=== PATIENT | female | born 1945 | race Caucasian/White ===

== ENCOUNTER → 2016-12-01 | Outpatient (CLI) | payer MEDICARE ==
--- NOTE | 2016-12-01 15:19 | XR ---
EXAMINATION TYPE: XR chest 2V DATE OF EXAM: 12/01/2016 COMPARISON: NONE HISTORY: Shortness of breath TECHNIQUE: Frontal and lateral views of the chest are obtained. FINDINGS: There is no focal air space opacity, pleural effusion, or pneumothorax seen. Within the me diastinum just inferior to the al there is a slight right acentrically located calcified mass gabriele suring 4.0 cm. This may relate to a large calcified granuloma although other etiologies are possible. The cardiac silhouette size is within normal limits. The osseous structures are intact. IMPRESSION: 1. No acute cardiopulmonary process. 2. 4 cm partially calcified structure within the middle mediastinum favored to be benign in etiology. Comparison with prior imaging would be of benefit. Alternatively this there is no prior imaging avai lable CT could be performed for further delineation if clinically warranted.
== END | disposition home or self-care (01) ==
LOC: CPPFTMAIN 13:12
PROVIDERS: ATTEND Internal Medicine Cardiovascular Disease
DX: R06.02 Shortness of breath (principal); I10 Essential (primary) hypertension
CPT/HCPCS: 36415; 71020; 83880; 94060; 94726; 94729

== ENCOUNTER 2016-12-14 07:21 | Emergency (ER) | payer MEDICARE ==
[2016-12-14] MEDS ORDERED: LORazepam 2 MG/ML SYRINGE IM STA (08:10)
[2016-12-14] MEDS ORDERED: LORazepam 1 MG TAB PO STA (08:10)
--- NOTE | 2016-12-14 08:16 | ED ---
Back Pain HPI - General Chief Complaint: Back Pain/Injury Stated Complaint: back pain Time Seen by Provider: 12/14/16 07:30 Source: patient, RN notes reviewed Limitations: no limitations - History of Present Illness Initial Comments: This is a 71-year-old female with a history of chronic back pain and OxyContin for for 2 years who states she ran out over last couple days. She states she was doing more activity usual with a lot of house guests and apparently took extra she's not able to get her prescription refilled until tomorrow. She states she is having some sweats and increased body aches and pains some nausea and diarrhea feel like he is going through withdrawals. She has no fevers. No sore throat cough rhinorrhea dysuria. MD Complaint: back pain, other - Related Data Home Medications Medication Instructions Recorded Confirmed Celecoxib [CeleBREX] 200 mg PO DAILY 11/07/14 12/14/16 Aspirin 81 mg PO HS 12/31/15 12/14/16 Cilostazol [Pletal] 100 mg PO BID 12/31/15 12/14/16 Gabapentin [Neurontin] 150 mg PO QAM 12/31/15 12/14/16 metFORMIN HCL [Glucophage] 850 mg PO BID 12/31/15 12/14/16 Diltiazem Cd [Cardizem Cd] 180 mg PO HS 01/06/16 12/14/16 Cyanocobalamin (Vitamin B-12) 1,000 mcg PO DAILY 12/14/16 12/14/16 [Vitamin B-12] DULoxetine HCL [Cymbalta] 60 mg PO DAILY 12/14/16 12/14/16 Ergocalciferol (Vitamin D2) 50,000 unit PO TUFR 12/14/16 12/14/16 [Vitamin D2] Gabapentin [Neurontin] 300 mg PO HS 12/14/16 12/14/16 Levothyroxine Sodium [Synthroid] 75 mcg PO DAILY 12/14/16 12/14/16 Magnesium Oxide [Mag-Ox] 500 mg PO DAILY 12/14/16 12/14/16 Olmesartan/Hydrochlorothiazide 1 tab PO DAILY 12/14/16 12/14/16 [Benicar Hct 40-25 mg Tablet] Potassium Chloride [Klor-Con 10] 10 meq PO DAILY 12/14/16 12/14/16 Rosuvastatin [Crestor] 20 mg PO HS 12/14/16 12/14/16 oxyCODONE HCL [OxyCONTIN] 20 mg PO TID PRN 12/14/16 12/14/16 Allergies Allergy/AdvReac Type Severity Reaction Status Date / Time No Known Allergies Allergy Verified 12/14/16 07:46 Review of Systems ROS Statement: Those systems with pertinent positive or pertinent negative responses have been documented in the HPI. ROS Other: All systems not noted in ROS Statement are negative. Past Medical History Past Medical History: Diabetes Mellitus, Hyperlipidemia, Hypertension, Osteoarthritis (OA), Thyroid Disorder, Vascular Disorder Additional Past Medical History / Comment(s): Pt. states poor circulation in RLE due to an artificial bypass. States has dizzy spells @ times. History of Any Multi-Drug Resistant Organisms: None Reported Past Surgical History: Appendectomy, Cholecystectomy Additional Past Surgical History / Comment(s): fem pop bypass. Past Anesthesia/Blood Transfusion Reactions: No Reported Reaction Past Psychological History: No Psychological Hx Reported, Depression Smoking Status: Former smoker - Past Family History Mother Family Medical History: Cancer Additional Family Medical History / Comment(s): Urterine General Exam - General Exam Comments Initial Comments: This is a well-developed well-nourished awake alert oriented 3 female Limitations: no limitations General appearance: alert, anxious Head exam: Present: atraumatic, normocephalic, normal inspection Eye exam: Present: normal appearance, PERRL, EOMI. Absent: scleral icterus, conjunctival injection, periorbital swelling ENT exam: Present: normal exam, mucous membranes moist Neck exam: Present: normal inspection. Absent: tenderness, meningismus, lymphadenopathy Respiratory exam: Present: normal lung sounds bilaterally. Absent: respiratory distress, wheezes, rales, rhonchi, stridor Cardiovascular Exam: Present: regular rate, normal rhythm, normal heart sounds. Absent: systolic murmur, diastolic murmur, rubs, gallop, clicks GI/Abdominal exam: Present: soft, normal bowel sounds. Absent: distended, tenderness, guarding, rebound, rigid Extremities exam: Present: normal inspection, full ROM, normal capillary refill. Absent: tenderness, pedal edema, joint swelling, calf tenderness Back exam: Present: normal inspection, tenderness (Mild times palpation of the paraspinous muscles of the lumbar spine is her usual area pain.) Neurological exam: Present: alert, oriented X3, CN II-XII intact Psychiatric exam: Present: normal affect, anxious Skin exam: Present: warm, dry, intact, normal color. Absent: rash Course Vital Signs 12/14/16 07:23 Temperature 97.0 F L Pulse Rate 102 H Respiratory 24 Rate Blood Pressure 187/98 O2 Sat by Pulse 98 Oximetry Medical Decision Making - Medical Decision Making I did discuss the findings with the patient she will be discharged after a pain shot she is in the early stages of withdrawal from narcotics. She'll be given medication take home she is to keep her follow-up tomorrow to get her prescription filled. Also follow-up with Dr. castillo when necessary Disposition Clinical Impression: Back pain, Medication withdrawal Disposition: HOME SELF-CARE Condition: Good Instructions: Chronic Back Pain (ED) Referrals: Diaz Alcala DO [Primary Care Provider] - 1-2 days
[2016-12-14] MEDS ORDERED: HYDROmorphone 1 MG/ML 1 ML SYRINGE IM STA (08:40)
[2016-12-14 08:49] VITALS: BP 160/97; PULSE 86; RESP 18; TEMP 97.8
== END 2016-12-14 08:57 | disposition home or self-care (01) ==
LOC: EC 07:21
DX: M54.9 Dorsalgia, unspecified (principal); F11.23 Opioid dependence with withdrawal; G89.29 Other chronic pain; E11.9 Type 2 diabetes mellitus without complications; E78.5 Hyperlipidemia, unspecified; I10 Essential (primary) hypertension; E07.9 Disorder of thyroid, unspecified; F32.9 Major depressive disorder, single episode, unspecified; I99.9 Unspecified disorder of circulatory system; Z87.891 Personal history of nicotine dependence; Z79.82 Long term (current) use of aspirin; Z79.899 Other long term (current) drug therapy; Z79.84 Long term (current) use of oral hypoglycemic drugs
CPT/HCPCS: 96372 ×3; 99283 ×2; J2060; J1170

== ENCOUNTER 2016-12-15 13:17 | Emergency (ER) | payer MEDICARE ==
[2016-12-15] MEDS ORDERED: chlordiazePOXIDE 25 MG CAP PO STA (14:06)
[2016-12-15] MEDS ORDERED: ONDANSETRON ODT 4 MG TAB PO STA (14:06)
[2016-12-15] MEDS ORDERED: oxyCODONE ER 20 MG TAB.ER.12H PO STA (14:09)
--- NOTE | 2016-12-15 14:10 | ED ---
Recheck HPI - General Chief Complaint: Recheck/Abnormal Lab/Rx Stated Complaint: Back Pain Source: patient Mode of arrival: wheelchair Limitations: no limitations - History of Present Illness Initial Comments: Patient is a 71-year-old female who presents for evaluation for possible withdrawal symptoms. Past medical history as below. Patient has been on 20 mg OxyContin 3 times a day for the past several years. She recently ran out of her prescription. She thought that she was coming to get a new prescription today. However, it is supposed to be tomorrow. She has a appointment with her primary care physician this afternoon at 5 PM. She was seen here yesterday with similar symptoms. She states that her symptoms 100% resolved after receiving narcotics here. She states that she has a "stomachache". She feels that she is freezing and is "chattering ". She is also having a couple episodes of diarrhea. She denies any other associated symptoms. She states that she takes the OxyContin for chronic back pain. There is been no change in her back pain. She denies any urinary retention or incontinence, stool incontinence, numbness or tingling to the lower chimneys which are new, fevers. She currently denies headaches, fevers, changes in mentation, URI symptoms, shortness breath, cough, chest pain, vomiting, pain or burning with urination. - Related Data Home Medications Medication Instructions Recorded Confirmed Celecoxib [CeleBREX] 200 mg PO DAILY 11/07/14 12/15/16 Aspirin 81 mg PO HS 12/31/15 12/15/16 Cilostazol [Pletal] 100 mg PO BID 12/31/15 12/15/16 Gabapentin [Neurontin] 150 mg PO M 12/31/15 12/15/16 metFORMIN HCL [Glucophage] 850 mg PO BID 12/31/15 12/15/16 Diltiazem Cd [Cardizem Cd] 180 mg PO HS 01/06/16 12/15/16 Cyanocobalamin (Vitamin B-12) 1,000 mcg PO DAILY 12/14/16 12/15/16 [Vitamin B-12] DULoxetine HCL [Cymbalta] 60 mg PO DAILY 12/14/16 12/15/16 Ergocalciferol (Vitamin D2) 50,000 unit PO TUFR 12/14/16 12/15/16 [Vitamin D2] Gabapentin [Neurontin] 300 mg PO HS 12/14/16 12/15/16 Levothyroxine Sodium [Synthroid] 75 mcg PO DAILY 12/14/16 12/15/16 Magnesium Oxide [Mag-Ox] 500 mg PO DAILY 12/14/16 12/15/16 Olmesartan/Hydrochlorothiazide 1 tab PO DAILY 12/14/16 12/15/16 [Benicar Hct 40-25 mg Tablet] Potassium Chloride [Klor-Con 10] 10 meq PO DAILY 12/14/16 12/15/16 Rosuvastatin [Crestor] 20 mg PO HS 12/14/16 12/15/16 oxyCODONE HCL [OxyCONTIN] 20 mg PO TID PRN 12/14/16 12/15/16 Allergies Allergy/AdvReac Type Severity Reaction Status Date / Time No Known Allergies Allergy Verified 12/15/16 13:55 Review of Systems ROS Statement: Those systems with pertinent positive or pertinent negative responses have been documented in the HPI. ROS Other: All systems not noted in ROS Statement are negative. Past Medical History Past Medical History: Diabetes Mellitus, Hyperlipidemia, Hypertension, Osteoarthritis (OA), Thyroid Disorder, Vascular Disorder Additional Past Medical History / Comment(s): Pt. states poor circulation in RLE due to an artificial bypass. States has dizzy spells @ times. History of Any Multi-Drug Resistant Organisms: None Reported Past Surgical History: Appendectomy, Cholecystectomy Additional Past Surgical History / Comment(s): fem pop bypass. Past Anesthesia/Blood Transfusion Reactions: No Reported Reaction Past Psychological History: No Psychological Hx Reported, Depression Smoking Status: Former smoker - Past Family History Mother Family Medical History: Cancer Additional Family Medical History / Comment(s): Urterine General Exam Limitations: no limitations General appearance: alert, in no apparent distress, other Head exam: Present: atraumatic, normocephalic, normal inspection Eye exam: Present: normal appearance, PERRL, EOMI. Absent: scleral icterus, conjunctival injection, periorbital swelling ENT exam: Present: normal exam, mucous membranes moist Neck exam: Present: normal inspection. Absent: tenderness, meningismus, lymphadenopathy Respiratory exam: Present: normal lung sounds bilaterally. Absent: respiratory distress, wheezes, rales, rhonchi, stridor Cardiovascular Exam: Present: regular rate, normal rhythm, normal heart sounds. Absent: systolic murmur, diastolic murmur, rubs, gallop, clicks GI/Abdominal exam: Present: soft, normal bowel sounds. Absent: distended, tenderness, guarding, rebound, rigid Extremities exam: Present: normal inspection, full ROM, normal capillary refill. Absent: tenderness, pedal edema, joint swelling, calf tenderness Back exam: Present: normal inspection Neurological exam: Present: alert, oriented X3, CN II-XII intact Psychiatric exam: Present: normal affect, normal mood Skin exam: Present: warm, dry, intact, normal color. Absent: rash Course Vital Signs 12/15/16 12/15/16 13:37 14:32 Temperature 98.1 F Pulse Rate 120 H 110 H Respiratory 22 16 Rate Blood Pressure 104/77 167/101 O2 Sat by Pulse 93 L Oximetry Medical Decision Making - Medical Decision Making 1400: Patient is a pleasant 71-year-old female who presents for evaluation for possible narcotic withdrawal symptoms. Identical symptoms yesterday which resolved with narcotic administration. Noted to be a little tachycardic and tachypnea, with labile blood pressure currently. Because which, believe that is prudent to give her her home dose of 20 mg OxyContin. We'll also give her some Zofran and 25 mg by mouth Librium. Discussed my apprehension for giving IV narcotics at this time. She has no other concerning signs or symptoms or history physical exam at this time. She is refusing further laboratory studies. Requests something to take the edge off so she can follow-up with her primary care physician to work out a long-term taper to her narcotics. We'll order an EKG. 1443: Reviewed EKG. Sinus tachycardia at 120. PVCs. GA 146. QRS 72. QTc 472. No STEMI criteria. 1450: I went to reevaluate the patient. She sitting in a chair next to her states she feels much improved. She received her medications about 10 minutes ago. She states that the edge has been taken off. I recommended further evaluation for the next 20-30 minutes but she states that she wants to go home. She states that she is hungry. She does not want to miss her appointment with Dr. Alcala. The patient stated that she is unwilling to stay further for further evaluation. Her heart rate is improved to the 90s on my examination. She appears comfortable. She is not having any chest pain and is no longer having any lightheadedness. Again reiterated that she wants to go home. She states that she will return immediately if she develops any change in her symptoms. I discussed further signs and symptoms on when to return to the emergency department for further evaluation. She voiced understanding. will watch her closely. Disposition Clinical Impression: Withdrawal from opioids Disposition: HOME SELF-CARE Condition: Good Instructions: Chronic Back Pain (ED), Opioid Withdrawal (ED) Referrals: Diaz Alcala DO [Primary Care Provider] - 1-2 days
[2016-12-15 14:33] VITALS: RESP 16
[2016-12-15 15:06] VITALS: BP 167/90; PULSE 94; TEMP 98
== END 2016-12-15 15:08 | disposition home or self-care (01) ==
LOC: EC 13:17
DX: F11.23 Opioid dependence with withdrawal (principal); R00.0 Tachycardia, unspecified; E11.9 Type 2 diabetes mellitus without complications; E78.5 Hyperlipidemia, unspecified; I10 Essential (primary) hypertension; M19.90 Unspecified osteoarthritis, unspecified site; E07.9 Disorder of thyroid, unspecified; F32.9 Major depressive disorder, single episode, unspecified; Z79.82 Long term (current) use of aspirin; Z79.84 Long term (current) use of oral hypoglycemic drugs; Z79.899 Other long term (current) drug therapy; Z87.891 Personal history of nicotine dependence
CPT/HCPCS: 93005; 99283

== ENCOUNTER → 2017-02-08 | Outpatient (CLI) | payer MEDICARE ==
[2017-02-08 11:52] LABS: Non-African American GFR(MDRD) >60 (>60 ml/min/1.73 sqM)
--- NOTE | 2017-02-08 13:18 | MR ---
EXAMINATION TYPE: MR brain wo/w con DATE OF EXAM: 02/08/2017 COMPARISON: NONE HISTORY: 71-year-old female with syncope and dizziness TECHNIQUE: Multiplanar, multisequence images of the brain and brainstem were acquired before and aft er administration of 7.5 mL IV Gadavist. Diffusion weighted imaging is performed. FINDINGS: No evidence for acute infarction, hemorrhage, mass, mass effect, midline shift, herniation, effacemen t of basal cisterns, or extra-axial fluid collection. The ventricles and sulci are age-appropriate with mild generalized supratentorial volume loss. Major intracranial flow voids are intact. There is persistent origin of the left LEAK PATCHER. On postco ntrast images, there may be stenosis of the proximal M1 segment left middle cerebral artery, axial im age 14, sagittal image 62, coronal image 15. T2/FLAIR weighted sequences show moderate scattered burden of right white matter change in the deep a nd periventricular white matter and additional foci in the subcortical white matter of both cerebral hemispheres. There is a partially empty sella. Otherwise, midline structures demonstrate normal morphology. The c raniocervical junction is normal. Post contrast images demonstrate no evidence of pathologic enhancement. Dural venous sinuses are pat ent. Partial opacification of the inferior mastoid air cells on both sides. Globes appear intact. IMPRESSION: 1. No acute intracranial abnormality seen. 2. Mild atrophy. Moderate scattered burden of T2 bright white matter change is nonspecific but probab ly relates to chronic small vessel ischemic disease. 3. Possible arterial stenosis involving the proximal M1 segment left MCA. MRA if clinically indicated . 4. Some trapped fluid within the inferior mastoid air cells on both sides. Correlate for any mastoid pain to exclude mastoiditis.
== END | disposition home or self-care (01) ==
LOC: RADMRIMAIN 10:57
PROVIDERS: ATTEND Psychiatry & Neurology Pain Medicine
DX: G31.9 Degenerative disease of nervous system, unspecified (principal); R90.82 White matter disease, unspecified
CPT/HCPCS: 82565; 70553; 36415; A9581

== ENCOUNTER → 2017-02-09 | Outpatient (CLI) | payer MEDICARE ==
--- NOTE | 2017-02-09 12:23 | MR ---
EXAMINATION TYPE: MR lumbar spine wo con DATE OF EXAM: 02/09/2017 COMPARISON: 10/07/2015 HISTORY: Low back pain TECHNIQUE: T1 and T2 axial and sagittal images of the lumbar spine are submitted. FINDINGS: There is no abnormal signal seen within the visualized spinal cord or paraspinal soft tissues. Simple appearing tiny left renal cyst noted. At T11-T12 there is a sagittal disc bulge. Axial images did not include this area. At T12-L1 no disc herniation or canal stenosis. Mild hypertrophic change of the facets. No foraminal encroachment At L1-2 there is circumferential disc bulging greater paracentrally the right and hypertrophic gomez e of the facets. Mild bilateral foraminal encroachment and effacement of thecal sac. At L2-3 there is no disc herniation or canal stenosis tiny 2 mm right facet synovial cyst suspected. No foraminal encroachment. There is circumferential disc bulging greater paracentrally right and there now is mild bilateral foraminal encroachment. At L3-4 there is mild degenerative disc disease and facet arthropathy. No canal stenosis. There is mild circumferential disc bulging greater to the right with mild right foraminal encroachment but no nerve root impingement. At L4-5 there is severe facet arthropathy. Central disc herniation and grade 1 anterolisthesis with severe degenerative disc disease. There is progression of bilateral foraminal encroachment and c anal stenosis. At L5-S1 there is degenerative disc disease and severe facet arthropathy. Mild to moderate bilateral foraminal encroachment. There is a broad-based left paracentral disc protrusion or small he rniation. There is mild to moderate bilateral foraminal encroachment.. Minimal anterolisthesis ident ified. IMPRESSION: 1. Multilevel degenerative disc disease with severe changes at L4-L5 and L5-S1. Progression of disc herniation L4-L5 with severe canal stenosis and bilateral foraminal encroachment. 2. Degenerative grade 1 anterolisthesis of L4 on L5 is stable. 3. Stable broad-based left paracentral disc protrusion or small herniation L5-S1 with effacement of t hecal sac and foraminal encroachment. 4. Disc bulging L3-4 is stable. 5. Disc bulging L2-L3 and with mild bilateral foraminal encroachment.
== END | disposition home or self-care (01) ==
LOC: RADMRIMAIN 10:59
PROVIDERS: ATTEND Psychiatry & Neurology Pain Medicine
DX: M48.061 Spinal stenosis, lumbar region without neurogenic claudication (principal); M51.27 Other intervertebral disc displacement, lumbosacral region; M43.16 Spondylolisthesis, lumbar region; M51.37 Other intervertebral disc degeneration, lumbosacral region; R55 Syncope and collapse
CPT/HCPCS: 72148

== ENCOUNTER → 2017-10-31 | Outpatient (CLI) | payer MEDICARE ==
[2017-10-31 11:58] LABS: ALT 34 U/L (9-52); AST 25 U/L (14-36); Alkaline Phosphatase 129 U/L (38-126); Anion Gap 11 mmol/L; Blood Urea Nitrogen 9 mg/dL (7-17); Calcium 10.1 mg/dL (8.4-10.2); Carbon Dioxide 29 mmol/L (22-30); Chloride 99 mmol/L (98-107); Glucose 218 mg/dL (74-99); Potassium 4.1 mmol/L (3.5-5.1); Sodium 139 mmol/L (137-145); Total Bilirubin 0.4 mg/dL (0.2-1.3); Total Protein 6.3 g/dL (6.3-8.2)
[2017-10-31 19:07] LABS: Hemoglobin A1C 8.7 % (4.0-6.0)
== END | disposition home or self-care (01) ==
LOC: LABWHC1 11:04
PROVIDERS: ATTEND Nurse Practitioner Acute Care
DX: E11.9 Type 2 diabetes mellitus without complications (principal)
CPT/HCPCS: 36415; 80053; 83036

== ENCOUNTER → 2017-10-31 | Outpatient (CLI) | payer MEDICARE ==
[2017-10-31 11:54] LABS: INR 0.9 (<1.2); Prothrombin Time 9.3 sec (9.0-12.0)
[2017-10-31 11:56] LABS: Basophils # (A) 0.1 k/uL (0-0.2); Basophils % (A) 1 %; Eosinophils # (A) 0.5 k/uL (0-0.7); Eosinophils % (A) 5 %; HCT 38.8 % (34.0-46.0); HGB 13.1 gm/dL (11.4-16.0); Lymphocytes # (A) 1.2 k/uL (1.0-4.8); Lymphocytes % (A) 12 %; MCH 27.7 pg (25.0-35.0); MCHC 33.8 g/dL (31.0-37.0); MCV 81.9 fL (80.0-100.0); Mean Platelet Volume 6.4; Monocytes # (A) 0.4 k/uL (0-1.0); Monocytes % (A) 4 %; Neutrophils # (A) 7.8 k/uL (1.3-7.7); Neutrophils % (A) 76 %; Platelet Count 352 k/uL (150-450); RBC 4.74 m/uL (3.80-5.40); RDW 15.1 % (11.5-15.5); WBC 10.2 k/uL (3.8-10.6)
== END | disposition home or self-care (01) ==
LOC: LABPAT 10:34
PROVIDERS: ATTEND Orthopaedic Surgery
DX: Z01.812 Encounter for preprocedural laboratory examination (principal); M19.011 Primary osteoarthritis, right shoulder; E11.9 Type 2 diabetes mellitus without complications
CPT/HCPCS: 36415; 85025; 85610; 87070

== ENCOUNTER 2017-12-08 06:21 | Inpatient (IN) | payer MEDICARE ==
[~2017-12-08 06:21] MED LIST: ASPIRIN 325 MG TAB PO ONE; SODIUM CHLORIDE 0.9% 1,000 ML in EMPTY BAG 1 BAG IV ONE
[2017-12-08 07:11] LABS: Glucose,Whole Blood 167 mg/dL (75-99)
[2017-12-08 07:12] LABS: Basophils # (A) 0.1 k/uL (0-0.2); Basophils % (A) 1 %; Eosinophils # (A) 0.2 k/uL (0-0.7); Eosinophils % (A) 2 %; HCT 39.7 % (34.0-46.0); HGB 13.2 gm/dL (11.4-16.0); Lymphocytes # (A) 1.6 k/uL (1.0-4.8); Lymphocytes % (A) 14 %; MCH 26.5 pg (25.0-35.0); MCHC 33.3 g/dL (31.0-37.0); MCV 79.6 fL (80.0-100.0); Monocytes # (A) 0.6 k/uL (0-1.0); Monocytes % (A) 5 %; Neutrophils # (A) 8.5 k/uL (1.3-7.7); Neutrophils % (A) 77 %; Platelet Count 364 k/uL (150-450); RBC 4.98 m/uL (3.80-5.40); RDW 14.6 % (11.5-15.5); WBC 11.1 k/uL (3.8-10.6)
[2017-12-08 07:23] LABS: Anion Gap 9 mmol/L; Blood Urea Nitrogen 14 mg/dL (7-17); Calcium 9.8 mg/dL (8.4-10.2); Carbon Dioxide 24 mmol/L (22-30); Chloride 106 mmol/L (98-107); Glucose 174 mg/dL (74-99); Potassium 3.2 mmol/L (3.5-5.1); Sodium 139 mmol/L (137-145)
[2017-12-08] MEDS ORDERED: MIDAZOLAM 2 MG/2 ML VIAL IV ONE (07:43)
[2017-12-08] MEDS ORDERED: fentaNYL (PF) 50 MCG/ML 2 ML AMP IV ONE (07:43)
[2017-12-08] MEDS ORDERED: LIDOCAINE 1% INJ 10MG/ML (20 ML MDV) SQ ONE (07:44)
[2017-12-08] MEDS ORDERED: ENALAPRILAT 1.25 MG/ML 1 ML VIAL IV ONE (07:48)
[2017-12-08] MEDS ORDERED: IOPAMIDOL-370 125ML BTL INJ ONE (08:03)
[2017-12-08] MEDS ORDERED: NITROGLYCERIN-D5W PMX 50 MG in DEXTROSE/WATER 1 250ML.BAG IV ONE (08:03)
[2017-12-08] MEDS ORDERED: amLODIPine 5 MG TAB PO STA (08:11)
[2017-12-08] MEDS ORDERED: Potassium Replacement Protocol 1 EACH MISC MISCELLANE PRN (08:12)
[2017-12-08] MEDS ORDERED: RX INFO: IV CONTRAST WAS GIVEN 1 EACH MISC MISCELLANE PRN (08:14)
[2017-12-08] MEDS ORDERED: NITROGLYCERIN SL TABS 0.4 MG TAB SUBLINGUAL PRN (08:17)
--- NOTE | 2017-12-08 08:22 | P.CARDCATH ---
Date of Procedure: 12/08/17 Preoperative Diagnosis: Positive stress test, pre up evaluation and multiple risk factors Postoperative Diagnosis: Significant can be artery disease involving left main ostial circumflex and mid LAD. Procedure(s) Performed: Left heart catheterization without left ventriculography Description of Procedure: HISTORY: This is a 72-year-old female with history of obesity, diabetes type 2, hypertension and hyperlipidemia who recently had a nuclear stress test for preoperative evaluation. Patient was found to have evidence of ischemia in the inferoseptal area. Given her risk factor profile, patient is advised to have a cardiac catheterization. Patient denied any chest pain but complains of exertional shortness of breath CONSENT:I have discussed the risks, benefits and alternative therapies for the above-mentioned procedure and for both sedation/analgesia as well as necessary blood product administration, if indicated, as they pertain to this patient. The patient has indicated understanding and acceptance of the risks and procedures discussed. [] PROCEDURE: Patient was brought to the lab in a fasting state. Patient was given some IV sedation. The left groin is infiltrated with lidocaine and left femoral artery was entered using Seldinger technique. A 6-Albanian catheter was left in place and selective coronary arteriography was performed. Patient tolerated the procedure well. Femoral angiogram was performed and manual compression was applied for hemostasis. No immediate complications were noted and patient was transferred to [facility] in a stable condition Conscious Sedation: Versed 1mg Fentanyl 25g Duration 20minutes HEMODYNAMICS: The aortic pressure is about 170/100. Left ankle end-diastolic pressure is about 12-15. No gradient across the aortic valve SELECTIVE CORONARY ARTERIOGRAPHY: LEFT MAIN: There is a distal left main disease which appears to be at least 60-70%. This seemed to be eccentric. This extends into the proximal circumflex THE LEFT ANTERIOR DESCENDING CORONARY ARTERY:. This a moderate caliber vessel with a 70% mid LAD lesion. THE LEFT CIRCUMFLEX AND IS CORONARY ARTERY: This is a moderate caliber vessel with about 70% eccentric lesion involving the ostium THE RIGHT CORONARY ARTERY:. This a dominant vessel appears to be free of any significant focal disease LEFT VENTRICULOGRAPHY: Not performed FINAL IMPRESSION:. Significant coronary artery disease involving left main mid LAD and also ostial circumflex PLAN: Coronary bypass surgery. Patient to be evaluated bradycardic suggestive. Films are also reviewed by Dr. Tellez PROGNOSIS: Guarded
[2017-12-08] MEDS ORDERED: ISOSORBIDE MONONITRATE ER 30 MG TAB.ER.24H PO STA (08:33)
[2017-12-08] MEDS: SODIUM CHLORIDE 0.9% 1,000 ML IV SCH ×2 (08:40→21:21)
[2017-12-08] MEDS ORDERED: NON-FORMULARY DRUG (Olmesartan/Hydrochlorothiazide [Benicar Hct 40-25 Mg Tablet] 1 TAB) PO SCH (09:00)
[2017-12-08] MEDS ORDERED: LOSARTAN 50 MG TAB PO SCH (09:00)
[2017-12-08] MEDS ORDERED: MD COMMUNICATION TO PHARMACY 1 EACH MISC PO ONE ×2 (09:10→11:57)
[2017-12-08] MEDS: oxyCODONE ER 15 MG TAB.ER.12H PO SCH ×3 (09:13→21:20)
[2017-12-08] MEDS: POTASSIUM CHLORIDE ER 20 MEQ TAB.ER PO SCH ×2 (09:14→12:02)
[2017-12-08] MEDS ORDERED: MORPHINE SULFATE 2 MG/ML SYRINGE IVP ONE (09:30)
[2017-12-08] MEDS: ALPRAZolam 0.25 MG TAB PO PRN (09:44)
[2017-12-08] MEDS: DULoxetine HCL 60 MG CAPSULE.DR PO SCH (09:58)
[2017-12-08] MEDS ORDERED: LORazepam 2 MG/ML INJ IV PRN (10:03)
[2017-12-08] MEDS ORDERED: LORazepam 2 MG/ML INJ IV STA (10:03)
[2017-12-08 10:11] LABS: ALT 27 U/L (9-52); AST 19 U/L (14-36); Alkaline Phosphatase 113 U/L (38-126); Cholesterol 129 mg/dL (<200); HDL Cholesterol 66 mg/dL (40-60); LDL Cholesterol,Calculated 45 mg/dL (0-99); Total Bilirubin 0.3 mg/dL (0.2-1.3); Total Protein 6.4 g/dL (6.3-8.2); Triglycerides 89 mg/dL (<150)
[2017-12-08] MEDS: LEVOTHYROXINE 75 MCG TAB PO SCH (11:04)
[2017-12-08] MEDS: HYDROCHLOROTHIAZIDE 25 MG TAB PO SCH (11:04)
[2017-12-08 11:53] LABS: Glucose,Whole Blood 156 mg/dL (75-99)
[2017-12-08] MEDS ORDERED: ERGOCALCIFEROL 50,000 UNIT CAP PO SCH (12:00)
[2017-12-08] MEDS: CYANOCOBALAMIN 500 MCG TAB PO SCH (12:01)
--- NOTE | 2017-12-08 12:11 | US ---
EXAMINATION TYPE: US carotid duplex BILAT DATE OF EXAM: 12/08/2017 COMPARISON: NONE CLINICAL HISTORY: preop cardiac surgery. HTN, no hx of TIA EXAM MEASUREMENTS: RIGHT: Peak Systolic Velocity (PSV) cm/sec ----- Right CCA: 58.4 ----- Right ICA: 119.4 ----- Right ECA: 104.8 ICA/CCA ratio: 2.0 RIGHT: End Diastole cm/sec ----- Right CCA: 17.4 ----- Right ICA: 19.2 ----- Right ECA: 20.8 LEFT: Peak Systolic Velocity (PSV) cm/sec ----- Left CCA: 52.3 ----- Left ICA: 77.9 ----- Left ECA: 78.8 ICA/CCA ratio: 1.5 LEFT: End Diastole cm/sec ----- Left CCA: 17.4 ----- Left ICA: 31.8 ----- Left ECA: 20.6 VERTEBRALS (direction of flow): Right Vertebral: Antegrade Left Vertebral: Antegrade Rhythm: Arrhythmia Plaque seen in bilateral bulbs and prox left CCA. No elevated velocities. No wall thickening. Limited exam due to patient unable to hold still and talking during exam. IMPRESSION: 1. Mild degree of grayscale atheromatous plaquing with no sonographically evident hemodynamically sig nificant stenosis within either visualized carotid arterial system. 2. Incidentally noted cardiac arrhythmia. Correlate with EKG.
[2017-12-08 12:37] LABS: Appearance,Urine Cloudy (Clear); Bacteria,Urine Occasional /hpf; Bilirubin,Urine Negative (Negative); Blood,Urine Moderate (Negative); Color,Urine Yellow; Glucose,Urine (UA) Negative (Negative); Ketones,Urine Negative (Negative); Leukocyte Esterase,Urine Small (Negative); Mucus,Urine Rare /hpf; Nitrite,Urine Negative (Negative); PH, Urine 7.5 (5.0-8.0); Protein,Urine Negative (Negative); RBC,Urine 2 /hpf (0-5); Specific Gravity,Urine 1.044 (1.001-1.035); Squamous Epithelial Cell,Urine 1 /hpf (0-4); Urobilinogen,Urine <2.0 mg/dL (<2.0); WBC,Urine 3 /hpf (0-5)
[2017-12-08 12:39] LABS: Partial Thromboplastin Time 21.4 sec (22.0-30.0); Prothrombin Time 10.1 sec (9.0-12.0)
--- NOTE | 2017-12-08 14:32 | P.GSCN ---
History of Present Illness Consult date: 12/08/17 Reason for Consult: Coronary artery disease with left main disease, surgical recommendations. Requesting physician: Mariah Blackmon History of present illness: This is a 72-year-old female patient who follows with Dr. Alcala on an outpatient basis. She has a previous medical history of coronary artery disease , hypertension, hyperlipidemia, diabetes mellitus, hypothyroid, peripheral vascular disease status post right fem-pop bypass, previous tobacco dependence with FEV1 109% of predicted in November 2016, recent fall in June 2017 with torn right rotator cuff, DVT with previous Coumadin use greater than 2 years ago , syncopal episodes, paroxysmal atrial fibrillation, chronic low back pain, obesity, and depression. She apparently has had shortness of breath episodes for the last couple of years which she attributed to her previous tobacco dependence. She denies any chest pain or other anginal type symptoms. She was being worked up for right rotator cuff repair, was seen by cardiology, and had a stress test which was positive for inferoseptal ischemia. She was recommended to undergo heart catheterization which was completed this morning and which demonstrated left main disease of 60-70% which extends into the proximal circumflex, mid LAD lesion of 70%, 70% ostial lesion of the left circumflex, and no significant right coronary artery disease. Dr. Olvera from cardiothoracic surgery was consulted for recommendations regarding surgical revascularization. Review of Systems Review of systems was completed and was negative except as noted. - Cardiovascular Reports decreased exercise tolerance, Reports dyspnea on exertion, Reports shortness of breath, Reports syncope - Respiratory Reports dyspnea - Musculoskeletal Musculoskeleta Comment(s): Walks with a cane Reports low back pain right: shoulder pain Past Medical History Past Medical History: Atrial Fibrillation, Coronary Artery Disease (CAD), Diabetes Mellitus, Hyperlipidemia, Hypertension, Osteoarthritis (OA), Thyroid Disorder, Vascular Disorder Additional Past Medical History / Comment(s): Pt. states poor circulation in RLE due to an artificial bypass. SOB, dizzy spells @ times. See Dr. Blackmon' s H & P. Chronic back pain, bilateral shoulder problems. History of Any Multi-Drug Resistant Organisms: None Reported Past Surgical History: Appendectomy, Breast Surgery, Cholecystectomy, Orthopedic Surgery Additional Past Surgical History / Comment(s): Femoral popliteal bypass. Bilateral knee replacements. Left breast surgery for benign tumor. Epidurals to lower back. Past Anesthesia/Blood Transfusion Reactions: No Reported Reaction Past Psychological History: Anxiety, Depression Smoking Status: Former smoker Past Alcohol Use History: Rare Additional Past Alcohol Use History / Comment(s): Quit smoking in 2007, smoked 1 PPD x 42 yrs. Past Drug Use History: None Reported - Past Family History Mother Family Medical History: Cancer Additional Family Medical History / Comment(s): Uterine cancer. Medications and Allergies Home Medications Medication Instructions Recorded Confirmed Type Aspirin 81 mg PO HS 12/31/15 12/08/17 History Cilostazol [Pletal] 100 mg PO BID 12/31/15 12/08/17 History DULoxetine HCL [Cymbalta] 60 mg PO DAILY 12/14/16 12/08/17 History Ergocalciferol (Vitamin D2) 50,000 unit PO TUFR 12/14/16 12/08/17 History [Vitamin D2] Levothyroxine Sodium [Synthroid] 75 mcg PO DAILY 12/14/16 12/08/17 History Olmesartan/Hydrochlorothiazide 1 tab PO DAILY 12/14/16 12/08/17 History [Benicar Hct 40-25 mg Tablet] Rosuvastatin [Crestor] 20 mg PO HS 12/14/16 12/08/17 History Ibuprofen [Motrin] 800 mg PO BID 11/21/17 12/08/17 History Cyanocobalamin [Vitamin B-12] 500 mcg PO DAILY 12/04/17 12/08/17 History metFORMIN HCL [Glucophage] 500 mg PO BID 12/04/17 12/08/17 History oxyCODONE HCL [OxyCONTIN] 30 mg PO TID 12/04/17 12/08/17 History Allergies Allergy/AdvReac Type Severity Reaction Status Date / Time No Known Allergies Allergy Verified 12/08/17 06:38 Surgical - Exam Vital Signs Temp Pulse Resp BP Pulse Ox 98.2 F 82 18 153/74 93 L 12/08/17 07:03 12/08/17 07:03 12/08/17 07:03 12/08/17 07:03 12/08/17 07:03 - General well developed, well nourished, no distress, no pain, obese - Eyes PERRL, normal ocular movement - ENT no hearing loss - Neck no masses, no bruits, trachea midline - Respiratory Lungs sounds clear bilaterally. Respirations even, nonlabored. Currently on room air with oxygen saturation 93%. No chest wall deformities. - Cardiovascular S1, S2 present. Regular rate and rhythm, sinus rhythm on telemetry. Palpable peripheral pulses bilaterally. No edema present. No calf pain or tenderness noted. Positive left radial Juventino's test. - Abdomen Abdomen: soft, non tender, bowel sounds - Genitourinary Deferred - Rectum Deferred - Integumentary no rash, no growths - Neurologic normal coordination, normal sensation - Psychiatric oriented to time, oriented to person, oriented to place, speech is normal, memory intact Results - Labs 12/08/17 06:55 12/08/17 13:34 Abnormal Lab Results - Last 24 Hours (Table) 12/08/17 12/08/17 12/08/17 Range/Units 06:55 06:55 07:00 WBC 11.1 H (3.8-10.6) k/uL MCV 79.6 L (80.0-100.0) fL Neutrophils # 8.5 H (1.3-7.7) k/uL APTT (22.0-30.0) sec Potassium 3.2 L (3.5-5.1) mmol/L Creatinine 0.43 L (0.52-1.04) mg/dL Glucose 174 H (74-99) mg/dL POC Glucose (mg/dL) 167 H (75-99) mg/dL HDL Cholesterol 66 H (40-60) mg/dL Urine Appearance (Clear) Ur Specific [place] (1.001-1.035) Urine Blood (Negative) Ur Leukocyte Esterase (Negative) Urine Bacteria (None) /hpf Urine Mucus (None) /hpf 12/08/17 12/08/17 12/08/17 Range/Units 11:20 11:42 12:00 WBC (3.8-10.6) k/uL MCV (80.0-100.0) fL Neutrophils # (1.3-7.7) k/uL APTT 21.4 L (22.0-30.0) sec Potassium (3.5-5.1) mmol/L Creatinine (0.52-1.04) mg/dL Glucose (74-99) mg/dL POC Glucose (mg/dL) 156 H (75-99) mg/dL HDL Cholesterol (40-60) mg/dL Urine Appearance Cloudy H (Clear) Ur Specific [place] 1.044 H (1.001-1.035) Urine Blood Moderate H (Negative) Ur Leukocyte Esterase Small H (Negative) Urine Bacteria Occasional H (None) /hpf Urine Mucus Rare H (None) /hpf Diabetes panel 12/08/17 12/08/17 Range/Units 06:55 13:34 Sodium 139 (137-145) mmol/L Potassium 3.2 L 3.8 (3.5-5.1) mmol/L Chloride 106 (98-107) mmol/L Carbon Dioxide 24 (22-30) mmol/L BUN 14 (7-17) mg/dL Creatinine 0.43 L (0.52-1.04) mg/dL Glucose 174 H (74-99) mg/dL Calcium 9.8 (8.4-10.2) mg/dL AST 19 (14-36) U/L ALT 27 (9-52) U/L Alkaline Phosphatase 113 (38-126) U/L Total Protein 6.4 (6.3-8.2) g/dL Albumin 4.0 (3.5-5.0) g/dL Triglycerides 89 (<150) mg/dL HDL Cholesterol 66 H (40-60) mg/dL Thyroid panel 12/08/17 Range/Units 06:55 TSH 2.940 (0.465-4.680) mIU/L Calcium panel 12/08/17 Range/Units 06:55 Calcium 9.8 (8.4-10.2) mg/dL Albumin 4.0 (3.5-5.0) g/dL Pituitary panel 12/08/17 12/08/17 Range/Units 06:55 13:34 Sodium 139 (137-145) mmol/L Potassium 3.2 L 3.8 (3.5-5.1) mmol/L Chloride 106 (98-107) mmol/L Carbon Dioxide 24 (22-30) mmol/L BUN 14 (7-17) mg/dL Creatinine 0.43 L (0.52-1.04) mg/dL Glucose 174 H (74-99) mg/dL Calcium 9.8 (8.4-10.2) mg/dL TSH 2.940 (0.465-4.680) mIU/L Adrenal panel 12/08/17 12/08/17 Range/Units 06:55 13:34 Sodium 139 (137-145) mmol/L Potassium 3.2 L 3.8 (3.5-5.1) mmol/L Chloride 106 (98-107) mmol/L Carbon Dioxide 24 (22-30) mmol/L BUN 14 (7-17) mg/dL Creatinine 0.43 L (0.52-1.04) mg/dL Glucose 174 H (74-99) mg/dL Calcium 9.8 (8.4-10.2) mg/dL Total Bilirubin 0.3 (0.2-1.3) mg/dL AST 19 (14-36) U/L ALT 27 (9-52) U/L Alkaline Phosphatase 113 (38-126) U/L Total Protein 6.4 (6.3-8.2) g/dL Albumin 4.0 (3.5-5.0) g/dL - Imaging Additional studies: Heart catheterization films reviewed. Assessment and Plan (1) Coronary artery disease involving left main coronary artery Current Visit: Yes Status: Chronic Code(s): I25.10 - ATHSCL HEART DISEASE OF [place] CORONARY ARTERY W/O ANG PCTRS SNOMED Code(s): 989599429 (2) Hypertension Current Visit: Yes Status: Chronic Code(s): I10 - ESSENTIAL (PRIMARY) HYPERTENSION SNOMED Code(s): 57482423 (3) Hyperlipidemia Current Visit: Yes Status: Chronic Code(s): E78.5 - HYPERLIPIDEMIA, UNSPECIFIED SNOMED Code(s): 84587453 (4) Diabetes Current Visit: Yes Status: Chronic Code(s): E11.9 - TYPE 2 DIABETES MELLITUS WITHOUT COMPLICATIONS SNOMED Code(s): 73773776 (5) Peripheral vascular disease Current Visit: Yes Status: Chronic Code(s): I73.9 - PERIPHERAL VASCULAR DISEASE, UNSPECIFIED SNOMED Code(s): 821007429 (6) Family history of heart disease Current Visit: Yes Status: Chronic Code(s): Z82.49 - FAMILY HX OF ISCHEM HEART DIS AND OTH DIS OF THE CIRC SYS SNOMED Code(s): 370388022 (7) Tobacco dependence in remission Current Visit: No Status: Resolved Code(s): F17.201 - NICOTINE DEPENDENCE, UNSPECIFIED, IN REMISSION SNOMED Code(s): 518074403 (8) Hypothyroid Current Visit: Yes Status: Chronic Code(s): E03.9 - HYPOTHYROIDISM, UNSPECIFIED SNOMED Code(s): 51042010 (9) Syncopal episodes Current Visit: No Status: Chronic Code(s): R55 - SYNCOPE AND COLLAPSE SNOMED Code(s): 771449226 (10) History of DVT (deep vein thrombosis) Current Visit: No Status: Resolved Code(s): Z86.718 - PERSONAL HISTORY OF OTHER VENOUS THROMBOSIS AND EMBOLISM SNOMED Code(s): 558521314 (11) History of atrial fibrillation Current Visit: No Status: Resolved Code(s): Z86.79 - PERSONAL HISTORY OF OTHER DISEASES OF THE CIRCULATORY SYSTEM SNOMED Code(s): 898674843 (12) Chronic low back pain Current Visit: Yes Status: Chronic Code(s): M54.5 - LOW BACK PAIN; G89.29 - OTHER CHRONIC PAIN SNOMED Code(s): 305686889 (13) Depression Current Visit: Yes Status: Chronic Code(s): F32.9 - MAJOR DEPRESSIVE DISORDER, SINGLE EPISODE, UNSPECIFIED SNOMED Code(s): 94535117 Plan: The patient was seen and examined at the bedside. Chart/diagnostics were reviewed. Heart catheterization films were reviewed with Dr. Olvera. Of note patient had an echocardiogram completed in the cardiology office on 11/09/2017 demonstrating normal LV systolic function with an ejection fraction of 55%, mild concentric hypertrophy, trace mitral regurgitation, mild tricuspid regurgitation, and mild pulmonic regurgitation. At this time preoperative testing has been initiated. We will include a CT of the chest without contrast to assess the 4 cm calcified structure in the mediastinum which was demonstrated on the chest x-ray in November 2016. Preoperative teaching has been initiated. We would recommend continuing aspirin and statin, as well as initiating beta sheree therapy. We would hold cilostazol, as well as ARB, calcium channel blockers 48 hours prior to surgery to prevent hypotension intra- and postoperative. Our plan is for urgent coronary artery bypass grafting 2-3 vessels with left internal mammary artery and endoscopic vein harvest, modified Cline maze and exclusion of the left atrial appendage on 12/11/2017 pending the results of preoperative testing. This was discussed in detail with the patient and her , risks and benefits of surgery were discussed, and the patient and her are agreeable to surgery. STS risk score will be calculated once patient's testing has been completed. All questions have been answered to the best of our ability. More recommendations to follow. Thank you Dr. Blackmon for this consult. We look forward to working with you in the care of your patient. Time with Patient: Greater than 30
[2017-12-08] MEDS ORDERED: POTASSIUM CHLORIDE ER 20 MEQ TAB.ER PO SCH (15:00)
[2017-12-08] MEDS ORDERED: MORPHINE SULFATE 4 MG/ML SYRINGE ONE (15:28)
--- NOTE | 2017-12-08 16:59 | CT ---
EXAMINATION TYPE: CT chest wo con DATE OF EXAM: 12/08/2017 COMPARISON: None HISTORY: Calcified mediastinal structure. CT DLP: 484 mGycm. Automated Exposure Control for Dose Reduction was Utilized. TECHNIQUE: CT scan of the thorax is performed without IV contrast. FINDINGS: There is minimal interstitial density at the right posterior lung base consistent with scarring or rocha bsegmental atelectasis. There is no evidence of a pulmonary mass. Thoracic aorta is atheromatous. Asc ending aorta measures 3.8 cm. There is no evidence of aneurysm. Heart size is normal. There is no per icardial effusion. There are numerous calcified splenic granulomata. There are numerous bilateral nick al large calcifications consistent with nonobstructing calculi. There are clips from cholecystectomy. There is dense coronary artery calcification. There is 2.8 cm calcified subcarinal lymph node. There are smaller up to 1 cm calcified pretracheal l ymph nodes. IMPRESSION: Old granulomatous disease. Minimal scarring or subsegmental atelectasis at the right lung base. Numerous renal calculi. Atherosclerotic vascular disease.
[2017-12-08 17:02] LABS: Glucose,Whole Blood 169 mg/dL (75-99)
[2017-12-08 17:34] LABS: Hepatitis A Antibody IgM Non-Reactive (Non-Reactive); Hepatitis B Core IgM Non-Reactive (Non-Reactive)
[2017-12-08] MEDS: INSULIN ASPART 100 UNIT/ML 1 ML 10 ML VIAL SQ SCH ×2 (17:40→21:15)
[2017-12-08] MEDS: ATORVASTATIN 40 MG TAB PO SCH (20:09)
[2017-12-08] MEDS: MUPIROCIN 2% OINT 22 GM TUBE NASAL SCH (20:10)
[2017-12-08 20:11] LABS: Hemoglobin A1C 8.1 % (4.0-6.0)
[2017-12-08 20:50] LABS: Glucose,Whole Blood 143 mg/dL (75-99)
[2017-12-08] MEDS ORDERED: IPRATROPIUM-ALBUTEROL 3 ML NEB INHALATION PRN (22:19)
--- NOTE | 2017-12-08 23:39 | HP ---
HISTORY AND PHYSICAL DATE OF SERVICE: 12/08/2017 CHIEF COMPLAINT: Chest pain. HISTORY OF PRESENT ILLNESS: This 72-year-old woman with a past history of multiple medical problems was admitted after a possible stress test. The patient had atrial fibrillation, CAD, diabetes mellitus, hypertension, hyperlipidemia, being followed by Dr. Alcala in the outpatient setting. The cardiac catheterization showed significant disease of the LAD and ostial circumflex and Cardiothoracic Surgery was consulted for tentative surgery on Monday. The patient still has occasional cough as well as nasal discharge. There is no history of fever, rigors. No history of headache, loss of consciousness. The patient had 40- year pack history of smoking. PAST MEDICAL HISTORY: Atrial fibrillation, CAD, diabetes mellitus, hyperlipidemia, hypertension, DJD, history of appendectomy, breast surgery. MEDICATIONS PRIOR TO ADMISSION: Include home medications are: 1. OxyContin 30 mg p.o. t.i.d. 2. Glucophage 500 mg p.o. b.i.d. 3. Crestor 10 mg q.h.s. 4. Benicar 1 p.o. daily. 5. Synthroid 75 mcg p.o. daily. 6. Motrin 800 mg p.o. b.i.d. 7. Vitamin D2 50,000 Monday, Monday. 8. Cymbalta 60 mg p.o. daily. 9. Vitamin B12 500 mcg p.o. daily. 10.Pletal 100 mg p.o. b.i.d. 11.Aspirin 81 mg p.o. q.h.s. ALLERGIES: None. FAMILY HISTORY: History of uterine cancer in the family. SOCIAL HISTORY: Remote history of smoking, as mentioned earlier, almost 40 pack years of smoking. Occasional alcohol intake. REVIEW OF SYSTEMS: ENT: No diminished hearing, diminished vision. CARDIOVASCULAR: No angina. Otherwise as mentioned earlier. RESPIRATORY: As mentioned earlier. GI: No nausea or vomiting. : No dysuria. NERVOUS: No numbness or weakness. ALLERGY/IMMUNOLOGY: No asthma or hay fever. MUSCULOSKELETAL: As mentioned earlier. HEMATOLOGY/ONCOLOGY: No history of anemia. ENDOCRINE: Hypothyroidism. CONSTITUTIONAL: As mentioned earlier. DERMATOLOGY: Negative. RHEUMATOLOGY: Negative. PSYCHIATRY: As mentioned earlier. PHYSICAL EXAMINATION: Alert and oriented. Pulse is 89, blood pressure 119/58, respirations 17, temperature 97.6, pulse ox 94% on room air. HEENT: Conjunctivae normal. Oral mucosa moist. NECK: No jugular venous distention. No carotid bruits. No lymph node enlargement. CARDIOVASCULAR: S1, S2 muffled. RESPIRATORY: Breath sounds diminished in the bases. A few scattered rhonchi. No crackles. ABDOMEN: Soft, nontender. No mass palpable. LEGS: No edema. No swelling. NERVOUS SYSTEM: Higher functions as mentioned earlier. Moves all 4 limbs. No focal motor or sensory deficits. LYMPHATIC: No lymphadenopathy in neck or axillae. SKIN: No ulcer, rash or bleeding. LABS: WBC 11.1 and glucose 143. UA: Small leukocyte esterase. ASSESSMENT: 1. Positive coronary artery disease with left anterior descending and also circumflex stenosis in the cardiac catheterization. 2. Atrial fibrillation. 3. History of coronary artery disease. 4. Diabetes mellitus type 2. 5. Hypertension. 6. Hyperlipidemia. 7. Osteoarthritis. 8. Hypothyroidism. 9. Possible allergic rhinitis. 10.Rule out chronic obstructive pulmonary disease. 11.Remote history of nicotine dependence. 12.Anxiety and depression. 13.Possible urinary tract infection. RECOMMENDATIONS AND DISCUSSION: In this 72-year-old woman who presented with multiple medical issues, at this time I recommend to continue the current medical management, continue symptomatic treatment. Otherwise at this time, I would recommend to continue the current medications, course of bronchodilators, Claritin. Also recommend consultation with Pulmonary. Otherwise, I would also recommend monitor the blood sugars closely, Accu-Cheks a.c. and at bedtime and scale. We will closely follow with Cardiothoracic Surgery. Prognosis guarded; however, the patient is medically stable at this time. Further recommendations to follow. See orders for further details. MMODL / IJN: [id number] /
[2017-12-09] MEDS: cefTRIAXone IN SWFI 1,000 MG/10 ML SYRINGE IVP SCH (03:59)
[2017-12-09 06:22] LABS: Basophils # (A) 0.1 k/uL (0-0.2); Basophils % (A) 1 %; Eosinophils # (A) 0.1 k/uL (0-0.7); Eosinophils % (A) 1 %; HCT 35.7 % (34.0-46.0); HGB 11.8 gm/dL (11.4-16.0); Lymphocytes # (A) 1.5 k/uL (1.0-4.8); Lymphocytes % (A) 18 %; MCH 27.1 pg (25.0-35.0); MCHC 33.1 g/dL (31.0-37.0); MCV 81.9 fL (80.0-100.0); Mean Platelet Volume 7.1; Monocytes # (A) 0.5 k/uL (0-1.0); Monocytes % (A) 6 %; Neutrophils # (A) 6.3 k/uL (1.3-7.7); Neutrophils % (A) 73 %; Platelet Count 322 k/uL (150-450); RBC 4.36 m/uL (3.80-5.40); RDW 14.9 % (11.5-15.5); WBC 8.7 k/uL (3.8-10.6)
[2017-12-09 06:27] LABS: Glucose,Whole Blood 134 mg/dL (75-99)
[2017-12-09 06:41] LABS: ALT 28 U/L (9-52); AST 15 U/L (14-36); Albumin 3.1 g/dL (3.5-5.0); Alkaline Phosphatase 86 U/L (38-126); Anion Gap 5 mmol/L; Blood Urea Nitrogen 14 mg/dL (7-17); Calcium 8.9 mg/dL (8.4-10.2); Carbon Dioxide 23 mmol/L (22-30); Chloride 112 mmol/L (98-107); Glucose 138 mg/dL (74-99); Potassium 4.1 mmol/L (3.5-5.1); Sodium 140 mmol/L (137-145); Total Bilirubin 0.2 mg/dL (0.2-1.3); Total Protein 5.2 g/dL (6.3-8.2)
[2017-12-09] MEDS: INSULIN ASPART 100 UNIT/ML 1 ML 10 ML VIAL SQ SCH ×4 (06:54→20:42)
[2017-12-09] MEDS: LEVOTHYROXINE 75 MCG TAB PO SCH (06:54)
[2017-12-09] MEDS: IPRATROPIUM-ALBUTEROL 3 ML NEB INHALATION SCH ×3 (08:06→20:06)
[2017-12-09] MEDS: ASPIRIN 325 MG TAB PO SCH (08:29)
[2017-12-09] MEDS: DULoxetine HCL 60 MG CAPSULE.DR PO SCH (08:30)
[2017-12-09] MEDS: HYDROCHLOROTHIAZIDE 25 MG TAB PO SCH (08:30)
[2017-12-09] MEDS: oxyCODONE ER 15 MG TAB.ER.12H PO SCH ×3 (08:31→21:29)
[2017-12-09] MEDS: METOPROLOL TARTRATE 12.5 MG TAB PO SCH ×2 (08:31→19:27)
[2017-12-09] MEDS: MUPIROCIN 2% OINT 22 GM TUBE NASAL SCH ×2 (08:33→19:27)
--- NOTE | 2017-12-09 09:39 | P.PN ---
Subjective Progress Note Date: 12/09/17 Principal diagnosis: Coronary artery disease with critical left main disease. [place] medical history of hypertension, hyperlipidemia, diabetes mellitus, hypothyroid, peripheral vascular disease status post right fem-pop bypass, previous tobacco dependence with FEV1 109% of predicted in November 2016, recent fall in June 2017 with torn right rotator cuff, DVT with previous Coumadin use greater than 2 years ago , syncopal episodes, paroxysmal atrial fibrillation, chronic low back pain, obesity, and depression. Patient's currently sitting up in bed in no acute distress. Denies any chest pain or shortness of breath last night. States she has ambulated to the bathroom without any complications. Objective - Vital Signs Vital signs: Vital Signs Temp 98.1 F 12/09/17 04:00 Pulse 90 12/09/17 04:00 Resp 17 12/09/17 04:00 BP 116/76 12/09/17 04:00 Pulse Ox 95 12/09/17 04:00 Intake & Output 12/08/17 12/09/17 12/09/17 18:59 06:59 18:59 Intake Total 762.4 1175 240 Output Total 425 Balance 337.4 1175 240 Weight 80.6 kg Intake: IV 202.4 825 Sodium Chloride 0.9% 1, 75 825 000 ml @ 75 mls/hr IV . [id number] WILLIAM Rx#:[id number] Oral 560 350 240 Output: Urine 425 Other: Voiding Method Toilet # Voids 2 - Constitutional General appearance: Present: cooperative, no acute distress, obese - Respiratory Details: Lungs sounds clear bilaterally. Respirations even, nonlabored. Currently on room air with oxygen saturation 95%. Able to achieve 2000 mL on her incentive spirometry. Effective cough. - Cardiovascular Details: S1, S2 present. Regular rate and rhythm, sinus rhythm on telemetry. Palpable peripheral pulses bilaterally. No edema present. No calf pain or tenderness noted. - Gastrointestinal Gastrointestinal Comment(s): Abdomen soft, nontender, nondistended. Active bowel sounds 4 quadrants. Tolerating diet. - Genitourinary Genitourinary Comment(s): Continues to void clear, yellow urine. - Integumentary Integumentary Comment(s): Skin is warm and dry with evidence of good perfusion. Left groin soft, nontender, no drainage. - Neurologic Neurologic: Present: CNII-XII intact - Musculoskeletal Musculoskeletal Comment(s): Patient walks with a cane. Musculoskeletal: Present: gait normal, strength equal bilaterally - Psychiatric Psychiatric: Present: A&O x's 3, appropriate affect, intact judgment & insight - Allied health notes Allied health notes reviewed: nursing - Labs CBC & Chem 7: 12/09/17 05:54 12/09/17 05:54 Labs: Abnormal Lab Results - Last 24 Hours (Table) 12/08/17 12/08/17 12/08/17 Range/Units 06:55 11:20 11:42 APTT 21.4 L (22.0-30.0) sec Potassium 3.2 L (3.5-5.1) mmol/L Chloride (98-107) mmol/L Creatinine 0.43 L (0.52-1.04) mg/dL Glucose 174 H (74-99) mg/dL POC Glucose (mg/dL) 156 H (75-99) mg/dL Total Protein (6.3-8.2) g/dL Albumin (3.5-5.0) g/dL HDL Cholesterol 66 H (40-60) mg/dL Urine Appearance (Clear) Ur Specific [place] (1.001-1.035) Urine Blood (Negative) Ur Leukocyte Esterase (Negative) Urine Bacteria (None) /hpf Urine Mucus (None) /hpf 12/08/17 12/08/17 12/08/17 Range/Units 12:00 16:59 20:47 APTT (22.0-30.0) sec Potassium (3.5-5.1) mmol/L Chloride (98-107) mmol/L Creatinine (0.52-1.04) mg/dL Glucose (74-99) mg/dL POC Glucose (mg/dL) 169 H 143 H (75-99) mg/dL Total Protein (6.3-8.2) g/dL Albumin (3.5-5.0) g/dL HDL Cholesterol (40-60) mg/dL Urine Appearance Cloudy H (Clear) Ur Specific [place] 1.044 H (1.001-1.035) Urine Blood Moderate H (Negative) Ur Leukocyte Esterase Small H (Negative) Urine Bacteria Occasional H (None) /hpf Urine Mucus Rare H (None) /hpf 12/09/17 12/09/17 Range/Units 05:54 06:24 APTT (22.0-30.0) sec Potassium (3.5-5.1) mmol/L Chloride 112 H (98-107) mmol/L Creatinine 0.40 L (0.52-1.04) mg/dL Glucose 138 H (74-99) mg/dL POC Glucose (mg/dL) 134 H (75-99) mg/dL Total Protein 5.2 L (6.3-8.2) g/dL Albumin 3.1 L (3.5-5.0) g/dL HDL Cholesterol (40-60) mg/dL Urine Appearance (Clear) Ur Specific [place] (1.001-1.035) Urine Blood (Negative) Ur Leukocyte Esterase (Negative) Urine Bacteria (None) /hpf Urine Mucus (None) /hpf Microbiology - Last 24 Hours (Table) 12/08/17 12:00 Urine Culture - Preliminary Urine,Clean Catch 12/08/17 12:00 Nasal Screen MRSA/MSSA - Preliminary Nasal Swab - Imaging and Cardiology CT scan - chest: report reviewed, image reviewed Assessment and Plan (1) Coronary artery disease involving left main coronary artery Current Visit: Yes Status: Chronic Code(s): I25.10 - ATHSCL HEART DISEASE OF [place] CORONARY ARTERY W/O ANG PCTRS SNOMED Code(s): 662658350 (2) Hypertension Current Visit: Yes Status: Chronic Code(s): I10 - ESSENTIAL (PRIMARY) HYPERTENSION SNOMED Code(s): 10991922 (3) Hyperlipidemia Current Visit: Yes Status: Chronic Code(s): E78.5 - HYPERLIPIDEMIA, UNSPECIFIED SNOMED Code(s): 22461888 (4) Diabetes Current Visit: Yes Status: Chronic Code(s): E11.9 - TYPE 2 DIABETES MELLITUS WITHOUT COMPLICATIONS SNOMED Code(s): 20098852 (5) Peripheral vascular disease Current Visit: Yes Status: Chronic Code(s): I73.9 - PERIPHERAL VASCULAR DISEASE, UNSPECIFIED SNOMED Code(s): 498088803 (6) Family history of heart disease Current Visit: Yes Status: Chronic Code(s): Z82.49 - FAMILY HX OF ISCHEM HEART DIS AND OTH DIS OF THE CIRC SYS SNOMED Code(s): 551203391 (7) Tobacco dependence in remission Current Visit: No Status: Resolved Code(s): F17.201 - NICOTINE DEPENDENCE, UNSPECIFIED, IN REMISSION SNOMED Code(s): 320849792 (8) Hypothyroid Current Visit: Yes Status: Chronic Code(s): E03.9 - HYPOTHYROIDISM, UNSPECIFIED SNOMED Code(s): 02756252 (9) Syncopal episodes Current Visit: No Status: Chronic Code(s): R55 - SYNCOPE AND COLLAPSE SNOMED Code(s): 377704882 (10) History of DVT (deep vein thrombosis) Current Visit: No Status: Resolved Code(s): Z86.718 - PERSONAL HISTORY OF OTHER VENOUS THROMBOSIS AND EMBOLISM SNOMED Code(s): 939909786 (11) History of atrial fibrillation Current Visit: No Status: Resolved Code(s): Z86.79 - PERSONAL HISTORY OF OTHER DISEASES OF THE CIRCULATORY SYSTEM SNOMED Code(s): 210426963 (12) Chronic low back pain Current Visit: Yes Status: Chronic Code(s): M54.5 - LOW BACK PAIN; G89.29 - OTHER CHRONIC PAIN SNOMED Code(s): 510501785 (13) Depression Current Visit: Yes Status: Chronic Code(s): F32.9 - MAJOR DEPRESSIVE DISORDER, SINGLE EPISODE, UNSPECIFIED SNOMED Code(s): 13594674 Plan: 1. Continue aspirin, statin, beta sheree. 2. Continue preoperative teaching. 3. Encourage incentive spirometry is 10 times every hour. 4. Continue to hold cilostazol, ARB, CCB. 5. Increase activity, ambulate in the hallway. Will obtain 5 m walk test today. 6. Will review preoperative testing results and discuss indications with patient. 7. Medical management of other comorbidities per primary care service. 8. Plan is for urgent coronary artery bypass grafting 2-3 vessels with left internal mammary artery and endoscopic vein harvest, modified Cline maze and exclusion of the left atrial appendage on 12/11/2017. 9. More recommendations to follow. Time with Patient: Greater than 30
--- NOTE | 2017-12-09 11:02 | P.CNPUL ---
<Cassandra Gaona M - Last Filed: 12/09/17 10:44> History of Present Illness Consult date: 12/09/17 Requesting physician: Mayank Yousif Reason for consult: other Chief complaint: Abnormal stress test, coronary artery disease History of present illness: Mrs. Sellers is a 72-year-old white female patient of Dr. Alcala who was undergoing cardiac evaluation for clearance for her upcoming right rotator cuff repair, was found to have inferoseptal ischemia on the nuclear stress test. Cardiac catheterization showed left main disease of 60-70%, extending into the proximal circumflex, mid LAD of 70%, and 70% ostial lesion of the left circumflex, and no significant right coronary artery disease. She was recommended surgical intervention for which she is scheduled on Monday, on 12/11. Past medical history is positive for diabetes mellitus type 2, hypertension, hyperlipidemia, hypothyroidism, peripheral vascular disease status post right fem-pop bypass, previous nicotine dependence, quit smoking 10 years ago, carries [id number] smoking history, DVT with previous Coumadin use , paroxysmal atrial fibrillation, chronic back pain, obesity and depression. Patient had a spirometry PFT in November 2016 which showed FEV1 of 109%. We are seeing this patient in consultation for pulmonary management for the upcoming coronary artery bypass grafting surgery. Review of Systems All systems: negative Constitutional: Denies chills, Denies fever Eyes: denies blurred vision, denies pain Ears, nose, mouth and throat: Denies headache, Denies sore throat Cardiovascular: Reports dyspnea on exertion, Denies chest pain, Denies shortness of breath Respiratory: Denies cough Gastrointestinal: Denies abdominal pain, Denies diarrhea, Denies nausea, Denies vomiting Genitourinary: Denies dysuria, Denies hematuria Musculoskeletal: Denies myalgias Integumentary: Denies pruritus, Denies rash Neurological: Denies numbness, Denies weakness Psychiatric: Denies anxiety, Denies depression Endocrine: Denies fatigue, Denies weight change Past Medical History Past Medical History: Atrial Fibrillation, Coronary Artery Disease (CAD), Diabetes Mellitus, Hyperlipidemia, Hypertension, Osteoarthritis (OA), Thyroid Disorder, Vascular Disorder Additional Past Medical History / Comment(s): Pt. states poor circulation in RLE due to an artificial bypass. SOB, dizzy spells @ times. See Dr. Blackmon' s H & P. Chronic back pain, bilateral shoulder problems. History of Any Multi-Drug Resistant Organisms: None Reported Past Surgical History: Appendectomy, Breast Surgery, Cholecystectomy, Orthopedic Surgery Additional Past Surgical History / Comment(s): Femoral popliteal bypass. Bilateral knee replacements. Left breast surgery for benign tumor. Epidurals to lower back. Past Anesthesia/Blood Transfusion Reactions: No Reported Reaction Past Psychological History: Anxiety, Depression Smoking Status: Former smoker Past Alcohol Use History: Rare Additional Past Alcohol Use History / Comment(s): Quit smoking in 2007, smoked 1 PPD x 42 yrs. Past Drug Use History: None Reported - Past Family History Mother Family Medical History: Cancer Additional Family Medical History / Comment(s): Uterine cancer. Medications and Allergies Home Medications Medication Instructions Recorded Confirmed Type Aspirin 81 mg PO HS 12/31/15 12/08/17 History Cilostazol [Pletal] 100 mg PO BID 12/31/15 12/08/17 History DULoxetine HCL [Cymbalta] 60 mg PO DAILY 12/14/16 12/08/17 History Ergocalciferol (Vitamin D2) 50,000 unit PO TUFR 12/14/16 12/08/17 History [Vitamin D2] Levothyroxine Sodium [Synthroid] 75 mcg PO DAILY 12/14/16 12/08/17 History Olmesartan/Hydrochlorothiazide 1 tab PO DAILY 12/14/16 12/08/17 History [Benicar Hct 40-25 mg Tablet] Rosuvastatin [Crestor] 20 mg PO HS 12/14/16 12/08/17 History Ibuprofen [Motrin] 800 mg PO BID 11/21/17 12/08/17 History Cyanocobalamin [Vitamin B-12] 500 mcg PO DAILY 12/04/17 12/08/17 History metFORMIN HCL [Glucophage] 500 mg PO BID 12/04/17 12/08/17 History oxyCODONE HCL [OxyCONTIN] 30 mg PO TID 12/04/17 12/08/17 History Allergies Allergy/AdvReac Type Severity Reaction Status Date / Time No Known Allergies Allergy Verified 12/08/17 06:38 Physical Exam Vitals: Vital Signs Temp Pulse Resp BP BP Pulse Ox 12/09/17 08:00 97.8 F 98 18 132/87 98 12/09/17 04:00 98.1 F 90 17 116/76 95 12/08/17 23:15 89 17 12/08/17 23:12 98.7 F 89 17 113/56 97 12/08/17 20:00 97.6 F 89 17 119/58 94 L 12/08/17 17:06 16 12/08/17 17:04 97.8 F 86 16 102/70 97 12/08/17 14:00 90 16 102/71 95 12/08/17 13:00 83 12 119/63 95 12/08/17 12:00 86 16 108/73 95 12/08/17 11:30 89 103/70 93 L 12/08/17 11:00 89 16 119/69 12/08/17 10:45 87 16 119/68 91 L Intake and Output 12/08/17 12/09/17 12/09/17 22:59 06:59 14:59 Intake Total 360 1175 240 Balance 360 1175 240 Intake: IV 825 Sodium Chloride 0.9% 1, 825 000 ml @ 75 mls/hr IV . [id number] [facility] Rx#:[id number] Oral 360 350 240 Other: Voiding Method Toilet Toilet # Voids 1 2 Weight 80.6 kg GENERAL EXAM: Alert, pleasant 9-year-old white female comfortable in no apparent distress. HEAD: Normocephalic/atraumatic. EYES: Normal reaction of pupils, equal size. Conjunctiva pink, sclera white. NOSE: Clear with pink turbinates. THROAT: No erythema or exudates. NECK: No masses, no JVD, no thyroid enlargement, no adenopathy. CHEST: No chest wall deformity. Symmetrical expansion. LUNGS: Equal air entry with no crackles, wheeze, rhonchi or dullness. CVS: Regular rate and rhythm, normal S1 and S2, no gallops, no murmurs, no rubs ABDOMEN: Soft, nontender. No hepatosplenomegaly, normal bowel sounds, no guarding or rigidity. EXTREMITIES: No clubbing, no edema, no cyanosis, 2+ pulses and upper and lower extremities. MUSCULOSKELETAL: Muscle strength and tone normal. SPINE: No scoliosis or deformity SKIN: No rashes CENTRAL NERVOUS SYSTEM: Alert and oriented -3. No focal deficits, tone is normal in all 4 extremities. PSYCHIATRIC: Alert and oriented -3. Appropriate affect. Intact judgment and insight. Results - Laboratory Findings CBC and BMP: 12/09/17 05:54 12/09/17 05:54 PT/INR, D-dimer PT 10.1 sec (9.0-12.0) 12/08/17 11:20 INR 1.0 (<1.2) 12/08/17 11:20 Abnormal lab findings: Abnormal Labs 12/08/17 12/08/17 12/08/17 06:55 06:55 07:00 WBC 11.1 H MCV 79.6 L Neutrophils # 8.5 H APTT Potassium 3.2 L Chloride Creatinine 0.43 L Glucose 174 H POC Glucose (mg/dL) 167 H Total Protein Albumin HDL Cholesterol 66 H Urine Appearance Ur Specific [place] Urine Blood Ur Leukocyte Esterase Urine Bacteria Urine Mucus 12/08/17 12/08/17 12/08/17 11:20 11:42 12:00 WBC MCV Neutrophils # APTT 21.4 L Potassium Chloride Creatinine Glucose POC Glucose (mg/dL) 156 H Total Protein Albumin HDL Cholesterol Urine Appearance Cloudy H Ur Specific [place] 1.044 H Urine Blood Moderate H Ur Leukocyte Esterase Small H Urine Bacteria Occasional H Urine Mucus Rare H 12/08/17 12/08/17 12/09/17 16:59 20:47 05:54 WBC MCV Neutrophils # APTT Potassium Chloride 112 H Creatinine 0.40 L Glucose 138 H POC Glucose (mg/dL) 169 H 143 H Total Protein 5.2 L Albumin 3.1 L HDL Cholesterol Urine Appearance Ur Specific [place] Urine Blood Ur Leukocyte Esterase Urine Bacteria Urine Mucus 12/09/17 06:24 WBC MCV Neutrophils # APTT Potassium Chloride Creatinine Glucose POC Glucose (mg/dL) 134 H Total Protein Albumin HDL Cholesterol Urine Appearance Ur Specific [place] Urine Blood Ur Leukocyte Esterase Urine Bacteria Urine Mucus - Diagnostic Findings CT scan - chest: report reviewed, image reviewed Additional studies: Carotid Doppler results reviewed Assessment and Plan Plan: Assessment: #1. Multivessel coronary artery disease, involving left main coronary artery. And is awaiting coronary artery bypass grafting surgery on Monday on 12/11/2017 #2. Retention #3. Hyperlipidemia #4. Diabetes mellitus 2 #5. Obesity #6. Peripheral vascular disease #7. History of nicotine dependence, currently in remission, quit 10 years ago, carries [id number] smoking history #8. Hypothyroidism #9. Paroxysmal atrial fibrillation, currently in sinus rhythm #10. Chronic low back pain #11. Depression Plan: Patient's CT chest, PFT results and labs have been reviewed. Normal PFT. Patient denies any dyspnea, denies any chest pain, vital signs are stable, surgery has been scheduled for Monday. Continue encouraging incentive spirometry, she is able to achieve 2000ml today. Continue monitoring cardiac rate and rhythm, episodes of chest pain, labs, and vital signs. I performed a history & physical examination of the patient and discussed their management with my nurse practitioner, Cassandra Gaona. I reviewed the nurse practitioner's note and agree with the documented findings and plan of care. Lung sounds are clear. The findings and the impression was discussed with the patient. I attest to the documentation by the nurse practitioner. Time with Patient: Greater than 30 <Paloma Salas - Last Filed: 12/09/17 12:37> Physical Exam Vitals: Vital Signs Temp Pulse Pulse Resp BP BP Pulse Ox 12/09/17 11:35 80 12/09/17 11:25 77 12/09/17 08:00 97.8 F 98 18 132/87 98 12/09/17 04:00 98.1 F 90 17 116/76 95 12/08/17 23:15 89 17 12/08/17 23:12 98.7 F 89 17 113/56 97 12/08/17 20:00 97.6 F 89 17 119/58 94 L 12/08/17 17:06 16 12/08/17 17:04 97.8 F 86 16 102/70 97 12/08/17 14:00 90 16 102/71 95 12/08/17 13:00 83 12 119/63 95 Intake and Output 12/08/17 12/09/17 12/09/17 22:59 06:59 14:59 Intake Total 360 1175 240 Balance 360 1175 240 Intake: IV 825 Sodium Chloride 0.9% 1, 825 000 ml @ 75 mls/hr IV . [id number] [facility] Rx#:[id number] Oral 360 350 240 Other: Voiding Method Toilet Toilet # Voids 1 2 Weight 80.6 kg Results - Laboratory Findings CBC and BMP: 12/09/17 05:54 12/09/17 05:54 PT/INR, D-dimer PT 10.1 sec (9.0-12.0) 12/08/17 11:20 INR 1.0 (<1.2) 12/08/17 11:20 Abnormal lab findings: Abnormal Labs 12/08/17 12/08/17 12/08/17 06:55 06:55 07:00 WBC 11.1 H MCV 79.6 L Neutrophils # 8.5 H APTT Potassium 3.2 L Chloride Creatinine 0.43 L Glucose 174 H POC Glucose (mg/dL) 167 H Total Protein Albumin HDL Cholesterol 66 H Urine Appearance Ur Specific [place] Urine Blood Ur Leukocyte Esterase Urine Bacteria Urine Mucus 12/08/17 12/08/17 12/08/17 11:20 11:42 12:00 WBC MCV Neutrophils # APTT 21.4 L Potassium Chloride Creatinine Glucose POC Glucose (mg/dL) 156 H Total Protein Albumin HDL Cholesterol Urine Appearance Cloudy H Ur Specific [place] 1.044 H Urine Blood Moderate H Ur Leukocyte Esterase Small H Urine Bacteria Occasional H Urine Mucus Rare H 12/08/17 12/08/17 12/09/17 16:59 20:47 05:54 WBC MCV Neutrophils # APTT Potassium Chloride 112 H Creatinine 0.40 L Glucose 138 H POC Glucose (mg/dL) 169 H 143 H Total Protein 5.2 L Albumin 3.1 L HDL Cholesterol Urine Appearance Ur Specific [place] Urine Blood Ur Leukocyte Esterase Urine Bacteria Urine Mucus 12/09/17 12/09/17 06:24 11:09 WBC MCV Neutrophils # APTT Potassium Chloride Creatinine Glucose POC Glucose (mg/dL) 134 H 172 H Total Protein Albumin HDL Cholesterol Urine Appearance Ur Specific [place] Urine Blood Ur Leukocyte Esterase Urine Bacteria Urine Mucus Assessment and Plan Plan: A joint evaluation along with the nurse practitioner. CAT scan of the chest was reviewed. 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 In any rate, PFTs are okay and the patient will proceed with cardiac bypass surgery on Monday.
[2017-12-09 11:24] LABS: Glucose,Whole Blood 172 mg/dL (75-99)
[2017-12-09] MEDS: LORATADINE 10 MG TAB PO SCH (11:31)
[2017-12-09] MEDS: CYANOCOBALAMIN 500 MCG TAB PO SCH (11:31)
[2017-12-09] MEDS: SODIUM CHLORIDE 0.9% 1,000 ML IV SCH (11:35)
[2017-12-09 16:16] LABS: Glucose,Whole Blood 213 mg/dL (75-99)
--- NOTE | 2017-12-09 18:10 | PN ---
PROGRESS NOTE DATE OF SERVICE: 12/09/2017 This 72-year-old woman who was admitted with chest pain also had significant coronary artery disease, for CABG. No chest pain or palpitation. No fever currently. PHYSICAL EXAMINATION: On exam, alert and oriented x3. Pulse 77, blood pressure 138/80, respiration 18, temperature 97.8, pulse ox 94% on room air. HEENT: Conjunctivae normal. Oral mucosa moist. Neck is no jugular venous distention. No carotid bruit. No lymph node enlargement. CARDIOVASCULAR: S1, S2 muffled. RESPIRATORY: Breath sounds diminished at the bases. No rhonchi, no crackles. ABDOMEN: Soft, nontender. LEGS: No edema, no swelling. NERVOUS SYSTEM: No focal deficits. LABS: CBC within normal limits. Sodium 140. Glucose 138. ASSESSMENT: 1. Coronary artery disease with left anterior descending also circumflex stenosis, status post cardiac catheterization for coronary artery bypass grafting. 2. History of atrial fibrillation. 3. History of coronary artery disease. 4. Diabetes mellitus type 2. 5. Hypertension. 6. Hyperlipidemia. 7. History of degenerative joint disease. 8. Hypothyroidism. 9. History of possible allergic rhinitis. 10.Possible chronic obstructive pulmonary disease. 11.History of nicotine dependence. 12.Anxiety, depression. 13.Urinary tract infection. RECOMMENDATIONS AND DISCUSSION: Recommend to continue current medications. Continue with symptomatic treatment. Otherwise at this time, will monitor the patient closely. Continue the current medications. See orders for details. Closely follow. Cardiothoracic surgery evaluation. Further recommendations to follow. MMODL / IJN: [id number] / MTDD
[2017-12-09] MEDS: ATORVASTATIN 40 MG TAB PO SCH (19:26)
[2017-12-09 20:35] LABS: Glucose,Whole Blood 197 mg/dL (75-99)
[2017-12-10] MEDS: SODIUM CHLORIDE 0.9% 1,000 ML IV SCH (02:00)
--- NOTE | 2017-12-10 03:22 | PN ---
PROGRESS NOTE This patient underwent a cardiac catheterization yesterday. Patient has been found to have significant left main coronary artery disease the patient is doing fairly well and remained stable. Denies any anginal pain. Patient is being seen by a cardiothoracic surgeon as well as pulmonary people and evaluated. She remains stable. First and second heart sounds are normal. Lungs are clinically clear to auscultation and percussion. Patient's Cozaar was discontinued. We will continue the rest of the medications. MMODL / IJN: [id number] /
[2017-12-10] MEDS: cefTRIAXone IN SWFI 1,000 MG/10 ML SYRINGE IVP SCH (03:31)
[2017-12-10 05:49] LABS: Glucose,Whole Blood 143 mg/dL (75-99)
[2017-12-10 06:23] LABS: Basophils # (A) 0.1 k/uL (0-0.2); Basophils % (A) 1 %; Eosinophils # (A) 0.2 k/uL (0-0.7); Eosinophils % (A) 2 %; HCT 40.4 % (34.0-46.0); HGB 13.1 gm/dL (11.4-16.0); Lymphocytes # (A) 1.8 k/uL (1.0-4.8); Lymphocytes % (A) 19 %; MCH 26.6 pg (25.0-35.0); MCHC 32.5 g/dL (31.0-37.0); MCV 81.9 fL (80.0-100.0); Mean Platelet Volume 7.1; Monocytes # (A) 0.5 k/uL (0-1.0); Monocytes % (A) 5 %; Neutrophils # (A) 6.9 k/uL (1.3-7.7); Neutrophils % (A) 72 %; Platelet Count 365 k/uL (150-450); RBC 4.93 m/uL (3.80-5.40); RDW 14.7 % (11.5-15.5); WBC 9.6 k/uL (3.8-10.6)
[2017-12-10] MEDS: INSULIN ASPART 100 UNIT/ML 1 ML 10 ML VIAL SQ SCH ×4 (06:34→21:07)
[2017-12-10] MEDS: LEVOTHYROXINE 75 MCG TAB PO SCH (06:34)
[2017-12-10 06:44] LABS: ALT 28 U/L (9-52); AST 19 U/L (14-36); Albumin 3.7 g/dL (3.5-5.0); Alkaline Phosphatase 99 U/L (38-126); Anion Gap 6 mmol/L; Blood Urea Nitrogen 10 mg/dL (7-17); Calcium 9.5 mg/dL (8.4-10.2); Carbon Dioxide 27 mmol/L (22-30); Chloride 107 mmol/L (98-107); Glucose 139 mg/dL (74-99); Potassium 4.4 mmol/L (3.5-5.1); Sodium 140 mmol/L (137-145); Total Bilirubin 0.2 mg/dL (0.2-1.3); Total Protein 5.9 g/dL (6.3-8.2)
[2017-12-10] MEDS: HYDROCHLOROTHIAZIDE 25 MG TAB PO SCH (08:21)
[2017-12-10] MEDS: DULoxetine HCL 60 MG CAPSULE.DR PO SCH (08:21)
[2017-12-10] MEDS: ASPIRIN 325 MG TAB PO SCH (08:22)
[2017-12-10] MEDS: METOPROLOL TARTRATE 12.5 MG TAB PO SCH ×2 (08:23→21:02)
[2017-12-10] MEDS: LORATADINE 10 MG TAB PO SCH (08:23)
[2017-12-10] MEDS: oxyCODONE ER 15 MG TAB.ER.12H PO SCH ×3 (08:23→21:06)
[2017-12-10] MEDS: MUPIROCIN 2% OINT 22 GM TUBE NASAL SCH ×2 (08:25→21:03)
[2017-12-10] MEDS: IPRATROPIUM-ALBUTEROL 3 ML NEB INHALATION SCH ×3 (08:44→21:06)
--- NOTE | 2017-12-10 08:45 | P.PN ---
Subjective Progress Note Date: 12/10/17 Principal diagnosis: Coronary artery disease with critical left main disease. Previous medical history of hypertension, hyperlipidemia, diabetes mellitus, hypothyroid, peripheral vascular disease status post right fem-pop bypass, previous tobacco dependence with FEV1 109% of predicted in November 2016, recent fall in June 2017 with torn right rotator cuff, questionable DVT with previous Coumadin use greater than 2 years ago, syncopal episodes, paroxysmal atrial fibrillation, chronic low back pain, obesity, and depression. Preoperative E. coli urinary tract infection. Patient's currently sitting up in bed in no acute distress. Denies any chest pain or shortness of breath last night. States she has ambulated to the bathroom without any complications. No new questions, feels prepared for surgery tomorrow. Objective - Vital Signs Vital signs: Vital Signs Temp 98 F 12/10/17 04:00 Pulse 73 12/10/17 04:00 Resp 17 12/10/17 04:00 BP 118/57 12/10/17 04:00 Pulse Ox 97 12/10/17 04:00 Intake & Output 12/09/17 12/10/17 12/10/17 18:59 06:59 18:59 Intake Total 702 1225 Output Total 600 Balance 102 1225 Weight 79.2 kg Intake: IV 825 Sodium Chloride 0.9% 1, 825 000 ml @ 75 mls/hr IV . [id number] [facility] Rx#:[id number] Oral 702 400 Output: Urine 600 Other: Voiding Method Toilet # Voids 2 - Constitutional General appearance: Present: cooperative, no acute distress, obese - Respiratory Details: Lungs sounds clear bilaterally. Respirations even, nonlabored. Currently on room air with oxygen saturation 97%. Able to achieve 5681-3392 mL on her incentive spirometry. Effective cough. - Cardiovascular Details: S1, S2 present. Regular rate and rhythm, sinus rhythm on telemetry. Palpable peripheral pulses bilaterally. No edema present. No calf pain or tenderness noted. - Gastrointestinal Gastrointestinal Comment(s): Abdomen soft, nontender, nondistended. Active bowel sounds 4 quadrants. Tolerating diet. - Genitourinary Genitourinary Comment(s): Continues to void clear, yellow urine. - Integumentary Integumentary Comment(s): Skin is warm and dry with evidence of good perfusion. Left groin soft, nontender, no drainage. - Neurologic Neurologic: Present: CNII-XII intact - Musculoskeletal Musculoskeletal Comment(s): Walks with cane. Musculoskeletal: Present: gait normal, strength equal bilaterally - Psychiatric Psychiatric: Present: A&O x's 3, appropriate affect, intact judgment & insight - Allied health notes Allied health notes reviewed: nursing - Labs CBC & Chem 7: 12/10/17 05:38 12/10/17 05:38 Labs: Abnormal Lab Results - Last 24 Hours (Table) 12/09/17 12/09/17 12/09/17 Range/Units 11:09 16:14 20:34 Creatinine (0.52-1.04) mg/dL Glucose (74-99) mg/dL POC Glucose (mg/dL) 172 H 213 H 197 H (75-99) mg/dL Total Protein (6.3-8.2) g/dL 12/10/17 12/10/17 Range/Units 05:38 05:47 Creatinine 0.51 L (0.52-1.04) mg/dL Glucose 139 H (74-99) mg/dL POC Glucose (mg/dL) 143 H (75-99) mg/dL Total Protein 5.9 L (6.3-8.2) g/dL Microbiology - Last 24 Hours (Table) 12/08/17 12:00 Urine Culture - Preliminary Urine,Clean Catch Escherichia coli 12/08/17 12:00 Nasal Screen MRSA/MSSA - Final Nasal Swab Assessment and Plan (1) Coronary artery disease involving left main coronary artery Current Visit: Yes Status: Chronic Code(s): I25.10 - ATHSCL HEART DISEASE OF [place] CORONARY ARTERY W/O ANG PCTRS SNOMED Code(s): 346661150 (2) Hypertension Current Visit: Yes Status: Chronic Code(s): I10 - ESSENTIAL (PRIMARY) HYPERTENSION SNOMED Code(s): 22715466 (3) Hyperlipidemia Current Visit: Yes Status: Chronic Code(s): E78.5 - HYPERLIPIDEMIA, UNSPECIFIED SNOMED Code(s): 20595936 (4) Diabetes Current Visit: Yes Status: Chronic Code(s): E11.9 - TYPE 2 DIABETES MELLITUS WITHOUT COMPLICATIONS SNOMED Code(s): 71639473 (5) Peripheral vascular disease Current Visit: Yes Status: Chronic Code(s): I73.9 - PERIPHERAL VASCULAR DISEASE, UNSPECIFIED SNOMED Code(s): 351007212 (6) Family history of heart disease Current Visit: Yes Status: Chronic Code(s): Z82.49 - FAMILY HX OF ISCHEM HEART DIS AND OTH DIS OF THE CIRC SYS SNOMED Code(s): 583941431 (7) Tobacco dependence in remission Current Visit: No Status: Resolved Code(s): F17.201 - NICOTINE DEPENDENCE, UNSPECIFIED, IN REMISSION SNOMED Code(s): 740069644 (8) Hypothyroid Current Visit: Yes Status: Chronic Code(s): E03.9 - HYPOTHYROIDISM, UNSPECIFIED SNOMED Code(s): 67226421 (9) Syncopal episodes Current Visit: No Status: Chronic Code(s): R55 - SYNCOPE AND COLLAPSE SNOMED Code(s): 711566210 (10) History of DVT (deep vein thrombosis) Current Visit: No Status: Resolved Code(s): Z86.718 - PERSONAL HISTORY OF OTHER VENOUS THROMBOSIS AND EMBOLISM SNOMED Code(s): 489522283 (11) History of atrial fibrillation Current Visit: No Status: Resolved Code(s): Z86.79 - PERSONAL HISTORY OF OTHER DISEASES OF THE CIRCULATORY SYSTEM SNOMED Code(s): 511980045 (12) Chronic low back pain Current Visit: Yes Status: Chronic Code(s): M54.5 - LOW BACK PAIN; G89.29 - OTHER CHRONIC PAIN SNOMED Code(s): 004716752 (13) Depression Current Visit: Yes Status: Chronic Code(s): F32.9 - MAJOR DEPRESSIVE DISORDER, SINGLE EPISODE, UNSPECIFIED SNOMED Code(s): 40096262 Plan: 1. Continue aspirin, statin, beta sheree. 2. Continue preoperative teaching. 3. Encourage incentive spirometry is 10 times every hour. 4. Continue to hold cilostazol, ARB, CCB. 5. Increase activity, ambulate in the hallway. 6. Urine culture positive for E. coli. Continue Rocephin. 7. Medical management of other comorbidities per primary care service. 8. Plan is for urgent coronary artery bypass grafting 2-3 vessels with left internal mammary artery and endoscopic vein harvest, modified Cline maze and exclusion of the left atrial appendage on 12/11/2017. 9. More recommendations to follow. Time with Patient: Greater than 30
--- NOTE | 2017-12-10 10:48 | XR ---
EXAMINATION TYPE: XR chest 2V DATE OF EXAM: 12/10/2017 HISTORY: preop open heart. REFERENCE: Previous study dated 12/01/2016. FINDINGS: The study is moderately rotated. Allowing for this the lungs are clear. Pleural space are c lear. The heart is not enlarged. There is a stable calcified lesion in the middle mediastinum. This m ay represent a calcified lymph node. IMPRESSION: NO ACUTE INTRATHORACIC DISEASE.
[2017-12-10] MEDS: CYANOCOBALAMIN 500 MCG TAB PO SCH (11:01)
[2017-12-10] MEDS: ALPRAZolam 0.25 MG TAB PO PRN (11:01)
[2017-12-10 11:48] LABS: Glucose,Whole Blood 165 mg/dL (75-99)
--- NOTE | 2017-12-10 11:49 | P.PN ---
Subjective Progress Note Date: 12/10/17 Mrs. Sellers is a 72-year-old white female patient of Dr. Alcala who was undergoing cardiac evaluation for clearance for her upcoming right rotator cuff repair, was found to have inferoseptal ischemia on the nuclear stress test. Cardiac catheterization showed left main disease of 60-70%, extending into the proximal circumflex, mid LAD of 70%, and 70% ostial lesion of the left circumflex, and no significant right coronary artery disease. She was recommended surgical intervention for which she is scheduled on Monday, on 12/11. Past medical history is positive for diabetes mellitus type 2, hypertension, hyperlipidemia, hypothyroidism, peripheral vascular disease status post right fem-pop bypass, previous nicotine dependence, quit smoking 10 years ago, carries [id number] smoking history, DVT with previous Coumadin use , paroxysmal atrial fibrillation, chronic back pain, obesity and depression. Patient had a spirometry PFT in November 2016 which showed FEV1 of 109%. We are seeing this patient in consultation for pulmonary management for the upcoming coronary artery bypass grafting surgery. On today's evaluation of a 12/10/2017, the patient is free of any chest pain. The patient will be undergoing a cardiac bypass surgery in a.m. Hemodynamically stable. Using incentive spirometer. A bit anxious for tomorrow. Otherwise no other significant events overnight. Blood work shows a hemoglobin of 13.1. Renal function remains stable. Objective - Vital Signs Vital signs: Vital Signs Temp 97.7 F 12/10/17 11:31 Pulse 69 12/10/17 11:31 Resp 18 12/10/17 11:31 BP 145/81 12/10/17 11:31 Pulse Ox 94 L 12/10/17 11:31 Intake & Output 12/09/17 12/10/17 12/10/17 18:59 06:59 18:59 Intake Total 702 1225 240 Output Total 600 Balance 102 1225 240 Weight 79.2 kg Intake: IV 825 Sodium Chloride 0.9% 1, 825 000 ml @ 75 mls/hr IV . [id number] WILLIAM Rx#:[id number] Oral 702 400 240 Output: Urine 600 Other: Voiding Method Toilet # Voids 2 - Exam - Constitutional General appearance: Present: cooperative, no acute distress, obese - Respiratory Details: Lungs sounds clear bilaterally. Respirations even, nonlabored. Currently on room air with oxygen saturation 97%. Able to achieve 2032-1682 mL on her incentive spirometry. Effective cough. - Cardiovascular Details: S1, S2 present. Regular rate and rhythm, sinus rhythm on telemetry. Palpable peripheral pulses bilaterally. No edema present. No calf pain or tenderness noted. - Gastrointestinal Gastrointestinal Comment(s): Abdomen soft, nontender, nondistended. Active bowel sounds 4 quadrants. Tolerating diet. - Genitourinary Genitourinary Comment(s): Continues to void clear, yellow urine. - Integumentary Integumentary Comment(s): Skin is warm and dry with evidence of good perfusion. Left groin soft, nontender, no drainage. - Neurologic Neurologic: Present: CNII-XII intact - Musculoskeletal Musculoskeletal Comment(s): Walks with cane. Musculoskeletal: Present: gait normal, strength equal bilaterally - Psychiatric Psychiatric: Present: A&O x's 3, appropriate affect, intact judgment & insight - Labs CBC & Chem 7: 12/10/17 05:38 12/10/17 05:38 Labs: Abnormal Lab Results - Last 24 Hours (Table) 12/08/17 12/09/17 12/09/17 Range/Units 06:55 16:14 20:34 Creatinine (0.52-1.04) mg/dL Glucose (74-99) mg/dL POC Glucose (mg/dL) 213 H 197 H (75-99) mg/dL Hemoglobin A1c 8.1 H (4.0-6.0) % Total Protein (6.3-8.2) g/dL Crossmatch 12/10/17 12/10/17 12/10/17 Range/Units 05:38 05:38 05:47 Creatinine 0.51 L (0.52-1.04) mg/dL Glucose 139 H (74-99) mg/dL POC Glucose (mg/dL) 143 H (75-99) mg/dL Hemoglobin A1c (4.0-6.0) % Total Protein 5.9 L (6.3-8.2) g/dL Crossmatch See Detail Microbiology - Last 24 Hours (Table) 12/08/17 12:00 Urine Culture - Preliminary Urine,Clean Catch Escherichia coli 12/08/17 12:00 Nasal Screen MRSA/MSSA - Final Nasal Swab Assessment and Plan Plan: #1. Multivessel coronary artery disease, involving left main coronary artery. And is awaiting coronary artery bypass grafting surgery on Monday on 12/11/2017 #2. Retention #3. Hyperlipidemia #4. Diabetes mellitus 2 #5. Obesity #6. Peripheral vascular disease #7. History of nicotine dependence, currently in remission, quit 10 years ago, carries [id number] smoking history #8. Hypothyroidism #9. Paroxysmal atrial fibrillation, currently in sinus rhythm #10. Chronic low back pain #11. Depression Plan Patient's CAT scan of the chest was reviewed. There is evidence of old histoplasma or any other current over this infection of the lung as the patient is extensive mediastinal lymph node calcification. Poorly function test was noted. Proceed with surgery in a.m. Continue IV heparin. We'll continue to follow. Will be involved in the care of this patient postop, managed the ventilator and any other pulmonary issues should they arise. She is using the incentive spirometer.
[2017-12-10 16:41] LABS: Glucose,Whole Blood 178 mg/dL (75-99)
--- NOTE | 2017-12-10 17:23 | PN ---
PROGRESS NOTE DATE OF SERVICE: 12/10/2017. This 72-year-old woman who was admitted with chest pain is slated to undergo CABG tomorrow. No chest pain. No palpitations. No fever. EXAM: Alert and oriented x3. Pulse 69, blood pressure 140/81, respiration 18, temperature 97.2, pulse ox 94% on room air. HEENT: Conjunctivae normal. NECK: No jugular venous distention. CARDIOVASCULAR: S1, S2 muffled. RESPIRATORY: Breath sounds diminished in the bases. A few scattered rhonchi. No crackles. ABDOMEN: Soft, nontender. LEGS: No edema, no swelling. NERVOUS SYSTEM: No focal deficits. LABS: CBC within normal limits. Glucose 139. ASSESSMENT: 1. Coronary artery disease with LAD and circumflex stenosis, status post cardiac catheterization and CABG. 2. History of atrial fibrillation. 3. History of coronary artery disease. 4. Diabetes mellitus type 2. 5. Hypertension. 6. Hyperlipidemia. 7. History of degenerative joint disease. 8. Hypothyroidism. 9. History of possible allergic rhinitis. 10.History of nicotine dependence. 11.Anxiety, depression. 12.Urinary tract infection. RECOMMENDATIONS AND DISCUSSION I recommend to continue current management and symptomatic treatment. Otherwise, continue the rest of the medications. Closely follow with cardiology and cardiothoracic surgery. Further recommendations to follow. MMODL / IJN: [id number] /
--- NOTE | 2017-12-10 20:20 | PN ---
PROGRESS NOTE This patient underwent cardiac catheterization, and the patient was found to have significant left main disease. The patient is scheduled to undergo coronary artery bypass grafting surgery tomorrow. The patient is afebrile. Blood pressure is 112/73 mmHg. Oxygen saturation is 92%. First and 2nd heart sounds are normal. Lungs are clinically clear to auscultation and percussion. Patient's hemoglobin A1c level was 8.1, we will continue the current medications. MMODL / IJN: [id number] /
[2017-12-10 20:59] LABS: Glucose,Whole Blood 163 mg/dL (75-99)
[2017-12-10] MEDS: ATORVASTATIN 40 MG TAB PO SCH (21:02)
[2017-12-11] MEDS ORDERED: ceFAZolin 2 GM in SODIUM CHLORIDE 0.9% 30 ML IVPB ONE (05:00)
[2017-12-11] MEDS ORDERED: PHENYLEPHRINE 40 MG in SODIUM CHLORIDE 0.9% 250 ML IV ONE (05:00)
[2017-12-11] MEDS ORDERED: LACTATED RINGERS 1,000 ML IV SCH ×2 (05:00→14:08)
[2017-12-11] MEDS ORDERED: DEXTROSE 5% IN WATER 1,000 ML with POTASSIUM CHLORIDE 25 MEQ, SODIUM CHLORIDE 2.5MEQ/ML... IV SCH ×6 (05:00)
[2017-12-11] MEDS ORDERED: METOPROLOL TARTRATE 12.5 MG TAB PO ONE (05:00)
[2017-12-11] MEDS ORDERED: ALBUMIN HUMAN 25% 50 ML in EMPTY BAG 1 BAG IVPB ONE (05:00)
[2017-12-11] MEDS ORDERED: CLEVIDIPINE BUTYRATE 25 MG in EMPTY BAG 1 BAG IV ONE (05:00)
[2017-12-11] MEDS ORDERED: INSULIN REGULAR 100 UNIT in SODIUM CHLORIDE 0.9% 100 ML IV ONE (05:00)
[2017-12-11] MEDS ORDERED: CHLORHEXIDINE GLUCONATE 15 ML CUP MUCOUS MEM ONE (05:00)
[2017-12-11] MEDS ORDERED: MANNITOL 25% 12.5 GM/50 ML VIAL IV ONE ×2 (05:00)
[2017-12-11] MEDS ORDERED: ceFAZolin 1,000 MG in SODIUM CHLORIDE 0.9% IRRIGATIO 1,000 ML IRRIGATION ONE (05:00)
[2017-12-11] MEDS ORDERED: PHENYLEPHRINE-0.9% NACL SYG 1 MG/10 ML SYRINGE IV ONE ×4 (05:00)
[2017-12-11] MEDS ORDERED: PROPOFOL 1,000 MG in EMPTY BAG 1 BAG IV ONE (05:00)
[2017-12-11] MEDS ORDERED: HEPARIN SODIUM,PORCINE 5,000 UNIT in SODIUM CHLORIDE 0.9% 500 ML IV ONE (05:00)
[2017-12-11] MEDS ORDERED: ASPIRIN 325 MG TAB PO ONE (05:00)
[2017-12-11] MEDS ORDERED: TRANEXAMIC ACID 2,000 MG in SODIUM CHLORIDE 0.9% 180 ML IV ONE (05:00)
[2017-12-11] MEDS ORDERED: ALBUMIN HUMAN 5% 500 ML in EMPTY BAG 1 BAG IVPB ONE ×6 (05:00)
[2017-12-11] MEDS ORDERED: PROTAMINE SULFATE 10 MG/ML 25 ML VIAL IV ONE ×2 (05:00→08:12)
[2017-12-11] MEDS ORDERED: ATORVASTATIN 10 MG TAB PO ONE (05:00)
[2017-12-11] MEDS ORDERED: MAGNESIUM SULFATE SYG 4.06 MEQ/ML SYRINGE IV ONE (05:00)
[2017-12-11] MEDS ORDERED: DEXTROSE 5% IN WATER 1,000 ML with POTASSIUM CHLORIDE 110 MEQ, MAGNESIUM SULFATE 16 MEQ... IV SCH ×5 (05:00)
[2017-12-11] MEDS ORDERED: PAPAVERINE 360 MG in SODIUM CHLORIDE 0.9% 90 ML IV ONE (05:00)
[2017-12-11] MEDS ORDERED: HEPARIN SODIUM 1,000 UN/ML (10ML VL) IV ONE (05:00)
[2017-12-11] MEDS ORDERED: CALCIUM CHLORIDE 100 MG/ML 10 ML SYRINGE IVP ONE (05:00)
[2017-12-11] MEDS ORDERED: NOREPINEPHRINE 4 MG in DEXTROSE 5% IN WATER 250 ML IV SCH ×2 (05:00)
[2017-12-11] MEDS ORDERED: NITROGLYCERIN-D5W PMX 25 MG/250 ML BTL IV ONE (05:00)
[2017-12-11] MEDS ORDERED: NITROGLYCERIN-D5W PMX 50 MG in DEXTROSE/WATER 1 250ML.BAG IV ONE (05:00)
[2017-12-11] MEDS ORDERED: ceFAZolin 2,000 MG in SODIUM CHLORIDE 0.9% 30 ML IVPB ONE (05:00)
[2017-12-11] MEDS ORDERED: PROTAMINE SULFATE 250 MG in EMPTY BAG 1 BAG IV ONE (05:00)
[2017-12-11] MEDS ORDERED: SODIUM BICARB 8.4% 50 ML SYR (1 MEQ/ML) IV ONE (05:00)
[2017-12-11] MEDS: cefTRIAXone IN SWFI 1,000 MG/10 ML SYRINGE IVP SCH (05:14)
[2017-12-11] MEDS: INSULIN ASPART 100 UNIT/ML 1 ML 10 ML VIAL SQ SCH (05:31)
[2017-12-11 05:33] LABS: Glucose,Whole Blood 135 mg/dL (75-99)
[2017-12-11 05:48] LABS: Basophils # (A) 0.1 k/uL (0-0.2); Basophils % (A) 1 %; Eosinophils # (A) 0.4 k/uL (0-0.7); Eosinophils % (A) 3 %; HCT 42.9 % (34.0-46.0); HGB 14.4 gm/dL (11.4-16.0); Lymphocytes # (A) 2.4 k/uL (1.0-4.8); Lymphocytes % (A) 17 %; MCH 27.4 pg (25.0-35.0); MCHC 33.7 g/dL (31.0-37.0); MCV 81.2 fL (80.0-100.0); Monocytes # (A) 0.8 k/uL (0-1.0); Monocytes % (A) 5 %; Neutrophils # (A) 10.4 k/uL (1.3-7.7); Neutrophils % (A) 73 %; Platelet Count 417 k/uL (150-450); RBC 5.28 m/uL (3.80-5.40); RDW 14.9 % (11.5-15.5); WBC 14.3 k/uL (3.8-10.6)
[2017-12-11 06:05] LABS: ALT 27 U/L (9-52); AST 19 U/L (14-36); Albumin 4.1 g/dL (3.5-5.0); Alkaline Phosphatase 113 U/L (38-126); Anion Gap 9 mmol/L; Blood Urea Nitrogen 10 mg/dL (7-17); Calcium 10.1 mg/dL (8.4-10.2); Carbon Dioxide 28 mmol/L (22-30); Chloride 104 mmol/L (98-107); Glucose 135 mg/dL (74-99); Potassium 4.2 mmol/L (3.5-5.1); Prothrombin Time 9.9 sec (9.0-12.0); Sodium 141 mmol/L (137-145); Total Bilirubin 0.3 mg/dL (0.2-1.3); Total Protein 6.5 g/dL (6.3-8.2)
[2017-12-11] MEDS: LEVOTHYROXINE 75 MCG TAB PO SCH (06:23)
[2017-12-11] MEDS ORDERED: ceFAZolin 1,000 MG in SODIUM CHLORIDE 0.9% 1,000 ML IRRIGATION ONE (08:00)
[2017-12-11] MEDS ORDERED: PROPOFOL 10 MG/ML 20 ML VIAL IV ONE (08:12)
[2017-12-11] MEDS ORDERED: VECURONIUM 10 MG VIAL IV ONE (08:12)
[2017-12-11] MEDS ORDERED: PHENYLEPHRINE-0.9% NACL SYG 1 MG/10 ML SYRINGE ONE (08:12)
[2017-12-11] MEDS ORDERED: LIDOCAINE 2% SYG (PF) 100 MG/5 ML ONE (08:12)
[2017-12-11] MEDS ORDERED: fentaNYL (PF) 50 MCG/ML 50 ML VIAL ONE (08:12)
[2017-12-11] MEDS ORDERED: ceFAZolin 1,000 MG VIAL ONE (08:12)
[2017-12-11] MEDS ORDERED: TRANEXAMIC ACID 1,000 MG/10 ML VIAL ONE (08:12)
[2017-12-11] MEDS ORDERED: SODIUM CHLORIDE 0.9% 250 ML BAG ONE (08:12)
[2017-12-11] MEDS ORDERED: SUFentanil 50 MCG/ML 2ML AMP ONE (08:12)
[2017-12-11] MEDS ORDERED: ALBUMIN HUMAN 5% 500 ML VIAL IVPB ONE (08:12)
[2017-12-11] MEDS ORDERED: fentaNYL (PF) 50 MCG/ML 2 ML AMP ONE (08:12)
[2017-12-11] MEDS ORDERED: HEPARIN SODIUM,PORCINE 10,000 UNIT/ML 1 ML VIAL ONE (08:12)
[2017-12-11] MEDS ORDERED: ELECTROLYTE-R (PH 7.4) 1,000 ML IV.SOLN IV ONE (08:12)
[2017-12-11] MEDS ORDERED: MIDAZOLAM 2 MG/2 ML VIAL ONE (08:12)
[2017-12-11] MEDS ORDERED: MAGNESIUM SULFATE 4 MEQ/ML 2 ML VIAL ONE (08:12)
[2017-12-11 09:14] LABS: ABG HCO3 23 mmol/L (21-25); ABG PCO2 41 mmHg (35-45); ABG PH 7.35 (7.35-7.45); ABG PO2 149 mmHg (83-108); ABG Potassium Whole Blood 3.1 mmol/L (3.4-4.5); ABG Sodium Whole Blood 139 mmol/L (135-146); ABG TCO2 24 mmol/L (19-24)
[2017-12-11 10:20] LABS: ABG Base Excess -4.4 mmol/L; ABG HCO3 21 mmol/L (21-25); ABG PCO2 39 mmHg (35-45); ABG PH 7.34 (7.35-7.45); ABG PO2 373 mmHg (83-108); ABG Sodium Whole Blood 140 mmol/L (135-146); ABG TCO2 22 mmol/L (19-24)
[2017-12-11 11:01] LABS: ABG Base Excess 1.1 mmol/L; ABG HCO3 26 mmol/L (21-25); ABG PCO2 43 mmHg (35-45); ABG PH 7.39 (7.35-7.45); ABG Potassium Whole Blood 3.1 mmol/L (3.4-4.5); ABG Sodium Whole Blood 141 mmol/L (135-146); ABG TCO2 28 mmol/L (19-24)
[2017-12-11 11:31] LABS: ABG Base Excess 1.3 mmol/L; ABG HCO3 26 mmol/L (21-25); ABG PCO2 41 mmHg (35-45); ABG PH 7.42 (7.35-7.45); ABG PO2 297 mmHg (83-108); ABG Potassium Whole Blood 4.2 mmol/L (3.4-4.5); ABG Sodium Whole Blood 138 mmol/L (135-146); ABG TCO2 27 mmol/L (19-24)
[2017-12-11] MEDS: IPRATROPIUM-ALBUTEROL 3 ML NEB INHALATION SCH ×3 (11:40→19:33)
[2017-12-11 12:11] LABS: ABG Base Excess 0.5 mmol/L; ABG HCO3 26 mmol/L (21-25); ABG PCO2 43 mmHg (35-45); ABG PH 7.38 (7.35-7.45); ABG PO2 286 mmHg (83-108); ABG Potassium Whole Blood 4.4 mmol/L (3.4-4.5); ABG Sodium Whole Blood 136 mmol/L (135-146); ABG TCO2 27 mmol/L (19-24)
[2017-12-11] MEDS ORDERED: ALBUMIN HUMAN 5% 250 ML IVPB ONE (13:13)
[2017-12-11] MEDS: HYDROCHLOROTHIAZIDE 25 MG TAB PO SCH (14:07)
[2017-12-11] MEDS: ASPIRIN 325 MG TAB PO SCH (14:07)
[2017-12-11] MEDS: DULoxetine HCL 60 MG CAPSULE.DR PO SCH (14:07)
[2017-12-11] MEDS ORDERED: DEXTROSE 5% IN WATER 100 ML with AMIODARONE 150 MG IV PRN (14:08)
[2017-12-11] MEDS ORDERED: BENZOCAINE/MENTHOL LOZENG 1 EACH LOZENGE MUCOUS MEM PRN (14:08)
[2017-12-11] MEDS ORDERED: AMIODARONE 450 MG in DEXTROSE 5% IN WATER 250 ML IV PRN ×2 (14:08)
[2017-12-11] MEDS ORDERED: NITROGLYCERIN-D5W PMX 50 MG in DEXTROSE/WATER 1 250ML.BAG IV SCH (14:08)
[2017-12-11] MEDS ORDERED: CALCIUM CHLORIDE 1,000 MG in SODIUM CHLORIDE 0.9% 100 ML IV PRN (14:08)
[2017-12-11] MEDS ORDERED: IPRATROPIUM-ALBUTEROL 3 ML NEB INHALATION PRN (14:08)
[2017-12-11] MEDS ORDERED: Magnesium Replacement Protocol 1 EACH MISC MISCELLANE PRN (14:08)
[2017-12-11] MEDS ORDERED: METOCLOPRAMIDE 5 MG/ML 2 ML VIAL IVP PRN (14:08)
[2017-12-11] MEDS ORDERED: Potassium Replacement Protocol 1 EACH MISC MISCELLANE PRN (14:08)
[2017-12-11] MEDS ORDERED: Phosphorus Replacement Protoco 1 EACH MISC MISCELLANE PRN (14:08)
[2017-12-11] MEDS ORDERED: ALBUMIN HUMAN 5% 250 ML in EMPTY BAG 1 BAG IVPB PRN (14:08)
[2017-12-11] MEDS ORDERED: PROPOFOL 1,000 MG in EMPTY BAG 1 BAG IV SCH (14:08)
[2017-12-11] MEDS ORDERED: MORPHINE SULFATE 2 MG/ML SYRINGE IVP PRN (14:08)
[2017-12-11] MEDS: LORATADINE 10 MG TAB PO SCH (14:20)
[2017-12-11] MEDS: oxyCODONE ER 15 MG TAB.ER.12H PO SCH (14:20)
[2017-12-11] MEDS: CYANOCOBALAMIN 500 MCG TAB PO SCH (14:20)
[2017-12-11 14:21] LABS: ABG Potassium Whole Blood 2.7 mmol/L (3.4-4.5)
[2017-12-11 14:22] LABS: ABG PO2 >420 mmHg (83-108)
[2017-12-11 14:34] LABS: Glucose,Whole Blood 118 mg/dL (75-99)
[2017-12-11 14:39] LABS: Basophils # (A) 0.1 k/uL (0-0.2); Basophils % (A) 0 %; Eosinophils # (A) 0.2 k/uL (0-0.7); Eosinophils % (A) 1 %; HCT 28.7 % (34.0-46.0); Lymphocytes # (A) 1.6 k/uL (1.0-4.8); Lymphocytes % (A) 8 %; MCH 27.4 pg (25.0-35.0); MCHC 33.3 g/dL (31.0-37.0); Mean Platelet Volume 7.8; Monocytes # (A) 0.8 k/uL (0-1.0); Monocytes % (A) 4 %; Neutrophils # (A) 17.1 k/uL (1.3-7.7); Neutrophils % (A) 86 %; Platelet Count 229 k/uL (150-450); RDW 14.9 % (11.5-15.5); WBC 19.8 k/uL (3.8-10.6)
[2017-12-11 14:46] LABS: HGB 9.6 gm/dL (11.4-16.0); INR 1.1 (<1.2); Partial Thromboplastin Time 26.2 sec (22.0-30.0)
[2017-12-11 14:49] LABS: Ionized Calcium 4.8 mg/dL (4.5-5.3)
--- NOTE | 2017-12-11 14:56 | XR ---
EXAMINATION TYPE: XR chest 1V portable DATE OF EXAM: 12/11/2017 COMPARISON: 12/11/2018 HISTORY: Line and tube placement. Status post cardiac surgery. TECHNIQUE: Single frontal view of the chest is obtained. FINDINGS: York-Zahraa catheter is seen with its distal tip in the pulmonary region of the pulmonary ou tflow tract. Endotracheal tube terminates at the level of the aortic arch approximately 1.6 cm from t he al. Enteric tube courses below the hemidiaphragm and is coiled in the region of the gastric sai dy. Left-sided thoracostomy tube is present with no residual pneumothorax identified. Multifocal line ar atelectasis is seen with right minor fissural fluid and obscuration of the left hemidiaphragm, als o likely related to a component of atelectasis and pleural effusion. Extensive degenerative changes o f the shoulders are present. Granulomatous changes of the hilum or also seen. IMPRESSION: 1. Appropriately placed lines and tubes. Multifocal atelectasis and suspicion for small left pleural effusion.
[2017-12-11 14:59] LABS: Glucose,Whole Blood 147 mg/dL (75-99)
[2017-12-11 14:59] LABS: ALT 104 U/L (9-52); AST 204 U/L (14-36); Albumin 2.6 g/dL (3.5-5.0); Alkaline Phosphatase 95 U/L (38-126); Anion Gap 4 mmol/L; Blood Urea Nitrogen 11 mg/dL (7-17); Calcium 7.7 mg/dL (8.4-10.2); Carbon Dioxide 28 mmol/L (22-30); Chloride 108 mmol/L (98-107); Glucose 129 mg/dL (74-99); Magnesium 2.8 mg/dL (1.6-2.3); Potassium 4.1 mmol/L (3.5-5.1); Sodium 140 mmol/L (137-145); Total Bilirubin 0.5 mg/dL (0.2-1.3); Total Protein 4.1 g/dL (6.3-8.2)
[2017-12-11] MEDS: CLEVIDIPINE BUTYRATE 25 MG in EMPTY BAG 1 BAG IV SCH ×4 (15:05→23:52)
[2017-12-11] MEDS: INSULIN REGULAR 100 UNIT in SODIUM CHLORIDE 0.9% 100 ML IV SCH (15:15)
[2017-12-11 15:45] LABS: ABG HCO3 26 mmol/L (21-25); ABG PCO2 50 mmHg (35-45); ABG PH 7.34 (7.35-7.45); ABG PO2 163 mmHg (83-108)
[2017-12-11 15:46] LABS: ABG Base Excess 1.3 mmol/L
[2017-12-11] MEDS ORDERED: IPRATROPIUM-ALBUTEROL 3 ML NEB INHALATION SCH (16:00)
--- NOTE | 2017-12-11 16:08 | P.PN ---
Subjective Progress Note Date: 12/11/17 Principal diagnosis: Multi-vessel coronary artery disease, status post coronary artery bypass grafting, CHARLES to LAD, SVG to OM1, SVG to OM 3 with left lower extremity endoscopic vein harvest, and modified Cline maze procedure and exclusion of left atrial appendage Mrs. Slelers is a 72-year-old white female patient of Dr. Alcala who was undergoing cardiac evaluation for clearance for her upcoming right rotator cuff repair, was found to have inferoseptal ischemia on the nuclear stress test. Cardiac catheterization showed left main disease of 60-70%, extending into the proximal circumflex, mid LAD of 70%, and 70% ostial lesion of the left circumflex, and no significant right coronary artery disease. She was recommended surgical intervention for which she is scheduled on Monday, on 12/11. Past medical history is positive for diabetes mellitus type 2, hypertension, hyperlipidemia, hypothyroidism, peripheral vascular disease status post right fem-pop bypass, previous nicotine dependence, quit smoking 10 years ago, carries [id number] smoking history, DVT with previous Coumadin use , paroxysmal atrial fibrillation, chronic back pain, obesity and depression. Patient had a spirometry PFT in November 2016 which showed FEV1 of 109%. We are seeing this patient in consultation for pulmonary management for the upcoming coronary artery bypass grafting surgery. On today's evaluation of a 12/10/2017, the patient is free of any chest pain. The patient will be undergoing a cardiac bypass surgery in a.m. Hemodynamically stable. Using incentive spirometer. A bit anxious for tomorrow. Otherwise no other significant events overnight. Blood work shows a hemoglobin of 13.1. Renal function remains stable. On 12/11/2017 patient seen in follow-up in the intensive care unit, following coronary artery bypass grafting, with CHARLES to LAD, SVG to OM1, and SVG to OM 3, with left leg endoscopic vein harvesting, modified Cline-Maze procedure, and exclusion of the left atrial appendage. She is sedated, on mechanical ventilator, he is currently on SIMV mode of ventilation, with a rate of 12, tidal volume of 400, FiO2 of 100%, and PEEP of 8. Spontaneous breaths volumes were noted to be low and patient was asynchronous with the vent. Patient was placed on assist-control mode of ventilation with a rate of 12, tidal vital 400 , FiO2 100% and PEEP of 8. Patient Postoperative blood gases showed pO2 163, pCO2 50, and pH of 7.34. FiO2 was decreased to 80%. Patient is currently on maintenance IV fluids of Lactated Ringer's at a rate of 50 ML per hour, Nitroglycerin drip is at 5 micg/min, propofol is currently at 20 mcg/kg/min. blood pressure is 117/67, BP pressures at 24/13, cardiac output and cardiac index are 5.2 and 2.9. Intraoperatively patient received 2.5 L of IV fluids, 500 mL of 5% albumin, and 300 mL of Cell Saver. Patient has mediastinal and left pleural chest tubes with small amount of sanguinous output. Medial sternotomy incision is clean dry and intact, covered with surgical dressing, chest tube sites are clean dry and intact. Left leg incision site covered with an Lavell wrap, SCDs are on. patient has atrioventricular wires in place, currently at AAO mode with atrial rate of 80 BPM. Postop blood work showed a CBC of 19.8, hemoglobin of 9.6, 140, potassium is 4.1, chloride is 108, BUN of 11, creatinine 0.41, AST of 204, ALT of 104, alkaline phosphatase is 95. Objective - Vital Signs Vital signs: Vital Signs Temp 96.7 F L 12/11/17 06:09 Pulse 72 12/11/17 06:09 Resp 18 12/11/17 06:09 BP 132/72 12/11/17 06:09 Pulse Ox 99 12/11/17 06:09 Intake & Output 12/10/17 12/11/17 12/11/17 18:59 06:59 18:59 Intake Total 600 50 3 Output Total 900 1700 Balance -300 50 -1697 Intake: IV 3 Oral 600 50 Output: Urine 900 500 Estimated Blood Loss 1200 Other: Voiding Method Toilet # Voids 2 - Exam GENERAL EXAM: 72-year-old white female, sedated, intubated on mechanical ventilator HEAD: Normocephalic/atraumatic. EYES: Normal reaction of pupils, equal size. Conjunctiva pink, sclera white. NOSE: Clear with pink turbinates. THROAT: No erythema or exudates. NECK: No masses, no JVD, no thyroid enlargement, no adenopathy. CHEST: No chest wall deformity. Symmetrical expansion. right IJ Cordis and PA catheter in the right IJ. medial sternotomy incisions clean dry and intact, covered with surgical dressing, mediastinal and left pleural chest tubes with sanguinous output in the Pleura Vacs, to continuous wall suction, at 20 cm of water LUNGS: Equal air entry with no crackles, wheeze, rhonchi or dullness. CVS: Regular rate and rhythm, normal S1 and S2, no gallops, no murmurs, no rubs. She is being paced via AV wires, AAO mode, with a rate of 80 ABDOMEN: Soft, nontender. No hepatosplenomegaly, normal bowel sounds, no guarding or rigidity. EXTREMITIES: No clubbing, no edema, no cyanosis, 2+ pulses and upper and lower extremities. Left leg incisions are covered with Lavell wrap's, SCDs are in, MUSCULOSKELETAL: Muscle strength and tone normal. SPINE: No scoliosis or deformity SKIN: No rashes CENTRAL NERVOUS SYSTEM: Unable to assess, sedated. No focal deficits PSYCHIATRIC: unable to assess - Labs CBC & Chem 7: 12/11/17 14:08 12/11/17 14:08 Labs: Abnormal Lab Results - Last 24 Hours (Table) 12/10/17 12/10/17 12/10/17 Range/Units 05:38 16:36 20:58 WBC (3.8-10.6) k/uL Neutrophils # (1.3-7.7) k/uL ABG pH (7.35-7.45) ABG pO2 (83-108) mmHg ABG HCO3 (21-25) mmol/L ABG Total CO2 (19-24) mmol/L ABG O2 Saturation (94-97) % ABG Hematocrit (34.0-46.0) % ABG Potassium (3.4-4.5) mmol/L ABG Ionized Calcium (4.5-5.3) mg/dL ABG Glucose (75-99) mg/dL ABG Lactic Acid (0.5-1.6) mmol/L Hemoglobin (11.4-16.0) gm/dL Creatinine (0.52-1.04) mg/dL Glucose (74-99) mg/dL POC Glucose (mg/dL) 178 H 163 H (75-99) mg/dL Arterial Blood Potassium (3.4-4.5) mmol/L Arterial Blood Glucose (75-99) mg/dL Crossmatch See Detail 12/11/17 12/11/17 12/11/17 Range/Units 05:27 05:27 05:30 WBC 14.3 H (3.8-10.6) k/uL Neutrophils # 10.4 H (1.3-7.7) k/uL ABG pH (7.35-7.45) ABG pO2 (83-108) mmHg ABG HCO3 (21-25) mmol/L ABG Total CO2 (19-24) mmol/L ABG O2 Saturation (94-97) % ABG Hematocrit (34.0-46.0) % ABG Potassium (3.4-4.5) mmol/L ABG Ionized Calcium (4.5-5.3) mg/dL ABG Glucose (75-99) mg/dL ABG Lactic Acid (0.5-1.6) mmol/L Hemoglobin (11.4-16.0) gm/dL Creatinine 0.50 L (0.52-1.04) mg/dL Glucose 135 H (74-99) mg/dL POC Glucose (mg/dL) 135 H (75-99) mg/dL Arterial Blood Potassium (3.4-4.5) mmol/L Arterial Blood Glucose (75-99) mg/dL Crossmatch 12/11/17 12/11/17 12/11/17 Range/Units 09:16 10:22 11:03 WBC (3.8-10.6) k/uL Neutrophils # (1.3-7.7) k/uL ABG pH 7.34 L (7.35-7.45) ABG pO2 149 H 373 H >420 H (83-108) mmHg ABG HCO3 26 H (21-25) mmol/L ABG Total CO2 28 H (19-24) mmol/L ABG O2 Saturation 99.0 H 100.0 H 100.0 H (94-97) % ABG Hematocrit 28 L 24 L (34.0-46.0) % ABG Potassium 3.1 L 2.7 L* 3.1 L (3.4-4.5) mmol/L ABG Ionized Calcium 4.1 L (4.5-5.3) mg/dL ABG Glucose 221 H 153 H 115 H (75-99) mg/dL ABG Lactic Acid 2.3 H* 2.2 H* 2.4 H* (0.5-1.6) mmol/L Hemoglobin 9.1 L 7.7 L (11.4-16.0) gm/dL Creatinine (0.52-1.04) mg/dL Glucose (74-99) mg/dL POC Glucose (mg/dL) (75-99) mg/dL Arterial Blood Potassium 3.1 L 2.7 L* 3.1 L (3.4-4.5) mmol/L Arterial Blood Glucose 221 H 153 H 115 H (75-99) mg/dL Crossmatch 12/11/17 12/11/17 Range/Units 11:33 12:13 WBC (3.8-10.6) k/uL Neutrophils # (1.3-7.7) k/uL ABG pH (7.35-7.45) ABG pO2 297 H 286 H (83-108) mmHg ABG HCO3 26 H 26 H (21-25) mmol/L ABG Total CO2 27 H 27 H (19-24) mmol/L ABG O2 Saturation 100.0 H 100.0 H (94-97) % ABG Hematocrit 21 L 20 L* (34.0-46.0) % ABG Potassium (3.4-4.5) mmol/L ABG Ionized Calcium 4.2 L 4.2 L (4.5-5.3) mg/dL ABG Glucose 196 H 204 H (75-99) mg/dL ABG Lactic Acid 2.1 H 2.0 H (0.5-1.6) mmol/L Hemoglobin 6.8 L* 6.4 L* (11.4-16.0) gm/dL Creatinine (0.52-1.04) mg/dL Glucose (74-99) mg/dL POC Glucose (mg/dL) (75-99) mg/dL Arterial Blood Potassium (3.4-4.5) mmol/L Arterial Blood Glucose 196 H 204 H (75-99) mg/dL Crossmatch Microbiology - Last 24 Hours (Table) 12/08/17 12:00 Urine Culture - Final Urine,Clean Catch Escherichia coli Assessment and Plan Plan: Assessment: #1. Multivessel coronary artery disease, involving left main coronary artery, status post coronary artery bypass grafting, with CHARLES to LAD and the diagonal, SVG to OM1, SVG to OM 3, with left leg endoscopic vein harvesting, modified Cline Maze procedure, and exclusion of left atrial appendage, postop day 0 #2. Routine postoperative ventilator management #3. Preop E. coli urinary tract infection, covered with Rocephin, and the organism is sensitive to it #4. Hypertension #5. Hyperlipidemia #6. Diabetes mellitus 2 #7. Obesity #8. Peripheral vascular disease #9. History of nicotine dependence, currently in remission, quit 10 years ago, carries [id number] smoking history #10. Hypothyroidism #11. Paroxysmal atrial fibrillation, currently in sinus rhythm #12. Chronic low back pain #13. Depression Plan: Postop blood gas, and chest x-ray has been reviewed, ET tube is in the appropriate position, as well as the PA catheter, and the OG tube, patient was placed on assist control mode of ventilation the rate of 12, tidal volume 400, FiO2 80%, and PEEP of 8. Continue weaning FiO2 per protocol. Continue close hemodynamic monitoring, continue monitoring chest tube output, urine output, labs, heart rate and rhythm. Chest tubes are relatively dry. We'll proceed with spontaneous breathing trials once the patient is awake, will proceed with extubation. Incentive spirometry to the bedside postextubation. Daily chest x- rays, daily labs. Continue with nebulized bronchodilators every 4 hours and as needed. I performed a history & physical examination of the patient and discussed their management with my nurse practitioner, Cassandra Gaona. I reviewed the nurse practitioner's note and agree with the documented findings and plan of care. Lung sounds are clear. The findings and the impression was discussed with the patient. I attest to the documentation by the nurse practitioner. Time with Patient: Greater than 30
[2017-12-11] MEDS: ceFAZolin IN SWFI 2 GM/20 ML SYRINGE IVP SCH (16:27)
[2017-12-11 16:31] LABS: Glucose,Whole Blood 177 mg/dL (75-99)
[2017-12-11 17:01] LABS: Glucose,Whole Blood 185 mg/dL (75-99)
[2017-12-11 17:15] LABS: HCT 34.5 % (34.0-46.0); HGB 11.6 gm/dL (11.4-16.0); MCH 27.3 pg (25.0-35.0); MCHC 33.6 g/dL (31.0-37.0); MCV 81.2 fL (80.0-100.0); Mean Platelet Volume 7.1; Platelet Count 330 k/uL (150-450); RBC 4.25 m/uL (3.80-5.40); RDW 14.9 % (11.5-15.5)
[2017-12-11 17:18] LABS: WBC 26.1 k/uL (3.8-10.6)
[2017-12-11] MEDS: ACETAMINOPHEN IV (For NPO) 1,000 MG in EMPTY BAG 1 BAG IVPB SCH ×2 (17:34→23:22)
[2017-12-11 17:48] LABS: ABG Base Excess 0.2 mmol/L; ABG HCO3 25 mmol/L (21-25); ABG PCO2 43 mmHg (35-45); ABG PH 7.38 (7.35-7.45); ABG PO2 89 mmHg (83-108)
[2017-12-11 17:55] LABS: Glucose,Whole Blood 182 mg/dL (75-99)
[2017-12-11 18:07] LABS: Band Neutrophils % 7 %; Lymphocytes # (M) 1.57 k/uL (1.0-4.8); Metamyelocytes # (M) 0.26 k/uL (0); Metamyelocytes % 1 %; Monocytes # (M) 1.31 k/uL (0-1.0); Myelocytes # (M) 0.26 k/uL (0); Myelocytes % 1 %; Neutrophils % (M) 82 %; Nucleated Red Blood Cells 0 /100 WBC (0-0); Total Cells Counted 200
[2017-12-11 19:07] LABS: Glucose,Whole Blood 180 mg/dL (75-99)
[2017-12-11 20:09] LABS: Glucose,Whole Blood 150 mg/dL (75-99)
[2017-12-11 20:18] LABS: Basophils % (A) 0 %; Eosinophils % (A) 0 %; HCT 34.5 % (34.0-46.0); HGB 11.9 gm/dL (11.4-16.0); Lymphocytes # (A) 0.9 k/uL (1.0-4.8); Lymphocytes % (A) 4 %; MCH 27.6 pg (25.0-35.0); MCHC 34.4 g/dL (31.0-37.0); MCV 80.3 fL (80.0-100.0); Mean Platelet Volume 7.6; Monocytes # (A) 0.8 k/uL (0-1.0); Monocytes % (A) 4 %; Neutrophils # (A) 20.9 k/uL (1.3-7.7); Neutrophils % (A) 92 %; Platelet Count 293 k/uL (150-450); RDW 14.9 % (11.5-15.5); WBC 22.7 k/uL (3.8-10.6)
--- NOTE | 2017-12-11 20:27 | OP ---
OPERATIVE REPORT DATE OF SURGERY: 12/11/2017. SURGEON: Dr. Yanelis Olvera. ASSISTANTS: 1. Jorge Sandoval, Physician Scrum Master. 2. VIANCA Obregon. PREOPERATIVE DIAGNOSES: 1. Left main coronary artery disease. 2. Preserved left ventricular function. 3. Obesity. 4. Diabetes. 5. Hyperlipidemia. 6. Hypertension. 7. Paroxysmal atrial fibrillation. 8. Chest granulomatous disease. POSTOPERATIVE DIAGNOSES: 1. Left main coronary artery disease. 2. Preserved left ventricular function. 3. Obesity. 4. Diabetes. 5. Hyperlipidemia. 6. Hypertension. 7. Paroxysmal atrial fibrillation. 8. Chest granulomatous disease. PROCEDURE: 1. Quadruple coronary artery bypass grafting using the left internal mammary artery sequentially to the diagonal artery and to the left anterior descending artery, reverse saphenous vein graft from the aorta to the first obtuse marginal artery, reverse saphenous vein graft from the aorta to the third obtuse marginal artery. 2. Bilateral pulmonary vein isolation using the AtriCure radiofrequency clamp. 3. Exclusion of the left atrial appendage using a 35 mm AtriClip. 4. Intraoperative transesophageal echocardiogram and epiaortic scanning. INDICATION FOR SURGERY: The patient is a 72-year-old lady who had a positive stress test as a prelude for orthopedic surgery. Cardiac catheterization followed, and that showed significant distal left main disease and ostial circumflex disease. Her right coronary artery was overall without flow-limiting lesions. Her left ventricular function is preserved. She was kept in the hospital, prepared for surgery, and is being taken today for coronary artery bypass grafting. She also has had documented paroxysmal atrial fibrillation in the past and has not been on oral anticoagulant. We will be performing bilateral pulmonary vein isolation and excluding her left atrial appendage. The STS risk was discussed with her and her family. They understood it and agreed to proceed. DESCRIPTION OF THE PROCEDURE: With the patient in supine position, a right internal jugular [place]-Zahraa catheter and a right radial arterial line were placed. Subsequently she was brought to the operating room, where her cardiac index was 2.9, her PA pressure was 22/10. Subsequently general endotracheal anesthesia was induced uneventfully. Almaguer catheter was inserted. The chest, abdomen and both lower extremities were prepped and draped using ChloraPrep. Ioban was used to cover the skin. The patient had received 2 grams of cefazolin intravenously preoperatively. To mention that she was on Rocephin for 2 days for a documented E coli urinary tract infection. Transesophageal echocardiogram confirmed the preoperative finding of preserved systolic function and no significant valvular abnormality. The left atrial appendage was free of clots. Midline sternotomy was performed, as the bone was thin, a bit osteoporotic. No bone wax was used. The left pleura was opened and the left internal mammary artery was harvested in a somewhat skeletonized fashion. A 28-Jamaican chest tube was used to drain the left pleura. I made a small opening in the right pleura intentionally at the end of the case to decompress potential right pneumothorax, and no chest tube was placed. The patient was given 5000 units of heparin before clipping the left internal mammary artery distally and transecting it. It had an excellent pulsatile flow in it and was around 1.75 mm in diameter. In the same setting, the left greater saphenous vein was harvested endoscopically from groin to above ankle level. The branches were tied. The leg incisions were closed over a drain. The vein appeared to be of excellent quality, around 4 mm in diameter. Mediastinal fat was transected with cautery and epiaortic scanning revealed no protruding atheroma in the ascending aorta, but some wall disease. The pericardium was opened in an inverted T-fashion and a pericardial cradle was created. Findings included a normal soft aorta and a normal-sized heart. The left anterior descending artery was intramyocardial for the most part. After systemic heparinization and after placement of respective pledgeted pursestrings, aortic cannulation with a 21-Jamaican Soft-Flow cannula, venous cannulation with a dual- stage cannula via the right atrial appendage was done. Antegrade as well as retrograde cardioplegia catheters were placed. Cardiopulmonary bypass was initiated, and with the heart empty we looked at the target and it appeared that the LAD which was intramyocardial emerged in a very limited fashion in its distal aspect before the apical part would be bypassable, although small. The diagonal artery was a much bigger target. The first obtuse marginal artery and the third obtuse marginal artery would be the site for bypass. We focused at this point with the heart empty and beating at performing the bilateral pulmonary vein isolation. The right pulmonary veins were encircled and an AtriCure clamp was applied to the antrum of the veins and 3 ablations using again the AtriCure bipolar radiofrequency clamp were performed. The left-sided pulmonary veins were exposed after incising the ligament of Rohan with the Bovie. They were also encircled and a radiofrequency AtriCure clamp was applied 3 times at that level. We finished by excluding the left atrial appendage using a 35 mm AtriClip. Aorta was clamped, and during aortic clamping myocardial protection was achieved with an initial dose of 700 mL of antegrade cold blood cardioplegia, with adequate arrest at 200 mL followed by 400 mL of retrograde cold blood cardioplegia. All subsequent doses were given retrograde at 15-minute intervals. The first distal anastomosis was between a segment of reverse saphenous vein graft of good quality and a 1.25 mm thin-walled third obtuse marginal artery which was opened. We inserted a 1 mm shunt in it to better define the edges, and the anastomosis was completed using Prolene 7-0 in continuous fashion. There was excellent flow into the vein. The vein was cut to length and suspended. The second distal anastomosis was between another segment of reverse saphenous vein graft of good quality and the 1.75 mm first obtuse marginal artery, which was an excellent target, using Prolene 7-0 in continuous fashion. The vein was cut to length and suspended. The third distal anastomosis was between the left internal mammary artery and the diagonal artery in a [id number] fashion. The diagonal artery was opened. It was around 1.75 mm in diameter and the anastomosis was completed using Prolene 7-0 in continuous fashion. The fourth and last distal anastomosis was between the end of the left internal mammary artery and the side of the left anterior descending artery in its mid to distal aspect. The left anterior descending artery was thin-walled and small, around 1.2 mm at that level, and I inserted a 1 mm shunt to better define the edges. The anastomosis was completed using Prolene 7-0 in a continuous fashion after removing the shunt. The mammary pedicle was affixed to the epicardium with a Prolene 6 0 suture. Satisfied with the distal anastomosis, rewarming was started as we punched out 2 buttons of 5 mm each of the ascending aorta, and the 2 proximal anastomoses of the vein graft were completed using Prolene 6-0 in a continuous fashion. The patient was given lidocaine and magnesium and de-airing maneuvers were performed before unclamping the aorta. The veins were de-aired before establishing flow in them. A groove was made in the left pleural pericardial fat to accommodate the mammary artery medial to the lung and away from the posterior sternal table. Two monopolar atrial pacing wires were affixed to the respective pursestrings of the right atrium. One bipolar ventricular pacing wire was driven via the inferior aspect of the right ventricle. AV pacing was initiated and the patient was in junctional rhythm and slow. After a period of reperfusion, we were able to wean off cardiopulmonary bypass guided by DEYSI without the need of any inotropic or vasopressor support. Test-dose and full-dose protamine was given. Decannulation followed. After ensuring adequate hemostasis and hemodynamics and after correct sponge, instrument and needle counts, the pericardial fat was approximated over the aorta and the heart and subsequently the sternum was closed after insertion of a 32-Jamaican substernal chest tube using 5 [id number] pineal cables after interposing Fibrillar between the sternal edges. Thorough irrigation with cefazolin followed. The rest of the closure proceeded in layers. Skin glue was applied. The patient did not receive any blood bank products but received 300 mL of Cell Saver blood. She was transferred to the ICU in excellent hemodynamic condition and atrially paced at 80 with evidence of first-degree AV block and a cardiac index of 2.3 and P pressure of 22/8 and a mean arterial pressure of 72. MMODL / IJN: [id number] /
[2017-12-11 20:36] LABS: ALT 134 U/L (9-52); AST 221 U/L (14-36); Albumin 3.5 g/dL (3.5-5.0); Alkaline Phosphatase 138 U/L (38-126); Anion Gap 7 mmol/L; Blood Urea Nitrogen 8 mg/dL (7-17); Carbon Dioxide 28 mmol/L (22-30); Chloride 103 mmol/L (98-107); Glucose 150 mg/dL (74-99); Potassium 3.1 mmol/L (3.5-5.1); Sodium 138 mmol/L (137-145); Total Bilirubin 0.6 mg/dL (0.2-1.3); Total Protein 5.3 g/dL (6.3-8.2)
[2017-12-11 21:01] LABS: Glucose,Whole Blood 139 mg/dL (75-99)
[2017-12-11] MEDS: MUPIROCIN 2% OINT 22 GM TUBE NASAL SCH (21:02)
[2017-12-11] MEDS: HEPARIN SODIUM,PORCINE 5,000 UNIT/ML 1 ML VIAL SQ SCH (21:02)
[2017-12-11] MEDS: POTASSIUM CHLORIDE 20 MEQ in WATER FOR INJECTION 1 100ML.BAG IVPB SCH ×2 (21:14→23:19)
[2017-12-11 22:05] LABS: Glucose,Whole Blood 125 mg/dL (75-99)
[2017-12-11 23:17] LABS: Glucose,Whole Blood 115 mg/dL (75-99)
[2017-12-11] MEDS: ONDANSETRON 4 MG/2 ML VIAL IVP PRN (23:19)
[2017-12-12 00:06] LABS: Glucose,Whole Blood 148 mg/dL (75-99)
[2017-12-12 01:07] LABS: Glucose,Whole Blood 135 mg/dL (75-99)
[2017-12-12] MEDS: ceFAZolin IN SWFI 2 GM/20 ML SYRINGE IVP SCH ×2 (01:28→09:01)
[2017-12-12] MEDS: HEPARIN SODIUM,PORCINE 5,000 UNIT/ML 1 ML VIAL SQ SCH ×4 (01:29→23:50)
[2017-12-12 02:06] LABS: Glucose,Whole Blood 126 mg/dL (75-99)
[2017-12-12 03:06] LABS: Glucose,Whole Blood 111 mg/dL (75-99)
[2017-12-12] MEDS: CLEVIDIPINE BUTYRATE 25 MG in EMPTY BAG 1 BAG IV SCH ×2 (03:59→08:58)
[2017-12-12 04:04] LABS: Glucose,Whole Blood 148 mg/dL (75-99)
[2017-12-12 04:29] LABS: Basophils # (A) 0.1 k/uL (0-0.2); Basophils % (A) 0 %; Eosinophils % (A) 0 %; HGB 11.8 gm/dL (11.4-16.0); Lymphocytes # (A) 1.3 k/uL (1.0-4.8); Lymphocytes % (A) 5 %; MCH 27.3 pg (25.0-35.0); MCHC 33.6 g/dL (31.0-37.0); MCV 81.2 fL (80.0-100.0); Mean Platelet Volume 6.9; Monocytes # (A) 1.2 k/uL (0-1.0); Monocytes % (A) 5 %; Neutrophils # (A) 21.4 k/uL (1.3-7.7); Neutrophils % (A) 89 %; Platelet Count 277 k/uL (150-450); RBC 4.31 m/uL (3.80-5.40); RDW 14.9 % (11.5-15.5); WBC 24.1 k/uL (3.8-10.6)
[2017-12-12 04:33] LABS: Ionized Calcium 4.9 mg/dL (4.5-5.3)
[2017-12-12 04:37] LABS: Partial Thromboplastin Time 22.5 sec (22.0-30.0); Prothrombin Time 10.1 sec (9.0-12.0)
[2017-12-12 04:40] LABS: ALT 111 U/L (9-52); AST 125 U/L (14-36); Albumin 3.4 g/dL (3.5-5.0); Alkaline Phosphatase 139 U/L (38-126); Anion Gap 8 mmol/L; Blood Urea Nitrogen 7 mg/dL (7-17); Calcium 8.9 mg/dL (8.4-10.2); Carbon Dioxide 24 mmol/L (22-30); Chloride 101 mmol/L (98-107); Glucose 143 mg/dL (74-99); Potassium 3.5 mmol/L (3.5-5.1); Sodium 133 mmol/L (137-145); Total Bilirubin 0.4 mg/dL (0.2-1.3); Total Protein 5.2 g/dL (6.3-8.2)
[2017-12-12 05:00] LABS: Glucose,Whole Blood 139 mg/dL (75-99)
--- NOTE | 2017-12-12 05:21 | PN ---
PROGRESS NOTE DATE OF SERVICE: 12/11/2017 This 72-year-old woman who was admitted with chest pain, coronary artery disease underwent CABG x3. The patient is extubated. Patient is closely monitored. Blood sugars are elevated. Patient is on IV insulin drip. No chest pain or palpitation. PHYSICAL EXAMINATION: On exam, pulse 76, blood pressure 139/69, respirations 16, temp is normal, pulse ox 100% on 3 L. HEENT: Conjunctivae normal. Oral mucosa moist. Neck is no jugular venous distention. No carotid bruit. No lymph node enlargement. CARDIOVASCULAR: S1 and S2 muffled. RESPIRATORY: Breath sounds diminished at the bases. A few scattered rhonchi. ABDOMEN: Soft. NERVOUS SYSTEM: No focal deficits. LABS: Labs are WBC 22.7, otherwise, hemoglobin 11.9. Glucose noted. AST is 221 and ALT is 134. ASSESSMENT: 1. Coronary artery disease, status post coronary artery bypass grafting. 2. Atrial fibrillation. 3. History of coronary artery disease. 4. Diabetes mellitus type 2. 5. Increased LFTs. 6. Hypertension. 7. Hyperlipidemia. 8. History of degenerative joint disease. 9. Hypothyroidism. 10.History of possible allergic rhinitis. 11.History of nicotine dependence. 12.Anxiety, depression. 13.Urinary tract infection with Escherichia coli, present on admission. RECOMMENDATIONS AND DISCUSSION: This 72-year-old woman presented with multiple complex medical issues. Will monitor the patient closely. Continue the current medications. Continue symptomatic treatment. Otherwise at this time I recommend closely follow with Pulmonary. Monitor blood sugars closely with insulin drip. Repeat labs. Closely follow with Dr. Griffin. Further recommendations to follow. MMODL / IJN: [id number] /
[2017-12-12 06:02] LABS: Glucose,Whole Blood 130 mg/dL (75-99)
[2017-12-12] MEDS: POTASSIUM CHLORIDE 20 MEQ in WATER FOR INJECTION 1 100ML.BAG IVPB SCH ×2 (06:18→08:34)
[2017-12-12] MEDS: ACETAMINOPHEN IV (For NPO) 1,000 MG in EMPTY BAG 1 BAG IVPB SCH ×3 (06:18→18:24)
[2017-12-12] MEDS: LEVOTHYROXINE 75 MCG TAB PO SCH (06:30)
[2017-12-12 07:09] LABS: Glucose,Whole Blood 135 mg/dL (75-99)
[2017-12-12] MEDS: INSULIN REGULAR 100 UNIT in SODIUM CHLORIDE 0.9% 100 ML IV SCH (07:53)
[2017-12-12] MEDS: KETOROLAC 30 MG/ML 1 ML VIAL IVP SCH ×4 (07:54→20:30)
[2017-12-12] MEDS: IPRATROPIUM-ALBUTEROL 3 ML NEB INHALATION SCH ×4 (08:08→20:02)
[2017-12-12 08:28] LABS: Glucose,Whole Blood 118 mg/dL (75-99)
[2017-12-12] MEDS: oxyCODONE ER 15 MG TAB.ER.12H PO SCH ×3 (08:31→21:45)
[2017-12-12] MEDS: ALPRAZolam 0.25 MG TAB PO PRN (08:32)
[2017-12-12] MEDS: DULoxetine HCL 60 MG CAPSULE.DR PO SCH (08:39)
[2017-12-12] MEDS: CLOPIDOGREL 75 MG TAB PO SCH (08:39)
[2017-12-12] MEDS: LORATADINE 10 MG TAB PO SCH (08:39)
[2017-12-12] MEDS: ASPIRIN 325 MG TAB PO SCH (08:39)
[2017-12-12] MEDS: ATORVASTATIN 40 MG TAB PO SCH (08:39)
[2017-12-12] MEDS: MUPIROCIN 2% OINT 22 GM TUBE NASAL SCH ×2 (08:40→20:30)
[2017-12-12] MEDS ORDERED: FUROSEMIDE 10 MG/ML 2 ML VIAL IV ONE ×2 (08:41→18:00)
--- NOTE | 2017-12-12 08:45 | XR ---
EXAMINATION TYPE: XR chest 1V portable DATE OF EXAM: 12/12/2017 COMPARISON: December 11, 2017 HISTORY: SOB, Follow Up FINDINGS: Interval removal of endotracheal and NG tubes. Remaining Indwelling tubes and catheters are unchanged . No evidence for sizable pneumothorax. No change in bibasilar opacities. Stable appearance of the cardio-mediastinal structures at this time. No sizable pleural effusion noted. IMPRESSION: 1. Stable portable chest. Clinical correlation and follow up until resolution is recommended.
[2017-12-12] MEDS ORDERED: PANTOPRAZOLE 40 MG/10 ML VIAL IVP SCH (09:00)
[2017-12-12] MEDS: AMIODARONE 200 MG TAB PO SCH ×2 (09:14→20:30)
[2017-12-12] MEDS: METOPROLOL TARTRATE 12.5 MG TAB PO SCH ×2 (09:15→20:30)
--- NOTE | 2017-12-12 09:17 | P.PN ---
Subjective Progress Note Date: 12/12/17 Principal diagnosis: Multi-vessel coronary artery disease, status post coronary artery bypass grafting, CHARLES to LAD, SVG to OM1, SVG to OM 3 with left lower extremity endoscopic vein harvest, and modified Cline maze procedure and exclusion of left atrial appendage Mrs. Sellers is a 72-year-old white female patient of Dr. Alcala who was undergoing cardiac evaluation for clearance for her upcoming right rotator cuff repair, was found to have inferoseptal ischemia on the nuclear stress test. Cardiac catheterization showed left main disease of 60-70%, extending into the proximal circumflex, mid LAD of 70%, and 70% ostial lesion of the left circumflex, and no significant right coronary artery disease. She was recommended surgical intervention for which she is scheduled on Monday, on 12/11. Past medical history is positive for diabetes mellitus type 2, hypertension, hyperlipidemia, hypothyroidism, peripheral vascular disease status post right fem-pop bypass, previous nicotine dependence, quit smoking 10 years ago, carries [id number] smoking history, DVT with previous Coumadin use , paroxysmal atrial fibrillation, chronic back pain, obesity and depression. Patient had a spirometry PFT in November 2016 which showed FEV1 of 109%. We are seeing this patient in consultation for pulmonary management for the upcoming coronary artery bypass grafting surgery. On today's evaluation of a 12/10/2017, the patient is free of any chest pain. The patient will be undergoing a cardiac bypass surgery in a.m. Hemodynamically stable. Using incentive spirometer. A bit anxious for tomorrow. Otherwise no other significant events overnight. Blood work shows a hemoglobin of 13.1. Renal function remains stable. On 12/11/2017 patient seen in follow-up in the intensive care unit, following coronary artery bypass grafting, with CHARLES to LAD, SVG to OM1, and SVG to OM 3, with left leg endoscopic vein harvesting, modified Cline-Maze procedure, and exclusion of the left atrial appendage. She is sedated, on mechanical ventilator, he is currently on SIMV mode of ventilation, with a rate of 12, tidal volume of 400, FiO2 of 100%, and PEEP of 8. Spontaneous breaths volumes were noted to be low and patient was asynchronous with the vent. Patient was placed on assist-control mode of ventilation with a rate of 12, tidal vital 400 , FiO2 100% and PEEP of 8. Patient Postoperative blood gases showed pO2 163, pCO2 50, and pH of 7.34. FiO2 was decreased to 80%. Patient is currently on maintenance IV fluids of Lactated Ringer's at a rate of 50 ML per hour, Nitroglycerin drip is at 5 micg/min, propofol is currently at 20 mcg/kg/min. blood pressure is 117/67, BP pressures at 24/13, cardiac output and cardiac index are 5.2 and 2.9. Intraoperatively patient received 2.5 L of IV fluids, 500 mL of 5% albumin, and 300 mL of Cell Saver. Patient has mediastinal and left pleural chest tubes with small amount of sanguinous output. Medial sternotomy incision is clean dry and intact, covered with surgical dressing, chest tube sites are clean dry and intact. Left leg incision site covered with an Lavell wrap, SCDs are on. patient has atrioventricular wires in place, currently at AAO mode with atrial rate of 80 BPM. Postop blood work showed a CBC of 19.8, hemoglobin of 9.6, 140, potassium is 4.1, chloride is 108, BUN of 11, creatinine 0.41, AST of 204, ALT of 104, alkaline phosphatase is 95. On 12/12/2017 patient seen in follow-up in the intensive care unit. She was extubated at 1820 on 12/11/2017, little over 4 hours post OR exit time. His morning she seen sitting up in the reclining chair, awake alert, is complaining of moderate to severe amount of back pain. Currently on 2 L per nasal cannula, pulse ox is 97%, she is afebrile, vital signs are stable. Sinus rhythm on monitor, with a rate of 83 bpm. Epicardial wires to external pacemaker with a backup rate. Lung sounds are positive for a few bibasilar crackles, her incentive spirometry effort is 1500 mL today. IV drips are 0.9 at a rate of 40 ML per hour, clevidipine at 8 mg per hour, and insulin at 4 units per hour. Today's chest x-ray was reviewed and shows stable bibasilar opacities related to atelectasis., no sizable pleural effusion. No pneumothorax. Midsternal incision is clean dry and intact, chest tube sites are clean dry and intact. There is serosanguineous output from the mediastinal and left pleural chest tubes. Today's blood work shows WBC is trending up, up to 24.1, hemoglobin is 11.8, sodium is 133, potassium is 3.5, BUN is 7, creatinine is 0.30. LFTs are trending down, AST is down to 125, and ALT is 111, alkaline phosphatase is 139. PA pressures [place] over 6, cardiac output and index is 4.0 at 2.4. Objective - Vital Signs Vital signs: Vital Signs Temp 96.7 F L 12/11/17 06:09 Pulse 90 12/12/17 08:30 Resp 17 12/12/17 07:00 BP 132/72 12/11/17 06:09 Pulse Ox 97 12/12/17 07:00 Intake & Output 12/11/17 12/12/17 12/12/17 18:59 06:59 18:59 Intake Total 601.824 7089.702 107.151 Output Total 3470 3125 80 Balance -2998.500 -1882.298 27.151 Weight 79.2 kg Intake: IV 422 1048 59 ACETAMINOPHEN IV (For NPO 100 100 ) 1,000 mg In Empty Bag 1 bag @ 400 mls/hr IVPB Q6HR [facility] Rx#:[id number] Calcium Chloride 1,000 mg 100 In Sodium Chloride 0.9% 100 ml @ 100 mls/hr IV ONCE PRN Rx#:[id number] Cardiac Output 10 40 Lactated Ringers 1,000 ml 200 600 50 @ 50 mls/hr IV .Q20H [facility] Rx#:[id number] Potassium Chloride 20 meq 200 In Water For Injection 1 100ml.bag @ 50 mls/hr IVPB Q2H [facility] Rx#: [id number] Pressure Bags 9 108 9 Intake, IV Titration 49.500 194.702 48.151 Amount Clevidipine Butyrate 25 40.334 138.900 39.6 mg In Empty Bag 1 bag @ 1 MG/HR 2 mls/hr IV .Q24H [facility] Rx#:[id number] Insulin Regular 100 unit 7.716 55.802 8.551 In Sodium Chloride 0.9% 100 ml @ Per Protocol IV .Q0M [facility] Rx#:[id number] Nitroglycerin-D5w Pmx 50 1.45 mg In Dextrose/Water 1 250ml.bag @ 5 MCG/MIN 1.5 mls/hr IV .Q24H [facility] Rx#: [id number] Output: Chest Tube Drainage 175 225 Chest Tube Mediastinal 118 210 Left Pleural 57 15 Drainage 10 Left Lower Leg MASTER 10 Urine 2095 2890 80 Estimated Blood Loss 1200 Other: Voiding Method Indwelling Catheter Indwelling Catheter ABP, PAP, CO, CI - Last Documented Arterial Blood Pressure 106/66 Pulmonary Artery Pressure 15/6 Cardiac Output 4.5 Cardiac Index 2.5 - Exam GENERAL EXAM: 72-year-old white female, awake and alert, sitting up in the reclining chair, in moderate amount of pain but no acute distress. HEAD: Normocephalic/atraumatic. EYES: Normal reaction of pupils, equal size. Conjunctiva pink, sclera white. NOSE: Clear with pink turbinates. THROAT: No erythema or exudates. NECK: No masses, no JVD, no thyroid enlargement, no adenopathy. CHEST: No chest wall deformity. Symmetrical expansion. right IJ Cordis and PA catheter in the right IJ. medial sternotomy incisions clean dry and intact, covered with surgical dressing, mediastinal and left pleural chest tubes with sanguinous output in the Pleura Vacs, to continuous wall suction, at 20 cm of water LUNGS: Equal air entry with no crackles, wheeze, rhonchi or dullness. CVS: Regular rate and rhythm, normal S1 and S2, no gallops, no murmurs, no rubs. Patient is in sinus rhythm with a rate of 83 bpm, and AV wires to external pacemaker with backup rate. ABDOMEN: Soft, nontender. No hepatosplenomegaly, normal bowel sounds, no guarding or rigidity. EXTREMITIES: No clubbing, no edema, no cyanosis, 2+ pulses and upper and lower extremities. Left leg incisions are covered with Lavell wrap's, SCDs are in, MUSCULOSKELETAL: Muscle strength and tone normal. SPINE: No scoliosis or deformity SKIN: No rashes CENTRAL NERVOUS SYSTEM: No focal deficits PSYCHIATRIC: Intact judgment and insight - Labs CBC & Chem 7: 12/12/17 04:00 12/12/17 04:00 Labs: Abnormal Lab Results - Last 24 Hours (Table) 12/10/17 12/11/17 12/11/17 Range/Units 05:38 09:16 10:22 WBC (3.8-10.6) k/uL RBC (3.80-5.40) m/uL Hgb (11.4-16.0) gm/dL Hct (34.0-46.0) % Neutrophils # (1.3-7.7) k/uL Neutrophils # (Manual) (1.3-7.7) k/uL Lymphocytes # (1.0-4.8) k/uL Monocytes # (0-1.0) k/uL Monocytes # (Manual) (0-1.0) k/uL Metamyelocytes # (Man) (0) k/uL Myelocytes # (Manual) (0) k/uL ABG pH 7.34 L (7.35-7.45) ABG pCO2 (35-45) mmHg ABG pO2 149 H 373 H (83-108) mmHg ABG HCO3 (21-25) mmol/L ABG Total CO2 (19-24) mmol/L ABG O2 Saturation 99.0 H 100.0 H (94-97) % ABG Hematocrit 28 L (34.0-46.0) % ABG Potassium 3.1 L 2.7 L* (3.4-4.5) mmol/L ABG Ionized Calcium (4.5-5.3) mg/dL ABG Glucose 221 H 153 H (75-99) mg/dL ABG Lactic Acid 2.3 H* 2.2 H* (0.5-1.6) mmol/L Hemoglobin 9.1 L (11.4-16.0) gm/dL Sodium (137-145) mmol/L Potassium (3.5-5.1) mmol/L Chloride (98-107) mmol/L Creatinine (0.52-1.04) mg/dL Glucose (74-99) mg/dL POC Glucose (mg/dL) (75-99) mg/dL Calcium (8.4-10.2) mg/dL Magnesium (1.6-2.3) mg/dL AST (14-36) U/L ALT (9-52) U/L Alkaline Phosphatase (38-126) U/L Total Protein (6.3-8.2) g/dL Albumin (3.5-5.0) g/dL Arterial Blood Potassium 3.1 L 2.7 L* (3.4-4.5) mmol/L Arterial Blood Glucose 221 H 153 H (75-99) mg/dL Crossmatch See Detail 12/11/17 12/11/17 12/11/17 Range/Units 11:03 11:33 12:13 WBC (3.8-10.6) k/uL RBC (3.80-5.40) m/uL Hgb (11.4-16.0) gm/dL Hct (34.0-46.0) % Neutrophils # (1.3-7.7) k/uL Neutrophils # (Manual) (1.3-7.7) k/uL Lymphocytes # (1.0-4.8) k/uL Monocytes # (0-1.0) k/uL Monocytes # (Manual) (0-1.0) k/uL Metamyelocytes # (Man) (0) k/uL Myelocytes # (Manual) (0) k/uL ABG pH (7.35-7.45) ABG pCO2 (35-45) mmHg ABG pO2 >420 H 297 H 286 H (83-108) mmHg ABG HCO3 26 H 26 H 26 H (21-25) mmol/L ABG Total CO2 28 H 27 H 27 H (19-24) mmol/L ABG O2 Saturation 100.0 H 100.0 H 100.0 H (94-97) % ABG Hematocrit 24 L 21 L 20 L* (34.0-46.0) % ABG Potassium 3.1 L (3.4-4.5) mmol/L ABG Ionized Calcium 4.1 L 4.2 L 4.2 L (4.5-5.3) mg/dL ABG Glucose 115 H 196 H 204 H (75-99) mg/dL ABG Lactic Acid 2.4 H* 2.1 H 2.0 H (0.5-1.6) mmol/L Hemoglobin 7.7 L 6.8 L* 6.4 L* (11.4-16.0) gm/dL Sodium (137-145) mmol/L Potassium (3.5-5.1) mmol/L Chloride (98-107) mmol/L Creatinine (0.52-1.04) mg/dL Glucose (74-99) mg/dL POC Glucose (mg/dL) (75-99) mg/dL Calcium (8.4-10.2) mg/dL Magnesium (1.6-2.3) mg/dL AST (14-36) U/L ALT (9-52) U/L Alkaline Phosphatase (38-126) U/L Total Protein (6.3-8.2) g/dL Albumin (3.5-5.0) g/dL Arterial Blood Potassium 3.1 L (3.4-4.5) mmol/L Arterial Blood Glucose 115 H 196 H 204 H (75-99) mg/dL Crossmatch 12/11/17 12/11/17 12/11/17 Range/Units 14:08 14:08 14:32 WBC 19.8 H (3.8-10.6) k/uL RBC 3.50 L (3.80-5.40) m/uL Hgb 9.6 L D (11.4-16.0) gm/dL Hct 28.7 L (34.0-46.0) % Neutrophils # 17.1 H (1.3-7.7) k/uL Neutrophils # (Manual) (1.3-7.7) k/uL Lymphocytes # (1.0-4.8) k/uL Monocytes # (0-1.0) k/uL Monocytes # (Manual) (0-1.0) k/uL Metamyelocytes # (Man) (0) k/uL Myelocytes # (Manual) (0) k/uL ABG pH (7.35-7.45) ABG pCO2 (35-45) mmHg ABG pO2 (83-108) mmHg ABG HCO3 (21-25) mmol/L ABG Total CO2 (19-24) mmol/L ABG O2 Saturation (94-97) % ABG Hematocrit (34.0-46.0) % ABG Potassium (3.4-4.5) mmol/L ABG Ionized Calcium (4.5-5.3) mg/dL ABG Glucose (75-99) mg/dL ABG Lactic Acid (0.5-1.6) mmol/L Hemoglobin (11.4-16.0) gm/dL Sodium (137-145) mmol/L Potassium (3.5-5.1) mmol/L Chloride 108 H (98-107) mmol/L Creatinine 0.41 L (0.52-1.04) mg/dL Glucose 129 H (74-99) mg/dL POC Glucose (mg/dL) 118 H (75-99) mg/dL Calcium 7.7 L (8.4-10.2) mg/dL Magnesium 2.8 H (1.6-2.3) mg/dL AST 204 H (14-36) U/L ALT 104 H (9-52) U/L Alkaline Phosphatase (38-126) U/L Total Protein 4.1 L (6.3-8.2) g/dL Albumin 2.6 L (3.5-5.0) g/dL Arterial Blood Potassium (3.4-4.5) mmol/L Arterial Blood Glucose (75-99) mg/dL Crossmatch 12/11/17 12/11/17 12/11/17 Range/Units 14:58 15:40 16:23 WBC (3.8-10.6) k/uL RBC (3.80-5.40) m/uL Hgb (11.4-16.0) gm/dL Hct (34.0-46.0) % Neutrophils # (1.3-7.7) k/uL Neutrophils # (Manual) (1.3-7.7) k/uL Lymphocytes # (1.0-4.8) k/uL Monocytes # (0-1.0) k/uL Monocytes # (Manual) (0-1.0) k/uL Metamyelocytes # (Man) (0) k/uL Myelocytes # (Manual) (0) k/uL ABG pH 7.34 L (7.35-7.45) ABG pCO2 50 H (35-45) mmHg ABG pO2 163 H (83-108) mmHg ABG HCO3 26 H (21-25) mmol/L ABG Total CO2 (19-24) mmol/L ABG O2 Saturation (94-97) % ABG Hematocrit (34.0-46.0) % ABG Potassium (3.4-4.5) mmol/L ABG Ionized Calcium (4.5-5.3) mg/dL ABG Glucose (75-99) mg/dL ABG Lactic Acid (0.5-1.6) mmol/L Hemoglobin (11.4-16.0) gm/dL Sodium (137-145) mmol/L Potassium (3.5-5.1) mmol/L Chloride (98-107) mmol/L Creatinine (0.52-1.04) mg/dL Glucose (74-99) mg/dL POC Glucose (mg/dL) 147 H 177 H (75-99) mg/dL Calcium (8.4-10.2) mg/dL Magnesium (1.6-2.3) mg/dL AST (14-36) U/L ALT (9-52) U/L Alkaline Phosphatase (38-126) U/L Total Protein (6.3-8.2) g/dL Albumin (3.5-5.0) g/dL Arterial Blood Potassium (3.4-4.5) mmol/L Arterial Blood Glucose (75-99) mg/dL Crossmatch 12/11/17 12/11/17 12/11/17 Range/Units 16:55 17:00 17:53 WBC 26.1 H* (3.8-10.6) k/uL RBC (3.80-5.40) m/uL Hgb (11.4-16.0) gm/dL Hct (34.0-46.0) % Neutrophils # (1.3-7.7) k/uL Neutrophils # (Manual) 23.20 H (1.3-7.7) k/uL Lymphocytes # (1.0-4.8) k/uL Monocytes # (0-1.0) k/uL Monocytes # (Manual) 1.31 H (0-1.0) k/uL Metamyelocytes # (Man) 0.26 H (0) k/uL Myelocytes # (Manual) 0.26 H (0) k/uL ABG pH (7.35-7.45) ABG pCO2 (35-45) mmHg ABG pO2 (83-108) mmHg ABG HCO3 (21-25) mmol/L ABG Total CO2 (19-24) mmol/L ABG O2 Saturation (94-97) % ABG Hematocrit (34.0-46.0) % ABG Potassium (3.4-4.5) mmol/L ABG Ionized Calcium (4.5-5.3) mg/dL ABG Glucose (75-99) mg/dL ABG Lactic Acid (0.5-1.6) mmol/L Hemoglobin (11.4-16.0) gm/dL Sodium (137-145) mmol/L Potassium (3.5-5.1) mmol/L Chloride (98-107) mmol/L Creatinine (0.52-1.04) mg/dL Glucose (74-99) mg/dL POC Glucose (mg/dL) 185 H 182 H (75-99) mg/dL Calcium (8.4-10.2) mg/dL Magnesium (1.6-2.3) mg/dL AST (14-36) U/L ALT (9-52) U/L Alkaline Phosphatase (38-126) U/L Total Protein (6.3-8.2) g/dL Albumin (3.5-5.0) g/dL Arterial Blood Potassium (3.4-4.5) mmol/L Arterial Blood Glucose (75-99) mg/dL Crossmatch 12/11/17 12/11/17 12/11/17 Range/Units 19:06 20:07 20:10 WBC (3.8-10.6) k/uL RBC (3.80-5.40) m/uL Hgb (11.4-16.0) gm/dL Hct (34.0-46.0) % Neutrophils # (1.3-7.7) k/uL Neutrophils # (Manual) (1.3-7.7) k/uL Lymphocytes # (1.0-4.8) k/uL Monocytes # (0-1.0) k/uL Monocytes # (Manual) (0-1.0) k/uL Metamyelocytes # (Man) (0) k/uL Myelocytes # (Manual) (0) k/uL ABG pH (7.35-7.45) ABG pCO2 (35-45) mmHg ABG pO2 (83-108) mmHg ABG HCO3 (21-25) mmol/L ABG Total CO2 (19-24) mmol/L ABG O2 Saturation (94-97) % ABG Hematocrit (34.0-46.0) % ABG Potassium (3.4-4.5) mmol/L ABG Ionized Calcium (4.5-5.3) mg/dL ABG Glucose (75-99) mg/dL ABG Lactic Acid (0.5-1.6) mmol/L Hemoglobin (11.4-16.0) gm/dL Sodium (137-145) mmol/L Potassium 3.1 L (3.5-5.1) mmol/L Chloride (98-107) mmol/L Creatinine 0.30 L (0.52-1.04) mg/dL Glucose 150 H (74-99) mg/dL POC Glucose (mg/dL) 180 H 150 H (75-99) mg/dL Calcium (8.4-10.2) mg/dL Magnesium (1.6-2.3) mg/dL AST 221 H (14-36) U/L ALT 134 H (9-52) U/L Alkaline Phosphatase 138 H (38-126) U/L Total Protein 5.3 L (6.3-8.2) g/dL Albumin (3.5-5.0) g/dL Arterial Blood Potassium (3.4-4.5) mmol/L Arterial Blood Glucose (75-99) mg/dL Crossmatch 12/11/17 12/11/17 12/11/17 Range/Units 20:10 21:00 22:04 WBC 22.7 H (3.8-10.6) k/uL RBC (3.80-5.40) m/uL Hgb (11.4-16.0) gm/dL Hct (34.0-46.0) % Neutrophils # 20.9 H (1.3-7.7) k/uL Neutrophils # (Manual) (1.3-7.7) k/uL Lymphocytes # 0.9 L (1.0-4.8) k/uL Monocytes # (0-1.0) k/uL Monocytes # (Manual) (0-1.0) k/uL Metamyelocytes # (Man) (0) k/uL Myelocytes # (Manual) (0) k/uL ABG pH (7.35-7.45) ABG pCO2 (35-45) mmHg ABG pO2 (83-108) mmHg ABG HCO3 (21-25) mmol/L ABG Total CO2 (19-24) mmol/L ABG O2 Saturation (94-97) % ABG Hematocrit (34.0-46.0) % ABG Potassium (3.4-4.5) mmol/L ABG Ionized Calcium (4.5-5.3) mg/dL ABG Glucose (75-99) mg/dL ABG Lactic Acid (0.5-1.6) mmol/L Hemoglobin (11.4-16.0) gm/dL Sodium (137-145) mmol/L Potassium (3.5-5.1) mmol/L Chloride (98-107) mmol/L Creatinine (0.52-1.04) mg/dL Glucose (74-99) mg/dL POC Glucose (mg/dL) 139 H 125 H (75-99) mg/dL Calcium (8.4-10.2) mg/dL Magnesium (1.6-2.3) mg/dL AST (14-36) U/L ALT (9-52) U/L Alkaline Phosphatase (38-126) U/L Total Protein (6.3-8.2) g/dL Albumin (3.5-5.0) g/dL Arterial Blood Potassium (3.4-4.5) mmol/L Arterial Blood Glucose (75-99) mg/dL Crossmatch 12/11/17 12/12/17 12/12/17 Range/Units 23:14 00:04 01:05 WBC (3.8-10.6) k/uL RBC (3.80-5.40) m/uL Hgb (11.4-16.0) gm/dL Hct (34.0-46.0) % Neutrophils # (1.3-7.7) k/uL Neutrophils # (Manual) (1.3-7.7) k/uL Lymphocytes # (1.0-4.8) k/uL Monocytes # (0-1.0) k/uL Monocytes # (Manual) (0-1.0) k/uL Metamyelocytes # (Man) (0) k/uL Myelocytes # (Manual) (0) k/uL ABG pH (7.35-7.45) ABG pCO2 (35-45) mmHg ABG pO2 (83-108) mmHg ABG HCO3 (21-25) mmol/L ABG Total CO2 (19-24) mmol/L ABG O2 Saturation (94-97) % ABG Hematocrit (34.0-46.0) % ABG Potassium (3.4-4.5) mmol/L ABG Ionized Calcium (4.5-5.3) mg/dL ABG Glucose (75-99) mg/dL ABG Lactic Acid (0.5-1.6) mmol/L Hemoglobin (11.4-16.0) gm/dL Sodium (137-145) mmol/L Potassium (3.5-5.1) mmol/L Chloride (98-107) mmol/L Creatinine (0.52-1.04) mg/dL Glucose (74-99) mg/dL POC Glucose (mg/dL) 115 H 148 H 135 H (75-99) mg/dL Calcium (8.4-10.2) mg/dL Magnesium (1.6-2.3) mg/dL AST (14-36) U/L ALT (9-52) U/L Alkaline Phosphatase (38-126) U/L Total Protein (6.3-8.2) g/dL Albumin (3.5-5.0) g/dL Arterial Blood Potassium (3.4-4.5) mmol/L Arterial Blood Glucose (75-99) mg/dL Crossmatch 12/12/17 12/12/17 12/12/17 Range/Units 02:05 03:05 04:00 WBC 24.1 H (3.8-10.6) k/uL RBC (3.80-5.40) m/uL Hgb (11.4-16.0) gm/dL Hct (34.0-46.0) % Neutrophils # 21.4 H (1.3-7.7) k/uL Neutrophils # (Manual) (1.3-7.7) k/uL Lymphocytes # (1.0-4.8) k/uL Monocytes # 1.2 H (0-1.0) k/uL Monocytes # (Manual) (0-1.0) k/uL Metamyelocytes # (Man) (0) k/uL Myelocytes # (Manual) (0) k/uL ABG pH (7.35-7.45) ABG pCO2 (35-45) mmHg ABG pO2 (83-108) mmHg ABG HCO3 (21-25) mmol/L ABG Total CO2 (19-24) mmol/L ABG O2 Saturation (94-97) % ABG Hematocrit (34.0-46.0) % ABG Potassium (3.4-4.5) mmol/L ABG Ionized Calcium (4.5-5.3) mg/dL ABG Glucose (75-99) mg/dL ABG Lactic Acid (0.5-1.6) mmol/L Hemoglobin (11.4-16.0) gm/dL Sodium (137-145) mmol/L Potassium (3.5-5.1) mmol/L Chloride (98-107) mmol/L Creatinine (0.52-1.04) mg/dL Glucose (74-99) mg/dL POC Glucose (mg/dL) 126 H 111 H (75-99) mg/dL Calcium (8.4-10.2) mg/dL Magnesium (1.6-2.3) mg/dL AST (14-36) U/L ALT (9-52) U/L Alkaline Phosphatase (38-126) U/L Total Protein (6.3-8.2) g/dL Albumin (3.5-5.0) g/dL Arterial Blood Potassium (3.4-4.5) mmol/L Arterial Blood Glucose (75-99) mg/dL Crossmatch 12/12/17 12/12/17 12/12/17 Range/Units 04:00 04:03 04:59 WBC (3.8-10.6) k/uL RBC (3.80-5.40) m/uL Hgb (11.4-16.0) gm/dL Hct (34.0-46.0) % Neutrophils # (1.3-7.7) k/uL Neutrophils # (Manual) (1.3-7.7) k/uL Lymphocytes # (1.0-4.8) k/uL Monocytes # (0-1.0) k/uL Monocytes # (Manual) (0-1.0) k/uL Metamyelocytes # (Man) (0) k/uL Myelocytes # (Manual) (0) k/uL ABG pH (7.35-7.45) ABG pCO2 (35-45) mmHg ABG pO2 (83-108) mmHg ABG HCO3 (21-25) mmol/L ABG Total CO2 (19-24) mmol/L ABG O2 Saturation (94-97) % ABG Hematocrit (34.0-46.0) % ABG Potassium (3.4-4.5) mmol/L ABG Ionized Calcium (4.5-5.3) mg/dL ABG Glucose (75-99) mg/dL ABG Lactic Acid (0.5-1.6) mmol/L Hemoglobin (11.4-16.0) gm/dL Sodium 133 L (137-145) mmol/L Potassium (3.5-5.1) mmol/L Chloride (98-107) mmol/L Creatinine 0.30 L (0.52-1.04) mg/dL Glucose 143 H (74-99) mg/dL POC Glucose (mg/dL) 148 H 139 H (75-99) mg/dL Calcium (8.4-10.2) mg/dL Magnesium (1.6-2.3) mg/dL AST 125 H (14-36) U/L ALT 111 H (9-52) U/L Alkaline Phosphatase 139 H (38-126) U/L Total Protein 5.2 L (6.3-8.2) g/dL Albumin 3.4 L (3.5-5.0) g/dL Arterial Blood Potassium (3.4-4.5) mmol/L Arterial Blood Glucose (75-99) mg/dL Crossmatch 12/12/17 12/12/17 12/12/17 Range/Units 06:00 07:07 08:25 WBC (3.8-10.6) k/uL RBC (3.80-5.40) m/uL Hgb (11.4-16.0) gm/dL Hct (34.0-46.0) % Neutrophils # (1.3-7.7) k/uL Neutrophils # (Manual) (1.3-7.7) k/uL Lymphocytes # (1.0-4.8) k/uL Monocytes # (0-1.0) k/uL Monocytes # (Manual) (0-1.0) k/uL Metamyelocytes # (Man) (0) k/uL Myelocytes # (Manual) (0) k/uL ABG pH (7.35-7.45) ABG pCO2 (35-45) mmHg ABG pO2 (83-108) mmHg ABG HCO3 (21-25) mmol/L ABG Total CO2 (19-24) mmol/L ABG O2 Saturation (94-97) % ABG Hematocrit (34.0-46.0) % ABG Potassium (3.4-4.5) mmol/L ABG Ionized Calcium (4.5-5.3) mg/dL ABG Glucose (75-99) mg/dL ABG Lactic Acid (0.5-1.6) mmol/L Hemoglobin (11.4-16.0) gm/dL Sodium (137-145) mmol/L Potassium (3.5-5.1) mmol/L Chloride (98-107) mmol/L Creatinine (0.52-1.04) mg/dL Glucose (74-99) mg/dL POC Glucose (mg/dL) 130 H 135 H 118 H (75-99) mg/dL Calcium (8.4-10.2) mg/dL Magnesium (1.6-2.3) mg/dL AST (14-36) U/L ALT (9-52) U/L Alkaline Phosphatase (38-126) U/L Total Protein (6.3-8.2) g/dL Albumin (3.5-5.0) g/dL Arterial Blood Potassium (3.4-4.5) mmol/L Arterial Blood Glucose (75-99) mg/dL Crossmatch Microbiology - Last 24 Hours (Table) 12/08/17 12:00 Urine Culture - Final Urine,Clean Catch Escherichia coli Assessment and Plan Plan: Assessment: #1. Multivessel coronary artery disease, involving left main coronary artery, status post coronary artery bypass grafting, with CHARLES to LAD and the diagonal, SVG to OM1, SVG to OM 3, with left leg endoscopic vein harvesting, modified Cline Maze procedure, and exclusion of left atrial appendage, postop day 1 #2. Routine postoperative ventilator management, patient was extubated at 4 hours post OR exit time, and tolerating expiration quite well. #3. Preop E. coli urinary tract infection, covered with Rocephin, and the organism is sensitive to it #4. Hypertension #5. Hyperlipidemia #6. Diabetes mellitus 2 #7. Obesity #8. Peripheral vascular disease #9. History of nicotine dependence, currently in remission, quit 10 years ago, carries [id number] smoking history #10. Hypothyroidism #11. Paroxysmal atrial fibrillation, currently in sinus rhythm #12. Chronic low back pain #13. Depression Plan: Today's chest x-ray has been reviewed, shows atelectatic changes at bilateral bases, pleural effusions, no pneumothorax. Patient is doing well, other than having moderate to severe amount of back pain. Maintain pain control, encourage incentive spirometry use, pulmonary toileting, ambulation. LFTs are trending down, renal profile stable, has been increase in the white count, clinically patient remains afebrile. No chills. Patient remains on Rocephin for evidence of E. coli urinary tract infection that was discovered preop. We' ll continue monitoring her dynamics, cardiac rate and rhythm, urine output, chest tube output, labs, daily chest x-rays. I performed a history & physical examination of the patient and discussed their management with my nurse practitioner, Cassandra Gaona. I reviewed the nurse practitioner's note and agree with the documented findings and plan of care. Lung sounds are positive for bibasilar crackles. The findings and the impression was discussed with the patient. I attest to the documentation by the nurse practitioner. Time with Patient: Greater than 30
--- NOTE | 2017-12-12 09:19 | P.PN ---
Subjective Progress Note Date: 12/12/17 Principal diagnosis: Coronary artery disease with critical left main disease. Preserved left ventricular function. Previous medical history of hypertension, hyperlipidemia , diabetes mellitus with preoperative hemoglobin A1c 8.1%, hypothyroid, chest granulomatous disease, peripheral vascular disease status post right fem-pop bypass, previous tobacco dependence with FEV1 109% of predicted in November 2016, recent fall in June 2017 with torn right rotator cuff, questionable DVT with previous Coumadin use greater than 2 years ago, syncopal episodes, paroxysmal atrial fibrillation, chronic low back pain, obesity, and depression. Preoperative E. coli urinary tract infection. POD #1 urgent quadruple coronary artery bypass grafting using the left internal mammary sequentially to the diagonal artery and to the left anterior descending artery, reverse saphenous vein graft from the aorta to the first obtuse marginal , reverse saphenous vein graft from the aorta to the third obtuse marginal artery. Bilateral pulmonary vein isolation using the AtriCure radiofrequency clamp. Exclusion of the left atrial appendage using a 35 mm AtriClip. Intraoperative transesophageal echocardiogram and epi-aortic scanning. Postoperative elevation in transaminases, an unexpected outcome, resolving. Patient's currently sitting up in the recliner in no acute distress. Complains of postsurgical chest discomfort, but more so complains of chronic lower back and knee pain. Patient was successfully extubated last night and 18:23. She is hemodynamically stable on no inotropes or pressors. Objective - Vital Signs Vital signs: Vital Signs Temp 96.7 F L 12/11/17 06:09 Pulse 90 12/12/17 08:30 Resp 17 12/12/17 07:00 BP 132/72 12/11/17 06:09 Pulse Ox 97 12/12/17 07:00 Intake & Output 12/11/17 12/12/17 12/12/17 18:59 06:59 18:59 Intake Total 168.255 1334.702 107.151 Output Total 3470 3125 80 Balance -2998.500 -1882.298 27.151 Weight 79.2 kg Intake: IV 422 1048 59 ACETAMINOPHEN IV (For NPO 100 100 ) 1,000 mg In Empty Bag 1 bag @ 400 mls/hr IVPB Q6HR WILLIAM Rx#:[id number] Calcium Chloride 1,000 mg 100 In Sodium Chloride 0.9% 100 ml @ 100 mls/hr IV ONCE PRN Rx#:[id number] Cardiac Output 10 40 Lactated Ringers 1,000 ml 200 600 50 @ 50 mls/hr IV .Q20H WILLIAM Rx#:[id number] Potassium Chloride 20 meq 200 In Water For Injection 1 100ml.bag @ 50 mls/hr IVPB Q2H WILLIAM Rx#: [id number] Pressure Bags 9 108 9 Intake, IV Titration 49.500 194.702 48.151 Amount Clevidipine Butyrate 25 40.334 138.900 39.6 mg In Empty Bag 1 bag @ 1 MG/HR 2 mls/hr IV .Q24H WILLIAM Rx#:[id number] Insulin Regular 100 unit 7.716 55.802 8.551 In Sodium Chloride 0.9% 100 ml @ Per Protocol IV .Q0M WILLIAM Rx#:[id number] Nitroglycerin-D5w Pmx 50 1.45 mg In Dextrose/Water 1 250ml.bag @ 5 MCG/MIN 1.5 mls/hr IV .Q24H WILLIAM Rx#: [id number] Output: Chest Tube Drainage 175 225 Chest Tube Mediastinal 118 210 Left Pleural 57 15 Drainage 10 Left Lower Leg MASTER 10 Urine 2095 2890 80 Estimated Blood Loss 1200 Other: Voiding Method Indwelling Catheter Indwelling Catheter ABP, PAP, CO, CI - Last Documented Arterial Blood Pressure 106/66 Pulmonary Artery Pressure 15/6 Cardiac Output 4.5 Cardiac Index 2.5 - Constitutional General appearance: Present: cooperative, no acute distress, obese - Respiratory Details: Lungs sounds clear bilaterally. Respirations even, nonlabored. Currently on 3 L nasal cannula with oxygen saturation 97%. Able to achieve 1250 mL on her incentive spirometry. Effective cough. Mediastinal chest tube to continuous wall suction, 140 mL serosanguineous drainage overnight, 320 mL since surgery. Left pleural chest tube to continuous wall suction, 15 mL serosanguineous drainage overnight, 65 mL since surgery. No air leaks present. Mammary support in place. - Cardiovascular Details: S1, S2 present. Regular rate and rhythm, sinus rhythm on telemetry. Sternum stable. A/V epicardial pacemaker wires present, connected to generator, AAI mode, backup rate 40 bpm. Palpable peripheral pulses bilaterally. No edema present. No calf pain or tenderness noted. Right internal jugular Medora/Cordis , left radial arterial line present. Last CO/CI 4.5/2.5 on no inotropes. Heart hugger in place with patient demonstrating appropriate use. Antiembolism stockings, SCDs present. - Gastrointestinal Gastrointestinal Comment(s): Abdomen soft, nontender, nondistended. Hypoactive bowel sounds 4 quadrants. Tolerating clear liquid diet. Positive flatus. - Genitourinary Genitourinary Comment(s): Almaguer present draining clear, yellow urine. Output 150-300 mL/h overnight. - Integumentary Integumentary Comment(s): Skin is warm and dry with evidence of good perfusion. Anterior chest incision well approximated and covered with dry intact dressing. Left lower extremity EVH site well approximated, MASTER drain present with minimal serosanguineous drainage. - Neurologic Neurologic: Present: CNII-XII intact - Musculoskeletal Musculoskeletal: Present: strength equal bilaterally - Psychiatric Psychiatric Comment(s): Patient exhibits no tolerance for usual postoperative discomfort. Psychiatric: Present: A&O x's 3, appropriate affect - Allied health notes Allied health notes reviewed: nursing - Labs CBC & Chem 7: 12/12/17 04:00 12/12/17 04:00 Labs: Abnormal Lab Results - Last 24 Hours (Table) 12/10/17 12/11/17 12/11/17 Range/Units 05:38 09:16 10:22 WBC (3.8-10.6) k/uL RBC (3.80-5.40) m/uL Hgb (11.4-16.0) gm/dL Hct (34.0-46.0) % Neutrophils # (1.3-7.7) k/uL Neutrophils # (Manual) (1.3-7.7) k/uL Lymphocytes # (1.0-4.8) k/uL Monocytes # (0-1.0) k/uL Monocytes # (Manual) (0-1.0) k/uL Metamyelocytes # (Man) (0) k/uL Myelocytes # (Manual) (0) k/uL ABG pH 7.34 L (7.35-7.45) ABG pCO2 (35-45) mmHg ABG pO2 149 H 373 H (83-108) mmHg ABG HCO3 (21-25) mmol/L ABG Total CO2 (19-24) mmol/L ABG O2 Saturation 99.0 H 100.0 H (94-97) % ABG Hematocrit 28 L (34.0-46.0) % ABG Potassium 3.1 L 2.7 L* (3.4-4.5) mmol/L ABG Ionized Calcium (4.5-5.3) mg/dL ABG Glucose 221 H 153 H (75-99) mg/dL ABG Lactic Acid 2.3 H* 2.2 H* (0.5-1.6) mmol/L Hemoglobin 9.1 L (11.4-16.0) gm/dL Sodium (137-145) mmol/L Potassium (3.5-5.1) mmol/L Chloride (98-107) mmol/L Creatinine (0.52-1.04) mg/dL Glucose (74-99) mg/dL POC Glucose (mg/dL) (75-99) mg/dL Calcium (8.4-10.2) mg/dL Magnesium (1.6-2.3) mg/dL AST (14-36) U/L ALT (9-52) U/L Alkaline Phosphatase (38-126) U/L Total Protein (6.3-8.2) g/dL Albumin (3.5-5.0) g/dL Arterial Blood Potassium 3.1 L 2.7 L* (3.4-4.5) mmol/L Arterial Blood Glucose 221 H 153 H (75-99) mg/dL Crossmatch See Detail 12/11/17 12/11/17 12/11/17 Range/Units 11:03 11:33 12:13 WBC (3.8-10.6) k/uL RBC (3.80-5.40) m/uL Hgb (11.4-16.0) gm/dL Hct (34.0-46.0) % Neutrophils # (1.3-7.7) k/uL Neutrophils # (Manual) (1.3-7.7) k/uL Lymphocytes # (1.0-4.8) k/uL Monocytes # (0-1.0) k/uL Monocytes # (Manual) (0-1.0) k/uL Metamyelocytes # (Man) (0) k/uL Myelocytes # (Manual) (0) k/uL ABG pH (7.35-7.45) ABG pCO2 (35-45) mmHg ABG pO2 >420 H 297 H 286 H (83-108) mmHg ABG HCO3 26 H 26 H 26 H (21-25) mmol/L ABG Total CO2 28 H 27 H 27 H (19-24) mmol/L ABG O2 Saturation 100.0 H 100.0 H 100.0 H (94-97) % ABG Hematocrit 24 L 21 L 20 L* (34.0-46.0) % ABG Potassium 3.1 L (3.4-4.5) mmol/L ABG Ionized Calcium 4.1 L 4.2 L 4.2 L (4.5-5.3) mg/dL ABG Glucose 115 H 196 H 204 H (75-99) mg/dL ABG Lactic Acid 2.4 H* 2.1 H 2.0 H (0.5-1.6) mmol/L Hemoglobin 7.7 L 6.8 L* 6.4 L* (11.4-16.0) gm/dL Sodium (137-145) mmol/L Potassium (3.5-5.1) mmol/L Chloride (98-107) mmol/L Creatinine (0.52-1.04) mg/dL Glucose (74-99) mg/dL POC Glucose (mg/dL) (75-99) mg/dL Calcium (8.4-10.2) mg/dL Magnesium (1.6-2.3) mg/dL AST (14-36) U/L ALT (9-52) U/L Alkaline Phosphatase (38-126) U/L Total Protein (6.3-8.2) g/dL Albumin (3.5-5.0) g/dL Arterial Blood Potassium 3.1 L (3.4-4.5) mmol/L Arterial Blood Glucose 115 H 196 H 204 H (75-99) mg/dL Crossmatch 12/11/17 12/11/17 12/11/17 Range/Units 14:08 14:08 14:32 WBC 19.8 H (3.8-10.6) k/uL RBC 3.50 L (3.80-5.40) m/uL Hgb 9.6 L D (11.4-16.0) gm/dL Hct 28.7 L (34.0-46.0) % Neutrophils # 17.1 H (1.3-7.7) k/uL Neutrophils # (Manual) (1.3-7.7) k/uL Lymphocytes # (1.0-4.8) k/uL Monocytes # (0-1.0) k/uL Monocytes # (Manual) (0-1.0) k/uL Metamyelocytes # (Man) (0) k/uL Myelocytes # (Manual) (0) k/uL ABG pH (7.35-7.45) ABG pCO2 (35-45) mmHg ABG pO2 (83-108) mmHg ABG HCO3 (21-25) mmol/L ABG Total CO2 (19-24) mmol/L ABG O2 Saturation (94-97) % ABG Hematocrit (34.0-46.0) % ABG Potassium (3.4-4.5) mmol/L ABG Ionized Calcium (4.5-5.3) mg/dL ABG Glucose (75-99) mg/dL ABG Lactic Acid (0.5-1.6) mmol/L Hemoglobin (11.4-16.0) gm/dL Sodium (137-145) mmol/L Potassium (3.5-5.1) mmol/L Chloride 108 H (98-107) mmol/L Creatinine 0.41 L (0.52-1.04) mg/dL Glucose 129 H (74-99) mg/dL POC Glucose (mg/dL) 118 H (75-99) mg/dL Calcium 7.7 L (8.4-10.2) mg/dL Magnesium 2.8 H (1.6-2.3) mg/dL AST 204 H (14-36) U/L ALT 104 H (9-52) U/L Alkaline Phosphatase (38-126) U/L Total Protein 4.1 L (6.3-8.2) g/dL Albumin 2.6 L (3.5-5.0) g/dL Arterial Blood Potassium (3.4-4.5) mmol/L Arterial Blood Glucose (75-99) mg/dL Crossmatch 12/11/17 12/11/17 12/11/17 Range/Units 14:58 15:40 16:23 WBC (3.8-10.6) k/uL RBC (3.80-5.40) m/uL Hgb (11.4-16.0) gm/dL Hct (34.0-46.0) % Neutrophils # (1.3-7.7) k/uL Neutrophils # (Manual) (1.3-7.7) k/uL Lymphocytes # (1.0-4.8) k/uL Monocytes # (0-1.0) k/uL Monocytes # (Manual) (0-1.0) k/uL Metamyelocytes # (Man) (0) k/uL Myelocytes # (Manual) (0) k/uL ABG pH 7.34 L (7.35-7.45) ABG pCO2 50 H (35-45) mmHg ABG pO2 163 H (83-108) mmHg ABG HCO3 26 H (21-25) mmol/L ABG Total CO2 (19-24) mmol/L ABG O2 Saturation (94-97) % ABG Hematocrit (34.0-46.0) % ABG Potassium (3.4-4.5) mmol/L ABG Ionized Calcium (4.5-5.3) mg/dL ABG Glucose (75-99) mg/dL ABG Lactic Acid (0.5-1.6) mmol/L Hemoglobin (11.4-16.0) gm/dL Sodium (137-145) mmol/L Potassium (3.5-5.1) mmol/L Chloride (98-107) mmol/L Creatinine (0.52-1.04) mg/dL Glucose (74-99) mg/dL POC Glucose (mg/dL) 147 H 177 H (75-99) mg/dL Calcium (8.4-10.2) mg/dL Magnesium (1.6-2.3) mg/dL AST (14-36) U/L ALT (9-52) U/L Alkaline Phosphatase (38-126) U/L Total Protein (6.3-8.2) g/dL Albumin (3.5-5.0) g/dL Arterial Blood Potassium (3.4-4.5) mmol/L Arterial Blood Glucose (75-99) mg/dL Crossmatch 12/11/17 12/11/17 12/11/17 Range/Units 16:55 17:00 17:53 WBC 26.1 H* (3.8-10.6) k/uL RBC (3.80-5.40) m/uL Hgb (11.4-16.0) gm/dL Hct (34.0-46.0) % Neutrophils # (1.3-7.7) k/uL Neutrophils # (Manual) 23.20 H (1.3-7.7) k/uL Lymphocytes # (1.0-4.8) k/uL Monocytes # (0-1.0) k/uL Monocytes # (Manual) 1.31 H (0-1.0) k/uL Metamyelocytes # (Man) 0.26 H (0) k/uL Myelocytes # (Manual) 0.26 H (0) k/uL ABG pH (7.35-7.45) ABG pCO2 (35-45) mmHg ABG pO2 (83-108) mmHg ABG HCO3 (21-25) mmol/L ABG Total CO2 (19-24) mmol/L ABG O2 Saturation (94-97) % ABG Hematocrit (34.0-46.0) % ABG Potassium (3.4-4.5) mmol/L ABG Ionized Calcium (4.5-5.3) mg/dL ABG Glucose (75-99) mg/dL ABG Lactic Acid (0.5-1.6) mmol/L Hemoglobin (11.4-16.0) gm/dL Sodium (137-145) mmol/L Potassium (3.5-5.1) mmol/L Chloride (98-107) mmol/L Creatinine (0.52-1.04) mg/dL Glucose (74-99) mg/dL POC Glucose (mg/dL) 185 H 182 H (75-99) mg/dL Calcium (8.4-10.2) mg/dL Magnesium (1.6-2.3) mg/dL AST (14-36) U/L ALT (9-52) U/L Alkaline Phosphatase (38-126) U/L Total Protein (6.3-8.2) g/dL Albumin (3.5-5.0) g/dL Arterial Blood Potassium (3.4-4.5) mmol/L Arterial Blood Glucose (75-99) mg/dL Crossmatch 12/11/17 12/11/17 12/11/17 Range/Units 19:06 20:07 20:10 WBC (3.8-10.6) k/uL RBC (3.80-5.40) m/uL Hgb (11.4-16.0) gm/dL Hct (34.0-46.0) % Neutrophils # (1.3-7.7) k/uL Neutrophils # (Manual) (1.3-7.7) k/uL Lymphocytes # (1.0-4.8) k/uL Monocytes # (0-1.0) k/uL Monocytes # (Manual) (0-1.0) k/uL Metamyelocytes # (Man) (0) k/uL Myelocytes # (Manual) (0) k/uL ABG pH (7.35-7.45) ABG pCO2 (35-45) mmHg ABG pO2 (83-108) mmHg ABG HCO3 (21-25) mmol/L ABG Total CO2 (19-24) mmol/L ABG O2 Saturation (94-97) % ABG Hematocrit (34.0-46.0) % ABG Potassium (3.4-4.5) mmol/L ABG Ionized Calcium (4.5-5.3) mg/dL ABG Glucose (75-99) mg/dL ABG Lactic Acid (0.5-1.6) mmol/L Hemoglobin (11.4-16.0) gm/dL Sodium (137-145) mmol/L Potassium 3.1 L (3.5-5.1) mmol/L Chloride (98-107) mmol/L Creatinine 0.30 L (0.52-1.04) mg/dL Glucose 150 H (74-99) mg/dL POC Glucose (mg/dL) 180 H 150 H (75-99) mg/dL Calcium (8.4-10.2) mg/dL Magnesium (1.6-2.3) mg/dL AST 221 H (14-36) U/L ALT 134 H (9-52) U/L Alkaline Phosphatase 138 H (38-126) U/L Total Protein 5.3 L (6.3-8.2) g/dL Albumin (3.5-5.0) g/dL Arterial Blood Potassium (3.4-4.5) mmol/L Arterial Blood Glucose (75-99) mg/dL Crossmatch 12/11/17 12/11/17 12/11/17 Range/Units 20:10 21:00 22:04 WBC 22.7 H (3.8-10.6) k/uL RBC (3.80-5.40) m/uL Hgb (11.4-16.0) gm/dL Hct (34.0-46.0) % Neutrophils # 20.9 H (1.3-7.7) k/uL Neutrophils # (Manual) (1.3-7.7) k/uL Lymphocytes # 0.9 L (1.0-4.8) k/uL Monocytes # (0-1.0) k/uL Monocytes # (Manual) (0-1.0) k/uL Metamyelocytes # (Man) (0) k/uL Myelocytes # (Manual) (0) k/uL ABG pH (7.35-7.45) ABG pCO2 (35-45) mmHg ABG pO2 (83-108) mmHg ABG HCO3 (21-25) mmol/L ABG Total CO2 (19-24) mmol/L ABG O2 Saturation (94-97) % ABG Hematocrit (34.0-46.0) % ABG Potassium (3.4-4.5) mmol/L ABG Ionized Calcium (4.5-5.3) mg/dL ABG Glucose (75-99) mg/dL ABG Lactic Acid (0.5-1.6) mmol/L Hemoglobin (11.4-16.0) gm/dL Sodium (137-145) mmol/L Potassium (3.5-5.1) mmol/L Chloride (98-107) mmol/L Creatinine (0.52-1.04) mg/dL Glucose (74-99) mg/dL POC Glucose (mg/dL) 139 H 125 H (75-99) mg/dL Calcium (8.4-10.2) mg/dL Magnesium (1.6-2.3) mg/dL AST (14-36) U/L ALT (9-52) U/L Alkaline Phosphatase (38-126) U/L Total Protein (6.3-8.2) g/dL Albumin (3.5-5.0) g/dL Arterial Blood Potassium (3.4-4.5) mmol/L Arterial Blood Glucose (75-99) mg/dL Crossmatch 12/11/17 12/12/17 12/12/17 Range/Units 23:14 00:04 01:05 WBC (3.8-10.6) k/uL RBC (3.80-5.40) m/uL Hgb (11.4-16.0) gm/dL Hct (34.0-46.0) % Neutrophils # (1.3-7.7) k/uL Neutrophils # (Manual) (1.3-7.7) k/uL Lymphocytes # (1.0-4.8) k/uL Monocytes # (0-1.0) k/uL Monocytes # (Manual) (0-1.0) k/uL Metamyelocytes # (Man) (0) k/uL Myelocytes # (Manual) (0) k/uL ABG pH (7.35-7.45) ABG pCO2 (35-45) mmHg ABG pO2 (83-108) mmHg ABG HCO3 (21-25) mmol/L ABG Total CO2 (19-24) mmol/L ABG O2 Saturation (94-97) % ABG Hematocrit (34.0-46.0) % ABG Potassium (3.4-4.5) mmol/L ABG Ionized Calcium (4.5-5.3) mg/dL ABG Glucose (75-99) mg/dL ABG Lactic Acid (0.5-1.6) mmol/L Hemoglobin (11.4-16.0) gm/dL Sodium (137-145) mmol/L Potassium (3.5-5.1) mmol/L Chloride (98-107) mmol/L Creatinine (0.52-1.04) mg/dL Glucose (74-99) mg/dL POC Glucose (mg/dL) 115 H 148 H 135 H (75-99) mg/dL Calcium (8.4-10.2) mg/dL Magnesium (1.6-2.3) mg/dL AST (14-36) U/L ALT (9-52) U/L Alkaline Phosphatase (38-126) U/L Total Protein (6.3-8.2) g/dL Albumin (3.5-5.0) g/dL Arterial Blood Potassium (3.4-4.5) mmol/L Arterial Blood Glucose (75-99) mg/dL Crossmatch 12/12/17 12/12/17 12/12/17 Range/Units 02:05 03:05 04:00 WBC 24.1 H (3.8-10.6) k/uL RBC (3.80-5.40) m/uL Hgb (11.4-16.0) gm/dL Hct (34.0-46.0) % Neutrophils # 21.4 H (1.3-7.7) k/uL Neutrophils # (Manual) (1.3-7.7) k/uL Lymphocytes # (1.0-4.8) k/uL Monocytes # 1.2 H (0-1.0) k/uL Monocytes # (Manual) (0-1.0) k/uL Metamyelocytes # (Man) (0) k/uL Myelocytes # (Manual) (0) k/uL ABG pH (7.35-7.45) ABG pCO2 (35-45) mmHg ABG pO2 (83-108) mmHg ABG HCO3 (21-25) mmol/L ABG Total CO2 (19-24) mmol/L ABG O2 Saturation (94-97) % ABG Hematocrit (34.0-46.0) % ABG Potassium (3.4-4.5) mmol/L ABG Ionized Calcium (4.5-5.3) mg/dL ABG Glucose (75-99) mg/dL ABG Lactic Acid (0.5-1.6) mmol/L Hemoglobin (11.4-16.0) gm/dL Sodium (137-145) mmol/L Potassium (3.5-5.1) mmol/L Chloride (98-107) mmol/L Creatinine (0.52-1.04) mg/dL Glucose (74-99) mg/dL POC Glucose (mg/dL) 126 H 111 H (75-99) mg/dL Calcium (8.4-10.2) mg/dL Magnesium (1.6-2.3) mg/dL AST (14-36) U/L ALT (9-52) U/L Alkaline Phosphatase (38-126) U/L Total Protein (6.3-8.2) g/dL Albumin (3.5-5.0) g/dL Arterial Blood Potassium (3.4-4.5) mmol/L Arterial Blood Glucose (75-99) mg/dL Crossmatch 12/12/17 12/12/17 12/12/17 Range/Units 04:00 04:03 04:59 WBC (3.8-10.6) k/uL RBC (3.80-5.40) m/uL Hgb (11.4-16.0) gm/dL Hct (34.0-46.0) % Neutrophils # (1.3-7.7) k/uL Neutrophils # (Manual) (1.3-7.7) k/uL Lymphocytes # (1.0-4.8) k/uL Monocytes # (0-1.0) k/uL Monocytes # (Manual) (0-1.0) k/uL Metamyelocytes # (Man) (0) k/uL Myelocytes # (Manual) (0) k/uL ABG pH (7.35-7.45) ABG pCO2 (35-45) mmHg ABG pO2 (83-108) mmHg ABG HCO3 (21-25) mmol/L ABG Total CO2 (19-24) mmol/L ABG O2 Saturation (94-97) % ABG Hematocrit (34.0-46.0) % ABG Potassium (3.4-4.5) mmol/L ABG Ionized Calcium (4.5-5.3) mg/dL ABG Glucose (75-99) mg/dL ABG Lactic Acid (0.5-1.6) mmol/L Hemoglobin (11.4-16.0) gm/dL Sodium 133 L (137-145) mmol/L Potassium (3.5-5.1) mmol/L Chloride (98-107) mmol/L Creatinine 0.30 L (0.52-1.04) mg/dL Glucose 143 H (74-99) mg/dL POC Glucose (mg/dL) 148 H 139 H (75-99) mg/dL Calcium (8.4-10.2) mg/dL Magnesium (1.6-2.3) mg/dL AST 125 H (14-36) U/L ALT 111 H (9-52) U/L Alkaline Phosphatase 139 H (38-126) U/L Total Protein 5.2 L (6.3-8.2) g/dL Albumin 3.4 L (3.5-5.0) g/dL Arterial Blood Potassium (3.4-4.5) mmol/L Arterial Blood Glucose (75-99) mg/dL Crossmatch 12/12/17 12/12/17 12/12/17 Range/Units 06:00 07:07 08:25 WBC (3.8-10.6) k/uL RBC (3.80-5.40) m/uL Hgb (11.4-16.0) gm/dL Hct (34.0-46.0) % Neutrophils # (1.3-7.7) k/uL Neutrophils # (Manual) (1.3-7.7) k/uL Lymphocytes # (1.0-4.8) k/uL Monocytes # (0-1.0) k/uL Monocytes # (Manual) (0-1.0) k/uL Metamyelocytes # (Man) (0) k/uL Myelocytes # (Manual) (0) k/uL ABG pH (7.35-7.45) ABG pCO2 (35-45) mmHg ABG pO2 (83-108) mmHg ABG HCO3 (21-25) mmol/L ABG Total CO2 (19-24) mmol/L ABG O2 Saturation (94-97) % ABG Hematocrit (34.0-46.0) % ABG Potassium (3.4-4.5) mmol/L ABG Ionized Calcium (4.5-5.3) mg/dL ABG Glucose (75-99) mg/dL ABG Lactic Acid (0.5-1.6) mmol/L Hemoglobin (11.4-16.0) gm/dL Sodium (137-145) mmol/L Potassium (3.5-5.1) mmol/L Chloride (98-107) mmol/L Creatinine (0.52-1.04) mg/dL Glucose (74-99) mg/dL POC Glucose (mg/dL) 130 H 135 H 118 H (75-99) mg/dL Calcium (8.4-10.2) mg/dL Magnesium (1.6-2.3) mg/dL AST (14-36) U/L ALT (9-52) U/L Alkaline Phosphatase (38-126) U/L Total Protein (6.3-8.2) g/dL Albumin (3.5-5.0) g/dL Arterial Blood Potassium (3.4-4.5) mmol/L Arterial Blood Glucose (75-99) mg/dL Crossmatch Microbiology - Last 24 Hours (Table) 12/08/17 12:00 Urine Culture - Final Urine,Clean Catch Escherichia coli - Imaging and Cardiology Chest x-ray: report reviewed, image reviewed Assessment and Plan (1) Coronary artery disease involving left main coronary artery Current Visit: Yes Status: Chronic Code(s): I25.10 - ATHSCL HEART DISEASE OF [place] CORONARY ARTERY W/O ANG PCTRS SNOMED Code(s): 474643758 (2) Hypertension Current Visit: Yes Status: Chronic Code(s): I10 - ESSENTIAL (PRIMARY) HYPERTENSION SNOMED Code(s): 04863984 (3) Hyperlipidemia Current Visit: Yes Status: Chronic Code(s): E78.5 - HYPERLIPIDEMIA, UNSPECIFIED SNOMED Code(s): 32671636 (4) Diabetes Current Visit: Yes Status: Chronic Code(s): E11.9 - TYPE 2 DIABETES MELLITUS WITHOUT COMPLICATIONS SNOMED Code(s): 50844860 (5) Peripheral vascular disease Current Visit: Yes Status: Chronic Code(s): I73.9 - PERIPHERAL VASCULAR DISEASE, UNSPECIFIED SNOMED Code(s): 115146284 (6) Family history of heart disease Current Visit: Yes Status: Chronic Code(s): Z82.49 - FAMILY HX OF ISCHEM HEART DIS AND OTH DIS OF THE CIRC SYS SNOMED Code(s): 662515792 (7) Tobacco dependence in remission Current Visit: No Status: Resolved Code(s): F17.201 - NICOTINE DEPENDENCE, UNSPECIFIED, IN REMISSION SNOMED Code(s): 033596570 (8) Hypothyroid Current Visit: Yes Status: Chronic Code(s): E03.9 - HYPOTHYROIDISM, UNSPECIFIED SNOMED Code(s): 26597110 (9) Syncopal episodes Current Visit: No Status: Chronic Code(s): R55 - SYNCOPE AND COLLAPSE SNOMED Code(s): 855908151 (10) History of DVT (deep vein thrombosis) Current Visit: No Status: Resolved Code(s): Z86.718 - PERSONAL HISTORY OF OTHER VENOUS THROMBOSIS AND EMBOLISM SNOMED Code(s): 792197794 (11) History of atrial fibrillation Current Visit: No Status: Resolved Code(s): Z86.79 - PERSONAL HISTORY OF OTHER DISEASES OF THE CIRCULATORY SYSTEM SNOMED Code(s): 937116965 (12) Chronic low back pain Current Visit: Yes Status: Chronic Code(s): M54.5 - LOW BACK PAIN; G89.29 - OTHER CHRONIC PAIN SNOMED Code(s): 140363703 (13) Depression Current Visit: Yes Status: Chronic Code(s): F32.9 - MAJOR DEPRESSIVE DISORDER, SINGLE EPISODE, UNSPECIFIED SNOMED Code(s): 41828858 Plan: 1. Continue aspirin, Plavix, statin, beta sheree. Will increase beta sheree therapy as tolerated. 2. Wean O2 as tolerated. Encourage incentive spirometry use 10 times every hour. 3. Increase activity, ambulate as tolerated. PT/OT/cardiac rehab following. 4. Discontinue IV nitro. 5. Discontinue Med[place]-Zahraa catheter. Connected Cordis to continue CVP monitoring. 6. Will add oral amiodarone for A. fib prophylaxis. 7. Will give 20 mg IV Lasix today. 8. Monitor daily labs, chest x-rays. 9. GI/DVT prophylaxis. 10. Pain control per patient's home medications plus PRN medications plus IV Tylenol and Toradol. 11. Bronchodilators per pulmonology. 12. Insulin/diabetic management per Dr. Yousif. 13. Urine culture positive for E. coli. Continue Rocephin. 14. More recommendations to follow. Patient will need rehab at discharge. Will order Dr. Medrano consult once PT and OT have evaluated the patient. Time with Patient: Greater than 30
[2017-12-12 09:27] LABS: Glucose,Whole Blood 111 mg/dL (75-99)
[2017-12-12 10:01] LABS: Glucose,Whole Blood 112 mg/dL (75-99)
[2017-12-12 11:06] LABS: Glucose,Whole Blood 94 mg/dL (75-99)
[2017-12-12] MEDS: CYANOCOBALAMIN 500 MCG TAB PO SCH (11:54)
[2017-12-12] MEDS: SODIUM CHLORIDE 0.9% 500 ML IV SCH ×2 (11:56→16:05)
[2017-12-12 12:08] LABS: Glucose,Whole Blood 103 mg/dL (75-99)
--- NOTE | 2017-12-12 13:40 | PN ---
PROGRESS NOTE This patient is status post coronary artery bypass surgery. The patient is extubated. She hemodynamically remains stable. Patient remains in normal sinus rhythm. No dysrhythmias are noted. The patient has a temperature of a 100.2. Respiratory rate is 24. Respirations are not labored. First and second heart sounds are normal. Lungs reveal bilateral scattered [place] [address]. Electrolytes are normal. Creatinine is 0.30. We will continue the current medications. MMODL / IJN: [id number] /
[2017-12-12 14:00] LABS: Glucose,Whole Blood 140 mg/dL (75-99)
[2017-12-12] MEDS ORDERED: METOPROLOL TARTRATE 12.5 MG TAB PO SCH (14:00)
[2017-12-12] MEDS ORDERED: BISACODYL 10 MG SUPP RECTAL PRN (14:00)
[2017-12-12] MEDS ORDERED: MAGNESIUM HYDROXIDE 2,400 MG/10 ML CUP PO PRN (14:00)
[2017-12-12 14:45] LABS: Glucose,Whole Blood 176 mg/dL (75-99)
[2017-12-12] MEDS ORDERED: Potassium Replacement Protocol 1 EACH MISC MISCELLANE PRN (14:58)
[2017-12-12] MEDS ORDERED: POTASSIUM CHLORIDE 10 MEQ in WATER FOR INJECTION 1 100ML.BAG IVPB SCH (15:00)
[2017-12-12] MEDS ORDERED: POTASSIUM CHLORIDE 20 MEQ in WATER FOR INJECTION 1 100ML.BAG IVPB ONE (15:30)
[2017-12-12 16:04] LABS: Glucose,Whole Blood 128 mg/dL (75-99)
[2017-12-12 17:08] LABS: Glucose,Whole Blood 102 mg/dL (75-99)
--- NOTE | 2017-12-12 17:54 | PN ---
PROGRESS NOTE DATE OF SERVICE: 12/12/2017 This 72-year-old woman who was admitted after CAD had CABG. The patient still has chest tubes in place. Patient extubated. No chest pain. No palpitations. No fever. PHYSICAL EXAMINATION: Alert and oriented x3. Pulse is 82, blood pressure 140/70, respiration 16, temperature normal, pulse ox 99% on 2 L nasal cannula. HEENT: Conjunctivae normal. Oral mucosa moist. NECK: No jugular venous distention. No carotid bruit. No lymph node enlargement. CARDIOVASCULAR SYSTEM: S1, S2 muffled. RESPIRATORY SYSTEM: Breath sounds diminished at the bases. A few scattered rhonchi. ABDOMEN: Soft, nontender. NERVOUS SYSTEM: No focal deficit. LABS: Accu-Cheks 103, 176. LFTs are slightly elevated. WBC 24.1. Sodium 133. ASSESSMENT: 1. Coronary artery disease, status post coronary artery bypass grafting. 2. Atrial fibrillation. 3. History of coronary artery disease. 4. Diabetes mellitus, type 2. 5. Increased liver function tests. 6. Hypertension. 7. Hyperlipidemia. 8. History of degenerative joint disease. 9. Hypothyroidism. 10.History of possible allergic rhinitis. 11.History of nicotine dependence. 12.Increased white count. 13.Anxiety, depression. 14.Urinary tract infection with Escherichia coli, present on admission. RECOMMENDATIONS AND DISCUSSION: I recommend to continue current medication, continue with monitoring, symptomatic treatment. I would recommend repeating the urine culture. Otherwise continue to monitor. Further recommendations to follow. MMODL / IJN: [id number] /
[2017-12-12 18:12] LABS: Glucose,Whole Blood 173 mg/dL (75-99)
[2017-12-12] MEDS ORDERED: INSULIN ASPART 100 UNIT/ML 1 ML 10 ML VIAL SQ ONE (19:01)
[2017-12-12 20:26] LABS: Glucose,Whole Blood 171 mg/dL (75-99)
[2017-12-12] MEDS: INSULIN ASPART 100 UNIT/ML 1 ML 10 ML VIAL SQ SCH ×2 (20:28→20:31)
[2017-12-12] MEDS: SENNOSIDES-DOCUSATE SODIUM 1 EACH TAB PO SCH (20:30)
[2017-12-12] MEDS: POTASSIUM CHLORIDE ER 20 MEQ TAB.ER PO SCH (23:50)
[2017-12-13] MEDS: ALPRAZolam 0.25 MG TAB PO PRN ×2 (00:37→09:48)
[2017-12-13] MEDS: POTASSIUM CHLORIDE ER 20 MEQ TAB.ER PO SCH (00:37)
[2017-12-13] MEDS: KETOROLAC 30 MG/ML 1 ML VIAL IVP SCH ×4 (02:04→22:32)
[2017-12-13 04:41] LABS: Basophils % (A) 0 %; Eosinophils % (A) 0 %; HCT 28.8 % (34.0-46.0); Lymphocytes # (A) 1.1 k/uL (1.0-4.8); Lymphocytes % (A) 4 %; MCH 27.3 pg (25.0-35.0); MCHC 33.4 g/dL (31.0-37.0); MCV 81.7 fL (80.0-100.0); Mean Platelet Volume 7.8; Monocytes # (A) 1.1 k/uL (0-1.0); Monocytes % (A) 4 %; Neutrophils # (A) 23.4 k/uL (1.3-7.7); Neutrophils % (A) 91 %; Platelet Count 227 k/uL (150-450); RBC 3.52 m/uL (3.80-5.40); RDW 15.2 % (11.5-15.5)
[2017-12-13 04:49] LABS: HGB 9.6 gm/dL (11.4-16.0); WBC 25.8 k/uL (3.8-10.6)
[2017-12-13 04:55] LABS: ALT 70 U/L (9-52); AST 77 U/L (14-36); Albumin 2.6 g/dL (3.5-5.0); Alkaline Phosphatase 141 U/L (38-126); Anion Gap 7 mmol/L; Blood Urea Nitrogen 17 mg/dL (7-17); Calcium 8.5 mg/dL (8.4-10.2); Carbon Dioxide 22 mmol/L (22-30); Chloride 104 mmol/L (98-107); Glucose 139 mg/dL (74-99); Potassium 4.5 mmol/L (3.5-5.1); Sodium 133 mmol/L (137-145); Total Bilirubin 0.6 mg/dL (0.2-1.3); Total Protein 4.6 g/dL (6.3-8.2)
[2017-12-13] MEDS: LEVOTHYROXINE 75 MCG TAB PO SCH (06:42)
[2017-12-13] MEDS: PANTOPRAZOLE 40 MG TABLET PO SCH (06:42)
[2017-12-13] MEDS: ONDANSETRON 4 MG/2 ML VIAL IVP PRN (06:49)
--- NOTE | 2017-12-13 06:57 | XR ---
EXAMINATION TYPE: XR chest 1V portable DATE OF EXAM: 12/13/2017 CLINICAL HISTORY: Post open cardiac surgery progress study. TECHNIQUE: Single AP portable semiupright view of the chest is obtained. COMPARISON: Chest x-ray from one day earlier and older studies. FINDINGS: There is interval removal of right internal jugular [place] catheter, a cordis sheath re pankaj present. There is persistent mediastinal drainage catheter and left-sided chest tube. Overlying epicardial pacer wires are redemonstrated. Sternal wires and mediastinal clips as well as cardiac cl osure device are all redemonstrated. Cardiac silhouette size is stable and mildly enlarged with left basilar linear scarring and/or atelec tasis. Right lung remains clear. No sizable pneumothorax is evident bilaterally. Osseous structures a re intact. IMPRESSION: Persistent mild cardiomegaly with left basilar linear atelectasis. No new infiltrate is s een.
--- NOTE | 2017-12-13 07:05 | P.PN ---
Subjective Progress Note Date: 12/13/17 Principal diagnosis: Status post bypass grafting Progress note dated 12/13/2017 72-year-old female who is postop day #2, status post three-vessel bypass grafting. The patient is doing relatively well. The patient was able to be extubated in about 4 hours from mechanical ventilation. Postoperative ventilator management has been relatively stable. The patient is currently receiving O2 2 L. She is on IV of saline at 20 mL an hour. She's doing about 1250 on her incentive spirometer. Other than for some pain at the surgical site , she seems to not have major issues. She denies any chest pain or chest discomfort. No palpitations or fluttering. She denies any shortness breath difficulty breathing coughing wheezing or phlegm production. Denies coughing up any blood. No nausea vomiting or diarrhea noted. Objective - Vital Signs Vital signs: Vital Signs Temp 98.2 F 12/13/17 04:00 Pulse 88 12/13/17 06:00 Resp 15 12/13/17 06:00 BP 132/72 12/11/17 06:09 Pulse Ox 96 12/13/17 06:00 Intake & Output 12/12/17 12/12/17 12/13/17 06:59 18:59 06:59 Intake Total 6569.028 0188.374 372 Output Total 3125 1058 492 Balance -1882.298 947.374 -120 Weight 79.2 kg 79.2 kg 84.8 kg Intake: IV 1048 721 372 ACETAMINOPHEN IV (For NPO 100 200 ) 1,000 mg In Empty Bag 1 bag @ 400 mls/hr IVPB Q6HR WILLIAM Rx#:[id number] Cardiac Output 40 40 Lactated Ringers 1,000 ml 600 50 @ 50 mls/hr IV .Q20H WILLIAM Rx#:[id number] Potassium Chloride 20 meq 200 In Water For Injection 1 100ml.bag @ 50 mls/hr IVPB Q2H WILLIAM Rx#: [id number] Potassium Chloride 20 meq 200 In Water For Injection 1 100ml.bag @ 50 mls/hr IVPB Q2H WILLIAM Rx#: [id number] Pressure Bags 108 81 72 Sodium Chloride 0.9% 500 150 300 ml @ 20 mls/hr IV .Q24H WILLIAM Rx#:[id number] Intake, IV Titration 194.702 84.374 Amount Clevidipine Butyrate 25 138.900 50.266 mg In Empty Bag 1 bag @ 1 MG/HR 2 mls/hr IV .Q24H WILLIAM Rx#:[id number] Insulin Regular 100 unit 55.802 34.108 In Sodium Chloride 0.9% 100 ml @ Per Protocol IV .Q0M WILLIAM Rx#:[id number] Oral 1200 Output: Chest Tube Drainage 225 113 110 Chest Tube Mediastinal 210 100 80 Left Pleural 15 13 30 Drainage 10 0 10 Left Lower Leg MASTER 10 0 10 Urine 2890 945 372 Other: Voiding Method Indwelling Catheter Indwelling Catheter Indwelling Catheter # Voids 2 ABP, PAP, CO, CI - Last Documented Arterial Blood Pressure 98/59 Pulmonary Artery Pressure 4/4 Cardiac Output 4.5 Cardiac Index 2.5 - Exam No acute distress, oriented 3. Nasal O2 in place at 2 L/m. HEENT examination is grossly unremarkable. Mucous membranes are moist. No oral lesions. Neck supple. Full range of motion. No adenopathy thyromegaly or neck vein distention. Cardiovascular examination reveals regular rhythm rate. S1-S2 normal. No S3 or S4. No discernible murmur noted. Heart sounds are distant. Lungs reveal mostly clear breath sounds. A few scattered rhonchi are noted. She doesn't really take very deep breaths. No crackles or wheezes. Breath sounds equal bilaterally. Abdomen soft bowel sounds are heard. No masses or tenderness. Extremities are intact. No cyanosis clubbing or edema. Skin is without rash or lesion. Neurologic examination is brief but nonfocal. - Labs CBC & Chem 7: 12/13/17 04:10 12/13/17 04:10 Labs: Abnormal Lab Results - Last 24 Hours (Table) 12/12/17 12/12/17 12/12/17 Range/Units 07:07 08:25 09:25 WBC (3.8-10.6) k/uL RBC (3.80-5.40) m/uL Hgb (11.4-16.0) gm/dL Hct (34.0-46.0) % Neutrophils # (1.3-7.7) k/uL Monocytes # (0-1.0) k/uL Sodium (137-145) mmol/L Glucose (74-99) mg/dL POC Glucose (mg/dL) 135 H 118 H 111 H (75-99) mg/dL AST (14-36) U/L ALT (9-52) U/L Alkaline Phosphatase (38-126) U/L Total Protein (6.3-8.2) g/dL Albumin (3.5-5.0) g/dL 12/12/17 12/12/17 12/12/17 Range/Units 09:59 12:01 13:37 WBC (3.8-10.6) k/uL RBC (3.80-5.40) m/uL Hgb (11.4-16.0) gm/dL Hct (34.0-46.0) % Neutrophils # (1.3-7.7) k/uL Monocytes # (0-1.0) k/uL Sodium (137-145) mmol/L Glucose (74-99) mg/dL POC Glucose (mg/dL) 112 H 103 H 140 H (75-99) mg/dL AST (14-36) U/L ALT (9-52) U/L Alkaline Phosphatase (38-126) U/L Total Protein (6.3-8.2) g/dL Albumin (3.5-5.0) g/dL 12/12/17 12/12/17 12/12/17 Range/Units 14:42 16:02 17:05 WBC (3.8-10.6) k/uL RBC (3.80-5.40) m/uL Hgb (11.4-16.0) gm/dL Hct (34.0-46.0) % Neutrophils # (1.3-7.7) k/uL Monocytes # (0-1.0) k/uL Sodium (137-145) mmol/L Glucose (74-99) mg/dL POC Glucose (mg/dL) 176 H 128 H 102 H (75-99) mg/dL AST (14-36) U/L ALT (9-52) U/L Alkaline Phosphatase (38-126) U/L Total Protein (6.3-8.2) g/dL Albumin (3.5-5.0) g/dL 12/12/17 12/12/17 12/13/17 Range/Units 18:11 20:25 04:10 WBC (3.8-10.6) k/uL RBC (3.80-5.40) m/uL Hgb (11.4-16.0) gm/dL Hct (34.0-46.0) % Neutrophils # (1.3-7.7) k/uL Monocytes # (0-1.0) k/uL Sodium 133 L (137-145) mmol/L Glucose 139 H (74-99) mg/dL POC Glucose (mg/dL) 173 H 171 H (75-99) mg/dL AST 77 H (14-36) U/L ALT 70 H (9-52) U/L Alkaline Phosphatase 141 H (38-126) U/L Total Protein 4.6 L (6.3-8.2) g/dL Albumin 2.6 L (3.5-5.0) g/dL 12/13/17 Range/Units 04:10 WBC 25.8 H* (3.8-10.6) k/uL RBC 3.52 L (3.80-5.40) m/uL Hgb 9.6 L D (11.4-16.0) gm/dL Hct 28.8 L (34.0-46.0) % Neutrophils # 23.4 H (1.3-7.7) k/uL Monocytes # 1.1 H (0-1.0) k/uL Sodium (137-145) mmol/L Glucose (74-99) mg/dL POC Glucose (mg/dL) (75-99) mg/dL AST (14-36) U/L ALT (9-52) U/L Alkaline Phosphatase (38-126) U/L Total Protein (6.3-8.2) g/dL Albumin (3.5-5.0) g/dL Microbiology - Last 24 Hours (Table) 12/12/17 17:00 Urine Culture - Preliminary Urine,Catheterized Assessment and Plan Assessment: Assessment Postop day #2, status post multivessel bypass grafting for CAD Status post routine ventilator management Preoperative E. coli urinary tract infection Benign essential hypertension History of hyperlipidemia Type 2 diabetes mellitus Peripheral vascular occlusive disease Previous history of nicotine dependence, currently not smoking Hypothyroidism Paroxysmal atrial fibrillation Chronic low back pain History of depression Plan: Plan dated 12/13/2017 The patient seems to be progressing nicely. Chest x-ray will be evaluated as well the labs. Medications are also be evaluated. We will recommend continued use of the incentive spirometer. We also recommend deep breathing coughing and clearing his secretions. In addition, the patient should be maintained on the breathing treatments. White count is 25.8 hemoglobin 9.6 hematocrit 28.8 and platelet count is normal. Sodium is 133 potassium chloride CO2 anion gap BUN and creatinine are all normal. Chest x-ray reveals cardiomegaly, postoperative changes and some basilar atelectasis worse on the left than on the right side. I will continue to follow. Prognosis is guarded. Critical care time 32 minutes Time with Patient: Greater than 30
[2017-12-13] MEDS: HEPARIN SODIUM,PORCINE 5,000 UNIT/ML 1 ML VIAL SQ SCH ×2 (07:58→16:19)
[2017-12-13] MEDS: INSULIN ASPART 100 UNIT/ML 1 ML 10 ML VIAL SQ SCH ×5 (07:59→22:35)
[2017-12-13] MEDS: oxyCODONE ER 15 MG TAB.ER.12H PO SCH (08:01)
[2017-12-13] MEDS: METOPROLOL TARTRATE 12.5 MG TAB PO SCH ×3 (08:02→22:32)
[2017-12-13] MEDS: AMIODARONE 200 MG TAB PO SCH ×2 (08:02→22:28)
[2017-12-13] MEDS: ATORVASTATIN 40 MG TAB PO SCH (08:03)
[2017-12-13] MEDS: ASPIRIN 325 MG TAB PO SCH (08:03)
[2017-12-13] MEDS: CLOPIDOGREL 75 MG TAB PO SCH (08:03)
[2017-12-13] MEDS: LORATADINE 10 MG TAB PO SCH (08:04)
[2017-12-13] MEDS: MUPIROCIN 2% OINT 22 GM TUBE NASAL SCH ×3 (08:04→22:35)
[2017-12-13] MEDS: DULoxetine HCL 60 MG CAPSULE.DR PO SCH (08:04)
[2017-12-13] MEDS: IPRATROPIUM-ALBUTEROL 3 ML NEB INHALATION SCH ×4 (08:06→19:54)
--- NOTE | 2017-12-13 08:10 | P.PN ---
Subjective Progress Note Date: 12/13/17 Principal diagnosis: Coronary artery disease with critical left main disease. Preserved left ventricular function. Previous medical history of hypertension, hyperlipidemia , diabetes mellitus with preoperative hemoglobin A1c 8.1%, hypothyroid, chest granulomatous disease, peripheral vascular disease status post right fem-pop bypass, previous tobacco dependence with FEV1 109% of predicted in November 2016, recent fall in June 2017 with torn right rotator cuff, questionable DVT with previous Coumadin use greater than 2 years ago, syncopal episodes, paroxysmal atrial fibrillation, chronic low back pain, obesity, and depression. Preoperative E. coli urinary tract infection. POD #2 urgent quadruple coronary artery bypass grafting using the left internal mammary sequentially to the diagonal artery and to the left anterior descending artery, reverse saphenous vein graft from the aorta to the first obtuse marginal , reverse saphenous vein graft from the aorta to the third obtuse marginal artery. Bilateral pulmonary vein isolation using the AtriCure radiofrequency clamp. Exclusion of the left atrial appendage using a 35 mm AtriClip. Intraoperative transesophageal echocardiogram and epi-aortic scanning. Postoperative elevation in transaminases, an unexpected outcome, resolving. Patient's currently sitting up in the recliner in no acute distress. Complains of chronic lower back and knee pain. Remains hemodynamically stable. Needs a lot of encouragement to cough and deep breathe. Objective - Vital Signs Vital signs: Vital Signs Temp 98.2 F 12/13/17 04:00 Pulse 86 12/13/17 07:00 Resp 20 12/13/17 07:00 BP 132/72 12/11/17 06:09 Pulse Ox 96 12/13/17 07:00 Intake & Output 12/12/17 12/13/17 12/13/17 18:59 06:59 18:59 Intake Total 2004.374 372 36 Output Total 1058 492 80 Balance 947.374 -120 -44 Weight 79.2 kg 84.8 kg Intake: IV 721 372 36 ACETAMINOPHEN IV (For NPO 200 ) 1,000 mg In Empty Bag 1 bag @ 400 mls/hr IVPB Q6HR [facility] Rx#:[id number] Cardiac Output 40 Lactated Ringers 1,000 ml 50 @ 50 mls/hr IV .Q20H [facility] Rx#:[id number] Potassium Chloride 20 meq 200 In Water For Injection 1 100ml.bag @ 50 mls/hr IVPB Q2H [facility] Rx#: [id number] Pressure Bags 81 72 6 Sodium Chloride 0.9% 500 150 300 30 ml @ 20 mls/hr IV .Q24H [facility] Rx#:[id number] Intake, IV Titration 84.374 Amount Clevidipine Butyrate 25 50.266 mg In Empty Bag 1 bag @ 1 MG/HR 2 mls/hr IV .Q24H [facility] Rx#:[id number] Insulin Regular 100 unit 34.108 In Sodium Chloride 0.9% 100 ml @ Per Protocol IV .Q0M WILLIAM Rx#:[id number] Oral 1200 Output: Chest Tube Drainage 113 110 60 Chest Tube Mediastinal 100 80 30 Left Pleural 13 30 30 Drainage 0 10 Left Lower Leg MASTER 0 10 Urine 945 372 20 Other: Voiding Method Indwelling Catheter Indwelling Catheter # Voids 2 ABP, PAP, CO, CI - Last Documented Arterial Blood Pressure 111/66 Pulmonary Artery Pressure 4/4 Cardiac Output 4.5 Cardiac Index 2.5 - Constitutional General appearance: Present: cooperative, no acute distress, obese - Respiratory Details: Lungs sounds diminished bilaterally. Respirations even, nonlabored. Currently on 2 L nasal cannula with oxygen saturation 97%. Able to achieve 1000 mL on her incentive spirometry. Effective cough. Mediastinal chest tube to continuous wall suction, 70 mL serosanguineous drainage overnight, 200 mL in the last 24 hours. Left pleural chest tube to continuous wall suction, 30 mL serosanguineous drainage overnight, 70 mL in the last 24 hours. No air leaks present. Mammary support in place. - Cardiovascular Details: S1, S2 present. Regular rate and rhythm, sinus rhythm on telemetry. Sternum stable. A/V epicardial pacemaker wires present, connected to generator, AAI mode, backup rate 40 bpm. Palpable peripheral pulses bilaterally. No edema present. No calf pain or tenderness noted. Right internal jugular Cordis, left radial arterial line present. CVP 3-4. Heart hugger in place with patient demonstrating appropriate use. Antiembolism stockings, SCDs present. - Gastrointestinal Gastrointestinal Comment(s): Abdomen soft, nontender, nondistended. Hypoactive bowel sounds 4 quadrants. Tolerating diet. Positive flatus. - Genitourinary Genitourinary Comment(s): [place] present draining clear, yellow urine. Output 20-40 mL/h overnight. - Integumentary Integumentary Comment(s): Skin is warm and dry with evidence of good perfusion. Anterior chest incision well approximated and covered with dry intact dressing. Left lower extremity EVH site well approximated, MASTER drain present with minimal serosanguineous drainage. - Neurologic Neurologic: Present: CNII-XII intact - Musculoskeletal Musculoskeletal Comment(s): Uses a cane for ambulation. Musculoskeletal: Present: generalized weakness, strength equal bilaterally - Psychiatric Psychiatric: Present: A&O x's 3, appropriate affect, intact judgment & insight - Allied health notes Allied health notes reviewed: nursing - Labs CBC & Chem 7: 12/13/17 04:10 12/13/17 04:10 Labs: Abnormal Lab Results - Last 24 Hours (Table) 12/12/17 12/12/17 12/12/17 Range/Units 08:25 09:25 09:59 WBC (3.8-10.6) k/uL RBC (3.80-5.40) m/uL Hgb (11.4-16.0) gm/dL Hct (34.0-46.0) % Neutrophils # (1.3-7.7) k/uL Monocytes # (0-1.0) k/uL Sodium (137-145) mmol/L Glucose (74-99) mg/dL POC Glucose (mg/dL) 118 H 111 H 112 H (75-99) mg/dL AST (14-36) U/L ALT (9-52) U/L Alkaline Phosphatase (38-126) U/L Total Protein (6.3-8.2) g/dL Albumin (3.5-5.0) g/dL 12/12/17 12/12/17 12/12/17 Range/Units 12:01 13:37 14:42 WBC (3.8-10.6) k/uL RBC (3.80-5.40) m/uL Hgb (11.4-16.0) gm/dL Hct (34.0-46.0) % Neutrophils # (1.3-7.7) k/uL Monocytes # (0-1.0) k/uL Sodium (137-145) mmol/L Glucose (74-99) mg/dL POC Glucose (mg/dL) 103 H 140 H 176 H (75-99) mg/dL AST (14-36) U/L ALT (9-52) U/L Alkaline Phosphatase (38-126) U/L Total Protein (6.3-8.2) g/dL Albumin (3.5-5.0) g/dL 12/12/17 12/12/17 12/12/17 Range/Units 16:02 17:05 18:11 WBC (3.8-10.6) k/uL RBC (3.80-5.40) m/uL Hgb (11.4-16.0) gm/dL Hct (34.0-46.0) % Neutrophils # (1.3-7.7) k/uL Monocytes # (0-1.0) k/uL Sodium (137-145) mmol/L Glucose (74-99) mg/dL POC Glucose (mg/dL) 128 H 102 H 173 H (75-99) mg/dL AST (14-36) U/L ALT (9-52) U/L Alkaline Phosphatase (38-126) U/L Total Protein (6.3-8.2) g/dL Albumin (3.5-5.0) g/dL 12/12/17 12/13/17 12/13/17 Range/Units 20:25 04:10 04:10 WBC 25.8 H* (3.8-10.6) k/uL RBC 3.52 L (3.80-5.40) m/uL Hgb 9.6 L D (11.4-16.0) gm/dL Hct 28.8 L (34.0-46.0) % Neutrophils # 23.4 H (1.3-7.7) k/uL Monocytes # 1.1 H (0-1.0) k/uL Sodium 133 L (137-145) mmol/L Glucose 139 H (74-99) mg/dL POC Glucose (mg/dL) 171 H (75-99) mg/dL AST 77 H (14-36) U/L ALT 70 H (9-52) U/L Alkaline Phosphatase 141 H (38-126) U/L Total Protein 4.6 L (6.3-8.2) g/dL Albumin 2.6 L (3.5-5.0) g/dL Microbiology - Last 24 Hours (Table) 12/12/17 17:00 Urine Culture - Preliminary Urine,Catheterized - Imaging and Cardiology Chest x-ray: report reviewed, image reviewed Assessment and Plan (1) Coronary artery disease involving left main coronary artery Current Visit: Yes Status: Chronic Code(s): I25.10 - ATHSCL HEART DISEASE OF [place] CORONARY ARTERY W/O ANG PCTRS SNOMED Code(s): 954994601 (2) Hypertension Current Visit: Yes Status: Chronic Code(s): I10 - ESSENTIAL (PRIMARY) HYPERTENSION SNOMED Code(s): 82219769 (3) Hyperlipidemia Current Visit: Yes Status: Chronic Code(s): E78.5 - HYPERLIPIDEMIA, UNSPECIFIED SNOMED Code(s): 37476957 (4) Diabetes Current Visit: Yes Status: Chronic Code(s): E11.9 - TYPE 2 DIABETES MELLITUS WITHOUT COMPLICATIONS SNOMED Code(s): 58241720 (5) Peripheral vascular disease Current Visit: Yes Status: Chronic Code(s): I73.9 - PERIPHERAL VASCULAR DISEASE, UNSPECIFIED SNOMED Code(s): 220281091 (6) Family history of heart disease Current Visit: Yes Status: Chronic Code(s): Z82.49 - FAMILY HX OF ISCHEM HEART DIS AND OTH DIS OF THE CIRC SYS SNOMED Code(s): 549287887 (7) Tobacco dependence in remission Current Visit: No Status: Resolved Code(s): F17.201 - NICOTINE DEPENDENCE, UNSPECIFIED, IN REMISSION SNOMED Code(s): 669817837 (8) Hypothyroid Current Visit: Yes Status: Chronic Code(s): E03.9 - HYPOTHYROIDISM, UNSPECIFIED SNOMED Code(s): 12215035 (9) Syncopal episodes Current Visit: No Status: Chronic Code(s): R55 - SYNCOPE AND COLLAPSE SNOMED Code(s): 543106923 (10) History of DVT (deep vein thrombosis) Current Visit: No Status: Resolved Code(s): Z86.718 - PERSONAL HISTORY OF OTHER VENOUS THROMBOSIS AND EMBOLISM SNOMED Code(s): 644362540 (11) History of atrial fibrillation Current Visit: No Status: Resolved Code(s): Z86.79 - PERSONAL HISTORY OF OTHER DISEASES OF THE CIRCULATORY SYSTEM SNOMED Code(s): 174607595 (12) Chronic low back pain Current Visit: Yes Status: Chronic Code(s): M54.5 - LOW BACK PAIN; G89.29 - OTHER CHRONIC PAIN SNOMED Code(s): 068368743 (13) Depression Current Visit: Yes Status: Chronic Code(s): F32.9 - MAJOR DEPRESSIVE DISORDER, SINGLE EPISODE, UNSPECIFIED SNOMED Code(s): 62794551 Plan: 1. Continue aspirin, Plavix, statin, beta sheree. Will increase beta sheree therapy as tolerated. 2. Wean O2 as tolerated. Encourage incentive spirometry use 10 times every hour. Patient needs much encouragement to cough and deep breathe. 3. Increase activity, ambulate as tolerated. PT/OT/cardiac rehab following. 4. Continue amiodarone for A. fib prophylaxis. 5. CVP 3-4 with low urine output, encourage patient to drink fluids. 6. Likely will discontinue chest tubes today. 7. Monitor daily labs, chest x-rays. 8. GI/DVT prophylaxis. 9. Pain control with current medication regimen. 10. Bronchodilators per pulmonology. 11. Insulin/diabetic management per Dr. Yousif. 12. Preoperative urine culture positive for E. coli. Continue Rocephin. 13. Likely will transfer to [facility]] care later today. 14. More recommendations to follow. Patient will need rehab at discharge. Will order Dr. Medrano consult once PT and OT have evaluated the patient. Time with Patient: Greater than 30
[2017-12-13] MEDS ORDERED: FUROSEMIDE 10 MG/ML 2 ML VIAL IV ONE (08:36)
[2017-12-13] MEDS ORDERED: cefTRIAXone IN SWFI 1,000 MG/10 ML SYRINGE IVP SCH (09:00)
--- NOTE | 2017-12-13 09:33 | P.VSCSTY ---
Greater Saphenous Vein Mapping This is bilateral lower extremity greater saphenous vein mapping. Date of service 12/08/2017 Vein quality and ultrasound appearance there is some echogenicity in the right mid calf and this area should be avoided.. Vein size groin right 7 x 5.6 groin left 6.7 x 7 High thigh right 6.7 x 4.9 high thigh left 8.4 x 5.4 Mid thigh right 6.3 x 4.6 mid thigh left 5.5 x 4.3 Above-knee right 4.1 x 4.0 above- knee left 4.4 x 3.6 Below knee right 3.4 x 3.5 below-knee left 5.0 x 4.1 Mid calf right 2.6 x 2.2 mid calf left 3.7 x 3.2 Ankle right 3.0 x 3.3 ankle left 4.0 x 3.3 Impression usable greater says vein on the left. Usable upper right greater saphenous vein. Would avoid the mid calf on the right..
[2017-12-13] MEDS ORDERED: ALBUMIN HUMAN 5% 500 ML in EMPTY BAG 1 BAG IVPB ONE (11:32)
[2017-12-13 12:10] LABS: Glucose,Whole Blood 162 mg/dL (75-99)
[2017-12-13 15:28] LABS: Glucose,Whole Blood 204 mg/dL (75-99)
[2017-12-13] MEDS ORDERED: oxyCODONE ER 15 MG TAB.ER.12H PO PRN (15:59)
[2017-12-13] MEDS: CYANOCOBALAMIN 500 MCG TAB PO SCH (16:21)
[2017-12-13] MEDS ORDERED: ALBUMIN HUMAN 5% 250 ML in EMPTY BAG 1 BAG IVPB ONE (16:26)
[2017-12-13 17:21] LABS: Glucose,Whole Blood 180 mg/dL (75-99)
--- NOTE | 2017-12-13 17:56 | PN ---
PROGRESS NOTE DATE OF SERVICE: 12/13/2017 This 72-year-old woman who was admitted after CAD/CABG, is slightly drowsy today. The patient has taken Xanax around the clock and oxycodone which has been stopped today. The patient white count is also elevated. Patient has empiric antibiotics. E coli grown from previous cultures from UTI. PAST MEDICAL HISTORY: Reviewed. REVIEW OF SYSTEMS: Could not be taken the patient is rather drowsy, but arousable. CURRENT MEDICATIONS: 1. DuoNeb q.i.d. and p.r.n. 2. Cordarone 400 mg b.i.d. 3. Aspirin 320 mg daily. 4. Lipitor 40 mg daily. 5. Cepacol. 6. Dulcolax. 7. Rocephin 1 g. 8. Plavix 75 mg. 9. Vitamin B12. 10.Cymbalta. 11.Heparin subcu q8. 12.NovoLog scale. 13.Toradol p.r.n. 14.Synthroid. 15.Claritin 10 mg p.o. daily. 16.Milk of magnesia. 17.Lopressor. 18.Bactroban. 19.Zofran. 20.OxyContin. 21.Oxy IR. 22.Protonix. PHYSICAL EXAM: Patient is arousable. Pulse is 103. Blood pressure is 125/58, respiration 19, temperature 99.5, pulse ox 94% on room air. HEENT: Conjunctivae normal. Oral mucosa moist. Neck is no jugular venous distention. No No carotid bruit. No lymph node enlargement. Cardiovascular system: S1, S2 muffled. Respiration: Breath sounds diminished in the bases. A few scattered rhonchi. No crackles. ABDOMEN: Soft, nontender. Legs are no edema, no swelling. Central nervous system: Diffusely weak. Neurology exam could not be completed because of the drowsiness. Skin: No ulcers, rashes or bleeding. LAB STUDIES: WBC 24.9, hemoglobin 9.6. ASSESSMENT: 1. Coronary artery disease status post coronary artery bypass grafting. 2. Atrial fibrillation. 3. Change in mental status, metabolic encephalopathy possibly medication induced. 4. History of coronary artery disease. 5. Diabetes mellitus type 2. 6. Increased LFTs. 7. Hypertension. 8. Hyperlipidemia. 9. History of degenerative joint disease. 10.History of hypothyroidism. 11.History of possible allergic rhinitis. 12.History of nicotine dependence. 13.Increased WBC. 14.Anxiety, depression. 15.Urinary tract infection with E coli present on admission. RECOMMENDATIONS AND DISCUSSION: Recommend to continue current medications, management and symptomatic treatment. I would recommend monitor the WBC closely and blood cultures. Otherwise, continue rest of medications. Hold off the pain medications. Neuro checks and closely follow up with Cardiothoracic surgery. Further recommendations to follow. See orders. Discussed with staff. GUERLINE / ALONAN: [id number] /
[2017-12-13 21:00] LABS: Glucose,Whole Blood 152 mg/dL (75-99)
[2017-12-13 21:35] LABS: Glucose,Whole Blood 170 mg/dL (75-99)
[2017-12-13] MEDS ORDERED: ACETAMINOPHEN IV (For NPO) 1,000 MG in EMPTY BAG 1 BAG IVPB STA (22:06)
--- NOTE | 2017-12-13 22:22 | XR ---
EXAMINATION TYPE: XR chest 1V portable DATE OF EXAM: 12/13/2017 COMPARISON: 12/13/2017 at 5:00 AM HISTORY: Confusion TECHNIQUE: Single frontal view of the chest is obtained. FINDINGS: There are chest leads. There are sternal wires. There is mild pulmonary congestion. There is some infiltrate in the left lower lobe. IMPRESSION: There is some infiltrate and atelectasis in the left lower lobe that is the same or incr eased compared to the exam this morning. There is been removal of left chest tube compared to last ex am. No pneumothorax. No overt heart failure.
[2017-12-13] MEDS: SENNOSIDES-DOCUSATE SODIUM 1 EACH TAB PO SCH (22:33)
--- NOTE | 2017-12-13 23:05 | CT ---
EXAMINATION TYPE: CT brain wo con DATE OF EXAM: 12/13/2017 COMPARISON: None HISTORY: Acute confusion. CT DLP: 997.8 mGycm Automated exposure control for dose reduction was used. FINDINGS: There is cerebral cortical atrophy. There is no mass effect nor midline shift. There is no sign of in tracranial hemorrhage. There is hypodensity in the periventricular white matter. The calvarium is int act. IMPRESSION: CEREBRAL ATROPHY AND CHRONIC SMALL VESSEL ISCHEMIA. NO ACUTE INTRACRANIAL ABNORMALITY.
[2017-12-13] MEDS ORDERED: VANCOMYCIN IV PER PHARMACY 1 EACH MISC MISCELLANE PRN (23:38)
[2017-12-13] MEDS: PIPERACILLIN-TAZOBACTAM 3.375 GM in DEXTROSE/WATER 1 50ML.BAG IVPB SCH (23:56)
[2017-12-14] MEDS ORDERED: VANCOMYCIN 1,750 MG in SODIUM CHLORIDE 0.9% 500 ML IVPB ONE ×2
[2017-12-14] MEDS: HEPARIN SODIUM,PORCINE 5,000 UNIT/ML 1 ML VIAL SQ SCH ×4 (00:02→23:19)
[2017-12-14] MEDS: KETOROLAC 30 MG/ML 1 ML VIAL IVP SCH ×4 (01:59→19:59)
[2017-12-14] MEDS ORDERED: ACETAMINOPHEN IV (For NPO) 1,000 MG in EMPTY BAG 1 BAG IVPB PRN (02:14)
[2017-12-14] MEDS ORDERED: SODIUM CHLORIDE 0.9% 500 ML IV ONE (02:15)
[2017-12-14] MEDS: SODIUM CHLORIDE 0.9% 1,000 ML IV SCH ×2 (03:41→21:17)
[2017-12-14] MEDS: PIPERACILLIN-TAZOBACTAM 3.375 GM in DEXTROSE/WATER 1 50ML.BAG IVPB SCH ×4 (05:19→23:18)
[2017-12-14 06:00] LABS: Glucose,Whole Blood 188 mg/dL (75-99)
[2017-12-14 06:07] LABS: ALT 59 U/L (9-52); AST 78 U/L (14-36); Albumin 2.6 g/dL (3.5-5.0); Alkaline Phosphatase 135 U/L (38-126); Anion Gap 11 mmol/L; Blood Urea Nitrogen 21 mg/dL (7-17); Calcium 8.5 mg/dL (8.4-10.2); Carbon Dioxide 19 mmol/L (22-30); Chloride 102 mmol/L (98-107); Glucose 174 mg/dL (74-99); Potassium 4.1 mmol/L (3.5-5.1); Sodium 132 mmol/L (137-145); Total Protein 4.6 g/dL (6.3-8.2)
[2017-12-14] MEDS: PANTOPRAZOLE 40 MG TABLET PO SCH (06:16)
[2017-12-14] MEDS: LEVOTHYROXINE 75 MCG TAB PO SCH (06:16)
[2017-12-14] MEDS: INSULIN ASPART 100 UNIT/ML 1 ML 10 ML VIAL SQ SCH ×4 (06:17→21:17)
[2017-12-14 07:18] LABS: Basophils % (A) 0 %; Eosinophils # (A) 0.1 k/uL (0-0.7); Eosinophils % (A) 0 %; HCT 23.4 % (34.0-46.0); Lymphocytes # (A) 0.6 k/uL (1.0-4.8); Lymphocytes % (A) 3 %; MCHC 33.5 g/dL (31.0-37.0); MCV 83.8 fL (80.0-100.0); Mean Platelet Volume 8.3; Monocytes # (A) 0.6 k/uL (0-1.0); Monocytes % (A) 4 %; Neutrophils # (A) 16.2 k/uL (1.3-7.7); Neutrophils % (A) 92 %; Platelet Count 209 k/uL (150-450); RDW 15.4 % (11.5-15.5); WBC 17.7 k/uL (3.8-10.6)
[2017-12-14 07:22] LABS: HGB 7.8 gm/dL (11.4-16.0)
[2017-12-14] MEDS: IPRATROPIUM-ALBUTEROL 3 ML NEB INHALATION SCH ×4 (07:57→20:17)
[2017-12-14] MEDS ORDERED: ACETAMINOPHEN IV (For NPO) 1,000 MG in EMPTY BAG 1 BAG IVPB SCH (08:00)
[2017-12-14] MEDS: ASPIRIN 325 MG TAB PO SCH (08:23)
[2017-12-14] MEDS: HYDROcodone/APAP 5-325MG 1 EACH TAB PO PRN ×2 (08:23→13:51)
[2017-12-14] MEDS: AMIODARONE 200 MG TAB PO SCH ×2 (08:24→19:59)
[2017-12-14] MEDS: CYANOCOBALAMIN 500 MCG TAB PO SCH (08:24)
[2017-12-14] MEDS: DULoxetine HCL 60 MG CAPSULE.DR PO SCH (08:24)
[2017-12-14] MEDS: ATORVASTATIN 40 MG TAB PO SCH (08:24)
[2017-12-14] MEDS: CLOPIDOGREL 75 MG TAB PO SCH (08:24)
[2017-12-14] MEDS: MUPIROCIN 2% OINT 22 GM TUBE NASAL SCH ×2 (08:25→19:59)
--- NOTE | 2017-12-14 08:37 | XR ---
EXAMINATION TYPE: XR chest 1V portable DATE OF EXAM: 12/14/2017 COMPARISON: 12/13/2017 HISTORY: Status post cardiac surgery. TECHNIQUE: Single frontal view of the chest is obtained. FINDINGS: Post CABG changes of the chest are seen with sternotomy wires, mediastinal clips and closu re device. Cardiac silhouette is mildly enlarged as seen on the prior. There are low lung volumes and minimal pulmonary vascular congestion. Retrocardiac airspace is redemonstrated. Blunting of the cost ophrenic angle suggests trace pleural effusions. Bilateral shoulder arthropathy is seen. IMPRESSION: Very minimal pulmonary vascular congestion cannot be exaggerated by low lung volumes in addition to persistent unchanged retrocardiac airspace disease, likely atelectasis, and trace pleural effusions.
--- NOTE | 2017-12-14 09:20 | P.PN ---
Subjective Progress Note Date: 12/14/17 Principal diagnosis: Coronary artery disease with critical left main disease. Preserved left ventricular function. Previous medical history of hypertension, hyperlipidemia , diabetes mellitus with preoperative hemoglobin A1c 8.1%, hypothyroid, chest granulomatous disease, peripheral vascular disease status post right fem-pop bypass, previous tobacco dependence with FEV1 109% of predicted in November 2016, recent fall in June 2017 with torn right rotator cuff, questionable DVT with previous Coumadin use greater than 2 years ago, syncopal episodes, paroxysmal atrial fibrillation, chronic low back pain, obesity, and depression. Preoperative E. coli urinary tract infection. POD #3 urgent quadruple coronary artery bypass grafting using the left internal mammary sequentially to the diagonal artery and to the left anterior descending artery, reverse saphenous vein graft from the aorta to the first obtuse marginal , reverse saphenous vein graft from the aorta to the third obtuse marginal artery. Bilateral pulmonary vein isolation using the AtriCure radiofrequency clamp. Exclusion of the left atrial appendage using a 35 mm AtriClip. Intraoperative transesophageal echocardiogram and epi-aortic scanning. Postoperative elevation in transaminases, an unexpected outcome, resolving. Leukocytosis, present preoperatively. Patient is currently sitting up in the chair in no acute distress. Alert and oriented 3 with no focal deficits. Was transferred to [address] [place] [address] yesterday. Had episodes of somnolence and confusion yesterday, patient's home narcotic pain medication regimen was reduced and then discontinued. Patient spiked a temperature of 102.6F and had an elevated lactic acid of 2.8. She was given IV fluids and Tylenol. Temperature this morning is 99.3 with a lactic acid of 1.3. Computed tomography scan of the brain was completed demonstrating no acute process. Neuro checks remain unremarkable. Rocephin for preoperative E. coli UTI was discontinued. Repeat urine culture was negative. Blood cultures were drawn. Patient was placed on vancomycin and Zosyn IV with a consult placed to Dr. Mccartney from infectious disease. Chest tubes, arterial line, central line, Almaguer were discontinued yesterday. Objective - Vital Signs Vital signs: Vital Signs Temp 99.3 F 12/14/17 04:00 Pulse 82 12/14/17 08:07 Resp 18 12/14/17 04:00 BP 106/52 12/14/17 04:00 Pulse Ox 95 12/14/17 04:00 Intake & Output 12/13/17 12/14/17 12/14/17 18:59 06:59 18:59 Intake Total 670 710 Output Total 321 200 Balance 349 510 Weight 89.5 kg Intake: IV 670 Albumin Human 5% 250 ml 500 In Empty Bag 1 bag @ 250 mls/hr IVPB Q1HR PRN Rx#: [id number] Pressure Bags 30 Sodium Chloride 0.9% 500 140 ml @ 20 mls/hr IV .Q24H [facility] Rx#:[id number] Intake, IV Titration 710 Amount Piperacillin-Tazobactam 3 50 .375 gm In Dextrose/Water 1 50ml.bag @ 12.5 mls/hr IVPB Q6HR [facility] Rx#: [id number] Sodium Chloride 0.9% 500 160 ml @ 20 mls/hr IV .Q24H [facility] Rx#:[id number] Vancomycin 1,750 mg In 500 Sodium Chloride 0.9% 500 ml @ 167 mls/hr IVPB ONCE ONE Rx#:[id number] Output: Chest Tube Drainage 76 Chest Tube Mediastinal 40 Left Pleural 36 Drainage 5 Left Lower Leg MASTER 5 Urine 240 200 Other: Voiding Method Indwelling Catheter Bedpan # Voids 1 ABP, PAP, CO, CI - Last Documented Arterial Blood Pressure 122/59 Pulmonary Artery Pressure 4/4 Cardiac Output 4.5 Cardiac Index 2.5 - Constitutional General appearance: Present: cooperative, no acute distress, obese - Respiratory Details: Lungs sounds diminished bilaterally. Respirations even, nonlabored. Currently on 2 L nasal cannula with oxygen saturation 95%. Able to achieve 1000 mL on her incentive spirometry. Mammary support in place. - Cardiovascular Details: S1, S2 present. Regular rate and rhythm, sinus rhythm on telemetry. Sternum stable. A/V epicardial pacemaker wires present, grounded. Palpable peripheral pulses bilaterally. No edema present. No calf pain or tenderness noted. Heart hugger in place with patient demonstrating appropriate use. Antiembolism stockings, SCDs present. - Gastrointestinal Gastrointestinal Comment(s): Abdomen soft, nontender, nondistended. Active bowel sounds 4 quadrants. Tolerating diet. Positive flatus. - Genitourinary Genitourinary Comment(s): Almaguer discontinued yesterday. PVR with bladder scan done twice yesterday, first -time demonstrating 138 mL residual and the second time demonstrating a little over 200 mL residual, patient subsequently voided 200 mL urine. - Integumentary Integumentary Comment(s): Skin is warm and dry with evidence of good perfusion. Anterior chest incision well approximated and covered with dry intact dressing. Left lower extremity EVH site well approximated. - Neurologic Neurologic: Present: CNII-XII intact - Musculoskeletal Musculoskeletal: Present: generalized weakness - Psychiatric Psychiatric: Present: A&O x's 3, appropriate affect, intact judgment & insight - Allied health notes Allied health notes reviewed: nursing - Labs CBC & Chem 7: 12/14/17 05:41 12/14/17 05:41 Labs: Abnormal Lab Results - Last 24 Hours (Table) 12/13/17 12/13/17 12/13/17 Range/Units 12:07 15:26 17:16 WBC (3.8-10.6) k/uL RBC (3.80-5.40) m/uL Hgb (11.4-16.0) gm/dL Hct (34.0-46.0) % Neutrophils # (1.3-7.7) k/uL Lymphocytes # (1.0-4.8) k/uL Sodium (137-145) mmol/L Carbon Dioxide (22-30) mmol/L BUN (7-17) mg/dL Glucose (74-99) mg/dL POC Glucose (mg/dL) 162 H 204 H 180 H (75-99) mg/dL Plasma Lactic Acid Frederick (0.7-2.0) mmol/L AST (14-36) U/L ALT (9-52) U/L Alkaline Phosphatase (38-126) U/L Total Protein (6.3-8.2) g/dL Albumin (3.5-5.0) g/dL 12/13/17 12/13/17 12/13/17 Range/Units 20:57 21:33 22:12 WBC (3.8-10.6) k/uL RBC (3.80-5.40) m/uL Hgb (11.4-16.0) gm/dL Hct (34.0-46.0) % Neutrophils # (1.3-7.7) k/uL Lymphocytes # (1.0-4.8) k/uL Sodium (137-145) mmol/L Carbon Dioxide (22-30) mmol/L BUN (7-17) mg/dL Glucose (74-99) mg/dL POC Glucose (mg/dL) 152 H 170 H (75-99) mg/dL Plasma Lactic Acid Frederick 2.8 H* (0.7-2.0) mmol/L AST (14-36) U/L ALT (9-52) U/L Alkaline Phosphatase (38-126) U/L Total Protein (6.3-8.2) g/dL Albumin (3.5-5.0) g/dL 12/14/17 12/14/17 12/14/17 Range/Units 05:41 05:41 05:58 WBC 17.7 H (3.8-10.6) k/uL RBC 2.80 L (3.80-5.40) m/uL Hgb 7.8 L D (11.4-16.0) gm/dL Hct 23.4 L (34.0-46.0) % Neutrophils # 16.2 H (1.3-7.7) k/uL Lymphocytes # 0.6 L (1.0-4.8) k/uL Sodium 132 L (137-145) mmol/L Carbon Dioxide 19 L (22-30) mmol/L BUN 21 H (7-17) mg/dL Glucose 174 H (74-99) mg/dL POC Glucose (mg/dL) 188 H (75-99) mg/dL Plasma Lactic Acid Frederick (0.7-2.0) mmol/L AST 78 H (14-36) U/L ALT 59 H (9-52) U/L Alkaline Phosphatase 135 H (38-126) U/L Total Protein 4.6 L (6.3-8.2) g/dL Albumin 2.6 L (3.5-5.0) g/dL Microbiology - Last 24 Hours (Table) 12/12/17 17:00 Urine Culture - Final Urine,Catheterized - Imaging and Cardiology Chest x-ray: report reviewed, image reviewed Assessment and Plan (1) Coronary artery disease involving left main coronary artery Current Visit: Yes Status: Chronic Code(s): I25.10 - ATHSCL HEART DISEASE OF [place] CORONARY ARTERY W/O ANG PCTRS SNOMED Code(s): 982823951 (2) Hypertension Current Visit: Yes Status: Chronic Code(s): I10 - ESSENTIAL (PRIMARY) HYPERTENSION SNOMED Code(s): 72455751 (3) Hyperlipidemia Current Visit: Yes Status: Chronic Code(s): E78.5 - HYPERLIPIDEMIA, UNSPECIFIED SNOMED Code(s): 77565272 (4) Diabetes Current Visit: Yes Status: Chronic Code(s): E11.9 - TYPE 2 DIABETES MELLITUS WITHOUT COMPLICATIONS SNOMED Code(s): 72650738 (5) Peripheral vascular disease Current Visit: Yes Status: Chronic Code(s): I73.9 - PERIPHERAL VASCULAR DISEASE, UNSPECIFIED SNOMED Code(s): 432655412 (6) Family history of heart disease Current Visit: Yes Status: Chronic Code(s): Z82.49 - FAMILY HX OF ISCHEM HEART DIS AND OTH DIS OF THE CIRC SYS SNOMED Code(s): 661049848 (7) Tobacco dependence in remission Current Visit: No Status: Resolved Code(s): F17.201 - NICOTINE DEPENDENCE, UNSPECIFIED, IN REMISSION SNOMED Code(s): 424507822 (8) Hypothyroid Current Visit: Yes Status: Chronic Code(s): E03.9 - HYPOTHYROIDISM, UNSPECIFIED SNOMED Code(s): 36211251 (9) Syncopal episodes Current Visit: No Status: Chronic Code(s): R55 - SYNCOPE AND COLLAPSE SNOMED Code(s): 185026396 (10) History of DVT (deep vein thrombosis) Current Visit: No Status: Resolved Code(s): Z86.718 - PERSONAL HISTORY OF OTHER VENOUS THROMBOSIS AND EMBOLISM SNOMED Code(s): 357632295 (11) History of atrial fibrillation Current Visit: No Status: Resolved Code(s): Z86.79 - PERSONAL HISTORY OF OTHER DISEASES OF THE CIRCULATORY SYSTEM SNOMED Code(s): 194556882 (12) Chronic low back pain Current Visit: Yes Status: Chronic Code(s): M54.5 - LOW BACK PAIN; G89.29 - OTHER CHRONIC PAIN SNOMED Code(s): 620501407 (13) Depression Current Visit: Yes Status: Chronic Code(s): F32.9 - MAJOR DEPRESSIVE DISORDER, SINGLE EPISODE, UNSPECIFIED SNOMED Code(s): 49811321 Plan: 1. Continue aspirin, Plavix, statin, beta sheree. Will increase beta sheree therapy as tolerated. 2. Wean O2 as tolerated. Encourage incentive spirometry use 10 times every hour. Patient needs much encouragement to cough and deep breathe. 3. Increase activity, ambulate as tolerated. PT/OT/cardiac rehab following. 4. Continue amiodarone for A. fib prophylaxis. 5. Continue Zosyn, vancomycin. Dr. Mccartney from infectious disease consult, appreciate recommendations. Will follow cultures. 6. Monitor daily labs, chest x-rays. 7. GI/DVT prophylaxis. 8. Pain control with current medication regimen. Minimize narcotic usage, utilize IV Tylenol and IV Toradol. 9. Bronchodilators per pulmonology. 10. Insulin/diabetic management per Dr. Yousif. 11. Continue neuro checks. 12. More recommendations to follow. Patient will need rehab at discharge. Will order Dr. Medrano consult once PT and OT have evaluated the patient. Time with Patient: Greater than 30
[2017-12-14] MEDS: METOPROLOL TARTRATE 12.5 MG TAB PO SCH ×2 (10:38→19:59)
[2017-12-14 11:23] LABS: Glucose,Whole Blood 207 mg/dL (75-99)
--- NOTE | 2017-12-14 11:31 | P.PN ---
Subjective Progress Note Date: 12/14/17 Principal diagnosis: Coronary artery disease. Status post coronary artery bypass grafting. Mrs. Sellers is a 72-year-old white female patient of Dr. Alcala who was undergoing cardiac evaluation for clearance for her upcoming right rotator cuff repair, was found to have inferoseptal ischemia on the nuclear stress test. Cardiac catheterization showed left main disease of 60-70%, extending into the proximal circumflex, mid LAD of 70%, and 70% ostial lesion of the left circumflex, and no significant right coronary artery disease. She was recommended surgical intervention for which she is scheduled on Monday, on 12/11. Past medical history is positive for diabetes mellitus type 2, hypertension, hyperlipidemia, hypothyroidism, peripheral vascular disease status post right fem-pop bypass, previous nicotine dependence, quit smoking 10 years ago, carries [id number] smoking history, DVT with previous Coumadin use , paroxysmal atrial fibrillation, chronic back pain, obesity and depression. Patient had a spirometry PFT in November 2016 which showed FEV1 of 109%. We are seeing this patient in consultation for pulmonary management for the upcoming coronary artery bypass grafting surgery. Patient is seen today 12/14/2017 in follow-up on the selective care unit. She is now status post coronary artery bypass grafting including a CHARLES sequentially to the diagonal artery and LAD, reverse saphenous vein grafts to the first obtuse marginal and third obtuse marginal arteries. She is postoperative day #3. She is awake and alert in no acute distress. She is doing quite well. She denies any worsening shortness of breath, cough or congestion. She is working well with the incentive spirometer. Continue good O2 saturations in the high 90s on 3 L/m per nasal cannula. Chest x-ray reveals minimal pulmonary vascular congestion and some basilar atelectasis. White count 17.7. Hemoglobin 7.8. Creatinine 0.71. Objective - Vital Signs Vital signs: Vital Signs Temp 98 F 12/14/17 08:00 Pulse 82 12/14/17 08:07 Resp 18 12/14/17 08:00 BP 98/55 12/14/17 08:00 Pulse Ox 98 12/14/17 08:00 Intake & Output 12/13/17 12/14/17 12/14/17 18:59 06:59 18:59 Intake Total 670 710 Output Total 321 200 Balance 349 510 Weight 89.5 kg Intake: IV 670 Albumin Human 5% 250 ml 500 In Empty Bag 1 bag @ 250 mls/hr IVPB Q1HR PRN Rx#: [id number] Pressure Bags 30 Sodium Chloride 0.9% 500 140 ml @ 20 mls/hr IV .Q24H [facility] Rx#:[id number] Intake, IV Titration 710 Amount Piperacillin-Tazobactam 3 50 .375 gm In Dextrose/Water 1 50ml.bag @ 12.5 mls/hr IVPB Q6HR [facility] Rx#: [id number] Sodium Chloride 0.9% 500 160 ml @ 20 mls/hr IV .Q24H [facility] Rx#:[id number] Vancomycin 1,750 mg In 500 Sodium Chloride 0.9% 500 ml @ 167 mls/hr IVPB ONCE ONE Rx#:[id number] Output: Chest Tube Drainage 76 Chest Tube Mediastinal 40 Left Pleural 36 Drainage 5 Left Lower Leg MASTER 5 Urine 240 200 Other: Voiding Method Indwelling Catheter Bedpan # Voids 1 ABP, PAP, CO, CI - Last Documented Arterial Blood Pressure 122/59 Pulmonary Artery Pressure 4/4 Cardiac Output 4.5 Cardiac Index 2.5 - Exam - Constitutional General appearance: Present: cooperative, no acute distress, obese - Respiratory Details: Lungs sounds clear bilaterally. Respirations even, nonlabored. Currently on room air with oxygen saturation 98%. Able to achieve 5415-1569 mL on her incentive spirometry. Effective cough. - Cardiovascular Details: S1, S2 present. Regular rate and rhythm, sinus rhythm on telemetry. Palpable peripheral pulses bilaterally. No edema present. No calf pain or tenderness noted. - Gastrointestinal Gastrointestinal Comment(s): Abdomen soft, nontender, nondistended. Active bowel sounds 4 quadrants. Tolerating diet. - Genitourinary Genitourinary Comment(s): Continues to void clear, yellow urine. - Integumentary Integumentary Comment(s): Skin is warm and dry with evidence of good perfusion. Left groin soft, nontender, no drainage. - Neurologic Neurologic: Present: CNII-XII intact - Musculoskeletal Musculoskeletal Comment(s): Walks with cane. Musculoskeletal: Present: gait normal, strength equal bilaterally - Psychiatric Psychiatric: Present: A&O x's 3, appropriate affect, intact judgment & insight - Labs CBC & Chem 7: 12/14/17 05:41 12/14/17 05:41 Labs: Abnormal Lab Results - Last 24 Hours (Table) 12/13/17 12/13/17 12/13/17 Range/Units 12:07 15:26 17:16 WBC (3.8-10.6) k/uL RBC (3.80-5.40) m/uL Hgb (11.4-16.0) gm/dL Hct (34.0-46.0) % Neutrophils # (1.3-7.7) k/uL Lymphocytes # (1.0-4.8) k/uL Sodium (137-145) mmol/L Carbon Dioxide (22-30) mmol/L BUN (7-17) mg/dL Glucose (74-99) mg/dL POC Glucose (mg/dL) 162 H 204 H 180 H (75-99) mg/dL Plasma Lactic Acid Frederick (0.7-2.0) mmol/L AST (14-36) U/L ALT (9-52) U/L Alkaline Phosphatase (38-126) U/L Total Protein (6.3-8.2) g/dL Albumin (3.5-5.0) g/dL 12/13/17 12/13/17 12/13/17 Range/Units 20:57 21:33 22:12 WBC (3.8-10.6) k/uL RBC (3.80-5.40) m/uL Hgb (11.4-16.0) gm/dL Hct (34.0-46.0) % Neutrophils # (1.3-7.7) k/uL Lymphocytes # (1.0-4.8) k/uL Sodium (137-145) mmol/L Carbon Dioxide (22-30) mmol/L BUN (7-17) mg/dL Glucose (74-99) mg/dL POC Glucose (mg/dL) 152 H 170 H (75-99) mg/dL Plasma Lactic Acid Frederick 2.8 H* (0.7-2.0) mmol/L AST (14-36) U/L ALT (9-52) U/L Alkaline Phosphatase (38-126) U/L Total Protein (6.3-8.2) g/dL Albumin (3.5-5.0) g/dL 12/14/17 12/14/17 12/14/17 Range/Units 05:41 05:41 05:58 WBC 17.7 H (3.8-10.6) k/uL RBC 2.80 L (3.80-5.40) m/uL Hgb 7.8 L D (11.4-16.0) gm/dL Hct 23.4 L (34.0-46.0) % Neutrophils # 16.2 H (1.3-7.7) k/uL Lymphocytes # 0.6 L (1.0-4.8) k/uL Sodium 132 L (137-145) mmol/L Carbon Dioxide 19 L (22-30) mmol/L BUN 21 H (7-17) mg/dL Glucose 174 H (74-99) mg/dL POC Glucose (mg/dL) 188 H (75-99) mg/dL Plasma Lactic Acid Frederick (0.7-2.0) mmol/L AST 78 H (14-36) U/L ALT 59 H (9-52) U/L Alkaline Phosphatase 135 H (38-126) U/L Total Protein 4.6 L (6.3-8.2) g/dL Albumin 2.6 L (3.5-5.0) g/dL 12/14/17 Range/Units 11:16 WBC (3.8-10.6) k/uL RBC (3.80-5.40) m/uL Hgb (11.4-16.0) gm/dL Hct (34.0-46.0) % Neutrophils # (1.3-7.7) k/uL Lymphocytes # (1.0-4.8) k/uL Sodium (137-145) mmol/L Carbon Dioxide (22-30) mmol/L BUN (7-17) mg/dL Glucose (74-99) mg/dL POC Glucose (mg/dL) 207 H (75-99) mg/dL Plasma Lactic Acid Frederick (0.7-2.0) mmol/L AST (14-36) U/L ALT (9-52) U/L Alkaline Phosphatase (38-126) U/L Total Protein (6.3-8.2) g/dL Albumin (3.5-5.0) g/dL Microbiology - Last 24 Hours (Table) 12/12/17 17:00 Urine Culture - Final Urine,Catheterized Assessment and Plan Assessment: Impression: #1. Multivessel coronary artery disease, involving left main coronary artery. Status post coronary artery bypass grafting. Postoperative day #3. #2. Urinary tract infection secondary to E. coli, follow-up culture negative #3. Hyperlipidemia #4. Diabetes mellitus 2 #5. Obesity #6. Peripheral vascular disease #7. History of nicotine dependence, currently in remission, quit 10 years ago, carries [id number] smoking history #8. Hypothyroidism #9. Paroxysmal atrial fibrillation, currently in sinus rhythm #10. Chronic low back pain #11. Depression Plan: The patient was seen and evaluated by Dr. Griffin. Chest x-ray and labs were reviewed. She is doing well. She continues working well with the incentive spirometer. No pulmonary complaints. Increase her activity as tolerated. We' ll continue to follow. I, the cosigning physician, performed a history & physical examination of the patient. Lungs sounds faint crackles in the bases. Maintaining good O2 saturations in the 90s on room air. I discussed the assessment and plan of care with my nurse practitioner, Anne Marie Javed. I attest to the above note as dictated by her.
[2017-12-14] MEDS: VANCOMYCIN 1,500 MG in SODIUM CHLORIDE 0.9% 250 ML IVPB SCH ×2 (12:12→21:17)
--- NOTE | 2017-12-14 12:50 | P.CONS ---
History of Present Illness - Reason for Consult Consult date: 12/14/17 Infection - History of Present Illness This is a 72-year-old female patient who initially underwent a stress test that was positive followed by a heart catheterization that showed significant disease in the left main, mid LAD and ostial circumflex. She then underwent an urgent CABG 4 vessel on December 11. Patient seems to have been recovering well until yesterday. She was noted to develop a fever of 102.6, lactic acid was 2.3 and also liver enzymes elevated. She had been treated for E. coli urinary tract infection that was present on admission with Rocephin. Her antibiotics were then changed to Zosyn and vancomycin. Patient also had some hypersomnolence and confusion yesterday for which her narcotics were changed from oxycodone which she chronically takes for back pain and switched to Ollie every 6, IV Tylenol and Toradol and patient continues to have significant back pain. She denies chest pain, shortness of breath, nausea or vomiting. She denies any diarrhea. She does have decreased appetite which is been going on since admission. She states that she feels better from yesterday and recognizes that she was lethargic yesterday. Today. she has been up for shower and has had a bowel movement. Patient had low urine output yesterday and received a dose of Lasix. She had a CAT scan of the brain that showed cerebral atrophy and chronic small vessel ischemia. No acute intracranial process. She states that she was coughing a lot this morning but no denies shortness of breath. Chest x-ray from this morning shows minimal pulmonary vascular congestion cannot be exaggerated by low lung volumes in addition to persistent unchanged retrocardiac airspace disease, likely atelectasis and trace pleural effusions. Patient was using incentive spirometer 2000 mL she yesterday. She has had no significant wound concerns. Chest tubes and [place] are out. Patient denies any burning or pain with urination. Review of Systems All systems: negative Constitutional: Reports fatigue, Reports poor appetite, Reports weakness, Denies chills, Denies fever Eyes: denies blurred vision, denies pain Ears, nose, mouth and throat: Denies headache, Denies mouth pain, Denies sore throat Cardiovascular: Denies chest pain, Denies shortness of breath, Denies syncope Respiratory: Reports cough, Denies cough with sputum, Denies dyspnea, Denies excessive sputum, Denies hemoptysis, Denies home oxygen, Denies wheezing Gastrointestinal: Reports loss of appetite, Denies abdominal pain, Denies diarrhea, Denies nausea, Denies vomiting Genitourinary: Denies dysuria, Denies hematuria, Denies urgency, Denies urinary frequency Musculoskeletal: Denies myalgias Integumentary: Denies pruritus, Denies rash Neurological: Denies numbness, Denies weakness Psychiatric: Denies anxiety, Denies depression Endocrine: Denies fatigue, Denies weight change Past Medical History Past Medical History: Atrial Fibrillation, Coronary Artery Disease (CAD), Diabetes Mellitus, Hyperlipidemia, Hypertension, Osteoarthritis (OA), Thyroid Disorder, Vascular Disorder Additional Past Medical History / Comment(s): Pt. states poor circulation in RLE due to an artificial bypass. SOB, dizzy spells @ times. See Dr. Blackmon' s H & P. Chronic back pain, bilateral shoulder problems. History of Any Multi-Drug Resistant Organisms: None Reported Past Surgical History: Appendectomy, Breast Surgery, Cholecystectomy, Orthopedic Surgery Additional Past Surgical History / Comment(s): Femoral popliteal bypass. Bilateral knee replacements. Left breast surgery for benign tumor. Epidurals to lower back. Past Anesthesia/Blood Transfusion Reactions: No Reported Reaction Past Psychological History: Anxiety, Depression Smoking Status: Former smoker Past Alcohol Use History: Rare Additional Past Alcohol Use History / Comment(s): Quit smoking in 2007, smoked 1 PPD x 42 yrs. patient was at home with her . Past Drug Use History: None Reported - Past Family History Mother Family Medical History: Cancer Additional Family Medical History / Comment(s): Uterine cancer. Medications and Allergies Home Medications Medication Instructions Recorded Confirmed Type Aspirin 81 mg PO HS 12/31/15 12/08/17 History Cilostazol [Pletal] 100 mg PO BID 12/31/15 12/08/17 History DULoxetine HCL [Cymbalta] 60 mg PO DAILY 12/14/16 12/08/17 History Ergocalciferol (Vitamin D2) 50,000 unit PO TUFR 12/14/16 12/08/17 History [Vitamin D2] Levothyroxine Sodium [Synthroid] 75 mcg PO DAILY 12/14/16 12/08/17 History Olmesartan/Hydrochlorothiazide 1 tab PO DAILY 12/14/16 12/08/17 History [Benicar Hct 40-25 mg Tablet] Rosuvastatin [Crestor] 20 mg PO HS 12/14/16 12/08/17 History Ibuprofen [Motrin] 800 mg PO BID 11/21/17 12/08/17 History Cyanocobalamin [Vitamin B-12] 500 mcg PO DAILY 12/04/17 12/08/17 History metFORMIN HCL [Glucophage] 500 mg PO BID 12/04/17 12/08/17 History oxyCODONE HCL [OxyCONTIN] 30 mg PO TID 12/04/17 12/08/17 History Allergies Allergy/AdvReac Type Severity Reaction Status Date / Time No Known Allergies Allergy Verified 12/08/17 06:38 Physical Exam Vitals: Vital Signs Temp Pulse Pulse Resp BP BP Pulse Ox 12/14/17 08:07 82 12/14/17 08:00 98 F 97 18 98/55 98 12/14/17 07:57 76 12/14/17 04:00 99.3 F 88 18 106/52 95 12/14/17 01:30 98.6 F 12/14/17 00:00 99.5 F 97 18 99/68 95 12/13/17 22:30 101.8 F H 12/13/17 22:00 102.6 F H 12/13/17 20:00 97.1 F L 98 18 103/60 97 12/13/17 16:00 98.3 F 98 20 109/53 96 12/13/17 15:45 99 16 12/13/17 15:31 95 16 12/13/17 15:00 98 17 93 L 12/13/17 14:00 104 H 18 95 12/13/17 13:00 103 H 19 125/58 94 L 12/13/17 12:00 99.5 F 99 19 122/61 97 Intake and Output 12/13/17 12/14/17 12/14/17 22:59 06:59 14:59 Intake Total 710 Output Total 60 200 Balance -60 510 Intake: Intake, IV Titration 710 Amount Piperacillin-Tazobactam 3 50 .375 gm In Dextrose/Water 1 50ml.bag @ 12.5 mls/hr IVPB Q6HR WILLIAM Rx#: [id number] Sodium Chloride 0.9% 500 160 ml @ 20 mls/hr IV .Q24H WILLIAM Rx#:[id number] Vancomycin 1,750 mg In 500 Sodium Chloride 0.9% 500 ml @ 167 mls/hr IVPB ONCE ONE Rx#:[id number] Output: Urine 60 200 Other: Voiding Method Bedpan Bedpan # Voids 1 Weight 89.5 kg Gen: This is a 72-year-old female. She is sitting up in a chair at the bedside and appears to be somewhat uncomfortable. Patient is complaining of significant left sided back pain into her buttocks. HEENT: Head is atraumatic, normocephalic. Pupils equal, round. Sclerae is anicteric. Mucous members of the mouth are moist. NECK: Supple. No JVD. No lymphadenopathy. No thyromegaly. LUNGS: Clear to auscultation. No wheezes or rhonchi. No intercostal retractions. HEART: Regular rate and rhythm. No murmur. Sternal wound is intact. No significant drainage, erythema. ABDOMEN: Soft. Bowel sounds are present. No masses. No tenderness. EXTREMITIES: No pedal edema. Wound and left lower extremity shows no signs of infection. No drainage, significant erythema or edema. NEUROLOGICAL: Patient is awake, alert and oriented x3. Cranial nerves 2 through 12 are grossly intact. Results Results: Laboratory Results WBC 17.7 k/uL (3.8-10.6) H 12/14/17 05:41 RBC 2.80 m/uL (3.80-5.40) L 12/14/17 05:41 Hgb 7.8 gm/dL (11.4-16.0) L D 12/14/17 05:41 Hct 23.4 % (34.0-46.0) L 12/14/17 05:41 MCV 83.8 fL (80.0-100.0) 12/14/17 05:41 MCH 28.0 pg (25.0-35.0) 12/14/17 05:41 MCHC 33.5 g/dL (31.0-37.0) 12/14/17 05:41 RDW 15.4 % (11.5-15.5) 12/14/17 05:41 Plt Count 209 k/uL (150-450) 12/14/17 05:41 Neutrophils % 92 % 12/14/17 05:41 Neutrophils % (Manual) 82 % 12/11/17 16:55 Band Neutrophils % 7 % 12/11/17 16:55 Lymphocytes % 3 % 12/14/17 05:41 Lymphocytes % (Manual) 6 % 12/11/17 16:55 Monocytes % 4 % 12/14/17 05:41 Monocytes % (Manual) 5 % 12/11/17 16:55 Eosinophils % 0 % 12/14/17 05:41 Basophils % 0 % 12/14/17 05:41 Metamyelocytes % 1 % 12/11/17 16:55 Myelocytes % 1 % 12/11/17 16:55 Neutrophils # 16.2 k/uL (1.3-7.7) H 12/14/17 05:41 Neutrophils # (Manual) 23.20 k/uL (1.3-7.7) H 12/11/17 16:55 Lymphocytes # 0.6 k/uL (1.0-4.8) L 12/14/17 05:41 Lymphocytes # (Manual) 1.57 k/uL (1.0-4.8) 12/11/17 16:55 Monocytes # 0.6 k/uL (0-1.0) 12/14/17 05:41 Monocytes # (Manual) 1.31 k/uL (0-1.0) H 12/11/17 16:55 Eosinophils # 0.1 k/uL (0-0.7) 12/14/17 05:41 Basophils # 0.0 k/uL (0-0.2) 12/14/17 05:41 Metamyelocytes # (Man) 0.26 k/uL (0) H 12/11/17 16:55 Myelocytes # (Manual) 0.26 k/uL (0) H 12/11/17 16:55 Nucleated RBCs 0 /100 WBC (0-0) 12/11/17 16:55 Manual Slide Review Performed 12/11/17 16:55 RBC Morphology Normal 12/11/17 16:55 PT 10.1 sec (9.0-12.0) 12/12/17 04:00 INR 1.0 (<1.2) 12/12/17 04:00 APTT 22.5 sec (22.0-30.0) 12/12/17 04:00 Sample Site [place] 12/11/17 17:34 ABG pH 7.38 (7.35-7.45) 12/11/17 17:34 ABG pCO2 43 mmHg (35-45) 12/11/17 17:34 ABG pO2 89 mmHg (83-108) 12/11/17 17:34 ABG HCO3 25 mmol/L (21-25) 12/11/17 17:34 ABG Total CO2 27 mmol/L (19-24) H 12/11/17 12:13 ABG O2 Saturation 97.0 % (94-97) 12/11/17 17:34 ABG Base Excess 0.2 mmol/L 12/11/17 17:34 ABG Hematocrit 20 % (34.0-46.0) L* 12/11/17 12:13 [place] Test Yes 12/11/17 17:34 ABG Sodium 136 mmol/L (135-146) 12/11/17 12:13 ABG Potassium 4.4 mmol/L (3.4-4.5) 12/11/17 12:13 ABG Ionized Calcium 4.2 mg/dL (4.5-5.3) L 12/11/17 12:13 ABG Glucose 204 mg/dL (75-99) H 12/11/17 12:13 ABG Lactic Acid 2.0 mmol/L (0.5-1.6) H 12/11/17 12:13 Hemoglobin 6.4 gm/dL (11.4-16.0) L* 12/11/17 12:13 FiO2 50 % 12/11/17 17:34 Sodium 132 mmol/L (137-145) L 12/14/17 05:41 Potassium 4.1 mmol/L (3.5-5.1) 12/14/17 05:41 Chloride 102 mmol/L (98-107) 12/14/17 05:41 Carbon Dioxide 19 mmol/L (22-30) L 12/14/17 05:41 Anion Gap 11 mmol/L 12/14/17 05:41 BUN 21 mg/dL (7-17) H 12/14/17 05:41 Creatinine 0.71 mg/dL (0.52-1.04) 12/14/17 05:41 Est GFR (CKD-EPI)AfAm >90 (>60 ml/min/1.73 sqM) 12/14/17 05:41 Est GFR (CKD-EPI)NonAf 87 (>60 ml/min/1.73 sqM) 12/14/17 05:41 Glucose 174 mg/dL (74-99) H 12/14/17 05:41 POC Glucose (mg/dL) 207 mg/dL (75-99) H 12/14/17 11:16 POC Glu Political Science Research Assistant ID Patience [place] 12/14/17 11:[address] Glu mg/dL 186 12/08/17 06:55 Hemoglobin A1c 8.1 % (4.0-6.0) H 12/08/17 06:55 Lactic Ac Sepsis Rflx Y 12/13/17 23:03 Plasma Lactic Acid [place] 1.3 mmol/L (0.7-2.0) 12/14/17 02:32 Calcium 8.5 mg/dL (8.4-10.2) 12/14/17 05:41 Ionized Calcium [place] 5.0 mg/dL (4.5-5.3) 12/13/17 04:10 Magnesium 2.0 mg/dL (1.6-2.3) 12/13/17 04:10 Total Bilirubin 1.0 mg/dL (0.2-1.3) 12/14/17 05:41 AST 78 U/L (14-36) H 12/14/17 05:41 ALT 59 U/L (9-52) H 12/14/17 05:41 Alkaline Phosphatase 135 U/L (38-126) H 12/14/17 05:41 Total Protein 4.6 g/dL (6.3-8.2) L 12/14/17 05:41 Albumin 2.6 g/dL (3.5-5.0) L 12/14/17 05:41 Triglycerides 89 mg/dL (<150) 12/08/17 06:55 Cholesterol 129 mg/dL (<200) 12/08/17 06:55 LDL Cholesterol, Calc 45 mg/dL (0-99) 12/08/17 06:55 HDL Cholesterol 66 mg/dL (40-60) H 12/08/17 06:55 TSH 2.940 mIU/L (0.465-4.680) 12/08/17 06:55 Arterial Blood Potassium 4.4 mmol/L (3.4-4.5) 12/11/17 12:13 Arterial Blood Glucose 204 mg/dL (75-99) H 12/11/17 12:13 Urine Color Yellow 12/08/17 12:00 Urine Appearance Cloudy (Clear) H 12/08/17 12:00 Urine pH 7.5 (5.0-8.0) 12/08/17 12:00 Ur Specific [place] 1.044 (1.001-1.035) H 12/08/17 12:00 Urine Protein Negative (Negative) 12/08/17 12:00 Urine Glucose (UA) Negative (Negative) 12/08/17 12:00 Urine Ketones Negative (Negative) 12/08/17 12:00 Urine Blood Moderate (Negative) H 12/08/17 12:00 Urine Nitrite Negative (Negative) 12/08/17 12:00 Urine Bilirubin Negative (Negative) 12/08/17 12:00 Urine Urobilinogen <2.0 mg/dL (<2.0) 12/08/17 12:00 Ur Leukocyte Esterase Small (Negative) H 12/08/17 12:00 Urine RBC 2 /hpf (0-5) 12/08/17 12:00 Urine WBC 3 /hpf (0-5) 12/08/17 12:00 Ur Squamous Epith Cells 1 /hpf (0-4) 12/08/17 12:00 Urine Bacteria Occasional /hpf (None) H 12/08/17 12:00 Urine Mucus Rare /hpf (None) H 12/08/17 12:00 Hepatitis A IgM Ab Non-Reactive (Non-Reactive) 12/08/17 06:55 Hep Bs Antigen Non-Reactive (Non-Reactive) 12/08/17 06:55 Hep B Core IgM Ab Non-Reactive (Non-Reactive) 12/08/17 06:55 Hep C IgG Ab Non-Reactive (Non-Reactive) 12/08/17 06:55 Blood Type B Positive 12/10/17 05:38 Blood Type Confirm B Positive 12/10/17 10:21 Blood Type Recheck CABO Indicated 12/10/17 05:38 Antibody Screen NEGATIVE 12/10/17 05:38 Crossmatch See Detail 12/10/17 05:38 Transfuse Platelets 12/11/17 12/10/17 05:38 Spec Expiration Date 12/13/2017 - 233712/10/17 05:38 CBC & Chem 7: 12/14/17 05:41 12/14/17 05:41 Labs: Abnormal Lab Results - Last 24 Hours (Table) 12/13/17 12/13/17 12/13/17 Range/Units 12:07 15:26 17:16 WBC (3.8-10.6) k/uL RBC (3.80-5.40) m/uL Hgb (11.4-16.0) gm/dL Hct (34.0-46.0) % Neutrophils # (1.3-7.7) k/uL Lymphocytes # (1.0-4.8) k/uL Sodium (137-145) mmol/L Carbon Dioxide (22-30) mmol/L BUN (7-17) mg/dL Glucose (74-99) mg/dL POC Glucose (mg/dL) 162 H 204 H 180 H (75-99) mg/dL Plasma Lactic Acid [place] (0.7-2.0) mmol/L AST (14-36) U/L ALT (9-52) U/L Alkaline Phosphatase (38-126) U/L Total Protein (6.3-8.2) g/dL Albumin (3.5-5.0) g/dL 12/13/17 12/13/17 12/13/17 Range/Units 20:57 21:33 22:12 WBC (3.8-10.6) k/uL RBC (3.80-5.40) m/uL Hgb (11.4-16.0) gm/dL Hct (34.0-46.0) % Neutrophils # (1.3-7.7) k/uL Lymphocytes # (1.0-4.8) k/uL Sodium (137-145) mmol/L Carbon Dioxide (22-30) mmol/L BUN (7-17) mg/dL Glucose (74-99) mg/dL POC Glucose (mg/dL) 152 H 170 H (75-99) mg/dL Plasma Lactic Acid [place] 2.8 H* (0.7-2.0) mmol/L AST (14-36) U/L ALT (9-52) U/L Alkaline Phosphatase (38-126) U/L Total Protein (6.3-8.2) g/dL Albumin (3.5-5.0) g/dL 12/14/17 12/14/17 12/14/17 Range/Units 05:41 05:41 05:58 WBC 17.7 H (3.8-10.6) k/uL RBC 2.80 L (3.80-5.40) m/uL Hgb 7.8 L D (11.4-16.0) gm/dL Hct 23.4 L (34.0-46.0) % Neutrophils # 16.2 H (1.3-7.7) k/uL Lymphocytes # 0.6 L (1.0-4.8) k/uL Sodium 132 L (137-145) mmol/L Carbon Dioxide 19 L (22-30) mmol/L BUN 21 H (7-17) mg/dL Glucose 174 H (74-99) mg/dL POC Glucose (mg/dL) 188 H (75-99) mg/dL Plasma Lactic Acid Frederick (0.7-2.0) mmol/L AST 78 H (14-36) U/L ALT 59 H (9-52) U/L Alkaline Phosphatase 135 H (38-126) U/L Total Protein 4.6 L (6.3-8.2) g/dL Albumin 2.6 L (3.5-5.0) g/dL 12/14/17 Range/Units 11:16 WBC (3.8-10.6) k/uL RBC (3.80-5.40) m/uL Hgb (11.4-16.0) gm/dL Hct (34.0-46.0) % Neutrophils # (1.3-7.7) k/uL Lymphocytes # (1.0-4.8) k/uL Sodium (137-145) mmol/L Carbon Dioxide (22-30) mmol/L BUN (7-17) mg/dL Glucose (74-99) mg/dL POC Glucose (mg/dL) 207 H (75-99) mg/dL Plasma Lactic Acid Frederick (0.7-2.0) mmol/L AST (14-36) U/L ALT (9-52) U/L Alkaline Phosphatase (38-126) U/L Total Protein (6.3-8.2) g/dL Albumin (3.5-5.0) g/dL Microbiology - Last 24 Hours (Table) 12/12/17 17:00 Urine Culture - Final Urine,Catheterized Assessment and Plan Plan: Physical 72-year-old female who is status post four-vessel urgent CABG and developed signs of SIRS with lactic acidosis status post IV fluid resuscitation with improvement of her symptoms. Yesterday, she was also taken off oxycodone which she is chronically on for low back pain. She is complaining of significant back pain today that is not controlled with current regime. Her mental status is back to baseline. White count seems to be improving as well as fever. She is currently on IV antibiotics in the form of Zosyn and vancomycin which will be continued for now. Continue supportive care. Further recommendations as patient progresses. The above dictated assessment and findings were discussed with Dr. Mccartney. The impression and plan of care have been directed as dictated. Amna Obrien nurse practitioner acting as scribe for Dr. Mccartney.
[2017-12-14 14:26] LABS: Amylase <30 U/L (30-110); Lipase 26 U/L (23-300)
--- NOTE | 2017-12-14 15:25 | CT ---
EXAMINATION TYPE: CT abdomen wo con DATE OF EXAM: 12/14/2017 COMPARISON: None HISTORY: Upper Abdominal pain with Abnormal labs CT DLP: 793.8 mGycm Examination of the solid and hollow viscera is limited given the lack of contrast. FINDINGS: LUNG BASES: No evidence for nodule. No evidence for infiltrate. Small bilateral pleural effusions not ed. LIVER/GB: Cholecystectomy clips clips are in place. No space-occupying hepatic lesion. PANCREAS: No pancreatic mass identified. No inflammatory process seen. SPLEEN: No evidence for splenomegaly. No intrasplenic lesions seen. Splenic granulomas noted. ADRENALS: No adrenal nodules identified. No evidence for thickening. KIDNEYS: No evidence for renal mass. No nephrolithiasis. No hydronephrosis. BOWEL: Non-imaging of the pelvic bowel loops. Mild wall thickening and pericolonic stranding right he micolon at the level of the cecum may reflect nonspecific colitis. Correlate clinically. Differential diagnostic possibilities include infectious, inflammatory or vascular etiologies. Mild colonic diste ntion measuring up to 6.2 cm. Fluid debris within the colon lumen. Lymph nodes: No evidence for adenopathy greater than 1 cm. Abdominal aorta: Atheromatous changes seen. No evidence for aneurysm. Other: No significant abnormality. IMPRESSION: 1. Mild wall thickening and pericolonic stranding right hemicolon at the level of the cecum may refle ct nonspecific colitis.
[2017-12-14 16:08] LABS: Amylase <30 U/L (30-110); Lipase 25 U/L (23-300)
--- NOTE | 2017-12-14 16:12 | PN ---
PROGRESS NOTE DATE OF SERVICE: 12/14/2017 This 72-year-old woman was admitted after CABG, had some change in mental status yesterday. The CT scan and other workup initiated subacute stroke. The patient is taking some pain medications including Xanax and OxyContin. The patient is closely monitored at this time. White count is elevated. Patient started on empiric antibiotics. Infection Disease is following the patient closely. PAST MEDICAL HISTORY: Reviewed. REVIEW OF SYSTEMS: Cardiovascular: No angina or palpitations. Respiration: As mentioned earlier. GI: As mentioned earlier. : No numbness or weakness. CENTRAL NERVOUS SYSTEM: No numbness or weakness. CURRENT MEDICATIONS: Reviewed and include: 1. Tylenol p.r.n. 2. [place] 5 mg q.6h p.r.n. 3. DuoNeb q.i.d. and p.r.n. 4. Cordarone 400 mg p.o. b.i.d. 5. Aspirin 320 mg. 6. Lipitor 40 mg daily. 8. Plavix 75 mg daily. 9. Vitamin B12. 10.Cymbalta. 11.Heparin subcu q.8h. 12.Toradol 15 mg q.6h. 13.Synthroid. 14.Milk of magnesia. 15.Lopressor 12.5 mg b.i.d. 16.Magnesium. 18.Potassium protocol. 19.Zofran p.r.n. 20.Protonix 40 mg p.o. b.i.d. 21.Zosyn 3.375 IV q.6h. 22.Senna. 23.Vancomycin IV. PHYSICAL EXAM: Patient is alert, oriented x3. Pulse is 93, blood pressure 97/56, respiration 18, temperature 97.6, pulse ox 98% on room air. HEENT: Conjunctivae normal. Oral mucosa moist. Neck is no jugular venous distention. No carotid bruit. No lymph node enlargement. Cardiac systems: S1, S2 muffled. RESPIRATORY: Breath sounds diminished in the bases. A few scattered rhonchi. ABDOMEN: Soft nontender. NERVOUS SYSTEM: Higher functions as mentioned earlier. Sensorium improved significantly. Moves all 4 limbs. No focal deficits. LAB STUDIES: WBC ntd, hemoglobin 7.8, and amylase is less than 30. ASSESSMENT: 1. Coronary artery disease status post coronary artery bypass grafting. 2. Atrial fibrillation. 3. Change in mental status, metabolic encephalopathy, possibly medication induced. 4. Increased WBC on empiric antibiotics. 5. Coronary artery disease. 6. Diabetes mellitus type 2. 7. Increased LFTs. 8. Hypertension. 9. Hyperlipidemia. 10.History of degenerative joint disease. 11.Hypothyroidism. 12.History of possible allergic rhinitis. 13.History of nicotine dependence. 14.Increased WBC. 15.Anxiety/depression. 16.Urinary tract infection with E coli, present on admission. RECOMMENDATIONS AND DISCUSSION: I recommend to continue current medications, management and symptomatic treatment. Otherwise, at this time, I recommend to continue current medications. Hold off the pain medications and continue the neuro checks. Incentive spirometry. Increase ambulation. The rest of the recommendations per Cardiothoracic Surgery. Further recommendations to follow. MMODL / IJN: [id number] / RAO
--- NOTE | 2017-12-14 16:27 | P.CONS ---
History of Present Illness - Chief Complaint Cardiac debility - History of Present Illness I had the opportunity to see patient for inpatient rehab consultation with regard to cardiac debility. She was admitted to [facility] December 08 with chest pain. Workup by Dr. Blackmon. Seen by Dr. Olvera into perform 4 vessel bypass. Seen by Dr. Salas for ICU and later care. Also seen by Dr. Mccartney. Abdominal CT demonstrates thickening of the right: Mucosa. Chest x-ray with atelectasis. Head CT with atrophy and small vessel change. PT reports moderate to maximal assistance to person bed mobility. Minimal assistance to person for transfers and gait 40 feet. OT reports moderate assistance for upper dressing and maximal assistance for lower dressing, bathing, toileting. Minimal assistance to person for functional mobility and transfer. Previous functional history as elicited from patient: 72-year-old right-handed white female who is and lives and 2 floor home with . Both are retired. They share the cooking. does the driving because of patient' s right shoulder, since June. Patient describes independent laundry, standing shower and gait with standard cane out of house. Dr. Alcala his regular doctor. History smoking but doesn't smoke or drink currently. Family history both parents with cardiac disease. Review of Systems Review of systems: ENT: Denies sneezes or discharge. Eyes: Denies discharge or photophobia. Cardiac: Mild sternal discomfort. Pulmonary: Mild shortness of breath. Breast: Denies discharge or lumps. Gastrointestinal: Denies nausea, emesis, constipation, diarrhea. Genitourinary: Denies discharge or frequency. Musculoskeletal: Denies muscle or bone aches. Neurologic: Moderate generalized weakness. Endocrine: Denies shakes or sweats. Oncology: Denies cancers. Dermatologic: Denies rash, itching, pruritus. ALLERGY/immunology: Denies sneezes, rashes. Past Medical History Past Medical History: Atrial Fibrillation, Coronary Artery Disease (CAD), Diabetes Mellitus, Hyperlipidemia, Hypertension, Osteoarthritis (OA), Thyroid Disorder, Vascular Disorder Additional Past Medical History / Comment(s): Pt. states poor circulation in RLE due to an artificial bypass. SOB, dizzy spells @ times. See Dr. Blackmon' s H & P. Chronic back pain, bilateral shoulder problems. History of Any Multi-Drug Resistant Organisms: None Reported Past Surgical History: Appendectomy, Breast Surgery, Cholecystectomy, Orthopedic Surgery Additional Past Surgical History / Comment(s): Femoral popliteal bypass. Bilateral knee replacements. Left breast surgery for benign tumor. Epidurals to lower back. Past Anesthesia/Blood Transfusion Reactions: No Reported Reaction Past Psychological History: Anxiety, Depression Smoking Status: Former smoker Past Alcohol Use History: Rare Additional Past Alcohol Use History / Comment(s): Quit smoking in 2007, smoked 1 PPD x 42 yrs. patient was at home with her . Past Drug Use History: None Reported - Past Family History Mother Family Medical History: Cancer Additional Family Medical History / Comment(s): Uterine cancer. Medications and Allergies Home Medications Medication Instructions Recorded Confirmed Type Aspirin 81 mg PO HS 12/31/15 12/08/17 History Cilostazol [Pletal] 100 mg PO BID 12/31/15 12/08/17 History DULoxetine HCL [Cymbalta] 60 mg PO DAILY 12/14/16 12/08/17 History Ergocalciferol (Vitamin D2) 50,000 unit PO TUFR 12/14/16 12/08/17 History [Vitamin D2] Levothyroxine Sodium [Synthroid] 75 mcg PO DAILY 12/14/16 12/08/17 History Olmesartan/Hydrochlorothiazide 1 tab PO DAILY 12/14/16 12/08/17 History [Benicar Hct 40-25 mg Tablet] Rosuvastatin [Crestor] 20 mg PO HS 12/14/16 12/08/17 History Ibuprofen [Motrin] 800 mg PO BID 11/21/17 12/08/17 History Cyanocobalamin [Vitamin B-12] 500 mcg PO DAILY 12/04/17 12/08/17 History metFORMIN HCL [Glucophage] 500 mg PO BID 12/04/17 12/08/17 History oxyCODONE HCL [OxyCONTIN] 30 mg PO TID 12/04/17 12/08/17 History Allergies Allergy/AdvReac Type Severity Reaction Status Date / Time No Known Allergies Allergy Verified 12/08/17 06:38 Physical Exam Vitals: Vital Signs Temp Pulse Pulse Resp BP Pulse Ox 12/14/17 16:08 90 12/14/17 15:59 90 12/14/17 12:00 97.6 F 93 18 97/56 98 08/16/18 08:07 82 12/14/17 08:00 98 F 97 18 98/55 98 12/14/17 07:57 76 12/14/17 04:00 99.3 F 88 18 106/52 95 12/14/17 01:30 98.6 F 12/14/17 00:00 99.5 F 97 18 99/68 95 12/13/17 22:30 101.8 F H 12/13/17 22:00 102.6 F H 12/13/17 20:00 97.1 F L 98 18 103/60 97 Intake and Output 12/14/17 12/14/17 12/14/17 06:59 14:59 22:59 Intake Total 710 768 Output Total 200 Balance 510 768 Intake: Intake, IV Titration 710 650 Amount Piperacillin-Tazobactam 3 50 50 .375 gm In Dextrose/Water 1 50ml.bag @ 12.5 mls/hr IVPB Q6HR [facility] Rx#: [id number] Sodium Chloride 0.9% 1, 350 000 ml @ 50 mls/hr IV . Q20H [facility] Rx#:[id number] Sodium Chloride 0.9% 500 160 ml @ 20 mls/hr IV .Q24H [facility] Rx#:[id number] Vancomycin 1,500 mg In 250 Sodium Chloride 0.9% 250 ml @ 125 mls/hr IVPB Q12H [facility] Rx#:[id number] Vancomycin 1,750 mg In 500 Sodium Chloride 0.9% 500 ml @ 167 mls/hr IVPB ONCE ONE Rx#:[id number] Oral 118 Output: Urine 200 Other: Voiding Method Bedpan # Voids 1 1 # Bowel Movements 2 Weight 89.5 kg Skin: Atrophic, intact. General: Overweight build and comfortable appearance. Head: Normocephalic, atraumatic. Eyes: Symmetric. Pupils equal round. Ears: Symmetric. Hearing within normal limits. Mouth: Clear. Neck: Supple. Carotid without bruit. Cardiac: Regular rate and rhythm. Midline wound clean and dressed. Wearing harness. Lungs: Clear anteriorly and posteriorly. Abdomen: Soft active nontender. Overweight. Extremities: Normal tone. Overweight. Neurological: Mental status: Alert, cooperative, pleasant. Cranial nerves: Symmetric facial tone and trapezius. Motor: Demonstrates active movement all 4 limbs. Sensation: Intact throughout. DTRs: Symmetric and equal throughout. Mobility: Requires physical assistance for bed mobility. Results CBC & Chem 7: 12/14/17 05:41 12/14/17 05:41 Labs: Abnormal Lab Results - Last 24 Hours (Table) 12/13/17 12/13/17 12/13/17 Range/Units 17:16 20:57 21:33 WBC (3.8-10.6) k/uL RBC (3.80-5.40) m/uL Hgb (11.4-16.0) gm/dL Hct (34.0-46.0) % Neutrophils # (1.3-7.7) k/uL Lymphocytes # (1.0-4.8) k/uL Sodium (137-145) mmol/L Carbon Dioxide (22-30) mmol/L BUN (7-17) mg/dL Glucose (74-99) mg/dL POC Glucose (mg/dL) 180 H 152 H 170 H (75-99) mg/dL Plasma Lactic Acid Frederick (0.7-2.0) mmol/L AST (14-36) U/L ALT (9-52) U/L Alkaline Phosphatase (38-126) U/L Total Protein (6.3-8.2) g/dL Albumin (3.5-5.0) g/dL Amylase (30-110) U/L 12/13/17 12/14/17 12/14/17 Range/Units 22:12 05:41 05:41 WBC 17.7 H (3.8-10.6) k/uL RBC 2.80 L (3.80-5.40) m/uL Hgb 7.8 L D (11.4-16.0) gm/dL Hct 23.4 L (34.0-46.0) % Neutrophils # 16.2 H (1.3-7.7) k/uL Lymphocytes # 0.6 L (1.0-4.8) k/uL Sodium 132 L (137-145) mmol/L Carbon Dioxide 19 L (22-30) mmol/L BUN 21 H (7-17) mg/dL Glucose 174 H (74-99) mg/dL POC Glucose (mg/dL) (75-99) mg/dL Plasma Lactic Acid Frederick 2.8 H* (0.7-2.0) mmol/L AST 78 H (14-36) U/L ALT 59 H (9-52) U/L Alkaline Phosphatase 135 H (38-126) U/L Total Protein 4.6 L (6.3-8.2) g/dL Albumin 2.6 L (3.5-5.0) g/dL Amylase (30-110) U/L 12/14/17 12/14/17 12/14/17 Range/Units 05:41 05:58 11:16 WBC (3.8-10.6) k/uL RBC (3.80-5.40) m/uL Hgb (11.4-16.0) gm/dL Hct (34.0-46.0) % Neutrophils # (1.3-7.7) k/uL Lymphocytes # (1.0-4.8) k/uL Sodium (137-145) mmol/L Carbon Dioxide (22-30) mmol/L BUN (7-17) mg/dL Glucose (74-99) mg/dL POC Glucose (mg/dL) 188 H 207 H (75-99) mg/dL Plasma Lactic Acid Frederick (0.7-2.0) mmol/L AST (14-36) U/L ALT (9-52) U/L Alkaline Phosphatase (38-126) U/L Total Protein (6.3-8.2) g/dL Albumin (3.5-5.0) g/dL Amylase <30 L (30-110) U/L 12/14/17 Range/Units 15:37 WBC (3.8-10.6) k/uL RBC (3.80-5.40) m/uL Hgb (11.4-16.0) gm/dL Hct (34.0-46.0) % Neutrophils # (1.3-7.7) k/uL Lymphocytes # (1.0-4.8) k/uL Sodium (137-145) mmol/L Carbon Dioxide (22-30) mmol/L BUN (7-17) mg/dL Glucose (74-99) mg/dL POC Glucose (mg/dL) (75-99) mg/dL Plasma Lactic Acid Frederick (0.7-2.0) mmol/L AST (14-36) U/L ALT (9-52) U/L Alkaline Phosphatase (38-126) U/L Total Protein (6.3-8.2) g/dL Albumin (3.5-5.0) g/dL Amylase <30 L (30-110) U/L Microbiology - Last 24 Hours (Table) 12/12/17 17:00 Urine Culture - Final Urine,Catheterized Assessment and Plan (1) Coronary artery disease involving left main coronary artery Current Visit: Yes Status: Chronic Code(s): I25.10 - ATHSCL HEART DISEASE OF [place] CORONARY ARTERY W/O ANG PCTRS SNOMED Code(s): 767736716 Plan: Impression: 1. Cardiac debility. 2. Coronary artery disease with history of recent 4 vessel bypass. 3. Hypertension. 4. Disability. 5. Diabetes. 6. Chronic low back pain. 7. Overweight. 8. Active fibrillation. 9. Osteoarthritis. 10. Hypothyroid. 11. Peripheral vascular disease. Comments and plan: At this time PT and OT are ongoing. Safety concerns noted. Have discussed possible inpatient rehab with patient and she seems agreeable and hopeful for same.
[2017-12-14 16:30] LABS: Glucose,Whole Blood 157 mg/dL (75-99)
--- NOTE | 2017-12-14 16:31 | P.CON ---
Consult Note - . Consult date: 12/14/17 Assessment/Plan:: This is a 72-year-old female patient who initially underwent a stress test that was positive followed by a heart catheterization that showed significant disease in the left main, mid LAD and ostial circumflex. She then underwent an urgent CABG 4 vessel on December 11. Patient seems to have been recovering well until yesterday. She was noted to develop a fever of 102.6, lactic acid was 2.3 and also liver enzymes elevated. She had been treated for E. coli urinary tract infection that was present on admission with Rocephin. Her antibiotics were then changed to Zosyn and vancomycin. Patient also had some hypersomnolence and confusion yesterday for which her narcotics were changed from oxycodone which she chronically takes for back pain and switched to [place] every 6, IV Tylenol and Toradol and patient continues to have significant back pain. She denies chest pain, shortness of breath, nausea or vomiting. She denies any diarrhea. She does have decreased appetite which is been going on since admission. She states that she feels better from yesterday and recognizes that she was lethargic yesterday. Today. she has been up for shower and has had a bowel movement. Patient had low urine output yesterday and received a dose of Lasix. She had a CAT scan of the brain that showed cerebral atrophy and chronic small vessel ischemia. No acute intracranial process. She states that she was coughing a lot this morning but no denies shortness of breath. Chest x-ray from this morning shows minimal pulmonary vascular congestion cannot be exaggerated by low lung volumes in addition to persistent unchanged retrocardiac airspace disease, likely atelectasis and trace pleural effusions. Patient was using incentive spirometer 2000 mL she yesterday. She has had no significant wound concerns. Chest tubes and Almaguer are out. Patient denies any burning or pain with urination. Please see the consult note as dictated by HOTEL BREAKFAST ATTENDANT Pablo Amna Obrien. 72 year old woman with history of CAD failed stress test now s/p CABG and was progressing but developed fever to 102. Found to have UTI and is now improving. He doesn't history of chronic back pain been of some contention over the last day because of excess sedation from her pain medications. She currently is on minimal premedication with orders to ensure that she is at least sitting up and getting some ambulation. Her shortness of breath is definitely improved her chest is without significant pain. She does have a history of urinary tract infections in the past, since the Almaguer is out she has some minimal discomfort but does not feel miserable. She's had difficulty with incontinence since the Almaguer has been removed, bladder scan was performed with only 200 mL noted. She does have a urine culture with Escherichia coli that is resistant to quinolone therapy. With her fever the antibiotic therapy was enhance Zosyn and vancomycin. Sternal wound does not appear to be infected at the moment does not seem to have pneumonia. We'll continue with supportive care at this point in time and osteomyelitis therapy if all cultures all remain negative as before.Please see consult note as dictated by HOTEL BREAKFAST ATTENDANT Mrs. Amna Obrien.
[2017-12-14] MEDS: SENNOSIDES-DOCUSATE SODIUM 1 EACH TAB PO SCH (19:59)
[2017-12-14 20:27] LABS: Glucose,Whole Blood 183 mg/dL (75-99)
--- NOTE | 2017-12-14 21:06 | PN ---
PROGRESS NOTE This patient is status post coronary artery bypass surgery. The patient spiked a temperature of 102 yesterday. Lactic acid level was high and she was treated with fluids. The patient has a mild generalized abdominal pain. The patient did have elevated liver enzymes since surgery. Patient according to see ME patient was hypotensive during the surgery and the liver injury could be secondary to that. One may need to rule out any pancreatitis. Patient has a past history of cholecystectomy. We will recommend to evaluate the patient to have a noncontrast CT of the abdomen to rule out any intraabdominal pathology or ischemic colitis because of causing the fever. MMODL / IJN: [id number] /
[2017-12-15 01:31] LABS: Glucose,Whole Blood 142 mg/dL (75-99)
[2017-12-15] MEDS: KETOROLAC 30 MG/ML 1 ML VIAL IVP SCH ×3 (03:04→14:17)
[2017-12-15] MEDS: PIPERACILLIN-TAZOBACTAM 3.375 GM in DEXTROSE/WATER 1 50ML.BAG IVPB SCH ×3 (05:28→16:11)
[2017-12-15 05:56] LABS: Glucose,Whole Blood 155 mg/dL (75-99)
[2017-12-15] MEDS: INSULIN ASPART 100 UNIT/ML 1 ML 10 ML VIAL SQ SCH ×4 (06:29→23:19)
[2017-12-15] MEDS: PANTOPRAZOLE 40 MG TABLET PO SCH (06:29)
[2017-12-15] MEDS: LEVOTHYROXINE 75 MCG TAB PO SCH (06:29)
[2017-12-15 06:38] LABS: Basophils % (A) 0 %; Eosinophils % (A) 0 %; HCT 24.5 % (34.0-46.0); Lymphocytes # (A) 0.6 k/uL (1.0-4.8); Lymphocytes % (A) 3 %; MCH 27.3 pg (25.0-35.0); MCHC 32.7 g/dL (31.0-37.0); MCV 83.5 fL (80.0-100.0); Mean Platelet Volume 7.8; Monocytes # (A) 0.8 k/uL (0-1.0); Monocytes % (A) 4 %; Neutrophils # (A) 19.2 k/uL (1.3-7.7); Neutrophils % (A) 92 %; Platelet Count 268 k/uL (150-450); RBC 2.93 m/uL (3.80-5.40); RDW 15.2 % (11.5-15.5); WBC 20.8 k/uL (3.8-10.6)
[2017-12-15 07:02] LABS: ALT 64 U/L (9-52); AST 59 U/L (14-36); Albumin 2.5 g/dL (3.5-5.0); Alkaline Phosphatase 168 U/L (38-126); Anion Gap 9 mmol/L; Blood Urea Nitrogen 22 mg/dL (7-17); Calcium 8.6 mg/dL (8.4-10.2); Carbon Dioxide 18 mmol/L (22-30); Chloride 105 mmol/L (98-107); Glucose 124 mg/dL (74-99); Potassium 3.4 mmol/L (3.5-5.1); Sodium 132 mmol/L (137-145); Total Bilirubin 0.7 mg/dL (0.2-1.3); Total Protein 4.6 g/dL (6.3-8.2)
--- NOTE | 2017-12-15 07:36 | XR ---
EXAMINATION TYPE: XR chest 2V DATE OF EXAM: 12/15/2017 COMPARISON: 12/14/2017 HISTORY: Status post cardiac surgery. Follow-up exam. TECHNIQUE: Frontal and lateral views of the chest are obtained. FINDINGS: There is persistent mild pulmonary vascular congestion and interstitial pulmonary edema. T here is improved aeration of the left lung base. Post CABG changes of the chest are again noted. Card iomediastinal silhouette is prominent and similar to the prior. Chronic glenohumeral deformities are unchanged. External density is seen over the right soft tissues of the neck and lung apex. No sizable pneumothorax. IMPRESSION: Persistent mild pulmonary vascular congestion and interstitial edema but improved aerati on of the left lung base.
[2017-12-15] MEDS: IPRATROPIUM-ALBUTEROL 3 ML NEB INHALATION SCH ×4 (08:46→20:06)
--- NOTE | 2017-12-15 09:01 | P.PN ---
Subjective Progress Note Date: 12/15/17 Principal diagnosis: Coronary artery disease with critical left main disease. Preserved left ventricular function. Previous medical history of hypertension, hyperlipidemia , diabetes mellitus with preoperative hemoglobin A1c 8.1%, hypothyroid, chest granulomatous disease, peripheral vascular disease status post right fem-pop bypass, previous tobacco dependence with preoperative FEV1 109% of predicted in November 2016, recent fall in June 2017 with torn right rotator cuff, questionable DVT with previous Coumadin use greater than 2 years ago, syncopal episodes, history of paroxysmal atrial fibrillation, chronic low back pain, obesity, depression and preoperative E. coli urinary tract infection. POD #4 urgent quadruple coronary artery bypass grafting using the left internal mammary artery sequentially to the diagonal coronary artery and to the left anterior descending coronary artery, a reverse greater saphenous vein graft from the aorta to the first obtuse marginal coronary artery, a reverse greater saphenous vein graft from the aorta to the third obtuse marginal coronary artery. Bilateral pulmonary vein isolation using the AtriCure radiofrequency clamp. Exclusion of the left atrial appendage using a 35 mm AtriClip. Intraoperative transesophageal echocardiogram and epi-aortic scanning. Postoperative elevation in transaminases, an unexpected outcome, resolving. Leukocytosis, present preoperatively. Postoperative diarrhea, an unexpected outcome. Patient is currently sitting up to bedside chair. She is in no acute distress. She is complaining of 7 episodes of liquid diarrhea throughout the night and has had some incontinent episodes. She denies any complaints of pain, shortness of breath, nausea or fever. Currently her maintenance IV fluids continue to run 0.9% at 50 mL per hour. Neural checks remained unremarkable, she is currently alert and oriented 3. She is tolerating her breakfast and has eaten around 30% of her meal. IV antibiotics are in place Zosyn and vancomycin which is being managed by infectious disease. Objective - Vital Signs Vital signs: Vital Signs Temp 97.1 F L 12/15/17 03:20 Pulse 93 12/15/17 03:21 Resp 18 12/15/17 03:21 BP 115/73 12/15/17 03:20 Pulse Ox 95 12/15/17 03:20 Intake & Output 12/14/17 12/15/17 12/15/17 18:59 06:59 18:59 Intake Total 768 Output Total 1 3 Balance 767 -3 Weight 90.1 kg Intake: Intake, IV Titration 650 Amount Piperacillin-Tazobactam 3 50 .375 gm In Dextrose/Water 1 50ml.bag @ 12.5 mls/hr IVPB Q6HR [facility] Rx#: [id number] Sodium Chloride 0.9% 1, 350 000 ml @ 50 mls/hr IV . Q20H [facility] Rx#:[id number] Vancomycin 1,500 mg In 250 Sodium Chloride 0.9% 250 ml @ 125 mls/hr IVPB Q12H [facility] Rx#:[id number] Oral 118 Output: Stool 1 3 Other: Voiding Method Bedpan Diaper # Voids 1 1 # Bowel Movements 2 1 2 ABP, PAP, CO, CI - Last Documented Arterial Blood Pressure 122/59 Pulmonary Artery Pressure 4/4 Cardiac Output 4.5 Cardiac Index 2.5 - Constitutional General appearance: Present: cooperative, morbidly obese, no acute distress - Respiratory Details: Lung sounds are essentially clear throughout, diminished bilateral bases. Respirations are symmetrical and nonlabored. Oxygen saturation are 95% on room air. She is achieving 1250 mL on her incentive spirometry. - Cardiovascular Details: Regular rhythm and rate. S1 and S2 present, negative for S3, gallop or murmur. Sternum is stable. Remote telemetry showing normal sinus rhythm heart rate 97. Atrial and ventricular epicardial pacemaker wires in place and are grounded. No edema present. Knee-high KURT hose and sequential compression devices in place to her bilateral lower extremities. - Gastrointestinal Gastrointestinal Comment(s): Abdomen is soft, nontender and nondistended. Hypoactive bowel sounds all 4 abdominal quadrants. Tolerating oral intake. Frequent episodes of loose stools. - Genitourinary Genitourinary Comment(s): Voiding clear noah urine, occasional incontinence. - Integumentary Integumentary Comment(s): Skin is warm and dry. No clubbing or cyanosis present. Midline sternal incision clean dry and approximated. No drainage or redness present. Left lower extremity EVH site clean dry and approximated. - Neurologic Neurologic: Present: CNII-XII intact - Musculoskeletal Musculoskeletal: Present: generalized weakness, strength equal bilaterally - Psychiatric Psychiatric: Present: A&O x's 3, appropriate affect, intact judgment & insight - Allied health notes Allied health notes reviewed: nursing - Labs CBC & Chem 7: 12/15/17 06:10 12/15/17 06:10 Labs: Abnormal Lab Results - Last 24 Hours (Table) 12/14/17 12/14/17 12/14/17 Range/Units 05:41 11:16 15:37 WBC (3.8-10.6) k/uL RBC (3.80-5.40) m/uL Hgb (11.4-16.0) gm/dL Hct (34.0-46.0) % Neutrophils # (1.3-7.7) k/uL Lymphocytes # (1.0-4.8) k/uL Sodium (137-145) mmol/L Potassium (3.5-5.1) mmol/L Carbon Dioxide (22-30) mmol/L BUN (7-17) mg/dL Glucose (74-99) mg/dL POC Glucose (mg/dL) 207 H (75-99) mg/dL AST (14-36) U/L ALT (9-52) U/L Alkaline Phosphatase (38-126) U/L Total Protein (6.3-8.2) g/dL Albumin (3.5-5.0) g/dL Amylase <30 L <30 L (30-110) U/L 12/14/17 12/14/17 12/15/17 Range/Units 16:26 20:26 01:30 WBC (3.8-10.6) k/uL RBC (3.80-5.40) m/uL Hgb (11.4-16.0) gm/dL Hct (34.0-46.0) % Neutrophils # (1.3-7.7) k/uL Lymphocytes # (1.0-4.8) k/uL Sodium (137-145) mmol/L Potassium (3.5-5.1) mmol/L Carbon Dioxide (22-30) mmol/L BUN (7-17) mg/dL Glucose (74-99) mg/dL POC Glucose (mg/dL) 157 H 183 H 142 H (75-99) mg/dL AST (14-36) U/L ALT (9-52) U/L Alkaline Phosphatase (38-126) U/L Total Protein (6.3-8.2) g/dL Albumin (3.5-5.0) g/dL Amylase (30-110) U/L 12/15/17 12/15/17 12/15/17 Range/Units 05:55 06:10 06:10 WBC 20.8 H (3.8-10.6) k/uL RBC 2.93 L (3.80-5.40) m/uL Hgb 8.0 L (11.4-16.0) gm/dL Hct 24.5 L (34.0-46.0) % Neutrophils # 19.2 H (1.3-7.7) k/uL Lymphocytes # 0.6 L (1.0-4.8) k/uL Sodium 132 L (137-145) mmol/L Potassium 3.4 L (3.5-5.1) mmol/L Carbon Dioxide 18 L (22-30) mmol/L BUN 22 H (7-17) mg/dL Glucose 124 H (74-99) mg/dL POC Glucose (mg/dL) 155 H (75-99) mg/dL AST 59 H (14-36) U/L ALT 64 H (9-52) U/L Alkaline Phosphatase 168 H (38-126) U/L Total Protein 4.6 L (6.3-8.2) g/dL Albumin 2.5 L (3.5-5.0) g/dL Amylase (30-110) U/L Microbiology - Last 24 Hours (Table) 12/13/17 22:12 Blood Culture - Preliminary Blood No Growth after 24 hours 12/12/17 17:00 Urine Culture - Final Urine,Catheterized - Imaging and Cardiology Chest x-ray: report reviewed, image reviewed Assessment and Plan (1) Diarrhea in adult patient Current Visit: Yes Status: Acute Code(s): R19.7 - DIARRHEA, UNSPECIFIED SNOMED Code(s): 49865495 (2) Chronic low back pain Current Visit: Yes Status: Chronic Code(s): M54.5 - LOW BACK PAIN; G89.29 - OTHER CHRONIC PAIN SNOMED Code(s): 503715338 (3) Coronary artery disease involving left main coronary artery Current Visit: Yes Status: Chronic Code(s): I25.10 - ATHSCL HEART DISEASE OF [place] CORONARY ARTERY W/O ANG PCTRS SNOMED Code(s): 988992150 (4) Diabetes Current Visit: Yes Status: Chronic Code(s): E11.9 - TYPE 2 DIABETES MELLITUS WITHOUT COMPLICATIONS SNOMED Code(s): 55831546 (5) Family history of heart disease Current Visit: Yes Status: Chronic Code(s): Z82.49 - FAMILY HX OF I[place]HEM HEART DIS AND OTH DIS OF THE CIRC SYS SNOMED Code(s): 695471622 (6) Hyperlipidemia Current Visit: Yes Status: Chronic Code(s): E78.5 - HYPERLIPIDEMIA, UNSPECIFIED SNOMED Code(s): 64093853 (7) Hypertension Current Visit: Yes Status: Chronic Code(s): I10 - ESSENTIAL (PRIMARY) HYPERTENSION SNOMED Code(s): 13189366 (8) Hypothyroid Current Visit: Yes Status: Chronic Code(s): E03.9 - HYPOTHYROIDISM, UNSPECIFIED SNOMED Code(s): 98164182 (9) Peripheral vascular disease Current Visit: Yes Status: Chronic Code(s): I73.9 - PERIPHERAL VASCULAR DISEASE, UNSPECIFIED SNOMED Code(s): 334511789 (10) History of DVT (deep vein thrombosis) Current Visit: No Status: Resolved Code(s): Z86.718 - PERSONAL HISTORY OF OTHER VENOUS THROMBOSIS AND EMBOLISM SNOMED Code(s): 748103946 (11) History of atrial fibrillation Current Visit: No Status: Resolved Code(s): Z86.79 - PERSONAL HISTORY OF OTHER DISEASES OF THE CIRCULATORY SYSTEM SNOMED Code(s): 072729358 (12) Tobacco dependence in remission Current Visit: No Status: Resolved Code(s): F17.201 - NICOTINE DEPENDENCE, UNSPECIFIED, IN REMISSION SNOMED Code(s): 755865213 Plan: 1. Continue aspirin, Plavix, statin, beta sheree. Will increase his metoprolol tartrate 25 mg by mouth twice a day. 2. Wean O2 as tolerated. Encourage incentive spirometry use 10 times every hour. 3. Increase activity, ambulate as tolerated. PT/OT/cardiac rehab following. 4. Continue amiodarone for A. fib prophylaxis. Currently on amiodarone 400 mg by mouth twice a day started on 12/12/2017. 5. Continue Zosyn, vancomycin. Dr. Mccartney from infectious disease recommendations. C. difficile culture negative. 6. Monitor daily labs, chest x-rays. 7. GI/DVT prophylaxis. 8. Pain control with current medication regimen. Minimize narcotic usage, utilize IV Tylenol and IV Toradol. 9. Bronchodilators management per pulmonology. 10. Insulin/diabetic management per Dr. Yousif. 11. Continue neuro checks. 12. We will discontinue her stool softener. 13. Patient will need rehab at discharge. Dr. Medrano consult noted and appreciated. 14. Replace potassium per protocol. 15. More recommendations to follow based on patient's clinical course. Time with Patient: Greater than 30
[2017-12-15] MEDS: ASPIRIN 325 MG TAB PO SCH (09:07)
[2017-12-15] MEDS: AMIODARONE 200 MG TAB PO SCH ×2 (09:07→20:38)
[2017-12-15] MEDS: HEPARIN SODIUM,PORCINE 5,000 UNIT/ML 1 ML VIAL SQ SCH ×2 (09:08→16:11)
[2017-12-15] MEDS: ATORVASTATIN 40 MG TAB PO SCH (09:08)
[2017-12-15] MEDS: DULoxetine HCL 60 MG CAPSULE.DR PO SCH (09:08)
[2017-12-15] MEDS: CLOPIDOGREL 75 MG TAB PO SCH (09:08)
[2017-12-15] MEDS: POTASSIUM CHLORIDE ER 20 MEQ TAB.ER PO SCH ×2 (09:13→10:39)
[2017-12-15] MEDS: METOPROLOL TARTRATE 25 MG TAB PO SCH ×2 (09:13→20:38)
[2017-12-15 09:20] LABS: Magnesium 2.5 mg/dL (1.6-2.3); Phosphorus 2.8 mg/dL (2.5-4.5)
[2017-12-15] MEDS: VANCOMYCIN 1,500 MG in SODIUM CHLORIDE 0.9% 250 ML IVPB SCH ×2 (10:37→23:38)
[2017-12-15 11:35] LABS: Glucose,Whole Blood 176 mg/dL (75-99)
[2017-12-15] MEDS ORDERED: LACTATED RINGERS 1,000 ML IV SCH (12:15)
[2017-12-15] MEDS: CYANOCOBALAMIN 500 MCG TAB PO SCH (12:18)
--- NOTE | 2017-12-15 12:55 | P.PN ---
Subjective Progress Note Date: 12/15/17 Principal diagnosis: Coronary artery disease. Status post coronary artery bypass grafting. Mrs. Sellers is a 72-year-old white female patient of Dr. Alcala who was undergoing cardiac evaluation for clearance for her upcoming right rotator cuff repair, was found to have inferoseptal ischemia on the nuclear stress test. Cardiac catheterization showed left main disease of 60-70%, extending into the proximal circumflex, mid LAD of 70%, and 70% ostial lesion of the left circumflex, and no significant right coronary artery disease. She was recommended surgical intervention for which she is scheduled on Monday, on 12/11. Past medical history is positive for diabetes mellitus type 2, hypertension, hyperlipidemia, hypothyroidism, peripheral vascular disease status post right fem-pop bypass, previous nicotine dependence, quit smoking 10 years ago, carries [id number] smoking history, DVT with previous Coumadin use , paroxysmal atrial fibrillation, chronic back pain, obesity and depression. Patient had a spirometry PFT in November 2016 which showed FEV1 of 109%. We are seeing this patient in consultation for pulmonary management for the upcoming coronary artery bypass grafting surgery. Patient is seen today 12/14/2017 in follow-up on the selective care unit. She is now status post coronary artery bypass grafting including a CHARLES sequentially to the diagonal artery and LAD, reverse saphenous vein grafts to the first obtuse marginal and third obtuse marginal arteries. She is postoperative day #3. She is awake and alert in no acute distress. She is doing quite well. She denies any worsening shortness of breath, cough or congestion. She is working well with the incentive spirometer. Continue good O2 saturations in the high 90s on 3 L/m per nasal cannula. Chest x-ray reveals minimal pulmonary vascular congestion and some basilar atelectasis. White count 17.7. Hemoglobin 7.8. Creatinine 0.71. The patient is seen again today 12/15/2017 in follow-up on the selective care unit. This is postoperative day #4. She is currently resting quite comfortably in bed. She denies any worsening shortness of breath. She has a loose nonproductive cough. She is maintaining good O2 saturations in the mid 90s on room air. She's been afebrile. Computed tomography scan of the abdomen revealed mild wall thickening and pericolonic stranding right hemicolon at the level of the cecum may reflect nonspecific colitis. White count 20.8. Hemoglobin 8.0. Creatinine 0.60. AST 59, ALT 64, alk phos 168. She has had issues with diarrhea. She is currently on vancomycin and Zosyn. Objective - Vital Signs Vital signs: Vital Signs Temp 98.5 F 12/15/17 12:00 Pulse 80 12/15/17 12:00 Resp 24 12/15/17 12:00 BP 96/59 12/15/17 12:00 Pulse Ox 96 12/15/17 12:00 Intake & Output 12/14/17 12/15/17 12/15/17 18:59 06:59 18:59 Intake Total 768 236 Output Total 1 3 Balance 767 -3 236 Weight 90.1 kg Intake: Intake, IV Titration 650 Amount Piperacillin-Tazobactam 3 50 .375 gm In Dextrose/Water 1 50ml.bag @ 12.5 mls/hr IVPB Q6HR WILL[facility] Rx#: [id number] Sodium Chloride 0.9% 1, 350 000 ml @ 50 mls/hr IV . Q20H WILLIAM Rx#:[id number] Vancomycin 1,500 mg In 250 Sodium Chloride 0.9% 250 ml @ 125 mls/hr IVPB Q12H WILLIAM Rx#:[id number] Oral 118 236 Output: Stool 1 3 Other: Voiding Method Bedpan Bedpan Diaper Diaper # Voids 1 1 1 # Bowel Movements 2 1 1 ABP, PAP, CO, CI - Last Documented Arterial Blood Pressure 122/59 Pulmonary Artery Pressure 4/4 Cardiac Output 4.5 Cardiac Index 2.5 - Exam - Constitutional General appearance: Present: cooperative, no acute distress, obese - Respiratory Details: Lungs sounds clear bilaterally. Respirations even, nonlabored. Currently on room air with oxygen saturation 98%. Able to achieve 0634-3318 mL on her incentive spirometry. Effective cough. - Cardiovascular Details: S1, S2 present. Regular rate and rhythm, sinus rhythm on telemetry. Palpable peripheral pulses bilaterally. No edema present. No calf pain or tenderness noted. - Gastrointestinal Gastrointestinal Comment(s): Abdomen soft, nontender, nondistended. Active bowel sounds 4 quadrants. Tolerating diet. - Genitourinary Genitourinary Comment(s): Continues to void clear, yellow urine. - Integumentary Integumentary Comment(s): Skin is warm and dry with evidence of good perfusion. Left groin soft, nontender, no drainage. - Neurologic Neurologic: Present: CNII-XII intact - Musculoskeletal Musculoskeletal Comment(s): Walks with cane. Musculoskeletal: Present: gait normal, strength equal bilaterally - Psychiatric Psychiatric: Present: A&O x's 3, appropriate affect, intact judgment & insight - Labs CBC & Chem 7: 12/15/17 06:10 12/15/17 06:10 Labs: Abnormal Lab Results - Last 24 Hours (Table) 12/14/17 12/14/17 12/14/17 Range/Units 05:41 15:37 16:26 WBC (3.8-10.6) k/uL RBC (3.80-5.40) m/uL Hgb (11.4-16.0) gm/dL Hct (34.0-46.0) % Neutrophils # (1.3-7.7) k/uL Lymphocytes # (1.0-4.8) k/uL Sodium (137-145) mmol/L Potassium (3.5-5.1) mmol/L Carbon Dioxide (22-30) mmol/L BUN (7-17) mg/dL Glucose (74-99) mg/dL POC Glucose (mg/dL) 157 H (75-99) mg/dL Plasma Lactic Acid Frederick (0.7-2.0) mmol/L Magnesium (1.6-2.3) mg/dL AST (14-36) U/L ALT (9-52) U/L Alkaline Phosphatase (38-126) U/L Total Protein (6.3-8.2) g/dL Albumin (3.5-5.0) g/dL Amylase <30 L <30 L (30-110) U/L 12/14/17 12/15/17 12/15/17 Range/Units 20:26 01:30 05:55 WBC (3.8-10.6) k/uL RBC (3.80-5.40) m/uL Hgb (11.4-16.0) gm/dL Hct (34.0-46.0) % Neutrophils # (1.3-7.7) k/uL Lymphocytes # (1.0-4.8) k/uL Sodium (137-145) mmol/L Potassium (3.5-5.1) mmol/L Carbon Dioxide (22-30) mmol/L BUN (7-17) mg/dL Glucose (74-99) mg/dL POC Glucose (mg/dL) 183 H 142 H 155 H (75-99) mg/dL Plasma Lactic Acid Frederick (0.7-2.0) mmol/L Magnesium (1.6-2.3) mg/dL AST (14-36) U/L ALT (9-52) U/L Alkaline Phosphatase (38-126) U/L Total Protein (6.3-8.2) g/dL Albumin (3.5-5.0) g/dL Amylase (30-110) U/L 12/15/17 12/15/17 12/15/17 Range/Units 06:10 06:10 06:10 WBC 20.8 H (3.8-10.6) k/uL RBC 2.93 L (3.80-5.40) m/uL Hgb 8.0 L (11.4-16.0) gm/dL Hct 24.5 L (34.0-46.0) % Neutrophils # 19.2 H (1.3-7.7) k/uL Lymphocytes # 0.6 L (1.0-4.8) k/uL Sodium 132 L (137-145) mmol/L Potassium 3.4 L (3.5-5.1) mmol/L Carbon Dioxide 18 L (22-30) mmol/L BUN 22 H (7-17) mg/dL Glucose 124 H (74-99) mg/dL POC Glucose (mg/dL) (75-99) mg/dL Plasma Lactic Acid Frederick (0.7-2.0) mmol/L Magnesium 2.5 H (1.6-2.3) mg/dL AST 59 H (14-36) U/L ALT 64 H (9-52) U/L Alkaline Phosphatase 168 H (38-126) U/L Total Protein 4.6 L (6.3-8.2) g/dL Albumin 2.5 L (3.5-5.0) g/dL Amylase (30-110) U/L 12/15/17 12/15/17 Range/Units 09:39 11:32 WBC (3.8-10.6) k/uL RBC (3.80-5.40) m/uL Hgb (11.4-16.0) gm/dL Hct (34.0-46.0) % Neutrophils # (1.3-7.7) k/uL Lymphocytes # (1.0-4.8) k/uL Sodium (137-145) mmol/L Potassium (3.5-5.1) mmol/L Carbon Dioxide (22-30) mmol/L BUN (7-17) mg/dL Glucose (74-99) mg/dL POC Glucose (mg/dL) 176 H (75-99) mg/dL Plasma Lactic Acid Frederick 2.1 H* (0.7-2.0) mmol/L Magnesium (1.6-2.3) mg/dL AST (14-36) U/L ALT (9-52) U/L Alkaline Phosphatase (38-126) U/L Total Protein (6.3-8.2) g/dL Albumin (3.5-5.0) g/dL Amylase (30-110) U/L Microbiology - Last 24 Hours (Table) 12/13/17 22:12 Blood Culture - Preliminary Blood No Growth after 24 hours Assessment and Plan Assessment: Impression: #1. Multivessel coronary artery disease, involving left main coronary artery. Status post coronary artery bypass grafting. Postoperative day #4. #2. Urinary tract infection secondary to E. coli, follow-up culture negative #3. Hyperlipidemia #4. Diabetes mellitus 2 #5. Obesity #6. Peripheral vascular disease #7. History of nicotine dependence, currently in remission, quit 10 years ago, carries [id number] smoking history #8. Hypothyroidism #9. Paroxysmal atrial fibrillation, currently in sinus rhythm #10. Chronic low back pain #11. Depression Plan: The patient was seen and evaluated by Dr. Griffin. She continues working well with the incentive spirometer. No pulmonary complaints. Increase her activity as tolerated. We'll continue to follow. I, the cosigning physician, performed a history & physical examination of the patient. Lungs sounds faint crackles in the bases. Maintaining good O2 saturations in the 90s on room air. I discussed the assessment and plan of care with my nurse practitioner, Anne Marie Javed. I attest to the above note as dictated by her.
--- NOTE | 2017-12-15 13:55 | P.PN ---
Subjective Progress Note Date: 12/15/17 This is a pleasant 72-year-old female patient with coronary artery disease, critical left main disease and preserved left ventricular function. She has history of hypertension, hyperlipidemia, and paroxysmal atrial fibrillation. We are following her postoperatively. She underwent urgent quadruple coronary artery bypass grafting with CHARLES to the diagonal coronary artery and left anterior descending artery, reverse greater saphenous cream vein graft to the first and third OM coronary arteries. Postoperatively, patient spiked a 102 temperature. Lactic acid level was high she was found to have E. coli in her urine. She is being followed by infectious disease. She is being treated with IV antibiotics. She also underwent CT of the abdomen which showed mild wall thickening and pericolonic stranding right hemicolon at the level of the cecum which may reflect nonspecific colitis. She is currently maintaining sinus rhythm. She is currently on amiodarone 400 mg by mouth twice a day. Upon examination, patient is resting comfortably in bed. She is complaining of some shortness of breath with exertion. Objective - Vital Signs Vital signs: Vital Signs Temp 98.5 F 12/15/17 12:00 Pulse 80 12/15/17 12:00 Resp 24 12/15/17 12:00 BP 96/59 12/15/17 12:00 Pulse Ox 96 12/15/17 12:00 Intake & Output 12/14/17 12/15/17 12/15/17 18:59 06:59 18:59 Intake Total 768 472 Output Total 1 3 Balance 767 -3 472 Weight 90.1 kg Intake: Intake, IV Titration 650 Amount Piperacillin-Tazobactam 3 50 .375 gm In Dextrose/Water 1 50ml.bag @ 12.5 mls/hr IVPB Q6HR [facility] Rx#: [id number] Sodium Chloride 0.9% 1, 350 000 ml @ 50 mls/hr IV . Q20H [facility] Rx#:[id number] Vancomycin 1,500 mg In 250 Sodium Chloride 0.9% 250 ml @ 125 mls/hr IVPB Q12H [facility] Rx#:[id number] Oral 118 472 Output: Stool 1 3 Other: Voiding Method Bedpan Bedpan Diaper Diaper # Voids 1 1 1 # Bowel Movements 2 1 1 ABP, PAP, CO, CI - Last Documented Arterial Blood Pressure 122/59 Pulmonary Artery Pressure 4/4 Cardiac Output 4.5 Cardiac Index 2.5 - Exam PHYSICAL EXAMINATION: HEENT: [Head is atraumatic, normocephalic. Pupils equal, round. Neck is supple. There is no elevated jugular venous pressure.] HEART EXAMINATION: [Heart sounds regular, S1 and S2 normal. No murmur or gallop heard.] CHEST EXAMINATION:[ Lungs reveal diminished air entry throughout. No chest wall tenderness is noted on palpation or with deep breathing. Midsternal incision with dressing dry and intact.] ABDOMEN: [ Soft, nontender. Bowel sounds are heard. No organomegaly noted]. EXTREMITIES:[ 2+ peripheral pulses with no evidence of peripheral edema and no calf tenderness noted. Knee-high KURT hose and sequential compression devices in place bilaterally to lower extremities]. NEUROLOGIC [patient is awake, alert and oriented x3.] . - Labs CBC & Chem 7: 12/15/17 06:10 12/15/17 06:10 Labs: Abnormal Lab Results - Last 24 Hours (Table) 12/14/17 12/14/17 12/14/17 Range/Units 05:41 15:37 16:26 WBC (3.8-10.6) k/uL RBC (3.80-5.40) m/uL Hgb (11.4-16.0) gm/dL Hct (34.0-46.0) % Neutrophils # (1.3-7.7) k/uL Lymphocytes # (1.0-4.8) k/uL Sodium (137-145) mmol/L Potassium (3.5-5.1) mmol/L Carbon Dioxide (22-30) mmol/L BUN (7-17) mg/dL Glucose (74-99) mg/dL POC Glucose (mg/dL) 157 H (75-99) mg/dL Plasma Lactic Acid Frederick (0.7-2.0) mmol/L Magnesium (1.6-2.3) mg/dL AST (14-36) U/L ALT (9-52) U/L Alkaline Phosphatase (38-126) U/L Total Protein (6.3-8.2) g/dL Albumin (3.5-5.0) g/dL Amylase <30 L <30 L (30-110) U/L 12/14/17 12/15/17 12/15/17 Range/Units 20:26 01:30 05:55 WBC (3.8-10.6) k/uL RBC (3.80-5.40) m/uL Hgb (11.4-16.0) gm/dL Hct (34.0-46.0) % Neutrophils # (1.3-7.7) k/uL Lymphocytes # (1.0-4.8) k/uL Sodium (137-145) mmol/L Potassium (3.5-5.1) mmol/L Carbon Dioxide (22-30) mmol/L BUN (7-17) mg/dL Glucose (74-99) mg/dL POC Glucose (mg/dL) 183 H 142 H 155 H (75-99) mg/dL Plasma Lactic Acid Frederick (0.7-2.0) mmol/L Magnesium (1.6-2.3) mg/dL AST (14-36) U/L ALT (9-52) U/L Alkaline Phosphatase (38-126) U/L Total Protein (6.3-8.2) g/dL Albumin (3.5-5.0) g/dL Amylase (30-110) U/L 12/15/17 12/15/17 12/15/17 Range/Units 06:10 06:10 06:10 WBC 20.8 H (3.8-10.6) k/uL RBC 2.93 L (3.80-5.40) m/uL Hgb 8.0 L (11.4-16.0) gm/dL Hct 24.5 L (34.0-46.0) % Neutrophils # 19.2 H (1.3-7.7) k/uL Lymphocytes # 0.6 L (1.0-4.8) k/uL Sodium 132 L (137-145) mmol/L Potassium 3.4 L (3.5-5.1) mmol/L Carbon Dioxide 18 L (22-30) mmol/L BUN 22 H (7-17) mg/dL Glucose 124 H (74-99) mg/dL POC Glucose (mg/dL) (75-99) mg/dL Plasma Lactic Acid Frederick (0.7-2.0) mmol/L Magnesium 2.5 H (1.6-2.3) mg/dL AST 59 H (14-36) U/L ALT 64 H (9-52) U/L Alkaline Phosphatase 168 H (38-126) U/L Total Protein 4.6 L (6.3-8.2) g/dL Albumin 2.5 L (3.5-5.0) g/dL Amylase (30-110) U/L 12/15/17 12/15/17 Range/Units 09:39 11:32 WBC (3.8-10.6) k/uL RBC (3.80-5.40) m/uL Hgb (11.4-16.0) gm/dL Hct (34.0-46.0) % Neutrophils # (1.3-7.7) k/uL Lymphocytes # (1.0-4.8) k/uL Sodium (137-145) mmol/L Potassium (3.5-5.1) mmol/L Carbon Dioxide (22-30) mmol/L BUN (7-17) mg/dL Glucose (74-99) mg/dL POC Glucose (mg/dL) 176 H (75-99) mg/dL Plasma Lactic Acid Frederick 2.1 H* (0.7-2.0) mmol/L Magnesium (1.6-2.3) mg/dL AST (14-36) U/L ALT (9-52) U/L Alkaline Phosphatase (38-126) U/L Total Protein (6.3-8.2) g/dL Albumin (3.5-5.0) g/dL Amylase (30-110) U/L Microbiology - Last 24 Hours (Table) 12/13/17 22:12 Blood Culture - Preliminary Blood No Growth after 24 hours Assessment and Plan Assessment: #1 coronary artery disease #2 status post CABG 4 #3 diabetes #4 hyperlipidemia #5 hypertension #6 paroxysmal atrial fibrillation Plan: From yarder operator perspective, medications were reviewed and we'll continue the same. We will continue to follow the patient and write further recommendations accordingly. DISCOVERY MANAGER note has been reviewed, I agree with a documented findings and plan of care. Patient was seen and examined.
[2017-12-15 14:39] LABS: Anion Gap 9 mmol/L; Blood Urea Nitrogen 21 mg/dL (7-17); Calcium 8.7 mg/dL (8.4-10.2); Carbon Dioxide 17 mmol/L (22-30); Chloride 107 mmol/L (98-107); Glucose 116 mg/dL (74-99); Potassium 3.8 mmol/L (3.5-5.1); Sodium 133 mmol/L (137-145)
--- NOTE | 2017-12-15 15:25 | P.GSCN ---
History of Present Illness Consult date: 12/15/17 Reason for Consult: Colitis History of present illness: 72-year-old female underwent 4 vessel bypass on 12/11. Postoperatively the patient has had an elevated white blood cell count and intermittent elevation of her lactic acid. The patient has had some loose stools. She does have a history of previous peripheral vascular disease. A CAT scan was performed yesterday of just the abdomen only without oral contrast. There is some subtle thickening of the cecum and ascending colon and possible mild thickening of portions of the transverse colon. There is a mild colonic ileus noted with a transverse colon diameter of 6 and a meters. The patient states she has been having loose stools. C. diff is negative. White blood cell count has been elevated postoperatively. Apparently she was having bilateral lower abdominal pain earlier this morning that has since resolved. Denies pain currently. Appetite somewhat diminished. We were consulted for possible ischemic bowel. Visualized portions of the small bowel appear relatively normal on recent CAT scan. Infectious disease also following this patient. Review of Systems The patient denies any acute changes in vision or hearing, no dysphagia or odynophagia, no dysuria or hematuria, no headache, no runny nose, no rectal bleeding or melena, no unexplained weight loss Past Medical History Past Medical History: Atrial Fibrillation, Coronary Artery Disease (CAD), Diabetes Mellitus, Hyperlipidemia, Hypertension, Osteoarthritis (OA), Thyroid Disorder, Vascular Disorder Additional Past Medical History / Comment(s): Pt. states poor circulation in RLE due to an artificial bypass. SOB, dizzy spells @ times. See Dr. Blackmon' s H & P. Chronic back pain, bilateral shoulder problems. History of Any Multi-Drug Resistant Organisms: None Reported Past Surgical History: Appendectomy, Breast Surgery, Cholecystectomy, Orthopedic Surgery Additional Past Surgical History / Comment(s): Femoral popliteal bypass. Bilateral knee replacements. Left breast surgery for benign tumor. Epidurals to lower back. Past Anesthesia/Blood Transfusion Reactions: No Reported Reaction Past Psychological History: Anxiety, Depression Smoking Status: Former smoker Past Alcohol Use History: Rare Additional Past Alcohol Use History / Comment(s): Quit smoking in 2007, smoked 1 PPD x 42 yrs. patient was at home with her . Past Drug Use History: None Reported - Past Family History Mother Family Medical History: Cancer Additional Family Medical History / Comment(s): Uterine cancer. Medications and Allergies Home Medications Medication Instructions Recorded Confirmed Type Aspirin 81 mg PO HS 12/31/15 12/08/17 History Cilostazol [Pletal] 100 mg PO BID 12/31/15 12/08/17 History DULoxetine HCL [Cymbalta] 60 mg PO DAILY 12/14/16 12/08/17 History Ergocalciferol (Vitamin D2) 50,000 unit PO TUFR 12/14/16 12/08/17 History [Vitamin D2] Levothyroxine Sodium [Synthroid] 75 mcg PO DAILY 12/14/16 12/08/17 History Olmesartan/Hydrochlorothiazide 1 tab PO DAILY 12/14/16 12/08/17 History [Benicar Hct 40-25 mg Tablet] Rosuvastatin [Crestor] 20 mg PO HS 12/14/16 12/08/17 History Ibuprofen [Motrin] 800 mg PO BID 11/21/17 12/08/17 History Cyanocobalamin [Vitamin B-12] 500 mcg PO DAILY 12/04/17 12/08/17 History metFORMIN HCL [Glucophage] 500 mg PO BID 12/04/17 12/08/17 History oxyCODONE HCL [OxyCONTIN] 30 mg PO TID 12/04/17 12/08/17 History Allergies Allergy/AdvReac Type Severity Reaction Status Date / Time No Known Allergies Allergy Verified 12/08/17 06:38 Surgical - Exam Vital Signs Temp Pulse Resp BP Pulse Ox 98.2 F 82 18 153/74 93 L 12/08/17 07:03 12/08/17 07:03 12/08/17 07:03 12/08/17 07:03 12/08/17 07:03 Physical exam: General: Well-developed, well-nourished in no distress HEENT: Normocephalic, sclerae nonicteric Abdomen: Nontender, minimally distended Extremities: Mild edema Neuro: Alert and oriented Results - Labs 12/15/17 06:10 12/15/17 14:13 Abnormal Lab Results - Last 24 Hours (Table) 12/14/17 12/14/17 12/14/17 Range/Units 15:37 16:26 20:26 WBC (3.8-10.6) k/uL RBC (3.80-5.40) m/uL Hgb (11.4-16.0) gm/dL Hct (34.0-46.0) % Neutrophils # (1.3-7.7) k/uL Lymphocytes # (1.0-4.8) k/uL Sodium (137-145) mmol/L Potassium (3.5-5.1) mmol/L Carbon Dioxide (22-30) mmol/L BUN (7-17) mg/dL Glucose (74-99) mg/dL POC Glucose (mg/dL) 157 H 183 H (75-99) mg/dL Plasma Lactic Acid Frederick (0.7-2.0) mmol/L Magnesium (1.6-2.3) mg/dL AST (14-36) U/L ALT (9-52) U/L Alkaline Phosphatase (38-126) U/L Total Protein (6.3-8.2) g/dL Albumin (3.5-5.0) g/dL Amylase <30 L (30-110) U/L 12/15/17 12/15/17 12/15/17 Range/Units 01:30 05:55 06:10 WBC 20.8 H (3.8-10.6) k/uL RBC 2.93 L (3.80-5.40) m/uL Hgb 8.0 L (11.4-16.0) gm/dL Hct 24.5 L (34.0-46.0) % Neutrophils # 19.2 H (1.3-7.7) k/uL Lymphocytes # 0.6 L (1.0-4.8) k/uL Sodium (137-145) mmol/L Potassium (3.5-5.1) mmol/L Carbon Dioxide (22-30) mmol/L BUN (7-17) mg/dL Glucose (74-99) mg/dL POC Glucose (mg/dL) 142 H 155 H (75-99) mg/dL Plasma Lactic Acid Frederick (0.7-2.0) mmol/L Magnesium (1.6-2.3) mg/dL AST (14-36) U/L ALT (9-52) U/L Alkaline Phosphatase (38-126) U/L Total Protein (6.3-8.2) g/dL Albumin (3.5-5.0) g/dL Amylase (30-110) U/L 12/15/17 12/15/17 12/15/17 Range/Units 06:10 06:10 09:39 WBC (3.8-10.6) k/uL RBC (3.80-5.40) m/uL Hgb (11.4-16.0) gm/dL Hct (34.0-46.0) % Neutrophils # (1.3-7.7) k/uL Lymphocytes # (1.0-4.8) k/uL Sodium 132 L (137-145) mmol/L Potassium 3.4 L (3.5-5.1) mmol/L Carbon Dioxide 18 L (22-30) mmol/L BUN 22 H (7-17) mg/dL Glucose 124 H (74-99) mg/dL POC Glucose (mg/dL) (75-99) mg/dL Plasma Lactic Acid Frederick 2.1 H* (0.7-2.0) mmol/L Magnesium 2.5 H (1.6-2.3) mg/dL AST 59 H (14-36) U/L ALT 64 H (9-52) U/L Alkaline Phosphatase 168 H (38-126) U/L Total Protein 4.6 L (6.3-8.2) g/dL Albumin 2.5 L (3.5-5.0) g/dL Amylase (30-110) U/L 12/15/17 12/15/17 12/15/17 Range/Units 11:32 14:13 14:13 WBC (3.8-10.6) k/uL RBC (3.80-5.40) m/uL Hgb (11.4-16.0) gm/dL Hct (34.0-46.0) % Neutrophils # (1.3-7.7) k/uL Lymphocytes # (1.0-4.8) k/uL Sodium 133 L (137-145) mmol/L Potassium (3.5-5.1) mmol/L Carbon Dioxide 17 L (22-30) mmol/L BUN 21 H (7-17) mg/dL Glucose 116 H (74-99) mg/dL POC Glucose (mg/dL) 176 H (75-99) mg/dL Plasma Lactic Acid Frederick 3.5 H* (0.7-2.0) mmol/L Magnesium (1.6-2.3) mg/dL AST (14-36) U/L ALT (9-52) U/L Alkaline Phosphatase (38-126) U/L Total Protein (6.3-8.2) g/dL Albumin (3.5-5.0) g/dL Amylase (30-110) U/L Microbiology - Last 24 Hours (Table) 12/13/17 22:12 Blood Culture - Preliminary Blood No Growth after 24 hours Diabetes panel 12/15/17 12/15/17 Range/Units 06:10 14:13 Sodium 132 L 133 L (137-145) mmol/L Potassium 3.4 L 3.8 (3.5-5.1) mmol/L Chloride 105 107 (98-107) mmol/L Carbon Dioxide 18 L 17 L (22-30) mmol/L BUN 22 H 21 H (7-17) mg/dL Creatinine 0.60 0.60 (0.52-1.04) mg/dL Glucose 124 H 116 H (74-99) mg/dL Calcium 8.6 8.7 (8.4-10.2) mg/dL AST 59 H (14-36) U/L ALT 64 H (9-52) U/L Alkaline Phosphatase 168 H (38-126) U/L Total Protein 4.6 L (6.3-8.2) g/dL Albumin 2.5 L (3.5-5.0) g/dL Calcium panel 12/15/17 12/15/17 12/15/17 Range/Units 06:10 06:10 14:13 Calcium 8.6 8.7 (8.4-10.2) mg/dL Phosphorus 2.8 (2.5-4.5) mg/dL Albumin 2.5 L (3.5-5.0) g/dL Pituitary panel 12/15/17 12/15/17 Range/Units 06:10 14:13 Sodium 132 L 133 L (137-145) mmol/L Potassium 3.4 L 3.8 (3.5-5.1) mmol/L Chloride 105 107 (98-107) mmol/L Carbon Dioxide 18 L 17 L (22-30) mmol/L BUN 22 H 21 H (7-17) mg/dL Creatinine 0.60 0.60 (0.52-1.04) mg/dL Glucose 124 H 116 H (74-99) mg/dL Calcium 8.6 8.7 (8.4-10.2) mg/dL Adrenal panel 12/15/17 12/15/17 Range/Units 06:10 14:13 Sodium 132 L 133 L (137-145) mmol/L Potassium 3.4 L 3.8 (3.5-5.1) mmol/L Chloride 105 107 (98-107) mmol/L Carbon Dioxide 18 L 17 L (22-30) mmol/L BUN 22 H 21 H (7-17) mg/dL Creatinine 0.60 0.60 (0.52-1.04) mg/dL Glucose 124 H 116 H (74-99) mg/dL Calcium 8.6 8.7 (8.4-10.2) mg/dL Total Bilirubin 0.7 (0.2-1.3) mg/dL AST 59 H (14-36) U/L ALT 64 H (9-52) U/L Alkaline Phosphatase 168 H (38-126) U/L Total Protein 4.6 L (6.3-8.2) g/dL Albumin 2.5 L (3.5-5.0) g/dL Assessment and Plan (1) Ischemic colitis Narrative/Plan: Patient's history and CAT scan findings suggest mild ischemic colitis. This is likely from relative hypoperfusion or possibly even microvascular emboli intraoperatively. The patient seems to be doing better at this time and has no pain currently. Her exam shows no evidence of peritoneal signs and she remains nontender. Continue supportive care. Continue IV antibiotics. We'll follow closely with you. Current Visit: Yes Status: Acute Code(s): K55.9 - VASCULAR DISORDER OF INTESTINE, UNSPECIFIED SNOMED Code(s): 82084160
[2017-12-15 16:05] LABS: Glucose,Whole Blood 130 mg/dL (75-99)
--- NOTE | 2017-12-15 16:07 | PN ---
PROGRESS NOTE DATE OF SERVICE: 12/15/2017 This 72-year-old woman was admitted to the hospital with CAD/ CABG is being closely monitored. Sensorium has improved significantly at this time. The patient also complains of diarrhea. C diff is negative. Multiple consultants are following the patient. Patient is on broad-spectrum IV antibiotics also. The most recent chest x- ray showed some mild vascular congestion. Cardiothoracic surgery is following the patient closely. PAST MEDICAL HISTORY: Reviewed. PHYSICAL EXAM: Patient is alert, oriented x3. The pulse is 80, blood pressure 90/59, respiration 24, temperature 98.4, pulse ox 98% on room air. HEENT: Conjunctivae normal. Oral mucosa moist. Neck is no jugular venous distention. No carotid bruit. No lymph node enlargement. Cardiovascular systems: S1, S2 muffled. Respiration: Breath sounds diminished in the bases. A few scattered rhonchi and crackles. ABDOMEN: Soft, nontender. No mass palpable. Legs: No edema. No swelling. Central nervous system: No focal deficits. LABS: WBC 20.8, hemoglobin is 8, sodium 130, potassium 3.4. Plasma lactic acid 2.1. ASSESSMENT: 1. Coronary artery disease status post coronary artery bypass grafting. 2. Atrial fibrillation. 3. Change in mental status, metabolic encephalopathy, possibly medication induced, improving. 4. Diarrhea. C. dif negative. 5. Increased WBC on empiric antibiotics. 6. Coronary artery disease. 7. Diabetes mellitus type 2. 8. Increased LFT. 9. Hypertension. 10.Hyperlipidemia. 11.History of degenerative joint disease. 12.Hypothyroidism. 13.History of allergic rhinitis. 14.History of nicotine dependence. 15.Increased WBC. 16.Anxiety, depression. 17.Urinary tract infection with E coli present on admission. RECOMMENDATIONS AND DISCUSSION: I recommend to continue current medications, management and otherwise symptomatic treatment for the diarrhea. C difficile is negative. Continue to monitor. Further recommendations to follow. MMODL / IJN: [id number] /
[2017-12-15] MEDS ORDERED: POTASSIUM CHLORIDE ER 20 MEQ TAB.ER PO SCH (17:00)
[2017-12-15 17:17] LABS: Glucose,Whole Blood 136 mg/dL (75-99)
[2017-12-15] MEDS ORDERED: NALOXONE 0.4 MG/ML 1 ML VIAL IV PRN (17:23)
[2017-12-15] MEDS: D5-0.45% NACL WITH KCL 20MEQ/L 1,000 ML IV SCH (17:39)
[2017-12-15 17:47] LABS: Partial Thromboplastin Time 26.4 sec (22.0-30.0); Prothrombin Time 10.1 sec (9.0-12.0)
[2017-12-15] MEDS ORDERED: SODIUM CHLORIDE 0.9% 500 ML IV ONE (17:52)
[2017-12-15] MEDS: HEPARIN SOD,PORK IN 0.45% NACL 25,000 UNIT in 0.45% NACL 1 500ML.BAG IV SCH (17:54)
[2017-12-15] MEDS: MELATONIN 3 MG TABLET PO SCH (20:39)
[2017-12-15 20:47] LABS: Glucose,Whole Blood 175 mg/dL (75-99)
--- NOTE | 2017-12-15 21:23 | P.PN ---
Subjective Progress Note Date: 12/15/17 This is a 72-year-old female patient who initially underwent a stress test that was positive followed by a heart catheterization that showed significant disease in the left main, mid LAD and ostial circumflex. She then underwent an urgent CABG 4 vessel on December 11. Patient seems to have been recovering well until yesterday. She was noted to develop a fever of 102.6, lactic acid was 2.3 and also liver enzymes elevated. She had been treated for E. coli urinary tract infection that was present on admission with Rocephin. Her antibiotics were then changed to Zosyn and vancomycin. Patient also had some hypersomnolence and confusion yesterday for which her narcotics were changed from oxycodone which she chronically takes for back pain and switched to [place] every 6, IV Tylenol and Toradol and patient continues to have significant back pain. She denies chest pain, shortness of breath, nausea or vomiting. She denies any diarrhea. She does have decreased appetite which is been going on since admission. She states that she feels better from yesterday and recognizes that she was lethargic yesterday. Today. she has been up for shower and has had a bowel movement. Patient had low urine output yesterday and received a dose of Lasix. She had a CAT scan of the brain that showed cerebral atrophy and chronic small vessel ischemia. No acute intracranial process. She states that she was coughing a lot this morning but no denies shortness of breath. Chest x-ray from this morning shows minimal pulmonary vascular congestion cannot be exaggerated by low lung volumes in addition to persistent unchanged retrocardiac airspace disease, likely atelectasis and trace pleural effusions. Patient was using incentive spirometer 2000 mL she yesterday. She has had no significant wound concerns. Chest tubes and Almaguer are out. Patient denies any burning or pain with urination. . Now back in the intensive care unit she's had some abdominal pain and with worsening of her status including lactic acidosis to was concerns to ischemic colitis. She has been seen by surgery is being closely followed. She is on antimicrobial therapy with piperacillin tazobactam and vancomycin which would give coverage for ischemic colitis. Severe back pain is modestly controlled at this time. Patient is given a fluid bolus it appears that her lactic acid has dropped from 3.5-1.0. Fluids were also changed from lactated Ringer's to D5/ 0.45% NaCl with 20 mEq of KCl Objective - Vital Signs Vital signs: Vital Signs Temp 98.2 F 12/15/17 20:00 Pulse 98 12/15/17 20:22 Resp 20 12/15/17 20:15 BP 107/60 12/15/17 20:00 Pulse Ox 94 L 12/15/17 20:00 Intake & Output 12/15/17 12/15/17 12/16/17 06:59 18:59 06:59 Intake Total 677.0 592.5 Output Total 3 950 Balance -3 -273.0 592.5 Weight 90.1 kg Intake: Intake, IV Titration 205.0 592.5 Amount D5-0.45% NaCl with KCl 80 80 20Meq/l 1,000 ml @ 80 mls /hr IV .[id number] WILLIAM Rx#: [id number] Lactated Ringers 1,000 ml 100 @ 50 mls/hr IV .Q20H WILLIAM Rx#:[id number] Piperacillin-Tazobactam 3 25.0 12.5 .375 gm In Dextrose/Water 1 50ml.bag @ 12.5 mls/hr IVPB Q8HR WILLIAM Rx#: [id number] Sodium Chloride 0.9% 500 500 ml @ 999 mls/hr IV .Q31M ONE Rx#:[id number] Oral 472 Output: Urine 950 Stool 3 Other: Voiding Method Bedpan Bedpan Diaper Diaper # Voids 1 1 # Bowel Movements 1 1 ABP, PAP, CO, CI - Last Documented Arterial Blood Pressure 122/59 Pulmonary Artery Pressure 4/4 Cardiac Output 4.5 Cardiac Index 2.5 - Exam Gen: This is a 72-year-old female. She is sitting up in a chair at the bedside and appears to be somewhat uncomfortable. Patient is complaining of significant left sided back pain into her buttocks. HEENT: Head is atraumatic, normocephalic. Pupils equal, round. Sclerae is anicteric. Mucous members of the mouth are moist. NECK: Supple. No JVD. No lymphadenopathy. No thyromegaly. LUNGS: Clear to auscultation. No wheezes or rhonchi. No intercostal retractions. HEART: Regular rate and rhythm. No murmur. Sternal wound is intact. No significant drainage, erythema. ABDOMEN: Soft. Bowel sounds are present. No masses. No tenderness. EXTREMITIES: No pedal edema. Wound and left lower extremity shows no signs of infection. No drainage, significant erythema or edema. NEUROLOGICAL: Patient is awake, alert and oriented x3. Skin the surgical site the chest wall is intact without erythema crepitance or fluctuance vein harvest site is intact. - Labs CBC & Chem 7: 12/15/17 06:10 12/15/17 14:13 Labs: Abnormal Lab Results - Last 24 Hours (Table) 12/15/17 12/15/17 12/15/17 Range/Units 01:30 05:55 06:10 WBC 20.8 H (3.8-10.6) k/uL RBC 2.93 L (3.80-5.40) m/uL Hgb 8.0 L (11.4-16.0) gm/dL Hct 24.5 L (34.0-46.0) % Neutrophils # 19.2 H (1.3-7.7) k/uL Lymphocytes # 0.6 L (1.0-4.8) k/uL Sodium (137-145) mmol/L Potassium (3.5-5.1) mmol/L Carbon Dioxide (22-30) mmol/L BUN (7-17) mg/dL Glucose (74-99) mg/dL POC Glucose (mg/dL) 142 H 155 H (75-99) mg/dL Plasma Lactic Acid Frederick (0.7-2.0) mmol/L Magnesium (1.6-2.3) mg/dL AST (14-36) U/L ALT (9-52) U/L Alkaline Phosphatase (38-126) U/L Total Protein (6.3-8.2) g/dL Albumin (3.5-5.0) g/dL 12/15/17 12/15/17 12/15/17 Range/Units 06:10 06:10 09:39 WBC (3.8-10.6) k/uL RBC (3.80-5.40) m/uL Hgb (11.4-16.0) gm/dL Hct (34.0-46.0) % Neutrophils # (1.3-7.7) k/uL Lymphocytes # (1.0-4.8) k/uL Sodium 132 L (137-145) mmol/L Potassium 3.4 L (3.5-5.1) mmol/L Carbon Dioxide 18 L (22-30) mmol/L BUN 22 H (7-17) mg/dL Glucose 124 H (74-99) mg/dL POC Glucose (mg/dL) (75-99) mg/dL Plasma Lactic Acid Frederick 2.1 H* (0.7-2.0) mmol/L Magnesium 2.5 H (1.6-2.3) mg/dL AST 59 H (14-36) U/L ALT 64 H (9-52) U/L Alkaline Phosphatase 168 H (38-126) U/L Total Protein 4.6 L (6.3-8.2) g/dL Albumin 2.5 L (3.5-5.0) g/dL 12/15/17 12/15/17 12/15/17 Range/Units 11:32 14:13 14:13 WBC (3.8-10.6) k/uL RBC (3.80-5.40) m/uL Hgb (11.4-16.0) gm/dL Hct (34.0-46.0) % Neutrophils # (1.3-7.7) k/uL Lymphocytes # (1.0-4.8) k/uL Sodium 133 L (137-145) mmol/L Potassium (3.5-5.1) mmol/L Carbon Dioxide 17 L (22-30) mmol/L BUN 21 H (7-17) mg/dL Glucose 116 H (74-99) mg/dL POC Glucose (mg/dL) 176 H (75-99) mg/dL Plasma Lactic Acid Frederick 3.5 H* (0.7-2.0) mmol/L Magnesium (1.6-2.3) mg/dL AST (14-36) U/L ALT (9-52) U/L Alkaline Phosphatase (38-126) U/L Total Protein (6.3-8.2) g/dL Albumin (3.5-5.0) g/dL 12/15/17 12/15/17 12/15/17 Range/Units 16:02 17:15 20:45 WBC (3.8-10.6) k/uL RBC (3.80-5.40) m/uL Hgb (11.4-16.0) gm/dL Hct (34.0-46.0) % Neutrophils # (1.3-7.7) k/uL Lymphocytes # (1.0-4.8) k/uL Sodium (137-145) mmol/L Potassium (3.5-5.1) mmol/L Carbon Dioxide (22-30) mmol/L BUN (7-17) mg/dL Glucose (74-99) mg/dL POC Glucose (mg/dL) 130 H 136 H 175 H (75-99) mg/dL Plasma Lactic Acid Frederick (0.7-2.0) mmol/L Magnesium (1.6-2.3) mg/dL AST (14-36) U/L ALT (9-52) U/L Alkaline Phosphatase (38-126) U/L Total Protein (6.3-8.2) g/dL Albumin (3.5-5.0) g/dL Microbiology - Last 24 Hours (Table) 12/15/17 14:15 Stool Culture - Preliminary Stool 12/13/17 22:12 Blood Culture - Preliminary Blood No Growth after 24 hours Laboratory Results WBC 20.8 k/uL (3.8-10.6) H 12/15/17 06:10 RBC 2.93 m/uL (3.80-5.40) L 12/15/17 06:10 Hgb 8.0 gm/dL (11.4-16.0) L 12/15/17 06:10 Hct 24.5 % (34.0-46.0) L 12/15/17 06:10 MCV 83.5 fL (80.0-100.0) 12/15/17 06:10 MCH 27.3 pg (25.0-35.0) 12/15/17 06:10 MCHC 32.7 g/dL (31.0-37.0) 12/15/17 06:10 RDW 15.2 % (11.5-15.5) 12/15/17 06:10 Plt Count 268 k/uL (150-450) 12/15/17 06:10 Neutrophils % 92 % 12/15/17 06:10 Neutrophils % (Manual) 82 % 12/11/17 16:55 Band Neutrophils % 7 % 12/11/17 16:55 Lymphocytes % 3 % 12/15/17 06:10 Lymphocytes % (Manual) 6 % 12/11/17 16:55 Monocytes % 4 % 12/15/17 06:10 Monocytes % (Manual) 5 % 12/11/17 16:55 Eosinophils % 0 % 12/15/17 06:10 Basophils % 0 % 12/15/17 06:10 Metamyelocytes % 1 % 12/11/17 16:55 Myelocytes % 1 % 12/11/17 16:55 Neutrophils # 19.2 k/uL (1.3-7.7) H 12/15/17 06:10 Neutrophils # (Manual) 23.20 k/uL (1.3-7.7) H 12/11/17 16:55 Lymphocytes # 0.6 k/uL (1.0-4.8) L 12/15/17 06:10 Lymphocytes # (Manual) 1.57 k/uL (1.0-4.8) 12/11/17 16:55 Monocytes # 0.8 k/uL (0-1.0) 12/15/17 06:10 Monocytes # (Manual) 1.31 k/uL (0-1.0) H 12/11/17 16:55 Eosinophils # 0.0 k/uL (0-0.7) 12/15/17 06:10 Basophils # 0.0 k/uL (0-0.2) 12/15/17 06:10 Metamyelocytes # (Man) 0.26 k/uL (0) H 12/11/17 16:55 Myelocytes # (Manual) 0.26 k/uL (0) H 12/11/17 16:55 Nucleated RBCs 0 /100 WBC (0-0) 12/11/17 16:55 Manual Slide Review Performed 12/11/17 16:55 RBC Morphology Normal 12/11/17 16:55 PT 10.1 sec (9.0-12.0) 18 17:23 INR 1.0 (<1.2) 18 17:23 APTT 26.4 sec (22.0-30.0) 12/15/17 17:23 Sample Site [place] 12/11/17 17:34 ABG pH 7.38 (7.35-7.45) 12/11/17 17:34 ABG pCO2 43 mmHg (35-45) 12/11/17 17:34 ABG pO2 89 mmHg (83-108) 12/11/17 17:34 ABG HCO3 25 mmol/L (21-25) 12/11/17 17:34 ABG Total CO2 27 mmol/L (19-24) H 12/11/17 12:13 ABG O2 Saturation 97.0 % (94-97) 12/11/17 17:34 ABG Base Excess 0.2 mmol/L 12/11/17 17:34 ABG Hematocrit 20 % (34.0-46.0) L* 12/11/17 12:13 [place] Test Yes 12/11/17 17:34 ABG Sodium 136 mmol/L (135-146) 12/11/17 12:13 ABG Potassium 4.4 mmol/L (3.4-4.5) 12/11/17 12:13 ABG Ionized Calcium 4.2 mg/dL (4.5-5.3) L 12/11/17 12:13 ABG Glucose 204 mg/dL (75-99) H 12/11/17 12:13 ABG Lactic Acid 2.0 mmol/L (0.5-1.6) H 12/11/17 12:13 Hemoglobin 6.4 gm/dL (11.4-16.0) L* 12/11/17 12:13 FiO2 50 % 12/11/17 17:34 Sodium 133 mmol/L (137-145) L 12/15/17 14:13 Potassium 3.8 mmol/L (3.5-5.1) 12/15/17 14:13 Chloride 107 mmol/L (98-107) 12/15/17 14:13 Carbon Dioxide 17 mmol/L (22-30) L 12/15/17 14:13 Anion Gap 9 mmol/L 12/15/17 14:13 BUN 21 mg/dL (7-17) H 12/15/17 14:13 Creatinine 0.60 mg/dL (0.52-1.04) 12/15/17 14:13 Est GFR (CKD-EPI)AfAm >90 (>60 ml/min/1.73 sqM) 12/15/17 14:13 Est GFR (CKD-EPI)NonAf >90 (>60 ml/min/1.73 sqM) 12/15/17 14:13 Glucose 116 mg/dL (74-99) H 12/15/17 14:13 POC Glucose (mg/dL) 175 mg/dL (75-99) H 12/15/17 20:45 POC Glu [employer] ID Yeni Mejía 12/15/17 20:[address] Glu mg/dL 186 12/08/17 06:55 Hemoglobin A1c 8.1 % (4.0-6.0) H 12/08/17 06:55 Lactic Ac Sepsis Rflx Y 12/15/17 10:17 Plasma Lactic Acid [place] 1.0 mmol/L (0.7-2.0) 12/15/17 18:13 Calcium 8.7 mg/dL (8.4-10.2) 12/15/17 14:13 Ionized Calcium [place] 5.0 mg/dL (4.5-5.3) 12/13/17 04:10 Phosphorus 2.8 mg/dL (2.5-4.5) 12/15/17 06:10 Magnesium 2.5 mg/dL (1.6-2.3) H 12/15/17 06:10 Total Bilirubin 0.7 mg/dL (0.2-1.3) 12/15/17 06:10 AST 59 U/L (14-36) H 12/15/17 06:10 ALT 64 U/L (9-52) H 12/15/17 06:10 Alkaline Phosphatase 168 U/L (38-126) H 12/15/17 06:10 Total Protein 4.6 g/dL (6.3-8.2) L 12/15/17 06:10 Albumin 2.5 g/dL (3.5-5.0) L 12/15/17 06:10 Triglycerides 89 mg/dL (<150) 12/08/17 06:55 Cholesterol 129 mg/dL (<200) 12/08/17 06:55 LDL Cholesterol, Calc 45 mg/dL (0-99) 12/08/17 06:55 HDL Cholesterol 66 mg/dL (40-60) H 12/08/17 06:55 Amylase <30 U/L (30-110) L 12/14/17 15:37 Lipase 25 U/L (23-300) 12/14/17 15:37 TSH 2.940 mIU/L (0.465-4.680) 12/08/17 06:55 Arterial Blood Potassium 4.4 mmol/L (3.4-4.5) 12/11/17 12:13 Arterial Blood Glucose 204 mg/dL (75-99) H 12/11/17 12:13 Urine Color Yellow 12/08/17 12:00 Urine Appearance Cloudy (Clear) H 12/08/17 12:00 Urine pH 7.5 (5.0-8.0) 12/08/17 12:00 Ur Specific [place] 1.044 (1.001-1.035) H 12/08/17 12:00 Urine Protein Negative (Negative) 12/08/17 12:00 Urine Glucose (UA) Negative (Negative) 12/08/17 12:00 Urine Ketones Negative (Negative) 12/08/17 12:00 Urine Blood Moderate (Negative) H 12/08/17 12:00 Urine Nitrite Negative (Negative) 12/08/17 12:00 Urine Bilirubin Negative (Negative) 12/08/17 12:00 Urine Urobilinogen <2.0 mg/dL (<2.0) 12/08/17 12:00 Ur Leukocyte Esterase Small (Negative) H 12/08/17 12:00 Urine RBC 2 /hpf (0-5) 12/08/17 12:00 Urine WBC 3 /hpf (0-5) 12/08/17 12:00 Ur Squamous Epith Cells 1 /hpf (0-4) 12/08/17 12:00 Urine Bacteria Occasional /hpf (None) H 12/08/17 12:00 Urine Mucus Rare /hpf (None) H 12/08/17 12:00 C. difficile (EIA) Intrp Negative (Negative) 12/15/17 00:30 Hepatitis A IgM Ab Non-Reactive (Non-Reactive) 12/08/17 06:55 Hep Bs Antigen Non-Reactive (Non-Reactive) 12/08/17 06:55 Hep B Core IgM Ab Non-Reactive (Non-Reactive) 12/08/17 06:55 Hep C IgG Ab Non-Reactive (Non-Reactive) 12/08/17 06:55 Blood Type B Positive 12/10/17 05:38 Blood Type Confirm B Positive 12/10/17 10:21 Blood Type Recheck CABO Indicated 12/10/17 05:38 Antibody Screen NEGATIVE 12/10/17 05:38 Crossmatch See Detail 12/10/17 05:38 Transfuse Platelets 12/11/17 12/10/17 05:38 Spec Expiration Date 12/13/2017 - 2338 12/10/17 05:38 Microbiology 12/15/17 14:15 Stool Stool Culture - Preliminary 12/13/17 22:12 Blood Blood Culture - Preliminary No Growth after 24 hours 12/12/17 17:00 Urine,Catheterized Urine Culture - Final 12/08/17 12:00 Urine,Clean Catch Urine Culture - Final Escherichia coli 12/08/17 12:00 Nasal Swab Nasal Screen MRSA/MSSA - Final Assessment and Plan (1) E. coli sepsis Narrative/Plan: 72 year old woman with history of CAD failed stress test now s/p CABG and was progressing but developed fever to 102. Found to have UTI and is now improving. He doesn't history of chronic back pain been of some contention over the last day because of excess sedation from her pain medications. She currently is on minimal premedication with orders to ensure that she is at least sitting up and getting some ambulation. Her shortness of breath is definitely improved her chest is without significant pain. She does have a history of urinary tract infections in the past, since the Almaguer is out she has some minimal discomfort but does not feel miserable. She's had difficulty with incontinence since the Almaguer has been removed, bladder scan was performed with only 200 mL noted. She does have a urine culture with Escherichia coli that is resistant to quinolone therapy. With her fever the antibiotic therapy was enhance Zosyn and vancomycin. Sternal wound does not appear to be infected at the moment does not seem to have pneumonia. 12/15/2017 reveals the patient to have a change of her status in that she developed abdominal pain as well as worsening of her status. This concerns to ischemic colitis and she was moved to the intensive care unit. She's been seen by general surgery. It is being monitored. She had worsening lactic acidosis is now showing improvement after fluid challenge. She is not having chest pain and her shortness of breath continues to improve. Blood cultures are negative but urine culture did have E. coli years that she does have significant underlying infection in the urinary system. Treatment has been with Zosyn which should also cover ischemic colitis at that is occurring at this time. There are concerns to bowel compromise possibly for microemboli in the postoperative time frame. With this heparin has been started. Cultures are process and she'll be monitored. Her significant leukocytosis showing some slight improvement. Current Visit: Yes Status: Acute Code(s): A41.51 - SEPSIS DUE TO ESCHERICHIA COLI [E. COLI] SNOMED Code(s): 550065075 (2) Urinary tract infection Current Visit: Yes Status: Acute Code(s): N39.0 - URINARY TRACT INFECTION, SITE NOT SPECIFIED SNOMED Code(s): 53590613 (3) Coronary artery disease involving left main coronary artery Current Visit: Yes Status: Chronic Code(s): I25.10 - ATHSCL HEART DISEASE OF [place] CORONARY ARTERY W/O ANG PCTRS SNOMED Code(s): 388282239 (4) Fever Current Visit: Yes Status: Acute Code(s): R50.9 - FEVER, UNSPECIFIED SNOMED Code(s): 618801537
[2017-12-15 23:33] LABS: Partial Thromboplastin Time 41.4 sec (22.0-30.0); Prothrombin Time 10.1 sec (9.0-12.0)
[2017-12-15] MEDS: HEPARIN SODIUM,PORCINE 5,000 UNIT/ML 1 ML VIAL IV PRN (23:38)
[2017-12-16] MEDS ORDERED: POTASSIUM CHLORIDE ER 20 MEQ TAB.ER PO SCH
[2017-12-16] MEDS: HYDROcodone/APAP 5-325MG 1 EACH TAB PO PRN (00:23)
[2017-12-16] MEDS: PIPERACILLIN-TAZOBACTAM 3.375 GM in DEXTROSE/WATER 1 50ML.BAG IVPB SCH ×3 (00:23→16:22)
[2017-12-16 04:21] LABS: Glucose,Whole Blood 139 mg/dL (75-99)
[2017-12-16 05:49] LABS: Basophils # (A) 0.1 k/uL (0-0.2); Basophils % (A) 0 %; Eosinophils # (A) 0.2 k/uL (0-0.7); Eosinophils % (A) 1 %; HGB 7.6 gm/dL (11.4-16.0); Lymphocytes % (A) 5 %; MCH 27.4 pg (25.0-35.0); MCHC 32.9 g/dL (31.0-37.0); MCV 83.2 fL (80.0-100.0); Mean Platelet Volume 8.1; Monocytes # (A) 0.9 k/uL (0-1.0); Monocytes % (A) 5 %; Neutrophils # (A) 17.9 k/uL (1.3-7.7); Neutrophils % (A) 88 %; Platelet Count 303 k/uL (150-450); RBC 2.76 m/uL (3.80-5.40); RDW 15.3 % (11.5-15.5); WBC 20.2 k/uL (3.8-10.6)
[2017-12-16 06:02] LABS: ALT 57 U/L (9-52); AST 47 U/L (14-36); Albumin 2.5 g/dL (3.5-5.0); Alkaline Phosphatase 178 U/L (38-126); Anion Gap 6 mmol/L; Blood Urea Nitrogen 16 mg/dL (7-17); Calcium 8.5 mg/dL (8.4-10.2); Carbon Dioxide 18 mmol/L (22-30); Chloride 110 mmol/L (98-107); Glucose 128 mg/dL (74-99); Magnesium 2.3 mg/dL (1.6-2.3); Potassium 3.9 mmol/L (3.5-5.1); Sodium 134 mmol/L (137-145); Total Bilirubin 0.8 mg/dL (0.2-1.3); Total Protein 4.6 g/dL (6.3-8.2)
--- NOTE | 2017-12-16 06:06 | XR ---
EXAMINATION TYPE: XR chest 1V DATE OF EXAM: 12/16/2017 HISTORY: shortness of breath. REFERENCE: Previous study dated 12/15/2017. FINDINGS: There has been a midline sternotomy. The heart is enlarged. There is vascular congestion and pulmonary edema. I suspect a small left effus ion. IMPRESSION: WORSENING CHANGES OF PULMONARY EDEMA.
[2017-12-16] MEDS: D5-0.45% NACL WITH KCL 20MEQ/L 1,000 ML IV SCH ×2 (06:38→19:07)
[2017-12-16] MEDS: LEVOTHYROXINE 75 MCG TAB PO SCH (06:38)
[2017-12-16] MEDS: IPRATROPIUM-ALBUTEROL 3 ML NEB INHALATION SCH ×4 (08:43→19:38)
--- NOTE | 2017-12-16 08:57 | P.PN ---
Subjective Progress Note Date: 12/16/17 Principal diagnosis: Coronary artery disease. Status post coronary artery bypass grafting. Mrs. Sellers is a 72-year-old white female patient of Dr. Alcala who was undergoing cardiac evaluation for clearance for her upcoming right rotator cuff repair, was found to have inferoseptal ischemia on the nuclear stress test. Cardiac catheterization showed left main disease of 60-70%, extending into the proximal circumflex, mid LAD of 70%, and 70% ostial lesion of the left circumflex, and no significant right coronary artery disease. She was recommended surgical intervention for which she is scheduled on Monday, on 12/11. Past medical history is positive for diabetes mellitus type 2, hypertension, hyperlipidemia, hypothyroidism, peripheral vascular disease status post right fem-pop bypass, previous nicotine dependence, quit smoking 10 years ago, carries 20-lmge-ndhu smoking history, DVT with previous Coumadin use , paroxysmal atrial fibrillation, chronic back pain, obesity and depression. Patient had a spirometry PFT in November 2016 which showed FEV1 of 109%. We are seeing this patient in consultation for pulmonary management for the upcoming coronary artery bypass grafting surgery. Patient is seen today 12/14/2017 in follow-up on the selective care unit. She is now status post coronary artery bypass grafting including a CHARLES sequentially to the diagonal artery and LAD, reverse saphenous vein grafts to the first obtuse marginal and third obtuse marginal arteries. She is postoperative day #3. She is awake and alert in no acute distress. She is doing quite well. She denies any worsening shortness of breath, cough or congestion. She is working well with the incentive spirometer. Continue good O2 saturations in the high 90s on 3 L/m per nasal cannula. Chest x-ray reveals minimal pulmonary vascular congestion and some basilar atelectasis. White count 17.7. Hemoglobin 7.8. Creatinine 0.71. The patient is seen again today 12/15/2017 in follow-up on the selective care unit. This is postoperative day #4. She is currently resting quite comfortably in bed. She denies any worsening shortness of breath. She has a loose nonproductive cough. She is maintaining good O2 saturations in the mid 90s on room air. She's been afebrile. Computed tomography scan of the abdomen revealed mild wall thickening and pericolonic stranding right hemicolon at the level of the cecum may reflect nonspecific colitis. White count 20.8. Hemoglobin 8.0. Creatinine 0.60. AST 59, ALT 64, alk phos 168. She has had issues with diarrhea. She is currently on vancomycin and Zosyn. Thousand 18 in follow-up in the intensive care unit. She was transferred here yesterday afternoon after developing liquid diarrhea, weakness and tachypnea. C. difficile screen was negative. She is stool occult positive. Computed tomography scan of the abdomen suggested mild ischemic colitis. She had been seen and evaluated by surgical services. There is some concern regarding hypo- profusion or possibly even microvascular emboli intraoperatively. No plans for surgical intervention at this time. She is currently on vancomycin and Zosyn. She is also on D5.45 with 20 KCl at 80 MLS per hour. Heparin per weight base protocol. 0.9 normal saline at KVO. He is on 2 L/m per nasal cannula. Today' s chest x-ray reveals bilateral infiltrates left greater than right and questionable pneumonia. Cultures revealing no growth. Stool culture is pending. White count 20.2. Hemoglobin 7.6. Creatinine 0.50. AST 47, ALT 57, alk phos 178. She is having ongoing issues with altered mental status as well. She needs increased encouragement to utilize incentive spirometer. Objective - Vital Signs Vital signs: Vital Signs Temp 98.3 F 12/16/17 04:00 Pulse 80 12/16/17 07:00 Resp 22 12/16/17 07:00 BP 148/66 12/16/17 07:00 Pulse Ox 97 12/16/17 07:00 Intake & Output 12/15/17 12/16/17 12/16/17 18:59 06:59 18:59 Intake Total 677.0 1744.0 110 Output Total 950 4 50 Balance -273.0 1740.0 60 Weight 84.5 kg Intake: IV 917.5 80 D5-0.45% NaCl with KCl 880 80 20Meq/l 1,000 ml @ 80 mls /hr IV .[id number] [facility] Rx#: [id number] Piperacillin-Tazobactam 3 37.5 .375 gm In Dextrose/Water 1 50ml.bag @ 12.5 mls/hr IVPB Q8HR [facility] Rx#: [id number] Intake, IV Titration 205.0 706.5 Amount D5-0.45% NaCl with KCl 80 80 20Meq/l 1,000 ml @ 80 mls /hr IV .[id number] [facility] Rx#: [id number] Heparin Sod,Pork in 0.45% 114 NaCl 25,000 unit In 0.45 % NaCl 1 500ml.bag @ 11.1 UNITS/KG/HR 20 mls/hr IV .Q24H [facility] Rx#:[id number] Lactated Ringers 1,000 ml 100 @ 50 mls/hr IV .Q20H [facility] Rx#:[id number] Piperacillin-Tazobactam 3 25.0 12.5 .375 gm In Dextrose/Water 1 50ml.bag @ 12.5 mls/hr IVPB Q8HR [facility] Rx#: [id number] Sodium Chloride 0.9% 500 500 ml @ 999 mls/hr IV .Q31M [facility] Rx#:[id number] Oral 472 120 30 Output: Urine 950 1 Stool 3 50 Other: Voiding Method Bedpan Bedpan Diaper Diaper # Voids 1 1 # Bowel Movements 1 3 ABP, PAP, CO, CI - Last Documented Arterial Blood Pressure 122/59 Pulmonary Artery Pressure 4/4 Cardiac Output 4.5 Cardiac Index 2.5 - Exam - Constitutional General appearance: Present: Altered mental status and the week - Respiratory Details: Lungs sounds scattered rhonchi bilaterally, crackles in the posterior bases.. Respirations even, nonlabored. Currently on 2 L/m with oxygen saturation 98%. Able to achieve 7223-5096 mL on her incentive spirometry. Effective cough. - Cardiovascular Details: S1, S2 present. Regular rate and rhythm, sinus rhythm on telemetry. Palpable peripheral pulses bilaterally. No edema present. No calf pain or tenderness noted. - Gastrointestinal Gastrointestinal Comment(s): Abdomen soft, nontender, nondistended. Active bowel sounds 4 quadrants. Tolerating diet. - Genitourinary Genitourinary Comment(s): Continues to void clear, yellow urine. - Integumentary Integumentary Comment(s): Skin is warm and dry with evidence of good perfusion. Left groin soft, nontender, no drainage. - Neurologic Neurologic: Present: CNII-XII intact - Musculoskeletal Musculoskeletal Comment(s): Walks with cane. Musculoskeletal: Present: Weak - Psychiatric Psychiatric: Present: A&O x's 2, - Labs CBC & Chem 7: 12/16/17 05:31 12/16/17 05:31 Labs: Abnormal Lab Results - Last 24 Hours (Table) 12/15/17 12/15/17 12/15/17 Range/Units 06:10 09:39 11:32 WBC (3.8-10.6) k/uL RBC (3.80-5.40) m/uL Hgb (11.4-16.0) gm/dL Hct (34.0-46.0) % Neutrophils # (1.3-7.7) k/uL APTT (22.0-30.0) sec Sodium (137-145) mmol/L Chloride (98-107) mmol/L Carbon Dioxide (22-30) mmol/L BUN (7-17) mg/dL Creatinine (0.52-1.04) mg/dL Glucose (74-99) mg/dL POC Glucose (mg/dL) 176 H (75-99) mg/dL Plasma Lactic Acid Frederick 2.1 H* (0.7-2.0) mmol/L Phosphorus (2.5-4.5) mg/dL Magnesium 2.5 H (1.6-2.3) mg/dL AST (14-36) U/L ALT (9-52) U/L Alkaline Phosphatase (38-126) U/L Total Protein (6.3-8.2) g/dL Albumin (3.5-5.0) g/dL Stool Occult Blood (Negative) 12/15/17 12/15/17 12/15/17 Range/Units 14:13 14:13 16:02 WBC (3.8-10.6) k/uL RBC (3.80-5.40) m/uL Hgb (11.4-16.0) gm/dL Hct (34.0-46.0) % Neutrophils # (1.3-7.7) k/uL APTT (22.0-30.0) sec Sodium 133 L (137-145) mmol/L Chloride (98-107) mmol/L Carbon Dioxide 17 L (22-30) mmol/L BUN 21 H (7-17) mg/dL Creatinine (0.52-1.04) mg/dL Glucose 116 H (74-99) mg/dL POC Glucose (mg/dL) 130 H (75-99) mg/dL Plasma Lactic Acid Frederick 3.5 H* (0.7-2.0) mmol/L Phosphorus (2.5-4.5) mg/dL Magnesium (1.6-2.3) mg/dL AST (14-36) U/L ALT (9-52) U/L Alkaline Phosphatase (38-126) U/L Total Protein (6.3-8.2) g/dL Albumin (3.5-5.0) g/dL Stool Occult Blood (Negative) 12/15/17 12/15/17 12/15/17 Range/Units 17:15 20:45 23:07 WBC (3.8-10.6) k/uL RBC (3.80-5.40) m/uL Hgb (11.4-16.0) gm/dL Hct (34.0-46.0) % Neutrophils # (1.3-7.7) k/uL APTT 41.4 H (22.0-30.0) sec Sodium (137-145) mmol/L Chloride (98-107) mmol/L Carbon Dioxide (22-30) mmol/L BUN (7-17) mg/dL Creatinine (0.52-1.04) mg/dL Glucose (74-99) mg/dL POC Glucose (mg/dL) 136 H 175 H (75-99) mg/dL Plasma Lactic Acid Frederick (0.7-2.0) mmol/L Phosphorus (2.5-4.5) mg/dL Magnesium (1.6-2.3) mg/dL AST (14-36) U/L ALT (9-52) U/L Alkaline Phosphatase (38-126) U/L Total Protein (6.3-8.2) g/dL Albumin (3.5-5.0) g/dL Stool Occult Blood (Negative) 12/16/17 12/16/17 12/16/17 Range/Units 04:19 04:45 05:31 WBC 20.2 H (3.8-10.6) k/uL RBC 2.76 L (3.80-5.40) m/uL Hgb 7.6 L (11.4-16.0) gm/dL Hct 23.0 L (34.0-46.0) % Neutrophils # 17.9 H (1.3-7.7) k/uL APTT (22.0-30.0) sec Sodium (137-145) mmol/L Chloride (98-107) mmol/L Carbon Dioxide (22-30) mmol/L BUN (7-17) mg/dL Creatinine (0.52-1.04) mg/dL Glucose (74-99) mg/dL POC Glucose (mg/dL) 139 H (75-99) mg/dL Plasma Lactic Acid Frederick (0.7-2.0) mmol/L Phosphorus (2.5-4.5) mg/dL Magnesium (1.6-2.3) mg/dL AST (14-36) U/L ALT (9-52) U/L Alkaline Phosphatase (38-126) U/L Total Protein (6.3-8.2) g/dL Albumin (3.5-5.0) g/dL Stool Occult Blood Positive H (Negative) 12/16/17 12/16/17 Range/Units 05:31 05:31 WBC (3.8-10.6) k/uL RBC (3.80-5.40) m/uL Hgb (11.4-16.0) gm/dL Hct (34.0-46.0) % Neutrophils # (1.3-7.7) k/uL APTT 47.4 H (22.0-30.0) sec Sodium 134 L (137-145) mmol/L Chloride 110 H (98-107) mmol/L Carbon Dioxide 18 L (22-30) mmol/L BUN (7-17) mg/dL Creatinine 0.50 L (0.52-1.04) mg/dL Glucose 128 H (74-99) mg/dL POC Glucose (mg/dL) (75-99) mg/dL Plasma Lactic Acid Frederick (0.7-2.0) mmol/L Phosphorus 2.0 L (2.5-4.5) mg/dL Magnesium (1.6-2.3) mg/dL AST 47 H (14-36) U/L ALT 57 H (9-52) U/L Alkaline Phosphatase 178 H (38-126) U/L Total Protein 4.6 L (6.3-8.2) g/dL Albumin 2.5 L (3.5-5.0) g/dL Stool Occult Blood (Negative) Microbiology - Last 24 Hours (Table) 12/13/17 22:12 Blood Culture - Preliminary Blood No Growth after 48 hours 12/15/17 14:15 Stool Culture - Preliminary Stool Assessment and Plan Assessment: Impression: #1. Multivessel coronary artery disease, involving left main coronary artery. Status post coronary artery bypass grafting. Postoperative day #5. #2. Acute sepsis with mild colitis and ongoing diarrhea, possible bilateral infiltrates suspect pneumonia. E. coli urinary tract infection. Currently on vancomycin and Zosyn. #3. Hyperlipidemia #4. Diabetes mellitus 2 #5. Obesity #6. Peripheral vascular disease #7. History of nicotine dependence, currently in remission, quit 10 years ago, carries 10-lydn-smwg smoking history #8. Hypothyroidism #9. Paroxysmal atrial fibrillation, currently in sinus rhythm #10. Chronic low back pain #11. Depression #12. Urinary tract infection secondary to E. coli, follow-up culture negative Plan: The patient was seen and evaluated by Dr. Griffin. Chest x-ray and labs were reviewed. Continue with her current antibiotics including vancomycin and Zosyn. Obtain a lactic acid level. Continue to work with her and encourage the increased use the incentive spirometer. Continue to follow her closely here in the intensive care unit. We will continue to follow and make further recommendations based on her clinical status. Critical care time 35 minutes. I, the cosigning physician, performed a history & physical examination of the patient. Lungs sounds with bilateral scattered rhonchi, crackles in the bases. Maintaining good O2 saturations in the 90s on 2L per nasal canula. I discussed the assessment and plan of care with my nurse practitioner, Anne Marie Javed. I attest to the above note as dictated by her. Time with Patient: Greater than 30
[2017-12-16] MEDS ORDERED: ASPIRIN 81 MG PO SCH (09:00)
[2017-12-16] MEDS ORDERED: VANCOMYCIN TROUGH DUE 1 EACH MISC MISCELLANE ONE (09:00)
[2017-12-16] MEDS: INSULIN ASPART 100 UNIT/ML 1 ML 10 ML VIAL SQ SCH ×4 (09:09→21:10)
[2017-12-16] MEDS: POTASSIUM PHOSPHATE 10 MMOL in SODIUM CHLORIDE 0.9% 250 ML IV SCH ×2 (09:10→11:58)
[2017-12-16] MEDS: AMIODARONE 200 MG TAB PO SCH ×2 (09:13→21:03)
[2017-12-16] MEDS: PANTOPRAZOLE 40 MG TABLET PO SCH (09:13)
[2017-12-16] MEDS: METOPROLOL TARTRATE 25 MG TAB PO SCH ×2 (09:13→21:03)
[2017-12-16] MEDS: DULoxetine HCL 60 MG CAPSULE.DR PO SCH (09:14)
[2017-12-16] MEDS: ASPIRIN 81 MG PO SCH (09:14)
[2017-12-16] MEDS: ATORVASTATIN 40 MG TAB PO SCH (09:14)
--- NOTE | 2017-12-16 10:09 | P.PN ---
Subjective Progress Note Date: 12/16/17 Principal diagnosis: Coronary artery disease with critical left main disease. Preserved left ventricular function. Previous medical history of hypertension, hyperlipidemia , diabetes mellitus with preoperative hemoglobin A1c 8.1%, hypothyroid, chest granulomatous disease, peripheral vascular disease status post right fem-pop bypass, previous tobacco dependence with preoperative FEV1 109% of predicted in November 2016, recent fall in June 2017 with torn right rotator cuff, questionable DVT with previous Coumadin use greater than 2 years ago, syncopal episodes, history of paroxysmal atrial fibrillation, chronic low back pain, obesity, depression and preoperative E. coli urinary tract infection. POD #5 urgent quadruple coronary artery bypass grafting using the left internal mammary artery sequentially to the diagonal coronary artery and to the left anterior descending coronary artery, a reverse greater saphenous vein graft from the aorta to the first obtuse marginal coronary artery, a reverse greater saphenous vein graft from the aorta to the third obtuse marginal coronary artery. Bilateral pulmonary vein isolation using the AtriCure radiofrequency clamp. Exclusion of the left atrial appendage using a 35 mm AtriClip. Intraoperative transesophageal echocardiogram and epi-aortic scanning. Postoperative elevation in transaminases, an unexpected outcome, resolving. Leukocytosis, present preoperatively. Postoperative diarrhea, an unexpected outcome. Patient is currently sitting up to bedside chair. She is in no acute distress. She was transferred to the intensive care unit yesterday due to increased episodes in liquid stool, altered mental status, increasing lactic acid level is high as 3.5 mmol/L and concerns for ischemic colitis. This morning the patient is still having episodes of restlessness and periods of confusion. She is currently alert and oriented to person and place. She is on 2 L nasal cannula of oxygen and her oxygen saturation saturations are 100%. She denies any complaints of pain at this time although reports that she feels quite gassy and has had frequent liquid stools. She was bladder scanned last evening and straight cath for 950 mL of clear noah urine. This morning a bladder scan was completed which demonstrated around 400 mL of urine and she states she doesn't have any urge to urinate. Objective - Vital Signs Vital signs: Vital Signs Temp 98.1 F 12/16/17 08:00 Pulse 95 12/16/17 08:55 Resp 23 12/16/17 08:30 BP 133/72 12/16/17 08:30 Pulse Ox 99 12/16/17 08:00 Intake & Output 12/15/17 12/16/17 12/16/17 18:59 06:59 18:59 Intake Total 677.0 1744.0 110 Output Total 950 4 50 Balance -273.0 1740.0 60 Weight 84.5 kg Intake: IV 917.5 80 D5-0.45% NaCl with KCl 880 80 20Meq/l 1,000 ml @ 80 mls /hr IV .[id number] [facility] Rx#: [id number] Piperacillin-Tazobactam 3 37.5 .375 gm In Dextrose/Water 1 50ml.bag @ 12.5 mls/hr IVPB Q8HR [facility] Rx#: [id number] Intake, IV Titration 205.0 706.5 Amount D5-0.45% NaCl with KCl 80 80 20Meq/l 1,000 ml @ 80 mls /hr IV .[id number] [facility] Rx#: [id number] Heparin Sod,Pork in 0.45% 114 NaCl 25,000 unit In 0.45 % NaCl 1 500ml.bag @ 11.1 UNITS/KG/HR 20 mls/hr IV .Q24H [facility] Rx#:[id number] Lactated Ringers 1,000 ml 100 @ 50 mls/hr IV .Q20H [facility] Rx#:[id number] Piperacillin-Tazobactam 3 25.0 12.5 .375 gm In Dextrose/Water 1 50ml.bag @ 12.5 mls/hr IVPB Q8HR [facility] Rx#: [id number] Sodium Chloride 0.9% 500 500 ml @ 999 mls/hr IV .Q31M [facility] Rx#:[id number] Oral 472 120 30 Output: Urine 950 1 Stool 3 50 Other: Voiding Method Bedpan Bedpan Diaper Diaper # Voids 1 1 # Bowel Movements 1 3 ABP, PAP, CO, CI - Last Documented Arterial Blood Pressure 122/59 Pulmonary Artery Pressure 4/4 Cardiac Output 4.5 Cardiac Index 2.5 - Constitutional Constitutional Comment(s): Episodes of restlessness. General appearance: Present: cooperative, no acute distress, obese - Respiratory Details: Lung sounds with few scattered crackles to her bilateral bases. Respirations are symmetrical and unlabored. Oxygen saturations are 100% on 2 L nasal cannula. Achieving 1000 ml on her incentive spirometry with encouragement. - Cardiovascular Details: Regular rhythm and rate. S1 and S2 present, negative for S3, gallop or murmur. Bedside telemetry showing normal sinus rhythm heart rate 87. Sternum stable. Heart hugger and mammary support in place. Demonstrating appropriate use on heart hugger with encouragement. Knee-high KURT hose and sequential compression devices in place to her bilateral lower extremities. No edema present. - Gastrointestinal Gastrointestinal Comment(s): Abdomen is soft, nondistended, right lower quadrant abdominal pain with palpation. No organomegaly. Hypoactive bowel sounds to all 4 abdominal quadrants. Frequent liquid stools, brown in color. FMS in place. Nothing by mouth. - Genitourinary Genitourinary Comment(s): Urinary retention, bladder scan for 950 mL with straight cath for 950 mL last p.m. Bladder scan this a.m. with over 400 mL of urine. - Integumentary Integumentary Comment(s): Skin is warm and dry. No clubbing or cyanosis present. Midline sternal incision clean dry and approximated. No drainage or redness present. Left leg EVH site clean dry and approximated. No drainage or redness present. Left thigh ecchymosis soft palpate. - Neurologic Neurologic: Present: CNII-XII intact - Musculoskeletal Musculoskeletal: Present: generalized weakness, strength equal bilaterally - Psychiatric Psychiatric Comment(s): Episodes of confusion. Oriented to place and person. - Allied health notes Allied health notes reviewed: nursing - Labs CBC & Chem 7: 12/16/17 05:31 12/16/17 05:31 Labs: Abnormal Lab Results - Last 24 Hours (Table) 12/15/17 12/15/17 12/15/17 Range/Units 06:10 09:39 11:32 WBC (3.8-10.6) k/uL RBC (3.80-5.40) m/uL Hgb (11.4-16.0) gm/dL Hct (34.0-46.0) % Neutrophils # (1.3-7.7) k/uL APTT (22.0-30.0) sec Sodium (137-145) mmol/L Chloride (98-107) mmol/L Carbon Dioxide (22-30) mmol/L BUN (7-17) mg/dL Creatinine (0.52-1.04) mg/dL Glucose (74-99) mg/dL POC Glucose (mg/dL) 176 H (75-99) mg/dL Plasma Lactic Acid Frederick 2.1 H* (0.7-2.0) mmol/L Phosphorus (2.5-4.5) mg/dL Magnesium 2.5 H (1.6-2.3) mg/dL AST (14-36) U/L ALT (9-52) U/L Alkaline Phosphatase (38-126) U/L Total Protein (6.3-8.2) g/dL Albumin (3.5-5.0) g/dL Stool Occult Blood (Negative) 12/15/17 12/15/17 12/15/17 Range/Units 14:13 14:13 16:02 WBC (3.8-10.6) k/uL RBC (3.80-5.40) m/uL Hgb (11.4-16.0) gm/dL Hct (34.0-46.0) % Neutrophils # (1.3-7.7) k/uL APTT (22.0-30.0) sec Sodium 133 L (137-145) mmol/L Chloride (98-107) mmol/L Carbon Dioxide 17 L (22-30) mmol/L BUN 21 H (7-17) mg/dL Creatinine (0.52-1.04) mg/dL Glucose 116 H (74-99) mg/dL POC Glucose (mg/dL) 130 H (75-99) mg/dL Plasma Lactic Acid Frederick 3.5 H* (0.7-2.0) mmol/L Phosphorus (2.5-4.5) mg/dL Magnesium (1.6-2.3) mg/dL AST (14-36) U/L ALT (9-52) U/L Alkaline Phosphatase (38-126) U/L Total Protein (6.3-8.2) g/dL Albumin (3.5-5.0) g/dL Stool Occult Blood (Negative) 12/15/17 12/15/17 12/15/17 Range/Units 17:15 20:45 23:07 WBC (3.8-10.6) k/uL RBC (3.80-5.40) m/uL Hgb (11.4-16.0) gm/dL Hct (34.0-46.0) % Neutrophils # (1.3-7.7) k/uL APTT 41.4 H (22.0-30.0) sec Sodium (137-145) mmol/L Chloride (98-107) mmol/L Carbon Dioxide (22-30) mmol/L BUN (7-17) mg/dL Creatinine (0.52-1.04) mg/dL Glucose (74-99) mg/dL POC Glucose (mg/dL) 136 H 175 H (75-99) mg/dL Plasma Lactic Acid Frederick (0.7-2.0) mmol/L Phosphorus (2.5-4.5) mg/dL Magnesium (1.6-2.3) mg/dL AST (14-36) U/L ALT (9-52) U/L Alkaline Phosphatase (38-126) U/L Total Protein (6.3-8.2) g/dL Albumin (3.5-5.0) g/dL Stool Occult Blood (Negative) 12/16/17 12/16/17 12/16/17 Range/Units 04:19 04:45 05:31 WBC 20.2 H (3.8-10.6) k/uL RBC 2.76 L (3.80-5.40) m/uL Hgb 7.6 L (11.4-16.0) gm/dL Hct 23.0 L (34.0-46.0) % Neutrophils # 17.9 H (1.3-7.7) k/uL APTT (22.0-30.0) sec Sodium (137-145) mmol/L Chloride (98-107) mmol/L Carbon Dioxide (22-30) mmol/L BUN (7-17) mg/dL Creatinine (0.52-1.04) mg/dL Glucose (74-99) mg/dL POC Glucose (mg/dL) 139 H (75-99) mg/dL Plasma Lactic Acid Frederick (0.7-2.0) mmol/L Phosphorus (2.5-4.5) mg/dL Magnesium (1.6-2.3) mg/dL AST (14-36) U/L ALT (9-52) U/L Alkaline Phosphatase (38-126) U/L Total Protein (6.3-8.2) g/dL Albumin (3.5-5.0) g/dL Stool Occult Blood Positive H (Negative) 12/16/17 12/16/17 Range/Units 05:31 05:31 WBC (3.8-10.6) k/uL RBC (3.80-5.40) m/uL Hgb (11.4-16.0) gm/dL Hct (34.0-46.0) % Neutrophils # (1.3-7.7) k/uL APTT 47.4 H (22.0-30.0) sec Sodium 134 L (137-145) mmol/L Chloride 110 H (98-107) mmol/L Carbon Dioxide 18 L (22-30) mmol/L BUN (7-17) mg/dL Creatinine 0.50 L (0.52-1.04) mg/dL Glucose 128 H (74-99) mg/dL POC Glucose (mg/dL) (75-99) mg/dL Plasma Lactic Acid Frederick (0.7-2.0) mmol/L Phosphorus 2.0 L (2.5-4.5) mg/dL Magnesium (1.6-2.3) mg/dL AST 47 H (14-36) U/L ALT 57 H (9-52) U/L Alkaline Phosphatase 178 H (38-126) U/L Total Protein 4.6 L (6.3-8.2) g/dL Albumin 2.5 L (3.5-5.0) g/dL Stool Occult Blood (Negative) Microbiology - Last 24 Hours (Table) 12/13/17 22:12 Blood Culture - Preliminary Blood No Growth after 48 hours 12/15/17 14:15 Stool Culture - Preliminary Stool - Imaging and Cardiology Chest x-ray: report reviewed, image reviewed Assessment and Plan (1) Diarrhea in adult patient Current Visit: Yes Status: Acute Code(s): R19.7 - DIARRHEA, UNSPECIFIED SNOMED Code(s): 48953524 (2) Chronic low back pain Current Visit: Yes Status: Chronic Code(s): M54.5 - LOW BACK PAIN; G89.29 - OTHER CHRONIC PAIN SNOMED Code(s): 014362060 (3) Coronary artery disease involving left main coronary artery Current Visit: Yes Status: Chronic Code(s): I25.10 - ATHSCL HEART DISEASE OF [place] CORONARY ARTERY W/O ANG PCTRS SNOMED Code(s): 469350242 (4) Diabetes Current Visit: Yes Status: Chronic Code(s): E11.9 - TYPE 2 DIABETES MELLITUS WITHOUT COMPLICATIONS SNOMED Code(s): 69377306 (5) Family history of heart disease Current Visit: Yes Status: Chronic Code(s): Z82.49 - FAMILY HX OF [place] HEART DIS AND OTH DIS OF THE CIRC SYS SNOMED Code(s): 625274491 (6) Hyperlipidemia Current Visit: Yes Status: Chronic Code(s): E78.5 - HYPERLIPIDEMIA, UNSPECIFIED SNOMED Code(s): 56956201 (7) Hypertension Current Visit: Yes Status: Chronic Code(s): I10 - ESSENTIAL (PRIMARY) HYPERTENSION SNOMED Code(s): 70653850 (8) Hypothyroid Current Visit: Yes Status: Chronic Code(s): E03.9 - HYPOTHYROIDISM, UNSPECIFIED SNOMED Code(s): 91415737 (9) Peripheral vascular disease Current Visit: Yes Status: Chronic Code(s): I73.9 - PERIPHERAL VASCULAR DISEASE, UNSPECIFIED SNOMED Code(s): 489047556 (10) History of DVT (deep vein thrombosis) Current Visit: No Status: Resolved Code(s): Z86.718 - PERSONAL HISTORY OF OTHER VENOUS THROMBOSIS AND EMBOLISM SNOMED Code(s): 006101698 (11) History of atrial fibrillation Current Visit: No Status: Resolved Code(s): Z86.79 - PERSONAL HISTORY OF OTHER DISEASES OF THE CIRCULATORY SYSTEM SNOMED Code(s): 123428819 (12) Tobacco dependence in remission Current Visit: No Status: Resolved Code(s): F17.201 - NICOTINE DEPENDENCE, UNSPECIFIED, IN REMISSION SNOMED Code(s): 129715919 Plan: 1. Continue low dose aspirin, statin, and beta sheree. Will increase her beta sheree as tolerated. 2. Wean O2 as tolerated. Encourage incentive spirometry use 10 times every hour. 3. Increase activity, ambulate as tolerated. PT/OT/cardiac rehab following. 4. Continue amiodarone for A. fib prophylaxis. Currently on amiodarone 400 mg by mouth twice a day started on 12/12/2017. 5. Continue Zosyn, vancomycin. Dr. Mccartney from infectious disease following. C. difficile culture negative. 6. Monitor daily labs, chest x-rays. 7. GI/DVT prophylaxis. 8. Pain control with current medication regimen. Minimize narcotic usage, utilize IV Tylenol and IV Toradol. Discontinue [place] for altered mental status and episodes of confusion. 9. Bronchodilators management per pulmonology. 10. Insulin/diabetic management per Dr. Yousif. 11. Continue neuro checks. 12. General surgery recommendations per Dr. Crum. May restart full liquid diet per Dr. Crum's recommendations. 13. Patient will need rehab at discharge. Dr. Medrano following. 14. Replace potassium per protocol. 15. Consult urology for continued urinary retention. Place Al[place] catheter for urinary retention. 16. More recommendations to follow based on patient's clinical course. Time with Patient: Greater than 30
--- NOTE | 2017-12-16 10:24 | P.PN ---
Subjective Progress Note Date: 12/16/17 Principal diagnosis: Ischemic colitis Patient transferred to the ICU yesterday because of elevated lactic acid. Doing better today. Denies pain currently. Lactic acid is improved at 1.1. White blood cell count 20.2. Was having multiple loose stools that are nonbloody although stool is positive for occult blood. Tolerating clears. Objective - Vital Signs Vital signs: Vital Signs Temp 98.1 F 12/16/17 08:00 Pulse 86 12/16/17 10:00 Resp 22 12/16/17 10:00 BP 138/69 12/16/17 10:00 Pulse Ox 100 12/16/17 10:00 Intake & Output 12/15/17 12/16/17 12/16/17 18:59 06:59 18:59 Intake Total 677.0 1744.0 672.5 Output Total 950 4 50 Balance -273.0 1740.0 622.5 Weight 84.5 kg Intake: IV 917.5 642.5 0.9 NACL 60 D5-0.45% NaCl with KCl 880 320 20Meq/l 1,000 ml @ 80 mls /hr IV .[id number] WILLIAM Rx#: [id number] Piperacillin-Tazobactam 3 37.5 12.5 .375 gm In Dextrose/Water 1 50ml.bag @ 12.5 mls/hr IVPB Q8HR WILLIAM Rx#: [id number] potassium phosphate 250 Intake, IV Titration 205.0 706.5 Amount D5-0.45% NaCl with KCl 80 80 20Meq/l 1,000 ml @ 80 mls /hr IV .[id number] WILLIAM Rx#: [id number] Heparin Sod,Pork in 0.45% 114 NaCl 25,000 unit In 0.45 % NaCl 1 500ml.bag @ 11.1 UNITS/KG/HR 20 mls/hr IV .Q24H WILLIAM Rx#:[id number] Lactated Ringers 1,000 ml 100 @ 50 mls/hr IV .Q20H WILLIAM Rx#:[id number] Piperacillin-Tazobactam 3 25.0 12.5 .375 gm In Dextrose/Water 1 50ml.bag @ 12.5 mls/hr IVPB Q8HR WILLIAM Rx#: [id number] Sodium Chloride 0.9% 500 500 ml @ 999 mls/hr IV .Q31M ONE Rx#:[id number] Oral 472 120 30 Output: Urine 950 1 0 Stool 3 50 Other: Voiding Method Bedpan Bedpan Diaper Diaper # Voids 1 1 # Bowel Movements 1 3 1 ABP, PAP, CO, CI - Last Documented Arterial Blood Pressure 122/59 Pulmonary Artery Pressure 4/4 Cardiac Output 4.5 Cardiac Index 2.5 - Exam Abdomen: Soft, nontender, nondistended - Labs CBC & Chem 7: 12/16/17 05:31 12/16/17 05:31 Labs: Abnormal Lab Results - Last 24 Hours (Table) 12/15/17 12/15/17 12/15/17 Range/Units 11:32 14:13 14:13 WBC (3.8-10.6) k/uL RBC (3.80-5.40) m/uL Hgb (11.4-16.0) gm/dL Hct (34.0-46.0) % Neutrophils # (1.3-7.7) k/uL APTT (22.0-30.0) sec Sodium 133 L (137-145) mmol/L Chloride (98-107) mmol/L Carbon Dioxide 17 L (22-30) mmol/L BUN 21 H (7-17) mg/dL Creatinine (0.52-1.04) mg/dL Glucose 116 H (74-99) mg/dL POC Glucose (mg/dL) 176 H (75-99) mg/dL Plasma Lactic Acid Frederick 3.5 H* (0.7-2.0) mmol/L Phosphorus (2.5-4.5) mg/dL AST (14-36) U/L ALT (9-52) U/L Alkaline Phosphatase (38-126) U/L Total Protein (6.3-8.2) g/dL Albumin (3.5-5.0) g/dL Stool Occult Blood (Negative) 12/15/17 12/15/17 12/15/17 Range/Units 16:02 17:15 20:45 WBC (3.8-10.6) k/uL RBC (3.80-5.40) m/uL Hgb (11.4-16.0) gm/dL Hct (34.0-46.0) % Neutrophils # (1.3-7.7) k/uL APTT (22.0-30.0) sec Sodium (137-145) mmol/L Chloride (98-107) mmol/L Carbon Dioxide (22-30) mmol/L BUN (7-17) mg/dL Creatinine (0.52-1.04) mg/dL Glucose (74-99) mg/dL POC Glucose (mg/dL) 130 H 136 H 175 H (75-99) mg/dL Plasma Lactic Acid Frederick (0.7-2.0) mmol/L Phosphorus (2.5-4.5) mg/dL AST (14-36) U/L ALT (9-52) U/L Alkaline Phosphatase (38-126) U/L Total Protein (6.3-8.2) g/dL Albumin (3.5-5.0) g/dL Stool Occult Blood (Negative) 12/15/17 12/16/17 12/16/17 Range/Units 23:07 04:19 04:45 WBC (3.8-10.6) k/uL RBC (3.80-5.40) m/uL Hgb (11.4-16.0) gm/dL Hct (34.0-46.0) % Neutrophils # (1.3-7.7) k/uL APTT 41.4 H (22.0-30.0) sec Sodium (137-145) mmol/L Chloride (98-107) mmol/L Carbon Dioxide (22-30) mmol/L BUN (7-17) mg/dL Creatinine (0.52-1.04) mg/dL Glucose (74-99) mg/dL POC Glucose (mg/dL) 139 H (75-99) mg/dL Plasma Lactic Acid Frederick (0.7-2.0) mmol/L Phosphorus (2.5-4.5) mg/dL AST (14-36) U/L ALT (9-52) U/L Alkaline Phosphatase (38-126) U/L Total Protein (6.3-8.2) g/dL Albumin (3.5-5.0) g/dL Stool Occult Blood Positive H (Negative) 12/16/17 12/16/17 12/16/17 Range/Units 05:31 05:31 05:31 WBC 20.2 H (3.8-10.6) k/uL RBC 2.76 L (3.80-5.40) m/uL Hgb 7.6 L (11.4-16.0) gm/dL Hct 23.0 L (34.0-46.0) % Neutrophils # 17.9 H (1.3-7.7) k/uL APTT 47.4 H (22.0-30.0) sec Sodium 134 L (137-145) mmol/L Chloride 110 H (98-107) mmol/L Carbon Dioxide 18 L (22-30) mmol/L BUN (7-17) mg/dL Creatinine 0.50 L (0.52-1.04) mg/dL Glucose 128 H (74-99) mg/dL POC Glucose (mg/dL) (75-99) mg/dL Plasma Lactic Acid Frederick (0.7-2.0) mmol/L Phosphorus 2.0 L (2.5-4.5) mg/dL AST 47 H (14-36) U/L ALT 57 H (9-52) U/L Alkaline Phosphatase 178 H (38-126) U/L Total Protein 4.6 L (6.3-8.2) g/dL Albumin 2.5 L (3.5-5.0) g/dL Stool Occult Blood (Negative) Microbiology - Last 24 Hours (Table) 12/13/17 22:12 Blood Culture - Preliminary Blood No Growth after 48 hours 12/15/17 14:15 Stool Culture - Preliminary Stool Assessment and Plan (1) Ischemic colitis Narrative/Plan: Gradually advance diet. Continue IV antibiotics. Will follow. Current Visit: Yes Status: Acute Code(s): K55.9 - VASCULAR DISORDER OF INTESTINE, UNSPECIFIED SNOMED Code(s): 96418051
[2017-12-16] MEDS: KETOROLAC 30 MG/ML 1 ML VIAL IVP SCH ×2 (11:33→17:40)
--- NOTE | 2017-12-16 12:30 | P.GSCN ---
History of Present Illness Consult date: 12/16/17 Reason for Consult: Urine retention History of present illness: The patient is a 72-year-old female in the ICU postoperatively from a coronary bypass as well as abdominal discomfort of indeterminate etiology. She has had a somewhat howie postoperative course. She presented with chest pains and ended up undergoing open-heart surgery. Apparently she had a urinary tract infection and perhaps urinary retention preoperatively. History is taken primarily from the chart and the nurses a patient is quite confused doubly due to sleep deprivation. She is very lethargic at this point in time. The nursing staff is had to catheterize patient 7 times due to no void or incomplete voiding. Per her daughter the patient has had problems with incomplete , infrequent voiding and urgency incontinence. Per the nursing staff the cath went in easily without any evidence of vaginal prolapse. She had an abdominal CT scan that did not show any evidence of hydronephrosis. Review of Systems ROS unobtainable: due to mental status Past Medical History Past Medical History: Atrial Fibrillation, Coronary Artery Disease (CAD), Diabetes Mellitus, Hyperlipidemia, Hypertension, Osteoarthritis (OA), Thyroid Disorder, Vascular Disorder Additional Past Medical History / Comment(s): Pt. states poor circulation in RLE due to an artificial bypass. SOB, dizzy spells @ times. See Dr. Blackmon' s [facility] & P. Chronic back pain, bilateral shoulder problems. History of Any Multi-Drug Resistant Organisms: None Reported Past Surgical History: Appendectomy, Breast Surgery, Cholecystectomy, Orthopedic Surgery Additional Past Surgical History / Comment(s): Femoral popliteal bypass. Bilateral knee replacements. Left breast surgery for benign tumor. Epidurals to lower back. Past Anesthesia/Blood Transfusion Reactions: No Reported Reaction Past Psychological History: Anxiety, Depression Smoking Status: Former smoker Past Alcohol Use History: Rare Additional Past Alcohol Use History / Comment(s): Quit smoking in 2007, smoked 1 PPD x 42 yrs. patient was at home with her . Past Drug Use History: None Reported - Past Family History Mother Family Medical History: Cancer Additional Family Medical History / Comment(s): Uterine cancer. Medications and Allergies Home Medications Medication Instructions Recorded Confirmed Type Aspirin 81 mg PO HS 12/31/15 12/08/17 History Cilostazol [Pletal] 100 mg PO BID 12/31/15 12/08/17 History DULoxetine HCL [Cymbalta] 60 mg PO DAILY 12/14/16 12/08/17 History Ergocalciferol (Vitamin D2) 50,000 unit PO TUFR 12/14/16 12/08/17 History [Vitamin D2] Levothyroxine Sodium [Synthroid] 75 mcg PO DAILY 12/14/16 12/08/17 History Olmesartan/Hydrochlorothiazide 1 tab PO DAILY 12/14/16 12/08/17 History [Benicar Hct 40-25 mg Tablet] Rosuvastatin [Crestor] 20 mg PO HS 12/14/16 12/08/17 History Ibuprofen [Motrin] 800 mg PO BID 11/21/17 12/08/17 History Cyanocobalamin [Vitamin B-12] 500 mcg PO DAILY 12/04/17 12/08/17 History metFORMIN HCL [Glucophage] 500 mg PO BID 12/04/17 12/08/17 History oxyCODONE HCL [OxyCONTIN] 30 mg PO TID 12/04/17 12/08/17 History Allergies Allergy/AdvReac Type Severity Reaction Status Date / Time No Known Allergies Allergy Verified 12/08/17 06:38 Surgical - Exam Vital Signs Temp Pulse Resp BP Pulse Ox 98.2 F 82 18 153/74 93 L 12/08/17 07:03 12/08/17 07:03 12/08/17 07:03 12/08/17 07:03 12/08/17 07:03 - General well developed, well nourished - Neck no masses - Respiratory normal expansion, normal respiratory effort - Cardiovascular Rhythm: regular - Abdomen Abdomen: soft, non tender - Genitourinary Indwelling catheter with clear urine noted vaginal prolapse Results - Labs 12/16/17 05:31 12/16/17 05:31 Abnormal Lab Results - Last 24 Hours (Table) 12/15/17 12/15/17 12/15/17 Range/Units 14:13 14:13 16:02 WBC (3.8-10.6) k/uL RBC (3.80-5.40) m/uL Hgb (11.4-16.0) gm/dL Hct (34.0-46.0) % Neutrophils # (1.3-7.7) k/uL APTT (22.0-30.0) sec Sodium 133 L (137-145) mmol/L Chloride (98-107) mmol/L Carbon Dioxide 17 L (22-30) mmol/L BUN 21 H (7-17) mg/dL Creatinine (0.52-1.04) mg/dL Glucose 116 H (74-99) mg/dL POC Glucose (mg/dL) 130 H (75-99) mg/dL Plasma Lactic Acid Frederick 3.5 H* (0.7-2.0) mmol/L Phosphorus (2.5-4.5) mg/dL AST (14-36) U/L ALT (9-52) U/L Alkaline Phosphatase (38-126) U/L Total Protein (6.3-8.2) g/dL Albumin (3.5-5.0) g/dL Stool Occult Blood (Negative) 12/15/17 12/15/17 12/15/17 Range/Units 17:15 20:45 23:07 WBC (3.8-10.6) k/uL RBC (3.80-5.40) m/uL Hgb (11.4-16.0) gm/dL Hct (34.0-46.0) % Neutrophils # (1.3-7.7) k/uL APTT 41.4 H (22.0-30.0) sec Sodium (137-145) mmol/L Chloride (98-107) mmol/L Carbon Dioxide (22-30) mmol/L BUN (7-17) mg/dL Creatinine (0.52-1.04) mg/dL Glucose (74-99) mg/dL POC Glucose (mg/dL) 136 H 175 H (75-99) mg/dL Plasma Lactic Acid Frederick (0.7-2.0) mmol/L Phosphorus (2.5-4.5) mg/dL AST (14-36) U/L ALT (9-52) U/L Alkaline Phosphatase (38-126) U/L Total Protein (6.3-8.2) g/dL Albumin (3.5-5.0) g/dL Stool Occult Blood (Negative) 12/16/17 12/16/17 12/16/17 Range/Units 04:19 04:45 05:31 WBC 20.2 H (3.8-10.6) k/uL RBC 2.76 L (3.80-5.40) m/uL Hgb 7.6 L (11.4-16.0) gm/dL Hct 23.0 L (34.0-46.0) % Neutrophils # 17.9 H (1.3-7.7) k/uL APTT (22.0-30.0) sec Sodium (137-145) mmol/L Chloride (98-107) mmol/L Carbon Dioxide (22-30) mmol/L BUN (7-17) mg/dL Creatinine (0.52-1.04) mg/dL Glucose (74-99) mg/dL POC Glucose (mg/dL) 139 H (75-99) mg/dL Plasma Lactic Acid Frederick (0.7-2.0) mmol/L Phosphorus (2.5-4.5) mg/dL AST (14-36) U/L ALT (9-52) U/L Alkaline Phosphatase (38-126) U/L Total Protein (6.3-8.2) g/dL Albumin (3.5-5.0) g/dL Stool Occult Blood Positive H (Negative) 12/16/17 12/16/17 Range/Units 05:31 05:31 WBC (3.8-10.6) k/uL RBC (3.80-5.40) m/uL Hgb (11.4-16.0) gm/dL Hct (34.0-46.0) % Neutrophils # (1.3-7.7) k/uL APTT 47.4 H (22.0-30.0) sec Sodium 134 L (137-145) mmol/L Chloride 110 H (98-107) mmol/L Carbon Dioxide 18 L (22-30) mmol/L BUN (7-17) mg/dL Creatinine 0.50 L (0.52-1.04) mg/dL Glucose 128 H (74-99) mg/dL POC Glucose (mg/dL) (75-99) mg/dL Plasma Lactic Acid Frederick (0.7-2.0) mmol/L Phosphorus 2.0 L (2.5-4.5) mg/dL AST 47 H (14-36) U/L ALT 57 H (9-52) U/L Alkaline Phosphatase 178 H (38-126) U/L Total Protein 4.6 L (6.3-8.2) g/dL Albumin 2.5 L (3.5-5.0) g/dL Stool Occult Blood (Negative) Microbiology - Last 24 Hours (Table) 12/13/17 22:12 Blood Culture - Preliminary Blood No Growth after 48 hours 12/15/17 14:15 Stool Culture - Preliminary Stool Diabetes panel 12/15/17 12/15/17 12/16/17 Range/Units 14:13 23:07 05:31 Sodium 133 L 134 L (137-145) mmol/L Potassium 3.8 3.6 3.9 (3.5-5.1) mmol/L Chloride 107 110 H (98-107) mmol/L Carbon Dioxide 17 L 18 L (22-30) mmol/L BUN 21 H 16 (7-17) mg/dL Creatinine 0.60 0.50 L (0.52-1.04) mg/dL Glucose 116 H 128 H (74-99) mg/dL Calcium 8.7 8.5 (8.4-10.2) mg/dL AST 47 H (14-36) U/L ALT 57 H (9-52) U/L Alkaline Phosphatase 178 H (38-126) U/L Total Protein 4.6 L (6.3-8.2) g/dL Albumin 2.5 L (3.5-5.0) g/dL Calcium panel 12/15/17 12/16/17 Range/Units 14:13 05:31 Calcium 8.7 8.5 (8.4-10.2) mg/dL Phosphorus 2.0 L (2.5-4.5) mg/dL Albumin 2.5 L (3.5-5.0) g/dL Pituitary panel 12/15/17 12/15/17 12/16/17 Range/Units 14:13 23:07 05:31 Sodium 133 L 134 L (137-145) mmol/L Potassium 3.8 3.6 3.9 (3.5-5.1) mmol/L Chloride 107 110 H (98-107) mmol/L Carbon Dioxide 17 L 18 L (22-30) mmol/L BUN 21 H 16 (7-17) mg/dL Creatinine 0.60 0.50 L (0.52-1.04) mg/dL Glucose 116 H 128 H (74-99) mg/dL Calcium 8.7 8.5 (8.4-10.2) mg/dL Adrenal panel 12/15/17 12/15/17 12/16/17 Range/Units 14:13 23:07 05:31 Sodium 133 L 134 L (137-145) mmol/L Potassium 3.8 3.6 3.9 (3.5-5.1) mmol/L Chloride 107 110 H (98-107) mmol/L Carbon Dioxide 17 L 18 L (22-30) mmol/L BUN 21 H 16 (7-17) mg/dL Creatinine 0.60 0.50 L (0.52-1.04) mg/dL Glucose 116 H 128 H (74-99) mg/dL Calcium 8.7 8.5 (8.4-10.2) mg/dL Total Bilirubin 0.8 (0.2-1.3) mg/dL AST 47 H (14-36) U/L ALT 57 H (9-52) U/L Alkaline Phosphatase 178 H (38-126) U/L Total Protein 4.6 L (6.3-8.2) g/dL Albumin 2.5 L (3.5-5.0) g/dL - Imaging CT scan - abdomen: report reviewed, image reviewed Assessment and Plan Assessment: Impression: Urine retention postoperatively. Probable incomplete bladder emptying preoperatively. Status post cardiac bypass. Multiple medical problems Recommendation: I would leave indwelling catheter until she is mentally alert ambulating and medically stable. At that point in time the catheter can be removed for a voiding trial and further urologic assessment can be formed.
[2017-12-16] MEDS: VANCOMYCIN 1,500 MG in SODIUM CHLORIDE 0.9% 250 ML IVPB SCH (12:54)
[2017-12-16] MEDS: ASCORBIC ACID 500 MG TAB PO SCH (12:55)
[2017-12-16] MEDS: FERROUS SULFATE 325 MG TAB PO SCH (12:55)
[2017-12-16 13:04] LABS: Glucose,Whole Blood 167 mg/dL (75-99)
[2017-12-16] MEDS: CYANOCOBALAMIN 500 MCG TAB PO SCH (13:09)
--- NOTE | 2017-12-16 13:41 | P.PN ---
Subjective Progress Note Date: 12/16/17 This is 72-year-old female status post bypass surgery for left main disease. Patient has been having abdominal discomfort. She seemed to have colitis. She is having diarrhea. No complaints of any chest pain. He patient is maintaining sinus rhythm. Also having some problems with urination, urinary retention. From Cardec standpoint we'll continue current medical therapy Objective - Vital Signs Vital signs: Vital Signs Temp 98.0 F 12/16/17 12:00 Pulse 80 12/16/17 12:00 Resp 17 12/16/17 12:00 BP 117/76 12/16/17 12:00 Pulse Ox 99 12/16/17 12:00 Intake & Output 12/15/17 12/16/17 12/16/17 18:59 06:59 18:59 Intake Total 677.0 1744.0 897.5 Output Total 950 4 550 Balance -273.0 1740.0 347.5 Weight 84.5 kg Intake: IV 917.5 867.5 0.9 NACL 100 D5-0.45% NaCl with KCl 880 480 20Meq/l 1,000 ml @ 80 mls /hr IV .[id number] WILLIAM Rx#: [id number] Piperacillin-Tazobactam 3 37.5 37.5 .375 gm In Dextrose/Water 1 50ml.bag @ 12.5 mls/hr IVPB Q8HR WILLIAM Rx#: [id number] potassium phosphate 250 Intake, IV Titration 205.0 706.5 Amount D5-0.45% NaCl with KCl 80 80 20Meq/l 1,000 ml @ 80 mls /hr IV .[id number] WILLIAM Rx#: [id number] Heparin Sod,Pork in 0.45% 114 NaCl 25,000 unit In 0.45 % NaCl 1 500ml.bag @ 11.1 UNITS/KG/HR 20 mls/hr IV .Q24H WILLIAM Rx#:[id number] Lactated Ringers 1,000 ml 100 @ 50 mls/hr IV .Q20H WILLIAM Rx#:[id number] Piperacillin-Tazobactam 3 25.0 12.5 .375 gm In Dextrose/Water 1 50ml.bag @ 12.5 mls/hr IVPB Q8HR WILLIAM Rx#: [id number] Sodium Chloride 0.9% 500 500 ml @ 999 mls/hr IV .Q31M ONE Rx#:[id number] Oral 472 120 30 Output: Urine 950 1 500 Stool 3 50 Other: Voiding Method Bedpan Bedpan Bedpan Diaper Diaper Diaper # Voids 1 1 # Bowel Movements 1 3 1 ABP, PAP, CO, CI - Last Documented Arterial Blood Pressure 122/59 Pulmonary Artery Pressure 4/4 Cardiac Output 4.5 Cardiac Index 2.5 - Exam GENERAL EXAM: Patient is alert and oriented and in moderate distress HEENT: Normocephalic. Normal reaction of pupils, equal size, normal range of extraocular motion. No erythema or exudates in the throat. NECK: No masses, no nuchal rigidity. CHEST: No chest wall deformity. LUNGS: Diminished breath sounds HEART: S1 and S2 normal with no audible mumurs or gallops. Regular rhythm, femorals equal on both sides.. ABDOMEN: Distended SKIN: No rashes CENTRAL NERVOUS SYSTEM: No focal deficits. EXTREMITIES: No cyanosis, clubbing or edema. - Labs CBC & Chem 7: 12/16/17 05:31 12/16/17 05:31 Labs: Abnormal Lab Results - Last 24 Hours (Table) 12/15/17 12/15/17 12/15/17 Range/Units 14:13 14:13 16:02 WBC (3.8-10.6) k/uL RBC (3.80-5.40) m/uL Hgb (11.4-16.0) gm/dL Hct (34.0-46.0) % Neutrophils # (1.3-7.7) k/uL APTT (22.0-30.0) sec Sodium 133 L (137-145) mmol/L Chloride (98-107) mmol/L Carbon Dioxide 17 L (22-30) mmol/L BUN 21 H (7-17) mg/dL Creatinine (0.52-1.04) mg/dL Glucose 116 H (74-99) mg/dL POC Glucose (mg/dL) 130 H (75-99) mg/dL Plasma Lactic Acid Frederick 3.5 H* (0.7-2.0) mmol/L Phosphorus (2.5-4.5) mg/dL AST (14-36) U/L ALT (9-52) U/L Alkaline Phosphatase (38-126) U/L Total Protein (6.3-8.2) g/dL Albumin (3.5-5.0) g/dL Stool Occult Blood (Negative) 12/15/17 12/15/17 12/15/17 Range/Units 17:15 20:45 23:07 WBC (3.8-10.6) k/uL RBC (3.80-5.40) m/uL Hgb (11.4-16.0) gm/dL Hct (34.0-46.0) % Neutrophils # (1.3-7.7) k/uL APTT 41.4 H (22.0-30.0) sec Sodium (137-145) mmol/L Chloride (98-107) mmol/L Carbon Dioxide (22-30) mmol/L BUN (7-17) mg/dL Creatinine (0.52-1.04) mg/dL Glucose (74-99) mg/dL POC Glucose (mg/dL) 136 H 175 H (75-99) mg/dL Plasma Lactic Acid Frederick (0.7-2.0) mmol/L Phosphorus (2.5-4.5) mg/dL AST (14-36) U/L ALT (9-52) U/L Alkaline Phosphatase (38-126) U/L Total Protein (6.3-8.2) g/dL Albumin (3.5-5.0) g/dL Stool Occult Blood (Negative) 12/16/17 12/16/17 12/16/17 Range/Units 04:19 04:45 05:31 WBC 20.2 H (3.8-10.6) k/uL RBC 2.76 L (3.80-5.40) m/uL Hgb 7.6 L (11.4-16.0) gm/dL Hct 23.0 L (34.0-46.0) % Neutrophils # 17.9 H (1.3-7.7) k/uL APTT (22.0-30.0) sec Sodium (137-145) mmol/L Chloride (98-107) mmol/L Carbon Dioxide (22-30) mmol/L BUN (7-17) mg/dL Creatinine (0.52-1.04) mg/dL Glucose (74-99) mg/dL POC Glucose (mg/dL) 139 H (75-99) mg/dL Plasma Lactic Acid Frederick (0.7-2.0) mmol/L Phosphorus (2.5-4.5) mg/dL AST (14-36) U/L ALT (9-52) U/L Alkaline Phosphatase (38-126) U/L Total Protein (6.3-8.2) g/dL Albumin (3.5-5.0) g/dL Stool Occult Blood Positive H (Negative) 12/16/17 12/16/17 12/16/17 Range/Units 05:31 05:31 13:03 WBC (3.8-10.6) k/uL RBC (3.80-5.40) m/uL Hgb (11.4-16.0) gm/dL Hct (34.0-46.0) % Neutrophils # (1.3-7.7) k/uL APTT 47.4 H (22.0-30.0) sec Sodium 134 L (137-145) mmol/L Chloride 110 H (98-107) mmol/L Carbon Dioxide 18 L (22-30) mmol/L BUN (7-17) mg/dL Creatinine 0.50 L (0.52-1.04) mg/dL Glucose 128 H (74-99) mg/dL POC Glucose (mg/dL) 167 H (75-99) mg/dL Plasma Lactic Acid Frederick (0.7-2.0) mmol/L Phosphorus 2.0 L (2.5-4.5) mg/dL AST 47 H (14-36) U/L ALT 57 H (9-52) U/L Alkaline Phosphatase 178 H (38-126) U/L Total Protein 4.6 L (6.3-8.2) g/dL Albumin 2.5 L (3.5-5.0) g/dL Stool Occult Blood (Negative) Microbiology - Last 24 Hours (Table) 12/13/17 22:12 Blood Culture - Preliminary Blood No Growth after 48 hours 12/15/17 14:15 Stool Culture - Preliminary Stool Assessment and Plan (1) Colitis Current Visit: Yes Status: Acute Code(s): K52.9 - NONINFECTIVE GASTROENTERITIS AND COLITIS, UNSPECIFIED SNOMED Code(s): 62591136 (2) Diarrhea in adult patient Current Visit: Yes Status: Acute Code(s): R19.7 - DIARRHEA, UNSPECIFIED SNOMED Code(s): 15975769 (3) Urinary tract infection Current Visit: Yes Status: Acute Code(s): N39.0 - URINARY TRACT INFECTION, SITE NOT SPECIFIED SNOMED Code(s): 57603224 (4) Coronary artery disease involving left main coronary artery Current Visit: Yes Status: Chronic Code(s): I25.10 - ATHSCL HEART DISEASE OF [place] CORONARY ARTERY W/O ANG PCTRS SNOMED Code(s): 408092731 (5) Depression Current Visit: Yes Status: Chronic Code(s): F32.9 - MAJOR DEPRESSIVE DISORDER, SINGLE EPISODE, UNSPECIFIED SNOMED Code(s): 48180839 Plan: Continue current management. We will follow closely
[2017-12-16] MEDS: HEPARIN SOD,PORK IN 0.45% NACL 25,000 UNIT in 0.45% NACL 1 500ML.BAG IV SCH (16:19)
[2017-12-16 17:05] LABS: Glucose,Whole Blood 199 mg/dL (75-99)
--- NOTE | 2017-12-16 20:20 | PN ---
PROGRESS NOTE DATE OF SERVICE: 12/16/2017 This 72-year-old woman who was admitted after CABG, also had change in mental status. Patient also had possibly colitis, C. difficile negative. Patient also had increased WBC. Patient was treated with broad-spectrum IV antibiotics. The patient has been closely monitored in ICU at this time. The patient also had urinary retention, Almaguer catheter is in-situ. Multiple consultants are following the patient closely. PAST MEDICAL HISTORY: Reviewed. REVIEW OF SYSTEMS: CARDIOVASCULAR: No angina. RESPIRATORY: As mentioned earlier. GI: As mentioned earlier. : No dysuria. NERVOUS: No numbness weakness. CURRENT MEDICATIONS: Reviewed, include: 1. Tylenol 1000 mg q.8h p.r.n. 2. DuoNeb q.i.d. and p.r.n. 3. Cordarone 400 mg b.i.d. 4. Vitamin C 500 mg daily. 5. Aspirin 81 mg. 6. Lipitor 40 mg. 7. Dulcolax. 8. Vitamin B12 500 mcg daily. 9. Cymbalta 60 mg. 10.Heparin 5 subcu b.i.d. 11.NovoLog. 12.Toradol 15 every 6 hours p.r.n. 13.Synthroid. 14.Melatonin. 15.Lopressor replacement protocol. 16.Zofran. 17.Protonix. 18.Zosyn IV. PHYSICAL EXAM: Patient is alert, oriented x3. Pulse 74, blood pressure 124/83, respirations 20, temperature is normal, pulse ox 98% on 2L. HEENT: Conjunctivae normal. Oral mucosa moist. NECK: No jugular venous distention. No carotid bruits. No lymph node enlargement. CARDIOVASCULAR: S1, S2 muffled. RESPIRATORY: Breath sounds diminished in the bases. A few scattered rhonchi and crackles. ABDOMEN: Soft, nontender. No mass palpable. NERVOUS SYSTEM: Nonfocal. LAB STUDIES: WBC 20, hemoglobin is 7.6. Otherwise, sodium 134 and AST is 47, ALT is 57, albumin is 2.5. ASSESSMENT: 1. Coronary artery disease, status post coronary artery bypass graft. 2. Atrial fibrillation. 3. Change in mental status, metabolic encephalopathy, possibly medication induced, improved. 4. Diarrhea, possible colitis. 5. Increased WBC count, empiric antibiotics. 6. Coronary artery disease. 7. Diabetes mellitus type 2. 8. Increased LFT. 9. Hypertension. 10.Hyperlipidemia. 11.Degenerative joint disease. 12.Hypothyroidism. 13.History of allergic rhinitis. 14.History of nicotine dependence. 15.Increased WBC. 16.Anxiety, depression. 17.Urinary tract infection with Escherichia coli, present on admission. 18.Urinary retention. RECOMMENDATIONS AND DISCUSSION: Continue current medical management, continue with monitoring and symptomatic treatment. Otherwise, ensure oxygenation, avoid pain medications. Avoid narcotics. Otherwise, repeat labs and empiric antibiotics. The cultures are negative so far. Further recommendations to follow. MMODL / IJN: [id number] /
[2017-12-16] MEDS: MELATONIN 3 MG TABLET PO SCH (21:03)
[2017-12-16 21:04] LABS: Glucose,Whole Blood 172 mg/dL (75-99)
[2017-12-17] MEDS: KETOROLAC 30 MG/ML 1 ML VIAL IVP SCH ×5 (00:15→23:52)
[2017-12-17] MEDS: VANCOMYCIN 1,500 MG in SODIUM CHLORIDE 0.9% 250 ML IVPB SCH ×3 (00:15→23:52)
[2017-12-17] MEDS: PIPERACILLIN-TAZOBACTAM 3.375 GM in DEXTROSE/WATER 1 50ML.BAG IVPB SCH ×4 (00:16→23:52)
[2017-12-17] MEDS: LEVOTHYROXINE 75 MCG TAB PO SCH (06:02)
[2017-12-17] MEDS: D5-0.45% NACL WITH KCL 20MEQ/L 1,000 ML IV SCH ×2 (06:02→09:05)
[2017-12-17] MEDS: METOPROLOL TARTRATE 25 MG TAB PO SCH (06:06)
--- NOTE | 2017-12-17 06:59 | XR ---
EXAMINATION TYPE: XR chest 1V DATE OF EXAM: 12/17/2017 HISTORY: shortness of breath. REFERENCE: Previous study of 12/16/2017. FINDINGS: There has been a midline sternotomy. The heart is enlarged. Lung volumes are prominent. Vas cular congestion and pulmonary edema has improved somewhat. I still suspect small, bilateral effusion s. IMPRESSION: IMPROVING CHANGES OF PULMONARY EDEMA.
[2017-12-17 07:09] LABS: Glucose,Whole Blood 168 mg/dL (75-99)
[2017-12-17 07:48] LABS: ALT 54 U/L (9-52); AST 36 U/L (14-36); Albumin 2.6 g/dL (3.5-5.0); Alkaline Phosphatase 206 U/L (38-126); Anion Gap 9 mmol/L; Blood Urea Nitrogen 13 mg/dL (7-17); Calcium 8.4 mg/dL (8.4-10.2); Carbon Dioxide 14 mmol/L (22-30); Chloride 113 mmol/L (98-107); Glucose 155 mg/dL (74-99); Magnesium 2.1 mg/dL (1.6-2.3); Phosphorus 3.2 mg/dL (2.5-4.5); Potassium 4.5 mmol/L (3.5-5.1); Sodium 136 mmol/L (137-145); Total Bilirubin 0.8 mg/dL (0.2-1.3); Total Protein 4.9 g/dL (6.3-8.2)
[2017-12-17] MEDS: IPRATROPIUM-ALBUTEROL 3 ML NEB INHALATION SCH ×4 (07:58→20:28)
[2017-12-17] MEDS: INSULIN ASPART 100 UNIT/ML 1 ML 10 ML VIAL SQ SCH ×4 (08:11→21:53)
--- NOTE | 2017-12-17 08:48 | ECHOF ---
Referral Reason:Assess LV function postoperatively MEASUREMENTS -------- HEIGHT: 160.0 cm WEIGHT: 89.8 kg BP: RVIDd: 2.5 cm (< 3.3) IVSd: 1.2 cm (0.6 - 1.1) LVIDd: 3.8 cm (3.9 - 5.3) LVPWd: 1.0 cm (0.6 - 1.1) IVSs: 1.6 cm LVIDs: 1.8 cm LVPWs: 1.5 cm LAESV Index (A-L): 29.51 ml/m MV E Rakesh: 1.05 m/s MV DecT: 267 ms MV A Rakesh: 1.00 m/s MV E/A Ratio: 1.05 RAP: 5.00 mmHg RVSP: 27.00 mmHg FINDINGS -------- Sinus rhythm. This was a technically difficult study with suboptimal views. TDS due to CABG and Bandages. Patie nt refused Lumason. The left ventricular size is normal. There is mild concentric left ventricular hypertrophy. Overa ll left ventricular systolic function is low-normal with, an EF between 50 - 55 %. The right ventricle is normal in size and function. LA is midly dilated 29-33ml/m2. RA appears enlarged. There is mild aortic valve sclerosis. There is no evidence of aortic regurgitation. There is no e vidence of aortic stenosis. The mitral valve leaflets are mildly thickened. Mild mitral annular calcification present. Mild m itral regurgitation is present. Trace tricuspid regurgitation present. Right ventricular systolic pressure is normal at < 35 mmHg. There is no evidence of pulmonary hypertension. The pulmonic valve was not well visualized. The aortic root size is normal. Normal inferior vena cava with normal inspiratory collapse consistent with estimated right atrial pre ssure of 5 mmHg. There is no pericardial effusion. CONCLUSIONS -------- 1. Sinus rhythm. 2. This was a technically difficult study with suboptimal views. 3. TDS due to CABG and Bandages. 4. Patient refused Lumason. 5. The left ventricular size is normal. 6. There is mild concentric left ventricular hypertrophy. 7. Overall left ventricular systolic function is low-normal with, an EF between 50 - 55 %. 8. LA is midly dilated 29-33ml/m2. 9. RA appears enlarged. 10. There is mild aortic valve sclerosis. 11. The mitral valve leaflets are mildly thickened. 12. Mild mitral annular calcification present. 13. Mild mitral regurgitation is present. 14. Trace tricuspid regurgitation present. 15. Right ventricular systolic pressure is normal at < 35 mmHg. 16. There is no evidence of pulmonary hypertension. 17. The pulmonic valve was not well visualized. 18. The aortic root size is normal. 19. There is no pericardial effusion. ELECTRICAL CALIBRATOR: Vinod Cobian RDCS
[2017-12-17 09:04] LABS: HCT 26.6 % (34.0-46.0); HGB 8.2 gm/dL (11.4-16.0); Hypochromasia Moderate; MCH 26.7 pg (25.0-35.0); MCHC 30.7 g/dL (31.0-37.0); Mean Platelet Volume 7.6; Platelet Count 361 k/uL (150-450); RBC 3.05 m/uL (3.80-5.40); RDW 15.5 % (11.5-15.5); WBC 17.2 k/uL (3.8-10.6)
[2017-12-17] MEDS: DULoxetine HCL 60 MG CAPSULE.DR PO SCH (09:06)
[2017-12-17] MEDS: PANTOPRAZOLE 40 MG TABLET PO SCH (09:06)
[2017-12-17] MEDS: ATORVASTATIN 40 MG TAB PO SCH (09:06)
[2017-12-17] MEDS: ASPIRIN 81 MG PO SCH (09:06)
[2017-12-17] MEDS: AMIODARONE 200 MG TAB PO SCH ×2 (09:07→20:26)
--- NOTE | 2017-12-17 09:17 | P.PN ---
Subjective Progress Note Date: 12/17/17 Principal diagnosis: Status post bypass grafting Progress note dated 12/13/2017 72-year-old female who is postop day #2, status post three-vessel bypass grafting. The patient is doing relatively well. The patient was able to be extubated in about 4 hours from mechanical ventilation. Postoperative ventilator management has been relatively stable. The patient is currently receiving O2 2 L. She is on IV of saline at 20 mL an hour. She's doing about 1250 on her incentive spirometer. Other than for some pain at the surgical site , she seems to not have major issues. She denies any chest pain or chest discomfort. No palpitations or fluttering. She denies any shortness breath difficulty breathing coughing wheezing or phlegm production. Denies coughing up any blood. No nausea vomiting or diarrhea noted. Progress note dated 12/17/2017 72-year-old female who is postop day #6, status post three-vessel bypass grafting. The patient was doing relatively well up until about a day ago. She was transferred back to the intensive care unit because of liquid diarrhea weakness and shortness of breath. C. difficile screening was negative. Stool is occult positive. Her computed tomography scan of the abdomen revealed mild ischemic colitis. This may relate to her atrial fibrillation. Currently, the patient is doing about the same. She's not receiving any supplemental oxygen. She remains on IV heparin and also on an IV of dextrose and half-normal saline with 20 mEq potassium at 80 mL an hour. She also has another saline IV just at KVO. Narcotics have been discontinued because she's been getting very confused. She denies any shortness of breath or chest pain. Urine is positive for Escherichia coli. Chest x-ray shows changes of improving volume status. Laboratory data today includes a white count of 17.2 hemoglobin 8.2 hematocrit 26.6 and a normal platelet count. Sodium 136, potassium 4.5, chlorides 113, CO2 14 and anion gap is 9. BUN and creatinine were 13 and 0.71. Objective - Vital Signs Vital signs: Vital Signs Temp 98.4 F 12/17/17 04:00 Pulse 85 12/17/17 08:09 Resp 17 12/17/17 07:00 BP 165/87 12/17/17 07:00 Pulse Ox 99 12/17/17 07:00 Intake & Output 12/16/17 12/17/17 12/17/17 18:59 06:59 18:59 Intake Total 2183.5 1692.5 160 Output Total 785 775 125 Balance 1398.5 917.5 35 Weight 87 kg Intake: IV 1767.5 1512.5 100 0.9 NACL 220 240 20 D5-0.45% NaCl with KCl 960 960 80 20Meq/l 1,000 ml @ 80 mls /hr IV .[id number] [facility] Rx#: [id number] Piperacillin-Tazobactam 3 87.5 62.5 .375 gm In Dextrose/Water 1 50ml.bag @ 12.5 mls/hr IVPB Q8HR [facility] Rx#: [id number] Vancomycin 1,500 mg In 250 Sodium Chloride 0.9% 250 ml @ 125 mls/hr IVPB Q12H [facility] Rx#:[id number] potassium phosphate 500 Intake, IV Titration 386 Amount Heparin Sod,Pork in 0.45% 386 NaCl 25,000 unit In 0.45 % NaCl 1 500ml.bag @ 11.1 UNITS/KG/HR 20 mls/hr IV .Q24H [facility] Rx#:[id number] Oral 30 180 60 Output: Urine 735 775 125 Stool 50 Other: Voiding Method Indwelling Catheter Indwelling Catheter # Bowel Movements 4 0 ABP, PAP, CO, CI - Last Documented Arterial Blood Pressure 122/59 Pulmonary Artery Pressure 4/4 Cardiac Output 4.5 Cardiac Index 2.5 - Exam No acute distress, oriented 3. No need for supplemental oxygen. The patient' s major complaint is back and leg pain HEENT examination is grossly unremarkable. Mucous membranes are moist. No oral lesions. Neck supple. Full range of motion. No adenopathy thyromegaly or neck vein distention. Cardiovascular examination reveals regular rhythm rate. S1-S2 normal. No S3 or S4. No discernible murmur noted. Heart sounds are distant. Lungs reveal mostly clear breath sounds. A few scattered rhonchi are noted. Breath sounds are equal bilaterally and there is reasonable air exchange. Abdomen soft bowel sounds are heard. No masses or tenderness. Extremities are intact. No cyanosis clubbing or edema. Skin is without rash or lesion. Neurologic examination is brief but nonfocal. - Labs CBC & Chem 7: 12/17/17 07:15 12/17/17 07:15 Labs: Abnormal Lab Results - Last 24 Hours (Table) 12/16/17 12/16/17 12/16/17 Range/Units 13:03 17:03 21:02 WBC (3.8-10.6) k/uL RBC (3.80-5.40) m/uL Hgb (11.4-16.0) gm/dL Hct (34.0-46.0) % MCHC (31.0-37.0) g/dL Sodium (137-145) mmol/L Chloride (98-107) mmol/L Carbon Dioxide (22-30) mmol/L Glucose (74-99) mg/dL POC Glucose (mg/dL) 167 H 199 H 172 H (75-99) mg/dL ALT (9-52) U/L Alkaline Phosphatase (38-126) U/L Total Protein (6.3-8.2) g/dL Albumin (3.5-5.0) g/dL 12/17/17 12/17/17 12/17/17 Range/Units 07:06 07:15 07:15 WBC 17.2 H (3.8-10.6) k/uL RBC 3.05 L (3.80-5.40) m/uL Hgb 8.2 L (11.4-16.0) gm/dL Hct 26.6 L (34.0-46.0) % MCHC 30.7 L (31.0-37.0) g/dL Sodium 136 L (137-145) mmol/L Chloride 113 H (98-107) mmol/L Carbon Dioxide 14 L (22-30) mmol/L Glucose 155 H (74-99) mg/dL POC Glucose (mg/dL) 168 H (75-99) mg/dL ALT 54 H (9-52) U/L Alkaline Phosphatase 206 H (38-126) U/L Total Protein 4.9 L (6.3-8.2) g/dL Albumin 2.6 L (3.5-5.0) g/dL Microbiology - Last 24 Hours (Table) 12/13/17 22:12 Blood Culture - Preliminary Blood No Growth after 72 hours Assessment and Plan Assessment: Assessment Postop day #6, status post multivessel bypass grafting for CAD Status post routine ventilator management Ischemic colitis E. coli urinary tract infection Benign essential hypertension History of hyperlipidemia Type 2 diabetes mellitus Peripheral vascular occlusive disease Previous history of nicotine dependence, currently not smoking Hypothyroidism Paroxysmal atrial fibrillation Chronic low back pain History of depression Plan: Plan dated 12/13/2017 The patient seems to be progressing nicely. Chest x-ray will be evaluated as well the labs. Medications are also be evaluated. We will recommend continued use of the incentive spirometer. We also recommend deep breathing coughing and clearing his secretions. In addition, the patient should be maintained on the breathing treatments. White count is 25.8 hemoglobin 9.6 hematocrit 28.8 and platelet count is normal. Sodium is 133 potassium chloride CO2 anion gap BUN and creatinine are all normal. Chest x-ray reveals cardiomegaly, postoperative changes and some basilar atelectasis worse on the left than on the right side. I will continue to follow. Prognosis is guarded. Critical care time 32 minutes Plan dated 12/17/2017. The patient's overall situation remains very guarded. She still complaining of some abdominal discomfort. The patient also complains of significant back and leg pain. She remains on IV heparin as well as a couple different IVs. Because of confusion, narcotics were discontinued. He is getting Tylenol and some additional pain medication. Labs are reviewed. She does have a non-anion gap hyperchloremic metabolic acidosis. This is being caused by the saline IV and a half normal saline IV. Medications are reviewed. Additional recommendations and suggestions are forthcoming. We recommend continued use of incentive spirometer updrafts 4 times a day and when necessary. We also recommend deep breathing coughing and clearing of secretions. Critical care time 34 minutes Time with Patient: Greater than 30
[2017-12-17 09:22] LABS: Band Neutrophils % 10 %; Eosinophils # (M) 0.34 k/uL (0-0.7); Lymphocytes # (M) 1.89 k/uL (1.0-4.8); Metamyelocytes # (M) 0.34 k/uL (0); Metamyelocytes % 2 %; Monocytes # (M) 1.38 k/uL (0-1.0); Myelocytes # (M) 0.86 k/uL (0); Myelocytes % 5 %; Neutrophils % (M) 65 %; Nucleated Red Blood Cells 0 /100 WBC (0-0); Total Cells Counted 200
[2017-12-17 09:23] LABS: Poikilocytosis (M) Present; Toxic Granulation Present
[2017-12-17] MEDS ORDERED: D5W WITH KCL 20 MEQ/L 1,000 ML IV ONE (09:30)
[2017-12-17] MEDS ORDERED: HEPARIN SODIUM,PORCINE 5,000 UNIT/ML 1 ML VIAL IV ONE (09:49)
--- NOTE | 2017-12-17 10:39 | P.PN ---
Subjective Progress Note Date: 12/17/17 Principal diagnosis: Coronary artery disease with critical left main disease. Preserved left ventricular function. Previous medical history of hypertension, hyperlipidemia , diabetes mellitus with preoperative hemoglobin A1c 8.1%, hypothyroid, chest granulomatous disease, peripheral vascular disease status post right fem-pop bypass, previous tobacco dependence with preoperative FEV1 109% of predicted in November 2016, recent fall in June 2017 with torn right rotator cuff, questionable DVT with previous Coumadin use greater than 2 years ago, syncopal episodes, history of paroxysmal atrial fibrillation, chronic low back pain, obesity, depression and preoperative E. coli urinary tract infection. POD #6 urgent quadruple coronary artery bypass grafting using the left internal mammary artery sequentially to the diagonal coronary artery and to the left anterior descending coronary artery, a reverse greater saphenous vein graft from the aorta to the first obtuse marginal coronary artery, a reverse greater saphenous vein graft from the aorta to the third obtuse marginal coronary artery. Bilateral pulmonary vein isolation using the AtriCure radiofrequency clamp. Exclusion of the left atrial appendage using a 35 mm AtriClip. Intraoperative transesophageal echocardiogram and epi-aortic scanning. Postoperative elevation in transaminases, an unexpected outcome, resolving. Leukocytosis, present preoperatively. Postoperative diarrhea, an unexpected outcome. Postoperative normochromic, normocytic anemia, an expected outcome of surgery secondary to cardiopulmonary bypass and hemodilution. Currently the patient is laying in bed in no acute distress. She is more alert today and oriented 3. Her bedside nurse reports she has not had any further episodes of diarrhea in the last 24 hours. She is complaining of pain 10 out of 10 on the pain scale, generalized pain all over her body. She denies any complaints of shortness of breath she is tolerating a full liquid diet. Heparin drip remains confusing per protocol. Lactic acid level this morning is 1.5. Almaguer catheter remains in place for urinary retention and is draining clear yellow urine with 430 mL output in the last 8 hours. WBC count is trending down and today it is 17.2. She remains afebrile. Objective - Vital Signs Vital signs: Vital Signs Temp 98.4 F 12/17/17 04:00 Pulse 85 12/17/17 08:09 Resp 17 12/17/17 07:00 BP 165/87 12/17/17 07:00 Pulse Ox 99 12/17/17 07:00 Intake & Output 12/16/17 12/17/17 12/17/17 18:59 06:59 18:59 Intake Total 2183.5 1692.5 160 Output Total 785 775 125 Balance 1398.5 917.5 35 Weight 87 kg Intake: IV 1767.5 1512.5 100 0.9 NACL 220 240 20 D5-0.45% NaCl with KCl 960 960 80 20Meq/l 1,000 ml @ 80 mls /hr IV .[id number] [facility] Rx#: [id number] Piperacillin-Tazobactam 3 87.5 62.5 .375 gm In Dextrose/Water 1 50ml.bag @ 12.5 mls/hr IVPB Q8HR [facility] Rx#: [id number] Vancomycin 1,500 mg In 250 Sodium Chloride 0.9% 250 ml @ 125 mls/hr IVPB Q12H [facility] Rx#:[id number] potassium phosphate 500 Intake, IV Titration 386 Amount Heparin Sod,Pork in 0.45% 386 NaCl 25,000 unit In 0.45 % NaCl 1 500ml.bag @ 11.1 UNITS/KG/HR 20 mls/hr IV .Q24H [facility] Rx#:[id number] Oral 30 180 60 Output: Urine 735 775 125 Stool 50 Other: Voiding Method Indwelling Catheter Indwelling Catheter # Bowel Movements 4 0 ABP, PAP, CO, CI - Last Documented Arterial Blood Pressure 122/59 Pulmonary Artery Pressure 4/4 Cardiac Output 4.5 Cardiac Index 2.5 - Constitutional General appearance: Present: cooperative, no acute distress, obese - Respiratory Details: Lung sounds with essentially clear throughout, diminished to her bilateral bases. . Respirations are symmetrical and unlabored. Oxygen saturations are 99 % on room air. Achieving 1000 ml on her incentive spirometry with encouragement. Mammary support bra in place. - Cardiovascular Details: Regular rhythm and rate. S1 and S2 present, negative for S3, gallop or murmur. Bedside telemetry showing normal sinus rhythm heart rate 80. Sternum stable. Heart hugger and mammary support in place. Demonstrating appropriate use on heart hugger with encouragement. Knee-high KURT hose and sequential compression devices in place to her bilateral lower extremities. No edema present. - Gastrointestinal Gastrointestinal Comment(s): Abdomen is soft, nondistended, nontender. No organomegaly. Hypoactive bowel sounds to all 4 abdominal quadrants. Tolerating full liquid diet. No further liquid stool since yesterday around 5 PM. - Genitourinary Genitourinary Comment(s): Almaguer catheter for accurate I&O. Draining clear yellow urine. 490 mL output in the last 8 hours. - Integumentary Integumentary Comment(s): Skin is warm and dry. No clubbing or cyanosis present. Midline sternal incision clean dry and approximated. No drainage or redness present. Left leg EVH site clean dry and approximated. No drainage or redness present. Left thigh ecchymosis soft palpate, nontender. - Neurologic Neurologic: Present: CNII-XII intact - Musculoskeletal Musculoskeletal: Present: gait normal, generalized weakness, strength equal bilaterally - Psychiatric Psychiatric: Present: A&O x's 3, appropriate affect, intact judgment & insight - Allied health notes Allied health notes reviewed: nursing - Labs CBC & Chem 7: 12/17/17 07:15 12/17/17 07:15 Labs: Abnormal Lab Results - Last 24 Hours (Table) 12/16/17 12/16/17 12/16/17 Range/Units 13:03 17:03 21:02 Sodium (137-145) mmol/L Chloride (98-107) mmol/L Carbon Dioxide (22-30) mmol/L Glucose (74-99) mg/dL POC Glucose (mg/dL) 167 H 199 H 172 H (75-99) mg/dL ALT (9-52) U/L Alkaline Phosphatase (38-126) U/L Total Protein (6.3-8.2) g/dL Albumin (3.5-5.0) g/dL 12/17/17 12/17/17 Range/Units 07:06 07:15 Sodium 136 L (137-145) mmol/L Chloride 113 H (98-107) mmol/L Carbon Dioxide 14 L (22-30) mmol/L Glucose 155 H (74-99) mg/dL POC Glucose (mg/dL) 168 H (75-99) mg/dL ALT 54 H (9-52) U/L Alkaline Phosphatase 206 H (38-126) U/L Total Protein 4.9 L (6.3-8.2) g/dL Albumin 2.6 L (3.5-5.0) g/dL Microbiology - Last 24 Hours (Table) 12/13/17 22:12 Blood Culture - Preliminary Blood No Growth after 72 hours - Imaging and Cardiology Chest x-ray: report reviewed, image reviewed 2-D echocardiogram results reviewed, demonstrates an overall left ventricular systolic function to be low normal with an ejection fraction between 50 and 55% . No pericardial effusion demonstrated. Assessment and Plan (1) Diarrhea in adult patient Current Visit: Yes Status: Acute Code(s): R19.7 - DIARRHEA, UNSPECIFIED SNOMED Code(s): 45088680 (2) Chronic low back pain Current Visit: Yes Status: Chronic Code(s): M54.5 - LOW BACK PAIN; G89.29 - OTHER CHRONIC PAIN SNOMED Code(s): 795816469 (3) Coronary artery disease involving left main coronary artery Current Visit: Yes Status: Chronic Code(s): I25.10 - ATHSCL HEART DISEASE OF [place] CORONARY ARTERY W/O ANG PCTRS SNOMED Code(s): 871553187 (4) Diabetes Current Visit: Yes Status: Chronic Code(s): E11.9 - TYPE 2 DIABETES MELLITUS WITHOUT COMPLICATIONS SNOMED Code(s): 08898105 (5) Family history of heart disease Current Visit: Yes Status: Chronic Code(s): Z82.49 - FAMILY HX OF ISCHEM HEART DIS AND OTH DIS OF THE CIRC SYS SNOMED Code(s): 175147822 (6) Hyperlipidemia Current Visit: Yes Status: Chronic Code(s): E78.5 - HYPERLIPIDEMIA, UNSPECIFIED SNOMED Code(s): 82319010 (7) Hypertension Current Visit: Yes Status: Chronic Code(s): I10 - ESSENTIAL (PRIMARY) HYPERTENSION SNOMED Code(s): 85118683 (8) Hypothyroid Current Visit: Yes Status: Chronic Code(s): E03.9 - HYPOTHYROIDISM, UNSPECIFIED SNOMED Code(s): 82540535 (9) Peripheral vascular disease Current Visit: Yes Status: Chronic Code(s): I73.9 - PERIPHERAL VASCULAR DISEASE, UNSPECIFIED SNOMED Code(s): 961317685 (10) History of DVT (deep vein thrombosis) Current Visit: No Status: Resolved Code(s): Z86.718 - PERSONAL HISTORY OF OTHER VENOUS THROMBOSIS AND EMBOLISM SNOMED Code(s): 928142552 (11) History of atrial fibrillation Current Visit: No Status: Resolved Code(s): Z86.79 - PERSONAL HISTORY OF OTHER DISEASES OF THE CIRCULATORY SYSTEM SNOMED Code(s): 586182375 (12) Tobacco dependence in remission Current Visit: No Status: Resolved Code(s): F17.201 - NICOTINE DEPENDENCE, UNSPECIFIED, IN REMISSION SNOMED Code(s): 227923190 Plan: 1. Continue low dose aspirin, statin, and beta sheree. Will increase her metoprolol titrate to 50 mg by mouth twice a day. 2. Encourage incentive spirometry use 10 times every hour. 3. Increase activity, ambulate as tolerated. PT/OT/cardiac rehab following. 4. Continue amiodarone for A. fib prophylaxis. Currently on amiodarone 400 mg by mouth twice a day started on 12/12/2017. 5. Continue Zosyn, vancomycin. Dr. Mccartney from infectious disease following. C. difficile culture and stool cultures are negative. 6. Monitor daily labs, chest x-rays. 7. GI/DVT prophylaxis. 8. Pain control with current medication regimen. Minimize narcotic usage, utilize by mouth Tylenol and IV Toradol. 9. Bronchodilators management per pulmonology. 10. Insulin/diabetic management per Dr. Yousif. 11. Continue neuro checks. 12. General surgery recommendations per Dr. Crum. Diet recommendations per Dr Crum. 13. Patient will need rehab at discharge. Dr. Medrano following. 14. Urology consult noted and appreciated. Keep Almaguer catheter in place for now due to urinary retention. 15. Change IV fluids to D5 W with 20 KCl at 75 mL per hour per Dr. Platt's recommendations. 16. More recommendations to follow based on patient's clinical course. Time with Patient: Greater than 30
--- NOTE | 2017-12-17 11:10 | P.PN ---
Subjective Progress Note Date: 12/17/17 Principal diagnosis: Ischemic colitis Patient remains in the ICU. Seems somewhat agitated today. Denies pain currently although states she was having some mild abdominal discomfort yesterday. She is complaining of severe back pain. Her narcotics have been held and she was taking OxyContin on a daily basis for her back pain previously. OxyContin and other narcotics were held because of the patient's confusion. Lactic acid is normal. White blood cell count improved today. She is afebrile. No stools this morning. Objective - Vital Signs Vital signs: Vital Signs Temp 98.4 F 12/17/17 04:00 Pulse 85 12/17/17 08:09 Resp 17 12/17/17 07:00 BP 165/87 12/17/17 07:00 Pulse Ox 99 12/17/17 07:00 Intake & Output 12/16/17 12/17/17 12/17/17 18:59 06:59 18:59 Intake Total 2183.5 1692.5 573.393 Output Total 785 775 125 Balance 1398.5 917.5 448.393 Weight 87 kg Intake: IV 1767.5 1512.5 100 0.9 NACL 220 240 20 D5-0.45% NaCl with KCl 960 960 80 20Meq/l 1,000 ml @ 80 mls /hr IV .[id number] [facility] Rx#: [id number] Piperacillin-Tazobactam 3 87.5 62.5 .375 gm In Dextrose/Water 1 50ml.bag @ 12.5 mls/hr IVPB Q8HR [facility] Rx#: [id number] Vancomycin 1,500 mg In 250 Sodium Chloride 0.9% 250 ml @ 125 mls/hr IVPB Q12H [facility] Rx#:[id number] potassium phosphate 500 Intake, IV Titration 386 413.393 Amount Heparin Sod,Pork in 0.45% 386 413.393 NaCl 25,000 unit In 0.45 % NaCl 1 500ml.bag @ 11.1 UNITS/KG/HR 20 mls/hr IV .Q24H [facility] Rx#:[id number] Oral 30 180 60 Output: Urine 735 775 125 Stool 50 Other: Voiding Method Indwelling Catheter Indwelling Catheter # Bowel Movements 4 0 ABP, PAP, CO, CI - Last Documented Arterial Blood Pressure 122/59 Pulmonary Artery Pressure 4/4 Cardiac Output 4.5 Cardiac Index 2.5 - Exam Abdomen: Soft, mild distention, nontender - Labs CBC & Chem 7: 12/17/17 07:15 12/17/17 07:15 Labs: Abnormal Lab Results - Last 24 Hours (Table) 12/16/17 12/16/17 12/16/17 Range/Units 13:03 17:03 21:02 WBC (3.8-10.6) k/uL RBC (3.80-5.40) m/uL Hgb (11.4-16.0) gm/dL Hct (34.0-46.0) % MCHC (31.0-37.0) g/dL Neutrophils # (Manual) (1.3-7.7) k/uL Monocytes # (Manual) (0-1.0) k/uL Metamyelocytes # (Man) (0) k/uL Myelocytes # (Manual) (0) k/uL Sodium (137-145) mmol/L Chloride (98-107) mmol/L Carbon Dioxide (22-30) mmol/L Glucose (74-99) mg/dL POC Glucose (mg/dL) 167 H 199 H 172 H (75-99) mg/dL ALT (9-52) U/L Alkaline Phosphatase (38-126) U/L Total Protein (6.3-8.2) g/dL Albumin (3.5-5.0) g/dL 12/17/17 12/17/17 12/17/17 Range/Units 07:06 07:15 07:15 WBC 17.2 H (3.8-10.6) k/uL RBC 3.05 L (3.80-5.40) m/uL Hgb 8.2 L (11.4-16.0) gm/dL Hct 26.6 L (34.0-46.0) % MCHC 30.7 L (31.0-37.0) g/dL Neutrophils # (Manual) 12.90 H (1.3-7.7) k/uL Monocytes # (Manual) 1.38 H (0-1.0) k/uL Metamyelocytes # (Man) 0.34 H (0) k/uL Myelocytes # (Manual) 0.86 H (0) k/uL Sodium 136 L (137-145) mmol/L Chloride 113 H (98-107) mmol/L Carbon Dioxide 14 L (22-30) mmol/L Glucose 155 H (74-99) mg/dL POC Glucose (mg/dL) 168 H (75-99) mg/dL ALT 54 H (9-52) U/L Alkaline Phosphatase 206 H (38-126) U/L Total Protein 4.9 L (6.3-8.2) g/dL Albumin 2.6 L (3.5-5.0) g/dL Microbiology - Last 24 Hours (Table) 12/13/17 22:12 Blood Culture - Preliminary Blood No Growth after 72 hours Assessment and Plan (1) Ischemic colitis Narrative/Plan: Continue antibiotic for UTI with coverage for ischemic colitis. Continue diet as ordered. We'll follow with you. Current Visit: Yes Status: Acute Code(s): K55.9 - VASCULAR DISORDER OF INTESTINE, UNSPECIFIED SNOMED Code(s): 28450784
[2017-12-17 11:55] LABS: Glucose,Whole Blood 167 mg/dL (75-99)
--- NOTE | 2017-12-17 12:34 | P.PN ---
Subjective Progress Note Date: 12/17/17 This is 72-year-old female status post bypass surgery for left main disease. Patient has been having abdominal discomfort. She seemed to have colitis. She is having diarrhea. No complaints of any chest pain. He patient is maintaining sinus rhythm. Also having some problems with urination, urinary retention. From Cardec standpoint we'll continue current medical therapy 12/17/2017: The patient continues to be agitated. He still complains of back pain and leg pain. Computed tomography scan of the abdomen showed evidence of colitis. She is not having any diarrhea. Patient is being treated for UTI and colitis with antibiotics. Her echocardiogram showed preserved LV function without any significant valvular abnormalities. We'll continue with current management. Prognosis is guarded Objective - Vital Signs Vital signs: Vital Signs Temp 98.4 F 12/17/17 08:00 Pulse 84 12/17/17 11:00 Resp 30 H 12/17/17 11:00 BP 193/102 12/17/17 11:00 Pulse Ox 99 12/17/17 11:00 Intake & Output 12/16/17 12/17/17 12/17/17 18:59 06:59 18:59 Intake Total 2183.5 1692.5 902.393 Output Total 785 775 475 Balance 1398.5 917.5 427.393 Weight 87 kg Intake: IV 1767.5 1512.5 209 0.9 NACL 220 240 20 D5-0.45% NaCl with KCl 960 960 80 20Meq/l 1,000 ml @ 80 mls /hr IV .[id number] [facility] Rx#: [id number] Piperacillin-Tazobactam 3 87.5 62.5 .375 gm In Dextrose/Water 1 50ml.bag @ 12.5 mls/hr IVPB Q8HR [facility] Rx#: [id number] Vancomycin 1,500 mg In 250 Sodium Chloride 0.9% 250 ml @ 125 mls/hr IVPB Q12H [facility] Rx#:[id number] potassium phosphate 500 109 Intake, IV Titration 386 413.393 Amount Heparin Sod,Pork in 0.45% 386 413.393 NaCl 25,000 unit In 0.45 % NaCl 1 500ml.bag @ 11.1 UNITS/KG/HR 20 mls/hr IV .Q24H [facility] Rx#:[id number] Oral 30 180 280 Output: Urine 735 775 475 Stool 50 Other: Voiding Method Indwelling Catheter Indwelling Catheter # Bowel Movements 4 0 ABP, PAP, CO, CI - Last Documented Arterial Blood Pressure 122/59 Pulmonary Artery Pressure 4/4 Cardiac Output 4.5 Cardiac Index 2.5 - Exam GENERAL EXAM: Patient is alert and oriented and in moderate distress HEENT: Normocephalic. Normal reaction of pupils, equal size, normal range of extraocular motion. No erythema or exudates in the throat. NECK: No masses, no nuchal rigidity. CHEST: No chest wall deformity. LUNGS: Diminished breath sounds HEART: S1 and S2 normal with no audible mumurs or gallops. Regular rhythm, femorals equal on both sides.. ABDOMEN: Distended SKIN: No rashes CENTRAL NERVOUS SYSTEM: No focal deficits. EXTREMITIES: No cyanosis, clubbing or edema. - Labs CBC & Chem 7: 12/17/17 07:15 12/17/17 07:15 Labs: Abnormal Lab Results - Last 24 Hours (Table) 12/16/17 12/16/17 12/16/17 Range/Units 13:03 17:03 21:02 WBC (3.8-10.6) k/uL RBC (3.80-5.40) m/uL Hgb (11.4-16.0) gm/dL Hct (34.0-46.0) % MCHC (31.0-37.0) g/dL Neutrophils # (Manual) (1.3-7.7) k/uL Monocytes # (Manual) (0-1.0) k/uL Metamyelocytes # (Man) (0) k/uL Myelocytes # (Manual) (0) k/uL Sodium (137-145) mmol/L Chloride (98-107) mmol/L Carbon Dioxide (22-30) mmol/L Glucose (74-99) mg/dL POC Glucose (mg/dL) 167 H 199 H 172 H (75-99) mg/dL ALT (9-52) U/L Alkaline Phosphatase (38-126) U/L Total Protein (6.3-8.2) g/dL Albumin (3.5-5.0) g/dL 12/17/17 12/17/17 12/17/17 Range/Units 07:06 07:15 07:15 WBC 17.2 H (3.8-10.6) k/uL RBC 3.05 L (3.80-5.40) m/uL Hgb 8.2 L (11.4-16.0) gm/dL Hct 26.6 L (34.0-46.0) % MCHC 30.7 L (31.0-37.0) g/dL Neutrophils # (Manual) 12.90 H (1.3-7.7) k/uL Monocytes # (Manual) 1.38 H (0-1.0) k/uL Metamyelocytes # (Man) 0.34 H (0) k/uL Myelocytes # (Manual) 0.86 H (0) k/uL Sodium 136 L (137-145) mmol/L Chloride 113 H (98-107) mmol/L Carbon Dioxide 14 L (22-30) mmol/L Glucose 155 H (74-99) mg/dL POC Glucose (mg/dL) 168 H (75-99) mg/dL ALT 54 H (9-52) U/L Alkaline Phosphatase 206 H (38-126) U/L Total Protein 4.9 L (6.3-8.2) g/dL Albumin 2.6 L (3.5-5.0) g/dL 12/17/17 Range/Units 11:52 WBC (3.8-10.6) k/uL RBC (3.80-5.40) m/uL Hgb (11.4-16.0) gm/dL Hct (34.0-46.0) % MCHC (31.0-37.0) g/dL Neutrophils # (Manual) (1.3-7.7) k/uL Monocytes # (Manual) (0-1.0) k/uL Metamyelocytes # (Man) (0) k/uL Myelocytes # (Manual) (0) k/uL Sodium (137-145) mmol/L Chloride (98-107) mmol/L Carbon Dioxide (22-30) mmol/L Glucose (74-99) mg/dL POC Glucose (mg/dL) 167 H (75-99) mg/dL ALT (9-52) U/L Alkaline Phosphatase (38-126) U/L Total Protein (6.3-8.2) g/dL Albumin (3.5-5.0) g/dL Microbiology - Last 24 Hours (Table) 12/13/17 22:12 Blood Culture - Preliminary Blood No Growth after 72 hours Assessment and Plan (1) Colitis Current Visit: Yes Status: Acute Code(s): K52.9 - NONINFECTIVE GASTROENTERITIS AND COLITIS, UNSPECIFIED SNOMED Code(s): 68770065 (2) Diarrhea in adult patient Current Visit: Yes Status: Acute Code(s): R19.7 - DIARRHEA, UNSPECIFIED SNOMED Code(s): 87899238 (3) Urinary tract infection Current Visit: Yes Status: Acute Code(s): N39.0 - URINARY TRACT INFECTION, SITE NOT SPECIFIED SNOMED Code(s): 04393073 (4) Coronary artery disease involving left main coronary artery Current Visit: Yes Status: Chronic Code(s): I25.10 - ATHSCL HEART DISEASE OF [place] CORONARY ARTERY W/O ANG PCTRS SNOMED Code(s): 651788033 (5) Depression Current Visit: Yes Status: Chronic Code(s): F32.9 - MAJOR DEPRESSIVE DISORDER, SINGLE EPISODE, UNSPECIFIED SNOMED Code(s): 03319109 Plan: Patient is essentially is being treated for colitis back pain and urinary tract infections. Cardiac-rudolph patient seems to be stable. Echo showed preserved LV function.
[2017-12-17] MEDS: ACETAMINOPHEN TAB 500 MG TAB PO PRN (13:04)
[2017-12-17] MEDS: CYANOCOBALAMIN 500 MCG TAB PO SCH (13:42)
[2017-12-17] MEDS: FERROUS SULFATE 325 MG TAB PO SCH (13:42)
[2017-12-17] MEDS: ASCORBIC ACID 500 MG TAB PO SCH (13:43)
[2017-12-17] MEDS: HEPARIN SOD,PORK IN 0.45% NACL 25,000 UNIT in 0.45% NACL 1 500ML.BAG IV SCH (14:05)
[2017-12-17] MEDS ORDERED: METHYL SALICYLATE/MENTHOL CREAM 5 OZ TOPICAL PRN (16:00)
[2017-12-17 17:58] LABS: Glucose,Whole Blood 181 mg/dL (75-99)
--- NOTE | 2017-12-17 18:00 | PN ---
PROGRESS NOTE DATE OF SERVICE: 12/17/2017 This 72-year-old woman was admitted after CAD/CABG is being closely monitored. The patient is off narcotics. The sensorium is improving significantly. The patient is complaining of some back pain and some abdominal discomfort also. The patient is being followed by multiple consultants. PHYSICAL EXAM: Alert and oriented x3. Pulse 81. Blood pressure 150/77. Respiratory rate 13, temperature 97.2, pulse 100% on room air. HEENT: Conjunctivae normal. Oral mucosa moist. Neck is no jugular venous distention. No carotid bruit. No lymph node enlargement. Cardiovascular systems: S1, S2 muffled. Respirations: Breath sounds diminished at the bases. A few scattered rhonchi and crackles. ABDOMEN: Soft, nontender. Mild diffuse discomfort. No guarding. No rigidity. No mass palpable. Legs: No edema. No swelling. Central nervous system: No focal deficits. LAB STUDIES: WBC 17.9, hemoglobin is 8.2, and sodium is 136. ASSESSMENT: 1. Coronary artery disease status post coronary artery bypass grafting. 2. Atrial fibrillation. 3. Change in mental status, metabolic encephalopathy, possibly medication induced, improved. 4. Diarrhea possibly colitis. 5. Abdominal pain. 6. Increased WBC on empiric antibiotics. 7. Coronary artery disease. 8. Diabetes mellitus type 2. 9. Increased LFTs. 10.Hypertension. 11.Hyperlipidemia. 12.History of degenerative joint disease. 13.History of hypothyroidism. 14.Allergic rhinitis. 15.History of nicotine dependence. 16.Increased WBC. 17.Anxiety, depression. 18.Urinary tract infection with E coli present on admission. 19.Urinary retention. RECOMMENDATIONS AND DISCUSSION: Recommend to continue current medications, continue with monitoring, symptomatic treatment. Otherwise, at this time, we will avoid narcotics. Continue the rest of the medications. See orders for details. Further recommendations to follow. MMODL / IJN: [id number] /
[2017-12-17] MEDS: HEPARIN SODIUM,PORCINE 5,000 UNIT/ML 1 ML VIAL IV PRN (18:42)
[2017-12-17] MEDS: ONDANSETRON 4 MG/2 ML VIAL IVP PRN (20:25)
[2017-12-17] MEDS: MELATONIN 3 MG TABLET PO SCH (20:26)
[2017-12-17 21:45] LABS: Glucose,Whole Blood 156 mg/dL (75-99)
[2017-12-17] MEDS: METOPROLOL TARTRATE 50 MG TAB PO SCH (21:50)
[2017-12-18] MEDS: ACETAMINOPHEN TAB 500 MG TAB PO PRN (03:29)
[2017-12-18] MEDS: ONDANSETRON 4 MG/2 ML VIAL IVP PRN (03:30)
[2017-12-18] MEDS: HEPARIN SOD,PORK IN 0.45% NACL 25,000 UNIT in 0.45% NACL 1 500ML.BAG IV SCH ×2 (03:39→21:13)
[2017-12-18 03:48] LABS: Glucose,Whole Blood 147 mg/dL (75-99)
[2017-12-18 05:23] LABS: HCT 28.6 % (34.0-46.0); HGB 8.9 gm/dL (11.4-16.0); Hypochromasia Moderate; MCH 27.4 pg (25.0-35.0); MCV 88.2 fL (80.0-100.0); Mean Platelet Volume 7.4; Platelet Count 399 k/uL (150-450); RBC 3.24 m/uL (3.80-5.40); RDW 15.5 % (11.5-15.5); WBC 22.4 k/uL (3.8-10.6)
[2017-12-18 05:36] LABS: ALT 53 U/L (9-52); AST 32 U/L (14-36); Albumin 2.8 g/dL (3.5-5.0); Alkaline Phosphatase 235 U/L (38-126); Anion Gap 11 mmol/L; Blood Urea Nitrogen 9 mg/dL (7-17); Calcium 8.5 mg/dL (8.4-10.2); Carbon Dioxide 14 mmol/L (22-30); Chloride 111 mmol/L (98-107); Glucose 139 mg/dL (74-99); Phosphorus 3.4 mg/dL (2.5-4.5); Potassium 4.3 mmol/L (3.5-5.1); Sodium 136 mmol/L (137-145); Total Bilirubin 0.9 mg/dL (0.2-1.3); Total Protein 5.1 g/dL (6.3-8.2)
[2017-12-18 06:06] LABS: Band Neutrophils % 7 %; Eosinophils # (M) 0.67 k/uL (0-0.7); Lymphocytes # (M) 1.12 k/uL (1.0-4.8); Monocytes # (M) 2.24 k/uL (0-1.0); Myelocytes # (M) 1.34 k/uL (0); Myelocytes % 6 %; Neutrophils % (M) 71 %; Nucleated Red Blood Cells 0 /100 WBC (0-0); Total Cells Counted 200
[2017-12-18 06:07] LABS: Large Platelets Present; Polychromasia Present
[2017-12-18 06:08] LABS: Poikilocytosis (M) Present
[2017-12-18] MEDS: KETOROLAC 30 MG/ML 1 ML VIAL IVP SCH ×4 (06:11→23:54)
[2017-12-18] MEDS: LEVOTHYROXINE 75 MCG TAB PO SCH (06:12)
[2017-12-18] MEDS ORDERED: D5W WITH KCL 20 MEQ/L 1,000 ML IV ONE (06:30)
[2017-12-18 07:29] LABS: Glucose,Whole Blood 153 mg/dL (75-99)
--- NOTE | 2017-12-18 07:58 | XR ---
EXAMINATION TYPE: XR chest 1V DATE OF EXAM: 12/18/2017 CLINICAL HISTORY: Difficulty breathing progress study. TECHNIQUE: Single AP portable semiupright view of the chest is obtained. COMPARISON: Chest x-ray from one day earlier and older studies. CT chest from 10 days ago. FINDINGS: Sternal wires and mediastinal clips as well as cardiac closure device are all redemonstrat ed. There is large right subcarinal calcified lymph node redemonstrated. Cardiac silhouette size is s table and upper limits of normal. There is chronic emphysematous change with developing right upper l obe opacity and developing left hilar opacity. There is persistent left basilar opacity suspect small bilateral pleural effusions. Osseous structures are somewhat demineralized. IMPRESSION: Chronic emphysematous change with persistent small bilateral pleural effusions and left b asilar atelectasis and/or infiltrate. There is worsening left hilar edema and/or infiltrate and devel oping right upper lobe infiltrate identified.
[2017-12-18] MEDS: AMIODARONE 200 MG TAB PO SCH ×2 (08:44→21:07)
[2017-12-18] MEDS: METOPROLOL TARTRATE 50 MG TAB PO SCH ×2 (08:44→21:07)
[2017-12-18] MEDS: PANTOPRAZOLE 40 MG TABLET PO SCH (08:44)
[2017-12-18] MEDS: ASPIRIN 81 MG PO SCH (08:44)
[2017-12-18] MEDS: ATORVASTATIN 40 MG TAB PO SCH (08:44)
[2017-12-18] MEDS: DULoxetine HCL 60 MG CAPSULE.DR PO SCH (08:44)
[2017-12-18] MEDS: INSULIN ASPART 100 UNIT/ML 1 ML 10 ML VIAL SQ SCH ×4 (08:49→21:30)
[2017-12-18] MEDS: PIPERACILLIN-TAZOBACTAM 3.375 GM in DEXTROSE/WATER 1 50ML.BAG IVPB SCH ×3 (08:49→23:56)
[2017-12-18] MEDS ORDERED: SODIUM BICARB 8.4% 50 ML SYR (1 MEQ/ML) IV ONE (08:57)
[2017-12-18] MEDS ORDERED: DEXTROSE 5% IN WATER 1,000 ML with SODIUM ACETATE 100 MEQ IV SCH (09:00)
[2017-12-18] MEDS: IPRATROPIUM-ALBUTEROL 3 ML NEB INHALATION SCH ×4 (09:01→19:59)
[2017-12-18] MEDS ORDERED: DEXTROSE IV ONE (09:08)
[2017-12-18] MEDS ORDERED: SOD BICARB IV ONE (09:08)
[2017-12-18] MEDS ORDERED: WATER IV ONE (09:08)
[2017-12-18] MEDS: HYDROcodone/APAP 5-325MG 1 EACH TAB PO PRN ×3 (09:12→22:16)
[2017-12-18] MEDS ORDERED: DEXTROSE 5% IN WATER 1,000 ML with SOD BICARB SYR 8.4% (1 MEQ/ML) 150 ML IV ONE (11:00)
--- NOTE | 2017-12-18 11:10 | P.PN ---
Subjective Progress Note Date: 12/18/17 Principal diagnosis: Coronary artery disease with critical left main disease. Preserved left ventricular function. Previous medical history of hypertension, hyperlipidemia , diabetes mellitus with preoperative hemoglobin A1c 8.1%, hypothyroid, chest granulomatous disease, peripheral vascular disease status post right fem-pop bypass, previous tobacco dependence with FEV1 109% of predicted in November 2016, recent fall in June 2017 with torn right rotator cuff, questionable DVT with previous Coumadin use greater than 2 years ago, syncopal episodes, paroxysmal atrial fibrillation, chronic low back pain, obesity, and depression. Preoperative E. coli urinary tract infection. POD #7 urgent quadruple coronary artery bypass grafting using the left internal mammary sequentially to the diagonal artery and to the left anterior descending artery, reverse saphenous vein graft from the aorta to the first obtuse marginal , reverse saphenous vein graft from the aorta to the third obtuse marginal artery. Bilateral pulmonary vein isolation using the AtriCure radiofrequency clamp. Exclusion of the left atrial appendage using a 35 mm AtriClip. Intraoperative transesophageal echocardiogram and epi-aortic scanning. Postoperative elevation in transaminases, an unexpected outcome, resolving. Leukocytosis, present preoperatively. Postoperative diarrhea, an unexpected outcome. Postoperative normocytic, normochromic anemia, and expected outcome of surgery secondary to cardiopulmonary bypass and hemodilution. Postoperative urinary retention, an unexpected outcome. Patient is currently laying in bed in the intensive care unit in no acute distress. Currently alert and oriented 3 with no focal deficits. Hemodynamically stable. Has remained afebrile. Lactic acid peak at 3.5, most recent 1.5. Continues on IV vancomycin and Zosyn. Patient continues to have significant diarrhea, C. diff negative 2 specimens. Urine culture, blood culture, stool culture negative. IV heparin infusing. Almaguer catheter was replaced for urinary retention. Objective - Vital Signs Vital signs: Vital Signs Temp 98 F 12/18/17 08:00 Pulse 73 12/18/17 10:00 Resp 33 H 12/18/17 10:00 BP 158/79 12/18/17 10:00 Pulse Ox 98 12/18/17 10:00 Intake & Output 12/17/17 12/18/17 12/18/17 18:59 06:59 18:59 Intake Total 2577.363 2159.685 650 Output Total 1730 1120 570 Balance 508.664 5528.685 80 Weight 86.6 kg 87.8 kg Intake: IV 896.5 1270.0 410 0.9 NACL 20 220 60 D5-0.45% NaCl with KCl 80 20Meq/l 1,000 ml @ 80 mls /hr IV .[id number] [facility] Rx#: [id number] D5w with KCl 20 Meq/l 1, 750 300 000 ml @ 75 mls/hr IV . [id number] [facility] Rx#:[id number] Piperacillin-Tazobactam 3 37.5 50.0 50 .375 gm In Dextrose/Water 1 50ml.bag @ 12.5 mls/hr IVPB Q8HR [facility] Rx#: [id number] Vancomycin 1,500 mg In 250 Sodium Chloride 0.9% 250 ml @ 125 mls/hr IVPB Q12H [facility] Rx#:[id number] potassium phosphate 759 Intake, IV Titration 1360.863 289.685 Amount D5w with KCl 20 Meq/l 1, 375 000 ml @ 75 mls/hr IV . [id number] [facility] Rx#:[id number] Heparin Sod,Pork in 0.45% 635.863 289.685 NaCl 25,000 unit In 0.45 % NaCl 1 500ml.bag @ 11.1 UNITS/KG/HR 20 mls/hr IV .Q24H [facility] Rx#:[id number] Potassium Chloride 10 meq 100 In Water For Injection 1 100ml.bag @ 100 mls/hr IVPB Q1H [facility] Rx#: [id number] Vancomycin 1,500 mg In 250 Sodium Chloride 0.9% 250 ml @ 125 mls/hr IVPB Q12H [facility] Rx#:[id number] Oral 320 600 240 Output: Urine 1730 1070 570 Stool 50 Other: Voiding Method Indwelling Catheter Indwelling Catheter Indwelling Catheter # Bowel Movements 1 3 ABP, PAP, CO, CI - Last Documented Arterial Blood Pressure 122/59 Pulmonary Artery Pressure 4/4 Cardiac Output 4.5 Cardiac Index 2.5 - Constitutional General appearance: Present: cooperative, no acute distress, obese - Respiratory Details: Lungs sounds diminished bilaterally. Respirations even, nonlabored. Currently on room air with oxygen saturation 97%. Able to achieve 1000 mL on her incentive spirometry. Mammary support in place. - Cardiovascular Details: S1, S2 present. Regular rate and rhythm, sinus rhythm on telemetry. Sternum stable. Palpable peripheral pulses bilaterally. No edema present. No calf pain or tenderness noted. Heart hugger in place with patient occasionally demonstrating appropriate use. Antiembolism stockings, SCDs present. - Gastrointestinal Gastrointestinal Comment(s): Abdomen soft, nontender, nondistended. Active bowel sounds 4 quadrants. Tolerating clear liquid diet. Positive loose diarrhea. - Genitourinary Genitourinary Comment(s): Almaguer present draining clear, yellow urine. Output 50-150 mL per hour overnight. - Integumentary Integumentary Comment(s): Skin is warm and dry with evidence of good perfusion. Anterior chest incision well approximated and covered with dry intact dressing. Left lower extremity EVH site well approximated. - Neurologic Neurologic: Present: CNII-XII intact - Musculoskeletal Musculoskeletal: Present: generalized weakness, strength equal bilaterally - Psychiatric Psychiatric: Present: A&O x's 3 - Allied health notes Allied health notes reviewed: nursing - Labs CBC & Chem 7: 12/18/17 04:30 12/18/17 04:30 Labs: Abnormal Lab Results - Last 24 Hours (Table) 12/17/17 12/17/17 12/17/17 Range/Units 11:52 17:55 17:57 WBC (3.8-10.6) k/uL RBC (3.80-5.40) m/uL Hgb (11.4-16.0) gm/dL Hct (34.0-46.0) % Neutrophils # (Manual) (1.3-7.7) k/uL Monocytes # (Manual) (0-1.0) k/uL Myelocytes # (Manual) (0) k/uL APTT 40.3 H (22.0-30.0) sec Sodium (137-145) mmol/L Chloride (98-107) mmol/L Carbon Dioxide (22-30) mmol/L Glucose (74-99) mg/dL POC Glucose (mg/dL) 167 H 181 H (75-99) mg/dL ALT (9-52) U/L Alkaline Phosphatase (38-126) U/L Total Protein (6.3-8.2) g/dL Albumin (3.5-5.0) g/dL 12/17/17 12/18/17 12/18/17 Range/Units 21:43 01:13 03:47 WBC (3.8-10.6) k/uL RBC (3.80-5.40) m/uL Hgb (11.4-16.0) gm/dL Hct (34.0-46.0) % Neutrophils # (Manual) (1.3-7.7) k/uL Monocytes # (Manual) (0-1.0) k/uL Myelocytes # (Manual) (0) k/uL APTT 50.7 H (22.0-30.0) sec Sodium (137-145) mmol/L Chloride (98-107) mmol/L Carbon Dioxide (22-30) mmol/L Glucose (74-99) mg/dL POC Glucose (mg/dL) 156 H 147 H (75-99) mg/dL ALT (9-52) U/L Alkaline Phosphatase (38-126) U/L Total Protein (6.3-8.2) g/dL Albumin (3.5-5.0) g/dL 12/18/17 12/18/17 12/18/17 Range/Units 04:30 04:30 07:28 WBC 22.4 H (3.8-10.6) k/uL RBC 3.24 L (3.80-5.40) m/uL Hgb 8.9 L (11.4-16.0) gm/dL Hct 28.6 L (34.0-46.0) % Neutrophils # (Manual) 17.40 H (1.3-7.7) k/uL Monocytes # (Manual) 2.24 H (0-1.0) k/uL Myelocytes # (Manual) 1.34 H (0) k/uL APTT (22.0-30.0) sec Sodium 136 L (137-145) mmol/L Chloride 111 H (98-107) mmol/L Carbon Dioxide 14 L (22-30) mmol/L Glucose 139 H (74-99) mg/dL POC Glucose (mg/dL) 153 H (75-99) mg/dL ALT 53 H (9-52) U/L Alkaline Phosphatase 235 H (38-126) U/L Total Protein 5.1 L (6.3-8.2) g/dL Albumin 2.8 L (3.5-5.0) g/dL Microbiology - Last 24 Hours (Table) 12/13/17 22:12 Blood Culture - Preliminary Blood No Growth after 96 hours - Imaging and Cardiology Chest x-ray: report reviewed, image reviewed Assessment and Plan (1) Coronary artery disease involving left main coronary artery Current Visit: Yes Status: Chronic Code(s): I25.10 - ATHSCL HEART DISEASE OF [place] CORONARY ARTERY W/O ANG PCTRS SNOMED Code(s): 206823309 (2) Hypertension Current Visit: Yes Status: Chronic Code(s): I10 - ESSENTIAL (PRIMARY) HYPERTENSION SNOMED Code(s): 17772371 (3) Hyperlipidemia Current Visit: Yes Status: Chronic Code(s): E78.5 - HYPERLIPIDEMIA, UNSPECIFIED SNOMED Code(s): 66798675 (4) Diabetes Current Visit: Yes Status: Chronic Code(s): E11.9 - TYPE 2 DIABETES MELLITUS WITHOUT COMPLICATIONS SNOMED Code(s): 14829803 (5) Peripheral vascular disease Current Visit: Yes Status: Chronic Code(s): I73.9 - PERIPHERAL VASCULAR DISEASE, UNSPECIFIED SNOMED Code(s): 015537481 (6) Family history of heart disease Current Visit: Yes Status: Chronic Code(s): Z82.49 - FAMILY HX OF ISCHEM HEART DIS AND OTH DIS OF THE CIRC SYS SNOMED Code(s): 215594005 (7) Tobacco dependence in remission Current Visit: No Status: Resolved Code(s): F17.201 - NICOTINE DEPENDENCE, UNSPECIFIED, IN REMISSION SNOMED Code(s): 224046824 (8) Hypothyroid Current Visit: Yes Status: Chronic Code(s): E03.9 - HYPOTHYROIDISM, UNSPECIFIED SNOMED Code(s): 66624385 (9) Syncopal episodes Current Visit: No Status: Chronic Code(s): R55 - SYNCOPE AND COLLAPSE SNOMED Code(s): 408856240 (10) History of DVT (deep vein thrombosis) Current Visit: No Status: Resolved Code(s): Z86.718 - PERSONAL HISTORY OF OTHER VENOUS THROMBOSIS AND EMBOLISM SNOMED Code(s): 042638883 (11) History of atrial fibrillation Current Visit: No Status: Resolved Code(s): Z86.79 - PERSONAL HISTORY OF OTHER DISEASES OF THE CIRCULATORY SYSTEM SNOMED Code(s): 047405670 (12) Chronic low back pain Current Visit: Yes Status: Chronic Code(s): M54.5 - LOW BACK PAIN; G89.29 - OTHER CHRONIC PAIN SNOMED Code(s): 540706422 (13) Depression Current Visit: Yes Status: Chronic Code(s): F32.9 - MAJOR DEPRESSIVE DISORDER, SINGLE EPISODE, UNSPECIFIED SNOMED Code(s): 57523389 Plan: 1. Continue aspirin, statin, beta sheree. Will increase beta sheree therapy as tolerated. Continue heparin drip per protocol. 2. Encourage incentive spirometry use 10 times every hour. Patient needs much encouragement to cough and deep breathe. 3. Increase activity, ambulate as tolerated. PT/OT/cardiac rehab following. 4. Continue amiodarone for A. fib prophylaxis. Will decrease to 200 mg twice daily tomorrow. 5. Continue Zosyn, vancomycin per Dr. Mccartney recommendations. C. diff sample negative 2. Stool culture, blood culture, urine culture negative. 6. Sodium bicarb added to IV fluids. 7. Continue clear liquid diet while diarrhea continues. 8. Gen. surgery consulted regarding previous abdominal pain, diarrhea, appreciate recommendations. 9. Appreciate urology recommendations. Will keep Almaguer catheter for now for retention. 10. Monitor daily labs, chest x-rays. 11. GI/DVT prophylaxis. 12. Pain control with current medication regimen. 13. Bronchodilators per pulmonology. 14. Insulin/diabetic management per Dr. Yousif. 15. Continue neuro checks. 16. More recommendations to follow. Patient will need rehab at discharge. Will order Dr. Medrano consulted. Time with Patient: Greater than 30
[2017-12-18] MEDS: CYANOCOBALAMIN 500 MCG TAB PO SCH (12:05)
[2017-12-18] MEDS: ASCORBIC ACID 500 MG TAB PO SCH (12:05)
[2017-12-18] MEDS: FERROUS SULFATE 325 MG TAB PO SCH (12:06)
[2017-12-18 12:14] LABS: Glucose,Whole Blood 134 mg/dL (75-99)
--- NOTE | 2017-12-18 14:51 | P.PN ---
Subjective Progress Note Date: 12/18/17 On today's evaluation of a 22,018 Carolyn is back to the intensive care unit. She is postop day #7 following her coronary artery bypass surgery. She got transferred because of an extensive liquidy/watery diarrhea which left her into a dehydrated state and causes some non-anion gap metabolic acidosis. Her bicarb level is down to 14. She had 3 additional liquidy bowel movements this morning. The patient was seen by general surgery. CAT scan of the abdomen was done raising the possibility of an underlying ischemic colitis. She was placed on accommodation Zosyn and vancomycin. No fever or chills. She also had gone into atrial fibrillation. The rate is controlled right now with metoprolol and amiodarone and the patient is also on IV heparin. She is complaining of pain throughout her chest and body mainly in the joints and she has been taken hydrocodone outpatient basis. I restarted her on [place] 5 every 6 hours for pain control pH is using incentive spirometer. She is on IV fluids and she'll be started on a bicarb drip. The patient's chest x-ray from today showed small bilateral pleural effusion and basilar atelectasis and left lung base. There is also artifact from external objects on the chest x-ray. The postoperative echocardiogram showed a preserved LV function with an ejection fraction of 50-55 %. No valvular abnormalities noted. Objective - Vital Signs Vital signs: Vital Signs Temp 97.9 F 12/18/17 12:00 Pulse 71 12/18/17 14:00 Resp 21 12/18/17 14:00 BP 135/78 12/18/17 14:00 Pulse Ox 97 12/18/17 14:00 Intake & Output 12/17/17 12/18/17 12/18/17 18:59 06:59 18:59 Intake Total 2577.363 2159.685 990 Output Total 1730 1120 820 Balance 987.324 6525.685 170 Weight 86.6 kg 87.8 kg Intake: IV 896.5 1270.0 525 0.9 NACL 20 220 100 D5-0.45% NaCl with KCl 80 20Meq/l 1,000 ml @ 80 mls /hr IV .[id number] [facility] Rx#: [id number] D5w with KCl 20 Meq/l 1, 750 375 000 ml @ 75 mls/hr IV . [id number] ONE Rx#:[id number] Piperacillin-Tazobactam 3 37.5 50.0 50 .375 gm In Dextrose/Water 1 50ml.bag @ 12.5 mls/hr IVPB Q8HR [facility] Rx#: [id number] Vancomycin 1,500 mg In 250 Sodium Chloride 0.9% 250 ml @ 125 mls/hr IVPB Q12H [facility] Rx#:[id number] potassium phosphate 759 Intake, IV Titration 1360.863 289.685 225 Amount D5w with KCl 20 Meq/l 1, 375 000 ml @ 75 mls/hr IV . [id number] [facility] Rx#:[id number] Dextrose 5% in Water 1, 225 000 ml @ 75 mls/hr IV . [id number] ONE with Sod Bicarb Syr 8.4% (1 Meq/ml ) 3 ml Rx#:[id number] Heparin Sod,Pork in 0.45% 635.863 289.685 NaCl 25,000 unit In 0.45 % NaCl 1 500ml.bag @ 11.1 UNITS/KG/HR 20 mls/hr IV .Q24H [facility] Rx#:[id number] Potassium Chloride 10 meq 100 In Water For Injection 1 100ml.bag @ 100 mls/hr IVPB Q1H [facility] Rx#: [id number] Vancomycin 1,500 mg In 250 Sodium Chloride 0.9% 250 ml @ 125 mls/hr IVPB Q12H [facility] Rx#:[id number] Oral 320 600 240 Output: Urine 1730 1070 820 Stool 50 Other: Voiding Method Indwelling Catheter Indwelling Catheter Indwelling Catheter # Bowel Movements 1 3 ABP, PAP, CO, CI - Last Documented Arterial Blood Pressure 122/59 Pulmonary Artery Pressure 4/4 Cardiac Output 4.5 Cardiac Index 2.5 - Exam No acute distress, oriented 3. No need for supplemental oxygen. The patient' s major complaint is back and leg pain HEENT examination is grossly unremarkable. Mucous membranes are moist. No oral lesions. Neck supple. Full range of motion. No adenopathy thyromegaly or neck vein distention. Cardiovascular examination reveals irregular rhythm rate. S1-S2 normal. No S3 or S4. No discernible murmur noted. Heart sounds are distant. Sternum stable clean and intact and there is no evidence of any wound infection with dehiscence Lungs reveal mostly clear breath sounds. A few scattered rhonchi are noted. Breath sounds are equal bilaterally and there is reasonable air exchange. Abdomen soft bowel sounds are heard. No masses or tenderness. Extremities are intact. No cyanosis clubbing or edema. Skin Examination of the skin revealed no evidence of significant rashes, suspicious appearing nevi or other concerning lesions. Neurologic examination is brief but nonfocal. - Labs CBC & Chem 7: 12/18/17 04:30 12/18/17 04:30 Labs: Abnormal Lab Results - Last 24 Hours (Table) 12/17/17 12/17/17 12/17/17 Range/Units 17:55 17:57 21:43 WBC (3.8-10.6) k/uL RBC (3.80-5.40) m/uL Hgb (11.4-16.0) gm/dL Hct (34.0-46.0) % Neutrophils # (Manual) (1.3-7.7) k/uL Monocytes # (Manual) (0-1.0) k/uL Myelocytes # (Manual) (0) k/uL APTT 40.3 H (22.0-30.0) sec Sodium (137-145) mmol/L Chloride (98-107) mmol/L Carbon Dioxide (22-30) mmol/L Glucose (74-99) mg/dL POC Glucose (mg/dL) 181 H 156 H (75-99) mg/dL ALT (9-52) U/L Alkaline Phosphatase (38-126) U/L Total Protein (6.3-8.2) g/dL Albumin (3.5-5.0) g/dL 12/18/17 12/18/17 12/18/17 Range/Units 01:13 03:47 04:30 WBC 22.4 H (3.8-10.6) k/uL RBC 3.24 L (3.80-5.40) m/uL Hgb 8.9 L (11.4-16.0) gm/dL Hct 28.6 L (34.0-46.0) % Neutrophils # (Manual) 17.40 H (1.3-7.7) k/uL Monocytes # (Manual) 2.24 H (0-1.0) k/uL Myelocytes # (Manual) 1.34 H (0) k/uL APTT 50.7 H (22.0-30.0) sec Sodium (137-145) mmol/L Chloride (98-107) mmol/L Carbon Dioxide (22-30) mmol/L Glucose (74-99) mg/dL POC Glucose (mg/dL) 147 H (75-99) mg/dL ALT (9-52) U/L Alkaline Phosphatase (38-126) U/L Total Protein (6.3-8.2) g/dL Albumin (3.5-5.0) g/dL 12/18/17 12/18/17 12/18/17 Range/Units 04:30 07:28 12:12 WBC (3.8-10.6) k/uL RBC (3.80-5.40) m/uL Hgb (11.4-16.0) gm/dL Hct (34.0-46.0) % Neutrophils # (Manual) (1.3-7.7) k/uL Monocytes # (Manual) (0-1.0) k/uL Myelocytes # (Manual) (0) k/uL APTT (22.0-30.0) sec Sodium 136 L (137-145) mmol/L Chloride 111 H (98-107) mmol/L Carbon Dioxide 14 L (22-30) mmol/L Glucose 139 H (74-99) mg/dL POC Glucose (mg/dL) 153 H 134 H (75-99) mg/dL ALT 53 H (9-52) U/L Alkaline Phosphatase 235 H (38-126) U/L Total Protein 5.1 L (6.3-8.2) g/dL Albumin 2.8 L (3.5-5.0) g/dL Microbiology - Last 24 Hours (Table) 12/13/17 22:12 Blood Culture - Preliminary Blood No Growth after 96 hours Assessment and Plan Plan: #1. Multivessel coronary artery disease, involving left main coronary artery. And is awaiting coronary artery bypass grafting and surgery was done 12/11/2017 18 and the patient is postop day #7. The patient recovered well and she was extubated and stabilized and she was moved out of the intensive care unit to be readmitted for intravascular volume depletion, diarrhea, non-anion gap metabolic acidosis. #2. Acute diarrhea, suspecting an underlying component of ischemic colitis. The patient has a component of non-anion gap metabolic acidosis and her blood work. #3. Hyperlipidemia #4. Diabetes mellitus 2 #5. Atrial fibrillation, and expected outcome of surgery and the patient is currently well-controlled on a combination of amiodarone, metoprolol and the patient is also on IV heparin. #6. Peripheral vascular disease #7. 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 Hypothyroidism #9. Paroxysmal atrial fibrillation, currently in sinus rhythm #10. Chronic low back pain #11. Depression #12 obesity with a BMI of 34.3 #13 leukocytosis #14 anemia and expected outcome of surgery, normocytic Plan Encourage the use of incentive spirometer. [place] for pain control. Give the patient an amp of bicarb and started on a bicarb drip at the rate of 75 mL an hour of sodium bicarb with history of tobacco within the running infusion. Monitor the electrolytes. Monitor the stool output. Stop the vancomycin. Continued IV Zosyn. Monitor fever pattern. Stop the medication be called Change. We'll Continue to Follow Make Further Recommendations Based on Her Progress.
--- NOTE | 2017-12-18 15:51 | P.PN ---
Progress Note - Text Progress Note Date: 12/18/17 The patient is resting comfortably in her chair. She denies any significant abdominal pain. She is on a clear liquid diet. She has had poor oral intake. On exam her abdomen soft. There is no significant tenderness. Resolving ileus. Patient liver diet increased as tolerated once her bowel function returns.
[2017-12-18 16:54] LABS: Glucose,Whole Blood 170 mg/dL (75-99)
[2017-12-18 16:54] LABS: Glucose,Whole Blood 320 mg/dL (75-99)
--- NOTE | 2017-12-18 19:02 | P.PN ---
Subjective Progress Note Date: 12/18/17 This is a 72-year-old female patient who initially underwent a stress test that was positive followed by a heart catheterization that showed significant disease in the left main, mid LAD and ostial circumflex. She then underwent an urgent CABG 4 vessel on December 11. Patient seems to have been recovering well until yesterday. She was noted to develop a fever of 102.6, lactic acid was 2.3 and also liver enzymes elevated. She had been treated for E. coli urinary tract infection that was present on admission with Rocephin. Her antibiotics were then changed to Zosyn and vancomycin. Patient also had some hypersomnolence and confusion yesterday for which her narcotics were changed from oxycodone which she chronically takes for back pain and switched to [place] every 6, IV Tylenol and Toradol and patient continues to have significant back pain. She denies chest pain, shortness of breath, nausea or vomiting. She denies any diarrhea. She does have decreased appetite which is been going on since admission. She states that she feels better from yesterday and recognizes that she was lethargic yesterday. Today. she has been up for shower and has had a bowel movement. Patient had low urine output yesterday and received a dose of Lasix. She had a CAT scan of the brain that showed cerebral atrophy and chronic small vessel ischemia. No acute intracranial process. She states that she was coughing a lot this morning but no denies shortness of breath. Chest x-ray from this morning shows minimal pulmonary vascular congestion cannot be exaggerated by low lung volumes in addition to persistent unchanged retrocardiac airspace disease, likely atelectasis and trace pleural effusions. Patient was using incentive spirometer 2000 mL she yesterday. She has had no significant wound concerns. Chest tubes and Almaguer are out. Patient denies any burning or pain with urination. . Now back in the intensive care unit she's had some abdominal pain and with worsening of her status including lactic acidosis to was concerns to ischemic colitis. She has been seen by surgery is being closely followed. She is on antimicrobial therapy with piperacillin tazobactam and vancomycin which would give coverage for ischemic colitis. Severe back pain is modestly controlled at this time. Patient is given a fluid bolus it appears that her lactic acid has dropped from 3.5-1.0. Fluids were also changed from lactated Ringer's to D5/ 0.45% NaCl with 20 mEq of KCl 12/18/2017 patient is sitting up in the chair looking considerably better. She has some clear liquids that she is able to ingest. Abdominal pain is improved. She is not having further fever or hypotension. Lactic acid is improved Objective - Vital Signs Vital signs: Vital Signs Temp 97.5 F L 12/18/17 17:00 Pulse 72 12/18/17 18:00 Resp 18 12/18/17 18:00 BP 110/70 12/18/17 18:00 Pulse Ox 96 12/18/17 18:00 Intake & Output 12/17/17 12/18/17 12/18/17 18:59 06:59 18:59 Intake Total 2577.363 2159.685 1720 Output Total 1730 1120 1055 Balance 299.800 6546.685 665 Weight 86.6 kg 87.8 kg Intake: IV 896.5 1270.0 615 0.9 NACL 20 220 140 D5-0.45% NaCl with KCl 80 20Meq/l 1,000 ml @ 80 mls /hr IV .[id number] [facility] Rx#: [id number] D5w with KCl 20 Meq/l 1, 750 375 000 ml @ 75 mls/hr IV . [id number] [facility] Rx#:[id number] Piperacillin-Tazobactam 3 37.5 50.0 100 .375 gm In Dextrose/Water 1 50ml.bag @ 12.5 mls/hr IVPB Q8HR [facility] Rx#: [id number] Vancomycin 1,500 mg In 250 Sodium Chloride 0.9% 250 ml @ 125 mls/hr IVPB Q12H [facility] Rx#:[id number] potassium phosphate 759 Intake, IV Titration 1360.863 289.685 525 Amount D5w with KCl 20 Meq/l 1, 375 000 ml @ 75 mls/hr IV . [id number] [facility] Rx#:[id number] Dextrose 5% in Water 1, 525 000 ml @ 75 mls/hr IV . [id number] ONE with Sod Bicarb Syr 8.4% (1 Meq/ml ) 3 ml Rx#:[id number] Heparin Sod,Pork in 0.45% 635.863 289.685 NaCl 25,000 unit In 0.45 % NaCl 1 500ml.bag @ 11.1 UNITS/KG/HR 20 mls/hr IV .Q24H [facility] Rx#:[id number] Potassium Chloride 10 meq 100 In Water For Injection 1 100ml.bag @ 100 mls/hr IVPB Q1H [facility] Rx#: [id number] Vancomycin 1,500 mg In 250 Sodium Chloride 0.9% 250 ml @ 125 mls/hr IVPB Q12H [facility] Rx#:[id number] Oral 320 600 580 Output: Urine 1730 1070 1055 Stool 50 Other: Voiding Method Indwelling Catheter Indwelling Catheter Indwelling Catheter # Bowel Movements 1 3 ABP, PAP, CO, CI - Last Documented Arterial Blood Pressure 122/59 Pulmonary Artery Pressure 4/4 Cardiac Output 4.5 Cardiac Index 2.5 - Exam Gen: This is a 72-year-old female. She is sitting up in a chair at the bedside and appears to be somewhat uncomfortable. Patient is complaining of significant left sided back pain into her buttocks. HEENT: Head is atraumatic, normocephalic. Pupils equal, round. Sclerae is anicteric. Mucous members of the mouth are moist. NECK: Supple. No JVD. No lymphadenopathy. No thyromegaly. LUNGS: Clear to auscultation. No wheezes or rhonchi. No intercostal retractions. HEART: Regular rate and rhythm. No murmur. Sternal wound is intact. No significant drainage, erythema. ABDOMEN: Soft. Bowel sounds are present. No masses. No tenderness. EXTREMITIES: No pedal edema. Wound and left lower extremity shows no signs of infection. No drainage, significant erythema or edema. NEUROLOGICAL: Patient is awake, alert and oriented x3. Skin the surgical site the chest wall is intact without erythema crepitance or fluctuance vein harvest site is intact. - Labs CBC & Chem 7: 12/18/17 04:30 12/18/17 04:30 Labs: Abnormal Lab Results - Last 24 Hours (Table) 12/17/17 12/18/17 12/18/17 Range/Units 21:43 01:13 03:47 WBC (3.8-10.6) k/uL RBC (3.80-5.40) m/uL Hgb (11.4-16.0) gm/dL Hct (34.0-46.0) % Neutrophils # (Manual) (1.3-7.7) k/uL Monocytes # (Manual) (0-1.0) k/uL Myelocytes # (Manual) (0) k/uL APTT 50.7 H (22.0-30.0) sec Sodium (137-145) mmol/L Chloride (98-107) mmol/L Carbon Dioxide (22-30) mmol/L Glucose (74-99) mg/dL POC Glucose (mg/dL) 156 H 147 H (75-99) mg/dL ALT (9-52) U/L Alkaline Phosphatase (38-126) U/L Total Protein (6.3-8.2) g/dL Albumin (3.5-5.0) g/dL 12/18/17 12/18/17 12/18/17 Range/Units 04:30 04:30 07:28 WBC 22.4 H (3.8-10.6) k/uL RBC 3.24 L (3.80-5.40) m/uL Hgb 8.9 L (11.4-16.0) gm/dL Hct 28.6 L (34.0-46.0) % Neutrophils # (Manual) 17.40 H (1.3-7.7) k/uL Monocytes # (Manual) 2.24 H (0-1.0) k/uL Myelocytes # (Manual) 1.34 H (0) k/uL APTT (22.0-30.0) sec Sodium 136 L (137-145) mmol/L Chloride 111 H (98-107) mmol/L Carbon Dioxide 14 L (22-30) mmol/L Glucose 139 H (74-99) mg/dL POC Glucose (mg/dL) 153 H (75-99) mg/dL ALT 53 H (9-52) U/L Alkaline Phosphatase 235 H (38-126) U/L Total Protein 5.1 L (6.3-8.2) g/dL Albumin 2.8 L (3.5-5.0) g/dL 12/18/17 12/18/17 12/18/17 Range/Units 12:12 16:51 16:52 WBC (3.8-10.6) k/uL RBC (3.80-5.40) m/uL Hgb (11.4-16.0) gm/dL Hct (34.0-46.0) % Neutrophils # (Manual) (1.3-7.7) k/uL Monocytes # (Manual) (0-1.0) k/uL Myelocytes # (Manual) (0) k/uL APTT (22.0-30.0) sec Sodium (137-145) mmol/L Chloride (98-107) mmol/L Carbon Dioxide (22-30) mmol/L Glucose (74-99) mg/dL POC Glucose (mg/dL) 134 H 320 H 170 H (75-99) mg/dL ALT (9-52) U/L Alkaline Phosphatase (38-126) U/L Total Protein (6.3-8.2) g/dL Albumin (3.5-5.0) g/dL Microbiology - Last 24 Hours (Table) 12/15/17 14:15 Stool Culture - Final Stool 12/13/17 22:12 Blood Culture - Preliminary Blood No Growth after 96 hours Laboratory Results WBC 22.4 k/uL (3.8-10.6) H 12/18/17 04:30 RBC 3.24 m/uL (3.80-5.40) L 12/18/17 04:30 Hgb 8.9 gm/dL (11.4-16.0) L 12/18/17 04:30 Hct 28.6 % (34.0-46.0) L 12/18/17 04:30 MCV 88.2 fL (80.0-100.0) 12/18/17 04:30 MCH 27.4 pg (25.0-35.0) 12/18/17 04:30 MCHC 31.0 g/dL (31.0-37.0) 12/18/17 04:30 RDW 15.5 % (11.5-15.5) 12/18/17 04:30 Plt Count 399 k/uL (150-450) 12/18/17 04:30 Neutrophils % 88 % 12/16/17 05:31 Neutrophils % (Manual) 71 % 12/18/17 04:30 Band Neutrophils % 7 % 12/18/17 04:30 Lymphocytes % 5 % 12/16/17 05:31 Lymphocytes % (Manual) 5 % 12/18/17 04:30 Monocytes % 5 % 12/16/17 05:31 Monocytes % (Manual) 10 % 12/18/17 04:30 Eosinophils % 1 % 12/16/17 05:31 Eosinophils % (Manual) 3 % 12/18/17 04:30 Basophils % 0 % 12/16/17 05:31 Metamyelocytes % 2 % 12/17/17 07:15 Myelocytes % 6 % 12/18/17 04:30 Neutrophils # 17.9 k/uL (1.3-7.7) H 12/16/17 05:31 Neutrophils # (Manual) 17.40 k/uL (1.3-7.7) H 12/18/17 04:30 Lymphocytes # 1.0 k/uL (1.0-4.8) 12/16/17 05:31 Lymphocytes # (Manual) 1.12 k/uL (1.0-4.8) 12/18/17 04:30 Monocytes # 0.9 k/uL (0-1.0) 12/16/17 05:31 Monocytes # (Manual) 2.24 k/uL (0-1.0) H 12/18/17 04:30 Eosinophils # 0.2 k/uL (0-0.7) 12/16/17 05:31 Eosinophils # (Manual) 0.67 k/uL (0-0.7) 12/18/17 04:30 Basophils # 0.1 k/uL (0-0.2) 12/16/17 05:31 Metamyelocytes # (Man) 0.34 k/uL (0) H 12/17/17 07:15 Myelocytes # (Manual) 1.34 k/uL (0) H 12/18/17 04:30 Nucleated RBCs 0 /100 WBC (0-0) 12/18/17 04:30 Manual Slide Review Performed 12/18/17 04:30 Toxic Granulation Present 12/17/17 07:15 Large Platelets Present 12/18/17 04:30 RBC Morphology Normal 12/11/17 16:55 Polychromasia Present 12/18/17 04:30 Hypochromasia Moderate 12/18/17 04:30 Poikilocytosis (manual Present 12/18/17 04:30 PT 10.1 sec (9.0-12.0) 12/15/17 23:07 INR 1.0 (<1.2) 12/15/17 23:07 APTT 50.7 sec (22.0-30.0) H 12/18/17 01:13 Sample Site ANTIONETTE 12/11/17 17:34 ABG pH 7.38 (7.35-7.45) 12/11/17 17:34 ABG pCO2 43 mmHg (35-45) 12/11/17 17:34 ABG pO2 89 mmHg (83-108) 12/11/17 17:34 ABG HCO3 25 mmol/L (21-25) 12/11/17 17:34 ABG Total CO2 27 mmol/L (19-24) H 12/11/17 12:13 ABG O2 Saturation 97.0 % (94-97) 12/11/17 17:34 ABG Base Excess 0.2 mmol/L 12/11/17 17:34 ABG Hematocrit 20 % (34.0-46.0) L* 12/11/17 12:13 [place] Test Yes 12/11/17 17:34 ABG Sodium 136 mmol/L (135-146) 12/11/17 12:13 ABG Potassium 4.4 mmol/L (3.4-4.5) 12/11/17 12:13 ABG Ionized Calcium 4.2 mg/dL (4.5-5.3) L 12/11/17 12:13 ABG Glucose 204 mg/dL (75-99) H 12/11/17 12:13 ABG Lactic Acid 2.0 mmol/L (0.5-1.6) H 12/11/17 12:13 Hemoglobin 6.4 gm/dL (11.4-16.0) L* 12/11/17 12:13 FiO2 50 % 12/11/17 17:34 Sodium 136 mmol/L (137-145) L 12/18/17 04:30 Potassium 4.3 mmol/L (3.5-5.1) 12/18/17 04:30 Chloride 111 mmol/L (98-107) H 12/18/17 04:30 Carbon Dioxide 14 mmol/L (22-30) L 12/18/17 04:30 Anion Gap 11 mmol/L 12/18/17 04:30 BUN 9 mg/dL (7-17) 12/18/17 04:30 Creatinine 0.70 mg/dL (0.52-1.04) 12/18/17 04:30 Est GFR (CKD-EPI)AfAm >90 (>60 ml/min/1.73 sqM) 12/18/17 04:30 Est GFR (CKD-EPI)NonAf 88 (>60 ml/min/1.73 sqM) 12/18/17 04:30 Glucose 139 mg/dL (74-99) H 12/18/17 04:30 POC Glucose (mg/dL) 170 mg/dL (75-99) H 12/18/17 16:52 POC Glu [employer] Inspector ID Ana Bell 12/18/17 16:[address] Glu mg/dL 186 12/08/17 06:55 Hemoglobin A1c 8.1 % (4.0-6.0) H 12/08/17 06:55 Lactic Ac Sepsis Rflx Y 12/15/17 10:17 Plasma Lactic Acid [place] 1.5 mmol/L (0.7-2.0) 12/17/17 08:17 Calcium 8.5 mg/dL (8.4-10.2) 12/18/17 04:30 Ionized Calcium Adiel 5.0 mg/dL (4.5-5.3) 12/13/17 04:10 Phosphorus 3.4 mg/dL (2.5-4.5) 12/18/17 04:30 Magnesium 2.0 mg/dL (1.6-2.3) 12/18/17 04:30 Total Bilirubin 0.9 mg/dL (0.2-1.3) 12/18/17 04:30 AST 32 U/L (14-36) 12/18/17 04:30 ALT 53 U/L (9-52) H 12/18/17 04:30 Alkaline Phosphatase 235 U/L (38-126) H 12/18/17 04:30 Total Protein 5.1 g/dL (6.3-8.2) L 12/18/17 04:30 Albumin 2.8 g/dL (3.5-5.0) L 12/18/17 04:30 Triglycerides 89 mg/dL (<150) 12/08/17 06:55 Cholesterol 129 mg/dL (<200) 12/08/17 06:55 LDL Cholesterol, Calc 45 mg/dL (0-99) 12/08/17 06:55 HDL Cholesterol 66 mg/dL (40-60) H 12/08/17 06:55 Amylase <30 U/L (30-110) L 12/14/17 15:37 Lipase 25 U/L (23-300) 12/14/17 15:37 TSH 2.940 mIU/L (0.465-4.680) 12/08/17 06:55 Arterial Blood Potassium 4.4 mmol/L (3.4-4.5) 12/11/17 12:13 Arterial Blood Glucose 204 mg/dL (75-99) H 12/11/17 12:13 Urine Color Yellow 12/08/17 12:00 Urine Appearance Cloudy (Clear) H 12/08/17 12:00 Urine pH 7.5 (5.0-8.0) 12/08/17 12:00 Ur Specific [place] 1.044 (1.001-1.035) H 12/08/17 12:00 Urine Protein Negative (Negative) 12/08/17 12:00 Urine Glucose (UA) Negative (Negative) 12/08/17 12:00 Urine Ketones Negative (Negative) 12/08/17 12:00 Urine Blood Moderate (Negative) H 12/08/17 12:00 Urine Nitrite Negative (Negative) 12/08/17 12:00 Urine Bilirubin Negative (Negative) 12/08/17 12:00 Urine Urobilinogen <2.0 mg/dL (<2.0) 12/08/17 12:00 Ur Leukocyte Esterase Small (Negative) H 12/08/17 12:00 Urine RBC 2 /hpf (0-5) 12/08/17 12:00 Urine WBC 3 /hpf (0-5) 12/08/17 12:00 Ur Squamous Epith Cells 1 /hpf (0-4) 12/08/17 12:00 Urine Bacteria Occasional /hpf (None) H 12/08/17 12:00 Urine Mucus Rare /hpf (None) H 12/08/17 12:00 Stool Occult Blood Positive (Negative) H 12/16/17 04:45 Stl Cryptosporidium Ag Negative (Negative) 12/15/17 14:15 Stool Giardia Source Stool 12/15/17 14:15 Stl Giardia Antigen Negative (Negative) 12/15/17 14:15 Vancomycin Trough 17.7 ug/mL 12/16/17 08:33 C. difficile (EIA) Intrp Negative (Negative) 12/16/17 10:35 Hepatitis A IgM Ab Non-Reactive (Non-Reactive) 12/08/17 06:55 Hep Bs Antigen Non-Reactive (Non-Reactive) 12/08/17 06:55 Hep B Core IgM Ab Non-Reactive (Non-Reactive) 12/08/17 06:55 Hep C IgG Ab Non-Reactive (Non-Reactive) 12/08/17 06:55 Blood Type B Positive 12/10/17 05:38 Blood Type Confirm B Positive 12/10/17 10:21 Blood Type Recheck CABO Indicated 12/10/17 05:38 Antibody Screen NEGATIVE 12/10/17 05:38 Crossmatch See Detail 12/10/17 05:38 Transfuse Platelets 12/11/17 12/10/17 05:38 Spec Expiration Date 12/13/2017 - 233712/10/17 05:38 Microbiology 12/15/17 14:15 Stool Stool Culture - Final 12/13/17 22:12 Blood Blood Culture - Preliminary No Growth after 96 hours 12/12/17 17:00 Urine,Catheterized Urine Culture - Final 12/08/17 12:00 Urine,Clean Catch Urine Culture - Final Escherichia coli 12/08/17 12:00 Nasal Swab Nasal Screen MRSA/MSSA - Final Assessment and Plan (1) E. coli sepsis Narrative/Plan: 72 year old woman with history of CAD failed stress test now s/p CABG and was progressing but developed fever to 102. Found to have UTI and is now improving. He doesn't history of chronic back pain been of some contention over the last day because of excess sedation from her pain medications. She currently is on minimal premedication with orders to ensure that she is at least sitting up and getting some ambulation. Her shortness of breath is definitely improved her chest is without significant pain. She does have a history of urinary tract infections in the past, since the Almaguer is out she has some minimal discomfort but does not feel miserable. She's had difficulty with incontinence since the Almaguer has been removed, bladder scan was performed with only 200 mL noted. She does have a urine culture with Escherichia coli that is resistant to quinolone therapy. With her fever the antibiotic therapy was enhance Zosyn and vancomycin. Sternal wound does not appear to be infected at the moment does not seem to have pneumonia. 12/15/2017 reveals the patient to have a change of her status in that she developed abdominal pain as well as worsening of her status. This concerns to ischemic colitis and she was moved to the intensive care unit. She's been seen by general surgery. It is being monitored. She had worsening lactic acidosis is now showing improvement after fluid challenge. She is not having chest pain and her shortness of breath continues to improve. Blood cultures are negative but urine culture did have E. coli years that she does have significant underlying infection in the urinary system. Treatment has been with Zosyn which should also cover ischemic colitis at that is occurring at this time. There are concerns to bowel compromise possibly for microemboli in the postoperative time frame. With this heparin has been started. Cultures are process and she'll be monitored. Her significant leukocytosis showing some slight improvement. 12/18/2017 the patient is having some improvement. She is not having as much pain and is able to tolerate some oral intake with clear liquids and has had some flatus. Abdominal pain is steadily improved and overall feels better. Leukocytosis is trending to improvement. X-ray shows evidence of some worsening of the hilar edema.there are no new positive cultures on the E. coli has been isolated. Antibiotic therapy with Zosyn to complete 7 days of therapy for her E. coli urinary tract infection. Surgery is following for the transient ischemic colitis she's been anticoagulated, and final plans are being developed as far as her long-term anticoagulation. The lactic acidosis completely resolved. Status: Acute Code(s): A41.51 - SEPSIS DUE TO ESCHERICHIA COLI [E. COLI] SNOMED Code(s): 955312633 (2) Urinary tract infection Current Visit: Yes Status: Acute Code(s): N39.0 - URINARY TRACT INFECTION, SITE NOT SPECIFIED SNOMED Code(s): 16866394 (3) Coronary artery disease involving left main coronary artery Current Visit: Yes Status: Chronic Code(s): I25.10 - ATHSCL HEART DISEASE OF [place] CORONARY ARTERY W/O ANG PCTRS SNOMED Code(s): 485176366 (4) Fever Current Visit: Yes Status: Acute Code(s): R50.9 - FEVER, UNSPECIFIED SNOMED Code(s): 822360286
[2017-12-18 20:56] LABS: Glucose,Whole Blood 111 mg/dL (75-99)
[2017-12-18] MEDS: MELATONIN 3 MG TABLET PO SCH (21:07)
[2017-12-19 02:50] LABS: Glucose,Whole Blood 132 mg/dL (75-99)
[2017-12-19] MEDS: HYDROcodone/APAP 5-325MG 1 EACH TAB PO PRN ×4 (04:05→22:14)
[2017-12-19 05:01] LABS: Albumin 2.5 g/dL (3.5-5.0); Calcium 7.9 mg/dL (8.4-10.2); Magnesium 1.9 mg/dL (1.6-2.3); Phosphorus 3.3 mg/dL (2.5-4.5); Potassium 3.7 mmol/L (3.5-5.1); Total Bilirubin 0.8 mg/dL (0.2-1.3); Total Protein 4.6 g/dL (6.3-8.2)
[2017-12-19 05:06] LABS: HCT 24.9 % (34.0-46.0); Hypochromasia Slight; MCH 27.3 pg (25.0-35.0); MCHC 32.2 g/dL (31.0-37.0); MCV 84.8 fL (80.0-100.0); Mean Platelet Volume 7.4; Platelet Count 446 k/uL (150-450); RBC 2.94 m/uL (3.80-5.40); RDW 15.9 % (11.5-15.5); WBC 21.4 k/uL (3.8-10.6)
[2017-12-19 05:39] LABS: Band Neutrophils % 16 %; Eosinophils # (M) 0.21 k/uL (0-0.7); Metamyelocytes # (M) 0.86 k/uL (0); Metamyelocytes % 4 %; Monocytes # (M) 1.71 k/uL (0-1.0); Neutrophils % (M) 64 %; Nucleated Red Blood Cells 0 /100 WBC (0-0); Total Cells Counted 100
[2017-12-19 05:40] LABS: Polychromasia Present
[2017-12-19] MEDS ORDERED: POTASSIUM CHLORIDE ER 20 MEQ TAB.ER PO SCH (06:00)
[2017-12-19] MEDS: SODIUM CHLORIDE 0.9% 1,000 ML IV SCH ×2 (06:49→18:10)
[2017-12-19] MEDS: LEVOTHYROXINE 75 MCG TAB PO SCH (06:50)
--- NOTE | 2017-12-19 07:10 | XR ---
EXAMINATION TYPE: XR chest 1V DATE OF EXAM: 12/19/2017 COMPARISON: Prior chest 12/18/2017 HISTORY: Shortness of breath TECHNIQUE: Single frontal view of the chest is obtained. FINDINGS: The patient is rotated and post median sternotomy, atrial appendage clipping. No evident p neumothorax. There are overlying cardiac leads. Retrocardiac density has developed in the interval ob scuring the left hemidiaphragm and heart border. Lung volumes are low. Improved aeration noted in the upper lobes. Heart size is stable. Central vascularity unchanged. Subcarinal calcified node is prese nt. IMPRESSION: Left lower lobe atelectasis and associated effusion, correlate to exclude pneumonia. Fol low-up recommended.
[2017-12-19 07:29] LABS: Glucose,Whole Blood 141 mg/dL (75-99)
[2017-12-19] MEDS: KETOROLAC 30 MG/ML 1 ML VIAL IVP SCH ×3 (07:49→18:09)
[2017-12-19] MEDS: INSULIN ASPART 100 UNIT/ML 1 ML 10 ML VIAL SQ SCH ×4 (07:50→21:38)
--- NOTE | 2017-12-19 08:02 | PN ---
PROGRESS NOTE DATE OF SERVICE: 12/18/2017. INTERVAL HISTORY: This 72-year-old woman who was admitted with CAD, CABG and multiple medical issues at this time. Potassium is much improved at this time. The patient is on multiple antibiotics as well and the patient also had probably features of colitis also. The patient is on minimal amount of narcotic pain medication at this time. No chest pain. No palpitations. No fever. PHYSICAL EXAM: Alert and oriented x3. Pulse is 78, blood pressure 120/77, respirations 20, temp is normal, pulse ox 98% on room air. HEENT: Conjunctivae normal. Oral mucosa moist. NECK: No jugular venous distention. No carotid bruit. No lymph node enlargement. CARDIOVASCULAR: S1, S2. RESPIRATORY: Breath sounds diminished in the bases. No rhonchi, no crackles. ABDOMEN: Soft, nontender. LEGS: No edema, no swelling. NERVOUS SYSTEM: No focal deficits. LABS: WBC 22, hemoglobin is 8.9, sodium 136. ASSESSMENT: 1. Coronary artery disease, status post CABG. 2. Atrial fibrillation. 3. Change in mental status, metabolic encephalopathy, possibly medication induced, improved. 4. Diarrhea possibly colitis. 5. Abdominal pain. 6. Increased WBC on empiric antibiotics. 7. Coronary artery disease. 8. Diabetes mellitus type 2. 9. Increased LFTs. 10.Hypertension. 11.Hyperlipidemia. 12.History of degenerative joint disease. 13.History of hypothyroidism. 14.Allergic rhinitis. 15.History of nicotine dependence. 16.Increased WBC. 17.Anxiety, depression. 18.Urinary tract infection with E coli present on admission. 19.Urinary retention. RECOMMENDATIONS AND DISCUSSION: I recommend to continue current management, symptomatic treatment. Continue with antibiotics. Monitor lytes closely. Incentive spirometry. Use minimal pain medications. Closely follow with multiple consultants. Further recommendations to follow. MMODL / IJN: [id number] /
--- NOTE | 2017-12-19 08:10 | P.PN ---
Subjective Progress Note Date: 12/19/17 On today's evaluation of a 12/18/2017 Carolyn is back to the intensive care unit. She is postop day #7 following her coronary artery bypass surgery. She got transferred because of an extensive liquidy/watery diarrhea which left her into a dehydrated state and causes some non-anion gap metabolic acidosis. Her bicarb level is down to 14. She had 3 additional liquidy bowel movements this morning. The patient was seen by general surgery. CAT scan of the abdomen was done raising the possibility of an underlying ischemic colitis. She was placed on accommodation Zosyn and vancomycin. No fever or chills. She also had gone into atrial fibrillation. The rate is controlled right now with metoprolol and amiodarone and the patient is also on IV heparin. She is complaining of pain throughout her chest and body mainly in the joints and she has been taken hydrocodone outpatient basis. I restarted her on [place] 5 every 6 hours for pain control pH is using incentive spirometer. She is on IV fluids and she'll be started on a bicarb drip. The patient's chest x-ray from today showed small bilateral pleural effusion and basilar atelectasis and left lung base. There is also artifact from external objects on the chest x-ray. The postoperative echocardiogram showed a preserved LV function with an ejection fraction of 50-55 %. No valvular abnormalities noted. On today's evaluation of 12/19/2017, the patient is awake and alert and sitting up on a chair. The diarrhea has subsided significantly. She only had liquidy loose bowel movement there was small amount this morning. Otherwise, the patient is was resuscitated IV fluids. The patient received a bicarb infusion yesterday and her serum bicarb normalizes and earlier this morning associated to a normal saline infusion at the rate of 75 mL an hour. Her urine output is around 20-25 mL an hour. The patient's creatinine is normal. BUN is down to 7. Vascular electrodes are all within normal limits and her bicarb level is normalized. No nausea. No vomiting. No abdominal pain. She is taking clear liquid diet. No chest pain. Chest x-ray shows some mild pulmonary vascular congestion and atelectatic changes in lung bases bilaterally. She is on room air oxygen. Sternum stable clean and intact. She has E. coli in the urine and she is on IV Zosyn. Vancomycin was discontinued. IV heparin was discontinued. Her current rhythm is sinus. Objective - Vital Signs Vital signs: Vital Signs Temp 98.6 F 12/19/17 00:00 Pulse 66 12/19/17 07:30 Resp 28 H 12/19/17 07:30 BP 129/75 12/19/17 07:30 Pulse Ox 97 12/19/17 07:30 Intake & Output 12/18/17 12/19/17 12/19/17 18:59 06:59 18:59 Intake Total 2220 920 Output Total 1055 485 Balance 1165 435 Weight 87.8 kg Intake: IV 615 845 0.9 NACL 140 20 D5w with KCl 20 Meq/l 1, 375 000 ml @ 75 mls/hr IV . [id number] [facility] Rx#:[id number] D5w with KCl 20 Meq/l 1, 675 000 ml @ 75 mls/hr IV . [id number] [facility] Rx#:[id number] Piperacillin-Tazobactam 3 100 .375 gm In Dextrose/Water 1 50ml.bag @ 12.5 mls/hr IVPB Q8HR [facility] Rx#: [id number] Sodium Chloride 0.9% 1, 150 000 ml @ 75 mls/hr IV . [id number] [facility] Rx#:[id number] Intake, IV Titration 1025 75 Amount Dextrose 5% in Water 1, 525 75 000 ml @ 75 mls/hr IV . [id number] ONE with Sod Bicarb Syr 8.4% (1 Meq/ml ) 3 ml Rx#:[id number] Heparin Sod,Pork in 0.45% 500 NaCl 25,000 unit In 0.45 % NaCl 1 500ml.bag @ 11.1 UNITS/KG/HR 20 mls/hr IV .Q24H [facility] Rx#:[id number] Oral 580 Output: Urine 1055 485 Other: Voiding Method Indwelling Catheter Indwelling Catheter # Voids 1 # Bowel Movements 3 ABP, PAP, CO, CI - Last Documented Arterial Blood Pressure 122/59 Pulmonary Artery Pressure 4/4 Cardiac Output 4.5 Cardiac Index 2.5 - Exam No acute distress, oriented 3. No need for supplemental oxygen. The patient' s major complaint is back and leg pain HEENT examination is grossly unremarkable. Mucous membranes are moist. No oral lesions. Neck supple. Full range of motion. No adenopathy thyromegaly or neck vein distention. Cardiovascular examination reveals irregular rhythm rate. S1-S2 normal. No S3 or S4. No discernible murmur noted. Heart sounds are distant. Sternum stable clean and intact and there is no evidence of any wound infection with dehiscence Lungs reveal mostly clear breath sounds. A few scattered rhonchi are noted. Breath sounds are equal bilaterally and there is reasonable air exchange. Abdomen soft bowel sounds are heard. No masses or tenderness. Extremities are intact. No cyanosis clubbing or edema. Skin Examination of the skin revealed no evidence of significant rashes, suspicious appearing nevi or other concerning lesions. Neurologic examination is brief but nonfocal. - Labs CBC & Chem 7: 12/19/17 04:14 12/19/17 04:14 Labs: Abnormal Lab Results - Last 24 Hours (Table) 12/18/17 12/18/17 12/18/17 Range/Units 12:12 16:51 16:52 WBC (3.8-10.6) k/uL RBC (3.80-5.40) m/uL Hgb (11.4-16.0) gm/dL Hct (34.0-46.0) % RDW (11.5-15.5) % Neutrophils # (Manual) (1.3-7.7) k/uL Monocytes # (Manual) (0-1.0) k/uL Metamyelocytes # (Man) (0) k/uL APTT (22.0-30.0) sec Sodium (137-145) mmol/L Glucose (74-99) mg/dL POC Glucose (mg/dL) 134 H 320 H 170 H (75-99) mg/dL Calcium (8.4-10.2) mg/dL Alkaline Phosphatase (38-126) U/L Total Protein (6.3-8.2) g/dL Albumin (3.5-5.0) g/dL 12/18/17 12/19/17 12/19/17 Range/Units 20:55 02:47 04:14 WBC 21.4 H (3.8-10.6) k/uL RBC 2.94 L (3.80-5.40) m/uL Hgb 8.0 L (11.4-16.0) gm/dL Hct 24.9 L (34.0-46.0) % RDW 15.9 H (11.5-15.5) % Neutrophils # (Manual) 17.10 H (1.3-7.7) k/uL Monocytes # (Manual) 1.71 H (0-1.0) k/uL Metamyelocytes # (Man) 0.86 H (0) k/uL APTT (22.0-30.0) sec Sodium (137-145) mmol/L Glucose (74-99) mg/dL POC Glucose (mg/dL) 111 H 132 H (75-99) mg/dL Calcium (8.4-10.2) mg/dL Alkaline Phosphatase (38-126) U/L Total Protein (6.3-8.2) g/dL Albumin (3.5-5.0) g/dL 12/19/17 12/19/17 12/19/17 Range/Units 04:14 04:14 07:27 WBC (3.8-10.6) k/uL RBC (3.80-5.40) m/uL Hgb (11.4-16.0) gm/dL Hct (34.0-46.0) % RDW (11.5-15.5) % Neutrophils # (Manual) (1.3-7.7) k/uL Monocytes # (Manual) (0-1.0) k/uL Metamyelocytes # (Man) (0) k/uL APTT 49.0 H (22.0-30.0) sec Sodium 133 L (137-145) mmol/L Glucose 133 H (74-99) mg/dL POC Glucose (mg/dL) 141 H (75-99) mg/dL Calcium 7.9 L (8.4-10.2) mg/dL Alkaline Phosphatase 208 H (38-126) U/L Total Protein 4.6 L (6.3-8.2) g/dL Albumin 2.5 L (3.5-5.0) g/dL Microbiology - Last 24 Hours (Table) 12/13/17 22:12 Blood Culture - Preliminary Blood No Growth after 120 hours 12/15/17 14:15 Stool Culture - Final Stool Assessment and Plan Plan: #1. Multivessel coronary artery disease, involving left main coronary artery. And is awaiting coronary artery bypass grafting and surgery was done 12/11/2017 18 and the patient is postop day #8. #2. Acute diarrhea, suspecting an underlying component of ischemic colitis. The patient has a component of non-anion gap metabolic acidosis and her blood work. The patient was treated with a bicarb infusion and currently her bicarb level is normalized and she is back to normal sinus rhythm. She is doing extremely well and she is hemodynamically stable at this point in time. She is on IV Zosyn for now and vancomycin was discontinued. #3. Hyperlipidemia #4. Diabetes mellitus 2 #5. Atrial fibrillation, and expected outcome of surgery and the patient is currently well-controlled on a combination of amiodarone, metoprolol and the patient is also on IV heparin. The patient is back into sinus syndrome and the patient is currently off IV heparin. She is on amiodarone and metoprolol and the rate is well-controlled for now. #6. Peripheral vascular disease #7. History of nicotine dependence, currently in remission, quit 10 years ago, carries [id number] smoking history #8. Hypothyroidism #9. Paroxysmal atrial fibrillation, currently in sinus rhythm #10. Chronic low back pain #11. Depression #12 obesity with a BMI of 34.3 #13 leukocytosis #14 anemia and expected outcome of surgery, normocytic Plan Continue normal saline infusion. May use a 20 mg of IV Lasix to improved urine output if he continues to drop. Continue using incentive spirometer. Chest x- ray was reviewed. Pulmonary status is stable. Stop IV heparin and switch her to subcu heparin. Continued IV Zosyn. We'll continue to follow. She may chance for to select telemetry today.
[2017-12-19] MEDS: PIPERACILLIN-TAZOBACTAM 3.375 GM in DEXTROSE/WATER 1 50ML.BAG IVPB SCH ×2 (08:45→16:41)
[2017-12-19] MEDS: CLOPIDOGREL 75 MG TAB PO SCH (08:47)
[2017-12-19] MEDS: METOPROLOL TARTRATE 50 MG TAB PO SCH ×2 (09:23→20:23)
[2017-12-19] MEDS: ASPIRIN 81 MG PO SCH (09:23)
[2017-12-19] MEDS: DULoxetine HCL 60 MG CAPSULE.DR PO SCH (09:23)
[2017-12-19] MEDS: AMIODARONE 200 MG TAB PO SCH ×2 (09:23→20:23)
[2017-12-19] MEDS: PANTOPRAZOLE 40 MG TABLET PO SCH (09:23)
[2017-12-19] MEDS: ATORVASTATIN 40 MG TAB PO SCH (09:23)
[2017-12-19] MEDS: IPRATROPIUM-ALBUTEROL 3 ML NEB INHALATION SCH ×4 (10:09→20:34)
[2017-12-19] MEDS: FERROUS SULFATE 325 MG TAB PO SCH (11:32)
[2017-12-19] MEDS: CYANOCOBALAMIN 500 MCG TAB PO SCH (11:32)
[2017-12-19] MEDS: ASCORBIC ACID 500 MG TAB PO SCH (11:32)
[2017-12-19 12:18] LABS: Glucose,Whole Blood 153 mg/dL (75-99)
--- NOTE | 2017-12-19 13:19 | P.PN ---
Subjective Progress Note Date: 12/19/17 Principal diagnosis: Coronary artery disease with critical left main disease. Preserved left ventricular function. Previous medical history of hypertension, hyperlipidemia , diabetes mellitus with preoperative hemoglobin A1c 8.1%, hypothyroid, chest granulomatous disease, peripheral vascular disease status post right fem-pop bypass, previous tobacco dependence with FEV1 109% of predicted in November 2016, recent fall in June 2017 with torn right rotator cuff, questionable DVT with previous Coumadin use greater than 2 years ago, syncopal episodes, paroxysmal atrial fibrillation, chronic low back pain, obesity, and depression. Preoperative E. coli urinary tract infection. POD #8 urgent quadruple coronary artery bypass grafting using the left internal mammary sequentially to the diagonal artery and to the left anterior descending artery, reverse saphenous vein graft from the aorta to the first obtuse marginal , reverse saphenous vein graft from the aorta to the third obtuse marginal artery. Bilateral pulmonary vein isolation using the AtriCure radiofrequency clamp. Exclusion of the left atrial appendage using a 35 mm AtriClip. Intraoperative transesophageal echocardiogram and epi-aortic scanning. Postoperative elevation in transaminases, an unexpected outcome, resolving. Leukocytosis, present preoperatively. Postoperative diarrhea, an unexpected outcome. Postoperative normocytic, normochromic anemia, and expected outcome of surgery secondary to cardiopulmonary bypass and hemodilution. Postoperative urinary retention, an unexpected outcome. Patient is currently sitting up in the recliner in the intensive care unit in no acute distress. Currently alert and oriented 3 with no focal deficits. Hemodynamically stable. Has remained afebrile. Lactic acid peak at 3.5, most recent 1.5. Continues on IV Zosyn. Patient has had only one episode of diarrhea in the last 24 hours, C. diff negative 2 specimens. Urine culture, blood culture, stool culture negative. Almaguer catheter was replaced for urinary retention. Objective - Vital Signs Vital signs: Vital Signs Temp 98 F 12/19/17 12:00 Pulse 69 12/19/17 12:13 Resp 25 H 12/19/17 12:00 BP 133/69 12/19/17 12:00 Pulse Ox 100 12/19/17 12:00 Intake & Output 12/18/17 12/19/17 12/19/17 18:59 06:59 18:59 Intake Total 2220 920 412.5 Output Total 1055 485 121 Balance 1165 435 291.5 Weight 87.8 kg 87.8 kg Intake: IV 615 845 412.5 0.9 NACL 140 20 D5w with KCl 20 Meq/l 1, 375 000 ml @ 75 mls/hr IV . [id number] [facility] Rx#:[id number] D5w with KCl 20 Meq/l 1, 675 000 ml @ 75 mls/hr IV . [id number] [facility] Rx#:[id number] Piperacillin-Tazobactam 3 100 37.5 .375 gm In Dextrose/Water 1 50ml.bag @ 12.5 mls/hr IVPB Q8HR [facility] Rx#: [id number] Sodium Chloride 0.9% 1, 150 375 000 ml @ 75 mls/hr IV . [id number] [facility] Rx#:[id number] Intake, IV Titration 1025 75 Amount Dextrose 5% in Water 1, 525 75 000 ml @ 75 mls/hr IV . [id number] ONE with Sod Bicarb Syr 8.4% (1 Meq/ml ) 3 ml Rx#:[id number] Heparin Sod,Pork in 0.45% 500 NaCl 25,000 unit In 0.45 % NaCl 1 500ml.bag @ 11.1 UNITS/KG/HR 20 mls/hr IV .Q24H [facility] Rx#:[id number] Oral 580 Output: Urine 1055 485 121 Other: Voiding Method Indwelling Catheter Indwelling Catheter Indwelling Catheter # Voids 1 # Bowel Movements 3 ABP, PAP, CO, CI - Last Documented Arterial Blood Pressure 122/59 Pulmonary Artery Pressure 4/4 Cardiac Output 4.5 Cardiac Index 2.5 - Constitutional General appearance: Present: cooperative, no acute distress, obese - Respiratory Details: Lungs sounds diminished bilaterally. Respirations even, nonlabored. Currently on room air with oxygen saturation 98%. Able to achieve 1000 mL on her incentive spirometry. Mammary support in place. - Cardiovascular Details: S1, S2 present. Regular rate and rhythm, sinus rhythm on telemetry. Sternum stable. Palpable peripheral pulses bilaterally. No edema present. No calf pain or tenderness noted. Heart hugger in place with patient occasionally demonstrating appropriate use. Antiembolism stockings, SCDs present. - Gastrointestinal Gastrointestinal Comment(s): Abdomen soft, nontender, nondistended. Active bowel sounds 4 quadrants. Tolerating clear liquid diet. Positive loose diarrhea x 1 episode in the last 24 hours. - Genitourinary Genitourinary Comment(s): Almaguer present draining clear, yellow urine. Output 20-35 mL per hour overnight. - Integumentary Integumentary Comment(s): Skin is warm and dry with evidence of good perfusion. Anterior chest incision well approximated and covered with dry intact dressing. Left lower extremity EVH site well approximated. - Neurologic Neurologic: Present: CNII-XII intact - Musculoskeletal Musculoskeletal: Present: generalized weakness, strength equal bilaterally - Psychiatric Psychiatric: Present: A&O x's 3, appropriate affect, intact judgment & insight - Allied health notes Allied health notes reviewed: nursing - Labs CBC & Chem 7: 12/19/17 04:14 12/19/17 04:14 Labs: Abnormal Lab Results - Last 24 Hours (Table) 12/18/17 12/18/17 12/18/17 Range/Units 16:51 16:52 20:55 WBC (3.8-10.6) k/uL RBC (3.80-5.40) m/uL Hgb (11.4-16.0) gm/dL Hct (34.0-46.0) % RDW (11.5-15.5) % Neutrophils # (Manual) (1.3-7.7) k/uL Monocytes # (Manual) (0-1.0) k/uL Metamyelocytes # (Man) (0) k/uL APTT (22.0-30.0) sec Sodium (137-145) mmol/L Glucose (74-99) mg/dL POC Glucose (mg/dL) 320 H 170 H 111 H (75-99) mg/dL Calcium (8.4-10.2) mg/dL Alkaline Phosphatase (38-126) U/L Total Protein (6.3-8.2) g/dL Albumin (3.5-5.0) g/dL 12/19/17 12/19/17 12/19/17 Range/Units 02:47 04:14 04:14 WBC 21.4 H (3.8-10.6) k/uL RBC 2.94 L (3.80-5.40) m/uL Hgb 8.0 L (11.4-16.0) gm/dL Hct 24.9 L (34.0-46.0) % RDW 15.9 H (11.5-15.5) % Neutrophils # (Manual) 17.10 H (1.3-7.7) k/uL Monocytes # (Manual) 1.71 H (0-1.0) k/uL Metamyelocytes # (Man) 0.86 H (0) k/uL APTT (22.0-30.0) sec Sodium 133 L (137-145) mmol/L Glucose 133 H (74-99) mg/dL POC Glucose (mg/dL) 132 H (75-99) mg/dL Calcium 7.9 L (8.4-10.2) mg/dL Alkaline Phosphatase 208 H (38-126) U/L Total Protein 4.6 L (6.3-8.2) g/dL Albumin 2.5 L (3.5-5.0) g/dL 12/19/17 12/19/17 12/19/17 Range/Units 04:14 07:27 12:15 WBC (3.8-10.6) k/uL RBC (3.80-5.40) m/uL Hgb (11.4-16.0) gm/dL Hct (34.0-46.0) % RDW (11.5-15.5) % Neutrophils # (Manual) (1.3-7.7) k/uL Monocytes # (Manual) (0-1.0) k/uL Metamyelocytes # (Man) (0) k/uL APTT 49.0 H (22.0-30.0) sec Sodium (137-145) mmol/L Glucose (74-99) mg/dL POC Glucose (mg/dL) 141 H 153 H (75-99) mg/dL Calcium (8.4-10.2) mg/dL Alkaline Phosphatase (38-126) U/L Total Protein (6.3-8.2) g/dL Albumin (3.5-5.0) g/dL Microbiology - Last 24 Hours (Table) 12/15/17 14:15 Stool Culture - Final Stool 12/13/17 22:12 Blood Culture - Preliminary Blood No Growth after 120 hours - Imaging and Cardiology Chest x-ray: report reviewed, image reviewed Assessment and Plan (1) Coronary artery disease involving left main coronary artery Current Visit: Yes Status: Chronic Code(s): I25.10 - ATHSCL HEART DISEASE OF [place] CORONARY ARTERY W/O ANG PCTRS SNOMED Code(s): 410780685 (2) Hypertension Current Visit: Yes Status: Chronic Code(s): I10 - ESSENTIAL (PRIMARY) HYPERTENSION SNOMED Code(s): 83246050 (3) Hyperlipidemia Current Visit: Yes Status: Chronic Code(s): E78.5 - HYPERLIPIDEMIA, UNSPECIFIED SNOMED Code(s): 16104795 (4) Diabetes Current Visit: Yes Status: Chronic Code(s): E11.9 - TYPE 2 DIABETES MELLITUS WITHOUT COMPLICATIONS SNOMED Code(s): 81064116 (5) Peripheral vascular disease Current Visit: Yes Status: Chronic Code(s): I73.9 - PERIPHERAL VASCULAR DISEASE, UNSPECIFIED SNOMED Code(s): 096372872 (6) Family history of heart disease Current Visit: Yes Status: Chronic Code(s): Z82.49 - FAMILY HX OF ISCHEM HEART DIS AND OTH DIS OF THE CIRC SYS SNOMED Code(s): 500079330 (7) Tobacco dependence in remission Current Visit: No Status: Resolved Code(s): F17.201 - NICOTINE DEPENDENCE, UNSPECIFIED, IN REMISSION SNOMED Code(s): 682373282 (8) Hypothyroid Current Visit: Yes Status: Chronic Code(s): E03.9 - HYPOTHYROIDISM, UNSPECIFIED SNOMED Code(s): 71910885 (9) Syncopal episodes Current Visit: No Status: Chronic Code(s): R55 - SYNCOPE AND COLLAPSE SNOMED Code(s): 962655452 (10) History of DVT (deep vein thrombosis) Current Visit: No Status: Resolved Code(s): Z86.718 - PERSONAL HISTORY OF OTHER VENOUS THROMBOSIS AND EMBOLISM SNOMED Code(s): 337641212 (11) History of atrial fibrillation Current Visit: No Status: Resolved Code(s): Z86.79 - PERSONAL HISTORY OF OTHER DISEASES OF THE CIRCULATORY SYSTEM SNOMED Code(s): 997209910 (12) Chronic low back pain Current Visit: Yes Status: Chronic Code(s): M54.5 - LOW BACK PAIN; G89.29 - OTHER CHRONIC PAIN SNOMED Code(s): 967707687 (13) Depression Current Visit: Yes Status: Chronic Code(s): F32.9 - MAJOR DEPRESSIVE DISORDER, SINGLE EPISODE, UNSPECIFIED SNOMED Code(s): 05242264 Plan: 1. Continue aspirin, statin, beta sheree. Will increase beta sheree therapy as tolerated. Heparin drip discontinued. Plavix, subcu heparin restarted. 2. Encourage incentive spirometry use 10 times every hour. Patient needs much encouragement to cough and deep breathe. 3. Increase activity, ambulate as tolerated. PT/OT/cardiac rehab following. 4. Continue amiodarone for A. fib prophylaxis. Decrease to 200 mg twice daily today. 5. Consider discontinuing Zosyn, will defer to Dr. Mccartney recommendations. C. diff sample negative 2. Stool culture, blood culture, urine culture negative. 6. Sodium bicarb discontinued. 7. Continue clear liquid diet while diarrhea continues. 8. Gen. surgery consulted regarding previous abdominal pain, diarrhea, appreciate recommendations. 9. Appreciate urology recommendations. Will keep Almaguer catheter for now for retention. 10. Monitor daily labs, chest x-rays. 11. GI/DVT prophylaxis. 12. Pain control with current medication regimen. No narcotics. 13. Bronchodilators per pulmonology. 14. Insulin/diabetic management per Dr. Yousif. 15. Continue neuro checks. 16. Patient will need rehab at discharge. Dr. Medrano consulted. 17. Transfer orders placed to send patient back to [facility] care. More recommendations to follow. Time with Patient: Greater than 30
--- NOTE | 2017-12-19 14:31 | P.PN ---
Subjective Progress Note Date: 12/19/17 Objective - Vital Signs Vital signs: Vital Signs Temp 98 F 12/19/17 12:00 Pulse 61 12/19/17 14:00 Resp 17 12/19/17 14:00 BP 112/63 12/19/17 14:00 Pulse Ox 99 12/19/17 14:00 Intake & Output 12/18/17 12/19/17 12/19/17 18:59 06:59 18:59 Intake Total 2220 920 500.0 Output Total 1055 485 156 Balance 1165 435 344.0 Weight 87.8 kg 87.8 kg Intake: IV 615 845 500.0 0.9 NACL 140 20 D5w with KCl 20 Meq/l 1, 375 000 ml @ 75 mls/hr IV . [id number] [facility] Rx#:[id number] D5w with KCl 20 Meq/l 1, 675 000 ml @ 75 mls/hr IV . [id number] [facility] Rx#:[id number] Piperacillin-Tazobactam 3 100 50.0 .375 gm In Dextrose/Water 1 50ml.bag @ 12.5 mls/hr IVPB Q8HR [facility] Rx#: [id number] Sodium Chloride 0.9% 1, 150 450 000 ml @ 75 mls/hr IV . [id number] [facility] Rx#:[id number] Intake, IV Titration 1025 75 Amount Dextrose 5% in Water 1, 525 75 000 ml @ 75 mls/hr IV . [id number] ONE with Sod Bicarb Syr 8.4% (1 Meq/ml ) 3 ml Rx#:[id number] Heparin Sod,Pork in 0.45% 500 NaCl 25,000 unit In 0.45 % NaCl 1 500ml.bag @ 11.1 UNITS/KG/HR 20 mls/hr IV .Q24H [facility] Rx#:[id number] Oral 580 Output: Urine 1055 485 156 Other: Voiding Method Indwelling Catheter Indwelling Catheter Indwelling Catheter # Voids 1 # Bowel Movements 3 ABP, PAP, CO, CI - Last Documented Arterial Blood Pressure 122/59 Pulmonary Artery Pressure 4/4 Cardiac Output 4.5 Cardiac Index 2.5 - Exam Physical exam 72-year-old female sitting up in a chair arousable to verbal stimuli currently denying any abdominal pain when questioning Lungs diminished at the bases otherwise adequate air movement on room air Heart S1-S2 audible regular Abdomen soft no facial grimacing with palpitation to the abdominal wall tolerating a diet indwelling Almaguer catheter in place reports no nausea vomiting Extremities no edema noted - Labs CBC & Chem 7: 12/19/17 04:14 12/19/17 04:14 Labs: Abnormal Lab Results - Last 24 Hours (Table) 12/18/17 12/18/17 12/18/17 Range/Units 16:51 16:52 20:55 WBC (3.8-10.6) k/uL RBC (3.80-5.40) m/uL Hgb (11.4-16.0) gm/dL Hct (34.0-46.0) % RDW (11.5-15.5) % Neutrophils # (Manual) (1.3-7.7) k/uL Monocytes # (Manual) (0-1.0) k/uL Metamyelocytes # (Man) (0) k/uL APTT (22.0-30.0) sec Sodium (137-145) mmol/L Glucose (74-99) mg/dL POC Glucose (mg/dL) 320 H 170 H 111 H (75-99) mg/dL Calcium (8.4-10.2) mg/dL Alkaline Phosphatase (38-126) U/L Total Protein (6.3-8.2) g/dL Albumin (3.5-5.0) g/dL 12/19/17 12/19/17 12/19/17 Range/Units 02:47 04:14 04:14 WBC 21.4 H (3.8-10.6) k/uL RBC 2.94 L (3.80-5.40) m/uL Hgb 8.0 L (11.4-16.0) gm/dL Hct 24.9 L (34.0-46.0) % RDW 15.9 H (11.5-15.5) % Neutrophils # (Manual) 17.10 H (1.3-7.7) k/uL Monocytes # (Manual) 1.71 H (0-1.0) k/uL Metamyelocytes # (Man) 0.86 H (0) k/uL APTT (22.0-30.0) sec Sodium 133 L (137-145) mmol/L Glucose 133 H (74-99) mg/dL POC Glucose (mg/dL) 132 H (75-99) mg/dL Calcium 7.9 L (8.4-10.2) mg/dL Alkaline Phosphatase 208 H (38-126) U/L Total Protein 4.6 L (6.3-8.2) g/dL Albumin 2.5 L (3.5-5.0) g/dL 12/19/17 12/19/17 12/19/17 Range/Units 04:14 07:27 12:15 WBC (3.8-10.6) k/uL RBC (3.80-5.40) m/uL Hgb (11.4-16.0) gm/dL Hct (34.0-46.0) % RDW (11.5-15.5) % Neutrophils # (Manual) (1.3-7.7) k/uL Monocytes # (Manual) (0-1.0) k/uL Metamyelocytes # (Man) (0) k/uL APTT 49.0 H (22.0-30.0) sec Sodium (137-145) mmol/L Glucose (74-99) mg/dL POC Glucose (mg/dL) 141 H 153 H (75-99) mg/dL Calcium (8.4-10.2) mg/dL Alkaline Phosphatase (38-126) U/L Total Protein (6.3-8.2) g/dL Albumin (3.5-5.0) g/dL Microbiology - Last 24 Hours (Table) 12/15/17 14:15 Stool Culture - Final Stool 12/13/17 22:12 Blood Culture - Preliminary Blood No Growth after 120 hours Assessment and Plan Assessment: Impression Ischemic colitis resolving stool for C. diff negative Postop diarrhea 9 expected outcome Postop day 8 urgent quadruple coronary artery bypass grafting using left internal mammary Echocardiogram preserved LV function Plan Continue postop CVS care Advance diet as tolerated Increase activity per CVS Monitor frequency of loose stool Will follow with you with further recommendations as clinical course indicates Progress note dictated for Dr. tatum covering on behalf of Dr. Crum
--- NOTE | 2017-12-19 15:30 | P.PN ---
Subjective Progress Note Date: 12/19/17 This is 72-year-old female status post bypass surgery for left main disease. Patient has been having abdominal discomfort. She seemed to have colitis. She is having diarrhea. No complaints of any chest pain. He patient is maintaining sinus rhythm. Also having some problems with urination, urinary retention. From Cardec standpoint we'll continue current medical therapy 12/17/2017: The patient continues to be agitated. He still complains of back pain and leg pain. Computed tomography scan of the abdomen showed evidence of colitis. She is not having any diarrhea. Patient is being treated for UTI and colitis with antibiotics. Her echocardiogram showed preserved LV function without any significant valvular abnormalities. We'll continue with current management. Prognosis is guarded. 12/19/2017: Patient is feeling better today. She is in less pain. Her diarrhea is improved. Patient in the chair seemed to be cheerful. Remains in sinus rhythm. No arrhythmias are detected. Her bicarbonate is corrected. There is a possibility that patient may be moving to telemetry. Objective - Vital Signs Vital signs: Vital Signs Temp 98 F 12/19/17 12:00 Pulse 62 12/19/17 15:00 Resp 21 12/19/17 15:00 BP 110/56 12/19/17 15:00 Pulse Ox 98 12/19/17 15:00 Intake & Output 12/18/17 12/19/17 12/19/17 18:59 06:59 18:59 Intake Total 2220 920 575.0 Output Total 1055 485 186 Balance 1165 435 389.0 Weight 87.8 kg 87.8 kg Intake: IV 615 845 575.0 0.9 NACL 140 20 D5w with KCl 20 Meq/l 1, 375 000 ml @ 75 mls/hr IV . [id number] [facility] Rx#:[id number] D5w with KCl 20 Meq/l 1, 675 000 ml @ 75 mls/hr IV . [id number] [facility] Rx#:[id number] Piperacillin-Tazobactam 3 100 50.0 .375 gm In Dextrose/Water 1 50ml.bag @ 12.5 mls/hr IVPB Q8HR [facility] Rx#: [id number] Sodium Chloride 0.9% 1, 150 525 000 ml @ 75 mls/hr IV . [id number] [facility] Rx#:[id number] Intake, IV Titration 1025 75 Amount Dextrose 5% in Water 1, 525 75 000 ml @ 75 mls/hr IV . [id number] ONE with Sod Bicarb Syr 8.4% (1 Meq/ml ) 3 ml Rx#:[id number] Heparin Sod,Pork in 0.45% 500 NaCl 25,000 unit In 0.45 % NaCl 1 500ml.bag @ 11.1 UNITS/KG/HR 20 mls/hr IV .Q24H [facility] Rx#:[id number] Oral 580 Output: Urine 1055 485 186 Other: Voiding Method Indwelling Catheter Indwelling Catheter Indwelling Catheter # Voids 1 # Bowel Movements 3 ABP, PAP, CO, CI - Last Documented Arterial Blood Pressure 122/59 Pulmonary Artery Pressure 4/4 Cardiac Output 4.5 Cardiac Index 2.5 - Exam GENERAL EXAM: Patient is alert and oriented and in moderate distress HEENT: Normocephalic. Normal reaction of pupils, equal size, normal range of extraocular motion. No erythema or exudates in the throat. NECK: No masses, no nuchal rigidity. CHEST: No chest wall deformity. LUNGS: Diminished breath sounds HEART: S1 and S2 normal with no audible mumurs or gallops. Regular rhythm, femorals equal on both sides.. ABDOMEN: Distended SKIN: No rashes CENTRAL NERVOUS SYSTEM: No focal deficits. EXTREMITIES: No cyanosis, clubbing or edema. - Labs CBC & Chem 7: 12/19/17 04:14 12/19/17 04:14 Labs: Abnormal Lab Results - Last 24 Hours (Table) 12/18/17 12/18/17 12/18/17 Range/Units 16:51 16:52 20:55 WBC (3.8-10.6) k/uL RBC (3.80-5.40) m/uL Hgb (11.4-16.0) gm/dL Hct (34.0-46.0) % RDW (11.5-15.5) % Neutrophils # (Manual) (1.3-7.7) k/uL Monocytes # (Manual) (0-1.0) k/uL Metamyelocytes # (Man) (0) k/uL APTT (22.0-30.0) sec Sodium (137-145) mmol/L Glucose (74-99) mg/dL POC Glucose (mg/dL) 320 H 170 H 111 H (75-99) mg/dL Calcium (8.4-10.2) mg/dL Alkaline Phosphatase (38-126) U/L Total Protein (6.3-8.2) g/dL Albumin (3.5-5.0) g/dL 12/19/17 12/19/17 12/19/17 Range/Units 02:47 04:14 04:14 WBC 21.4 H (3.8-10.6) k/uL RBC 2.94 L (3.80-5.40) m/uL Hgb 8.0 L (11.4-16.0) gm/dL Hct 24.9 L (34.0-46.0) % RDW 15.9 H (11.5-15.5) % Neutrophils # (Manual) 17.10 H (1.3-7.7) k/uL Monocytes # (Manual) 1.71 H (0-1.0) k/uL Metamyelocytes # (Man) 0.86 H (0) k/uL APTT (22.0-30.0) sec Sodium 133 L (137-145) mmol/L Glucose 133 H (74-99) mg/dL POC Glucose (mg/dL) 132 H (75-99) mg/dL Calcium 7.9 L (8.4-10.2) mg/dL Alkaline Phosphatase 208 H (38-126) U/L Total Protein 4.6 L (6.3-8.2) g/dL Albumin 2.5 L (3.5-5.0) g/dL 12/19/17 12/19/17 12/19/17 Range/Units 04:14 07:27 12:15 WBC (3.8-10.6) k/uL RBC (3.80-5.40) m/uL Hgb (11.4-16.0) gm/dL Hct (34.0-46.0) % RDW (11.5-15.5) % Neutrophils # (Manual) (1.3-7.7) k/uL Monocytes # (Manual) (0-1.0) k/uL Metamyelocytes # (Man) (0) k/uL APTT 49.0 H (22.0-30.0) sec Sodium (137-145) mmol/L Glucose (74-99) mg/dL POC Glucose (mg/dL) 141 H 153 H (75-99) mg/dL Calcium (8.4-10.2) mg/dL Alkaline Phosphatase (38-126) U/L Total Protein (6.3-8.2) g/dL Albumin (3.5-5.0) g/dL Microbiology - Last 24 Hours (Table) 12/15/17 14:15 Stool Culture - Final Stool 12/13/17 22:12 Blood Culture - Preliminary Blood No Growth after 120 hours Assessment and Plan (1) Colitis Current Visit: Yes Status: Acute Code(s): K52.9 - NONINFECTIVE GASTROENTERITIS AND COLITIS, UNSPECIFIED SNOMED Code(s): 26388959 (2) Diarrhea in adult patient Current Visit: Yes Status: Acute Code(s): R19.7 - DIARRHEA, UNSPECIFIED SNOMED Code(s): 18453204 (3) Urinary tract infection Current Visit: Yes Status: Acute Code(s): N39.0 - URINARY TRACT INFECTION, SITE NOT SPECIFIED SNOMED Code(s): 56997918 (4) Coronary artery disease involving left main coronary artery Current Visit: Yes Status: Chronic Code(s): I25.10 - ATHSCL HEART DISEASE OF [place] CORONARY ARTERY W/O ANG PCTRS SNOMED Code(s): 693434593 (5) Depression Current Visit: Yes Status: Chronic Code(s): F32.9 - MAJOR DEPRESSIVE DISORDER, SINGLE EPISODE, UNSPECIFIED SNOMED Code(s): 88390174 Plan: Patient is essentially is being treated for colitis back pain and urinary tract infections. Cardiac-rudolph patient seems to be stable. Echo showed preserved LV function. 12/19/2017:. Patient seemed to be much better. Seemed to be in less pain. She is getting [place]. Diarrhea is improved. Vital signs remained stable. Continue current management. Possible transfer to telemetry unit
--- NOTE | 2017-12-19 15:35 | P.PN ---
Subjective Progress Note Date: 12/18/17 This is 72-year-old female status post bypass surgery for left main disease. Patient has been having abdominal discomfort. She seemed to have colitis. She is having diarrhea. No complaints of any chest pain. He patient is maintaining sinus rhythm. Also having some problems with urination, urinary retention. From Cardec standpoint we'll continue current medical therapy 12/17/2017: The patient continues to be agitated. He still complains of back pain and leg pain. Computed tomography scan of the abdomen showed evidence of colitis. She is not having any diarrhea. Patient is being treated for UTI and colitis with antibiotics. Her echocardiogram showed preserved LV function without any significant valvular abnormalities. We'll continue with current management. Prognosis is guarded. 12/18/2017: The patient is still complaining of abdominal pain and generalized body pain. Hemodynamically stable. Continues to have diarrhea. Blood pressure is stable. No arrhythmias are noted. Patient may need a better pain management. From Cardec standpoint we'll continue current medical therapy. 12/19/2017: Patient is feeling better today. She is in less pain. Her diarrhea is improved. Patient in the chair seemed to be cheerful. Remains in sinus rhythm. No arrhythmias are detected. Her bicarbonate is corrected. There is a possibility that patient may be moving to telemetry. Objective - Vital Signs Vital signs: Vital Signs Temp 98 F 12/19/17 12:00 Pulse 62 12/19/17 15:00 Resp 21 12/19/17 15:00 BP 110/56 12/19/17 15:00 Pulse Ox 98 12/19/17 15:00 Intake & Output 12/18/17 12/19/17 12/19/17 18:59 06:59 18:59 Intake Total 2220 920 575.0 Output Total 1055 485 186 Balance 1165 435 389.0 Weight 87.8 kg 87.8 kg Intake: IV 615 845 575.0 0.9 NACL 140 20 D5w with KCl 20 Meq/l 1, 375 000 ml @ 75 mls/hr IV . [id number] [facility] Rx#:[id number] D5w with KCl 20 Meq/l 1, 675 000 ml @ 75 mls/hr IV . [id number] [facility] Rx#:[id number] Piperacillin-Tazobactam 3 100 50.0 .375 gm In Dextrose/Water 1 50ml.bag @ 12.5 mls/hr IVPB Q8HR [facility] Rx#: [id number] Sodium Chloride 0.9% 1, 150 525 000 ml @ 75 mls/hr IV . [id number] [facility] Rx#:[id number] Intake, IV Titration 1025 75 Amount Dextrose 5% in Water 1, 525 75 000 ml @ 75 mls/hr IV . [id number] ONE with Sod Bicarb Syr 8.4% (1 Meq/ml ) 3 ml Rx#:[id number] Heparin Sod,Pork in 0.45% 500 NaCl 25,000 unit In 0.45 % NaCl 1 500ml.bag @ 11.1 UNITS/KG/HR 20 mls/hr IV .Q24H [facility] Rx#:[id number] Oral 580 Output: Urine 1055 485 186 Other: Voiding Method Indwelling Catheter Indwelling Catheter Indwelling Catheter # Voids 1 # Bowel Movements 3 ABP, PAP, CO, CI - Last Documented Arterial Blood Pressure 122/59 Pulmonary Artery Pressure 4/4 Cardiac Output 4.5 Cardiac Index 2.5 - Labs CBC & Chem 7: 12/19/17 04:14 12/19/17 04:14 Labs: Abnormal Lab Results - Last 24 Hours (Table) 12/18/17 12/18/17 12/18/17 Range/Units 16:51 16:52 20:55 WBC (3.8-10.6) k/uL RBC (3.80-5.40) m/uL Hgb (11.4-16.0) gm/dL Hct (34.0-46.0) % RDW (11.5-15.5) % Neutrophils # (Manual) (1.3-7.7) k/uL Monocytes # (Manual) (0-1.0) k/uL Metamyelocytes # (Man) (0) k/uL APTT (22.0-30.0) sec Sodium (137-145) mmol/L Glucose (74-99) mg/dL POC Glucose (mg/dL) 320 H 170 H 111 H (75-99) mg/dL Calcium (8.4-10.2) mg/dL Alkaline Phosphatase (38-126) U/L Total Protein (6.3-8.2) g/dL Albumin (3.5-5.0) g/dL 12/19/17 12/19/17 12/19/17 Range/Units 02:47 04:14 04:14 WBC 21.4 H (3.8-10.6) k/uL RBC 2.94 L (3.80-5.40) m/uL Hgb 8.0 L (11.4-16.0) gm/dL Hct 24.9 L (34.0-46.0) % RDW 15.9 H (11.5-15.5) % Neutrophils # (Manual) 17.10 H (1.3-7.7) k/uL Monocytes # (Manual) 1.71 H (0-1.0) k/uL Metamyelocytes # (Man) 0.86 H (0) k/uL APTT (22.0-30.0) sec Sodium 133 L (137-145) mmol/L Glucose 133 H (74-99) mg/dL POC Glucose (mg/dL) 132 H (75-99) mg/dL Calcium 7.9 L (8.4-10.2) mg/dL Alkaline Phosphatase 208 H (38-126) U/L Total Protein 4.6 L (6.3-8.2) g/dL Albumin 2.5 L (3.5-5.0) g/dL 12/19/17 12/19/17 12/19/17 Range/Units 04:14 07:27 12:15 WBC (3.8-10.6) k/uL RBC (3.80-5.40) m/uL Hgb (11.4-16.0) gm/dL Hct (34.0-46.0) % RDW (11.5-15.5) % Neutrophils # (Manual) (1.3-7.7) k/uL Monocytes # (Manual) (0-1.0) k/uL Metamyelocytes # (Man) (0) k/uL APTT 49.0 H (22.0-30.0) sec Sodium (137-145) mmol/L Glucose (74-99) mg/dL POC Glucose (mg/dL) 141 H 153 H (75-99) mg/dL Calcium (8.4-10.2) mg/dL Alkaline Phosphatase (38-126) U/L Total Protein (6.3-8.2) g/dL Albumin (3.5-5.0) g/dL Microbiology - Last 24 Hours (Table) 12/15/17 14:15 Stool Culture - Final Stool 12/13/17 22:12 Blood Culture - Preliminary Blood No Growth after 120 hours Assessment and Plan (1) Colitis Current Visit: Yes Status: Acute Code(s): K52.9 - NONINFECTIVE GASTROENTERITIS AND COLITIS, UNSPECIFIED SNOMED Code(s): 43934211 (2) Diarrhea in adult patient Current Visit: Yes Status: Acute Code(s): R19.7 - DIARRHEA, UNSPECIFIED SNOMED Code(s): 89074020 (3) Urinary tract infection Current Visit: Yes Status: Acute Code(s): N39.0 - URINARY TRACT INFECTION, SITE NOT SPECIFIED SNOMED Code(s): 82478897 (4) Coronary artery disease involving left main coronary artery Current Visit: Yes Status: Chronic Code(s): I25.10 - ATHSCL HEART DISEASE OF [place] CORONARY ARTERY W/O ANG PCTRS SNOMED Code(s): 404149687 (5) Depression Current Visit: Yes Status: Chronic Code(s): F32.9 - MAJOR DEPRESSIVE DISORDER, SINGLE EPISODE, UNSPECIFIED SNOMED Code(s): 68373514
[2017-12-19] MEDS: HEPARIN SODIUM,PORCINE 5,000 UNIT/ML 1 ML VIAL SQ SCH (16:41)
[2017-12-19 17:23] LABS: Glucose,Whole Blood 127 mg/dL (75-99)
--- NOTE | 2017-12-19 18:17 | PN ---
PROGRESS NOTE DATE OF SERVICE: 12/19/2017 This 72-year-old woman who was admitted with CAD, CABG is being closely monitored. No chest pain. No palpitations. No fever. Patient is much more alert at this time. PHYSICAL EXAM: Alert, oriented x3. Pulse 82, blood pressure 120/62, respiration 21, temperature normal, pulse ox 98% on room air. HEENT: Conjunctivae normal. Oral mucosa moist. NECK: No jugular venous distention. No carotid bruit. No lymph node enlargement. CARDIOVASCULAR: S1, S2. RESPIRATORY: Breath sounds diminished in the bases. A few scattered rhonchi. ABDOMEN: Soft, nontender. NERVOUS SYSTEM: No focal deficits. LABS: WBC 21.2, hemoglobin is 8, sodium 133, albumin 2.5. ASSESSMENT: 1. Coronary artery disease, CABG status post. 2. Atrial fibrillation. 3. Change in mental status, metabolic encephalopathy, possibly medication induced, improved. 4. Diarrhea possibly colitis. 5. Abdominal pain. 6. Increased WBC on empiric antibiotics. 7. Coronary artery disease. 8. History of diabetes type 2. 9. Increased LFTs. 10.Hypertension. 11.Hyperlipidemia. 12.History of degenerative joint disease. 13.History of hypothyroidism. 14.History allergic rhinitis. 15.History of nicotine dependence. 16.Increased WBC. 17.History of anxiety, depression. 18.Urinary tract infection with E coli, present on admission. 19.Urinary retention. RECOMMENDATIONS AND DISCUSSION: I recommend to continue current management, monitoring and symptomatic treatment. Closely follow with multiple consultants. Guarded prognosis. Further recommendations to follow. Hold off sedatives. MMODL / IJN: [id number] /
[2017-12-19] MEDS: MELATONIN 3 MG TABLET PO SCH (20:23)
[2017-12-19] MEDS: ACETAMINOPHEN TAB 500 MG TAB PO PRN (20:26)
[2017-12-19 21:01] LABS: Glucose,Whole Blood 141 mg/dL (75-99)
[2017-12-20] MEDS: KETOROLAC 30 MG/ML 1 ML VIAL IVP SCH ×2 (00:15→06:30)
[2017-12-20] MEDS: PIPERACILLIN-TAZOBACTAM 3.375 GM in DEXTROSE/WATER 1 50ML.BAG IVPB SCH ×3 (00:16→18:04)
[2017-12-20] MEDS: HEPARIN SODIUM,PORCINE 5,000 UNIT/ML 1 ML VIAL SQ SCH ×4 (00:16→19:50)
[2017-12-20 01:56] LABS: Glucose,Whole Blood 121 mg/dL (75-99)
[2017-12-20] MEDS: HYDROcodone/APAP 5-325MG 1 EACH TAB PO PRN (04:48)
[2017-12-20 05:27] LABS: Anisocytosis Slight; Hypochromasia Slight; MCHC 30.8 g/dL (31.0-37.0); MCV 87.6 fL (80.0-100.0); Mean Platelet Volume 6.9; Platelet Count 432 k/uL (150-450); RBC 2.97 m/uL (3.80-5.40); RDW 16.5 % (11.5-15.5); WBC 14.3 k/uL (3.8-10.6)
[2017-12-20 05:40] LABS: Albumin 2.4 g/dL (3.5-5.0); Calcium 7.8 mg/dL (8.4-10.2); Magnesium 1.9 mg/dL (1.6-2.3); Phosphorus 3.5 mg/dL (2.5-4.5); Potassium 3.6 mmol/L (3.5-5.1); Total Bilirubin 0.6 mg/dL (0.2-1.3); Total Protein 4.6 g/dL (6.3-8.2)
[2017-12-20] MEDS ORDERED: Potassium Replacement Protocol 1 EACH MISC MISCELLANE PRN ×2 (05:50→23:44)
[2017-12-20] MEDS ORDERED: POTASSIUM CHLORIDE ER 20 MEQ TAB.ER PO SCH (06:00)
[2017-12-20] MEDS: LEVOTHYROXINE 75 MCG TAB PO SCH (06:30)
--- NOTE | 2017-12-20 07:12 | XR ---
EXAMINATION TYPE: XR chest 2V DATE OF EXAM: 12/20/2017 COMPARISON: Prior chest 12/19/2017 HISTORY: Status post cardiac surgery TECHNIQUE: Frontal and lateral views of the chest are obtained. FINDINGS: There is blunting of bilateral costophrenic angles. Patient shows post median sternotomy c hange, atrial appendage clipping. Interstitium appears somewhat prominent. Heart is enlarged. No evid ent pneumothorax. There is free air beneath the hemidiaphragm on the right and within the midline. Pa tient is rotated. Arthropathy noted in the shoulders. There are overlying cardiac leads. IMPRESSION: Pneumoperitoneum. Bilateral pleural effusions, correlate for pulmonary venous hypertensio n and interstitial edema. Report relayed to Del in the intensive care unit at the time of interpr etation of the exam. A [place] critical message alert has been initiated for Stephie Vázquez via the [facility] al Results System on 12/20/2017 7:09 AM. This message alert has been sent to Stephie Vázquez via the prefe rences provided by the clinician for the receipt of Radiology Critical Findings. Message ID [id number].
[2017-12-20] MEDS: IOPAMIDOL-300 CONTRAST 30 ML VIAL (ORAL USE) PO PRN ×2 (07:29→09:10)
[2017-12-20 07:36] LABS: Glucose,Whole Blood 89 mg/dL (75-99)
[2017-12-20 08:28] LABS: Band Neutrophils % 7 %; Eosinophils # (M) 0.29 k/uL (0-0.7); Metamyelocytes # (M) 0.43 k/uL (0); Metamyelocytes % 3 %; Monocytes # (M) 0.72 k/uL (0-1.0); Myelocytes # (M) 0.43 k/uL (0); Myelocytes % 3 %; Neutrophils % (M) 75 %; Nucleated Red Blood Cells 0 /100 WBC (0-0); Total Cells Counted 200
[2017-12-20 08:37] LABS: Polychromasia Present; Toxic Granulation Present
[2017-12-20] MEDS: IPRATROPIUM-ALBUTEROL 3 ML NEB INHALATION SCH ×4 (08:44→19:55)
[2017-12-20] MEDS: INSULIN ASPART 100 UNIT/ML 1 ML 10 ML VIAL SQ SCH ×4 (09:12→22:34)
--- NOTE | 2017-12-20 10:21 | CT ---
EXAMINATION TYPE: CT abdomen pelvis wo con DATE OF EXAM: 12/20/2017 COMPARISON: 12/14/2017 HISTORY: Pain, diarrhea, free air CT DLP: 1152 mGycm Examination of the solid and hollow viscera is limited given the lack of contrast. FINDINGS: LUNG BASES: Basilar compressive atelectasis and bilateral pleural effusions left greater than right. Calcified granulomas and cardiomegaly. LIVER/GB: Cholecystectomy clips are in place. No space-occupying hepatic lesion. PANCREAS: No pancreatic mass identified. No inflammatory process seen. SPLEEN: No evidence for splenomegaly. No intrasplenic lesions seen. Linear granulomas. ADRENALS: No adrenal nodules identified. No evidence for thickening. KIDNEYS: No evidence for renal mass. No nephrolithiasis. No hydronephrosis. BOWEL: There is now evidence of moderate pneumoperitoneum. Site of perforation is difficult to elucid ate however there is irregularity of the distal stomach and duodenal region and this may reflect site of perforation. Adjacent colon also demonstrates irregular wall thickening. The remainder of the col on and small bowel appear to be within normal limits. Small amount of free fluid identified within th e pelvis. Lymph nodes: No evidence for adenopathy greater than 1 cm. Abdominal aorta: Atheromatous changes seen. No evidence for aneurysm. Genital organs: No significant abnormality. Other: No significant abnormality. IMPRESSION: 1. Moderate pneumoperitoneum with site of perforation difficult to elucidate and may reflect the dist al stomach/duodenum. There is also well wall irregularity of the adjacent transverse colon. Correlate clinically. 2. Bilateral pleural effusions have increased left greater than right. Basilar compressive atelectasi s.
--- NOTE | 2017-12-20 10:43 | P.PN ---
<Bobo Tinajero - Last Filed: 12/20/17 09:32> Subjective Progress Note Date: 12/20/17 Principal diagnosis: Coronary artery disease with critical left main disease. Preserved left ventricular function. Previous medical history of hypertension, hyperlipidemia , diabetes mellitus with preoperative hemoglobin A1c 8.1%, hypothyroid, chest granulomatous disease, peripheral vascular disease status post right fem-pop bypass, previous tobacco dependence with preoperative FEV1 109% of predicted in November 2016, recent fall in June 2017 with torn right rotator cuff, questionable DVT with previous Coumadin use greater than 2 years ago, syncopal episodes, history of paroxysmal atrial fibrillation, chronic low back pain, obesity, depression and preoperative E. coli urinary tract infection. POD #9 urgent quadruple coronary artery bypass grafting using the left internal mammary artery sequentially to the diagonal coronary artery and to the left anterior descending coronary artery, a reverse greater saphenous vein graft from the aorta to the first obtuse marginal coronary artery, a reverse greater saphenous vein graft from the aorta to the third obtuse marginal coronary artery. Bilateral pulmonary vein isolation using the AtriCure radiofrequency clamp. Exclusion of the left atrial appendage using a 35 mm AtriClip. Intraoperative transesophageal echocardiogram and epi-aortic scanning. Postoperative elevation in transaminases, an unexpected outcome, resolving. Leukocytosis, present preoperatively. Postoperative diarrhea, an unexpected outcome. Postoperative normochromic, normocytic anemia, an expected outcome of surgery secondary to cardiopulmonary bypass and hemodilution. Postoperative urinary retention, an unexpected outcome. Postoperative pneumoperitoneum, an unexpected outcome. Currently the patient is sitting up to the bedside chair. She is complaining of acute onset of sharp pain to her abdomen which started around 4 AM this morning. She denies any complaints of nausea or vomiting. She did report that she had a liquid green stool around the time that the pain came on. She remains afebrile. Her laboratory results show a WBC count of 14.3 which is down from 21.4, she does have a positive bandemia of 7. 0.9% normal saline remains infusing at 75 mL per hour. Her urine output has been marginal in the last 8 hours with 245 mL output. Her chest x-ray this morning is showing some pneumoperitoneum. Objective - Vital Signs Vital signs: Vital Signs Temp 98.0 F 12/20/17 00:00 Pulse 74 12/20/17 08:54 Resp 17 12/20/17 06:00 BP 140/74 12/20/17 05:00 Pulse Ox 98 12/20/17 06:00 Intake & Output 12/19/17 12/20/17 12/20/17 18:59 06:59 18:59 Intake Total 987.5 900 Output Total 315 340 Balance 672.5 560 Weight 87.8 kg 89.9 kg Intake: IV 987.5 900 Piperacillin-Tazobactam 3 87.5 .375 gm In Dextrose/Water 1 50ml.bag @ 12.5 mls/hr IVPB Q8HR [facility] Rx#: [id number] Sodium Chloride 0.9% 1, 900 900 000 ml @ 75 mls/hr IV . [id number] [facility] Rx#:[id number] Output: Urine 315 340 Other: Voiding Method Indwelling Catheter Indwelling Catheter # Voids 1 ABP, PAP, CO, CI - Last Documented Arterial Blood Pressure 122/59 Pulmonary Artery Pressure 4/4 Cardiac Output 4.5 Cardiac Index 2.5 - Constitutional General appearance: Present: cooperative, no acute distress, obese - Respiratory Details: Lungs sounds essentially clear throughout, diminished bilateral bases. Respirations are symmetrical and nonlabored. Oxygen saturation are 98% on room air. She is achieving 1000 mL to 1250 mL on her incentive spirometry. Surgical mammary support bra in place. - Cardiovascular Details: Regular rhythm and rate. S1 and S2 present, negative for S3, gallop or murmur. Sternum is stable. Bedside telemetry showing normal sinus rhythm heart rate 69. Heart hugger is in place and she is measuring appropriate use. Knee-high KURT hose and sequential compression devices in place to her bilateral lower extremities. No edema present. - Gastrointestinal Gastrointestinal Comment(s): Abdomen is soft, generalized tenderness with palpation, distended. Active bowel sounds all 4 bowel quadrants. One liquid green stool in the last 8 hours. Passing flatus. - Genitourinary Genitourinary Comment(s): Almaguer catheter for accurate I&O. Draining clear yellow urine. Marginal urine output with 245 mL output last 8 hours. - Integumentary Integumentary Comment(s): Skin is warm and dry. No clubbing or cyanosis present. Midline sternal incision clean dry and approximated. No drainage or redness present. Left lower extremity EVH site clean dry and approximated. No drainage or redness present. - Neurologic Neurologic: Present: CNII-XII intact - Musculoskeletal Musculoskeletal: Present: generalized weakness, strength equal bilaterally - Psychiatric Psychiatric: Present: A&O x's 3, appropriate affect, intact judgment & insight - Allied health notes Allied health notes reviewed: nursing - Labs CBC & Chem 7: 12/20/17 04:30 12/20/17 04:30 Labs: Abnormal Lab Results - Last 24 Hours (Table) 12/19/17 12/19/17 12/19/17 Range/Units 12:15 17:22 20:59 WBC (3.8-10.6) k/uL RBC (3.80-5.40) m/uL Hgb (11.4-16.0) gm/dL Hct (34.0-46.0) % MCHC (31.0-37.0) g/dL RDW (11.5-15.5) % Neutrophils # (Manual) (1.3-7.7) k/uL Metamyelocytes # (Man) (0) k/uL Myelocytes # (Manual) (0) k/uL Sodium (137-145) mmol/L Carbon Dioxide (22-30) mmol/L POC Glucose (mg/dL) 153 H 127 H 141 H (75-99) mg/dL Calcium (8.4-10.2) mg/dL Alkaline Phosphatase (38-126) U/L Total Protein (6.3-8.2) g/dL Albumin (3.5-5.0) g/dL 12/20/17 12/20/17 12/20/17 Range/Units 01:55 04:30 04:30 WBC 14.3 H (3.8-10.6) k/uL RBC 2.97 L (3.80-5.40) m/uL Hgb 8.0 L (11.4-16.0) gm/dL Hct 26.0 L (34.0-46.0) % MCHC 30.8 L (31.0-37.0) g/dL RDW 16.5 H (11.5-15.5) % Neutrophils # (Manual) 11.70 H (1.3-7.7) k/uL Metamyelocytes # (Man) 0.43 H (0) k/uL Myelocytes # (Manual) 0.43 H (0) k/uL Sodium 134 L (137-145) mmol/L Carbon Dioxide 21 L (22-30) mmol/L POC Glucose (mg/dL) 121 H (75-99) mg/dL Calcium 7.8 L (8.4-10.2) mg/dL Alkaline Phosphatase 181 H (38-126) U/L Total Protein 4.6 L (6.3-8.2) g/dL Albumin 2.4 L (3.5-5.0) g/dL Microbiology - Last 24 Hours (Table) 12/13/17 22:12 Blood Culture - Final Blood No Growth after 144 hours 12/15/17 14:15 Stool Culture - Final Stool - Imaging and Cardiology Chest x-ray: report reviewed, image reviewed Assessment and Plan (1) Diarrhea in adult patient Current Visit: Yes Status: Acute Code(s): R19.7 - DIARRHEA, UNSPECIFIED SNOMED Code(s): 43249476 (2) Chronic low back pain Current Visit: Yes Status: Chronic Code(s): M54.5 - LOW BACK PAIN; G89.29 - OTHER CHRONIC PAIN SNOMED Code(s): 576046357 (3) Coronary artery disease involving left main coronary artery Current Visit: Yes Status: Chronic Code(s): I25.10 - ATHSCL HEART DISEASE OF [place] CORONARY ARTERY W/O ANG PCTRS SNOMED Code(s): 853113213 (4) Diabetes Current Visit: Yes Status: Chronic Code(s): E11.9 - TYPE 2 DIABETES MELLITUS WITHOUT COMPLICATIONS SNOMED Code(s): 23174200 (5) Family history of heart disease Current Visit: Yes Status: Chronic Code(s): Z82.49 - FAMILY HX OF ISCHEM HEART DIS AND OTH DIS OF [facility] SNOMED Code(s): 307224468 (6) Hyperlipidemia Current Visit: Yes Status: Chronic Code(s): E78.5 - HYPERLIPIDEMIA, UNSPECIFIED SNOMED Code(s): 49498581 (7) Hypertension Current Visit: Yes Status: Chronic Code(s): I10 - ESSENTIAL (PRIMARY) HYPERTENSION SNOMED Code(s): 32707540 (8) Hypothyroid Current Visit: Yes Status: Chronic Code(s): E03.9 - HYPOTHYROIDISM, UNSPECIFIED SNOMED Code(s): 79788933 (9) Peripheral vascular disease Current Visit: Yes Status: Chronic Code(s): I73.9 - PERIPHERAL VASCULAR DISEASE, UNSPECIFIED SNOMED Code(s): 658040217 (10) History of DVT (deep vein thrombosis) Current Visit: No Status: Resolved Code(s): Z86.718 - PERSONAL HISTORY OF OTHER VENOUS THROMBOSIS AND EMBOLISM SNOMED Code(s): 459849939 (11) History of atrial fibrillation Current Visit: No Status: Resolved Code(s): Z86.79 - PERSONAL HISTORY OF OTHER DISEASES OF THE CIRCULATORY SYSTEM SNOMED Code(s): 802762556 (12) Tobacco dependence in remission Current Visit: No Status: Resolved Code(s): F17.201 - NICOTINE DEPENDENCE, UNSPECIFIED, IN REMISSION SNOMED Code(s): 442793750 Plan: 1. Continue low dose aspirin, statin, and beta sheree. Will increase her beta sheree as tolerated. 2. Encourage incentive spirometry use 10 times every hour. 3. She will be made nothing by mouth due to her finding of pneumoperitoneum on her chest x-ray. A computed tomography scan of her abdomen has been ordered by Dr. Montoya from general surgery. 4. Continue amiodarone for A. fib prophylaxis. Currently on amiodarone 200 mg by mouth twice a day. 5. Continue Dr. Bib Galindo from infectious disease following. C. difficile culture and stool cultures are negative. 6. Monitor daily labs, chest x-rays. 7. GI/DVT prophylaxis. 8. Pain control with current medication regimen. Minimize narcotic usage, utilize by mouth Tylenol and IV Toradol. 9. Bronchodilators management per pulmonology. 10. Insulin/diabetic management per Dr. Yousif. 11. Increase 0.9% normal saline to 125 mL per hour. 12. Keep Almaguer catheter in place for now due to urinary retention and accurate I&O. 13. We will send a stat lactic acid level and type and screen. 14. More recommendations to follow based on patient's clinical course. Time with Patient: Greater than 30 <Dami Amin - Last Filed: 12/20/17 14:56> Objective - Vital Signs Vital signs: Vital Signs Temp 98.1 F 12/20/17 09:02 Pulse 74 12/20/17 14:00 Resp 15 12/20/17 14:00 BP 130/63 12/20/17 14:00 Pulse Ox 94 L 12/20/17 14:00 Intake & Output 12/19/17 12/20/17 12/20/17 18:59 06:59 18:59 Intake Total 987.5 900 825 Output Total 315 340 490 Balance 672.5 560 335 Weight 87.8 kg 89.9 kg Intake: IV 987.5 900 825 Piperacillin-Tazobactam 3 87.5 50 .375 gm In Dextrose/Water 1 50ml.bag @ 12.5 mls/hr IVPB Q8HR [facility] Rx#: [id number] Sodium Chloride 0.9% 1, 900 900 775 000 ml @ 125 mls/hr IV . Q8H [facility] Rx#:[id number] Output: Urine 315 340 290 Stool 200 Other: Voiding Method Indwelling Catheter Indwelling Catheter Indwelling Catheter # Voids 1 1 ABP, PAP, CO, CI - Last Documented Arterial Blood Pressure 122/59 Pulmonary Artery Pressure 4/4 Cardiac Output 4.5 Cardiac Index 2.5 - Labs CBC & Chem 7: 12/20/17 04:30 12/20/17 04:30 Labs: Abnormal Lab Results - Last 24 Hours (Table) 12/19/17 12/19/17 12/20/17 Range/Units 17:22 20:59 01:55 WBC (3.8-10.6) k/uL RBC (3.80-5.40) m/uL Hgb (11.4-16.0) gm/dL Hct (34.0-46.0) % MCHC (31.0-37.0) g/dL RDW (11.5-15.5) % Neutrophils # (Manual) (1.3-7.7) k/uL Metamyelocytes # (Man) (0) k/uL Myelocytes # (Manual) (0) k/uL Sodium (137-145) mmol/L Carbon Dioxide (22-30) mmol/L POC Glucose (mg/dL) 127 H 141 H 121 H (75-99) mg/dL Calcium (8.4-10.2) mg/dL Alkaline Phosphatase (38-126) U/L Total Protein (6.3-8.2) g/dL Albumin (3.5-5.0) g/dL 12/20/17 12/20/17 Range/Units 04:30 04:30 WBC 14.3 H (3.8-10.6) k/uL RBC 2.97 L (3.80-5.40) m/uL Hgb 8.0 L (11.4-16.0) gm/dL Hct 26.0 L (34.0-46.0) % MCHC 30.8 L (31.0-37.0) g/dL RDW 16.5 H (11.5-15.5) % Neutrophils # (Manual) 11.70 H (1.3-7.7) k/uL Metamyelocytes # (Man) 0.43 H (0) k/uL Myelocytes # (Manual) 0.43 H (0) k/uL Sodium 134 L (137-145) mmol/L Carbon Dioxide 21 L (22-30) mmol/L POC Glucose (mg/dL) (75-99) mg/dL Calcium 7.8 L (8.4-10.2) mg/dL Alkaline Phosphatase 181 H (38-126) U/L Total Protein 4.6 L (6.3-8.2) g/dL Albumin 2.4 L (3.5-5.0) g/dL Microbiology - Last 24 Hours (Table) 12/13/17 22:12 Blood Culture - Final Blood No Growth after 144 hours Assessment and Plan Plan: Patient with new free air and peritonitis on exam. Remains stable hemodynamically but will require emergent laparatomy. Gen surgery consulting and will take patient to OR imminently .
[2017-12-20] MEDS ORDERED: HYDROmorphone 1 MG/ML 1 ML SYRINGE ONE (11:02)
[2017-12-20] MEDS: PANTOPRAZOLE 40 MG TABLET PO SCH (11:09)
[2017-12-20] MEDS: AMIODARONE 200 MG TAB PO SCH ×2 (11:10→22:34)
[2017-12-20] MEDS: ASPIRIN 81 MG PO SCH (11:10)
[2017-12-20] MEDS: SODIUM CHLORIDE 0.9% 1,000 ML IV SCH ×2 (11:10→21:55)
[2017-12-20] MEDS: CYANOCOBALAMIN 500 MCG TAB PO SCH (11:11)
[2017-12-20] MEDS: METOPROLOL TARTRATE 50 MG TAB PO SCH ×2 (11:11→22:47)
[2017-12-20] MEDS: DULoxetine HCL 60 MG CAPSULE.DR PO SCH (11:11)
[2017-12-20] MEDS: ASCORBIC ACID 500 MG TAB PO SCH (11:11)
[2017-12-20] MEDS: CLOPIDOGREL 75 MG TAB PO SCH (11:11)
[2017-12-20] MEDS: ATORVASTATIN 40 MG TAB PO SCH (11:11)
[2017-12-20] MEDS: FERROUS SULFATE 325 MG TAB PO SCH (11:12)
--- NOTE | 2017-12-20 13:22 | P.PN ---
Progress Note - Text Progress Note Date: 12/20/17 The patient awoke at 4 AM with significant abdominal pain. Plain films revealed free air. Computed tomography scan he has performed which showed a moderate amount of free air. On exam her vital signs appear stable. Her abdomen is soft. There is marked tenderness throughout. Perforated viscus. Patient will undergo exploratory laparotomy today.
[2017-12-20] MEDS: HYDROmorphone 1 MG/ML 1 ML SYRINGE IVP PRN ×2 (13:50→19:48)
--- NOTE | 2017-12-20 15:03 | PN ---
PROGRESS NOTE DATE OF SERVICE: 12/20/2017 This 72-year-old woman was admitted with CAD, CABG also multiple medical issues. The patient also had atrial fibrillation. This morning the patient had abdominal pain and abdomen and pelvis CAT scan was done which showed evidence of moderate pneumoperitoneum suggestive of bowel perforation. Site of perforation is difficult to elucidate stomach and duodenal region was also noted. The colon also had some irregular thickening also. Dr. Montoya is planning exploratory laparotomy. The patient is closely monitored at this time. PAST MEDICAL HISTORY: Reviewed. REVIEW OF SYSTEMS: CARDIOVASCULAR: As mentioned. RESPIRATORY: As mentioned earlier. GI: As mentioned earlier. : No dysuria. NERVOUS SYSTEM: No numbness or weakness. CURRENT MEDICATIONS: Reviewed and include: 1. Tylenol 500 mg q.6h p.r.n. 2. Krum 5 mg p.r.n. 3. DuoNeb q.i.d. and p.r.n. 4. Cordarone 200 mg b.i.d. 5. Vitamin C 500 mg daily. 6. Aspirin 81 mg. 7. Lipitor. 8. Plavix 75 mg. 9. Vitamin B12 500 mcg p.o. daily. 10.Cymbalta. 11.Heparin. 12.Dilaudid. 13.Synthroid. 14.Melatonin. 15.Lopressor. 16.Replacement protocol. 17.Narcan. 18.Zofran. 19.Protonix. 20.Zosyn 3.375 IV q.8h. PHYSICAL EXAM: Patient is alert, oriented x3. Pulse 76, blood pressure 120/59, respiration 20, temperature 98.1, pulse ox 98% on room air. HEENT: Conjunctivae normal. Oral mucosa moist. NECK: No jugular venous distention. No carotid bruit. No lymph node enlargement. CARDIOVASCULAR: S1, S2. RESPIRATORY: Breath sounds diminished in the bases. A few scattered rhonchi and crackles. ABDOMEN: Soft. Mild diffuse distention. Mild diffuse tenderness present. No guarding. No rigidity. LEGS: No edema, no swelling. NERVOUS SYSTEM: Diffusely weak. LABS: WBC 14.3, hemoglobin is 8, sodium 134, potassium 3.6, and albumin is 2.4. ASSESSMENT: 1. Coronary artery disease, status post CABG. 2. Possible abdominal perforation and pneumoperitoneum. 3. Discussed perforation and peritoneum for exploration. 4. Atrial fibrillation. 5. Change in mental status, metabolic encephalopathy, possibly medication induced, improved. 6. Diarrhea possibly colitis. 7. Abdominal pain. 8. Increased WBC on empiric antibiotics. 9. Coronary artery disease. 10.History diabetes type 2. 11.Increased LFTs. 12.Hypertension. 13.Hyperlipidemia. 14.History of degenerative joint disease. 15.Hypothyroidism. 16.Allergic rhinitis. 17.History of nicotine dependence. 18.Increased WBC. 19.Anxiety, depression. 20.Urinary tract infection with E coli, present on admission. 21.Urinary retention. RECOMMENDATIONS AND DISCUSSION: I recommend to continue current management and symptomatic treatment. Continue the broad-spectrum IV antibiotics. Otherwise at this time I recommend to continue with exploration. Continue with the bronchodilators and the rest of the medications. Closely follow with Surgery. Further recommendations to follow. MMODL / IJN: [id number] / MTDD
--- NOTE | 2017-12-20 15:18 | P.PN ---
Subjective Progress Note Date: 12/20/17 On today's evaluation of a 12/18/2017 Carolyn is back to the intensive care unit. She is postop day #7 following her coronary artery bypass surgery. She got transferred because of an extensive liquidy/watery diarrhea which left her into a dehydrated state and causes some non-anion gap metabolic acidosis. Her bicarb level is down to 14. She had 3 additional liquidy bowel movements this morning. The patient was seen by general surgery. CAT scan of the abdomen was done raising the possibility of an underlying ischemic colitis. She was placed on accommodation Zosyn and vancomycin. No fever or chills. She also had gone into atrial fibrillation. The rate is controlled right now with metoprolol and amiodarone and the patient is also on IV heparin. She is complaining of pain throughout her chest and body mainly in the joints and she has been taken hydrocodone outpatient basis. I restarted her on Salvo 5 every 6 hours for pain control pH is using incentive spirometer. She is on IV fluids and she'll be started on a bicarb drip. The patient's chest x-ray from today showed small bilateral pleural effusion and basilar atelectasis and left lung base. There is also artifact from external objects on the chest x-ray. The postoperative echocardiogram showed a preserved LV function with an ejection fraction of 50-55 %. No valvular abnormalities noted. On today's evaluation of 12/19/2017, the patient is awake and alert and sitting up on a chair. The diarrhea has subsided significantly. She only had liquidy loose bowel movement there was small amount this morning. Otherwise, the patient is was resuscitated IV fluids. The patient received a bicarb infusion yesterday and her serum bicarb normalizes and earlier this morning associated to a normal saline infusion at the rate of 75 mL an hour. Her urine output is around 20-25 mL an hour. The patient's creatinine is normal. BUN is down to 7. Vascular electrodes are all within normal limits and her bicarb level is normalized. No nausea. No vomiting. No abdominal pain. She is taking clear liquid diet. No chest pain. Chest x-ray shows some mild pulmonary vascular congestion and atelectatic changes in lung bases bilaterally. She is on room air oxygen. Sternum stable clean and intact. She has E. coli in the urine and she is on IV Zosyn. Vancomycin was discontinued. IV heparin was discontinued. Her current rhythm is sinus. On 12/20/2017 the patient developed some vague abdominal pain. This pain started approximately 4 AM in the morning. As mentioned earlier the patient is postop from coronary artery bypass surgery and she is postop day #8. The patient is currently in the intensive care unit. X-ray of the chest was done this morning and it showed free air under the diaphragm. This is consistent with pneumoperitoneum and the patient will need further investigation. Immediately the general surgeon was contacted and the patient had a CAT scan of the abdomen and it showed moderate pneumoperitoneum with site of the perforation i not identified although there was suspicion that maybe the distal stomach/duodenal area. The patient currently on IV Zosyn. No cervical leukocytosis. Urine output is dropped down to 20 mL an hour. Her white count from this morning's at 14.3. Patient be taken to the operating room for an expected laparotomy. No altered mentation. No cough or sputum production. No other complaints otherwise for now. Objective - Vital Signs Vital signs: Vital Signs Temp 98.1 F 12/20/17 09:02 Pulse 73 12/20/17 11:00 Resp 33 H 12/20/17 11:00 BP 96/60 12/20/17 11:00 Pulse Ox 96 12/20/17 11:00 Intake & Output 12/19/17 12/20/17 12/20/17 18:59 06:59 18:59 Intake Total 987.5 900 450 Output Total 315 340 270 Balance 672.5 560 180 Weight 87.8 kg 89.9 kg Intake: IV 987.5 900 450 Piperacillin-Tazobactam 3 87.5 50 .375 gm In Dextrose/Water 1 50ml.bag @ 12.5 mls/hr IVPB Q8HR [facility] Rx#: [id number] Sodium Chloride 0.9% 1, 900 900 400 000 ml @ 125 mls/hr IV . Q8H [facility] Rx#:[id number] Output: Urine 315 340 170 Stool 100 Other: Voiding Method Indwelling Catheter Indwelling Catheter Indwelling Catheter # Voids 1 1 ABP, PAP, CO, CI - Last Documented Arterial Blood Pressure 122/59 Pulmonary Artery Pressure 4/4 Cardiac Output 4.5 Cardiac Index 2.5 - Exam No acute distress, oriented 3. No need for supplemental oxygen. She is able to stop on a chair. HEENT examination is grossly unremarkable. Mucous membranes are moist. No oral lesions. Neck supple. Full range of motion. No adenopathy thyromegaly or neck vein distention. Cardiovascular examination reveals irregular rhythm rate. S1-S2 normal. No S3 or S4. No discernible murmur noted. Heart sounds are distant. Sternum stable clean and intact and there is no evidence of any wound infection with dehiscence Lungs reveal mostly clear breath sounds. A few scattered rhonchi are noted. Breath sounds are equal bilaterally and there is reasonable air exchange. Abdomen mild diffuse abdominal tenderness, hypoactive bowel sounds, no rebound tenderness or guarding at this point in time. Extremities are intact. No cyanosis clubbing or edema. Skin Examination of the skin revealed no evidence of significant rashes, suspicious appearing nevi or other concerning lesions. Neurologic examination is brief but nonfocal. - Labs CBC & Chem 7: 12/20/17 04:30 12/20/17 04:30 Labs: Abnormal Lab Results - Last 24 Hours (Table) 12/19/17 12/19/17 12/20/17 Range/Units 17:22 20:59 01:55 WBC (3.8-10.6) k/uL RBC (3.80-5.40) m/uL Hgb (11.4-16.0) gm/dL Hct (34.0-46.0) % MCHC (31.0-37.0) g/dL RDW (11.5-15.5) % Neutrophils # (Manual) (1.3-7.7) k/uL Metamyelocytes # (Man) (0) k/uL Myelocytes # (Manual) (0) k/uL Sodium (137-145) mmol/L Carbon Dioxide (22-30) mmol/L POC Glucose (mg/dL) 127 H 141 H 121 H (75-99) mg/dL Calcium (8.4-10.2) mg/dL Alkaline Phosphatase (38-126) U/L Total Protein (6.3-8.2) g/dL Albumin (3.5-5.0) g/dL 12/20/17 12/20/17 Range/Units 04:30 04:30 WBC 14.3 H (3.8-10.6) k/uL RBC 2.97 L (3.80-5.40) m/uL Hgb 8.0 L (11.4-16.0) gm/dL Hct 26.0 L (34.0-46.0) % MCHC 30.8 L (31.0-37.0) g/dL RDW 16.5 H (11.5-15.5) % Neutrophils # (Manual) 11.70 H (1.3-7.7) k/uL Metamyelocytes # (Man) 0.43 H (0) k/uL Myelocytes # (Manual) 0.43 H (0) k/uL Sodium 134 L (137-145) mmol/L Carbon Dioxide 21 L (22-30) mmol/L POC Glucose (mg/dL) (75-99) mg/dL Calcium 7.8 L (8.4-10.2) mg/dL Alkaline Phosphatase 181 H (38-126) U/L Total Protein 4.6 L (6.3-8.2) g/dL Albumin 2.4 L (3.5-5.0) g/dL Microbiology - Last 24 Hours (Table) 12/13/17 22:12 Blood Culture - Final Blood No Growth after 144 hours Assessment and Plan Plan: #1. Multivessel coronary artery disease, involving left main coronary artery. And is awaiting coronary artery bypass grafting and surgery was done 12/11/2017 18 and the patient is postop day #9 #2. Acute diarrhea, suspecting an underlying component of ischemic colitis. The diarrhea has subsided yet the patient developed an acute pneumoperitoneum suspecting a gastric/duodenal perforation. The patient will be undergoing an extensive laparotomy by general surgery. Currently the patient nothing by mouth. The patient is currently on IV Zosyn. Hemodynamically stable. White cell count is at 14. Lactic acid 1.4. #3. Acute pneumoperitoneum, possibly secondary to gastric/duodenal perforation #4. Diabetes mellitus 2 #5. Atrial fibrillation, and expected outcome of surgery and the patient is currently well-controlled sinus rhythm,on a combination of amiodarone, metoprolol and IV heparin was discontinued. #6. Peripheral vascular disease #7. History of nicotine dependence, currently in remission, quit 10 years ago, carries [id number] smoking history #8. Hypothyroidism #9. Paroxysmal atrial fibrillation, currently in sinus rhythm #10. Chronic low back pain #11. Depression #12 obesity with a BMI of 34.3 #13 leukocytosis #14 anemia and expected outcome of surgery, normocytic #15 hyperlipidemia Plan Keep the patient nothing by mouth. Expected to laparotomy today. IV Zosyn. General surgeries on the case. Continue DuoNeb nebulized treatments around the clock. Incentive spirometer. We will bring the patient to the intensive care following her abdominal surgery and further recommendations are to follow accordingly.
[2017-12-20] MEDS ORDERED: CLINDAMYCIN 150 MG/ML 4 ML VIAL ONE (16:24)
[2017-12-20] MEDS ORDERED: ROCURONIUM BROMIDE 10 MG/ML 10 ML VIAL IV ONE (16:24)
[2017-12-20] MEDS ORDERED: PROPOFOL 10 MG/ML 20 ML VIAL IV ONE (16:24)
[2017-12-20] MEDS ORDERED: HEPARIN SODIUM,PORCINE 5,000 UNIT/ML 1 ML VIAL ONE (16:24)
[2017-12-20] MEDS ORDERED: PHENYLEPHRINE-0.9% NACL SYG 1 MG/10 ML SYRINGE ONE (16:24)
[2017-12-20] MEDS ORDERED: LIDOCAINE 1% INJ 10MG/ML (20 ML MDV) ONE (16:24)
[2017-12-20] MEDS ORDERED: MIDAZOLAM 2 MG/2 ML VIAL ONE (16:24)
[2017-12-20] MEDS ORDERED: SUCCINYLCHOLINE CHLORIDE 100 MG/5 ML SYR IV ONE (16:24)
[2017-12-20] MEDS ORDERED: fentaNYL (PF) 50 MCG/ML 2 ML AMP ONE (16:24)
[2017-12-20] MEDS ORDERED: IV FLUID CONTINUATION 1,000 ML IV ONE (16:24)
[2017-12-20 16:44] LABS: Glucose,Whole Blood 87 mg/dL (75-99)
[2017-12-20] MEDS ORDERED: LACTATED RINGERS 1,000 ML IV ONE ×2 (17:17→18:25)
--- NOTE | 2017-12-20 18:24 | P.PN ---
Subjective Progress Note Date: 12/20/17 This is 72-year-old female status post bypass surgery for left main disease. Patient has been having abdominal discomfort. She seemed to have colitis. She is having diarrhea. No complaints of any chest pain. He patient is maintaining sinus rhythm. Also having some problems with urination, urinary retention. From [facility] standpoint we'll continue current medical therapy 12/17/2017: The patient continues to be agitated. He still complains of back pain and leg pain. Computed tomography scan of the abdomen showed evidence of colitis. She is not having any diarrhea. Patient is being treated for UTI and colitis with antibiotics. Her echocardiogram showed preserved LV function without any significant valvular abnormalities. We'll continue with current management. Prognosis is guarded. 12/18/2017: The patient is still complaining of abdominal pain and generalized body pain. Hemodynamically stable. Continues to have diarrhea. Blood pressure is stable. No arrhythmias are noted. Patient may need a better pain management. From [facility] standpoint we'll continue current medical therapy. 12/19/2017: Patient is feeling better today. She is in less pain. Her diarrhea is improved. Patient in the chair seemed to be cheerful. Remains in sinus rhythm. No arrhythmias are detected. Her bicarbonate is corrected. There is a possibility that patient may be moving to telemetry. 12/20/2017: This patient apparently developed abdominal pain last night. Chest x-ray this morning showed evidence of pneumoperitoneum. Subsequent CAT scan also showed moderate pneumoperitoneum. It was felt was secondary to a ruptured viscus probably duodenum. Patient doesn't have any other complaints. Appear to be in sinus rhythm. Patient is taken to the operating room by the surgeon for exploratory laparotomy. Objective - Vital Signs Vital signs: Vital Signs Temp 98.1 F 12/20/17 09:02 Pulse 77 12/20/17 16:00 Resp 20 12/20/17 16:00 BP 113/61 12/20/17 16:00 Pulse Ox 96 12/20/17 16:00 Intake & Output 12/19/17 12/20/17 12/20/17 18:59 06:59 18:59 Intake Total 987.5 900 1500 Output Total 315 340 610 Balance 672.5 560 890 Weight 87.8 kg 89.9 kg Intake: IV 987.5 900 1500 Piperacillin-Tazobactam 3 87.5 50 .375 gm In Dextrose/Water 1 50ml.bag @ 12.5 mls/hr IVPB Q8HR [facility] Rx#: [id number] Sodium Chloride 0.9% 1, 900 900 900 000 ml @ 125 mls/hr IV . Q8H [facility] Rx#:[id number] Output: Urine 315 340 410 Stool 200 Other: Voiding Method Indwelling Catheter Indwelling Catheter Indwelling Catheter # Voids 1 1 ABP, PAP, CO, CI - Last Documented Arterial Blood Pressure 122/59 Pulmonary Artery Pressure 4/4 Cardiac Output 4.5 Cardiac Index 2.5 - Exam Physical exam. Not available. Patient was in the Skin and subsequently taken to the operating room - Labs CBC & Chem 7: 12/20/17 04:30 12/20/17 04:30 Labs: Abnormal Lab Results - Last 24 Hours (Table) 12/19/17 12/20/17 12/20/17 Range/Units 20:59 01:55 04:30 WBC 14.3 H (3.8-10.6) k/uL RBC 2.97 L (3.80-5.40) m/uL Hgb 8.0 L (11.4-16.0) gm/dL Hct 26.0 L (34.0-46.0) % MCHC 30.8 L (31.0-37.0) g/dL RDW 16.5 H (11.5-15.5) % Neutrophils # (Manual) 11.70 H (1.3-7.7) k/uL Metamyelocytes # (Man) 0.43 H (0) k/uL Myelocytes # (Manual) 0.43 H (0) k/uL Sodium (137-145) mmol/L Carbon Dioxide (22-30) mmol/L POC Glucose (mg/dL) 141 H 121 H (75-99) mg/dL Calcium (8.4-10.2) mg/dL Alkaline Phosphatase (38-126) U/L Total Protein (6.3-8.2) g/dL Albumin (3.5-5.0) g/dL 12/20/17 Range/Units 04:30 WBC (3.8-10.6) k/uL RBC (3.80-5.40) m/uL Hgb (11.4-16.0) gm/dL Hct (34.0-46.0) % MCHC (31.0-37.0) g/dL RDW (11.5-15.5) % Neutrophils # (Manual) (1.3-7.7) k/uL Metamyelocytes # (Man) (0) k/uL Myelocytes # (Manual) (0) k/uL Sodium 134 L (137-145) mmol/L Carbon Dioxide 21 L (22-30) mmol/L POC Glucose (mg/dL) (75-99) mg/dL Calcium 7.8 L (8.4-10.2) mg/dL Alkaline Phosphatase 181 H (38-126) U/L Total Protein 4.6 L (6.3-8.2) g/dL Albumin 2.4 L (3.5-5.0) g/dL Microbiology - Last 24 Hours (Table) 12/13/17 22:12 Blood Culture - Final Blood No Growth after 144 hours Assessment and Plan (1) Colitis Current Visit: Yes Status: Acute Code(s): K52.9 - NONINFECTIVE GASTROENTERITIS AND COLITIS, UNSPECIFIED SNOMED Code(s): 74045913 (2) Diarrhea in adult patient Current Visit: Yes Status: Acute Code(s): R19.7 - DIARRHEA, UNSPECIFIED SNOMED Code(s): 90335054 (3) Urinary tract infection Current Visit: Yes Status: Acute Code(s): N39.0 - URINARY TRACT INFECTION, SITE NOT SPECIFIED SNOMED Code(s): 31463563 (4) Coronary artery disease involving left main coronary artery Current Visit: Yes Status: Chronic Code(s): I25.10 - ATHSCL HEART DISEASE OF [place] CORONARY ARTERY W/O ANG PCTRS SNOMED Code(s): 509098895 (5) Depression Current Visit: Yes Status: Chronic Code(s): F32.9 - MAJOR DEPRESSIVE DISORDER, SINGLE EPISODE, UNSPECIFIED SNOMED Code(s): 77740651 (6) Pneumoperitoneum Current Visit: Yes Status: Acute Code(s): K66.8 - OTHER SPECIFIED DISORDERS OF PERITONEUM SNOMED Code(s): 98785329 Plan: Patient is essentially is being treated for colitis back pain and urinary tract infections. Cardiac-rudolph patient seems to be stable. Echo showed preserved LV function. 12/19/2017:. Patient seemed to be much better. Seemed to be in less pain. She is getting [place]. Diarrhea is improved. Vital signs remained stable. Continue current management. Possible transfer to telemetry unit. 12/20/2017: This patient developed abdominal pain and pneumoperitoneum. It is felt to be secondary to ruptured viscus. Patient is taken to operating room by general surgeon. Patient otherwise cardiac-rudolph stable. We'll continue to follow
[2017-12-20 18:25] LABS: Anisocytosis Slight; HGB 7.5 gm/dL (11.4-16.0); Hypochromasia Slight; MCH 26.8 pg (25.0-35.0); MCHC 31.1 g/dL (31.0-37.0); MCV 86.1 fL (80.0-100.0); Mean Platelet Volume 7.3; Platelet Count 464 k/uL (150-450); RBC 2.79 m/uL (3.80-5.40); RDW 16.6 % (11.5-15.5)
--- NOTE | 2017-12-20 18:32 | P.OP ---
Date of Procedure: 12/20/17 Preoperative Diagnosis: Perforated viscus Postoperative Diagnosis: Necrosis of transverse colon, right colon Procedure(s) Performed: Right colectomy, transverse colectomy, takedown splenic flexure, ileostomy Anesthesia: SHARON Surgeon: Christopher Montoya Estimated Blood Loss (ml): 100 Pathology: other (Right transverse and proximal descending colon) Condition: critical Disposition: ICU Description of Procedure: The patient's placed on the operative table in the supine position. She received general anesthesia. Her abdomen was prepped and draped usual fashion. Her sternotomy dressing was removed. The abdomen was entered through midline incision. Upon entering the abdomen there was a murdock of air. The Bookwalter retractors placed in the wound. The abdomen was explored. There was obvious necrosis of the entire transverse colon. The necrosis started at the hepatic flexure and the ischemia extended beyond the splenic flexure. There was also a perforation of the right colon. At this point decided to perform a colectomy. The white line of Toldt was mobilized. The right colon was dissected medially. The splenic flexure was taken down using the Enseal device. During manipulation: The necrotic portion of the colon had a perforation. The terminal ileum was transected with a GI stapler. The proximal descending colon was transected with a GI stapler. Using LigaSure device the mesentery of the colon was divided. The omentum was divided with the transverse colon. The specimen sent to pathology. The abdomen was irrigated with 6 L of normal saline. A suitable spot for the ileostomy was brought up in the right lower quadrant. The fascia was closed with looped #1 PDS suture. 2 sutures were used to close the fascia. The skin was closed in the middle of the incision. The superior and inferior portions of the wound were packed with wet-to-dry dressing. The ileostomy was then matured using 3-0 Vicryl suture. The patient was left intubated. Anesthesia had placed a a line and central line. The patient was sent back to the ICU in critical condition.
[2017-12-20] MEDS ORDERED: SODIUM CHLORIDE 0.9% 1,000 ML IV ONE ×2 (19:19→21:20)
[2017-12-20 19:39] LABS: ABG Base Excess -6.7 mmol/L; ABG HCO3 20 mmol/L (21-25); ABG Oxygen Saturation 99.7 % (94-97); ABG PCO2 40 mmHg (35-45); ABG PO2 233 mmHg (83-108); ABG TCO2 21 mmol/L (19-24)
[2017-12-20] MEDS ORDERED: ALBUMIN HUMAN 25% 50 ML in EMPTY BAG 1 BAG IVPB ONE (20:00)
--- NOTE | 2017-12-20 20:09 | XR ---
EXAMINATION: XR chest 1V - AP portable supine chest x-ray DATE AND TIME: 12/20/2017 7:38 PM CLINICAL INDICATION: intubation TECHNIQUE: AP portable supine chest x-ray COMPARISON: 12/20/2017 at 6:46 AM FINDINGS: Since prior study the patient has been intubated. ET tube tip is superimposed over the proximal right mainstem bronchus and may be better placed if retracted 6 cm. Since prior study and NG tube is in place which is superimposed over the expected course of the thora cic esophagus and and the stomach. Also since the prior study a right side change catheter has been placed with its tip superimposed ove r the right atrium. There is a large left pleural effusion with airlessness throughout the lingula and left lower lobe an d half of the left upper lobe. The right lung appears clear and well expanded. The right pleural space appears negative. Cardiac silhouette appears mildly enlarged, unchanged. No definite acute bone or soft tissue findings. IMPRESSION: 1. INTUBATION OF THE RIGHT MAINSTEM BRONCHUS. 2. LARGE LEFT PLEURAL EFFUSION AND PROMINENT VOLUME OF AIRLESSNESS THROUGHOUT THE LEFT LUNG KATERINA MANUEL. Results being called to the patient's nurse at this time.
[2017-12-20] MEDS: PROPOFOL 1,000 MG in EMPTY BAG 1 BAG IV SCH (20:15)
[2017-12-20] MEDS ORDERED: ALBUMIN HUMAN 5% 250 ML in EMPTY BAG 1 BAG IVPB STA (21:21)
[2017-12-20] MEDS ORDERED: NOREPINEPHRINE 16 MG in SODIUM CHLORIDE 0.9% 250 ML IV SCH (21:30)
[2017-12-20] MEDS: MELATONIN 3 MG TABLET PO SCH (22:35)
[2017-12-20] MEDS: CHLORHEXIDINE GLUCONATE 15 ML CUP MUCOUS MEM SCH (22:47)
[2017-12-20 23:22] LABS: Anisocytosis Slight; HCT 26.3 % (34.0-46.0); HGB 8.4 gm/dL (11.4-16.0); Hypochromasia Slight; MCH 27.5 pg (25.0-35.0); MCHC 31.8 g/dL (31.0-37.0); MCV 86.4 fL (80.0-100.0); Mean Platelet Volume 7.1; Platelet Count 414 k/uL (150-450); RBC 3.04 m/uL (3.80-5.40); RDW 16.2 % (11.5-15.5)
[2017-12-20 23:29] LABS: WBC 27.5 k/uL (3.8-10.6)
[2017-12-20 23:41] LABS: Calcium 6.9 mg/dL (8.4-10.2); Magnesium 1.5 mg/dL (1.6-2.3); Phosphorus 4.4 mg/dL (2.5-4.5); Potassium 3.8 mmol/L (3.5-5.1)
[2017-12-20] MEDS ORDERED: Magnesium Replacement Protocol 1 EACH MISC MISCELLANE PRN (23:43)
[2017-12-21] MEDS: PIPERACILLIN-TAZOBACTAM 3.375 GM in DEXTROSE/WATER 1 50ML.BAG IVPB SCH (00:43)
[2017-12-21] MEDS: HYDROmorphone 1 MG/ML 1 ML SYRINGE IVP PRN (00:48)
[2017-12-21] MEDS: MAGNESIUM SULFATE-D5W PMX 1 GM in DEXTROSE/WATER 1 100ML.BAG IVPB SCH ×4 (00:52→09:34)
[2017-12-21] MEDS: POTASSIUM CHLORIDE 10 MEQ in WATER FOR INJECTION 1 100ML.BAG IVPB SCH ×4 (00:59→23:46)
[2017-12-21] MEDS ORDERED: LACTATED RINGERS 1,000 ML IV SCH (01:15)
[2017-12-21] MEDS: HEPARIN SODIUM,PORCINE 5,000 UNIT/ML 1 ML VIAL SQ SCH ×3 (01:51→15:31)
[2017-12-21] MEDS: PROPOFOL 1,000 MG in EMPTY BAG 1 BAG IV SCH ×5 (03:56→23:49)
[2017-12-21 04:56] LABS: Anisocytosis Slight; Basophils # (A) 0.1 k/uL (0-0.2); Basophils % (A) 0 %; Eosinophils % (A) 0 %; HCT 26.9 % (34.0-46.0); HGB 8.4 gm/dL (11.4-16.0); Hypochromasia Slight; Lymphocytes # (A) 0.9 k/uL (1.0-4.8); Lymphocytes % (A) 3 %; MCH 27.1 pg (25.0-35.0); MCHC 31.5 g/dL (31.0-37.0); MCV 86.1 fL (80.0-100.0); Mean Platelet Volume 7.2; Monocytes # (A) 0.6 k/uL (0-1.0); Monocytes % (A) 2 %; Neutrophils # (A) 29.6 k/uL (1.3-7.7); Neutrophils % (A) 94 %; Platelet Count 481 k/uL (150-450); Poikilocytosis Slight; RBC 3.12 m/uL (3.80-5.40)
[2017-12-21 04:57] LABS: ABG HCO3 17 mmol/L (21-25); ABG Oxygen Saturation 98.3 % (94-97); ABG PCO2 28 mmHg (35-45); ABG PH 7.39 (7.35-7.45); ABG PO2 96 mmHg (83-108); ABG TCO2 18 mmol/L (19-24)
[2017-12-21 05:04] LABS: WBC 31.4 k/uL (3.8-10.6)
[2017-12-21 05:12] LABS: Albumin 1.9 g/dL (3.5-5.0); Calcium 7.1 mg/dL (8.4-10.2); Magnesium 1.9 mg/dL (1.6-2.3); Potassium 4.1 mmol/L (3.5-5.1); Total Bilirubin 0.8 mg/dL (0.2-1.3); Total Protein 3.7 g/dL (6.3-8.2)
[2017-12-21] MEDS: IPRATROPIUM-ALBUTEROL 3 ML NEB INHALATION SCH ×4 (07:25→19:03)
--- NOTE | 2017-12-21 08:00 | P.PN ---
Subjective Progress Note Date: 12/21/17 Principal diagnosis: Coronary artery bypass grafting This is a pleasant 72-year-old female patient who underwent elective coronary artery bypass grafting 10 days ago. Yesterday, the patient developed abdominal discomfort associated with severe diarrhea. The chest x-ray showed pneumoperitoneum. Subsequent computed tomography scan of the abdomen showed also pneumoperitoneum. The patient was taken to the OR emergently where she underwent colectomy and currently she has a colostomy. The abdominal wall wound left open with a dressing. Clinically the patient is not doing well. She is intubated and she is on ventilator. Hemodynamically she is unstable and she is requiring 10 jeanine of Levophed. We will trying to get down with a Levophed and wean her from that. She is not putting a good urine output. She continues to be in normal sinus mechanism. Objective - Vital Signs Vital signs: Vital Signs Temp 99.6 F 12/21/17 05:00 Pulse 86 12/21/17 07:40 Resp 13 12/21/17 05:00 BP 117/49 12/20/17 21:43 Pulse Ox 99 12/21/17 05:00 Intake & Output 12/20/17 12/21/17 12/21/17 18:59 06:59 18:59 Intake Total 2500 3536.779 Output Total 760 315 Balance 1740 3221.779 Intake: IV 2500 3174 Albumin Human 25% 50 ml 50 In Empty Bag 1 bag @ 100 mls/hr IVPB ONCE [facility] Rx#: [id number] Piperacillin-Tazobactam 3 50 .375 gm In Dextrose/Water 1 50ml.bag @ 12.5 mls/hr IVPB Q8HR [facility] Rx#: [id number] Sodium Chloride 0.9% 1, 900 1125 000 ml @ 125 mls/hr IV . Q8H [facility] Rx#:[id number] Sodium Chloride 0.9% 1, 1999 000 ml @ 999 mls/hr IV . Q1H1M [facility] Rx#:[id number] Intake, IV Titration 52.779 Amount Propofol 1,000 mg In 52.779 Empty Bag 1 bag @ Titrate IV .Q0M [facility] Rx#: [id number] Blood Product 310 Rc As-1 Unit 310 [id number] Output: Urine 460 315 Stool 200 Estimated Blood Loss 100 Other: Voiding Method Indwelling Catheter Indwelling Catheter # Voids 1 ABP, PAP, CO, CI - Last Documented Arterial Blood Pressure 109/57 Pulmonary Artery Pressure 4/4 Cardiac Output 4.5 Cardiac Index 2.5 - Constitutional General appearance: Present: no acute distress - Respiratory Respiratory: bilateral: diminished - Cardiovascular Rhythm: regular Heart sounds: normal: S1, S2 - Labs CBC & Chem 7: 12/21/17 04:30 12/21/17 04:30 Labs: Abnormal Lab Results - Last 24 Hours (Table) 12/20/17 12/20/17 12/20/17 Range/Units 04:30 11:26 18:09 WBC 14.3 H 18.0 H (3.8-10.6) k/uL RBC 2.97 L 2.79 L (3.80-5.40) m/uL Hgb 8.0 L 7.5 L (11.4-16.0) gm/dL Hct 26.0 L 24.0 L (34.0-46.0) % MCHC 30.8 L (31.0-37.0) g/dL RDW 16.5 H 16.6 H (11.5-15.5) % Plt Count 464 H (150-450) k/uL Neutrophils # (1.3-7.7) k/uL Neutrophils # (Manual) 11.70 H (1.3-7.7) k/uL Lymphocytes # (1.0-4.8) k/uL Metamyelocytes # (Man) 0.43 H (0) k/uL Myelocytes # (Manual) 0.43 H (0) k/uL ABG pH (7.35-7.45) ABG pCO2 (35-45) mmHg ABG pO2 (83-108) mmHg ABG HCO3 (21-25) mmol/L ABG Total CO2 (19-24) mmol/L ABG O2 Saturation (94-97) % Sodium (137-145) mmol/L Chloride (98-107) mmol/L Carbon Dioxide (22-30) mmol/L Glucose (74-99) mg/dL Calcium (8.4-10.2) mg/dL Magnesium (1.6-2.3) mg/dL Total Protein (6.3-8.2) g/dL Albumin (3.5-5.0) g/dL Crossmatch See Detail 12/20/17 12/20/17 12/20/17 Range/Units 19:35 23:08 23:08 WBC 27.5 H* (3.8-10.6) k/uL RBC 3.04 L (3.80-5.40) m/uL Hgb 8.4 L (11.4-16.0) gm/dL Hct 26.3 L (34.0-46.0) % MCHC (31.0-37.0) g/dL RDW 16.2 H (11.5-15.5) % Plt Count (150-450) k/uL Neutrophils # (1.3-7.7) k/uL Neutrophils # (Manual) (1.3-7.7) k/uL Lymphocytes # (1.0-4.8) k/uL Metamyelocytes # (Man) (0) k/uL Myelocytes # (Manual) (0) k/uL ABG pH 7.30 L (7.35-7.45) ABG pCO2 (35-45) mmHg ABG pO2 233 H (83-108) mmHg ABG HCO3 20 L (21-25) mmol/L ABG Total CO2 (19-24) mmol/L ABG O2 Saturation 99.7 H (94-97) % Sodium 136 L (137-145) mmol/L Chloride 111 H (98-107) mmol/L Carbon Dioxide 16 L (22-30) mmol/L Glucose (74-99) mg/dL Calcium 6.9 L (8.4-10.2) mg/dL Magnesium 1.5 L (1.6-2.3) mg/dL Total Protein (6.3-8.2) g/dL Albumin (3.5-5.0) g/dL Crossmatch 12/21/17 12/21/17 12/21/17 Range/Units 04:30 04:30 04:54 WBC 31.4 H* (3.8-10.6) k/uL RBC 3.12 L (3.80-5.40) m/uL Hgb 8.4 L (11.4-16.0) gm/dL Hct 26.9 L (34.0-46.0) % MCHC (31.0-37.0) g/dL RDW 17.0 H (11.5-15.5) % Plt Count 481 H (150-450) k/uL Neutrophils # 29.6 H (1.3-7.7) k/uL Neutrophils # (Manual) (1.3-7.7) k/uL Lymphocytes # 0.9 L (1.0-4.8) k/uL Metamyelocytes # (Man) (0) k/uL Myelocytes # (Manual) (0) k/uL ABG pH (7.35-7.45) ABG pCO2 28 L (35-45) mmHg ABG pO2 (83-108) mmHg ABG HCO3 17 L (21-25) mmol/L ABG Total CO2 18 L (19-24) mmol/L ABG O2 Saturation 98.3 H (94-97) % Sodium 135 L (137-145) mmol/L Chloride 110 H (98-107) mmol/L Carbon Dioxide 17 L (22-30) mmol/L Glucose 106 H (74-99) mg/dL Calcium 7.1 L (8.4-10.2) mg/dL Magnesium (1.6-2.3) mg/dL Total Protein 3.7 L (6.3-8.2) g/dL Albumin 1.9 L (3.5-5.0) g/dL Crossmatch Assessment and Plan Assessment: Assessment #1 status post coronary artery bypass grafting for severe left main disease #2 acute respiratory failure #3 perforated viscus. #4 status post colectomy and colostomy #5 multiple comorbid conditions Plan #1 the patient has been maintaining normal sinus mechanism #2 the right wean the patient from the vasopressors #3 continue ventilator management per Engineering Team Supervisor #4 follow-up with the patient.
[2017-12-21] MEDS: SODIUM CHLORIDE 0.9% 1,000 ML IV SCH ×3 (08:02→23:47)
[2017-12-21] MEDS: LEVOTHYROXINE 75 MCG TAB PO SCH (08:03)
[2017-12-21] MEDS: INSULIN ASPART 100 UNIT/ML 1 ML 10 ML VIAL SQ SCH ×4 (08:03→23:49)
[2017-12-21] MEDS: PANTOPRAZOLE 40 MG TABLET PO SCH (08:03)
[2017-12-21] MEDS ORDERED: MEROPENEM 2 GM in SODIUM CHLORIDE 0.9% 100 ML IVPB SCH (08:15)
[2017-12-21] MEDS ORDERED: Magnesium Replacement Protocol 1 EACH MISC MISCELLANE PRN (08:18)
[2017-12-21] MEDS ORDERED: ANIDULAFUNGIN 200 MG in SODIUM CHLORIDE 0.9% 200 ML IVPB ONE (08:30)
[2017-12-21] MEDS: CHLORHEXIDINE GLUCONATE 15 ML CUP MUCOUS MEM SCH ×2 (08:37→20:19)
[2017-12-21] MEDS ORDERED: SODIUM BICARB 8.4% 50 ML SYR (1 MEQ/ML) IV ONE (08:39)
--- NOTE | 2017-12-21 08:43 | XR ---
EXAMINATION TYPE: XR chest 1V portable DATE OF EXAM: 12/21/2017 COMPARISON: 12/20/2017 INDICATION: Tube placement, difficulty breathing TECHNIQUE: Single frontal view of the chest is obtained. FINDINGS: The heart size is normal. The pulmonary vasculature is normal. Left lower lobe infiltrate may be present. Previous left pleural effusion has largely resolved. The endotracheal tube placement has been adjusted currently has a tip 4.6 cm above the al. [place] stric tube transverses the thorax with tip in the left upper quadrant of the abdomen. Right central v enous catheter has its tip in the right atrium. EKG leads overlie the chest. IMPRESSION: 1. Adjustment of the endotracheal tube with the tip now above the al. 2. Additional lines and catheters discussed above. 3. Improving left pleural fluid
[2017-12-21] MEDS ORDERED: ALBUMIN HUMAN 5% 250 ML in EMPTY BAG 1 BAG IVPB STA (08:59)
[2017-12-21] MEDS ORDERED: FLUCONAZOLE IN NACL,ISO-OSM 200 MG in SALINE 1 100ML.BAG IVPB SCH (09:00)
--- NOTE | 2017-12-21 09:14 | P.PN ---
Subjective Progress Note Date: 12/21/17 Principal diagnosis: Coronary artery disease with critical left main disease. Preserved left ventricular function. Previous medical history of hypertension, hyperlipidemia , diabetes mellitus with preoperative hemoglobin A1c 8.1%, hypothyroid, chest granulomatous disease, peripheral vascular disease status post right fem-pop bypass, previous tobacco dependence with preoperative FEV1 109% of predicted in November 2016, recent fall in June 2017 with torn right rotator cuff, questionable DVT with previous Coumadin use greater than 2 years ago, syncopal episodes, history of paroxysmal atrial fibrillation, chronic low back pain, obesity, depression and preoperative E. coli urinary tract infection. POD #10 urgent quadruple coronary artery bypass grafting using the left internal mammary artery sequentially to the diagonal coronary artery and to the left anterior descending coronary artery, a reverse greater saphenous vein graft from the aorta to the first obtuse marginal coronary artery, a reverse greater saphenous vein graft from the aorta to the third obtuse marginal coronary artery. Bilateral pulmonary vein isolation using the AtriCure radiofrequency clamp. Exclusion of the left atrial appendage using a 35 mm AtriClip. Intraoperative transesophageal echocardiogram and epi-aortic scanning. POD #1 right colectomy, transverse colectomy, takedown splenic flexure, ileostomy performed by Dr. Montoya Postoperative elevation in transaminases, an unexpected outcome, resolving. Leukocytosis, present preoperatively. Postoperative diarrhea, an unexpected outcome. Postoperative normochromic, normocytic anemia, an expected outcome of surgery secondary to cardiopulmonary bypass and hemodilution. Postoperative urinary retention, an unexpected outcome. Postoperative pneumoperitoneum, an unexpected outcome. Necrosis of the transverse colon, right colon and unexpected outcome. The patient is laying in bed with mechanical ventilator support. Currently sedated on propofol drip at 50 mcg/kg/m. Yesterday morning she developed some acute onset of abdominal pain, severe diarrhea and was found to have pneumoperitoneum on her morning chest x-ray. Subsequently she was evaluated by Dr. Montoya from general surgery and was taken to the operating room sure where she underwent an urgent right colectomy, transverse colectomy, takedown of splenic flexure and ileostomy placement. She is currently afebrile. Hemodynamically stable on norepinephrine at 10 mcg/m. Night RN reports she had 1 liquid green stool this a.m. Laboratory results this morning are demonstrating a WBC count of 31.4, neutrophils 29.6 and hemoglobin 8.4. Objective - Vital Signs Vital signs: Vital Signs Temp 99.6 F 12/21/17 05:00 Pulse 86 12/21/17 07:40 Resp 22 12/21/17 07:00 BP 117/49 12/20/17 21:43 Pulse Ox 99 12/21/17 07:00 Intake & Output 12/20/17 12/21/17 12/21/17 18:59 06:59 18:59 Intake Total 2500 3661.779 125 Output Total 760 340 30 Balance 1740 3321.779 95 Intake: IV 2500 3299 125 Albumin Human 25% 50 ml 50 In Empty Bag 1 bag @ 100 mls/hr IVPB ONCE [facility] Rx#: [id number] Piperacillin-Tazobactam 3 50 .375 gm In Dextrose/Water 1 50ml.bag @ 12.5 mls/hr IVPB Q8HR [facility] Rx#: [id number] Sodium Chloride 0.9% 1, 900 1250 125 000 ml @ 125 mls/hr IV . Q8H [facility] Rx#:[id number] Sodium Chloride 0.9% 1, 1999 000 ml @ 999 mls/hr IV . Q1H1M [facility] Rx#:[id number] Intake, IV Titration 52.779 Amount Propofol 1,000 mg In 52.779 Empty Bag 1 bag @ Titrate IV .Q0M [facility] Rx#: [id number] Blood Product 310 Rc As-1 Unit 310 [id number] Output: Urine 460 340 30 Stool 200 Estimated Blood Loss 100 Other: Voiding Method Indwelling Catheter Indwelling Catheter # Voids 1 ABP, PAP, CO, CI - Last Documented Arterial Blood Pressure 118/70 Pulmonary Artery Pressure 4/4 Cardiac Output 4.5 Cardiac Index 2.5 - Exam She is intubated with mechanical ventilator support. Currently sedated on propofol drip at 50 mcg/kg/m. She is moving all 4 extremities appropriately and following some verbal commands. - Constitutional General appearance: Present: cooperative, no acute distress, obese - Respiratory Details: Lung sounds are essentially clear throughout, diminished for bilateral bases. Respirations are symmetrical and nonlabored with mechanical ventilator support. Current ventilator settings are as follows: Assist control 18, tidal volume 400, FiO2 40%, PEEP of 5. Oxygen saturations on current ventilator settings are 100%. #7.[address] and secured at 22 cm at the lip. - Cardiovascular Details: Regular rhythm and rate. S1 and S2 present, negative for S3, gallop or murmur. Sternum is stable. Bedside telemetry showing normal sinus rhythm heart rate 85. Doppler posterior tibial pulses present bilaterally. Knee-high KURT hose and sequential compression devices in place to her bilateral lower extremities. No edema present. Right IJ triple lumen in place and functioning, current CVP 8 mmHg. Norepinephrine drip at 3 mcg/m. Left radial A-line in place and functioning. - Gastrointestinal Gastrointestinal Comment(s): Abdomen is soft, and nondistended. Right lower quadrant abdominal ileostomy. OG tube in place draining green bile colored drainage. 200 mL output the last 8 hours. Absent bowel sounds. Liquid green stool 1 this a.m. - Genitourinary Genitourinary Comment(s): Almaguer catheter for accurate I&O. Draining clear noah urine. 250 mL output in the last 8 hours. - Integumentary Integumentary Comment(s): Skin is warm and dry. No clubbing or cyanosis present. Bilateral feet cool to touch. Midline sternal incision clean dry and approximated. No drainage or redness present. Left leg EVH site clean dry and approximated. No drainage or redness present. Ecchymotic area to her left thigh, soft to touch. Midline abdominal incision clean dry and approximated. No drainage or redness present. Right lower quadrant abdominal ileostomy. - Neurologic Neurologic Comment(s): Currently sedated on propofol drip at 50 mcg/kg/m. Moving all 4 extremities appropriately with verbal stimuli. Following some simple commands. - Musculoskeletal Musculoskeletal: Present: generalized weakness, strength equal bilaterally - Allied health notes Allied health notes reviewed: nursing - Labs CBC & Chem 7: 12/21/17 04:30 12/21/17 04:30 Labs: Abnormal Lab Results - Last 24 Hours (Table) 12/20/17 12/20/17 12/20/17 Range/Units 04:30 11:26 18:09 WBC 14.3 H 18.0 H (3.8-10.6) k/uL RBC 2.97 L 2.79 L (3.80-5.40) m/uL Hgb 8.0 L 7.5 L (11.4-16.0) gm/dL Hct 26.0 L 24.0 L (34.0-46.0) % MCHC 30.8 L (31.0-37.0) g/dL RDW 16.5 H 16.6 H (11.5-15.5) % Plt Count 464 H (150-450) k/uL Neutrophils # (1.3-7.7) k/uL Neutrophils # (Manual) 11.70 H (1.3-7.7) k/uL Lymphocytes # (1.0-4.8) k/uL Metamyelocytes # (Man) 0.43 H (0) k/uL Myelocytes # (Manual) 0.43 H (0) k/uL ABG pH (7.35-7.45) ABG pCO2 (35-45) mmHg ABG pO2 (83-108) mmHg ABG HCO3 (21-25) mmol/L ABG Total CO2 (19-24) mmol/L ABG O2 Saturation (94-97) % Sodium (137-145) mmol/L Chloride (98-107) mmol/L Carbon Dioxide (22-30) mmol/L Glucose (74-99) mg/dL Calcium (8.4-10.2) mg/dL Magnesium (1.6-2.3) mg/dL Total Protein (6.3-8.2) g/dL Albumin (3.5-5.0) g/dL Crossmatch See Detail 12/20/17 12/20/17 12/20/17 Range/Units 19:35 23:08 23:08 WBC 27.5 H* (3.8-10.6) k/uL RBC 3.04 L (3.80-5.40) m/uL Hgb 8.4 L (11.4-16.0) gm/dL Hct 26.3 L (34.0-46.0) % MCHC (31.0-37.0) g/dL RDW 16.2 H (11.5-15.5) % Plt Count (150-450) k/uL Neutrophils # (1.3-7.7) k/uL Neutrophils # (Manual) (1.3-7.7) k/uL Lymphocytes # (1.0-4.8) k/uL Metamyelocytes # (Man) (0) k/uL Myelocytes # (Manual) (0) k/uL ABG pH 7.30 L (7.35-7.45) ABG pCO2 (35-45) mmHg ABG pO2 233 H (83-108) mmHg ABG HCO3 20 L (21-25) mmol/L ABG Total CO2 (19-24) mmol/L ABG O2 Saturation 99.7 H (94-97) % Sodium 136 L (137-145) mmol/L Chloride 111 H (98-107) mmol/L Carbon Dioxide 16 L (22-30) mmol/L Glucose (74-99) mg/dL Calcium 6.9 L (8.4-10.2) mg/dL Magnesium 1.5 L (1.6-2.3) mg/dL Total Protein (6.3-8.2) g/dL Albumin (3.5-5.0) g/dL Crossmatch 12/21/17 12/21/17 12/21/17 Range/Units 04:30 04:30 04:54 WBC 31.4 H* (3.8-10.6) k/uL RBC 3.12 L (3.80-5.40) m/uL Hgb 8.4 L (11.4-16.0) gm/dL Hct 26.9 L (34.0-46.0) % MCHC (31.0-37.0) g/dL RDW 17.0 H (11.5-15.5) % Plt Count 481 H (150-450) k/uL Neutrophils # 29.6 H (1.3-7.7) k/uL Neutrophils # (Manual) (1.3-7.7) k/uL Lymphocytes # 0.9 L (1.0-4.8) k/uL Metamyelocytes # (Man) (0) k/uL Myelocytes # (Manual) (0) k/uL ABG pH (7.35-7.45) ABG pCO2 28 L (35-45) mmHg ABG pO2 (83-108) mmHg ABG HCO3 17 L (21-25) mmol/L ABG Total CO2 18 L (19-24) mmol/L ABG O2 Saturation 98.3 H (94-97) % Sodium 135 L (137-145) mmol/L Chloride 110 H (98-107) mmol/L Carbon Dioxide 17 L (22-30) mmol/L Glucose 106 H (74-99) mg/dL Calcium 7.1 L (8.4-10.2) mg/dL Magnesium (1.6-2.3) mg/dL Total Protein 3.7 L (6.3-8.2) g/dL Albumin 1.9 L (3.5-5.0) g/dL Crossmatch - Imaging and Cardiology Chest x-ray: report reviewed, image reviewed Assessment and Plan (1) Diarrhea in adult patient Current Visit: Yes Status: Acute Code(s): R19.7 - DIARRHEA, UNSPECIFIED SNOMED Code(s): 07866930 (2) Chronic low back pain Current Visit: Yes Status: Chronic Code(s): M54.5 - LOW BACK PAIN; G89.29 - OTHER CHRONIC PAIN SNOMED Code(s): 403262357 (3) Coronary artery disease involving left main coronary artery Current Visit: Yes Status: Chronic Code(s): I25.10 - ATHSCL HEART DISEASE OF [place] CORONARY ARTERY W/O ANG PCTRS SNOMED Code(s): 613189564 (4) Diabetes Current Visit: Yes Status: Chronic Code(s): E11.9 - TYPE 2 DIABETES MELLITUS WITHOUT COMPLICATIONS SNOMED Code(s): 88731358 (5) Family history of heart disease Current Visit: Yes Status: Chronic Code(s): Z82.49 - FAMILY HX OF [place]HE[place] HEART DIS AND OTH DIS OF THE CIRC SYS SNOMED Code(s): 098726978 (6) Hyperlipidemia Current Visit: Yes Status: Chronic Code(s): E78.5 - HYPERLIPIDEMIA, UNSPECIFIED SNOMED Code(s): 02631948 (7) Hypertension Current Visit: Yes Status: Chronic Code(s): I10 - ESSENTIAL (PRIMARY) HYPERTENSION SNOMED Code(s): 98983477 (8) Hypothyroid Current Visit: Yes Status: Chronic Code(s): E03.9 - HYPOTHYROIDISM, UNSPECIFIED SNOMED Code(s): 30027978 (9) Peripheral vascular disease Current Visit: Yes Status: Chronic Code(s): I73.9 - PERIPHERAL VASCULAR DISEASE, UNSPECIFIED SNOMED Code(s): 545519270 (10) History of DVT (deep vein thrombosis) Current Visit: No Status: Resolved Code(s): Z86.718 - PERSONAL HISTORY OF OTHER VENOUS THROMBOSIS AND EMBOLISM SNOMED Code(s): 252991000 (11) History of atrial fibrillation Current Visit: No Status: Resolved Code(s): Z86.79 - PERSONAL HISTORY OF OTHER DISEASES OF THE CIRCULATORY SYSTEM SNOMED Code(s): 514911602 (12) Tobacco dependence in remission Current Visit: No Status: Resolved Code(s): F17.201 - NICOTINE DEPENDENCE, UNSPECIFIED, IN REMISSION SNOMED Code(s): 365678812 (13) Intestinal necrosis Current Visit: Yes Status: Acute Code(s): K55.069 - ACUTE INFARCTION OF INTESTINE, PART AND EXTENT UNSPECIFIED SNOMED Code(s): 20830309 (14) Ileostomy in place Current Visit: Yes Status: Acute Code(s): Z93.2 - ILEOSTOMY STATUS SNOMED Code(s): 535487798 Plan: 1. Continue low dose aspirin, statin, and beta sheree. Will increase her beta sheree as tolerated. 2. Mechanical ventilator support management per Dr. Salas. Wean to extubate as tolerated. 3. Wean propofol drip as tolerated. 4. Continue amiodarone for A. fib prophylaxis. Currently on amiodarone 200 mg by mouth twice a day. 5. Antibiotic management per Dr. Mccartney from infectious disease. C. difficile culture and stool cultures are negative. 6. Monitor daily labs, chest x-rays. 7. GI/DVT prophylaxis. 8. Pain control with current medication regimen. Minimize narcotic usage, Ofirmev ordered. 9. Bronchodilators management per pulmonology. 10. Insulin/diabetic management per primary care service. 11. Continue 0.9% normal saline to 125 mL per hour. 12. Keep Almaguer catheter in place for now due to urinary retention and accurate I&O. 13. Half an amp of sodium bicarb 1 now. 14. Wean norepinephrine as tolerated. 15. 5% albumin 250 mL 1 now. 16. More recommendations to follow based on patient's clinical course. Time with Patient: Greater than 30
[2017-12-21] MEDS: MEROPENEM 2 GM in SODIUM CHLORIDE 0.9% 100 ML IVPB SCH ×2 (09:27→20:18)
[2017-12-21] MEDS: DULoxetine HCL 60 MG CAPSULE.DR PO SCH (09:36)
[2017-12-21] MEDS: CLOPIDOGREL 75 MG TAB PO SCH (10:02)
[2017-12-21] MEDS: ATORVASTATIN 40 MG TAB PO SCH (10:02)
[2017-12-21] MEDS: ASPIRIN 81 MG PO SCH (10:02)
[2017-12-21] MEDS: AMIODARONE 200 MG TAB PO SCH ×2 (10:02→20:19)
[2017-12-21] MEDS: PANTOPRAZOLE 40 MG/10 ML VIAL IVP SCH (10:05)
[2017-12-21] MEDS: LEVOTHYROXINE IVP 100 MCG/5 ML VIAL IV SCH (10:10)
[2017-12-21] MEDS: LACTATED RINGERS 1,000 ML IV SCH ×3 (10:13→12:32)
[2017-12-21] MEDS: FERROUS SULFATE 325 MG TAB PO SCH (11:13)
[2017-12-21] MEDS: METOPROLOL TARTRATE 5 MG/5 ML VIAL IVP SCH ×2 (11:58→18:38)
[2017-12-21] MEDS: ACETAMINOPHEN IV (For NPO) 1,000 MG in EMPTY BAG 1 BAG IVPB SCH ×2 (11:58→19:16)
[2017-12-21 12:11] LABS: Glucose,Whole Blood 135 mg/dL (75-99)
[2017-12-21] MEDS ORDERED: LACTATED RINGERS 1,000 ML IV ONE (12:47)
[2017-12-21] MEDS: ASCORBIC ACID 500 MG TAB PO SCH (12:55)
[2017-12-21] MEDS: CYANOCOBALAMIN 500 MCG TAB PO SCH (12:55)
--- NOTE | 2017-12-21 13:40 | P.PN ---
Subjective Progress Note Date: 12/21/17 72-year-old female seen sedated on a vent for vent support. Being followed by the production quality manager for ICU management. Also being followed by cardiovascular surgery. Patient is postop elective coronary artery bypass grafting 10 days ago. On December 20 developed abdominal discomfort with severe diarrhea. Chest x -ray did show pneumoperitoneum.this was followed up with a computed tomography scan of the abdomen showed also pneumoperitoneum on December 20 did undergo right colectomy transverse colectomy, takedown splenic flexure, ileostomy Objective - Vital Signs Vital signs: Vital Signs Temp 99.3 F 12/21/17 12:00 Pulse 75 12/21/17 12:00 Resp 18 12/21/17 12:00 BP 117/43 12/21/17 11:00 Pulse Ox 100 12/21/17 12:00 Intake & Output 12/20/17 12/21/17 12/21/17 18:59 06:59 18:59 Intake Total 2500 3661.779 3033.951 Output Total 760 340 240 Balance 1740 3321.779 2793.951 Intake: IV 2500 3299 2575 ACETAMINOPHEN IV (For NPO 100 ) 1,000 mg In Empty Bag 1 bag @ 400 mls/hr IVPB Q6HR [facility] Rx#:[id number] Albumin Human 25% 50 ml 50 250 In Empty Bag 1 bag @ 100 mls/hr IVPB ONCE [facility] Rx#: [id number] Anidulafungin 200 mg In 200 Sodium Chloride 0.9% 200 ml @ 84 mls/hr IVPB ONCE [facility] Rx#:[id number] Fluconazole in NaCl,Iso- 100 Osm 200 mg In Saline 1 100ml.bag @ 100 mls/hr IVPB DAILY [facility] Rx#: [id number] Lactated Ringers 1,000 ml 1000 @ 999 mls/hr IV .Q1H1M [facility] Rx#:[id number] Magnesium Sulfate-D5w Pmx 200 1 gm In Dextrose/Water 1 100ml.bag @ 100 mls/hr IVPB Q1H [facility] Rx#: [id number] Meropenem 2 gm In Sodium 100 Chloride 0.9% 100 ml @ 200 mls/hr IVPB Q12HR [facility] Rx#:[id number] Piperacillin-Tazobactam 3 50 .375 gm In Dextrose/Water 1 50ml.bag @ 12.5 mls/hr IVPB Q8HR [facility] Rx#: [id number] Sodium Chloride 0.9% 1, 900 1250 625 000 ml @ 125 mls/hr IV . Q8H [facility] Rx#:[id number] Sodium Chloride 0.9% 1, 1999 000 ml @ 999 mls/hr IV . Q1H1M [facility] Rx#:[id number] Intake, IV Titration 52.779 218.951 Amount Norepinephrine 16 mg In 64.708 Sodium Chloride 0.9% 250 ml @ Titrate IV .Q0M [facility] Rx#:[id number] Propofol 1,000 mg In 52.779 154.243 Empty Bag 1 bag @ Titrate IV .Q0M [facility] Rx#: [id number] Oral 240 Blood Product 310 Rc As-1 Unit 310 [id number] Output: Urine 460 340 240 Stool 200 Estimated Blood Loss 100 Other: Voiding Method Indwelling Catheter Indwelling Catheter Indwelling Catheter # Voids 1 1 ABP, PAP, CO, CI - Last Documented Arterial Blood Pressure 107/39 Pulmonary Artery Pressure 4/4 Cardiac Output 4.5 Cardiac Index 2.5 - Exam Physical exam Sedated on vent support and pressor support as well Lungs diminished bilaterally Heart S1-S2 audible Abdomen ostomy no movement no stool surgical dressing currently dry. Hypoactive bowel tones nasal gastric tube to suction indwelling Almaguer catheter in place Extremities Venodyne's on to bilateral lower extremities - Labs CBC & Chem 7: 12/21/17 04:30 12/21/17 04:30 Labs: Abnormal Lab Results - Last 24 Hours (Table) 12/20/17 12/20/17 12/20/17 Range/Units 11:26 18:09 19:35 WBC 18.0 H (3.8-10.6) k/uL RBC 2.79 L (3.80-5.40) m/uL Hgb 7.5 L (11.4-16.0) gm/dL Hct 24.0 L (34.0-46.0) % RDW 16.6 H (11.5-15.5) % Plt Count 464 H (150-450) k/uL Neutrophils # (1.3-7.7) k/uL Lymphocytes # (1.0-4.8) k/uL ABG pH 7.30 L (7.35-7.45) ABG pCO2 (35-45) mmHg ABG pO2 233 H (83-108) mmHg ABG HCO3 20 L (21-25) mmol/L ABG Total CO2 (19-24) mmol/L ABG O2 Saturation 99.7 H (94-97) % Sodium (137-145) mmol/L Chloride (98-107) mmol/L Carbon Dioxide (22-30) mmol/L Glucose (74-99) mg/dL POC Glucose (mg/dL) (75-99) mg/dL Calcium (8.4-10.2) mg/dL Magnesium (1.6-2.3) mg/dL Total Protein (6.3-8.2) g/dL Albumin (3.5-5.0) g/dL Crossmatch See Detail 12/20/17 12/20/17 12/21/17 Range/Units 23:08 23:08 04:30 WBC 27.5 H* 31.4 H* (3.8-10.6) k/uL RBC 3.04 L 3.12 L (3.80-5.40) m/uL Hgb 8.4 L 8.4 L (11.4-16.0) gm/dL Hct 26.3 L 26.9 L (34.0-46.0) % RDW 16.2 H 17.0 H (11.5-15.5) % Plt Count 481 H (150-450) k/uL Neutrophils # 29.6 H (1.3-7.7) k/uL Lymphocytes # 0.9 L (1.0-4.8) k/uL ABG pH (7.35-7.45) ABG pCO2 (35-45) mmHg ABG pO2 (83-108) mmHg ABG HCO3 (21-25) mmol/L ABG Total CO2 (19-24) mmol/L ABG O2 Saturation (94-97) % Sodium 136 L (137-145) mmol/L Chloride 111 H (98-107) mmol/L Carbon Dioxide 16 L (22-30) mmol/L Glucose (74-99) mg/dL POC Glucose (mg/dL) (75-99) mg/dL Calcium 6.9 L (8.4-10.2) mg/dL Magnesium 1.5 L (1.6-2.3) mg/dL Total Protein (6.3-8.2) g/dL Albumin (3.5-5.0) g/dL Crossmatch 12/21/17 12/21/17 12/21/17 Range/Units 04:30 04:54 12:09 WBC (3.8-10.6) k/uL RBC (3.80-5.40) m/uL Hgb (11.4-16.0) gm/dL Hct (34.0-46.0) % RDW (11.5-15.5) % Plt Count (150-450) k/uL Neutrophils # (1.3-7.7) k/uL Lymphocytes # (1.0-4.8) k/uL ABG pH (7.35-7.45) ABG pCO2 28 L (35-45) mmHg ABG pO2 (83-108) mmHg ABG HCO3 17 L (21-25) mmol/L ABG Total CO2 18 L (19-24) mmol/L ABG O2 Saturation 98.3 H (94-97) % Sodium 135 L (137-145) mmol/L Chloride 110 H (98-107) mmol/L Carbon Dioxide 17 L (22-30) mmol/L Glucose 106 H (74-99) mg/dL POC Glucose (mg/dL) 135 H (75-99) mg/dL Calcium 7.1 L (8.4-10.2) mg/dL Magnesium (1.6-2.3) mg/dL Total Protein 3.7 L (6.3-8.2) g/dL Albumin 1.9 L (3.5-5.0) g/dL Crossmatch Assessment and Plan Assessment: Impression Ischemic colitis resolving stool for C. diff negative Postop diarrhea 9 expected outcome Postop day 8 urgent quadruple coronary artery bypass grafting using left internal mammary Echocardiogram preserved LV function Sudden onset of abdominal pain postoperative suspect due to free air. As evident on a CAT scan of the abdomen and pelvis Right colectomy, transverse colectomy, takedown splenic flexure, ileostomy for Perforated viscus done on December 20 Necrosis of transverse colon, right colon Plan Continue postop [facility] care Continue recommendations by the production quality manager Vent support per pulmonary Will follow with you with further recommendations as clinical course indicates Progress note dictated for Dr. tatum covering on behalf of Dr. Crum
[2017-12-21 14:42] LABS: Ionized Calcium 4.6 mg/dL (4.5-5.3)
[2017-12-21 14:45] LABS: Potassium 3.6 mmol/L (3.5-5.1)
[2017-12-21 14:48] LABS: Phosphorus 3.6 mg/dL (2.5-4.5)
[2017-12-21 15:07] LABS: Anisocytosis Slight; Basophils # (A) 0.1 k/uL (0-0.2); Basophils % (A) 0 %; Eosinophils % (A) 0 %; HCT 21.3 % (34.0-46.0); Hypochromasia Slight; Lymphocytes # (A) 0.7 k/uL (1.0-4.8); Lymphocytes % (A) 3 %; MCH 27.1 pg (25.0-35.0); MCHC 31.6 g/dL (31.0-37.0); MCV 85.9 fL (80.0-100.0); Mean Platelet Volume 7.1; Monocytes # (A) 0.5 k/uL (0-1.0); Monocytes % (A) 2 %; Neutrophils # (A) 22.3 k/uL (1.3-7.7); Neutrophils % (A) 94 %; Platelet Count 384 k/uL (150-450); Poikilocytosis Slight; RBC 2.48 m/uL (3.80-5.40); RDW 17.4 % (11.5-15.5); WBC 23.8 k/uL (3.8-10.6)
[2017-12-21 15:16] LABS: Albumin 1.7 g/dL (3.5-5.0); Calcium 6.8 mg/dL (8.4-10.2); Total Bilirubin 0.4 mg/dL (0.2-1.3); Total Protein 3.3 g/dL (6.3-8.2)
[2017-12-21 15:17] LABS: HGB 6.7 gm/dL (11.4-16.0)
--- NOTE | 2017-12-21 15:22 | PN ---
PROGRESS NOTE DATE OF SERVICE: 12/21/2017 This 72-year-old woman was admitted after CAD, CABG also had multiple medical issues. Patient had atrial fibrillation. Patient also had abdominal pain and colitis. The patient also underwent features of perforation and the patient underwent exploratory laparotomy, which showed necrosis of the transverse colon and right colon. The patient underwent right colectomy, transverse colectomy, takedown splenic flexure, ileostomy. The patient is mechanically sedated at this time. Dr. Salas and multiple consultants following the patient closely. PAST MEDICAL HISTORY: Reviewed. REVIEW OF SYSTEMS: Could not be taken as the patient mechanically ventilated and sedated. CURRENT MEDICATIONS: Reviewed and include: 1. Tylenol 1000 q.6h p.r.n. 2. DuoNeb q.i.d. and p.r.n. 3. Cordarone 200 mg p.o. b.i.d. 4. Anidulafungin 100 mg daily. 5. Vitamin C 500 mg. 6. Aspirin 81 mg daily. 7. Lipitor 40 mg. 8. Dulcolax 10 mg p.r.n. 9. Peridex 15 mL b.i.d. p.r.n. 10.Plavix 75 mg p.o. daily. 11.Vitamin B12 500 mcg. 12.Cymbalta 60 mg. 13.Iron sulfate 325 mg p.o. daily. 14.Heparin 5000 subcu q.h.s. 15.Dilaudid 1 mg q.2 p.r.n. 16.Synthroid 37.5 mg IV daily. 17.Melatonin. 18.Meropenem 2 g IV b.i.d. 19.Lopressor 5 mg IV q.6h. 20.P.r.n. protocol. 21.Norepinephrine. 22.Levophed drip. 23.Propofol drip. PHYSICAL EXAM: Patient is sedated. Pulse 70, blood pressure 144/73, respirations 20, temperature normal, pulse ox 98% on mechanical ventilation. Vent settings are noted on 40% FiO2 and 5 of PEEP. HEENT: Conjunctivae normal. Oral mucosa moist. NECK: No jugular venous distention. No carotid bruit. No lymph node enlargement. CARDIOVASCULAR: S1, S2. RESPIRATORY: Breath sounds diminished in the bases. Bilateral scattered rhonchi and crackles. ABDOMEN: Soft, status post surgery. LEGS: No edema, no swelling. NERVOUS SYSTEM: Higher functions as mentioned. Moves all four limbs. No focal motor deficits. LYMPHATICS: No lymphadenopathy in the neck, axillae, groin. SKIN: No ulcer, rashes or bleeding. LABS: At this time shows WBC with 13.2, hemoglobin is 8.4 and albumin is 1.9. ASSESSMENT: 1. Coronary artery disease, status post CABG. 2. Necrosis of the transverse colon with ischemic bowel with perforation of the right colon status post right colectomy and transverse colectomy and takedown splenic flexure and ileostomy. 3. Atrial fibrillation. 4. Change in mental status, metabolic encephalopathy, possibly medication induced earlier. 5. Abdominal pain. 6. Increased WBC, empiric antibiotics. 7. History of coronary artery disease. 8. Diabetes mellitus type 2. 9. Increased LFT. 10.Hypertension. 11.Hyperlipidemia. 12.History of degenerative joint disease. 13.Hypothyroidism. 14.Allergic rhinitis. 15.History of nicotine dependence. 16.Increased WBC. 17.History of anxiety and depression. 18.Urinary tract infection with E coli, present on admission. 19.Urinary retention. RECOMMENDATIONS AND DISCUSSION: I recommend to continue current medication, continue with monitoring and symptomatic treatment. Otherwise at this time I recommend continue with mechanical ventilation, continue symptomatic treatment. Continue with broad-spectrum IV antibiotics. Closely monitor. Further recommendations to follow. See orders for details. Follow with multiple consultants. See orders for further details. Monitor blood sugars closely. MMODL / IJN: [id number] /
[2017-12-21] MEDS ORDERED: POTASSIUM CHLORIDE 10 MEQ in WATER FOR INJECTION 1 100ML.BAG IVPB SCH (15:45)
[2017-12-21] MEDS ORDERED: POTASSIUM CHLORIDE 20 MEQ in WATER FOR INJECTION 1 100ML.BAG IVPB ONE (16:00)
--- NOTE | 2017-12-21 16:11 | P.PN ---
Subjective Progress Note Date: 12/21/17 On today's evaluation of a 12/18/2017 Carolyn is back to the intensive care unit. She is postop day #7 following her coronary artery bypass surgery. She got transferred because of an extensive liquidy/watery diarrhea which left her into a dehydrated state and causes some non-anion gap metabolic acidosis. Her bicarb level is down to 14. She had 3 additional liquidy bowel movements this morning. The patient was seen by general surgery. CAT scan of the abdomen was done raising the possibility of an underlying ischemic colitis. She was placed on accommodation Zosyn and vancomycin. No fever or chills. She also had gone into atrial fibrillation. The rate is controlled right now with metoprolol and amiodarone and the patient is also on IV heparin. She is complaining of pain throughout her chest and body mainly in the joints and she has been taken hydrocodone outpatient basis. I restarted her on [place] 5 every 6 hours for pain control pH is using incentive spirometer. She is on IV fluids and she'll be started on a bicarb drip. The patient's chest x-ray from today showed small bilateral pleural effusion and basilar atelectasis and left lung base. There is also artifact from external objects on the chest x-ray. The postoperative echocardiogram showed a preserved LV function with an ejection fraction of 50-55 %. No valvular abnormalities noted. On today's evaluation of 12/19/2017, the patient is awake and alert and sitting up on a chair. The diarrhea has subsided significantly. She only had liquidy loose bowel movement there was small amount this morning. Otherwise, the patient is was resuscitated IV fluids. The patient received a bicarb infusion yesterday and her serum bicarb normalizes and earlier this morning associated to a normal saline infusion at the rate of 75 mL an hour. Her urine output is around 20-25 mL an hour. The patient's creatinine is normal. BUN is down to 7. Vascular electrodes are all within normal limits and her bicarb level is normalized. No nausea. No vomiting. No abdominal pain. She is taking clear liquid diet. No chest pain. Chest x-ray shows some mild pulmonary vascular congestion and atelectatic changes in lung bases bilaterally. She is on room air oxygen. Sternum stable clean and intact. She has E. coli in the urine and she is on IV Zosyn. Vancomycin was discontinued. IV heparin was discontinued. Her current rhythm is sinus. On 12/20/2017 the patient developed some vague abdominal pain. This pain started approximately 4 AM in the morning. As mentioned earlier the patient is postop from coronary artery bypass surgery and she is postop day #8. The patient is currently in the intensive care unit. X-ray of the chest was done this morning and it showed free air under the diaphragm. This is consistent with pneumoperitoneum and the patient will need further investigation. Immediately the general surgeon was contacted and the patient had a CAT scan of the abdomen and it showed moderate pneumoperitoneum with site of the perforation i not identified although there was suspicion that maybe the distal stomach/duodenal area. The patient currently on IV Zosyn. No cervical leukocytosis. Urine output is dropped down to 20 mL an hour. Her white count from this morning's at 14.3. Patient be taken to the operating room for an expected laparotomy. No altered mentation. No cough or sputum production. No other complaints otherwise for now. On 12/21/2017 I'm seeing this patient for a follow-up. She is a critically ill female patient was taken to the operating room yesterday for an acute bowel perforation. The patient was found to have pneumoperitoneum and the patient was taken to the operating room and the patient underwent expiratory laparotomy and right colectomy and transverse colectomy and takedown of splenic flexure and diverticular colostomy. The patient intraoperatively was found to have necrosis of the transverse colon and the right colon. Postop, the patient was kept intubated and the patient was moved to the intensive care unit for further evaluation and management. Overnight the patient was given fluid aggressively. She was given IV albumin. She was given lactated Ringer solution and normal saline solution. She did drop her pressure and she had also to placed on pressors and she is currently on 3-4 mics of norepinephrine infusion to maintain a mean artery pressure above 65. This morning I give her another liter of lactated Ringer and nontender albumin 5% to bring her CVP above 12. Hemoglobin dropped down to 6.7. Her white count came up to 31.4 and subsequently dropped down to 23. This is expected as the patient had a bowel necrosis and intra-abdominal sepsis. Antibiotic dressings were done and the patient was placed on Merrem and Eraxis. Earlier this morning the patient was on assist-control mode of ventilation and was obvious that the patient was asynchronous and double stacking on a mechanical ventilator. This was occurring even while on 40 mics of Diprivan infusion. Based on this, necessary vent changes were done. The patient was air hungry and she was taken significantly high tidal volumes. I was able to bring the tidal volume of 600 and the rate of 18 with a FiO2 of 40% and a PEEP of 5. Chest x-ray from today showed that the patient had adequate expansion of both lungs. There is a left- sided pleural effusion and ET tube is around 3-4 cm above the al. The net fluid balance over the past 24 hours is +6 L in the urine output is adequate for now. The patient is afebrile. Objective - Vital Signs Vital signs: Vital Signs Temp 99.3 F 12/21/17 12:00 Pulse 72 12/21/17 15:00 Resp 18 12/21/17 15:00 BP 92/47 12/21/17 15:00 Pulse Ox 98 12/21/17 15:00 Intake & Output 12/20/17 12/21/17 12/21/17 18:59 06:59 18:59 Intake Total 2500 3661.779 3492.773 Output Total 760 340 325 Balance 1740 3321.779 3167.773 Weight 89.9 kg Intake: IV 2500 3299 2950 ACETAMINOPHEN IV (For NPO 100 ) 1,000 mg In Empty Bag 1 bag @ 400 mls/hr IVPB Q6HR [facility] Rx#:[id number] Albumin Human 25% 50 ml 50 250 In Empty Bag 1 bag @ 100 mls/hr IVPB ONCE ONE Rx#: [id number] Anidulafungin 200 mg In 200 Sodium Chloride 0.9% 200 ml @ 84 mls/hr IVPB ONCE ONE Rx#:[id number] Fluconazole in NaCl,Iso- 100 Osm 200 mg In Saline 1 100ml.bag @ 100 mls/hr IVPB DAILY [facility] Rx#: [id number] Lactated Ringers 1,000 ml 1000 @ 999 mls/hr IV .Q1H1M [facility] Rx#:[id number] Magnesium Sulfate-D5w Pmx 200 1 gm In Dextrose/Water 1 100ml.bag @ 100 mls/hr IVPB Q1H [facility] Rx#: [id number] Meropenem 2 gm In Sodium 100 Chloride 0.9% 100 ml @ 200 mls/hr IVPB Q12HR [facility] Rx#:[id number] Piperacillin-Tazobactam 3 50 .375 gm In Dextrose/Water 1 50ml.bag @ 12.5 mls/hr IVPB Q8HR [facility] Rx#: [id number] Sodium Chloride 0.9% 1, 900 1250 1000 000 ml @ 125 mls/hr IV . Q8H [facility] Rx#:[id number] Sodium Chloride 0.9% 1, 1999 000 ml @ 999 mls/hr IV . Q1H1M [facility] Rx#:[id number] Intake, IV Titration 52.779 302.773 Amount Norepinephrine 16 mg In 64.708 Sodium Chloride 0.9% 250 ml @ Titrate IV .Q0M [facility] Rx#:[id number] Propofol 1,000 mg In 52.779 238.065 Empty Bag 1 bag @ Titrate IV .Q0M [facility] Rx#: [id number] Oral 240 Blood Product 310 Rc As-1 Unit 310 [id number] Output: Urine 460 340 325 Stool 200 Estimated Blood Loss 100 Other: Voiding Method Indwelling Catheter Indwelling Catheter Indwelling Catheter # Voids 1 1 ABP, PAP, CO, CI - Last Documented Arterial Blood Pressure 108/47 Pulmonary Artery Pressure 4/4 Cardiac Output 4.5 Cardiac Index 2.5 - Exam No acute distress, oriented 3. No need for supplemental oxygen. She is able to stop on a chair. HEENT examination is grossly unremarkable. Mucous membranes are moist. No oral lesions. Neck supple. Full range of motion. No adenopathy thyromegaly or neck vein distention. Cardiovascular examination reveals irregular rhythm rate. S1-S2 normal. No S3 or S4. No discernible murmur noted. Heart sounds are distant. Sternum stable clean and intact and there is no evidence of any wound infection with dehiscence Lungs reveal mostly clear breath sounds. A few scattered rhonchi are noted. Breath sounds are equal bilaterally and there is reasonable air exchange. Abdomen mild diffuse abdominal tenderness, hypoactive bowel sounds, no rebound tenderness or guarding at this point in time. Extremities are intact. No cyanosis clubbing or edema. Skin Examination of the skin revealed no evidence of significant rashes, suspicious appearing nevi or other concerning lesions. Neurologic examination is brief but nonfocal. She is intubated with mechanical ventilator support. Currently sedated on propofol drip at 45 mcg/kg/m. she is well sedated and synchronous with the mechanical ventilator. - Constitutional General appearance: Present: cooperative, no acute distress, obese - Respiratory Details: Lung sounds are essentially clear throughout, diminished for bilateral bases. Respirations are symmetrical and nonlabored with mechanical ventilator support. The breath sounds are slightly diminished in left lung base. - Cardiovascular Details: Regular rhythm and rate. S1 and S2 present, negative for S3, gallop or murmur. Sternum is stable. Bedside telemetry showing normal sinus rhythm heart rate 85. Doppler posterior tibial pulses present bilaterally. Knee-high KURT hose and sequential compression devices in place to her bilateral lower extremities. No edema present. Right IJ triple lumen in place and functioning, current CVP 8 mmHg. - Gastrointestinal Gastrointestinal Comment(s): Abdomen is soft, and nondistended. Right lower quadrant abdominal ileostomy. OG tube in place draining green bile colored drainage. 200 mL output the last 8 hours. Absent bowel sounds. Liquid green stool 1 this a.m. the surgical wound is open and superior and inferior portion. Jadyn are placed in the midline. Bowel sounds are absent. - Genitourinary Genitourinary Comment(s): Almaguer catheter for accurate I&O. Draining clear noah urine. 250 mL output in the last 8 hours. - Integumentary Integumentary Comment(s): Skin is warm and dry. No clubbing or cyanosis present. Bilateral feet cool to touch. Midline sternal incision clean dry and approximated. No drainage or redness present. Left leg EVH site clean dry and approximated. No drainage or redness present. Ecchymotic area to her left thigh, soft to touch. Midline abdominal incision clean dry and approximated. No drainage or redness present. Right lower quadrant abdominal ileostomy. - Neurologic Neurologic Comment(s): Currently sedated on propofol Moving all 4 extremities appropriately with verbal stimuli. Following some simple commands. - Musculoskeletal Musculoskeletal: Present: generalized weakness, strength equal bilaterally - Labs CBC & Chem 7: 12/21/17 14:48 12/21/17 14:15 Labs: Abnormal Lab Results - Last 24 Hours (Table) 12/20/17 12/20/17 12/20/17 Range/Units 11:26 18:09 19:35 WBC 18.0 H (3.8-10.6) k/uL RBC 2.79 L (3.80-5.40) m/uL Hgb 7.5 L (11.4-16.0) gm/dL Hct 24.0 L (34.0-46.0) % RDW 16.6 H (11.5-15.5) % Plt Count 464 H (150-450) k/uL Neutrophils # (1.3-7.7) k/uL Lymphocytes # (1.0-4.8) k/uL ABG pH 7.30 L (7.35-7.45) ABG pCO2 (35-45) mmHg ABG pO2 233 H (83-108) mmHg ABG HCO3 20 L (21-25) mmol/L ABG Total CO2 (19-24) mmol/L ABG O2 Saturation 99.7 H (94-97) % Sodium (137-145) mmol/L Chloride (98-107) mmol/L Carbon Dioxide (22-30) mmol/L Glucose (74-99) mg/dL POC Glucose (mg/dL) (75-99) mg/dL Calcium (8.4-10.2) mg/dL Magnesium (1.6-2.3) mg/dL Total Protein (6.3-8.2) g/dL Albumin (3.5-5.0) g/dL Crossmatch See Detail 12/20/17 12/20/17 12/21/17 Range/Units 23:08 23:08 04:30 WBC 27.5 H* 31.4 H* (3.8-10.6) k/uL RBC 3.04 L 3.12 L (3.80-5.40) m/uL Hgb 8.4 L 8.4 L (11.4-16.0) gm/dL Hct 26.3 L 26.9 L (34.0-46.0) % RDW 16.2 H 17.0 H (11.5-15.5) % Plt Count 481 H (150-450) k/uL Neutrophils # 29.6 H (1.3-7.7) k/uL Lymphocytes # 0.9 L (1.0-4.8) k/uL ABG pH (7.35-7.45) ABG pCO2 (35-45) mmHg ABG pO2 (83-108) mmHg ABG HCO3 (21-25) mmol/L ABG Total CO2 (19-24) mmol/L ABG O2 Saturation (94-97) % Sodium 136 L (137-145) mmol/L Chloride 111 H (98-107) mmol/L Carbon Dioxide 16 L (22-30) mmol/L Glucose (74-99) mg/dL POC Glucose (mg/dL) (75-99) mg/dL Calcium 6.9 L (8.4-10.2) mg/dL Magnesium 1.5 L (1.6-2.3) mg/dL Total Protein (6.3-8.2) g/dL Albumin (3.5-5.0) g/dL Crossmatch 12/21/17 12/21/17 12/21/17 Range/Units 04:30 04:54 12:09 WBC (3.8-10.6) k/uL RBC (3.80-5.40) m/uL Hgb (11.4-16.0) gm/dL Hct (34.0-46.0) % RDW (11.5-15.5) % Plt Count (150-450) k/uL Neutrophils # (1.3-7.7) k/uL Lymphocytes # (1.0-4.8) k/uL ABG pH (7.35-7.45) ABG pCO2 28 L (35-45) mmHg ABG pO2 (83-108) mmHg ABG HCO3 17 L (21-25) mmol/L ABG Total CO2 18 L (19-24) mmol/L ABG O2 Saturation 98.3 H (94-97) % Sodium 135 L (137-145) mmol/L Chloride 110 H (98-107) mmol/L Carbon Dioxide 17 L (22-30) mmol/L Glucose 106 H (74-99) mg/dL POC Glucose (mg/dL) 135 H (75-99) mg/dL Calcium 7.1 L (8.4-10.2) mg/dL Magnesium (1.6-2.3) mg/dL Total Protein 3.7 L (6.3-8.2) g/dL Albumin 1.9 L (3.5-5.0) g/dL Crossmatch 12/21/17 12/21/17 Range/Units 14:15 14:48 WBC 23.8 H (3.8-10.6) k/uL RBC 2.48 L (3.80-5.40) m/uL Hgb 6.7 L* D (11.4-16.0) gm/dL Hct 21.3 L (34.0-46.0) % RDW 17.4 H (11.5-15.5) % Plt Count (150-450) k/uL Neutrophils # 22.3 H (1.3-7.7) k/uL Lymphocytes # 0.7 L (1.0-4.8) k/uL ABG pH (7.35-7.45) ABG pCO2 (35-45) mmHg ABG pO2 (83-108) mmHg ABG HCO3 (21-25) mmol/L ABG Total CO2 (19-24) mmol/L ABG O2 Saturation (94-97) % Sodium 135 L (137-145) mmol/L Chloride 112 H (98-107) mmol/L Carbon Dioxide 16 L (22-30) mmol/L Glucose 122 H (74-99) mg/dL POC Glucose (mg/dL) (75-99) mg/dL Calcium 6.8 L (8.4-10.2) mg/dL Magnesium (1.6-2.3) mg/dL Total Protein 3.3 L (6.3-8.2) g/dL Albumin 1.7 L (3.5-5.0) g/dL Crossmatch Assessment and Plan Plan: #1. Multivessel coronary artery disease, involving left main coronary artery. And is awaiting coronary artery bypass grafting and surgery was done 12/11/2017 18 and the patient is postop day #10 #2. Acute perforated viscus with necrosis of the transverse and right colon and the patient is status post right colectomy, transverse colectomy and takedown of splenic flexure with diabetic ileostomy. Estimated blood loss was 100 mL and the patient is postop day #1. #3. Acute hypoxic respiratory failure secondary to above. Patient is currently intubated on a mechanical ventilator. #4. Acute hypotension, likely secondary to intra-abdominal source of sepsis as the patient bowel perforation/necrosis. The patient was aggressively resuscitated IV fluids. The patient is currently on a combination of IV Merrem and the patient is also on Eraxis #5. Atrial fibrillation, and expected outcome of surgery , back to sinus #6. Peripheral vascular disease #7. 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 Hypothyroidism #9. Diabetes mellitus type 2 #10. Chronic low back pain #11. Depression #12 obesity with a BMI of 34.3 #13 leukocytosis #14 anemia and expected outcome of surgery, hemoglobin is down to 6.7 probably somewhat dilutional as the patient was aggressively resuscitated IV fluids. #15 hyperlipidemia #16 leukocytosis improving and the white cell count peaked at 31.4 is currently down to 23 Plan Continue vent support and necessary vent changes were done. The patient was resuscitated IV fluids including lactated Ringer and colloids and crystalloids and the patient is on low dose of norepinephrine infusion currently running at 2 g per minute. We'll maintain him ERT a pressure above 65. Continue vent support. Keep the patient sedated. Necessary vent changes were done. Keep same antibiotic coverage. Monitor CVP. The patient is sedated. The patient's critically ill. General surgeries on the case. Cardiac thoracic surgery is on the case. Critical care services on the case. Normal saline infusion at 1 25 mL an hour. Monitor urine output. Will follow make further recommendations based on her progress. This examination was done and more than 30 minutes. Time with Patient: Greater than 30
[2017-12-21 18:24] LABS: Glucose,Whole Blood 100 mg/dL (75-99)
[2017-12-21 19:16] LABS: Anisocytosis Slight; Basophils # (A) 0.1 k/uL (0-0.2); Basophils % (A) 0 %; Eosinophils # (A) 0.2 k/uL (0-0.7); Eosinophils % (A) 1 %; HCT 24.9 % (34.0-46.0); HGB 7.9 gm/dL (11.4-16.0); Hypochromasia Slight; Lymphocytes # (A) 0.8 k/uL (1.0-4.8); Lymphocytes % (A) 3 %; MCH 27.1 pg (25.0-35.0); MCHC 31.7 g/dL (31.0-37.0); MCV 85.5 fL (80.0-100.0); Mean Platelet Volume 6.7; Monocytes # (A) 0.5 k/uL (0-1.0); Monocytes % (A) 2 %; Neutrophils # (A) 22.7 k/uL (1.3-7.7); Neutrophils % (A) 93 %; Platelet Count 367 k/uL (150-450); Poikilocytosis Slight; RBC 2.92 m/uL (3.80-5.40); RDW 16.8 % (11.5-15.5); WBC 24.5 k/uL (3.8-10.6)
[2017-12-21] MEDS: MELATONIN 3 MG TABLET PO SCH (19:52)
--- NOTE | 2017-12-21 22:55 | P.PN ---
Subjective Progress Note Date: 12/21/17 This is a 72-year-old female patient who initially underwent a stress test that was positive followed by a heart catheterization that showed significant disease in the left main, mid LAD and ostial circumflex. She then underwent an urgent CABG 4 vessel on December 11. Patient seems to have been recovering well until yesterday. She was noted to develop a fever of 102.6, lactic acid was 2.3 and also liver enzymes elevated. She had been treated for E. coli urinary tract infection that was present on admission with Rocephin. Her antibiotics were then changed to Zosyn and vancomycin. Patient also had some hypersomnolence and confusion yesterday for which her narcotics were changed from oxycodone which she chronically takes for back pain and switched to Stoddard every 6, IV Tylenol and Toradol and patient continues to have significant back pain. She denies chest pain, shortness of breath, nausea or vomiting. She denies any diarrhea. She does have decreased appetite which is been going on since admission. She states that she feels better from yesterday and recognizes that she was lethargic yesterday. Today. she has been up for shower and has had a bowel movement. Patient had low urine output yesterday and received a dose of Lasix. She had a CAT scan of the brain that showed cerebral atrophy and chronic small vessel ischemia. No acute intracranial process. She states that she was coughing a lot this morning but no denies shortness of breath. Chest x-ray from this morning shows minimal pulmonary vascular congestion cannot be exaggerated by low lung volumes in addition to persistent unchanged retrocardiac airspace disease, likely atelectasis and trace pleural effusions. Patient was using incentive spirometer 2000 mL she yesterday. She has had no significant wound concerns. Chest tubes and Almaguer are out. Patient denies any burning or pain with urination. . Now back in the intensive care unit she's had some abdominal pain and with worsening of her status including lactic acidosis to was concerns to ischemic colitis. She has been seen by surgery is being closely followed. She is on antimicrobial therapy with piperacillin tazobactam and vancomycin which would give coverage for ischemic colitis. Severe back pain is modestly controlled at this time. Patient is given a fluid bolus it appears that her lactic acid has dropped from 3.5-1.0. Fluids were also changed from lactated Ringer's to D5/ 0.45% NaCl with 20 mEq of KCl 12/18/2017 patient is sitting up in the chair looking considerably better. She has some clear liquids that she is able to ingest. Abdominal pain is improved. She is not having further fever or hypotension. Lactic acid is improved 12/21/2017 the patient had a significant change of her status and was found evidence of a perforated viscus and consequently the operating room yesterdaywhere exploratory laparotomy was performed, there is evidence of necrosis the transverse colon and of the right colon and consequently colectomy was performed in ileostomy was placed. Postoperatively the patient is now having some improvement. Vasopressor therapy has been held. Oxygenation is stable and she has no new complication. Objective - Vital Signs Vital signs: Vital Signs Temp 99 F 12/21/17 20:00 Pulse 73 12/21/17 21:00 Resp 18 12/21/17 21:00 BP 102/51 12/21/17 20:00 Pulse Ox 100 12/21/17 21:00 Intake & Output 12/21/17 12/21/17 12/22/17 06:59 18:59 06:59 Intake Total 3661.779 5177.773 593 Output Total 340 1030 320 Balance 3321.779 4147.773 273 Weight 89.9 kg Intake: IV 3299 4325 593 ACETAMINOPHEN IV (For NPO 100 ) 1,000 mg In Empty Bag 1 bag @ 400 mls/hr IVPB Q6HR [facility] Rx#:[id number] Albumin Human 25% 50 ml 50 250 In Empty Bag 1 bag @ 100 mls/hr IVPB ONCE ONE Rx#: [id number] Anidulafungin 200 mg In 200 Sodium Chloride 0.9% 200 ml @ 84 mls/hr IVPB ONCE ONE Rx#:[id number] Fluconazole in NaCl,Iso- 100 Osm 200 mg In Saline 1 100ml.bag @ 100 mls/hr IVPB DAILY [facility] Rx#: [id number] Lactated Ringers 1,000 ml 2000 @ 999 mls/hr IV .Q1H1M [facility] Rx#:[id number] Magnesium Sulfate-D5w Pmx 200 1 gm In Dextrose/Water 1 100ml.bag @ 100 mls/hr IVPB Q1H [facility] Rx#: [id number] Meropenem 2 gm In Sodium 100 100 Chloride 0.9% 100 ml @ 200 mls/hr IVPB Q12HR [facility] Rx#:[id number] Potassium Chloride 10 meq 100 In Water For Injection 1 100ml.bag @ 100 mls/hr IVPB Q1H [facility] Rx#: [id number] Pressure Bags 18 Sodium Chloride 0.9% 1, 1250 1375 375 000 ml @ 125 mls/hr IV . Q8H [facility] Rx#:[id number] Sodium Chloride 0.9% 1, 1999 000 ml @ 999 mls/hr IV . Q1H1M [facility] Rx#:[id number] Intake, IV Titration 52.779 302.773 Amount Norepinephrine 16 mg In 64.708 Sodium Chloride 0.9% 250 ml @ Titrate IV .Q0M [facility] Rx#:[id number] Propofol 1,000 mg In 52.779 238.065 Empty Bag 1 bag @ Titrate IV .Q0M [facility] Rx#: [id number] Oral 240 Blood Product 310 310 Rc As-1 Unit 310 [id number] Rc Pheresis 2 As3 Unit 310 [id number] Output: Gastric Drainage 300 Urine 340 430 120 Stool 300 200 Other: Voiding Method Indwelling Catheter Indwelling Catheter Indwelling Catheter # Voids 1 ABP, PAP, CO, CI - Last Documented Arterial Blood Pressure 117/50 Pulmonary Artery Pressure 4/4 Cardiac Output 4.5 Cardiac Index 2.5 - Exam Gen: This is a 72-year-old female. supine remains intubated and mechanically ventilated is lightly sedated HEENT: Head is atraumatic, normocephalic. Pupils equal, round. Sclerae is anicteric. Mucous members of the mouth are moist. NECK: Supple. No JVD. No lymphadenopathy. No thyromegaly. LUNGS: Clear to auscultation. No wheezes or rhonchi. No intercostal retractions. HEART: Regular rate and rhythm. No murmur. Sternal wound is intact. No significant drainage, erythema. ABDOMEN: recent surgery ileostomies in place large amount of bilious material is noted. Bowel sounds are quiet. EXTREMITIES: No pedal edema. Wound and left lower extremity shows no signs of infection. No drainage, significant erythema or edema. NEUROLOGICAL: Patient is arousable. Skin the surgical site the chest wall is intact without erythema crepitance or fluctuance vein harvest site is intact.abdominal incision has serous drainage. - Labs CBC & Chem 7: 12/21/17 19:05 12/21/17 19:05 Labs: Abnormal Lab Results - Last 24 Hours (Table) 12/20/17 12/20/17 12/20/17 Range/Units 11:26 23:08 23:08 WBC 27.5 H* (3.8-10.6) k/uL RBC 3.04 L (3.80-5.40) m/uL Hgb 8.4 L (11.4-16.0) gm/dL Hct 26.3 L (34.0-46.0) % RDW 16.2 H (11.5-15.5) % Plt Count (150-450) k/uL Neutrophils # (1.3-7.7) k/uL Lymphocytes # (1.0-4.8) k/uL ABG pCO2 (35-45) mmHg ABG HCO3 (21-25) mmol/L ABG Total CO2 (19-24) mmol/L ABG O2 Saturation (94-97) % Sodium 136 L (137-145) mmol/L Chloride 111 H (98-107) mmol/L Carbon Dioxide 16 L (22-30) mmol/L Glucose (74-99) mg/dL POC Glucose (mg/dL) (75-99) mg/dL Calcium 6.9 L (8.4-10.2) mg/dL Magnesium 1.5 L (1.6-2.3) mg/dL Total Protein (6.3-8.2) g/dL Albumin (3.5-5.0) g/dL Crossmatch See Detail 12/21/17 12/21/17 12/21/17 Range/Units 04:30 04:30 04:54 WBC 31.4 H* (3.8-10.6) k/uL RBC 3.12 L (3.80-5.40) m/uL Hgb 8.4 L (11.4-16.0) gm/dL Hct 26.9 L (34.0-46.0) % RDW 17.0 H (11.5-15.5) % Plt Count 481 H (150-450) k/uL Neutrophils # 29.6 H (1.3-7.7) k/uL Lymphocytes # 0.9 L (1.0-4.8) k/uL ABG pCO2 28 L (35-45) mmHg ABG HCO3 17 L (21-25) mmol/L ABG Total CO2 18 L (19-24) mmol/L ABG O2 Saturation 98.3 H (94-97) % Sodium 135 L (137-145) mmol/L Chloride 110 H (98-107) mmol/L Carbon Dioxide 17 L (22-30) mmol/L Glucose 106 H (74-99) mg/dL POC Glucose (mg/dL) (75-99) mg/dL Calcium 7.1 L (8.4-10.2) mg/dL Magnesium (1.6-2.3) mg/dL Total Protein 3.7 L (6.3-8.2) g/dL Albumin 1.9 L (3.5-5.0) g/dL Crossmatch 12/21/17 12/21/17 12/21/17 Range/Units 12:09 14:15 14:48 WBC 23.8 H (3.8-10.6) k/uL RBC 2.48 L (3.80-5.40) m/uL Hgb 6.7 L* D (11.4-16.0) gm/dL Hct 21.3 L (34.0-46.0) % RDW 17.4 H (11.5-15.5) % Plt Count (150-450) k/uL Neutrophils # 22.3 H (1.3-7.7) k/uL Lymphocytes # 0.7 L (1.0-4.8) k/uL ABG pCO2 (35-45) mmHg ABG HCO3 (21-25) mmol/L ABG Total CO2 (19-24) mmol/L ABG O2 Saturation (94-97) % Sodium 135 L (137-145) mmol/L Chloride 112 H (98-107) mmol/L Carbon Dioxide 16 L (22-30) mmol/L Glucose 122 H (74-99) mg/dL POC Glucose (mg/dL) 135 H (75-99) mg/dL Calcium 6.8 L (8.4-10.2) mg/dL Magnesium (1.6-2.3) mg/dL Total Protein 3.3 L (6.3-8.2) g/dL Albumin 1.7 L (3.5-5.0) g/dL Crossmatch 12/21/17 12/21/17 Range/Units 18: 19:05 WBC 24.5 H (3.8-10.6) k/uL RBC 2.92 L (3.80-5.40) m/uL Hgb 7.9 L (11.4-16.0) gm/dL Hct 24.9 L (34.0-46.0) % RDW 16.8 H (11.5-15.5) % Plt Count (150-450) k/uL Neutrophils # 22.7 H (1.3-7.7) k/uL Lymphocytes # 0.8 L (1.0-4.8) k/uL ABG pCO2 (35-45) mmHg ABG HCO3 (21-25) mmol/L ABG Total CO2 (19-24) mmol/L ABG O2 Saturation (94-97) % Sodium (137-145) mmol/L Chloride (98-107) mmol/L Carbon Dioxide (22-30) mmol/L Glucose (74-99) mg/dL POC Glucose (mg/dL) 100 H (75-99) mg/dL Calcium (8.4-10.2) mg/dL Magnesium (1.6-2.3) mg/dL Total Protein (6.3-8.2) g/dL Albumin (3.5-5.0) g/dL Crossmatch Laboratory Results WBC 24.5 k/uL (3.8-10.6) H 12/21/17 19:05 RBC 2.92 m/uL (3.80-5.40) L 12/21/17 19:05 Hgb 7.9 gm/dL (11.4-16.0) L 12/21/17 19:05 Hct 24.9 % (34.0-46.0) L 12/21/17 19:05 MCV 85.5 fL (80.0-100.0) 12/21/17 19:05 MCH 27.1 pg (25.0-35.0) 12/21/17 19:05 MCHC 31.7 g/dL (31.0-37.0) 12/21/17 19:05 RDW 16.8 % (11.5-15.5) H 12/21/17 19:05 Plt Count 367 k/uL (150-450) 12/21/17 19:05 Neutrophils % 93 % 12/21/17 19:05 Neutrophils % (Manual) 75 % 12/20/17 04:30 Band Neutrophils % 7 % 12/20/17 04:30 Lymphocytes % 3 % 12/21/17 19:05 Lymphocytes % (Manual) 7 % 12/20/17 04:30 Monocytes % 2 % 12/21/17 19:05 Monocytes % (Manual) 5 % 12/20/17 04:30 Eosinophils % 1 % 12/21/17 19:05 Eosinophils % (Manual) 2 % 12/20/17 04:30 Basophils % 0 % 12/21/17 19:05 Metamyelocytes % 3 % 12/20/17 04:30 Myelocytes % 3 % 12/20/17 04:30 Neutrophils # 22.7 k/uL (1.3-7.7) H 12/21/17 19:05 Neutrophils # (Manual) 11.70 k/uL (1.3-7.7) H 12/20/17 04:30 Lymphocytes # 0.8 k/uL (1.0-4.8) L 12/21/17 19:05 Lymphocytes # (Manual) 1.00 k/uL (1.0-4.8) 12/20/17 04:30 Monocytes # 0.5 k/uL (0-1.0) 12/21/17 19:05 Monocytes # (Manual) 0.72 k/uL (0-1.0) 12/20/17 04:30 Eosinophils # 0.2 k/uL (0-0.7) 12/21/17 19:05 Eosinophils # (Manual) 0.29 k/uL (0-0.7) 12/20/17 04:30 Basophils # 0.1 k/uL (0-0.2) 12/21/17 19:05 Metamyelocytes # (Man) 0.43 k/uL (0) H 12/20/17 04:30 Myelocytes # (Manual) 0.43 k/uL (0) H 12/20/17 04:30 Nucleated RBCs 0 /100 WBC (0-0) 12/20/17 04:30 Manual Slide Review Performed 12/20/17 04:30 Toxic Granulation Present 12/20/17 04:30 Large Platelets Present 12/18/17 04:30 RBC Morphology Normal 12/11/17 16:55 Polychromasia Present 12/20/17 04:30 Hypochromasia Slight 12/21/17 19:05 Poikilocytosis Slight 12/21/17 19:05 Poikilocytosis (manual Present 12/18/17 04:30 Anisocytosis Slight 12/21/17 19:05 PT 10.1 sec (9.0-12.0) 12/15/17 23:07 INR 1.0 (<1.2) 12/15/17 23:07 APTT 49.0 sec (22.0-30.0) H 12/19/17 04:14 Sample Site [place] 12/21/17 04:54 ABG pH 7.39 (7.35-7.45) 12/21/17 04:54 ABG pCO2 28 mmHg (35-45) L 12/21/17 04:54 ABG pO2 96 mmHg (83-108) 12/21/17 04:54 ABG HCO3 17 mmol/L (21-25) L 12/21/17 04:54 ABG Total CO2 18 mmol/L (19-24) L 12/21/17 04:54 ABG O2 Saturation 98.3 % (94-97) H 12/21/17 04:54 ABG Base Excess -8.0 mmol/L 12/21/17 04:54 ABG Hematocrit 20 % (34.0-46.0) L* 12/11/17 12:13 [place] Test Yes 12/21/17 04:54 ABG Sodium 136 mmol/L (135-146) 12/11/17 12:13 ABG Potassium 4.4 mmol/L (3.4-4.5) 12/11/17 12:13 ABG Ionized Calcium 4.2 mg/dL (4.5-5.3) L 12/11/17 12:13 ABG Glucose 204 mg/dL (75-99) H 12/11/17 12:13 ABG Lactic Acid 0.9 mmol/L (0.5-1.6) 12/21/17 04:30 Hemoglobin 6.4 gm/dL (11.4-16.0) L* 12/11/17 12:13 FiO2 40 % 12/21/17 04:54 Sodium 135 mmol/L (137-145) L 12/21/17 14:15 Potassium 3.8 mmol/L (3.5-5.1) 12/21/17 19:05 Chloride 112 mmol/L (98-107) H 12/21/17 14:15 Carbon Dioxide 16 mmol/L (22-30) L 12/21/17 14:15 Anion Gap 7 mmol/L 12/21/17 14:15 BUN 12 mg/dL (7-17) 12/21/17 14:15 Creatinine 0.90 mg/dL (0.52-1.04) 12/21/17 14:15 Est GFR (CKD-EPI)AfAm 75 (>60 ml/min/1.73 sqM) 12/21/17 14:15 Est GFR (CKD-EPI)NonAf 65 (>60 ml/min/1.73 sqM) 12/21/17 14:15 Glucose 122 mg/dL (74-99) H 12/21/17 14:15 POC Glucose (mg/dL) 100 mg/dL (75-99) H 12/21/17 18:22 POC Glu Manager [employer] ID Derek Sellers 12/21/17 18:[address] Glu mg/dL 186 12/08/17 06:55 Hemoglobin A1c 8.1 % (4.0-6.0) H 12/08/17 06:55 Lactic Ac Sepsis Rflx Y 12/15/17 10:17 Plasma Lactic Acid [place] 1.4 mmol/L (0.7-2.0) 12/20/17 09:21 Calcium 6.8 mg/dL (8.4-10.2) L 12/21/17 14:15 Ionized Calcium Adiel 4.6 mg/dL (4.5-5.3) 12/21/17 14:15 Phosphorus 3.6 mg/dL (2.5-4.5) 12/21/17 14:15 Magnesium 1.9 mg/dL (1.6-2.3) 12/21/17 04:30 Total Bilirubin 0.4 mg/dL (0.2-1.3) 12/21/17 14:15 AST 15 U/L (14-36) 12/21/17 14:15 ALT 30 U/L (9-52) 12/21/17 14:15 Alkaline Phosphatase 94 U/L (38-126) 12/21/17 14:15 Total Protein 3.3 g/dL (6.3-8.2) L 12/21/17 14:15 Albumin 1.7 g/dL (3.5-5.0) L 12/21/17 14:15 Triglycerides 89 mg/dL (<150) 12/08/17 06:55 Cholesterol 129 mg/dL (<200) 12/08/17 06:55 LDL Cholesterol, Calc 45 mg/dL (0-99) 12/08/17 06:55 HDL Cholesterol 66 mg/dL (40-60) H 12/08/17 06:55 Amylase <30 U/L (30-110) L 12/14/17 15:37 Lipase 25 U/L (23-300) 12/14/17 15:37 TSH 2.940 mIU/L (0.465-4.680) 12/08/17 06:55 Arterial Blood Potassium 4.4 mmol/L (3.4-4.5) 12/11/17 12:13 Arterial Blood Glucose 204 mg/dL (75-99) H 12/11/17 12:13 Urine Color Yellow 12/08/17 12:00 Urine Appearance Cloudy (Clear) H 12/08/17 12:00 Urine pH 7.5 (5.0-8.0) 12/08/17 12:00 Ur Specific [place] 1.044 (1.001-1.035) H 12/08/17 12:00 Urine Protein Negative (Negative) 12/08/17 12:00 Urine Glucose (UA) Negative (Negative) 12/08/17 12:00 Urine Ketones Negative (Negative) 12/08/17 12:00 Urine Blood Moderate (Negative) H 12/08/17 12:00 Urine Nitrite Negative (Negative) 12/08/17 12:00 Urine Bilirubin Negative (Negative) 12/08/17 12:00 Urine Urobilinogen <2.0 mg/dL (<2.0) 12/08/17 12:00 Ur Leukocyte Esterase Small (Negative) H 12/08/17 12:00 Urine RBC 2 /hpf (0-5) 12/08/17 12:00 Urine WBC 3 /hpf (0-5) 12/08/17 12:00 Ur Squamous Epith Cells 1 /hpf (0-4) 12/08/17 12:00 Urine Bacteria Occasional /hpf (None) H 12/08/17 12:00 Urine Mucus Rare /hpf (None) H 12/08/17 12:00 Stool Occult Blood Positive (Negative) H 12/16/17 04:45 Stl Cryptosporidium Ag Negative (Negative) 12/15/17 14:15 Stool Giardia Source Stool 12/15/17 14:15 Stl Giardia Antigen Negative (Negative) 12/15/17 14:15 Vancomycin Trough 17.7 ug/mL 12/16/17 08:33 C. difficile (EIA) Intrp Negative (Negative) 12/16/17 10:35 Hepatitis A IgM Ab Non-Reactive (Non-Reactive) 12/08/17 06:55 Hep Bs Antigen Non-Reactive (Non-Reactive) 12/08/17 06:55 Hep B Core IgM Ab Non-Reactive (Non-Reactive) 12/08/17 06:55 Hep C IgG Ab Non-Reactive (Non-Reactive) 12/08/17 06:55 Blood Type B Positive 12/20/17 11:26 Blood Type Confirm B Positive 12/10/17 10:21 Blood Type Recheck No 12/20/17 11:26 Antibody Screen NEGATIVE 12/20/17 11:26 Crossmatch See Detail 12/20/17 11:26 Transfuse Platelets 12/11/17 12/10/17 05:38 Spec Expiration Date 12/23/2017232512/20/17 11:26 Microbiology 12/13/17 22:12 Blood Blood Culture - Final No Growth after 144 hours 12/15/17 14:15 Stool Stool Culture - Final 12/12/17 17:00 Urine,Catheterized Urine Culture - Final 12/08/17 12:00 Urine,Clean Catch Urine Culture - Final Escherichia coli 12/08/17 12:00 Nasal Swab Nasal Screen MRSA/MSSA - Final Assessment and Plan (1) E. coli sepsis Narrative/Plan: 72 year old woman with history of CAD failed stress test now s/p CABG and was progressing but developed fever to 102. Found to have UTI and is now improving. He doesn't history of chronic back pain been of some contention over the last day because of excess sedation from her pain medications. She currently is on minimal premedication with orders to ensure that she is at least sitting up and getting some ambulation. Her shortness of breath is definitely improved her chest is without significant pain. She does have a history of urinary tract infections in the past, since the Almaguer is out she has some minimal discomfort but does not feel miserable. She's had difficulty with incontinence since the Almaguer has been removed, bladder scan was performed with only 200 mL noted. She does have a urine culture with Escherichia coli that is resistant to quinolone therapy. With her fever the antibiotic therapy was enhance Zosyn and vancomycin. Sternal wound does not appear to be infected at the moment does not seem to have pneumonia. 12/15/2017 reveals the patient to have a change of her status in that she developed abdominal pain as well as worsening of her status. This concerns to ischemic colitis and she was moved to the intensive care unit. She's been seen by general surgery. It is being monitored. She had worsening lactic acidosis is now showing improvement after fluid challenge. She is not having chest pain and her shortness of breath continues to improve. Blood cultures are negative but urine culture did have E. coli years that she does have significant underlying infection in the urinary system. Treatment has been with Zosyn which should also cover ischemic colitis at that is occurring at this time. There are concerns to bowel compromise possibly for microemboli in the postoperative time frame. With this heparin has been started. Cultures are process and she'll be monitored. Her significant leukocytosis showing some slight improvement. 12/18/2017 the patient is having some improvement. She is not having as much pain and is able to tolerate some oral intake with clear liquids and has had some flatus. Abdominal pain is steadily improved and overall feels better. Leukocytosis is trending to improvement. X-ray shows evidence of some worsening of the hilar edema.there are no new positive cultures on the E. coli has been isolated. Antibiotic therapy with Zosyn to complete 7 days of therapy for her E. coli urinary tract infection. Surgery is following for the transient ischemic colitis she's been anticoagulated, and final plans are being developed as far as her long-term anticoagulation. The lactic acidosis completely resolved. December 21 2017 after the patient had a major change in her statusand was found evidence of ischemic colitis in the transverse and right colon and underwent colectomy and ileostomy placement. She's now having some improvement in her vasopressor therapy has now been put on hold with resolution of the hypotension. Patient seems to be comfortable. With her significant change of status antimicrobial therapy was migrated to meropenem and Eraxis pending culture results.she has a persistent leukocytosis related to the current sepsis which is showing some improvement. She did have profound anemia and was transfused and seems to be stable at this time. No Evidence of any new acute bleeding. Status: Acute Code(s): A41.51 - SEPSIS DUE TO ESCHERICHIA COLI [E. COLI] SNOMED Code(s): 762901484 (2) Urinary tract infection Current Visit: Yes Status: Acute Code(s): N39.0 - URINARY TRACT INFECTION, SITE NOT SPECIFIED SNOMED Code(s): 63373532 (3) Coronary artery disease involving left main coronary artery Current Visit: Yes Status: Chronic Code(s): I25.10 - ATHSCL HEART DISEASE OF [place] CORONARY ARTERY W/O ANG PCTRS SNOMED Code(s): 792152175 (4) Fever Current Visit: Yes Status: Acute Code(s): R50.9 - FEVER, UNSPECIFIED SNOMED Code(s): 262442667
[2017-12-21 23:33] LABS: Glucose,Whole Blood 113 mg/dL (75-99)
[2017-12-22] MEDS: HEPARIN SODIUM,PORCINE 5,000 UNIT/ML 1 ML VIAL SQ SCH ×4 (00:10→23:57)
[2017-12-22] MEDS: METOPROLOL TARTRATE 5 MG/5 ML VIAL IVP SCH ×6 (00:10→23:57)
[2017-12-22] MEDS: ACETAMINOPHEN IV (For NPO) 1,000 MG in EMPTY BAG 1 BAG IVPB SCH ×2 (00:10→06:59)
[2017-12-22 04:14] LABS: ABG Base Excess -7.6 mmol/L; ABG HCO3 17 mmol/L (21-25); ABG PCO2 26 mmHg (35-45); ABG PH 7.42 (7.35-7.45); ABG PO2 105 mmHg (83-108); ABG TCO2 18 mmol/L (19-24)
[2017-12-22 05:00] LABS: Albumin 1.8 g/dL (3.5-5.0); Calcium 7.3 mg/dL (8.4-10.2); Magnesium 2.4 mg/dL (1.6-2.3); Phosphorus 3.6 mg/dL (2.5-4.5); Potassium 3.8 mmol/L (3.5-5.1); Total Bilirubin 0.4 mg/dL (0.2-1.3); Total Protein 3.6 g/dL (6.3-8.2)
[2017-12-22 05:10] LABS: Anisocytosis Slight; Basophils % (A) 0 %; Eosinophils # (A) 0.1 k/uL (0-0.7); Eosinophils % (A) 0 %; HCT 24.9 % (34.0-46.0); Hypochromasia Slight; Lymphocytes # (A) 0.6 k/uL (1.0-4.8); Lymphocytes % (A) 2 %; MCH 27.7 pg (25.0-35.0); MCHC 32.1 g/dL (31.0-37.0); MCV 86.2 fL (80.0-100.0); Mean Platelet Volume 7.3; Monocytes # (A) 0.4 k/uL (0-1.0); Monocytes % (A) 2 %; Neutrophils # (A) 23.9 k/uL (1.3-7.7); Neutrophils % (A) 95 %; Platelet Count 391 k/uL (150-450); Poikilocytosis Slight; RBC 2.89 m/uL (3.80-5.40); RDW 16.8 % (11.5-15.5)
[2017-12-22] MEDS: INSULIN ASPART 100 UNIT/ML 1 ML 10 ML VIAL SQ SCH ×4 (05:13→23:57)
[2017-12-22 05:16] LABS: WBC 25.1 k/uL (3.8-10.6)
[2017-12-22] MEDS: POTASSIUM CHLORIDE 10 MEQ in WATER FOR INJECTION 1 100ML.BAG IVPB SCH ×2 (05:31→07:03)
[2017-12-22] MEDS: SODIUM CHLORIDE 0.9% 1,000 ML IV SCH ×2 (05:31→12:38)
[2017-12-22 06:01] LABS: Glucose,Whole Blood 117 mg/dL (75-99)
[2017-12-22] MEDS: IPRATROPIUM-ALBUTEROL 3 ML NEB INHALATION SCH ×4 (07:27→19:48)
[2017-12-22 08:05] LABS: Toxic Granulation Present
--- NOTE | 2017-12-22 08:23 | XR ---
EXAMINATION TYPE: XR chest 1V portable DATE OF EXAM: 12/22/2017 COMPARISON: December 21, 2017 HISTORY: SOB, Follow Up FINDINGS: Indwelling tubes and catheters are unchanged. No change in bibasilar opacities. Stable appearance of the cardio-mediastinal structures at this time. Moderate layering left-sided pleural effusion. IMPRESSION: 1. Stable portable chest. Clinical correlation and follow up until resolution is recommended.
[2017-12-22] MEDS: PANTOPRAZOLE 40 MG/10 ML VIAL IVP SCH (08:26)
[2017-12-22] MEDS: CHLORHEXIDINE GLUCONATE 15 ML CUP MUCOUS MEM SCH ×2 (08:31→19:50)
[2017-12-22] MEDS: ASPIRIN 81 MG PO SCH (08:31)
[2017-12-22] MEDS: LEVOTHYROXINE IVP 100 MCG/5 ML VIAL IV SCH (08:31)
[2017-12-22] MEDS: AMIODARONE 200 MG TAB PO SCH ×2 (08:31→20:17)
[2017-12-22] MEDS: CLOPIDOGREL 75 MG TAB PO SCH (08:31)
[2017-12-22] MEDS: ATORVASTATIN 40 MG TAB PO SCH (08:31)
[2017-12-22] MEDS: DULoxetine HCL 60 MG CAPSULE.DR PO SCH (08:31)
[2017-12-22] MEDS: ANIDULAFUNGIN 100 MG in SODIUM CHLORIDE 0.9% 100 ML IVPB SCH (08:34)
[2017-12-22] MEDS: PROPOFOL 1,000 MG in EMPTY BAG 1 BAG IV SCH (08:55)
[2017-12-22] MEDS: MEROPENEM 2 GM in SODIUM CHLORIDE 0.9% 100 ML IVPB SCH ×2 (09:04→20:17)
--- NOTE | 2017-12-22 09:28 | P.PN ---
Subjective Progress Note Date: 12/22/17 Principal diagnosis: Coronary artery disease with critical left main disease. Preserved left ventricular function. Previous medical history of hypertension, hyperlipidemia , diabetes mellitus with preoperative hemoglobin A1c 8.1%, hypothyroid, chest granulomatous disease, peripheral vascular disease status post right fem-pop bypass, previous tobacco dependence with FEV1 109% of predicted in November 2016, recent fall in June 2017 with torn right rotator cuff, questionable DVT with previous Coumadin use greater than 2 years ago, syncopal episodes, paroxysmal atrial fibrillation, chronic low back pain, obesity, and depression. Preoperative E. coli urinary tract infection. POD #11 urgent quadruple coronary artery bypass grafting using the left internal mammary sequentially to the diagonal artery and to the left anterior descending artery, reverse saphenous vein graft from the aorta to the first obtuse marginal, reverse saphenous vein graft from the aorta to the third obtuse marginal artery. Bilateral pulmonary vein isolation using the AtriCure radiofrequency clamp. Exclusion of the left atrial appendage using a 35 mm AtriClip. Intraoperative transesophageal echocardiogram and epi-aortic scanning. Postoperative elevation in transaminases, an unexpected outcome, resolving. Leukocytosis, present preoperatively. Postoperative diarrhea, an unexpected outcome. Postoperative normocytic, normochromic anemia, and expected outcome of surgery secondary to cardiopulmonary bypass and hemodilution. Postoperative urinary retention, an unexpected outcome. Postoperative pneumoperitoneum, an unexpected outcome. Necrosis of the transverse colon, right colon, an unexpected outcome. POD #2 right colectomy, transverse colectomy, takedown splenic flexure, ileostomy performed by Dr. Montoya. Patient currently remains sedated on mechanical ventilatory support. She has been adequately fluid resuscitated with a CVP of 10-13. Urine output remains marginal at at 30-40 mL per hour. Positive bile fluid from NG tube and ileostomy. Abdominal incision draining with open area proximally and distally. Patient did open her eyes and seemed to be aware yesterday when family was present. Currently hemodynamically stable off pressors. Objective - Vital Signs Vital signs: Vital Signs Temp 97.9 F 12/22/17 08:00 Pulse 64 12/22/17 08:00 Resp 18 12/22/17 08:00 BP 102/49 12/22/17 04:00 Pulse Ox 99 12/22/17 08:00 Intake & Output 08/23/18 08/24/18 08/24/18 18:59 06:59 18:59 Intake Total 5177.773 1805.119 437 Output Total 1030 1330 330 Balance 4147.773 475.119 107 Weight 89.9 kg 100.2 kg Intake: IV 4325 1691 337 ACETAMINOPHEN IV (For NPO 100 100 100 ) 1,000 mg In Empty Bag 1 bag @ 400 mls/hr IVPB Q6HR [facility] Rx#:[id number] Albumin Human 25% 50 ml 250 In Empty Bag 1 bag @ 100 mls/hr IVPB ONCE ONE Rx#: [id number] Anidulafungin 200 mg In 200 Sodium Chloride 0.9% 200 ml @ 84 mls/hr IVPB ONCE ONE Rx#:[id number] Fluconazole in NaCl,Iso- 100 Osm 200 mg In Saline 1 100ml.bag @ 100 mls/hr IVPB DAILY [facility] Rx#: [id number] Lactated Ringers 1,000 ml 2000 @ 999 mls/hr IV .Q1H1M [facility] Rx#:[id number] Magnesium Sulfate-D5w Pmx 200 1 gm In Dextrose/Water 1 100ml.bag @ 100 mls/hr IVPB Q1H [facility] Rx#: [id number] Meropenem 2 gm In Sodium 100 100 Chloride 0.9% 100 ml @ 200 mls/hr IVPB Q12HR [facility] Rx#:[id number] Potassium Chloride 10 meq 300 100 In Water For Injection 1 100ml.bag @ 100 mls/hr IVPB Q1H [facility] Rx#: [id number] Pressure Bags 66 12 Sodium Chloride 0.9% 1, 1375 1125 125 000 ml @ 125 mls/hr IV . Q8H [facility] Rx#:[id number] Intake, IV Titration 302.773 114.119 100 Amount Meropenem 2 gm In Sodium 100 Chloride 0.9% 100 ml @ 200 mls/hr IVPB Q12HR [facility] Rx#:[id number] Norepinephrine 16 mg In 64.708 14.119 Sodium Chloride 0.9% 250 ml @ Titrate IV .Q0M [facility] Rx#:[id number] Propofol 1,000 mg In 238.065 100 Empty Bag 1 bag @ Titrate IV .Q0M [facility] Rx#: [id number] Oral 240 Blood Product 310 Rc Pheresis 2 As3 Unit 310 [id number] Output: Gastric Drainage 300 250 Urine 430 410 80 Stool 300 920 Other: Voiding Method Indwelling Catheter Indwelling Catheter # Voids 1 ABP, PAP, CO, CI - Last Documented Arterial Blood Pressure 112/63 Pulmonary Artery Pressure 4/4 Cardiac Output 4.5 Cardiac Index 2.5 - Constitutional General appearance: Present: no acute distress, obese - Respiratory Details: Lungs sounds clear bilaterally but diminished on the left side. Respirations even, nonlabored on mechanical ventilation. Current ventilator settings volume control plus mode, FiO2 40%, tidal volume 600, respiratory rate 18, PEEP 5. ABGs this morning 7.42/26/105/17/99%/-7.6. 7.5 ET tube present, 22 of the lip. - Cardiovascular Details: S1, S2 present. Regular rate and rhythm, sinus rhythm on telemetry. Sternum stable. Palpable peripheral pulses bilaterally. Generalized nonpitting edema present. Right internal jugular Cordis, left radial arterial line present. Current CVP 10-13. Antiembolism stockings, SCDs present. - Gastrointestinal Gastrointestinal Comment(s): Abdomen soft, nondistended. Hypoactive bowel sounds present. Right lower quadrant ileostomy present with green bile drainage. NG tube present to low intermittent suction with 250 mL green thin drainage in the last 12 hours. - Genitourinary Genitourinary Comment(s): Almaguer present draining clear, yellow urine. Output is 30-40 mL per hour. - Integumentary Integumentary Comment(s): Skin is warm and dry. Anterior chest incision well approximated with dry intact dressing present. Left lower semi-EVH site well approximated. Midline abdominal incision clean, weeping serous fluid from proximal and distal ends, currently packed. - Neurologic Neurologic Comment(s): Sedated with propofol and mechanical ventilation. Off sedation patient does open her eyes and follow commands. - Musculoskeletal Musculoskeletal: Present: generalized weakness - Allied health notes Allied health notes reviewed: nursing - Labs CBC & Chem 7: 12/22/17 04:23 12/22/17 04:23 Labs: Abnormal Lab Results - Last 24 Hours (Table) 12/20/17 12/21/17 12/21/17 Range/Units 11:26 12:09 14:15 WBC (3.8-10.6) k/uL RBC (3.80-5.40) m/uL Hgb (11.4-16.0) gm/dL Hct (34.0-46.0) % RDW (11.5-15.5) % Neutrophils # (1.3-7.7) k/uL Lymphocytes # (1.0-4.8) k/uL ABG pCO2 (35-45) mmHg ABG HCO3 (21-25) mmol/L ABG Total CO2 (19-24) mmol/L ABG O2 Saturation (94-97) % Sodium 135 L (137-145) mmol/L Chloride 112 H (98-107) mmol/L Carbon Dioxide 16 L (22-30) mmol/L Glucose 122 H (74-99) mg/dL POC Glucose (mg/dL) 135 H (75-99) mg/dL Calcium 6.8 L (8.4-10.2) mg/dL Magnesium (1.6-2.3) mg/dL Total Protein 3.3 L (6.3-8.2) g/dL Albumin 1.7 L (3.5-5.0) g/dL Crossmatch See Detail 12/21/17 12/21/17 12/21/17 Range/Units 14:48 18:22 19:05 WBC 23.8 H 24.5 H (3.8-10.6) k/uL RBC 2.48 L 2.92 L (3.80-5.40) m/uL Hgb 6.7 L* D 7.9 L (11.4-16.0) gm/dL Hct 21.3 L 24.9 L (34.0-46.0) % RDW 17.4 H 16.8 H (11.5-15.5) % Neutrophils # 22.3 H 22.7 H (1.3-7.7) k/uL Lymphocytes # 0.7 L 0.8 L (1.0-4.8) k/uL ABG pCO2 (35-45) mmHg ABG HCO3 (21-25) mmol/L ABG Total CO2 (19-24) mmol/L ABG O2 Saturation (94-97) % Sodium (137-145) mmol/L Chloride (98-107) mmol/L Carbon Dioxide (22-30) mmol/L Glucose (74-99) mg/dL POC Glucose (mg/dL) 100 H (75-99) mg/dL Calcium (8.4-10.2) mg/dL Magnesium (1.6-2.3) mg/dL Total Protein (6.3-8.2) g/dL Albumin (3.5-5.0) g/dL Crossmatch 12/21/17 12/22/17 12/22/17 Range/Units 23:31 04:10 04:23 WBC (3.8-10.6) k/uL RBC (3.80-5.40) m/uL Hgb (11.4-16.0) gm/dL Hct (34.0-46.0) % RDW (11.5-15.5) % Neutrophils # (1.3-7.7) k/uL Lymphocytes # (1.0-4.8) k/uL ABG pCO2 26 L (35-45) mmHg ABG HCO3 17 L (21-25) mmol/L ABG Total CO2 18 L (19-24) mmol/L ABG O2 Saturation 99.0 H (94-97) % Sodium 134 L (137-145) mmol/L Chloride 111 H (98-107) mmol/L Carbon Dioxide 16 L (22-30) mmol/L Glucose 108 H (74-99) mg/dL POC Glucose (mg/dL) 113 H (75-99) mg/dL Calcium 7.3 L (8.4-10.2) mg/dL Magnesium 2.4 H (1.6-2.3) mg/dL Total Protein 3.6 L (6.3-8.2) g/dL Albumin 1.8 L (3.5-5.0) g/dL Crossmatch 12/22/17 12/22/17 Range/Units 04:23 05:59 WBC 25.1 H* (3.8-10.6) k/uL RBC 2.89 L (3.80-5.40) m/uL Hgb 8.0 L (11.4-16.0) gm/dL Hct 24.9 L (34.0-46.0) % RDW 16.8 H (11.5-15.5) % Neutrophils # 23.9 H (1.3-7.7) k/uL Lymphocytes # 0.6 L (1.0-4.8) k/uL ABG pCO2 (35-45) mmHg ABG HCO3 (21-25) mmol/L ABG Total CO2 (19-24) mmol/L ABG O2 Saturation (94-97) % Sodium (137-145) mmol/L Chloride (98-107) mmol/L Carbon Dioxide (22-30) mmol/L Glucose (74-99) mg/dL POC Glucose (mg/dL) 117 H (75-99) mg/dL Calcium (8.4-10.2) mg/dL Magnesium (1.6-2.3) mg/dL Total Protein (6.3-8.2) g/dL Albumin (3.5-5.0) g/dL Crossmatch - Imaging and Cardiology Chest x-ray: report reviewed, image reviewed Assessment and Plan (1) Coronary artery disease involving left main coronary artery Current Visit: Yes Status: Chronic Code(s): I25.10 - ATHSCL HEART DISEASE OF [place] CORONARY ARTERY W/O ANG PCTRS SNOMED Code(s): 898193363 (2) Hypertension Current Visit: Yes Status: Chronic Code(s): I10 - ESSENTIAL (PRIMARY) HYPERTENSION SNOMED Code(s): 91979897 (3) Hyperlipidemia Current Visit: Yes Status: Chronic Code(s): E78.5 - HYPERLIPIDEMIA, UNSPECIFIED SNOMED Code(s): 76941256 (4) Diabetes Current Visit: Yes Status: Chronic Code(s): E11.9 - TYPE 2 DIABETES MELLITUS WITHOUT COMPLICATIONS SNOMED Code(s): 37820927 (5) Peripheral vascular disease Current Visit: Yes Status: Chronic Code(s): I73.9 - PERIPHERAL VASCULAR DISEASE, UNSPECIFIED SNOMED Code(s): 659861990 (6) Family history of heart disease Current Visit: Yes Status: Chronic Code(s): Z82.49 - FAMILY HX OF ISCHEM HEART DIS AND OTH DIS OF THE CIRC SYS SNOMED Code(s): 435558290 (7) Tobacco dependence in remission Current Visit: No Status: Resolved Code(s): F17.201 - NICOTINE DEPENDENCE, UNSPECIFIED, IN REMISSION SNOMED Code(s): 028600483 (8) Hypothyroid Current Visit: Yes Status: Chronic Code(s): E03.9 - HYPOTHYROIDISM, UNSPECIFIED SNOMED Code(s): 79661582 (9) Syncopal episodes Current Visit: No Status: Chronic Code(s): R55 - SYNCOPE AND COLLAPSE SNOMED Code(s): 669022086 (10) History of DVT (deep vein thrombosis) Current Visit: No Status: Resolved Code(s): Z86.718 - PERSONAL HISTORY OF OTHER VENOUS THROMBOSIS AND EMBOLISM SNOMED Code(s): 029794958 (11) History of atrial fibrillation Current Visit: No Status: Resolved Code(s): Z86.79 - PERSONAL HISTORY OF OTHER DISEASES OF THE CIRCULATORY SYSTEM SNOMED Code(s): 311020924 (12) Chronic low back pain Current Visit: Yes Status: Chronic Code(s): M54.5 - LOW BACK PAIN; G89.29 - OTHER CHRONIC PAIN SNOMED Code(s): 703318105 (13) Depression Current Visit: Yes Status: Chronic Code(s): F32.9 - MAJOR DEPRESSIVE DISORDER, SINGLE EPISODE, UNSPECIFIED SNOMED Code(s): 60686102 Plan: 1. Continue aspirin, statin, Plavix, subcu heparin, beta sheree. Will increase beta sheree therapy as tolerated. 2. Ventilator support, bronchodilators per pulmonology. Wean when able. Wean sedation as able. 3. Continue amiodarone for A. fib prophylaxis. 4. Continue meropenem, Eraxis per Dr. Mccartney. 5. Continue NG tube to low intermittent suction. Monitor output from NG tube and ileostomy. 6. Will start TPN for nutrition per Dr. Salas. Dietary consult in place. 7. Keep Almaguer for strict accurate I and O's, urinary retention. 8. Continue normal saline 125 mL per hour. Keep off pressors as tolerated. Maintain CVP 9-12. 9. Left pleural effusion present. May need to be drained. 10. Monitor daily labs, chest x-rays. Lactic acid and pre-albumen ordered. 11. GI/DVT prophylaxis. 12. Pain control with current medication regimen. 13. Insulin/diabetic management per Dr. Yousif. 14. Wound VAC per general surgery 2 abdominal incisions 15. More recommendations to follow based on patient's clinical course. Patient is critical at this time, prognosis is guarded. Time with Patient: Greater than 30
[2017-12-22 10:42] LABS: ABG Base Excess -7.4 mmol/L; ABG HCO3 17 mmol/L (21-25); ABG Oxygen Saturation 98.3 % (94-97); ABG PCO2 26 mmHg (35-45); ABG PH 7.42 (7.35-7.45); ABG PO2 100 mmHg (83-108); ABG TCO2 18 mmol/L (19-24)
[2017-12-22] MEDS ORDERED: SODIUM BICARB 8.4% 50 ML SYR (1 MEQ/ML) IV ONE (10:52)
[2017-12-22] MEDS ORDERED: SODIUM BICARB 8.4% 50 ML SYR (1 MEQ/ML) ONE (10:54)
[2017-12-22] MEDS: MVI, ADULT NO.4 WITH VIT K 10 ML, TRACE (CONC-1ML/DOSE) 1 ML in AMINO ACID 4.25%-D10W+L... IV SCH ×3 (11:27)
[2017-12-22 11:35] LABS: Glucose,Whole Blood 108 mg/dL (75-99)
[2017-12-22 11:58] LABS: Ionized Calcium 4.8 mg/dL (4.5-5.3)
[2017-12-22] MEDS: ASCORBIC ACID 500 MG TAB PO SCH (12:15)
[2017-12-22] MEDS: CYANOCOBALAMIN 500 MCG TAB PO SCH (12:15)
[2017-12-22 12:29] LABS: Potassium 4.1 mmol/L (3.5-5.1)
[2017-12-22] MEDS: FERROUS SULFATE 325 MG TAB PO SCH (12:39)
[2017-12-22] MEDS: HYDROmorphone 1 MG/ML 1 ML SYRINGE IVP PRN ×4 (12:50→21:30)
--- NOTE | 2017-12-22 13:19 | P.PN ---
Subjective Progress Note Date: 12/22/17 Principal diagnosis: Coronary artery bypass grafting This is a pleasant 72-year-old female patient who underwent elective coronary artery bypass grafting 10 days ago. Yesterday, the patient developed abdominal discomfort associated with severe diarrhea. The chest x-ray showed pneumoperitoneum. Subsequent computed tomography scan of the abdomen showed also pneumoperitoneum. The patient was taken to the OR emergently where she underwent colectomy and currently she has a colostomy. The abdominal wall wound left open with a dressing. Clinically the patient is doing better. She was extubated earlier this morning. She is off vasopressors. She denies having any chest pain or chest discomfort. The chest x-ray showed left pleural effusion. Objective - Vital Signs Vital signs: Vital Signs Temp 97.6 F 12/22/17 12:00 Pulse 74 12/22/17 12:05 Resp 21 12/22/17 12:00 BP 153/69 12/22/17 12:00 Pulse Ox 99 12/22/17 12:00 Intake & Output 12/21/17 12/22/17 12/22/17 18:59 06:59 18:59 Intake Total 5177.773 2594.587 3842.056 Output Total 1030 1330 655 Balance 4147.773 475.119 455.056 Weight 89.9 kg 100.2 kg 100.2 kg Intake: IV 4325 1691 736 ACETAMINOPHEN IV (For NPO 100 100 100 ) 1,000 mg In Empty Bag 1 bag @ 400 mls/hr IVPB Q6HR [facility] Rx#:[id number] Albumin Human 25% 50 ml 250 In Empty Bag 1 bag @ 100 mls/hr IVPB ONCE ONE Rx#: [id number] Anidulafungin 200 mg In 200 Sodium Chloride 0.9% 200 ml @ 84 mls/hr IVPB ONCE ONE Rx#:[id number] Fluconazole in NaCl,Iso- 100 Osm 200 mg In Saline 1 100ml.bag @ 100 mls/hr IVPB DAILY [facility] Rx#: [id number] Lactated Ringers 1,000 ml 2000 @ 999 mls/hr IV .Q1H1M [facility] Rx#:[id number] Magnesium Sulfate-D5w Pmx 200 1 gm In Dextrose/Water 1 100ml.bag @ 100 mls/hr IVPB Q1H [facility] Rx#: [id number] Meropenem 2 gm In Sodium 100 100 Chloride 0.9% 100 ml @ 200 mls/hr IVPB Q12HR [facility] Rx#:[id number] Potassium Chloride 10 meq 300 100 In Water For Injection 1 100ml.bag @ 100 mls/hr IVPB Q1H [facility] Rx#: [id number] Pressure Bags 66 36 Sodium Chloride 0.9% 1, 1375 1125 500 000 ml @ 125 mls/hr IV . Q8H [facility] Rx#:[id number] Intake, IV Titration 302.773 114.119 374.056 Amount Anidulafungin 100 mg In 100 Sodium Chloride 0.9% 100 ml @ 84 mls/hr IVPB DAILY [facility] Rx#:[id number] Meropenem 2 gm In Sodium 100 Chloride 0.9% 100 ml @ 200 mls/hr IVPB Q12HR [facility] Rx#:[id number] Mvi, Adult No.4 with Vit 50 K 10 ml Trace (Conc-1Ml/ Dose) 1 ml In Amino Acid 4.25%-D10w+Lytes*E* 1,000 ml @ 50 mls/hr IV . [id number] [facility] Rx#:[id number] Norepinephrine 16 mg In 64.708 14.119 Sodium Chloride 0.9% 250 ml @ Titrate IV .Q0M [facility] Rx#:[id number] Propofol 1,000 mg In 238.065 100 104.056 Empty Bag 1 bag @ Titrate IV .Q0M [facility] Rx#: [id number] Sodium Chloride 0.9% 1, 20 000 ml @ 20 mls/hr IV . Q24H [facility] Rx#:[id number] Oral 240 Blood Product 310 Rc Pheresis 2 As3 Unit 310 [id number] Output: Gastric Drainage 300 250 Urine 430 410 285 Stool 300 920 120 Other: Voiding Method Indwelling Catheter Indwelling Catheter Indwelling Catheter # Voids 1 ABP, PAP, CO, CI - Last Documented Arterial Blood Pressure 158/68 Pulmonary Artery Pressure 4/4 Cardiac Output 4.5 Cardiac Index 2.5 - Constitutional General appearance: Present: no acute distress - Respiratory Respiratory: bilateral: diminished - Cardiovascular Rhythm: regular - Labs CBC & Chem 7: 12/22/17 04:23 12/22/17 11:30 Labs: Abnormal Lab Results - Last 24 Hours (Table) 12/20/17 12/21/17 12/21/17 Range/Units 11:26 14:15 14:48 WBC 23.8 H (3.8-10.6) k/uL RBC 2.48 L (3.80-5.40) m/uL Hgb 6.7 L* D (11.4-16.0) gm/dL Hct 21.3 L (34.0-46.0) % RDW 17.4 H (11.5-15.5) % Neutrophils # 22.3 H (1.3-7.7) k/uL Lymphocytes # 0.7 L (1.0-4.8) k/uL ABG pCO2 (35-45) mmHg ABG HCO3 (21-25) mmol/L ABG Total CO2 (19-24) mmol/L ABG O2 Saturation (94-97) % Sodium 135 L (137-145) mmol/L Chloride 112 H (98-107) mmol/L Carbon Dioxide 16 L (22-30) mmol/L Glucose 122 H (74-99) mg/dL POC Glucose (mg/dL) (75-99) mg/dL Calcium 6.8 L (8.4-10.2) mg/dL Magnesium (1.6-2.3) mg/dL Total Protein 3.3 L (6.3-8.2) g/dL Albumin 1.7 L (3.5-5.0) g/dL Triglycerides (<150) mg/dL Crossmatch See Detail 12/21/17 12/21/17 12/21/17 Range/Units 18:22 19:05 23:31 WBC 24.5 H (3.8-10.6) k/uL RBC 2.92 L (3.80-5.40) m/uL Hgb 7.9 L (11.4-16.0) gm/dL Hct 24.9 L (34.0-46.0) % RDW 16.8 H (11.5-15.5) % Neutrophils # 22.7 H (1.3-7.7) k/uL Lymphocytes # 0.8 L (1.0-4.8) k/uL ABG pCO2 (35-45) mmHg ABG HCO3 (21-25) mmol/L ABG Total CO2 (19-24) mmol/L ABG O2 Saturation (94-97) % Sodium (137-145) mmol/L Chloride (98-107) mmol/L Carbon Dioxide (22-30) mmol/L Glucose (74-99) mg/dL POC Glucose (mg/dL) 100 H 113 H (75-99) mg/dL Calcium (8.4-10.2) mg/dL Magnesium (1.6-2.3) mg/dL Total Protein (6.3-8.2) g/dL Albumin (3.5-5.0) g/dL Triglycerides (<150) mg/dL Crossmatch 12/22/17 12/22/17 12/22/17 Range/Units 04:10 04:23 04:23 WBC 25.1 H* (3.8-10.6) k/uL RBC 2.89 L (3.80-5.40) m/uL Hgb 8.0 L (11.4-16.0) gm/dL Hct 24.9 L (34.0-46.0) % RDW 16.8 H (11.5-15.5) % Neutrophils # 23.9 H (1.3-7.7) k/uL Lymphocytes # 0.6 L (1.0-4.8) k/uL ABG pCO2 26 L (35-45) mmHg ABG HCO3 17 L (21-25) mmol/L ABG Total CO2 18 L (19-24) mmol/L ABG O2 Saturation 99.0 H (94-97) % Sodium 134 L (137-145) mmol/L Chloride 111 H (98-107) mmol/L Carbon Dioxide 16 L (22-30) mmol/L Glucose 108 H (74-99) mg/dL POC Glucose (mg/dL) (75-99) mg/dL Calcium 7.3 L (8.4-10.2) mg/dL Magnesium 2.4 H (1.6-2.3) mg/dL Total Protein 3.6 L (6.3-8.2) g/dL Albumin 1.8 L (3.5-5.0) g/dL Triglycerides (<150) mg/dL Crossmatch 12/22/17 12/22/17 12/22/17 Range/Units 05:59 10:36 11:30 WBC (3.8-10.6) k/uL RBC (3.80-5.40) m/uL Hgb (11.4-16.0) gm/dL Hct (34.0-46.0) % RDW (11.5-15.5) % Neutrophils # (1.3-7.7) k/uL Lymphocytes # (1.0-4.8) k/uL ABG pCO2 26 L (35-45) mmHg ABG HCO3 17 L (21-25) mmol/L ABG Total CO2 18 L (19-24) mmol/L ABG O2 Saturation 98.3 H (94-97) % Sodium (137-145) mmol/L Chloride (98-107) mmol/L Carbon Dioxide (22-30) mmol/L Glucose (74-99) mg/dL POC Glucose (mg/dL) 117 H (75-99) mg/dL Calcium (8.4-10.2) mg/dL Magnesium (1.6-2.3) mg/dL Total Protein (6.3-8.2) g/dL Albumin (3.5-5.0) g/dL Triglycerides 204 H (<150) mg/dL Crossmatch 12/22/17 Range/Units 11:32 WBC (3.8-10.6) k/uL RBC (3.80-5.40) m/uL Hgb (11.4-16.0) gm/dL Hct (34.0-46.0) % RDW (11.5-15.5) % Neutrophils # (1.3-7.7) k/uL Lymphocytes # (1.0-4.8) k/uL ABG pCO2 (35-45) mmHg ABG HCO3 (21-25) mmol/L ABG Total CO2 (19-24) mmol/L ABG O2 Saturation (94-97) % Sodium (137-145) mmol/L Chloride (98-107) mmol/L Carbon Dioxide (22-30) mmol/L Glucose (74-99) mg/dL POC Glucose (mg/dL) 108 H (75-99) mg/dL Calcium (8.4-10.2) mg/dL Magnesium (1.6-2.3) mg/dL Total Protein (6.3-8.2) g/dL Albumin (3.5-5.0) g/dL Triglycerides (<150) mg/dL Crossmatch Assessment and Plan Assessment: Assessment #1 status post coronary artery bypass grafting for severe left main disease #2 acute respiratory failure, improved #3 perforated viscus. #4 status post colectomy and colostomy #5 multiple comorbid conditions Plan #1 the patient has been maintaining normal sinus mechanism #2 She was extubated earlier #3 follow-up with the patient.
--- NOTE | 2017-12-22 14:13 | P.PN ---
Subjective Progress Note Date: 12/22/17 On today's evaluation of a 12/18/2017 Carolyn is back to the intensive care unit. She is postop day #7 following her coronary artery bypass surgery. She got transferred because of an extensive liquidy/watery diarrhea which left her into a dehydrated state and causes some non-anion gap metabolic acidosis. Her bicarb level is down to 14. She had 3 additional liquidy bowel movements this morning. The patient was seen by general surgery. CAT scan of the abdomen was done raising the possibility of an underlying ischemic colitis. She was placed on accommodation Zosyn and vancomycin. No fever or chills. She also had gone into atrial fibrillation. The rate is controlled right now with metoprolol and amiodarone and the patient is also on IV heparin. She is complaining of pain throughout her chest and body mainly in the joints and she has been taken hydrocodone outpatient basis. I restarted her on [place] 5 every 6 hours for pain control pH is using incentive spirometer. She is on IV fluids and she'll be started on a bicarb drip. The patient's chest x-ray from today showed small bilateral pleural effusion and basilar atelectasis and left lung base. There is also artifact from external objects on the chest x-ray. The postoperative echocardiogram showed a preserved LV function with an ejection fraction of 50-55 %. No valvular abnormalities noted. On today's evaluation of 12/19/2017, the patient is awake and alert and sitting up on a chair. The diarrhea has subsided significantly. She only had liquidy loose bowel movement there was small amount this morning. Otherwise, the patient is was resuscitated IV fluids. The patient received a bicarb infusion yesterday and her serum bicarb normalizes and earlier this morning associated to a normal saline infusion at the rate of 75 mL an hour. Her urine output is around 20-25 mL an hour. The patient's creatinine is normal. BUN is down to 7. Vascular electrodes are all within normal limits and her bicarb level is normalized. No nausea. No vomiting. No abdominal pain. She is taking clear liquid diet. No chest pain. Chest x-ray shows some mild pulmonary vascular congestion and atelectatic changes in lung bases bilaterally. She is on room air oxygen. Sternum stable clean and intact. She has E. coli in the urine and she is on IV Zosyn. Vancomycin was discontinued. IV heparin was discontinued. Her current rhythm is sinus. On 12/20/2017 the patient developed some vague abdominal pain. This pain started approximately 4 AM in the morning. As mentioned earlier the patient is postop from coronary artery bypass surgery and she is postop day #8. The patient is currently in the intensive care unit. X-ray of the chest was done this morning and it showed free air under the diaphragm. This is consistent with pneumoperitoneum and the patient will need further investigation. Immediately the general surgeon was contacted and the patient had a CAT scan of the abdomen and it showed moderate pneumoperitoneum with site of the perforation i not identified although there was suspicion that maybe the distal stomach/duodenal area. The patient currently on IV Zosyn. No cervical leukocytosis. Urine output is dropped down to 20 mL an hour. Her white count from this morning's at 14.3. Patient be taken to the operating room for an expected laparotomy. No altered mentation. No cough or sputum production. No other complaints otherwise for now. On 12/21/2017 I'm seeing this patient for a follow-up. She is a critically ill female patient was taken to the operating room yesterday for an acute bowel perforation. The patient was found to have pneumoperitoneum and the patient was taken to the operating room and the patient underwent expiratory laparotomy and right colectomy and transverse colectomy and takedown of splenic flexure and diverticular colostomy. The patient intraoperatively was found to have necrosis of the transverse colon and the right colon. Postop, the patient was kept intubated and the patient was moved to the intensive care unit for further evaluation and management. Overnight the patient was given fluid aggressively. She was given IV albumin. She was given lactated Ringer solution and normal saline solution. She did drop her pressure and she had also to placed on pressors and she is currently on 3-4 mics of norepinephrine infusion to maintain a mean artery pressure above 65. This morning I give her another liter of lactated Ringer and nontender albumin 5% to bring her CVP above 12. Hemoglobin dropped down to 6.7. Her white count came up to 31.4 and subsequently dropped down to 23. This is expected as the patient had a bowel necrosis and intra-abdominal sepsis. Antibiotic dressings were done and the patient was placed on Merrem and Eraxis. Earlier this morning the patient was on assist-control mode of ventilation and was obvious that the patient was asynchronous and double stacking on a mechanical ventilator. This was occurring even while on 40 mics of Diprivan infusion. Based on this, necessary vent changes were done. The patient was air hungry and she was taken significantly high tidal volumes. I was able to bring the tidal volume of 600 and the rate of 18 with a FiO2 of 40% and a PEEP of 5. Chest x-ray from today showed that the patient had adequate expansion of both lungs. There is a left- sided pleural effusion and ET tube is around 3-4 cm above the al. The net fluid balance over the past 24 hours is +6 L in the urine output is adequate for now. The patient is afebrile. On 12/22/2017 I'm seeing this patient for a follow-up. Note that the patient is postop day #2 following chest was colectomy, right colectomy and ileostomy and the patient is postop day #11 following her coronary artery bypass surgery. This morning the patient was sedated with Diprivan and she was calm and comfortable. Despite being on Diprivan, the patient was easily arousable. She was maintained on assist control mode of ventilation. Throughout the night the patient was an assist-control at the rate of 20 with a tidal volume of 600 and FiO2 of 40% and PEEP of 5. Chest x-ray showing the development of a left-sided pleural effusion. ET tube is in a good location. Rest of the lungs are all in good location is. NG tube is also in place. The blood gases from this morning showed a pH of 7.42 with a pCO2 of 26 and pO2 of 100. No significant orotracheal secretions. Hemodynamically, the patient was aggressively resuscitated IV fluids. She is in a positive fluid balance in order of 6 L at least and the patient was taken off pressors and she's been off the norepinephrine infusion for now. She is producing adequate amount of urine output. She does have a component of non-anion gap metabolic acidosis with a bicarb level of 16. Renal function stable with a creatinine of 0.9. Rest of the electrolytes are all within normal limits. Her white cell count peaked at 27.5 and currently is down to 25. She remains on a broad-spectrum antibiotics including IV Merrem and Ecaris. The cardiac rhythm remains sinus. CVP is somewhat between 10 and 13. Urine output is order of 30-40 mL an hour. Angiopathy was noted. There is also minimal amount of liquidy material within the ileostomy back. Surgical wound site is open and a superior and inferior portion and the wound VAC will be applied to that area. There is no active drainage at this point in time. Based on all this, I give the patient is sedation holiday. She woke up very nicely and she was able to follow commands and answers questions appropriately. Weaning parameters were checked and the patient had a tidal volume of 510 with a vital capacity of 780 within this of 27 and the rapid shallow breathing index of 34. She was given a CPAP trial and following that the patient was extubated to a nasal cannula pH is tolerated extubation without any major difficulties. At this point in time, the patient is extubated, she is following commands and answering questions appropriately. Family is at the bedside. Objective - Vital Signs Vital signs: Vital Signs Temp 97.6 F 12/22/17 12:00 Pulse 82 12/22/17 13:00 Resp 15 12/22/17 13:00 BP 152/83 12/22/17 13:00 Pulse Ox 96 12/22/17 13:00 Intake & Output 12/21/17 12/22/17 12/22/17 18:59 06:59 18:59 Intake Total 5177.773 4616.032 1188.056 Output Total 1030 1330 855 Balance 4147.773 475.119 281.056 Weight 89.9 kg 100.2 kg 100.2 kg Intake: IV 4325 1691 742 ACETAMINOPHEN IV (For NPO 100 100 100 ) 1,000 mg In Empty Bag 1 bag @ 400 mls/hr IVPB Q6HR [facility] Rx#:[id number] Albumin Human 25% 50 ml 250 In Empty Bag 1 bag @ 100 mls/hr IVPB ONCE ONE Rx#: [id number] Anidulafungin 200 mg In 200 Sodium Chloride 0.9% 200 ml @ 84 mls/hr IVPB ONCE ONE Rx#:[id number] Fluconazole in NaCl,Iso- 100 Osm 200 mg In Saline 1 100ml.bag @ 100 mls/hr IVPB DAILY [facility] Rx#: [id number] Lactated Ringers 1,000 ml 2000 @ 999 mls/hr IV .Q1H1M [facility] Rx#:[id number] Magnesium Sulfate-D5w Pmx 200 1 gm In Dextrose/Water 1 100ml.bag @ 100 mls/hr IVPB Q1H [facility] Rx#: [id number] Meropenem 2 gm In Sodium 100 100 Chloride 0.9% 100 ml @ 200 mls/hr IVPB Q12HR [facility] Rx#:[id number] Potassium Chloride 10 meq 300 100 In Water For Injection 1 100ml.bag @ 100 mls/hr IVPB Q1H [facility] Rx#: [id number] Pressure Bags 66 42 Sodium Chloride 0.9% 1, 1375 1125 500 000 ml @ 125 mls/hr IV . Q8H [facility] Rx#:[id number] Intake, IV Titration 302.773 114.119 394.056 Amount Anidulafungin 100 mg In 100 Sodium Chloride 0.9% 100 ml @ 84 mls/hr IVPB DAILY [facility] Rx#:[id number] Meropenem 2 gm In Sodium 100 Chloride 0.9% 100 ml @ 200 mls/hr IVPB Q12HR [facility] Rx#:[id number] Mvi, Adult No.4 with Vit 50 K 10 ml Trace (Conc-1Ml/ Dose) 1 ml In Amino Acid 4.25%-D10w+Lytes*E* 1,000 ml @ 50 mls/hr IV . [id number] [facility] Rx#:[id number] Norepinephrine 16 mg In 64.708 14.119 Sodium Chloride 0.9% 250 ml @ Titrate IV .Q0M [facility] Rx#:[id number] Propofol 1,000 mg In 238.065 100 104.056 Empty Bag 1 bag @ Titrate IV .Q0M [facility] Rx#: [id number] Sodium Chloride 0.9% 1, 40 000 ml @ 20 mls/hr IV . Q24H [facility] Rx#:[id number] Oral 240 Blood Product 310 Rc Pheresis 2 As3 Unit 310 [id number] Output: Gastric Drainage 300 250 Urine 430 410 335 Stool 300 920 270 Other: Voiding Method Indwelling Catheter Indwelling Catheter Indwelling Catheter # Voids 1 ABP, PAP, CO, CI - Last Documented Arterial Blood Pressure 158/68 Pulmonary Artery Pressure 4/4 Cardiac Output 4.5 Cardiac Index 2.5 - Exam - Constitutional General appearance: Present: no acute distress, obese, the patient is currently on 4 L about 2 by nasal cannula - Respiratory Details: Lungs sounds clear bilaterally but diminished on the left side. Patient is extubated to 4 L about by nasal cannula - Cardiovascular Details: S1, S2 present. Regular rate and rhythm, sinus rhythm on telemetry. Sternum stable. Palpable peripheral pulses bilaterally. Generalized nonpitting edema present. Right internal jugular Cordis, left radial arterial line present. Current CVP 10-13. Antiembolism stockings, SCDs present. - Gastrointestinal Gastrointestinal Comment(s): Abdomen soft, nondistended. Hypoactive bowel sounds present. Right lower quadrant ileostomy present with green bile drainage. NG tube present to low intermittent suction with 250 mL green thin drainage in the last 12 hours. - Genitourinary Genitourinary Comment(s): Almaguer present draining clear, yellow urine. Output is 30-40 mL per hour. - Integumentary Integumentary Comment(s): Skin is warm and dry. Anterior chest incision well approximated with dry intact dressing present. Left lower semi-EVH site well approximated. Midline abdominal incision clean, weeping serous fluid from proximal and distal ends, currently packed. - Neurologic Neurologic Comment(s): Awake and alert and following commands and answering questions appropriately. - Musculoskeletal Musculoskeletal: Present: generalized weakness - Labs CBC & Chem 7: 12/22/17 04:23 12/22/17 11:30 Labs: Abnormal Lab Results - Last 24 Hours (Table) 12/20/17 12/21/17 12/21/17 Range/Units 11:26 14:15 14:48 WBC 23.8 H (3.8-10.6) k/uL RBC 2.48 L (3.80-5.40) m/uL Hgb 6.7 L* D (11.4-16.0) gm/dL Hct 21.3 L (34.0-46.0) % RDW 17.4 H (11.5-15.5) % Neutrophils # 22.3 H (1.3-7.7) k/uL Lymphocytes # 0.7 L (1.0-4.8) k/uL ABG pCO2 (35-45) mmHg ABG HCO3 (21-25) mmol/L ABG Total CO2 (19-24) mmol/L ABG O2 Saturation (94-97) % Sodium 135 L (137-145) mmol/L Chloride 112 H (98-107) mmol/L Carbon Dioxide 16 L (22-30) mmol/L Glucose 122 H (74-99) mg/dL POC Glucose (mg/dL) (75-99) mg/dL Calcium 6.8 L (8.4-10.2) mg/dL Magnesium (1.6-2.3) mg/dL Total Protein 3.3 L (6.3-8.2) g/dL Albumin 1.7 L (3.5-5.0) g/dL Triglycerides (<150) mg/dL Crossmatch See Detail 12/21/17 12/21/17 12/21/17 Range/Units 18:22 19:05 23:31 WBC 24.5 H (3.8-10.6) k/uL RBC 2.92 L (3.80-5.40) m/uL Hgb 7.9 L (11.4-16.0) gm/dL Hct 24.9 L (34.0-46.0) % RDW 16.8 H (11.5-15.5) % Neutrophils # 22.7 H (1.3-7.7) k/uL Lymphocytes # 0.8 L (1.0-4.8) k/uL ABG pCO2 (35-45) mmHg ABG HCO3 (21-25) mmol/L ABG Total CO2 (19-24) mmol/L ABG O2 Saturation (94-97) % Sodium (137-145) mmol/L Chloride (98-107) mmol/L Carbon Dioxide (22-30) mmol/L Glucose (74-99) mg/dL POC Glucose (mg/dL) 100 H 113 H (75-99) mg/dL Calcium (8.4-10.2) mg/dL Magnesium (1.6-2.3) mg/dL Total Protein (6.3-8.2) g/dL Albumin (3.5-5.0) g/dL Triglycerides (<150) mg/dL Crossmatch 12/22/17 12/22/17 12/22/17 Range/Units 04:10 04:23 04:23 WBC 25.1 H* (3.8-10.6) k/uL RBC 2.89 L (3.80-5.40) m/uL Hgb 8.0 L (11.4-16.0) gm/dL Hct 24.9 L (34.0-46.0) % RDW 16.8 H (11.5-15.5) % Neutrophils # 23.9 H (1.3-7.7) k/uL Lymphocytes # 0.6 L (1.0-4.8) k/uL ABG pCO2 26 L (35-45) mmHg ABG HCO3 17 L (21-25) mmol/L ABG Total CO2 18 L (19-24) mmol/L ABG O2 Saturation 99.0 H (94-97) % Sodium 134 L (137-145) mmol/L Chloride 111 H (98-107) mmol/L Carbon Dioxide 16 L (22-30) mmol/L Glucose 108 H (74-99) mg/dL POC Glucose (mg/dL) (75-99) mg/dL Calcium 7.3 L (8.4-10.2) mg/dL Magnesium 2.4 H (1.6-2.3) mg/dL Total Protein 3.6 L (6.3-8.2) g/dL Albumin 1.8 L (3.5-5.0) g/dL Triglycerides (<150) mg/dL Crossmatch 12/22/17 12/22/17 12/22/17 Range/Units 05:59 10:36 11:30 WBC (3.8-10.6) k/uL RBC (3.80-5.40) m/uL Hgb (11.4-16.0) gm/dL Hct (34.0-46.0) % RDW (11.5-15.5) % Neutrophils # (1.3-7.7) k/uL Lymphocytes # (1.0-4.8) k/uL ABG pCO2 26 L (35-45) mmHg ABG HCO3 17 L (21-25) mmol/L ABG Total CO2 18 L (19-24) mmol/L ABG O2 Saturation 98.3 H (94-97) % Sodium (137-145) mmol/L Chloride (98-107) mmol/L Carbon Dioxide (22-30) mmol/L Glucose (74-99) mg/dL POC Glucose (mg/dL) 117 H (75-99) mg/dL Calcium (8.4-10.2) mg/dL Magnesium (1.6-2.3) mg/dL Total Protein (6.3-8.2) g/dL Albumin (3.5-5.0) g/dL Triglycerides 204 H (<150) mg/dL Crossmatch 12/22/17 Range/Units 11:32 WBC (3.8-10.6) k/uL RBC (3.80-5.40) m/uL Hgb (11.4-16.0) gm/dL Hct (34.0-46.0) % RDW (11.5-15.5) % Neutrophils # (1.3-7.7) k/uL Lymphocytes # (1.0-4.8) k/uL ABG pCO2 (35-45) mmHg ABG HCO3 (21-25) mmol/L ABG Total CO2 (19-24) mmol/L ABG O2 Saturation (94-97) % Sodium (137-145) mmol/L Chloride (98-107) mmol/L Carbon Dioxide (22-30) mmol/L Glucose (74-99) mg/dL POC Glucose (mg/dL) 108 H (75-99) mg/dL Calcium (8.4-10.2) mg/dL Magnesium (1.6-2.3) mg/dL Total Protein (6.3-8.2) g/dL Albumin (3.5-5.0) g/dL Triglycerides (<150) mg/dL Crossmatch Assessment and Plan Plan: #1. Multivessel coronary artery disease, involving left main coronary artery. And is awaiting coronary artery bypass grafting and surgery was done 12/11/2017 18 and the patient is postop day #11 #2. Acute perforated viscus with necrosis of the transverse and right colon and the patient is status post right colectomy, transverse colectomy and takedown of splenic flexure with diabetic ileostomy. Estimated blood loss was 100 mL and the patient is postop day #2. #3. Acute hypoxic respiratory failure secondary to above. The patient was extubated this morning. Weaning parameters were checked, patient was given a spontaneous breathing trial, and subsequently extubated to nasal cannula. Chest x-ray shows a left-sided pleural effusion. #4. Acute hypotension, likely secondary to intra-abdominal source of sepsis as the patient bowel perforation/necrosis. Currently off pressors and the patient has been was resuscitated with IV fluids #5. Atrial fibrillation, and expected outcome of surgery , back to sinus #6. Peripheral vascular disease #7. History of nicotine dependence, currently in remission, quit 10 years ago, carries [id number] smoking history #8. Hypothyroidism #9. Diabetes mellitus type 2 #10. Chronic low back pain #11. Depression #12 obesity with a BMI of 34.3 #13 leukocytosis #14 anemia and expected outcome of surgery, hemoglobin is down to 6.7 probably somewhat dilutional as the patient was aggressively resuscitated IV fluids. The patient received a unit of packed RBC and hemoglobin is up to 8.0. #15 hyperlipidemia #16 leukocytosis improving #17 non-anion gap metabolic acidosis #18 left-sided pleural effusion as evident on today's chest x-ray #19 severe hypoproteinemia and hyperlipidemia and the patient will be started on TPN today. Plan The patient was extubated today. The patient will be started on TPN for nutritional support. We'll cut down the IV fluids to KVO. We'll monitor the serum bicarb level. We'll monitor the hemoglobin. May need to start gentle diuresis with the next 24 hours. Keep the NG tube in place. Monitor the ileostomy site. Monitor the abdominal wound and the patient will need a wound VAC to be applied to that area. Hemodynamically stable. Continue same antibiotic coverage. Keep the patient ICU. Family has been updated on the condition. Case was discussed with cardiothoracic surgery at length. The extubation was successful. We'll continue to follow. This is a critically care evaluation that was done and more than 30 minutes. Time with Patient: Greater than 30
--- NOTE | 2017-12-22 17:05 | PN ---
PROGRESS NOTE DATE OF SERVICE: 12/22/2017 This 72-year-old woman who was admitted after CAD, CABG also had atrial fibrillation. Patient also had abdominal pain, colitis. Patient also had some change in mental status. Stroke was ruled out. Currently the patient has features of perforation. Patient underwent exploratory laparotomy which showed necrosis of the transverse colon, right colon. Patient underwent right colectomy, transverse colectomy and takedown of splenic fracture. Patient is being closely monitored. Postoperatively the patient was intubated and mechanically ventilated. Currently the patient is extubated. Patient has an NG tube in place. Multiple consultants are following the patient closely. The patient is much more alert. Blood sugar is being closely monitored at this time. Past medical history reviewed. REVIEW OF SYSTEMS: CARDIOVASCULAR SYSTEM: As mentioned earlier. RESPIRATORY SYSTEM: As mentioned earlier. GI: As mentioned earlier. : No dysuria or retention. NERVOUS SYSTEM: As mentioned earlier. CURRENT MEDICATIONS: Reviewed. They include: 1. DuoNeb q.i.d. and p.r.n. 2. TPN. 3. Cordarone 200 mg p.o. b.i.d. 4. Anidulafungin 100 mg daily. 5. Vitamin C 500 daily. 6. Aspirin 81 mg daily. 7. Lipitor 40 mg daily. 8. Dulcolax. 9. Peridex. 10.Plavix. 11.Vitamin B12. 12.Cymbalta 60 mg. 13.Iron sulfate. 14.Heparin 5000 units subcutaneously q.8. 15.Dilaudid. 16.NovoLog. 17.Synthroid 37.5 mcg daily. 18.Melatonin. 19.Meropenem 2 grams IV q.8. 20.Multivitamins. 21.Lopressor. 22.Replacement protocols. 23.Protonix 40 mg daily. 24.PPN. 25.P.r.n. medications. PHYSICAL EXAMINATION: Patient is alert, oriented x2. Pulse 74, blood pressure 153/83, respiration 15, temperature 97.6, pulse ox 96% on 4 L. HEENT: Conjunctivae normal. Oral mucosa moist. NECK: No jugular venous distention. No carotid bruit. No lymph node enlargement. CARDIOVASCULAR SYSTEM: S1, S2 muffled. RESPIRATORY SYSTEM: Breath sounds diminished at the bases. A few scattered rhonchi and crackles. ABDOMEN: Soft. Status post surgery. LEGS: No edema. No swelling. NERVOUS SYSTEM: Diffusely weak. LABS: WBC 25.1, hemoglobin 8. ABGs noted. Sodium 134, potassium 3.8. ASSESSMENT: 1. Status post coronary artery disease, coronary artery bypass grafting. 2. Necrosis of the transverse colon as well as ischemic bowel with perforation of the right colon, status post right colectomy and transverse colectomy and takedown splenic flexure and ileostomy. 3. Atrial fibrillation, paroxysmal. 4. Change in mental status, metabolic encephalopathy, possibly medication-induced, earlier improved. 5. Abdominal pain. 6. Increased white count, on empiric antibiotics. 7. Escherichia coli sepsis. 8. History of coronary artery disease. 9. Diabetes mellitus, type 2. 10.History of increased liver function tests. 11.Hypertension. 12.Hyperlipidemia. 13.History of degenerative joint disease. 14.Hypothyroidism. 15.Allergic rhinitis. 16.History of nicotine dependence. 17.Increased white count. 18.Anxiety, depression. 19.Urinary retention. RECOMMENDATIONS AND DISCUSSION: I recommend to continue current medication, continue with the monitoring, symptomatic treatment. Otherwise at this time I would recommend continuing with the antibiotics. Continue with the rest of the medications. Continue with antiplatelet agents. The prognosis is guarded because of multiple complex medical issues. Further recommendations to follow. MMODL / IJN: [id number] /
--- NOTE | 2017-12-22 17:35 | PN ---
PROGRESS NOTE DATE OF SERVICE: 12/22/2017 Ms. Sellers is awake in her bed. The patient was extubated yesterday. She has minimal complaints of pain. On exam, her vital signs are stable. Her incision site is clean. Her wound is clean. Her ileostomy has no significant output. Status post right and transverse colectomy for ischemic bowel. The patient will start diet once her ostomy has shown signs of bowel function. MMODL / IJN: [id number] /
[2017-12-22 18:51] LABS: Glucose,Whole Blood 146 mg/dL (75-99)
[2017-12-22] MEDS ORDERED: 1: MVI, ADULT NO.4 WITH VIT K 10 ML, TRACE (CONC-1ML/DOSE) 1 ML in AMINO ACID 4.25%-D10W IV SCH ×3 (23:00)
--- NOTE | 2017-12-22 23:34 | P.PN ---
Subjective Progress Note Date: 12/22/17 This is a 72-year-old female patient who initially underwent a stress test that was positive followed by a heart catheterization that showed significant disease in the left main, mid LAD and ostial circumflex. She then underwent an urgent CABG 4 vessel on December 11. Patient seems to have been recovering well until yesterday. She was noted to develop a fever of 102.6, lactic acid was 2.3 and also liver enzymes elevated. She had been treated for E. coli urinary tract infection that was present on admission with Rocephin. Her antibiotics were then changed to Zosyn and vancomycin. Patient also had some hypersomnolence and confusion yesterday for which her narcotics were changed from oxycodone which she chronically takes for back pain and switched to [place] every 6, IV Tylenol and Toradol and patient continues to have significant back pain. She denies chest pain, shortness of breath, nausea or vomiting. She denies any diarrhea. She does have decreased appetite which is been going on since admission. She states that she feels better from yesterday and recognizes that she was lethargic yesterday. Today. she has been up for shower and has had a bowel movement. Patient had low urine output yesterday and received a dose of Lasix. She had a CAT scan of the brain that showed cerebral atrophy and chronic small vessel ischemia. No acute intracranial process. She states that she was coughing a lot this morning but no denies shortness of breath. Chest x-ray from this morning shows minimal pulmonary vascular congestion cannot be exaggerated by low lung volumes in addition to persistent unchanged retrocardiac airspace disease, likely atelectasis and trace pleural effusions. Patient was using incentive spirometer 2000 mL she yesterday. She has had no significant wound concerns. Chest tubes and Almaguer are out. Patient denies any burning or pain with urination. . Now back in the intensive care unit she's had some abdominal pain and with worsening of her status including lactic acidosis to was concerns to ischemic colitis. She has been seen by surgery is being closely followed. She is on antimicrobial therapy with piperacillin tazobactam and vancomycin which would give coverage for ischemic colitis. Severe back pain is modestly controlled at this time. Patient is given a fluid bolus it appears that her lactic acid has dropped from 3.5-1.0. Fluids were also changed from lactated Ringer's to D5/ 0.45% NaCl with 20 mEq of KCl 12/18/2017 patient is sitting up in the chair looking considerably better. She has some clear liquids that she is able to ingest. Abdominal pain is improved. She is not having further fever or hypotension. Lactic acid is improved 12/21/2017 the patient had a significant change of her status and was found evidence of a perforated viscus and consequently the operating room yesterdaywhere exploratory laparotomy was performed, there is evidence of necrosis the transverse colon and of the right colon and consequently colectomy was performed in ileostomy was placed. Postoperatively the patient is now having some improvement. Vasopressor therapy has been held. Oxygenation is stable and she has no new complication. 12/22/2017 patient has had some improvement today that she is extubated and is stable after this has occurred. She is in no vasopressor therapy, has adequate oxygenation and urinary output. He is receiving some peripheral nutrition while her gastrointestinal function recovers. Objective - Vital Signs Vital signs: Vital Signs Temp 98 F 12/22/17 20:00 Pulse 85 12/22/17 23:00 Resp 16 12/22/17 23:00 BP 139/62 12/22/17 23:00 Pulse Ox 96 12/22/17 23:00 Intake & Output 12/22/17 12/22/17 12/23/17 06:59 18:59 06:59 Intake Total 1141.104 9032.056 308 Output Total 1330 1155 105 Balance 475.119 437.056 203 Weight 100.2 kg 100.2 kg Intake: IV 1691 778 308 ACETAMINOPHEN IV (For NPO 100 100 ) 1,000 mg In Empty Bag 1 bag @ 400 mls/hr IVPB Q6HR WILLIAM Rx#:[id number] Amino Acid 4.25%-D10w+ 150 Lytes*E* 1,000 ml @ 65 mls/hr IV .BY DURATION WILLIAM Rx#:[id number] Meropenem 2 gm In Sodium 100 100 Chloride 0.9% 100 ml @ 200 mls/hr IVPB Q12HR WILLIAM Rx#:[id number] Potassium Chloride 10 meq 300 100 In Water For Injection 1 100ml.bag @ 100 mls/hr IVPB Q1H WILLIAM Rx#: [id number] Pressure Bags 66 78 18 Sodium Chloride 0.9% 1, 1125 500 40 000 ml @ 125 mls/hr IV . Q8H WILLIAM Rx#:[id number] Intake, IV Titration 114.119 814.056 Amount Anidulafungin 100 mg In 100 Sodium Chloride 0.9% 100 ml @ 84 mls/hr IVPB DAILY WILLIAM Rx#:[id number] Meropenem 2 gm In Sodium 100 Chloride 0.9% 100 ml @ 200 mls/hr IVPB Q12HR WILLIAM Rx#:[id number] Mvi, Adult No.4 with Vit 350 K 10 ml Trace (Conc-1Ml/ Dose) 1 ml In Amino Acid 4.25%-D10w+Lytes*E* 1,000 ml @ 50 mls/hr IV . [id number] WILLIAM Rx#:[id number] Norepinephrine 16 mg In 14.119 Sodium Chloride 0.9% 250 ml @ Titrate IV .Q0M WILLIAM Rx#:[id number] Propofol 1,000 mg In 100 104.056 Empty Bag 1 bag @ Titrate IV .Q0M WILLIAM Rx#: [id number] Sodium Chloride 0.9% 1, 160 000 ml @ 20 mls/hr IV . Q24H WILLIAM Rx#:[id number] Output: Gastric Drainage 250 Urine 410 635 105 Stool 920 270 Other: Voiding Method Indwelling Catheter Indwelling Catheter Indwelling Catheter ABP, PAP, CO, CI - Last Documented Arterial Blood Pressure 131/71 Pulmonary Artery Pressure 4/4 Cardiac Output 4.5 Cardiac Index 2.5 - Exam Gen: This is a 72-year-old female. supine she is extubated and comfortable HEENT: Head is atraumatic, normocephalic. Pupils equal, round. Sclerae is anicteric. Mucous members of the mouth are moist. NECK: Supple. No JVD. No lymphadenopathy. No thyromegaly. LUNGS: Clear to auscultation. No wheezes or rhonchi. No intercostal retractions. HEART: Regular rate and rhythm. No murmur. Sternal wound is intact. No significant drainage, erythema. ABDOMEN: recent surgery ileostomy in place large amount of bilious material is noted. Bowel sounds are quiet. EXTREMITIES: No pedal edema. Wound and left lower extremity shows no signs of infection. No drainage, significant erythema or edema. NEUROLOGICAL: Patient is awake alert and interactive Skin the surgical site the chest wall is intact without erythema crepitance or fluctuance vein harvest site is intact.abdominal incision has serous drainage. - Labs CBC & Chem 7: 12/22/17 04:23 12/22/17 11:30 Labs: Abnormal Lab Results - Last 24 Hours (Table) 12/21/17 12/22/17 12/22/17 Range/Units 23:31 04:10 04:23 WBC (3.8-10.6) k/uL RBC (3.80-5.40) m/uL Hgb (11.4-16.0) gm/dL Hct (34.0-46.0) % RDW (11.5-15.5) % Neutrophils # (1.3-7.7) k/uL Lymphocytes # (1.0-4.8) k/uL ABG pCO2 26 L (35-45) mmHg ABG HCO3 17 L (21-25) mmol/L ABG Total CO2 18 L (19-24) mmol/L ABG O2 Saturation 99.0 H (94-97) % Sodium 134 L (137-145) mmol/L Chloride 111 H (98-107) mmol/L Carbon Dioxide 16 L (22-30) mmol/L Glucose 108 H (74-99) mg/dL POC Glucose (mg/dL) 113 H (75-99) mg/dL Calcium 7.3 L (8.4-10.2) mg/dL Magnesium 2.4 H (1.6-2.3) mg/dL Total Protein 3.6 L (6.3-8.2) g/dL Albumin 1.8 L (3.5-5.0) g/dL Triglycerides (<150) mg/dL 12/22/17 12/22/17 12/22/17 Range/Units 04:23 05:59 10:36 WBC 25.1 H* (3.8-10.6) k/uL RBC 2.89 L (3.80-5.40) m/uL Hgb 8.0 L (11.4-16.0) gm/dL Hct 24.9 L (34.0-46.0) % RDW 16.8 H (11.5-15.5) % Neutrophils # 23.9 H (1.3-7.7) k/uL Lymphocytes # 0.6 L (1.0-4.8) k/uL ABG pCO2 26 L (35-45) mmHg ABG HCO3 17 L (21-25) mmol/L ABG Total CO2 18 L (19-24) mmol/L ABG O2 Saturation 98.3 H (94-97) % Sodium (137-145) mmol/L Chloride (98-107) mmol/L Carbon Dioxide (22-30) mmol/L Glucose (74-99) mg/dL POC Glucose (mg/dL) 117 H (75-99) mg/dL Calcium (8.4-10.2) mg/dL Magnesium (1.6-2.3) mg/dL Total Protein (6.3-8.2) g/dL Albumin (3.5-5.0) g/dL Triglycerides (<150) mg/dL 12/22/17 12/22/17 12/22/17 Range/Units 11:30 11:32 18:49 WBC (3.8-10.6) k/uL RBC (3.80-5.40) m/uL Hgb (11.4-16.0) gm/dL Hct (34.0-46.0) % RDW (11.5-15.5) % Neutrophils # (1.3-7.7) k/uL Lymphocytes # (1.0-4.8) k/uL ABG pCO2 (35-45) mmHg ABG HCO3 (21-25) mmol/L ABG Total CO2 (19-24) mmol/L ABG O2 Saturation (94-97) % Sodium (137-145) mmol/L Chloride (98-107) mmol/L Carbon Dioxide (22-30) mmol/L Glucose (74-99) mg/dL POC Glucose (mg/dL) 108 H 146 H (75-99) mg/dL Calcium (8.4-10.2) mg/dL Magnesium (1.6-2.3) mg/dL Total Protein (6.3-8.2) g/dL Albumin (3.5-5.0) g/dL Triglycerides 204 H (<150) mg/dL Laboratory Results WBC 25.1 k/uL (3.8-10.6) H* 12/22/17 04:23 RBC 2.89 m/uL (3.80-5.40) L 12/22/17 04:23 Hgb 8.0 gm/dL (11.4-16.0) L 12/22/17 04:23 Hct 24.9 % (34.0-46.0) L 12/22/17 04:23 MCV 86.2 fL (80.0-100.0) 12/22/17 04:23 MCH 27.7 pg (25.0-35.0) 12/22/17 04:23 MCHC 32.1 g/dL (31.0-37.0) 12/22/17 04:23 RDW 16.8 % (11.5-15.5) H 12/22/17 04:23 Plt Count 391 k/uL (150-450) 12/22/17 04:23 Neutrophils % 95 % 12/22/17 04:23 Neutrophils % (Manual) 75 % 12/20/17 04:30 Band Neutrophils % 7 % 12/20/17 04:30 Lymphocytes % 2 % 12/22/17 04:23 Lymphocytes % (Manual) 7 % 12/20/17 04:30 Monocytes % 2 % 12/22/17 04:23 Monocytes % (Manual) 5 % 12/20/17 04:30 Eosinophils % 0 % 12/22/17 04:23 Eosinophils % (Manual) 2 % 12/20/17 04:30 Basophils % 0 % 12/22/17 04:23 Metamyelocytes % 3 % 12/20/17 04:30 Myelocytes % 3 % 12/20/17 04:30 Neutrophils # 23.9 k/uL (1.3-7.7) H 12/22/17 04:23 Neutrophils # (Manual) 11.70 k/uL (1.3-7.7) H 12/20/17 04:30 Lymphocytes # 0.6 k/uL (1.0-4.8) L 12/22/17 04:23 Lymphocytes # (Manual) 1.00 k/uL (1.0-4.8) 12/20/17 04:30 Monocytes # 0.4 k/uL (0-1.0) 12/22/17 04:23 Monocytes # (Manual) 0.72 k/uL (0-1.0) 12/20/17 04:30 Eosinophils # 0.1 k/uL (0-0.7) 12/22/17 04:23 Eosinophils # (Manual) 0.29 k/uL (0-0.7) 12/20/17 04:30 Basophils # 0.0 k/uL (0-0.2) 12/22/17 04:23 Metamyelocytes # (Man) 0.43 k/uL (0) H 12/20/17 04:30 Myelocytes # (Manual) 0.43 k/uL (0) H 12/20/17 04:30 Nucleated RBCs 0 /100 WBC (0-0) 12/20/17 04:30 Manual Slide Review Performed 12/22/17 04:23 Toxic Granulation Present 12/22/17 04:23 Large Platelets Present 12/18/17 04:30 RBC Morphology Normal 12/11/17 16:55 Polychromasia Present 12/20/17 04:30 Hypochromasia Slight 12/22/17 04:23 Poikilocytosis Slight 12/22/17 04:23 Poikilocytosis (manual Present 12/18/17 04:30 Anisocytosis Slight 12/22/17 04:23 PT 10.1 sec (9.0-12.0) 12/15/17 23:07 INR 1.0 (<1.2) 12/15/17 23:07 APTT 49.0 sec (22.0-30.0) H 12/19/17 04:14 Sample Site [place] 12/22/17 10:36 ABG pH 7.42 (7.35-7.45) 12/22/17 10:36 ABG pCO2 26 mmHg (35-45) L 12/22/17 10:36 ABG pO2 100 mmHg (83-108) 12/22/17 10:36 ABG HCO3 17 mmol/L (21-25) L 12/22/17 10:36 ABG Total CO2 18 mmol/L (19-24) L 12/22/17 10:36 ABG O2 Saturation 98.3 % (94-97) H 12/22/17 10:36 ABG Base Excess -7.4 mmol/L 12/22/17 10:36 ABG Hematocrit 20 % (34.0-46.0) L* 12/11/17 12:13 [place] Test Yes 12/22/17 04:10 ABG Sodium 136 mmol/L (135-146) 12/11/17 12:13 ABG Potassium 4.4 mmol/L (3.4-4.5) 12/11/17 12:13 ABG Ionized Calcium 4.2 mg/dL (4.5-5.3) L 12/11/17 12:13 ABG Glucose 204 mg/dL (75-99) H 12/11/17 12:13 ABG Lactic Acid 0.9 mmol/L (0.5-1.6) 12/21/17 04:30 Hemoglobin 6.4 gm/dL (11.4-16.0) L* 12/11/17 12:13 FiO2 40 % 12/22/17 10:36 Sodium 134 mmol/L (137-145) L 12/22/17 04:23 Potassium 4.1 mmol/L (3.5-5.1) 12/22/17 11:30 Chloride 111 mmol/L (98-107) H 12/22/17 04:23 Carbon Dioxide 16 mmol/L (22-30) L 12/22/17 04:23 Anion Gap 7 mmol/L 12/22/17 04:23 BUN 14 mg/dL (7-17) 12/22/17 04:23 Creatinine 0.90 mg/dL (0.52-1.04) 12/22/17 04:23 Est GFR (CKD-EPI)AfAm 75 (>60 ml/min/1.73 sqM) 12/22/17 04:23 Est GFR (CKD-EPI)NonAf 65 (>60 ml/min/1.73 sqM) 12/22/17 04:23 Glucose 108 mg/dL (74-99) H 12/22/17 04:23 POC Glucose (mg/dL) 146 mg/dL (75-99) H 12/22/17 18:49 POC Glu Line Closer ID Milli Mendoza 12/22/17 18:[address] Glu mg/dL 186 12/08/17 06:55 Hemoglobin A1c 8.1 % (4.0-6.0) H 12/08/17 06:55 Lactic Ac Sepsis Rflx Y 12/15/17 10:17 Plasma Lactic Acid [place] 0.7 mmol/L (0.7-2.0) 12/22/17 09:15 Calcium 7.3 mg/dL (8.4-10.2) L 12/22/17 04:23 Ionized Calcium [place] 4.8 mg/dL (4.5-5.3) 12/22/17 11:30 Phosphorus 3.6 mg/dL (2.5-4.5) 12/22/17 04:23 Magnesium 2.4 mg/dL (1.6-2.3) H 12/22/17 04:23 Total Bilirubin 0.4 mg/dL (0.2-1.3) 12/22/17 04:23 AST 14 U/L (14-36) 12/22/17 04:23 ALT 31 U/L (9-52) 12/22/17 04:23 Alkaline Phosphatase 120 U/L (38-126) 12/22/17 04:23 Total Protein 3.6 g/dL (6.3-8.2) L 12/22/17 04:23 Albumin 1.8 g/dL (3.5-5.0) L 12/22/17 04:23 Triglycerides 204 mg/dL (<150) H 12/22/17 11:30 Cholesterol 129 mg/dL (<200) 12/08/17 06:55 LDL Cholesterol, Calc 45 mg/dL (0-99) 12/08/17 06:55 HDL Cholesterol 66 mg/dL (40-60) H 12/08/17 06:55 Amylase <30 U/L (30-110) L 12/14/17 15:37 Lipase 25 U/L (23-300) 12/14/17 15:37 TSH 2.940 mIU/L (0.465-4.680) 12/08/17 06:55 Arterial Blood Potassium 4.4 mmol/L (3.4-4.5) 12/11/17 12:13 Arterial Blood Glucose 204 mg/dL (75-99) H 12/11/17 12:13 Urine Color Yellow 12/08/17 12:00 Urine Appearance Cloudy (Clear) H 12/08/17 12:00 Urine pH 7.5 (5.0-8.0) 12/08/17 12:00 Ur Specific [place] 1.044 (1.001-1.035) H 12/08/17 12:00 Urine Protein Negative (Negative) 12/08/17 12:00 Urine Glucose (UA) Negative (Negative) 12/08/17 12:00 Urine Ketones Negative (Negative) 12/08/17 12:00 Urine Blood Moderate (Negative) H 12/08/17 12:00 Urine Nitrite Negative (Negative) 12/08/17 12:00 Urine Bilirubin Negative (Negative) 12/08/17 12:00 Urine Urobilinogen <2.0 mg/dL (<2.0) 12/08/17 12:00 Ur Leukocyte Esterase Small (Negative) H 12/08/17 12:00 Urine RBC 2 /hpf (0-5) 12/08/17 12:00 Urine WBC 3 /hpf (0-5) 12/08/17 12:00 Ur Squamous Epith Cells 1 /hpf (0-4) 12/08/17 12:00 Urine Bacteria Occasional /hpf (None) H 12/08/17 12:00 Urine Mucus Rare /hpf (None) H 12/08/17 12:00 Stool Occult Blood Positive (Negative) H 12/16/17 04:45 Stl Cryptosporidium Ag Negative (Negative) 12/15/17 14:15 Stool Giardia Source Stool 12/15/17 14:15 Stl Giardia Antigen Negative (Negative) 12/15/17 14:15 Vancomycin Trough 17.7 ug/mL 12/16/17 08:33 C. difficile (EIA) Intrp Negative (Negative) 12/16/17 10:35 Hepatitis A IgM Ab Non-Reactive (Non-Reactive) 12/08/17 06:55 Hep Bs Antigen Non-Reactive (Non-Reactive) 12/08/17 06:55 Hep B Core IgM Ab Non-Reactive (Non-Reactive) 12/08/17 06:55 Hep C IgG Ab Non-Reactive (Non-Reactive) 12/08/17 06:55 Blood Type B Positive 12/20/17 11:26 Blood Type Confirm B Positive 12/10/17 10:21 Blood Type Recheck No 12/20/17 11:26 Antibody Screen NEGATIVE 12/20/17 11:26 Crossmatch See Detail 12/20/17 11:26 Transfuse Platelets 12/11/17 12/10/17 05:38 Spec Expiration Date 12/23/2017 - 232512/20/17 11:26 Microbiology 12/13/17 22:12 Blood Blood Culture - Final No Growth after 144 hours 12/15/17 14:15 Stool Stool Culture - Final 12/12/17 17:00 Urine,Catheterized Urine Culture - Final 12/08/17 12:00 Urine,Clean Catch Urine Culture - Final Escherichia coli 12/08/17 12:00 Nasal Swab Nasal Screen MRSA/MSSA - Final Assessment and Plan (1) E. coli sepsis Narrative/Plan: 72 year old woman with history of CAD failed stress test now s/p CABG and was progressing but developed fever to 102. Found to have UTI and is now improving. He doesn't history of chronic back pain been of some contention over the last day because of excess sedation from her pain medications. She currently is on minimal premedication with orders to ensure that she is at least sitting up and getting some ambulation. Her shortness of breath is definitely improved her chest is without significant pain. She does have a history of urinary tract infections in the past, since the Almaguer is out she has some minimal discomfort but does not feel miserable. She's had difficulty with incontinence since the Almaguer has been removed, bladder scan was performed with only 200 mL noted. She does have a urine culture with Escherichia coli that is resistant to quinolone therapy. With her fever the antibiotic therapy was enhance Zosyn and vancomycin. Sternal wound does not appear to be infected at the moment does not seem to have pneumonia. 12/15/2017 reveals the patient to have a change of her status in that she developed abdominal pain as well as worsening of her status. This concerns to ischemic colitis and she was moved to the intensive care unit. She's been seen by general surgery. It is being monitored. She had worsening lactic acidosis is now showing improvement after fluid challenge. She is not having chest pain and her shortness of breath continues to improve. Blood cultures are negative but urine culture did have E. coli years that she does have significant underlying infection in the urinary system. Treatment has been with Zosyn which should also cover ischemic colitis at that is occurring at this time. There are concerns to bowel compromise possibly for microemboli in the postoperative time frame. With this heparin has been started. Cultures are process and she'll be monitored. Her significant leukocytosis showing some slight improvement. 12/18/2017 the patient is having some improvement. She is not having as much pain and is able to tolerate some oral intake with clear liquids and has had some flatus. Abdominal pain is steadily improved and overall feels better. Leukocytosis is trending to improvement. X-ray shows evidence of some worsening of the hilar edema.there are no new positive cultures on the E. coli has been isolated. Antibiotic therapy with Zosyn to complete 7 days of therapy for her E. coli urinary tract infection. Surgery is following for the transient ischemic colitis she's been anticoagulated, and final plans are being developed as far as her long-term anticoagulation. The lactic acidosis completely resolved. December 21 2017 after the patient had a major change in her statusand was found evidence of ischemic colitis in the transverse and right colon and underwent colectomy and ileostomy placement. She's now having some improvement in her vasopressor therapy has now been put on hold with resolution of the hypotension. Patient seems to be comfortable. With her significant change of status antimicrobial therapy was migrated to meropenem and Eraxis pending culture results.she has a persistent leukocytosis related to the current sepsis which is showing some improvement. She did have profound anemia and was transfused and seems to be stable at this time. No Evidence of any new acute bleeding. 12/22/2017 the patient is now extubated and comfortable. Gastrointestinal function recovery is awaited and peripheral nutrition has been established. Leukocytosis is improving. She no longer is requiring vasopressor therapy. Seems responding well to meropenem and Eraxis and these will continue for now. Patient's family is present and course in therapy are discussed including the need for rehab after discharge. Status: Acute Code(s): A41.51 - SEPSIS DUE TO ESCHERICHIA COLI [E. COLI] SNOMED Code(s): 998954278 (2) Urinary tract infection Current Visit: Yes Status: Acute Code(s): N39.0 - URINARY TRACT INFECTION, SITE NOT SPECIFIED SNOMED Code(s): 04677763 (3) Coronary artery disease involving left main coronary artery Current Visit: Yes Status: Chronic Code(s): I25.10 - ATHSCL HEART DISEASE OF [place] CORONARY ARTERY W/O ANG PCTRS SNOMED Code(s): 439071796 (4) Fever Current Visit: Yes Status: Acute Code(s): R50.9 - FEVER, UNSPECIFIED SNOMED Code(s): 880803155
[2017-12-22 23:53] LABS: Glucose,Whole Blood 135 mg/dL (75-99)
[2017-12-23] MEDS: HYDROmorphone 1 MG/ML 1 ML SYRINGE IVP PRN ×5 (01:32→21:11)
[2017-12-23] MEDS: MVI, ADULT NO.4 WITH VIT K 10 ML, TRACE (CONC-1ML/DOSE) 1 ML in AMINO ACID 4.25%-D10W+L... IV SCH ×3 (04:00)
[2017-12-23 04:58] LABS: Anisocytosis Slight; Basophils % (A) 0 %; Eosinophils # (A) 0.3 k/uL (0-0.7); Eosinophils % (A) 1 %; HCT 28.7 % (34.0-46.0); HGB 8.7 gm/dL (11.4-16.0); Hypochromasia Moderate; Lymphocytes # (A) 0.6 k/uL (1.0-4.8); Lymphocytes % (A) 2 %; MCHC 30.4 g/dL (31.0-37.0); MCV 88.6 fL (80.0-100.0); Monocytes # (A) 0.7 k/uL (0-1.0); Monocytes % (A) 2 %; Neutrophils # (A) 27.6 k/uL (1.3-7.7); Neutrophils % (A) 94 %; Platelet Count 374 k/uL (150-450); Poikilocytosis Slight; RBC 3.23 m/uL (3.80-5.40); RDW 16.5 % (11.5-15.5)
[2017-12-23 05:28] LABS: WBC 29.4 k/uL (3.8-10.6)
[2017-12-23] MEDS: METOPROLOL TARTRATE 5 MG/5 ML VIAL IVP SCH ×3 (05:34→17:18)
[2017-12-23 06:10] LABS: Ionized Calcium 5.1 mg/dL (4.5-5.3)
[2017-12-23 06:27] LABS: ALT 28 U/L (9-52); AST 23 U/L (14-36); Alkaline Phosphatase 142 U/L (38-126); Anion Gap 6 mmol/L; Blood Urea Nitrogen 17 mg/dL (7-17); Calcium 7.8 mg/dL (8.4-10.2); Carbon Dioxide 19 mmol/L (22-30); Chloride 113 mmol/L (98-107); Glucose 134 mg/dL (74-99); Magnesium 2.5 mg/dL (1.6-2.3); Phosphorus 3.1 mg/dL (2.5-4.5); Potassium 4.3 mmol/L (3.5-5.1); Sodium 138 mmol/L (137-145); Total Bilirubin 0.5 mg/dL (0.2-1.3); Total Protein 4.3 g/dL (6.3-8.2)
[2017-12-23] MEDS: INSULIN ASPART 100 UNIT/ML 1 ML 10 ML VIAL SQ SCH ×3 (06:43→18:40)
[2017-12-23] MEDS ORDERED: FUROSEMIDE 10 MG/ML 4 ML VIAL IV STA (06:52)
--- NOTE | 2017-12-23 06:56 | XR ---
EXAMINATION TYPE: XR chest 1V portable DATE OF EXAM: 12/23/2017 HISTORY: Tube placement. REFERENCE: Previous study dated 12/22/2017. FINDINGS: There has been a midline sternotomy. The patient has been extubated. An NG tube remains in place with its tip in the stomach. A right internal jugular catheter is in place. Its tip is in the r ight atrium. There continues to be left basilar airspace disease. There is a left-sided effusion. Heart size upper limits of normal. IMPRESSION: NO SIGNIFICANT INTERVAL CHANGE IN THE APPEARANCE OF THE CHEST.
[2017-12-23] MEDS ORDERED: METOPROLOL TARTRATE 5 MG/5 ML VIAL IVP ONE ×2 (07:23→17:16)
[2017-12-23] MEDS: IPRATROPIUM-ALBUTEROL 3 ML NEB INHALATION SCH ×4 (08:07→20:06)
[2017-12-23] MEDS: CHLORHEXIDINE GLUCONATE 15 ML CUP MUCOUS MEM SCH (08:14)
[2017-12-23] MEDS: LEVOTHYROXINE IVP 100 MCG/5 ML VIAL IV SCH (08:21)
[2017-12-23] MEDS: HEPARIN SODIUM,PORCINE 5,000 UNIT/ML 1 ML VIAL SQ SCH ×2 (08:23→17:06)
[2017-12-23] MEDS: ANIDULAFUNGIN 100 MG in SODIUM CHLORIDE 0.9% 100 ML IVPB SCH (08:23)
[2017-12-23] MEDS: PANTOPRAZOLE 40 MG/10 ML VIAL IVP SCH (08:23)
--- NOTE | 2017-12-23 08:55 | P.PN ---
Subjective Progress Note Date: 12/23/17 Principal diagnosis: Coronary artery disease with critical left main disease. Preserved left ventricular function. Previous medical history of hypertension, hyperlipidemia , diabetes mellitus with preoperative hemoglobin A1c 8.1%, hypothyroid, chest granulomatous disease, peripheral vascular disease status post right fem-pop bypass, previous tobacco dependence with FEV1 109% of predicted in November 2016, recent fall in June 2017 with torn right rotator cuff, questionable DVT with previous Coumadin use greater than 2 years ago, syncopal episodes, paroxysmal atrial fibrillation, chronic low back pain, obesity, and depression. Preoperative E. coli urinary tract infection. POD #12 urgent quadruple coronary artery bypass grafting using the left internal mammary sequentially to the diagonal artery and to the left anterior descending artery, reverse saphenous vein graft from the aorta to the first obtuse marginal, reverse saphenous vein graft from the aorta to the third obtuse marginal artery. Bilateral pulmonary vein isolation using the AtriCure radiofrequency clamp. Exclusion of the left atrial appendage using a 35 mm AtriClip. Intraoperative transesophageal echocardiogram and epi-aortic scanning. Postoperative elevation in transaminases, an unexpected outcome, resolving. Leukocytosis, present preoperatively. Postoperative diarrhea, an unexpected outcome. Postoperative normocytic, normochromic anemia, and expected outcome of surgery secondary to cardiopulmonary bypass and hemodilution. Postoperative urinary retention, an unexpected outcome. Postoperative pneumoperitoneum, an unexpected outcome. Necrosis of the transverse colon, right colon, an unexpected outcome. POD #2 right colectomy, transverse colectomy, takedown splenic flexure, ileostomy performed by Dr. Montoya. Postoperative prolonged mechanical ventilation, need to be reintubated for second surgery, an unexpected outcome. Patient's currently lying in bed in the intensive care unit in no acute distress. Was successfully extubated yesterday morning. Was a little more lethargic with foggy mentation this morning, had just received IV Dilaudid. Wound VAC was placed yesterday to abdominal open incision. No stool yet in ileostomy. Objective - Vital Signs Vital signs: Vital Signs Temp 99.3 F 12/23/17 08:00 Pulse 90 12/23/17 08:20 Resp 18 12/23/17 08:00 BP 189/87 12/23/17 08:00 Pulse Ox 94 L 12/23/17 08:00 Intake & Output 12/22/17 12/23/17 12/23/17 18:59 06:59 18:59 Intake Total 3583.898 8079.5 88 Output Total 1155 1635 525 Balance 437.056 57.5 -437 Weight 100.2 kg 103.5 kg Intake: IV 778 1115 88 ACETAMINOPHEN IV (For NPO 100 ) 1,000 mg In Empty Bag 1 bag @ 400 mls/hr IVPB Q6HR [facility] Rx#:[id number] Amino Acid 4.25%-D10w+ 732 65 Lytes*E* 1,000 ml @ 65 mls/hr IV .BY DURATION [facility] Rx#:[id number] Meropenem 2 gm In Sodium 100 Chloride 0.9% 100 ml @ 200 mls/hr IVPB Q12HR [facility] Rx#:[id number] Potassium Chloride 10 meq 100 In Water For Injection 1 100ml.bag @ 100 mls/hr IVPB Q1H [facility] Rx#: [id number] Pressure Bags 78 63 3 Sodium Chloride 0.9% 1, 500 220 20 000 ml @ 125 mls/hr IV . Q8H [facility] Rx#:[id number] Intake, IV Titration 814.056 577.5 Amount Anidulafungin 100 mg In 100 Sodium Chloride 0.9% 100 ml @ 84 mls/hr IVPB DAILY [facility] Rx#:[id number] Meropenem 2 gm In Sodium 100 Chloride 0.9% 100 ml @ 200 mls/hr IVPB Q12HR [facility] Rx#:[id number] Mvi, Adult No.4 with Vit 350 577.5 K 10 ml Trace (Conc-1Ml/ Dose) 1 ml In Amino Acid 4.25%-D10w+Lytes*E* 1,000 ml @ 50 mls/hr IV . [id number] [facility] Rx#:[id number] Propofol 1,000 mg In 104.056 Empty Bag 1 bag @ Titrate IV .Q0M [facility] Rx#: [id number] Sodium Chloride 0.9% 1, 160 000 ml @ 20 mls/hr IV . Q24H [facility] Rx#:[id number] Output: Gastric Drainage 250 600 Drainage 500 Medial Abdomen 500 Urine 635 535 525 Stool 270 Other: Voiding Method Indwelling Catheter Indwelling Catheter ABP, PAP, CO, CI - Last Documented Arterial Blood Pressure 159/93 Pulmonary Artery Pressure 4/4 Cardiac Output 4.5 Cardiac Index 2.5 - Constitutional General appearance: Present: cooperative, no acute distress, obese - Respiratory Details: Lungs sounds diminished bilaterally, left side greater than right with scattered rhonchi. Respirations even, nonlabored. Currently on 2 L nasal cannula with oxygen saturation 94%. Unable to use incentive spirometry appropriately as she is barely able to keep her eyes open. - Cardiovascular Details: S1, S2 present. Regular rate and rhythm, sinus rhythm with occasional PVCs on telemetry. Sternum stable. Bilateral DP/PT pulses by Doppler. Generalized nonpitting edema present. Right internal jugular central line present. Current CVP 11-18. Antiembolism stockings, SCDs present. - Gastrointestinal Gastrointestinal Comment(s): Abdomen soft, nondistended. Very hypoactive bowel sounds present. Right lower quadrant ileostomy present with green bile drainage, no stool yet. NG tube present to low intermittent suction with 600 mL green thin drainage in the last 12 hours. - Genitourinary Genitourinary Comment(s): Almaguer present draining clear, yellow urine. Output is 35-50 mL per hour overnight, 525 mL diuresis after IV Lasix given this morning. - Integumentary Integumentary Comment(s): Skin is cool and dry. Anterior chest incision well approximated with dry intact dressing present. Left lower semi-EVH site well approximated. Midline abdominal incision clean, andrei intact, wound VAC applied to proximal and distal open incisions with 600 mL output overnight. - Neurologic Neurologic: Present: CNII-XII intact - Musculoskeletal Musculoskeletal: Present: generalized weakness, strength equal bilaterally - Psychiatric Psychiatric Comment(s): Sleepy but arousable. Oriented to person and date. Flat affect. - Allied health notes Allied health notes reviewed: nursing - Labs CBC & Chem 7: 12/23/17 04:32 12/23/17 04:32 Labs: Abnormal Lab Results - Last 24 Hours (Table) 12/22/17 12/22/17 12/22/17 Range/Units 04:23 10:36 11:30 WBC (3.8-10.6) k/uL RBC (3.80-5.40) m/uL Hgb (11.4-16.0) gm/dL Hct (34.0-46.0) % MCHC (31.0-37.0) g/dL RDW (11.5-15.5) % Neutrophils # (1.3-7.7) k/uL Lymphocytes # (1.0-4.8) k/uL ABG pCO2 26 L (35-45) mmHg ABG HCO3 17 L (21-25) mmol/L ABG Total CO2 18 L (19-24) mmol/L ABG O2 Saturation 98.3 H (94-97) % Chloride (98-107) mmol/L Carbon Dioxide (22-30) mmol/L Glucose (74-99) mg/dL POC Glucose (mg/dL) (75-99) mg/dL Calcium (8.4-10.2) mg/dL Magnesium (1.6-2.3) mg/dL Alkaline Phosphatase (38-126) U/L Total Protein (6.3-8.2) g/dL Albumin (3.5-5.0) g/dL Prealbumin <5.0 L (18.0-42.0) mg/dL Triglycerides 204 H (<150) mg/dL 12/22/17 12/22/17 12/22/17 Range/Units 11:32 18:49 23:51 WBC (3.8-10.6) k/uL RBC (3.80-5.40) m/uL Hgb (11.4-16.0) gm/dL Hct (34.0-46.0) % MCHC (31.0-37.0) g/dL RDW (11.5-15.5) % Neutrophils # (1.3-7.7) k/uL Lymphocytes # (1.0-4.8) k/uL ABG pCO2 (35-45) mmHg ABG HCO3 (21-25) mmol/L ABG Total CO2 (19-24) mmol/L ABG O2 Saturation (94-97) % Chloride (98-107) mmol/L Carbon Dioxide (22-30) mmol/L Glucose (74-99) mg/dL POC Glucose (mg/dL) 108 H 146 H 135 H (75-99) mg/dL Calcium (8.4-10.2) mg/dL Magnesium (1.6-2.3) mg/dL Alkaline Phosphatase (38-126) U/L Total Protein (6.3-8.2) g/dL Albumin (3.5-5.0) g/dL Prealbumin (18.0-42.0) mg/dL Triglycerides (<150) mg/dL 12/23/17 12/23/17 Range/Units 04:32 04:32 WBC 29.4 H* (3.8-10.6) k/uL RBC 3.23 L (3.80-5.40) m/uL Hgb 8.7 L (11.4-16.0) gm/dL Hct 28.7 L (34.0-46.0) % MCHC 30.4 L (31.0-37.0) g/dL RDW 16.5 H (11.5-15.5) % Neutrophils # 27.6 H (1.3-7.7) k/uL Lymphocytes # 0.6 L (1.0-4.8) k/uL ABG pCO2 (35-45) mmHg ABG HCO3 (21-25) mmol/L ABG Total CO2 (19-24) mmol/L ABG O2 Saturation (94-97) % Chloride 113 H (98-107) mmol/L Carbon Dioxide 19 L (22-30) mmol/L Glucose 134 H (74-99) mg/dL POC Glucose (mg/dL) (75-99) mg/dL Calcium 7.8 L (8.4-10.2) mg/dL Magnesium 2.5 H (1.6-2.3) mg/dL Alkaline Phosphatase 142 H (38-126) U/L Total Protein 4.3 L (6.3-8.2) g/dL Albumin 2.0 L (3.5-5.0) g/dL Prealbumin (18.0-42.0) mg/dL Triglycerides (<150) mg/dL - Imaging and Cardiology Chest x-ray: report reviewed, image reviewed Assessment and Plan (1) Coronary artery disease involving left main coronary artery Current Visit: Yes Status: Chronic Code(s): I25.10 - ATHSCL HEART DISEASE OF [place] CORONARY ARTERY W/O ANG PCTRS SNOMED Code(s): 636875178 (2) Hypertension Current Visit: Yes Status: Chronic Code(s): I10 - ESSENTIAL (PRIMARY) HYPERTENSION SNOMED Code(s): 94164139 (3) Hyperlipidemia Current Visit: Yes Status: Chronic Code(s): E78.5 - HYPERLIPIDEMIA, UNSPECIFIED SNOMED Code(s): 63894107 (4) Diabetes Current Visit: Yes Status: Chronic Code(s): E11.9 - TYPE 2 DIABETES MELLITUS WITHOUT COMPLICATIONS SNOMED Code(s): 79345097 (5) Peripheral vascular disease Current Visit: Yes Status: Chronic Code(s): I73.9 - PERIPHERAL VASCULAR DISEASE, UNSPECIFIED SNOMED Code(s): 631229562 (6) Family history of heart disease Current Visit: Yes Status: Chronic Code(s): Z82.49 - FAMILY HX OF ISCHEM HEART DIS AND OTH DIS OF THE CIRC SYS SNOMED Code(s): 833572645 (7) Tobacco dependence in remission Current Visit: No Status: Resolved Code(s): F17.201 - NICOTINE DEPENDENCE, UNSPECIFIED, IN REMISSION SNOMED Code(s): 098418002 (8) Hypothyroid Current Visit: Yes Status: Chronic Code(s): E03.9 - HYPOTHYROIDISM, UNSPECIFIED SNOMED Code(s): 15256014 (9) Syncopal episodes Current Visit: No Status: Chronic Code(s): R55 - SYNCOPE AND COLLAPSE SNOMED Code(s): 404617676 (10) History of DVT (deep vein thrombosis) Current Visit: No Status: Resolved Code(s): Z86.718 - PERSONAL HISTORY OF OTHER VENOUS THROMBOSIS AND EMBOLISM SNOMED Code(s): 872564653 (11) History of atrial fibrillation Current Visit: No Status: Resolved Code(s): Z86.79 - PERSONAL HISTORY OF OTHER DISEASES OF THE CIRCULATORY SYSTEM SNOMED Code(s): 510565769 (12) Chronic low back pain Current Visit: Yes Status: Chronic Code(s): M54.5 - LOW BACK PAIN; G89.29 - OTHER CHRONIC PAIN SNOMED Code(s): 387821170 (13) Depression Current Visit: Yes Status: Chronic Code(s): F32.9 - MAJOR DEPRESSIVE DISORDER, SINGLE EPISODE, UNSPECIFIED SNOMED Code(s): 91542075 Plan: 1. Continue aspirin, statin, Plavix, subcu heparin, beta sheree. Will increase beta sheree therapy as tolerated. IV Vasotec added for better blood pressure control, patient was on olmesartan at home. 2. Bronchodilators per pulmonology. Lasix 40 mg IV push given 1 dose this morning by Dr. Salas with excellent diuresis. 3. Continue amiodarone for A. fib prophylaxis. Will need anticoagulation once patient is more stable and all lines and tubes have been discontinued. 4. Continue meropenem, Eraxis per Dr. Mccartney. 5. Continue NG tube to low intermittent suction. Monitor output from NG tube and ileostomy. 6. Continue PPN for nutrition per Dr. Salas. Dietary consult in place. Pre -albumin drawn yesterday less than 5. 7. Keep Almaguer for strict accurate I and O's, urinary retention. 8. Left pleural effusion present. May need to be drained. 9. Monitor daily labs, chest x-rays. 10. GI/DVT prophylaxis. 11. Pain control with current medication regimen. Limit narcotics. IV Tylenol and Toradol readded for pain control. 12. Insulin/diabetic management per Dr. Yousif. 13. Wound VAC per general surgery to abdominal incisions. Will change Monday, Monday, Monday. 14. More recommendations to follow based on patient's clinical course. Time with Patient: Greater than 30
[2017-12-23] MEDS: MEROPENEM 2 GM in SODIUM CHLORIDE 0.9% 100 ML IVPB SCH ×2 (09:38→21:09)
[2017-12-23] MEDS: ACETAMINOPHEN IV (For NPO) 1,000 MG in EMPTY BAG 1 BAG IVPB SCH ×2 (11:07→17:40)
[2017-12-23] MEDS: AMIODARONE 200 MG TAB PO SCH ×2 (11:27→21:09)
[2017-12-23] MEDS: CLOPIDOGREL 75 MG TAB PO SCH (11:27)
[2017-12-23] MEDS: ATORVASTATIN 40 MG TAB PO SCH (11:27)
[2017-12-23] MEDS: ASPIRIN 81 MG PO SCH (11:27)
[2017-12-23] MEDS: DULoxetine HCL 60 MG CAPSULE.DR PO SCH (11:27)
[2017-12-23] MEDS: KETOROLAC 30 MG/ML 1 ML VIAL IVP SCH ×2 (11:34→17:32)
[2017-12-23] MEDS ORDERED: ENALAPRILAT 1.25 MG/ML 1 ML VIAL IVP SCH (12:00)
--- NOTE | 2017-12-23 12:34 | P.PN ---
Subjective Progress Note Date: 12/23/17 This is a pleasant 72-year-old female patient with coronary artery disease, critical left main disease and preserved left ventricular function. She has history of hypertension, hyperlipidemia, and paroxysmal atrial fibrillation. We are following her postoperatively. She underwent urgent quadruple coronary artery bypass grafting with CHARLES to the diagonal coronary artery and left anterior descending artery, reverse greater saphenous cream vein graft to the first and third OM coronary arteries 11 days ago. Postoperatively, patient spiked a 102 temperature. Lactic acid level was high she was found to have E. coli in her urine. She is being followed by infectious disease. She is being treated with IV antibiotics. She also underwent CT of the abdomen which showed mild wall thickening and pericolonic stranding right hemicolon at the level of the cecum which may reflect nonspecific colitis. on the , patient developed abdominal discomfort associated with severe diarrhea. Chest x-ray showed pneumoperitoneum and subsequent computed tomography scan of the abdomen showed pneumoperitoneum. Patient was taken to the OR emergently and underwent colectomy with colostomy. Abdominal wall wound with wound VAC in place. Patient complains of some significant discomfort as her pain medications have been decreased due to some altered mental status and decreased level of consciousness. Her blood pressure is significantly elevated despite administration of IV enalapril and IV metoprolol. Objective - Vital Signs Vital signs: Vital Signs Temp 99.3 F 12/23/17 08:00 Pulse 91 12/23/17 12:00 Resp 19 12/23/17 12:00 BP 178/111 12/23/17 12:00 Pulse Ox 96 12/23/17 12:00 Intake & Output 12/22/17 12/23/17 12/23/17 18:59 06:59 18:59 Intake Total 0150.206 0814.5 512 Output Total 1155 1635 1750 Balance 437.056 57.5 -1238 Weight 100.2 kg 103.5 kg Intake: IV 778 1115 412 ACETAMINOPHEN IV (For NPO 100 ) 1,000 mg In Empty Bag 1 bag @ 400 mls/hr IVPB Q6HR [facility] Rx#:[id number] Amino Acid 4.25%-D10w+ 732 260 Lytes*E* 1,000 ml @ 65 mls/hr IV .BY DURATION [facility] Rx#:[id number] Meropenem 2 gm In Sodium 100 100 Chloride 0.9% 100 ml @ 200 mls/hr IVPB Q12HR [facility] Rx#:[id number] Potassium Chloride 10 meq 100 In Water For Injection 1 100ml.bag @ 100 mls/hr IVPB Q1H [facility] Rx#: [id number] Pressure Bags 78 63 12 Sodium Chloride 0.9% 1, 500 220 40 000 ml @ 125 mls/hr IV . Q8H [facility] Rx#:[id number] Intake, IV Titration 814.056 577.5 100 Amount ACETAMINOPHEN IV (For NPO 100 ) 1,000 mg In Empty Bag 1 bag @ 400 mls/hr IVPB Q6HR [facility] Rx#:[id number] Anidulafungin 100 mg In 100 Sodium Chloride 0.9% 100 ml @ 84 mls/hr IVPB DAILY [facility] Rx#:[id number] Meropenem 2 gm In Sodium 100 Chloride 0.9% 100 ml @ 200 mls/hr IVPB Q12HR [facility] Rx#:[id number] Mvi, Adult No.4 with Vit 350 577.5 K 10 ml Trace (Conc-1Ml/ Dose) 1 ml In Amino Acid 4.25%-D10w+Lytes*E* 1,000 ml @ 50 mls/hr IV . [id number] [facility] Rx#:[id number] Propofol 1,000 mg In 104.056 Empty Bag 1 bag @ Titrate IV .Q0M [facility] Rx#: [id number] Sodium Chloride 0.9% 1, 160 000 ml @ 20 mls/hr IV . Q24H [facility] Rx#:[id number] Output: Gastric Drainage 250 600 Drainage 500 Medial Abdomen 500 Urine 809 737 4613 Stool 270 Other: Voiding Method Indwelling Catheter Indwelling Catheter ABP, PAP, CO, CI - Last Documented Arterial Blood Pressure 159/93 Pulmonary Artery Pressure 4/4 Cardiac Output 4.5 Cardiac Index 2.5 - Exam PHYSICAL EXAMINATION: HEENT: [Head is atraumatic, normocephalic. Pupils equal, round. Neck is supple. There is no elevated jugular venous pressure.] HEART EXAMINATION: [Heart sounds regular, S1 and S2 normal. No murmur or gallop heard.] CHEST EXAMINATION:[ Lungs reveal diminished air entry throughout. No chest wall tenderness is noted on palpation or with deep breathing. Midsternal incision with dressing dry and intact.] ABDOMEN: [ Soft, tender. Bowel sounds are absent. right-sided colostomy and mid lower abdominal wound VAC in place]. EXTREMITIES:[ 2+ peripheral pulses with no evidence of peripheral edema and no calf tenderness noted. Knee-high KURT hose and sequential compression devices in place bilaterally to lower extremities]. NEUROLOGIC [patient is awake, alert and oriented x2.] . - Labs CBC & Chem 7: 12/23/17 04:32 12/23/17 04:32 Labs: Abnormal Lab Results - Last 24 Hours (Table) 12/22/17 12/22/17 12/22/17 Range/Units 04:23 11:30 18:49 WBC (3.8-10.6) k/uL RBC (3.80-5.40) m/uL Hgb (11.4-16.0) gm/dL Hct (34.0-46.0) % MCHC (31.0-37.0) g/dL RDW (11.5-15.5) % Neutrophils # (1.3-7.7) k/uL Lymphocytes # (1.0-4.8) k/uL Chloride (98-107) mmol/L Carbon Dioxide (22-30) mmol/L Glucose (74-99) mg/dL POC Glucose (mg/dL) 146 H (75-99) mg/dL Calcium (8.4-10.2) mg/dL Magnesium (1.6-2.3) mg/dL Alkaline Phosphatase (38-126) U/L Total Protein (6.3-8.2) g/dL Albumin (3.5-5.0) g/dL Prealbumin <5.0 L (18.0-42.0) mg/dL Triglycerides 204 H (<150) mg/dL 12/22/17 12/23/17 12/23/17 Range/Units 23:51 04:32 04:32 WBC 29.4 H* (3.8-10.6) k/uL RBC 3.23 L (3.80-5.40) m/uL Hgb 8.7 L (11.4-16.0) gm/dL Hct 28.7 L (34.0-46.0) % MCHC 30.4 L (31.0-37.0) g/dL RDW 16.5 H (11.5-15.5) % Neutrophils # 27.6 H (1.3-7.7) k/uL Lymphocytes # 0.6 L (1.0-4.8) k/uL Chloride 113 H (98-107) mmol/L Carbon Dioxide 19 L (22-30) mmol/L Glucose 134 H (74-99) mg/dL POC Glucose (mg/dL) 135 H (75-99) mg/dL Calcium 7.8 L (8.4-10.2) mg/dL Magnesium 2.5 H (1.6-2.3) mg/dL Alkaline Phosphatase 142 H (38-126) U/L Total Protein 4.3 L (6.3-8.2) g/dL Albumin 2.0 L (3.5-5.0) g/dL Prealbumin (18.0-42.0) mg/dL Triglycerides (<150) mg/dL Assessment and Plan Assessment: #1 coronary artery disease #2 status post CABG 4 #3 diabetes #4 hyperlipidemia #5 hypertension #6 paroxysmal atrial fibrillation #7 perforated viscus #8 status post colectomy and colostomy Plan: From quality control checker perspective, for the time being as patient is nothing by mouth we will add clonidine patch. Continue to monitor the patient closely and provide further recommendations accordingly. OUTBOUND TELEMARKETER note has been reviewed, I agree with a documented findings and plan of care. Patient was seen and examined.
--- NOTE | 2017-12-23 12:41 | P.PN ---
Subjective Progress Note Date: 12/23/17 On today's evaluation of a 12/18/2017 Carolyn is back to the intensive care unit. She is postop day #7 following her coronary artery bypass surgery. She got transferred because of an extensive liquidy/watery diarrhea which left her into a dehydrated state and causes some non-anion gap metabolic acidosis. Her bicarb level is down to 14. She had 3 additional liquidy bowel movements this morning. The patient was seen by general surgery. CAT scan of the abdomen was done raising the possibility of an underlying ischemic colitis. She was placed on accommodation Zosyn and vancomycin. No fever or chills. She also had gone into atrial fibrillation. The rate is controlled right now with metoprolol and amiodarone and the patient is also on IV heparin. She is complaining of pain throughout her chest and body mainly in the joints and she has been taken hydrocodone outpatient basis. I restarted her on [place] 5 every 6 hours for pain control pH is using incentive spirometer. She is on IV fluids and she'll be started on a bicarb drip. The patient's chest x-ray from today showed small bilateral pleural effusion and basilar atelectasis and left lung base. There is also artifact from external objects on the chest x-ray. The postoperative echocardiogram showed a preserved LV function with an ejection fraction of 50-55 %. No valvular abnormalities noted. On today's evaluation of 12/19/2017, the patient is awake and alert and sitting up on a chair. The diarrhea has subsided significantly. She only had liquidy loose bowel movement there was small amount this morning. Otherwise, the patient is was resuscitated IV fluids. The patient received a bicarb infusion yesterday and her serum bicarb normalizes and earlier this morning associated to a normal saline infusion at the rate of 75 mL an hour. Her urine output is around 20-25 mL an hour. The patient's creatinine is normal. BUN is down to 7. Vascular electrodes are all within normal limits and her bicarb level is normalized. No nausea. No vomiting. No abdominal pain. She is taking clear liquid diet. No chest pain. Chest x-ray shows some mild pulmonary vascular congestion and atelectatic changes in lung bases bilaterally. She is on room air oxygen. Sternum stable clean and intact. She has E. coli in the urine and she is on IV Zosyn. Vancomycin was discontinued. IV heparin was discontinued. Her current rhythm is sinus. On 12/20/2017 the patient developed some vague abdominal pain. This pain started approximately 4 AM in the morning. As mentioned earlier the patient is postop from coronary artery bypass surgery and she is postop day #8. The patient is currently in the intensive care unit. X-ray of the chest was done this morning and it showed free air under the diaphragm. This is consistent with pneumoperitoneum and the patient will need further investigation. Immediately the general surgeon was contacted and the patient had a CAT scan of the abdomen and it showed moderate pneumoperitoneum with site of the perforation i not identified although there was suspicion that maybe the distal stomach/duodenal area. The patient currently on IV Zosyn. No cervical leukocytosis. Urine output is dropped down to 20 mL an hour. Her white count from this morning's at 14.3. Patient be taken to the operating room for an expected laparotomy. No altered mentation. No cough or sputum production. No other complaints otherwise for now. On 12/21/2017 I'm seeing this patient for a follow-up. She is a critically ill female patient was taken to the operating room yesterday for an acute bowel perforation. The patient was found to have pneumoperitoneum and the patient was taken to the operating room and the patient underwent expiratory laparotomy and right colectomy and transverse colectomy and takedown of splenic flexure and diverticular colostomy. The patient intraoperatively was found to have necrosis of the transverse colon and the right colon. Postop, the patient was kept intubated and the patient was moved to the intensive care unit for further evaluation and management. Overnight the patient was given fluid aggressively. She was given IV albumin. She was given lactated Ringer solution and normal saline solution. She did drop her pressure and she had also to placed on pressors and she is currently on 3-4 mics of norepinephrine infusion to maintain a mean artery pressure above 65. This morning I give her another liter of lactated Ringer and nontender albumin 5% to bring her CVP above 12. Hemoglobin dropped down to 6.7. Her white count came up to 31.4 and subsequently dropped down to 23. This is expected as the patient had a bowel necrosis and intra-abdominal sepsis. Antibiotic dressings were done and the patient was placed on Merrem and Eraxis. Earlier this morning the patient was on assist-control mode of ventilation and was obvious that the patient was asynchronous and double stacking on a mechanical ventilator. This was occurring even while on 40 mics of Diprivan infusion. Based on this, necessary vent changes were done. The patient was air hungry and she was taken significantly high tidal volumes. I was able to bring the tidal volume of 600 and the rate of 18 with a FiO2 of 40% and a PEEP of 5. Chest x-ray from today showed that the patient had adequate expansion of both lungs. There is a left- sided pleural effusion and ET tube is around 3-4 cm above the al. The net fluid balance over the past 24 hours is +6 L in the urine output is adequate for now. The patient is afebrile. On 12/22/2017 I'm seeing this patient for a follow-up. Note that the patient is postop day #2 following chest was colectomy, right colectomy and ileostomy and the patient is postop day #11 following her coronary artery bypass surgery. This morning the patient was sedated with Diprivan and she was calm and comfortable. Despite being on Diprivan, the patient was easily arousable. She was maintained on assist control mode of ventilation. Throughout the night the patient was an assist-control at the rate of 20 with a tidal volume of 600 and FiO2 of 40% and PEEP of 5. Chest x-ray showing the development of a left-sided pleural effusion. ET tube is in a good location. Rest of the lungs are all in good location is. NG tube is also in place. The blood gases from this morning showed a pH of 7.42 with a pCO2 of 26 and pO2 of 100. No significant orotracheal secretions. Hemodynamically, the patient was aggressively resuscitated IV fluids. She is in a positive fluid balance in order of 6 L at least and the patient was taken off pressors and she's been off the norepinephrine infusion for now. She is producing adequate amount of urine output. She does have a component of non-anion gap metabolic acidosis with a bicarb level of 16. Renal function stable with a creatinine of 0.9. Rest of the electrolytes are all within normal limits. Her white cell count peaked at 27.5 and currently is down to 25. She remains on a broad-spectrum antibiotics including IV Merrem and Ecaris. The cardiac rhythm remains sinus. CVP is somewhat between 10 and 13. Urine output is order of 30-40 mL an hour. Angiopathy was noted. There is also minimal amount of liquidy material within the ileostomy back. Surgical wound site is open and a superior and inferior portion and the wound VAC will be applied to that area. There is no active drainage at this point in time. Based on all this, I give the patient is sedation holiday. She woke up very nicely and she was able to follow commands and answers questions appropriately. Weaning parameters were checked and the patient had a tidal volume of 510 with a vital capacity of 780 within this of 27 and the rapid shallow breathing index of 34. She was given a CPAP trial and following that the patient was extubated to a nasal cannula pH is tolerated extubation without any major difficulties. At this point in time, the patient is extubated, she is following commands and answering questions appropriately. Family is at the bedside. On 12/23/2017, the patient remains extubated. She is postop day #3 following a right colectomy, transverse colectomy and ileostomy and she is postop day #12 following her coronary artery bypass surgery. I was able to wean the patient off the mechanical ventilator and she extubated very nicely without having any major difficulties and currently is on 2 L of oxygen by nasal cannula. Her chest x-ray continues to show a large left-sided pleural effusion. Earlier this morning he was given 40 mg of IV Lasix which improved her urine function and output and the patient is producing more than 50 mL of urine output on hourly basis. She is nothing by mouth. NG tube is in place. Her CVP remains somewhere between 11 and 18. She is producing up to 50 mL of urine output on hourly basis. Rule out able to apply wound VAC to her abdominal wall wound and the open incisions are well covered and she is producing approximately 600 mL of material from the wound VAC system was inserted yesterday. Sternum is stable clean and intact. She is weak and a bit lethargic, slightly worse compared to yesterday and this is probably attributed to her inability to fall asleep throughout the night. No active pain. She is weak. She denies having any specific complaints for now. TPN was started as the patient's pre-albumin and albumin and total protein is extremely low. Serum bicarb is gradually improving is up to 19. Objective - Vital Signs Vital signs: Vital Signs Temp 99.3 F 12/23/17 08:00 Pulse 91 12/23/17 12:00 Resp 19 12/23/17 12:00 BP 178/111 12/23/17 12:00 Pulse Ox 96 12/23/17 12:00 Intake & Output 12/22/17 12/23/17 12/23/17 18:59 06:59 18:59 Intake Total 9404.187 4039.5 512 Output Total 1155 1635 1750 Balance 437.056 57.5 -1238 Weight 100.2 kg 103.5 kg Intake: IV 778 1115 412 ACETAMINOPHEN IV (For NPO 100 ) 1,000 mg In Empty Bag 1 bag @ 400 mls/hr IVPB Q6HR [facility] Rx#:[id number] Amino Acid 4.25%-D10w+ 732 260 Lytes*E* 1,000 ml @ 65 mls/hr IV .BY DURATION [facility] Rx#:[id number] Meropenem 2 gm In Sodium 100 100 Chloride 0.9% 100 ml @ 200 mls/hr IVPB Q12HR [facility] Rx#:[id number] Potassium Chloride 10 meq 100 In Water For Injection 1 100ml.bag @ 100 mls/hr IVPB Q1H [facility] Rx#: [id number] Pressure Bags 78 63 12 Sodium Chloride 0.9% 1, 500 220 40 000 ml @ 125 mls/hr IV . Q8H [facility] Rx#:[id number] Intake, IV Titration 814.056 577.5 100 Amount ACETAMINOPHEN IV (For NPO 100 ) 1,000 mg In Empty Bag 1 bag @ 400 mls/hr IVPB Q6HR [facility] Rx#:[id number] Anidulafungin 100 mg In 100 Sodium Chloride 0.9% 100 ml @ 84 mls/hr IVPB DAILY [facility] Rx#:[id number] Meropenem 2 gm In Sodium 100 Chloride 0.9% 100 ml @ 200 mls/hr IVPB Q12HR [facility] Rx#:[id number] Mvi, Adult No.4 with Vit 350 577.5 K 10 ml Trace (Conc-1Ml/ Dose) 1 ml In Amino Acid 4.25%-D10w+Lytes*E* 1,000 ml @ 50 mls/hr IV . [id number] [facility] Rx#:[id number] Propofol 1,000 mg In 104.056 Empty Bag 1 bag @ Titrate IV .Q0M [facility] Rx#: [id number] Sodium Chloride 0.9% 1, 160 000 ml @ 20 mls/hr IV . Q24H [facility] Rx#:[id number] Output: Gastric Drainage 250 600 Drainage 500 Medial Abdomen 500 Urine 613 402 5889 Stool 270 Other: Voiding Method Indwelling Catheter Indwelling Catheter ABP, PAP, CO, CI - Last Documented Arterial Blood Pressure 159/93 Pulmonary Artery Pressure 4/4 Cardiac Output 4.5 Cardiac Index 2.5 - Exam - Constitutional General appearance: Present: no acute distress, obese, the patient is currently on 2 L of oxygen by nasal cannula - Respiratory Details: Lungs sounds clear bilaterally but diminished on the left side. Patient is extubated to 4 L about by nasal cannula, the patient had diminished breath on the left lung base along with dullness to percussion related to her large pleural effusion. Sternum stable clean and intact. - Cardiovascular Details: S1, S2 present. Regular rate and rhythm, sinus rhythm on telemetry. Sternum stable. Palpable peripheral pulses bilaterally. Generalized nonpitting edema present. Right internal jugular Cordis, left radial arterial line present. Current CVP 10-13. Antiembolism stockings, SCDs present. - Gastrointestinal Gastrointestinal Comment(s): Abdomen soft, nondistended. Hypoactive bowel sounds present. Right lower quadrant ileostomy present with green bile drainage. NG tube is in place. Wound VAC is also applied to the open incision on the mid anterior abdominal wound. No direct tenderness. No bowel sounds at this point in time. - Genitourinary Genitourinary Comment(s): [place] present draining clear, yellow urine. Output is 50 mL an hour as the patient was diuresed and the patient is producing good urine output for now. - Integumentary Integumentary Comment(s): Skin is warm and dry. Anterior chest incision well approximated with dry intact dressing present. Left lower semi-EVH site well approximated. Midline abdominal incision clean, and wound VAC was applied. - Neurologic Neurologic Comment(s): Awake and alert and following commands and answering questions appropriately. - Musculoskeletal Musculoskeletal: Present: generalized weakness - Labs CBC & Chem 7: 12/23/17 04:32 12/23/17 04:32 Labs: Abnormal Lab Results - Last 24 Hours (Table) 12/22/17 12/22/17 12/22/17 Range/Units 04:23 18:49 23:51 WBC (3.8-10.6) k/uL RBC (3.80-5.40) m/uL Hgb (11.4-16.0) gm/dL Hct (34.0-46.0) % MCHC (31.0-37.0) g/dL RDW (11.5-15.5) % Neutrophils # (1.3-7.7) k/uL Lymphocytes # (1.0-4.8) k/uL Chloride (98-107) mmol/L Carbon Dioxide (22-30) mmol/L Glucose (74-99) mg/dL POC Glucose (mg/dL) 146 H 135 H (75-99) mg/dL Calcium (8.4-10.2) mg/dL Magnesium (1.6-2.3) mg/dL Alkaline Phosphatase (38-126) U/L Total Protein (6.3-8.2) g/dL Albumin (3.5-5.0) g/dL Prealbumin <5.0 L (18.0-42.0) mg/dL 12/23/17 12/23/17 Range/Units 04:32 04:32 WBC 29.4 H* (3.8-10.6) k/uL RBC 3.23 L (3.80-5.40) m/uL Hgb 8.7 L (11.4-16.0) gm/dL Hct 28.7 L (34.0-46.0) % MCHC 30.4 L (31.0-37.0) g/dL RDW 16.5 H (11.5-15.5) % Neutrophils # 27.6 H (1.3-7.7) k/uL Lymphocytes # 0.6 L (1.0-4.8) k/uL Chloride 113 H (98-107) mmol/L Carbon Dioxide 19 L (22-30) mmol/L Glucose 134 H (74-99) mg/dL POC Glucose (mg/dL) (75-99) mg/dL Calcium 7.8 L (8.4-10.2) mg/dL Magnesium 2.5 H (1.6-2.3) mg/dL Alkaline Phosphatase 142 H (38-126) U/L Total Protein 4.3 L (6.3-8.2) g/dL Albumin 2.0 L (3.5-5.0) g/dL Prealbumin (18.0-42.0) mg/dL Assessment and Plan Plan: #1. Multivessel coronary artery disease, involving left main coronary artery. And is awaiting coronary artery bypass grafting and surgery was done 12/11/2017 18 and the patient is postop day #12 #2. Acute perforated viscus with necrosis of the transverse and right colon and the patient is status post right colectomy, transverse colectomy and takedown of splenic flexure with diabetic ileostomy. Estimated blood loss was 100 mL and the patient is postop day #3. #3. Acute hypoxic respiratory failure secondary to above. Extubated to a 2 L of oxygen by nasal cannula and the patient has a moderate-sized left-sided pleural effusion #4. Acute hypotension, likely secondary to intra-abdominal source of sepsis as the patient bowel perforation/necrosis. Currently off pressors and the patient has been was resuscitated with IV fluids #5. Atrial fibrillation, and expected outcome of surgery , back to sinus #6. Peripheral vascular disease #7. 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 Hypothyroidism #9. Diabetes mellitus type 2 #10. Chronic low back pain #11. Depression #12 obesity with a BMI of 34.3 #13 leukocytosis #14 anemia and expected outcome of surgery, #15 hyperlipidemia #16 leukocytosis, white cell count is 29.4 #17 non-anion gap metabolic acidosis #18 left-sided pleural effusion as evident on today's chest x-ray #19 severe hypoproteinemia and hyperlipidemia and the patient will be started on TPN today. Plan Monitor the patient's progress in the intensive care unit. Lasix was given. She is producing good amount of urine output. Continue TPN for nutritional support. IV Maintenance. Continue Same Antibiotic Coverage. Monitor the White Count. Cultures of Been All Negative. We Are Considering to Undergo a Thoracentesis of the Left Lung at a Later Stage Was the Patient Get Stronger and She Is Able to Sit up on a Chair. Continue TPN. Continue Wound VAC to Her Abdominal Wounds. Keep NG Tube in Place. Monitor Output from the Ileostomy. Vasotec Was Added for Blood Pressure Control. We Will Continue to Follow.. The Intensive Care Unit. Condition Remains Critical. Evaluation was done and more than 30 minutes. Time with Patient: Greater than 30
[2017-12-23] MEDS ORDERED: cloNIDine 0.2 MG/24HR PATCH TRANSDERM SCH (12:45)
[2017-12-23] MEDS: SODIUM CHLORIDE 0.9% 1,000 ML IV SCH (13:03)
[2017-12-23 13:19] LABS: Glucose,Whole Blood 159 mg/dL (75-99)
--- NOTE | 2017-12-23 14:27 | P.PN ---
Subjective Progress Note Date: 12/23/17 The patient is a 72-year-old female status post exploratory laparotomy including colectomy with ostomy creation. She is awake. She is extubated. Minimal output through her ostomy noted. She had intolerance to IV narcotics. Her cardiac surgeon is at bedside. Objective - Vital Signs Vital signs: Vital Signs Temp 99.3 F 12/23/17 08:00 Pulse 82 12/23/17 14:00 Resp 17 12/23/17 14:00 BP 171/73 12/23/17 14:00 Pulse Ox 97 12/23/17 14:00 Intake & Output 12/22/17 12/23/17 12/23/17 18:59 06:59 18:59 Intake Total 6556.346 9377.5 716 Output Total 1155 1635 1975 Balance 437.056 57.5 -1259 Weight 100.2 kg 103.5 kg 103.5 kg Intake: IV 778 1115 616 ACETAMINOPHEN IV (For NPO 100 ) 1,000 mg In Empty Bag 1 bag @ 400 mls/hr IVPB Q6HR [facility] Rx#:[id number] Amino Acid 4.25%-D10w+ 732 455 Lytes*E* 1,000 ml @ 65 mls/hr IV .BY DURATION [facility] Rx#:[id number] Meropenem 2 gm In Sodium 100 100 Chloride 0.9% 100 ml @ 200 mls/hr IVPB Q12HR [facility] Rx#:[id number] Potassium Chloride 10 meq 100 In Water For Injection 1 100ml.bag @ 100 mls/hr IVPB Q1H [facility] Rx#: [id number] Pressure Bags 78 63 21 Sodium Chloride 0.9% 1, 500 220 40 000 ml @ 125 mls/hr IV . Q8H [facility] Rx#:[id number] Intake, IV Titration 814.056 577.5 100 Amount ACETAMINOPHEN IV (For NPO 100 ) 1,000 mg In Empty Bag 1 bag @ 400 mls/hr IVPB Q6HR [facility] Rx#:[id number] Anidulafungin 100 mg In 100 Sodium Chloride 0.9% 100 ml @ 84 mls/hr IVPB DAILY [facility] Rx#:[id number] Meropenem 2 gm In Sodium 100 Chloride 0.9% 100 ml @ 200 mls/hr IVPB Q12HR [facility] Rx#:[id number] Mvi, Adult No.4 with Vit 350 577.5 K 10 ml Trace (Conc-1Ml/ Dose) 1 ml In Amino Acid 4.25%-D10w+Lytes*E* 1,000 ml @ 50 mls/hr IV . [id number] [facility] Rx#:[id number] Propofol 1,000 mg In 104.056 Empty Bag 1 bag @ Titrate IV .Q0M [facility] Rx#: [id number] Sodium Chloride 0.9% 1, 160 000 ml @ 20 mls/hr IV . Q24H [facility] Rx#:[id number] Output: Gastric Drainage 250 600 Drainage 500 Medial Abdomen 500 Urine 383 313 4894 Stool 270 Other: Voiding Method Indwelling Catheter Indwelling Catheter ABP, PAP, CO, CI - Last Documented Arterial Blood Pressure 159/93 Pulmonary Artery Pressure 4/4 Cardiac Output 4.5 Cardiac Index 2.5 - Exam GENERAL: Well developed and in no acute distress. HEENT: No sclera icterus. Extraocular movements grossly intact. Moist buccal mucosa. Head is atraumatic, normocephalic. Hears conversational speech. No nasal drainage. NECK: Supple without lymphadenopathy. CHEST: Non-labored respirations and equal bilateral excursions. CARDIOVASCULAR: Palpable 2+ radial pulses. Cardiac brace present. ABDOMEN: Soft, nontender. Nondistended. MUSCULOSKELETAL: Diffuse edema. NEUROLOGIC: No focal or lateralizing signs. PSYCH: Appropriate affect. Alert and oriented to person, place and time. SKIN: Good skin turgor. Well perfused. - Labs CBC & Chem 7: 12/23/17 04:32 12/23/17 13:55 Labs: Abnormal Lab Results - Last 24 Hours (Table) 12/22/17 12/22/17 12/22/17 Range/Units 04:23 18:49 23:51 WBC (3.8-10.6) k/uL RBC (3.80-5.40) m/uL Hgb (11.4-16.0) gm/dL Hct (34.0-46.0) % MCHC (31.0-37.0) g/dL RDW (11.5-15.5) % Neutrophils # (1.3-7.7) k/uL Lymphocytes # (1.0-4.8) k/uL Chloride (98-107) mmol/L Carbon Dioxide (22-30) mmol/L Glucose (74-99) mg/dL POC Glucose (mg/dL) 146 H 135 H (75-99) mg/dL Calcium (8.4-10.2) mg/dL Magnesium (1.6-2.3) mg/dL Alkaline Phosphatase (38-126) U/L Total Protein (6.3-8.2) g/dL Albumin (3.5-5.0) g/dL Prealbumin <5.0 L (18.0-42.0) mg/dL 12/23/17 12/23/17 12/23/17 Range/Units 04:32 04:32 13:17 WBC 29.4 H* (3.8-10.6) k/uL RBC 3.23 L (3.80-5.40) m/uL Hgb 8.7 L (11.4-16.0) gm/dL Hct 28.7 L (34.0-46.0) % MCHC 30.4 L (31.0-37.0) g/dL RDW 16.5 H (11.5-15.5) % Neutrophils # 27.6 H (1.3-7.7) k/uL Lymphocytes # 0.6 L (1.0-4.8) k/uL Chloride 113 H (98-107) mmol/L Carbon Dioxide 19 L (22-30) mmol/L Glucose 134 H (74-99) mg/dL POC Glucose (mg/dL) 159 H (75-99) mg/dL Calcium 7.8 L (8.4-10.2) mg/dL Magnesium 2.5 H (1.6-2.3) mg/dL Alkaline Phosphatase 142 H (38-126) U/L Total Protein 4.3 L (6.3-8.2) g/dL Albumin 2.0 L (3.5-5.0) g/dL Prealbumin (18.0-42.0) mg/dL Assessment and Plan (1) Ileostomy in place Current Visit: Yes Status: Acute Code(s): Z93.2 - ILEOSTOMY STATUS SNOMED Code(s): 355696795 (2) Intestinal necrosis Current Visit: Yes Status: Acute Code(s): K55.069 - ACUTE INFARCTION OF INTESTINE, PART AND EXTENT UNSPECIFIED SNOMED Code(s): 75176866 Plan: 1. Clinically she is awake and alert. 2. Medications per NG tube 3. Continue ICU management 4. Agree with decrease narcotics.
[2017-12-23] MEDS ORDERED: hydrALAZINE HCL 20 MG/ML 1 ML VIAL IVP SCH (14:45)
[2017-12-23] MEDS: ASCORBIC ACID 500 MG TAB PO SCH (15:02)
[2017-12-23] MEDS: FERROUS SULFATE 325 MG TAB PO SCH (15:02)
[2017-12-23] MEDS: CYANOCOBALAMIN 500 MCG TAB PO SCH (15:32)
[2017-12-23] MEDS: FAT EMULSION 20% 250 ML in EMPTY BAG 1 BAG IV SCH (17:19)
[2017-12-23 18:01] LABS: Glucose,Whole Blood 154 mg/dL (75-99)
[2017-12-23] MEDS: hydrALAZINE HCL 20 MG/ML 1 ML VIAL IVP SCH (19:48)
[2017-12-23] MEDS ORDERED: HYDROmorphone 1 MG/ML 1 ML SYRINGE IVP PRN (21:24)
[2017-12-23] MEDS: 1: MVI, ADULT NO.4 WITH VIT K 10 ML, TRACE (CONC-1ML/DOSE) 1 ML in AMINO ACID 5%-D15W+LY IV SCH ×3 (23:46)
--- NOTE | 2017-12-23 23:56 | PN ---
PROGRESS NOTE DATE OF SERVICE: 12/23/2017 PRESENTING COMPLAINT: Status post CAB. INTERVAL HISTORY: This is a patient who is status post coronary bypass followed by ischemic bowel, now has a resultant ostomy and a wound VAC in place. NG tube remains in place. The patient's family is at the bedside. Pain is controlled. No flatus to the bag. Getting IV fluids. Telemetry shows sinus rhythm. REVIEW OF SYSTEMS: Done for constitutional, cardiovascular, GI, pulmonary; relevant findings as above. CURRENT MEDICATIONS: Reviewed that include: 1. DuoNeb. 2. P.o. Cordarone. 3. Anidulafungin. 4. Lipitor. 5. Plavix. 6. Cymbalta. 7. Hydralazine. 8. IV Synthroid. 9. IV meropenem. 10.Lopressor. 11.TPN lipids. EXAMINATION: Temperature 99.3, pulse 82, respirations 18, blood pressure 118/87, pulse ox 94% on 2L. GENERAL APPEARANCE: Sitting up in a chair, tired-appearing. EYES: Pupils equal. Conjunctivae normal. HEENT: External nose and ears normal. Oral cavity dry. NG tube in place. NECK: JVD unable to assess. Mass not palpable. RESPIRATORY: Effort increased. LUNGS: Diminished breath sounds. CARDIOVASCULAR: Heart sounds muffled. Minimal edema. ABDOMEN: Some tenderness present. Ostomy bag in place. Wound VAC in place. Liver, spleen not palpable. PSYCHIATRY: Alert and oriented x3. Mood and affect tired-appearing. INVESTIGATIONS: White count 29.4, hemoglobin 8.7. Potassium 4.3, BUN creatinine are normal. Albumin 2.0. ASSESSMENT: 1. Coronary artery disease, status post bypass on 12/11/2017. 2. Acute ischemic bowel, possibly perforation with right transverse colectomy and takedown of the splenic flexure. 3. Acute hypoxic respiratory failure, status post ventilator support. 4. Hypotensive shock from sepsis and septic shock, now recovered. Remains on IV meropenem and fluids. 5. Paroxysmal atrial fibrillation. Patient currently in sinus rhythm. 6. Peripheral artery disease. 7. Hypothyroidism. 8. Diabetes mellitus type 2. 9. Chronic low back pain from arthritis. 10.Depression, not otherwise specified. 11.Obesity; BMI 34.3. 12.Acute blood-loss anemia as expected from surgery and from hospital-acquired from blood draw. 13.Hyperlipidemia. PLAN: Continue current medication and treatment plan, including supportive care, TPN lipids. NG tube remains in place. Care was discussed with the family at the bedside. Prognosis guarded. GUERLINE / ELIAS: [id number] /
[2017-12-24 00:22] LABS: Glucose,Whole Blood 152 mg/dL (75-99)
[2017-12-24] MEDS: KETOROLAC 30 MG/ML 1 ML VIAL IVP SCH ×5 (00:23→23:08)
[2017-12-24] MEDS: HEPARIN SODIUM,PORCINE 5,000 UNIT/ML 1 ML VIAL SQ SCH ×3 (00:24→15:27)
[2017-12-24] MEDS: METOPROLOL TARTRATE 5 MG/5 ML VIAL IVP SCH ×4 (00:24→18:55)
[2017-12-24] MEDS: INSULIN ASPART 100 UNIT/ML 1 ML 10 ML VIAL SQ SCH ×4 (00:32→19:06)
[2017-12-24] MEDS: ACETAMINOPHEN IV (For NPO) 1,000 MG in EMPTY BAG 1 BAG IVPB SCH ×2 (00:55→06:27)
[2017-12-24] MEDS: hydrALAZINE HCL 20 MG/ML 1 ML VIAL IVP SCH ×4 (03:08→17:23)
[2017-12-24 05:07] LABS: Anisocytosis Slight; Basophils % (A) 0 %; Eosinophils # (A) 0.3 k/uL (0-0.7); Eosinophils % (A) 2 %; HCT 27.1 % (34.0-46.0); HGB 8.2 gm/dL (11.4-16.0); Hypochromasia Moderate; Lymphocytes # (A) 0.6 k/uL (1.0-4.8); Lymphocytes % (A) 3 %; MCH 27.3 pg (25.0-35.0); MCHC 30.3 g/dL (31.0-37.0); MCV 89.9 fL (80.0-100.0); Mean Platelet Volume 6.9; Monocytes # (A) 0.4 k/uL (0-1.0); Monocytes % (A) 2 %; Neutrophils # (A) 17.7 k/uL (1.3-7.7); Neutrophils % (A) 92 %; Platelet Count 389 k/uL (150-450); Poikilocytosis Slight; RBC 3.01 m/uL (3.80-5.40); RDW 16.2 % (11.5-15.5); WBC 19.2 k/uL (3.8-10.6)
[2017-12-24 05:37] LABS: ALT 29 U/L (9-52); AST 22 U/L (14-36); Albumin 1.9 g/dL (3.5-5.0); Alkaline Phosphatase 143 U/L (38-126); Anion Gap 7 mmol/L; Blood Urea Nitrogen 21 mg/dL (7-17); Calcium 7.8 mg/dL (8.4-10.2); Carbon Dioxide 20 mmol/L (22-30); Chloride 110 mmol/L (98-107); Glucose 158 mg/dL (74-99); Magnesium 2.3 mg/dL (1.6-2.3); Phosphorus 2.9 mg/dL (2.5-4.5); Potassium 3.8 mmol/L (3.5-5.1); Sodium 137 mmol/L (137-145); Total Bilirubin 0.4 mg/dL (0.2-1.3); Total Protein 4.1 g/dL (6.3-8.2)
--- NOTE | 2017-12-24 06:42 | XR ---
EXAMINATION TYPE: XR chest 1V portable DATE OF EXAM: 12/24/2017 HISTORY: Tube placement. REFERENCE: Previous study dated 12/23/2017. FINDINGS: There has been midline sternotomy. There is an NG tube in place, unchanged in appearance. There is left basilar airspace disease. There is a small left effusion. The heart is not enlarged. IMPRESSION: NO SIGNIFICANT INTERVAL CHANGE IN THE APPEARANCE OF THE CHEST.
[2017-12-24] MEDS: IPRATROPIUM-ALBUTEROL 3 ML NEB INHALATION SCH ×4 (07:26→19:35)
--- NOTE | 2017-12-24 07:48 | P.PN ---
Subjective Progress Note Date: 12/24/17 Principal diagnosis: Coronary artery disease with critical left main disease. Preserved left ventricular function. Previous medical history of hypertension, hyperlipidemia , diabetes mellitus with preoperative hemoglobin A1c 8.1%, hypothyroid, chest granulomatous disease, peripheral vascular disease status post right fem-pop bypass, previous tobacco dependence with FEV1 109% of predicted in November 2016, recent fall in June 2017 with torn right rotator cuff, questionable DVT with previous Coumadin use greater than 2 years ago, syncopal episodes, paroxysmal atrial fibrillation, chronic low back pain, obesity, and depression. Preoperative E. coli urinary tract infection. POD #13 urgent quadruple coronary artery bypass grafting using the left internal mammary sequentially to the diagonal artery and to the left anterior descending artery, reverse saphenous vein graft from the aorta to the first obtuse marginal, reverse saphenous vein graft from the aorta to the third obtuse marginal artery. Bilateral pulmonary vein isolation using the AtriCure radiofrequency clamp. Exclusion of the left atrial appendage using a 35 mm AtriClip. Intraoperative transesophageal echocardiogram and epi-aortic scanning. Postoperative elevation in transaminases, an unexpected outcome, resolving. Leukocytosis, present preoperatively. Postoperative diarrhea, an unexpected outcome. Postoperative normocytic, normochromic anemia, and expected outcome of surgery secondary to cardiopulmonary bypass and hemodilution. Postoperative urinary retention, an unexpected outcome. Postoperative pneumoperitoneum, an unexpected outcome. Necrosis of the transverse colon, right colon, an unexpected outcome. Sepsis, septic shock, an unexpected outcome. POD #3 right colectomy, transverse colectomy, takedown splenic flexure, ileostomy performed by Dr. Montoya. Postoperative prolonged mechanical ventilation, need to be reintubated for second surgery, an unexpected outcome. Patient's currently lying in bed in the intensive care unit in no acute distress. Patient is much more alert this morning with decrease narcotics. Patient has had high blood pressure requiring addition of IV hydralazine. Otherwise hemodynamically stable. Wound VAC in place. Ostomy with dark brown drainage, no flatus in the bag. No complaints of abdominal pain, just chronic low back pain. Objective - Vital Signs Vital signs: Vital Signs Temp 98 F 12/24/17 04:00 Pulse 83 12/24/17 07:27 Resp 19 12/24/17 07:00 BP 162/76 12/24/17 07:00 Pulse Ox 97 12/24/17 07:00 Intake & Output 12/23/17 12/24/17 12/24/17 18:59 06:59 18:59 Intake Total 1030 827 Output Total 2700 720 Balance -1670 107 Weight 103.5 kg Intake: IV 888 806 Amino Acid 4.25%-D10w+ 715 770 Lytes*E* 1,000 ml @ 65 mls/hr IV .BY DURATION [facility] Rx#:[id number] Meropenem 2 gm In Sodium 100 Chloride 0.9% 100 ml @ 200 mls/hr IVPB Q12HR [facility] Rx#:[id number] Pressure Bags 33 36 Sodium Chloride 0.9% 1, 40 000 ml @ 125 mls/hr IV . Q8H [facility] Rx#:[id number] Intake, IV Titration 142 21 Amount ACETAMINOPHEN IV (For NPO 100 ) 1,000 mg In Empty Bag 1 bag @ 400 mls/hr IVPB Q6HR [facility] Rx#:[id number] Fat Emulsion 20% 250 ml 42 21 In Empty Bag 1 bag @ 21 mls/hr IV DAILY@1600 [facility] Rx#:[id number] Output: Gastric Drainage 50 Drainage 400 200 Medial Abdomen 400 200 Urine 2250 520 Other: Voiding Method Indwelling Catheter Indwelling Catheter ABP, PAP, CO, CI - Last Documented Arterial Blood Pressure 159/93 Pulmonary Artery Pressure 4/4 Cardiac Output 4.5 Cardiac Index 2.5 - Constitutional General appearance: Present: cooperative, no acute distress, obese - Respiratory Details: Lungs sounds diminished bilaterally, left side greater than right. Respirations even, nonlabored. Currently on 2 L nasal cannula with oxygen saturation 97%. Able to achieve 750-1000 mL on her incentive spirometry. Strong cough. - Cardiovascular Details: S1, S2 present. Regular rate and rhythm, sinus rhythm with occasional PVCs on telemetry. Sternum stable. Palpable peripheral pulses bilaterally. Generalized nonpitting edema present. Right internal jugular central line present. CVP 0-2 overnight. Antiembolism stockings, SCDs present. - Gastrointestinal Gastrointestinal Comment(s): Abdomen soft, nondistended. Very hypoactive bowel sounds present. Right lower quadrant ileostomy present with dark brown liquid drainage, no flatus in bag. NG tube present to low intermittent suction with 50 mL green thin drainage in the last 12 hours. - Genitourinary Genitourinary Comment(s): Almaguer present draining clear, yellow urine. Output is 35-50 mL per hour overnight, 1775 mL diuresis in the first 4 hours after IV Lasix given yesterday morning. - Integumentary Integumentary Comment(s): Skin is warm and dry. Anterior chest incision well approximated with dry intact dressing present. Left lower semi-EVH site well approximated. Midline abdominal incision clean, andrei intact, wound VAC applied to proximal and distal open incisions with 200 mL output overnight. - Neurologic Neurologic: Present: CNII-XII intact - Musculoskeletal Musculoskeletal: Present: generalized weakness - Psychiatric Psychiatric: Present: A&O x's 3, appropriate affect, intact judgment & insight - Allied health notes Allied health notes reviewed: nursing - Labs CBC & Chem 7: 12/24/17 04:31 12/24/17 04:31 Labs: Abnormal Lab Results - Last 24 Hours (Table) 12/22/17 12/23/17 12/23/17 Range/Units 04:23 04:32 13:17 WBC (3.8-10.6) k/uL RBC (3.80-5.40) m/uL Hgb (11.4-16.0) gm/dL Hct (34.0-46.0) % MCHC (31.0-37.0) g/dL RDW (11.5-15.5) % Neutrophils # (1.3-7.7) k/uL Lymphocytes # (1.0-4.8) k/uL Chloride (98-107) mmol/L Carbon Dioxide (22-30) mmol/L BUN (7-17) mg/dL Glucose (74-99) mg/dL POC Glucose (mg/dL) 159 H (75-99) mg/dL Calcium (8.4-10.2) mg/dL Alkaline Phosphatase (38-126) U/L Total Protein (6.3-8.2) g/dL Albumin (3.5-5.0) g/dL Prealbumin <5.0 L (18.0-42.0) mg/dL Triglycerides 171 H (<150) mg/dL 12/23/17 12/24/17 12/24/17 Range/Units 17:59 00:20 04:31 WBC (3.8-10.6) k/uL RBC (3.80-5.40) m/uL Hgb (11.4-16.0) gm/dL Hct (34.0-46.0) % MCHC (31.0-37.0) g/dL RDW (11.5-15.5) % Neutrophils # (1.3-7.7) k/uL Lymphocytes # (1.0-4.8) k/uL Chloride 110 H (98-107) mmol/L Carbon Dioxide 20 L (22-30) mmol/L BUN 21 H (7-17) mg/dL Glucose 158 H (74-99) mg/dL POC Glucose (mg/dL) 154 H 152 H (75-99) mg/dL Calcium 7.8 L (8.4-10.2) mg/dL Alkaline Phosphatase 143 H (38-126) U/L Total Protein 4.1 L (6.3-8.2) g/dL Albumin 1.9 L (3.5-5.0) g/dL Prealbumin (18.0-42.0) mg/dL Triglycerides (<150) mg/dL 12/24/17 Range/Units 04:31 WBC 19.2 H (3.8-10.6) k/uL RBC 3.01 L (3.80-5.40) m/uL Hgb 8.2 L (11.4-16.0) gm/dL Hct 27.1 L (34.0-46.0) % MCHC 30.3 L (31.0-37.0) g/dL RDW 16.2 H (11.5-15.5) % Neutrophils # 17.7 H (1.3-7.7) k/uL Lymphocytes # 0.6 L (1.0-4.8) k/uL Chloride (98-107) mmol/L Carbon Dioxide (22-30) mmol/L BUN (7-17) mg/dL Glucose (74-99) mg/dL POC Glucose (mg/dL) (75-99) mg/dL Calcium (8.4-10.2) mg/dL Alkaline Phosphatase (38-126) U/L Total Protein (6.3-8.2) g/dL Albumin (3.5-5.0) g/dL Prealbumin (18.0-42.0) mg/dL Triglycerides (<150) mg/dL - Imaging and Cardiology Chest x-ray: report reviewed, image reviewed Assessment and Plan (1) Coronary artery disease involving left main coronary artery Current Visit: Yes Status: Chronic Code(s): I25.10 - ATHSCL HEART DISEASE OF [place] CORONARY ARTERY W/O ANG PCTRS SNOMED Code(s): 600580894 (2) Hypertension Current Visit: Yes Status: Chronic Code(s): I10 - ESSENTIAL (PRIMARY) HYPERTENSION SNOMED Code(s): 03126203 (3) Hyperlipidemia Current Visit: Yes Status: Chronic Code(s): E78.5 - HYPERLIPIDEMIA, UNSPECIFIED SNOMED Code(s): 27477436 (4) Diabetes Current Visit: Yes Status: Chronic Code(s): E11.9 - TYPE 2 DIABETES MELLITUS WITHOUT COMPLICATIONS SNOMED Code(s): 54730236 (5) Peripheral vascular disease Current Visit: Yes Status: Chronic Code(s): I73.9 - PERIPHERAL VASCULAR DISEASE, UNSPECIFIED SNOMED Code(s): 180198172 (6) Family history of heart disease Current Visit: Yes Status: Chronic Code(s): Z82.49 - FAMILY HX OF ISCHEM HEART DIS AND OTH DIS OF THE CIRC SYS SNOMED Code(s): 781652029 (7) Tobacco dependence in remission Current Visit: No Status: Resolved Code(s): F17.201 - NICOTINE DEPENDENCE, UNSPECIFIED, IN REMISSION SNOMED Code(s): 520046077 (8) Hypothyroid Current Visit: Yes Status: Chronic Code(s): E03.9 - HYPOTHYROIDISM, UNSPECIFIED SNOMED Code(s): 99646355 (9) Syncopal episodes Current Visit: No Status: Chronic Code(s): R55 - SYNCOPE AND COLLAPSE SNOMED Code(s): 787470866 (10) History of DVT (deep vein thrombosis) Current Visit: No Status: Resolved Code(s): Z86.718 - PERSONAL HISTORY OF OTHER VENOUS THROMBOSIS AND EMBOLISM SNOMED Code(s): 573435273 (11) History of atrial fibrillation Current Visit: No Status: Resolved Code(s): Z86.79 - PERSONAL HISTORY OF OTHER DISEASES OF THE CIRCULATORY SYSTEM SNOMED Code(s): 656705003 (12) Chronic low back pain Current Visit: Yes Status: Chronic Code(s): M54.5 - LOW BACK PAIN; G89.29 - OTHER CHRONIC PAIN SNOMED Code(s): 358272706 (13) Depression Current Visit: Yes Status: Chronic Code(s): F32.9 - MAJOR DEPRESSIVE DISORDER, SINGLE EPISODE, UNSPECIFIED SNOMED Code(s): 41499606 Plan: 1. Continue aspirin, statin, Plavix, subcu heparin, beta sheree. Will increase beta sheree therapy as tolerated. IV hydralazine added. 2. Bronchodilators per pulmonology. 3. Continue amiodarone for A. fib prophylaxis. Will need anticoagulation once patient is more stable and all lines and tubes have been discontinued. 4. Continue meropenem, Eraxis per Dr. Mccartney. 5. Continue NG tube to low intermittent suction. Monitor output from NG tube and ileostomy. 6. Continue PPN for nutrition per Dr. Salas. Dietary consult in place. Pre -albumin less than 5. 7. Keep Almaguer for strict accurate I and O's, urinary retention. 8. Left pleural effusion present. May need to be drained. 9. Monitor daily labs, chest x-rays. 10. GI/DVT prophylaxis. 11. Pain control with current medication regimen. Limit narcotics. IV Toradol and oral Tylenol for pain control. 12. Insulin/diabetic management per Dr. Yousif. 13. Wound VAC per general surgery to abdominal incisions. Will change Monday, Monday, Monday. 14. More recommendations to follow based on patient's clinical course. Time with Patient: Greater than 30
[2017-12-24] MEDS: AMIODARONE 200 MG TAB PO SCH ×2 (08:12→20:58)
[2017-12-24] MEDS: CLOPIDOGREL 75 MG TAB PO SCH (08:12)
[2017-12-24] MEDS: ASPIRIN 81 MG PO SCH (08:12)
[2017-12-24] MEDS: ATORVASTATIN 40 MG TAB PO SCH (08:12)
[2017-12-24] MEDS: POTASSIUM CHLORIDE 10 MEQ in WATER FOR INJECTION 1 100ML.BAG IVPB SCH ×2 (08:13→09:30)
[2017-12-24] MEDS: DULoxetine HCL 60 MG CAPSULE.DR PO SCH (08:13)
[2017-12-24] MEDS: PANTOPRAZOLE 40 MG/10 ML VIAL IVP SCH (08:13)
[2017-12-24] MEDS ORDERED: FUROSEMIDE 10 MG/ML 2 ML VIAL IV ONE (08:33)
[2017-12-24] MEDS: HYDROmorphone 1 MG/ML 1 ML SYRINGE IVP PRN ×3 (08:46→19:06)
[2017-12-24] MEDS: ANIDULAFUNGIN 100 MG in SODIUM CHLORIDE 0.9% 100 ML IVPB SCH (09:16)
[2017-12-24] MEDS: LEVOTHYROXINE IVP 100 MCG/5 ML VIAL IV SCH (09:34)
[2017-12-24] MEDS: MEROPENEM 2 GM in SODIUM CHLORIDE 0.9% 100 ML IVPB SCH ×2 (09:35→20:59)
--- NOTE | 2017-12-24 09:44 | P.PN ---
Subjective This is a pleasant 72-year-old female status post coronary artery bypass grafting postoperative day #13 as well as postoperative day #3 right colectomy, transverse colectomy, takedown of splenic flexure an ileostomy per Dr. Still. She is seen and examined resting comfortably in bed laying flat in no acute distress. She continues to complain of significant abdominal pain. Continues with NG tube in place and NPO. She denies symptoms of chest discomfort, shortness of breath, palpitations or dizziness. Blood pressures have been somewhat uncontrolled secondary to no intake of oral medications. A Catapres patch was added yesterday and has since been discontinued. Currently maintained on amiodarone, aspirin, atorvastatin, Plavix, IV Lopressor and IV hydralazine. Blood pressure this morning 124/64, 139/67 heart rate 80s. Maintaining sinus mechanism on telemetry. Chest x-ray this morning reveals small left pleural effusion with no significant change from previous study. Objective - Vital Signs Vital signs: Vital Signs Temp 97.9 F 12/24/17 08:00 Pulse 86 12/24/17 09:00 Resp 18 12/24/17 09:00 BP 139/67 12/24/17 09:00 Pulse Ox 97 12/24/17 09:00 Intake & Output 12/23/17 12/24/17 12/24/17 18:59 06:59 18:59 Intake Total 1030 827 289 Output Total 2500 720 370 Balance -1470 107 -81 Weight 103.5 kg 104 kg Intake: IV 888 806 189 Amino Acid 4.25%-D10w+ 715 770 180 Lytes*E* 1,000 ml @ 65 mls/hr IV .BY DURATION [facility] Rx#:[id number] Meropenem 2 gm In Sodium 100 Chloride 0.9% 100 ml @ 200 mls/hr IVPB Q12HR [facility] Rx#:[id number] Pressure Bags 33 36 9 Sodium Chloride 0.9% 1, 40 000 ml @ 125 mls/hr IV . Q8H [facility] Rx#:[id number] Intake, IV Titration 142 21 100 Amount ACETAMINOPHEN IV (For NPO 100 ) 1,000 mg In Empty Bag 1 bag @ 400 mls/hr IVPB Q6HR [facility] Rx#:[id number] Fat Emulsion 20% 250 ml 42 21 In Empty Bag 1 bag @ 21 mls/hr IV DAILY@1600 [facility] Rx#:[id number] Potassium Chloride 10 meq 100 In Water For Injection 1 100ml.bag @ 100 mls/hr IVPB Q1H [facility] Rx#: [id number] Output: Gastric Drainage 50 50 Drainage 200 200 Medial Abdomen 200 200 Urine 2250 520 200 Stool 120 Other: Voiding Method Indwelling Catheter Indwelling Catheter ABP, PAP, CO, CI - Last Documented Arterial Blood Pressure 159/93 Pulmonary Artery Pressure 4/4 Cardiac Output 4.5 Cardiac Index 2.5 - Exam GENERAL: Well-appearing, well-nourished and in no acute distress. NECK: Supple without JVD or thyromegaly. LUNGS: Breath sounds clear to auscultation bilaterally. Respiration equal and unlabored. No wheezes, rales or rhonchi. Diminished bilaterally. HEART: Regular rate and rhythm without murmurs, rubs or gallops. S1 and S2 heard. EXTREMITIES: Normal range of motion, trace bilateral lower extremity nonpitting edema. No clubbing or cyanosis. Peripheral pulses intact. - Labs CBC & Chem 7: 12/24/17 04:31 12/24/17 04:31 Labs: Abnormal Lab Results - Last 24 Hours (Table) 12/23/17 12/23/17 12/23/17 Range/Units 04:32 13:17 17:59 WBC (3.8-10.6) k/uL RBC (3.80-5.40) m/uL Hgb (11.4-16.0) gm/dL Hct (34.0-46.0) % MCHC (31.0-37.0) g/dL RDW (11.5-15.5) % Neutrophils # (1.3-7.7) k/uL Lymphocytes # (1.0-4.8) k/uL Chloride (98-107) mmol/L Carbon Dioxide (22-30) mmol/L BUN (7-17) mg/dL Glucose (74-99) mg/dL POC Glucose (mg/dL) 159 H 154 H (75-99) mg/dL Calcium (8.4-10.2) mg/dL Alkaline Phosphatase (38-126) U/L Total Protein (6.3-8.2) g/dL Albumin (3.5-5.0) g/dL Triglycerides 171 H (<150) mg/dL 08/26/18 08/26/18 08/26/18 Range/Units 00:20 04:31 04:31 WBC 19.2 H (3.8-10.6) k/uL RBC 3.01 L (3.80-5.40) m/uL Hgb 8.2 L (11.4-16.0) gm/dL Hct 27.1 L (34.0-46.0) % MCHC 30.3 L (31.0-37.0) g/dL RDW 16.2 H (11.5-15.5) % Neutrophils # 17.7 H (1.3-7.7) k/uL Lymphocytes # 0.6 L (1.0-4.8) k/uL Chloride 110 H (98-107) mmol/L Carbon Dioxide 20 L (22-30) mmol/L BUN 21 H (7-17) mg/dL Glucose 158 H (74-99) mg/dL POC Glucose (mg/dL) 152 H (75-99) mg/dL Calcium 7.8 L (8.4-10.2) mg/dL Alkaline Phosphatase 143 H (38-126) U/L Total Protein 4.1 L (6.3-8.2) g/dL Albumin 1.9 L (3.5-5.0) g/dL Triglycerides (<150) mg/dL Assessment and Plan Assessment: ASSESSMENT Status post coronary artery bypass graft 4 Status post colectomy and colostomy status post perforated diverticula Paroxysmal atrial fibrillation, currently maintaining sinus mechanism Diabetes mellitus Hypertension Dyslipidemia PLAN Continue current cardiac medications. Blood pressure seems under control on IV hydralazine and Lopressor. Continue to monitor the patient closely and further recommendations will be made based upon clinical course. Nurse Practitioner note has been reviewed, I agree with a documented findings and plan of care. Patient was seen and examined.
--- NOTE | 2017-12-24 11:49 | P.PN ---
Subjective Progress Note Date: 12/24/17 On today's evaluation of a 12/18/2017 Carolyn is back to the intensive care unit. She is postop day #7 following her coronary artery bypass surgery. She got transferred because of an extensive liquidy/watery diarrhea which left her into a dehydrated state and causes some non-anion gap metabolic acidosis. Her bicarb level is down to 14. She had 3 additional liquidy bowel movements this morning. The patient was seen by general surgery. CAT scan of the abdomen was done raising the possibility of an underlying ischemic colitis. She was placed on accommodation Zosyn and vancomycin. No fever or chills. She also had gone into atrial fibrillation. The rate is controlled right now with metoprolol and amiodarone and the patient is also on IV heparin. She is complaining of pain throughout her chest and body mainly in the joints and she has been taken hydrocodone outpatient basis. I restarted her on [place] 5 every 6 hours for pain control pH is using incentive spirometer. She is on IV fluids and she'll be started on a bicarb drip. The patient's chest x-ray from today showed small bilateral pleural effusion and basilar atelectasis and left lung base. There is also artifact from external objects on the chest x-ray. The postoperative echocardiogram showed a preserved LV function with an ejection fraction of 50-55 %. No valvular abnormalities noted. On today's evaluation of 12/19/2017, the patient is awake and alert and sitting up on a chair. The diarrhea has subsided significantly. She only had liquidy loose bowel movement there was small amount this morning. Otherwise, the patient is was resuscitated IV fluids. The patient received a bicarb infusion yesterday and her serum bicarb normalizes and earlier this morning associated to a normal saline infusion at the rate of 75 mL an hour. Her urine output is around 20-25 mL an hour. The patient's creatinine is normal. BUN is down to 7. Vascular electrodes are all within normal limits and her bicarb level is normalized. No nausea. No vomiting. No abdominal pain. She is taking clear liquid diet. No chest pain. Chest x-ray shows some mild pulmonary vascular congestion and atelectatic changes in lung bases bilaterally. She is on room air oxygen. Sternum stable clean and intact. She has E. coli in the urine and she is on IV Zosyn. Vancomycin was discontinued. IV heparin was discontinued. Her current rhythm is sinus. On 12/20/2017 the patient developed some vague abdominal pain. This pain started approximately 4 AM in the morning. As mentioned earlier the patient is postop from coronary artery bypass surgery and she is postop day #8. The patient is currently in the intensive care unit. X-ray of the chest was done this morning and it showed free air under the diaphragm. This is consistent with pneumoperitoneum and the patient will need further investigation. Immediately the general surgeon was contacted and the patient had a CAT scan of the abdomen and it showed moderate pneumoperitoneum with site of the perforation i not identified although there was suspicion that maybe the distal stomach/duodenal area. The patient currently on IV Zosyn. No cervical leukocytosis. Urine output is dropped down to 20 mL an hour. Her white count from this morning's at 14.3. Patient be taken to the operating room for an expected laparotomy. No altered mentation. No cough or sputum production. No other complaints otherwise for now. On 12/21/2017 I'm seeing this patient for a follow-up. She is a critically ill female patient was taken to the operating room yesterday for an acute bowel perforation. The patient was found to have pneumoperitoneum and the patient was taken to the operating room and the patient underwent expiratory laparotomy and right colectomy and transverse colectomy and takedown of splenic flexure and diverticular colostomy. The patient intraoperatively was found to have necrosis of the transverse colon and the right colon. Postop, the patient was kept intubated and the patient was moved to the intensive care unit for further evaluation and management. Overnight the patient was given fluid aggressively. She was given IV albumin. She was given lactated Ringer solution and normal saline solution. She did drop her pressure and she had also to placed on pressors and she is currently on 3-4 mics of norepinephrine infusion to maintain a mean artery pressure above 65. This morning I give her another liter of lactated Ringer and nontender albumin 5% to bring her CVP above 12. Hemoglobin dropped down to 6.7. Her white count came up to 31.4 and subsequently dropped down to 23. This is expected as the patient had a bowel necrosis and intra-abdominal sepsis. Antibiotic dressings were done and the patient was placed on Merrem and Eraxis. Earlier this morning the patient was on assist-control mode of ventilation and was obvious that the patient was asynchronous and double stacking on a mechanical ventilator. This was occurring even while on 40 mics of Diprivan infusion. Based on this, necessary vent changes were done. The patient was air hungry and she was taken significantly high tidal volumes. I was able to bring the tidal volume of 600 and the rate of 18 with a FiO2 of 40% and a PEEP of 5. Chest x-ray from today showed that the patient had adequate expansion of both lungs. There is a left- sided pleural effusion and ET tube is around 3-4 cm above the al. The net fluid balance over the past 24 hours is +6 L in the urine output is adequate for now. The patient is afebrile. On 12/22/2017 I'm seeing this patient for a follow-up. Note that the patient is postop day #2 following chest was colectomy, right colectomy and ileostomy and the patient is postop day #11 following her coronary artery bypass surgery. This morning the patient was sedated with Diprivan and she was calm and comfortable. Despite being on Diprivan, the patient was easily arousable. She was maintained on assist control mode of ventilation. Throughout the night the patient was an assist-control at the rate of 20 with a tidal volume of 600 and FiO2 of 40% and PEEP of 5. Chest x-ray showing the development of a left-sided pleural effusion. ET tube is in a good location. Rest of the lungs are all in good location is. NG tube is also in place. The blood gases from this morning showed a pH of 7.42 with a pCO2 of 26 and pO2 of 100. No significant orotracheal secretions. Hemodynamically, the patient was aggressively resuscitated IV fluids. She is in a positive fluid balance in order of 6 L at least and the patient was taken off pressors and she's been off the norepinephrine infusion for now. She is producing adequate amount of urine output. She does have a component of non-anion gap metabolic acidosis with a bicarb level of 16. Renal function stable with a creatinine of 0.9. Rest of the electrolytes are all within normal limits. Her white cell count peaked at 27.5 and currently is down to 25. She remains on a broad-spectrum antibiotics including IV Merrem and Ecaris. The cardiac rhythm remains sinus. CVP is somewhat between 10 and 13. Urine output is order of 30-40 mL an hour. Angiopathy was noted. There is also minimal amount of liquidy material within the ileostomy back. Surgical wound site is open and a superior and inferior portion and the wound VAC will be applied to that area. There is no active drainage at this point in time. Based on all this, I give the patient is sedation holiday. She woke up very nicely and she was able to follow commands and answers questions appropriately. Weaning parameters were checked and the patient had a tidal volume of 510 with a vital capacity of 780 within this of 27 and the rapid shallow breathing index of 34. She was given a CPAP trial and following that the patient was extubated to a nasal cannula pH is tolerated extubation without any major difficulties. At this point in time, the patient is extubated, she is following commands and answering questions appropriately. Family is at the bedside. On 12/23/2017, the patient remains extubated. She is postop day #3 following a right colectomy, transverse colectomy and ileostomy and she is postop day #12 following her coronary artery bypass surgery. I was able to wean the patient off the mechanical ventilator and she extubated very nicely without having any major difficulties and currently is on 2 L of oxygen by nasal cannula. Her chest x-ray continues to show a large left-sided pleural effusion. Earlier this morning he was given 40 mg of IV Lasix which improved her urine function and output and the patient is producing more than 50 mL of urine output on hourly basis. She is nothing by mouth. NG tube is in place. Her CVP remains somewhere between 11 and 18. She is producing up to 50 mL of urine output on hourly basis. Rule out able to apply wound VAC to her abdominal wall wound and the open incisions are well covered and she is producing approximately 600 mL of material from the wound VAC system was inserted yesterday. Sternum is stable clean and intact. She is weak and a bit lethargic, slightly worse compared to yesterday and this is probably attributed to her inability to fall asleep throughout the night. No active pain. She is weak. She denies having any specific complaints for now. TPN was started as the patient's pre-albumin and albumin and total protein is extremely low. Serum bicarb is gradually improving is up to 19. On 12/24/2017, the patient is awake and alert and she is postop day #4 from her bowel surgery and postop day #13 from her cardiac surgery. She is awake and alert and she is communicating. She is on 2 L about 2 by nasal cannula. No respiratory distress. She is diuresing and the chest x-ray shows improvement in the volume status and the patient was started on IV Lasix today. She was already producing approximately 40-50 mL an hour of urine output. NG tube is in place and output has been 100 mL over the past 24 hours. The patient has approximately 120cc of output and had ileostomy site. The wound VAC is also in place and the output has been not considerably high. She is doing well. Cardiac rhythm remains in normal sinus mechanism. The patient has TPN for nutritional support. Hemodynamically stable. No hypotension. No pressors requirements. No other significant events overnight. No altered mentation. Objective - Vital Signs Vital signs: Vital Signs Temp 97.9 F 12/24/17 08:00 Pulse 86 12/24/17 11:00 Resp 16 12/24/17 11:00 BP 146/70 12/24/17 11:00 Pulse Ox 98 12/24/17 11:00 Intake & Output 12/23/17 12/24/17 12/24/17 18:59 06:59 18:59 Intake Total 1030 827 615 Output Total 2500 720 820 Balance -1470 107 -205 Weight 103.5 kg 104 kg 104 kg Intake: IV 888 806 315 Amino Acid 4.25%-D10w+ 715 770 300 Lytes*E* 1,000 ml @ 65 mls/hr IV .BY DURATION [facility] Rx#:[id number] Meropenem 2 gm In Sodium 100 Chloride 0.9% 100 ml @ 200 mls/hr IVPB Q12HR [facility] Rx#:[id number] Pressure Bags 33 36 15 Sodium Chloride 0.9% 1, 40 000 ml @ 125 mls/hr IV . Q8H [facility] Rx#:[id number] Intake, IV Titration 142 21 300 Amount ACETAMINOPHEN IV (For NPO 100 ) 1,000 mg In Empty Bag 1 bag @ 400 mls/hr IVPB Q6HR [facility] Rx#:[id number] Fat Emulsion 20% 250 ml 42 21 In Empty Bag 1 bag @ 21 mls/hr IV DAILY@1600 [facility] Rx#:[id number] Meropenem 2 gm In Sodium 100 Chloride 0.9% 100 ml @ 200 mls/hr IVPB Q12HR [facility] Rx#:[id number] Potassium Chloride 10 meq 200 In Water For Injection 1 100ml.bag @ 100 mls/hr IVPB Q1H [facility] Rx#: [id number] Output: Gastric Drainage 50 50 Drainage 200 200 Medial Abdomen 200 200 Urine 2250 520 650 Stool 120 Other: Voiding Method Indwelling Catheter Indwelling Catheter Indwelling Catheter ABP, PAP, CO, CI - Last Documented Arterial Blood Pressure 159/93 Pulmonary Artery Pressure 4/4 Cardiac Output 4.5 Cardiac Index 2.5 - Exam - Constitutional General appearance: Present: no acute distress, obese, the patient is currently on 2 L of oxygen by nasal cannula - Respiratory Details: Lungs sounds clear bilaterally but diminished on the left side. Patient is extubated to 4 L about by nasal cannula, the patient had diminished breath on the left lung base along with dullness to percussion related to her large pleural effusion. Sternum stable clean and intact. - Cardiovascular Details: S1, S2 present. Regular rate and rhythm, sinus rhythm on telemetry. Sternum stable. Palpable peripheral pulses bilaterally. Generalized nonpitting edema present. . Antiembolism stockings, SCDs present. - Gastrointestinal Gastrointestinal Comment(s): Abdomen soft, nondistended. Hypoactive bowel sounds present. Right lower quadrant ileostomy present with green bile drainage. NG tube is in place. Wound VAC is also applied to the open incision on the mid anterior abdominal wound. No direct tenderness. No bowel sounds at this point in time. The NG tube was placed out around 50 mL -100cc over the past 12 hours - Genitourinary Genitourinary Comment(s): [place] present draining clear, yellow urine. Output is 50 mL an hour as the patient was diuresed and the patient is producing good urine output for now. - Integumentary Integumentary Comment(s): Skin is warm and dry. Anterior chest incision well approximated with dry intact dressing present. Left lower semi-EVH site well approximated. Midline abdominal incision clean, and wound VAC was applied. - Neurologic Neurologic Comment(s): Awake and alert and following commands and answering questions appropriately. - Musculoskeletal Musculoskeletal: Present: generalized weakness - Labs CBC & Chem 7: 12/24/17 04:31 12/24/17 04:31 Labs: Abnormal Lab Results - Last 24 Hours (Table) 12/23/17 12/23/17 12/23/17 Range/Units 04:32 13:17 17:59 WBC (3.8-10.6) k/uL RBC (3.80-5.40) m/uL Hgb (11.4-16.0) gm/dL Hct (34.0-46.0) % MCHC (31.0-37.0) g/dL RDW (11.5-15.5) % Neutrophils # (1.3-7.7) k/uL Lymphocytes # (1.0-4.8) k/uL Chloride (98-107) mmol/L Carbon Dioxide (22-30) mmol/L BUN (7-17) mg/dL Glucose (74-99) mg/dL POC Glucose (mg/dL) 159 H 154 H (75-99) mg/dL Calcium (8.4-10.2) mg/dL Alkaline Phosphatase (38-126) U/L Total Protein (6.3-8.2) g/dL Albumin (3.5-5.0) g/dL Triglycerides 171 H (<150) mg/dL 12/24/17 12/24/17 12/24/17 Range/Units 00:20 04:31 04:31 WBC 19.2 H (3.8-10.6) k/uL RBC 3.01 L (3.80-5.40) m/uL Hgb 8.2 L (11.4-16.0) gm/dL Hct 27.1 L (34.0-46.0) % MCHC 30.3 L (31.0-37.0) g/dL RDW 16.2 H (11.5-15.5) % Neutrophils # 17.7 H (1.3-7.7) k/uL Lymphocytes # 0.6 L (1.0-4.8) k/uL Chloride 110 H (98-107) mmol/L Carbon Dioxide 20 L (22-30) mmol/L BUN 21 H (7-17) mg/dL Glucose 158 H (74-99) mg/dL POC Glucose (mg/dL) 152 H (75-99) mg/dL Calcium 7.8 L (8.4-10.2) mg/dL Alkaline Phosphatase 143 H (38-126) U/L Total Protein 4.1 L (6.3-8.2) g/dL Albumin 1.9 L (3.5-5.0) g/dL Triglycerides (<150) mg/dL Assessment and Plan Plan: #1. Multivessel coronary artery disease, involving left main coronary artery. And is awaiting coronary artery bypass grafting and surgery was done 12/11/2017 18 and the patient is postop day #113 #2. Acute perforated viscus with necrosis of the transverse and right colon and the patient is status post right colectomy, transverse colectomy and takedown of splenic flexure with diabetic ileostomy. Estimated blood loss was 100 mL and the patient is postop day #4 #3. Acute hypoxic respiratory failure secondary to above. Extubated to a 2 L of oxygen by nasal cannula and the patient has a moderate-sized left-sided pleural effusion #4. Acute hypotension, recovered and the patient is currently on no pressors #5. Atrial fibrillation, and expected outcome of surgery , back to sinus #6. Peripheral vascular disease #7. 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 Hypothyroidism #9. Diabetes mellitus type 2 #10. Chronic low back pain #11. Depression #12 obesity with a BMI of 34.3 #13 leukocytosis #14 anemia and expected outcome of surgery, #15 hyperlipidemia #16 leukocytosis, improving and the white cell count is down to 19.2 #17 non-anion gap metabolic acidosis, improving and the patient is receiving acetate through TPN and the bicarb level is up to 20 #18 left-sided pleural effusion as evident on today's chest x-ray #19 severe hypoproteinemia and hyperlipidemia and the patient will be started on TPN today. Plan Continue IV Lasix. Sit up the patient on the chair. Keep the NG tube in place for another 24 hours. It seems that we are seeing some bowel activity and it's likely that the patient's NG tube May, and with the next 24 hours. Continue the wound care through a wound VAC. Sternum stable clean and intact. Hemodynamically stable. Mobilizing her third spacing and the patient is producing adequate amount of urine output. For the most part she is doing well. No signs of any respiratory distress. No plans to drain the left-sided pleural effusion for now and will let the patient to diabetes herself. Monitor the white count which is down to 19.2. No other significant events overnight. Continue Dilaudid for pain control.
[2017-12-24] MEDS: ASCORBIC ACID 500 MG TAB PO SCH (12:16)
[2017-12-24] MEDS: FERROUS SULFATE 325 MG TAB PO SCH (12:16)
[2017-12-24] MEDS: CYANOCOBALAMIN 500 MCG TAB PO SCH (12:16)
[2017-12-24] MEDS: SODIUM CHLORIDE 0.9% 1,000 ML IV SCH (13:05)
[2017-12-24 13:09] LABS: Glucose,Whole Blood 171 mg/dL (75-99)
--- NOTE | 2017-12-24 15:34 | P.PN ---
Subjective Progress Note Date: 12/24/17 The patient is a 72-year-old female status post exploratory laparotomy including colectomy with ostomy creation. She has output from her ileostomy. She is doing remarkably well with moderate decrease of over 50% of her white blood cell count. Objective - Vital Signs Vital signs: Vital Signs Temp 98.1 F 12/24/17 12:00 Pulse 88 12/24/17 15:24 Resp 25 H 12/24/17 15:00 BP 134/73 12/24/17 15:00 Pulse Ox 98 12/24/17 15:00 Intake & Output 12/23/17 12/24/17 12/24/17 18:59 06:59 18:59 Intake Total 1030 827 867 Output Total 2500 720 1325 Balance -1470 107 -458 Weight 103.5 kg 104 kg 104 kg Intake: IV 888 806 567 Amino Acid 4.25%-D10w+ 715 770 540 Lytes*E* 1,000 ml @ 65 mls/hr IV .BY DURATION [facility] Rx#:[id number] Meropenem 2 gm In Sodium 100 Chloride 0.9% 100 ml @ 200 mls/hr IVPB Q12HR [facility] Rx#:[id number] Pressure Bags 33 36 27 Sodium Chloride 0.9% 1, 40 000 ml @ 125 mls/hr IV . Q8H [facility] Rx#:[id number] Intake, IV Titration 142 21 300 Amount ACETAMINOPHEN IV (For NPO 100 ) 1,000 mg In Empty Bag 1 bag @ 400 mls/hr IVPB Q6HR [facility] Rx#:[id number] Fat Emulsion 20% 250 ml 42 21 In Empty Bag 1 bag @ 21 mls/hr IV DAILY@1600 [facility] Rx#:[id number] Meropenem 2 gm In Sodium 100 Chloride 0.9% 100 ml @ 200 mls/hr IVPB Q12HR [facility] Rx#:[id number] Potassium Chloride 10 meq 200 In Water For Injection 1 100ml.bag @ 100 mls/hr IVPB Q1H [facility] Rx#: [id number] Output: Gastric Drainage 50 50 Drainage 200 200 Medial Abdomen 200 200 Urine 2250 520 1155 Stool 120 Other: Voiding Method Indwelling Catheter Indwelling Catheter Indwelling Catheter ABP, PAP, CO, CI - Last Documented Arterial Blood Pressure 159/93 Pulmonary Artery Pressure 4/4 Cardiac Output 4.5 Cardiac Index 2.5 - Exam GENERAL: Well developed and in no acute distress. HEENT: No sclera icterus. Extraocular movements grossly intact. Moist buccal mucosa. Head is atraumatic, normocephalic. Hears conversational speech. No nasal drainage. NECK: Supple without lymphadenopathy. CHEST: Non-labored respirations and equal bilateral excursions. CARDIOVASCULAR: Regular rate. Regular rhythm. Palpable 2+ radial pulses. Cardiac brace present. ABDOMEN: Soft, nontender. Nondistended. Dressing clean dry and intact. Ostomy pink pain and functioning MUSCULOSKELETAL: Decreased diffuse edema. NEUROLOGIC: No focal or lateralizing signs. Cranial nerves II-12 grossly intact PSYCH: Appropriate affect. Alert and oriented to person, place and time. SKIN: Good skin turgor. Well perfused. - Labs CBC & Chem 7: 12/24/17 04:31 12/24/17 04:31 Labs: Abnormal Lab Results - Last 24 Hours (Table) 12/23/17 12/24/17 12/24/17 Range/Units 17:59 00:20 04:31 WBC (3.8-10.6) k/uL RBC (3.80-5.40) m/uL Hgb (11.4-16.0) gm/dL Hct (34.0-46.0) % MCHC (31.0-37.0) g/dL RDW (11.5-15.5) % Neutrophils # (1.3-7.7) k/uL Lymphocytes # (1.0-4.8) k/uL Chloride 110 H (98-107) mmol/L Carbon Dioxide 20 L (22-30) mmol/L BUN 21 H (7-17) mg/dL Glucose 158 H (74-99) mg/dL POC Glucose (mg/dL) 154 H 152 H (75-99) mg/dL Calcium 7.8 L (8.4-10.2) mg/dL Alkaline Phosphatase 143 H (38-126) U/L Total Protein 4.1 L (6.3-8.2) g/dL Albumin 1.9 L (3.5-5.0) g/dL 12/24/17 12/24/17 Range/Units 04:31 13:07 WBC 19.2 H (3.8-10.6) k/uL RBC 3.01 L (3.80-5.40) m/uL Hgb 8.2 L (11.4-16.0) gm/dL Hct 27.1 L (34.0-46.0) % MCHC 30.3 L (31.0-37.0) g/dL RDW 16.2 H (11.5-15.5) % Neutrophils # 17.7 H (1.3-7.7) k/uL Lymphocytes # 0.6 L (1.0-4.8) k/uL Chloride (98-107) mmol/L Carbon Dioxide (22-30) mmol/L BUN (7-17) mg/dL Glucose (74-99) mg/dL POC Glucose (mg/dL) 171 H (75-99) mg/dL Calcium (8.4-10.2) mg/dL Alkaline Phosphatase (38-126) U/L Total Protein (6.3-8.2) g/dL Albumin (3.5-5.0) g/dL Assessment and Plan (1) Ileostomy in place Current Visit: Yes Status: Acute Code(s): Z93.2 - ILEOSTOMY STATUS SNOMED Code(s): 866352914 (2) Intestinal necrosis Current Visit: Yes Status: Acute Code(s): K55.069 - ACUTE INFARCTION OF INTESTINE, PART AND EXTENT UNSPECIFIED SNOMED Code(s): 64057105 Plan: 1. May have ice chips and popsicles. 2. Continue ICU care
--- NOTE | 2017-12-24 16:21 | P.PN ---
Subjective Progress Note Date: 12/24/17 This is a 72-year-old female patient who initially underwent a stress test that was positive followed by a heart catheterization that showed significant disease in the left main, mid LAD and ostial circumflex. She then underwent an urgent CABG 4 vessel on December 11. Patient seems to have been recovering well until yesterday. She was noted to develop a fever of 102.6, lactic acid was 2.3 and also liver enzymes elevated. She had been treated for E. coli urinary tract infection that was present on admission with Rocephin. Her antibiotics were then changed to Zosyn and vancomycin. Patient also had some hypersomnolence and confusion yesterday for which her narcotics were changed from oxycodone which she chronically takes for back pain and switched to [place] every 6, IV Tylenol and Toradol and patient continues to have significant back pain. She denies chest pain, shortness of breath, nausea or vomiting. She denies any diarrhea. She does have decreased appetite which is been going on since admission. She states that she feels better from yesterday and recognizes that she was lethargic yesterday. Today. she has been up for shower and has had a bowel movement. Patient had low urine output yesterday and received a dose of Lasix. She had a CAT scan of the brain that showed cerebral atrophy and chronic small vessel ischemia. No acute intracranial process. She states that she was coughing a lot this morning but no denies shortness of breath. Chest x-ray from this morning shows minimal pulmonary vascular congestion cannot be exaggerated by low lung volumes in addition to persistent unchanged retrocardiac airspace disease, likely atelectasis and trace pleural effusions. Patient was using incentive spirometer 2000 mL she yesterday. She has had no significant wound concerns. Chest tubes and [place] are out. Patient denies any burning or pain with urination. . Now back in the intensive care unit she's had some abdominal pain and with worsening of her status including lactic acidosis to was concerns to ischemic colitis. She has been seen by surgery is being closely followed. She is on antimicrobial therapy with piperacillin tazobactam and vancomycin which would give coverage for ischemic colitis. Severe back pain is modestly controlled at this time. Patient is given a fluid bolus it appears that her lactic acid has dropped from 3.5-1.0. Fluids were also changed from lactated Ringer's to D5/ 0.45% NaCl with 20 mEq of KCl 12/18/2017 patient is sitting up in the chair looking considerably better. She has some clear liquids that she is able to ingest. Abdominal pain is improved. She is not having further fever or hypotension. Lactic acid is improved 12/21/2017 the patient had a significant change of her status and was found evidence of a perforated viscus and consequently the operating room yesterdaywhere exploratory laparotomy was performed, there is evidence of necrosis the transverse colon and of the right colon and consequently colectomy was performed in ileostomy was placed. Postoperatively the patient is now having some improvement. Vasopressor therapy has been held. Oxygenation is stable and she has no new complication. 12/22/2017 patient has had some improvement today that she is extubated and is stable after this has occurred. She is in no vasopressor therapy, has adequate oxygenation and urinary output. He is receiving some peripheral nutrition while her gastrointestinal function recovers. December 24 2017 patient continues to have improvement. Doing well extubated and off vasopressor therapy. Is awaiting recovery of her gastrointestinal function. Abdominal pain is minimal. She's been up in the chair without difficulties and is doing well with her incentive spirometry. Objective - Vital Signs Vital signs: Vital Signs Temp 98.1 F 12/24/17 12:00 Pulse 89 12/24/17 15:34 Resp 25 H 12/24/17 15:00 BP 134/73 12/24/17 15:00 Pulse Ox 98 12/24/17 15:00 Intake & Output 12/23/17 12/24/17 12/24/17 18:59 06:59 18:59 Intake Total 1030 827 867 Output Total 2500 720 1325 Balance -1470 107 -458 Weight 103.5 kg 104 kg 104 kg Intake: IV 888 806 567 Amino Acid 4.25%-D10w+ 715 770 540 Lytes*E* 1,000 ml @ 65 mls/hr IV .BY DURATION WILLIAM Rx#:[id number] Meropenem 2 gm In Sodium 100 Chloride 0.9% 100 ml @ 200 mls/hr IVPB Q12HR WILLIAM Rx#:[id number] Pressure Bags 33 36 27 Sodium Chloride 0.9% 1, 40 000 ml @ 125 mls/hr IV . Q8H WILLIAM Rx#:[id number] Intake, IV Titration 142 21 300 Amount ACETAMINOPHEN IV (For NPO 100 ) 1,000 mg In Empty Bag 1 bag @ 400 mls/hr IVPB Q6HR WILLIAM Rx#:[id number] Fat Emulsion 20% 250 ml 42 21 In Empty Bag 1 bag @ 21 mls/hr IV DAILY@1600 WILLIAM Rx#:[id number] Meropenem 2 gm In Sodium 100 Chloride 0.9% 100 ml @ 200 mls/hr IVPB Q12HR WILLIAM Rx#:[id number] Potassium Chloride 10 meq 200 In Water For Injection 1 100ml.bag @ 100 mls/hr IVPB Q1H WILLIAM Rx#: [id number] Output: Gastric Drainage 50 50 Drainage 200 200 Medial Abdomen 200 200 Urine 2250 520 1155 Stool 120 Other: Voiding Method Indwelling Catheter Indwelling Catheter Indwelling Catheter ABP, PAP, CO, CI - Last Documented Arterial Blood Pressure 159/93 Pulmonary Artery Pressure 4/4 Cardiac Output 4.5 Cardiac Index 2.5 - Exam Gen: This is a 72-year-old female. supine she is extubated and comfortable HEENT: Head is atraumatic, normocephalic. Pupils equal, round. Sclerae is anicteric. Mucous members of the mouth are moist. NECK: Supple. No JVD. No lymphadenopathy. No thyromegaly. LUNGS: Clear to auscultation. No wheezes or rhonchi. No intercostal retractions. HEART: Regular rate and rhythm. No murmur. Sternal wound is intact. No significant drainage, erythema. ABDOMEN: recent surgery ileostomy in place large amount of bilious material is noted. Bowel sounds are quiet. EXTREMITIES: No pedal edema. Wound and left lower extremity shows no signs of infection. No drainage, significant erythema or edema. NEUROLOGICAL: Patient is awake alert and interactive Skin the surgical site the chest wall is intact without erythema crepitance or fluctuance vein harvest site is intact.abdominal incision has serous drainage. - Labs CBC & Chem 7: 12/24/17 04:31 12/24/17 04:31 Labs: Abnormal Lab Results - Last 24 Hours (Table) 12/23/17 12/24/17 12/24/17 Range/Units 17:59 00:20 04:31 WBC (3.8-10.6) k/uL RBC (3.80-5.40) m/uL Hgb (11.4-16.0) gm/dL Hct (34.0-46.0) % MCHC (31.0-37.0) g/dL RDW (11.5-15.5) % Neutrophils # (1.3-7.7) k/uL Lymphocytes # (1.0-4.8) k/uL Chloride 110 H (98-107) mmol/L Carbon Dioxide 20 L (22-30) mmol/L BUN 21 H (7-17) mg/dL Glucose 158 H (74-99) mg/dL POC Glucose (mg/dL) 154 H 152 H (75-99) mg/dL Calcium 7.8 L (8.4-10.2) mg/dL Alkaline Phosphatase 143 H (38-126) U/L Total Protein 4.1 L (6.3-8.2) g/dL Albumin 1.9 L (3.5-5.0) g/dL 12/24/17 12/24/17 Range/Units 04:31 13:07 WBC 19.2 H (3.8-10.6) k/uL RBC 3.01 L (3.80-5.40) m/uL Hgb 8.2 L (11.4-16.0) gm/dL Hct 27.1 L (34.0-46.0) % MCHC 30.3 L (31.0-37.0) g/dL RDW 16.2 H (11.5-15.5) % Neutrophils # 17.7 H (1.3-7.7) k/uL Lymphocytes # 0.6 L (1.0-4.8) k/uL Chloride (98-107) mmol/L Carbon Dioxide (22-30) mmol/L BUN (7-17) mg/dL Glucose (74-99) mg/dL POC Glucose (mg/dL) 171 H (75-99) mg/dL Calcium (8.4-10.2) mg/dL Alkaline Phosphatase (38-126) U/L Total Protein (6.3-8.2) g/dL Albumin (3.5-5.0) g/dL Laboratory Results WBC 19.2 k/uL (3.8-10.6) H 12/24/17 04:31 RBC 3.01 m/uL (3.80-5.40) L 12/24/17 04:31 Hgb 8.2 gm/dL (11.4-16.0) L 12/24/17 04:31 Hct 27.1 % (34.0-46.0) L 12/24/17 04:31 MCV 89.9 fL (80.0-100.0) 12/24/17 04:31 MCH 27.3 pg (25.0-35.0) 12/24/17 04:31 MCHC 30.3 g/dL (31.0-37.0) L 12/24/17 04:31 RDW 16.2 % (11.5-15.5) H 12/24/17 04:31 Plt Count 389 k/uL (150-450) 12/24/17 04:31 Neutrophils % 92 % 12/24/17 04:31 Neutrophils % (Manual) 75 % 12/20/17 04:30 Band Neutrophils % 7 % 12/20/17 04:30 Lymphocytes % 3 % 12/24/17 04:31 Lymphocytes % (Manual) 7 % 12/20/17 04:30 Monocytes % 2 % 12/24/17 04:31 Monocytes % (Manual) 5 % 12/20/17 04:30 Eosinophils % 2 % 12/24/17 04:31 Eosinophils % (Manual) 2 % 12/20/17 04:30 Basophils % 0 % 12/24/17 04:31 Metamyelocytes % 3 % 12/20/17 04:30 Myelocytes % 3 % 12/20/17 04:30 Neutrophils # 17.7 k/uL (1.3-7.7) H 12/24/17 04:31 Neutrophils # (Manual) 11.70 k/uL (1.3-7.7) H 12/20/17 04:30 Lymphocytes # 0.6 k/uL (1.0-4.8) L 12/24/17 04:31 Lymphocytes # (Manual) 1.00 k/uL (1.0-4.8) 12/20/17 04:30 Monocytes # 0.4 k/uL (0-1.0) 12/24/17 04:31 Monocytes # (Manual) 0.72 k/uL (0-1.0) 12/20/17 04:30 Eosinophils # 0.3 k/uL (0-0.7) 12/24/17 04:31 Eosinophils # (Manual) 0.29 k/uL (0-0.7) 12/20/17 04:30 Basophils # 0.0 k/uL (0-0.2) 12/24/17 04:31 Metamyelocytes # (Man) 0.43 k/uL (0) H 12/20/17 04:30 Myelocytes # (Manual) 0.43 k/uL (0) H 12/20/17 04:30 Nucleated RBCs 0 /100 WBC (0-0) 12/20/17 04:30 Manual Slide Review Performed 12/22/17 04:23 Toxic Granulation Present 12/22/17 04:23 Large Platelets Present 12/18/17 04:30 RBC Morphology Normal 12/11/17 16:55 Polychromasia Present 12/20/17 04:30 Hypochromasia Moderate 12/24/17 04:31 Poikilocytosis Slight 12/24/17 04:31 Poikilocytosis (manual Present 12/18/17 04:30 Anisocytosis Slight 12/24/17 04:31 PT 10.1 sec (9.0-12.0) 12/15/17 23:07 INR 1.0 (<1.2) 12/15/17 23:07 APTT 49.0 sec (22.0-30.0) H 12/19/17 04:14 Sample Site [email or web address] 12/22/17 10:36 ABG pH 7.42 (7.35-7.45) 12/22/17 10:36 ABG pCO2 26 mmHg (35-45) L 12/22/17 10:36 ABG pO2 100 mmHg (83-108) 12/22/17 10:36 ABG HCO3 17 mmol/L (21-25) L 12/22/17 10:36 ABG Total CO2 18 mmol/L (19-24) L 12/22/17 10:36 ABG O2 Saturation 98.3 % (94-97) H 12/22/17 10:36 ABG Base Excess -7.4 mmol/L 12/22/17 10:36 ABG Hematocrit 20 % (34.0-46.0) L* 12/11/17 12:13 [place] Test Yes 12/22/17 04:10 ABG Sodium 136 mmol/L (135-146) 12/11/17 12:13 ABG Potassium 4.4 mmol/L (3.4-4.5) 12/11/17 12:13 ABG Ionized Calcium 4.2 mg/dL (4.5-5.3) L 12/11/17 12:13 ABG Glucose 204 mg/dL (75-99) H 12/11/17 12:13 ABG Lactic Acid 0.9 mmol/L (0.5-1.6) 12/21/17 04:30 Hemoglobin 6.4 gm/dL (11.4-16.0) L* 12/11/17 12:13 FiO2 40 % 12/22/17 10:36 Sodium 137 mmol/L (137-145) 12/24/17 04:31 Potassium 3.8 mmol/L (3.5-5.1) 12/24/17 04:31 Chloride 110 mmol/L (98-107) H 12/24/17 04:31 Carbon Dioxide 20 mmol/L (22-30) L 12/24/17 04:31 Anion Gap 7 mmol/L 12/24/17 04:31 BUN 21 mg/dL (7-17) H 12/24/17 04:31 Creatinine 0.70 mg/dL (0.52-1.04) 12/24/17 04:31 Est GFR (CKD-EPI)AfAm >90 (>60 ml/min/1.73 sqM) 12/24/17 04:31 Est GFR (CKD-EPI)NonAf 88 (>60 ml/min/1.73 sqM) 12/24/17 04:31 Glucose 158 mg/dL (74-99) H 12/24/17 04:31 POC Glucose (mg/dL) 171 mg/dL (75-99) H 12/24/17 13:07 POC Glu Trials Manager ID Milli Mendoza 12/24/17 13:[address] Glu mg/dL 186 12/08/17 06:55 Hemoglobin A1c 8.1 % (4.0-6.0) H 12/08/17 06:55 Lactic Ac Sepsis Rflx Y 12/15/17 10:17 Plasma Lactic Acid [place] 0.7 mmol/L (0.7-2.0) 08/24/18 09:15 Calcium 7.8 mg/dL (8.4-10.2) L 12/24/17 04:31 Ionized Calcium [place] 5.0 mg/dL (4.5-5.3) 12/24/17 04:31 Phosphorus 2.9 mg/dL (2.5-4.5) 12/24/17 04:31 Magnesium 2.3 mg/dL (1.6-2.3) 12/24/17 04:31 Total Bilirubin 0.4 mg/dL (0.2-1.3) 12/24/17 04:31 AST 22 U/L (14-36) 12/24/17 04:31 ALT 29 U/L (9-52) 12/24/17 04:31 Alkaline Phosphatase 143 U/L (38-126) H 12/24/17 04:31 Total Protein 4.1 g/dL (6.3-8.2) L 12/24/17 04:31 Albumin 1.9 g/dL (3.5-5.0) L 12/24/17 04:31 Prealbumin <5.0 mg/dL (18.0-42.0) L 12/22/17 04:23 Triglycerides 171 mg/dL (<150) H 12/23/17 04:32 Cholesterol 129 mg/dL (<200) 12/08/17 06:55 LDL Cholesterol, Calc 45 mg/dL (0-99) 12/08/17 06:55 HDL Cholesterol 66 mg/dL (40-60) H 12/08/17 06:55 Amylase <30 U/L (30-110) L 12/14/17 15:37 Lipase 25 U/L (23-300) 12/14/17 15:37 TSH 2.940 mIU/L (0.465-4.680) 12/08/17 06:55 Arterial Blood Potassium 4.4 mmol/L (3.4-4.5) 12/11/17 12:13 Arterial Blood Glucose 204 mg/dL (75-99) H 12/11/17 12:13 Urine Color Yellow 12/08/17 12:00 Urine Appearance Cloudy (Clear) H 12/08/17 12:00 Urine pH 7.5 (5.0-8.0) 12/08/17 12:00 Ur Specific [place] 1.044 (1.001-1.035) H 12/08/17 12:00 Urine Protein Negative (Negative) 12/08/17 12:00 Urine Glucose (UA) Negative (Negative) 12/08/17 12:00 Urine Ketones Negative (Negative) 12/08/17 12:00 Urine Blood Moderate (Negative) H 12/08/17 12:00 Urine Nitrite Negative (Negative) 12/08/17 12:00 Urine Bilirubin Negative (Negative) 12/08/17 12:00 Urine Urobilinogen <2.0 mg/dL (<2.0) 12/08/17 12:00 Ur Leukocyte Esterase Small (Negative) H 12/08/17 12:00 Urine RBC 2 /hpf (0-5) 12/08/17 12:00 Urine WBC 3 /hpf (0-5) 12/08/17 12:00 Ur Squamous Epith Cells 1 /hpf (0-4) 12/08/17 12:00 Urine Bacteria Occasional /hpf (None) H 12/08/17 12:00 Urine Mucus Rare /hpf (None) H 12/08/17 12:00 Stool Occult Blood Positive (Negative) H 12/16/17 04:45 Stl Cryptosporidium Ag Negative (Negative) 12/15/17 14:15 Stool Giardia Source Stool 12/15/17 14:15 Stl Giardia Antigen Negative (Negative) 12/15/17 14:15 Vancomycin Trough 17.7 ug/mL 12/16/17 08:33 C. difficile (EIA) Intrp Negative (Negative) 12/16/17 10:35 Hepatitis A IgM Ab Non-Reactive (Non-Reactive) 12/08/17 06:55 Hep Bs Antigen Non-Reactive (Non-Reactive) 12/08/17 06:55 Hep B Core IgM Ab Non-Reactive (Non-Reactive) 12/08/17 06:55 Hep C IgG Ab Non-Reactive (Non-Reactive) 12/08/17 06:55 Blood Type B Positive 12/20/17 11:26 Blood Type Confirm B Positive 12/10/17 10:21 Blood Type Recheck No 12/20/17 11:26 Antibody Screen NEGATIVE 12/20/17 11:26 Crossmatch See Detail 12/20/17 11:26 Transfuse Platelets 12/11/17 12/10/17 05:38 Spec Expiration Date 12/23/2017 - 2326 12/20/17 11:26 Microbiology 12/13/17 22:12 Blood Blood Culture - Final No Growth after 144 hours 12/15/17 14:15 Stool Stool Culture - Final 12/12/17 17:00 Urine,Catheterized Urine Culture - Final 12/08/17 12:00 Urine,Clean Catch Urine Culture - Final Escherichia coli 12/08/17 12:00 Nasal Swab Nasal Screen MRSA/MSSA - Final Assessment and Plan (1) E. coli sepsis Narrative/Plan: 72 year old woman with history of CAD failed stress test now s/p CABG and was progressing but developed fever to 102. Found to have UTI and is now improving. He doesn't history of chronic back pain been of some contention over the last day because of excess sedation from her pain medications. She currently is on minimal premedication with orders to ensure that she is at least sitting up and getting some ambulation. Her shortness of breath is definitely improved her chest is without significant pain. She does have a history of urinary tract infections in the past, since the [place] is out she has some minimal discomfort but does not feel miserable. She's had difficulty with incontinence since the [place] has been removed, bladder scan was performed with only 200 mL noted. She does have a urine culture with Escherichia coli that is resistant to quinolone therapy. With her fever the antibiotic therapy was enhance Zosyn and vancomycin. Sternal wound does not appear to be infected at the moment does not seem to have pneumonia. 12/15/2017 reveals the patient to have a change of her status in that she developed abdominal pain as well as worsening of her status. This concerns to ischemic colitis and she was moved to the intensive care unit. She's been seen by general surgery. It is being monitored. She had worsening lactic acidosis is now showing improvement after fluid challenge. She is not having chest pain and her shortness of breath continues to improve. Blood cultures are negative but urine culture did have E. coli years that she does have significant underlying infection in the urinary system. Treatment has been with Zosyn which should also cover ischemic colitis at that is occurring at this time. There are concerns to bowel compromise possibly for microemboli in the postoperative time frame. With this heparin has been started. Cultures are process and she'll be monitored. Her significant leukocytosis showing some slight improvement. 12/18/2017 the patient is having some improvement. She is not having as much pain and is able to tolerate some oral intake with clear liquids and has had some flatus. Abdominal pain is steadily improved and overall feels better. Leukocytosis is trending to improvement. X-ray shows evidence of some worsening of the hilar edema.there are no new positive cultures on the E. coli has been isolated. Antibiotic therapy with Zosyn to complete 7 days of therapy for her E. coli urinary tract infection. Surgery is following for the transient ischemic colitis she's been anticoagulated, and final plans are being developed as far as her long-term anticoagulation. The lactic acidosis completely resolved. December 21 2017 after the patient had a major change in her statusand was found evidence of ischemic colitis in the transverse and right colon and underwent colectomy and ileostomy placement. She's now having some improvement in her vasopressor therapy has now been put on hold with resolution of the hypotension. Patient seems to be comfortable. With her significant change of status antimicrobial therapy was migrated to meropenem and Eraxis pending culture results.she has a persistent leukocytosis related to the current sepsis which is showing some improvement. She did have profound anemia and was transfused and seems to be stable at this time. No Evidence of any new acute bleeding. 12/22/2017 the patient is now extubated and comfortable. Gastrointestinal function recovery is awaited and peripheral nutrition has been established. Leukocytosis is improving. She no longer is requiring vasopressor therapy. Seems responding well to meropenem and Eraxis and these will continue for now. Patient's family is present and course in therapy are discussed including the need for rehab after discharge. 12/24/2017 patient continued to show improvement. Doing well after her recent surgical intervention. Responding well to antimicrobial therapy with meropenem and Eraxis. We'll plan at least 10 days of antimicrobial therapy regarding her significant sepsis from the ischemic colitis and leak. The profound leukocytosis is improving diminishing to 19.2 from 29.4. Remains afebrile. Status: Acute Code(s): A41.51 - SEPSIS DUE TO ESCHERICHIA COLI [E. COLI] SNOMED Code(s): 689177483 (2) Urinary tract infection Current Visit: Yes Status: Acute Code(s): N39.0 - URINARY TRACT INFECTION, SITE NOT SPECIFIED SNOMED Code(s): 81415687 (3) Coronary artery disease involving left main coronary artery Current Visit: Yes Status: Chronic Code(s): I25.10 - ATHSCL HEART DISEASE OF [place] CORONARY ARTERY W/O ANG PCTRS SNOMED Code(s): 979887768 (4) Fever Current Visit: Yes Status: Acute Code(s): R50.9 - FEVER, UNSPECIFIED SNOMED Code(s): 433879818
[2017-12-24] MEDS: FAT EMULSION 20% 250 ML in EMPTY BAG 1 BAG IV SCH (17:22)
[2017-12-24] MEDS: 1: MVI, ADULT NO.4 WITH VIT K 10 ML, TRACE (CONC-1ML/DOSE) 1 ML in AMINO ACID 5%-D15W+LY IV SCH ×3 (17:23)
[2017-12-24 17:30] LABS: Glucose,Whole Blood 168 mg/dL (75-99)
[2017-12-24 19:03] LABS: Glucose,Whole Blood 170 mg/dL (75-99)
[2017-12-24] MEDS: ACETAMINOPHEN TAB 325 MG TAB PO PRN (20:58)
[2017-12-24] MEDS: FUROSEMIDE 10 MG/ML 2 ML VIAL IV SCH (20:59)
[2017-12-24] MEDS ORDERED: cloNIDine 0.1 MG/24HR PATCH TRANSDERM SCH (22:45)
[2017-12-25] MEDS: HYDROmorphone 1 MG/ML 1 ML SYRINGE IVP PRN ×4 (00:04→19:30)
[2017-12-25] MEDS: METOPROLOL TARTRATE 5 MG/5 ML VIAL IVP SCH ×5 (00:29→23:25)
[2017-12-25] MEDS: POTASSIUM CHLORIDE 10 MEQ in WATER FOR INJECTION 1 100ML.BAG IVPB SCH ×4 (00:35→10:06)
[2017-12-25] MEDS: hydrALAZINE HCL 20 MG/ML 1 ML VIAL IVP SCH ×4 (00:55→18:20)
[2017-12-25] MEDS: HEPARIN SODIUM,PORCINE 5,000 UNIT/ML 1 ML VIAL SQ SCH ×3 (00:55→16:55)
[2017-12-25] MEDS: ACETAMINOPHEN TAB 325 MG TAB PO PRN ×3 (03:56→22:28)
[2017-12-25 04:38] LABS: Anisocytosis Slight; Basophils % (A) 0 %; Eosinophils # (A) 0.4 k/uL (0-0.7); Eosinophils % (A) 2 %; HCT 27.7 % (34.0-46.0); HGB 8.5 gm/dL (11.4-16.0); Hypochromasia Slight; Lymphocytes # (A) 0.7 k/uL (1.0-4.8); Lymphocytes % (A) 5 %; MCH 26.6 pg (25.0-35.0); MCHC 30.8 g/dL (31.0-37.0); MCV 86.4 fL (80.0-100.0); Monocytes # (A) 0.6 k/uL (0-1.0); Monocytes % (A) 4 %; Neutrophils # (A) 12.8 k/uL (1.3-7.7); Neutrophils % (A) 87 %; Platelet Count 402 k/uL (150-450); Poikilocytosis Slight; RDW 16.2 % (11.5-15.5); WBC 14.7 k/uL (3.8-10.6)
[2017-12-25 04:44] LABS: ALT 30 U/L (9-52); AST 23 U/L (14-36); Albumin 1.9 g/dL (3.5-5.0); Alkaline Phosphatase 210 U/L (38-126); Anion Gap 5 mmol/L; Blood Urea Nitrogen 23 mg/dL (7-17); Calcium 7.8 mg/dL (8.4-10.2); Carbon Dioxide 23 mmol/L (22-30); Chloride 108 mmol/L (98-107); Glucose 165 mg/dL (74-99); Magnesium 2.1 mg/dL (1.6-2.3); Phosphorus 2.8 mg/dL (2.5-4.5); Potassium 3.9 mmol/L (3.5-5.1); Sodium 136 mmol/L (137-145); Total Bilirubin 0.5 mg/dL (0.2-1.3); Total Protein 4.3 g/dL (6.3-8.2)
[2017-12-25] MEDS: INSULIN ASPART 100 UNIT/ML 1 ML 10 ML VIAL SQ SCH ×4 (05:15→17:18)
[2017-12-25] MEDS: KETOROLAC 30 MG/ML 1 ML VIAL IVP SCH ×4 (05:59→23:10)
[2017-12-25] MEDS: 1: MVI, ADULT NO.4 WITH VIT K 10 ML, TRACE (CONC-1ML/DOSE) 1 ML in AMINO ACID 5%-D15W+LY IV SCH ×6 (06:00→10:33)
--- NOTE | 2017-12-25 07:32 | P.PN ---
Subjective Progress Note Date: 12/25/17 Principal diagnosis: Coronary artery disease with critical left main disease. Preserved left ventricular function. Previous medical history of hypertension, hyperlipidemia , diabetes mellitus with preoperative hemoglobin A1c 8.1%, hypothyroid, chest granulomatous disease, peripheral vascular disease status post right fem-pop bypass, previous tobacco dependence with FEV1 109% of predicted in November 2016, recent fall in June 2017 with torn right rotator cuff, questionable DVT with previous Coumadin use greater than 2 years ago, syncopal episodes, paroxysmal atrial fibrillation, chronic low back pain, obesity, and depression. Preoperative E. coli urinary tract infection. POD #14 urgent quadruple coronary artery bypass grafting using the left internal mammary sequentially to the diagonal artery and to the left anterior descending artery, reverse saphenous vein graft from the aorta to the first obtuse marginal, reverse saphenous vein graft from the aorta to the third obtuse marginal artery. Bilateral pulmonary vein isolation using the AtriCure radiofrequency clamp. Exclusion of the left atrial appendage using a 35 mm AtriClip. Intraoperative transesophageal echocardiogram and epi-aortic scanning. Postoperative elevation in transaminases, an unexpected outcome, resolving. Leukocytosis, present preoperatively. Postoperative diarrhea, an unexpected outcome. Postoperative normocytic, normochromic anemia, and expected outcome of surgery secondary to cardiopulmonary bypass and hemodilution. Postoperative urinary retention, an unexpected outcome. Postoperative pneumoperitoneum, an unexpected outcome. Necrosis of the transverse colon, right colon, an unexpected outcome. Sepsis, septic shock, an unexpected outcome. POD #4 right colectomy, transverse colectomy, takedown splenic flexure, ileostomy performed by Dr. Montoya. Postoperative prolonged mechanical ventilation, need to be reintubated for second surgery, an unexpected outcome. Patient's currently sitting up in the recliner in the intensive care unit in no acute distress. Patient is much more alert this morning with decrease narcotics. Patient has had continued high blood pressure despite addition of IV hydralazine, Catapres patch added per cardiology. Otherwise hemodynamically stable. Wound VAC in place. Ostomy with dark brown drainage, no flatus in the bag. Was started on ice chips, popsicles yesterday. Complaints of abdominal pain this morning, rated as 8 out of 10, just received IV Dilaudid. Objective - Vital Signs Vital signs: Vital Signs Temp 98.0 F 12/25/17 04:00 Pulse 83 12/25/17 07:00 Resp 27 H 12/25/17 07:00 BP 152/77 12/25/17 07:00 Pulse Ox 98 12/25/17 07:00 Intake & Output 12/24/17 12/25/17 12/25/17 18:59 06:59 18:59 Intake Total 2098 927 63 Output Total 177 1825 825 Balance 323 -898 -762 Weight 104 kg 105 kg Intake: IV 678 927 63 Amino Acid 4.25%-D10w+ 600 Lytes*E* 1,000 ml @ 65 mls/hr IV .BY DURATION WILLIAM Rx#:[id number] Amino Acid 5%-D15w+Lytes* 660 60 E* 1,000 ml @ 60 mls/hr IV .BY DURATION WILLIAM Rx#: [id number] Fat Emulsion 20% 250 ml 42 231 In Empty Bag 1 bag @ 21 mls/hr IV DAILY@1600 WILLIAM Rx#:[id number] Pressure Bags 36 36 3 Intake, IV Titration 1420 Amount Amino Acid 5%-D15w+Lytes* 1000 E* 1,000 ml @ 60 mls/hr IV .BY DURATION WILLIAM Rx#: [id number] Meropenem 2 gm In Sodium 100 Chloride 0.9% 100 ml @ 200 mls/hr IVPB Q12HR WILLIAM Rx#:[id number] Mvi, Adult No.4 with Vit 120 K 10 ml Trace (Conc-1Ml/ Dose) 1 ml In Amino Acid 5%-D15w+Lytes*E* 1,000 ml @ 60 mls/hr IV .BY DURATION WILLIAM Rx#: [id number] Potassium Chloride 10 meq 200 In Water For Injection 1 100ml.bag @ 100 mls/hr IVPB Q1H WILLIAM Rx#: [id number] Output: Gastric Drainage 50 500 Drainage 150 150 125 Medial Abdomen 150 150 125 Urine 1455 1675 200 Stool 120 Other: Voiding Method Indwelling Catheter Indwelling Catheter # Voids 1 ABP, PAP, CO, CI - Last Documented Arterial Blood Pressure 159/93 Pulmonary Artery Pressure 4/4 Cardiac Output 4.5 Cardiac Index 2.5 - Constitutional General appearance: Present: cooperative, no acute distress, obese - Respiratory Details: Lungs sounds diminished bilaterally, left side greater than right. Respirations even, nonlabored. Currently on 2 L nasal cannula with oxygen saturation 97%. Able to achieve 1000 mL on her incentive spirometry. Strong cough. - Cardiovascular Details: S1, S2 present. Regular rate and rhythm, sinus rhythm on telemetry. Sternum stable. Palpable peripheral pulses bilaterally. Generalized nonpitting edema present. Right internal jugular central line present. Antiembolism stockings, SCDs present. - Gastrointestinal Gastrointestinal Comment(s): Abdomen soft, nondistended. Very hypoactive bowel sounds present. Right lower quadrant ileostomy present with dark brown liquid drainage, approximately 20 mL output overnight, no flatus in bag currently, patient did have small amount of flatus in the bag yesterday afternoon. NG tube present to low intermittent suction with 500 mL green thin drainage in the last 12 hours until patient was allowed to have ice chips and popsicles. - Genitourinary Genitourinary Comment(s): Almaguer present draining clear, yellow urine. Output is 60-350 mL per hour overnight, 1395 mL diuresis in the last 8 hours. - Neurologic Neurologic: Present: CNII-XII intact - Musculoskeletal Musculoskeletal: Present: generalized weakness, strength equal bilaterally - Psychiatric Psychiatric: Present: A&O x's 3, appropriate affect, intact judgment & insight - Allied health notes Allied health notes reviewed: nursing - Labs CBC & Chem 7: 12/25/17 04:10 12/25/17 04:10 Labs: Abnormal Lab Results - Last 24 Hours (Table) 12/24/17 12/24/17 12/24/17 Range/Units 13:07 17:28 19:01 WBC (3.8-10.6) k/uL RBC (3.80-5.40) m/uL Hgb (11.4-16.0) gm/dL Hct (34.0-46.0) % MCHC (31.0-37.0) g/dL RDW (11.5-15.5) % Neutrophils # (1.3-7.7) k/uL Lymphocytes # (1.0-4.8) k/uL Sodium (137-145) mmol/L Chloride (98-107) mmol/L BUN (7-17) mg/dL Glucose (74-99) mg/dL POC Glucose (mg/dL) 171 H 168 H 170 H (75-99) mg/dL Calcium (8.4-10.2) mg/dL Alkaline Phosphatase (38-126) U/L Total Protein (6.3-8.2) g/dL Albumin (3.5-5.0) g/dL 12/25/17 12/25/17 Range/Units 04:10 04:10 WBC 14.7 H (3.8-10.6) k/uL RBC 3.20 L (3.80-5.40) m/uL Hgb 8.5 L (11.4-16.0) gm/dL Hct 27.7 L (34.0-46.0) % MCHC 30.8 L (31.0-37.0) g/dL RDW 16.2 H (11.5-15.5) % Neutrophils # 12.8 H (1.3-7.7) k/uL Lymphocytes # 0.7 L (1.0-4.8) k/uL Sodium 136 L (137-145) mmol/L Chloride 108 H (98-107) mmol/L BUN 23 H (7-17) mg/dL Glucose 165 H (74-99) mg/dL POC Glucose (mg/dL) (75-99) mg/dL Calcium 7.8 L (8.4-10.2) mg/dL Alkaline Phosphatase 210 H (38-126) U/L Total Protein 4.3 L (6.3-8.2) g/dL Albumin 1.9 L (3.5-5.0) g/dL - Imaging and Cardiology Chest x-ray: image reviewed Assessment and Plan (1) Coronary artery disease involving left main coronary artery Current Visit: Yes Status: Chronic Code(s): I25.10 - ATHSCL HEART DISEASE OF [place] CORONARY ARTERY W/O ANG PCTRS SNOMED Code(s): 604918626 (2) Hypertension Current Visit: Yes Status: Chronic Code(s): I10 - ESSENTIAL (PRIMARY) HYPERTENSION SNOMED Code(s): 83398516 (3) Hyperlipidemia Current Visit: Yes Status: Chronic Code(s): E78.5 - HYPERLIPIDEMIA, UNSPECIFIED SNOMED Code(s): 96872814 (4) Diabetes Current Visit: Yes Status: Chronic Code(s): E11.9 - TYPE 2 DIABETES MELLITUS WITHOUT COMPLICATIONS SNOMED Code(s): 86696235 (5) Peripheral vascular disease Current Visit: Yes Status: Chronic Code(s): I73.9 - PERIPHERAL VASCULAR DISEASE, UNSPECIFIED SNOMED Code(s): 109698442 (6) Family history of heart disease Current Visit: Yes Status: Chronic Code(s): Z82.49 - FAMILY HX OF ISCHEM HEART DIS AND OTH DIS OF THE CIRC SYS SNOMED Code(s): 262526259 (7) Tobacco dependence in remission Current Visit: No Status: Resolved Code(s): F17.201 - NICOTINE DEPENDENCE, UNSPECIFIED, IN REMISSION SNOMED Code(s): 275970933 (8) Hypothyroid Current Visit: Yes Status: Chronic Code(s): E03.9 - HYPOTHYROIDISM, UNSPECIFIED SNOMED Code(s): 31941969 (9) Syncopal episodes Current Visit: No Status: Chronic Code(s): R55 - SYNCOPE AND COLLAPSE SNOMED Code(s): 367144243 (10) History of DVT (deep vein thrombosis) Current Visit: No Status: Resolved Code(s): Z86.718 - PERSONAL HISTORY OF OTHER VENOUS THROMBOSIS AND EMBOLISM SNOMED Code(s): 678206545 (11) History of atrial fibrillation Current Visit: No Status: Resolved Code(s): Z86.79 - PERSONAL HISTORY OF OTHER DISEASES OF THE CIRCULATORY SYSTEM SNOMED Code(s): 828213974 (12) Chronic low back pain Current Visit: Yes Status: Chronic Code(s): M54.5 - LOW BACK PAIN; G89.29 - OTHER CHRONIC PAIN SNOMED Code(s): 028345699 (13) Depression Current Visit: Yes Status: Chronic Code(s): F32.9 - MAJOR DEPRESSIVE DISORDER, SINGLE EPISODE, UNSPECIFIED SNOMED Code(s): 90133513 Plan: 1. Continue low-dose aspirin, statin, Plavix, hydralazine, beta sheree. Will increase beta sheree therapy as tolerated. Catapres patch added per cardiology. 2. Bronchodilators per pulmonology. 3. Continue amiodarone for A. fib prophylaxis. Will need anticoagulation once patient is more stable and all lines and tubes have been discontinued. 4. Continue meropenem, Eraxis for [address] Mccartney. 5. Continue NG tube to low intermittent suction. Patient may have ice chips and popsicles per general surgery. 6. Continue PPN for nutrition. Dietary consult in place. Pre-albumin less than 5. 7. Keep Almaguer for strict accurate I and O's, urinary retention. 8. Left pleural effusion present. May need to be drained. IV Lasix twice daily added. 9. Monitor daily labs, chest x-rays. 10. GI prophylaxis with IV Protonix. DVT prophylaxis with subcu heparin, SCDs. 11. Pain control with current medication regimen. Limit narcotics. IV Toradol and oral Tylenol for pain control. 12. Insulin/diabetic management per Dr. Yousif. 13. Wound VAC per general surgery to abdominal incisions. Will change Monday, Monday, Monday. 14. Order placed for PICC line placement as triple-lumen central line is 5 days old and should be discontinued. 15. More recommendations to follow based on patient's clinical course. Time with Patient: Greater than 30
[2017-12-25] MEDS: IPRATROPIUM-ALBUTEROL 3 ML NEB INHALATION SCH ×4 (07:37→19:26)
--- NOTE | 2017-12-25 07:57 | XR ---
EXAMINATION TYPE: XR chest 1V portable DATE OF EXAM: 12/25/2017 COMPARISON: December 24, 2017 HISTORY: SOB, Follow Up FINDINGS: Indwelling tubes and catheters are unchanged. No change in bibasilar opacities. Stable appearance of the cardio-mediastinal structures at this time. Pleural effusion unchanged. IMPRESSION: 1. Stable portable chest. Clinical correlation and follow up until resolution is recommended.
[2017-12-25] MEDS: AMIODARONE 200 MG TAB PO SCH ×2 (08:55→20:08)
[2017-12-25] MEDS: ASPIRIN 81 MG PO SCH (08:55)
[2017-12-25] MEDS: ATORVASTATIN 40 MG TAB PO SCH (08:56)
[2017-12-25 09:01] LABS: Prothrombin Time 9.9 sec (9.0-12.0)
[2017-12-25] MEDS: DULoxetine HCL 60 MG CAPSULE.DR PO SCH (09:05)
[2017-12-25] MEDS: FUROSEMIDE 10 MG/ML 2 ML VIAL IV SCH ×2 (09:05→20:08)
[2017-12-25] MEDS: LEVOTHYROXINE IVP 100 MCG/5 ML VIAL IV SCH (09:05)
[2017-12-25] MEDS: PANTOPRAZOLE 40 MG/10 ML VIAL IVP SCH (09:16)
[2017-12-25] MEDS: ANIDULAFUNGIN 100 MG in SODIUM CHLORIDE 0.9% 100 ML IVPB SCH (09:16)
[2017-12-25] MEDS: MEROPENEM 2 GM in SODIUM CHLORIDE 0.9% 100 ML IVPB SCH ×2 (10:05→20:08)
[2017-12-25] MEDS: SODIUM CHLORIDE 0.9% 1,000 ML IV SCH (11:12)
[2017-12-25] MEDS: CLOPIDOGREL 75 MG TAB PO SCH (11:12)
[2017-12-25] MEDS: ASCORBIC ACID 500 MG TAB PO SCH (11:17)
[2017-12-25] MEDS: CYANOCOBALAMIN 500 MCG TAB PO SCH (11:18)
--- NOTE | 2017-12-25 11:30 | PN ---
PROGRESS NOTE DATE OF SERVICE: 12/24/2017 PRESENT COMPLAINT: Status post CABG. INTERVAL HISTORY: The patient was seen by me yesterday. Status post CABG for ischemic bowel and resultant ostomy and a wound VAC in place. NG tube remains in place. Patient otherwise n.p.o. Remains in sinus rhythm. There has been some stool in the ostomy bag. The patient has also got an abdominal wound VAC. Pain is controlled. REVIEW OF SYSTEMS: Done for constitutional, cardiovascular, GI, pulmonary; relevant findings as above. CURRENT MEDICATIONS: Reviewed. PHYSICAL EXAMINATION: Temperature 97.9, pulse 92, respiration 25, blood pressure 149/74, pulse ox 98% on 2 L. GENERAL APPEARANCE: Lying in bed, awake. EYES: Pupils equal, conjunctivae normal. HEENT: External appearance of nose and ears normal. Oral cavity dry. NG tube in place. NECK: JVD unable to assess. Mass not palpable. RESPIRATORY: Effort increased. LUNGS: Decreased breath sounds. CARDIOVASCULAR: Heart sounds muffled, minimal edema. ABDOMEN: Some tenderness present. Stool in the ostomy bag. Wound VAC in place. Liver and spleen not palpable. PSYCHIATRY: Alert and oriented x3. Mood and affect tired-appearing. INVESTIGATIONS: White count 9.2, hemoglobin 8.2, potassium 3.8, BUN 21, creatinine 0.7. Accu-Cheks noted. Albumin 1.9. ASSESSMENT: 1. Coronary artery disease, status post bypass on 12/11/2017. 2. Acute ischemic bowel, possibly perforation with right transverse colectomy and takedown of the splenic flexure. 3. Acute hypoxic respiratory failure, status post ventilator support. 4. Hypertensive shock from sepsis and septic shock, now recovered. Patient remains on IV meropenem and fluids. 5. Paroxysmal atrial fibrillation. Remains in sinus rhythm. 6. Peripheral artery disease. 7. Hypothyroidism. 8. Diabetes mellitus type 2. 9. Chronic low back pain from arthritis. 10.Depression, not otherwise specified. 11.Obesity; body mass index 34.3. 12.Acute blood loss anemia expected from surgery and hospital acquired from blood draws. 13.Hyperlipidemia. 14.Hypoalbuminemia as an acute phase reactant. PLAN: Continue current medication and treatment plan. Patient is to remain on antibiotics that include Anidulafungin, TPN, lipids, IV meropenem. Patient is slowly improving. Patient's blood pressure has been running on the higher side. Patient has been on IV Lopressor, hydralazine, and in the evening, Dr. Tejeda did order a Catapres patch. MMODL / IJN: [id number] /
[2017-12-25 11:35] LABS: Glucose,Whole Blood 191 mg/dL (75-99)
[2017-12-25] MEDS ORDERED: CALCIUM CARBONATE 500 MG CHEWABLE PO PRN (12:03)
[2017-12-25] MEDS: FERROUS SULFATE 325 MG TAB PO SCH (12:05)
--- NOTE | 2017-12-25 12:18 | P.PN ---
Subjective Progress Note Date: 12/25/17 Principal diagnosis: Status post CABG, status post right colectomy for acute perforated viscus and necrosis of the transverse and right colon. On today's evaluation of a 12/18/2017 Carolyn is back to the intensive care unit. She is postop day #7 following her coronary artery bypass surgery. She got transferred because of an extensive liquidy/watery diarrhea which left her into a dehydrated state and causes some non-anion gap metabolic acidosis. Her bicarb level is down to 14. She had 3 additional liquidy bowel movements this morning. The patient was seen by general surgery. CAT scan of the abdomen was done raising the possibility of an underlying ischemic colitis. She was placed on accommodation Zosyn and vancomycin. No fever or chills. She also had gone into atrial fibrillation. The rate is controlled right now with metoprolol and amiodarone and the patient is also on IV heparin. She is complaining of pain throughout her chest and body mainly in the joints and she has been taken hydrocodone outpatient basis. I restarted her on Cowden 5 every 6 hours for pain control pH is using incentive spirometer. She is on IV fluids and she'll be started on a bicarb drip. The patient's chest x-ray from today showed small bilateral pleural effusion and basilar atelectasis and left lung base. There is also artifact from external objects on the chest x-ray. The postoperative echocardiogram showed a preserved LV function with an ejection fraction of 50-55 %. No valvular abnormalities noted. On today's evaluation of 12/19/2017, the patient is awake and alert and sitting up on a chair. The diarrhea has subsided significantly. She only had liquidy loose bowel movement there was small amount this morning. Otherwise, the patient is was resuscitated IV fluids. The patient received a bicarb infusion yesterday and her serum bicarb normalizes and earlier this morning associated to a normal saline infusion at the rate of 75 mL an hour. Her urine output is around 20-25 mL an hour. The patient's creatinine is normal. BUN is down to 7. Vascular electrodes are all within normal limits and her bicarb level is normalized. No nausea. No vomiting. No abdominal pain. She is taking clear liquid diet. No chest pain. Chest x-ray shows some mild pulmonary vascular congestion and atelectatic changes in lung bases bilaterally. She is on room air oxygen. Sternum stable clean and intact. She has E. coli in the urine and she is on IV Zosyn. Vancomycin was discontinued. IV heparin was discontinued. Her current rhythm is sinus. On 12/20/2017 the patient developed some vague abdominal pain. This pain started approximately 4 AM in the morning. As mentioned earlier the patient is postop from coronary artery bypass surgery and she is postop day #8. The patient is currently in the intensive care unit. X-ray of the chest was done this morning and it showed free air under the diaphragm. This is consistent with pneumoperitoneum and the patient will need further investigation. Immediately the general surgeon was contacted and the patient had a CAT scan of the abdomen and it showed moderate pneumoperitoneum with site of the perforation i not identified although there was suspicion that maybe the distal stomach/duodenal area. The patient currently on IV Zosyn. No cervical leukocytosis. Urine output is dropped down to 20 mL an hour. Her white count from this morning's at 14.3. Patient be taken to the operating room for an expected laparotomy. No altered mentation. No cough or sputum production. No other complaints otherwise for now. On 12/21/2017 I'm seeing this patient for a follow-up. She is a critically ill female patient was taken to the operating room yesterday for an acute bowel perforation. The patient was found to have pneumoperitoneum and the patient was taken to the operating room and the patient underwent expiratory laparotomy and right colectomy and transverse colectomy and takedown of splenic flexure and diverticular colostomy. The patient intraoperatively was found to have necrosis of the transverse colon and the right colon. Postop, the patient was kept intubated and the patient was moved to the intensive care unit for further evaluation and management. Overnight the patient was given fluid aggressively. She was given IV albumin. She was given lactated Ringer solution and normal saline solution. She did drop her pressure and she had also to placed on pressors and she is currently on 3-4 mics of norepinephrine infusion to maintain a mean artery pressure above 65. This morning I give her another liter of lactated Ringer and nontender albumin 5% to bring her CVP above 12. Hemoglobin dropped down to 6.7. Her white count came up to 31.4 and subsequently dropped down to 23. This is expected as the patient had a bowel necrosis and intra-abdominal sepsis. Antibiotic dressings were done and the patient was placed on Merrem and Eraxis. Earlier this morning the patient was on assist-control mode of ventilation and was obvious that the patient was asynchronous and double stacking on a mechanical ventilator. This was occurring even while on 40 mics of Diprivan infusion. Based on this, necessary vent changes were done. The patient was air hungry and she was taken significantly high tidal volumes. I was able to bring the tidal volume of 600 and the rate of 18 with a FiO2 of 40% and a PEEP of 5. Chest x-ray from today showed that the patient had adequate expansion of both lungs. There is a left- sided pleural effusion and ET tube is around 3-4 cm above the al. The net fluid balance over the past 24 hours is +6 L in the urine output is adequate for now. The patient is afebrile. On 12/22/2017 I'm seeing this patient for a follow-up. Note that the patient is postop day #2 following chest was colectomy, right colectomy and ileostomy and the patient is postop day #11 following her coronary artery bypass surgery. This morning the patient was sedated with Diprivan and she was calm and comfortable. Despite being on Diprivan, the patient was easily arousable. She was maintained on assist control mode of ventilation. Throughout the night the patient was an assist-control at the rate of 20 with a tidal volume of 600 and FiO2 of 40% and PEEP of 5. Chest x-ray showing the development of a left-sided pleural effusion. ET tube is in a good location. Rest of the lungs are all in good location is. NG tube is also in place. The blood gases from this morning showed a pH of 7.42 with a pCO2 of 26 and pO2 of 100. No significant orotracheal secretions. Hemodynamically, the patient was aggressively resuscitated IV fluids. She is in a positive fluid balance in order of 6 L at least and the patient was taken off pressors and she's been off the norepinephrine infusion for now. She is producing adequate amount of urine output. She does have a component of non-anion gap metabolic acidosis with a bicarb level of 16. Renal function stable with a creatinine of 0.9. Rest of the electrolytes are all within normal limits. Her white cell count peaked at 27.5 and currently is down to 25. She remains on a broad-spectrum antibiotics including IV Merrem and Ecaris. The cardiac rhythm remains sinus. CVP is somewhat between 10 and 13. Urine output is order of 30-40 mL an hour. Angiopathy was noted. There is also minimal amount of liquidy material within the ileostomy back. Surgical wound site is open and a superior and inferior portion and the wound VAC will be applied to that area. There is no active drainage at this point in time. Based on all this, I give the patient is sedation holiday. She woke up very nicely and she was able to follow commands and answers questions appropriately. Weaning parameters were checked and the patient had a tidal volume of 510 with a vital capacity of 780 within this of 27 and the rapid shallow breathing index of 34. She was given a CPAP trial and following that the patient was extubated to a nasal cannula pH is tolerated extubation without any major difficulties. At this point in time, the patient is extubated, she is following commands and answering questions appropriately. Family is at the bedside. On 12/23/2017, the patient remains extubated. She is postop day #3 following a right colectomy, transverse colectomy and ileostomy and she is postop day #12 following her coronary artery bypass surgery. I was able to wean the patient off the mechanical ventilator and she extubated very nicely without having any major difficulties and currently is on 2 L of oxygen by nasal cannula. Her chest x-ray continues to show a large left-sided pleural effusion. Earlier this morning he was given 40 mg of IV Lasix which improved her urine function and output and the patient is producing more than 50 mL of urine output on hourly basis. She is nothing by mouth. NG tube is in place. Her CVP remains somewhere between 11 and 18. She is producing up to 50 mL of urine output on hourly basis. Rule out able to apply wound VAC to her abdominal wall wound and the open incisions are well covered and she is producing approximately 600 mL of material from the wound VAC system was inserted yesterday. Sternum is stable clean and intact. She is weak and a bit lethargic, slightly worse compared to yesterday and this is probably attributed to her inability to fall asleep throughout the night. No active pain. She is weak. She denies having any specific complaints for now. TPN was started as the patient's pre-albumin and albumin and total protein is extremely low. Serum bicarb is gradually improving is up to 19. On 12/24/2017, the patient is awake and alert and she is postop day #4 from her bowel surgery and postop day #13 from her cardiac surgery. She is awake and alert and she is communicating. She is on 2 L about 2 by nasal cannula. No respiratory distress. She is diuresing and the chest x-ray shows improvement in the volume status and the patient was started on IV Lasix today. She was already producing approximately 40-50 mL an hour of urine output. NG tube is in place and output has been 100 mL over the past 24 hours. The patient has approximately 120cc of output and had ileostomy site. The wound VAC is also in place and the output has been not considerably high. She is doing well. Cardiac rhythm remains in normal sinus mechanism. The patient has TPN for nutritional support. Hemodynamically stable. No hypotension. No pressors requirements. No other significant events overnight. No altered mentation. On 12/25/2017, patient is postoperative day #5 from her bowel surgery, and postoperative day #14 from cardiac surgery. Patient is doing well, she is on 2 L nasal cannula, in no form of distress. Sitting at a bedside chair, asymptomatic. Chest x-ray is suggestive of a good sized left-sided pleural effusion, hence I recommended ultrasound of the chest to be done, may require left-sided thoracentesis. The ultrasound did show good sized left-sided pleural effusion, and I think I will recommend thoracentesis in the next 24 hours. All labs were reviewed including his CBC and renal profile. Clinically the patient is actually doing well. Objective - Vital Signs Vital signs: Vital Signs Temp 98 F 12/25/17 08:00 Pulse 92 12/25/17 11:00 Resp 25 H 12/25/17 11:00 BP 167/78 12/25/17 11:00 Pulse Ox 99 12/25/17 11:00 Intake & Output 12/24/17 12/25/17 12/25/17 18:59 06:59 18:59 Intake Total 5993 927 888 Output Total 5406 4395 1665 Balance 323 -898 -777 Weight 104 kg 105 kg Intake: IV 678 927 415 Amino Acid 4.25%-D10w+ 600 Lytes*E* 1,000 ml @ 65 mls/hr IV .BY DURATION [facility] Rx#:[id number] Amino Acid 5%-D15w+Lytes* 660 300 E* 1,000 ml @ 60 mls/hr IV .BY DURATION [facility] Rx#: [id number] Fat Emulsion 20% 250 ml 42 231 In Empty Bag 1 bag @ 21 mls/hr IV DAILY@1600 [facility] Rx#:[id number] Meropenem 2 gm In Sodium 100 Chloride 0.9% 100 ml @ 200 mls/hr IVPB Q12HR [facility] Rx#:[id number] Pressure Bags 36 36 15 Intake, IV Titration 1420 473 Amount Amino Acid 5%-D15w+Lytes* 1000 273 E* 1,000 ml @ 60 mls/hr IV .BY DURATION [facility] Rx#: [id number] Anidulafungin 100 mg In 100 Sodium Chloride 0.9% 100 ml @ 84 mls/hr IVPB DAILY [facility] Rx#:[id number] Meropenem 2 gm In Sodium 100 Chloride 0.9% 100 ml @ 200 mls/hr IVPB Q12HR [facility] Rx#:[id number] Mvi, Adult No.4 with Vit 120 K 10 ml Trace (Conc-1Ml/ Dose) 1 ml In Amino Acid 5%-D15w+Lytes*E* 1,000 ml @ 60 mls/hr IV .BY DURATION [facility] Rx#: [id number] Potassium Chloride 10 meq 200 In Water For Injection 1 100ml.bag @ 100 mls/hr IVPB Q1H [facility] Rx#: [id number] Potassium Chloride 10 meq 100 In Water For Injection 1 100ml.bag @ 100 mls/hr IVPB Q1H [facility] Rx#: [id number] Output: Gastric Drainage 50 500 Drainage 150 150 125 Medial Abdomen 150 150 125 Urine 1455 1675 1040 Stool 120 Other: Voiding Method Indwelling Catheter Indwelling Catheter Indwelling Catheter # Voids 1 ABP, PAP, CO, CI - Last Documented Arterial Blood Pressure 159/93 Pulmonary Artery Pressure 4/4 Cardiac Output 4.5 Cardiac Index 2.5 - Exam - Constitutional General appearance: Present: no acute distress, obese, the patient is currently on 2 L of oxygen by nasal cannula - Respiratory Details: Lungs sounds clear bilaterally but diminished on the left side. Patient is extubated to 4 L about by nasal cannula, the patient had diminished breath on the left lung base along with dullness to percussion related to her large pleural effusion. Sternum stable clean and intact. - Cardiovascular Details: S1, S2 present. Regular rate and rhythm, sinus rhythm on telemetry. Sternum stable. Palpable peripheral pulses bilaterally. Generalized nonpitting edema present. . Antiembolism stockings, SCDs present. - Gastrointestinal Gastrointestinal Comment(s): Abdomen soft, nondistended. Hypoactive bowel sounds present. Right lower quadrant ileostomy present with green bile drainage. Wound VAC is also applied to the open incision on the mid anterior abdominal wound. No direct tenderness. No bowel sounds at this point in time. - Genitourinary Genitourinary Comment(s): Almaguer present draining clear, yellow urine. Output is 50 mL an hour as the patient was diuresed and the patient is producing good urine output for now. - Integumentary Integumentary Comment(s): Skin is warm and dry. Anterior chest incision well approximated with dry intact dressing present. Left lower semi-EVH site well approximated. Midline abdominal incision clean, and wound VAC was applied. - Neurologic Neurologic Comment(s): Awake and alert and following commands and answering questions appropriately. - Musculoskeletal Musculoskeletal: Present: generalized weakness - Labs CBC & Chem 7: 12/25/17 04:10 12/25/17 04:10 Labs: Abnormal Lab Results - Last 24 Hours (Table) 12/24/17 12/24/17 12/24/17 Range/Units 13:07 17:28 19:01 WBC (3.8-10.6) k/uL RBC (3.80-5.40) m/uL Hgb (11.4-16.0) gm/dL Hct (34.0-46.0) % MCHC (31.0-37.0) g/dL RDW (11.5-15.5) % Neutrophils # (1.3-7.7) k/uL Lymphocytes # (1.0-4.8) k/uL Sodium (137-145) mmol/L Chloride (98-107) mmol/L BUN (7-17) mg/dL Glucose (74-99) mg/dL POC Glucose (mg/dL) 171 H 168 H 170 H (75-99) mg/dL Calcium (8.4-10.2) mg/dL Alkaline Phosphatase (38-126) U/L Total Protein (6.3-8.2) g/dL Albumin (3.5-5.0) g/dL 12/25/17 12/25/17 12/25/17 Range/Units 04:10 04:10 11:18 WBC 14.7 H (3.8-10.6) k/uL RBC 3.20 L (3.80-5.40) m/uL Hgb 8.5 L (11.4-16.0) gm/dL Hct 27.7 L (34.0-46.0) % MCHC 30.8 L (31.0-37.0) g/dL RDW 16.2 H (11.5-15.5) % Neutrophils # 12.8 H (1.3-7.7) k/uL Lymphocytes # 0.7 L (1.0-4.8) k/uL Sodium 136 L (137-145) mmol/L Chloride 108 H (98-107) mmol/L BUN 23 H (7-17) mg/dL Glucose 165 H (74-99) mg/dL POC Glucose (mg/dL) 191 H (75-99) mg/dL Calcium 7.8 L (8.4-10.2) mg/dL Alkaline Phosphatase 210 H (38-126) U/L Total Protein 4.3 L (6.3-8.2) g/dL Albumin 1.9 L (3.5-5.0) g/dL Assessment and Plan Assessment: #1. Multivessel coronary artery disease, involving left main coronary artery. And is awaiting coronary artery bypass grafting and surgery was done 12/11/2017 18 and the patient is postop day # 12 #2. Acute perforated viscus with necrosis of the transverse and right colon and the patient is status post right colectomy, transverse colectomy and takedown of splenic flexure with diabetic ileostomy. Estimated blood loss was 100 mL and the patient is postop day #5 #3. Acute hypoxic respiratory failure secondary to above. Extubated to a 2 L of oxygen by nasal cannula and the patient has a moderate-sized left-sided pleural effusion, which I plan to Drain #4. Acute hypotension, recovered and the patient is currently on no pressors #5. Atrial fibrillation, and expected outcome of surgery , back to sinus #6. Peripheral vascular disease #7. History of nicotine dependence, currently in remission, quit 10 years ago, carries [id number] smoking history #8. Hypothyroidism #9. Diabetes mellitus type 2 #10. Chronic low back pain #11. Depression #12 obesity with a BMI of 34.3 #13 leukocytosis #14 anemia and expected outcome of surgery, #15 hyperlipidemia #16 leukocytosis, improving and the white cell count is down to 14.7 #17 non-anion gap metabolic acidosis, improving and the patient is receiving acetate through TPN and the bicarb level is up to 20 #18 left-sided pleural effusion as evident on today's chest x-ray #19 severe hypoproteinemia and hyperlipidemia and the patient was placed on TPN Recommendation: Continue present supportive care measures, will likely recommend a left-sided thoracentesis in the next 24 hours. We'll repeat chest x -ray in the morning, and if there is no improvement we'll likely recommend thoracentesis. Time with Patient: Less than 30
--- NOTE | 2017-12-25 12:26 | US ---
EXAMINATION TYPE: US chest DATE OF EXAM: 12/25/2017 COMPARISON: NONE CLINICAL HISTORY: Markings for thoracentesis by pulmonary staff. Left pleural effusion TECHNIQUE: Targeted ultrasound of the posterior lower bilateral hemithoraces EXAM MEASUREMENTS: Right Pleural Effusion pocket size: 4.2 cm Right skin surface to fluid distance: 3.4 cm Left Pleural Effusion pocket size: 8.3 cm Left skin surface to fluid distance: 3.8 cm Right side marked for possible thoracentesis outside the dept. Left side marked for possible thoracentesis outside the dept. Pulmonologists are able to review the images in the patient?s EMR. IMPRESSIONS: Pleural effusions as noted.
[2017-12-25] MEDS: amLODIPine 5 MG TAB PO SCH (13:32)
[2017-12-25] MEDS ORDERED: LIDOCAINE 1% INJ 10MG/ML (20 ML MDV) ONE (13:50)
[2017-12-25] MEDS ORDERED: IV FLUID CONTINUATION 1,000 ML IV ONE (14:06)
[2017-12-25] MEDS ORDERED: LIDOCAINE 1% INJ 10MG/ML (20 ML MDV) SQ ONE (14:21)
--- NOTE | 2017-12-25 14:29 | P.PN ---
Subjective Progress Note Date: 12/25/17 This is 72-year-old female status post bypass surgery for left main disease. Patient has been having abdominal discomfort. She seemed to have colitis. She is having diarrhea. No complaints of any chest pain. He patient is maintaining sinus rhythm. Also having some problems with urination, urinary retention. From [facility] standpoint we'll continue current medical therapy 12/17/2017: The patient continues to be agitated. He still complains of back pain and leg pain. Computed tomography scan of the abdomen showed evidence of colitis. She is not having any diarrhea. Patient is being treated for UTI and colitis with antibiotics. Her echocardiogram showed preserved LV function without any significant valvular abnormalities. We'll continue with current management. Prognosis is guarded. 12/18/2017: The patient is still complaining of abdominal pain and generalized body pain. Hemodynamically stable. Continues to have diarrhea. Blood pressure is stable. No arrhythmias are noted. Patient may need a better pain management. From [facility] standpoint we'll continue current medical therapy. 12/19/2017: Patient is feeling better today. She is in less pain. Her diarrhea is improved. Patient in the chair seemed to be cheerful. Remains in sinus rhythm. No arrhythmias are detected. Her bicarbonate is corrected. There is a possibility that patient may be moving to telemetry. 12/20/2017: This patient apparently developed abdominal pain last night. Chest x-ray this morning showed evidence of pneumoperitoneum. Subsequent CAT scan also showed moderate pneumoperitoneum. It was felt was secondary to a ruptured viscus probably duodenum. Patient doesn't have any other complaints. Appear to be in sinus rhythm. Patient is taken to the operating room by the surgeon for exploratory laparotomy. 12/25/2017: This patient is status post aortic coronary bypass surgery. 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 Patient is clinically doing well. Chest x-ray showed a pleural effusion on the left side. Dr. Rod is going to pleurocentesis probably within next 24 hours. Cardiac was patient is maintaining sinus rhythm. Blood pressure is running high. I'm going to add Norvasc 5 mg. Rest of the medication to be continued Objective - Vital Signs Vital signs: Vital Signs Temp 98.5 F 12/25/17 12:00 Pulse 91 12/25/17 13:00 Resp 23 12/25/17 13:00 BP 158/81 12/25/17 13:00 Pulse Ox 98 12/25/17 13:00 Intake & Output 12/24/17 12/25/17 12/25/17 18:59 06:59 18:59 Intake Total 2098 927 1114 Output Total 1775 1825 2020 Balance 876 -106 -785 Weight 104 kg 105 kg Intake: IV 678 927 541 Amino Acid 4.25%-D10w+ 600 Lytes*E* 1,000 ml @ 65 mls/hr IV .BY DURATION WILLIAM Rx#:[id number] Amino Acid 5%-D15w+Lytes* 660 420 E* 1,000 ml @ 60 mls/hr IV .BY DURATION WILLIAM Rx#: [id number] Fat Emulsion 20% 250 ml 42 231 In Empty Bag 1 bag @ 21 mls/hr IV DAILY@1600 WILLIAM Rx#:[id number] Meropenem 2 gm In Sodium 100 Chloride 0.9% 100 ml @ 200 mls/hr IVPB Q12HR WILLIAM Rx#:[id number] Pressure Bags 36 36 21 Intake, IV Titration 1420 573 Amount Amino Acid 5%-D15w+Lytes* 1000 273 E* 1,000 ml @ 60 mls/hr IV .BY DURATION WILLIAM Rx#: [id number] Anidulafungin 100 mg In 100 Sodium Chloride 0.9% 100 ml @ 84 mls/hr IVPB DAILY WILLIAM Rx#:[id number] Meropenem 2 gm In Sodium 100 Chloride 0.9% 100 ml @ 200 mls/hr IVPB Q12HR WILLIAM Rx#:[id number] Mvi, Adult No.4 with Vit 120 K 10 ml Trace (Conc-1Ml/ Dose) 1 ml In Amino Acid 5%-D15w+Lytes*E* 1,000 ml @ 60 mls/hr IV .BY DURATION WILLIAM Rx#: [id number] Potassium Chloride 10 meq 200 In Water For Injection 1 100ml.bag @ 100 mls/hr IVPB Q1H WILLIAM Rx#: [id number] Potassium Chloride 10 meq 200 In Water For Injection 1 100ml.bag @ 100 mls/hr IVPB Q1H WILLIAM Rx#: [id number] Output: Gastric Drainage 50 500 Drainage 150 150 125 Medial Abdomen 150 150 125 Urine 1455 1675 1295 Stool 120 100 Other: Voiding Method Indwelling Catheter Indwelling Catheter Indwelling Catheter # Voids 1 ABP, PAP, CO, CI - Last Documented Arterial Blood Pressure 159/93 Pulmonary Artery Pressure 4/4 Cardiac Output 4.5 Cardiac Index 2.5 - Exam Physical exam. Not available. Patient was in the Skin and subsequently taken to the operating room 12/25/2017: Patient is sitting in the chair. Complaints of tach and pain in the incision area. Heart is regular. Lungs show diminished breath sounds especially on the left side. Abdomen is postsurgical. - Labs CBC & Chem 7: 12/25/17 04:10 12/25/17 04:10 Labs: Abnormal Lab Results - Last 24 Hours (Table) 12/24/17 12/24/17 12/25/17 Range/Units 17:28 19:01 04:10 WBC (3.8-10.6) k/uL RBC (3.80-5.40) m/uL Hgb (11.4-16.0) gm/dL Hct (34.0-46.0) % MCHC (31.0-37.0) g/dL RDW (11.5-15.5) % Neutrophils # (1.3-7.7) k/uL Lymphocytes # (1.0-4.8) k/uL Sodium 136 L (137-145) mmol/L Chloride 108 H (98-107) mmol/L BUN 23 H (7-17) mg/dL Glucose 165 H (74-99) mg/dL POC Glucose (mg/dL) 168 H 170 H (75-99) mg/dL Calcium 7.8 L (8.4-10.2) mg/dL Alkaline Phosphatase 210 H (38-126) U/L Total Protein 4.3 L (6.3-8.2) g/dL Albumin 1.9 L (3.5-5.0) g/dL 12/25/17 12/25/17 Range/Units 04:10 11:18 WBC 14.7 H (3.8-10.6) k/uL RBC 3.20 L (3.80-5.40) m/uL Hgb 8.5 L (11.4-16.0) gm/dL Hct 27.7 L (34.0-46.0) % MCHC 30.8 L (31.0-37.0) g/dL RDW 16.2 H (11.5-15.5) % Neutrophils # 12.8 H (1.3-7.7) k/uL Lymphocytes # 0.7 L (1.0-4.8) k/uL Sodium (137-145) mmol/L Chloride (98-107) mmol/L BUN (7-17) mg/dL Glucose (74-99) mg/dL POC Glucose (mg/dL) 191 H (75-99) mg/dL Calcium (8.4-10.2) mg/dL Alkaline Phosphatase (38-126) U/L Total Protein (6.3-8.2) g/dL Albumin (3.5-5.0) g/dL Assessment and Plan (1) Colitis Current Visit: Yes Status: Acute Code(s): K52.9 - NONINFECTIVE GASTROENTERITIS AND COLITIS, UNSPECIFIED SNOMED Code(s): 03561088 (2) Diarrhea in adult patient Current Visit: Yes Status: Acute Code(s): R19.7 - DIARRHEA, UNSPECIFIED SNOMED Code(s): 58497302 (3) Urinary tract infection Current Visit: Yes Status: Acute Code(s): N39.0 - URINARY TRACT INFECTION, SITE NOT SPECIFIED SNOMED Code(s): 12760683 (4) 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 Patient may have thoracocentesis within 24 hours. I'm going to add Norvasc to the current regimen for blood pressure control. Further recommendations depend upon the clinical course
[2017-12-25 17:15] LABS: Glucose,Whole Blood 176 mg/dL (75-99)
[2017-12-25] MEDS: FAT EMULSION 20% 250 ML in EMPTY BAG 1 BAG IV SCH (17:50)
--- NOTE | 2017-12-25 20:24 | P.PN ---
Subjective Progress Note Date: 12/25/17 This is a 72-year-old female patient who initially underwent a stress test that was positive followed by a heart catheterization that showed significant disease in the left main, mid LAD and ostial circumflex. She then underwent an urgent CABG 4 vessel on December 11. Patient seems to have been recovering well until yesterday. She was noted to develop a fever of 102.6, lactic acid was 2.3 and also liver enzymes elevated. She had been treated for E. coli urinary tract infection that was present on admission with Rocephin. Her antibiotics were then changed to Zosyn and vancomycin. Patient also had some hypersomnolence and confusion yesterday for which her narcotics were changed from oxycodone which she chronically takes for back pain and switched to Jet every 6, IV Tylenol and Toradol and patient continues to have significant back pain. She denies chest pain, shortness of breath, nausea or vomiting. She denies any diarrhea. She does have decreased appetite which is been going on since admission. She states that she feels better from yesterday and recognizes that she was lethargic yesterday. Today. she has been up for shower and has had a bowel movement. Patient had low urine output yesterday and received a dose of Lasix. She had a CAT scan of the brain that showed cerebral atrophy and chronic small vessel ischemia. No acute intracranial process. She states that she was coughing a lot this morning but no denies shortness of breath. Chest x-ray from this morning shows minimal pulmonary vascular congestion cannot be exaggerated by low lung volumes in addition to persistent unchanged retrocardiac airspace disease, likely atelectasis and trace pleural effusions. Patient was using incentive spirometer 2000 mL she yesterday. She has had no significant wound concerns. Chest tubes and Almaguer are out. Patient denies any burning or pain with urination. . Now back in the intensive care unit she's had some abdominal pain and with worsening of her status including lactic acidosis to was concerns to ischemic colitis. She has been seen by surgery is being closely followed. She is on antimicrobial therapy with piperacillin tazobactam and vancomycin which would give coverage for ischemic colitis. Severe back pain is modestly controlled at this time. Patient is given a fluid bolus it appears that her lactic acid has dropped from 3.5-1.0. Fluids were also changed from lactated Ringer's to D5/ 0.45% NaCl with 20 mEq of KCl 12/18/2017 patient is sitting up in the chair looking considerably better. She has some clear liquids that she is able to ingest. Abdominal pain is improved. She is not having further fever or hypotension. Lactic acid is improved 12/21/2017 the patient had a significant change of her status and was found evidence of a perforated viscus and consequently the operating room yesterdaywhere exploratory laparotomy was performed, there is evidence of necrosis the transverse colon and of the right colon and consequently colectomy was performed in ileostomy was placed. Postoperatively the patient is now having some improvement. Vasopressor therapy has been held. Oxygenation is stable and she has no new complication. 12/22/2017 patient has had some improvement today that she is extubated and is stable after this has occurred. She is in no vasopressor therapy, has adequate oxygenation and urinary output. He is receiving some peripheral nutrition while her gastrointestinal function recovers. December 24 2017 patient continues to have improvement. Doing well extubated and off vasopressor therapy. Is awaiting recovery of her gastrointestinal function. Abdominal pain is minimal. She's been up in the chair without difficulties and is doing well with her incentive spirometry. 12/25/2017 and further improvement. She's been able to maintain her extubated status and other than complaints of ongoing severe back pain that has been a long-standing problem continued to have improvement. Initially her pain is worse today than yesterday. Primary service is trying to reduce her medications. Objective - Vital Signs Vital signs: Vital Signs Temp 98.9 F 12/25/17 16:00 Pulse 78 12/25/17 19:45 Resp 24 12/25/17 19:00 BP 134/76 12/25/17 19:00 Pulse Ox 97 12/25/17 19:00 Intake & Output 12/25/17 12/25/17 12/26/17 06:59 18:59 06:59 Intake Total 927 1366 60 Output Total 1825 2390 45 Balance -898 -1024 15 Weight 105 kg Intake: IV 927 793 60 Amino Acid 5%-D15w+Lytes* 660 660 60 E* 1,000 ml @ 60 mls/hr IV .BY DURATION [facility] Rx#: [id number] Fat Emulsion 20% 250 ml 231 In Empty Bag 1 bag @ 21 mls/hr IV DAILY@1600 [facility] Rx#:[id number] Meropenem 2 gm In Sodium 100 Chloride 0.9% 100 ml @ 200 mls/hr IVPB Q12HR [facility] Rx#:[id number] Pressure Bags 36 33 Intake, IV Titration 573 Amount Amino Acid 5%-D15w+Lytes* 273 E* 1,000 ml @ 60 mls/hr IV .BY DURATION [facility] Rx#: [id number] Anidulafungin 100 mg In 100 Sodium Chloride 0.9% 100 ml @ 84 mls/hr IVPB DAILY [facility] Rx#:[id number] Potassium Chloride 10 meq 200 In Water For Injection 1 100ml.bag @ 100 mls/hr IVPB Q1H [facility] Rx#: [id number] Output: Gastric Drainage 500 Drainage 150 125 Medial Abdomen 150 125 Urine 1675 1665 45 Stool 100 Other: Voiding Method Indwelling Catheter Indwelling Catheter ABP, PAP, CO, CI - Last Documented Arterial Blood Pressure 159/93 Pulmonary Artery Pressure 4/4 Cardiac Output 4.5 Cardiac Index 2.5 - Exam Gen: This is a 72-year-old female. supine she is extubated and comfortable HEENT: Head is atraumatic, normocephalic. Pupils equal, round. Sclerae is anicteric. Mucous members of the mouth are moist. NECK: Supple. No JVD. No lymphadenopathy. No thyromegaly. LUNGS: Clear to auscultation. No wheezes or rhonchi. No intercostal retractions. HEART: Regular rate and rhythm. No murmur. Sternal wound is intact. No significant drainage, erythema. ABDOMEN: recent surgery ileostomy in place large amount of bilious material is noted. Bowel sounds are quiet. EXTREMITIES: No pedal edema. Wound and left lower extremity shows no signs of infection. No drainage, significant erythema or edema. NEUROLOGICAL: Patient is awake alert and interactive Skin the surgical site the chest wall is intact without erythema crepitance or fluctuance vein harvest site is intact.abdominal incision has serous drainage. - Labs CBC & Chem 7: 12/25/17 04:10 12/25/17 04:10 Labs: Abnormal Lab Results - Last 24 Hours (Table) 12/25/17 12/25/17 12/25/17 Range/Units 04:10 04:10 11:18 WBC 14.7 H (3.8-10.6) k/uL RBC 3.20 L (3.80-5.40) m/uL Hgb 8.5 L (11.4-16.0) gm/dL Hct 27.7 L (34.0-46.0) % MCHC 30.8 L (31.0-37.0) g/dL RDW 16.2 H (11.5-15.5) % Neutrophils # 12.8 H (1.3-7.7) k/uL Lymphocytes # 0.7 L (1.0-4.8) k/uL Sodium 136 L (137-145) mmol/L Chloride 108 H (98-107) mmol/L BUN 23 H (7-17) mg/dL Glucose 165 H (74-99) mg/dL POC Glucose (mg/dL) 191 H (75-99) mg/dL Calcium 7.8 L (8.4-10.2) mg/dL Alkaline Phosphatase 210 H (38-126) U/L Total Protein 4.3 L (6.3-8.2) g/dL Albumin 1.9 L (3.5-5.0) g/dL 12/25/17 Range/Units 17:14 WBC (3.8-10.6) k/uL RBC (3.80-5.40) m/uL Hgb (11.4-16.0) gm/dL Hct (34.0-46.0) % MCHC (31.0-37.0) g/dL RDW (11.5-15.5) % Neutrophils # (1.3-7.7) k/uL Lymphocytes # (1.0-4.8) k/uL Sodium (137-145) mmol/L Chloride (98-107) mmol/L BUN (7-17) mg/dL Glucose (74-99) mg/dL POC Glucose (mg/dL) 176 H (75-99) mg/dL Calcium (8.4-10.2) mg/dL Alkaline Phosphatase (38-126) U/L Total Protein (6.3-8.2) g/dL Albumin (3.5-5.0) g/dL Laboratory Results WBC 14.7 k/uL (3.8-10.6) H 12/25/17 04:10 RBC 3.20 m/uL (3.80-5.40) L 12/25/17 04:10 Hgb 8.5 gm/dL (11.4-16.0) L 12/25/17 04:10 Hct 27.7 % (34.0-46.0) L 12/25/17 04:10 MCV 86.4 fL (80.0-100.0) 12/25/17 04:10 MCH 26.6 pg (25.0-35.0) 12/25/17 04:10 MCHC 30.8 g/dL (31.0-37.0) L 12/25/17 04:10 RDW 16.2 % (11.5-15.5) H 12/25/17 04:10 Plt Count 402 k/uL (150-450) 12/25/17 04:10 Neutrophils % 87 % 12/25/17 04:10 Neutrophils % (Manual) 75 % 12/20/17 04:30 Band Neutrophils % 7 % 12/20/17 04:30 Lymphocytes % 5 % 12/25/17 04:10 Lymphocytes % (Manual) 7 % 12/20/17 04:30 Monocytes % 4 % 12/25/17 04:10 Monocytes % (Manual) 5 % 12/20/17 04:30 Eosinophils % 2 % 12/25/17 04:10 Eosinophils % (Manual) 2 % 12/20/17 04:30 Basophils % 0 % 12/25/17 04:10 Metamyelocytes % 3 % 12/20/17 04:30 Myelocytes % 3 % 12/20/17 04:30 Neutrophils # 12.8 k/uL (1.3-7.7) H 12/25/17 04:10 Neutrophils # (Manual) 11.70 k/uL (1.3-7.7) H 12/20/17 04:30 Lymphocytes # 0.7 k/uL (1.0-4.8) L 12/25/17 04:10 Lymphocytes # (Manual) 1.00 k/uL (1.0-4.8) 12/20/17 04:30 Monocytes # 0.6 k/uL (0-1.0) 12/25/17 04:10 Monocytes # (Manual) 0.72 k/uL (0-1.0) 12/20/17 04:30 Eosinophils # 0.4 k/uL (0-0.7) 12/25/17 04:10 Eosinophils # (Manual) 0.29 k/uL (0-0.7) 12/20/17 04:30 Basophils # 0.0 k/uL (0-0.2) 12/25/17 04:10 Metamyelocytes # (Man) 0.43 k/uL (0) H 12/20/17 04:30 Myelocytes # (Manual) 0.43 k/uL (0) H 12/20/17 04:30 Nucleated RBCs 0 /100 WBC (0-0) 12/20/17 04:30 Manual Slide Review Performed 12/22/17 04:23 Toxic Granulation Present 12/22/17 04:23 Large Platelets Present 12/18/17 04:30 RBC Morphology Normal 12/11/17 16:55 Polychromasia Present 12/20/17 04:30 Hypochromasia Slight 12/25/17 04:10 Poikilocytosis Slight 12/25/17 04:10 Poikilocytosis (manual Present 12/18/17 04:30 Anisocytosis Slight 12/25/17 04:10 PT 9.9 sec (9.0-12.0) 12/25/17 08:48 INR 1.0 (<1.2) 12/25/17 08:48 APTT 49.0 sec (22.0-30.0) H 12/19/17 04:14 Sample Site langley 12/22/17 10:36 ABG pH 7.42 (7.35-7.45) 12/22/17 10:36 ABG pCO2 26 mmHg (35-45) L 12/22/17 10:36 ABG pO2 100 mmHg (83-108) 12/22/17 10:36 ABG HCO3 17 mmol/L (21-25) L 12/22/17 10:36 ABG Total CO2 18 mmol/L (19-24) L 12/22/17 10:36 ABG O2 Saturation 98.3 % (94-97) H 12/22/17 10:36 ABG Base Excess -7.4 mmol/L 12/22/17 10:36 ABG Hematocrit 20 % (34.0-46.0) L* 12/11/17 12:13 Juventino Test Yes 12/22/17 04:10 ABG Sodium 136 mmol/L (135-146) 12/11/17 12:13 ABG Potassium 4.4 mmol/L (3.4-4.5) 12/11/17 12:13 ABG Ionized Calcium 4.2 mg/dL (4.5-5.3) L 12/11/17 12:13 ABG Glucose 204 mg/dL (75-99) H 12/11/17 12:13 ABG Lactic Acid 0.9 mmol/L (0.5-1.6) 12/21/17 04:30 Hemoglobin 6.4 gm/dL (11.4-16.0) L* 12/11/17 12:13 FiO2 40 % 12/22/17 10:36 Sodium 136 mmol/L (137-145) L 12/25/17 04:10 Potassium 3.9 mmol/L (3.5-5.1) 12/25/17 04:10 Chloride 108 mmol/L (98-107) H 12/25/17 04:10 Carbon Dioxide 23 mmol/L (22-30) 12/25/17 04:10 Anion Gap 5 mmol/L 12/25/17 04:10 BUN 23 mg/dL (7-17) H 12/25/17 04:10 Creatinine 0.60 mg/dL (0.52-1.04) 12/25/17 04:10 Est GFR (CKD-EPI)AfAm >90 (>60 ml/min/1.73 sqM) 12/25/17 04:10 Est GFR (CKD-EPI)NonAf >90 (>60 ml/min/1.73 sqM) 12/25/17 04:10 Glucose 165 mg/dL (74-99) H 12/25/17 04:10 POC Glucose (mg/dL) 176 mg/dL (75-99) H 12/25/17 17:14 POC Glu Valve Seater Operator ID Bobo Corona 12/25/17 17:[address] Glu mg/dL 186 12/08/17 06:55 Hemoglobin A1c 8.1 % (4.0-6.0) H 12/08/17 06:55 Lactic Ac Sepsis Rflx Y 12/15/17 10:17 Plasma Lactic Acid [place] 0.7 mmol/L (0.7-2.0) 12/22/17 09:15 Calcium 7.8 mg/dL (8.4-10.2) L 12/25/17 04:10 Ionized Calcium Adiel 5.0 mg/dL (4.5-5.3) 12/24/17 04:31 Phosphorus 2.8 mg/dL (2.5-4.5) 12/25/17 04:10 Magnesium 2.1 mg/dL (1.6-2.3) 12/25/17 04:10 Total Bilirubin 0.5 mg/dL (0.2-1.3) 12/25/17 04:10 AST 23 U/L (14-36) 12/25/17 04:10 ALT 30 U/L (9-52) 12/25/17 04:10 Alkaline Phosphatase 210 U/L (38-126) H 12/25/17 04:10 Total Protein 4.3 g/dL (6.3-8.2) L 12/25/17 04:10 Albumin 1.9 g/dL (3.5-5.0) L 12/25/17 04:10 Prealbumin <5.0 mg/dL (18.0-42.0) L 12/22/17 04:23 Triglycerides 171 mg/dL (<150) H 12/23/17 04:32 Cholesterol 129 mg/dL (<200) 12/08/17 06:55 LDL Cholesterol, Calc 45 mg/dL (0-99) 12/08/17 06:55 HDL Cholesterol 66 mg/dL (40-60) H 12/08/17 06:55 Amylase <30 U/L (30-110) L 12/14/17 15:37 Lipase 25 U/L (23-300) 12/14/17 15:37 TSH 2.940 mIU/L (0.465-4.680) 12/08/17 06:55 Arterial Blood Potassium 4.4 mmol/L (3.4-4.5) 12/11/17 12:13 Arterial Blood Glucose 204 mg/dL (75-99) H 12/11/17 12:13 Urine Color Yellow 12/08/17 12:00 Urine Appearance Cloudy (Clear) H 12/08/17 12:00 Urine pH 7.5 (5.0-8.0) 12/08/17 12:00 Ur Specific [place] 1.044 (1.001-1.035) H 12/08/17 12:00 Urine Protein Negative (Negative) 12/08/17 12:00 Urine Glucose (UA) Negative (Negative) 12/08/17 12:00 Urine Ketones Negative (Negative) 12/08/17 12:00 Urine Blood Moderate (Negative) H 12/08/17 12:00 Urine Nitrite Negative (Negative) 12/08/17 12:00 Urine Bilirubin Negative (Negative) 12/08/17 12:00 Urine Urobilinogen <2.0 mg/dL (<2.0) 12/08/17 12:00 Ur Leukocyte Esterase Small (Negative) H 12/08/17 12:00 Urine RBC 2 /hpf (0-5) 12/08/17 12:00 Urine WBC 3 /hpf (0-5) 12/08/17 12:00 Ur Squamous Epith Cells 1 /hpf (0-4) 12/08/17 12:00 Urine Bacteria Occasional /hpf (None) H 12/08/17 12:00 Urine Mucus Rare /hpf (None) H 12/08/17 12:00 Stool Occult Blood Positive (Negative) H 12/16/17 04:45 Stl Cryptosporidium Ag Negative (Negative) 12/15/17 14:15 Stool Giardia Source Stool 12/15/17 14:15 Stl Giardia Antigen Negative (Negative) 12/15/17 14:15 Vancomycin Trough 17.7 ug/mL 12/16/17 08:33 C. difficile (EIA) Intrp Negative (Negative) 12/16/17 10:35 Hepatitis A IgM Ab Non-Reactive (Non-Reactive) 12/08/17 06:55 Hep Bs Antigen Non-Reactive (Non-Reactive) 12/08/17 06:55 Hep B Core IgM Ab Non-Reactive (Non-Reactive) 12/08/17 06:55 Hep C IgG Ab Non-Reactive (Non-Reactive) 12/08/17 06:55 Blood Type B Positive 12/20/17 11:26 Blood Type Confirm B Positive 12/10/17 10:21 Blood Type Recheck No 12/20/17 11:26 Antibody Screen NEGATIVE 12/20/17 11:26 Crossmatch See Detail 12/20/17 11:26 Transfuse Platelets 12/11/17 12/10/17 05:38 Spec Expiration Date 12/23/2017 - 2326 12/20/17 11:26 Microbiology 12/13/17 22:12 Blood Blood Culture - Final No Growth after 144 hours 12/15/17 14:15 Stool Stool Culture - Final 12/12/17 17:00 Urine,Catheterized Urine Culture - Final 12/08/17 12:00 Urine,Clean Catch Urine Culture - Final Escherichia coli 12/08/17 12:00 Nasal Swab Nasal Screen MRSA/MSSA - Final Assessment and Plan (1) E. coli sepsis Narrative/Plan: 72 year old woman with history of CAD failed stress test now s/p CABG and was progressing but developed fever to 102. Found to have UTI and is now improving. He doesn't history of chronic back pain been of some contention over the last day because of excess sedation from her pain medications. She currently is on minimal premedication with orders to ensure that she is at least sitting up and getting some ambulation. Her shortness of breath is definitely improved her chest is without significant pain. She does have a history of urinary tract infections in the past, since the Almaguer is out she has some minimal discomfort but does not feel miserable. She's had difficulty with incontinence since the Almaguer has been removed, bladder scan was performed with only 200 mL noted. She does have a urine culture with Escherichia coli that is resistant to quinolone therapy. With her fever the antibiotic therapy was enhance Zosyn and vancomycin. Sternal wound does not appear to be infected at the moment does not seem to have pneumonia. 12/15/2017 reveals the patient to have a change of her status in that she developed abdominal pain as well as worsening of her status. This concerns to ischemic colitis and she was moved to the intensive care unit. She's been seen by general surgery. It is being monitored. She had worsening lactic acidosis is now showing improvement after fluid challenge. She is not having chest pain and her shortness of breath continues to improve. Blood cultures are negative but urine culture did have E. coli years that she does have significant underlying infection in the urinary system. Treatment has been with Zosyn which should also cover ischemic colitis at that is occurring at this time. There are concerns to bowel compromise possibly for microemboli in the postoperative time frame. With this heparin has been started. Cultures are process and she'll be monitored. Her significant leukocytosis showing some slight improvement. 12/18/2017 the patient is having some improvement. She is not having as much pain and is able to tolerate some oral intake with clear liquids and has had some flatus. Abdominal pain is steadily improved and overall feels better. Leukocytosis is trending to improvement. X-ray shows evidence of some worsening of the hilar edema.there are no new positive cultures on the E. coli has been isolated. Antibiotic therapy with Zosyn to complete 7 days of therapy for her E. coli urinary tract infection. Surgery is following for the transient ischemic colitis she's been anticoagulated, and final plans are being developed as far as her long-term anticoagulation. The lactic acidosis completely resolved. December 21 2017 after the patient had a major change in her statusand was found evidence of ischemic colitis in the transverse and right colon and underwent colectomy and ileostomy placement. She's now having some improvement in her vasopressor therapy has now been put on hold with resolution of the hypotension. Patient seems to be comfortable. With her significant change of status antimicrobial therapy was migrated to meropenem and Eraxis pending culture results.she has a persistent leukocytosis related to the current sepsis which is showing some improvement. She did have profound anemia and was transfused and seems to be stable at this time. No Evidence of any new acute bleeding. 12/22/2017 the patient is now extubated and comfortable. Gastrointestinal function recovery is awaited and peripheral nutrition has been established. Leukocytosis is improving. She no longer is requiring vasopressor therapy. Seems responding well to meropenem and Eraxis and these will continue for now. Patient's family is present and course in therapy are discussed including the need for rehab after discharge. 12/24/2017 patient continued to show improvement. Doing well after her recent surgical intervention. Responding well to antimicrobial therapy with meropenem and Eraxis. We'll plan at least 10 days of antimicrobial therapy regarding her significant sepsis from the ischemic colitis and leak. The profound leukocytosis is improving diminishing to 19.2 from 29.4. Remains afebrile. 12/25/2017 patient remains without fever, her profound leukocytosis continues to decline in overall she's doing considerably better except for complaints of chronic back pain. She's had return of abdominal function and is tolerating her full liquid diet without difficulty. No nausea or emesis occurred. Is working with the primary service as far as her pain control given her history of chronic back pain and chronic narcotic use for this. She is on day 4 of 10 of antibiotic therapy with Merrem and Eraxis for the ischemic perforated colon. Status: Acute Code(s): A41.51 - SEPSIS DUE TO ESCHERICHIA COLI [E. COLI] SNOMED Code(s): 477701347 (2) Urinary tract infection Current Visit: Yes Status: Acute Code(s): N39.0 - URINARY TRACT INFECTION, SITE NOT SPECIFIED SNOMED Code(s): 31518501 (3) Coronary artery disease involving left main coronary artery Current Visit: Yes Status: Chronic Code(s): I25.10 - ATHSCL HEART DISEASE OF [place] CORONARY ARTERY W/O ANG PCTRS SNOMED Code(s): 524728658 (4) Fever Current Visit: Yes Status: Acute Code(s): R50.9 - FEVER, UNSPECIFIED SNOMED Code(s): 796958357
--- NOTE | 2017-12-25 22:00 | PN ---
PROGRESS NOTE DATE OF SERVICE: 12/25/2017 PRESENTING COMPLAINT: Status post CABG. INTERVAL HISTORY: Patient remains in the ICU, status post CABG, then had ischemic bowel; there was bowel perforation resulting in ostomy and a wound V.A.C. in place. NG tube remains in place. A PICC line was attempted but could not be placed. Patient remains n.p.o. Blood pressure is running high; hence blood pressure medication has been adjusted. It has been running greater than 150 today. Patient is putting out some dark stool through the ostomy bag. Abdominal wound V.A.C. is present. Patient is up in the chair. Ultrasound showed significant left-sided pleural effusion. Dr. Chavez is planning thoracentesis. Patient does feel weak, tired, rundown. REVIEW OF SYSTEMS: Done for constitutional, cardiovascular, GI, pulmonary; relevant findings as above. CURRENT MEDICATIONS: Reviewed. They include: 1. DuoNeb. 2. Norvasc. 3. Anidulafungin. 4. Lipitor. 5. Catapres patch. 6. Plavix. 7. TPN. 8. Lipids. 9. IV Lasix 20 q.12. 10.Hydralazine IV. 11.IV Synthroid. 12.IV meropenem. PHYSICAL EXAMINATION: Temperature 98.4, pulse 95, respiration 17, blood pressure 148/73, pulse ox 98% on 2 L. GENERAL APPEARANCE: Lying in bed, tired-appearing. EYES: Pupils equal. Conjunctivae normal. HEENT: External appearance of nose and ears normal. Oral cavity dry. NG tube in place. NECK: JVD unable to assess. Mass not palpable. RESPIRATORY: Effort increased. LUNGS: Decreased breath sounds. CARDIOVASCULAR: Heart sounds muffled. Some edema. ABDOMEN: Soft. Some tenderness is present. Dark stool in the ostomy bag. Wound V.A.C. in place. Liver and spleen not palpable. PSYCHIATRY: Alert and oriented x3. Mood and affect tired-appearing. INVESTIGATIONS: White count 14.7, hemoglobin 8.5, potassium 3.9, BUN 23, creatinine 0.60. Accu-Cheks are noted. Chest x-ray shows significant left-sided pleural effusion. ASSESSMENT: 1. Coronary artery disease, status post coronary bypass on 12/11/2017. 2. Acute ischemic bowel with perforation with right transverse colectomy and takedown of splenic flexure with resultant ostomy. 3. Wound V.A.C. in place. 4. Acute hypoxic respiratory failure, status post ventilator support. 5. Hypotensive shock from sepsis and septic shock, now recovered. Patient remains IV meropenem and antifungals. 6. Paroxysmal atrial fibrillation, currently in sinus rhythm. 7. Peripheral artery disease. 8. Hypothyroidism. 9. Diabetes mellitus, type 2. 10.Chronic low back pain from arthritis. 11.Depression not otherwise specified. 12.Obesity; body mass index 34.3. 13.Acute blood loss anemia, expected from surgery, and hospital-acquired from blood draws. 14.Hyperlipidemia. 15.Hypoalbuminemia as an acute phase reactant. 16.Left-sided pleural effusion, for thoracentesis. 17.Essential hypertension, well controlled; as of yesterday, now better controlled. Today systolic has come down into the 150s. PLAN: Continue current medication and treatment plan. The patient will have thoracentesis. Antibiotics are to continue. MMODL / IJN: [id number] /
[2017-12-25 23:36] LABS: Glucose,Whole Blood 184 mg/dL (75-99)
[2017-12-26] MEDS: hydrALAZINE HCL 20 MG/ML 1 ML VIAL IVP SCH ×4 (00:30→18:18)
[2017-12-26] MEDS: HEPARIN SODIUM,PORCINE 5,000 UNIT/ML 1 ML VIAL SQ SCH ×3 (00:30→16:13)
[2017-12-26] MEDS: INSULIN ASPART 100 UNIT/ML 1 ML 10 ML VIAL SQ SCH ×4 (00:30→17:50)
[2017-12-26] MEDS: HYDROmorphone 1 MG/ML 1 ML SYRINGE IVP PRN ×2 (00:30→07:37)
[2017-12-26] MEDS: 1: MVI, ADULT NO.4 WITH VIT K 10 ML, TRACE (CONC-1ML/DOSE) 1 ML in AMINO ACID 5%-D15W+LY IV SCH ×3 (00:31)
[2017-12-26 04:29] LABS: Anisocytosis Slight; Basophils % (A) 0 %; Eosinophils # (A) 0.3 k/uL (0-0.7); Eosinophils % (A) 2 %; HCT 24.6 % (34.0-46.0); HGB 7.8 gm/dL (11.4-16.0); Hypochromasia Slight; Lymphocytes # (A) 0.8 k/uL (1.0-4.8); Lymphocytes % (A) 6 %; MCH 27.3 pg (25.0-35.0); MCHC 31.6 g/dL (31.0-37.0); MCV 86.4 fL (80.0-100.0); Mean Platelet Volume 7.3; Monocytes # (A) 0.8 k/uL (0-1.0); Monocytes % (A) 5 %; Neutrophils # (A) 12.5 k/uL (1.3-7.7); Neutrophils % (A) 85 %; Platelet Count 389 k/uL (150-450); Poikilocytosis Slight; RBC 2.85 m/uL (3.80-5.40); WBC 14.7 k/uL (3.8-10.6)
[2017-12-26 04:34] LABS: Ionized Calcium 5.2 mg/dL (4.5-5.3)
[2017-12-26 04:43] LABS: ALT 34 U/L (9-52); AST 25 U/L (14-36); Albumin 1.9 g/dL (3.5-5.0); Alkaline Phosphatase 274 U/L (38-126); Anion Gap 5 mmol/L; Blood Urea Nitrogen 24 mg/dL (7-17); Calcium 7.8 mg/dL (8.4-10.2); Carbon Dioxide 24 mmol/L (22-30); Chloride 105 mmol/L (98-107); Glucose 158 mg/dL (74-99); Phosphorus 2.7 mg/dL (2.5-4.5); Potassium 3.6 mmol/L (3.5-5.1); Sodium 134 mmol/L (137-145); Total Bilirubin 0.4 mg/dL (0.2-1.3); Total Protein 4.3 g/dL (6.3-8.2)
[2017-12-26] MEDS: KETOROLAC 30 MG/ML 1 ML VIAL IVP SCH ×3 (05:22→18:19)
[2017-12-26] MEDS: METOPROLOL TARTRATE 5 MG/5 ML VIAL IVP SCH (05:22)
[2017-12-26 05:43] LABS: Glucose,Whole Blood 174 mg/dL (75-99)
[2017-12-26] MEDS ORDERED: POTASSIUM CHLORIDE 20 MEQ in WATER FOR INJECTION 1 100ML.BAG IVPB ONE (06:00)
[2017-12-26] MEDS: IPRATROPIUM-ALBUTEROL 3 ML NEB INHALATION SCH ×4 (06:58→19:35)
[2017-12-26 07:38] LABS: Glucose,Whole Blood 173 mg/dL (75-99)
--- NOTE | 2017-12-26 08:05 | P.PN ---
Subjective Progress Note Date: 12/26/17 Principal diagnosis: Coronary artery disease with critical left main disease. Preserved left ventricular function. Previous medical history of hypertension, hyperlipidemia , diabetes mellitus with preoperative hemoglobin A1c 8.1%, hypothyroid, chest granulomatous disease, peripheral vascular disease status post right fem-pop bypass, previous tobacco dependence with FEV1 109% of predicted in November 2016, recent fall in June 2017 with torn right rotator cuff, questionable DVT with previous Coumadin use greater than 2 years ago, syncopal episodes, paroxysmal atrial fibrillation, chronic low back pain, obesity, and depression. Preoperative E. coli urinary tract infection. POD #15 urgent quadruple coronary artery bypass grafting using the left internal mammary sequentially to the diagonal artery and to the left anterior descending artery, reverse saphenous vein graft from the aorta to the first obtuse marginal, reverse saphenous vein graft from the aorta to the third obtuse marginal artery. Bilateral pulmonary vein isolation using the AtriCure radiofrequency clamp. Exclusion of the left atrial appendage using a 35 mm AtriClip. Intraoperative transesophageal echocardiogram and epi-aortic scanning. Postoperative elevation in transaminases, an unexpected outcome, resolving. Leukocytosis, present preoperatively. Postoperative diarrhea, an unexpected outcome. Postoperative normocytic, normochromic anemia, and expected outcome of surgery secondary to cardiopulmonary bypass and hemodilution. Postoperative urinary retention, an unexpected outcome. Postoperative pneumoperitoneum, an unexpected outcome. Necrosis of the transverse colon, right colon, an unexpected outcome. Sepsis, septic shock, an unexpected outcome. POD #5 right colectomy, transverse colectomy, takedown splenic flexure, ileostomy performed by Dr. Montoya. Postoperative prolonged mechanical ventilation, need to be reintubated for second surgery, an unexpected outcome. Patient's currently sitting up in the recliner in the intensive care unit in no acute distress. Patient is much more alert this morning, had an extensive marques conversation about her narcotic use and pain control. Still has occasional episodes of hypertension, likely pain related, Catapres and Norvasc added by cardiology. Wound VAC in place. Ostomy with dark brown drainage. Was started on full liquid diet yesterday by general surgery, denies nausea, does state she has some abdominal pain but not severe. Attempt to place a PICC line yesterday was unsuccessful. Objective - Vital Signs Vital signs: Vital Signs Temp 98.4 F 12/26/17 04:00 Pulse 100 12/26/17 07:08 Resp 12 12/26/17 07:00 BP 138/70 12/26/17 07:00 Pulse Ox 98 12/26/17 07:00 Intake & Output 12/25/17 12/26/17 12/26/17 18:59 06:59 18:59 Intake Total 2377 984 84 Output Total 2390 1980 60 Balance -13 -996 24 Weight 99.4 kg Intake: IV 793 984 84 Amino Acid 5%-D15w+Lytes* 660 720 60 E* 1,000 ml @ 60 mls/hr IV .BY DURATION WILLIAM Rx#: [id number] Fat Emulsion 20% 250 ml 231 21 In Empty Bag 1 bag @ 21 mls/hr IV DAILY@1600 WILLIAM Rx#:[id number] Meropenem 2 gm In Sodium 100 Chloride 0.9% 100 ml @ 200 mls/hr IVPB Q12HR WILLIAM Rx#:[id number] Pressure Bags 33 33 3 Intake, IV Titration 1584 Amount Amino Acid 5%-D15w+Lytes* 273 E* 1,000 ml @ 60 mls/hr IV .BY DURATION WILLIAM Rx#: [id number] Anidulafungin 100 mg In 100 Sodium Chloride 0.9% 100 ml @ 84 mls/hr IVPB DAILY WILLIAM Rx#:[id number] Mvi, Adult No.4 with Vit 1011 K 10 ml Trace (Conc-1Ml/ Dose) 1 ml In Amino Acid 5%-D15w+Lytes*E* 1,000 ml @ 60 mls/hr IV .BY DURATION WILLIAM Rx#: [id number] Potassium Chloride 10 meq 200 In Water For Injection 1 100ml.bag @ 100 mls/hr IVPB Q1H WILLIAM Rx#: [id number] Output: Gastric Drainage 500 Drainage 125 Medial Abdomen 125 Urine 1665 1980 60 Stool 100 Other: Voiding Method Indwelling Catheter Indwelling Catheter ABP, PAP, CO, CI - Last Documented Arterial Blood Pressure 159/93 Pulmonary Artery Pressure 4/4 Cardiac Output 4.5 Cardiac Index 2.5 - Constitutional General appearance: Present: cooperative, no acute distress, obese - Respiratory Details: Lungs sounds diminished bilaterally, left side greater than right. Respirations even, nonlabored. Currently on 3 L nasal cannula with oxygen saturation 97%. Able to achieve 1000+ mL on her incentive spirometry. Strong cough. - Cardiovascular Details: S1, S2 present. Regular rate and rhythm, sinus rhythm on telemetry. Sternum stable. Palpable peripheral pulses bilaterally. Generalized nonpitting edema present but decreasing. Right internal jugular central line present. Antiembolism stockings, SCDs present. - Gastrointestinal Gastrointestinal Comment(s): Abdomen soft, nondistended. Hypoactive bowel sounds present. Right lower quadrant ileostomy present with dark brown liquid drainage, approximately 35 mL output overnight. NG tube present, clamped. - Genitourinary Genitourinary Comment(s): Almaguer present draining clear, yellow urine. Output is 150-175 mL per hour overnight, 1225 mL diuresis in the last 8 hours. - Neurologic Neurologic: Present: CNII-XII intact - Musculoskeletal Musculoskeletal: Present: generalized weakness, strength equal bilaterally - Psychiatric Psychiatric: Present: A&O x's 3, appropriate affect, intact judgment & insight - Allied health notes Allied health notes reviewed: nursing - Labs CBC & Chem 7: 12/26/17 04:15 12/26/17 04:15 Labs: Abnormal Lab Results - Last 24 Hours (Table) 12/25/17 12/25/17 12/25/17 Range/Units 11:18 17:14 23:33 WBC (3.8-10.6) k/uL RBC (3.80-5.40) m/uL Hgb (11.4-16.0) gm/dL Hct (34.0-46.0) % RDW (11.5-15.5) % Neutrophils # (1.3-7.7) k/uL Lymphocytes # (1.0-4.8) k/uL Sodium (137-145) mmol/L BUN (7-17) mg/dL Glucose (74-99) mg/dL POC Glucose (mg/dL) 191 H 176 H 184 H (75-99) mg/dL Calcium (8.4-10.2) mg/dL Alkaline Phosphatase (38-126) U/L Total Protein (6.3-8.2) g/dL Albumin (3.5-5.0) g/dL 12/26/17 12/26/17 12/26/17 Range/Units 04:15 04:15 05:41 WBC 14.7 H (3.8-10.6) k/uL RBC 2.85 L (3.80-5.40) m/uL Hgb 7.8 L (11.4-16.0) gm/dL Hct 24.6 L (34.0-46.0) % RDW 16.0 H (11.5-15.5) % Neutrophils # 12.5 H (1.3-7.7) k/uL Lymphocytes # 0.8 L (1.0-4.8) k/uL Sodium 134 L (137-145) mmol/L BUN 24 H (7-17) mg/dL Glucose 158 H (74-99) mg/dL POC Glucose (mg/dL) 174 H (75-99) mg/dL Calcium 7.8 L (8.4-10.2) mg/dL Alkaline Phosphatase 274 H (38-126) U/L Total Protein 4.3 L (6.3-8.2) g/dL Albumin 1.9 L (3.5-5.0) g/dL 12/26/17 Range/Units 07:36 WBC (3.8-10.6) k/uL RBC (3.80-5.40) m/uL Hgb (11.4-16.0) gm/dL Hct (34.0-46.0) % RDW (11.5-15.5) % Neutrophils # (1.3-7.7) k/uL Lymphocytes # (1.0-4.8) k/uL Sodium (137-145) mmol/L BUN (7-17) mg/dL Glucose (74-99) mg/dL POC Glucose (mg/dL) 173 H (75-99) mg/dL Calcium (8.4-10.2) mg/dL Alkaline Phosphatase (38-126) U/L Total Protein (6.3-8.2) g/dL Albumin (3.5-5.0) g/dL - Imaging and Cardiology Chest x-ray: image reviewed Assessment and Plan (1) Coronary artery disease involving left main coronary artery Current Visit: Yes Status: Chronic Code(s): I25.10 - ATHSCL HEART DISEASE OF [place] CORONARY ARTERY W/O ANG PCTRS SNOMED Code(s): 771504244 (2) Hypertension Current Visit: Yes Status: Chronic Code(s): I10 - ESSENTIAL (PRIMARY) HYPERTENSION SNOMED Code(s): 68163165 (3) Hyperlipidemia Current Visit: Yes Status: Chronic Code(s): E78.5 - HYPERLIPIDEMIA, UNSPECIFIED SNOMED Code(s): 00815544 (4) Diabetes Current Visit: Yes Status: Chronic Code(s): E11.9 - TYPE 2 DIABETES MELLITUS WITHOUT COMPLICATIONS SNOMED Code(s): 53167012 (5) Peripheral vascular disease Current Visit: Yes Status: Chronic Code(s): I73.9 - PERIPHERAL VASCULAR DISEASE, UNSPECIFIED SNOMED Code(s): 788745210 (6) Family history of heart disease Current Visit: Yes Status: Chronic Code(s): Z82.49 - FAMILY HX OF ISCHEM HEART DIS AND OTH DIS OF THE CIRC SYS SNOMED Code(s): 597414800 (7) Tobacco dependence in remission Current Visit: No Status: Resolved Code(s): F17.201 - NICOTINE DEPENDENCE, UNSPECIFIED, IN REMISSION SNOMED Code(s): 826924417 (8) Hypothyroid Current Visit: Yes Status: Chronic Code(s): E03.9 - HYPOTHYROIDISM, UNSPECIFIED SNOMED Code(s): 20471309 (9) Syncopal episodes Current Visit: No Status: Chronic Code(s): R55 - SYNCOPE AND COLLAPSE SNOMED Code(s): 504001975 (10) History of DVT (deep vein thrombosis) Current Visit: No Status: Resolved Code(s): Z86.718 - PERSONAL HISTORY OF OTHER VENOUS THROMBOSIS AND EMBOLISM SNOMED Code(s): 019653015 (11) History of atrial fibrillation Current Visit: No Status: Resolved Code(s): Z86.79 - PERSONAL HISTORY OF OTHER DISEASES OF THE CIRCULATORY SYSTEM SNOMED Code(s): 479431191 (12) Chronic low back pain Current Visit: Yes Status: Chronic Code(s): M54.5 - LOW BACK PAIN; G89.29 - OTHER CHRONIC PAIN SNOMED Code(s): 476795672 (13) Depression Current Visit: Yes Status: Chronic Code(s): F32.9 - MAJOR DEPRESSIVE DISORDER, SINGLE EPISODE, UNSPECIFIED SNOMED Code(s): 68391964 Plan: 1. Continue low-dose aspirin, statin, Plavix, hydralazine, beta sheree, Catapres, Norvasc. Will transition to oral medication from IV as patient tolerates. 2. Bronchodilators per pulmonology. 3. Continue amiodarone for A. fib prophylaxis. Will need anticoagulation once patient is more stable and all lines and tubes have been discontinued. 4. Continue meropenem, Eraxis for [address] Mccartney. 5. Discontinue NG tube per surgery. Patient may have full liquid diet per general surgery. 6. Discontinue PPN when able. Discontinue triple lumen central line once PPN is DC'd. 7. Keep Almaguer for strict accurate I and O's, urinary retention. 8. Left pleural effusion present. Likely left sided thoracentesis today per Dr. Chavez. 9. Monitor daily labs, chest x-rays. 10. GI prophylaxis with IV Protonix. DVT prophylaxis with subcu heparin, SCDs. 11. Pain control with current medication regimen. We will add back in home medication when patient able to swallow whole pills. 12. Insulin/diabetic management per Dr. Yousif. 13. Wound VAC per general surgery to abdominal incisions. Will change Monday, Monday, Monday. 14. More recommendations to follow based on patient's clinical course. Time with Patient: Greater than 30
[2017-12-26] MEDS: amLODIPine 5 MG TAB PO SCH (08:18)
[2017-12-26] MEDS: PANTOPRAZOLE 40 MG/10 ML VIAL IVP SCH (08:18)
[2017-12-26] MEDS: FUROSEMIDE 10 MG/ML 2 ML VIAL IV SCH ×2 (08:18→20:30)
[2017-12-26] MEDS: DULoxetine HCL 60 MG CAPSULE.DR PO SCH (08:18)
[2017-12-26] MEDS: ATORVASTATIN 40 MG TAB PO SCH (08:18)
[2017-12-26] MEDS: AMIODARONE 200 MG TAB PO SCH ×2 (08:18→20:30)
[2017-12-26] MEDS: LEVOTHYROXINE IVP 100 MCG/5 ML VIAL IV SCH (08:28)
[2017-12-26] MEDS: MEROPENEM 2 GM in SODIUM CHLORIDE 0.9% 100 ML IVPB SCH ×2 (08:32→20:30)
--- NOTE | 2017-12-26 08:36 | XR ---
EXAMINATION TYPE: XR chest 1V portable DATE OF EXAM: 12/26/2017 Comparison: 12/25/2017 Clinical History: 72-year-old female post cardiac surgery Findings: ET tube tip is high at the level of the thoracic inlet. This could be advanced by 2.5 cm and reassess ed at follow-up. NG tube removed in the interval. Right IJ CVC tip in the right atrium. Heart upper limits of normal in size. Large calcified subcarinal lymph node. Small to moderate left p leural effusion with left lower lung opacity. Impression: 1. ET tube slightly high at the level of the thoracic inlet. Advance by 2.5 cm and reassess at follow -up. 2. Continued [id number] left effusion with adjacent atelectasis and/or consolidation.
[2017-12-26] MEDS: ANIDULAFUNGIN 100 MG in SODIUM CHLORIDE 0.9% 100 ML IVPB SCH (09:41)
[2017-12-26] MEDS: ASPIRIN 81 MG PO SCH (09:42)
[2017-12-26] MEDS: METOPROLOL TARTRATE 25 MG TAB PO SCH ×2 (09:42→20:30)
[2017-12-26] MEDS: CLOPIDOGREL 75 MG TAB PO SCH (09:42)
[2017-12-26] MEDS: oxyCODONE ER 20 MG TAB.ER.12H PO SCH ×2 (10:18→16:13)
--- NOTE | 2017-12-26 11:14 | P.PN ---
Subjective Progress Note Date: 12/26/17 Principal diagnosis: Status post CABG, status post right colectomy for acute perforated viscus and necrosis of the transverse and right colon. On today's evaluation of a 12/18/2017 Carolyn is back to the intensive care unit. She is postop day #7 following her coronary artery bypass surgery. She got transferred because of an extensive liquidy/watery diarrhea which left her into a dehydrated state and causes some non-anion gap metabolic acidosis. Her bicarb level is down to 14. She had 3 additional liquidy bowel movements this morning. The patient was seen by general surgery. CAT scan of the abdomen was done raising the possibility of an underlying ischemic colitis. She was placed on accommodation Zosyn and vancomycin. No fever or chills. She also had gone into atrial fibrillation. The rate is controlled right now with metoprolol and amiodarone and the patient is also on IV heparin. She is complaining of pain throughout her chest and body mainly in the joints and she has been taken hydrocodone outpatient basis. I restarted her on [place] 5 every 6 hours for pain control pH is using incentive spirometer. She is on IV fluids and she'll be started on a bicarb drip. The patient's chest x-ray from today showed small bilateral pleural effusion and basilar atelectasis and left lung base. There is also artifact from external objects on the chest x-ray. The postoperative echocardiogram showed a preserved LV function with an ejection fraction of 50-55 %. No valvular abnormalities noted. On today's evaluation of 12/19/2017, the patient is awake and alert and sitting up on a chair. The diarrhea has subsided significantly. She only had liquidy loose bowel movement there was small amount this morning. Otherwise, the patient is was resuscitated IV fluids. The patient received a bicarb infusion yesterday and her serum bicarb normalizes and earlier this morning associated to a normal saline infusion at the rate of 75 mL an hour. Her urine output is around 20-25 mL an hour. The patient's creatinine is normal. BUN is down to 7. Vascular electrodes are all within normal limits and her bicarb level is normalized. No nausea. No vomiting. No abdominal pain. She is taking clear liquid diet. No chest pain. Chest x-ray shows some mild pulmonary vascular congestion and atelectatic changes in lung bases bilaterally. She is on room air oxygen. Sternum stable clean and intact. She has E. coli in the urine and she is on IV Zosyn. Vancomycin was discontinued. IV heparin was discontinued. Her current rhythm is sinus. On 12/20/2017 the patient developed some vague abdominal pain. This pain started approximately 4 AM in the morning. As mentioned earlier the patient is postop from coronary artery bypass surgery and she is postop day #8. The patient is currently in the intensive care unit. X-ray of the chest was done this morning and it showed free air under the diaphragm. This is consistent with pneumoperitoneum and the patient will need further investigation. Immediately the general surgeon was contacted and the patient had a CAT scan of the abdomen and it showed moderate pneumoperitoneum with site of the perforation i not identified although there was suspicion that maybe the distal stomach/duodenal area. The patient currently on IV Zosyn. No cervical leukocytosis. Urine output is dropped down to 20 mL an hour. Her white count from this morning's at 14.3. Patient be taken to the operating room for an expected laparotomy. No altered mentation. No cough or sputum production. No other complaints otherwise for now. On 12/21/2017 I'm seeing this patient for a follow-up. She is a critically ill female patient was taken to the operating room yesterday for an acute bowel perforation. The patient was found to have pneumoperitoneum and the patient was taken to the operating room and the patient underwent expiratory laparotomy and right colectomy and transverse colectomy and takedown of splenic flexure and diverticular colostomy. The patient intraoperatively was found to have necrosis of the transverse colon and the right colon. Postop, the patient was kept intubated and the patient was moved to the intensive care unit for further evaluation and management. Overnight the patient was given fluid aggressively. She was given IV albumin. She was given lactated Ringer solution and normal saline solution. She did drop her pressure and she had also to placed on pressors and she is currently on 3-4 mics of norepinephrine infusion to maintain a mean artery pressure above 65. This morning I give her another liter of lactated Ringer and nontender albumin 5% to bring her CVP above 12. Hemoglobin dropped down to 6.7. Her white count came up to 31.4 and subsequently dropped down to 23. This is expected as the patient had a bowel necrosis and intra-abdominal sepsis. Antibiotic dressings were done and the patient was placed on Merrem and Eraxis. Earlier this morning the patient was on assist-control mode of ventilation and was obvious that the patient was asynchronous and double stacking on a mechanical ventilator. This was occurring even while on 40 mics of Diprivan infusion. Based on this, necessary vent changes were done. The patient was air hungry and she was taken significantly high tidal volumes. I was able to bring the tidal volume of 600 and the rate of 18 with a FiO2 of 40% and a PEEP of 5. Chest x-ray from today showed that the patient had adequate expansion of both lungs. There is a left- sided pleural effusion and ET tube is around 3-4 cm above the al. The net fluid balance over the past 24 hours is +6 L in the urine output is adequate for now. The patient is afebrile. On 12/22/2017 I'm seeing this patient for a follow-up. Note that the patient is postop day #2 following chest was colectomy, right colectomy and ileostomy and the patient is postop day #11 following her coronary artery bypass surgery. This morning the patient was sedated with Diprivan and she was calm and comfortable. Despite being on Diprivan, the patient was easily arousable. She was maintained on assist control mode of ventilation. Throughout the night the patient was an assist-control at the rate of 20 with a tidal volume of 600 and FiO2 of 40% and PEEP of 5. Chest x-ray showing the development of a left-sided pleural effusion. ET tube is in a good location. Rest of the lungs are all in good location is. NG tube is also in place. The blood gases from this morning showed a pH of 7.42 with a pCO2 of 26 and pO2 of 100. No significant orotracheal secretions. Hemodynamically, the patient was aggressively resuscitated IV fluids. She is in a positive fluid balance in order of 6 L at least and the patient was taken off pressors and she's been off the norepinephrine infusion for now. She is producing adequate amount of urine output. She does have a component of non-anion gap metabolic acidosis with a bicarb level of 16. Renal function stable with a creatinine of 0.9. Rest of the electrolytes are all within normal limits. Her white cell count peaked at 27.5 and currently is down to 25. She remains on a broad-spectrum antibiotics including IV Merrem and Ecaris. The cardiac rhythm remains sinus. CVP is somewhat between 10 and 13. Urine output is order of 30-40 mL an hour. Angiopathy was noted. There is also minimal amount of liquidy material within the ileostomy back. Surgical wound site is open and a superior and inferior portion and the wound VAC will be applied to that area. There is no active drainage at this point in time. Based on all this, I give the patient is sedation holiday. She woke up very nicely and she was able to follow commands and answers questions appropriately. Weaning parameters were checked and the patient had a tidal volume of 510 with a vital capacity of 780 within this of 27 and the rapid shallow breathing index of 34. She was given a CPAP trial and following that the patient was extubated to a nasal cannula pH is tolerated extubation without any major difficulties. At this point in time, the patient is extubated, she is following commands and answering questions appropriately. Family is at the bedside. On 12/23/2017, the patient remains extubated. She is postop day #3 following a right colectomy, transverse colectomy and ileostomy and she is postop day #12 following her coronary artery bypass surgery. I was able to wean the patient off the mechanical ventilator and she extubated very nicely without having any major difficulties and currently is on 2 L of oxygen by nasal cannula. Her chest x-ray continues to show a large left-sided pleural effusion. Earlier this morning he was given 40 mg of IV Lasix which improved her urine function and output and the patient is producing more than 50 mL of urine output on hourly basis. She is nothing by mouth. NG tube is in place. Her CVP remains somewhere between 11 and 18. She is producing up to 50 mL of urine output on hourly basis. Rule out able to apply wound VAC to her abdominal wall wound and the open incisions are well covered and she is producing approximately 600 mL of material from the wound VAC system was inserted yesterday. Sternum is stable clean and intact. She is weak and a bit lethargic, slightly worse compared to yesterday and this is probably attributed to her inability to fall asleep throughout the night. No active pain. She is weak. She denies having any specific complaints for now. TPN was started as the patient's pre-albumin and albumin and total protein is extremely low. Serum bicarb is gradually improving is up to 19. On 12/24/2017, the patient is awake and alert and she is postop day #4 from her bowel surgery and postop day #13 from her cardiac surgery. She is awake and alert and she is communicating. She is on 2 L about 2 by nasal cannula. No respiratory distress. She is diuresing and the chest x-ray shows improvement in the volume status and the patient was started on IV Lasix today. She was already producing approximately 40-50 mL an hour of urine output. NG tube is in place and output has been 100 mL over the past 24 hours. The patient has approximately 120cc of output and had ileostomy site. The wound VAC is also in place and the output has been not considerably high. She is doing well. Cardiac rhythm remains in normal sinus mechanism. The patient has TPN for nutritional support. Hemodynamically stable. No hypotension. No pressors requirements. No other significant events overnight. No altered mentation. On 12/25/2017, patient is postoperative day #5 from her bowel surgery, and postoperative day #14 from cardiac surgery. Patient is doing well, she is on 2 L nasal cannula, in no form of distress. Sitting at a bedside chair, asymptomatic. Chest x-ray is suggestive of a good sized left-sided pleural effusion, hence I recommended ultrasound of the chest to be done, may require left-sided thoracentesis. The ultrasound did show good sized left-sided pleural effusion, and I think I will recommend thoracentesis in the next 24 hours. All labs were reviewed including his CBC and renal profile. Clinically the patient is actually doing well. On 12/18/2017, patient is postoperative day #6 from her bowel surgery and postoperative day #15 from cardiac surgery. Remains on 2 L nasal cannula, in no distress, chest x-ray is showing improvement in her bilateral pleural effusions especially the left one. I was planning thoracentesis done the patient today, but considering the patient has excellent urine output, and the pleural effusion seems to be better, will cancel plans for left-sided thoracentesis today. Labs were reviewed, relatively normal electrolytes, and a relatively normal CBC except for hemoglobin of 7.8 which seems to be holding. Patient is asymptomatic, denies any shortness of breath no cough no wheezing no chest pain. No nausea no vomiting no abdominal pain. Her nasogastric tube was pulled out today. We'll start on clear liquids. Objective - Vital Signs Vital signs: Vital Signs Temp 98 F 12/26/17 08:00 Pulse 85 12/26/17 11:04 Resp 23 12/26/17 10:00 BP 134/70 12/26/17 10:00 Pulse Ox 98 12/26/17 10:00 Intake & Output 12/25/17 12/26/17 12/26/17 18:59 06:59 18:59 Intake Total 2377 984 573 Output Total 5920 1980 680 Balance -13 -996 -107 Weight 99.4 kg Intake: IV 793 984 423 Amino Acid 5%-D15w+Lytes* 660 720 150 E* 1,000 ml @ 60 mls/hr IV .BY DURATION [facility] Rx#: [id number] Fat Emulsion 20% 250 ml 231 21 In Empty Bag 1 bag @ 21 mls/hr IV DAILY@1600 [facility] Rx#:[id number] Meropenem 2 gm In Sodium 100 100 Chloride 0.9% 100 ml @ 200 mls/hr IVPB Q12HR [facility] Rx#:[id number] Potassium Chloride 20 meq 100 In Water For Injection 1 100ml.bag @ 50 mls/hr IVPB Q2H [facility] Rx#: [id number] Pressure Bags 33 33 12 Sodium Chloride 0.9% 500 40 ml @ 20 mls/hr IV .Q24H [facility] Rx#:[id number] Intake, IV Titration 1584 150 Amount Amino Acid 5%-D15w+Lytes* 273 E* 1,000 ml @ 60 mls/hr IV .BY DURATION [facility] Rx#: [id number] Anidulafungin 100 mg In 100 130 Sodium Chloride 0.9% 100 ml @ 84 mls/hr IVPB DAILY [facility] Rx#:[id number] Mvi, Adult No.4 with Vit 1011 K 10 ml Trace (Conc-1Ml/ Dose) 1 ml In Amino Acid 5%-D15w+Lytes*E* 1,000 ml @ 60 mls/hr IV .BY DURATION [facility] Rx#: [id number] Potassium Chloride 10 meq 200 In Water For Injection 1 100ml.bag @ 100 mls/hr IVPB Q1H [facility] Rx#: [id number] Sodium Chloride 0.9% 1, 20 000 ml @ 20 mls/hr IV . Q24H [facility] Rx#:[id number] Output: Gastric Drainage 500 Drainage 125 Medial Abdomen 125 Urine 1665 1980 680 Stool 100 Other: Voiding Method Indwelling Catheter Indwelling Catheter Indwelling Catheter ABP, PAP, CO, CI - Last Documented Arterial Blood Pressure 159/93 Pulmonary Artery Pressure 4/4 Cardiac Output 4.5 Cardiac Index 2.5 - Exam Physical Exam: Revealed a 72-year-old female in no distress. Head: Atraumatic, normocephalic. HEENT:[Neck is supple.] [No neck masses.] [No thyromegaly.] [No JVD.] Nasogastric tube was noted but it was removed shortly after. Chest: [Diminished breath sounds at the bases, no crackles or rhonchi or wheezes..] Cardiac Exam: [Normal S1 and S2, no S3 gallop, no murmur.] Abdomen: [Soft, nontender, no megaly, no rebound, no guarding, hypoactive bowel sounds, right lower quadrant ileostomy noted with dark brown liquid drainage. Approximately 35 mL output overnight. Extremities: [No clubbing, 1+ bipedal edema, no cyanosis.] Neurological Exam: [No focal neurologic deficit.] Psychiatric: Normal mood affect and mental status examination. - Labs CBC & Chem 7: 12/26/17 04:15 12/26/17 04:15 Labs: Abnormal Lab Results - Last 24 Hours (Table) 12/25/17 12/25/17 12/25/17 Range/Units 11:18 17:14 23:33 WBC (3.8-10.6) k/uL RBC (3.80-5.40) m/uL Hgb (11.4-16.0) gm/dL Hct (34.0-46.0) % RDW (11.5-15.5) % Neutrophils # (1.3-7.7) k/uL Lymphocytes # (1.0-4.8) k/uL Sodium (137-145) mmol/L BUN (7-17) mg/dL Glucose (74-99) mg/dL POC Glucose (mg/dL) 191 H 176 H 184 H (75-99) mg/dL Calcium (8.4-10.2) mg/dL Alkaline Phosphatase (38-126) U/L Total Protein (6.3-8.2) g/dL Albumin (3.5-5.0) g/dL 12/26/17 12/26/17 12/26/17 Range/Units 04:15 04:15 05:41 WBC 14.7 H (3.8-10.6) k/uL RBC 2.85 L (3.80-5.40) m/uL Hgb 7.8 L (11.4-16.0) gm/dL Hct 24.6 L (34.0-46.0) % RDW 16.0 H (11.5-15.5) % Neutrophils # 12.5 H (1.3-7.7) k/uL Lymphocytes # 0.8 L (1.0-4.8) k/uL Sodium 134 L (137-145) mmol/L BUN 24 H (7-17) mg/dL Glucose 158 H (74-99) mg/dL POC Glucose (mg/dL) 174 H (75-99) mg/dL Calcium 7.8 L (8.4-10.2) mg/dL Alkaline Phosphatase 274 H (38-126) U/L Total Protein 4.3 L (6.3-8.2) g/dL Albumin 1.9 L (3.5-5.0) g/dL 12/26/17 Range/Units 07:36 WBC (3.8-10.6) k/uL RBC (3.80-5.40) m/uL Hgb (11.4-16.0) gm/dL Hct (34.0-46.0) % RDW (11.5-15.5) % Neutrophils # (1.3-7.7) k/uL Lymphocytes # (1.0-4.8) k/uL Sodium (137-145) mmol/L BUN (7-17) mg/dL Glucose (74-99) mg/dL POC Glucose (mg/dL) 173 H (75-99) mg/dL Calcium (8.4-10.2) mg/dL Alkaline Phosphatase (38-126) U/L Total Protein (6.3-8.2) g/dL Albumin (3.5-5.0) g/dL Assessment and Plan Assessment: #1. Multivessel coronary artery disease, involving left main coronary artery. And is awaiting coronary artery bypass grafting and surgery was done 12/11/2017 18 and the patient is postop day #15 #2. Acute perforated viscus with necrosis of the transverse and right colon and the patient is status post right colectomy, transverse colectomy and takedown of splenic flexure with diabetic ileostomy. Postoperative day #6 #3. Acute hypoxic respiratory failure secondary to above. Extubated to a 2 L of oxygen by nasal cannula and the patient has a small left-sided pleural effusion, no plans to do thoracentesis today. #4. Acute hypotension, recovered and the patient is currently on no pressors #5. Atrial fibrillation, and expected outcome of surgery , back to sinus #6. Peripheral vascular disease #7. History of nicotine dependence, currently in remission, quit 10 years ago, carries [id number] smoking history #8. Hypothyroidism #9. Diabetes mellitus type 2 #10. Chronic low back pain #11. Depression #12 obesity with a BMI of 34.3 #13 leukocytosis #14 anemia and expected outcome of surgery, #15 hyperlipidemia #16 leukocytosis, improving and the white cell count is down to 14.7 #17 non-anion gap metabolic acidosis, improving #18 left-sided pleural effusion seems to be getting smaller on the chest x-ray today. Hence was canceled plans for thoracentesis. #19 severe hypoproteinemia and hyperlipidemia and the patient was placed on TPN , patient will be started on full liquids orally today. Recommendation: Continue present supportive care measures, will continue to follow. Time with Patient: Less than 30
[2017-12-26 12:03] LABS: Glucose,Whole Blood 131 mg/dL (75-99)
[2017-12-26] MEDS: ASCORBIC ACID 500 MG TAB PO SCH (12:22)
[2017-12-26] MEDS: CYANOCOBALAMIN 500 MCG TAB PO SCH (12:22)
[2017-12-26] MEDS: SODIUM CHLORIDE 0.9% 1,000 ML IV SCH (12:22)
[2017-12-26] MEDS: FERROUS SULFATE 325 MG TAB PO SCH (12:22)
--- NOTE | 2017-12-26 14:24 | P.PN ---
Subjective Progress Note Date: 12/26/17 72-year-old seen in the ICU currently sitting up in a chair. Arousable to verbal stimuli. Nasal gastric tube has been removed. Patients being followed by the micro paleontologist and pulmonary. Currently on 2 L nasal cannula with chest x- ray showing improvement in the bilateral pleural effusion. Patient reports no nausea vomiting. stool from the ostomy surgical dressings dry [address] Patient status post status post right colectomy for acute perforated viscus and necrosis of the transverse and right colon. Postop day 6 Objective - Vital Signs Vital signs: Vital Signs Temp 98.7 F 12/26/17 12:00 Pulse 83 12/26/17 13:00 Resp 23 12/26/17 13:00 BP 129/66 12/26/17 13:00 Pulse Ox 98 12/26/17 13:00 Intake & Output 12/25/17 12/26/17 12/26/17 18:59 06:59 18:59 Intake Total 2377 984 582 Output Total 4630 1980 840 Balance -13 -996 -258 Weight 99.4 kg 99.4 kg Intake: IV 793 984 432 Amino Acid 5%-D15w+Lytes* 660 720 150 E* 1,000 ml @ 60 mls/hr IV .BY DURATION [facility] Rx#: [id number] Fat Emulsion 20% 250 ml 231 21 In Empty Bag 1 bag @ 21 mls/hr IV DAILY@1600 [facility] Rx#:[id number] Meropenem 2 gm In Sodium 100 100 Chloride 0.9% 100 ml @ 200 mls/hr IVPB Q12HR [facility] Rx#:[id number] Potassium Chloride 20 meq 100 In Water For Injection 1 100ml.bag @ 50 mls/hr IVPB Q2H [facility] Rx#: [id number] Pressure Bags 33 33 21 Sodium Chloride 0.9% 500 40 ml @ 20 mls/hr IV .Q24H [facility] Rx#:[id number] Intake, IV Titration 1584 150 Amount Amino Acid 5%-D15w+Lytes* 273 E* 1,000 ml @ 60 mls/hr IV .BY DURATION [facility] Rx#: [id number] Anidulafungin 100 mg In 100 130 Sodium Chloride 0.9% 100 ml @ 84 mls/hr IVPB DAILY [facility] Rx#:[id number] Mvi, Adult No.4 with Vit 1011 K 10 ml Trace (Conc-1Ml/ Dose) 1 ml In Amino Acid 5%-D15w+Lytes*E* 1,000 ml @ 60 mls/hr IV .BY DURATION [facility] Rx#: [id number] Potassium Chloride 10 meq 200 In Water For Injection 1 100ml.bag @ 100 mls/hr IVPB Q1H [facility] Rx#: [id number] Sodium Chloride 0.9% 1, 20 000 ml @ 20 mls/hr IV . Q24H [facility] Rx#:[id number] Output: Gastric Drainage 500 Drainage 125 Medial Abdomen 125 Urine 1665 1980 840 Stool 100 Other: Voiding Method Indwelling Catheter Indwelling Catheter Indwelling Catheter ABP, PAP, CO, CI - Last Documented Arterial Blood Pressure 159/93 Pulmonary Artery Pressure 4/4 Cardiac Output 4.5 Cardiac Index 2.5 - Exam Physical exam Hitting up in a chair arousable to verbal stimuli Lungs diminished bilaterally 2 L nasal cannula keeping a sat 98 Heart S1-S2 audible Abdomen ostomy no movement no stool surgical dressing currently dry. Hypoactive bowel tones nasal indwelling Almaguer catheter in place reports no nausea vomiting Extremities Venodyne's on to bilateral lower extremities - Labs CBC & Chem 7: 12/26/17 04:15 12/26/17 04:15 Labs: Abnormal Lab Results - Last 24 Hours (Table) 12/25/17 12/25/17 12/26/17 Range/Units 17:14 23:33 04:15 WBC (3.8-10.6) k/uL RBC (3.80-5.40) m/uL Hgb (11.4-16.0) gm/dL Hct (34.0-46.0) % RDW (11.5-15.5) % Neutrophils # (1.3-7.7) k/uL Lymphocytes # (1.0-4.8) k/uL Sodium 134 L (137-145) mmol/L BUN 24 H (7-17) mg/dL Glucose 158 H (74-99) mg/dL POC Glucose (mg/dL) 176 H 184 H (75-99) mg/dL Calcium 7.8 L (8.4-10.2) mg/dL Alkaline Phosphatase 274 H (38-126) U/L Total Protein 4.3 L (6.3-8.2) g/dL Albumin 1.9 L (3.5-5.0) g/dL 12/26/17 12/26/17 12/26/17 Range/Units 04:15 05:41 07:36 WBC 14.7 H (3.8-10.6) k/uL RBC 2.85 L (3.80-5.40) m/uL Hgb 7.8 L (11.4-16.0) gm/dL Hct 24.6 L (34.0-46.0) % RDW 16.0 H (11.5-15.5) % Neutrophils # 12.5 H (1.3-7.7) k/uL Lymphocytes # 0.8 L (1.0-4.8) k/uL Sodium (137-145) mmol/L BUN (7-17) mg/dL Glucose (74-99) mg/dL POC Glucose (mg/dL) 174 H 173 H (75-99) mg/dL Calcium (8.4-10.2) mg/dL Alkaline Phosphatase (38-126) U/L Total Protein (6.3-8.2) g/dL Albumin (3.5-5.0) g/dL 12/26/17 Range/Units 12:02 WBC (3.8-10.6) k/uL RBC (3.80-5.40) m/uL Hgb (11.4-16.0) gm/dL Hct (34.0-46.0) % RDW (11.5-15.5) % Neutrophils # (1.3-7.7) k/uL Lymphocytes # (1.0-4.8) k/uL Sodium (137-145) mmol/L BUN (7-17) mg/dL Glucose (74-99) mg/dL POC Glucose (mg/dL) 131 H (75-99) mg/dL Calcium (8.4-10.2) mg/dL Alkaline Phosphatase (38-126) U/L Total Protein (6.3-8.2) g/dL Albumin (3.5-5.0) g/dL Assessment and Plan Assessment: Impression Ischemic colitis resolving stool for C. diff negative Postop diarrhea 9 expected outcome Postop day 8 urgent quadruple coronary artery bypass grafting using left internal mammary Echocardiogram preserved LV function Sudden onset of abdominal pain postoperative suspect due to free air. As evident on a CAT scan of the abdomen and pelvis Right colectomy, transverse colectomy, takedown splenic flexure, ileostomy for Perforated viscus done on December 20 Necrosis of transverse colon, right colon Plan Continue postop [facility] care Continue recommendations by the micro paleontologist PT EMILY orellana Will follow with you with further recommendations as clinical course indicates The above impression and plan of care have been discussed and directed by signing physician. Missy Baca nurse practitioner acting as scribe for signing physician.
--- NOTE | 2017-12-26 15:25 | P.PN ---
Subjective Progress Note Date: 12/26/17 This is 72-year-old female status post bypass surgery for left main disease. Patient has been having abdominal discomfort. She seemed to have colitis. She is having diarrhea. No complaints of any chest pain. He patient is maintaining sinus rhythm. Also having some problems with urination, urinary retention. From [facility] standpoint we'll continue current medical therapy 12/17/2017: The patient continues to be agitated. He still complains of back pain and leg pain. Computed tomography scan of the abdomen showed evidence of colitis. She is not having any diarrhea. Patient is being treated for UTI and colitis with antibiotics. Her echocardiogram showed preserved LV function without any significant valvular abnormalities. We'll continue with current management. Prognosis is guarded. 12/18/2017: The patient is still complaining of abdominal pain and generalized body pain. Hemodynamically stable. Continues to have diarrhea. Blood pressure is stable. No arrhythmias are noted. Patient may need a better pain management. From [facility] standpoint we'll continue current medical therapy. 12/19/2017: Patient is feeling better today. She is in less pain. Her diarrhea is improved. Patient in the chair seemed to be cheerful. Remains in sinus rhythm. No arrhythmias are detected. Her bicarbonate is corrected. There is a possibility that patient may be moving to telemetry. 12/20/2017: This patient apparently developed abdominal pain last night. Chest x-ray this morning showed evidence of pneumoperitoneum. Subsequent CAT scan also showed moderate pneumoperitoneum. It was felt was secondary to a ruptured viscus probably duodenum. Patient doesn't have any other complaints. Appear to be in sinus rhythm. Patient is taken to the operating room by the surgeon for exploratory laparotomy. 12/25/2017: This patient is status post aortic coronary bypass surgery. 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 Patient is clinically doing well. Chest x-ray showed a pleural effusion on the left side. Dr. Rod is going to pleurocentesis probably within next 24 hours. Cardiac was patient is maintaining sinus rhythm. Blood pressure is running high. I'm going to add Norvasc 5 mg. Rest of the medication to be continued. 12/26/2017: The patient is feeling much better today. Diet has been advanced. Denies any chest pain or shortness of breath. Overall her clinical status is stable. We'll continue current medical therapy. Increase activity as tolerated Objective - Vital Signs Vital signs: Vital Signs Temp 98.7 F 12/26/17 12:00 Pulse 83 12/26/17 13:00 Resp 23 12/26/17 13:00 BP 129/66 12/26/17 13:00 Pulse Ox 98 12/26/17 13:00 Intake & Output 12/25/17 12/26/17 12/26/17 18:59 06:59 18:59 Intake Total 2371 984 582 Output Total 8458 1980 840 Balance -13 -996 -258 Weight 99.4 kg 99.4 kg Intake: IV 793 984 432 Amino Acid 5%-D15w+Lytes* 660 720 150 E* 1,000 ml @ 60 mls/hr IV .BY DURATION [facility] Rx#: [id number] Fat Emulsion 20% 250 ml 231 21 In Empty Bag 1 bag @ 21 mls/hr IV DAILY@1600 [facility] Rx#:[id number] Meropenem 2 gm In Sodium 100 100 Chloride 0.9% 100 ml @ 200 mls/hr IVPB Q12HR [facility] Rx#:[id number] Potassium Chloride 20 meq 100 In Water For Injection 1 100ml.bag @ 50 mls/hr IVPB Q2H [facility] Rx#: [id number] Pressure Bags 33 33 21 Sodium Chloride 0.9% 500 40 ml @ 20 mls/hr IV .Q24H [facility] Rx#:[id number] Intake, IV Titration 1584 150 Amount Amino Acid 5%-D15w+Lytes* 273 E* 1,000 ml @ 60 mls/hr IV .BY DURATION [facility] Rx#: [id number] Anidulafungin 100 mg In 100 130 Sodium Chloride 0.9% 100 ml @ 84 mls/hr IVPB DAILY [facility] Rx#:[id number] Mvi, Adult No.4 with Vit 1011 K 10 ml Trace (Conc-1Ml/ Dose) 1 ml In Amino Acid 5%-D15w+Lytes*E* 1,000 ml @ 60 mls/hr IV .BY DURATION [facility] Rx#: [id number] Potassium Chloride 10 meq 200 In Water For Injection 1 100ml.bag @ 100 mls/hr IVPB Q1H [facility] Rx#: [id number] Sodium Chloride 0.9% 1, 20 000 ml @ 20 mls/hr IV . Q24H [facility] Rx#:[id number] Output: Gastric Drainage 500 Drainage 125 Medial Abdomen 125 Urine 1665 1980 840 Stool 100 Other: Voiding Method Indwelling Catheter Indwelling Catheter Indwelling Catheter ABP, PAP, CO, CI - Last Documented Arterial Blood Pressure 159/93 Pulmonary Artery Pressure 4/4 Cardiac Output 4.5 Cardiac Index 2.5 - Exam Physical exam. Not available. Patient was in the Skin and subsequently taken to the operating room 12/25/2017: Patient is alert and oriented. No acute distress. Patient is sitting in the chair. . Heart is regular. Lungs show diminished breath sounds especially on the left side. Abdomen is postsurgical. - Labs CBC & Chem 7: 12/26/17 04:15 12/26/17 04:15 Labs: Abnormal Lab Results - Last 24 Hours (Table) 12/25/17 12/25/17 12/26/17 Range/Units 17:14 23:33 04:15 WBC (3.8-10.6) k/uL RBC (3.80-5.40) m/uL Hgb (11.4-16.0) gm/dL Hct (34.0-46.0) % RDW (11.5-15.5) % Neutrophils # (1.3-7.7) k/uL Lymphocytes # (1.0-4.8) k/uL Sodium 134 L (137-145) mmol/L BUN 24 H (7-17) mg/dL Glucose 158 H (74-99) mg/dL POC Glucose (mg/dL) 176 H 184 H (75-99) mg/dL Calcium 7.8 L (8.4-10.2) mg/dL Alkaline Phosphatase 274 H (38-126) U/L Total Protein 4.3 L (6.3-8.2) g/dL Albumin 1.9 L (3.5-5.0) g/dL 12/26/17 12/26/17 12/26/17 Range/Units 04:15 05:41 07:36 WBC 14.7 H (3.8-10.6) k/uL RBC 2.85 L (3.80-5.40) m/uL Hgb 7.8 L (11.4-16.0) gm/dL Hct 24.6 L (34.0-46.0) % RDW 16.0 H (11.5-15.5) % Neutrophils # 12.5 H (1.3-7.7) k/uL Lymphocytes # 0.8 L (1.0-4.8) k/uL Sodium (137-145) mmol/L BUN (7-17) mg/dL Glucose (74-99) mg/dL POC Glucose (mg/dL) 174 H 173 H (75-99) mg/dL Calcium (8.4-10.2) mg/dL Alkaline Phosphatase (38-126) U/L Total Protein (6.3-8.2) g/dL Albumin (3.5-5.0) g/dL 12/26/17 Range/Units 12:02 WBC (3.8-10.6) k/uL RBC (3.80-5.40) m/uL Hgb (11.4-16.0) gm/dL Hct (34.0-46.0) % RDW (11.5-15.5) % Neutrophils # (1.3-7.7) k/uL Lymphocytes # (1.0-4.8) k/uL Sodium (137-145) mmol/L BUN (7-17) mg/dL Glucose (74-99) mg/dL POC Glucose (mg/dL) 131 H (75-99) mg/dL Calcium (8.4-10.2) mg/dL Alkaline Phosphatase (38-126) U/L Total Protein (6.3-8.2) g/dL Albumin (3.5-5.0) g/dL Assessment and Plan (1) Colitis Current Visit: Yes Status: Acute Code(s): K52.9 - NONINFECTIVE GASTROENTERITIS AND COLITIS, UNSPECIFIED SNOMED Code(s): 45792551 (2) Diarrhea in adult patient Current Visit: Yes Status: Acute Code(s): R19.7 - DIARRHEA, UNSPECIFIED SNOMED Code(s): 40018690 (3) Urinary tract infection Current Visit: Yes Status: Acute Code(s): N39.0 - URINARY TRACT INFECTION, SITE NOT SPECIFIED SNOMED Code(s): 54301939 (4) Coronary artery disease involving left main coronary artery Current Visit: Yes Status: Chronic Code(s): I25.10 - ATHSCL HEART DISEASE OF [place] CORONARY ARTERY W/O ANG PCTRS SNOMED Code(s): 276964886 (5) Depression Current Visit: Yes Status: Chronic Code(s): F32.9 - MAJOR DEPRESSIVE DISORDER, SINGLE EPISODE, UNSPECIFIED SNOMED Code(s): 65402826 (6) Pneumoperitoneum Current Visit: Yes Status: Acute Code(s): K66.8 - OTHER SPECIFIED DISORDERS OF [place]ITONEUM SNOMED Code(s): 44105892 Plan: Patient is hemodynamically stable. Clinically feeling better. Maintaining normal vital signs. Patient will continue current medical therapy
[2017-12-26 17:50] LABS: Glucose,Whole Blood 106 mg/dL (75-99)
--- NOTE | 2017-12-26 22:05 | PN ---
PROGRESS NOTE DATE OF SERVICE: 12/26/2017. PRESENTING COMPLAINT: Status post CABG. INTERVAL HISTORY: Patient is status post CABG, in the ICU, then had ischemic bowel and had bowel perforation resulting in ostomy, has a wound VAC in place. NG tube was taken out today. The patient could not get a PICC line, but a bit line was placed. TPN lipids were discontinued. Started on a clear liquid diet earlier today. The patient's ostomy bag is working. Wound VAC is in place. The patient did sit up on a chair. REVIEW OF SYSTEMS: Done for constitutional, cardiovascular, GI, pulmonary and relevant findings as above. CURRENT MEDICATIONS: Reviewed that include DuoNeb, Cordarone, antifungal, meropenem. EXAMINATION: VITAL SIGNS: Temperature 98.1, pulse 85, respiration 15, blood pressure 134/80, pulse ox 97 percent on 2 L. GENERAL APPEARANCE: Lying in bed, more awake. EYES: Pupils equal. Conjunctivae normal. HEENT: External appearance of nose and ears normal. Oral cavity normal. NG tube discontinued. NECK: JVD unable to assess. Mass not palpable. RESPIRATORY: Effort increased. LUNGS: Diminished breath sounds. CARDIOVASCULAR: Heart sounds muffled. Some edema. ABDOMEN: Soft. Dark stool in the ostomy bag. Wound VAC in place. Liver and spleen not palpable. PSYCHIATRY: Alert and oriented x3. Mood and affect more perky. INVESTIGATIONS: White count 14.7, hemoglobin 7.8, potassium 3.7. BUN 24, creatinine 0.6. ASSESSMENT: 1. Coronary artery disease status post coronary artery bypass on December 11, 2017. 2. Acute ischemic bowel with perforation with right transverse colectomy and takedown of the splenic flexure with resultant ostomy. 3. Wound VAC in place. 4. Acute hypoxic respiratory failure status post ventilator support, currently on 2 L of oxygen. 5. Hypotensive shock from sepsis and septic shock, now recovered. The patient is on IV meropenem and antifungals. 6. Paroxysmal atrial fibrillation currently in sinus rhythm. 7. Peripheral artery disease. 8. Hypothyroid. 9. Diabetes mellitus type 2. 10.Chronic low back pain from arthritis. 11.Depression, not otherwise specified. 12.Obesity; BMI 34.3. 13.Acute blood loss anemia expected from surgery and hospital acquired from blood draws. 14.Hyperlipidemia. 15.Hypoalbuminemia as an acute phase reactant. 16.Left-sided pleural effusion for thoracentesis. 17.Essential hypertension, now blood pressure is better controlled. PLAN: Continue current medication and treatment plan. Diet is being advanced per Surgery. Care was discussed with the patient. MMODL / IJN: [id number] /
[2017-12-27] MEDS: KETOROLAC 30 MG/ML 1 ML VIAL IVP SCH ×2 (00:43→06:20)
[2017-12-27] MEDS: oxyCODONE ER 20 MG TAB.ER.12H PO SCH ×4 (00:43→23:42)
[2017-12-27] MEDS: HEPARIN SODIUM,PORCINE 5,000 UNIT/ML 1 ML VIAL SQ SCH ×4 (00:44→23:44)
[2017-12-27] MEDS: hydrALAZINE HCL 20 MG/ML 1 ML VIAL IVP SCH ×2 (00:44→06:20)
[2017-12-27] MEDS: INSULIN ASPART 100 UNIT/ML 1 ML 10 ML VIAL SQ SCH ×5 (02:35→21:44)
[2017-12-27 02:36] LABS: Glucose,Whole Blood 93 mg/dL (75-99)
[2017-12-27 05:07] LABS: Glucose,Whole Blood 95 mg/dL (75-99)
[2017-12-27] MEDS: LEVOTHYROXINE 75 MCG TAB PO SCH (06:20)
[2017-12-27 06:37] LABS: Basophils # (A) 0.1 k/uL (0-0.2); Basophils % (A) 0 %; Eosinophils # (A) 0.4 k/uL (0-0.7); Eosinophils % (A) 2 %; HCT 26.8 % (34.0-46.0); HGB 8.3 gm/dL (11.4-16.0); Hypochromasia Moderate; Lymphocytes # (A) 1.1 k/uL (1.0-4.8); Lymphocytes % (A) 6 %; MCH 27.5 pg (25.0-35.0); MCHC 30.9 g/dL (31.0-37.0); MCV 88.9 fL (80.0-100.0); Mean Platelet Volume 6.9; Monocytes # (A) 0.9 k/uL (0-1.0); Monocytes % (A) 5 %; Neutrophils # (A) 15.8 k/uL (1.3-7.7); Neutrophils % (A) 85 %; Platelet Count 486 k/uL (150-450); Poikilocytosis Slight; RBC 3.01 m/uL (3.80-5.40); WBC 18.7 k/uL (3.8-10.6)
[2017-12-27 06:44] LABS: Ionized Calcium 5.3 mg/dL (4.5-5.3)
[2017-12-27 06:53] LABS: ALT 30 U/L (9-52); AST 32 U/L (14-36); Albumin 2.1 g/dL (3.5-5.0); Alkaline Phosphatase 394 U/L (38-126); Anion Gap 5 mmol/L; Blood Urea Nitrogen 25 mg/dL (7-17); Calcium 8.3 mg/dL (8.4-10.2); Carbon Dioxide 26 mmol/L (22-30); Chloride 104 mmol/L (98-107); Glucose 85 mg/dL (74-99); Phosphorus 3.4 mg/dL (2.5-4.5); Potassium 4.5 mmol/L (3.5-5.1); Sodium 135 mmol/L (137-145); Total Bilirubin 0.6 mg/dL (0.2-1.3); Total Protein 4.8 g/dL (6.3-8.2)
[2017-12-27 07:45] LABS: Glucose,Whole Blood 101 mg/dL (75-99)
[2017-12-27] MEDS: IPRATROPIUM-ALBUTEROL 3 ML NEB INHALATION SCH ×4 (08:26→20:18)
--- NOTE | 2017-12-27 08:38 | P.PN ---
Subjective Progress Note Date: 12/27/17 Principal diagnosis: Coronary artery disease with critical left main disease. Preserved left ventricular function. Previous medical history of hypertension, hyperlipidemia , diabetes mellitus with preoperative hemoglobin A1c 8.1%, hypothyroid, chest granulomatous disease, peripheral vascular disease status post right fem-pop bypass, previous tobacco dependence with FEV1 109% of predicted in November 2016, recent fall in June 2017 with torn right rotator cuff, questionable DVT with previous Coumadin use greater than 2 years ago, syncopal episodes, paroxysmal atrial fibrillation, chronic low back pain, obesity, and depression. Preoperative E. coli urinary tract infection. POD #16 urgent quadruple coronary artery bypass grafting using the left internal mammary sequentially to the diagonal artery and to the left anterior descending artery, reverse saphenous vein graft from the aorta to the first obtuse marginal, reverse saphenous vein graft from the aorta to the third obtuse marginal artery. Bilateral pulmonary vein isolation using the AtriCure radiofrequency clamp. Exclusion of the left atrial appendage using a 35 mm AtriClip. Intraoperative transesophageal echocardiogram and epi-aortic scanning. Postoperative elevation in transaminases, an unexpected outcome, resolving. Leukocytosis, present preoperatively. Postoperative diarrhea, an unexpected outcome. Postoperative normocytic, normochromic anemia, and expected outcome of surgery secondary to cardiopulmonary bypass and hemodilution. Postoperative urinary retention, an unexpected outcome. Postoperative pneumoperitoneum, an unexpected outcome. Necrosis of the transverse colon, right colon, an unexpected outcome. Sepsis, septic shock, an unexpected outcome. POD #6 right colectomy, transverse colectomy, takedown splenic flexure, ileostomy performed by Dr. Montoya. Postoperative prolonged mechanical ventilation, need to be reintubated for second surgery, an unexpected outcome. Patient's currently sitting up in the recliner in the intensive care unit in no acute distress. Patient is much more alert this morning, states her pain is much better controlled. Blood pressures is better controlled as well. Wound VAC in place. Ostomy with stool present. Patient is continued to tolerate full liquid diet without any nausea. Midline catheter placed yesterday, triple lumen central line discontinued. TPN discontinued. Objective - Vital Signs Vital signs: Vital Signs Temp 97.9 F 12/27/17 00:00 Pulse 80 12/27/17 06:00 Resp 12 12/27/17 06:00 BP 134/62 12/27/17 06:00 Pulse Ox 98 12/27/17 06:00 Intake & Output 12/26/17 12/27/17 12/27/17 18:59 06:59 18:59 Intake Total 585 100 Output Total 1105 770 Balance -520 -670 Weight 99.4 kg 94.6 kg Intake: IV 435 100 Amino Acid 5%-D15w+Lytes* 150 E* 1,000 ml @ 60 mls/hr IV .BY DURATION [facility] Rx#: [id number] Fat Emulsion 20% 250 ml 21 In Empty Bag 1 bag @ 21 mls/hr IV DAILY@1600 [facility] Rx#:[id number] Meropenem 2 gm In Sodium 100 100 Chloride 0.9% 100 ml @ 200 mls/hr IVPB Q12HR [facility] Rx#:[id number] Potassium Chloride 20 meq 100 In Water For Injection 1 100ml.bag @ 50 mls/hr IVPB Q2H [facility] Rx#: [id number] Pressure Bags 24 Sodium Chloride 0.9% 500 40 ml @ 20 mls/hr IV .Q24H [facility] Rx#:[id number] Intake, IV Titration 150 Amount Anidulafungin 100 mg In 130 Sodium Chloride 0.9% 100 ml @ 84 mls/hr IVPB DAILY [facility] Rx#:[id number] Sodium Chloride 0.9% 1, 20 000 ml @ 20 mls/hr IV . Q24H [facility] Rx#:[id number] Output: Urine 1105 770 Other: Voiding Method Indwelling Catheter Indwelling Catheter ABP, PAP, CO, CI - Last Documented Arterial Blood Pressure 159/93 Pulmonary Artery Pressure 4/4 Cardiac Output 4.5 Cardiac Index 2.5 - Constitutional General appearance: Present: cooperative, no acute distress, obese - Respiratory Details: Lungs sounds diminished bilaterally, left side greater than right. Respirations even, nonlabored. Currently on 2 L nasal cannula with oxygen saturation 97%. Able to achieve 1250 mL on her incentive spirometry. Strong cough. - Cardiovascular Details: S1, S2 present. Regular rate and rhythm, sinus rhythm on telemetry. Sternum stable. Palpable peripheral pulses bilaterally. Generalized nonpitting edema present but decreasing. Right upper basilic vein midline catheter present. Antiembolism stockings, SCDs present. - Gastrointestinal Gastrointestinal Comment(s): Abdomen soft, nondistended. Hypoactive bowel sounds present. Right lower quadrant ileostomy present with dark brown liquid stool. Tolerating full liquid diet. - Genitourinary Genitourinary Comment(s): Almaguer present draining clear, yellow urine. Output is 30-70 mL per hour overnight, 340 mL diuresis in the last 8 hours. - Integumentary Integumentary Comment(s): Skin is warm and dry. Anterior chest incision well approximated with dry intact dressing present. Left lower semi-EVH site well approximated. Midline abdominal incision clean, andrei intact, wound VAC present with 200 mL output present. - Neurologic Neurologic: Present: CNII-XII intact - Musculoskeletal Musculoskeletal: Present: generalized weakness, strength equal bilaterally - Psychiatric Psychiatric: Present: A&O x's 3, appropriate affect, intact judgment & insight - Allied health notes Allied health notes reviewed: nursing - Labs CBC & Chem 7: 12/27/17 06:18 12/27/17 06:18 Labs: Abnormal Lab Results - Last 24 Hours (Table) 12/26/17 12/26/17 12/27/17 Range/Units 12:02 17:47 06:18 WBC (3.8-10.6) k/uL RBC (3.80-5.40) m/uL Hgb (11.4-16.0) gm/dL Hct (34.0-46.0) % MCHC (31.0-37.0) g/dL RDW (11.5-15.5) % Plt Count (150-450) k/uL Neutrophils # (1.3-7.7) k/uL Sodium 135 L (137-145) mmol/L BUN 25 H (7-17) mg/dL POC Glucose (mg/dL) 131 H 106 H (75-99) mg/dL Calcium 8.3 L (8.4-10.2) mg/dL Alkaline Phosphatase 394 H (38-126) U/L Total Protein 4.8 L (6.3-8.2) g/dL Albumin 2.1 L (3.5-5.0) g/dL 12/27/17 12/27/17 Range/Units 06:18 07:43 WBC 18.7 H (3.8-10.6) k/uL RBC 3.01 L (3.80-5.40) m/uL Hgb 8.3 L (11.4-16.0) gm/dL Hct 26.8 L (34.0-46.0) % MCHC 30.9 L (31.0-37.0) g/dL RDW 16.0 H (11.5-15.5) % Plt Count 486 H (150-450) k/uL Neutrophils # 15.8 H (1.3-7.7) k/uL Sodium (137-145) mmol/L BUN (7-17) mg/dL POC Glucose (mg/dL) 101 H (75-99) mg/dL Calcium (8.4-10.2) mg/dL Alkaline Phosphatase (38-126) U/L Total Protein (6.3-8.2) g/dL Albumin (3.5-5.0) g/dL - Imaging and Cardiology Chest x-ray: report reviewed, image reviewed Assessment and Plan (1) Coronary artery disease involving left main coronary artery Current Visit: Yes Status: Chronic Code(s): I25.10 - ATHSCL HEART DISEASE OF [place] CORONARY ARTERY W/O ANG PCTRS SNOMED Code(s): 588600325 (2) Hypertension Current Visit: Yes Status: Chronic Code(s): I10 - ESSENTIAL (PRIMARY) HYPERTENSION SNOMED Code(s): 39093306 (3) Hyperlipidemia Current Visit: Yes Status: Chronic Code(s): E78.5 - HYPERLIPIDEMIA, UNSPECIFIED SNOMED Code(s): 91317101 (4) Diabetes Current Visit: Yes Status: Chronic Code(s): E11.9 - TYPE 2 DIABETES MELLITUS WITHOUT COMPLICATIONS SNOMED Code(s): 06646599 (5) Peripheral vascular disease Current Visit: Yes Status: Chronic Code(s): I73.9 - PERIPHERAL VASCULAR DISEASE, UNSPECIFIED SNOMED Code(s): 532725765 (6) Family history of heart disease Current Visit: Yes Status: Chronic Code(s): Z82.49 - FAMILY HX OF ISCHEM HEART DIS AND OTH DIS OF THE CIRC SYS SNOMED Code(s): 663426717 (7) Tobacco dependence in remission Current Visit: No Status: Resolved Code(s): F17.201 - NICOTINE DEPENDENCE, UNSPECIFIED, IN REMISSION SNOMED Code(s): 915843456 (8) Hypothyroid Current Visit: Yes Status: Chronic Code(s): E03.9 - HYPOTHYROIDISM, UNSPECIFIED SNOMED Code(s): 95619751 (9) Syncopal episodes Current Visit: No Status: Chronic Code(s): R55 - SYNCOPE AND COLLAPSE SNOMED Code(s): 630386150 (10) History of DVT (deep vein thrombosis) Current Visit: No Status: Resolved Code(s): Z86.718 - PERSONAL HISTORY OF OTHER VENOUS THROMBOSIS AND EMBOLISM SNOMED Code(s): 170155825 (11) History of atrial fibrillation Current Visit: No Status: Resolved Code(s): Z86.79 - PERSONAL HISTORY OF OTHER DISEASES OF THE CIRCULATORY SYSTEM SNOMED Code(s): 658973429 (12) Chronic low back pain Current Visit: Yes Status: Chronic Code(s): M54.5 - LOW BACK PAIN; G89.29 - OTHER CHRONIC PAIN SNOMED Code(s): 925037792 (13) Depression Current Visit: Yes Status: Chronic Code(s): F32.9 - MAJOR DEPRESSIVE DISORDER, SINGLE EPISODE, UNSPECIFIED SNOMED Code(s): 86827689 Plan: 1. Continue low-dose aspirin, statin, Plavix, hydralazine, beta sheree, Catapres, Norvasc. 2. Bronchodilators per pulmonology. 3. Continue amiodarone for A. fib prophylaxis. Will decrease to 200 mg daily today. 4. Continue meropenem, Eraxis for [address] Mccartney. 5. Advance diet per general surgery. 6. Continue IV Lasix. 7. Keep Almaguer for strict accurate I and O's, urinary retention. 8. Left pleural effusion present. Left sided thoracentesis per Dr. Chavez. 9. Monitor daily labs, chest x-rays. 10. GI prophylaxis with IV Protonix. DVT prophylaxis with subcu heparin, SCDs. 11. Pain control with current medication regimen. 12. Insulin/diabetic management per primary care. 13. Wound VAC per general surgery to abdominal incisions. To be changed Monday , Monday, Monday. 14. Increase activity, ambulate in hallway. PT/OT/cardiac rehab following. 15. Will place transfer orders to [facility]. [facility] care today. 16. More recommendations to follow based on patient's clinical course. Time with Patient: Greater than 30
[2017-12-27] MEDS: METOPROLOL TARTRATE 25 MG TAB PO SCH ×2 (08:45→21:48)
[2017-12-27] MEDS: FUROSEMIDE 10 MG/ML 2 ML VIAL IV SCH ×2 (08:45→21:47)
[2017-12-27] MEDS: CLOPIDOGREL 75 MG TAB PO SCH (08:45)
[2017-12-27] MEDS: ATORVASTATIN 40 MG TAB PO SCH (08:46)
[2017-12-27] MEDS: ASPIRIN 81 MG PO SCH (08:46)
[2017-12-27] MEDS: DULoxetine HCL 60 MG CAPSULE.DR PO SCH (08:46)
[2017-12-27] MEDS: AMIODARONE 200 MG TAB PO SCH ×2 (08:46→10:11)
[2017-12-27] MEDS: ANIDULAFUNGIN 100 MG in SODIUM CHLORIDE 0.9% 100 ML IVPB SCH (08:46)
[2017-12-27] MEDS: PANTOPRAZOLE 40 MG/10 ML VIAL IVP SCH (08:47)
--- NOTE | 2017-12-27 09:32 | XR ---
EXAMINATION TYPE: XR chest 1V portable DATE OF EXAM: 12/27/2017 COMPARISON: 12/26/2017 INDICATION: Post cardiac surgery TECHNIQUE: Single frontal view of the chest is obtained. FINDINGS: The heart size is normal. The pulmonary vasculature is normal. Mild infiltrates at the left lower lobe. Small left pleural effusion may be present. Findings are sta ble. The endotracheal tube is been removed. IMPRESSION: 1. Left lower lobe infiltrate and left pleural effusion, stable
[2017-12-27] MEDS: hydrALAZINE HCL 10 MG TAB PO SCH ×2 (10:11→21:47)
[2017-12-27] MEDS: MEROPENEM 2 GM in SODIUM CHLORIDE 0.9% 100 ML IVPB SCH ×2 (10:42→21:47)
[2017-12-27] MEDS: PIPERACILLIN-TAZOBACTAM 3.375 GM in DEXTROSE/WATER 1 50ML.BAG IVPB SCH (11:08)
[2017-12-27] MEDS: METOPROLOL TARTRATE 50 MG TAB PO SCH (11:08)
--- NOTE | 2017-12-27 11:39 | P.PN ---
Subjective Progress Note Date: 12/27/17 Principal diagnosis: Status post CABG, status post right colectomy for acute perforated viscus and necrosis of the transverse and right colon. On today's evaluation of a 12/18/2017 Carolyn is back to the intensive care unit. She is postop day #7 following her coronary artery bypass surgery. She got transferred because of an extensive liquidy/watery diarrhea which left her into a dehydrated state and causes some non-anion gap metabolic acidosis. Her bicarb level is down to 14. She had 3 additional liquidy bowel movements this morning. The patient was seen by general surgery. CAT scan of the abdomen was done raising the possibility of an underlying ischemic colitis. She was placed on accommodation Zosyn and vancomycin. No fever or chills. She also had gone into atrial fibrillation. The rate is controlled right now with metoprolol and amiodarone and the patient is also on IV heparin. She is complaining of pain throughout her chest and body mainly in the joints and she has been taken hydrocodone outpatient basis. I restarted her on Hardtner 5 every 6 hours for pain control pH is using incentive spirometer. She is on IV fluids and she'll be started on a bicarb drip. The patient's chest x-ray from today showed small bilateral pleural effusion and basilar atelectasis and left lung base. There is also artifact from external objects on the chest x-ray. The postoperative echocardiogram showed a preserved LV function with an ejection fraction of 50-55 %. No valvular abnormalities noted. On today's evaluation of 12/19/2017, the patient is awake and alert and sitting up on a chair. The diarrhea has subsided significantly. She only had liquidy loose bowel movement there was small amount this morning. Otherwise, the patient is was resuscitated IV fluids. The patient received a bicarb infusion yesterday and her serum bicarb normalizes and earlier this morning associated to a normal saline infusion at the rate of 75 mL an hour. Her urine output is around 20-25 mL an hour. The patient's creatinine is normal. BUN is down to 7. Vascular electrodes are all within normal limits and her bicarb level is normalized. No nausea. No vomiting. No abdominal pain. She is taking clear liquid diet. No chest pain. Chest x-ray shows some mild pulmonary vascular congestion and atelectatic changes in lung bases bilaterally. She is on room air oxygen. Sternum stable clean and intact. She has E. coli in the urine and she is on IV Zosyn. Vancomycin was discontinued. IV heparin was discontinued. Her current rhythm is sinus. On 12/20/2017 the patient developed some vague abdominal pain. This pain started approximately 4 AM in the morning. As mentioned earlier the patient is postop from coronary artery bypass surgery and she is postop day #8. The patient is currently in the intensive care unit. X-ray of the chest was done this morning and it showed free air under the diaphragm. This is consistent with pneumoperitoneum and the patient will need further investigation. Immediately the general surgeon was contacted and the patient had a CAT scan of the abdomen and it showed moderate pneumoperitoneum with site of the perforation i not identified although there was suspicion that maybe the distal stomach/duodenal area. The patient currently on IV Zosyn. No cervical leukocytosis. Urine output is dropped down to 20 mL an hour. Her white count from this morning's at 14.3. Patient be taken to the operating room for an expected laparotomy. No altered mentation. No cough or sputum production. No other complaints otherwise for now. On 12/21/2017 I'm seeing this patient for a follow-up. She is a critically ill female patient was taken to the operating room yesterday for an acute bowel perforation. The patient was found to have pneumoperitoneum and the patient was taken to the operating room and the patient underwent expiratory laparotomy and right colectomy and transverse colectomy and takedown of splenic flexure and diverticular colostomy. The patient intraoperatively was found to have necrosis of the transverse colon and the right colon. Postop, the patient was kept intubated and the patient was moved to the intensive care unit for further evaluation and management. Overnight the patient was given fluid aggressively. She was given IV albumin. She was given lactated Ringer solution and normal saline solution. She did drop her pressure and she had also to placed on pressors and she is currently on 3-4 mics of norepinephrine infusion to maintain a mean artery pressure above 65. This morning I give her another liter of lactated Ringer and nontender albumin 5% to bring her CVP above 12. Hemoglobin dropped down to 6.7. Her white count came up to 31.4 and subsequently dropped down to 23. This is expected as the patient had a bowel necrosis and intra-abdominal sepsis. Antibiotic dressings were done and the patient was placed on Merrem and Eraxis. Earlier this morning the patient was on assist-control mode of ventilation and was obvious that the patient was asynchronous and double stacking on a mechanical ventilator. This was occurring even while on 40 mics of Diprivan infusion. Based on this, necessary vent changes were done. The patient was air hungry and she was taken significantly high tidal volumes. I was able to bring the tidal volume of 600 and the rate of 18 with a FiO2 of 40% and a PEEP of 5. Chest x-ray from today showed that the patient had adequate expansion of both lungs. There is a left- sided pleural effusion and ET tube is around 3-4 cm above the al. The net fluid balance over the past 24 hours is +6 L in the urine output is adequate for now. The patient is afebrile. On 12/22/2017 I'm seeing this patient for a follow-up. Note that the patient is postop day #2 following chest was colectomy, right colectomy and ileostomy and the patient is postop day #11 following her coronary artery bypass surgery. This morning the patient was sedated with Diprivan and she was calm and comfortable. Despite being on Diprivan, the patient was easily arousable. She was maintained on assist control mode of ventilation. Throughout the night the patient was an assist-control at the rate of 20 with a tidal volume of 600 and FiO2 of 40% and PEEP of 5. Chest x-ray showing the development of a left-sided pleural effusion. ET tube is in a good location. Rest of the lungs are all in good location is. NG tube is also in place. The blood gases from this morning showed a pH of 7.42 with a pCO2 of 26 and pO2 of 100. No significant orotracheal secretions. Hemodynamically, the patient was aggressively resuscitated IV fluids. She is in a positive fluid balance in order of 6 L at least and the patient was taken off pressors and she's been off the norepinephrine infusion for now. She is producing adequate amount of urine output. She does have a component of non-anion gap metabolic acidosis with a bicarb level of 16. Renal function stable with a creatinine of 0.9. Rest of the electrolytes are all within normal limits. Her white cell count peaked at 27.5 and currently is down to 25. She remains on a broad-spectrum antibiotics including IV Merrem and Ecaris. The cardiac rhythm remains sinus. CVP is somewhat between 10 and 13. Urine output is order of 30-40 mL an hour. Angiopathy was noted. There is also minimal amount of liquidy material within the ileostomy back. Surgical wound site is open and a superior and inferior portion and the wound VAC will be applied to that area. There is no active drainage at this point in time. Based on all this, I give the patient is sedation holiday. She woke up very nicely and she was able to follow commands and answers questions appropriately. Weaning parameters were checked and the patient had a tidal volume of 510 with a vital capacity of 780 within this of 27 and the rapid shallow breathing index of 34. She was given a CPAP trial and following that the patient was extubated to a nasal cannula pH is tolerated extubation without any major difficulties. At this point in time, the patient is extubated, she is following commands and answering questions appropriately. Family is at the bedside. On 12/23/2017, the patient remains extubated. She is postop day #3 following a right colectomy, transverse colectomy and ileostomy and she is postop day #12 following her coronary artery bypass surgery. I was able to wean the patient off the mechanical ventilator and she extubated very nicely without having any major difficulties and currently is on 2 L of oxygen by nasal cannula. Her chest x-ray continues to show a large left-sided pleural effusion. Earlier this morning he was given 40 mg of IV Lasix which improved her urine function and output and the patient is producing more than 50 mL of urine output on hourly basis. She is nothing by mouth. NG tube is in place. Her CVP remains somewhere between 11 and 18. She is producing up to 50 mL of urine output on hourly basis. Rule out able to apply wound VAC to her abdominal wall wound and the open incisions are well covered and she is producing approximately 600 mL of material from the wound VAC system was inserted yesterday. Sternum is stable clean and intact. She is weak and a bit lethargic, slightly worse compared to yesterday and this is probably attributed to her inability to fall asleep throughout the night. No active pain. She is weak. She denies having any specific complaints for now. TPN was started as the patient's pre-albumin and albumin and total protein is extremely low. Serum bicarb is gradually improving is up to 19. On 12/24/2017, the patient is awake and alert and she is postop day #4 from her bowel surgery and postop day #13 from her cardiac surgery. She is awake and alert and she is communicating. She is on 2 L about 2 by nasal cannula. No respiratory distress. She is diuresing and the chest x-ray shows improvement in the volume status and the patient was started on IV Lasix today. She was already producing approximately 40-50 mL an hour of urine output. NG tube is in place and output has been 100 mL over the past 24 hours. The patient has approximately 120cc of output and had ileostomy site. The wound VAC is also in place and the output has been not considerably high. She is doing well. Cardiac rhythm remains in normal sinus mechanism. The patient has TPN for nutritional support. Hemodynamically stable. No hypotension. No pressors requirements. No other significant events overnight. No altered mentation. On 12/25/2017, patient is postoperative day #5 from her bowel surgery, and postoperative day #14 from cardiac surgery. Patient is doing well, she is on 2 L nasal cannula, in no form of distress. Sitting at a bedside chair, asymptomatic. Chest x-ray is suggestive of a good sized left-sided pleural effusion, hence I recommended ultrasound of the chest to be done, may require left-sided thoracentesis. The ultrasound did show good sized left-sided pleural effusion, and I think I will recommend thoracentesis in the next 24 hours. All labs were reviewed including his CBC and renal profile. Clinically the patient is actually doing well. On 12/26/2017, patient is postoperative day #6 from her bowel surgery and postoperative day #15 from cardiac surgery. Remains on 2 L nasal cannula, in no distress, chest x-ray is showing improvement in her bilateral pleural effusions especially the left one. I was planning thoracentesis done the patient today, but considering the patient has excellent urine output, and the pleural effusion seems to be better, will cancel plans for left-sided thoracentesis today. Labs were reviewed, relatively normal electrolytes, and a relatively normal CBC except for hemoglobin of 7.8 which seems to be holding. Patient is asymptomatic, denies any shortness of breath no cough no wheezing no chest pain. No nausea no vomiting no abdominal pain. Her nasogastric tube was pulled out today. We'll start on clear liquids. Reevaluated today on 12/27/2017, patient is postoperative day #7. From her bowel surgery and postoperative day #16 from cardiac surgery. On 2 L nasal cannula, asymptomatic, chest x-ray is basically about the same, small left- sided pleural effusion is noted. Patient is asymptomatic. Labs were reviewed WBC count is 18.7 hemoglobin 8.3 basic metabolic profile is normal renal profile is normal. Objective - Vital Signs Vital signs: Vital Signs Temp 98.0 F 12/27/17 08:00 Pulse 87 12/27/17 10:00 Resp 16 12/27/17 10:00 BP 109/65 12/27/17 10:00 Pulse Ox 100 12/27/17 10:00 Intake & Output 12/26/17 12/27/17 12/27/17 18:59 06:59 18:59 Intake Total 585 100 440 Output Total 1105 770 320 Balance -520 -670 120 Weight 99.4 kg 94.6 kg Intake: IV 435 100 200 Amino Acid 5%-D15w+Lytes* 150 E* 1,000 ml @ 60 mls/hr IV .BY DURATION WILLIAM Rx#: [id number] Anidulafungin 200 mg In 200 Sodium Chloride 0.9% 200 ml @ 84 mls/hr IVPB ONCE ONE Rx#:[id number] Fat Emulsion 20% 250 ml 21 In Empty Bag 1 bag @ 21 mls/hr IV DAILY@1600 WILLIAM Rx#:[id number] Meropenem 2 gm In Sodium 100 100 Chloride 0.9% 100 ml @ 200 mls/hr IVPB Q12HR WILLIAM Rx#:[id number] Potassium Chloride 20 meq 100 In Water For Injection 1 100ml.bag @ 50 mls/hr IVPB Q2H WILLIAM Rx#: [id number] Pressure Bags 24 Sodium Chloride 0.9% 500 40 ml @ 20 mls/hr IV .Q24H WILLIAM Rx#:[id number] Intake, IV Titration 150 Amount Anidulafungin 100 mg In 130 Sodium Chloride 0.9% 100 ml @ 84 mls/hr IVPB DAILY WILLIAM Rx#:[id number] Sodium Chloride 0.9% 1, 20 000 ml @ 20 mls/hr IV . Q24H WILLIAM Rx#:[id number] Oral 240 Output: Urine 1105 770 320 Other: Voiding Method Indwelling Catheter Indwelling Catheter ABP, PAP, CO, CI - Last Documented Arterial Blood Pressure 159/93 Pulmonary Artery Pressure 4/4 Cardiac Output 4.5 Cardiac Index 2.5 - Exam Physical Exam: Revealed a 72-year-old female in no distress. Head: Atraumatic, normocephalic. On 2 L nasal cannula HEENT:[Neck is supple.] [No neck masses.] [No thyromegaly.] [No JVD.] Nasogastric tube was noted but it was removed shortly after. Chest: [Diminished breath sounds at the bases, no crackles or rhonchi or wheezes..] Cardiac Exam: [Normal S1 and S2, no S3 gallop, no murmur.] Abdomen: [Soft, nontender, no megaly, no rebound, no guarding, hypoactive bowel sounds, right lower quadrant ileostomy noted with dark brown liquid drainage. Approximately 35 mL output overnight. Extremities: [No clubbing, 1+ bipedal edema, no cyanosis.] Neurological Exam: [No focal neurologic deficit.] Psychiatric: Normal mood affect and mental status examination. - Labs CBC & Chem 7: 12/27/17 06:18 12/27/17 06:18 Labs: Abnormal Lab Results - Last 24 Hours (Table) 12/26/17 12/26/17 12/27/17 Range/Units 12:02 17:47 06:18 WBC (3.8-10.6) k/uL RBC (3.80-5.40) m/uL Hgb (11.4-16.0) gm/dL Hct (34.0-46.0) % MCHC (31.0-37.0) g/dL RDW (11.5-15.5) % Plt Count (150-450) k/uL Neutrophils # (1.3-7.7) k/uL Sodium 135 L (137-145) mmol/L BUN 25 H (7-17) mg/dL POC Glucose (mg/dL) 131 H 106 H (75-99) mg/dL Calcium 8.3 L (8.4-10.2) mg/dL Alkaline Phosphatase 394 H (38-126) U/L Total Protein 4.8 L (6.3-8.2) g/dL Albumin 2.1 L (3.5-5.0) g/dL 12/27/17 12/27/17 Range/Units 06:18 07:43 WBC 18.7 H (3.8-10.6) k/uL RBC 3.01 L (3.80-5.40) m/uL Hgb 8.3 L (11.4-16.0) gm/dL Hct 26.8 L (34.0-46.0) % MCHC 30.9 L (31.0-37.0) g/dL RDW 16.0 H (11.5-15.5) % Plt Count 486 H (150-450) k/uL Neutrophils # 15.8 H (1.3-7.7) k/uL Sodium (137-145) mmol/L BUN (7-17) mg/dL POC Glucose (mg/dL) 101 H (75-99) mg/dL Calcium (8.4-10.2) mg/dL Alkaline Phosphatase (38-126) U/L Total Protein (6.3-8.2) g/dL Albumin (3.5-5.0) g/dL Assessment and Plan Assessment: #1. Multivessel coronary artery disease, involving left main coronary artery. Status post bypass grafting and surgery was done 12/11/2017 and the patient is postop day #16 #2. Acute perforated viscus with necrosis of the transverse and right colon and the patient is status post right colectomy, transverse colectomy and takedown of splenic flexure with diabetic ileostomy. Postoperative day #7 #3. Acute hypoxic respiratory failure secondary to above. Extubated to a 2 L of oxygen by nasal cannula and the patient has a small left-sided pleural effusion, no plans to do thoracentesis . #4. Acute hypotension, resolved #5. Atrial fibrillation, and expected outcome of surgery , back to sinus #6. Peripheral vascular disease #7. History of nicotine dependence, currently in remission, quit 10 years ago, carries [id number] smoking history #8. Hypothyroidism #9. Diabetes mellitus type 2 #10. Chronic low back pain #11. Depression #12 obesity with a BMI of 34.3 #13 leukocytosis #14 anemia and expected outcome of surgery, #15 hyperlipidemia #16 leukocytosis, improving and the white cell count is down to 14.7 #17 non-anion gap metabolic acidosis, resolved #18 left-sided pleural effusion improving, no need for thoracentesis. #19 severe hypoproteinemia and hyperlipidemia initiated oral feeding. Recommendation: Continue present supportive care measures, will continue to follow. Time with Patient: Less than 30
[2017-12-27 11:59] LABS: Glucose,Whole Blood 110 mg/dL (75-99)
--- NOTE | 2017-12-27 12:18 | P.PN ---
Subjective Progress Note Date: 12/27/17 This is 72-year-old female status post bypass surgery for left main disease. Patient has been having abdominal discomfort. She seemed to have colitis. She is having diarrhea. No complaints of any chest pain. He patient is maintaining sinus rhythm. Also having some problems with urination, urinary retention. From [facility] standpoint we'll continue current medical therapy 12/17/2017: The patient continues to be agitated. He still complains of back pain and leg pain. Computed tomography scan of the abdomen showed evidence of colitis. She is not having any diarrhea. Patient is being treated for UTI and colitis with antibiotics. Her echocardiogram showed preserved LV function without any significant valvular abnormalities. We'll continue with current management. Prognosis is guarded. 12/18/2017: The patient is still complaining of abdominal pain and generalized body pain. Hemodynamically stable. Continues to have diarrhea. Blood pressure is stable. No arrhythmias are noted. Patient may need a better pain management. From [facility] standpoint we'll continue current medical therapy. 12/19/2017: Patient is feeling better today. She is in less pain. Her diarrhea is improved. Patient in the chair seemed to be cheerful. Remains in sinus rhythm. No arrhythmias are detected. Her bicarbonate is corrected. There is a possibility that patient may be moving to telemetry. 12/20/2017: This patient apparently developed abdominal pain last night. Chest x-ray this morning showed evidence of pneumoperitoneum. Subsequent CAT scan also showed moderate pneumoperitoneum. It was felt was secondary to a ruptured viscus probably duodenum. Patient doesn't have any other complaints. Appear to be in sinus rhythm. Patient is taken to the operating room by the surgeon for exploratory laparotomy. 12/25/2017: This patient is status post aortic coronary bypass surgery. 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 Patient is clinically doing well. Chest x-ray showed a pleural effusion on the left side. Dr. Rod is going to pleurocentesis probably within next 24 hours. Cardiac was patient is maintaining sinus rhythm. Blood pressure is running high. I'm going to add Norvasc 5 mg. Rest of the medication to be continued. 12/26/2017: The patient is feeling much better today. Diet has been advanced. Denies any chest pain or shortness of breath. Overall her clinical status is stable. We'll continue current medical therapy. Increase activity as tolerated. 12/27/2017: This patient's seemed to be getting better and stronger. Able to eat more today. Hemodynamically stable. Tolerating food urine output is good. Patient is being transferred to telemetry unit. Patient may need a long-term rehabilitation. Otherwise she seemed to be clinically stable. Objective - Vital Signs Vital signs: Vital Signs Temp 98.0 F 12/27/17 08:00 Pulse 74 12/27/17 11:59 Resp 16 12/27/17 10:00 BP 109/65 12/27/17 10:00 Pulse Ox 100 12/27/17 10:00 Intake & Output 12/26/17 12/27/17 12/27/17 18:59 06:59 18:59 Intake Total 585 100 440 Output Total 1105 770 320 Balance -520 -670 120 Weight 99.4 kg 94.6 kg Intake: IV 435 100 200 Amino Acid 5%-D15w+Lytes* 150 E* 1,000 ml @ 60 mls/hr IV .BY DURATION WILLIAM Rx#: [id number] Anidulafungin 200 mg In 200 Sodium Chloride 0.9% 200 ml @ 84 mls/hr IVPB ONCE ONE Rx#:[id number] Fat Emulsion 20% 250 ml 21 In Empty Bag 1 bag @ 21 mls/hr IV DAILY@1600 WILLIAM Rx#:[id number] Meropenem 2 gm In Sodium 100 100 Chloride 0.9% 100 ml @ 200 mls/hr IVPB Q12HR WILLIAM Rx#:[id number] Potassium Chloride 20 meq 100 In Water For Injection 1 100ml.bag @ 50 mls/hr IVPB Q2H WILLIAM Rx#: [id number] Pressure Bags 24 Sodium Chloride 0.9% 500 40 ml @ 20 mls/hr IV .Q24H WILLIAM Rx#:[id number] Intake, IV Titration 150 Amount Anidulafungin 100 mg In 130 Sodium Chloride 0.9% 100 ml @ 84 mls/hr IVPB DAILY WILLIAM Rx#:[id number] Sodium Chloride 0.9% 1, 20 000 ml @ 20 mls/hr IV . Q24H WILLIAM Rx#:[id number] Oral 240 Output: Urine 1105 770 320 Other: Voiding Method Indwelling Catheter Indwelling Catheter ABP, PAP, CO, CI - Last Documented Arterial Blood Pressure 159/93 Pulmonary Artery Pressure 4/4 Cardiac Output 4.5 Cardiac Index 2.5 - Exam Physical exam. Not available. Patient was in the Skin and subsequently taken to the operating room 12/25/2017: Patient is alert and oriented. No acute distress. Patient is sitting in the chair. . Heart is regular. Lungs show diminished breath sounds especially on the left side. Abdomen is postsurgical. - Labs CBC & Chem 7: 12/27/17 06:18 12/27/17 06:18 Labs: Abnormal Lab Results - Last 24 Hours (Table) 12/26/17 12/27/17 12/27/17 Range/Units 17:47 06:18 06:18 WBC 18.7 H (3.8-10.6) k/uL RBC 3.01 L (3.80-5.40) m/uL Hgb 8.3 L (11.4-16.0) gm/dL Hct 26.8 L (34.0-46.0) % MCHC 30.9 L (31.0-37.0) g/dL RDW 16.0 H (11.5-15.5) % Plt Count 486 H (150-450) k/uL Neutrophils # 15.8 H (1.3-7.7) k/uL Sodium 135 L (137-145) mmol/L BUN 25 H (7-17) mg/dL POC Glucose (mg/dL) 106 H (75-99) mg/dL Calcium 8.3 L (8.4-10.2) mg/dL Alkaline Phosphatase 394 H (38-126) U/L Total Protein 4.8 L (6.3-8.2) g/dL Albumin 2.1 L (3.5-5.0) g/dL 12/27/17 12/27/17 Range/Units 07:43 11:57 WBC (3.8-10.6) k/uL RBC (3.80-5.40) m/uL Hgb (11.4-16.0) gm/dL Hct (34.0-46.0) % MCHC (31.0-37.0) g/dL RDW (11.5-15.5) % Plt Count (150-450) k/uL Neutrophils # (1.3-7.7) k/uL Sodium (137-145) mmol/L BUN (7-17) mg/dL POC Glucose (mg/dL) 101 H 110 H (75-99) mg/dL Calcium (8.4-10.2) mg/dL Alkaline Phosphatase (38-126) U/L Total Protein (6.3-8.2) g/dL Albumin (3.5-5.0) g/dL Assessment and Plan (1) Colitis Current Visit: Yes Status: Acute Code(s): K52.9 - NONINFECTIVE GASTROENTERITIS AND COLITIS, UNSPECIFIED SNOMED Code(s): 62357982 (2) Diarrhea in adult patient Current Visit: Yes Status: Acute Code(s): R19.7 - DIARRHEA, UNSPECIFIED SNOMED Code(s): 78260074 (3) Urinary tract infection Current Visit: Yes Status: Acute Code(s): N39.0 - URINARY TRACT INFECTION, SITE NOT SPECIFIED SNOMED Code(s): 36012055 (4) Coronary artery disease involving left main coronary artery Current Visit: Yes Status: Chronic Code(s): I25.10 - ATHSCL HEART DISEASE OF [place]TE CORONARY ARTERY W/O ANG PCTRS SNOMED Code(s): 945240918 (5) Depression Current Visit: Yes Status: Chronic Code(s): F32.9 - MAJOR DEPRESSIVE DISORDER, SINGLE EPISODE, UNSPECIFIED SNOMED Code(s): 25884481 (6) Pneumoperitoneum Current Visit: Yes Status: Acute Code(s): K66.8 - OTHER SPECIFIED DISORDERS OF PERITONEUM SNOMED Code(s): 91351780 Plan: Patient is hemodynamically stable. Clinically feeling better. Maintaining normal vital signs. Patient will continue current medical therapy. 12/27/2017: Patient is clinically stronger. Able to tolerate diet hemodynamically stable. Increase activity. Patient is being transferred to telemetry
[2017-12-27] MEDS: ACETAMINOPHEN TAB 325 MG TAB PO PRN (13:33)
[2017-12-27] MEDS: CYANOCOBALAMIN 500 MCG TAB PO SCH (13:33)
[2017-12-27] MEDS: FERROUS SULFATE 325 MG TAB PO SCH (13:33)
[2017-12-27] MEDS: ASCORBIC ACID 500 MG TAB PO SCH (13:33)
[2017-12-27] MEDS: amLODIPine 5 MG TAB PO SCH (13:33)
[2017-12-27 17:12] LABS: Glucose,Whole Blood 131 mg/dL (75-99)
[2017-12-27 20:34] LABS: Glucose,Whole Blood 107 mg/dL (75-99)
--- NOTE | 2017-12-27 22:22 | P.PN ---
Subjective Progress Note Date: 12/27/17 Principal diagnosis: Ischemic colitis Patient denies pain. Tolerating full liquids presently. Good ostomy function. White blood cell count remains slightly elevated. Objective - Vital Signs Vital signs: Vital Signs Temp 98.5 F 12/27/17 21:00 Pulse 83 12/27/17 22:00 Resp 20 12/27/17 22:00 BP 133/62 12/27/17 22:00 Pulse Ox 94 L 12/27/17 22:00 Intake & Output 12/27/17 12/27/17 12/28/17 06:59 18:59 06:59 Intake Total 100 1220 120 Output Total 770 1335 305 Balance -670 -115 -185 Weight 94.6 kg Intake: IV 100 300 Anidulafungin 200 mg In 200 Sodium Chloride 0.9% 200 ml @ 84 mls/hr IVPB ONCE ONE Rx#:[id number] Meropenem 2 gm In Sodium 100 100 Chloride 0.9% 100 ml @ 200 mls/hr IVPB Q12HR [facility] Rx#:[id number] Oral 920 120 Output: Urine 770 935 305 Stool 400 Other: Voiding Method Indwelling Catheter Indwelling Catheter ABP, PAP, CO, CI - Last Documented Arterial Blood Pressure 159/93 Pulmonary Artery Pressure 4/4 Cardiac Output 4.5 Cardiac Index 2.5 - Exam Abdomen: Soft, nondistended, wounds evaluated with the wound care team and appear clean, fascia is intact - Labs CBC & Chem 7: 12/27/17 06:18 12/27/17 06:18 Labs: Abnormal Lab Results - Last 24 Hours (Table) 12/27/17 12/27/17 12/27/17 Range/Units 06:18 06:18 07:43 WBC 18.7 H (3.8-10.6) k/uL RBC 3.01 L (3.80-5.40) m/uL Hgb 8.3 L (11.4-16.0) gm/dL Hct 26.8 L (34.0-46.0) % MCHC 30.9 L (31.0-37.0) g/dL RDW 16.0 H (11.5-15.5) % Plt Count 486 H (150-450) k/uL Neutrophils # 15.8 H (1.3-7.7) k/uL Sodium 135 L (137-145) mmol/L BUN 25 H (7-17) mg/dL POC Glucose (mg/dL) 101 H (75-99) mg/dL Calcium 8.3 L (8.4-10.2) mg/dL Alkaline Phosphatase 394 H (38-126) U/L Total Protein 4.8 L (6.3-8.2) g/dL Albumin 2.1 L (3.5-5.0) g/dL 12/27/17 12/27/17 12/27/17 Range/Units 11:57 17:10 20:32 WBC (3.8-10.6) k/uL RBC (3.80-5.40) m/uL Hgb (11.4-16.0) gm/dL Hct (34.0-46.0) % MCHC (31.0-37.0) g/dL RDW (11.5-15.5) % Plt Count (150-450) k/uL Neutrophils # (1.3-7.7) k/uL Sodium (137-145) mmol/L BUN (7-17) mg/dL POC Glucose (mg/dL) 110 H 131 H 107 H (75-99) mg/dL Calcium (8.4-10.2) mg/dL Alkaline Phosphatase (38-126) U/L Total Protein (6.3-8.2) g/dL Albumin (3.5-5.0) g/dL Assessment and Plan (1) Ischemic colitis Narrative/Plan: Continue local wound care. Continue advancing diet. Monitor leukocytosis. Current Visit: Yes Status: Acute Code(s): K55.9 - VASCULAR DISORDER OF INTESTINE, UNSPECIFIED SNOMED Code(s): 59583685
--- NOTE | 2017-12-27 23:01 | P.PN ---
Subjective Progress Note Date: 12/27/17 This is a 72-year-old female patient who initially underwent a stress test that was positive followed by a heart catheterization that showed significant disease in the left main, mid LAD and ostial circumflex. She then underwent an urgent CABG 4 vessel on December 11. Patient seems to have been recovering well until yesterday. She was noted to develop a fever of 102.6, lactic acid was 2.3 and also liver enzymes elevated. She had been treated for E. coli urinary tract infection that was present on admission with Rocephin. Her antibiotics were then changed to Zosyn and vancomycin. Patient also had some hypersomnolence and confusion yesterday for which her narcotics were changed from oxycodone which she chronically takes for back pain and switched to [place] every 6, IV Tylenol and Toradol and patient continues to have significant back pain. She denies chest pain, shortness of breath, nausea or vomiting. She denies any diarrhea. She does have decreased appetite which is been going on since admission. She states that she feels better from yesterday and recognizes that she was lethargic yesterday. Today. she has been up for shower and has had a bowel movement. Patient had low urine output yesterday and received a dose of Lasix. She had a CAT scan of the brain that showed cerebral atrophy and chronic small vessel ischemia. No acute intracranial process. She states that she was coughing a lot this morning but no denies shortness of breath. Chest x-ray from this morning shows minimal pulmonary vascular congestion cannot be exaggerated by low lung volumes in addition to persistent unchanged retrocardiac airspace disease, likely atelectasis and trace pleural effusions. Patient was using incentive spirometer 2000 mL she yesterday. She has had no significant wound concerns. Chest tubes and Almaguer are out. Patient denies any burning or pain with urination. . Now back in the intensive care unit she's had some abdominal pain and with worsening of her status including lactic acidosis to was concerns to ischemic colitis. She has been seen by surgery is being closely followed. She is on antimicrobial therapy with piperacillin tazobactam and vancomycin which would give coverage for ischemic colitis. Severe back pain is modestly controlled at this time. Patient is given a fluid bolus it appears that her lactic acid has dropped from 3.5-1.0. Fluids were also changed from lactated Ringer's to D5/ 0.45% NaCl with 20 mEq of KCl 12/18/2017 patient is sitting up in the chair looking considerably better. She has some clear liquids that she is able to ingest. Abdominal pain is improved. She is not having further fever or hypotension. Lactic acid is improved 12/21/2017 the patient had a significant change of her status and was found evidence of a perforated viscus and consequently the operating room yesterdaywhere exploratory laparotomy was performed, there is evidence of necrosis the transverse colon and of the right colon and consequently colectomy was performed in ileostomy was placed. Postoperatively the patient is now having some improvement. Vasopressor therapy has been held. Oxygenation is stable and she has no new complication. 12/22/2017 patient has had some improvement today that she is extubated and is stable after this has occurred. She is in no vasopressor therapy, has adequate oxygenation and urinary output. He is receiving some peripheral nutrition while her gastrointestinal function recovers. December 24 2017 patient continues to have improvement. Doing well extubated and off vasopressor therapy. Is awaiting recovery of her gastrointestinal function. Abdominal pain is minimal. She's been up in the chair without difficulties and is doing well with her incentive spirometry. 12/25/2017 and further improvement. She's been able to maintain her extubated status and other than complaints of ongoing severe back pain that has been a long-standing problem continued to have improvement. Initially her pain is worse today than yesterday. Primary service is trying to reduce her medications. 12/27/2017 patient has further improvement. Pain is more comfortable today. Less complaints of pain. Padded well sitting up in a chair. Breathing is going well and is denying much discomfort at this time. Objective - Vital Signs Vital signs: Vital Signs Temp 98.5 F 12/27/17 21:00 Pulse 83 12/27/17 22:00 Resp 20 12/27/17 22:00 BP 133/62 12/27/17 22:00 Pulse Ox 94 L 12/27/17 22:00 Intake & Output 12/27/17 12/27/17 12/28/17 06:59 18:59 06:59 Intake Total 100 1220 120 Output Total 770 1335 305 Balance -670 -115 -185 Weight 94.6 kg Intake: IV 100 300 Anidulafungin 200 mg In 200 Sodium Chloride 0.9% 200 ml @ 84 mls/hr IVPB ONCE ONE Rx#:[id number] Meropenem 2 gm In Sodium 100 100 Chloride 0.9% 100 ml @ 200 mls/hr IVPB Q12HR [facility] Rx#:[id number] Oral 920 120 Output: Urine 770 935 305 Stool 400 Other: Voiding Method Indwelling Catheter Indwelling Catheter ABP, PAP, CO, CI - Last Documented Arterial Blood Pressure 159/93 Pulmonary Artery Pressure 4/4 Cardiac Output 4.5 Cardiac Index 2.5 - Exam Gen: This is a 72-year-old female. supine she is extubated and comfortable HEENT: Head is atraumatic, normocephalic. Pupils equal, round. Sclerae is anicteric. Mucous members of the mouth are moist. NECK: Supple. No JVD. No lymphadenopathy. No thyromegaly. LUNGS: Clear to auscultation. No wheezes or rhonchi. No intercostal retractions. HEART: Regular rate and rhythm. No murmur. Sternal wound is intact. No significant drainage, erythema. ABDOMEN: recent surgery ileostomy in place large amount of bilious material is noted. Bowel sounds are quiet. EXTREMITIES: No pedal edema. Wound and left lower extremity shows no signs of infection. No drainage, significant erythema or edema. NEUROLOGICAL: Patient is awake alert and interactive Skin the surgical site the chest wall is intact without erythema crepitance or fluctuance vein harvest site is intact.abdominal incision has serous drainage. - Labs CBC & Chem 7: 12/27/17 06:18 12/27/17 06:18 Labs: Abnormal Lab Results - Last 24 Hours (Table) 12/27/17 12/27/17 12/27/17 Range/Units 06:18 06:18 07:43 WBC 18.7 H (3.8-10.6) k/uL RBC 3.01 L (3.80-5.40) m/uL Hgb 8.3 L (11.4-16.0) gm/dL Hct 26.8 L (34.0-46.0) % MCHC 30.9 L (31.0-37.0) g/dL RDW 16.0 H (11.5-15.5) % Plt Count 486 H (150-450) k/uL Neutrophils # 15.8 H (1.3-7.7) k/uL Sodium 135 L (137-145) mmol/L BUN 25 H (7-17) mg/dL POC Glucose (mg/dL) 101 H (75-99) mg/dL Calcium 8.3 L (8.4-10.2) mg/dL Alkaline Phosphatase 394 H (38-126) U/L Total Protein 4.8 L (6.3-8.2) g/dL Albumin 2.1 L (3.5-5.0) g/dL 12/27/17 12/27/17 12/27/17 Range/Units 11:57 17:10 20:32 WBC (3.8-10.6) k/uL RBC (3.80-5.40) m/uL Hgb (11.4-16.0) gm/dL Hct (34.0-46.0) % MCHC (31.0-37.0) g/dL RDW (11.5-15.5) % Plt Count (150-450) k/uL Neutrophils # (1.3-7.7) k/uL Sodium (137-145) mmol/L BUN (7-17) mg/dL POC Glucose (mg/dL) 110 H 131 H 107 H (75-99) mg/dL Calcium (8.4-10.2) mg/dL Alkaline Phosphatase (38-126) U/L Total Protein (6.3-8.2) g/dL Albumin (3.5-5.0) g/dL Laboratory Results WBC 18.7 k/uL (3.8-10.6) H 12/27/17 06:18 RBC 3.01 m/uL (3.80-5.40) L 12/27/17 06:18 Hgb 8.3 gm/dL (11.4-16.0) L 12/27/17 06:18 Hct 26.8 % (34.0-46.0) L 12/27/17 06:18 MCV 88.9 fL (80.0-100.0) 12/27/17 06:18 MCH 27.5 pg (25.0-35.0) 12/27/17 06:18 MCHC 30.9 g/dL (31.0-37.0) L 12/27/17 06:18 RDW 16.0 % (11.5-15.5) H 12/27/17 06:18 Plt Count 486 k/uL (150-450) H 12/27/17 06:18 Neutrophils % 85 % 12/27/17 06:18 Neutrophils % (Manual) 75 % 12/20/17 04:30 Band Neutrophils % 7 % 12/20/17 04:30 Lymphocytes % 6 % 12/27/17 06:18 Lymphocytes % (Manual) 7 % 12/20/17 04:30 Monocytes % 5 % 12/27/17 06:18 Monocytes % (Manual) 5 % 12/20/17 04:30 Eosinophils % 2 % 12/27/17 06:18 Eosinophils % (Manual) 2 % 12/20/17 04:30 Basophils % 0 % 12/27/17 06:18 Metamyelocytes % 3 % 12/20/17 04:30 Myelocytes % 3 % 12/20/17 04:30 Neutrophils # 15.8 k/uL (1.3-7.7) H 12/27/17 06:18 Neutrophils # (Manual) 11.70 k/uL (1.3-7.7) H 12/20/17 04:30 Lymphocytes # 1.1 k/uL (1.0-4.8) 12/27/17 06:18 Lymphocytes # (Manual) 1.00 k/uL (1.0-4.8) 12/20/17 04:30 Monocytes # 0.9 k/uL (0-1.0) 12/27/17 06:18 Monocytes # (Manual) 0.72 k/uL (0-1.0) 12/20/17 04:30 Eosinophils # 0.4 k/uL (0-0.7) 12/27/17 06:18 Eosinophils # (Manual) 0.29 k/uL (0-0.7) 12/20/17 04:30 Basophils # 0.1 k/uL (0-0.2) 12/27/17 06:18 Metamyelocytes # (Man) 0.43 k/uL (0) H 12/20/17 04:30 Myelocytes # (Manual) 0.43 k/uL (0) H 12/20/17 04:30 Nucleated RBCs 0 /100 WBC (0-0) 12/20/17 04:30 Manual Slide Review Performed 12/22/17 04:23 Toxic Granulation Present 12/22/17 04:23 Large Platelets Present 12/18/17 04:30 RBC Morphology Normal 12/11/17 16:55 Polychromasia Present 12/20/17 04:30 Hypochromasia Moderate 12/27/17 06:18 Poikilocytosis Slight 12/27/17 06:18 Poikilocytosis (manual Present 12/18/17 04:30 Anisocytosis Slight 12/26/17 04:15 PT 9.9 sec (9.0-12.0) 12/25/17 08:48 INR 1.0 (<1.2) 12/25/17 08:48 APTT 49.0 sec (22.0-30.0) H 12/19/17 04:14 Sample Site [place] 12/22/17 10:36 ABG pH 7.42 (7.35-7.45) 12/22/17 10:36 ABG pCO2 26 mmHg (35-45) L 12/22/17 10:36 ABG pO2 100 mmHg (83-108) 12/22/17 10:36 ABG HCO3 17 mmol/L (21-25) L 12/22/17 10:36 ABG Total CO2 18 mmol/L (19-24) L 12/22/17 10:36 ABG O2 Saturation 98.3 % (94-97) H 12/22/17 10:36 ABG Base Excess -7.4 mmol/L 12/22/17 10:36 ABG Hematocrit 20 % (34.0-46.0) L* 12/11/17 12:13 [place] Test Yes 12/22/17 04:10 ABG Sodium 136 mmol/L (135-146) 12/11/17 12:13 ABG Potassium 4.4 mmol/L (3.4-4.5) 12/11/17 12:13 ABG Ionized Calcium 4.2 mg/dL (4.5-5.3) L 12/11/17 12:13 ABG Glucose 204 mg/dL (75-99) H 12/11/17 12:13 ABG Lactic Acid 0.9 mmol/L (0.5-1.6) 12/21/17 04:30 Hemoglobin 6.4 gm/dL (11.4-16.0) L* 12/11/17 12:13 FiO2 40 % 12/22/17 10:36 Sodium 135 mmol/L (137-145) L 12/27/17 06:18 Potassium 4.5 mmol/L (3.5-5.1) 12/27/17 06:18 Chloride 104 mmol/L (98-107) 12/27/17 06:18 Carbon Dioxide 26 mmol/L (22-30) 12/27/17 06:18 Anion Gap 5 mmol/L 12/27/17 06:18 BUN 25 mg/dL (7-17) H 12/27/17 06:18 Creatinine 0.72 mg/dL (0.52-1.04) 12/27/17 06:18 Est GFR (CKD-EPI)AfAm >90 (>60 ml/min/1.73 sqM) 12/27/17 06:18 Est GFR (CKD-EPI)NonAf 86 (>60 ml/min/1.73 sqM) 12/27/17 06:18 Glucose 85 mg/dL (74-99) 12/27/17 06:18 POC Glucose (mg/dL) 107 mg/dL (75-99) H 12/27/17 20:32 POC Glu [employer] ID Merary Marquez 12/27/17 20:[address] Glu mg/dL 186 12/08/17 06:55 Hemoglobin A1c 8.1 % (4.0-6.0) H 12/08/17 06:55 Lactic Ac Sepsis Rflx Y 12/15/17 10:17 Plasma Lactic Acid [place] 0.7 mmol/L (0.7-2.0) 12/22/17 09:15 Calcium 8.3 mg/dL (8.4-10.2) L 12/27/17 06:18 Ionized Calcium [place] 5.3 mg/dL (4.5-5.3) 12/27/17 06:18 Phosphorus 3.4 mg/dL (2.5-4.5) 12/27/17 06:18 Magnesium 2.0 mg/dL (1.6-2.3) 12/27/17 06:18 Total Bilirubin 0.6 mg/dL (0.2-1.3) 12/27/17 06:18 AST 32 U/L (14-36) 12/27/17 06:18 ALT 30 U/L (9-52) 12/27/17 06:18 Alkaline Phosphatase 394 U/L (38-126) H 12/27/17 06:18 Total Protein 4.8 g/dL (6.3-8.2) L 12/27/17 06:18 Albumin 2.1 g/dL (3.5-5.0) L 12/27/17 06:18 Prealbumin <5.0 mg/dL (18.0-42.0) L 12/22/17 04:23 Triglycerides 171 mg/dL (<150) H 12/23/17 04:32 Cholesterol 129 mg/dL (<200) 12/08/17 06:55 LDL Cholesterol, Calc 45 mg/dL (0-99) 12/08/17 06:55 HDL Cholesterol 66 mg/dL (40-60) H 12/08/17 06:55 Amylase <30 U/L (30-110) L 12/14/17 15:37 Lipase 25 U/L (23-300) 12/14/17 15:37 TSH 2.940 mIU/L (0.465-4.680) 12/08/17 06:55 Arterial Blood Potassium 4.4 mmol/L (3.4-4.5) 12/11/17 12:13 Arterial Blood Glucose 204 mg/dL (75-99) H 12/11/17 12:13 Urine Color Yellow 12/08/17 12:00 Urine Appearance Cloudy (Clear) H 12/08/17 12:00 Urine pH 7.5 (5.0-8.0) 12/08/17 12:00 Ur Specific [place] 1.044 (1.001-1.035) H 12/08/17 12:00 Urine Protein Negative (Negative) 12/08/17 12:00 Urine Glucose (UA) Negative (Negative) 12/08/17 12:00 Urine Ketones Negative (Negative) 12/08/17 12:00 Urine Blood Moderate (Negative) H 12/08/17 12:00 Urine Nitrite Negative (Negative) 12/08/17 12:00 Urine Bilirubin Negative (Negative) 12/08/17 12:00 Urine Urobilinogen <2.0 mg/dL (<2.0) 12/08/17 12:00 Ur Leukocyte Esterase Small (Negative) H 12/08/17 12:00 Urine RBC 2 /hpf (0-5) 12/08/17 12:00 Urine WBC 3 /hpf (0-5) 12/08/17 12:00 Ur Squamous Epith Cells 1 /hpf (0-4) 12/08/17 12:00 Urine Bacteria Occasional /hpf (None) H 12/08/17 12:00 Urine Mucus Rare /hpf (None) H 12/08/17 12:00 Stool Occult Blood Positive (Negative) H 12/16/17 04:45 Stl Cryptosporidium Ag Negative (Negative) 12/15/17 14:15 Stool Giardia Source Stool 12/15/17 14:15 Stl Giardia Antigen Negative (Negative) 12/15/17 14:15 Vancomycin Trough 17.7 ug/mL 12/16/17 08:33 C. difficile (EIA) Intrp Negative (Negative) 12/16/17 10:35 Hepatitis A IgM Ab Non-Reactive (Non-Reactive) 12/08/17 06:55 Hep Bs Antigen Non-Reactive (Non-Reactive) 12/08/17 06:55 Hep B Core IgM Ab Non-Reactive (Non-Reactive) 12/08/17 06:55 Hep C IgG Ab Non-Reactive (Non-Reactive) 12/08/17 06:55 Blood Type B Positive 12/20/17 11:26 Blood Type Confirm B Positive 12/10/17 10:21 Blood Type Recheck No 12/20/17 11:26 Antibody Screen NEGATIVE 12/20/17 11:26 Crossmatch See Detail 12/20/17 11:26 Transfuse Platelets 12/11/17 12/10/17 05:38 Spec Expiration Date 12/23/2017 - 65412/20/17 11:26 Microbiology 12/13/17 22:12 Blood Blood Culture - Final No Growth after 144 hours 12/15/17 14:15 Stool Stool Culture - Final 12/12/17 17:00 Urine,Catheterized Urine Culture - Final 12/08/17 12:00 Urine,Clean Catch Urine Culture - Final Escherichia coli 12/08/17 12:00 Nasal Swab Nasal Screen MRSA/MSSA - Final Assessment and Plan (1) E. coli sepsis Narrative/Plan: 72 year old woman with history of CAD failed stress test now s/p CABG and was progressing but developed fever to 102. Found to have UTI and is now improving. He doesn't history of chronic back pain been of some contention over the last day because of excess sedation from her pain medications. She currently is on minimal premedication with orders to ensure that she is at least sitting up and getting some ambulation. Her shortness of breath is definitely improved her chest is without significant pain. She does have a history of urinary tract infections in the past, since the Almaguer is out she has some minimal discomfort but does not feel miserable. She's had difficulty with incontinence since the Almaguer has been removed, bladder scan was performed with only 200 mL noted. She does have a urine culture with Escherichia coli that is resistant to quinolone therapy. With her fever the antibiotic therapy was enhance Zosyn and vancomycin. Sternal wound does not appear to be infected at the moment does not seem to have pneumonia. 12/15/2017 reveals the patient to have a change of her status in that she developed abdominal pain as well as worsening of her status. This concerns to ischemic colitis and she was moved to the intensive care unit. She's been seen by general surgery. It is being monitored. She had worsening lactic acidosis is now showing improvement after fluid challenge. She is not having chest pain and her shortness of breath continues to improve. Blood cultures are negative but urine culture did have E. coli years that she does have significant underlying infection in the urinary system. Treatment has been with Zosyn which should also cover ischemic colitis at that is occurring at this time. There are concerns to bowel compromise possibly for microemboli in the postoperative time frame. With this heparin has been started. Cultures are process and she'll be monitored. Her significant leukocytosis showing some slight improvement. 12/18/2017 the patient is having some improvement. She is not having as much pain and is able to tolerate some oral intake with clear liquids and has had some flatus. Abdominal pain is steadily improved and overall feels better. Leukocytosis is trending to improvement. X-ray shows evidence of some worsening of the hilar edema.there are no new positive cultures on the E. coli has been isolated. Antibiotic therapy with Zosyn to complete 7 days of therapy for her E. coli urinary tract infection. Surgery is following for the transient ischemic colitis she's been anticoagulated, and final plans are being developed as far as her long-term anticoagulation. The lactic acidosis completely resolved. December 21 2017 after the patient had a major change in her statusand was found evidence of ischemic colitis in the transverse and right colon and underwent colectomy and ileostomy placement. She's now having some improvement in her vasopressor therapy has now been put on hold with resolution of the hypotension. Patient seems to be comfortable. With her significant change of status antimicrobial therapy was migrated to meropenem and Eraxis pending culture results.she has a persistent leukocytosis related to the current sepsis which is showing some improvement. She did have profound anemia and was transfused and seems to be stable at this time. No Evidence of any new acute bleeding. 12/22/2017 the patient is now extubated and comfortable. Gastrointestinal function recovery is awaited and peripheral nutrition has been established. Leukocytosis is improving. She no longer is requiring vasopressor therapy. Seems responding well to meropenem and Eraxis and these will continue for now. Patient's family is present and course in therapy are discussed including the need for rehab after discharge. 12/24/2017 patient continued to show improvement. Doing well after her recent surgical intervention. Responding well to antimicrobial therapy with meropenem and Eraxis. We'll plan at least 10 days of antimicrobial therapy regarding her significant sepsis from the ischemic colitis and leak. The profound leukocytosis is improving diminishing to 19.2 from 29.4. Remains afebrile. 12/25/2017 patient remains without fever, her profound leukocytosis continues to decline in overall she's doing considerably better except for complaints of chronic back pain. She's had return of abdominal function and is tolerating her full liquid diet without difficulty. No nausea or emesis occurred. Is working with the primary service as far as her pain control given her history of chronic back pain and chronic narcotic use for this. She is on day 4 of 10 of antibiotic therapy with Merrem and Eraxis for the ischemic perforated colon. 12/27/2017 patient continues to improve. Day 6 of 10 of antibiotic therapy with Merrem and Eraxis for her ischemic perforated colitis. Continues to have improvement discomfort from her back from her arthritis remains her biggest complaint. Status: Acute Code(s): A41.51 - SEPSIS DUE TO ESCHERICHIA COLI [E. COLI] SNOMED Code(s): 729708848 (2) Urinary tract infection Current Visit: Yes Status: Acute Code(s): N39.0 - URINARY TRACT INFECTION, SITE NOT SPECIFIED SNOMED Code(s): 40495728 (3) Coronary artery disease involving left main coronary artery Current Visit: Yes Status: Chronic Code(s): I25.10 - ATHSCL HEART DISEASE OF [place] CORONARY ARTERY W/O ANG PCTRS SNOMED Code(s): 773420932 (4) Fever Current Visit: Yes Status: Acute Code(s): R50.9 - FEVER, UNSPECIFIED SNOMED Code(s): 642995366
--- NOTE | 2017-12-27 23:33 | PN ---
PROGRESS NOTE DATE OF SERVICE: 12/27/2017. PRESENTING COMPLAINT: Status post CABG. INTERVAL HISTORY: I saw the patient in the ICU. Patient is status post CABG followed by ischemic bowel and bowel perforation resulting in ostomy and a wound VAC in place. NG tube has been out. Patient was advanced to a full liquid. The patient has a midline in place. The patient's colostomy bag is working. Has been up in a chair, more cheerful. Patient's is present. Wound VAC remains in place. REVIEW OF SYSTEMS: Done for constitutional, cardiovascular, GI, pulmonary; relevant findings as above. CURRENT MEDICATIONS: Reviewed that include: 1. DuoNeb. 2. Cordarone. 3. Norvasc. 4. Anidulafungin. 5. IV Lasix 20 q.12h. 6. IV meropenem. EXAMINATION: Temperature 97.8, pulse 73, respirations 19, blood pressure 105/70, pulse ox 98% on 2L. GENERAL APPEARANCE: Propped up in a chair, more awake. EYES: Pupils equal. Conjunctivae normal. HEENT: External nose and ears normal. Oral cavity normal. NECK: JVD unable to assess. Mass not palpable. RESPIRATORY: Effort increased. LUNGS: Decreased breath sounds. CARDIOVASCULAR: Heart sounds muffled. Some edema. ABDOMEN: Soft, nontender. Stool in the colostomy bag. Wound VAC in place. Liver, spleen not palpable. PSYCHIATRY: Alert and oriented x3. Mood and affect normal. INVESTIGATIONS: White count 18.7, hemoglobin 8.3, platelets 46, potassium 4.5. Accu-Cheks are noted. ASSESSMENT: 1. Coronary artery disease, status post bypass on 12/11/2017. 2. Acute ischemic bowel with perforation with right transverse colectomy and takedown of the splenic flexure with resultant colostomy now that is functioning. 3. Wound VAC in place. 4. Acute hypoxic respiratory failure, status post ventilator support. Continue on 2L of oxygen. 5. Hypertensive shock and septic shock, now recovered. The patient is on broad- spectrum antibiotics, including antifungals. 6. Paroxysmal atrial fibrillation, now in sinus rhythm. 7. Peripheral artery disease. 8. Hypothyroid. 9. Diabetes mellitus type 2. 10.Chronic low back pain from arthritis. 11.Depression, not otherwise specified. 12.Obesity; BMI 34.3. 13.Acute blood loss anemia expected from surgery and hospital acquired from blood draws. 14.Hyperlipidemia. 15.Hypoalbuminemia as an acute phase reactant. 16.Left-sided pleural effusion. At this point, thoracentesis has been deferred. 17.Essential hypertension. PLAN: Continue medication and treatment plan. Diet is being advanced to full liquids. Care was discussed with the patient at the bedside. Antibiotics are to continue. The patient probably will be moved out of ICU today. MMODL / IJN: [id number] /
[2017-12-28 01:52] LABS: Glucose,Whole Blood 105 mg/dL (75-99)
[2017-12-28] MEDS: INSULIN ASPART 100 UNIT/ML 1 ML 10 ML VIAL SQ SCH ×5 (02:58→20:50)
[2017-12-28 05:51] LABS: Glucose,Whole Blood 96 mg/dL (75-99)
[2017-12-28] MEDS: LEVOTHYROXINE 75 MCG TAB PO SCH (06:31)
[2017-12-28 06:49] LABS: Basophils # (A) 0.1 k/uL (0-0.2); Basophils % (A) 0 %; Eosinophils # (A) 0.5 k/uL (0-0.7); Eosinophils % (A) 4 %; HCT 24.2 % (34.0-46.0); HGB 7.3 gm/dL (11.4-16.0); Hypochromasia Moderate; Lymphocytes # (A) 1.2 k/uL (1.0-4.8); Lymphocytes % (A) 8 %; MCH 26.9 pg (25.0-35.0); MCHC 30.2 g/dL (31.0-37.0); MCV 89.1 fL (80.0-100.0); Mean Platelet Volume 6.9; Monocytes % (A) 6 %; Neutrophils # (A) 12.6 k/uL (1.3-7.7); Neutrophils % (A) 81 %; Platelet Count 521 k/uL (150-450); RBC 2.72 m/uL (3.80-5.40); RDW 15.8 % (11.5-15.5); WBC 15.6 k/uL (3.8-10.6)
[2017-12-28 06:58] LABS: ALT 31 U/L (9-52); AST 30 U/L (14-36); Albumin 1.9 g/dL (3.5-5.0); Alkaline Phosphatase 385 U/L (38-126); Anion Gap 6 mmol/L; Blood Urea Nitrogen 22 mg/dL (7-17); Calcium 8.2 mg/dL (8.4-10.2); Carbon Dioxide 24 mmol/L (22-30); Chloride 103 mmol/L (98-107); Glucose 84 mg/dL (74-99); Potassium 4.2 mmol/L (3.5-5.1); Sodium 133 mmol/L (137-145); Total Bilirubin 0.5 mg/dL (0.2-1.3); Total Protein 4.6 g/dL (6.3-8.2)
--- NOTE | 2017-12-28 07:59 | XR ---
EXAMINATION TYPE: XR chest 2V DATE OF EXAM: 12/28/2017 COMPARISON: 12/27/2017 HISTORY: Shortness of breath TECHNIQUE: Frontal and lateral views of the chest are obtained. FINDINGS: Scattered senescent parenchymal changes noted. Hyperinflation compatible with COPD. Left greater than right pleural effusion with layering component seen on the left. Left basilar atele ctasis suspected. Overall improvement noted. Heart size is stable. Mediastinal structures are stable and grossly unremarkable. No evidence for hilar prominence. Degenerative changes dorsal spine. IMPRESSION: 1. Left greater than right pleural effusion with layering component seen on the left. Left basilar at electasis suspected. Overall improvement noted.
[2017-12-28] MEDS: IPRATROPIUM-ALBUTEROL 3 ML NEB INHALATION SCH ×4 (08:39→20:49)
[2017-12-28] MEDS: HEPARIN SODIUM,PORCINE 5,000 UNIT/ML 1 ML VIAL SQ SCH ×3 (09:09→23:30)
[2017-12-28] MEDS: oxyCODONE ER 20 MG TAB.ER.12H PO SCH ×3 (09:09→23:42)
[2017-12-28] MEDS: AMIODARONE 200 MG TAB PO SCH (09:09)
[2017-12-28] MEDS: ASPIRIN 81 MG PO SCH (09:10)
[2017-12-28] MEDS: ATORVASTATIN 40 MG TAB PO SCH (09:10)
[2017-12-28] MEDS: DULoxetine HCL 60 MG CAPSULE.DR PO SCH (09:10)
[2017-12-28] MEDS: FUROSEMIDE 10 MG/ML 2 ML VIAL IV SCH ×2 (09:10→20:42)
[2017-12-28] MEDS: CLOPIDOGREL 75 MG TAB PO SCH (09:10)
[2017-12-28] MEDS: METOPROLOL TARTRATE 25 MG TAB PO SCH ×2 (09:10→20:42)
[2017-12-28] MEDS: PANTOPRAZOLE 40 MG/10 ML VIAL IVP SCH (09:10)
[2017-12-28] MEDS: hydrALAZINE HCL 10 MG TAB PO SCH ×2 (09:10→20:42)
[2017-12-28] MEDS: MEROPENEM 2 GM in SODIUM CHLORIDE 0.9% 100 ML IVPB SCH ×2 (09:40→20:41)
--- NOTE | 2017-12-28 10:35 | P.PN ---
Subjective Progress Note Date: 12/28/17 Principal diagnosis: Coronary artery disease with critical left main disease. Preserved left ventricular function. Previous medical history of hypertension, hyperlipidemia , diabetes mellitus with preoperative hemoglobin A1c 8.1%, hypothyroid, chest granulomatous disease, peripheral vascular disease status post right fem-pop bypass, previous tobacco dependence with preoperative FEV1 109% of predicted in November 2016, recent fall in June 2017 with torn right rotator cuff, questionable DVT with previous Coumadin use greater than 2 years ago, syncopal episodes, history of paroxysmal atrial fibrillation, chronic low back pain, obesity, depression and preoperative E. coli urinary tract infection. POD #17 urgent quadruple coronary artery bypass grafting using the left internal mammary artery sequentially to the diagonal coronary artery and to the left anterior descending coronary artery, a reverse greater saphenous vein graft from the aorta to the first obtuse marginal coronary artery, a reverse greater saphenous vein graft from the aorta to the third obtuse marginal coronary artery. Bilateral pulmonary vein isolation using the AtriCure radiofrequency clamp. Exclusion of the left atrial appendage using a 35 mm AtriClip. Intraoperative transesophageal echocardiogram and epi-aortic scanning. POD #7 right colectomy, transverse colectomy, takedown splenic flexure, ileostomy performed by Dr. Montoya Postoperative elevation in transaminases, an unexpected outcome, resolving. Leukocytosis, present preoperatively. Postoperative diarrhea, an unexpected outcome. Postoperative normochromic, normocytic anemia, an expected outcome of surgery secondary to cardiopulmonary bypass and hemodilution. Postoperative urinary retention, an unexpected outcome. Postoperative pneumoperitoneum, an unexpected outcome. Necrosis of the transverse colon, right colon and unexpected outcome. Sepsis, septic shock, an unexpected outcome. The patient is currently sitting up to the bedside chair. She is in no acute distress. Denies any complaints of pain or shortness of breath at this time. She is alert and oriented 3. Wound VAC remains in place. Her ileostomy is intact with stool present. She is tolerating oral intake without complaints of any nausea. Objective - Vital Signs Vital signs: Vital Signs Temp 97.1 F L 12/28/17 08:00 Pulse 84 12/28/17 08:50 Resp 16 12/28/17 08:50 BP 126/90 12/28/17 08:00 Pulse Ox 100 12/28/17 08:39 Intake & Output 12/27/17 12/28/17 12/28/17 18:59 06:59 18:59 Intake Total 1220 220 180 Output Total 1335 1255 Balance -115 -1035 180 Weight 98 kg Intake: IV 300 100 Anidulafungin 200 mg In 200 Sodium Chloride 0.9% 200 ml @ 84 mls/hr IVPB ONCE ONE Rx#:[id number] Meropenem 2 gm In Sodium 100 100 Chloride 0.9% 100 ml @ 200 mls/hr IVPB Q12HR [facility] Rx#:[id number] Oral 920 120 180 Output: Urine 935 1255 Stool 400 Other: Voiding Method Indwelling Catheter Indwelling Catheter Indwelling Catheter ABP, PAP, CO, CI - Last Documented Arterial Blood Pressure 159/93 Pulmonary Artery Pressure 4/4 Cardiac Output 4.5 Cardiac Index 2.5 - Constitutional General appearance: Present: cooperative, morbidly obese, no acute distress - Respiratory Details: Lung sounds are essentially clear throughout, diminished bilateral bases left greater than right. Respirations are symmetrical and nonlabored. Oxygen saturation saturations are 98% on 2 L nasal cannula. She is achieving 1250 mL on her incentive spirometry. - Cardiovascular Details: Regular rhythm and rate. S1 and S2 present, negative for S3, gallop or murmur. Sternum is stable. Remote telemetry showing normal sinus rhythm heart rate 88. Heart hugger is in place and she is demonstrating appropriate use. Knee- high KURT hose and sequential compression devices in place to her bilateral lower extremities. Right upper basilic vein midline catheter present and functioning. No edema present. - Gastrointestinal Gastrointestinal Comment(s): Abdomen is soft, nontender and nondistended. Hypoactive bowel sounds resident all 4 abdominal quadrants. Right lower quadrant ileostomy present with brown BM. Tolerating oral intake. - Genitourinary Genitourinary Comment(s): Almaguer catheter for accurate I&O. Draining clear yellow urine. Adequate urine output. 950 mL output in the last 8 hours. - Integumentary Integumentary Comment(s): Skin is warm and dry. No clubbing or cyanosis present. Midline sternal incision clean dry and approximated. No drainage or redness present. Left lower leg EVH site clean dry and approximated. No drainage or redness present. Midline abdominal incision clean dry with VAC dressing in place. Robinson in place to mid midline abdominal incision. Ileostomy stoma pink in color. - Neurologic Neurologic: Present: CNII-XII intact - Musculoskeletal Musculoskeletal: Present: gait normal, generalized weakness, strength equal bilaterally - Psychiatric Psychiatric: Present: A&O x's 3, appropriate affect, intact judgment & insight - Allied health notes Allied health notes reviewed: nursing - Labs CBC & Chem 7: 12/28/17 06:10 12/28/17 06:10 Labs: Abnormal Lab Results - Last 24 Hours (Table) 12/27/17 12/27/17 12/27/17 Range/Units 11:57 17:10 20:32 WBC (3.8-10.6) k/uL RBC (3.80-5.40) m/uL Hgb (11.4-16.0) gm/dL Hct (34.0-46.0) % MCHC (31.0-37.0) g/dL RDW (11.5-15.5) % Plt Count (150-450) k/uL Neutrophils # (1.3-7.7) k/uL Sodium (137-145) mmol/L BUN (7-17) mg/dL POC Glucose (mg/dL) 110 H 131 H 107 H (75-99) mg/dL Calcium (8.4-10.2) mg/dL Alkaline Phosphatase (38-126) U/L Total Protein (6.3-8.2) g/dL Albumin (3.5-5.0) g/dL 12/28/17 12/28/17 12/28/17 Range/Units 01:50 06:10 06:10 WBC 15.6 H (3.8-10.6) k/uL RBC 2.72 L (3.80-5.40) m/uL Hgb 7.3 L (11.4-16.0) gm/dL Hct 24.2 L (34.0-46.0) % MCHC 30.2 L (31.0-37.0) g/dL RDW 15.8 H (11.5-15.5) % Plt Count 521 H (150-450) k/uL Neutrophils # 12.6 H (1.3-7.7) k/uL Sodium 133 L (137-145) mmol/L BUN 22 H (7-17) mg/dL POC Glucose (mg/dL) 105 H (75-99) mg/dL Calcium 8.2 L (8.4-10.2) mg/dL Alkaline Phosphatase 385 H (38-126) U/L Total Protein 4.6 L (6.3-8.2) g/dL Albumin 1.9 L (3.5-5.0) g/dL - Imaging and Cardiology Chest x-ray: report reviewed, image reviewed Assessment and Plan (1) Diarrhea in adult patient Current Visit: Yes Status: Acute Code(s): R19.7 - DIARRHEA, UNSPECIFIED SNOMED Code(s): 69014634 (2) Chronic low back pain Current Visit: Yes Status: Chronic Code(s): M54.5 - LOW BACK PAIN; G89.29 - OTHER CHRONIC PAIN SNOMED Code(s): 330466133 (3) Coronary artery disease involving left main coronary artery Current Visit: Yes Status: Chronic Code(s): I25.10 - ATHSCL HEART DISEASE OF LIME CORONARY ARTERY W/O ANG PCTRS SNOMED Code(s): 729569613 (4) Diabetes Current Visit: Yes Status: Chronic Code(s): E11.9 - TYPE 2 DIABETES MELLITUS WITHOUT COMPLICATIONS SNOMED Code(s): 89547429 (5) Family history of heart disease Current Visit: Yes Status: Chronic Code(s): Z82.49 - FAMILY HX OF ISCHEM HEART DIS AND OTH DIS OF THE CIRC SYS SNOMED Code(s): 024695349 (6) Hyperlipidemia Current Visit: Yes Status: Chronic Code(s): E78.5 - HYPERLIPIDEMIA, UNSPECIFIED SNOMED Code(s): 85496232 (7) Hypertension Current Visit: Yes Status: Chronic Code(s): I10 - ESSENTIAL (PRIMARY) HYPERTENSION SNOMED Code(s): 01504788 (8) Hypothyroid Current Visit: Yes Status: Chronic Code(s): E03.9 - HYPOTHYROIDISM, UNSPECIFIED SNOMED Code(s): 68812376 (9) Peripheral vascular disease Current Visit: Yes Status: Chronic Code(s): I73.9 - PERIPHERAL VASCULAR DISEASE, UNSPECIFIED SNOMED Code(s): 310127161 (10) History of DVT (deep vein thrombosis) Current Visit: No Status: Resolved Code(s): Z86.718 - PERSONAL HISTORY OF OTHER VENOUS THROMBOSIS AND EMBOLISM SNOMED Code(s): 063514770 (11) History of atrial fibrillation Current Visit: No Status: Resolved Code(s): Z86.79 - PERSONAL HISTORY OF OTHER DISEASES OF THE CIRCULATORY SYSTEM SNOMED Code(s): 666247848 (12) Tobacco dependence in remission Current Visit: No Status: Resolved Code(s): F17.201 - NICOTINE DEPENDENCE, UNSPECIFIED, IN REMISSION SNOMED Code(s): 049933554 (13) Intestinal necrosis Current Visit: Yes Status: Acute Code(s): K55.069 - ACUTE INFARCTION OF INTESTINE, PART AND EXTENT UNSPECIFIED SNOMED Code(s): 75140822 (14) Ileostomy in place Current Visit: Yes Status: Acute Code(s): Z93.2 - ILEOSTOMY STATUS SNOMED Code(s): 061781344 (15) Ileostomy care Current Visit: Yes Status: Acute Code(s): Z43.2 - ENCOUNTER FOR ATTENTION TO ILEOSTOMY SNOMED Code(s): 464857426 (16) Ischemic colitis Current Visit: Yes Status: Acute Code(s): K55.9 - VASCULAR DISORDER OF INTESTINE, UNSPECIFIED SNOMED Code(s): 14524373 Plan: 1. Continue low dose aspirin, statin, plavix and beta sheree. Will increase her beta sheree as tolerated. 2. Wean oxygen as tolerated to maintain her oxygen saturations greater than 92% . 3. Continue meropenem and a right Eraxis managed by Dr. Mccartney from infectious disease. 4. Continue amiodarone for A. fib prophylaxis. Currently on amiodarone 200 mg by mouth daily. 5. Continue Lasix 20 mg IV twice a day. 6. Monitor daily labs, chest x-rays. 7. GI/DVT prophylaxis. 8. Pain control with current medication regimen. 9. Bronchodilators management per pulmonology. 10. Insulin/diabetic management per primary care service. 11. Wound VAC management per general surgery recommendations to her abdominal incisions. It was changed yesterday 12/27/2017. 12. Discontinue Almaguer catheter with bladder scanning every 6 hours. 13. Increase activity as tolerated, physical therapy/occupational therapy and cardiac rehab following. 14. Routine ileostomy care. 15. More recommendations to follow based on patient's clinical course. Time with Patient: Greater than 30
[2017-12-28 11:41] LABS: Glucose,Whole Blood 118 mg/dL (75-99)
[2017-12-28] MEDS: amLODIPine 5 MG TAB PO SCH (11:50)
[2017-12-28] MEDS: CYANOCOBALAMIN 500 MCG TAB PO SCH (11:51)
[2017-12-28] MEDS: FERROUS SULFATE 325 MG TAB PO SCH (11:51)
[2017-12-28] MEDS: ASCORBIC ACID 500 MG TAB PO SCH (11:51)
[2017-12-28] MEDS: ANIDULAFUNGIN 100 MG in SODIUM CHLORIDE 0.9% 100 ML IVPB SCH (11:57)
[2017-12-28] MEDS: ACETAMINOPHEN TAB 325 MG TAB PO PRN (12:09)
--- NOTE | 2017-12-28 12:27 | P.PN ---
<KevenMinnieMissy M - Last Filed: 12/28/17 12:16> Subjective Progress Note Date: 12/28/17 9-year-old female seen in the stepdown unit sitting up in bed states physical therapy is to ambulate the patient today spouse at bedside ostomy functioning moderate amount of stool [address] white count this morning 15.8 afebrile temp 97 reportedly tolerating a low fiber diet Is no reports no reports of nausea vomiting status post status post right colectomy for acute perforated viscus and necrosis of the transverse and right colon. Postop day 7 done December 20 Objective - Vital Signs Vital signs: Vital Signs Temp 97.1 F L 12/28/17 08:00 Pulse 82 12/28/17 11:30 Resp 18 12/28/17 11:30 BP 150/82 12/28/17 11:30 Pulse Ox 98 12/28/17 11:30 Intake & Output 12/27/17 12/28/17 12/28/17 18:59 06:59 18:59 Intake Total 1220 220 180 Output Total 1335 1255 Balance -115 -1035 180 Weight 98 kg Intake: IV 300 100 Anidulafungin 200 mg In 200 Sodium Chloride 0.9% 200 ml @ 84 mls/hr IVPB ONCE ONE Rx#:[id number] Meropenem 2 gm In Sodium 100 100 Chloride 0.9% 100 ml @ 200 mls/hr IVPB Q12HR [facility] Rx#:[id number] Oral 920 120 180 Output: Urine 935 1255 Stool 400 Other: Voiding Method Indwelling Catheter Indwelling Catheter Indwelling Catheter ABP, PAP, CO, CI - Last Documented Arterial Blood Pressure 159/93 Pulmonary Artery Pressure 4/4 Cardiac Output 4.5 Cardiac Index 2.5 - Exam Physical exam Awake and alert sitting up in the bed appears in no acute distress nursing reports it takes 2 to transfer patient from bed to chair significantly deconditioned Lungs diminished bilaterally 2 L nasal cannula keeping a sat 98 Heart S1-S2 audible denying chest pain Abdomen ostomy moderate amount of stool surgical dressing currently dry wound VAC in place. Hypoactive bowel tones nasal indwelling [place] catheter in place reports no nausea vomiting reportedly tolerating a diet Extremities Venodyne's on to bilateral lower extremities moderate amount 2+ eating edema lower extremity - Labs CBC & Chem 7: 12/28/17 06:10 12/28/17 06:10 Labs: Abnormal Lab Results - Last 24 Hours (Table) 12/27/17 12/27/17 12/28/17 Range/Units 17:10 20:32 01:50 WBC (3.8-10.6) k/uL RBC (3.80-5.40) m/uL Hgb (11.4-16.0) gm/dL Hct (34.0-46.0) % MCHC (31.0-37.0) g/dL RDW (11.5-15.5) % Plt Count (150-450) k/uL Neutrophils # (1.3-7.7) k/uL Sodium (137-145) mmol/L BUN (7-17) mg/dL POC Glucose (mg/dL) 131 H 107 H 105 H (75-99) mg/dL Calcium (8.4-10.2) mg/dL Alkaline Phosphatase (38-126) U/L Total Protein (6.3-8.2) g/dL Albumin (3.5-5.0) g/dL 12/28/17 12/28/17 12/28/17 Range/Units 06:10 06:10 11:24 WBC 15.6 H (3.8-10.6) k/uL RBC 2.72 L (3.80-5.40) m/uL Hgb 7.3 L (11.4-16.0) gm/dL Hct 24.2 L (34.0-46.0) % MCHC 30.2 L (31.0-37.0) g/dL RDW 15.8 H (11.5-15.5) % Plt Count 521 H (150-450) k/uL Neutrophils # 12.6 H (1.3-7.7) k/uL Sodium 133 L (137-145) mmol/L BUN 22 H (7-17) mg/dL POC Glucose (mg/dL) 118 H (75-99) mg/dL Calcium 8.2 L (8.4-10.2) mg/dL Alkaline Phosphatase 385 H (38-126) U/L Total Protein 4.6 L (6.3-8.2) g/dL Albumin 1.9 L (3.5-5.0) g/dL Assessment and Plan Assessment: Impression Ischemic colitis resolving stool for C. diff negative Postop diarrhea 9 expected outcome Postop urgent quadruple coronary artery bypass grafting using left internal mammary Echocardiogram preserved LV function Sudden onset of abdominal pain postoperative suspect due to free air. As evident on a CAT scan of the abdomen and pelvis Right colectomy, transverse colectomy, takedown splenic flexure, ileostomy for Perforated viscus done on December 20 Necrosis of transverse colon, right colon Deconditioned suspect due to prolonged length of stay Plan Remove indwelling Almaguer catheter bladder scan every 6 hours Ileostomy care Ileostomy teaching as appropriate Pain control Wound VAC disorder Continue postop surgical care care PT OT eval Will follow with you with further recommendations as clinical course indicates The above impression and plan of care have been discussed and directed by signing physician. Missy Baca nurse practitioner acting as scribe for signing physician. <Adalid Crum - Last Filed: 12/28/17 16:42> Objective - Vital Signs Vital signs: Vital Signs Temp 97.4 F L 12/28/17 15:57 Pulse 78 12/28/17 16:41 Resp 18 12/28/17 16:00 BP 115/72 12/28/17 15:57 Pulse Ox 100 12/28/17 15:57 Intake & Output 12/27/17 12/28/17 12/28/17 18:59 06:59 18:59 Intake Total 1220 220 370 Output Total 1335 1255 800 Balance -115 -1035 -430 Weight 98 kg 98 kg Intake: IV 300 100 Anidulafungin 200 mg In 200 Sodium Chloride 0.9% 200 ml @ 84 mls/hr IVPB ONCE ONE Rx#:[id number] Meropenem 2 gm In Sodium 100 100 Chloride 0.9% 100 ml @ 200 mls/hr IVPB Q12HR [facility] Rx#:[id number] Oral 920 120 370 Output: Urine 935 1255 800 Stool 400 Other: Voiding Method Indwelling Catheter Indwelling Catheter Indwelling Catheter # Voids 0 # Bowel Movements 1 ABP, PAP, CO, CI - Last Documented Arterial Blood Pressure 159/93 Pulmonary Artery Pressure 4/4 Cardiac Output 4.5 Cardiac Index 2.5 - Labs CBC & Chem 7: 12/28/17 06:10 12/28/17 06:10 Labs: Abnormal Lab Results - Last 24 Hours (Table) 12/27/17 12/27/17 12/28/17 Range/Units 17:10 20:32 01:50 WBC (3.8-10.6) k/uL RBC (3.80-5.40) m/uL Hgb (11.4-16.0) gm/dL Hct (34.0-46.0) % MCHC (31.0-37.0) g/dL RDW (11.5-15.5) % Plt Count (150-450) k/uL Neutrophils # (1.3-7.7) k/uL Sodium (137-145) mmol/L BUN (7-17) mg/dL POC Glucose (mg/dL) 131 H 107 H 105 H (75-99) mg/dL Calcium (8.4-10.2) mg/dL Alkaline Phosphatase (38-126) U/L Total Protein (6.3-8.2) g/dL Albumin (3.5-5.0) g/dL 12/28/17 12/28/17 12/28/17 Range/Units 06:10 06:10 11:24 WBC 15.6 H (3.8-10.6) k/uL RBC 2.72 L (3.80-5.40) m/uL Hgb 7.3 L (11.4-16.0) gm/dL Hct 24.2 L (34.0-46.0) % MCHC 30.2 L (31.0-37.0) g/dL RDW 15.8 H (11.5-15.5) % Plt Count 521 H (150-450) k/uL Neutrophils # 12.6 H (1.3-7.7) k/uL Sodium 133 L (137-145) mmol/L BUN 22 H (7-17) mg/dL POC Glucose (mg/dL) 118 H (75-99) mg/dL Calcium 8.2 L (8.4-10.2) mg/dL Alkaline Phosphatase 385 H (38-126) U/L Total Protein 4.6 L (6.3-8.2) g/dL Albumin 1.9 L (3.5-5.0) g/dL 12/28/17 Range/Units 16:15 WBC (3.8-10.6) k/uL RBC (3.80-5.40) m/uL Hgb (11.4-16.0) gm/dL Hct (34.0-46.0) % MCHC (31.0-37.0) g/dL RDW (11.5-15.5) % Plt Count (150-450) k/uL Neutrophils # (1.3-7.7) k/uL Sodium (137-145) mmol/L BUN (7-17) mg/dL POC Glucose (mg/dL) 119 H (75-99) mg/dL Calcium (8.4-10.2) mg/dL Alkaline Phosphatase (38-126) U/L Total Protein (6.3-8.2) g/dL Albumin (3.5-5.0) g/dL Assessment and Plan Assessment: As above. Patient doing better at this time. No abdominal pain currently. Tolerating diet. Continue local wound care. Continue physical therapy. (1) Ischemic colitis Current Visit: Yes Status: Acute Code(s): K55.9 - VASCULAR DISORDER OF INTESTINE, UNSPECIFIED SNOMED Code(s): 40545201
--- NOTE | 2017-12-28 14:06 | P.PN ---
Subjective Progress Note Date: 12/28/17 Principal diagnosis: Status post coronary artery bypass grafting, status post right colectomy for acute perforated viscus and necrosis of the transverse and right colon. Mrs. Sellers is a 72-year-old white female patient of Dr. Alcala who was undergoing cardiac evaluation for clearance for her upcoming right rotator cuff repair, was found to have inferoseptal ischemia on the nuclear stress test. Cardiac catheterization showed left main disease of 60-70%, extending into the proximal circumflex, mid LAD of 70%, and 70% ostial lesion of the left circumflex, and no significant right coronary artery disease. She was recommended surgical intervention for which she is scheduled on Monday, on 12/11. Past medical history is positive for diabetes mellitus type 2, hypertension, hyperlipidemia, hypothyroidism, peripheral vascular disease status post right fem-pop bypass, previous nicotine dependence, quit smoking 10 years ago, carries [id number] smoking history, DVT with previous Coumadin use , paroxysmal atrial fibrillation, chronic back pain, obesity and depression. Patient had a spirometry PFT in November 2016 which showed FEV1 of 109%. We are seeing this patient in consultation for pulmonary management for the upcoming coronary artery bypass grafting surgery. On today's evaluation of a 12/18/2017 Carolyn is back to the intensive care unit. She is postop day #7 following her coronary artery bypass surgery. She got transferred because of an extensive liquidy/watery diarrhea which left her into a dehydrated state and causes some non-anion gap metabolic acidosis. Her bicarb level is down to 14. She had 3 additional liquidy bowel movements this morning. The patient was seen by general surgery. CAT scan of the abdomen was done raising the possibility of an underlying ischemic colitis. She was placed on accommodation Zosyn and vancomycin. No fever or chills. She also had gone into atrial fibrillation. The rate is controlled right now with metoprolol and amiodarone and the patient is also on IV heparin. She is complaining of pain throughout her chest and body mainly in the joints and she has been taken hydrocodone outpatient basis. I restarted her on [place] 5 every 6 hours for pain control pH is using incentive spirometer. She is on IV fluids and she'll be started on a bicarb drip. The patient's chest x-ray from today showed small bilateral pleural effusion and basilar atelectasis and left lung base. There is also artifact from external objects on the chest x-ray. The postoperative echocardiogram showed a preserved LV function with an ejection fraction of 50-55 %. No valvular abnormalities noted. On today's evaluation of 12/19/2017, the patient is awake and alert and sitting up on a chair. The diarrhea has subsided significantly. She only had liquidy loose bowel movement there was small amount this morning. Otherwise, the patient is was resuscitated IV fluids. The patient received a bicarb infusion yesterday and her serum bicarb normalizes and earlier this morning associated to a normal saline infusion at the rate of 75 mL an hour. Her urine output is around 20-25 mL an hour. The patient's creatinine is normal. BUN is down to 7. Vascular electrodes are all within normal limits and her bicarb level is normalized. No nausea. No vomiting. No abdominal pain. She is taking clear liquid diet. No chest pain. Chest x-ray shows some mild pulmonary vascular congestion and atelectatic changes in lung bases bilaterally. She is on room air oxygen. Sternum stable clean and intact. She has E. coli in the urine and she is on IV Zosyn. Vancomycin was discontinued. IV heparin was discontinued. Her current rhythm is sinus. On 12/20/2017 the patient developed some vague abdominal pain. This pain started approximately 4 AM in the morning. As mentioned earlier the patient is postop from coronary artery bypass surgery and she is postop day #8. The patient is currently in the intensive care unit. X-ray of the chest was done this morning and it showed free air under the diaphragm. This is consistent with pneumoperitoneum and the patient will need further investigation. Immediately the general surgeon was contacted and the patient had a CAT scan of the abdomen and it showed moderate pneumoperitoneum with site of the perforation i not identified although there was suspicion that maybe the distal stomach/duodenal area. The patient currently on IV Zosyn. No cervical leukocytosis. Urine output is dropped down to 20 mL an hour. Her white count from this morning's at 14.3. Patient be taken to the operating room for an expected laparotomy. No altered mentation. No cough or sputum production. No other complaints otherwise for now. On 12/21/2017 I'm seeing this patient for a follow-up. She is a critically ill female patient was taken to the operating room yesterday for an acute bowel perforation. The patient was found to have pneumoperitoneum and the patient was taken to the operating room and the patient underwent expiratory laparotomy and right colectomy and transverse colectomy and takedown of splenic flexure and diverticular colostomy. The patient intraoperatively was found to have necrosis of the transverse colon and the right colon. Postop, the patient was kept intubated and the patient was moved to the intensive care unit for further evaluation and management. Overnight the patient was given fluid aggressively. She was given IV albumin. She was given lactated Ringer solution and normal saline solution. She did drop her pressure and she had also to placed on pressors and she is currently on 3-4 mics of norepinephrine infusion to maintain a mean artery pressure above 65. This morning I give her another liter of lactated Ringer and nontender albumin 5% to bring her CVP above 12. Hemoglobin dropped down to 6.7. Her white count came up to 31.4 and subsequently dropped down to 23. This is expected as the patient had a bowel necrosis and intra-abdominal sepsis. Antibiotic dressings were done and the patient was placed on Merrem and Eraxis. Earlier this morning the patient was on assist-control mode of ventilation and was obvious that the patient was asynchronous and double stacking on a mechanical ventilator. This was occurring even while on 40 mics of Diprivan infusion. Based on this, necessary vent changes were done. The patient was air hungry and she was taken significantly high tidal volumes. I was able to bring the tidal volume of 600 and the rate of 18 with a FiO2 of 40% and a PEEP of 5. Chest x-ray from today showed that the patient had adequate expansion of both lungs. There is a left- sided pleural effusion and ET tube is around 3-4 cm above the al. The net fluid balance over the past 24 hours is +6 L in the urine output is adequate for now. The patient is afebrile. On 12/22/2017 I'm seeing this patient for a follow-up. Note that the patient is postop day #2 following chest was colectomy, right colectomy and ileostomy and the patient is postop day #11 following her coronary artery bypass surgery. This morning the patient was sedated with Diprivan and she was calm and comfortable. Despite being on Diprivan, the patient was easily arousable. She was maintained on assist control mode of ventilation. Throughout the night the patient was an assist-control at the rate of 20 with a tidal volume of 600 and FiO2 of 40% and PEEP of 5. Chest x-ray showing the development of a left-sided pleural effusion. ET tube is in a good location. Rest of the lungs are all in good location is. NG tube is also in place. The blood gases from this morning showed a pH of 7.42 with a pCO2 of 26 and pO2 of 100. No significant orotracheal secretions. Hemodynamically, the patient was aggressively resuscitated IV fluids. She is in a positive fluid balance in order of 6 L at least and the patient was taken off pressors and she's been off the norepinephrine infusion for now. She is producing adequate amount of urine output. She does have a component of non-anion gap metabolic acidosis with a bicarb level of 16. Renal function stable with a creatinine of 0.9. Rest of the electrolytes are all within normal limits. Her white cell count peaked at 27.5 and currently is down to 25. She remains on a broad-spectrum antibiotics including IV Merrem and Ecaris. The cardiac rhythm remains sinus. CVP is somewhat between 10 and 13. Urine output is order of 30-40 mL an hour. Angiopathy was noted. There is also minimal amount of liquidy material within the ileostomy back. Surgical wound site is open and a superior and inferior portion and the wound VAC will be applied to that area. There is no active drainage at this point in time. Based on all this, I give the patient is sedation holiday. She woke up very nicely and she was able to follow commands and answers questions appropriately. Weaning parameters were checked and the patient had a tidal volume of 510 with a vital capacity of 780 within this of 27 and the rapid shallow breathing index of 34. She was given a CPAP trial and following that the patient was extubated to a nasal cannula pH is tolerated extubation without any major difficulties. At this point in time, the patient is extubated, she is following commands and answering questions appropriately. Family is at the bedside. On 12/23/2017, the patient remains extubated. She is postop day #3 following a right colectomy, transverse colectomy and ileostomy and she is postop day #12 following her coronary artery bypass surgery. I was able to wean the patient off the mechanical ventilator and she extubated very nicely without having any major difficulties and currently is on 2 L of oxygen by nasal cannula. Her chest x-ray continues to show a large left-sided pleural effusion. Earlier this morning he was given 40 mg of IV Lasix which improved her urine function and output and the patient is producing more than 50 mL of urine output on hourly basis. She is nothing by mouth. NG tube is in place. Her CVP remains somewhere between 11 and 18. She is producing up to 50 mL of urine output on hourly basis. Rule out able to apply wound VAC to her abdominal wall wound and the open incisions are well covered and she is producing approximately 600 mL of material from the wound VAC system was inserted yesterday. Sternum is stable clean and intact. She is weak and a bit lethargic, slightly worse compared to yesterday and this is probably attributed to her inability to fall asleep throughout the night. No active pain. She is weak. She denies having any specific complaints for now. TPN was started as the patient's pre-albumin and albumin and total protein is extremely low. Serum bicarb is gradually improving is up to 19. On 12/24/2017, the patient is awake and alert and she is postop day #4 from her bowel surgery and postop day #13 from her cardiac surgery. She is awake and alert and she is communicating. She is on 2 L about 2 by nasal cannula. No respiratory distress. She is diuresing and the chest x-ray shows improvement in the volume status and the patient was started on IV Lasix today. She was already producing approximately 40-50 mL an hour of urine output. NG tube is in place and output has been 100 mL over the past 24 hours. The patient has approximately 120cc of output and had ileostomy site. The wound VAC is also in place and the output has been not considerably high. She is doing well. Cardiac rhythm remains in normal sinus mechanism. The patient has TPN for nutritional support. Hemodynamically stable. No hypotension. No pressors requirements. No other significant events overnight. No altered mentation. On 12/25/2017, patient is postoperative day #5 from her bowel surgery, and postoperative day #14 from cardiac surgery. Patient is doing well, she is on 2 L nasal cannula, in no form of distress. Sitting at a bedside chair, asymptomatic. Chest x-ray is suggestive of a good sized left-sided pleural effusion, hence I recommended ultrasound of the chest to be done, may require left-sided thoracentesis. The ultrasound did show good sized left-sided pleural effusion, and I think I will recommend thoracentesis in the next 24 hours. All labs were reviewed including his CBC and renal profile. Clinically the patient is actually doing well. On 12/26/2017, patient is postoperative day #6 from her bowel surgery and postoperative day #15 from cardiac surgery. Remains on 2 L nasal cannula, in no distress, chest x-ray is showing improvement in her bilateral pleural effusions especially the left one. I was planning thoracentesis done the patient today, but considering the patient has excellent urine output, and the pleural effusion seems to be better, will cancel plans for left-sided thoracentesis today. Labs were reviewed, relatively normal electrolytes, and a relatively normal CBC except for hemoglobin of 7.8 which seems to be holding. Patient is asymptomatic, denies any shortness of breath no cough no wheezing no chest pain. No nausea no vomiting no abdominal pain. Her nasogastric tube was pulled out today. We'll start on clear liquids. Reevaluated today on 12/27/2017, patient is postoperative day #7. From her bowel surgery and postoperative day #16 from cardiac surgery. On 2 L nasal cannula, asymptomatic, chest x-ray is basically about the same, small left- sided pleural effusion is noted. Patient is asymptomatic. Labs were reviewed WBC count is 18.7 hemoglobin 8.3 basic metabolic profile is normal renal profile is normal. The patient is seen again today 12/28/2017 in follow-up on the selective care unit. She is now status post operative day #8 from bowel surgery and postoperative day #17 for coronary artery bypass graft surgery. She is currently awake and alert in no acute distress. She is resting quite comfortably in bed. She denies any worsening shortness of breath, cough or congestion. No chills or night sweats. She is working well with the incentive spirometer. White count 15.6. Hemoglobin 7.3. Creatinine 0.71. Ostomy is functional. She is tolerating her diet. Objective - Vital Signs Vital signs: Vital Signs Temp 97.1 F L 12/28/17 08:00 Pulse 81 12/28/17 13:18 Resp 16 12/28/17 13:18 BP 150/82 12/28/17 11:30 Pulse Ox 98 12/28/17 11:30 Intake & Output 12/27/17 12/28/17 12/28/17 18:59 06:59 18:59 Intake Total 1220 220 370 Output Total 1335 1255 800 Balance -115 -1035 -430 Weight 98 kg Intake: IV 300 100 Anidulafungin 200 mg In 200 Sodium Chloride 0.9% 200 ml @ 84 mls/hr IVPB ONCE ONE Rx#:[id number] Meropenem 2 gm In Sodium 100 100 Chloride 0.9% 100 ml @ 200 mls/hr IVPB Q12HR [facility] Rx#:[id number] Oral 920 120 370 Output: Urine 935 1255 800 Stool 400 Other: Voiding Method Indwelling Catheter Indwelling Catheter Indwelling Catheter # Voids 0 # Bowel Movements 1 ABP, PAP, CO, CI - Last Documented Arterial Blood Pressure 159/93 Pulmonary Artery Pressure 4/4 Cardiac Output 4.5 Cardiac Index 2.5 - Exam - Constitutional General appearance: Present: Awake, alert and oriented in no acute distress - Respiratory Details: Lungs sounds scattered rhonchi bilaterally, crackles in the posterior bases.. Respirations even, nonlabored. Currently on 2 L/m with oxygen saturation 98%. Able to achieve 7560-9682 mL on her incentive spirometry. Effective cough. - Cardiovascular Details: S1, S2 present. Regular rate and rhythm, sinus rhythm on telemetry. Palpable peripheral pulses bilaterally. No edema present. No calf pain or tenderness noted. - Gastrointestinal Gastrointestinal Comment(s): Abdomen soft, nontender, nondistended. Active bowel sounds 4 quadrants. Tolerating diet. - Genitourinary Genitourinary Comment(s): Continues to void clear, yellow urine. - Integumentary Integumentary Comment(s): Skin is warm and dry with evidence of good perfusion. Left groin soft, nontender, no drainage. - Neurologic Neurologic: Present: CNII-XII intact - Musculoskeletal Musculoskeletal Comment(s): Walks with cane. Musculoskeletal: Present: Weak - Psychiatric Psychiatric: Present: A&O x's 2, - Labs CBC & Chem 7: 12/28/17 06:10 12/28/17 06:10 Labs: Abnormal Lab Results - Last 24 Hours (Table) 12/27/17 12/27/17 12/28/17 Range/Units 17:10 20:32 01:50 WBC (3.8-10.6) k/uL RBC (3.80-5.40) m/uL Hgb (11.4-16.0) gm/dL Hct (34.0-46.0) % MCHC (31.0-37.0) g/dL RDW (11.5-15.5) % Plt Count (150-450) k/uL Neutrophils # (1.3-7.7) k/uL Sodium (137-145) mmol/L BUN (7-17) mg/dL POC Glucose (mg/dL) 131 H 107 H 105 H (75-99) mg/dL Calcium (8.4-10.2) mg/dL Alkaline Phosphatase (38-126) U/L Total Protein (6.3-8.2) g/dL Albumin (3.5-5.0) g/dL 12/28/17 12/28/17 12/28/17 Range/Units 06:10 06:10 11:24 WBC 15.6 H (3.8-10.6) k/uL RBC 2.72 L (3.80-5.40) m/uL Hgb 7.3 L (11.4-16.0) gm/dL Hct 24.2 L (34.0-46.0) % MCHC 30.2 L (31.0-37.0) g/dL RDW 15.8 H (11.5-15.5) % Plt Count 521 H (150-450) k/uL Neutrophils # 12.6 H (1.3-7.7) k/uL Sodium 133 L (137-145) mmol/L BUN 22 H (7-17) mg/dL POC Glucose (mg/dL) 118 H (75-99) mg/dL Calcium 8.2 L (8.4-10.2) mg/dL Alkaline Phosphatase 385 H (38-126) U/L Total Protein 4.6 L (6.3-8.2) g/dL Albumin 1.9 L (3.5-5.0) g/dL Assessment and Plan Assessment: Impression: #1. Multivessel coronary artery disease, involving left main coronary artery. Status post coronary artery bypass grafting. Postoperative day #17. #2. Acute sepsis secondary to an acute perforated viscus with necrosis of the transverse and right colon and the patient is status post right colectomy, transverse colectomy and takedown of splenic flexure with ileostomy. Postoperative day #8 #3. Acute hypoxic respiratory failure secondary to above, recovered. #4. Diabetes mellitus 2 #5. Obesity #6. Peripheral vascular disease #7. History of nicotine dependence, currently in remission, quit 10 years ago, carries [id number] smoking history #8. Hypothyroidism #9. Paroxysmal atrial fibrillation, currently in sinus rhythm #10. Chronic low back pain #11. Depression #12. Urinary tract infection secondary to E. coli, follow-up culture negative #13. Hypertension. Plan: The patient was seen and evaluated by Dr. Chavez. Chest x-ray and labs were reviewed. She continues to improve clinically and radiographically. Continue with her current in the form of meropenem.. Continue to work with and encourage the increased use the incentive spirometer. We will increase her activity as tolerated. We will continue to follow and make further recommendations based on her clinical status. I, the cosigning physician, performed a history & physical examination of the patient. Lungs sounds with bilateral scattered rhonchi, crackles in the bases. Maintaining good O2 saturations in the 90s on 2L per nasal canula. I discussed the assessment and plan of care with my nurse practitioner, Anne Marie Javed. I attest to the above note as dictated by her.
--- NOTE | 2017-12-28 14:55 | P.PN ---
Subjective Progress Note Date: 12/28/17 This is a pleasant 72-year-old female who lives status post coronary artery bypass grafting, and status post right colectomy for acute perforated viscus and necrosis of the transverse and right colon. She was seen and examined today on the telemetry unit. She is postoperative day 8 from bowel surgery and postoperative day 17 from her bypass surgery. Patient was sitting up in the chair at the time of her examination today. States that her abdominal discomfort today is much improved. Doing well on her incentive spirometry. Ostomy is functional. Blood pressure 140/80 heart rate in the 80s , 98% on 2 L of oxygen. White blood cell count 15.6, hemoglobin 7.3, platelet count 521. Sodium 133, potassium 4.2, BUN 22, creatinine 0.7. Objective - Vital Signs Vital signs: Vital Signs Temp 97.1 F L 12/28/17 08:00 Pulse 81 12/28/17 13:18 Resp 16 12/28/17 13:18 BP 150/82 12/28/17 11:30 Pulse Ox 98 12/28/17 11:30 Intake & Output 12/27/17 12/28/17 12/28/17 18:59 06:59 18:59 Intake Total 1220 220 370 Output Total 1335 1255 800 Balance -115 -1035 -430 Weight 98 kg 98 kg Intake: IV 300 100 Anidulafungin 200 mg In 200 Sodium Chloride 0.9% 200 ml @ 84 mls/hr IVPB ONCE ONE Rx#:[id number] Meropenem 2 gm In Sodium 100 100 Chloride 0.9% 100 ml @ 200 mls/hr IVPB Q12HR [facility] Rx#:[id number] Oral 920 120 370 Output: Urine 935 1255 800 Stool 400 Other: Voiding Method Indwelling Catheter Indwelling Catheter Indwelling Catheter # Voids 0 # Bowel Movements 1 ABP, PAP, CO, CI - Last Documented Arterial Blood Pressure 159/93 Pulmonary Artery Pressure 4/4 Cardiac Output 4.5 Cardiac Index 2.5 - Exam PHYSICAL EXAMINATION: GENERAL: 72-year-old female in no acute distress at the time of my examination HEENT: Head is atraumatic, normocephalic. Pupils equal, round. Sclera anicteric. Conjunctiva are clear. Mucous membranes of the mouth are moist. Neck is supple. There is no elevated jugular venous pressure.] bruit is heard. HEART EXAMINATION: Heart S1, S2 normal. No murmur or gallop heard. CHEST EXAMINATION: Lungs reveal scattered coarse rhonchi throughout with crackles to the bases. ABDOMEN: Soft, nontender. Bowel sounds are heard. No organomegaly noted. EXTREMITIES: 2+ peripheral pulses with no evidence of peripheral edema and no calf tenderness noted. NEUROLOGIC patient is awake, alert and oriented ?-3. . - Labs CBC & Chem 7: 12/28/17 06:10 12/28/17 06:10 Labs: Abnormal Lab Results - Last 24 Hours (Table) 12/27/17 12/27/17 12/28/17 Range/Units 17:10 20:32 01:50 WBC (3.8-10.6) k/uL RBC (3.80-5.40) m/uL Hgb (11.4-16.0) gm/dL Hct (34.0-46.0) % MCHC (31.0-37.0) g/dL RDW (11.5-15.5) % Plt Count (150-450) k/uL Neutrophils # (1.3-7.7) k/uL Sodium (137-145) mmol/L BUN (7-17) mg/dL POC Glucose (mg/dL) 131 H 107 H 105 H (75-99) mg/dL Calcium (8.4-10.2) mg/dL Alkaline Phosphatase (38-126) U/L Total Protein (6.3-8.2) g/dL Albumin (3.5-5.0) g/dL 12/28/17 12/28/17 12/28/17 Range/Units 06:10 06:10 11:24 WBC 15.6 H (3.8-10.6) k/uL RBC 2.72 L (3.80-5.40) m/uL Hgb 7.3 L (11.4-16.0) gm/dL Hct 24.2 L (34.0-46.0) % MCHC 30.2 L (31.0-37.0) g/dL RDW 15.8 H (11.5-15.5) % Plt Count 521 H (150-450) k/uL Neutrophils # 12.6 H (1.3-7.7) k/uL Sodium 133 L (137-145) mmol/L BUN 22 H (7-17) mg/dL POC Glucose (mg/dL) 118 H (75-99) mg/dL Calcium 8.2 L (8.4-10.2) mg/dL Alkaline Phosphatase 385 H (38-126) U/L Total Protein 4.6 L (6.3-8.2) g/dL Albumin 1.9 L (3.5-5.0) g/dL Assessment and Plan Plan: Assessment and plan #1. Multivessel coronary artery disease, involving left main coronary artery. Status post coronary artery bypass grafting. Postoperative day #17. #2. Acute sepsis secondary to an acute perforated viscus with necrosis of the transverse and right colon and the patient is status post right colectomy, transverse colectomy and takedown of splenic flexure with ileostomy. Postoperative day #8 #3. Acute hypoxic respiratory failure secondary to above, recovered. #4. Diabetes mellitus 2 #5. Obesity #6. Peripheral vascular disease #7. History of nicotine dependence, currently in remission, quit 10 years ago, carries [id number] smoking history #8. Hypothyroidism #9. Paroxysmal atrial fibrillation, currently in sinus rhythm #10. Chronic low back pain #11. Depression #12. Urinary tract infection secondary to E. coli, follow-up culture negative #13. Hypertension. Plan From cardiology's perspective, we'll recommend to continue the patient on her current medications. She is doing quite well overall. We will continue to follow. DNP note has been reviewed, I agree with a documented findings and plan of care. Patient was seen and examined.
[2017-12-28 16:22] LABS: Glucose,Whole Blood 119 mg/dL (75-99)
[2017-12-28 20:47] LABS: Glucose,Whole Blood 130 mg/dL (75-99)
[2017-12-29 02:06] LABS: Glucose,Whole Blood 116 mg/dL (75-99)
[2017-12-29] MEDS: INSULIN ASPART 100 UNIT/ML 1 ML 10 ML VIAL SQ SCH ×5 (03:07→21:36)
[2017-12-29] MEDS: LEVOTHYROXINE 75 MCG TAB PO SCH (05:55)
[2017-12-29 06:05] LABS: Glucose,Whole Blood 109 mg/dL (75-99)
--- NOTE | 2017-12-29 06:14 | PN ---
PROGRESS NOTE DATE OF SERVICE: 12/28/2017 PRESENTING COMPLAINT: Status post CABG. INTERVAL HISTORY: Patient is status post CABG followed by ischemic bowel and bowel perforation resulting in ostomy and a wound VAC in place. The patient has been advanced to soft bland diet. Colostomy continues to work. Has been out of bed. Breathing is getting better, moved to the telemetry floor. REVIEW OF SYSTEMS: Done for constitutional, cardiovascular, GI, pulmonary; relevant findings as above. CURRENT MEDICATIONS: Current medications are reviewed that include DuoNeb, p.o. Cordarone, Norvasc, antifungal, Lipitor, Plavix, Cymbalta, IV Lasix, Synthroid, IV meropenem, OxyContin. PHYSICAL EXAMINATION: Temperature 97.4, pulse 76, respiration 18, blood pressure 115/72, pulse ox 100% on 2 L. GENERAL APPEARANCE: Lying in bed, awake. EYES: Pupils equal. Conjunctive normal. HENT: External appearance of nose and ear normal. Oral cavity normal. NECK: JVD unable to assess. Mass not palpable. RESPIRATORY: Effort increased. LUNGS: Decreased breath sounds. CARDIOVASCULAR: Heart sounds muffled. Some edema. ABDOMEN: Soft, nontender. Stool in colostomy bag. Wound VAC in place. Liver and spleen not palpable. PSYCHIATRY: Alert and oriented x3. Mood and affect normal. INVESTIGATIONS: White count 15.6, hemoglobin 7.3, platelets 521. Potassium 4.2. Accu-Cheks are noted. Albumin 1.9. Chest x-ray shows pleural effusions. ASSESSMENT: 1. Coronary artery disease, status post bypass on 12/11/2017. 2. Acute ischemic bowel with perforation with right transverse colectomy and takedown of the splenic flexure with resultant colostomy, which is functioning. 3. Wound VAC in place. 4. Acute hypoxic respiratory failure, status post ventilator support. 5. Hypotensive shock and septic shock, now recovered. Patient remains on antifungals and meropenem. 6. Paroxysmal atrial fibrillation, now in sinus rhythm. 7. Peripheral arterial disease. 8. Hypothyroid. 9. Diabetes mellitus type 2. 10.Chronic low back pain from arthritis. 11.Depression, not otherwise specified. 12.Obesity; body mass index 34.3. 13.Acute blood loss anemia expected from surgery and hospital acquired from blood draws. 14.Hyperlipidemia. 15.Hypoalbuminemia as an acute phase reactant. 16.Bilateral pleural effusions, left greater than right, being medically managed, not for thoracentesis per Pulmonary. 17.Essential hypertension. Care was discussed with the patient. Diet has already been advanced. PT, OT is already on the case. Will follow. MMODL / IJN: [id number] /
[2017-12-29 06:43] LABS: Basophils # (A) 0.1 k/uL (0-0.2); Basophils % (A) 1 %; Eosinophils # (A) 0.4 k/uL (0-0.7); Eosinophils % (A) 2 %; HCT 24.8 % (34.0-46.0); HGB 7.5 gm/dL (11.4-16.0); Hypochromasia Slight; Lymphocytes % (A) 5 %; MCH 26.5 pg (25.0-35.0); MCHC 30.2 g/dL (31.0-37.0); MCV 87.9 fL (80.0-100.0); Mean Platelet Volume 7.1; Monocytes % (A) 5 %; Neutrophils # (A) 17.3 k/uL (1.3-7.7); Neutrophils % (A) 86 %; Platelet Count 638 k/uL (150-450); RBC 2.83 m/uL (3.80-5.40); RDW 15.5 % (11.5-15.5); WBC 20.1 k/uL (3.8-10.6)
[2017-12-29 06:59] LABS: ALT 29 U/L (9-52); AST 25 U/L (14-36); Albumin 1.9 g/dL (3.5-5.0); Alkaline Phosphatase 345 U/L (38-126); Anion Gap 5 mmol/L; Blood Urea Nitrogen 19 mg/dL (7-17); Calcium 8.4 mg/dL (8.4-10.2); Carbon Dioxide 28 mmol/L (22-30); Chloride 100 mmol/L (98-107); Glucose 98 mg/dL (74-99); Potassium 3.8 mmol/L (3.5-5.1); Sodium 133 mmol/L (137-145); Total Bilirubin 0.5 mg/dL (0.2-1.3); Total Protein 4.6 g/dL (6.3-8.2)
--- NOTE | 2017-12-29 07:33 | XR ---
EXAMINATION TYPE: XR chest 2V DATE OF EXAM: 12/29/2017 COMPARISON: 12/28/2017 HISTORY: 72 year-old female post cardiac surgery TECHNIQUE: Frontal and lateral views FINDINGS: Heart upper limits of normal in size. Median sternotomy wires are present. Suspect large calcified ly mph node in the subcarinal region. Small to moderate left and small right pleural effusions with eliseo cent opacity. Findings are improving on the left. Advanced degenerative changes of both shoulders. IMPRESSION: Small to moderate left and small right pleural effusions with adjacent atelectasis and/or consolidati on with some improvement on the left.
[2017-12-29] MEDS: oxyCODONE ER 20 MG TAB.ER.12H PO SCH ×3 (07:58→23:47)
[2017-12-29] MEDS: HEPARIN SODIUM,PORCINE 5,000 UNIT/ML 1 ML VIAL SQ SCH ×3 (07:59→23:49)
[2017-12-29] MEDS: ANIDULAFUNGIN 100 MG in SODIUM CHLORIDE 0.9% 100 ML IVPB SCH (07:59)
[2017-12-29] MEDS: FUROSEMIDE 10 MG/ML 2 ML VIAL IV SCH ×2 (08:00→22:02)
[2017-12-29] MEDS: ATORVASTATIN 40 MG TAB PO SCH (08:00)
[2017-12-29] MEDS: PANTOPRAZOLE 40 MG/10 ML VIAL IVP SCH (08:00)
[2017-12-29] MEDS: hydrALAZINE HCL 10 MG TAB PO SCH ×2 (08:00→23:47)
[2017-12-29] MEDS: DULoxetine HCL 60 MG CAPSULE.DR PO SCH (08:00)
[2017-12-29] MEDS: CLOPIDOGREL 75 MG TAB PO SCH (08:00)
[2017-12-29] MEDS: METOPROLOL TARTRATE 25 MG TAB PO SCH ×2 (08:01→22:03)
[2017-12-29] MEDS: ASPIRIN 81 MG PO SCH (08:01)
[2017-12-29] MEDS: AMIODARONE 200 MG TAB PO SCH (08:01)
[2017-12-29] MEDS: IPRATROPIUM-ALBUTEROL 3 ML NEB INHALATION SCH ×4 (08:34→20:07)
--- NOTE | 2017-12-29 09:20 | CDI ---
Last Revision, March 2017 Documentation Clarification Form Date: 12/28/17 From: Hillary Sweeney Admit Date: 12/08/2017 8:14:00 AM Patient Name: Carolyn Sellers Visit Number: [id number] ATTENTION: The Clinical Documentation Specialists (CDI) and [facility] Coding Staff appreciate your assistance in clarifying documentation. Please respond to the clarification below the line at the bottom and electronically sign. The CDI & [facility] Coding staff will review the response and follow-up if needed. Please note: Queries are made part of the Legal Health Record. If you have any questions, please contact the author of this message via ITS. Dr. Faustino Chavez MD, Can you please render your opinion on the following documentation? Patient was admitted for a positive stress test. Had a cardiac cath. on 12/08, on 12/11 had a CABG. On 12/20 Pt had a right colectomy, transverse colectomy, takedown splenic flexure, and ileostomy. Intubation x 2. Patient history/risk factors Clinical Indicators: 12/27: Acute hypoxic respiratory failure, status post ventilator support 12/11: ABG PO2 297 - HC03 26 - TOTAL O2 27 Radiology findings: CXR 12/16: Acute sepsis with mild colitis and ongoing diarrhea, possible bilateral infiltrates suspect pneumonia. Vital Signs on admission 98.2, P 82, R 18, 153/80, 93% RA Treatment: Duoneb Antibiotics: Cefazolin IVPB, Rocephin IVPB, Meropenem IVPB, Piperacillin IVPB 2L nasal cannula Consults: Pulmonary Daily weights and I & Os In your professional opinion, can you please clarify the following? ARDS ruled in ARDS ruled out Other, please specify Unable to determine There is no clear evidence of ARDS per Dr. Chavez _ MTDD
--- NOTE | 2017-12-29 09:48 | P.PN ---
Subjective Progress Note Date: 12/29/17 Principal diagnosis: Coronary artery disease with critical left main disease. Preserved left ventricular function. Previous medical history of hypertension, hyperlipidemia , diabetes mellitus with preoperative hemoglobin A1c 8.1%, hypothyroid, chest granulomatous disease, peripheral vascular disease status post right fem-pop bypass, previous tobacco dependence with FEV1 109% of predicted in November 2016, recent fall in June 2017 with torn right rotator cuff, questionable DVT with previous Coumadin use greater than 2 years ago, syncopal episodes, paroxysmal atrial fibrillation, chronic low back pain, obesity, and depression. Preoperative E. coli urinary tract infection. POD #18 urgent quadruple coronary artery bypass grafting using the left internal mammary sequentially to the diagonal artery and to the left anterior descending artery, reverse saphenous vein graft from the aorta to the first obtuse marginal, reverse saphenous vein graft from the aorta to the third obtuse marginal artery. Bilateral pulmonary vein isolation using the AtriCure radiofrequency clamp. Exclusion of the left atrial appendage using a 35 mm AtriClip. Intraoperative transesophageal echocardiogram and epi-aortic scanning. Postoperative elevation in transaminases, an unexpected outcome, resolving. Leukocytosis, present preoperatively. Postoperative diarrhea, an unexpected outcome. Postoperative normocytic, normochromic anemia, and expected outcome of surgery secondary to cardiopulmonary bypass and hemodilution. Postoperative urinary retention, an unexpected outcome. Postoperative pneumoperitoneum, an unexpected outcome. Necrosis of the transverse colon, right colon, an unexpected outcome. Sepsis, septic shock, an unexpected outcome. POD #8 right colectomy, transverse colectomy, takedown splenic flexure, ileostomy performed by Dr. Montoya. Postoperative prolonged mechanical ventilation, need to be reintubated for second surgery, an unexpected outcome. Postoperative left-sided pleural effusion, an unexpected outcome, resolving. Patient's currently sitting up in a chair in no acute distress. Complains of back pain and mild abdominal pain but hasn't had her morning pain medication yet , and hasn't taken any PRN Tylenol. Spends most of her time lying in bed, only wants to get out of bed for meals. Has minimally worked with physical and occupational therapy, she has not ambulated outside of her room yet. Wound VAC remains. Ileostomy is functioning with brown stool. Patient is tolerating her diet. Objective - Vital Signs Vital signs: Vital Signs Temp 97.9 F 12/28/17 20:00 Pulse 76 12/29/17 08:42 Resp 17 12/29/17 07:56 BP 148/74 12/29/17 07:56 Pulse Ox 97 12/29/17 07:56 Intake & Output 12/28/17 12/29/17 12/29/17 18:59 06:59 18:59 Intake Total 610 90 Output Total 800 500 0 Balance -190 -500 90 Weight 98 kg Intake: Oral 610 90 Output: Urine 800 500 Uretheral (Almaguer) 500 Post Void Residual 0 Other: Voiding Method Indwelling Catheter Diaper Diaper # Voids 0 1 # Bowel Movements 1 ABP, PAP, CO, CI - Last Documented Arterial Blood Pressure 159/93 Pulmonary Artery Pressure 4/4 Cardiac Output 4.5 Cardiac Index 2.5 - Constitutional General appearance: Present: cooperative, no acute distress, obese - Respiratory Details: Lungs sounds diminished bilaterally, left side greater than right. Respirations even, nonlabored. Currently on 1 L nasal cannula with oxygen saturation 98%. Able to achieve 1000 mL on her incentive spirometry. Strong cough. - Cardiovascular Details: S1, S2 present. Regular rate and rhythm, sinus rhythm on telemetry. Sternum stable. Palpable peripheral pulses bilaterally. Generalized nonpitting edema present but decreasing. Right upper basilic vein midline catheter present. Antiembolism stockings, SCDs present. - Gastrointestinal Gastrointestinal Comment(s): Abdomen soft, nondistended. Active bowel sounds present. Right lower quadrant ileostomy present with dark brown liquid stool. Tolerating diet. - Genitourinary Genitourinary Comment(s): Almaguer discontinued yesterday. Patient did have to be straight cathed this morning. - Integumentary Integumentary Comment(s): Skin is warm and dry. Anterior chest incision well approximated with dry intact dressing present. Left lower semi-EVH site well approximated. Midline abdominal incision clean, andrei intact, wound VAC present. - Neurologic Neurologic: Present: CNII-XII intact - Musculoskeletal Musculoskeletal: Present: generalized weakness, strength equal bilaterally - Psychiatric Psychiatric: Present: A&O x's 3, appropriate affect, intact judgment & insight - Allied health notes Allied health notes reviewed: nursing - Labs CBC & Chem 7: 12/29/17 06:28 12/29/17 06:28 Labs: Abnormal Lab Results - Last 24 Hours (Table) 12/28/17 12/28/17 12/28/17 Range/Units 11:24 16:15 20:46 WBC (3.8-10.6) k/uL RBC (3.80-5.40) m/uL Hgb (11.4-16.0) gm/dL Hct (34.0-46.0) % MCHC (31.0-37.0) g/dL Plt Count (150-450) k/uL Neutrophils # (1.3-7.7) k/uL Sodium (137-145) mmol/L BUN (7-17) mg/dL POC Glucose (mg/dL) 118 H 119 H 130 H (75-99) mg/dL Alkaline Phosphatase (38-126) U/L Total Protein (6.3-8.2) g/dL Albumin (3.5-5.0) g/dL 12/29/17 12/29/17 12/29/17 Range/Units 02:04 06:04 06:28 WBC 20.1 H (3.8-10.6) k/uL RBC 2.83 L (3.80-5.40) m/uL Hgb 7.5 L (11.4-16.0) gm/dL Hct 24.8 L (34.0-46.0) % MCHC 30.2 L (31.0-37.0) g/dL Plt Count 638 H (150-450) k/uL Neutrophils # 17.3 H (1.3-7.7) k/uL Sodium (137-145) mmol/L BUN (7-17) mg/dL POC Glucose (mg/dL) 116 H 109 H (75-99) mg/dL Alkaline Phosphatase (38-126) U/L Total Protein (6.3-8.2) g/dL Albumin (3.5-5.0) g/dL 12/29/17 Range/Units 06:28 WBC (3.8-10.6) k/uL RBC (3.80-5.40) m/uL Hgb (11.4-16.0) gm/dL Hct (34.0-46.0) % MCHC (31.0-37.0) g/dL Plt Count (150-450) k/uL Neutrophils # (1.3-7.7) k/uL Sodium 133 L (137-145) mmol/L BUN 19 H (7-17) mg/dL POC Glucose (mg/dL) (75-99) mg/dL Alkaline Phosphatase 345 H (38-126) U/L Total Protein 4.6 L (6.3-8.2) g/dL Albumin 1.9 L (3.5-5.0) g/dL - Imaging and Cardiology Chest x-ray: report reviewed, image reviewed Assessment and Plan (1) Coronary artery disease involving left main coronary artery Current Visit: Yes Status: Chronic Code(s): I25.10 - ATHSCL HEART DISEASE OF LUMMI CORONARY ARTERY W/O ANG PCTRS SNOMED Code(s): 154101767 (2) Hypertension Current Visit: Yes Status: Chronic Code(s): I10 - ESSENTIAL (PRIMARY) HYPERTENSION SNOMED Code(s): 93404937 (3) Hyperlipidemia Current Visit: Yes Status: Chronic Code(s): E78.5 - HYPERLIPIDEMIA, UNSPECIFIED SNOMED Code(s): 92762702 (4) Diabetes Current Visit: Yes Status: Chronic Code(s): E11.9 - TYPE 2 DIABETES MELLITUS WITHOUT COMPLICATIONS SNOMED Code(s): 64991635 (5) Peripheral vascular disease Current Visit: Yes Status: Chronic Code(s): I73.9 - PERIPHERAL VASCULAR DISEASE, UNSPECIFIED SNOMED Code(s): 668247406 (6) Family history of heart disease Current Visit: Yes Status: Chronic Code(s): Z82.49 - FAMILY HX OF ISCHEM HEART DIS AND OTH DIS OF THE CIRC SYS SNOMED Code(s): 144789269 (7) Tobacco dependence in remission Current Visit: No Status: Resolved Code(s): F17.201 - NICOTINE DEPENDENCE, UNSPECIFIED, IN REMISSION SNOMED Code(s): 515269050 (8) Hypothyroid Current Visit: Yes Status: Chronic Code(s): E03.9 - HYPOTHYROIDISM, UNSPECIFIED SNOMED Code(s): 98395513 (9) Syncopal episodes Current Visit: No Status: Chronic Code(s): R55 - SYNCOPE AND COLLAPSE SNOMED Code(s): 834140016 (10) History of DVT (deep vein thrombosis) Current Visit: No Status: Resolved Code(s): Z86.718 - PERSONAL HISTORY OF OTHER VENOUS THROMBOSIS AND EMBOLISM SNOMED Code(s): 507418196 (11) History of atrial fibrillation Current Visit: No Status: Resolved Code(s): Z86.79 - PERSONAL HISTORY OF OTHER DISEASES OF THE CIRCULATORY SYSTEM SNOMED Code(s): 281862018 (12) Chronic low back pain Current Visit: Yes Status: Chronic Code(s): M54.5 - LOW BACK PAIN; G89.29 - OTHER CHRONIC PAIN SNOMED Code(s): 248443128 (13) Depression Current Visit: Yes Status: Chronic Code(s): F32.9 - MAJOR DEPRESSIVE DISORDER, SINGLE EPISODE, UNSPECIFIED SNOMED Code(s): 77210170 Plan: 1. Continue low-dose aspirin, statin, Plavix, hydralazine, beta sheree, Norvasc. 2. Bronchodilators per pulmonology. 3. Continue amiodarone for A. fib prophylaxis. 4. Continue meropenem, Eraxis for [address] Mccartney. 5. Continue IV Lasix. 6. Bladder scan after each void or every 6 hours. Straight cath for > 300 mL residual. 7. Monitor daily labs, chest x-rays. 8. GI prophylaxis with Protonix. DVT prophylaxis with subcu heparin, SCDs. 9. Pain control with current medication regimen. 10. Insulin/diabetic management per primary care. 11. Wound VAC per general surgery to abdominal incisions. To be changed Monday , Monday, Monday. 12. Increase activity, ambulate in hallway. PT/OT/cardiac rehab following. 13. Discharge planning in progress. Anticipate discharge soon. Patient will need subacute rehab at discharge. 14. Per general surgery, patient can be discharged to subacute rehab with wound VAC in place and andrei remaining, to follow-up with Dr. Montoya in his office 1 week after discharge. 15. More recommendations to follow. Time with Patient: Greater than 30
[2017-12-29] MEDS: MEROPENEM 2 GM in SODIUM CHLORIDE 0.9% 100 ML IVPB SCH ×2 (10:00→22:02)
[2017-12-29] MEDS: ACETAMINOPHEN TAB 325 MG TAB PO PRN ×2 (10:43→14:46)
[2017-12-29 11:39] LABS: Glucose,Whole Blood 107 mg/dL (75-99)
--- NOTE | 2017-12-29 11:41 | P.PN ---
Subjective Progress Note Date: 12/29/17 Principal diagnosis: Ischemic colitis Patient ambulating in the room today. Tolerating diet. Denies abdominal pain currently. Afebrile. White blood cell increased to 20 today. Objective - Vital Signs Vital signs: Vital Signs Temp 97.9 F 12/28/17 20:00 Pulse 76 12/29/17 08:42 Resp 17 12/29/17 07:56 BP 148/74 12/29/17 07:56 Pulse Ox 97 12/29/17 07:56 Intake & Output 12/28/17 12/29/17 12/29/17 18:59 06:59 18:59 Intake Total 610 90 Output Total 800 500 0 Balance -190 -500 90 Weight 98 kg Intake: Oral 610 90 Output: Urine 800 500 Uretheral (Almaguer) 500 Post Void Residual 0 Other: Voiding Method Indwelling Catheter Diaper Diaper # Voids 0 1 # Bowel Movements 1 ABP, PAP, CO, CI - Last Documented Arterial Blood Pressure 159/93 Pulmonary Artery Pressure 4/4 Cardiac Output 4.5 Cardiac Index 2.5 - Exam Abdomen: Soft, nondistended, wound VAC in place, incision visible appears normal without erythema, minimal tenderness - Labs CBC & Chem 7: 12/29/17 06:28 12/29/17 06:28 Labs: Abnormal Lab Results - Last 24 Hours (Table) 12/28/17 12/28/17 12/28/17 Range/Units 11:24 16:15 20:46 WBC (3.8-10.6) k/uL RBC (3.80-5.40) m/uL Hgb (11.4-16.0) gm/dL Hct (34.0-46.0) % MCHC (31.0-37.0) g/dL Plt Count (150-450) k/uL Neutrophils # (1.3-7.7) k/uL Sodium (137-145) mmol/L BUN (7-17) mg/dL POC Glucose (mg/dL) 118 H 119 H 130 H (75-99) mg/dL Alkaline Phosphatase (38-126) U/L Total Protein (6.3-8.2) g/dL Albumin (3.5-5.0) g/dL 12/29/17 12/29/17 12/29/17 Range/Units 02:04 06:04 06:28 WBC 20.1 H (3.8-10.6) k/uL RBC 2.83 L (3.80-5.40) m/uL Hgb 7.5 L (11.4-16.0) gm/dL Hct 24.8 L (34.0-46.0) % MCHC 30.2 L (31.0-37.0) g/dL Plt Count 638 H (150-450) k/uL Neutrophils # 17.3 H (1.3-7.7) k/uL Sodium (137-145) mmol/L BUN (7-17) mg/dL POC Glucose (mg/dL) 116 H 109 H (75-99) mg/dL Alkaline Phosphatase (38-126) U/L Total Protein (6.3-8.2) g/dL Albumin (3.5-5.0) g/dL 12/29/17 12/29/17 Range/Units 06:28 11:28 WBC (3.8-10.6) k/uL RBC (3.80-5.40) m/uL Hgb (11.4-16.0) gm/dL Hct (34.0-46.0) % MCHC (31.0-37.0) g/dL Plt Count (150-450) k/uL Neutrophils # (1.3-7.7) k/uL Sodium 133 L (137-145) mmol/L BUN 19 H (7-17) mg/dL POC Glucose (mg/dL) 107 H (75-99) mg/dL Alkaline Phosphatase 345 H (38-126) U/L Total Protein 4.6 L (6.3-8.2) g/dL Albumin 1.9 L (3.5-5.0) g/dL Assessment and Plan (1) Ischemic colitis Narrative/Plan: Continue antibiotics. Continue diet as tolerated. Physical therapy. Monitor leukocytosis. Current Visit: Yes Status: Acute Code(s): K55.9 - VASCULAR DISORDER OF INTESTINE, UNSPECIFIED SNOMED Code(s): 00030652
[2017-12-29] MEDS: amLODIPine 5 MG TAB PO SCH (11:56)
[2017-12-29] MEDS: FERROUS SULFATE 325 MG TAB PO SCH (11:56)
[2017-12-29] MEDS: CYANOCOBALAMIN 500 MCG TAB PO SCH (11:56)
[2017-12-29] MEDS: ASCORBIC ACID 500 MG TAB PO SCH (11:56)
--- NOTE | 2017-12-29 14:14 | P.PN ---
Subjective Progress Note Date: 12/29/17 This is a pleasant 72-year-old female who lives status post coronary artery bypass grafting, and status post right colectomy for acute perforated viscus and necrosis of the transverse and right colon. She was seen and examined today on the telemetry unit. She is postoperative day 8 from bowel surgery and postoperative day 17 from her bypass surgery. Patient was sitting up in the chair at the time of her examination today. States that her abdominal discomfort today is much improved. Doing well on her incentive spirometry. Ostomy is functional. Blood pressure 140/80 heart rate in the 80s , 98% on 2 L of oxygen. White blood cell count 15.6, hemoglobin 7.3, platelet count 521. Sodium 133, potassium 4.2, BUN 22, creatinine 0.7. 12/29/2017 Patient seen and examined this morning, sitting up in the chair at bedside, no acute distress. Does have some mild abdominal discomfort this morning. Wound VAC remains in place, ileostomy is functioning. Blood pressure 148/70 with a heart rate in the 70s. White blood cell count 20.1, hemoglobin 7.5, platelet count 638. Sodium 133, potassium 3.8, BUN 19, creatinine 0.7. Objective - Vital Signs Vital signs: Vital Signs Temp 97.3 F L 12/29/17 11:53 Pulse 66 12/29/17 12:54 Resp 15 12/29/17 11:53 BP 166/72 12/29/17 11:53 Pulse Ox 97 12/29/17 11:53 Intake & Output 12/28/17 12/29/17 12/29/17 18:59 06:59 18:59 Intake Total 610 210 Output Total 800 500 900 Balance -190 -500 -690 Weight 98 kg Intake: Oral 610 210 Output: Urine 800 500 100 Uretheral (Almaguer) 500 Post Void Residual 0 Stool 800 Other: Voiding Method Indwelling Catheter Diaper Diaper # Voids 0 1 0 # Bowel Movements 1 ABP, PAP, CO, CI - Last Documented Arterial Blood Pressure 159/93 Pulmonary Artery Pressure 4/4 Cardiac Output 4.5 Cardiac Index 2.5 - Exam PHYSICAL EXAMINATION: GENERAL: 72-year-old female in no acute distress at the time of my examination HEENT: Head is atraumatic, normocephalic. Pupils equal, round. Sclera anicteric. Conjunctiva are clear. Mucous membranes of the mouth are moist. Neck is supple. There is no elevated jugular venous pressure.] bruit is heard. HEART EXAMINATION: Heart S1, S2 normal. No murmur or gallop heard. CHEST EXAMINATION: Lungs reveal scattered coarse rhonchi throughout with crackles to the bases. ABDOMEN: Soft, nontender. Bowel sounds are heard. No organomegaly noted. EXTREMITIES: 2+ peripheral pulses with no evidence of peripheral edema and no calf tenderness noted. NEUROLOGIC patient is awake, alert and oriented ?-3. . - Labs CBC & Chem 7: 12/29/17 06:28 12/29/17 06:28 Labs: Abnormal Lab Results - Last 24 Hours (Table) 12/28/17 12/28/17 12/29/17 Range/Units 16:15 20:46 02:04 WBC (3.8-10.6) k/uL RBC (3.80-5.40) m/uL Hgb (11.4-16.0) gm/dL Hct (34.0-46.0) % MCHC (31.0-37.0) g/dL Plt Count (150-450) k/uL Neutrophils # (1.3-7.7) k/uL Sodium (137-145) mmol/L BUN (7-17) mg/dL POC Glucose (mg/dL) 119 H 130 H 116 H (75-99) mg/dL Alkaline Phosphatase (38-126) U/L Total Protein (6.3-8.2) g/dL Albumin (3.5-5.0) g/dL 12/29/17 12/29/17 12/29/17 Range/Units 06:04 06:28 06:28 WBC 20.1 H (3.8-10.6) k/uL RBC 2.83 L (3.80-5.40) m/uL Hgb 7.5 L (11.4-16.0) gm/dL Hct 24.8 L (34.0-46.0) % MCHC 30.2 L (31.0-37.0) g/dL Plt Count 638 H (150-450) k/uL Neutrophils # 17.3 H (1.3-7.7) k/uL Sodium 133 L (137-145) mmol/L BUN 19 H (7-17) mg/dL POC Glucose (mg/dL) 109 H (75-99) mg/dL Alkaline Phosphatase 345 H (38-126) U/L Total Protein 4.6 L (6.3-8.2) g/dL Albumin 1.9 L (3.5-5.0) g/dL 12/29/17 Range/Units 11:28 WBC (3.8-10.6) k/uL RBC (3.80-5.40) m/uL Hgb (11.4-16.0) gm/dL Hct (34.0-46.0) % MCHC (31.0-37.0) g/dL Plt Count (150-450) k/uL Neutrophils # (1.3-7.7) k/uL Sodium (137-145) mmol/L BUN (7-17) mg/dL POC Glucose (mg/dL) 107 H (75-99) mg/dL Alkaline Phosphatase (38-126) U/L Total Protein (6.3-8.2) g/dL Albumin (3.5-5.0) g/dL Assessment and Plan Plan: Assessment and plan #1. Multivessel coronary artery disease, involving left main coronary artery. Status post coronary artery bypass grafting. Postoperative day #17. #2. Acute sepsis secondary to an acute perforated viscus with necrosis of the transverse and right colon and the patient is status post right colectomy, transverse colectomy and takedown of splenic flexure with ileostomy. Postoperative day #8 #3. Acute hypoxic respiratory failure secondary to above, recovered. #4. Diabetes mellitus 2 #5. Obesity #6. Peripheral vascular disease #7. History of nicotine dependence, currently in remission, quit 10 years ago, carries [id number] smoking history #8. Hypothyroidism #9. Paroxysmal atrial fibrillation, currently in sinus rhythm #10. Chronic low back pain #11. Depression #12. Urinary tract infection secondary to E. coli, follow-up culture negative #13. Hypertension. Plan From cardiology's perspective, we'll recommend to continue the patient on her current medications. She is doing quite well overall. We will continue to follow. DNP note has been reviewed, I agree with a documented findings and plan of care. Patient was seen and examined.
--- NOTE | 2017-12-29 14:27 | P.PN ---
Subjective Progress Note Date: 12/29/17 Principal diagnosis: Status post coronary artery bypass grafting, status post right colectomy for acute perforated viscus and necrosis of the transverse and right colon. Mrs. Sellers is a 72-year-old white female patient of Dr. Alcala who was undergoing cardiac evaluation for clearance for her upcoming right rotator cuff repair, was found to have inferoseptal ischemia on the nuclear stress test. Cardiac catheterization showed left main disease of 60-70%, extending into the proximal circumflex, mid LAD of 70%, and 70% ostial lesion of the left circumflex, and no significant right coronary artery disease. She was recommended surgical intervention for which she is scheduled on Monday, on 12/11. Past medical history is positive for diabetes mellitus type 2, hypertension, hyperlipidemia, hypothyroidism, peripheral vascular disease status post right fem-pop bypass, previous nicotine dependence, quit smoking 10 years ago, carries [id number] smoking history, DVT with previous Coumadin use , paroxysmal atrial fibrillation, chronic back pain, obesity and depression. Patient had a spirometry PFT in November 2016 which showed FEV1 of 109%. We are seeing this patient in consultation for pulmonary management for the upcoming coronary artery bypass grafting surgery. On today's evaluation of a 12/18/2017 Carolyn is back to the intensive care unit. She is postop day #7 following her coronary artery bypass surgery. She got transferred because of an extensive liquidy/watery diarrhea which left her into a dehydrated state and causes some non-anion gap metabolic acidosis. Her bicarb level is down to 14. She had 3 additional liquidy bowel movements this morning. The patient was seen by general surgery. CAT scan of the abdomen was done raising the possibility of an underlying ischemic colitis. She was placed on accommodation Zosyn and vancomycin. No fever or chills. She also had gone into atrial fibrillation. The rate is controlled right now with metoprolol and amiodarone and the patient is also on IV heparin. She is complaining of pain throughout her chest and body mainly in the joints and she has been taken hydrocodone outpatient basis. I restarted her on [place] 5 every 6 hours for pain control pH is using incentive spirometer. She is on IV fluids and she'll be started on a bicarb drip. The patient's chest x-ray from today showed small bilateral pleural effusion and basilar atelectasis and left lung base. There is also artifact from external objects on the chest x-ray. The postoperative echocardiogram showed a preserved LV function with an ejection fraction of 50-55 %. No valvular abnormalities noted. On today's evaluation of 12/19/2017, the patient is awake and alert and sitting up on a chair. The diarrhea has subsided significantly. She only had liquidy loose bowel movement there was small amount this morning. Otherwise, the patient is was resuscitated IV fluids. The patient received a bicarb infusion yesterday and her serum bicarb normalizes and earlier this morning associated to a normal saline infusion at the rate of 75 mL an hour. Her urine output is around 20-25 mL an hour. The patient's creatinine is normal. BUN is down to 7. Vascular electrodes are all within normal limits and her bicarb level is normalized. No nausea. No vomiting. No abdominal pain. She is taking clear liquid diet. No chest pain. Chest x-ray shows some mild pulmonary vascular congestion and atelectatic changes in lung bases bilaterally. She is on room air oxygen. Sternum stable clean and intact. She has E. coli in the urine and she is on IV Zosyn. Vancomycin was discontinued. IV heparin was discontinued. Her current rhythm is sinus. On 12/20/2017 the patient developed some vague abdominal pain. This pain started approximately 4 AM in the morning. As mentioned earlier the patient is postop from coronary artery bypass surgery and she is postop day #8. The patient is currently in the intensive care unit. X-ray of the chest was done this morning and it showed free air under the diaphragm. This is consistent with pneumoperitoneum and the patient will need further investigation. Immediately the general surgeon was contacted and the patient had a CAT scan of the abdomen and it showed moderate pneumoperitoneum with site of the perforation i not identified although there was suspicion that maybe the distal stomach/duodenal area. The patient currently on IV Zosyn. No cervical leukocytosis. Urine output is dropped down to 20 mL an hour. Her white count from this morning's at 14.3. Patient be taken to the operating room for an expected laparotomy. No altered mentation. No cough or sputum production. No other complaints otherwise for now. On 12/21/2017 I'm seeing this patient for a follow-up. She is a critically ill female patient was taken to the operating room yesterday for an acute bowel perforation. The patient was found to have pneumoperitoneum and the patient was taken to the operating room and the patient underwent expiratory laparotomy and right colectomy and transverse colectomy and takedown of splenic flexure and diverticular colostomy. The patient intraoperatively was found to have necrosis of the transverse colon and the right colon. Postop, the patient was kept intubated and the patient was moved to the intensive care unit for further evaluation and management. Overnight the patient was given fluid aggressively. She was given IV albumin. She was given lactated Ringer solution and normal saline solution. She did drop her pressure and she had also to placed on pressors and she is currently on 3-4 mics of norepinephrine infusion to maintain a mean artery pressure above 65. This morning I give her another liter of lactated Ringer and nontender albumin 5% to bring her CVP above 12. Hemoglobin dropped down to 6.7. Her white count came up to 31.4 and subsequently dropped down to 23. This is expected as the patient had a bowel necrosis and intra-abdominal sepsis. Antibiotic dressings were done and the patient was placed on Merrem and Eraxis. Earlier this morning the patient was on assist-control mode of ventilation and was obvious that the patient was asynchronous and double stacking on a mechanical ventilator. This was occurring even while on 40 mics of Diprivan infusion. Based on this, necessary vent changes were done. The patient was air hungry and she was taken significantly high tidal volumes. I was able to bring the tidal volume of 600 and the rate of 18 with a FiO2 of 40% and a PEEP of 5. Chest x-ray from today showed that the patient had adequate expansion of both lungs. There is a left- sided pleural effusion and ET tube is around 3-4 cm above the al. The net fluid balance over the past 24 hours is +6 L in the urine output is adequate for now. The patient is afebrile. On 12/22/2017 I'm seeing this patient for a follow-up. Note that the patient is postop day #2 following chest was colectomy, right colectomy and ileostomy and the patient is postop day #11 following her coronary artery bypass surgery. This morning the patient was sedated with Diprivan and she was calm and comfortable. Despite being on Diprivan, the patient was easily arousable. She was maintained on assist control mode of ventilation. Throughout the night the patient was an assist-control at the rate of 20 with a tidal volume of 600 and FiO2 of 40% and PEEP of 5. Chest x-ray showing the development of a left-sided pleural effusion. ET tube is in a good location. Rest of the lungs are all in good location is. NG tube is also in place. The blood gases from this morning showed a pH of 7.42 with a pCO2 of 26 and pO2 of 100. No significant orotracheal secretions. Hemodynamically, the patient was aggressively resuscitated IV fluids. She is in a positive fluid balance in order of 6 L at least and the patient was taken off pressors and she's been off the norepinephrine infusion for now. She is producing adequate amount of urine output. She does have a component of non-anion gap metabolic acidosis with a bicarb level of 16. Renal function stable with a creatinine of 0.9. Rest of the electrolytes are all within normal limits. Her white cell count peaked at 27.5 and currently is down to 25. She remains on a broad-spectrum antibiotics including IV Merrem and Ecaris. The cardiac rhythm remains sinus. CVP is somewhat between 10 and 13. Urine output is order of 30-40 mL an hour. Angiopathy was noted. There is also minimal amount of liquidy material within the ileostomy back. Surgical wound site is open and a superior and inferior portion and the wound VAC will be applied to that area. There is no active drainage at this point in time. Based on all this, I give the patient is sedation holiday. She woke up very nicely and she was able to follow commands and answers questions appropriately. Weaning parameters were checked and the patient had a tidal volume of 510 with a vital capacity of 780 within this of 27 and the rapid shallow breathing index of 34. She was given a CPAP trial and following that the patient was extubated to a nasal cannula pH is tolerated extubation without any major difficulties. At this point in time, the patient is extubated, she is following commands and answering questions appropriately. Family is at the bedside. On 12/23/2017, the patient remains extubated. She is postop day #3 following a right colectomy, transverse colectomy and ileostomy and she is postop day #12 following her coronary artery bypass surgery. I was able to wean the patient off the mechanical ventilator and she extubated very nicely without having any major difficulties and currently is on 2 L of oxygen by nasal cannula. Her chest x-ray continues to show a large left-sided pleural effusion. Earlier this morning he was given 40 mg of IV Lasix which improved her urine function and output and the patient is producing more than 50 mL of urine output on hourly basis. She is nothing by mouth. NG tube is in place. Her CVP remains somewhere between 11 and 18. She is producing up to 50 mL of urine output on hourly basis. Rule out able to apply wound VAC to her abdominal wall wound and the open incisions are well covered and she is producing approximately 600 mL of material from the wound VAC system was inserted yesterday. Sternum is stable clean and intact. She is weak and a bit lethargic, slightly worse compared to yesterday and this is probably attributed to her inability to fall asleep throughout the night. No active pain. She is weak. She denies having any specific complaints for now. TPN was started as the patient's pre-albumin and albumin and total protein is extremely low. Serum bicarb is gradually improving is up to 19. On 12/24/2017, the patient is awake and alert and she is postop day #4 from her bowel surgery and postop day #13 from her cardiac surgery. She is awake and alert and she is communicating. She is on 2 L about 2 by nasal cannula. No respiratory distress. She is diuresing and the chest x-ray shows improvement in the volume status and the patient was started on IV Lasix today. She was already producing approximately 40-50 mL an hour of urine output. NG tube is in place and output has been 100 mL over the past 24 hours. The patient has approximately 120cc of output and had ileostomy site. The wound VAC is also in place and the output has been not considerably high. She is doing well. Cardiac rhythm remains in normal sinus mechanism. The patient has TPN for nutritional support. Hemodynamically stable. No hypotension. No pressors requirements. No other significant events overnight. No altered mentation. On 12/25/2017, patient is postoperative day #5 from her bowel surgery, and postoperative day #14 from cardiac surgery. Patient is doing well, she is on 2 L nasal cannula, in no form of distress. Sitting at a bedside chair, asymptomatic. Chest x-ray is suggestive of a good sized left-sided pleural effusion, hence I recommended ultrasound of the chest to be done, may require left-sided thoracentesis. The ultrasound did show good sized left-sided pleural effusion, and I think I will recommend thoracentesis in the next 24 hours. All labs were reviewed including his CBC and renal profile. Clinically the patient is actually doing well. On 12/26/2017, patient is postoperative day #6 from her bowel surgery and postoperative day #15 from cardiac surgery. Remains on 2 L nasal cannula, in no distress, chest x-ray is showing improvement in her bilateral pleural effusions especially the left one. I was planning thoracentesis done the patient today, but considering the patient has excellent urine output, and the pleural effusion seems to be better, will cancel plans for left-sided thoracentesis today. Labs were reviewed, relatively normal electrolytes, and a relatively normal CBC except for hemoglobin of 7.8 which seems to be holding. Patient is asymptomatic, denies any shortness of breath no cough no wheezing no chest pain. No nausea no vomiting no abdominal pain. Her nasogastric tube was pulled out today. We'll start on clear liquids. Reevaluated today on 12/27/2017, patient is postoperative day #7. From her bowel surgery and postoperative day #16 from cardiac surgery. On 2 L nasal cannula, asymptomatic, chest x-ray is basically about the same, small left- sided pleural effusion is noted. Patient is asymptomatic. Labs were reviewed WBC count is 18.7 hemoglobin 8.3 basic metabolic profile is normal renal profile is normal. The patient is seen again today 12/28/2017 in follow-up on the selective care unit. She is now status post operative day #8 from bowel surgery and postoperative day #17 for coronary artery bypass graft surgery. She is currently awake and alert in no acute distress. She is resting quite comfortably in bed. She denies any worsening shortness of breath, cough or congestion. No chills or night sweats. She is working well with the incentive spirometer. White count 15.6. Hemoglobin 7.3. Creatinine 0.71. Ostomy is functional. She is tolerating her diet. The patient is seen again 12/29/2017 in follow-up on the selective care unit. She is currently sitting up in a chair at the bedside. She is doing better today as compared to yesterday. She denies any worsening shortness of breath, cough or congestion. Today's chest x-ray shows small to moderate left and small right pleural effusions with adjacent atelectasis with some improvement in the left. She continues to work well with the incentive spirometer. She is maintaining good O2 saturations in the upper 90s on room air. White count 20.1. Hemoglobin 7.5. Creatinine 0.71. Objective - Vital Signs Vital signs: Vital Signs Temp 97.3 F L 12/29/17 11:53 Pulse 66 12/29/17 12:54 Resp 15 12/29/17 11:53 BP 166/72 12/29/17 11:53 Pulse Ox 97 12/29/17 11:53 Intake & Output 12/28/17 12/29/17 12/29/17 18:59 06:59 18:59 Intake Total 610 210 Output Total 800 500 900 Balance -190 -500 -690 Weight 98 kg Intake: Oral 610 210 Output: Urine 800 500 100 Uretheral ([place]) 500 Post Void Residual 0 Stool 800 Other: Voiding Method Indwelling Catheter Diaper Diaper # Voids 0 1 0 # Bowel Movements 1 ABP, PAP, CO, CI - Last Documented Arterial Blood Pressure 159/93 Pulmonary Artery Pressure 4/4 Cardiac Output 4.5 Cardiac Index 2.5 - Exam - Constitutional General appearance: Present: Awake, alert and oriented in no acute distress - Respiratory Details: Lungs sounds scattered rhonchi bilaterally, crackles in the posterior bases.. Respirations even, nonlabored. Currently on 2 L/m with oxygen saturation 98%. Able to achieve 4522-5613 mL on her incentive spirometry. Effective cough. - Cardiovascular Details: S1, S2 present. Regular rate and rhythm, sinus rhythm on telemetry. Palpable peripheral pulses bilaterally. No edema present. No calf pain or tenderness noted. - Gastrointestinal Gastrointestinal Comment(s): Abdomen soft, nontender, nondistended. Active bowel sounds 4 quadrants. Tolerating diet. Ostomy functioning. - Genitourinary Genitourinary Comment(s): Continues to void clear, yellow urine. - Integumentary Integumentary Comment(s): Skin is warm and dry with evidence of good perfusion. Left groin soft, nontender, no drainage. - Neurologic Neurologic: Present: CNII-XII intact - Musculoskeletal Musculoskeletal Comment(s): Walks with cane. Musculoskeletal: Present: Weak - Psychiatric Psychiatric: Present: A&O x's 2, - Labs CBC & Chem 7: 12/29/17 06:28 12/29/17 06:28 Labs: Abnormal Lab Results - Last 24 Hours (Table) 12/28/17 12/28/17 12/29/17 Range/Units 16:15 20:46 02:04 WBC (3.8-10.6) k/uL RBC (3.80-5.40) m/uL Hgb (11.4-16.0) gm/dL Hct (34.0-46.0) % MCHC (31.0-37.0) g/dL Plt Count (150-450) k/uL Neutrophils # (1.3-7.7) k/uL Sodium (137-145) mmol/L BUN (7-17) mg/dL POC Glucose (mg/dL) 119 H 130 H 116 H (75-99) mg/dL Alkaline Phosphatase (38-126) U/L Total Protein (6.3-8.2) g/dL Albumin (3.5-5.0) g/dL 12/29/17 12/29/17 12/29/17 Range/Units 06:04 06:28 06:28 WBC 20.1 H (3.8-10.6) k/uL RBC 2.83 L (3.80-5.40) m/uL Hgb 7.5 L (11.4-16.0) gm/dL Hct 24.8 L (34.0-46.0) % MCHC 30.2 L (31.0-37.0) g/dL Plt Count 638 H (150-450) k/uL Neutrophils # 17.3 H (1.3-7.7) k/uL Sodium 133 L (137-145) mmol/L BUN 19 H (7-17) mg/dL POC Glucose (mg/dL) 109 H (75-99) mg/dL Alkaline Phosphatase 345 H (38-126) U/L Total Protein 4.6 L (6.3-8.2) g/dL Albumin 1.9 L (3.5-5.0) g/dL 12/29/17 Range/Units 11:28 WBC (3.8-10.6) k/uL RBC (3.80-5.40) m/uL Hgb (11.4-16.0) gm/dL Hct (34.0-46.0) % MCHC (31.0-37.0) g/dL Plt Count (150-450) k/uL Neutrophils # (1.3-7.7) k/uL Sodium (137-145) mmol/L BUN (7-17) mg/dL POC Glucose (mg/dL) 107 H (75-99) mg/dL Alkaline Phosphatase (38-126) U/L Total Protein (6.3-8.2) g/dL Albumin (3.5-5.0) g/dL Assessment and Plan Assessment: Impression: #1. Multivessel coronary artery disease, involving left main coronary artery. Status post coronary artery bypass grafting. Postoperative day #18. #2. Acute sepsis secondary to an acute perforated viscus with necrosis of the transverse and right colon and the patient is status post right colectomy, transverse colectomy and takedown of splenic flexure with ileostomy. Postoperative day #9 #3. Acute hypoxic respiratory failure secondary to above, recovered. There is no clear evidence of ARDS. #4. Diabetes mellitus 2 #5. Obesity #6. Peripheral vascular disease #7. History of nicotine dependence, currently in remission, quit 10 years ago, carries [id number] smoking history #8. Hypothyroidism #9. Paroxysmal atrial fibrillation, currently in sinus rhythm #10. Chronic low back pain #11. Depression #12. Urinary tract infection secondary to E. coli, follow-up culture negative #13. Hypertension. Plan: The patient was seen and evaluated by Dr. Chavez. Chest x-ray and labs were reviewed. She continues to improve clinically and radiographically. 18 in good O2 saturations in the upper 90s on room air. Working well with the incentive spirometer. Continue her current treatment plan. We will increase her activity as tolerated. We will continue to follow and make further recommendations based on her clinical status. I, the cosigning physician, performed a history & physical examination of the patient. Lungs sounds with crackles in the bases. Maintaining good O2 saturations in the 90s on room air. I discussed the assessment and plan of care with my nurse practitioner, Anne Marie Javed. I attest to the above note as dictated by her.
[2017-12-29 17:08] LABS: Glucose,Whole Blood 105 mg/dL (75-99)
[2017-12-29 21:19] LABS: Glucose,Whole Blood 115 mg/dL (75-99)
--- NOTE | 2017-12-29 22:21 | P.PN ---
Progress Note - Text Progress Note Date: 12/29/17 Date of service-12/29/2017 Presenting complaint: Tired Interval history: Patient status post CABG followed by ischemic bowel and bowel perforation resulting in ostomy and a wound VAC. Patient been tolerating a diet. Colostomy is functioning. Did talk about 6 test. Breathing is continues to improve. No fever. Review of systems: Was done for constitutional, cardiovascular, GI, pulmonary. relevant finding as above Current medications are reviewed and include antifungal, IV Lasix 20 mg every 12 , IV meropenem On examination: VITAL SIGNS: 97.3, 77, 15, 166-72, 97% on room air GENERAL APPEARANCE: Sitting up in a chair, awake. HEENT: Normal external appearance of nose and ear. Oral cavity normal EYES: Pupils equal. Conjunctiva pale NECK: JVD unable to assess. Mass not palpable. RESPIRATORY: Respiratory effort increased, lungs diffuse breath sounds. CARDIOVASCULAR: First and second sounds normal. Mild edema. ABDOMEN: Soft. Liver and spleen not palpable. Mild tenderness. Colostomy bag with dark stool, wound VAC in place. PSYCHIATRY: Alert and oriented x3. Mood and affect normal. Investigations: White count 20.1, hemoglobin 7.5, platelets 638, potassium 3.8, creatinine 0.71 Chest x-ray-small pleural effusion, atelectasis Assessment: -Coronary artery disease, status post bypass on 12/12/2079 -Acute ischemic bowel with perforation with right transverse colectomy and takedown of the splenic flexure with resultant colostomy -Wound VAC -Acute hypoxic respiratory failure status post ventilator support -Hypertensive and septic shock not a covered -Possible atrial fibrillation patient's sinus rhythm -Peripheral artery disease -Hypothyroid -Tablet is mellitus type II -Chronic low back pain from arthritis -Depression otherwise specified -Obesity BMI 34.3 -Acute blood loss anemia as expected from surgery and hospital acquired from blood draws -Hyperlipidemia -Hypoalbuminemia and anemia as an acute phase reactant -Bilateral pleural effusion being managed medically not for thoracentesis -Essential hypertension Plan: Continue current medication treatment plan. Patient on small dose of IV Lasix. Patient on antifungals and IV meropenem. PT OT is working with the patient. Care was discussed the patient.
[2017-12-30 02:11] LABS: Glucose,Whole Blood 99 mg/dL (75-99)
[2017-12-30] MEDS: INSULIN ASPART 100 UNIT/ML 1 ML 10 ML VIAL SQ SCH ×5 (02:25→20:50)
[2017-12-30 06:16] LABS: Basophils # (A) 0.1 k/uL (0-0.2); Basophils % (A) 1 %; Eosinophils # (A) 0.3 k/uL (0-0.7); Eosinophils % (A) 2 %; HCT 23.6 % (34.0-46.0); HGB 7.3 gm/dL (11.4-16.0); Hypochromasia Moderate; Lymphocytes # (A) 1.1 k/uL (1.0-4.8); Lymphocytes % (A) 6 %; MCH 27.2 pg (25.0-35.0); MCHC 31.1 g/dL (31.0-37.0); MCV 87.5 fL (80.0-100.0); Mean Platelet Volume 6.8; Monocytes % (A) 5 %; Neutrophils # (A) 17.8 k/uL (1.3-7.7); Neutrophils % (A) 86 %; Platelet Count 675 k/uL (150-450); RDW 15.4 % (11.5-15.5); WBC 20.7 k/uL (3.8-10.6)
[2017-12-30 06:21] LABS: Glucose,Whole Blood 103 mg/dL (75-99)
[2017-12-30] MEDS: ACETAMINOPHEN TAB 325 MG TAB PO PRN ×2 (06:29→10:22)
[2017-12-30] MEDS: LEVOTHYROXINE 75 MCG TAB PO SCH (06:29)
[2017-12-30 06:30] LABS: ALT 31 U/L (9-52); AST 22 U/L (14-36); Alkaline Phosphatase 324 U/L (38-126); Anion Gap 8 mmol/L; Blood Urea Nitrogen 17 mg/dL (7-17); Calcium 8.3 mg/dL (8.4-10.2); Carbon Dioxide 26 mmol/L (22-30); Chloride 100 mmol/L (98-107); Glucose 86 mg/dL (74-99); Magnesium 1.8 mg/dL (1.6-2.3); Potassium 3.7 mmol/L (3.5-5.1); Sodium 134 mmol/L (137-145); Total Bilirubin 0.5 mg/dL (0.2-1.3); Total Protein 4.7 g/dL (6.3-8.2)
[2017-12-30] MEDS: oxyCODONE ER 20 MG TAB.ER.12H PO SCH ×2 (07:35→16:40)
[2017-12-30] MEDS: DULoxetine HCL 60 MG CAPSULE.DR PO SCH (07:37)
[2017-12-30] MEDS: MAGNESIUM SULFATE-D5W PMX 1 GM in DEXTROSE/WATER 1 100ML.BAG IVPB SCH ×2 (07:37→12:42)
[2017-12-30] MEDS: METOPROLOL TARTRATE 25 MG TAB PO SCH ×2 (07:37→20:43)
[2017-12-30] MEDS: HEPARIN SODIUM,PORCINE 5,000 UNIT/ML 1 ML VIAL SQ SCH ×2 (07:37→15:31)
[2017-12-30] MEDS: IPRATROPIUM-ALBUTEROL 3 ML NEB INHALATION SCH ×4 (07:37→20:48)
[2017-12-30] MEDS: PANTOPRAZOLE 40 MG/10 ML VIAL IVP SCH (07:39)
[2017-12-30] MEDS: FUROSEMIDE 10 MG/ML 2 ML VIAL IV SCH ×2 (07:39→20:44)
[2017-12-30] MEDS: hydrALAZINE HCL 10 MG TAB PO SCH ×2 (07:39→20:43)
[2017-12-30] MEDS: CLOPIDOGREL 75 MG TAB PO SCH (07:40)
[2017-12-30] MEDS ORDERED: POTASSIUM CHLORIDE ER 20 MEQ TAB.ER PO SCH (08:00)
[2017-12-30 08:57] LABS: Appearance,Urine Clear (Clear); Bilirubin,Urine Negative (Negative); Blood,Urine Negative (Negative); Color,Urine Light Yellow; Glucose,Urine (UA) Negative (Negative); Hyaline Casts,Urine 1 /lpf (0-2); Ketones,Urine Negative (Negative); Leukocyte Esterase,Urine Trace (Negative); Nitrite,Urine Negative (Negative); PH, Urine 6.5 (5.0-8.0); Protein,Urine Trace (Negative); RBC,Urine 1 /hpf (0-5); Specific Gravity,Urine 1.008 (1.001-1.035); Squamous Epithelial Cell,Urine <1 /hpf (0-4); Urobilinogen,Urine <2.0 mg/dL (<2.0)
[2017-12-30] MEDS: MEROPENEM 2 GM in SODIUM CHLORIDE 0.9% 100 ML IVPB SCH ×2 (08:59→20:48)
[2017-12-30] MEDS: AMIODARONE 200 MG TAB PO SCH (09:02)
[2017-12-30] MEDS: ASPIRIN 81 MG PO SCH (09:02)
[2017-12-30] MEDS: ATORVASTATIN 40 MG TAB PO SCH (09:02)
--- NOTE | 2017-12-30 10:11 | P.PN ---
Subjective Progress Note Date: 12/30/17 Principal diagnosis: Coronary artery disease with critical left main disease. Preserved left ventricular function. Previous medical history of hypertension, hyperlipidemia , diabetes mellitus with preoperative hemoglobin A1c 8.1%, hypothyroid, chest granulomatous disease, peripheral vascular disease status post right fem-pop bypass, previous tobacco dependence with preoperative FEV1 109% of predicted in November 2016, recent fall in June 2017 with torn right rotator cuff, questionable DVT with previous Coumadin use greater than 2 years ago, syncopal episodes, history of paroxysmal atrial fibrillation, chronic low back pain, obesity, depression and preoperative E. coli urinary tract infection. POD #19 urgent quadruple coronary artery bypass grafting using the left internal mammary artery sequentially to the diagonal coronary artery and to the left anterior descending coronary artery, a reverse greater saphenous vein graft from the aorta to the first obtuse marginal coronary artery, a reverse greater saphenous vein graft from the aorta to the third obtuse marginal coronary artery. Bilateral pulmonary vein isolation using the AtriCure radiofrequency clamp. Exclusion of the left atrial appendage using a 35 mm AtriClip. Intraoperative transesophageal echocardiogram and epi-aortic scanning. POD #9 right colectomy, transverse colectomy, takedown splenic flexure, ileostomy performed by Dr. Montoya Postoperative elevation in transaminases, an unexpected outcome, resolving. Leukocytosis, present preoperatively. Postoperative diarrhea, an unexpected outcome. Postoperative normochromic, normocytic anemia, an expected outcome of surgery secondary to cardiopulmonary bypass and hemodilution. Postoperative urinary retention, an unexpected outcome. Postoperative pneumoperitoneum, an unexpected outcome. Necrosis of the transverse colon, right colon and unexpected outcome. Sepsis, septic shock, an unexpected outcome. Postoperative prolonged mechanical ventilation, needed to be reintubated for second surgery, an unexpected outcome. Postoperative left-sided pleural effusion, an unexpected outcome of surgery. Resolving. The patient is currently sitting up to the bedside chair. She is in no acute distress. Denies any complaints of pain or shortness of breath at this time. She is alert and oriented 3. Wound VAC remains in place. Her ileostomy is intact with stool present. She is tolerating oral intake without complaints of any nausea. She reports that she ambulated in her room to the doorway 2-3 times yesterday. Her goal today is to walk out into the [facility] hallway 3 times. Objective - Vital Signs Vital signs: Vital Signs Temp 97.3 F L 12/30/17 07:52 Pulse 76 12/30/17 07:52 Resp 18 12/30/17 07:52 BP 135/83 12/30/17 07:52 Pulse Ox 93 L 12/30/17 07:52 Intake & Output 12/29/17 12/30/17 12/30/17 18:59 06:59 18:59 Intake Total 390 10 437 Output Total 1900 11 450 Balance -1510 - - Weight 95.5 kg 92.6 kg Intake: IV 10 Invasive Line 1 10 Oral 390 437 Output: Urine 700 1 450 Uretheral (Almaguer) 600 Post Void Residual 0 Stool 1200 10 Other: Voiding Method Diaper Incontinent # Voids 1 ABP, PAP, CO, CI - Last Documented Arterial Blood Pressure 159/93 Pulmonary Artery Pressure 4/4 Cardiac Output 4.5 Cardiac Index 2.5 - Constitutional General appearance: Present: cooperative, no acute distress, obese - Respiratory Details: Lungs sounds essentially clear throughout, diminished her bilateral bases left greater than right. Respirations are symmetrical and nonlabored. Oxygen saturation are 94% on room air. She is achieving 1000 mL on her incentive spirometry with encouragement. - Cardiovascular Details: Regular rhythm and rate. S1 and S2 present, negative for S3, gallop or murmur. Sternum is stable. Remote telemetry showing normal sinus rhythm heart rate 82. Heart hugger is in place and she is demonstrating appropriate use. Right upper basilic vein midline catheter present and functioning. Knee-high KURT hose and sequential compression devices in place to bilateral lower extremities. - Gastrointestinal Gastrointestinal Comment(s): Abdomen is soft, nontender and nondistended. Active bowel sounds to all 4 abdominal quadrants. Right lower quadrant abdominal ileostomy present with dark brown soft stool. Tolerating oral intake. - Genitourinary Genitourinary Comment(s): Patient voiding to bedside commode. Episodes of incontinence throughout the night. - Integumentary Integumentary Comment(s): Skin is warm and dry. No clubbing or cyanosis present. Midline sternal incision clean dry and approximated. No drainage or redness present. Left leg EVH sites clean dry and approximated. No drainage or redness present. Midline abdominal incision with andrei intact to mid incision and wound VAC in place. - Neurologic Neurologic: Present: CNII-XII intact - Musculoskeletal Musculoskeletal: Present: gait normal, generalized weakness, strength equal bilaterally - Psychiatric Psychiatric: Present: A&O x's 3, appropriate affect, intact judgment & insight - Allied health notes Allied health notes reviewed: nursing - Labs CBC & Chem 7: 12/30/17 05:40 12/30/17 05:40 Labs: Abnormal Lab Results - Last 24 Hours (Table) 12/29/17 12/29/17 12/29/17 Range/Units 11:28 16:34 21:17 WBC (3.8-10.6) k/uL RBC (3.80-5.40) m/uL Hgb (11.4-16.0) gm/dL Hct (34.0-46.0) % Plt Count (150-450) k/uL Neutrophils # (1.3-7.7) k/uL Sodium (137-145) mmol/L POC Glucose (mg/dL) 107 H 105 H 115 H (75-99) mg/dL Calcium (8.4-10.2) mg/dL Alkaline Phosphatase (38-126) U/L Total Protein (6.3-8.2) g/dL Albumin (3.5-5.0) g/dL Urine Protein (Negative) Ur Leukocyte Esterase (Negative) 12/30/17 12/30/17 12/30/17 Range/Units 05:40 05:40 06:20 WBC 20.7 H (3.8-10.6) k/uL RBC 2.70 L (3.80-5.40) m/uL Hgb 7.3 L (11.4-16.0) gm/dL Hct 23.6 L (34.0-46.0) % Plt Count 675 H (150-450) k/uL Neutrophils # 17.8 H (1.3-7.7) k/uL Sodium 134 L (137-145) mmol/L POC Glucose (mg/dL) 103 H (75-99) mg/dL Calcium 8.3 L (8.4-10.2) mg/dL Alkaline Phosphatase 324 H (38-126) U/L Total Protein 4.7 L (6.3-8.2) g/dL Albumin 2.0 L (3.5-5.0) g/dL Urine Protein (Negative) Ur Leukocyte Esterase (Negative) 12/30/17 Range/Units 08:30 WBC (3.8-10.6) k/uL RBC (3.80-5.40) m/uL Hgb (11.4-16.0) gm/dL Hct (34.0-46.0) % Plt Count (150-450) k/uL Neutrophils # (1.3-7.7) k/uL Sodium (137-145) mmol/L POC Glucose (mg/dL) (75-99) mg/dL Calcium (8.4-10.2) mg/dL Alkaline Phosphatase (38-126) U/L Total Protein (6.3-8.2) g/dL Albumin (3.5-5.0) g/dL Urine Protein Trace H (Negative) Ur Leukocyte Esterase Trace H (Negative) - Imaging and Cardiology Chest x-ray: report reviewed, image reviewed Assessment and Plan (1) Diarrhea in adult patient Current Visit: Yes Status: Acute Code(s): R19.7 - DIARRHEA, UNSPECIFIED SNOMED Code(s): 61631408 (2) Chronic low back pain Current Visit: Yes Status: Chronic Code(s): M54.5 - LOW BACK PAIN; G89.29 - OTHER CHRONIC PAIN SNOMED Code(s): 402390220 (3) Coronary artery disease involving left main coronary artery Current Visit: Yes Status: Chronic Code(s): I25.10 - ATHSCL HEART DISEASE OF [place] CORONARY ARTERY W/O ANG PCTRS SNOMED Code(s): 473539659 (4) Diabetes Current Visit: Yes Status: Chronic Code(s): E11.9 - TYPE 2 DIABETES MELLITUS WITHOUT COMPLICATIONS SNOMED Code(s): 13931779 (5) Family history of heart disease Current Visit: Yes Status: Chronic Code(s): Z82.49 - FAMILY HX OF ISCHEM HEART DIS AND OTH DIS OF THE CIRC SYS SNOMED Code(s): 851555811 (6) Hyperlipidemia Current Visit: Yes Status: Chronic Code(s): E78.5 - HYPERLIPIDEMIA, UNSPECIFIED SNOMED Code(s): 44607317 (7) Hypertension Current Visit: Yes Status: Chronic Code(s): I10 - ESSENTIAL (PRIMARY) HYPERTENSION SNOMED Code(s): 10565713 (8) Hypothyroid Current Visit: Yes Status: Chronic Code(s): E03.9 - HYPOTHYROIDISM, UNSPECIFIED SNOMED Code(s): 69246859 (9) Peripheral vascular disease Current Visit: Yes Status: Chronic Code(s): I73.9 - PERIPHERAL VASCULAR DISEASE, UNSPECIFIED SNOMED Code(s): 461852592 (10) History of DVT (deep vein thrombosis) Current Visit: No Status: Resolved Code(s): Z86.718 - PERSONAL HISTORY OF OTHER VENOUS THROMBOSIS AND EMBOLISM SNOMED Code(s): 052065162 (11) History of atrial fibrillation Current Visit: No Status: Resolved Code(s): Z86.79 - PERSONAL HISTORY OF OTHER DISEASES OF THE CIRCULATORY SYSTEM SNOMED Code(s): 245147400 (12) Tobacco dependence in remission Current Visit: No Status: Resolved Code(s): F17.201 - NICOTINE DEPENDENCE, UNSPECIFIED, IN REMISSION SNOMED Code(s): 326695650 (13) Intestinal necrosis Current Visit: Yes Status: Acute Code(s): K55.069 - ACUTE INFARCTION OF INTESTINE, PART AND EXTENT UNSPECIFIED SNOMED Code(s): 65110761 (14) Ileostomy in place Current Visit: Yes Status: Acute Code(s): Z93.2 - ILEOSTOMY STATUS SNOMED Code(s): 644159096 (15) Ileostomy care Current Visit: Yes Status: Acute Code(s): Z43.2 - ENCOUNTER FOR ATTENTION TO ILEOSTOMY SNOMED Code(s): 035050486 (16) Ischemic colitis Current Visit: Yes Status: Acute Code(s): K55.9 - VASCULAR DISORDER OF INTESTINE, UNSPECIFIED SNOMED Code(s): 42902610 Plan: 1. Continue low dose aspirin, statin, plavix and beta sheree. Will increase her beta sheree as tolerated. 2. Wean oxygen as tolerated to maintain her oxygen saturations greater than 92% . 3. Continue meropenem and a right Eraxis managed by Dr. Mccartney from infectious disease. 4. Continue amiodarone for A. fib prophylaxis. Currently on amiodarone 200 mg by mouth daily. 5. Continue Lasix 20 mg IV twice a day. 6. Monitor daily labs, chest x-rays. 7. GI/DVT prophylaxis. 8. Pain control with current medication regimen. 9. Bronchodilators management per pulmonology. 10. Insulin/diabetic management per primary care service. 11. Wound VAC management per general surgery recommendations to her abdominal incisions. VAC dressing and ileostomy dressing change today. Abdominal wound sites are clean with granulating tissue. 12. Continue bladder scans after each void or every 6 hours. If greater than 300 mL residual please straight cath. 13. Increase activity as tolerated, physical therapy/occupational therapy and cardiac rehab following. 14. Send urinalysis for WBC count of 20.7. 15. Patient may benefit from long-term acute care when discharged due to her wound VAC dressing and need for further rehabilitation. 16. More recommendations to follow based on patient's clinical course. Time with Patient: Greater than 30
[2017-12-30] MEDS: ANIDULAFUNGIN 100 MG in SODIUM CHLORIDE 0.9% 100 ML IVPB SCH (10:21)
--- NOTE | 2017-12-30 10:25 | XR ---
EXAMINATION TYPE: XR chest 2V DATE OF EXAM: 12/30/2017 COMPARISON: 12/29/2017 HISTORY: 72 year-old female post cardiac surgery TECHNIQUE: Frontal and lateral views FINDINGS: Heart remains upper limits of normal in size. Increasing obscuration of the left heart margin. Increa sing, now moderate left pleural effusion. Improving right pleural effusion. Mild diffuse interstitial prominence. Calcified subcarinal lymph node. IMPRESSION: Slight increased, now moderate left pleural effusion with adjacent atelectasis and or consolidation. Improvement of patient's right effusion.
--- NOTE | 2017-12-30 11:06 | P.PN ---
Subjective Progress Note Date: 12/30/17 Principal diagnosis: Status post coronary artery bypass grafting, status post right colectomy for acute perforated viscus and necrosis of the transverse and right colon. Mrs. Sellers is a 72-year-old white female patient of Dr. Alcala who was undergoing cardiac evaluation for clearance for her upcoming right rotator cuff repair, was found to have inferoseptal ischemia on the nuclear stress test. Cardiac catheterization showed left main disease of 60-70%, extending into the proximal circumflex, mid LAD of 70%, and 70% ostial lesion of the left circumflex, and no significant right coronary artery disease. She was recommended surgical intervention for which she is scheduled on Monday, on 12/11. Past medical history is positive for diabetes mellitus type 2, hypertension, hyperlipidemia, hypothyroidism, peripheral vascular disease status post right fem-pop bypass, previous nicotine dependence, quit smoking 10 years ago, carries [id number] smoking history, DVT with previous Coumadin use , paroxysmal atrial fibrillation, chronic back pain, obesity and depression. Patient had a spirometry PFT in November 2016 which showed FEV1 of 109%. We are seeing this patient in consultation for pulmonary management for the upcoming coronary artery bypass grafting surgery. On today's evaluation of a 12/18/2017 Carolyn is back to the intensive care unit. She is postop day #7 following her coronary artery bypass surgery. She got transferred because of an extensive liquidy/watery diarrhea which left her into a dehydrated state and causes some non-anion gap metabolic acidosis. Her bicarb level is down to 14. She had 3 additional liquidy bowel movements this morning. The patient was seen by general surgery. CAT scan of the abdomen was done raising the possibility of an underlying ischemic colitis. She was placed on accommodation Zosyn and vancomycin. No fever or chills. She also had gone into atrial fibrillation. The rate is controlled right now with metoprolol and amiodarone and the patient is also on IV heparin. She is complaining of pain throughout her chest and body mainly in the joints and she has been taken hydrocodone outpatient basis. I restarted her on [place] 5 every 6 hours for pain control pH is using incentive spirometer. She is on IV fluids and she'll be started on a bicarb drip. The patient's chest x-ray from today showed small bilateral pleural effusion and basilar atelectasis and left lung base. There is also artifact from external objects on the chest x-ray. The postoperative echocardiogram showed a preserved LV function with an ejection fraction of 50-55 %. No valvular abnormalities noted. On today's evaluation of 12/19/2017, the patient is awake and alert and sitting up on a chair. The diarrhea has subsided significantly. She only had liquidy loose bowel movement there was small amount this morning. Otherwise, the patient is was resuscitated IV fluids. The patient received a bicarb infusion yesterday and her serum bicarb normalizes and earlier this morning associated to a normal saline infusion at the rate of 75 mL an hour. Her urine output is around 20-25 mL an hour. The patient's creatinine is normal. BUN is down to 7. Vascular electrodes are all within normal limits and her bicarb level is normalized. No nausea. No vomiting. No abdominal pain. She is taking clear liquid diet. No chest pain. Chest x-ray shows some mild pulmonary vascular congestion and atelectatic changes in lung bases bilaterally. She is on room air oxygen. Sternum stable clean and intact. She has E. coli in the urine and she is on IV Zosyn. Vancomycin was discontinued. IV heparin was discontinued. Her current rhythm is sinus. On 12/20/2017 the patient developed some vague abdominal pain. This pain started approximately 4 AM in the morning. As mentioned earlier the patient is postop from coronary artery bypass surgery and she is postop day #8. The patient is currently in the intensive care unit. X-ray of the chest was done this morning and it showed free air under the diaphragm. This is consistent with pneumoperitoneum and the patient will need further investigation. Immediately the general surgeon was contacted and the patient had a CAT scan of the abdomen and it showed moderate pneumoperitoneum with site of the perforation i not identified although there was suspicion that maybe the distal stomach/duodenal area. The patient currently on IV Zosyn. No cervical leukocytosis. Urine output is dropped down to 20 mL an hour. Her white count from this morning's at 14.3. Patient be taken to the operating room for an expected laparotomy. No altered mentation. No cough or sputum production. No other complaints otherwise for now. On 12/21/2017 I'm seeing this patient for a follow-up. She is a critically ill female patient was taken to the operating room yesterday for an acute bowel perforation. The patient was found to have pneumoperitoneum and the patient was taken to the operating room and the patient underwent expiratory laparotomy and right colectomy and transverse colectomy and takedown of splenic flexure and diverticular colostomy. The patient intraoperatively was found to have necrosis of the transverse colon and the right colon. Postop, the patient was kept intubated and the patient was moved to the intensive care unit for further evaluation and management. Overnight the patient was given fluid aggressively. She was given IV albumin. She was given lactated Ringer solution and normal saline solution. She did drop her pressure and she had also to placed on pressors and she is currently on 3-4 mics of norepinephrine infusion to maintain a mean artery pressure above 65. This morning I give her another liter of lactated Ringer and nontender albumin 5% to bring her CVP above 12. Hemoglobin dropped down to 6.7. Her white count came up to 31.4 and subsequently dropped down to 23. This is expected as the patient had a bowel necrosis and intra-abdominal sepsis. Antibiotic dressings were done and the patient was placed on Merrem and Eraxis. Earlier this morning the patient was on assist-control mode of ventilation and was obvious that the patient was asynchronous and double stacking on a mechanical ventilator. This was occurring even while on 40 mics of Diprivan infusion. Based on this, necessary vent changes were done. The patient was air hungry and she was taken significantly high tidal volumes. I was able to bring the tidal volume of 600 and the rate of 18 with a FiO2 of 40% and a PEEP of 5. Chest x-ray from today showed that the patient had adequate expansion of both lungs. There is a left- sided pleural effusion and ET tube is around 3-4 cm above the al. The net fluid balance over the past 24 hours is +6 L in the urine output is adequate for now. The patient is afebrile. On 12/22/2017 I'm seeing this patient for a follow-up. Note that the patient is postop day #2 following chest was colectomy, right colectomy and ileostomy and the patient is postop day #11 following her coronary artery bypass surgery. This morning the patient was sedated with Diprivan and she was calm and comfortable. Despite being on Diprivan, the patient was easily arousable. She was maintained on assist control mode of ventilation. Throughout the night the patient was an assist-control at the rate of 20 with a tidal volume of 600 and FiO2 of 40% and PEEP of 5. Chest x-ray showing the development of a left-sided pleural effusion. ET tube is in a good location. Rest of the lungs are all in good location is. NG tube is also in place. The blood gases from this morning showed a pH of 7.42 with a pCO2 of 26 and pO2 of 100. No significant orotracheal secretions. Hemodynamically, the patient was aggressively resuscitated IV fluids. She is in a positive fluid balance in order of 6 L at least and the patient was taken off pressors and she's been off the norepinephrine infusion for now. She is producing adequate amount of urine output. She does have a component of non-anion gap metabolic acidosis with a bicarb level of 16. Renal function stable with a creatinine of 0.9. Rest of the electrolytes are all within normal limits. Her white cell count peaked at 27.5 and currently is down to 25. She remains on a broad-spectrum antibiotics including IV Merrem and Ecaris. The cardiac rhythm remains sinus. CVP is somewhat between 10 and 13. Urine output is order of 30-40 mL an hour. Angiopathy was noted. There is also minimal amount of liquidy material within the ileostomy back. Surgical wound site is open and a superior and inferior portion and the wound VAC will be applied to that area. There is no active drainage at this point in time. Based on all this, I give the patient is sedation holiday. She woke up very nicely and she was able to follow commands and answers questions appropriately. Weaning parameters were checked and the patient had a tidal volume of 510 with a vital capacity of 780 within this of 27 and the rapid shallow breathing index of 34. She was given a CPAP trial and following that the patient was extubated to a nasal cannula pH is tolerated extubation without any major difficulties. At this point in time, the patient is extubated, she is following commands and answering questions appropriately. Family is at the bedside. On 12/23/2017, the patient remains extubated. She is postop day #3 following a right colectomy, transverse colectomy and ileostomy and she is postop day #12 following her coronary artery bypass surgery. I was able to wean the patient off the mechanical ventilator and she extubated very nicely without having any major difficulties and currently is on 2 L of oxygen by nasal cannula. Her chest x-ray continues to show a large left-sided pleural effusion. Earlier this morning he was given 40 mg of IV Lasix which improved her urine function and output and the patient is producing more than 50 mL of urine output on hourly basis. She is nothing by mouth. NG tube is in place. Her CVP remains somewhere between 11 and 18. She is producing up to 50 mL of urine output on hourly basis. Rule out able to apply wound VAC to her abdominal wall wound and the open incisions are well covered and she is producing approximately 600 mL of material from the wound VAC system was inserted yesterday. Sternum is stable clean and intact. She is weak and a bit lethargic, slightly worse compared to yesterday and this is probably attributed to her inability to fall asleep throughout the night. No active pain. She is weak. She denies having any specific complaints for now. TPN was started as the patient's pre-albumin and albumin and total protein is extremely low. Serum bicarb is gradually improving is up to 19. On 12/24/2017, the patient is awake and alert and she is postop day #4 from her bowel surgery and postop day #13 from her cardiac surgery. She is awake and alert and she is communicating. She is on 2 L about 2 by nasal cannula. No respiratory distress. She is diuresing and the chest x-ray shows improvement in the volume status and the patient was started on IV Lasix today. She was already producing approximately 40-50 mL an hour of urine output. NG tube is in place and output has been 100 mL over the past 24 hours. The patient has approximately 120cc of output and had ileostomy site. The wound VAC is also in place and the output has been not considerably high. She is doing well. Cardiac rhythm remains in normal sinus mechanism. The patient has TPN for nutritional support. Hemodynamically stable. No hypotension. No pressors requirements. No other significant events overnight. No altered mentation. On 12/25/2017, patient is postoperative day #5 from her bowel surgery, and postoperative day #14 from cardiac surgery. Patient is doing well, she is on 2 L nasal cannula, in no form of distress. Sitting at a bedside chair, asymptomatic. Chest x-ray is suggestive of a good sized left-sided pleural effusion, hence I recommended ultrasound of the chest to be done, may require left-sided thoracentesis. The ultrasound did show good sized left-sided pleural effusion, and I think I will recommend thoracentesis in the next 24 hours. All labs were reviewed including his CBC and renal profile. Clinically the patient is actually doing well. On 12/26/2017, patient is postoperative day #6 from her bowel surgery and postoperative day #15 from cardiac surgery. Remains on 2 L nasal cannula, in no distress, chest x-ray is showing improvement in her bilateral pleural effusions especially the left one. I was planning thoracentesis done the patient today, but considering the patient has excellent urine output, and the pleural effusion seems to be better, will cancel plans for left-sided thoracentesis today. Labs were reviewed, relatively normal electrolytes, and a relatively normal CBC except for hemoglobin of 7.8 which seems to be holding. Patient is asymptomatic, denies any shortness of breath no cough no wheezing no chest pain. No nausea no vomiting no abdominal pain. Her nasogastric tube was pulled out today. We'll start on clear liquids. Reevaluated today on 12/27/2017, patient is postoperative day #7. From her bowel surgery and postoperative day #16 from cardiac surgery. On 2 L nasal cannula, asymptomatic, chest x-ray is basically about the same, small left- sided pleural effusion is noted. Patient is asymptomatic. Labs were reviewed WBC count is 18.7 hemoglobin 8.3 basic metabolic profile is normal renal profile is normal. The patient is seen again today 12/28/2017 in follow-up on the selective care unit. She is now status post operative day #8 from bowel surgery and postoperative day #17 for coronary artery bypass graft surgery. She is currently awake and alert in no acute distress. She is resting quite comfortably in bed. She denies any worsening shortness of breath, cough or congestion. No chills or night sweats. She is working well with the incentive spirometer. White count 15.6. Hemoglobin 7.3. Creatinine 0.71. Ostomy is functional. She is tolerating her diet. The patient is seen again 12/29/2017 in follow-up on the selective care unit. She is currently sitting up in a chair at the bedside. She is doing better today as compared to yesterday. She denies any worsening shortness of breath, cough or congestion. Today's chest x-ray shows small to moderate left and small right pleural effusions with adjacent atelectasis with some improvement in the left. She continues to work well with the incentive spirometer. She is maintaining good O2 saturations in the upper 90s on room air. White count 20.1. Hemoglobin 7.5. Creatinine 0.71. The patient is seen again today 12/30/2017 in follow-up on the selective care unit. She is currently resting quite comfortable in bed. She denies any worsening shortness of breath, cough or congestion. She is working well with the incentive spirometer. Currently maintaining good O2 saturations in the 90s on room air. She's afebrile. White count 20.7. Hemoglobin 7.3. Creatinine 0.70. Today's chest x-ray reveals moderate left pleural effusion with adjacent atelectasis. There is some improvement in the right pleural effusion. Objective - Vital Signs Vital signs: Vital Signs Temp 97.3 F L 12/30/17 07:52 Pulse 76 12/30/17 09:00 Resp 18 12/30/17 07:52 BP 135/83 12/30/17 07:52 Pulse Ox 93 L 12/30/17 07:52 Intake & Output 12/29/17 12/30/17 12/30/17 18:59 06:59 18:59 Intake Total 390 10 437 Output Total 1900 11 450 Balance -1510 -1 -13 Weight 95.5 kg 92.6 kg Intake: IV 10 Invasive Line 1 10 Oral 390 437 Output: Urine 700 1 450 Uretheral ([place]) 600 Post Void Residual 0 Stool 1200 10 Other: Voiding Method Diaper Incontinent # Voids 1 ABP, PAP, CO, CI - Last Documented Arterial Blood Pressure 159/93 Pulmonary Artery Pressure 4/4 Cardiac Output 4.5 Cardiac Index 2.5 - Exam - Constitutional General appearance: Present: Awake, alert and oriented in no acute distress - Respiratory Details: Lungs sounds scattered rhonchi bilaterally, crackles in the posterior bases. Respirations even, nonlabored. Currently on 2 L/m with oxygen saturation 98%. Able to achieve 4258-7176 mL on her incentive spirometry. Effective cough. - Cardiovascular Details: S1, S2 present. Regular rate and rhythm, sinus rhythm on telemetry. Palpable peripheral pulses bilaterally. No edema present. No calf pain or tenderness noted. - Gastrointestinal Gastrointestinal Comment(s): Abdomen soft, nontender, nondistended. Active bowel sounds 4 quadrants. Tolerating diet. Ostomy functioning. Wound VAC in place. - Genitourinary Genitourinary Comment(s): Continues to void clear, yellow urine. - Integumentary Integumentary Comment(s): Skin is warm and dry with evidence of good perfusion. Left groin soft, nontender, no drainage. - Neurologic Neurologic: Present: CNII-XII intact - Musculoskeletal Musculoskeletal Comment(s): Walks with cane. Musculoskeletal: Present: Weak - Psychiatric Psychiatric: Present: A&O x's 2, - Labs CBC & Chem 7: 12/30/17 05:40 12/30/17 05:40 Labs: Abnormal Lab Results - Last 24 Hours (Table) 12/29/17 12/29/17 12/29/17 Range/Units 11:28 16:34 21:17 WBC (3.8-10.6) k/uL RBC (3.80-5.40) m/uL Hgb (11.4-16.0) gm/dL Hct (34.0-46.0) % Plt Count (150-450) k/uL Neutrophils # (1.3-7.7) k/uL Sodium (137-145) mmol/L POC Glucose (mg/dL) 107 H 105 H 115 H (75-99) mg/dL Calcium (8.4-10.2) mg/dL Alkaline Phosphatase (38-126) U/L Total Protein (6.3-8.2) g/dL Albumin (3.5-5.0) g/dL Urine Protein (Negative) Ur Leukocyte Esterase (Negative) 12/30/17 12/30/17 12/30/17 Range/Units 05:40 05:40 06:20 WBC 20.7 H (3.8-10.6) k/uL RBC 2.70 L (3.80-5.40) m/uL Hgb 7.3 L (11.4-16.0) gm/dL Hct 23.6 L (34.0-46.0) % Plt Count 675 H (150-450) k/uL Neutrophils # 17.8 H (1.3-7.7) k/uL Sodium 134 L (137-145) mmol/L POC Glucose (mg/dL) 103 H (75-99) mg/dL Calcium 8.3 L (8.4-10.2) mg/dL Alkaline Phosphatase 324 H (38-126) U/L Total Protein 4.7 L (6.3-8.2) g/dL Albumin 2.0 L (3.5-5.0) g/dL Urine Protein (Negative) Ur Leukocyte Esterase (Negative) 12/30/17 Range/Units 08:30 WBC (3.8-10.6) k/uL RBC (3.80-5.40) m/uL Hgb (11.4-16.0) gm/dL Hct (34.0-46.0) % Plt Count (150-450) k/uL Neutrophils # (1.3-7.7) k/uL Sodium (137-145) mmol/L POC Glucose (mg/dL) (75-99) mg/dL Calcium (8.4-10.2) mg/dL Alkaline Phosphatase (38-126) U/L Total Protein (6.3-8.2) g/dL Albumin (3.5-5.0) g/dL Urine Protein Trace H (Negative) Ur Leukocyte Esterase Trace H (Negative) Assessment and Plan Assessment: Impression: #1. Multivessel coronary artery disease, involving left main coronary artery. Status post coronary artery bypass grafting. Postoperative day #19. #2. Acute sepsis secondary to an acute perforated viscus with necrosis of the transverse and right colon and the patient is status post right colectomy, transverse colectomy and takedown of splenic flexure with ileostomy. Wound VAC in place Postoperative day #10 #3. Acute hypoxic respiratory failure secondary to above, recovered. There is no clear evidence of ARDS. #4. Diabetes mellitus 2 #5. Obesity #6. Peripheral vascular disease #7. History of nicotine dependence, currently in remission, quit 10 years ago, carries [id number] smoking history #8. Hypothyroidism #9. Paroxysmal atrial fibrillation, currently in sinus rhythm #10. Chronic low back pain #11. Depression #12. Urinary tract infection secondary to E. coli, follow-up culture negative #13. Hypertension. Plan: The patient was seen and evaluated by Dr. Scott. Chest x-ray and labs were reviewed. Working well with the incentive spirometer. Continue her current treatment plan. We will increase her activity as tolerated. We will continue to follow and make further recommendations based on her clinical status. I, the cosigning physician, performed a history & physical examination of the patient. Lungs sounds with crackles in the bases. Maintaining good O2 saturations in the 90s on room air. I discussed the assessment and plan of care with my nurse practitioner, Anne Marie Javed. I attest to the above note as dictated by her.
[2017-12-30 11:42] LABS: Glucose,Whole Blood 147 mg/dL (75-99)
[2017-12-30] MEDS ORDERED: IOPAMIDOL-300 CONTRAST 30 ML VIAL (ORAL USE) PO PRN ×2 (11:54→14:11)
--- NOTE | 2017-12-30 12:14 | P.PN ---
Subjective Progress Note Date: 12/30/17 The patient is a 72-year-old female status post exploratory laparotomy including colectomy with ostomy creation. She has done remarkable recovery despite her postoperative course. Her family is at bedside. Patient was scheduled to go to rehab until her white blood cell count started to elevate. She reports moderate weakness including difficulty with moving around from her shoulder pain that is pre-existing to her hospitalization. Separately, she denies any current abdominal pain. No reports of fevers or chills. Patient with blood cell count started to elevate the last 2-3 days. Objective - Vital Signs Vital signs: Vital Signs Temp 97.3 F L 12/30/17 07:52 Pulse 80 12/30/17 11:20 Resp 18 12/30/17 07:52 BP 135/83 12/30/17 07:52 Pulse Ox 93 L 12/30/17 07:52 Intake & Output 12/29/17 12/30/17 12/30/17 18:59 06:59 18:59 Intake Total 390 10 437 Output Total 1900 11 450 Balance -1510 -1 -13 Weight 95.5 kg 92.6 kg Intake: IV 10 Invasive Line 1 10 Oral 390 437 Output: Urine 700 1 450 Uretheral (Almaguer) 600 Post Void Residual 0 Stool 1200 10 Other: Voiding Method Diaper Incontinent # Voids 1 ABP, PAP, CO, CI - Last Documented Arterial Blood Pressure 159/93 Pulmonary Artery Pressure 4/4 Cardiac Output 4.5 Cardiac Index 2.5 - Exam GENERAL: Well developed and in no acute distress. HEENT: No sclera icterus. Extraocular movements grossly intact. Moist buccal mucosa. Head is atraumatic, normocephalic. Hears conversational speech. No nasal drainage. NECK: Supple without lymphadenopathy. CHEST: Non-labored respirations and equal bilateral excursions. CARDIOVASCULAR: Regular rate. Regular rhythm. Palpable 2+ radial pulses. Cardiac brace present. ABDOMEN: Soft, nontender. Nondistended. Ostomy pink pain and functioning MUSCULOSKELETAL: Clubbing cyanosis or edema NEUROLOGIC: No focal or lateralizing signs. Cranial nerves II-12 grossly intact PSYCH: Appropriate affect. Alert and oriented to person, place and time. SKIN: Good skin turgor. Well perfused. Ecchymoses bilateral upper arms pre- existing. - Labs CBC & Chem 7: 12/30/17 05:40 12/30/17 05:40 Labs: Abnormal Lab Results - Last 24 Hours (Table) 12/29/17 12/29/17 12/30/17 Range/Units 16:34 21:17 05:40 WBC 20.7 H (3.8-10.6) k/uL RBC 2.70 L (3.80-5.40) m/uL Hgb 7.3 L (11.4-16.0) gm/dL Hct 23.6 L (34.0-46.0) % Plt Count 675 H (150-450) k/uL Neutrophils # 17.8 H (1.3-7.7) k/uL Sodium (137-145) mmol/L POC Glucose (mg/dL) 105 H 115 H (75-99) mg/dL Calcium (8.4-10.2) mg/dL Alkaline Phosphatase (38-126) U/L Total Protein (6.3-8.2) g/dL Albumin (3.5-5.0) g/dL Urine Protein (Negative) Ur Leukocyte Esterase (Negative) 12/30/17 12/30/17 12/30/17 Range/Units 05:40 06:20 08:30 WBC (3.8-10.6) k/uL RBC (3.80-5.40) m/uL Hgb (11.4-16.0) gm/dL Hct (34.0-46.0) % Plt Count (150-450) k/uL Neutrophils # (1.3-7.7) k/uL Sodium 134 L (137-145) mmol/L POC Glucose (mg/dL) 103 H (75-99) mg/dL Calcium 8.3 L (8.4-10.2) mg/dL Alkaline Phosphatase 324 H (38-126) U/L Total Protein 4.7 L (6.3-8.2) g/dL Albumin 2.0 L (3.5-5.0) g/dL Urine Protein Trace H (Negative) Ur Leukocyte Esterase Trace H (Negative) 12/30/17 Range/Units 11:32 WBC (3.8-10.6) k/uL RBC (3.80-5.40) m/uL Hgb (11.4-16.0) gm/dL Hct (34.0-46.0) % Plt Count (150-450) k/uL Neutrophils # (1.3-7.7) k/uL Sodium (137-145) mmol/L POC Glucose (mg/dL) 147 H (75-99) mg/dL Calcium (8.4-10.2) mg/dL Alkaline Phosphatase (38-126) U/L Total Protein (6.3-8.2) g/dL Albumin (3.5-5.0) g/dL Urine Protein (Negative) Ur Leukocyte Esterase (Negative) Assessment and Plan (1) Ileostomy in place Current Visit: Yes Status: Acute Code(s): Z93.2 - ILEOSTOMY STATUS SNOMED Code(s): 941842201 (2) Intestinal necrosis Current Visit: Yes Status: Acute Code(s): K55.069 - ACUTE INFARCTION OF INTESTINE, PART AND EXTENT UNSPECIFIED SNOMED Code(s): 14221650 (3) Leukocytosis Current Visit: Yes Status: Acute Code(s): D72.829 - ELEVATED WHITE BLOOD CELL COUNT, UNSPECIFIED SNOMED Code(s): 755198510 (4) Coronary artery disease involving left main coronary artery Current Visit: Yes Status: Chronic Code(s): I25.10 - ATHSCL HEART DISEASE OF [place] CORONARY ARTERY W/O ANG PCTRS SNOMED Code(s): 765248274 Plan: 1. She is tolerating diet and he denies any active abdominal pain. 2. Recommend reevaluation from infectious disease team for antibiotic management.
--- NOTE | 2017-12-30 12:36 | P.PN ---
Progress Note - Text Progress Note Date: 12/30/17 Reviewed the chart for documentation clarification, did not feel the patient had ARDS at any point in time during this admission. No evidence of ARDS.
--- NOTE | 2017-12-30 13:35 | P.PN ---
Subjective Progress Note Date: 12/30/17 This is a pleasant 72-year-old female who lives status post coronary artery bypass grafting, and status post right colectomy for acute perforated viscus and necrosis of the transverse and right colon. She was seen and examined today on the telemetry unit. She is postoperative day 8 from bowel surgery and postoperative day 17 from her bypass surgery. Patient was sitting up in the chair at the time of her examination today. States that her abdominal discomfort today is much improved. Doing well on her incentive spirometry. Ostomy is functional. Blood pressure 140/80 heart rate in the 80s , 98% on 2 L of oxygen. White blood cell count 15.6, hemoglobin 7.3, platelet count 521. Sodium 133, potassium 4.2, BUN 22, creatinine 0.7. 12/29/2017 Patient seen and examined this morning, sitting up in the chair at bedside, no acute distress. Does have some mild abdominal discomfort this morning. Wound VAC remains in place, ileostomy is functioning. Blood pressure 148/70 with a heart rate in the 70s. White blood cell count 20.1, hemoglobin 7.5, platelet count 638. Sodium 133, potassium 3.8, BUN 19, creatinine 0.7. 12/30/2017 was seen and examined this morning, complaining of mild abdominal discomfort, after dressing change became quite a bit worse. For this reason a repeat CAT scan of the abdomen and ordered for today. Hemodynamically she stable and continues to be in a normal sinus rhythm. Sodium 134, potassium 3.7 , BUN 17, creatinine 0.7 today. White blood cell count 20.7 with a hemoglobin of 7.3. Objective - Vital Signs Vital signs: Vital Signs Temp 97.3 F L 12/30/17 07:52 Pulse 80 12/30/17 11:20 Resp 18 12/30/17 07:52 BP 135/83 12/30/17 07:52 Pulse Ox 93 L 12/30/17 07:52 Intake & Output 12/29/17 12/30/17 12/30/17 18:59 06:59 18:59 Intake Total 390 10 437 Output Total 1900 11 450 Balance -1510 -1 -13 Weight 95.5 kg 92.6 kg Intake: IV 10 Invasive Line 1 10 Oral 390 437 Output: Urine 700 1 450 Uretheral (Almaguer) 600 Post Void Residual 0 Stool 1200 10 Other: Voiding Method Diaper Incontinent # Voids 1 ABP, PAP, CO, CI - Last Documented Arterial Blood Pressure 159/93 Pulmonary Artery Pressure 4/4 Cardiac Output 4.5 Cardiac Index 2.5 - Exam PHYSICAL EXAMINATION: GENERAL: 72-year-old female in no acute distress at the time of my examination HEENT: Head is atraumatic, normocephalic. Pupils equal, round. Sclera anicteric. Conjunctiva are clear. Mucous membranes of the mouth are moist. Neck is supple. There is no elevated jugular venous pressure.] bruit is heard. HEART EXAMINATION: Heart S1, S2 normal. No murmur or gallop heard. CHEST EXAMINATION: Lungs reveal fine crackles to bilateral bases. ABDOMEN: Soft, generalized tenderness today. Bowel sounds are heard. No organomegaly noted. EXTREMITIES: 2+ peripheral pulses with no evidence of peripheral edema and no calf tenderness noted. NEUROLOGIC patient is awake, alert and oriented ?-3. . - Labs CBC & Chem 7: 12/30/17 05:40 12/30/17 05:40 Labs: Abnormal Lab Results - Last 24 Hours (Table) 12/29/17 12/29/17 12/30/17 Range/Units 16:34 21:17 05:40 WBC 20.7 H (3.8-10.6) k/uL RBC 2.70 L (3.80-5.40) m/uL Hgb 7.3 L (11.4-16.0) gm/dL Hct 23.6 L (34.0-46.0) % Plt Count 675 H (150-450) k/uL Neutrophils # 17.8 H (1.3-7.7) k/uL Sodium (137-145) mmol/L POC Glucose (mg/dL) 105 H 115 H (75-99) mg/dL Calcium (8.4-10.2) mg/dL Alkaline Phosphatase (38-126) U/L Total Protein (6.3-8.2) g/dL Albumin (3.5-5.0) g/dL Urine Protein (Negative) Ur Leukocyte Esterase (Negative) 12/30/17 12/30/17 12/30/17 Range/Units 05:40 06:20 08:30 WBC (3.8-10.6) k/uL RBC (3.80-5.40) m/uL Hgb (11.4-16.0) gm/dL Hct (34.0-46.0) % Plt Count (150-450) k/uL Neutrophils # (1.3-7.7) k/uL Sodium 134 L (137-145) mmol/L POC Glucose (mg/dL) 103 H (75-99) mg/dL Calcium 8.3 L (8.4-10.2) mg/dL Alkaline Phosphatase 324 H (38-126) U/L Total Protein 4.7 L (6.3-8.2) g/dL Albumin 2.0 L (3.5-5.0) g/dL Urine Protein Trace H (Negative) Ur Leukocyte Esterase Trace H (Negative) 12/30/17 Range/Units 11:32 WBC (3.8-10.6) k/uL RBC (3.80-5.40) m/uL Hgb (11.4-16.0) gm/dL Hct (34.0-46.0) % Plt Count (150-450) k/uL Neutrophils # (1.3-7.7) k/uL Sodium (137-145) mmol/L POC Glucose (mg/dL) 147 H (75-99) mg/dL Calcium (8.4-10.2) mg/dL Alkaline Phosphatase (38-126) U/L Total Protein (6.3-8.2) g/dL Albumin (3.5-5.0) g/dL Urine Protein (Negative) Ur Leukocyte Esterase (Negative) Assessment and Plan Plan: Assessment and plan #1. Multivessel coronary artery disease, involving left main coronary artery. Status post coronary artery bypass grafting. #2. Acute sepsis secondary to an acute perforated viscus with necrosis of the transverse and right colon and the patient is status post right colectomy, transverse colectomy and takedown of splenic flexure with ileostomy. Postoperative day #8 #3. Acute hypoxic respiratory failure secondary to above, recovered. #4. Diabetes mellitus 2 #5. Obesity #6. Peripheral vascular disease #7. History of nicotine dependence, currently in remission, quit 10 years ago, carries [id number] smoking history #8. Hypothyroidism #9. Paroxysmal atrial fibrillation, currently in sinus rhythm #10. Chronic low back pain #11. Depression #12. Urinary tract infection secondary to E. coli, follow-up culture negative #13. Hypertension. Plan From cardiology's perspective, we'll recommend to continue the patient on her current medications. She is doing quite well overall. We will continue to follow. DNP note has been reviewed, I agree with a documented findings and plan of care. Patient was seen and examined.
--- NOTE | 2017-12-30 16:10 | P.PN ---
Progress Note - Text Progress Note Date: 12/30/17 Presenting complaint: Tired Interval history: Patient status post CABG followed by ischemic bowel and bowel perforation resulting in ileostomy and a wound VAC. Today-patient's lunch was held off. Computed tomography scan of the abdomen has been ordered. Patient walked about 2 or 3 steps today breathing is stable. Review of systems: Was done for constitutional, cardiovascular, GI, pulmonary. relevant finding as above Current medications are reviewed and include antifungal, IV Lasix 20 mg every 12 , IV meropenem On examination: VITAL SIGNS: 98.1, 71, 16, 133/70, 94% room air GENERAL APPEARANCE: Laying in bed comfortable. HEENT: Normal external appearance of nose and ear. Oral cavity normal EYES: Pupils equal. Conjunctiva pale NECK: JVD unable to assess. Mass not palpable. RESPIRATORY: Respiratory effort increased, lungs diffuse breath sounds. CARDIOVASCULAR: First and second sounds normal. Mild edema. ABDOMEN: Soft. Liver and spleen not palpable. Mild tenderness. Ileostomy bag empty, wound VAC in place. PSYCHIATRY: Alert and oriented x3. Mood and affect normal. Investigations: White count 20.7, hemoglobin 7.3, platelets 6 7 5, potassium 3.7 Chest x-ray-small pleural effusion, atelectasis Assessment: -Coronary artery disease, status post bypass on 12/12/2079 -Acute ischemic bowel with perforation with right transverse colectomy and takedown of the splenic flexure with resultant ileostomy -Wound VAC -Acute hypoxic respiratory failure status post ventilator support -Hypertensive and septic shock not a covered -Possible atrial fibrillation patient's sinus rhythm -Peripheral artery disease -Hypothyroid -Tablet is mellitus type II -Chronic low back pain from arthritis -Depression otherwise specified -Obesity BMI 34.3 -Acute blood loss anemia as expected from surgery and hospital acquired from blood draws -Hyperlipidemia -Hypoalbuminemia and anemia as an acute phase reactant -Bilateral pleural effusion being managed medically not for thoracentesis -Essential hypertension Plan: Continue with IV antibiotics. Continue with IV Lasix. Computed tomography scan of the abdomen has been ordered. May be noted that patient's white count has been climbing up gradually. Dr. Mccartney has been from infectious disease.
[2017-12-30 16:39] LABS: Glucose,Whole Blood 108 mg/dL (75-99)
[2017-12-30] MEDS: FERROUS SULFATE 325 MG TAB PO SCH (16:41)
[2017-12-30] MEDS: amLODIPine 5 MG TAB PO SCH (16:42)
[2017-12-30] MEDS: CYANOCOBALAMIN 500 MCG TAB PO SCH (16:42)
[2017-12-30] MEDS: ASCORBIC ACID 500 MG TAB PO SCH (16:42)
--- NOTE | 2017-12-30 19:21 | CT ---
EXAMINATION TYPE: CT abdomen pelvis wo con DATE OF EXAM: 12/30/2017 COMPARISON: 12/20/2017 HISTORY: 72-year-old female follow-up Abdominal pain and diarrhea. CT DLP: 1154.9 mGycm. Automated exposure control for dose reduction was used. TECHNIQUE: Contiguous axial scanning of the abdomen and pelvis without IV contrast. Coronal and sagit campbell reconstructions performed. FINDINGS: Extensive artifacts due to patient's arms down by her side and large body habitus. Further limitation s in exam due to lack of contrast. Heart borderline enlarged with trace anterior pericardial effusion. Continued moderate left pleural e ffusion with adjacent atelectasis. Some dependent opacity, likely atelectasis remains at the right ba se. Resolution of previous right effusion. Tiny hiatal hernia. Hepatomegaly at 20.0 cm. Interval resolution of previous pneumoperitoneum. A large wound remains along the midline supraumbili shannan region. Moderate ascites fluid remains along the right side of the abdomen and extending into the pelvis. Als o along the left anterior mid abdomen. There is masslike rounded thickening along the left lateral gastric fundus measuring 5.0 x 4.7 cm of uncertain etiology. Multiple calcified granulomas in the spleen. Noncontrast appearance of the kidneys and atrophic pancr eas show no gross abnormal body. Mild diffuse thickening of the left adrenal gland without discrete n odularity is unchanged. Right adrenal gland within normal limits. No dilated bowel loops. Oral contrast is seen extending within left abdominal small bowel loops and t hen into the distal colon and rectum. There is a right mid abdominal ostomy. Bladder is urine distended. Uterus and left ovary are visualized. Right ovary obscured by adjacent as cites. There is diffuse anasarca-type change. Bones: Multilevel degenerative changes within the spine. IMPRESSION: 1. Exam limitations due to artifacts from arms down by her side, large body habitus, and lack of IV contrast. 2. Right mid abdominal ostomy with wound along the supraumbilical midline and resolution of previous intraperitoneal air. 3. However, moderate abdominopelvic ascites remains. Oral contrast courses through left-sided small bowel loops and then into the sigmoid colon to the rectum. Unable to follow the bowel loops to determ ine what surgery was performed. 4. Abnormal 5.0 cm rounded masslike thickening along the left lateral gastric fundus. Uncertain if t his represents focal gastric wall inflammation. Mass is considered unlikely as this is a new finding from 12/08/2017 5. Continued moderate left pleural effusion with adjacent atelectasis.
[2017-12-30 20:48] LABS: Glucose,Whole Blood 126 mg/dL (75-99)
[2017-12-31] MEDS: HEPARIN SODIUM,PORCINE 5,000 UNIT/ML 1 ML VIAL SQ SCH ×3 (00:06→16:54)
[2017-12-31] MEDS: oxyCODONE ER 20 MG TAB.ER.12H PO SCH ×3 (00:06→15:42)
[2017-12-31 02:05] LABS: Glucose,Whole Blood 102 mg/dL (75-99)
[2017-12-31] MEDS: INSULIN ASPART 100 UNIT/ML 1 ML 10 ML VIAL SQ SCH ×5 (03:52→21:28)
[2017-12-31 06:02] LABS: Glucose,Whole Blood 106 mg/dL (75-99)
[2017-12-31] MEDS: LEVOTHYROXINE 75 MCG TAB PO SCH (06:37)
[2017-12-31 06:47] LABS: Basophils # (A) 0.1 k/uL (0-0.2); Basophils % (A) 1 %; Eosinophils # (A) 0.4 k/uL (0-0.7); Eosinophils % (A) 2 %; HCT 25.7 % (34.0-46.0); Hypochromasia Moderate; Lymphocytes # (A) 1.1 k/uL (1.0-4.8); Lymphocytes % (A) 5 %; MCHC 31.3 g/dL (31.0-37.0); MCV 86.4 fL (80.0-100.0); Mean Platelet Volume 6.9; Monocytes % (A) 5 %; Neutrophils # (A) 18.6 k/uL (1.3-7.7); Neutrophils % (A) 87 %; Poikilocytosis Slight; RBC 2.98 m/uL (3.80-5.40); RDW 15.5 % (11.5-15.5); WBC 21.5 k/uL (3.8-10.6)
[2017-12-31 07:00] LABS: Platelet Count 808 k/uL (150-450)
[2017-12-31 07:03] LABS: ALT 28 U/L (9-52); AST 25 U/L (14-36); Albumin 2.1 g/dL (3.5-5.0); Alkaline Phosphatase 355 U/L (38-126); Anion Gap 5 mmol/L; Blood Urea Nitrogen 13 mg/dL (7-17); Calcium 8.4 mg/dL (8.4-10.2); Carbon Dioxide 30 mmol/L (22-30); Chloride 98 mmol/L (98-107); Glucose 95 mg/dL (74-99); Magnesium 2.2 mg/dL (1.6-2.3); Potassium 3.7 mmol/L (3.5-5.1); Sodium 133 mmol/L (137-145); Total Bilirubin 0.6 mg/dL (0.2-1.3)
--- NOTE | 2017-12-31 07:24 | XR ---
EXAMINATION TYPE: XR chest 2V DATE OF EXAM: 12/31/2017 COMPARISON: 12/30/2017 HISTORY: 72-year-old female post cardiac surgery, pleural effusion TECHNIQUE: Frontal and lateral views FINDINGS: Median sternotomy wires are present. Heart borderline enlarged. Calcified subcarinal lymph node. Smal [id number] left pleural effusion remains, decreased in the interval. Mild interstitial prominence. IMPRESSION: Slight decreased, now small to moderate left pleural effusion with adjacent atelectasis and/or consol idation.
[2017-12-31] MEDS: FUROSEMIDE 10 MG/ML 2 ML VIAL IV SCH ×2 (07:44→21:27)
[2017-12-31] MEDS: MEROPENEM 2 GM in SODIUM CHLORIDE 0.9% 100 ML IVPB SCH ×2 (07:45→21:26)
[2017-12-31] MEDS: PANTOPRAZOLE 40 MG/10 ML VIAL IVP SCH (07:45)
[2017-12-31] MEDS: DULoxetine HCL 60 MG CAPSULE.DR PO SCH (07:46)
[2017-12-31] MEDS: ASPIRIN 81 MG PO SCH (07:46)
[2017-12-31] MEDS: METOPROLOL TARTRATE 25 MG TAB PO SCH ×2 (07:46→21:27)
[2017-12-31] MEDS: hydrALAZINE HCL 10 MG TAB PO SCH ×2 (07:46→21:27)
[2017-12-31] MEDS: CLOPIDOGREL 75 MG TAB PO SCH (07:47)
[2017-12-31] MEDS: AMIODARONE 200 MG TAB PO SCH (07:47)
[2017-12-31] MEDS: ATORVASTATIN 40 MG TAB PO SCH (07:47)
[2017-12-31] MEDS ORDERED: POTASSIUM CHLORIDE ER 20 MEQ TAB.ER PO SCH (08:00)
[2017-12-31] MEDS: IPRATROPIUM-ALBUTEROL 3 ML NEB INHALATION SCH ×4 (08:14→20:04)
[2017-12-31] MEDS: ANIDULAFUNGIN 100 MG in SODIUM CHLORIDE 0.9% 100 ML IVPB SCH (10:18)
[2017-12-31 11:32] LABS: Glucose,Whole Blood 143 mg/dL (75-99)
--- NOTE | 2017-12-31 11:58 | P.PN ---
Subjective Progress Note Date: 12/31/17 Principal diagnosis: Status post CABG, status post right colectomy for acute perforated viscus and necrosis of the transverse and right colon. On today's evaluation of a 12/18/2017 Carolyn is back to the intensive care unit. She is postop day #7 following her coronary artery bypass surgery. She got transferred because of an extensive liquidy/watery diarrhea which left her into a dehydrated state and causes some non-anion gap metabolic acidosis. Her bicarb level is down to 14. She had 3 additional liquidy bowel movements this morning. The patient was seen by general surgery. CAT scan of the abdomen was done raising the possibility of an underlying ischemic colitis. She was placed on accommodation Zosyn and vancomycin. No fever or chills. She also had gone into atrial fibrillation. The rate is controlled right now with metoprolol and amiodarone and the patient is also on IV heparin. She is complaining of pain throughout her chest and body mainly in the joints and she has been taken hydrocodone outpatient basis. I restarted her on [place] 5 every 6 hours for pain control pH is using incentive spirometer. She is on IV fluids and she'll be started on a bicarb drip. The patient's chest x-ray from today showed small bilateral pleural effusion and basilar atelectasis and left lung base. There is also artifact from external objects on the chest x-ray. The postoperative echocardiogram showed a preserved LV function with an ejection fraction of 50-55 %. No valvular abnormalities noted. On today's evaluation of 12/19/2017, the patient is awake and alert and sitting up on a chair. The diarrhea has subsided significantly. She only had liquidy loose bowel movement there was small amount this morning. Otherwise, the patient is was resuscitated IV fluids. The patient received a bicarb infusion yesterday and her serum bicarb normalizes and earlier this morning associated to a normal saline infusion at the rate of 75 mL an hour. Her urine output is around 20-25 mL an hour. The patient's creatinine is normal. BUN is down to 7. Vascular electrodes are all within normal limits and her bicarb level is normalized. No nausea. No vomiting. No abdominal pain. She is taking clear liquid diet. No chest pain. Chest x-ray shows some mild pulmonary vascular congestion and atelectatic changes in lung bases bilaterally. She is on room air oxygen. Sternum stable clean and intact. She has E. coli in the urine and she is on IV Zosyn. Vancomycin was discontinued. IV heparin was discontinued. Her current rhythm is sinus. On 12/20/2017 the patient developed some vague abdominal pain. This pain started approximately 4 AM in the morning. As mentioned earlier the patient is postop from coronary artery bypass surgery and she is postop day #8. The patient is currently in the intensive care unit. X-ray of the chest was done this morning and it showed free air under the diaphragm. This is consistent with pneumoperitoneum and the patient will need further investigation. Immediately the general surgeon was contacted and the patient had a CAT scan of the abdomen and it showed moderate pneumoperitoneum with site of the perforation i not identified although there was suspicion that maybe the distal stomach/duodenal area. The patient currently on IV Zosyn. No cervical leukocytosis. Urine output is dropped down to 20 mL an hour. Her white count from this morning's at 14.3. Patient be taken to the operating room for an expected laparotomy. No altered mentation. No cough or sputum production. No other complaints otherwise for now. On 12/21/2017 I'm seeing this patient for a follow-up. She is a critically ill female patient was taken to the operating room yesterday for an acute bowel perforation. The patient was found to have pneumoperitoneum and the patient was taken to the operating room and the patient underwent expiratory laparotomy and right colectomy and transverse colectomy and takedown of splenic flexure and diverticular colostomy. The patient intraoperatively was found to have necrosis of the transverse colon and the right colon. Postop, the patient was kept intubated and the patient was moved to the intensive care unit for further evaluation and management. Overnight the patient was given fluid aggressively. She was given IV albumin. She was given lactated Ringer solution and normal saline solution. She did drop her pressure and she had also to placed on pressors and she is currently on 3-4 mics of norepinephrine infusion to maintain a mean artery pressure above 65. This morning I give her another liter of lactated Ringer and nontender albumin 5% to bring her CVP above 12. Hemoglobin dropped down to 6.7. Her white count came up to 31.4 and subsequently dropped down to 23. This is expected as the patient had a bowel necrosis and intra-abdominal sepsis. Antibiotic dressings were done and the patient was placed on Merrem and Eraxis. Earlier this morning the patient was on assist-control mode of ventilation and was obvious that the patient was asynchronous and double stacking on a mechanical ventilator. This was occurring even while on 40 mics of Diprivan infusion. Based on this, necessary vent changes were done. The patient was air hungry and she was taken significantly high tidal volumes. I was able to bring the tidal volume of 600 and the rate of 18 with a FiO2 of 40% and a PEEP of 5. Chest x-ray from today showed that the patient had adequate expansion of both lungs. There is a left- sided pleural effusion and ET tube is around 3-4 cm above the al. The net fluid balance over the past 24 hours is +6 L in the urine output is adequate for now. The patient is afebrile. On 12/22/2017 I'm seeing this patient for a follow-up. Note that the patient is postop day #2 following chest was colectomy, right colectomy and ileostomy and the patient is postop day #11 following her coronary artery bypass surgery. This morning the patient was sedated with Diprivan and she was calm and comfortable. Despite being on Diprivan, the patient was easily arousable. She was maintained on assist control mode of ventilation. Throughout the night the patient was an assist-control at the rate of 20 with a tidal volume of 600 and FiO2 of 40% and PEEP of 5. Chest x-ray showing the development of a left-sided pleural effusion. ET tube is in a good location. Rest of the lungs are all in good location is. NG tube is also in place. The blood gases from this morning showed a pH of 7.42 with a pCO2 of 26 and pO2 of 100. No significant orotracheal secretions. Hemodynamically, the patient was aggressively resuscitated IV fluids. She is in a positive fluid balance in order of 6 L at least and the patient was taken off pressors and she's been off the norepinephrine infusion for now. She is producing adequate amount of urine output. She does have a component of non-anion gap metabolic acidosis with a bicarb level of 16. Renal function stable with a creatinine of 0.9. Rest of the electrolytes are all within normal limits. Her white cell count peaked at 27.5 and currently is down to 25. She remains on a broad-spectrum antibiotics including IV Merrem and Ecaris. The cardiac rhythm remains sinus. CVP is somewhat between 10 and 13. Urine output is order of 30-40 mL an hour. Angiopathy was noted. There is also minimal amount of liquidy material within the ileostomy back. Surgical wound site is open and a superior and inferior portion and the wound VAC will be applied to that area. There is no active drainage at this point in time. Based on all this, I give the patient is sedation holiday. She woke up very nicely and she was able to follow commands and answers questions appropriately. Weaning parameters were checked and the patient had a tidal volume of 510 with a vital capacity of 780 within this of 27 and the rapid shallow breathing index of 34. She was given a CPAP trial and following that the patient was extubated to a nasal cannula pH is tolerated extubation without any major difficulties. At this point in time, the patient is extubated, she is following commands and answering questions appropriately. Family is at the bedside. On 12/23/2017, the patient remains extubated. She is postop day #3 following a right colectomy, transverse colectomy and ileostomy and she is postop day #12 following her coronary artery bypass surgery. I was able to wean the patient off the mechanical ventilator and she extubated very nicely without having any major difficulties and currently is on 2 L of oxygen by nasal cannula. Her chest x-ray continues to show a large left-sided pleural effusion. Earlier this morning he was given 40 mg of IV Lasix which improved her urine function and output and the patient is producing more than 50 mL of urine output on hourly basis. She is nothing by mouth. NG tube is in place. Her CVP remains somewhere between 11 and 18. She is producing up to 50 mL of urine output on hourly basis. Rule out able to apply wound VAC to her abdominal wall wound and the open incisions are well covered and she is producing approximately 600 mL of material from the wound VAC system was inserted yesterday. Sternum is stable clean and intact. She is weak and a bit lethargic, slightly worse compared to yesterday and this is probably attributed to her inability to fall asleep throughout the night. No active pain. She is weak. She denies having any specific complaints for now. TPN was started as the patient's pre-albumin and albumin and total protein is extremely low. Serum bicarb is gradually improving is up to 19. On 12/24/2017, the patient is awake and alert and she is postop day #4 from her bowel surgery and postop day #13 from her cardiac surgery. She is awake and alert and she is communicating. She is on 2 L about 2 by nasal cannula. No respiratory distress. She is diuresing and the chest x-ray shows improvement in the volume status and the patient was started on IV Lasix today. She was already producing approximately 40-50 mL an hour of urine output. NG tube is in place and output has been 100 mL over the past 24 hours. The patient has approximately 120cc of output and had ileostomy site. The wound VAC is also in place and the output has been not considerably high. She is doing well. Cardiac rhythm remains in normal sinus mechanism. The patient has TPN for nutritional support. Hemodynamically stable. No hypotension. No pressors requirements. No other significant events overnight. No altered mentation. On 12/25/2017, patient is postoperative day #5 from her bowel surgery, and postoperative day #14 from cardiac surgery. Patient is doing well, she is on 2 L nasal cannula, in no form of distress. Sitting at a bedside chair, asymptomatic. Chest x-ray is suggestive of a good sized left-sided pleural effusion, hence I recommended ultrasound of the chest to be done, may require left-sided thoracentesis. The ultrasound did show good sized left-sided pleural effusion, and I think I will recommend thoracentesis in the next 24 hours. All labs were reviewed including his CBC and renal profile. Clinically the patient is actually doing well. On 12/26/2017, patient is postoperative day #6 from her bowel surgery and postoperative day #15 from cardiac surgery. Remains on 2 L nasal cannula, in no distress, chest x-ray is showing improvement in her bilateral pleural effusions especially the left one. I was planning thoracentesis done the patient today, but considering the patient has excellent urine output, and the pleural effusion seems to be better, will cancel plans for left-sided thoracentesis today. Labs were reviewed, relatively normal electrolytes, and a relatively normal CBC except for hemoglobin of 7.8 which seems to be holding. Patient is asymptomatic, denies any shortness of breath no cough no wheezing no chest pain. No nausea no vomiting no abdominal pain. Her nasogastric tube was pulled out today. We'll start on clear liquids. Reevaluated today on 12/27/2017, patient is postoperative day #7. From her bowel surgery and postoperative day #16 from cardiac surgery. On 2 L nasal cannula, asymptomatic, chest x-ray is basically about the same, small left- sided pleural effusion is noted. Patient is asymptomatic. Labs were reviewed WBC count is 18.7 hemoglobin 8.3 basic metabolic profile is normal renal profile is normal.he patient is seen again 12/29/2017 in follow-up on the selective care unit. She is currently sitting up in a chair at the bedside. She is doing better today as compared to yesterday. She denies any worsening shortness of breath, cough or congestion. Today's chest x-ray shows small to moderate left and small right pleural effusions with adjacent atelectasis with some improvement in the left. She continues to work well with the incentive spirometer. She is maintaining good O2 saturations in the upper 90s on room air. White count 20.1. Hemoglobin 7.5. Creatinine 0.71. The patient is seen again today 12/30/2017 in follow-up on the selective care unit. She is currently resting quite comfortable in bed. She denies any worsening shortness of breath, cough or congestion. She is working well with the incentive spirometer. Currently maintaining good O2 saturations in the 90s on room air. She's afebrile. White count 20.7. Hemoglobin 7.3. Creatinine 0.70. Today's chest x-ray reveals moderate left pleural effusion with adjacent atelectasis. There is some improvement in the right pleural effusion. Reevaluated today on 12/31/2017, patient seems to be quite comfortable, laying in bed, on room air, in no form of distress. Asymptomatic, no cough no wheezing no shortness of breath. He is to have leukocytosis, she also has thrombocytosis , but no evidence of clear-cut infection. CT of the abdomen and pelvis were nondiagnostic. Chest x-ray continues to show small left-sided pleural effusion , not large enough to consider thoracentesis at this point. Not to mention the patient is basically asymptomatic, and she has no active pulmonary symptoms whatsoever. Basic metabolic profile is normal, renal profile is normal. Objective - Vital Signs Vital signs: Vital Signs Temp 96.8 F L 12/31/17 07:48 Pulse 80 12/31/17 11:53 Resp 16 12/31/17 07:48 BP 134/61 12/31/17 07:48 Pulse Ox 95 12/31/17 08:15 Intake & Output 12/30/17 12/31/17 12/31/17 18:59 06:59 18:59 Intake Total 659 Output Total 450 25 Balance 209 -25 Weight 89.9 kg Intake: Oral 659 Output: Urine 450 Post Void Residual 0 Stool 25 Other: Voiding Method Incontinent Incontinent ABP, PAP, CO, CI - Last Documented Arterial Blood Pressure 159/93 Pulmonary Artery Pressure 4/4 Cardiac Output 4.5 Cardiac Index 2.5 - Exam Physical Exam: Revealed a 72-year-old female in no distress. Head: Atraumatic, normocephalic. On 2 L nasal cannula HEENT:[Neck is supple.] [No neck masses.] [No thyromegaly.] [No JVD.] Nasogastric tube was noted but it was removed shortly after. Chest: [Diminished breath sounds at the bases, no crackles or rhonchi or wheezes..] Cardiac Exam: [Normal S1 and S2, no S3 gallop, no murmur.] Abdomen: [Soft, nontender, no megaly, no rebound, no guarding, hypoactive bowel sounds, right lower quadrant ileostomy noted with dark brown liquid drainage. Wound VAC and ileostomy noted. Extremities: [No clubbing, 1+ bipedal edema, no cyanosis.] Neurological Exam: [No focal neurologic deficit.] Psychiatric: Normal mood affect and mental status examination. - Labs CBC & Chem 7: 12/31/17 06:31 12/31/17 06:31 Labs: Abnormal Lab Results - Last 24 Hours (Table) 12/30/17 12/30/17 12/31/17 Range/Units 16:37 20:46 02:04 WBC (3.8-10.6) k/uL RBC (3.80-5.40) m/uL Hgb (11.4-16.0) gm/dL Hct (34.0-46.0) % Plt Count (150-450) k/uL Neutrophils # (1.3-7.7) k/uL Sodium (137-145) mmol/L POC Glucose (mg/dL) 108 H 126 H 102 H (75-99) mg/dL Alkaline Phosphatase (38-126) U/L Total Protein (6.3-8.2) g/dL Albumin (3.5-5.0) g/dL 12/31/17 12/31/17 12/31/17 Range/Units 06:00 06:31 06:31 WBC 21.5 H (3.8-10.6) k/uL RBC 2.98 L (3.80-5.40) m/uL Hgb 8.0 L (11.4-16.0) gm/dL Hct 25.7 L (34.0-46.0) % Plt Count 808 H* (150-450) k/uL Neutrophils # 18.6 H (1.3-7.7) k/uL Sodium 133 L (137-145) mmol/L POC Glucose (mg/dL) 106 H (75-99) mg/dL Alkaline Phosphatase 355 H (38-126) U/L Total Protein 5.0 L (6.3-8.2) g/dL Albumin 2.1 L (3.5-5.0) g/dL 12/31/17 Range/Units 11:31 WBC (3.8-10.6) k/uL RBC (3.80-5.40) m/uL Hgb (11.4-16.0) gm/dL Hct (34.0-46.0) % Plt Count (150-450) k/uL Neutrophils # (1.3-7.7) k/uL Sodium (137-145) mmol/L POC Glucose (mg/dL) 143 H (75-99) mg/dL Alkaline Phosphatase (38-126) U/L Total Protein (6.3-8.2) g/dL Albumin (3.5-5.0) g/dL Assessment and Plan Assessment: #1. Multivessel coronary artery disease, involving left main coronary artery. Status post bypass grafting and surgery was done 12/11/2017 and the patient is postop day #20 #2. Acute perforated viscus with necrosis of the transverse and right colon and the patient is status post right colectomy, transverse colectomy and takedown of splenic flexure with diabetic ileostomy. Postoperative day #10 #3. Acute hypoxic respiratory failure secondary to above. Extubated to a 2 L of oxygen by nasal cannula and the patient has a small left-sided pleural effusion, no plans to do thoracentesis . #4. Acute hypotension, resolved #5. Atrial fibrillation, and expected outcome of surgery , back to sinus #6. Peripheral vascular disease #7. History of nicotine dependence, currently in remission, quit 10 years ago, carries [id number] smoking history #8. Hypothyroidism #9. Diabetes mellitus type 2 #10. Chronic low back pain #11. Depression #12 obesity with a BMI of 34.3 #13 leukocytosis #14 anemia and expected outcome of surgery, #15 hyperlipidemia #16 leukocytosis, but no clear-cut evidence of infection #17 non-anion gap metabolic acidosis, resolved #18 left-sided pleural effusion improving, no need for thoracentesis. #19 severe hypoproteinemia and hyperlipidemia initiated oral feeding. Recommendation: Continue present supportive care measures, will continue to follow. Time with Patient: Less than 30
--- NOTE | 2017-12-31 12:03 | P.PN ---
Subjective Progress Note Date: 12/31/17 Principal diagnosis: Coronary artery disease with critical left main disease. Preserved left ventricular function. Previous medical history of hypertension, hyperlipidemia , diabetes mellitus with preoperative hemoglobin A1c 8.1%, hypothyroid, chest granulomatous disease, peripheral vascular disease status post right fem-pop bypass, previous tobacco dependence with preoperative FEV1 109% of predicted in November 2016, recent fall in June 2017 with torn right rotator cuff, questionable DVT with previous Coumadin use greater than 2 years ago, syncopal episodes, history of paroxysmal atrial fibrillation, chronic low back pain, obesity, depression and preoperative E. coli urinary tract infection. POD #20 urgent quadruple coronary artery bypass grafting using the left internal mammary artery sequentially to the diagonal coronary artery and to the left anterior descending coronary artery, a reverse greater saphenous vein graft from the aorta to the first obtuse marginal coronary artery, a reverse greater saphenous vein graft from the aorta to the third obtuse marginal coronary artery. Bilateral pulmonary vein isolation using the AtriCure radiofrequency clamp. Exclusion of the left atrial appendage using a 35 mm AtriClip. Intraoperative transesophageal echocardiogram and epi-aortic scanning. POD #10 right colectomy, transverse colectomy, takedown splenic flexure, ileostomy performed by Dr. Montoya Postoperative elevation in transaminases, an unexpected outcome, resolving. Leukocytosis, present preoperatively. Postoperative diarrhea, an unexpected outcome. Postoperative normochromic, normocytic anemia, an expected outcome of surgery secondary to cardiopulmonary bypass and hemodilution. Postoperative urinary retention, an unexpected outcome. Postoperative pneumoperitoneum, an unexpected outcome. Necrosis of the transverse colon, right colon and unexpected outcome. Sepsis, septic shock, an unexpected outcome. Postoperative prolonged mechanical ventilation, needed to be reintubated for second surgery, an unexpected outcome. Postoperative left-sided pleural effusion, an unexpected outcome of surgery. Resolving. The patient is currently sitting up to the bedside chair. She is in no acute distress. Denies any complaints of pain or shortness of breath at this time. She is alert and oriented 3. Wound VAC remains in place and was changed yesterday 12/30/2017. Her ileostomy is intact with stool present. She is tolerating oral intake without complaints of any nausea. She has been refusing to ambulate in her room. Her WBC count is 21.5 today, hemoglobin 8.0, and platelets 808. She remains afebrile and is currently on meropenem and Anidulafungin managed by infectious disease. Objective - Vital Signs Vital signs: Vital Signs Temp 96.8 F L 12/31/17 07:48 Pulse 80 12/31/17 11:53 Resp 16 12/31/17 07:48 BP 134/61 12/31/17 07:48 Pulse Ox 95 12/31/17 08:15 Intake & Output 12/30/17 12/31/17 12/31/17 18:59 06:59 18:59 Intake Total 659 Output Total 450 25 Balance 209 -25 Weight 89.9 kg Intake: Oral 659 Output: Urine 450 Post Void Residual 0 Stool 25 Other: Voiding Method Incontinent Incontinent ABP, PAP, CO, CI - Last Documented Arterial Blood Pressure 159/93 Pulmonary Artery Pressure 4/4 Cardiac Output 4.5 Cardiac Index 2.5 - Constitutional General appearance: Present: cooperative, no acute distress, obese - Respiratory Details: Lungs sounds essentially clear throughout, diminished her bilateral bases left greater than right. Respirations are symmetrical and nonlabored. Oxygen saturation are 95% on room air. She is achieving 1250 mL on her incentive spirometry with encouragement. - Cardiovascular Details: Regular rhythm and rate. S1 and S2 present, negative for S3, gallop or murmur. Sternum is stable. Remote telemetry showing normal sinus rhythm heart rate 75. Heart hugger is in place and she is demonstrating appropriate use. Right upper basilic vein midline catheter present and functioning. Knee-high KURT hose and sequential compression devices in place to bilateral lower extremities. No edema present. - Gastrointestinal Gastrointestinal Comment(s): Abdomen is soft, nontender nondistended. Active bowel sounds all 4 abdominal quadrants. Right lower quadrant abdominal ileostomy present with dark brown soft stool. Tolerating oral intake. No guarding or rigidity. - Genitourinary Genitourinary Comment(s): Voiding clear noah urine. Episodes of incontinence. - Integumentary Integumentary Comment(s): Skin is warm and dry. No clubbing or cyanosis present. Midline sternal incision clean dry and approximated. No drainage or redness present. Left leg EVH sites clean dry and approximated. No drainage or redness present. Midline abdominal incision with andrei intact to mid incision and wound VAC in place and was changed yesterday 12/30/2017. - Neurologic Neurologic: Present: CNII-XII intact - Musculoskeletal Musculoskeletal: Present: generalized weakness, strength equal bilaterally - Psychiatric Psychiatric: Present: A&O x's 3, appropriate affect, intact judgment & insight - Allied health notes Allied health notes reviewed: nursing - Labs CBC & Chem 7: 18 06:31 18 06:31 Labs: Abnormal Lab Results - Last 24 Hours (Table) 12/30/17 12/30/17 12/31/17 Range/Units 16:37 20:46 02:04 WBC (3.8-10.6) k/uL RBC (3.80-5.40) m/uL Hgb (11.4-16.0) gm/dL Hct (34.0-46.0) % Plt Count (150-450) k/uL Neutrophils # (1.3-7.7) k/uL Sodium (137-145) mmol/L POC Glucose (mg/dL) 108 H 126 H 102 H (75-99) mg/dL Alkaline Phosphatase (38-126) U/L Total Protein (6.3-8.2) g/dL Albumin (3.5-5.0) g/dL 12/31/17 12/31/17 12/31/17 Range/Units 06:00 06:31 06:31 WBC 21.5 H (3.8-10.6) k/uL RBC 2.98 L (3.80-5.40) m/uL Hgb 8.0 L (11.4-16.0) gm/dL Hct 25.7 L (34.0-46.0) % Plt Count 808 H* (150-450) k/uL Neutrophils # 18.6 H (1.3-7.7) k/uL Sodium 133 L (137-145) mmol/L POC Glucose (mg/dL) 106 H (75-99) mg/dL Alkaline Phosphatase 355 H (38-126) U/L Total Protein 5.0 L (6.3-8.2) g/dL Albumin 2.1 L (3.5-5.0) g/dL 12/31/17 Range/Units 11:31 WBC (3.8-10.6) k/uL RBC (3.80-5.40) m/uL Hgb (11.4-16.0) gm/dL Hct (34.0-46.0) % Plt Count (150-450) k/uL Neutrophils # (1.3-7.7) k/uL Sodium (137-145) mmol/L POC Glucose (mg/dL) 143 H (75-99) mg/dL Alkaline Phosphatase (38-126) U/L Total Protein (6.3-8.2) g/dL Albumin (3.5-5.0) g/dL - Imaging and Cardiology Chest x-ray: report reviewed, image reviewed Assessment and Plan (1) Diarrhea in adult patient Current Visit: Yes Status: Acute Code(s): R19.7 - DIARRHEA, UNSPECIFIED SNOMED Code(s): 62102508 (2) Chronic low back pain Current Visit: Yes Status: Chronic Code(s): M54.5 - LOW BACK PAIN; G89.29 - OTHER CHRONIC PAIN SNOMED Code(s): 893872632 (3) Coronary artery disease involving left main coronary artery Current Visit: Yes Status: Chronic Code(s): I25.10 - ATHSCL HEART DISEASE OF [place] CORONARY ARTERY W/O ANG PCTRS SNOMED Code(s): 668518667 (4) Diabetes Current Visit: Yes Status: Chronic Code(s): E11.9 - TYPE 2 DIABETES MELLITUS WITHOUT COMPLICATIONS SNOMED Code(s): 12139404 (5) Family history of heart disease Current Visit: Yes Status: Chronic Code(s): Z82.49 - FAMILY HX OF ISCHEM HEART DIS AND OTH DIS OF THE CIRC SYS SNOMED Code(s): 446964960 (6) Hyperlipidemia Current Visit: Yes Status: Chronic Code(s): E78.5 - HYPERLIPIDEMIA, UNSPECIFIED SNOMED Code(s): 71414600 (7) Hypertension Current Visit: Yes Status: Chronic Code(s): I10 - ESSENTIAL (PRIMARY) HYPERTENSION SNOMED Code(s): 76599105 (8) Hypothyroid Current Visit: Yes Status: Chronic Code(s): E03.9 - HYPOTHYROIDISM, UNSPECIFIED SNOMED Code(s): 13762054 (9) Peripheral vascular disease Current Visit: Yes Status: Chronic Code(s): I73.9 - PERIPHERAL VASCULAR DISEASE, UNSPECIFIED SNOMED Code(s): 044241587 (10) History of DVT (deep vein thrombosis) Current Visit: No Status: Resolved Code(s): Z86.718 - PERSONAL HISTORY OF OTHER VENOUS THROMBOSIS AND EMBOLISM SNOMED Code(s): 604623827 (11) History of atrial fibrillation Current Visit: No Status: Resolved Code(s): Z86.79 - PERSONAL HISTORY OF OTHER DISEASES OF THE CIRCULATORY SYSTEM SNOMED Code(s): 582002147 (12) Tobacco dependence in remission Current Visit: No Status: Resolved Code(s): F17.201 - NICOTINE DEPENDENCE, UNSPECIFIED, IN REMISSION SNOMED Code(s): 340198134 (13) Intestinal necrosis Current Visit: Yes Status: Acute Code(s): K55.069 - ACUTE INFARCTION OF INTESTINE, PART AND EXTENT UNSPECIFIED SNOMED Code(s): 14956702 (14) Ileostomy in place Current Visit: Yes Status: Acute Code(s): Z93.2 - ILEOSTOMY STATUS SNOMED Code(s): 164698159 (15) Ileostomy care Current Visit: Yes Status: Acute Code(s): Z43.2 - ENCOUNTER FOR ATTENTION TO ILEOSTOMY SNOMED Code(s): 187014420 (16) Ischemic colitis Current Visit: Yes Status: Acute Code(s): K55.9 - VASCULAR DISORDER OF INTESTINE, UNSPECIFIED SNOMED Code(s): 59120749 Plan: 1. Continue low dose aspirin, statin, plavix and beta sheree. Will increase her beta sheree as tolerated. 2. Continue Lasix 20 mg IV twice a day. Replace past potassium per protocol. 3. Continue meropenem and a right Eraxis managed by Dr. Mccartney from infectious disease. 4. Continue amiodarone for A. fib prophylaxis. Currently on amiodarone 200 mg by mouth daily. 5. Encourage use of her incentive spirometry every hour while awake. 6. Monitor daily labs, chest x-rays. Pre-albumin pending. 7. GI/DVT prophylaxis. 8. Pain control with current medication regimen. 9. Bronchodilators management per pulmonology. 10. Insulin/diabetic management per primary care service. 11. Wound VAC management per general surgery recommendations to her abdominal incisions. VAC dressing and ileostomy dressing change yesterday 12/30/2017. VAC dressing will be changed again on 01/02/2018 by the wound ostomy nurse. 12. Continue bladder scans after each void or every 6 hours. If greater than 300 mL residual please straight cath. 13. Increase activity as tolerated, physical therapy/occupational therapy and cardiac rehab following. 14. Patient may benefit from long-term acute care when discharged due to her wound VAC dressing and need for further rehabilitation. 15. More recommendations to follow based on patient's clinical course. Time with Patient: Greater than 30
[2017-12-31] MEDS: amLODIPine 5 MG TAB PO SCH (12:13)
[2017-12-31] MEDS: CYANOCOBALAMIN 500 MCG TAB PO SCH (12:13)
[2017-12-31] MEDS: ACETAMINOPHEN TAB 325 MG TAB PO PRN (12:13)
[2017-12-31] MEDS: FERROUS SULFATE 325 MG TAB PO SCH (12:13)
[2017-12-31] MEDS: ASCORBIC ACID 500 MG TAB PO SCH (12:13)
--- NOTE | 2017-12-31 14:08 | P.PN ---
Subjective Progress Note Date: 12/31/17 The patient is a 72-year-old female status post exploratory laparotomy including colectomy with ostomy creation. She reports feeling better today than yesterday. No reports of abdominal pain. Abdominal CT scan obtained yesterday as well. White blood cell count continued to elevate including platelet count. Objective - Vital Signs Vital signs: Vital Signs Temp 98 F 12/31/17 12:00 Pulse 70 12/31/17 12:00 Resp 16 12/31/17 12:00 BP 113/56 12/31/17 12:00 Pulse Ox 96 12/31/17 12:00 Intake & Output 12/30/17 12/31/17 12/31/17 18:59 06:59 18:59 Intake Total 659 Output Total 450 25 Balance 209 -25 Weight 89.9 kg Intake: Oral 659 Output: Urine 450 Post Void Residual 0 Stool 25 Other: Voiding Method Incontinent Incontinent ABP, PAP, CO, CI - Last Documented Arterial Blood Pressure 159/93 Pulmonary Artery Pressure 4/4 Cardiac Output 4.5 Cardiac Index 2.5 - Exam GENERAL: Well developed and in no acute distress. HEENT: No sclera icterus. Extraocular movements grossly intact. Moist buccal mucosa. Head is atraumatic, normocephalic. Hears conversational speech. No nasal drainage. NECK: Supple without lymphadenopathy. CHEST: Non-labored respirations and equal bilateral excursions. CARDIOVASCULAR: Regular rate. Regular rhythm. Palpable 2+ radial pulses. Cardiac brace present. ABDOMEN: Soft, nontender. Ostomy pink pain and functioning. No peritonitis. MUSCULOSKELETAL: Clubbing cyanosis or edema NEUROLOGIC: No focal or lateralizing signs. Cranial nerves II-12 grossly intact PSYCH: Appropriate affect. Alert and oriented to person, place and time. SKIN: Good skin turgor. Well perfused. Ecchymoses bilateral upper arms pre- existing. - Labs CBC & Chem 7: 12/31/17 06:31 12/31/17 06:31 Labs: Abnormal Lab Results - Last 24 Hours (Table) 12/30/17 12/30/17 12/31/17 Range/Units 16:37 20:46 02:04 WBC (3.8-10.6) k/uL RBC (3.80-5.40) m/uL Hgb (11.4-16.0) gm/dL Hct (34.0-46.0) % Plt Count (150-450) k/uL Neutrophils # (1.3-7.7) k/uL Sodium (137-145) mmol/L POC Glucose (mg/dL) 108 H 126 H 102 H (75-99) mg/dL Alkaline Phosphatase (38-126) U/L Total Protein (6.3-8.2) g/dL Albumin (3.5-5.0) g/dL 12/31/17 12/31/17 12/31/17 Range/Units 06:00 06:31 06:31 WBC 21.5 H (3.8-10.6) k/uL RBC 2.98 L (3.80-5.40) m/uL Hgb 8.0 L (11.4-16.0) gm/dL Hct 25.7 L (34.0-46.0) % Plt Count 808 H* (150-450) k/uL Neutrophils # 18.6 H (1.3-7.7) k/uL Sodium 133 L (137-145) mmol/L POC Glucose (mg/dL) 106 H (75-99) mg/dL Alkaline Phosphatase 355 H (38-126) U/L Total Protein 5.0 L (6.3-8.2) g/dL Albumin 2.1 L (3.5-5.0) g/dL 12/31/17 Range/Units 11:31 WBC (3.8-10.6) k/uL RBC (3.80-5.40) m/uL Hgb (11.4-16.0) gm/dL Hct (34.0-46.0) % Plt Count (150-450) k/uL Neutrophils # (1.3-7.7) k/uL Sodium (137-145) mmol/L POC Glucose (mg/dL) 143 H (75-99) mg/dL Alkaline Phosphatase (38-126) U/L Total Protein (6.3-8.2) g/dL Albumin (3.5-5.0) g/dL - Imaging and Cardiology CT scan - abdomen: image reviewed CT scan - pelvis: image reviewed (Images reviewed demonstrating ascites. No free air identified.) Assessment and Plan (1) Ileostomy in place Current Visit: Yes Status: Acute Code(s): Z93.2 - ILEOSTOMY STATUS SNOMED Code(s): 369520100 (2) Intestinal necrosis Current Visit: Yes Status: Acute Code(s): K55.069 - ACUTE INFARCTION OF INTESTINE, PART AND EXTENT UNSPECIFIED SNOMED Code(s): 08807044 (3) Leukocytosis Current Visit: Yes Status: Acute Code(s): D72.829 - ELEVATED WHITE BLOOD CELL COUNT, UNSPECIFIED SNOMED Code(s): 018023453 (4) Coronary artery disease involving left main coronary artery Current Visit: Yes Status: Chronic Code(s): I25.10 - ATHSCL HEART DISEASE OF [place] CORONARY ARTERY W/O ANG PCTRS SNOMED Code(s): 012902893 Plan: 1. Continue diet. 2. Recommend re-assessment by infectious disease. 3. No additional surgical intervention at this time
[2017-12-31 16:19] LABS: Glucose,Whole Blood 95 mg/dL (75-99)
[2017-12-31 21:29] LABS: Glucose,Whole Blood 123 mg/dL (75-99)
--- NOTE | 2017-12-31 21:51 | P.PN ---
Progress Note - Text Progress Note Date: 12/31/17 Presenting complaint: Tired Interval history: Patient status post CABG followed by ischemic bowel and bowel perforation resulting in ileostomy and a wound VAC. Today-feeling weak and tired. Not much of an appetite. Minimal output from the ileostomy. Wound VAC remains in place. Short of breath. Sitting up in a chair for short time. Review of systems: Was done for constitutional, cardiovascular, GI, pulmonary. relevant finding as above Current medications are reviewed and include antifungal, IV Lasix 20 mg every 12 , IV meropenem On examination: VITAL SIGNS: 98, 72, 16, 103/56, 96% room air GENERAL APPEARANCE: Laying in bed tired appearing, awake. HEENT: Normal external appearance of nose and ear. Oral cavity normal EYES: Pupils equal. Conjunctiva pale NECK: JVD unable to assess. Mass not palpable. RESPIRATORY: Respiratory effort increased, lungs decreased breath sounds. CARDIOVASCULAR: First and second sounds normal. Mild edema. ABDOMEN: Soft. Liver and spleen not palpable. Mild tenderness. Ileostomy bag empty, wound VAC in place. Bowel sounds present PSYCHIATRY: Alert and oriented x3. Mood and affect normal. Investigations: White count 21.5, hemoglobin 8, platelet 808, potassium 3.7 Assessment: -Coronary artery disease, status post bypass on 12/12/2079 -Acute ischemic bowel with perforation with right transverse colectomy and takedown of the splenic flexure with resultant ileostomy -Wound VAC -Acute hypoxic respiratory failure status post ventilator support -Hypertensive and septic shock not a covered -Possible atrial fibrillation patient's sinus rhythm -Peripheral artery disease -Hypothyroid -Tablet is mellitus type II -Chronic low back pain from arthritis -Depression otherwise specified -Obesity BMI 34.3 -Acute blood loss anemia as expected from surgery and hospital acquired from blood draws -Hyperlipidemia -Hypoalbuminemia and anemia as an acute phase reactant -Bilateral pleural effusion being managed medically not for thoracentesis -Essential hypertension Continue current medication treatment plan. Climbing white count is a concern. Await for the ID input. Already on broad-spectrum antibiotic. And antifungal. Concern of it there is intra-abdominal collection on for the ischemic bowel. Patient also being followed by surgery.
[2018-01-01] MEDS: oxyCODONE ER 20 MG TAB.ER.12H PO SCH ×4 (00:22→23:59)
[2018-01-01] MEDS: HEPARIN SODIUM,PORCINE 5,000 UNIT/ML 1 ML VIAL SQ SCH ×3 (00:23→17:15)
[2018-01-01 02:09] LABS: Glucose,Whole Blood 105 mg/dL (75-99)
[2018-01-01] MEDS: INSULIN ASPART 100 UNIT/ML 1 ML 10 ML VIAL SQ SCH ×5 (02:13→21:29)
[2018-01-01 06:22] LABS: Glucose,Whole Blood 98 mg/dL (75-99)
[2018-01-01 06:23] LABS: ALT 30 U/L (9-52); AST 21 U/L (14-36); Alkaline Phosphatase 307 U/L (38-126); Anion Gap 7 mmol/L; Blood Urea Nitrogen 12 mg/dL (7-17); Calcium 8.2 mg/dL (8.4-10.2); Carbon Dioxide 29 mmol/L (22-30); Chloride 98 mmol/L (98-107); Glucose 85 mg/dL (74-99); Potassium 3.5 mmol/L (3.5-5.1); Sodium 134 mmol/L (137-145); Total Bilirubin 0.5 mg/dL (0.2-1.3); Total Protein 4.7 g/dL (6.3-8.2)
[2018-01-01 06:24] LABS: Basophils # (A) 0.1 k/uL (0-0.2); Basophils % (A) 0 %; Eosinophils # (A) 0.5 k/uL (0-0.7); Eosinophils % (A) 3 %; HCT 23.5 % (34.0-46.0); HGB 7.3 gm/dL (11.4-16.0); Hypochromasia Moderate; Lymphocytes # (A) 1.2 k/uL (1.0-4.8); Lymphocytes % (A) 7 %; MCH 26.7 pg (25.0-35.0); MCHC 31.2 g/dL (31.0-37.0); MCV 85.7 fL (80.0-100.0); Mean Platelet Volume 6.9; Monocytes # (A) 0.9 k/uL (0-1.0); Monocytes % (A) 5 %; Neutrophils # (A) 13.8 k/uL (1.3-7.7); Neutrophils % (A) 82 %; Platelet Count 764 k/uL (150-450); Poikilocytosis Slight; RBC 2.74 m/uL (3.80-5.40); RDW 15.5 % (11.5-15.5); WBC 16.8 k/uL (3.8-10.6)
[2018-01-01] MEDS: PANTOPRAZOLE 40 MG TABLET PO SCH (07:11)
[2018-01-01] MEDS: LEVOTHYROXINE 75 MCG TAB PO SCH (07:11)
[2018-01-01] MEDS: IPRATROPIUM-ALBUTEROL 3 ML NEB INHALATION SCH ×4 (07:23→19:53)
--- NOTE | 2018-01-01 07:42 | XR ---
EXAMINATION TYPE: XR chest 1V portable DATE OF EXAM: 01/01/2018 Comparison: 12/31/2017 Clinical History: 72-year-old female post op CABG Findings: Median sternotomy wires with post-CABG clips in the mediastinum. Continued [id number] left ple ural effusion with adjacent opacity. Mild diffuse interstitial prominence shows slight improvement. C alcified subcarinal lymph node. Impression: Stable small to moderate left pleural effusion with adjacent atelectasis and/or consolidation.
--- NOTE | 2018-01-01 08:20 | PN ---
PROGRESS NOTE This patient is status post coronary artery bypass surgery and status post colectomy for acute perforated bowel. The patient is comfortable. She is lying comfortably in the bed without any respiratory distress. The patient is abdominal pain. She denies any chest pain or shortness of breath. The patient is afebrile. Heart rate is 75 per minute, blood pressure is 129/63 mmHg, oxygen saturation is 98%. First and second heart sounds are normal. Lungs are fairly clear to auscultation and percussion. Patient's hemoglobin is 8. White count remains elevated. Creatinine is 0.64. Patient's medications are reviewed. Current medications will be continued. MMODL / IJN: [id number] /
--- NOTE | 2018-01-01 08:22 | P.PN ---
Subjective Progress Note Date: 01/01/18 Principal diagnosis: Coronary artery disease with critical left main disease. Preserved left ventricular function. Previous medical history of hypertension, hyperlipidemia , diabetes mellitus with preoperative hemoglobin A1c 8.1%, hypothyroid, chest granulomatous disease, peripheral vascular disease status post right fem-pop bypass, previous tobacco dependence with FEV1 109% of predicted in November 2016, recent fall in June 2017 with torn right rotator cuff, questionable DVT with previous Coumadin use greater than 2 years ago, syncopal episodes, paroxysmal atrial fibrillation, chronic low back pain, obesity, and depression. Preoperative E. coli urinary tract infection. POD #21 urgent quadruple coronary artery bypass grafting using the left internal mammary sequentially to the diagonal artery and to the left anterior descending artery, reverse saphenous vein graft from the aorta to the first obtuse marginal, reverse saphenous vein graft from the aorta to the third obtuse marginal artery. Bilateral pulmonary vein isolation using the AtriCure radiofrequency clamp. Exclusion of the left atrial appendage using a 35 mm AtriClip. Intraoperative transesophageal echocardiogram and epi-aortic scanning. Postoperative elevation in transaminases, an unexpected outcome, resolving. Leukocytosis, present preoperatively. Postoperative diarrhea, an unexpected outcome. Postoperative normocytic, normochromic anemia, and expected outcome of surgery secondary to cardiopulmonary bypass and hemodilution. Postoperative urinary retention, an unexpected outcome. Postoperative pneumoperitoneum, an unexpected outcome. Necrosis of the transverse colon, right colon, an unexpected outcome. Sepsis, septic shock, an unexpected outcome. POD #11 right colectomy, transverse colectomy, takedown splenic flexure, ileostomy performed by Dr. Montoya. Postoperative prolonged mechanical ventilation, need to be reintubated for second surgery, an unexpected outcome. Postoperative left-sided pleural effusion, an unexpected outcome, resolving. Patient is currently sitting up in the chair in no acute distress eating breakfast. Denies pain or shortness of breath at this time. No new complaints. White blood cell count was was continuing to climb again with results of 21.5 yesterday but has come down to 16.8 this morning. Patient is on day 10 of her meropenem and Eraxis. She remains afebrile. She does have stool in her ostomy. Wound VAC is in place, was changed Monday. Attempts have been made to ambulate patient however she requires 3-4 person assist and is very weak. Objective - Vital Signs Vital signs: Vital Signs Temp 98.4 F 01/01/18 04:00 Pulse 72 01/01/18 07:35 Resp 16 01/01/18 04:00 BP 122/63 01/01/18 04:00 Pulse Ox 95 01/01/18 04:00 Intake & Output 12/31/17 01/01/18 01/01/18 18:59 06:59 18:59 Intake Total 582 265 350 Balance 582 265 350 Weight 90.322 kg Intake: Oral 582 265 350 Other: Voiding Method Incontinent Incontinent # Voids 1 ABP, PAP, CO, CI - Last Documented Arterial Blood Pressure 159/93 Pulmonary Artery Pressure 4/4 Cardiac Output 4.5 Cardiac Index 2.5 - Constitutional General appearance: Present: cooperative, no acute distress, obese - Respiratory Details: Lungs sounds diminished bilaterally, left side greater than right, improved over last week. Respirations even, nonlabored. Currently on room air with oxygen saturation 95%. Able to achieve 1500 mL on her incentive spirometry. Strong cough. - Cardiovascular Details: S1, S2 present. Regular rate and rhythm, sinus rhythm on telemetry. Sternum stable. Palpable peripheral pulses bilaterally. Bilateral lower extremity pitting edema present. Right upper basilic vein midline catheter present. Heart hugger in place with patient demonstrating appropriate use. Antiembolism stockings, SCDs recently removed as they became soiled per nursing. - Gastrointestinal Gastrointestinal Comment(s): Abdomen soft, nondistended. Active bowel sounds present. Right lower quadrant ileostomy present with dark brown liquid stool. Tolerating diet. - Genitourinary Genitourinary Comment(s): Patient remains incontinent of urine, she is being bladder scanned after each void with minimal residual per nursing. - Integumentary Integumentary Comment(s): Skin is warm and dry. Anterior chest incision well approximated with dry intact dressing present. Left lower semi-EVH site well approximated. Midline abdominal incision clean, andrei intact, wound VAC present. - Neurologic Neurologic: Present: CNII-XII intact - Musculoskeletal Musculoskeletal: Present: generalized weakness, strength equal bilaterally - Psychiatric Psychiatric: Present: A&O x's 3, appropriate affect, intact judgment & insight - Allied health notes Allied health notes reviewed: nursing - Labs CBC & Chem 7: 01/01/18 05:50 01/01/18 05:50 Labs: Abnormal Lab Results - Last 24 Hours (Table) 12/31/17 12/31/17 01/01/18 Range/Units 11:31 21:27 02:08 WBC (3.8-10.6) k/uL RBC (3.80-5.40) m/uL Hgb (11.4-16.0) gm/dL Hct (34.0-46.0) % Plt Count (150-450) k/uL Neutrophils # (1.3-7.7) k/uL Sodium (137-145) mmol/L POC Glucose (mg/dL) 143 H 123 H 105 H (75-99) mg/dL Calcium (8.4-10.2) mg/dL Alkaline Phosphatase (38-126) U/L Total Protein (6.3-8.2) g/dL Albumin (3.5-5.0) g/dL 01/01/18 01/01/18 Range/Units 05:50 05:50 WBC 16.8 H (3.8-10.6) k/uL RBC 2.74 L (3.80-5.40) m/uL Hgb 7.3 L (11.4-16.0) gm/dL Hct 23.5 L (34.0-46.0) % Plt Count 764 H (150-450) k/uL Neutrophils # 13.8 H (1.3-7.7) k/uL Sodium 134 L (137-145) mmol/L POC Glucose (mg/dL) (75-99) mg/dL Calcium 8.2 L (8.4-10.2) mg/dL Alkaline Phosphatase 307 H (38-126) U/L Total Protein 4.7 L (6.3-8.2) g/dL Albumin 2.0 L (3.5-5.0) g/dL - Imaging and Cardiology Chest x-ray: report reviewed, image reviewed Assessment and Plan (1) Coronary artery disease involving left main coronary artery Current Visit: Yes Status: Chronic Code(s): I25.10 - ATHSCL HEART DISEASE OF [place] CORONARY ARTERY W/O ANG PCTRS SNOMED Code(s): 894617792 (2) Hypertension Current Visit: Yes Status: Chronic Code(s): I10 - ESSENTIAL (PRIMARY) HYPERTENSION SNOMED Code(s): 62338327 (3) Hyperlipidemia Current Visit: Yes Status: Chronic Code(s): E78.5 - HYPERLIPIDEMIA, UNSPECIFIED SNOMED Code(s): 99800624 (4) Diabetes Current Visit: Yes Status: Chronic Code(s): E11.9 - TYPE 2 DIABETES MELLITUS WITHOUT COMPLICATIONS SNOMED Code(s): 56453325 (5) Peripheral vascular disease Current Visit: Yes Status: Chronic Code(s): I73.9 - PERIPHERAL VASCULAR DISEASE, UNSPECIFIED SNOMED Code(s): 616131972 (6) Family history of heart disease Current Visit: Yes Status: Chronic Code(s): Z82.49 - FAMILY HX OF ISCHEM HEART DIS AND OTH DIS OF THE CIRC SYS SNOMED Code(s): 057245624 (7) Tobacco dependence in remission Current Visit: No Status: Resolved Code(s): F17.201 - NICOTINE DEPENDENCE, UNSPECIFIED, IN REMISSION SNOMED Code(s): 037940025 (8) Hypothyroid Current Visit: Yes Status: Chronic Code(s): E03.9 - HYPOTHYROIDISM, UNSPECIFIED SNOMED Code(s): 96249803 (9) Syncopal episodes Current Visit: No Status: Chronic Code(s): R55 - SYNCOPE AND COLLAPSE SNOMED Code(s): 385858300 (10) History of DVT (deep vein thrombosis) Current Visit: No Status: Resolved Code(s): Z86.718 - PERSONAL HISTORY OF OTHER VENOUS THROMBOSIS AND EMBOLISM SNOMED Code(s): 599073825 (11) History of atrial fibrillation Current Visit: No Status: Resolved Code(s): Z86.79 - PERSONAL HISTORY OF OTHER DISEASES OF THE CIRCULATORY SYSTEM SNOMED Code(s): 458221328 (12) Chronic low back pain Current Visit: Yes Status: Chronic Code(s): M54.5 - LOW BACK PAIN; G89.29 - OTHER CHRONIC PAIN SNOMED Code(s): 499158860 (13) Depression Current Visit: Yes Status: Chronic Code(s): F32.9 - MAJOR DEPRESSIVE DISORDER, SINGLE EPISODE, UNSPECIFIED SNOMED Code(s): 71327499 Plan: 1. Continue low-dose aspirin, statin, Plavix, hydralazine, beta sheree, Norvasc. 2. Bronchodilators per pulmonology. 3. Continue amiodarone for A. fib prophylaxis. 4. Continue meropenem, Eraxis for [address] Mccartney. 5. IV Lasix increased to every 8 hours. 6. Bladder scan after each void or every 6 hours. Straight cath for > 300 mL residual. 7. Monitor daily labs, chest x-rays. Prealbumin still pending. 8. GI prophylaxis with Protonix. DVT prophylaxis with subcu heparin, SCDs. 9. Pain control with current medication regimen. 10. Insulin/diabetic management per primary care. 11. Wound VAC per general surgery to abdominal incisions. To be changed Monday , Monday, Monday. 12. Increase activity, ambulate as tolerated. PT/OT/cardiac rehab following. 13. Discharge planning in progress. Anticipate discharge soon. Patient will need subacute rehab at discharge. 14. Per general surgery, patient can be discharged to subacute rehab versus long-term acute care with wound VAC in place and andrei remaining, to follow- up with Dr. Montoya in his office 1 week after discharge. 15. More recommendations to follow. Time with Patient: Greater than 30
[2018-01-01] MEDS: FUROSEMIDE 10 MG/ML 2 ML VIAL IV SCH (08:39)
[2018-01-01] MEDS: hydrALAZINE HCL 10 MG TAB PO SCH ×2 (08:40→20:14)
[2018-01-01] MEDS: AMIODARONE 200 MG TAB PO SCH (08:40)
[2018-01-01] MEDS: ATORVASTATIN 40 MG TAB PO SCH (08:40)
[2018-01-01] MEDS: METOPROLOL TARTRATE 25 MG TAB PO SCH ×2 (08:41→20:14)
[2018-01-01] MEDS: CYANOCOBALAMIN 500 MCG TAB PO SCH (08:41)
[2018-01-01] MEDS: DULoxetine HCL 60 MG CAPSULE.DR PO SCH (08:41)
[2018-01-01] MEDS: CLOPIDOGREL 75 MG TAB PO SCH (08:41)
[2018-01-01] MEDS: ASPIRIN 81 MG PO SCH (08:41)
[2018-01-01] MEDS: FERROUS SULFATE 325 MG TAB PO SCH (08:41)
[2018-01-01] MEDS: ASCORBIC ACID 500 MG TAB PO SCH (08:42)
[2018-01-01] MEDS: MEROPENEM 2 GM in SODIUM CHLORIDE 0.9% 100 ML IVPB SCH ×2 (08:42→20:20)
[2018-01-01] MEDS: ACETAMINOPHEN TAB 325 MG TAB PO PRN ×2 (09:57→17:21)
--- NOTE | 2018-01-01 11:03 | P.PN ---
Subjective Progress Note Date: 01/01/18 Principal diagnosis: Status post CABG, status post right colectomy for acute perforated viscus and necrosis of the transverse and right colon. On today's evaluation of a 12/18/2017 Carolyn is back to the intensive care unit. She is postop day #7 following her coronary artery bypass surgery. She got transferred because of an extensive liquidy/watery diarrhea which left her into a dehydrated state and causes some non-anion gap metabolic acidosis. Her bicarb level is down to 14. She had 3 additional liquidy bowel movements this morning. The patient was seen by general surgery. CAT scan of the abdomen was done raising the possibility of an underlying ischemic colitis. She was placed on accommodation Zosyn and vancomycin. No fever or chills. She also had gone into atrial fibrillation. The rate is controlled right now with metoprolol and amiodarone and the patient is also on IV heparin. She is complaining of pain throughout her chest and body mainly in the joints and she has been taken hydrocodone outpatient basis. I restarted her on [place] 5 every 6 hours for pain control pH is using incentive spirometer. She is on IV fluids and she'll be started on a bicarb drip. The patient's chest x-ray from today showed small bilateral pleural effusion and basilar atelectasis and left lung base. There is also artifact from external objects on the chest x-ray. The postoperative echocardiogram showed a preserved LV function with an ejection fraction of 50-55 %. No valvular abnormalities noted. On today's evaluation of 12/19/2017, the patient is awake and alert and sitting up on a chair. The diarrhea has subsided significantly. She only had liquidy loose bowel movement there was small amount this morning. Otherwise, the patient is was resuscitated IV fluids. The patient received a bicarb infusion yesterday and her serum bicarb normalizes and earlier this morning associated to a normal saline infusion at the rate of 75 mL an hour. Her urine output is around 20-25 mL an hour. The patient's creatinine is normal. BUN is down to 7. Vascular electrodes are all within normal limits and her bicarb level is normalized. No nausea. No vomiting. No abdominal pain. She is taking clear liquid diet. No chest pain. Chest x-ray shows some mild pulmonary vascular congestion and atelectatic changes in lung bases bilaterally. She is on room air oxygen. Sternum stable clean and intact. She has E. coli in the urine and she is on IV Zosyn. Vancomycin was discontinued. IV heparin was discontinued. Her current rhythm is sinus. On 12/20/2017 the patient developed some vague abdominal pain. This pain started approximately 4 AM in the morning. As mentioned earlier the patient is postop from coronary artery bypass surgery and she is postop day #8. The patient is currently in the intensive care unit. X-ray of the chest was done this morning and it showed free air under the diaphragm. This is consistent with pneumoperitoneum and the patient will need further investigation. Immediately the general surgeon was contacted and the patient had a CAT scan of the abdomen and it showed moderate pneumoperitoneum with site of the perforation i not identified although there was suspicion that maybe the distal stomach/duodenal area. The patient currently on IV Zosyn. No cervical leukocytosis. Urine output is dropped down to 20 mL an hour. Her white count from this morning's at 14.3. Patient be taken to the operating room for an expected laparotomy. No altered mentation. No cough or sputum production. No other complaints otherwise for now. On 12/21/2017 I'm seeing this patient for a follow-up. She is a critically ill female patient was taken to the operating room yesterday for an acute bowel perforation. The patient was found to have pneumoperitoneum and the patient was taken to the operating room and the patient underwent expiratory laparotomy and right colectomy and transverse colectomy and takedown of splenic flexure and diverticular colostomy. The patient intraoperatively was found to have necrosis of the transverse colon and the right colon. Postop, the patient was kept intubated and the patient was moved to the intensive care unit for further evaluation and management. Overnight the patient was given fluid aggressively. She was given IV albumin. She was given lactated Ringer solution and normal saline solution. She did drop her pressure and she had also to placed on pressors and she is currently on 3-4 mics of norepinephrine infusion to maintain a mean artery pressure above 65. This morning I give her another liter of lactated Ringer and nontender albumin 5% to bring her CVP above 12. Hemoglobin dropped down to 6.7. Her white count came up to 31.4 and subsequently dropped down to 23. This is expected as the patient had a bowel necrosis and intra-abdominal sepsis. Antibiotic dressings were done and the patient was placed on Merrem and Eraxis. Earlier this morning the patient was on assist-control mode of ventilation and was obvious that the patient was asynchronous and double stacking on a mechanical ventilator. This was occurring even while on 40 mics of Diprivan infusion. Based on this, necessary vent changes were done. The patient was air hungry and she was taken significantly high tidal volumes. I was able to bring the tidal volume of 600 and the rate of 18 with a FiO2 of 40% and a PEEP of 5. Chest x-ray from today showed that the patient had adequate expansion of both lungs. There is a left- sided pleural effusion and ET tube is around 3-4 cm above the al. The net fluid balance over the past 24 hours is +6 L in the urine output is adequate for now. The patient is afebrile. On 12/22/2017 I'm seeing this patient for a follow-up. Note that the patient is postop day #2 following chest was colectomy, right colectomy and ileostomy and the patient is postop day #11 following her coronary artery bypass surgery. This morning the patient was sedated with Diprivan and she was calm and comfortable. Despite being on Diprivan, the patient was easily arousable. She was maintained on assist control mode of ventilation. Throughout the night the patient was an assist-control at the rate of 20 with a tidal volume of 600 and FiO2 of 40% and PEEP of 5. Chest x-ray showing the development of a left-sided pleural effusion. ET tube is in a good location. Rest of the lungs are all in good location is. NG tube is also in place. The blood gases from this morning showed a pH of 7.42 with a pCO2 of 26 and pO2 of 100. No significant orotracheal secretions. Hemodynamically, the patient was aggressively resuscitated IV fluids. She is in a positive fluid balance in order of 6 L at least and the patient was taken off pressors and she's been off the norepinephrine infusion for now. She is producing adequate amount of urine output. She does have a component of non-anion gap metabolic acidosis with a bicarb level of 16. Renal function stable with a creatinine of 0.9. Rest of the electrolytes are all within normal limits. Her white cell count peaked at 27.5 and currently is down to 25. She remains on a broad-spectrum antibiotics including IV Merrem and Ecaris. The cardiac rhythm remains sinus. CVP is somewhat between 10 and 13. Urine output is order of 30-40 mL an hour. Angiopathy was noted. There is also minimal amount of liquidy material within the ileostomy back. Surgical wound site is open and a superior and inferior portion and the wound VAC will be applied to that area. There is no active drainage at this point in time. Based on all this, I give the patient is sedation holiday. She woke up very nicely and she was able to follow commands and answers questions appropriately. Weaning parameters were checked and the patient had a tidal volume of 510 with a vital capacity of 780 within this of 27 and the rapid shallow breathing index of 34. She was given a CPAP trial and following that the patient was extubated to a nasal cannula pH is tolerated extubation without any major difficulties. At this point in time, the patient is extubated, she is following commands and answering questions appropriately. Family is at the bedside. On 12/23/2017, the patient remains extubated. She is postop day #3 following a right colectomy, transverse colectomy and ileostomy and she is postop day #12 following her coronary artery bypass surgery. I was able to wean the patient off the mechanical ventilator and she extubated very nicely without having any major difficulties and currently is on 2 L of oxygen by nasal cannula. Her chest x-ray continues to show a large left-sided pleural effusion. Earlier this morning he was given 40 mg of IV Lasix which improved her urine function and output and the patient is producing more than 50 mL of urine output on hourly basis. She is nothing by mouth. NG tube is in place. Her CVP remains somewhere between 11 and 18. She is producing up to 50 mL of urine output on hourly basis. Rule out able to apply wound VAC to her abdominal wall wound and the open incisions are well covered and she is producing approximately 600 mL of material from the wound VAC system was inserted yesterday. Sternum is stable clean and intact. She is weak and a bit lethargic, slightly worse compared to yesterday and this is probably attributed to her inability to fall asleep throughout the night. No active pain. She is weak. She denies having any specific complaints for now. TPN was started as the patient's pre-albumin and albumin and total protein is extremely low. Serum bicarb is gradually improving is up to 19. On 12/24/2017, the patient is awake and alert and she is postop day #4 from her bowel surgery and postop day #13 from her cardiac surgery. She is awake and alert and she is communicating. She is on 2 L about 2 by nasal cannula. No respiratory distress. She is diuresing and the chest x-ray shows improvement in the volume status and the patient was started on IV Lasix today. She was already producing approximately 40-50 mL an hour of urine output. NG tube is in place and output has been 100 mL over the past 24 hours. The patient has approximately 120cc of output and had ileostomy site. The wound VAC is also in place and the output has been not considerably high. She is doing well. Cardiac rhythm remains in normal sinus mechanism. The patient has TPN for nutritional support. Hemodynamically stable. No hypotension. No pressors requirements. No other significant events overnight. No altered mentation. On 12/25/2017, patient is postoperative day #5 from her bowel surgery, and postoperative day #14 from cardiac surgery. Patient is doing well, she is on 2 L nasal cannula, in no form of distress. Sitting at a bedside chair, asymptomatic. Chest x-ray is suggestive of a good sized left-sided pleural effusion, hence I recommended ultrasound of the chest to be done, may require left-sided thoracentesis. The ultrasound did show good sized left-sided pleural effusion, and I think I will recommend thoracentesis in the next 24 hours. All labs were reviewed including his CBC and renal profile. Clinically the patient is actually doing well. On 12/26/2017, patient is postoperative day #6 from her bowel surgery and postoperative day #15 from cardiac surgery. Remains on 2 L nasal cannula, in no distress, chest x-ray is showing improvement in her bilateral pleural effusions especially the left one. I was planning thoracentesis done the patient today, but considering the patient has excellent urine output, and the pleural effusion seems to be better, will cancel plans for left-sided thoracentesis today. Labs were reviewed, relatively normal electrolytes, and a relatively normal CBC except for hemoglobin of 7.8 which seems to be holding. Patient is asymptomatic, denies any shortness of breath no cough no wheezing no chest pain. No nausea no vomiting no abdominal pain. Her nasogastric tube was pulled out today. We'll start on clear liquids. Reevaluated today on 12/27/2017, patient is postoperative day #7. From her bowel surgery and postoperative day #16 from cardiac surgery. On 2 L nasal cannula, asymptomatic, chest x-ray is basically about the same, small left- sided pleural effusion is noted. Patient is asymptomatic. Labs were reviewed WBC count is 18.7 hemoglobin 8.3 basic metabolic profile is normal renal profile is normal.he patient is seen again 12/29/2017 in follow-up on the selective care unit. She is currently sitting up in a chair at the bedside. She is doing better today as compared to yesterday. She denies any worsening shortness of breath, cough or congestion. Today's chest x-ray shows small to moderate left and small right pleural effusions with adjacent atelectasis with some improvement in the left. She continues to work well with the incentive spirometer. She is maintaining good O2 saturations in the upper 90s on room air. White count 20.1. Hemoglobin 7.5. Creatinine 0.71. The patient is seen again today 12/30/2017 in follow-up on the selective care unit. She is currently resting quite comfortable in bed. She denies any worsening shortness of breath, cough or congestion. She is working well with the incentive spirometer. Currently maintaining good O2 saturations in the 90s on room air. She's afebrile. White count 20.7. Hemoglobin 7.3. Creatinine 0.70. Today's chest x-ray reveals moderate left pleural effusion with adjacent atelectasis. There is some improvement in the right pleural effusion. Reevaluated today on 12/31/2017, patient seems to be quite comfortable, laying in bed, on room air, in no form of distress. Asymptomatic, no cough no wheezing no shortness of breath. He is to have leukocytosis, she also has thrombocytosis , but no evidence of clear-cut infection. CT of the abdomen and pelvis were nondiagnostic. Chest x-ray continues to show small left-sided pleural effusion , not large enough to consider thoracentesis at this point. Not to mention the patient is basically asymptomatic, and she has no active pulmonary symptoms whatsoever. Basic metabolic profile is normal, renal profile is normal. Reevaluated today on 01/01/2018, patient is basically about the same. Her chest x -ray was reviewed, effusion seems to be smaller. WBC count is 16.8 hemoglobin is 7.3 basic metabolic profile is normal. Patient is relatively asymptomatic except he seemed generally weak and will need most likely a long-term of rehab process. Objective - Vital Signs Vital signs: Vital Signs Temp 98.0 F 01/01/18 08:30 Pulse 78 01/01/18 08:30 Resp 16 01/01/18 08:30 BP 136/69 01/01/18 08:30 Pulse Ox 93 L 01/01/18 08:30 Intake & Output 12/31/17 01/01/18 01/01/18 18:59 06:59 18:59 Intake Total 582 265 450 Balance 582 265 450 Weight 90.322 kg Intake: IV 10 Invasive Line 1 10 Oral 582 265 440 Other: Voiding Method Incontinent Incontinent # Voids 1 ABP, PAP, CO, CI - Last Documented Arterial Blood Pressure 159/93 Pulmonary Artery Pressure 4/4 Cardiac Output 4.5 Cardiac Index 2.5 - Exam Physical Exam: Revealed a 72-year-old female in no distress. Head: Atraumatic, normocephalic. On 2 L nasal cannula HEENT:[Neck is supple.] [No neck masses.] [No thyromegaly.] [No JVD.] Chest: [Diminished breath sounds at the bases, no crackles or rhonchi or wheezes..] Cardiac Exam: [Normal S1 and S2, no S3 gallop, no murmur.] Abdomen: [Soft, nontender, no megaly, no rebound, no guarding, hypoactive bowel sounds, right lower quadrant ileostomy noted with dark brown liquid drainage. Wound VAC and ileostomy noted. Extremities: [No clubbing, 1+ bipedal edema, no cyanosis.] Neurological Exam: [No focal neurologic deficit.] Psychiatric: Normal mood affect and mental status examination. - Labs CBC & Chem 7: 01/01/18 05:50 01/01/18 05:50 Labs: Abnormal Lab Results - Last 24 Hours (Table) 12/31/17 12/31/17 01/01/18 Range/Units 11:31 21:27 02:08 WBC (3.8-10.6) k/uL RBC (3.80-5.40) m/uL Hgb (11.4-16.0) gm/dL Hct (34.0-46.0) % Plt Count (150-450) k/uL Neutrophils # (1.3-7.7) k/uL Sodium (137-145) mmol/L POC Glucose (mg/dL) 143 H 123 H 105 H (75-99) mg/dL Calcium (8.4-10.2) mg/dL Alkaline Phosphatase (38-126) U/L Total Protein (6.3-8.2) g/dL Albumin (3.5-5.0) g/dL 01/01/18 01/01/18 Range/Units 05:50 05:50 WBC 16.8 H (3.8-10.6) k/uL RBC 2.74 L (3.80-5.40) m/uL Hgb 7.3 L (11.4-16.0) gm/dL Hct 23.5 L (34.0-46.0) % Plt Count 764 H (150-450) k/uL Neutrophils # 13.8 H (1.3-7.7) k/uL Sodium 134 L (137-145) mmol/L POC Glucose (mg/dL) (75-99) mg/dL Calcium 8.2 L (8.4-10.2) mg/dL Alkaline Phosphatase 307 H (38-126) U/L Total Protein 4.7 L (6.3-8.2) g/dL Albumin 2.0 L (3.5-5.0) g/dL Assessment and Plan Assessment: #1. Multivessel coronary artery disease, involving left main coronary artery. Status post bypass grafting and surgery was done 12/11/2017 and the patient is postop day #21 #2. Acute perforated viscus with necrosis of the transverse and right colon and the patient is status post right colectomy, transverse colectomy and takedown of splenic flexure with diabetic ileostomy. Postoperative day #11 #3. Acute hypoxic respiratory failure secondary to above. Extubated to a 2 L of oxygen by nasal cannula and the patient has a small left-sided pleural effusion, no plans to do thoracentesis . #4. Acute hypotension, resolved #5. Atrial fibrillation, and expected outcome of surgery , back to sinus #6. Peripheral vascular disease #7. History of nicotine dependence, currently in remission, quit 10 years ago, carries [id number] smoking history #8. Hypothyroidism #9. Diabetes mellitus type 2 #10. Chronic low back pain #11. Depression #12 obesity with a BMI of 34.3 #13 leukocytosis #14 anemia and expected outcome of surgery, #15 hyperlipidemia #16 leukocytosis, but no clear-cut evidence of infection #17 non-anion gap metabolic acidosis, resolved #18 left-sided pleural effusion improving, no need for thoracentesis. #19 severe hypoproteinemia and hyperlipidemia initiated oral feeding. Recommendation: Continue present supportive care measures, rehab referral hopefully in the next 24-48 hours Time with Patient: Less than 30
[2018-01-01 11:54] LABS: Glucose,Whole Blood 138 mg/dL (75-99)
[2018-01-01] MEDS: ANIDULAFUNGIN 100 MG in SODIUM CHLORIDE 0.9% 100 ML IVPB SCH (12:10)
[2018-01-01] MEDS: amLODIPine 5 MG TAB PO SCH (12:14)
[2018-01-01] MEDS ORDERED: FUROSEMIDE 10 MG/ML 2 ML VIAL IV SCH (16:00)
[2018-01-01 17:05] LABS: Glucose,Whole Blood 104 mg/dL (75-99)
[2018-01-01] MEDS: FUROSEMIDE 10 MG/ML 4 ML VIAL IV SCH ×2 (17:15→23:57)
--- NOTE | 2018-01-01 17:36 | P.PN ---
Subjective Progress Note Date: 01/01/18 The patient is a 72-year-old female status post exploratory laparotomy including colectomy with ostomy creation. She is sitting up in bed. No abdominal pain. She is tolerating diet. White blood cell count has improved. Objective - Vital Signs Vital signs: Vital Signs Temp 97.7 F 01/01/18 16:00 Pulse 76 01/01/18 16:00 Resp 16 01/01/18 16:00 BP 111/77 01/01/18 16:00 Pulse Ox 95 01/01/18 16:00 Intake & Output 12/31/17 01/01/18 01/01/18 18:59 06:59 18:59 Intake Total 582 265 936 Output Total 475 Balance 582 265 461 Weight 90.322 kg Intake: IV 20 Invasive Line 1 20 Oral 582 265 916 Output: Urine 450 Post Void Residual 0 Stool 25 Other: Voiding Method Incontinent Incontinent Incontinent # Voids 1 1 ABP, PAP, CO, CI - Last Documented Arterial Blood Pressure 159/93 Pulmonary Artery Pressure 4/4 Cardiac Output 4.5 Cardiac Index 2.5 - Exam GENERAL: Well developed and in no acute distress. HEENT: No sclera icterus. Extraocular movements grossly intact. Moist buccal mucosa. Head is atraumatic, normocephalic. Hears conversational speech. No nasal drainage. NECK: Supple without lymphadenopathy. CHEST: Non-labored respirations and equal bilateral excursions. CARDIOVASCULAR: Regular rate. Regular rhythm. Palpable 2+ radial pulses. Cardiac brace present. ABDOMEN: Soft, nontender. Ostomy pink pain and functioning. MUSCULOSKELETAL: Clubbing cyanosis or edema NEUROLOGIC: No focal or lateralizing signs. Cranial nerves II-12 grossly intact PSYCH: Appropriate affect. Alert and oriented to person, place and time. SKIN: Good skin turgor. Well perfused. Ecchymoses bilateral upper arms pre- existing. - Labs CBC & Chem 7: 01/01/18 05:50 01/01/18 05:50 Labs: Abnormal Lab Results - Last 24 Hours (Table) 12/31/17 01/01/18 01/01/18 Range/Units 21:27 02:08 05:50 WBC 16.8 H (3.8-10.6) k/uL RBC 2.74 L (3.80-5.40) m/uL Hgb 7.3 L (11.4-16.0) gm/dL Hct 23.5 L (34.0-46.0) % Plt Count 764 H (150-450) k/uL Neutrophils # 13.8 H (1.3-7.7) k/uL Sodium (137-145) mmol/L POC Glucose (mg/dL) 123 H 105 H (75-99) mg/dL Calcium (8.4-10.2) mg/dL Alkaline Phosphatase (38-126) U/L Total Protein (6.3-8.2) g/dL Albumin (3.5-5.0) g/dL 01/01/18 01/01/18 01/01/18 Range/Units 05:50 11:49 16:13 WBC (3.8-10.6) k/uL RBC (3.80-5.40) m/uL Hgb (11.4-16.0) gm/dL Hct (34.0-46.0) % Plt Count (150-450) k/uL Neutrophils # (1.3-7.7) k/uL Sodium 134 L (137-145) mmol/L POC Glucose (mg/dL) 138 H 104 H (75-99) mg/dL Calcium 8.2 L (8.4-10.2) mg/dL Alkaline Phosphatase 307 H (38-126) U/L Total Protein 4.7 L (6.3-8.2) g/dL Albumin 2.0 L (3.5-5.0) g/dL Assessment and Plan (1) Ileostomy in place Current Visit: Yes Status: Acute Code(s): Z93.2 - ILEOSTOMY STATUS SNOMED Code(s): 274062017 (2) Intestinal necrosis Current Visit: Yes Status: Acute Code(s): K55.069 - ACUTE INFARCTION OF INTESTINE, PART AND EXTENT UNSPECIFIED SNOMED Code(s): 50150069 (3) Leukocytosis Current Visit: Yes Status: Acute Code(s): D72.829 - ELEVATED WHITE BLOOD CELL COUNT, UNSPECIFIED SNOMED Code(s): 072032077 (4) Coronary artery disease involving left main coronary artery Current Visit: Yes Status: Chronic Code(s): I25.10 - ATHSCL HEART DISEASE OF [place] CORONARY ARTERY W/O ANG PCTRS SNOMED Code(s): 984259972 Plan: 1. No acute signs of infection. White blood cell count has improved. 2. Follow-up CBC tomorrow.
[2018-01-01 20:56] LABS: Glucose,Whole Blood 167 mg/dL (75-99)
--- NOTE | 2018-01-01 21:23 | PN ---
PROGRESS NOTE DATE OF SERVICE: January 01, 2018. PRESENTING COMPLAINT: Tired. INTERVAL HISTORY: Patient is status post CABG followed by ischemic bowel and bowel perforation for which patient has resulting ileostomy and wound VAC. Today, the patient continues to feel weak and eating a little bit. Sitting up on a chair. The patient has been having stool output from the ileostomy. No chest pain. Some edema is present. Has family at the bedside. REVIEW OF SYSTEMS: Done for constitutional, cardiovascular, GI, pulmonary and findings as above. CURRENT MEDICATIONS: Reviewed that include DuoNeb, Amiodarone, , IV Lasix 20 mg every 8 hours, IV meropenem, OxyContin. PHYSICAL EXAMINATION: VITAL SIGNS: Temperature 98, pulse 80, respiration 16, blood pressure 136/69, pulse ox 93 percent on room air. GENERAL APPEARANCE: Sitting up in a chair, awake. Eyes: Pupils equal. Conjunctivae normal. HEENT: External appearance of nose and ears normal. Oral cavity normal. NECK JVD unable to assess. Mass not palpable. RESPIRATORY: Effort increased. LUNGS: Decreased breath sounds. CARDIOVASCULAR: 1st and 2nd sounds normal. Some edema present. ABDOMEN: Soft. Some tenderness. Stool in the ileostomy bag. Wound VAC in place. PSYCHIATRY: Alert, oriented x3. Mood and affect normal. INVESTIGATIONS: White count 16.8, hemoglobin 7.3, platelets 764. Potassium 3.5. BUN and creatinine is normal. Chest x-ray shows small pleural effusion. ASSESSMENT: 1. Coronary artery disease status post coronary artery bypass on December 11, 2017. 2. Acute ischemic bowel with perforation and right transverse colectomy and takedown of the splenic flexure with resultant ileostomy. 3. Wound VAC. 4. Acute hypoxic respiratory failure status post ventilator support. 5. Hypotensive and septic shock, now recovered. 6. Paroxysmal atrial fibrillation currently remains in sinus rhythm. 7. Peripheral artery disease. 8. Hypothyroid. 9. Diabetes mellitus type 2. 10.Chronic low back pain from arthritis. 11.Depression not otherwise specified. 12.Obesity; BMI 34.3. 13.Acute blood loss anemia expected from surgery and hospital acquired from blood loss from blood draws. 14.Hyperlipidemia. 15.Hypoalbuminemia as an acute phase reactant. 16.Bilateral pleural effusion, to be managed medically. 17.Essential hypertension. 18.Elevated white count has started to come down. PLAN: Discussed with Dr. Lancaster from ID. Patient's white count has started to come down. I had requested to see the patient for Dr. Mccartney who was covering for the holidays. The patient broad-spectrum antibiotics to continue. Physical therapy is on the case with the patient. Care was discussed with the patient. MMODL / IJN: [id number] /
[2018-01-01] MEDS: NYSTATIN 100,000 UNIT/ML SUSP 500,000 UNIT/5 ML CUP PO SCH (23:56)
[2018-01-01] MEDS: metroNIDAZOLE 500 MG TAB PO SCH (23:56)
[2018-01-02 02:18] LABS: Glucose,Whole Blood 106 mg/dL (75-99)
[2018-01-02] MEDS: INSULIN ASPART 100 UNIT/ML 1 ML 10 ML VIAL SQ SCH ×5 (02:57→21:20)
[2018-01-02] MEDS: MEROPENEM 1 GM in SODIUM CHLORIDE 0.9% 100 ML IVPB SCH ×3 (03:51→20:48)
[2018-01-02 06:04] LABS: Glucose,Whole Blood 98 mg/dL (75-99)
[2018-01-02] MEDS: LEVOTHYROXINE 75 MCG TAB PO SCH (06:18)
[2018-01-02] MEDS: PANTOPRAZOLE 40 MG TABLET PO SCH (06:18)
[2018-01-02] MEDS: ACETAMINOPHEN TAB 325 MG TAB PO PRN (07:14)
[2018-01-02 07:27] LABS: Basophils # (A) 0.1 k/uL (0-0.2); Basophils % (A) 0 %; Eosinophils # (A) 0.6 k/uL (0-0.7); Eosinophils % (A) 3 %; HCT 26.2 % (34.0-46.0); HGB 7.9 gm/dL (11.4-16.0); Hypochromasia Moderate; Lymphocytes # (A) 1.6 k/uL (1.0-4.8); Lymphocytes % (A) 8 %; MCH 26.1 pg (25.0-35.0); MCHC 30.3 g/dL (31.0-37.0); MCV 86.1 fL (80.0-100.0); Mean Platelet Volume 6.9; Monocytes # (A) 1.1 k/uL (0-1.0); Monocytes % (A) 6 %; Neutrophils # (A) 16.6 k/uL (1.3-7.7); Neutrophils % (A) 82 %; Poikilocytosis Slight; RBC 3.05 m/uL (3.80-5.40); RDW 15.7 % (11.5-15.5); WBC 20.3 k/uL (3.8-10.6)
[2018-01-02 07:38] LABS: ALT 27 U/L (9-52); AST 23 U/L (14-36); Albumin 2.2 g/dL (3.5-5.0); Alkaline Phosphatase 330 U/L (38-126); Anion Gap 7 mmol/L; Blood Urea Nitrogen 12 mg/dL (7-17); Calcium 8.5 mg/dL (8.4-10.2); Carbon Dioxide 30 mmol/L (22-30); Chloride 97 mmol/L (98-107); Glucose 85 mg/dL (74-99); Magnesium 1.9 mg/dL (1.6-2.3); Phosphorus 3.1 mg/dL (2.5-4.5); Potassium 3.8 mmol/L (3.5-5.1); Sodium 134 mmol/L (137-145); Total Bilirubin 0.6 mg/dL (0.2-1.3); Total Protein 5.2 g/dL (6.3-8.2)
[2018-01-02 07:47] LABS: Platelet Count 840 k/uL (150-450)
--- NOTE | 2018-01-02 08:08 | XR ---
EXAMINATION TYPE: XR chest 1V portable DATE OF EXAM: 01/02/2018 COMPARISON: 01/01/2018 INDICATION: Post cardiac surgery TECHNIQUE: Single frontal view of the chest is obtained. FINDINGS: The heart size is normal. The pulmonary vasculature is normal. Mild infiltrate is at the left base. Minimal left pleural effusion is present. No significant interva l changes evident. Sternotomy wires are present from previous cardiac surgery. IMPRESSION: 1. Stable left lower lobe infiltrate with a small left pleural effusion. Continued follow-up is recom mended
--- NOTE | 2018-01-02 08:11 | PN ---
PROGRESS NOTE DATE OF SERVICE: 01/01/2018. REASON FOR FOLLOWUP: Leukocytosis. INTERVAL HISTORY: I was asked to re-evaluate the patient regarding her elevated white count in this patient who has been in the hospital since 12/08/2017, initially presented with an abnormal stress test. Followup heart catheterization shows significant disease, left main. The patient did underwent urgent coronary artery bypass grafting on the . Clinical course subsequently was complicated by development of an ischemic colitis for which the patient was taken to the OR on 12/21/2017, status post laparotomy resection of the ischemic bowel and creation of ileostomy. Since then the patient has been slowly recovering from the illnesses. The patient has been afebrile for the last 2 weeks. The last temperature has been 100.3 on 12/21/2017. However, the patient seemed to have a problem with the elevated white count. The patient white count has been as high as 31.4 on December 21. Since then, it did show a gradual downward trend, however, has been around 20.1 to 20.7 as well as 21.5 on 12/29 to 12/31. The patient did have blood cultures obtained. Last one on 12/13. No recent cultures. She did have a right IJ that has been discontinued. UA has been negative, though admission UA did show E. coli. The patient is currently on broad-spectrum antibiotic in the form of meropenem 2 g q.12 along with Micafungin. The patient's main symptom has been feeling weak and tired and no energy. The patient denies having any chest pain or shortness of breath today. She has mild cough not bringing up any sputum. Mild abdominal pain but no worsening. No nausea. No vomiting. REVIEW OF SYSTEMS: Positive points have been mentioned in HPI. Rest of systems have been negative. Past medical and surgical history revealed no change. Medication reviewed. PHYSICAL EXAMINATION: Her blood pressure is 111/77 with a pulse of 72, temperature 97.7. She is 95% on room air. General description is an elderly female up in bed in no distress. No tachypnea or accessory muscles of respiration use. HEENT: Shows slight pallor. No scleral icterus. Oral mucosal membranes are moist. NECK: Trachea central. No thyromegaly. LUNGS: Unlabored breathing with decreased breath sounds at bases. No wheeze. Heart S1, S2. Regular rate and rhythm. Abdomen soft, no tenderness. Extremities: Some trace edema of the feet. LABS: Hemoglobin 7.8, white count 16.8, temperature 101.5 yesterday. BUN of 12, creatinine 0.59 normal. Electrolytes have been normal. UA done on December 30 has been negative. Stool for C difficile 12/15 and 12/16 has been negative. DIAGNOSTIC IMPRESSION AND PLAN: Patient with leukocytosis in this patient who did have a complicated hospital course. The patient who is status post urgent coronary artery bypass grafting with clinical course complicated by development of ischemic colitis requiring laparotomy, colectomy and diverting ileostomy. Possible multiple sources of infection with to be abdominal. However, the patient did have an abdominal pelvis CT completed on December 30 which was considered to be limited exam, moderate abdominal pelvic ascites remains with abnormal 5 cm rounded masslike thickening on the left lateral gastric fundus. UA was negative and the has been discontinued. At this time, the patient antibiotic will be adjusted to meropenem 1 g q.8 hours as the patient does have a normal creatinine clearance and continue with Micafungin. Will add oral Flagyl and nystatin swish and swallow and follow her white count closely. If any new fever or any further worsening of the white count, an abdominal pelvis CT may be repeated to follow up on the abnormality seen around the gastric fundus to make sure not developing any abscess in that location. Continue supportive care. MMODL / IJN: [id number] /
--- NOTE | 2018-01-02 08:39 | PN ---
PROGRESS NOTE Mrs. Sellers is a 72-year-old female who is status post coronary artery bypass surgery and abdominal surgery. The patient is status post right colectomy. The patient is currently sitting in a chair without any acute distress. Patient denies any chest pain or shortness of breath. Denies any a significant abdominal pain. She remains afebrile. PHYSICAL EXAMINATION: Physical examination reveals the patient is afebrile. Blood pressure is 122/63 mmHg, oxygen saturation 95%. First and second heart sounds are normal. Lung examination reveals bilateral diminished air entry. Abdomen is soft. The patient's hemoglobin is 7.3. Electrolytes are normal. Creatinine is 0.59. ASSESSMENT AND PLAN: Status post coronary artery bypass surgery. The patient remains stable. Continue the current medications. MMODL / IJN: [id number] /
[2018-01-02] MEDS: IPRATROPIUM-ALBUTEROL 3 ML NEB INHALATION SCH ×5 (08:41→20:18)
--- NOTE | 2018-01-02 09:18 | P.PN ---
Subjective Progress Note Date: 01/02/18 Principal diagnosis: Coronary artery disease with critical left main disease. Preserved left ventricular function. Previous medical history of hypertension, hyperlipidemia , diabetes mellitus with preoperative hemoglobin A1c 8.1%, hypothyroid, chest granulomatous disease, peripheral vascular disease status post right fem-pop bypass, previous tobacco dependence with preoperative FEV1 109% of predicted in November 2016, recent fall in June 2017 with torn right rotator cuff, questionable DVT with previous Coumadin use greater than 2 years ago, syncopal episodes, history of paroxysmal atrial fibrillation, chronic low back pain, obesity, depression and preoperative E. coli urinary tract infection. POD #22 urgent quadruple coronary artery bypass grafting using the left internal mammary artery sequentially to the diagonal coronary artery and to the left anterior descending coronary artery, a reverse greater saphenous vein graft from the aorta to the first obtuse marginal coronary artery, a reverse greater saphenous vein graft from the aorta to the third obtuse marginal coronary artery. Bilateral pulmonary vein isolation using the AtriCure radiofrequency clamp. Exclusion of the left atrial appendage using a 35 mm AtriClip. Intraoperative transesophageal echocardiogram and epi-aortic scanning. POD #12 right colectomy, transverse colectomy, takedown splenic flexure, ileostomy performed by Dr. Montoya Postoperative elevation in transaminases, an unexpected outcome, resolving. Leukocytosis, present preoperatively. Postoperative diarrhea, an unexpected outcome. Postoperative normochromic, normocytic anemia, an expected outcome of surgery secondary to cardiopulmonary bypass and hemodilution. Postoperative urinary retention, an unexpected outcome. Postoperative pneumoperitoneum, an unexpected outcome. Necrosis of the transverse colon, right colon and unexpected outcome. Sepsis, septic shock, an unexpected outcome. Postoperative prolonged mechanical ventilation, needed to be reintubated for second surgery, an unexpected outcome. Postoperative left-sided pleural effusion, an unexpected outcome of surgery. Resolving. The patient is currently sitting up to the bedside chair. She is in no acute distress. Denies any complaints of pain or shortness of breath at this time. She is alert and oriented 3. Wound VAC dressing to her abdomen is being changed this time by the wound ostomy nurse. Ileostomy care is being completed this time by the wound ostomy nurse. She is tolerating oral intake without complaints of any nausea. He remains having generalized weakness, working with physical therapy. Her WBC count is 21.5 today, hemoglobin 8.0, and platelets 808. She remains afebrile and is currently on meropenem and Anidulafungin managed by infectious disease. She remains afebrile, her lab results today are showing a WBC count of 20.3, hemoglobin 7.9, platelet count of 840. He remains on IV antibiotic treatments with meropenem, and Eraxis managed by infectious disease. She was also started on Flagyl 500 mg by mouth 3 times a day. Objective - Vital Signs Vital signs: Vital Signs Temp 97.1 F L 01/02/18 03:52 Pulse 69 01/02/18 04:00 Resp 16 01/02/18 04:00 BP 100/57 01/02/18 03:52 Pulse Ox 94 L 01/02/18 03:52 Intake & Output 01/01/18 01/02/18 01/02/18 18:59 06:59 18:59 Intake Total 1324 30 90 Output Total 500 Balance 824 30 90 Weight 91.2 kg Intake: IV 30 30 Invasive Line 1 30 30 Oral 1294 90 Output: Urine 450 Post Void Residual 0 Stool 50 Other: Voiding Method Incontinent Incontinent # Voids 1 ABP, PAP, CO, CI - Last Documented Arterial Blood Pressure 159/93 Pulmonary Artery Pressure 4/4 Cardiac Output 4.5 Cardiac Index 2.5 - Constitutional General appearance: Present: cooperative, no acute distress, obese - Respiratory Details: Lung sounds are essentially clear to bilateral upper lobes, few scattered crackles throughout bilateral bases. Respirations are symmetrical and nonlabored. Oxygen saturation are 94% on room air. She is achieving 2997-0167 mL on her incentive spirometry. - Cardiovascular Details: Regular rhythm and rate. S1 and S2 present, negative for S3, gallop or murmur. Sternum is stable. Remote telemetry showing normal sinus rhythm heart rate 71. Knee-high KURT hose and sequential compression devices in place to bilateral lower extremities. +1 to +2 pitting edema to her bilateral lower extremities. Right upper basilic vein midline catheter present and patent. Heart hugger is in place and she is demonstrating appropriate use. - Gastrointestinal Gastrointestinal Comment(s): Abdomen is soft, nontender and nondistended. Active bowel sounds all 4 abdominal quadrants. Tolerating oral intake. Right lower quadrant ileostomy present with brown stool present to the ileostomy bag. Ileostomy care and progress. - Genitourinary Genitourinary Comment(s): Voiding clear yellow urine. Episodes of incontinence. - Integumentary Integumentary Comment(s): Skin is warm and dry. No clubbing or cyanosis present. Midline sternal incision clean dry and approximated. No drainage or redness present. Left lower extremity EVH sites clean dry and approximated. No drainage or redness present. Midline abdominal incision clean and dry with andrei intact to her mid abdominal incision. 2 open areas on her abdominal incision with wound VAC care being completed at this time. Granulating tissue noted. - Neurologic Neurologic: Present: CNII-XII intact - Musculoskeletal Musculoskeletal: Present: generalized weakness, strength equal bilaterally - Psychiatric Psychiatric: Present: A&O x's 3, appropriate affect, intact judgment & insight - Labs CBC & Chem 7: 01/02/18 06:53 01/02/18 07:08 Labs: Abnormal Lab Results - Last 24 Hours (Table) 01/01/18 01/01/18 01/01/18 Range/Units 11:49 16:13 20:55 WBC (3.8-10.6) k/uL RBC (3.80-5.40) m/uL Hgb (11.4-16.0) gm/dL Hct (34.0-46.0) % MCHC (31.0-37.0) g/dL RDW (11.5-15.5) % Plt Count (150-450) k/uL Neutrophils # (1.3-7.7) k/uL Monocytes # (0-1.0) k/uL Sodium (137-145) mmol/L Chloride (98-107) mmol/L POC Glucose (mg/dL) 138 H 104 H 167 H (75-99) mg/dL Alkaline Phosphatase (38-126) U/L Total Protein (6.3-8.2) g/dL Albumin (3.5-5.0) g/dL 01/02/18 01/02/18 01/02/18 Range/Units 02:16 06:53 07:08 WBC 20.3 H (3.8-10.6) k/uL RBC 3.05 L (3.80-5.40) m/uL Hgb 7.9 L (11.4-16.0) gm/dL Hct 26.2 L (34.0-46.0) % MCHC 30.3 L (31.0-37.0) g/dL RDW 15.7 H (11.5-15.5) % Plt Count 840 H* (150-450) k/uL Neutrophils # 16.6 H (1.3-7.7) k/uL Monocytes # 1.1 H (0-1.0) k/uL Sodium 134 L (137-145) mmol/L Chloride 97 L (98-107) mmol/L POC Glucose (mg/dL) 106 H (75-99) mg/dL Alkaline Phosphatase 330 H (38-126) U/L Total Protein 5.2 L (6.3-8.2) g/dL Albumin 2.2 L (3.5-5.0) g/dL - Imaging and Cardiology Chest x-ray: report reviewed, image reviewed Assessment and Plan (1) Diarrhea in adult patient Current Visit: Yes Status: Acute Code(s): R19.7 - DIARRHEA, UNSPECIFIED SNOMED Code(s): 18322279 (2) Chronic low back pain Current Visit: Yes Status: Chronic Code(s): M54.5 - LOW BACK PAIN; G89.29 - OTHER CHRONIC PAIN SNOMED Code(s): 290489222 (3) Coronary artery disease involving left main coronary artery Current Visit: Yes Status: Chronic Code(s): I25.10 - ATHSCL HEART DISEASE OF [place] CORONARY ARTERY W/O ANG PCTRS SNOMED Code(s): 247779628 (4) Diabetes Current Visit: Yes Status: Chronic Code(s): E11.9 - TYPE 2 DIABETES MELLITUS WITHOUT COMPLICATIONS SNOMED Code(s): 01384944 (5) Family history of heart disease Current Visit: Yes Status: Chronic Code(s): Z82.49 - FAMILY HX OF I[place]HE[place] HEART DIS AND OTH DIS OF THE CIRC SYS SNOMED Code(s): 148872785 (6) Hyperlipidemia Current Visit: Yes Status: Chronic Code(s): E78.5 - HYPERLIPIDEMIA, UNSPECIFIED SNOMED Code(s): 78274653 (7) Hypertension Current Visit: Yes Status: Chronic Code(s): I10 - ESSENTIAL (PRIMARY) HYPERTENSION SNOMED Code(s): 88487818 (8) Hypothyroid Current Visit: Yes Status: Chronic Code(s): E03.9 - HYPOTHYROIDISM, UNSPECIFIED SNOMED Code(s): 16448880 (9) Peripheral vascular disease Current Visit: Yes Status: Chronic Code(s): I73.9 - PERIPHERAL VASCULAR DISEASE, UNSPECIFIED SNOMED Code(s): 349931993 (10) History of DVT (deep vein thrombosis) Current Visit: No Status: Resolved Code(s): Z86.718 - PERSONAL HISTORY OF OTHER VENOUS THROMBOSIS AND EMBOLISM SNOMED Code(s): 361998572 (11) History of atrial fibrillation Current Visit: No Status: Resolved Code(s): Z86.79 - PERSONAL HISTORY OF OTHER DISEASES OF THE CIRCULATORY SYSTEM SNOMED Code(s): 073294481 (12) Tobacco dependence in remission Current Visit: No Status: Resolved Code(s): F17.201 - NICOTINE DEPENDENCE, UNSPECIFIED, IN REMISSION SNOMED Code(s): 908087355 (13) Intestinal necrosis Current Visit: Yes Status: Acute Code(s): K55.069 - ACUTE INFARCTION OF INTESTINE, PART AND EXTENT UNSPECIFIED SNOMED Code(s): 37356952 (14) Ileostomy in place Current Visit: Yes Status: Acute Code(s): Z93.2 - ILEOSTOMY STATUS SNOMED Code(s): 969826221 (15) Ileostomy care Current Visit: Yes Status: Acute Code(s): Z43.2 - ENCOUNTER FOR ATTENTION TO ILEOSTOMY SNOMED Code(s): 583916257 (16) Ischemic colitis Current Visit: Yes Status: Acute Code(s): K55.9 - VASCULAR DISORDER OF INTESTINE, UNSPECIFIED SNOMED Code(s): 18263224 Plan: 1. Continue low dose aspirin, statin, plavix, Norvasc, hydralazine and beta sheree. Will increase her beta sheree as tolerated. 2. Continue Lasix 20 mg IV 3 times a day. Replace past potassium per protocol. 3. Continue meropenem, Flagyl and Eraxis managed by Dr. Mccartney from infectious disease. 4. Continue amiodarone for A. fib prophylaxis. Currently on amiodarone 200 mg by mouth daily. 5. Encourage use of her incentive spirometry every hour while awake. 6. Monitor daily labs, chest x-rays. Pre-albumin pending. 7. GI/DVT prophylaxis. 8. Pain control with current medication regimen. 9. Bronchodilators management per pulmonology. 10. Insulin/diabetic management per primary care service. 11. Wound VAC management per general surgery recommendations to her abdominal incisions. VAC dressing and ileostomy dressing changed this morning by the wound ostomy nurse. 12. Continue bladder scans after each void or every 6 hours. If greater than 300 mL residual please straight cath. 13. Increase activity as tolerated, physical therapy/occupational therapy and cardiac rehab following. 14. Discharge planning in place. We will need subacute rehab or long-term acute care upon discharge. 15. More recommendations to follow based on patient's clinical course. Time with Patient: Greater than 30
[2018-01-02] MEDS: oxyCODONE ER 20 MG TAB.ER.12H PO SCH ×2 (09:53→15:40)
[2018-01-02] MEDS: metroNIDAZOLE 500 MG TAB PO SCH ×3 (09:54→21:20)
[2018-01-02] MEDS: METOPROLOL TARTRATE 25 MG TAB PO SCH ×2 (09:54→21:20)
[2018-01-02] MEDS: DULoxetine HCL 60 MG CAPSULE.DR PO SCH (09:55)
[2018-01-02] MEDS: CLOPIDOGREL 75 MG TAB PO SCH (09:55)
[2018-01-02] MEDS: hydrALAZINE HCL 10 MG TAB PO SCH ×2 (09:55→21:20)
[2018-01-02] MEDS: AMIODARONE 200 MG TAB PO SCH (09:55)
[2018-01-02] MEDS: ATORVASTATIN 40 MG TAB PO SCH (09:55)
[2018-01-02] MEDS: NYSTATIN 100,000 UNIT/ML SUSP 500,000 UNIT/5 ML CUP PO SCH ×4 (09:56→21:20)
[2018-01-02] MEDS: ANIDULAFUNGIN 100 MG in SODIUM CHLORIDE 0.9% 100 ML IVPB SCH (09:56)
[2018-01-02] MEDS: HEPARIN SODIUM,PORCINE 5,000 UNIT/ML 1 ML VIAL SQ SCH ×3 (09:56→15:42)
[2018-01-02] MEDS: FUROSEMIDE 10 MG/ML 4 ML VIAL IV SCH ×2 (09:56→15:42)
[2018-01-02] MEDS: ASPIRIN 81 MG PO SCH (09:56)
[2018-01-02] MEDS ORDERED: POTASSIUM CHLORIDE ER 20 MEQ TAB.ER PO SCH (10:00)
[2018-01-02] MEDS ORDERED: VANCOMYCIN IV PER PHARMACY 1 EACH MISC MISCELLANE PRN (11:14)
[2018-01-02 11:18] LABS: Glucose,Whole Blood 121 mg/dL (75-99)
[2018-01-02] MEDS: ASCORBIC ACID 500 MG TAB PO SCH (11:40)
[2018-01-02] MEDS: CYANOCOBALAMIN 500 MCG TAB PO SCH (11:40)
[2018-01-02] MEDS: amLODIPine 5 MG TAB PO SCH (11:40)
[2018-01-02] MEDS ORDERED: VANCOMYCIN 1,750 MG in SODIUM CHLORIDE 0.9% 500 ML IVPB ONE (12:00)
--- NOTE | 2018-01-02 12:36 | P.PN ---
Subjective Progress Note Date: 01/02/18 Principal diagnosis: Status post coronary artery bypass grafting, status post right colectomy for acute perforated viscus and necrosis of the transverse and right colon. Mrs. Sellers is a 72-year-old white female patient of Dr. Alcala who was undergoing cardiac evaluation for clearance for her upcoming right rotator cuff repair, was found to have inferoseptal ischemia on the nuclear stress test. Cardiac catheterization showed left main disease of 60-70%, extending into the proximal circumflex, mid LAD of 70%, and 70% ostial lesion of the left circumflex, and no significant right coronary artery disease. She was recommended surgical intervention for which she is scheduled on Monday, on 12/11. Past medical history is positive for diabetes mellitus type 2, hypertension, hyperlipidemia, hypothyroidism, peripheral vascular disease status post right fem-pop bypass, previous nicotine dependence, quit smoking 10 years ago, carries [id number] smoking history, DVT with previous Coumadin use , paroxysmal atrial fibrillation, chronic back pain, obesity and depression. Patient had a spirometry PFT in November 2016 which showed FEV1 of 109%. We are seeing this patient in consultation for pulmonary management for the upcoming coronary artery bypass grafting surgery. On today's evaluation of a 12/18/2017 Carolyn is back to the intensive care unit. She is postop day #7 following her coronary artery bypass surgery. She got transferred because of an extensive liquidy/watery diarrhea which left her into a dehydrated state and causes some non-anion gap metabolic acidosis. Her bicarb level is down to 14. She had 3 additional liquidy bowel movements this morning. The patient was seen by general surgery. CAT scan of the abdomen was done raising the possibility of an underlying ischemic colitis. She was placed on accommodation Zosyn and vancomycin. No fever or chills. She also had gone into atrial fibrillation. The rate is controlled right now with metoprolol and amiodarone and the patient is also on IV heparin. She is complaining of pain throughout her chest and body mainly in the joints and she has been taken hydrocodone outpatient basis. I restarted her on [place] 5 every 6 hours for pain control pH is using incentive spirometer. She is on IV fluids and she'll be started on a bicarb drip. The patient's chest x-ray from today showed small bilateral pleural effusion and basilar atelectasis and left lung base. There is also artifact from external objects on the chest x-ray. The postoperative echocardiogram showed a preserved LV function with an ejection fraction of 50-55 %. No valvular abnormalities noted. On today's evaluation of 12/19/2017, the patient is awake and alert and sitting up on a chair. The diarrhea has subsided significantly. She only had liquidy loose bowel movement there was small amount this morning. Otherwise, the patient is was resuscitated IV fluids. The patient received a bicarb infusion yesterday and her serum bicarb normalizes and earlier this morning associated to a normal saline infusion at the rate of 75 mL an hour. Her urine output is around 20-25 mL an hour. The patient's creatinine is normal. BUN is down to 7. Vascular electrodes are all within normal limits and her bicarb level is normalized. No nausea. No vomiting. No abdominal pain. She is taking clear liquid diet. No chest pain. Chest x-ray shows some mild pulmonary vascular congestion and atelectatic changes in lung bases bilaterally. She is on room air oxygen. Sternum stable clean and intact. She has E. coli in the urine and she is on IV Zosyn. Vancomycin was discontinued. IV heparin was discontinued. Her current rhythm is sinus. On 12/20/2017 the patient developed some vague abdominal pain. This pain started approximately 4 AM in the morning. As mentioned earlier the patient is postop from coronary artery bypass surgery and she is postop day #8. The patient is currently in the intensive care unit. X-ray of the chest was done this morning and it showed free air under the diaphragm. This is consistent with pneumoperitoneum and the patient will need further investigation. Immediately the general surgeon was contacted and the patient had a CAT scan of the abdomen and it showed moderate pneumoperitoneum with site of the perforation i not identified although there was suspicion that maybe the distal stomach/duodenal area. The patient currently on IV Zosyn. No cervical leukocytosis. Urine output is dropped down to 20 mL an hour. Her white count from this morning's at 14.3. Patient be taken to the operating room for an expected laparotomy. No altered mentation. No cough or sputum production. No other complaints otherwise for now. On 12/21/2017 I'm seeing this patient for a follow-up. She is a critically ill female patient was taken to the operating room yesterday for an acute bowel perforation. The patient was found to have pneumoperitoneum and the patient was taken to the operating room and the patient underwent expiratory laparotomy and right colectomy and transverse colectomy and takedown of splenic flexure and diverticular colostomy. The patient intraoperatively was found to have necrosis of the transverse colon and the right colon. Postop, the patient was kept intubated and the patient was moved to the intensive care unit for further evaluation and management. Overnight the patient was given fluid aggressively. She was given IV albumin. She was given lactated Ringer solution and normal saline solution. She did drop her pressure and she had also to placed on pressors and she is currently on 3-4 mics of norepinephrine infusion to maintain a mean artery pressure above 65. This morning I give her another liter of lactated Ringer and nontender albumin 5% to bring her CVP above 12. Hemoglobin dropped down to 6.7. Her white count came up to 31.4 and subsequently dropped down to 23. This is expected as the patient had a bowel necrosis and intra-abdominal sepsis. Antibiotic dressings were done and the patient was placed on Merrem and Eraxis. Earlier this morning the patient was on assist-control mode of ventilation and was obvious that the patient was asynchronous and double stacking on a mechanical ventilator. This was occurring even while on 40 mics of Diprivan infusion. Based on this, necessary vent changes were done. The patient was air hungry and she was taken significantly high tidal volumes. I was able to bring the tidal volume of 600 and the rate of 18 with a FiO2 of 40% and a PEEP of 5. Chest x-ray from today showed that the patient had adequate expansion of both lungs. There is a left- sided pleural effusion and ET tube is around 3-4 cm above the al. The net fluid balance over the past 24 hours is +6 L in the urine output is adequate for now. The patient is afebrile. On 12/22/2017 I'm seeing this patient for a follow-up. Note that the patient is postop day #2 following chest was colectomy, right colectomy and ileostomy and the patient is postop day #11 following her coronary artery bypass surgery. This morning the patient was sedated with Diprivan and she was calm and comfortable. Despite being on Diprivan, the patient was easily arousable. She was maintained on assist control mode of ventilation. Throughout the night the patient was an assist-control at the rate of 20 with a tidal volume of 600 and FiO2 of 40% and PEEP of 5. Chest x-ray showing the development of a left-sided pleural effusion. ET tube is in a good location. Rest of the lungs are all in good location is. NG tube is also in place. The blood gases from this morning showed a pH of 7.42 with a pCO2 of 26 and pO2 of 100. No significant orotracheal secretions. Hemodynamically, the patient was aggressively resuscitated IV fluids. She is in a positive fluid balance in order of 6 L at least and the patient was taken off pressors and she's been off the norepinephrine infusion for now. She is producing adequate amount of urine output. She does have a component of non-anion gap metabolic acidosis with a bicarb level of 16. Renal function stable with a creatinine of 0.9. Rest of the electrolytes are all within normal limits. Her white cell count peaked at 27.5 and currently is down to 25. She remains on a broad-spectrum antibiotics including IV Merrem and Ecaris. The cardiac rhythm remains sinus. CVP is somewhat between 10 and 13. Urine output is order of 30-40 mL an hour. Angiopathy was noted. There is also minimal amount of liquidy material within the ileostomy back. Surgical wound site is open and a superior and inferior portion and the wound VAC will be applied to that area. There is no active drainage at this point in time. Based on all this, I give the patient is sedation holiday. She woke up very nicely and she was able to follow commands and answers questions appropriately. Weaning parameters were checked and the patient had a tidal volume of 510 with a vital capacity of 780 within this of 27 and the rapid shallow breathing index of 34. She was given a CPAP trial and following that the patient was extubated to a nasal cannula pH is tolerated extubation without any major difficulties. At this point in time, the patient is extubated, she is following commands and answering questions appropriately. Family is at the bedside. On 12/23/2017, the patient remains extubated. She is postop day #3 following a right colectomy, transverse colectomy and ileostomy and she is postop day #12 following her coronary artery bypass surgery. I was able to wean the patient off the mechanical ventilator and she extubated very nicely without having any major difficulties and currently is on 2 L of oxygen by nasal cannula. Her chest x-ray continues to show a large left-sided pleural effusion. Earlier this morning he was given 40 mg of IV Lasix which improved her urine function and output and the patient is producing more than 50 mL of urine output on hourly basis. She is nothing by mouth. NG tube is in place. Her CVP remains somewhere between 11 and 18. She is producing up to 50 mL of urine output on hourly basis. Rule out able to apply wound VAC to her abdominal wall wound and the open incisions are well covered and she is producing approximately 600 mL of material from the wound VAC system was inserted yesterday. Sternum is stable clean and intact. She is weak and a bit lethargic, slightly worse compared to yesterday and this is probably attributed to her inability to fall asleep throughout the night. No active pain. She is weak. She denies having any specific complaints for now. TPN was started as the patient's pre-albumin and albumin and total protein is extremely low. Serum bicarb is gradually improving is up to 19. On 12/24/2017, the patient is awake and alert and she is postop day #4 from her bowel surgery and postop day #13 from her cardiac surgery. She is awake and alert and she is communicating. She is on 2 L about 2 by nasal cannula. No respiratory distress. She is diuresing and the chest x-ray shows improvement in the volume status and the patient was started on IV Lasix today. She was already producing approximately 40-50 mL an hour of urine output. NG tube is in place and output has been 100 mL over the past 24 hours. The patient has approximately 120cc of output and had ileostomy site. The wound VAC is also in place and the output has been not considerably high. She is doing well. Cardiac rhythm remains in normal sinus mechanism. The patient has TPN for nutritional support. Hemodynamically stable. No hypotension. No pressors requirements. No other significant events overnight. No altered mentation. On 12/25/2017, patient is postoperative day #5 from her bowel surgery, and postoperative day #14 from cardiac surgery. Patient is doing well, she is on 2 L nasal cannula, in no form of distress. Sitting at a bedside chair, asymptomatic. Chest x-ray is suggestive of a good sized left-sided pleural effusion, hence I recommended ultrasound of the chest to be done, may require left-sided thoracentesis. The ultrasound did show good sized left-sided pleural effusion, and I think I will recommend thoracentesis in the next 24 hours. All labs were reviewed including his CBC and renal profile. Clinically the patient is actually doing well. On 12/26/2017, patient is postoperative day #6 from her bowel surgery and postoperative day #15 from cardiac surgery. Remains on 2 L nasal cannula, in no distress, chest x-ray is showing improvement in her bilateral pleural effusions especially the left one. I was planning thoracentesis done the patient today, but considering the patient has excellent urine output, and the pleural effusion seems to be better, will cancel plans for left-sided thoracentesis today. Labs were reviewed, relatively normal electrolytes, and a relatively normal CBC except for hemoglobin of 7.8 which seems to be holding. Patient is asymptomatic, denies any shortness of breath no cough no wheezing no chest pain. No nausea no vomiting no abdominal pain. Her nasogastric tube was pulled out today. We'll start on clear liquids. Reevaluated today on 12/27/2017, patient is postoperative day #7. From her bowel surgery and postoperative day #16 from cardiac surgery. On 2 L nasal cannula, asymptomatic, chest x-ray is basically about the same, small left- sided pleural effusion is noted. Patient is asymptomatic. Labs were reviewed WBC count is 18.7 hemoglobin 8.3 basic metabolic profile is normal renal profile is normal. The patient is seen again today 12/28/2017 in follow-up on the selective care unit. She is now status post operative day #8 from bowel surgery and postoperative day #17 for coronary artery bypass graft surgery. She is currently awake and alert in no acute distress. She is resting quite comfortably in bed. She denies any worsening shortness of breath, cough or congestion. No chills or night sweats. She is working well with the incentive spirometer. White count 15.6. Hemoglobin 7.3. Creatinine 0.71. Ostomy is functional. She is tolerating her diet. The patient is seen again 12/29/2017 in follow-up on the selective care unit. She is currently sitting up in a chair at the bedside. She is doing better today as compared to yesterday. She denies any worsening shortness of breath, cough or congestion. Today's chest x-ray shows small to moderate left and small right pleural effusions with adjacent atelectasis with some improvement in the left. She continues to work well with the incentive spirometer. She is maintaining good O2 saturations in the upper 90s on room air. White count 20.1. Hemoglobin 7.5. Creatinine 0.71. The patient is seen again today 12/30/2017 in follow-up on the selective care unit. She is currently resting quite comfortable in bed. She denies any worsening shortness of breath, cough or congestion. She is working well with the incentive spirometer. Currently maintaining good O2 saturations in the 90s on room air. She's afebrile. White count 20.7. Hemoglobin 7.3. Creatinine 0.70. Today's chest x-ray reveals moderate left pleural effusion with adjacent atelectasis. There is some improvement in the right pleural effusion. Reevaluated today on 12/31/2017, patient seems to be quite comfortable, laying in bed, on room air, in no form of distress. Asymptomatic, no cough no wheezing no shortness of breath. He is to have leukocytosis, she also has thrombocytosis , but no evidence of clear-cut infection. CT of the abdomen and pelvis were nondiagnostic. Chest x-ray continues to show small left-sided pleural effusion , not large enough to consider thoracentesis at this point. Not to mention the patient is basically asymptomatic, and she has no active pulmonary symptoms whatsoever. Basic metabolic profile is normal, renal profile is normal. Reevaluated today on 01/01/2018, patient is basically about the same. Her chest x -ray was reviewed, effusion seems to be smaller. WBC count is 16.8 hemoglobin is 7.3 basic metabolic profile is normal. Patient is relatively asymptomatic except he seemed generally weak and will need most likely a long-term of rehab process. The patient is seen again today 01/02/2018 in follow-up on the selective care unit. She is currently sitting up in a chair at the bedside. She is awake and alert in no acute distress. He is maintaining good O2 saturations in the upper 90s on room air. She's been afebrile. Hemodynamically stable. White count 20.3. Hemoglobin 7.9. Platelet count 840,000. Creatinine 0.61. Chest x-ray reveals a stable left lower lobe infiltrate with a small left pleural effusion. Objective - Vital Signs Vital signs: Vital Signs Temp 97.7 F 01/02/18 11:54 Pulse 70 01/02/18 11:54 Resp 16 01/02/18 11:54 BP 124/61 01/02/18 11:54 Pulse Ox 97 01/02/18 11:54 Intake & Output 01/01/18 01/02/18 01/02/18 18:59 06:59 18:59 Intake Total 1324 30 100 Output Total 500 300 Balance 824 30 -200 Weight 91.2 kg Intake: IV 30 30 10 Invasive Line 1 30 30 10 Oral 1294 90 Output: Urine 450 Post Void Residual 0 0 Stool 50 300 Other: Voiding Method Incontinent Incontinent Incontinent # Voids 1 1 ABP, PAP, CO, CI - Last Documented Arterial Blood Pressure 159/93 Pulmonary Artery Pressure 4/4 Cardiac Output 4.5 Cardiac Index 2.5 - Exam - Constitutional General appearance: Present: Awake, alert and oriented in no acute distress - Respiratory Details: Lungs sounds scattered rhonchi bilaterally, crackles in the posterior bases. Respirations even, nonlabored. Currently on 2 L/m with oxygen saturation 98%. Able to achieve 2208-0550 mL on her incentive spirometry. Effective cough. - Cardiovascular Details: S1, S2 present. Regular rate and rhythm, sinus rhythm on telemetry. Palpable peripheral pulses bilaterally. No edema present. No calf pain or tenderness noted. - Gastrointestinal Gastrointestinal Comment(s): Abdomen soft, nontender, nondistended. Active bowel sounds 4 quadrants. Tolerating diet. Ostomy functioning. Wound VAC in place. - Genitourinary Genitourinary Comment(s): Continues to void clear, yellow urine. - Integumentary Integumentary Comment(s): Skin is warm and dry with evidence of good perfusion. Left groin soft, nontender, no drainage. - Neurologic Neurologic: Present: CNII-XII intact - Musculoskeletal Musculoskeletal Comment(s): Walks with cane. Musculoskeletal: Present: Weak - Psychiatric Psychiatric: Present: A&O x's 3 - Labs CBC & Chem 7: 01/02/18 06:53 01/02/18 07:08 Labs: Abnormal Lab Results - Last 24 Hours (Table) 01/01/18 01/01/18 01/02/18 Range/Units 16:13 20:55 02:16 WBC (3.8-10.6) k/uL RBC (3.80-5.40) m/uL Hgb (11.4-16.0) gm/dL Hct (34.0-46.0) % MCHC (31.0-37.0) g/dL RDW (11.5-15.5) % Plt Count (150-450) k/uL Neutrophils # (1.3-7.7) k/uL Monocytes # (0-1.0) k/uL Sodium (137-145) mmol/L Chloride (98-107) mmol/L POC Glucose (mg/dL) 104 H 167 H 106 H (75-99) mg/dL Alkaline Phosphatase (38-126) U/L Total Protein (6.3-8.2) g/dL Albumin (3.5-5.0) g/dL 01/02/18 01/02/18 01/02/18 Range/Units 06:53 07:08 11:14 WBC 20.3 H (3.8-10.6) k/uL RBC 3.05 L (3.80-5.40) m/uL Hgb 7.9 L (11.4-16.0) gm/dL Hct 26.2 L (34.0-46.0) % MCHC 30.3 L (31.0-37.0) g/dL RDW 15.7 H (11.5-15.5) % Plt Count 840 H* (150-450) k/uL Neutrophils # 16.6 H (1.3-7.7) k/uL Monocytes # 1.1 H (0-1.0) k/uL Sodium 134 L (137-145) mmol/L Chloride 97 L (98-107) mmol/L POC Glucose (mg/dL) 121 H (75-99) mg/dL Alkaline Phosphatase 330 H (38-126) U/L Total Protein 5.2 L (6.3-8.2) g/dL Albumin 2.2 L (3.5-5.0) g/dL Assessment and Plan Assessment: Impression: #1. Multivessel coronary artery disease, involving left main coronary artery. Status post coronary artery bypass grafting. Postoperative day #22. #2. Acute sepsis secondary to an acute perforated viscus with necrosis of the transverse and right colon and the patient is status post right colectomy, transverse colectomy and takedown of splenic flexure with ileostomy. Wound VAC in place Postoperative day #13 #3. Acute hypoxic respiratory failure secondary to above, recovered. There is no clear evidence of ARDS. #4. Diabetes mellitus 2 #5. Obesity #6. Peripheral vascular disease #7. History of nicotine dependence, currently in remission, quit 10 years ago, carries [id number] smoking history #8. Hypothyroidism #9. Paroxysmal atrial fibrillation, currently in sinus rhythm #10. Chronic low back pain #11. Depression #12. Urinary tract infection secondary to E. coli, follow-up culture negative #13. Hypertension. Plan: The patient was seen and evaluated by Dr. Griffin. Chest x-ray and labs were reviewed. Working well with the incentive spirometer. Continue her current treatment plan. We will increase her activity as tolerated. We will continue to follow and make further recommendations based on her clinical status. I, the cosigning physician, performed a history & physical examination of the patient. Lungs sounds with crackles in the left base. Maintaining good O2 saturations in the 90s on room air. I discussed the assessment and plan of care with my nurse practitioner, Anne Marie Javed. I attest to the above note as dictated by her.
--- NOTE | 2018-01-02 13:33 | P.PN ---
Subjective This is a pleasant 72-year-old female status post coronary artery bypass grafting postoperative day, postoperative right colectomy, transverse colectomy, takedown of splenic flexure an ileostomy per Dr. Still. She is seen and examined sitting up in the chair with family at the bedside. She denies chest pain, shortness of breath, palpitations or dizziness. She continues to complain of mild abdominal discomfort as well as generalized fatigue. She states she started physical therapy today. Blood pressure 124/61 heart rate 70 afebrile maintaining oxygen saturation on room air. Chest x-ray report this morning rate stable left lower lobe infiltrate. Laboratory data reviewed, WBC 20.3, hemoglobin 7.9, platelets 840, sodium 134, potassium 3.8, creatinine 0.61. Objective - Vital Signs Vital signs: Vital Signs Temp 97.7 F 01/02/18 11:54 Pulse 70 01/02/18 11:54 Resp 16 01/02/18 11:54 BP 124/61 01/02/18 11:54 Pulse Ox 97 01/02/18 11:54 Intake & Output 01/01/18 01/02/18 01/02/18 18:59 06:59 18:59 Intake Total 1324 30 220 Output Total 500 300 Balance 824 30 -80 Weight 91.2 kg Intake: IV 30 30 10 Invasive Line 1 30 30 10 Oral 1294 210 Output: Urine 450 Post Void Residual 0 0 Stool 50 300 Other: Voiding Method Incontinent Incontinent Incontinent # Voids 1 1 ABP, PAP, CO, CI - Last Documented Arterial Blood Pressure 159/93 Pulmonary Artery Pressure 4/4 Cardiac Output 4.5 Cardiac Index 2.5 - Exam GENERAL: Well-appearing, well-nourished and in no acute distress. NECK: Supple without JVD or thyromegaly. LUNGS: Breath sounds clear to auscultation bilaterally. Respiration equal and unlabored. No wheezes, rales or rhonchi. Diminished bilaterally. HEART: Regular rate and rhythm without murmurs, rubs or gallops. S1 and S2 heard. EXTREMITIES: Normal range of motion, trace bilateral lower extremity nonpitting edema. No clubbing or cyanosis. Peripheral pulses intact. - Labs CBC & Chem 7: 01/02/18 06:53 01/02/18 07:08 Labs: Abnormal Lab Results - Last 24 Hours (Table) 01/01/18 01/01/18 01/02/18 Range/Units 16:13 20:55 02:16 WBC (3.8-10.6) k/uL RBC (3.80-5.40) m/uL Hgb (11.4-16.0) gm/dL Hct (34.0-46.0) % MCHC (31.0-37.0) g/dL RDW (11.5-15.5) % Plt Count (150-450) k/uL Neutrophils # (1.3-7.7) k/uL Monocytes # (0-1.0) k/uL Sodium (137-145) mmol/L Chloride (98-107) mmol/L POC Glucose (mg/dL) 104 H 167 H 106 H (75-99) mg/dL Alkaline Phosphatase (38-126) U/L Total Protein (6.3-8.2) g/dL Albumin (3.5-5.0) g/dL 01/02/18 01/02/18 01/02/18 Range/Units 06:53 07:08 11:14 WBC 20.3 H (3.8-10.6) k/uL RBC 3.05 L (3.80-5.40) m/uL Hgb 7.9 L (11.4-16.0) gm/dL Hct 26.2 L (34.0-46.0) % MCHC 30.3 L (31.0-37.0) g/dL RDW 15.7 H (11.5-15.5) % Plt Count 840 H* (150-450) k/uL Neutrophils # 16.6 H (1.3-7.7) k/uL Monocytes # 1.1 H (0-1.0) k/uL Sodium 134 L (137-145) mmol/L Chloride 97 L (98-107) mmol/L POC Glucose (mg/dL) 121 H (75-99) mg/dL Alkaline Phosphatase 330 H (38-126) U/L Total Protein 5.2 L (6.3-8.2) g/dL Albumin 2.2 L (3.5-5.0) g/dL Assessment and Plan Assessment: ASSESSMENT Status post coronary artery bypass graft 4 Status post colectomy and colostomy status post perforated diverticula Paroxysmal atrial fibrillation, currently maintaining sinus mechanism Diabetes mellitus Hypertension Dyslipidemia PLAN Continue current cardiac medications. Incentive spirometry encouraged. Continue to monitor the patient closely and further recommendations will be made based upon clinical course. Nurse Practitioner note has been reviewed, I agree with a documented findings and plan of care. Patient was seen and examined.
[2018-01-02 17:37] LABS: Glucose,Whole Blood 143 mg/dL (75-99)
--- NOTE | 2018-01-02 17:51 | PN ---
PROGRESS NOTE DATE OF SERVICE: 01/02/2018 REASON FOR FOLLOWUP: Leukocytosis. INTERVAL HISTORY: The patient is afebrile this morning. She is feeling slightly better today. Did mention that she is not feeling as weak and tired as she was yesterday. The patient denies having any chest pain. Very minimal cough, not bringing up any sputum. is currently controlled. No nausea or vomiting. Tolerating her diet. PHYSICAL EXAMINATION: Blood pressure 124/61 with a pulse rate of 70, temperature 97.7. She is 97% on room air. General description is an elderly female up in the chair in no distress. HEENT EXAMINATION: Pallor. Oral mucosa membrane dry. LUNGS: Unlabored breathing. Clear to auscultation. No wheeze. HEART: S1, S2. Regular rate and rhythm. ABDOMEN: Soft. No tenderness. EXTREMITIES: Some trace edema of feet. LABS: Hemoglobin 7.9. White count is up to 20.3 today with a BUN of 12, creatinine 0.61. DIAGNOSTIC IMPRESSION AND PLAN: Patient with leukocytosis in a patient who did have a complicated hospital course in a patient who is status post coronary artery bypass grafting, complicated; subsequently did have ischemic bowel requiring a laparotomy and ostomy. Yesterday her white count was showing downward trend; it was down to 16. However, it is up to 20,000 today. The patient seems to be clinically improving. Her antibiotics were adjusted yesterday. Blood cultures were obtained. The patient is on good Gram-negative coverage. Will add vancomycin and see response to the same and will follow her culture closely. Dr. Mccartney will be back tomorrow. He will be updated about her care and will see the patient as of tomorrow. MMODL / IJN: [id number] /
[2018-01-02 20:49] LABS: Glucose,Whole Blood 157 mg/dL (75-99)
--- NOTE | 2018-01-02 23:39 | PN ---
PROGRESS NOTE DATE OF SERVICE: 01/02/2018 PRESENTING COMPLAINT: Tired. INTERVAL HISTORY: Patient is status post CABG followed by ischemic bowel and bowel perforation; has a resulting ileostomy and a wound V.A.C. Today patient is feeling a bit better; actually walked about 10 or 12 steps. Eating a bit better. Did have a bowel movement. Vancomycin was added by Dr. Lancaster for increased white count. Patient has been up in a chair. REVIEW OF SYSTEMS: Done for constitutional, cardiovascular, GI, pulmonary; relevant findings as above. CURRENT MEDICATIONS: Reviewed. They include DuoNeb, p.o. Cordarone, anidulafungin, Plavix, IV Lasix 20 q.8, IV meropenem and vancomycin. PHYSICAL EXAMINATION: Temperature 97.7, pulse 71, respiration 16, blood pressure 114/62, pulse ox 98% on room air. GENERAL APPEARANCE: Sitting up in a chair, awake. EYES: Pupils equal. Conjunctivae pale. HEENT: External appearance of nose and ears normal. Oral cavity normal. NECK: JVD unable to assess. Mass not palpable. RESPIRATORY: Effort increased. LUNGS: Decreased breath sounds. Some crackles. CARDIOVASCULAR: First and second sounds normal. Some edema present. ABDOMEN: Soft, non-tender. Ileostomy bag present. Wound V.A.C. in place. PSYCHIATRY: Alert and oriented x3. Mood and affect normal. INVESTIGATIONS: White count 20.3, hemoglobin 7.9, platelets 840, potassium 3.8. BUN and creatinine are normal. ASSESSMENT: 1. Coronary artery disease, status post coronary artery bypass on December 11. 2. Acute ischemic bowel with perforation and right transverse colectomy and takedown of splenic flexure with resulting ileostomy. 3. Wound V.A.C. 4. Acute hypoxic respiratory failure, status post ventilator support, currently on nasal cannula. 5. Hypotensive and septic shock, now recovered. 6. Paroxysmal atrial fibrillation. Remains in sinus rhythm. 7. Peripheral arterial disease. 8. Hypothyroid. 9. Diabetes mellitus, type 2. 10.Chronic low back pain from arthritis. 11.Depression not otherwise specified. 12.Obesity; body mass index 34.3. 13.Acute blood loss anemia, expected from surgery, and hospital-acquired from blood draws. 14.Hyperlipidemia. 15.Hypoalbuminemia as an acute phase reactant. 16.Bilateral pleural effusion, post-surgical. 17.Essential hypertension. 18.Elevated white count up to 20,000. PLAN: Continue current medication and treatment plan. IV vancomycin was added. Patient remains on a small dose of Lasix. Working better with Physical Therapy. Continue. MMODL / IJN: [id number] /
[2018-01-03] MEDS: HEPARIN SODIUM,PORCINE 5,000 UNIT/ML 1 ML VIAL SQ SCH ×4 (00:20→22:59)
[2018-01-03] MEDS: FUROSEMIDE 10 MG/ML 4 ML VIAL IV SCH ×3 (00:20→16:34)
[2018-01-03] MEDS: oxyCODONE ER 20 MG TAB.ER.12H PO SCH ×4 (00:20→22:59)
[2018-01-03] MEDS: VANCOMYCIN 1,500 MG in SODIUM CHLORIDE 0.9% 250 ML IVPB SCH ×3 (00:21→22:59)
[2018-01-03 02:13] LABS: Glucose,Whole Blood 116 mg/dL (75-99)
[2018-01-03] MEDS: MEROPENEM 1 GM in SODIUM CHLORIDE 0.9% 100 ML IVPB SCH ×3 (05:00→20:11)
[2018-01-03] MEDS: INSULIN ASPART 100 UNIT/ML 1 ML 10 ML VIAL SQ SCH ×5 (05:46→21:00)
[2018-01-03 05:50] LABS: Glucose,Whole Blood 100 mg/dL (75-99)
[2018-01-03] MEDS: LEVOTHYROXINE 75 MCG TAB PO SCH (06:35)
[2018-01-03] MEDS: PANTOPRAZOLE 40 MG TABLET PO SCH (06:35)
--- NOTE | 2018-01-03 07:14 | XR ---
EXAMINATION TYPE: XR chest 1V portable DATE OF EXAM: 01/03/2018 Comparison: 01/02/2018 Clinical History: 72-year-old female Postop CABG Findings: Median sternotomy wires are present with post-CABG changes. Calcified subcarinal lymph node. Heart sai rderline in size. Continued small left pleural effusion with adjacent left basilar opacity. Slight in terval improvement. Advanced degenerative changes of both shoulders. Impression: Small left pleural effusion with adjacent prominent atelectasis and/or consolidation, slightly decrea sed from prior.
--- NOTE | 2018-01-03 07:32 | P.PN ---
Subjective Progress Note Date: 01/03/18 Principal diagnosis: Coronary artery disease with critical left main disease. Preserved left ventricular function. Previous medical history of hypertension, hyperlipidemia , diabetes mellitus with preoperative hemoglobin A1c 8.1%, hypothyroid, chest granulomatous disease, peripheral vascular disease status post right fem-pop bypass, previous tobacco dependence with FEV1 109% of predicted in November 2016, recent fall in June 2017 with torn right rotator cuff, questionable DVT with previous Coumadin use greater than 2 years ago, syncopal episodes, paroxysmal atrial fibrillation, chronic low back pain, obesity, and depression. Preoperative E. coli urinary tract infection. POD #23 urgent quadruple coronary artery bypass grafting using the left internal mammary sequentially to the diagonal artery and to the left anterior descending artery, reverse saphenous vein graft from the aorta to the first obtuse marginal, reverse saphenous vein graft from the aorta to the third obtuse marginal artery. Bilateral pulmonary vein isolation using the AtriCure radiofrequency clamp. Exclusion of the left atrial appendage using a 35 mm AtriClip. Intraoperative transesophageal echocardiogram and epi-aortic scanning. Postoperative elevation in transaminases, an unexpected outcome, resolving. Leukocytosis, present preoperatively. Postoperative diarrhea, an unexpected outcome. Postoperative normocytic, normochromic anemia, and expected outcome of surgery secondary to cardiopulmonary bypass and hemodilution. Postoperative urinary retention, an unexpected outcome. Postoperative pneumoperitoneum, an unexpected outcome. Necrosis of the transverse colon, right colon, an unexpected outcome. Sepsis, septic shock, an unexpected outcome. POD #13 right colectomy, transverse colectomy, takedown splenic flexure, ileostomy performed by Dr. Montoya. Postoperative prolonged mechanical ventilation, need to be reintubated for second surgery, an unexpected outcome. Postoperative left-sided pleural effusion, an unexpected outcome, resolving. Patient is currently sitting up in the recliner in no acute distress. Denies pain or shortness of breath at this time. No new complaints. Patient continues to remain on meropenem and rhexis, Flagyl and vancomycin added per Dr. Lancaster due to patient's continued leukocytosis. Remains afebrile. Labs pending for this morning. Wound VAC and ostomy changed yesterday. Patient continues to have stool output from her ostomy. Minimal output from wound VAC. Hemodynamically stable. Objective - Vital Signs Vital signs: Vital Signs Temp 98.0 F 01/03/18 04:00 Pulse 76 01/03/18 04:00 Resp 18 01/03/18 04:00 BP 112/63 01/03/18 04:00 Pulse Ox 95 01/03/18 04:00 Intake & Output 01/02/18 01/03/18 01/03/18 18:59 06:59 18:59 Intake Total 957 Output Total 300 375 Balance 657 -375 Weight 88.1 kg Intake: IV 30 Invasive Line 1 30 Oral 927 Output: Urine 375 Straight 375 Post Void Residual 0 Stool 300 Other: Voiding Method Incontinent Diaper Incontinent # Voids 1 2 ABP, PAP, CO, CI - Last Documented Arterial Blood Pressure 159/93 Pulmonary Artery Pressure 4/4 Cardiac Output 4.5 Cardiac Index 2.5 - Constitutional General appearance: Present: cooperative, no acute distress, obese - Respiratory Details: Lungs sounds slightly diminished bilaterally. Respirations even, nonlabored. Currently on room air with oxygen saturation 95%. Able to achieve 1250 mL on her incentive spirometry. Strong, nonproductive cough. - Cardiovascular Details: S1, S2 present. Regular rate and rhythm, sinus rhythm on telemetry. Sternum stable. Palpable peripheral pulses bilaterally. Bilateral lower extremity pitting edema present. Right upper basilic vein midline catheter present. Heart hugger in place with patient demonstrating appropriate use. Antiembolism stockings, SCDs present. - Gastrointestinal Gastrointestinal Comment(s): Abdomen soft, nondistended. Active bowel sounds present. Right lower quadrant ileostomy present with dark brown liquid stool. Tolerating diet. - Genitourinary Genitourinary Comment(s): Patient remains incontinent of urine but is voiding. - Integumentary Integumentary Comment(s): Skin is warm and dry. Anterior chest incision well approximated with dry intact dressing present. Left lower semi-EVH site well approximated. Midline abdominal incision clean, andrei intact, wound VAC present. - Neurologic Neurologic: Present: CNII-XII intact - Musculoskeletal Musculoskeletal: Present: generalized weakness, strength equal bilaterally - Psychiatric Psychiatric: Present: A&O x's 3, appropriate affect, intact judgment & insight - Allied health notes Allied health notes reviewed: nursing - Labs CBC & Chem 7: 01/02/18 06:53 01/02/18 07:08 Labs: Abnormal Lab Results - Last 24 Hours (Table) 12/31/17 01/02/18 01/02/18 Range/Units 06:31 06:53 07:08 WBC 20.3 H (3.8-10.6) k/uL RBC 3.05 L (3.80-5.40) m/uL Hgb 7.9 L (11.4-16.0) gm/dL Hct 26.2 L (34.0-46.0) % MCHC 30.3 L (31.0-37.0) g/dL RDW 15.7 H (11.5-15.5) % Plt Count 840 H* (150-450) k/uL Neutrophils # 16.6 H (1.3-7.7) k/uL Monocytes # 1.1 H (0-1.0) k/uL Sodium 134 L (137-145) mmol/L Chloride 97 L (98-107) mmol/L POC Glucose (mg/dL) (75-99) mg/dL Alkaline Phosphatase 330 H (38-126) U/L Total Protein 5.2 L (6.3-8.2) g/dL Albumin 2.2 L (3.5-5.0) g/dL Prealbumin <5.0 L (18.0-42.0) mg/dL 01/02/18 01/02/18 01/02/18 Range/Units 11:14 17:07 20:43 WBC (3.8-10.6) k/uL RBC (3.80-5.40) m/uL Hgb (11.4-16.0) gm/dL Hct (34.0-46.0) % MCHC (31.0-37.0) g/dL RDW (11.5-15.5) % Plt Count (150-450) k/uL Neutrophils # (1.3-7.7) k/uL Monocytes # (0-1.0) k/uL Sodium (137-145) mmol/L Chloride (98-107) mmol/L POC Glucose (mg/dL) 121 H 143 H 157 H (75-99) mg/dL Alkaline Phosphatase (38-126) U/L Total Protein (6.3-8.2) g/dL Albumin (3.5-5.0) g/dL Prealbumin (18.0-42.0) mg/dL 01/03/18 01/03/18 Range/Units 01:52 05:48 WBC (3.8-10.6) k/uL RBC (3.80-5.40) m/uL Hgb (11.4-16.0) gm/dL Hct (34.0-46.0) % MCHC (31.0-37.0) g/dL RDW (11.5-15.5) % Plt Count (150-450) k/uL Neutrophils # (1.3-7.7) k/uL Monocytes # (0-1.0) k/uL Sodium (137-145) mmol/L Chloride (98-107) mmol/L POC Glucose (mg/dL) 116 H 100 H (75-99) mg/dL Alkaline Phosphatase (38-126) U/L Total Protein (6.3-8.2) g/dL Albumin (3.5-5.0) g/dL Prealbumin (18.0-42.0) mg/dL Microbiology - Last 24 Hours (Table) 01/01/18 21:38 Blood Culture - Preliminary Blood No Growth after 24 hours - Imaging and Cardiology Chest x-ray: report reviewed, image reviewed Assessment and Plan (1) Coronary artery disease involving left main coronary artery Current Visit: Yes Status: Chronic Code(s): I25.10 - ATHSCL HEART DISEASE OF [place] CORONARY ARTERY W/O ANG PCTRS SNOMED Code(s): 883338479 (2) Hypertension Current Visit: Yes Status: Chronic Code(s): I10 - ESSENTIAL (PRIMARY) HYPERTENSION SNOMED Code(s): 08465162 (3) Hyperlipidemia Current Visit: Yes Status: Chronic Code(s): E78.5 - HYPERLIPIDEMIA, UNSPECIFIED SNOMED Code(s): 89582244 (4) Diabetes Current Visit: Yes Status: Chronic Code(s): E11.9 - TYPE 2 DIABETES MELLITUS WITHOUT COMPLICATIONS SNOMED Code(s): 94499351 (5) Peripheral vascular disease Current Visit: Yes Status: Chronic Code(s): I73.9 - PERIPHERAL VASCULAR DISEASE, UNSPECIFIED SNOMED Code(s): 748709634 (6) Family history of heart disease Current Visit: Yes Status: Chronic Code(s): Z82.49 - FAMILY HX OF ISCHEM HEART DIS AND OTH DIS OF THE CIRC SYS SNOMED Code(s): 411567831 (7) Tobacco dependence in remission Current Visit: No Status: Resolved Code(s): F17.201 - NICOTINE DEPENDENCE, UNSPECIFIED, IN REMISSION SNOMED Code(s): 018878139 (8) Hypothyroid Current Visit: Yes Status: Chronic Code(s): E03.9 - HYPOTHYROIDISM, UNSPECIFIED SNOMED Code(s): 53089593 (9) Syncopal episodes Current Visit: No Status: Chronic Code(s): R55 - SYNCOPE AND COLLAPSE SNOMED Code(s): 471672580 (10) History of DVT (deep vein thrombosis) Current Visit: No Status: Resolved Code(s): Z86.718 - PERSONAL HISTORY OF OTHER VENOUS THROMBOSIS AND EMBOLISM SNOMED Code(s): 617440381 (11) History of atrial fibrillation Current Visit: No Status: Resolved Code(s): Z86.79 - PERSONAL HISTORY OF OTHER DISEASES OF THE CIRCULATORY SYSTEM SNOMED Code(s): 169079947 (12) Chronic low back pain Current Visit: Yes Status: Chronic Code(s): M54.5 - LOW BACK PAIN; G89.29 - OTHER CHRONIC PAIN SNOMED Code(s): 507948114 (13) Depression Current Visit: Yes Status: Chronic Code(s): F32.9 - MAJOR DEPRESSIVE DISORDER, SINGLE EPISODE, UNSPECIFIED SNOMED Code(s): 16873084 Plan: 1. Continue low-dose aspirin, statin, Plavix, hydralazine, beta sheree, Norvasc. 2. Bronchodilators per pulmonology. 3. Continue amiodarone for A. fib prophylaxis. 4. Continue meropenem, Eraxis per Dr. Mccartney. Flagyl, vancomycin added per Dr. Lancaster. 5. Continue IV Lasix every 8 hours. 6. Bladder scan after each void or every 6 hours. Straight cath for > 300 mL residual. 7. Monitor daily labs, chest x-rays. Prealbumin still <5. 8. GI prophylaxis with Protonix. DVT prophylaxis with subcu heparin, SCDs. 9. Pain control with current medication regimen. 10. Insulin/diabetic management per primary care. 11. Wound VAC per general surgery to abdominal incisions. To be changed Monday , Monday, Monday. 12. Increase activity, ambulate as tolerated. PT/OT/cardiac rehab following. 13. Discharge planning in progress. Anticipate discharge soon. Patient will need subacute rehab versus long-term acute care at discharge. 14. Encourage oral nutrition, especially protein. 15. More recommendations to follow. Time with Patient: Greater than 30
[2018-01-03 07:48] LABS: HCT 25.4 % (34.0-46.0); HGB 7.9 gm/dL (11.4-16.0); MCH 26.8 pg (25.0-35.0); MCHC 30.9 g/dL (31.0-37.0); MCV 86.9 fL (80.0-100.0); RBC 2.93 m/uL (3.80-5.40); RDW 15.6 % (11.5-15.5); WBC 19.4 k/uL (3.8-10.6)
[2018-01-03 07:49] LABS: Basophils # (A) 0.1 k/uL (0-0.2); Basophils % (A) 1 %; Eosinophils % (A) 5 %; Hypochromasia Marked; Lymphocytes # (A) 1.4 k/uL (1.0-4.8); Lymphocytes % (A) 7 %; Mean Platelet Volume 6.9; Monocytes # (A) 0.8 k/uL (0-1.0); Monocytes % (A) 4 %; Neutrophils # (A) 15.8 k/uL (1.3-7.7); Neutrophils % (A) 82 %; Platelet Count 792 k/uL (150-450); Poikilocytosis Slight
[2018-01-03 07:52] LABS: ALT 29 U/L (9-52); AST 21 U/L (14-36); Albumin 2.1 g/dL (3.5-5.0); Alkaline Phosphatase 297 U/L (38-126); Anion Gap 7 mmol/L; Blood Urea Nitrogen 12 mg/dL (7-17); Calcium 8.1 mg/dL (8.4-10.2); Carbon Dioxide 30 mmol/L (22-30); Chloride 97 mmol/L (98-107); Glucose 88 mg/dL (74-99); Magnesium 1.7 mg/dL (1.6-2.3); Phosphorus 2.8 mg/dL (2.5-4.5); Potassium 3.2 mmol/L (3.5-5.1); Sodium 134 mmol/L (137-145); Total Bilirubin 0.4 mg/dL (0.2-1.3); Total Protein 4.9 g/dL (6.3-8.2)
[2018-01-03] MEDS: IPRATROPIUM-ALBUTEROL 3 ML NEB INHALATION SCH ×5 (08:33→20:15)
[2018-01-03] MEDS: MAGNESIUM SULFATE-D5W PMX 1 GM in DEXTROSE/WATER 1 100ML.BAG IVPB SCH ×2 (09:04→12:02)
[2018-01-03] MEDS: ASPIRIN 81 MG PO SCH (09:05)
[2018-01-03] MEDS: POTASSIUM CHLORIDE ER 20 MEQ TAB.ER PO SCH ×3 (09:05→12:03)
[2018-01-03] MEDS: AMIODARONE 200 MG TAB PO SCH (09:05)
[2018-01-03] MEDS: metroNIDAZOLE 500 MG TAB PO SCH ×3 (09:06→20:13)
[2018-01-03] MEDS: CLOPIDOGREL 75 MG TAB PO SCH (09:06)
[2018-01-03] MEDS: hydrALAZINE HCL 10 MG TAB PO SCH ×2 (09:06→22:56)
[2018-01-03] MEDS: DULoxetine HCL 60 MG CAPSULE.DR PO SCH (09:06)
[2018-01-03] MEDS: ATORVASTATIN 40 MG TAB PO SCH (09:06)
[2018-01-03] MEDS: NYSTATIN 100,000 UNIT/ML SUSP 500,000 UNIT/5 ML CUP PO SCH ×4 (09:07→20:13)
[2018-01-03] MEDS: METOPROLOL TARTRATE 25 MG TAB PO SCH ×2 (09:07→20:12)
--- NOTE | 2018-01-03 10:03 | CDI ---
Last Revision, March 2017 Documentation Clarification Form Date: 01/03/18 From: Hillary Sweeney RN Admit Date: 12/08/2017 8:14:00 AM Patient Name: Carolyn Sellers Visit Number: [id number] ATTENTION: The Clinical Documentation Specialists (CDI) and [facility] Coding Staff appreciate your assistance in clarifying documentation. Please respond to the clarification below the line at the bottom and electronically sign. The CDI & [facility] Coding staff will review the response and follow-up if needed. Please note: Queries are made part of the Legal Health Record. If you have any questions, please contact the author of this message via ITS. Dr. Mayank Yousif MD, A diagnosis of UTI has been documented throughout the chart. Pt admitted for positive stress test, 12/11 Pt had a CABG, 12/20 Pt. had a right colectomy, transverse colectomy, takedown splenic flexure, ileostomy. History/Risk factors: A Fib, CAD, DM 2, HTN, DJD, hyperlipidemia, breast surgery , smoker. OA , hypo thyroid, anxiety, depression Almaguer Catheter was inserted Pre-op 12/11, PN 12/14 states "Almaguer discontinued yesterday". PN 12/19: Almaguer catheter was replaced for urinary retention". PN : Almaguer discontinued yesterday Urinalysis: 12/08: appearance cloudy, specific gravity 1.044, blood moderate, leukocyte esterase small, bacteria occasional, mucus rare. 12/30: protein trace , leukocyte esterase trace Urine culture: 12/08 Escherichia Coli 12/12 no growth after 18 hours Lab results on admission: WBC 11.1, MCV 79.6, NEUT 8.5, APTT 21.4, K+ 3.2, CR 0.43, and HDL 66. 9/5: WBC 19.4 Treatment: Antibiotics: Cefazolin IVPB, Rocephin IVPB, Meropenem IVPB, Flagyl PO, In your professional opinion, can you please clarify the etiology of the UTI, if known? Almaguer catheter UTI not related to catheter Other condition, please specify Unable to determine If not Almaguer catheter related was it POA? UTI not related to catheter, present on admission MTDD
[2018-01-03] MEDS: ANIDULAFUNGIN 100 MG in SODIUM CHLORIDE 0.9% 100 ML IVPB SCH (10:32)
--- NOTE | 2018-01-03 11:41 | P.PN ---
Subjective Progress Note Date: 01/03/18 72-year-old female sitting up in a chair seen at the bedside this morning increasingly more awake and alert states she's tired "being here" , wbc 19.4 this morning platelets 792 potassium 3.2 currently patient is denying abdominal pain ostomy moderate amount of stool noted wound VAC in place to abdominal surgical incision sites states less abdominal discomfort December 20 right colectomy transverse colectomy, takedown splenic flexure, ileostomy. due to perforated perforated viscus with necrosis of the transverse colon right colon Objective - Vital Signs Vital signs: Vital Signs Temp 97.8 F 01/03/18 08:00 Pulse 72 01/03/18 08:46 Resp 18 01/03/18 08:00 BP 122/70 01/03/18 08:00 Pulse Ox 96 01/03/18 08:00 Intake & Output 01/02/18 01/03/18 01/03/18 18:59 06:59 18:59 Intake Total 957 Output Total 300 375 Balance 657 -375 Weight 88.1 kg Intake: IV 30 Invasive Line 1 30 Oral 927 Output: Urine 375 Straight 375 Post Void Residual 0 Stool 300 Other: Voiding Method Incontinent Diaper Incontinent # Voids 1 2 ABP, PAP, CO, CI - Last Documented Arterial Blood Pressure 159/93 Pulmonary Artery Pressure 4/4 Cardiac Output 4.5 Cardiac Index 2.5 - Exam Physical exam Awake and alert sitting up in the chair states less abdominal pain this morning Lungs diminished bilaterally room air sats 96% no shortness of breath Heart S1-S2 audible denying chest pain Abdomen ostomy moderate amount of stool surgical dressing currently dry wound VAC in place. Hypoactive bowel tones incontinent urine reports no nausea vomiting reportedly tolerating a diet Extremities Venodyne's on to bilateral lower extremities moderate amount 2+ eating edema lower extremity - Labs CBC & Chem 7: 01/03/18 07:14 01/03/18 07:14 Labs: Abnormal Lab Results - Last 24 Hours (Table) 12/31/17 01/02/18 01/02/18 Range/Units 06:31 17:07 20:43 WBC (3.8-10.6) k/uL RBC (3.80-5.40) m/uL Hgb (11.4-16.0) gm/dL Hct (34.0-46.0) % MCHC (31.0-37.0) g/dL RDW (11.5-15.5) % Plt Count (150-450) k/uL Neutrophils # (1.3-7.7) k/uL Eosinophils # (0-0.7) k/uL Sodium (137-145) mmol/L Potassium (3.5-5.1) mmol/L Chloride (98-107) mmol/L POC Glucose (mg/dL) 143 H 157 H (75-99) mg/dL Calcium (8.4-10.2) mg/dL Alkaline Phosphatase (38-126) U/L Total Protein (6.3-8.2) g/dL Albumin (3.5-5.0) g/dL Prealbumin <5.0 L (18.0-42.0) mg/dL 01/03/18 01/03/18 01/03/18 Range/Units 01:52 05:48 07:14 WBC 19.4 H (3.8-10.6) k/uL RBC 2.93 L (3.80-5.40) m/uL Hgb 7.9 L (11.4-16.0) gm/dL Hct 25.4 L (34.0-46.0) % MCHC 30.9 L (31.0-37.0) g/dL RDW 15.6 H (11.5-15.5) % Plt Count 792 H (150-450) k/uL Neutrophils # 15.8 H (1.3-7.7) k/uL Eosinophils # 1.0 H (0-0.7) k/uL Sodium (137-145) mmol/L Potassium (3.5-5.1) mmol/L Chloride (98-107) mmol/L POC Glucose (mg/dL) 116 H 100 H (75-99) mg/dL Calcium (8.4-10.2) mg/dL Alkaline Phosphatase (38-126) U/L Total Protein (6.3-8.2) g/dL Albumin (3.5-5.0) g/dL Prealbumin (18.0-42.0) mg/dL 01/03/18 Range/Units 07:14 WBC (3.8-10.6) k/uL RBC (3.80-5.40) m/uL Hgb (11.4-16.0) gm/dL Hct (34.0-46.0) % MCHC (31.0-37.0) g/dL RDW (11.5-15.5) % Plt Count (150-450) k/uL Neutrophils # (1.3-7.7) k/uL Eosinophils # (0-0.7) k/uL Sodium 134 L (137-145) mmol/L Potassium 3.2 L (3.5-5.1) mmol/L Chloride 97 L (98-107) mmol/L POC Glucose (mg/dL) (75-99) mg/dL Calcium 8.1 L (8.4-10.2) mg/dL Alkaline Phosphatase 297 H (38-126) U/L Total Protein 4.9 L (6.3-8.2) g/dL Albumin 2.1 L (3.5-5.0) g/dL Prealbumin (18.0-42.0) mg/dL Microbiology - Last 24 Hours (Table) 01/01/18 21:38 Blood Culture - Preliminary Blood No Growth after 24 hours Assessment and Plan Assessment: Impression Ischemic colitis resolving stool for C. diff negative Postop diarrhea 9 expected outcome Postop urgent quadruple coronary artery bypass grafting using left internal mammary Echocardiogram preserved LV function Sudden onset of abdominal pain postoperative suspect due to free air. As evident on a CAT scan of the abdomen and pelvis Right colectomy, transverse colectomy, takedown splenic flexure, ileostomy for Perforated viscus done on December 20 Necrosis of transverse colon, right colon and on expected outcome Deconditioned suspect due to prolonged length of stay Leukocytosis present preoperatively Postoperative diarrhea on expected outcome Postoperative pneumoperitoneum Plan Ileostomy care Ileostomy teaching as appropriate Pain control Wound VAC as ordered Continue postop surgical care care PT OT eval Will follow with you with further recommendations as clinical course indicates The above impression and plan of care have been discussed and directed by signing physician. Missy Baca nurse practitioner acting as scribe for signing physician.
--- NOTE | 2018-01-03 11:48 | P.PN ---
Subjective Progress Note Date: 01/03/18 Principal diagnosis: Multi-vessel coronary artery disease, status post coronary artery bypass grafting, CHARLES to LAD, SVG to OM1, SVG to OM 3 with left lower extremity endoscopic vein harvest, and modified Cline maze procedure and exclusion of left atrial appendage Mrs. Sellers is a 72-year-old white female patient of Dr. Alcala who was undergoing cardiac evaluation for clearance for her upcoming right rotator cuff repair, was found to have inferoseptal ischemia on the nuclear stress test. Cardiac catheterization showed left main disease of 60-70%, extending into the proximal circumflex, mid LAD of 70%, and 70% ostial lesion of the left circumflex, and no significant right coronary artery disease. She was recommended surgical intervention for which she is scheduled on Monday, on 12/11. Past medical history is positive for diabetes mellitus type 2, hypertension, hyperlipidemia, hypothyroidism, peripheral vascular disease status post right fem-pop bypass, previous nicotine dependence, quit smoking 10 years ago, carries [id number] smoking history, DVT with previous Coumadin use , paroxysmal atrial fibrillation, chronic back pain, obesity and depression. Patient had a spirometry PFT in November 2016 which showed FEV1 of 109%. We are seeing this patient in consultation for pulmonary management for the upcoming coronary artery bypass grafting surgery. On today's evaluation of a 12/10/2017, the patient is free of any chest pain. The patient will be undergoing a cardiac bypass surgery in a.m. Hemodynamically stable. Using incentive spirometer. A bit anxious for tomorrow. Otherwise no other significant events overnight. Blood work shows a hemoglobin of 13.1. Renal function remains stable. On 12/11/2017 patient seen in follow-up in the intensive care unit, following coronary artery bypass grafting, with CHARLES to LAD, SVG to OM1, and SVG to OM 3, with left leg endoscopic vein harvesting, modified Cline-Maze procedure, and exclusion of the left atrial appendage. She is sedated, on mechanical ventilator, he is currently on SIMV mode of ventilation, with a rate of 12, tidal volume of 400, FiO2 of 100%, and PEEP of 8. Spontaneous breaths volumes were noted to be low and patient was asynchronous with the vent. Patient was placed on assist-control mode of ventilation with a rate of 12, tidal vital 400 , FiO2 100% and PEEP of 8. Patient Postoperative blood gases showed pO2 163, pCO2 50, and pH of 7.34. FiO2 was decreased to 80%. Patient is currently on maintenance IV fluids of Lactated Ringer's at a rate of 50 ML per hour, Nitroglycerin drip is at 5 micg/min, propofol is currently at 20 mcg/kg/min. blood pressure is 117/67, BP pressures at 24/13, cardiac output and cardiac index are 5.2 and 2.9. Intraoperatively patient received 2.5 L of IV fluids, 500 mL of 5% albumin, and 300 mL of Cell Saver. Patient has mediastinal and left pleural chest tubes with small amount of sanguinous output. Medial sternotomy incision is clean dry and intact, covered with surgical dressing, chest tube sites are clean dry and intact. Left leg incision site covered with an Lavell wrap, SCDs are on. patient has atrioventricular wires in place, currently at AAO mode with atrial rate of 80 BPM. Postop blood work showed a CBC of 19.8, hemoglobin of 9.6, 140, potassium is 4.1, chloride is 108, BUN of 11, creatinine 0.41, AST of 204, ALT of 104, alkaline phosphatase is 95. On 12/12/2017 patient seen in follow-up in the intensive care unit. She was extubated at 1820 on 12/11/2017, little over 4 hours post OR exit time. His morning she seen sitting up in the reclining chair, awake alert, is complaining of moderate to severe amount of back pain. Currently on 2 L per nasal cannula, pulse ox is 97%, she is afebrile, vital signs are stable. Sinus rhythm on monitor, with a rate of 83 bpm. Epicardial wires to external pacemaker with a backup rate. Lung sounds are positive for a few bibasilar crackles, her incentive spirometry effort is 1500 mL today. IV drips are 0.9 at a rate of 40 ML per hour, clevidipine at 8 mg per hour, and insulin at 4 units per hour. Today's chest x-ray was reviewed and shows stable bibasilar opacities related to atelectasis., no sizable pleural effusion. No pneumothorax. Midsternal incision is clean dry and intact, chest tube sites are clean dry and intact. There is serosanguineous output from the mediastinal and left pleural chest tubes. Today's blood work shows WBC is trending up, up to 24.1, hemoglobin is 11.8, sodium is 133, potassium is 3.5, BUN is 7, creatinine is 0.30. LFTs are trending down, AST is down to 125, and ALT is 111, alkaline phosphatase is 139. PA pressures Erik over 6, cardiac output and index is 4.0 at 2.4. On 01/03/2018 patient seen in follow-up on selective care unit. She is sitting up in the chair, in no acute distress. Room air pulse ox is 96%, denies any chest pain or shortness of breath. Her incentive spirometer effort today is 9113-7752 ML. Lung sounds are diminished to auscultation, no rhonchi, no rales or wheezing noted. Today's chest x-ray has been reviewed by Dr. Griffin, shows some basilar atelectasis and small pleural effusions. Absent been reviewed, count has slightly trended down, down to 19.4, hemoglobin is 7.9, serum sodium is 134, potassium is 3.2, renal profile is normal, alkaline phosphatase continues to down trend, AST and ALT are within normal limits. Midsternal incision is clean dry and intact, abdominal wound VAC is present continuous suction minimal output on the wound VAC. Infectious disease is following in regards to antibiotic management. No fever no chills. Physical therapy is on consult. His chest planning is in progress, anticipate discharge soon, patient will need subacute rehab at discharge. Objective - Vital Signs Vital signs: Vital Signs Temp 97.8 F 01/03/18 08:00 Pulse 72 01/03/18 08:46 Resp 18 01/03/18 08:00 BP 122/70 01/03/18 08:00 Pulse Ox 96 01/03/18 08:00 Intake & Output 01/02/18 01/03/18 01/03/18 18:59 06:59 18:59 Intake Total 957 Output Total 300 375 Balance 657 -375 Weight 88.1 kg Intake: IV 30 Invasive Line 1 30 Oral 927 Output: Urine 375 Straight 375 Post Void Residual 0 Stool 300 Other: Voiding Method Incontinent Diaper Incontinent # Voids 1 2 ABP, PAP, CO, CI - Last Documented Arterial Blood Pressure 159/93 Pulmonary Artery Pressure 4/4 Cardiac Output 4.5 Cardiac Index 2.5 - Exam - Constitutional General appearance: Present: Awake, alert and oriented in no acute distress - Respiratory Details: Lungs sounds scattered rhonchi bilaterally, crackles in the posterior bases. Respirations even, nonlabored. Currently on 2 L/m with oxygen saturation 98%. Able to achieve 4001-7007 mL on her incentive spirometry. Effective cough. - Cardiovascular Details: S1, S2 present. Regular rate and rhythm, sinus rhythm on telemetry. Palpable peripheral pulses bilaterally. No edema present. No calf pain or tenderness noted. - Gastrointestinal Gastrointestinal Comment(s): Abdomen soft, nontender, nondistended. Active bowel sounds 4 quadrants. Tolerating diet. Ostomy functioning. Wound VAC in place. - Genitourinary Genitourinary Comment(s): Continues to void clear, yellow urine. - Integumentary Integumentary Comment(s): Skin is warm and dry with evidence of good perfusion. Left groin soft, nontender, no drainage. - Neurologic Neurologic: Present: CNII-XII intact - Musculoskeletal Musculoskeletal Comment(s): Walks with cane. Musculoskeletal: Present: Weak - Psychiatric Psychiatric: Present: A&O x's 3 - Labs CBC & Chem 7: 01/03/18 07:14 01/03/18 07:14 Labs: Abnormal Lab Results - Last 24 Hours (Table) 12/31/17 01/02/18 01/02/18 Range/Units 06:31 17:07 20:43 WBC (3.8-10.6) k/uL RBC (3.80-5.40) m/uL Hgb (11.4-16.0) gm/dL Hct (34.0-46.0) % MCHC (31.0-37.0) g/dL RDW (11.5-15.5) % Plt Count (150-450) k/uL Neutrophils # (1.3-7.7) k/uL Eosinophils # (0-0.7) k/uL Sodium (137-145) mmol/L Potassium (3.5-5.1) mmol/L Chloride (98-107) mmol/L POC Glucose (mg/dL) 143 H 157 H (75-99) mg/dL Calcium (8.4-10.2) mg/dL Alkaline Phosphatase (38-126) U/L Total Protein (6.3-8.2) g/dL Albumin (3.5-5.0) g/dL Prealbumin <5.0 L (18.0-42.0) mg/dL 01/03/18 01/03/18 01/03/18 Range/Units 01:52 05:48 07:14 WBC 19.4 H (3.8-10.6) k/uL RBC 2.93 L (3.80-5.40) m/uL Hgb 7.9 L (11.4-16.0) gm/dL Hct 25.4 L (34.0-46.0) % MCHC 30.9 L (31.0-37.0) g/dL RDW 15.6 H (11.5-15.5) % Plt Count 792 H (150-450) k/uL Neutrophils # 15.8 H (1.3-7.7) k/uL Eosinophils # 1.0 H (0-0.7) k/uL Sodium (137-145) mmol/L Potassium (3.5-5.1) mmol/L Chloride (98-107) mmol/L POC Glucose (mg/dL) 116 H 100 H (75-99) mg/dL Calcium (8.4-10.2) mg/dL Alkaline Phosphatase (38-126) U/L Total Protein (6.3-8.2) g/dL Albumin (3.5-5.0) g/dL Prealbumin (18.0-42.0) mg/dL 01/03/18 Range/Units 07:14 WBC (3.8-10.6) k/uL RBC (3.80-5.40) m/uL Hgb (11.4-16.0) gm/dL Hct (34.0-46.0) % MCHC (31.0-37.0) g/dL RDW (11.5-15.5) % Plt Count (150-450) k/uL Neutrophils # (1.3-7.7) k/uL Eosinophils # (0-0.7) k/uL Sodium 134 L (137-145) mmol/L Potassium 3.2 L (3.5-5.1) mmol/L Chloride 97 L (98-107) mmol/L POC Glucose (mg/dL) (75-99) mg/dL Calcium 8.1 L (8.4-10.2) mg/dL Alkaline Phosphatase 297 H (38-126) U/L Total Protein 4.9 L (6.3-8.2) g/dL Albumin 2.1 L (3.5-5.0) g/dL Prealbumin (18.0-42.0) mg/dL Microbiology - Last 24 Hours (Table) 01/01/18 21:38 Blood Culture - Preliminary Blood No Growth after 24 hours Assessment and Plan Plan: Assessment: #1. Multivessel coronary artery disease, involving left main coronary artery. Status post coronary artery bypass grafting. Postoperative day #23 #2. Acute sepsis secondary to an acute perforated viscus with necrosis of the transverse and right colon and the patient is status post right colectomy, transverse colectomy and takedown of splenic flexure with ileostomy. Wound VAC in place Postoperative day #14 #3. Acute hypoxic respiratory failure secondary to above, recovered. There is no clear evidence of ARDS. #4. Diabetes mellitus 2 #5. Obesity #6. Peripheral vascular disease #7. History of nicotine dependence, currently in remission, quit 10 years ago, carries [id number] smoking history #8. Hypothyroidism #9. Paroxysmal atrial fibrillation, currently in sinus rhythm #10. Chronic low back pain #11. Depression #12. Urinary tract infection secondary to E. coli, follow-up culture negative #13. Hypertension. Plan: Continue current medical treatment, infectious disease is following regards to antibiotic management, minimal output from the wound VAC, patient denies any shortness of breath, pain is under control. Continue encouraging deep breathing and coughing, incentive spirometry use. Today's chest x-ray has been reviewed, minimal atelectasis and pleural effusions. She is on room air. PTOT is on consult, discharge planning is in progress, anticipate discharge to subacute rehab soon. I performed a history & physical examination of the patient and discussed their management with my nurse practitioner, Cassandra Gaona. I reviewed the nurse practitioner's note and agree with the documented findings and plan of care. Lung sounds are positive for bibasilar crackles. The findings and the impression was discussed with the patient. I attest to the documentation by the nurse practitioner. Time with Patient: Less than 30
[2018-01-03] MEDS: CYANOCOBALAMIN 500 MCG TAB PO SCH (12:02)
[2018-01-03] MEDS: ASCORBIC ACID 500 MG TAB PO SCH (12:02)
[2018-01-03] MEDS: amLODIPine 5 MG TAB PO SCH (12:02)
[2018-01-03] MEDS: FERROUS SULFATE 325 MG TAB PO SCH (12:03)
[2018-01-03 12:09] LABS: Glucose,Whole Blood 130 mg/dL (75-99)
--- NOTE | 2018-01-03 16:42 | P.PN ---
Subjective Progress Note Date: 01/03/18 This is a pleasant 72-year-old female patient with coronary artery disease, critical left main disease and preserved left ventricular function. She has history of hypertension, hyperlipidemia, and paroxysmal atrial fibrillation. We are following her postoperatively. She underwent urgent quadruple coronary artery bypass grafting with CHARLES to the diagonal coronary artery and left anterior descending artery, reverse greater saphenous cream vein graft to the first and third OM coronary arteries. Postoperatively, patient spiked a 102 temperature. Lactic acid level was high she was found to have E. coli in her urine. She is being followed by infectious disease. She is being treated with IV antibiotics. She also underwent CT of the abdomen which showed mild wall thickening and pericolonic stranding right hemicolon at the level of the cecum which may reflect nonspecific colitis. on the , patient developed abdominal discomfort associated with severe diarrhea. Chest x -ray showed pneumoperitoneum and subsequent computed tomography scan of the abdomen showed pneumoperitoneum. Patient was taken to the OR emergently and underwent colectomy with colostomy. Abdominal wall wound with wound VAC in place. She is anticipating transfer to select specialty today. Upon examination, patient is sitting up in a reclining chair. She is feeling quite well today. Her pain is well-controlled. She denies complaints of shortness of breath, palpitations or dizziness. Objective - Vital Signs Vital signs: Vital Signs Temp 97.0 F L 01/03/18 12:00 Pulse 70 01/03/18 16:18 Resp 18 01/03/18 12:00 BP 118/64 01/03/18 12:00 Pulse Ox 95 01/03/18 12:00 Intake & Output 01/02/18 01/03/18 01/03/18 18:59 06:59 18:59 Intake Total 957 550 Output Total 300 375 Balance 657 -375 550 Weight 88.1 kg 88.1 kg Intake: IV 30 Invasive Line 1 30 Oral 927 550 Output: Urine 375 Straight 375 Post Void Residual 0 Stool 300 Other: Voiding Method Incontinent Diaper Incontinent # Voids 1 2 1 ABP, PAP, CO, CI - Last Documented Arterial Blood Pressure 159/93 Pulmonary Artery Pressure 4/4 Cardiac Output 4.5 Cardiac Index 2.5 - Exam PHYSICAL EXAMINATION: HEENT: [Head is atraumatic, normocephalic. Pupils equal, round. Neck is supple. There is no elevated jugular venous pressure.] HEART EXAMINATION: [Heart sounds regular, S1 and S2 normal. No murmur or gallop heard.] CHEST EXAMINATION:[ Lungs reveal diminished air entry throughout. No chest wall tenderness is noted on palpation or with deep breathing. Midsternal incision with dressing dry and intact.] ABDOMEN: [ Soft, tender. Bowel sounds are absent. right-sided colostomy and mid lower abdominal wound VAC in place]. EXTREMITIES:[ 2+ peripheral pulses with no evidence of peripheral edema and no calf tenderness noted. Knee-high KURT hose and sequential compression devices in place bilaterally to lower extremities]. NEUROLOGIC [patient is awake, alert and oriented x2.] . - Labs CBC & Chem 7: 01/03/18 07:14 01/03/18 07:14 Labs: Abnormal Lab Results - Last 24 Hours (Table) 01/02/18 01/02/18 01/03/18 Range/Units 17:07 20:43 01:52 WBC (3.8-10.6) k/uL RBC (3.80-5.40) m/uL Hgb (11.4-16.0) gm/dL Hct (34.0-46.0) % MCHC (31.0-37.0) g/dL RDW (11.5-15.5) % Plt Count (150-450) k/uL Neutrophils # (1.3-7.7) k/uL Eosinophils # (0-0.7) k/uL Sodium (137-145) mmol/L Potassium (3.5-5.1) mmol/L Chloride (98-107) mmol/L POC Glucose (mg/dL) 143 H 157 H 116 H (75-99) mg/dL Calcium (8.4-10.2) mg/dL Alkaline Phosphatase (38-126) U/L Total Protein (6.3-8.2) g/dL Albumin (3.5-5.0) g/dL 01/03/18 01/03/18 01/03/18 Range/Units 05:48 07:14 07:14 WBC 19.4 H (3.8-10.6) k/uL RBC 2.93 L (3.80-5.40) m/uL Hgb 7.9 L (11.4-16.0) gm/dL Hct 25.4 L (34.0-46.0) % MCHC 30.9 L (31.0-37.0) g/dL RDW 15.6 H (11.5-15.5) % Plt Count 792 H (150-450) k/uL Neutrophils # 15.8 H (1.3-7.7) k/uL Eosinophils # 1.0 H (0-0.7) k/uL Sodium 134 L (137-145) mmol/L Potassium 3.2 L (3.5-5.1) mmol/L Chloride 97 L (98-107) mmol/L POC Glucose (mg/dL) 100 H (75-99) mg/dL Calcium 8.1 L (8.4-10.2) mg/dL Alkaline Phosphatase 297 H (38-126) U/L Total Protein 4.9 L (6.3-8.2) g/dL Albumin 2.1 L (3.5-5.0) g/dL 01/03/18 Range/Units 11:49 WBC (3.8-10.6) k/uL RBC (3.80-5.40) m/uL Hgb (11.4-16.0) gm/dL Hct (34.0-46.0) % MCHC (31.0-37.0) g/dL RDW (11.5-15.5) % Plt Count (150-450) k/uL Neutrophils # (1.3-7.7) k/uL Eosinophils # (0-0.7) k/uL Sodium (137-145) mmol/L Potassium (3.5-5.1) mmol/L Chloride (98-107) mmol/L POC Glucose (mg/dL) 130 H (75-99) mg/dL Calcium (8.4-10.2) mg/dL Alkaline Phosphatase (38-126) U/L Total Protein (6.3-8.2) g/dL Albumin (3.5-5.0) g/dL Microbiology - Last 24 Hours (Table) 01/01/18 21:38 Blood Culture - Preliminary Blood No Growth after 24 hours Assessment and Plan Assessment: #1 coronary artery disease #2 status post CABG 4 #3 diabetes #4 hyperlipidemia #5 hypertension #6 paroxysmal atrial fibrillation #7 perforated viscus #8 status post colectomy and colostomy Plan: From shipping services sales representative perspective, medications were reviewed and we will continue the same. If patient remains inpatient we will continue to follow and provide further recommendations accordingly. Otherwise will follow-up as an outpatient. Lasix may be changed to by mouth. CALL CENTER ANALYST note has been reviewed, I agree with a documented findings and plan of care. Patient was seen and examined.
[2018-01-03 17:28] LABS: Glucose,Whole Blood 92 mg/dL (75-99)
--- NOTE | 2018-01-03 19:47 | PN ---
PROGRESS NOTE DATE OF SERVICE: 01/03/2018 PRESENTING COMPLAINT: Tired. INTERVAL HISTORY: Patient is status post CABG followed by ischemic bowel and bowel perforation; has a resulting ileostomy and a wound V.A.C. Today the patient continues to improve slowly. She did walk up to the door and back. Brown stool in the ileostomy bag. Feels more perked up. Breathing is stable. REVIEW OF SYSTEMS: Done for constitutional, cardiovascular, GI, pulmonary; relevant findings as above. CURRENT MEDICATIONS: Reviewed. They include DuoNeb, antifungals, Plavix, IV Lasix 20 q.8, IV meropenem, vancomycin. PHYSICAL EXAMINATION: Temperature 97, pulse 70, respiration 18, blood pressure 118/64, pulse ox 95% on room air. GENERAL APPEARANCE: Propped up in a chair, awake. EYES: Pupils equal. Conjunctivae pale. HEENT: External appearance of nose and ears normal. Oral cavity normal. NECK: JVD unable to assess. Mass not palpable. RESPIRATORY: Effort increased. LUNGS: Decreased breath sounds. CARDIOVASCULAR: First and second sounds normal. Some edema is present. ABDOMEN: Soft, nontender. Ileostomy bag present with brown stool. Wound V.A.C. in place. PSYCHIATRY: Alert and oriented x3. Mood and affect normal. INVESTIGATIONS: White count 19.4, hemoglobin 7.9, platelets 792. Potassium 3.2. BUN and creatinine are normal. ASSESSMENT: 1. Coronary artery disease, status post coronary artery bypass on December 11. 2. Acute ischemic bowel with perforation and right transverse colectomy and takedown of splenic flexure with resultant ileostomy. 3. Wound V.A.C. 4. Acute hypoxic respiratory failure, status post ventilator support, on nasal cannula. 5. Hypertensive and septic shock, now recovered. 6. Paroxysmal atrial fibrillation, now in sinus rhythm. 7. Peripheral arterial disease. 8. Hypothyroid. 9. Diabetes mellitus, type 2. 10.Chronic low back pain from arthritis. 11.Depression not otherwise specified. 12.Obesity; body mass index 34.3. 13.Acute blood loss anemia expected from surgery and hospital-acquired from blood draws. 14.Hyperlipidemia. 15.Hypoalbuminemia as an acute phase reactant. 16.Bilateral pleural effusion, post-surgical. 17.Essential hypertension. 18.Elevated white count. PLAN: Continue current medication and treatment plan. Continue current antibiotics. Discussed with Dr. Coburn. Will switch the patient to p.o. Lasix 40 mg b.i.d. The patient slowly continues to improve. Will follow. GUERLINE / ALONAN: [id number] /
[2018-01-03 20:49] LABS: Glucose,Whole Blood 141 mg/dL (75-99)
--- NOTE | 2018-01-03 23:21 | P.PN ---
Subjective Progress Note Date: 01/03/18 This is a 72-year-old female patient who initially underwent a stress test that was positive followed by a heart catheterization that showed significant disease in the left main, mid LAD and ostial circumflex. She then underwent an urgent CABG 4 vessel on December 11. Patient seems to have been recovering well until yesterday. She was noted to develop a fever of 102.6, lactic acid was 2.3 and also liver enzymes elevated. She had been treated for E. coli urinary tract infection that was present on admission with Rocephin. Her antibiotics were then changed to Zosyn and vancomycin. Patient also had some hypersomnolence and confusion yesterday for which her narcotics were changed from oxycodone which she chronically takes for back pain and switched to [place] every 6, IV Tylenol and Toradol and patient continues to have significant back pain. She denies chest pain, shortness of breath, nausea or vomiting. She denies any diarrhea. She does have decreased appetite which is been going on since admission. She states that she feels better from yesterday and recognizes that she was lethargic yesterday. Today. she has been up for shower and has had a bowel movement. Patient had low urine output yesterday and received a dose of Lasix. She had a CAT scan of the brain that showed cerebral atrophy and chronic small vessel ischemia. No acute intracranial process. She states that she was coughing a lot this morning but no denies shortness of breath. Chest x-ray from this morning shows minimal pulmonary vascular congestion cannot be exaggerated by low lung volumes in addition to persistent unchanged retrocardiac airspace disease, likely atelectasis and trace pleural effusions. Patient was using incentive spirometer 2000 mL she yesterday. She has had no significant wound concerns. Chest tubes and Almaguer are out. Patient denies any burning or pain with urination. . Now back in the intensive care unit she's had some abdominal pain and with worsening of her status including lactic acidosis to was concerns to ischemic colitis. She has been seen by surgery is being closely followed. She is on antimicrobial therapy with piperacillin tazobactam and vancomycin which would give coverage for ischemic colitis. Severe back pain is modestly controlled at this time. Patient is given a fluid bolus it appears that her lactic acid has dropped from 3.5-1.0. Fluids were also changed from lactated Ringer's to D5/ 0.45% NaCl with 20 mEq of KCl 12/18/2017 patient is sitting up in the chair looking considerably better. She has some clear liquids that she is able to ingest. Abdominal pain is improved. She is not having further fever or hypotension. Lactic acid is improved 12/21/2017 the patient had a significant change of her status and was found evidence of a perforated viscus and consequently the operating room yesterdaywhere exploratory laparotomy was performed, there is evidence of necrosis the transverse colon and of the right colon and consequently colectomy was performed in ileostomy was placed. Postoperatively the patient is now having some improvement. Vasopressor therapy has been held. Oxygenation is stable and she has no new complication. 12/22/2017 patient has had some improvement today that she is extubated and is stable after this has occurred. She is in no vasopressor therapy, has adequate oxygenation and urinary output. He is receiving some peripheral nutrition while her gastrointestinal function recovers. December 24 2017 patient continues to have improvement. Doing well extubated and off vasopressor therapy. Is awaiting recovery of her gastrointestinal function. Abdominal pain is minimal. She's been up in the chair without difficulties and is doing well with her incentive spirometry. 12/25/2017 and further improvement. She's been able to maintain her extubated status and other than complaints of ongoing severe back pain that has been a long-standing problem continued to have improvement. Initially her pain is worse today than yesterday. Primary service is trying to reduce her medications. 12/27/2017 patient has further improvement. Pain is more comfortable today. Less complaints of pain. Padded well sitting up in a chair. Breathing is going well and is denying much discomfort at this time. 01/03/2018 the patient is much more comfortable on the last evaluation. Sitting up in the chair relating that her severe pain is under good control at this time. She's been able to ambulate in her room with a walker to the doorway which is considerably improved from 4 days ago. She still extremely weak but is denying fevers or chills. Her appetite is improved and she denies nausea or emesis. Objective - Vital Signs Vital signs: Vital Signs Temp 98.3 F 01/03/18 20:00 Pulse 72 01/03/18 20:28 Resp 17 01/03/18 20:00 BP 96/57 01/03/18 20:00 Pulse Ox 98 01/03/18 20:00 Intake & Output 01/03/18 01/03/18 01/04/18 06:59 18:59 06:59 Intake Total 670 Output Total 375 Balance -375 670 Weight 88.1 kg 88.1 kg Intake: Oral 670 Output: Urine 375 Straight 375 Other: Voiding Method Diaper Diaper Incontinent Incontinent # Voids 2 1 ABP, PAP, CO, CI - Last Documented Arterial Blood Pressure 159/93 Pulmonary Artery Pressure 4/4 Cardiac Output 4.5 Cardiac Index 2.5 - Exam Gen: This is a 72-year-old female. supine she is extubated and comfortable HEENT: Head is atraumatic, normocephalic. Pupils equal, round. Sclerae is anicteric. Mucous members of the mouth are moist. NECK: Supple. No JVD. No lymphadenopathy. No thyromegaly. LUNGS: Clear to auscultation. No wheezes or rhonchi. No intercostal retractions. HEART: Regular rate and rhythm. No murmur. Sternal wound is intact. No significant drainage, erythema. ABDOMEN: recent surgery ileostomy in place large amount of bilious material is noted. Bowel sounds are quiet. EXTREMITIES: No pedal edema. Wound and left lower extremity shows no signs of infection. No drainage, significant erythema or edema. NEUROLOGICAL: Patient is awake alert and interactive Skin the surgical site the chest wall is intact without erythema crepitance or fluctuance vein harvest site is intact. abdominal incision has the wound VAC in place and it' is functioning well - Labs CBC & Chem 7: 01/03/18 07:14 01/03/18 07:14 Labs: Abnormal Lab Results - Last 24 Hours (Table) 01/03/18 01/03/18 01/03/18 Range/Units 01:52 05:48 07:14 WBC 19.4 H (3.8-10.6) k/uL RBC 2.93 L (3.80-5.40) m/uL Hgb 7.9 L (11.4-16.0) gm/dL Hct 25.4 L (34.0-46.0) % MCHC 30.9 L (31.0-37.0) g/dL RDW 15.6 H (11.5-15.5) % Plt Count 792 H (150-450) k/uL Neutrophils # 15.8 H (1.3-7.7) k/uL Eosinophils # 1.0 H (0-0.7) k/uL Sodium (137-145) mmol/L Potassium (3.5-5.1) mmol/L Chloride (98-107) mmol/L POC Glucose (mg/dL) 116 H 100 H (75-99) mg/dL Calcium (8.4-10.2) mg/dL Alkaline Phosphatase (38-126) U/L Total Protein (6.3-8.2) g/dL Albumin (3.5-5.0) g/dL 01/03/18 01/03/18 01/03/18 Range/Units 07:14 11:49 20:48 WBC (3.8-10.6) k/uL RBC (3.80-5.40) m/uL Hgb (11.4-16.0) gm/dL Hct (34.0-46.0) % MCHC (31.0-37.0) g/dL RDW (11.5-15.5) % Plt Count (150-450) k/uL Neutrophils # (1.3-7.7) k/uL Eosinophils # (0-0.7) k/uL Sodium 134 L (137-145) mmol/L Potassium 3.2 L (3.5-5.1) mmol/L Chloride 97 L (98-107) mmol/L POC Glucose (mg/dL) 130 H 141 H (75-99) mg/dL Calcium 8.1 L (8.4-10.2) mg/dL Alkaline Phosphatase 297 H (38-126) U/L Total Protein 4.9 L (6.3-8.2) g/dL Albumin 2.1 L (3.5-5.0) g/dL Microbiology - Last 24 Hours (Table) 01/01/18 21:38 Blood Culture - Preliminary Blood No Growth after 24 hours Laboratory Results WBC 19.4 k/uL (3.8-10.6) H 01/03/18 07:14 RBC 2.93 m/uL (3.80-5.40) L 01/03/18 07:14 Hgb 7.9 gm/dL (11.4-16.0) L 01/03/18 07:14 Hct 25.4 % (34.0-46.0) L 01/03/18 07:14 MCV 86.9 fL (80.0-100.0) 01/03/18 07:14 MCH 26.8 pg (25.0-35.0) 01/03/18 07:14 MCHC 30.9 g/dL (31.0-37.0) L 01/03/18 07:14 RDW 15.6 % (11.5-15.5) H 01/03/18 07:14 Plt Count 792 k/uL (150-450) H 01/03/18 07:14 Neutrophils % 82 % 01/03/18 07:14 Neutrophils % (Manual) 75 % 12/20/17 04:30 Band Neutrophils % 7 % 12/20/17 04:30 Lymphocytes % 7 % 01/03/18 07:14 Lymphocytes % (Manual) 7 % 12/20/17 04:30 Monocytes % 4 % 01/03/18 07:14 Monocytes % (Manual) 5 % 12/20/17 04:30 Eosinophils % 5 % 01/03/18 07:14 Eosinophils % (Manual) 2 % 12/20/17 04:30 Basophils % 1 % 01/03/18 07:14 Metamyelocytes % 3 % 12/20/17 04:30 Myelocytes % 3 % 12/20/17 04:30 Neutrophils # 15.8 k/uL (1.3-7.7) H 01/03/18 07:14 Neutrophils # (Manual) 11.70 k/uL (1.3-7.7) H 12/20/17 04:30 Lymphocytes # 1.4 k/uL (1.0-4.8) 01/03/18 07:14 Lymphocytes # (Manual) 1.00 k/uL (1.0-4.8) 12/20/17 04:30 Monocytes # 0.8 k/uL (0-1.0) 01/03/18 07:14 Monocytes # (Manual) 0.72 k/uL (0-1.0) 12/20/17 04:30 Eosinophils # 1.0 k/uL (0-0.7) H 01/03/18 07:14 Eosinophils # (Manual) 0.29 k/uL (0-0.7) 12/20/17 04:30 Basophils # 0.1 k/uL (0-0.2) 01/03/18 07:14 Metamyelocytes # (Man) 0.43 k/uL (0) H 12/20/17 04:30 Myelocytes # (Manual) 0.43 k/uL (0) H 12/20/17 04:30 Nucleated RBCs 0 /100 WBC (0-0) 12/20/17 04:30 Manual Slide Review Performed 12/22/17 04:23 Toxic Granulation Present 12/22/17 04:23 Large Platelets Present 12/18/17 04:30 RBC Morphology Normal 12/11/17 16:55 Polychromasia Present 12/20/17 04:30 Hypochromasia Marked 01/03/18 07:14 Poikilocytosis Slight 01/03/18 07:14 Poikilocytosis (manual Present 12/18/17 04:30 Anisocytosis Slight 12/26/17 04:15 PT 9.9 sec (9.0-12.0) 12/25/17 08:48 INR 1.0 (<1.2) 12/25/17 08:48 APTT 49.0 sec (22.0-30.0) H 12/19/17 04:14 Sample Site kamas 12/22/17 10:36 ABG pH 7.42 (7.35-7.45) 12/22/17 10:36 ABG pCO2 26 mmHg (35-45) L 12/22/17 10:36 ABG pO2 100 mmHg (83-108) 12/22/17 10:36 ABG HCO3 17 mmol/L (21-25) L 12/22/17 10:36 ABG Total CO2 18 mmol/L (19-24) L 12/22/17 10:36 ABG O2 Saturation 98.3 % (94-97) H 12/22/17 10:36 ABG Base Excess -7.4 mmol/L 12/22/17 10:36 ABG Hematocrit 20 % (34.0-46.0) L* 12/11/17 12:13 [place] Test Yes 12/22/17 04:10 ABG Sodium 136 mmol/L (135-146) 12/11/17 12:13 ABG Potassium 4.4 mmol/L (3.4-4.5) 12/11/17 12:13 ABG Ionized Calcium 4.2 mg/dL (4.5-5.3) L 12/11/17 12:13 ABG Glucose 204 mg/dL (75-99) H 12/11/17 12:13 ABG Lactic Acid 0.9 mmol/L (0.5-1.6) 12/21/17 04:30 Hemoglobin 6.4 gm/dL (11.4-16.0) L* 12/11/17 12:13 FiO2 40 % 12/22/17 10:36 Sodium 134 mmol/L (137-145) L 01/03/18 07:14 Potassium 3.2 mmol/L (3.5-5.1) L 01/03/18 07:14 Chloride 97 mmol/L (98-107) L 01/03/18 07:14 Carbon Dioxide 30 mmol/L (22-30) 01/03/18 07:14 Anion Gap 7 mmol/L 01/03/18 07:14 BUN 12 mg/dL (7-17) 01/03/18 07:14 Creatinine 0.61 mg/dL (0.52-1.04) 01/03/18 07:14 Est GFR (CKD-EPI)AfAm >90 (>60 ml/min/1.73 sqM) 01/03/18 07:14 Est GFR (CKD-EPI)NonAf >90 (>60 ml/min/1.73 sqM) 01/03/18 07:14 Glucose 88 mg/dL (74-99) 01/03/18 07:14 POC Glucose (mg/dL) 141 mg/dL (75-99) H 01/03/18 20:48 POC Glu Water Pipe Installer ID Melissa Heck 01/03/18 20:[address] Glu mg/dL 186 12/08/17 06:55 Hemoglobin A1c 8.1 % (4.0-6.0) H 12/08/17 06:55 Lactic Ac Sepsis Rflx Y 12/15/17 10:17 Plasma Lactic Acid [place] 0.7 mmol/L (0.7-2.0) 12/22/17 09:15 Calcium 8.1 mg/dL (8.4-10.2) L 01/03/18 07:14 Ionized Calcium [place] 5.3 mg/dL (4.5-5.3) 12/27/17 06:18 Phosphorus 2.8 mg/dL (2.5-4.5) 01/03/18 07:14 Magnesium 1.7 mg/dL (1.6-2.3) 01/03/18 07:14 Total Bilirubin 0.4 mg/dL (0.2-1.3) 01/03/18 07:14 AST 21 U/L (14-36) 01/03/18 07:14 ALT 29 U/L (9-52) 01/03/18 07:14 Alkaline Phosphatase 297 U/L (38-126) H 01/03/18 07:14 Total Protein 4.9 g/dL (6.3-8.2) L 01/03/18 07:14 Albumin 2.1 g/dL (3.5-5.0) L 01/03/18 07:14 Prealbumin <5.0 mg/dL (18.0-42.0) L 12/31/17 06:31 Triglycerides 171 mg/dL (<150) H 12/23/17 04:32 Cholesterol 129 mg/dL (<200) 12/08/17 06:55 LDL Cholesterol, Calc 45 mg/dL (0-99) 12/08/17 06:55 HDL Cholesterol 66 mg/dL (40-60) H 12/08/17 06:55 Amylase <30 U/L (30-110) L 12/14/17 15:37 Lipase 25 U/L (23-300) 12/14/17 15:37 TSH 2.940 mIU/L (0.465-4.680) 12/08/17 06:55 Arterial Blood Potassium 4.4 mmol/L (3.4-4.5) 12/11/17 12:13 Arterial Blood Glucose 204 mg/dL (75-99) H 12/11/17 12:13 Urine Color Light Yellow 12/30/17 08:30 Urine Appearance Clear (Clear) 12/30/17 08:30 Urine pH 6.5 (5.0-8.0) 12/30/17 08:30 Ur Specific [place] 1.008 (1.001-1.035) 12/30/17 08:30 Urine Protein Trace (Negative) H 12/30/17 08:30 Urine Glucose (UA) Negative (Negative) 12/30/17 08:30 Urine Ketones Negative (Negative) 12/30/17 08:30 Urine Blood Negative (Negative) 12/30/17 08:30 Urine Nitrite Negative (Negative) 12/30/17 08:30 Urine Bilirubin Negative (Negative) 12/30/17 08:30 Urine Urobilinogen <2.0 mg/dL (<2.0) 12/30/17 08:30 Ur Leukocyte Esterase Trace (Negative) H 12/30/17 08:30 Urine RBC 1 /hpf (0-5) 12/30/17 08:30 Urine WBC 5 /hpf (0-5) 12/30/17 08:30 Ur Squamous Epith Cells <1 /hpf (0-4) 12/30/17 08:30 Urine Bacteria Occasional /hpf (None) H 12/08/17 12:00 Hyaline Casts 1 /lpf (0-2) 12/30/17 08:30 Urine Mucus Rare /hpf (None) H 12/08/17 12:00 Stool Occult Blood Positive (Negative) H 12/16/17 04:45 Stl Cryptosporidium Ag Negative (Negative) 12/15/17 14:15 Stool Giardia Source Stool 12/15/17 14:15 Stl Giardia Antigen Negative (Negative) 12/15/17 14:15 Vancomycin Trough 17.7 ug/mL 12/16/17 08:33 C. difficile (EIA) Intrp Negative (Negative) 12/16/17 10:35 Hepatitis A IgM Ab Non-Reactive (Non-Reactive) 12/08/17 06:55 Hep Bs Antigen Non-Reactive (Non-Reactive) 12/08/17 06:55 Hep B Core IgM Ab Non-Reactive (Non-Reactive) 12/08/17 06:55 Hep C IgG Ab Non-Reactive (Non-Reactive) 12/08/17 06:55 Blood Type B Positive 12/20/17 11:26 Blood Type Confirm B Positive 12/10/17 10:21 Blood Type Recheck No 12/20/17 11:26 Antibody Screen NEGATIVE 12/20/17 11:26 Crossmatch See Detail 12/20/17 11:26 Transfuse Platelets 12/11/17 12/10/17 05:38 Spec Expiration Date 12/23/2017 - 2326 12/20/17 11:26 Microbiology 01/01/18 21:38 Blood Blood Culture - Preliminary No Growth after 24 hours 12/13/17 22:12 Blood Blood Culture - Final No Growth after 144 hours 12/15/17 14:15 Stool Stool Culture - Final 12/12/17 17:00 Urine,Catheterized Urine Culture - Final 12/08/17 12:00 Urine,Clean Catch Urine Culture - Final Escherichia coli 12/08/17 12:00 Nasal Swab Nasal Screen MRSA/MSSA - Final Assessment and Plan (1) E. coli sepsis Narrative/Plan: 72 year old woman with history of CAD failed stress test now s/p CABG and was progressing but developed fever to 102. Found to have UTI and is now improving. He doesn't history of chronic back pain been of some contention over the last day because of excess sedation from her pain medications. She currently is on minimal premedication with orders to ensure that she is at least sitting up and getting some ambulation. Her shortness of breath is definitely improved her chest is without significant pain. She does have a history of urinary tract infections in the past, since the Almaguer is out she has some minimal discomfort but does not feel miserable. She's had difficulty with incontinence since the Almaguer has been removed, bladder scan was performed with only 200 mL noted. She does have a urine culture with Escherichia coli that is resistant to quinolone therapy. With her fever the antibiotic therapy was enhance Zosyn and vancomycin. Sternal wound does not appear to be infected at the moment does not seem to have pneumonia. 12/15/2017 reveals the patient to have a change of her status in that she developed abdominal pain as well as worsening of her status. This concerns to ischemic colitis and she was moved to the intensive care unit. She's been seen by general surgery. It is being monitored. She had worsening lactic acidosis is now showing improvement after fluid challenge. She is not having chest pain and her shortness of breath continues to improve. Blood cultures are negative but urine culture did have E. coli years that she does have significant underlying infection in the urinary system. Treatment has been with Zosyn which should also cover ischemic colitis at that is occurring at this time. There are concerns to bowel compromise possibly for microemboli in the postoperative time frame. With this heparin has been started. Cultures are process and she'll be monitored. Her significant leukocytosis showing some slight improvement. 12/18/2017 the patient is having some improvement. She is not having as much pain and is able to tolerate some oral intake with clear liquids and has had some flatus. Abdominal pain is steadily improved and overall feels better. Leukocytosis is trending to improvement. X-ray shows evidence of some worsening of the hilar edema.there are no new positive cultures on the E. coli has been isolated. Antibiotic therapy with Zosyn to complete 7 days of therapy for her E. coli urinary tract infection. Surgery is following for the transient ischemic colitis she's been anticoagulated, and final plans are being developed as far as her long-term anticoagulation. The lactic acidosis completely resolved. December 21 2017 after the patient had a major change in her statusand was found evidence of ischemic colitis in the transverse and right colon and underwent colectomy and ileostomy placement. She's now having some improvement in her vasopressor therapy has now been put on hold with resolution of the hypotension. Patient seems to be comfortable. With her significant change of status antimicrobial therapy was migrated to meropenem and Eraxis pending culture results.she has a persistent leukocytosis related to the current sepsis which is showing some improvement. She did have profound anemia and was transfused and seems to be stable at this time. No Evidence of any new acute bleeding. 12/22/2017 the patient is now extubated and comfortable. Gastrointestinal function recovery is awaited and peripheral nutrition has been established. Leukocytosis is improving. She no longer is requiring vasopressor therapy. Seems responding well to meropenem and Eraxis and these will continue for now. Patient's family is present and course in therapy are discussed including the need for rehab after discharge. 12/24/2017 patient continued to show improvement. Doing well after her recent surgical intervention. Responding well to antimicrobial therapy with meropenem and Eraxis. We'll plan at least 10 days of antimicrobial therapy regarding her significant sepsis from the ischemic colitis and leak. The profound leukocytosis is improving diminishing to 19.2 from 29.4. Remains afebrile. 12/25/2017 patient remains without fever, her profound leukocytosis continues to decline in overall she's doing considerably better except for complaints of chronic back pain. She's had return of abdominal function and is tolerating her full liquid diet without difficulty. No nausea or emesis occurred. Is working with the primary service as far as her pain control given her history of chronic back pain and chronic narcotic use for this. She is on day 4 of 10 of antibiotic therapy with Merrem and Eraxis for the ischemic perforated colon. 12/27/2017 patient continues to improve. Day 6 of 10 of antibiotic therapy with Merrem and Eraxis for her ischemic perforated colitis. Continues to have improvement discomfort from her back from her arthritis remains her biggest complaint. 01/03/2018 overall the patient is having improvement .Her pain is under better control and she started to have some ability to participate with therapy. She' ll still has a wound VAC in place and is not having difficulties with persistent leukocytosis that has been of some concern. Some alteration of antimicrobial therapy occurred without a significant change of her status. She' s had significant challenges as of late and the GI function has returned after the ischemic perforated colitis. Her leukocytosis is trending to improvement and still has significant evidence of inflammatory parameters with the thrombocytosis and anemia. We'll begin transition of antimicrobial therapy to oral, metronidazole is ready being utilized. Meropenem discontinued and transitioned to Rocephin. The Rocephin metronidazole will give coverage for intra-abdominal infection. Antifungal therapy as transition to fluconazole 100 mg a day. Planning current course of therapy over the next week. Continue negative pressure therapy the abdominal incisions and if possible have her follow in the wound healing Center. Status: Acute Code(s): A41.51 - SEPSIS DUE TO ESCHERICHIA COLI [E. COLI] SNOMED Code(s): 961226615 (2) Urinary tract infection Current Visit: Yes Status: Acute Code(s): N39.0 - URINARY TRACT INFECTION, SITE NOT SPECIFIED SNOMED Code(s): 35865800 (3) Coronary artery disease involving left main coronary artery Current Visit: Yes Status: Chronic Code(s): I25.10 - ATHSCL HEART DISEASE OF [place] CORONARY ARTERY W/O ANG PCTRS SNOMED Code(s): 504344231 (4) Fever Current Visit: Yes Status: Acute Code(s): R50.9 - FEVER, UNSPECIFIED SNOMED Code(s): 190714548
[2018-01-04 02:14] LABS: Glucose,Whole Blood 109 mg/dL (75-99)
[2018-01-04] MEDS: INSULIN ASPART 100 UNIT/ML 1 ML 10 ML VIAL SQ SCH ×5 (02:22→21:42)
[2018-01-04 05:54] LABS: Glucose,Whole Blood 98 mg/dL (75-99)
[2018-01-04] MEDS: LEVOTHYROXINE 75 MCG TAB PO SCH (06:34)
[2018-01-04] MEDS: PANTOPRAZOLE 40 MG TABLET PO SCH (06:34)
[2018-01-04 07:08] LABS: Basophils # (A) 0.1 k/uL (0-0.2); Basophils % (A) 1 %; Eosinophils % (A) 5 %; HCT 27.4 % (34.0-46.0); HGB 8.4 gm/dL (11.4-16.0); Hypochromasia Marked; Lymphocytes # (A) 1.7 k/uL (1.0-4.8); Lymphocytes % (A) 8 %; MCH 26.6 pg (25.0-35.0); MCHC 30.8 g/dL (31.0-37.0); MCV 86.1 fL (80.0-100.0); Mean Platelet Volume 6.8; Monocytes # (A) 0.9 k/uL (0-1.0); Monocytes % (A) 5 %; Neutrophils # (A) 15.9 k/uL (1.3-7.7); Neutrophils % (A) 80 %; Platelet Count 849 k/uL (150-450); Poikilocytosis Slight; RBC 3.18 m/uL (3.80-5.40); RDW 15.5 % (11.5-15.5)
[2018-01-04 07:35] LABS: Anion Gap 6 mmol/L; Blood Urea Nitrogen 10 mg/dL (7-17); Calcium 8.2 mg/dL (8.4-10.2); Carbon Dioxide 30 mmol/L (22-30); Chloride 98 mmol/L (98-107); Glucose 89 mg/dL (74-99); Potassium 3.9 mmol/L (3.5-5.1); Sodium 134 mmol/L (137-145)
[2018-01-04] MEDS: IPRATROPIUM-ALBUTEROL 3 ML NEB INHALATION SCH ×4 (07:48→20:45)
--- NOTE | 2018-01-04 08:02 | XR ---
EXAMINATION TYPE: XR chest 2V DATE OF EXAM: 01/04/2018 COMPARISON: 01/03/2018 INDICATION: Post cardiac surgery TECHNIQUE: Frontal and lateral views of the chest are obtained. FINDINGS: The heart size is normal. The pulmonary vasculature is normal. Mild infiltrate is at the left base. A small to moderate posterior left pleural effusion is present. Some mild atelectasis may be present. IMPRESSION: 1. Small to moderate left posterior pleural effusion with some adjacent atelectasis. 2. Exam is stable from comparison. 3. Continued follow-up is recommended.
[2018-01-04] MEDS: oxyCODONE ER 20 MG TAB.ER.12H PO SCH ×3 (09:31→23:50)
[2018-01-04] MEDS: ATORVASTATIN 40 MG TAB PO SCH (09:31)
[2018-01-04] MEDS: CLOPIDOGREL 75 MG TAB PO SCH (09:31)
[2018-01-04] MEDS: METOPROLOL TARTRATE 25 MG TAB PO SCH ×2 (09:31→21:42)
[2018-01-04] MEDS: HEPARIN SODIUM,PORCINE 5,000 UNIT/ML 1 ML VIAL SQ SCH ×3 (09:31→23:50)
[2018-01-04] MEDS: AMIODARONE 200 MG TAB PO SCH (09:31)
[2018-01-04] MEDS: ASPIRIN 81 MG PO SCH (09:31)
[2018-01-04] MEDS: hydrALAZINE HCL 10 MG TAB PO SCH ×2 (09:31→21:42)
[2018-01-04] MEDS: FUROSEMIDE 40 MG TAB PO SCH ×2 (09:31→15:47)
[2018-01-04] MEDS: DULoxetine HCL 60 MG CAPSULE.DR PO SCH (09:31)
[2018-01-04] MEDS: NYSTATIN 100,000 UNIT/ML SUSP 500,000 UNIT/5 ML CUP PO SCH ×4 (09:32→21:42)
[2018-01-04] MEDS: cefTRIAXone IN SWFI 1,000 MG/10 ML SYRINGE IVP SCH (09:32)
[2018-01-04] MEDS: FLUCONAZOLE 100 MG TAB PO SCH (09:32)
[2018-01-04] MEDS: metroNIDAZOLE 500 MG TAB PO SCH ×3 (09:32→21:42)
[2018-01-04] MEDS ORDERED: VANCOMYCIN TROUGH DUE 1 EACH MISC MISCELLANE ONE (11:00)
--- NOTE | 2018-01-04 11:26 | P.PN ---
Subjective Progress Note Date: 01/04/18 9-year-old female sitting up in a chair bathing states feels stronger this morning increasingly more awake and alert. Currently states there is no abdominal pain no chest pain dizziness or lightheadedness or shortness of breath. Ostomy moderate amount of liquid brown stool noted. Wound VAC system in place. Surgical incision site dry. Patient states she's anxious to go to the rehab center today December 20 right colectomy transverse colectomy, takedown splenic flexure, ileostomy. due to perforated perforated viscus with necrosis of the transverse colon right colon Objective - Vital Signs Vital signs: Vital Signs Temp 97.5 F L 01/04/18 08:40 Pulse 78 01/04/18 08:40 Resp 16 01/04/18 08:40 BP 118/66 01/04/18 08:40 Pulse Ox 94 L 01/04/18 08:40 Intake & Output 01/03/18 01/04/18 01/04/18 18:59 06:59 18:59 Intake Total 670 350 Output Total 350 Balance 670 0 Weight 88.1 kg 88.8 kg Intake: Oral 670 350 Output: Stool 350 Other: Voiding Method Diaper Diaper Incontinent Incontinent # Voids 1 1 ABP, PAP, CO, CI - Last Documented Arterial Blood Pressure 159/93 Pulmonary Artery Pressure 4/4 Cardiac Output 4.5 Cardiac Index 2.5 - Exam Physical exam Awake and alert sitting up in the chair states less abdominal pain this morning reports no nausea no vomiting no dizziness lightheadedness states feels "like I' m getting stronger Lungs room air sats 96% no shortness of breath no cough noted Heart S1-S2 audible denying chest pain Abdomen ostomy moderate amount of stool surgical dressing currently dry wound VAC in place. active bowel tones incontinent urine reports no nausea vomiting reportedly tolerating a diet Extremities below the knee KURT hose on to bilateral lower extremities moderate amount 2+ eating edema lower extremity - Labs CBC & Chem 7: 01/04/18 06:41 01/04/18 06:41 Labs: Abnormal Lab Results - Last 24 Hours (Table) 01/03/18 01/03/18 01/04/18 Range/Units 11:49 20:48 02:12 WBC (3.8-10.6) k/uL RBC (3.80-5.40) m/uL Hgb (11.4-16.0) gm/dL Hct (34.0-46.0) % MCHC (31.0-37.0) g/dL Plt Count (150-450) k/uL Neutrophils # (1.3-7.7) k/uL Eosinophils # (0-0.7) k/uL Sodium (137-145) mmol/L POC Glucose (mg/dL) 130 H 141 H 109 H (75-99) mg/dL Calcium (8.4-10.2) mg/dL 01/04/18 01/04/18 Range/Units 06:41 06:41 WBC 20.0 H (3.8-10.6) k/uL RBC 3.18 L (3.80-5.40) m/uL Hgb 8.4 L (11.4-16.0) gm/dL Hct 27.4 L (34.0-46.0) % MCHC 30.8 L (31.0-37.0) g/dL Plt Count 849 H (150-450) k/uL Neutrophils # 15.9 H (1.3-7.7) k/uL Eosinophils # 1.0 H (0-0.7) k/uL Sodium 134 L (137-145) mmol/L POC Glucose (mg/dL) (75-99) mg/dL Calcium 8.2 L (8.4-10.2) mg/dL Microbiology - Last 24 Hours (Table) 01/01/18 21:38 Blood Culture - Preliminary Blood No Growth after 48 hours Assessment and Plan Assessment: Impression Ischemic colitis resolving stool for C. diff negative Postop diarrhea 9 expected outcome Postop urgent quadruple coronary artery bypass grafting using left internal mammary Echocardiogram preserved LV function Sudden onset of abdominal pain postoperative suspect due to free air. As evident on a CAT scan of the abdomen and pelvis Right colectomy, transverse colectomy, takedown splenic flexure, ileostomy for Perforated viscus done on December 20 Necrosis of transverse colon, right colon and on expected outcome Deconditioned suspect due to prolonged length of stay Leukocytosis present preoperatively Postoperative diarrhea unexpected outcome Postoperative pneumoperitoneum Plan Ileostomy care Ileostomy teaching as appropriate Pain control Wound VAC as ordered Continue postop surgical care care PT OT eval Will follow with you with further recommendations as clinical course indicates From a surgical perspective okay to transfer to subacute rehab The above impression and plan of care have been discussed and directed by signing physician. Missy Baca nurse practitioner acting as scribe for signing physician.
[2018-01-04 11:37] LABS: Glucose,Whole Blood 129 mg/dL (75-99)
[2018-01-04] MEDS: ASCORBIC ACID 500 MG TAB PO SCH (12:19)
[2018-01-04] MEDS: CYANOCOBALAMIN 500 MCG TAB PO SCH (12:19)
[2018-01-04] MEDS: FERROUS SULFATE 325 MG TAB PO SCH (12:19)
--- NOTE | 2018-01-04 12:36 | P.PN ---
Subjective Progress Note Date: 01/04/18 On 01/04/2018 the patient is being seen in follow-up. She is currently on room air. Denies having any respiratory distress. She is ambulating. She is post four-vessel bypass surgery and she is postop day #24 and subsequently the patient had a acute abdomen with free air under the diaphragm rated to bowel necrosis/infarction the patient underwent a right colectomy, transverse colectomy and diverting ileostomy and the patient is postop day #14. No fever. No chills. The patient has adequate bowel activity and ileostomy. The wounds are all clean and the patient has a wound VAC attached to the abdominal wound is being changed periodically. There is minimal output from the wound VAC. She remains hemodynamically stable. No S3 or distress. Sternum is stable clean and intact. The plan is to [facility] this [facility]. Otherwise, she has normal renal function. Site leukocytosis still present. The antibiotic coverage remains a combination of IV Rocephin and Flagyl. Objective - Vital Signs Vital signs: Vital Signs Temp 97.5 F L 01/04/18 08:40 Pulse 82 01/04/18 12:22 Resp 16 01/04/18 11:30 BP 116/54 01/04/18 11:30 Pulse Ox 95 01/04/18 11:30 Intake & Output 01/03/18 01/04/18 01/04/18 18:59 06:59 18:59 Intake Total 670 350 Output Total 350 Balance 670 0 Weight 88.1 kg 88.8 kg Intake: Oral 670 350 Output: Stool 350 Other: Voiding Method Diaper Diaper Incontinent Incontinent # Voids 1 1 ABP, PAP, CO, CI - Last Documented Arterial Blood Pressure 159/93 Pulmonary Artery Pressure 4/4 Cardiac Output 4.5 Cardiac Index 2.5 - Exam - Constitutional General appearance: Present: cooperative, no acute distress, obese - Respiratory Details: Lungs sounds slightly diminished bilaterally. Respirations even, nonlabored. Currently on room air with oxygen saturation 95%. Able to achieve 1250 mL on her incentive spirometry. Strong, nonproductive cough. The sternum stable clean and intact and dry and there is no evidence of any leaks from the wound sites. - Cardiovascular Details: S1, S2 present. Regular rate and rhythm, sinus rhythm on telemetry. Sternum stable. Palpable peripheral pulses bilaterally. Bilateral lower extremity pitting edema present. Right upper basilic vein midline catheter present. Heart hugger in place with patient demonstrating appropriate use. Antiembolism stockings, SCDs present. - Gastrointestinal Gastrointestinal Comment(s): Abdomen soft, nondistended. Active bowel sounds present. Right lower quadrant ileostomy present with dark brown liquid stool. Tolerating diet. The wound VAC is in place and the patient is draining minimal amount of liquid from the wound VAC site. No direct tenderness. No rebound tenderness. No guarding. - Genitourinary Genitourinary Comment(s): Patient remains incontinent of urine but is voiding. - Integumentary Integumentary Comment(s): Skin is warm and dry. Anterior chest incision well approximated with dry intact dressing present. Left lower semi-EVH site well approximated. Midline abdominal incision clean, andrei intact, wound VAC present. - Neurologic Neurologic: Present: CNII-XII intact - Musculoskeletal Musculoskeletal: Present: generalized weakness, strength equal bilaterally - Psychiatric Psychiatric: Present: A&O x's 3, appropriate affect, intact judgment & insight - Labs CBC & Chem 7: 01/04/18 06:41 01/04/18 06:41 Labs: Abnormal Lab Results - Last 24 Hours (Table) 01/03/18 01/04/18 01/04/18 Range/Units 20:48 02:12 06:41 WBC 20.0 H (3.8-10.6) k/uL RBC 3.18 L (3.80-5.40) m/uL Hgb 8.4 L (11.4-16.0) gm/dL Hct 27.4 L (34.0-46.0) % MCHC 30.8 L (31.0-37.0) g/dL Plt Count 849 H (150-450) k/uL Neutrophils # 15.9 H (1.3-7.7) k/uL Eosinophils # 1.0 H (0-0.7) k/uL Sodium (137-145) mmol/L POC Glucose (mg/dL) 141 H 109 H (75-99) mg/dL Calcium (8.4-10.2) mg/dL 01/04/18 01/04/18 Range/Units 06:41 11:35 WBC (3.8-10.6) k/uL RBC (3.80-5.40) m/uL Hgb (11.4-16.0) gm/dL Hct (34.0-46.0) % MCHC (31.0-37.0) g/dL Plt Count (150-450) k/uL Neutrophils # (1.3-7.7) k/uL Eosinophils # (0-0.7) k/uL Sodium 134 L (137-145) mmol/L POC Glucose (mg/dL) 129 H (75-99) mg/dL Calcium 8.2 L (8.4-10.2) mg/dL Microbiology - Last 24 Hours (Table) 01/01/18 21:38 Blood Culture - Preliminary Blood No Growth after 48 hours Assessment and Plan Plan: #1. Multivessel coronary artery disease, involving left main coronary artery. Status post coronary artery bypass grafting. Postoperative day #24 #2. Acute sepsis secondary to an acute perforated viscus with necrosis of the transverse and right colon and the patient is status post right colectomy, transverse colectomy and takedown of splenic flexure with ileostomy. Wound VAC in place Postoperative day #15 #3. Acute hypoxic respiratory failure secondary to above, recovered. The patient is currently on room air oxygen and she has no respiratory difficulties. She is using incentive spirometer. #4. Diabetes mellitus 2 #5. Obesity #6. Peripheral vascular disease #7. History of nicotine dependence, currently in remission, quit 10 years ago, carries [id number] smoking history #8. Hypothyroidism #9. Paroxysmal atrial fibrillation, currently in sinus rhythm #10. Chronic low back pain #11. Depression #12. Urinary tract infection secondary to E. coli, follow-up culture negative, the patient has been appropriately treated #13. Hypertension. #14 abdominal wound and the patient has been attached to a wound VAC Plan Keep same medication. Continue using incentive spirometer. Complete antibiotic course. Wound VAC management and [facility] Patient is tolerating diet. She is on oral Flagyl and IV Rocephin. This is being given for intra-abdominal infection coverage. The antifungal will be switched to Diflucan 100 mg by mouth daily. ID is on the case.
--- NOTE | 2018-01-04 15:07 | P.PN ---
Subjective Progress Note Date: 01/04/18 Principal diagnosis: Coronary artery disease with critical left main disease. Preserved left ventricular function. Previous medical history of hypertension, hyperlipidemia , diabetes mellitus with preoperative hemoglobin A1c 8.1%, hypothyroid, chest granulomatous disease, peripheral vascular disease status post right fem-pop bypass, previous tobacco dependence with preoperative FEV1 109% of predicted in November 2016, recent fall in June 2017 with torn right rotator cuff, questionable DVT with previous Coumadin use greater than 2 years ago, syncopal episodes, history of paroxysmal atrial fibrillation, chronic low back pain, obesity, depression and preoperative E. coli urinary tract infection. POD #24 urgent quadruple coronary artery bypass grafting using the left internal mammary artery sequentially to the diagonal coronary artery and to the left anterior descending coronary artery, a reverse greater saphenous vein graft from the aorta to the first obtuse marginal coronary artery, a reverse greater saphenous vein graft from the aorta to the third obtuse marginal coronary artery. Bilateral pulmonary vein isolation using the AtriCure radiofrequency clamp. Exclusion of the left atrial appendage using a 35 mm AtriClip. Intraoperative transesophageal echocardiogram and epi-aortic scanning. POD #14 right colectomy, transverse colectomy, takedown splenic flexure, ileostomy performed by Dr. Montoya Postoperative elevation in transaminases, an unexpected outcome, resolving. Leukocytosis, present preoperatively. Postoperative diarrhea, an unexpected outcome. Postoperative normochromic, normocytic anemia, an expected outcome of surgery secondary to cardiopulmonary bypass and hemodilution. Postoperative urinary retention, an unexpected outcome. Postoperative pneumoperitoneum, an unexpected outcome. Necrosis of the transverse colon, right colon and unexpected outcome. Sepsis, septic shock, an unexpected outcome. Postoperative prolonged mechanical ventilation, needed to be reintubated for second surgery, an unexpected outcome. Postoperative left-sided pleural effusion, an unexpected outcome of surgery. Resolving. The patient is currently sitting up to the bedside chair. She is in no acute distress. Denies any complaints of pain or shortness of breath at this time. She is alert and oriented 3. Wound VAC dressing remains clean dry and intact to her abdominal wounds. Ileostomy is putting out loose brown stool. She is tolerating oral intake without complaints of any nausea, reports her appetite is improving. She remains having generalized weakness, working with physical therapy, she reports she ambulated in her room to the doorway 3 times yesterday. Her WBC count is 20.0 today, hemoglobin 8.4, and platelets 849. She remains afebrile and is currently on Rocephin, Diflucan and Flagyl managed by infectious disease. Objective - Vital Signs Vital signs: Vital Signs Temp 97.5 F L 01/04/18 08:40 Pulse 82 01/04/18 12:22 Resp 16 01/04/18 11:30 BP 116/54 01/04/18 11:30 Pulse Ox 95 01/04/18 11:30 Intake & Output 01/03/18 01/04/18 01/04/18 18:59 06:59 18:59 Intake Total 670 350 Output Total 350 Balance 670 0 Weight 88.1 kg 88.8 kg Intake: Oral 670 350 Output: Stool 350 Other: Voiding Method Diaper Diaper Incontinent Incontinent # Voids 1 1 ABP, PAP, CO, CI - Last Documented Arterial Blood Pressure 159/93 Pulmonary Artery Pressure 4/4 Cardiac Output 4.5 Cardiac Index 2.5 - Constitutional General appearance: Present: cooperative, no acute distress, obese - Respiratory Details: Lungs sounds are essentially clear throughout, diminished to her bilateral bases left greater than right. Respirations are symmetrical and nonlabored. Oxygen saturation are 95% on room air. She is achieving 3036-6332 mL on her incentive spirometry. - Cardiovascular Details: Regular rhythm and rate. S1 and S2 present, negative for S3, gallop or murmur. Sternum is stable. Remote telemetry showing normal sinus rhythm heart rate 87. Heart hugger is in place and she is demonstrating appropriate use. Right upper arm basilic vein midline catheter in place and functioning. Knee-high KURT hose and sequential compression devices in place to her bilateral lower extremities. - Gastrointestinal Gastrointestinal Comment(s): Abdomen soft, nontender and nondistended. Active bowel sounds all 4 abdominal quadrants. Right lower quadrant ileostomy present with brown loose stool. Tolerating oral intake. - Genitourinary Genitourinary Comment(s): Remains having episodes of incontinence. Voiding clear noah urine. 350 mL output in the last 8 hours. - Neurologic Neurologic: Present: CNII-XII intact - Musculoskeletal Musculoskeletal: Present: gait normal, generalized weakness, strength equal bilaterally - Psychiatric Psychiatric: Present: A&O x's 3, appropriate affect, intact judgment & insight - Allied health notes Allied health notes reviewed: nursing - Labs CBC & Chem 7: 01/04/18 06:41 01/04/18 06:41 Labs: Abnormal Lab Results - Last 24 Hours (Table) 01/03/18 01/04/18 01/04/18 Range/Units 20:48 02:12 06:41 WBC 20.0 H (3.8-10.6) k/uL RBC 3.18 L (3.80-5.40) m/uL Hgb 8.4 L (11.4-16.0) gm/dL Hct 27.4 L (34.0-46.0) % MCHC 30.8 L (31.0-37.0) g/dL Plt Count 849 H (150-450) k/uL Neutrophils # 15.9 H (1.3-7.7) k/uL Eosinophils # 1.0 H (0-0.7) k/uL Sodium (137-145) mmol/L POC Glucose (mg/dL) 141 H 109 H (75-99) mg/dL Calcium (8.4-10.2) mg/dL 01/04/18 01/04/18 Range/Units 06:41 11:35 WBC (3.8-10.6) k/uL RBC (3.80-5.40) m/uL Hgb (11.4-16.0) gm/dL Hct (34.0-46.0) % MCHC (31.0-37.0) g/dL Plt Count (150-450) k/uL Neutrophils # (1.3-7.7) k/uL Eosinophils # (0-0.7) k/uL Sodium 134 L (137-145) mmol/L POC Glucose (mg/dL) 129 H (75-99) mg/dL Calcium 8.2 L (8.4-10.2) mg/dL Microbiology - Last 24 Hours (Table) 01/01/18 21:38 Blood Culture - Preliminary Blood No Growth after 48 hours - Imaging and Cardiology Chest x-ray: report reviewed, image reviewed Assessment and Plan (1) Diarrhea in adult patient Current Visit: Yes Status: Acute Code(s): R19.7 - DIARRHEA, UNSPECIFIED SNOMED Code(s): 70365210 (2) Chronic low back pain Current Visit: Yes Status: Chronic Code(s): M54.5 - LOW BACK PAIN; G89.29 - OTHER CHRONIC PAIN SNOMED Code(s): 975722230 (3) Coronary artery disease involving left main coronary artery Current Visit: Yes Status: Chronic Code(s): I25.10 - ATHSCL HEART DISEASE OF [place] CORONARY ARTERY W/O ANG PCTRS SNOMED Code(s): 007441560 (4) Diabetes Current Visit: Yes Status: Chronic Code(s): E11.9 - TYPE 2 DIABETES MELLITUS WITHOUT COMPLICATIONS SNOMED Code(s): 37559158 (5) Family history of heart disease Current Visit: Yes Status: Chronic Code(s): Z82.49 - FAMILY HX OF ISCHEM HEART DIS AND OTH DIS OF THE CIRC SYS SNOMED Code(s): 574529819 (6) Hyperlipidemia Current Visit: Yes Status: Chronic Code(s): E78.5 - HYPERLIPIDEMIA, UNSPECIFIED SNOMED Code(s): 64284661 (7) Hypertension Current Visit: Yes Status: Chronic Code(s): I10 - ESSENTIAL (PRIMARY) HYPERTENSION SNOMED Code(s): 02120625 (8) Hypothyroid Current Visit: Yes Status: Chronic Code(s): E03.9 - HYPOTHYROIDISM, UNSPECIFIED SNOMED Code(s): 59117366 (9) Peripheral vascular disease Current Visit: Yes Status: Chronic Code(s): I73.9 - PERIPHERAL VASCULAR DISEASE, UNSPECIFIED SNOMED Code(s): 890315088 (10) History of DVT (deep vein thrombosis) Current Visit: No Status: Resolved Code(s): Z86.718 - PERSONAL HISTORY OF OTHER VENOUS THROMBOSIS AND EMBOLISM SNOMED Code(s): 757282812 (11) History of atrial fibrillation Current Visit: No Status: Resolved Code(s): Z86.79 - PERSONAL HISTORY OF OTHER DISEASES OF THE CIRCULATORY SYSTEM SNOMED Code(s): 427877619 (12) Tobacco dependence in remission Current Visit: No Status: Resolved Code(s): F17.201 - NICOTINE DEPENDENCE, UNSPECIFIED, IN REMISSION SNOMED Code(s): 705038847 (13) Intestinal necrosis Current Visit: Yes Status: Acute Code(s): K55.069 - ACUTE INFARCTION OF INTESTINE, PART AND EXTENT UNSPECIFIED SNOMED Code(s): 62246437 (14) Ileostomy in place Current Visit: Yes Status: Acute Code(s): Z93.2 - ILEOSTOMY STATUS SNOMED Code(s): 632709801 (15) Ileostomy care Current Visit: Yes Status: Acute Code(s): Z43.2 - ENCOUNTER FOR ATTENTION TO ILEOSTOMY SNOMED Code(s): 229121149 (16) Ischemic colitis Current Visit: Yes Status: Acute Code(s): K55.9 - VASCULAR DISORDER OF INTESTINE, UNSPECIFIED SNOMED Code(s): 19479041 Plan: 1. Continue low dose aspirin, statin, plavix, Norvasc, hydralazine and beta sheree. Will increase her beta sheree as tolerated. 2. Continue Lasix 20 mg IV twice a day. Replace past potassium per protocol. 3. Continue Rocephin, Flagyl and Diflucan managed by Dr. Mccartney from infectious disease. 4. Continue amiodarone for A. fib prophylaxis. Currently on amiodarone 200 mg by mouth daily. 5. Encourage use of her incentive spirometry every hour while awake. 6. Monitor daily labs, chest x-rays. Pre-albumin less than 5.0 on 12/31/2017. 7. GI/DVT prophylaxis. 8. Pain control with current medication regimen. 9. Bronchodilators management per pulmonology. 10. Insulin/diabetic management per primary care service. 11. Wound VAC management per general surgery recommendations to her abdominal incisions. VAC dressing and ileostomy dressing will be changed on Monday and Fridays. 12. Continue bladder scans after each void or every 6 hours. If greater than 300 mL residual please straight cath. 13. Increase activity as tolerated, physical therapy/occupational therapy and cardiac rehab following. 14. Discharge planning in place. We will be [facility]. 15. More recommendations to follow based on patient's clinical course. Time with Patient: Greater than 30
[2018-01-04] MEDS ORDERED: POTASSIUM CHLORIDE ER 20 MEQ TAB.ER PO ONE (16:00)
[2018-01-04 16:58] LABS: Glucose,Whole Blood 122 mg/dL (75-99)
[2018-01-04 21:06] LABS: Glucose,Whole Blood 136 mg/dL (75-99)
--- NOTE | 2018-01-04 23:41 | PN ---
PROGRESS NOTE DATE OF SERVICE: 01/04/2018 PRESENT COMPLAINT: Tired. INTERVAL HISTORY: Patient is status post CABG followed by ischemic bowel and bowel perforation, has a resulting ileostomy and a wound VAC in place. Today patient continues to gradually improve; walking better, eating better. Antibiotics were adjusted by Dr. Mccartney yesterday evening. Looking to go to rehab when bed is available. Switched to oral Lasix yesterday. REVIEW OF SYSTEMS: Done for constitutional, cardiovascular, GI, pulmonary; relevant findings as above. The patient is eating much better. CURRENT MEDICATIONS: Reviewed that include: 1. DuoNeb. 2. P.o. Cordarone. 3. P.o. Diflucan. 4. P.o. Flagyl. 5. IV ceftriaxone. EXAMINATION: Temperature 97.8, pulse 72, respirations 16, blood pressure 140/72, pulse ox 98% on room air. GENERAL APPEARANCE: Sitting up, comfortable, EYES: Pupils equal. Conjunctivae pale. HEENT: External nose and ears normal. Oral cavity normal. NECK: JVD unable to assess. Mass not palpable. RESPIRATORY: Effort increased. LUNGS: Decreased breath sounds. CARDIOVASCULAR: First and second sounds normal. No edema is present. ABDOMEN: Soft, nontender. Ileostomy bag with brown stool. Wound VAC in place. PSYCHIATRY: Alert and oriented x3. Mood and affect normal. INVESTIGATIONS: White count 20, hemoglobin 8.4, platelets 849. Potassium 3.9. Accu-Cheks are noted. ASSESSMENT: 1. Coronary artery disease, status post coronary bypass on December 28. 2. Acute ischemic bowel with perforation and right transverse colectomy and takedown of ischemic section, resultant ileostomy. 3. Wound VAC. 4. Acute hypoxic respiratory failure, status post ventilator support, now on nasal cannula. 5. Hypotensive and septic shock, now recovered. 6. Paroxysmal atrial fibrillation, now in sinus rhythm. 7. Peripheral artery disease. 8. Hypothyroid. 9. Diabetes mellitus type 2. 10.Chronic low back pain from arthritis. 11.Depression, not otherwise specified. 12.Obesity; BMI of 34.3. 13.Acute blood loss anemia expected from surgery and hospital acquired from blood draws. 14.Hyperlipidemia. 15.Hypoalbuminemia as an acute phase reactant. 16.Bilateral pleural effusion, postsurgical, stabilized. 17.Essential hypertension. 18.Elevated white count/leukocytosis. PLAN: I spoke to Dr. Mccartney. Antibiotics have been adjusted to p.o. Flagyl and p.o. Diflucan, also on IV ceftriaxone. He will be transitioning with further antibiotics. Otherwise, patient appears to be stable to go to the ECF. Care was discussed with the patient by Dr. Mccartney. No further source of infection at this point. Clinically, patient is doing much better. MMODL / IJN: [id number] /
[2018-01-05 02:34] LABS: Glucose,Whole Blood 96 mg/dL (75-99)
[2018-01-05] MEDS: INSULIN ASPART 100 UNIT/ML 1 ML 10 ML VIAL SQ SCH ×5 (02:38→21:49)
[2018-01-05] MEDS: PANTOPRAZOLE 40 MG TABLET PO SCH (06:09)
[2018-01-05] MEDS: LEVOTHYROXINE 75 MCG TAB PO SCH (06:09)
[2018-01-05] MEDS: ACETAMINOPHEN TAB 325 MG TAB PO PRN (06:12)
[2018-01-05 06:14] LABS: Glucose,Whole Blood 99 mg/dL (75-99)
[2018-01-05] MEDS: IPRATROPIUM-ALBUTEROL 3 ML NEB INHALATION SCH ×4 (08:05→20:47)
[2018-01-05 10:00] LABS: Anion Gap 6 mmol/L; Blood Urea Nitrogen 7 mg/dL (7-17); Calcium 7.9 mg/dL (8.4-10.2); Carbon Dioxide 31 mmol/L (22-30); Chloride 96 mmol/L (98-107); Glucose 99 mg/dL (74-99); Magnesium 1.7 mg/dL (1.6-2.3); Potassium 3.4 mmol/L (3.5-5.1); Sodium 133 mmol/L (137-145)
[2018-01-05 10:14] LABS: Basophils # (A) 0.1 k/uL (0-0.2); Basophils % (A) 1 %; Eosinophils # (A) 0.6 k/uL (0-0.7); Eosinophils % (A) 3 %; HCT 25.2 % (34.0-46.0); HGB 7.6 gm/dL (11.4-16.0); Hypochromasia Marked; Lymphocytes # (A) 1.2 k/uL (1.0-4.8); Lymphocytes % (A) 6 %; MCH 26.3 pg (25.0-35.0); MCHC 30.3 g/dL (31.0-37.0); MCV 86.8 fL (80.0-100.0); Monocytes # (A) 1.1 k/uL (0-1.0); Monocytes % (A) 5 %; Neutrophils # (A) 16.5 k/uL (1.3-7.7); Neutrophils % (A) 84 %; Platelet Count 725 k/uL (150-450); RBC 2.91 m/uL (3.80-5.40); RDW 15.7 % (11.5-15.5); WBC 19.6 k/uL (3.8-10.6)
[2018-01-05] MEDS: HEPARIN SODIUM,PORCINE 5,000 UNIT/ML 1 ML VIAL SQ SCH ×3 (10:58→23:32)
[2018-01-05] MEDS: NYSTATIN 100,000 UNIT/ML SUSP 500,000 UNIT/5 ML CUP PO SCH ×4 (10:58→20:15)
[2018-01-05] MEDS: METOPROLOL TARTRATE 25 MG TAB PO SCH ×2 (10:59→20:13)
[2018-01-05] MEDS: FUROSEMIDE 40 MG TAB PO SCH ×2 (10:59→16:42)
[2018-01-05] MEDS: metroNIDAZOLE 500 MG TAB PO SCH ×3 (10:59→20:13)
[2018-01-05] MEDS: hydrALAZINE HCL 10 MG TAB PO SCH ×2 (11:00→20:13)
[2018-01-05] MEDS: CLOPIDOGREL 75 MG TAB PO SCH (11:01)
[2018-01-05] MEDS: cefTRIAXone IN SWFI 1,000 MG/10 ML SYRINGE IVP SCH (11:01)
[2018-01-05] MEDS: AMIODARONE 200 MG TAB PO SCH (11:01)
[2018-01-05] MEDS: ATORVASTATIN 40 MG TAB PO SCH (11:01)
[2018-01-05] MEDS: ASPIRIN 81 MG PO SCH (11:01)
[2018-01-05] MEDS: DULoxetine HCL 60 MG CAPSULE.DR PO SCH (11:02)
[2018-01-05] MEDS: CYANOCOBALAMIN 500 MCG TAB PO SCH (11:02)
[2018-01-05] MEDS: FERROUS SULFATE 325 MG TAB PO SCH (11:02)
[2018-01-05] MEDS: FLUCONAZOLE 100 MG TAB PO SCH (11:02)
[2018-01-05] MEDS: ASCORBIC ACID 500 MG TAB PO SCH (11:02)
[2018-01-05] MEDS: oxyCODONE ER 20 MG TAB.ER.12H PO SCH ×3 (11:04→23:32)
--- NOTE | 2018-01-05 11:22 | P.PN ---
Subjective Progress Note Date: 01/05/18 72-year-old female seen sitting up in a chair continues to be more awake and alert feels "stronger this morning" ostomy nurse has been following patient throughout hospitalization defer to ostomy nurse notes wound VAC changed today. Ostomy nurse noted mucutaneous separation of ileostomy juncture at 1 - 3:clock defer to note currently moderate amount of stool in the ostomy bag discharge plan is in progress patient is being evaluated to go to select specialty. PT OT participating in the plan of care patient needs the assist of 2 Currently abdomen surgical tenderness appropriate states no abdominal pain surgical dressings dry December 20 right colectomy transverse colectomy, takedown splenic flexure, ileostomy. due to perforated perforated viscus with necrosis of the transverse colon right colon Objective - Vital Signs Vital signs: Vital Signs Temp 97.6 F 01/05/18 08:00 Pulse 73 01/05/18 11:04 Resp 18 01/05/18 08:00 BP 136/66 01/05/18 08:00 Pulse Ox 97 01/05/18 08:00 Intake & Output 01/04/18 01/05/18 01/05/18 18:59 06:59 18:59 Intake Total 700 Output Total 700 Balance 0 Weight 89.3 kg Intake: Oral 700 Output: Stool 700 Other: Voiding Method Diaper Diaper Incontinent Incontinent ABP, PAP, CO, CI - Last Documented Arterial Blood Pressure 159/93 Pulmonary Artery Pressure 4/4 Cardiac Output 4.5 Cardiac Index 2.5 - Exam Exam 72-year-old female sitting up in a chair pleasant cooperative oriented 3 Lungs diminished at the bases otherwise adequate air movement Heart S1-S2 audible regular Abdomen wound VAC changed today by ostomy nurse incision dry ostomy moderate amount of stool brown soft incontinent urine soft nondistended nontender tolerating diet Extremities decrease edema to the bilateral lower extremities below the knee KURT benton on - Labs CBC & Chem 7: 01/05/18 09:13 01/05/18 09:13 Labs: Abnormal Lab Results - Last 24 Hours (Table) 01/04/18 01/04/18 01/04/18 Range/Units 11:35 16:56 21:05 WBC (3.8-10.6) k/uL RBC (3.80-5.40) m/uL Hgb (11.4-16.0) gm/dL Hct (34.0-46.0) % MCHC (31.0-37.0) g/dL RDW (11.5-15.5) % Plt Count (150-450) k/uL Neutrophils # (1.3-7.7) k/uL Monocytes # (0-1.0) k/uL Sodium (137-145) mmol/L Potassium (3.5-5.1) mmol/L Chloride (98-107) mmol/L Carbon Dioxide (22-30) mmol/L POC Glucose (mg/dL) 129 H 122 H 136 H (75-99) mg/dL Calcium (8.4-10.2) mg/dL 01/05/18 01/05/18 Range/Units 09:13 09:13 WBC 19.6 H (3.8-10.6) k/uL RBC 2.91 L (3.80-5.40) m/uL Hgb 7.6 L (11.4-16.0) gm/dL Hct 25.2 L (34.0-46.0) % MCHC 30.3 L (31.0-37.0) g/dL RDW 15.7 H (11.5-15.5) % Plt Count 725 H (150-450) k/uL Neutrophils # 16.5 H (1.3-7.7) k/uL Monocytes # 1.1 H (0-1.0) k/uL Sodium 133 L (137-145) mmol/L Potassium 3.4 L (3.5-5.1) mmol/L Chloride 96 L (98-107) mmol/L Carbon Dioxide 31 H (22-30) mmol/L POC Glucose (mg/dL) (75-99) mg/dL Calcium 7.9 L (8.4-10.2) mg/dL Microbiology - Last 24 Hours (Table) 01/01/18 21:38 Blood Culture - Preliminary Blood No Growth after 72 hours Assessment and Plan Assessment: Impression Ischemic colitis resolving stool for C. diff negative Postop diarrhea 9 expected outcome Postop urgent quadruple coronary artery bypass grafting using left internal mammary Echocardiogram preserved LV function Sudden onset of abdominal pain postoperative suspect due to free air. As evident on a CAT scan of the abdomen and pelvis Right colectomy, transverse colectomy, takedown splenic flexure, ileostomy for Perforated viscus done on December 20 Necrosis of transverse colon, right colon and on expected outcome Deconditioned suspect due to prolonged length of stay Leukocytosis present preoperatively Postoperative diarrhea unexpected outcome Postoperative pneumoperitoneum mucutaneous juncture separation from 1-3 with questionable fistulous active functioning bowel Plan Dr. malcolm will evaluate ostomy Ileostomy care Ileostomy teaching as appropriate Pain control Wound VAC as ordered changed January 05 Continue postop surgical care care PT OT eval Will follow with you with further recommendations as clinical course indicates The above impression and plan of care have been discussed and directed by signing physician. Missy Baca nurse practitioner acting as scribe for signing physician.
[2018-01-05 11:31] LABS: Glucose,Whole Blood 121 mg/dL (75-99)
[2018-01-05] MEDS: ONDANSETRON 4 MG/2 ML VIAL IVP PRN (14:02)
--- NOTE | 2018-01-05 14:02 | P.PN ---
Subjective Progress Note Date: 01/05/18 Principal diagnosis: Coronary artery disease with critical left main disease. Preserved left ventricular function. Previous medical history of hypertension, hyperlipidemia , diabetes mellitus with preoperative hemoglobin A1c 8.1%, hypothyroid, chest granulomatous disease, peripheral vascular disease status post right fem-pop bypass, previous tobacco dependence with preoperative FEV1 109% of predicted in November 2016, recent fall in June 2017 with torn right rotator cuff, questionable DVT with previous Coumadin use greater than 2 years ago, syncopal episodes, history of paroxysmal atrial fibrillation, chronic low back pain, obesity, depression and preoperative E. coli urinary tract infection. POD #25 urgent quadruple coronary artery bypass grafting using the left internal mammary artery sequentially to the diagonal coronary artery and to the left anterior descending coronary artery, a reverse greater saphenous vein graft from the aorta to the first obtuse marginal coronary artery, a reverse greater saphenous vein graft from the aorta to the third obtuse marginal coronary artery. Bilateral pulmonary vein isolation using the AtriCure radiofrequency clamp. Exclusion of the left atrial appendage using a 35 mm AtriClip. Intraoperative transesophageal echocardiogram and epi-aortic scanning. POD #15 right colectomy, transverse colectomy, takedown splenic flexure, ileostomy performed by Dr. Montoya Postoperative elevation in transaminases, an unexpected outcome, resolving. Leukocytosis, present preoperatively. Postoperative diarrhea, an unexpected outcome. Postoperative normochromic, normocytic anemia, an expected outcome of surgery secondary to cardiopulmonary bypass and hemodilution. Postoperative urinary retention, an unexpected outcome. Postoperative pneumoperitoneum, an unexpected outcome. Necrosis of the transverse colon, right colon and unexpected outcome. Sepsis, septic shock, an unexpected outcome. Postoperative prolonged mechanical ventilation, needed to be reintubated for second surgery, an unexpected outcome. Postoperative left-sided pleural effusion, an unexpected outcome of surgery. Resolving. The patient is currently sitting up to the bedside chair. She is in no acute distress. Denies any complaints of pain or shortness of breath at this time. Emesis 1 this morning denies any plates of nausea this time. She is alert and oriented 3. Wound VAC dressing is being changed at this time by the wound ostomy nurse. Ileostomy is putting out loose brown stool, ileostomy care being completed by wound ostomy nurse this morning. Wound ostomy nurse reports questionable fistula present to her ileostomy stoma. She is tolerating oral intake without complaints. She remains having generalized weakness, working with physical therapy. Her WBC count is 19.6 today, hemoglobin 7.6, and platelets 725. She remains afebrile and is currently on Rocephin, Diflucan and Flagyl managed by infectious disease. Objective - Vital Signs Vital signs: Vital Signs Temp 97.6 F 01/05/18 08:00 Pulse 73 01/05/18 11:04 Resp 18 01/05/18 08:00 BP 136/66 01/05/18 08:00 Pulse Ox 97 01/05/18 08:00 Intake & Output 01/04/18 01/05/18 01/05/18 18:59 06:59 18:59 Intake Total 700 Output Total 700 Balance 0 Weight 89.3 kg Intake: Oral 700 Output: Stool 700 Other: Voiding Method Diaper Diaper Incontinent Incontinent ABP, PAP, CO, CI - Last Documented Arterial Blood Pressure 159/93 Pulmonary Artery Pressure 4/4 Cardiac Output 4.5 Cardiac Index 2.5 - Constitutional General appearance: Present: cooperative, no acute distress, obese - Respiratory Details: Lung sounds are essentially clear throughout, diminished bilateral bases. Respirations are symmetrical and nonlabored. Oxygen saturation saturations are 97% on room air. She is achieving 1500 mL on her incentive spirometry with encouragement. - Cardiovascular Details: Regular rhythm and rate. S1 and S2 present, negative for S3, gallop or murmur. Sternum is stable. Remote telemetry showing normal sinus rhythm heart rate 71. Heart hugger is in place and she is demonstrating appropriate use. Right upper arm basilic vein midline catheter in place and functioning. Knee-high KURT hose and sequential compression devices in place to her bilateral lower extremities. - Gastrointestinal Gastrointestinal Comment(s): Abdomen soft, nontender and nondistended. Active bowel sounds all 4 abdominal quadrants. Right lower quadrant ileostomy present with brown stool. Questionable fistula to her stoma. Tolerating oral intake. Emesis 1 today. No guarding or rigidity. - Genitourinary Genitourinary Comment(s): Episodes of incontinence. Voiding clear noah urine. - Integumentary Integumentary Comment(s): Skin is warm and dry. No clubbing or cyanosis present. Midline sternal incision clean dry and intact. No drainage or redness present. Left leg EVH site clean dry and intact. No drainage or redness present. Midline abdominal incision with granulating tissue. Wound VAC dressing clean dry and intact. Jadyn intact. - Neurologic Neurologic: Present: CNII-XII intact - Musculoskeletal Musculoskeletal: Present: gait normal, generalized weakness, strength equal bilaterally - Psychiatric Psychiatric: Present: A&O x's 3, appropriate affect, intact judgment & insight - Allied health notes Allied health notes reviewed: nursing - Labs CBC & Chem 7: 01/05/18 09:13 01/05/18 09:13 Labs: Abnormal Lab Results - Last 24 Hours (Table) 01/04/18 01/04/18 01/05/18 Range/Units 16:56 21:05 09:13 WBC 19.6 H (3.8-10.6) k/uL RBC 2.91 L (3.80-5.40) m/uL Hgb 7.6 L (11.4-16.0) gm/dL Hct 25.2 L (34.0-46.0) % MCHC 30.3 L (31.0-37.0) g/dL RDW 15.7 H (11.5-15.5) % Plt Count 725 H (150-450) k/uL Neutrophils # 16.5 H (1.3-7.7) k/uL Monocytes # 1.1 H (0-1.0) k/uL Sodium (137-145) mmol/L Potassium (3.5-5.1) mmol/L Chloride (98-107) mmol/L Carbon Dioxide (22-30) mmol/L POC Glucose (mg/dL) 122 H 136 H (75-99) mg/dL Calcium (8.4-10.2) mg/dL 01/05/18 01/05/18 Range/Units 09:13 11:30 WBC (3.8-10.6) k/uL RBC (3.80-5.40) m/uL Hgb (11.4-16.0) gm/dL Hct (34.0-46.0) % MCHC (31.0-37.0) g/dL RDW (11.5-15.5) % Plt Count (150-450) k/uL Neutrophils # (1.3-7.7) k/uL Monocytes # (0-1.0) k/uL Sodium 133 L (137-145) mmol/L Potassium 3.4 L (3.5-5.1) mmol/L Chloride 96 L (98-107) mmol/L Carbon Dioxide 31 H (22-30) mmol/L POC Glucose (mg/dL) 121 H (75-99) mg/dL Calcium 7.9 L (8.4-10.2) mg/dL Microbiology - Last 24 Hours (Table) 01/01/18 21:38 Blood Culture - Preliminary Blood No Growth after 72 hours - Imaging and Cardiology Chest x-ray: report reviewed, image reviewed Assessment and Plan (1) Diarrhea in adult patient Current Visit: Yes Status: Acute Code(s): R19.7 - DIARRHEA, UNSPECIFIED SNOMED Code(s): 88052659 (2) Chronic low back pain Current Visit: Yes Status: Chronic Code(s): M54.5 - LOW BACK PAIN; G89.29 - OTHER CHRONIC PAIN SNOMED Code(s): 227670810 (3) Coronary artery disease involving left main coronary artery Current Visit: Yes Status: Chronic Code(s): I25.10 - ATHSCL HEART DISEASE OF [place] CORONARY ARTERY W/O ANG PCTRS SNOMED Code(s): 473063469 (4) Diabetes Current Visit: Yes Status: Chronic Code(s): E11.9 - TYPE 2 DIABETES MELLITUS WITHOUT COMPLICATIONS SNOMED Code(s): 67352615 (5) Family history of heart disease Current Visit: Yes Status: Chronic Code(s): Z82.49 - FAMILY HX OF ISCHEM HEART DIS AND OTH DIS OF THE CIRC SYS SNOMED Code(s): 021581629 (6) Hyperlipidemia Current Visit: Yes Status: Chronic Code(s): E78.5 - HYPERLIPIDEMIA, UNSPECIFIED SNOMED Code(s): 57776670 (7) Hypertension Current Visit: Yes Status: Chronic Code(s): I10 - ESSENTIAL (PRIMARY) HYPERTENSION SNOMED Code(s): 21628048 (8) Hypothyroid Current Visit: Yes Status: Chronic Code(s): E03.9 - HYPOTHYROIDISM, UNSPECIFIED SNOMED Code(s): 09680524 (9) Peripheral vascular disease Current Visit: Yes Status: Chronic Code(s): I73.9 - PERIPHERAL VASCULAR DISEASE, UNSPECIFIED SNOMED Code(s): 292387379 (10) History of DVT (deep vein thrombosis) Current Visit: No Status: Resolved Code(s): Z86.718 - PERSONAL HISTORY OF OTHER VENOUS THROMBOSIS AND EMBOLISM SNOMED Code(s): 645979139 (11) History of atrial fibrillation Current Visit: No Status: Resolved Code(s): Z86.79 - PERSONAL HISTORY OF OTHER DISEASES OF THE CIRCULATORY SYSTEM SNOMED Code(s): 284366264 (12) Tobacco dependence in remission Current Visit: No Status: Resolved Code(s): F17.201 - NICOTINE DEPENDENCE, UNSPECIFIED, IN REMISSION SNOMED Code(s): 970574351 (13) Intestinal necrosis Current Visit: Yes Status: Acute Code(s): K55.069 - ACUTE INFARCTION OF INTESTINE, PART AND EXTENT UNSPECIFIED SNOMED Code(s): 46922162 (14) Ileostomy in place Current Visit: Yes Status: Acute Code(s): Z93.2 - ILEOSTOMY STATUS SNOMED Code(s): 980546012 (15) Ileostomy care Current Visit: Yes Status: Acute Code(s): Z43.2 - ENCOUNTER FOR ATTENTION TO ILEOSTOMY SNOMED Code(s): 749041821 (16) Ischemic colitis Current Visit: Yes Status: Acute Code(s): K55.9 - VASCULAR DISORDER OF INTESTINE, UNSPECIFIED SNOMED Code(s): 75262730 Plan: 1. Continue low dose aspirin, statin, plavix, Norvasc, hydralazine and beta sheree. Will increase her beta sheree as tolerated. 2. Continue Lasix 20 mg IV twice a day. Replace past potassium per protocol. Replace magnesium per protocol 3. Continue Rocephin, Flagyl and Diflucan managed by Dr. Mccartney from infectious disease. 4. Continue amiodarone for A. fib prophylaxis. Currently on amiodarone 200 mg by mouth daily. 5. Encourage use of her incentive spirometry every hour while awake. 6. Monitor daily labs, chest x-rays. Pre-albumin less than 5.0 on 12/31/2017. 7. GI/DVT prophylaxis. 8. Pain control with current medication regimen. 9. Bronchodilators management per pulmonology. 10. Insulin/diabetic management per primary care service. 11. Wound VAC management per general surgery recommendations to her abdominal incisions. VAC dressing and ileostomy dressing change today by the wound ostomy care nurse. 12. Continue bladder scans after each void or every 6 hours. If greater than 300 mL residual please straight cath. 13. Increase activity as tolerated, physical therapy/occupational therapy and cardiac rehab following. 14. Discharge planning in place. We will be discharged to subacute rehab when appropriate. 15. Ileostomy stoma care recommendations per Dr. Montoya 16. More recommendations to follow based on patient's clinical course. Time with Patient: Greater than 30
[2018-01-05] MEDS: MAGNESIUM SULFATE-D5W PMX 1 GM in DEXTROSE/WATER 1 100ML.BAG IVPB SCH ×2 (14:03→14:53)
[2018-01-05] MEDS: POTASSIUM CHLORIDE ER 20 MEQ TAB.ER PO SCH ×2 (14:03→14:52)
--- NOTE | 2018-01-05 15:51 | P.PN ---
Progress Note - Text Progress Note Date: 01/05/18 The patient's ileostomy was examined with the stoma nurse. The patient has had some skin dehiscence around the ileostomy. The ileostomy is functioning. There is no abdominal pain. At this point the ileostomy will be observed.
[2018-01-05 16:37] LABS: Glucose,Whole Blood 154 mg/dL (75-99)
[2018-01-05 20:50] LABS: Glucose,Whole Blood 153 mg/dL (75-99)
--- NOTE | 2018-01-05 20:52 | PN ---
PROGRESS NOTE DATE OF SERVICE: 01/05/2018 PRESENTING COMPLAINT: Tired. INTERVAL HISTORY: The patient is status post CABG followed by ischemic bowel and bowel perforation, has a resulting ileostomy and a wound VAC in place. Today, patient reports that last night she had thrown up. Some wound dehiscence around the ileostomy bag, being followed by Dr. Montoya. The patient is resting in bed. Did work with therapy. No new issues. REVIEW OF SYSTEMS: Done for constitutional, cardiovascular, GI, pulmonary; relevant findings as above. CURRENT MEDICATIONS: Reviewed that include: 1. DuoNeb. 2. P.o. Cordarone. 3. Aspirin. 4. IV ceftriaxone. 5. P.o. Diflucan. 6. P.o. Flagyl. EXAMINATION: Temperature 97.6, pulse 72, respirations 18, blood pressure 94/49, pulse 96% on room air. GENERAL APPEARANCE: Lying in bed, awake. EYES: Pupils equal. Conjunctivae look pale. HEENT: External nose and ears normal. Oral cavity normal. NECK: JVD unable to assess. Mass not palpable. RESPIRATORY: Effort normal. LUNGS: Diminished breath sounds. CARDIOVASCULAR: First and second sounds normal. No edema. ABDOMEN: Soft, nontender. Ileostomy bag with brown stool. Wound VAC in place. PSYCHIATRY: Alert and oriented x3. Mood and affect were normal. INVESTIGATIONS: White count 19.6, hemoglobin 7.6. Potassium 3.4. ASSESSMENT: 1. Coronary artery disease, status post coronary bypass in December 11. 2. Acute ischemic bowel with perforation and right transverse colectomy and takedown of ischemic section ischemic portion,resulting in ileostomy. 3. Abdominal wound VAC in place. 4. Acute hypoxic respiratory failure, status post ventilator support, now on nasal cannula. 5. Hypotensive and septic shock, now recovered. 6. Paroxysmal atrial fibrillation, now in sinus rhythm. 7. Peripheral artery disease. 8. Hypothyroid. 9. Diabetes mellitus type 2. 10.Chronic low back pain from arthritis. 11.Depression, not otherwise specified. 12.Obesity; BMI 34.3. 13.Acute blood loss anemia, expected from surgery and hospital-acquired from blood draws. 14.Hyperlipidemia. 15.Hypoalbuminemia as an acute phase reactant. 16.Bilateral pleural effusion postsurgical, stable. 17.Essential hypertension. 18.Leukocytosis. The patient on broad-spectrum antibiotics. PLAN: Continue current medication and treatment plan. Dr. Montoya did see the patient. Ileostomy bag was changed. Antibiotics are to continue. Care was discussed the patient. GUERLINE / ELIAS: [id number] /
--- NOTE | 2018-01-05 22:37 | P.PN ---
Subjective Progress Note Date: 01/05/18 This is a 72-year-old female patient who initially underwent a stress test that was positive followed by a heart catheterization that showed significant disease in the left main, mid LAD and ostial circumflex. She then underwent an urgent CABG 4 vessel on December 11. Patient seems to have been recovering well until yesterday. She was noted to develop a fever of 102.6, lactic acid was 2.3 and also liver enzymes elevated. She had been treated for E. coli urinary tract infection that was present on admission with Rocephin. Her antibiotics were then changed to Zosyn and vancomycin. Patient also had some hypersomnolence and confusion yesterday for which her narcotics were changed from oxycodone which she chronically takes for back pain and switched to [place] every 6, IV Tylenol and Toradol and patient continues to have significant back pain. She denies chest pain, shortness of breath, nausea or vomiting. She denies any diarrhea. She does have decreased appetite which is been going on since admission. She states that she feels better from yesterday and recognizes that she was lethargic yesterday. Today. she has been up for shower and has had a bowel movement. Patient had low urine output yesterday and received a dose of Lasix. She had a CAT scan of the brain that showed cerebral atrophy and chronic small vessel ischemia. No acute intracranial process. She states that she was coughing a lot this morning but no denies shortness of breath. Chest x-ray from this morning shows minimal pulmonary vascular congestion cannot be exaggerated by low lung volumes in addition to persistent unchanged retrocardiac airspace disease, likely atelectasis and trace pleural effusions. Patient was using incentive spirometer 2000 mL she yesterday. She has had no significant wound concerns. Chest tubes and Almaguer are out. Patient denies any burning or pain with urination. . Now back in the intensive care unit she's had some abdominal pain and with worsening of her status including lactic acidosis to was concerns to ischemic colitis. She has been seen by surgery is being closely followed. She is on antimicrobial therapy with piperacillin tazobactam and vancomycin which would give coverage for ischemic colitis. Severe back pain is modestly controlled at this time. Patient is given a fluid bolus it appears that her lactic acid has dropped from 3.5-1.0. Fluids were also changed from lactated Ringer's to D5/ 0.45% NaCl with 20 mEq of KCl 12/18/2017 patient is sitting up in the chair looking considerably better. She has some clear liquids that she is able to ingest. Abdominal pain is improved. She is not having further fever or hypotension. Lactic acid is improved 12/21/2017 the patient had a significant change of her status and was found evidence of a perforated viscus and consequently the operating room yesterdaywhere exploratory laparotomy was performed, there is evidence of necrosis the transverse colon and of the right colon and consequently colectomy was performed in ileostomy was placed. Postoperatively the patient is now having some improvement. Vasopressor therapy has been held. Oxygenation is stable and she has no new complication. 12/22/2017 patient has had some improvement today that she is extubated and is stable after this has occurred. She is in no vasopressor therapy, has adequate oxygenation and urinary output. He is receiving some peripheral nutrition while her gastrointestinal function recovers. December 24 2017 patient continues to have improvement. Doing well extubated and off vasopressor therapy. Is awaiting recovery of her gastrointestinal function. Abdominal pain is minimal. She's been up in the chair without difficulties and is doing well with her incentive spirometry. 12/25/2017 and further improvement. She's been able to maintain her extubated status and other than complaints of ongoing severe back pain that has been a long-standing problem continued to have improvement. Initially her pain is worse today than yesterday. Primary service is trying to reduce her medications. 12/27/2017 patient has further improvement. Pain is more comfortable today. Less complaints of pain. Padded well sitting up in a chair. Breathing is going well and is denying much discomfort at this time. 01/03/2018 the patient is much more comfortable on the last evaluation. Sitting up in the chair relating that her severe pain is under good control at this time. She's been able to ambulate in her room with a walker to the doorway which is considerably improved from 4 days ago. She still extremely weak but is denying fevers or chills. Her appetite is improved and she denies nausea or emesis. 01/05/2018 patient with some improvement of strength, but has been found to have some separation of the stoma. Has been seen by surgery with no plans for surgery at this time. CT surgery is following with no new plans. Objective - Vital Signs Vital signs: Vital Signs Temp 99.0 F 01/05/18 20:00 Pulse 73 01/05/18 20:59 Resp 16 01/05/18 20:00 BP 113/58 01/05/18 20:00 Pulse Ox 96 01/05/18 20:00 Intake & Output 01/05/18 01/05/18 01/06/18 06:59 18:59 06:59 Intake Total 240 Output Total 0 Balance 240 Weight 89.3 kg Intake: Oral 240 Output: Post Void Residual 0 Other: Voiding Method Diaper Diaper Incontinent Incontinent ABP, PAP, CO, CI - Last Documented Arterial Blood Pressure 159/93 Pulmonary Artery Pressure 4/4 Cardiac Output 4.5 Cardiac Index 2.5 - Exam Gen: This is a 72-year-old female. supine she is extubated and comfortable HEENT: Head is atraumatic, normocephalic. Pupils equal, round. Sclerae is anicteric. Mucous members of the mouth are moist. NECK: Supple. No JVD. No lymphadenopathy. No thyromegaly. LUNGS: Clear to auscultation. No wheezes or rhonchi. No intercostal retractions. HEART: Regular rate and rhythm. No murmur. Sternal wound is intact. No significant drainage, erythema. ABDOMEN: recent surgery ileostomy in place large amount of bilious material is noted. Bowel sounds are quiet.the separation of the stoma was reported. EXTREMITIES: No pedal edema. Wound and left lower extremity shows no signs of infection. No drainage, significant erythema or edema. NEUROLOGICAL: Patient is awake alert and interactive Skin the surgical site the chest wall is intact without erythema crepitance or fluctuance vein harvest site is intact. abdominal incision has the wound VAC in place has 8cm of tunneling, and it' is functioning well - Labs CBC & Chem 7: 01/05/18 09:13 01/05/18 09:13 Labs: Abnormal Lab Results - Last 24 Hours (Table) 01/05/18 01/05/18 01/05/18 Range/Units 09:13 09:13 11:30 WBC 19.6 H (3.8-10.6) k/uL RBC 2.91 L (3.80-5.40) m/uL Hgb 7.6 L (11.4-16.0) gm/dL Hct 25.2 L (34.0-46.0) % MCHC 30.3 L (31.0-37.0) g/dL RDW 15.7 H (11.5-15.5) % Plt Count 725 H (150-450) k/uL Neutrophils # 16.5 H (1.3-7.7) k/uL Monocytes # 1.1 H (0-1.0) k/uL Sodium 133 L (137-145) mmol/L Potassium 3.4 L (3.5-5.1) mmol/L Chloride 96 L (98-107) mmol/L Carbon Dioxide 31 H (22-30) mmol/L POC Glucose (mg/dL) 121 H (75-99) mg/dL Calcium 7.9 L (8.4-10.2) mg/dL 01/05/18 01/05/18 Range/Units 16:35 20:49 WBC (3.8-10.6) k/uL RBC (3.80-5.40) m/uL Hgb (11.4-16.0) gm/dL Hct (34.0-46.0) % MCHC (31.0-37.0) g/dL RDW (11.5-15.5) % Plt Count (150-450) k/uL Neutrophils # (1.3-7.7) k/uL Monocytes # (0-1.0) k/uL Sodium (137-145) mmol/L Potassium (3.5-5.1) mmol/L Chloride (98-107) mmol/L Carbon Dioxide (22-30) mmol/L POC Glucose (mg/dL) 154 H 153 H (75-99) mg/dL Calcium (8.4-10.2) mg/dL Microbiology - Last 24 Hours (Table) 01/01/18 21:38 Blood Culture - Preliminary Blood No Growth after 72 hours Laboratory Results WBC 19.6 k/uL (3.8-10.6) H 01/05/18 09:13 RBC 2.91 m/uL (3.80-5.40) L 01/05/18 09:13 Hgb 7.6 gm/dL (11.4-16.0) L 01/05/18 09:13 Hct 25.2 % (34.0-46.0) L 01/05/18 09:13 MCV 86.8 fL (80.0-100.0) 01/05/18 09:13 MCH 26.3 pg (25.0-35.0) 01/05/18 09:13 MCHC 30.3 g/dL (31.0-37.0) L 01/05/18 09:13 RDW 15.7 % (11.5-15.5) H 01/05/18 09:13 Plt Count 725 k/uL (150-450) H 01/05/18 09:13 Neutrophils % 84 % 01/05/18 09:13 Neutrophils % (Manual) 75 % 12/20/17 04:30 Band Neutrophils % 7 % 12/20/17 04:30 Lymphocytes % 6 % 01/05/18 09:13 Lymphocytes % (Manual) 7 % 12/20/17 04:30 Monocytes % 5 % 01/05/18 09:13 Monocytes % (Manual) 5 % 12/20/17 04:30 Eosinophils % 3 % 01/05/18 09:13 Eosinophils % (Manual) 2 % 12/20/17 04:30 Basophils % 1 % 01/05/18 09:13 Metamyelocytes % 3 % 12/20/17 04:30 Myelocytes % 3 % 12/20/17 04:30 Neutrophils # 16.5 k/uL (1.3-7.7) H 01/05/18 09:13 Neutrophils # (Manual) 11.70 k/uL (1.3-7.7) H 12/20/17 04:30 Lymphocytes # 1.2 k/uL (1.0-4.8) 01/05/18 09:13 Lymphocytes # (Manual) 1.00 k/uL (1.0-4.8) 12/20/17 04:30 Monocytes # 1.1 k/uL (0-1.0) H 01/05/18 09:13 Monocytes # (Manual) 0.72 k/uL (0-1.0) 12/20/17 04:30 Eosinophils # 0.6 k/uL (0-0.7) 01/05/18 09:13 Eosinophils # (Manual) 0.29 k/uL (0-0.7) 12/20/17 04:30 Basophils # 0.1 k/uL (0-0.2) 01/05/18 09:13 Metamyelocytes # (Man) 0.43 k/uL (0) H 12/20/17 04:30 Myelocytes # (Manual) 0.43 k/uL (0) H 12/20/17 04:30 Nucleated RBCs 0 /100 WBC (0-0) 12/20/17 04:30 Manual Slide Review Performed 12/22/17 04:23 Toxic Granulation Present 12/22/17 04:23 Large Platelets Present 12/18/17 04:30 RBC Morphology Normal 12/11/17 16:55 Polychromasia Present 12/20/17 04:30 Hypochromasia Marked 01/05/18 09:13 Poikilocytosis Slight 01/04/18 06:41 Poikilocytosis (manual Present 12/18/17 04:30 Anisocytosis Slight 12/26/17 04:15 PT 9.9 sec (9.0-12.0) 12/25/17 08:48 INR 1.0 (<1.2) 12/25/17 08:48 APTT 49.0 sec (22.0-30.0) H 12/19/17 04:14 Sample Site adina 12/22/17 10:36 ABG pH 7.42 (7.35-7.45) 12/22/17 10:36 ABG pCO2 26 mmHg (35-45) L 12/22/17 10:36 ABG pO2 100 mmHg (83-108) 12/22/17 10:36 ABG HCO3 17 mmol/L (21-25) L 12/22/17 10:36 ABG Total CO2 18 mmol/L (19-24) L 12/22/17 10:36 ABG O2 Saturation 98.3 % (94-97) H 12/22/17 10:36 ABG Base Excess -7.4 mmol/L 12/22/17 10:36 ABG Hematocrit 20 % (34.0-46.0) L* 12/11/17 12:13 [place] Test Yes 12/22/17 04:10 ABG Sodium 136 mmol/L (135-146) 12/11/17 12:13 ABG Potassium 4.4 mmol/L (3.4-4.5) 12/11/17 12:13 ABG Ionized Calcium 4.2 mg/dL (4.5-5.3) L 12/11/17 12:13 ABG Glucose 204 mg/dL (75-99) H 12/11/17 12:13 ABG Lactic Acid 0.9 mmol/L (0.5-1.6) 12/21/17 04:30 Hemoglobin 6.4 gm/dL (11.4-16.0) L* 12/11/17 12:13 FiO2 40 % 12/22/17 10:36 Sodium 133 mmol/L (137-145) L 01/05/18 09:13 Potassium 3.4 mmol/L (3.5-5.1) L 01/05/18 09:13 Chloride 96 mmol/L (98-107) L 01/05/18 09:13 Carbon Dioxide 31 mmol/L (22-30) H 01/05/18 09:13 Anion Gap 6 mmol/L 01/05/18 09:13 BUN 7 mg/dL (7-17) 01/05/18 09:13 Creatinine 0.57 mg/dL (0.52-1.04) 01/05/18 09:13 Est GFR (CKD-EPI)AfAm >90 (>60 ml/min/1.73 sqM) 01/05/18 09:13 Est GFR (CKD-EPI)NonAf >90 (>60 ml/min/1.73 sqM) 01/05/18 09:13 Glucose 99 mg/dL (74-99) 01/05/18 09:13 POC Glucose (mg/dL) 153 mg/dL (75-99) H 01/05/18 20:49 POC Glu Armature Rewinder ID Ron Crane 01/05/18 20:[address] Glu mg/dL 186 12/08/17 06:55 Hemoglobin A1c 8.1 % (4.0-6.0) H 12/08/17 06:55 Lactic Ac Sepsis Rflx Y 12/15/17 10:17 Plasma Lactic Acid [place] 0.7 mmol/L (0.7-2.0) 12/22/17 09:15 Calcium 7.9 mg/dL (8.4-10.2) L 01/05/18 09:13 Ionized Calcium [place] 5.3 mg/dL (4.5-5.3) 12/27/17 06:18 Phosphorus 3.0 mg/dL (2.5-4.5) 01/05/18 09:13 Magnesium 1.7 mg/dL (1.6-2.3) 01/05/18 09:13 Total Bilirubin 0.4 mg/dL (0.2-1.3) 01/03/18 07:14 AST 21 U/L (14-36) 01/03/18 07:14 ALT 29 U/L (9-52) 01/03/18 07:14 Alkaline Phosphatase 297 U/L (38-126) H 01/03/18 07:14 Total Protein 4.9 g/dL (6.3-8.2) L 01/03/18 07:14 Albumin 2.1 g/dL (3.5-5.0) L 01/03/18 07:14 Prealbumin <5.0 mg/dL (18.0-42.0) L 12/31/17 06:31 Triglycerides 171 mg/dL (<150) H 12/23/17 04:32 Cholesterol 129 mg/dL (<200) 12/08/17 06:55 LDL Cholesterol, Calc 45 mg/dL (0-99) 12/08/17 06:55 HDL Cholesterol 66 mg/dL (40-60) H 12/08/17 06:55 Amylase <30 U/L (30-110) L 12/14/17 15:37 Lipase 25 U/L (23-300) 12/14/17 15:37 TSH 2.940 mIU/L (0.465-4.680) 12/08/17 06:55 Arterial Blood Potassium 4.4 mmol/L (3.4-4.5) 12/11/17 12:13 Arterial Blood Glucose 204 mg/dL (75-99) H 12/11/17 12:13 Urine Color Light Yellow 12/30/17 08:30 Urine Appearance Clear (Clear) 12/30/17 08:30 Urine pH 6.5 (5.0-8.0) 12/30/17 08:30 Ur Specific [place] 1.008 (1.001-1.035) 12/30/17 08:30 Urine Protein Trace (Negative) H 12/30/17 08:30 Urine Glucose (UA) Negative (Negative) 12/30/17 08:30 Urine Ketones Negative (Negative) 12/30/17 08:30 Urine Blood Negative (Negative) 12/30/17 08:30 Urine Nitrite Negative (Negative) 12/30/17 08:30 Urine Bilirubin Negative (Negative) 12/30/17 08:30 Urine Urobilinogen <2.0 mg/dL (<2.0) 12/30/17 08:30 Ur Leukocyte Esterase Trace (Negative) H 12/30/17 08:30 Urine RBC 1 /hpf (0-5) 12/30/17 08:30 Urine WBC 5 /hpf (0-5) 12/30/17 08:30 Ur Squamous Epith Cells <1 /hpf (0-4) 12/30/17 08:30 Urine Bacteria Occasional /hpf (None) H 12/08/17 12:00 Hyaline Casts 1 /lpf (0-2) 12/30/17 08:30 Urine Mucus Rare /hpf (None) H 12/08/17 12:00 Stool Occult Blood Positive (Negative) H 12/16/17 04:45 Stl Cryptosporidium Ag Negative (Negative) 12/15/17 14:15 Stool Giardia Source Stool 12/15/17 14:15 Stl Giardia Antigen Negative (Negative) 12/15/17 14:15 Vancomycin Trough 17.7 ug/mL 12/16/17 08:33 C. difficile (EIA) Intrp Negative (Negative) 12/16/17 10:35 Hepatitis A IgM Ab Non-Reactive (Non-Reactive) 12/08/17 06:55 Hep Bs Antigen Non-Reactive (Non-Reactive) 12/08/17 06:55 Hep B Core IgM Ab Non-Reactive (Non-Reactive) 12/08/17 06:55 Hep C IgG Ab Non-Reactive (Non-Reactive) 12/08/17 06:55 Blood Type B Positive 12/20/17 11:26 Blood Type Confirm B Positive 12/10/17 10:21 Blood Type Recheck No 12/20/17 11:26 Antibody Screen NEGATIVE 12/20/17 11:26 Crossmatch See Detail 12/20/17 11:26 Transfuse Platelets 12/11/17 12/10/17 05:38 Spec Expiration Date 12/23/2017 - 232512/20/17 11:26 Microbiology 01/01/18 21:38 Blood Blood Culture - Preliminary No Growth after 72 hours 12/13/17 22:12 Blood Blood Culture - Final No Growth after 144 hours 12/15/17 14:15 Stool Stool Culture - Final 12/12/17 17:00 Urine,Catheterized Urine Culture - Final 12/08/17 12:00 Urine,Clean Catch Urine Culture - Final Escherichia coli 12/08/17 12:00 Nasal Swab Nasal Screen MRSA/MSSA - Final Assessment and Plan (1) E. coli sepsis Narrative/Plan: 72 year old woman with history of CAD failed stress test now s/p CABG and was progressing but developed fever to 102. Found to have UTI and is now improving. He doesn't history of chronic back pain been of some contention over the last day because of excess sedation from her pain medications. She currently is on minimal premedication with orders to ensure that she is at least sitting up and getting some ambulation. Her shortness of breath is definitely improved her chest is without significant pain. She does have a history of urinary tract infections in the past, since the Almaguer is out she has some minimal discomfort but does not feel miserable. She's had difficulty with incontinence since the Almaguer has been removed, bladder scan was performed with only 200 mL noted. She does have a urine culture with Escherichia coli that is resistant to quinolone therapy. With her fever the antibiotic therapy was enhance Zosyn and vancomycin. Sternal wound does not appear to be infected at the moment does not seem to have pneumonia. 12/15/2017 reveals the patient to have a change of her status in that she developed abdominal pain as well as worsening of her status. This concerns to ischemic colitis and she was moved to the intensive care unit. She's been seen by general surgery. It is being monitored. She had worsening lactic acidosis is now showing improvement after fluid challenge. She is not having chest pain and her shortness of breath continues to improve. Blood cultures are negative but urine culture did have E. coli years that she does have significant underlying infection in the urinary system. Treatment has been with Zosyn which should also cover ischemic colitis at that is occurring at this time. There are concerns to bowel compromise possibly for microemboli in the postoperative time frame. With this heparin has been started. Cultures are process and she'll be monitored. Her significant leukocytosis showing some slight improvement. 12/18/2017 the patient is having some improvement. She is not having as much pain and is able to tolerate some oral intake with clear liquids and has had some flatus. Abdominal pain is steadily improved and overall feels better. Leukocytosis is trending to improvement. X-ray shows evidence of some worsening of the hilar edema.there are no new positive cultures on the E. coli has been isolated. Antibiotic therapy with Zosyn to complete 7 days of therapy for her E. coli urinary tract infection. Surgery is following for the transient ischemic colitis she's been anticoagulated, and final plans are being developed as far as her long-term anticoagulation. The lactic acidosis completely resolved. December 21 2017 after the patient had a major change in her statusand was found evidence of ischemic colitis in the transverse and right colon and underwent colectomy and ileostomy placement. She's now having some improvement in her vasopressor therapy has now been put on hold with resolution of the hypotension. Patient seems to be comfortable. With her significant change of status antimicrobial therapy was migrated to meropenem and Eraxis pending culture results.she has a persistent leukocytosis related to the current sepsis which is showing some improvement. She did have profound anemia and was transfused and seems to be stable at this time. No Evidence of any new acute bleeding. 12/22/2017 the patient is now extubated and comfortable. Gastrointestinal function recovery is awaited and peripheral nutrition has been established. Leukocytosis is improving. She no longer is requiring vasopressor therapy. Seems responding well to meropenem and Eraxis and these will continue for now. Patient's family is present and course in therapy are discussed including the need for rehab after discharge. 12/24/2017 patient continued to show improvement. Doing well after her recent surgical intervention. Responding well to antimicrobial therapy with meropenem and Eraxis. We'll plan at least 10 days of antimicrobial therapy regarding her significant sepsis from the ischemic colitis and leak. The profound leukocytosis is improving diminishing to 19.2 from 29.4. Remains afebrile. 12/25/2017 patient remains without fever, her profound leukocytosis continues to decline in overall she's doing considerably better except for complaints of chronic back pain. She's had return of abdominal function and is tolerating her full liquid diet without difficulty. No nausea or emesis occurred. Is working with the primary service as far as her pain control given her history of chronic back pain and chronic narcotic use for this. She is on day 4 of 10 of antibiotic therapy with Merrem and Eraxis for the ischemic perforated colon. 12/27/2017 patient continues to improve. Day 6 of 10 of antibiotic therapy with Merrem and Eraxis for her ischemic perforated colitis. Continues to have improvement discomfort from her back from her arthritis remains her biggest complaint. 01/03/2018 overall the patient is having improvement .Her pain is under better control and she started to have some ability to participate with therapy. She' ll still has a wound VAC in place and is not having difficulties with persistent leukocytosis that has been of some concern. Some alteration of antimicrobial therapy occurred without a significant change of her status. She' s had significant challenges as of late and the GI function has returned after the ischemic perforated colitis. Her leukocytosis is trending to improvement and still has significant evidence of inflammatory parameters with the thrombocytosis and anemia. We'll begin transition of antimicrobial therapy to oral, metronidazole is ready being utilized. Meropenem discontinued and transitioned to Rocephin. The Rocephin metronidazole will give coverage for intra-abdominal infection. Antifungal therapy as transition to fluconazole 100 mg a day. Planning current course of therapy over the next week. Continue negative pressure therapy the abdominal incisions and if possible have her follow in the wound healing Center. 01/05/2018The patient has been evaluated by the ostomy nurse and has been noticed to be some separation from the stoma, has been seen by the surgeon with no plans for surgical intervention. The patient is no less uncomfortable than she was, eating modestly well and tolerating current course of antibiotic therapy which is metronidazole, with Rocephin and fluconazole. Planning at least one further week of therapy as she transitions to LTAC. Status: Acute Code(s): A41.51 - SEPSIS DUE TO ESCHERICHIA COLI [E. COLI] SNOMED Code(s): 466160475 (2) Urinary tract infection Current Visit: Yes Status: Acute Code(s): N39.0 - URINARY TRACT INFECTION, SITE NOT SPECIFIED SNOMED Code(s): 16525450 (3) Coronary artery disease involving left main coronary artery Current Visit: Yes Status: Chronic Code(s): I25.10 - ATHSCL HEART DISEASE OF [place] CORONARY ARTERY W/O ANG PCTRS SNOMED Code(s): 033510918 (4) Fever Current Visit: Yes Status: Acute Code(s): R50.9 - FEVER, UNSPECIFIED SNOMED Code(s): 575588981
[2018-01-06 02:33] LABS: Glucose,Whole Blood 97 mg/dL (75-99)
[2018-01-06 03:20] LABS: Glucose,Whole Blood 101 mg/dL (75-99)
[2018-01-06] MEDS: INSULIN ASPART 100 UNIT/ML 1 ML 10 ML VIAL SQ SCH ×5 (04:29→20:56)
[2018-01-06 06:14] LABS: Glucose,Whole Blood 91 mg/dL (75-99)
[2018-01-06] MEDS: LEVOTHYROXINE 75 MCG TAB PO SCH (06:21)
[2018-01-06] MEDS: PANTOPRAZOLE 40 MG TABLET PO SCH (06:21)
[2018-01-06 06:36] LABS: Basophils # (A) 0.1 k/uL (0-0.2); Basophils % (A) 0 %; Eosinophils # (A) 0.7 k/uL (0-0.7); Eosinophils % (A) 4 %; HCT 24.5 % (34.0-46.0); HGB 7.7 gm/dL (11.4-16.0); Hypochromasia Moderate; Lymphocytes # (A) 1.4 k/uL (1.0-4.8); Lymphocytes % (A) 9 %; MCH 26.9 pg (25.0-35.0); MCHC 31.5 g/dL (31.0-37.0); MCV 85.5 fL (80.0-100.0); Monocytes # (A) 0.9 k/uL (0-1.0); Monocytes % (A) 5 %; Neutrophils # (A) 12.7 k/uL (1.3-7.7); Neutrophils % (A) 79 %; Platelet Count 726 k/uL (150-450); RBC 2.86 m/uL (3.80-5.40); RDW 15.9 % (11.5-15.5)
--- NOTE | 2018-01-06 06:50 | XR ---
EXAMINATION TYPE: XR chest 2V DATE OF EXAM: 01/06/2018 HISTORY: post op CABG. REFERENCE: Previous study dated 01/04/2018. FINDINGS: There has been a midline sternotomy. There continues be left basilar airspace disease. There are small, bilateral effusions. The right twan g is clear. IMPRESSION: CONTINUING POSTOPERATIVE CHANGE.
[2018-01-06 06:58] LABS: ALT 27 U/L (9-52); AST 21 U/L (14-36); Albumin 1.9 g/dL (3.5-5.0); Alkaline Phosphatase 381 U/L (38-126); Anion Gap 6 mmol/L; Blood Urea Nitrogen 7 mg/dL (7-17); Carbon Dioxide 31 mmol/L (22-30); Chloride 95 mmol/L (98-107); Glucose 85 mg/dL (74-99); Magnesium 2.2 mg/dL (1.6-2.3); Potassium 3.8 mmol/L (3.5-5.1); Sodium 132 mmol/L (137-145); Total Bilirubin 0.3 mg/dL (0.2-1.3); Total Protein 4.6 g/dL (6.3-8.2)
[2018-01-06] MEDS: IPRATROPIUM-ALBUTEROL 3 ML NEB INHALATION SCH ×4 (07:57→19:46)
[2018-01-06] MEDS ORDERED: POTASSIUM CHLORIDE ER 20 MEQ TAB.ER PO STA (08:21)
[2018-01-06] MEDS: oxyCODONE ER 20 MG TAB.ER.12H PO SCH ×2 (09:33→13:23)
[2018-01-06] MEDS: HEPARIN SODIUM,PORCINE 5,000 UNIT/ML 1 ML VIAL SQ SCH ×2 (09:34→18:16)
[2018-01-06] MEDS: AMIODARONE 200 MG TAB PO SCH (09:35)
[2018-01-06] MEDS: ASPIRIN 81 MG PO SCH (09:35)
[2018-01-06] MEDS: ATORVASTATIN 40 MG TAB PO SCH (09:35)
[2018-01-06] MEDS: NYSTATIN 100,000 UNIT/ML SUSP 500,000 UNIT/5 ML CUP PO SCH ×4 (09:36→20:56)
[2018-01-06] MEDS: metroNIDAZOLE 500 MG TAB PO SCH ×3 (09:36→20:56)
[2018-01-06] MEDS: DULoxetine HCL 60 MG CAPSULE.DR PO SCH (09:36)
[2018-01-06] MEDS: CLOPIDOGREL 75 MG TAB PO SCH (09:36)
[2018-01-06] MEDS: cefTRIAXone IN SWFI 1,000 MG/10 ML SYRINGE IVP SCH (09:45)
[2018-01-06] MEDS: METOPROLOL TARTRATE 25 MG TAB PO SCH ×2 (09:52→20:56)
[2018-01-06] MEDS: FLUCONAZOLE 100 MG TAB PO SCH (09:52)
[2018-01-06] MEDS: FUROSEMIDE 40 MG TAB PO SCH ×2 (09:52→18:16)
[2018-01-06] MEDS: hydrALAZINE HCL 10 MG TAB PO SCH ×2 (09:52→20:56)
--- NOTE | 2018-01-06 09:55 | P.PN ---
Subjective Progress Note Date: 01/06/18 Principal diagnosis: Coronary artery disease with critical left main disease. Preserved left ventricular function. Previous medical history of hypertension, hyperlipidemia , diabetes mellitus with preoperative hemoglobin A1c 8.1%, hypothyroid, chest granulomatous disease, peripheral vascular disease status post right fem-pop bypass, previous tobacco dependence with FEV1 109% of predicted in November 2016, recent fall in June 2017 with torn right rotator cuff, questionable DVT with previous Coumadin use greater than 2 years ago, syncopal episodes, paroxysmal atrial fibrillation, chronic low back pain, obesity, and depression. Preoperative E. coli urinary tract infection. POD #26 urgent quadruple coronary artery bypass grafting using the left internal mammary sequentially to the diagonal artery and to the left anterior descending artery, reverse saphenous vein graft from the aorta to the first obtuse marginal, reverse saphenous vein graft from the aorta to the third obtuse marginal artery. Bilateral pulmonary vein isolation using the AtriCure radiofrequency clamp. Exclusion of the left atrial appendage using a 35 mm AtriClip. Intraoperative transesophageal echocardiogram and epi-aortic scanning. Postoperative elevation in transaminases, an unexpected outcome, resolving. Leukocytosis, present preoperatively. Postoperative diarrhea, an unexpected outcome. Postoperative normocytic, normochromic anemia, and expected outcome of surgery secondary to cardiopulmonary bypass and hemodilution. Postoperative urinary retention, an unexpected outcome. Postoperative pneumoperitoneum, an unexpected outcome. Necrosis of the transverse colon, right colon, an unexpected outcome. Sepsis, septic shock, an unexpected outcome. POD #16 right colectomy, transverse colectomy, takedown splenic flexure, ileostomy performed by Dr. Montoya. Postoperative prolonged mechanical ventilation, need to be reintubated for second surgery, an unexpected outcome. Postoperative left-sided pleural effusion, an unexpected outcome, resolving. Patient is currently sitting up in the recliner in no acute distress. Denies pain or shortness of breath at this time. No new complaints. Patient continues to remain on Rocephin, oral Flagyl, and oral Diflucan per Dr. Mccartney recommendations. Remains afebrile. Wound VAC and ostomy changed yesterday, patient does have a dehiscence from the 1 to 3 o'clock position of the ostomy site, will continue to monitor per Dr. Montoya's recommendation. Patient continues to have stool output from her ostomy. Minimal output from wound VAC. Denies nausea, vomiting. Hemodynamically stable. Patient is ready to be discharged to long-term acute care, however insurance refuses to pay so she will remain in the hospital until stable enough for subacute rehab. Objective - Vital Signs Vital signs: Vital Signs Temp 98.3 F 01/06/18 04:00 Pulse 80 01/06/18 08:23 Resp 16 01/06/18 04:00 BP 111/66 01/06/18 04:00 Pulse Ox 96 01/06/18 04:00 Intake & Output 01/05/18 01/06/18 01/06/18 18:59 06:59 18:59 Intake Total 240 236 Output Total 0 Balance 240 236 Weight 88.7 kg Intake: Oral 240 236 Output: Post Void Residual 0 Other: Voiding Method Diaper Incontinent ABP, PAP, CO, CI - Last Documented Arterial Blood Pressure 159/93 Pulmonary Artery Pressure 4/4 Cardiac Output 4.5 Cardiac Index 2.5 - Constitutional General appearance: Present: cooperative, no acute distress, obese - Respiratory Details: Lungs sounds slightly diminished bilaterally. Respirations even, nonlabored. Currently on room air with oxygen saturation 96%. Able to achieve 3634-6219 mL on her incentive spirometry. Strong, nonproductive cough. - Cardiovascular Details: S1, S2 present. Regular rate and rhythm, sinus rhythm on telemetry. Sternum stable. Palpable peripheral pulses bilaterally. Bilateral lower extremity pitting edema present but decreased from prior. Right upper basilic vein midline catheter present. Heart hugger in place with patient demonstrating appropriate use. Antiembolism stockings, SCDs present. - Gastrointestinal Gastrointestinal Comment(s): Abdomen soft, nontender, nondistended. Active bowel sounds present. Right lower quadrant ileostomy present with dark brown liquid stool. Tolerating diet. - Genitourinary Genitourinary Comment(s): Patient remains incontinent of urine but is voiding with no documented residual per bladder scan. - Integumentary Integumentary Comment(s): Skin is warm and dry. Anterior chest incision well approximated with dry intact dressing present. Left lower semi-EVH site well approximated. Midline abdominal incision clean, andrei intact, wound VAC present with 200 mL drainage currently in the canister. - Neurologic Neurologic: Present: CNII-XII intact - Musculoskeletal Musculoskeletal: Present: generalized weakness, strength equal bilaterally - Psychiatric Psychiatric: Present: A&O x's 3, appropriate affect, intact judgment & insight - Allied health notes Allied health notes reviewed: nursing - Labs CBC & Chem 7: 01/06/18 06:10 01/06/18 06:10 Labs: Abnormal Lab Results - Last 24 Hours (Table) 01/05/18 01/05/18 01/05/18 Range/Units 09:13 09:13 11:30 WBC 19.6 H (3.8-10.6) k/uL RBC 2.91 L (3.80-5.40) m/uL Hgb 7.6 L (11.4-16.0) gm/dL Hct 25.2 L (34.0-46.0) % MCHC 30.3 L (31.0-37.0) g/dL RDW 15.7 H (11.5-15.5) % Plt Count 725 H (150-450) k/uL Neutrophils # 16.5 H (1.3-7.7) k/uL Monocytes # 1.1 H (0-1.0) k/uL Sodium 133 L (137-145) mmol/L Potassium 3.4 L (3.5-5.1) mmol/L Chloride 96 L (98-107) mmol/L Carbon Dioxide 31 H (22-30) mmol/L POC Glucose (mg/dL) 121 H (75-99) mg/dL Calcium 7.9 L (8.4-10.2) mg/dL Alkaline Phosphatase (38-126) U/L Total Protein (6.3-8.2) g/dL Albumin (3.5-5.0) g/dL 01/05/18 01/05/18 01/06/18 Range/Units 16:35 20:49 03:09 WBC (3.8-10.6) k/uL RBC (3.80-5.40) m/uL Hgb (11.4-16.0) gm/dL Hct (34.0-46.0) % MCHC (31.0-37.0) g/dL RDW (11.5-15.5) % Plt Count (150-450) k/uL Neutrophils # (1.3-7.7) k/uL Monocytes # (0-1.0) k/uL Sodium (137-145) mmol/L Potassium (3.5-5.1) mmol/L Chloride (98-107) mmol/L Carbon Dioxide (22-30) mmol/L POC Glucose (mg/dL) 154 H 153 H 101 H (75-99) mg/dL Calcium (8.4-10.2) mg/dL Alkaline Phosphatase (38-126) U/L Total Protein (6.3-8.2) g/dL Albumin (3.5-5.0) g/dL 01/06/18 01/06/18 Range/Units 06:10 06:10 WBC 16.0 H (3.8-10.6) k/uL RBC 2.86 L (3.80-5.40) m/uL Hgb 7.7 L (11.4-16.0) gm/dL Hct 24.5 L (34.0-46.0) % MCHC (31.0-37.0) g/dL RDW 15.9 H (11.5-15.5) % Plt Count 726 H (150-450) k/uL Neutrophils # 12.7 H (1.3-7.7) k/uL Monocytes # (0-1.0) k/uL Sodium 132 L (137-145) mmol/L Potassium (3.5-5.1) mmol/L Chloride 95 L (98-107) mmol/L Carbon Dioxide 31 H (22-30) mmol/L POC Glucose (mg/dL) (75-99) mg/dL Calcium 8.0 L (8.4-10.2) mg/dL Alkaline Phosphatase 381 H (38-126) U/L Total Protein 4.6 L (6.3-8.2) g/dL Albumin 1.9 L (3.5-5.0) g/dL Microbiology - Last 24 Hours (Table) 01/01/18 21:38 Blood Culture - Preliminary Blood No Growth after 96 hours - Imaging and Cardiology Chest x-ray: report reviewed, image reviewed Assessment and Plan (1) Coronary artery disease involving left main coronary artery Current Visit: Yes Status: Chronic Code(s): I25.10 - ATHSCL HEART DISEASE OF [place] CORONARY ARTERY W/O ANG PCTRS SNOMED Code(s): 643388266 (2) Hypertension Current Visit: Yes Status: Chronic Code(s): I10 - ESSENTIAL (PRIMARY) HYPERTENSION SNOMED Code(s): 40801098 (3) Hyperlipidemia Current Visit: Yes Status: Chronic Code(s): E78.5 - HYPERLIPIDEMIA, UNSPECIFIED SNOMED Code(s): 38160748 (4) Diabetes Current Visit: Yes Status: Chronic Code(s): E11.9 - TYPE 2 DIABETES MELLITUS WITHOUT COMPLICATIONS SNOMED Code(s): 80257388 (5) Peripheral vascular disease Current Visit: Yes Status: Chronic Code(s): I73.9 - PERIPHERAL VASCULAR DISEASE, UNSPECIFIED SNOMED Code(s): 962771343 (6) Family history of heart disease Current Visit: Yes Status: Chronic Code(s): Z82.49 - FAMILY HX OF ISCHEM HEART DIS AND OTH DIS OF THE CIRC SYS SNOMED Code(s): 171397292 (7) Tobacco dependence in remission Current Visit: No Status: Resolved Code(s): F17.201 - NICOTINE DEPENDENCE, UNSPECIFIED, IN REMISSION SNOMED Code(s): 278599174 (8) Hypothyroid Current Visit: Yes Status: Chronic Code(s): E03.9 - HYPOTHYROIDISM, UNSPECIFIED SNOMED Code(s): 01509717 (9) Syncopal episodes Current Visit: No Status: Chronic Code(s): R55 - SYNCOPE AND COLLAPSE SNOMED Code(s): 986536582 (10) History of DVT (deep vein thrombosis) Current Visit: No Status: Resolved Code(s): Z86.718 - PERSONAL HISTORY OF OTHER VENOUS THROMBOSIS AND EMBOLISM SNOMED Code(s): 250761597 (11) History of atrial fibrillation Current Visit: No Status: Resolved Code(s): Z86.79 - PERSONAL HISTORY OF OTHER DISEASES OF THE CIRCULATORY SYSTEM SNOMED Code(s): 285970962 (12) Chronic low back pain Current Visit: Yes Status: Chronic Code(s): M54.5 - LOW BACK PAIN; G89.29 - OTHER CHRONIC PAIN SNOMED Code(s): 250203638 (13) Depression Current Visit: Yes Status: Chronic Code(s): F32.9 - MAJOR DEPRESSIVE DISORDER, SINGLE EPISODE, UNSPECIFIED SNOMED Code(s): 30154528 Plan: 1. Continue low-dose aspirin, statin, Plavix, hydralazine, beta sheree. 2. Bronchodilators per pulmonology. 3. Continue amiodarone for A. fib prophylaxis. Will need anticoagulation at discharge. 4. Continue Rocephin, Flagyl, Diflucan per Dr. Mccartney. 5. Continue oral Lasix twice daily. 6. Monitor labs, chest x-rays. Replace potassium and magnesium per protocol. 7. GI prophylaxis with Protonix. DVT prophylaxis with subcu heparin, SCDs. 8. Pain control with current medication regimen. 9. Insulin management per primary care. 10. Wound VAC per general surgery to abdominal incisions. To be changed Monday , Monday, Monday. 11. Increase activity, ambulate as tolerated. PT/OT/cardiac rehab following. 12. Discharge planning in progress. Insurance refusing to pay for senior living acute-care so patient will remain inpatient until stable enough for subacute care. 13. Encourage oral nutrition, especially protein. 14. More recommendations to follow. Time with Patient: Greater than 30
[2018-01-06 11:34] LABS: Glucose,Whole Blood 132 mg/dL (75-99)
--- NOTE | 2018-01-06 13:01 | P.PN ---
Subjective Progress Note Date: 01/06/18 Principal diagnosis: Status post coronary artery bypass grafting, status post right colectomy for acute perforated viscus and necrosis of the transverse and right colon. Mrs. Sellers is a 72-year-old white female patient of Dr. Alcala who was undergoing cardiac evaluation for clearance for her upcoming right rotator cuff repair, was found to have inferoseptal ischemia on the nuclear stress test. Cardiac catheterization showed left main disease of 60-70%, extending into the proximal circumflex, mid LAD of 70%, and 70% ostial lesion of the left circumflex, and no significant right coronary artery disease. She was recommended surgical intervention for which she is scheduled on Monday, on 12/11. Past medical history is positive for diabetes mellitus type 2, hypertension, hyperlipidemia, hypothyroidism, peripheral vascular disease status post right fem-pop bypass, previous nicotine dependence, quit smoking 10 years ago, carries 20-[id number]-[id number] smoking history, DVT with previous Coumadin use , paroxysmal atrial fibrillation, chronic back pain, obesity and depression. Patient had a spirometry PFT in November 2016 which showed FEV1 of 109%. We are seeing this patient in consultation for pulmonary management for the upcoming coronary artery bypass grafting surgery. On today's evaluation of a 12/18/2017 Carolyn is back to the intensive care unit. She is postop day #7 following her coronary artery bypass surgery. She got transferred because of an extensive liquidy/watery diarrhea which left her into a dehydrated state and causes some non-anion gap metabolic acidosis. Her bicarb level is down to 14. She had 3 additional liquidy bowel movements this morning. The patient was seen by general surgery. CAT scan of the abdomen was done raising the possibility of an underlying ischemic colitis. She was placed on accommodation Zosyn and vancomycin. No fever or chills. She also had gone into atrial fibrillation. The rate is controlled right now with metoprolol and amiodarone and the patient is also on IV heparin. She is complaining of pain throughout her chest and body mainly in the joints and she has been taken hydrocodone outpatient basis. I restarted her on [place] 5 every 6 hours for pain control pH is using incentive spirometer. She is on IV fluids and she'll be started on a bicarb drip. The patient's chest x-ray from today showed small bilateral pleural effusion and basilar atelectasis and left lung base. There is also artifact from external objects on the chest x-ray. The postoperative echocardiogram showed a preserved LV function with an ejection fraction of 50-55 %. No valvular abnormalities noted. On today's evaluation of 12/19/2017, the patient is awake and alert and sitting up on a chair. The diarrhea has subsided significantly. She only had liquidy loose bowel movement there was small amount this morning. Otherwise, the patient is was resuscitated IV fluids. The patient received a bicarb infusion yesterday and her serum bicarb normalizes and earlier this morning associated to a normal saline infusion at the rate of 75 mL an hour. Her urine output is around 20-25 mL an hour. The patient's creatinine is normal. BUN is down to 7. Vascular electrodes are all within normal limits and her bicarb level is normalized. No nausea. No vomiting. No abdominal pain. She is taking clear liquid diet. No chest pain. Chest x-ray shows some mild pulmonary vascular congestion and atelectatic changes in lung bases bilaterally. She is on room air oxygen. Sternum stable clean and intact. She has E. coli in the urine and she is on IV Zosyn. Vancomycin was discontinued. IV heparin was discontinued. Her current rhythm is sinus. On 12/20/2017 the patient developed some vague abdominal pain. This pain started approximately 4 AM in the morning. As mentioned earlier the patient is postop from coronary artery bypass surgery and she is postop day #8. The patient is currently in the intensive care unit. X-ray of the chest was done this morning and it showed free air under the diaphragm. This is consistent with pneumoperitoneum and the patient will need further investigation. Immediately the general surgeon was contacted and the patient had a CAT scan of the abdomen and it showed moderate pneumoperitoneum with site of the perforation i not identified although there was suspicion that maybe the distal stomach/duodenal area. The patient currently on IV Zosyn. No cervical leukocytosis. Urine output is dropped down to 20 mL an hour. Her white count from this morning's at 14.3. Patient be taken to the operating room for an expected laparotomy. No altered mentation. No cough or sputum production. No other complaints otherwise for now. On 12/21/2017 I'm seeing this patient for a follow-up. She is a critically ill female patient was taken to the operating room yesterday for an acute bowel perforation. The patient was found to have pneumoperitoneum and the patient was taken to the operating room and the patient underwent expiratory laparotomy and right colectomy and transverse colectomy and takedown of splenic flexure and diverticular colostomy. The patient intraoperatively was found to have necrosis of the transverse colon and the right colon. Postop, the patient was kept intubated and the patient was moved to the intensive care unit for further evaluation and management. Overnight the patient was given fluid aggressively. She was given IV albumin. She was given lactated Ringer solution and normal saline solution. She did drop her pressure and she had also to placed on pressors and she is currently on 3-4 mics of norepinephrine infusion to maintain a mean artery pressure above 65. This morning I give her another liter of lactated Ringer and nontender albumin 5% to bring her CVP above 12. Hemoglobin dropped down to 6.7. Her white count came up to 31.4 and subsequently dropped down to 23. This is expected as the patient had a bowel necrosis and intra-abdominal sepsis. Antibiotic dressings were done and the patient was placed on Merrem and Eraxis. Earlier this morning the patient was on assist-control mode of ventilation and was obvious that the patient was asynchronous and double stacking on a mechanical ventilator. This was occurring even while on 40 mics of Diprivan infusion. Based on this, necessary vent changes were done. The patient was air hungry and she was taken significantly high tidal volumes. I was able to bring the tidal volume of 600 and the rate of 18 with a FiO2 of 40% and a PEEP of 5. Chest x-ray from today showed that the patient had adequate expansion of both lungs. There is a left- sided pleural effusion and ET tube is around 3-4 cm above the al. The net fluid balance over the past 24 hours is +6 L in the urine output is adequate for now. The patient is afebrile. On 12/22/2017 I'm seeing this patient for a follow-up. Note that the patient is postop day #2 following chest was colectomy, right colectomy and ileostomy and the patient is postop day #11 following her coronary artery bypass surgery. This morning the patient was sedated with Diprivan and she was calm and comfortable. Despite being on Diprivan, the patient was easily arousable. She was maintained on assist control mode of ventilation. Throughout the night the patient was an assist-control at the rate of 20 with a tidal volume of 600 and FiO2 of 40% and PEEP of 5. Chest x-ray showing the development of a left-sided pleural effusion. ET tube is in a good location. Rest of the lungs are all in good location is. NG tube is also in place. The blood gases from this morning showed a pH of 7.42 with a pCO2 of 26 and pO2 of 100. No significant orotracheal secretions. Hemodynamically, the patient was aggressively resuscitated IV fluids. She is in a positive fluid balance in order of 6 L at least and the patient was taken off pressors and she's been off the norepinephrine infusion for now. She is producing adequate amount of urine output. She does have a component of non-anion gap metabolic acidosis with a bicarb level of 16. Renal function stable with a creatinine of 0.9. Rest of the electrolytes are all within normal limits. Her white cell count peaked at 27.5 and currently is down to 25. She remains on a broad-spectrum antibiotics including IV Merrem and Ecaris. The cardiac rhythm remains sinus. CVP is somewhat between 10 and 13. Urine output is order of 30-40 mL an hour. Angiopathy was noted. There is also minimal amount of liquidy material within the ileostomy back. Surgical wound site is open and a superior and inferior portion and the wound VAC will be applied to that area. There is no active drainage at this point in time. Based on all this, I give the patient is sedation holiday. She woke up very nicely and she was able to follow commands and answers questions appropriately. Weaning parameters were checked and the patient had a tidal volume of 510 with a vital capacity of 780 within this of 27 and the rapid shallow breathing index of 34. She was given a CPAP trial and following that the patient was extubated to a nasal cannula pH is tolerated extubation without any major difficulties. At this point in time, the patient is extubated, she is following commands and answering questions appropriately. Family is at the bedside. On 12/23/2017, the patient remains extubated. She is postop day #3 following a right colectomy, transverse colectomy and ileostomy and she is postop day #12 following her coronary artery bypass surgery. I was able to wean the patient off the mechanical ventilator and she extubated very nicely without having any major difficulties and currently is on 2 L of oxygen by nasal cannula. Her chest x-ray continues to show a large left-sided pleural effusion. Earlier this morning he was given 40 mg of IV Lasix which improved her urine function and output and the patient is producing more than 50 mL of urine output on hourly basis. She is nothing by mouth. NG tube is in place. Her CVP remains somewhere between 11 and 18. She is producing up to 50 mL of urine output on hourly basis. Rule out able to apply wound VAC to her abdominal wall wound and the open incisions are well covered and she is producing approximately 600 mL of material from the wound VAC system was inserted yesterday. Sternum is stable clean and intact. She is weak and a bit lethargic, slightly worse compared to yesterday and this is probably attributed to her inability to fall asleep throughout the night. No active pain. She is weak. She denies having any specific complaints for now. TPN was started as the patient's pre-albumin and albumin and total protein is extremely low. Serum bicarb is gradually improving is up to 19. The patient is seen again today 01/06/2018 in follow-up on the selective care unit. She is postoperative day #26 her coronary artery bypass grafting. She is also day #16 of her right colectomy, transverse colectomy, subsequent ileostomy. There is a dehiscence at the ostomy site pain followed by surgical services. Output remains steady. Wound VACs are in place. Abdomen is soft. She is currently sitting up in a chair at the bedside. She is awake and alert in no acute distress. She is maintaining good O2 saturations in the 90s on room air. No pulmonary complaints. Chest x-ray reveals minimal left basilar airspace disease with small bilateral pleural effusions. She continues to work well with the incentive spirometer. White count 16.0. Hemoglobin 7.7. Creatinine 0.59. Objective - Vital Signs Vital signs: Vital Signs Temp 98.3 F 01/06/18 04:00 Pulse 80 01/06/18 11:43 Resp 16 01/06/18 04:00 BP 111/66 01/06/18 04:00 Pulse Ox 96 01/06/18 04:00 Intake & Output 01/05/18 01/06/18 01/06/18 18:59 06:59 18:59 Intake Total 240 236 Output Total 0 Balance 240 236 Weight 88.7 kg Intake: Oral 240 236 Output: Post Void Residual 0 Other: Voiding Method Diaper Incontinent ABP, PAP, CO, CI - Last Documented Arterial Blood Pressure 159/93 Pulmonary Artery Pressure 4/4 Cardiac Output 4.5 Cardiac Index 2.5 - Exam - Constitutional General appearance: Present: Awake, alert and oriented in no acute distress - Respiratory Details: Lungs sounds scattered rhonchi bilaterally, crackles in the posterior bases. Respirations even, nonlabored. Currently on 2 L/m with oxygen saturation 98%. Able to achieve 8901-7100 mL on her incentive spirometry. Effective cough. - Cardiovascular Details: S1, S2 present. Regular rate and rhythm, sinus rhythm on telemetry. Palpable peripheral pulses bilaterally. No edema present. No calf pain or tenderness noted. - Gastrointestinal Gastrointestinal Comment(s): Abdomen soft, nontender, nondistended. Active bowel sounds 4 quadrants. Tolerating diet. Ostomy functioning. Dehiscence being followed by surgical services. Wound VAC in place. - Genitourinary Genitourinary Comment(s): Continues to void clear, yellow urine. - Integumentary Integumentary Comment(s): Skin is warm and dry with evidence of good perfusion. Left groin soft, nontender, no drainage. - Neurologic Neurologic: Present: CNII-XII intact - Musculoskeletal Musculoskeletal Comment(s): Walks with cane. Musculoskeletal: Present: Weak - Psychiatric Psychiatric: Present: A&O x's 3 - Labs CBC & Chem 7: 01/06/18 06:10 01/06/18 06:10 Labs: Abnormal Lab Results - Last 24 Hours (Table) 01/05/18 01/05/18 01/06/18 Range/Units 16:35 20:49 03:09 WBC (3.8-10.6) k/uL RBC (3.80-5.40) m/uL Hgb (11.4-16.0) gm/dL Hct (34.0-46.0) % RDW (11.5-15.5) % Plt Count (150-450) k/uL Neutrophils # (1.3-7.7) k/uL Sodium (137-145) mmol/L Chloride (98-107) mmol/L Carbon Dioxide (22-30) mmol/L POC Glucose (mg/dL) 154 H 153 H 101 H (75-99) mg/dL Calcium (8.4-10.2) mg/dL Alkaline Phosphatase (38-126) U/L Total Protein (6.3-8.2) g/dL Albumin (3.5-5.0) g/dL 01/06/18 01/06/18 01/06/18 Range/Units 06:10 06:10 11:33 WBC 16.0 H (3.8-10.6) k/uL RBC 2.86 L (3.80-5.40) m/uL Hgb 7.7 L (11.4-16.0) gm/dL Hct 24.5 L (34.0-46.0) % RDW 15.9 H (11.5-15.5) % Plt Count 726 H (150-450) k/uL Neutrophils # 12.7 H (1.3-7.7) k/uL Sodium 132 L (137-145) mmol/L Chloride 95 L (98-107) mmol/L Carbon Dioxide 31 H (22-30) mmol/L POC Glucose (mg/dL) 132 H (75-99) mg/dL Calcium 8.0 L (8.4-10.2) mg/dL Alkaline Phosphatase 381 H (38-126) U/L Total Protein 4.6 L (6.3-8.2) g/dL Albumin 1.9 L (3.5-5.0) g/dL Microbiology - Last 24 Hours (Table) 01/01/18 21:38 Blood Culture - Preliminary Blood No Growth after 96 hours Assessment and Plan Assessment: Impression: #1. Multivessel coronary artery disease, involving left main coronary artery. Status post coronary artery bypass grafting. Postoperative day #26. #2. Acute sepsis secondary to an acute perforated viscus with necrosis of the transverse and right colon and the patient is status post right colectomy, transverse colectomy and takedown of splenic flexure with ileostomy. Small dehiscence at the 1 to 3 o'clock position, surgical services following. Wound VAC in place #3. Acute hypoxic respiratory failure secondary to above, recovered. #4. Diabetes mellitus 2 #5. Obesity #6. Peripheral vascular disease #7. History of nicotine dependence, currently in remission, quit 10 years ago, carries [id number] smoking history #8. Hypothyroidism #9. Paroxysmal atrial fibrillation, currently in sinus rhythm #10. Chronic low back pain #11. Depression #12. Urinary tract infection secondary to E. coli, follow-up culture negative #13. Hypertension. Plan: The patient was seen and evaluated by Dr. Salas. Chest x-ray and labs were reviewed. Working well with the incentive spirometer. Continue her current treatment plan. We will increase her activity as tolerated. We will continue to follow and make further recommendations based on her clinical status. Discharge planning is in place. Probable subacute care due to insurance. I, the cosigning physician, performed a history & physical examination of the patient. Lungs sounds with crackles in the left base. Maintaining good O2 saturations in the 90s on room air. I discussed the assessment and plan of care with my nurse practitioner, Anne Marie Javed. I attest to the above note as dictated by her.
[2018-01-06] MEDS: ASCORBIC ACID 500 MG TAB PO SCH (13:23)
[2018-01-06] MEDS: FERROUS SULFATE 325 MG TAB PO SCH (13:23)
[2018-01-06] MEDS: CYANOCOBALAMIN 500 MCG TAB PO SCH (13:23)
[2018-01-06 16:42] LABS: Glucose,Whole Blood 130 mg/dL (75-99)
--- NOTE | 2018-01-06 18:01 | P.PN ---
Subjective Progress Note Date: 01/06/18 This is a 72-year-old female patient who initially underwent a stress test that was positive followed by a heart catheterization that showed significant disease in the left main, mid LAD and ostial circumflex. She then underwent an urgent CABG 4 vessel on December 11. Patient seems to have been recovering well until yesterday. She was noted to develop a fever of 102.6, lactic acid was 2.3 and also liver enzymes elevated. She had been treated for E. coli urinary tract infection that was present on admission with Rocephin. Her antibiotics were then changed to Zosyn and vancomycin. Patient also had some hypersomnolence and confusion yesterday for which her narcotics were changed from oxycodone which she chronically takes for back pain and switched to Strong every 6, IV Tylenol and Toradol and patient continues to have significant back pain. She denies chest pain, shortness of breath, nausea or vomiting. She denies any diarrhea. She does have decreased appetite which is been going on since admission. She states that she feels better from yesterday and recognizes that she was lethargic yesterday. Today. she has been up for shower and has had a bowel movement. Patient had low urine output yesterday and received a dose of Lasix. She had a CAT scan of the brain that showed cerebral atrophy and chronic small vessel ischemia. No acute intracranial process. She states that she was coughing a lot this morning but no denies shortness of breath. Chest x-ray from this morning shows minimal pulmonary vascular congestion cannot be exaggerated by low lung volumes in addition to persistent unchanged retrocardiac airspace disease, likely atelectasis and trace pleural effusions. Patient was using incentive spirometer 2000 mL she yesterday. She has had no significant wound concerns. Chest tubes and Almaguer are out. Patient denies any burning or pain with urination. . Now back in the intensive care unit she's had some abdominal pain and with worsening of her status including lactic acidosis to was concerns to ischemic colitis. She has been seen by surgery is being closely followed. She is on antimicrobial therapy with piperacillin tazobactam and vancomycin which would give coverage for ischemic colitis. Severe back pain is modestly controlled at this time. Patient is given a fluid bolus it appears that her lactic acid has dropped from 3.5-1.0. Fluids were also changed from lactated Ringer's to D5/ 0.45% NaCl with 20 mEq of KCl 12/18/2017 patient is sitting up in the chair looking considerably better. She has some clear liquids that she is able to ingest. Abdominal pain is improved. She is not having further fever or hypotension. Lactic acid is improved 12/21/2017 the patient had a significant change of her status and was found evidence of a perforated viscus and consequently the operating room yesterdaywhere exploratory laparotomy was performed, there is evidence of necrosis the transverse colon and of the right colon and consequently colectomy was performed in ileostomy was placed. Postoperatively the patient is now having some improvement. Vasopressor therapy has been held. Oxygenation is stable and she has no new complication. 12/22/2017 patient has had some improvement today that she is extubated and is stable after this has occurred. She is in no vasopressor therapy, has adequate oxygenation and urinary output. He is receiving some peripheral nutrition while her gastrointestinal function recovers. December 24 2017 patient continues to have improvement. Doing well extubated and off vasopressor therapy. Is awaiting recovery of her gastrointestinal function. Abdominal pain is minimal. She's been up in the chair without difficulties and is doing well with her incentive spirometry. 12/25/2017 and further improvement. She's been able to maintain her extubated status and other than complaints of ongoing severe back pain that has been a long-standing problem continued to have improvement. Initially her pain is worse today than yesterday. Primary service is trying to reduce her medications. 12/27/2017 patient has further improvement. Pain is more comfortable today. Less complaints of pain. Padded well sitting up in a chair. Breathing is going well and is denying much discomfort at this time. 01/03/2018 the patient is much more comfortable on the last evaluation. Sitting up in the chair relating that her severe pain is under good control at this time. She's been able to ambulate in her room with a walker to the doorway which is considerably improved from 4 days ago. She still extremely weak but is denying fevers or chills. Her appetite is improved and she denies nausea or emesis. 01/05/2018 patient with some improvement of strength, but has been found to have some separation of the stoma. Has been seen by surgery with no plans for surgery at this time. CT surgery is following with no new plans. Summary 2018 patient continues to have some improvement of her overall strength. Appetite is improved. She's having no pain in the abdominal wall with the stoma. No fevers or chills. Objective - Vital Signs Vital signs: Vital Signs Temp 96.5 F L 01/06/18 12:00 Pulse 72 01/06/18 16:06 Resp 18 01/06/18 12:00 BP 96/46 01/06/18 12:00 Pulse Ox 95 01/06/18 12:00 Intake & Output 01/05/18 01/06/18 01/06/18 18:59 06:59 18:59 Intake Total 240 473 Output Total 0 700 Balance 240 -227 Weight 88.7 kg Intake: Oral 240 473 Output: Post Void Residual 0 Stool 700 Other: Voiding Method Diaper Diaper Incontinent Incontinent ABP, PAP, CO, CI - Last Documented Arterial Blood Pressure 159/93 Pulmonary Artery Pressure 4/4 Cardiac Output 4.5 Cardiac Index 2.5 - Exam Gen: This is a 72-year-old female. supine she is extubated and comfortable HEENT: Head is atraumatic, normocephalic. Pupils equal, round. Sclerae is anicteric. Mucous members of the mouth are moist. NECK: Supple. No JVD. No lymphadenopathy. No thyromegaly. LUNGS: Clear to auscultation. No wheezes or rhonchi. No intercostal retractions. HEART: Regular rate and rhythm. No murmur. Sternal wound is intact. No significant drainage, erythema. ABDOMEN: recent surgery ileostomy in place large amount of bilious material is noted. Bowel sounds are quiet.the separation of the stoma was reported. EXTREMITIES: No pedal edema. Wound and left lower extremity shows no signs of infection. No drainage, significant erythema or edema. NEUROLOGICAL: Patient is awake alert and interactive Skin the surgical site the chest wall is intact without erythema crepitance or fluctuance vein harvest site is intact. abdominal incision has the wound VAC in place has 8cm of tunneling, and it' is functioning well - Labs CBC & Chem 7: 01/06/18 06:10 01/06/18 06:10 Labs: Abnormal Lab Results - Last 24 Hours (Table) 01/05/18 01/06/18 01/06/18 Range/Units 20:49 03:09 06:10 WBC (3.8-10.6) k/uL RBC (3.80-5.40) m/uL Hgb (11.4-16.0) gm/dL Hct (34.0-46.0) % RDW (11.5-15.5) % Plt Count (150-450) k/uL Neutrophils # (1.3-7.7) k/uL Sodium 132 L (137-145) mmol/L Chloride 95 L (98-107) mmol/L Carbon Dioxide 31 H (22-30) mmol/L POC Glucose (mg/dL) 153 H 101 H (75-99) mg/dL Calcium 8.0 L (8.4-10.2) mg/dL Alkaline Phosphatase 381 H (38-126) U/L Total Protein 4.6 L (6.3-8.2) g/dL Albumin 1.9 L (3.5-5.0) g/dL 01/06/18 01/06/18 01/06/18 Range/Units 06:10 11:33 16:41 WBC 16.0 H (3.8-10.6) k/uL RBC 2.86 L (3.80-5.40) m/uL Hgb 7.7 L (11.4-16.0) gm/dL Hct 24.5 L (34.0-46.0) % RDW 15.9 H (11.5-15.5) % Plt Count 726 H (150-450) k/uL Neutrophils # 12.7 H (1.3-7.7) k/uL Sodium (137-145) mmol/L Chloride (98-107) mmol/L Carbon Dioxide (22-30) mmol/L POC Glucose (mg/dL) 132 H 130 H (75-99) mg/dL Calcium (8.4-10.2) mg/dL Alkaline Phosphatase (38-126) U/L Total Protein (6.3-8.2) g/dL Albumin (3.5-5.0) g/dL Microbiology - Last 24 Hours (Table) 01/01/18 21:38 Blood Culture - Preliminary Blood No Growth after 96 hours Laboratory Results WBC 16.0 k/uL (3.8-10.6) H 01/06/18 06:10 RBC 2.86 m/uL (3.80-5.40) L 01/06/18 06:10 Hgb 7.7 gm/dL (11.4-16.0) L 01/06/18 06:10 Hct 24.5 % (34.0-46.0) L 01/06/18 06:10 MCV 85.5 fL (80.0-100.0) 01/06/18 06:10 MCH 26.9 pg (25.0-35.0) 01/06/18 06:10 MCHC 31.5 g/dL (31.0-37.0) 01/06/18 06:10 RDW 15.9 % (11.5-15.5) H 01/06/18 06:10 Plt Count 726 k/uL (150-450) H 01/06/18 06:10 Neutrophils % 79 % 01/06/18 06:10 Neutrophils % (Manual) 75 % 12/20/17 04:30 Band Neutrophils % 7 % 12/20/17 04:30 Lymphocytes % 9 % 01/06/18 06:10 Lymphocytes % (Manual) 7 % 12/20/17 04:30 Monocytes % 5 % 01/06/18 06:10 Monocytes % (Manual) 5 % 12/20/17 04:30 Eosinophils % 4 % 01/06/18 06:10 Eosinophils % (Manual) 2 % 12/20/17 04:30 Basophils % 0 % 01/06/18 06:10 Metamyelocytes % 3 % 12/20/17 04:30 Myelocytes % 3 % 12/20/17 04:30 Neutrophils # 12.7 k/uL (1.3-7.7) H 01/06/18 06:10 Neutrophils # (Manual) 11.70 k/uL (1.3-7.7) H 12/20/17 04:30 Lymphocytes # 1.4 k/uL (1.0-4.8) 01/06/18 06:10 Lymphocytes # (Manual) 1.00 k/uL (1.0-4.8) 12/20/17 04:30 Monocytes # 0.9 k/uL (0-1.0) 01/06/18 06:10 Monocytes # (Manual) 0.72 k/uL (0-1.0) 12/20/17 04:30 Eosinophils # 0.7 k/uL (0-0.7) 01/06/18 06:10 Eosinophils # (Manual) 0.29 k/uL (0-0.7) 12/20/17 04:30 Basophils # 0.1 k/uL (0-0.2) 01/06/18 06:10 Metamyelocytes # (Man) 0.43 k/uL (0) H 12/20/17 04:30 Myelocytes # (Manual) 0.43 k/uL (0) H 12/20/17 04:30 Nucleated RBCs 0 /100 WBC (0-0) 12/20/17 04:30 Manual Slide Review Performed 12/22/17 04:23 Toxic Granulation Present 12/22/17 04:23 Large Platelets Present 12/18/17 04:30 RBC Morphology Normal 12/11/17 16:55 Polychromasia Present 12/20/17 04:30 Hypochromasia Moderate 01/06/18 06:10 Poikilocytosis Slight 01/04/18 06:41 Poikilocytosis (manual Present 12/18/17 04:30 Anisocytosis Slight 12/26/17 04:15 PT 9.9 sec (9.0-12.0) 12/25/17 08:48 INR 1.0 (<1.2) 12/25/17 08:48 APTT 49.0 sec (22.0-30.0) H 12/19/17 04:14 Sample Site snyder 12/22/17 10:36 ABG pH 7.42 (7.35-7.45) 12/22/17 10:36 ABG pCO2 26 mmHg (35-45) L 12/22/17 10:36 ABG pO2 100 mmHg (83-108) 12/22/17 10:36 ABG HCO3 17 mmol/L (21-25) L 12/22/17 10:36 ABG Total CO2 18 mmol/L (19-24) L 12/22/17 10:36 ABG O2 Saturation 98.3 % (94-97) H 12/22/17 10:36 ABG Base Excess -7.4 mmol/L 12/22/17 10:36 ABG Hematocrit 20 % (34.0-46.0) L* 12/11/17 12:13 Ju[place]ino Test Yes 12/22/17 04:10 ABG Sodium 136 mmol/L (135-146) 12/11/17 12:13 ABG Potassium 4.4 mmol/L (3.4-4.5) 12/11/17 12:13 ABG Ionized Calcium 4.2 mg/dL (4.5-5.3) L 12/11/17 12:13 ABG Glucose 204 mg/dL (75-99) H 12/11/17 12:13 ABG Lactic Acid 0.9 mmol/L (0.5-1.6) 12/21/17 04:30 Hemoglobin 6.4 gm/dL (11.4-16.0) L* 12/11/17 12:13 FiO2 40 % 12/22/17 10:36 Sodium 132 mmol/L (137-145) L 01/06/18 06:10 Potassium 3.8 mmol/L (3.5-5.1) 01/06/18 06:10 Chloride 95 mmol/L (98-107) L 01/06/18 06:10 Carbon Dioxide 31 mmol/L (22-30) H 01/06/18 06:10 Anion Gap 6 mmol/L 01/06/18 06:10 BUN 7 mg/dL (7-17) 01/06/18 06:10 Creatinine 0.59 mg/dL (0.52-1.04) 01/06/18 06:10 Est GFR (CKD-EPI)AfAm >90 (>60 ml/min/1.73 sqM) 01/06/18 06:10 Est GFR (CKD-EPI)NonAf >90 (>60 ml/min/1.73 sqM) 01/06/18 06:10 Glucose 85 mg/dL (74-99) 01/06/18 06:10 POC Glucose (mg/dL) 130 mg/dL (75-99) H 01/06/18 16:41 POC Glu Client Support Manager Toshia Miranda 01/06/18 16:[address] Glu mg/dL 186 12/08/17 06:55 Hemoglobin A1c 8.1 % (4.0-6.0) H 12/08/17 06:55 Lactic Ac Sepsis Rflx Y 12/15/17 10:17 Plasma Lactic Acid [place] 0.7 mmol/L (0.7-2.0) 12/22/17 09:15 Calcium 8.0 mg/dL (8.4-10.2) L 01/06/18 06:10 Ionized Calcium Adiel 5.3 mg/dL (4.5-5.3) 12/27/17 06:18 Phosphorus 3.0 mg/dL (2.5-4.5) 01/05/18 09:13 Magnesium 2.2 mg/dL (1.6-2.3) 01/06/18 06:10 Total Bilirubin 0.3 mg/dL (0.2-1.3) 01/06/18 06:10 AST 21 U/L (14-36) 01/06/18 06:10 ALT 27 U/L (9-52) 01/06/18 06:10 Alkaline Phosphatase 381 U/L (38-126) H 01/06/18 06:10 Total Protein 4.6 g/dL (6.3-8.2) L 01/06/18 06:10 Albumin 1.9 g/dL (3.5-5.0) L 01/06/18 06:10 Prealbumin <5.0 mg/dL (18.0-42.0) L 12/31/17 06:31 Triglycerides 171 mg/dL (<150) H 12/23/17 04:32 Cholesterol 129 mg/dL (<200) 12/08/17 06:55 LDL Cholesterol, Calc 45 mg/dL (0-99) 12/08/17 06:55 HDL Cholesterol 66 mg/dL (40-60) H 12/08/17 06:55 Amylase <30 U/L (30-110) L 12/14/17 15:37 Lipase 25 U/L (23-300) 12/14/17 15:37 TSH 2.940 mIU/L (0.465-4.680) 12/08/17 06:55 Arterial Blood Potassium 4.4 mmol/L (3.4-4.5) 12/11/17 12:13 Arterial Blood Glucose 204 mg/dL (75-99) H 12/11/17 12:13 Urine Color Light Yellow 12/30/17 08:30 Urine Appearance Clear (Clear) 12/30/17 08:30 Urine pH 6.5 (5.0-8.0) 12/30/17 08:30 Ur Specific [place] 1.008 (1.001-1.035) 12/30/17 08:30 Urine Protein Trace (Negative) H 12/30/17 08:30 Urine Glucose (UA) Negative (Negative) 12/30/17 08:30 Urine Ketones Negative (Negative) 12/30/17 08:30 Urine Blood Negative (Negative) 12/30/17 08:30 Urine Nitrite Negative (Negative) 12/30/17 08:30 Urine Bilirubin Negative (Negative) 12/30/17 08:30 Urine Urobilinogen <2.0 mg/dL (<2.0) 12/30/17 08:30 Ur Leukocyte Esterase Trace (Negative) H 12/30/17 08:30 Urine RBC 1 /hpf (0-5) 12/30/17 08:30 Urine WBC 5 /hpf (0-5) 12/30/17 08:30 Ur Squamous Epith Cells <1 /hpf (0-4) 12/30/17 08:30 Urine Bacteria Occasional /hpf (None) H 12/08/17 12:00 Hyaline Casts 1 /lpf (0-2) 12/30/17 08:30 Urine Mucus Rare /hpf (None) H 12/08/17 12:00 Stool Occult Blood Positive (Negative) H 12/16/17 04:45 Stl Cryptosporidium Ag Negative (Negative) 12/15/17 14:15 Stool Giardia Source Stool 12/15/17 14:15 Stl Giardia Antigen Negative (Negative) 12/15/17 14:15 Vancomycin Trough 17.7 ug/mL 12/16/17 08:33 C. difficile (EIA) Intrp Negative (Negative) 12/16/17 10:35 Hepatitis A IgM Ab Non-Reactive (Non-Reactive) 12/08/17 06:55 Hep Bs Antigen Non-Reactive (Non-Reactive) 12/08/17 06:55 Hep B Core IgM Ab Non-Reactive (Non-Reactive) 12/08/17 06:55 Hep C IgG Ab Non-Reactive (Non-Reactive) 12/08/17 06:55 Blood Type B Positive 12/20/17 11:26 Blood Type Confirm B Positive 12/10/17 10:21 Blood Type Recheck No 12/20/17 11:26 Antibody Screen NEGATIVE 12/20/17 11:26 Crossmatch See Detail 12/20/17 11:26 Transfuse Platelets 12/11/17 12/10/17 05:38 Spec Expiration Date 12/23/2017 - 232512/20/17 11:26 Microbiology 01/01/18 21:38 Blood Blood Culture - Preliminary No Growth after 96 hours 12/13/17 22:12 Blood Blood Culture - Final No Growth after 144 hours 12/15/17 14:15 Stool Stool Culture - Final 12/12/17 17:00 Urine,Catheterized Urine Culture - Final 12/08/17 12:00 Urine,Clean Catch Urine Culture - Final Escherichia coli 12/08/17 12:00 Nasal Swab Nasal Screen MRSA/MSSA - Final Assessment and Plan (1) E. coli sepsis Narrative/Plan: 72 year old woman with history of CAD failed stress test now s/p CABG and was progressing but developed fever to 102. Found to have UTI and is now improving. He doesn't history of chronic back pain been of some contention over the last day because of excess sedation from her pain medications. She currently is on minimal premedication with orders to ensure that she is at least sitting up and getting some ambulation. Her shortness of breath is definitely improved her chest is without significant pain. She does have a history of urinary tract infections in the past, since the Almaguer is out she has some minimal discomfort but does not feel miserable. She's had difficulty with incontinence since the Almaguer has been removed, bladder scan was performed with only 200 mL noted. She does have a urine culture with Escherichia coli that is resistant to quinolone therapy. With her fever the antibiotic therapy was enhance Zosyn and vancomycin. Sternal wound does not appear to be infected at the moment does not seem to have pneumonia. 12/15/2017 reveals the patient to have a change of her status in that she developed abdominal pain as well as worsening of her status. This concerns to ischemic colitis and she was moved to the intensive care unit. She's been seen by general surgery. It is being monitored. She had worsening lactic acidosis is now showing improvement after fluid challenge. She is not having chest pain and her shortness of breath continues to improve. Blood cultures are negative but urine culture did have E. coli years that she does have significant underlying infection in the urinary system. Treatment has been with Zosyn which should also cover ischemic colitis at that is occurring at this time. There are concerns to bowel compromise possibly for microemboli in the postoperative time frame. With this heparin has been started. Cultures are process and she'll be monitored. Her significant leukocytosis showing some slight improvement. 12/18/2017 the patient is having some improvement. She is not having as much pain and is able to tolerate some oral intake with clear liquids and has had some flatus. Abdominal pain is steadily improved and overall feels better. Leukocytosis is trending to improvement. X-ray shows evidence of some worsening of the hilar edema.there are no new positive cultures on the E. coli has been isolated. Antibiotic therapy with Zosyn to complete 7 days of therapy for her E. coli urinary tract infection. Surgery is following for the transient ischemic colitis she's been anticoagulated, and final plans are being developed as far as her long-term anticoagulation. The lactic acidosis completely resolved. December 21 2017 after the patient had a major change in her statusand was found evidence of ischemic colitis in the transverse and right colon and underwent colectomy and ileostomy placement. She's now having some improvement in her vasopressor therapy has now been put on hold with resolution of the hypotension. Patient seems to be comfortable. With her significant change of status antimicrobial therapy was migrated to meropenem and Eraxis pending culture results.she has a persistent leukocytosis related to the current sepsis which is showing some improvement. She did have profound anemia and was transfused and seems to be stable at this time. No Evidence of any new acute bleeding. 12/22/2017 the patient is now extubated and comfortable. Gastrointestinal function recovery is awaited and peripheral nutrition has been established. Leukocytosis is improving. She no longer is requiring vasopressor therapy. Seems responding well to meropenem and Eraxis and these will continue for now. Patient's family is present and course in therapy are discussed including the need for rehab after discharge. 12/24/2017 patient continued to show improvement. Doing well after her recent surgical intervention. Responding well to antimicrobial therapy with meropenem and Eraxis. We'll plan at least 10 days of antimicrobial therapy regarding her significant sepsis from the ischemic colitis and leak. The profound leukocytosis is improving diminishing to 19.2 from 29.4. Remains afebrile. 12/25/2017 patient remains without fever, her profound leukocytosis continues to decline in overall she's doing considerably better except for complaints of chronic back pain. She's had return of abdominal function and is tolerating her full liquid diet without difficulty. No nausea or emesis occurred. Is working with the primary service as far as her pain control given her history of chronic back pain and chronic narcotic use for this. She is on day 4 of 10 of antibiotic therapy with Merrem and Eraxis for the ischemic perforated colon. 12/27/2017 patient continues to improve. Day 6 of 10 of antibiotic therapy with Merrem and Eraxis for her ischemic perforated colitis. Continues to have improvement discomfort from her back from her arthritis remains her biggest complaint. 01/03/2018 overall the patient is having improvement .Her pain is under better control and she started to have some ability to participate with therapy. She' ll still has a wound VAC in place and is not having difficulties with persistent leukocytosis that has been of some concern. Some alteration of antimicrobial therapy occurred without a significant change of her status. She' s had significant challenges as of late and the GI function has returned after the ischemic perforated colitis. Her leukocytosis is trending to improvement and still has significant evidence of inflammatory parameters with the thrombocytosis and anemia. We'll begin transition of antimicrobial therapy to oral, metronidazole is ready being utilized. Meropenem discontinued and transitioned to Rocephin. The Rocephin metronidazole will give coverage for intra-abdominal infection. Antifungal therapy as transition to fluconazole 100 mg a day. Planning current course of therapy over the next week. Continue negative pressure therapy the abdominal incisions and if possible have her follow in the wound healing Center. 01/05/2018The patient has been evaluated by the ostomy nurse and has been noticed to be some separation from the stoma, has been seen by the surgeon with no plans for surgical intervention. The patient is no less uncomfortable than she was, eating modestly well and tolerating current course of antibiotic therapy which is metronidazole, with Rocephin and fluconazole. Planning at least one further week of therapy as she transitions to LTAC. 01/06/2018 patient without other new acute complaints. Is being treated with Rocephin intravenous as well as oral metronidazole and fluconazole. Planning a week of these when she transfers the LTAC hopefully on Monday. Continue the negative pressure therapy for the abdominal ulcerations with the 8 cm of tunneling. She's being monitored with the surgeon and wound ostomy nurse for some of the separation at her stoma. Status: Acute Code(s): A41.51 - SEPSIS DUE TO ESCHERICHIA COLI [E. COLI] SNOMED Code(s): 526712312 (2) Urinary tract infection Current Visit: Yes Status: Acute Code(s): N39.0 - URINARY TRACT INFECTION, SITE NOT SPECIFIED SNOMED Code(s): 92601140 (3) Coronary artery disease involving left main coronary artery Current Visit: Yes Status: Chronic Code(s): I25.10 - ATHSCL HEART DISEASE OF [place] CORONARY ARTERY W/O ANG PCTRS SNOMED Code(s): 232551305 (4) Fever Current Visit: Yes Status: Acute Code(s): R50.9 - FEVER, UNSPECIFIED SNOMED Code(s): 402235981
[2018-01-06 20:36] LABS: Glucose,Whole Blood 220 mg/dL (75-99)
--- NOTE | 2018-01-06 23:29 | PN ---
PROGRESS NOTE DATE OF SERVICE: 01/06/2018 INTERVAL HISTORY: Patient is status post CABG followed by ischemic bowel and bowel perforation, has resulting ileostomy and a wound VAC in place today. Today the patient feels a bit tired. Did tolerate some diet. Ileostomy is working. Antibiotics continuing. Has been out of bed next. REVIEW OF SYSTEMS: None for constitutional, cardiovascular, GI, pulmonary; relevant findings as above. CURRENT MEDICATIONS: Reviewed include DuoNeb, p.o. Cordarone, IV ceftriaxone, p.o. Diflucan and p.o. Flagyl. PHYSICAL EXAMINATION: Temperature 98.6, pulse 78, respirations 18, blood pressure 90/56, pulse ox 97 percent on room air. GENERAL APPEARANCE: Lying in bed, awake, tired-appearing. EYES: Pupils equal. Conjunctivae pale. HEENT: External ears and nose normal. Oral cavity normal. NECK: JVD unable to assess. Mass not palpable. Respiratory effort normal. LUNGS: Diminished breath sounds. CARDIOVASCULAR: First and second sounds normal. No edema. ABDOMEN: Soft, nontender. Ileostomy bag in place. Wound VAC in place. PSYCH: Alert and oriented x3. Mood and affect normal. INVESTIGATIONS: White count 16, hemoglobin 7.7, platelets 726, bicarb 21. ASSESSMENT: 1. Coronary artery disease status post coronary bypass on December 11. 2. Acute ischemic bowel with perforation and right transverse colectomy, takedown ischemic portion resulting in ileostomy. 3. Abdominal wound VAC in place. 4. Acute hypoxic respiratory failure status post ventilator support, now on nasal cannula. 5. Hypertensive and septic shock, now recovered. 6. Paroxysmal atrial fibrillation, now in sinus rhythm. 7. Peripheral artery disease. 8. Hypothyroid. 9. Diabetes mellitus type 2. 10.Chronic low back pain from arthritis. 11.Depression, not otherwise specified. 12.Obesity; BMI 34.3. 13.Acute blood loss anemia expected from surgery and hospital acquired from blood draws. 14.Hyperlipidemia. 15.Hypoalbuminemia as an acute phase reactant. 16.Bilateral pleural effusion, postsurgical. 17.Essential hypertension. 18.Leukocytosis, probably reactive from inflammation postsurgical and surgery. The patient remains on broad-spectrum antibiotics per Dr. Mccartney. PLAN: Continue current medication and treatment plan. Dr. Montoya is following the ileostomy bag. Per Dr. Mccartney, another week of antibiotics after discharge hopefully on Monday. MMODL / IJN: [id number] /
[2018-01-07] MEDS: HEPARIN SODIUM,PORCINE 5,000 UNIT/ML 1 ML VIAL SQ SCH ×3 (00:41→16:23)
[2018-01-07] MEDS: oxyCODONE ER 20 MG TAB.ER.12H PO SCH ×3 (00:41→16:23)
[2018-01-07 02:55] LABS: Glucose,Whole Blood 92 mg/dL (75-99)
[2018-01-07] MEDS: INSULIN ASPART 100 UNIT/ML 1 ML 10 ML VIAL SQ SCH ×5 (03:25→21:02)
[2018-01-07 06:18] LABS: Glucose,Whole Blood 83 mg/dL (75-99)
[2018-01-07] MEDS: LEVOTHYROXINE 75 MCG TAB PO SCH (06:24)
[2018-01-07] MEDS: PANTOPRAZOLE 40 MG TABLET PO SCH (06:24)
--- NOTE | 2018-01-07 08:09 | P.PN ---
Subjective Progress Note Date: 01/07/18 Principal diagnosis: Coronary artery disease with critical left main disease. Preserved left ventricular function. Previous medical history of hypertension, hyperlipidemia , diabetes mellitus with preoperative hemoglobin A1c 8.1%, hypothyroid, chest granulomatous disease, peripheral vascular disease status post right fem-pop bypass, previous tobacco dependence with FEV1 109% of predicted in November 2016, recent fall in June 2017 with torn right rotator cuff, questionable DVT with previous Coumadin use greater than 2 years ago, syncopal episodes, paroxysmal atrial fibrillation, chronic low back pain, obesity, and depression. Preoperative E. coli urinary tract infection. POD #27 urgent quadruple coronary artery bypass grafting using the left internal mammary sequentially to the diagonal artery and to the left anterior descending artery, reverse saphenous vein graft from the aorta to the first obtuse marginal, reverse saphenous vein graft from the aorta to the third obtuse marginal artery. Bilateral pulmonary vein isolation using the AtriCure radiofrequency clamp. Exclusion of the left atrial appendage using a 35 mm AtriClip. Intraoperative transesophageal echocardiogram and epi-aortic scanning. Postoperative elevation in transaminases, an unexpected outcome, resolving. Leukocytosis, present preoperatively. Postoperative diarrhea, an unexpected outcome. Postoperative normocytic, normochromic anemia, and expected outcome of surgery secondary to cardiopulmonary bypass and hemodilution. Postoperative urinary retention, an unexpected outcome. Postoperative pneumoperitoneum, an unexpected outcome. Necrosis of the transverse colon, right colon, an unexpected outcome. Sepsis, septic shock, an unexpected outcome. POD #17 right colectomy, transverse colectomy, takedown splenic flexure, ileostomy performed by Dr. Montoya. Postoperative prolonged mechanical ventilation, need to be reintubated for second surgery, an unexpected outcome. Postoperative left-sided pleural effusion, an unexpected outcome, resolving. Patient is currently laying in bed in no acute distress. Denies pain or shortness of breath at this time. No new complaints. Patient continues to remain on Rocephin, oral Flagyl, and oral Diflucan per Dr. Mccartney recommendations. Remains afebrile. Wound VAC and ostomy changed Monday, patient does have a dehiscence from the 1 to 3 o'clock position of the ostomy site, will continue to monitor per Dr. Montoya's recommendation. Patient continues to have stool output from her ostomy. Minimal output from wound VAC. Denies nausea, vomiting. Hemodynamically stable. Patient is ready to be discharged to long-term acute care, however insurance refuses to pay so she will remain in the hospital until stable enough for subacute rehab. Objective - Vital Signs Vital signs: Vital Signs Temp 98.6 F 01/07/18 04:00 Pulse 75 01/07/18 04:00 Resp 16 01/07/18 04:00 BP 96/64 01/07/18 04:00 Pulse Ox 95 01/07/18 04:00 Intake & Output 01/06/18 01/07/18 01/07/18 18:59 06:59 18:59 Intake Total 713 Output Total 1050 250 Balance -337 -250 Weight 87.8 kg Intake: Oral 713 Output: Stool 1050 250 Other: Voiding Method Diaper Diaper Incontinent Incontinent ABP, PAP, CO, CI - Last Documented Arterial Blood Pressure 159/93 Pulmonary Artery Pressure 4/4 Cardiac Output 4.5 Cardiac Index 2.5 - Constitutional General appearance: Present: cooperative, no acute distress, obese - Respiratory Details: Lungs sounds slightly diminished bilaterally. Respirations even, nonlabored. Currently on room air with oxygen saturation 95%. Able to achieve 1000 mL on her incentive spirometry. Strong, nonproductive cough. - Cardiovascular Details: S1, S2 present. Regular rate and rhythm, sinus rhythm on telemetry. Sternum stable. Palpable peripheral pulses bilaterally. Trace bilateral lower extremity pitting edema present. Right upper basilic vein midline catheter present, day #12. Heart hugger in place with patient demonstrating appropriate use. Antiembolism stockings, SCDs present. - Gastrointestinal Gastrointestinal Comment(s): Abdomen soft, nontender, nondistended. Active bowel sounds present. Right lower quadrant ileostomy present with dark brown liquid stool. Tolerating diet. - Genitourinary Genitourinary Comment(s): Patient remains incontinent of urine but is voiding with no documented residual per bladder scan. - Integumentary Integumentary Comment(s): Skin is warm and dry. Anterior chest incision well approximated with dry intact dressing present. Left lower semi-EVH site well approximated. Midline abdominal incision clean, andrei intact, wound VAC present with 250 mL drainage currently in the canister. - Neurologic Neurologic: Present: CNII-XII intact - Musculoskeletal Musculoskeletal: Present: generalized weakness, strength equal bilaterally - Psychiatric Psychiatric: Present: A&O x's 3, appropriate affect, intact judgment & insight - Allied health notes Allied health notes reviewed: nursing - Labs CBC & Chem 7: 01/06/18 06:10 01/06/18 06:10 Labs: Abnormal Lab Results - Last 24 Hours (Table) 01/06/18 01/06/18 01/06/18 Range/Units 11:33 16:41 20:33 POC Glucose (mg/dL) 132 H 130 H 220 H (75-99) mg/dL Microbiology - Last 24 Hours (Table) 01/01/18 21:38 Blood Culture - Preliminary Blood No Growth after 120 hours Assessment and Plan (1) Coronary artery disease involving left main coronary artery Current Visit: Yes Status: Chronic Code(s): I25.10 - ATHSCL HEART DISEASE OF [place] CORONARY ARTERY W/O ANG PCTRS SNOMED Code(s): 004754147 (2) Hypertension Current Visit: Yes Status: Chronic Code(s): I10 - ESSENTIAL (PRIMARY) HYPERTENSION SNOMED Code(s): 24703603 (3) Hyperlipidemia Current Visit: Yes Status: Chronic Code(s): E78.5 - HYPERLIPIDEMIA, UNSPECIFIED SNOMED Code(s): 10454653 (4) Diabetes Current Visit: Yes Status: Chronic Code(s): E11.9 - TYPE 2 DIABETES MELLITUS WITHOUT COMPLICATIONS SNOMED Code(s): 28333003 (5) Peripheral vascular disease Current Visit: Yes Status: Chronic Code(s): I73.9 - PERIPHERAL VASCULAR DISEASE, UNSPECIFIED SNOMED Code(s): 314534125 (6) Family history of heart disease Current Visit: Yes Status: Chronic Code(s): Z82.49 - FAMILY HX OF ISCHEM HEART DIS AND OTH DIS OF THE CIRC SYS SNOMED Code(s): 104623069 (7) Tobacco dependence in remission Current Visit: No Status: Resolved Code(s): F17.201 - NICOTINE DEPENDENCE, UNSPECIFIED, IN REMISSION SNOMED Code(s): 694014083 (8) Hypothyroid Current Visit: Yes Status: Chronic Code(s): E03.9 - HYPOTHYROIDISM, UNSPECIFIED SNOMED Code(s): 50286231 (9) Syncopal episodes Current Visit: No Status: Chronic Code(s): R55 - SYNCOPE AND COLLAPSE SNOMED Code(s): 099229654 (10) History of DVT (deep vein thrombosis) Current Visit: No Status: Resolved Code(s): Z86.718 - PERSONAL HISTORY OF OTHER VENOUS THROMBOSIS AND EMBOLISM SNOMED Code(s): 980772240 (11) History of atrial fibrillation Current Visit: No Status: Resolved Code(s): Z86.79 - PERSONAL HISTORY OF OTHER DISEASES OF THE CIRCULATORY SYSTEM SNOMED Code(s): 145298696 (12) Chronic low back pain Current Visit: Yes Status: Chronic Code(s): M54.5 - LOW BACK PAIN; G89.29 - OTHER CHRONIC PAIN SNOMED Code(s): 203454245 (13) Depression Current Visit: Yes Status: Chronic Code(s): F32.9 - MAJOR DEPRESSIVE DISORDER, SINGLE EPISODE, UNSPECIFIED SNOMED Code(s): 83697890 Plan: 1. Continue low-dose aspirin, statin, Plavix, hydralazine, beta sheree. 2. Bronchodilators per pulmonology. 3. Continue amiodarone for A. fib prophylaxis. Will need anticoagulation at discharge. 4. Continue Rocephin, Flagyl, Diflucan per Dr. Mccartney. 5. Continue oral Lasix twice daily. 6. Monitor labs, chest x-rays. Replace potassium and magnesium per protocol. 7. GI prophylaxis with Protonix. DVT prophylaxis with subcu heparin, SCDs. 8. Pain control with current medication regimen. 9. Insulin management per primary care. 10. Wound VAC per general surgery to abdominal incisions. To be changed Monday , Monday, Monday. 11. Increase activity, ambulate as tolerated. PT/OT/cardiac rehab following. 12. Discharge planning in progress. Insurance refusing to pay for [facility] so patient will remain inpatient until stable enough for subacute care. 13. Encourage oral nutrition, especially protein. 14. More recommendations to follow. Time with Patient: Greater than 30
[2018-01-07 08:13] LABS: Anisocytosis Slight; Basophils # (A) 0.1 k/uL (0-0.2); Basophils % (A) 1 %; Eosinophils # (A) 0.7 k/uL (0-0.7); Eosinophils % (A) 4 %; HCT 24.9 % (34.0-46.0); HGB 7.7 gm/dL (11.4-16.0); Hypochromasia Marked; Lymphocytes # (A) 1.4 k/uL (1.0-4.8); Lymphocytes % (A) 7 %; MCH 26.7 pg (25.0-35.0); MCHC 30.8 g/dL (31.0-37.0); MCV 86.9 fL (80.0-100.0); Mean Platelet Volume 6.7; Monocytes # (A) 1.2 k/uL (0-1.0); Monocytes % (A) 7 %; Neutrophils # (A) 14.9 k/uL (1.3-7.7); Neutrophils % (A) 80 %; Platelet Count 751 k/uL (150-450); RBC 2.86 m/uL (3.80-5.40); RDW 16.3 % (11.5-15.5); WBC 18.6 k/uL (3.8-10.6)
[2018-01-07 08:21] LABS: Anion Gap 6 mmol/L; Blood Urea Nitrogen 6 mg/dL (7-17); Calcium 7.8 mg/dL (8.4-10.2); Carbon Dioxide 31 mmol/L (22-30); Chloride 98 mmol/L (98-107); Glucose 80 mg/dL (74-99); Magnesium 1.8 mg/dL (1.6-2.3); Potassium 4.1 mmol/L (3.5-5.1); Sodium 135 mmol/L (137-145)
[2018-01-07] MEDS: IPRATROPIUM-ALBUTEROL 3 ML NEB INHALATION SCH ×4 (08:45→20:11)
[2018-01-07] MEDS: hydrALAZINE HCL 10 MG TAB PO SCH ×2 (09:56→20:53)
[2018-01-07] MEDS: NYSTATIN 100,000 UNIT/ML SUSP 500,000 UNIT/5 ML CUP PO SCH ×4 (09:56→20:54)
[2018-01-07] MEDS: ASPIRIN 81 MG PO SCH (09:56)
[2018-01-07] MEDS: metroNIDAZOLE 500 MG TAB PO SCH ×3 (09:57→20:54)
[2018-01-07] MEDS: METOPROLOL TARTRATE 25 MG TAB PO SCH ×2 (09:57→20:54)
[2018-01-07] MEDS: MAGNESIUM SULFATE-D5W PMX 1 GM in DEXTROSE/WATER 1 100ML.BAG IVPB SCH ×2 (10:04→17:33)
[2018-01-07] MEDS: cefTRIAXone IN SWFI 1,000 MG/10 ML SYRINGE IVP SCH (11:40)
[2018-01-07] MEDS: AMIODARONE 200 MG TAB PO SCH (11:40)
[2018-01-07] MEDS: FUROSEMIDE 40 MG TAB PO SCH ×2 (11:40→16:23)
[2018-01-07] MEDS: FLUCONAZOLE 100 MG TAB PO SCH (11:40)
[2018-01-07] MEDS: DULoxetine HCL 60 MG CAPSULE.DR PO SCH (11:40)
[2018-01-07] MEDS: CLOPIDOGREL 75 MG TAB PO SCH (11:41)
[2018-01-07] MEDS: ATORVASTATIN 40 MG TAB PO SCH (11:41)
[2018-01-07 12:03] LABS: Glucose,Whole Blood 204 mg/dL (75-99)
[2018-01-07] MEDS: ASCORBIC ACID 500 MG TAB PO SCH (13:35)
[2018-01-07] MEDS: FERROUS SULFATE 325 MG TAB PO SCH (13:35)
[2018-01-07] MEDS: CYANOCOBALAMIN 500 MCG TAB PO SCH (13:35)
--- NOTE | 2018-01-07 14:22 | P.PN ---
Subjective Progress Note Date: 01/07/18 Principal diagnosis: On 01/07/2018, no new complaints. Resting comfortably in bed. No nausea. No vomiting. No abdominal pain. No diarrhea. Wound VAC is in place. Still on same antibiotic coverage and the patient a combination of Rocephin and Flagyl and oral Diflucan. ID is on the case. Unable to send this patient to an extended care facility. LTAC was declined by her insurance. No respiratory difficulties. No fever or chills. No other complaints otherwise for now. Ileostomy site is functional. Objective - Vital Signs Vital signs: Vital Signs Temp 98.6 F 01/07/18 04:00 Pulse 76 01/07/18 11:55 Resp 16 01/07/18 04:00 BP 96/64 01/07/18 04:00 Pulse Ox 95 01/07/18 04:00 Intake & Output 01/06/18 01/07/18 01/07/18 18:59 06:59 18:59 Intake Total 713 Output Total 1050 250 Balance -337 -250 Weight 87.8 kg Intake: Oral 713 Output: Stool 1050 250 Other: Voiding Method Diaper Diaper Incontinent Incontinent ABP, PAP, CO, CI - Last Documented Arterial Blood Pressure 159/93 Pulmonary Artery Pressure 4/4 Cardiac Output 4.5 Cardiac Index 2.5 - Exam - Constitutional General appearance: Present: cooperative, no acute distress, obese - Respiratory Details: Lungs sounds slightly diminished bilaterally. Respirations even, nonlabored. Currently on room air with oxygen saturation 95%. Able to achieve 1000 mL on her incentive spirometry. Strong, nonproductive cough. - Cardiovascular Details: S1, S2 present. Regular rate and rhythm, sinus rhythm on telemetry. Sternum stable. Palpable peripheral pulses bilaterally. Trace bilateral lower extremity pitting edema present. Right upper basilic vein midline catheter present, day #12. Heart hugger in place with patient demonstrating appropriate use. Antiembolism stockings, SCDs present. - Gastrointestinal Gastrointestinal Comment(s): Abdomen soft, nontender, nondistended. Active bowel sounds present. Right lower quadrant ileostomy present with dark brown liquid stool. Tolerating diet. - Genitourinary Genitourinary Comment(s): Patient remains incontinent of urine but is voiding with no documented residual per bladder scan. - Integumentary Integumentary Comment(s): Skin is warm and dry. Anterior chest incision well approximated with dry intact dressing present. Left lower semi-EVH site well approximated. Midline abdominal incision clean, andrei intact, wound VAC present with 250 mL drainage currently in the canister. - Neurologic Neurologic: Present: CNII-XII intact - Musculoskeletal Musculoskeletal: Present: generalized weakness, strength equal bilaterally - Psychiatric Psychiatric: Present: A&O x's 3, appropriate affect, intact judgment & insight - Labs CBC & Chem 7: 01/07/18 07:30 01/07/18 07:30 Labs: Abnormal Lab Results - Last 24 Hours (Table) 01/06/18 01/06/18 01/07/18 Range/Units 16:41 20:33 07:30 WBC 18.6 H (3.8-10.6) k/uL RBC 2.86 L (3.80-5.40) m/uL Hgb 7.7 L (11.4-16.0) gm/dL Hct 24.9 L (34.0-46.0) % MCHC 30.8 L (31.0-37.0) g/dL RDW 16.3 H (11.5-15.5) % Plt Count 751 H (150-450) k/uL Neutrophils # 14.9 H (1.3-7.7) k/uL Monocytes # 1.2 H (0-1.0) k/uL Sodium (137-145) mmol/L Carbon Dioxide (22-30) mmol/L BUN (7-17) mg/dL POC Glucose (mg/dL) 130 H 220 H (75-99) mg/dL Calcium (8.4-10.2) mg/dL 01/07/18 01/07/18 Range/Units 07:30 11:20 WBC (3.8-10.6) k/uL RBC (3.80-5.40) m/uL Hgb (11.4-16.0) gm/dL Hct (34.0-46.0) % MCHC (31.0-37.0) g/dL RDW (11.5-15.5) % Plt Count (150-450) k/uL Neutrophils # (1.3-7.7) k/uL Monocytes # (0-1.0) k/uL Sodium 135 L (137-145) mmol/L Carbon Dioxide 31 H (22-30) mmol/L BUN 6 L (7-17) mg/dL POC Glucose (mg/dL) 204 H (75-99) mg/dL Calcium 7.8 L (8.4-10.2) mg/dL Microbiology - Last 24 Hours (Table) 01/01/18 21:38 Blood Culture - Preliminary Blood No Growth after 120 hours Assessment and Plan Plan: #1. Multivessel coronary artery disease, involving left main coronary artery. Status post coronary artery bypass grafting. Postoperative day #27. #2. Acute sepsis secondary to an acute perforated viscus with necrosis of the transverse and right colon and the patient is status post right colectomy, transverse colectomy and takedown of splenic flexure with ileostomy. Small dehiscence at the 1 to 3 o'clock position, surgical services following. Wound VAC in place . The acute septic event is completely recovered and the patient is completing a course of antibiotics. Antibiotic coverage includes Rocephin, Flagyl and oral Diflucan. #3. Acute hypoxic respiratory failure secondary to above, recovered. #4. Diabetes mellitus 2 #5. Obesity #6. Peripheral vascular disease #7. History of nicotine dependence, currently in remission, quit 10 years ago, carries [id number] smoking history #8. Hypothyroidism #9. Paroxysmal atrial fibrillation, currently in sinus rhythm #10. Chronic low back pain #11. Depression #12. Urinary tract infection secondary to E. coli, follow-up culture negative #13. Hypertension. Plan Treatment is supportive. May go to an LTAC if appropriate issues verification and clearance is obtained. Otherwise we'll continue our care unit hospital. No active pulmonary issues. Last chest x-ray was done on 01/06/2018 and it showed postoperative changes with some limited basilar atelectatic change and small effusions.
--- NOTE | 2018-01-07 16:23 | P.PN ---
Subjective Progress Note Date: 01/07/18 This is a 72-year-old female patient who initially underwent a stress test that was positive followed by a heart catheterization that showed significant disease in the left main, mid LAD and ostial circumflex. She then underwent an urgent CABG 4 vessel on December 11. Patient seems to have been recovering well until yesterday. She was noted to develop a fever of 102.6, lactic acid was 2.3 and also liver enzymes elevated. She had been treated for E. coli urinary tract infection that was present on admission with Rocephin. Her antibiotics were then changed to Zosyn and vancomycin. Patient also had some hypersomnolence and confusion yesterday for which her narcotics were changed from oxycodone which she chronically takes for back pain and switched to [place] every 6, IV Tylenol and Toradol and patient continues to have significant back pain. She denies chest pain, shortness of breath, nausea or vomiting. She denies any diarrhea. She does have decreased appetite which is been going on since admission. She states that she feels better from yesterday and recognizes that she was lethargic yesterday. Today. she has been up for shower and has had a bowel movement. Patient had low urine output yesterday and received a dose of Lasix. She had a CAT scan of the brain that showed cerebral atrophy and chronic small vessel ischemia. No acute intracranial process. She states that she was coughing a lot this morning but no denies shortness of breath. Chest x-ray from this morning shows minimal pulmonary vascular congestion cannot be exaggerated by low lung volumes in addition to persistent unchanged retrocardiac airspace disease, likely atelectasis and trace pleural effusions. Patient was using incentive spirometer 2000 mL she yesterday. She has had no significant wound concerns. Chest tubes and Almaguer are out. Patient denies any burning or pain with urination. . Now back in the intensive care unit she's had some abdominal pain and with worsening of her status including lactic acidosis to was concerns to ischemic colitis. She has been seen by surgery is being closely followed. She is on antimicrobial therapy with piperacillin tazobactam and vancomycin which would give coverage for ischemic colitis. Severe back pain is modestly controlled at this time. Patient is given a fluid bolus it appears that her lactic acid has dropped from 3.5-1.0. Fluids were also changed from lactated Ringer's to D5/ 0.45% NaCl with 20 mEq of KCl 12/18/2017 patient is sitting up in the chair looking considerably better. She has some clear liquids that she is able to ingest. Abdominal pain is improved. She is not having further fever or hypotension. Lactic acid is improved 12/21/2017 the patient had a significant change of her status and was found evidence of a perforated viscus and consequently the operating room yesterdaywhere exploratory laparotomy was performed, there is evidence of necrosis the transverse colon and of the right colon and consequently colectomy was performed in ileostomy was placed. Postoperatively the patient is now having some improvement. Vasopressor therapy has been held. Oxygenation is stable and she has no new complication. 12/22/2017 patient has had some improvement today that she is extubated and is stable after this has occurred. She is in no vasopressor therapy, has adequate oxygenation and urinary output. He is receiving some peripheral nutrition while her gastrointestinal function recovers. December 24 2017 patient continues to have improvement. Doing well extubated and off vasopressor therapy. Is awaiting recovery of her gastrointestinal function. Abdominal pain is minimal. She's been up in the chair without difficulties and is doing well with her incentive spirometry. 12/25/2017 and further improvement. She's been able to maintain her extubated status and other than complaints of ongoing severe back pain that has been a long-standing problem continued to have improvement. Initially her pain is worse today than yesterday. Primary service is trying to reduce her medications. 12/27/2017 patient has further improvement. Pain is more comfortable today. Less complaints of pain. Padded well sitting up in a chair. Breathing is going well and is denying much discomfort at this time. 01/03/2018 the patient is much more comfortable on the last evaluation. Sitting up in the chair relating that her severe pain is under good control at this time. She's been able to ambulate in her room with a walker to the doorway which is considerably improved from 4 days ago. She still extremely weak but is denying fevers or chills. Her appetite is improved and she denies nausea or emesis. 01/05/2018 patient with some improvement of strength, but has been found to have some separation of the stoma. Has been seen by surgery with no plans for surgery at this time. CT surgery is following with no new plans. Summary 2018 patient continues to have some improvement of her overall strength. Appetite is improved. She's having no pain in the abdominal wall with the stoma. No fevers or chills. 01/06/2018 patient has had some further improvement and continues to have the teamwork before her discharge plan hopefully LTAC, possibly which her [facility] inpatient rehab. This is discussed with the hospitalist. Objective - Vital Signs Vital signs: Vital Signs Temp 98.6 F 01/07/18 04:00 Pulse 76 01/07/18 16:05 Resp 16 01/07/18 04:00 BP 96/64 01/07/18 04:00 Pulse Ox 97 01/07/18 15:56 Intake & Output 01/06/18 01/07/18 01/07/18 18:59 06:59 18:59 Intake Total 713 118 Output Total 1050 250 Balance -337 -250 118 Weight 87.8 kg Intake: Oral 713 118 Output: Stool 1050 250 Other: Voiding Method Diaper Diaper Incontinent Incontinent ABP, PAP, CO, CI - Last Documented Arterial Blood Pressure 159/93 Pulmonary Artery Pressure 4/4 Cardiac Output 4.5 Cardiac Index 2.5 - Exam Gen: This is a 72-year-old female. supine she is extubated and comfortable HEENT: Head is atraumatic, normocephalic. Pupils equal, round. Sclerae is anicteric. Mucous members of the mouth are moist. NECK: Supple. No JVD. No lymphadenopathy. No thyromegaly. LUNGS: Clear to auscultation. No wheezes or rhonchi. No intercostal retractions. HEART: Regular rate and rhythm. No murmur. Sternal wound is intact. No significant drainage, erythema. ABDOMEN: recent surgery ileostomy in place large amount of bilious material is noted. Bowel sounds are quiet.the separation of the stoma was reported. EXTREMITIES: No pedal edema. Wound and left lower extremity shows no signs of infection. No drainage, significant erythema or edema. NEUROLOGICAL: Patient is awake alert and interactive Skin the surgical site the chest wall is intact without erythema crepitance or fluctuance vein harvest site is intact. abdominal incision has the wound VAC in place has 8cm of tunneling, and it' is functioning well - Labs CBC & Chem 7: 01/07/18 07:30 01/07/18 07:30 Labs: Abnormal Lab Results - Last 24 Hours (Table) 01/06/18 01/06/18 01/07/18 Range/Units 16:41 20:33 07:30 WBC 18.6 H (3.8-10.6) k/uL RBC 2.86 L (3.80-5.40) m/uL Hgb 7.7 L (11.4-16.0) gm/dL Hct 24.9 L (34.0-46.0) % MCHC 30.8 L (31.0-37.0) g/dL RDW 16.3 H (11.5-15.5) % Plt Count 751 H (150-450) k/uL Neutrophils # 14.9 H (1.3-7.7) k/uL Monocytes # 1.2 H (0-1.0) k/uL Sodium (137-145) mmol/L Carbon Dioxide (22-30) mmol/L BUN (7-17) mg/dL POC Glucose (mg/dL) 130 H 220 H (75-99) mg/dL Calcium (8.4-10.2) mg/dL 01/07/18 01/07/18 Range/Units 07:30 11:20 WBC (3.8-10.6) k/uL RBC (3.80-5.40) m/uL Hgb (11.4-16.0) gm/dL Hct (34.0-46.0) % MCHC (31.0-37.0) g/dL RDW (11.5-15.5) % Plt Count (150-450) k/uL Neutrophils # (1.3-7.7) k/uL Monocytes # (0-1.0) k/uL Sodium 135 L (137-145) mmol/L Carbon Dioxide 31 H (22-30) mmol/L BUN 6 L (7-17) mg/dL POC Glucose (mg/dL) 204 H (75-99) mg/dL Calcium 7.8 L (8.4-10.2) mg/dL Microbiology - Last 24 Hours (Table) 01/01/18 21:38 Blood Culture - Preliminary Blood No Growth after 120 hours Laboratory Results WBC 18.6 k/uL (3.8-10.6) H 01/07/18 07:30 RBC 2.86 m/uL (3.80-5.40) L 01/07/18 07:30 Hgb 7.7 gm/dL (11.4-16.0) L 01/07/18 07:30 Hct 24.9 % (34.0-46.0) L 01/07/18 07:30 MCV 86.9 fL (80.0-100.0) 01/07/18 07:30 MCH 26.7 pg (25.0-35.0) 01/07/18 07:30 MCHC 30.8 g/dL (31.0-37.0) L 01/07/18 07:30 RDW 16.3 % (11.5-15.5) H 01/07/18 07:30 Plt Count 751 k/uL (150-450) H 01/07/18 07:30 Neutrophils % 80 % 01/07/18 07:30 Neutrophils % (Manual) 75 % 12/20/17 04:30 Band Neutrophils % 7 % 12/20/17 04:30 Lymphocytes % 7 % 01/07/18 07:30 Lymphocytes % (Manual) 7 % 12/20/17 04:30 Monocytes % 7 % 01/07/18 07:30 Monocytes % (Manual) 5 % 12/20/17 04:30 Eosinophils % 4 % 01/07/18 07:30 Eosinophils % (Manual) 2 % 12/20/17 04:30 Basophils % 1 % 01/07/18 07:30 Metamyelocytes % 3 % 12/20/17 04:30 Myelocytes % 3 % 12/20/17 04:30 Neutrophils # 14.9 k/uL (1.3-7.7) H 01/07/18 07:30 Neutrophils # (Manual) 11.70 k/uL (1.3-7.7) H 12/20/17 04:30 Lymphocytes # 1.4 k/uL (1.0-4.8) 01/07/18 07:30 Lymphocytes # (Manual) 1.00 k/uL (1.0-4.8) 12/20/17 04:30 Monocytes # 1.2 k/uL (0-1.0) H 01/07/18 07:30 Monocytes # (Manual) 0.72 k/uL (0-1.0) 12/20/17 04:30 Eosinophils # 0.7 k/uL (0-0.7) 01/07/18 07:30 Eosinophils # (Manual) 0.29 k/uL (0-0.7) 12/20/17 04:30 Basophils # 0.1 k/uL (0-0.2) 01/07/18 07:30 Metamyelocytes # (Man) 0.43 k/uL (0) H 12/20/17 04:30 Myelocytes # (Manual) 0.43 k/uL (0) H 12/20/17 04:30 Nucleated RBCs 0 /100 WBC (0-0) 12/20/17 04:30 Manual Slide Review Performed 12/22/17 04:23 Toxic Granulation Present 12/22/17 04:23 Large Platelets Present 12/18/17 04:30 RBC Morphology Normal 12/11/17 16:55 Polychromasia Present 12/20/17 04:30 Hypochromasia Marked 01/07/18 07:30 Poikilocytosis Slight 01/04/18 06:41 Poikilocytosis (manual Present 12/18/17 04:30 Anisocytosis Slight 01/07/18 07:30 PT 9.9 sec (9.0-12.0) 12/25/17 08:48 INR 1.0 (<1.2) 12/25/17 08:48 APTT 49.0 sec (22.0-30.0) H 12/19/17 04:14 Sample Site champion 12/22/17 10:36 ABG pH 7.42 (7.35-7.45) 12/22/17 10:36 ABG pCO2 26 mmHg (35-45) L 12/22/17 10:36 ABG pO2 100 mmHg (83-108) 12/22/17 10:36 ABG HCO3 17 mmol/L (21-25) L 12/22/17 10:36 ABG Total CO2 18 mmol/L (19-24) L 12/22/17 10:36 ABG O2 Saturation 98.3 % (94-97) H 12/22/17 10:36 ABG Base Excess -7.4 mmol/L 12/22/17 10:36 ABG Hematocrit 20 % (34.0-46.0) L* 12/11/17 12:13 [place] Test Yes 12/22/17 04:10 ABG Sodium 136 mmol/L (135-146) 12/11/17 12:13 ABG Potassium 4.4 mmol/L (3.4-4.5) 12/11/17 12:13 ABG Ionized Calcium 4.2 mg/dL (4.5-5.3) L 12/11/17 12:13 ABG Glucose 204 mg/dL (75-99) H 12/11/17 12:13 ABG Lactic Acid 0.9 mmol/L (0.5-1.6) 12/21/17 04:30 Hemoglobin 6.4 gm/dL (11.4-16.0) L* 12/11/17 12:13 FiO2 40 % 12/22/17 10:36 Sodium 135 mmol/L (137-145) L 01/07/18 07:30 Potassium 4.1 mmol/L (3.5-5.1) 01/07/18 07:30 Chloride 98 mmol/L (98-107) 01/07/18 07:30 Carbon Dioxide 31 mmol/L (22-30) H 01/07/18 07:30 Anion Gap 6 mmol/L 01/07/18 07:30 BUN 6 mg/dL (7-17) L 01/07/18 07:30 Creatinine 0.60 mg/dL (0.52-1.04) 01/07/18 07:30 Est GFR (CKD-EPI)AfAm >90 (>60 ml/min/1.73 sqM) 01/07/18 07:30 Est GFR (CKD-EPI)NonAf >90 (>60 ml/min/1.73 sqM) 01/07/18 07:30 Glucose 80 mg/dL (74-99) 01/07/18 07:30 POC Glucose (mg/dL) 204 mg/dL (75-99) H 01/07/18 11:20 POC Glu Disease Management Nurse ID Marilu Palomares 01/07/18 11:[address] Glu mg/dL 186 12/08/17 06:55 Hemoglobin A1c 8.1 % (4.0-6.0) H 12/08/17 06:55 Lactic Ac Sepsis Rflx Y 12/15/17 10:17 Plasma Lactic Acid [place] 0.7 mmol/L (0.7-2.0) 12/22/17 09:15 Calcium 7.8 mg/dL (8.4-10.2) L 01/07/18 07:30 Ionized Calcium [place] 5.3 mg/dL (4.5-5.3) 12/27/17 06:18 Phosphorus 3.0 mg/dL (2.5-4.5) 01/05/18 09:13 Magnesium 1.8 mg/dL (1.6-2.3) 01/07/18 07:30 Total Bilirubin 0.3 mg/dL (0.2-1.3) 01/06/18 06:10 AST 21 U/L (14-36) 01/06/18 06:10 ALT 27 U/L (9-52) 01/06/18 06:10 Alkaline Phosphatase 381 U/L (38-126) H 01/06/18 06:10 Total Protein 4.6 g/dL (6.3-8.2) L 01/06/18 06:10 Albumin 1.9 g/dL (3.5-5.0) L 01/06/18 06:10 Prealbumin <5.0 mg/dL (18.0-42.0) L 12/31/17 06:31 Triglycerides 171 mg/dL (<150) H 12/23/17 04:32 Cholesterol 129 mg/dL (<200) 12/08/17 06:55 LDL Cholesterol, Calc 45 mg/dL (0-99) 12/08/17 06:55 HDL Cholesterol 66 mg/dL (40-60) H 12/08/17 06:55 Amylase <30 U/L (30-110) L 12/14/17 15:37 Lipase 25 U/L (23-300) 12/14/17 15:37 TSH 2.940 mIU/L (0.465-4.680) 12/08/17 06:55 Arterial Blood Potassium 4.4 mmol/L (3.4-4.5) 12/11/17 12:13 Arterial Blood Glucose 204 mg/dL (75-99) H 12/11/17 12:13 Urine Color Light Yellow 12/30/17 08:30 Urine Appearance Clear (Clear) 12/30/17 08:30 Urine pH 6.5 (5.0-8.0) 12/30/17 08:30 Ur Specific [place] 1.008 (1.001-1.035) 12/30/17 08:30 Urine Protein Trace (Negative) H 12/30/17 08:30 Urine Glucose (UA) Negative (Negative) 12/30/17 08:30 Urine Ketones Negative (Negative) 12/30/17 08:30 Urine Blood Negative (Negative) 12/30/17 08:30 Urine Nitrite Negative (Negative) 12/30/17 08:30 Urine Bilirubin Negative (Negative) 12/30/17 08:30 Urine Urobilinogen <2.0 mg/dL (<2.0) 12/30/17 08:30 Ur Leukocyte Esterase Trace (Negative) H 12/30/17 08:30 Urine RBC 1 /hpf (0-5) 12/30/17 08:30 Urine WBC 5 /hpf (0-5) 12/30/17 08:30 Ur Squamous Epith Cells <1 /hpf (0-4) 12/30/17 08:30 Urine Bacteria Occasional /hpf (None) H 12/08/17 12:00 Hyaline Casts 1 /lpf (0-2) 12/30/17 08:30 Urine Mucus Rare /hpf (None) H 12/08/17 12:00 Stool Occult Blood Positive (Negative) H 12/16/17 04:45 Stl Cryptosporidium Ag Negative (Negative) 12/15/17 14:15 Stool Giardia Source Stool 12/15/17 14:15 Stl Giardia Antigen Negative (Negative) 12/15/17 14:15 Vancomycin Trough 17.7 ug/mL 12/16/17 08:33 C. difficile (EIA) Intrp Negative (Negative) 12/16/17 10:35 Hepatitis A IgM Ab Non-Reactive (Non-Reactive) 12/08/17 06:55 Hep Bs Antigen Non-Reactive (Non-Reactive) 12/08/17 06:55 Hep B Core IgM Ab Non-Reactive (Non-Reactive) 12/08/17 06:55 Hep C IgG Ab Non-Reactive (Non-Reactive) 12/08/17 06:55 Blood Type B Positive 12/20/17 11:26 Blood Type Confirm B Positive 12/10/17 10:21 Blood Type Recheck No 12/20/17 11:26 Antibody Screen NEGATIVE 12/20/17 11:26 Crossmatch See Detail 12/20/17 11:26 Transfuse Platelets 12/11/17 12/10/17 05:38 Spec Expiration Date 12/23/2017 - 2326 12/20/17 11:26 Microbiology 01/01/18 21:38 Blood Blood Culture - Preliminary No Growth after 120 hours 12/13/17 22:12 Blood Blood Culture - Final No Growth after 144 hours 12/15/17 14:15 Stool Stool Culture - Final 12/12/17 17:00 Urine,Catheterized Urine Culture - Final 12/08/17 12:00 Urine,Clean Catch Urine Culture - Final Escherichia coli 12/08/17 12:00 Nasal Swab Nasal Screen MRSA/MSSA - Final Assessment and Plan (1) E. coli sepsis Narrative/Plan: 72 year old woman with history of CAD failed stress test now s/p CABG and was progressing but developed fever to 102. Found to have UTI and is now improving. He doesn't history of chronic back pain been of some contention over the last day because of excess sedation from her pain medications. She currently is on minimal premedication with orders to ensure that she is at least sitting up and getting some ambulation. Her shortness of breath is definitely improved her chest is without significant pain. She does have a history of urinary tract infections in the past, since the Almaguer is out she has some minimal discomfort but does not feel miserable. She's had difficulty with incontinence since the Almaguer has been removed, bladder scan was performed with only 200 mL noted. She does have a urine culture with Escherichia coli that is resistant to quinolone therapy. With her fever the antibiotic therapy was enhance Zosyn and vancomycin. Sternal wound does not appear to be infected at the moment does not seem to have pneumonia. 12/15/2017 reveals the patient to have a change of her status in that she developed abdominal pain as well as worsening of her status. This concerns to ischemic colitis and she was moved to the intensive care unit. She's been seen by general surgery. It is being monitored. She had worsening lactic acidosis is now showing improvement after fluid challenge. She is not having chest pain and her shortness of breath continues to improve. Blood cultures are negative but urine culture did have E. coli years that she does have significant underlying infection in the urinary system. Treatment has been with Zosyn which should also cover ischemic colitis at that is occurring at this time. There are concerns to bowel compromise possibly for microemboli in the postoperative time frame. With this heparin has been started. Cultures are process and she'll be monitored. Her significant leukocytosis showing some slight improvement. 12/18/2017 the patient is having some improvement. She is not having as much pain and is able to tolerate some oral intake with clear liquids and has had some flatus. Abdominal pain is steadily improved and overall feels better. Leukocytosis is trending to improvement. X-ray shows evidence of some worsening of the hilar edema.there are no new positive cultures on the E. coli has been isolated. Antibiotic therapy with Zosyn to complete 7 days of therapy for her E. coli urinary tract infection. Surgery is following for the transient ischemic colitis she's been anticoagulated, and final plans are being developed as far as her long-term anticoagulation. The lactic acidosis completely resolved. December 21 2017 after the patient had a major change in her statusand was found evidence of ischemic colitis in the transverse and right colon and underwent colectomy and ileostomy placement. She's now having some improvement in her vasopressor therapy has now been put on hold with resolution of the hypotension. Patient seems to be comfortable. With her significant change of status antimicrobial therapy was migrated to meropenem and Eraxis pending culture results.she has a persistent leukocytosis related to the current sepsis which is showing some improvement. She did have profound anemia and was transfused and seems to be stable at this time. No Evidence of any new acute bleeding. 12/22/2017 the patient is now extubated and comfortable. Gastrointestinal function recovery is awaited and peripheral nutrition has been established. Leukocytosis is improving. She no longer is requiring vasopressor therapy. Seems responding well to meropenem and Eraxis and these will continue for now. Patient's family is present and course in therapy are discussed including the need for rehab after discharge. 12/24/2017 patient continued to show improvement. Doing well after her recent surgical intervention. Responding well to antimicrobial therapy with meropenem and Eraxis. We'll plan at least 10 days of antimicrobial therapy regarding her significant sepsis from the ischemic colitis and leak. The profound leukocytosis is improving diminishing to 19.2 from 29.4. Remains afebrile. 12/25/2017 patient remains without fever, her profound leukocytosis continues to decline in overall she's doing considerably better except for complaints of chronic back pain. She's had return of abdominal function and is tolerating her full liquid diet without difficulty. No nausea or emesis occurred. Is working with the primary service as far as her pain control given her history of chronic back pain and chronic narcotic use for this. She is on day 4 of 10 of antibiotic therapy with Merrem and Eraxis for the ischemic perforated colon. 12/27/2017 patient continues to improve. Day 6 of 10 of antibiotic therapy with Merrem and Eraxis for her ischemic perforated colitis. Continues to have improvement discomfort from her back from her arthritis remains her biggest complaint. 01/03/2018 overall the patient is having improvement .Her pain is under better control and she started to have some ability to participate with therapy. She' ll still has a wound VAC in place and is not having difficulties with persistent leukocytosis that has been of some concern. Some alteration of antimicrobial therapy occurred without a significant change of her status. She' s had significant challenges as of late and the GI function has returned after the ischemic perforated colitis. Her leukocytosis is trending to improvement and still has significant evidence of inflammatory parameters with the thrombocytosis and anemia. We'll begin transition of antimicrobial therapy to oral, metronidazole is ready being utilized. Meropenem discontinued and transitioned to Rocephin. The Rocephin metronidazole will give coverage for intra-abdominal infection. Antifungal therapy as transition to fluconazole 100 mg a day. Planning current course of therapy over the next week. Continue negative pressure therapy the abdominal incisions and if possible have her follow in the wound healing Center. 01/05/2018The patient has been evaluated by the ostomy nurse and has been noticed to be some separation from the stoma, has been seen by the surgeon with no plans for surgical intervention. The patient is no less uncomfortable than she was, eating modestly well and tolerating current course of antibiotic therapy which is metronidazole, with Rocephin and fluconazole. Planning at least one further week of therapy as she transitions to LTAC. 01/06/2018 patient without other new acute complaints. Is being treated with Rocephin intravenous as well as oral metronidazole and fluconazole. Planning a week of these when she transfers the LTAC hopefully on Monday. Continue the negative pressure therapy for the abdominal ulcerations with the 8 cm of tunneling. She's being monitored with the surgeon and wound ostomy nurse for some of the separation at her stoma. 01/07/2018 patient is without new complaints. Doing well with current antimicrobial therapy of Rocephin, metronidazole and fluconazole. Wound VAC continues as well as her ostomy care. Will need rehab at discharge plans in place with the social work team as to LTAC versus inpatient rehab. Status: Acute Code(s): A41.51 - SEPSIS DUE TO ESCHERICHIA COLI [E. COLI] SNOMED Code(s): 976145086 (2) Urinary tract infection Current Visit: Yes Status: Acute Code(s): N39.0 - URINARY TRACT INFECTION, SITE NOT SPECIFIED SNOMED Code(s): 72042515 (3) Coronary artery disease involving left main coronary artery Current Visit: Yes Status: Chronic Code(s): I25.10 - ATHSCL HEART DISEASE OF [place] CORONARY ARTERY W/O ANG PCTRS SNOMED Code(s): 092333824 (4) Fever Current Visit: Yes Status: Acute Code(s): R50.9 - FEVER, UNSPECIFIED SNOMED Code(s): 553006210
[2018-01-07 16:41] LABS: Glucose,Whole Blood 173 mg/dL (75-99)
[2018-01-07 20:58] LABS: Glucose,Whole Blood 145 mg/dL (75-99)
[2018-01-08] MEDS: oxyCODONE ER 20 MG TAB.ER.12H PO SCH ×4 (00:19→23:41)
[2018-01-08] MEDS: HEPARIN SODIUM,PORCINE 5,000 UNIT/ML 1 ML VIAL SQ SCH ×4 (00:19→23:41)
[2018-01-08 02:13] LABS: Glucose,Whole Blood 125 mg/dL (75-99)
[2018-01-08] MEDS: INSULIN ASPART 100 UNIT/ML 1 ML 10 ML VIAL SQ SCH ×5 (02:17→21:05)
[2018-01-08 06:02] LABS: Glucose,Whole Blood 106 mg/dL (75-99)
[2018-01-08] MEDS: LEVOTHYROXINE 75 MCG TAB PO SCH (06:34)
[2018-01-08] MEDS: PANTOPRAZOLE 40 MG TABLET PO SCH (06:34)
[2018-01-08 06:48] LABS: Anisocytosis Slight; Basophils # (A) 0.1 k/uL (0-0.2); Basophils % (A) 1 %; Eosinophils # (A) 0.3 k/uL (0-0.7); Eosinophils % (A) 2 %; HCT 25.6 % (34.0-46.0); HGB 7.7 gm/dL (11.4-16.0); Hypochromasia Moderate; Lymphocytes # (A) 1.5 k/uL (1.0-4.8); Lymphocytes % (A) 9 %; MCH 25.7 pg (25.0-35.0); MCHC 30.1 g/dL (31.0-37.0); MCV 85.4 fL (80.0-100.0); Mean Platelet Volume 6.9; Monocytes % (A) 6 %; Neutrophils # (A) 14.2 k/uL (1.3-7.7); Neutrophils % (A) 81 %; Platelet Count 784 k/uL (150-450); RDW 16.5 % (11.5-15.5); WBC 17.6 k/uL (3.8-10.6)
[2018-01-08] MEDS: IPRATROPIUM-ALBUTEROL 3 ML NEB INHALATION SCH ×4 (07:08→19:32)
[2018-01-08 07:31] LABS: Anion Gap 6 mmol/L; Blood Urea Nitrogen 5 mg/dL (7-17); Calcium 7.8 mg/dL (8.4-10.2); Carbon Dioxide 31 mmol/L (22-30); Chloride 98 mmol/L (98-107); Glucose 99 mg/dL (74-99); Potassium 3.5 mmol/L (3.5-5.1); Sodium 135 mmol/L (137-145)
[2018-01-08] MEDS: ASPIRIN 81 MG PO SCH (08:43)
[2018-01-08] MEDS: hydrALAZINE HCL 10 MG TAB PO SCH ×3 (08:43→21:05)
[2018-01-08] MEDS: METOPROLOL TARTRATE 25 MG TAB PO SCH ×2 (08:43→21:05)
[2018-01-08] MEDS: CLOPIDOGREL 75 MG TAB PO SCH (08:44)
[2018-01-08] MEDS: FUROSEMIDE 40 MG TAB PO SCH ×2 (08:44→16:00)
[2018-01-08] MEDS: ATORVASTATIN 40 MG TAB PO SCH ×2 (08:44→12:30)
[2018-01-08] MEDS: metroNIDAZOLE 500 MG TAB PO SCH ×3 (08:44→21:05)
[2018-01-08] MEDS: DULoxetine HCL 60 MG CAPSULE.DR PO SCH (08:45)
[2018-01-08] MEDS: AMIODARONE 200 MG TAB PO SCH (08:45)
[2018-01-08] MEDS: FLUCONAZOLE 100 MG TAB PO SCH (08:45)
[2018-01-08] MEDS: cefTRIAXone IN SWFI 1,000 MG/10 ML SYRINGE IVP SCH (08:50)
--- NOTE | 2018-01-08 10:53 | P.PN ---
Subjective Progress Note Date: 01/08/18 Principal diagnosis: Coronary artery disease with critical left main disease. Preserved left ventricular function. Previous medical history of hypertension, hyperlipidemia , diabetes mellitus with preoperative hemoglobin A1c 8.1%, hypothyroid, chest granulomatous disease, peripheral vascular disease status post right fem-pop bypass, previous tobacco dependence with preoperative FEV1 109% of predicted in November 2016, recent fall in June 2017 with torn right rotator cuff, questionable DVT with previous Coumadin use greater than 2 years ago, syncopal episodes, history of paroxysmal atrial fibrillation, chronic low back pain, obesity, depression and preoperative E. coli urinary tract infection. POD #28 urgent quadruple coronary artery bypass grafting using the left internal mammary artery sequentially to the diagonal coronary artery and to the left anterior descending coronary artery, a reverse greater saphenous vein graft from the aorta to the first obtuse marginal coronary artery, a reverse greater saphenous vein graft from the aorta to the third obtuse marginal coronary artery. Bilateral pulmonary vein isolation using the AtriCure radiofrequency clamp. Exclusion of the left atrial appendage using a 35 mm AtriClip. Intraoperative transesophageal echocardiogram and epi-aortic scanning. POD #18 right colectomy, transverse colectomy, takedown splenic flexure, ileostomy performed by Dr. Montoya Postoperative elevation in transaminases, an unexpected outcome, resolving. Leukocytosis, present preoperatively. Postoperative diarrhea, an unexpected outcome. Postoperative normochromic, normocytic anemia, an expected outcome of surgery secondary to cardiopulmonary bypass and hemodilution. Postoperative urinary retention, an unexpected outcome. Postoperative pneumoperitoneum, an unexpected outcome. Necrosis of the transverse colon, right colon and unexpected outcome. Sepsis, septic shock, an unexpected outcome. Postoperative prolonged mechanical ventilation, needed to be reintubated for second surgery, an unexpected outcome. Postoperative left-sided pleural effusion, an unexpected outcome of surgery. Resolving. Postoperative separation of ileostomy stoma, an unexpected outcome of surgery The patient is currently sitting up to the bedside chair. She is in no acute distress. Denies any complaints of pain or shortness of breath at this time. She remains afebrile. Wound ostomy nurse at bedside currently changing her wound VAC and completing ostomy care. The ileostomy stoma remains with some separation, per Dr. Montoya's recommendations we will continue to monitor. The patient reports that she ambulated and her room to the doorway 3 times yesterday. Encourage the patient to ambulate further today. Objective - Vital Signs Vital signs: Vital Signs Temp 98.4 F 01/08/18 04:00 Pulse 74 01/08/18 08:30 Resp 16 01/08/18 08:30 BP 125/64 01/08/18 08:30 Pulse Ox 94 L 01/08/18 08:30 Intake & Output 01/07/18 01/08/18 01/08/18 18:59 06:59 18:59 Intake Total 118 480 360 Output Total 1050 Balance -932 480 360 Intake: Oral 118 480 360 Output: Stool 1050 Other: Voiding Method Diaper Diaper Incontinent Incontinent ABP, PAP, CO, CI - Last Documented Arterial Blood Pressure 159/93 Pulmonary Artery Pressure 4/4 Cardiac Output 4.5 Cardiac Index 2.5 - Constitutional General appearance: Present: cooperative, no acute distress, obese - Respiratory Details: Lungs sounds essentially clear throughout, diminished her bilateral bases. Respirations are symmetrical and nonlabored. Oxygen saturation are 95% on room air. She is achieving 1500 mL on her incentive spirometry. - Cardiovascular Details: Regular rhythm and rate. S1 and S2 present, negative for S3, gallop or murmur. Sternum is stable. Remote telemetry showing normal sinus rhythm heart rate 73. Heart hugger is in place and she is demonstrating appropriate use. Knee- high KURT hose and sequential compression devices in place to bilateral lower extremities. Right upper basilic midline catheter present and patent. - Gastrointestinal Gastrointestinal Comment(s): Abdomen soft, nontender and nondistended. Active bowel sounds present in all 4 abdominal quadrants. Right lower quadrant ileostomy present with dark brown liquid stool. Tolerating oral intake. - Genitourinary Genitourinary Comment(s): Remains having episodes of incontinence. No documented residual per bladder scans. - Integumentary Integumentary Comment(s): Skin is warm and dry. No clubbing or cyanosis present. Midline sternal incision clean and dry and approximated. No drainage or redness present. Left lower extremity EVH site clean dry and approximated. No drainage or redness present. Midline abdominal incision clean and dry with open areas with granulating tissue present. Mid abdominal incision with andrei intact. Wound VAC dressing being changed at this time. Ileostomy stoma with stool present, separation present to the ileostomy stoma at about 1 to 2 o'clock. - Neurologic Neurologic: Present: CNII-XII intact - Musculoskeletal Musculoskeletal: Present: gait normal, generalized weakness, strength equal bilaterally - Psychiatric Psychiatric Comment(s): Flat defect Psychiatric: Present: A&O x's 3, intact judgment & insight - Allied health notes Allied health notes reviewed: nursing - Labs CBC & Chem 7: 01/08/18 06:28 01/08/18 06:28 Labs: Abnormal Lab Results - Last 24 Hours (Table) 01/07/18 01/07/18 01/07/18 Range/Units 11:20 16:39 20:57 WBC (3.8-10.6) k/uL RBC (3.80-5.40) m/uL Hgb (11.4-16.0) gm/dL Hct (34.0-46.0) % MCHC (31.0-37.0) g/dL RDW (11.5-15.5) % Plt Count (150-450) k/uL Neutrophils # (1.3-7.7) k/uL Sodium (137-145) mmol/L Carbon Dioxide (22-30) mmol/L BUN (7-17) mg/dL POC Glucose (mg/dL) 204 H 173 H 145 H (75-99) mg/dL Calcium (8.4-10.2) mg/dL 01/08/18 01/08/18 01/08/18 Range/Units 02:11 06:01 06:28 WBC 17.6 H (3.8-10.6) k/uL RBC 3.00 L (3.80-5.40) m/uL Hgb 7.7 L (11.4-16.0) gm/dL Hct 25.6 L (34.0-46.0) % MCHC 30.1 L (31.0-37.0) g/dL RDW 16.5 H (11.5-15.5) % Plt Count 784 H (150-450) k/uL Neutrophils # 14.2 H (1.3-7.7) k/uL Sodium (137-145) mmol/L Carbon Dioxide (22-30) mmol/L BUN (7-17) mg/dL POC Glucose (mg/dL) 125 H 106 H (75-99) mg/dL Calcium (8.4-10.2) mg/dL 01/08/18 Range/Units 06:28 WBC (3.8-10.6) k/uL RBC (3.80-5.40) m/uL Hgb (11.4-16.0) gm/dL Hct (34.0-46.0) % MCHC (31.0-37.0) g/dL RDW (11.5-15.5) % Plt Count (150-450) k/uL Neutrophils # (1.3-7.7) k/uL Sodium 135 L (137-145) mmol/L Carbon Dioxide 31 H (22-30) mmol/L BUN 5 L (7-17) mg/dL POC Glucose (mg/dL) (75-99) mg/dL Calcium 7.8 L (8.4-10.2) mg/dL Microbiology - Last 24 Hours (Table) 01/01/18 21:38 Blood Culture - Final Blood No Growth after 144 hours - Imaging and Cardiology Chest x-ray: report reviewed, image reviewed Assessment and Plan (1) Diarrhea in adult patient Current Visit: Yes Status: Acute Code(s): R19.7 - DIARRHEA, UNSPECIFIED SNOMED Code(s): 02857718 (2) Chronic low back pain Current Visit: Yes Status: Chronic Code(s): M54.5 - LOW BACK PAIN; G89.29 - OTHER CHRONIC PAIN SNOMED Code(s): 631055447 (3) Coronary artery disease involving left main coronary artery Current Visit: Yes Status: Chronic Code(s): I25.10 - ATHSCL HEART DISEASE OF [place] CORONARY ARTERY W/O ANG PCTRS SNOMED Code(s): 147486855 (4) Diabetes Current Visit: Yes Status: Chronic Code(s): E11.9 - TYPE 2 DIABETES MELLITUS WITHOUT COMPLICATIONS SNOMED Code(s): 98277061 (5) Family history of heart disease Current Visit: Yes Status: Chronic Code(s): Z82.49 - FAMILY HX OF ISCHEM HEART DIS AND OTH DIS OF THE CIRC SYS SNOMED Code(s): 484945564 (6) Hyperlipidemia Current Visit: Yes Status: Chronic Code(s): E78.5 - HYPERLIPIDEMIA, UNSPECIFIED SNOMED Code(s): 48651614 (7) Hypertension Current Visit: Yes Status: Chronic Code(s): I10 - ESSENTIAL (PRIMARY) HYPERTENSION SNOMED Code(s): 28642576 (8) Hypothyroid Current Visit: Yes Status: Chronic Code(s): E03.9 - HYPOTHYROIDISM, UNSPECIFIED SNOMED Code(s): 33165853 (9) Peripheral vascular disease Current Visit: Yes Status: Chronic Code(s): I73.9 - PERIPHERAL VASCULAR DISEASE, UNSPECIFIED SNOMED Code(s): 940906773 (10) History of DVT (deep vein thrombosis) Current Visit: No Status: Resolved Code(s): Z86.718 - PERSONAL HISTORY OF OTHER VENOUS THROMBOSIS AND EMBOLISM SNOMED Code(s): 674710664 (11) History of atrial fibrillation Current Visit: No Status: Resolved Code(s): Z86.79 - PERSONAL HISTORY OF OTHER DISEASES OF THE CIRCULATORY SYSTEM SNOMED Code(s): 349217588 (12) Tobacco dependence in remission Current Visit: No Status: Resolved Code(s): F17.201 - NICOTINE DEPENDENCE, UNSPECIFIED, IN REMISSION SNOMED Code(s): 774056635 (13) Intestinal necrosis Current Visit: Yes Status: Acute Code(s): K55.069 - ACUTE INFARCTION OF INTESTINE, PART AND EXTENT UNSPECIFIED SNOMED Code(s): 06926229 (14) Ileostomy in place Current Visit: Yes Status: Acute Code(s): Z93.2 - ILEOSTOMY STATUS SNOMED Code(s): 518947804 (15) Ileostomy care Current Visit: Yes Status: Acute Code(s): Z43.2 - ENCOUNTER FOR ATTENTION TO ILEOSTOMY SNOMED Code(s): 895988373 (16) Ischemic colitis Current Visit: Yes Status: Acute Code(s): K55.9 - VASCULAR DISORDER OF INTESTINE, UNSPECIFIED SNOMED Code(s): 63291705 Plan: 1. Continue low dose aspirin, statin, plavix, Norvasc, hydralazine and beta sheree. Will increase her beta sheree as tolerated. 2. Continue Lasix 40 mg by mouth twice a day. Replace past potassium per protocol. Replace magnesium per protocol 3. Continue Rocephin, Flagyl and Diflucan managed by Dr. Mccartney from infectious disease. 4. Continue amiodarone for A. fib prophylaxis. Currently on amiodarone 200 mg by mouth daily. 5. Encourage use of her incentive spirometry every hour while awake. 6. Monitor daily labs, chest x-rays. Pre-albumin less than 5.0 on 12/31/2017. 7. GI/DVT prophylaxis. 8. Pain control with current medication regimen. 9. Bronchodilators management per pulmonology. 10. Insulin/diabetic management per primary care service. 11. Wound VAC management per general surgery recommendations to her abdominal incisions. VAC dressing and ileostomy dressing change today by the wound ostomy care nurse. 12. Continue bladder scans after each void or every 6 hours. If greater than 300 mL residual please straight cath. 13. Increase activity as tolerated, physical therapy/occupational therapy and cardiac rehab following. 14. Discharge planning in place. We will be discharged to subacute rehab when appropriate. 15. Ileostomy stoma care recommendations per Dr. Montoya 16. Increase activity as tolerated, PT/OT/cardiac rehab following. 17. More recommendations to follow based on patient's clinical course. Time with Patient: Greater than 30
--- NOTE | 2018-01-08 11:41 | P.PN ---
Subjective Progress Note Date: 01/08/18 72-year-old female seen sitting up in a chair. Continues to look more awake and alert Ostomy nurse at the bedside changing wound VAC and ostomy appliance dark brown soft thick stool in the ileostomy noted ostomy nurse indicates separation present to the ileostomy stoma at about 1 to 2:00 no redness noted around surgical incision sites December 20 right colectomy transverse colectomy, takedown splenic flexure, ileostomy. due to perforated perforated viscus with necrosis of the transverse colon right colon Objective - Vital Signs Vital signs: Vital Signs Temp 98.4 F 01/08/18 04:00 Pulse 74 01/08/18 08:30 Resp 16 01/08/18 08:30 BP 125/64 01/08/18 08:30 Pulse Ox 94 L 01/08/18 08:30 Intake & Output 01/07/18 01/08/18 01/08/18 18:59 06:59 18:59 Intake Total 118 480 360 Output Total 1050 Balance -932 480 360 Intake: Oral 118 480 360 Output: Stool 1050 Other: Voiding Method Diaper Diaper Diaper Incontinent Incontinent Incontinent ABP, PAP, CO, CI - Last Documented Arterial Blood Pressure 159/93 Pulmonary Artery Pressure 4/4 Cardiac Output 4.5 Cardiac Index 2.5 - Exam Exam 72-year-old female sitting up in a chair pleasant cooperative oriented 3 currently denying any abdominal pain tolerating diet Lungs adequate air movement 94% sat room air no shortness of Heart S1-S2 audible regular Abdomen wound VAC changed today by ostomy nurse incision dry ostomy moderate amount of stool brown soft incontinent urine soft nondistended nontender tolerating diet Extremities decrease edema to the bilateral lower extremities below the knee KURT [place] on - Labs CBC & Chem 7: 01/08/18 06:28 01/08/18 06:28 Labs: Abnormal Lab Results - Last 24 Hours (Table) 01/07/18 01/07/18 01/07/18 Range/Units 11:20 16:39 20:57 WBC (3.8-10.6) k/uL RBC (3.80-5.40) m/uL Hgb (11.4-16.0) gm/dL Hct (34.0-46.0) % MCHC (31.0-37.0) g/dL RDW (11.5-15.5) % Plt Count (150-450) k/uL Neutrophils # (1.3-7.7) k/uL Sodium (137-145) mmol/L Carbon Dioxide (22-30) mmol/L BUN (7-17) mg/dL POC Glucose (mg/dL) 204 H 173 H 145 H (75-99) mg/dL Calcium (8.4-10.2) mg/dL 01/08/18 01/08/18 01/08/18 Range/Units 02:11 06:01 06:28 WBC 17.6 H (3.8-10.6) k/uL RBC 3.00 L (3.80-5.40) m/uL Hgb 7.7 L (11.4-16.0) gm/dL Hct 25.6 L (34.0-46.0) % MCHC 30.1 L (31.0-37.0) g/dL RDW 16.5 H (11.5-15.5) % Plt Count 784 H (150-450) k/uL Neutrophils # 14.2 H (1.3-7.7) k/uL Sodium (137-145) mmol/L Carbon Dioxide (22-30) mmol/L BUN (7-17) mg/dL POC Glucose (mg/dL) 125 H 106 H (75-99) mg/dL Calcium (8.4-10.2) mg/dL 01/08/18 Range/Units 06:28 WBC (3.8-10.6) k/uL RBC (3.80-5.40) m/uL Hgb (11.4-16.0) gm/dL Hct (34.0-46.0) % MCHC (31.0-37.0) g/dL RDW (11.5-15.5) % Plt Count (150-450) k/uL Neutrophils # (1.3-7.7) k/uL Sodium 135 L (137-145) mmol/L Carbon Dioxide 31 H (22-30) mmol/L BUN 5 L (7-17) mg/dL POC Glucose (mg/dL) (75-99) mg/dL Calcium 7.8 L (8.4-10.2) mg/dL Microbiology - Last 24 Hours (Table) 01/01/18 21:38 Blood Culture - Final Blood No Growth after 144 hours Assessment and Plan Assessment: Impression Ischemic colitis resolving stool for C. diff negative Postop diarrhea 9 expected outcome Postop urgent quadruple coronary artery bypass grafting using left internal mammary Echocardiogram preserved LV function Sudden onset of abdominal pain postoperative suspect due to free air. As evident on a CAT scan of the abdomen and pelvis Right colectomy, transverse colectomy, takedown splenic flexure, ileostomy for Perforated viscus done on December 20 Necrosis of transverse colon, right colon and on expected outcome Deconditioned suspect due to prolonged length of stay Leukocytosis present preoperatively Postoperative diarrhea unexpected outcome Postoperative pneumoperitoneum mucutaneous juncture separation from 1-3 with questionable fistulous active functioning bowel Plan Discharge plan per the attending Ileostomy care Ileostomy teaching as appropriate Wound VAC as ordered changed January 08 Continue postop surgical care care PT OT eval Will follow with you with further recommendations as clinical course indicates The above impression and plan of care have been discussed and directed by signing physician. Missy Baca nurse practitioner acting as scribe for signing physician.
[2018-01-08 11:55] LABS: Glucose,Whole Blood 154 mg/dL (75-99)
[2018-01-08] MEDS: NYSTATIN 100,000 UNIT/ML SUSP 500,000 UNIT/5 ML CUP PO SCH ×4 (12:29→21:06)
[2018-01-08] MEDS: CYANOCOBALAMIN 500 MCG TAB PO SCH (12:30)
[2018-01-08] MEDS: FERROUS SULFATE 325 MG TAB PO SCH (12:31)
[2018-01-08] MEDS: ASCORBIC ACID 500 MG TAB PO SCH (12:31)
--- NOTE | 2018-01-08 12:31 | P.PN ---
Subjective Progress Note Date: 01/08/18 Principal diagnosis: On 01/08/2018, the patient is stable without any complaints. 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 The ileostomy site is functional and the bag is full of feces. The patient also has a wound VAC which is being switch every 2 days. She is laying down comfortably in bed. She is on the same antibiotic coverage includes a combination of Rocephin and Flagyl and Diflucan. No fever. Hemodynamically stable. No chest pain. Sternum stable clean and intact his cardiac rhythm is sinus. No active pulmonary issues for now. Using incentive spirometer. Unable to discharge this patient to an LTAC for insurance related problems. Objective - Vital Signs Vital signs: Vital Signs Temp 98.4 F 01/08/18 04:00 Pulse 74 01/08/18 08:30 Resp 16 01/08/18 08:30 BP 125/64 01/08/18 08:30 Pulse Ox 94 L 01/08/18 08:30 Intake & Output 01/07/18 01/08/18 01/08/18 18:59 06:59 18:59 Intake Total 118 480 360 Output Total 1050 Balance -932 480 360 Intake: Oral 118 480 360 Output: Stool 1050 Other: Voiding Method Diaper Diaper Diaper Incontinent Incontinent Incontinent # Voids 2 ABP, PAP, CO, CI - Last Documented Arterial Blood Pressure 159/93 Pulmonary Artery Pressure 4/4 Cardiac Output 4.5 Cardiac Index 2.5 - Exam - Constitutional General appearance: Present: cooperative, no acute distress, obese - Respiratory Details: Lungs sounds slightly diminished bilaterally. Respirations even, nonlabored. Currently on room air with oxygen saturation 95%. Able to achieve 1000 mL on her incentive spirometry. Strong, nonproductive cough. - Cardiovascular Details: S1, S2 present. Regular rate and rhythm, sinus rhythm on telemetry. Sternum stable. Palpable peripheral pulses bilaterally. Trace bilateral lower extremity pitting edema present. Right upper basilic vein midline catheter present, day #12. Heart hugger in place with patient demonstrating appropriate use. Antiembolism stockings, SCDs present. - Gastrointestinal Gastrointestinal Comment(s): Abdomen soft, nontender, nondistended. Active bowel sounds present. Right lower quadrant ileostomy present with dark brown liquid stool. Tolerating diet. - Genitourinary Genitourinary Comment(s): Patient remains incontinent of urine but is voiding with no documented residual per bladder scan. - Integumentary Integumentary Comment(s): Skin is warm and dry. Anterior chest incision well approximated with dry intact dressing present. Left lower semi-EVH site well approximated. Midline abdominal incision clean, andrei intact, wound VAC present with 250 mL drainage currently in the canister. - Neurologic Neurologic: Present: CNII-XII intact - Musculoskeletal Musculoskeletal: Present: generalized weakness, strength equal bilaterally - Psychiatric Psychiatric: Present: A&O x's 3, appropriate affect, intact judgment & insight - Labs CBC & Chem 7: 01/08/18 06:28 01/08/18 06:28 Labs: Abnormal Lab Results - Last 24 Hours (Table) 01/07/18 01/07/18 01/08/18 Range/Units 16:39 20:57 02:11 WBC (3.8-10.6) k/uL RBC (3.80-5.40) m/uL Hgb (11.4-16.0) gm/dL Hct (34.0-46.0) % MCHC (31.0-37.0) g/dL RDW (11.5-15.5) % Plt Count (150-450) k/uL Neutrophils # (1.3-7.7) k/uL Sodium (137-145) mmol/L Carbon Dioxide (22-30) mmol/L BUN (7-17) mg/dL POC Glucose (mg/dL) 173 H 145 H 125 H (75-99) mg/dL Calcium (8.4-10.2) mg/dL 01/08/18 01/08/18 01/08/18 Range/Units 06:01 06:28 06:28 WBC 17.6 H (3.8-10.6) k/uL RBC 3.00 L (3.80-5.40) m/uL Hgb 7.7 L (11.4-16.0) gm/dL Hct 25.6 L (34.0-46.0) % MCHC 30.1 L (31.0-37.0) g/dL RDW 16.5 H (11.5-15.5) % Plt Count 784 H (150-450) k/uL Neutrophils # 14.2 H (1.3-7.7) k/uL Sodium 135 L (137-145) mmol/L Carbon Dioxide 31 H (22-30) mmol/L BUN 5 L (7-17) mg/dL POC Glucose (mg/dL) 106 H (75-99) mg/dL Calcium 7.8 L (8.4-10.2) mg/dL 01/08/18 Range/Units 11:30 WBC (3.8-10.6) k/uL RBC (3.80-5.40) m/uL Hgb (11.4-16.0) gm/dL Hct (34.0-46.0) % MCHC (31.0-37.0) g/dL RDW (11.5-15.5) % Plt Count (150-450) k/uL Neutrophils # (1.3-7.7) k/uL Sodium (137-145) mmol/L Carbon Dioxide (22-30) mmol/L BUN (7-17) mg/dL POC Glucose (mg/dL) 154 H (75-99) mg/dL Calcium (8.4-10.2) mg/dL Microbiology - Last 24 Hours (Table) 01/01/18 21:38 Blood Culture - Final Blood No Growth after 144 hours Assessment and Plan Plan: #1. Multivessel coronary artery disease, involving left main coronary artery. Status post coronary artery bypass grafting. Postoperative day #28 #2. Acute sepsis secondary to an acute perforated viscus with necrosis of the transverse and right colon and the patient is status post right colectomy, transverse colectomy and takedown of splenic flexure with ileostomy. Small dehiscence at the 1 to 3 o'clock position, surgical services following. Wound VAC in place . The acute septic event is completely recovered and the patient is completing a course of antibiotics. Antibiotic coverage includes Rocephin, Flagyl and oral Diflucan. The patient has still a wound VAC in place. 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 Acute hypoxic respiratory failure secondary to above, recovered. #4. Diabetes mellitus 2 #5. Obesity #6. Peripheral vascular disease #7. History of nicotine dependence, currently in remission, quit 10 years ago, carries [id number]-bcla smoking history #8. Hypothyroidism #9. Paroxysmal atrial fibrillation, currently in sinus rhythm #10. Chronic low back pain #11. Depression #12. Urinary tract infection secondary to E. coli, follow-up culture negative #13. Hypertension. Plan Operative ileostomy output. Enterocutaneous patient was noted. Pulmonary status is stable. Continue antibiotic course. Increase activity as tolerated. Physical therapy. We'll follow.
[2018-01-08 12:32] LABS: Phosphorus 3.7 mg/dL (2.5-4.5)
[2018-01-08] MEDS: POTASSIUM CHLORIDE ER 20 MEQ TAB.ER PO SCH ×2 (12:35→13:45)
[2018-01-08 14:02] VITALS: BMI 34.2
--- NOTE | 2018-01-08 14:53 | PN ---
PROGRESS NOTE DATE OF SERVICE: 01/07/2018 PRESENTING COMPLAINT: Tired. INTERVAL HISTORY: Patient was seen by me yesterday on 01/07/2018. Patient is status post CABG followed by ischemic bowel and bowel perforation. As a result, ileostomy and a wound VAC in place. Today, lying in bed. No new issues. Tolerating some diet. Ileostomy functioning. Breathing is stable. Antibiotics to continue. Has been out of bed. REVIEW OF SYSTEMS: Done for constitutional, cardiovascular, GI, pulmonary; relevant findings as above. CURRENT MEDICATIONS: Reviewed that include DuoNeb, p.o. Cordarone, IV ceftriaxone, p.o. Diflucan and p.o. Flagyl. PHYSICAL EXAMINATION: Temperature 96.5, pulse 71, respiratory 18, blood pressure 96/46, pulse ox 95% on room air. GENERAL: Lying in bed, awake. EYES: Pupils equal, conjunctivae are pale. HEENT: External appearance of nose and ears normal, oral cavity normal. NECK: JVD unable to assess. Mass not palpable. RESPIRATORY: Effort normal. LUNGS: Diminished breath sounds. CARDIOVASCULAR: First and second sounds are normal, no edema. ABDOMEN: Soft, nontender. ileostomy bag in place, stool in place. Wound VAC in place. PSYCHIATRY: Alert and oriented x3. Mood and affect normal. INVESTIGATIONS: White count 18.6, hemoglobin 7.7, platelets 151, potassium 4.1. Accu-Cheks are noted. ASSESSMENT: 1. Coronary artery disease, status post coronary artery bypass on December 11. 2. Acute ischemic bowel with perforation and right transverse colectomy, takedown ischemic portion resulting in ileostomy. 3. Abdominal wound VAC in place. 4. Acute hypoxic respiratory failure, status post ventilator support, now on nasal cannula. 5. Hypotensive in septic shock, now recovered. 6. Paroxysmal atrial fibrillation, now in sinus rhythm. 7. Peripheral artery disease. 8. Hypothyroid. 9. Diabetes mellitus type 2. 10.Chronic low back pain from arthritis. 11.Depression, not otherwise specified. 12.Obesity; body mass index 34.3. 13.Acute blood loss anemia, expected from surgery and hospital-acquired for blood draws. 14.Hyperlipidemia. 15.Hypoalbuminemia as an acute phase reactant. 16.Bilateral pleural effusion, postsurgical. 17.Essential hypertension. 18.Leukocytosis, probably reactive from inflammation, postsurgical. PLAN: Continue current medication and treatment plan. Care was discussed with the patient. licensing worker looking into placement. MMODL / IJN: [id number] /
[2018-01-08 16:38] LABS: Glucose,Whole Blood 168 mg/dL (75-99)
--- NOTE | 2018-01-08 19:41 | PN ---
PROGRESS NOTE DATE OF SERVICE: 01/08/18. PRESENT COMPLAINT: Tired. INTERVAL HISTORY: The patient is status post CABG followed by ischemic bowel and bowel perforation. Today the patient is working with physical therapy. Did tolerate a diet. Edema still present. Pain is controlled. No new issues. REVIEW OF SYSTEMS: Done for constitutional, cardiovascular, GI, pulmonary; relevant findings as above. CURRENT MEDICATIONS: Reviewed that include DuoNeb, IV ceftriaxone, p.o. Diflucan, p.o. Lasix 40 mg b.i.d., Lopressor and Flagyl. PHYSICAL EXAMINATION: Temperature 97.7, pulse 77, respirations 16, blood pressure 123/70, pulse ox 96 percent on room air. GENERAL APPEARANCE: Sitting up in a chair, comfortable, awake. EYES: Pupils equal. Conjunctivae pale. HEENT: External appearance of nose and ears normal. Oral cavity normal. NECK: JVD unable to assess. Mass not palpable. Respiratory effort normal. LUNGS: Diminished breath sounds. CARDIOVASCULAR: First and second sounds normal. Edema present. ABDOMEN: Soft, nontender. Ileostomy bag in place with stool. Wound VAC in place. PSYCHIATRY: Alert and oriented x3. Mood and affect is normal. INVESTIGATIONS: White count 17.6, hemoglobin 7.7, platelets 74. Potassium 3.5, BUN 5, creatinine 0.55. ASSESSMENT: 1. Coronary artery disease status post coronary bypass on December 11. 2. 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 3. Abdominal wound VAC in place. 4. Acute hypoxic respiratory failure status post ventilator support now on nasal cannula. 5. Hypotensive and septic shock, now recovered. 6. Paroxysmal atrial fibrillation, now in sinus rhythm. 7. Peripheral artery disease. 8. Hypothyroid. 9. Diabetes mellitus type 2. 10.Chronic low back pain from arthritis. 11.Depression, not otherwise specified. 12.Obesity; BMI 34.3. 13.Acute blood loss anemia expected from surgery and hospital acquired for blood draws. 14.Hyperlipidemia. 15.Hypoalbuminemia as an acute phase reactant. 16.Bilateral pleural effusion, postsurgical. 17.Essential hypertension. 18.Leukocytosis probably reactive from inflammation postsurgical. PLAN: Continue medication and treatment plan. Awaiting placement. Care was discussed the patient. MMODL / IJN: [id number] /
[2018-01-08 20:58] LABS: Glucose,Whole Blood 137 mg/dL (75-99)
--- NOTE | 2018-01-08 22:09 | P.PN ---
Subjective Progress Note Date: 01/08/18 This is a 72-year-old female patient who initially underwent a stress test that was positive followed by a heart catheterization that showed significant disease in the left main, mid LAD and ostial circumflex. She then underwent an urgent CABG 4 vessel on December 11. Patient seems to have been recovering well until yesterday. She was noted to develop a fever of 102.6, lactic acid was 2.3 and also liver enzymes elevated. She had been treated for E. coli urinary tract infection that was present on admission with Rocephin. Her antibiotics were then changed to Zosyn and vancomycin. Patient also had some hypersomnolence and confusion yesterday for which her narcotics were changed from oxycodone which she chronically takes for back pain and switched to Ace every 6, IV Tylenol and Toradol and patient continues to have significant back pain. She denies chest pain, shortness of breath, nausea or vomiting. She denies any diarrhea. She does have decreased appetite which is been going on since admission. She states that she feels better from yesterday and recognizes that she was lethargic yesterday. Today. she has been up for shower and has had a bowel movement. Patient had low urine output yesterday and received a dose of Lasix. She had a CAT scan of the brain that showed cerebral atrophy and chronic small vessel ischemia. No acute intracranial process. She states that she was coughing a lot this morning but no denies shortness of breath. Chest x-ray from this morning shows minimal pulmonary vascular congestion cannot be exaggerated by low lung volumes in addition to persistent unchanged retrocardiac airspace disease, likely atelectasis and trace pleural effusions. Patient was using incentive spirometer 2000 mL she yesterday. She has had no significant wound concerns. Chest tubes and Almaguer are out. Patient denies any burning or pain with urination. . Now back in the intensive care unit she's had some abdominal pain and with worsening of her status including lactic acidosis to was concerns to ischemic colitis. She has been seen by surgery is being closely followed. She is on antimicrobial therapy with piperacillin tazobactam and vancomycin which would give coverage for ischemic colitis. Severe back pain is modestly controlled at this time. Patient is given a fluid bolus it appears that her lactic acid has dropped from 3.5-1.0. Fluids were also changed from lactated Ringer's to D5/ 0.45% NaCl with 20 mEq of KCl 12/18/2017 patient is sitting up in the chair looking considerably better. She has some clear liquids that she is able to ingest. Abdominal pain is improved. She is not having further fever or hypotension. Lactic acid is improved 12/21/2017 the patient had a significant change of her status and was found evidence of a perforated viscus and consequently the operating room yesterdaywhere exploratory laparotomy was performed, there is evidence of necrosis the transverse colon and of the right colon and consequently colectomy was performed in ileostomy was placed. Postoperatively the patient is now having some improvement. Vasopressor therapy has been held. Oxygenation is stable and she has no new complication. 12/22/2017 patient has had some improvement today that she is extubated and is stable after this has occurred. She is in no vasopressor therapy, has adequate oxygenation and urinary output. He is receiving some peripheral nutrition while her gastrointestinal function recovers. December 24 2017 patient continues to have improvement. Doing well extubated and off vasopressor therapy. Is awaiting recovery of her gastrointestinal function. Abdominal pain is minimal. She's been up in the chair without difficulties and is doing well with her incentive spirometry. 12/25/2017 and further improvement. She's been able to maintain her extubated status and other than complaints of ongoing severe back pain that has been a long-standing problem continued to have improvement. Initially her pain is worse today than yesterday. Primary service is trying to reduce her medications. 12/27/2017 patient has further improvement. Pain is more comfortable today. Less complaints of pain. Padded well sitting up in a chair. Breathing is going well and is denying much discomfort at this time. 01/03/2018 the patient is much more comfortable on the last evaluation. Sitting up in the chair relating that her severe pain is under good control at this time. She's been able to ambulate in her room with a walker to the doorway which is considerably improved from 4 days ago. She still extremely weak but is denying fevers or chills. Her appetite is improved and she denies nausea or emesis. 01/05/2018 patient with some improvement of strength, but has been found to have some separation of the stoma. Has been seen by surgery with no plans for surgery at this time. CT surgery is following with no new plans. Summary 2018 patient continues to have some improvement of her overall strength. Appetite is improved. She's having no pain in the abdominal wall with the stoma. No fevers or chills. 01/06/2018 patient has had some further improvement and continues to have the teamwork before her discharge plan hopefully LTAC, possibly which her [facility] inpatient rehab. This is discussed with the hospitalist. 01/08/2018 patient has further improvement. The plan of care is discussed with the cardiothoracic team as well as the . We'll likely go to [facility] for rehab. Objective - Vital Signs Vital signs: Vital Signs Temp 97.8 F 01/08/18 15:50 Pulse 80 01/08/18 19:41 Resp 16 01/08/18 15:50 BP 130/77 01/08/18 15:50 Pulse Ox 95 01/08/18 19:35 Intake & Output 01/08/18 01/08/18 01/09/18 06:59 18:59 06:59 Intake Total 480 1200 Balance 480 1200 Weight 82 kg Intake: Oral 480 1200 Other: Voiding Method Diaper Diaper Incontinent Incontinent # Voids 2 3 ABP, PAP, CO, CI - Last Documented Arterial Blood Pressure 159/93 Pulmonary Artery Pressure 4/4 Cardiac Output 4.5 Cardiac Index 2.5 - Exam Gen: This is a 72-year-old female. supine she is extubated and comfortable HEENT: Head is atraumatic, normocephalic. Pupils equal, round. Sclerae is anicteric. Mucous members of the mouth are moist. NECK: Supple. No JVD. No lymphadenopathy. No thyromegaly. LUNGS: Clear to auscultation. No wheezes or rhonchi. No intercostal retractions. HEART: Regular rate and rhythm. No murmur. Sternal wound is intact. No significant drainage, erythema. ABDOMEN: recent surgery ileostomy in place large amount of bilious material is noted. Bowel sounds are quiet.the separation of the stoma was reported. EXTREMITIES: No pedal edema. Wound and left lower extremity shows no signs of infection. No drainage, significant erythema or edema. NEUROLOGICAL: Patient is awake alert and interactive Skin the surgical site the chest wall is intact without erythema crepitance or fluctuance vein harvest site is intact. abdominal incision has the wound VAC in place has 8cm of tunneling, and it' is functioning well - Labs CBC & Chem 7: 01/08/18 06:28 01/08/18 06:28 Labs: Abnormal Lab Results - Last 24 Hours (Table) 01/08/18 01/08/18 01/08/18 Range/Units 02:11 06:01 06:28 WBC 17.6 H (3.8-10.6) k/uL RBC 3.00 L (3.80-5.40) m/uL Hgb 7.7 L (11.4-16.0) gm/dL Hct 25.6 L (34.0-46.0) % MCHC 30.1 L (31.0-37.0) g/dL RDW 16.5 H (11.5-15.5) % Plt Count 784 H (150-450) k/uL Neutrophils # 14.2 H (1.3-7.7) k/uL Sodium (137-145) mmol/L Carbon Dioxide (22-30) mmol/L BUN (7-17) mg/dL POC Glucose (mg/dL) 125 H 106 H (75-99) mg/dL Calcium (8.4-10.2) mg/dL 01/08/18 01/08/18 01/08/18 Range/Units 06:28 11:30 16:29 WBC (3.8-10.6) k/uL RBC (3.80-5.40) m/uL Hgb (11.4-16.0) gm/dL Hct (34.0-46.0) % MCHC (31.0-37.0) g/dL RDW (11.5-15.5) % Plt Count (150-450) k/uL Neutrophils # (1.3-7.7) k/uL Sodium 135 L (137-145) mmol/L Carbon Dioxide 31 H (22-30) mmol/L BUN 5 L (7-17) mg/dL POC Glucose (mg/dL) 154 H 168 H (75-99) mg/dL Calcium 7.8 L (8.4-10.2) mg/dL 01/08/18 Range/Units 20:57 WBC (3.8-10.6) k/uL RBC (3.80-5.40) m/uL Hgb (11.4-16.0) gm/dL Hct (34.0-46.0) % MCHC (31.0-37.0) g/dL RDW (11.5-15.5) % Plt Count (150-450) k/uL Neutrophils # (1.3-7.7) k/uL Sodium (137-145) mmol/L Carbon Dioxide (22-30) mmol/L BUN (7-17) mg/dL POC Glucose (mg/dL) 137 H (75-99) mg/dL Calcium (8.4-10.2) mg/dL Microbiology - Last 24 Hours (Table) 01/01/18 21:38 Blood Culture - Final Blood No Growth after 144 hours Laboratory Results WBC 17.6 k/uL (3.8-10.6) H 01/08/18 06:28 RBC 3.00 m/uL (3.80-5.40) L 01/08/18 06:28 Hgb 7.7 gm/dL (11.4-16.0) L 01/08/18 06:28 Hct 25.6 % (34.0-46.0) L 01/08/18 06:28 MCV 85.4 fL (80.0-100.0) 01/08/18 06:28 MCH 25.7 pg (25.0-35.0) 01/08/18 06:28 MCHC 30.1 g/dL (31.0-37.0) L 01/08/18 06:28 RDW 16.5 % (11.5-15.5) H 01/08/18 06:28 Plt Count 784 k/uL (150-450) H 01/08/18 06:28 Neutrophils % 81 % 01/08/18 06:28 Neutrophils % (Manual) 75 % 12/20/17 04:30 Band Neutrophils % 7 % 12/20/17 04:30 Lymphocytes % 9 % 01/08/18 06:28 Lymphocytes % (Manual) 7 % 12/20/17 04:30 Monocytes % 6 % 01/08/18 06:28 Monocytes % (Manual) 5 % 12/20/17 04:30 Eosinophils % 2 % 01/08/18 06:28 Eosinophils % (Manual) 2 % 12/20/17 04:30 Basophils % 1 % 01/08/18 06:28 Metamyelocytes % 3 % 12/20/17 04:30 Myelocytes % 3 % 12/20/17 04:30 Neutrophils # 14.2 k/uL (1.3-7.7) H 01/08/18 06:28 Neutrophils # (Manual) 11.70 k/uL (1.3-7.7) H 12/20/17 04:30 Lymphocytes # 1.5 k/uL (1.0-4.8) 01/08/18 06:28 Lymphocytes # (Manual) 1.00 k/uL (1.0-4.8) 12/20/17 04:30 Monocytes # 1.0 k/uL (0-1.0) 01/08/18 06:28 Monocytes # (Manual) 0.72 k/uL (0-1.0) 12/20/17 04:30 Eosinophils # 0.3 k/uL (0-0.7) 01/08/18 06:28 Eosinophils # (Manual) 0.29 k/uL (0-0.7) 12/20/17 04:30 Basophils # 0.1 k/uL (0-0.2) 01/08/18 06:28 Metamyelocytes # (Man) 0.43 k/uL (0) H 12/20/17 04:30 Myelocytes # (Manual) 0.43 k/uL (0) H 12/20/17 04:30 Nucleated RBCs 0 /100 WBC (0-0) 12/20/17 04:30 Manual Slide Review Performed 12/22/17 04:23 Toxic Granulation Present 12/22/17 04:23 Large Platelets Present 12/18/17 04:30 RBC Morphology Normal 12/11/17 16:55 Polychromasia Present 12/20/17 04:30 Hypochromasia Moderate 01/08/18 06:28 Poikilocytosis Slight 01/04/18 06:41 Poikilocytosis (manual Present 12/18/17 04:30 Anisocytosis Slight 01/08/18 06:28 PT 9.9 sec (9.0-12.0) 12/25/17 08:48 INR 1.0 (<1.2) 12/25/17 08:48 APTT 49.0 sec (22.0-30.0) H 12/19/17 04:14 Sample Site adina 12/22/17 10:36 ABG pH 7.42 (7.35-7.45) 12/22/17 10:36 ABG pCO2 26 mmHg (35-45) L 12/22/17 10:36 ABG pO2 100 mmHg (83-108) 12/22/17 10:36 ABG HCO3 17 mmol/L (21-25) L 12/22/17 10:36 ABG Total CO2 18 mmol/L (19-24) L 12/22/17 10:36 ABG O2 Saturation 98.3 % (94-97) H 12/22/17 10:36 ABG Base Excess -7.4 mmol/L 12/22/17 10:36 ABG Hematocrit 20 % (34.0-46.0) L* 12/11/17 12:13 Ju[place] Test Yes 12/22/17 04:10 ABG Sodium 136 mmol/L (135-146) 12/11/17 12:13 ABG Potassium 4.4 mmol/L (3.4-4.5) 12/11/17 12:13 ABG Ionized Calcium 4.2 mg/dL (4.5-5.3) L 12/11/17 12:13 ABG Glucose 204 mg/dL (75-99) H 12/11/17 12:13 ABG Lactic Acid 0.9 mmol/L (0.5-1.6) 12/21/17 04:30 Hemoglobin 6.4 gm/dL (11.4-16.0) L* 12/11/17 12:13 FiO2 40 % 12/22/17 10:36 Sodium 135 mmol/L (137-145) L 01/08/18 06:28 Potassium 3.5 mmol/L (3.5-5.1) 01/08/18 06:28 Chloride 98 mmol/L (98-107) 01/08/18 06:28 Carbon Dioxide 31 mmol/L (22-30) H 01/08/18 06:28 Anion Gap 6 mmol/L 01/08/18 06:28 BUN 5 mg/dL (7-17) L 01/08/18 06:28 Creatinine 0.55 mg/dL (0.52-1.04) 01/08/18 06:28 Est GFR (CKD-EPI)AfAm >90 (>60 ml/min/1.73 sqM) 01/08/18 06:28 Est GFR (CKD-EPI)NonAf >90 (>60 ml/min/1.73 sqM) 01/08/18 06:28 Glucose 99 mg/dL (74-99) 01/08/18 06:28 POC Glucose (mg/dL) 137 mg/dL (75-99) H 01/08/18 20:57 POC Glu Healthcare Specialist ID Melissa Heck 01/08/18 20:[address] Glu mg/dL 186 12/08/17 06:55 Hemoglobin A1c 8.1 % (4.0-6.0) H 12/08/17 06:55 Lactic Ac Sepsis Rflx Y 12/15/17 10:17 Plasma Lactic Acid [place] 0.7 mmol/L (0.7-2.0) 12/22/17 09:15 Calcium 7.8 mg/dL (8.4-10.2) L 01/08/18 06:28 Ionized Calcium Adiel 4.7 mg/dL (4.5-5.3) 01/08/18 12:45 Phosphorus 3.7 mg/dL (2.5-4.5) 01/08/18 06:28 Magnesium 2.0 mg/dL (1.6-2.3) 01/08/18 06:28 Total Bilirubin 0.3 mg/dL (0.2-1.3) 01/06/18 06:10 AST 21 U/L (14-36) 01/06/18 06:10 ALT 27 U/L (9-52) 01/06/18 06:10 Alkaline Phosphatase 381 U/L (38-126) H 01/06/18 06:10 Total Protein 4.6 g/dL (6.3-8.2) L 01/06/18 06:10 Albumin 1.9 g/dL (3.5-5.0) L 01/06/18 06:10 Prealbumin <5.0 mg/dL (18.0-42.0) L 12/31/17 06:31 Triglycerides 171 mg/dL (<150) H 12/23/17 04:32 Cholesterol 129 mg/dL (<200) 12/08/17 06:55 LDL Cholesterol, Calc 45 mg/dL (0-99) 12/08/17 06:55 HDL Cholesterol 66 mg/dL (40-60) H 12/08/17 06:55 Amylase <30 U/L (30-110) L 12/14/17 15:37 Lipase 25 U/L (23-300) 12/14/17 15:37 TSH 2.940 mIU/L (0.465-4.680) 12/08/17 06:55 Arterial Blood Potassium 4.4 mmol/L (3.4-4.5) 12/11/17 12:13 Arterial Blood Glucose 204 mg/dL (75-99) H 12/11/17 12:13 Urine Color Light Yellow 12/30/17 08:30 Urine Appearance Clear (Clear) 12/30/17 08:30 Urine pH 6.5 (5.0-8.0) 12/30/17 08:30 Ur Specific [place] 1.008 (1.001-1.035) 12/30/17 08:30 Urine Protein Trace (Negative) 12/30/17 08:30 Urine Glucose (UA) Negative (Negative) 12/30/17 08:30 Urine Ketones Negative (Negative) 12/30/17 08:30 Urine Blood Negative (Negative) 12/30/17 08:30 Urine Nitrite Negative (Negative) 12/30/17 08:30 Urine Bilirubin Negative (Negative) 12/30/17 08:30 Urine Urobilinogen <2.0 mg/dL (<2.0) 12/30/17 08:30 Ur Leukocyte Esterase Trace (Negative) 12/30/17 08:30 Urine RBC 1 /hpf (0-5) 12/30/17 08:30 Urine WBC 5 /hpf (0-5) 12/30/17 08:30 Ur Squamous Epith Cells <1 /hpf (0-4) 12/30/17 08:30 Urine Bacteria Occasional /hpf (None) 12/08/17 12:00 Hyaline Casts 1 /lpf (0-2) 12/30/17 08:30 Urine Mucus Rare /hpf (None) H 12/08/17 12:00 Stool Occult Blood Positive (Negative) 12/16/17 04:45 Stl Cryptosporidium Ag Negative (Negative) 12/15/17 14:15 Stool Giardia Source Stool 12/15/17 14:15 Stl Giardia Antigen Negative (Negative) 12/15/17 14:15 Vancomycin Trough 17.7 ug/mL 12/16/17 08:33 C. difficile (EIA) Intrp Negative (Negative) 12/16/17 10:35 Hepatitis A IgM Ab Non-Reactive (Non-Reactive) 12/08/17 06:55 Hep Bs Antigen Non-Reactive (Non-Reactive) 12/08/17 06:55 Hep B Core IgM Ab Non-Reactive (Non-Reactive) 12/08/17 06:55 Hep C IgG Ab Non-Reactive (Non-Reactive) 12/08/17 06:55 Blood Type B Positive 12/20/17 11:26 Blood Type Confirm B Positive 12/10/17 10:21 Blood Type Recheck No 12/20/17 11:26 Antibody Screen NEGATIVE 12/20/17 11:26 Crossmatch See Detail 12/20/17 11:26 Transfuse Platelets 12/11/17 12/10/17 05:38 Spec Expiration Date 12/23/2017 - 232512/20/17 11:26 Microbiology 01/01/18 21:38 Blood Blood Culture - Final No Growth after 144 hours 12/13/17 22:12 Blood Blood Culture - Final No Growth after 144 hours 12/15/17 14:15 Stool Stool Culture - Final 12/12/17 17:00 Urine,Catheterized Urine Culture - Final 12/08/17 12:00 Urine,Clean Catch Urine Culture - Final Escherichia coli 12/08/17 12:00 Nasal Swab Nasal Screen MRSA/MSSA - Final Assessment and Plan (1) E. coli sepsis Narrative/Plan: 72 year old woman with history of CAD failed stress test now s/p CABG and was progressing but developed fever to 102. Found to have UTI and is now improving. He doesn't history of chronic back pain been of some contention over the last day because of excess sedation from her pain medications. She currently is on minimal premedication with orders to ensure that she is at least sitting up and getting some ambulation. Her shortness of breath is definitely improved her chest is without significant pain. She does have a history of urinary tract infections in the past, since the Almaguer is out she has some minimal discomfort but does not feel miserable. She's had difficulty with incontinence since the Almaguer has been removed, bladder scan was performed with only 200 mL noted. She does have a urine culture with Escherichia coli that is resistant to quinolone therapy. With her fever the antibiotic therapy was enhance Zosyn and vancomycin. Sternal wound does not appear to be infected at the moment does not seem to have pneumonia. 12/15/2017 reveals the patient to have a change of her status in that she developed abdominal pain as well as worsening of her status. This concerns to ischemic colitis and she was moved to the intensive care unit. She's been seen by general surgery. It is being monitored. She had worsening lactic acidosis is now showing improvement after fluid challenge. She is not having chest pain and her shortness of breath continues to improve. Blood cultures are negative but urine culture did have E. coli years that she does have significant underlying infection in the urinary system. Treatment has been with Zosyn which should also cover ischemic colitis at that is occurring at this time. There are concerns to bowel compromise possibly for microemboli in the postoperative time frame. With this heparin has been started. Cultures are process and she'll be monitored. Her significant leukocytosis showing some slight improvement. 12/18/2017 the patient is having some improvement. She is not having as much pain and is able to tolerate some oral intake with clear liquids and has had some flatus. Abdominal pain is steadily improved and overall feels better. Leukocytosis is trending to improvement. X-ray shows evidence of some worsening of the hilar edema.there are no new positive cultures on the E. coli has been isolated. Antibiotic therapy with Zosyn to complete 7 days of therapy for her E. coli urinary tract infection. Surgery is following for the transient ischemic colitis she's been anticoagulated, and final plans are being developed as far as her long-term anticoagulation. The lactic acidosis completely resolved. December 21 2017 after the patient had a major change in her statusand was found evidence of ischemic colitis in the transverse and right colon and underwent colectomy and ileostomy placement. She's now having some improvement in her vasopressor therapy has now been put on hold with resolution of the hypotension. Patient seems to be comfortable. With her significant change of status antimicrobial therapy was migrated to meropenem and Eraxis pending culture results.she has a persistent leukocytosis related to the current sepsis which is showing some improvement. She did have profound anemia and was transfused and seems to be stable at this time. No Evidence of any new acute bleeding. 12/22/2017 the patient is now extubated and comfortable. Gastrointestinal function recovery is awaited and peripheral nutrition has been established. Leukocytosis is improving. She no longer is requiring vasopressor therapy. Seems responding well to meropenem and Eraxis and these will continue for now. Patient's family is present and course in therapy are discussed including the need for rehab after discharge. 12/24/2017 patient continued to show improvement. Doing well after her recent surgical intervention. Responding well to antimicrobial therapy with meropenem and Eraxis. We'll plan at least 10 days of antimicrobial therapy regarding her significant sepsis from the ischemic colitis and leak. The profound leukocytosis is improving diminishing to 19.2 from 29.4. Remains afebrile. 12/25/2017 patient remains without fever, her profound leukocytosis continues to decline in overall she's doing considerably better except for complaints of chronic back pain. She's had return of abdominal function and is tolerating her full liquid diet without difficulty. No nausea or emesis occurred. Is working with the primary service as far as her pain control given her history of chronic back pain and chronic narcotic use for this. She is on day 4 of 10 of antibiotic therapy with Merrem and Eraxis for the ischemic perforated colon. 12/27/2017 patient continues to improve. Day 6 of 10 of antibiotic therapy with Merrem and Eraxis for her ischemic perforated colitis. Continues to have improvement discomfort from her back from her arthritis remains her biggest complaint. 01/03/2018 overall the patient is having improvement .Her pain is under better control and she started to have some ability to participate with therapy. She' ll still has a wound VAC in place and is not having difficulties with persistent leukocytosis that has been of some concern. Some alteration of antimicrobial therapy occurred without a significant change of her status. She' s had significant challenges as of late and the GI function has returned after the ischemic perforated colitis. Her leukocytosis is trending to improvement and still has significant evidence of inflammatory parameters with the thrombocytosis and anemia. We'll begin transition of antimicrobial therapy to oral, metronidazole is ready being utilized. Meropenem discontinued and transitioned to Rocephin. The Rocephin metronidazole will give coverage for intra-abdominal infection. Antifungal therapy as transition to fluconazole 100 mg a day. Planning current course of therapy over the next week. Continue negative pressure therapy the abdominal incisions and if possible have her follow in the wound healing Center. 01/05/2018The patient has been evaluated by the ostomy nurse and has been noticed to be some separation from the stoma, has been seen by the surgeon with no plans for surgical intervention. The patient is no less uncomfortable than she was, eating modestly well and tolerating current course of antibiotic therapy which is metronidazole, with Rocephin and fluconazole. Planning at least one further week of therapy as she transitions to LTAC. 01/06/2018 patient without other new acute complaints. Is being treated with Rocephin intravenous as well as oral metronidazole and fluconazole. Planning a week of these when she transfers the LTAC hopefully on Monday. Continue the negative pressure therapy for the abdominal ulcerations with the 8 cm of tunneling. She's being monitored with the surgeon and wound ostomy nurse for some of the separation at her stoma. 01/07/2018 patient is without new complaints. Doing well with current antimicrobial therapy of Rocephin, metronidazole and fluconazole. Wound VAC continues as well as her ostomy care. Will need rehab at discharge plans in place with the social work team as to LTAC versus inpatient rehab. 01/08/2018 patient continues to improve. It appears she was going to [facility] for her rehabilitation at discharge. Completed week of Rocephin metronidazole and fluconazole. Negative pressure therapy with the wound VAC to the abdominal wound and ongoing ostomy care. I generally would follow-up with the wound healing center and with her surgical teams. Status: Acute Code(s): A41.51 - SEPSIS DUE TO ESCHERICHIA COLI [E. COLI] SNOMED Code(s): 912603172 (2) Urinary tract infection Current Visit: Yes Status: Acute Code(s): N39.0 - URINARY TRACT INFECTION, SITE NOT SPECIFIED SNOMED Code(s): 10266236 (3) Coronary artery disease involving left main coronary artery Current Visit: Yes Status: Chronic Code(s): I25.10 - ATHSCL HEART DISEASE OF [place] CORONARY ARTERY W/O ANG PCTRS SNOMED Code(s): 286469503 (4) Fever Current Visit: Yes Status: Acute Code(s): R50.9 - FEVER, UNSPECIFIED SNOMED Code(s): 924797470
[2018-01-09 02:02] LABS: Glucose,Whole Blood 94 mg/dL (75-99)
[2018-01-09] MEDS: INSULIN ASPART 100 UNIT/ML 1 ML 10 ML VIAL SQ SCH ×3 (03:03→12:42)
[2018-01-09 05:29] LABS: Glucose,Whole Blood 102 mg/dL (75-99)
[2018-01-09] MEDS: LEVOTHYROXINE 75 MCG TAB PO SCH (06:39)
[2018-01-09] MEDS: PANTOPRAZOLE 40 MG TABLET PO SCH (06:39)
[2018-01-09 07:44] LABS: Anisocytosis Slight; Basophils # (A) 0.1 k/uL (0-0.2); Basophils % (A) 1 %; Eosinophils # (A) 0.5 k/uL (0-0.7); Eosinophils % (A) 2 %; HCT 26.7 % (34.0-46.0); HGB 8.1 gm/dL (11.4-16.0); Hypochromasia Marked; Lymphocytes # (A) 1.7 k/uL (1.0-4.8); Lymphocytes % (A) 9 %; MCH 26.5 pg (25.0-35.0); MCHC 30.3 g/dL (31.0-37.0); MCV 87.7 fL (80.0-100.0); Mean Platelet Volume 6.6; Monocytes # (A) 1.2 k/uL (0-1.0); Monocytes % (A) 6 %; Neutrophils # (A) 15.7 k/uL (1.3-7.7); Neutrophils % (A) 81 %; Platelet Count 845 k/uL (150-450); RBC 3.05 m/uL (3.80-5.40); RDW 16.6 % (11.5-15.5); WBC 19.5 k/uL (3.8-10.6)
[2018-01-09 07:52] VITALS: TEMP 97.3
[2018-01-09 07:59] LABS: Anion Gap 7 mmol/L; Blood Urea Nitrogen 6 mg/dL (7-17); Calcium 8.2 mg/dL (8.4-10.2); Carbon Dioxide 29 mmol/L (22-30); Chloride 98 mmol/L (98-107); Glucose 92 mg/dL (74-99); Sodium 134 mmol/L (137-145)
[2018-01-09 08:01] VITALS: RESP 16
[2018-01-09] MEDS: oxyCODONE ER 20 MG TAB.ER.12H PO SCH ×2 (08:34→15:50)
[2018-01-09] MEDS: IPRATROPIUM-ALBUTEROL 3 ML NEB INHALATION SCH ×3 (08:41→16:32)
--- NOTE | 2018-01-09 08:53 | P.PN ---
Subjective Progress Note Date: 01/09/18 Principal diagnosis: Coronary artery disease with critical left main disease. Preserved left ventricular function. Previous medical history of hypertension, hyperlipidemia , diabetes mellitus with preoperative hemoglobin A1c 8.1%, hypothyroid, chest granulomatous disease, peripheral vascular disease status post right fem-pop bypass, previous tobacco dependence with FEV1 109% of predicted in November 2016, recent fall in June 2017 with torn right rotator cuff, questionable DVT with previous Coumadin use greater than 2 years ago, syncopal episodes, paroxysmal atrial fibrillation, chronic low back pain, obesity, and depression. Preoperative E. coli urinary tract infection. POD #29 urgent quadruple coronary artery bypass grafting using the left internal mammary sequentially to the diagonal artery and to the left anterior descending artery, reverse saphenous vein graft from the aorta to the first obtuse marginal, reverse saphenous vein graft from the aorta to the third obtuse marginal artery. Bilateral pulmonary vein isolation using the AtriCure radiofrequency clamp. Exclusion of the left atrial appendage using a 35 mm AtriClip. Intraoperative transesophageal echocardiogram and epi-aortic scanning. Postoperative elevation in transaminases, an unexpected outcome, resolved. Leukocytosis, present preoperatively. Postoperative diarrhea, an unexpected outcome. Postoperative normocytic, normochromic anemia, and expected outcome of surgery secondary to cardiopulmonary bypass and hemodilution. Postoperative urinary retention, an unexpected outcome, resolved. Postoperative pneumoperitoneum, an unexpected outcome, resolved. Necrosis of the transverse colon, right colon, an unexpected outcome. Sepsis, septic shock, an unexpected outcome, resolved. POD #19 right colectomy, transverse colectomy, takedown splenic flexure, ileostomy performed by Dr. Montoya. Postoperative prolonged mechanical ventilation, need to be reintubated for second surgery, an unexpected outcome. Postoperative left-sided pleural effusion, an unexpected outcome, resolving. Postoperative separation of ileostomy stoma, an unexpected outcome of surgery. Patient is currently sitting up in a chair in no acute distress. Denies pain or shortness of breath at this time. No new complaints. Patient continues to remain on Rocephin, oral Flagyl, and oral Diflucan per Dr. Mccartney recommendations. Remains afebrile. Wound VAC and ostomy changed yesterday, patient does have a dehiscence from the 1 to 3 o'clock position of the ostomy site, will continue to monitor per Dr. Montoya's recommendation. Patient continues to have stool output from her ostomy. Minimal output from wound VAC. Denies nausea, vomiting. Hemodynamically stable. Patient is ready to be discharged to subacute rehab today. Objective - Vital Signs Vital signs: Vital Signs Temp 97.3 F L 01/09/18 08:03 Pulse 80 01/08/18 19:41 Resp 16 01/09/18 07:58 BP 141/70 01/09/18 07:58 Pulse Ox 95 01/09/18 07:58 Intake & Output 01/08/18 01/09/18 01/09/18 18:59 06:59 18:59 Intake Total 1200 240 Balance 1200 240 Weight 82 kg 88 kg Intake: Oral 1200 240 Other: Voiding Method Diaper Diaper Incontinent Incontinent # Voids 2 3 1 # Bowel Movements 0 ABP, PAP, CO, CI - Last Documented Arterial Blood Pressure 159/93 Pulmonary Artery Pressure 4/4 Cardiac Output 4.5 Cardiac Index 2.5 - Constitutional General appearance: Present: cooperative, no acute distress, obese - Respiratory Details: Lungs sounds slightly diminished bilaterally. Respirations even, nonlabored. Currently on room air with oxygen saturation 95%. Able to achieve 1250 mL on her incentive spirometry. Strong, nonproductive cough. - Cardiovascular Details: S1, S2 present. Regular rate and rhythm, sinus rhythm on telemetry. Sternum stable. Palpable peripheral pulses bilaterally. Trace bilateral lower extremity pitting edema present. Right upper basilic vein midline catheter present, day #1. Heart hugger in place with patient demonstrating appropriate use. Antiembolism stockings, SCDs present. - Gastrointestinal Gastrointestinal Comment(s): Abdomen soft, nontender, nondistended. Active bowel sounds present. Right lower quadrant ileostomy present with dark brown liquid stool. Tolerating diet. - Genitourinary Genitourinary Comment(s): Patient remains incontinent of urine but is voiding with no documented residual per bladder scan. - Integumentary Integumentary Comment(s): Skin is warm and dry. Anterior chest incision well approximated with dry intact dressing present. Left lower semi-EVH site well approximated. Midline abdominal incision clean, Steri-Strips intact, wound VAC present with 50 mL drainage currently in the canister, was changed yesterday. - Neurologic Neurologic: Present: CNII-XII intact - Musculoskeletal Musculoskeletal: Present: generalized weakness, strength equal bilaterally - Psychiatric Psychiatric: Present: A&O x's 3, appropriate affect, intact judgment & insight - Allied health notes Allied health notes reviewed: nursing - Labs CBC & Chem 7: 01/09/18 07:26 01/09/18 07:26 Labs: Abnormal Lab Results - Last 24 Hours (Table) 01/08/18 01/08/18 01/08/18 Range/Units 06:28 11:30 16:29 WBC (3.8-10.6) k/uL RBC (3.80-5.40) m/uL Hgb (11.4-16.0) gm/dL Hct (34.0-46.0) % MCHC (31.0-37.0) g/dL RDW (11.5-15.5) % Plt Count (150-450) k/uL Neutrophils # (1.3-7.7) k/uL Monocytes # (0-1.0) k/uL Sodium 135 L (137-145) mmol/L Carbon Dioxide 31 H (22-30) mmol/L BUN 5 L (7-17) mg/dL POC Glucose (mg/dL) 154 H 168 H (75-99) mg/dL Calcium 7.8 L (8.4-10.2) mg/dL 01/08/18 01/09/18 01/09/18 Range/Units 20:57 05:28 07:26 WBC 19.5 H (3.8-10.6) k/uL RBC 3.05 L (3.80-5.40) m/uL Hgb 8.1 L (11.4-16.0) gm/dL Hct 26.7 L (34.0-46.0) % MCHC 30.3 L (31.0-37.0) g/dL RDW 16.6 H (11.5-15.5) % Plt Count 845 H (150-450) k/uL Neutrophils # 15.7 H (1.3-7.7) k/uL Monocytes # 1.2 H (0-1.0) k/uL Sodium (137-145) mmol/L Carbon Dioxide (22-30) mmol/L BUN (7-17) mg/dL POC Glucose (mg/dL) 137 H 102 H (75-99) mg/dL Calcium (8.4-10.2) mg/dL 01/09/18 Range/Units 07:26 WBC (3.8-10.6) k/uL RBC (3.80-5.40) m/uL Hgb (11.4-16.0) gm/dL Hct (34.0-46.0) % MCHC (31.0-37.0) g/dL RDW (11.5-15.5) % Plt Count (150-450) k/uL Neutrophils # (1.3-7.7) k/uL Monocytes # (0-1.0) k/uL Sodium 134 L (137-145) mmol/L Carbon Dioxide (22-30) mmol/L BUN 6 L (7-17) mg/dL POC Glucose (mg/dL) (75-99) mg/dL Calcium 8.2 L (8.4-10.2) mg/dL Assessment and Plan (1) Coronary artery disease involving left main coronary artery Current Visit: Yes Status: Chronic Code(s): I25.10 - ATHSCL HEART DISEASE OF [place] CORONARY ARTERY W/O ANG PCTRS SNOMED Code(s): 000901835 (2) Hypertension Current Visit: Yes Status: Chronic Code(s): I10 - ESSENTIAL (PRIMARY) HYPERTENSION SNOMED Code(s): 66765375 (3) Hyperlipidemia Current Visit: Yes Status: Chronic Code(s): E78.5 - HYPERLIPIDEMIA, UNSPECIFIED SNOMED Code(s): 60424606 (4) Diabetes Current Visit: Yes Status: Chronic Code(s): E11.9 - TYPE 2 DIABETES MELLITUS WITHOUT COMPLICATIONS SNOMED Code(s): 66253743 (5) Peripheral vascular disease Current Visit: Yes Status: Chronic Code(s): I73.9 - PERIPHERAL VASCULAR DISEASE, UNSPECIFIED SNOMED Code(s): 374801632 (6) Family history of heart disease Current Visit: Yes Status: Chronic Code(s): Z82.49 - FAMILY HX OF ISCHEM HEART DIS AND OTH DIS OF THE CIRC SYS SNOMED Code(s): 516372728 (7) Tobacco dependence in remission Current Visit: No Status: Resolved Code(s): F17.201 - NICOTINE DEPENDENCE, UNSPECIFIED, IN REMISSION SNOMED Code(s): 844159630 (8) Hypothyroid Current Visit: Yes Status: Chronic Code(s): E03.9 - HYPOTHYROIDISM, UNSPECIFIED SNOMED Code(s): 71074677 (9) Syncopal episodes Current Visit: No Status: Chronic Code(s): R55 - SYNCOPE AND COLLAPSE SNOMED Code(s): 346297191 (10) History of DVT (deep vein thrombosis) Current Visit: No Status: Resolved Code(s): Z86.718 - PERSONAL HISTORY OF OTHER VENOUS THROMBOSIS AND EMBOLISM SNOMED Code(s): 553846227 (11) History of atrial fibrillation Current Visit: No Status: Resolved Code(s): Z86.79 - PERSONAL HISTORY OF OTHER DISEASES OF THE CIRCULATORY SYSTEM SNOMED Code(s): 218671661 (12) Chronic low back pain Current Visit: Yes Status: Chronic Code(s): M54.5 - LOW BACK PAIN; G89.29 - OTHER CHRONIC PAIN SNOMED Code(s): 807946612 (13) Depression Current Visit: Yes Status: Chronic Code(s): F32.9 - MAJOR DEPRESSIVE DISORDER, SINGLE EPISODE, UNSPECIFIED SNOMED Code(s): 39623290 Plan: 1. Continue low-dose aspirin, statin, beta sheree. Will add Losartan. Apresoline, Plavix discontinued. 2. Bronchodilators per pulmonology. 3. Continue amiodarone for A. fib prophylaxis, decreased to 100 mg daily. Eliquis added for anticoagulation. 4. Continue Rocephin, Flagyl, Diflucan per Dr. Mccartney. 5. Continue oral Lasix twice daily. 6. GI prophylaxis with Protonix. DVT prophylaxis with SCDs. 7. Pain control with current medication regimen. 8. Insulin management per primary care. 9. Wound VAC per general surgery to abdominal incisions. To be changed every 48-72 hours. Last changed yesterday. 10. Increase activity, ambulate as tolerated. PT/OT/cardiac rehab following. 11. Encourage oral nutrition, especially protein. 12. Discharge planning in progress. Anticipate discharge to [facility] after noon. Time with Patient: Greater than 30
[2018-01-09] MEDS ORDERED: APIXABAN 5 MG TAB PO SCH (09:00)
[2018-01-09] MEDS ORDERED: AMIODARONE 100 MG TAB PO SCH (09:00)
[2018-01-09] MEDS: FLUCONAZOLE 100 MG TAB PO SCH (11:11)
[2018-01-09] MEDS: metroNIDAZOLE 500 MG TAB PO SCH ×2 (11:12→15:53)
[2018-01-09] MEDS: FUROSEMIDE 40 MG TAB PO SCH ×2 (11:12→15:52)
[2018-01-09] MEDS: ASPIRIN 81 MG PO SCH (11:12)
[2018-01-09] MEDS: METOPROLOL TARTRATE 25 MG TAB PO SCH (11:12)
[2018-01-09] MEDS: DULoxetine HCL 60 MG CAPSULE.DR PO SCH (11:12)
[2018-01-09] MEDS: ATORVASTATIN 40 MG TAB PO SCH (11:12)
[2018-01-09 11:41] LABS: Glucose,Whole Blood 150 mg/dL (75-99)
[2018-01-09] MEDS: cefTRIAXone IN SWFI 1,000 MG/10 ML SYRINGE IVP SCH (11:59)
[2018-01-09] MEDS ORDERED: LOSARTAN 25 MG TAB PO SCH (12:00)
--- NOTE | 2018-01-09 12:11 | P.PN ---
Subjective Progress Note Date: 01/09/18 72-year-old female seen this morning at bedside physical therapy working with patient ambulating with a rolled walker. Needs the assist of 2. Currently denying abdominal pain. Nursing reports a moderate amount of stool from the ostomy ostomy appliance changed by the ostomy nurse discharge plan in progress being evaluated for possible ECF placement December 20 right colectomy transverse colectomy, takedown splenic flexure, ileostomy due to perforated perforated viscus with necrosis of the transverse colon right colon Postop day 29 urgent quadruple coronary artery bypass grafting Objective - Vital Signs Vital signs: Vital Signs Temp 97.3 F L 01/09/18 08:03 Pulse 75 01/09/18 11:28 Resp 16 01/09/18 07:58 BP 119/71 01/09/18 11:28 Pulse Ox 95 01/09/18 07:58 Intake & Output 01/08/18 01/09/18 01/09/18 18:59 06:59 18:59 Intake Total 1200 440 Output Total 250 Balance 1200 190 Weight 82 kg 88 kg Intake: Oral 1200 440 Output: Stool 250 Other: Voiding Method Diaper Diaper Incontinent Incontinent # Voids 2 3 1 # Bowel Movements 0 ABP, PAP, CO, CI - Last Documented Arterial Blood Pressure 159/93 Pulmonary Artery Pressure 4/4 Cardiac Output 4.5 Cardiac Index 2.5 - Exam Exam 72-year-old female physical therapy at the bedside attempting to ambulate patient with the use of a walker Lungs adequate air movement 94% sat room air no shortness of breath Heart S1-S2 audible regular Abdomen ostomy appliance changed today by ostomy nurse incision dry ostomy moderate amount of stool brown soft incontinent urine soft nondistended nontender tolerating diet Extremities decrease edema to the bilateral lower extremities below the knee KURT benton on - Labs CBC & Chem 7: 01/09/18 07:26 01/09/18 07:26 Labs: Abnormal Lab Results - Last 24 Hours (Table) 01/08/18 01/08/18 01/08/18 Range/Units 06:28 16:29 20:57 WBC (3.8-10.6) k/uL RBC (3.80-5.40) m/uL Hgb (11.4-16.0) gm/dL Hct (34.0-46.0) % MCHC (31.0-37.0) g/dL RDW (11.5-15.5) % Plt Count (150-450) k/uL Neutrophils # (1.3-7.7) k/uL Monocytes # (0-1.0) k/uL Sodium 135 L (137-145) mmol/L Carbon Dioxide 31 H (22-30) mmol/L BUN 5 L (7-17) mg/dL POC Glucose (mg/dL) 168 H 137 H (75-99) mg/dL Calcium 7.8 L (8.4-10.2) mg/dL 01/09/18 01/09/18 01/09/18 Range/Units 05:28 07:26 07:26 WBC 19.5 H (3.8-10.6) k/uL RBC 3.05 L (3.80-5.40) m/uL Hgb 8.1 L (11.4-16.0) gm/dL Hct 26.7 L (34.0-46.0) % MCHC 30.3 L (31.0-37.0) g/dL RDW 16.6 H (11.5-15.5) % Plt Count 845 H (150-450) k/uL Neutrophils # 15.7 H (1.3-7.7) k/uL Monocytes # 1.2 H (0-1.0) k/uL Sodium 134 L (137-145) mmol/L Carbon Dioxide (22-30) mmol/L BUN 6 L (7-17) mg/dL POC Glucose (mg/dL) 102 H (75-99) mg/dL Calcium 8.2 L (8.4-10.2) mg/dL 01/09/18 Range/Units 11:32 WBC (3.8-10.6) k/uL RBC (3.80-5.40) m/uL Hgb (11.4-16.0) gm/dL Hct (34.0-46.0) % MCHC (31.0-37.0) g/dL RDW (11.5-15.5) % Plt Count (150-450) k/uL Neutrophils # (1.3-7.7) k/uL Monocytes # (0-1.0) k/uL Sodium (137-145) mmol/L Carbon Dioxide (22-30) mmol/L BUN (7-17) mg/dL POC Glucose (mg/dL) 150 H (75-99) mg/dL Calcium (8.4-10.2) mg/dL Assessment and Plan Assessment: Impression Ischemic colitis resolving stool for C. diff negative Postop diarrhea 9 expected outcome Postop urgent quadruple coronary artery bypass grafting using left internal mammary Echocardiogram preserved LV function Sudden onset of abdominal pain postoperative suspect due to free air. As evident on a CAT scan of the abdomen and pelvis Right colectomy, transverse colectomy, takedown splenic flexure, ileostomy for Perforated viscus done on December 20 Necrosis of transverse colon, right colon and on expected outcome Deconditioned suspect due to prolonged length of stay Leukocytosis present preoperatively Postoperative diarrhea unexpected outcome Postoperative pneumoperitoneum mucutaneous juncture separation from 1-3 with questionable fistulous active functioning bowel Plan Discharge plan per the attending Ileostomy care Ileostomy teaching as appropriate Wound VAC as ordered changed January 08 Continue postop surgical care care PT OT jorgeal Will follow with you with further recommendations as clinical course indicates From surgical perspective okay to proceed with a discharge to the ECF facility when bed becomes available defer to the timing to the attending The above impression and plan of care have been discussed and directed by signing physician. Missy Baca nurse practitioner acting as scribe for signing physician.
[2018-01-09 12:29] VITALS: BP 123/86; PULSE 79
--- NOTE | 2018-01-09 13:00 | P.PN ---
Subjective Progress Note Date: 01/09/18 Principal diagnosis: Status post coronary artery bypass grafting, status post right colectomy for acute perforated viscus and necrosis of the transverse and right colon. The patient is seen again today 01/09/2018 in follow-up on the selective care unit. She is awake and alert in no acute distress. She is currently sitting up in a chair at the bedside. Denies any worsening shortness of breath, cough or congestion. Tinea good O2 saturations in the 90s on room air. White count 19.5. Hemoglobin 8.1. Creatinine 0.59. Awaiting ECF placement. Objective - Vital Signs Vital signs: Vital Signs Temp 97.3 F L 01/09/18 08:03 Pulse 79 01/09/18 12:27 Resp 16 01/09/18 12:27 BP 123/86 01/09/18 12:27 Pulse Ox 94 L 01/09/18 12:27 Intake & Output 01/08/18 01/09/18 01/09/18 18:59 06:59 18:59 Intake Total 1200 680 Output Total 250 Balance 1200 430 Weight 82 kg 88 kg Intake: Oral 1200 680 Output: Stool 250 Other: Voiding Method Diaper Diaper Incontinent Incontinent # Voids 2 3 1 # Bowel Movements 0 ABP, PAP, CO, CI - Last Documented Arterial Blood Pressure 159/93 Pulmonary Artery Pressure 4/4 Cardiac Output 4.5 Cardiac Index 2.5 - Exam - Constitutional General appearance: Present: Awake, alert and oriented in no acute distress - Respiratory Details: Lungs sounds scattered rhonchi bilaterally, crackles in the posterior bases. Respirations even, nonlabored. Currently on room air with oxygen saturation 94% . Able to achieve 2936-8029 mL on her incentive spirometry. Effective cough. - Cardiovascular Details: S1, S2 present. Regular rate and rhythm, sinus rhythm on telemetry. Palpable peripheral pulses bilaterally. No edema present. No calf pain or tenderness noted. - Gastrointestinal Gastrointestinal Comment(s): Abdomen soft, nontender, nondistended. Active bowel sounds 4 quadrants. Tolerating diet. Ostomy functioning. Dehiscence being followed by surgical services. Wound VAC in place. - Genitourinary Genitourinary Comment(s): Continues to void clear, yellow urine. - Integumentary Integumentary Comment(s): Skin is warm and dry with evidence of good perfusion. Left groin soft, nontender, no drainage. - Neurologic Neurologic: Present: CNII-XII intact - Musculoskeletal Musculoskeletal Comment(s): Walks with cane. Musculoskeletal: Present: Weak - Psychiatric Psychiatric: Present: A&O x's 3 - Labs CBC & Chem 7: 01/09/18 07:26 01/09/18 07:26 Labs: Abnormal Lab Results - Last 24 Hours (Table) 01/08/18 01/08/18 01/09/18 Range/Units 16:29 20:57 05:28 WBC (3.8-10.6) k/uL RBC (3.80-5.40) m/uL Hgb (11.4-16.0) gm/dL Hct (34.0-46.0) % MCHC (31.0-37.0) g/dL RDW (11.5-15.5) % Plt Count (150-450) k/uL Neutrophils # (1.3-7.7) k/uL Monocytes # (0-1.0) k/uL Sodium (137-145) mmol/L BUN (7-17) mg/dL POC Glucose (mg/dL) 168 H 137 H 102 H (75-99) mg/dL Calcium (8.4-10.2) mg/dL 01/09/18 01/09/18 01/09/18 Range/Units 07:26 07:26 11:32 WBC 19.5 H (3.8-10.6) k/uL RBC 3.05 L (3.80-5.40) m/uL Hgb 8.1 L (11.4-16.0) gm/dL Hct 26.7 L (34.0-46.0) % MCHC 30.3 L (31.0-37.0) g/dL RDW 16.6 H (11.5-15.5) % Plt Count 845 H (150-450) k/uL Neutrophils # 15.7 H (1.3-7.7) k/uL Monocytes # 1.2 H (0-1.0) k/uL Sodium 134 L (137-145) mmol/L BUN 6 L (7-17) mg/dL POC Glucose (mg/dL) 150 H (75-99) mg/dL Calcium 8.2 L (8.4-10.2) mg/dL Assessment and Plan Assessment: Impression: #1. Multivessel coronary artery disease, involving left main coronary artery. Status post coronary artery bypass grafting. #2. Acute sepsis secondary to an acute perforated viscus with necrosis of the transverse and right colon and the patient is status post right colectomy, transverse colectomy and takedown of splenic flexure with ileostomy. Small dehiscence at the 1 to 3 o'clock position, surgical services following. Wound VAC in place #3. Acute hypoxic respiratory failure secondary to above, recovered. #4. Diabetes mellitus 2 #5. Obesity #6. Peripheral vascular disease #7. History of nicotine dependence, currently in remission, quit 10 years ago, carries [id number] smoking history #8. Hypothyroidism #9. Paroxysmal atrial fibrillation, currently in sinus rhythm #10. Chronic low back pain #11. Depression #12. Urinary tract infection secondary to E. coli, follow-up culture negative #13. Hypertension. Plan: The patient was seen and evaluated by Dr. Salas. Continue her current treatment plan. We will increase her activity as tolerated. Discharge planning is in place. Probable subacute care due to insurance. I, the cosigning physician, performed a history & physical examination of the patient. Lungs sounds with crackles in the left base. Maintaining good O2 saturations in the 90s on room air. I discussed the assessment and plan of care with my nurse practitioner, Anne Marie Javed. I attest to the above note as dictated by her.
[2018-01-09] MEDS: NYSTATIN 100,000 UNIT/ML SUSP 500,000 UNIT/5 ML CUP PO SCH ×2 (14:08→14:14)
[2018-01-09] MEDS: FERROUS SULFATE 325 MG TAB PO SCH (14:11)
[2018-01-09] MEDS: ASCORBIC ACID 500 MG TAB PO SCH (14:11)
[2018-01-09] MEDS: CYANOCOBALAMIN 500 MCG TAB PO SCH (14:11)
--- NOTE | 2018-01-09 14:49 | P.DS ---
Providers Date of admission: 12/08/17 08:14 Expected date of discharge: 01/09/18 Attending physician: Yanelis Olvera Consults: 12/08/17 09:53 Consult Physician Urgent Consulting Provider: Yanelis Olvera Consult Reason/Comments: cad Do you want consulting provider notified?: Already Contacted 12/08/17 11:58 Consult Physician Routine Consulting Provider: Paloma Salas Consult Reason/Comments: preop cabg Do you want consulting provider notified?: Yes Consult Physician Routine Consulting Provider: Parveen Dietz Consult Reason/Comments: preop cabg, [place] patient Do you want consulting provider notified?: Yes Consult to Anesthesia Routine Consulting Provider: Anesthesia,Services Consult Reason/Comments: Cardiac Surgery Pre-Op 12/13/17 23:29 Consult Physician Urgent Consulting Provider: Joshua Mccartney Consult Reason/Comments: infection Do you want consulting provider notified?: Yes 12/14/17 10:38 Consult Physician Routine Consulting Provider: aJce Medrano Consult Reason/Comments: inpatient rehab Do you want consulting provider notified?: Yes 12/15/17 14:55 Consult Physician Urgent Consulting Provider: Adalid Crum Consult Reason/Comments: Lactic acid 3.5, possible ischemic bowel. Do you want consulting provider notified?: Yes 12/16/17 09:54 Consult Physician Routine Consulting Provider: Timothy Bonner Consult Reason/Comments: Urine retention Do you want consulting provider notified?: Yes 12/25/17 08:21 Consult Physician Routine Consulting Provider: Christopher Montoya Consult Reason/Comments: already covering, changed from [place] to [place] Do you want consulting provider notified?: Already Contacted Primary care physician: Diaz Alcala - Discharge Diagnosis(es) (1) Coronary artery disease involving left main coronary artery Current Visit: Yes Status: Chronic (2) Hypertension Current Visit: Yes Status: Chronic (3) Hyperlipidemia Current Visit: Yes Status: Chronic (4) Diabetes Current Visit: Yes Status: Chronic (5) Peripheral vascular disease Current Visit: Yes Status: Chronic (6) Family history of heart disease Current Visit: Yes Status: Chronic (7) Tobacco dependence in remission Current Visit: No Status: Resolved (8) Hypothyroid Current Visit: Yes Status: Chronic (9) Syncopal episodes Current Visit: No Status: Chronic (10) History of DVT (deep vein thrombosis) Current Visit: No Status: Resolved (11) History of atrial fibrillation Current Visit: No Status: Resolved (12) Chronic low back pain Current Visit: Yes Status: Chronic (13) Depression Current Visit: Yes Status: Chronic Hospital Course: FINAL DIAGNOSIS: 1. Coronary artery disease with critical left main disease 2. Preserved left ventricular function 3. History of hypertension 4. History of hyperlipidemia 5. Diabetes mellitus with preoperative hemoglobin A1c 8.1% 6. Hypothyroid 7. Chest granulomatous disease 8. Peripheral vascular disease status post right fem-pop bypass 9. Previous tobacco dependence with FEV1 109% predicted in November 2016 10. Recent fall in 2018 with torn rotator cuff 11. Questionable DVT with previous Coumadin use greater than 2 years ago 12. Syncopal episodes 13. Paroxysmal atrial fibrillation 14. Chronic low back pain 15. Obesity 16. Depression 17. Preoperative E. coli urinary tract infection 18. Preoperative leukocytosis 19. Postoperative elevation in transaminases, an unexpected outcome 20. Postoperative acute blood loss anemia, expected outcome secondary to cardiopulmonary bypass and hemodilution 21. Postoperative urinary retention, an unexpected outcome 22. Postoperative pneumoperitoneum, an unexpected outcome 23. Necrosis of the transverse colon, right colon, an unexpected outcome 24. Sepsis, septic shock, and unexpected outcome 25. Postoperative prolonged mechanical ventilation, need for reintubation for second surgery, and unexpected outcome 26. Postoperative left-sided pleural effusion, and unexpected outcome 27. Postoperative separation of ileostomy stoma, and unexpected outcome PRINCIPAL PROCEDURE: 1. Left heart catheterization without left ventriculography 2. Urgent quadruple coronary artery bypass grafting using the left internal mammary sequentially to the diagonal artery and to the left anterior descending artery, reverse saphenous vein graft from the aorta to the first obtuse marginal artery, reverse saphenous vein graft from the aorta to the third obtuse marginal artery 3. Bilateral pulmonary vein isolation using the AtriCure radiofrequency clamp 4. Exclusion of the left atrial appendage using a 35 mm Atriclip 5. Intraoperative transesophageal echocardiogram and epi-aortic scanning 6. Right colectomy, transverse colectomy, takedown of splenic flexure, ileostomy performed by Dr. Montoya HISTORY OF PRESENT ILLNESS: This is a 72-year-old female patient who follows with Dr Diaz irwin this on an outpatient basis. Recently she had experienced episodes of shortness of breath which had been getting progressively worse over a two-year period, which she attributed to her history of tobacco dependence. She denied any complaints of chest pain or other anginal type symptoms. She did report that the shortness of breath is limiting her activities of daily living. Subsequently she was seen and evaluated by cardiology is a preoperative workup for a right rotator cuff repair, she underwent a stress test which was positive for inferior septal ischemia. An elective heart catheterization was completed which demonstrated left main stenosis of 60-70% which extended into her proximal circumflex coronary artery, mid left anterior descending stenosis of 70%, a 70% stenosis to her left circumflex coronary artery, and no significant right coronary artery disease. The patient was referred to Dr. Olvera from cardiothoracic surgery. She was recommended to undergo urgent coronary artery bypass grafting. All risks and benefits were explained in detail to the patient and her family, all questions were answered, and consent was obtained to proceed with surgery. Due to the nature of her disease, the patient was kept inpatient. HOSPITAL COURSE: The patient was taken to the preoperative area on 12/11/2017, prepared in the usual fashion, and subsequently taken to the operating room where Dr. Olvera performed an urgent quadruple coronary artery bypass grafting using the left internal mammary sequentially to the diagonal artery and to the left anterior descending artery, reverse saphenous vein graft from the aorta to the first obtuse marginal artery, reverse saphenous vein graft from the aorta to the third obtuse marginal artery, bilateral pulmonary vein isolation using the AtriCure radiofrequency clamp, exclusion of the left atrial appendage using a 35 mm Atriclip, intraoperative transesophageal echocardiogram and epi-aortic scanning. Upon completion of surgery the patient was transferred to the cardiovascular intensive care unit where she was recovered, monitored hemodynamically, and where she progressed to cardiac rehabilitation phase 1. She had a very stormy recovery. She was initially extubated within 4 hours of her postoperative period, all lines, tubes, and drips were discontinued when appropriate, and she was transferred to [address] [place] [address] for further monitoring and rehabilitation. Subsequently the patient developed loose stools , and acute abdominal pain and was evaluated by general surgery. On 12/20/2017 she was taken back to the operating room where she underwent a right colectomy, transverse colectomy, takedown of the splenic flexure, and ileostomy performed by Dr. Montoya. She was transferred back to the intensive care unit where she required prolonged mechanical ventilatory support. Upon extubation the second time, she was recovered for some time in the intensive care unit before being transferred back to [address] [place] [address]. She had ongoing wound care to her midline abdominal incision with a wound VAC dressing and ileostomy care being completed by the wound ostomy nurse. Her oxygen was titrated down, she continued to work with physical and occupational therapy, she was tolerating oral diet, her pain was controlled, and she was ready to be discharged to [facility] rehab on postoperative day #29. She received written and verbal instruction regarding her medications, activity restrictions , signs and symptoms requiring physician notification, and follow-up appointments. She had a midline IV catheter for IV antibiotics which are to be monitored and managed by infectious disease on an outpatient basis. COMPLICATIONS: The patient experienced postoperative acute blood loss anemia, urinary retention, pneumoperitoneum, necrosis of the transverse and right colon , septic shock, prolonged mechanical ventilation, left-sided pleural effusion, and separation of the ileostomy stoma, all of which were treated accordingly.. Patient Condition at Discharge: Fair Plan - Discharge Summary Discharge Rx Participant: No New Discharge Prescriptions: New Acetaminophen Tab [Tylenol] 650 mg PO Q4HR PRN tab PRN Reason: Fever and/ or MODERATE Pain Acetaminophen Tab [Tylenol] 325 mg PO Q4HR PRN tab PRN Reason: Fever and/ or MILD Pain Amiodarone [Cordarone] 100 mg PO DAILY tab Apixaban [Eliquis] 5 mg PO BID tab Ascorbic Acid [Vitamin C] 500 mg PO DAILY@1200 tab Aspirin 81 mg PO DAILY chew Atorvastatin [Lipitor] 40 mg PO DAILY tab Calcium Carbonate [Tums] 500 mg PO QID PRN chew PRN Reason: Heartburn cefTRIAXone [Rocephin] 1,000 mg IVP Q24HR 2 Days syringe Ferrous Sulfate [Iron (65 MG Elemental)] 325 mg PO W/LUNCH tab Fluconazole [Diflucan] 100 mg PO DAILY 2 Days tab Furosemide [Lasix] 40 mg PO BID@0900,1600 tab Insulin Aspart [NovoLOG (formulary)] 0 unit SQ [id number] vial Ipratropium-Albuterol Nebulize [Duoneb 0.5 mg-3 mg/3 ml Soln] 3 ml INHALATION RT-QID ampul.neb Ipratropium-Albuterol Nebulize [Duoneb 0.5 mg-3 mg/3 ml Soln] 3 ml INHALATION RT-Q2H PRN ampul.neb PRN Reason: Shortness Of Breath Or Wheezing Losartan [Cozaar] 25 mg PO DAILY@1200 tab Metoprolol Tartrate [Lopressor] 25 mg PO Q12HR tab metroNIDAZOLE [Flagyl] 500 mg PO TID 2 Days tab Nystatin 100,000 Unit/ml Susp [Mycostatin Oral Susp] 500,000 unit PO QID cup oxyCODONE ER [OxyCONTIN] 20 mg PO Q8HR #30 tab.er.12h Pantoprazole [Protonix] 40 mg PO AC-BRKFST tablet. Potassium Chloride ER [K-Dur 20] 20 meq PO DAILY #7 tab Continue Levothyroxine Sodium [Synthroid] 75 mcg PO DAILY Ergocalciferol (Vitamin D2) [Vitamin D2] 50,000 unit PO TUFR DULoxetine HCL [Cymbalta] 60 mg PO DAILY Cyanocobalamin [Vitamin B-12] 500 mcg PO DAILY Discontinued Aspirin 81 mg PO HS Cilostazol [Pletal] 100 mg PO BID Rosuvastatin [Crestor] 20 mg PO HS Olmesartan/Hydrochlorothiazide [Benicar Hct 40-25 mg Tablet] 1 tab PO DAILY Ibuprofen [Motrin] 800 mg PO BID metFORMIN HCL [Glucophage] 500 mg PO BID oxyCODONE HCL [OxyCONTIN] 20 mg PO TID Discharge Medication List DULoxetine HCL [Cymbalta] 60 mg PO DAILY 12/14/16 [History] Ergocalciferol (Vitamin D2) [Vitamin D2] 50,000 unit PO TUFR 12/14/16 [History] Levothyroxine Sodium [Synthroid] 75 mcg PO DAILY 12/14/16 [History] Cyanocobalamin [Vitamin B-12] 500 mcg PO DAILY 12/04/17 [History] Acetaminophen Tab [Tylenol] 325 mg PO Q4HR PRN tab 01/09/18 [Rx] Acetaminophen Tab [Tylenol] 650 mg PO Q4HR PRN tab 01/09/18 [Rx] Amiodarone [Cordarone] 100 mg PO DAILY tab 01/09/18 [Rx] Apixaban [Eliquis] 5 mg PO BID tab 01/09/18 [Rx] Ascorbic Acid [Vitamin C] 500 mg PO DAILY@1200 tab 01/09/18 [Rx] Aspirin 81 mg PO DAILY chew 01/09/18 [Rx] Atorvastatin [Lipitor] 40 mg PO DAILY tab 01/09/18 [Rx] Calcium Carbonate [Tums] 500 mg PO QID PRN chew 01/09/18 [Rx] Ferrous Sulfate [Iron (65 MG Elemental)] 325 mg PO W/LUNCH tab 01/09/18 [Rx] Fluconazole [Diflucan] 100 mg PO DAILY 2 Days tab 01/09/18 [Rx] Furosemide [Lasix] 40 mg PO BID@0900,1600 tab 01/09/18 [Rx] Insulin Aspart [NovoLOG (formulary)] 0 unit SQ [id number] vial 01/09/18 [Rx] Ipratropium-Albuterol Nebulize [Duoneb 0.5 mg-3 mg/3 ml Soln] 3 ml INHALATION RT -Q2H PRN ampul.neb 01/09/18 [Rx] Ipratropium-Albuterol Nebulize [Duoneb 0.5 mg-3 mg/3 ml Soln] 3 ml INHALATION RT -QID ampul.neb 01/09/18 [Rx] Losartan [Cozaar] 25 mg PO DAILY@1200 tab 01/09/18 [Rx] Metoprolol Tartrate [Lopressor] 25 mg PO Q12HR tab 01/09/18 [Rx] Nystatin 100,000 Unit/ml Susp [Mycostatin Oral Susp] 500,000 unit PO QID cup [Rx] Pantoprazole [Protonix] 40 mg PO AC-BRKFST tablet. 01/09/18 [Rx] Potassium Chloride ER [K-Dur 20] 20 meq PO DAILY #7 tab 01/09/18 [Rx] cefTRIAXone [Rocephin] 1,000 mg IVP Q24HR 2 Days syringe 01/09/18 [Rx] metroNIDAZOLE [Flagyl] 500 mg PO TID 2 Days tab 01/09/18 [Rx] oxyCODONE ER [OxyCONTIN] 20 mg PO Q8HR #30 tab.er.12h 01/09/18 [Rx] Follow up Appointment(s)/Referral(s): Diaz Alcala DO [Primary Care Provider] - 2 Weeks (Please call for appointment when discharged from rehab) Yanelis Olvera MD [STAFF PHYSICIAN] - 01/26/18 10:00 am Mariah Blackmon MD [STAFF PHYSICIAN] - 01/19/18 3:15 pm Paloma Salas MD [STAFF PHYSICIAN] - 01/22/18 1:45 pm Chrsitopher Montoya MD [STAFF PHYSICIAN] - 01/23/18 1:30 pm Patient Instructions/Handouts: Ileostomy Care (GEN), Heart Healthy Diet (DC), Sternal Precautions (GEN), Coronary Artery Bypass Graft (DC) Activity/Diet/Wound Care/Special Instructions: Ileostomy pouching change: 01.09.2018 Ileostomy Care Instructions from Kana Wisdom for Transition of Care Current ileostomy supplies utilized: [employer] one piece cut to fit #[id number] (four from the hospital) Stephan seal to skin crease area (half marina) (4 from the hospital) Ostomy powder to mucutaneous juncture separation area No sting prep to peristomal skin area with change (12 from the hospital) Ostomy Powder (to peristomal skin if irritated as needed) Ileostomy appliance is to be changed every 3-5 days Emptied when 1/2 to 1/3 full Abdominal Incision Care: Wound Vac current surgeon orders change every 48 - 72 hours to two open abdominal incision areas Monday- Monday- Monday Alona incision area with transparent film Currently White versafoam to tunneled areas of the both areas at 12 o'clock position followed by two pieces of Black Granufoam to each open incision area ( one on top of each other) NPWT settings: Continuous setting, 125mm/Hg, Medium intensity Wound VAC to be kept in place until seen in follow-up visit with Dr. Montoya Any questions related to NPWT notify the surgeon Dr Montoya DISCHARGE INSTRUCTIONS: 1. No driving for 4 weeks, or until physician gives their ok. 2. The patient should sleep in their own bed, no medical bed needed. 3. Stairs are not an issue. If the bedroom is upstairs, it is advised that the patient go up at night and down in the morning for the first week. Go slowly, using handrail and take 1 step at a time. 4. KURT hose are to be worn for 30 days or until physician discontinues. 5. Heart hugger is to be worn 100% of the time until physician discontinues.( except when showering) 6. No lifting, pushing, or pulling more than 10 pounds for 12 weeks. The physician will advise of any restriction changes. 7. The patient is expected to continue the prescribed walking program. 8. Continue pain control per as needed orders. 9. Continue with incentive spirometry and splinting/heart hugger until otherwise directed by the physician. 10. Must shower daily using liquid antibacterial soap and a separate white washcloth for each individual incision. 11. Routine sternal incision care. No powders, lotions, ointments on incisions. 12. Please call surgeon/ENVIRONMENTAL ENGINEERING PROFESSOR for temp greater than 101 F or purulent drainage from incisions. 13. Narcotic medications were discussed with the patient, including the potential for misuse, addiction, and abuse. Opiod Start Talking form was reviewed with the patient. 14. Refills need to be filled through montessori teacher/primary care physician. 15. A Red armband has been placed on the patient. It should be worn for 30 days post surgery and will be removed by the cardiac surgeons. If an ER visit is necessary, please make sure the number on the Red armband is called. REHAB FACILITY: [facility] FOR POST-OP SURGICAL PATIENTS WITH THE FOLLOWING: Coronary Artery Bypass Surgery (CABG), Mitral Valve Replacement/Repair ( MVR), Aortic Valve Replacement/Repair (AVR) RN TO CONTINUE EDUCATION FROM ``ROAD TO A HEALTH HEART PATIENT EDUCATION MANUAL (GIVEN TO PATIENT IN THE HOSPITAL) MEDICATION RECONCILIATION WITH EDUCATION NEEDED ON FIRST HOME VISIT EMPHASIZE IMPORTANCE OF WEARING BREAST SUPPORT/HEART HUGGER ENCOURAGE USE OF INCENTIVE SPIROMETER 10 X EVERY HOUR WHILE AWAKE ENCOURAGE UTILIZATION OF LOWER EXTREMITY COMPRESSION STOCKINGS/KURT HOSE and ELEVATE LEGS ABOVE LEVEL OF HEART WHILE AT REST. ENCOURAGE AMBULATION 3-5x/day INCREASING TOLERATES, WHILE AVOID EXTREMES IN TEMPERATURE LABORATORY: CBC, CMP TO BE DRAWN PER FACILITY PROTOCOL. TELEHEALTH PARAMETERS: WEIGHT: NOTIFY MD OF WEIGHT GAIN OF 2 LBS IN 24 HOURS OR 5 LBS IN ONE WEEK HR: NOTIFY MD OF HR <55 BPM OR HR>100 BPM BP: NOTIFY MD IF BP <90/55 OR BP>140/100 O2 SAT: NOTIFY MD IF PO2<93% ON ROOM AIR Discharge Disposition: TRANSFER TO SNF/ECF
[2018-01-09 14:52] LABS: Anisocytosis Slight; HCT 25.1 % (34.0-46.0); HGB 7.6 gm/dL (11.4-16.0); Hypochromasia Marked; MCH 26.1 pg (25.0-35.0); MCHC 30.2 g/dL (31.0-37.0); MCV 86.6 fL (80.0-100.0); Mean Platelet Volume 7.4; Platelet Count 760 k/uL (150-450); RDW 16.5 % (11.5-15.5); WBC 18.3 k/uL (3.8-10.6)
--- NOTE | 2018-01-09 22:35 | PN ---
PROGRESS NOTE DATE OF SERVICE: 01/09/2018 PRESENTING COMPLAINT: Tired. INTERVAL HISTORY: Patient is status post CABG followed by ischemic bowel and bowel perforation. Today patient is looking more peppy, sitting up, did tolerate a diet. The colostomy bag is functioning. Did walk. Edema is going down. REVIEW OF SYSTEMS: Done for constitutional, cardiovascular, GI, pulmonary; relevant findings as above. CURRENT MEDICATIONS: Reviewed that include: 1. Antibiotics. 2. IV ceftriaxone. 3. P.o. Diflucan. 4. P.o. Lasix. 5. Lopressor and. 6. Flagyl. EXAMINATION: Temperature 97.3, respirations 16, blood pressure 140/70, pulse ox 95% on room air. GENERAL APPEARANCE: Propped up, comfortable, awake. EYES: Pupils equal. Conjunctivae pale. HEENT: External appearance of nose and ears normal. Oral cavity normal. NECK: JVD unable to assess. Mass not palpable. RESPIRATORY: Effort normal. LUNGS: Diminished breath sounds. CARDIOVASCULAR: First and second sounds normal. No edema present. ABDOMEN: Soft, nontender. Ileostomy bag is present. Wound VAC in place. PSYCHIATRY: Alert and oriented x3. Mood and affect were normal. INVESTIGATIONS: White count 18.3, hemoglobin 7.6, platelets 760. ASSESSMENT: 1. Coronary artery disease, status post coronary bypass on December 11, 2017. 2. Acute ischemic bowel with perforation, right transverse colectomy, takedown ischemic portion, resulting in ileostomy. 3. Abdominal wound VAC in place. 4. Acute hypoxic respiratory failure, status post ventilator support, now on nasal cannula. 5. Hypertensive and septic shock, now recovered. 6. Paroxysmal atrial fibrillation, now in sinus rhythm. 7. Peripheral artery disease. 8. Hypothyroid. 9. Diabetes mellitus type 2. 10.Chronic low back pain from arthritis. 11.Depression, not otherwise specified. 12.Obesity; BMI 34.3. 13.Acute blood loss anemia expected from surgery and hospital acquired for blood draws. 14.Hyperlipidemia. 15.Hypoalbuminemia as an acute phase reactant. 16.Bilateral pleural effusion, postsurgical. 17.Essential hypertension. 18.Leukocytosis, probably reactive from inflammation, postsurgical. PLAN: Continue current medication and treatment plan. Patient will be going to the [facility] today. Care was discussed the patient. Questions were answered. Thank you Dr. Olvera. MMODL / IJN: [id number] /
--- NOTE | 2018-01-15 11:10 | CDI ---
Last Revision, March 2017 Documentation Clarification Form Date: 01/15/18 From: Sherry Bruce Phone: If you have a question regarding this query, please contact Teresa Duarte at [phone] between 8am and 5pm. Admit Date: 12/08/2017 8:14:00 AM Patient Name: Carolyn Sellers Visit Number: [id number] Discharge Date: 01/09/18 ATTENTION: The Clinical Documentation Specialists (CDI) and [facility] Coding Staff appreciate your assistance in clarifying documentation. Please respond to the clarification below the line at the bottom and electronically sign. The CDI & [facility] Coding staff will review the response and follow-up if needed. Please note: Queries are made part of the Legal Health Record. If you have any questions, please contact the author of this message via ITS. Yanelis Pa MD Acute hypoxic respiratory failure is documented in Dr. Chavez's and Dr. Dietz' s 12/21 - 01/09 progress notes. Acute hypoxic respiratory failure secondary to the perforated viscus with necrosis status post right colectomy and takedown of splenic flexure is documented in Dr. Salas's progress notes. The patient also developed severe sepsis with shock. Patients Admitting Diagnosis: Patient was admitted for CABG due to CAD. Patient had a subsequent necrosis of the colon due to hypoperfusion vs microembolism during the procedure. The patient had a right colectomy and needed prolonged mechanical ventilation after second surgery. Post-Operative Diagnosis: Necrosis of transverse colon, right colon. Procedure performed: Right colectomy, transverse colectomy, takedown of splenic flexure and ileostomy. Clinical Indicators: Pulse ox. 94% on 12/20 12/21: pO2 233, pCO2 40, pH 1.30 Treatment: Prolonged mechanical ventilation with patient having to be reintubated. In order to accurately reflect this patients severity of illness, please clarify if the post-operative diagnosis is: An expected post-procedural or post-surgical condition; Integral to the procedure; Inherent to the procedure; An unexpected post-procedural or post-surgical condition related to surgical care; Other, please specify Unable to determine An expected post-procedural or post-surgical condition; [facility]
== END 2018-01-09 17:07 | DRG 233 ==
LOC: CATHCVL 06:21 → 6SEL 08:06 → CATHCVL 09:20 → 6ICU 12-11 06:33 → 6SEL 12-13 18:20 → 6ICU 12-15 16:05 → 6SEL 12-28 02:59
PROVIDERS: ADMIT Surgery; ATTEND Surgery
PROC: 4A023N7 Measurement of Cardiac Sampling and Pressure, Left Heart, Percutaneous Approach (ICD-10-PCS; 2017-12-08)
PROC: B2111ZZ Fluoroscopy of Multiple Coronary Arteries using Low Osmolar Contrast (ICD-10-PCS; 2017-12-08)
PROC: 02L70CK Occlusion of Left Atrial Appendage with Extraluminal Device, Open Approach (ICD-10-PCS; 2017-12-11)
PROC: 5A1221Z Performance of Cardiac Output, Continuous (ICD-10-PCS; 2017-12-11)
PROC: 5A1223Z Performance of Cardiac Pacing, Continuous (ICD-10-PCS; 2017-12-11)
PROC: 30233N0 Transfusion of Autologous Red Blood Cells into Peripheral Vein, Percutaneous Approach (ICD-10-PCS; 2017-12-11)
PROC: 0211099 Bypass Coronary Artery, Two Arteries from Left Internal Mammary with Autologous Venous Tissue, Open Approach (ICD-10-PCS; principal; 2017-12-11 08:00)
PROC: 021109W Bypass Coronary Artery, Two Arteries from Aorta with Autologous Venous Tissue, Open Approach (ICD-10-PCS; 2017-12-11 08:00)
PROC: 06BQ4ZZ Excision of Left Saphenous Vein, Percutaneous Endoscopic Approach (ICD-10-PCS; 2017-12-11 08:00)
PROC: B54DZZZ Ultrasonography of Bilateral Lower Extremity Veins (ICD-10-PCS; 2017-12-13)
PROC: 0DTF0ZZ Resection of Right Large Intestine, Open Approach (ICD-10-PCS; 2017-12-20)
PROC: 0D1B0Z4 Bypass Ileum to Cutaneous, Open Approach (ICD-10-PCS; 2017-12-20)
DX: I25.10 Atherosclerotic heart disease of native coronary artery without angina pectoris (principal); A41.51 Sepsis due to Escherichia coli [E. coli]; G93.41 Metabolic encephalopathy; R65.21 Severe sepsis with septic shock; K55.049 Acute infarction of large intestine, extent unspecified; K63.1 Perforation of intestine (nontraumatic); K65.1 Peritoneal abscess; J96.01 Acute respiratory failure with hypoxia; T81.30XA Disruption of wound, unspecified, initial encounter; T81.89XA Other complications of procedures, not elsewhere classified, initial encounter; D62 Acute posthemorrhagic anemia; E87.2 Acidosis; J90 Pleural effusion, not elsewhere classified; J98.11 Atelectasis; K56.7 Ileus, unspecified; N39.0 Urinary tract infection, site not specified; R18.8 Other ascites; E03.9 Hypothyroidism, unspecified; E88.09 Other disorders of plasma-protein metabolism, not elsewhere classified; I48.0 Paroxysmal atrial fibrillation; K66.8 Other specified disorders of peritoneum; E11.51 Type 2 diabetes mellitus with diabetic peripheral angiopathy without gangrene; D71 Functional disorders of polymorphonuclear neutrophils; I07.1 Rheumatic tricuspid insufficiency; E77.8 Other disorders of glycoprotein metabolism; E86.0 Dehydration; I37.1 Nonrheumatic pulmonary valve insufficiency; L98.8 Other specified disorders of the skin and subcutaneous tissue; E66.9 Obesity, unspecified; E78.5 Hyperlipidemia, unspecified; F17.201 Nicotine dependence, unspecified, in remission; F32.9 Major depressive disorder, single episode, unspecified; F41.9 Anxiety disorder, unspecified; G89.29 Other chronic pain; I10 Essential (primary) hypertension; J30.9 Allergic rhinitis, unspecified; G47.10 Hypersomnia, unspecified; M25.519 Pain in unspecified shoulder; M54.5 Low back pain; M25.569 Pain in unspecified knee; R74.8 Abnormal levels of other serum enzymes; Z96.653 Presence of artificial knee joint, bilateral; Z91.81 History of falling; Z87.440 Personal history of urinary (tract) infections; Z86.718 Personal history of other venous thrombosis and embolism; Z68.34 Body mass index [BMI] 34.0-34.9, adult; Z79.82 Long term (current) use of aspirin; Z79.84 Long term (current) use of oral hypoglycemic drugs; Z79.891 Long term (current) use of opiate analgesic; Z79.899 Other long term (current) drug therapy; Z79.890 Hormone replacement therapy; D72.829 Elevated white blood cell count, unspecified; R33.8 Other retention of urine; R39.15 Urgency of urination; T50.905A Adverse effect of unspecified drugs, medicaments and biological substances, initial encounter; Y92.239 Unspecified place in hospital as the place of occurrence of the external cause; G89.18 Other acute postprocedural pain; R32 Unspecified urinary incontinence; R15.9 Full incontinence of feces; E78.00 Pure hypercholesterolemia, unspecified; M19.90 Unspecified osteoarthritis, unspecified site; Z90.49 Acquired absence of other specified parts of digestive tract; Z80.49 Family history of malignant neoplasm of other genital organs; Z82.49 Family history of ischemic heart disease and other diseases of the circulatory system
CPT/HCPCS: 36569; 70450; 71045; 71046; 71250; 74150; 74176; 76604; 76937; 77001; 80048; 80053; 80061; 80074; 80202; 81001; 82150; 82272; 82330; 82805; 83036; 83605; 83690; 83735; 84100; 84132; 84134; 84443; 84478; 85025; 85027; 85520; 85610; 85730; 86850; 86891; 86900; 86901; 86920; 87040; 87045; 87046; 87070; 87077; 87086; 87186; 87324; 87328; 87329; 88307; 93306; 93458; 93880; 93970; 94002; 94003; 94640; 94760

== ENCOUNTER 2018-01-24 11:06 | Inpatient (IN) | payer MEDICARE ==
[2018-01-24] MEDS ORDERED: SODIUM CHLORIDE 0.9% 1,000 ML IV STA (11:53)
[2018-01-24] MEDS ORDERED: ONDANSETRON 4 MG/2 ML VIAL IVP STA (11:53)
--- NOTE | 2018-01-24 11:57 | ED ---
General Adult HPI - General Chief complaint: Weakness Stated complaint: Weakness Time Seen by Provider: 01/24/18 11:06 Source: patient, EMS, RN notes reviewed Mode of arrival: EMS Limitations: physical limitation - History of Present Illness Initial comments: This is a 9-year-old female who presents emergency Department complaining of generalized weakness and loss of appetite and vomiting. Patient states about 6 weeks ago she had open heart surgery followed by a colectomy which left her with a colostomy and an open wound in her abdomen. Patient states after spitting 31 days in the hospital she was sent to a rehabilitation center. Patient states since being there she has lost about 20 pounds and has had no appetite and has been vomiting at least once a day. Patient states she is so weak she can't get out of bed so all she does is lay around and become weaker. patient denies any fever or chills. Patient denies any diarrhea patient denies any chest pain difficulty breathing or shortness of breath. Patient denies any headache patient denies numbness weakness. Patient denies any lightheadedness or dizziness. Patient states she has had no injury or trauma. - Related Data Home Medications Medication Instructions Recorded Confirmed DULoxetine HCL [Cymbalta] 60 mg PO DAILY 12/14/16 12/08/17 Ergocalciferol (Vitamin D2) 50,000 unit PO TUFR 12/14/16 12/08/17 [Vitamin D2] Levothyroxine Sodium [Synthroid] 75 mcg PO DAILY 12/14/16 12/08/17 Cyanocobalamin [Vitamin B-12] 500 mcg PO DAILY 12/04/17 12/08/17 Previous Rx's Medication Instructions Recorded Acetaminophen Tab [Tylenol] 325 mg PO Q4HR PRN tab 01/09/18 Acetaminophen Tab [Tylenol] 650 mg PO Q4HR PRN tab 01/09/18 Amiodarone [Cordarone] 100 mg PO DAILY tab 01/09/18 Apixaban [Eliquis] 5 mg PO BID tab 01/09/18 Ascorbic Acid [Vitamin C] 500 mg PO DAILY@1200 tab 01/09/18 Aspirin 81 mg PO DAILY chew 01/09/18 Atorvastatin [Lipitor] 40 mg PO DAILY tab 01/09/18 Calcium Carbonate [Tums] 500 mg PO QID PRN chew 01/09/18 Ferrous Sulfate [Iron (65 MG 325 mg PO W/LUNCH tab 01/09/18 Elemental)] Fluconazole [Diflucan] 100 mg PO DAILY 2 Days tab 01/09/18 Furosemide [Lasix] 40 mg PO BID@0900,1600 tab 01/09/18 Insulin Aspart [NovoLOG 0 unit SQ [id number] vial 01/09/18 (formulary)] Ipratropium-Albuterol Nebulize 3 ml INHALATION RT-Q2H PRN 01/09/18 [Duoneb 0.5 mg-3 mg/3 ml Soln] ampul.neb Ipratropium-Albuterol Nebulize 3 ml INHALATION RT-QID ampul.neb 01/09/18 [Duoneb 0.5 mg-3 mg/3 ml Soln] Losartan [Cozaar] 25 mg PO DAILY@1200 tab 01/09/18 Metoprolol Tartrate [Lopressor] 25 mg PO Q12HR tab 01/09/18 Nystatin 100,000 Unit/ml Susp 500,000 unit PO QID cup 01/09/18 [Mycostatin Oral Susp] Pantoprazole [Protonix] 40 mg PO AC-BRKFST tablet. 01/09/18 Potassium Chloride ER [K-Dur 20] 20 meq PO DAILY #7 tab 01/09/18 cefTRIAXone [Rocephin] 1,000 mg IVP Q24HR 2 Days syringe 01/09/18 metroNIDAZOLE [Flagyl] 500 mg PO TID 2 Days tab 01/09/18 oxyCODONE ER [OxyCONTIN] 20 mg PO Q8HR #30 tab.er.12h 01/09/18 Allergies Allergy/AdvReac Type Severity Reaction Status Date / Time No Known Allergies Allergy Verified 12/08/17 06:38 Review of Systems ROS Statement: Those systems with pertinent positive or pertinent negative responses have been documented in the HPI. ROS Other: All systems not noted in ROS Statement are negative. Past Medical History Past Medical History: Atrial Fibrillation, Coronary Artery Disease (CAD), Diabetes Mellitus, Hyperlipidemia, Hypertension, Osteoarthritis (OA), Thyroid Disorder, Vascular Disorder Additional Past Medical History / Comment(s): Pt. states poor circulation in RLE due to an artificial bypass. SOB, dizzy spells @ times. See Dr. Blackmon' s H & P. Chronic back pain, bilateral shoulder problems. History of Any Multi-Drug Resistant Organisms: None Reported Past Surgical History: Appendectomy, Breast Surgery, Cholecystectomy, Orthopedic Surgery Additional Past Surgical History / Comment(s): Femoral popliteal bypass. Bilateral knee replacements. Left breast surgery for benign tumor. Epidurals to lower back. Past Anesthesia/Blood Transfusion Reactions: No Reported Reaction Past Psychological History: Anxiety, Depression Smoking Status: Former smoker Past Alcohol Use History: Rare Past Drug Use History: None Reported - Past Family History Mother Family Medical History: Cancer Additional Family Medical History / Comment(s): Uterine cancer. General Exam - General Exam Comments Initial Comments: GENERAL: Patient is well-developed and well-nourished. Patient is nontoxic and well- hydrated and is in mild distress. ENT: Neck is soft and supple. No significant lymphadenopathy is noted. Oropharynx is clear. Dry mucous membranes. Neck has full range of motion without eliciting any pain. EYES: The sclera were anicteric and conjunctiva were pink and moist. Extraocular movements were intact and pupils were equal round and reactive to light. Eyelids were unremarkable. PULMONARY: Unlabored respirations. Good breath sounds bilaterally. No audible rales rhonchi or wheezing was noted. CARDIOVASCULAR: There is a regular rate and rhythm without any murmurs gallops or rubs. Patient 's sternotomy scar is healing well with no signs of infection. ABDOMEN: Patient has a colostomy and an open wound which does not show any signs of infection. SKIN: Skin is clear with no lesions or rashes and otherwise unremarkable. NEUROLOGIC: Patient is alert and oriented x3. Cranial nerves II through XII are grossly intact. Motor and sensory are also intact. Normal speech, volume and content. Symmetrical smile. MUSCULOSKELETAL: Normal extremities with adequate strength and full range of motion. No lower extremity swelling or edema. No calf tenderness. LYMPHATICS: No significant lymphadenopathy is noted PSYCHIATRIC: Normal psychiatric evaluation. Limitations: physical limitation Course Vital Signs 01/24/18 01/24/18 11:13 12:13 Temperature 98.4 F Pulse Rate 82 80 Respiratory 17 17 Rate Blood Pressure 124/63 128/60 O2 Sat by Pulse 95 97 Oximetry Medical Decision Making - Medical Decision Making EKG shows normal sinus rhythm at 79 bpm LA interval 180 QRS is 90 QT interval 446 QTC is 511. Patient's EKG shows no ST segment elevation or depression. Patient refused chest x-ray. Patient had 26,000 white count though no infection was noted I started the patient on Zosyn. I spoke with Dr. Dietz he agreed to admit the patient admitted the patient I wrote a minute orders I consult to Dr. Montoya. - Lab Data Result diagrams: 01/24/18 12:07 01/24/18 12:07 Lab Results 01/24/18 01/24/18 01/24/18 Range/Units 12:07 12:07 12:07 WBC 26.7 H (3.8-10.6) k/uL RBC 3.74 L (3.80-5.40) m/uL Hgb 9.4 L D (11.4-16.0) gm/dL Hct 30.2 L (34.0-46.0) % MCV 80.7 D (80.0-100.0) fL MCH 25.3 (25.0-35.0) pg MCHC 31.3 (31.0-37.0) g/dL RDW 16.3 H (11.5-15.5) % Plt Count 928 H (150-450) k/uL Neutrophils % 89 % Lymphocytes % 5 % Monocytes % 3 % Eosinophils % 1 % Basophils % 1 % Neutrophils # 23.9 H (1.3-7.7) k/uL Lymphocytes # 1.4 (1.0-4.8) k/uL Monocytes # 0.9 (0-1.0) k/uL Eosinophils # 0.2 (0-0.7) k/uL Basophils # 0.1 (0-0.2) k/uL Hypochromasia Slight Anisocytosis Slight PT (9.0-12.0) sec INR (<1.2) APTT (22.0-30.0) sec Sodium 130 L (137-145) mmol/L Potassium 4.1 (3.5-5.1) mmol/L Chloride 95 L (98-107) mmol/L Carbon Dioxide 22 (22-30) mmol/L Anion Gap 13 mmol/L BUN 20 H (7-17) mg/dL Creatinine 0.56 (0.52-1.04) mg/dL Est GFR (CKD-EPI)AfAm >90 (>60 ml/min/1.73 sqM) Est GFR (CKD-EPI)NonAf >90 (>60 ml/min/1.73 sqM) Glucose 152 H (74-99) mg/dL Plasma Lactic Acid Frederick (0.7-2.0) mmol/L Calcium 9.1 (8.4-10.2) mg/dL Magnesium 1.7 (1.6-2.3) mg/dL Total Bilirubin 0.3 (0.2-1.3) mg/dL AST 25 (14-36) U/L ALT 18 (9-52) U/L Alkaline Phosphatase 475 H (38-126) U/L Total Creatine Kinase <20 L (30-135) U/L CK-MB (CK-2) 0.3 (0.0-2.4) ng/mL CK-MB (CK-2) Rel Index Troponin I <0.012 (0.000-0.034) ng/mL Total Protein 6.1 L (6.3-8.2) g/dL Albumin 2.8 L (3.5-5.0) g/dL Urine Color Urine Appearance (Clear) Urine pH (5.0-8.0) Ur Specific [place] (1.001-1.035) Urine Protein (Negative) Urine Glucose (UA) (Negative) Urine Ketones (Negative) Urine Blood (Negative) Urine Nitrite (Negative) Urine Bilirubin (Negative) Urine Urobilinogen (<2.0) mg/dL Ur Leukocyte Esterase (Negative) Urine WBC (0-5) /hpf Ur Squamous Epith Cells (0-4) /hpf Urine Bacteria (None) /hpf 01/24/18 01/24/18 01/24/18 Range/Units 12:07 12:07 12:38 WBC (3.8-10.6) k/uL RBC (3.80-5.40) m/uL Hgb (11.4-16.0) gm/dL Hct (34.0-46.0) % MCV (80.0-100.0) fL MCH (25.0-35.0) pg MCHC (31.0-37.0) g/dL RDW (11.5-15.5) % Plt Count (150-450) k/uL Neutrophils % % Lymphocytes % % Monocytes % % Eosinophils % % Basophils % % Neutrophils # (1.3-7.7) k/uL Lymphocytes # (1.0-4.8) k/uL Monocytes # (0-1.0) k/uL Eosinophils # (0-0.7) k/uL Basophils # (0-0.2) k/uL Hypochromasia Anisocytosis PT 10.9 (9.0-12.0) sec INR 1.1 (<1.2) APTT 29.2 (22.0-30.0) sec Sodium (137-145) mmol/L Potassium (3.5-5.1) mmol/L Chloride (98-107) mmol/L Carbon Dioxide (22-30) mmol/L Anion Gap mmol/L BUN (7-17) mg/dL Creatinine (0.52-1.04) mg/dL Est GFR (CKD-EPI)AfAm (>60 ml/min/1.73 sqM) Est GFR (CKD-EPI)NonAf (>60 ml/min/1.73 sqM) Glucose (74-99) mg/dL Plasma Lactic Acid Frederick 2.1 H* (0.7-2.0) mmol/L Calcium (8.4-10.2) mg/dL Magnesium (1.6-2.3) mg/dL Total Bilirubin (0.2-1.3) mg/dL AST (14-36) U/L ALT (9-52) U/L Alkaline Phosphatase (38-126) U/L Total Creatine Kinase (30-135) U/L CK-MB (CK-2) (0.0-2.4) ng/mL CK-MB (CK-2) Rel Index Troponin I (0.000-0.034) ng/mL Total Protein (6.3-8.2) g/dL Albumin (3.5-5.0) g/dL Urine Color Yellow Urine Appearance Clear (Clear) Urine pH 5.5 (5.0-8.0) Ur Specific [place] 1.009 (1.001-1.035) Urine Protein Negative (Negative) Urine Glucose (UA) Negative (Negative) Urine Ketones Negative (Negative) Urine Blood Negative (Negative) Urine Nitrite Negative (Negative) Urine Bilirubin Negative (Negative) Urine Urobilinogen <2.0 (<2.0) mg/dL Ur Leukocyte Esterase Small H (Negative) Urine WBC 3 (0-5) /hpf Ur Squamous Epith Cells <1 (0-4) /hpf Urine Bacteria Few H (None) /hpf Disposition Clinical Impression: Leukocytosis, Acute vomiting, Generalized weakness, Hyponatremia, Weight loss, Appetite loss Disposition: ADMITTED IP TO THIS HOSP Referrals: Diaz Alcala DO [Primary Care Provider] - 1-2 days Time of Disposition: 13:28
[2018-01-24 12:24] LABS: Anisocytosis Slight; Basophils # (A) 0.1 k/uL (0-0.2); Basophils % (A) 1 %; Eosinophils # (A) 0.2 k/uL (0-0.7); Eosinophils % (A) 1 %; HCT 30.2 % (34.0-46.0); Hypochromasia Slight; Lymphocytes # (A) 1.4 k/uL (1.0-4.8); Lymphocytes % (A) 5 %; MCH 25.3 pg (25.0-35.0); MCHC 31.3 g/dL (31.0-37.0); Mean Platelet Volume 6.6; Monocytes # (A) 0.9 k/uL (0-1.0); Monocytes % (A) 3 %; Neutrophils # (A) 23.9 k/uL (1.3-7.7); Neutrophils % (A) 89 %; Platelet Count 928 k/uL (150-450); RBC 3.74 m/uL (3.80-5.40); RDW 16.3 % (11.5-15.5); WBC 26.7 k/uL (3.8-10.6)
[2018-01-24 12:27] LABS: HGB 9.4 gm/dL (11.4-16.0); MCV 80.7 fL (80.0-100.0)
[2018-01-24 12:34] LABS: INR 1.1 (<1.2); Partial Thromboplastin Time 29.2 sec (22.0-30.0); Prothrombin Time 10.9 sec (9.0-12.0)
[2018-01-24 12:41] LABS: ALT 18 U/L (9-52); AST 25 U/L (14-36); Albumin 2.8 g/dL (3.5-5.0); Alkaline Phosphatase 475 U/L (38-126); Anion Gap 13 mmol/L; Blood Urea Nitrogen 20 mg/dL (7-17); Calcium 9.1 mg/dL (8.4-10.2); Carbon Dioxide 22 mmol/L (22-30); Chloride 95 mmol/L (98-107); Glucose 152 mg/dL (74-99); Magnesium 1.7 mg/dL (1.6-2.3); Potassium 4.1 mmol/L (3.5-5.1); Sodium 130 mmol/L (137-145); Total Bilirubin 0.3 mg/dL (0.2-1.3); Total Protein 6.1 g/dL (6.3-8.2)
[2018-01-24 12:48] LABS: Creatine Kinase <20 U/L (30-135)
[2018-01-24 13:00] LABS: Creatine Kinase MB 0.3 ng/mL (0.0-2.4); Troponin I <0.012 ng/mL (0.000-0.034)
[2018-01-24 13:08] LABS: Appearance,Urine Clear (Clear); Bacteria,Urine Few /hpf; Bilirubin,Urine Negative (Negative); Blood,Urine Negative (Negative); Color,Urine Yellow; Glucose,Urine (UA) Negative (Negative); Ketones,Urine Negative (Negative); Leukocyte Esterase,Urine Small (Negative); Nitrite,Urine Negative (Negative); PH, Urine 5.5 (5.0-8.0); Protein,Urine Negative (Negative); Specific Gravity,Urine 1.009 (1.001-1.035); Squamous Epithelial Cell,Urine <1 /hpf (0-4); Urobilinogen,Urine <2.0 mg/dL (<2.0); WBC,Urine 3 /hpf (0-5)
[2018-01-24] MEDS ORDERED: PIPERACILLIN-TAZOBACTAM 3.375 GM in DEXTROSE/WATER 1 50ML.BAG IVPB STA (13:22)
[2018-01-24] MEDS ORDERED: SODIUM CHLORIDE 0.9% 1,000 ML IV ONE (13:29)
[2018-01-24] MEDS: IOPAMIDOL-300 CONTRAST 30 ML VIAL (ORAL USE) PO PRN ×2 (15:36→16:32)
[2018-01-24] MEDS ORDERED: IPRATROPIUM-ALBUTEROL 3 ML NEB INHALATION PRN (15:44)
--- NOTE | 2018-01-24 15:53 | P.GSCN ---
History of Present Illness Consult date: 01/24/18 Reason for Consult: Nausea vomiting loss of appetite History of present illness: 72-year-old female who was transferred from [facility] with a chief complaint of developing generalized weakness loss of appetite nausea sensation with vomiting. Patient stated over the last week refused to get out of bed had no energy and every time she attempted to sit up felt nauseated and vomited. Patient stated she did not feel like eating due to the nausea sensation patient stated that she was just so weak he took too much energy to get out of bed. Patient's denying abdominal pain dizziness lightheadedness or chest pain. Patient states that she has been taking care of her ostomy and did note odor in the stool patient was sent to the rehab center after undergoing a lengthy hospitalization. 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 Being seen this afternoon patient's awake and alert and oriented 3 chief complaint is feeling very weak. Patient stated that she felt too weak to get out of bed or eat anything. Electrolytes within normal limits afebrile and sats on room air 98% patient's denying any dizziness lightheadedness chest pain or shortness of breath Review of Systems Essentially unremarkable except as mentioned in the present on Past Medical History Past Medical History: Atrial Fibrillation, Coronary Artery Disease (CAD), Diabetes Mellitus, Hyperlipidemia, Hypertension, Osteoarthritis (OA), Thyroid Disorder, Vascular Disorder Additional Past Medical History / Comment(s): Pt. states poor circulation in RLE due to an artificial bypass. past fall, Chronic back pain, bilateral shoulder problems djd has difficulty with rom.past uti-ecoli History of Any Multi-Drug Resistant Organisms: None Reported Past Surgical History: Appendectomy, Breast Surgery, Cholecystectomy, Orthopedic Surgery Additional Past Surgical History / Comment(s): "rt leg sx"artificial artery". Bilateral knee replacements. 2016-rt rotaotr cuff sxLeft breast surgery for benign tumor. Epidurals to lower back. heart cath 12-08-17, quad cabg 12-11-17, colectomy/ileostomy- has abd wound w/ wound vac. picc line since removed. Past Anesthesia/Blood Transfusion Reactions: No Reported Reaction Past Psychological History: Anxiety, Depression Additional Psychological History / Comment(s): pt currently at [facility] since 01-09-18. pt stated at first was able to get up with asssit and walker short distance but for past week has been n/v and to weak to get out of bed. Smoking Status: Former smoker Past Alcohol Use History: Rare Additional Past Alcohol Use History / Comment(s): started smoking 1965 Quit smoking in 2007, smoked 1 PPD . no curent etoh use Past Drug Use History: None Reported - Past Family History Mother Family Medical History: Cancer Additional Family Medical History / Comment(s): Uterine cancer. Medications and Allergies Home Medications Medication Instructions Recorded Confirmed Type DULoxetine HCL [Cymbalta] 60 mg PO DAILY 12/14/16 01/24/18 History Ergocalciferol (Vitamin D2) 50,000 unit PO TU 12/14/16 01/24/18 History [Vitamin D2] Levothyroxine Sodium [Synthroid] 75 mcg PO DAILY 12/14/16 01/24/18 History Cyanocobalamin [Vitamin B-12] 500 mcg PO DAILY 12/04/17 01/24/18 History Amiodarone [Cordarone] 100 mg PO DAILY tab 01/09/18 01/24/18 Rx Apixaban [Eliquis] 5 mg PO BID tab 01/09/18 01/24/18 Rx Aspirin 81 mg PO DAILY chew 01/09/18 01/24/18 Rx Calcium Carbonate [Tums] 500 mg PO QID PRN chew 01/09/18 01/24/18 Rx Furosemide [Lasix] 40 mg PO BID@0900,1600 tab 01/09/18 01/24/18 Rx Ipratropium-Albuterol Nebulize 3 ml INHALATION RT-Q2H PRN 01/09/18 01/24/18 Rx [Duoneb 0.5 mg-3 mg/3 ml Soln] ampul.neb Ipratropium-Albuterol Nebulize 3 ml INHALATION RT-QID ampul.neb 01/09/18 Rx [Duoneb 0.5 mg-3 mg/3 ml Soln] Metoprolol Tartrate [Lopressor] 25 mg PO Q12HR tab 01/09/18 01/24/18 Rx Pantoprazole [Protonix] 40 mg PO AC-BRKFST tablet. 01/09/18 01/24/18 Rx Potassium Chloride ER [K-Dur 20] 20 meq PO DAILY #7 tab 01/09/18 01/24/18 Rx Amino Acids/Protein Hydrolys 30 ml PO BID 01/24/18 01/24/18 History [Pro-Stat Supplement] Ascorbic Acid [Vitamin C] 500 mg PO DAILY 01/24/18 01/24/18 History Atorvastatin [Lipitor] 40 mg PO HS 01/24/18 01/24/18 History Losartan [Cozaar] 25 mg PO DAILY 01/24/18 01/24/18 History oxyCODONE HCL 20 mg PO Q8H 01/24/18 01/24/18 History Allergies Allergy/AdvReac Type Severity Reaction Status Date / Time No Known Allergies Allergy Verified 01/24/18 14:35 Surgical - Exam Vital Signs Temp Pulse Resp BP Pulse Ox 98.4 F 82 17 124/63 95 01/24/18 11:13 01/24/18 11:13 01/24/18 11:13 01/24/18 11:13 01/24/18 11:13 GENERAL APPEARANCE: Pale 72 year old female is alert, oriented x 3 in no acute distress. Denies dizziness lightheadedness fever or chills shortness of breath or chest pain VITAL SIGNS: Reviewed HEENT: Head is normocephalic and atraumatic. Pupils are equal and reactive. The nares are patent. Oropharynx is clear without lesions. NECK: Supple without lymphadenopathy. Traches midline. HEART: S1, S2. Regular rate and rhythm. No murmur noted LUNGS: No crackles or wheezes are heard. No shortness of breath no cough noted room air sats are 98% ABDOMEN: Soft, wound VAC to surgical site ostomy moderate amount of brown stool noted in the bag nontender, nondistended with good bowel sounds. No peritoneal signs. No palpable organomegaly or masses. Reports no appetite nausea sensation no active emesis EXTREMITIES: Normal skin color and turgor. No cyanosis, rash, ulceration, clubbing or edema. Radial pedal pulses are 2/4 bilaterally. NEUROLOGICAL: No focal deficits. Strength and sensation are grossly intact. Results - Labs 01/24/18 12:07 01/24/18 12:07 Abnormal Lab Results - Last 24 Hours (Table) 01/24/18 01/24/18 01/24/18 Range/Units 12:07 12:07 12:07 WBC 26.7 H (3.8-10.6) k/uL RBC 3.74 L (3.80-5.40) m/uL Hgb 9.4 L D (11.4-16.0) gm/dL Hct 30.2 L (34.0-46.0) % RDW 16.3 H (11.5-15.5) % Plt Count 928 H (150-450) k/uL Neutrophils # 23.9 H (1.3-7.7) k/uL Sodium 130 L (137-145) mmol/L Chloride 95 L (98-107) mmol/L BUN 20 H (7-17) mg/dL Glucose 152 H (74-99) mg/dL Plasma Lactic Acid Frederick (0.7-2.0) mmol/L Alkaline Phosphatase 475 H (38-126) U/L Total Creatine Kinase <20 L (30-135) U/L Total Protein 6.1 L (6.3-8.2) g/dL Albumin 2.8 L (3.5-5.0) g/dL Ur Leukocyte Esterase (Negative) Urine Bacteria (None) /hpf 01/24/18 01/24/18 Range/Units 12:07 12:38 WBC (3.8-10.6) k/uL RBC (3.80-5.40) m/uL Hgb (11.4-16.0) gm/dL Hct (34.0-46.0) % RDW (11.5-15.5) % Plt Count (150-450) k/uL Neutrophils # (1.3-7.7) k/uL Sodium (137-145) mmol/L Chloride (98-107) mmol/L BUN (7-17) mg/dL Glucose (74-99) mg/dL Plasma Lactic Acid Frederick 2.1 H* (0.7-2.0) mmol/L Alkaline Phosphatase (38-126) U/L Total Creatine Kinase (30-135) U/L Total Protein (6.3-8.2) g/dL Albumin (3.5-5.0) g/dL Ur Leukocyte Esterase Small H (Negative) Urine Bacteria Few H (None) /hpf Diabetes panel 01/24/18 Range/Units 12:07 Sodium 130 L (137-145) mmol/L Potassium 4.1 (3.5-5.1) mmol/L Chloride 95 L (98-107) mmol/L Carbon Dioxide 22 (22-30) mmol/L BUN 20 H (7-17) mg/dL Creatinine 0.56 (0.52-1.04) mg/dL Glucose 152 H (74-99) mg/dL Calcium 9.1 (8.4-10.2) mg/dL AST 25 (14-36) U/L ALT 18 (9-52) U/L Alkaline Phosphatase 475 H (38-126) U/L Total Protein 6.1 L (6.3-8.2) g/dL Albumin 2.8 L (3.5-5.0) g/dL Calcium panel 01/24/18 Range/Units 12:07 Calcium 9.1 (8.4-10.2) mg/dL Albumin 2.8 L (3.5-5.0) g/dL Pituitary panel 01/24/18 Range/Units 12:07 Sodium 130 L (137-145) mmol/L Potassium 4.1 (3.5-5.1) mmol/L Chloride 95 L (98-107) mmol/L Carbon Dioxide 22 (22-30) mmol/L BUN 20 H (7-17) mg/dL Creatinine 0.56 (0.52-1.04) mg/dL Glucose 152 H (74-99) mg/dL Calcium 9.1 (8.4-10.2) mg/dL Adrenal panel 01/24/18 Range/Units 12:07 Sodium 130 L (137-145) mmol/L Potassium 4.1 (3.5-5.1) mmol/L Chloride 95 L (98-107) mmol/L Carbon Dioxide 22 (22-30) mmol/L BUN 20 H (7-17) mg/dL Creatinine 0.56 (0.52-1.04) mg/dL Glucose 152 H (74-99) mg/dL Calcium 9.1 (8.4-10.2) mg/dL Total Bilirubin 0.3 (0.2-1.3) mg/dL AST 25 (14-36) U/L ALT 18 (9-52) U/L Alkaline Phosphatase 475 H (38-126) U/L Total Protein 6.1 L (6.3-8.2) g/dL Albumin 2.8 L (3.5-5.0) g/dL Assessment and Plan Assessment: Impression Present on admission generalized weakness loss of appetite vomiting unintentional weight loss 20 pounds unclear etiology Present on admission leukocytosis 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 coronary artery disease involving the left main coronary artery Preserved left ventricular function paroxysmal atrial fibrillation EKG on admission sinus rhythm Recent December 11 quadruple coronary artery bypass grafting Debility Plan Follow up on the CAT scan abdomen and pelvis results pending Continue the wound VAC settings the same as at the ECF Further surgical recommendations pending CAT scan results Defer to medicine to address medical issues DVT and GI prophylaxis Will follow with you Surgical consultation note dictated for The above impression and plan of care have been discussed and directed by signing physician. Missy Baca nurse practitioner acting as scribe for signing physician.
[2018-01-24] MEDS: FUROSEMIDE 40 MG TAB PO SCH (16:30)
[2018-01-24] MEDS: IPRATROPIUM-ALBUTEROL 3 ML NEB INHALATION SCH ×2 (16:44→19:46)
--- NOTE | 2018-01-24 19:22 | CT ---
EXAMINATION TYPE: CT abdomen pelvis w con DATE OF EXAM: 01/24/2018 COMPARISON: 12/30/2017 HISTORY: Nausea and vomiting. CT DLP: 1415 mGycm Automated exposure control for dose reduction was used. TECHNIQUE: Helical acquisition of images was performed from the lung bases through the pelvis. CONTRAST: Performed with Oral Contrast and with IV Contrast, patient injected with 100ml mL of Isovue M300. FINDINGS: There is left pleural effusion with some atelectasis at the left lung base. There is mild atelectasis right posterior lung base. Heart size is normal. There are numerous calcified splenic granulomata. T here are clips from cholecystectomy. There is no pancreatic mass. Bile ducts are not dilated. There i s no discrete liver mass. There is a 12 x 6 cm elongated fluid collection with thick developed capsul e at the inferior right lobe of the liver extending into the right paracolic gutter. There is linear density in the subcutaneous fat over the right lower anterior abdomen consistent with recent surgery. There is no adrenal mass. There is 1 cm cortical cyst upper pole left kidney. There is worsening a co rtical cyst anterior left kidney. There is no hydronephrosis. The ureters are not dilated. Abdominal aorta is atheromatous. There is no retroperitoneal adenopathy. There is no mesenteric adenopathy. There is a 6 x 2.5 x 6 cm fluid collection in the pelvis on the superior aspect of the urinary bladd er. This has also a thin capsule. There is right lower quadrant colostomy. There are numerous diverti cula in the sigmoid colon. Colostomy appears to be of the transverse colon. The bladder distends smoothly. There is no free fluid in the pelvis at the floor. There are spondylotic changes in the lumbar spine. I see no bony destructive process. IMPRESSION: THERE ARE FLUID COLLECTIONS IN THE ABDOMEN DESCRIBED ABOVE ADJACENT TO THE LIVER IN THE RIGHT PARA COLIC GUTTER AND ALSO IN THE PELVIS ABOVE THE URINARY BLADDER THAT ARE SMALLER THAN OLD CT SCAN OF 12/30/2017. I SEE NO NEW FLUID COLLECTION. MARGINS ARE DEVELOPED WITH A CAPSULE. THIS IS CONSISTENT WITH CHRONIC ABSCESS. POSTSURGICAL CHANGES WITH AIR BUBBLES AT THE INCISION SITE OVER THE ANTERIOR LOWER A BDOMEN IN THE SUBCUTANEOUS FAT. THERE IS IMPROVEMENT OF THE DEHISCENCE EVIDENT ON THE OLD CT SCAN. STABLE PLEURAL FLUID IN ATELECTASIS IN THE LEFT LOWER LOBE.
[2018-01-24] MEDS: ATORVASTATIN 40 MG TAB PO SCH (20:27)
[2018-01-24] MEDS: APIXABAN 5 MG TAB PO SCH (20:27)
[2018-01-24] MEDS: METOPROLOL TARTRATE 25 MG TAB PO SCH (20:27)
[2018-01-24] MEDS ORDERED: NON-FORMULARY DRUG (Amino Acids/Protein Hydrolys [Pro-Stat Supplement] 30 ML) PO SCH (21:00)
[2018-01-24] MEDS ORDERED: ANIDULAFUNGIN 200 MG in SODIUM CHLORIDE 0.9% 200 ML IVPB ONE (22:00)
--- NOTE | 2018-01-24 22:45 | HP ---
HISTORY AND PHYSICAL DATE OF ADMISSION: 01/24/2018 DATE OF SERVICE: 01/24/2018. PRESENTING COMPLAINT: Weak, tired, nausea and vomiting. HISTORY OF PRESENTING COMPLAINT: This is a very pleasant 72-year-old patient who was discharged from the hospital 01/09/2018. The patient on last admission underwent coronary bypass, followed by ischemic bowel and a resultant ostomy and wound VAC in place. By the time patient left the hospital, the patient is tolerating a diet. Colostomy bag is working well. The patient went to inpatient rehab about a week ago. Patient was walking across the room. The patient stayed over last few days. The patient's appetite went down, the food was not tasting good. The patient was discharged on IV ceftriaxone and Flagyl that she completed a course. The patient started off with some nausea and vomiting for last 2 days. Denies any abdominal pain. There was no fever, though patient's white count came up. When patient had left from here her white count was 18.3. Today it was 26.7, hemoglobin was 7.6 when she left, up to 9.4 today. The patient's platelets was 760 up to 928 today. BUN and creatinine is normal. The patient did have a CT scan of the abdomen and pelvis that showed some left pleural effusion and there is also 12 x 6 cm loculated fluid collection in the inferior right lobe of the liver extending into right paracolic gutter. There is also some fluid collection in the pelvis. Numerous diverticula were noted in the sigmoid colon. The patient for last 2 3 days is pretty much sitting up in a chair, feels really tired, run down, like stated there was no fever and chills. REVIEW OF SYSTEMS: CONSTITUTIONAL: Tired. HEENT none. RESPIRATORY: Minimal short of breath. CARDIOVASCULAR: No chest pain. GASTROINTESTINAL: As above. GENITOURINARY none. MUSCULOSKELETAL: None. DERMATOLOGICAL and HEMATOLOGIC, LYMPHATIC: None. PSYCHIATRY none. NEUROLOGICAL: Generalized weakness. PAST MEDICAL HISTORY: Coronary artery disease with bypass, acute ischemic bowel with perforation, paroxysmal atrial fibrillation, peripheral artery disease, hypothyroid, diabetes type 2, chronic low back pain from arthritis, depression, hyperlipidemia, hypertension. PAST SURGICAL HISTORY: Coronary artery bypass on December 11, 2017, acute ischemic bowel leading to perforation, right transverse colectomy and resulting in ileostomy, appendectomy, breast surgery, cholecystectomy, bilateral knee replacement, right rotator cuff surgery, left breast surgery for benign tumor, epidural to the lower back. PSYCH HISTORY: Anxiety and depression. SOCIAL HISTORY: Currently at [facility]. No alcohol use. The patient smoked for 43 years, stopped earlier this year. . FAMILY HISTORY: Uterine cancer. HOME MEDICATIONS: 1. Oxycodone 20 mg q.8. 2. Potassium 20 mEq a day. 3. Protonix 40 mg breakfast. 4. Lopressor 25 mg q.12. 5. Cozaar 25 mg a day. 6. Synthroid 75 mcg daily. 7. DuoNeb q.i.d. plus p.r.n. 8. Lasix 40 mg b.i.d. 9. Vitamin D2 50,000 units on Tuesdays. 10.Cymbalta 60 mg a day. 11.Vitamin B12 100 mcg a day. 12.Tums 500 mg p.o. q.i.d. p.r.n. 13.Lipitor 40 mg q.h.s. 14.Aspirin 81 mg p.o. daily. 15.Vitamin C 500 mg a day. 16.Eliquis 5 mg b.i.d. 17.Cordarone 100 mg a day. 18.ProStat 30 mL p.o. b.i.d. ALLERGIES: None. PHYSICAL EXAMINATION: VITAL SIGNS: Temperature 98.4, pulse 82, respirations 17, blood pressure 120/63, pulse ox 95 percent on room air. GENERAL APPEARANCE: Average build, lying in bed, awake. EYES: Pupils equal. Conjunctivae pale. HEENT: External appearance of nose and ears normal. Oral cavity normal. NECK: JVD not raised. Mass not palpable. RESPIRATORY: Effort increased. LUNGS: Diminished breath sounds. CARDIOVASCULAR: 1st and 2nd sounds normal. Mild edema. ABDOMEN: Minimal tenderness. Wound VAC in place. Ileostomy bag with liquid stool. LYMPHATICS: No lymph nodes palpable in neck or axillae. PSYCHIATRY: Alert and oriented x3. Mood and affect normal. NEUROLOGICAL: Pupils equal. Cranial nerves grossly intact. Power and sensation grossly intact. INVESTIGATIONS: White count 26.7, hemoglobin 9.4, platelets 328, potassium 4.1, BUN 20, creatinine 0.56. Lactic acid 2.1, albumin 2.8. CT scan of the abdomen as above with 2 fluid collections, EKG tracing personally reviewed by me shows normal sinus rhythm. ASSESSMENT: 1. This is a patient who presents with some nausea, vomiting, poor appetite, and elevated white count. Patient does inform me that the white count has been up for last 2 years, but the white count has gone up more compared to what she had left. There is no fever. Abdominal examination is relatively benign with no tenderness. No guarding or rigidity. 2. Coronary artery disease status post coronary bypass in December 11, 2017. 3. Recent ischemic bowel with perforation, right transverse colectomy takedown consulting ileostomy. 4. Abdominal wound VAC in place. 5. Paroxysmal atrial fibrillation currently in sinus rhythm. The patient is on Eliquis. 6. Peripheral artery disease. 7. Hypothyroid. 8. Diabetes mellitus type 2. 9. Chronic low back pain from arthritis. 10.Depression, not otherwise specified. 11.Hyperlipidemia. 12.Hypoalbuminemia probably mild protein-calorie malnutrition from decreased oral intake. 13.Left pleural effusion, postsurgical. 14.Essential hypertension. PLAN: The patient is empirically started on antibiotics in the ER. Dr. Mccartney was consulted, will further coordinate. Home medications are resumed. Dr. Montoya from General surgery was consulted, who advanced the patient to full liquid diet. We will also have cardiothoracic look at the patient. PT/OT will be consulted. Copy to Dr. Alcala. MMODL / IJN: [id number] /
[2018-01-25] MEDS: MEROPENEM 2 GM in SODIUM CHLORIDE 0.9% 100 ML IVPB SCH ×4 (01:22→23:00)
[2018-01-25] MEDS: LEVOTHYROXINE 75 MCG TAB PO SCH (05:35)
[2018-01-25] MEDS: IPRATROPIUM-ALBUTEROL 3 ML NEB INHALATION SCH ×4 (07:25→19:43)
[2018-01-25 07:57] LABS: Anisocytosis Slight; Basophils # (A) 0.2 k/uL (0-0.2); Basophils % (A) 1 %; Eosinophils # (A) 0.3 k/uL (0-0.7); Eosinophils % (A) 1 %; HCT 29.1 % (34.0-46.0); HGB 8.7 gm/dL (11.4-16.0); Hypochromasia Marked; Lymphocytes # (A) 1.1 k/uL (1.0-4.8); Lymphocytes % (A) 5 %; MCH 25.2 pg (25.0-35.0); MCV 84.1 fL (80.0-100.0); Mean Platelet Volume 6.1; Monocytes % (A) 5 %; Neutrophils # (A) 18.5 k/uL (1.3-7.7); Neutrophils % (A) 87 %; Platelet Count 846 k/uL (150-450); Poikilocytosis Slight; RBC 3.45 m/uL (3.80-5.40); RDW 16.1 % (11.5-15.5); WBC 21.4 k/uL (3.8-10.6)
[2018-01-25 08:06] LABS: ALT 20 U/L (9-52); AST 26 U/L (14-36); Albumin 2.5 g/dL (3.5-5.0); Alkaline Phosphatase 392 U/L (38-126); Anion Gap 10 mmol/L; Blood Urea Nitrogen 13 mg/dL (7-17); Calcium 8.4 mg/dL (8.4-10.2); Carbon Dioxide 21 mmol/L (22-30); Chloride 102 mmol/L (98-107); Glucose 106 mg/dL (74-99); Potassium 3.6 mmol/L (3.5-5.1); Sodium 133 mmol/L (137-145); Total Bilirubin 0.3 mg/dL (0.2-1.3); Total Protein 5.7 g/dL (6.3-8.2)
[2018-01-25] MEDS: DULoxetine HCL 60 MG CAPSULE.DR PO SCH (08:25)
[2018-01-25] MEDS: FUROSEMIDE 40 MG TAB PO SCH ×2 (08:25→15:37)
[2018-01-25] MEDS: METOPROLOL TARTRATE 25 MG TAB PO SCH ×2 (08:25→22:26)
[2018-01-25] MEDS: ASPIRIN 81 MG PO SCH (08:25)
[2018-01-25] MEDS: APIXABAN 5 MG TAB PO SCH (08:26)
[2018-01-25] MEDS: ASCORBIC ACID 500 MG TAB PO SCH (08:26)
[2018-01-25] MEDS: POTASSIUM CHLORIDE ER 20 MEQ TAB.ER PO SCH (08:26)
[2018-01-25] MEDS: LOSARTAN 25 MG TAB PO SCH (08:26)
[2018-01-25] MEDS: CYANOCOBALAMIN 500 MCG TAB PO SCH (08:26)
[2018-01-25] MEDS: AMIODARONE 100 MG TAB PO SCH (08:26)
[2018-01-25] MEDS: PANTOPRAZOLE 40 MG TABLET PO SCH (08:26)
--- NOTE | 2018-01-25 12:30 | P.PN ---
Subjective Progress Note Date: 01/25/18 72.-year-old female being seen at the bedside this morning spouse at bedside spouse patient is scheduled today by interventional radiology for abdominal fluid drainage tube to be placed computed tomography scan of the abdomen pelvis obtained on admission revealed 12 x 6 centimeter fluid collection. The white count this morning 21.4 on admission 26.7 afebrile. at The time of the exam this morning patient is awake and alert states feels hungry patients being followed by medicine as well as infectious disease and cardiovascular Wound VAC in place a moderate amount of stool noted in the ostomy. Abdomen nontender and nondistended no reports of nausea vomiting currently denying abdominal pain when questioning Objective - Vital Signs Vital signs: Vital Signs Temp 98.6 F 01/25/18 10:09 Pulse 83 01/25/18 10:09 Resp 18 01/25/18 10:09 BP 106/71 01/25/18 10:09 Pulse Ox 98 01/25/18 07:00 Intake & Output 01/24/18 01/25/18 01/25/18 18:59 06:59 18:59 Intake Total 925 Output Total 600 Balance 325 Weight 76.204 kg 76.204 kg Intake: Oral 925 Output: Stool 600 Other: # Voids 2 - Exam Physical exam Pleasant 72-year-old female resting in bed more awake more alert states "I actually feel better and hungry Lungs diminished at the bases otherwise adequate air movement no wheezing on room air Heart S1-S2 audible regular Abdomen soft nontender with active bowel tones no nausea no vomiting wound VAC to surgical site intact. Ostomy moderate amount of liquid brown stool in the bag Extremities no edema to the bilateral lower extremities - Labs CBC & Chem 7: 01/25/18 07:44 01/25/18 07:44 Labs: Abnormal Lab Results - Last 24 Hours (Table) 01/24/18 01/24/18 01/24/18 Range/Units 12:07 12:07 12:07 WBC 26.7 H (3.8-10.6) k/uL RBC 3.74 L (3.80-5.40) m/uL Hgb 9.4 L D (11.4-16.0) gm/dL Hct 30.2 L (34.0-46.0) % MCHC (31.0-37.0) g/dL RDW 16.3 H (11.5-15.5) % Plt Count 928 H (150-450) k/uL Neutrophils # 23.9 H (1.3-7.7) k/uL Sodium 130 L (137-145) mmol/L Chloride 95 L (98-107) mmol/L Carbon Dioxide (22-30) mmol/L BUN 20 H (7-17) mg/dL Creatinine (0.52-1.04) mg/dL Glucose 152 H (74-99) mg/dL Plasma Lactic Acid Frederick (0.7-2.0) mmol/L Alkaline Phosphatase 475 H (38-126) U/L Total Creatine Kinase <20 L (30-135) U/L Total Protein 6.1 L (6.3-8.2) g/dL Albumin 2.8 L (3.5-5.0) g/dL Ur Leukocyte Esterase (Negative) Urine Bacteria (None) /hpf 01/24/18 01/24/18 01/25/18 Range/Units 12:07 12:38 07:44 WBC 21.4 H (3.8-10.6) k/uL RBC 3.45 L (3.80-5.40) m/uL Hgb 8.7 L (11.4-16.0) gm/dL Hct 29.1 L (34.0-46.0) % MCHC 30.0 L (31.0-37.0) g/dL RDW 16.1 H (11.5-15.5) % Plt Count 846 H (150-450) k/uL Neutrophils # 18.5 H (1.3-7.7) k/uL Sodium (137-145) mmol/L Chloride (98-107) mmol/L Carbon Dioxide (22-30) mmol/L BUN (7-17) mg/dL Creatinine (0.52-1.04) mg/dL Glucose (74-99) mg/dL Plasma Lactic Acid Frederick 2.1 H* (0.7-2.0) mmol/L Alkaline Phosphatase (38-126) U/L Total Creatine Kinase (30-135) U/L Total Protein (6.3-8.2) g/dL Albumin (3.5-5.0) g/dL Ur Leukocyte Esterase Small H (Negative) Urine Bacteria Few H (None) /hpf 01/25/18 Range/Units 07:44 WBC (3.8-10.6) k/uL RBC (3.80-5.40) m/uL Hgb (11.4-16.0) gm/dL Hct (34.0-46.0) % MCHC (31.0-37.0) g/dL RDW (11.5-15.5) % Plt Count (150-450) k/uL Neutrophils # (1.3-7.7) k/uL Sodium 133 L (137-145) mmol/L Chloride (98-107) mmol/L Carbon Dioxide 21 L (22-30) mmol/L BUN (7-17) mg/dL Creatinine 0.50 L (0.52-1.04) mg/dL Glucose 106 H (74-99) mg/dL Plasma Lactic Acid Frederick (0.7-2.0) mmol/L Alkaline Phosphatase 392 H (38-126) U/L Total Creatine Kinase (30-135) U/L Total Protein 5.7 L (6.3-8.2) g/dL Albumin 2.5 L (3.5-5.0) g/dL Ur Leukocyte Esterase (Negative) Urine Bacteria (None) /hpf Assessment and Plan Assessment: Impression Present on admission generalized weakness loss of appetite vomiting unintentional weight loss 20 pounds unclear etiology Present on admission leukocytosis 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 coronary artery disease involving the left main coronary artery Preserved left ventricular function paroxysmal atrial fibrillation EKG on admission sinus rhythm Recent December 11 quadruple coronary artery bypass grafting Debility Plan Computed tomography scan abdomen pelvis show numerous diverticuli in the sigmoid colon with ostomy at the sigmoid colon no free air Computed tomography scan abdomen pelvis on admission review report 12 x 6 cm elongated fluid collection inferior right lobe of the liver Interventional radiology to place a drainage tube for the abdominal fluid today Continue the wound VAC to surgical site Further surgical recommendations pending CAT scan results Defer to medicine to address medical issues DVT and GI prophylaxis Will follow with you Continue recommendations by infectious disease PT OT No evidence of acute surgical abdomen at this time The above impression and plan of care have been discussed and directed by signing physician. Missy Baca nurse practitioner acting as scribe for signing physician.
--- NOTE | 2018-01-25 12:52 | P.GSCN ---
History of Present Illness Consult date: 01/25/18 Reason for Consult: Recent open heart, patient known to us. Requesting physician: Parveen Dietz History of present illness: This is a 72-year-old female patient follows with Dr. Alcala on an outpatient basis. She has a previous medical history of coronary artery disease with left main disease status post urgent triple coronary artery bypass grafting on 2017 with postoperative complications of acute blood loss anemia, pneumoperitoneum, necrosis of the transverse colon, right colon, septic shock, prolonged mechanical ventilation, left-sided pleural effusion, and separation of her ileostomy stoma. She also has a history of paroxysmal atrial fibrillation, hypertension, hyperlipidemia, diabetes mellitus, hypothyroid, peripheral vascular disease status post right fem-pop bypass, previous tobacco dependence, chest granulomatosis disease, syncopal episodes, chronic low back pain, and obesity. Upon discharge after open heart surgery she was taken to [facility] subacute rehab with a wound VAC and colostomy in place and had been progressing fairly well. Monday she began to experience nausea and vomiting along with anorexia and weakness. Her white blood cell count was elevated at 26. She was brought to [facility] for evaluation and treatment. A computed tomography scan of the abdomen and pelvis was completed demonstrating residual left pleural effusion, loculated fluid collection in the inferior right lobe of the liver extending into the right paracolic gutter demonstrating chronic abscess. Drs. Montoya and Bib were consulted. The patient was placed on IV antibiotics as well as her discharge medications, and Dr. Olvera from cardiothoracic surgery was consulted as this patient is well- known to us. Review of Systems Review of systems was completed and was negative except as noted. - Constitutional Reports as per HPI, Reports lethargy, Reports weakness - Gastrointestinal Reports as per HPI, Reports nausea, Reports vomiting Past Medical History Past Medical History: Atrial Fibrillation, Coronary Artery Disease (CAD), Diabetes Mellitus, Hyperlipidemia, Hypertension, Osteoarthritis (OA), Thyroid Disorder, Vascular Disorder Additional Past Medical History / Comment(s): Pt. states poor circulation in RLE due to an artificial bypass. past fall, Chronic back pain, bilateral shoulder problems djd has difficulty with rom.past uti-ecoli History of Any Multi-Drug Resistant Organisms: None Reported Past Surgical History: Appendectomy, Breast Surgery, Cholecystectomy, Orthopedic Surgery Additional Past Surgical History / Comment(s): "rt leg sx"artificial artery". Bilateral knee replacements. 2016-rt rotaotr cuff sxLeft breast surgery for benign tumor. Epidurals to lower back. heart cath 12-08-17, quad cabg 12-11-17, colectomy/ileostomy- has abd wound w/ wound vac. picc line since removed. Past Anesthesia/Blood Transfusion Reactions: No Reported Reaction Past Psychological History: Anxiety, Depression Additional Psychological History / Comment(s): pt currently at [facility] since 01-09-18. pt stated at first was able to get up with asssit and walker short distance but for past week has been n/v and to weak to get out of bed. Smoking Status: Former smoker Past Alcohol Use History: Rare Additional Past Alcohol Use History / Comment(s): started smoking 1965 Quit smoking in 2007, smoked 1 PPD . no curent etoh use Past Drug Use History: None Reported - Past Family History Mother Family Medical History: Cancer Additional Family Medical History / Comment(s): Uterine cancer. Medications and Allergies Home Medications Medication Instructions Recorded Confirmed Type DULoxetine HCL [Cymbalta] 60 mg PO DAILY 12/14/16 01/24/18 History Ergocalciferol (Vitamin D2) 50,000 unit PO TU 12/14/16 01/24/18 History [Vitamin D2] Levothyroxine Sodium [Synthroid] 75 mcg PO DAILY 12/14/16 01/24/18 History Cyanocobalamin [Vitamin B-12] 500 mcg PO DAILY 12/04/17 01/24/18 History Amiodarone [Cordarone] 100 mg PO DAILY tab 01/09/18 01/24/18 Rx Apixaban [Eliquis] 5 mg PO BID tab 01/09/18 01/24/18 Rx Aspirin 81 mg PO DAILY chew 01/09/18 01/24/18 Rx Calcium Carbonate [Tums] 500 mg PO QID PRN chew 01/09/18 01/24/18 Rx Furosemide [Lasix] 40 mg PO BID@0900,1600 tab 01/09/18 01/24/18 Rx Ipratropium-Albuterol Nebulize 3 ml INHALATION RT-Q2H PRN 01/09/18 01/24/18 Rx [Duoneb 0.5 mg-3 mg/3 ml Soln] ampul.neb Ipratropium-Albuterol Nebulize 3 ml INHALATION RT-QID ampul.neb 01/09/18 Rx [Duoneb 0.5 mg-3 mg/3 ml Soln] Metoprolol Tartrate [Lopressor] 25 mg PO Q12HR tab 01/09/18 01/24/18 Rx Pantoprazole [Protonix] 40 mg PO AC-BRKFST tablet. 01/09/18 01/24/18 Rx Potassium Chloride ER [K-Dur 20] 20 meq PO DAILY #7 tab 01/09/18 01/24/18 Rx Amino Acids/Protein Hydrolys 30 ml PO BID 01/24/18 01/24/18 History [Pro-Stat Supplement] Ascorbic Acid [Vitamin C] 500 mg PO DAILY 01/24/18 01/24/18 History Atorvastatin [Lipitor] 40 mg PO HS 01/24/18 01/24/18 History Losartan [Cozaar] 25 mg PO DAILY 01/24/18 01/24/18 History oxyCODONE HCL 20 mg PO Q8H 01/24/18 01/24/18 History Allergies Allergy/AdvReac Type Severity Reaction Status Date / Time No Known Allergies Allergy Verified 01/24/18 14:35 Surgical - Exam Vital Signs Temp Pulse Resp BP Pulse Ox 98.4 F 82 17 124/63 95 01/24/18 11:13 01/24/18 11:13 01/24/18 11:13 01/24/18 11:13 01/24/18 11:13 - General well developed, well nourished, no distress, no pain, chronically ill, obese - Eyes PERRL, normal ocular movement - ENT no hearing loss - Neck no masses, no bruits, trachea midline - Respiratory Lungs sounds diminished bilaterally. Respirations even, nonlabored. Currently on room air with oxygen saturation 99%. Effective cough. - Cardiovascular S1, S2 present. Regular rate and rhythm. Sternum stable. Palpable peripheral pulses bilaterally. No edema present. No calf pain or tenderness noted. - Abdomen Colostomy present with positive brown liquid. Abdomen: soft, non tender, bowel sounds, wound - Genitourinary Adult brief present, patient is incontinent of urine. - Rectum Deferred - Integumentary Anterior chest incision well approximated. Mid abdominal incisions open superiorly and inferiorly with middle part of the incision well approximated. no rash, no growths - Neurologic normal coordination, normal sensation - Psychiatric oriented to time, oriented to person, oriented to place, speech is normal, memory intact Results - Labs 01/25/18 07:44 01/25/18 07:44 Abnormal Lab Results - Last 24 Hours (Table) 01/24/18 01/24/18 01/24/18 Range/Units 12:07 12:07 12:07 WBC (3.8-10.6) k/uL RBC (3.80-5.40) m/uL Hgb (11.4-16.0) gm/dL Hct (34.0-46.0) % MCHC (31.0-37.0) g/dL RDW (11.5-15.5) % Plt Count (150-450) k/uL Neutrophils # (1.3-7.7) k/uL Sodium 130 L (137-145) mmol/L Chloride 95 L (98-107) mmol/L Carbon Dioxide (22-30) mmol/L BUN 20 H (7-17) mg/dL Creatinine (0.52-1.04) mg/dL Glucose 152 H (74-99) mg/dL Plasma Lactic Acid Frederick 2.1 H* (0.7-2.0) mmol/L Alkaline Phosphatase 475 H (38-126) U/L Total Creatine Kinase <20 L (30-135) U/L Total Protein 6.1 L (6.3-8.2) g/dL Albumin 2.8 L (3.5-5.0) g/dL Ur Leukocyte Esterase (Negative) Urine Bacteria (None) /hpf 01/24/18 01/25/18 01/25/18 Range/Units 12:38 07:44 07:44 WBC 21.4 H (3.8-10.6) k/uL RBC 3.45 L (3.80-5.40) m/uL Hgb 8.7 L (11.4-16.0) gm/dL Hct 29.1 L (34.0-46.0) % MCHC 30.0 L (31.0-37.0) g/dL RDW 16.1 H (11.5-15.5) % Plt Count 846 H (150-450) k/uL Neutrophils # 18.5 H (1.3-7.7) k/uL Sodium 133 L (137-145) mmol/L Chloride (98-107) mmol/L Carbon Dioxide 21 L (22-30) mmol/L BUN (7-17) mg/dL Creatinine 0.50 L (0.52-1.04) mg/dL Glucose 106 H (74-99) mg/dL Plasma Lactic Acid Frederick (0.7-2.0) mmol/L Alkaline Phosphatase 392 H (38-126) U/L Total Creatine Kinase (30-135) U/L Total Protein 5.7 L (6.3-8.2) g/dL Albumin 2.5 L (3.5-5.0) g/dL Ur Leukocyte Esterase Small H (Negative) Urine Bacteria Few H (None) /hpf Diabetes panel 01/24/18 01/25/18 Range/Units 12:07 07:44 Sodium 130 L 133 L (137-145) mmol/L Potassium 4.1 3.6 (3.5-5.1) mmol/L Chloride 95 L 102 (98-107) mmol/L Carbon Dioxide 22 21 L (22-30) mmol/L BUN 20 H 13 (7-17) mg/dL Creatinine 0.56 0.50 L (0.52-1.04) mg/dL Glucose 152 H 106 H (74-99) mg/dL Calcium 9.1 8.4 (8.4-10.2) mg/dL AST 25 26 (14-36) U/L ALT 18 20 (9-52) U/L Alkaline Phosphatase 475 H 392 H (38-126) U/L Total Protein 6.1 L 5.7 L (6.3-8.2) g/dL Albumin 2.8 L 2.5 L (3.5-5.0) g/dL Calcium panel 01/24/18 01/25/18 Range/Units 12:07 07:44 Calcium 9.1 8.4 (8.4-10.2) mg/dL Albumin 2.8 L 2.5 L (3.5-5.0) g/dL Pituitary panel 01/24/18 01/25/18 Range/Units 12:07 07:44 Sodium 130 L 133 L (137-145) mmol/L Potassium 4.1 3.6 (3.5-5.1) mmol/L Chloride 95 L 102 (98-107) mmol/L Carbon Dioxide 22 21 L (22-30) mmol/L BUN 20 H 13 (7-17) mg/dL Creatinine 0.56 0.50 L (0.52-1.04) mg/dL Glucose 152 H 106 H (74-99) mg/dL Calcium 9.1 8.4 (8.4-10.2) mg/dL Adrenal panel 01/24/18 01/25/18 Range/Units 12:07 07:44 Sodium 130 L 133 L (137-145) mmol/L Potassium 4.1 3.6 (3.5-5.1) mmol/L Chloride 95 L 102 (98-107) mmol/L Carbon Dioxide 22 21 L (22-30) mmol/L BUN 20 H 13 (7-17) mg/dL Creatinine 0.56 0.50 L (0.52-1.04) mg/dL Glucose 152 H 106 H (74-99) mg/dL Calcium 9.1 8.4 (8.4-10.2) mg/dL Total Bilirubin 0.3 0.3 (0.2-1.3) mg/dL AST 25 26 (14-36) U/L ALT 18 20 (9-52) U/L Alkaline Phosphatase 475 H 392 H (38-126) U/L Total Protein 6.1 L 5.7 L (6.3-8.2) g/dL Albumin 2.8 L 2.5 L (3.5-5.0) g/dL - Imaging CT scan - abdomen: report reviewed, image reviewed EKG: image reviewed Assessment and Plan (1) Acute vomiting Current Visit: Yes Status: Acute Code(s): R11.10 - VOMITING, UNSPECIFIED SNOMED Code(s): 25110651 (2) Appetite loss Current Visit: Yes Status: Acute Code(s): R63.0 - ANOREXIA SNOMED Code(s) : 17870173 (3) Generalized weakness Current Visit: Yes Status: Acute Code(s): R53.1 - WEAKNESS SNOMED Code(s) : 87936567 (4) Leukocytosis Current Visit: Yes Status: Acute Code(s): D72.829 - ELEVATED WHITE BLOOD CELL COUNT, UNSPECIFIED SNOMED Code(s): 907511994 (5) Ileostomy in place Current Visit: Yes Status: Chronic Code(s): Z93.2 - ILEOSTOMY STATUS SNOMED Code(s): 197112494 (6) Chronic low back pain Current Visit: Yes Status: Chronic Code(s): M54.5 - LOW BACK PAIN; G89.29 - OTHER CHRONIC PAIN SNOMED Code(s): 262107588 (7) Coronary artery disease involving left main coronary artery Current Visit: Yes Status: Chronic Code(s): I25.10 - ATHSCL HEART DISEASE OF [place] CORONARY ARTERY W/O ANG PCTRS SNOMED Code(s): 831699325 (8) Depression Current Visit: Yes Status: Chronic Code(s): F32.9 - MAJOR DEPRESSIVE DISORDER, SINGLE EPISODE, UNSPECIFIED SNOMED Code(s): 63485100 (9) Diabetes Current Visit: Yes Status: Chronic Code(s): E11.9 - TYPE 2 DIABETES MELLITUS WITHOUT COMPLICATIONS SNOMED Code(s): 36006612 (10) Family history of heart disease Current Visit: Yes Status: Chronic Code(s): Z82.49 - FAMILY HX OF ISCHEM HEART DIS AND OTH DIS OF THE CIRC SYS SNOMED Code(s): 102649092 (11) Hyperlipidemia Current Visit: Yes Status: Chronic Code(s): E78.5 - HYPERLIPIDEMIA, UNSPECIFIED SNOMED Code(s): 11831818 (12) Hypertension Current Visit: Yes Status: Chronic Code(s): I10 - ESSENTIAL (PRIMARY) HYPERTENSION SNOMED Code(s): 64604608 (13) Hypothyroid Current Visit: Yes Status: Chronic Code(s): E03.9 - HYPOTHYROIDISM, UNSPECIFIED SNOMED Code(s): 28103244 (14) Peripheral vascular disease Current Visit: Yes Status: Chronic Code(s): I73.9 - PERIPHERAL VASCULAR DISEASE, UNSPECIFIED SNOMED Code(s): 262941535 (15) Syncopal episodes Current Visit: No Status: Resolved Code(s): R55 - SYNCOPE AND COLLAPSE SNOMED Code(s): 529721223 (16) History of atrial fibrillation Current Visit: No Status: Resolved Code(s): Z86.79 - PERSONAL HISTORY OF OTHER DISEASES OF THE CIRCULATORY SYSTEM SNOMED Code(s): 306291507 (17) Tobacco dependence in remission Current Visit: No Status: Resolved Code(s): F17.201 - NICOTINE DEPENDENCE, UNSPECIFIED, IN REMISSION SNOMED Code(s): 314450567 Plan: The patient was seen and examined at the bedside with Dr. Olvera. Chart/ diagnostics were reviewed in detail. From cardiothoracic surgery standpoint we would recommend continuing low-dose aspirin, statin, beta sheree, amiodarone, Lasix, Cozaar. Due to the chronic abscess that she has we will hold Eliquis at this time and ask interventional radiology to percutaneously drain the abscess. This was discussed in detail with Dr. Montoya. Antibiotics per Dr. Mccartney. Encourage oral intake. Encourage increased activity. Incentive spirometer ordered, encourage use 10 times every hour while awake. More recommendations to follow. Thank you Dr. Dietz for this consult. We look forward to working with you in the care of your patient. Time with Patient: Greater than 30
[2018-01-25] MEDS: ANIDULAFUNGIN 100 MG in SODIUM CHLORIDE 0.9% 100 ML IVPB SCH (13:10)
--- NOTE | 2018-01-25 14:52 | P.CONS ---
History of Present Illness - Reason for Consult Consult date: 01/25/18 - History of Present Illness This is a 72-year-old female patient known to ID service as she was seen on her previous admission which time she was admitted for CAD and underwent an urgent CABG 4 vessel on December 11. She subsequently developed ischemic colitisand underwent exploratory laparotomy with evidence of necrosis the transverse colon and of the right colon and consequently colectomy was performed in ileostomy was placed. she had a very slow recovery and was eventually discharged to [facility]. patient was discharged on fluconazole,Flagyl and Rocephin which was completed on January 11. Patient and her gives history that she has Had ongoing problems with generalized weakness the point where she has trouble getting out of bed, decreased appetite and occasional vomiting. She has lost 20 pounds recently. She denies having any fever or chills. She states it is hard for her to find anything she wants to eat but does take Glucerna at the long term. Patient was discharged with a wound VAC which has been continued at [facility]. Patient was sent to [facility] emergency center for evaluation. Her white count was found to be 26.7, afebrile, creatinine 0.56, lactic acid initially 2.1 and repeated 1.9. Alkaline phosphatase 475. Albumin 2.8, urinalysis was clear with small leukoesterase, C. difficile toxin negative. CAT scan of the abdomen and pelvis showed fluid collections in the abdomen and pelvis adjacent to the liver in the right.: Gutter and pelvis above the urinary bladder are smaller when compared to CAT scan of December 30. No new fluid collections. Margins are developed with capsule. Consistent with chronic abscess. Air bubbles at the incision site over the anterior lower abdomen in the subcutaneous fat. Improvement of dehiscence evident from old CAT scan. Stable pleural fluid and atelectasis in the left lower lobe. ID has placed the patient on meropenem and Anidulafungin. Patient has been seen by general surgery and cardiothoracic surgery. She is scheduled with interventional radiology for abdominal fluid drainage tube. Noted that patient is on chronic amiodarone andeliquis for paroxysmal atrial fibrillation. patient states that today is a she actually has an appetite but unfortunately is nothing by mouth for procedure. denies any change in the output from her colostomy. relates that discharge plan will be to [place]. Review of Systems All systems: negative Constitutional: Reports anorexia, Reports fatigue, Reports lethargy, Reports malaise, Reports poor appetite, Reports weakness, Reports weight loss, Denies chills, Denies fever Eyes: denies blurred vision, denies pain Ears, nose, mouth and throat: Denies dental pain, Denies headache, Denies mouth pain, Denies sore throat, Denies vertigo Cardiovascular: Denies chest pain, Denies dyspnea on exertion, Denies edema, Denies leg edema, Denies lightheadedness, Denies shortness of breath, Denies syncope Respiratory: Denies cough, Denies cough with sputum, Denies dyspnea, Denies excessive sputum, Denies hemoptysis, Denies home oxygen, Denies wheezing Gastrointestinal: Reports loss of appetite, Reports nausea, Reports vomiting, Denies abdominal pain, Denies diarrhea, Denies melena Genitourinary: Denies dysuria, Denies hematuria, Denies urgency, Denies urinary frequency Musculoskeletal: Reports gait dysfunction, Denies frequent falls, Denies myalgias Integumentary: Denies pruritus, Denies rash Neurological: Denies numbness, Denies weakness Psychiatric: Denies anxiety, Denies depression Endocrine: Denies fatigue, Denies weight change Past Medical History Past Medical History: Atrial Fibrillation, Coronary Artery Disease (CAD), Diabetes Mellitus, Hyperlipidemia, Hypertension, Osteoarthritis (OA), Thyroid Disorder, Vascular Disorder Additional Past Medical History / Comment(s): Pt. states poor circulation in RLE due to an artificial bypass. past fall, Chronic back pain, bilateral shoulder problems djd has difficulty with rom.past uti-ecoli History of Any Multi-Drug Resistant Organisms: None Reported Past Surgical History: Appendectomy, Breast Surgery, Cholecystectomy, Orthopedic Surgery Additional Past Surgical History / Comment(s): "rt leg sx"artificial artery". Bilateral knee replacements. 2016-rt rotaotr cuff sxLeft breast surgery for benign tumor. Epidurals to lower back. heart cath 12-08-17, quad cabg 12-11-17, colectomy/ileostomy- has abd wound w/ wound vac. picc line since removed. Past Anesthesia/Blood Transfusion Reactions: No Reported Reaction Past Psychological History: Anxiety, Depression Additional Psychological History / Comment(s): pt currently at [facility] since 01-09[facility]18. pt stated at first was able to get up with asist and walker short distance but for past week has been n/v and to weak to get out of bed. Smoking Status: Former smoker Past Alcohol Use History: Rare Additional Past Alcohol Use History / Comment(s): started smoking 1965 Quit smoking in 2007, smoked 1 PPD . no current etoh use Past Drug Use History: None Reported - Past Family History Mother Family Medical History: Cancer Additional Family Medical History / Comment(s): Uterine cancer. Medications and Allergies Home Medications Medication Instructions Recorded Confirmed Type DULoxetine HCL [Cymbalta] 60 mg PO DAILY 12/14/16 01/24/18 History Ergocalciferol (Vitamin D2) 50,000 unit PO TU 12/14/16 01/24/18 History [Vitamin D2] Levothyroxine Sodium [Synthroid] 75 mcg PO DAILY 12/14/16 01/24/18 History Cyanocobalamin [Vitamin B-12] 500 mcg PO DAILY 12/04/17 01/24/18 History Amiodarone [Cordarone] 100 mg PO DAILY tab 01/09/18 01/24/18 Rx Apixaban [Eliquis] 5 mg PO BID tab 01/09/18 01/24/18 Rx Aspirin 81 mg PO DAILY chew 01/09/18 01/24/18 Rx Calcium Carbonate [Tums] 500 mg PO QID PRN chew 01/09/18 01/24/18 Rx Furosemide [Lasix] 40 mg PO BID@0900,1600 tab 01/09/18 01/24/18 Rx Ipratropium-Albuterol Nebulize 3 ml INHALATION RT-Q2H PRN 01/09/18 01/24/18 Rx [Duoneb 0.5 mg-3 mg/3 ml Soln] ampul.neb Ipratropium-Albuterol Nebulize 3 ml INHALATION RT-QID ampul.neb 01/09/18 Rx [Duoneb 0.5 mg-3 mg/3 ml Soln] Metoprolol Tartrate [Lopressor] 25 mg PO Q12HR tab 01/09/18 01/24/18 Rx Pantoprazole [Protonix] 40 mg PO AC-[id number] tablet. 01/09/18 01/24/18 Rx Potassium Chloride ER [K-Dur 20] 20 meq PO DAILY #7 tab 01/09/18 01/24/18 Rx Amino Acids/Protein Hydrolys 30 ml PO BID 01/24/18 01/24/18 History [Pro-Stat Supplement] Ascorbic Acid [Vitamin C] 500 mg PO DAILY 01/24/18 01/24/18 History Atorvastatin [Lipitor] 40 mg PO HS 01/24/18 01/24/18 History Losartan [Cozaar] 25 mg PO DAILY 01/24/18 01/24/18 History oxyCODONE HCL 20 mg PO Q8H 01/24/18 01/24/18 History Allergies Allergy/AdvReac Type Severity Reaction Status Date / Time No Known Allergies Allergy Verified 01/24/18 14:35 Physical Exam Vitals: Vital Signs Temp Pulse Pulse Resp BP BP BP 01/25/18 10:09 98.6 F 83 18 106/71 01/25/18 07:35 76 01/25/18 07:25 74 01/25/18 07:00 98.6 F 83 18 106/71 01/24/18 23:00 98.5 F 83 18 102/65 01/24/18 19:56 78 01/24/18 19:46 80 01/24/18 16:53 80 01/24/18 16:44 78 01/24/18 14:40 98.2 F 84 18 102/70 01/24/18 13:54 83 18 112/59 Pulse Ox 01/25/18 10:09 01/25/18 07:35 01/25/18 07:25 01/25/18 07:00 98 01/24/18 23:00 99 01/24/18 19:56 01/24/18 19:46 01/24/18 16:53 01/24/18 16:44 98 01/24/18 14:40 98 01/24/18 13:54 100 Intake and Output 01/24/18 01/25/18 01/25/18 22:59 06:59 14:59 Intake Total 500 425 Output Total 600 Balance -100 425 Intake: Oral 500 425 Output: Stool 600 Other: # Voids 2 2 Weight 76.204 kg Gen: This is a 72-year-old female. she is supine in bed and appears to be comfortable and in no acute distress. HEENT: Head is atraumatic, normocephalic. Pupils equal, round. Sclerae is anicteric. Mucous members of the mouth are slightly dry. NECK: Supple. No JVD. No lymphadenopathy. No thyromegaly. LUNGS: Clear to auscultation. No wheezes or rhonchi. No intercostal retractions. HEART: Regular rate and rhythm. No murmur. Sternal wound is intact. No significant drainage, erythema.chest wall wound midsternal is healed with no signs of infection. ABDOMEN: ileostomy in place in the right side with brown stool. Bowel sounds are present. Abdominal wound to the left side with dressing in place which was not removed. EXTREMITIES: No pedal edema. Wound and left lower extremity shows no signs of infection. No drainage, significant erythema or edema.dorsalis pedis 1+ bilaterally. NEUROLOGICAL: Patient is awake alert and interactive with no focal neural deficits. \\ - Constitutional General appearance: average body habitus Results Results: Laboratory Results WBC 21.4 k/uL (3.8-10.6) H 01/25/18 07:44 RBC 3.45 m/uL (3.80-5.40) L 01/25/18 07:44 Hgb 8.7 gm/dL (11.4-16.0) L 01/25/18 07:44 Hct 29.1 % (34.0-46.0) L 01/25/18 07:44 MCV 84.1 fL (80.0-100.0) 01/25/18 07:44 MCH 25.2 pg (25.0-35.0) 01/25/18 07:44 MCHC 30.0 g/dL (31.0-37.0) L 01/25/18 07:44 RDW 16.1 % (11.5-15.5) H 01/25/18 07:44 Plt Count 846 k/uL (150-450) H 01/25/18 07:44 Neutrophils % 87 % 01/25/18 07:44 Lymphocytes % 5 % 01/25/18 07:44 Monocytes % 5 % 01/25/18 07:44 Eosinophils % 1 % 01/25/18 07:44 Basophils % 1 % 01/25/18 07:44 Neutrophils # 18.5 k/uL (1.3-7.7) H 01/25/18 07:44 Lymphocytes # 1.1 k/uL (1.0-4.8) 01/25/18 07:44 Monocytes # 1.0 k/uL (0-1.0) 01/25/18 07:44 Eosinophils # 0.3 k/uL (0-0.7) 01/25/18 07:44 Basophils # 0.2 k/uL (0-0.2) 01/25/18 07:44 Hypochromasia Marked 01/25/18 07:44 Poikilocytosis Slight 01/25/18 07:44 Anisocytosis Slight 01/25/18 07:44 PT 10.9 sec (9.0-12.0) 01/24/18 12:07 INR 1.1 (<1.2) 01/24/18 12:07 APTT 29.2 sec (22.0-30.0) 01/24/18 12:07 Sodium 133 mmol/L (137-145) L 01/25/18 07:44 Potassium 3.6 mmol/L (3.5-5.1) 01/25/18 07:44 Chloride 102 mmol/L (98-107) 01/25/18 07:44 Carbon Dioxide 21 mmol/L (22-30) L 01/25/18 07:44 Anion Gap 10 mmol/L 01/25/18 07:44 BUN 13 mg/dL (7-17) 01/25/18 07:44 Creatinine 0.50 mg/dL (0.52-1.04) L 01/25/18 07:44 Est GFR (CKD-EPI)AfAm >90 (>60 ml/min/1.73 sqM) 01/25/18 07:44 Est GFR (CKD-EPI)NonAf >90 (>60 ml/min/1.73 sqM) 01/25/18 07:44 Glucose 106 mg/dL (74-99) H 01/25/18 07:44 Lactic Ac Sepsis Rflx Y 01/24/18 12:40 Plasma Lactic Acid Frederick 1.9 mmol/L (0.7-2.0) 01/24/18 16:02 Calcium 8.4 mg/dL (8.4-10.2) 01/25/18 07:44 Magnesium 1.7 mg/dL (1.6-2.3) 01/24/18 12:07 Total Bilirubin 0.3 mg/dL (0.2-1.3) 01/25/18 07:44 AST 26 U/L (14-36) 01/25/18 07:44 ALT 20 U/L (9-52) 01/25/18 07:44 Alkaline Phosphatase 392 U/L (38-126) H 01/25/18 07:44 Total Creatine Kinase <20 U/L (30-135) L 01/24/18 12:07 CK-MB (CK-2) 0.3 ng/mL (0.0-2.4) 01/24/18 12:07 CK-MB (CK-2) Rel Index 01/24/18 12:07 Troponin I <0.012 ng/mL (0.000-0.034) 01/24/18 12:07 Total Protein 5.7 g/dL (6.3-8.2) L 01/25/18 07:44 Albumin 2.5 g/dL (3.5-5.0) L 01/25/18 07:44 Urine Color Yellow 01/24/18 12:38 Urine Appearance Clear (Clear) 01/24/18 12:38 Urine pH 5.5 (5.0-8.0) 01/24/18 12:38 Ur Specific [facility] 1.009 (1.001-1.035) 01/24/18 12:38 Urine Protein Negative (Negative) 01/24/18 12:38 Urine Glucose (UA) Negative (Negative) 01/24/18 12:38 Urine Ketones Negative (Negative) 01/24/18 12:38 Urine Blood Negative (Negative) 01/24/18 12:38 Urine Nitrite Negative (Negative) 01/24/18 12:38 Urine Bilirubin Negative (Negative) 01/24/18 12:38 Urine Urobilinogen <2.0 mg/dL (<2.0) 01/24/18 12:38 Ur Leukocyte Esterase Small (Negative) H 01/24/18 12:38 Urine WBC 3 /hpf (0-5) 01/24/18 12:38 Ur Squamous Epith Cells <1 /hpf (0-4) 01/24/18 12:38 Urine Bacteria Few /hpf (None) H 01/24/18 12:38 C. difficile (EIA) Intrp Negative (Negative) 01/24/18 15:55 CBC & Chem 7: 01/25/18 07:44 01/25/18 07:44 Labs: Abnormal Lab Results - Last 24 Hours (Table) 01/24/18 01/24/18 01/24/18 Range/Units 12:07 12:07 12:07 WBC (3.8-10.6) k/uL RBC (3.80-5.40) m/uL Hgb (11.4-16.0) gm/dL Hct (34.0-46.0) % MCHC (31.0-37.0) g/dL RDW (11.5-15.5) % Plt Count (150-450) k/uL Neutrophils # (1.3-7.7) k/uL Sodium 130 L (137-145) mmol/L Chloride 95 L (98-107) mmol/L Carbon Dioxide (22-30) mmol/L BUN 20 H (7-17) mg/dL Creatinine (0.52-1.04) mg/dL Glucose 152 H (74-99) mg/dL Plasma Lactic Acid Frederick 2.1 H* (0.7-2.0) mmol/L Alkaline Phosphatase 475 H (38-126) U/L Total Creatine Kinase <20 L (30-135) U/L Total Protein 6.1 L (6.3-8.2) g/dL Albumin 2.8 L (3.5-5.0) g/dL Ur Leukocyte Esterase (Negative) Urine Bacteria (None) /hpf 01/24/18 01/25/18 01/25/18 Range/Units 12:38 07:44 07:44 WBC 21.4 H (3.8-10.6) k/uL RBC 3.45 L (3.80-5.40) m/uL Hgb 8.7 L (11.4-16.0) gm/dL Hct 29.1 L (34.0-46.0) % MCHC 30.0 L (31.0-37.0) g/dL RDW 16.1 H (11.5-15.5) % Plt Count 846 H (150-450) k/uL Neutrophils # 18.5 H (1.3-7.7) k/uL Sodium 133 L (137-145) mmol/L Chloride (98-107) mmol/L Carbon Dioxide 21 L (22-30) mmol/L BUN (7-17) mg/dL Creatinine 0.50 L (0.52-1.04) mg/dL Glucose 106 H (74-99) mg/dL Plasma Lactic Acid Frederick (0.7-2.0) mmol/L Alkaline Phosphatase 392 H (38-126) U/L Total Creatine Kinase (30-135) U/L Total Protein 5.7 L (6.3-8.2) g/dL Albumin 2.5 L (3.5-5.0) g/dL Ur Leukocyte Esterase Small H (Negative) Urine Bacteria Few H (None) /hpf Assessment and Plan Plan: This is a 72-year-old female patient who presents for hospitalwith chronic abscess in the abdomen. [facility] is currently on hold interventional radiology is been consulted for percutaneous drainage of the abscess. Antimicrobials have been changed to meropenem and Anidulafungin. Wound vac will be addressed. Continue supportive care. Further recommendations as patient progresses. The above dictated assessment and findings were discussed with Dr. Mccartney. The impression and plan of care have been directed as dictated. Amna Obrien nurse practitioner acting as scribe for Dr. Mccartney.
--- NOTE | 2018-01-25 15:28 | US ---
ULTRASOUND GUIDED ABDOMINAL ABSCESS DRAINAGE CATHETER INSERTION : CLINICAL HISTORY: Request for right upper quadrant abscess catheter insertion FINDINGS: The procedure was explained to the patient. The risks, complications, benefits and alternatives were discussed and any questions were answered. Informed consent was obtained. Patient was placed supin e on the ultrasound table and prepped and draped in the usual sterile fashion. Utilizing a 21 gauge needle, access in the right upper quadrant fluid collection was easily achieved. There is placement o f an O.035 guidewire and serial dilation to the 8 Cam[place] with placement of an [address] within the collection. Repeat imaging demonstrated ideal placement. Sample sent to pathology for analysis. Patient was stable throughout the procedure. Pathology is pending. All elements of maximal barrier and sterile technique were utilized. IMPRESSION: 1. Successful ultrasound guided right abdominal abscess drainage catheter insertion.
[2018-01-25 17:10] LABS: Appearance,BF Cloudy; Color,BF Brown; Nucleated Cells, Body Fluid 530500 /uL
[2018-01-25 17:12] LABS: RBC, Body Fluid 0 /uL
[2018-01-25 17:13] LABS: Mononuclear WBC,Body Fluid 3 %; Polynuclear WBC,Body Fluid 97 %; Total Cells Counted,Body Fluid 100
[2018-01-25 22:05] LABS: Total Protein, Body Fluid 3100 mg/dL
[2018-01-25] MEDS: ATORVASTATIN 40 MG TAB PO SCH (22:26)
--- NOTE | 2018-01-25 22:51 | P.CON ---
Consult Note - . Consult date: 01/25/18 Assessment/Plan:: This is a 72-year-old female patient known to ID service as she was seen on her previous admission which time she was admitted for CAD and underwent an urgent CABG 4 vessel on December 11. She subsequently developed ischemic colitisand underwent exploratory laparotomy with evidence of necrosis the transverse colon and of the right colon and consequently colectomy was performed in ileostomy was placed. she had a very slow recovery and was eventually discharged to [facility]. patient was discharged on fluconazole,Flagyl and Rocephin which was completed on January 11. Patient and her gives history that she has Had ongoing problems with generalized weakness the point where she has trouble getting out of bed, decreased appetite and occasional vomiting. She has lost 20 pounds recently. She denies having any fever or chills. She states it is hard for her to find anything she wants to eat but does take Glucerna at the long term. Patient was discharged with a wound VAC which has been continued at [facility]. Patient was sent to [facility] emergency center for evaluation. Her white count was found to be 26.7, afebrile, creatinine 0.56, lactic acid initially 2.1 and repeated 1.9. Alkaline phosphatase 475. Albumin 2.8, urinalysis was clear with small leukoesterase, C. difficile toxin negative. CAT scan of the abdomen and pelvis showed fluid collections in the abdomen and pelvis adjacent to the liver in the right.: Gutter and pelvis above the urinary bladder are smaller when compared to CAT scan of December 30. No new fluid collections. Margins are developed with capsule. Consistent with chronic abscess. Air bubbles at the incision site over the anterior lower abdomen in the subcutaneous fat. Improvement of dehiscence evident from old CAT scan. Stable pleural fluid and atelectasis in the left lower lobe. ID has placed the patient on meropenem and Anidulafungin. Patient has been seen by general surgery and cardiothoracic surgery. She is scheduled with interventional radiology for abdominal fluid drainage tube. Noted that patient is on chronic amiodarone and eliquis for paroxysmal atrial fibrillation. patient states that today is a she actually has an appetite but unfortunately is nothing by mouth for procedure. denies any change in the output from her colostomy. relates that discharge plan will be to [facility]. Please see the consult note is dictated by nurse practitioner Mrs. Amna Obrien. It is noted the patient had significant increasing abdominal pain and computed tomography scan showed evidence of increasing fluid collections intra- abdominally. Will have percutaneous drainage of this abscess area today. Interventional radiology. Antimicrobial therapy with Merrem and Eraxis is restarted at this time. Continue ongoing supportive care. Local wound care for now will be saline dressing to the abdominal ulcerations while this workup is in process. May consider restarting the wound VAC during this stay or may consider transitioning this to a collagen silver product. I agree with evaluation, assessment and plan is dictated by nurse practitioner Mrs. Amna Obrien.
[2018-01-26] MEDS: LEVOTHYROXINE 75 MCG TAB PO SCH (05:41)
[2018-01-26] MEDS: IPRATROPIUM-ALBUTEROL 3 ML NEB INHALATION SCH ×4 (07:26→20:20)
--- NOTE | 2018-01-26 07:41 | XR ---
EXAMINATION TYPE: XR chest 2V DATE OF EXAM: 01/26/2018 COMPARISON: 01/06/2018 INDICATION: Post open heart surgery TECHNIQUE: Frontal and lateral views of the chest are obtained. FINDINGS: The heart size is normal. The pulmonary vasculature is normal. Resolving infiltrate remains at the left base.. Sternotomy wires are present prior cardiac surgery. Degenerative changes are noted at the shoulders b ilaterally. IMPRESSION: 1. Resolving left lower lobe infiltrate. Mild residual remains with some silhouetting the left diaphr agm.
[2018-01-26] MEDS: MEROPENEM 2 GM in SODIUM CHLORIDE 0.9% 100 ML IVPB SCH ×2 (07:58→16:05)
[2018-01-26] MEDS: PANTOPRAZOLE 40 MG TABLET PO SCH (08:00)
[2018-01-26] MEDS: METOPROLOL TARTRATE 25 MG TAB PO SCH ×2 (08:00→21:37)
[2018-01-26] MEDS: AMIODARONE 100 MG TAB PO SCH (08:00)
[2018-01-26] MEDS: DULoxetine HCL 60 MG CAPSULE.DR PO SCH (08:00)
[2018-01-26] MEDS: FUROSEMIDE 40 MG TAB PO SCH ×2 (08:00→16:06)
[2018-01-26] MEDS: ASPIRIN 81 MG PO SCH (08:00)
[2018-01-26] MEDS: ASCORBIC ACID 500 MG TAB PO SCH (08:00)
[2018-01-26] MEDS: POTASSIUM CHLORIDE ER 20 MEQ TAB.ER PO SCH (08:01)
[2018-01-26] MEDS: LOSARTAN 25 MG TAB PO SCH (08:01)
[2018-01-26 08:55] LABS: Anion Gap 10 mmol/L; Anisocytosis Slight; Basophils # (A) 0.1 k/uL (0-0.2); Basophils % (A) 1 %; Blood Urea Nitrogen 8 mg/dL (7-17); Calcium 8.6 mg/dL (8.4-10.2); Carbon Dioxide 26 mmol/L (22-30); Chloride 98 mmol/L (98-107); Eosinophils # (A) 0.3 k/uL (0-0.7); Eosinophils % (A) 2 %; Glucose 110 mg/dL (74-99); HCT 29.1 % (34.0-46.0); HGB 8.8 gm/dL (11.4-16.0); Hypochromasia Marked; Lymphocytes # (A) 1.3 k/uL (1.0-4.8); Lymphocytes % (A) 6 %; MCH 24.7 pg (25.0-35.0); MCHC 30.1 g/dL (31.0-37.0); MCV 81.9 fL (80.0-100.0); Mean Platelet Volume 6.1; Monocytes # (A) 0.8 k/uL (0-1.0); Monocytes % (A) 4 %; Neutrophils # (A) 16.8 k/uL (1.3-7.7); Neutrophils % (A) 86 %; Platelet Count 832 k/uL (150-450); Poikilocytosis Slight; Potassium 3.9 mmol/L (3.5-5.1); RBC 3.55 m/uL (3.80-5.40); RDW 16.1 % (11.5-15.5); Sodium 134 mmol/L (137-145); WBC 19.5 k/uL (3.8-10.6)
[2018-01-26] MEDS: HEPARIN SODIUM,PORCINE 5,000 UNIT/ML 1 ML VIAL SQ SCH ×2 (11:12→16:05)
[2018-01-26] MEDS: ANIDULAFUNGIN 100 MG in SODIUM CHLORIDE 0.9% 100 ML IVPB SCH (11:12)
[2018-01-26] MEDS: CYANOCOBALAMIN 500 MCG TAB PO SCH (11:12)
--- NOTE | 2018-01-26 14:01 | P.PN ---
Subjective Progress Note Date: 01/26/18 Principal diagnosis: Coronary artery disease with left main disease, status post urgent triple coronary artery bypass with postoperative complications of acute blood loss anemia, pneumoperitoneum, necrosis of the transverse colon, right colon, septic shock, prolonged mechanical ventilation, left-sided pleural effusion, and separation of her ileostomy stoma. Additional history of paroxysmal atrial fibrillation, hypertension, hyperlipidemia, diabetes mellitus, hypothyroid, peripheral vascular disease status post right fem-pop bypass, previous tobacco dependence, chest granulomatosis disease, syncopal episodes, chronic low back pain, and obesity. Patient is currently laying in bed in no acute distress. She did have significant nausea this morning but appears to feel better at the present moment. She went yesterday for insertion of chronic abdominal abscess drainage tube, there is currently late brown fluid present in the drainage bag. Hemodynamically she is stable. Objective - Vital Signs Vital signs: Vital Signs Temp 98.1 F 01/26/18 07:47 Pulse 88 01/26/18 11:38 Resp 18 01/26/18 07:47 BP 134/83 01/26/18 07:47 Pulse Ox 98 01/26/18 07:47 Intake & Output 01/25/18 01/26/18 01/26/18 18:59 06:59 18:59 Intake Total 800 400 Balance 800 400 Weight 76.204 kg 80.5 kg Intake: IV 800 Anidulafungin 100 mg In 100 Sodium Chloride 0.9% 100 ml @ 84 mls/hr IVPB DAILY @1200 [facility] Rx#:[id number] Meropenem 2 gm In Sodium 100 Chloride 0.9% 100 ml @ 200 mls/hr IVPB Q8HR [facility] Rx#:[id number] Sodium Chloride 0.9% 1, 600 000 ml @ 75 mls/hr IV . [id number] ONE Rx#:[id number] Oral 400 Other: # Voids 1 - Constitutional General appearance: Present: cooperative, no acute distress, obese - Respiratory Details: Lungs sounds clear bilaterally. Respirations even, nonlabored. Currently on room air with oxygen saturation 95%. Strong cough. - Cardiovascular Details: S1, S2 present. Regular rate and rhythm. Sternum stable. Palpable peripheral pulses bilaterally. No edema present. No calf pain or tenderness noted. - Gastrointestinal Gastrointestinal Comment(s): Abdomen soft, nontender, nondistended. Colostomy present with brown stool. Right upper quadrant drain present, approximately 50 mL light brown milky looking fluid in the bag. - Genitourinary Genitourinary Comment(s): Adult brief present, patient is incontinent of urine. - Integumentary Integumentary Comment(s): Anterior chest incision well approximated. Mid abdominal incisions opened superiorly and inferiorly with middle part of the incision well approximated, covered with dry intact dressing. - Neurologic Neurologic: Present: CNII-XII intact - Musculoskeletal Musculoskeletal: Present: strength equal bilaterally - Psychiatric Psychiatric: Present: A&O x's 3, appropriate affect, intact judgment & insight - Allied health notes Allied health notes reviewed: nursing - Labs CBC & Chem 7: 01/26/18 08:01 01/26/18 08:01 Labs: Abnormal Lab Results - Last 24 Hours (Table) 01/26/18 01/26/18 Range/Units 08:01 08:01 WBC 19.5 H (3.8-10.6) k/uL RBC 3.55 L (3.80-5.40) m/uL Hgb 8.8 L (11.4-16.0) gm/dL Hct 29.1 L (34.0-46.0) % MCH 24.7 L (25.0-35.0) pg MCHC 30.1 L (31.0-37.0) g/dL RDW 16.1 H (11.5-15.5) % Plt Count 832 H (150-450) k/uL Neutrophils # 16.8 H (1.3-7.7) k/uL Sodium 134 L (137-145) mmol/L Glucose 110 H (74-99) mg/dL Microbiology - Last 24 Hours (Table) 01/25/18 15:30 Gram Stain - Preliminary Aspirate Body Fluid Culture - Preliminary - Imaging and Cardiology Chest x-ray: report reviewed, image reviewed Assessment and Plan (1) Acute vomiting Current Visit: Yes Status: Acute Code(s): R11.10 - VOMITING, UNSPECIFIED SNOMED Code(s): 65176946 (2) Appetite loss Current Visit: Yes Status: Acute Code(s): R63.0 - ANOREXIA SNOMED Code(s) : 92498052 (3) Generalized weakness Current Visit: Yes Status: Acute Code(s): R53.1 - WEAKNESS SNOMED Code(s) : 27218579 (4) Leukocytosis Current Visit: Yes Status: Acute Code(s): D72.829 - ELEVATED WHITE BLOOD CELL COUNT, UNSPECIFIED SNOMED Code(s): 420285785 (5) Ileostomy in place Current Visit: Yes Status: Chronic Code(s): Z93.2 - ILEOSTOMY STATUS SNOMED Code(s): 650225309 (6) Chronic low back pain Current Visit: Yes Status: Chronic Code(s): M54.5 - LOW BACK PAIN; G89.29 - OTHER CHRONIC PAIN SNOMED Code(s): 177957698 (7) Coronary artery disease involving left main coronary artery Current Visit: Yes Status: Chronic Code(s): I25.10 - ATHSCL HEART DISEASE OF [place] CORONARY ARTERY W/O ANG PCTRS SNOMED Code(s): 556787509 (8) Depression Current Visit: Yes Status: Chronic Code(s): F32.9 - MAJOR DEPRESSIVE DISORDER, SINGLE EPISODE, UNSPECIFIED SNOMED Code(s): 00341039 (9) Diabetes Current Visit: Yes Status: Chronic Code(s): E11.9 - TYPE 2 DIABETES MELLITUS WITHOUT COMPLICATIONS SNOMED Code(s): 05244844 (10) Family history of heart disease Current Visit: Yes Status: Chronic Code(s): Z82.49 - FAMILY HX OF I[place]HEM HEART DIS AND OTH DIS OF THE CIRC SYS SNOMED Code(s): 685535818 (11) Hyperlipidemia Current Visit: Yes Status: Chronic Code(s): E78.5 - HYPERLIPIDEMIA, UNSPECIFIED SNOMED Code(s): 29170472 (12) Hypertension Current Visit: Yes Status: Chronic Code(s): I10 - ESSENTIAL (PRIMARY) HYPERTENSION SNOMED Code(s): 93680724 (13) Hypothyroid Current Visit: Yes Status: Chronic Code(s): E03.9 - HYPOTHYROIDISM, UNSPECIFIED SNOMED Code(s): 09765622 (14) Peripheral vascular disease Current Visit: Yes Status: Chronic Code(s): I73.9 - PERIPHERAL VASCULAR DISEASE, UNSPECIFIED SNOMED Code(s): 523464059 (15) Syncopal episodes Current Visit: No Status: Resolved Code(s): R55 - SYNCOPE AND COLLAPSE SNOMED Code(s): 979429442 (16) History of atrial fibrillation Current Visit: No Status: Resolved Code(s): Z86.79 - PERSONAL HISTORY OF OTHER DISEASES OF THE CIRCULATORY SYSTEM SNOMED Code(s): 882091001 (17) Tobacco dependence in remission Current Visit: No Status: Resolved Code(s): F17.201 - NICOTINE DEPENDENCE, UNSPECIFIED, IN REMISSION SNOMED Code(s): 450450380 Plan: 1. Continue low-dose aspirin, statin, beta sheree, amiodarone, Lasix, Cozaar. 2. Continue to encourage incentive spirometry use. 3. Encourage increased activity. 4. Antibiotics per Dr. Mccartney. 5. Abdominal incisions, drainage tubes, colostomy management per Dr. Montoya. 6. Medical management per Dr. Dietz. 7. No further cardiothoracic surgery workup needed. May go back to subacute rehab from our standpoint when okay with other consultants. Will continue to see on an as needed basis. Time with Patient: Greater than 30
--- NOTE | 2018-01-26 14:10 | P.PN ---
Subjective Progress Note Date: 01/26/18 72-year-old female seen at the bedside this morning sitting up in a chair states appetite is slowly improving patient is status post 25 of January successful ultrasound guided for a right abdominal abscess catheter insertion. Patient is afebrile and the white count is 19.5 down from 21.5 the day before 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 Recent coronary artery disease involving the left main coronary artery 4 done on 12/11/2017 Objective - Vital Signs Vital signs: Vital Signs Temp 98.1 F 01/26/18 07:47 Pulse 88 01/26/18 11:38 Resp 18 01/26/18 07:47 BP 134/83 01/26/18 07:47 Pulse Ox 98 01/26/18 07:47 Intake & Output 01/25/18 01/26/18 01/26/18 18:59 06:59 18:59 Intake Total 800 400 Balance 800 400 Weight 76.204 kg 80.5 kg Intake: IV 800 Anidulafungin 100 mg In 100 Sodium Chloride 0.9% 100 ml @ 84 mls/hr IVPB DAILY @1200 [facility] Rx#:[id number] Meropenem 2 gm In Sodium 100 Chloride 0.9% 100 ml @ 200 mls/hr IVPB Q8HR [facility] Rx#:[id number] Sodium Chloride 0.9% 1, 600 000 ml @ 75 mls/hr IV . [id number] Rx#:[id number] Oral 400 Other: # Voids 1 - Exam Physical exam Pleasant 72-year-old female hitting up in a chair more awake more alert Lungs diminished at the bases otherwise adequate air movement no wheezing on room air sats 98% no shortness of breath Heart S1-S2 audible regular no murmur noted Abdomen soft nontender with active bowel tones no nausea no vomiting wound VAC to surgical site intact. Ostomy moderate amount of liquid brown stool in the bag catheter right upper quadrant approximately 20 mL noted in the bag creamy colored secretions dressing to the abdomen dry Extremities no edema to the bilateral lower extremities - Labs CBC & Chem 7: 01/26/18 08:01 01/26/18 08:01 Labs: Abnormal Lab Results - Last 24 Hours (Table) 09/28/18 09/28/18 Range/Units 08:01 08:01 WBC 19.5 H (3.8-10.6) k/uL RBC 3.55 L (3.80-5.40) m/uL Hgb 8.8 L (11.4-16.0) gm/dL Hct 29.1 L (34.0-46.0) % MCH 24.7 L (25.0-35.0) pg MCHC 30.1 L (31.0-37.0) g/dL RDW 16.1 H (11.5-15.5) % Plt Count 832 H (150-450) k/uL Neutrophils # 16.8 H (1.3-7.7) k/uL Sodium 134 L (137-145) mmol/L Glucose 110 H (74-99) mg/dL Microbiology - Last 24 Hours (Table) 01/25/18 15:30 Gram Stain - Preliminary Aspirate Body Fluid Culture - Preliminary Assessment and Plan Assessment: Impression Present on admission generalized weakness loss of appetite vomiting unintentional weight loss 20 pounds unclear etiology Present on admission leukocytosis 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 coronary artery disease involving the left main coronary artery Preserved left ventricular function paroxysmal atrial fibrillation EKG on admission sinus rhythm Recent December 11 quadruple coronary artery bypass grafting Debility Status post successful ultrasound-guided right abdominal abscess drainage catheter insertion per interventional radiology Plan Defer to medicine to address medical issues DVT and GI prophylaxis Will follow with you Continue recommendations by infectious disease PT OT No evidence of acute surgical abdomen at this time The above impression and plan of care have been discussed and directed by signing physician. Missy Baca nurse practitioner acting as scribe for signing physician.
[2018-01-26] MEDS: ATORVASTATIN 40 MG TAB PO SCH (21:38)
--- NOTE | 2018-01-26 22:21 | PN ---
PROGRESS NOTE DATE OF SERVICE: 01/26/2018. PRESENTING COMPLAINT: Leukocytosis, intraabdominal abscess. INTERVAL HISTORY: The patient had recent bypass followed by ischemic bowel and ileostomy, now presents with intraabdominal abscess status post drain being placed yesterday. The patient is sitting up on the chair. Some abdominal pain is present. On a liquid diet. Does feel tired. REVIEW OF SYSTEMS: Done for constitutional, cardiovascular, GI, pulmonary; relevant findings as above. CURRENT MEDICATIONS: Reviewed that include IV antifungal, meropenem. PHYSICAL EXAMINATION: Temperature 98.5, pulse 81, respirations 18, blood pressure 102/67, pulse ox 99% on room air. GENERAL APPEARANCE: Sitting up on a chair, tired-appearing. EYES: Pupils equal. Conjunctivae pale. HEENT: External nose and ears normal. Oral cavity normal. NECK: JVD not raised. Mass not palpable. RESPIRATORY: Effort increased. LUNGS: Diminished breath sounds. CARDIOVASCULAR: 1st and 2nd heart sounds normal. No edema. ABDOMEN: Soft. Tenderness present. Wound VAC in place. Ileostomy bag in place. PSYCH: Alert and oriented x3. Mood and affect tired-appearing. INVESTIGATIONS: White count 19.5, hemoglobin 8.8, potassium 3.9. Abdominal fluid showing gram-negative bacilli. ASSESSMENT: 1. Intraabdominal abscess in a patient with recent ischemic bowel and partial colectomy, now with intraabdominal drain in place. 2. Coronary artery disease status post coronary bypass in November of this year. 3. Ischemic bowel with perforation, right transverse colectomy takedown resulting in ileostomy. 4. Abdominal wound VAC. 5. Paroxysmal atrial fibrillation, currently in sinus rhythm, on Eliquis. 6. Peripheral artery disease. 7. Hypothyroidism. 8. Diabetes mellitus type 2. 9. Chronic low back pain from arthritis. 10.Depression, not otherwise specified. 11.Hyperlipidemia. 12.Moderate protein-calorie malnutrition. 13.Left pleural effusion postsurgical. 14.Essential hypertension. PLAN: Continue current medication and treatment plan. Care was discussed with the patient. Will put PT and OT on the case. Await culture. MMODL / IJN: [id number] /
--- NOTE | 2018-01-26 22:36 | PN ---
PROGRESS NOTE DATE OF SERVICE: January 25, 2018. PRESENTING COMPLAINT: Weak, tired. Leukocytosis. INTERVAL HISTORY: This patient was seen by me yesterday. Admitted from the [facility] with nausea, vomiting, increasing fluid collection in the abdomen. Plan is for drainage to be placed. The patient does feel tired, run down. at the bedside. No fever and chills. REVIEW OF SYSTEMS: Done for constitutional, cardiovascular, GI, pulmonary; relevant findings as above. CURRENT MEDICATIONS: Reviewed that include Anidulafungin and IV meropenem. PHYSICAL EXAMINATION: VITAL SIGNS: Temperature 98.6, pulse 83, respiratory 18, blood pressure 106/71. GENERAL APPEARANCE: Lying in bed tired-appearing. EYES: Pupils equal. Conjunctivae pale. HEENT: External appearance of nose and ears normal. Oral cavity normal. NECK JVD not raised. Mass not palpable. RESPIRATORY: Effort increased. LUNGS decreased breath sounds. CARDIOVASCULAR: 1st and 2nd sounds normal. Mild edema. ABDOMEN: Minimal tenderness. Wound VAC in place. Ileostomy bag with liquid stool. PSYCHIATRY: Alert and oriented x3. Mood and affect tired-appearing. INVESTIGATIONS: White count 21.4, hemoglobin 8.7, platelets 846, potassium 3.6, BUN 13, creatinine 0.5, albumin 2.5. ASSESSMENT: 1. This patient presented with increasing leukocytosis, intraabdominal fluid collection, suspected to be abscess pending drainage of the same slow to respond. 2. Coronary artery disease with history of coronary bypass on December 11, 2017. 3. Recent ischemic bowel with perforation, right transverse colectomy takedown resulting in ileostomy. 4. Abdominal wound VAC in place. 5. Paroxysmal atrial fibrillation currently in sinus rhythm on Eliquis. 6. Peripheral artery disease. 7. Hypothyroid. 8. Diabetes mellitus type 2. 9. Chronic low back pain from arthritis. 10.Depression, not otherwise specified. 11.Hyperlipidemia. 12.Hypoalbuminemia from moderate protein-calorie malnutrition from decreased oral intake. 13.Left pleural effusion post surgical. 14.Essential hypertension. PLAN: Continue with current antibiotics, awaiting drain placement. Care was discussed with the patient. Follow. MMODL / IJN: [id number] /
[2018-01-27] MEDS: MEROPENEM 2 GM in SODIUM CHLORIDE 0.9% 100 ML IVPB SCH ×3 (00:27→16:26)
[2018-01-27] MEDS: HEPARIN SODIUM,PORCINE 5,000 UNIT/ML 1 ML VIAL SQ SCH ×3 (00:28→16:26)
[2018-01-27] MEDS: LEVOTHYROXINE 75 MCG TAB PO SCH (05:59)
[2018-01-27] MEDS: IPRATROPIUM-ALBUTEROL 3 ML NEB INHALATION SCH ×4 (07:43→20:32)
[2018-01-27] MEDS: DULoxetine HCL 60 MG CAPSULE.DR PO SCH (09:01)
[2018-01-27] MEDS: LOSARTAN 25 MG TAB PO SCH (09:01)
[2018-01-27] MEDS: METOPROLOL TARTRATE 25 MG TAB PO SCH ×2 (09:01→21:13)
[2018-01-27] MEDS: FUROSEMIDE 40 MG TAB PO SCH ×2 (09:01→16:26)
[2018-01-27] MEDS: CYANOCOBALAMIN 500 MCG TAB PO SCH (09:01)
[2018-01-27] MEDS: POTASSIUM CHLORIDE ER 20 MEQ TAB.ER PO SCH (09:01)
[2018-01-27] MEDS: PANTOPRAZOLE 40 MG TABLET PO SCH (09:02)
[2018-01-27] MEDS: ASPIRIN 81 MG PO SCH (09:02)
[2018-01-27] MEDS: AMIODARONE 100 MG TAB PO SCH (09:02)
[2018-01-27] MEDS: ASCORBIC ACID 500 MG TAB PO SCH (09:02)
[2018-01-27] MEDS: ONDANSETRON 4 MG/2 ML VIAL IVP PRN (09:06)
--- NOTE | 2018-01-27 10:19 | P.PN ---
Subjective Progress Note Date: 01/27/18 Principal diagnosis: Abdominal abscess Patient doing better today. She is tolerating her liquid diet. She is hungry for more to eat. She is afebrile. Drain still with some purulent fluid. Objective - Vital Signs Vital signs: Vital Signs Temp 97.1 F L 01/27/18 06:46 Pulse 82 01/27/18 07:56 Resp 18 01/27/18 06:46 BP 142/65 01/27/18 06:46 Pulse Ox 96 01/27/18 06:46 Intake & Output 01/26/18 01/27/18 01/27/18 18:59 06:59 18:59 Weight 81.5 kg Other: # Voids 3 1 1 - Exam Abdomen: Soft, nondistended, nontender, drain intact - Labs CBC & Chem 7: 01/26/18 08:01 01/26/18 08:01 Labs: Microbiology - Last 24 Hours (Table) 01/25/18 15:30 Gram Stain - Preliminary Aspirate Body Fluid Culture - Preliminary Gram Neg Bacilli Assessment and Plan (1) Abdominal abscess Narrative/Plan: Continue antibiotics. Continue drain management. Increase diet. Current Visit: Yes Status: Acute Code(s): UKQ9371 - SNOMED Code(s): 17354402
[2018-01-27] MEDS: ANIDULAFUNGIN 100 MG in SODIUM CHLORIDE 0.9% 100 ML IVPB SCH (10:57)
[2018-01-27] MEDS: ATORVASTATIN 40 MG TAB PO SCH (21:13)
[2018-01-28] MEDS: MEROPENEM 2 GM in SODIUM CHLORIDE 0.9% 100 ML IVPB SCH ×4 (01:00→23:41)
[2018-01-28] MEDS: HEPARIN SODIUM,PORCINE 5,000 UNIT/ML 1 ML VIAL SQ SCH ×4 (01:01→23:41)
--- NOTE | 2018-01-28 05:13 | PN ---
PROGRESS NOTE DATE OF SERVICE: January 27, 2018. PRESENTING COMPLAINT: Intraabdominal abscess. INTERVAL HISTORY: This is a patient with recent coronary bypass followed by ischemic bowel, ileostomy now presented with intraabdominal abscess status post radiologically placed drain, draining well. Abdomen discussed. Much improved. The patient actually diet is getting better and did sit down in the chair. REVIEW OF SYSTEMS: Done for constitutional, cardiovascular, GI, pulmonary and relevant findings as above. CURRENT MEDICATIONS: Reviewed and include IV antifungals and IV meropenem. PHYSICAL EXAMINATION: VITAL SIGNS: Temperature 98.6, pulse 58, respiratory rate 16, blood pressure 99/65, pulse ox 97% on room air. GENERAL APPEARANCE: Lying in bed, tired appearing. EYES: Pupils equal. Conjunctivae pale. HEENT external appearance of nose and ears normal. Oral cavity normal. NECK: JVD not raised. Mass not palpable. RESPIRATORY: Effort. LUNGS: Diminished breath sounds. CARDIOVASCULAR 1st and 2nd sounds normal. No edema. ABDOMEN: Soft. Minimal tender. Wound VAC in place. Ileostomy bag with stool in place. PSYCHIATRY: Alert and oriented x3. Mood and affect normal. INVESTIGATIONS: No blood work from today. Intraabdominal fluid is growing E coli and group B Enterococcus. ASSESSMENT: 1. Intraabdominal abscess in a patient with recent ischemic bowel and partial colectomy now with intraabdominal drain in place growing E coli and group D enterococcus. 2. Coronary artery disease status post coronary bypass in November. 3. Ischemic bowel with perforation right transverse colectomy, takedown of the ileostomy from last admission. 4. Abdominal wound VAC. 5. Paroxysmal atrial fibrillation currently in sinus rhythm on Eliquis. 6. Peripheral artery disease. 7. Hypothyroidism. 8. Diabetes mellitus type 2. 9. Chronic low back pain from arthritis. 10.Depression, not otherwise specified. 11.Hyperlipidemia. 12.Moderate protein-calorie malnutrition from decreased oral intake. 13.Left pleural effusion postsurgical. 14.Essential hypertension. PLAN: Patient is clinically improving. Continue with IV antibiotics. The E coli has come back to be ESBL. Care was discussed with the patient. Follow. MMODL / IJN: [id number] /
[2018-01-28] MEDS: LEVOTHYROXINE 75 MCG TAB PO SCH (06:53)
[2018-01-28] MEDS: IPRATROPIUM-ALBUTEROL 3 ML NEB INHALATION SCH ×4 (08:23→21:10)
[2018-01-28] MEDS: ASCORBIC ACID 500 MG TAB PO SCH (08:54)
[2018-01-28] MEDS: ONDANSETRON 4 MG/2 ML VIAL IVP PRN (08:54)
[2018-01-28] MEDS: METOPROLOL TARTRATE 25 MG TAB PO SCH ×2 (08:54→20:03)
[2018-01-28] MEDS: FUROSEMIDE 40 MG TAB PO SCH ×2 (08:55→16:08)
[2018-01-28] MEDS: POTASSIUM CHLORIDE ER 20 MEQ TAB.ER PO SCH (08:55)
[2018-01-28] MEDS: ASPIRIN 81 MG PO SCH (08:55)
[2018-01-28] MEDS: AMIODARONE 100 MG TAB PO SCH (08:55)
[2018-01-28] MEDS: LOSARTAN 25 MG TAB PO SCH (08:55)
[2018-01-28] MEDS: DULoxetine HCL 60 MG CAPSULE.DR PO SCH (08:55)
[2018-01-28] MEDS: CYANOCOBALAMIN 500 MCG TAB PO SCH (08:55)
[2018-01-28] MEDS: PANTOPRAZOLE 40 MG TABLET PO SCH (08:55)
--- NOTE | 2018-01-28 10:38 | P.PN ---
Subjective Progress Note Date: 01/28/18 Principal diagnosis: Abdominal abscess Patient complaining of mild nausea today. Otherwise tolerating diet. Drain output decreasing. Pain is improved. White blood cell count pending. Objective - Vital Signs Vital signs: Vital Signs Temp 98.2 F 01/28/18 06:20 Pulse 72 01/28/18 08:33 Resp 17 01/28/18 06:20 BP 134/82 01/28/18 06:20 Pulse Ox 96 01/28/18 06:20 Intake & Output 01/27/18 01/28/18 01/28/18 18:59 06:59 18:59 Intake Total 2040 Output Total 25 Balance 2014 Weight 76.5 kg Intake: Oral 2039 Output: Stool 25 Other: # Voids 2 3 - Exam Kg: Soft, nondistended, mild tenderness, incisions clean - Labs CBC & Chem 7: 01/26/18 08:01 01/26/18 08:01 Labs: Microbiology - Last 24 Hours (Table) 01/25/18 15:30 Gram Stain - Preliminary Aspirate Body Fluid Culture - Preliminary Escherichia coli Group D Enterococcus Assessment and Plan (1) Abdominal abscess Narrative/Plan: Continue drain to dependent drainage. Continue antibiotics. Follow cultures. Continue diet as tolerated. Current Visit: Yes Status: Acute Code(s): IWR9642 - SNOMED Code(s): 48673134
[2018-01-28 11:06] LABS: Basophils # (A) 0.1 k/uL (0-0.2); Basophils % (A) 1 %; Eosinophils # (A) 0.6 k/uL (0-0.7); Eosinophils % (A) 3 %; HCT 30.1 % (34.0-46.0); HGB 9.3 gm/dL (11.4-16.0); Hypochromasia Marked; Lymphocytes # (A) 1.1 k/uL (1.0-4.8); Lymphocytes % (A) 5 %; MCH 25.1 pg (25.0-35.0); MCHC 30.8 g/dL (31.0-37.0); MCV 81.5 fL (80.0-100.0); Mean Platelet Volume 6.6; Monocytes # (A) 0.8 k/uL (0-1.0); Monocytes % (A) 4 %; Neutrophils # (A) 17.9 k/uL (1.3-7.7); Neutrophils % (A) 87 %; Platelet Count 769 k/uL (150-450); Poikilocytosis Slight; RBC 3.69 m/uL (3.80-5.40); RDW 15.8 % (11.5-15.5); WBC 20.6 k/uL (3.8-10.6)
[2018-01-28] MEDS ORDERED: diphenhydrAMINE 25 MG CAP PO STA (12:48)
[2018-01-28] MEDS: ANIDULAFUNGIN 100 MG in SODIUM CHLORIDE 0.9% 100 ML IVPB SCH (12:57)
--- NOTE | 2018-01-28 17:14 | PN ---
PROGRESS NOTE DATE OF SERVICE: January 28, 2018. PRESENTING COMPLAINT: Intraabdominal abscess. INTERVAL HISTORY: Patient had recent coronary bypass followed by ischemic bowel ileostomy presented with intraabdominal abscess status post drain being placed. Drain output is not going down. The patient feels better. Did sit up on the bed. REVIEW OF SYSTEMS: Done for constitutional, cardiovascular, GI, pulmonary and relevant findings as above. CURRENT MEDICATIONS: Reviewed that include IV antifungal and meropenem. PHYSICAL EXAMINATION: VITAL SIGNS: Temperature 97.8, pulse 74, respiration 16, blood pressure 106/69, pulse ox 96% on room air. GENERAL APPEARANCE: Lying in bed, tired, awake. EYES: Pupils equal. Conjunctivae pale. HEENT: External appearance of nose and ears normal. Oral cavity normal. NECK JVD not raised. Mass not palpable. RESPIRATORY effort normal. LUNGS decreased breath sounds. CARDIOVASCULAR: 1st and 2nd sounds. No edema. ABDOMEN: Soft, minimal tenderness. Wound VAC in place. Ileostomy bag in place with stool in there. PSYCHIATRY: Alert and oriented times three. Mood and affect slightly anxious- appearing. INVESTIGATIONS: White count 20.6, hemoglobin 9.33. ASSESSMENT: 1. Intraabdominal abscess in a patient with recent ischemic bowel and partial colectomy, now with intraabdominal drain in place, growing E coli and group D enterococcus. 2. Coronary artery disease status post coronary artery bypass in November. 3. Ischemic bowel with perforation with a right transverse colectomy and takedown with ileostomy from last admission. 4. Abdominal wound VAC in place. 5. Paroxysmal atrial fibrillation currently in sinus rhythm on Eliquis. 6. Peripheral artery disease. 7. Hypothyroidism. 8. Diabetes mellitus type 2. 9. Chronic low back pain from arthritis. 10.Depression, not otherwise specified. 11.Hyperlipidemia. 12.Moderate protein-calorie malnutrition from decreased oral intake. 13.Left pleural effusion, postsurgical. 14.Essential hypertension. The patient is doing well. Continue with the current antibiotics. This will be coordinated by Infectious Disease. Care was discussed with the patient. Will follow with surgery. MMODL / IJN: [id number] /
[2018-01-28] MEDS: ATORVASTATIN 40 MG TAB PO SCH (20:03)
[2018-01-29] MEDS: LEVOTHYROXINE 75 MCG TAB PO SCH (06:03)
[2018-01-29] MEDS: IPRATROPIUM-ALBUTEROL 3 ML NEB INHALATION SCH ×4 (06:57→20:22)
[2018-01-29] MEDS: HEPARIN SODIUM,PORCINE 5,000 UNIT/ML 1 ML VIAL SQ SCH ×3 (08:16→23:53)
[2018-01-29] MEDS: ASCORBIC ACID 500 MG TAB PO SCH (08:17)
[2018-01-29] MEDS: AMIODARONE 100 MG TAB PO SCH (08:17)
[2018-01-29] MEDS: ASPIRIN 81 MG PO SCH (08:17)
[2018-01-29] MEDS: METOPROLOL TARTRATE 25 MG TAB PO SCH ×2 (08:17→20:20)
[2018-01-29] MEDS: FUROSEMIDE 40 MG TAB PO SCH ×2 (08:17→16:48)
[2018-01-29] MEDS: POTASSIUM CHLORIDE ER 20 MEQ TAB.ER PO SCH (08:17)
[2018-01-29] MEDS: LOSARTAN 25 MG TAB PO SCH (08:17)
[2018-01-29] MEDS: PANTOPRAZOLE 40 MG TABLET PO SCH (08:17)
[2018-01-29] MEDS: DULoxetine HCL 60 MG CAPSULE.DR PO SCH (08:17)
[2018-01-29] MEDS: MEROPENEM 2 GM in SODIUM CHLORIDE 0.9% 100 ML IVPB SCH ×3 (09:10→23:53)
[2018-01-29] MEDS: ANIDULAFUNGIN 100 MG in SODIUM CHLORIDE 0.9% 100 ML IVPB SCH (11:44)
[2018-01-29] MEDS: CYANOCOBALAMIN 500 MCG TAB PO SCH (11:44)
[2018-01-29] MEDS: IOPAMIDOL-300 CONTRAST 30 ML VIAL (ORAL USE) PO PRN ×2 (17:34→18:30)
--- NOTE | 2018-01-29 19:36 | CT ---
EXAMINATION TYPE: CT abdomen pelvis w con DATE OF EXAM: 01/29/2018 HISTORY: Recent abscess drainage, drainage output not going down. CT DLP: 1421.3mGycm Automated Exposure Control for Dose Reduction was Utilized. CONTRAST: CT scan of the abdomen and pelvis is performed with IV Contrast, patient injected with 100 mL of Isov ue M300. COMPARISON: CT abdomen and pelvis January 24, 2018 FINDINGS: LUNG BASES: There is a small to moderate size left pleural effusion with associated compressive atele ctasis. There is stable posterior right basilar linear scarring and/or atelectasis. There is partial visualization of sternal wires redemonstrated. LIVER/GB: Cholecystectomy clips are redemonstrated. PANCREAS: Mild diffuse fat replaced atrophy of pancreas is noted. SPLEEN: Multiple scattered calcifications throughout the spleen are again seen.. ADRENALS: Slight thickening of the left adrenal gland favors benign hyperplasia. KIDNEYS: No significant abnormality is seen. BOWEL: Oral contrast changes proximal to mid ileal bowel level making evaluation of distal bowel subo ptimal. There is no suspicious small or large bowel dilatation. There is some prominence of stomach a nd duodenal sweep. Right-sided ostomy is redemonstrated. UTERUS/ADNEXA: No gross abnormality seen. LYMPH NODES: No greater than 1cm abdominal or pelvic lymph nodes are appreciated. OSSEOUS STRUCTURES: Multilevel spurring is seen. Facet arthropathy lower lumbar levels as noted. OTHER: There is redemonstration of right-sided rim-enhancing fluid collection occupying paracolic gut ter measuring roughly 7.3 x 4.5 by 11.3 cm axial image 15 and coronal image 35 likely reflecting absc ess stable or slightly smaller in size from prior study. Percutaneous pigtail drainage catheter has b een displaced as is in the right lateral subcutaneous fat abutting the rectus muscle. There is redemonstration of second anterior fluid collection axial image 38 could reflect nonopacifie d bowel but second abscess needs to be considered measuring 2.9 x 1.9 cm axial image 38 not significa ntly changed from prior. There is third thin-walled fluid collection superior and anterior to bladder axial image 73 measuring 5.1 x 3.8 cm stable or slightly smaller versus prior. There is persistent vertical scar with vertical fluid and some foci of air in the deep fat axial imag e 53 noted this could reflect product of surgery but infection at this level cannot be excluded. There is fairly moderate calcified plaque in the abdominal aorta extending into branch vessels. IMPRESSION: Right paracolic fluid collection or abscess stable or slightly smaller. Pigtail catheter is dislodged laterally into the subcutaneous fat and needs to be replaced or repositioned. Two additi onal or thin-walled fluid collections are stable or slightly smaller in the left midabdomen anteriorl y and in the pelvis superior and anterior to bladder could reflect additional abscesses. Results of displaced percutaneous pigtail catheter discussed with patient's nurse via telephone at ti me of dictation.
[2018-01-29] MEDS: CALCIUM CARBONATE 500 MG CHEWABLE PO PRN (19:45)
[2018-01-29] MEDS: ATORVASTATIN 40 MG TAB PO SCH (20:20)
--- NOTE | 2018-01-29 22:03 | PN ---
PROGRESS NOTE DATE OF SERVICE: 01/29/2018. PRESENT COMPLAINT: Abdominal abscess. INTERVAL HISTORY: The patient had a recent coronary artery bypass followed by ischemic bowel, ileostomy present, presented with intraabdominal abscess status post drain being placed. Drainage output has gone down count. Discussed with Dr. Montoya. Repeat CT scan of the abdomen shows the drainage tube to be against the wall in the subcutaneous tissue. Need to be repositioned. Otherwise, patient tolerating a diet. The ileostomy bag is working. REVIEW OF SYSTEMS: Done for constitutional, cardiovascular, GI, pulmonary, relevant findings as above. CURRENT MEDICATIONS: Reviewed that include IV meropenem and antifungal. PHYSICAL EXAMINATION: VITAL SIGNS: Temperature 98.3, pulse 74, respiration 18, blood pressure 119/70, pulse ox 96% on room air. GENERAL APPEARANCE: Lying in bed, tired, awake. EYES: Pupils equal. Conjunctivae pale. HEENT: External appearance of nose and ears normal. Oral cavity normal. NECK JVD not raised. Mass not palpable. RESPIRATORY effort normal. LUNGS decreased breath sounds. CARDIOVASCULAR: 1st and 2nd sounds normal. No edema. ABDOMEN: Minimal tenderness. Wound VAC in place. Ileostomy bag in place. Abdominal drain is present. PSYCHIATRY alert and oriented times three. Mood and affect normal. INVESTIGATIONS: No blood work from today. CT scan of the abdomen shows intraabdominal drain to be subcutaneous tissue. ASSESSMENT: 1. Intraabdominal abscess in a patient with known recent ischemic bowel, partial colectomy, now with intraabdominal drain in place, growing E coli and group B Enterococcus. 2. Coronary artery disease status post coronary bypass in November. 3. 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 4. Abdominal wound VAC in place. 5. Paroxysmal atrial fibrillation currently in sinus rhythm on Eliquis. 6. Peripheral artery disease. 7. Hypothyroidism. 8. Diabetes mellitus type 2. 9. Chronic low back pain from arthritis. 10.Depression, not otherwise specified. 11.Hyperlipidemia. 12.Moderate protein-calorie malnutrition from decreased oral intake. 13.Left pleural effusion postsurgical. 14.Essential hypertension. PLAN: Earlier in the day, I spoke at length with the patient explaining the clinical picture. Later I spoke to Dr. Montoya and then CT scan of the abdomen was ordered. I am ordering a repeat consult interventional Radiology to reposition the intraabdominal catheter. Prognosis remains guarded. Antibiotics to continue per Dr. Mccartney. MMODL / IJN: [id number] /
--- NOTE | 2018-01-29 23:03 | P.PN ---
Subjective Progress Note Date: 01/29/18 It is noted the patient had significant increasing abdominal pain and computed tomography scan showed evidence of increasing fluid collections intra- abdominally. Will have percutaneous drainage of this abscess area today. Interventional radiology. Antimicrobial therapy with Merrem and Eraxis is restarted at this time. Continue ongoing supportive care. Local wound care for now will be saline dressing to the abdominal ulcerations while this workup is in process. 01/29/2018 is following with surgery. Follow-up computed tomography scan has been requested to help determine next step and outpatient therapy. Objective - Vital Signs Vital signs: Vital Signs Temp 98.5 F 01/29/18 19:47 Pulse 74 01/29/18 15:00 Resp 18 01/29/18 15:00 BP 119/70 01/29/18 15:00 Pulse Ox 96 01/29/18 15:00 Intake & Output 01/29/18 01/29/18 01/30/18 06:59 18:59 06:59 Intake Total 360 Balance 360 Weight 74 kg 74 kg Intake: Oral 360 Other: # Voids 4 2 1 - Exam It is noted the patient had significant increasing abdominal pain and computed tomography scan showed evidence of increasing fluid collections intra- abdominally. Will have percutaneous drainage of this abscess area today. Interventional radiology. Antimicrobial therapy with Merrem and Eraxis is restarted at this time. Continue ongoing supportive care. Local wound care for now will be saline dressing to the abdominal ulcerations while this workup is in process. 01/29/2018 reveals the patient to have ongoing symptoms with some improvement. We'll have a further computed tomography scan performed to further evaluate the need for interventional radiology placing further catheters. Antimicrobial therapy continues patient is feeling somewhat better. - Labs CBC & Chem 7: 01/28/18 10:17 01/26/18 08:01 Labs: Microbiology - Last 24 Hours (Table) 01/25/18 15:30 Gram Stain - Final Aspirate Body Fluid Culture - Final Escherichia coli Enterococcus faecium
[2018-01-30] MEDS: LEVOTHYROXINE 75 MCG TAB PO SCH (06:15)
[2018-01-30] MEDS: IPRATROPIUM-ALBUTEROL 3 ML NEB INHALATION SCH ×4 (07:26→19:34)
[2018-01-30] MEDS: FUROSEMIDE 40 MG TAB PO SCH ×2 (07:52→17:58)
[2018-01-30] MEDS: HEPARIN SODIUM,PORCINE 5,000 UNIT/ML 1 ML VIAL SQ SCH ×2 (07:52→17:58)
[2018-01-30] MEDS: MEROPENEM 2 GM in SODIUM CHLORIDE 0.9% 100 ML IVPB SCH ×2 (07:52→18:01)
[2018-01-30] MEDS: DULoxetine HCL 60 MG CAPSULE.DR PO SCH (07:53)
[2018-01-30] MEDS: ASCORBIC ACID 500 MG TAB PO SCH (07:53)
[2018-01-30] MEDS: ASPIRIN 81 MG PO SCH (07:53)
[2018-01-30] MEDS: PANTOPRAZOLE 40 MG TABLET PO SCH (07:53)
[2018-01-30] MEDS: LOSARTAN 25 MG TAB PO SCH (07:54)
[2018-01-30] MEDS: METOPROLOL TARTRATE 25 MG TAB PO SCH ×2 (07:54→20:39)
[2018-01-30] MEDS: AMIODARONE 100 MG TAB PO SCH (07:54)
[2018-01-30] MEDS: POTASSIUM CHLORIDE ER 20 MEQ TAB.ER PO SCH (07:54)
--- NOTE | 2018-01-30 07:57 | P.PN ---
Progress Note - Text Progress Note Date: 01/29/18 The patient still has complaints of nausea and some abdominal pain. She's had limited output from her MASTER drain. She had leukocytosis yesterday with a white count of 20,000. On exam her vital signs are stable.. Her abdomen soft there is minimal tenderness. Patient will undergo repeat CAT scan to evaluate drainage of her abdominal abscess.
--- NOTE | 2018-01-30 08:30 | P.PN ---
Progress Note - Text Progress Note Date: 01/30/18 The patient's CAT scan shows that her CT-guided drain catheter has been dislodged. Patient still has a abscess present. The patient will undergo replacement of her drainage catheter today.
[2018-01-30 09:24] LABS: Basophils # (A) 0.2 k/uL (0-0.2); Basophils % (A) 1 %; Eosinophils # (A) 0.9 k/uL (0-0.7); Eosinophils % (A) 4 %; HCT 32.9 % (34.0-46.0); HGB 10.3 gm/dL (11.4-16.0); Hypochromasia Marked; Lymphocytes # (A) 1.6 k/uL (1.0-4.8); Lymphocytes % (A) 7 %; MCH 25.4 pg (25.0-35.0); MCHC 31.2 g/dL (31.0-37.0); MCV 81.4 fL (80.0-100.0); Mean Platelet Volume 7.1; Monocytes # (A) 0.9 k/uL (0-1.0); Monocytes % (A) 4 %; Neutrophils # (A) 19.2 k/uL (1.3-7.7); Neutrophils % (A) 83 %; Platelet Count 873 k/uL (150-450); Poikilocytosis Slight; RBC 4.05 m/uL (3.80-5.40); RDW 15.8 % (11.5-15.5)
[2018-01-30 09:29] LABS: ALT 23 U/L (9-52); AST 25 U/L (14-36); Albumin 2.7 g/dL (3.5-5.0); Alkaline Phosphatase 410 U/L (38-126); Anion Gap 12 mmol/L; Blood Urea Nitrogen 11 mg/dL (7-17); Calcium 9.3 mg/dL (8.4-10.2); Carbon Dioxide 29 mmol/L (22-30); Chloride 92 mmol/L (98-107); Glucose 158 mg/dL (74-99); Potassium 3.3 mmol/L (3.5-5.1); Sodium 133 mmol/L (137-145); Total Bilirubin 0.3 mg/dL (0.2-1.3)
[2018-01-30] MEDS ORDERED: INFLUENZA VACCINE (6 MOS+) 60 MCG/0.5 ML SYRINGE IM ONE (10:19)
[2018-01-30] MEDS: CYANOCOBALAMIN 500 MCG TAB PO SCH (11:55)
[2018-01-30] MEDS: ANIDULAFUNGIN 100 MG in SODIUM CHLORIDE 0.9% 100 ML IVPB SCH (11:56)
[2018-01-30] MEDS: ERGOCALCIFEROL 50,000 UNIT CAP PO SCH (11:57)
--- NOTE | 2018-01-30 12:33 | P.PN ---
Subjective Progress Note Date: 01/30/18 72-year-old female seen sitting up in bed spouse at bedsvt computed tomography scan that was done yesterday shows that the CT-guided drain catheter has been dislodged. Patient still has an abscess. Will need to undergo replacement of her drainage catheter today . This was discussed with patient and spouse. Did note in the drainage bag approximate 10 mL of creamy colored drainage noted moderate amount of stool from the ostomy patient currently is being followed by infectious disease. Did note the white count is up this morning to 23. Day before 20.6 afebrile 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 Recent coronary artery disease involving the left main coronary artery 4 done on 12/11/2017 Objective - Vital Signs Vital signs: Vital Signs Temp 97.9 F 01/30/18 06:11 Pulse 76 01/30/18 11:33 Resp 15 01/30/18 06:11 BP 103/73 01/30/18 06:11 Pulse Ox 96 01/30/18 06:11 Intake & Output 01/29/18 01/30/18 01/30/18 18:59 06:59 18:59 Intake Total 360 Balance 360 Weight 74 kg 74.5 kg Intake: Oral 360 Other: Voiding Method Diaper Incontinent # Voids 2 1 - Exam Physical exam 72-year-old female sitting up in bed appears in no acute distress Lungs adequate air movement bilaterally on room air sats are 96% Heart S1 and S2 audible regular Abdomen ostomy moderate amount of brown stool in the ostomy bag soft nondistended surgical dressing dry drain in place right flank appears displaced scant amount of drainage noted over the weekend currently about 10 ml noted in the drainage bag creamy yellow nontender nondistended indwelling Almaguer catheter in place Extremities a trace pedal edema bilaterally - Labs CBC & Chem 7: 01/30/18 08:16 01/30/18 08:16 Labs: Abnormal Lab Results - Last 24 Hours (Table) 01/30/18 01/30/18 Range/Units 08:16 08:16 WBC 23.0 H (3.8-10.6) k/uL Hgb 10.3 L (11.4-16.0) gm/dL Hct 32.9 L (34.0-46.0) % RDW 15.8 H (11.5-15.5) % Plt Count 873 H (150-450) k/uL Neutrophils # 19.2 H (1.3-7.7) k/uL Eosinophils # 0.9 H (0-0.7) k/uL Sodium 133 L (137-145) mmol/L Potassium 3.3 L (3.5-5.1) mmol/L Chloride 92 L (98-107) mmol/L Glucose 158 H (74-99) mg/dL Alkaline Phosphatase 410 H (38-126) U/L Total Protein 6.0 L (6.3-8.2) g/dL Albumin 2.7 L (3.5-5.0) g/dL Assessment and Plan Assessment: Impression Present on admission generalized weakness loss of appetite vomiting unintentional weight loss 20 pounds unclear etiology Present on admission leukocytosis 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 coronary artery disease involving the left main coronary artery Preserved left ventricular function paroxysmal atrial fibrillation EKG on admission sinus rhythm Recent December 11 quadruple coronary artery bypass grafting Debility Status post successful ultrasound-guided right abdominal abscess drainage catheter insertion per interventional radiology Plan Interventional radiology to replace the dislodged percutaneous drain catheter Defer to medicine to address medical issues DVT and GI prophylaxis Will follow with you Continue recommendations by infectious disease PT OT No evidence of acute surgical abdomen at this time Local wound care per infectious disease saline dressings to the abdominal ulceration, workup is in progress The above impression and plan of care have been discussed and directed by signing physician. Missy Baca nurse practitioner acting as scribe for signing physician.
--- NOTE | 2018-01-30 16:47 | PN ---
PROGRESS NOTE DATE OF SERVICE: 01/30/2018 PRESENTING COMPLAINT: Abdominal abscess. INTERVAL HISTORY: This is a patient who had recent coronary bypass followed by ischemic bowel, ileostomy present; presented with intraabdominal abscess, status post drain placed. It was draining and output went down. Repeat CT scan shows some collection of abscess. Drainage tube has to be repositioned. Pending that today. Lying in bed. No nausea or vomiting. REVIEW OF SYSTEMS: Done for constitutional, cardiovascular, GI, pulmonary; relevant findings as above. CURRENT MEDICATIONS: Reviewed. They include IV antifungal and meropenem. PHYSICAL EXAMINATION: Temperature 98.2, pulse 74, respiration 18, blood pressure 88/57, pulse ox 100% on room air. GENERAL APPEARANCE: Lying in bed, tired, awake. EYES: Pupils equal. Conjunctivae pale. HEENT: External appearance of nose and ears normal. Oral cavity normal. NECK: JVD not raised. Mass not palpable. RESPIRATORY: Effort normal. LUNGS: Decreased breath sounds. CARDIOVASCULAR: First and second sounds normal. Some edema. ABDOMEN: Soft. Minimal tenderness. Wound V.A.C. in place. Ileostomy bag in place. Abdominal drain is present. PSYCHIATRY: Alert and oriented x3. Mood and affect normal. INVESTIGATIONS: White count 23, hemoglobin 10.3, potassium 3.3. CT scan results noted yesterday. ASSESSMENT: 1. Intraabdominal abscess in a patient with known recent ischemic bowel, partial colectomy, now with intraabdominal drain in place, growing Escherichia coli and group B Enterococcus. Now the intraabdominal drain needs to be repositioned, as it has stopped draining. 2. Coronary artery disease, status post bypass in November of this year. 3. Ischemic bowel perforation and right transverse colectomy and takedown of ileostomy from last admission. 4. Abdominal wound V.A.C. in place. 5. Paroxysmal atrial fibrillation, currently in sinus rhythm, on Eliquis. 6. Peripheral arterial disease. 7. Hypothyroidism. 8. Diabetes mellitus, type 2. 9. Chronic low back pain from arthritis. 10.Depression not otherwise specified. 11.Hyperlipidemia. 12.Moderate protein-calorie malnutrition from decreased oral intake. 13.Left pleural effusion, post-surgical. 14.Essential hypertension. PLAN: Care was discussed with the patient. Patient will be going down to the interventional radiologist for replacement of the abdominal tube. In the meantime, antibiotics are to continue. Patient's white count has been slowly climbing up again. Will follow. MMODL / IJN: [id number] /
[2018-01-30] MEDS ORDERED: HYDROmorphone 1 MG/ML 1 ML SYRINGE IVP PRN (16:52)
[2018-01-30] MEDS: ATORVASTATIN 40 MG TAB PO SCH (20:38)
[2018-01-31] MEDS: MEROPENEM 2 GM in SODIUM CHLORIDE 0.9% 100 ML IVPB SCH ×3 (00:35→15:10)
[2018-01-31] MEDS: HEPARIN SODIUM,PORCINE 5,000 UNIT/ML 1 ML VIAL SQ SCH ×3 (00:39→16:27)
[2018-01-31] MEDS: ONDANSETRON 4 MG/2 ML VIAL IVP PRN (05:58)
[2018-01-31] MEDS: LEVOTHYROXINE 75 MCG TAB PO SCH (06:10)
[2018-01-31] MEDS: LOSARTAN 25 MG TAB PO SCH (08:45)
[2018-01-31] MEDS: PANTOPRAZOLE 40 MG TABLET PO SCH (08:49)
[2018-01-31] MEDS: AMIODARONE 100 MG TAB PO SCH (08:49)
[2018-01-31] MEDS: CYANOCOBALAMIN 500 MCG TAB PO SCH (08:49)
[2018-01-31] MEDS: FUROSEMIDE 40 MG TAB PO SCH ×2 (08:50→16:27)
[2018-01-31] MEDS: DULoxetine HCL 60 MG CAPSULE.DR PO SCH (08:50)
[2018-01-31] MEDS: ASPIRIN 81 MG PO SCH (08:50)
[2018-01-31] MEDS: POTASSIUM CHLORIDE ER 20 MEQ TAB.ER PO SCH (08:50)
[2018-01-31] MEDS: ASCORBIC ACID 500 MG TAB PO SCH (08:50)
[2018-01-31] MEDS: METOPROLOL TARTRATE 25 MG TAB PO SCH ×2 (08:50→21:25)
--- NOTE | 2018-01-31 08:50 | CT ---
EXAMINATION TYPE: CT guided abscess drainage DATE OF EXAM: 01/30/2018 HISTORY: Abscess COMPARISON: CT 01/29/2018 PROCEDURE: Maximal barrier technique was utilized. The skin over suitable path to the abscess was localized wit h CT and the overlying skin prepped and draped. Lidocaine was used for local anesthesia. A skin isabela k made with a scalpel. Access was gained using CT guidance with a 21-gauge needle, purulent material returned in the hub of the needle. A 0.018 inch wire was advanced and the access site was upsized, the wire was upsized and subsequently an 8.5-Danish drain was deployed within the abscess cavity and fixed in place. Catheter attached to gravity drainage. No immediate complication. Purulent materia l sent for laboratory analysis and draining into the bag. The patient remained in stable condition. IMPRESSION: STATUS POST CT GUIDED ABSCESS DRAINAGE, MICROBIOLOGY ANALYSIS IS PENDING. THIS PROCEDURE WAS PERFORM ED BY THE UNDERSIGNED.
[2018-01-31] MEDS: IPRATROPIUM-ALBUTEROL 3 ML NEB INHALATION SCH ×4 (09:11→19:52)
[2018-01-31 11:30] LABS: Anion Gap 12 mmol/L; Blood Urea Nitrogen 12 mg/dL (7-17); Calcium 9.1 mg/dL (8.4-10.2); Carbon Dioxide 24 mmol/L (22-30); Chloride 95 mmol/L (98-107); Glucose 231 mg/dL (74-99); Potassium 2.8 mmol/L (3.5-5.1); Sodium 131 mmol/L (137-145)
[2018-01-31] MEDS: ANIDULAFUNGIN 100 MG in SODIUM CHLORIDE 0.9% 100 ML IVPB SCH (11:31)
[2018-01-31] MEDS: POTASSIUM CHLORIDE ER 10 MEQ TAB.ER.PRT PO SCH ×3 (12:10→14:09)
--- NOTE | 2018-01-31 14:32 | P.PN ---
Subjective Progress Note Date: 01/31/18 72-year-old female seen at the bedside sitting up in a chair patient states "very upset about being in the hospital so long concerned about my daughter's who is quite ill. interventional radiology place a CT-guided percutaneous drain yesterday the prior drain had been come dislodged. Drainage bag, right side scant amount of cream-colored drainage noted. Ostomy moderate amount of stool noted. Labs were noted potassium 2.8 which replacement is being given. No CBC this morning. Currently patient is denying dizziness lightheadedness chest pain or shortness of breath or nausea or vomiting does report having "no appetite 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 Recent coronary artery disease involving the left main coronary artery 4 done on 12/11/2017 Objective - Vital Signs Vital signs: Vital Signs Temp 98.1 F 01/31/18 07:00 Pulse 72 01/31/18 09:23 Resp 16 01/31/18 07:00 BP 102/70 01/31/18 07:00 Pulse Ox 96 01/31/18 07:00 Intake & Output 01/30/18 01/31/18 01/31/18 18:59 06:59 18:59 Intake Total 360 240 Output Total 10 Balance 350 240 Weight 74.5 kg Intake: Oral 360 240 Output: Drainage 10 Right Abdomen 10 Other: # Voids 4 1 1 # Bowel Movements 0 - Exam Physical exam 72-year-old female sitting up in a chair appears in no acute distress Lungs adequate air movement bilaterally on room air sats are 96% Heart S1 and S2 audible regular Abdomen ostomy moderate amount of brown stool in the ostomy bag soft nondistended nontender surgical dressing dry drain in place right flank approximately 10 mL in drainage bag Extremities a trace pedal edema bilaterally - Labs CBC & Chem 7: 01/30/18 08:16 01/31/18 10:15 Labs: Abnormal Lab Results - Last 24 Hours (Table) 01/31/18 Range/Units 10:15 Sodium 131 L (137-145) mmol/L Potassium 2.8 L (3.5-5.1) mmol/L Chloride 95 L (98-107) mmol/L Glucose 231 H (74-99) mg/dL Microbiology - Last 24 Hours (Table) 01/25/18 15:30 Gram Stain - Final Aspirate Body Fluid Culture - Final Escherichia coli Enterococcus faecium Assessment and Plan Assessment: Impression Present on admission generalized weakness loss of appetite vomiting unintentional weight loss 20 pounds unclear etiology Present on admission leukocytosis 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 coronary artery disease involving the left main coronary artery Preserved left ventricular function paroxysmal atrial fibrillation EKG on admission sinus rhythm Recent December 11 quadruple coronary artery bypass grafting Debility Status post successful ultrasound-guided right abdominal abscess drainage catheter insertion per interventional radiology Plan Defer to medicine to address medical issues DVT and GI prophylaxis Will follow with you Continue recommendations by infectious disease PT OT No evidence of acute surgical abdomen at this time Local wound care per infectious disease saline dressings to the abdominal incision Evaluate and manage percutaneous drainage tube catheter with dressing change every 7 days or as needed The above impression and plan of care have been discussed and directed by signing physician. Missy Baca nurse practitioner acting as scribe for signing physician.
[2018-01-31] MEDS ORDERED: POTASSIUM CHLORIDE ER 20 MEQ TAB.ER PO STA (19:33)
--- NOTE | 2018-01-31 20:06 | PN ---
PROGRESS NOTE DATE OF SERVICE: 01/31/2018. PRESENTING COMPLAINT: Intraabdominal abscess. INTERVAL HISTORY: This is a patient with recent coronary bypass followed by ischemic bowel and ileostomy present for an intraabdominal abscess. Drain was placed. Because the drain was not draining well, intervention Radiology yesterday replaced the same and good drainage has been made since then. The patient felt a bit nauseated this morning. Did tolerate some diet. Does feel tired and run down. REVIEW OF SYSTEMS: Done for constitutional, cardiovascular, GI, pulmonary and relevant findings as above. CURRENT MEDICATIONS: Reviewed that include IV antifungal and IV meropenem. EXAMINATION: VITAL SIGNS: Temp 97.7, pulse 71, respiratory 18, blood pressure 103/76, pulse ox 93% on room air. GENERAL APPEARANCE: Lying in bed, tired, awake. EYES: Pupils equal. Conjunctivae pale. HEENT: External appearance of nose and ears. Oral cavity normal. NECK: JVD not raised. Mass not palpable. RESPIRATORY: Effort normal. LUNGS decreased breath sounds. CARDIOVASCULAR: 1st and 2nd sounds normal. Mild edema. ABDOMEN: Soft. No tenderness. Wound VAC in place. Ileostomy bag in place. Abdominal drain is present. PSYCH: Alert and oriented x3. Mood and affect normal. INVESTIGATIONS: Potassium 2.8, BUN 12, creatinine 0.52. ASSESSMENT: 1. Intraabdominal abscess in a patient with known recent ischemic bowel, partial colectomy, and the intraabdominal drain has been repositioned, draining well. Cultures growing coli and group B Enterococcus. 2. Coronary artery disease status post bypass in November of this year. 3. Ischemic bowel perforation, right transverse colectomy and takedown of ileostomy from last admission. 4. Abdominal wound VAC in place. 5. Paroxysmal atrial fibrillation currently in sinus rhythm on Eliquis. 6. Peripheral artery disease. 7. Hypothyroidism. 8. Diabetes mellitus type 2. 9. Chronic low back pain from arthritis. 10.Depression, not otherwise specified. 11.Hyperlipidemia. 12.Moderate protein-calorie malnutrition from decreased oral intake. 13.Left pleural effusion postsurgical. 14.Essential hypertension. PLAN: Care was discussed with the patient. Questions were answered. The patient's abdominal drain is draining well. Will follow. MMODL / IJN: [id number] /
[2018-01-31] MEDS: ATORVASTATIN 40 MG TAB PO SCH (21:25)
[2018-02-01] MEDS: MEROPENEM 2 GM in SODIUM CHLORIDE 0.9% 100 ML IVPB SCH ×3 (00:30→15:11)
[2018-02-01] MEDS: HEPARIN SODIUM,PORCINE 5,000 UNIT/ML 1 ML VIAL SQ SCH ×3 (00:31→15:12)
[2018-02-01] MEDS: LEVOTHYROXINE 75 MCG TAB PO SCH (06:39)
[2018-02-01] MEDS: IPRATROPIUM-ALBUTEROL 3 ML NEB INHALATION SCH ×4 (07:08→19:02)
[2018-02-01] MEDS: AMIODARONE 100 MG TAB PO SCH (07:52)
[2018-02-01] MEDS: PANTOPRAZOLE 40 MG TABLET PO SCH (07:52)
[2018-02-01] MEDS: ASCORBIC ACID 500 MG TAB PO SCH (07:53)
[2018-02-01] MEDS: DULoxetine HCL 60 MG CAPSULE.DR PO SCH (07:53)
[2018-02-01] MEDS: ASPIRIN 81 MG PO SCH (07:53)
[2018-02-01] MEDS: METOPROLOL TARTRATE 25 MG TAB PO SCH ×2 (07:53→20:35)
[2018-02-01] MEDS: POTASSIUM CHLORIDE ER 20 MEQ TAB.ER PO SCH (07:53)
[2018-02-01] MEDS: FUROSEMIDE 40 MG TAB PO SCH ×2 (07:54→15:12)
[2018-02-01] MEDS: LOSARTAN 25 MG TAB PO SCH (07:54)
[2018-02-01] MEDS: ONDANSETRON 4 MG/2 ML VIAL IVP PRN (08:58)
[2018-02-01 09:46] LABS: Anisocytosis Slight; Basophils # (A) 0.2 k/uL (0-0.2); Basophils % (A) 1 %; Eosinophils % (A) 5 %; HCT 33.2 % (34.0-46.0); HGB 10.2 gm/dL (11.4-16.0); Hypochromasia Marked; Lymphocytes # (A) 1.6 k/uL (1.0-4.8); Lymphocytes % (A) 8 %; MCH 25.8 pg (25.0-35.0); MCHC 30.8 g/dL (31.0-37.0); MCV 83.7 fL (80.0-100.0); Mean Platelet Volume 6.8; Monocytes # (A) 0.7 k/uL (0-1.0); Monocytes % (A) 3 %; Neutrophils # (A) 16.8 k/uL (1.3-7.7); Neutrophils % (A) 83 %; Platelet Count 703 k/uL (150-450); Poikilocytosis Slight; RBC 3.96 m/uL (3.80-5.40); RDW 16.5 % (11.5-15.5); WBC 20.4 k/uL (3.8-10.6)
[2018-02-01 09:57] LABS: Anion Gap 13 mmol/L; Blood Urea Nitrogen 13 mg/dL (7-17); Calcium 9.3 mg/dL (8.4-10.2); Carbon Dioxide 23 mmol/L (22-30); Chloride 99 mmol/L (98-107); Glucose 252 mg/dL (74-99); Potassium 3.9 mmol/L (3.5-5.1); Sodium 135 mmol/L (137-145)
[2018-02-01] MEDS: CYANOCOBALAMIN 500 MCG TAB PO SCH (11:15)
[2018-02-01] MEDS: ANIDULAFUNGIN 100 MG in SODIUM CHLORIDE 0.9% 100 ML IVPB SCH (11:15)
--- NOTE | 2018-02-01 15:02 | P.PN ---
Subjective Progress Note Date: 02/01/18 72-year-old female seen this morning sitting up in a chair patient continues to state she is anxious to get to rehab white count this morning 20.4 day before 23 afebrile reports no abdominal pain scant amount of drainage from the right side percutaneous drain moderate amount of stool in the ostomy bag reports no abdominal pain. 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 Recent coronary artery disease involving the left main coronary artery 4 done on 12/11/2017 Status post replacement of percutaneous drain January 31 for an right side abdominal abscess Objective - Vital Signs Vital signs: Vital Signs Temp 98.5 F 02/01/18 14:47 Pulse 72 02/01/18 14:47 Resp 16 02/01/18 14:47 BP 95/63 02/01/18 14:47 Pulse Ox 97 02/01/18 14:47 Intake & Output 01/31/18 02/01/18 02/01/18 18:59 06:59 18:59 Intake Total 560 200 Output Total 15 120 400 Balance 545 -120 -200 Weight 73.5 kg Intake: IV 200 Anidulafungin 100 mg In 100 Sodium Chloride 0.9% 100 ml @ 84 mls/hr IVPB DAILY @1200 [facility] Rx#:[id number] Meropenem 2 gm In Sodium 100 Chloride 0.9% 100 ml @ 200 mls/hr IVPB Q8HR [facility] Rx#:[id number] Oral 360 200 Output: Drainage 15 20 Right Abdomen 15 20 Stool 100 Urine/Stool Mix 400 Other: Voiding Method Diaper Incontinent # Voids 3 3 2 # Bowel Movements 0 - Exam Physical exam 72-year-old female sitting up in a chair appears in no acute distress Lungs adequate air movement bilaterally on room air sats are 96% Heart S1 and S2 audible regular Abdomen ostomy moderate amount of brown stool in the ostomy bag soft nondistended nontender surgical dressing dry drain in place right flank approximately 10 mL in drainage bag Extremities a trace pedal edema bilaterally - Labs CBC & Chem 7: 02/01/18 08:53 02/01/18 08:53 Labs: Abnormal Lab Results - Last 24 Hours (Table) 02/01/18 02/01/18 Range/Units 08:53 08:53 WBC 20.4 H (3.8-10.6) k/uL Hgb 10.2 L (11.4-16.0) gm/dL Hct 33.2 L (34.0-46.0) % MCHC 30.8 L (31.0-37.0) g/dL RDW 16.5 H (11.5-15.5) % Plt Count 703 H (150-450) k/uL Neutrophils # 16.8 H (1.3-7.7) k/uL Eosinophils # 1.0 H (0-0.7) k/uL Sodium 135 L (137-145) mmol/L Glucose 252 H (74-99) mg/dL Assessment and Plan Assessment: Impression Present on admission generalized weakness loss of appetite vomiting unintentional weight loss 20 pounds unclear etiology Present on admission leukocytosis 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 coronary artery disease involving the left main coronary artery Preserved left ventricular function paroxysmal atrial fibrillation EKG on admission sinus rhythm Recent December 11 quadruple coronary artery bypass grafting Debility Status post successful ultrasound-guided right abdominal abscess drainage catheter insertion per interventional radiology Leukocytosis persist Plan Defer to medicine to address medical issues DVT and GI prophylaxis Will follow with you Continue recommendations by infectious disease Local wound care per infectious disease saline dressings to the abdominal incision Evaluate and manage percutaneous drainage tube catheter with dressing change every 7 days or as needed Repeat labs in the morning The above impression and plan of care have been discussed and directed by signing physician. Missy Baca nurse practitioner acting as scribe for signing physician.
[2018-02-01] MEDS: ATORVASTATIN 40 MG TAB PO SCH (20:35)
--- NOTE | 2018-02-01 21:48 | P.PN ---
Subjective Progress Note Date: 02/01/18 It is noted the patient had significant increasing abdominal pain and computed tomography scan showed evidence of increasing fluid collections intra- abdominally. Will have percutaneous drainage of this abscess area today. Interventional radiology. Antimicrobial therapy with Merrem and Eraxis is restarted at this time. Continue ongoing supportive care. Local wound care for now will be saline dressing to the abdominal ulcerations while this workup is in process. 01/29/2018 is following with surgery. Follow-up computed tomography scan has been requested to help determine next step and outpatient therapy. 02/01/2018 reveals the patient to be feeling somewhat better after the new drain placement by interventional radiology for the ongoing intra-abdominal abscess. Her pain is under good control and is anxious to get back to rehab. Objective - Vital Signs Vital signs: Vital Signs Temp 98.5 F 02/01/18 14:47 Pulse 72 02/01/18 14:47 Resp 16 02/01/18 14:47 BP 95/63 02/01/18 14:47 Pulse Ox 97 02/01/18 14:47 Intake & Output 02/01/18 02/01/18 02/02/18 06:59 18:59 06:59 Intake Total 200 Output Total 120 400 Balance -120 -200 Weight 73.5 kg Intake: Oral 200 Output: Drainage 20 Right Abdomen 20 Stool 100 Urine/Stool Mix 400 Other: Voiding Method Diaper Diaper Incontinent Incontinent # Voids 3 2 - Exam Gen: This is a 72-year-old female. she is supine in bed and appears to be comfortable and in no acute distress. HEENT: Head is atraumatic, normocephalic. Pupils equal, round. Sclerae is anicteric. Mucous members of the mouth are slightly dry. NECK: Supple. No JVD. No lymphadenopathy. No thyromegaly. LUNGS: Clear to auscultation. No wheezes or rhonchi. No intercostal retractions. HEART: Regular rate and rhythm. No murmur. Sternal wound is intact. No significant drainage, erythema.chest wall wound midsternal is healed with no signs of infection. ABDOMEN: ileostomy in place in the right side with brown stool. Bowel sounds are present. Wound has the dressing in place without difficulties, the drain has evidence of purulent material. EXTREMITIES: No pedal edema. Wound and left lower extremity shows no signs of infection. No drainage, significant erythema or edema.dorsalis pedis 1+ bilaterally. NEUROLOGICAL: Patient is awake alert and interactive with no focal neural deficits. \ - Labs CBC & Chem 7: 02/01/18 08:53 02/01/18 08:53 Labs: Abnormal Lab Results - Last 24 Hours (Table) 02/01/18 02/01/18 Range/Units 08:53 08:53 WBC 20.4 H (3.8-10.6) k/uL Hgb 10.2 L (11.4-16.0) gm/dL Hct 33.2 L (34.0-46.0) % MCHC 30.8 L (31.0-37.0) g/dL RDW 16.5 H (11.5-15.5) % Plt Count 703 H (150-450) k/uL Neutrophils # 16.8 H (1.3-7.7) k/uL Eosinophils # 1.0 H (0-0.7) k/uL Sodium 135 L (137-145) mmol/L Glucose 252 H (74-99) mg/dL Laboratory Results WBC 20.4 k/uL (3.8-10.6) H 02/01/18 08:53 RBC 3.96 m/uL (3.80-5.40) 02/01/18 08:53 Hgb 10.2 gm/dL (11.4-16.0) L 02/01/18 08:53 Hct 33.2 % (34.0-46.0) L 02/01/18 08:53 MCV 83.7 fL (80.0-100.0) 02/01/18 08:53 MCH 25.8 pg (25.0-35.0) 02/01/18 08:53 MCHC 30.8 g/dL (31.0-37.0) L 02/01/18 08:53 RDW 16.5 % (11.5-15.5) H 02/01/18 08:53 Plt Count 703 k/uL (150-450) H 02/01/18 08:53 Neutrophils % 83 % 02/01/18 08:53 Lymphocytes % 8 % 02/01/18 08:53 Monocytes % 3 % 02/01/18 08:53 Eosinophils % 5 % 02/01/18 08:53 Basophils % 1 % 02/01/18 08:53 Neutrophils # 16.8 k/uL (1.3-7.7) H 02/01/18 08:53 Lymphocytes # 1.6 k/uL (1.0-4.8) 02/01/18 08:53 Monocytes # 0.7 k/uL (0-1.0) 02/01/18 08:53 Eosinophils # 1.0 k/uL (0-0.7) H 02/01/18 08:53 Basophils # 0.2 k/uL (0-0.2) 02/01/18 08:53 Hypochromasia Marked 02/01/18 08:53 Poikilocytosis Slight 02/01/18 08:53 Anisocytosis Slight 02/01/18 08:53 PT 10.9 sec (9.0-12.0) 01/24/18 12:07 INR 1.1 (<1.2) 01/24/18 12:07 APTT 29.2 sec (22.0-30.0) 01/24/18 12:07 Sodium 135 mmol/L (137-145) L 02/01/18 08:53 Potassium 3.9 mmol/L (3.5-5.1) 02/01/18 08:53 Chloride 99 mmol/L (98-107) 02/01/18 08:53 Carbon Dioxide 23 mmol/L (22-30) 02/01/18 08:53 Anion Gap 13 mmol/L 02/01/18 08:53 BUN 13 mg/dL (7-17) 02/01/18 08:53 Creatinine 0.58 mg/dL (0.52-1.04) 02/01/18 08:53 Est GFR (CKD-EPI)AfAm >90 (>60 ml/min/1.73 sqM) 02/01/18 08:53 Est GFR (CKD-EPI)NonAf >90 (>60 ml/min/1.73 sqM) 02/01/18 08:53 Glucose 252 mg/dL (74-99) H 02/01/18 08:53 Lactic Ac Sepsis Rflx Y 01/24/18 12:40 Plasma Lactic Acid Frederick 1.9 mmol/L (0.7-2.0) 01/24/18 16:02 Calcium 9.3 mg/dL (8.4-10.2) 02/01/18 08:53 Magnesium 1.7 mg/dL (1.6-2.3) 01/24/18 12:07 Total Bilirubin 0.3 mg/dL (0.2-1.3) 01/30/18 08:16 AST 25 U/L (14-36) 01/30/18 08:16 ALT 23 U/L (9-52) 01/30/18 08:16 Alkaline Phosphatase 410 U/L (38-126) H 01/30/18 08:16 Total Creatine Kinase <20 U/L (30-135) L 01/24/18 12:07 CK-MB (CK-2) 0.3 ng/mL (0.0-2.4) 01/24/18 12:07 CK-MB (CK-2) Rel Index 01/24/18 12:07 Troponin I <0.012 ng/mL (0.000-0.034) 01/24/18 12:07 Total Protein 6.0 g/dL (6.3-8.2) L 01/30/18 08:16 Albumin 2.7 g/dL (3.5-5.0) L 01/30/18 08:16 Urine Color Yellow 01/24/18 12:38 Urine Appearance Clear (Clear) 01/24/18 12:38 Urine pH 5.5 (5.0-8.0) 01/24/18 12:38 Ur Specific Boykin 1.009 (1.001-1.035) 01/24/18 12:38 Urine Protein Negative (Negative) 01/24/18 12:38 Urine Glucose (UA) Negative (Negative) 01/24/18 12:38 Urine Ketones Negative (Negative) 01/24/18 12:38 Urine Blood Negative (Negative) 01/24/18 12:38 Urine Nitrite Negative (Negative) 01/24/18 12:38 Urine Bilirubin Negative (Negative) 01/24/18 12:38 Urine Urobilinogen <2.0 mg/dL (<2.0) 01/24/18 12:38 Ur Leukocyte Esterase Small (Negative) H 01/24/18 12:38 Urine WBC 3 /hpf (0-5) 01/24/18 12:38 Ur Squamous Epith Cells <1 /hpf (0-4) 01/24/18 12:38 Urine Bacteria Few /hpf (None) H 01/24/18 12:38 Fluid Source Abdominal 01/25/18 15:30 Fluid Color Brown 01/25/18 15:30 Fluid Appearance Cloudy 01/25/18 15:30 Fluid RBC 0 /uL 01/25/18 15:30 Fluid Nucleated Cells [id number] /uL 01/25/18 15:30 Fluid Polynuclear WBCs 97 % 01/25/18 15:30 Fluid Mononuclear WBCs 3 % 01/25/18 15:30 Body Fluid Glucose Source Abdominal Fluid 01/25/18 15:30 Fluid Glucose 54 mg/dL 01/25/18 15:30 Body Fluid Protein Source Abdominal Fluid 01/25/18 15:30 Fluid Total Protein 3100 mg/dL 01/25/18 15:30 Body Fluid LDH Source Abdominal Fluid 01/25/18 15:30 Fluid LDH >4200 U/L 01/25/18 15:30 Body Fluid Amylase Source Abdominal Fluid 01/25/18 15:30 Fluid Amylase <15 U/L 01/25/18 15:30 C. difficile (EIA) Intrp Negative (Negative) 01/24/18 15:55 Microbiology 01/25/18 15:30 Aspirate Gram Stain - Final 01/25/18 15:30 Aspirate Body Fluid Culture - Final Escherichia coli Enterococcus faecium Assessment and Plan (1) Abdominal abscess Narrative/Plan: t is noted the patient had significant increasing abdominal pain and computed tomography scan showed evidence of increasing fluid collections intra- abdominally. Will have percutaneous drainage of this abscess area today. Interventional radiology. Antimicrobial therapy with Merrem and Eraxis is restarted at this time. Continue ongoing supportive care. Local wound care for now will be saline dressing to the abdominal ulcerations while this workup is in process. May consider restarting the wound VAC during this stay or may consider transitioning this to a collagen silver product. 02/01/2018 reveals the patient to be somewhat improved after the movement of the drainage tube to be intra-abdominal abscess. She's been followed closely by surgery and likely get back to the long-term care facility for ongoing rehab early next week. Have requested a PICC line to be placed for the ongoing antibiotic therapy is needed for this abdominal infection. Doing well with current antibiotic therapy of Merrem and Eraxis which we'll continue for now. Current Visit: Yes Status: Acute Code(s): [id number] - SNOMED Code(s): 33401539
--- NOTE | 2018-02-01 23:55 | PN ---
PROGRESS NOTE DATE OF SERVICE: 02/01/2018 PRESENTING COMPLAINT: Intraabdominal abscess. INTERVAL HISTORY: This is a patient with recent coronary artery bypass followed by ischemic bowel and ileostomy; presented with intraabdominal abscess. Initially drain was placed, then it stopped draining. It was repositioned and is draining well again. The patient did tolerate some diet. Did sit up in a chair for some time. Ileostomy bag is working well. No fever. No chills. REVIEW OF SYSTEMS: Done for constitutional, cardiovascular, GI, pulmonary; relevant findings as above. CURRENT MEDICATIONS: Current medications include IV antifungal and IV meropenem. PHYSICAL EXAMINATION: Temperature 98.5, pulse 72, respiration 16, blood pressure 95/63, pulse ox 97% on room air. GENERAL APPEARANCE: Lying in bed, awake. EYES: Pupils equal. Conjunctivae pale. HEENT: External appearance of nose and ears normal. Oral cavity normal. NECK: JVD not raised. Mass not palpable. RESPIRATORY: Effort normal. LUNGS: Decreased breath sounds. CARDIOVASCULAR: First and second sounds normal. Minimal edema. ABDOMEN: Soft, non-tender. Wound V.A.C. in place. Ileostomy bag with stool in place. Abdominal drain in place. PSYCHIATRY: Alert and oriented x3. Mood and affect normal. INVESTIGATIONS: White count 20.4, hemoglobin 10.2, potassium 3.9. ASSESSMENT: 1. Intraabdominal abscess in a patient with known recent ischemic bowel with abdominal drain in place with cultures growing Escherichia coli and group B Enterococcus faecium. 2. Coronary artery disease, status post coronary artery bypass in November of this year. 3. 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 4. Abdominal wound V.A.C. in place. 5. Paroxysmal atrial fibrillation, currently in sinus rhythm, on Eliquis. 6. Peripheral artery disease. 7. Hypothyroidism. 8. Diabetes mellitus, type 2. 9. Chronic low back pain from arthritis. 10.Depression not otherwise specified. 11.Hyperlipidemia. 12.Moderate protein-calorie malnutrition from decreased oral intake. 13.Left pleural effusion, post-surgical. 14.Essential hypertension. PLAN: Care was discussed with the patient and her at the bedside. White count has started to come down. Continue with antibiotics. Tentatively looking at patient going back to the ECF on Monday if everything is fine. PICC line has been ordered by ID. MMODL / IJNaina: [id number] /
[2018-02-02] MEDS: MEROPENEM 2 GM in SODIUM CHLORIDE 0.9% 100 ML IVPB SCH ×3 (00:20→15:10)
[2018-02-02] MEDS: HEPARIN SODIUM,PORCINE 5,000 UNIT/ML 1 ML VIAL SQ SCH ×3 (00:21→15:10)
[2018-02-02] MEDS: LEVOTHYROXINE 75 MCG TAB PO SCH (06:21)
[2018-02-02] MEDS: IPRATROPIUM-ALBUTEROL 3 ML NEB INHALATION SCH ×4 (08:01→20:04)
[2018-02-02] MEDS: POTASSIUM CHLORIDE ER 20 MEQ TAB.ER PO SCH (08:15)
[2018-02-02] MEDS: ASPIRIN 81 MG PO SCH (08:15)
[2018-02-02] MEDS: DULoxetine HCL 60 MG CAPSULE.DR PO SCH (08:15)
[2018-02-02] MEDS: LOSARTAN 25 MG TAB PO SCH (08:15)
[2018-02-02] MEDS: METOPROLOL TARTRATE 25 MG TAB PO SCH ×2 (08:16→20:39)
[2018-02-02] MEDS: ASCORBIC ACID 500 MG TAB PO SCH (08:16)
[2018-02-02] MEDS: FUROSEMIDE 40 MG TAB PO SCH ×2 (08:16→15:11)
[2018-02-02] MEDS: AMIODARONE 100 MG TAB PO SCH (08:16)
[2018-02-02] MEDS: PANTOPRAZOLE 40 MG TABLET PO SCH (08:16)
[2018-02-02 08:31] LABS: Anisocytosis Slight; Basophils # (A) 0.2 k/uL (0-0.2); Basophils % (A) 1 %; Eosinophils # (A) 1.3 k/uL (0-0.7); Eosinophils % (A) 8 %; HCT 31.8 % (34.0-46.0); HGB 10.1 gm/dL (11.4-16.0); Hypochromasia Moderate; INR 1.1 (<1.2); Lymphocytes # (A) 1.7 k/uL (1.0-4.8); Lymphocytes % (A) 9 %; MCH 25.3 pg (25.0-35.0); MCHC 31.7 g/dL (31.0-37.0); MCV 79.7 fL (80.0-100.0); Mean Platelet Volume 6.5; Microcytosis Slight; Monocytes # (A) 0.7 k/uL (0-1.0); Monocytes % (A) 4 %; Neutrophils # (A) 13.6 k/uL (1.3-7.7); Neutrophils % (A) 77 %; Platelet Count 655 k/uL (150-450); Poikilocytosis Slight; Prothrombin Time 10.6 sec (9.0-12.0); RDW 16.8 % (11.5-15.5); WBC 17.8 k/uL (3.8-10.6)
[2018-02-02 08:40] LABS: Anion Gap 8 mmol/L; Blood Urea Nitrogen 13 mg/dL (7-17); Calcium 9.5 mg/dL (8.4-10.2); Carbon Dioxide 27 mmol/L (22-30); Chloride 98 mmol/L (98-107); Glucose 116 mg/dL (74-99); Potassium 3.9 mmol/L (3.5-5.1); Sodium 133 mmol/L (137-145)
--- NOTE | 2018-02-02 10:59 | P.PN ---
<Missy Baca - Last Filed: 02/02/18 10:55> Subjective Progress Note Date: 02/02/18 72year-old female seen sitting up in a chair patient to have a PICC line placed today patient did have percutaneous drain by interventional radiology placed for the intra abdominal abscess scant amount of drainage noted in the drainage bag abdomen nondistended surgical dressing dry moderate amount of brown stool from the ostomy the white count this morning is down to 17.8. 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 Recent coronary artery disease involving the left main coronary artery 4 done on 12/11/2017 Status post replacement of percutaneous drain January 31 for an right side abdominal abscess Objective - Vital Signs Vital signs: Vital Signs Temp 97.8 F 02/02/18 07:00 Pulse 76 02/02/18 07:00 Resp 18 02/02/18 07:00 BP 103/70 02/02/18 07:00 Pulse Ox 100 02/02/18 07:00 Intake & Output 02/01/18 02/02/18 02/02/18 18:59 06:59 18:59 Intake Total 200 500 Output Total 400 500 Balance -200 0 Weight 73.5 kg Intake: Oral 200 500 Output: Stool 500 Urine/Stool Mix 400 Other: Voiding Method Diaper Diaper Diaper Incontinent Incontinent Incontinent # Voids 2 2 - Exam Physical exam 72-year-old female sitting up in a chair appears in no acute distress scheduled this morning for PICC line to be placed Lungs adequate air movement bilaterally on room air sats are 96% no shortness of breath noted Heart S1 and S2 audible regular Abdomen ostomy moderate amount of brown stool in the ostomy bag soft nondistended nontender surgical dressing dry drain in place right flank approximately 10 mL in drainage bag Extremities a trace pedal edema bilaterally - Labs CBC & Chem 7: 02/02/18 08:03 02/02/18 08:03 Labs: Abnormal Lab Results - Last 24 Hours (Table) 02/02/18 02/02/18 Range/Units 08:03 08:03 WBC 17.8 H (3.8-10.6) k/uL Hgb 10.1 L (11.4-16.0) gm/dL Hct 31.8 L (34.0-46.0) % MCV 79.7 L (80.0-100.0) fL RDW 16.8 H (11.5-15.5) % Plt Count 655 H (150-450) k/uL Neutrophils # 13.6 H (1.3-7.7) k/uL Eosinophils # 1.3 H (0-0.7) k/uL Sodium 133 L (137-145) mmol/L Glucose 116 H (74-99) mg/dL Assessment and Plan Assessment: Impression Present on admission generalized weakness loss of appetite vomiting unintentional weight loss 20 pounds unclear etiology Present on admission leukocytosis 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 coronary artery disease involving the left main coronary artery Preserved left ventricular function paroxysmal atrial fibrillation EKG on admission sinus rhythm Recent December 11 quadruple coronary artery bypass grafting Debility Status post successful ultrasound-guided right abdominal abscess drainage catheter insertion per interventional radiology Leukocytosis persist Plan Schedule PICC line today Defer to medicine to address medical issues DVT and GI prophylaxis Will follow with you Continue recommendations by infectious disease Local wound care per infectious disease saline dressings to the abdominal incision Evaluate and manage percutaneous drainage tube catheter with dressing change every 7 days or as needed Repeat labs in the morning Anticipate transfer back to ECF facility in the next 72 hours Progress note dictated for Dr. granger rounding on behalf of dr malcolm The above impression and plan of care have been discussed and directed by signing physician. Missy Baca nurse practitioner acting as scribe for signing physician. <Adalid Granger - Last Filed: 02/02/18 13:24> Objective - Vital Signs Vital signs: Vital Signs Temp 97.8 F 02/02/18 07:00 Pulse 76 02/02/18 07:00 Resp 18 02/02/18 07:00 BP 103/70 02/02/18 07:00 Pulse Ox 100 02/02/18 07:00 Intake & Output 02/01/18 02/02/18 02/02/18 18:59 06:59 18:59 Intake Total 200 500 Output Total 400 500 Balance -200 0 Weight 73.5 kg Intake: Oral 200 500 Output: Stool 500 Urine/Stool Mix 400 Other: Voiding Method Diaper Diaper Diaper Incontinent Incontinent Incontinent # Voids 2 2 1 - Labs CBC & Chem 7: 02/02/18 08:03 02/02/18 08:03 Labs: Abnormal Lab Results - Last 24 Hours (Table) 02/02/18 02/02/18 Range/Units 08:03 08:03 WBC 17.8 H (3.8-10.6) k/uL Hgb 10.1 L (11.4-16.0) gm/dL Hct 31.8 L (34.0-46.0) % MCV 79.7 L (80.0-100.0) fL RDW 16.8 H (11.5-15.5) % Plt Count 655 H (150-450) k/uL Neutrophils # 13.6 H (1.3-7.7) k/uL Eosinophils # 1.3 H (0-0.7) k/uL Sodium 133 L (137-145) mmol/L Glucose 116 H (74-99) mg/dL Assessment and Plan Assessment: As above. Patient doing better today. PICC line being placed today. Continue liquid diet. Continue physical therapy. (1) Abdominal abscess Current Visit: Yes Status: Acute Code(s): [id number] - SNOMED Code(s): 29687057
[2018-02-02] MEDS ORDERED: LIDOCAINE 1% INJ 10MG/ML (20 ML MDV) ONE (11:52)
[2018-02-02] MEDS: ANIDULAFUNGIN 100 MG in SODIUM CHLORIDE 0.9% 100 ML IVPB SCH (12:20)
[2018-02-02] MEDS: CYANOCOBALAMIN 500 MCG TAB PO SCH (12:20)
--- NOTE | 2018-02-02 14:13 | IR ---
EXAMINATION TYPE: IR cvc insert >=5 years DATE OF EXAM: 02/02/2018 COMPARISON: NONE CLINICAL HISTORY: Infection Needs long-term intravenous access for antibiotics. PROCEDURE: After informed consent, the skin overlying the left basilic vein was localized with ultrasound and no radha to be compressible and patent. An ultrasound image was obtained and submitted on the patient's c red. The overlying skin was prepped and draped and Lidocaine was used for local anesthesia. A skin elizabeth was made with a scalpel. Access was gained to the vein under ultrasound guidance with a 21 gau ge needle and a 0.018 inch wire was advanced. Access site was dilated with Peel-Away sheath and cath eter tailored to the appropriate length and advanced such that the distal tip is at the cavoatrial ju nction. Spot image was obtained verifying placement. Catheter was fixed to the skin and a sterile d ressing was placed following hemostasis. Catheter was aspirated and flushed with saline. Patient wa s discharged in stable condition without complication.Maximal barrier technique is utilized. Ultraso und image is documented on the chart. Ultrasound used with sterile technique. Fluoro time and fluoroscopic images submitted to document procedure: 0.3 minutes fluoroscopy time, 16 5 intraoperative images IMPRESSION: STATUS POST ULTRASOUND AND FLUOROSCOPIC GUIDED PICC LINE PLACEMENT, READY FOR USE. THIS PROCEDURE WAS PERFORMED BY THE UNDERSIGNED.
[2018-02-02] MEDS: ATORVASTATIN 40 MG TAB PO SCH (20:39)
--- NOTE | 2018-02-02 22:29 | PN ---
PROGRESS NOTE DATE OF SERVICE: 02/02/2018 PRESENTING COMPLAINT: Intraabdominal abscess. INTERVAL HISTORY: This is a patient with recent coronary artery bypass followed by ischemic bowel and an ileostomy who presented with intraabdominal abscess. Initially the drain was placed by Radiology, then it stopped draining. It was repositioned 2 days ago and is draining well again. The patient is going for PICC line placement today. Comfortable sitting up. Tolerating some diet. Ileostomy bag is working. REVIEW OF SYSTEMS: Done for constitutional, cardiovascular, GI, pulmonary; relevant findings as above. CURRENT MEDICATIONS: Reviewed. They include IV meropenem and antifungal. PHYSICAL EXAMINATION: Temperature 97.8, pulse 76, respiration 18, blood pressure 103/70, pulse 100% on room air. GENERAL APPEARANCE: Lying in bed, comfortable. EYES: Pupils equal. Conjunctivae pale. HEENT: External appearance of nose and ears normal. Oral cavity normal. NECK: JVD not raised. Mass not palpable. RESPIRATORY: Effort normal. LUNGS: Decreased breath sounds. CARDIOVASCULAR: First and second sounds normal. Minimal edema. ABDOMEN: Soft, nontender. Wound V.A.C. in place. Ileostomy bag in place. Abdominal drain in place. PSYCHIATRY: Alert and oriented x3. Mood and affect normal. INVESTIGATIONS: White count 17.8, hemoglobin 10.1, potassium 3.9. ASSESSMENT: 1. Intraabdominal abscess in a patient with known recent ischemic bowel with abdominal drain in place with cultures growing Escherichia coli and group B Enterococcus faecium with clinical improvement and white count starting to come down. 2. Coronary artery disease, status post coronary artery bypass in November of this year. 3. Ischemic bowel perforation with right transverse colectomy and ileostomy from last admission. 4. Abdominal wound V.A.C. in place. 5. Paroxysmal atrial fibrillation, currently in sinus rhythm on Eliquis. 6. Peripheral arterial disease. 7. Hypothyroidism. 8. Diabetes mellitus, type 2. 9. Chronic low back pain from arthritis. 10.Depression not otherwise specified. 11.Hyperlipidemia. 12.Moderate protein-calorie malnutrition from decreased oral intake. 13.Left pleural effusion, post-surgical. 14.Essential hypertension. PLAN: Continue current medication and treatment plan. Looking at patient going to the [facility] Monday. PICC line being placed today. MMODL / IJN: [id number] /
--- NOTE | 2018-02-02 23:37 | P.PN ---
Subjective Progress Note Date: 02/02/18 It is noted the patient had significant increasing abdominal pain and computed tomography scan showed evidence of increasing fluid collections intra- abdominally. Will have percutaneous drainage of this abscess area today. Interventional radiology. Antimicrobial therapy with Merrem and Eraxis is restarted at this time. Continue ongoing supportive care. Local wound care for now will be saline dressing to the abdominal ulcerations while this workup is in process. 01/29/2018 is following with surgery. Follow-up computed tomography scan has been requested to help determine next step and outpatient therapy. 02/01/2018 reveals the patient to be feeling somewhat better after the new drain placement by interventional radiology for the ongoing intra-abdominal abscess. Her pain is under good control and is anxious to get back to rehab. 02/02/2018 patient continues to have some improvement with the placement of the new drain. We'll likely go back to rehab on Monday once her has been further stability of her status. Objective - Vital Signs Vital signs: Vital Signs Temp 97.0 F L 02/02/18 15:00 Pulse 79 02/02/18 20:46 Resp 16 02/02/18 20:46 BP 100/70 02/02/18 20:46 Pulse Ox 97 02/02/18 20:46 Intake & Output 02/02/18 02/02/18 02/03/18 06:59 18:59 06:59 Intake Total 500 200 Output Total 500 30 Balance 0 170 Weight 73.5 kg Intake: Oral 500 200 Output: Drainage 30 Right Abdomen 30 Stool 500 Other: Voiding Method Diaper Diaper Incontinent Incontinent # Voids 2 2 0 - Exam Gen: This is a 72-year-old female. she is supine in bed and appears to be comfortable and in no acute distress. HEENT: Head is atraumatic, normocephalic. Pupils equal, round. Sclerae is anicteric. Mucous members of the mouth are slightly dry. NECK: Supple. No JVD. No lymphadenopathy. No thyromegaly. LUNGS: Clear to auscultation. No wheezes or rhonchi. No intercostal retractions. HEART: Regular rate and rhythm. No murmur. Sternal wound is intact. No significant drainage, erythema.chest wall wound midsternal is healed with no signs of infection. ABDOMEN: ileostomy in place in the right side with brown stool. Bowel sounds are present. Wound has the dressing in place without difficulties, the drain has evidence of purulent material. EXTREMITIES: No pedal edema. Wound and left lower extremity shows no signs of infection. No drainage, significant erythema or edema.dorsalis pedis 1+ bilaterally. NEUROLOGICAL: Patient is awake alert and interactive with no focal neural deficits. \ - Labs CBC & Chem 7: 02/02/18 08:03 02/02/18 08:03 Labs: Abnormal Lab Results - Last 24 Hours (Table) 02/02/18 02/02/18 Range/Units 08: 08:03 WBC 17.8 H (3.8-10.6) k/uL Hgb 10.1 L (11.4-16.0) gm/dL Hct 31.8 L (34.0-46.0) % MCV 79.7 L (80.0-100.0) fL RDW 16.8 H (11.5-15.5) % Plt Count 655 H (150-450) k/uL Neutrophils # 13.6 H (1.3-7.7) k/uL Eosinophils # 1.3 H (0-0.7) k/uL Sodium 133 L (137-145) mmol/L Glucose 116 H (74-99) mg/dL Laboratory Results WBC 17.8 k/uL (3.8-10.6) H 02/02/18 08:03 RBC 4.00 m/uL (3.80-5.40) 02/02/18 08:03 Hgb 10.1 gm/dL (11.4-16.0) L 02/02/18 08:03 Hct 31.8 % (34.0-46.0) L 02/02/18 08:03 MCV 79.7 fL (80.0-100.0) L 02/02/18 08:03 MCH 25.3 pg (25.0-35.0) 02/02/18 08:03 MCHC 31.7 g/dL (31.0-37.0) 02/02/18 08:03 RDW 16.8 % (11.5-15.5) H 02/02/18 08:03 Plt Count 655 k/uL (150-450) H 02/02/18 08:03 Neutrophils % 77 % 02/02/18 08:03 Lymphocytes % 9 % 02/02/18 08:03 Monocytes % 4 % 02/02/18 08:03 Eosinophils % 8 % 02/02/18 08:03 Basophils % 1 % 02/02/18 08:03 Neutrophils # 13.6 k/uL (1.3-7.7) H 02/02/18 08:03 Lymphocytes # 1.7 k/uL (1.0-4.8) 02/02/18 08:03 Monocytes # 0.7 k/uL (0-1.0) 02/02/18 08:03 Eosinophils # 1.3 k/uL (0-0.7) H 02/02/18 08:03 Basophils # 0.2 k/uL (0-0.2) 02/02/18 08:03 Hypochromasia Moderate 02/02/18 08:03 Poikilocytosis Slight 02/02/18 08:03 Anisocytosis Slight 02/02/18 08:03 Microcytosis Slight 02/02/18 08:03 PT 10.6 sec (9.0-12.0) 02/02/18 08:03 INR 1.1 (<1.2) 02/02/18 08:03 APTT 29.2 sec (22.0-30.0) 01/24/18 12:07 Sodium 133 mmol/L (137-145) L 02/02/18 08:03 Potassium 3.9 mmol/L (3.5-5.1) 02/02/18 08:03 Chloride 98 mmol/L (98-107) 02/02/18 08:03 Carbon Dioxide 27 mmol/L (22-30) 02/02/18 08:03 Anion Gap 8 mmol/L 02/02/18 08:03 BUN 13 mg/dL (7-17) 02/02/18 08:03 Creatinine 0.58 mg/dL (0.52-1.04) 02/02/18 08:03 Est GFR (CKD-EPI)AfAm >90 (>60 ml/min/1.73 sqM) 02/02/18 08:03 Est GFR (CKD-EPI)NonAf >90 (>60 ml/min/1.73 sqM) 02/02/18 08:03 Glucose 116 mg/dL (74-99) H 02/02/18 08:03 Lactic Ac Sepsis Rflx Y 01/24/18 12:40 Plasma Lactic Acid [place] 1.9 mmol/L (0.7-2.0) 01/24/18 16:02 Calcium 9.5 mg/dL (8.4-10.2) 02/02/18 08:03 Magnesium 1.7 mg/dL (1.6-2.3) 01/24/18 12:07 Total Bilirubin 0.3 mg/dL (0.2-1.3) 01/30/18 08:16 AST 25 U/L (14-36) 01/30/18 08:16 ALT 23 U/L (9-52) 01/30/18 08:16 Alkaline Phosphatase 410 U/L (38-126) H 01/30/18 08:16 Total Creatine Kinase <20 U/L (30-135) L 01/24/18 12:07 CK-MB (CK-2) 0.3 ng/mL (0.0-2.4) 01/24/18 12:07 CK-MB (CK-2) Rel Index 01/24/18 12:07 Troponin I <0.012 ng/mL (0.000-0.034) 01/24/18 12:07 Total Protein 6.0 g/dL (6.3-8.2) L 01/30/18 08:16 Albumin 2.7 g/dL (3.5-5.0) L 01/30/18 08:16 Urine Color Yellow 01/24/18 12:38 Urine Appearance Clear (Clear) 01/24/18 12:38 Urine pH 5.5 (5.0-8.0) 01/24/18 12:38 Ur Specific [place] 1.009 (1.001-1.035) 01/24/18 12:38 Urine Protein Negative (Negative) 01/24/18 12:38 Urine Glucose (UA) Negative (Negative) 01/24/18 12:38 Urine Ketones Negative (Negative) 01/24/18 12:38 Urine Blood Negative (Negative) 01/24/18 12:38 Urine Nitrite Negative (Negative) 01/24/18 12:38 Urine Bilirubin Negative (Negative) 01/24/18 12:38 Urine Urobilinogen <2.0 mg/dL (<2.0) 01/24/18 12:38 Ur Leukocyte Esterase Small (Negative) H 01/24/18 12:38 Urine WBC 3 /hpf (0-5) 01/24/18 12:38 Ur Squamous Epith Cells <1 /hpf (0-4) 01/24/18 12:38 Urine Bacteria Few /hpf (None) H 01/24/18 12:38 Fluid Source Abdominal 01/25/18 15:30 Fluid Color Brown 01/25/18 15:30 Fluid Appearance Cloudy 01/25/18 15:30 Fluid RBC 0 /uL 01/25/18 15:30 Fluid Nucleated Cells [id number] /uL 01/25/18 15:30 Fluid Polynuclear WBCs 97 % 01/25/18 15:30 Fluid Mononuclear WBCs 3 % 01/25/18 15:30 Body Fluid Glucose Source Abdominal Fluid 01/25/18 15:30 Fluid Glucose 54 mg/dL 01/25/18 15:30 Body Fluid Protein Source Abdominal Fluid 01/25/18 15:30 Fluid Total Protein 3100 mg/dL 01/25/18 15:30 Body Fluid LDH Source Abdominal Fluid 01/25/18 15:30 Fluid LDH >4200 U/L 01/25/18 15:30 Body Fluid Amylase Source Abdominal Fluid 01/25/18 15:30 Fluid Amylase <15 U/L 01/25/18 15:30 C. difficile (EIA) Intrp Negative (Negative) 01/24/18 15:55 Microbiology 01/25/18 15:30 Aspirate Gram Stain - Final 01/25/18 15:30 Aspirate Body Fluid Culture - Final Escherichia coli Enterococcus faecium Assessment and Plan (1) Abdominal abscess Narrative/Plan: t is noted the patient had significant increasing abdominal pain and computed tomography scan showed evidence of increasing fluid collections intra- abdominally. Will have percutaneous drainage of this abscess area today. Interventional radiology. Antimicrobial therapy with Merrem and Eraxis is restarted at this time. Continue ongoing supportive care. Local wound care for now will be saline dressing to the abdominal ulcerations while this workup is in process. May consider restarting the wound VAC during this stay or may consider transitioning this to a collagen silver product. 02/01/2018 reveals the patient to be somewhat improved after the movement of the drainage tube to be intra-abdominal abscess. She's been followed closely by surgery and likely get back to the long-term care facility for ongoing rehab early next week. Have requested a PICC line to be placed for the ongoing antibiotic therapy is needed for this abdominal infection. Doing well with current antibiotic therapy of Merrem and Eraxis which we'll continue for now. 02/02/2018 shows ongoing improvement after the recent replacement of the intra- abdominal drain tube for the abscess. Pain is under good control. Would continue meropenem and Eraxis at this point in time. Follow-up imaging will determine the overall length of antibiotic therapy, hopefully with the replacement of the drain there will be rapid resolution of the abscess. Current Visit: Yes Status: Acute Code(s): [id number] - SNOMED Code(s): 72906148
[2018-02-03] MEDS: MEROPENEM 2 GM in SODIUM CHLORIDE 0.9% 100 ML IVPB SCH ×3 (01:24→16:02)
[2018-02-03] MEDS: METOPROLOL TARTRATE 25 MG TAB PO SCH ×3 (01:24→20:55)
[2018-02-03] MEDS: HEPARIN SODIUM,PORCINE 5,000 UNIT/ML 1 ML VIAL SQ SCH ×3 (01:25→16:02)
[2018-02-03] MEDS: LEVOTHYROXINE 75 MCG TAB PO SCH (06:44)
[2018-02-03] MEDS: IPRATROPIUM-ALBUTEROL 3 ML NEB INHALATION SCH ×4 (07:39→20:10)
[2018-02-03] MEDS: FUROSEMIDE 40 MG TAB PO SCH ×2 (08:24→16:02)
[2018-02-03] MEDS: DULoxetine HCL 60 MG CAPSULE.DR PO SCH (08:24)
[2018-02-03] MEDS: ASCORBIC ACID 500 MG TAB PO SCH (08:24)
[2018-02-03] MEDS: PANTOPRAZOLE 40 MG TABLET PO SCH (08:24)
[2018-02-03] MEDS: AMIODARONE 100 MG TAB PO SCH (08:24)
[2018-02-03] MEDS: LOSARTAN 25 MG TAB PO SCH (08:24)
[2018-02-03] MEDS: POTASSIUM CHLORIDE ER 20 MEQ TAB.ER PO SCH (08:24)
[2018-02-03] MEDS: CYANOCOBALAMIN 500 MCG TAB PO SCH (08:24)
[2018-02-03] MEDS: ASPIRIN 81 MG PO SCH (08:47)
[2018-02-03 09:06] LABS: Anisocytosis Slight; Basophils # (A) 0.2 k/uL (0-0.2); Basophils % (A) 1 %; Eosinophils # (A) 1.7 k/uL (0-0.7); Eosinophils % (A) 9 %; HCT 30.9 % (34.0-46.0); HGB 10.4 gm/dL (11.4-16.0); Hypochromasia Slight; Lymphocytes # (A) 1.9 k/uL (1.0-4.8); Lymphocytes % (A) 11 %; MCH 26.3 pg (25.0-35.0); MCHC 33.5 g/dL (31.0-37.0); MCV 78.5 fL (80.0-100.0); Mean Platelet Volume 6.6; Microcytosis Slight; Monocytes # (A) 0.8 k/uL (0-1.0); Monocytes % (A) 4 %; Neutrophils # (A) 13.5 k/uL (1.3-7.7); Neutrophils % (A) 73 %; Platelet Count 597 k/uL (150-450); Poikilocytosis Slight; RBC 3.94 m/uL (3.80-5.40); WBC 18.4 k/uL (3.8-10.6)
[2018-02-03 09:23] LABS: Anion Gap 11 mmol/L; Blood Urea Nitrogen 12 mg/dL (7-17); Calcium 9.3 mg/dL (8.4-10.2); Carbon Dioxide 28 mmol/L (22-30); Chloride 94 mmol/L (98-107); Glucose 162 mg/dL (74-99); Potassium 3.5 mmol/L (3.5-5.1); Sodium 133 mmol/L (137-145)
[2018-02-03] MEDS: ANIDULAFUNGIN 100 MG in SODIUM CHLORIDE 0.9% 100 ML IVPB SCH (12:16)
--- NOTE | 2018-02-03 12:47 | P.PN ---
Subjective Progress Note Date: 02/03/18 CHIEF COMPLAINT: Abdominal wall wound HISTORY OF PRESENT ILLNESS: The patient is a 72-year-old female with complicated history including ischemic colitis and bowel resection. She has a complicated history from the cardiac standpoint. No reports abdominal pain. She is tolerating diet. PHYSICAL EXAM: VITAL SIGNS: Currently stable. GENERAL: Well-developed in no acute distress. HEENT: No sclera icterus. Extraocular movements grossly intact. Moist buccal mucosa. Head is atraumatic, normocephalic. Hears conversational speech. No nasal drainage. NECK: Supple without lymphadenopathy. CHEST: Non-labored respirations and equal bilateral excursions. CARDIOVASCULAR: Regular rate with regular rhythm. ABDOMEN: Dressing clean dry and intact. No signs of cellulitis. MUSCULOSKELETAL: No clubbing, cyanosis or edema. NEUROLOGIC: No focal or lateralizing signs. Cranial nerves II through XII grossly intact. PSYCH: Alert and oriented to person, place and time. SKIN: Well perfused. Good skin turgor. LABS: Reviewed ASSESSMENT: 1. Surgical wound infection with history of ischemic colitis PLAN: 1. Dressing pending to be changed. Otherwise clinically stable. 2. No acute surgical intervention needed at this time. 3. Continue IV antibiotics Objective - Vital Signs Vital signs: Vital Signs Temp 97.4 F L 02/03/18 07:00 Pulse 81 02/03/18 07:00 Resp 20 02/03/18 07:00 BP 114/68 02/03/18 07:00 Pulse Ox 97 02/03/18 07:00 Intake & Output 02/02/18 02/03/18 02/03/18 18:59 06:59 18:59 Intake Total 200 775 200 Output Total 30 300 30 Balance 170 475 170 Weight 71.5 kg Intake: Oral 200 775 200 Output: Drainage 30 30 Right Abdomen 30 30 Stool 300 Other: Voiding Method Diaper Diaper Incontinent Incontinent # Voids 2 6 2 # Bowel Movements 0 - Labs CBC & Chem 7: 02/03/18 08:23 02/03/18 08:23 Labs: Abnormal Lab Results - Last 24 Hours (Table) 02/03/18 02/03/18 Range/Units 08:23 08:23 WBC 18.4 H (3.8-10.6) k/uL Hgb 10.4 L (11.4-16.0) gm/dL Hct 30.9 L (34.0-46.0) % MCV 78.5 L (80.0-100.0) fL RDW 17.0 H (11.5-15.5) % Plt Count 597 H (150-450) k/uL Neutrophils # 13.5 H (1.3-7.7) k/uL Eosinophils # 1.7 H (0-0.7) k/uL Sodium 133 L (137-145) mmol/L Chloride 94 L (98-107) mmol/L Glucose 162 H (74-99) mg/dL
--- NOTE | 2018-02-03 18:24 | PN ---
PROGRESS NOTE DATE OF SERVICE: 02/03/2018 PRESENTING COMPLAINT: Intraabdominal abscess. INTERVAL HISTORY: This is a patient with recent coronary artery bypass followed by ischemic bowel and ileostomy. She presented with intraabdominal abscess. Patient had a PICC line placed yesterday and abdominal drain is draining well; about 30 mL overnight. No nausea. Did tolerate some diet. Will be sitting up on a chair. No abdominal pain. Ileostomy bag is working. REVIEW OF SYSTEMS: Done for constitutional, cardiovascular, GI, pulmonary; relevant findings as above. CURRENT MEDICATIONS: Reviewed. They include IV meropenem and IV antifungal. PHYSICAL EXAMINATION: Temperature 96.6, pulse 75, respiration 18, blood pressure 115/53, pulse ox 96% on room air. GENERAL APPEARANCE: Lying in bed. Awake. EYES: Pupils equal. Conjunctivae normal. HEENT: External appearance of nose and ears normal. Oral cavity normal. NECK: JVD not raised. Mass not palpable. RESPIRATORY: Effort normal. LUNGS: Decreased breath sounds. CARDIOVASCULAR: First and second sounds normal. Some edema. ABDOMEN: Soft, non-tender. Wound V.A.C. in place. Ileostomy bag in place. Abdominal drain in place. PSYCHIATRY: Alert and oriented x3. Mood and affect normal. INVESTIGATIONS: White count 18.4, hemoglobin 10.4, potassium 3.5. ASSESSMENT: 1. Intraabdominal abscess in a patient with known recent ischemic bowel and abdominal drain in place; cultures are growing Escherichia coli and group B Enterococcus faecium; with clinical response. 2. Coronary artery disease, status post coronary artery bypass in November. 3. 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 4. Abdominal wound V.A.C. in place. 5. Paroxysmal atrial fibrillation, currently in sinus rhythm on Eliquis. 6. Peripheral arterial disease. 7. Hypothyroidism. 8. Diabetes mellitus, type 2. 9. Chronic low back pain from arthritis. 10.Depression not otherwise specified. 11.Hyperlipidemia. 12.Moderate protein-calorie malnutrition from decreased oral intake. 13.Essential hypertension. PLAN: Continue current medication and treatment plan. Care was discussed with the patient. Looking at possibly Monday going back. MMODL / IJN: [id number] /
[2018-02-03] MEDS: ATORVASTATIN 40 MG TAB PO SCH (20:45)
--- NOTE | 2018-02-03 23:27 | P.PN ---
Subjective Progress Note Date: 02/03/18 It is noted the patient had significant increasing abdominal pain and computed tomography scan showed evidence of increasing fluid collections intra- abdominally. Will have percutaneous drainage of this abscess area today. Interventional radiology. Antimicrobial therapy with Merrem and Eraxis is restarted at this time. Continue ongoing supportive care. Local wound care for now will be saline dressing to the abdominal ulcerations while this workup is in process. 01/29/2018 is following with surgery. Follow-up computed tomography scan has been requested to help determine next step and outpatient therapy. 02/01/2018 reveals the patient to be feeling somewhat better after the new drain placement by interventional radiology for the ongoing intra-abdominal abscess. Her pain is under good control and is anxious to get back to rehab. 02/02/2018 patient continues to have some improvement with the placement of the new drain. We'll likely go back to rehab on Monday once her has been further stability of her status. 02/03/2018 patient has further improvement. Looks forward to going to rehab. Objective - Vital Signs Vital signs: Vital Signs Temp 96.6 F L 02/03/18 14:34 Pulse 75 02/03/18 14:34 Resp 18 02/03/18 14:34 BP 115/53 02/03/18 14:34 Pulse Ox 96 02/03/18 14:34 Intake & Output 02/03/18 02/03/18 02/04/18 06:59 18:59 06:59 Intake Total 775 700 Output Total 300 45 Balance 475 655 Weight 71.5 kg Intake: IV 200 Anidulafungin 100 mg In 100 Sodium Chloride 0.9% 100 ml @ 84 mls/hr IVPB DAILY @1200 [facility] Rx#:[id number] Meropenem 2 gm In Sodium 100 Chloride 0.9% 100 ml @ 200 mls/hr IVPB Q8HR [facility] Rx#:[id number] Oral 775 500 Output: Drainage 45 Right Abdomen 45 Stool 300 Other: Voiding Method Diaper Incontinent # Voids 6 2 # Bowel Movements 0 0 - Exam Gen: This is a 72-year-old female. she is supine in bed and appears to be comfortable and in no acute distress. HEENT: Head is atraumatic, normocephalic. Pupils equal, round. Sclerae is anicteric. Mucous members of the mouth are slightly dry. NECK: Supple. No JVD. No lymphadenopathy. No thyromegaly. LUNGS: Clear to auscultation. No wheezes or rhonchi. No intercostal retractions. HEART: Regular rate and rhythm. No murmur. Sternal wound is intact. No significant drainage, erythema.chest wall wound midsternal is healed with no signs of infection. ABDOMEN: ileostomy in place in the right side with brown stool. Bowel sounds are present. Wound has the dressing in place without difficulties, the drain has evidence of purulent material. EXTREMITIES: No pedal edema. Wound and left lower extremity shows no signs of infection. No drainage, significant erythema or edema.dorsalis pedis 1+ bilaterally. NEUROLOGICAL: Patient is awake alert and interactive with no focal neural deficits. \ - Labs CBC & Chem 7: 02/03/18 08:23 02/03/18 08:23 Labs: Abnormal Lab Results - Last 24 Hours (Table) 02/03/18 02/03/18 Range/Units 08: 08:23 WBC 18.4 H (3.8-10.6) k/uL Hgb 10.4 L (11.4-16.0) gm/dL Hct 30.9 L (34.0-46.0) % MCV 78.5 L (80.0-100.0) fL RDW 17.0 H (11.5-15.5) % Plt Count 597 H (150-450) k/uL Neutrophils # 13.5 H (1.3-7.7) k/uL Eosinophils # 1.7 H (0-0.7) k/uL Sodium 133 L (137-145) mmol/L Chloride 94 L (98-107) mmol/L Glucose 162 H (74-99) mg/dL Laboratory Results WBC 18.4 k/uL (3.8-10.6) H 02/03/18 08:23 RBC 3.94 m/uL (3.80-5.40) 02/03/18 08:23 Hgb 10.4 gm/dL (11.4-16.0) L 02/03/18 08:23 Hct 30.9 % (34.0-46.0) L 02/03/18 08:23 MCV 78.5 fL (80.0-100.0) L 02/03/18 08:23 MCH 26.3 pg (25.0-35.0) 02/03/18 08:23 MCHC 33.5 g/dL (31.0-37.0) 02/03/18 08:23 RDW 17.0 % (11.5-15.5) H 02/03/18 08:23 Plt Count 597 k/uL (150-450) H 02/03/18 08:23 Neutrophils % 73 % 02/03/18 08:23 Lymphocytes % 11 % 02/03/18 08:23 Monocytes % 4 % 02/03/18 08:23 Eosinophils % 9 % 02/03/18 08:23 Basophils % 1 % 02/03/18 08:23 Neutrophils # 13.5 k/uL (1.3-7.7) H 02/03/18 08:23 Lymphocytes # 1.9 k/uL (1.0-4.8) 02/03/18 08:23 Monocytes # 0.8 k/uL (0-1.0) 02/03/18 08:23 Eosinophils # 1.7 k/uL (0-0.7) H 02/03/18 08:23 Basophils # 0.2 k/uL (0-0.2) 02/03/18 08:23 Hypochromasia Slight 02/03/18 08:23 Poikilocytosis Slight 02/03/18 08:23 Anisocytosis Slight 02/03/18 08:23 Microcytosis Slight 02/03/18 08:23 PT 10.6 sec (9.0-12.0) 02/02/18 08:03 INR 1.1 (<1.2) 02/02/18 08:03 APTT 29.2 sec (22.0-30.0) 01/24/18 12:07 Sodium 133 mmol/L (137-145) L 02/03/18 08:23 Potassium 3.5 mmol/L (3.5-5.1) 02/03/18 08:23 Chloride 94 mmol/L (98-107) L 02/03/18 08:23 Carbon Dioxide 28 mmol/L (22-30) 02/03/18 08:23 Anion Gap 11 mmol/L 02/03/18 08:23 BUN 12 mg/dL (7-17) 02/03/18 08:23 Creatinine 0.56 mg/dL (0.52-1.04) 02/03/18 08:23 Est GFR (CKD-EPI)AfAm >90 (>60 ml/min/1.73 sqM) 02/03/18 08:23 Est GFR (CKD-EPI)NonAf >90 (>60 ml/min/1.73 sqM) 02/03/18 08:23 Glucose 162 mg/dL (74-99) H 02/03/18 08:23 Lactic Ac Sepsis Rflx Y 01/24/18 12:40 Plasma Lactic Acid [place] 1.9 mmol/L (0.7-2.0) 01/24/18 16:02 Calcium 9.3 mg/dL (8.4-10.2) 02/03/18 08:23 Magnesium 1.7 mg/dL (1.6-2.3) 01/24/18 12:07 Total Bilirubin 0.3 mg/dL (0.2-1.3) 01/30/18 08:16 AST 25 U/L (14-36) 01/30/18 08:16 ALT 23 U/L (9-52) 01/30/18 08:16 Alkaline Phosphatase 410 U/L (38-126) H 01/30/18 08:16 Total Creatine Kinase <20 U/L (30-135) L 01/24/18 12:07 CK-MB (CK-2) 0.3 ng/mL (0.0-2.4) 01/24/18 12:07 CK-MB (CK-2) Rel Index 01/24/18 12:07 Troponin I <0.012 ng/mL (0.000-0.034) 01/24/18 12:07 Total Protein 6.0 g/dL (6.3-8.2) L 01/30/18 08:16 Albumin 2.7 g/dL (3.5-5.0) L 01/30/18 08:16 Urine Color Yellow 01/24/18 12:38 Urine Appearance Clear (Clear) 01/24/18 12:38 Urine pH 5.5 (5.0-8.0) 01/24/18 12:38 Ur Specific [place] 1.009 (1.001-1.035) 01/24/18 12:38 Urine Protein Negative (Negative) 01/24/18 12:38 Urine Glucose (UA) Negative (Negative) 01/24/18 12:38 Urine Ketones Negative (Negative) 01/24/18 12:38 Urine Blood Negative (Negative) 01/24/18 12:38 Urine Nitrite Negative (Negative) 01/24/18 12:38 Urine Bilirubin Negative (Negative) 01/24/18 12:38 Urine Urobilinogen <2.0 mg/dL (<2.0) 01/24/18 12:38 Ur Leukocyte Esterase Small (Negative) H 01/24/18 12:38 Urine WBC 3 /hpf (0-5) 01/24/18 12:38 Ur Squamous Epith Cells <1 /hpf (0-4) 01/24/18 12:38 Urine Bacteria Few /hpf (None) H 01/24/18 12:38 Fluid Source Abdominal 01/25/18 15:30 Fluid Color Brown 01/25/18 15:30 Fluid Appearance Cloudy 01/25/18 15:30 Fluid RBC 0 /uL 01/25/18 15:30 Fluid Nucleated Cells [id number] /uL 01/25/18 15:30 Fluid Polynuclear WBCs 97 % 01/25/18 15:30 Fluid Mononuclear WBCs 3 % 01/25/18 15:30 Body Fluid Glucose Source Abdominal Fluid 01/25/18 15:30 Fluid Glucose 54 mg/dL 01/25/18 15:30 Body Fluid Protein Source Abdominal Fluid 01/25/18 15:30 Fluid Total Protein 3100 mg/dL 01/25/18 15:30 Body Fluid LDH Source Abdominal Fluid 01/25/18 15:30 Fluid LDH >4200 U/L 01/25/18 15:30 Body Fluid Amylase Source Abdominal Fluid 01/25/18 15:30 Fluid Amylase <15 U/L 01/25/18 15:30 C. difficile (EIA) Intrp Negative (Negative) 01/24/18 15:55 Microbiology 01/25/18 15:30 Aspirate Gram Stain - Final 01/25/18 15:30 Aspirate Body Fluid Culture - Final Escherichia coli Enterococcus faecium Assessment and Plan (1) Abdominal abscess Narrative/Plan: t is noted the patient had significant increasing abdominal pain and computed tomography scan showed evidence of increasing fluid collections intra- abdominally. Will have percutaneous drainage of this abscess area today. Interventional radiology. Antimicrobial therapy with Merrem and Eraxis is restarted at this time. Continue ongoing supportive care. Local wound care for now will be saline dressing to the abdominal ulcerations while this workup is in process. May consider restarting the wound VAC during this stay or may consider transitioning this to a collagen silver product. 02/01/2018 reveals the patient to be somewhat improved after the movement of the drainage tube to be intra-abdominal abscess. She's been followed closely by surgery and likely get back to the long-term care facility for ongoing rehab early next week. Have requested a PICC line to be placed for the ongoing antibiotic therapy is needed for this abdominal infection. Doing well with current antibiotic therapy of Merrem and Eraxis which we'll continue for now. 02/02/2018 shows ongoing improvement after the recent replacement of the intra- abdominal drain tube for the abscess. Pain is under good control. Would continue meropenem and Eraxis at this point in time. Follow-up imaging will determine the overall length of antibiotic therapy, hopefully with the replacement of the drain there will be rapid resolution of the abscess. 02/03/2018 patient does have further improvement. Drainage continues. She's having no fevers or chills. Leukocytosis is stable to improved and should continue to trend to improvement as the intra-abdominal abscess continues to improve after its recent drainage. Likely to rehab on Monday Current Visit: Yes Status: Acute Code(s): [id number] - SNOMED Code(s): 20100497
[2018-02-04] MEDS: MEROPENEM 2 GM in SODIUM CHLORIDE 0.9% 100 ML IVPB SCH ×3 (00:58→15:53)
[2018-02-04] MEDS: HEPARIN SODIUM,PORCINE 5,000 UNIT/ML 1 ML VIAL SQ SCH ×3 (00:59→15:46)
[2018-02-04] MEDS: LEVOTHYROXINE 75 MCG TAB PO SCH (06:11)
[2018-02-04] MEDS: IPRATROPIUM-ALBUTEROL 3 ML NEB INHALATION SCH ×4 (07:47→19:35)
[2018-02-04] MEDS: METOPROLOL TARTRATE 25 MG TAB PO SCH ×2 (08:22→20:45)
[2018-02-04] MEDS: LOSARTAN 25 MG TAB PO SCH (08:22)
[2018-02-04] MEDS: ASCORBIC ACID 500 MG TAB PO SCH (08:24)
[2018-02-04] MEDS: POTASSIUM CHLORIDE ER 10 MEQ TAB.ER.PRT PO SCH ×3 (08:24→11:19)
[2018-02-04] MEDS: ASPIRIN 81 MG PO SCH (08:24)
[2018-02-04] MEDS: DULoxetine HCL 60 MG CAPSULE.DR PO SCH (08:24)
[2018-02-04] MEDS: FUROSEMIDE 40 MG TAB PO SCH ×2 (08:24→15:46)
[2018-02-04] MEDS: CYANOCOBALAMIN 500 MCG TAB PO SCH (08:24)
[2018-02-04] MEDS: PANTOPRAZOLE 40 MG TABLET PO SCH (08:24)
[2018-02-04] MEDS: AMIODARONE 100 MG TAB PO SCH (08:24)
[2018-02-04 09:28] LABS: Anisocytosis Slight; Basophils # (A) 0.2 k/uL (0-0.2); Basophils % (A) 1 %; Eosinophils # (A) 1.6 k/uL (0-0.7); Eosinophils % (A) 8 %; HCT 30.4 % (34.0-46.0); HGB 10.4 gm/dL (11.4-16.0); Hypochromasia Slight; Lymphocytes % (A) 10 %; MCH 26.7 pg (25.0-35.0); MCHC 34.1 g/dL (31.0-37.0); MCV 78.3 fL (80.0-100.0); Mean Platelet Volume 6.7; Microcytosis Slight; Monocytes # (A) 0.9 k/uL (0-1.0); Monocytes % (A) 4 %; Neutrophils # (A) 15.3 k/uL (1.3-7.7); Neutrophils % (A) 75 %; Platelet Count 549 k/uL (150-450); Poikilocytosis Slight; RBC 3.89 m/uL (3.80-5.40); RDW 17.2 % (11.5-15.5); WBC 20.3 k/uL (3.8-10.6)
[2018-02-04 09:43] LABS: Anion Gap 9 mmol/L; Blood Urea Nitrogen 13 mg/dL (7-17); Calcium 9.4 mg/dL (8.4-10.2); Carbon Dioxide 28 mmol/L (22-30); Chloride 95 mmol/L (98-107); Glucose 104 mg/dL (74-99); Potassium 3.4 mmol/L (3.5-5.1); Sodium 132 mmol/L (137-145)
[2018-02-04] MEDS: ANIDULAFUNGIN 100 MG in SODIUM CHLORIDE 0.9% 100 ML IVPB SCH (11:19)
[2018-02-04] MEDS: ONDANSETRON 4 MG/2 ML VIAL IVP PRN (13:05)
--- NOTE | 2018-02-04 13:31 | P.PN ---
Subjective Progress Note Date: 02/04/18 CHIEF COMPLAINT: Abdominal wall wound HISTORY OF PRESENT ILLNESS: The patient is a 72-year-old female with complicated history including ischemic colitis and bowel resection. She has a complicated abdominal wound which is also being managed and followed by infectious disease. No reports of abdominal pain. She is tolerating diet. PHYSICAL EXAM: VITAL SIGNS: Currently stable. GENERAL: Well-developed in no acute distress. HEENT: No sclera icterus. Extraocular movements grossly intact. Moist buccal mucosa. Head is atraumatic, normocephalic. Hears conversational speech. No nasal drainage. NECK: Supple without lymphadenopathy. CHEST: Non-labored respirations and equal bilateral excursions. CARDIOVASCULAR: Regular rate with regular rhythm. ABDOMEN: Dressing clean dry and intact. No signs of cellulitis. MUSCULOSKELETAL: No clubbing, cyanosis or edema. NEUROLOGIC: No focal or lateralizing signs. Cranial nerves II through XII grossly intact. PSYCH: Alert and oriented to person, place and time. SKIN: Well perfused. Good skin turgor. LABS: Reviewed ASSESSMENT: 1. Surgical wound infection with history of ischemic colitis PLAN: 1. Management of antibiotics per infectious disease. 2. May benefit from multivitamin and augment nutrition 3. No additional surgical intervention Objective - Vital Signs Vital signs: Vital Signs Temp 97.7 F 02/04/18 06:00 Pulse 65 02/04/18 06:00 Resp 16 02/04/18 06:00 BP 99/62 02/04/18 06:00 Pulse Ox 96 02/04/18 06:00 Intake & Output 02/03/18 02/04/18 02/04/18 18:59 06:59 18:59 Intake Total 700 600 300 Output Total 45 810 Balance 655 -210 300 Weight 67.5 kg Intake: IV 200 Anidulafungin 100 mg In 100 Sodium Chloride 0.9% 100 ml @ 84 mls/hr IVPB DAILY @1200 [facility] Rx#:[id number] Meropenem 2 gm In Sodium 100 Chloride 0.9% 100 ml @ 200 mls/hr IVPB Q8HR [facility] Rx#:[id number] Oral 500 600 300 Output: Drainage 45 10 Right Abdomen 45 10 Stool 800 Other: Voiding Method Diaper Incontinent # Voids 2 1 2 # Bowel Movements 0 - Labs CBC & Chem 7: 02/04/18 08:42 02/04/18 08:42 Labs: Abnormal Lab Results - Last 24 Hours (Table) 02/04/18 02/04/18 Range/Units 08:42 08:42 WBC 20.3 H (3.8-10.6) k/uL Hgb 10.4 L (11.4-16.0) gm/dL Hct 30.4 L (34.0-46.0) % MCV 78.3 L (80.0-100.0) fL RDW 17.2 H (11.5-15.5) % Plt Count 549 H (150-450) k/uL Neutrophils # 15.3 H (1.3-7.7) k/uL Eosinophils # 1.6 H (0-0.7) k/uL Sodium 132 L (137-145) mmol/L Potassium 3.4 L (3.5-5.1) mmol/L Chloride 95 L (98-107) mmol/L Glucose 104 H (74-99) mg/dL
[2018-02-04] MEDS: ATORVASTATIN 40 MG TAB PO SCH (20:45)
--- NOTE | 2018-02-05 00:24 | PN ---
PROGRESS NOTE DATE OF SERVICE: 02/04/2018. PRESENTING COMPLAINT: Intraabdominal abscess. INTERVAL HISTORY: The patient had recent coronary bypass followed by ischemic bowel followed by ileostomy. Presented with intraabdominal abscess. The patient has got a drain that is draining well. Abdominal pain is much improved. No more nausea. Tolerating a diet. Overall feeling better. REVIEW OF SYSTEMS: Done for constitutional, cardiovascular, GI, pulmonary; relevant findings as above. CURRENT MEDICATIONS: Reviewed, that include IV meropenem and antifungals. PHYSICAL EXAMINATION: Temperature 97.6 pulse 55, respiratory rate 18, blood pressure 110/75 pulse ox 94% on room air. GENERAL APPEARANCE: Lying in bed, awake, comfortable. EYES: Pupils equal. Conjunctivae normal. HEENT: External appearance nose and ears normal. Oral cavity normal. NECK: JVD not raised. Mass not palpable. Respiratory effort normal. LUNGS: Decreased breath sounds. CARDIOVASCULAR: 1st and 2nd sounds. Minimal edema. ABDOMEN: Soft, nontender. Wound VAC in place. Ileostomy bag in place with stool. Abdominal drain in place. PSYCHIATRY: Alert and oriented x3. Mood and affect normal. INVESTIGATIONS: White count 20.3, hemoglobin 10.4, potassium 3.4. BUN and creatinine normal. ASSESSMENT: 1. Intraabdominal abscess in a patient with known history of recent ischemic bowel and abdominal drain in place. Cultures growing E coli and group B Enterococcus faecium. 2. Coronary artery disease status post coronary bypass in November. 3. 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 4. Abdominal wound VAC in place. 5. Paroxysmal atrial fibrillation, currently in sinus rhythm on Eliquis. 6. Peripheral artery disease. 7. Hypothyroidism. 8. Diabetes mellitus type 2. 9. Chronic low back pain from arthritis. 10.Depression, not otherwise specified. 11.Hyperlipidemia. 12.Moderate protein-calorie malnutrition from decreased oral intake. 13.Essential hypertension. PLAN: Care was discussed with the patient. Continue with antibiotics. Clinically patient is doing much better. When okay both with Dr. Mccartney and Dr. Montoya, the patient can go back to the [facility]. MMODL / IJN: [id number] /
[2018-02-05 01:19] VITALS: RESP 16
[2018-02-05] MEDS: MEROPENEM 2 GM in SODIUM CHLORIDE 0.9% 100 ML IVPB SCH ×3 (01:21→14:55)
[2018-02-05] MEDS: HEPARIN SODIUM,PORCINE 5,000 UNIT/ML 1 ML VIAL SQ SCH ×3 (01:21→14:55)
[2018-02-05] MEDS: LEVOTHYROXINE 75 MCG TAB PO SCH (06:35)
[2018-02-05] MEDS: LOSARTAN 25 MG TAB PO SCH (08:14)
[2018-02-05] MEDS: ASPIRIN 81 MG PO SCH (08:14)
[2018-02-05] MEDS: CYANOCOBALAMIN 500 MCG TAB PO SCH (08:14)
[2018-02-05] MEDS: DULoxetine HCL 60 MG CAPSULE.DR PO SCH (08:15)
[2018-02-05] MEDS: POTASSIUM CHLORIDE ER 10 MEQ TAB.ER.PRT PO SCH (08:15)
[2018-02-05] MEDS: PANTOPRAZOLE 40 MG TABLET PO SCH (08:15)
[2018-02-05] MEDS: FUROSEMIDE 40 MG TAB PO SCH ×2 (08:15→14:55)
[2018-02-05] MEDS: AMIODARONE 100 MG TAB PO SCH (08:15)
[2018-02-05] MEDS: METOPROLOL TARTRATE 25 MG TAB PO SCH ×2 (08:15→20:13)
[2018-02-05] MEDS: ASCORBIC ACID 500 MG TAB PO SCH (08:16)
[2018-02-05 09:42] LABS: Anisocytosis Slight; Basophils # (A) 0.2 k/uL (0-0.2); Basophils % (A) 1 %; Eosinophils # (A) 1.5 k/uL (0-0.7); Eosinophils % (A) 8 %; HGB 10.6 gm/dL (11.4-16.0); Hypochromasia Slight; Lymphocytes # (A) 1.9 k/uL (1.0-4.8); Lymphocytes % (A) 11 %; MCH 25.7 pg (25.0-35.0); MCHC 32.1 g/dL (31.0-37.0); MCV 80.1 fL (80.0-100.0); Mean Platelet Volume 6.7; Microcytosis Slight; Monocytes # (A) 0.6 k/uL (0-1.0); Monocytes % (A) 3 %; Neutrophils % (A) 75 %; Platelet Count 531 k/uL (150-450); Poikilocytosis Slight; RBC 4.12 m/uL (3.80-5.40); RDW 17.7 % (11.5-15.5); WBC 17.4 k/uL (3.8-10.6)
[2018-02-05 09:55] LABS: ALT 33 U/L (9-52); AST 51 U/L (14-36); Albumin 2.9 g/dL (3.5-5.0); Alkaline Phosphatase 389 U/L (38-126); Anion Gap 10 mmol/L; Blood Urea Nitrogen 14 mg/dL (7-17); Calcium 9.5 mg/dL (8.4-10.2); Carbon Dioxide 26 mmol/L (22-30); Chloride 96 mmol/L (98-107); Glucose 191 mg/dL (74-99); Potassium 3.5 mmol/L (3.5-5.1); Sodium 132 mmol/L (137-145); Total Bilirubin 0.3 mg/dL (0.2-1.3); Total Protein 5.9 g/dL (6.3-8.2)
--- NOTE | 2018-02-05 10:01 | P.PN ---
Subjective Progress Note Date: 02/05/18 9-year-old female seen this morning sitting up in bed no new events noted over the weekend patient states appetite is improving currently denying any abdominal pain tolerating diet no nausea vomiting percutaneous drain in place a right flank area skin amount of drainage moderate amount of stool ileostomy noted Is being followed by infectious disease recommendations antibiotic 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 Recent coronary artery disease involving the left main coronary artery 4 done on 12/11/2017 Status post replacement of percutaneous drain January 31 for an right side abdominal abscess Objective - Vital Signs Vital signs: Vital Signs Temp 96.9 F L 02/05/18 06:01 Pulse 78 02/05/18 06:01 Resp 16 02/05/18 06:01 BP 111/68 02/05/18 06:01 Pulse Ox 96 02/05/18 06:01 Intake & Output 02/04/18 02/05/18 02/05/18 18:59 06:59 18:59 Intake Total 800 Balance 800 Weight 69 kg Intake: IV 200 Anidulafungin 100 mg In 100 Sodium Chloride 0.9% 100 ml @ 84 mls/hr IVPB DAILY @1200 [facility] Rx#:[id number] Meropenem 2 gm In Sodium 100 Chloride 0.9% 100 ml @ 200 mls/hr IVPB Q8HR [facility] Rx#:[id number] Oral 600 Other: Voiding Method Diaper Diaper Incontinent Incontinent # Voids 2 3 # Bowel Movements 0 - Exam Physical exam 72-year-old female sitting up in bed appears in no acute distress Lungs adequate air movement bilaterally on room air sats are 96% no shortness of breath noted Heart S1 and S2 audible regular Abdomen ostomy moderate amount of brown stool in the ostomy bag soft nondistended nontender surgical dressing dry drain in place right flank scant amount of drainage noted currently is denying any abdominal discomfort incontinent of urine Extremities a trace pedal edema bilaterally - Labs CBC & Chem 7: 02/04/18 08:42 02/05/18 09:09 Labs: Abnormal Lab Results - Last 24 Hours (Table) 02/05/18 Range/Units 09:09 Sodium 132 L (137-145) mmol/L Chloride 96 L (98-107) mmol/L Glucose 191 H (74-99) mg/dL AST 51 H (14-36) U/L Alkaline Phosphatase 389 H (38-126) U/L Total Protein 5.9 L (6.3-8.2) g/dL Albumin 2.9 L (3.5-5.0) g/dL Assessment and Plan Assessment: Impression Present on admission generalized weakness loss of appetite vomiting unintentional weight loss 20 pounds unclear etiology Present on admission leukocytosis 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 coronary artery disease involving the left main coronary artery Preserved left ventricular function paroxysmal atrial fibrillation EKG on admission sinus rhythm Recent December 11 quadruple coronary artery bypass grafting Debility Status post successful ultrasound-guided right abdominal abscess drainage catheter insertion per interventional radiology Leukocytosis persist Plan Follow-up on pending CBC Defer to medicine to address medical issues DVT and GI prophylaxis Will follow with you Continue recommendations by infectious disease Local wound care per infectious disease saline dressings to the abdominal incision Evaluate and manage percutaneous drainage tube catheter with dressing change every 7 days or as needed Repeat labs in the morning Anticipate transfer back to ECF facility in the next 72 hours PT OT The above impression and plan of care have been discussed and directed by signing physician. Missy Baca nurse practitioner acting as scribe for signing physician.
[2018-02-05] MEDS: IPRATROPIUM-ALBUTEROL 3 ML NEB INHALATION SCH ×3 (10:28→20:30)
[2018-02-05] MEDS: ANIDULAFUNGIN 100 MG in SODIUM CHLORIDE 0.9% 100 ML IVPB SCH (11:19)
[2018-02-05 14:20] VITALS: BMI 26.9
[2018-02-05] MEDS: CALCIUM CARBONATE 500 MG CHEWABLE PO PRN (14:55)
[2018-02-05] MEDS: ATORVASTATIN 40 MG TAB PO SCH (20:13)
--- NOTE | 2018-02-05 21:17 | PN ---
PROGRESS NOTE DATE OF SERVICE: 02/05/18. PRESENTING COMPLAINT: Intraabdominal abscess. INTERVAL HISTORY: This patient recent coronary bypass followed by ischemic bowel followed by ileostomy. Presented with intraabdominal abscess. Has a drain in place, draining well. Abdominal pain is greatly improved. No nausea. Tolerating a diet. Has been up at the bedside chair. REVIEW OF SYSTEMS: Done for constitutional, cardiovascular, GI, pulmonary; relevant findings above. CURRENT MEDICATIONS: Reviewed that include IV meropenem and antifungal. EXAMINATION: Afebrile, pulse 81, respirations 16, blood pressure 107/76, pulse ox 97% on room air. GENERAL APPEARANCE: Lying in bed, comfortable. EYES: Pupils equal. Conjunctivae normal. HEENT: External appearance of nose and ears normal. Oral cavity normal. NECK: JVD not raised. Mass not palpable. RESPIRATORY: Effort normal. Lungs, improved air entry. CARDIOVASCULAR: First and second sounds normal. Minimal edema. ABDOMEN: Soft nontender. Wound VAC in place. Ileostomy bag in place. Abdominal drain present. PSYCHIATRY: Alert and oriented x3. Mood and affect normal. INVESTIGATIONS: White count 17.4, hemoglobin 10.6, potassium 3.5. ASSESSMENT: 1. Intraabdominal abscess in a patient with known history of recent ischemic bowel and abdominal drain in place. Cultures positive for E coli and group B Enterococcus faecium. 2. Coronary artery disease status post coronary bypass in November. 3. Ischemic bowel with perforation right transverse colectomy with ileostomy from last admission. 4. Abdominal wound VAC in place. 5. Paroxysmal atrial fibrillation currently in sinus rhythm on Eliquis. 6. Peripheral artery disease. 7. Hypothyroidism. 8. Diabetes mellitus type 2. 9. Chronic low back pain from arthritis. 10.Depression, not otherwise specified. 11.Hyperlipidemia. 12.Moderate protein-calorie malnutrition from decreased oral intake. 13.Essential hypertension. PLAN: Care was discussed with the patient. The patient continues to improve. White count continues to come down. No fever. Abdomen is soft and benign appearing now. When both Dr. Mccartney and Dr. Montoya are comfortable, the patient can then go back to the [facility]. This was discussed with the patient. MMODL / IJN: [id number] /
--- NOTE | 2018-02-05 22:41 | P.PN ---
Subjective Progress Note Date: 02/05/18 It is noted the patient had significant increasing abdominal pain and computed tomography scan showed evidence of increasing fluid collections intra- abdominally. Will have percutaneous drainage of this abscess area today. Interventional radiology. Antimicrobial therapy with Merrem and Eraxis is restarted at this time. Continue ongoing supportive care. Local wound care for now will be saline dressing to the abdominal ulcerations while this workup is in process. 01/29/2018 is following with surgery. Follow-up computed tomography scan has been requested to help determine next step and outpatient therapy. 02/01/2018 reveals the patient to be feeling somewhat better after the new drain placement by interventional radiology for the ongoing intra-abdominal abscess. Her pain is under good control and is anxious to get back to rehab. 02/02/2018 patient continues to have some improvement with the placement of the new drain. We'll likely go back to rehab on Monday once her has been further stability of her status. 02/03/2018 patient has further improvement. Looks forward to going to rehab. 02/05/2018 reveals the patient to be feeling somewhat better again today. Other than fatigue she relates that abdominal pain is improved and is not having fevers or chills. Objective - Vital Signs Vital signs: Vital Signs Temp 98.7 F 02/05/18 14:38 Pulse 79 02/05/18 20:12 Resp 16 02/05/18 14:38 BP 119/72 02/05/18 20:12 Pulse Ox 97 02/05/18 14:38 Intake & Output 02/05/18 02/05/18 02/06/18 06:59 18:59 06:59 Intake Total 600 Output Total 100 Balance 600 -100 Weight 69 kg 69 kg Intake: Oral 600 Output: Stool 100 Other: Voiding Method Diaper Diaper Incontinent Incontinent # Voids 3 2 4 # Bowel Movements 0 - Exam Gen: This is a 72-year-old female. she is supine in bed and appears to be comfortable and in no acute distress. HEENT: Head is atraumatic, normocephalic. Pupils equal, round. Sclerae is anicteric. Mucous members of the mouth are slightly dry. NECK: Supple. No JVD. No lymphadenopathy. No thyromegaly. LUNGS: Clear to auscultation. No wheezes or rhonchi. No intercostal retractions. HEART: Regular rate and rhythm. No murmur. Sternal wound is intact. No significant drainage, erythema.chest wall wound midsternal is healed with no signs of infection. ABDOMEN: ileostomy in place in the right side with brown stool. Bowel sounds are present. Wound has the dressing in place without difficulties, the drain has evidence of purulent material. EXTREMITIES: No pedal edema. Wound and left lower extremity shows no signs of infection. No drainage, significant erythema or edema.dorsalis pedis 1+ bilaterally. NEUROLOGICAL: Patient is awake alert and interactive with no focal neural deficits. - Labs CBC & Chem 7: 02/05/18 09:09 02/05/18 09:09 Labs: Abnormal Lab Results - Last 24 Hours (Table) 02/05/18 02/05/18 Range/Units 09:09 WBC 17.4 H (3.8-10.6) k/uL Hgb 10.6 L (11.4-16.0) gm/dL Hct 33.0 L (34.0-46.0) % RDW 17.7 H (11.5-15.5) % Plt Count 531 H (150-450) k/uL Neutrophils # 13.0 H (1.3-7.7) k/uL Eosinophils # 1.5 H (0-0.7) k/uL Sodium 132 L (137-145) mmol/L Chloride 96 L (98-107) mmol/L Glucose 191 H (74-99) mg/dL AST 51 H (14-36) U/L Alkaline Phosphatase 389 H (38-126) U/L Total Protein 5.9 L (6.3-8.2) g/dL Albumin 2.9 L (3.5-5.0) g/dL Laboratory Results WBC 17.4 k/uL (3.8-10.6) H 02/05/18 09:09 RBC 4.12 m/uL (3.80-5.40) 02/05/18 09:09 Hgb 10.6 gm/dL (11.4-16.0) L 02/05/18 09:09 Hct 33.0 % (34.0-46.0) L 02/05/18 09:09 MCV 80.1 fL (80.0-100.0) 02/05/18 09:09 MCH 25.7 pg (25.0-35.0) 02/05/18 09:09 MCHC 32.1 g/dL (31.0-37.0) 02/05/18 09:09 RDW 17.7 % (11.5-15.5) H 02/05/18 09:09 Plt Count 531 k/uL (150-450) H 02/05/18 09:09 Neutrophils % 75 % 02/05/18 09:09 Lymphocytes % 11 % 02/05/18 09:09 Monocytes % 3 % 02/05/18 09:09 Eosinophils % 8 % 02/05/18 09:09 Basophils % 1 % 02/05/18 09:09 Neutrophils # 13.0 k/uL (1.3-7.7) H 02/05/18 09:09 Lymphocytes # 1.9 k/uL (1.0-4.8) 02/05/18 09:09 Monocytes # 0.6 k/uL (0-1.0) 02/05/18 09:09 Eosinophils # 1.5 k/uL (0-0.7) H 02/05/18 09:09 Basophils # 0.2 k/uL (0-0.2) 02/05/18 09:09 Hypochromasia Slight 02/05/18 09:09 Poikilocytosis Slight 02/05/18 09:09 Anisocytosis Slight 02/05/18 09:09 Microcytosis Slight 02/05/18 09:09 PT 10.6 sec (9.0-12.0) 02/02/18 08:03 INR 1.1 (<1.2) 02/02/18 08:03 APTT 29.2 sec (22.0-30.0) 01/24/18 12:07 Sodium 132 mmol/L (137-145) L 02/05/18 09:09 Potassium 3.5 mmol/L (3.5-5.1) 02/05/18 09:09 Chloride 96 mmol/L (98-107) L 02/05/18 09:09 Carbon Dioxide 26 mmol/L (22-30) 02/05/18 09:09 Anion Gap 10 mmol/L 02/05/18 09:09 BUN 14 mg/dL (7-17) 02/05/18 09:09 Creatinine 0.55 mg/dL (0.52-1.04) 02/05/18 09:09 Est GFR (CKD-EPI)AfAm >90 (>60 ml/min/1.73 sqM) 02/05/18 09:09 Est GFR (CKD-EPI)NonAf >90 (>60 ml/min/1.73 sqM) 02/05/18 09:09 Glucose 191 mg/dL (74-99) H 02/05/18 09:09 Lactic Ac Sepsis Rflx Y 01/24/18 12:40 Plasma Lactic Acid [place] 1.9 mmol/L (0.7-2.0) 01/24/18 16:02 Calcium 9.5 mg/dL (8.4-10.2) 02/05/18 09:09 Magnesium 1.7 mg/dL (1.6-2.3) 01/24/18 12:07 Total Bilirubin 0.3 mg/dL (0.2-1.3) 02/05/18 09:09 AST 51 U/L (14-36) H 02/05/18 09:09 ALT 33 U/L (9-52) 02/05/18 09:09 Alkaline Phosphatase 389 U/L (38-126) H 02/05/18 09:09 Total Creatine Kinase <20 U/L (30-135) L 01/24/18 12:07 CK-MB (CK-2) 0.3 ng/mL (0.0-2.4) 01/24/18 12:07 CK-MB (CK-2) Rel Index 01/24/18 12:07 Troponin I <0.012 ng/mL (0.000-0.034) 01/24/18 12:07 Total Protein 5.9 g/dL (6.3-8.2) L 02/05/18 09:09 Albumin 2.9 g/dL (3.5-5.0) L 02/05/18 09:09 Urine Color Yellow 01/24/18 12:38 Urine Appearance Clear (Clear) 01/24/18 12:38 Urine pH 5.5 (5.0-8.0) 01/24/18 12:38 Ur Specific [place] 1.009 (1.001-1.035) 01/24/18 12:38 Urine Protein Negative (Negative) 01/24/18 12:38 Urine Glucose (UA) Negative (Negative) 01/24/18 12:38 Urine Ketones Negative (Negative) 01/24/18 12:38 Urine Blood Negative (Negative) 01/24/18 12:38 Urine Nitrite Negative (Negative) 01/24/18 12:38 Urine Bilirubin Negative (Negative) 01/24/18 12:38 Urine Urobilinogen <2.0 mg/dL (<2.0) 01/24/18 12:38 Ur Leukocyte Esterase Small (Negative) H 01/24/18 12:38 Urine WBC 3 /hpf (0-5) 01/24/18 12:38 Ur Squamous Epith Cells <1 /hpf (0-4) 01/24/18 12:38 Urine Bacteria Few /hpf (None) H 01/24/18 12:38 Fluid Source Abdominal 01/25/18 15:30 Fluid Color Brown 01/25/18 15:30 Fluid Appearance Cloudy 01/25/18 15:30 Fluid RBC 0 /uL 01/25/18 15:30 Fluid Nucleated Cells [id number] /uL 01/25/18 15:30 Fluid Polynuclear WBCs 97 % 01/25/18 15:30 Fluid Mononuclear WBCs 3 % 01/25/18 15:30 Body Fluid Glucose Source Abdominal Fluid 01/25/18 15:30 Fluid Glucose 54 mg/dL 01/25/18 15:30 Body Fluid Protein Source Abdominal Fluid 01/25/18 15:30 Fluid Total Protein 3100 mg/dL 01/25/18 15:30 Body Fluid LDH Source Abdominal Fluid 01/25/18 15:30 Fluid LDH >4200 U/L 01/25/18 15:30 Body Fluid Amylase Source Abdominal Fluid 01/25/18 15:30 Fluid Amylase <15 U/L 01/25/18 15:30 C. difficile (EIA) Intrp Negative (Negative) 01/24/18 15:55 Microbiology 01/25/18 15:30 Aspirate Gram Stain - Final 01/25/18 15:30 Aspirate Body Fluid Culture - Final Escherichia coli Enterococcus faecium Assessment and Plan (1) Abdominal abscess Narrative/Plan: t is noted the patient had significant increasing abdominal pain and computed tomography scan showed evidence of increasing fluid collections intra- abdominally. Will have percutaneous drainage of this abscess area today. Interventional radiology. Antimicrobial therapy with Merrem and Eraxis is restarted at this time. Continue ongoing supportive care. Local wound care for now will be saline dressing to the abdominal ulcerations while this workup is in process. May consider restarting the wound VAC during this stay or may consider transitioning this to a collagen silver product. 02/01/2018 reveals the patient to be somewhat improved after the movement of the drainage tube to be intra-abdominal abscess. She's been followed closely by surgery and likely get back to the long-term care facility for ongoing rehab early next week. Have requested a PICC line to be placed for the ongoing antibiotic therapy is needed for this abdominal infection. Doing well with current antibiotic therapy of Merrem and Eraxis which we'll continue for now. 02/02/2018 shows ongoing improvement after the recent replacement of the intra- abdominal drain tube for the abscess. Pain is under good control. Would continue meropenem and Eraxis at this point in time. Follow-up imaging will determine the overall length of antibiotic therapy, hopefully with the replacement of the drain there will be rapid resolution of the abscess. 02/03/2018 patient does have further improvement. Drainage continues. She's having no fevers or chills. Leukocytosis is stable to improved and should continue to trend to improvement as the intra-abdominal abscess continues to improve after its recent drainage. Likely to rehab on Monday02/05/2018 patient continues to have some improvement. The leukocytosis continues to improve. Transition to rehab is in process. Will help transition antibiotic therapy and that the meropenem will continue through 02/13/2018 and we'll transition the Eraxis to oral fluconazole also for 8 days. Will be following up with her surgeon and will likely have further outpatient CT scanning around the time of the completion of her antibiotic therapy. Current Visit: Yes Status: Acute Code(s): WEB3628 - SNOMED Code(s): 59897699
[2018-02-06] MEDS: MEROPENEM 2 GM in SODIUM CHLORIDE 0.9% 100 ML IVPB SCH ×3 (00:08→15:10)
[2018-02-06] MEDS: HEPARIN SODIUM,PORCINE 5,000 UNIT/ML 1 ML VIAL SQ SCH ×3 (00:08→15:09)
[2018-02-06] MEDS: ONDANSETRON 4 MG/2 ML VIAL IVP PRN (06:13)
[2018-02-06] MEDS: LEVOTHYROXINE 75 MCG TAB PO SCH (06:21)
[2018-02-06] MEDS: IPRATROPIUM-ALBUTEROL 3 ML NEB INHALATION SCH ×3 (07:21→16:25)
[2018-02-06] MEDS: FUROSEMIDE 40 MG TAB PO SCH ×2 (08:04→15:09)
[2018-02-06] MEDS: POTASSIUM CHLORIDE ER 10 MEQ TAB.ER.PRT PO SCH (08:04)
[2018-02-06] MEDS: AMIODARONE 100 MG TAB PO SCH (08:04)
[2018-02-06] MEDS: LOSARTAN 25 MG TAB PO SCH (08:04)
[2018-02-06] MEDS: ASPIRIN 81 MG PO SCH (08:04)
[2018-02-06] MEDS: PANTOPRAZOLE 40 MG TABLET PO SCH (08:04)
[2018-02-06] MEDS: DULoxetine HCL 60 MG CAPSULE.DR PO SCH (08:04)
[2018-02-06] MEDS: ASCORBIC ACID 500 MG TAB PO SCH (08:04)
[2018-02-06] MEDS: METOPROLOL TARTRATE 25 MG TAB PO SCH (08:04)
[2018-02-06] MEDS: ANIDULAFUNGIN 100 MG in SODIUM CHLORIDE 0.9% 100 ML IVPB SCH (11:35)
[2018-02-06] MEDS: ERGOCALCIFEROL 50,000 UNIT CAP PO SCH (11:35)
[2018-02-06] MEDS: CYANOCOBALAMIN 500 MCG TAB PO SCH (11:35)
[2018-02-06 12:01] LABS: Anisocytosis Slight; Basophils # (A) 0.2 k/uL (0-0.2); Basophils % (A) 1 %; Eosinophils # (A) 1.3 k/uL (0-0.7); Eosinophils % (A) 8 %; HCT 30.7 % (34.0-46.0); HGB 9.9 gm/dL (11.4-16.0); Lymphocytes # (A) 1.7 k/uL (1.0-4.8); Lymphocytes % (A) 10 %; MCH 25.6 pg (25.0-35.0); MCHC 32.4 g/dL (31.0-37.0); Mean Platelet Volume 6.9; Microcytosis Slight; Monocytes # (A) 0.7 k/uL (0-1.0); Monocytes % (A) 4 %; Neutrophils % (A) 75 %; Platelet Count 514 k/uL (150-450); Poikilocytosis Slight; RBC 3.89 m/uL (3.80-5.40); RDW 17.9 % (11.5-15.5)
[2018-02-06 12:20] LABS: Toxic Granulation Present
--- NOTE | 2018-02-06 12:26 | P.PN ---
Subjective Progress Note Date: 02/06/18 72-year-old female sitting up in bed states is anxious to go to the rehab center at the white count today is 16 abdomen soft tolerating a diet no nausea no vomiting moderate amount of stool from the ostomy 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 Recent coronary artery disease involving the left main coronary artery 4 done on 12/11/2017 Status post replacement of percutaneous drain January 31 for an right side abdominal abscess Objective - Vital Signs Vital signs: Vital Signs Temp 96 F L 02/06/18 06:01 Pulse 74 02/06/18 11:38 Resp 16 02/06/18 11:38 BP 110/68 02/06/18 06:01 Pulse Ox 99 02/06/18 06:01 Intake & Output 02/05/18 02/06/18 02/06/18 18:59 06:59 18:59 Intake Total 600 Output Total 200 Balance 600 -200 Weight 69 kg 70.5 kg Intake: Oral 600 Output: Stool 200 Other: Voiding Method Diaper Diaper Diaper Incontinent Incontinent Incontinent # Voids 2 4 - Exam Physical exam 72-year-old female sitting up in bed appears in no acute distress talkative states anxious to go to the rehab today Lungs adequate air movement no shortness of breath noted Heart S1 and S2 audible regular Abdomen ostomy moderate amount of brown stool in the ostomy bag soft nondistended nontender surgical dressing dry drain in place right flank scant amount of drainage noted currently is denying any abdominal discomfort incontinent of urine Extremities a trace pedal edema bilaterally - Labs CBC & Chem 7: 02/06/18 11:16 02/05/18 09:09 Labs: Abnormal Lab Results - Last 24 Hours (Table) 02/06/18 Range/Units 11:16 WBC 16.0 H (3.8-10.6) k/uL Hgb 9.9 L (11.4-16.0) gm/dL Hct 30.7 L (34.0-46.0) % MCV 79.0 L (80.0-100.0) fL RDW 17.9 H (11.5-15.5) % Plt Count 514 H (150-450) k/uL Assessment and Plan Assessment: Impression Present on admission generalized weakness loss of appetite vomiting unintentional weight loss 20 pounds unclear etiology Present on admission leukocytosis 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 coronary artery disease involving the left main coronary artery Preserved left ventricular function paroxysmal atrial fibrillation EKG on admission sinus rhythm Recent December 11 quadruple coronary artery bypass grafting Debility Status post successful ultrasound-guided right abdominal abscess drainage catheter insertion per interventional radiology Leukocytosis persist improving Plan Okay to transfer to the rehab center from surgical service will follow in the outpatient setting Defer to medicine to address medical issues DVT and GI prophylaxis Will follow with you Continue recommendations by infectious disease Local wound care per infectious disease saline dressings to the abdominal incision Evaluate and manage percutaneous drainage tube catheter with dressing change every 7 days or as needed The above impression and plan of care have been discussed and directed by signing physician. Missy Baca nurse practitioner acting as scribe for signing physician.
[2018-02-06 15:10] VITALS: BP 106/59; PULSE 72; TEMP 97
--- NOTE | 2018-02-06 15:36 | DS ---
DISCHARGE SUMMARY DATE OF ADMISSION: 01/26/2018 DATE OF DISCHARGE: 02/06/2018 FINAL DIAGNOSES: 1. Intraabdominal abscess in a patient with known history of recent ischemic bowel with cultures positive for Escherichia coli and group B Enterococcus faecium. 2. Coronary artery disease status post coronary bypass in November of this year. 3. Ischemic bowel with perforation, right transverse colectomy with ileostomy from last admission. 4. Abdominal wound VAC in place. 5. Paroxysmal atrial fibrillation, patient is in sinus rhythm on Eliquis. 6. Peripheral artery disease. 7. Hypothyroidism. 8. Diabetes mellitus type 2. 9. Chronic low back pain from arthritis. 10.Depression, not otherwise specified. 11.Hyperlipidemia. 12.Moderate protein-calorie malnutrition from decreased oral intake. 13.Essential hypertension. HOSPITAL COURSE: This is a very pleasant 72-year-old patient who was discharged from the hospital on 01/09/2018. Patient's last admission had a coronary bypass followed by ischemic bowel resulting in ostomy and a wound VAC. Patient's ostomy was working well. Patient presented after appetite went down. Patient had been discharged on IV ceftriaxone and Flagyl. Patient started with nausea, vomiting, abdominal pain. CT scan showed intraabdominal abscess, drain was placed. There was some mechanical problem with the drain. After a few days and drain was replaced, has been draining rather well. Patient came back positive for above organisms. Patient's white count has been slowly coming down. White count was up to 26,000 when she came in, now down to 16,000, coming down every day, draining about 30 mL per shift today. Today, I spoke with Dr. Montoya, okayed him to go per Dr. Mccartney, patient to complete the course of antibiotics. I spoke to the patient and her . Questions were answered. Discussion and discharge planning more than 35 minutes. PHYSICAL EXAMINATION: Temperature 96, pulse 93, respirations 16, blood pressure 110/68, pulse ox 99% on room air. GENERAL APPEARANCE: Lying in bed, tired-appearing. LUNGS: Decreased breath sounds. ABDOMEN: Soft. Ileostomy bag in place. Wound VAC in place. Had a drain in place. INVESTIGATIONS: White count 16, hemoglobin 9.9, BUN and creatinine have been normal. DISCHARGE MEDICATIONS: 1. Cymbalta 60 mg a day. 2. Vitamin D2 fifty thousand units p.o. on Monday. 3. Synthroid 75 mcg a day. 4. Vitamin B12 five hundred mcg a day. 5. Cordarone 100 mg a day. 6. Eliquis 5 mg b.i.d. 7. Aspirin 81 mg a day. 8. TUMS 500 mg q.i.d. p.r.n. 9. Lasix 40 mg b.i.d. 10.DuoNeb q.i.d. plus q.2 p.r.n. 11.Lopressor 25 mg q.12. 12.Protonix 40 mg with breakfast. 13.Potassium 20 mEq a day. 14.ProStat supplement 30 mL p.o. b.i.d. 15.Vitamin C 500 mg a day. 16.Lipitor 40 mg q.h.s. 17.Cozaar 25 mg a day. 18.Diflucan 200 mg a day 8 tablets. 19.Meropenem 2 g IV piggyback q.8, total of 24 vials. 20.Oxycodone 20 mg q.8. DISPOSITION: [facility]. FOLLOWUP: Follow up with Dr. Alcala at [facility]. Follow up with Dr. Montoya in 1 week. Patient to keep her appointment with Cardiothoracic and Surgery and [facility] [employer]. Wound care dressing changes as per Surgery. MMODL / IJN: [id number] /
== END 2018-02-06 17:22 | DRG 863 ==
LOC: EC 11:06 → 4MS4W 13:29 → OBSVTOIN 01-26 08:08 → 4MS4W 01-28 13:43
PROVIDERS: ADMIT Hospitalist; ATTEND Hospitalist
PROC: 0W9G30Z Drainage of Peritoneal Cavity with Drainage Device, Percutaneous Approach (ICD-10-PCS; principal; 2018-01-25)
PROC: 02HV33Z Insertion of Infusion Device into Superior Vena Cava, Percutaneous Approach (ICD-10-PCS; 2018-02-02 11:45)
DX: T81.43XA Infection following a procedure, organ and space surgical site, initial encounter (principal); E44.0 Moderate protein-calorie malnutrition; E87.1 Hypo-osmolality and hyponatremia; J98.11 Atelectasis; J90 Pleural effusion, not elsewhere classified; B95.2 Enterococcus as the cause of diseases classified elsewhere; B96.20 Unspecified Escherichia coli [E. coli] as the cause of diseases classified elsewhere; E03.9 Hypothyroidism, unspecified; E11.51 Type 2 diabetes mellitus with diabetic peripheral angiopathy without gangrene; E78.5 Hyperlipidemia, unspecified; F17.201 Nicotine dependence, unspecified, in remission; F32.9 Major depressive disorder, single episode, unspecified; G89.29 Other chronic pain; I10 Essential (primary) hypertension; I25.10 Atherosclerotic heart disease of native coronary artery without angina pectoris; I48.0 Paroxysmal atrial fibrillation; K68.11 Postprocedural retroperitoneal abscess; F41.9 Anxiety disorder, unspecified; M19.90 Unspecified osteoarthritis, unspecified site; Z96.653 Presence of artificial knee joint, bilateral; Z79.890 Hormone replacement therapy; Z79.01 Long term (current) use of anticoagulants; Z79.4 Long term (current) use of insulin; Z79.82 Long term (current) use of aspirin; Z79.899 Other long term (current) drug therapy; Z80.49 Family history of malignant neoplasm of other genital organs; Z82.49 Family history of ischemic heart disease and other diseases of the circulatory system; Z87.19 Personal history of other diseases of the digestive system; Z87.440 Personal history of urinary (tract) infections; Z93.2 Ileostomy status; Z93.3 Colostomy status; Z95.1 Presence of aortocoronary bypass graft
CPT/HCPCS: 36415; 36569; 49406; 71046; 74177; 75989; 76937; 76942; 77001; 80048; 80053; 81001; 82150; 82550; 82553; 82945; 83605; 83615; 83735; 84157; 84484; 85025; 85610; 85730; 87070; 87077; 87186; 87205; 87324; 88173; 88305; 89050; 90686; 93005; 94640; 94760; 96361; 96374; 99285

== ENCOUNTER 2018-03-02 17:37 | Inpatient (IN) | payer MEDICARE ==
--- NOTE | 2018-03-02 18:03 | ED ---
General Adult HPI - General Chief complaint: Recheck/Abnormal Lab/Rx Stated complaint: abnormal labs Time Seen by Provider: 03/02/18 17:45 Source: patient, EMS Mode of arrival: EMS Limitations: physical limitation - History of Present Illness Initial comments: 72-year-old female patient presents to the emergency department today for evaluation of elevated white blood cell count. Patient underwent bowel resection with colostomy placement on December 14. Patient subsequently developed an intra-abdominal abscess was admitted to the hospital at the end of December. Patient had PICC line inserted, given mcfp antibiotics, and discharged to [facility]. Patient also had placement of MASTER drain to help drain the abscess. Patient reports small amount of drainage each day, states it is pink in color, denies any purulence. Patient states that the antibiotics ended approximately 2 weeks ago. Patient states that her white blood cell count has been more elevated with each lab draw. This morning it was 18.5. She states that she has been nauseated, especially in the mornings, but denies any vomiting. Patient denies any fever or chills. She denies any cough, congestion , sore throat, or nasal drainage. Denies any hematuria, dysuria, urinary frequency, urinary urgency. She denies any abdominal pain, constipation, or diarrhea. She denies any wounds or skin infections. Patient denies any recent rash, shortness breath, chest pain, back pain, numbness, tingling, dizziness, weakness, headache, visual changes, or any other complaints. - Related Data Home Medications Medication Instructions Recorded Confirmed DULoxetine HCL [Cymbalta] 60 mg PO DAILY@79912/14/16 03/02/18 Ergocalciferol (Vitamin D2) 50,000 unit PO TU@169912/14/16 03/02/18 [Vitamin D2] Levothyroxine Sodium [Synthroid] 75 mcg PO DAILY@59912/14/16 03/02/18 Cyanocobalamin [Vitamin B-12] 500 mcg PO DAILY@169912/04/17 03/02/18 Ascorbic Acid [Vitamin C] 500 mg PO DAILY@169901/24/18 03/02/18 Atorvastatin [Lipitor] 40 mg PO HS@2100 01/24/18 03/02/18 Losartan [Cozaar] 25 mg PO DAILY@0801/24/18 03/02/18 Acetaminophen Tab [Tylenol Tab] 325 mg PO Q4H PRN 03/02/18 03/02/18 Amiodarone [Cordarone] 100 mg PO DAILY@0800 03/02/18 03/02/18 Apixaban [Eliquis] 5 mg PO BID@0800,1700 03/02/18 03/02/18 Aspirin 81 mg PO DAILY@1700 03/02/18 03/02/18 Bisacodyl [Dulcolax] 10 mg RECTAL DAILY PRN 03/02/18 03/02/18 Ensure Clear 237 ml PO TID@0800,1200,1700 03/02/18 03/02/18 Furosemide [Lasix] 40 mg PO BID@0600,1400 03/02/18 03/02/18 Latanoprost/Pf [Latanoprost 0.005% 1 drop RIGHT EYE HS@2100 03/02/18 03/02/18 Eye Drop] Magic Cup 1 dose PO DAILY@1400 03/02/18 03/02/18 Magnesium Hydroxide [Milk of 7,200 mg PO ONCE PRN 03/02/18 03/02/18 Magnesia Concentrate] Metoprolol Tartrate [Lopressor] 25 mg PO BID@0800,2100 03/02/18 03/02/18 Na Phos,M-B/Na Phos,Di-Ba [Fleet 133 ml RECTAL ONCE PRN 03/02/18 03/02/18 Adult] Ondansetron [Zofran] 4 mg PO Q6H PRN 03/02/18 03/02/18 Potassium Chloride [Klor-Con M15] 30 meq PO DAILY@0600 03/02/18 03/02/18 oxyCODONE HCL 20 mg PO TID@0800,1600,0000 03/02/18 03/02/18 Previous Rx's Medication Instructions Recorded Calcium Carbonate [Tums] 500 mg PO QID PRN chew 01/09/18 Ipratropium-Albuterol Nebulize 3 ml INHALATION RT-Q2H PRN 01/09/18 [Duoneb 0.5 mg-3 mg/3 ml Soln] ampul.neb Allergies Allergy/AdvReac Type Severity Reaction Status Date / Time No Known Allergies Allergy Verified 03/02/18 18:37 Review of Systems ROS Statement: Those systems with pertinent positive or pertinent negative responses have been documented in the HPI. ROS Other: All systems not noted in ROS Statement are negative. Past Medical History Past Medical History: Atrial Fibrillation, Coronary Artery Disease (CAD), Diabetes Mellitus, Hyperlipidemia, Hypertension, Osteoarthritis (OA), Thyroid Disorder, Vascular Disorder Additional Past Medical History / Comment(s): Pt. states poor circulation in RLE due to an artificial bypass. past fall, Chronic back pain, bilateral shoulder problems djd has difficulty with rom.past uti-ecoli History of Any Multi-Drug Resistant Organisms: ESBL Date of last positivie culture/infection: 01/25/18 MDRO Source:: BODY FLUID ASPIRATE Past Surgical History: Appendectomy, Breast Surgery, Cholecystectomy, Orthopedic Surgery Additional Past Surgical History / Comment(s): "rt leg sx"artificial artery". Bilateral knee replacements. 2016-rt rotaotr cuff sxLeft breast surgery for benign tumor. Epidurals to lower back. heart cath 12-08-17, quad cabg 12-11-17, colectomy/ileostomy- has abd wound w/ wound vac. picc line since removed. Past Anesthesia/Blood Transfusion Reactions: No Reported Reaction Past Psychological History: Anxiety, Depression Smoking Status: Former smoker Past Alcohol Use History: Rare Past Drug Use History: None Reported - Past Family History Mother Family Medical History: Cancer Additional Family Medical History / Comment(s): Uterine cancer. General Exam Limitations: physical limitation General appearance: alert, in no apparent distress, other (This is a well- developed, well-nourished elderly female patient in no acute distress. Vital signs upon presentation are temperature 98.1F, pulse 69, respirations 18, blood pressure 118/67, pulse ox 96% on room air.) Eye exam: Present: normal appearance, PERRL, EOMI. Absent: scleral icterus, conjunctival injection, periorbital swelling ENT exam: Present: normal exam, normal oropharynx, mucous membranes moist Respiratory exam: Present: normal lung sounds bilaterally. Absent: respiratory distress, wheezes, rales, rhonchi, stridor Cardiovascular Exam: Present: regular rate, normal rhythm, normal heart sounds. Absent: systolic murmur, diastolic murmur, rubs, gallop, clicks GI/Abdominal exam: Present: soft, normal bowel sounds, other (Patient has right mid abdomen colostomy, soft light brown output. Right mid abdomen MASTER drain present, no surrounding erythema, no drainage currently. Healing midline abdominal incision. No surrounding erythema, swelling, or drainage. ). Absent: distended, tenderness, guarding, rebound, rigid Neurological exam: Present: alert, oriented X3, CN II-XII intact Psychiatric exam: Present: normal affect, normal mood Skin exam: Present: warm, dry, intact, normal color. Absent: rash Course Vital Signs 03/02/18 03/02/18 03/02/18 17:40 17:41 17:50 Temperature 98.1 F Pulse Rate 69 Respiratory 18 Rate Blood Pressure 118/67 118/67 O2 Sat by Pulse 97 96 98 Oximetry 03/02/18 03/02/18 03/02/18 18:00 18:10 18:20 Temperature Pulse Rate 70 Respiratory 15 Rate Blood Pressure 118/67 108/74 108/74 O2 Sat by Pulse 98 98 Oximetry 03/02/18 03/02/18 03/02/18 18:30 18:40 18:50 Temperature Pulse Rate 71 72 Respiratory 14 16 Rate Blood Pressure 108/74 113/72 113/72 O2 Sat by Pulse 99 97 Oximetry 03/02/18 03/02/18 03/02/18 19:00 19:10 19:11 Temperature Pulse Rate 73 70 74 Respiratory 37 H 13 18 Rate Blood Pressure 113/72 116/80 116/80 O2 Sat by Pulse 97 96 97 Oximetry 03/02/18 03/02/18 03/02/18 19:20 19:30 19:40 Temperature Pulse Rate 71 72 Respiratory 13 14 Rate Blood Pressure 116/80 116/80 100/66 O2 Sat by Pulse 97 95 Oximetry 03/02/18 03/02/18 03/02/18 19:50 20:00 20:10 Temperature Pulse Rate 68 71 71 Respiratory 17 16 8 L Rate Blood Pressure 100/66 100/66 100/61 O2 Sat by Pulse 97 98 97 Oximetry 03/02/18 03/02/18 03/02/18 20:20 20:25 20:30 Temperature Pulse Rate 71 71 68 Respiratory 11 L 18 13 Rate Blood Pressure 100/61 100/61 100/61 O2 Sat by Pulse 97 96 94 L Oximetry 03/02/18 03/02/18 03/02/18 20:40 20:50 21:00 Temperature Pulse Rate 67 68 67 Respiratory 6 L 14 19 Rate Blood Pressure 99/64 99/64 99/64 O2 Sat by Pulse 98 100 97 Oximetry 03/02/18 03/02/18 03/02/18 21:10 21:20 21:30 Temperature Pulse Rate 67 67 69 Respiratory 7 L 10 L 5 L Rate Blood Pressure 93/58 93/58 93/58 O2 Sat by Pulse 99 97 93 L Oximetry 03/02/18 03/02/18 03/02/18 21:40 21:50 22:00 Temperature 98.3 F Pulse Rate 71 72 71 Respiratory 17 14 8 L Rate Blood Pressure 103/58 103/58 103/58 O2 Sat by Pulse 97 97 98 Oximetry 03/02/18 03/02/18 03/02/18 22:10 22:20 22:30 Temperature Pulse Rate 69 71 72 Respiratory 3 L 5 L 9 L Rate Blood Pressure 110/65 110/65 110/65 O2 Sat by Pulse 98 99 98 Oximetry 03/02/18 03/02/18 03/02/18 22:40 22:50 23:00 Temperature Pulse Rate 74 73 75 Respiratory 4 L 12 6 L Rate Blood Pressure 112/67 112/67 112/67 O2 Sat by Pulse 98 96 96 Oximetry 03/02/18 03/02/18 03/02/18 23:10 23:20 23:30 Temperature Pulse Rate 76 75 77 Respiratory 12 14 22 Rate Blood Pressure 105/66 105/66 105/66 O2 Sat by Pulse 95 94 L 95 Oximetry 03/02/18 23:40 Temperature 97.9 F Pulse Rate 75 Respiratory 12 Rate Blood Pressure 110/65 O2 Sat by Pulse 96 Oximetry Medical Decision Making - Medical Decision Making 72-year-old female patient presents to the emergency department today for evaluation of elevated white blood cell count. Patient is recovering from intra -abdominal abscess status post MASTER drain placement and prolonged IV antibiotics. Physical examination did reveal healing midline incision to the abdomen with no surrounding erythema or drainage. Patient does have right mid abdomen colostomy and MASTER drain placed also with no erythema, swelling, or drainage from the sites. Labs reviewed and did reveal elevated white blood cell count is 17.3 with neutrophil count at 12.6, hemoglobin 9.5, sodium 127, potassium 3.4, chloride 93, plasma lactic acid is 2.2. Urinalysis shows a turbid appearance with trace protein, small amount of blood, large leukocyte esterase, greater than 182 white blood cells, and many white blood cell clumps. CT the abdomen and pelvis was obtained and did show an increasing fluid collection in the left lateral abdomen adjacent to the stomach measuring currently 5.5 x 3 cm, report states this is consistent with abscess. My attending did speak to the surgeon cardiology consultants Dr. Welch who agrees to admission. We'll start patient on zosyn to cover intraabdominal processes as well as urinary tract infection. She'll be admitted to medicine with surgery on consult. - Lab Data Result diagrams: 03/02/18 18:15 03/02/18 18:15 Lab Results 03/02/18 03/02/18 03/02/18 Range/Units 18:15 18:15 18:15 WBC 17.3 H (3.8-10.6) k/uL RBC 3.66 L (3.80-5.40) m/uL Hgb 9.5 L (11.4-16.0) gm/dL Hct 29.8 L (34.0-46.0) % MCV 81.4 (80.0-100.0) fL MCH 25.8 (25.0-35.0) pg MCHC 31.7 (31.0-37.0) g/dL RDW 17.6 H (11.5-15.5) % Plt Count 502 H (150-450) k/uL Neutrophils % 73 % Lymphocytes % 10 % Monocytes % 5 % Eosinophils % 10 % Basophils % 0 % Neutrophils # 12.6 H (1.3-7.7) k/uL Lymphocytes # 1.7 (1.0-4.8) k/uL Monocytes # 0.9 (0-1.0) k/uL Eosinophils # 1.8 H (0-0.7) k/uL Basophils # 0.1 (0-0.2) k/uL Poikilocytosis Slight Anisocytosis Slight Microcytosis Slight PT (9.0-12.0) sec INR (<1.2) APTT (22.0-30.0) sec Sodium 127 L (137-145) mmol/L Potassium 3.4 L (3.5-5.1) mmol/L Chloride 93 L (98-107) mmol/L Carbon Dioxide 22 (22-30) mmol/L Anion Gap 12 mmol/L BUN 9 (7-17) mg/dL Creatinine 0.50 L (0.52-1.04) mg/dL Est GFR (CKD-EPI)AfAm >90 (>60 ml/min/1.73 sqM) Est GFR (CKD-EPI)NonAf >90 (>60 ml/min/1.73 sqM) Glucose 266 H (74-99) mg/dL Lactic Ac Sepsis Rflx Plasma Lactic Acid [place] 2.2 H* (0.7-2.0) mmol/L Calcium 9.8 (8.4-10.2) mg/dL Total Bilirubin 0.3 (0.2-1.3) mg/dL AST 40 H (14-36) U/L ALT 47 (9-52) U/L Alkaline Phosphatase 306 H (38-126) U/L Total Protein 5.8 L (6.3-8.2) g/dL Albumin 2.9 L (3.5-5.0) g/dL Urine Color Urine Appearance (Clear) Urine pH (5.0-8.0) Ur Specific [place] (1.001-1.035) Urine Protein (Negative) Urine Glucose (UA) (Negative) Urine Ketones (Negative) Urine Blood (Negative) Urine Nitrite (Negative) Urine Bilirubin (Negative) Urine Urobilinogen (<2.0) mg/dL Ur Leukocyte Esterase (Negative) Urine WBC (0-5) /hpf Urine WBC Clumps (None) /hpf 03/02/18 03/02/18 03/02/18 Range/Units 18:15 18:52 20:36 WBC (3.8-10.6) k/uL RBC (3.80-5.40) m/uL Hgb (11.4-16.0) gm/dL Hct (34.0-46.0) % MCV (80.0-100.0) fL MCH (25.0-35.0) pg MCHC (31.0-37.0) g/dL RDW (11.5-15.5) % Plt Count (150-450) k/uL Neutrophils % % Lymphocytes % % Monocytes % % Eosinophils % % Basophils % % Neutrophils # (1.3-7.7) k/uL Lymphocytes # (1.0-4.8) k/uL Monocytes # (0-1.0) k/uL Eosinophils # (0-0.7) k/uL Basophils # (0-0.2) k/uL Poikilocytosis Anisocytosis Microcytosis PT 10.3 (9.0-12.0) sec INR 1.1 (<1.2) APTT 23.9 (22.0-30.0) sec Sodium (137-145) mmol/L Potassium (3.5-5.1) mmol/L Chloride (98-107) mmol/L Carbon Dioxide (22-30) mmol/L Anion Gap mmol/L BUN (7-17) mg/dL Creatinine (0.52-1.04) mg/dL Est GFR (CKD-EPI)AfAm (>60 ml/min/1.73 sqM) Est GFR (CKD-EPI)NonAf (>60 ml/min/1.73 sqM) Glucose (74-99) mg/dL Lactic Ac Sepsis Rflx Y Plasma Lactic Acid [place] (0.7-2.0) mmol/L Calcium (8.4-10.2) mg/dL Total Bilirubin (0.2-1.3) mg/dL AST (14-36) U/L ALT (9-52) U/L Alkaline Phosphatase (38-126) U/L Total Protein (6.3-8.2) g/dL Albumin (3.5-5.0) g/dL Urine Color Light Yellow Urine Appearance Turbid H (Clear) Urine pH 6.0 (5.0-8.0) Ur Specific [place] 1.017 (1.001-1.035) Urine Protein Trace H (Negative) Urine Glucose (UA) Negative (Negative) Urine Ketones Negative (Negative) Urine Blood Small H (Negative) Urine Nitrite Negative (Negative) Urine Bilirubin Negative (Negative) Urine Urobilinogen <2.0 (<2.0) mg/dL Ur Leukocyte Esterase Large H (Negative) Urine WBC >182 H (0-5) /hpf Urine WBC Clumps Many H (None) /hpf - Radiology Data Radiology results: report reviewed, image reviewed CT abdomen and pelvis with contrast was obtained. There is decrease in size of the fluid collection in the lateral right abdomen compared to old exam. There is drainage catheter that appears in good position. There is only minimal residual density that measures 2 x 1.5 cm. There is an increasing fluid collection adjacent to the stomach consistent with an abscess. This measures 3 x 2 cm on old exam and now measures 5.5 x 3 cm. There is left pleural effusion. There is patchy atelectasis at the lung bases. Pleural fluid is decreased slightly compared to old exam. Two-view x-ray of the chest is obtained. Report was reviewed in its entirety. Impression by Dr. Anderson shows significant clearing of left-sided pulmonary infiltrate and pleural thickening compared to last exam. Normal heart. Disposition Clinical Impression: Intra-abdominal abscess, Urinary tract infection, Sepsis Disposition: ADMITTED IP TO THIS HOSP Condition: Serious Decision to Admit Reason: Admit from EC Decision Date: 03/02/18 Decision Time: 21:43
[2018-03-02 18:39] LABS: Anisocytosis Slight; Basophils # (A) 0.1 k/uL (0-0.2); Basophils % (A) 0 %; Eosinophils # (A) 1.8 k/uL (0-0.7); Eosinophils % (A) 10 %; HCT 29.8 % (34.0-46.0); HGB 9.5 gm/dL (11.4-16.0); Lymphocytes # (A) 1.7 k/uL (1.0-4.8); Lymphocytes % (A) 10 %; MCH 25.8 pg (25.0-35.0); MCHC 31.7 g/dL (31.0-37.0); MCV 81.4 fL (80.0-100.0); Mean Platelet Volume 6.5; Microcytosis Slight; Monocytes # (A) 0.9 k/uL (0-1.0); Monocytes % (A) 5 %; Neutrophils # (A) 12.6 k/uL (1.3-7.7); Neutrophils % (A) 73 %; Platelet Count 502 k/uL (150-450); Poikilocytosis Slight; RBC 3.66 m/uL (3.80-5.40); RDW 17.6 % (11.5-15.5); WBC 17.3 k/uL (3.8-10.6)
[2018-03-02 18:47] LABS: ALT 47 U/L (9-52); AST 40 U/L (14-36); Albumin 2.9 g/dL (3.5-5.0); Alkaline Phosphatase 306 U/L (38-126); Anion Gap 12 mmol/L; Blood Urea Nitrogen 9 mg/dL (7-17); Calcium 9.8 mg/dL (8.4-10.2); Carbon Dioxide 22 mmol/L (22-30); Chloride 93 mmol/L (98-107); Glucose 266 mg/dL (74-99); Potassium 3.4 mmol/L (3.5-5.1); Sodium 127 mmol/L (137-145); Total Bilirubin 0.3 mg/dL (0.2-1.3); Total Protein 5.8 g/dL (6.3-8.2)
[2018-03-02 18:48] LABS: INR 1.1 (<1.2); Partial Thromboplastin Time 23.9 sec (22.0-30.0); Prothrombin Time 10.3 sec (9.0-12.0)
--- NOTE | 2018-03-02 19:29 | XR ---
EXAMINATION TYPE: XR chest 2V DATE OF EXAM: 03/02/2018 COMPARISON: 01/18/2018 HISTORY: Elevated white blood cells. Abnormal labs. Hypertension. TECHNIQUE: Frontal and lateral views of the chest are obtained. FINDINGS: There is no heart failure nor confluent pneumonic infiltrate. Exam is limited by the arms over the heart. There is no pleural effusion. Thoracic aorta is atheromatous. There are sternal wires . There are chest leads. There is some pleural thickening on the left posterior chest wall. IMPRESSION: There is significant clearing of the left side pulmonary infiltrate and pleural thickenin g compared to last exam. Normal heart.
[2018-03-02] MEDS ORDERED: SODIUM CHLORIDE 0.9% 1,000 ML IV ONE (19:55)
--- NOTE | 2018-03-02 20:06 | CT ---
EXAMINATION TYPE: CT abdomen pelvis w con DATE OF EXAM: 03/02/2018 COMPARISON: 01/29/2018 HISTORY: Elevated WBC, abdominal pain CT DLP: 1149.8 mGycm Automated exposure control for dose reduction was used. TECHNIQUE: Helical acquisition of images was performed from the lung bases through the pelvis. CONTRAST: Performed without Oral Contrast and with IV Contrast, patient injected with 100 mL of Isovue 300. FINDINGS: There is left pleural effusion. There is patchy atelectasis at the lung bases. There are numerous shannan cified splenic granulomata. Stomach appears normal. There are clips from cholecystectomy. There is no evidence of pancreatic mass. Liver shows no focal defect. Bile ducts are not dilated. Abdominal aort a is atheromatous. There is no adrenal mass. Kidneys show satisfactory contrast opacification. There is no hydronephrosi s. Ureters are not dilated. There is drainage catheter in the lateral right mid abdomen. There is rig ht-sided colostomy. There is 3 x 5.5 cm fluid collection in the left upper quadrant on the left side of the greater curvature of the stomach. There are numerous diverticula in the sigmoid colon. Bladder distends smoothly. There is no free fluid in the pelvis. There is no evidence of a pelvic mass. Uter us is anteverted. There are spondylotic changes in the lumbar spine. There is large posterior disc he rniation at L4-5 with significant bony spinal stenosis. IMPRESSION: THERE IS DECREASE IN SIZE OF THE FLUID COLLECTION IN THE LATERAL RIGHT ABDOMEN COMPARED TO OLD EXAM. THERE IS DRAINAGE CATHETER THAT APPEARS IN GOOD POSITION. THERE IS ONLY MINIMAL RESIDUAL DENSITY THAT MEASURES 2 X 1.5 CM. THERE IS AN INCREASING FLUID COLLECTION ADJACENT TO THE STOMACH CONSISTENT WITH AN ABSCESS. THIS MEASURES 3 X 2 CM ON OLD EXAM AND NOW MEASURES 5.5 X 3 CM. THERE IS LEFT PLEURAL EF FUSION. THERE IS PATCHY ATELECTASIS AT THE LUNG BASES. PLEURAL FLUID IS DECREASED SLIGHTLY COMPARED T O OLD EXAM.
[2018-03-02 20:56] LABS: Appearance,Urine Turbid (Clear); Bilirubin,Urine Negative (Negative); Blood,Urine Small (Negative); Color,Urine Light Yellow; Glucose,Urine (UA) Negative (Negative); Ketones,Urine Negative (Negative); Leukocyte Esterase,Urine Large (Negative); Nitrite,Urine Negative (Negative); Protein,Urine Trace (Negative); Specific Gravity,Urine 1.017 (1.001-1.035); Urobilinogen,Urine <2.0 mg/dL (<2.0); WBC,Urine >182 /hpf (0-5)
[2018-03-02] MEDS ORDERED: ACETAMINOPHEN TAB 325 MG TAB PO PRN (21:15)
[2018-03-02] MEDS ORDERED: NALOXONE 0.4 MG/ML 1 ML VIAL IV PRN (21:15)
[2018-03-02] MEDS ORDERED: CALCIUM CARBONATE 500 MG CHEWABLE PO PRN (21:17)
[2018-03-02] MEDS ORDERED: PIPERACILLIN-TAZOBACTAM 3.375 GM in SODIUM CHLORIDE 0.9% 100 ML IVPB STA (21:17)
[2018-03-02] MEDS ORDERED: NA PHOS,M-B/NA PHOS,DI-BA 133 ML ENEMA RECTAL PRN (21:17)
[2018-03-02] MEDS ORDERED: MAGNESIUM HYDROXIDE 2,400 MG/10 ML CUP PO PRN (21:17)
[2018-03-02] MEDS ORDERED: VANCOMYCIN IV PER PHARMACY 1 EACH MISC MISCELLANE PRN (21:17)
[2018-03-02] MEDS ORDERED: IPRATROPIUM-ALBUTEROL 3 ML NEB INHALATION PRN (21:17)
[2018-03-02] MEDS ORDERED: BISACODYL 10 MG SUPP RECTAL PRN (21:17)
[2018-03-02] MEDS ORDERED: VANCOMYCIN 1,500 MG in SODIUM CHLORIDE 0.9% 250 ML IVPB STA (21:27)
[2018-03-02] MEDS: SODIUM CHLORIDE 0.9% 1,000 ML IV SCH (22:25)
[2018-03-03 00:25] VITALS: BMI 26.9
[2018-03-03] MEDS: PIPERACILLIN-TAZOBACTAM 3.375 GM in SODIUM CHLORIDE 0.9% 100 ML IVPB SCH ×3 (06:17→23:26)
[2018-03-03] MEDS: FUROSEMIDE 40 MG TAB PO SCH ×2 (06:17→15:21)
[2018-03-03] MEDS: LEVOTHYROXINE 75 MCG TAB PO SCH (06:18)
[2018-03-03] MEDS: POTASSIUM CHLORIDE ER 10 MEQ TAB.ER.PRT PO SCH (06:18)
[2018-03-03 07:39] LABS: Anisocytosis Slight; Basophils # (A) 0.1 k/uL (0-0.2); Basophils % (A) 1 %; Eosinophils # (A) 1.8 k/uL (0-0.7); Eosinophils % (A) 11 %; HCT 31.1 % (34.0-46.0); HGB 9.9 gm/dL (11.4-16.0); Lymphocytes # (A) 1.4 k/uL (1.0-4.8); Lymphocytes % (A) 8 %; MCH 25.9 pg (25.0-35.0); MCHC 31.7 g/dL (31.0-37.0); MCV 81.8 fL (80.0-100.0); Microcytosis Slight; Monocytes # (A) 0.9 k/uL (0-1.0); Monocytes % (A) 5 %; Neutrophils # (A) 12.5 k/uL (1.3-7.7); Neutrophils % (A) 74 %; Platelet Count 558 k/uL (150-450); RBC 3.81 m/uL (3.80-5.40); RDW 17.7 % (11.5-15.5); WBC 16.8 k/uL (3.8-10.6)
[2018-03-03] MEDS ORDERED: ENSURE CLEAR PO SCH (08:00)
[2018-03-03 08:08] LABS: ALT 51 U/L (9-52); AST 39 U/L (14-36); Alkaline Phosphatase 331 U/L (38-126); Anion Gap 10 mmol/L; Blood Urea Nitrogen 9 mg/dL (7-17); Calcium 9.8 mg/dL (8.4-10.2); Carbon Dioxide 25 mmol/L (22-30); Chloride 101 mmol/L (98-107); Glucose 119 mg/dL (74-99); Potassium 3.7 mmol/L (3.5-5.1); Sodium 136 mmol/L (137-145); Total Bilirubin 0.4 mg/dL (0.2-1.3); Total Protein 5.9 g/dL (6.3-8.2)
[2018-03-03] MEDS: AMIODARONE 100 MG TAB PO SCH (08:36)
[2018-03-03] MEDS: LOSARTAN 25 MG TAB PO SCH (08:37)
[2018-03-03] MEDS: METOPROLOL TARTRATE 25 MG TAB PO SCH ×2 (08:37→21:32)
[2018-03-03] MEDS: DULoxetine HCL 60 MG CAPSULE.DR PO SCH (08:37)
[2018-03-03] MEDS: APIXABAN 5 MG TAB PO SCH ×2 (08:42→16:35)
[2018-03-03] MEDS: ONDANSETRON 4 MG/2 ML VIAL IVP PRN (08:53)
--- NOTE | 2018-03-03 12:52 | P.GSHP ---
History of Present Illness H&P Date: 03/03/18 Chief Complaint: Abdominal abscess Patient remains at the halfway. Apparently during this week she was found have a slowly increasing white blood cell count. For that reason she was sent to the hospital for evaluation. She states that she was supposed to be discharged from the halfway soon. Denies abdominal pain. Still has a drain placed in the right sided abscess site. Tolerating diet. Denies fevers. CAT scan performed after her arrival shows a slightly increasing fluid collection in the perigastric location left upper quadrant. Admitted for possible abscess. - Review of Systems Comment: The patient denies any acute changes in vision or hearing, no dysphagia or odynophagia, no chest pain or shortness of breath, no dysuria or hematuria, no headache, no runny nose, no rectal bleeding or melena, no unexplained weight loss Past Medical History Past Medical History: Atrial Fibrillation, Coronary Artery Disease (CAD), Diabetes Mellitus, Hyperlipidemia, Hypertension, Osteoarthritis (OA), Thyroid Disorder, Vascular Disorder Additional Past Medical History / Comment(s): Pt. states poor circulation in RLE due to an artificial bypass. past fall, Chronic back pain, bilateral shoulder problems djd has difficulty with rom.past uti-ecoli History of Any Multi-Drug Resistant Organisms: ESBL Date of last positivie culture/infection: 01/25/18 MDRO Source:: BODY FLUID ASPIRATE Past Surgical History: Appendectomy, Breast Surgery, Cholecystectomy, Orthopedic Surgery Additional Past Surgical History / Comment(s): "rt leg sx"artificial artery". Bilateral knee replacements. 2016-rt rotaotr cuff sxLeft breast surgery for benign tumor. Epidurals to lower back. heart cath 12-08-17, quad cabg 12-11-17, colectomy/ileostomy- has abd wound w/ wound vac. picc line since removed. Past Anesthesia/Blood Transfusion Reactions: No Reported Reaction Past Psychological History: Anxiety, Depression Smoking Status: Former smoker Past Alcohol Use History: Rare Past Drug Use History: None Reported - Past Family History Mother Family Medical History: Cancer Additional Family Medical History / Comment(s): Uterine cancer. Medications and Allergies Home Medications Medication Instructions Recorded Confirmed Type DULoxetine HCL [Cymbalta] 60 mg PO DAILY@0800 12/14/16 03/02/18 History Ergocalciferol (Vitamin D2) 50,000 unit PO TU@1700 12/14/16 03/02/18 History [Vitamin D2] Levothyroxine Sodium [Synthroid] 75 mcg PO DAILY@0600 12/14/16 03/02/18 History Cyanocobalamin [Vitamin B-12] 500 mcg PO DAILY@1700 12/04/17 03/02/18 History Calcium Carbonate [Tums] 500 mg PO QID PRN chew 01/09/18 03/02/18 Rx Ipratropium-Albuterol Nebulize 3 ml INHALATION RT-Q2H PRN 01/09/18 03/02/18 Rx [Duoneb 0.5 mg-3 mg/3 ml Soln] ampul.neb Ascorbic Acid [Vitamin C] 500 mg PO DAILY@169901/24/18 03/02/18 History Atorvastatin [Lipitor] 40 mg PO HS@209901/24/18 03/02/18 History Losartan [Cozaar] 25 mg PO DAILY@0801/24/18 03/02/18 History Acetaminophen Tab [Tylenol Tab] 325 mg PO Q4H PRN 03/02/18 03/02/18 History Amiodarone [Cordarone] 100 mg PO DAILY@0800 03/02/18 03/02/18 History Apixaban [Eliquis] 5 mg PO BID@0800,1700 03/02/18 03/02/18 History Aspirin 81 mg PO DAILY@169903/02/18 03/02/18 History Bisacodyl [Dulcolax] 10 mg RECTAL DAILY PRN 03/02/18 03/02/18 History Ensure Clear 237 ml PO TID@0800,1200,1700 03/02/18 03/02/18 History Furosemide [Lasix] 40 mg PO BID@0600,1400 03/02/18 03/02/18 History Latanoprost/Pf [Latanoprost 0.005% 1 drop RIGHT EYE HS@209903/02/18 03/02/18 History Eye Drop] Magic Cup 1 dose PO DAILY@1400 03/02/18 03/02/18 History Magnesium Hydroxide [Milk of 7,200 mg PO ONCE PRN 03/02/18 03/02/18 History Magnesia Concentrate] Metoprolol Tartrate [Lopressor] 25 mg PO BID@0800,2100 03/02/18 03/02/18 History Na Phos,M-B/Na Phos,Di-Ba [Fleet 133 ml RECTAL ONCE PRN 03/02/18 03/02/18 History Adult] Ondansetron [Zofran] 4 mg PO Q6H PRN 03/02/18 03/02/18 History Potassium Chloride [Klor-Con M15] 30 meq PO DAILY@0600 03/02/18 03/02/18 History oxyCODONE HCL 20 mg PO TID@0800,1600,0000 03/02/18 03/02/18 History Allergies Allergy/AdvReac Type Severity Reaction Status Date / Time No Known Allergies Allergy Verified 03/02/18 18:37 Surgical - Exam Vital Signs Pulse Ox 97 03/02/18 17:40 Physical exam: General: Well-developed, well-nourished HEENT: Normocephalic, sclerae nonicteric Abdomen: Nontender, nondistended, ostomy right lower quadrant, drain noted, midline incision essentially healed Extremities: No edema Neuro: Alert and oriented Results - Labs 03/03/18 06:53 03/03/18 06:53 Abnormal Lab Results - Last 24 Hours (Table) 03/02/18 03/02/18 03/02/18 Range/Units 18:15 18:15 18:15 WBC 17.3 H (3.8-10.6) k/uL RBC 3.66 L (3.80-5.40) m/uL Hgb 9.5 L (11.4-16.0) gm/dL Hct 29.8 L (34.0-46.0) % RDW 17.6 H (11.5-15.5) % Plt Count 502 H (150-450) k/uL Neutrophils # 12.6 H (1.3-7.7) k/uL Eosinophils # 1.8 H (0-0.7) k/uL Sodium 127 L (137-145) mmol/L Potassium 3.4 L (3.5-5.1) mmol/L Chloride 93 L (98-107) mmol/L Creatinine 0.50 L (0.52-1.04) mg/dL Glucose 266 H (74-99) mg/dL Plasma Lactic Acid Frederick 2.2 H* (0.7-2.0) mmol/L AST 40 H (14-36) U/L Alkaline Phosphatase 306 H (38-126) U/L Total Protein 5.8 L (6.3-8.2) g/dL Albumin 2.9 L (3.5-5.0) g/dL Urine Appearance (Clear) Urine Protein (Negative) Urine Blood (Negative) Ur Leukocyte Esterase (Negative) Urine WBC (0-5) /hpf Urine WBC Clumps (None) /hpf 03/02/18 03/03/18 03/03/18 Range/Units 20:36 06:53 06:53 WBC 16.8 H (3.8-10.6) k/uL RBC (3.80-5.40) m/uL Hgb 9.9 L (11.4-16.0) gm/dL Hct 31.1 L (34.0-46.0) % RDW 17.7 H (11.5-15.5) % Plt Count 558 H (150-450) k/uL Neutrophils # 12.5 H (1.3-7.7) k/uL Eosinophils # 1.8 H (0-0.7) k/uL Sodium 136 L (137-145) mmol/L Potassium (3.5-5.1) mmol/L Chloride (98-107) mmol/L Creatinine (0.52-1.04) mg/dL Glucose 119 H (74-99) mg/dL Plasma Lactic Acid Frederick (0.7-2.0) mmol/L AST 39 H (14-36) U/L Alkaline Phosphatase 331 H (38-126) U/L Total Protein 5.9 L (6.3-8.2) g/dL Albumin 3.0 L (3.5-5.0) g/dL Urine Appearance Turbid H (Clear) Urine Protein Trace H (Negative) Urine Blood Small H (Negative) Ur Leukocyte Esterase Large H (Negative) Urine WBC >182 H (0-5) /hpf Urine WBC Clumps Many H (None) /hpf Microbiology - Last 24 Hours (Table) 03/02/18 20:36 Urine Culture - Preliminary Urine,Catheterized Diabetes panel 03/02/18 03/03/18 Range/Units 18:15 06:53 Sodium 127 L 136 L (137-145) mmol/L Potassium 3.4 L 3.7 (3.5-5.1) mmol/L Chloride 93 L 101 (98-107) mmol/L Carbon Dioxide 22 25 (22-30) mmol/L BUN 9 9 (7-17) mg/dL Creatinine 0.50 L 0.58 (0.52-1.04) mg/dL Glucose 266 H 119 H (74-99) mg/dL Calcium 9.8 9.8 (8.4-10.2) mg/dL AST 40 H 39 H (14-36) U/L ALT 47 51 (9-52) U/L Alkaline Phosphatase 306 H 331 H (38-126) U/L Total Protein 5.8 L 5.9 L (6.3-8.2) g/dL Albumin 2.9 L 3.0 L (3.5-5.0) g/dL Calcium panel 03/02/18 03/03/18 Range/Units 18:15 06:53 Calcium 9.8 9.8 (8.4-10.2) mg/dL Albumin 2.9 L 3.0 L (3.5-5.0) g/dL Pituitary panel 03/02/18 03/03/18 Range/Units 18:15 06:53 Sodium 127 L 136 L (137-145) mmol/L Potassium 3.4 L 3.7 (3.5-5.1) mmol/L Chloride 93 L 101 (98-107) mmol/L Carbon Dioxide 22 25 (22-30) mmol/L BUN 9 9 (7-17) mg/dL Creatinine 0.50 L 0.58 (0.52-1.04) mg/dL Glucose 266 H 119 H (74-99) mg/dL Calcium 9.8 9.8 (8.4-10.2) mg/dL Adrenal panel 03/02/18 03/03/18 Range/Units 18:15 06:53 Sodium 127 L 136 L (137-145) mmol/L Potassium 3.4 L 3.7 (3.5-5.1) mmol/L Chloride 93 L 101 (98-107) mmol/L Carbon Dioxide 22 25 (22-30) mmol/L BUN 9 9 (7-17) mg/dL Creatinine 0.50 L 0.58 (0.52-1.04) mg/dL Glucose 266 H 119 H (74-99) mg/dL Calcium 9.8 9.8 (8.4-10.2) mg/dL Total Bilirubin 0.3 0.4 (0.2-1.3) mg/dL AST 40 H 39 H (14-36) U/L ALT 47 51 (9-52) U/L Alkaline Phosphatase 306 H 331 H (38-126) U/L Total Protein 5.8 L 5.9 L (6.3-8.2) g/dL Albumin 2.9 L 3.0 L (3.5-5.0) g/dL Assessment and Plan (1) Intra-abdominal abscess Narrative/Plan: Resume diet. Consult infectious disease and continue iv abx. Consult radiology for drain placement. Current Visit: Yes Status: Acute Code(s): K65.1 - PERITONEAL ABSCESS SNOMED Code(s): 53361038
[2018-03-03] MEDS ORDERED: NON-FORMULARY DRUG (Magic Cup 1 DOSE) PO SCH (14:00)
[2018-03-03] MEDS: VANCOMYCIN 1,250 MG in SODIUM CHLORIDE 0.9% 250 ML IVPB SCH (15:21)
[2018-03-03] MEDS: ASPIRIN 81 MG PO SCH (16:35)
[2018-03-03] MEDS: CYANOCOBALAMIN 500 MCG TAB PO SCH (16:35)
[2018-03-03] MEDS: ASCORBIC ACID 500 MG TAB PO SCH (16:35)
[2018-03-03] MEDS ORDERED: LORazepam 0.5 MG TAB PO PRN (17:25)
[2018-03-03] MEDS ORDERED: MELATONIN 3 MG TABLET PO PRN (17:25)
--- NOTE | 2018-03-03 17:45 | P.CONS ---
History of Present Illness - Reason for Consult Consult date: 03/03/18 - Chief Complaint leukocytosis - History of Present Illness This is a 72-year-old female patient known to ID service as she was seen on her previous admission which time she was admitted for CAD and underwent an urgent CABG 4 vessel on December 11. She subsequently developed ischemic colitisand underwent exploratory laparotomy with evidence of necrosis the transverse colon and of the right colon and consequently colectomy was performed in ileostomy was placed. she had a very slow recovery and was eventually discharged to [facility]. patient was discharged on fluconazole,Flagyl and Rocephin over she developed further abscess and during her more recent stay required percutaneous drainage of the significant abscesses. The patient has been receiving ongoing intravenous antibiotic therapy,Was being ready for discharge from the extended care facility. However she was having some difficulties and blood work was being performed there is evidence of elevating white blood cell count. Because of this she was directed to hospital. Computed tomography scan has been performed and there is evidence of increasing amount of abdominal abscess near the stomach and consequently percutaneous drainages been requested from the surgeon. The patient relates that partially she is not feeling poorly this point in time. She is not having much pain. Strength was improving but she certainly has been having significant fatigue and malaise this with her long course of recovery. She does not believe that she's had fevers and no chills or rigors of occurred. Her appetite is poor but she has been doing relatively well eating and maintaining her weight. Review of Systems Constitutional: Reports anorexia, Reports fatigue, Reports lethargy, Reports malaise, Reports poor appetite, Reports weakness, Reports weight loss, Denies chills, Denies fever Eyes: denies blurred vision, denies pain Ears, nose, mouth and throat: Denies dental pain, Denies headache, Denies mouth pain, Denies sore throat, Denies vertigo Cardiovascular: Denies chest pain, Denies dyspnea on exertion, Denies edema, Denies leg edema, Denies lightheadedness, Denies shortness of breath, Denies syncope Respiratory: Denies cough, Denies cough with sputum, Denies dyspnea, Denies excessive sputum, Denies hemoptysis, Denies home oxygen, Denies wheezing Gastrointestinal: Reports loss of appetite, Reports nausea, Reports vomiting, Denies abdominal pain, Denies diarrhea, Denies melena Genitourinary: Denies dysuria, Denies hematuria, Denies urgency, Denies urinary frequency Musculoskeletal: Reports gait dysfunction, Denies frequent falls, Denies myalgias Integumentary: Denies pruritus, Denies rash Neurological: Denies numbness, Denies weakness Psychiatric: Denies anxiety, Denies depression Endocrine: Has ongoing fatigue had significant weight loss but now seems to be stabilized Past Medical History Past Medical History: Atrial Fibrillation, Coronary Artery Disease (CAD), Diabetes Mellitus, Hyperlipidemia, Hypertension, Osteoarthritis (OA), Thyroid Disorder, Vascular Disorder Additional Past Medical History / Comment(s): Pt. states poor circulation in RLE due to an artificial bypass. past fall, Chronic back pain, bilateral shoulder problems djd has difficulty with rom.past uti-ecoli History of Any Multi-Drug Resistant Organisms: ESBL Year Discovered:: 01/25/18 MDRO Source:: BODY FLUID ASPIRATE Past Surgical History: Appendectomy, Breast Surgery, Cholecystectomy, Orthopedic Surgery Additional Past Surgical History / Comment(s): "rt leg sx"artificial artery". Bilateral knee replacements. 2016-rt rotaotr cuff sxLeft breast surgery for benign tumor. Epidurals to lower back. heart cath 12-08-17, quad cabg 12-11-17, colectomy/ileostomy- has abd wound w/ wound vac. picc line since removed. Past Anesthesia/Blood Transfusion Reactions: No Reported Reaction Past Psychological History: Anxiety, Depression Additional Psychological History / Comment(s): pt currently at [facility] since 01-09-18. Stopped smoking in 2007. No history of alcohol use. Retired. No animal exposures. No experience Smoking Status: Former smoker Past Alcohol Use History: Rare Past Drug Use History: None Reported - Past Family History Mother Family Medical History: Cancer Additional Family Medical History / Comment(s): Uterine cancer. Medications and Allergies Home Medications and Allergies Comment(s): Current Medications Acetaminophen (Tylenol Tab) 650 mg PO Q6HR PRN PRN Reason: Mild Pain or Fever > 100.5 Albuterol/Ipratropium (Duoneb 0.5 Mg-3 Mg/3 Ml Soln) 3 ml INHALATION RT-Q2H PRN PRN Reason: Shortness Of Breath Or Wheezing Amiodarone HCl (Cordarone) 100 mg PO DAILY@0800 [facility] Last Admin: 03/03/18 08:36 Dose: 100 mg Apixaban (Eliquis) 5 mg PO BID@0800,1700 [facility] Last Admin: 03/03/18 16:35 Dose: 5 mg Ascorbic Acid (Vitamin C) 500 mg PO DAILY@1700 [facility] Last Admin: 03/03/18 16:35 Dose: 500 mg Aspirin (Aspirin) 81 mg PO DAILY@1700 [facility] Last Admin: 03/03/18 16:35 Dose: 81 mg Atorvastatin Calcium (Lipitor) 40 mg PO HS@2100 [facility] Bisacodyl (Dulcolax) 10 mg RECTAL DAILY PRN PRN Reason: Constipation Calcium Carbonate/Glycine (Tums) 500 mg PO QID PRN PRN Reason: Heartburn Cyanocobalamin (Vitamin B-12) 500 mcg PO DAILY@1700 [facility] Last Admin: 03/03/18 16:35 Dose: 500 mcg Duloxetine HCl (Cymbalta) 60 mg PO DAILY@0800 [facility] Last Admin: 03/03/18 08:37 Dose: 60 mg Ergocalciferol (Vitamin D2) 50,000 unit PO TU@1700 [facility] Furosemide (Lasix) 40 mg PO BID@0600,1400 [facility] Last Admin: 03/03/18 15:21 Dose: 40 mg Sodium Chloride (Saline 0.9%) 1,000 mls @ 50 mls/hr IV .Q20H [facility] Last Admin: 03/02/18 22:25 Dose: 50 mls/hr Piperacillin Sod/Tazobactam (Sod 3.375 gm/ Sodium Chloride) 100 mls @ 25 mls/ hr IVPB Q8H [facility] Last Admin: 03/03/18 16:36 Dose: 25 mls/hr Vancomycin HCl 1,250 mg/ (Sodium Chloride) 250 mls @ 125 mls/hr IVPB Q12H [facility] Last Admin: 03/03/18 15:21 Dose: 125 mls/hr Latanoprost (Xalatan 0.005%) 1 drops RIGHT EYE HS@2100 [facility] Levothyroxine Sodium (Synthroid) 75 mcg PO DAILY@0630 [facility] Last Admin: 03/03/18 06:18 Dose: 75 mcg Lorazepam (Ativan) 0.5 mg PO Q6HR PRN PRN Reason: Anxiety Losartan Potassium (Cozaar) 25 mg PO DAILY@0800 [facility] Last Admin: 03/03/18 08:37 Dose: 25 mg Magnesium Hydroxide (Milk Of Magnesia) 2,400 mg PO ONCE PRN PRN Reason: Constipation Melatonin (Melatonin) 3 mg PO HS PRN PRN Reason: Insomnia Metoprolol Tartrate (Lopressor) 25 mg PO BID@0800,2100 [facility] Last Admin: 03/03/18 08:37 Dose: 25 mg Naloxone HCl (Narcan) 0.2 mg IV Q2M PRN PRN Reason: Opioid Reversal Ondansetron HCl (Zofran) 4 mg IVP Q8HR PRN PRN Reason: Nausea And Vomiting Last Admin: 03/03/18 08:53 Dose: 4 mg Oxycodone HCl (Oxyir) 20 mg PO TID@0800,1600,0000 [facility] Last Admin: 03/03/18 16:35 Dose: 20 mg Potassium Chloride (K-Dur 10) 30 meq PO DAILY@0600 [facility] Last Admin: 03/03/18 06:18 Dose: 30 meq Sodium Biphosphate/Sodium Phosphate (Fleet Adult) 133 ml RECTAL ONCE PRN PRN Reason: Constipation Home Medications Medication Instructions Recorded Confirmed Type DULoxetine HCL [Cymbalta] 60 mg PO DAILY@0800 12/14/16 03/02/18 History Ergocalciferol (Vitamin D2) 50,000 unit PO TU@169912/14/16 03/02/18 History [Vitamin D2] Levothyroxine Sodium [Synthroid] 75 mcg PO DAILY@0612/14/16 03/02/18 History Cyanocobalamin [Vitamin B-12] 500 mcg PO DAILY@169912/04/17 03/02/18 History Calcium Carbonate [Tums] 500 mg PO QID PRN chew 01/09/18 03/02/18 Rx Ipratropium-Albuterol Nebulize 3 ml INHALATION RT-Q2H PRN 01/09/18 03/02/18 Rx [Duoneb 0.5 mg-3 mg/3 ml Soln] ampul.neb Ascorbic Acid [Vitamin C] 500 mg PO DAILY@1700 01/24/18 03/02/18 History Atorvastatin [Lipitor] 40 mg PO HS@2100 01/24/18 03/02/18 History Losartan [Cozaar] 25 mg PO DAILY@0800 01/24/18 03/02/18 History Acetaminophen Tab [Tylenol Tab] 325 mg PO Q4H PRN 03/02/18 03/02/18 History Amiodarone [Cordarone] 100 mg PO DAILY@0800 03/02/18 03/02/18 History Apixaban [Eliquis] 5 mg PO BID@0800,1700 03/02/18 03/02/18 History Aspirin 81 mg PO DAILY@1700 03/02/18 03/02/18 History Bisacodyl [Dulcolax] 10 mg RECTAL DAILY PRN 03/02/18 03/02/18 History Ensure Clear 237 ml PO TID@0800,1200,1700 03/02/18 03/02/18 History Furosemide [Lasix] 40 mg PO BID@0600,1400 03/02/18 03/02/18 History Latanoprost/Pf [Latanoprost 0.005% 1 drop RIGHT EYE HS@2100 03/02/18 03/02/18 History Eye Drop] Magic Cup 1 dose PO DAILY@1400 03/02/18 03/02/18 History Magnesium Hydroxide [Milk of 7,200 mg PO ONCE PRN 03/02/18 03/02/18 History Magnesia Concentrate] Metoprolol Tartrate [Lopressor] 25 mg PO BID@0800,2100 03/02/18 03/02/18 History Na Phos,M-B/Na Phos,Di-Ba [Fleet 133 ml RECTAL ONCE PRN 03/02/18 03/02/18 History Adult] Ondansetron [Zofran] 4 mg PO Q6H PRN 03/02/18 03/02/18 History Potassium Chloride [Klor-Con M15] 30 meq PO DAILY@0600 03/02/18 03/02/18 History oxyCODONE HCL 20 mg PO TID@0800,1600,0000 03/02/18 03/02/18 History Allergies Allergy/AdvReac Type Severity Reaction Status Date / Time No Known Allergies Allergy Verified 03/02/18 18:37 Physical Exam Vitals: Vital Signs Temp Pulse Pulse Resp BP BP Pulse Ox 03/03/18 15:38 79 16 03/03/18 08:00 79 16 03/03/18 05:00 98.0 F 79 16 124/60 96 03/03/18 00:20 98.3 F 73 16 110/62 99 03/03/18 00:00 12 03/02/18 23:40 97.9 F 75 12 110/65 96 03/02/18 23:30 77 22 105/66 95 03/02/18 23:20 75 14 105/66 94 L 03/02/18 23:10 76 12 105/66 95 03/02/18 23:00 75 6 L 112/67 96 03/02/18 22:50 73 12 112/67 96 03/02/18 22:40 74 4 L 112/67 98 03/02/18 22:30 72 9 L 110/65 98 03/02/18 22:20 71 5 L 110/65 99 03/02/18 22:10 69 3 L 110/65 98 03/02/18 22:00 98.3 F 71 8 L 103/58 98 03/02/18 21:50 72 14 103/58 97 03/02/18 21:40 71 17 103/58 97 03/02/18 21:30 69 5 L 93/58 93 L 03/02/18 21:20 67 10 L 93/58 97 03/02/18 21:10 67 7 L 93/58 99 03/02/18 21:00 67 19 99/64 97 03/02/18 20:50 68 14 99/64 100 03/02/18 20:40 67 6 L 99/64 98 03/02/18 20:30 68 13 100/61 94 L 03/02/18 20:25 71 18 100/61 96 03/02/18 20:20 71 11 L 100/61 97 03/02/18 20:10 71 8 L 100/61 97 03/02/18 20:00 71 16 100/66 98 03/02/18 19:50 68 17 100/66 97 03/02/18 19:40 100/66 03/02/18 19:30 72 14 116/80 95 03/02/18 19:20 71 13 116/80 97 03/02/18 19:11 74 18 116/80 97 03/02/18 19:10 70 13 116/80 96 03/02/18 19:00 73 37 H 113/72 97 03/02/18 18:50 72 16 113/72 97 03/02/18 18:40 71 14 113/72 99 03/02/18 18:30 108/74 03/02/18 18:20 70 15 108/74 98 03/02/18 18:10 108/74 03/02/18 18:00 118/67 98 03/02/18 17:50 118/67 98 03/02/18 17:41 98.1 F 69 18 118/67 96 03/02/18 17:40 97 Intake and Output 03/03/18 03/03/18 03/03/18 06:59 14:59 22:59 Intake Total 1000 240 Output Total 150 150 150 Balance 850 90 -150 Intake: IV 100 Piperacillin-Tazobactam 3 100 .375 gm In Sodium Chloride 0.9% 100 ml @ 25 mls/hr IVPB ONCE STA Rx# :[id number] Intake, IV Titration 900 Amount Piperacillin-Tazobactam 3 100 .375 gm In Sodium Chloride 0.9% 100 ml @ 25 mls/hr IVPB ONCE STA Rx# :[id number] Piperacillin-Tazobactam 3 150 .375 gm In Sodium Chloride 0.9% 100 ml @ 25 mls/hr IVPB Q8H [facility] Rx#: [id number] Sodium Chloride 0.9% 1, 400 000 ml @ 50 mls/hr IV . Q20H [facility] Rx#:[id number] Vancomycin 1,250 mg In 250 Sodium Chloride 0.9% 250 ml @ 125 mls/hr IVPB Q12H [facility] Rx#:[id number] Oral 0 240 Output: Stool 150 150 150 Other: Voiding Method Diaper Diaper Diaper # Voids 1 2 Weight 68.94 kg Pleasant 72-year-old woman who is not in acute distress at this time. HEENT: Anicteric conjunctiva are pink and moist nasal mucosa grossly intact without significant lesions, there is no thrush. Neck: The neck is supple without significant lymphadenopathy or thyromegaly. Lungs: They're symmetrical air entry with few basilar crackles no bronchial sounds are heard in all dullness or egophony Heart: Regular rate and rhythm with an audible S1-S2, no S3 no S4. There is no significant murmur click or rub, PMI was nondisplaced. Abdomen: Positive bowel sounds soft is evidence of some mild tenderness in the left upper quadrant but no palpable masses or organomegaly. There was no guarding or rebound. Extremities: The upper extremities have excellent pulses they are symmetric, no significant petechiae or telangiectasia. No splinter hemorrhages were noted. The lower extremities are free from significant edema. The peripheral pulses were 2+ and symmetric. Neuro: Awake alert oriented to person place and time. There are no acute new gross focal sensory motor deficits. Results CBC & Chem 7: 03/03/18 06:53 03/03/18 06:53 Labs: Abnormal Lab Results - Last 24 Hours (Table) 03/02/18 03/02/18 03/02/18 Range/Units 18:15 18:15 18:15 WBC 17.3 H (3.8-10.6) k/uL RBC 3.66 L (3.80-5.40) m/uL Hgb 9.5 L (11.4-16.0) gm/dL Hct 29.8 L (34.0-46.0) % RDW 17.6 H (11.5-15.5) % Plt Count 502 H (150-450) k/uL Neutrophils # 12.6 H (1.3-7.7) k/uL Eosinophils # 1.8 H (0-0.7) k/uL Sodium 127 L (137-145) mmol/L Potassium 3.4 L (3.5-5.1) mmol/L Chloride 93 L (98-107) mmol/L Creatinine 0.50 L (0.52-1.04) mg/dL Glucose 266 H (74-99) mg/dL Plasma Lactic Acid Frederick 2.2 H* (0.7-2.0) mmol/L AST 40 H (14-36) U/L Alkaline Phosphatase 306 H (38-126) U/L Total Protein 5.8 L (6.3-8.2) g/dL Albumin 2.9 L (3.5-5.0) g/dL Urine Appearance (Clear) Urine Protein (Negative) Urine Blood (Negative) Ur Leukocyte Esterase (Negative) Urine WBC (0-5) /hpf Urine WBC Clumps (None) /hpf 03/02/18 03/03/18 03/03/18 Range/Units 20:36 06:53 06:53 WBC 16.8 H (3.8-10.6) k/uL RBC (3.80-5.40) m/uL Hgb 9.9 L (11.4-16.0) gm/dL Hct 31.1 L (34.0-46.0) % RDW 17.7 H (11.5-15.5) % Plt Count 558 H (150-450) k/uL Neutrophils # 12.5 H (1.3-7.7) k/uL Eosinophils # 1.8 H (0-0.7) k/uL Sodium 136 L (137-145) mmol/L Potassium (3.5-5.1) mmol/L Chloride (98-107) mmol/L Creatinine (0.52-1.04) mg/dL Glucose 119 H (74-99) mg/dL Plasma Lactic Acid Frederick (0.7-2.0) mmol/L AST 39 H (14-36) U/L Alkaline Phosphatase 331 H (38-126) U/L Total Protein 5.9 L (6.3-8.2) g/dL Albumin 3.0 L (3.5-5.0) g/dL Urine Appearance Turbid H (Clear) Urine Protein Trace H (Negative) Urine Blood Small H (Negative) Ur Leukocyte Esterase Large H (Negative) Urine WBC >182 H (0-5) /hpf Urine WBC Clumps Many H (None) /hpf Microbiology - Last 24 Hours (Table) 03/02/18 18:15 Blood Culture Gram Stain - Preliminary Blood 03/02/18 18:15 Blood Culture - Final Blood 03/02/18 20:36 Urine Culture - Preliminary Urine,Catheterized Laboratory Results WBC 16.8 k/uL (3.8-10.6) H 03/03/18 06:53 RBC 3.81 m/uL (3.80-5.40) 03/03/18 06:53 Hgb 9.9 gm/dL (11.4-16.0) L 03/03/18 06:53 Hct 31.1 % (34.0-46.0) L 03/03/18 06:53 MCV 81.8 fL (80.0-100.0) 03/03/18 06:53 MCH 25.9 pg (25.0-35.0) 03/03/18 06:53 MCHC 31.7 g/dL (31.0-37.0) 03/03/18 06:53 RDW 17.7 % (11.5-15.5) H 03/03/18 06:53 Plt Count 558 k/uL (150-450) H 03/03/18 06:53 Neutrophils % 74 % 03/03/18 06:53 Lymphocytes % 8 % 03/03/18 06:53 Monocytes % 5 % 03/03/18 06:53 Eosinophils % 11 % 03/03/18 06:53 Basophils % 1 % 03/03/18 06:53 Neutrophils # 12.5 k/uL (1.3-7.7) H 03/03/18 06:53 Lymphocytes # 1.4 k/uL (1.0-4.8) 03/03/18 06:53 Monocytes # 0.9 k/uL (0-1.0) 03/03/18 06:53 Eosinophils # 1.8 k/uL (0-0.7) H 03/03/18 06:53 Basophils # 0.1 k/uL (0-0.2) 03/03/18 06:53 Poikilocytosis Slight 03/02/18 18:15 Anisocytosis Slight 03/03/18 06:53 Microcytosis Slight 03/03/18 06:53 PT 10.3 sec (9.0-12.0) 03/02/18 18:15 INR 1.1 (<1.2) 03/02/18 18:15 APTT 23.9 sec (22.0-30.0) 03/02/18 18:15 Sodium 136 mmol/L (137-145) L 03/03/18 06:53 Potassium 3.7 mmol/L (3.5-5.1) 03/03/18 06:53 Chloride 101 mmol/L (98-107) 03/03/18 06:53 Carbon Dioxide 25 mmol/L (22-30) 03/03/18 06:53 Anion Gap 10 mmol/L 03/03/18 06:53 BUN 9 mg/dL (7-17) 03/03/18 06:53 Creatinine 0.58 mg/dL (0.52-1.04) 03/03/18 06:53 Est GFR (CKD-EPI)AfAm >90 (>60 ml/min/1.73 sqM) 03/03/18 06:53 Est GFR (CKD-EPI)NonAf >90 (>60 ml/min/1.73 sqM) 03/03/18 06:53 Glucose 119 mg/dL (74-99) H 03/03/18 06:53 Lactic Ac Sepsis Rflx Y 03/02/18 18:52 Plasma Lactic Acid Frederick 2.0 mmol/L (0.7-2.0) 03/02/18 22:10 Calcium 9.8 mg/dL (8.4-10.2) 03/03/18 06:53 Total Bilirubin 0.4 mg/dL (0.2-1.3) 03/03/18 06:53 AST 39 U/L (14-36) H 03/03/18 06:53 ALT 51 U/L (9-52) 03/03/18 06:53 Alkaline Phosphatase 331 U/L (38-126) H 03/03/18 06:53 Total Protein 5.9 g/dL (6.3-8.2) L 03/03/18 06:53 Albumin 3.0 g/dL (3.5-5.0) L 03/03/18 06:53 Urine Color Light Yellow 03/02/18 20:36 Urine Appearance Turbid (Clear) H 03/02/18 20:36 Urine pH 6.0 (5.0-8.0) 03/02/18 20:36 Ur Specific [place] 1.017 (1.001-1.035) 03/02/18 20:36 Urine Protein Trace (Negative) H 03/02/18 20:36 Urine Glucose (UA) Negative (Negative) 03/02/18 20:36 Urine Ketones Negative (Negative) 03/02/18 20:36 Urine Blood Small (Negative) H 03/02/18 20:36 Urine Nitrite Negative (Negative) 03/02/18 20:36 Urine Bilirubin Negative (Negative) 03/02/18 20:36 Urine Urobilinogen <2.0 mg/dL (<2.0) 03/02/18 20:36 Ur Leukocyte Esterase Large (Negative) H 03/02/18 20:36 Urine WBC >182 /hpf (0-5) H 03/02/18 20:36 Urine WBC Clumps Many /hpf (None) H 03/02/18 20:36 Microbiology 03/02/18 18:15 Blood Blood Culture Gram Stain - Preliminary 03/02/18 18:15 Blood Blood Culture - Final 03/02/18 20:36 Urine,Catheterized Urine Culture - Preliminary Assessment and Plan (1) Intra-abdominal abscess Narrative/Plan: 72-year-old woman who has a very significant recent past medical history regarding her underlying coronary artery disease. Underwent a coronary artery bypass grafting procedure and has difficulty in complications. Since that time she had a significant interabdominal infection which is required several interventions. She was started have some improvement getting near the completion of course of antibiotic therapy for her most recent abscess there is evidence of some increasing leukocytosis. She was brought to hospital with evidence of the increasing white blood cell count in computed tomography scan was performed showing evidence of increased abscess near the stomach. She was seen by her general surgeon there are plans for percutaneous drainage to the site to further drain this area. Based on prior cultures is evidence of an E. coli ESBL as well as of an enterococcal species. Antibiotic therapy this point in time will be with ertapenem and vancomycin pending further culture results. Current Visit: Yes Status: Acute Code(s): K65.1 - PERITONEAL ABSCESS SNOMED Code(s): 15012446 (2) Leukocytosis Current Visit: Yes Status: Acute Code(s): D72.829 - ELEVATED WHITE BLOOD CELL COUNT, UNSPECIFIED SNOMED Code(s): 371337207
[2018-03-03] MEDS: ERTAPENEM 1 GM in SODIUM CHLORIDE 0.9% 50 ML IVPB SCH (18:37)
[2018-03-03 19:59] LABS: Glucose,Whole Blood 229 mg/dL (75-99)
[2018-03-03] MEDS: INSULIN ASPART 100 UNIT/ML 1 ML 10 ML VIAL SQ SCH (21:32)
[2018-03-03] MEDS: LATANOPROST 0.005% OPHTH DROPS 2.5 ML BTL RIGHT EYE SCH (21:32)
[2018-03-03] MEDS: ATORVASTATIN 40 MG TAB PO SCH (21:32)
--- NOTE | 2018-03-03 21:32 | CONS ---
CONSULTATION DATE OF CONSULTATION: 03/03/2018. REASON FOR CONSULTATION: Medical management requested by Dr. Montoya. CONSULTATION: This is a very pleasant 72-year-old patient who was discharged from the hospital on 02/06/2018. Patient was initially discharged from the hospital on 01/09/2018 when patient had a coronary bypass followed by ischemic bowel resulting in ostomy and a wound VAC. The patient was then readmitted on 01/26/2018 with nausea, vomiting, abdominal pain. CT scan showed intraabdominal abscess, drain was placed. Subsequently, another drain was placed. The patient started to do well and the patient was subsequently discharged on Diflucan 200 mg p.o. q.8 and meropenem 2 g IV piggyback q.8 days for eight days and discharged to [facility] under Dr. Alcala. The patient is being followed by Dr. Montoya. The patient has started to do well. Appetite is getting better. The patient was ambulatory. The patient was draining very minimal now. The patient started off with having increasing nausea, not feeling well, abdominal discomfort, some slight abdominal discomfort and white count started going up. The patient presented to the ER. CT scan showed a new abscess around the stomach area and was admitted by Dr. Montoya. Seen by Dr. Crum earlier today. Interventional Radiology was consulted for placement of a new MASTER drain. Otherwise, ostomy bag has been working fine. REVIEW OF SYSTEMS: CONSTITUTIONAL: Tired. HEENT: None. RESPIRATORY: None. GASTROINTESTINAL: As above. GENITOURINARY: None. MUSCULOSKELETAL: None. DERMATOLOGICAL, HEMATOLOGIC, LYMPHATICS: None. PSYCHIATRY: None. NEUROLOGICAL: None. PAST MEDICAL HISTORY: Coronary artery disease with bypass, acute ischemic bowel with perforation, paroxysmal atrial fibrillation, peripheral artery disease, hypothyroid, diabetes mellitus type 2, chronic low back pain from arthritis, depression, hyperlipidemia, hypertension, postop intraabdominal abscess eye. PAST SURGICAL HISTORY: Coronary artery bypass on December 11, 2017. Acute ischemic bowel leading to perforation and right transverse colectomy and resulting in ileostomy, appendectomy, breast surgery, cholecystectomy, bilateral knee replacement, right rotator cuff surgery, left breast surgery for benign tumor, epidural to the lower back. PSYCH HISTORY: Anxiety and depression. SOCIAL HISTORY: Currently at [facility]. No alcohol. Patient smoked for 43 years. Stopped in 2018. . FAMILY HISTORY: Uterine cancer. HOME MEDICATIONS: 1. Oxycodone 20 mg p.o. t.i.d. 2. Potassium 30 mEq p.o. daily. 3. Zofran 4 mg q.6h p.r.n. 4. Adult Fleet's p.r.n. 5. Lopressor 25 mg p.o. b.i.d. 6. Milk of magnesia p.r.n. 7. Magic Cup 1 dose p.o. daily. 8. Cozaar 25 mg p.o. daily. 9. Synthroid 75 mcg p.o. daily. 10.Latanoprost 1 drop right eye q.h.s. 11.DuoNeb 3 mL q.2 p.r.n. 12.Lasix 40 mg p.o. b.i.d. 13.Vitamin D2 50,000 units p.o. Monday. 14.Ensure 1 can p.o. t.i.d. 15.Cymbalta 60 mg p.o. daily. 16.Vitamin B12 500 mcg p.o. daily. 17.Tums 500 mcg p.o. q.i.d. p.r.n. 18.Dulcolax p.r.n. 19.Lipitor 40 mg q.h.s. 20.Aspirin 81 mg p.o. daily. 21.Vitamin C 500 mg p.o. daily. 22.Eliquis 5 mg p.o. b.i.d. 23.Amiodarone 100 mg p.o. daily. 24.Tylenol 325 p.o. q.4 p.r.n. ALLERGIES: None. PHYSICAL EXAMINATION: VITAL SIGNS ON PRESENTATION: Temperature 97, pulse 72, respiration 16, blood pressure 106/59, pulse ox 98% on room air. GENERAL APPEARANCE: Average built, sitting up, tired-appearing. EYES: Pupils equal. Slight exophthalmos with prominence of the white of the eye. HEENT: External appearance of nose and ears normal. Oral cavity normal. NECK: JVD not raised. Mass not palpable. RESPIRATORY: Effort normal. LUNGS: Diminished breath sounds. CARDIOVASCULAR: 1st and 2nd sounds no edema. ABDOMEN: Soft. Minimal tenderness. Drain in place and ileostomy bag. Liver and spleen not palpable. Lymphatics no lymph nodes palpable in the neck and axillae. PSYCHIATRY: Alert and oriented x3. Mood and affect slightly anxious-appearing. NEUROLOGICAL: Pupils equal. Cranial nerves grossly intact. Power and sensation grossly intact. INVESTIGATIONS: White count 7.3, hemoglobin 9.5, platelets 502, potassium 3.4, sodium 127, BUN 9, creatinine 0.5, albumin 2.9. CT scan of the abdomen and pelvis shows a new abscess around the stomach area and sigmoid diverticulosis. Chest x-ray film personally reviewed by me shows slight cardiomegaly. No fluid overload. ASSESSMENT: 1. Recurrent intraabdominal abscess in a patient with known history of recent ischemic bowel with previous cultures positive for E coli and group B Enterococcus faecium. The patient has had at least 2 or 3 abdominal drains recently. 2. Coronary artery disease with coronary bypass in November of this year. 3. Ischemic bowel with perforation right transverse colectomy with ileostomy from November of this year. 4. Paroxysmal atrial fibrillation currently in sinus rhythm on Eliquis. 5. Peripheral artery disease. 6. Hypothyroidism. 7. Diabetes mellitus type 2. Currently off hypoglycemics. 8. Chronic low back pain from arthritis. 9. Depression, not otherwise specified. 10.Hyperlipidemia. 11.Moderate protein-calorie malnutrition decreased oral intake. 12.Essential hypertension. 13.Possible over replacement with Synthroid given that the patient has lost weight. The patient's current dose of Synthroid may be too much for her. 14.Reactive thrombocytosis. 15.Hyponatremia, likely hypoosmolar on presentation. PLAN: Home medications are resumed. The patient is started on IV Zosyn and vancomycin. Dr. Mccartney from Infectious Disease consulted to whom patient is known. Care was discussed with the patient. Eliquis is to continue. We will check the patient's TSH and free T4. Clinically patient may be a bit over replaced. Thank you, Dr. Montoya. Copy to Dr. Alcala. MMODL / IJN: [id number] /
[2018-03-03] MEDS: SODIUM CHLORIDE 0.9% 1,000 ML IV SCH (21:36)
[2018-03-04] MEDS: VANCOMYCIN 1,250 MG in SODIUM CHLORIDE 0.9% 250 ML IVPB SCH ×2 (02:37→13:53)
[2018-03-04] MEDS: PIPERACILLIN-TAZOBACTAM 3.375 GM in SODIUM CHLORIDE 0.9% 100 ML IVPB SCH ×3 (06:09→23:32)
[2018-03-04] MEDS: POTASSIUM CHLORIDE ER 10 MEQ TAB.ER.PRT PO SCH (06:09)
[2018-03-04] MEDS: LEVOTHYROXINE 75 MCG TAB PO SCH (06:09)
[2018-03-04] MEDS: FUROSEMIDE 40 MG TAB PO SCH ×2 (06:09→13:54)
[2018-03-04 07:06] LABS: Glucose,Whole Blood 156 mg/dL (75-99)
[2018-03-04] MEDS: APIXABAN 5 MG TAB PO SCH ×3 (08:09→11:36)
[2018-03-04] MEDS: DULoxetine HCL 60 MG CAPSULE.DR PO SCH (08:09)
[2018-03-04] MEDS: LOSARTAN 25 MG TAB PO SCH (08:09)
[2018-03-04] MEDS: AMIODARONE 100 MG TAB PO SCH (08:09)
[2018-03-04] MEDS: INSULIN ASPART 100 UNIT/ML 1 ML 10 ML VIAL SQ SCH ×4 (08:10→20:26)
[2018-03-04] MEDS: METOPROLOL TARTRATE 25 MG TAB PO SCH ×2 (08:10→20:26)
[2018-03-04] MEDS: ASPIRIN 81 MG PO SCH ×2 (11:34→16:33)
[2018-03-04 12:30] LABS: Glucose,Whole Blood 135 mg/dL (75-99)
--- NOTE | 2018-03-04 12:41 | P.PN ---
Subjective Progress Note Date: 03/04/18 Principal diagnosis: Abdominal abscess Patient feels well today. Denies abdominal pain. She is afebrile. No labs from this morning. Objective - Vital Signs Vital signs: Vital Signs Temp 97.7 F 03/04/18 04:53 Pulse 62 03/04/18 08:30 Resp 16 03/04/18 08:30 BP 105/56 03/04/18 04:53 Pulse Ox 93 L 03/04/18 04:53 Intake & Output 03/03/18 03/04/18 03/04/18 19:59 06:59 18:59 Intake Total 480 Output Total 400 Balance 80 Intake: Intake, IV Titration Amount Piperacillin-Tazobactam 3 .375 gm In Sodium Chloride 0.9% 100 ml @ 25 mls/hr IVPB Q8H [facility] Rx#: [id number] Sodium Chloride 0.9% 1, 000 ml @ 50 mls/hr IV . Q20H [facility] Rx#:[id number] Vancomycin 1,250 mg In Sodium Chloride 0.9% 250 ml @ 125 mls/hr IVPB Q12H [facility] Rx#:[id number] Oral 480 Output: Stool 400 Other: Voiding Method Diaper # Voids 3 - Exam Abdomen: Soft, mild upper abdominal tenderness - Labs CBC & Chem 7: 03/03/18 06:53 03/03/18 06:53 Labs: Abnormal Lab Results - Last 24 Hours (Table) 03/03/18 03/04/18 03/04/18 Range/Units 19:58 07:05 12:29 POC Glucose (mg/dL) 229 H 156 H 135 H (75-99) mg/dL Microbiology - Last 24 Hours (Table) 03/02/18 18:15 Blood Culture Gram Stain - Preliminary Blood 03/02/18 20:36 Urine Culture - Final Urine,Catheterized 03/02/18 22:20 Blood Culture - Preliminary Blood No Growth after 24 hours 03/02/18 18:15 Blood Culture - Final Blood Assessment and Plan (1) Intra-abdominal abscess Narrative/Plan: We'll consult interventional radiology for percutaneous drain placement tomorrow. Continue antibiotics. Current Visit: Yes Status: Acute Code(s): K65.1 - PERITONEAL ABSCESS SNOMED Code(s): 63157384
[2018-03-04] MEDS: SODIUM CHLORIDE 0.9% 1,000 ML IV SCH (13:54)
[2018-03-04] MEDS: ASCORBIC ACID 500 MG TAB PO SCH (16:49)
[2018-03-04] MEDS: CYANOCOBALAMIN 500 MCG TAB PO SCH (16:49)
[2018-03-04 17:36] LABS: Glucose,Whole Blood 153 mg/dL (75-99)
[2018-03-04 20:24] LABS: Glucose,Whole Blood 186 mg/dL (75-99)
[2018-03-04] MEDS: LATANOPROST 0.005% OPHTH DROPS 2.5 ML BTL RIGHT EYE SCH (20:26)
[2018-03-04] MEDS: ATORVASTATIN 40 MG TAB PO SCH (20:26)
[2018-03-04] MEDS: ERTAPENEM 1 GM in SODIUM CHLORIDE 0.9% 50 ML IVPB SCH (21:11)
--- NOTE | 2018-03-04 21:56 | PN ---
PROGRESS NOTE DATE OF SERVICE: 03/04/2018. PRESENTING COMPLAINT: Abdominal abscess. INTERVAL HISTORY: This is a patient with ischemic bowel with recurrent intraabdominal abscess yet again presented with the same. Plan is to get a new MASTER drain placed by Interventional Radiology on Monday. The patient is on IV antibiotics. Did tolerate some diet. Lying in bed. Abdominal discomfort was present. Feels weak and tired. REVIEW OF SYSTEMS: Done for constitutional, cardiovascular, GI, pulmonary and relevant findings as above. CURRENT MEDICATIONS: Reviewed that include IV meropenem, IV vancomycin and IV Zosyn. PHYSICAL EXAMINATION: VITAL SIGNS: Temperature 98.3, pulse 77, respiratory rate 16, blood pressure 123/62, pulse ox 98% on room air. GENERAL: Lying in bed, tired appearing. EYES: Pupils equal. Conjunctivae normal. HEENT: External appearance of nose and ears normal. Oral cavity normal. NECK: JVD not raised. Mass not palpable. RESPIRATORY: Effort increased. LUNGS: Decreased breath sounds. CARDIOVASCULAR: 1st and 2nd sounds normal. No edema. ABDOMEN: Soft. Minimal tenderness. Drain in place. Ileostomy bag in place. Liver and spleen not palpable. PSYCHIATRY: Alert and oriented x3. Mood and affect normal. INVESTIGATIONS: White count 16.8, hemoglobin 9.9, potassium 3.7. BUN and creatinine is normal. TSH normal. ASSESSMENT: 1. Recurrent intraabdominal abscess in a patient with known history of recent ischemic bowel with previous cultures positive for E coli and group B Enterococcus faecalis. 2. Coronary artery disease with coronary artery bypass in November of this year. 3. The patient blood cultures this admission seem to be showing contamination. 4. Acute ischemic bowel with perforation right transverse colectomy and ileostomy from November of this year. 5. Paroxysmal atrial fibrillation currently in sinus rhythm on Eliquis. 6. Peripheral artery disease. 7. Hypothyroidism. 8. Diabetes mellitus type 2, currently on hypoglycemics. 9. Chronic low back pain from arthritis. 10.Depression, not otherwise specified. 11.Hyperlipidemia. 12.Moderate protein-calorie malnutrition from decreased oral intake. 13.Essential hypertension. 14.Hypothyroid with patient's TSH being normal. 15.Reactive thrombocytosis. 16.Hyponatremia, likely hypoosmolar on presentation. PLAN: Care was discussed with the patient. Continue with IV Zosyn, IV vancomycin and meropenem. Await interventional radiology to place a new drain. Care was discussed with the patient. Follow. MMODL / IJN: [id number] /
[2018-03-05] MEDS ORDERED: VANCOMYCIN TROUGH DUE 1 EACH MISC MISCELLANE ONE (01:00)
[2018-03-05] MEDS: VANCOMYCIN 1,250 MG in SODIUM CHLORIDE 0.9% 250 ML IVPB SCH ×2 (02:18→15:35)
[2018-03-05] MEDS: LEVOTHYROXINE 75 MCG TAB PO SCH (06:17)
[2018-03-05] MEDS: FUROSEMIDE 40 MG TAB PO SCH ×2 (06:18→15:36)
[2018-03-05] MEDS: PIPERACILLIN-TAZOBACTAM 3.375 GM in SODIUM CHLORIDE 0.9% 100 ML IVPB SCH ×3 (06:23→22:36)
[2018-03-05 06:58] LABS: Glucose,Whole Blood 133 mg/dL (75-99)
[2018-03-05 08:25] LABS: Anisocytosis Slight; Basophils # (A) 0.1 k/uL (0-0.2); Basophils % (A) 1 %; Eosinophils # (A) 0.7 k/uL (0-0.7); Eosinophils % (A) 5 %; HCT 30.9 % (34.0-46.0); HGB 10.1 gm/dL (11.4-16.0); Lymphocytes # (A) 1.4 k/uL (1.0-4.8); Lymphocytes % (A) 11 %; MCHC 32.5 g/dL (31.0-37.0); MCV 79.9 fL (80.0-100.0); Mean Platelet Volume 6.6; Microcytosis Slight; Monocytes # (A) 0.8 k/uL (0-1.0); Monocytes % (A) 6 %; Neutrophils # (A) 10.4 k/uL (1.3-7.7); Neutrophils % (A) 77 %; Platelet Count 584 k/uL (150-450); RBC 3.87 m/uL (3.80-5.40); RDW 17.1 % (11.5-15.5); WBC 13.5 k/uL (3.8-10.6)
[2018-03-05 08:29] LABS: Anion Gap 9 mmol/L; Blood Urea Nitrogen 7 mg/dL (7-17); Calcium 9.4 mg/dL (8.4-10.2); Carbon Dioxide 26 mmol/L (22-30); Chloride 101 mmol/L (98-107); Glucose 109 mg/dL (74-99); Potassium 3.1 mmol/L (3.5-5.1); Sodium 136 mmol/L (137-145)
[2018-03-05] MEDS: SODIUM CHLORIDE 0.9% 1,000 ML IV SCH (09:26)
[2018-03-05] MEDS: APIXABAN 5 MG TAB PO SCH ×2 (09:26→15:45)
[2018-03-05] MEDS: LOSARTAN 25 MG TAB PO SCH (09:30)
[2018-03-05] MEDS: METOPROLOL TARTRATE 25 MG TAB PO SCH ×2 (09:30→21:40)
[2018-03-05] MEDS: POTASSIUM CHLORIDE ER 10 MEQ TAB.ER.PRT PO SCH (09:30)
[2018-03-05] MEDS: INSULIN ASPART 100 UNIT/ML 1 ML 10 ML VIAL SQ SCH ×4 (09:32→21:42)
[2018-03-05 11:31] LABS: Glucose,Whole Blood 176 mg/dL (75-99)
[2018-03-05] MEDS: AMIODARONE 100 MG TAB PO SCH (11:37)
[2018-03-05] MEDS ORDERED: HYDROmorphone 1 MG/ML 1 ML SYRINGE IVP STA (12:36)
--- NOTE | 2018-03-05 13:07 | CT ---
CT DLP: 1217 mGycm Automated exposure control for dose reduction was used. EXAMINATION TYPE: CT guided abscess drainage DATE OF EXAM: 03/05/2018 HISTORY: Abdominal abscess COMPARISON: CT 03/02/2018 PROCEDURE: Maximal barrier technique was utilized. The skin over suitable path to the left upper quadrant abdom inal abscess was localized with CT and the overlying skin prepped and draped. Lidocaine was used for local anesthesia. A skin elizabeth made with a scalpel. Access was gained using CT guidance with a 21-g auge needle, purulent material returned in the hub of the needle. A 0.018 inch wire was advanced and the access site was upsized, the wire was upsized and subsequently an 8.5-Indonesian drain was deployed within the abscess cavity and fixed in place. Catheter attached to gravity drainage. No immediate c omplication. Purulent material sent for laboratory analysis and draining into the bag. The patient remained in stable condition. 20 cc purulent material obtained. IMPRESSION: STATUS POST CT GUIDED ABSCESS DRAINAGE, MICROBIOLOGY ANALYSIS IS PENDING. THIS PROCEDURE WAS PERFORM ED BY THE UNDERSIGNED.
[2018-03-05] MEDS: DULoxetine HCL 60 MG CAPSULE.DR PO SCH (15:36)
[2018-03-05] MEDS: ASPIRIN 81 MG PO SCH (15:45)
[2018-03-05] MEDS: ASCORBIC ACID 500 MG TAB PO SCH (15:45)
[2018-03-05] MEDS: CYANOCOBALAMIN 500 MCG TAB PO SCH (15:46)
[2018-03-05 17:45] LABS: Glucose,Whole Blood 124 mg/dL (75-99)
[2018-03-05] MEDS: ERTAPENEM 1 GM in SODIUM CHLORIDE 0.9% 50 ML IVPB SCH (18:47)
[2018-03-05 20:27] LABS: Glucose,Whole Blood 183 mg/dL (75-99)
--- NOTE | 2018-03-05 21:36 | PN ---
PROGRESS NOTE DATE OF SERVICE: 03/05/2018 PRESENTING COMPLAINT: Intraabdominal abscess. INTERVAL HISTORY: This is a patient with ischemic bowel following coronary bypass recently with already a MASTER drain in place from before. Presented now with a new intraabdominal abscess site. The patient had Interventional Radiology placed another MASTER drain today. Old MASTER drain was to be removed, but still present. No nausea, vomiting. Does feel a bit tired on IV antibiotics. Has a ileostomy bag in place. REVIEW OF SYSTEMS: Done for constitutional, cardiovascular, GI, pulmonary; relevant findings as above. CURRENT MEDICATIONS: Reviewed that include IV meropenem and IV Zosyn and IV Vancomycin. PHYSICAL EXAMINATION: VITAL SIGNS: Temperature 97.9, pulse 60, respiration 16, blood pressure 93/53, pulse ox 98% on room air. GENERAL APPEARANCE: Lying in bed, tired appearing. EYES: Pupils equal. Conjunctivae normal. HEENT: External appearance of nose and ears normal. Oral cavity normal. NECK: JVD not raised. Mass not palpable. RESPIRATORY: Effort normal. LUNGS: Decreased breath sounds. CARDIOVASCULAR: 1st and 2nd sounds normal. No edema. ABDOMEN: Soft. The ileostomy bag in place. Two MASTER drains are present. Liver and spleen not palpable. PSYCHIATRY: Alert and oriented x3. Mood and affect normal. INVESTIGATIONS: White count 13.5, hemoglobin 10.1, platelets 584. Potassium 3.1 BUN and creatinine is normal. ASSESSMENT: 1. Recurrent intraabdominal abscess in a patient with known history of recent ischemic bowel following coronary bypass with previous cultures positive E coli and group B Enterococcus faecalis. The patient had a new MASTER drain placed in the new pocket today on 03/05/2018. 20 mL of pus was removed. Coronary artery disease with coronary bypass in November of this year. 2. Acute ischemic bowel with perforation with right transverse colectomy and ileostomy from November of this year. 3. Paroxysmal atrial fibrillation, currently in sinus rhythm on Eliquis. 4. Peripheral artery disease. 5. Hypothyroidism. 6. Diabetes mellitus type 2, on oral hypoglycemics. 7. Chronic low back pain from arthritis. 8. Depression, not otherwise specified. 9. Hyperlipidemia. 10.Moderate protein-calorie malnutrition from decreased oral intake. 11.Essential hypertension. 12.Hypothyroid. 13.Reactive thrombocytosis. 14.Hyponatremia, likely hypoosmolar on presentation. 15.Normocytic anemia both from chronic intraabdominal infection and from repeated hospital acquired from blood draws. PLAN: Care was discussed with the patient. Continue with IV antibiotics. The patient is otherwise stable. MMODL / IJN: [id number] /
[2018-03-05] MEDS: ATORVASTATIN 40 MG TAB PO SCH (21:40)
[2018-03-05] MEDS: LATANOPROST 0.005% OPHTH DROPS 2.5 ML BTL RIGHT EYE SCH (21:43)
--- NOTE | 2018-03-05 23:06 | P.PN ---
Subjective Progress Note Date: 03/05/18 This is a 72-year-old female patient known to ID service as she was seen on her previous admission which time she was admitted for CAD and underwent an urgent CABG 4 vessel on December 11. She subsequently developed ischemic colitisand underwent exploratory laparotomy with evidence of necrosis the transverse colon and of the right colon and consequently colectomy was performed in ileostomy was placed. she had a very slow recovery and was eventually discharged to [facility]. patient was discharged on fluconazole,Flagyl and Rocephin over she developed further abscess and during her more recent stay required percutaneous drainage of the significant abscesses. The patient has been receiving ongoing intravenous antibiotic therapy,Was being ready for discharge from the extended care facility. However she was having some difficulties and blood work was being performed there is evidence of elevating white blood cell count. Because of this she was directed to hospital. Computed tomography scan has been performed and there is evidence of increasing amount of abdominal abscess near the stomach and consequently percutaneous drainages been requested from the surgeon. The patient relates that partially she is not feeling poorly this point in time. She is not having much pain. Strength was improving but she certainly has been having significant fatigue and malaise this with her long course of recovery. She does not believe that she's had fevers and no chills or rigors of occurred. Her appetite is poor but she has been doing relatively well eating and maintaining her weight. 03/05/2018 patient is now status post a percutaneous drainage of the intra- abdominal abscess via radiology. She's feeling somewhat better. She denying new fevers or chills pain is under good control. She is somewhat discouraged because of the ongoing troubles Objective - Vital Signs Vital signs: Vital Signs Temp 97.8 F 03/05/18 21:00 Pulse 67 03/05/18 21:00 Resp 16 03/05/18 21:00 BP 108/57 03/05/18 21:00 Pulse Ox 96 03/05/18 21:00 Intake & Output 03/05/18 03/05/18 03/06/18 06:59 18:59 06:59 Output Total 60 Balance -60 Output: Drainage 60 Left Abdomen 60 Right Abdomen 0 Other: Voiding Method Diaper Diaper # Voids 3 2 - Exam Pleasant 72-year-old woman who is not in acute distress at this time. HEENT: Anicteric conjunctiva are pink and moist nasal mucosa grossly intact without significant lesions, there is no thrush. Neck: The neck is supple without significant lymphadenopathy or thyromegaly. Lungs: They're symmetrical air entry with few basilar crackles no bronchial sounds are heard in all dullness or egophony Heart: Regular rate and rhythm with an audible S1-S2, no S3 no S4. There is no significant murmur click or rub, PMI was nondisplaced. Abdomen: Positive bowel sounds soft is evidence of some mild tenderness in the left upper quadrant but no palpable masses or organomegaly. There was no guarding or rebound. Extremities: The upper extremities have excellent pulses they are symmetric, no significant petechiae or telangiectasia. No splinter hemorrhages were noted. The lower extremities are free from significant edema. The peripheral pulses were 2+ and symmetric. Neuro: Awake alert oriented to person place and time. There are no acute new gross focal sensory motor deficits. - Labs CBC & Chem 7: 03/05/18 07:32 03/05/18 07:32 Labs: Abnormal Lab Results - Last 24 Hours (Table) 03/05/18 03/05/18 03/05/18 Range/Units 06:57 07:32 07:32 WBC 13.5 H (3.8-10.6) k/uL Hgb 10.1 L (11.4-16.0) gm/dL Hct 30.9 L (34.0-46.0) % MCV 79.9 L (80.0-100.0) fL RDW 17.1 H (11.5-15.5) % Plt Count 584 H (150-450) k/uL Neutrophils # 10.4 H (1.3-7.7) k/uL Sodium 136 L (137-145) mmol/L Potassium 3.1 L (3.5-5.1) mmol/L Creatinine 0.47 L (0.52-1.04) mg/dL Glucose 109 H (74-99) mg/dL POC Glucose (mg/dL) 133 H (75-99) mg/dL 03/05/18 03/05/18 03/05/18 Range/Units 11:30 17:44 20:15 WBC (3.8-10.6) k/uL Hgb (11.4-16.0) gm/dL Hct (34.0-46.0) % MCV (80.0-100.0) fL RDW (11.5-15.5) % Plt Count (150-450) k/uL Neutrophils # (1.3-7.7) k/uL Sodium (137-145) mmol/L Potassium (3.5-5.1) mmol/L Creatinine (0.52-1.04) mg/dL Glucose (74-99) mg/dL POC Glucose (mg/dL) 176 H 124 H 183 H (75-99) mg/dL Microbiology - Last 24 Hours (Table) 03/05/18 12:50 Anaerobic Culture - Preliminary Aspirate 03/04/18 12:50 Body Fluid Culture - Preliminary Aspirate 03/02/18 18:15 Blood Culture Gram Stain - Final Blood Blood Culture - Final Coagulase Negative Staph 03/02/18 22:20 Blood Culture - Preliminary Blood No Growth after 48 hours Laboratory Results WBC 13.5 k/uL (3.8-10.6) H 03/05/18 07:32 RBC 3.87 m/uL (3.80-5.40) 03/05/18 07:32 Hgb 10.1 gm/dL (11.4-16.0) L 03/05/18 07:32 Hct 30.9 % (34.0-46.0) L 03/05/18 07:32 MCV 79.9 fL (80.0-100.0) L 03/05/18 07:32 MCH 26.0 pg (25.0-35.0) 03/05/18 07:32 MCHC 32.5 g/dL (31.0-37.0) 03/05/18 07:32 RDW 17.1 % (11.5-15.5) H 03/05/18 07:32 Plt Count 584 k/uL (150-450) H 03/05/18 07:32 Neutrophils % 77 % 03/05/18 07:32 Lymphocytes % 11 % 03/05/18 07:32 Monocytes % 6 % 03/05/18 07:32 Eosinophils % 5 % 03/05/18 07:32 Basophils % 1 % 03/05/18 07:32 Neutrophils # 10.4 k/uL (1.3-7.7) H 03/05/18 07:32 Lymphocytes # 1.4 k/uL (1.0-4.8) 03/05/18 07:32 Monocytes # 0.8 k/uL (0-1.0) 03/05/18 07:32 Eosinophils # 0.7 k/uL (0-0.7) 03/05/18 07:32 Basophils # 0.1 k/uL (0-0.2) 03/05/18 07:32 Poikilocytosis Slight 03/02/18 18:15 Anisocytosis Slight 03/05/18 07:32 Microcytosis Slight 03/05/18 07:32 PT 10.3 sec (9.0-12.0) 03/02/18 18:15 INR 1.1 (<1.2) 03/02/18 18:15 APTT 23.9 sec (22.0-30.0) 03/02/18 18:15 Sodium 136 mmol/L (137-145) L 03/05/18 07:32 Potassium 3.1 mmol/L (3.5-5.1) L 03/05/18 07:32 Chloride 101 mmol/L (98-107) 03/05/18 07:32 Carbon Dioxide 26 mmol/L (22-30) 03/05/18 07:32 Anion Gap 9 mmol/L 03/05/18 07:32 BUN 7 mg/dL (7-17) 03/05/18 07:32 Creatinine 0.47 mg/dL (0.52-1.04) L 03/05/18 07:32 Est GFR (CKD-EPI)AfAm >90 (>60 ml/min/1.73 sqM) 03/05/18 07:32 Est GFR (CKD-EPI)NonAf >90 (>60 ml/min/1.73 sqM) 03/05/18 07:32 Glucose 109 mg/dL (74-99) H 03/05/18 07:32 POC Glucose (mg/dL) 183 mg/dL (75-99) H 03/05/18 20:15 POC Glu Route Sales Specialist ID 03/05/18 20:15 Lactic Ac Sepsis Rflx Y 03/02/18 18:52 Plasma Lactic Acid [place] 2.0 mmol/L (0.7-2.0) 03/02/18 22:10 Calcium 9.4 mg/dL (8.4-10.2) 03/05/18 07:32 Total Bilirubin 0.4 mg/dL (0.2-1.3) 03/03/18 06:53 AST 39 U/L (14-36) H 03/03/18 06:53 ALT 51 U/L (9-52) 03/03/18 06:53 Alkaline Phosphatase 331 U/L (38-126) H 03/03/18 06:53 Total Protein 5.9 g/dL (6.3-8.2) L 03/03/18 06:53 Albumin 3.0 g/dL (3.5-5.0) L 03/03/18 06:53 TSH 3.060 mIU/L (0.465-4.680) 03/03/18 06:53 Urine Color Light Yellow 03/02/18 20:36 Urine Appearance Turbid (Clear) H 03/02/18 20:36 Urine pH 6.0 (5.0-8.0) 03/02/18 20:36 Ur Specific [place] 1.017 (1.001-1.035) 03/02/18 20:36 Urine Protein Trace (Negative) H 03/02/18 20:36 Urine Glucose (UA) Negative (Negative) 03/02/18 20:36 Urine Ketones Negative (Negative) 03/02/18 20:36 Urine Blood Small (Negative) H 03/02/18 20:36 Urine Nitrite Negative (Negative) 03/02/18 20:36 Urine Bilirubin Negative (Negative) 03/02/18 20:36 Urine Urobilinogen <2.0 mg/dL (<2.0) 03/02/18 20:36 Ur Leukocyte Esterase Large (Negative) H 03/02/18 20:36 Urine WBC >182 /hpf (0-5) H 03/02/18 20:36 Urine WBC Clumps Many /hpf (None) H 03/02/18 20:36 Vancomycin Trough 19.5 ug/mL 03/05/18 00:58 Microbiology 03/05/18 12:50 Aspirate Anaerobic Culture - Preliminary 03/04/18 12:50 Aspirate Body Fluid Culture - Preliminary 03/02/18 18:15 Blood Blood Culture Gram Stain - Final 03/02/18 18:15 Blood Blood Culture - Final Coagulase Negative Staph 03/02/18 22:20 Blood Blood Culture - Preliminary No Growth after 48 hours 03/02/18 20:36 Urine,Catheterized Urine Culture - Final 03/02/18 18:15 Blood Blood Culture - Final Assessment and Plan (1) Intra-abdominal abscess Narrative/Plan: 72-year-old woman who has a very significant recent past medical history regarding her underlying coronary artery disease. Underwent a coronary artery bypass grafting procedure and has difficulty in complications. Since that time she had a significant interabdominal infection which is required several interventions. She was started have some improvement getting near the completion of course of antibiotic therapy for her most recent abscess there is evidence of some increasing leukocytosis. She was brought to hospital with evidence of the increasing white blood cell count in computed tomography scan was performed showing evidence of increased abscess near the stomach. She was seen by her general surgeon there are plans for percutaneous drainage to the site to further drain this area. Based on prior cultures is evidence of an E. coli ESBL as well as of an enterococcal species. Antibiotic therapy this point in time will be with ertapenem and vancomycin pending further culture results. 03/05/2018 patient is status post percutaneous drainage of the second abscess in the upper quadrant area. She's feeling better since the drainage has occurred. 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 coli ESBL enterococcus also. Continue ertapenem and vancomycin for now. Continue supportive care nutrition as per surgery. No surgical plan at this time. Current Visit: Yes Status: Acute Code(s): K65.1 - PERITONEAL ABSCESS SNOMED Code(s): 40688857 (2) Leukocytosis Current Visit: Yes Status: Acute Code(s): D72.829 - ELEVATED WHITE BLOOD CELL COUNT, UNSPECIFIED SNOMED Code(s): 890924875
[2018-03-06] MEDS: VANCOMYCIN 1,250 MG in SODIUM CHLORIDE 0.9% 250 ML IVPB SCH ×2 (03:05→13:33)
[2018-03-06] MEDS: SODIUM CHLORIDE 0.9% 1,000 ML IV SCH (04:12)
[2018-03-06] MEDS: POTASSIUM CHLORIDE ER 10 MEQ TAB.ER.PRT PO SCH (06:22)
[2018-03-06] MEDS: FUROSEMIDE 40 MG TAB PO SCH ×2 (06:22→13:34)
[2018-03-06] MEDS: LEVOTHYROXINE 75 MCG TAB PO SCH (06:22)
[2018-03-06 07:07] LABS: Glucose,Whole Blood 125 mg/dL (75-99)
[2018-03-06] MEDS: INSULIN ASPART 100 UNIT/ML 1 ML 10 ML VIAL SQ SCH ×4 (07:24→20:52)
[2018-03-06] MEDS: ONDANSETRON 4 MG/2 ML VIAL IVP PRN (09:03)
[2018-03-06] MEDS: PIPERACILLIN-TAZOBACTAM 3.375 GM in SODIUM CHLORIDE 0.9% 100 ML IVPB SCH ×3 (09:34→23:57)
[2018-03-06] MEDS: AMIODARONE 100 MG TAB PO SCH (09:36)
[2018-03-06] MEDS: APIXABAN 5 MG TAB PO SCH ×2 (09:36→16:53)
[2018-03-06] MEDS: DULoxetine HCL 60 MG CAPSULE.DR PO SCH (09:37)
[2018-03-06] MEDS: METOPROLOL TARTRATE 25 MG TAB PO SCH ×2 (09:37→19:46)
[2018-03-06] MEDS: LOSARTAN 25 MG TAB PO SCH (09:37)
[2018-03-06 11:04] LABS: Glucose,Whole Blood 306 mg/dL (75-99)
--- NOTE | 2018-03-06 13:28 | P.PN ---
Subjective Progress Note Date: 03/06/18 72-year-old female sitting up in bed appearing in no acute distress taking a diet status post CT-guided abscess drainage per interventional radiology for abdominal abscess placed on left upper quadrant serous drainage noted in the bag. Drain in the right flank area in place no drainage Objective - Vital Signs Vital signs: Vital Signs Temp 98.2 F 03/06/18 05:00 Pulse 67 03/06/18 05:00 Resp 16 03/06/18 05:00 BP 146/65 03/06/18 05:00 Pulse Ox 95 03/06/18 05:00 Intake & Output 03/05/18 03/06/18 03/06/18 18:59 06:59 18:59 Intake Total 3120 Output Total 60 430 Balance -60 2690 Weight 68.94 kg Intake: Intake, IV Titration 1100 Amount Ertapenem 1 gm In Sodium 50 Chloride 0.9% 50 ml @ 100 mls/hr IVPB Q24H [facility] Rx# :[id number] Piperacillin-Tazobactam 3 200 .375 gm In Sodium Chloride 0.9% 100 ml @ 25 mls/hr IVPB Q8H [facility] Rx#: [id number] Sodium Chloride 0.9% 1, 600 000 ml @ 50 mls/hr IV . Q20H [facility] Rx#:[id number] Vancomycin 1,250 mg In 250 Sodium Chloride 0.9% 250 ml @ 125 mls/hr IVPB Q12H [facility] Rx#:[id number] Oral 2020 Output: Drainage 60 30 Left Abdomen 60 30 Right Abdomen 0 0 Stool 400 Other: Voiding Method Diaper Diaper Diaper # Voids 2 2 - Exam Physical exam 72-year-old female sitting up in bed taking a diet appears in no acute distress Lungs adequate air movement bilaterally no shortness of breath Heart S1-S2 audible regular Abdomen soft nontender percutaneous drain in the left upper quadrant in place serous drainage in the bag right flank area percutaneous drain in place no drainage noted in the bag reports no nausea vomiting Extremities no edema - Labs CBC & Chem 7: 03/05/18 07:32 03/05/18 07:32 Labs: Abnormal Lab Results - Last 24 Hours (Table) 03/05/18 03/05/18 03/06/18 Range/Units 17:44 20:15 07:05 POC Glucose (mg/dL) 124 H 183 H 125 H (75-99) mg/dL 03/06/18 Range/Units 11:03 POC Glucose (mg/dL) 306 H (75-99) mg/dL Microbiology - Last 24 Hours (Table) 03/04/18 12:50 Gram Stain - Preliminary Aspirate Body Fluid Culture - Preliminary Gram Neg Bacilli 03/05/18 12:50 Anaerobic Culture - Preliminary Aspirate 03/02/18 22:20 Blood Culture - Preliminary Blood No Growth after 72 hours 03/02/18 18:15 Blood Culture Gram Stain - Final Blood Blood Culture - Final Coagulase Negative Staph Assessment and Plan Assessment: Impression Status post March 05 CT-guided abscess drainage with the percutaneous drain in the left upper quadrant placed for the intra-abdominal abscess History of underlying coronary artery disease with recent coronary artery bypass grafting November 2017 Significant intra-abdominal infection requiring several interventions Persistent leukocytosis Interabdominal abscess with a history of recent ischemic bowel with cultures positive for E. 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 Missy Baca nurse practitioner acting as scribe for signing physician.
[2018-03-06] MEDS: ASCORBIC ACID 500 MG TAB PO SCH (16:53)
[2018-03-06] MEDS: CYANOCOBALAMIN 500 MCG TAB PO SCH (16:53)
[2018-03-06] MEDS: ASPIRIN 81 MG PO SCH (16:53)
[2018-03-06] MEDS ORDERED: ERGOCALCIFEROL 50,000 UNIT CAP PO SCH (17:00)
[2018-03-06 17:21] LABS: Glucose,Whole Blood 116 mg/dL (75-99)
[2018-03-06] MEDS: ERTAPENEM 1 GM in SODIUM CHLORIDE 0.9% 50 ML IVPB SCH (17:58)
[2018-03-06] MEDS: ATORVASTATIN 40 MG TAB PO SCH (19:46)
[2018-03-06] MEDS: LATANOPROST 0.005% OPHTH DROPS 2.5 ML BTL RIGHT EYE SCH (19:46)
--- NOTE | 2018-03-06 20:03 | PN ---
PROGRESS NOTE DATE OF SERVICE: 03/06/18. PRESENTING COMPLAINT: Intraabdominal abscess. INTERVAL HISTORY: This patient with a coronary bypass in November of this year complicated by ischemic bowel and has had intraabdominal abscess and MASTER drains. Yet again admitted from the [facility] with other intraabdominal abscess. New MASTER drain was placed yesterday. Old one is to be removed. Patient has ileostomy. Slight nausea today, tolerating some diet. Lying in bed, tired-appearing, on IV antibiotics. REVIEW OF SYSTEMS: Done for constitutional, cardiovascular, GI, pulmonary; relevant findings as above. CURRENT MEDICATIONS: Reviewed that include IV vancomycin, IV Zosyn. EXAMINATION: Afebrile, pulse 57, respirations 16, blood pressure 146/65, pulse ox 95% on room air. GENERAL APPEARANCE: Lying in bed, awake. EYES: Pupils equal. Conjunctivae normal. HEENT: External appearance of nose and ears normal. Oral cavity normal. NECK: JVD not raised. Mass not palpable. RESPIRATORY: Effort normal. Lungs decreased breath sounds. CARDIOVASCULAR: First and second sounds, no edema. ABDOMEN: Soft. Minimal tenderness. Ileostomy bag in place. Two MASTER drains are present. Liver and spleen not palpable. PSYCHIATRY: Alert and oriented x3. Mood and affect normal. INVESTIGATIONS: No blood work from today. Accu-Cheks are noted. ASSESSMENT: 1. Recurrent intraabdominal abscess in a patient with known history of ischemic bowel following coronary artery bypass with previous cultures positive for E coli and group B Enterococcus faecalis. The patient has a new MASTER drain that was placed on 03/05/18. Old MASTER drain is present and supposed to be removed. 2. Coronary artery disease with bypass in November of this year. 3. Acute ischemic bowel with perforation right transverse colectomy and ileostomy from November of this year. 4. Paroxysmal atrial fibrillation currently in sinus rhythm on Eliquis. 5. Peripheral artery disease. 6. Hypothyroidism. 7. Diabetes mellitus type 2 on oral hypoglycemic. 8. Chronic low back pain from arthritis. 9. Depression, not otherwise specified. 10.Hyperlipidemia. 11.Moderate protein-calorie malnutrition decreased oral intake. 12.Essential hypertension. 13.Hypothyroid. 14.Reactive thrombocytosis. 15.Hyponatremia, likely hypoosmolar on presentation. 16.Normocytic anemia from chronic intraabdominal infection and from repeated hospital acquired for blood draws. PLAN: Care was discussed with the patient. The patient is tolerating a diet. The patient's fluid cultures growing gram-negative bacilli. At this present time continue with IV vancomycin, IV Zosyn and IV meropenem. Care was discussed with the patient. Follow. GUERLINE / IJN: [id number] /
[2018-03-06 20:11] LABS: Glucose,Whole Blood 193 mg/dL (75-99)
[2018-03-07] MEDS: SODIUM CHLORIDE 0.9% 1,000 ML IV SCH (01:36)
[2018-03-07] MEDS: VANCOMYCIN 1,250 MG in SODIUM CHLORIDE 0.9% 250 ML IVPB SCH ×2 (02:42→14:18)
[2018-03-07 07:02] LABS: Glucose,Whole Blood 115 mg/dL (75-99)
[2018-03-07] MEDS: INSULIN ASPART 100 UNIT/ML 1 ML 10 ML VIAL SQ SCH ×4 (07:27→20:57)
[2018-03-07 08:25] LABS: Anion Gap 7 mmol/L; Blood Urea Nitrogen 7 mg/dL (7-17); Calcium 9.2 mg/dL (8.4-10.2); Carbon Dioxide 29 mmol/L (22-30); Chloride 102 mmol/L (98-107); Glucose 106 mg/dL (74-99); Potassium 2.9 mmol/L (3.5-5.1); Sodium 138 mmol/L (137-145)
[2018-03-07] MEDS: LOSARTAN 25 MG TAB PO SCH (08:46)
[2018-03-07] MEDS: AMIODARONE 100 MG TAB PO SCH (08:46)
[2018-03-07] MEDS: POTASSIUM CHLORIDE ER 10 MEQ TAB.ER.PRT PO SCH (08:46)
[2018-03-07] MEDS: METOPROLOL TARTRATE 25 MG TAB PO SCH ×2 (08:46→20:57)
[2018-03-07] MEDS: DULoxetine HCL 60 MG CAPSULE.DR PO SCH (08:46)
[2018-03-07] MEDS: LEVOTHYROXINE 75 MCG TAB PO SCH (08:47)
[2018-03-07] MEDS: PIPERACILLIN-TAZOBACTAM 3.375 GM in SODIUM CHLORIDE 0.9% 100 ML IVPB SCH ×3 (08:48→23:36)
[2018-03-07] MEDS: APIXABAN 5 MG TAB PO SCH ×2 (08:48→16:34)
[2018-03-07] MEDS: FUROSEMIDE 40 MG TAB PO SCH ×2 (08:48→14:18)
--- NOTE | 2018-03-07 10:18 | P.PN ---
Subjective Progress Note Date: 03/07/18 72-year-old female sitting up in bed appearing in no acute distress taking a diet reports no nausea vomiting states is anxious to go back to the rehab center No fever chills percutaneous drain in place the left upper quadrant bloody drainage noted in the bag draining the right flank area has been removed dressing to site is dry Patients being followed by infectious disease Dr. Mccartney Objective - Vital Signs Vital signs: Vital Signs Temp 98.2 F 03/07/18 05:00 Pulse 72 03/07/18 08:00 Resp 16 03/07/18 08:00 BP 118/58 03/07/18 05:00 Pulse Ox 96 03/07/18 05:00 Intake & Output 03/06/18 03/07/18 03/07/18 18:59 06:59 18:59 Intake Total 440 Output Total 205 200 200 Balance -205 240 -200 Intake: Intake, IV Titration 200 Amount Sodium Chloride 0.9% 1, 200 000 ml @ 50 mls/hr IV . Q20H [facility] Rx#:[id number] Oral 240 Output: Drainage 5 Left Abdomen 5 Right Abdomen 0 Stool 200 200 200 Other: Voiding Method Diaper Diaper Diaper # Voids 3 4 - Exam Physical exam 72-year-old female sitting up in bed talkative taking a diet no nausea vomiting tolerating diet appears in no acute distress Lungs adequate air movement bilaterally no shortness of breath no cough noted Heart S1-S2 audible regular Abdomen soft nontender percutaneous drain in the left upper quadrant in place serous drainage in the bag Extremities no edema - Labs CBC & Chem 7: 03/05/18 07:32 03/07/18 07:35 Labs: Abnormal Lab Results - Last 24 Hours (Table) 03/06/18 03/06/18 03/06/18 Range/Units 11:03 17:20 20:09 Potassium (3.5-5.1) mmol/L Glucose (74-99) mg/dL POC Glucose (mg/dL) 306 H 116 H 193 H (75-99) mg/dL 03/07/18 03/07/18 Range/Units 07:01 07:35 Potassium 2.9 L (3.5-5.1) mmol/L Glucose 106 H (74-99) mg/dL POC Glucose (mg/dL) 115 H (75-99) mg/dL Microbiology - Last 24 Hours (Table) 03/02/18 22:20 Blood Culture - Preliminary Blood No Growth after 96 hours 03/04/18 12:50 Fungal Culture - Preliminary Abdomen 03/04/18 12:50 Gram Stain - Preliminary Aspirate Body Fluid Culture - Preliminary Gram Neg Bacilli Assessment and Plan Assessment: Impression Status post March 05 CT-guided abscess drainage with the percutaneous drain in the left upper quadrant placed for the intra-abdominal abscess History of underlying coronary artery disease with recent coronary artery bypass grafting November 2017 Significant history of intra-abdominal infection requiring several interventions Persistent leukocytosis Interabdominal abscess with a history of recent ischemic bowel with cultures positive for E. 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 12/20/2017 Right colectomy, transverse colectomy, takedown splenic flexure, ileostomy for necrosis of transverse colon, right: Done 12/20/2017 Plan Discuss with interventional radiology to discontinue the percutaneous drain on the right side Continue recommendations by infectious disease antibiotic recommendations Continue supportive nutritional care No surgical intervention at this time We'll follow with you Possible transfer back to the rehab center today okayed with infectious disease and medicine service The above impression and plan of care have been discussed and directed by signing physician. Missy Baca nurse practitioner acting as scribe for signing physician.
--- NOTE | 2018-03-07 10:55 | P.PN ---
Subjective This is a pleasant 72 years old female with past medical history of coronary artery disease, chronic atrial fibrillation, diabetes mellitus, hypertension, hyperlipidemia, hypothyroidism, recent surgery on her: For ischemic bowel status post right colostomy. She was sent to [facility] for rehab. Patient was complaining of from abdominal pain and trending up leukocytosis here so she was sent to the hospital. CAT scan showing abdominal abscess next to the stomach. Status post drainage by interventional radiologist. Today patient was lying in bed with regular brown stool on her colostomy and drain on her left side with little serosanguineous fluid in the back. Abdominal looks benign with no tenderness or rebound tenderness. No nausea vomiting. Patient is on antibiotics as per ID team are following the patient. Patient denies chest pain. No dyspnea. No cough no phlegm. Patient denies back pain and states she can walk with a walker. Objective - Vital Signs Vital signs: Vital Signs Temp 98.2 F 03/07/18 05:00 Pulse 72 03/07/18 08:00 Resp 16 03/07/18 08:00 BP 118/58 03/07/18 05:00 Pulse Ox 96 03/07/18 05:00 Intake & Output 03/06/18 03/07/18 03/07/18 18:59 06:59 18:59 Intake Total 440 Output Total 205 200 200 Balance -205 240 -200 Intake: Intake, IV Titration 200 Amount Sodium Chloride 0.9% 1, 200 000 ml @ 50 mls/hr IV . Q20H [facility] Rx#:[id number] Oral 240 Output: Drainage 5 Left Abdomen 5 Right Abdomen 0 Stool 200 200 200 Other: Voiding Method Diaper Diaper Diaper # Voids 3 4 - Exam GENERAL: The patient is alert and oriented x3, not in any acute distress. Well developed, well nourished. HEENT: Pupils are round and equally reacting to light. EOMI. No scleral icterus. No conjunctival pallor. Normocephalic, atraumatic. No pharyngeal erythema. No thyromegaly. CARDIOVASCULAR: S1 and S2 present. No murmurs, rubs, or gallops. PULMONARY: Chest is clear to auscultation, no wheezing or crackles. -ABDOMEN: Soft, nontender, nondistended, normoactive bowel sounds. No palpable organomegaly. Right colostomy with brown stool. Left abdominal drain MUSCULOSKELETAL: No joint swelling or deformity. EXTREMITIES: No cyanosis, clubbing, or pedal edema. NEUROLOGICAL: Gross neurological examination did not reveal any focal deficits. SKIN: No rashes. - Labs CBC & Chem 7: 03/05/18 07:32 03/07/18 07:35 Labs: Abnormal Lab Results - Last 24 Hours (Table) 03/06/18 03/06/18 03/06/18 Range/Units 11:03 17:20 20:09 Potassium (3.5-5.1) mmol/L Glucose (74-99) mg/dL POC Glucose (mg/dL) 306 H 116 H 193 H (75-99) mg/dL 03/07/18 03/07/18 Range/Units 07:01 07:35 Potassium 2.9 L (3.5-5.1) mmol/L Glucose 106 H (74-99) mg/dL POC Glucose (mg/dL) 115 H (75-99) mg/dL Microbiology - Last 24 Hours (Table) 03/02/18 22:20 Blood Culture - Preliminary Blood No Growth after 96 hours 03/04/18 12:50 Fungal Culture - Preliminary Abdomen 03/04/18 12:50 Gram Stain - Preliminary Aspirate Body Fluid Culture - Preliminary Gram Neg Bacilli Assessment and Plan Assessment: Recurrent intra-abdominal abscess in a known case of ischemic bowel following right colostomy History of coronary artery disease History of ischemic bowel Paroxysmal/chronic atrial fibrillation, on Eliquis History of peripheral artery disease Hypothyroidism Diabetes mellitus Chronic low back pain Depression, history of Hyperlipidemia Anemia Plan: This is a pleasant 72 years old female who presents with abdominal abscess. Surgical primary team following the patient, no surgery done but she has drained the abscess. ID team are following the patient's and adjusting the antibiotic. Follow-up culture results.Labs and medication were resumed. Continue same treatment. Continue with symptomatic treatment. Resume home medication. Monitor lytes and vitals. DVT and GI prophylaxis. Further recommendationsof the clinical course of the patient DVT prophylaxis: eliquis GI Prophylaxis: Pepcid Patient is going back to rehab upon discharge Prognosis is guarded
[2018-03-07 11:52] LABS: Glucose,Whole Blood 157 mg/dL (75-99)
[2018-03-07] MEDS: POTASSIUM CHLORIDE ER 20 MEQ TAB.ER PO SCH ×2 (12:10→14:16)
[2018-03-07] MEDS: ASCORBIC ACID 500 MG TAB PO SCH (16:34)
[2018-03-07] MEDS: CYANOCOBALAMIN 500 MCG TAB PO SCH (16:34)
[2018-03-07] MEDS: ASPIRIN 81 MG PO SCH (16:34)
[2018-03-07 16:39] LABS: Glucose,Whole Blood 129 mg/dL (75-99)
[2018-03-07] MEDS: ERTAPENEM 1 GM in SODIUM CHLORIDE 0.9% 50 ML IVPB SCH (17:50)
[2018-03-07 20:28] LABS: Glucose,Whole Blood 271 mg/dL (75-99)
[2018-03-07] MEDS ORDERED: POTASSIUM CHLORIDE ER 20 MEQ TAB.ER PO STA (20:30)
[2018-03-07] MEDS: LATANOPROST 0.005% OPHTH DROPS 2.5 ML BTL RIGHT EYE SCH (20:57)
[2018-03-07] MEDS: ATORVASTATIN 40 MG TAB PO SCH (20:57)
[2018-03-07] MEDS ORDERED: FAMOTIDINE 20 MG/2 ML VIAL IV SCH (21:00)
--- NOTE | 2018-03-08 00:06 | P.PN ---
Subjective Progress Note Date: 03/07/18 This is a 72-year-old female patient known to ID service as she was seen on her previous admission which time she was admitted for CAD and underwent an urgent CABG 4 vessel on December 11. She subsequently developed ischemic colitisand underwent exploratory laparotomy with evidence of necrosis the transverse colon and of the right colon and consequently colectomy was performed in ileostomy was placed. she had a very slow recovery and was eventually discharged to [facility]. patient was discharged on fluconazole,Flagyl and Rocephin over she developed further abscess and during her more recent stay required percutaneous drainage of the significant abscesses. The patient has been receiving ongoing intravenous antibiotic therapy,Was being ready for discharge from the extended care facility. However she was having some difficulties and blood work was being performed there is evidence of elevating white blood cell count. Because of this she was directed to hospital. Computed tomography scan has been performed and there is evidence of increasing amount of abdominal abscess near the stomach and consequently percutaneous drainages been requested from the surgeon. The patient relates that partially she is not feeling poorly this point in time. She is not having much pain. Strength was improving but she certainly has been having significant fatigue and malaise this with her long course of recovery. She does not believe that she's had fevers and no chills or rigors of occurred. Her appetite is poor but she has been doing relatively well eating and maintaining her weight. 03/05/2018 patient is now status post a percutaneous drainage of the intra- abdominal abscess via radiology. She's feeling somewhat better. She denying new fevers or chills pain is under good control. She is somewhat discouraged because of the ongoing troubles 03/07/2018 patient is showing further improvement. Abscesses been drainage is evidence of the E. coli ESBL with no other pathogens. Tolerating antibiotic therapy well this time. Plans are in place for her transfer back to the extended care facility. She is anxious to get back to the facility for her birthday tomorrow. Objective - Vital Signs Vital signs: Vital Signs Temp 97.8 F 03/07/18 21:00 Pulse 75 03/07/18 21:00 Resp 16 03/07/18 21:00 BP 132/63 03/07/18 21:00 Pulse Ox 93 L 03/07/18 21:00 Intake & Output 03/07/18 03/07/1818 06:59 18:59 06:59 Intake Total 440 240 200 Output Total 200 610 Balance 240 -370 200 Intake: Intake, IV Titration 200 200 Amount Ertapenem 1 gm In Sodium 50 Chloride 0.9% 50 ml @ 100 mls/hr IVPB Q24H [facility] Rx# :[id number] Sodium Chloride 0.9% 1, 200 150 000 ml @ 50 mls/hr IV . Q20H [facility] Rx#:[id number] Oral 240 240 Output: Drainage 10 Right Abdomen 10 Stool 200 600 Other: Voiding Method Diaper Diaper Diaper # Voids 4 3 - Exam Pleasant 72-year-old woman who is not in acute distress at this time. HEENT: Anicteric conjunctiva are pink and moist nasal mucosa grossly intact without significant lesions, there is no thrush. Neck: The neck is supple without significant lymphadenopathy or thyromegaly. Lungs: They're symmetrical air entry with few basilar crackles no bronchial sounds are heard in all dullness or egophony Heart: Regular rate and rhythm with an audible S1-S2, no S3 no S4. There is no significant murmur click or rub, PMI was nondisplaced. Abdomen: Positive bowel sounds soft is evidence of some mild tenderness in the left upper quadrant but no palpable masses or organomegaly. There was no guarding or rebound. Extremities: The upper extremities have excellent pulses they are symmetric, no significant petechiae or telangiectasia. No splinter hemorrhages were noted. The lower extremities are free from significant edema. The peripheral pulses were 2+ and symmetric. Neuro: Awake alert oriented to person place and time. There are no acute new gross focal sensory motor deficits. - Labs CBC & Chem 7: 03/05/18 07:32 03/07/18 07:35 Labs: Abnormal Lab Results - Last 24 Hours (Table) 03/07/18 03/07/18 03/07/18 Range/Units 07:01 07:35 11:52 Potassium 2.9 L (3.5-5.1) mmol/L Glucose 106 H (74-99) mg/dL POC Glucose (mg/dL) 115 H 157 H (75-99) mg/dL 03/07/18 03/07/18 Range/Units 16:38 20:27 Potassium (3.5-5.1) mmol/L Glucose (74-99) mg/dL POC Glucose (mg/dL) 129 H 271 H (75-99) mg/dL Microbiology - Last 24 Hours (Table) 03/05/18 12:50 Anaerobic Culture - Preliminary Aspirate 03/04/18 12:50 Gram Stain - Final Aspirate Body Fluid Culture - Final Escherichia coli 03/02/18 22:20 Blood Culture - Preliminary Blood No Growth after 96 hours Laboratory Results WBC 13.5 k/uL (3.8-10.6) H 03/05/18 07:32 RBC 3.87 m/uL (3.80-5.40) 03/05/18 07:32 Hgb 10.1 gm/dL (11.4-16.0) L 03/05/18 07:32 Hct 30.9 % (34.0-46.0) L 03/05/18 07:32 MCV 79.9 fL (80.0-100.0) L 03/05/18 07:32 MCH 26.0 pg (25.0-35.0) 03/05/18 07:32 MCHC 32.5 g/dL (31.0-37.0) 03/05/18 07:32 RDW 17.1 % (11.5-15.5) H 03/05/18 07:32 Plt Count 584 k/uL (150-450) H 03/05/18 07:32 Neutrophils % 77 % 03/05/18 07:32 Lymphocytes % 11 % 03/05/18 07:32 Monocytes % 6 % 03/05/18 07:32 Eosinophils % 5 % 03/05/18 07:32 Basophils % 1 % 03/05/18 07:32 Neutrophils # 10.4 k/uL (1.3-7.7) H 03/05/18 07:32 Lymphocytes # 1.4 k/uL (1.0-4.8) 03/05/18 07:32 Monocytes # 0.8 k/uL (0-1.0) 03/05/18 07:32 Eosinophils # 0.7 k/uL (0-0.7) 03/05/18 07:32 Basophils # 0.1 k/uL (0-0.2) 03/05/18 07:32 Poikilocytosis Slight 03/02/18 18:15 Anisocytosis Slight 03/05/18 07:32 Microcytosis Slight 03/05/18 07:32 PT 10.3 sec (9.0-12.0) 03/02/18 18:15 INR 1.1 (<1.2) 03/02/18 18:15 APTT 23.9 sec (22.0-30.0) 03/02/18 18:15 Sodium 138 mmol/L (137-145) 03/07/18 07:35 Potassium 2.9 mmol/L (3.5-5.1) L 03/07/18 07:35 Chloride 102 mmol/L (98-107) 03/07/18 07:35 Carbon Dioxide 29 mmol/L (22-30) 03/07/18 07:35 Anion Gap 7 mmol/L 03/07/18 07:35 BUN 7 mg/dL (7-17) 03/07/18 07:35 Creatinine 0.57 mg/dL (0.52-1.04) 03/07/18 07:35 Est GFR (CKD-EPI)AfAm >90 (>60 ml/min/1.73 sqM) 03/07/18 07:35 Est GFR (CKD-EPI)NonAf >90 (>60 ml/min/1.73 sqM) 03/07/18 07:35 Glucose 106 mg/dL (74-99) H 03/07/18 07:35 POC Glucose (mg/dL) 271 mg/dL (75-99) H 03/07/18 20:27 POC Glu Gimp Tacker ID Katia Severino 03/07/18 20:27 Lactic Ac Sepsis Rflx Y 03/02/18 18:52 Plasma Lactic Acid [place] 2.0 mmol/L (0.7-2.0) 03/02/18 22:10 Calcium 9.2 mg/dL (8.4-10.2) 03/07/18 07:35 Total Bilirubin 0.4 mg/dL (0.2-1.3) 03/03/18 06:53 AST 39 U/L (14-36) H 03/03/18 06:53 ALT 51 U/L (9-52) 03/03/18 06:53 Alkaline Phosphatase 331 U/L (38-126) H 03/03/18 06:53 Total Protein 5.9 g/dL (6.3-8.2) L 03/03/18 06:53 Albumin 3.0 g/dL (3.5-5.0) L 03/03/18 06:53 TSH 3.060 mIU/L (0.465-4.680) 03/03/18 06:53 Urine Color Light Yellow 03/02/18 20:36 Urine Appearance Turbid (Clear) H 03/02/18 20:36 Urine pH 6.0 (5.0-8.0) 03/02/18 20:36 Ur Specific [place] 1.017 (1.001-1.035) 03/02/18 20:36 Urine Protein Trace (Negative) H 03/02/18 20:36 Urine Glucose (UA) Negative (Negative) 03/02/18 20:36 Urine Ketones Negative (Negative) 03/02/18 20:36 Urine Blood Small (Negative) H 03/02/18 20:36 Urine Nitrite Negative (Negative) 03/02/18 20:36 Urine Bilirubin Negative (Negative) 03/02/18 20:36 Urine Urobilinogen <2.0 mg/dL (<2.0) 03/02/18 20:36 Ur Leukocyte Esterase Large (Negative) H 03/02/18 20:36 Urine WBC >182 /hpf (0-5) H 03/02/18 20:36 Urine WBC Clumps Many /hpf (None) H 03/02/18 20:36 Vancomycin Trough 19.5 ug/mL 03/05/18 00:58 Microbiology 03/05/18 12:50 Aspirate Anaerobic Culture - Preliminary 03/04/18 12:50 Aspirate Gram Stain - Final 03/04/18 12:50 Aspirate Body Fluid Culture - Final Escherichia coli 03/02/18 22:20 Blood Blood Culture - Preliminary No Growth after 96 hours 03/04/18 12:50 Abdomen Fungal Culture - Preliminary 03/02/18 18:15 Blood Blood Culture Gram Stain - Final 03/02/18 18:15 Blood Blood Culture - Final Coagulase Negative Staph 03/02/18 20:36 Urine,Catheterized Urine Culture - Final 03/02/18 18:15 Blood Blood Culture - Final Assessment and Plan (1) Intra-abdominal abscess Narrative/Plan: 72-year-old woman who has a very significant recent past medical history regarding her underlying coronary artery disease. Underwent a coronary artery bypass grafting procedure and has difficulty in complications. Since that time she had a significant interabdominal infection which is required several interventions. She was started have some improvement getting near the completion of course of antibiotic therapy for her most recent abscess there is evidence of some increasing leukocytosis. She was brought to hospital with evidence of the increasing white blood cell count in computed tomography scan was performed showing evidence of increased abscess near the stomach. She was seen by her general surgeon there are plans for percutaneous drainage to the site to further drain this area. Based on prior cultures is evidence of an E. coli ESBL as well as of an enterococcal species. Antibiotic therapy this point in time will be with ertapenem and vancomycin pending further culture results. 03/05/2018 patient is status post percutaneous drainage of the second abscess in the upper quadrant area. She's feeling better since the drainage has occurred. 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 coli ESBL enterococcus also. Continue ertapenem and vancomycin for now. Continue supportive care nutrition as per surgery. No surgical plan at this time. 03/07/2018 patient is improved. Culture shows evidence of the ESBL E. coli and constantly Invanz as sole therapy can be utilized at this time for this last abscesses been drained. Will need outpatient follow-up and outpatient computed tomography scan to ensure that she has good resolution of this particular abscess. Follow up with surgeon as outpatient setting is also planned. Follow- up blood work also requested. She will to transfer back to the extended care facility tomorrow. Current Visit: Yes Status: Acute Code(s): K65.1 - PERITONEAL ABSCESS SNOMED Code(s): 36270324 (2) Leukocytosis Current Visit: Yes Status: Acute Code(s): D72.829 - ELEVATED WHITE BLOOD CELL COUNT, UNSPECIFIED SNOMED Code(s): 918162142
[2018-03-08] MEDS: VANCOMYCIN 1,250 MG in SODIUM CHLORIDE 0.9% 250 ML IVPB SCH ×2 (03:05→15:01)
[2018-03-08] MEDS: SODIUM CHLORIDE 0.9% 1,000 ML IV SCH (05:30)
[2018-03-08] MEDS: LEVOTHYROXINE 75 MCG TAB PO SCH (06:19)
[2018-03-08] MEDS: FUROSEMIDE 40 MG TAB PO SCH ×2 (06:19→15:01)
[2018-03-08] MEDS: PIPERACILLIN-TAZOBACTAM 3.375 GM in SODIUM CHLORIDE 0.9% 100 ML IVPB SCH ×2 (06:19→15:02)
[2018-03-08 07:01] LABS: Glucose,Whole Blood 103 mg/dL (75-99)
[2018-03-08 07:45] LABS: Anisocytosis Slight; Basophils # (A) 0.1 k/uL (0-0.2); Basophils % (A) 1 %; Eosinophils # (A) 0.9 k/uL (0-0.7); Eosinophils % (A) 7 %; HGB 9.6 gm/dL (11.4-16.0); Hypochromasia Slight; Lymphocytes # (A) 1.7 k/uL (1.0-4.8); Lymphocytes % (A) 13 %; MCH 26.1 pg (25.0-35.0); MCHC 32.1 g/dL (31.0-37.0); MCV 81.3 fL (80.0-100.0); Mean Platelet Volume 6.5; Microcytosis Slight; Monocytes # (A) 0.7 k/uL (0-1.0); Monocytes % (A) 5 %; Neutrophils # (A) 9.1 k/uL (1.3-7.7); Neutrophils % (A) 72 %; Platelet Count 583 k/uL (150-450); RBC 3.69 m/uL (3.80-5.40); RDW 16.8 % (11.5-15.5); WBC 12.7 k/uL (3.8-10.6)
[2018-03-08 07:54] LABS: Anion Gap 7 mmol/L; Blood Urea Nitrogen 7 mg/dL (7-17); Calcium 9.4 mg/dL (8.4-10.2); Carbon Dioxide 27 mmol/L (22-30); Chloride 103 mmol/L (98-107); Glucose 95 mg/dL (74-99); Potassium 3.9 mmol/L (3.5-5.1); Sodium 137 mmol/L (137-145)
[2018-03-08] MEDS: INSULIN ASPART 100 UNIT/ML 1 ML 10 ML VIAL SQ SCH ×2 (08:26→12:21)
[2018-03-08] MEDS: AMIODARONE 100 MG TAB PO SCH (08:32)
[2018-03-08] MEDS: APIXABAN 5 MG TAB PO SCH (08:32)
[2018-03-08] MEDS: DULoxetine HCL 60 MG CAPSULE.DR PO SCH (08:32)
[2018-03-08] MEDS: METOPROLOL TARTRATE 25 MG TAB PO SCH (08:33)
[2018-03-08] MEDS: LOSARTAN 25 MG TAB PO SCH (08:33)
[2018-03-08] MEDS: POTASSIUM CHLORIDE ER 10 MEQ TAB.ER.PRT PO SCH (08:39)
[2018-03-08] MEDS ORDERED: FAMOTIDINE 20 MG TAB PO SCH (09:00)
[2018-03-08 11:16] LABS: Glucose,Whole Blood 168 mg/dL (75-99)
--- NOTE | 2018-03-08 11:35 | P.DS ---
Providers Date of admission: 03/02/18 21:49 Expected date of discharge: 03/08/18 Attending physician: Christopher Montoya Consults: 03/02/18 21:15 Consult Physician Routine Consulting Provider: Parveen Dietz Consult Reason/Comments: Intra-abdominal Abscess; Sepsis Do you want consulting provider notified?: Yes 03/02/18 21:28 Consult Physician Routine Consulting Provider: Joshua Mccartney Consult Reason/Comments: sepsis, IAA Do you want consulting provider notified?: Yes Primary care physician: [facility] Course: 73-year-old female who was transferred from the [facility] facility [facility] after patient was noted to have an increased white blood cell count 17.3 Patient was transferred to the hospital for further evaluation. Patient has a drain in the right side from a prior abscess with no drainage noted in the past several weeks. CAT scan was obtained upon arrival it did show a slight increase in fluid collection in the left upper quadrant. There was a decrease in the size of fluid collection in the lateral right abdomen compared to prior exam. There was increased fluid collection adjacent to the stomach consistent with an abscess measured 3 x [address] exam currently increased to 5 x 5 x 3 cm Patient was admitted for a possible abscess. Patient had been receiving ongoing IV antibiotic therapy at the [facility]. On March [address]-guided drainage of the abscess with a drain placed in the left upper quadrant. 20 mL appearing material was obtained . Material was sent for culture infectious disease following patient Antibiotics were directed by infectious disease. The fluid cultures from the abscess showed E. coli ESBL urine culture no growth blood culture no growth Patient denied any fever chills. Tolerating the antibiotic therapy. The plan was to transfer the patient back to the [facility] facility for rehab Infectious disease recommended Invanz 1 g every 24 hours for 28 days Patient does have a history of prior coronary artery disease and underwent an urgent coronary artery bypass grafting 4 vessels in December 11 2017. Subsequently the patient developed an ischemic bowel and underwent exploratory laparotomy with evidence of necrosis at the transverse colon in the right colon resulting in a colectomy with an ileostomy done on 12/20/2017 due to being significantly deconditioned significant fatigue after her long course of recovery. Patient was transferred to the [facility] subacute rehab for rehabilitation on the day of discharge CONSULTING physicians felt patient was appropriate to be discharged. The drain on the right side was removed this admission. Patient had a drain on the left straining serous drainage ostomy functioning moderate amount of stool Impression Status post March 05 CT-guided abscess drainage with the percutaneous drain in the left upper quadrant placed for the intra-abdominal abscess History of underlying coronary artery disease with recent coronary artery bypass grafting November 2017 Significant history of intra-abdominal infection requiring several interventions Persistent leukocytosis trending down suspect due to abscess which has increased from prior CAT scan Interabdominal abscess with a history of recent ischemic bowel with cultures positive for E. 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 Missy Baca nurse practitioner acting as scribe for signing physician. Patient Condition at Discharge: Serious Plan - Discharge Summary Discharge Rx Participant: Yes New Discharge Prescriptions: New Ertapenem [INVanz] 1 gm IVPB Q24H #28 bag Acetaminophen Tab [Tylenol] 650 mg PO Q6HR PRN tab PRN Reason: Mild Pain Or Fever > 100.5 oxyCODONE HCL [OxyIR] 20 mg PO TID@0800,1600,0000 #90 tab Continue Levothyroxine Sodium [Synthroid] 75 mcg PO DAILY@0600 Ergocalciferol (Vitamin D2) [Vitamin D2] 50,000 unit PO TU@1700 DULoxetine HCL [Cymbalta] 60 mg PO DAILY@0800 Cyanocobalamin [Vitamin B-12] 500 mcg PO DAILY@1700 Calcium Carbonate [Tums] 500 mg PO QID PRN chew PRN Reason: Heartburn Ipratropium-Albuterol Nebulize [Duoneb 0.5 mg-3 mg/3 ml Soln] 3 ml INHALATION RT-Q2H PRN ampul.neb PRN Reason: Shortness Of Breath Or Wheezing Ascorbic Acid [Vitamin C] 500 mg PO DAILY@1700 Atorvastatin [Lipitor] 40 mg PO HS@2100 Losartan [Cozaar] 25 mg PO DAILY@0800 Ondansetron [Zofran] 4 mg PO Q6H PRN PRN Reason: Nausea And Vomiting Na Phos,M-B/Na Phos,Di-Ba [Fleet Adult] 133 ml RECTAL ONCE PRN PRN Reason: Constipation Magnesium Hydroxide [Milk of Magnesia Concentrate] 7,200 mg PO ONCE PRN PRN Reason: Constipation Bisacodyl [Dulcolax] 10 mg RECTAL DAILY PRN PRN Reason: Constipation Acetaminophen Tab [Tylenol] 325 mg PO Q4H PRN PRN Reason: Pain oxyCODONE HCL 20 mg PO TID@0800,1600,0000 Ensure Clear 237 ml PO TID@0800,1200,1700 Metoprolol Tartrate [Lopressor] 25 mg PO BID@0800,2100 Furosemide [Lasix] 40 mg PO BID@0600,1400 Apixaban [Eliquis] 5 mg PO BID@0800,1700 Potassium Chloride [Klor-Con M15] 30 meq PO DAILY@0600 Magic Cup 1 dose PO DAILY@1400 Latanoprost/Pf [Latanoprost 0.005% Eye Drop] 1 drop RIGHT EYE HS@2100 Aspirin 81 mg PO DAILY@1700 Amiodarone [Cordarone] 100 mg PO DAILY@0800 Discharge Medication List DULoxetine HCL [Cymbalta] 60 mg PO DAILY@0800 12/14/16 [History] Ergocalciferol (Vitamin D2) [Vitamin D2] 50,000 unit PO TU@17012/14/16 [ History] Levothyroxine Sodium [Synthroid] 75 mcg PO DAILY@0612/14/16 [History] Cyanocobalamin [Vitamin B-12] 500 mcg PO DAILY@169912/04/17 [History] Calcium Carbonate [Tums] 500 mg PO QID PRN chew 01/09/18 [Rx] Ipratropium-Albuterol Nebulize [Duoneb 0.5 mg-3 mg/3 ml Soln] 3 ml INHALATION RT -Q2H PRN ampul.neb 01/09/18 [Rx] Ascorbic Acid [Vitamin C] 500 mg PO DAILY@17001/24/18 [History] Atorvastatin [Lipitor] 40 mg PO HS@2100 01/24/18 [History] Losartan [Cozaar] 25 mg PO DAILY@0801/24/18 [History] Acetaminophen Tab [Tylenol] 325 mg PO Q4H PRN 03/02/18 [History] Amiodarone [Cordarone] 100 mg PO DAILY@0800 03/02/18 [History] Apixaban [Eliquis] 5 mg PO BID@0800,1700 03/02/18 [History] Aspirin 81 mg PO DAILY@1700 03/02/18 [History] Bisacodyl [Dulcolax] 10 mg RECTAL DAILY PRN 03/02/18 [History] Ensure Clear 237 ml PO TID@0800,1200,1700 03/02/18 [History] Furosemide [Lasix] 40 mg PO BID@0600,1400 03/02/18 [History] Latanoprost/Pf [Latanoprost 0.005% Eye Drop] 1 drop RIGHT EYE HS@209903/02/18 [ History] Magic Cup 1 dose PO DAILY@1400 03/02/18 [History] Magnesium Hydroxide [Milk of Magnesia Concentrate] 7,200 mg PO ONCE PRN [History] Metoprolol Tartrate [Lopressor] 25 mg PO BID@0800,209903/02/18 [History] Na Phos,M-B/Na Phos,Di-Ba [Fleet Adult] 133 ml RECTAL ONCE PRN 03/02/18 [History ] Ondansetron [Zofran] 4 mg PO Q6H PRN 03/02/18 [History] Potassium Chloride [Klor-Con M15] 30 meq PO DAILY@0600 03/02/18 [History] oxyCODONE HCL 20 mg PO TID@0800,1600,0000 03/02/18 [History] Ertapenem [INVanz] 1 gm IVPB Q24H #28 bag 03/07/18 [Rx] Acetaminophen Tab [Tylenol] 650 mg PO Q6HR PRN tab 03/08/18 [Rx] oxyCODONE HCL [OxyIR] 20 mg PO TID@0800,1600,0000 #90 tab 03/08/18 [Rx] Follow up Appointment(s)/Referral(s): Diaz Alcala DO [Primary Care Provider] - 1-2 days Joshua Mccartney MD [STAFF PHYSICIAN] - 3 Weeks Christopher Montoya MD [STAFF PHYSICIAN] - 1 Week Ambulatory/Diagnostic Orders: Basic Metabolic Panel [LAB.AMB] Location: None Selected Complete Blood Count w/diff [LAB.AMB] Location: None Selected Patient Instructions/Handouts: Ileostomy Care (DC), Ileostomy Care (GEN) Activity/Diet/Wound Care/Special Instructions: Abdominal Drain Care: Right by [facility] radiology inserted: 03.05.2018 Ileostomy Care Last Date of Appliance Change: 03.06.2018 Mrs Sellers will have three pouching system changes from [facility] for transition to [facility] as follows: Convatec flange #[id number] (three) Convatec pouches #[id number] with filter (three) No sting prep pads (10) Ostomy Powder (1) Please continue to change the pouching system every 3-5 days Empty the pouching system when it is 1/2 to 1/3 full Continue to engage the Mrs Sellers and Mr Sellers in ileostomy care to do hands on care as progression occurs Discharge Disposition: TRANSFER TO SNF/ECF
--- NOTE | 2018-03-08 11:47 | P.PN ---
Subjective This is a pleasant 72 years old female with past medical history of coronary artery disease, chronic atrial fibrillation, diabetes mellitus, hypertension, hyperlipidemia, hypothyroidism, recent surgery on her: For ischemic bowel status post right colostomy. She was sent to [facility] for rehab. Patient was complaining of from abdominal pain and trending up leukocytosis here so she was sent to the hospital. CAT scan showing abdominal abscess next to the stomach. Status post drainage by interventional radiologist. Today patient was lying in bed with regular brown stool on her colostomy and drain on her left side with little serosanguineous fluid in the back. Abdominal looks benign with no tenderness or rebound tenderness. No nausea vomiting. Patient is on antibiotics as per ID team are following the patient. Patient denies chest pain. No dyspnea. No cough no phlegm. Patient denies back pain and states she can walk with a walker. 03/08/2018 Patient today still complaining of abdominal pain. She is tolerating diet and no nausea vomiting. Her right colostomy bag is working with rebound and stool in the bag. Her drain on the left side is walking with minimum discharge when I saw her in the morning. Patient denies chest pain or dyspnea. Culture came back positive for E. coli and blood culture is positive for coagulase-negative staph. ID team are following the patient and patient has left arm PICC line. Antibiotics are adjusted as per ID team for now and upon discharge. She's been treated with Invanz, Zosyn and IV Vanco. Infectious disease team recommended outpatient follow-up and outpatient computed tomography scan to ensure that she has good resolution of this particular abscess. I recommended the patient follow up with infectious disease and surgical primary team as instructed. Patient informed about this recommendations. Patient herself is insistent on leaving today because she has been approved for visit her and today is her birthday. Vital signs stable. WBC is 12.7 K and still need to be monitored. Hemoglobin is 9.6 which is stable. CBC and BMP was unremarkable. She was controlled. Objective - Vital Signs Vital signs: Vital Signs Temp 98 F 03/08/18 05:00 Pulse 70 03/08/18 05:00 Resp 18 03/08/18 05:00 BP 133/82 03/08/18 05:00 Pulse Ox 96 03/08/18 05:00 Intake & Output 03/07/18 03/08/18 03/08/18 18:59 06:59 18:59 Intake Total 240 750 Output Total 610 Balance -370 750 Intake: Intake, IV Titration 750 Amount Ertapenem 1 gm In Sodium 50 Chloride 0.9% 50 ml @ 100 mls/hr IVPB Q24H [facility] Rx# :[id number] Piperacillin-Tazobactam 3 100 .375 gm In Sodium Chloride 0.9% 100 ml @ 25 mls/hr IVPB Q8H [facility] Rx#: [id number] Sodium Chloride 0.9% 1, 350 000 ml @ 50 mls/hr IV . Q20H [facility] Rx#:[id number] Vancomycin 1,250 mg In 250 Sodium Chloride 0.9% 250 ml @ 125 mls/hr IVPB Q12H [facility] Rx#:[id number] Oral 240 Output: Drainage 10 Right Abdomen 10 Stool 600 Other: Voiding Method Diaper Diaper Diaper Incontinent # Voids 3 1 - Exam GENERAL: The patient is alert and oriented x3, not in any acute distress. Well developed, well nourished. HEENT: Pupils are round and equally reacting to light. EOMI. No scleral icterus. No conjunctival pallor. Normocephalic, atraumatic. No pharyngeal erythema. No thyromegaly. CARDIOVASCULAR: S1 and S2 present. No murmurs, rubs, or gallops. PULMONARY: Chest is clear to auscultation, no wheezing or crackles. -ABDOMEN: Soft, nontender, nondistended, normoactive bowel sounds. No palpable organomegaly. Right colostomy with brown stool. Left abdominal drain MUSCULOSKELETAL: No joint swelling or deformity. EXTREMITIES: No cyanosis, clubbing, or pedal edema. NEUROLOGICAL: Gross neurological examination did not reveal any focal deficits. SKIN: No rashes. - Labs CBC & Chem 7: 03/08/18 07:07 03/08/18 07:07 Labs: Abnormal Lab Results - Last 24 Hours (Table) 03/07/18 03/07/18 03/07/18 Range/Units 11:52 16:38 20:27 WBC (3.8-10.6) k/uL RBC (3.80-5.40) m/uL Hgb (11.4-16.0) gm/dL Hct (34.0-46.0) % RDW (11.5-15.5) % Plt Count (150-450) k/uL Neutrophils # (1.3-7.7) k/uL Eosinophils # (0-0.7) k/uL Creatinine (0.52-1.04) mg/dL POC Glucose (mg/dL) 157 H 129 H 271 H (75-99) mg/dL 03/08/18 03/08/18 03/08/18 Range/Units 07:00 07:07 07:07 WBC 12.7 H (3.8-10.6) k/uL RBC 3.69 L (3.80-5.40) m/uL Hgb 9.6 L (11.4-16.0) gm/dL Hct 30.0 L (34.0-46.0) % RDW 16.8 H (11.5-15.5) % Plt Count 583 H (150-450) k/uL Neutrophils # 9.1 H (1.3-7.7) k/uL Eosinophils # 0.9 H (0-0.7) k/uL Creatinine 0.51 L (0.52-1.04) mg/dL POC Glucose (mg/dL) 103 H (75-99) mg/dL 03/08/18 Range/Units 11:15 WBC (3.8-10.6) k/uL RBC (3.80-5.40) m/uL Hgb (11.4-16.0) gm/dL Hct (34.0-46.0) % RDW (11.5-15.5) % Plt Count (150-450) k/uL Neutrophils # (1.3-7.7) k/uL Eosinophils # (0-0.7) k/uL Creatinine (0.52-1.04) mg/dL POC Glucose (mg/dL) 168 H (75-99) mg/dL Microbiology - Last 24 Hours (Table) 03/04/18 12:50 Gram Stain - Final Aspirate Body Fluid Culture - Final Escherichia coli 03/02/18 22:20 Blood Culture - Preliminary Blood No Growth after 120 hours 03/05/18 12:50 Anaerobic Culture - Preliminary Aspirate Assessment and Plan Assessment: Recurrent intra-abdominal abscess in a known case of ischemic bowel following right colostomy History of coronary artery disease History of ischemic bowel Paroxysmal/chronic atrial fibrillation, on Eliquis History of peripheral artery disease Hypothyroidism Diabetes mellitus Chronic low back pain Depression, history of Hyperlipidemia Anemia Plan: This is a pleasant 72 years old female who presents with abdominal abscess. Surgical primary team following the patient, no surgery done but she has drained the abscess. ID team are following the patient's and adjusting the antibiotic. Follow-up culture results.Labs and medication were resumed. Continue same treatment. Continue with symptomatic treatment. Resume home medication. Monitor lytes and vitals. DVT and GI prophylaxis. Further recommendationsof the clinical course of the patient DVT prophylaxis: eliquis GI Prophylaxis: Pepcid Patient is going back to rehab upon discharge We recommend close follow-up with infectious and surgical team and patient is instructed about these recommendations Prognosis is guarded Thank you for consulting us, please feel free to contact us for any further question or clarification.
[2018-03-08 11:57] VITALS: BP 139/72; PULSE 64; RESP 16; TEMP 98.4
--- NOTE | 2018-03-13 11:00 | CDI ---
Documentation Clarification Form Date: 03/13/18 From: Rosita Smith Phone: If questions, call Irasema Duarte @ Admit Date: 03/02/2018 9:49:00 PM Patient Name: Carolyn Sellers Visit Number: [id number] Discharge Date:03/08/18 ATTENTION: The Clinical Documentation Specialists (CDI) and [facility] Coding Staff appreciate your assistance in clarifying documentation. Please respond to the clarification below the line at the bottom and electronically sign. The CDI & [facility] Coding staff will review the response and follow-up if needed. Please note: Queries are made part of the Legal Health Record. If you have any questions, please contact the author of this message via ITS. Dr. Crum, Patient admitted for development of left sided intraabdominal abscess. Documentation states patient was admitted for CABG followed by ischemic bowel resulting in colostomy, patient has had difficulties in complications of the CABG procedure, according to PNs. In order to accurately reflect this patients severity of illness, please clarify if the intraabdominal abscess(es) are a complication of : Ileostomy , Coronary artery bypass graft infection, Surgical site infection, Ischemic bowel only without post surgical complication, Other, please specify Unable to determine Defer to Dr. Montoya MTDD
--- NOTE | 2018-03-29 15:53 | CDI ---
Last Revision, March 2017 Documentation Clarification Form Date: 03/29/19 From: Rosita Smith Phone: If questions, call Ship[employer] at [phone] Admit Date: 03/02/2018 9:49:00 PM Patient Name: Carolyn Sellers Visit Number: [id number] Discharge Date: 03/08/18 ATTENTION: The Clinical Documentation Specialists (CDI) and [facility] Coding Staff appreciate your assistance in clarifying documentation. Please respond to the clarification below the line at the bottom and electronically sign. The CDI & [facility] Coding staff will review the response and follow-up if needed. Please note: Queries are made part of the Legal Health Record. If you have any questions, please contact the author of this message via ITS. Adalid Hewitt MD Patient admitted for development of left sided intraabdominal abscess. Documentation states patient was admitted for CABG followed by ischemic bowel resulting in colostomy. Patient has had difficulties with complications of the CABG procedure, according to prog notes. In order to accurately reflect this patients severity of illness, please clarify if the intraabdominal abscess(es) are a complication of : Ileostomy , Coronary artery bypass graft infection, Surgical site infection, Ischemic bowel only without post surgical complication, Other, please specify Unable to determine Defer this question to Dr. Montoya MTDD
--- NOTE | 2018-04-25 10:41 | CDI ---
Documentation Clarification Form Date: 04/25/18 From: Rosita Smith/ Irasema Duarte Admit Date: 03/02/2018 9:49:00 PM Patient Name: Carolyn Sellers Visit Number: [id number] Discharge Date: 03/08/2018 ATTENTION: The Clinical Documentation Specialists (CDI) and [facility] Coding Staff appreciate your assistance in clarifying documentation. Please respond to the clarification below the line at the bottom and electronically sign. The CDI & [facility] Coding staff will review the response and follow-up if needed. Please note: Queries are made part of the Legal Health Record. If you have any questions, please contact the author of this message via ITS. Dr. Christopher Montoya Patient admitted for development of left sided intraabdominal abscess. Documentation states patient was admitted for CABG followed by ischemic bowel resulting in colostomy, patient has had difficulties in complications of the CABG procedure, according to progress notes. In order to accurately reflect this patients severity of illness, please clarify if the intraabdominal abscess(es) are a complication of : Ileostomy , Coronary artery bypass graft infection, Surgical site infection, Ischemic bowel only without post surgical complication, Other, please specify Unable to determine The intra-abdominal abscesses are a complication of the coronary artery bypass graft operation which caused ischemic bowel and bowel necrosis. RAO
== END 2018-03-08 15:50 | DRG 393 ==
LOC: EC 17:37 → 3SCARD 21:49 → 3NMEDONC 23:48
PROVIDERS: ADMIT Surgery; ATTEND Surgery
PROC: 0W9G30Z Drainage of Peritoneal Cavity with Drainage Device, Percutaneous Approach (ICD-10-PCS; principal; 2018-03-05)
DX: K91.89 Other postprocedural complications and disorders of digestive system (principal); K65.1 Peritoneal abscess; E44.0 Moderate protein-calorie malnutrition; E87.1 Hypo-osmolality and hyponatremia; Z95.1 Presence of aortocoronary bypass graft; I25.10 Atherosclerotic heart disease of native coronary artery without angina pectoris; I48.0 Paroxysmal atrial fibrillation; D63.8 Anemia in other chronic diseases classified elsewhere; Z90.49 Acquired absence of other specified parts of digestive tract; Z93.2 Ileostomy status; M19.90 Unspecified osteoarthritis, unspecified site; I10 Essential (primary) hypertension; E78.5 Hyperlipidemia, unspecified; E11.51 Type 2 diabetes mellitus with diabetic peripheral angiopathy without gangrene; Z95.828 Presence of other vascular implants and grafts; Z87.440 Personal history of urinary (tract) infections; G89.29 Other chronic pain; M54.5 Low back pain; Z96.653 Presence of artificial knee joint, bilateral; E03.9 Hypothyroidism, unspecified; F41.9 Anxiety disorder, unspecified; F32.9 Major depressive disorder, single episode, unspecified; Z87.891 Personal history of nicotine dependence; Z80.49 Family history of malignant neoplasm of other genital organs; Z79.899 Other long term (current) drug therapy; Z79.01 Long term (current) use of anticoagulants; Z79.82 Long term (current) use of aspirin; Z79.890 Hormone replacement therapy; Z68.26 Body mass index [BMI] 26.0-26.9, adult; R11.0 Nausea
CPT/HCPCS: 36415; 51701; 71046; 74177; 75989; 77012; 80048; 80053; 80202; 81001; 83605; 84443; 85025; 85610; 85730; 87040; 87070; 87075; 87077; 87086; 87102; 87186; 87205; 96361; 96365; 99285

== ENCOUNTER 2018-04-08 10:42 | Emergency (ER) | payer MEDICARE ==
--- NOTE | 2018-04-08 12:17 | ED ---
General Adult HPI - General Chief complaint: Abdominal Pain Stated complaint: colostomy bag problems Time Seen by Provider: 04/08/18 11:25 Source: patient, RN notes reviewed Mode of arrival: ambulatory Limitations: no limitations - History of Present Illness Initial comments: Patient 73-year-old female presented to the emergency room today with a chief complaint of leaking around her ostomy bag site. Patient states that she was recently discharged from [facility]. She states some issues with leaking at the time when she was there depending who would place it. She states she's been home when she's had a difficult time placing the bag correctly to prevent leakage. She states still leaking around today. Patient denies any other complaints or symptoms. Denies any fever, chills, abdominal pain, back pain, shortness of breath, chest pain. - Related Data Home Medications Medication Instructions Recorded Confirmed DULoxetine HCL [Cymbalta] 60 mg PO DAILY@0800 12/14/16 03/02/18 Ergocalciferol (Vitamin D2) 50,000 unit PO TU@1700 12/14/16 03/02/18 [Vitamin D2] Levothyroxine Sodium [Synthroid] 75 mcg PO DAILY@0600 12/14/16 03/02/18 Cyanocobalamin [Vitamin B-12] 500 mcg PO DAILY@1700 12/04/17 03/02/18 Ascorbic Acid [Vitamin C] 500 mg PO DAILY@1700 01/24/18 03/02/18 Atorvastatin [Lipitor] 40 mg PO HS@2100 01/24/18 03/02/18 Losartan [Cozaar] 25 mg PO DAILY@0800 01/24/18 03/02/18 Acetaminophen Tab [Tylenol] 325 mg PO Q4H PRN 03/02/18 03/02/18 Amiodarone [Cordarone] 100 mg PO DAILY@0800 03/02/18 03/02/18 Apixaban [Eliquis] 5 mg PO BID@0800,1700 03/02/18 03/02/18 Aspirin 81 mg PO DAILY@17003/02/18 03/02/18 Bisacodyl [Dulcolax] 10 mg RECTAL DAILY PRN 03/02/18 03/02/18 Ensure Clear 237 ml PO TID@0800,1200,1700 03/02/18 03/02/18 Furosemide [Lasix] 40 mg PO BID@0600,1400 03/02/18 03/02/18 Latanoprost/Pf [Latanoprost 0.005% 1 drop RIGHT EYE HS@2100 03/02/18 03/02/18 Eye Drop] Magic Cup 1 dose PO DAILY@1400 03/02/18 03/02/18 Magnesium Hydroxide [Milk of 7,200 mg PO ONCE PRN 03/02/18 03/02/18 Magnesia Concentrate] Metoprolol Tartrate [Lopressor] 25 mg PO BID@0800,2100 03/02/18 03/02/18 Na Phos,M-B/Na Phos,Di-Ba [Fleet 133 ml RECTAL ONCE PRN 03/02/18 03/02/18 Adult] Ondansetron [Zofran] 4 mg PO Q6H PRN 03/02/18 03/02/18 Potassium Chloride [Klor-Con M15] 30 meq PO DAILY@0600 03/02/18 03/02/18 oxyCODONE HCL 20 mg PO TID@0800,1600,0000 03/02/18 03/02/18 Previous Rx's Medication Instructions Recorded Calcium Carbonate [Tums] 500 mg PO QID PRN chew 01/09/18 Ipratropium-Albuterol Nebulize 3 ml INHALATION RT-Q2H PRN 01/09/18 [Duoneb 0.5 mg-3 mg/3 ml Soln] ampul.neb Ertapenem [INVanz] 1 gm IVPB Q24H #28 bag 03/07/18 Acetaminophen Tab [Tylenol] 650 mg PO Q6HR PRN tab 03/08/18 oxyCODONE HCL [OxyIR] 20 mg PO TID@0800,1600,0000 #90 tab 03/08/18 Allergies Allergy/AdvReac Type Severity Reaction Status Date / Time No Known Allergies Allergy Verified 04/08/18 11:05 Review of Systems ROS Statement: Those systems with pertinent positive or pertinent negative responses have been documented in the HPI. ROS Other: All systems not noted in ROS Statement are negative. Past Medical History Past Medical History: Atrial Fibrillation, Coronary Artery Disease (CAD), Diabetes Mellitus, Hyperlipidemia, Hypertension, Osteoarthritis (OA), Thyroid Disorder, Vascular Disorder Additional Past Medical History / Comment(s): Pt. states poor circulation in RLE due to an artificial bypass. past fall, Chronic back pain, bilateral shoulder problems djd has difficulty with rom.past uti-ecoli History of Any Multi-Drug Resistant Organisms: ESBL Date of last positivie culture/infection: 03/04/18 MDRO Source:: BODY FLUID ASPIRATE Past Surgical History: Appendectomy, Breast Surgery, Cholecystectomy, Orthopedic Surgery Additional Past Surgical History / Comment(s): "rt leg sx"artificial artery". Bilateral knee replacements. 2016-rt rotaotr cuff sxLeft breast surgery for benign tumor. Epidurals to lower back. heart cath 12-08-17, quad cabg 12-11-17, colectomy/ileostomy- has abd wound w/ wound vac. picc line since removed. Past Anesthesia/Blood Transfusion Reactions: No Reported Reaction Past Psychological History: Anxiety, Depression Smoking Status: Former smoker Past Alcohol Use History: Rare Past Drug Use History: None Reported - Past Family History Mother Family Medical History: Cancer Additional Family Medical History / Comment(s): Uterine cancer. General Exam - General Exam Comments Initial Comments: General: The patient is awake and alert, in no distress, and does not appear acutely ill. Gastrointestinal: Abdomen soft on palpation. Patient is hospice sites of the right side of the abdomen and there is some formed stool coming from the medial aspect of the site. Musculoskeletal: Normal ROM, no tenderness. Neurological: A&O x 3. CN II-XII intact, There are no obvious motor or sensory deficits. Coordination appears grossly intact. Speech is normal. Skin: Skin is warm and dry and no rashes or lesions are noted. Psychiatric: Cooperative, appropriate mood & affect, normal judgment. Limitations: no limitations Course Vital Signs 04/08/18 11:01 Temperature 97.9 F Pulse Rate 83 Respiratory 20 Rate Blood Pressure 134/83 O2 Sat by Pulse 100 Oximetry Medical Decision Making - Medical Decision Making Nursing staff did remove ostomy bag and cleaned area placed a new ostomy bag over the site. There is no leaking at this time. Patient is doing well be discharged home to follow-up with surgeon and ostomy nurse. Disposition Clinical Impression: Encounter for ostomy nurse consultation Disposition: HOME SELF-CARE Condition: Good Instructions: Colostomy Care (ED) Additional Instructions: Please follow-up with the surgeon/ostomy nurse tomorrow as discussed. Please return to emergency room for any other concerns. Is patient prescribed a controlled substance at d/c from ED?: No Referrals: Diaz Alcala DO [Primary Care Provider] - 1-2 days Time of Disposition: 14:29
[2018-04-08 14:35] VITALS: BP 132/57; PULSE 74; RESP 16; TEMP 98.2
== END 2018-04-08 14:30 | disposition home or self-care (01) ==
LOC: EC 10:42
DX: Z43.3 Encounter for attention to colostomy (principal); I48.91 Unspecified atrial fibrillation; I25.10 Atherosclerotic heart disease of native coronary artery without angina pectoris; E78.5 Hyperlipidemia, unspecified; I10 Essential (primary) hypertension; M19.90 Unspecified osteoarthritis, unspecified site; E07.9 Disorder of thyroid, unspecified; F41.9 Anxiety disorder, unspecified; F32.9 Major depressive disorder, single episode, unspecified; Z95.1 Presence of aortocoronary bypass graft; Z90.49 Acquired absence of other specified parts of digestive tract; Z96.653 Presence of artificial knee joint, bilateral; Z95.818 Presence of other cardiac implants and grafts; Z87.891 Personal history of nicotine dependence; Z79.82 Long term (current) use of aspirin; Z79.01 Long term (current) use of anticoagulants; Z79.891 Long term (current) use of opiate analgesic; Z79.899 Other long term (current) drug therapy
CPT/HCPCS: 99283

== ENCOUNTER → 2018-04-12 | Outpatient (CLI) | payer MEDICARE | END | disposition home or self-care (01) | LOC: LABPAT 11:25 | PROVIDERS: ATTEND Surgery | DX: Z53.9 Procedure and treatment not carried out, unspecified reason (principal) ==

== ENCOUNTER 2018-04-13 08:20 | Inpatient (IN) | payer MEDICARE ==
[2018-04-11 11:48] VITALS: BMI 28.3
[~2018-04-13 08:20] MED LIST changes: -ASPIRIN 325 MG TAB PO ONE; +DEXAMETHASONE SOD PHOSPHATE 10 MG/ML 1 ML VIAL IV ONE; +HEPARIN SODIUM,PORCINE 5,000 UNIT/ML 1 ML VIAL SQ ONE; +HYDROmorphone 1 MG/ML 1 ML SYRINGE IVP PRN; +LACTATED RINGERS 1,000 ML IV SCH; +LIDOCAINE 1% 20 ML VIAL (10MG/ML) FOR IV START INTRADERMA PRN; +MIDAZOLAM 2 MG/2 ML VIAL IV PRN; +ONDANSETRON 4 MG/2 ML VIAL IVP ONE; -SODIUM CHLORIDE 0.9% 1,000 ML in EMPTY BAG 1 BAG IV ONE; +ceFAZolin IN SWFI 2 GM/20 ML SYRINGE IVP ONE; +fentaNYL (PF) 50 MCG/ML 2 ML AMP IV PRN; +metroNIDAZOLE-NS PMX 500 MG in SALINE 1 100ML.BAG IVPB ONE
--- NOTE | 2018-04-13 10:14 | P.GSHP ---
History of Present Illness H&P Date: 04/13/18 Chief Complaint: History of ischemic colitis This is a 73-year-old female who underwent CABG procedure. Patient had postoperative ischemic colitis requiring partial colectomy. Patient presents today for reversal of colostomy. Past Medical History Past Medical History: Atrial Fibrillation, Coronary Artery Disease (CAD), Diabetes Mellitus, Hyperlipidemia, Hypertension, Osteoarthritis (OA), Thyroid Disorder, Vascular Disorder Additional Past Medical History / Comment(s): Pt. states poor circulation in RLE due to an artificial bypass. past fall, Chronic back pain, bilateral shoulder problems djd has difficulty with rom.past uti-ecoli, per pt "blood clots to diaphraghm putting 3 holes in diaphragm" History of Any Multi-Drug Resistant Organisms: ESBL Date of last positivie culture/infection: 03/04/18 MDRO Source:: BODY FLUID ASPIRATE Past Surgical History: Appendectomy, Bowel Resection, Breast Surgery, Cholecystectomy, Coronary Bypass/CABG, Heart Catheterization, Orthopedic Surgery Additional Past Surgical History / Comment(s): "rt leg sx"artificial artery". Bilateral knee replacements. 2016-rt rotator cuff, Left breast surgery for benign tumor. Epidurals to lower back. heart cath 12-08-17, quad cabg 12-11-17, colectomy/ileostomy- colostomy, picc line since removed. Past Anesthesia/Blood Transfusion Reactions: No Reported Reaction Smoking Status: Former smoker - Past Family History Mother Family Medical History: Cancer Additional Family Medical History / Comment(s): Uterine cancer. Medications and Allergies Home Medications Medication Instructions Recorded Confirmed Type DULoxetine HCL [Cymbalta] 60 mg PO DAILY 12/14/16 04/11/18 History Ergocalciferol (Vitamin D2) 50,000 unit PO TU@1700 12/14/16 04/11/18 History [Vitamin D2] Calcium Carbonate [Tums] 500 mg PO QID PRN chew 01/09/18 04/11/18 Rx Atorvastatin [Lipitor] 40 mg PO HS 01/24/18 04/11/18 History Amiodarone [Cordarone] 100 mg PO DAILY 03/02/18 04/11/18 History Apixaban [Eliquis] 5 mg PO DAILY 03/02/18 04/11/18 History Ensure Clear 237 ml PO TID 03/02/18 04/11/18 History Furosemide [Lasix] 40 mg PO DAILY 03/02/18 04/11/18 History Latanoprost/Pf [Latanoprost 0.005% 1 drop RIGHT EYE HS@2100 03/02/18 04/11/18 History Eye Drop] Metoprolol Tartrate [Lopressor] 25 mg PO BID 03/02/18 04/11/18 History Ondansetron [Zofran] 4 mg PO Q6H PRN 03/02/18 04/11/18 History Potassium Chloride [Klor-Con M15] 15 meq PO DAILY 03/02/18 04/11/18 History oxyCODONE HCL 20 mg PO TID 03/02/18 04/11/18 History Losartan Potassium [Cozaar] 25 mg PO DAILY 04/11/18 04/11/18 History Allergies Allergy/AdvReac Type Severity Reaction Status Date / Time No Known Allergies Allergy Verified 04/11/18 11:28 Surgical - Exam - General well developed, no distress - Eyes PERRL - ENT normal pinna - Neck no masses, no bruits - Respiratory normal expansion - Cardiovascular Rhythm: regular - Abdomen Colostomy right abdominal wall Abdomen: soft, non tender Assessment and Plan Assessment: History of ischemic colitis. We'll perform reversal of colostomy.
[2018-04-13 10:30] LABS: Glucose,Whole Blood 161 mg/dL (75-99)
[2018-04-13] MEDS ORDERED: ALVIMOPAN 12 MG CAPSULE PO ONE (10:50)
[2018-04-13] MEDS ORDERED: NALOXONE 0.4 MG/ML 1 ML VIAL IV PRN (11:14)
[2018-04-13] MEDS ORDERED: diphenhydrAMINE 50 MG/ML 1 ML VIAL IVP PRN (11:14)
[2018-04-13] MEDS ORDERED: ACETAMINOPHEN TAB 500 MG TAB PO ONE (11:19)
[2018-04-13] MEDS ORDERED: MELOXICAM 7.5 MG TAB PO STA (11:28)
[2018-04-13] MEDS ORDERED: ePHEDrine SULFATE/0.9% NACL/PF 50 MG/5 ML SYRINGE IV ONE (12:55)
[2018-04-13] MEDS ORDERED: NEOSTIGMINE 1 MG/ML 10 ML VIAL ONE (12:55)
[2018-04-13] MEDS ORDERED: PROPOFOL 10 MG/ML 20 ML VIAL IV ONE (12:55)
[2018-04-13] MEDS ORDERED: LIDOCAINE 1% INJ 10MG/ML (20 ML MDV) ONE (12:55)
[2018-04-13] MEDS ORDERED: ROCURONIUM BROMIDE 10 MG/ML 10 ML VIAL IV ONE (12:55)
[2018-04-13] MEDS ORDERED: ONDANSETRON 4 MG/2 ML VIAL ONE (12:55)
[2018-04-13] MEDS ORDERED: PHENYLEPHRINE-0.9% NACL SYG 1 MG/10 ML SYRINGE ONE (12:55)
[2018-04-13] MEDS ORDERED: fentaNYL (PF) 50 MCG/ML 2 ML AMP ONE (12:55)
[2018-04-13] MEDS ORDERED: GLYCOPYRROLATE 0.2 MG/ML 2 ML VIAL ONE (12:55)
[2018-04-13] MEDS ORDERED: LACTATED RINGERS 1,000 ML IV ONE (13:31)
[2018-04-13] MEDS ORDERED: HYDROmorphone 1 MG/ML 1 ML SYRINGE IVP PRN (14:39)
[2018-04-13] MEDS ORDERED: BENZOCAINE/MENTHOL LOZENG 1 EACH LOZENGE MUCOUS MEM PRN (14:39)
--- NOTE | 2018-04-13 14:39 | P.OP ---
Date of Procedure: 04/13/18 Preoperative Diagnosis: History of ischemic colon Postoperative Diagnosis: History of ischemic colon Procedure(s) Performed: Exploratory laparotomy Lysis of adhesion Reversal of ileostomy with ileocolonic anastomosis Anesthesia: SHARON Surgeon: Christopher Montoya Estimated Blood Loss (ml): 20 Pathology: other (Terminal ileum) Condition: stable Description of Procedure: The patient's placed on the operative table in supine position. She received general anesthesia. Her abdomen was prepped and draped usual sterile fashion. The patient ileostomy in the right lower quadrant. The skin was incised through the old midline scar. There were extensive adhesions noted the midline. These were lysed with sharp dissection. Approximately 25 minutes of operative time used to lyse adhesions. Next the terminal ileum was visualized. The ileostomy was transected against the fascia using the linear cutter stapler. More adhesions of the small bowel were lysed. And then the descending colon was visualized. The descending colon was mobilized and then a [id number] functional end-to-end staple anastomosis created using the TONY and TA stapler. 3-0 GI silk suture was used as a crotch stitch. The abdomen was irrigated there is no bleeding seen. The skin was closed with andrei. Per vena wound devices placed on the skin andrei. Patient tolerated procedure well was sent to recovery room stable condition.
[2018-04-13] MEDS ORDERED: fentaNYL (PF) 50 MCG/ML 2 ML AMP INTRATHECA ONE (14:57)
[2018-04-13] MEDS ORDERED: LABETALOL SYRINGE 5 MG/ML IVP ONE (15:30)
[2018-04-13] MEDS: ROPIVACAINE 250 MG, HYDROMORPHONE (PF) 7.5 MG in SODIUM CHLORIDE 0.9% 199 ML EPIDURAL PRN ×2 (16:32→23:42)
[2018-04-13 16:34] LABS: Basophils # (A) 0.1 k/uL (0-0.2); Basophils % (A) 1 %; Eosinophils # (A) 0.1 k/uL (0-0.7); Eosinophils % (A) 0 %; HCT 39.1 % (34.0-46.0); HGB 11.6 gm/dL (11.4-16.0); Hypochromasia Marked; Lymphocytes % (A) 6 %; MCH 25.6 pg (25.0-35.0); MCHC 29.6 g/dL (31.0-37.0); MCV 86.6 fL (80.0-100.0); Mean Platelet Volume 6.4; Monocytes # (A) 0.2 k/uL (0-1.0); Monocytes % (A) 1 %; Neutrophils # (A) 14.5 k/uL (1.3-7.7); Neutrophils % (A) 91 %; Platelet Count 509 k/uL (150-450); RBC 4.51 m/uL (3.80-5.40); RDW 15.6 % (11.5-15.5); WBC 15.9 k/uL (3.8-10.6)
[2018-04-13] MEDS: D5-0.45% NACL WITH KCL 20MEQ/L 1,000 ML IV SCH (16:40)
[2018-04-13 16:47] LABS: Anion Gap 10 mmol/L; Blood Urea Nitrogen 10 mg/dL (7-17); Calcium 10.3 mg/dL (8.4-10.2); Carbon Dioxide 22 mmol/L (22-30); Chloride 108 mmol/L (98-107); Glucose 167 mg/dL (74-99); Potassium 4.2 mmol/L (3.5-5.1); Sodium 140 mmol/L (137-145)
[2018-04-13] MEDS: METOPROLOL TARTRATE 25 MG TAB PO SCH (20:37)
[2018-04-13] MEDS: ATORVASTATIN 40 MG TAB PO SCH (20:37)
[2018-04-13] MEDS: FAMOTIDINE 20 MG/2 ML VIAL IV SCH (20:37)
[2018-04-13] MEDS: LATANOPROST 0.005% OPHTH DROPS 2.5 ML BTL RIGHT EYE SCH (20:38)
--- NOTE | 2018-04-13 23:42 | CONS ---
CONSULTATION DATE OF CONSULTATION: 04/13/2018. REASON FOR CONSULTATION: Medical management requested by Dr. Montoya. CONSULTATION: This is a very pleasant 73-year-old patient in December of this year, patient had a coronary artery bypass followed by ischemic bowel resulting in ostomy and a wound VAC. The patient has had admissions on and off for intraabdominal abscess and she was in [facility] up till a week ago under care of Dr. Alcala. The patient's PICC line was discontinued last week ago and finished a course of antibiotics a week ago. The patient's ostomy has been leaking and patient did go down to see Dr. Montoya and Dr. Montoya decided to go and reverse the colostomy. Otherwise, patient has been tolerating a diet. Had actually started to walk independently. Currently he has got an incision wound VAC in place. He has had no fever or chills. REVIEW OF SYSTEMS: CONSTITUTIONAL: None. HEENT: None. RESPIRATORY none. GASTROINTESTINAL: As above. GENITOURINARY: None. MUSCULOSKELETAL: None. DERMATOLOGICAL, HEMATOLOGIC, LYMPHATIC: none. PSYCHIATRY none. NEUROLOGICAL: None. PAST MEDICAL HISTORY: Coronary artery disease with bypass, acute ischemic bowel with perforation, paroxysmal atrial fibrillation, peripheral artery disease, hypothyroid, diabetes mellitus type 2, chronic low back pain from arthritis, depression, hyperlipidemia, hypertension, recurrent intraabdominal abscess. PAST SURGICAL HISTORY: Coronary artery bypass on December 11, 2017. Acute ischemic bowel leading to perforation and right transverse colectomy and resulting in ileostomy, appendectomy, breast surgery, cholecystectomy, bilateral knee replacement, right rotator cuff surgery, left breast surgery for benign tumor. PSYCH HISTORY: Anxiety and depression. SOCIAL HISTORY: The patient was at the [facility] till a week ago. Now back home. No tobacco. No alcohol. Patient did smoke for 43 years. Stopped in 2018. . FAMILY HISTORY: Uterine cancer. HOME MEDICATIONS: 1. Oxycodone 20 mg p.o. t.i.d. 2. Potassium 15 mEq p.o. daily. 3. Zofran 4 mg q.6 p.r.n. 4. Lopressor 25 mg b.i.d. 5. Cozaar 25 mg p.o. daily. 6. Latanoprost 0.005% 1 drop to right eye q.h.s. 7. Lasix 40 mg a day. 8. Vitamin D2 02822 units on Tuesdays. 9. Ensure Clear 237 mL p.o. t.i.d. 10.Cymbalta 60 mg p.o. daily. 11.TUMS. 12.Lipitor 40 mg at bedtime. 13.Eliquis 5 mg a day. 14.Cordarone 100 mg a day. ALLERGIES: None. PHYSICAL EXAMINATION: VITAL SIGNS: Temperature 98.1, pulse 86, respirations 16, blood pressure 109/72, pulse ox . GENERAL APPEARANCE: Average build, lying in bed, awake. EYES: Prominent. Pupils equal. Conjunctivae normal. HEENT: External appearance of nose and ears normal. Oral cavity normal. NECK: JVD not raised. Mass not palpable. RESPIRATORY: Effort normal. LUNGS: Diminished breath sounds. CARDIOVASCULAR: 1st and 2nd sounds normal. No edema. ABDOMEN: Soft. Incision wound VAC in place. Liver and spleen not palpable. Some tenderness. LYMPHATICS: No lymph nodes palpable in the neck and axilla. PSYCHIATRY: Alert and oriented x3. Mood and affect normal. INVESTIGATIONS: White count 15.9, hemoglobin 11.6, platelets 509, potassium 4.2. BUN and creatinine is normal. ASSESSMENT: 1. Status post ileostomy reversal. 2. History of recurrent intraabdominal abscess in a patient with ischemic bowel. Completed a course of antibiotics 1 week prior to admission. 3. Coronary artery with coronary artery bypass in November of this year. 4. Ischemic bowel with perforation with right transverse colectomy and ileostomy in November of this year. 5. Paroxysmal atrial fibrillation for which patient is on Eliquis. 6. Peripheral artery disease. 7. Hypothyroidism. 8. Diabetes mellitus type 2. 9. Chronic low back pain from arthritis. 10.Depression, not otherwise specified. 11.Hyperlipidemia. 12.Essential hypertension. 13.Reactive thrombocytosis. PLAN: Patient's home medications are to be resumed when okay with Dr. Montoya. Also anticoagulation to be resumed when okay with Dr. Montoya. Will keep eye on patient's electrolytes. Care was discussed the patient. Has got Venodyne boots also for DVT prophylaxis. Copy to Dr. Alcala. MMODL / IJN: [id number] /
[2018-04-14] MEDS: D5-0.45% NACL WITH KCL 20MEQ/L 1,000 ML IV SCH ×3 (01:30→09:03)
[2018-04-14] MEDS: ROPIVACAINE 250 MG, HYDROMORPHONE (PF) 7.5 MG in SODIUM CHLORIDE 0.9% 199 ML EPIDURAL PRN ×2 (04:51→16:03)
[2018-04-14] MEDS: FUROSEMIDE 40 MG TAB PO SCH (09:01)
[2018-04-14] MEDS: METOPROLOL TARTRATE 25 MG TAB PO SCH ×2 (09:01→22:09)
[2018-04-14] MEDS: AMIODARONE 100 MG TAB PO SCH (09:01)
[2018-04-14] MEDS: LOSARTAN 25 MG TAB PO SCH (09:01)
[2018-04-14] MEDS: DULoxetine HCL 60 MG CAPSULE.DR PO SCH (09:01)
[2018-04-14] MEDS: FAMOTIDINE 20 MG/2 ML VIAL IV SCH ×2 (09:04→22:09)
--- NOTE | 2018-04-14 14:34 | P.GSCN ---
History of Present Illness Consult date: 04/14/18 Reason for Consult: Known to us from previous surgery Requesting physician: Christopher Montoya History of present illness: This is a 73-year-old female patient who is known to our service as we performed urgent triple coronary artery bypass grafting on 12/11/2017. She had postoperative complications of acute blood loss anemia, pneumoperitoneum, necrosis of the transverse colon, right colon, septic shock, prolonged mechanical ventilation, left-sided pleural effusion, and separation of her ileostomy stoma. She went to subacute rehab upon discharge with wound VAC and colostomy in place. She returned to [facility] yesterday for reversal of her colostomy by Dr. Montoya. Dr. Olvera from cardiothoracic surgery was consulted as she is known to our service. Review of Systems Review of systems was completed. Past Medical History Past Medical History: Atrial Fibrillation, Coronary Artery Disease (CAD), Diabetes Mellitus, Hyperlipidemia, Hypertension, Osteoarthritis (OA), Thyroid Disorder, Vascular Disorder Additional Past Medical History / Comment(s): Pt. states poor circulation in RLE due to an artificial bypass. past fall, Chronic back pain, bilateral shoulder problems djd has difficulty with rom.past uti-ecoli, per pt "blood clots to diaphraghm putting 3 holes in diaphragm" History of Any Multi-Drug Resistant Organisms: ESBL Year Discovered:: 03/04/18 MDRO Source:: BODY FLUID ASPIRATE Past Surgical History: Appendectomy, Bowel Resection, Breast Surgery, Cholecystectomy, Coronary Bypass/CABG, Heart Catheterization, Orthopedic Surgery Additional Past Surgical History / Comment(s): "rt leg sx"artificial artery". Bilateral knee replacements. 2016-rt rotator cuff, Left breast surgery for benign tumor. Epidurals to lower back. heart cath 12-08-17, quad cabg 12-11-17, colectomy/ileostomy- colostomy, picc line since removed. Past Anesthesia/Blood Transfusion Reactions: No Reported Reaction Past Psychological History: Anxiety, Depression Additional Psychological History / Comment(s): lives in [place] Smoking Status: Former smoker Past Alcohol Use History: Rare Additional Past Alcohol Use History / Comment(s): started smoking 1965 Quit smoking in 2007, smoked 1 PPD Past Drug Use History: None Reported - Past Family History Mother Family Medical History: Cancer Additional Family Medical History / Comment(s): Uterine cancer. Medications and Allergies Home Medications Medication Instructions Recorded Confirmed Type DULoxetine HCL [Cymbalta] 60 mg PO DAILY 12/14/16 04/13/18 History Ergocalciferol (Vitamin D2) 50,000 unit PO TU@1700 12/14/16 04/13/18 History [Vitamin D2] Calcium Carbonate [Tums] 500 mg PO QID PRN chew 01/09/18 04/13/18 Rx Atorvastatin [Lipitor] 40 mg PO HS 01/24/18 04/13/18 History Amiodarone [Cordarone] 100 mg PO DAILY 03/02/18 04/13/18 History Apixaban [Eliquis] 5 mg PO DAILY 03/02/18 04/13/18 History Ensure Clear 237 ml PO TID 03/02/18 04/13/18 History Furosemide [Lasix] 40 mg PO DAILY 03/02/18 04/13/18 History Latanoprost/Pf [Latanoprost 0.005% 1 drop RIGHT EYE HS@2100 03/02/18 04/13/18 History Eye Drop] Metoprolol Tartrate [Lopressor] 25 mg PO BID 03/02/18 04/13/18 History Ondansetron [Zofran] 4 mg PO Q6H PRN 03/02/18 04/13/18 History Potassium Chloride [Klor-Con M15] 15 meq PO DAILY 03/02/18 04/13/18 History oxyCODONE HCL 20 mg PO TID 03/02/18 04/13/18 History Losartan Potassium [Cozaar] 25 mg PO DAILY 04/11/18 04/13/18 History Allergies Allergy/AdvReac Type Severity Reaction Status Date / Time No Known Allergies Allergy Verified 04/13/18 10:35 Surgical - Exam Vital Signs Temp Pulse Resp BP Pulse Ox 97.3 F L 71 16 133/60 98 04/13/18 10:31 04/13/18 10:31 04/13/18 10:31 04/13/18 10:31 04/13/18 10:31 - General well developed, well nourished, no distress - Eyes PERRL, normal ocular movement - ENT no hearing loss - Neck no masses, no bruits, trachea midline - Respiratory normal expansion, normal respiratory effort, clear to auscultation - Cardiovascular Rhythm: regular Heart Sounds: normal: S1, S2 - Abdomen Abdomen: soft, non tender, surgical scars - Genitourinary Deferred - Rectum Deferred - Integumentary Well-healed midsternal incision. Abdominal incision with wound VAC in place. no rash, no growths - Neurologic normal coordination, normal sensation - Musculoskeletal normal gait - Psychiatric oriented to time, oriented to person, oriented to place, speech is normal, memory intact Results - Labs 04/13/18 16:11 04/13/18 16:11 Abnormal Lab Results - Last 24 Hours (Table) 04/13/18 04/13/18 Range/Units 16:11 16:11 WBC 15.9 H (3.8-10.6) k/uL MCHC 29.6 L (31.0-37.0) g/dL RDW 15.6 H (11.5-15.5) % Plt Count 509 H (150-450) k/uL Neutrophils # 14.5 H (1.3-7.7) k/uL Chloride 108 H (98-107) mmol/L Glucose 167 H (74-99) mg/dL Calcium 10.3 H (8.4-10.2) mg/dL Diabetes panel 04/13/18 Range/Units 16:11 Sodium 140 (137-145) mmol/L Potassium 4.2 (3.5-5.1) mmol/L Chloride 108 H (98-107) mmol/L Carbon Dioxide 22 (22-30) mmol/L BUN 10 (7-17) mg/dL Creatinine 0.58 (0.52-1.04) mg/dL Glucose 167 H (74-99) mg/dL Calcium 10.3 H (8.4-10.2) mg/dL Calcium panel 04/13/18 Range/Units 16:11 Calcium 10.3 H (8.4-10.2) mg/dL Pituitary panel 04/13/18 Range/Units 16:11 Sodium 140 (137-145) mmol/L Potassium 4.2 (3.5-5.1) mmol/L Chloride 108 H (98-107) mmol/L Carbon Dioxide 22 (22-30) mmol/L BUN 10 (7-17) mg/dL Creatinine 0.58 (0.52-1.04) mg/dL Glucose 167 H (74-99) mg/dL Calcium 10.3 H (8.4-10.2) mg/dL Adrenal panel 04/13/18 Range/Units 16:11 Sodium 140 (137-145) mmol/L Potassium 4.2 (3.5-5.1) mmol/L Chloride 108 H (98-107) mmol/L Carbon Dioxide 22 (22-30) mmol/L BUN 10 (7-17) mg/dL Creatinine 0.58 (0.52-1.04) mg/dL Glucose 167 H (74-99) mg/dL Calcium 10.3 H (8.4-10.2) mg/dL Assessment and Plan (1) Status post aorto-coronary artery bypass graft Current Visit: Yes Status: Acute Code(s): Z95.1 - PRESENCE OF AORTOCORONARY BYPASS GRAFT SNOMED Code(s): 879668694 Plan: The patient was seen and examined at the bedside. Chart was reviewed. No surgical intervention or management from our standpoint as patient is several months post surgery. Medical management per primary care service, surgical management per Dr. Montoya. Encourage incentive spirometry use. Pain control with current medication regimen. We'll stop in to see patient on an as needed basis. Thank you Dr. Montoya for this consult. Please call us with any questions. Time with Patient: Greater than 30
--- NOTE | 2018-04-14 14:45 | P.PN ---
Subjective Progress Note Date: 04/14/18 CHIEF COMPLAINT: Ileostomy revision HISTORY OF PRESENT ILLNESS: The patient is a 73-year-old female with previous history of ischemic colitis. She is status post revision of ileostomy. She reports her pain is poorly controlled despite having an epidural. PHYSICAL EXAM: VITAL SIGNS: GENERAL: Well-developed in no acute distress. HEENT: No sclera icterus. Extraocular movements grossly intact. Moist buccal mucosa. Head is atraumatic, normocephalic. Hears conversational speech. No nasal drainage. NECK: Supple without lymphadenopathy. CHEST: Non-labored respirations and equal bilateral excursions. CARDIOVASCULAR: Palpable 2+ radial pulses. ABDOMEN: No peritonitis. Dressing intact MUSCULOSKELETAL: No clubbing, cyanosis or edema. NEUROLOGIC: No focal or lateralizing signs. Cranial nerves II through XII grossly intact. PSYCH: Appropriate affect. Alert and oriented to person, place and time. SKIN: Well perfused. Good skin turgor. ASSESSMENT: 1. History of ischemic colitis 2. Status post revision ileostomy PLAN: 1. Adjustment of epidural for pain 2. May need oral pain medication as well Objective - Vital Signs Vital signs: Vital Signs Temp 98.1 F 04/14/18 07:00 Pulse 85 04/14/18 07:00 Resp 14 04/14/18 07:00 BP 142/83 04/14/18 07:00 Pulse Ox 97 04/14/18 07:00 Intake & Output 04/13/18 04/14/18 04/14/18 18:59 06:59 18:59 Intake Total 1800.030 0563.35 200 Output Total 250 380 Balance 6529.219 4192.35 200 Weight 72.575 kg Intake: IV 1700 Intake, IV Titration 9.883 1342.35 Amount D5-0.45% NaCl with KCl 1250 20Meq/l 1,000 ml @ 125 mls/hr IV .Q8H [facility] Rx#: [id number] Ropivacaine 250 mg 9.883 92.35 Hydromorphone (Pf) 7.5 mg In Sodium Chloride 0.9% 199 ml @ Per Protocol EPIDURAL .Q0M PRN Rx#: [id number] Oral 440 200 Output: Urine 200 380 Uretheral ([place]maguer) 380 Estimated Blood Loss 50 Other: Voiding Method Indwelling Catheter Indwelling Catheter Indwelling Catheter - Labs CBC & Chem 7: 04/13/18 16:11 04/13/18 16:11 Labs: Abnormal Lab Results - Last 24 Hours (Table) 04/13/18 04/13/18 Range/Units 16:11 16:11 WBC 15.9 H (3.8-10.6) k/uL MCHC 29.6 L (31.0-37.0) g/dL RDW 15.6 H (11.5-15.5) % Plt Count 509 H (150-450) k/uL Neutrophils # 14.5 H (1.3-7.7) k/uL Chloride 108 H (98-107) mmol/L Glucose 167 H (74-99) mg/dL Calcium 10.3 H (8.4-10.2) mg/dL
--- NOTE | 2018-04-14 15:14 | P.PN ---
Progress Note - Text 04/14 1877 73-year-old female status post colostomy reversal by Dr. Montoya. Patient has an epidural catheter was solution running at 10 mL an hour with a VAS of. No motor or sensory deficits to continue epidural infusion
[2018-04-14] MEDS: METOCLOPRAMIDE 5 MG/ML 2 ML VIAL IVP PRN (17:34)
--- NOTE | 2018-04-14 19:23 | PN ---
PROGRESS NOTE DATE OF SERVICE: 04/14/2018 PRESENTING COMPLAINT: Ileostomy reversal. INTERVAL HISTORY: Patient is status post ileostomy reversal. Has also got an epidural in place. Not passing any flatus. Pain is controlled. Is on ice chips. Lying in bed. REVIEW OF SYSTEMS: Done for constitutional, cardiovascular, GI, pulmonary; relevant findings as above. CURRENT MEDICATIONS: Reviewed that include epidural. PHYSICAL EXAMINATION: Temperature 98.1, pulse 85, respirations 14, blood pressure 142/83, pulse ox 97% on room air. GENERAL APPEARANCE: Laying in bed, awake. EYES: Pupils equal. Conjunctivae normal. NECK: JVD not raised. Mass not palpable. Respiratory effort increased. LUNGS: Decreased breath sounds. CARDIOVASCULAR: First and second sounds normal. No edema. ABDOMEN: Soft. Incision wound VAC in place. Liver and spleen not palpable. Sluggish bowel sounds. PSYCHIATRY: Alert and oriented x3. Mood and affect normal. INVESTIGATIONS: No blood work from today. ASSESSMENT: 1. Status post ileostomy reversal. 2. History of recurrent intraabdominal abscess in a patient with ischemic bowel, completed course of antibiotic 1 week prior to admission. 3. Coronary artery disease with coronary bypass in November of this year. 4. Ischemic bowel with perforation, right transverse colectomy and ileostomy in November of this year. 5. Persistent atrial fibrillation for which the patient is on Eliquis. 6. Peripheral artery disease. 7. Hypothyroidism. 8. Diabetes mellitus type 2. 9. Low back pain from arthritis. 10.Depression, not otherwise specified. 11.Hyperlipidemia. 12.Essential hypertension. 13.Reactive thrombocytosis. PLAN: Continue current medication and treatment plan, IV fluids. Encourage the patient to set up. Did communicate with Dr. Montoya to resume the Eliquis when okay with him. Care was discussed with the patient. MMODL / IJN: [id number] /
[2018-04-14] MEDS: LATANOPROST 0.005% OPHTH DROPS 2.5 ML BTL RIGHT EYE SCH (22:08)
[2018-04-14] MEDS: ATORVASTATIN 40 MG TAB PO SCH (22:09)
[2018-04-15] MEDS: D5-0.45% NACL WITH KCL 20MEQ/L 1,000 ML IV SCH ×3 (00:16→16:31)
[2018-04-15] MEDS: HEPARIN SODIUM,PORCINE 5,000 UNIT/ML 1 ML VIAL SQ SCH ×3 (00:36→20:28)
[2018-04-15 08:21] LABS: Anion Gap 10 mmol/L; Blood Urea Nitrogen 7 mg/dL (7-17); Calcium 9.1 mg/dL (8.4-10.2); Carbon Dioxide 20 mmol/L (22-30); Chloride 106 mmol/L (98-107); Glucose 143 mg/dL (74-99); Potassium 3.8 mmol/L (3.5-5.1); Sodium 136 mmol/L (137-145)
[2018-04-15 08:34] LABS: Basophils # (A) 0.1 k/uL (0-0.2); Basophils % (A) 0 %; Eosinophils # (A) 0.1 k/uL (0-0.7); Eosinophils % (A) 1 %; HCT 29.6 % (34.0-46.0); Lymphocytes # (A) 1.2 k/uL (1.0-4.8); Lymphocytes % (A) 7 %; MCHC 31.8 g/dL (31.0-37.0); MCV 84.6 fL (80.0-100.0); Mean Platelet Volume 7.6; Monocytes # (A) 0.8 k/uL (0-1.0); Monocytes % (A) 5 %; Neutrophils # (A) 14.5 k/uL (1.3-7.7); Neutrophils % (A) 87 %; Platelet Count 379 k/uL (150-450); RBC 3.49 m/uL (3.80-5.40); RDW 15.9 % (11.5-15.5); WBC 16.8 k/uL (3.8-10.6)
[2018-04-15 08:44] LABS: HGB 9.4 gm/dL (11.4-16.0)
[2018-04-15] MEDS: FAMOTIDINE 20 MG/2 ML VIAL IV SCH ×2 (08:53→20:28)
[2018-04-15] MEDS: DULoxetine HCL 60 MG CAPSULE.DR PO SCH (08:54)
[2018-04-15] MEDS: AMIODARONE 100 MG TAB PO SCH (08:54)
[2018-04-15] MEDS: LOSARTAN 25 MG TAB PO SCH (08:54)
[2018-04-15] MEDS: METOPROLOL TARTRATE 25 MG TAB PO SCH ×2 (08:54→20:29)
[2018-04-15] MEDS: FUROSEMIDE 40 MG TAB PO SCH (08:54)
--- NOTE | 2018-04-15 12:03 | P.PN ---
Subjective Progress Note Date: 04/15/18 CHIEF COMPLAINT: Ileostomy reversal HISTORY OF PRESENT ILLNESS: The patient is a 73-year-old female with previous history of ischemic colitis. She is status post reversal of ileostomy. Today her pain is well-controlled. She has passed flatus and is having bowel movements. She has an appetite and eager to eat. Epidural is present. PHYSICAL EXAM: VITAL SIGNS: GENERAL: Well-developed in no acute distress. HEENT: No sclera icterus. Extraocular movements grossly intact. Moist buccal mucosa. Head is atraumatic, normocephalic. Hears conversational speech. No nasal drainage. NECK: Supple without lymphadenopathy. CHEST: Non-labored respirations and equal bilateral excursions. CARDIOVASCULAR: Palpable 2+ radial pulses. ABDOMEN: No peritonitis. Dressing intact. MUSCULOSKELETAL: No clubbing, cyanosis or edema. NEUROLOGIC: No focal or lateralizing signs. Cranial nerves II through XII grossly intact. PSYCH: Appropriate affect. Alert and oriented to person, place and time. SKIN: Well perfused. Good skin turgor. ASSESSMENT: 1. History of ischemic colitis 2. Status post ileostomy reversal PLAN: 1. Start diet. 2. Continure epidural Objective - Vital Signs Vital signs: Vital Signs Temp 98.1 F 04/15/18 08:54 Pulse 83 04/15/18 08:54 Resp 16 04/15/18 08:54 BP 135/84 04/15/18 08:54 Pulse Ox 96 04/15/18 08:54 Intake & Output 04/14/18 04/15/18 04/15/18 18:59 06:59 18:59 Intake Total 2112 1250 Output Total 1900 500 Balance 2 -650 -500 Weight 72.575 kg Intake: Intake, IV Titration 1112 1250 Amount D5-0.45% NaCl with KCl 1000 1250 20Meq/l 1,000 ml @ 125 mls/hr IV .Q8H [facility] Rx#: [id number] Ropivacaine 250 mg 112 Hydromorphone (Pf) 7.5 mg In Sodium Chloride 0.9% 199 ml @ Per Protocol EPIDURAL .Q0M PRN Rx#: [id number] Oral 1000 Output: Urine 1900 500 Other: Voiding Method Indwelling Catheter Indwelling Catheter Indwelling Catheter - Labs CBC & Chem 7: 04/15/18 06:44 04/15/18 06:44 Labs: Abnormal Lab Results - Last 24 Hours (Table) 04/15/18 04/15/18 Range/Units 06:44 06:44 WBC 16.8 H (3.8-10.6) k/uL RBC 3.49 L (3.80-5.40) m/uL Hgb 9.4 L D (11.4-16.0) gm/dL Hct 29.6 L (34.0-46.0) % RDW 15.9 H (11.5-15.5) % Neutrophils # 14.5 H (1.3-7.7) k/uL Sodium 136 L (137-145) mmol/L Carbon Dioxide 20 L (22-30) mmol/L Glucose 143 H (74-99) mg/dL Assessment and Plan (1) Status post reversal of ileostomy Current Visit: Yes Status: Acute Code(s): Z98.890 - OTHER SPECIFIED POSTPROCEDURAL STATES SNOMED Code(s): 70043307102576324 (2) Ischemic colitis Current Visit: Yes Status: Acute Code(s): K55.9 - VASCULAR DISORDER OF INTESTINE, UNSPECIFIED SNOMED Code(s): 86134402
[2018-04-15] MEDS: ROPIVACAINE 250 MG, HYDROMORPHONE (PF) 7.5 MG in SODIUM CHLORIDE 0.9% 199 ML EPIDURAL PRN (15:11)
[2018-04-15] MEDS: METOCLOPRAMIDE 5 MG/ML 2 ML VIAL IVP PRN (16:29)
--- NOTE | 2018-04-15 19:25 | P.PN ---
Progress Note - Text 04/15 1815 73-year-old female status post colostomy reversal by Dr. malcolm. Patient has an epidural catheter for postop pain control with the solution running at 10 mL an hour. She has a VAS of 2. No motor or sensory deficit noted. Plan to DC epidural in a.m.
[2018-04-15] MEDS: LATANOPROST 0.005% OPHTH DROPS 2.5 ML BTL RIGHT EYE SCH (20:29)
[2018-04-15] MEDS: ATORVASTATIN 40 MG TAB PO SCH (20:29)
--- NOTE | 2018-04-15 22:56 | PN ---
PROGRESS NOTE DATE OF SERVICE: April 15, 2018. PRESENTING COMPLAINT: Ileostomy reversal. INTERVAL HISTORY: Patient is status post ileostomy reversal. Epidural remains in place. Pain is controlled. She thinks she may have had a smear of stool. No nausea, vomiting. Diet has been advanced to clear liquids by Dr. Carlton covering for Dr. Montoya. Daughter at the bedside. Otherwise, patient does feel comfortable up to the bathroom. Has been out of bed. REVIEW OF SYSTEMS: Done for constitutional, cardiovascular, GI, pulmonary; relevant findings as above. CURRENT MEDICATIONS: Reviewed that includes epidural. PHYSICAL EXAMINATION: VITAL SIGNS: Temperature 98.3, pulse 77, respiratory rate 16, blood pressure 120/80, pulse ox 99% on room air. GENERAL APPEARANCE: Lying in bed, comfortable. Awake. EYES: Pupils equal. Conjunctivae normal. NECK: JVD not raised. Mass not palpable. RESPIRATORY effort: Normal. LUNGS: Decreased breath sounds. CARDIOVASCULAR: 1st and 2nd sounds normal. No edema. ABDOMEN: Soft. Incision wound VAC in place. Liver and spleen not palpable. Sluggish bowel sounds. PSYCHIATRY: Alert and oriented x3. Mood and affect normal. INVESTIGATIONS: White count 6.8, hemoglobin 9.4, potassium 3.8. ASSESSMENT: Continue current medication and treatment plan. Follow. Eliquis is to be resumed when okay with surgery. The patient is complaining of some left abdominal pain, but examination is currently benign. Follow closely. MMODL / IJN: [id number] /
[2018-04-16] MEDS: D5-0.45% NACL WITH KCL 20MEQ/L 1,000 ML IV SCH ×4 (01:06→23:03)
[2018-04-16] MEDS: METOPROLOL TARTRATE 25 MG TAB PO SCH ×2 (08:25→21:20)
[2018-04-16] MEDS: LOSARTAN 25 MG TAB PO SCH (08:25)
[2018-04-16] MEDS: FUROSEMIDE 40 MG TAB PO SCH (08:25)
[2018-04-16] MEDS: AMIODARONE 100 MG TAB PO SCH (08:25)
[2018-04-16] MEDS: DULoxetine HCL 60 MG CAPSULE.DR PO SCH (08:25)
[2018-04-16] MEDS: FAMOTIDINE 20 MG/2 ML VIAL IV SCH (08:26)
[2018-04-16] MEDS: HEPARIN SODIUM,PORCINE 5,000 UNIT/ML 1 ML VIAL SQ SCH ×2 (08:26→21:19)
[2018-04-16] MEDS: ONDANSETRON 4 MG/2 ML VIAL IVP PRN (08:53)
[2018-04-16 09:19] LABS: Basophils # (A) 0.1 k/uL (0-0.2); Basophils % (A) 0 %; Eosinophils # (A) 0.4 k/uL (0-0.7); Eosinophils % (A) 3 %; HCT 32.3 % (34.0-46.0); HGB 10.2 gm/dL (11.4-16.0); Lymphocytes # (A) 1.4 k/uL (1.0-4.8); Lymphocytes % (A) 9 %; MCH 26.6 pg (25.0-35.0); MCHC 31.5 g/dL (31.0-37.0); MCV 84.5 fL (80.0-100.0); Mean Platelet Volume 6.9; Monocytes # (A) 0.7 k/uL (0-1.0); Monocytes % (A) 4 %; Neutrophils # (A) 13.2 k/uL (1.3-7.7); Neutrophils % (A) 83 %; Platelet Count 453 k/uL (150-450); RBC 3.83 m/uL (3.80-5.40); RDW 15.6 % (11.5-15.5); WBC 15.9 k/uL (3.8-10.6)
[2018-04-16 09:31] LABS: Anion Gap 9 mmol/L; Blood Urea Nitrogen 5 mg/dL (7-17); Calcium 8.9 mg/dL (8.4-10.2); Carbon Dioxide 23 mmol/L (22-30); Chloride 103 mmol/L (98-107); Glucose 158 mg/dL (74-99); Potassium 3.8 mmol/L (3.5-5.1); Sodium 135 mmol/L (137-145)
--- NOTE | 2018-04-16 09:37 | P.PN ---
Progress Note - Text 04/16 630am 73-year-old female status post colostomy reversal by Dr. malcolm. Patient has an epidural catheter for postop pain control with the solution running at 10 mL an hour and she had a comfortable night. Plan to DC epidural nurse informed
--- NOTE | 2018-04-16 14:39 | P.PN ---
Subjective Progress Note Date: 04/16/18 pleasant 73-year-old female seen resting in bed. Patient states has been up ambulating in the room. Pain medication effective for pain control. States has no appetite feels a sensation of nausea no emesis.prevena wound system in place states passing gas no stool.abdomen is soft nondistended surgical tenderness appropriate postop April 13 exploratory laparotomy, lysis of adhesions Reversal of ileostomy with ileocolonic anastomosisfor history of an ischemic colon Objective - Vital Signs Vital signs: Vital Signs Temp 97.6 F 04/16/18 08:33 Pulse 83 04/16/18 08:33 Resp 16 04/16/18 08:33 BP 146/89 04/16/18 08:33 Pulse Ox 96 04/16/18 08:33 Intake & Output 04/15/18 04/16/18 04/16/18 18:59 06:59 18:59 Intake Total 7191.703 9525 240 Output Total 1400 1675 800 Balance -293.667 55 -560 Intake: Intake, IV Titration 5601.159 7867 Amount D5-0.45% NaCl with KCl 875 1250 20Meq/l 1,000 ml @ 125 mls/hr IV .Q8H WILLIAM Rx#: [id number] Ropivacaine 250 mg 231.333 Hydromorphone (Pf) 7.5 mg In Sodium Chloride 0.9% 199 ml @ Per Protocol EPIDURAL .Q0M PRN Rx#: [id number] Oral 480 240 Output: Urine 1400 1675 800 Uretheral ([place]) 1675 800 Other: Voiding Method Indwelling Catheter Indwelling Catheter Indwelling Catheter - Exam physical exam 73-year-old female resting in bed appearing in no acute distress lungs adequate air movement bilaterally on room air Heart S1-S2 audible regular Abdomen soft not distended bowel tones present states passing gas tolerating diet no stool prevenia wound system in place dressings dry Extremities no edema - Labs CBC & Chem 7: 04/16/18 08:32 04/16/18 08:32 Labs: Abnormal Lab Results - Last 24 Hours (Table) 04/16/18 04/16/18 Range/Units 08:32 08:32 WBC 15.9 H (3.8-10.6) k/uL Hgb 10.2 L (11.4-16.0) gm/dL Hct 32.3 L (34.0-46.0) % RDW 15.6 H (11.5-15.5) % Plt Count 453 H (150-450) k/uL Neutrophils # 13.2 H (1.3-7.7) k/uL Sodium 135 L (137-145) mmol/L BUN 5 L (7-17) mg/dL Creatinine 0.49 L (0.52-1.04) mg/dL Glucose 158 H (74-99) mg/dL Assessment and Plan Assessment: impression discharge diagnosis Postop April 13 exploratory laparotomy, lysis of adhesions Reversal of ileostomy with ileocolonic anastomosis for history of ischemic colon known coronary artery disease with a recent coronary artery bypass grafting in November 2017 Postop after the coronary artery bypass procedure developed ischemic colitis requiring partial colectomy Status post March for CT-guided abscess drainage with percutaneous drain in the left upper quadrant place port for abdominal abscess significant history of intra-abdominal infection requiring several interventions Paroxysmal atrial fibrillation on elquis Right colectomy, transverse colectomy, takedown splenic flexure, 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 coli and group be coccus plan advance diet Increase activity Continue postop surgical care DVT and GI prophylaxis Further surgical recommendations pending Follow-up on pending surgical path report The above impression and plan of care have been discussed and directed by signing physician. Missy Baca nurse practitioner acting as scribe for signing physician.
[2018-04-16] MEDS: FAMOTIDINE 20 MG TAB PO SCH (19:35)
[2018-04-16] MEDS: CALCIUM CARBONATE 500 MG CHEWABLE PO PRN (20:06)
[2018-04-16] MEDS: LATANOPROST 0.005% OPHTH DROPS 2.5 ML BTL RIGHT EYE SCH (21:19)
[2018-04-16] MEDS: ATORVASTATIN 40 MG TAB PO SCH (21:20)
--- NOTE | 2018-04-16 23:58 | PN ---
PROGRESS NOTE ADDENDUM: DATE OF SERVICE: 04/15/2018. ASSESSMENT: 1. Status post ileostomy reversal. 2. History of recurrent intraabdominal abscess in a patient, ischemic bowel, completed course of antibiotics 1 week prior to admission. 3. Coronary artery disease with coronary artery bypass in November of this year. 4. Ischemic bowel with perforation of right transverse colectomy with ileostomy in November of this year. 5. Persistent atrial fibrillation for which patient has been on Eliquis. 6. Peripheral artery disease. 7. Hypothyroidism. 8. Diabetes mellitus type 2. 9. Low back pain from arthritis. 10.Depression not otherwise specified. 11.Hyperlipidemia. 12.Essential hypertension. 13.Reactive thrombocytosis. MMODL / IJN: [id number] /
--- NOTE | 2018-04-17 00:16 | PN ---
PROGRESS NOTE DATE OF SERVICE: 04/16/2018. PRESENTING COMPLAINT: Ileostomy removal. INTERVAL HISTORY: The patient is status post ileostomy reversal. Epidural was taken out earlier today. The patient has some loose stools. On a liquid diet. Overall feeling much better. Being followed by surgery. Has been out of bed. REVIEW OF SYSTEMS: Done for constitutional, cardiovascular, GI, pulmonary; relevant findings as above. CURRENT MEDICATIONS: Reviewed. PHYSICAL EXAMINATION: Temperature 98.4, pulse 73, respirations 16, blood pressure 165/87, pulse ox 98% on room air. GENERAL APPEARANCE: Lying in bed, comfortable. EYES: Pupils equal. Conjunctivae normal. NECK: JVD not raised. Mass not palpable. Respiratory effort normal. LUNGS: Decreased breath sounds. CARDIOVASCULAR: 1st and 2nd heart sounds. No edema. ABDOMEN: Soft, nontender. Incision wound VAC in place. Bowel sounds are present. PSYCHIATRY: Alert and oriented x3. Mood and affect normal. INVESTIGATIONS: White count 15.9, hemoglobin 10.2, potassium 3.8. ASSESSMENT: 1. Status post ileostomy reversal. 2. History of recurrent intraabdominal abscess in a patient with ischemic bowel, completed course of antibiotic 1 week prior to admission. 3. Coronary artery disease with with coronary bypass in November of this year. 4. Ischemic bowel with perforation right transverse colectomy and ileostomy in November of this year. 5. Persistent atrial fibrillation for which patient is on Eliquis. 6. Peripheral artery disease. 7. Hypothyroidism. 8. Diabetes mellitus type 2. 9. Chronic low back pain from arthritis. 10.Depression, not otherwise specified. 11.Hyperlipidemia. 12.Essential hypertension. 13.Reactive thrombocytosis. PLAN: Patient is tolerating full liquid diet, will be advanced per Surgery. Overall doing much better. Waiting for Surgery to resume Eliquis. Will go ahead and resume the same. Otherwise patient doing rather well. MMODL / IJN: [id number] /
[2018-04-17] MEDS: APIXABAN 5 MG TAB PO SCH ×2 (01:49→08:11)
[2018-04-17] MEDS: ONDANSETRON 4 MG/2 ML VIAL IVP PRN (08:11)
[2018-04-17] MEDS: DULoxetine HCL 60 MG CAPSULE.DR PO SCH (08:11)
[2018-04-17] MEDS: METOPROLOL TARTRATE 25 MG TAB PO SCH ×2 (08:11→20:37)
[2018-04-17] MEDS: D5-0.45% NACL WITH KCL 20MEQ/L 1,000 ML IV SCH ×3 (08:11→23:47)
[2018-04-17] MEDS: FUROSEMIDE 40 MG TAB PO SCH (08:11)
[2018-04-17] MEDS: LOSARTAN 25 MG TAB PO SCH (08:12)
[2018-04-17] MEDS: FAMOTIDINE 20 MG TAB PO SCH ×2 (08:12→20:37)
[2018-04-17] MEDS: AMIODARONE 100 MG TAB PO SCH (08:12)
[2018-04-17] MEDS ORDERED: diphenhydrAMINE 25 MG CAP PO PRN (10:55)
[2018-04-17 11:19] LABS: Anion Gap 12 mmol/L; Blood Urea Nitrogen 2 mg/dL (7-17); Calcium 8.9 mg/dL (8.4-10.2); Carbon Dioxide 24 mmol/L (22-30); Chloride 99 mmol/L (98-107); Glucose 155 mg/dL (74-99); Potassium 3.2 mmol/L (3.5-5.1); Sodium 135 mmol/L (137-145)
[2018-04-17] MEDS: CALCIUM CARBONATE 500 MG CHEWABLE PO PRN (11:40)
--- NOTE | 2018-04-17 18:20 | P.PN ---
Progress Note - Text Progress Note Date: 04/17/18 the patient is resting ccomfortablyry in her bed. there is no significant abdominal pain. On exam her vital signs are able. Abdomen soft nontender.incision site is clean dry intact Patient will continue to have suppohave her diet advanced
[2018-04-17] MEDS: ATORVASTATIN 40 MG TAB PO SCH (20:37)
[2018-04-17] MEDS: LATANOPROST 0.005% OPHTH DROPS 2.5 ML BTL RIGHT EYE SCH (20:38)
--- NOTE | 2018-04-18 06:42 | PN ---
PROGRESS NOTE DATE OF SERVICE: April 17, 2018. PRESENTING COMPLAINT: Ileostomy removed. INTERVAL HISTORY: Patient is status post ileostomy reversal, doing better. On a liquid diet. No abdominal pain. Has been out of bed. REVIEW OF SYSTEMS: Done for constitutional, cardiovascular, GI, pulmonary; relevant findings as above. CURRENT MEDICATIONS: Reviewed. PHYSICAL EXAMINATION: VITAL SIGNS: Temperature 98.6, pulse 89, respirations 16, blood pressure 115/82, pulse ox 92 percent on room air. GENERAL APPEARANCE: Lying in bed, comfortable. EYES: Pupils equal. Conjunctivae normal. NECK: JVD not raised. Mass not palpable. RESPIRATORY: Effort normal. LUNGS: Decreased breath sounds. CARDIOVASCULAR: 1st and 2nd sounds normal. No edema. ABDOMEN: Soft, nontender. Incision wound VAC in place. Bowel sounds present. PSYCHIATRY: Alert and oriented x3. Mood and affect normal. INVESTIGATIONS: Potassium 3.2. ASSESSMENT: 1. Status post ileostomy removal. 2. History of recurrent intraabdominal abscess in a patient with ischemic bowel, completed course of antibiotics 1 week prior to admission. 3. Coronary artery disease with bypass in November of 2017. 4. Ischemic bowel with perforation, right transverse colectomy and ileostomy in November of 2017. 5. Persistent atrial fibrillation for which patient is on Eliquis. 6. Peripheral artery disease. 7. Hypothyroidism. 8. Diabetes mellitus type 2. 9. Chronic low back pain from arthritis. 10.Depression, not otherwise specified. 11.Hyperlipidemia. 12.Essential hypertension. 13.Reactive thrombocytosis. Clinically patient doing much better. The patient remains on a clear liquid diet. Diet will be advanced as per Dr. Montoya. MMODL / IJN: [id number] /
[2018-04-18 10:04] LABS: Anion Gap 7 mmol/L; Blood Urea Nitrogen 4 mg/dL (7-17); Calcium 8.9 mg/dL (8.4-10.2); Carbon Dioxide 26 mmol/L (22-30); Chloride 103 mmol/L (98-107); Glucose 146 mg/dL (74-99); Potassium 3.7 mmol/L (3.5-5.1); Sodium 136 mmol/L (137-145)
[2018-04-18 10:19] LABS: Basophils # (A) 0.1 k/uL (0-0.2); Basophils % (A) 0 %; Eosinophils # (A) 0.8 k/uL (0-0.7); Eosinophils % (A) 6 %; HCT 30.9 % (34.0-46.0); HGB 9.6 gm/dL (11.4-16.0); Hypochromasia Slight; Lymphocytes # (A) 1.3 k/uL (1.0-4.8); Lymphocytes % (A) 10 %; MCH 26.3 pg (25.0-35.0); MCHC 31.2 g/dL (31.0-37.0); MCV 84.3 fL (80.0-100.0); Mean Platelet Volume 6.8; Monocytes # (A) 0.8 k/uL (0-1.0); Monocytes % (A) 6 %; Neutrophils # (A) 10.2 k/uL (1.3-7.7); Neutrophils % (A) 77 %; Platelet Count 519 k/uL (150-450); RBC 3.66 m/uL (3.80-5.40); RDW 14.8 % (11.5-15.5); WBC 13.3 k/uL (3.8-10.6)
[2018-04-18] MEDS: FAMOTIDINE 20 MG TAB PO SCH ×2 (10:58→21:30)
[2018-04-18] MEDS: ONDANSETRON 4 MG/2 ML VIAL IVP PRN (10:58)
[2018-04-18] MEDS: AMIODARONE 100 MG TAB PO SCH (11:00)
[2018-04-18] MEDS: LOSARTAN 25 MG TAB PO SCH (11:00)
[2018-04-18] MEDS: DULoxetine HCL 60 MG CAPSULE.DR PO SCH (11:00)
[2018-04-18] MEDS: APIXABAN 5 MG TAB PO SCH (11:00)
[2018-04-18] MEDS: METOPROLOL TARTRATE 25 MG TAB PO SCH ×2 (11:00→21:30)
[2018-04-18] MEDS: FUROSEMIDE 40 MG TAB PO SCH (11:00)
[2018-04-18] MEDS: D5-0.45% NACL WITH KCL 20MEQ/L 1,000 ML IV SCH ×2 (11:01→17:36)
--- NOTE | 2018-04-18 16:49 | P.PN ---
Progress Note - Text Progress Note Date: 04/18/18 Patient's feels better today. She is not had flatus today. On exam her vital signs are stable. Her abdomen soft. Incision site is clean dry and intact. WBC has decreased to 13,000 today. Status post reversal of ileostomy. Patient will start on full liquid diet.
[2018-04-18] MEDS: ATORVASTATIN 40 MG TAB PO SCH (21:30)
--- NOTE | 2018-04-18 23:09 | PN ---
PROGRESS NOTE DATE OF SERVICE: 04/18/2018. PRESENT COMPLAINT: Ileostomy reversal. INTERVAL HISTORY: Patient is status post ileostomy reversal. Has been on a clear liquid diet. Did not passed any flatus. Abdominal pain is well controlled. No nausea, vomiting. Has been out of bed. REVIEW OF SYSTEMS: Done for constitutional, cardiovascular, GI, pulmonary; relevant findings as above. CURRENT MEDICATIONS: Reviewed, include Eliquis. No antibiotics. PHYSICAL EXAMINATION: Temperature 97.9, pulse 73, respirations 16, blood pressure 105/75, 100% on room air. GENERAL: Lying in bed comfortable. EYES: Pupils equal. Conjunctivae normal. NECK: JVD not raised. Mass not palpable. Respiratory effort normal. LUNGS: Decreased breath sounds. CARDIOVASCULAR: 1st and 2nd heart sounds. No edema. ABDOMEN: Soft, nontender. Incision wound VAC in place. Bowel sounds present. PSYCHIATRY: Alert and oriented x3. Mood and affect normal. INVESTIGATIONS: White count 13.3, potassium 3.7. ASSESSMENT: 1. Ileostomy reversal. 2. History of recurrent intraabdominal abscess in a patient with ischemic bowel. Complete course of antibiotics 1 week prior to admission. 3. Coronary artery bypass coronary bypass in November of 2017. 4. Ischemic bowel with perforation, right transverse colectomy and ileostomy in November of 2017. 5. Persistent atrial fibrillation. Patient is on Eliquis. 6. Peripheral artery disease. 7. Hypothyroidism. 8. Diabetes mellitus type 2. 9. Chronic low back pain from arthritis. 10.Depression, not otherwise specified. 11.Hyperlipidemia. 12.Essential hypertension. 13.Reactive thrombocytosis. PLAN: Patient will be advanced to full liquid diet with Dr. Montoya. Again patient encouraged to be out of bed, which she has started to do. MMODL / IJN: [id number] /
[2018-04-19] MEDS: D5-0.45% NACL WITH KCL 20MEQ/L 1,000 ML IV SCH ×2 (01:46→09:30)
[2018-04-19] MEDS: HYDROcodone/APAP 7.5-325MG 1 EACH TAB PO PRN ×3 (01:46→19:42)
[2018-04-19] MEDS: LATANOPROST 0.005% OPHTH DROPS 2.5 ML BTL RIGHT EYE SCH ×2 (04:47→19:43)
[2018-04-19 08:50] LABS: Anion Gap 6 mmol/L; Blood Urea Nitrogen 2 mg/dL (7-17); Calcium 8.6 mg/dL (8.4-10.2); Carbon Dioxide 26 mmol/L (22-30); Chloride 102 mmol/L (98-107); Glucose 143 mg/dL (74-99); Potassium 3.6 mmol/L (3.5-5.1); Sodium 134 mmol/L (137-145)
[2018-04-19] MEDS: METOCLOPRAMIDE 5 MG/ML 2 ML VIAL IVP PRN (09:27)
[2018-04-19] MEDS: FAMOTIDINE 20 MG TAB PO SCH ×2 (09:30→19:42)
[2018-04-19] MEDS: FUROSEMIDE 40 MG TAB PO SCH (09:30)
[2018-04-19] MEDS: LOSARTAN 25 MG TAB PO SCH (09:30)
[2018-04-19] MEDS: DULoxetine HCL 60 MG CAPSULE.DR PO SCH (09:30)
[2018-04-19] MEDS: APIXABAN 5 MG TAB PO SCH (09:30)
[2018-04-19] MEDS: METOPROLOL TARTRATE 25 MG TAB PO SCH ×2 (09:30→19:42)
[2018-04-19] MEDS: AMIODARONE 100 MG TAB PO SCH (09:30)
--- NOTE | 2018-04-19 14:07 | P.PN ---
Progress Note - Text Progress Note Date: 04/19/18 The patient feels better. She had a bowel movement today. On exam her vital signs are stable. Her abdomen soft. Patient will have her diet increased. We dysphagia discharge home tomorrow.
[2018-04-19] MEDS: ATORVASTATIN 40 MG TAB PO SCH (19:42)
--- NOTE | 2018-04-20 00:16 | PN ---
PROGRESS NOTE DATE OF SERVICE: April 19, 2018. PRESENTING COMPLAINT: Ileostomy. INTERVAL HISTORY: Patient is status post ileostomy reversal. Continues to feel better. Clear liquid diet was advanced this afternoon by Dr. Montoya. The patient does get occasional left- sided abdominal pain. No fever. No chills. Did have a bowel movement. Has been out of bed. Has got a incision wound VAC in place. REVIEW OF SYSTEMS: Done for constitutional, cardiovascular, GI, pulmonary; relevant findings as above. CURRENT MEDICATIONS: Reviewed that include Eliquis. PHYSICAL EXAMINATION: VITAL SIGNS: Temperature 97.5, pulse 80, respiration 16, blood pressure 109/80, pulse ox 100 percent on room air. GENERAL APPEARANCE: Lying in bed comfortable, awake. EYES: Pupils equal. Conjunctivae normal. NECK: JVD not raised. Mass not palpable. RESPIRATORY: Effort lungs decreased breath sounds. Cardiovascular: 1st and 2nd sounds normal. ABDOMEN: Soft, nontender. Incision wound VAC in place. Bowel sounds are present psychiatry alert and oriented x3. Mood and affect normal. INVESTIGATIONS: Potassium 3.6. ASSESSMENT: 1. Ileostomy reversal. 2. History of recurrent intraabdominal abscess in a patient, with ischemic bowel, complete course of antibiotics 1 week. 3. Coronary artery bypass in November of 2017. 4. Ischemic bowel with perforation right transverse colectomy and ileostomy in November of 2017. 5. Persistent atrial fibrillation. The patient is back on Eliquis. 6. Peripheral artery disease. 7. Hypothyroidism. 8. Diabetes mellitus type 2. 9. Chronic low back pain from arthritis. 10.Depression, not otherwise specified. 11.Hyperlipidemia. 12.Essential hypertension. 13.Reactive thrombocytosis. PLAN: Overall continues to do better. Diet is being advanced. Dr. Montoya white count continues to come down. Clinically looking much better in every aspect. Care was discussed with the patient. Thank you Dr. Montoya. MMODL / IJN: [id number] /
[2018-04-20 07:11] LABS: Basophils # (A) 0.1 k/uL (0-0.2); Basophils % (A) 1 %; Eosinophils # (A) 0.8 k/uL (0-0.7); Eosinophils % (A) 5 %; HCT 30.1 % (34.0-46.0); HGB 9.6 gm/dL (11.4-16.0); Lymphocytes # (A) 1.4 k/uL (1.0-4.8); Lymphocytes % (A) 9 %; MCH 26.4 pg (25.0-35.0); MCHC 31.8 g/dL (31.0-37.0); Mean Platelet Volume 6.7; Monocytes # (A) 0.6 k/uL (0-1.0); Monocytes % (A) 4 %; Neutrophils # (A) 12.1 k/uL (1.3-7.7); Neutrophils % (A) 80 %; Platelet Count 528 k/uL (150-450); RBC 3.63 m/uL (3.80-5.40); WBC 15.2 k/uL (3.8-10.6)
[2018-04-20 07:22] LABS: Anion Gap 7 mmol/L; Blood Urea Nitrogen 6 mg/dL (7-17); Calcium 9.1 mg/dL (8.4-10.2); Carbon Dioxide 28 mmol/L (22-30); Chloride 102 mmol/L (98-107); Glucose 131 mg/dL (74-99); Potassium 3.5 mmol/L (3.5-5.1); Sodium 137 mmol/L (137-145)
[2018-04-20] MEDS: ONDANSETRON 4 MG/2 ML VIAL IVP PRN (07:47)
[2018-04-20] MEDS: FUROSEMIDE 40 MG TAB PO SCH (07:49)
[2018-04-20] MEDS: DULoxetine HCL 60 MG CAPSULE.DR PO SCH (07:49)
[2018-04-20] MEDS: APIXABAN 5 MG TAB PO SCH (07:50)
[2018-04-20] MEDS: LOSARTAN 25 MG TAB PO SCH (07:50)
[2018-04-20] MEDS: METOPROLOL TARTRATE 25 MG TAB PO SCH ×2 (07:50→20:48)
[2018-04-20] MEDS: AMIODARONE 100 MG TAB PO SCH (07:50)
[2018-04-20] MEDS: FAMOTIDINE 20 MG TAB PO SCH ×2 (07:50→20:48)
--- NOTE | 2018-04-20 14:01 | P.PN ---
Progress Note - Text Progress Note Date: 04/20/18 The patient resting comfortably in her bed. She denies any significant pain. She has some mild incisional pain. She's had a bowel movement. She feels she is not quite strong enough to go home. On exam her vital signs are stable. Her abdomen soft. Status post reversal of ileostomy. Patient will most likely discharge home tomorrow.
[2018-04-20] MEDS: ATORVASTATIN 40 MG TAB PO SCH (20:48)
[2018-04-20] MEDS: LATANOPROST 0.005% OPHTH DROPS 2.5 ML BTL RIGHT EYE SCH (20:49)
--- NOTE | 2018-04-21 00:50 | PN ---
PROGRESS NOTE DATE OF SERVICE: April 20, 2018. PRESENTING COMPLAINT: Ileostomy reversal. INTERVAL HISTORY: Patient is status post ileostomy reversal, doing well, tolerating a clear liquid diet, had a small bowel movement. No nausea, vomiting, some abdominal pain on and off. No fever. No chills. Overall feels well. REVIEW OF SYSTEMS: Done for constitutional, cardiovascular, GI, pulmonary; relevant findings as above. CURRENT MEDICATIONS: Reviewed. PHYSICAL EXAMINATION: VITAL SIGNS: Temperature 98.5, pulse 97, respiration 16, blood pressure 128/74, pulse ox 94 percent on room air. GENERAL APPEARANCE: Lying in bed comfortable. EYES: Pupils equal. Conjunctivae normal. NECK " JVD not raised. Mass not palpable. RESPIRATORY: Effort normal. LUNGS: Decreased breath sounds. CARDIOVASCULAR: 1st and 2nd sounds. No edema. ABDOMEN: Soft. Mild tenderness. Incision wound VAC in place. Bowel sounds present. PSYCHIATRY: Alert and oriented x3. Mood and affect is normal. INVESTIGATIONS: White count 15.2, potassium 5.5, BUN 6, creatinine 0.53. ASSESSMENT: 1. Ileostomy reversal. 2. History of recurrent intraabdominal abscess in a patient with ischemic bowel, completed course of antibiotic 1 week ago prior to admission. 3. Coronary artery bypass in November of 2017. 4. Ischemic bowel with perforation with right transverse colectomy with ileostomy in November 2017. 5. Persistent atrial fibrillation. Patient is on Eliquis. 6. Peripheral artery disease. 7. Hypothyroidism. 8. Diabetes mellitus type 2. 9. Chronic low back pain from arthritis. 10.Depression, not otherwise specified. 11.Hyperlipidemia. 12.Essential hypertension. 13.Reactive thrombocytosis. PLAN: Patient continues to do well. We will repeat the patient's white count has it has trickled upwards. At this point patient clinically looks well otherwise. MMODL / IJN: [id number] /
[2018-04-21 07:26] LABS: Basophils # (A) 0.1 k/uL (0-0.2); Basophils % (A) 1 %; Eosinophils # (A) 0.8 k/uL (0-0.7); Eosinophils % (A) 6 %; HCT 29.6 % (34.0-46.0); HGB 9.5 gm/dL (11.4-16.0); Lymphocytes # (A) 1.7 k/uL (1.0-4.8); Lymphocytes % (A) 12 %; MCH 26.5 pg (25.0-35.0); MCHC 31.9 g/dL (31.0-37.0); MCV 82.9 fL (80.0-100.0); Mean Platelet Volume 6.8; Monocytes # (A) 0.7 k/uL (0-1.0); Monocytes % (A) 5 %; Neutrophils # (A) 10.2 k/uL (1.3-7.7); Neutrophils % (A) 74 %; Platelet Count 587 k/uL (150-450); RBC 3.57 m/uL (3.80-5.40); RDW 14.9 % (11.5-15.5); WBC 13.8 k/uL (3.8-10.6)
[2018-04-21 07:38] LABS: Anion Gap 8 mmol/L; Blood Urea Nitrogen 8 mg/dL (7-17); Calcium 8.9 mg/dL (8.4-10.2); Carbon Dioxide 29 mmol/L (22-30); Chloride 99 mmol/L (98-107); Glucose 132 mg/dL (74-99); Potassium 3.2 mmol/L (3.5-5.1); Sodium 136 mmol/L (137-145)
[2018-04-21] MEDS ORDERED: ONDANSETRON 4 MG TAB PO PRN (07:49)
[2018-04-21 07:50] VITALS: BP 115/74; PULSE 81; RESP 18; TEMP 98
[2018-04-21] MEDS: FUROSEMIDE 40 MG TAB PO SCH (07:53)
[2018-04-21] MEDS: APIXABAN 5 MG TAB PO SCH (07:54)
[2018-04-21] MEDS: LOSARTAN 25 MG TAB PO SCH (07:54)
[2018-04-21] MEDS: FAMOTIDINE 20 MG TAB PO SCH (07:54)
[2018-04-21] MEDS: METOPROLOL TARTRATE 25 MG TAB PO SCH (07:54)
[2018-04-21] MEDS: DULoxetine HCL 60 MG CAPSULE.DR PO SCH (07:54)
[2018-04-21] MEDS: AMIODARONE 100 MG TAB PO SCH (07:59)
--- NOTE | 2018-04-21 10:03 | P.PN ---
Subjective Progress Note Date: 04/21/18 Principal diagnosis: Ileostomy Patient doing well today. She is anxious to go home today. She is tolerating diet. No nausea or vomiting. Pain well-controlled. Objective - Vital Signs Vital signs: Vital Signs Temp 98 F 04/21/18 07:49 Pulse 81 04/21/18 07:49 Resp 18 04/21/18 07:49 BP 115/74 04/21/18 07:49 Pulse Ox 96 04/21/18 09:18 Intake & Output 04/20/18 04/21/18 04/21/18 18:59 06:59 18:59 Other: Voiding Method Toilet # Voids 5 1 # Bowel Movements 1 - Exam Abdomen: Soft, nondistended, incisions clean and dry, minimal tenderness - Labs CBC & Chem 7: 04/21/18 06:59 04/21/18 06:59 Labs: Abnormal Lab Results - Last 24 Hours (Table) 04/21/18 04/21/18 Range/Units 06:59 06:59 WBC 13.8 H (3.8-10.6) k/uL RBC 3.57 L (3.80-5.40) m/uL Hgb 9.5 L (11.4-16.0) gm/dL Hct 29.6 L (34.0-46.0) % Plt Count 587 H (150-450) k/uL Neutrophils # 10.2 H (1.3-7.7) k/uL Eosinophils # 0.8 H (0-0.7) k/uL Sodium 136 L (137-145) mmol/L Potassium 3.2 L (3.5-5.1) mmol/L Glucose 132 H (74-99) mg/dL Assessment and Plan Plan: May discharge today. Follow-up Dr. Montoya next week. Oral potassium supplementation prior to discharge.
[2018-04-21] MEDS: POTASSIUM CHLORIDE ER 20 MEQ TAB.ER PO SCH ×2 (11:13→11:15)
== END 2018-04-21 12:06 | disposition home or self-care (01) | DRG 330 ==
LOC: 2ORMAIN 08:20 → 4SSUR 14:33
PROVIDERS: ADMIT Surgery; ATTEND Surgery
PROC: 0DNW0ZZ Release Peritoneum, Open Approach (ICD-10-PCS; 2018-04-13)
PROC: 0DBB0ZZ Excision of Ileum, Open Approach (ICD-10-PCS; principal; 2018-04-13 11:00)
DX: Z43.2 Encounter for attention to ileostomy (principal); I48.1 Persistent atrial fibrillation; E11.51 Type 2 diabetes mellitus with diabetic peripheral angiopathy without gangrene; E03.9 Hypothyroidism, unspecified; K66.0 Peritoneal adhesions (postprocedural) (postinfection); E78.5 Hyperlipidemia, unspecified; F32.9 Major depressive disorder, single episode, unspecified; G89.29 Other chronic pain; I10 Essential (primary) hypertension; I25.10 Atherosclerotic heart disease of native coronary artery without angina pectoris; F41.9 Anxiety disorder, unspecified; M47.9 Spondylosis, unspecified; M19.012 Primary osteoarthritis, left shoulder; M19.011 Primary osteoarthritis, right shoulder; Z79.01 Long term (current) use of anticoagulants; Z79.899 Other long term (current) drug therapy; Z87.19 Personal history of other diseases of the digestive system; Z87.440 Personal history of urinary (tract) infections; Z87.891 Personal history of nicotine dependence; Z95.1 Presence of aortocoronary bypass graft; Z96.653 Presence of artificial knee joint, bilateral; Z90.49 Acquired absence of other specified parts of digestive tract; Z80.49 Family history of malignant neoplasm of other genital organs
CPT/HCPCS: 80048; 85025; 86850; 86900; 86901; 88304; 94760

== ENCOUNTER 2018-11-13 16:44 | Emergency (ER) | payer MEDICARE ==
[2018-11-13 17:27] VITALS: RESP 18
[2018-11-13] MEDS ORDERED: DIPH,PERTUS(ACELL)TETVAC-LF 0.5 ML VIAL IM ONE (19:00)
[2018-11-13] MEDS ORDERED: LIDOCAINE 1% INJ 10MG/ML (20 ML MDV) SQ ONE (19:00)
[2018-11-13] MEDS ORDERED: SULFAMETH-TMP DS STARTER PACK 2 TAB BTL PO STA (20:08)
--- NOTE | 2018-11-13 20:09 | ED ---
General Adult HPI - General Chief complaint: Wound/Laceration Stated complaint: Fell leg laceration Time Seen by Provider: 11/13/18 18:14 Source: patient, RN notes reviewed Mode of arrival: wheelchair Limitations: no limitations - History of Present Illness Initial comments: 73-year-old female presents to the emergency department for a chief complaint of laceration to the right knee 18 hours. Patient states she tripped over a curb yesterday and fell onto her right knee. States she did cut her knee open. States she put bandages on and covered it up but it would not stop bleeding. Today she went to urgent care and they referred her to the emergency department for repair. Patient denies any other injuries. Denies hitting her head. Patient denies any pain with walking. Patient does admit to having a knee replacement on that knee several years ago and states the artery was injured so she has decreased blood flow to that leg which is normal for her.Patient has no other complaints at this time including shortness of breath, chest pain, abdominal pain, nausea or vomiting, headache, or visual changes. - Related Data Home Medications Medication Instructions Recorded Confirmed DULoxetine HCL [Cymbalta] 60 mg PO DAILY 12/14/16 04/13/18 Ergocalciferol (Vitamin D2) 50,000 unit PO TU@1700 12/14/16 04/13/18 [Vitamin D2] Atorvastatin [Lipitor] 40 mg PO HS 01/24/18 04/13/18 Amiodarone [Cordarone] 100 mg PO DAILY 03/02/18 04/13/18 Apixaban [Eliquis] 5 mg PO DAILY 03/02/18 04/13/18 Ensure Clear 237 ml PO TID 03/02/18 04/13/18 Furosemide [Lasix] 40 mg PO DAILY 03/02/18 04/13/18 Latanoprost/Pf [Latanoprost 0.005% 1 drop RIGHT EYE HS@2100 03/02/18 04/13/18 Eye Drop] Metoprolol Tartrate [Lopressor] 25 mg PO BID 03/02/18 04/13/18 Ondansetron [Zofran] 4 mg PO Q6H PRN 03/02/18 04/13/18 Potassium Chloride [Klor-Con M15] 15 meq PO DAILY 03/02/18 04/13/18 oxyCODONE HCL [oxyCODONE HCL (IR)] 20 mg PO TID 03/02/18 04/13/18 Losartan Potassium [Cozaar] 25 mg PO DAILY 04/11/18 04/13/18 Previous Rx's Medication Instructions Recorded Calcium Carbonate [Tums] 500 mg PO QID PRN chew 01/09/18 Sulfamethox-Tmp 800-160Mg [Bactrim 1 tab PO Q12HR #20 tab 11/13/18 DS 800-160 mg] Allergies Allergy/AdvReac Type Severity Reaction Status Date / Time No Known Allergies Allergy Verified 04/13/18 10:35 Review of Systems ROS Statement: Those systems with pertinent positive or pertinent negative responses have been documented in the HPI. ROS Other: All systems not noted in ROS Statement are negative. Past Medical History Past Medical History: Atrial Fibrillation, Coronary Artery Disease (CAD), Diabetes Mellitus, Hyperlipidemia, Hypertension, Osteoarthritis (OA), Thyroid Disorder, Vascular Disorder Additional Past Medical History / Comment(s): Pt. states poor circulation in RLE due to an artificial bypass. past fall, Chronic back pain, bilateral shoulder problems djd has difficulty with rom.past uti-ecoli, per pt "blood clots to diaphraghm putting 3 holes in diaphragm" History of Any Multi-Drug Resistant Organisms: ESBL Date of last positivie culture/infection: 03/04/18 MDRO Source:: BODY FLUID ASPIRATE Past Surgical History: Appendectomy, Bowel Resection, Breast Surgery, Cholecystectomy, Coronary Bypass/CABG, Heart Catheterization, Orthopedic Surgery Additional Past Surgical History / Comment(s): "rt leg sx"artificial artery". Bilateral knee replacements. 2016-rt rotator cuff, Left breast surgery for benign tumor. Epidurals to lower back. heart cath 12-08-17, quad cabg 12-11-17, 12/20/17 colectomy/ileostomy- colostomy and reversal, picc line since removed. Past Anesthesia/Blood Transfusion Reactions: No Reported Reaction Past Psychological History: Anxiety, Depression Smoking Status: Former smoker Past Alcohol Use History: Rare Past Drug Use History: None Reported - Past Family History Mother Family Medical History: Cancer Additional Family Medical History / Comment(s): Uterine cancer. General Exam Limitations: no limitations General appearance: alert, in no apparent distress Head exam: Present: atraumatic, normocephalic, normal inspection Eye exam: Present: normal appearance, PERRL, EOMI. Absent: scleral icterus, conjunctival injection, periorbital swelling ENT exam: Present: normal exam, mucous membranes moist Neck exam: Present: normal inspection, full ROM. Absent: tenderness, meningismus, lymphadenopathy Respiratory exam: Present: normal lung sounds bilaterally. Absent: respiratory distress, wheezes, rales, rhonchi, stridor Cardiovascular Exam: Present: regular rate, normal rhythm, normal heart sounds. Absent: systolic murmur, diastolic murmur, rubs, gallop, clicks Extremities exam: Present: full ROM (Full range of motion noted of the right knee.), normal capillary refill ([place]y refill less than 2 seconds to the right lower extremity.), other (David Clementine on the right knee. There is a 7 cm laceration noted to the anterior aspect of the right knee). Absent: joint swelling (No edema or erythema noted of the right knee.) Course Vital Signs 11/13/18 17:24 Temperature 97.4 F L Pulse Rate 88 Respiratory 18 Rate Blood Pressure 121/81 O2 Sat by Pulse 96 Oximetry Procedures - Laceration Laceration #1 Consent Obtained: verbal consent Indication: laceration Site: lower extremity Size (cm): 7 Description: stellate Depth: simple, single layer Anesthetic Used: lidocaine 1% Anesthesia Technique: local infiltration Amount (mls): 10 Pre-repair: wound explored, irrigated extensively (With 2 L of normal male saline and saline pressure irrigation) Type of Sutures: other (Ethilon) Size of Sutures: 4-0 Number of Sutures: 16 Technique: simple, interrupted (16), horizontal mattress (1) Patient Tolerated Procedure: well, no complications Medical Decision Making - Medical Decision Making 73-year-old female presents to the emergency department for a chief of laceration of the right knee 18 hours. Patient fell 18 hours ago and cut her right knee. She had a trip and fall that was purely mechanical. No lightheadedness preceding this fall. No other injuries besides laceration to the right knee, did not hit her head. On exam patient has full range motion of the right knee however there is a 7 cm laceration through the anterior aspect of the right knee. Capillary refill less than 2 seconds. The wound was cleaned thoroughly with 2 L of normal saline. All do wound was open for 18 hours the wound is gaping and does have to be closed. I then sutured using 16 sutures. Tetanus updated. Discussed risk of infection with this injury given the patient has had wound open for 18 hours and adequate diminished arterial flow to that leg. Discussed knee prosthesis and the importance of monitoring very closely for any infection. Discussed following up with primary care in 2 days for a wound recheck. Discussed antibiotic usage to prevent infection. Discussed returning here if she has any worsening symptoms. Disposition Clinical Impression: Laceration Disposition: HOME SELF-CARE Condition: Good Instructions (If sedation given, give patient instructions): Laceration (ED), Care For Your Stitches (ED) Additional Instructions: Please keep area clean. Monitor for signs of infection such as spreading or streaking redness, drainage or fever. Try not to bend to the right knee significantly. Follow-up with primary care in 1-2 days. Return to the emergency department if you have any worsening symptoms. Prescriptions: Sulfamethox-Tmp 800-160Mg [Bactrim DS 800-160 mg] 1 tab PO Q12HR #20 tab Is patient prescribed a controlled substance at d/c from ED?: No Referrals: Diaz Alcala DO [Primary Care Provider] - 1-2 days Time of Disposition: 20:07
[2018-11-13 20:30] VITALS: BP 122/66; PULSE 86; TEMP 98.6
== END 2018-11-13 20:30 | disposition home or self-care (01) ==
LOC: EC 16:44
DX: S81.011A Laceration without foreign body, right knee, initial encounter (principal); I48.91 Unspecified atrial fibrillation; I25.10 Atherosclerotic heart disease of native coronary artery without angina pectoris; E78.5 Hyperlipidemia, unspecified; I10 Essential (primary) hypertension; M19.90 Unspecified osteoarthritis, unspecified site; F32.9 Major depressive disorder, single episode, unspecified; F41.9 Anxiety disorder, unspecified; Z87.891 Personal history of nicotine dependence; Z79.01 Long term (current) use of anticoagulants; Z79.891 Long term (current) use of opiate analgesic; Z79.899 Other long term (current) drug therapy; Z95.1 Presence of aortocoronary bypass graft; Z96.653 Presence of artificial knee joint, bilateral; Z23 Encounter for immunization; W01.0XXA Fall on same level from slipping, tripping and stumbling without subsequent striking against object, initial encounter
CPT/HCPCS: 90715; 99282; 12002; 90471; J2001

== ENCOUNTER 2018-11-15 15:03 | Inpatient (IN) | payer MEDICARE ==
[2018-11-15] MEDS ORDERED: ONDANSETRON 4 MG/2 ML VIAL IVP STA (16:18)
[2018-11-15] MEDS ORDERED: SODIUM CHLORIDE 0.9% 1,000 ML IV STA (16:18)
--- NOTE | 2018-11-15 16:18 | ED ---
General Adult HPI - General Chief complaint: Nausea/Vomiting/Diarrhea Stated complaint: vomiting 3 days Time Seen by Provider: 11/15/18 15:55 Source: patient, RN notes reviewed Mode of arrival: ambulatory Limitations: no limitations - History of Present Illness Initial comments: 73-year-old female with a past medical history of atrial fibrillation, CAD, NIDDM, hyperlipidemia, hypertension, thyroid disorder presents to the emergency room for a chief complaint of nausea vomiting and weakness. Patient states she has had nausea for the past 5 days and has had vomiting for the past 3 days. States that her blood sugars have been in the 200s-300s. States that she recently restarted metformin this week but is not sure which day. He had septate uterus in the past due to uncontrolled blood sugar. Patient is denying any abdominal pain. Denies any chest pain or shortness of breath. Denies any diarrhea. Does admit to increased weakness and she is more tired than normal. States she is not drinking or eating she does not have an appetite. States she is also not keeping much down at home.Patient has no other complaints at this time including shortness of breath, chest pain, abdominal pain, headache, or visual changes. - Related Data Home Medications Medication Instructions Recorded Confirmed DULoxetine HCL [Cymbalta] 60 mg PO BID 12/14/16 11/15/18 Ergocalciferol (Vitamin D2) 50,000 unit PO TUFR 12/14/16 11/15/18 [Vitamin D2] Atorvastatin [Lipitor] 40 mg PO HS 01/24/18 11/15/18 Amiodarone [Cordarone] 100 mg PO DAILY 03/02/18 11/15/18 Apixaban [Eliquis] 5 mg PO BID 03/02/18 11/15/18 Furosemide [Lasix] 40 mg PO DAILY 03/02/18 11/15/18 Latanoprost/Pf [Latanoprost 0.005% 1 drop BOTH EYES HS 03/02/18 11/15/18 Eye Drop] Cilostazol [Pletal] 100 mg PO DAILY 11/15/18 11/15/18 Ipratropium-Albuterol Nebulize 3 ml INHALATION RT-QID 11/15/18 11/15/18 [Duoneb 0.5 mg-3 mg/3 ml Soln] Levothyroxine Sodium [Tirosint] 88 mcg PO DAILY 11/15/18 11/15/18 Losartan Potassium 100 mg PO DAILY 11/15/18 11/15/18 Metoprolol Tartrate [Lopressor] 50 mg PO BID 11/15/18 11/15/18 Potassium Chloride ER [K-Dur 20] 20 meq PO DAILY 11/15/18 11/15/18 Repaglinide [Prandin] 0.5 mg PO AC-TID 11/15/18 11/15/18 amLODIPine [Norvasc] 10 mg PO DAILY 11/15/18 11/15/18 metFORMIN HCL [Glucophage] 1,000 mg PO DAILY 11/15/18 11/15/18 metFORMIN HCL [Glucophage] 500 mg PO HS 11/15/18 11/15/18 oxyCODONE ER [OxyCONTIN] 20 mg PO TID 11/15/18 11/15/18 predniSONE 5 mg PO DAILY 11/15/18 11/15/18 Allergies Allergy/AdvReac Type Severity Reaction Status Date / Time No Known Allergies Allergy Verified 11/15/18 16:24 Review of Systems ROS Statement: Those systems with pertinent positive or pertinent negative responses have been documented in the HPI. ROS Other: All systems not noted in ROS Statement are negative. Past Medical History Past Medical History: Atrial Fibrillation, Coronary Artery Disease (CAD), Diabetes Mellitus, Hyperlipidemia, Hypertension, Osteoarthritis (OA), Thyroid Disorder, Vascular Disorder Additional Past Medical History / Comment(s): Pt. states poor circulation in RLE due to an artificial bypass. past fall, Chronic back pain, bilateral shoulder problems djd has difficulty with rom.past uti-ecoli, per pt "blood clots to diaphraghm putting 3 holes in diaphragm" History of Any Multi-Drug Resistant Organisms: ESBL Date of last positivie culture/infection: 03/04/18 MDRO Source:: BODY FLUID ASPIRATE Past Surgical History: Appendectomy, Bowel Resection, Breast Surgery, Cholecystectomy, Coronary Bypass/CABG, Heart Catheterization, Orthopedic Surgery Additional Past Surgical History / Comment(s): "rt leg sx"artificial artery". Bilateral knee replacements. 2016-rt rotator cuff, Left breast surgery for benign tumor. Epidurals to lower back. heart cath 12-08-17, quad cabg 12-11-17, 12/20/17 colectomy/ileostomy- colostomy and reversal, picc line since removed. Past Anesthesia/Blood Transfusion Reactions: No Reported Reaction Past Psychological History: Anxiety, Depression Smoking Status: Former smoker Past Alcohol Use History: Rare Past Drug Use History: None Reported - Past Family History Mother Family Medical History: Cancer Additional Family Medical History / Comment(s): Uterine cancer. General Exam Limitations: no limitations General appearance: alert, in no apparent distress Head exam: Present: atraumatic, normocephalic, normal inspection Eye exam: Present: normal appearance. Absent: PERRL, EOMI, scleral icterus, conjunctival injection ENT exam: Present: normal exam, mucous membranes moist Neck exam: Present: normal inspection, full ROM. Absent: tenderness, meningismus, lymphadenopathy Respiratory exam: Present: normal lung sounds bilaterally. Absent: respiratory distress, wheezes, rales, rhonchi, stridor Cardiovascular Exam: Present: regular rate, normal rhythm, normal heart sounds. Absent: systolic murmur, diastolic murmur, rubs, gallop, clicks GI/Abdominal exam: Present: soft, normal bowel sounds. Absent: distended, tenderness, guarding, rebound, rigid Neurological exam: Present: alert, oriented X3, CN II-XII intact Psychiatric exam: Present: normal affect, normal mood Course Vital Signs 11/15/18 11/15/18 15:46 17:53 Temperature 97.8 F Pulse Rate 87 Respiratory 18 16 Rate Blood Pressure 104/74 O2 Sat by Pulse 100 Oximetry EKG Findings - EKG Comments: EKG Findings:: Normal sinus rhythm, ventricular rate 83, [place] interval 150, QTC 73 Medical Decision Making - Medical Decision Making 73-year-old female with a past medical history of atrial fibrillation, CAD, NIDDM, hyperlipidemia, hypertension presents for nausea vomiting and weakness. This has been ongoing for about 5 days. Patient has a strong cardiac history but is denying any chest pain or shortness of breath at this time. EKG does show normal sinus rhythm however prolonged QT noted. This was evident on past EKG as well. CBC shows a white count 15.8, likely reactive to vomiting. Patient does appear dehydrated as well and is likely hemoconcentrated with a platelet count of 537. CMP shows a sodium of 131, replaced with fluids ulcer likely secondary to dehydration. Magnesium 1.6, given 1 g. Lactic acid of 2.2 likely secondary to dehydration as well as chest x-ray and urine are negative for infection. Abdomen is nontender. Troponin mildly elevated. This could be an injury to dehydration as patient has been vomiting for several days however given strong cardiac history including quadruple bypass in November patient will be started on heparin. - Lab Data Result diagrams: 11/15/18 16:40 11/15/18 16:40 Lab Results 11/15/18 11/15/18 11/15/18 Range/Units 16:40 16:40 16:40 WBC 15.8 H (3.8-10.6) k/uL RBC 4.40 (3.80-5.40) m/uL Hgb 11.3 L (11.4-16.0) gm/dL Hct 34.6 (34.0-46.0) % MCV 78.7 L (80.0-100.0) fL MCH 25.7 (25.0-35.0) pg MCHC 32.7 (31.0-37.0) g/dL RDW 15.4 (11.5-15.5) % Plt Count 537 H (150-450) k/uL Neutrophils % 84 % Lymphocytes % 8 % Monocytes % 5 % Eosinophils % 1 % Basophils % 0 % Neutrophils # 13.3 H (1.3-7.7) k/uL Lymphocytes # 1.3 (1.0-4.8) k/uL Monocytes # 0.8 (0-1.0) k/uL Eosinophils # 0.2 (0-0.7) k/uL Basophils # 0.1 (0-0.2) k/uL Microcytosis Slight Sodium 131 L (137-145) mmol/L Potassium 3.5 (3.5-5.1) mmol/L Chloride 92 L (98-107) mmol/L Carbon Dioxide 28 (22-30) mmol/L Anion Gap 11 mmol/L BUN 9 (7-17) mg/dL Creatinine 0.73 (0.52-1.04) mg/dL Est GFR (CKD-EPI)AfAm >90 (>60 ml/min/1.73 sqM) Est GFR (CKD-EPI)NonAf 83 (>60 ml/min/1.73 sqM) Glucose 177 H (74-99) mg/dL Plasma Lactic Acid [place] (0.7-2.0) mmol/L Calcium 10.0 (8.4-10.2) mg/dL Magnesium (1.6-2.3) mg/dL Total Bilirubin 0.6 (0.2-1.3) mg/dL AST 34 (14-36) U/L ALT 25 (9-52) U/L Alkaline Phosphatase 156 H (38-126) U/L Troponin I 0.038 H* (0.000-0.034) ng/mL Total Protein 6.4 (6.3-8.2) g/dL Albumin 3.8 (3.5-5.0) g/dL Amylase 40 (30-110) U/L Lipase 91 (23-300) U/L TSH (0.465-4.680) mIU/L Urine Color Urine Appearance (Clear) Urine pH (5.0-8.0) Ur Specific [place] (1.001-1.035) Urine Protein (Negative) Urine Glucose (UA) (Negative) Urine Ketones (Negative) Urine Blood (Negative) Urine Nitrite (Negative) Urine Bilirubin (Negative) Urine Urobilinogen (<2.0) mg/dL Ur Leukocyte Esterase (Negative) 11/15/18 11/15/18 11/15/18 Range/Units 16:40 16:40 17:25 WBC (3.8-10.6) k/uL RBC (3.80-5.40) m/uL Hgb (11.4-16.0) gm/dL Hct (34.0-46.0) % MCV (80.0-100.0) fL MCH (25.0-35.0) pg MCHC (31.0-37.0) g/dL RDW (11.5-15.5) % Plt Count (150-450) k/uL Neutrophils % % Lymphocytes % % Monocytes % % Eosinophils % % Basophils % % Neutrophils # (1.3-7.7) k/uL Lymphocytes # (1.0-4.8) k/uL Monocytes # (0-1.0) k/uL Eosinophils # (0-0.7) k/uL Basophils # (0-0.2) k/uL Microcytosis Sodium (137-145) mmol/L Potassium (3.5-5.1) mmol/L Chloride (98-107) mmol/L Carbon Dioxide (22-30) mmol/L Anion Gap mmol/L BUN (7-17) mg/dL Creatinine (0.52-1.04) mg/dL Est GFR (CKD-EPI)AfAm (>60 ml/min/1.73 sqM) Est GFR (CKD-EPI)NonAf (>60 ml/min/1.73 sqM) Glucose (74-99) mg/dL Plasma Lactic Acid [place] 2.2 H* (0.7-2.0) mmol/L Calcium (8.4-10.2) mg/dL Magnesium 1.6 (1.6-2.3) mg/dL Total Bilirubin (0.2-1.3) mg/dL AST (14-36) U/L ALT (9-52) U/L Alkaline Phosphatase (38-126) U/L Troponin I (0.000-0.034) ng/mL Total Protein (6.3-8.2) g/dL Albumin (3.5-5.0) g/dL Amylase (30-110) U/L Lipase (23-300) U/L TSH 1.850 (0.465-4.680) mIU/L Urine Color Urine Appearance (Clear) Urine pH (5.0-8.0) Ur Specific [place] (1.001-1.035) Urine Protein (Negative) Urine Glucose (UA) (Negative) Urine Ketones (Negative) Urine Blood (Negative) Urine Nitrite (Negative) Urine Bilirubin (Negative) Urine Urobilinogen (<2.0) mg/dL Ur Leukocyte Esterase (Negative) 11/15/18 Range/Units 17:50 WBC (3.8-10.6) k/uL RBC (3.80-5.40) m/uL Hgb (11.4-16.0) gm/dL Hct (34.0-46.0) % MCV (80.0-100.0) fL MCH (25.0-35.0) pg MCHC (31.0-37.0) g/dL RDW (11.5-15.5) % Plt Count (150-450) k/uL Neutrophils % % Lymphocytes % % Monocytes % % Eosinophils % % Basophils % % Neutrophils # (1.3-7.7) k/uL Lymphocytes # (1.0-4.8) k/uL Monocytes # (0-1.0) k/uL Eosinophils # (0-0.7) k/uL Basophils # (0-0.2) k/uL Microcytosis Sodium (137-145) mmol/L Potassium (3.5-5.1) mmol/L Chloride (98-107) mmol/L Carbon Dioxide (22-30) mmol/L Anion Gap mmol/L BUN (7-17) mg/dL Creatinine (0.52-1.04) mg/dL Est GFR (CKD-EPI)AfAm (>60 ml/min/1.73 sqM) Est GFR (CKD-EPI)NonAf (>60 ml/min/1.73 sqM) Glucose (74-99) mg/dL Plasma Lactic Acid Frederick (0.7-2.0) mmol/L Calcium (8.4-10.2) mg/dL Magnesium (1.6-2.3) mg/dL Total Bilirubin (0.2-1.3) mg/dL AST (14-36) U/L ALT (9-52) U/L Alkaline Phosphatase (38-126) U/L Troponin I (0.000-0.034) ng/mL Total Protein (6.3-8.2) g/dL Albumin (3.5-5.0) g/dL Amylase (30-110) U/L Lipase (23-300) U/L TSH (0.465-4.680) mIU/L Urine Color Light Yellow Urine Appearance Clear (Clear) Urine pH 7.0 (5.0-8.0) Ur Specific [place] 1.005 (1.001-1.035) Urine Protein Negative (Negative) Urine Glucose (UA) Negative (Negative) Urine Ketones Negative (Negative) Urine Blood Negative (Negative) Urine Nitrite Negative (Negative) Urine Bilirubin Negative (Negative) Urine Urobilinogen <2.0 (<2.0) mg/dL Ur Leukocyte Esterase Negative (Negative) Disposition Clinical Impression: Weakness, Nausea and vomiting, Hyponatremia, Elevated troponin Disposition: ADMITTED IP TO THIS [facility] Condition: Fair Is patient prescribed a controlled substance at d/c from ED?: No Referrals: Diaz Alcala DO [Primary Care Provider] - 1-2 days Time of Disposition: 19:01
[2018-11-15 16:54] LABS: Basophils # (A) 0.1 k/uL (0-0.2); Basophils % (A) 0 %; Eosinophils # (A) 0.2 k/uL (0-0.7); Eosinophils % (A) 1 %; HCT 34.6 % (34.0-46.0); HGB 11.3 gm/dL (11.4-16.0); Lymphocytes # (A) 1.3 k/uL (1.0-4.8); Lymphocytes % (A) 8 %; MCH 25.7 pg (25.0-35.0); MCHC 32.7 g/dL (31.0-37.0); MCV 78.7 fL (80.0-100.0); Microcytosis Slight; Monocytes # (A) 0.8 k/uL (0-1.0); Monocytes % (A) 5 %; Neutrophils # (A) 13.3 k/uL (1.3-7.7); Neutrophils % (A) 84 %; Platelet Count 537 k/uL (150-450); RDW 15.4 % (11.5-15.5); WBC 15.8 k/uL (3.8-10.6)
--- NOTE | 2018-11-15 17:01 | XR ---
EXAMINATION TYPE: XR chest 2V DATE OF EXAM: 11/15/2018 COMPARISON: 03/02/2018 HISTORY: Vomiting TECHNIQUE: Frontal and lateral views of the chest are obtained. FINDINGS: Heart and mediastinum are normal. Lungs are clear. There are sternal wires. There is moder ate arthritic disease in the shoulder joints. There is no pleural effusion. Bony thorax is intact. IMPRESSION: No active cardiopulmonary disease. Normal heart. No change.
[2018-11-15 17:17] LABS: ALT 25 U/L (9-52); AST 34 U/L (14-36); African American GFR (CKD) >90 (>60 ml/min/1.73 sqM); Albumin 3.8 g/dL (3.5-5.0); Alkaline Phosphatase 156 U/L (38-126); Amylase 40 U/L (30-110); Anion Gap 11 mmol/L; Blood Urea Nitrogen 9 mg/dL (7-17); Carbon Dioxide 28 mmol/L (22-30); Chloride 92 mmol/L (98-107); Glucose 177 mg/dL (74-99); Lipase 91 U/L (23-300); Potassium 3.5 mmol/L (3.5-5.1); Sodium 131 mmol/L (137-145); Total Bilirubin 0.6 mg/dL (0.2-1.3); Total Protein 6.4 g/dL (6.3-8.2)
[2018-11-15] MEDS ORDERED: ASPIRIN 81 MG PO STA (17:54)
[2018-11-15 18:00] LABS: Appearance,Urine Clear (Clear); Bilirubin,Urine Negative (Negative); Blood,Urine Negative (Negative); Color,Urine Light Yellow; Glucose,Urine (UA) Negative (Negative); Ketones,Urine Negative (Negative); Leukocyte Esterase,Urine Negative (Negative); Nitrite,Urine Negative (Negative); Protein,Urine Negative (Negative); Specific Gravity,Urine 1.005 (1.001-1.035); Urobilinogen,Urine <2.0 mg/dL (<2.0)
[2018-11-15] MEDS ORDERED: HEPARIN SODIUM,PORCINE 5,000 UNIT/ML 1 ML VIAL IV ONE (18:40)
[2018-11-15] MEDS ORDERED: NITROGLYCERIN SL TABS 0.4 MG TAB SUBLINGUAL PRN (18:40)
[2018-11-15] MEDS ORDERED: HEPARIN SOD,PORK IN 0.45% NACL 25,000 UNIT in 0.45% NACL 1 250ML.BAG IV SCH (18:45)
[2018-11-15] MEDS ORDERED: MAGNESIUM SULFATE-D5W PMX 1 GM in DEXTROSE/WATER 1 100ML.BAG IVPB ONE (18:56)
[2018-11-15 23:44] LABS: Glucose,Whole Blood 171 mg/dL (75-99)
[2018-11-16 00:46] VITALS: BMI 32.8
[2018-11-16] MEDS ORDERED: ERGOCALCIFEROL 50,000 UNIT CAP PO SCH ×2 (02:00→09:00)
[2018-11-16 05:26] LABS: Basophils # (A) 0.1 k/uL (0-0.2); Basophils % (A) 1 %; Eosinophils # (A) 0.4 k/uL (0-0.7); Eosinophils % (A) 3 %; Hypochromasia Moderate; Lymphocytes # (A) 2.2 k/uL (1.0-4.8); Lymphocytes % (A) 20 %; MCH 25.4 pg (25.0-35.0); MCHC 31.9 g/dL (31.0-37.0); MCV 79.7 fL (80.0-100.0); Mean Platelet Volume 7.5; Monocytes # (A) 0.7 k/uL (0-1.0); Monocytes % (A) 6 %; Neutrophils # (A) 7.4 k/uL (1.3-7.7); Neutrophils % (A) 68 %; Platelet Count 434 k/uL (150-450); RBC 3.76 m/uL (3.80-5.40); RDW 15.2 % (11.5-15.5)
[2018-11-16 05:29] LABS: HGB 9.6 gm/dL (11.4-16.0)
[2018-11-16 05:39] LABS: Magnesium 1.9 mg/dL (1.6-2.3); Potassium 2.9 mmol/L (3.5-5.1)
[2018-11-16] MEDS ORDERED: Potassium Replacement Protocol 1 EACH MISC MISCELLANE PRN (06:27)
[2018-11-16 07:10] LABS: Glucose,Whole Blood 182 mg/dL (75-99)
[2018-11-16] MEDS: REPAGLINIDE 1 MG TAB PO SCH ×3 (07:53→17:09)
[2018-11-16] MEDS: POTASSIUM CHLORIDE ER 20 MEQ TAB.ER PO SCH ×4 (07:54→10:50)
[2018-11-16] MEDS: INSULIN ASPART (NovoLOG) 100 UNIT/ML VIAL SQ SCH ×4 (07:57→21:52)
[2018-11-16] MEDS: LEVOTHYROXINE 88 MCG TAB PO SCH (07:57)
[2018-11-16] MEDS ORDERED: HEPARIN SODIUM,PORCINE 5,000 UNIT/ML 1 ML VIAL IV STA (08:14)
[2018-11-16] MEDS: oxyCODONE ER 20 MG TAB.ER.12H PO SCH ×3 (08:26→21:38)
[2018-11-16] MEDS: CILOSTAZOL 100 MG TAB PO SCH (08:38)
[2018-11-16] MEDS: METOPROLOL TARTRATE 50 MG TAB PO SCH ×2 (08:39→21:51)
[2018-11-16] MEDS: AMIODARONE 100 MG TAB PO SCH (08:39)
[2018-11-16] MEDS: amLODIPine 10 MG TAB PO SCH (08:40)
[2018-11-16] MEDS: predniSONE 5 MG TAB PO SCH (08:40)
[2018-11-16] MEDS: LOSARTAN 50 MG TAB PO SCH (08:40)
[2018-11-16] MEDS: ASPIRIN 325 MG TAB PO SCH (08:41)
[2018-11-16] MEDS: MAGNESIUM SULFATE-D5W PMX 1 GM in DEXTROSE/WATER 1 100ML.BAG IVPB SCH ×2 (08:41→10:53)
[2018-11-16] MEDS: DULoxetine HCL 60 MG CAPSULE.DR PO SCH ×2 (08:52→21:36)
[2018-11-16] MEDS: metFORMIN 500 MG TAB PO SCH (08:52)
[2018-11-16] MEDS ORDERED: FUROSEMIDE 40 MG TAB PO SCH (09:00)
[2018-11-16] MEDS ORDERED: metFORMIN 500 MG TAB PO SCH ×3 (10:00→21:00)
[2018-11-16] MEDS ORDERED: AMIODARONE 100 MG TAB PO SCH (10:00)
[2018-11-16] MEDS ORDERED: CILOSTAZOL 100 MG TAB PO SCH (10:00)
[2018-11-16] MEDS ORDERED: LEVOTHYROXINE SODIUM 88 MCG PO SCH (10:00)
[2018-11-16] MEDS: APIXABAN 5 MG TAB PO SCH ×2 (10:53→21:36)
[2018-11-16 12:22] LABS: Glucose,Whole Blood 132 mg/dL (75-99)
[2018-11-16] MEDS: IPRATROPIUM-ALBUTEROL 3 ML NEB INHALATION SCH ×3 (12:23→19:27)
[2018-11-16] MEDS ORDERED: INSULIN ASPART (NovoLOG) 100 UNIT/ML VIAL SQ SCH (12:30)
--- NOTE | 2018-11-16 14:28 | P.CRDCN ---
History of Present Illness History of present illness: This is Lisa Small PA-C dictating a consult on this patient The patient was interviewed and examined by me as well as by Dr. Tejeda Case discussed with Dr. Tejeda and he agrees with the plan of care IMPRESSION / ASSESSMENT: Elevated troponins, patient denies any symptoms chest discomfort or shortness of breath, likely type II related to dehydration CAD status post CABG Paroxysmal atrial fibrillation, on anticoagulation Dyslipidemia Hypertension Diabetes Hypothyroidism PLAN: Discontinue heparin Continue home cardiac medications including anticoagulation with eliquis Repeat EKG tomorrow HPI Patient is a 73-year-old female with a past medical history of paroxysmal atrial fibrillation, CAD status post CABG, diabetes, dyslipidemia, hypertension, hypothyroidism who presented with a complaints of nausea and vomiting and weakness. She has been nauseated and vomiting for the last few days. Feels very weak. Has also been fatigued and sleeping a lot. Denies any chest pain, palpitations, shortness of breath, dizziness, syncope. She went saw her primary care doctor and her blood sugar was elevated in the 400s. Seen and examined resting comfortably in bed. She is starting to feel better. Was able to tolerate her breakfast this morning. No more nausea and vomiting. She was able to get up and use the bathroom. She felt a little bit weak but other than that denies any chest pain, shortness of breath, dizziness, palpitations, syncope. ROS: No fevers, chills or rigors, no cough, phlegm or expectoration, positive nausea, vomiting no hematuria, dysuria, no musculoskeletal complaints, no strokes or seizures, no skin lesions. EXAMINATION: Temperature 97.7F, pulse 77, respirations 18, blood pressure 133/71, oxygen saturation 99% on room air Patient seen and examined resting comfortably in bed, in no acute distress Lungs are clear to auscultation bilaterally, no wheezing, rhonchi, or crackles Heart is regular rate and rhythm, S1-S2, no murmurs appreciated No lower extremity edema REVIEW OF LABS, ECG & MEDICAL DATA EKG shows sinus rhythm, T-wave notching noted in V6 Chest x-ray shows no acute process Troponin 0.44, 0.37 Potassium 2.9, BUN 9, creatinine 0.86 Past Medical History Past Medical History: Atrial Fibrillation, Coronary Artery Disease (CAD), Diabetes Mellitus, Hyperlipidemia, Hypertension, Osteoarthritis (OA), Thyroid Disorder, Vascular Disorder Additional Past Medical History / Comment(s): Pt. states poor circulation in RLE due to an artificial bypass. past fall, Chronic back pain, bilateral shoulder problems djd has difficulty with rom.past uti-ecoli, per pt "blood clots to diaphraghm putting 3 holes in diaphragm" History of Any Multi-Drug Resistant Organisms: ESBL Date of last positivie culture/infection: 03/04/18 MDRO Source:: BODY FLUID ASPIRATE Past Surgical History: Appendectomy, Bowel Resection, Breast Surgery, Cholecystectomy, Coronary Bypass/CABG, Heart Catheterization, Orthopedic Surgery Additional Past Surgical History / Comment(s): "rt leg sx"artificial artery". Bilateral knee replacements. 2016-rt rotator cuff, Left breast surgery for benign tumor. Epidurals to lower back. heart cath 12-08-17, quad cabg 12-11-17, 12/20/17 colectomy/ileostomy- colostomy and reversal, picc line since removed. Past Anesthesia/Blood Transfusion Reactions: No Reported Reaction Past Psychological History: Anxiety, Depression Additional Psychological History / Comment(s): lives in [place] Smoking Status: Former smoker Past Alcohol Use History: Rare Additional Past Alcohol Use History / Comment(s): started smoking 1965 Quit smoking in 2007, smoked 1 PPD Past Drug Use History: None Reported - Past Family History Mother Family Medical History: Cancer Additional Family Medical History / Comment(s): Uterine cancer. Medications and Allergies Home Medications Medication Instructions Recorded Confirmed Type DULoxetine HCL [Cymbalta] 60 mg PO BID 12/14/16 11/15/18 History Ergocalciferol (Vitamin D2) 50,000 unit PO TUFR 12/14/16 11/15/18 History [Vitamin D2] Atorvastatin [Lipitor] 40 mg PO HS 01/24/18 11/15/18 History Amiodarone [Cordarone] 100 mg PO DAILY 03/02/18 11/15/18 History Apixaban [Eliquis] 5 mg PO BID 03/02/18 11/15/18 History Furosemide [Lasix] 40 mg PO DAILY 03/02/18 11/15/18 History Latanoprost/Pf [Latanoprost 0.005% 1 drop BOTH EYES HS 03/02/18 11/15/18 History Eye Drop] Cilostazol [Pletal] 100 mg PO DAILY 11/15/18 11/15/18 History Ipratropium-Albuterol Nebulize 3 ml INHALATION RT-QID 11/15/18 11/15/18 History [Duoneb 0.5 mg-3 mg/3 ml Soln] Levothyroxine Sodium [Tirosint] 88 mcg PO DAILY 11/15/18 11/15/18 History Losartan Potassium 100 mg PO DAILY 11/15/18 11/15/18 History Metoprolol Tartrate [Lopressor] 50 mg PO BID 11/15/18 11/15/18 History Potassium Chloride ER [K-Dur 20] 20 meq PO DAILY 11/15/18 11/15/18 History Repaglinide [Prandin] 0.5 mg PO AC-TID 11/15/18 11/15/18 History amLODIPine [Norvasc] 10 mg PO DAILY 11/15/18 11/15/18 History metFORMIN HCL [Glucophage] 1,000 mg PO DAILY 11/15/18 11/15/18 History metFORMIN HCL [Glucophage] 500 mg PO HS 11/15/18 11/15/18 History oxyCODONE ER [OxyCONTIN] 20 mg PO TID 11/15/18 11/15/18 History predniSONE 5 mg PO DAILY 11/15/18 11/15/18 History Allergies Allergy/AdvReac Type Severity Reaction Status Date / Time No Known Allergies Allergy Verified 11/15/18 16:24 Physical Exam Vitals: Vital Signs Temp Pulse Resp BP Pulse Ox 11/15/18 23:56 97.9 F 18 11/15/18 22:37 98.4 F 88 16 113/63 100 11/15/18 21:37 98.3 F 87 16 109/68 98 11/15/18 19:00 98.4 F 86 16 103/65 97 11/15/18 17:53 16 11/15/18 15:46 97.8 F 87 18 104/74 100 Intake and Output 11/15/18 11/16/18 11/16/18 22:59 06:59 14:59 Intake Total 200 Balance 200 Intake: Oral 200 Other: # Voids 2 Weight 86.183 kg 84.5 kg Results 11/16/18 05:10 11/16/18 05:10 Cardiac Enzymes 11/15/18 11/15/18 11/15/18 Range/Units 16:40 16:40 21:52 AST 34 (14-36) U/L CK-MB (CK-2) 2.1 (0.0-2.4) ng/mL Troponin I 0.038 H* (0.000-0.034) ng/mL 11/15/18 11/16/18 Range/Units 21:52 05:10 AST (14-36) U/L CK-MB (CK-2) (0.0-2.4) ng/mL Troponin I 0.037 H* 0.044 H* (0.000-0.034) ng/mL Coagulation 11/16/18 Range/Units 05:55 APTT 32.2 H (22.0-30.0) sec Lipids 11/16/18 Range/Units 05:10 Triglycerides 177 H (<150) mg/dL Cholesterol 142 (<200) mg/dL HDL Cholesterol 77 H (40-60) mg/dL CBC 11/15/18 11/16/18 Range/Units 16:40 05:10 WBC 15.8 H 11.0 H (3.8-10.6) k/uL RBC 4.40 3.76 L (3.80-5.40) m/uL Hgb 11.3 L 9.6 L D (11.4-16.0) gm/dL Hct 34.6 30.0 L (34.0-46.0) % Plt Count 537 H 434 (150-450) k/uL Comprehensive Metabolic Panel 11/15/18 11/16/18 Range/Units 16:40 05:10 Sodium 131 L 134 L (137-145) mmol/L Potassium 3.5 2.9 L (3.5-5.1) mmol/L Chloride 92 L 96 L (98-107) mmol/L Carbon Dioxide 28 28 (22-30) mmol/L BUN 9 9 (7-17) mg/dL Creatinine 0.73 0.86 (0.52-1.04) mg/dL Glucose 177 H 187 H (74-99) mg/dL Calcium 10.0 9.0 (8.4-10.2) mg/dL AST 34 (14-36) U/L ALT 25 (9-52) U/L Alkaline Phosphatase 156 H (38-126) U/L Total Protein 6.4 (6.3-8.2) g/dL Albumin 3.8 (3.5-5.0) g/dL Current Medications Generic Name Dose Route Start Last Admin Trade Name Freq PRN Reason Stop Dose Admin Amiodarone HCl 100 mg 11/16/18 09:00 Cordarone PO DAILY [facility] Amlodipine Besylate 10 mg 11/16/18 09:00 Norvasc PO DAILY [facility] Aspirin 325 mg 11/16/18 09:00 Aspirin PO DAILY [facility] Atorvastatin Calcium 40 mg 11/16/18 21:00 Lipitor PO HS [facility] Cilostazol 100 mg 11/16/18 09:00 Pletal PO DAILY [facility] Duloxetine HCl 60 mg 11/16/18 09:00 Cymbalta PO BID [facility] Ergocalciferol 50,000 unit 11/16/18 09:00 Vitamin D2 PO TUFR [facility] Furosemide 40 mg 11/16/18 09:00 Lasix PO DAILY [facility] Heparin Sodium/Sodium Chloride 250 mls @ 10 mls/hr 11/15/18 18:45 11/15/18 20:02 25,000 unit/ Sodium Chloride IV 11.603 units/kg/hr .Q24H [facility] 10 mls/hr Administration Protocol 11.603 UNITS/KG/HR Insulin Aspart 0 unit 11/16/18 07:30 Novolog SQ ACHS [facility] Protocol Latanoprost 1 drops 11/16/18 21:00 Xalatan 0.005% BOTH EYES HS [facility] Levothyroxine Sodium 88 mcg 11/16/18 06:30 Synthroid PO DAILY@0630 [facility] Losartan Potassium 100 mg 11/16/18 09:00 Cozaar PO DAILY [facility] Metformin HCl 1,000 mg 11/16/18 09:00 Glucophage PO DAILY [facility] Metformin HCl 500 mg 11/16/18 21:00 Glucophage PO HS [facility] Metoprolol Tartrate 50 mg 11/16/18 09:00 Lopressor PO BID [facility] Miscellaneous Information 1 each 11/16/18 06:27 Potassium Per Protocol MISCELLANE DAILY PRN Per Protocol Protocol Nitroglycerin 0.4 mg 11/15/18 18:40 Nitrostat SUBLINGUAL Q5M PRN Chest Pain Oxycodone HCl 20 mg 11/16/18 09:00 Oxycontin 20mg E.R. PO TID [facility] Potassium Chloride 20 meq 11/16/18 09:00 K-Dur 20 PO DAILY [facility] Potassium Chloride 20 meq 11/16/18 07:00 K-Dur 20 PO 11/16/18 09:01 Q1HR [facility] Protocol Prednisone 5 mg 11/16/18 09:00 PO DAILY [facility] Repaglinide 0.5 mg 11/16/18 07:30 Prandin PO AC-TID [facility] Intake and Output 11/15/18 11/16/18 11/16/18 22:59 06:59 14:59 Intake Total 200 Balance 200 Intake: Oral 200 Other: # Voids 2 Weight 86.183 kg 84.5 kg 11/16/18 05:10 11/16/18 05:10
[2018-11-16] MEDS ORDERED: POTASSIUM CHLORIDE ER 20 MEQ TAB.ER PO SCH (17:00)
[2018-11-16 17:10] LABS: Glucose,Whole Blood 147 mg/dL (75-99)
[2018-11-16] MEDS ORDERED: ATORVASTATIN 40 MG TAB PO SCH (21:00)
[2018-11-16] MEDS ORDERED: LATANOPROST BOTH EYES SCH (21:00)
[2018-11-16] MEDS ORDERED: LATANOPROST 0.005% OPHTH DROPS 2.5 ML BTL BOTH EYES SCH (21:00)
[2018-11-16] MEDS: SULFAMETHOX-TMP 800-160MG 1 EACH TAB PO SCH (21:37)
[2018-11-16 21:46] LABS: Glucose,Whole Blood 202 mg/dL (75-99)
--- NOTE | 2018-11-17 00:47 | P.HPIM ---
History of Present Illness H&P Date: 11/16/18 Chief Complaint: Vomiting History of presenting complaint: This is a pleasant 73-year-old patient to [place]. Chronic stable medical conditions include atrial fibrillation, coronary artery disease, diabetes, hyperlipidemia, hypertension, Randy arthritis, hypothyroid, peripheral arterial disease. Patient stated last week and she just felt very tired and sleepy. When Dr. Hernandez went to see Dr. Alcala. Patient's sugars were 400. She started on metformin. For 2 days Monday and Monday's had a lot of vomiting. No abdominal pain. No fever no chills. Does tired and rundown. [place] rather weak tired and exhausted. Presented here. Review of systems: GEN.: Weak and tired EYES: None HEENT: None NECK: None RESPIRATORY: None CARDIOVASCULAR: None GASTROINTESTINAL: As above GENITOURINARY: None MUSCULOSKELETAL: Pain in the joints LYMPHATICS: None HEMATOLOGICAL: None PSYCHIATRY: None NEUROLOGICAL: None Past medical history: Coronary artery disease with bypass, acute ischemic bowel with perforation, paroxysmal atrial fibrillation, peripheral artery disease, hypothyroid, diabetes mellitus type 2, chronic low back pain from arthritis, depression, hyperlipidemia, hypertension, recurrent intra-abdominal abscess Social history: Smoked a pack a day for 43 years. Stopped in 2007 alcohol rarely. Family history: Uterine cancer Physical examination: VITAL SIGNS: 98.4, 88, 16, 113/63, 100% room air GENERAL: BMI 33, laying in bed, tired appearing. EYES: Pupils equal. Conjunctiva normal. HEENT: External appearance of nose and ears normal, oral cavity grossly normal. NECK: JVD not raised; masses not palpable. HEART: First and second heart sounds are normal; no edema. LUNGS: Respiratory rate normal; clear to auscultation. ABDOMEN: Soft, nontender, liver spleen not palpable, no masses palpable. PSYCH: Alert and oriented x3; mood and affect normal. NEUROLOGICAL: Cranial nerves grossly intact; no facial asymmetry, power and sensation grossly intact. LYMPHATICS: No lymph nodes palpable in the axilla and neck INVESTIGATIONS, reviewed in the clinical context: White count 15.8, hemoglobin 11.3, platelets 537 potassium 3.5 creatinine 0.73 Troponin 0.038 blood glucose 177 UA positive EKG tracing personally reviewed by me shows normal sinus rhythm nonspecific T- wave changes Checks x-ray film personally reviewed by me shows no obvious infiltrate Assessment: -Weak tired likely from dehydration from persistent vomiting could be acute gastroenteritis. -Coronary artery disease per prior history of bypass -Paroxysmal atrial fibrillation -Peripheral artery disease -Hypothyroid -Diabetes mellitus type 2 on oral hypoglycemic -Lumbar osteoarthritis -Hyperlipidemia -Essential hypertension -History of bowel perforation recurrent intra-abdominal abscess -Obesity BMI 33 -Troponin leak possibly from hemodynamic mismatch. Cardiology was consulted Plan: Home medications resumed. Put on IV fluids. Cardiology was consulted. Care was discussed with the patient. Accu-Cheks will be followed. See how the patient does. Repeat labs. Past Medical History Past Medical History: Atrial Fibrillation, Coronary Artery Disease (CAD), Diabetes Mellitus, Hyperlipidemia, Hypertension, Osteoarthritis (OA), Thyroid Disorder, Vascular Disorder Additional Past Medical History / Comment(s): Pt. states poor circulation in RLE due to an artificial bypass. past fall, Chronic back pain, bilateral shoulder problems djd has difficulty with rom.past uti-ecoli, per pt "blood clots to d iaphraghm putting 3 holes in diaphragm" History of Any Multi-Drug Resistant Organisms: ESBL Date of last positivie culture/infection: 03/04/18 MDRO Source:: BODY FLUID ASPIRATE Past Surgical History: Appendectomy, Bowel Resection, Breast Surgery, Cholecystectomy, Coronary Bypass/CABG, Heart Catheterization, Orthopedic Surgery Additional Past Surgical History / Comment(s): "rt leg sx"artificial artery". Bilateral knee replacements. 2016-rt rotator cuff, Left breast surgery for benign tumor. Epidurals to lower back. heart cath 12-08-17, quad cabg 12-11-17, 12/20/17 colectomy/ileostomy- colostomy and reversal, picc line since removed. Past Anesthesia/Blood Transfusion Reactions: No Reported Reaction Past Psychological History: Anxiety, Depression Additional Psychological History / Comment(s): lives in [place] Smoking Status: Former smoker Past Alcohol Use History: Rare Additional Past Alcohol Use History / Comment(s): started smoking 1965 Quit smoking in 2007, smoked 1 PPD Past Drug Use History: None Reported - Past Family History Mother Family Medical History: Cancer Additional Family Medical History / Comment(s): Uterine cancer. Medications and Allergies Home Medications Medication Instructions Recorded Confirmed Type DULoxetine HCL [Cymbalta] 60 mg PO BID 12/14/16 11/15/18 History Ergocalciferol (Vitamin D2) 50,000 unit PO TUFR 12/14/16 11/15/18 History [Vitamin D2] Atorvastatin [Lipitor] 40 mg PO HS 01/24/18 11/15/18 History Amiodarone [Cordarone] 100 mg PO DAILY 03/02/18 11/15/18 History Apixaban [Eliquis] 5 mg PO BID 03/02/18 11/15/18 History Furosemide [Lasix] 40 mg PO DAILY 03/02/18 11/15/18 History Latanoprost/Pf [Latanoprost 0.005% 1 drop BOTH EYES HS 03/02/18 11/15/18 History Eye Drop] Cilostazol [Pletal] 100 mg PO DAILY 11/15/18 11/15/18 History Ipratropium-Albuterol Nebulize 3 ml INHALATION RT-QID 11/15/18 11/15/18 History [Duoneb 0.5 mg-3 mg/3 ml Soln] Levothyroxine Sodium [Tirosint] 88 mcg PO DAILY 11/15/18 11/15/18 History Losartan Potassium 100 mg PO DAILY 11/15/18 11/15/18 History Metoprolol Tartrate [Lopressor] 50 mg PO BID 11/15/18 11/15/18 History Potassium Chloride ER [K-Dur 20] 20 meq PO DAILY 11/15/18 11/15/18 History Repaglinide [Prandin] 0.5 mg PO AC-TID 11/15/18 11/15/18 History amLODIPine [Norvasc] 10 mg PO DAILY 11/15/18 11/15/18 History metFORMIN HCL [Glucophage] 1,000 mg PO DAILY 11/15/18 11/15/18 History metFORMIN HCL [Glucophage] 500 mg PO HS 11/15/18 11/15/18 History oxyCODONE ER [OxyCONTIN] 20 mg PO TID 11/15/18 11/15/18 History predniSONE 5 mg PO DAILY 11/15/18 11/15/18 History Sulfamethoxazole/Trimethoprim 1 tablet PO BID 11/16/18 11/16/18 History [Bactrim DS 800-160 mg] Allergies Allergy/AdvReac Type Severity Reaction Status Date / Time No Known Allergies Allergy Verified 11/15/18 16:24 Physical Exam Vitals: Vital Signs Temp Pulse Pulse Resp BP BP Pulse Ox 11/16/18 19:28 100 11/16/18 16:00 97.7 F 91/59 11/16/18 12:00 97.7 F 77 98 H 133/71 11/16/18 08:00 97.6 F 93 18 129/63 99 11/15/18 23:56 97.9 F 18 11/15/18 22:37 98.4 F 88 16 113/63 100 Intake and Output 11/16/18 11/16/18 11/16/18 06:59 14:59 22:59 Intake Total 200 806.667 240 Balance 200 806.667 240 Intake: Intake, IV Titration 326.667 Amount Heparin Sod,Pork in 0.45% 126.667 NaCl 25,000 unit In 0.45 % NaCl 1 250ml.bag @ 11. 603 UNITS/KG/HR 10 mls/hr IV .Q24H [facility] Rx#: [id number] Magnesium Sulfate-D5w Pmx 200 1 gm In Dextrose/Water 1 100ml.bag @ 100 mls/hr IVPB Q1H [facility] Rx#: [id number] Oral 200 480 240 Other: Voiding Method Toilet Toilet Incontinent # Voids 2 1 2 Weight 84.5 kg Results CBC & Chem 7: 11/16/18 05:10 11/16/18 15:03 Labs: Abnormal Lab Results - Last 24 Hours (Table) 11/15/18 11/15/18 11/16/18 Range/Units 21:52 23:42 05:10 WBC (3.8-10.6) k/uL RBC (3.80-5.40) m/uL Hgb (11.4-16.0) gm/dL Hct (34.0-46.0) % MCV (80.0-100.0) fL APTT (22.0-30.0) sec Sodium (137-145) mmol/L Potassium (3.5-5.1) mmol/L Chloride (98-107) mmol/L Glucose (74-99) mg/dL POC Glucose (mg/dL) 171 H (75-99) mg/dL Troponin I 0.037 H* 0.044 H* (0.000-0.034) ng/mL Triglycerides (<150) mg/dL HDL Cholesterol (40-60) mg/dL 11/16/18 11/16/18 11/16/18 Range/Units 05:10 05:10 05:55 WBC 11.0 H (3.8-10.6) k/uL RBC 3.76 L (3.80-5.40) m/uL Hgb 9.6 L D (11.4-16.0) gm/dL Hct 30.0 L (34.0-46.0) % MCV 79.7 L (80.0-100.0) fL APTT 32.2 H (22.0-30.0) sec Sodium 134 L (137-145) mmol/L Potassium 2.9 L (3.5-5.1) mmol/L Chloride 96 L (98-107) mmol/L Glucose 187 H (74-99) mg/dL POC Glucose (mg/dL) (75-99) mg/dL Troponin I (0.000-0.034) ng/mL Triglycerides 177 H (<150) mg/dL HDL Cholesterol 77 H (40-60) mg/dL 11/16/18 11/16/18 11/16/18 Range/Units 07:06 12:19 17:08 WBC (3.8-10.6) k/uL RBC (3.80-5.40) m/uL Hgb (11.4-16.0) gm/dL Hct (34.0-46.0) % MCV (80.0-100.0) fL APTT (22.0-30.0) sec Sodium (137-145) mmol/L Potassium (3.5-5.1) mmol/L Chloride (98-107) mmol/L Glucose (74-99) mg/dL POC Glucose (mg/dL) 182 H 132 H 147 H (75-99) mg/dL Troponin I (0.000-0.034) ng/mL Triglycerides (<150) mg/dL HDL Cholesterol (40-60) mg/dL 11/16/18 Range/Units 21:29 WBC (3.8-10.6) k/uL RBC (3.80-5.40) m/uL Hgb (11.4-16.0) gm/dL Hct (34.0-46.0) % MCV (80.0-100.0) fL APTT (22.0-30.0) sec Sodium (137-145) mmol/L Potassium (3.5-5.1) mmol/L Chloride (98-107) mmol/L Glucose (74-99) mg/dL POC Glucose (mg/dL) 202 H (75-99) mg/dL Troponin I (0.000-0.034) ng/mL Triglycerides (<150) mg/dL HDL Cholesterol (40-60) mg/dL Thrombosis Risk Factor Assmnt - Choose All That Apply Any of the Below Risk Factors Present?: Yes Each Risk Factor Represents 2 Points: Age 61-74 years, Arthroscopic surgery, Major surgery Each Risk Factor Represents 5 Points: Elective major lower extremity arthoplasty Thrombosis Risk Factor Assessment Total Risk Factor Score: 11 Thrombosis Risk Factor Assessment Level: High Risk
[2018-11-17 05:16] LABS: Magnesium 2.2 mg/dL (1.6-2.3); Potassium 3.6 mmol/L (3.5-5.1)
[2018-11-17] MEDS ORDERED: Potassium Replacement Protocol 1 EACH MISC MISCELLANE PRN (05:51)
[2018-11-17] MEDS ORDERED: POTASSIUM CHLORIDE ER 20 MEQ TAB.ER PO SCH (06:00)
[2018-11-17] MEDS: LEVOTHYROXINE 88 MCG TAB PO SCH (06:45)
[2018-11-17] MEDS: INSULIN ASPART (NovoLOG) 100 UNIT/ML VIAL SQ SCH ×2 (06:46→12:10)
[2018-11-17] MEDS: REPAGLINIDE 1 MG TAB PO SCH ×2 (06:46→12:21)
[2018-11-17 06:47] LABS: Glucose,Whole Blood 103 mg/dL (75-99)
[2018-11-17] MEDS: SODIUM CHLORIDE 0.9% 1,000 ML IV SCH ×2 (06:49→12:10)
[2018-11-17] MEDS: IPRATROPIUM-ALBUTEROL 3 ML NEB INHALATION SCH ×3 (07:28→15:36)
[2018-11-17] MEDS: predniSONE 5 MG TAB PO SCH (08:59)
[2018-11-17] MEDS: DULoxetine HCL 60 MG CAPSULE.DR PO SCH (08:59)
[2018-11-17] MEDS: CILOSTAZOL 100 MG TAB PO SCH (08:59)
[2018-11-17] MEDS: ASPIRIN 325 MG TAB PO SCH (08:59)
[2018-11-17] MEDS: metFORMIN 500 MG TAB PO SCH (08:59)
[2018-11-17] MEDS: METOPROLOL TARTRATE 50 MG TAB PO SCH (09:00)
[2018-11-17] MEDS: SULFAMETHOX-TMP 800-160MG 1 EACH TAB PO SCH (09:00)
[2018-11-17] MEDS: AMIODARONE 100 MG TAB PO SCH (09:00)
[2018-11-17] MEDS: POTASSIUM CHLORIDE ER 20 MEQ TAB.ER PO SCH (09:00)
[2018-11-17] MEDS ORDERED: NON-FORMULARY DRUG (Losartan Potassium [Losartan Potassium] 100 MG) PO SCH (09:00)
[2018-11-17] MEDS: APIXABAN 5 MG TAB PO SCH (09:00)
[2018-11-17] MEDS: oxyCODONE ER 20 MG TAB.ER.12H PO SCH ×2 (09:15→12:21)
[2018-11-17 11:50] LABS: Glucose,Whole Blood 146 mg/dL (75-99)
[2018-11-17] MEDS: amLODIPine 10 MG TAB PO SCH (12:09)
[2018-11-17] MEDS: LOSARTAN 50 MG TAB PO SCH (12:10)
[2018-11-17 12:24] VITALS: TEMP 98
--- NOTE | 2018-11-17 12:53 | P.DS ---
Providers Date of admission: 11/16/18 10:13 Expected date of discharge: 11/17/18 Attending physician: Parveen Dietz Consults: 11/15/18 18:40 Consult Physician Urgent Consulting Provider: Debby Bartholomew Consult Reason/Comments: elevated troponin Do you want consulting provider notified?: Yes Primary care physician: Diaz Alcala [facility] Course: Hospital course: Chronic stable medical conditions include atrial fibrillation, coronary artery disease, diabetes, hyperlipidemia, hypertension, Randy arthritis, hypothyroid, peripheral arterial disease. Patient stated last week and she just felt very tired and sleepy. went to see Dr. Alcala. Patient's sugars were 400. She started on metformin. For 2 days Monday and Monday's had a lot of vomiting. No abdominal pain. No fever no chills. Does tired and rundown. [place] rather weak tired and exhausted. Presented here. Patient is felt to be severely dehydrated. Given IV fluids. Did feel much better. Now tolerating a tolerating a diet. Up and about. Feeling well. Care was discussed at length with the patient. We also discussed how bothered her diet in particular. Given the significant GI history. Patient did understand . Physical examination: VITAL SIGNS: 98, 78, 18, 108/70, 100% room air GENERAL:, laying in bed, comfortable EYES: Pupils equal. Conjunctiva normal. HEENT: External appearance of nose and ears normal, oral cavity grossly normal. NECK: JVD not raised; masses not palpable. HEART: First and second heart sounds are normal; no edema. LUNGS: Respiratory rate normal; clear to auscultation. ABDOMEN: Soft, nontender, liver spleen not palpable, no masses palpable. PSYCH: Alert and oriented x3; mood and affect normal. INVESTIGATIONS, reviewed in the clinical context: Potassium 3.6 creatinine 0.9 to Troponin 0.038 blood glucose 177 UA negative EKG tracing personally reviewed by me shows normal sinus rhythm nonspecific T- wave changes Checks x-ray film personally reviewed by me shows no obvious infiltrate Assessment: -Weak tired likely from dehydration from persistent vomiting could be acute gastroenteritis. -Coronary artery disease per prior history of bypass -Paroxysmal atrial fibrillation -Peripheral artery disease -Hypothyroid -Diabetes mellitus type 2 on oral hypoglycemic -Lumbar osteoarthritis -Hyperlipidemia -Essential hypertension -History of bowel perforation recurrent intra-abdominal abscess -Obesity BMI 33 -Troponin leak possibly from hemodynamic mismatch. Cardiology was consulted Disposition: Home Patient Condition at Discharge: Stable Plan - Discharge Summary Discharge Rx Participant: Yes New Discharge Prescriptions: Continue Ergocalciferol (Vitamin D2) [Vitamin D2] 50,000 unit PO TUFR DULoxetine HCL [Cymbalta] 60 mg PO BID Atorvastatin [Lipitor] 40 mg PO HS Furosemide [Lasix] 40 mg PO DAILY Apixaban [Eliquis] 5 mg PO BID Latanoprost/Pf [Latanoprost 0.005% Eye Drop] 1 drop BOTH EYES HS Amiodarone [Cordarone] 100 mg PO DAILY amLODIPine [Norvasc] 10 mg PO DAILY Potassium Chloride ER [K-Dur 20] 20 meq PO DAILY Ipratropium-Albuterol Nebulize [Duoneb 0.5 mg-3 mg/3 ml Soln] 3 ml INHALATION RT-QID oxyCODONE ER [OxyCONTIN] 20 mg PO TID predniSONE 5 mg PO DAILY Metoprolol Tartrate [Lopressor] 50 mg PO BID Losartan Potassium 100 mg PO DAILY Cilostazol [Pletal] 100 mg PO DAILY metFORMIN HCL [Glucophage] 500 mg PO HS Repaglinide [Prandin] 0.5 mg PO AC-TID Levothyroxine Sodium [Tirosint] 88 mcg PO DAILY metFORMIN HCL [Glucophage] 1,000 mg PO DAILY Sulfamethoxazole/Trimethoprim [Bactrim DS 800-160 mg] 1 tablet PO BID Discharge Medication List DULoxetine HCL [Cymbalta] 60 mg PO BID 12/14/16 [History] Ergocalciferol (Vitamin D2) [Vitamin D2] 50,000 unit PO TUFR 12/14/16 [History] Atorvastatin [Lipitor] 40 mg PO HS 01/24/18 [History] Amiodarone [Cordarone] 100 mg PO DAILY 03/02/18 [History] Apixaban [Eliquis] 5 mg PO BID 03/02/18 [History] Furosemide [Lasix] 40 mg PO DAILY 03/02/18 [History] Latanoprost/Pf [Latanoprost 0.005% Eye Drop] 1 drop BOTH EYES HS 03/02/18 [History] Cilostazol [Pletal] 100 mg PO DAILY 11/15/18 [History] Ipratropium-Albuterol Nebulize [Duoneb 0.5 mg-3 mg/3 ml Soln] 3 ml INHALATION RT-QID 11/15/18 [History] Levothyroxine Sodium [Tirosint] 88 mcg PO DAILY 11/15/18 [History] Losartan Potassium 100 mg PO DAILY 11/15/18 [History] Metoprolol Tartrate [Lopressor] 50 mg PO BID 11/15/18 [History] Potassium Chloride ER [K-Dur 20] 20 meq PO DAILY 11/15/18 [History] Repaglinide [Prandin] 0.5 mg PO AC-TID 11/15/18 [History] amLODIPine [Norvasc] 10 mg PO DAILY 11/15/18 [History] metFORMIN HCL [Glucophage] 1,000 mg PO DAILY 11/15/18 [History] metFORMIN HCL [Glucophage] 500 mg PO HS 11/15/18 [History] oxyCODONE ER [OxyCONTIN] 20 mg PO TID 11/15/18 [History] predniSONE 5 mg PO DAILY 11/15/18 [History] Sulfamethoxazole/Trimethoprim [Bactrim DS 800-160 mg] 1 tablet PO BID 11/16/18 [History] Follow up Appointment(s)/Referral(s): Diaz Alcala DO [Primary Care Provider] - 1-2 days Activity/Diet/Wound Care/Special Instructions: soft bland carb consistent diet
[2018-11-17 14:26] VITALS: BP 129/65; PULSE 81; RESP 97
--- NOTE | 2018-11-17 17:12 | P.PN ---
Subjective Progress Note Date: 11/17/18 This is a 73-year-old female with history of for her hypertension, paroxysmal atrial fibrillation and diabetes mellitus who was admitted with nausea, vomiting and not eating for a few days. Denied any chest pain or shortness of breath Her troponins were mildly elevated. Patient was seen by Dr. Tejeda and felt the elevation of the troponin is noncardiac in nature. Since her blood sugar was controlled. Patient has been feeling well. No nausea or vomiting. Patient is being discharged home Follow-up in the office in one week Objective - Vital Signs Vital signs: Vital Signs Temp 98 F 11/17/18 12:00 Pulse 81 11/17/18 14:25 Resp 97 H 11/17/18 14:25 BP 129/65 11/17/18 14:25 Pulse Ox 100 11/17/18 12:00 Intake & Output 11/16/18 11/17/18 11/17/18 18:59 06:59 18:59 Intake Total 1046.667 100 240 Output Total 250 Balance 1046.667 100 -10 Weight 88.1 kg Intake: Intake, IV Titration 326.667 Amount Heparin Sod,Pork in 0.45% 126.667 NaCl 25,000 unit In 0.45 % NaCl 1 250ml.bag @ 11. 603 UNITS/KG/HR 10 mls/hr IV .Q24H WILLIAM Rx#: [id number] Magnesium Sulfate-D5w Pmx 200 1 gm In Dextrose/Water 1 100ml.bag @ 100 mls/hr IVPB Q1H WILLIAM Rx#: [id number] Oral 720 100 240 Output: Emesis 250 Other: Voiding Method Toilet Toilet # Voids 2 1 1 - Exam GENERAL EXAM: Patient is alert and oriented and doesn't appear to be in any acute distress HEENT: Normocephalic. Normal reaction of pupils, equal size, normal range of extraocular motion. No erythema or exudates in the throat. NECK: No masses, no nuchal rigidity. CHEST: No chest wall deformity. LUNGS: [Equal air entry with no crackles or wheeze.] HEART: [S1 and S2 normal with no audible mumurs or gallops. Regular rhythm, femorals equal on both sides..] ABDOMEN: No hepatosplenomegaly, normal bowel sounds, no guarding or rigidity. SKIN: No rashes CENTRAL NERVOUS SYSTEM: No focal deficits. EXTREMITIES: [No cyanosis, clubbing or edema.] - Labs CBC & Chem 7: 11/16/18 05:10 11/17/18 04:37 Labs: Abnormal Lab Results - Last 24 Hours (Table) 11/16/18 11/16/18 11/17/18 Range/Units 17:08 21:29 04:37 Sodium 136 L (137-145) mmol/L Glucose 116 H (74-99) mg/dL POC Glucose (mg/dL) 147 H 202 H (75-99) mg/dL 11/17/18 11/17/18 Range/Units 06:44 11:47 Sodium (137-145) mmol/L Glucose (74-99) mg/dL POC Glucose (mg/dL) 103 H 146 H (75-99) mg/dL Assessment and Plan (1) Paroxysmal atrial fibrillation Status: Acute Code(s): I48.0 - PAROXYSMAL ATRIAL FIBRILLATION SNOMED Code(s): 851317969 (2) Acute vomiting Status: Acute Code(s): R11.10 - VOMITING, UNSPECIFIED SNOMED Code(s): 27588444 (3) Elevated troponin Status: Acute Code(s): R74.8 - ABNORMAL LEVELS OF OTHER SERUM ENZYMES SNOMED Code(s): 104662150 Plan: patient is critically stable. Patient could be discharged home. Follow-up in the office in one week
== END 2018-11-17 15:45 | disposition home or self-care (01) | DRG 641 ==
LOC: EC 15:03 → 3SCARD 18:40 → 2SICU 11-16 00:12 → OBSVTOIN 11-16 10:13
PROVIDERS: ADMIT Hospitalist; ATTEND Hospitalist
DX: E86.0 Dehydration (principal); E03.9 Hypothyroidism, unspecified; E11.51 Type 2 diabetes mellitus with diabetic peripheral angiopathy without gangrene; E66.9 Obesity, unspecified; Z68.34 Body mass index [BMI] 34.0-34.9, adult; E78.5 Hyperlipidemia, unspecified; E87.1 Hypo-osmolality and hyponatremia; F32.9 Major depressive disorder, single episode, unspecified; F41.9 Anxiety disorder, unspecified; I10 Essential (primary) hypertension; I25.10 Atherosclerotic heart disease of native coronary artery without angina pectoris; I48.0 Paroxysmal atrial fibrillation; M19.90 Unspecified osteoarthritis, unspecified site; M47.816 Spondylosis without myelopathy or radiculopathy, lumbar region; Z79.01 Long term (current) use of anticoagulants; Z79.02 Long term (current) use of antithrombotics/antiplatelets; Z79.84 Long term (current) use of oral hypoglycemic drugs; Z79.890 Hormone replacement therapy; Z79.899 Other long term (current) drug therapy; Z80.49 Family history of malignant neoplasm of other genital organs; Z87.440 Personal history of urinary (tract) infections; Z87.891 Personal history of nicotine dependence; Z95.1 Presence of aortocoronary bypass graft; Z96.653 Presence of artificial knee joint, bilateral; Z79.891 Long term (current) use of opiate analgesic; R79.89 Other specified abnormal findings of blood chemistry; K52.9 Noninfective gastroenteritis and colitis, unspecified
CPT/HCPCS: 36415; 71046; 80048; 80053; 80061; 81003; 82150; 82553; 83605; 83690; 83735; 84132; 84443; 84484; 85025; 85730; 93005; 96361; 96365; 96366; 96368; 96375; 96376; 99285

== ENCOUNTER 2019-01-18 06:18 | Inpatient (IN) | payer MEDICARE, OTHER ==
[~2019-01-18 06:18] MED LIST changes: -HYDROmorphone 1 MG/ML 1 ML SYRINGE IVP PRN; -LACTATED RINGERS 1,000 ML IV SCH; -MIDAZOLAM 2 MG/2 ML VIAL IV PRN; -ONDANSETRON 4 MG/2 ML VIAL IVP ONE; -ceFAZolin IN SWFI 2 GM/20 ML SYRINGE IVP ONE; -fentaNYL (PF) 50 MCG/ML 2 ML AMP IV PRN; -metroNIDAZOLE-NS PMX 500 MG in SALINE 1 100ML.BAG IVPB ONE
[2019-01-18] MEDS: ONDANSETRON 4 MG/2 ML VIAL IVP ONE ×2 (07:01→09:25)
[2019-01-18] MEDS ORDERED: LACTATED RINGERS 1,000 ML IV ONE ×2 (07:01→09:38)
[2019-01-18 07:02] LABS: Glucose,Whole Blood 165 mg/dL (75-99)
[2019-01-18] MEDS ORDERED: METOPROLOL TARTRATE 50 MG TAB PO STA (07:03)
[2019-01-18] MEDS ORDERED: fentaNYL (PF) 50 MCG/ML 2 ML AMP IVP ONE (07:16)
--- NOTE | 2019-01-18 07:26 | P.ANPRN ---
Procedure Note - Anesthesia - Nerve Block Performed Bilateral Transversus Abdominis Single Time Out Performed: Yes Date of Procedure: 01/18/19 Procedure Start Time: :16 Procedure Stop Time: :23 Location of Patient Procedure: PreOp Indication: Acute Post-Operative Pain, Requested by Surgeon Sedation Type: Sedate with meaningful contact maintained Preparation: Sterile Prep Position: Supine Catheter: None Needle Types: Pajunk Needle Gauge: 21 Ultrasound used to visualize needle placement: Yes Ultrasound used to observe medication spread: Yes Injectate: 0.5% Ropivacaine (see comment for volume) (15 cc + 2mg decadron per side.) Blood Aspirated: No Pain Paresthesia on Injection Noted: No Resistance on Injection: Normal Image Stored and Saved: Yes Events: Uneventful and Well Tolerated
[2019-01-18 07:30] LABS: African American GFR (CKD) >90 (>60 ml/min/1.73 sqM); Anion Gap 15 mmol/L; Blood Urea Nitrogen 12 mg/dL (7-17); Calcium 9.9 mg/dL (8.4-10.2); Carbon Dioxide 24 mmol/L (22-30); Chloride 100 mmol/L (98-107); Glucose 170 mg/dL (74-99); Potassium 3.7 mmol/L (3.5-5.1); Sodium 139 mmol/L (137-145)
[2019-01-18] MEDS ORDERED: PROPOFOL 10 MG/ML 20 ML VIAL IV ONE (07:49)
[2019-01-18] MEDS ORDERED: NEOSTIGMINE 1 MG/ML 10 ML VIAL ONE (07:49)
[2019-01-18] MEDS ORDERED: DEXAMETHASONE SOD PHOSPHATE 4 MG/ML 1 ML VIAL ONE (07:49)
[2019-01-18] MEDS ORDERED: MIDAZOLAM 2 MG/2 ML VIAL ONE (07:49)
[2019-01-18] MEDS ORDERED: GLYCOPYRROLATE 0.2 MG/ML 2 ML VIAL ONE (07:49)
[2019-01-18] MEDS ORDERED: fentaNYL (PF) 50 MCG/ML 2 ML AMP ONE (07:49)
[2019-01-18] MEDS ORDERED: ROCURONIUM BROMIDE 10 MG/ML 10 ML VIAL IV ONE (07:49)
[2019-01-18] MEDS ORDERED: LIDOCAINE 1% INJ 10MG/ML (20 ML MDV) ONE (07:49)
[2019-01-18] MEDS ORDERED: ROPIVACAINE 5 MG/ML 30 ML VIAL ONE (07:49)
[2019-01-18] MEDS ORDERED: KETOROLAC 30 MG/ML 1 ML VIAL ONE (07:49)
--- NOTE | 2019-01-18 08:04 | P.GSHP ---
History of Present Illness H&P Date: 01/18/19 Chief Complaint: Incisional hernia This a 73-year-old female who presents today for open repair of incisional hernia. Past Medical History Past Medical History: Atrial Fibrillation, Coronary Artery Disease (CAD), Diabetes Mellitus, Hyperlipidemia, Hypertension, Memory Impairment, Musculoskeletal Disorder, Osteoarthritis (OA), Thyroid Disorder, Vascular Disorder Additional Past Medical History / Comment(s): Pt. states poor circulation in RLE due to an artificial bypass. Chronic back pain, bilateral shoulder problems due to Degenerative Joint Disease/arthritis. Chronic diarrhea. Chronic high WBC count. Patient states "Dr Montoya aware, waiting to hear if he will do surgery or not due to WBC level, also having a repeat EKG today, ordered by Dr Montoya." "Forgetful." Vertigo at times. History of Any Multi-Drug Resistant Organisms: ESBL Date of last positivie culture/infection: 03/04/18 MDRO Source:: BODY FLUID ASPIRATE Past Surgical History: Appendectomy, Bowel Resection, Breast Surgery, Cholecyst ectomy, Coronary Bypass/CABG, Heart Catheterization, Joint Replacement, Orthopedic Surgery Additional Past Surgical History / Comment(s): "Rt leg sx, artificial artery". Bilateral knee replacements. Rt rotator cuff, left breast surgery for benign tumor. Epidurals to lower back. Quad CABG 12-11-17, 12/20/17 colectomy/ileostomy- colostomy and reversal, picc line placement/removal. Past Anesthesia/Blood Transfusion Reactions: No Reported Reaction Past Psychological History: Anxiety, Depression Smoking Status: Former smoker Past Alcohol Use History: None Reported Additional Past Alcohol Use History / Comment(s): started smoking 1965 Quit smoking in 2007, smoked 1 PPD. Past Drug Use History: None Reported - Past Family History Mother Family Medical History: Cancer Additional Family Medical History / Comment(s): Uterine cancer. Father Family Medical History: Congestive Heart Failure (CHF) Medications and Allergies Home Medications Medication Instructions Recorded Confirmed Type DULoxetine HCL [Cymbalta] 60 mg PO HS 12/14/16 01/17/19 History Ergocalciferol (Vitamin D2) 50,000 unit PO COHEN 12/14/16 01/17/19 History [Vitamin D2] Atorvastatin [Lipitor] 40 mg PO HS 01/24/18 01/17/19 History Amiodarone [Cordarone] 100 mg PO 1200 03/02/18 01/17/19 History Apixaban [Eliquis] 5 mg PO BID 03/02/18 01/17/19 History Furosemide [Lasix] 40 mg PO BID 03/02/18 01/17/19 History Latanoprost/Pf [Latanoprost 0.005% 1 drop BOTH EYES HS 03/02/18 01/17/19 History Eye Drop] Cilostazol [Pletal] 100 mg PO DAILY 11/15/18 01/17/19 History Levothyroxine Sodium [Tirosint] 88 mcg PO QAM 11/15/18 01/17/19 History Losartan Potassium 100 mg PO QAM 11/15/18 01/17/19 History Metoprolol Tartrate [Lopressor] 50 mg PO BID 11/15/18 01/17/19 History Potassium Chloride ER [K-Dur 20] 20 meq PO DAILY 11/15/18 01/17/19 History amLODIPine [Norvasc] 10 mg PO QAM 11/15/18 01/17/19 History metFORMIN HCL [Glucophage] 500 mg PO BID 11/15/18 01/17/19 History oxyCODONE ER [OxyCONTIN] 20 mg PO BID 11/15/18 01/17/19 History predniSONE 5 mg PO 1200 11/15/18 01/17/19 History Loperamide HCl [Imodium] 2 mg PO DAILY 01/17/19 01/17/19 History Ondansetron [Zofran] 8 mg PO DAILY PRN 01/17/19 01/17/19 History Allergies Allergy/AdvReac Type Severity Reaction Status Date / Time No Known Allergies Allergy Verified 01/17/19 10:41 Surgical - Exam Vital Signs Temp Pulse Resp BP Pulse Ox 97.8 F 74 74 H 153/80 100 01/18/19 06:45 01/18/19 06:45 01/18/19 06:45 01/18/19 06:45 01/18/19 06:45 - General well developed, well nourished, no distress - Eyes PERRL - ENT normal pinna - Neck no masses - Respiratory normal expansion - Cardiovascular Rhythm: regular - Abdomen Abdomen: soft, non tender Results - Labs 01/18/19 06:58 Abnormal Lab Results - Last 24 Hours (Table) 01/18/19 01/18/19 Range/Units 06:58 06:59 Glucose 170 H (74-99) mg/dL POC Glucose (mg/dL) 165 H (75-99) mg/dL Diabetes panel 01/18/19 Range/Units 06:58 Sodium 139 (137-145) mmol/L Potassium 3.7 (3.5-5.1) mmol/L Chloride 100 (98-107) mmol/L Carbon Dioxide 24 (22-30) mmol/L BUN 12 (7-17) mg/dL Creatinine 0.72 (0.52-1.04) mg/dL Glucose 170 H (74-99) mg/dL Calcium 9.9 (8.4-10.2) mg/dL Calcium panel 01/18/19 Range/Units 06:58 Calcium 9.9 (8.4-10.2) mg/dL Pituitary panel 01/18/19 Range/Units 06:58 Sodium 139 (137-145) mmol/L Potassium 3.7 (3.5-5.1) mmol/L Chloride 100 (98-107) mmol/L Carbon Dioxide 24 (22-30) mmol/L BUN 12 (7-17) mg/dL Creatinine 0.72 (0.52-1.04) mg/dL Glucose 170 H (74-99) mg/dL Calcium 9.9 (8.4-10.2) mg/dL Adrenal panel 01/18/19 Range/Units 06:58 Sodium 139 (137-145) mmol/L Potassium 3.7 (3.5-5.1) mmol/L Chloride 100 (98-107) mmol/L Carbon Dioxide 24 (22-30) mmol/L BUN 12 (7-17) mg/dL Creatinine 0.72 (0.52-1.04) mg/dL Glucose 170 H (74-99) mg/dL Calcium 9.9 (8.4-10.2) mg/dL Assessment and Plan Assessment: Incisional hernia. We'll perform open repair. Patient aware the risk of wound infection, bleeding.
[2019-01-18] MEDS ORDERED: BUPIVACAINE (PF) 0.5% 30 ML VIAL SQ ONE ×3 (08:18→09:07)
[2019-01-18] MEDS ORDERED: diphenhydrAMINE 50 MG/ML 1 ML VIAL IVP ONE (09:30)
[2019-01-18] MEDS ORDERED: NALOXONE 0.4 MG/ML 1 ML VIAL IV PRN (09:38)
[2019-01-18] MEDS: HYDROmorphone 0.5 MG/0.5 ML SYRINGE IVP PRN ×7 (09:47→23:20)
[2019-01-18] MEDS ORDERED: SODIUM CHLORIDE 0.9% 1,000 ML IV ONE ×2 (09:49)
[2019-01-18 10:04] LABS: Glucose,Whole Blood 184 mg/dL (75-99)
[2019-01-18] MEDS ORDERED: LEVOFLOXACIN 500MG-D5W PMX 500 MG in DEXTROSE/WATER 1 100ML.BAG IVPB STA (10:33)
[2019-01-18 14:26] VITALS: BMI 33.3
[2019-01-18] MEDS: LACTATED RINGERS 1,000 ML IV SCH (15:35)
[2019-01-18] MEDS: INSULIN ASPART (NovoLOG) 100 UNIT/ML VIAL SQ SCH ×2 (17:21→21:33)
[2019-01-18 17:22] LABS: Glucose,Whole Blood 270 mg/dL (75-99)
[2019-01-18] MEDS: HYDROcodone/APAP 5-325MG 1 EACH TAB PO PRN (20:24)
[2019-01-18 21:02] LABS: Glucose,Whole Blood 257 mg/dL (75-99)
[2019-01-18] MEDS: ATORVASTATIN 40 MG TAB PO SCH (21:33)
[2019-01-18] MEDS: DOCUSATE 100 MG CAP PO SCH (21:33)
[2019-01-18] MEDS: DULoxetine HCL 60 MG CAPSULE.DR PO SCH (21:33)
[2019-01-18] MEDS: METOPROLOL TARTRATE 50 MG TAB PO SCH (21:34)
--- NOTE | 2019-01-19 01:33 | P.CONS ---
History of Present Illness - Reason for Consult Consult date: 01/18/19 Medical management of multiple medical problems - Chief Complaint Status post incisional hernia repair. - History of Present Illness Patient is a 73-year-old female with a known history of paroxysmal atrial fibrillation on anticoagulation with Eliquis, coronary artery disease status post CABG and history of cardiac catheterization, diabetes type 2 [id number], hypertension, hyperlipidemia, memory impairment and hypothyroidism as well as osteoarthritis and other multiple medical problems was admitted to the hospital for elective incisional hernia repair. Patient tolerated the procedure well. Postoperatively patient's blood pressure is in the lower side. Currently patient denied any complaints of chest pain or shortness of breath. No nausea vomiting or abdominal pain. Pain is controlled at this time. No headache or dizziness or lightheadedness. No fever or chills. Anticoagulation was held prior to surgery. Review of Systems Constitutional: Patient denies any fever or chills . No generalized weakness or weight loss. Abdomen: Patient denied nausea vomiting and diarrhea and abdominal pain. Cardiovascular: Patient denies any chest pain or short of breath no palpitations. Respiratory: patient denied any cough is from production. No shortness of breath Neurologic: Patient denied any numbness or tingling headache. Musculoskeletal: Patient denies any complaints of joint swelling or deformity. Skin: Negative Psychiatric: Negative Endocrine: No heat or cold intolerance. No recent weight gain. Genitourinary: No dysuria or hematuria. All other 14 point ROS negative except the above Past Medical History Past Medical History: Atrial Fibrillation, Coronary Artery Disease (CAD), Diabetes Mellitus, Hyperlipidemia, Hypertension, Memory Impairment, Musculoskeletal Disorder, Osteoarthritis (OA), Thyroid Disorder, Vascular Disorder Additional Past Medical History / Comment(s): Pt. states poor circulation in RLE due to an artificial bypass. Chronic back pain, bilateral shoulder problems due to Degenerative Joint Disease/arthritis. Chronic diarrhea. Chronic high WBC count. Patient states "Dr Montoya aware, waiting to hear if he will do surgery or not due to WBC level, also having a repeat EKG today, ordered by Dr Montoya." "Forgetful." Vertigo at times. History of Any Multi-Drug Resistant Organisms: ESBL Year Discovered:: 03/04/18 MDRO Source:: BODY FLUID ASPIRATE Past Surgical History: Appendectomy, Bowel Resection, Breast Surgery, Cholecystectomy, Coronary Bypass/CABG, Heart Catheterization, Joint Replacement, Orthopedic Surgery Additional Past Surgical History / Comment(s): "Rt leg sx, artificial artery". Bilateral knee replacements. Rt rotator cuff, left breast surgery for benign tumor. Epidurals to lower back. Quad CABG 12-11-17, 12/20/17 colectomy/ileostomy- colostomy and reversal, picc line placement/removal. Past Anesthesia/Blood Transfusion Reactions: No Reported Reaction Past Psychological History: Anxiety, Depression Additional Psychological History / Comment(s): lives in [place] Smoking Status: Former smoker Past Alcohol Use History: None Reported Additional Past Alcohol Use History / Comment(s): started smoking 1965 Quit smoking in 2007, smoked 1 PPD. Past Drug Use History: None Reported - Past Family History Mother Family Medical History: Cancer Additional Family Medical History / Comment(s): Uterine cancer. Father Family Medical History: Congestive Heart Failure (CHF) Medications and Allergies Home Medications Medication Instructions Recorded Confirmed Type DULoxetine HCL [Cymbalta] 60 mg PO HS 12/14/16 01/17/19 History Ergocalciferol (Vitamin D2) 50,000 unit PO COHEN 12/14/16 01/17/19 History [Vitamin D2] Atorvastatin [Lipitor] 40 mg PO HS 01/24/18 01/17/19 History Amiodarone [Cordarone] 100 mg PO 1200 03/02/18 01/17/19 History Apixaban [Eliquis] 5 mg PO BID 03/02/18 01/17/19 History Furosemide [Lasix] 40 mg PO BID 03/02/18 01/17/19 History Latanoprost/Pf [Latanoprost 0.005% 1 drop BOTH EYES HS 03/02/18 01/17/19 History Eye Drop] Cilostazol [Pletal] 100 mg PO DAILY 11/15/18 01/17/19 History Levothyroxine Sodium [Tirosint] 88 mcg PO QAM 11/15/18 01/17/19 History Losartan Potassium 100 mg PO QAM 11/15/18 01/17/19 History Metoprolol Tartrate [Lopressor] 50 mg PO BID 11/15/18 01/17/19 History Potassium Chloride ER [K-Dur 20] 20 meq PO DAILY 11/15/18 01/17/19 History amLODIPine [Norvasc] 10 mg PO QAM 11/15/18 01/17/19 History metFORMIN HCL [Glucophage] 500 mg PO BID 11/15/18 01/17/19 History oxyCODONE ER [OxyCONTIN] 20 mg PO BID 11/15/18 01/17/19 History predniSONE 5 mg PO 1200 11/15/18 01/17/19 History Loperamide HCl [Imodium] 2 mg PO DAILY 01/17/19 01/17/19 History Ondansetron [Zofran] 8 mg PO DAILY PRN 01/17/19 01/17/19 History Allergies Allergy/AdvReac Type Severity Reaction Status Date / Time No Known Allergies Allergy Verified 01/17/19 10:41 Physical Exam Vitals: Vital Signs Temp Pulse Pulse Resp BP BP Pulse Ox 01/18/19 15:29 16 01/18/19 14:25 97.9 F 90 16 122/70 01/18/19 13:28 77 16 117/72 99 01/18/19 12:31 77 16 136/64 95 01/18/19 11:30 74 16 146/71 93 L 01/18/19 11:15 74 16 143/72 93 L 01/18/19 11:00 73 16 143/70 100 01/18/19 10:45 70 16 150/75 95 01/18/19 10:39 70 16 150/76 97 01/18/19 10:24 67 16 157/81 96 01/18/19 10:09 67 16 157/86 100 01/18/19 09:53 64 18 138/67 100 01/18/19 09:38 63 16 135/62 99 01/18/19 09:23 97.3 F L 76 14 145/83 95 01/18/19 07:30 69 18 138/72 100 01/18/19 06:45 97.8 F 74 74 H 153/80 100 Intake and Output 01/18/19 01/18/19 01/18/19 06:59 14:59 22:59 Intake Total 1200 Output Total 20 Balance 1180 Intake: IV 1200 Output: Estimated Blood Loss 20 Other: Voiding Method Incontinent Weight 85.275 kg PHYSICAL EXAMINATION: Patient is lying in the bed comfortably, no acute distress, awake alert and oriented.. HEENT: Normocephalic. Neck is supple. Pupils reactive. Nostrils clear. Oral cavity is moist. Ears reveal no drainage. Neck reveals no JVD, carotid bruits, or thyromegaly. CHEST EXAMINATION: Trachea is central. Symmetrical expansion. Bibasilar diminished air entry, Lung arias clear to auscultation and percussion. CARDIAC: Normal S1, S2 with no gallops. No murmurs ABDOMEN: Soft. Bowel sounds diminished . Midline surgical site bandaged.. No organomegaly. No abdominal bruits. Extremities: reveal no edema. No clubbing or cyanosis Neurologically awake, alert, oriented x3 with well-coordinated movements. No focal deficits noted Skin: No rash or skin lesions. Psychiatric: Coperative. Nonsuicidal Musculoskeletal: No joint swelling or deformity. Normal range of motion. Results CBC & Chem 7: 01/18/19 06:58 Labs: Abnormal Lab Results - Last 24 Hours (Table) 01/18/19 01/18/19 01/18/19 Range/Units 06:58 06:59 09:54 Glucose 170 H (74-99) mg/dL POC Glucose (mg/dL) 165 H 184 H (75-99) mg/dL Assessment and Plan Assessment: Status post incisional hernia repair postoperative day 0. Paroxysmal atrial fibrillation on anticoagulation in the form of Eliquis. Can be restarted as per surgery evaluation Coronary artery disease history of CABG Hypertension currently patient is hypotensive Hyperlipidemia Diabetes type 2 rja-hobqxoh-elxswolhw. Memory impairment Hypothyroidism Degenerative joint disease Chronic diarrhea Peripheral vascular disease History of colostomy bag and reversal Anxiety/depression Previous history of smoking Chronic back pain Osteoarthritis DVT prophylaxis. Currently on Lovenox Plan: Patient will be continued on pain management, bowel regimen and incentive spirometry. Monitor H&H. Encourage ambulation. Blood pressure medications in the form of Lasix and lisinopril have been held at this time due to low blood pressure. Can be started back on some blood pressure is more stable Patient is currently on Eliquis at home which can be restarted once the surgery is agreeable with it. Continue with beta blockers. Insulin sliding scale for blood sugar management. Continue with other home medications and follow closely. We will continue to follow with you Thank you for your consult. Time with Patient: Greater than 30
[2019-01-19] MEDS: HYDROcodone/APAP 5-325MG 1 EACH TAB PO PRN ×3 (02:05→15:19)
[2019-01-19] MEDS: LATANOPROST 0.005% OPHTH DROPS 2.5 ML BTL BOTH EYES SCH ×2 (02:56→20:31)
[2019-01-19] MEDS: HYDROmorphone 0.5 MG/0.5 ML SYRINGE IVP PRN ×5 (03:38→22:44)
[2019-01-19] MEDS: LEVOTHYROXINE 88 MCG TAB PO SCH (06:28)
[2019-01-19 07:28] LABS: Glucose,Whole Blood 186 mg/dL (75-99)
[2019-01-19] MEDS: METOPROLOL TARTRATE 50 MG TAB PO SCH ×2 (07:57→20:31)
[2019-01-19] MEDS: amLODIPine 10 MG TAB PO SCH (07:57)
[2019-01-19] MEDS: DOCUSATE 100 MG CAP PO SCH ×2 (07:57→20:31)
[2019-01-19] MEDS: POTASSIUM CHLORIDE ER 20 MEQ TAB.ER PO SCH (07:57)
[2019-01-19] MEDS: CILOSTAZOL 100 MG TAB PO SCH (07:57)
[2019-01-19] MEDS: ENOXAPARIN 40 MG/0.4 ML SYRINGE SQ SCH (07:58)
[2019-01-19] MEDS: INSULIN ASPART (NovoLOG) 100 UNIT/ML VIAL SQ SCH ×4 (07:58→20:31)
--- NOTE | 2019-01-19 10:36 | P.PN ---
Subjective Progress Note Date: 01/19/19 Principal diagnosis: Incisional hernia Patient doing well today. Pain is well-controlled. Would like more to eat. She has not gotten out of bed. Objective - Vital Signs Vital signs: Vital Signs Temp 98.5 F 01/19/19 07:00 Pulse 83 01/19/19 07:00 Resp 17 01/19/19 07:00 BP 121/67 01/19/19 07:00 Pulse Ox 98 01/19/19 07:00 Intake & Output 01/18/19 01/19/19 01/19/19 18:59 06:59 18:59 Intake Total 1200 1190 Output Total 50 210 Balance 1150 980 Intake: IV 1200 Intake, IV Titration 950 Amount Sodium Chloride 0.9% 1, 950 000 ml @ 0 mls/hr IV .[facility] ONE Rx#:[id number] Oral 240 Output: Drainage 30 210 Abdomen 30 210 Estimated Blood Loss 20 Other: Voiding Method Incontinent Toilet # Voids 1 - Exam Abdomen: Soft, nondistended, incision clean and dry, mild tenderness, drain noted - Labs CBC & Chem 7: 01/18/19 06:58 Labs: Abnormal Lab Results - Last 24 Hours (Table) 01/18/19 01/18/19 01/19/19 Range/Units 17:17 20:51 07:13 POC Glucose (mg/dL) 270 H 257 H 186 H (75-99) mg/dL Assessment and Plan (1) Incisional hernia Narrative/Plan: Gradually increase activity. Advance diet. Consult physical therapy. Current Visit: Yes Status: Acute Code(s): K43.2 - INCISIONAL HERNIA WITHOUT OBSTRUCTION OR GANGRENE SNOMED Code(s): 833769714
[2019-01-19] MEDS: AMIODARONE 100 MG TAB PO SCH (12:20)
[2019-01-19] MEDS: predniSONE 5 MG TAB PO SCH (12:20)
[2019-01-19 12:30] LABS: Glucose,Whole Blood 162 mg/dL (75-99)
[2019-01-19 17:25] LABS: Glucose,Whole Blood 184 mg/dL (75-99)
[2019-01-19 20:21] LABS: Glucose,Whole Blood 205 mg/dL (75-99)
[2019-01-19] MEDS: DULoxetine HCL 60 MG CAPSULE.DR PO SCH (20:31)
[2019-01-19] MEDS: ATORVASTATIN 40 MG TAB PO SCH (20:31)
[2019-01-19] MEDS: MAG HYDROX/AL HYDROX/SIMETH 30 ML CUP PO PRN (20:31)
[2019-01-19] MEDS: LACTATED RINGERS 1,000 ML IV SCH (20:34)
[2019-01-20] MEDS: HYDROcodone/APAP 5-325MG 1 EACH TAB PO PRN (01:23)
[2019-01-20] MEDS: HYDROmorphone 0.5 MG/0.5 ML SYRINGE IVP PRN ×6 (02:14→20:38)
--- NOTE | 2019-01-20 02:43 | P.PN ---
Subjective Progress Note Date: 01/19/19 Principal diagnosis: Status post incisional hernia repair Patient is a 73-year-old female with a known history of paroxysmal atrial fibrillation on anticoagulation with Eliquis, coronary artery disease status post CABG and history of cardiac catheterization, diabetes type 2 non-insulin- dependent, hypertension, hyperlipidemia, memory impairment and hypothyroidism as well as osteoarthritis and other multiple medical problems was admitted to the hospital for elective incisional hernia repair. Patient tolerated the procedure well. Postoperatively patient's blood pressure is in the lower side. Currently patient denied any complaints of chest pain or shortness of breath. No nausea vomiting or abdominal pain. Pain is controlled at this time. No headache or dizziness or lightheadedness. No fever or chills. Anticoagulation was held prior to surgery. 01/19/2019 Patient says that she feels better. Abdominal pain is well controlled. Patient otherwise did pass gas. Started on oral diet and will be advanced. No fever no chills. No nausea vomiting or abdominal pain. Patient can be started back on full anticoagulation for atrial fibrillation. Current medications reviewed. Objective - Vital Signs Vital signs: Vital Signs Temp 98.2 F 01/19/19 15:00 Pulse 80 01/19/19 16:00 Resp 16 01/19/19 16:00 BP 131/61 01/19/19 15:00 Pulse Ox 95 01/19/19 15:00 Intake & Output 01/19/19 01/19/19 01/20/19 06:59 18:59 06:59 Intake Total 1190 370 Output Total 210 80 Balance 980 290 Intake: Intake, IV Titration 950 Amount Sodium Chloride 0.9% 1, 950 000 ml @ 0 mls/hr IV .[facility] 3D ONE Rx#:[id number] Oral 240 370 Output: Drainage 210 80 Abdomen 210 80 Other: Voiding Method Toilet Toilet # Voids 1 1 - Exam PHYSICAL EXAMINATION: Patient is lying in the bed comfortably, no acute distress, awake alert and oriented.. HEENT: Normocephalic. Neck is supple. Pupils reactive. Nostrils clear. Oral cavity is moist. Ears reveal no drainage. Neck reveals no JVD, carotid bruits, or thyromegaly. CHEST EXAMINATION: Trachea is central. Symmetrical expansion. Bibasilar diminished air entry, Lung arias clear to auscultation and percussion. CARDIAC: Normal S1, S2 with no gallops. No murmurs ABDOMEN: Soft. Bowel sounds present. Midline surgical site bandaged.. No organomegaly. No abdominal bruits. Extremities: reveal no edema. No clubbing or cyanosis Neurologically awake, alert, oriented x3 with well-coordinated movements. No focal deficits noted Skin: No rash or skin lesions. Psychiatric: Coperative. Nonsuicidal Musculoskeletal: No joint swelling or deformity. Normal range of motion. - Labs CBC & Chem 7: 01/18/19 06:58 Labs: Abnormal Lab Results - Last 24 Hours (Table) 01/18/19 01/19/19 01/19/19 Range/Units 20:51 07:13 12:19 POC Glucose (mg/dL) 257 H 186 H 162 H (75-99) mg/dL 01/19/19 Range/Units 17:13 POC Glucose (mg/dL) 184 H (75-99) mg/dL Assessment and Plan Assessment: Status post incisional hernia repair postoperative day 1. Paroxysmal atrial fibrillation on anticoagulation in the form of Eliquis. Can be restarted as per surgery evaluation Coronary artery disease history of CABG Hypertension currently patient is hypotensive Hyperlipidemia Diabetes type 2 ppt-owwcajy-rerkythzp. Memory impairment Hypothyroidism Degenerative joint disease Chronic diarrhea Peripheral vascular disease History of colostomy bag and reversal Anxiety/depression Previous history of smoking Chronic back pain Osteoarthritis DVT prophylaxis. Currently on Lovenox Plan: Patient will be continued on pain management, bowel regimen and incentive spirometry. Monitor H&H. Encourage ambulation. Blood pressure medications in the form of Lasix and lisinopril have been held at this time due to low blood pressure. Can be started back on some blood pressure is more stable Patient is currently on Eliquis at home which can be restarted once the surgery is agreeable with it. Continue with beta blockers. Insulin sliding scale for blood sugar management. Continue with other home medications and follow closely. We will continue to follow with you Time with Patient: Greater than 30
[2019-01-20] MEDS: LEVOTHYROXINE 88 MCG TAB PO SCH (05:23)
[2019-01-20 07:07] LABS: Glucose,Whole Blood 129 mg/dL (75-99)
[2019-01-20 07:19] LABS: Basophils # (A) 0.1 k/uL (0-0.2); Basophils % (A) 1 %; Eosinophils # (A) 0.1 k/uL (0-0.7); Eosinophils % (A) 1 %; HCT 29.8 % (34.0-46.0); HGB 9.4 gm/dL (11.4-16.0); Hypochromasia Slight; Lymphocytes # (A) 1.9 k/uL (1.0-4.8); Lymphocytes % (A) 13 %; MCH 24.3 pg (25.0-35.0); MCHC 31.6 g/dL (31.0-37.0); Microcytosis Slight; Monocytes % (A) 7 %; Neutrophils # (A) 11.9 k/uL (1.3-7.7); Neutrophils % (A) 78 %; Platelet Count 440 k/uL (150-450); RBC 3.87 m/uL (3.80-5.40); RDW 15.8 % (11.5-15.5); WBC 15.3 k/uL (3.8-10.6)
[2019-01-20 07:32] LABS: African American GFR (CKD) >90 (>60 ml/min/1.73 sqM); Anion Gap 7 mmol/L; Blood Urea Nitrogen 7 mg/dL (7-17); Calcium 9.1 mg/dL (8.4-10.2); Carbon Dioxide 24 mmol/L (22-30); Chloride 109 mmol/L (98-107); Glucose 131 mg/dL (74-99); Potassium 3.8 mmol/L (3.5-5.1); Sodium 140 mmol/L (137-145)
[2019-01-20] MEDS: INSULIN ASPART (NovoLOG) 100 UNIT/ML VIAL SQ SCH ×4 (07:43→20:38)
[2019-01-20] MEDS: amLODIPine 10 MG TAB PO SCH (08:46)
[2019-01-20] MEDS: CILOSTAZOL 100 MG TAB PO SCH (08:46)
[2019-01-20] MEDS: METOPROLOL TARTRATE 50 MG TAB PO SCH ×2 (08:46→20:38)
[2019-01-20] MEDS: DOCUSATE 100 MG CAP PO SCH ×2 (08:46→20:38)
[2019-01-20] MEDS: ENOXAPARIN 40 MG/0.4 ML SYRINGE SQ SCH (08:46)
[2019-01-20] MEDS: POTASSIUM CHLORIDE ER 20 MEQ TAB.ER PO SCH (08:46)
--- NOTE | 2019-01-20 11:18 | P.PN ---
Subjective Progress Note Date: 01/20/19 Principal diagnosis: Incisional hernia Patient doing well today. Pain is improved. White blood cell count elevated at 15.3. Hemoglobin 9.4. Tolerating diet. Objective - Vital Signs Vital signs: Vital Signs Temp 98.2 F 01/20/19 07:00 Pulse 81 01/20/19 08:15 Resp 16 01/20/19 08:15 BP 148/73 01/20/19 07:00 Pulse Ox 98 01/20/19 01:48 Intake & Output 01/19/19 01/20/19 01/20/19 18:59 06:59 18:59 Intake Total 370 Output Total 80 120 Balance 290 -120 Intake: Oral 370 Output: Drainage 80 120 Abdomen 80 120 Other: Voiding Method Toilet Toilet # Voids 1 1 - Exam Abdomen: Soft, nondistended, mild tenderness, dressing clean and dry - Labs CBC & Chem 7: 01/20/19 06:22 01/20/19 06:22 Labs: Abnormal Lab Results - Last 24 Hours (Table) 01/19/19 01/19/19 01/19/19 Range/Units 12:19 17:13 20:09 WBC (3.8-10.6) k/uL Hgb (11.4-16.0) gm/dL Hct (34.0-46.0) % MCV (80.0-100.0) fL MCH (25.0-35.0) pg RDW (11.5-15.5) % Neutrophils # (1.3-7.7) k/uL Chloride (98-107) mmol/L Glucose (74-99) mg/dL POC Glucose (mg/dL) 162 H 184 H 205 H (75-99) mg/dL 01/20/19 01/20/19 01/20/19 Range/Units 06:22 06:22 06:54 WBC 15.3 H (3.8-10.6) k/uL Hgb 9.4 L (11.4-16.0) gm/dL Hct 29.8 L (34.0-46.0) % MCV 77.0 L (80.0-100.0) fL MCH 24.3 L (25.0-35.0) pg RDW 15.8 H (11.5-15.5) % Neutrophils # 11.9 H (1.3-7.7) k/uL Chloride 109 H (98-107) mmol/L Glucose 131 H (74-99) mg/dL POC Glucose (mg/dL) 129 H (75-99) mg/dL Assessment and Plan (1) Incisional hernia Narrative/Plan: Patient doing relatively well. Still not ambulating well. Will increase activity today. Monitor leukocytosis. Probable discharge tomorrow. Current Visit: Yes Status: Acute Code(s): K43.2 - INCISIONAL HERNIA WITHOUT OBSTRUCTION OR GANGRENE SNOMED Code(s): 266255382
[2019-01-20 12:25] LABS: Glucose,Whole Blood 166 mg/dL (75-99)
[2019-01-20] MEDS: ERGOCALCIFEROL 50,000 UNIT CAP PO SCH (12:51)
[2019-01-20] MEDS: predniSONE 5 MG TAB PO SCH (12:51)
[2019-01-20] MEDS: AMIODARONE 100 MG TAB PO SCH (12:51)
[2019-01-20 17:11] LABS: Glucose,Whole Blood 201 mg/dL (75-99)
[2019-01-20] MEDS: DULoxetine HCL 60 MG CAPSULE.DR PO SCH (20:38)
[2019-01-20] MEDS: LATANOPROST 0.005% OPHTH DROPS 2.5 ML BTL BOTH EYES SCH (20:38)
[2019-01-20] MEDS: ATORVASTATIN 40 MG TAB PO SCH (20:38)
[2019-01-20] MEDS: LACTATED RINGERS 1,000 ML IV SCH (20:41)
[2019-01-20 20:43] LABS: Glucose,Whole Blood 227 mg/dL (75-99)
[2019-01-21] MEDS: oxyCODONE ER 20 MG TAB.ER.12H PO PRN ×3 (00:06→22:45)
[2019-01-21] MEDS: HYDROmorphone 0.5 MG/0.5 ML SYRINGE IVP PRN ×2 (02:02→05:18)
--- NOTE | 2019-01-21 02:37 | P.PN ---
Subjective Progress Note Date: 01/20/19 Principal diagnosis: Status post incisional hernia repair Patient is a 73-year-old female with a known history of paroxysmal atrial fibrillation on anticoagulation with Eliquis, coronary artery disease status post CABG and history of cardiac catheterization, diabetes type 2 non-insulin- dependent, hypertension, hyperlipidemia, memory impairment and hypothyroidism as well as osteoarthritis and other multiple medical problems was admitted to the hospital for elective incisional hernia repair. Patient tolerated the procedure well. Postoperatively patient's blood pressure is in the lower side. Currently patient denied any complaints of chest pain or shortness of breath. No nausea vomiting or abdominal pain. Pain is controlled at this time. No headache or dizziness or lightheadedness. No fever or chills. Anticoagulation was held prior to surgery. 01/19/2019 Patient says that she feels better. Abdominal pain is well controlled. Patient otherwise did pass gas. Started on oral diet and will be advanced. No fever no chills. No nausea vomiting or abdominal pain. Patient can be started back on full anticoagulation for atrial fibrillation. 12/20/2018 Patient denied any complaints of chest pain or shortness of breath. Abdominal pain is much improved. Patient is able to have bowel movement today. Tolerating oral diet. No fever no chills. Patient does have leukocytosis with WBC count 15.3. Likely postsurgical inflammation. No evidence of infection not ed this time. Monitor CBC tomorrow. Encourage ambulation and incentive spirometry. Despite discharge in next 24-48 hours. Current medications reviewed. Objective - Vital Signs Vital signs: Vital Signs Temp 98.2 F 01/20/19 15:00 Pulse 73 01/20/19 16:00 Resp 16 01/20/19 16:00 BP 122/58 01/20/19 15:00 Pulse Ox 96 01/20/19 15:00 Intake & Output 01/19/19 01/20/19 01/20/19 18:59 06:59 18:59 Intake Total 370 710 Output Total 80 120 75 Balance 290 -120 635 Intake: Intake, IV Titration 160 Amount Lactated Ringers 1,000 ml 160 @ 20 mls/hr IV .Q24H WILL[facility] Rx#:[id number] Oral 370 550 Output: Drainage 80 120 75 Abdomen 80 120 75 Other: Voiding Method Toilet Toilet # Voids 1 1 3 - Exam PHYSICAL EXAMINATION: Patient is lying in the bed comfortably, no acute distress, awake alert and oriented.. HEENT: Normocephalic. Neck is supple. Pupils reactive. Nostrils clear. Oral cavity is moist. Ears reveal no drainage. Neck reveals no JVD, carotid bruits, or thyromegaly. CHEST EXAMINATION: Trachea is central. Symmetrical expansion. Bibasilar diminished air entry, Lung arias clear to auscultation and percussion. CARDIAC: Normal S1, S2 with no gallops. No murmurs ABDOMEN: Soft. Bowel sounds present. Midline surgical site bandaged.. No organomegaly. No abdominal bruits. Extremities: reveal no edema. No clubbing or cyanosis Neurologically awake, alert, oriented x3 with well-coordinated movements. No focal deficits noted Skin: No rash or skin lesions. Psychiatric: Coperative. Nonsuicidal Musculoskeletal: No joint swelling or deformity. Normal range of motion. - Labs CBC & Chem 7: 01/20/19 06:22 01/20/19 06:22 Labs: Abnormal Lab Results - Last 24 Hours (Table) 01/19/19 01/20/19 01/20/19 Range/Units 20:09 06:22 06:22 WBC 15.3 H (3.8-10.6) k/uL Hgb 9.4 L (11.4-16.0) gm/dL Hct 29.8 L (34.0-46.0) % MCV 77.0 L (80.0-100.0) fL MCH 24.3 L (25.0-35.0) pg RDW 15.8 H (11.5-15.5) % Neutrophils # 11.9 H (1.3-7.7) k/uL Chloride 109 H (98-107) mmol/L Glucose 131 H (74-99) mg/dL POC Glucose (mg/dL) 205 H (75-99) mg/dL 01/20/19 01/20/19 01/20/19 Range/Units 06:54 12:11 17:00 WBC (3.8-10.6) k/uL Hgb (11.4-16.0) gm/dL Hct (34.0-46.0) % MCV (80.0-100.0) fL MCH (25.0-35.0) pg RDW (11.5-15.5) % Neutrophils # (1.3-7.7) k/uL Chloride (98-107) mmol/L Glucose (74-99) mg/dL POC Glucose (mg/dL) 129 H 166 H 201 H (75-99) mg/dL Assessment and Plan Assessment: Status post incisional hernia repair postoperative day 2. Paroxysmal atrial fibrillation on anticoagulation in the form of Eliquis. Can be restarted as per surgery evaluation Coronary artery disease history of CABG Hypertension currently patient is hypotensive Hyperlipidemia Diabetes type 2 [id number]. Memory impairment Hypothyroidism Degenerative joint disease Chronic diarrhea Peripheral vascular disease History of colostomy bag and reversal Anxiety/depression Previous history of smoking Chronic back pain Osteoarthritis DVT prophylaxis. Currently on Lovenox Plan: Patient will be continued on pain management, bowel regimen and incentive spirometry. Monitor H&H. Encourage ambulation. Blood pressure medications in the form of Lasix and lisinopril have been held at this time due to low blood pressure. Can be started back on some blood pressure is more stable Patient is currently on Eliquis at home which can be restarted once the surgery is agreeable with it. Continue with beta blockers. Insulin sliding scale for blood sugar management. Continue with other home medications and follow closely. We will continue to follow with you Time with Patient: Greater than 30
[2019-01-21] MEDS: LEVOTHYROXINE 88 MCG TAB PO SCH (05:18)
[2019-01-21 06:51] LABS: Glucose,Whole Blood 128 mg/dL (75-99)
[2019-01-21] MEDS: INSULIN ASPART (NovoLOG) 100 UNIT/ML VIAL SQ SCH ×4 (07:16→20:16)
[2019-01-21] MEDS: APIXABAN 5 MG TAB PO SCH ×2 (07:31→20:16)
[2019-01-21] MEDS: amLODIPine 10 MG TAB PO SCH (07:31)
[2019-01-21] MEDS: METOPROLOL TARTRATE 50 MG TAB PO SCH ×2 (07:31→20:16)
[2019-01-21] MEDS: DOCUSATE 100 MG CAP PO SCH ×2 (07:31→20:16)
[2019-01-21] MEDS: CILOSTAZOL 100 MG TAB PO SCH (07:32)
[2019-01-21] MEDS: POTASSIUM CHLORIDE ER 20 MEQ TAB.ER PO SCH (07:32)
[2019-01-21 08:31] LABS: African American GFR (CKD) >90 (>60 ml/min/1.73 sqM); Anion Gap 7 mmol/L; Blood Urea Nitrogen 5 mg/dL (7-17); Calcium 8.9 mg/dL (8.4-10.2); Carbon Dioxide 22 mmol/L (22-30); Chloride 110 mmol/L (98-107); Glucose 133 mg/dL (74-99); Sodium 139 mmol/L (137-145)
[2019-01-21 09:54] LABS: Anisocytosis Slight; Basophils # (A) 0.1 k/uL (0-0.2); Basophils % (A) 1 %; Eosinophils # (A) 0.4 k/uL (0-0.7); Eosinophils % (A) 3 %; HCT 28.9 % (34.0-46.0); Hypochromasia Marked; Lymphocytes # (A) 2.3 k/uL (1.0-4.8); Lymphocytes % (A) 17 %; MCH 24.3 pg (25.0-35.0); MCHC 31.2 g/dL (31.0-37.0); MCV 77.9 fL (80.0-100.0); Mean Platelet Volume 7.3; Monocytes % (A) 7 %; Neutrophils # (A) 9.9 k/uL (1.3-7.7); Neutrophils % (A) 71 %; Platelet Count 406 k/uL (150-450); RBC 3.71 m/uL (3.80-5.40); RDW 16.1 % (11.5-15.5); WBC 13.8 k/uL (3.8-10.6)
[2019-01-21] MEDS: AMIODARONE 100 MG TAB PO SCH (11:30)
[2019-01-21] MEDS: predniSONE 5 MG TAB PO SCH (11:30)
[2019-01-21] MEDS: LACTATED RINGERS 1,000 ML IV SCH (11:30)
[2019-01-21 12:00] LABS: Glucose,Whole Blood 189 mg/dL (75-99)
--- NOTE | 2019-01-21 12:08 | P.DS ---
Providers Expected date of discharge: 01/21/19 Attending physician: Christopher Montoya Consults: 01/18/19 09:38 Consult Physician Routine Consulting Provider: Parveen Dietz Consult Reason/Comments: Medical management Do you want consulting provider notified?: Yes Primary care physician: [facility] Course: 73-year-old female who underwent open repair of incisional hernia with Dr. Jules tucker on 01/18/2019. Patient is doing well postoperatively. She is tolerating diet without nausea or vomiting. Pain controlled with oral medications. She has been up ambulating. Vital signs are stable. WBC trending downward. Afebrile. she is stable for discharge home today. Please see EMR for further hospital course details. Discharge diagnosis 1. Status post open repair of incisional hernia Nurse practitioner note has been reviewed by physician. Signing provider agrees with the documented findings, assessment, and plan of care. Patient Condition at Discharge: Stable Plan - Discharge Summary Discharge Rx Participant: Yes New Discharge Prescriptions: No Action Ergocalciferol (Vitamin D2) [Vitamin D2] 50,000 unit PO COHEN DULoxetine HCL [Cymbalta] 60 mg PO HS Atorvastatin [Lipitor] 40 mg PO HS Furosemide [Lasix] 40 mg PO BID Apixaban [Eliquis] 5 mg PO BID Latanoprost/Pf [Latanoprost 0.005% Eye Drop] 1 drop BOTH EYES HS Amiodarone [Cordarone] 100 mg PO 1200 amLODIPine [Norvasc] 10 mg PO QAM Potassium Chloride ER [K-Dur 20] 20 meq PO DAILY oxyCODONE ER [OxyCONTIN] 20 mg PO BID predniSONE 5 mg PO 1200 Metoprolol Tartrate [Lopressor] 50 mg PO BID Losartan Potassium 100 mg PO QAM Cilostazol [Pletal] 100 mg PO DAILY Levothyroxine Sodium [Tirosint] 88 mcg PO QAM metFORMIN HCL [Glucophage] 500 mg PO BID Loperamide HCl [Imodium] 2 mg PO DAILY Ondansetron [Zofran] 8 mg PO DAILY PRN PRN Reason: Nausea Discharge Medication List DULoxetine HCL [Cymbalta] 60 mg PO HS 12/14/16 [History] Ergocalciferol (Vitamin D2) [Vitamin D2] 50,000 unit PO COHEN 12/14/16 [History] Atorvastatin [Lipitor] 40 mg PO HS 01/24/18 [History] Amiodarone [Cordarone] 100 mg PO 1200 03/02/18 [History] Apixaban [Eliquis] 5 mg PO BID 03/02/18 [History] Furosemide [Lasix] 40 mg PO BID 03/02/18 [History] Latanoprost/Pf [Latanoprost 0.005% Eye Drop] 1 drop BOTH EYES HS 03/02/18 [History] Cilostazol [Pletal] 100 mg PO DAILY 11/15/18 [History] Levothyroxine Sodium [Tirosint] 88 mcg PO QAM 11/15/18 [History] Losartan Potassium 100 mg PO QAM 11/15/18 [History] Metoprolol Tartrate [Lopressor] 50 mg PO BID 11/15/18 [History] Potassium Chloride ER [K-Dur 20] 20 meq PO DAILY 11/15/18 [History] amLODIPine [Norvasc] 10 mg PO QAM 11/15/18 [History] metFORMIN HCL [Glucophage] 500 mg PO BID 11/15/18 [History] oxyCODONE ER [OxyCONTIN] 20 mg PO BID 11/15/18 [History] predniSONE 5 mg PO 1200 11/15/18 [History] Loperamide HCl [Imodium] 2 mg PO DAILY 01/17/19 [History] Ondansetron [Zofran] 8 mg PO DAILY PRN 01/17/19 [History] Follow up Appointment(s)/Referral(s): Christopher Montoya MD [STAFF PHYSICIAN] - 01/24/19 3:10 pm
[2019-01-21] MEDS: METOCLOPRAMIDE 5 MG/ML 2 ML VIAL IVP PRN ×2 (14:54→22:45)
[2019-01-21 14:56] LABS: Glucose,Whole Blood 363 mg/dL (75-99)
[2019-01-21 17:07] LABS: Glucose,Whole Blood 433 mg/dL (75-99)
[2019-01-21] MEDS ORDERED: INSULIN ASPART (NovoLOG) 100 UNIT/ML VIAL SQ ONE (17:16)
--- NOTE | 2019-01-21 17:35 | P.PN ---
<Mer Licea - Last Filed: 01/21/19 17:31> Progress Note - Text Progress Note Date: 01/21/19 Patients discharge held secondary to reported anxiety attack this afternoon. Anxiety attack resolved on its own without the need for medication. Nursing also reports some lethargy this afternoon. Chris DUNN as patient has been receiving multiple narcotics. She will continue to receive her oxycontin. Tylenol also ordered PRN. Nursing to utilize non-pharmacological pain management strategies such as ice, rest, relaxation, etc. Patients blood sugar this afternoon greater than 400. Patient on Novolog scale ACHS. Additional 10 units ordered this afternoon. Resume Metformin. Apparently, patient has been drinking regular diet today. Change diet to consistent carb diet. Do not give patient regular pop, juice, or other sugary beverages. Will re-evaluate patient tomorrow and anticipate discharge home tomorrow. <Christopher Montoya - Last Filed: 01/24/19 10:21> Progress Note - Text Patient's abdominal pain was due to acute bleeding. Patient's MASTER drain was serosanguineous. The drain output had changed. She had very minimal output before. The patient's discharge will be held. She will have her labs rechecked in the a.m.
[2019-01-21] MEDS: DULoxetine HCL 60 MG CAPSULE.DR PO SCH (20:16)
[2019-01-21] MEDS: LATANOPROST 0.005% OPHTH DROPS 2.5 ML BTL BOTH EYES SCH (20:16)
[2019-01-21] MEDS: ATORVASTATIN 40 MG TAB PO SCH (20:16)
[2019-01-21] MEDS: SODIUM CHLORIDE 0.9% 1,000 ML IV SCH (20:17)
[2019-01-21 20:18] LABS: Glucose,Whole Blood 304 mg/dL (75-99)
[2019-01-21] MEDS: ONDANSETRON 4 MG/2 ML VIAL IVP PRN (20:24)
[2019-01-21 20:47] LABS: Glucose,Whole Blood 307 mg/dL (75-99)
[2019-01-21] MEDS ORDERED: metFORMIN 500 MG TAB PO SCH (21:00)
[2019-01-21] MEDS: ACETAMINOPHEN TAB 325 MG TAB PO PRN (23:52)
--- NOTE | 2019-01-21 23:56 | P.PN ---
Progress Note - Text Progress Note Date: 01/21/19 Interval history: Patient is a 73-year-old female with a known history of paroxysmal atrial fibri llation on anticoagulation with Eliquis, coronary artery disease status post CABG and history of cardiac catheterization, diabetes type 2 [id number], hypertension, hyperlipidemia, memory impairment and hypothyroidism as well as osteoarthritis and other multiple medical problems was admitted to the hospital for elective incisional hernia repair. Patient tolerated the procedure well. Today-diet is being advanced. Pain control. No new issues. No nausea vomiting. Review of systems: Was done for constitutional, cardiovascular, GI, pulmonary. relevant finding as above Active Medications Acetaminophen (Tylenol Tab) 650 mg PO Q4HR PRN PRN Reason: Fever and/ or Mild Pain Al Hydroxide/Mg Hydroxide (Maalox) 30 ml PO Q4HR PRN PRN Reason: GI Upset Last Admin: 01/19/19 20:31 Dose: 30 ml Documented by: Amiodarone HCl (Cordarone) 100 mg PO 1200 [facility] Last Admin: 01/21/19 11:30 Dose: 100 mg Documented by: Amlodipine Besylate (Norvasc) 10 mg PO QAM [facility] Last Admin: 01/21/19 07:31 Dose: 10 mg Documented by: Apixaban (Eliquis) 5 mg PO BID [facility] Last Admin: 01/21/19 20:16 Dose: 5 mg Documented by: Atorvastatin Calcium (Lipitor) 40 mg PO HS [facility] Last Admin: 01/21/19 20:16 Dose: 40 mg Documented by: Cilostazol (Pletal) 100 mg PO DAILY [facility] Last Admin: 01/21/19 07:32 Dose: 100 mg Documented by: Docusate Sodium (Colace) 100 mg PO BID [facility] Last Admin: 01/21/19 20:16 Dose: 100 mg Documented by: Duloxetine HCl (Cymbalta) 60 mg PO HS [facility] Last Admin: 01/21/19 20:16 Dose: 60 mg Documented by: Ergocalciferol (Vitamin D2) 50,000 unit PO COHEN [facility] Last Admin: 01/20/19 12:51 Dose: 50,000 unit Documented by: Sodium Chloride (Saline 0.9%) 1,000 mls @ 50 mls/hr IV .Q20H [facility] Last Admin: 01/21/19 20:17 Dose: 50 mls/hr Documented by: Insulin Aspart (Novolog) 0 unit SQ ACHS [facility]; Protocol Last Admin: 01/21/19 20:16 Dose: 5 unit Documented by: Latanoprost (Xalatan 0.005%) 1 drops BOTH EYES HS [facility] Last Admin: 01/21/19 20:16 Dose: 1 drops Documented by: Levothyroxine Sodium (Synthroid) 88 mcg PO 0630 [facility] Last Admin: 01/21/19 05:18 Dose: 88 mcg Documented by: Lidocaine HCl (.Xylocaine 1% Inj (10mg/Ml) For Iv Start) 0.1 ml INTRADERMA PER PROTOCOL PRN PRN Reason: IV Start Last Admin: 01/18/19 06:57 Dose: 0.1 ml Documented by: Metformin HCl (Glucophage) 500 mg PO BID [facility] Last Admin: 01/21/19 20:16 Dose: 500 mg Documented by: Metoclopramide HCl (Reglan) 10 mg IVP Q6H PRN PRN Reason: Nausea And Vomiting Last Admin: 01/21/19 22:45 Dose: 10 mg Documented by: Metoprolol Tartrate (Lopressor) 50 mg PO BID [facility] Last Admin: 01/21/19 20:16 Dose: 50 mg Documented by: Naloxone HCl (Narcan) 0.2 mg IV Q2M PRN PRN Reason: Opioid Reversal Ondansetron HCl (Zofran) 4 mg IVP Q8HR PRN PRN Reason: Nausea And Vomiting Last Admin: 01/21/19 20:24 Dose: 4 mg Documented by: Oxycodone HCl (Oxycontin 20mg E.R.) 20 mg PO BID PRN PRN Reason: Moderate Pain Control Last Admin: 01/21/19 22:45 Dose: 20 mg Documented by: Potassium Chloride (K-Dur 20) 20 meq PO DAILY [facility] Last Admin: 01/21/19 07:32 Dose: 20 meq Documented by: Prednisone () 5 mg PO 1200 [facility] Last Admin: 01/21/19 11:30 Dose: 5 mg Documented by: On examination: VITAL SIGNS: 98.2, 73, 16, 122/58, 96% room air GENERAL APPEARANCE: Laying in bed, comfortable. HEENT: Normal external appearance of nose and ear. Oral cavity normal EYES: Pupils equal. Conjunctiva normal. NECK: JVD not raised. Mass not palpable. RESPIRATORY: Respiratory effort normal. Lungs clear to auscultation. CARDIOVASCULAR: First and second sounds normal. No edema. ABDOMEN: Soft. Liver and spleen not palpable. Minimal tenderness. No mass palpable. PSYCHIATRY: Alert and oriented x3. Mood and affect normal. Investigations: [id number], 363 Assessment: -Incisional hernia repair -Paroxysmal atrial fibrillation on eliquis -Coronary artery disease and history of CABG -Essential hypertension -Hyperlipidemia -Diabetes mellitus type 2 -Hypothyroidism -Primary osteoarthritis -Peripheral arterial disease -Anxiety depression otherwise specified Plan: Continue current medication plan. We'll keep a close and patient's sugars. Accu-Cheks. We'll increase metformin 1000 mg twice a day. We'll also add Glucotrol 2.5 mg twice a day
[2019-01-22] MEDS: LEVOTHYROXINE 88 MCG TAB PO SCH (04:36)
[2019-01-22] MEDS: ACETAMINOPHEN TAB 325 MG TAB PO PRN (04:36)
[2019-01-22] MEDS ORDERED: HUMAN PROTHROMBIN COMPLX 500 UNIT/16 ML VIAL IV ONE (06:59)
[2019-01-22 07:07] LABS: Glucose,Whole Blood 157 mg/dL (75-99)
[2019-01-22] MEDS: amLODIPine 10 MG TAB PO SCH (07:07)
[2019-01-22] MEDS: APIXABAN 5 MG TAB PO SCH (07:07)
[2019-01-22] MEDS: POTASSIUM CHLORIDE ER 20 MEQ TAB.ER PO SCH (07:07)
[2019-01-22] MEDS: metFORMIN 500 MG TAB PO SCH ×2 (07:07→17:17)
[2019-01-22] MEDS: glipiZIDE 5 MG TAB PO SCH ×2 (07:07→17:18)
[2019-01-22] MEDS: MAG HYDROX/AL HYDROX/SIMETH 30 ML CUP PO PRN (07:07)
[2019-01-22] MEDS: METOPROLOL TARTRATE 50 MG TAB PO SCH ×2 (07:07→21:40)
[2019-01-22] MEDS: INSULIN ASPART (NovoLOG) 100 UNIT/ML VIAL SQ SCH ×4 (07:07→21:11)
[2019-01-22] MEDS: CILOSTAZOL 100 MG TAB PO SCH (07:08)
[2019-01-22] MEDS: DOCUSATE 100 MG CAP PO SCH (07:09)
[2019-01-22 07:51] LABS: Calcium 8.5 mg/dL (8.4-10.2)
[2019-01-22 07:56] LABS: Anisocytosis Slight; HCT 22.1 % (34.0-46.0); Hypochromasia Marked; MCH 24.6 pg (25.0-35.0); MCHC 31.1 g/dL (31.0-37.0); Mean Platelet Volume 7.6; Platelet Count 474 k/uL (150-450); RDW 17.2 % (11.5-15.5); WBC 28.4 k/uL (3.8-10.6)
[2019-01-22 08:11] LABS: HGB 6.9 gm/dL (11.4-16.0)
[2019-01-22] MEDS ORDERED: Kcentra PER PHARMACY 1 EACH MISC MISCELLANE PRN (08:27)
[2019-01-22 08:40] LABS: Polychromasia Present
[2019-01-22 08:49] LABS: Band Neutrophils % 1 %; Eosinophils # (M) 0.28 k/uL (0-0.7); Lymphocytes # (M) 3.12 k/uL (1.0-4.8); Metamyelocytes # (M) 0.57 k/uL (0); Metamyelocytes % 2 %; Monocytes # (M) 0.57 k/uL (0-1.0); Myelocytes # (M) 0.85 k/uL (0); Myelocytes % 3 %; Neutrophils % (M) 82 %; Nucleated Red Blood Cells 0 /100 WBC (0-0); Total Cells Counted 200
[2019-01-22] MEDS ORDERED: SODIUM CHLORIDE 0.9% 500 ML 500 ML IV ONE (08:55)
[2019-01-22] MEDS: IOPAMIDOL CONTRAST (ORAL USE) VIAL PO PRN ×2 (09:02→10:03)
[2019-01-22] MEDS: PIPERACILLIN-TAZOBACTAM 3.375 GM in SODIUM CHLORIDE 0.9% 100 ML IVPB SCH ×2 (09:02→16:17)
--- NOTE | 2019-01-22 10:14 | P.PN ---
Subjective Progress Note Date: 01/22/19 CHIEF COMPLAINT: Incisional hernia HISTORY OF PRESENT ILLNESS: Patient is s/p open incisional hernia repair performed on 10/18/18. Patient was doing well yesterday morning. However, in the evening she apparently told the nurse she was having a panic attack and was also having periods of lethargy. Dr. Montoya cancelled discharge home. Patient examined this morning the bedside. Patient appears pale. She states her pain was uncontrolled overnight but it is improving this morning. MASTER drain with sanguinous drainage. 480 mL of drainage over the last 12 hours and 740 mL over the last 24 hours. Hemoglobin this morning dropped from 9.0-6.9. WBC increased to 28.4. Lactic acid 2.3. BP this morning is 93/50. Afebrile. PHYSICAL EXAM: VITAL SIGNS: Reviewed. GENERAL: Well-developed in no acute distress. Pale. HEENT: No sclera icterus. Extraocular movements grossly intact. Moist buccal mucosa. Head is atraumatic, normocephalic. ABDOMEN: Obese. Soft. Nondistended. Appropriate surgical tenderness. Dressing to midline with shadowing present. MASTER drain with sanguinous drainage. Abdominal binder present. NEUROLOGIC: Alert and oriented. Cranial nerves II through XII grossly intact. ASSESSMENT: 1. Status post open repair of incisional hernia 2. Acute blood loss anemia PLAN: -Patient has been receiving Eliquis post op for history of paroxysmal atrial fibrillation. Patient did receive her dose this morning. Will discontinue Eliquis. SCDs for DVT prophylaxis. -Transfuse 1 unit RBC. CBC Q6 hours x 4 -CT abdomen pelvis with oral contrast to be completed TYSON -IV fluids were ordered at 50cc/hr. Increase maintenance IV fluids to 100 mL an hour. 500 mL bolus 1 -Do not suspect leukocytosis is infectious in etiology. However, will begin Zosyn 3.375q 8 hours. Monitor WBC -Change diet to NPO in case patient requires surgical intervention for acute bleeding -Kcentra ordered per Dr. Montoya. Spoke with Perla Haney, pharmacy aide, who states medication can not be given on 4S and patient must be transferred to ICU. Spoke with Dr. Montoya who states he would still like patient to receive Kcentra and is okay with patient being transferred to ICU for infusion. Pharmacy states that [facility] can not administer medication on 4S. Spoke with ICU charge nurse and notified of transfer order. Nurse practitioner note has been reviewed by physician. Signing provider agrees with the documented findings, assessment, and plan of care. Objective - Vital Signs Vital signs: Vital Signs Temp 98 F 01/22/19 07:00 Pulse 74 01/22/19 07:00 Resp 12 01/22/19 07:00 BP 93/50 01/22/19 07:00 Pulse Ox 98 01/22/19 07:00 Intake & Output 01/21/19 01/22/19 01/22/19 18:59 06:59 18:59 Intake Total 450 150 Output Total 260 480 90 Balance -260 -30 60 Intake: Intake, IV Titration 450 Amount Sodium Chloride 0.9% 1, 450 000 ml @ 50 mls/hr IV . Q20H [facility] Rx#:[id number] Oral 150 Output: Drainage 260 480 90 Abdomen 260 480 90 Other: # Voids 3 2 # Bowel Movements 2 - Labs CBC & Chem 7: 01/22/19 06:39 01/22/19 06:39 Labs: Abnormal Lab Results - Last 24 Hours (Table) 01/21/19 01/21/19 01/21/19 Range/Units 11:48 14:44 16:53 WBC (3.8-10.6) k/uL RBC (3.80-5.40) m/uL Hgb (11.4-16.0) gm/dL Hct (34.0-46.0) % MCV (80.0-100.0) fL MCH (25.0-35.0) pg RDW (11.5-15.5) % Plt Count (150-450) k/uL Neutrophils # (Manual) (1.3-7.7) k/uL Metamyelocytes # (Man) (0) k/uL Myelocytes # (Manual) (0) k/uL Sodium (137-145) mmol/L Carbon Dioxide (22-30) mmol/L Glucose (74-99) mg/dL POC Glucose (mg/dL) 189 H 363 H 433 H (75-99) mg/dL Plasma Lactic Acid Frederick (0.7-2.0) mmol/L Crossmatch 01/21/19 01/21/19 01/22/19 Range/Units 20:07 20:35 06:39 WBC 28.4 H (3.8-10.6) k/uL RBC 2.80 L (3.80-5.40) m/uL Hgb 6.9 L* D (11.4-16.0) gm/dL Hct 22.1 L (34.0-46.0) % MCV 79.0 L (80.0-100.0) fL MCH 24.6 L (25.0-35.0) pg RDW 17.2 H (11.5-15.5) % Plt Count 474 H (150-450) k/uL Neutrophils # (Manual) 23.50 H (1.3-7.7) k/uL Metamyelocytes # (Man) 0.57 H (0) k/uL Myelocytes # (Manual) 0.85 H (0) k/uL Sodium (137-145) mmol/L Carbon Dioxide (22-30) mmol/L Glucose (74-99) mg/dL POC Glucose (mg/dL) 304 H 307 H (75-99) mg/dL Plasma Lactic Acid Frederick (0.7-2.0) mmol/L Crossmatch 01/22/19 01/22/19 01/22/19 Range/Units 06:39 06:54 08:31 WBC (3.8-10.6) k/uL RBC (3.80-5.40) m/uL Hgb (11.4-16.0) gm/dL Hct (34.0-46.0) % MCV (80.0-100.0) fL MCH (25.0-35.0) pg RDW (11.5-15.5) % Plt Count (150-450) k/uL Neutrophils # (Manual) (1.3-7.7) k/uL Metamyelocytes # (Man) (0) k/uL Myelocytes # (Manual) (0) k/uL Sodium 135 L (137-145) mmol/L Carbon Dioxide 19 L (22-30) mmol/L Glucose 136 H (74-99) mg/dL POC Glucose (mg/dL) 157 H (75-99) mg/dL Plasma Lactic Acid Frederick (0.7-2.0) mmol/L Crossmatch See Detail 01/22/19 Range/Units 08:31 WBC (3.8-10.6) k/uL RBC (3.80-5.40) m/uL Hgb (11.4-16.0) gm/dL Hct (34.0-46.0) % MCV (80.0-100.0) fL MCH (25.0-35.0) pg RDW (11.5-15.5) % Plt Count (150-450) k/uL Neutrophils # (Manual) (1.3-7.7) k/uL Metamyelocytes # (Man) (0) k/uL Myelocytes # (Manual) (0) k/uL Sodium (137-145) mmol/L Carbon Dioxide (22-30) mmol/L Glucose (74-99) mg/dL POC Glucose (mg/dL) (75-99) mg/dL Plasma Lactic Acid Frederick 2.9 H* (0.7-2.0) mmol/L Crossmatch
[2019-01-22] MEDS ORDERED: HUMAN PROTHROMBIN COMPLX IV ONE (11:30)
--- NOTE | 2019-01-22 11:58 | CT ---
EXAMINATION TYPE: CT abdomen pelvis wo con DATE OF EXAM: 01/22/2019 COMPARISON: 03/02/2018 HISTORY: 73-year-old female S/P hernia repair, increasing blood loss CT DLP: 844.9 mGycm. Automated exposure control for dose reduction was used. TECHNIQUE: Contiguous axial scanning of the abdomen and pelvis without IV contrast. Coronal and sagit campbell reconstructions performed. FINDINGS: Heart normal size without pericardial effusion. Low density blood pool can be seen in the setting of clinically significant anemia. Ectatic descendin g thoracic aorta at 2.9 cm. Previous small left effusion has resolved. Multiple small calcified granulomas within the liver. Cholecystectomy clips. Noncontrast appearance of the right kidney, atrophic pancreas grossly. Thickening of the left gland without discrete nodularity. Punctate 2 mm nonobstructive left renal shannan culus. Tiny subcentimeter cortical hypodensity seen in the left kidney. No mesenteric or retroperitoneal lymphadenopathy. Previous perisplenic fluid collections and larger anterior left upper quadrant fluid collection has r esolved in the interval. Moderate atherosclerotic calcifications throughout the abdominal aorta and iliac arteries. Postsurgical changes along the ventral abdominal wall prior hernia repair. There is suggestion of shea e increased anterior bulging along the linea alba as compared to prior exam. Thickening of the bilateral rectus abdominis muscles. Surgical drain is present within the anterior s ubcutaneous adipose with new accumulating hematoma along the course of the surgical drain measuring u p to 1.9 cm thick by 13.2 cm craniocaudal and up to 23.2 cm wide. Anterior skin andrei. Scattered tiny foci of soft tissue air in the anterior subcutaneous os likely related to recent surgery. Bladder is distended. Uterus anteverted. No abnormal fluid collection in the pelvis or pelvic lymphad enopathy. Degenerative changes throughout the lumbar spine. No osseous destructive process. Grade 1 anterolisth esis L4-L5. IMPRESSION: 1. Postsurgical changes of ventral abdominal wall hernia repair. There is new (as compared to 018) anterior bulging along the linea alba that could reflect some diastases. There has been closure of the previous right abdominal ostomy. 2. There is also now mild thickening of the rectus abdominis muscles suggesting mild diffuse intramu scular hemorrhage. Surgical drain in place along the anterior subcutaneous adipose with hematoma elissa g the course of the surgical drain measuring up to 23.2 x 13.2 x 1.9 cm. 3. As compared to 03/02/2018, the previous small perisplenic collections and left upper quadrant flui d collection have resolved. 4. The patient's laparotomy appears relatively recent with anterior skin andrei and scattered subcu taneous foci of air.
[2019-01-22 12:00] LABS: Glucose,Whole Blood 128 mg/dL (75-99)
[2019-01-22] MEDS: predniSONE 5 MG TAB PO SCH (12:19)
[2019-01-22] MEDS: AMIODARONE 100 MG TAB PO SCH (12:19)
[2019-01-22] MEDS: oxyCODONE ER 20 MG TAB.ER.12H PO PRN (12:20)
--- NOTE | 2019-01-22 12:31 | P.CNPUL ---
History of Present Illness Consult date: 01/22/19 Requesting physician: Christopher Montoya Reason for consult: other Chief complaint: Acute bleeding from a MASTER drain status post open incisional hernia repair History of present illness: This is a 73-year-old white female patient with past medical history of atrial fibrillation on Eliquis, coronary artery disease with previous bypass grafting, diabetes mellitus type 2, hypertension, hyperlipidemia, osteoarthritis, hypothyroidism, who underwent open incisional hernia repair on 01/18/2019. Patient had initially developed complications related to bowel ischemia following her bypass surgery, sustained acute perforated viscus and necrosis of the transverse and right colon, and underwent right colectomy, transverse colectomy and takedown of splenic flexure with ileostomy. Subsequently patient had her ostomy reversed in May 2018. She did develop an incisional hernia, and hence patient underwent the above-mentioned open incisional repair by Dr. Montoya on 01/18/2019. Her Eliquis was restarted on postop day 1. Apparently overnight patient developed increased sinus output from her MASTER drain that is placed in the subcutaneous tissues near her surgical incision, and had 500 mL of sanguinous output overnight with additional 800 on day shift today. Her Eliquis was placed on hold, she did have a hemoglobin drop of 2.1 g since yesterday from a 9.0-6.9. She has been transfused with 3 units of packed red blood cells, and her anticoagulation is being reversed with prothrombin complex agent K-Centra. She is awake and alert, in no acute distress, hemodynamically patient is stable, she is not tachycardic, she is currently in normal sinus rhythm with a rate of 74. She is on room air, denies any shortness of breath or chest pain. Her abdomen is soft, and the MASTER drain continues to put out then sanguinous drainage. The K-Centra is being infused, mentation is appropriate, he denies any acute abdominal pain. And we're asked to see the patient for critical care management. Review of Systems All systems: negative Constitutional: Denies chills, Denies fever Eyes: denies blurred vision, denies pain Ears, nose, mouth and throat: Denies headache, Denies sore throat Cardiovascular: Denies chest pain, Denies shortness of breath Respiratory: Denies cough Gastrointestinal: Denies abdominal pain, Denies diarrhea, Denies nausea, Denies vomiting Genitourinary: Denies dysuria, Denies hematuria Musculoskeletal: Denies myalgias Integumentary: Denies pruritus, Denies rash Neurological: Reports weakness, Denies numbness Psychiatric: Reports anxiety, Denies depression Endocrine: Denies fatigue, Denies weight change Past Medical History Past Medical History: Atrial Fibrillation, Coronary Artery Disease (CAD), Diabetes Mellitus, Hyperlipidemia, Hypertension, Memory Impairment, Musculoskeletal Disorder, Osteoarthritis (OA), Thyroid Disorder, Vascular Disorder Additional Past Medical History / Comment(s): Pt. states poor circulation in RLE due to an artificial bypass. Chronic back pain, bilateral shoulder problems due to Degenerative Joint Disease/arthritis. Chronic diarrhea. Chronic high WBC count. Patient states "Dr Montoya aware, waiting to hear if he will do surgery or not due to WBC level, also having a repeat EKG today, ordered by Dr Montoya." "Forgetful." Vertigo at times. History of Any Multi-Drug Resistant Organisms: ESBL Date of last positivie culture/infection: 03/04/18 MDRO Source:: BODY FLUID ASPIRATE Past Surgical History: Appendectomy, Bowel Resection, Breast Surgery, Cholecystectomy, Coronary Bypass/CABG, Heart Catheterization, Joint Replacement, Orthopedic Surgery Additional Past Surgical History / Comment(s): "Rt leg sx, artificial artery". Bilateral knee replacements. Rt rotator cuff, left breast surgery for benign tumor. Epidurals to lower back. Quad CABG 12-11-17, 12/20/17 colectomy/ileostomy- colostomy and reversal, picc line placement/removal. Past Anesthesia/Blood Transfusion Reactions: No Reported Reaction Past Psychological History: Anxiety, Depression Additional Psychological History / Comment(s): lives in [place] Smoking Status: Former smoker Past Alcohol Use History: None Reported Additional Past Alcohol Use History / Comment(s): started smoking 1965 Quit smoking in 2007, smoked 1 PPD. Past Drug Use History: None Reported - Past Family History Mother Family Medical History: Cancer Additional Family Medical History / Comment(s): Uterine cancer. Father Family Medical History: Congestive Heart Failure (CHF) Medications and Allergies Home Medications Medication Instructions Recorded Confirmed Type DULoxetine HCL [Cymbalta] 60 mg PO HS 12/14/16 01/17/19 History Ergocalciferol (Vitamin D2) 50,000 unit PO COHEN 12/14/16 01/17/19 History [Vitamin D2] Atorvastatin [Lipitor] 40 mg PO HS 01/24/18 01/17/19 History Amiodarone [Cordarone] 100 mg PO 1200 03/02/18 01/17/19 History Apixaban [Eliquis] 5 mg PO BID 03/02/18 01/17/19 History Furosemide [Lasix] 40 mg PO BID 03/02/18 01/17/19 History Latanoprost/Pf [Latanoprost 0.005% 1 drop BOTH EYES HS 03/02/18 01/17/19 History Eye Drop] Cilostazol [Pletal] 100 mg PO DAILY 11/15/18 01/17/19 History Levothyroxine Sodium [Tirosint] 88 mcg PO QAM 11/15/18 01/17/19 History Losartan Potassium 100 mg PO QAM 11/15/18 01/17/19 History Metoprolol Tartrate [Lopressor] 50 mg PO BID 11/15/18 01/17/19 History Potassium Chloride ER [K-Dur 20] 20 meq PO DAILY 11/15/18 01/17/19 History amLODIPine [Norvasc] 10 mg PO QAM 11/15/18 01/17/19 History metFORMIN HCL [Glucophage] 500 mg PO BID 11/15/18 01/17/19 History oxyCODONE ER [OxyCONTIN] 20 mg PO BID 11/15/18 01/17/19 History predniSONE 5 mg PO 1200 11/15/18 01/17/19 History Loperamide HCl [Imodium] 2 mg PO DAILY 01/17/19 01/17/19 History Ondansetron [Zofran] 8 mg PO DAILY PRN 01/17/19 01/17/19 History Allergies Allergy/AdvReac Type Severity Reaction Status Date / Time No Known Allergies Allergy Verified 01/17/19 10:41 Physical Exam Vitals: Vital Signs Temp Pulse Pulse Resp BP BP Pulse Ox 01/22/19 11:08 97.6 F 71 12 124/57 98 01/22/19 10:38 98.6 F 71 16 104/57 01/22/19 10:28 98.5 F 72 14 120/70 98 01/22/19 07:00 98 F 74 12 93/50 98 01/22/19 01:53 98.3 F 84 19 125/66 99 09/23/19 19:18 98.1 F 83 18 105/56 100 01/21/19 15:00 98 F 99 12 98/68 100 Intake and Output 01/21/19 01/22/19 01/22/19 22:59 06:59 14:59 Intake Total 450 150 Output Total 440 270 90 Balance -440 180 60 Intake: Intake, IV Titration 450 Amount Sodium Chloride 0.9% 1, 450 000 ml @ 50 mls/hr IV . Q20H [facility] Rx#:[id number] Oral 150 Blood Product 0 Rc As-1 Unit 0 [id number] Output: Drainage 440 270 90 Abdomen 440 270 90 Other: # Voids 1 2 # Bowel Movements 1 2 GENERAL EXAM: Alert, very pleasant, 73-year-old obese white female, on room air, resting comfortably in bed, appears slightly pale, but in no acute distress HEAD: Normocephalic/atraumatic. EYES: Normal reaction of pupils, equal size. Conjunctiva pink, sclera white. NOSE: Clear with pink turbinates. THROAT: No erythema or exudates. NECK: No masses, no JVD, no thyroid enlargement, no adenopathy. CHEST: No chest wall deformity. Symmetrical expansion. LUNGS: Equal air entry with no crackles, wheeze, rhonchi or dullness. CVS: Regular rate and rhythm, normal S1 and S2, no gallops, no murmurs, no rubs ABDOMEN: Soft, nontender. No hepatosplenomegaly, normal bowel sounds, no guarding or rigidity. Mildly tender, but no acute distress, midline abdominal dressing clean dry and intact, with small amount of old sanguinous drainage, MASTER drain with large sanguinous output and abdominal binder is present EXTREMITIES: No clubbing, no edema, no cyanosis, 2+ pulses and upper and lower extremities. MUSCULOSKELETAL: Muscle strength and tone normal. SPINE: No scoliosis or deformity SKIN: No rashes CENTRAL NERVOUS SYSTEM: Alert and oriented -3. No focal deficits, tone is normal in all 4 extremities. PSYCHIATRIC: Alert and oriented -3. Appropriate affect. Intact judgment and insight. Results - Laboratory Findings CBC and BMP: 01/22/19 06:39 01/22/19 06:39 Abnormal lab findings: Abnormal Labs 01/18/19 01/18/19 01/18/19 06:58 06:59 09:54 WBC RBC Hgb Hct MCV MCH RDW Plt Count Neutrophils # Neutrophils # (Manual) Metamyelocytes # (Man) Myelocytes # (Manual) Sodium Chloride Carbon Dioxide BUN Glucose 170 H POC Glucose (mg/dL) 165 H 184 H Plasma Lactic Acid Frederick Crossmatch 01/18/19 01/18/19 01/19/19 17:17 20:51 07:13 WBC RBC Hgb Hct MCV MCH RDW Plt Count Neutrophils # Neutrophils # (Manual) Metamyelocytes # (Man) Myelocytes # (Manual) Sodium Chloride Carbon Dioxide BUN Glucose POC Glucose (mg/dL) 270 H 257 H 186 H Plasma Lactic Acid Frederick Crossmatch 01/19/19 01/19/19 01/19/19 12:19 17:13 20:09 WBC RBC Hgb Hct MCV MCH RDW Plt Count Neutrophils # Neutrophils # (Manual) Metamyelocytes # (Man) Myelocytes # (Manual) Sodium Chloride Carbon Dioxide BUN Glucose POC Glucose (mg/dL) 162 H 184 H 205 H Plasma Lactic Acid Frederick Crossmatch 01/20/19 01/20/19 01/20/19 06:22 06:22 06:54 WBC 15.3 H RBC Hgb 9.4 L Hct 29.8 L MCV 77.0 L MCH 24.3 L RDW 15.8 H Plt Count Neutrophils # 11.9 H Neutrophils # (Manual) Metamyelocytes # (Man) Myelocytes # (Manual) Sodium Chloride 109 H Carbon Dioxide BUN Glucose 131 H POC Glucose (mg/dL) 129 H Plasma Lactic Acid Frederick Crossmatch 01/20/19 01/20/19 01/20/19 12:11 17:00 20:32 WBC RBC Hgb Hct MCV MCH RDW Plt Count Neutrophils # Neutrophils # (Manual) Metamyelocytes # (Man) Myelocytes # (Manual) Sodium Chloride Carbon Dioxide BUN Glucose POC Glucose (mg/dL) 166 H 201 H 227 H Plasma Lactic Acid Frederick Crossmatch 01/21/19 01/21/19 01/21/19 06:39 07:23 07:23 WBC 13.8 H RBC 3.71 L Hgb 9.0 L Hct 28.9 L MCV 77.9 L MCH 24.3 L RDW 16.1 H Plt Count Neutrophils # 9.9 H Neutrophils # (Manual) Metamyelocytes # (Man) Myelocytes # (Manual) Sodium Chloride 110 H Carbon Dioxide BUN 5 L Glucose 133 H POC Glucose (mg/dL) 128 H Plasma Lactic Acid Frederick Crossmatch 01/21/19 01/21/19 01/21/19 11:48 14:44 16:53 WBC RBC Hgb Hct MCV MCH RDW Plt Count Neutrophils # Neutrophils # (Manual) Metamyelocytes # (Man) Myelocytes # (Manual) Sodium Chloride Carbon Dioxide BUN Glucose POC Glucose (mg/dL) 189 H 363 H 433 H Plasma Lactic Acid Frederick Crossmatch 01/21/19 01/21/19 01/22/19 20:07 20:35 06:39 WBC 28.4 H RBC 2.80 L Hgb 6.9 L* D Hct 22.1 L MCV 79.0 L MCH 24.6 L RDW 17.2 H Plt Count 474 H Neutrophils # Neutrophils # (Manual) 23.50 H Metamyelocytes # (Man) 0.57 H Myelocytes # (Manual) 0.85 H Sodium Chloride Carbon Dioxide BUN Glucose POC Glucose (mg/dL) 304 H 307 H Plasma Lactic Acid Frederick Crossmatch 01/22/19 01/22/19 01/22/19 06:39 06:54 08:31 WBC RBC Hgb Hct MCV MCH RDW Plt Count Neutrophils # Neutrophils # (Manual) Metamyelocytes # (Man) Myelocytes # (Manual) Sodium 135 L Chloride Carbon Dioxide 19 L BUN Glucose 136 H POC Glucose (mg/dL) 157 H Plasma Lactic Acid Frederick Crossmatch See Detail 01/22/19 01/22/19 08:31 11:49 WBC RBC Hgb Hct MCV MCH RDW Plt Count Neutrophils # Neutrophils # (Manual) Metamyelocytes # (Man) Myelocytes # (Manual) Sodium Chloride Carbon Dioxide BUN Glucose POC Glucose (mg/dL) 128 H Plasma Lactic Acid Frederick 2.9 H* Crossmatch - Diagnostic Findings Additional studies: CT of the abdomen and pelvis reviewed Assessment and Plan Plan: Assessment: #1. Blood loss anemia related to bleeding from the MASTER drain, and likely related to the start of oral anticoagulation postop open incisional hernia repair. Patient is being given prothrombin complex for reversal of Eliquis #2. Incisional hernia, status post surgical repair, postoperative day 4 #3. Previous history of colectomy, ileostomy for perforated viscus, and necrotic bowel following bypass surgery in November 2017 #4. History of ileostomy reversal in May 2018 #5. Paroxysmal atrial fibrillation, on Eliquis, currently in sinus rhythm #6. Coronary artery disease with previous bypass grafting #7. Diabetes mellitus type 2 #8. Hyperlipidemia #9. Hypertension #10. Hypothyroidism #11. DJD #12. History of anxiety/depression #13. Former smoker Plan: Patient is hemodynamically stable, she is receiving [facility] she is being monitored by in intensive care nurse, she is on room air, she denies any shortness of breath or chest pain, her breathing is stable, lung sounds are clear, her abdomen is soft, case was discussed with the surgeon, her anticoagulation will be on hold, will continue close hemodynamic monitoring, is being transfused with 3 units of packed red blood cells. We'll continue to follow I performed a history & physical examination of the patient and discussed their management with my nurse practitioner, Cassandra Gaona. I reviewed the nurse practitioner's note and agree with the documented findings and plan of care. Lung sounds are positive for clear lung sounds. The findings and the impression was discussed with the patient. I attest to the documentation by the nurse practitioner. Time with Patient: Greater than 30
[2019-01-22] MEDS: HYDROcodone/APAP 5-325MG 1 EACH TAB PO PRN ×2 (13:44→19:47)
[2019-01-22] MEDS: SODIUM CHLORIDE 0.9% 1,000 ML IV SCH (13:44)
[2019-01-22 15:01] LABS: INR 0.9 (<1.2); Prothrombin Time 9.7 sec (9.0-12.0)
[2019-01-22 15:18] LABS: Anisocytosis Slight; HCT 27.1 % (34.0-46.0); Hypochromasia Slight; MCH 25.3 pg (25.0-35.0); MCHC 32.1 g/dL (31.0-37.0); MCV 78.8 fL (80.0-100.0); Mean Platelet Volume 7.6; Microcytosis Slight; Platelet Count 528 k/uL (150-450); RBC 3.43 m/uL (3.80-5.40); RDW 16.8 % (11.5-15.5); WBC 30.9 k/uL (3.8-10.6)
[2019-01-22 15:22] LABS: HGB 8.7 gm/dL (11.4-16.0)
[2019-01-22] MEDS ORDERED: LACTATED RINGERS 1,000 ML IV ONE (15:30)
[2019-01-22 17:07] LABS: Glucose,Whole Blood 145 mg/dL (75-99)
[2019-01-22 20:48] LABS: Anisocytosis Slight; HCT 25.9 % (34.0-46.0); HGB 8.1 gm/dL (11.4-16.0); Hypochromasia Moderate; MCH 24.9 pg (25.0-35.0); MCHC 31.2 g/dL (31.0-37.0); MCV 79.8 fL (80.0-100.0); Mean Platelet Volume 6.9; Platelet Count 460 k/uL (150-450); Poikilocytosis Slight; RBC 3.24 m/uL (3.80-5.40); RDW 16.8 % (11.5-15.5); WBC 25.4 k/uL (3.8-10.6)
[2019-01-22 21:04] LABS: Glucose,Whole Blood 117 mg/dL (75-99)
[2019-01-22] MEDS: LATANOPROST 0.005% OPHTH DROPS 2.5 ML BTL BOTH EYES SCH (21:40)
[2019-01-22] MEDS: DULoxetine HCL 60 MG CAPSULE.DR PO SCH (21:40)
[2019-01-22] MEDS: ATORVASTATIN 40 MG TAB PO SCH (21:40)
--- NOTE | 2019-01-22 23:35 | P.PN ---
Progress Note - Text Progress Note Date: 01/22/19 Presenting complaint: Blood to the MASTER drain Interval history: Patient is a 73-year-old female with a known history of paroxysmal atrial fibrillation on anticoagulation with Eliquis, coronary artery disease status post CABG and history of cardiac catheterization, diabetes type 2 [id number], hypertension, hyperlipidemia, memory impairment and hypothyroidism as well as osteoarthritis and other multiple medical problems was admitted to the hospital for elective incisional hernia repair. Patient tolerated the procedure well. Today-patient been having quite a bit of bloody drainage to the MASTER drain. Also to drop in hemoglobin. Patient had been on eliquis. Feels a bit weak and ti red. Review of systems: Was done for constitutional, cardiovascular, GI, pulmonary. relevant finding as above Active Medications Acetaminophen (Tylenol Tab) 650 mg PO Q4HR PRN PRN Reason: Fever and/ or Mild Pain Last Admin: 01/22/19 04:36 Dose: 650 mg Documented by: Hydrocodone Bitart/Acetaminophen ([place] 5-325) 1 each PO Q6HR PRN PRN Reason: Pain Last Admin: 01/22/19 19:47 Dose: 1 each Documented by: Al Hydroxide/Mg Hydroxide (Maalox) 30 ml PO Q4HR PRN PRN Reason: GI Upset Last Admin: 01/22/19 07:07 Dose: 30 ml Documented by: Amiodarone HCl (Cordarone) 100 mg PO 1200 [facility] Last Admin: 01/22/19 12:19 Dose: 100 mg Documented by: Atorvastatin Calcium (Lipitor) 40 mg PO HS [facility] Last Admin: 01/22/19 21:40 Dose: 40 mg Documented by: Cilostazol (Pletal) 100 mg PO DAILY [facility] Last Admin: 01/22/19 07:08 Dose: 100 mg Documented by: Duloxetine HCl (Cymbalta) 60 mg PO HS [facility] Last Admin: 01/22/19 21:40 Dose: 60 mg Documented by: Ergocalciferol (Vitamin D2) 50,000 unit PO COHEN [facility] Last Admin: 01/20/19 12:51 Dose: 50,000 unit Documented by: Glipizide (Glucotrol) 2.5 mg PO AC-BID [facility] Last Admin: 01/22/19 17:18 Dose: 2.5 mg Documented by: Sodium Chloride (Saline 0.9%) 1,000 mls @ 100 mls/hr IV .Q10H [facility] Last Admin: 01/22/19 13:44 Dose: 100 mls/hr Documented by: Piperacillin Sod/Tazobactam (Sod 3.375 gm/ Sodium Chloride) 100 mls @ 25 mls/hr IVPB Q8HR [facility] Last Admin: 01/22/19 16:17 Dose: 25 mls/hr Documented by: Insulin Aspart (Novolog) 0 unit SQ ACHS [facility]; Protocol Last Admin: 01/22/19 21:11 Dose: Not Given Documented by: Latanoprost (Xalatan 0.005%) 1 drops BOTH EYES HS [facility] Last Admin: 01/22/19 21:40 Dose: 1 drops Documented by: Levothyroxine Sodium (Synthroid) 88 mcg PO 0630 [facility] Last Admin: 01/22/19 04:36 Dose: 88 mcg Documented by: Lidocaine HCl (.Xylocaine 1% Inj (10mg/Ml) For Iv Start) 0.1 ml INTRADERMA PER PROTOCOL PRN PRN Reason: IV Start Last Admin: 01/18/19 06:57 Dose: 0.1 ml Documented by: Metformin HCl (Glucophage) 1,000 mg PO BID-W/MEALS [facility] Last Admin: 01/22/19 17:17 Dose: 1,000 mg Documented by: Metoclopramide HCl (Reglan) 10 mg IVP Q6H PRN PRN Reason: Nausea And Vomiting Last Admin: 01/21/19 22:45 Dose: 10 mg Documented by: Metoprolol Tartrate (Lopressor) 50 mg PO BID [facility] Last Admin: 01/22/19 21:40 Dose: 50 mg Documented by: Naloxone HCl (Narcan) 0.2 mg IV Q2M PRN PRN Reason: Opioid Reversal Ondansetron HCl (Zofran) 4 mg IVP Q8HR PRN PRN Reason: Nausea And Vomiting Last Admin: 01/21/19 20:24 Dose: 4 mg Documented by: Oxycodone HCl (Oxycontin 20mg E.R.) 20 mg PO BID PRN PRN Reason: Moderate Pain Control Last Admin: 01/22/19 12:20 Dose: 20 mg Documented by: Potassium Chloride (K-Dur 20) 20 meq PO DAILY [facility] Last Admin: 01/22/19 07:07 Dose: 20 meq Documented by: Prednisone () 5 mg PO 1200 [facility] Last Admin: 01/22/19 12:19 Dose: 5 mg Documented by: On examination: VITAL SIGNS: 98.6, 69, 16, 92% to 6, 98% room air GENERAL APPEARANCE: Laying in bed, tired HEENT: Normal external appearance of nose and ear. Oral cavity normal EYES: Pupils equal. Conjunctiva pale NECK: JVD not raised. Mass not palpable. RESPIRATORY: Respiratory effort normal. Lungs clear to auscultation. CARDIOVASCULAR: First and second sounds normal. No edema. ABDOMEN: Soft. Liver and spleen not palpable. Minimal tenderness. No mass palpable. MASTER drain with bloody drainage. Abdominal dressing in place PSYCHIATRY: Alert and oriented x3. Mood and affect anxious. Investigations: White count 28.4 hemoglobin 6.9 Assessment: -Acute blood loss anemia from the operative site, significantly -Incisional hernia repair -Paroxysmal atrial fibrillation on eliquis -Coronary artery disease and history of CABG -Essential hypertension -Hyperlipidemia -Diabetes mellitus type 2 -Hypothyroidism -Primary osteoarthritis -Peripheral arterial disease -Anxiety depression otherwise specified Plan: Patient eliquis was held.Kcentra the reversal agent was ordered. Unit of blood was ordered. Patient was ordered to go to the ICU. Discussed with the patient. Computed tomography scan of the abdomen was ordered. Follow closely.
[2019-01-23] MEDS: oxyCODONE ER 20 MG TAB.ER.12H PO PRN ×2 (00:56→16:11)
[2019-01-23] MEDS: PIPERACILLIN-TAZOBACTAM 3.375 GM in SODIUM CHLORIDE 0.9% 100 ML IVPB SCH ×2 (00:57→08:12)
[2019-01-23] MEDS: SODIUM CHLORIDE 0.9% 1,000 ML IV SCH ×3 (01:54→21:05)
[2019-01-23] MEDS: HYDROcodone/APAP 5-325MG 1 EACH TAB PO PRN ×2 (03:04→21:06)
[2019-01-23 03:17] LABS: Anisocytosis Slight; HCT 24.5 % (34.0-46.0); HGB 7.8 gm/dL (11.4-16.0); Hypochromasia Marked; MCH 25.7 pg (25.0-35.0); MCHC 31.9 g/dL (31.0-37.0); MCV 80.6 fL (80.0-100.0); Mean Platelet Volume 7.2; Platelet Count 456 k/uL (150-450); Poikilocytosis Slight; RBC 3.04 m/uL (3.80-5.40); RDW 17.1 % (11.5-15.5); WBC 20.7 k/uL (3.8-10.6)
[2019-01-23 03:34] LABS: ALT 27 U/L (9-52); AST 20 U/L (14-36); African American GFR (CKD) >90 (>60 ml/min/1.73 sqM); Albumin 2.6 g/dL (3.5-5.0); Alkaline Phosphatase 163 U/L (38-126); Anion Gap 10 mmol/L; Blood Urea Nitrogen 7 mg/dL (7-17); Calcium 8.7 mg/dL (8.4-10.2); Carbon Dioxide 17 mmol/L (22-30); Chloride 110 mmol/L (98-107); Glucose 76 mg/dL (74-99); Potassium 3.8 mmol/L (3.5-5.1); Sodium 137 mmol/L (137-145); Total Bilirubin 0.4 mg/dL (0.2-1.3); Total Protein 4.9 g/dL (6.3-8.2)
[2019-01-23 07:43] LABS: Glucose,Whole Blood 81 mg/dL (75-99)
[2019-01-23] MEDS: glipiZIDE 5 MG TAB PO SCH ×2 (08:00→17:13)
[2019-01-23] MEDS: INSULIN ASPART (NovoLOG) 100 UNIT/ML VIAL SQ SCH ×4 (08:00→21:03)
[2019-01-23] MEDS: metFORMIN 500 MG TAB PO SCH ×2 (08:00→17:10)
[2019-01-23] MEDS: METOPROLOL TARTRATE 50 MG TAB PO SCH ×2 (08:13→21:04)
[2019-01-23] MEDS: POTASSIUM CHLORIDE ER 20 MEQ TAB.ER PO SCH (08:13)
[2019-01-23] MEDS: LEVOTHYROXINE 88 MCG TAB PO SCH (08:13)
[2019-01-23 09:50] LABS: Anisocytosis Slight; Basophils # (A) 0.1 k/uL (0-0.2); Basophils % (A) 1 %; Eosinophils # (A) 0.6 k/uL (0-0.7); Eosinophils % (A) 3 %; HCT 23.4 % (34.0-46.0); HGB 7.5 gm/dL (11.4-16.0); Hypochromasia Marked; Lymphocytes # (A) 1.7 k/uL (1.0-4.8); Lymphocytes % (A) 9 %; MCH 25.7 pg (25.0-35.0); MCHC 31.9 g/dL (31.0-37.0); MCV 80.6 fL (80.0-100.0); Mean Platelet Volume 7.2; Monocytes # (A) 1.1 k/uL (0-1.0); Monocytes % (A) 6 %; Neutrophils # (A) 15.7 k/uL (1.3-7.7); Neutrophils % (A) 80 %; Platelet Count 471 k/uL (150-450); Poikilocytosis Slight; RBC 2.91 m/uL (3.80-5.40); RDW 17.2 % (11.5-15.5); WBC 19.5 k/uL (3.8-10.6)
--- NOTE | 2019-01-23 11:01 | P.PN ---
Subjective Progress Note Date: 01/23/19 CHIEF COMPLAINT: Incisional hernia HISTORY OF PRESENT ILLNESS: Patient is s/p open incisional hernia repair performed on 10/18/18. Patient developed acute bleeding yesterday. Eliquis was discontinued. She received 1 unit RBC. Most recent hemoglobin 7.5. Received K Centra. She states her abdominal pain is tolerable this morning. Passing flatus. Denies nausea or vomiting. WBC 19.5. Lactic acid 1.5. MASTER with 160cc drainage overnight. PHYSICAL EXAM: VITAL SIGNS: Reviewed. GENERAL: Well-developed in no acute distress. Pale. HEENT: No sclera icterus. Extraocular movements grossly intact. Moist buccal mucosa. Head is atraumatic, normocephalic. ABDOMEN: Obese. Soft. Nondistended. Appropriate surgical tenderness. Dressing to midline with shadowing present. MASTER drain with sanguinous drainage. Abdominal binder present. NEUROLOGIC: Alert and oriented. Cranial nerves II through XII grossly intact. ASSESSMENT: 1. Status post open repair of incisional hernia 2. Acute blood loss anemia PLAN: -Continue to hold Eliquis -SCDs for DVT prophylaxis -Resume diet -Decrease IV fluids to 50cc/hr -Monitor hemoglobin -Monitor drainage from MASTER drain Nurse practitioner note has been reviewed by physician. Signing provider agrees with the documented findings, assessment, and plan of care. Objective - Vital Signs Vital signs: Vital Signs Temp 98.5 F 01/23/19 07:00 Pulse 68 01/23/19 07:00 Resp 12 01/23/19 07:00 BP 117/56 01/23/19 07:00 Pulse Ox 99 01/23/19 07:00 Intake & Output 01/22/19 01/23/19 01/23/19 18:59 06:59 18:59 Intake Total 1070 Output Total 170 160 70 Balance 900 -160 -70 Intake: IV 300 Piperacillin-Tazobactam 3 100 .375 gm In Sodium Chloride 0.9% 100 ml @ 25 mls/hr IVPB Q8HR [facility] Rx# :[id number] Sodium Chloride 0.9% 1, 200 000 ml @ 100 mls/hr IV . Q10H [facility] Rx#:[id number] Oral 150 Blood Product 620 Rc As-1 Unit 310 [id number] Output: Drainage 170 160 70 Abdomen 170 160 70 Other: # Voids 2 2 # Bowel Movements 3 1 - Labs CBC & Chem 7: 01/23/19 09:16 01/23/19 02:46 Labs: Abnormal Lab Results - Last 24 Hours (Table) 01/22/19 01/22/19 01/22/19 Range/Units 08:31 11:49 14:30 WBC 30.9 H (3.8-10.6) k/uL RBC 3.43 L (3.80-5.40) m/uL Hgb 8.7 L D (11.4-16.0) gm/dL Hct 27.1 L (34.0-46.0) % MCV 78.8 L (80.0-100.0) fL MCH (25.0-35.0) pg RDW 16.8 H (11.5-15.5) % Plt Count 528 H (150-450) k/uL Neutrophils # (1.3-7.7) k/uL Monocytes # (0-1.0) k/uL Chloride (98-107) mmol/L Carbon Dioxide (22-30) mmol/L POC Glucose (mg/dL) 128 H (75-99) mg/dL Plasma Lactic Acid Frederick (0.7-2.0) mmol/L Alkaline Phosphatase (38-126) U/L Total Protein (6.3-8.2) g/dL Albumin (3.5-5.0) g/dL Crossmatch See Detail 01/22/19 01/22/19 01/22/19 Range/Units 14:30 16:51 18:52 WBC (3.8-10.6) k/uL RBC (3.80-5.40) m/uL Hgb (11.4-16.0) gm/dL Hct (34.0-46.0) % MCV (80.0-100.0) fL MCH (25.0-35.0) pg RDW (11.5-15.5) % Plt Count (150-450) k/uL Neutrophils # (1.3-7.7) k/uL Monocytes # (0-1.0) k/uL Chloride (98-107) mmol/L Carbon Dioxide (22-30) mmol/L POC Glucose (mg/dL) 145 H (75-99) mg/dL Plasma Lactic Acid Frederick 3.2 H* 2.9 H* (0.7-2.0) mmol/L Alkaline Phosphatase (38-126) U/L Total Protein (6.3-8.2) g/dL Albumin (3.5-5.0) g/dL Crossmatch 01/22/19 01/22/19 01/22/19 Range/Units 20:35 20:51 22:47 WBC 25.4 H (3.8-10.6) k/uL RBC 3.24 L (3.80-5.40) m/uL Hgb 8.1 L (11.4-16.0) gm/dL Hct 25.9 L (34.0-46.0) % MCV 79.8 L (80.0-100.0) fL MCH 24.9 L (25.0-35.0) pg RDW 16.8 H (11.5-15.5) % Plt Count 460 H (150-450) k/uL Neutrophils # (1.3-7.7) k/uL Monocytes # (0-1.0) k/uL Chloride (98-107) mmol/L Carbon Dioxide (22-30) mmol/L POC Glucose (mg/dL) 117 H (75-99) mg/dL Plasma Lactic Acid Frederick 2.1 H* (0.7-2.0) mmol/L Alkaline Phosphatase (38-126) U/L Total Protein (6.3-8.2) g/dL Albumin (3.5-5.0) g/dL Crossmatch 01/23/19 01/23/19 01/23/19 Range/Units 02:46 02:46 09:16 WBC 20.7 H 19.5 H (3.8-10.6) k/uL RBC 3.04 L 2.91 L (3.80-5.40) m/uL Hgb 7.8 L 7.5 L (11.4-16.0) gm/dL Hct 24.5 L 23.4 L (34.0-46.0) % MCV (80.0-100.0) fL MCH (25.0-35.0) pg RDW 17.1 H 17.2 H (11.5-15.5) % Plt Count 456 H 471 H (150-450) k/uL Neutrophils # 15.7 H (1.3-7.7) k/uL Monocytes # 1.1 H (0-1.0) k/uL Chloride 110 H (98-107) mmol/L Carbon Dioxide 17 L (22-30) mmol/L POC Glucose (mg/dL) (75-99) mg/dL Plasma Lactic Acid Frederick (0.7-2.0) mmol/L Alkaline Phosphatase 163 H (38-126) U/L Total Protein 4.9 L (6.3-8.2) g/dL Albumin 2.6 L (3.5-5.0) g/dL Crossmatch
[2019-01-23] MEDS: predniSONE 5 MG TAB PO SCH (11:41)
[2019-01-23] MEDS: AMIODARONE 100 MG TAB PO SCH (11:41)
[2019-01-23] MEDS: CILOSTAZOL 100 MG TAB PO SCH (11:41)
[2019-01-23 12:10] LABS: Glucose,Whole Blood 146 mg/dL (75-99)
--- NOTE | 2019-01-23 15:59 | P.PN ---
Subjective Progress Note Date: 01/23/19 Principal diagnosis: Acute bleeding from the MASTER drain site This is a 73-year-old white female patient with past medical history of atrial fibrillation on Eliquis, coronary artery disease with previous bypass grafting, diabetes mellitus type 2, hypertension, hyperlipidemia, osteoarthritis, hypothyroidism, who underwent open incisional hernia repair on 01/18/2019. Patient had initially developed complications related to bowel ischemia following her bypass surgery, sustained acute perforated viscus and necrosis of the transverse and right colon, and underwent right colectomy, transverse colectomy and takedown of splenic flexure with ileostomy. Subsequently patient had her ostomy reversed in May 2018. She did develop an incisional hernia, and hence patient underwent the above-mentioned open incisional repair by Dr. Montoya on 01/18/2019. Her Eliquis was restarted on postop day 1. Apparently overnight patient developed increased sinus output from her MASTER drain that is placed in the subcutaneous tissues near her surgical incision, and had 500 mL of sanguinous output overnight with additional 800 on day shift today. Her Eliquis was placed on hold, she did have a hemoglobin drop of 2.1 g since yesterday from a 9.0-6.9. She has been transfused with 3 units of packed red blood cells, and her anticoagulation is being reversed with prothrombin complex agent K-Centra. She is awake and alert, in no acute distress, hemodynamically patient is stable, she is not tachycardic, she is currently in normal sinus rhythm with a rate of 74. She is on room air, denies any shortness of breath or chest pain. Her abdomen is soft, and the MASTER drain continues to put out then sanguinous drainage. The K-Centra is being infused, mentation is appropriate, he denies any acute abdominal pain. And we're asked to see the patient for critical care management. On 01/23/2019 patient seen in follow-up on medical surgical floor. She is awake and alert, in no acute distress, her Eliquis remains on hold, patient has read a dose of a Centra, and her bleeding from the MASTER drain has significantly slowed down, and is down to 330 mL loss over last 24 hours, compared to previous 740 in the previous 24 hours, hemodynamically stable, her hemoglobin today is 7.5, patient did receive a unit of packed red blood cells yesterday, no other issues overnight, patient did develop diarrhea, C. diff was sent, patient was started on Zosyn for empiric antibiotic coverage, however clinically does not look infected, and her leukocytosis could probably be just reactive. Objective - Vital Signs Vital signs: Vital Signs Temp 98.3 F 01/23/19 14:45 Pulse 80 01/23/19 14:45 Resp 14 01/23/19 14:45 BP 177/56 01/23/19 14:45 Pulse Ox 99 01/23/19 14:45 Intake & Output 01/22/19 01/23/19 01/23/19 18:59 06:59 18:59 Intake Total 1070 Output Total 170 160 70 Balance 900 -160 -70 Intake: IV 300 Piperacillin-Tazobactam 3 100 .375 gm In Sodium Chloride 0.9% 100 ml @ 25 mls/hr IVPB Q8HR WILLIAM Rx# :[id number] Sodium Chloride 0.9% 1, 200 000 ml @ 100 mls/hr IV . Q10H WILLIAM Rx#:[id number] Oral 150 Blood Product 620 Rc As-1 Unit 310 [id number] Output: Drainage 170 160 70 Abdomen 170 160 70 Other: # Voids 2 2 # Bowel Movements 3 1 - Exam GENERAL EXAM: Alert, very pleasant, 73-year-old obese white female, on room air, resting comfortably in bed, appears slightly pale, but in no acute distress HEAD: Normocephalic/atraumatic. EYES: Normal reaction of pupils, equal size. Conjunctiva pink, sclera white. NOSE: Clear with pink turbinates. THROAT: No erythema or exudates. NECK: No masses, no JVD, no thyroid enlargement, no adenopathy. CHEST: No chest wall deformity. Symmetrical expansion. LUNGS: Equal air entry with no crackles, wheeze, rhonchi or dullness. CVS: Regular rate and rhythm, normal S1 and S2, no gallops, no murmurs, no rubs ABDOMEN: Soft, nontender. No hepatosplenomegaly, normal bowel sounds, no guarding or rigidity. Mildly tender, but no acute distress, midline abdominal dressing clean dry and intact, with small amount of old sanguinous drainage, MASTER drain with large sanguinous output and abdominal binder is present EXTREMITIES: No clubbing, no edema, no cyanosis, 2+ pulses and upper and lower extremities. MUSCULOSKELETAL: Muscle strength and tone normal. SPINE: No scoliosis or deformity SKIN: No rashes CENTRAL NERVOUS SYSTEM: Alert and oriented -3. No focal deficits, tone is normal in all 4 extremities. PSYCHIATRIC: Alert and oriented -3. Appropriate affect. Intact judgment and insight. - Labs CBC & Chem 7: 01/23/19 09:16 01/23/19 02:46 Labs: Abnormal Lab Results - Last 24 Hours (Table) 01/22/19 01/22/19 01/22/19 Range/Units 16:51 18:52 20:35 WBC 25.4 H (3.8-10.6) k/uL RBC 3.24 L (3.80-5.40) m/uL Hgb 8.1 L (11.4-16.0) gm/dL Hct 25.9 L (34.0-46.0) % MCV 79.8 L (80.0-100.0) fL MCH 24.9 L (25.0-35.0) pg RDW 16.8 H (11.5-15.5) % Plt Count 460 H (150-450) k/uL Neutrophils # (1.3-7.7) k/uL Monocytes # (0-1.0) k/uL Chloride (98-107) mmol/L Carbon Dioxide (22-30) mmol/L POC Glucose (mg/dL) 145 H (75-99) mg/dL Plasma Lactic Acid Frederick 2.9 H* (0.7-2.0) mmol/L Alkaline Phosphatase (38-126) U/L Total Protein (6.3-8.2) g/dL Albumin (3.5-5.0) g/dL 01/22/19 01/22/19 01/23/19 Range/Units 20:51 22:47 02:46 WBC 20.7 H (3.8-10.6) k/uL RBC 3.04 L (3.80-5.40) m/uL Hgb 7.8 L (11.4-16.0) gm/dL Hct 24.5 L (34.0-46.0) % MCV (80.0-100.0) fL MCH (25.0-35.0) pg RDW 17.1 H (11.5-15.5) % Plt Count 456 H (150-450) k/uL Neutrophils # (1.3-7.7) k/uL Monocytes # (0-1.0) k/uL Chloride (98-107) mmol/L Carbon Dioxide (22-30) mmol/L POC Glucose (mg/dL) 117 H (75-99) mg/dL Plasma Lactic Acid Frederick 2.1 H* (0.7-2.0) mmol/L Alkaline Phosphatase (38-126) U/L Total Protein (6.3-8.2) g/dL Albumin (3.5-5.0) g/dL 01/23/19 01/23/19 01/23/19 Range/Units 02:46 09:16 11:59 WBC 19.5 H (3.8-10.6) k/uL RBC 2.91 L (3.80-5.40) m/uL Hgb 7.5 L (11.4-16.0) gm/dL Hct 23.4 L (34.0-46.0) % MCV (80.0-100.0) fL MCH (25.0-35.0) pg RDW 17.2 H (11.5-15.5) % Plt Count 471 H (150-450) k/uL Neutrophils # 15.7 H (1.3-7.7) k/uL Monocytes # 1.1 H (0-1.0) k/uL Chloride 110 H (98-107) mmol/L Carbon Dioxide 17 L (22-30) mmol/L POC Glucose (mg/dL) 146 H (75-99) mg/dL Plasma Lactic Acid Frederick (0.7-2.0) mmol/L Alkaline Phosphatase 163 H (38-126) U/L Total Protein 4.9 L (6.3-8.2) g/dL Albumin 2.6 L (3.5-5.0) g/dL Assessment and Plan Plan: Assessment: #1. Blood loss anemia related to bleeding from the MASTER drain, and likely related to the start of oral anticoagulation postop open incisional hernia repair. Patient is being given prothrombin complex for reversal of Eliquis #2. Incisional hernia, status post surgical repair, postoperative day 5 #3. Previous history of colectomy, ileostomy for perforated viscus, and necrotic bowel following bypass surgery in November 2017 #4. History of ileostomy reversal in May 2018 #5. Paroxysmal atrial fibrillation, on Eliquis, currently in sinus rhythm #6. Coronary artery disease with previous bypass grafting #7. Diabetes mellitus type 2 #8. Hyperlipidemia #9. Hypertension #10. Hypothyroidism #11. DJD #12. History of anxiety/depression #13. Former smoker Plan: Continue current plan of treatment, send a stool for C. diff, discontinue the Zosyn, we discussed the case with the surgical team, and we do not feel that empiric antibiotics are necessary at this time, leukocytosis could be reactive, no fever or chills, bleeding out of the MASTER drain significant slowdown, Eliquis remains on hold. Hemodynamics are stable, did not require blood transfusion today, we will sign off and follow on as-needed basis. I performed a history & physical examination of the patient and discussed their management with my nurse practitioner, Cassandra Gaona. I reviewed the nurse practitioner's note and agree with the documented findings and plan of care. Lung sounds are positive for clear lung sounds. The findings and the impression was discussed with the patient. I attest to the documentation by the nurse practitioner. Time with Patient: Less than 30
[2019-01-23 17:01] LABS: Glucose,Whole Blood 197 mg/dL (75-99)
[2019-01-23 20:42] LABS: Glucose,Whole Blood 148 mg/dL (75-99)
[2019-01-23] MEDS: LATANOPROST 0.005% OPHTH DROPS 2.5 ML BTL BOTH EYES SCH (21:04)
[2019-01-23] MEDS: ATORVASTATIN 40 MG TAB PO SCH (21:04)
[2019-01-23] MEDS: DULoxetine HCL 60 MG CAPSULE.DR PO SCH (21:04)
--- NOTE | 2019-01-23 22:01 | P.PN ---
Progress Note - Text Progress Note Date: 01/23/19 Presenting complaint: Blood from MASTER drain Interval history: Patient is a 73-year-old female with a known history of paroxysmal atrial fibrillation on anticoagulation with Eliquis, coronary artery disease status post CABG and history of cardiac catheterization, diabetes type 2 [id number], hypertension, hyperlipidemia, memory impairment and hypothyroidism as well as osteoarthritis and other multiple medical problems was admitted to the hospital for elective incisional hernia repair. Patient tolerated the procedure well. Patient subsequently was having increasing bloody drainage from the MASTER drain. Had been on eliquis. This was discontinued. Patient is given KCentra. on January 22. Today-still having bloody drainage through the MASTER drain. About 180 mL a shift. His bruising around the abdominal wall. No pain. Does feel a bit tired. Review of systems: Was done for constitutional, cardiovascular, GI, pulmonary. relevant finding as above Active Medications Acetaminophen (Tylenol Tab) 650 mg PO Q4HR PRN PRN Reason: Fever and/ or Mild Pain Last Admin: 01/22/19 04:36 Dose: 650 mg Documented by: Hydrocodone Bitart/Acetaminophen ([place] 5-325) 1 each PO Q6HR PRN PRN Reason: Pain Last Admin: 01/23/19 21:06 Dose: 1 each Documented by: Al Hydroxide/Mg Hydroxide (Maalox) 30 ml PO Q4HR PRN PRN Reason: GI Upset Last Admin: 01/22/19 07:07 Dose: 30 ml Documented by: Amiodarone HCl (Cordarone) 100 mg PO 1200 [facility] Last Admin: 01/23/19 11:41 Dose: 100 mg Documented by: Atorvastatin Calcium (Lipitor) 40 mg PO HS [facility] Last Admin: 01/23/19 21:04 Dose: 40 mg Documented by: Cilostazol (Pletal) 100 mg PO DAILY [facility] Last Admin: 01/23/19 11:41 Dose: 100 mg Documented by: Duloxetine HCl (Cymbalta) 60 mg PO [facility] Last Admin: 01/23/19 21:04 Dose: 60 mg Documented by: Ergocalciferol (Vitamin D2) 50,000 unit PO COHEN [facility] Last Admin: 01/20/19 12:51 Dose: 50,000 unit Documented by: Glipizide (Glucotrol) 2.5 mg PO AC-BID [facility] Last Admin: 01/23/19 17:13 Dose: 2.5 mg Documented by: Sodium Chloride (Saline 0.9%) 1,000 mls @ 50 mls/hr IV .Q20H [facility] Last Admin: 01/23/19 21:05 Dose: 50 mls/hr Documented by: Insulin Aspart (Novolog) 0 unit SQ ACHS [facility]; Protocol Last Admin: 01/23/19 21:03 Dose: 1 unit Documented by: Latanoprost (Xalatan 0.005%) 1 drops BOTH EYES HS [facility] Last Admin: 01/23/19 21:04 Dose: 1 drops Documented by: Levothyroxine Sodium (Synthroid) 88 mcg PO 0630 [facility] Last Admin: 01/23/19 08:13 Dose: 88 mcg Documented by: Lidocaine HCl (.Xylocaine 1% Inj (10mg/Ml) For Iv Start) 0.1 ml INTRADERMA PER PROTOCOL PRN PRN Reason: IV Start Last Admin: 01/18/19 06:57 Dose: 0.1 ml Documented by: Metformin HCl (Glucophage) 1,000 mg PO BID-W/MEALS [facility] Last Admin: 01/23/19 17:10 Dose: 1,000 mg Documented by: Metoclopramide HCl (Reglan) 10 mg IVP Q6H PRN PRN Reason: Nausea And Vomiting Last Admin: 01/21/19 22:45 Dose: 10 mg Documented by: Metoprolol Tartrate (Lopressor) 50 mg PO BID [facility] Last Admin: 01/23/19 21:04 Dose: 50 mg Documented by: Naloxone HCl (Narcan) 0.2 mg IV Q2M PRN PRN Reason: Opioid Reversal Ondansetron HCl (Zofran) 4 mg IVP Q8HR PRN PRN Reason: Nausea And Vomiting Last Admin: 01/21/19 20:24 Dose: 4 mg Documented by: Oxycodone HCl (Oxycontin 20mg E.R.) 20 mg PO BID PRN PRN Reason: Moderate Pain Control Last Admin: 01/23/19 16:11 Dose: 20 mg Documented by: Potassium Chloride (K-Dur 20) 20 meq PO DAILY [facility] Last Admin: 01/23/19 08:13 Dose: 20 meq Documented by: Prednisone () 5 mg PO 1200 [facility] Last Admin: 01/23/19 11:41 Dose: 5 mg Documented by: On examination: VITAL SIGNS: 98.5, 68, 12, 1 with 7 x 56, 99% room air GENERAL APPEARANCE: Laying in bed, tired HEENT: Normal external appearance of nose and ear. Oral cavity normal EYES: Pupils equal. Conjunctiva pale NECK: JVD not raised. Mass not palpable. RESPIRATORY: Respiratory effort normal. Lungs clear to auscultation. CARDIOVASCULAR: First and second sounds normal. No edema. ABDOMEN: Soft. Liver and spleen not palpable. Minimal tenderness. No mass palp able. MASTER drain with bloody drainage. Abdominal dressing in place. Bruising on the right side of the abdomen has been present PSYCHIATRY: Alert and oriented x3. Mood and affect anxious. Investigations: White count 19.5 kg with 7.5 platelets 471 C. diff negative Previous labs White count 28.4 hemoglobin 6.9 Assessment: -Acute blood loss anemia from the operative site, significantly, especially through the MASTER drain. Status post 1 unit of blood. -Reversal of the liquids with K Centra -Status post Incisional hernia repair -Paroxysmal atrial fibrillation on eliquis, currently held as -Coronary artery disease and history of CABG -Essential hypertension -Hyperlipidemia -Diabetes mellitus type 2 -Hypothyroidism -Primary osteoarthritis -Peripheral arterial disease -Anxiety depression otherwise specified Plan: Patient still having bloody drainage out of the MASTER drain. Hemoglobin is being checked every 6 hours. If anytime patient blood pressure drops or becomes tachycardic we should probably transfuse blood. Care was discussed the patient has been of the bedside and her nurse in detail.
[2019-01-24] MEDS: oxyCODONE ER 20 MG TAB.ER.12H PO PRN ×2 (03:45→17:16)
[2019-01-24] MEDS: HYDROcodone/APAP 5-325MG 1 EACH TAB PO PRN ×2 (05:57→21:23)
[2019-01-24] MEDS: LEVOTHYROXINE 88 MCG TAB PO SCH (06:00)
[2019-01-24] MEDS: INSULIN ASPART (NovoLOG) 100 UNIT/ML VIAL SQ SCH ×4 (07:17→21:04)
[2019-01-24 07:20] LABS: Glucose,Whole Blood 127 mg/dL (75-99)
[2019-01-24 07:22] LABS: Anisocytosis Slight; Basophils # (A) 0.2 k/uL (0-0.2); Basophils % (A) 1 %; Eosinophils # (A) 0.7 k/uL (0-0.7); Eosinophils % (A) 5 %; HCT 20.8 % (34.0-46.0); Hypochromasia Slight; Lymphocytes % (A) 13 %; MCH 26.5 pg (25.0-35.0); MCHC 33.3 g/dL (31.0-37.0); MCV 79.5 fL (80.0-100.0); Microcytosis Slight; Monocytes % (A) 6 %; Neutrophils % (A) 75 %; Platelet Count 436 k/uL (150-450); Poikilocytosis Slight; RBC 2.62 m/uL (3.80-5.40); RDW 17.7 % (11.5-15.5); WBC 16.1 k/uL (3.8-10.6)
[2019-01-24 07:36] LABS: ALT 24 U/L (9-52); AST 15 U/L (14-36); African American GFR (CKD) >90 (>60 ml/min/1.73 sqM); Albumin 2.4 g/dL (3.5-5.0); Alkaline Phosphatase 135 U/L (38-126); Anion Gap 8 mmol/L; Blood Urea Nitrogen 4 mg/dL (7-17); Calcium 8.3 mg/dL (8.4-10.2); Carbon Dioxide 20 mmol/L (22-30); Chloride 111 mmol/L (98-107); Glucose 111 mg/dL (74-99); Potassium 3.6 mmol/L (3.5-5.1); Sodium 139 mmol/L (137-145); Total Bilirubin 0.2 mg/dL (0.2-1.3); Total Protein 4.5 g/dL (6.3-8.2)
[2019-01-24] MEDS: CILOSTAZOL 100 MG TAB PO SCH (07:39)
[2019-01-24] MEDS: glipiZIDE 5 MG TAB PO SCH ×2 (07:39→17:13)
[2019-01-24] MEDS: POTASSIUM CHLORIDE ER 20 MEQ TAB.ER PO SCH (07:39)
[2019-01-24] MEDS: METOPROLOL TARTRATE 50 MG TAB PO SCH ×2 (07:39→21:24)
[2019-01-24] MEDS: metFORMIN 500 MG TAB PO SCH ×2 (07:39→17:13)
[2019-01-24 07:53] LABS: HGB 6.9 gm/dL (11.4-16.0)
--- NOTE | 2019-01-24 10:06 | CT ---
EXAMINATION TYPE: CT abdomen pelvis w con DATE OF EXAM: 01/24/2019 COMPARISON: 01/22/2019 INDICATION: Rectus sheath hematoma DLP: 1559.4 mGycm, Automated exposure control for dose reduction was used. CONTRAST: 100 ml mL of Isovue 300. Study performed without Oral Contrast TECHNIQUE: Axial images were obtained from above the diaphragm to the pubic rami in the axial plane a t 5 mm thick sections. Reconstructed images are reviewed on the computer in the coronal plane. FINDINGS: Limited CT sections are obtained the lung bases. There is a calcification along the posterior medial right lung base which was present previously.. CT ABDOMEN: Liver: There are few small calcified granuloma within the liver. Spleen: Multiple calcified splenic granulomata are present. Pancreas: Atrophic Adrenal glands: The adrenal glands are normal. Gallbladder: Normal Kidneys: No masses are evident. No hydronephrosis is present. 1.0 cm cyst on the anterior left mid kidney. Delayed images were obtained through the kidneys, which remain unremarkable. Aorta: Vascular calcification is within the aorta. Inferior vena cava: Normal. CT PELVIS: Anterior abdominal wall surgery is evident. Small collection may be at the inferior portio n of the pelvis in the deep subcutaneous tissues. This is inferior to a drain. Small resolving hemato ma or abscess could be considered. This is diminished from comparison. There is mild prominence and fluid filled small bowel loops within the mid to upper abdomen. The colo n appears decompressed. No dilated small bowel loops are evident. The study is performed without oral contrast limiting bowel evaluation. Appendix: Normal as visualized. Urinary bladder: Normal. Genitourinary structures: Uterus is atrophic. Adnexal regions are clear Osseous structures: No suspicious lytic or sclerotic lesions. IMPRESSIONS: 1. Postoperative ileus. 2. Resolving anterior abdominal wall subcutaneous collection. Drainage catheter remains present.
--- NOTE | 2019-01-24 11:13 | P.PN ---
Subjective Progress Note Date: 01/24/19 CHIEF COMPLAINT: Incisional hernia HISTORY OF PRESENT ILLNESS: Patient is s/p open incisional hernia repair performed on 10/18/18. Patient with 110cc drainage from MASTER over the last 12 hours per EMR. Hemoglobin this morning is 6.9. Blood pressure is stable. She denies abdominal pain. PHYSICAL EXAM: VITAL SIGNS: Reviewed. GENERAL: Well-developed in no acute distress. Pale. HEENT: No sclera icterus. Extraocular movements grossly intact. Moist buccal mucosa. Head is atraumatic, normocephalic. ABDOMEN: Obese. Soft. Nondistended. Appropriate surgical tenderness. Dressing to midline with shadowing present. MASTER drain with sanguinous drainage. Abdominal binder present. NEUROLOGIC: Alert and oriented. Cranial nerves II through XII grossly intact. ASSESSMENT: 1. Status post open repair of incisional hernia 2. Acute blood loss anemia PLAN: -Continue to hold Eliquis -SCDs for DVT prophylaxis -Continue diet as tolerated -Monitor hemoglobin -Monitor drainage from MASTER drain -1 unit RBC transfusion -Repeat CT with IV contrast to evaluate abdominal hematoma Nurse practitioner note has been reviewed by physician. Signing provider agrees with the documented findings, assessment, and plan of care. Objective - Vital Signs Vital signs: Vital Signs Temp 98.5 F 01/24/19 10:35 Pulse 69 01/24/19 10:35 Resp 16 01/24/19 10:35 BP 109/62 01/24/19 10:35 Pulse Ox 98 01/24/19 10:25 Intake & Output 01/23/19 01/24/19 01/24/19 18:59 06:59 18:59 Intake Total 0 Output Total 205 110 Balance -205 -110 0 Intake: Blood Product 0 Rc Cpda-1 Unit 0 [id number] Output: Drainage 205 110 Abdomen 205 110 Other: Voiding Method Toilet # Voids 1 # Bowel Movements 3 - Labs CBC & Chem 7: 01/24/19 06:49 01/24/19 06:49 Labs: Abnormal Lab Results - Last 24 Hours (Table) 01/22/19 01/23/19 01/23/19 Range/Units 08:31 11:59 16:50 WBC (3.8-10.6) k/uL RBC (3.80-5.40) m/uL Hgb (11.4-16.0) gm/dL Hct (34.0-46.0) % MCV (80.0-100.0) fL RDW (11.5-15.5) % Neutrophils # (1.3-7.7) k/uL Chloride (98-107) mmol/L Carbon Dioxide (22-30) mmol/L BUN (7-17) mg/dL Glucose (74-99) mg/dL POC Glucose (mg/dL) 146 H 197 H (75-99) mg/dL Calcium (8.4-10.2) mg/dL Alkaline Phosphatase (38-126) U/L Total Protein (6.3-8.2) g/dL Albumin (3.5-5.0) g/dL Crossmatch See Detail 01/23/19 01/24/19 01/24/19 Range/Units 20:31 06:49 06:49 WBC 16.1 H (3.8-10.6) k/uL RBC 2.62 L (3.80-5.40) m/uL Hgb 6.9 L* (11.4-16.0) gm/dL Hct 20.8 L (34.0-46.0) % MCV 79.5 L (80.0-100.0) fL RDW 17.7 H (11.5-15.5) % Neutrophils # 12.0 H (1.3-7.7) k/uL Chloride 111 H (98-107) mmol/L Carbon Dioxide 20 L (22-30) mmol/L BUN 4 L (7-17) mg/dL Glucose 111 H (74-99) mg/dL POC Glucose (mg/dL) 148 H (75-99) mg/dL Calcium 8.3 L (8.4-10.2) mg/dL Alkaline Phosphatase 135 H (38-126) U/L Total Protein 4.5 L (6.3-8.2) g/dL Albumin 2.4 L (3.5-5.0) g/dL Crossmatch 01/24/19 Range/Units 07:03 WBC (3.8-10.6) k/uL RBC (3.80-5.40) m/uL Hgb (11.4-16.0) gm/dL Hct (34.0-46.0) % MCV (80.0-100.0) fL RDW (11.5-15.5) % Neutrophils # (1.3-7.7) k/uL Chloride (98-107) mmol/L Carbon Dioxide (22-30) mmol/L BUN (7-17) mg/dL Glucose (74-99) mg/dL POC Glucose (mg/dL) 127 H (75-99) mg/dL Calcium (8.4-10.2) mg/dL Alkaline Phosphatase (38-126) U/L Total Protein (6.3-8.2) g/dL Albumin (3.5-5.0) g/dL Crossmatch
[2019-01-24 11:49] LABS: Glucose,Whole Blood 105 mg/dL (75-99)
[2019-01-24] MEDS: AMIODARONE 100 MG TAB PO SCH (12:29)
[2019-01-24] MEDS: predniSONE 5 MG TAB PO SCH (12:29)
[2019-01-24] MEDS ORDERED: LEVOFLOXACIN 750 MG TAB PO SCH (12:30)
[2019-01-24] MEDS: SULFAMETHOX-TMP 800-160MG 1 EACH TAB PO SCH ×2 (14:28→21:24)
[2019-01-24] MEDS: SODIUM CHLORIDE 0.9% 1,000 ML IV SCH (16:27)
[2019-01-24 17:05] LABS: Glucose,Whole Blood 139 mg/dL (75-99)
[2019-01-24] MEDS: ONDANSETRON 4 MG/2 ML VIAL IVP PRN (17:44)
--- NOTE | 2019-01-24 19:54 | P.PN ---
Progress Note - Text Progress Note Date: 01/24/19 Presenting complaint: Blood from MASTER drain Interval history: Patient is a 73-year-old female with a known history of paroxysmal atrial fibrillation on anticoagulation with Eliquis, coronary artery disease status post CABG and history of cardiac catheterization, diabetes type 2 [id number]-zqjtzkzeg, hypertension, hyperlipidemia, memory impairment and hypothyroidism as well as osteoarthritis and other multiple medical problems was admitted to the hospital for elective incisional hernia repair. Patient tolerated the procedure well. Patient subsequently was having increasing bloody drainage from the MASTER drain. Had been on eliquis. This was discontinued. Patient is given KCentra. on January 22. Today-still having prominent bloody drainage the MASTER drain. No nausea vomiting. Computed tomography scan was ordered by the surgical team. Review of systems: Was done for constitutional, cardiovascular, GI, pulmonary. relevant finding as above Active Medications Acetaminophen (Tylenol Tab) 650 mg PO Q4HR PRN PRN Reason: Fever and/ or Mild Pain Last Admin: 01/22/19 04:36 Dose: 650 mg Documented by: Hydrocodone Bitart/Acetaminophen ([place] 5-325) 1 each PO Q6HR PRN PRN Reason: Pain Last Admin: 01/24/19 05:57 Dose: 1 each Documented by: Al Hydroxide/Mg Hydroxide (Maalox) 30 ml PO Q4HR PRN PRN Reason: GI Upset Last Admin: 01/22/19 07:07 Dose: 30 ml Documented by: Amiodarone HCl (Cordarone) 100 mg PO 1200 [facility] Last Admin: 01/24/19 12:29 Dose: 100 mg Documented by: Atorvastatin Calcium (Lipitor) 40 mg PO [facility] Last Admin: 01/23/19 21:04 Dose: 40 mg Documented by: Cilostazol (Pletal) 100 mg PO DAILY [facility] Last Admin: 01/24/19 07:39 Dose: 100 mg Documented by: Duloxetine HCl (Cymbalta) 60 mg PO HS [facility] Last Admin: 01/23/19 21:04 Dose: 60 mg Documented by: Ergocalciferol (Vitamin D2) 50,000 unit PO [place] [facility] Last Admin: 01/20/19 12:51 Dose: 50,000 unit Documented by: Glipizide (Glucotrol) 2.5 mg PO AC-BID [facility] Last Admin: 01/24/19 17:13 Dose: 2.5 mg Documented by: Sodium Chloride (Saline 0.9%) 1,000 mls @ 50 mls/hr IV .Q20H [facility] Last Admin: 01/24/19 16:27 Dose: Not Given Documented by: Insulin Aspart (Novolog) 0 unit SQ ACHS [facility]; Protocol Last Admin: 01/24/19 17:20 Dose: 1 unit Documented by: Latanoprost (Xalatan 0.005%) 1 drops BOTH EYES [facility] Last Admin: 01/23/19 21:04 Dose: 1 drops Documented by: Levothyroxine Sodium (Synthroid) 88 mcg PO 0630 [facility] Last Admin: 01/24/19 06:00 Dose: 88 mcg Documented by: Lidocaine HCl (.Xylocaine 1% Inj (10mg/Ml) For Iv Start) 0.1 ml INTRADERMA PER PROTOCOL PRN PRN Reason: IV Start Last Admin: 01/18/19 06:57 Dose: 0.1 ml Documented by: Metformin HCl (Glucophage) 1,000 mg PO BID-W/MEALS [facility] Last Admin: 01/24/19 17:13 Dose: 1,000 mg Documented by: Metoclopramide HCl (Reglan) 10 mg IVP Q6H PRN PRN Reason: Nausea And Vomiting Last Admin: 01/21/19 22:45 Dose: 10 mg Documented by: Metoprolol Tartrate (Lopressor) 50 mg PO BID [facility] Last Admin: 01/24/19 07:39 Dose: 50 mg Documented by: Naloxone HCl (Narcan) 0.2 mg IV Q2M PRN PRN Reason: Opioid Reversal Ondansetron HCl (Zofran) 4 mg IVP Q8HR PRN PRN Reason: Nausea And Vomiting Last Admin: 01/24/19 17:44 Dose: 4 mg Documented by: Oxycodone HCl (Oxycontin 20mg E.R.) 20 mg PO BID PRN PRN Reason: Moderate Pain Control Last Admin: 01/24/19 17:16 Dose: 20 mg Documented by: Potassium Chloride (K-Dur 20) 20 meq PO DAILY [facility] Last Admin: 01/24/19 07:39 Dose: 20 meq Documented by: Prednisone () 5 mg PO 1200 [facility] Last Admin: 01/24/19 12:29 Dose: 5 mg Documented by: Trimethoprim/Sulfamethoxazole (Bactrim Ds) 1 each PO BID [facility] Last Admin: 01/24/19 14:28 Dose: 1 each Documented by: On examination: VITAL SIGNS: 98.9, 70, 16, 100/52, 98% room air GENERAL APPEARANCE: Laying in bed, tired HEENT: Normal external appearance of nose and ear. Oral cavity normal EYES: Pupils equal. Conjunctiva pale NECK: JVD not raised. Mass not palpable. RESPIRATORY: Respiratory effort normal. Lungs clear to auscultation. CARDIOVASCULAR: First and second sounds normal. No edema. ABDOMEN: Soft. Liver and spleen not palpable. Minimal tenderness. No mass palpable. MASTER drain with bloody drainage. Abdominal dressing in place. Bruising on the right side of the abdomen has been present PSYCHIATRY: Alert and oriented x3. Mood and affect anxious. Investigations: White count 16.1 hemoglobin 6.9 potassium 3.6 creatinine 0.58 C. diff negative Computed tomography scan abdomen-postop ileus resolving anterior abdominal wall subcutaneous collection Previous labs White count 28.4 hemoglobin 6.9 Assessment: -Acute recurrent blood loss anemia from bleeding at the operative site, significantly, especially through the MASTER drain. Status post 1 unit of blood. -Reversal of eliquis with K Centra -Status post Incisional hernia repair -Paroxysmal atrial fibrillation on eliquis, currently held as -Coronary artery disease and history of CABG -Essential hypertension -Hyperlipidemia -Diabetes mellitus type 2 -Hypothyroidism -Primary osteoarthritis -Peripheral arterial disease -Anxiety depression otherwise specified Plan: Under the unit of blood was ordered today. Keep a close eye on hemoglobin and hemodynamics. Continue current medication for plan.
[2019-01-24 20:11] LABS: Anisocytosis Slight; Basophils # (A) 0.1 k/uL (0-0.2); Basophils % (A) 1 %; Eosinophils # (A) 0.4 k/uL (0-0.7); Eosinophils % (A) 3 %; HCT 24.7 % (34.0-46.0); Hypochromasia Moderate; Lymphocytes # (A) 1.3 k/uL (1.0-4.8); Lymphocytes % (A) 9 %; MCH 26.2 pg (25.0-35.0); MCHC 32.5 g/dL (31.0-37.0); MCV 80.5 fL (80.0-100.0); Mean Platelet Volume 6.1; Monocytes # (A) 0.6 k/uL (0-1.0); Monocytes % (A) 4 %; Neutrophils # (A) 12.3 k/uL (1.3-7.7); Neutrophils % (A) 83 %; Platelet Count 438 k/uL (150-450); Poikilocytosis Slight; RBC 3.07 m/uL (3.80-5.40); RDW 16.6 % (11.5-15.5); WBC 14.8 k/uL (3.8-10.6)
[2019-01-24 21:10] LABS: Glucose,Whole Blood 118 mg/dL (75-99)
[2019-01-24] MEDS: ATORVASTATIN 40 MG TAB PO SCH (21:24)
[2019-01-24] MEDS: DULoxetine HCL 60 MG CAPSULE.DR PO SCH (21:24)
[2019-01-24] MEDS: LATANOPROST 0.005% OPHTH DROPS 2.5 ML BTL BOTH EYES SCH (21:24)
[2019-01-25] MEDS: LEVOTHYROXINE 88 MCG TAB PO SCH (04:01)
[2019-01-25] MEDS: oxyCODONE ER 20 MG TAB.ER.12H PO PRN ×3 (04:01→23:53)
[2019-01-25 07:00] LABS: Glucose,Whole Blood 80 mg/dL (75-99)
[2019-01-25 07:36] LABS: ALT 21 U/L (9-52); AST 17 U/L (14-36); African American GFR (CKD) >90 (>60 ml/min/1.73 sqM); Albumin 2.7 g/dL (3.5-5.0); Alkaline Phosphatase 144 U/L (38-126); Anion Gap 8 mmol/L; Anisocytosis Slight; Basophils # (A) 0.2 k/uL (0-0.2); Basophils % (A) 1 %; Blood Urea Nitrogen 4 mg/dL (7-17); Calcium 8.7 mg/dL (8.4-10.2); Carbon Dioxide 21 mmol/L (22-30); Chloride 111 mmol/L (98-107); Eosinophils # (A) 0.9 k/uL (0-0.7); Eosinophils % (A) 6 %; Glucose 75 mg/dL (74-99); HCT 27.6 % (34.0-46.0); HGB 8.5 gm/dL (11.4-16.0); Hypochromasia Marked; Lymphocytes # (A) 2.2 k/uL (1.0-4.8); Lymphocytes % (A) 15 %; MCH 25.5 pg (25.0-35.0); MCHC 30.9 g/dL (31.0-37.0); MCV 82.4 fL (80.0-100.0); Mean Platelet Volume 7.3; Monocytes # (A) 0.9 k/uL (0-1.0); Monocytes % (A) 6 %; Neutrophils # (A) 10.5 k/uL (1.3-7.7); Neutrophils % (A) 71 %; Platelet Count 477 k/uL (150-450); Poikilocytosis Slight; Potassium 3.8 mmol/L (3.5-5.1); RBC 3.35 m/uL (3.80-5.40); RDW 17.3 % (11.5-15.5); Sodium 140 mmol/L (137-145); Total Bilirubin 0.4 mg/dL (0.2-1.3); Total Protein 5.1 g/dL (6.3-8.2); WBC 14.9 k/uL (3.8-10.6)
[2019-01-25] MEDS: POTASSIUM CHLORIDE ER 20 MEQ TAB.ER PO SCH (08:03)
[2019-01-25] MEDS: glipiZIDE 5 MG TAB PO SCH ×2 (08:04→17:10)
[2019-01-25] MEDS: SULFAMETHOX-TMP 800-160MG 1 EACH TAB PO SCH ×2 (08:04→20:47)
[2019-01-25] MEDS: metFORMIN 500 MG TAB PO SCH ×2 (08:04→17:11)
[2019-01-25] MEDS: CILOSTAZOL 100 MG TAB PO SCH (08:04)
[2019-01-25] MEDS: METOPROLOL TARTRATE 50 MG TAB PO SCH ×3 (08:06→20:53)
[2019-01-25] MEDS: INSULIN ASPART (NovoLOG) 100 UNIT/ML VIAL SQ SCH ×4 (08:06→20:46)
--- NOTE | 2019-01-25 11:58 | P.PN ---
Subjective Progress Note Date: 01/25/19 CHIEF COMPLAINT: Incisional hernia HISTORY OF PRESENT ILLNESS: Patient is s/p open incisional hernia repair performed on 10/18/18. Patient examined at the bedside this morning. She reports mild abdominal tenderness. Denies nausea or vomiting. Tolerating diet. WBC 14.9. Hemoglobin 8.5. She has received 2 units of blood thus far. MASTER with 200cc of drainage over the past 24 hours per EMR. Repeat CT performed yesterday resolving anterior abdominal wall subcutaneous collection. PHYSICAL EXAM: VITAL SIGNS: Reviewed. GENERAL: Well-developed in no acute distress. Pale. HEENT: No sclera icterus. Extraocular movements grossly intact. Moist buccal mucosa. Head is atraumatic, normocephalic. ABDOMEN: Obese. Soft. Nondistended. Appropriate surgical tenderness. Dressing to midline with shadowing present. MASTER drain with sanguinous drainage. Abdominal binder present. NEUROLOGIC: Alert and oriented. Cranial nerves II through XII grossly intact. ASSESSMENT: 1. Status post open repair of incisional hernia 2. Acute blood loss anemia secondary to abdominal wall hematoma PLAN: -Continue to hold Eliquis -SCDs for DVT prophylaxis -Continue diet as tolerated -Monitor hemoglobin -Monitor drainage from MASTER drain -Dr. Montoya would like patient continued on Bactrim in an attempt to prevent i nfection from abdominal wall hematoma -Anticipate discharge on Monday Nurse practitioner note has been reviewed by physician. Signing provider agrees with the documented findings, assessment, and plan of care. Objective - Vital Signs Vital signs: Vital Signs Temp 98.2 F 01/25/19 07:00 Pulse 70 01/25/19 07:00 Resp 18 01/25/19 07:00 BP 107/59 01/25/19 07:00 Pulse Ox 96 01/25/19 07:00 Intake & Output 01/24/19 01/25/19 01/25/19 18:59 06:59 18:59 Intake Total 310 Output Total 100 100 Balance 210 -100 Weight 85.275 kg Intake: Blood Product 310 Rc Cpda-1 Unit 310 [id number] Output: Drainage 100 100 Abdomen 100 100 Other: Voiding Method Toilet Toilet Diaper Diaper Incontinent Incontinent # Voids 2 1 - Labs CBC & Chem 7: 01/25/19 07:01 01/25/19 07:01 Labs: Abnormal Lab Results - Last 24 Hours (Table) 01/22/19 01/24/19 01/24/19 Range/Units 08:31 16:49 19:11 WBC 14.8 H (3.8-10.6) k/uL RBC 3.07 L (3.80-5.40) m/uL Hgb 8.0 L (11.4-16.0) gm/dL Hct 24.7 L (34.0-46.0) % MCHC (31.0-37.0) g/dL RDW 16.6 H (11.5-15.5) % Plt Count (150-450) k/uL Neutrophils # 12.3 H (1.3-7.7) k/uL Eosinophils # (0-0.7) k/uL Chloride (98-107) mmol/L Carbon Dioxide (22-30) mmol/L BUN (7-17) mg/dL POC Glucose (mg/dL) 139 H (75-99) mg/dL Alkaline Phosphatase (38-126) U/L Total Protein (6.3-8.2) g/dL Albumin (3.5-5.0) g/dL Crossmatch See Detail 01/24/19 01/25/19 01/25/19 Range/Units 20:58 07:01 07:01 WBC 14.9 H (3.8-10.6) k/uL RBC 3.35 L (3.80-5.40) m/uL Hgb 8.5 L (11.4-16.0) gm/dL Hct 27.6 L (34.0-46.0) % MCHC 30.9 L (31.0-37.0) g/dL RDW 17.3 H (11.5-15.5) % Plt Count 477 H (150-450) k/uL Neutrophils # 10.5 H (1.3-7.7) k/uL Eosinophils # 0.9 H (0-0.7) k/uL Chloride 111 H (98-107) mmol/L Carbon Dioxide 21 L (22-30) mmol/L BUN 4 L (7-17) mg/dL POC Glucose (mg/dL) 118 H (75-99) mg/dL Alkaline Phosphatase 144 H (38-126) U/L Total Protein 5.1 L (6.3-8.2) g/dL Albumin 2.7 L (3.5-5.0) g/dL Crossmatch
[2019-01-25 12:06] LABS: Glucose,Whole Blood 126 mg/dL (75-99)
[2019-01-25] MEDS: AMIODARONE 100 MG TAB PO SCH (12:28)
[2019-01-25] MEDS: predniSONE 5 MG TAB PO SCH (12:28)
[2019-01-25] MEDS: SODIUM CHLORIDE 0.9% 1,000 ML IV SCH (12:29)
--- NOTE | 2019-01-25 12:41 | P.OP ---
Date of Procedure: 01/17/19 Preoperative Diagnosis: Incisional hernia Postoperative Diagnosis: Incisional hernia Procedure(s) Performed: (incisional hernia with mesh Anesthesia: SHARON Surgeon: Christopher Montoya Estimated Blood Loss (ml): 25 Pathology: none sent Condition: stable Disposition: PACU Description of Procedure: The patient was placed on the operating table in supine position. She had a incisional hernia related to a previous midline incision. The hernia is quite large and extended the entire length the scar. This point the skin was incised and then using blunt and sharp dissection with cautery the fascia was dissected free from subcutaneous tissues. Hernia sac was then dissected free from subcutaneous tissue. The fascia was reapproximated using #1 strapping suture. The hernia sac was inverted back into the perineal cavity. At this point a Prolene mesh was placed over top the repair and secured the circular strap tacker. A MASTER drains placed on top of the mesh and brought through separate stab incision. Olu's fascia closed with 0 Vicryl suture. Skin was closed andrei. Patient top she will was sent to recovery room in stable condition.
[2019-01-25 16:33] LABS: Glucose,Whole Blood 104 mg/dL (75-99)
[2019-01-25 20:37] LABS: Glucose,Whole Blood 184 mg/dL (75-99)
[2019-01-25] MEDS: LATANOPROST 0.005% OPHTH DROPS 2.5 ML BTL BOTH EYES SCH (20:47)
[2019-01-25] MEDS: DULoxetine HCL 60 MG CAPSULE.DR PO SCH (20:47)
[2019-01-25] MEDS: ATORVASTATIN 40 MG TAB PO SCH (20:47)
--- NOTE | 2019-01-25 22:31 | P.PN ---
Progress Note - Text Progress Note Date: 01/25/19 Interval history: Patient is a 73-year-old female with a known history of paroxysmal atrial fibr illation on anticoagulation with Eliquis, coronary artery disease status post CABG and history of cardiac catheterization, diabetes type 2 [id number]-crbocmpql, hypertension, hyperlipidemia, memory impairment and hypothyroidism as well as osteoarthritis and other multiple medical problems was admitted to the hospital for elective incisional hernia repair. Patient tolerated the procedure well. Patient subsequently was having increasing bloody drainage from the MASTER drain. Had been on eliquis. This was discontinued. Patient is given KCentra. on January 22. Patient continues to have bloody drainage from her MASTER drain. Tolerating a diet. Had a bowel movement. Laying in bed. No abdominal pain. Review of systems: Was done for constitutional, cardiovascular, GI, pulmonary. relevant finding as above Active Medications Acetaminophen (Tylenol Tab) 650 mg PO Q4HR PRN PRN Reason: Fever and/ or Mild Pain Last Admin: 01/22/19 04:36 Dose: 650 mg Documented by: Hydrocodone Bitart/Acetaminophen ([place] 5-325) 1 each PO Q6HR PRN PRN Reason: Pain Last Admin: 01/24/19 21:23 Dose: 1 each Documented by: Al Hydroxide/Mg Hydroxide (Maalox) 30 ml PO Q4HR PRN PRN Reason: GI Upset Last Admin: 01/22/19 07:07 Dose: 30 ml Documented by: Amiodarone HCl (Cordarone) 100 mg PO 1200 [facility] Last Admin: 01/25/19 12:28 Dose: 100 mg Documented by: Atorvastatin Calcium (Lipitor) 40 mg PO HS [facility] Last Admin: 01/25/19 20:47 Dose: 40 mg Documented by: Cilostazol (Pletal) 100 mg PO DAILY [facility] Last Admin: 01/25/19 08:04 Dose: 100 mg Documented by: Duloxetine HCl (Cymbalta) 60 mg PO HS [facility] Last Admin: 01/25/19 20:47 Dose: 60 mg Documented by: Ergocalciferol (Vitamin D2) 50,000 unit PO [place] [facility] Last Admin: 01/20/19 12:51 Dose: 50,000 unit Documented by: Glipizide (Glucotrol) 2.5 mg PO AC-BID [facility] Last Admin: 01/25/19 17:10 Dose: 2.5 mg Documented by: Sodium Chloride (Saline 0.9%) 1,000 mls @ 50 mls/hr IV .Q20H [facility] Last Admin: 01/25/19 12:29 Dose: Not Given Documented by: Insulin Aspart (Novolog) 0 unit SQ ACHS [facility]; Protocol Last Admin: 01/25/19 20:46 Dose: 2 unit Documented by: Latanoprost (Xalatan 0.005%) 1 drops BOTH EYES [facility] Last Admin: 01/25/19 20:47 Dose: 1 drops Documented by: Levothyroxine Sodium (Synthroid) 88 mcg PO 0630 [facility] Last Admin: 01/25/19 04:01 Dose: 88 mcg Documented by: Lidocaine HCl (.Xylocaine 1% Inj (10mg/Ml) For Iv Start) 0.1 ml INTRADERMA PER PROTOCOL PRN PRN Reason: IV Start Last Admin: 01/18/19 06:57 Dose: 0.1 ml Documented by: Metformin HCl (Glucophage) 1,000 mg PO BID-W/MEALS [facility] Last Admin: 01/25/19 17:11 Dose: 1,000 mg Documented by: Metoclopramide HCl (Reglan) 10 mg IVP Q6H PRN PRN Reason: Nausea And Vomiting Last Admin: 01/21/19 22:45 Dose: 10 mg Documented by: Metoprolol Tartrate (Lopressor) 50 mg PO BID [facility] Last Admin: 01/25/19 20:53 Dose: Not Given Documented by: Naloxone HCl (Narcan) 0.2 mg IV Q2M PRN PRN Reason: Opioid Reversal Ondansetron HCl (Zofran) 4 mg IVP Q8HR PRN PRN Reason: Nausea And Vomiting Last Admin: 01/24/19 17:44 Dose: 4 mg Documented by: Oxycodone HCl (Oxycontin 20mg E.R.) 20 mg PO BID PRN PRN Reason: Moderate Pain Control Last Admin: 01/25/19 16:07 Dose: 20 mg Documented by: Potassium Chloride (K-Dur 20) 20 meq PO DAILY [facility] Last Admin: 01/25/19 08:03 Dose: 20 meq Documented by: Prednisone () 5 mg PO 1200 [facility] Last Admin: 01/25/19 12:28 Dose: 5 mg Documented by: Trimethoprim/Sulfamethoxazole (Bactrim Ds) 1 each PO BID [facility] Last Admin: 01/25/19 20:47 Dose: 1 each Documented by: On examination: VITAL SIGNS: 98.5, 70, 16, 102/52, 97% room air GENERAL APPEARANCE: Laying in bed, tired HEENT: Normal external appearance of nose and ear. Oral cavity normal EYES: Pupils equal. Conjunctiva pale NECK: JVD not raised. Mass not palpable. RESPIRATORY: Respiratory effort normal. Lungs clear to auscultation. CARDIOVASCULAR: First and second sounds normal. No edema. ABDOMEN: Soft. Liver and spleen not palpable. Minimal tenderness. No mass palpable. MASTER drain with bloody drainage. Abdominal dressing in place. Bruising on the right side of the abdomen has been present PSYCHIATRY: Alert and oriented x3. Mood and affect anxious. Investigations: White count 14.9 hemoglobin 8.5 creatinine 0.58 C. diff negative Computed tomography scan abdomen-postop ileus resolving anterior abdominal wall subcutaneous collection Previous labs White count 28.4 hemoglobin 6.9 Assessment: -Acute recurrent blood loss anemia from bleeding at the operative site, significantly, especially through the MASTER drain. Status post 2 unit of blood. -Reversal of eliquis with K Centra -Status post Incisional hernia repair -Paroxysmal atrial fibrillation on eliquis, currently held as -Coronary artery disease and history of CABG -Essential hypertension -Hyperlipidemia -Diabetes mellitus type 2 -Hypothyroidism -Primary osteoarthritis -Peripheral arterial disease -Anxiety depression otherwise specified Plan: Patient continues to have significant bloody drainage that is a MASTER drain. Keep a close and hemodynamics in the CBC.. Care was discussed with the patient. Follow with Dr. Montoya.
[2019-01-26] MEDS: ONDANSETRON 4 MG/2 ML VIAL IVP PRN (02:19)
[2019-01-26] MEDS: LEVOTHYROXINE 88 MCG TAB PO SCH (05:22)
[2019-01-26 07:02] LABS: Glucose,Whole Blood 89 mg/dL (75-99)
[2019-01-26 07:07] LABS: Anisocytosis Slight; Basophils # (A) 0.1 k/uL (0-0.2); Basophils % (A) 1 %; Eosinophils # (A) 0.7 k/uL (0-0.7); Eosinophils % (A) 5 %; HCT 25.9 % (34.0-46.0); HGB 8.1 gm/dL (11.4-16.0); Hypochromasia Moderate; Lymphocytes % (A) 15 %; MCH 25.8 pg (25.0-35.0); MCHC 31.5 g/dL (31.0-37.0); Mean Platelet Volume 6.8; Monocytes # (A) 0.8 k/uL (0-1.0); Monocytes % (A) 6 %; Neutrophils # (A) 10.1 k/uL (1.3-7.7); Neutrophils % (A) 72 %; Platelet Count 471 k/uL (150-450); RBC 3.16 m/uL (3.80-5.40); RDW 17.5 % (11.5-15.5)
[2019-01-26] MEDS: INSULIN ASPART (NovoLOG) 100 UNIT/ML VIAL SQ SCH ×4 (07:17→19:58)
[2019-01-26] MEDS: HYDROcodone/APAP 5-325MG 1 EACH TAB PO PRN ×2 (07:45→19:42)
[2019-01-26] MEDS: METOCLOPRAMIDE 5 MG/ML 2 ML VIAL IVP PRN (07:45)
[2019-01-26] MEDS: metFORMIN 500 MG TAB PO SCH ×2 (07:46→17:04)
[2019-01-26] MEDS: glipiZIDE 5 MG TAB PO SCH ×2 (07:47→17:05)
[2019-01-26] MEDS: SULFAMETHOX-TMP 800-160MG 1 EACH TAB PO SCH (07:47)
[2019-01-26] MEDS: POTASSIUM CHLORIDE ER 20 MEQ TAB.ER PO SCH (07:47)
[2019-01-26] MEDS: METOPROLOL TARTRATE 50 MG TAB PO SCH ×2 (07:47→19:58)
[2019-01-26] MEDS: CILOSTAZOL 100 MG TAB PO SCH (07:48)
[2019-01-26] MEDS: SODIUM CHLORIDE 0.9% 1,000 ML IV SCH (07:49)
[2019-01-26 11:35] LABS: Glucose,Whole Blood 131 mg/dL (75-99)
[2019-01-26] MEDS: AMIODARONE 100 MG TAB PO SCH (12:17)
[2019-01-26] MEDS: predniSONE 5 MG TAB PO SCH (12:17)
[2019-01-26] MEDS: oxyCODONE ER 20 MG TAB.ER.12H PO PRN (12:20)
--- NOTE | 2019-01-26 12:51 | P.PN ---
Subjective Progress Note Date: 01/26/19 CHIEF COMPLAINT: Incisional hernia HISTORY OF PRESENT ILLNESS: The patient is a 73-year-old female status post incisional hernia repair, 01/18/19. She is POD 8. She reports intolerance from Bactrim. She has history of EBSL from prior hospitalizations. She reports upset stomach and diarrhea on her current antibiotic. "Nothing tastes good." ROS: No fevers or chills. No new chest pain. No productive sputum PHYSICAL EXAM: VITAL SIGNS: Reviewed CONSTITUTIONAL: Well developed and in no acute distress. EYES: Conjuctivae without sclera icterus. Extraocular movements grossly intact. HEAD, EARS, NOSE, THROAT: Moist buccal mucosa. Head is atraumatic, normocephalic. Hears conversational speech. No nasal drainage. RESPIRATORY: Non-labored respirations and equal bilateral excursions. CARDIOVASCULAR: Palpable 2+ radial pulses. Regular rate. Regular rhythm. ABDOMEN: Incisions clean dry and intact. Soft. No peritonitis. MUSCULOSKELETAL: No gross deformity of the lower extremities noted. No clubbing. No cyanosis. SKIN: Good skin turgor. Well perfused. NEUROLOGIC: Cranial nerves I through XII grossly intact. No focal or lateralizing signs. PSYCH: Appropriate affect. Alert and oriented to person, place and time. CLINCAL LABS: White blood cell count 14,000 and improving. ASSESSMENT: 1. Incisional hernia PLAN: 1. Infectious consultation for history of ESBL and multiple drug resistance 2. Continue hospitalization as she has high risk for re-admission Objective - Vital Signs Vital signs: Vital Signs Temp 98.6 F 01/26/19 07:15 Pulse 80 01/26/19 07:15 Resp 16 01/26/19 07:15 BP 142/72 01/26/19 07:15 Pulse Ox 97 01/26/19 07:15 Intake & Output 01/25/19 01/26/19 01/26/19 18:59 06:59 18:59 Output Total 140 65 60 Balance -140 -65 -60 Output: Drainage 140 65 60 Abdomen 140 65 60 Other: Voiding Method Toilet Toilet Toilet Diaper Incontinent # Voids 1 1 # Bowel Movements 1 1 - Labs CBC & Chem 7: 01/26/19 06:42 01/25/19 07:01 Labs: Abnormal Lab Results - Last 24 Hours (Table) 01/25/19 01/25/19 01/26/19 Range/Units 16:30 20:36 06:42 WBC 14.0 H (3.8-10.6) k/uL RBC 3.16 L (3.80-5.40) m/uL Hgb 8.1 L (11.4-16.0) gm/dL Hct 25.9 L (34.0-46.0) % RDW 17.5 H (11.5-15.5) % Plt Count 471 H (150-450) k/uL Neutrophils # 10.1 H (1.3-7.7) k/uL POC Glucose (mg/dL) 104 H 184 H (75-99) mg/dL 01/26/19 Range/Units 11:31 WBC (3.8-10.6) k/uL RBC (3.80-5.40) m/uL Hgb (11.4-16.0) gm/dL Hct (34.0-46.0) % RDW (11.5-15.5) % Plt Count (150-450) k/uL Neutrophils # (1.3-7.7) k/uL POC Glucose (mg/dL) 131 H (75-99) mg/dL Assessment and Plan (1) Incisional hernia Current Visit: Yes Status: Acute Code(s): K43.2 - INCISIONAL HERNIA WITHOUT OBSTRUCTION OR GANGRENE SNOMED Code(s): 350649760 (2) Abdominal abscess Current Visit: No Status: Acute Code(s): NHO1054 - SNOMED Code(s): 31936184 (3) Appetite loss Current Visit: No Status: Acute Code(s): R63.0 - ANOREXIA SNOMED Code(s): 58432800
[2019-01-26 16:41] LABS: Glucose,Whole Blood 150 mg/dL (75-99)
[2019-01-26] MEDS: ATORVASTATIN 40 MG TAB PO SCH (19:58)
[2019-01-26] MEDS: DULoxetine HCL 60 MG CAPSULE.DR PO SCH (19:58)
[2019-01-26] MEDS: LATANOPROST 0.005% OPHTH DROPS 2.5 ML BTL BOTH EYES SCH (19:58)
[2019-01-26 20:08] LABS: Glucose,Whole Blood 120 mg/dL (75-99)
--- NOTE | 2019-01-26 21:04 | P.PN ---
Progress Note - Text Progress Note Date: 01/26/19 Interval history: Patient is a 73-year-old female with a known history of paroxysmal atrial fibr illation on anticoagulation with Eliquis, coronary artery disease status post CABG and history of cardiac catheterization, diabetes type 2 [id number], hypertension, hyperlipidemia, memory impairment and hypothyroidism as well as osteoarthritis and other multiple medical problems was admitted to the hospital for elective incisional hernia repair. Patient tolerated the procedure well. Patient subsequently was having increasing bloody drainage from the MASTER drain. Had been on eliquis. This was discontinued. Patient is given KCentra. on January 22. Today-a bit tired. Having some diarrhea. No abdominal pain. Her nausea vomiting. Tolerating a diet. Still having of significant bloody secretions through the MASTER drain. Review of systems: Was done for constitutional, cardiovascular, GI, pulmonary. relevant finding as above Active Medications Acetaminophen (Tylenol Tab) 650 mg PO Q4HR PRN PRN Reason: Fever and/ or Mild Pain Last Admin: 01/22/19 04:36 Dose: 650 mg Documented by: Hydrocodone Bitart/Acetaminophen ([place] 5-325) 1 each PO Q6HR PRN PRN Reason: Pain Last Admin: 01/26/19 19:42 Dose: 1 each Documented by: Al Hydroxide/Mg Hydroxide (Maalox) 30 ml PO Q4HR PRN PRN Reason: GI Upset Last Admin: 01/22/19 07:07 Dose: 30 ml Documented by: Amiodarone HCl (Cordarone) 100 mg PO 1200 [facility] Last Admin: 01/26/19 12:17 Dose: 100 mg Documented by: Atorvastatin Calcium (Lipitor) 40 mg PO HS [facility] Last Admin: 01/26/19 19:58 Dose: 40 mg Documented by: Cilostazol (Pletal) 100 mg PO DAILY [facility] Last Admin: 01/26/19 07:48 Dose: 100 mg Documented by: Duloxetine HCl (Cymbalta) 60 mg PO HS [facility] Last Admin: 01/26/19 19:58 Dose: 60 mg Documented by: Ergocalciferol (Vitamin D2) 50,000 unit PO [place] [facility] Last Admin: 01/20/19 12:51 Dose: 50,000 unit Documented by: Glipizide (Glucotrol) 2.5 mg PO AC-BID [facility] Last Admin: 01/26/19 17:05 Dose: 2.5 mg Documented by: Sodium Chloride (Saline 0.9%) 1,000 mls @ 50 mls/hr IV .Q20H [facility] Last Admin: 01/26/19 07:49 Dose: 50 mls/hr Documented by: Insulin Aspart (Novolog) 0 unit SQ ACHS [facility]; Protocol Last Admin: 01/26/19 19:58 Dose: Not Given Documented by: Latanoprost (Xalatan 0.005%) 1 drops BOTH EYES HS [facility] Last Admin: 01/26/19 19:58 Dose: 1 drops Documented by: Levothyroxine Sodium (Synthroid) 88 mcg PO 0630 [facility] Last Admin: 01/26/19 05:22 Dose: 88 mcg Documented by: Lidocaine HCl (.Xylocaine 1% Inj (10mg/Ml) For Iv Start) 0.1 ml INTRADERMA PER PROTOCOL PRN PRN Reason: IV Start Last Admin: 01/18/19 06:57 Dose: 0.1 ml Documented by: Metformin HCl (Glucophage) 1,000 mg PO BID-W/MEALS [facility] Last Admin: 01/26/19 17:04 Dose: 1,000 mg Documented by: Metoclopramide HCl (Reglan) 10 mg IVP Q6H PRN PRN Reason: Nausea And Vomiting Last Admin: 01/26/19 07:45 Dose: 10 mg Documented by: Metoprolol Tartrate (Lopressor) 50 mg PO BID [facility] Last Admin: 01/26/19 19:58 Dose: 50 mg Documented by: Naloxone HCl (Narcan) 0.2 mg IV Q2M PRN PRN Reason: Opioid Reversal Ondansetron HCl (Zofran) 4 mg IVP Q8HR PRN PRN Reason: Nausea And Vomiting Last Admin: 01/26/19 02:19 Dose: 4 mg Documented by: Oxycodone HCl (Oxycontin 20mg E.R.) 20 mg PO BID PRN PRN Reason: Moderate Pain Control Last Admin: 01/26/19 12:20 Dose: 20 mg Documented by: Potassium Chloride (K-Dur 20) 20 meq PO DAILY [facility] Last Admin: 01/26/19 07:47 Dose: 20 meq Documented by: Prednisone () 5 mg PO 1200 [facility] Last Admin: 01/26/19 12:17 Dose: 5 mg Documented by: On examination: VITAL SIGNS: 98, 85, 18, 1 58 x 79, 98% room air GENERAL APPEARANCE: Laying in bed, awake HEENT: Normal external appearance of nose and ear. Oral cavity normal EYES: Pupils equal. Conjunctiva pale NECK: JVD not raised. Mass not palpable. RESPIRATORY: Respiratory effort normal. Lungs clear to auscultation. CARDIOVASCULAR: First and second sounds normal. No edema. ABDOMEN: Soft. Liver and spleen not palpable. Minimal tenderness. No mass palpable. MASTER drain with bloody drainage. Abdominal dressing in place. PSYCHIATRY: Alert and oriented x3. Mood and affect anxious. Investigations: Hemoglobin 8.1 platelets 471 C. diff negative Computed tomography scan abdomen-postop ileus resolving anterior abdominal wall subcutaneous collection Previous labs White count 28.4 hemoglobin 6.9 Assessment: -Acute recurrent blood loss anemia from bleeding at the operative site, significantly, especially through the MASTER drain. Status post 2 unit of blood. -Reversal of eliquis with K Centra -Status post Incisional hernia repair -Paroxysmal atrial fibrillation on eliquis, currently held as -Coronary artery disease and history of CABG -Essential hypertension -Hyperlipidemia -Diabetes mellitus type 2 -Hypothyroidism -Primary osteoarthritis -Peripheral arterial disease -Anxiety depression otherwise specified Plan: Patient started having significant drainage from the MASTER drain. Bloody. I'm afraid she'll drop her hemoglobin again. Repeat CBC in the morning. In
--- NOTE | 2019-01-27 00:27 | P.CONS ---
History of Present Illness - Reason for Consult Consult date: 01/26/19 pt intolerant of oral bactrim ds , need for different antibiotics Requesting physician: Hien Carlton - Chief Complaint gastric upset from bactrim ds - History of Present Illness Patient is a 73-year-old female who has been electively admitted to the hospital on 01/18/2019 for incisional abdominal hernia repair which was completed on 01/18/2019 patient postoperative course has been complicated by development of bloody secretion through the MASTER drains and she did have drop in her hemoglobin requiring blood transfusion patient also noticed to have a significant elevated white count of 30,000 this seems to have been trending down and is currently at 14,000 patient did have a CT of abdominal pelvis completed on 01/22/19 which she did shows a new mild thickening of the rectus abdominal muscle suggestive of mild diffuse intramuscular hemorrhage repeat CT done on 2018 tissues overall resolution of the fluid collection, patient was complaining to the surgeon on the rounds today inability to speak to take oral Bactrim DS and was requesting if her antibiotic can be discontinued or switched to a different agent patient currently denies having any fever or any chills no chest pain shortness of breath or cough abdominal pain is currently improving s till have output in her MASTER drain and denies having any worsening diarrhea she did have stool for C. difficile came back negative and her review of surgery note Dr. Pradhan want the patient to be on Bactrim DS to prevent infection of the abdominal wall hematoma. Review of Systems CONSTITUTIONAL: Positive for weakness. no Fever EYES: No complaint. ENT:No complaint. RESPIRATORY: No complaint. CARDIOVASCULAR: No complaint. GENITOURINARY: No complaint. GASTROINTESTINAL: as per HPI MUSCULOSKELETAL: No complaint. INTEGUMENTARY: No complaint. PSYCHOLOGICAL: No complaint. ENDOCRINE: No complaint. NEUROLOGIC: No complaint. All systems: negative Constitutional: Denies chills, Denies fever Eyes: denies blurred vision, denies pain Ears, nose, mouth and throat: Denies headache, Denies sore throat Cardiovascular: Denies chest pain, Denies shortness of breath Respiratory: Denies cough Gastrointestinal: Denies abdominal pain, Denies diarrhea, Denies nausea, Denies vomiting Genitourinary: Denies dysuria, Denies hematuria Musculoskeletal: Denies myalgias Integumentary: Denies pruritus, Denies rash Neurological: Denies numbness, Denies weakness Psychiatric: Denies anxiety, Denies depression Endocrine: Denies fatigue, Denies weight change Past Medical History Past Medical History: Atrial Fibrillation, Coronary Artery Disease (CAD), Diabetes Mellitus, Hyperlipidemia, Hypertension, Memory Impairment, Musculoskeletal Disorder, Osteoarthritis (OA), Thyroid Disorder, Vascular Disorder Additional Past Medical History / Comment(s): Pt. states poor circulation in RLE due to an artificial bypass. Chronic back pain, bilateral shoulder problems due to Degenerative Joint Disease/arthritis. Chronic diarrhea. Chronic high WBC count. Patient states "Dr Montoya aware, waiting to hear if he will do surgery or not due to WBC level, also having a repeat EKG today, ordered by Dr Montoya." "Forgetful." Vertigo at times. History of Any Multi-Drug Resistant Organisms: ESBL Year Discovered:: 03/04/18 MDRO Source:: BODY FLUID ASPIRATE Past Surgical History: Appendectomy, Bowel Resection, Breast Surgery, Cholecystectomy, Coronary Bypass/CABG, Heart Catheterization, Joint Replacement, Orthopedic Surgery Additional Past Surgical History / Comment(s): "Rt leg sx, artificial artery". Bilateral knee replacements. Rt rotator cuff, left breast surgery for benign tumor. Epidurals to lower back. Quad CABG 12-11-17, 12/20/17 colectomy/ileostomy- colostomy and reversal, picc line placement/removal. Past Anesthesia/Blood Transfusion Reactions: No Reported Reaction Past Psychological History: Anxiety, Depression Additional Psychological History / Comment(s): lives in [place] Smoking Status: Former smoker Past Alcohol Use History: None Reported Additional Past Alcohol Use History / Comment(s): started smoking 1965 Quit smoking in 2007, smoked 1 PPD. Past Drug Use History: None Reported - Past Family History Mother Family Medical History: Cancer Additional Family Medical History / Comment(s): Uterine cancer. Father Family Medical History: Congestive Heart Failure (CHF) Medications and Allergies Home Medications Medication Instructions Recorded Confirmed Type DULoxetine HCL [Cymbalta] 60 mg PO HS 12/14/16 01/17/19 History Ergocalciferol (Vitamin D2) 50,000 unit PO COHEN 12/14/16 01/17/19 History [Vitamin D2] Atorvastatin [Lipitor] 40 mg PO HS 01/24/18 01/17/19 History Amiodarone [Cordarone] 100 mg PO 1200 11/02/18 09/19/19 History Furosemide [Lasix] 40 mg PO BID 03/02/18 01/17/19 History Latanoprost/Pf [Latanoprost 0.005% 1 drop BOTH EYES HS 03/02/18 01/17/19 History Eye Drop] Cilostazol [Pletal] 100 mg PO DAILY 11/15/18 01/17/19 History Levothyroxine Sodium [Tirosint] 88 mcg PO QAM 11/15/18 01/17/19 History Losartan Potassium 100 mg PO QAM 11/15/18 01/17/19 History Metoprolol Tartrate [Lopressor] 50 mg PO BID 11/15/18 01/17/19 History Potassium Chloride ER [K-Dur 20] 20 meq PO DAILY 11/15/18 01/17/19 History amLODIPine [Norvasc] 10 mg PO QAM 11/15/18 01/17/19 History metFORMIN HCL [Glucophage] 500 mg PO BID 11/15/18 01/17/19 History oxyCODONE ER [OxyCONTIN] 20 mg PO BID 11/15/18 01/17/19 History predniSONE 5 mg PO 1200 11/15/18 01/17/19 History Loperamide HCl [Imodium] 2 mg PO DAILY 01/17/19 01/17/19 History Ondansetron [Zofran] 8 mg PO DAILY PRN 01/17/19 01/17/19 History Sulfamethox-Tmp 800-160Mg [Bactrim 1 tab PO Q12HR #10 tab 01/25/19 Rx DS 800-160 mg] Allergies Allergy/AdvReac Type Severity Reaction Status Date / Time No Known Allergies Allergy Verified 01/17/19 10:41 Physical Exam Vitals: Vital Signs Temp Pulse Pulse Resp BP BP Pulse Ox 01/26/19 07:15 98.6 F 80 16 142/72 97 01/26/19 01:39 98.0 F 85 18 130/68 96 01/25/19 19:30 98.4 F 84 20 106/55 95 01/25/19 16:00 16 01/25/19 14:10 98.5 F 70 16 102/52 97 Intake and Output 01/25/19 01/26/19 01/26/19 22:59 06:59 14:59 Output Total 100 35 60 Balance -100 -35 -60 Output: Drainage 100 35 60 Abdomen 100 35 60 Other: Voiding Method Toilet Toilet # Voids 1 1 # Bowel Movements 1 1 GENERAL DESCRIPTION: ELDERLY FEMALE lying in bed, no distress. No tachypnea or accessory muscle of respiration use. HEENT: Shows Pallor , no scleral icterus. Oral mucous membrane is dry. No pharyngeal erythema or thrush NECK: Trachea central, no thyromegaly. LUNGS: Unlabored breathing. Clear to auscultation anteriorly. No wheeze or crackle. HEART: S1, S2, regular rate and rhythm. No loud murmur ABDOMEN: Soft, mid line incision intact , bloody secretions in MASTER , no tenderness , guarding or rigidity, no organomegaly EXTREMITIES: No edema of feet. SKIN: No rash, no masses palpable. NEUROLOGICAL: The patient is awake, alert, oriented x3, mood and affect normal. Results CBC & Chem 7: 01/26/19 06:42 01/25/19 07:01 Labs: Abnormal Lab Results - Last 24 Hours (Table) 01/25/19 01/25/19 01/26/19 Range/Units 16:30 20:36 06:42 WBC 14.0 H (3.8-10.6) k/uL RBC 3.16 L (3.80-5.40) m/uL Hgb 8.1 L (11.4-16.0) gm/dL Hct 25.9 L (34.0-46.0) % RDW 17.5 H (11.5-15.5) % Plt Count 471 H (150-450) k/uL Neutrophils # 10.1 H (1.3-7.7) k/uL POC Glucose (mg/dL) 104 H 184 H (75-99) mg/dL 01/26/19 Range/Units 11:31 WBC (3.8-10.6) k/uL RBC (3.80-5.40) m/uL Hgb (11.4-16.0) gm/dL Hct (34.0-46.0) % RDW (11.5-15.5) % Plt Count (150-450) k/uL Neutrophils # (1.3-7.7) k/uL POC Glucose (mg/dL) 131 H (75-99) mg/dL Assessment and Plan Assessment: 1-patient admitted to the hospital electively for incisional hernia repair which was completed on January 20, 2019 with a postop course complicated by hemorrhaging with bloody MASTER drain drop in hemoglobin elevated white count and CT confirmed the finding however currently clinical suspicious is low for infected hematoma and the use of Bactrim DS to prevent infection of this hematoma is also questionable significance as bactrim ds would not cover all the pathogens that may cause an infected abd wall hematoma, the patient currently unable to tolerate oral and is refusing such Plan: 1-discontinue the Bactrim DS 2-May try oral doxycycline 100 mg twice a day hopefully with less gastric side effects and to take it with meals 3-monitor clinical course closely We will follow on clinical condition and cultures to further adjust medication if needed Thank you for this consultation we will follow the patient along with you Time with Patient: Greater than 30
[2019-01-27] MEDS: oxyCODONE ER 20 MG TAB.ER.12H PO PRN ×2 (01:49→21:06)
[2019-01-27] MEDS: SODIUM CHLORIDE 0.9% 1,000 ML IV SCH ×2 (03:46→23:42)
[2019-01-27] MEDS: HYDROcodone/APAP 5-325MG 1 EACH TAB PO PRN ×2 (05:18→11:17)
[2019-01-27] MEDS: LEVOTHYROXINE 88 MCG TAB PO SCH (05:18)
[2019-01-27 07:00] LABS: Glucose,Whole Blood 92 mg/dL (75-99)
[2019-01-27 07:26] LABS: Anisocytosis Slight; Basophils # (A) 0.1 k/uL (0-0.2); Basophils % (A) 1 %; Eosinophils # (A) 0.8 k/uL (0-0.7); Eosinophils % (A) 5 %; HCT 27.4 % (34.0-46.0); HGB 8.8 gm/dL (11.4-16.0); Hypochromasia Moderate; Lymphocytes # (A) 2.6 k/uL (1.0-4.8); Lymphocytes % (A) 17 %; MCHC 32.2 g/dL (31.0-37.0); MCV 80.8 fL (80.0-100.0); Mean Platelet Volume 5.7; Monocytes # (A) 0.9 k/uL (0-1.0); Monocytes % (A) 6 %; Neutrophils # (A) 10.4 k/uL (1.3-7.7); Neutrophils % (A) 70 %; Platelet Count 554 k/uL (150-450); Poikilocytosis Slight; RBC 3.39 m/uL (3.80-5.40); RDW 17.3 % (11.5-15.5)
[2019-01-27] MEDS: INSULIN ASPART (NovoLOG) 100 UNIT/ML VIAL SQ SCH ×4 (08:07→21:04)
[2019-01-27] MEDS: glipiZIDE 5 MG TAB PO SCH ×2 (08:08→17:34)
[2019-01-27] MEDS: metFORMIN 500 MG TAB PO SCH ×2 (08:09→17:35)
[2019-01-27] MEDS: METOPROLOL TARTRATE 50 MG TAB PO SCH ×2 (08:10→21:06)
[2019-01-27] MEDS: POTASSIUM CHLORIDE ER 20 MEQ TAB.ER PO SCH (08:11)
[2019-01-27] MEDS: CILOSTAZOL 100 MG TAB PO SCH (08:11)
[2019-01-27] MEDS: DOXYCYCLINE 100 MG CAP PO SCH ×2 (08:12→21:09)
[2019-01-27] MEDS: AMIODARONE 100 MG TAB PO SCH (11:16)
[2019-01-27] MEDS: ERGOCALCIFEROL 50,000 UNIT CAP PO SCH (11:16)
[2019-01-27] MEDS: predniSONE 5 MG TAB PO SCH (11:16)
[2019-01-27 11:23] LABS: Glucose,Whole Blood 192 mg/dL (75-99)
--- NOTE | 2019-01-27 13:17 | P.PN ---
Subjective Progress Note Date: 01/27/19 CHIEF COMPLAINT: Incisional hernia HISTORY OF PRESENT ILLNESS: The patient is a 73-year-old female status post incisional hernia repair, 01/18/19. She is POD 9. "I feel better." Her antibiotics has been adjusted from Bactrim to doxycycline per infectious disease. No further nausea or abdominal pain since adjustment. ROS: No fevers or chills. No new chest pain. No productive sputum PHYSICAL EXAM: VITAL SIGNS: Reviewed CONSTITUTIONAL: Well developed and in no acute distress. EYES: Conjuctivae without sclera icterus. Extraocular movements grossly intact. HEAD, EARS, NOSE, THROAT: Moist buccal mucosa. Head is atraumatic, normocephalic. Hears conversational speech. No nasal drainage. RESPIRATORY: Non-labored respirations and equal bilateral excursions. CARDIOVASCULAR: Palpable 2+ radial pulses. ABDOMEN: Dressing clean, dry and intact MUSCULOSKELETAL: No gross deformity of the lower extremities noted. No clubbing. No cyanosis. SKIN: Good skin turgor. Well perfused. NEUROLOGIC: Cranial nerves I through XII grossly intact. No focal or lateralizing signs. PSYCH: Appropriate affect. Alert and oriented to person, place and time. CLINCAL LABS: White blood cell count 14,000 up to 15,000 ASSESSMENT: 1. Incisional hernia 2. Leukocytosis PLAN: 1. Continue doxycycline per infectious disease 2. Stable for discharge when medically stable Objective - Vital Signs Vital signs: Vital Signs Temp 98.6 F 01/27/19 07:55 Pulse 77 01/27/19 07:55 Resp 18 01/27/19 07:55 BP 103/66 01/27/19 07:55 Pulse Ox 98 01/27/19 07:55 Intake & Output 01/26/19 01/27/19 01/27/19 18:59 06:59 18:59 Intake Total 2336 891 7663 Output Total 160 50 115 Balance 183 653 0158 Intake: Oral 0873 707 6328 Output: Drainage 160 50 115 Abdomen 160 50 115 Other: Voiding Method Toilet Toilet # Voids 4 3 # Bowel Movements 4 1 - Labs CBC & Chem 7: 01/27/19 06:19 01/25/19 07:01 Labs: Abnormal Lab Results - Last 24 Hours (Table) 01/26/19 01/26/19 01/27/19 Range/Units 16:29 19:57 06:19 WBC 15.0 H (3.8-10.6) k/uL RBC 3.39 L (3.80-5.40) m/uL Hgb 8.8 L (11.4-16.0) gm/dL Hct 27.4 L (34.0-46.0) % RDW 17.3 H (11.5-15.5) % Plt Count 554 H (150-450) k/uL Neutrophils # 10.4 H (1.3-7.7) k/uL Eosinophils # 0.8 H (0-0.7) k/uL POC Glucose (mg/dL) 150 H 120 H (75-99) mg/dL 01/27/19 Range/Units 11:10 WBC (3.8-10.6) k/uL RBC (3.80-5.40) m/uL Hgb (11.4-16.0) gm/dL Hct (34.0-46.0) % RDW (11.5-15.5) % Plt Count (150-450) k/uL Neutrophils # (1.3-7.7) k/uL Eosinophils # (0-0.7) k/uL POC Glucose (mg/dL) 192 H (75-99) mg/dL Assessment and Plan (1) Incisional hernia Current Visit: Yes Status: Acute Code(s): K43.2 - INCISIONAL HERNIA WITHOUT OBSTRUCTION OR GANGRENE SNOMED Code(s): 543887278 (2) Abdominal abscess Current Visit: No Status: Acute Code(s): WUV7880 - SNOMED Code(s): 75050272 (3) Appetite loss Current Visit: No Status: Acute Code(s): R63.0 - ANOREXIA SNOMED Code(s): 89494231 (4) Acute blood loss anemia Current Visit: Yes Status: Acute Code(s): D62 - ACUTE POSTHEMORRHAGIC ANEMIA SNOMED Code(s): 573876817
[2019-01-27 17:13] LABS: Glucose,Whole Blood 142 mg/dL (75-99)
[2019-01-27 21:06] LABS: Glucose,Whole Blood 114 mg/dL (75-99)
[2019-01-27] MEDS: ATORVASTATIN 40 MG TAB PO SCH (21:06)
[2019-01-27] MEDS: DULoxetine HCL 60 MG CAPSULE.DR PO SCH (21:06)
[2019-01-27] MEDS: LATANOPROST 0.005% OPHTH DROPS 2.5 ML BTL BOTH EYES SCH (21:09)
--- NOTE | 2019-01-27 21:17 | P.PN ---
Progress Note - Text Progress Note Date: 01/27/19 Interval history: Patient is a 73-year-old female with a known history of paroxysmal atrial fibr illation on anticoagulation with Eliquis, coronary artery disease status post CABG and history of cardiac catheterization, diabetes type 2 [id number], hypertension, hyperlipidemia, memory impairment and hypothyroidism as well as osteoarthritis and other multiple medical problems was admitted to the hospital for elective incisional hernia repair. Patient tolerated the procedure well. Patient subsequently was having increasing bloody drainage from the MASTER drain. Had been on eliquis. This was discontinued. Patient is given KCentra. on January 22. Today-laying in bed. Has been up in a chair. Starting a diet. Does have some loose stools occasionally. Negative for C. diff. No abdominal pain. Still some blood drainage out of the MASTER drain. Review of systems: Was done for constitutional, cardiovascular, GI, pulmonary. relevant finding as above Active Medications Acetaminophen (Tylenol Tab) 650 mg PO Q4HR PRN PRN Reason: Fever and/ or Mild Pain Last Admin: 01/22/19 04:36 Dose: 650 mg Documented by: Hydrocodone Bitart/Acetaminophen ([place] 5-325) 1 each PO Q6HR PRN PRN Reason: Pain Last Admin: 01/27/19 11:17 Dose: 1 each Documented by: Al Hydroxide/Mg Hydroxide (Maalox) 30 ml PO Q4HR PRN PRN Reason: GI Upset Last Admin: 01/22/19 07:07 Dose: 30 ml Documented by: Amiodarone HCl (Cordarone) 100 mg PO 1200 [facility] Last Admin: 01/27/19 11:16 Dose: 100 mg Documented by: Atorvastatin Calcium (Lipitor) 40 mg PO HS [facility] Last Admin: 01/27/19 21:06 Dose: 40 mg Documented by: Cilostazol (Pletal) 100 mg PO DAILY [facility] Last Admin: 01/27/19 08:11 Dose: 100 mg Documented by: Doxycycline Monohydrate (Vibramycin) 100 mg PO BID [facility] Last Admin: 01/27/19 21:09 Dose: 100 mg Documented by: Duloxetine HCl (Cymbalta) 60 mg PO [facility] Last Admin: 01/27/19 21:06 Dose: 60 mg Documented by: Ergocalciferol (Vitamin D2) 50,000 unit PO COHEN [facility] Last Admin: 01/27/19 11:16 Dose: Not Given Documented by: Glipizide (Glucotrol) 2.5 mg PO AC-BID [facility] Last Admin: 01/27/19 17:34 Dose: 2.5 mg Documented by: Sodium Chloride (Saline 0.9%) 1,000 mls @ 50 mls/hr IV .Q20H [facility] Last Admin: 01/27/19 03:46 Dose: Not Given Documented by: Insulin Aspart (Novolog) 0 unit SQ ACHS [facility]; Protocol Last Admin: 01/27/19 21:04 Dose: Not Given Documented by: Latanoprost (Xalatan 0.005%) 1 drops BOTH EYES HS [facility] Last Admin: 01/27/19 21:09 Dose: 1 drops Documented by: Levothyroxine Sodium (Synthroid) 88 mcg PO 0630 [facility] Last Admin: 01/27/19 05:18 Dose: 88 mcg Documented by: Lidocaine HCl (.Xylocaine 1% Inj (10mg/Ml) For Iv Start) 0.1 ml INTRADERMA PER PROTOCOL PRN PRN Reason: IV Start Last Admin: 01/18/19 06:57 Dose: 0.1 ml Documented by: Metformin HCl (Glucophage) 1,000 mg PO BID-W/MEALS [facility] Last Admin: 01/27/19 17:35 Dose: 1,000 mg Documented by: Metoclopramide HCl (Reglan) 10 mg IVP Q6H PRN PRN Reason: Nausea And Vomiting Last Admin: 01/26/19 07:45 Dose: 10 mg Documented by: Metoprolol Tartrate (Lopressor) 50 mg PO BID [facility] Last Admin: 01/27/19 21:06 Dose: 50 mg Documented by: Naloxone HCl (Narcan) 0.2 mg IV Q2M PRN PRN Reason: Opioid Reversal Ondansetron HCl (Zofran) 4 mg IVP Q8HR PRN PRN Reason: Nausea And Vomiting Last Admin: 01/26/19 02:19 Dose: 4 mg Documented by: Oxycodone HCl (Oxycontin 20mg E.R.) 20 mg PO BID PRN PRN Reason: Moderate Pain Control Last Admin: 01/27/19 21:06 Dose: 20 mg Documented by: Potassium Chloride (K-Dur 20) 20 meq PO DAILY [facility] Last Admin: 01/27/19 08:11 Dose: 20 meq Documented by: Prednisone () 5 mg PO 1200 [facility] Last Admin: 01/27/19 11:16 Dose: 5 mg Documented by: On examination: VITAL SIGNS: 98.6, 77, 18, 103 W. 56, 98% room air GENERAL APPEARANCE: Laying in bed, comfortable HEENT: Normal external appearance of nose and ear. Oral cavity normal EYES: Pupils equal. Conjunctiva pale NECK: JVD not raised. Mass not palpable. RESPIRATORY: Respiratory effort normal. Lungs clear to auscultation. CARDIOVASCULAR: First and second sounds normal. No edema. ABDOMEN: Soft. Liver and spleen not palpable. Minimal tenderness. No mass palpable. MASTER drain with bloody drainage. Abdominal dressing in place. PSYCHIATRY: Alert and oriented x3. Mood and affect anxious. Investigations: White count 15 hemoglobin 8.8 platelets 554 Previous testing: C. diff negative Computed tomography scan abdomen-postop ileus resolving anterior abdominal wall subcutaneous collection Previous labs White count 28.4 hemoglobin 6.9 Assessment: -Acute recurrent blood loss anemia from bleeding at the operative site, significantly, especially through the MASTER drain. Status post 2 unit of blood. -Reversal of eliquis with K Centra -Status post Incisional hernia repair -Paroxysmal atrial fibrillation on eliquis, currently held as -Coronary artery disease and history of CABG -Essential hypertension -Hyperlipidemia -Diabetes mellitus type 2 -Hypothyroidism -Primary osteoarthritis -Peripheral arterial disease -Anxiety depression otherwise specified Plan: Keep a close eye on patient's hemoglobin. Of course and evaluation has been held. Care was discussed with the patient. Follow.
[2019-01-28] MEDS: HYDROcodone/APAP 5-325MG 1 EACH TAB PO PRN ×4 (00:01→20:44)
[2019-01-28] MEDS: LEVOTHYROXINE 88 MCG TAB PO SCH (06:17)
[2019-01-28 07:08] LABS: Glucose,Whole Blood 106 mg/dL (75-99)
--- NOTE | 2019-01-28 07:43 | PN ---
PROGRESS NOTE DATE OF SERVICE: 01/27/2019 REASON FOR FOLLOWUP: Abdominal wall hematoma and leukocytosis. INTERVAL HISTORY: The patient is currently afebrile. Patient has been breathing comfortably. Denies having any worsening abdominal pain. No nausea, no vomiting or any diarrhea. PHYSICAL EXAMINATION: Her blood pressure is 112/69 with a pulse of 69, temperature 98.4, she is 97% on room air. General description is an elderly female, lying in bed in no distress. RESPIRATORY SYSTEM: Unlabored breathing, clear to auscultation anteriorly. HEART: S1, S2. Regular rate and rhythm. ABDOMEN: Soft, no tenderness. LABS: Hemoglobin 8.8, white count of 15,000. DIAGNOSTIC IMPRESSION AND PLAN: Patient with incisional abdominal hernia repair followed by bleeding and this patient did have underlying infected hematoma with elevated white count more likely reactive. Antibiotic adjusted to oral doxy for prophylaxis and monitor clinical course closely. MMODL / IJN: [id number] /
[2019-01-28] MEDS: glipiZIDE 5 MG TAB PO SCH ×2 (07:48→17:54)
[2019-01-28] MEDS: DOXYCYCLINE 100 MG CAP PO SCH (07:48)
[2019-01-28] MEDS: CILOSTAZOL 100 MG TAB PO SCH (07:50)
[2019-01-28] MEDS: POTASSIUM CHLORIDE ER 20 MEQ TAB.ER PO SCH (07:50)
[2019-01-28] MEDS: metFORMIN 500 MG TAB PO SCH ×2 (07:50→17:54)
[2019-01-28] MEDS: INSULIN ASPART (NovoLOG) 100 UNIT/ML VIAL SQ SCH ×4 (07:50→20:43)
[2019-01-28] MEDS: METOPROLOL TARTRATE 50 MG TAB PO SCH ×2 (07:50→20:44)
[2019-01-28 10:05] LABS: Anisocytosis Slight; HCT 27.5 % (34.0-46.0); HGB 8.8 gm/dL (11.4-16.0); Hypochromasia Marked; MCH 26.1 pg (25.0-35.0); MCHC 32.1 g/dL (31.0-37.0); MCV 81.4 fL (80.0-100.0); Mean Platelet Volume 5.9; Platelet Count 570 k/uL (150-450); RBC 3.38 m/uL (3.80-5.40); WBC 16.6 k/uL (3.8-10.6)
[2019-01-28 10:53] LABS: Band Neutrophils % 2 %; Eosinophils # (M) 1.16 k/uL (0-0.7); Lymphocytes # (M) 1.83 k/uL (1.0-4.8); Metamyelocytes % 3 %; Monocytes # (M) 0.83 k/uL (0-1.0); Myelocytes # (M) 0.17 k/uL (0); Myelocytes % 1 %; Neutrophils % (M) 73 %; Nucleated Red Blood Cells 0 /100 WBC (0-0); Total Cells Counted 200
[2019-01-28 10:54] LABS: Poikilocytosis (M) Present; Polychromasia Present
[2019-01-28 11:29] LABS: Glucose,Whole Blood 121 mg/dL (75-99)
[2019-01-28] MEDS: AMIODARONE 100 MG TAB PO SCH (12:09)
[2019-01-28] MEDS: predniSONE 5 MG TAB PO SCH (12:09)
[2019-01-28] MEDS ORDERED: VANCOMYCIN IV PER PHARMACY 1 EACH MISC MISCELLANE PRN (12:32)
[2019-01-28] MEDS ORDERED: VANCOMYCIN 1,500 MG in SODIUM CHLORIDE 0.9% 250 ML IVPB ONE (13:00)
[2019-01-28 13:19] LABS: African American GFR (CKD) >90 (>60 ml/min/1.73 sqM)
--- NOTE | 2019-01-28 13:23 | P.PN ---
Subjective Progress Note Date: 01/28/19 CHIEF COMPLAINT: Incisional hernia HISTORY OF PRESENT ILLNESS: Patient is s/p open incisional hernia repair performed on 10/18/18. Patient examined at the bedside this morning. She denies abdominal pain. Tolerating diet. Denies nausea or vomiting. Passing flatus and having BMs. Patient was unable to tolerate Bactrim. Infectious disease was consulted. Patient switched to Doxy. WBC today is increased to 16.6. PHYSICAL EXAM: VITAL SIGNS: Reviewed. GENERAL: Well-developed in no acute distress. Pale. HEENT: No sclera icterus. Extraocular movements grossly intact. Moist buccal mucosa. Head is atraumatic, normocephalic. ABDOMEN: Obese. Soft. Nondistended. Nontender. Dressing to midline with shadowing present. MASTER drain with sanguinous drainage. NEUROLOGIC: Alert and oriented. Cranial nerves II through XII grossly intact. ASSESSMENT: 1. Status post open repair of incisional hernia 2. Acute blood loss anemia secondary to abdominal wall hematoma PLAN: -Continue to hold Eliquis -SCDs for DVT prophylaxis -Continue diet as tolerated -Monitor hemoglobin -Monitor drainage from MASTER drain -Case discussed with Dr. Lancaster who will modify antibiotics -Discharge held today due to increasing WBC. Repeat in AM. -Possible discharge within the next 24-48 hours Nurse practitioner note has been reviewed by physician. Signing provider agrees with the documented findings, assessment, and plan of care. Objective - Vital Signs Vital signs: Vital Signs Temp 98.6 F 01/28/19 07:00 Pulse 80 01/28/19 07:00 Resp 16 01/28/19 07:00 BP 133/64 01/28/19 07:00 Pulse Ox 99 01/28/19 07:00 Intake & Output 01/27/19 01/28/19 01/28/19 18:59 06:59 18:59 Intake Total 1354 440 Output Total 115 40 105 Balance 1239 -40 335 Intake: Oral 1354 440 Output: Drainage 115 40 105 Abdomen 115 40 105 Other: Voiding Method Toilet # Voids 2 - Labs CBC & Chem 7: 01/28/19 09:24 01/28/19 12:46 Labs: Abnormal Lab Results - Last 24 Hours (Table) 01/27/19 01/27/19 01/28/19 Range/Units 17:00 20:55 06:42 WBC (3.8-10.6) k/uL RBC (3.80-5.40) m/uL Hgb (11.4-16.0) gm/dL Hct (34.0-46.0) % RDW (11.5-15.5) % Plt Count (150-450) k/uL Neutrophils # (Manual) (1.3-7.7) k/uL Eosinophils # (Manual) (0-0.7) k/uL Metamyelocytes # (Man) (0) k/uL Myelocytes # (Manual) (0) k/uL POC Glucose (mg/dL) 142 H 114 H 106 H (75-99) mg/dL 01/28/19 01/28/19 Range/Units 09:24 11:18 WBC 16.6 H (3.8-10.6) k/uL RBC 3.38 L (3.80-5.40) m/uL Hgb 8.8 L (11.4-16.0) gm/dL Hct 27.5 L (34.0-46.0) % RDW 17.0 H (11.5-15.5) % Plt Count 570 H (150-450) k/uL Neutrophils # (Manual) 12.40 H (1.3-7.7) k/uL Eosinophils # (Manual) 1.16 H (0-0.7) k/uL Metamyelocytes # (Man) 0.50 H (0) k/uL Myelocytes # (Manual) 0.17 H (0) k/uL POC Glucose (mg/dL) 121 H (75-99) mg/dL
[2019-01-28 17:56] LABS: Hemoglobin A1C 6.1 % (4.0-6.0)
[2019-01-28 20:19] LABS: Glucose,Whole Blood 147 mg/dL (75-99)
[2019-01-28] MEDS: ATORVASTATIN 40 MG TAB PO SCH (20:43)
[2019-01-28] MEDS: DULoxetine HCL 60 MG CAPSULE.DR PO SCH (20:43)
--- NOTE | 2019-01-28 22:08 | P.PN ---
Progress Note - Text Progress Note Date: 01/28/19 Interval history: Patient is a 73-year-old female with a known history of paroxysmal atrial fibr illation on anticoagulation with Eliquis, coronary artery disease status post CABG and history of cardiac catheterization, diabetes type 2 via-jabmomt-qvbjanxmj, hypertension, hyperlipidemia, memory impairment and hypothyroidism as well as osteoarthritis and other multiple medical problems was admitted to the hospital for elective incisional hernia repair. Patient tolerated the procedure well. Patient subsequently was having increasing bloody drainage from the MASTER drain. Had been on eliquis. This was discontinued. Patient is given KCentra. on January 22. Today-still having some bloody drainage out of the MASTER drain. No motor is decreased. No bone pain. Tolerating a diet. Has been out of bed. Review of systems: Was done for constitutional, cardiovascular, GI, pulmonary. relevant finding as above Active Medications Acetaminophen (Tylenol Tab) 650 mg PO Q4HR PRN PRN Reason: Fever and/ or Mild Pain Last Admin: 01/22/19 04:36 Dose: 650 mg Documented by: Hydrocodone Bitart/Acetaminophen ([place] 5-325) 1 each PO Q6HR PRN PRN Reason: Pain Last Admin: 01/28/19 20:44 Dose: 1 each Documented by: Al Hydroxide/Mg Hydroxide (Maalox) 30 ml PO Q4HR PRN PRN Reason: GI Upset Last Admin: 01/22/19 07:07 Dose: 30 ml Documented by: Amiodarone HCl (Cordarone) 100 mg PO 1200 [facility] Last Admin: 01/28/19 12:09 Dose: 100 mg Documented by: Atorvastatin Calcium (Lipitor) 40 mg PO HS [facility] Last Admin: 01/28/19 20:43 Dose: 40 mg Documented by: Cilostazol (Pletal) 100 mg PO DAILY [facility] Last Admin: 01/28/19 07:50 Dose: 100 mg Documented by: Duloxetine HCl (Cymbalta) 60 mg PO HS [facility] Last Admin: 01/28/19 20:43 Dose: 60 mg Documented by: Ergocalciferol (Vitamin D2) 50,000 unit PO COH[place] [facility] Last Admin: 01/27/19 11:16 Dose: Not Given Documented by: Glipizide (Glucotrol) 2.5 mg PO AC-BID [facility] Last Admin: 01/28/19 17:54 Dose: 2.5 mg Documented by: Sodium Chloride (Saline 0.9%) 1,000 mls @ 50 mls/hr IV .Q20H [facility] Last Admin: 01/27/19 23:42 Dose: Not Given Documented by: Vancomycin HCl 1,500 mg/ (Sodium Chloride) 250 mls @ 125 mls/hr IVPB Q12H [facility] Insulin Aspart (Novolog) 0 unit SQ ACHS [facility]; Protocol Last Admin: 01/28/19 20:43 Dose: 1 unit Documented by: Latanoprost (Xalatan 0.005%) 1 drops BOTH EYES HS [facility] Last Admin: 01/27/19 21:09 Dose: 1 drops Documented by: Levothyroxine Sodium (Synthroid) 88 mcg PO 0630 [facility] Last Admin: 01/28/19 06:17 Dose: 88 mcg Documented by: Lidocaine HCl (.Xylocaine 1% Inj (10mg/Ml) For Iv Start) 0.1 ml INTRADERMA PER PROTOCOL PRN PRN Reason: IV Start Last Admin: 01/18/19 06:57 Dose: 0.1 ml Documented by: Metformin HCl (Glucophage) 1,000 mg PO BID-W/MEALS [facility] Last Admin: 01/28/19 17:54 Dose: 1,000 mg Documented by: Metoclopramide HCl (Reglan) 10 mg IVP Q6H PRN PRN Reason: Nausea And Vomiting Last Admin: 01/26/19 07:45 Dose: 10 mg Documented by: Metoprolol Tartrate (Lopressor) 50 mg PO BID [facility] Last Admin: 01/28/19 20:44 Dose: 50 mg Documented by: Miscellaneous Information (Pharmacy To Dose Iv Vancomycin) 1 each MISCE[facility]ANE DIRECTED PRN PRN Reason: Per Protocol Naloxone HCl (Narcan) 0.2 mg IV Q2M PRN PRN Reason: Opioid Reversal Ondansetron HCl (Zofran) 4 mg IVP Q8HR PRN PRN Reason: Nausea And Vomiting Last Admin: 01/26/19 02:19 Dose: 4 mg Documented by: Oxycodone HCl (Oxycontin 20mg E.R.) 20 mg PO BID PRN PRN Reason: Moderate Pain Control Last Admin: 01/27/19 21:06 Dose: 20 mg Documented by: Potassium Chloride (K-Dur 20) 20 meq PO DAILY [facility] Last Admin: 01/28/19 07:50 Dose: 20 meq Documented by: Prednisone () 5 mg PO 1200 [facility] Last Admin: 01/28/19 12:09 Dose: 5 mg Documented by: On examination: VITAL SIGNS: 98.6, 80, 16, 133/64,99% room air GENERAL APPEARANCE: Laying in bed, comfortable HEENT: Normal external appearance of nose and ear. Oral cavity normal EYES: Pupils equal. Conjunctiva pale NECK: JVD not raised. Mass not palpable. RESPIRATORY: Respiratory effort normal. Lungs clear to auscultation. CARDIOVASCULAR: First and second sounds normal. No edema. ABDOMEN: Soft. Liver and spleen not palpable. Minimal tenderness. No mass palpable. MASTER drain with bloody drainage. Abdominal dressing in place. PSYCHIATRY: Alert and oriented x3. Mood and affect anxious. Investigations: white count 16.6 hemoglobin 8.8 Previous testing: C. diff negative Computed tomography scan abdomen-postop ileus resolving anterior abdominal wall subcutaneous collection Previous labs White count 28.4 hemoglobin 6.9 Assessment: -Acute recurrent blood loss anemia from bleeding at the operative site, significantly, especially through the MASTER drain. Status post 2 unit of blood. -Reversal of eliquis with K Centra -Status post Incisional hernia repair -Paroxysmal atrial fibrillation on eliquis, currently held as -Coronary artery disease and history of CABG -Essential hypertension -Hyperlipidemia -Diabetes mellitus type 2 -Hypothyroidism -Primary osteoarthritis -Peripheral arterial disease -Anxiety depression otherwise specified Plan: continue current medication treatment plan. Keepan eye on patient's hemoglobin. Care discussed with the patient.
--- NOTE | 2019-01-28 23:33 | PN ---
PROGRESS NOTE DATE OF SERVICE: 01/28/2019. REASON FOR FOLLOWUP: Leukocytosis. INTERVAL HISTORY: The patient is currently afebrile. The patient is breathing comfortably. Denies having any chest pain, shortness of breath or cough. No nausea, no vomiting. No worsening abdominal pain. She still has output in her MASTER drain which is mostly blood- stained. PHYSICAL EXAMINATION: Blood pressure 112/74 with a pulse of 80, temperature of 98. She is 98% on room air. General description is an elderly female lying in bed in no distress. RESPIRATORY SYSTEM: Unlabored breathing. Clear to auscultation anteriorly. HEART: S1, S2. Regular rate and rhythm. ABDOMEN: Soft. No significant tenderness. MASTER drain with mostly blood-stained secretion. EXTREMITIES: No edema of the feet. LABS: Hemoglobin 8.8, white count 16.6. DIAGNOSTIC IMPRESSION AND PLAN: Patient with leukocytosis in this patient who is status post incisional hernia repair with subsequent bleeding with a question of possible reaction to underlying hematoma. Secondary infection less likely but not entirely excluded. We will go ahead and obtain blood cultures, discontinue the doxycycline, add vancomycin and repeat CBC tomorrow. MMODL / IJN: [id number] /
[2019-01-29] MEDS: SODIUM CHLORIDE 0.9% 1,000 ML IV SCH ×2 (00:12→17:57)
[2019-01-29] MEDS: LATANOPROST 0.005% OPHTH DROPS 2.5 ML BTL BOTH EYES SCH ×2 (00:12→20:54)
[2019-01-29] MEDS: VANCOMYCIN 1,500 MG in SODIUM CHLORIDE 0.9% 250 ML IVPB SCH ×2 (00:14→13:55)
[2019-01-29] MEDS: oxyCODONE ER 20 MG TAB.ER.12H PO PRN ×2 (00:14→23:05)
[2019-01-29] MEDS: HYDROcodone/APAP 5-325MG 1 EACH TAB PO PRN ×3 (01:44→20:55)
[2019-01-29 06:38] LABS: African American GFR (CKD) >90 (>60 ml/min/1.73 sqM)
[2019-01-29 06:54] LABS: Glucose,Whole Blood 78 mg/dL (75-99)
[2019-01-29] MEDS: metFORMIN 500 MG TAB PO SCH (07:42)
[2019-01-29] MEDS: METOPROLOL TARTRATE 50 MG TAB PO SCH ×2 (07:42→20:55)
[2019-01-29] MEDS: CILOSTAZOL 100 MG TAB PO SCH (07:42)
[2019-01-29] MEDS: glipiZIDE 5 MG TAB PO SCH ×2 (07:43→17:56)
[2019-01-29] MEDS: POTASSIUM CHLORIDE ER 20 MEQ TAB.ER PO SCH (07:44)
[2019-01-29] MEDS: LEVOTHYROXINE 88 MCG TAB PO SCH (07:44)
[2019-01-29] MEDS: INSULIN ASPART (NovoLOG) 100 UNIT/ML VIAL SQ SCH ×4 (07:44→20:55)
[2019-01-29 10:42] LABS: Anisocytosis Slight; Basophils # (A) 0.1 k/uL (0-0.2); Basophils % (A) 1 %; Eosinophils # (A) 0.9 k/uL (0-0.7); Eosinophils % (A) 5 %; HCT 27.6 % (34.0-46.0); HGB 8.9 gm/dL (11.4-16.0); Hypochromasia Marked; Lymphocytes # (A) 1.7 k/uL (1.0-4.8); Lymphocytes % (A) 10 %; MCH 26.9 pg (25.0-35.0); MCHC 32.2 g/dL (31.0-37.0); MCV 83.6 fL (80.0-100.0); Mean Platelet Volume 6.8; Monocytes # (A) 0.8 k/uL (0-1.0); Monocytes % (A) 4 %; Neutrophils # (A) 14.6 k/uL (1.3-7.7); Neutrophils % (A) 80 %; Platelet Count 568 k/uL (150-450); RBC 3.31 m/uL (3.80-5.40); RDW 16.9 % (11.5-15.5); WBC 18.2 k/uL (3.8-10.6)
[2019-01-29 11:40] LABS: Glucose,Whole Blood 97 mg/dL (75-99)
[2019-01-29] MEDS: ONDANSETRON 4 MG/2 ML VIAL IVP PRN (12:37)
--- NOTE | 2019-01-29 13:09 | P.PN ---
Subjective Progress Note Date: 01/29/19 CHIEF COMPLAINT: Incisional hernia HISTORY OF PRESENT ILLNESS: Patient is s/p open incisional hernia repair performed on 10/18/18. Patient examined at the bedside this morning. She denies abdominal pain. Tolerating diet. Denies nausea or vomiting. Passing flatus and having BMs. WBC increased to 18.2. Hemoglobin 8.9 PHYSICAL EXAM: VITAL SIGNS: Reviewed. GENERAL: Well-developed in no acute distress. Pale. HEENT: No sclera icterus. Extraocular movements grossly intact. Moist buccal mucosa. Head is atraumatic, normocephalic. ABDOMEN: Obese. Soft. Nondistended. Nontender. Dressing to midline with shadowing present. MASTER drain with sanguinous drainage. NEUROLOGIC: Alert and oriented. Cranial nerves II through XII grossly intact. ASSESSMENT: 1. Status post open repair of incisional hernia 2. Acute blood loss anemia secondary to abdominal wall hematoma PLAN: -Continue to hold Eliquis -SCDs for DVT prophylaxis -Continue diet as tolerated -Monitor hemoglobin -Monitor drainage from MASTER drain -No discharge due to increasing WBC. will repeat CBC tomorrow and re-evaluate patient for discharge Nurse practitioner note has been reviewed by physician. Signing provider agrees with the documented findings, assessment, and plan of care. Objective - Vital Signs Vital signs: Vital Signs Temp 98.4 F 01/29/19 07:00 Pulse 78 01/29/19 07:00 Resp 17 01/29/19 07:00 BP 120/68 01/29/19 07:00 Pulse Ox 96 01/29/19 07:00 Intake & Output 01/28/19 01/29/19 01/29/19 18:59 06:59 18:59 Intake Total 680 118 Output Total 165 115 40 Balance 515 3 -40 Intake: Oral 680 118 Output: Drainage 165 115 40 Abdomen 165 115 40 Other: Voiding Method Toilet # Voids 1 1 # Bowel Movements 1 - Labs CBC & Chem 7: 01/29/19 06:03 01/29/19 06:07 Labs: Abnormal Lab Results - Last 24 Hours (Table) 01/28/19 01/28/19 01/28/19 Range/Units 09:24 12:46 20:08 WBC (3.8-10.6) k/uL RBC (3.80-5.40) m/uL Hgb (11.4-16.0) gm/dL Hct (34.0-46.0) % RDW (11.5-15.5) % Plt Count (150-450) k/uL Neutrophils # (1.3-7.7) k/uL Eosinophils # (0-0.7) k/uL POC Glucose (mg/dL) 147 H (75-99) mg/dL Hemoglobin A1c 6.1 H (4.0-6.0) % C-Reactive Protein 32.0 H (<10.0) mg/L 01/29/19 Range/Units 06:03 WBC 18.2 H (3.8-10.6) k/uL RBC 3.31 L (3.80-5.40) m/uL Hgb 8.9 L (11.4-16.0) gm/dL Hct 27.6 L (34.0-46.0) % RDW 16.9 H (11.5-15.5) % Plt Count 568 H (150-450) k/uL Neutrophils # 14.6 H (1.3-7.7) k/uL Eosinophils # 0.9 H (0-0.7) k/uL POC Glucose (mg/dL) (75-99) mg/dL Hemoglobin A1c (4.0-6.0) % C-Reactive Protein (<10.0) mg/L
[2019-01-29] MEDS: AMIODARONE 100 MG TAB PO SCH (13:56)
[2019-01-29] MEDS: IOPAMIDOL CONTRAST (ORAL USE) VIAL PO PRN ×2 (13:56→15:02)
[2019-01-29] MEDS: predniSONE 5 MG TAB PO SCH (13:56)
[2019-01-29 15:08] LABS: African American GFR (CKD) >90 (>60 ml/min/1.73 sqM); Anion Gap 9 mmol/L; Blood Urea Nitrogen 6 mg/dL (7-17); Calcium 9.1 mg/dL (8.4-10.2); Carbon Dioxide 21 mmol/L (22-30); Chloride 107 mmol/L (98-107); Glucose 87 mg/dL (74-99); Potassium 4.3 mmol/L (3.5-5.1); Sodium 137 mmol/L (137-145)
--- NOTE | 2019-01-29 16:14 | CT ---
EXAMINATION TYPE: CT abdomen pelvis w con DATE OF EXAM: 01/29/2019 COMPARISON: 01/24/2019 HISTORY: drainage from incision post hernia repair CT DLP: 1773.8 mGycm CONTRAST: CT scan of the abdomen and pelvis is performed with Oral Contrast and with IV Contrast, patient injec radha with 100 mL of Isovue 300. FINDINGS: LUNG BASES-: No visible nodule. No infiltrate. LIVER/GB: Cholecystectomy clips noted. No space occupying hepatic lesion. Biliary tree is of cecile l caliber. Granulomas liver. PANCREAS: No inflammation. No distinct mass. SPLEEN: No splenic enlargement. No lesion seen. Clinic granulomas noted. ADRENALS: No nodule. No thickening. KIDNEYS/BLADDER: No hydronephrosis. No nephrolithiasis. No distinct renal mass. Urinary bladder g rossly unremarkable. BOWEL: Normal appendix. Normal bowel caliber. No inflammation. GENITAL ORGANS: No gross abnormality. LYMPH NODES: No greater than 1cm abdominal or pelvic lymph nodes are appreciated. AORTA: No significant abnormality. OSSEOUS STRUCTURES: No significant abnormality is seen. OTHER: Low anterior abdominal wall drainage catheter remains in place with the surrounding attenuatio n unchanged from prior study felt to reflect a residual seroma or postoperative change. No evidence f or drainable abscess. Midline skin andrei noted previously noted subcutaneous air has resolved. Post operative anterior abdominal wall hernia repair. IMPRESSION: 1. Low anterior abdominal wall drainage catheter remains in place with the surrounding attenuation u nchanged from prior study felt to reflect a residual seroma or postoperative change. No evidence for drainable abscess. Midline skin andrei noted previously noted subcutaneous air has resolved.
[2019-01-29 16:39] LABS: Glucose,Whole Blood 96 mg/dL (75-99)
[2019-01-29 20:19] LABS: Glucose,Whole Blood 189 mg/dL (75-99)
[2019-01-29] MEDS: DULoxetine HCL 60 MG CAPSULE.DR PO SCH (20:55)
[2019-01-29] MEDS: ATORVASTATIN 40 MG TAB PO SCH (20:55)
[2019-01-29] MEDS ORDERED: FLUCONAZOLE IN NACL,ISO-OSM 200 MG in SALINE 1 50ML.BAG IVPB ONE (22:30)
--- NOTE | 2019-01-29 22:40 | P.PN ---
Progress Note - Text Progress Note Date: 01/29/19 Interval history: Patient is a 73-year-old female with a known history of paroxysmal atrial fibr illation on anticoagulation with Eliquis, coronary artery disease status post CABG and history of cardiac catheterization, diabetes type 2 pok-kgdzoqe-nbgeqmdsp, hypertension, hyperlipidemia, memory impairment and hypothyroidism as well as osteoarthritis and other multiple medical problems was admitted to the hospital for elective incisional hernia repair. Patient tolerated the procedure well. Patient subsequently was having increasing bloody drainage from the MASTER drain. Had been on eliquis. This was discontinued. Patient is given KCentra. on January 22. Today-tolerating tired. Still having bloody drainage through the MASTER drain. No abdominal pain. Having bowel movements.. Review of systems: Was done for constitutional, cardiovascular, GI, pulmonary. relevant finding as above Active Medications Acetaminophen (Tylenol Tab) 650 mg PO Q4HR PRN PRN Reason: Fever and/ or Mild Pain Last Admin: 01/22/19 04:36 Dose: 650 mg Documented by: Hydrocodone Bitart/Acetaminophen ([place] 5-325) 1 each PO Q6HR PRN PRN Reason: Pain Last Admin: 01/29/19 20:55 Dose: 1 each Documented by: Al Hydroxide/Mg Hydroxide (Maalox) 30 ml PO Q4HR PRN PRN Reason: GI Upset Last Admin: 01/22/19 07:07 Dose: 30 ml Documented by: Amiodarone HCl (Cordarone) 100 mg PO 1200 [facility] Last Admin: 01/29/19 13:56 Dose: 100 mg Documented by: Atorvastatin Calcium (Lipitor) 40 mg PO HS [facility] Last Admin: 01/29/19 20:55 Dose: 40 mg Documented by: Cilostazol (Pletal) 100 mg PO DAILY [facility] Last Admin: 01/29/19 07:42 Dose: 100 mg Documented by: Duloxetine HCl (Cymbalta) 60 mg PO HS [facility] Last Admin: 01/29/19 20:55 Dose: 60 mg Documented by: Ergocalciferol (Vitamin D2) 50,000 unit PO COH[place] [facility] Last Admin: 01/27/19 11:16 Dose: Not Given Documented by: Glipizide (Glucotrol) 2.5 mg PO AC-BID [facility] Last Admin: 01/29/19 17:56 Dose: 2.5 mg Documented by: Sodium Chloride (Saline 0.9%) 1,000 mls @ 50 mls/hr IV .Q20H [facility] Last Admin: 01/29/19 17:57 Dose: Not Given Documented by: Vancomycin HCl 1,500 mg/ (Sodium Chloride) 250 mls @ 125 mls/hr IVPB Q12H [facility] Last Admin: 01/29/19 13:55 Dose: 125 mls/hr Documented by: Fluconazole/Sodium Chloride (200 mg/ IV Solution) 100 mls @ 50 mls/hr IVPB ONCE ONE Stop: 01/30/19 00:29 Insulin Aspart (Novolog) 0 unit SQ ACHS [facility]; Protocol Last Admin: 01/29/19 20:55 Dose: 2 unit Documented by: Latanoprost (Xalatan 0.005%) 1 drops BOTH EYES HS [facility] Last Admin: 01/29/19 20:54 Dose: Not Given Documented by: Levothyroxine Sodium (Synthroid) 88 mcg PO 0630 [facility] Last Admin: 01/29/19 07:44 Dose: 88 mcg Documented by: Lidocaine HCl (.Xylocaine 1% Inj (10mg/Ml) For Iv Start) 0.1 ml INTRADERMA PER PROTOCOL PRN PRN Reason: IV Start Last Admin: 01/18/19 06:57 Dose: 0.1 ml Documented by: Metoclopramide HCl (Reglan) 10 mg IVP Q6H PRN PRN Reason: Nausea And Vomiting Last Admin: 01/26/19 07:45 Dose: 10 mg Documented by: Metoprolol Tartrate (Lopressor) 50 mg PO BID [facility] Last Admin: 01/29/19 20:55 Dose: 50 mg Documented by: Naloxone HCl (Narcan) 0.2 mg IV Q2M PRN PRN Reason: Opioid Reversal Ondansetron HCl (Zofran) 4 mg IVP Q8HR PRN PRN Reason: Nausea And Vomiting Last Admin: 01/29/19 12:37 Dose: 4 mg Documented by: Oxycodone HCl (Oxycontin 20mg E.R.) 20 mg PO BID PRN PRN Reason: Moderate Pain Control Last Admin: 01/29/19 00:14 Dose: 20 mg Documented by: Potassium Chloride (K-Dur 20) 20 meq PO DAILY [facility] Last Admin: 01/29/19 07:44 Dose: 20 meq Documented by: Prednisone () 5 mg PO 1200 [facility] Last Admin: 01/29/19 13:56 Dose: 5 mg Documented by: On examination: VITAL SIGNS: 98, 70, 16, 136 Bicitra 3, GENERAL APPEARANCE: Laying in bed, comfortable HEENT: Normal external appearance of nose and ear. Oral cavity normal EYES: Pupils equal. Conjunctiva pale NECK: JVD not raised. Mass not palpable. RESPIRATORY: Respiratory effort normal. Lungs clear to auscultation. CARDIOVASCULAR: First and second sounds normal. No edema. ABDOMEN: Soft. Liver and spleen not palpable. Minimal tenderness. No mass palpable. MASTER drain with bloody drainage. Abdominal dressing in place. PSYCHIATRY: Alert and oriented x3. Mood and affect anxious. Investigations: Hemoglobin 8.9 white count 18.2 Previous testing: C. diff negative Computed tomography scan abdomen-postop ileus resolving anterior abdominal wall subcutaneous collection Previous labs White count 28.4 hemoglobin 6.9 Assessment: -Acute recurrent blood loss anemia from bleeding at the operative site, significantly, especially through the MASTER drain. Status post 2 unit of blood. -Reversal of eliquis with K Centra -Status post Incisional hernia repair -Paroxysmal atrial fibrillation on eliquis, currently held as -Coronary artery disease and history of CABG -Essential hypertension -Hyperlipidemia -Diabetes mellitus type 2 -Hypothyroidism -Primary osteoarthritis -Peripheral arterial disease -Anxiety depression otherwise specified Plan: Keep a close and hemoglobin. Other medications to continue. Patient has been out of bed.
--- NOTE | 2019-01-29 22:57 | PN ---
PROGRESS NOTE DATE OF SERVICE: 01/29/2019. REASON FOR FOLLOWUP: Leukocytosis. INTERVAL HISTORY: The patient is currently afebrile. She was seen on rounds early this afternoon. She did have an episode of vomiting but denies any worsening abdominal pain. Still has blood-stained output in the drainage catheter. No chest pain, shortness of breath or cough and denies any diarrhea. PHYSICAL EXAMINATION: Blood pressure 118/60 with a pulse of 99, temperature 98.5. She is 95% on room air. General description is an elderly female, lying in bed in no distress. Respiratory system: Unlabored breathing, clear to auscultation anteriorly. Heart S1, S2. Regular rate and rhythm. Abdomen soft, no tenderness. Drainage catheter with . LABS: [place] [address] today. The stool for C difficile was negative. DIAGNOSTIC IMPRESSION AND PLAN: Patient with worsening patient admitted to the hospital with incisional hernia repair with complication of bleeding postop. Adequate blood transfusion now with worsening of the white count, did have an episode of vomiting. A CT abdominal pelvis was done to rule out any abscess collection. However, it did not show any worsening from a previous finding. We will give her a dose of Diflucan x1 today. Repeat tomorrow. We will follow up on the culture and continue supportive care. MMODL / IJN: [id number] /
[2019-01-30] MEDS: VANCOMYCIN 1,500 MG in SODIUM CHLORIDE 0.9% 250 ML IVPB SCH ×2 (01:28→12:34)
[2019-01-30] MEDS: HYDROcodone/APAP 5-325MG 1 EACH TAB PO PRN ×2 (03:32→21:23)
[2019-01-30 07:06] LABS: Glucose,Whole Blood 96 mg/dL (75-99)
[2019-01-30] MEDS: INSULIN ASPART (NovoLOG) 100 UNIT/ML VIAL SQ SCH ×4 (07:25→21:23)
[2019-01-30 07:32] LABS: Anisocytosis Slight; Basophils # (A) 0.2 k/uL (0-0.2); Basophils % (A) 1 %; Eosinophils # (A) 0.9 k/uL (0-0.7); Eosinophils % (A) 6 %; HCT 26.8 % (34.0-46.0); HGB 8.5 gm/dL (11.4-16.0); Hypochromasia Marked; Lymphocytes # (A) 1.9 k/uL (1.0-4.8); Lymphocytes % (A) 12 %; MCH 26.2 pg (25.0-35.0); MCHC 31.6 g/dL (31.0-37.0); Mean Platelet Volume 5.5; Monocytes # (A) 0.7 k/uL (0-1.0); Monocytes % (A) 4 %; Neutrophils # (A) 11.8 k/uL (1.3-7.7); Neutrophils % (A) 76 %; Platelet Count 550 k/uL (150-450); RBC 3.24 m/uL (3.80-5.40); RDW 16.8 % (11.5-15.5); WBC 15.6 k/uL (3.8-10.6)
[2019-01-30] MEDS: glipiZIDE 5 MG TAB PO SCH ×2 (07:37→17:39)
[2019-01-30] MEDS: METOPROLOL TARTRATE 50 MG TAB PO SCH ×2 (07:37→21:23)
[2019-01-30] MEDS: LEVOTHYROXINE 88 MCG TAB PO SCH (07:37)
[2019-01-30] MEDS: POTASSIUM CHLORIDE ER 20 MEQ TAB.ER PO SCH (07:37)
[2019-01-30] MEDS: CILOSTAZOL 100 MG TAB PO SCH (07:38)
[2019-01-30 07:44] LABS: African American GFR (CKD) >90 (>60 ml/min/1.73 sqM); Anion Gap 9 mmol/L; Blood Urea Nitrogen 6 mg/dL (7-17); Calcium 9.1 mg/dL (8.4-10.2); Carbon Dioxide 20 mmol/L (22-30); Chloride 109 mmol/L (98-107); Glucose 88 mg/dL (74-99); Potassium 4.2 mmol/L (3.5-5.1); Sodium 138 mmol/L (137-145)
[2019-01-30 09:14] LABS: C Reactive Protein 30.5 mg/L (<10.0)
[2019-01-30] MEDS: FLUCONAZOLE 100 MG TAB PO SCH (10:02)
[2019-01-30 11:37] LABS: Glucose,Whole Blood 111 mg/dL (75-99)
[2019-01-30] MEDS: SODIUM CHLORIDE 0.9% 1,000 ML IV SCH (11:40)
[2019-01-30] MEDS: AMIODARONE 100 MG TAB PO SCH (12:34)
[2019-01-30] MEDS: predniSONE 5 MG TAB PO SCH (12:34)
[2019-01-30 17:11] LABS: Glucose,Whole Blood 220 mg/dL (75-99)
--- NOTE | 2019-01-30 18:35 | P.PN ---
Progress Note - Text Progress Note Date: 01/30/19 The patient feels well. Her white count is decreased 15,000. She has no significant abdominal pain. She's having bowel movements. On exam her vital signs are stable. Her abdomen is soft. Patient still has serosanguineous drainage from her MASTER drain. There is no evidence of infection. Status post repair of incisional hernia with postoperative hemorrhage on day 4. Patient will continue receive IV antibiotic. Her white count be checked again in the a.m. If it is still declining we will consider discharge tomorrow.
[2019-01-30 20:13] LABS: Glucose,Whole Blood 186 mg/dL (75-99)
[2019-01-30] MEDS: LATANOPROST 0.005% OPHTH DROPS 2.5 ML BTL BOTH EYES SCH (21:23)
[2019-01-30] MEDS: DULoxetine HCL 60 MG CAPSULE.DR PO SCH (21:23)
[2019-01-30] MEDS: ATORVASTATIN 40 MG TAB PO SCH (21:23)
--- NOTE | 2019-01-30 22:18 | P.PN ---
Progress Note - Text Progress Note Date: 01/30/19 Interval history: Patient is a 73-year-old female with a known history of paroxysmal atrial fibr illation on anticoagulation with Eliquis, coronary artery disease status post CABG and history of cardiac catheterization, diabetes type 2 pxy-ovriuwq-uuqwppumy, hypertension, hyperlipidemia, memory impairment and hypothyroidism as well as osteoarthritis and other multiple medical problems was admitted to the hospital for elective incisional hernia repair. Patient tolerated the procedure well. Patient subsequently was having increasing bloody drainage from the MASTER drain. Had been on eliquis. This was discontinued. Patient is given KCentra. on January 22. Today-sitting up in bed. Eating okay. Still draining bloody of the MASTER drain. No abdominal pain. the bedside. Does feel a bit tired. Review of systems: Was done for constitutional, cardiovascular, GI, pulmonary. relevant finding as above Active Medications Acetaminophen (Tylenol Tab) 650 mg PO Q4HR PRN PRN Reason: Fever and/ or Mild Pain Last Admin: 01/22/19 04:36 Dose: 650 mg Documented by: Hydrocodone Bitart/Acetaminophen ([place] 5-325) 1 each PO Q6HR PRN PRN Reason: Pain Last Admin: 01/30/19 21:23 Dose: 1 each Documented by: Al Hydroxide/Mg Hydroxide (Maalox) 30 ml PO Q4HR PRN PRN Reason: GI Upset Last Admin: 01/22/19 07:07 Dose: 30 ml Documented by: Amiodarone HCl (Cordarone) 100 mg PO 1200 [facility] Last Admin: 01/30/19 12:34 Dose: 100 mg Documented by: Atorvastatin Calcium (Lipitor) 40 mg PO HS [facility] Last Admin: 01/30/19 21:23 Dose: 40 mg Documented by: Cilostazol (Pletal) 100 mg PO DAILY [facility] Last Admin: 01/30/19 07:38 Dose: 100 mg Documented by: Duloxetine HCl (Cymbalta) 60 mg PO HS [facility] Last Admin: 01/30/19 21:23 Dose: 60 mg Documented by: Ergocalciferol (Vitamin D2) 50,000 unit PO COHEN [facility] Last Admin: 01/27/19 11:16 Dose: Not Given Documented by: Fluconazole (Diflucan) 100 mg PO DAILY [facility] Last Admin: 01/30/19 10:02 Dose: 100 mg Documented by: Glipizide (Glucotrol) 2.5 mg PO AC-BID [facility] Last Admin: 01/30/19 17:39 Dose: 2.5 mg Documented by: Sodium Chloride (Saline 0.9%) 1,000 mls @ 50 mls/hr IV .Q20H [facility] Last Admin: 01/30/19 11:40 Dose: Not Given Documented by: Vancomycin HCl 1,500 mg/ (Sodium Chloride) 250 mls @ 125 mls/hr IVPB Q12H [facility] Last Admin: 01/30/19 12:34 Dose: 125 mls/hr Documented by: Insulin Aspart (Novolog) 0 unit SQ ACHS [facility]; Protocol Last Admin: 01/30/19 21:23 Dose: 2 unit Documented by: Latanoprost (Xalatan 0.005%) 1 drops BOTH EYES HS [facility] Last Admin: 01/30/19 21:23 Dose: Not Given Documented by: Levothyroxine Sodium (Synthroid) 88 mcg PO 0630 [facility] Last Admin: 01/30/19 07:37 Dose: 88 mcg Documented by: Lidocaine HCl (.Xylocaine 1% Inj (10mg/Ml) For Iv Start) 0.1 ml INTRADERMA PER PROTOCOL PRN PRN Reason: IV Start Last Admin: 01/18/19 06:57 Dose: 0.1 ml Documented by: Metoclopramide HCl (Reglan) 10 mg IVP Q6H PRN PRN Reason: Nausea And Vomiting Last Admin: 01/26/19 07:45 Dose: 10 mg Documented by: Metoprolol Tartrate (Lopressor) 50 mg PO BID [facility] Last Admin: 01/30/19 21:23 Dose: 50 mg Documented by: Naloxone HCl (Narcan) 0.2 mg IV Q2M PRN PRN Reason: Opioid Reversal Ondansetron HCl (Zofran) 4 mg IVP Q8HR PRN PRN Reason: Nausea And Vomiting Last Admin: 01/29/19 12:37 Dose: 4 mg Documented by: Oxycodone HCl (Oxycontin 20mg E.R.) 20 mg PO BID PRN PRN Reason: Moderate Pain Control Last Admin: 01/29/19 23:05 Dose: 20 mg Documented by: Potassium Chloride (K-Dur 20) 20 meq PO DAILY [facility] Last Admin: 01/30/19 07:37 Dose: 20 meq Documented by: Prednisone () 5 mg PO 1200 [facility] Last Admin: 01/30/19 12:34 Dose: 5 mg Documented by: On examination: VITAL SIGNS: 98.5, 75, 12, 107/57, 97% room air GENERAL APPEARANCE: Sitting arranged bed, HEENT: Normal external appearance of nose and ear. Oral cavity normal EYES: Pupils equal. Conjunctiva pale NECK: JVD not raised. Mass not palpable. RESPIRATORY: Respiratory effort normal. Lungs clear to auscultation. CARDIOVASCULAR: First and second sounds normal. No edema. ABDOMEN: Soft. Liver and spleen not palpable. Minimal tenderness. No mass palpable. MASTER drain with bloody drainage. Abdominal dressing in place. PSYCHIATRY: Alert and oriented x3. Mood and affect anxious. Investigations: White count 15.6, hemoglobin 8.5 creatinine 0 point 63 Previous testing: C. diff negative Computed tomography scan abdomen-postop ileus resolving anterior abdominal wall subcutaneous collection Previous labs White count 28.4 hemoglobin 6.9 Assessment: -Acute recurrent blood loss anemia from bleeding at the operative site, significantly, especially through the MASTER drain. Status post 2 unit of blood. -Reversal of eliquis with K Centra -Status post Incisional hernia repair -Paroxysmal atrial fibrillation on eliquis, currently held as -Coronary artery disease and history of CABG -Essential hypertension -Hyperlipidemia -Diabetes mellitus type 2 -Hypothyroidism -Primary osteoarthritis -Peripheral arterial disease -Anxiety depression otherwise specified Plan: Patient seems to have contributed to bleeding from the operative site. Does not seem to any evidence of overt infection. Patient is on vancomycin, Diflucan. Being followed by by ID.
[2019-01-30] MEDS: oxyCODONE ER 20 MG TAB.ER.12H PO PRN (22:36)
--- NOTE | 2019-01-30 23:35 | PN ---
PROGRESS NOTE DATE OF SERVICE: 01/30/2019 REASON FOR FOLLOWUP: Leukocytosis. INTERVAL HISTORY: The patient is currently afebrile. The patient has been breathing comfortably. Denies having any chest pain or cough. No nausea, no vomiting, no abdominal pain or diarrhea. PHYSICAL EXAMINATION: Blood pressure 107/67 with a pulse of 75, temperature of 98. General description is an elderly female lying in bed in no distress. RESPIRATORY SYSTEM: Unlabored breathing. Clear to auscultation anteriorly. HEART: S1, S2. Regular rate and rhythm. ABDOMEN: Soft. No tenderness. EXTREMITIES: No edema of the feet. LABS: White count is down to 15,000. DIAGNOSTIC IMPRESSION AND PLAN: Patient with leukocytosis in this patient admitted to hospital with incisional hernia repair with a and transfusion. So far culture has been negative. White count responded to the Diflucan with a possible concern for secondary halima infection. We will continue the patient on Diflucan 100 mg daily. Repeat CBC tomorrow. It is showing a downward trend. Discontinue the vancomycin and consider finishing course with a short course of oral Diflucan. MMODL / IJN: [id number] /
[2019-01-31] MEDS: VANCOMYCIN 1,500 MG in SODIUM CHLORIDE 0.9% 250 ML IVPB SCH ×2 (00:11→12:11)
[2019-01-31] MEDS: LEVOTHYROXINE 88 MCG TAB PO SCH (05:34)
[2019-01-31 06:55] LABS: Glucose,Whole Blood 97 mg/dL (75-99)
[2019-01-31] MEDS: INSULIN ASPART (NovoLOG) 100 UNIT/ML VIAL SQ SCH ×2 (07:18→12:07)
[2019-01-31] MEDS: POTASSIUM CHLORIDE ER 20 MEQ TAB.ER PO SCH (07:24)
[2019-01-31] MEDS: FLUCONAZOLE 100 MG TAB PO SCH (07:24)
[2019-01-31] MEDS: METOPROLOL TARTRATE 50 MG TAB PO SCH (07:24)
[2019-01-31] MEDS: glipiZIDE 5 MG TAB PO SCH (07:25)
[2019-01-31] MEDS: HYDROcodone/APAP 5-325MG 1 EACH TAB PO PRN ×2 (07:26→12:11)
[2019-01-31] MEDS: CILOSTAZOL 100 MG TAB PO SCH (07:26)
[2019-01-31] MEDS: SODIUM CHLORIDE 0.9% 1,000 ML IV SCH (07:27)
[2019-01-31 07:36] VITALS: BP 119/65; PULSE 67; RESP 16; TEMP 98.7
[2019-01-31 08:32] LABS: Anisocytosis Slight; Basophils # (A) 0.2 k/uL (0-0.2); Basophils % (A) 1 %; Eosinophils # (A) 0.8 k/uL (0-0.7); Eosinophils % (A) 6 %; HCT 29.6 % (34.0-46.0); Hypochromasia Marked; Lymphocytes % (A) 14 %; MCHC 30.3 g/dL (31.0-37.0); MCV 85.8 fL (80.0-100.0); Mean Platelet Volume 6.9; Monocytes # (A) 0.7 k/uL (0-1.0); Monocytes % (A) 5 %; Neutrophils # (A) 10.1 k/uL (1.3-7.7); Neutrophils % (A) 73 %; Platelet Count 601 k/uL (150-450); RBC 3.46 m/uL (3.80-5.40); RDW 17.3 % (11.5-15.5)
[2019-01-31 08:41] LABS: African American GFR (CKD) >90 (>60 ml/min/1.73 sqM)
[2019-01-31 11:57] LABS: Glucose,Whole Blood 118 mg/dL (75-99)
[2019-01-31] MEDS: AMIODARONE 100 MG TAB PO SCH (12:11)
[2019-01-31] MEDS: predniSONE 5 MG TAB PO SCH (12:11)
--- NOTE | 2019-01-31 16:28 | PN ---
PROGRESS NOTE DATE OF SERVICE: 01/31/2019. REASON FOR FOLLOWUP: Leukocytosis, possibly reactive versus abdominal source. INTERVAL HISTORY: The patient is currently afebrile. The patient has been feeling better, breathing comfortably. The patient denies having any further nausea; no vomiting; and the patient did have a formed bowel movement today. No abdominal pain. Output in the MASTER drainage has decreased. PHYSICAL EXAMINATION: Blood pressure is 119/65 with a pulse of 67, temperature 98.7. She is 98% on room air. General description is an elderly female lying in bed in no distress. RESPIRATORY SYSTEM: Unlabored breathing. Clear to auscultation anteriorly. HEART: S1, S2. Regular rate and rhythm. ABDOMEN: Soft. No tenderness. LABS: Hemoglobin is 9, white count 14,000. Blood culture has been negative. DIAGNOSTIC IMPRESSION AND PLAN: Patient with leukocytosis, possibly reactive, in this patient admitted to hospital with abdominal incisional hernia repair with a postoperative bleed. Patient has shown overall clinical improvement. She has been afebrile throughout her hospital stay. White count is showing a downward trend. A prescription for Bactrim has been sent by the surgeon. That should be enough with close outpatient followup. MMODL / IJN: [id number] /
--- NOTE | 2019-02-02 23:44 | P.PN ---
Progress Note - Text Progress Note Date: 01/31/19 Interval history: Patient is a 73-year-old female with a known history of paroxysmal atrial fibr illation on anticoagulation with Eliquis, coronary artery disease status post CABG and history of cardiac catheterization, diabetes type 2 [id number], hypertension, hyperlipidemia, memory impairment and hypothyroidism as well as osteoarthritis and other multiple medical problems was admitted to the hospital for elective incisional hernia repair. Patient tolerated the procedure well. Patient subsequently was having increasing bloody drainage from the MASTER drain. Had been on eliquis. This was discontinued. Patient is given KCentra. on January 22. Today-Sitting at the edge of the bed. Comfortable. Abdominal pain. Did tolerate her meals. Had a bowel movement.. To some blood in the area MASTER drain Review of systems: Was done for constitutional, cardiovascular, GI, pulmonary. relevant finding as above Current medications reviewed from recent records. On examination: VITAL SIGNS: GENERAL APPEARANCE: Sitting arranged bed, HEENT: Normal external appearance of nose and ear. Oral cavity normal EYES: Pupils equal. Conjunctiva pale NECK: JVD not raised. Mass not palpable. RESPIRATORY: Respiratory effort normal. Lungs clear to auscultation. CARDIOVASCULAR: First and second sounds normal. No edema. ABDOMEN: Soft. Liver and spleen not palpable. Minimal tenderness. No mass palpable. MASTER drain with bloody drainage. Abdominal dressing in place. PSYCHIATRY: Alert and oriented x3. Mood and affect anxious. Investigations: White count 15.6, hemoglobin 8.5 creatinine 0 point 63 Previous testing: C. diff negative Computed tomography scan abdomen-postop ileus resolving anterior abdominal wall subcutaneous collection Previous labs White count 28.4 hemoglobin 6.9 Assessment: -Acute recurrent blood loss anemia from bleeding at the operative site, significantly, especially through the MASTER drain. Status post 2 unit of blood. -Reversal of eliquis with K Centra -Status post Incisional hernia repair -Paroxysmal atrial fibrillation on eliquis, currently held as -Coronary artery disease and history of CABG -Essential hypertension -Hyperlipidemia -Diabetes mellitus type 2 -Hypothyroidism -Primary osteoarthritis -Peripheral arterial disease -Anxiety depression otherwise specified Plan: Continue current medication treatment plan. Infection workup has been negative. Discharge decision as per general surgery and ID. Care was discussed with the patient.
== END 2019-01-31 16:08 | disposition home or self-care (01) | DRG 908 ==
LOC: OR 06:18 → 4SSUR 09:20 → OR 01-21 17:35 → 4SSUR 01-21 17:35 → 4MS4W 01-27 15:21 → 4SSUR 01-27 15:49
PROVIDERS: ADMIT Surgery; ATTEND Surgery
PROC: 0WUF0JZ Supplement Abdominal Wall with Synthetic Substitute, Open Approach (ICD-10-PCS; principal; 2019-01-18 08:00)
PROC: 30233N1 Transfusion of Nonautologous Red Blood Cells into Peripheral Vein, Percutaneous Approach (ICD-10-PCS; 2019-01-22)
DX: L76.22 Postprocedural hemorrhage of skin and subcutaneous tissue following other procedure (principal); D62 Acute posthemorrhagic anemia; E11.52 Type 2 diabetes mellitus with diabetic peripheral angiopathy with gangrene; Y83.8 Other surgical procedures as the cause of abnormal reaction of the patient, or of later complication, without mention of misadventure at the time of the procedure; Y92.239 Unspecified place in hospital as the place of occurrence of the external cause; T45.515A Adverse effect of anticoagulants, initial encounter; E03.9 Hypothyroidism, unspecified; E78.5 Hyperlipidemia, unspecified; F41.0 Panic disorder [episodic paroxysmal anxiety]; F41.1 Generalized anxiety disorder; I10 Essential (primary) hypertension; I25.10 Atherosclerotic heart disease of native coronary artery without angina pectoris; I48.0 Paroxysmal atrial fibrillation; K43.2 Incisional hernia without obstruction or gangrene; Z79.01 Long term (current) use of anticoagulants; Z79.02 Long term (current) use of antithrombotics/antiplatelets; Z79.84 Long term (current) use of oral hypoglycemic drugs; Z79.890 Hormone replacement therapy; Z79.899 Other long term (current) drug therapy; Z80.49 Family history of malignant neoplasm of other genital organs; Z82.49 Family history of ischemic heart disease and other diseases of the circulatory system; Z87.891 Personal history of nicotine dependence; Z90.49 Acquired absence of other specified parts of digestive tract; Z93.3 Colostomy status; Z95.1 Presence of aortocoronary bypass graft; Z96.653 Presence of artificial knee joint, bilateral; G89.29 Other chronic pain; M54.9 Dorsalgia, unspecified; M19.012 Primary osteoarthritis, left shoulder; M19.011 Primary osteoarthritis, right shoulder; K52.9 Noninfective gastroenteritis and colitis, unspecified
CPT/HCPCS: 64488; 74176; 74177; 80048; 80053; 80202; 82565; 83036; 83605; 85025; 85027; 85610; 86140; 86850; 86900; 86901; 86920; 87040; 87324; 94760

== ENCOUNTER 2019-02-19 12:49 | Inpatient (IN) | payer MEDICARE, OTHER ==
[2019-02-19] MEDS ORDERED: ONDANSETRON 4 MG/2 ML VIAL IVP STA (15:45)
[2019-02-19] MEDS ORDERED: SODIUM CHLORIDE 0.9% 1,000 ML IV STA ×2 (15:45→18:08)
--- NOTE | 2019-02-19 16:11 | ED ---
General Adult HPI - General Chief complaint: Nausea/Vomiting/Diarrhea Stated complaint: Vomiting, Weakness Time Seen by Provider: 02/19/19 15:22 Source: patient Mode of arrival: ambulatory Limitations: no limitations - History of Present Illness Initial comments: Patient is 73-year-old female presenting to the emergency department with a chief complaint of nausea vomiting generalized weakness. Patient reports she had a hernia repair 5 weeks ago which became complicated and causes two-week inpatient hospital stay. Patient reports after discharge the patient had continuous nausea vomiting and is gradually developed generalized weakness over the last 2 weeks. Patient reports she was last seen by Dr. Abernathy last week and she informed them of her symptoms. She was set to see him today at 1800 however she felt weak and told his office that she would come to the ED instead. Patient also reports continuous serosanguineous fluid in her draining tube. Patient denies any night sweats fevers or chills. Patient denies shortness of breath cough, or any unilateral leg pain or swelling. - Related Data Home Medications Medication Instructions Recorded Confirmed DULoxetine HCL [Cymbalta] 60 mg PO HS 12/14/16 02/19/19 Ergocalciferol (Vitamin D2) 50,000 unit PO COHEN 12/14/16 02/19/19 [Vitamin D2] Atorvastatin [Lipitor] 40 mg PO HS 01/24/18 02/19/19 Amiodarone [Cordarone] 100 mg PO AC-LUNCH 03/02/18 02/19/19 Furosemide [Lasix] 40 mg PO BID 03/02/18 02/19/19 Latanoprost/Pf [Latanoprost 0.005% 1 drop BOTH EYES HS 03/02/18 02/19/19 Eye Drop] Cilostazol [Pletal] 100 mg PO DAILY 11/15/18 02/19/19 Levothyroxine Sodium [Tirosint] 88 mcg PO DAILY 11/15/18 02/19/19 Losartan Potassium 100 mg PO DAILY 11/15/18 02/19/19 Metoprolol Tartrate [Lopressor] 50 mg PO BID 11/15/18 02/19/19 Potassium Chloride ER [K-Dur 20] 20 meq PO DAILY 11/15/18 02/19/19 amLODIPine [Norvasc] 10 mg PO DAILY 11/15/18 02/19/19 metFORMIN HCL [Glucophage] 500 mg PO BID 11/15/18 02/19/19 oxyCODONE ER [OxyCONTIN] 20 mg PO BID 11/15/18 02/19/19 predniSONE 10 mg PO AC-LUNCH 11/15/18 02/19/19 Ondansetron [Zofran] 8 mg PO DAILY PRN 01/17/19 02/19/19 Loperamide [Imodium] 2 mg PO DAILY 02/19/19 02/19/19 Allergies Allergy/AdvReac Type Severity Reaction Status Date / Time No Known Allergies Allergy Verified 02/19/19 16:00 Review of Systems ROS Statement: Those systems with pertinent positive or pertinent negative responses have been documented in the HPI. ROS Other: All systems not noted in ROS Statement are negative. Past Medical History Past Medical History: Atrial Fibrillation, Coronary Artery Disease (CAD), Diabetes Mellitus, Hyperlipidemia, Hypertension, Memory Impairment, Musculoskeletal Disorder, Osteoarthritis (OA), Thyroid Disorder, Vascular Disorder Additional Past Medical History / Comment(s): Pt. states poor circulation in RLE due to an artificial bypass. Chronic back pain, bilateral shoulder problems due to Degenerative Joint Disease/arthritis. Chronic diarrhea. Chronic high WBC count. Patient states "Dr Montoya aware, waiting to hear if he will do surgery or not due to WBC level, also having a repeat EKG today, ordered by Dr Montoya." "Forgetful." Vertigo at times. History of Any Multi-Drug Resistant Organisms: ESBL Date of last positivie culture/infection: 03/04/18 MDRO Source:: BODY FLUID ASPIRATE Past Surgical History: Appendectomy, Bowel Resection, Breast Surgery, Cholecystectomy, Coronary Bypass/CABG, Heart Catheterization, Joint Replacement, Orthopedic Surgery Additional Past Surgical History / Comment(s): "Rt leg sx, artificial artery". Bilateral knee replacements. Rt rotator cuff, left breast surgery for benign tumor. Epidurals to lower back. Quad CABG 12-11-17, 12/20/17 colectomy/ileostomy- colostomy and reversal, picc line placement/removal. Past Anesthesia/Blood Transfusion Reactions: No Reported Reaction Past Psychological History: Anxiety, Depression Smoking Status: Former smoker Past Alcohol Use History: None Reported Past Drug Use History: None Reported - Past Family History Mother Family Medical History: Cancer Additional Family Medical History / Comment(s): Uterine cancer. Father Family Medical History: Congestive Heart Failure (CHF) General Exam Limitations: no limitations General appearance: alert, in no apparent distress Head exam: Present: atraumatic, normocephalic, normal inspection Eye exam: Present: normal appearance Pupils: Present: normal accommodation ENT exam: Present: normal exam, mucous membranes moist, normal external ear exam Neck exam: Present: normal inspection, full ROM Respiratory exam: Present: normal lung sounds bilaterally Cardiovascular Exam: Present: regular rate, normal rhythm, normal heart sounds GI/Abdominal exam: Present: soft, other (Surgical site is healing well. Drain tube site does not look infected. Serosanguineous fluid present in a draining tube.). Absent: tenderness Extremities exam: Present: normal inspection, full ROM Back exam: Present: normal inspection, full ROM Neurological exam: Present: alert, oriented X3 Psychiatric exam: Present: normal affect, normal mood Skin exam: Present: warm, intact, normal color Course Vital Signs 02/19/19 02/19/19 02/19/19 14:09 16:39 18:25 Temperature 98.3 F Pulse Rate 117 H 104 H 102 H Respiratory 18 18 18 Rate Blood Pressure 110/67 135/72 135/72 O2 Sat by Pulse 96 96 95 Oximetry EKG Findings - EKG Comments: EKG Findings:: Sinus tachycardia with first-degree AV block, flattening of the T-waves. Ventricular rate 104, OH interval 246, QRS duration 76, QT/QTC 346/464 Medical Decision Making - Medical Decision Making is 73-year-old female presenting to emergency Department with a chief complaint of nausea vomiting generalized weakness. Patient has developed generalized weakness for about 3 weeks with gradual increase in severity after she was discharged from a complicated hernial repair inpatient stay. She had an appointment scheduled see Dr. abernathy today but could not make it to his office due to the generalized weakness. Initial laboratory results indicate electively with 2.5, leukocytosis of over 20,000. Patient given fluids, antiemetics and antibiotics. Patient does fit the SIRS criteria for sepsis. Patient is also hypokalemic. Patient given IV and by mouth potassium. EKG does show flattening of T waves. CT of abdomen and pelvis is negative of accessible information at the surgical abdominal site compared to old exam which is suggestive of a possible seroma. Abscess cannot be excluded. Patient will be admitted for further medical management. Case discussed with Dr. Don. Admit [facility] physician is Dr. Dietz, Dr Christie consulted. - Lab Data Result diagrams: 02/19/19 17:12 02/19/19 17:12 Lab Results 02/19/19 02/19/19 02/19/19 Range/Units 17:12 17:12 17:12 WBC 20.6 H (3.8-10.6) k/uL RBC 3.91 (3.80-5.40) m/uL Hgb 9.9 L (11.4-16.0) gm/dL Hct 32.2 L (34.0-46.0) % MCV 82.2 (80.0-100.0) fL MCH 25.4 (25.0-35.0) pg MCHC 30.9 L (31.0-37.0) g/dL RDW 15.5 (11.5-15.5) % Plt Count 581 H (150-450) k/uL Neutrophils % 79 % Lymphocytes % 11 % Monocytes % 6 % Eosinophils % 1 % Basophils % 1 % Neutrophils # 16.4 H (1.3-7.7) k/uL Lymphocytes # 2.3 (1.0-4.8) k/uL Monocytes # 1.2 H (0-1.0) k/uL Eosinophils # 0.1 (0-0.7) k/uL Basophils # 0.2 (0-0.2) k/uL Hypochromasia Marked Sodium 134 L (137-145) mmol/L Potassium 2.5 L* (3.5-5.1) mmol/L Chloride 94 L (98-107) mmol/L Carbon Dioxide 28 (22-30) mmol/L Anion Gap 12 mmol/L BUN 13 (7-17) mg/dL Creatinine 0.74 (0.52-1.04) mg/dL Est GFR (CKD-EPI)AfAm >90 (>60 ml/min/1.73 sqM) Est GFR (CKD-EPI)NonAf 82 (>60 ml/min/1.73 sqM) Glucose 162 H (74-99) mg/dL Plasma Lactic Acid Frederick 3.5 H* (0.7-2.0) mmol/L Calcium 9.2 (8.4-10.2) mg/dL Magnesium (1.6-2.3) mg/dL Total Bilirubin 0.4 (0.2-1.3) mg/dL AST 17 (14-36) U/L ALT 23 (9-52) U/L Alkaline Phosphatase 141 H (38-126) U/L Total Protein 6.2 L (6.3-8.2) g/dL Albumin 3.6 (3.5-5.0) g/dL 02/19/19 Range/Units 17:12 WBC (3.8-10.6) k/uL RBC (3.80-5.40) m/uL Hgb (11.4-16.0) gm/dL Hct (34.0-46.0) % MCV (80.0-100.0) fL MCH (25.0-35.0) pg MCHC (31.0-37.0) g/dL RDW (11.5-15.5) % Plt Count (150-450) k/uL Neutrophils % % Lymphocytes % % Monocytes % % Eosinophils % % Basophils % % Neutrophils # (1.3-7.7) k/uL Lymphocytes # (1.0-4.8) k/uL Monocytes # (0-1.0) k/uL Eosinophils # (0-0.7) k/uL Basophils # (0-0.2) k/uL Hypochromasia Sodium (137-145) mmol/L Potassium (3.5-5.1) mmol/L Chloride (98-107) mmol/L Carbon Dioxide (22-30) mmol/L Anion Gap mmol/L BUN (7-17) mg/dL Creatinine (0.52-1.04) mg/dL Est GFR (CKD-EPI)AfAm (>60 ml/min/1.73 sqM) Est GFR (CKD-EPI)NonAf (>60 ml/min/1.73 sqM) Glucose (74-99) mg/dL Plasma Lactic Acid Frederick (0.7-2.0) mmol/L Calcium (8.4-10.2) mg/dL Magnesium 1.4 L (1.6-2.3) mg/dL Total Bilirubin (0.2-1.3) mg/dL AST (14-36) U/L ALT (9-52) U/L Alkaline Phosphatase (38-126) U/L Total Protein (6.3-8.2) g/dL Albumin (3.5-5.0) g/dL Disposition Clinical Impression: Nausea & vomiting, Abdominal pain Disposition: ADMITTED IP TO THIS HOSP Condition: Fair Instructions (If sedation given, give patient instructions): Abdominal Pain (ED) Additional Instructions: Patient will be admitted Is patient prescribed a controlled substance at d/c from ED?: No Referrals: Diaz Alcala DO [Primary Care Provider] - 1-2 days Time of Disposition: 20:42
[2019-02-19 17:30] LABS: Basophils # (A) 0.2 k/uL (0-0.2); Basophils % (A) 1 %; Eosinophils # (A) 0.1 k/uL (0-0.7); Eosinophils % (A) 1 %; HCT 32.2 % (34.0-46.0); HGB 9.9 gm/dL (11.4-16.0); Hypochromasia Marked; Lymphocytes # (A) 2.3 k/uL (1.0-4.8); Lymphocytes % (A) 11 %; MCH 25.4 pg (25.0-35.0); MCHC 30.9 g/dL (31.0-37.0); MCV 82.2 fL (80.0-100.0); Mean Platelet Volume 6.1; Monocytes # (A) 1.2 k/uL (0-1.0); Monocytes % (A) 6 %; Neutrophils # (A) 16.4 k/uL (1.3-7.7); Neutrophils % (A) 79 %; Platelet Count 581 k/uL (150-450); RBC 3.91 m/uL (3.80-5.40); RDW 15.5 % (11.5-15.5); WBC 20.6 k/uL (3.8-10.6)
[2019-02-19] MEDS ORDERED: cefTRIAXone IN SWFI 1,000 MG/10 ML SYRINGE IVP STA (18:08)
[2019-02-19 18:16] LABS: ALT 23 U/L (9-52); AST 17 U/L (14-36); African American GFR (CKD) >90 (>60 ml/min/1.73 sqM); Albumin 3.6 g/dL (3.5-5.0); Alkaline Phosphatase 141 U/L (38-126); Anion Gap 12 mmol/L; Blood Urea Nitrogen 13 mg/dL (7-17); Calcium 9.2 mg/dL (8.4-10.2); Carbon Dioxide 28 mmol/L (22-30); Chloride 94 mmol/L (98-107); Glucose 162 mg/dL (74-99); Sodium 134 mmol/L (137-145); Total Bilirubin 0.4 mg/dL (0.2-1.3); Total Protein 6.2 g/dL (6.3-8.2)
[2019-02-19 18:20] LABS: Potassium 2.5 mmol/L (3.5-5.1)
[2019-02-19] MEDS ORDERED: POTASSIUM CHLORIDE ER 20 MEQ TAB.ER PO STA (18:34)
[2019-02-19] MEDS ORDERED: POTASSIUM CHLORIDE 10 MEQ in WATER FOR INJECTION 1 100ML.BAG IVPB STA (18:40)
--- NOTE | 2019-02-19 19:05 | CT ---
EXAMINATION TYPE: CT abdomen pelvis w con DATE OF EXAM: 02/19/2019 COMPARISON: January 29, 2019 HISTORY: Abdomen pain, vomiting, general malaise. Recent hernia sx CT DLP: 1682 mGycm Automated exposure control for dose reduction was used. TECHNIQUE: Helical acquisition of images was performed from the lung bases through the pelvis. CONTRAST: Performed without Oral Contrast and with IV Contrast, patient injected with 100 mL of Isovue 370. FINDINGS: There is minimal subsegmental atelectasis at the lung bases. Heart size is normal. There is no perica rdial effusion. There is small hiatal hernia. There are numerous calcified splenic granulomata. Stomach is intact. There are clips from cholecystec jose. Liver shows no focal defect. Bile ducts are not dilated. There is no evidence of pancreatic mas s. There is no adrenal mass. There is 2 cm cortical cyst upper pole left kidney. Kidneys show satisfacto ry contrast opacification. There is no hydronephrosis. There is 1 cm cortical cyst lower pole left ki dney. There is drainage catheter over the anterior lower abdomen in the subcutaneous fat. There is 3 x 1 cm irregular fluid collection over the lateral left mid abdomen. There is small is elongated flui d collection that measures 5 x 1 cm over the right lateral anterior mid abdomen. Ureters are not dilated. Bladder distends smoothly. There is no inguinal hernia. The fecal pattern is fairly normal. There is some retained fecal material in the rectum. There is no mesenteric edema. There is no ascites or free air. Small bowel pattern is fairly normal. There is multilevel spondylotic changes in the lumbar spine. There is a mild degenerative first-degre e L4-5 spondylolisthesis. There is no compression fracture. The bony pelvis is intact. IMPRESSION: THERE IS SUBCUTANEOUS FLUID OVER THE ANTERIOR ABDOMEN AT THE SURGERY SITE SLIGHTLY INCREASED COMPARED TO LAST EXAM AND CONSISTENT WITH SEROMA. ABSCESS NOT ENTIRELY EXCLUDED. THERE IS MINIMAL CONSTIPATIO N UNCHANGED. No acute abnormality within the abdomen pelvis.
[2019-02-19] MEDS ORDERED: HYDROmorphone 0.5 MG/0.5 ML SYRINGE IVP PRN (20:43)
[2019-02-19] MEDS ORDERED: ONDANSETRON 4 MG/2 ML VIAL IVP PRN (20:43)
[2019-02-19] MEDS ORDERED: ALPRAZolam 0.25 MG TAB PO PRN (20:43)
[2019-02-19] MEDS ORDERED: NALOXONE 0.4 MG/ML 1 ML VIAL IV PRN (20:43)
[2019-02-19] MEDS ORDERED: oxyCODONE ER 20 MG TAB.ER.12H PO STA (20:46)
[2019-02-19] MEDS: SODIUM CHLORIDE 0.9% 1,000 ML IV SCH (21:03)
[2019-02-19 21:58] LABS: Appearance,Urine Clear (Clear); Bacteria,Urine Many /hpf; Bilirubin,Urine Negative (Negative); Blood,Urine Negative (Negative); Color,Urine Colorless; Glucose,Urine (UA) Negative (Negative); Ketones,Urine Negative (Negative); Leukocyte Esterase,Urine Small (Negative); Nitrite,Urine Negative (Negative); Protein,Urine Negative (Negative); Specific Gravity,Urine 1.022 (1.001-1.035); Urobilinogen,Urine <2.0 mg/dL (<2.0)
[2019-02-20 08:02] LABS: Glucose,Whole Blood 162 mg/dL (75-99)
[2019-02-20] MEDS: INSULIN ASPART (NovoLOG) 100 UNIT/ML VIAL SQ SCH ×4 (08:38→20:33)
[2019-02-20] MEDS: MORPHINE SULFATE 4 MG/ML SYRINGE IV PRN (09:07)
[2019-02-20] MEDS ORDERED: PNEUMOCOCCAL VACC-PNEUMOVAX 23 25 MCG/0.5 ML VIAL IM ONE (10:26)
[2019-02-20 12:04] LABS: Glucose,Whole Blood 175 mg/dL (75-99)
[2019-02-20] MEDS: SODIUM CHLORIDE 0.9% 1,000 ML IV SCH (12:21)
[2019-02-20] MEDS: CILOSTAZOL 100 MG TAB PO SCH (12:22)
[2019-02-20] MEDS: amLODIPine 10 MG TAB PO SCH (12:22)
[2019-02-20] MEDS: oxyCODONE ER 20 MG TAB.ER.12H PO SCH ×2 (12:23→20:31)
[2019-02-20] MEDS: METOPROLOL TARTRATE 50 MG TAB PO SCH ×2 (12:23→20:33)
[2019-02-20] MEDS: predniSONE 10 MG TAB PO SCH (12:23)
[2019-02-20] MEDS: LEVOTHYROXINE 88 MCG TAB PO SCH (12:23)
[2019-02-20] MEDS: AMIODARONE 100 MG TAB PO SCH (12:23)
[2019-02-20 12:35] LABS: Basophils # (A) 0.1 k/uL (0-0.2); Basophils % (A) 0 %; Eosinophils # (A) 0.3 k/uL (0-0.7); Eosinophils % (A) 2 %; HGB 9.2 gm/dL (11.4-16.0); Hypochromasia Marked; Lymphocytes # (A) 1.5 k/uL (1.0-4.8); Lymphocytes % (A) 9 %; MCH 25.5 pg (25.0-35.0); MCHC 30.8 g/dL (31.0-37.0); MCV 82.6 fL (80.0-100.0); Mean Platelet Volume 5.9; Monocytes # (A) 0.7 k/uL (0-1.0); Monocytes % (A) 5 %; Neutrophils # (A) 13.3 k/uL (1.3-7.7); Neutrophils % (A) 83 %; Platelet Count 546 k/uL (150-450); RBC 3.62 m/uL (3.80-5.40); RDW 15.8 % (11.5-15.5)
[2019-02-20 12:46] LABS: African American GFR (CKD) >90 (>60 ml/min/1.73 sqM); Anion Gap 7 mmol/L; Blood Urea Nitrogen 5 mg/dL (7-17); Carbon Dioxide 28 mmol/L (22-30); Chloride 102 mmol/L (98-107); Glucose 174 mg/dL (74-99); Magnesium 1.5 mg/dL (1.6-2.3); Potassium 3.9 mmol/L (3.5-5.1); Sodium 137 mmol/L (137-145)
[2019-02-20] MEDS: PIPERACILLIN-TAZOBACTAM 3.375 GM in SODIUM CHLORIDE 0.9% 100 ML IVPB SCH (15:53)
[2019-02-20] MEDS: MAGNESIUM SULFATE-D5W PMX 1 GM in DEXTROSE/WATER 1 100ML.BAG IVPB SCH ×3 (15:54→18:27)
--- NOTE | 2019-02-20 16:11 | P.GSCN ---
History of Present Illness Consult date: 02/20/19 Reason for Consult: nausea vomiting Requesting physician: Ravi Eden History of present illness: CHIEF COMPLAINT: nausea and vomiting HISTORY OF PRESENT ILLNESS: 73 year old female known to surgical services from recent repair of incisional hernia on 01/18/[address] Montoya. Patients course was complicated by rectus sheath hemorrhage. Patient presents to the ER with complaints of generalized weakness, abdominal pain, nausea, and vomiting. Patient reports drainage from distal end of incision. She also reports a lot of drainage from her MASTER drain. Denies diarrhea or constipation. Denies fever or chills. PAST MEDICAL HISTORY: See list. PAST SURGICAL HISTORY: See list. SOCIAL HISTORY: No illicit drug use. REVIEW OF SYSTEMS: CONSTITUTIONAL: Denies fever or chills. HEENT: Denies blurred vision, vision changes, or eye pain. Denies hemoptysis CARDIOVASCULAR: Denies chest pain or pressure. RESPIRATORY: No shortness of breath. GASTROINTESTINAL: Refer to [facility] for pertinent findings HEMATOLOGIC: Denies bleeding disorders. GENITOURINARY: Denies any blood in urine. SKIN: Denies pruitis. Denies rash. PHYSICAL EXAM: VITAL SIGNS: Reviewed. GENERAL: Well-developed in no acute distress. HEENT: No sclera icterus. Extraocular movements grossly intact. Moist buccal mucosa. Head is atraumatic, normocephalic. ABDOMEN: Obese. Soft. Nondistended. Midline incision with andrei at distal end. Distal end of incision with small amount drainage. MASTER with serosanguineous drainage. NEUROLOGIC: Alert and oriented. Cranial nerves II through XII grossly intact. LABORATORY DATA: Laboratory data upon admission reveals white count 20.6. Hemoglobin 9.9. Platelet count 581. Potassium 2.5. Lactic acid 3.5. Magnesium 1.4. IMAGING: CT abdomen and pelvis: Subcutaneous fluid over the anterior abdomen at the surgery site slightly increased compared to last exam. Consistent with seroma. Abscess not entirely excluded. ASSESSMENT: 1. Nausea and vomiting 2. Abdominal seroma, possible abscess 3. Leukocytosis 4. History of recent incisional hernia repair complicated by rectus sheath hemorrhage PLAN: 1. Diet as tolerated 2. Monitor output from MASTER drain 3. Local wound care 4. Begin Zosyn. Monitor WBC. 5. Consult Dr. Lancaster for further evaluation 6. Replace magnesium 7. No surgical intervention recommended at this time Nurse practitioner note has been reviewed by physician. Signing provider agrees with the documented findings, assessment, and plan of care. Past Medical History Past Medical History: Atrial Fibrillation, Coronary Artery Disease (CAD), Diabetes Mellitus, Hyperlipidemia, Hypertension, Memory Impairment, Osteoarthritis (OA), Thyroid Disorder, Vascular Disorder Additional Past Medical History / Comment(s): 01/18/19 incisional hernia repair- open with mesh and has drain, paroxysmal Afib, NIDDM type II, PAD, decreased circulation to R lower extremity-pt states had several unsuccessful attempts at placing artificial artery, bowel surgery d/t blood clot to colon post operatively, frequent diarrhea, urinary incontinence, chronic elevated WBC, chronic low back pain/pinched nerve, bilateral shoulder pain-DJD, "forgetful", hypothyroid, vertigo at times. History of Any Multi-Drug Resistant Organisms: ESBL Year Discovered:: 03/04/18 MDRO Source:: BODY FLUID ASPIRATE Past Surgical History: Appendectomy, Bowel Resection, Breast Surgery, Cholecystectomy, Coronary Bypass/CABG, Heart Catheterization, Hernia Repair, Joint Replacement, Orthopedic Surgery Additional Past Surgical History / Comment(s): 01/18/19 incisional hernia repair- open with mesh, 12/11/17 CABG 4 vessel, 12/20/17 colectomy/ileostomy with reversal, R leg attempted bypasses with artificial artery which pt states were unsuccessful, L breast benign tumor removed, bilateral total knee arthroplasties, R rotator cuff repair, low back epidural injections, piccs-since removed. Past Anesthesia/Blood Transfusion Reactions: No Reported Reaction Additional Past Anesthesia/Blood Transfusion Reaction / Comm: Pt has recently received blood and also years ago received blood without reaction. Smoking Status: Former smoker - Past Family History Mother Family Medical History: Cancer Additional Family Medical History / Comment(s): Uterine cancer. Father Family Medical History: Congestive Heart Failure (CHF) Medications and Allergies Home Medications Medication Instructions Recorded Confirmed Type DULoxetine HCL [Cymbalta] 60 mg PO HS 12/14/16 02/19/19 History Ergocalciferol (Vitamin D2) 50,000 unit PO COHEN 12/14/16 02/19/19 History [Vitamin D2] Atorvastatin [Lipitor] 40 mg PO HS 01/24/18 02/19/19 History Amiodarone [Cordarone] 100 mg PO AC-LUNCH 03/02/18 02/19/19 History Furosemide [Lasix] 40 mg PO BID 03/02/18 02/19/19 History Latanoprost/Pf [Latanoprost 0.005% 1 drop BOTH EYES HS 03/02/18 02/19/19 History Eye Drop] Cilostazol [Pletal] 100 mg PO DAILY 11/15/18 02/19/19 History Levothyroxine Sodium [Tirosint] 88 mcg PO DAILY 11/15/18 02/19/19 History Losartan Potassium 100 mg PO DAILY 11/15/18 02/19/19 History Metoprolol Tartrate [Lopressor] 50 mg PO BID 11/15/18 02/19/19 History Potassium Chloride ER [K-Dur 20] 20 meq PO DAILY 11/15/18 02/19/19 History amLODIPine [Norvasc] 10 mg PO DAILY 11/15/18 02/19/19 History metFORMIN HCL [Glucophage] 500 mg PO BID 11/15/18 02/19/19 History oxyCODONE ER [OxyCONTIN] 20 mg PO BID 11/15/18 02/19/19 History predniSONE 10 mg PO AC-LUNCH 11/15/18 02/19/19 History Ondansetron [Zofran] 8 mg PO DAILY PRN 01/17/19 02/19/19 History Loperamide [Imodium] 2 mg PO DAILY 02/19/19 02/19/19 History Allergies Allergy/AdvReac Type Severity Reaction Status Date / Time No Known Allergies Allergy Verified 02/19/19 16:00 Surgical - Exam Vital Signs Temp Pulse Resp BP Pulse Ox 98.3 F 117 H 18 110/67 96 02/19/19 14:09 02/19/19 14:09 02/19/19 14:09 02/19/19 14:09 02/19/19 14:09 Results - Labs 02/20/19 11:51 02/20/19 11:51 Abnormal Lab Results - Last 24 Hours (Table) 02/19/19 02/19/19 02/19/19 Range/Units 17:12 17:12 17:12 WBC 20.6 H (3.8-10.6) k/uL RBC (3.80-5.40) m/uL Hgb 9.9 L (11.4-16.0) gm/dL Hct 32.2 L (34.0-46.0) % MCHC 30.9 L (31.0-37.0) g/dL RDW (11.5-15.5) % Plt Count 581 H (150-450) k/uL Neutrophils # 16.4 H (1.3-7.7) k/uL Monocytes # 1.2 H (0-1.0) k/uL Sodium 134 L (137-145) mmol/L Potassium 2.5 L* (3.5-5.1) mmol/L Chloride 94 L (98-107) mmol/L BUN (7-17) mg/dL Glucose 162 H (74-99) mg/dL POC Glucose (mg/dL) (75-99) mg/dL Plasma Lactic Acid Frederick 3.5 H* (0.7-2.0) mmol/L Magnesium (1.6-2.3) mg/dL Alkaline Phosphatase 141 H (38-126) U/L Total Protein 6.2 L (6.3-8.2) g/dL Ur Leukocyte Esterase (Negative) Urine Bacteria (None) /hpf 02/19/19 02/19/19 02/19/19 Range/Units 17:12 20:40 21:12 WBC (3.8-10.6) k/uL RBC (3.80-5.40) m/uL Hgb (11.4-16.0) gm/dL Hct (34.0-46.0) % MCHC (31.0-37.0) g/dL RDW (11.5-15.5) % Plt Count (150-450) k/uL Neutrophils # (1.3-7.7) k/uL Monocytes # (0-1.0) k/uL Sodium (137-145) mmol/L Potassium (3.5-5.1) mmol/L Chloride (98-107) mmol/L BUN (7-17) mg/dL Glucose (74-99) mg/dL POC Glucose (mg/dL) (75-99) mg/dL Plasma Lactic Acid Frederick 3.4 H* (0.7-2.0) mmol/L Magnesium 1.4 L (1.6-2.3) mg/dL Alkaline Phosphatase (38-126) U/L Total Protein (6.3-8.2) g/dL Ur Leukocyte Esterase Small H (Negative) Urine Bacteria Many H (None) /hpf 02/20/19 02/20/19 02/20/19 Range/Units 07:48 11:51 11:51 WBC 16.0 H (3.8-10.6) k/uL RBC 3.62 L (3.80-5.40) m/uL Hgb 9.2 L (11.4-16.0) gm/dL Hct 30.0 L (34.0-46.0) % MCHC 30.8 L (31.0-37.0) g/dL RDW 15.8 H (11.5-15.5) % Plt Count 546 H (150-450) k/uL Neutrophils # 13.3 H (1.3-7.7) k/uL Monocytes # (0-1.0) k/uL Sodium (137-145) mmol/L Potassium (3.5-5.1) mmol/L Chloride (98-107) mmol/L BUN 5 L (7-17) mg/dL Glucose 174 H (74-99) mg/dL POC Glucose (mg/dL) 162 H (75-99) mg/dL Plasma Lactic Acid Frederick (0.7-2.0) mmol/L Magnesium 1.5 L (1.6-2.3) mg/dL Alkaline Phosphatase (38-126) U/L Total Protein (6.3-8.2) g/dL Ur Leukocyte Esterase (Negative) Urine Bacteria (None) /hpf 02/20/19 Range/Units 12:03 WBC (3.8-10.6) k/uL RBC (3.80-5.40) m/uL Hgb (11.4-16.0) gm/dL Hct (34.0-46.0) % MCHC (31.0-37.0) g/dL RDW (11.5-15.5) % Plt Count (150-450) k/uL Neutrophils # (1.3-7.7) k/uL Monocytes # (0-1.0) k/uL Sodium (137-145) mmol/L Potassium (3.5-5.1) mmol/L Chloride (98-107) mmol/L BUN (7-17) mg/dL Glucose (74-99) mg/dL POC Glucose (mg/dL) 175 H (75-99) mg/dL Plasma Lactic Acid Frederick (0.7-2.0) mmol/L Magnesium (1.6-2.3) mg/dL Alkaline Phosphatase (38-126) U/L Total Protein (6.3-8.2) g/dL Ur Leukocyte Esterase (Negative) Urine Bacteria (None) /hpf Diabetes panel 02/19/19 02/20/19 Range/Units 17:12 11:51 Sodium 134 L 137 (137-145) mmol/L Potassium 2.5 L* 3.9 (3.5-5.1) mmol/L Chloride 94 L 102 (98-107) mmol/L Carbon Dioxide 28 28 (22-30) mmol/L BUN 13 5 L (7-17) mg/dL Creatinine 0.74 0.64 (0.52-1.04) mg/dL Glucose 162 H 174 H (74-99) mg/dL Calcium 9.2 9.0 (8.4-10.2) mg/dL AST 17 (14-36) U/L ALT 23 (9-52) U/L Alkaline Phosphatase 141 H (38-126) U/L Total Protein 6.2 L (6.3-8.2) g/dL Albumin 3.6 (3.5-5.0) g/dL Calcium panel 02/19/19 02/20/19 Range/Units 17:12 11:51 Calcium 9.2 9.0 (8.4-10.2) mg/dL Albumin 3.6 (3.5-5.0) g/dL Pituitary panel 02/19/19 02/20/19 Range/Units 17:12 11:51 Sodium 134 L 137 (137-145) mmol/L Potassium 2.5 L* 3.9 (3.5-5.1) mmol/L Chloride 94 L 102 (98-107) mmol/L Carbon Dioxide 28 28 (22-30) mmol/L BUN 13 5 L (7-17) mg/dL Creatinine 0.74 0.64 (0.52-1.04) mg/dL Glucose 162 H 174 H (74-99) mg/dL Calcium 9.2 9.0 (8.4-10.2) mg/dL Adrenal panel 02/19/19 02/20/19 Range/Units 17:12 11:51 Sodium 134 L 137 (137-145) mmol/L Potassium 2.5 L* 3.9 (3.5-5.1) mmol/L Chloride 94 L 102 (98-107) mmol/L Carbon Dioxide 28 28 (22-30) mmol/L BUN 13 5 L (7-17) mg/dL Creatinine 0.74 0.64 (0.52-1.04) mg/dL Glucose 162 H 174 H (74-99) mg/dL Calcium 9.2 9.0 (8.4-10.2) mg/dL Total Bilirubin 0.4 (0.2-1.3) mg/dL AST 17 (14-36) U/L ALT 23 (9-52) U/L Alkaline Phosphatase 141 H (38-126) U/L Total Protein 6.2 L (6.3-8.2) g/dL Albumin 3.6 (3.5-5.0) g/dL
[2019-02-20 17:23] LABS: Glucose,Whole Blood 222 mg/dL (75-99)
--- NOTE | 2019-02-20 19:42 | P.HPIM ---
History of Present Illness H&P Date: 02/20/19 Chief Complaint: Nausea vomiting History of presenting complaint: This is a pleasant 73-year-old patient of Dr. Alcala. Chronic stable medical conditions include atrial fibrillation, coronary artery disease, diabetes, hyperlipidemia, hypertension, Randy arthritis, hypothyroid, peripheral arterial disease. Patient and December 2017 had a "coronary bypass for ischemic bowel resulting in the ostomy and a wound VAC. Patient subsequently had intra- abdominal abscess and required protracted course of antibiotics. Back in March 2018 had an abscess and patient did have a MASTER drain in place for the same. And December of this year patient had the incisional hernia with mesh placed. By Dr. Montoya. Patient does have significant bleeding from a MASTER drain. Continues to have a MASTER drain in place. Issue now presents with nausea vomiting for good 2 weeks. Unable to keep anything really down. Getting weak tired rundown. Barely able to do anything. He will at some loose stools yesterday. No obvious fever and chills. Does tired and rundown. Computed tomography scan did show some fluid collection at the operative site. Had elevated white count. Started on IV Zosyn. Admitted. Consultation was made to Dr. Lindsay Lancaster from ID. Review of systems: GEN.: Weak and tired EYES: None HEENT: None NECK: None RESPIRATORY: None CARDIOVASCULAR: None GASTROINTESTINAL: As above GENITOURINARY: None MUSCULOSKELETAL: Pain in the joints, muscle weakness LYMPHATICS: None HEMATOLOGICAL: None PSYCHIATRY: None NEUROLOGICAL: None Past medical history: Coronary artery disease with bypass, acute ischemic bowel with perforation, paroxysmal atrial fibrillation, peripheral artery disease, hypothyroid, diabetes mellitus type 2, chronic low back pain from arthritis, depression, hyperlipidemia, hypertension, recurrent intra-abdominal abscess Social history: Smoked a pack a day for 43 years. Stopped in 2007 alcohol rarely. Family history: Uterine cancer Physical examination: VITAL SIGNS: 98.3, 117, 18, 110/67, 96% room air GENERAL: BMI 32.8, laying in bed tired appearing. EYES: Pupils equal. Conjunctiva pale HEENT: External appearance of nose and ears normal, oral cavity grossly normal. NECK: JVD not raised; masses not palpable. HEART: First and second heart sounds are normal; some edema. LUNGS: Respiratory rate normal; decreased breath sounds. ABDOMEN: Soft, nontender, liver spleen not palpable, no masses palpable. MASTER drain with bloody drainage clear drainage PSYCH: Alert and oriented x3; mood and affect normal. NEUROLOGICAL: Cranial nerves grossly intact; no facial asymmetry, power and sensation grossly intact. LYMPHATICS: No lymph nodes palpable in the axilla and neck INVESTIGATIONS, reviewed in the clinical context: White count 16 hemoglobin 9.2 platelets 546 potassium 3.9 bun 5 creatinine 0.64 Magnesium 1.5 EKG tracing normal sinus rhythm nonspecific T-wave changes Computed tomography scan abdomen-subcutaneous fluid over the anterior abdomen at the surgical site slightly increased compared to last exam, consistent with seroma. Assessment: -Persistent nausea vomiting for last 2 weeks, with poor oral intake leading to increased asthenia -Seroma at the recent site of incisional hernia repair, could be infected given elevated white count -Coronary artery disease per prior history of bypass -Paroxysmal atrial fibrillation -Peripheral artery disease -Hypothyroid -Diabetes mellitus type 2 on oral hypoglycemic -Lumbar osteoarthritis -Hyperlipidemia -Essential hypertension -History of bowel perforation recurrent intra-abdominal abscess -Obesity BMI 32.8 Plan: Consultations made to infectious disease and Dr. Montoya from general surgery. We'll consult PTOT. Home medications were resumed. Patient was put on IV Zosyn. Still is a MASTER drain in place. The patient see a dietitian. Care was discussed with the patient. Questions were answered. Past Medical History Past Medical History: Atrial Fibrillation, Coronary Artery Disease (CAD), Diabetes Mellitus, Hyperlipidemia, Hypertension, Memory Impairment, Osteoarthritis (OA), Thyroid Disorder, Vascular Disorder Additional Past Medical History / Comment(s): 01/18/19 incisional hernia repair- open with mesh and has drain, paroxysmal Afib, NIDDM type II, PAD, decreased circulation to R lower extremity-pt states had several unsuccessful attempts at placing artificial artery, bowel surgery d/t blood clot to colon post operatively, frequent diarrhea, urinary incontinence, chronic elevated WBC, chronic low back pain/pinched nerve, bilateral shoulder pain-DJD, "forgetful", hypothyroid, vertigo at times. History of Any Multi-Drug Resistant Organisms: ESBL Date of last positivie culture/infection: 03/04/18 MDRO Source:: BODY FLUID ASPIRATE Past Surgical History: Appendectomy, Bowel Resection, Breast Surgery, Cholecystectomy, Coronary Bypass/CABG, Heart Catheterization, Hernia Repair, Joint Replacement, Orthopedic Surgery Additional Past Surgical History / Comment(s): 01/18/19 incisional hernia repair- open with mesh, 12/11/17 CABG 4 vessel, 12/20/17 colectomy/ileostomy with reversal, R leg attempted bypasses with artificial artery which pt states were unsuccessful, L breast benign tumor removed, bilateral total knee arthroplasties, R rotator cuff repair, low back epidural injections, piccs-since removed. Past Anesthesia/Blood Transfusion Reactions: No Reported Reaction Additional Past Anesthesia/Blood Transfusion Reaction / Comment(s): Pt has recently received blood and also years ago received blood without reaction. Smoking Status: Former smoker - Past Family History Mother Family Medical History: Cancer Additional Family Medical History / Comment(s): Uterine cancer. Father Family Medical History: Congestive Heart Failure (CHF) Medications and Allergies Home Medications Medication Instructions Recorded Confirmed Type DULoxetine HCL [Cymbalta] 60 mg PO HS 12/14/16 02/19/19 History Ergocalciferol (Vitamin D2) 50,000 unit PO COHEN 12/14/16 02/19/19 History [Vitamin D2] Atorvastatin [Lipitor] 40 mg PO HS 01/24/18 02/19/19 History Amiodarone [Cordarone] 100 mg PO AC-LUNCH 03/02/18 02/19/19 History Furosemide [Lasix] 40 mg PO BID 03/02/18 02/19/19 History Latanoprost/Pf [Latanoprost 0.005% 1 drop BOTH EYES HS 03/02/18 02/19/19 History Eye Drop] Cilostazol [Pletal] 100 mg PO DAILY 11/15/18 02/19/19 History Levothyroxine Sodium [Tirosint] 88 mcg PO DAILY 11/15/18 02/19/19 History Losartan Potassium 100 mg PO DAILY 11/15/18 02/19/19 History Metoprolol Tartrate [Lopressor] 50 mg PO BID 11/15/18 02/19/19 History Potassium Chloride ER [K-Dur 20] 20 meq PO DAILY 11/15/18 02/19/19 History amLODIPine [Norvasc] 10 mg PO DAILY 11/15/18 02/19/19 History metFORMIN HCL [Glucophage] 500 mg PO BID 11/15/18 02/19/19 History oxyCODONE ER [OxyCONTIN] 20 mg PO BID 11/15/18 02/19/19 History predniSONE 10 mg PO AC-LUNCH 11/15/18 02/19/19 History Ondansetron [Zofran] 8 mg PO DAILY PRN 01/17/19 02/19/19 History Loperamide [Imodium] 2 mg PO DAILY 02/19/19 02/19/19 History Allergies Allergy/AdvReac Type Severity Reaction Status Date / Time No Known Allergies Allergy Verified 02/19/19 16:00 Physical Exam Vitals: Vital Signs Temp Pulse Pulse Resp BP BP Pulse Ox 02/20/19 07:00 98.4 F 108 H 16 124/65 97 02/20/19 04:30 110 H 17 108/58 95 02/20/19 00:00 109 H 16 141/71 96 02/19/19 23:00 108 H 12 144/84 97 02/19/19 22:00 107 H 14 152/86 97 02/19/19 20:00 104 H 16 135/87 74 L 02/19/19 19:35 16 135/72 97 02/19/19 18:25 102 H 18 135/72 95 02/19/19 16:39 104 H 18 135/72 96 02/19/19 14:09 98.3 F 117 H 18 110/67 96 Results CBC & Chem 7: 02/20/19 11:51 02/20/19 11:51 Labs: Abnormal Lab Results - Last 24 Hours (Table) 02/19/19 02/19/19 02/19/19 Range/Units 17:12 17:12 17:12 WBC 20.6 H (3.8-10.6) k/uL Hgb 9.9 L (11.4-16.0) gm/dL Hct 32.2 L (34.0-46.0) % MCHC 30.9 L (31.0-37.0) g/dL Plt Count 581 H (150-450) k/uL Neutrophils # 16.4 H (1.3-7.7) k/uL Monocytes # 1.2 H (0-1.0) k/uL Sodium 134 L (137-145) mmol/L Potassium 2.5 L* (3.5-5.1) mmol/L Chloride 94 L (98-107) mmol/L Glucose 162 H (74-99) mg/dL POC Glucose (mg/dL) (75-99) mg/dL Plasma Lactic Acid Frederick 3.5 H* (0.7-2.0) mmol/L Magnesium (1.6-2.3) mg/dL Alkaline Phosphatase 141 H (38-126) U/L Total Protein 6.2 L (6.3-8.2) g/dL Ur Leukocyte Esterase (Negative) Urine Bacteria (None) /hpf 02/19/19 02/19/19 02/19/19 Range/Units 17:12 20:40 21:12 WBC (3.8-10.6) k/uL Hgb (11.4-16.0) gm/dL Hct (34.0-46.0) % MCHC (31.0-37.0) g/dL Plt Count (150-450) k/uL Neutrophils # (1.3-7.7) k/uL Monocytes # (0-1.0) k/uL Sodium (137-145) mmol/L Potassium (3.5-5.1) mmol/L Chloride (98-107) mmol/L Glucose (74-99) mg/dL POC Glucose (mg/dL) (75-99) mg/dL Plasma Lactic Acid Frederick 3.4 H* (0.7-2.0) mmol/L Magnesium 1.4 L (1.6-2.3) mg/dL Alkaline Phosphatase (38-126) U/L Total Protein (6.3-8.2) g/dL Ur Leukocyte Esterase Small H (Negative) Urine Bacteria Many H (None) /hpf 02/20/19 Range/Units 07:48 WBC (3.8-10.6) k/uL Hgb (11.4-16.0) gm/dL Hct (34.0-46.0) % MCHC (31.0-37.0) g/dL Plt Count (150-450) k/uL Neutrophils # (1.3-7.7) k/uL Monocytes # (0-1.0) k/uL Sodium (137-145) mmol/L Potassium (3.5-5.1) mmol/L Chloride (98-107) mmol/L Glucose (74-99) mg/dL POC Glucose (mg/dL) 162 H (75-99) mg/dL Plasma Lactic Acid Frederick (0.7-2.0) mmol/L Magnesium (1.6-2.3) mg/dL Alkaline Phosphatase (38-126) U/L Total Protein (6.3-8.2) g/dL Ur Leukocyte Esterase (Negative) Urine Bacteria (None) /hpf Thrombosis Risk Factor Assmnt - Choose All That Apply Any of the Below Risk Factors Present?: Yes Each Factor Represents 1 point: Obesity (BMI >25) Other Risk Factors: Yes Each Risk Factor Represents 2 Points: Age 61-74 years Other congenital or acquired thrombophilia - If yes, enter type in comment: No Thrombosis Risk Factor Assessment Total Risk Factor Score: 3 Thrombosis Risk Factor Assessment Level: Moderate Risk
[2019-02-20 20:28] LABS: Glucose,Whole Blood 235 mg/dL (75-99)
[2019-02-20] MEDS: DULoxetine HCL 60 MG CAPSULE.DR PO SCH (20:31)
[2019-02-20] MEDS: ATORVASTATIN 40 MG TAB PO SCH (20:33)
[2019-02-20] MEDS: LATANOPROST 0.005% OPHTH DROPS 2.5 ML BTL BOTH EYES SCH (23:19)
[2019-02-21] MEDS: PIPERACILLIN-TAZOBACTAM 3.375 GM in SODIUM CHLORIDE 0.9% 100 ML IVPB SCH ×4 (00:02→23:29)
[2019-02-21] MEDS: SODIUM CHLORIDE 0.9% 1,000 ML IV SCH ×2 (02:15→12:46)
[2019-02-21] MEDS: LEVOTHYROXINE 88 MCG TAB PO SCH (05:21)
[2019-02-21 06:48] LABS: Glucose,Whole Blood 141 mg/dL (75-99)
[2019-02-21] MEDS: amLODIPine 10 MG TAB PO SCH (07:42)
[2019-02-21] MEDS: METOPROLOL TARTRATE 50 MG TAB PO SCH ×2 (07:43→20:33)
[2019-02-21] MEDS: LOSARTAN 50 MG TAB PO SCH (07:43)
[2019-02-21] MEDS: CILOSTAZOL 100 MG TAB PO SCH (07:51)
[2019-02-21] MEDS: oxyCODONE ER 20 MG TAB.ER.12H PO SCH ×2 (07:51→20:31)
[2019-02-21] MEDS: predniSONE 10 MG TAB PO SCH (07:52)
[2019-02-21] MEDS: INSULIN ASPART (NovoLOG) 100 UNIT/ML VIAL SQ SCH ×4 (07:53→20:33)
[2019-02-21 08:03] LABS: Basophils # (A) 0.1 k/uL (0-0.2); Basophils % (A) 0 %; Eosinophils # (A) 0.3 k/uL (0-0.7); Eosinophils % (A) 3 %; HGB 8.4 gm/dL (11.4-16.0); Hypochromasia Marked; Lymphocytes # (A) 1.8 k/uL (1.0-4.8); Lymphocytes % (A) 14 %; MCHC 30.2 g/dL (31.0-37.0); MCV 82.7 fL (80.0-100.0); Mean Platelet Volume 5.8; Monocytes # (A) 0.6 k/uL (0-1.0); Monocytes % (A) 5 %; Neutrophils # (A) 10.2 k/uL (1.3-7.7); Neutrophils % (A) 77 %; Platelet Count 497 k/uL (150-450); RBC 3.38 m/uL (3.80-5.40); WBC 13.3 k/uL (3.8-10.6)
[2019-02-21 08:14] LABS: African American GFR (CKD) >90 (>60 ml/min/1.73 sqM); Anion Gap 5 mmol/L; Blood Urea Nitrogen 4 mg/dL (7-17); Calcium 8.8 mg/dL (8.4-10.2); Carbon Dioxide 28 mmol/L (22-30); Chloride 107 mmol/L (98-107); Glucose 133 mg/dL (74-99); Magnesium 2.3 mg/dL (1.6-2.3); Potassium 3.3 mmol/L (3.5-5.1); Sodium 140 mmol/L (137-145)
--- NOTE | 2019-02-21 08:51 | P.CONS ---
History of Present Illness - Reason for Consult Consult date: 02/20/19 Leukocytosis Requesting physician: Parveen Dietz - Chief Complaint Nausea vomiting not feeling well 2 weeks - History of Present Illness Patient is 73-year-old female who was recently admitted to this facility and the patient did have a seat and hernia repair with a mesh postop course complicated by development of rectus sheath hematoma and the patient did have elevated white count but no fever her white count improved with antibiotics and the patient was discharged home on Bactrim DS patient is now presenting back to the hospital with a chief complaints of not feeling well her nausea and vomiting and less and has been getting worse for the last 2 weeks she felt weak to the point that she decided to come to the ER yesterday on arrival to the ER the patient has been afebrile however she did have elevated white count of 20,000 the patient has becoming some dull lower abdominal pain intensity for 5- 10 and no radiation the patient abdominal incision is currently healed except the lower end which apparently slight drainage she still have the MASTER drain is draining some serosanguineous secretions patient did have a CT of abdominal pain is tissue some fluid collection at the surgical site the patient was started on Zosyn and admitted to the hospital and infectious disease was consulted for further recommendation regarding antibiotic therapy Review of Systems Positive point has been mentioned in the HPI rest of the systems are negative Past Medical History Past Medical History: Atrial Fibrillation, Coronary Artery Disease (CAD), Diabetes Mellitus, Hyperlipidemia, Hypertension, Memory Impairment, Osteoarthritis (OA), Thyroid Disorder, Vascular Disorder Additional Past Medical History / Comment(s): 01/18/19 incisional hernia repair- open with mesh and has drain, paroxysmal Afib, NIDDM type II, PAD, decreased circulation to R lower extremity-pt states had several unsuccessful attempts at placing artificial artery, bowel surgery d/t blood clot to colon post operatively, frequent diarrhea, urinary incontinence, chronic elevated WBC, chronic low back pain/pinched nerve, bilateral shoulder pain-DJD, "forgetful", hypothyroid, vertigo at times. History of Any Multi-Drug Resistant Organisms: ESBL Year Discovered:: 03/04/18 MDRO Source:: BODY FLUID ASPIRATE Past Surgical History: Appendectomy, Bowel Resection, Breast Surgery, Cholecystectomy, Coronary Bypass/CABG, Heart Catheterization, Hernia Repair, Joint Replacement, Orthopedic Surgery Additional Past Surgical History / Comment(s): 01/18/19 incisional hernia repair-open with mesh, 12/11/17 CABG 4 vessel, 12/20/17 colectomy/ileostomy with reversal, R leg attempted bypasses with artificial artery which pt states were unsuccessful, L breast benign tumor removed, bilateral total knee arthroplasties, R rotator cuff repair, low back epidural injections, piccs-since removed. Past Anesthesia/Blood Transfusion Reactions: No Reported Reaction Additional Past Anesthesia/Blood Transfusion Reaction / Comm: Pt has recently received blood and also years ago received blood without reaction. Smoking Status: Former smoker - Past Family History Mother Family Medical History: Cancer Additional Family Medical History / Comment(s): Uterine cancer. Father Family Medical History: Congestive Heart Failure (CHF) Medications and Allergies Home Medications Medication Instructions Recorded Confirmed Type DULoxetine HCL [Cymbalta] 60 mg PO HS 12/14/16 02/19/19 History Ergocalciferol (Vitamin D2) 50,000 unit PO COHEN 12/14/16 02/19/19 History [Vitamin D2] Atorvastatin [Lipitor] 40 mg PO HS 01/24/18 02/19/19 History Amiodarone [Cordarone] 100 mg PO AC-LUNCH 03/02/18 02/19/19 History Furosemide [Lasix] 40 mg PO BID 03/02/18 02/19/19 History Latanoprost/Pf [Latanoprost 0.005% 1 drop BOTH EYES HS 03/02/18 02/19/19 History Eye Drop] Cilostazol [Pletal] 100 mg PO DAILY 11/15/18 02/19/19 History Levothyroxine Sodium [Tirosint] 88 mcg PO DAILY 11/15/18 02/19/19 History Losartan Potassium 100 mg PO DAILY 11/15/18 02/19/19 History Metoprolol Tartrate [Lopressor] 50 mg PO BID 11/15/18 02/19/19 History Potassium Chloride ER [K-Dur 20] 20 meq PO DAILY 11/15/18 02/19/19 History amLODIPine [Norvasc] 10 mg PO DAILY 11/15/18 02/19/19 History metFORMIN HCL [Glucophage] 500 mg PO BID 11/15/18 02/19/19 History oxyCODONE ER [OxyCONTIN] 20 mg PO BID 11/15/18 02/19/19 History predniSONE 10 mg PO AC-LUNCH 11/15/18 02/19/19 History Ondansetron [Zofran] 8 mg PO DAILY PRN 01/17/19 02/19/19 History Loperamide [Imodium] 2 mg PO DAILY 02/19/19 02/19/19 History Allergies Allergy/AdvReac Type Severity Reaction Status Date / Time No Known Allergies Allergy Verified 02/19/19 16:00 Physical Exam Vitals: Vital Signs Temp Pulse Pulse Resp BP BP Pulse Ox 02/20/19 07:00 98.4 F 108 H 16 124/65 97 02/20/19 04:30 110 H 17 108/58 95 02/20/19 00:00 109 H 16 141/71 96 02/19/19 23:00 108 H 12 144/84 97 02/19/19 22:00 107 H 14 152/86 97 02/19/19 20:00 104 H 16 135/87 74 L 02/19/19 19:35 16 135/72 97 02/19/19 18:25 102 H 18 135/72 95 02/19/19 16:39 104 H 18 135/72 96 02/19/19 14:09 98.3 F 117 H 18 110/67 96 Intake and Output 02/19/19 02/20/19 02/20/19 22:59 06:59 14:59 Other: Voiding Method Diaper GENERAL DESCRIPTION: An elderly female lying in bed, no distress. No tachypnea or accessory muscle of respiration use. HEENT: Shows Pallor , no scleral icterus. Oral mucous membrane is dry. No pharyngeal erythema or thrush NECK: Trachea central, no thyromegaly. LUNGS: Unlabored breathing. Clear to auscultation anteriorly. No wheeze or crackle. HEART: S1, S2, regular rate and rhythm. No loud murmur ABDOMEN: Soft, lower end of the incision is not healing no significant purulent drainage was noticed or surrounding swelling and redness ,no guarding or rigidity, no organomegaly EXTREMITIES: No edema of feet. SKIN: No rash, no masses palpable. NEUROLOGICAL: The patient is awake, alert, oriented x3, mood and affect normal. Results CBC & Chem 7: 02/21/19 07:08 02/21/19 07:11 Labs: Abnormal Lab Results - Last 24 Hours (Table) 10/02/19/19 02/19/19 Range/Units 17:12 17:12 17:12 WBC 20.6 H (3.8-10.6) k/uL RBC (3.80-5.40) m/uL Hgb 9.9 L (11.4-16.0) gm/dL Hct 32.2 L (34.0-46.0) % MCHC 30.9 L (31.0-37.0) g/dL RDW (11.5-15.5) % Plt Count 581 H (150-450) k/uL Neutrophils # 16.4 H (1.3-7.7) k/uL Monocytes # 1.2 H (0-1.0) k/uL Sodium 134 L (137-145) mmol/L Potassium 2.5 L* (3.5-5.1) mmol/L Chloride 94 L (98-107) mmol/L BUN (7-17) mg/dL Glucose 162 H (74-99) mg/dL POC Glucose (mg/dL) (75-99) mg/dL Plasma Lactic Acid Frederick 3.5 H* (0.7-2.0) mmol/L Magnesium (1.6-2.3) mg/dL Alkaline Phosphatase 141 H (38-126) U/L Total Protein 6.2 L (6.3-8.2) g/dL Ur Leukocyte Esterase (Negative) Urine Bacteria (None) /hpf 02/19/19 02/19/19 02/19/19 Range/Units 17:12 20:40 21:12 WBC (3.8-10.6) k/uL RBC (3.80-5.40) m/uL Hgb (11.4-16.0) gm/dL Hct (34.0-46.0) % MCHC (31.0-37.0) g/dL RDW (11.5-15.5) % Plt Count (150-450) k/uL Neutrophils # (1.3-7.7) k/uL Monocytes # (0-1.0) k/uL Sodium (137-145) mmol/L Potassium (3.5-5.1) mmol/L Chloride (98-107) mmol/L BUN (7-17) mg/dL Glucose (74-99) mg/dL POC Glucose (mg/dL) (75-99) mg/dL Plasma Lactic Acid Frederick 3.4 H* (0.7-2.0) mmol/L Magnesium 1.4 L (1.6-2.3) mg/dL Alkaline Phosphatase (38-126) U/L Total Protein (6.3-8.2) g/dL Ur Leukocyte Esterase Small H (Negative) Urine Bacteria Many H (None) /hpf 02/20/19 02/20/19 02/20/19 Range/Units 07:48 11:51 11:51 WBC 16.0 H (3.8-10.6) k/uL RBC 3.62 L (3.80-5.40) m/uL Hgb 9.2 L (11.4-16.0) gm/dL Hct 30.0 L (34.0-46.0) % MCHC 30.8 L (31.0-37.0) g/dL RDW 15.8 H (11.5-15.5) % Plt Count 546 H (150-450) k/uL Neutrophils # 13.3 H (1.3-7.7) k/uL Monocytes # (0-1.0) k/uL Sodium (137-145) mmol/L Potassium (3.5-5.1) mmol/L Chloride (98-107) mmol/L BUN 5 L (7-17) mg/dL Glucose 174 H (74-99) mg/dL POC Glucose (mg/dL) 162 H (75-99) mg/dL Plasma Lactic Acid Frederick (0.7-2.0) mmol/L Magnesium 1.5 L (1.6-2.3) mg/dL Alkaline Phosphatase (38-126) U/L Total Protein (6.3-8.2) g/dL Ur Leukocyte Esterase (Negative) Urine Bacteria (None) /hpf 02/20/19 Range/Units 12:03 WBC (3.8-10.6) k/uL RBC (3.80-5.40) m/uL Hgb (11.4-16.0) gm/dL Hct (34.0-46.0) % MCHC (31.0-37.0) g/dL RDW (11.5-15.5) % Plt Count (150-450) k/uL Neutrophils # (1.3-7.7) k/uL Monocytes # (0-1.0) k/uL Sodium (137-145) mmol/L Potassium (3.5-5.1) mmol/L Chloride (98-107) mmol/L BUN (7-17) mg/dL Glucose (74-99) mg/dL POC Glucose (mg/dL) 175 H (75-99) mg/dL Plasma Lactic Acid Frederick (0.7-2.0) mmol/L Magnesium (1.6-2.3) mg/dL Alkaline Phosphatase (38-126) U/L Total Protein (6.3-8.2) g/dL Ur Leukocyte Esterase (Negative) Urine Bacteria (None) /hpf Assessment and Plan Assessment: 1-patient presented to the hospital with abdominal pain and nausea and vomiting in this patient who did have recently extensive surgery for incisional hernia repair which was complicated by development of hematoma now with elevated white count and some fluid collection around the surgical site with a question of possible seroma underlying infected seroma not entirely excluded possibly related to enteric gram-negative pathogen as the patient did have a improvement in her white count with the addition of Zosyn Plan: 1-Zosyn 3.375 g every 8 hours 2-may benefit from aspirate of the fluid and send it for culture We will follow on clinical condition and cultures to further adjust medication if needed Thank you for this consultation will follow this patient with you Time with Patient: Greater than 30
[2019-02-21 11:31] LABS: Glucose,Whole Blood 166 mg/dL (75-99)
[2019-02-21] MEDS: AMIODARONE 100 MG TAB PO SCH (12:45)
--- NOTE | 2019-02-21 14:22 | P.PN ---
Subjective Progress Note Date: 02/21/19 CHIEF COMPLAINT: nausea and vomiting HISTORY OF PRESENT ILLNESS: Patient examined at the bedside with Dr. Montoya. Patient states she is feeling well today. Her abdominal pain is tolerable. Tolerating diet without nausea or vomiting. Passing flatus. WBC 13.3. Hemoglobin 8.4. PHYSICAL EXAM: VITAL SIGNS: Reviewed. GENERAL: Well-developed in no acute distress. HEENT: No sclera icterus. Extraocular movements grossly intact. Moist buccal mucosa. Head is atraumatic, normocephalic. ABDOMEN: Obese. Soft. Nondistended. Midline incision with andrei at distal end. MASTER with serosanguineous drainage. NEUROLOGIC: Alert and oriented. Cranial nerves II through XII grossly intact. ASSESSMENT: 1. Nausea and vomiting 2. Abdominal seroma, possible abscess 3. Leukocytosis 4. History of recent incisional hernia repair complicated by rectus sheath hemorrhage PLAN: 1. Diet as tolerated 2. Monitor output from MASTER drain 3. Continue IV antibiotics. Infectious disease following. Monitor WBC. 4. No surgical intervention recommended at this time Nurse practitioner note has been reviewed by physician. Signing provider agrees with the documented findings, assessment, and plan of care. Objective - Vital Signs Vital signs: Vital Signs Temp 98.2 F 02/21/19 07:00 Pulse 75 02/21/19 00:21 Resp 16 02/21/19 07:00 BP 93/58 02/21/19 07:00 Pulse Ox 97 02/21/19 07:00 Intake & Output 02/20/19 02/21/19 02/21/19 18:59 06:59 18:59 Intake Total 118 700 Output Total 20 Balance 98 700 Intake: IV 700 Piperacillin-Tazobactam 3 100 .375 gm In Sodium Chloride 0.9% 100 ml @ 25 mls/hr IVPB Q8HR [facility] Rx# :[id number] Sodium Chloride 0.9% 1, 600 000 ml @ 75 mls/hr IV . [id number] [facility] Rx#:[id number] Oral 118 Output: Drainage 20 Right Lower Abdomen 20 Other: Voiding Method Diaper Diaper # Voids 1 2 # Bowel Movements 1 - Labs CBC & Chem 7: 02/21/19 07:08 02/21/19 07:11 Labs: Abnormal Lab Results - Last 24 Hours (Table) 02/20/19 02/20/19 02/21/19 Range/Units 17:12 20:17 06:41 WBC (3.8-10.6) k/uL RBC (3.80-5.40) m/uL Hgb (11.4-16.0) gm/dL Hct (34.0-46.0) % MCHC (31.0-37.0) g/dL RDW (11.5-15.5) % Plt Count (150-450) k/uL Neutrophils # (1.3-7.7) k/uL Potassium (3.5-5.1) mmol/L BUN (7-17) mg/dL Glucose (74-99) mg/dL POC Glucose (mg/dL) 222 H 235 H 141 H (75-99) mg/dL 02/21/19 02/21/19 02/21/19 Range/Units 07:08 07:11 11:27 WBC 13.3 H (3.8-10.6) k/uL RBC 3.38 L (3.80-5.40) m/uL Hgb 8.4 L (11.4-16.0) gm/dL Hct 28.0 L (34.0-46.0) % MCHC 30.2 L (31.0-37.0) g/dL RDW 16.0 H (11.5-15.5) % Plt Count 497 H (150-450) k/uL Neutrophils # 10.2 H (1.3-7.7) k/uL Potassium 3.3 L (3.5-5.1) mmol/L BUN 4 L (7-17) mg/dL Glucose 133 H (74-99) mg/dL POC Glucose (mg/dL) 166 H (75-99) mg/dL Microbiology - Last 24 Hours (Table) 02/19/19 17:12 Blood Culture - Preliminary Blood No Growth after 24 hours
[2019-02-21 16:49] LABS: Glucose,Whole Blood 230 mg/dL (75-99)
--- NOTE | 2019-02-21 17:40 | PN ---
PROGRESS NOTE DATE OF SERVICE: 02/21/2019 REASON FOR FOLLOWUP: Leukocytosis and possible seroma versus infected seroma. INTERVAL HISTORY: The patient is currently afebrile. The patient is feeling slightly better. The patient denies having any further nausea. No vomiting. No chest pain, shortness of breath or cough. Still has slight diarrhea. No abdominal discomfort or any drainage from the abdominal incision. PHYSICAL EXAMINATION: Blood pressure is 94/60 with a pulse of 80, temperature of 98.1. She is 97% on room air. General description is an elderly female up in the chair in no distress. RESPIRATORY SYSTEM: Unlabored breathing. Clear to auscultation anteriorly. HEART: S1, S2. Regular rate and rhythm. ABDOMEN: Soft. Midline lower incision is currently not healed, but no drainage from it. EXTREMITIES: No edema of the feet. LABS: Hemoglobin 8.4, white count 13.3, BUN of 4, creatinine 0.66. DIAGNOSTIC IMPRESSION AND PLAN: Patient with leukocytosis in this patient who did have recent surgery for an incisional hernia repair complicated by postoperative bleed in the rectus sheath, now with a fluid collection with a question of hematoma versus infected hematoma. Will get a CT-guided drainage of the fluid. Fluid should be sent for Gram stain and culture. On empiric Zosyn; to continue, as the white count has shown a downward trend. Continue with supportive care. MMODL / IJN: [id number] /
[2019-02-21] MEDS: MORPHINE SULFATE 4 MG/ML SYRINGE IV PRN (18:25)
--- NOTE | 2019-02-21 19:56 | P.PN ---
Progress Note - Text Progress Note Date: 02/21/19 Chief Complaint: Nausea vomiting Interval history: This is a pleasant 73-year-old patient of Dr. Alcala. Chronic stable medical conditions include atrial fibrillation, coronary artery disease, diabetes, hyperlipidemia, hypertension, Randy arthritis, hypothyroid, peripheral arterial disease. Patient and December 2017 had a "coronary bypass for ischemic bowel resulting in the ostomy and a wound VAC. Patient subsequently had intra- abdominal abscess and required protracted course of antibiotics. Back in March 2018 had an abscess and patient did have a MASTER drain in place for the same. And December of this year patient had the incisional hernia with mesh placed. By Dr. Montoya. Patient does have significant bleeding from a MASTER drain. Continues to have a MASTER drain in place. Issue now presents with nausea vomiting for good 2 weeks. Unable to keep anything really down. Getting weak tired rundown. Barely able to do anything. He will at some loose stools yesterday. No obvious fever and chills. Does tired and rundown. Computed tomography scan did show some fluid collection at the operative site. Had elevated white count. Started on IV Zosyn. Admitted. Consultation was made to Dr. Lindsay Lancaster from ID. Admitted with suspected infection of the hernia site repair. Patient also has a MASTER drain. In May be noted that patient lives with her husbandin [place]. And comes to [place] for all medical care. Today-sitting up in a chair. Patient's brother and [id number] visiting. No vomiting. Does feel a bit tired. No fever no chills. Patient's been having about 25-50% of her meals today Review of systems: Was done for constitutional, cardiovascular, GI, pulmonary. relevant finding as above Active Medications Alprazolam (Xanax) 0.25 mg PO Q6HR PRN PRN Reason: Anxiety Amiodarone HCl (Cordarone) 100 mg PO AC-LUNCH [facility] Last Admin: 02/21/19 12:45 Dose: 100 mg Documented by: Amlodipine Besylate (Norvasc) 10 mg PO DAILY [facility] Last Admin: 02/21/19 07:42 Dose: Not Given Documented by: Atorvastatin Calcium (Lipitor) 40 mg PO HS [facility] Last Admin: 02/20/19 20:33 Dose: 40 mg Documented by: Cilostazol (Pletal) 100 mg PO DAILY [facility] Last Admin: 02/21/19 07:51 Dose: 100 mg Documented by: Duloxetine HCl (Cymbalta) 60 mg PO HS [facility] Last Admin: 02/20/19 20:31 Dose: 60 mg Documented by: Hydromorphone HCl (Dilaudid) 0.5 mg IVP Q3HR PRN PRN Reason: Moderate Pain Sodium Chloride (Saline 0.9%) 1,000 mls @ 75 mls/hr IV .[id number] [facility] Last Admin: 02/21/19 12:46 Dose: 75 mls/hr Documented by: Piperacillin Sod/Tazobactam (Sod 3.375 gm/ Sodium Chloride) 100 mls @ 25 mls/hr IVPB Q8HR [facility] Last Admin: 02/21/19 16:18 Dose: 25 mls/hr Documented by: Insulin Aspart (Novolog) 0 unit SQ ACHS [facility]; Protocol Last Admin: 02/21/19 17:31 Dose: 3 unit Documented by: Latanoprost (Xalatan 0.005%) 1 drops BOTH EYES [facility] Last Admin: 02/20/19 23:19 Dose: 1 drops Documented by: Levothyroxine Sodium (Synthroid) 88 mcg PO DAILY@0630 [facility] Last Admin: 02/21/19 05:21 Dose: 88 mcg Documented by: Losartan Potassium (Cozaar) 100 mg PO DAILY [facility] Last Admin: 02/21/19 07:43 Dose: Not Given Documented by: Metoprolol Tartrate (Lopressor) 50 mg PO BID [facility] Last Admin: 02/21/19 07:43 Dose: Not Given Documented by: Morphine Sulfate (Morphine Sulfate (Inj)) 4 mg IV Q4HR PRN PRN Reason: Severe Pain Last Admin: 02/21/19 18:25 Dose: 4 mg Documented by: Naloxone HCl (Narcan) 0.2 mg IV Q2M PRN PRN Reason: Opioid Reversal Ondansetron HCl (Zofran) 4 mg IVP Q8HR PRN PRN Reason: Nausea And Vomiting Oxycodone HCl (Oxycontin 20mg E.R.) 20 mg PO BID [facility] Last Admin: 02/21/19 07:51 Dose: 20 mg Documented by: Prednisone () 10 mg PO AC-LUNCH [facility] Last Admin: 02/21/19 07:52 Dose: 10 mg Documented by: Physical examination: VITAL SIGNS: 98.2, 16, 93% 58, 97% room air GENERAL: Sitting up in a chair, looking a bit better EYES: Pupils equal. Conjunctiva pale HEENT: External appearance of nose and ears normal, oral cavity grossly normal. NECK: JVD not raised; masses not palpable. HEART: First and second heart sounds are normal; some edema. LUNGS: Respiratory rate normal; decreased breath sounds. ABDOMEN: Soft, nontender, liver spleen not palpable, no masses palpable. MASTER drain with light blood-tinged drainage PSYCH: Alert and oriented x3; mood and affect normal. INVESTIGATIONS, reviewed in the clinical context: White count 13.3 hemoglobin 8.4 creatinine 0.66 Blood cultures-negative Previous testing White count 16 hemoglobin 9.2 platelets 546 potassium 3.9 bun 5 creatinine 0.64 Magnesium 1.5 EKG tracing normal sinus rhythm nonspecific T-wave changes Computed tomography scan abdomen-subcutaneous fluid over the anterior abdomen at the surgical site slightly increased compared to last exam, consistent with seroma. Assessment: -Persistent nausea vomiting for last 2 weeks, with poor oral intake leading to increased asthenia, nausea vomiting essential down -Seroma at the recent site of incisional hernia repair, could be infected given elevated white count -Coronary artery disease per prior history of bypass -Paroxysmal atrial fibrillation -Peripheral artery disease -Hypothyroid -Diabetes mellitus type 2 on oral hypoglycemic -Lumbar osteoarthritis -Hyperlipidemia -Essential hypertension -History of bowel perforation recurrent intra-abdominal abscess -Obesity BMI 32.8 Plan: Had a very lengthy talk with the patient Dr. Lancaster patient's brother and [id number]. Several questions were answered. It is not obvious at this point with infections at the seroma could be giving antibiotics empirically. Patient is definitely looking better with the fluids noted intake is improving. We'll see how she does.
[2019-02-21 20:04] LABS: Glucose,Whole Blood 197 mg/dL (75-99)
[2019-02-21] MEDS: ATORVASTATIN 40 MG TAB PO SCH (20:31)
[2019-02-21] MEDS: LATANOPROST 0.005% OPHTH DROPS 2.5 ML BTL BOTH EYES SCH (20:33)
[2019-02-21] MEDS: DULoxetine HCL 60 MG CAPSULE.DR PO SCH (20:33)
[2019-02-22] MEDS: SODIUM CHLORIDE 0.9% 1,000 ML IV SCH ×2 (03:13→12:42)
[2019-02-22] MEDS: LEVOTHYROXINE 88 MCG TAB PO SCH (05:45)
[2019-02-22 07:02] LABS: Glucose,Whole Blood 152 mg/dL (75-99)
[2019-02-22] MEDS: INSULIN ASPART (NovoLOG) 100 UNIT/ML VIAL SQ SCH ×4 (07:08→20:49)
[2019-02-22] MEDS: PIPERACILLIN-TAZOBACTAM 3.375 GM in SODIUM CHLORIDE 0.9% 100 ML IVPB SCH ×3 (07:08→22:47)
[2019-02-22] MEDS: METOPROLOL TARTRATE 50 MG TAB PO SCH ×2 (08:07→20:48)
[2019-02-22] MEDS: amLODIPine 10 MG TAB PO SCH (08:07)
[2019-02-22] MEDS: oxyCODONE ER 20 MG TAB.ER.12H PO SCH ×2 (08:07→20:46)
[2019-02-22] MEDS: CILOSTAZOL 100 MG TAB PO SCH (08:07)
[2019-02-22] MEDS: LOSARTAN 50 MG TAB PO SCH (08:07)
[2019-02-22 08:19] LABS: Basophils # (A) 0.1 k/uL (0-0.2); Basophils % (A) 1 %; Eosinophils # (A) 0.4 k/uL (0-0.7); Eosinophils % (A) 4 %; HGB 8.7 gm/dL (11.4-16.0); Hypochromasia Marked; Lymphocytes # (A) 1.8 k/uL (1.0-4.8); Lymphocytes % (A) 16 %; MCH 25.1 pg (25.0-35.0); MCV 83.5 fL (80.0-100.0); Mean Platelet Volume 5.7; Monocytes # (A) 0.7 k/uL (0-1.0); Monocytes % (A) 6 %; Neutrophils # (A) 7.8 k/uL (1.3-7.7); Neutrophils % (A) 72 %; Platelet Count 542 k/uL (150-450); RBC 3.48 m/uL (3.80-5.40); RDW 15.9 % (11.5-15.5)
[2019-02-22 08:28] LABS: African American GFR (CKD) >90 (>60 ml/min/1.73 sqM); Anion Gap 8 mmol/L; Blood Urea Nitrogen 4 mg/dL (7-17); Calcium 8.8 mg/dL (8.4-10.2); Carbon Dioxide 24 mmol/L (22-30); Chloride 108 mmol/L (98-107); Glucose 138 mg/dL (74-99); Magnesium 1.8 mg/dL (1.6-2.3); Potassium 3.5 mmol/L (3.5-5.1); Sodium 140 mmol/L (137-145)
[2019-02-22 11:55] LABS: Glucose,Whole Blood 162 mg/dL (75-99)
[2019-02-22] MEDS: AMIODARONE 100 MG TAB PO SCH (12:35)
[2019-02-22] MEDS: predniSONE 10 MG TAB PO SCH (12:35)
--- NOTE | 2019-02-22 15:30 | P.PN ---
Subjective Progress Note Date: 02/22/19 CHIEF COMPLAINT: nausea and vomiting HISTORY OF PRESENT ILLNESS: Patient examined at the bedside with Dr. Montoya. Patient states she is feeling well today. Her abdominal pain is tolerable. Tolerating diet without nausea or vomiting. MASTER with serosanguineous drainage. WBC 11 today. Afebrile. PHYSICAL EXAM: VITAL SIGNS: Reviewed. GENERAL: Well-developed in no acute distress. HEENT: No sclera icterus. Extraocular movements grossly intact. Moist buccal mucosa. Head is atraumatic, normocephalic. ABDOMEN: Obese. Soft. Nondistended. Midline incision with andrei at distal end. MASTER with serosanguineous drainage. NEUROLOGIC: Alert and oriented. Cranial nerves II through XII grossly intact. ASSESSMENT: 1. Nausea and vomiting 2. Abdominal seroma, possible abscess 3. Leukocytosis 4. History of recent incisional hernia repair complicated by rectus sheath hemorrhage PLAN: 1. Diet as tolerated 2. Monitor output from MASTER drain 3. Continue IV antibiotics. Infectious disease following. Monitor WBC. 4. Obtain Midline IV due to poor IV access 5. IR reviewed CT. No abscess to drain at this time. 6. No surgical intervention recommended at this time unless patients condition declines 7. Patient will require NIGEL at discharge for IV antibiotics Nurse practitioner note has been reviewed by physician. Signing provider agrees with the documented findings, assessment, and plan of care. Objective - Vital Signs Vital signs: Vital Signs Temp 98.8 F 02/22/19 15:00 Pulse 75 02/22/19 15:00 Resp 18 02/22/19 15:00 BP 104/66 02/22/19 15:00 Pulse Ox 99 02/22/19 15:00 Intake & Output 02/21/19 02/22/19 02/22/19 18:59 06:59 18:59 Intake Total 700 Output Total 90 30 Balance 700 -90 -30 Intake: IV 700 Piperacillin-Tazobactam 3 100 .375 gm In Sodium Chloride 0.9% 100 ml @ 25 mls/hr IVPB Q8HR [facility] Rx# :[id number] Sodium Chloride 0.9% 1, 600 000 ml @ 75 mls/hr IV . [id number] [facility] Rx#:[id number] Output: Drainage 90 30 Right Lower Abdomen 90 30 Other: Voiding Method Toilet Diaper # Voids 2 3 3 # Bowel Movements 1 - Labs CBC & Chem 7: 02/22/19 07:16 02/22/19 07:16 Labs: Abnormal Lab Results - Last 24 Hours (Table) 02/21/19 02/21/19 02/22/19 Range/Units 16:38 19:51 06:51 WBC (3.8-10.6) k/uL RBC (3.80-5.40) m/uL Hgb (11.4-16.0) gm/dL Hct (34.0-46.0) % MCHC (31.0-37.0) g/dL RDW (11.5-15.5) % Plt Count (150-450) k/uL Neutrophils # (1.3-7.7) k/uL Chloride (98-107) mmol/L BUN (7-17) mg/dL Glucose (74-99) mg/dL POC Glucose (mg/dL) 230 H 197 H 152 H (75-99) mg/dL 02/22/19 02/22/19 02/22/19 Range/Units 07:16 07:16 11:43 WBC 11.0 H (3.8-10.6) k/uL RBC 3.48 L (3.80-5.40) m/uL Hgb 8.7 L (11.4-16.0) gm/dL Hct 29.0 L (34.0-46.0) % MCHC 30.0 L (31.0-37.0) g/dL RDW 15.9 H (11.5-15.5) % Plt Count 542 H (150-450) k/uL Neutrophils # 7.8 H (1.3-7.7) k/uL Chloride 108 H (98-107) mmol/L BUN 4 L (7-17) mg/dL Glucose 138 H (74-99) mg/dL POC Glucose (mg/dL) 162 H (75-99) mg/dL Microbiology - Last 24 Hours (Table) 02/19/19 17:12 Blood Culture - Preliminary Blood No Growth after 48 hours
[2019-02-22 16:53] LABS: Glucose,Whole Blood 281 mg/dL (75-99)
[2019-02-22] MEDS: MORPHINE SULFATE 4 MG/ML SYRINGE IV PRN ×2 (17:08→22:43)
--- NOTE | 2019-02-22 17:25 | PN ---
PROGRESS NOTE DATE OF SERVICE: 02/22/2019. REASON FOR FOLLOWUP: Abdominal infection. INTERVAL HISTORY: The patient is currently afebrile. Patient is breathing comfortably. Denies having any chest pain. No shortness of breath. No cough. Her abdominal pain is currently improved. No nausea, vomiting and diarrhea has slowed. PHYSICAL EXAMINATION: Blood pressure 104/56, pulse 75. Temperature 98.8. She is 99% on room air. General description is an elderly female lying in bed in no distress. Respiratory system: Unlabored breathing. Clear to auscultation anteriorly. Heart is S1, S2. Regular rate and rhythm. ABDOMEN: Soft, no tenderness. Extremities: No edema of the feet. LABS: Hemoglobin 8.1, white count of 11,000, BUN of 4, creatinine 0.60. DIAGNOSTIC IMPRESSION AND PLAN: Patient admitted to the hospital with nausea, vomiting, abdominal pain in this patient who did have elevated white count. The patient did have a CT abdomen and pelvis which has been reviewed with Dr. Mckeon today. Overall, fluid has decreased and there is no drainable abscess. Patient to continue Zosyn in view of clinical response to it. Recommending at least 2 weeks of IV antibiotic therapy for which the patient will get a midline. Continue supportive care. Plan of care discussed with admitting physician as well. MMODL / IJN: [id number] /
[2019-02-22 18:36] LABS: Hemoglobin A1C 6.7 % (4.0-6.0)
[2019-02-22 20:36] LABS: Glucose,Whole Blood 284 mg/dL (75-99)
[2019-02-22] MEDS: DULoxetine HCL 60 MG CAPSULE.DR PO SCH (20:48)
[2019-02-22] MEDS: ATORVASTATIN 40 MG TAB PO SCH (20:48)
--- NOTE | 2019-02-22 20:58 | P.PN ---
Progress Note - Text Progress Note Date: 02/22/19 Chief Complaint: Nausea vomiting Interval history: This is a pleasant 73-year-old patient of Dr. Alcala. Chronic stable medical conditions include atrial fibrillation, coronary artery disease, diabetes, hyperlipidemia, hypertension, Randy arthritis, hypothyroid, peripheral arterial disease. Patient and December 2017 had a "coronary bypass for ischemic bowel resulting in the ostomy and a wound VAC. Patient subsequently had intra- abdominal abscess and required protracted course of antibiotics. Back in March 2018 had an abscess and patient did have a MASTER drain in place for the same. And December of this year patient had the incisional hernia with mesh placed. By Dr. Montoya. Patient does have significant bleeding from a MASTER drain. Continues to have a MASTER drain in place. Issue now presents with nausea vomiting for good 2 weeks. Unable to keep anything really down. Getting weak tired rundown. Barely able to do anything. He will at some loose stools yesterday. No obvious fever and chills. Does tired and rundown. Computed tomography scan did show some fluid collection at the operative site. Had elevated white count. Started on IV Zosyn. Admitted. Consultation was made to Dr. Lindsay Lancaster from ID. Admitted with suspected infection of the hernia site repair. Patient also has a MASTER drain. In May be noted that patient lives with her in [place]. And comes to [place] for all medical care. Today-sitting up in a chair. Feeling better. Some light red drainage through tube MASTER drain. No nausea vomiting. Patient been eating most of her meals.. Brother and [id number] visiting. Overall feels better. Her nausea vomiting. No fever no chills. Review of systems: Was done for constitutional, cardiovascular, GI, pulmonary. relevant finding as above Active Medications Alprazolam (Xanax) 0.25 mg PO Q6HR PRN PRN Reason: Anxiety Amiodarone HCl (Cordarone) 100 mg PO AC-LUNCH [facility] Last Admin: 02/22/19 12:35 Dose: 100 mg Documented by: Amlodipine Besylate (Norvasc) 10 mg PO DAILY [facility] Last Admin: 02/22/19 08:07 Dose: 10 mg Documented by: Atorvastatin Calcium (Lipitor) 40 mg PO HS [facility] Last Admin: 02/22/19 20:48 Dose: 40 mg Documented by: Cilostazol (Pletal) 100 mg PO DAILY [facility] Last Admin: 02/22/19 08:07 Dose: 100 mg Documented by: Duloxetine HCl (Cymbalta) 60 mg PO [facility] Last Admin: 02/22/19 20:48 Dose: 60 mg Documented by: Hydromorphone HCl (Dilaudid) 0.5 mg IVP Q3HR PRN PRN Reason: Moderate Pain Sodium Chloride (Saline 0.9%) 1,000 mls @ 75 mls/hr IV .[id number] [facility] Last Admin: 02/22/19 12:42 Dose: Not Given Documented by: Piperacillin Sod/Tazobactam (Sod 3.375 gm/ Sodium Chloride) 100 mls @ 25 mls/hr IVPB Q8HR [facility] Last Admin: 02/22/19 16:24 Dose: 25 mls/hr Documented by: Insulin Aspart (Novolog) 0 unit SQ MERGED WITH [facility]; Protocol Last Admin: 02/22/19 20:49 Dose: 4 unit Documented by: Latanoprost (Xalatan 0.005%) 1 drops BOTH EYES [facility] Last Admin: 02/21/19 20:33 Dose: 1 drops Documented by: Levothyroxine Sodium (Synthroid) 88 mcg PO DAILY@0630 [facility] Last Admin: 02/22/19 05:45 Dose: 88 mcg Documented by: Losartan Potassium (Cozaar) 100 mg PO DAILY [facility] Last Admin: 02/22/19 08:07 Dose: 100 mg Documented by: Metoprolol Tartrate (Lopressor) 50 mg PO BID [facility] Last Admin: 02/22/19 20:48 Dose: 50 mg Documented by: Morphine Sulfate (Morphine Sulfate (Inj)) 4 mg IV Q4HR PRN PRN Reason: Severe Pain Last Admin: 02/22/19 17:08 Dose: 4 mg Documented by: Naloxone HCl (Narcan) 0.2 mg IV Q2M PRN PRN Reason: Opioid Reversal Ondansetron HCl (Zofran) 4 mg IVP Q8HR PRN PRN Reason: Nausea And Vomiting Oxycodone HCl (Oxycontin 20mg E.R.) 20 mg PO BID [facility] Last Admin: 02/22/19 20:46 Dose: 20 mg Documented by: Pantoprazole Sodium (Protonix) 40 mg PO AC-BRKFST [facility] Prednisone () 10 mg PO AC-LUNCH [facility] Last Admin: 02/22/19 12:35 Dose: 10 mg Documented by: Physical examination: VITAL SIGNS: Afebrile, 75, 18, 104/66, 99% room air GENERAL: Sitting up in a chair, more comfortable EYES: Pupils equal. Conjunctiva pale HEENT: External appearance of nose and ears normal, oral cavity grossly normal. NECK: JVD not raised; masses not palpable. HEART: First and second heart sounds are normal; some edema. LUNGS: Respiratory rate normal; decreased breath sounds. ABDOMEN: Soft, nontender, liver spleen not palpable, no masses palpable. MASTER drain with light blood-tinged drainage PSYCH: Alert and oriented x3; mood and affect normal. INVESTIGATIONS, reviewed in the clinical context: White count 11 hemoglobin 8.7 platelets 542 potassium 3.514 creatinine 0.60 Previous testing Blood cultures-negative White count 16 hemoglobin 9.2 platelets 546 potassium 3.9 bun 5 creatinine 0.64 Magnesium 1.5 EKG tracing normal sinus rhythm nonspecific T-wave changes Computed tomography scan abdomen-subcutaneous fluid over the anterior abdomen at the surgical site slightly increased compared to last exam, consistent with seroma. Assessment: -Persistent nausea vomiting for last 2 weeks, with poor oral intake leading to increased asthenia, nausea vomiting now much improved. -Seroma at the recent site of incisional hernia repair, could be infected given elevated white count -Coronary artery disease per prior history of bypass -Paroxysmal atrial fibrillation -Peripheral artery disease -Hypothyroid -Diabetes mellitus type 2 on oral hypoglycemic -Lumbar osteoarthritis -Hyperlipidemia -Essential hypertension -History of bowel perforation recurrent intra-abdominal abscess -Obesity BMI 32.8 Plan: Patient is overall much improved. Is able to eat most of abuse. No fever no chills. Looking better. White count is coming down. Discussed with Dr. Monahan. We'll get 2 weeks of antibiotics. He is putting a PICC line. Talked to the patient and the family at length. Questions regarding intra-abdominal drain have been deferred to Dr. Montoya.
[2019-02-22] MEDS: LATANOPROST 0.005% OPHTH DROPS 2.5 ML BTL BOTH EYES SCH (20:59)
[2019-02-22] MEDS ORDERED: diphenhydrAMINE 25 MG CAP PO STA (23:19)
[2019-02-23] MEDS: LEVOTHYROXINE 88 MCG TAB PO SCH (05:00)
[2019-02-23] MEDS: SODIUM CHLORIDE 0.9% 1,000 ML IV SCH ×2 (05:00→15:55)
[2019-02-23 07:13] LABS: Glucose,Whole Blood 130 mg/dL (75-99)
[2019-02-23] MEDS: INSULIN ASPART (NovoLOG) 100 UNIT/ML VIAL SQ SCH ×4 (07:21→20:18)
[2019-02-23] MEDS: PANTOPRAZOLE 40 MG TABLET PO SCH (07:28)
[2019-02-23 07:47] LABS: Basophils # (A) 0.1 k/uL (0-0.2); Basophils % (A) 1 %; Eosinophils # (A) 0.4 k/uL (0-0.7); Eosinophils % (A) 4 %; HCT 30.8 % (34.0-46.0); HGB 9.4 gm/dL (11.4-16.0); Hypochromasia Marked; Lymphocytes # (A) 1.9 k/uL (1.0-4.8); Lymphocytes % (A) 20 %; MCH 25.2 pg (25.0-35.0); MCHC 30.7 g/dL (31.0-37.0); MCV 82.2 fL (80.0-100.0); Mean Platelet Volume 5.4; Monocytes # (A) 0.6 k/uL (0-1.0); Monocytes % (A) 6 %; Neutrophils # (A) 6.7 k/uL (1.3-7.7); Neutrophils % (A) 68 %; Platelet Count 592 k/uL (150-450); Poikilocytosis Slight; RBC 3.74 m/uL (3.80-5.40); RDW 15.9 % (11.5-15.5); WBC 9.9 k/uL (3.8-10.6)
[2019-02-23] MEDS: METOPROLOL TARTRATE 50 MG TAB PO SCH ×2 (08:27→20:18)
[2019-02-23] MEDS: LOSARTAN 50 MG TAB PO SCH (08:27)
[2019-02-23] MEDS: oxyCODONE ER 20 MG TAB.ER.12H PO SCH ×2 (08:27→20:19)
[2019-02-23] MEDS: CILOSTAZOL 100 MG TAB PO SCH (08:27)
[2019-02-23] MEDS: amLODIPine 10 MG TAB PO SCH (08:27)
[2019-02-23] MEDS: PIPERACILLIN-TAZOBACTAM 3.375 GM in SODIUM CHLORIDE 0.9% 100 ML IVPB SCH ×3 (10:20→23:30)
--- NOTE | 2019-02-23 11:26 | P.PN ---
Subjective Progress Note Date: 02/23/19 Principal diagnosis: Surgical site infection Patient doing well today. Mild abdominal discomfort. White blood cell count normal at 9.9. She is afebrile. She is tolerating her diet. Objective - Vital Signs Vital signs: Vital Signs Temp 98.1 F 02/23/19 07:00 Pulse 69 02/23/19 07:00 Resp 16 02/23/19 07:00 BP 143/78 02/23/19 07:00 Pulse Ox 100 02/23/19 07:00 Intake & Output 02/22/19 02/23/19 02/23/19 18:59 06:59 18:59 Intake Total 222 500 Output Total 70 30 Balance 152 470 Intake: Oral 222 500 Output: Drainage 70 30 Right Lower Abdomen 70 30 Other: Voiding Method Toilet Diaper # Voids 3 1 - Exam Abdomen: Soft, nondistended, mild tenderness, 2 small areas of superficial incision dehiscence one measuring less than 1 cm, one measuring 2 x 2 centimeters, neither draining, remainder of andrei removed - Labs CBC & Chem 7: 02/23/19 07:26 02/22/19 07:16 Labs: Abnormal Lab Results - Last 24 Hours (Table) 02/22/19 02/22/19 02/22/19 Range/Units 07:16 11:43 16:39 RBC (3.80-5.40) m/uL Hgb (11.4-16.0) gm/dL Hct (34.0-46.0) % MCHC (31.0-37.0) g/dL RDW (11.5-15.5) % Plt Count (150-450) k/uL POC Glucose (mg/dL) 162 H 281 H (75-99) mg/dL Hemoglobin A1c 6.7 H (4.0-6.0) % 02/22/19 02/23/19 02/23/19 Range/Units 20:34 07:10 07:26 RBC 3.74 L (3.80-5.40) m/uL Hgb 9.4 L (11.4-16.0) gm/dL Hct 30.8 L (34.0-46.0) % MCHC 30.7 L (31.0-37.0) g/dL RDW 15.9 H (11.5-15.5) % Plt Count 592 H (150-450) k/uL POC Glucose (mg/dL) 284 H 130 H (75-99) mg/dL Hemoglobin A1c (4.0-6.0) % Microbiology - Last 24 Hours (Table) 02/19/19 17:12 Blood Culture - Preliminary Blood No Growth after 72 hours Assessment and Plan (1) Abdominal abscess Narrative/Plan: Patient doing fairly well at this time. Continue with plans for antibiotic therapy. Keep drain for now. Will follow. Current Visit: No Status: Acute Code(s): [id number] - SNOMED Code(s): 71635805
[2019-02-23 11:46] LABS: Glucose,Whole Blood 178 mg/dL (75-99)
[2019-02-23 12:52] LABS: Glucose,Whole Blood 165 mg/dL (75-99)
[2019-02-23] MEDS: predniSONE 10 MG TAB PO SCH (13:27)
[2019-02-23] MEDS: AMIODARONE 100 MG TAB PO SCH (13:27)
--- NOTE | 2019-02-23 14:34 | P.PN ---
Subjective 73-year-old with a previous history of abdominal wall surgeries admitted for abdominal wall infection. Patient there was a concern about infection in the left PICC site area which are examined and there is no evidence of cellulitis in that area. Patient is on Zosyn. Patient does have right upper quadrant MASTER drain in place. Patient is awaiting disposition to subacute rehabilitation Constitutional: Denied any fatigue denied any fever. Cardio vascular: denied any chest pain, palpitations Gastrointestinal denied any nausea vomiting Pulmonary: Denied any shortness of breath cough Neurologic denied any new focal deficits All inpatient medications were reviewed and appropriate changes in these medications as dictated in the interval history and assessment and plan. Objective - Vital Signs Vital signs: Vital Signs Temp 98.1 F 02/23/19 07:00 Pulse 69 02/23/19 07:00 Resp 16 02/23/19 07:00 BP 143/78 02/23/19 07:00 Pulse Ox 100 02/23/19 07:00 Intake & Output 02/22/19 02/23/19 02/23/19 18:59 06:59 18:59 Intake Total 222 500 Output Total 70 30 Balance 152 470 Intake: Oral 222 500 Output: Drainage 70 30 Right Lower Abdomen 70 30 Other: Voiding Method Toilet Diaper # Voids 3 1 - Exam PHYSICAL EXAMINATION: GENERAL: The patient is alert and oriented x3, not in any acute distress. Well developed, well nourished. HEENT: Pupils are round and equally reacting to light. EOMI. No scleral icterus. No conjunctival pallor. Normocephalic, atraumatic. No pharyngeal erythema. No thyromegaly. CARDIOVASCULAR: S1 and S2 present. No murmurs, rubs, or gallops. PULMONARY: Chest is clear to auscultation, no wheezing or crackles. ABDOMEN: Soft, nontender, nondistended, normoactive bowel sounds. No palpable organomegaly. Right upper quadrant abdominal wall draining MUSCULOSKELETAL: No joint swelling or deformity. EXTREMITIES: No cyanosis, clubbing, or pedal edema. NEUROLOGICAL: Gross neurological examination did not reveal any focal deficits. SKIN: No rashes. - Labs CBC & Chem 7: 02/23/19 07:26 02/22/19 07:16 Labs: Abnormal Lab Results - Last 24 Hours (Table) 02/22/19 02/22/19 02/22/19 Range/Units 07:16 16:39 20:34 RBC (3.80-5.40) m/uL Hgb (11.4-16.0) gm/dL Hct (34.0-46.0) % MCHC (31.0-37.0) g/dL RDW (11.5-15.5) % Plt Count (150-450) k/uL POC Glucose (mg/dL) 281 H 284 H (75-99) mg/dL Hemoglobin A1c 6.7 H (4.0-6.0) % 02/23/19 02/23/19 02/23/19 Range/Units 07:10 07:26 11:44 RBC 3.74 L (3.80-5.40) m/uL Hgb 9.4 L (11.4-16.0) gm/dL Hct 30.8 L (34.0-46.0) % MCHC 30.7 L (31.0-37.0) g/dL RDW 15.9 H (11.5-15.5) % Plt Count 592 H (150-450) k/uL POC Glucose (mg/dL) 130 H 178 H (75-99) mg/dL Hemoglobin A1c (4.0-6.0) % 02/23/19 Range/Units 12:39 RBC (3.80-5.40) m/uL Hgb (11.4-16.0) gm/dL Hct (34.0-46.0) % MCHC (31.0-37.0) g/dL RDW (11.5-15.5) % Plt Count (150-450) k/uL POC Glucose (mg/dL) 165 H (75-99) mg/dL Hemoglobin A1c (4.0-6.0) % Microbiology - Last 24 Hours (Table) 02/19/19 17:12 Blood Culture - Preliminary Blood No Growth after 72 hours Assessment and Plan Plan: Sepsis secondary to syndrome of or infection of the incisional hernia repair site. Patient is Zosyn which will be continued infectious disease evaluated the patient Non-nausea vomiting probably related to sepsis -Coronary artery disease Kaylen-proximal A. fib presently rate controlled 10 peripheral artery disease -Hypothyroidism -Type 2 diabetes mellitus -Hyperlipidemia -Essential hypertension patient had a recent bowel perforation and intra- abdominal abscess -Obesity For above-mentioned chronic medical problems patient will be resumed and continued on appropriate home medications patient will be discharged to subacute rehabilitation on Monday antibiotic recommendations as per infectious disease
[2019-02-23 16:41] LABS: Glucose,Whole Blood 198 mg/dL (75-99)
--- NOTE | 2019-02-23 17:58 | PN ---
PROGRESS NOTE DATE OF SERVICE: 02/23/2019 REASON FOR FOLLOWUP: Abdominal infection. INTERVAL HISTORY: The patient is currently afebrile. Patient is breathing comfortably. Denies having any chest pain. No shortness of breath or cough. No nausea, vomiting, abdominal pain. Diarrhea has improved. PHYSICAL EXAMINATION: Blood pressure 119/74 with a pulse of 60, temperature 98.7. She is 99% on room air. General description is an elderly female, lying in bed in no distress. Respiratory system: Unlabored breathing and is clear to auscultation anteriorly. Heart S1, S2. Regular rate and rhythm. Abdomen soft, no tenderness. Extremities, no edema of the feet. LABS: Hemoglobin is 9.4, white count 9.9. DIAGNOSTIC IMPRESSION AND PLAN: Patient with leukocytosis with evidence of underlying abdominal infection. The patient clinically responding to Zosyn. Recommend to continue the patient on Zosyn for at least 2 weeks per the med line with a repeat CT scan at that point. Questions and concerns were answered. MMODL / IJN: [id number] /
[2019-02-23 20:14] LABS: Glucose,Whole Blood 289 mg/dL (75-99)
[2019-02-23] MEDS: DULoxetine HCL 60 MG CAPSULE.DR PO SCH (20:18)
[2019-02-23] MEDS: ATORVASTATIN 40 MG TAB PO SCH (20:18)
[2019-02-23] MEDS: LATANOPROST 0.005% OPHTH DROPS 2.5 ML BTL BOTH EYES SCH (20:19)
[2019-02-24] MEDS: LEVOTHYROXINE 88 MCG TAB PO SCH (05:54)
[2019-02-24 06:58] LABS: Glucose,Whole Blood 121 mg/dL (75-99)
[2019-02-24 07:23] LABS: Basophils # (A) 0.1 k/uL (0-0.2); Basophils % (A) 1 %; Eosinophils # (A) 0.2 k/uL (0-0.7); Eosinophils % (A) 2 %; HCT 30.7 % (34.0-46.0); HGB 9.2 gm/dL (11.4-16.0); Hypochromasia Marked; Lymphocytes # (A) 1.9 k/uL (1.0-4.8); Lymphocytes % (A) 19 %; MCH 24.8 pg (25.0-35.0); MCHC 29.8 g/dL (31.0-37.0); MCV 83.2 fL (80.0-100.0); Mean Platelet Volume 5.6; Monocytes # (A) 0.6 k/uL (0-1.0); Monocytes % (A) 6 %; Neutrophils # (A) 6.9 k/uL (1.3-7.7); Neutrophils % (A) 70 %; Platelet Count 556 k/uL (150-450); RBC 3.69 m/uL (3.80-5.40); RDW 15.9 % (11.5-15.5); WBC 9.9 k/uL (3.8-10.6)
[2019-02-24] MEDS: SODIUM CHLORIDE 0.9% 1,000 ML IV SCH ×2 (07:43→22:21)
[2019-02-24] MEDS: INSULIN ASPART (NovoLOG) 100 UNIT/ML VIAL SQ SCH ×4 (07:43→20:25)
[2019-02-24] MEDS: amLODIPine 10 MG TAB PO SCH (07:55)
[2019-02-24] MEDS: PIPERACILLIN-TAZOBACTAM 3.375 GM in SODIUM CHLORIDE 0.9% 100 ML IVPB SCH ×3 (07:55→23:42)
[2019-02-24] MEDS: LOSARTAN 50 MG TAB PO SCH (07:56)
[2019-02-24] MEDS: METOPROLOL TARTRATE 50 MG TAB PO SCH ×2 (07:56→20:34)
[2019-02-24] MEDS: CILOSTAZOL 100 MG TAB PO SCH (07:56)
[2019-02-24] MEDS: oxyCODONE ER 20 MG TAB.ER.12H PO SCH ×2 (07:57→20:25)
[2019-02-24] MEDS: PANTOPRAZOLE 40 MG TABLET PO SCH (07:57)
[2019-02-24 11:26] LABS: Glucose,Whole Blood 200 mg/dL (75-99)
[2019-02-24] MEDS: predniSONE 10 MG TAB PO SCH (11:31)
[2019-02-24] MEDS: AMIODARONE 100 MG TAB PO SCH (11:31)
--- NOTE | 2019-02-24 12:04 | P.PN ---
Subjective Progress Note Date: 02/24/19 Principal diagnosis: Surgical site infection Patient feels well today. Denies pain at this time. MASTER drain serosanguineous at this time. She is afebrile. Objective - Vital Signs Vital signs: Vital Signs Temp 98.1 F 02/24/19 07:00 Pulse 64 02/24/19 07:00 Resp 17 02/24/19 07:00 BP 135/82 02/24/19 07:00 Pulse Ox 98 02/24/19 07:00 Intake & Output 02/23/19 02/24/19 02/24/19 18:59 06:59 18:59 Output Total 70 30 Balance -70 -30 Output: Drainage 70 30 Right Lower Abdomen 70 30 Other: Voiding Method Toilet Diaper # Voids 2 1 1 - Exam Abdomen: Soft, nondistended, incision clean with 2 small wounds that are nondraining - Labs CBC & Chem 7: 02/24/19 07:06 02/22/19 07:16 Labs: Abnormal Lab Results - Last 24 Hours (Table) 02/23/19 02/23/19 02/23/19 Range/Units 12:39 16:35 20:03 RBC (3.80-5.40) m/uL Hgb (11.4-16.0) gm/dL Hct (34.0-46.0) % MCH (25.0-35.0) pg MCHC (31.0-37.0) g/dL RDW (11.5-15.5) % Plt Count (150-450) k/uL POC Glucose (mg/dL) 165 H 198 H 289 H (75-99) mg/dL 02/24/19 02/24/19 02/24/19 Range/Units 06:55 07:06 11:24 RBC 3.69 L (3.80-5.40) m/uL Hgb 9.2 L (11.4-16.0) gm/dL Hct 30.7 L (34.0-46.0) % MCH 24.8 L (25.0-35.0) pg MCHC 29.8 L (31.0-37.0) g/dL RDW 15.9 H (11.5-15.5) % Plt Count 556 H (150-450) k/uL POC Glucose (mg/dL) 121 H 200 H (75-99) mg/dL Microbiology - Last 24 Hours (Table) 02/19/19 17:12 Blood Culture - Preliminary Blood No Growth after 96 hours Assessment and Plan (1) Abdominal abscess Narrative/Plan: Continue antibiotics per infectious disease. Possible transfer to rehab on IV antibiotics. Current Visit: No Status: Acute Code(s): [id number] - SNOMED Code(s): 56321 008
--- NOTE | 2019-02-24 13:02 | P.PN ---
Subjective 73-year-old with a previous history of abdominal wall surgeries admitted for abdominal wall infection. Patient there was a concern about infection in the left PICC site area which are examined and there is no evidence of cellulitis in that area. Patient is on Zosyn. Patient does have right upper quadrant MASTER drain in place. Patient is awaiting disposition to subacute rehabilitation 06/27/2018 No overnight events Constitutional: Denied any fatigue denied any fever. Cardio vascular: denied any chest pain, palpitations Gastrointestinal denied any nausea vomiting Pulmonary: Denied any shortness of breath cough Neurologic denied any new focal deficits All inpatient medications were reviewed and appropriate changes in these medications as dictated in the interval history and assessment and plan. Objective - Vital Signs Vital signs: Vital Signs Temp 98.1 F 02/24/19 07:00 Pulse 64 02/24/19 07:00 Resp 17 02/24/19 07:00 BP 135/82 02/24/19 07:00 Pulse Ox 98 02/24/19 07:00 Intake & Output 02/23/19 02/24/19 02/24/19 18:59 06:59 18:59 Output Total 70 30 Balance -70 -30 Output: Drainage 70 30 Right Lower Abdomen 70 30 Other: Voiding Method Toilet Diaper # Voids 2 1 1 - Exam PHYSICAL EXAMINATION: GENERAL: The patient is alert and oriented x3, not in any acute distress. Well developed, well nourished. HEENT: Pupils are round and equally reacting to light. EOMI. No scleral icterus. No conjunctival pallor. Normocephalic, atraumatic. No pharyngeal erythema. No thyromegaly. CARDIOVASCULAR: S1 and S2 present. No murmurs, rubs, or gallops. PULMONARY: Chest is clear to auscultation, no wheezing or crackles. ABDOMEN: Soft, nontender, nondistended, normoactive bowel sounds. No palpable organomegaly. Right upper quadrant abdominal wall draining MUSCULOSKELETAL: No joint swelling or deformity. EXTREMITIES: No cyanosis, clubbing, or pedal edema. NEUROLOGICAL: Gross neurological examination did not reveal any focal deficits. SKIN: No rashes. - Labs CBC & Chem 7: 02/24/19 07:06 02/22/19 07:16 Labs: Abnormal Lab Results - Last 24 Hours (Table) 02/23/19 02/23/19 02/24/19 Range/Units 16:35 20:03 06:55 RBC (3.80-5.40) m/uL Hgb (11.4-16.0) gm/dL Hct (34.0-46.0) % MCH (25.0-35.0) pg MCHC (31.0-37.0) g/dL RDW (11.5-15.5) % Plt Count (150-450) k/uL POC Glucose (mg/dL) 198 H 289 H 121 H (75-99) mg/dL 02/24/19 02/24/19 Range/Units 07:06 11:24 RBC 3.69 L (3.80-5.40) m/uL Hgb 9.2 L (11.4-16.0) gm/dL Hct 30.7 L (34.0-46.0) % MCH 24.8 L (25.0-35.0) pg MCHC 29.8 L (31.0-37.0) g/dL RDW 15.9 H (11.5-15.5) % Plt Count 556 H (150-450) k/uL POC Glucose (mg/dL) 200 H (75-99) mg/dL Microbiology - Last 24 Hours (Table) 02/19/19 17:12 Blood Culture - Preliminary Blood No Growth after 96 hours Assessment and Plan Plan: Sepsis secondary to syndrome of or infection of the incisional hernia repair site. Patient is Zosyn which will be continued infectious disease evaluated the patientwill be discharged to subacute rehabilitation tomorrow Non-nausea vomiting probably related to sepsis -Coronary artery disease Kaylen-proximal A. fib presently rate controlled 10 peripheral artery disease -Hypothyroidism -Type 2 diabetes mellitus -Hyperlipidemia -Essential hypertension patient had a recent bowel perforation and intra- abdominal abscess -Obesity For above-mentioned chronic medical problems patient will be resumed and continued on appropriate home medications patient will be discharged to subacute rehabilitation on Monday antibiotic recommendations as per infectious disease
[2019-02-24 16:49] LABS: Glucose,Whole Blood 262 mg/dL (75-99)
--- NOTE | 2019-02-24 18:08 | PN ---
PROGRESS NOTE DATE OF SERVICE: 02/24/2019. REASON FOR FOLLOWUP: Infected abdominal seroma. INTERVAL HISTORY: The patient is currently afebrile. Patient overall is feeling better. Denies having any chest pain, shortness of breath or cough. No abdominal pain and her diarrhea has resolved. EXAMINATION: Blood pressure is 123/80 with a pulse of 63. Temperature 99.6. She is 99% on room air. General description is an elderly female up in the bed in no distress. Respiratory system: Unlabored breathing. Clear to auscultation anteriorly. Heart S1, S2. Regular rate and rhythm. ABDOMEN: Soft, no tenderness. EXTREMITIES: No edema of the feet. LABS: Hemoglobin 9.8, white count 9.9. DIAGNOSTIC IMPRESSION AND PLAN: Patient admitted to the hospital with abdominal pain, leukocytosis, concern for possible infected abdominal seroma. Patient clinically responding to Zosyn and white count has normalized. Recommend to keep the patient on IV Zosyn for least 2 weeks with close outpatient followup. The patient already has a midline. Continue supportive care. MMODL / IJN: [id number] /
[2019-02-24 20:06] LABS: Glucose,Whole Blood 323 mg/dL (75-99)
[2019-02-24] MEDS: ATORVASTATIN 40 MG TAB PO SCH (20:24)
[2019-02-24] MEDS: DULoxetine HCL 60 MG CAPSULE.DR PO SCH (20:24)
[2019-02-24] MEDS: LATANOPROST 0.005% OPHTH DROPS 2.5 ML BTL BOTH EYES SCH (20:24)
[2019-02-25] MEDS: LEVOTHYROXINE 88 MCG TAB PO SCH (05:09)
[2019-02-25 06:50] LABS: Glucose,Whole Blood 133 mg/dL (75-99)
[2019-02-25 07:16] LABS: Basophils # (A) 0.1 k/uL (0-0.2); Basophils % (A) 1 %; Eosinophils # (A) 0.3 k/uL (0-0.7); Eosinophils % (A) 3 %; HCT 30.4 % (34.0-46.0); HGB 9.5 gm/dL (11.4-16.0); Hypochromasia Marked; Lymphocytes # (A) 1.8 k/uL (1.0-4.8); Lymphocytes % (A) 18 %; MCH 25.1 pg (25.0-35.0); MCHC 31.1 g/dL (31.0-37.0); MCV 80.7 fL (80.0-100.0); Mean Platelet Volume 5.9; Monocytes # (A) 0.6 k/uL (0-1.0); Monocytes % (A) 6 %; Neutrophils # (A) 6.9 k/uL (1.3-7.7); Neutrophils % (A) 69 %; Platelet Count 557 k/uL (150-450); Poikilocytosis Slight; RBC 3.76 m/uL (3.80-5.40); RDW 15.7 % (11.5-15.5)
[2019-02-25] MEDS: INSULIN ASPART (NovoLOG) 100 UNIT/ML VIAL SQ SCH ×4 (07:50→20:21)
[2019-02-25] MEDS: METOPROLOL TARTRATE 50 MG TAB PO SCH ×2 (08:03→20:21)
[2019-02-25] MEDS: CILOSTAZOL 100 MG TAB PO SCH (08:03)
[2019-02-25] MEDS: amLODIPine 10 MG TAB PO SCH (08:03)
[2019-02-25] MEDS: PANTOPRAZOLE 40 MG TABLET PO SCH (08:03)
[2019-02-25] MEDS: oxyCODONE ER 20 MG TAB.ER.12H PO SCH ×2 (08:03→20:22)
[2019-02-25] MEDS: LOSARTAN 50 MG TAB PO SCH (08:03)
[2019-02-25] MEDS: PIPERACILLIN-TAZOBACTAM 3.375 GM in SODIUM CHLORIDE 0.9% 100 ML IVPB SCH ×3 (08:03→23:16)
[2019-02-25] MEDS: SODIUM CHLORIDE 0.9% 1,000 ML IV SCH ×2 (09:21→23:16)
[2019-02-25 11:48] LABS: Glucose,Whole Blood 223 mg/dL (75-99)
[2019-02-25] MEDS: AMIODARONE 100 MG TAB PO SCH (12:31)
[2019-02-25] MEDS: predniSONE 10 MG TAB PO SCH (12:31)
--- NOTE | 2019-02-25 12:44 | P.PN ---
<Mer Licea - Last Filed: 02/25/19 12:42> Subjective Progress Note Date: 02/25/19 CHIEF COMPLAINT: nausea and vomiting HISTORY OF PRESENT ILLNESS: Patient examined at the bedside. She denies abdominal pain. Denies nausea or vomiting. Tolerating diet. WBC 10.0. Hemoglobin 9.5. PHYSICAL EXAM: VITAL SIGNS: Reviewed. GENERAL: Well-developed in no acute distress. HEENT: No sclera icterus. Extraocular movements grossly intact. Moist buccal mucosa. Head is atraumatic, normocephalic. ABDOMEN: Obese. Soft. Nondistended. Midline incision packing to distal end. MASTER with serosanguineous drainage. NEUROLOGIC: Alert and oriented. Cranial nerves II through XII grossly intact. ASSESSMENT: 1. Nausea and vomiting 2. Abdominal seroma, possible abscess 3. Leukocytosis 4. History of recent incisional hernia repair complicated by rectus sheath hemorrhage PLAN: Continue diet as tolerated. Continue MASTER drain. Continue daily dressing changes to abdomen. Infectious disease recommends Zosyn for 2 weeks at the time of discharge. Patient is stable for discharge to subacute rehab from a surgical standpoint when cleared by medicine. Patient to follow with Dr. Montoya outpatient. Nurse practitioner note has been reviewed by physician. Signing provider agrees with the documented findings, assessment, and plan of care. Objective - Vital Signs Vital signs: Vital Signs Temp 98.5 F 02/25/19 07:00 Pulse 68 02/25/19 07:00 Resp 16 02/25/19 07:00 BP 150/94 02/25/19 07:00 Pulse Ox 96 02/25/19 07:00 Intake & Output 02/24/19 02/25/19 02/25/19 18:59 06:59 18:59 Intake Total 100 Output Total 60 30 Balance -60 70 Intake: Oral 100 Output: Drainage 60 30 Right Lower Abdomen 60 30 Other: Voiding Method Toilet Diaper # Voids 1 1 1 - Labs CBC & Chem 7: 02/25/19 06:37 02/22/19 07:16 Labs: Abnormal Lab Results - Last 24 Hours (Table) 02/24/19 02/24/19 02/25/19 Range/Units 16:37 19:54 06:37 RBC 3.76 L (3.80-5.40) m/uL Hgb 9.5 L (11.4-16.0) gm/dL Hct 30.4 L (34.0-46.0) % RDW 15.7 H (11.5-15.5) % Plt Count 557 H (150-450) k/uL POC Glucose (mg/dL) 262 H 323 H (75-99) mg/dL 02/25/19 02/25/19 Range/Units 06:48 11:28 RBC (3.80-5.40) m/uL Hgb (11.4-16.0) gm/dL Hct (34.0-46.0) % RDW (11.5-15.5) % Plt Count (150-450) k/uL POC Glucose (mg/dL) 133 H 223 H (75-99) mg/dL Microbiology - Last 24 Hours (Table) 02/19/19 17:12 Blood Culture - Preliminary Blood No Growth after 120 hours <Adalid Crum - Last Filed: 02/25/19 18:09> Subjective As above. Patient feeling well today. No pain. Tolerating diet. Keep drain in place. Continue antibodies. Objective - Vital Signs Vital signs: Vital Signs Temp 98.3 F 02/25/19 15:00 Pulse 56 L 02/25/19 15:00 Resp 16 02/25/19 15:00 BP 107/66 02/25/19 15:00 Pulse Ox 98 02/25/19 15:00 Intake & Output 02/24/19 02/25/19 02/25/19 18:59 06:59 18:59 Intake Total 100 100 Output Total 60 30 Balance -60 70 100 Weight 83.915 kg Intake: Oral 100 100 Output: Drainage 60 30 Right Lower Abdomen 60 30 Other: Voiding Method Toilet Diaper # Voids 1 1 3 - Labs CBC & Chem 7: 02/25/19 06:37 02/22/19 07:16 Labs: Abnormal Lab Results - Last 24 Hours (Table) 02/24/19 02/25/19 02/25/19 Range/Units 19:54 06:37 06:48 RBC 3.76 L (3.80-5.40) m/uL Hgb 9.5 L (11.4-16.0) gm/dL Hct 30.4 L (34.0-46.0) % RDW 15.7 H (11.5-15.5) % Plt Count 557 H (150-450) k/uL POC Glucose (mg/dL) 323 H 133 H (75-99) mg/dL 02/25/19 02/25/19 Range/Units 11:28 16:49 RBC (3.80-5.40) m/uL Hgb (11.4-16.0) gm/dL Hct (34.0-46.0) % RDW (11.5-15.5) % Plt Count (150-450) k/uL POC Glucose (mg/dL) 223 H 268 H (75-99) mg/dL Microbiology - Last 24 Hours (Table) 02/19/19 17:12 Blood Culture - Preliminary Blood No Growth after 120 hours Assessment and Plan (1) Abdominal abscess Current Visit: No Status: Acute Code(s): [id number] - SNOMED Code(s): 11006928
[2019-02-25 13:25] VITALS: BMI 32.8
--- NOTE | 2019-02-25 15:01 | CDI ---
Documentation Clarification Form Date: 02/25/2019 2:37:25 PM From: Jen Lopez RN CCDS Admit Date: 02/19/2019 9:41:00 PM Patient Name: Carolyn Sellers Visit Number: [id number] Discharge Date: ATTENTION: The Clinical Documentation Specialists (CDI) and [facility] Coding Staff appreciate your assistance in clarifying documentation. Please respond to the clarification below the line at the bottom and electronically sign. The CDI & [facility] Coding staff will review the response and follow-up if needed. Please note: Queries are made part of the Legal Health Record. If you have any questions, please contact the author of this message via ITS. Dr. Cale Rebolledo Sepsis secondary to syndrome of or infection of the incisional hernia repair site Is documented in your Progress Notes 02/23/2019; 02/24/2019 History/Risk Factors: 73-year-old female presents to the ED for generalized weakness over the last two weeks. Sent in by Dr. Abernathy Labs Date of admission 02/19/2019 Wbc 20.6; Hgb 9.9; Neutrophils # 16.4; k 2.5; Lactic acid 3.5; Vss 02/19/2019 110/67 117 98.3 18 96% ra Clinical Indicators: Treatment: 02/19/2019 0.9ns 2L ivpb; 02/20/2019 Zosyn ivpb Definition of Present on Admission (POA): A diagnosis present at the time the order for admission to inpatient status was written. For each diagnosis, documentation must be clear to determine if the condition was present at the time of the patients inpatient admission or developed during the hospital stay. Please clarify if Sepsis was POA: ____Y = Yes, the condition was present at the time of the order for inpatient admission. ____N = No, the condition was not present at the time of the order for inpatient admission. ____W = Clinically undetermined if the condition was present at the time of the order for inpatient admission. (Last Revision: Mar 2018) Sepsis present on admission MTDD
--- NOTE | 2019-02-25 15:16 | PN ---
PROGRESS NOTE DATE OF SERVICE: 02/25/2019. REASON FOR FOLLOWUP: Infected abdominal seroma. INTERVAL HISTORY: The patient is currently afebrile. The patient is breathing comfortably. The patient denies having any chest pain, shortness of breath or cough. No abdominal pain. No nausea, no vomiting. No diarrhea. PHYSICAL EXAMINATION: Blood pressure 150/94 with a pulse of 68, temperature 98.5, she is 93% on room air. General description is an elderly female, lying in bed in no distress. RESPIRATORY SYSTEM: Unlabored breathing, clear to auscultation anteriorly. HEART: S1, S2. Regular rate and rhythm. ABDOMEN:: Soft, no redness.. LAB: Hemoglobin is 9.5 with a white count of 10. Blood culture has been negative. DIAGNOSTIC IMPRESSION AND PLAN: Patient admitted to the hospital with abdominal pain, nausea and vomiting has been diagnosed with abdominal seroma. Patient clinically responding to Zosyn. Blood culture has been negative. Plan is to finish therapy with IV Zosyn for [address] before stopping her antibiotic. Weekly CBC, BMP and sed rate and monitor clinical course closely. MMODL / IJN: [id number] /
--- NOTE | 2019-02-25 16:18 | P.DS ---
Providers Date of admission: 02/19/19 21:41 Attending physician: Parveen Dietz Consults: 02/19/19 20:43 Consult Physician Stat Consulting Provider: Christopher Montoya Consult Reason/Comments: Generalized weakness, nausea vomiting Do you want consulting provider notified?: Yes 02/20/19 08:18 Consult Physician Routine Consulting Provider: Comfort Lancaster Consult Reason/Comments: Leukocytosis Do you want consulting provider notified?: Yes Primary care physician: [facility] Course: 89-year-old the female was admitted for acute renal failure renal failure improved. Patient has generalized weakness considering her age will obtain PT and OT consultation patient is agreeable to go to subacute rehabilitation if needed. Patient doesn't have any signs or symptoms of GI bleed hemoglobin is 7 .1 IV fluids will be discontinued. Patient will restart back on Plavix. Patient is already getting aspirin. Hold off on hydrochlorothiazide. Serum potassium is 5.3 Will repeat basic metabolic profile tomorrow. Patient does have elevated MCV will obtain B12 and folate levels. 02/25/2019 Patient appears to have for B12 deficiency and macrocytic anemia secondary to that and will order a B12 injection B12 oral supplementation. Patient will be discharged today. As per the request of the patient's family and had previous CAT scan findings of a mass in the cerebral Falx, ordered an MRI of the head with contrast which showed a small meningioma of about 9X 5 mm meningioma, which patient will be referred to a neurologist as an outpatient. Patient will be discharged today I had a lengthy discussion with the family today. There is no evidence of GI bleed at this time. Patient also appears to have superimposed iron deficiency anemia PHYSICAL EXAMINATION: GENERAL: The patient is alert and oriented x3, not in any acute distress. Well developed, well nourished. HEENT: Pupils are round and equally reacting to light. EOMI. No scleral icterus. No conjunctival pallor. Normocephalic, atraumatic. No pharyngeal erythema. No thyromegaly. CARDIOVASCULAR: S1 and S2 present. No murmurs, rubs, or gallops. PULMONARY: Chest is clear to auscultation, no wheezing or crackles. ABDOMEN: Soft, nontender, nondistended, normoactive bowel sounds. No palpable organomegaly. MUSCULOSKELETAL: No joint swelling or deformity. EXTREMITIES: No cyanosis, clubbing, or pedal edema. NEUROLOGICAL: Gross neurological examination did not reveal any focal deficits. SKIN: No rashes. Assessment and Plan Plan: fatigue and weakness: Secondary to dehydration intravascular volume and patient secondary to hydrochlorothiazide this will be discontinued, patient will not need a hydrochlorothiazide and patient blood pressures were actually low at home -acute renal failure: Improved with IV fluids prerenal azotemia -Anemia appears to be chronic patient has both the B12 deficiency and iron deficiency. -coronary artery disease with recent stents patient will be resumed on dual antiplatelet therapy as there is no evidence of clinical acute GI bleed -hypothyroidism Patient Condition at Discharge: Fair Plan - Discharge Summary Discharge Rx Participant: No New Discharge Prescriptions: New Acetaminophen Tab [Tylenol Tab] 650 mg PO Q4H PRN #30 tablet PRN Reason: Pain Piperacillin-Tazobactam [Zosyn] 3.375 gm IVPB Q8HR #42 bag Continue Ergocalciferol (Vitamin D2) [Vitamin D2] 50,000 unit PO COHEN DULoxetine HCL [Cymbalta] 60 mg PO HS Atorvastatin [Lipitor] 40 mg PO HS Furosemide [Lasix] 40 mg PO BID Latanoprost/Pf [Latanoprost 0.005% Eye Drop] 1 drop BOTH EYES HS Amiodarone [Cordarone] 100 mg PO AC-LUNCH amLODIPine [Norvasc] 10 mg PO DAILY Potassium Chloride ER [K-Dur 20] 20 meq PO DAILY predniSONE 10 mg PO AC-LUNCH Metoprolol Tartrate [Lopressor] 50 mg PO BID Losartan Potassium 100 mg PO DAILY Cilostazol [Pletal] 100 mg PO DAILY Levothyroxine Sodium [Tirosint] 88 mcg PO DAILY metFORMIN HCL [Glucophage] 500 mg PO BID Ondansetron [Zofran] 8 mg PO DAILY PRN PRN Reason: Nausea Loperamide [Imodium] 2 mg PO DAILY oxyCODONE ER [OxyCONTIN] 20 mg PO BID #10 tab Discharge Medication List DULoxetine HCL [Cymbalta] 60 mg PO HS 12/14/16 [History] Ergocalciferol (Vitamin D2) [Vitamin D2] 50,000 unit PO COHEN 12/14/16 [History] Atorvastatin [Lipitor] 40 mg PO HS 01/24/18 [History] Amiodarone [Cordarone] 100 mg PO AC-LUNCH 03/02/18 [History] Furosemide [Lasix] 40 mg PO BID 03/02/18 [History] Latanoprost/Pf [Latanoprost 0.005% Eye Drop] 1 drop BOTH EYES HS 03/02/18 [History] Cilostazol [Pletal] 100 mg PO DAILY 11/15/18 [History] Levothyroxine Sodium [Tirosint] 88 mcg PO DAILY 11/15/18 [History] Losartan Potassium 100 mg PO DAILY 11/15/18 [History] Metoprolol Tartrate [Lopressor] 50 mg PO BID 11/15/18 [History] Potassium Chloride ER [K-Dur 20] 20 meq PO DAILY 11/15/18 [History] amLODIPine [Norvasc] 10 mg PO DAILY 11/15/18 [History] metFORMIN HCL [Glucophage] 500 mg PO BID 11/15/18 [History] predniSONE 10 mg PO AC-LUNCH 11/15/18 [History] Ondansetron [Zofran] 8 mg PO DAILY PRN 01/17/19 [History] Loperamide [Imodium] 2 mg PO DAILY 02/19/19 [History] Acetaminophen Tab [Tylenol Tab] 650 mg PO Q4H PRN #30 tablet 02/25/19 [Rx] Piperacillin-Tazobactam [Zosyn] 3.375 gm IVPB Q8HR #42 bag 02/25/19 [Rx] oxyCODONE ER [OxyCONTIN] 20 mg PO BID #10 tab 02/25/19 [Rx] Follow up Appointment(s)/Referral(s): Diaz Alcala DO [Primary Care Provider] - 03/05/19 3:40 pm Comfort Lancaster MD [STAFF PHYSICIAN] - 1 Week Christopher Montoya MD [STAFF PHYSICIAN] - 03/05/19 2:00 pm Ambulatory/Diagnostic Orders: Basic Metabolic Panel [LAB.AMB] Location: None Selected C Reactive Protein [LAB.AMB] Location: None Selected Complete Blood Count w/diff [LAB.AMB] Location: None Selected Patient Instructions/Handouts: Abdominal Pain (ED) Activity/Diet/Wound Care/Special Instructions: Diet as tolerated Keep a log of MASTER drain output Daily dressing changes to midline incision Discharge Disposition: TRANSFER TO SNF/ECF
[2019-02-25 17:01] LABS: Glucose,Whole Blood 268 mg/dL (75-99)
[2019-02-25 20:17] LABS: Glucose,Whole Blood 355 mg/dL (75-99)
[2019-02-25] MEDS: LATANOPROST 0.005% OPHTH DROPS 2.5 ML BTL BOTH EYES SCH (20:21)
[2019-02-25] MEDS: ATORVASTATIN 40 MG TAB PO SCH (20:22)
[2019-02-25] MEDS: DULoxetine HCL 60 MG CAPSULE.DR PO SCH (20:23)
[2019-02-26] MEDS: LEVOTHYROXINE 88 MCG TAB PO SCH (05:14)
[2019-02-26 07:06] LABS: Glucose,Whole Blood 130 mg/dL (75-99)
[2019-02-26] MEDS: INSULIN ASPART (NovoLOG) 100 UNIT/ML VIAL SQ SCH ×4 (07:10→21:05)
[2019-02-26] MEDS: oxyCODONE ER 20 MG TAB.ER.12H PO SCH ×2 (07:23→20:58)
[2019-02-26] MEDS: LOSARTAN 50 MG TAB PO SCH (07:23)
[2019-02-26] MEDS: amLODIPine 10 MG TAB PO SCH (07:23)
[2019-02-26] MEDS: PANTOPRAZOLE 40 MG TABLET PO SCH (07:23)
[2019-02-26] MEDS: METOPROLOL TARTRATE 50 MG TAB PO SCH ×2 (07:24→20:58)
[2019-02-26] MEDS: CILOSTAZOL 100 MG TAB PO SCH (07:24)
[2019-02-26] MEDS: PIPERACILLIN-TAZOBACTAM 3.375 GM in SODIUM CHLORIDE 0.9% 100 ML IVPB SCH ×2 (07:24→17:05)
[2019-02-26 11:32] LABS: Glucose,Whole Blood 182 mg/dL (75-99)
[2019-02-26] MEDS: predniSONE 10 MG TAB PO SCH (12:03)
[2019-02-26] MEDS: SODIUM CHLORIDE 0.9% 1,000 ML IV SCH (12:03)
[2019-02-26] MEDS: AMIODARONE 100 MG TAB PO SCH (12:03)
--- NOTE | 2019-02-26 12:14 | P.PN ---
<Mer Licea - Last Filed: 02/26/19 12:12> Subjective Progress Note Date: 02/26/19 CHIEF COMPLAINT: nausea and vomiting HISTORY OF PRESENT ILLNESS: Patient examined at the bedside. She denies abdominal pain. Denies nausea or vomiting. Tolerating diet. PHYSICAL EXAM: VITAL SIGNS: Reviewed. GENERAL: Well-developed in no acute distress. HEENT: No sclera icterus. Extraocular movements grossly intact. Moist buccal mucosa. Head is atraumatic, normocephalic. ABDOMEN: Obese. Soft. Nondistended. Midline incision packing to distal end. MASTER with serosanguineous drainage. NEUROLOGIC: Alert and oriented. Cranial nerves II through XII grossly intact. ASSESSMENT: 1. Nausea and vomiting 2. Abdominal seroma, possible abscess 3. Leukocytosis 4. History of recent incisional hernia repair complicated by rectus sheath hemorrhage PLAN: Continue diet as tolerated. Continue MASTER drain. Continue daily dressing changes to abdomen. Infectious disease recommends Zosyn for 2 weeks at the time of discharge. Patient is stable for discharge to subacute rehab from a surgical standpoint when insurance authorization is received. Patient to follow with Dr. Montoya outpatient. Nurse practitioner note has been reviewed by physician. Signing provider agrees with the documented findings, assessment, and plan of care. Objective - Vital Signs Vital signs: Vital Signs Temp 98.0 F 02/26/19 07:00 Pulse 71 02/26/19 07:00 Resp 18 02/26/19 07:00 BP 131/88 02/26/19 07:00 Pulse Ox 95 02/26/19 00:27 Intake & Output 02/25/19 02/26/19 02/26/19 18:59 06:59 18:59 Intake Total 100 200 Output Total 70 Balance 100 130 Weight 83.915 kg Intake: Intake, IV Titration 200 Amount Piperacillin-Tazobactam 3 200 .375 gm In Sodium Chloride 0.9% 100 ml @ 25 mls/hr IVPB Q8HR [facility] Rx# :[id number] Oral 100 Output: Drainage 70 Right Lower Abdomen 70 Other: Voiding Method Toilet Toilet # Voids 3 1 # Bowel Movements 1 - Labs CBC & Chem 7: 02/25/19 06:37 02/22/19 07:16 Labs: Abnormal Lab Results - Last 24 Hours (Table) 02/25/19 02/25/1902/26/19 Range/Units 16:49 20:15 06:48 POC Glucose (mg/dL) 268 H 355 H 130 H (75-99) mg/dL 02/26/19 Range/Units 11:25 POC Glucose (mg/dL) 182 H (75-99) mg/dL Microbiology - Last 24 Hours (Table) 02/19/19 17:12 Blood Culture - Final Blood No Growth after 144 hours <Adalid Crum - Last Filed: 02/26/19 14:25> Subjective As above. Patient feels well today. Denies pain. Await transfer. Objective - Vital Signs Vital signs: Vital Signs Temp 98.0 F 02/26/19 07:00 Pulse 71 02/26/19 07:00 Resp 18 02/26/19 07:00 BP 131/88 02/26/19 07:00 Pulse Ox 95 02/26/19 00:27 Intake & Output 02/25/19 02/26/19 02/26/19 18:59 06:59 18:59 Intake Total 100 200 Output Total 70 Balance 100 130 Weight 83.915 kg Intake: Intake, IV Titration 200 Amount Piperacillin-Tazobactam 3 200 .375 gm In Sodium Chloride 0.9% 100 ml @ 25 mls/hr IVPB Q8HR [facility] Rx# :[id number] Oral 100 Output: Drainage 70 Right Lower Abdomen 70 Other: Voiding Method Toilet Toilet # Voids 3 1 # Bowel Movements 1 - Labs CBC & Chem 7: 02/25/19 06:37 02/22/19 07:16 Labs: Abnormal Lab Results - Last 24 Hours (Table) 02/25/19 02/25/19 02/26/19 Range/Units 16:49 20:15 06:48 POC Glucose (mg/dL) 268 H 355 H 130 H (75-99) mg/dL 02/26/19 Range/Units 11:25 POC Glucose (mg/dL) 182 H (75-99) mg/dL Microbiology - Last 24 Hours (Table) 02/19/19 17:12 Blood Culture - Final Blood No Growth after 144 hours Assessment and Plan (1) Abdominal abscess Current Visit: No Status: Acute Code(s): [id number] - SNOMED Code(s): 93927764
[2019-02-26 16:42] LABS: Glucose,Whole Blood 216 mg/dL (75-99)
--- NOTE | 2019-02-26 16:57 | P.PN ---
Subjective Progress Note Date: 02/25/19 73-year-old with a previous history of abdominal wall surgeries admitted for abdominal wall infection. Patient there was a concern about infection in the left PICC site area which are examined and there is no evidence of cellulitis in that area. Patient is on Zosyn. Patient does have right upper quadrant MASTER drain in place. Patient is awaiting disposition to subacute rehabilitation 06/27/2018 No overnight events 02/25/2019 Patient is clinically doing well patient will be discharged to subacute re habilitation on IV antibiotics Constitutional: Denied any fatigue denied any fever. Cardio vascular: denied any chest pain, palpitations Gastrointestinal denied any nausea vomiting Pulmonary: Denied any shortness of breath cough Neurologic denied any new focal deficits All inpatient medications were reviewed and appropriate changes in these medications as dictated in the interval history and assessment and plan. Objective - Vital Signs Vital signs: Vital Signs Temp 98.1 F 02/26/19 14:47 Pulse 71 02/26/19 14:47 Resp 18 02/26/19 14:47 BP 131/88 02/26/19 07:00 Pulse Ox 98 02/26/19 14:47 Intake & Output 02/25/19 02/26/19 02/26/19 18:59 06:59 18:59 Intake Total 100 200 Output Total 70 Balance 100 130 Weight 83.915 kg Intake: Intake, IV Titration 200 Amount Piperacillin-Tazobactam 3 200 .375 gm In Sodium Chloride 0.9% 100 ml @ 25 mls/hr IVPB Q8HR [facility] Rx# :[id number] Oral 100 Output: Drainage 70 Right Lower Abdomen 70 Other: Voiding Method Toilet Toilet # Voids 3 1 2 # Bowel Movements 1 - Exam PHYSICAL EXAMINATION: GENERAL: The patient is alert and oriented x3, not in any acute distress. Well developed, well nourished. HEENT: Pupils are round and equally reacting to light. EOMI. No scleral icterus. No conjunctival pallor. Normocephalic, atraumatic. No pharyngeal erythema. No thyromegaly. CARDIOVASCULAR: S1 and S2 present. No murmurs, rubs, or gallops. PULMONARY: Chest is clear to auscultation, no wheezing or crackles. ABDOMEN: Soft, nontender, nondistended, normoactive bowel sounds. No palpable organomegaly. Right upper quadrant abdominal wall draining MUSCULOSKELETAL: No joint swelling or deformity. EXTREMITIES: No cyanosis, clubbing, or pedal edema. NEUROLOGICAL: Gross neurological examination did not reveal any focal deficits. SKIN: No rashes. - Labs CBC & Chem 7: 02/25/19 06:37 02/22/19 07:16 Labs: Abnormal Lab Results - Last 24 Hours (Table) 02/25/19 02/25/19 02/26/19 Range/Units 16:49 20:15 06:48 POC Glucose (mg/dL) 268 H 355 H 130 H (75-99) mg/dL 02/26/19 02/26/19 Range/Units 11:25 16:41 POC Glucose (mg/dL) 182 H 216 H (75-99) mg/dL Microbiology - Last 24 Hours (Table) 02/19/19 17:12 Blood Culture - Final Blood No Growth after 144 hours Assessment and Plan Plan: Sepsis secondary to syndrome of or infection of the incisional hernia repair site. Patient is Zosyn which will be continued infectious disease evaluated the patientwill be discharged to subacute rehabilitation tomorrow Non-nausea vomiting probably related to sepsis -Coronary artery disease Kaylen-proximal A. fib presently rate controlled 10 peripheral artery disease -Hypothyroidism -Type 2 diabetes mellitus -Hyperlipidemia -Essential hypertension patient had a recent bowel perforation and intra- abdominal abscess -Obesity For above-mentioned chronic medical problems patient will be resumed and continued on appropriate home medications patient will be discharged to subacute rehabilitation on Monday antibiotic recommendations as per infectious disease
--- NOTE | 2019-02-26 16:58 | P.PN ---
Subjective 73-year-old with a previous history of abdominal wall surgeries admitted for abdominal wall infection. Patient there was a concern about infection in the left PICC site area which are examined and there is no evidence of cellulitis in that area. Patient is on Zosyn. Patient does have right upper quadrant MASTER drain in place. Patient is awaiting disposition to subacute rehabilitation 06/27/2018 No overnight events 02/25/2019 Patient is clinically doing well patient will be discharged to subacute rehabilitation on IV antibiotics February 26 2019 Still awaiting insurance authorization to be discharged to subacute rehab Constitutional: Denied any fatigue denied any fever. Cardio vascular: denied any chest pain, palpitations Gastrointestinal denied any nausea vomiting Pulmonary: Denied any shortness of breath cough Neurologic denied any new focal deficits All inpatient medications were reviewed and appropriate changes in these medica tions as dictated in the interval history and assessment and plan. Objective - Vital Signs Vital signs: Vital Signs Temp 98.1 F 02/26/19 14:47 Pulse 71 02/26/19 14:47 Resp 18 02/26/19 14:47 BP 131/88 02/26/19 07:00 Pulse Ox 98 02/26/19 14:47 Intake & Output 02/25/19 02/26/19 02/26/19 18:59 06:59 18:59 Intake Total 100 200 Output Total 70 Balance 100 130 Weight 83.915 kg Intake: Intake, IV Titration 200 Amount Piperacillin-Tazobactam 3 200 .375 gm In Sodium Chloride 0.9% 100 ml @ 25 mls/hr IVPB Q8HR [facility] Rx# :[id number] Oral 100 Output: Drainage 70 Right Lower Abdomen 70 Other: Voiding Method Toilet Toilet # Voids 3 1 2 # Bowel Movements 1 - Exam PHYSICAL EXAMINATION: GENERAL: The patient is alert and oriented x3, not in any acute distress. Well developed, well nourished. HEENT: Pupils are round and equally reacting to light. EOMI. No scleral icterus. No conjunctival pallor. Normocephalic, atraumatic. No pharyngeal erythema. No thyromegaly. CARDIOVASCULAR: S1 and S2 present. No murmurs, rubs, or gallops. PULMONARY: Chest is clear to auscultation, no wheezing or crackles. ABDOMEN: Soft, nontender, nondistended, normoactive bowel sounds. No palpable organomegaly. Right upper quadrant abdominal wall draining MUSCULOSKELETAL: No joint swelling or deformity. EXTREMITIES: No cyanosis, clubbing, or pedal edema. NEUROLOGICAL: Gross neurological examination did not reveal any focal deficits. SKIN: No rashes. - Labs CBC & Chem 7: 02/25/19 06:37 02/22/19 07:16 Labs: Abnormal Lab Results - Last 24 Hours (Table) 02/25/19 02/25/19 02/26/19 Range/Units 16:49 20:15 06:48 POC Glucose (mg/dL) 268 H 355 H 130 H (75-99) mg/dL 02/26/19 02/26/19 Range/Units 11:25 16:41 POC Glucose (mg/dL) 182 H 216 H (75-99) mg/dL Microbiology - Last 24 Hours (Table) 02/19/19 17:12 Blood Culture - Final Blood No Growth after 144 hours Assessment and Plan Plan: Sepsis secondary to syndrome of or infection of the incisional hernia repair site. Patient is Zosyn which will be continued infectious disease evaluated the patientwill be discharged to subacute rehabilitation tomorrow Non-nausea vomiting probably related to sepsis -Coronary artery disease Kaylen-proximal A. fib presently rate controlled 10 peripheral artery disease -Hypothyroidism -Type 2 diabetes mellitus -Hyperlipidemia -Essential hypertension patient had a recent bowel perforation and intra-abd ominal abscess -Obesity For above-mentioned chronic medical problems patient will be resumed and co ntinued on appropriate home medications patient will be discharged to subacute rehabilitation on Monday antibiotic recommendations as per infectious disease
[2019-02-26] MEDS: LATANOPROST 0.005% OPHTH DROPS 2.5 ML BTL BOTH EYES SCH (20:57)
[2019-02-26] MEDS: ATORVASTATIN 40 MG TAB PO SCH (20:59)
[2019-02-26] MEDS: DULoxetine HCL 60 MG CAPSULE.DR PO SCH (20:59)
[2019-02-26 21:04] LABS: Glucose,Whole Blood 286 mg/dL (75-99)
--- NOTE | 2019-02-26 23:37 | PN ---
PROGRESS NOTE DATE OF SERVICE: 02/26/2019 REASON FOR FOLLOWUP: Infected abdominal seroma. INTERVAL HISTORY: The patient is currently afebrile. The patient is breathing comfortably. The patient denies having any chest pain, shortness of breath or cough. No nausea or vomiting. No abdominal pain or diarrhea. PHYSICAL EXAMINATION: Blood pressure 120/70 with a pulse of 68, temperature 97.7. She is 97% on room air. General description is an elderly female lying in bed in no distress. RESPIRATORY SYSTEM: Unlabored breathing. Clear to auscultation anteriorly. HEART: S1, S2. Regular rate and rhythm. ABDOMEN: Soft. No tenderness. LABS: No new labs have been obtained today. Blood culture has been negative. DIAGNOSTIC IMPRESSION AND PLAN: Patient admitted to hospital with abdominal pain, nausea, vomiting, diarrhea with concern for underlying infection of abdominal seroma. The patient responded to Zosyn; to continue for another 10 days with close outpatient followup. Patient is currently waiting for placement per insurance approval. MMODL / IJN: [id number] /
[2019-02-27] MEDS: PIPERACILLIN-TAZOBACTAM 3.375 GM in SODIUM CHLORIDE 0.9% 100 ML IVPB SCH ×2 (00:24→08:02)
[2019-02-27] MEDS: SODIUM CHLORIDE 0.9% 1,000 ML IV SCH ×2 (00:25→11:57)
[2019-02-27] MEDS: LEVOTHYROXINE 88 MCG TAB PO SCH (05:34)
[2019-02-27 06:52] LABS: Glucose,Whole Blood 175 mg/dL (75-99)
[2019-02-27] MEDS: INSULIN ASPART (NovoLOG) 100 UNIT/ML VIAL SQ SCH ×2 (07:07→11:59)
[2019-02-27] MEDS: PANTOPRAZOLE 40 MG TABLET PO SCH (07:07)
[2019-02-27 07:53] VITALS: TEMP 98.1
[2019-02-27] MEDS: amLODIPine 10 MG TAB PO SCH (09:43)
[2019-02-27] MEDS: oxyCODONE ER 20 MG TAB.ER.12H PO SCH (09:43)
[2019-02-27] MEDS: CILOSTAZOL 100 MG TAB PO SCH (09:44)
[2019-02-27] MEDS: METOPROLOL TARTRATE 50 MG TAB PO SCH (09:44)
[2019-02-27 09:47] VITALS: PULSE 73
[2019-02-27] MEDS: LOSARTAN 50 MG TAB PO SCH (10:00)
[2019-02-27 11:52] LABS: Glucose,Whole Blood 205 mg/dL (75-99)
[2019-02-27] MEDS: predniSONE 10 MG TAB PO SCH (12:00)
[2019-02-27] MEDS: AMIODARONE 100 MG TAB PO SCH (12:00)
[2019-02-27 12:05] VITALS: BP 133/80
--- NOTE | 2019-02-27 12:52 | P.DS ---
Providers Date of admission: 02/19/19 21:41 Attending physician: Parveen Dietz Consults: 02/19/19 20:43 Consult Physician Stat Consulting Provider: Christopher Montoya Consult Reason/Comments: Generalized weakness, nausea vomiting Do you want consulting provider notified?: Yes 02/20/19 08:18 Consult Physician Routine Consulting Provider: Comfort Lancaster Consult Reason/Comments: Leukocytosis Do you want consulting provider notified?: Yes Primary care physician: [facility] Course: 73-year-old with a previous history of abdominal wall surgeries admitted for abdominal wall infection. Patient there was a concern about infection in the left PICC site area which are examined and there is no evidence of cellulitis in that area. Patient is on Zosyn. Patient does have right upper quadrant MASTER drain in place. Patient is awaiting disposition to subacute rehabilitation 06/27/2018 No overnight events 02/25/2019 Patient is clinically doing well patient will be discharged to subacute reha bilitation on IV antibiotics February 26 2019 Still awaiting insurance authorization to be discharged to subacute rehab 02/27/2019 Patient is being discharged to subacute rehabilitation. PHYSICAL EXAMINATION: GENERAL: The patient is alert and oriented x3, not in any acute distress. Well developed, well nourished. HEENT: Pupils are round and equally reacting to light. EOMI. No scleral icterus. No conjunctival pallor. Normocephalic, atraumatic. No pharyngeal erythema. No thyromegaly. CARDIOVASCULAR: S1 and S2 present. No murmurs, rubs, or gallops. PULMONARY: Chest is clear to auscultation, no wheezing or crackles. ABDOMEN: Soft, nontender, nondistended, normoactive bowel sounds. No palpable organomegaly. Right upper quadrant abdominal wall MASTER drain in place MUSCULOSKELETAL: No joint swelling or deformity. EXTREMITIES: No cyanosis, clubbing, or pedal edema. NEUROLOGICAL: Gross neurological examination did not reveal any focal deficits. SKIN: No rashes. Assessment and Plan Plan: Sepsis secondary to syndrome of or infection of the incisional hernia repair site. Patient is Zosyn which will be continued infectious disease evaluated the patientwill be discharged to subacute rehabilitation today -nausea vomiting probably related to sepsischest resolved now -Coronary artery disease -proximal A. fib presently rate controlled 10 peripheral artery disease -Hypothyroidism -Type 2 diabetes mellitus -Hyperlipidemia -Essential hypertension patient had a recent bowel perforation and intra- abdominal abscess -Obesity Patient Condition at Discharge: Fair Plan - Discharge Summary Discharge Rx Participant: No New Discharge Prescriptions: New Acetaminophen Tab [Tylenol Tab] 650 mg PO Q4H PRN #30 tablet PRN Reason: Pain Piperacillin-Tazobactam [Zosyn] 3.375 gm IVPB Q8HR #42 bag Continue Ergocalciferol (Vitamin D2) [Vitamin D2] 50,000 unit PO COHEN DULoxetine HCL [Cymbalta] 60 mg PO HS Atorvastatin [Lipitor] 40 mg PO HS Furosemide [Lasix] 40 mg PO BID Latanoprost/Pf [Latanoprost 0.005% Eye Drop] 1 drop BOTH EYES HS Amiodarone [Cordarone] 100 mg PO AC-LUNCH amLODIPine [Norvasc] 10 mg PO DAILY Potassium Chloride ER [K-Dur 20] 20 meq PO DAILY predniSONE 10 mg PO AC-LUNCH Metoprolol Tartrate [Lopressor] 50 mg PO BID Losartan Potassium 100 mg PO DAILY Cilostazol [Pletal] 100 mg PO DAILY Levothyroxine Sodium [Tirosint] 88 mcg PO DAILY metFORMIN HCL [Glucophage] 500 mg PO BID Ondansetron [Zofran] 8 mg PO DAILY PRN PRN Reason: Nausea Loperamide [Imodium] 2 mg PO DAILY oxyCODONE ER [OxyCONTIN] 20 mg PO BID #10 tab Discharge Medication List DULoxetine HCL [Cymbalta] 60 mg PO HS 12/14/16 [History] Ergocalciferol (Vitamin D2) [Vitamin D2] 50,000 unit PO COHEN 12/14/16 [History] Atorvastatin [Lipitor] 40 mg PO HS 01/24/18 [History] Amiodarone [Cordarone] 100 mg PO AC-LUNCH 03/02/18 [History] Furosemide [Lasix] 40 mg PO BID 03/02/18 [History] Latanoprost/Pf [Latanoprost 0.005% Eye Drop] 1 drop BOTH EYES HS 03/02/18 [History] Cilostazol [Pletal] 100 mg PO DAILY 11/15/18 [History] Levothyroxine Sodium [Tirosint] 88 mcg PO DAILY 11/15/18 [History] Losartan Potassium 100 mg PO DAILY 11/15/18 [History] Metoprolol Tartrate [Lopressor] 50 mg PO BID 11/15/18 [History] Potassium Chloride ER [K-Dur 20] 20 meq PO DAILY 11/15/18 [History] amLODIPine [Norvasc] 10 mg PO DAILY 11/15/18 [History] metFORMIN HCL [Glucophage] 500 mg PO BID 11/15/18 [History] predniSONE 10 mg PO AC-LUNCH 11/15/18 [History] Ondansetron [Zofran] 8 mg PO DAILY PRN 01/17/19 [History] Loperamide [Imodium] 2 mg PO DAILY 02/19/19 [History] Acetaminophen Tab [Tylenol Tab] 650 mg PO Q4H PRN #30 tablet 02/25/19 [Rx] Piperacillin-Tazobactam [Zosyn] 3.375 gm IVPB Q8HR #42 bag 02/25/19 [Rx] oxyCODONE ER [OxyCONTIN] 20 mg PO BID #10 tab 02/25/19 [Rx] Follow up Appointment(s)/Referral(s): Diaz Alcala DO [Primary Care Provider] - 03/05/19 3:40 pm Comfort Lancaster MD [STAFF PHYSICIAN] - 03/12/19 2:15 pm Christopher Montoya MD [STAFF PHYSICIAN] - 03/05/19 2:00 pm Ambulatory/Diagnostic Orders: Basic Metabolic Panel [LAB.AMB] Location: None Selected C Reactive Protein [LAB.AMB] Location: None Selected Complete Blood Count w/diff [LAB.AMB] Location: None Selected Patient Instructions/Handouts: Abdominal Pain (ED) Activity/Diet/Wound Care/Special Instructions: Diet as tolerated Keep a log of MASTER drain output Daily dressing changes to midline incision Discharge Disposition: TRANSFER TO SNF/ECF
[2019-02-27 12:56] VITALS: RESP 18
--- NOTE | 2019-03-01 11:37 | CDI ---
Documentation Clarification Form Date: 03/01/19 From: Paty Shepherd Phone: If you have a question about this query, please contact Teresa Duarte, Hospice Volunteer at [phone] between 8am and 5pm. Admit Date: 02/19/19 Discharge Date: 02/27/19 Patient Name: Carolyn Sellers Visit Number: [id number] ATTENTION: The Clinical Documentation Specialists (CDI) and [facility] Coding Staff appreciate your assistance in clarifying documentation. Please respond to the clarification below the line at the bottom and electronically sign. The CDI & [facility] Coding staff will review the response and follow-up if needed. Please note: Queries are made part of the Legal Health Record. If you have any questions, please contact the author of this message via ITS. Dear Dr Miguel Rebolledo, The diagnosis surgical site infection was documented in the 02/14 PN, but is not noted in subsequent documentation. History/Risk Factors: s/p hernia repair w seroma, infected w sepsis Clinical Indicators: WBC-20.6, Neutrophils-16.4, lactic acid 3.5 Treatment: IV Rocephin, IV Zoysn, dc'd on IV Zosyn Please clarify if the specific depth of infection: Deep incisional surgical site (intra-muscular abscess) Organ and/or space surgical site (intra-abdominal or subphrenic abscess) Superficial incisional surgical site (stitch or subcutaneous abscess) Other, please specify Clinically unable to determine As already dictated as abdominal wall which means superficial incisional site area MTDD
== END 2019-02-27 13:45 | DRG 862 ==
LOC: EC 12:49 → OBSVTOIN 21:41 → 4SSUR 21:41
PROVIDERS: ADMIT Hospitalist; ATTEND Hospitalist
PROC: 3E0234Z Introduction of Serum, Toxoid and Vaccine into Muscle, Percutaneous Approach (ICD-10-PCS; principal; 2019-02-20)
PROC: 05HF33Z Insertion of Infusion Device into Left Cephalic Vein, Percutaneous Approach (ICD-10-PCS; 2019-02-22 16:35)
DX: T81.44XA Sepsis following a procedure, initial encounter (principal); A41.9 Sepsis, unspecified organism; K91.872 Postprocedural seroma of a digestive system organ or structure following a digestive system procedure; T81.31XA Disruption of external operation (surgical) wound, not elsewhere classified, initial encounter; T81.41XA Infection following a procedure, superficial incisional surgical site, initial encounter; E11.51 Type 2 diabetes mellitus with diabetic peripheral angiopathy without gangrene; I48.0 Paroxysmal atrial fibrillation; Z23 Encounter for immunization; E87.6 Hypokalemia; I44.0 Atrioventricular block, first degree; I25.10 Atherosclerotic heart disease of native coronary artery without angina pectoris; E78.5 Hyperlipidemia, unspecified; I10 Essential (primary) hypertension; M19.012 Primary osteoarthritis, left shoulder; M19.011 Primary osteoarthritis, right shoulder; G89.29 Other chronic pain; M47.816 Spondylosis without myelopathy or radiculopathy, lumbar region; E03.9 Hypothyroidism, unspecified; F32.9 Major depressive disorder, single episode, unspecified; F41.9 Anxiety disorder, unspecified; R32 Unspecified urinary incontinence; E66.9 Obesity, unspecified; Z68.32 Body mass index [BMI] 32.0-32.9, adult; Z79.02 Long term (current) use of antithrombotics/antiplatelets; Z79.890 Hormone replacement therapy; Z79.84 Long term (current) use of oral hypoglycemic drugs; Z79.52 Long term (current) use of systemic steroids; Z79.891 Long term (current) use of opiate analgesic; Z79.899 Other long term (current) drug therapy; Z71.3 Dietary counseling and surveillance; Z87.891 Personal history of nicotine dependence; Z86.19 Personal history of other infectious and parasitic diseases; Z90.49 Acquired absence of other specified parts of digestive tract; Z95.1 Presence of aortocoronary bypass graft; Z95.5 Presence of coronary angioplasty implant and graft; Z96.653 Presence of artificial knee joint, bilateral; Z95.828 Presence of other vascular implants and grafts; Z98.890 Other specified postprocedural states; Z90.12 Acquired absence of left breast and nipple; Z80.49 Family history of malignant neoplasm of other genital organs; Z82.49 Family history of ischemic heart disease and other diseases of the circulatory system; Y83.8 Other surgical procedures as the cause of abnormal reaction of the patient, or of later complication, without mention of misadventure at the time of the procedure
CPT/HCPCS: 36410; 36415; 74177; 76937; 80048; 80053; 81001; 83036; 83605; 83735; 85025; 87040; 90471; 90732; 93005; 96361; 96365; 96375; 99285

== ENCOUNTER 2019-03-05 17:16 | Inpatient (IN) | payer MEDICARE ==
[2019-03-05] MEDS ORDERED: SODIUM CHLORIDE 0.9% 1,000 ML IV STA ×2 (18:15)
[2019-03-05] MEDS ORDERED: MORPHINE SULFATE 4 MG/ML SYRINGE IV STA (18:15)
[2019-03-05] MEDS ORDERED: PIPERACILLIN-TAZOBACTAM 3.375 GM in SODIUM CHLORIDE 0.9% 100 ML IVPB STA (19:04)
[2019-03-05] MEDS ORDERED: SODIUM CHLORIDE 0.9% 1,000 ML IV SCH (19:30)
[2019-03-05] MEDS ORDERED: NALOXONE 0.4 MG/ML 1 ML VIAL IV PRN (19:30)
[2019-03-05] MEDS ORDERED: HYDROmorphone 0.5 MG/0.5 ML SYRINGE IVP PRN (19:30)
[2019-03-05] MEDS ORDERED: MORPHINE SULFATE 4 MG/ML SYRINGE IV PRN (19:30)
--- NOTE | 2019-03-05 19:30 | ED ---
Abdominal Pain HPI - General Chief Complaint: Abdominal Pain Stated Complaint: post op complications Time Seen by Provider: 03/05/19 18:00 Source: patient, RN notes reviewed, old records reviewed Mode of arrival: ambulatory Limitations: no limitations - History of Present Illness Initial Comments: Patient is a 73-year-old female, presents emergency Department today for reevaluation for an infected incision site from an abdominal wall hernia repair. Her surgeon is Dr. Montoya. She has been admitted to the hospital was discharged to [facility] rehab facility one week ago. She went today for a outpatient visit to Dr. Montoya's office and he told her to come here for concern for continued infection and will likely need to take the mesh out of the abdomen. I discussed the case with Dr. Mcfarlane, whom discussed with Dr. Montoya earlier today. Patient does not need a CT scan per Dr. Montoya. Patient denies any fever. She reports some dehiscence over the lower portion of her incision site and some minimal erythema and drainage. - Related Data Home Medications Medication Instructions Recorded Confirmed DULoxetine HCL [Cymbalta] 60 mg PO HS 12/14/16 02/19/19 Ergocalciferol (Vitamin D2) 50,000 unit PO COHEN 12/14/16 02/19/19 [Vitamin D2] Atorvastatin [Lipitor] 40 mg PO HS 01/24/18 02/19/19 Amiodarone [Cordarone] 100 mg PO AC-LUNCH 03/02/18 02/19/19 Furosemide [Lasix] 40 mg PO BID 03/02/18 02/19/19 Latanoprost/Pf [Latanoprost 0.005% 1 drop BOTH EYES HS 03/02/18 02/19/19 Eye Drop] Cilostazol [Pletal] 100 mg PO DAILY 11/15/18 02/19/19 Levothyroxine Sodium [Tirosint] 88 mcg PO DAILY 11/15/18 02/19/19 Losartan Potassium 100 mg PO DAILY 11/15/18 02/19/19 Metoprolol Tartrate [Lopressor] 50 mg PO BID 11/15/18 02/19/19 Potassium Chloride ER [K-Dur 20] 20 meq PO DAILY 11/15/18 02/19/19 amLODIPine [Norvasc] 10 mg PO DAILY 11/15/18 02/19/19 metFORMIN HCL [Glucophage] 500 mg PO BID 11/15/18 02/19/19 predniSONE 10 mg PO AC-LUNCH 11/15/18 02/19/19 Ondansetron [Zofran] 8 mg PO DAILY PRN 01/17/19 02/19/19 Loperamide [Imodium] 2 mg PO DAILY 02/19/19 02/19/19 Previous Rx's Medication Instructions Recorded Acetaminophen Tab [Tylenol Tab] 650 mg PO Q4H PRN #30 tablet 02/25/19 Piperacillin-Tazobactam [Zosyn] 3.375 gm IVPB Q8HR #42 bag 02/25/19 oxyCODONE ER [OxyCONTIN] 20 mg PO BID #10 tab 02/25/19 Allergies Allergy/AdvReac Type Severity Reaction Status Date / Time morphine Allergy Itching Verified 03/05/19 17:23 Review of Systems ROS Statement: Those systems with pertinent positive or pertinent negative responses have been documented in the HPI. ROS Other: All systems not noted in ROS Statement are negative. Past Medical History Past Medical History: Atrial Fibrillation, Coronary Artery Disease (CAD), Diabetes Mellitus, Hyperlipidemia, Hypertension, Memory Impairment, Osteoarthritis (OA), Thyroid Disorder, Vascular Disorder Additional Past Medical History / Comment(s): 01/18/19 incisional hernia repair- open with mesh and has drain, paroxysmal Afib, NIDDM type II, PAD, decreased circulation to R lower extremity-pt states had several unsuccessful attempts at placing artificial artery, bowel surgery d/t blood clot to colon post operatively, frequent diarrhea, urinary incontinence, chronic elevated WBC, chronic low back pain/pinched nerve, bilateral shoulder pain-DJD, "forgetful", hypothyroid, vertigo at times. History of Any Multi-Drug Resistant Organisms: ESBL Date of last positivie culture/infection: 03/04/18 MDRO Source:: BODY FLUID ASPIRATE Past Surgical History: Appendectomy, Bowel Resection, Breast Surgery, Cholecystectomy, Coronary Bypass/CABG, Heart Catheterization, Hernia Repair, Joint Replacement, Orthopedic Surgery Additional Past Surgical History / Comment(s): 01/18/19 incisional hernia repair- open with mesh, 12/11/17 CABG 4 vessel, 12/20/17 colectomy/ileostomy with reversal, R leg attempted bypasses with artificial artery which pt states were unsuccessful, L breast benign tumor removed, bilateral total knee arthroplasties, R rotator cuff repair, low back epidural injections, piccs-since removed. Past Anesthesia/Blood Transfusion Reactions: No Reported Reaction Additional Past Anesthesia/Blood Transfusion Reaction / Comment(s): Pt has recently received blood and also years ago received blood without reaction. Past Psychological History: Anxiety, Depression Smoking Status: Former smoker Past Alcohol Use History: None Reported Past Drug Use History: None Reported - Past Family History Mother Family Medical History: Cancer Additional Family Medical History / Comment(s): Uterine cancer. Father Family Medical History: Congestive Heart Failure (CHF) General Exam - General Exam Comments Initial Comments: 73-year-old female. Alert and oriented. No distress. Limitations: no limitations General appearance: alert, in no apparent distress Head exam: Present: atraumatic, normocephalic, normal inspection Eye exam: Present: normal appearance, PERRL, EOMI. Absent: scleral icterus, conjunctival injection, periorbital swelling ENT exam: Present: normal exam, mucous membranes moist Neck exam: Present: normal inspection. Absent: tenderness, meningismus, lymphadenopathy Respiratory exam: Present: normal lung sounds bilaterally. Absent: respiratory distress, wheezes, rales, rhonchi, stridor Cardiovascular Exam: Present: regular rate, normal rhythm, normal heart sounds. Absent: systolic murmur, diastolic murmur, rubs, gallop, clicks GI/Abdominal exam: Present: soft, normal bowel sounds, other (She has incision site over the mid abdomen, with some dehiscence over the lower portion with evidence of drainage and I believe that mesh is mildly visible.). Absent: distended, tenderness, guarding, rebound, rigid Extremities exam: Present: normal inspection, full ROM, normal capillary refill. Absent: tenderness, pedal edema, joint swelling, calf tenderness Back exam: Present: normal inspection Neurological exam: Present: alert, oriented X3, CN II-XII intact Psychiatric exam: Present: normal affect, normal mood Course Vital Signs 03/05/19 17:20 Temperature 97.9 F Pulse Rate 71 Respiratory 20 Rate Blood Pressure 120/40 O2 Sat by Pulse 99 Oximetry Medical Decision Making - Medical Decision Making Patient is a 73-year-old female who presents raise from today for reevaluation for continued incision site infection from abdominal wall hernia repair. Patient has some wound dehiscence and erythema. Some minimal drainage. We'll obtain blood cultures today, Patient has been on IV Zosyn for a midline. I discussed the case with Dr. Mcfarlane Patient is to be admitted, does not need a computed tomography scan at this time. Dr. Young is aware of the patient's case. Continue Zosyn at this time with consult to infectious disease. Disposition Clinical Impression: Failure of outpatient treatment, Surgical site infection Disposition: ADMITTED IP TO THIS HOSP Condition: Good Is patient prescribed a controlled substance at d/c from ED?: No Referrals: Diaz Alcala DO [Primary Care Provider] - 1-2 days Time of Disposition: 19:29
[2019-03-05] MEDS: KETOROLAC 30 MG/ML 1 ML VIAL IVP PRN (20:13)
[2019-03-05 20:49] LABS: Appearance,Urine Clear (Clear); Bilirubin,Urine Negative (Negative); Blood,Urine Negative (Negative); Color,Urine Light Yellow; Glucose,Urine (UA) Negative (Negative); Ketones,Urine Negative (Negative); Leukocyte Esterase,Urine Negative (Negative); Nitrite,Urine Negative (Negative); Protein,Urine Negative (Negative); Specific Gravity,Urine 1.009 (1.001-1.035); Urobilinogen,Urine 0.2 mg/dL (<2.0)
[2019-03-05 21:02] LABS: Anisocytosis Slight; Basophils # (A) 0.2 k/uL (0-0.2); Basophils % (A) 1 %; Eosinophils # (A) 0.1 k/uL (0-0.7); Eosinophils % (A) 1 %; HCT 32.2 % (34.0-46.0); Hypochromasia Slight; Lymphocytes # (A) 1.6 k/uL (1.0-4.8); Lymphocytes % (A) 11 %; MCH 24.4 pg (25.0-35.0); MCV 78.7 fL (80.0-100.0); Mean Platelet Volume 6.8; Microcytosis Slight; Monocytes # (A) 0.7 k/uL (0-1.0); Monocytes % (A) 5 %; Neutrophils # (A) 12.3 k/uL (1.3-7.7); Neutrophils % (A) 82 %; Platelet Count 527 k/uL (150-450); RDW 16.7 % (11.5-15.5)
[2019-03-05 21:07] LABS: Albumin 3.8 g/dL (3.5-5.0); Calcium 9.7 mg/dL (8.4-10.2); INR 0.9 (<1.2); Potassium 3.7 mmol/L (3.5-5.1); Prothrombin Time 9.5 sec (9.0-12.0); Total Bilirubin 0.3 mg/dL (0.2-1.3); Total Protein 6.3 g/dL (6.3-8.2)
[2019-03-05 21:30] LABS: Partial Thromboplastin Time 19.7 sec (22.0-30.0)
[2019-03-05 22:38] LABS: Glucose,Whole Blood 167 mg/dL (75-99)
[2019-03-05] MEDS: SODIUM CHLORIDE 0.9% 1,000 ML IV SCH (23:11)
[2019-03-06] MEDS: KETOROLAC 30 MG/ML 1 ML VIAL IVP PRN (04:55)
[2019-03-06] MEDS: HYDROmorphone 0.5 MG/0.5 ML SYRINGE IVP PRN ×4 (06:43→22:13)
[2019-03-06 07:10] LABS: Glucose,Whole Blood 134 mg/dL (75-99)
[2019-03-06] MEDS ORDERED: MAGNESIUM HYDROXIDE 2,400 MG/10 ML CUP PO PRN (08:46)
[2019-03-06] MEDS ORDERED: NA PHOS,M-B/NA PHOS,DI-BA 133 ML ENEMA RECTAL PRN (08:46)
[2019-03-06] MEDS: PANTOPRAZOLE 40 MG/10 ML VIAL IV SCH (08:52)
[2019-03-06] MEDS: SODIUM CHLORIDE 0.9% 1,000 ML IV SCH ×2 (08:52→17:35)
[2019-03-06] MEDS: PIPERACILLIN-TAZOBACTAM 3.375 GM in SODIUM CHLORIDE 0.9% 100 ML IVPB SCH ×2 (09:01→17:29)
--- NOTE | 2019-03-06 11:25 | P.GSHP ---
History of Present Illness H&P Date: 03/06/19 CHIEF COMPLAINT: Abdominal pain, nausea HISTORY OF PRESENT ILLNESS: 73-year-old female known surgical services from recent repair of incisional hernia performed on 01/18/[address] Montoya. Patient's course was completed by rectal sheath hemorrhage. Patient was recently hospitalized for abdominal pain and nausea. The patient was found to have elevated white count during that hospitalization and was placed on IV antibiotics. She was discharged to [facility] in stable condition. Patient was evaluated by Dr. Montoya outpatient at his office. She reports MASTER drain output has turned a brownish color with sediment over the past couple days. Dr. Domitila angeles referred the patient to the emergency room for further evaluation. PAST MEDICAL HISTORY: See list. PAST SURGICAL HISTORY: See list. SOCIAL HISTORY: No illicit drug use. REVIEW OF SYSTEMS: CONSTITUTIONAL: Denies fever or chills. HEENT: Denies blurred vision, vision changes, or eye pain. Denies hemoptysis CARDIOVASCULAR: Denies chest pain or pressure. RESPIRATORY: No shortness of breath. GASTROINTESTINAL: Refer to [facility] for pertinent findings HEMATOLOGIC: Denies bleeding disorders. GENITOURINARY: Denies any blood in urine. SKIN: Denies pruitis. Denies rash. PHYSICAL EXAM: VITAL SIGNS: Reviewed. GENERAL: Well-developed in no acute distress. HEENT: No sclera icterus. Extraocular movements grossly intact. Moist buccal mucosa. Head is atraumatic, normocephalic. ABDOMEN: Soft. Nondistended. Nontender. MASTER drain with brown/john drainage and sediment. Midline incision with small opening at distal end. No purulent drainage noted. NEUROLOGIC: Alert and oriented. Cranial nerves II through XII grossly intact. LABORATORY DATA: WBC 15.0. Hemoglobin 10.0. Platelet count 527. Sodium 135. Potassium 3.7. BUN 15. Creatinine 0.80. Glucose 332. Lactic acid 3.2 on admission. Repeat 2.6. ASSESSMENT: 1. History of recent incisional hernia repair, located by rectal sheath hemorrhage, December 2018 2. Suspected intra-abdominal abscess PLAN: 1. Nothing by mouth. Continue IV fluids 2. Dr. Lancaster, infectious disease, on consult 3. Monitor WBC. Continue IV antibiotics 4. Consult Dr. Dietz for medical management 5. Patient scheduled for removal of infected mesh today with Dr. Montoya. 6. Patient would like to return to [facility] at time of discharge Nurse practitioner note has been reviewed by physician. Signing provider agrees with the documented findings, assessment, and plan of care. Past Medical History Past Medical History: Atrial Fibrillation, Coronary Artery Disease (CAD), Diab etes Mellitus, Hyperlipidemia, Hypertension, Memory Impairment, Osteoarthritis (OA), Thyroid Disorder, Vascular Disorder Additional Past Medical History / Comment(s): 01/18/19 incisional hernia repair- open with mesh and has drain, paroxysmal Afib, NIDDM type II, PAD, decreased circulation to R lower extremity-pt states had several unsuccessful attempts at placing artificial artery, bowel surgery d/t blood clot to colon post operatively, frequent diarrhea, urinary incontinence, chronic elevated WBC, chronic low back pain/pinched nerve, bilateral shoulder pain-DJD, "forgetful", hypothyroid, vertigo at times. History of Any Multi-Drug Resistant Organisms: ESBL Date of last positivie culture/infection: 03/04/18 MDRO Source:: BODY FLUID ASPIRATE Past Surgical History: Appendectomy, Bowel Resection, Breast Surgery, Cholecystectomy, Coronary Bypass/CABG, Heart Catheterization, Hernia Repair, Joint Replacement, Orthopedic Surgery Additional Past Surgical History / Comment(s): 01/18/19 incisional hernia repair- open with mesh, 12/11/17 CABG 4 vessel, 12/20/17 colectomy/ileostomy with reversal, R leg attempted bypasses with artificial artery which pt states were unsuccessful, L breast benign tumor removed, bilateral total knee arthroplasties, R rotator cuff repair, low back epidural injections, piccs-since removed. Past Anesthesia/Blood Transfusion Reactions: No Reported Reaction Additional Past Anesthesia/Blood Transfusion Reaction / Comment(s): Pt has recently received blood and also years ago received blood without reaction. Past Psychological History: Anxiety, Depression Additional Psychological History / Comment(s): Pt lives with her spouse in [place] and they winter in [place]. She lately has been using a walker to ambulate d/t weakness, but normally uses a cane. She no longer drives d/t rotator cuff problems, her spouse drives. She is otherwise independent. Smoking Status: Former smoker Past Alcohol Use History: None Reported Additional Past Alcohol Use History / Comment(s): Pt started smoking in 1965 and quit in 2007. She was a ppd smoker. Past Drug Use History: None Reported - Past Family History Mother Family Medical History: Cancer Additional Family Medical History / Comment(s): Uterine cancer. Father Family Medical History: Congestive Heart Failure (CHF) Medications and Allergies Home Medications Medication Instructions Recorded Confirmed Type DULoxetine HCL [Cymbalta] 60 mg PO HS@209912/14/16 03/05/19 History Ergocalciferol (Vitamin D2) 50,000 unit PO COHEN 12/14/16 03/05/19 History [Vitamin D2] Atorvastatin [Lipitor] 40 mg PO HS@209901/24/18 03/05/19 History Amiodarone [Cordarone] 100 mg PO DAILY@0800 03/02/18 03/05/19 History Furosemide [Lasix] 40 mg PO BID@0800,1700 03/02/18 03/05/19 History Latanoprost/Pf [Latanoprost 0.005% 1 drop BOTH EYES HS@209903/02/18 03/05/19 History Eye Drop] Cilostazol [Pletal] 100 mg PO DAILY@0800 11/15/18 03/05/19 History Losartan Potassium 100 mg PO DAILY@0800 11/15/18 03/05/19 History Metoprolol Tartrate [Lopressor] 50 mg PO BID@0800,1700 11/15/18 03/05/19 History Potassium Chloride ER [K-Dur 20] 20 meq PO DIRECTED 11/15/18 03/05/19 History amLODIPine [Norvasc] 10 mg PO DAILY@0800 11/15/18 03/05/19 History metFORMIN HCL [Glucophage] 500 mg PO BID@0800,1700 11/15/18 03/05/19 History Loperamide [Imodium] 2 mg PO BID@0800,1700 02/19/19 03/05/19 History Ensure Clear 1 can PO TID@0800,1200,1700 03/05/19 03/05/19 History L.acidoph,Paracasei, B.lactis 1 cap PO DAILY@1700 03/05/19 03/05/19 History [Probiotic] Levothyroxine Sodium [Synthroid] 88 mcg PO DAILY@0600 03/05/19 03/05/19 History Magnesium Hydroxide [Milk of 2,400 mg PO DAILY PRN 03/05/19 03/05/19 History Magnesia] Na Phos,M-B/Na Phos,Di-Ba [Fleet 133 ml RECTAL DAILY PRN 03/05/19 03/05/19 History Adult] Ondansetron HCl [Zofran] 8 mg PO DAILY PRN 03/05/19 03/05/19 History Piperacillin-Tazobactam [Zosyn] 3.375 gm IVPB Q8H 03/05/19 03/05/19 History Potassium Chloride ER [K-Dur 20] 40 meq PO ONCE 03/05/19 03/05/19 History oxyCODONE ER [OxyCONTIN] 20 mg PO BID@0800,2100 03/05/19 03/05/19 History predniSONE 10 mg PO DAILY@0800 03/05/19 03/05/19 History Allergies Allergy/AdvReac Type Severity Reaction Status Date / Time morphine AdvReac Intermediate Itching Verified 03/05/19 19:59 Surgical - Exam Vital Signs Temp Pulse Resp BP Pulse Ox 97.9 F 71 20 120/40 99 03/05/19 17:20 03/05/19 17:20 03/05/19 17:20 03/05/19 17:20 03/05/19 17:20 Results - Labs 03/05/19 20:50 03/05/19 20:50 Abnormal Lab Results - Last 24 Hours (Table) 03/05/19 03/05/19 03/05/19 Range/Units 20:50 20:50 20:50 WBC 15.0 H (3.8-10.6) k/uL Hgb 10.0 L (11.4-16.0) gm/dL Hct 32.2 L (34.0-46.0) % MCV 78.7 L (80.0-100.0) fL MCH 24.4 L (25.0-35.0) pg RDW 16.7 H (11.5-15.5) % Plt Count 527 H (150-450) k/uL Neutrophils # 12.3 H (1.3-7.7) k/uL APTT 19.7 L (22.0-30.0) sec Sodium 135 L (137-145) mmol/L Chloride 96 L (98-107) mmol/L Glucose 332 H (74-99) mg/dL POC Glucose (mg/dL) (75-99) mg/dL Plasma Lactic Acid Frederick (0.7-2.0) mmol/L Alkaline Phosphatase 137 H (38-126) U/L 03/05/19 03/05/19 03/06/19 Range/Units 20:50 22:35 00:36 WBC (3.8-10.6) k/uL Hgb (11.4-16.0) gm/dL Hct (34.0-46.0) % MCV (80.0-100.0) fL MCH (25.0-35.0) pg RDW (11.5-15.5) % Plt Count (150-450) k/uL Neutrophils # (1.3-7.7) k/uL APTT (22.0-30.0) sec Sodium (137-145) mmol/L Chloride (98-107) mmol/L Glucose (74-99) mg/dL POC Glucose (mg/dL) 167 H (75-99) mg/dL Plasma Lactic Acid Frederick 3.2 H* 3.4 H* (0.7-2.0) mmol/L Alkaline Phosphatase (38-126) U/L 03/06/19 03/06/19 03/06/19 Range/Units 04:57 07:00 08:30 WBC (3.8-10.6) k/uL Hgb (11.4-16.0) gm/dL Hct (34.0-46.0) % MCV (80.0-100.0) fL MCH (25.0-35.0) pg RDW (11.5-15.5) % Plt Count (150-450) k/uL Neutrophils # (1.3-7.7) k/uL APTT (22.0-30.0) sec Sodium (137-145) mmol/L Chloride (98-107) mmol/L Glucose (74-99) mg/dL POC Glucose (mg/dL) 134 H (75-99) mg/dL Plasma Lactic Acid Frederick 2.6 H* 2.1 H* (0.7-2.0) mmol/L Alkaline Phosphatase (38-126) U/L Microbiology - Last 24 Hours (Table) 03/05/19 14:36 Gram Stain - Preliminary Abdomen Wound Culture - Preliminary Diabetes panel 03/05/19 Range/Units 20:50 Sodium 135 L (137-145) mmol/L Potassium 3.7 (3.5-5.1) mmol/L Chloride 96 L (98-107) mmol/L Carbon Dioxide 28 (22-30) mmol/L BUN 15 (7-17) mg/dL Creatinine 0.80 (0.52-1.04) mg/dL Glucose 332 H (74-99) mg/dL Calcium 9.7 (8.4-10.2) mg/dL AST 22 (14-36) U/L ALT 18 (9-52) U/L Alkaline Phosphatase 137 H (38-126) U/L Total Protein 6.3 (6.3-8.2) g/dL Albumin 3.8 (3.5-5.0) g/dL Calcium panel 03/05/19 Range/Units 20:50 Calcium 9.7 (8.4-10.2) mg/dL Albumin 3.8 (3.5-5.0) g/dL Pituitary panel 03/05/19 Range/Units 20:50 Sodium 135 L (137-145) mmol/L Potassium 3.7 (3.5-5.1) mmol/L Chloride 96 L (98-107) mmol/L Carbon Dioxide 28 (22-30) mmol/L BUN 15 (7-17) mg/dL Creatinine 0.80 (0.52-1.04) mg/dL Glucose 332 H (74-99) mg/dL Calcium 9.7 (8.4-10.2) mg/dL Adrenal panel 03/05/19 Range/Units 20:50 Sodium 135 L (137-145) mmol/L Potassium 3.7 (3.5-5.1) mmol/L Chloride 96 L (98-107) mmol/L Carbon Dioxide 28 (22-30) mmol/L BUN 15 (7-17) mg/dL Creatinine 0.80 (0.52-1.04) mg/dL Glucose 332 H (74-99) mg/dL Calcium 9.7 (8.4-10.2) mg/dL Total Bilirubin 0.3 (0.2-1.3) mg/dL AST 22 (14-36) U/L ALT 18 (9-52) U/L Alkaline Phosphatase 137 H (38-126) U/L Total Protein 6.3 (6.3-8.2) g/dL Albumin 3.8 (3.5-5.0) g/dL
[2019-03-06 11:59] LABS: Glucose,Whole Blood 134 mg/dL (75-99)
[2019-03-06] MEDS: INSULIN ASPART (NovoLOG) 100 UNIT/ML VIAL SQ SCH ×3 (12:07→23:32)
[2019-03-06 14:33] LABS: Glucose,Whole Blood 144 mg/dL (75-99)
[2019-03-06] MEDS ORDERED: IV FLUID CONTINUATION 1,000 ML IV ONE (14:35)
[2019-03-06] MEDS: METOPROLOL TARTRATE 50 MG TAB PO SCH (14:48)
[2019-03-06] MEDS ORDERED: PROPOFOL 10 MG/ML 20 ML VIAL IV ONE (15:41)
[2019-03-06] MEDS ORDERED: LIDOCAINE 1% INJ 10MG/ML (20 ML MDV) ONE (15:41)
[2019-03-06] MEDS ORDERED: GLYCOPYRROLATE 0.2 MG/ML 2 ML VIAL ONE (15:41)
[2019-03-06] MEDS ORDERED: fentaNYL (PF) 50 MCG/ML 2 ML AMP ONE (15:41)
[2019-03-06] MEDS ORDERED: SUCCINYLCHOLINE CHLORIDE 100 MG/5 ML SYR IV ONE (15:41)
[2019-03-06] MEDS ORDERED: NEOSTIGMINE 1 MG/ML 10 ML VIAL ONE (15:41)
[2019-03-06] MEDS ORDERED: ROCURONIUM BROMIDE 10 MG/ML 10 ML VIAL IV ONE (15:41)
--- NOTE | 2019-03-06 16:42 | P.OP ---
Date of Procedure: 03/06/19 Preoperative Diagnosis: Infected mesh Postoperative Diagnosis: Infected mesh Procedure(s) Performed: Excision of infected mesh Anesthesia: SHARON Surgeon: Christopher Montoya Estimated Blood Loss (ml): 20 Pathology: other (Wound culture, tissue culture) Condition: stable Disposition: PACU Description of Procedure: The patient's placed on the operative table in the supine position. She received a general anesthesia. Her abdomen was prepped and draped in usual sterile fashion. The skin was entered through a midline incision. The subcutaneous fat was divided. The peritoneum evidence of mesh infection. The wound was cultured. A portion of the mesh was sent for culture as well as a small piece of for tissue culture. The mesh was partially free-flowing. The mesh was grasper Lizzy clamps and then dissected free off the fascia. There appeared to be no evidence of any recurrent hernias. The bones using hemostasis. The wound was packed with 6 inch Kerlix. With wet-to-dry Betadine dressing. Patient top she will was sent to recovery room stable condition.
[2019-03-06 16:47] LABS: Glucose,Whole Blood 153 mg/dL (75-99)
[2019-03-06 17:28] LABS: Glucose,Whole Blood 176 mg/dL (75-99)
[2019-03-06] MEDS: FUROSEMIDE 40 MG TAB PO SCH (17:34)
[2019-03-06] MEDS: HEPARIN SODIUM,PORCINE 5,000 UNIT/ML 1 ML VIAL SQ SCH (17:34)
[2019-03-06 20:55] LABS: Glucose,Whole Blood 247 mg/dL (75-99)
--- NOTE | 2019-03-06 21:28 | P.CONS ---
History of Present Illness - Reason for Consult Consult date: 03/06/19 Medical management Requesting physician: Christopher Montoya - Chief Complaint Abdominal discomfort - History of Present Illness History of presenting complaint: This is a pleasant 73-year-old patient of Dr. Alcala. Chronic stable medical conditions include atrial fibrillation, coronary artery disease, diabetes, hyperlipidemia, hypertension, Randy arthritis, hypothyroid, peripheral arterial disease. Patient and December 2017 had a "coronary bypass for ischemic bowel resulting in the ostomy and a wound VAC. Patient subsequently had intra- abdominal abscess and required protracted course of antibiotics. Back in March 2018 had an abscess and patient did have a MASTER drain in place for the same. And December of this year patient had the incisional hernia with mesh placed. By Dr. Montoya. Patient does have significant bleeding from a MASTER drain. Continues to have a MASTER drain in place. Patient was recently in the hospital from 02/20/2019 through February 27. Patient is still putting a significant amount from a MASTER drain A nausea vomiting. Had elevated white count. Patient was seen by Dr. Lancaster from [place]. Was put on antibiotics and discharged on the same. Patient presented to Dr. Montoya's office. Having significant drainage through the MASTER drain. The drainage had become more purulent. Also having some diarrhea off and on for few days. No fever no chills. Having nausea. Appetite has been okay. Has been having sharp abdominal pain and discomfort. Dr. Montoya decided to take the abdominal mesh out today. Will be done this afternoon. Also has been some drainage from the lower part of the abdominal incision which is opened up about 2 cm Review of systems: GEN.: Weak and tired EYES: None HEENT: None NECK: None RESPIRATORY: None CARDIOVASCULAR: None GASTROINTESTINAL: As above GENITOURINARY: None MUSCULOSKELETAL: Pain in the joints, muscle weakness LYMPHATICS: None HEMATOLOGICAL: None PSYCHIATRY: None NEUROLOGICAL: None Past medical history: Coronary artery disease with bypass, acute ischemic bowel with perforation, paroxysmal atrial fibrillation, peripheral artery disease, hypothyroid, diabetes mellitus type 2, chronic low back pain from arthritis, depression, hyperlipidemia, hypertension, recurrent intra-abdominal abscess Social history: Smoked a pack a day for 43 years. Stopped in 2007 alcohol rarely. Family history: Uterine cancer Physical examination: VITAL SIGNS: 97.9, 71, 20, 120/40, 99% room air-upon presentation GENERAL: BMI 32.4, laying in bed tired. EYES: Pupils equal. Conjunctiva pale HEENT: External appearance of nose and ears normal, oral cavity grossly normal. NECK: JVD not raised; masses not palpable. HEART: First and second heart sounds are normal; some edema. LUNGS: Respiratory rate normal; decreased breath sounds. ABDOMEN: Soft, mild tender, liver spleen not palpable, small opening of the lower abdominal incisions, liver spleen not palpable, no masses palpable. MASTER drain with purulent drainage PSYCH: Alert and oriented x3; mood and affect normal. NEUROLOGICAL: Cranial nerves grossly intact; no facial asymmetry, power and sensation grossly intact. LYMPHATICS: No lymph nodes palpable in the axilla and neck INVESTIGATIONS, reviewed in the clinical context: White count 15 hemoglobin 10 platelets 527 potassium 3.7 creatinine 0.80 lactic acid 3.2 Assessment: -. Acute purulent drainage through the abdominal MASTER drain which has been present for quite some time. Suspect intra-abdominal infection -Plan is for surgical removal of the intra-abdominal mesh, the baby a source of infections -Coronary artery disease per prior history of bypass -Paroxysmal atrial fibrillation -Peripheral artery disease -Hypothyroid -Diabetes mellitus type 2 on oral hypoglycemic -Lumbar osteoarthritis -Hyperlipidemia -Essential hypertension -History of bowel perforation recurrent intra-abdominal abscess -Obesity BMI 32.8 Plan: Home medications resumed. Patient due to go down to the or the soft. Patient is and IV Zosyn. Care was discussed with the patient. Questions were answered. Dr. Lancaster from [place] was also consulted. Past Medical History Past Medical History: Atrial Fibrillation, Coronary Artery Disease (CAD), Diabetes Mellitus, Hyperlipidemia, Hypertension, Memory Impairment, Osteoarthritis (OA), Thyroid Disorder, Vascular Disorder Additional Past Medical History / Comment(s): 01/18/19 incisional hernia repair- open with mesh and has drain, paroxysmal Afib, NIDDM type II, PAD, decreased circulation to R lower extremity-pt states had several unsuccessful attempts at placing artificial artery, bowel surgery d/t blood clot to colon post operatively, frequent diarrhea, urinary incontinence, chronic elevated WBC, chronic low back pain/pinched nerve, bilateral shoulder pain-DJD, "forgetful", hypothyroid, vertigo at times. History of Any Multi-Drug Resistant Organisms: ESBL Year Discovered:: 03/04/18 MDRO Source:: BODY FLUID ASPIRATE Past Surgical History: Appendectomy, Bowel Resection, Breast Surgery, Cholecystectomy, Coronary Bypass/CABG, Heart Catheterization, Hernia Repair, Joint Replacement, Orthopedic Surgery Additional Past Surgical History / Comment(s): 01/18/19 incisional hernia repair- open with mesh, 12/11/17 CABG 4 vessel, 12/20/17 colectomy/ileostomy with reversal, R leg attempted bypasses with artificial artery which pt states were unsuccessful, L breast benign tumor removed, bilateral total knee arthroplasties, R rotator cuff repair, low back epidural injections, piccs-since removed. Past Anesthesia/Blood Transfusion Reactions: No Reported Reaction Additional Past Anesthesia/Blood Transfusion Reaction / Comm: Pt has recently received blood and also years ago received blood without reaction. Past Psychological History: Anxiety, Depression Additional Psychological History / Comment(s): Pt lives with her spouse in [place] and they winter in [place]. She lately has been using a walker to ambulate d/t weakness, but normally uses a cane. She no longer drives d/t rotator cuff problems, her spouse drives. She is otherwise independent. Smoking Status: Former smoker Past Alcohol Use History: None Reported Additional Past Alcohol Use History / Comment(s): Pt started smoking in 1964 and quit in 2007. She was a ppd smoker. Past Drug Use History: None Reported - Past Family History Mother Family Medical History: Cancer Additional Family Medical History / Comment(s): Uterine cancer. Father Family Medical History: Congestive Heart Failure (CHF) Medications and Allergies Home Medications Medication Instructions Recorded Confirmed Type DULoxetine HCL [Cymbalta] 60 mg PO HS@2100 12/14/16 03/05/19 History Ergocalciferol (Vitamin D2) 50,000 unit PO COHEN 12/14/16 03/05/19 History [Vitamin D2] Atorvastatin [Lipitor] 40 mg PO HS@2100 01/24/18 03/05/19 History Amiodarone [Cordarone] 100 mg PO DAILY@0800 03/02/18 03/05/19 History Furosemide [Lasix] 40 mg PO BID@0800,1700 03/02/18 03/05/19 History Latanoprost/Pf [Latanoprost 0.005% 1 drop BOTH EYES HS@209903/02/18 03/05/19 History Eye Drop] Cilostazol [Pletal] 100 mg PO DAILY@0800 11/15/18 03/05/19 History Losartan Potassium 100 mg PO DAILY@0800 11/15/18 03/05/19 History Metoprolol Tartrate [Lopressor] 50 mg PO BID@0800,1700 11/15/18 03/05/19 History Potassium Chloride ER [K-Dur 20] 20 meq PO DIRECTED 11/15/18 03/05/19 History amLODIPine [Norvasc] 10 mg PO DAILY@0800 11/15/18 03/05/19 History metFORMIN HCL [Glucophage] 500 mg PO BID@0800,1700 11/15/18 03/05/19 History Loperamide [Imodium] 2 mg PO BID@0800,1700 02/19/19 03/05/19 History Ensure Clear 1 can PO TID@0800,1200,1700 03/05/19 03/05/19 History L.acidoph,Paracasei, B.lactis 1 cap PO DAILY@1700 03/05/19 03/05/19 History [Probiotic] Levothyroxine Sodium [Synthroid] 88 mcg PO DAILY@0600 03/05/19 03/05/19 History Magnesium Hydroxide [Milk of 2,400 mg PO DAILY PRN 03/05/19 03/05/19 History Magnesia] Na Phos,M-B/Na Phos,Di-Ba [Fleet 133 ml RECTAL DAILY PRN 03/05/19 03/05/19 History Adult] Ondansetron HCl [Zofran] 8 mg PO DAILY PRN 03/05/19 03/05/19 History Piperacillin-Tazobactam [Zosyn] 3.375 gm IVPB Q8H 03/05/19 03/05/19 History Potassium Chloride ER [K-Dur 20] 40 meq PO ONCE 03/05/19 03/05/19 History oxyCODONE ER [OxyCONTIN] 20 mg PO BID@0800,2100 03/05/19 03/05/19 History predniSONE 10 mg PO DAILY@0800 03/05/19 03/05/19 History Allergies Allergy/AdvReac Type Severity Reaction Status Date / Time morphine AdvReac Intermediate Itching Verified 03/05/19 19:59 Physical Exam Vitals: Vital Signs Temp Pulse Pulse Resp BP BP BP 03/06/19 04:34 98.2 F 76 16 127/77 03/05/19 23:00 98.0 F 75 12 134/71 03/05/19 21:48 98.5 F 82 18 109/59 03/05/19 20:17 76 18 142/80 03/05/19 17:20 97.9 F 71 20 120/40 Pulse Ox 03/06/19 04:34 99 03/05/19 23:00 100 03/05/19 21:48 97 03/05/19 20:17 97 03/05/19 17:20 99 Intake and Output 03/05/19 03/06/19 03/06/19 22:59 06:59 14:59 Output Total 80 Balance -80 Output: Drainage 80 Right Abdomen 80 Other: Voiding Method Toilet Toilet Diaper Diaper Incontinent Incontinent # Voids 3 Weight 83.007 kg Results CBC & Chem 7: 03/05/19 20:50 03/05/19 20:50 Labs: Abnormal Lab Results - Last 24 Hours (Table) 03/05/19 03/05/19 03/05/19 Range/Units 20:50 20:50 20:50 WBC 15.0 H (3.8-10.6) k/uL Hgb 10.0 L (11.4-16.0) gm/dL Hct 32.2 L (34.0-46.0) % MCV 78.7 L (80.0-100.0) fL MCH 24.4 L (25.0-35.0) pg RDW 16.7 H (11.5-15.5) % Plt Count 527 H (150-450) k/uL Neutrophils # 12.3 H (1.3-7.7) k/uL APTT 19.7 L (22.0-30.0) sec Sodium 135 L (137-145) mmol/L Chloride 96 L (98-107) mmol/L Glucose 332 H (74-99) mg/dL POC Glucose (mg/dL) (75-99) mg/dL Plasma Lactic Acid Frederick (0.7-2.0) mmol/L Alkaline Phosphatase 137 H (38-126) U/L 03/05/19 03/05/19 03/06/19 Range/Units 20:50 22:35 00:36 WBC (3.8-10.6) k/uL Hgb (11.4-16.0) gm/dL Hct (34.0-46.0) % MCV (80.0-100.0) fL MCH (25.0-35.0) pg RDW (11.5-15.5) % Plt Count (150-450) k/uL Neutrophils # (1.3-7.7) k/uL APTT (22.0-30.0) sec Sodium (137-145) mmol/L Chloride (98-107) mmol/L Glucose (74-99) mg/dL POC Glucose (mg/dL) 167 H (75-99) mg/dL Plasma Lactic Acid Frederick 3.2 H* 3.4 H* (0.7-2.0) mmol/L Alkaline Phosphatase (38-126) U/L 03/06/19 03/06/19 03/06/19 Range/Units 04:57 07:00 08:30 WBC (3.8-10.6) k/uL Hgb (11.4-16.0) gm/dL Hct (34.0-46.0) % MCV (80.0-100.0) fL MCH (25.0-35.0) pg RDW (11.5-15.5) % Plt Count (150-450) k/uL Neutrophils # (1.3-7.7) k/uL APTT (22.0-30.0) sec Sodium (137-145) mmol/L Chloride (98-107) mmol/L Glucose (74-99) mg/dL POC Glucose (mg/dL) 134 H (75-99) mg/dL Plasma Lactic Acid Frederick 2.6 H* 2.1 H* (0.7-2.0) mmol/L Alkaline Phosphatase (38-126) U/L Microbiology - Last 24 Hours (Table) 03/05/19 14:36 Gram Stain - Preliminary Abdomen Wound Culture - Preliminary
[2019-03-06] MEDS: ATORVASTATIN 40 MG TAB PO SCH (23:31)
[2019-03-06] MEDS: oxyCODONE ER 20 MG TAB.ER.12H PO SCH (23:31)
[2019-03-06] MEDS: DULoxetine HCL 60 MG CAPSULE.DR PO SCH (23:32)
[2019-03-06] MEDS: LATANOPROST 0.005% OPHTH DROPS 2.5 ML BTL BOTH EYES SCH (23:33)
[2019-03-07] MEDS: HEPARIN SODIUM,PORCINE 5,000 UNIT/ML 1 ML VIAL SQ SCH ×3 (00:16→15:00)
[2019-03-07] MEDS: ONDANSETRON 4 MG/2 ML VIAL IVP PRN ×2 (00:27→17:35)
[2019-03-07] MEDS: HYDROmorphone 0.5 MG/0.5 ML SYRINGE IVP PRN ×3 (00:27→17:35)
[2019-03-07] MEDS: PIPERACILLIN-TAZOBACTAM 3.375 GM in SODIUM CHLORIDE 0.9% 100 ML IVPB SCH ×2 (00:27→08:04)
[2019-03-07 04:37] LABS: Anisocytosis Slight; Basophils # (A) 0.3 k/uL (0-0.2); Basophils % (A) 1 %; Eosinophils # (A) 0.1 k/uL (0-0.7); Eosinophils % (A) 0 %; HCT 23.1 % (34.0-46.0); Hypochromasia Marked; Lymphocytes # (A) 1.4 k/uL (1.0-4.8); Lymphocytes % (A) 7 %; MCH 24.6 pg (25.0-35.0); MCHC 30.5 g/dL (31.0-37.0); MCV 80.9 fL (80.0-100.0); Mean Platelet Volume 6.6; Monocytes % (A) 5 %; Neutrophils % (A) 86 %; Platelet Count 491 k/uL (150-450); RBC 2.86 m/uL (3.80-5.40); RDW 17.1 % (11.5-15.5); WBC 20.9 k/uL (3.8-10.6)
[2019-03-07] MEDS: SODIUM CHLORIDE 0.9% 1,000 ML IV SCH ×3 (05:33→21:12)
[2019-03-07] MEDS: LEVOTHYROXINE 88 MCG TAB PO SCH (06:22)
[2019-03-07 07:48] LABS: Glucose,Whole Blood 209 mg/dL (75-99)
[2019-03-07] MEDS: LOSARTAN 50 MG TAB PO SCH (08:01)
[2019-03-07] MEDS: amLODIPine 10 MG TAB PO SCH (08:01)
[2019-03-07] MEDS: METOPROLOL TARTRATE 50 MG TAB PO SCH ×2 (08:02→16:27)
[2019-03-07] MEDS: FUROSEMIDE 40 MG TAB PO SCH ×2 (08:03→16:27)
[2019-03-07] MEDS: AMIODARONE 100 MG TAB PO SCH (08:03)
[2019-03-07] MEDS: PANTOPRAZOLE 40 MG/10 ML VIAL IV SCH (08:03)
[2019-03-07] MEDS: oxyCODONE ER 20 MG TAB.ER.12H PO SCH ×2 (08:03→21:10)
[2019-03-07] MEDS: INSULIN ASPART (NovoLOG) 100 UNIT/ML VIAL SQ SCH ×4 (08:04→21:13)
--- NOTE | 2019-03-07 08:15 | P.CONS ---
History of Present Illness - Reason for Consult Consult date: 03/06/19 mesh infection Requesting physician: Christopher Montoya - Chief Complaint Purulent drainage from the MASTER and nonhealing lower abdominal wound x week - History of Present Illness She patient is a 73 year old female who recently did have repair of abdominal hernia with mesh patient postop course was complicated by development of hematoma with significant bloody drainage through her JPs, patient was treated with empiric antibiotic therapy at that time subsequently the admission to the hospital in this patient who did have significant nausea vomiting and abdominal discomfort at that point repeat CT did show some fluid collection but has decreased in size and was being drained through the MASTER that the patient has the patient was treated with IV Zosyn and did have overall improvement symptomatically as well as resolution of her leukocytosis blood culture were n egative patient did get the midline and was advised a two-week course of IV Zosyn and the patient was currently getting patient did have a follow-up with the surgeon yesterday she was noticed to have a purulent drainage from her MASTER drain and did have a small wound in the lower end of her incision which was not healing subsequent the patient has been admitted hospital with concern for mesh infection and removal of the same patient denies any fever or chills she said complain of some feeling nauseated with occasional vomiting however denies having any diarrhea while the leaking lower abdominal pain intensity to 3 out of 10 and no radiation patient scheduled for surgery this afternoon Review of Systems Positive point has been mentioned in the HPI rest of the systems are negative Past Medical History Past Medical History: Atrial Fibrillation, Coronary Artery Disease (CAD), Diabetes Mellitus, Hyperlipidemia, Hypertension, Memory Impairment, Osteoarthritis (OA), Thyroid Disorder, Vascular Disorder Additional Past Medical History / Comment(s): 01/18/19 incisional hernia repair- open with mesh and has drain, paroxysmal Afib, NIDDM type II, PAD, decreased circulation to R lower extremity-pt states had several unsuccessful attempts at placing artificial artery, bowel surgery d/t blood clot to colon post operatively, frequent diarrhea, urinary incontinence, chronic elevated WBC, chronic low back pain/pinched nerve, bilateral shoulder pain-DJD, "forgetful", hypothyroid, vertigo at times. History of Any Multi-Drug Resistant Organisms: ESBL Year Discovered:: 03/04/18 MDRO Source:: BODY FLUID ASPIRATE Past Surgical History: Appendectomy, Bowel Resection, Breast Surgery, Cholecystectomy, Coronary Bypass/CABG, Heart Catheterization, Hernia Repair, Joint Replacement, Orthopedic Surgery Additional Past Surgical History / Comment(s): 01/18/19 incisional hernia repair-open with mesh, 12/11/17 CABG 4 vessel, 12/20/17 colectomy/ileostomy with reversal, R leg attempted bypasses with artificial artery which pt states were unsuccessful, L breast benign tumor removed, bilateral total knee arthroplasties, R rotator cuff repair, low back epidural injections, piccs-since removed. Past Anesthesia/Blood Transfusion Reactions: No Reported Reaction Additional Past Anesthesia/Blood Transfusion Reaction / Comm: Pt has recently re ceived blood and also years ago received blood without reaction. Past Psychological History: Anxiety, Depression Additional Psychological History / Comment(s): Pt lives with her spouse in [place] and they winter in [place]. She lately has been using a walker to ambulate d/t weakness, but normally uses a cane. She no longer drives d/t rotator cuff problems, her spouse drives. She is otherwise independent. Smoking Status: Former smoker Past Alcohol Use History: None Reported Additional Past Alcohol Use History / Comment(s): Pt started smoking in 1964 and quit in 2007. She was a ppd smoker. Past Drug Use History: None Reported - Past Family History Mother Family Medical History: Cancer Additional Family Medical History / Comment(s): Uterine cancer. Father Family Medical History: Congestive Heart Failure (CHF) Medications and Allergies Home Medications Medication Instructions Recorded Confirmed Type DULoxetine HCL [Cymbalta] 60 mg PO HS@209912/14/16 03/05/19 History Ergocalciferol (Vitamin D2) 50,000 unit PO COHEN 12/14/16 03/05/19 History [Vitamin D2] Atorvastatin [Lipitor] 40 mg PO HS@2100 01/24/18 03/05/19 History Amiodarone [Cordarone] 100 mg PO DAILY@0800 03/02/18 03/05/19 History Furosemide [Lasix] 40 mg PO BID@0800,1700 03/02/18 03/05/19 History Latanoprost/Pf [Latanoprost 0.005% 1 drop BOTH EYES HS@209903/02/18 03/05/19 History Eye Drop] Cilostazol [Pletal] 100 mg PO DAILY@0800 11/15/18 03/05/19 History Losartan Potassium 100 mg PO DAILY@0800 11/15/18 03/05/19 History Metoprolol Tartrate [Lopressor] 50 mg PO BID@0800,1700 11/15/18 03/05/19 History Potassium Chloride ER [K-Dur 20] 20 meq PO DIRECTED 11/15/18 03/05/19 History amLODIPine [Norvasc] 10 mg PO DAILY@0800 11/15/18 03/05/19 History metFORMIN HCL [Glucophage] 500 mg PO BID@0800,1700 11/15/18 03/05/19 History Loperamide [Imodium] 2 mg PO BID@0800,1700 02/19/19 03/05/19 History Ensure Clear 1 can PO TID@0800,1200,1700 03/05/19 03/05/19 History L.acidoph,Paracasei, B.lactis 1 cap PO DAILY@1700 03/05/19 03/05/19 History [Probiotic] Levothyroxine Sodium [Synthroid] 88 mcg PO DAILY@0600 03/05/19 03/05/19 History Magnesium Hydroxide [Milk of 2,400 mg PO DAILY PRN 03/05/19 03/05/19 History Magnesia] Na Phos,M-B/Na Phos,Di-Ba [Fleet 133 ml RECTAL DAILY PRN 03/05/19 03/05/19 History Adult] Ondansetron HCl [Zofran] 8 mg PO DAILY PRN 03/05/19 03/05/19 History Piperacillin-Tazobactam [Zosyn] 3.375 gm IVPB Q8H 03/05/19 03/05/19 History Potassium Chloride ER [K-Dur 20] 40 meq PO ONCE 03/05/19 03/05/19 History oxyCODONE ER [OxyCONTIN] 20 mg PO BID@0800,2100 03/05/19 03/05/19 History predniSONE 10 mg PO DAILY@0800 03/05/19 03/05/19 History Allergies Allergy/AdvReac Type Severity Reaction Status Date / Time morphine AdvReac Intermediate Itching Verified 03/05/19 19:59 Physical Exam Vitals: Vital Signs Temp Pulse Pulse Resp BP BP BP 03/06/19 04:34 98.2 F 76 16 127/77 11/05/19 23:00 98.0 F 75 12 134/71 03/05/19 21:48 98.5 F 82 18 109/59 03/05/19 20:17 76 18 142/80 03/05/19 17:20 97.9 F 71 20 120/40 Pulse Ox 03/06/19 04:34 99 03/05/19 23:00 100 03/05/19 21:48 97 03/05/19 20:17 97 03/05/19 17:20 99 Intake and Output 03/05/19 03/06/19 03/06/19 22:59 06:59 14:59 Output Total 80 Balance -80 Output: Drainage 80 Right Abdomen 80 Other: Voiding Method Toilet Toilet Diaper Diaper Incontinent Incontinent # Voids 3 Weight 83.007 kg GENERAL DESCRIPTION: Elderly female she lying in bed, no distress. No tachypnea or accessory muscle of respiration use. HEENT: Shows Pallor , no scleral icterus. Oral mucous membrane is dry. No pharyngeal erythema or thrush NECK: Trachea central, no thyromegaly. LUNGS: Unlabored breathing. Clear to auscultation anteriorly. No wheeze or crackle. HEART: S1, S2, regular rate and rhythm. No loud murmur ABDOMEN: Soft, small wound lower end of the incision with no significant slough tissue or erythema ,no tenderness , guarding or rigidity, no organomegaly Purulent drainage through the MASTER drain EXTREMITIES: No edema of feet. SKIN: No rash, no masses palpable. NEUROLOGICAL: The patient is awake, alert, oriented x3, mood and affect normal. Results CBC & Chem 7: 03/07/19 04:16 03/05/19 20:50 Labs: Abnormal Lab Results - Last 24 Hours (Table) 03/05/19 03/05/19 03/05/19 Range/Units 20:50 20:50 20:50 WBC 15.0 H (3.8-10.6) k/uL Hgb 10.0 L (11.4-16.0) gm/dL Hct 32.2 L (34.0-46.0) % MCV 78.7 L (80.0-100.0) fL MCH 24.4 L (25.0-35.0) pg RDW 16.7 H (11.5-15.5) % Plt Count 527 H (150-450) k/uL Neutrophils # 12.3 H (1.3-7.7) k/uL APTT 19.7 L (22.0-30.0) sec Sodium 135 L (137-145) mmol/L Chloride 96 L (98-107) mmol/L Glucose 332 H (74-99) mg/dL POC Glucose (mg/dL) (75-99) mg/dL Plasma Lactic Acid Frederick (0.7-2.0) mmol/L Alkaline Phosphatase 137 H (38-126) U/L 03/05/19 03/05/19 03/06/19 Range/Units 20:50 22:35 00:36 WBC (3.8-10.6) k/uL Hgb (11.4-16.0) gm/dL Hct (34.0-46.0) % MCV (80.0-100.0) fL MCH (25.0-35.0) pg RDW (11.5-15.5) % Plt Count (150-450) k/uL Neutrophils # (1.3-7.7) k/uL APTT (22.0-30.0) sec Sodium (137-145) mmol/L Chloride (98-107) mmol/L Glucose (74-99) mg/dL POC Glucose (mg/dL) 167 H (75-99) mg/dL Plasma Lactic Acid Frederick 3.2 H* 3.4 H* (0.7-2.0) mmol/L Alkaline Phosphatase (38-126) U/L 03/06/19 03/06/19 03/06/19 Range/Units 04:57 07:00 08:30 WBC (3.8-10.6) k/uL Hgb (11.4-16.0) gm/dL Hct (34.0-46.0) % MCV (80.0-100.0) fL MCH (25.0-35.0) pg RDW (11.5-15.5) % Plt Count (150-450) k/uL Neutrophils # (1.3-7.7) k/uL APTT (22.0-30.0) sec Sodium (137-145) mmol/L Chloride (98-107) mmol/L Glucose (74-99) mg/dL POC Glucose (mg/dL) 134 H (75-99) mg/dL Plasma Lactic Acid Frederick 2.6 H* 2.1 H* (0.7-2.0) mmol/L Alkaline Phosphatase (38-126) U/L Microbiology - Last 24 Hours (Table) 03/05/19 14:36 Gram Stain - Preliminary Abdomen Wound Culture - Preliminary Assessment and Plan Assessment: 1-patient being admitted to the hospital with concern for an infected mesh and abdominal abscess will need to cover for the gram-negative pathogen and in view of some worsening despite being on Zosyn possible Zosyn resistant pathogen Plan: 1-we will request abdominal culture both aerobic and anaerobic 2-discontinue Zosyn 3-start the patient on meropenem 1 g every 8 hours We will follow on clinical condition and cultures to further adjust medication if needed Thank you for this consultation will follow this patient with you Time with Patient: Greater than 30
[2019-03-07] MEDS ORDERED: MEROPENEM 1 GM in SODIUM CHLORIDE 0.9% 100 ML IVPB SCH (08:30)
[2019-03-07 12:15] LABS: Glucose,Whole Blood 192 mg/dL (75-99)
[2019-03-07] MEDS: MEROPENEM 1 GM in SODIUM CHLORIDE 0.9% 100 ML IVPB SCH ×2 (12:24→21:12)
--- NOTE | 2019-03-07 13:54 | P.PN ---
Subjective Progress Note Date: 03/07/19 CHIEF COMPLAINT: Abdominal pain, nausea HISTORY OF PRESENT ILLNESS: Patient is status post removal of infected mesh from previous hernia repair. Postop day 1. Patient developed bleeding last night at her surgical site. Dr. Montoya came in to evaluate bleeding and sutured a small bleeding vessel. No further bleeding today. Hemoglobin 7.0. Patient is receiving 1 unit RBC today. PHYSICAL EXAM: VITAL SIGNS: Reviewed. GENERAL: Well-developed in no acute distress. HEENT: No sclera icterus. Extraocular movements grossly intact. Moist buccal mucosa. Head is atraumatic, normocephalic. ABDOMEN: Soft. Nondistended. Open midline incision with kerlix packing noted. NEUROLOGIC: Alert and oriented. Cranial nerves II through XII grossly intact. ASSESSMENT: 1. History of recent incisional hernia repair, located by rectal sheath hemorrhage, December 2018 2. intra-abdominal abscess, status post removal of infected mesh 3. Acute blood loss anemia, and unexpected but potential complication of surgery PLAN: -Continue diet as tolerated -Continue antibiotics. Await wound cultures. Infectious disease on consult -Daily dressing changes with Kerlix packing -Patient will require wound VAC in near future. Okay from surgical standpoint for wound vac. Will defer timing to Dr. Lancaster -Monitor hemoglobin. Patient to receive 1 unit RBC today -Incentive spirometer -Patient would like to return to [facility] at time of discharge Nurse practitioner note has been reviewed by physician. Signing provider agrees with the documented findings, assessment, and plan of care. Objective - Vital Signs Vital signs: Vital Signs Temp 99.1 F 03/07/19 12:12 Pulse 91 03/07/19 12:12 Resp 14 03/07/19 12:12 BP 120/66 03/07/19 12:12 Pulse Ox 96 03/07/19 12:12 Intake & Output 03/06/19 03/07/19 03/07/19 18:59 06:59 18:59 Intake Total 500 500 310 Output Total 25 700 450 Balance 475 -200 -140 Intake: IV 500 Oral 500 Blood Product 310 Rc As-1 Unit 310 [id number] Output: Urine 700 450 Estimated Blood Loss 25 Other: Voiding Method Toilet Toilet Toilet Diaper Diaper Diaper Incontinent Incontinent Incontinent # Voids 2 1 # Bowel Movements 1 - Labs CBC & Chem 7: 03/07/19 04:16 03/05/19 20:50 Labs: Abnormal Lab Results - Last 24 Hours (Table) 03/06/19 03/06/19 03/06/19 Range/Units 14:30 16:46 17:21 WBC (3.8-10.6) k/uL RBC (3.80-5.40) m/uL Hgb (11.4-16.0) gm/dL Hct (34.0-46.0) % MCH (25.0-35.0) pg MCHC (31.0-37.0) g/dL RDW (11.5-15.5) % Plt Count (150-450) k/uL Neutrophils # (1.3-7.7) k/uL Basophils # (0-0.2) k/uL POC Glucose (mg/dL) 144 H 153 H (75-99) mg/dL Plasma Lactic Acid Frederick 2.1 H* (0.7-2.0) mmol/L Crossmatch 03/06/19 03/06/19 03/07/19 Range/Units 17:25 20:42 00:03 WBC (3.8-10.6) k/uL RBC (3.80-5.40) m/uL Hgb (11.4-16.0) gm/dL Hct (34.0-46.0) % MCH (25.0-35.0) pg MCHC (31.0-37.0) g/dL RDW (11.5-15.5) % Plt Count (150-450) k/uL Neutrophils # (1.3-7.7) k/uL Basophils # (0-0.2) k/uL POC Glucose (mg/dL) 176 H 247 H (75-99) mg/dL Plasma Lactic Acid Frederick 3.7 H* (0.7-2.0) mmol/L Crossmatch 03/07/19 03/07/19 03/07/19 Range/Units 04:16 07:33 07:37 WBC 20.9 H (3.8-10.6) k/uL RBC 2.86 L (3.80-5.40) m/uL Hgb 7.0 L D (11.4-16.0) gm/dL Hct 23.1 L (34.0-46.0) % MCH 24.6 L (25.0-35.0) pg MCHC 30.5 L (31.0-37.0) g/dL RDW 17.1 H (11.5-15.5) % Plt Count 491 H (150-450) k/uL Neutrophils # 18.0 H (1.3-7.7) k/uL Basophils # 0.3 H (0-0.2) k/uL POC Glucose (mg/dL) 209 H (75-99) mg/dL Plasma Lactic Acid Frederick (0.7-2.0) mmol/L Crossmatch See Detail 03/07/19 Range/Units 12:13 WBC (3.8-10.6) k/uL RBC (3.80-5.40) m/uL Hgb (11.4-16.0) gm/dL Hct (34.0-46.0) % MCH (25.0-35.0) pg MCHC (31.0-37.0) g/dL RDW (11.5-15.5) % Plt Count (150-450) k/uL Neutrophils # (1.3-7.7) k/uL Basophils # (0-0.2) k/uL POC Glucose (mg/dL) 192 H (75-99) mg/dL Plasma Lactic Acid Frederick (0.7-2.0) mmol/L Crossmatch Microbiology - Last 24 Hours (Table) 03/06/19 16:30 Gram Stain - Final Abdomen Tissue Culture - Final 03/06/19 16:30 Gram Stain - Preliminary Abdomen Wound Culture - Preliminary 03/06/19 10:59 Gram Stain - Preliminary Abdomen Wound Culture - Preliminary 03/06/19 16:30 Anaerobic Culture - Preliminary Abdomen 03/06/19 16:30 Anaerobic Culture - Preliminary Abdomen 03/05/19 20:50 Blood Culture - Preliminary Blood No Growth after 24 hours 03/05/19 14:36 Gram Stain - Preliminary Abdomen Wound Culture - Preliminary Gram Neg Bacilli 03/06/19 10:59 Anaerobic Culture - Preliminary Abdomen
[2019-03-07 16:46] LABS: Glucose,Whole Blood 199 mg/dL (75-99)
[2019-03-07] MEDS: KETOROLAC 30 MG/ML 1 ML VIAL IVP PRN (19:35)
[2019-03-07] MEDS: LATANOPROST 0.005% OPHTH DROPS 2.5 ML BTL BOTH EYES SCH (21:11)
[2019-03-07] MEDS: ATORVASTATIN 40 MG TAB PO SCH (21:12)
[2019-03-07] MEDS: DULoxetine HCL 60 MG CAPSULE.DR PO SCH (21:12)
[2019-03-07 21:21] LABS: Glucose,Whole Blood 224 mg/dL (75-99)
--- NOTE | 2019-03-07 22:59 | P.PN ---
Progress Note - Text Progress Note Date: 03/07/19 - Chief Complaint Abdominal discomfort interval history: This is a pleasant 73-year-old patient of Dr. Alcala. Chronic stable medical conditions include atrial fibrillation, coronary artery disease, diabetes, hyperlipidemia, hypertension, Randy arthritis, hypothyroid, peripheral arterial disease. Patient and December 2017 had a "coronary bypass for ischemic bowel resulting in the ostomy and a wound VAC. Patient subsequently had intra- abdominal abscess and required protracted course of antibiotics. Back in March 2018 had an abscess and patient did have a MASTER drain in place for the same. And December of this year patient had the incisional hernia with mesh placed. By Dr. Montoya. Patient does have significant bleeding from a MASTER drain. Continues to have a MASTER drain in place. Patient was recently in the hospital from 02/20/2019 through February 27. Patient is still putting a significant amount from a MASTER drain A nausea vomiting. Had elevated white count. Patient was seen by Dr. Lancaster from [place]. Was put on antibiotics and discharged on the same. Patient presented to Dr. Montoya's office. Having significant drainage through the MASTER drain. The drainage had become more purulent. Also having some diarrhea off and on for few days. No fever no chills. Having nausea. Appetite has been okay. Has been having sharp abdominal pain and discomfort. Dr. Montoya decided to take the abdominal mesh out today. Will be done this afternoon. Also has been some drainage from the lower part of the abdominal incision which is opened up about 2 cm today-yesterday evening patient had infected abdominal mesh removed. this morning patient had a superficial venous bleed from a abdominal incision wound.significant blood loss loss. Patient was ordered 1 unit of blood. Review of systems: Was done for constitutional, cardiovascular, GI, pulmonary. relevant finding as above Active Medications Amiodarone HCl (Cordarone) 100 mg PO DAILY@0800 [facility] Last Admin: 03/07/19 08:03 Dose: 100 mg Documented by: Amlodipine Besylate (Norvasc) 10 mg PO DAILY@0800 [facility] Last Admin: 03/07/19 08:01 Dose: Not Given Documented by: Atorvastatin Calcium (Lipitor) 40 mg PO HS@2100 [facility] Last Admin: 03/07/19 21:12 Dose: 40 mg Documented by: Duloxetine HCl (Cymbalta) 60 mg PO HS@2100 [facility] Last Admin: 03/07/19 21:12 Dose: 60 mg Documented by: Furosemide (Lasix) 40 mg PO BID@0800,1700 [facility] Last Admin: 03/07/19 16:27 Dose: 40 mg Documented by: Heparin Sodium (Porcine) (Heparin) 5,000 unit SQ Q8HR [facility] Last Admin: 03/07/19 15:00 Dose: Not Given Documented by: Hydromorphone HCl (Dilaudid) 0.5 mg IVP Q3HR PRN PRN Reason: Pain Last Admin: 03/07/19 17:35 Dose: 0.5 mg Documented by: Sodium Chloride (Saline 0.9%) 1,000 mls @ 125 mls/hr IV .Q8H [facility] Last Admin: 03/07/19 21:12 Dose: 125 mls/hr Documented by: Meropenem 1 gm/ Sodium (Chloride) 100 mls @ 200 mls/hr IVPB Q8H [facility]; Protocol Last Admin: 03/07/19 21:12 Dose: 200 mls/hr Documented by: Insulin Aspart (Novolog) 0 unit SQ ACHS [facility]; Protocol Last Admin: 03/07/19 21:13 Dose: 3 unit Documented by: Ketorolac Tromethamine (Toradol) 30 mg IVP Q6HR PRN PRN Reason: Moderate Pain Stop: 03/10/19 19:31 Last Admin: 03/07/19 19:35 Dose: 30 mg Documented by: Latanoprost (Xalatan 0.005%) 1 drops BOTH EYES HS@2100 [facility] Last Admin: 03/07/19 21:11 Dose: 1 drops Documented by: Levothyroxine Sodium (Synthroid) 88 mcg PO DAILY@0600 [facility] Last Admin: 03/07/19 06:22 Dose: 88 mcg Documented by: Losartan Potassium (Cozaar) 100 mg PO DAILY@0800 [facility] Last Admin: 03/07/19 08:01 Dose: Not Given Documented by: Magnesium Hydroxide (Milk Of Magnesia) 2,400 mg PO DAILY PRN PRN Reason: Constipation Metoprolol Tartrate (Lopressor) 50 mg PO BID@0800,1700 [facility] Last Admin: 03/07/19 16:27 Dose: 50 mg Documented by: Naloxone HCl (Narcan) 0.2 mg IV Q2M PRN PRN Reason: Opioid Reversal Ondansetron HCl (Zofran) 4 mg IVP Q8HR PRN PRN Reason: Nausea And Vomiting Last Admin: 03/07/19 17:35 Dose: 4 mg Documented by: Oxycodone HCl (Oxycontin 20mg E.R.) 20 mg PO BID@0800,2100 [facility] Last Admin: 03/07/19 21:10 Dose: 20 mg Documented by: Pantoprazole Sodium (Protonix) 40 mg PO DAILY [facility] Sodium Biphosphate/Sodium Phosphate (Fleet Adult) 133 ml RECTAL DAILY PRN PRN Reason: Constipation Physical examination: VITAL SIGNS: afebrile,104, 16, 99/64, 98% on 3 L GENERAL: laying in bed, tired EYES: Pupils equal. Conjunctiva pale HEENT: External appearance of nose and ears normal, oral cavity grossly normal. NECK: JVD not raised; masses not palpable. HEART: First and second heart sounds are normal; some edema. LUNGS: Respiratory rate normal; decreased breath sounds. ABDOMEN: Soft, mild tender, liver spleen not palpable, dressing present. MASTER drain with purulent drainage PSYCH: Alert and oriented x3; mood and affect normal. INVESTIGATIONS, reviewed in the clinical context: potassium 4.3 creatinine 1.83 Previous testing White count 15 hemoglobin 10 platelets 527 potassium 3.7 creatinine 0.80 lactic acid 3.2 Assessment: -Acute purulent drainage through the abdominal MASTER drain which has been present for quite some time. Suspect intra-abdominal infection. Infected mesh was removed. -Coronary artery disease per prior history of bypass -Paroxysmal atrial fibrillation -Peripheral artery disease -Hypothyroid -Diabetes mellitus type 2 on oral hypoglycemic -Lumbar osteoarthritis -Hyperlipidemia -Essential hypertension -History of bowel perforation recurrent intra-abdominal abscess -Obesity BMI 32.8 Plan: H&H will be followed. Other medications to continue. Care was discussed the patient.
--- NOTE | 2019-03-07 23:37 | PN ---
PROGRESS NOTE DATE OF SERVICE: 03/07/2019 REASON FOR FOLLOWUP: Infected abdominal mesh. INTERVAL HISTORY: The patient did have a low-grade fever this morning of 99.8. The patient has been afebrile since then. The patient did seem to have a problem from her incision site last night, for which re-evaluate the patient. No further bleeding. The patient denies having any chest pain, shortness of breath or cough and has no bowel movement. PHYSICAL EXAMINATION: Blood pressure is 110/59 with a pulse of 88, temperature 99.1. She is 96% on room air. General description is an elderly female lying in bed in no distress. RESPIRATORY SYSTEM: Unlabored breathing. Clear to auscultation anteriorly. HEART: S1, S2. Regular rate and rhythm. ABDOMEN: Soft. No tenderness. LABS: White count is slightly up at 20,000. Abdominal culture finalized with Stenotrophomonas maltophilia. DIAGNOSTIC IMPRESSION AND PLAN: Patient with infected abdominal mesh, status post removal. Culture has now been finalized with stenotrophomonas. Antibiotic will be switched over to Fortaz 2 grams q.8 hours. We will monitor clinical course closely. Continue with supportive care. MMODL / IJN: [id number] /
[2019-03-08] MEDS: HEPARIN SODIUM,PORCINE 5,000 UNIT/ML 1 ML VIAL SQ SCH ×4 (00:48→23:23)
[2019-03-08] MEDS: LEVOTHYROXINE 88 MCG TAB PO SCH (05:54)
[2019-03-08] MEDS: SODIUM CHLORIDE 0.9% 1,000 ML IV SCH ×3 (05:59→20:52)
[2019-03-08 07:19] LABS: Glucose,Whole Blood 154 mg/dL (75-99)
[2019-03-08 07:56] LABS: African American GFR (CKD) >90 (>60 ml/min/1.73 sqM); Anion Gap 6 mmol/L; Basophils # (A) 0.1 k/uL (0-0.2); Basophils % (A) 0 %; Blood Urea Nitrogen 4 mg/dL (7-17); Calcium 7.7 mg/dL (8.4-10.2); Carbon Dioxide 23 mmol/L (22-30); Chloride 108 mmol/L (98-107); Eosinophils # (A) 0.3 k/uL (0-0.7); Eosinophils % (A) 3 %; Glucose 125 mg/dL (74-99); HCT 21.6 % (34.0-46.0); Hypochromasia Moderate; Lymphocytes # (A) 1.3 k/uL (1.0-4.8); Lymphocytes % (A) 10 %; MCH 25.5 pg (25.0-35.0); MCHC 31.8 g/dL (31.0-37.0); MCV 80.1 fL (80.0-100.0); Mean Platelet Volume 6.3; Monocytes # (A) 0.6 k/uL (0-1.0); Monocytes % (A) 5 %; Neutrophils # (A) 9.9 k/uL (1.3-7.7); Neutrophils % (A) 80 %; Platelet Count 330 k/uL (150-450); Poikilocytosis Moderate; RBC 2.69 m/uL (3.80-5.40); RDW 15.8 % (11.5-15.5); Sodium 137 mmol/L (137-145); WBC 12.4 k/uL (3.8-10.6)
[2019-03-08 07:58] LABS: Potassium 2.5 mmol/L (3.5-5.1)
[2019-03-08 08:02] LABS: HGB 6.9 gm/dL (11.4-16.0)
[2019-03-08] MEDS: PANTOPRAZOLE 40 MG TABLET PO SCH (08:46)
[2019-03-08] MEDS: oxyCODONE ER 20 MG TAB.ER.12H PO SCH ×2 (08:46→20:51)
[2019-03-08] MEDS: amLODIPine 10 MG TAB PO SCH (08:46)
[2019-03-08] MEDS: LOSARTAN 50 MG TAB PO SCH (08:46)
[2019-03-08] MEDS: FUROSEMIDE 40 MG TAB PO SCH ×2 (08:46→17:09)
[2019-03-08] MEDS: METOPROLOL TARTRATE 50 MG TAB PO SCH ×2 (08:46→17:09)
[2019-03-08] MEDS: AMIODARONE 100 MG TAB PO SCH (08:46)
[2019-03-08] MEDS: INSULIN ASPART (NovoLOG) 100 UNIT/ML VIAL SQ SCH ×4 (08:47→20:52)
[2019-03-08] MEDS: POTASSIUM CHLORIDE ER 20 MEQ TAB.ER PO SCH ×4 (09:58→20:51)
[2019-03-08 10:45] LABS: Creatine Kinase <20 U/L (30-135)
[2019-03-08 10:58] LABS: Creatine Kinase MB 0.6 ng/mL (0.0-2.4); Troponin I 0.019 ng/mL (0.000-0.034)
[2019-03-08 12:14] LABS: Glucose,Whole Blood 155 mg/dL (75-99)
[2019-03-08] MEDS ORDERED: LOPERAMIDE 2 MG CAP PO PRN (12:57)
[2019-03-08] MEDS ORDERED: CALCIUM CARBONATE 500 MG CHEWABLE PO PRN (12:57)
[2019-03-08] MEDS ORDERED: VANCOMYCIN IV PER PHARMACY 1 EACH MISC MISCELLANE PRN (13:27)
[2019-03-08] MEDS: VANCOMYCIN 1,500 MG in SODIUM CHLORIDE 0.9% 250 ML IVPB SCH (13:57)
--- NOTE | 2019-03-08 13:57 | PN ---
PROGRESS NOTE DATE OF SERVICE: 03/08/2019 REASON FOR FOLLOWUP: Infected abdominal mesh with Stenotrophomonas. INTERVAL HISTORY: The patient is currently afebrile. The patient denies having any chest pain or shortness of breath or cough. No nausea, no vomiting. Denies any further abdominal pain or any bleeding and no diarrhea. PHYSICAL EXAMINATION: Blood pressure 110/74 with a pulse of 73, temperature 98.8. She is 98% on room air. General description is an elderly female, lying in bed in no distress. RESPIRATORY SYSTEM: Unlabored breathing and is clear to auscultation anteriorly. HEART: S1, S2. Regular rate and rhythm. ABDOMEN: Soft, the wound is currently covered with wet-to-dry dressing. EXTREMITIES: No edema of the feet. LABS: White count down to 12.9. Hemoglobin is down. Wound culture showing a gram-negative in addition to the Enterococcus. DIAGNOSTIC IMPRESSION AND PLAN: Patient with infected abdominal mesh, status post removal of the infected mesh, culture now showing Enterococcus in addition to Stenotrophomonas. We will add vancomycin to cover for that. Continue local care with wet-to-dry dressing changes and continue supportive care. MMODL / IJN: [id number] /
--- NOTE | 2019-03-08 16:11 | P.PN ---
Progress Note - Text Progress Note Date: 03/08/19 The patient's resting comfortably in bed. She denies any significant abdominal pain. The patient's dressing was removed. There is no evidence of any active bleeding from here wound. The base of the wound has healthy granulation tissue forming. There is some evidence of some ischemic fat on the lateral aspects of the wound. The patient will have a wound VAC placed by Dr. Autumn panchal at some point this weekend. She will be continued to be observed. There is no sign of any bleeding from her wound currently.
--- NOTE | 2019-03-08 16:12 | P.PN ---
Progress Note - Text Progress Note Date: 03/06/19 I was called regarding the patient's wound. The patient had passed some large clots from her wound. The patient's dressing was taken down the bedside. There was a small vein that was oozing at the base of the wound. This was suture-ligated with a 3-0 nylon suture. The wound was repacked with wet-to-dry Kerlix.
[2019-03-08 17:00] LABS: Glucose,Whole Blood 163 mg/dL (75-99)
--- NOTE | 2019-03-08 17:10 | P.PN ---
Progress Note - Text Progress Note Date: 03/08/19 - Chief Complaint Abdominal discomfort interval history: This is a pleasant 73-year-old patient of Dr. Alcala. Chronic stable medical conditions include atrial fibrillation, coronary artery disease, diabetes, hyperlipidemia, hypertension, Randy arthritis, hypothyroid, peripheral arterial disease. Patient and December 2017 had a "coronary bypass for ischemic bowel resulting in the ostomy and a wound VAC. Patient subsequently had intra- abdominal abscess and required protracted course of antibiotics. Back in March 2018 had an abscess and patient did have a MASTER drain in place for the same. And December of this year patient had the incisional hernia with mesh placed. By Dr. Montoya. Patient does have significant bleeding from a MASTER drain. Continues to have a MASTER drain in place. Patient was recently in the hospital from 02/20/2019 through February 27. Patient is still putting a significant amount from a MASTER drain A nausea vomiting. Had elevated white count. Patient was seen by Dr. Lancaster from [place]. Was put on antibiotics and discharged on the same. Patient presented to Dr. Montoya's office. Having significant drainage through the MASTER drain. The drainage had become more purulent. Also having some diarrhea off and on for few days. No fever no chills. Having nausea. Appetite has been okay. Has been having sharp abdominal pain and discomfort. Dr. Montoya decided to take the abdominal mesh out. Also has been some drainage from the lower part of the abdominal incision which is opened up about 2 cm Following day, the patient had a superficial venous bleed from a abdominal incision wound.significant blood loss. Patient received 1 unit of blood. Today-. Retired. Did tolerate some diet. Some serous drainage in the abdominal dressing. Hemoglobin did drop. Second unit ordered this morning. Review of systems: Was done for constitutional, cardiovascular, GI, pulmonary. relevant finding as above Active Medications Acetaminophen (Tylenol Tab) 650 mg PO Q6HR PRN PRN Reason: Fever and/ or Pain Amiodarone HCl (Cordarone) 100 mg PO DAILY@0800 [facility] Last Admin: 03/08/19 08:46 Dose: 100 mg Documented by: Amlodipine Besylate (Norvasc) 10 mg PO DAILY@0800 [facility] Last Admin: 03/08/19 08:46 Dose: 10 mg Documented by: Atorvastatin Calcium (Lipitor) 40 mg PO HS@2100 [facility] Last Admin: 03/07/19 21:12 Dose: 40 mg Documented by: Calcium Carbonate/Glycine (Tums) 1,000 mg PO QID PRN PRN Reason: Heartburn Last Admin: 03/08/19 13:57 Dose: 1,000 mg Documented by: Duloxetine HCl (Cymbalta) 60 mg PO HS@2100 [facility] Last Admin: 03/07/19 21:12 Dose: 60 mg Documented by: Furosemide (Lasix) 40 mg PO BID@0800,1700 [facility] Last Admin: 03/08/19 08:46 Dose: 40 mg Documented by: Heparin Sodium (Porcine) (Heparin) 5,000 unit SQ Q8HR [facility] Last Admin: 03/08/19 17:03 Dose: Not Given Documented by: Hydromorphone HCl (Dilaudid) 0.5 mg IVP Q3HR PRN PRN Reason: Pain Last Admin: 03/07/19 17:35 Dose: 0.5 mg Documented by: Sodium Chloride (Saline 0.9%) 1,000 mls @ 125 mls/hr IV .Q8H [facility] Last Admin: 03/08/19 12:29 Dose: 125 mls/hr Documented by: Ceftazidime 2 gm/ Sodium (Chloride) 100 mls @ 100 mls/hr IVPB Q8HR [facility] Last Admin: 03/08/19 08:46 Dose: 100 mls/hr Documented by: Vancomycin HCl 1,500 mg/ (Sodium Chloride) 250 mls @ 125 mls/hr IVPB Q24HR@0000,1200 [facility] Last Admin: 03/08/19 13:57 Dose: 125 mls/hr Documented by: Insulin Aspart (Novolog) 0 unit SQ ACHS [facility]; Protocol Last Admin: 03/08/19 12:27 Dose: 1 unit Documented by: Ketorolac Tromethamine (Toradol) 30 mg IVP Q6HR PRN PRN Reason: Moderate Pain Stop: 03/10/19 19:31 Last Admin: 03/07/19 19:35 Dose: 30 mg Documented by: Latanoprost (Xalatan 0.005%) 1 drops BOTH EYES HS@2100 [facility] Last Admin: 03/07/19 21:11 Dose: 1 drops Documented by: Levothyroxine Sodium (Synthroid) 88 mcg PO DAILY@0600 [facility] Last Admin: 03/08/19 05:54 Dose: 88 mcg Documented by: Loperamide HCl (Imodium) 2 mg PO QID PRN PRN Reason: Diarrhea Last Admin: 03/08/19 13:57 Dose: 2 mg Documented by: Losartan Potassium (Cozaar) 100 mg PO DAILY@0800 [facility] Last Admin: 03/08/19 08:46 Dose: 100 mg Documented by: Magnesium Hydroxide (Milk Of Magnesia) 2,400 mg PO DAILY PRN PRN Reason: Constipation Metoprolol Tartrate (Lopressor) 50 mg PO BID@0800,1700 [facility] Last Admin: 03/08/19 08:46 Dose: 50 mg Documented by: Miscellaneous Information (Vancomycin Trough Due) 1 each MISCELLANE ONCE ONE Stop: 03/10/19 11:01 Naloxone HCl (Narcan) 0.2 mg IV Q2M PRN PRN Reason: Opioid Reversal Ondansetron HCl (Zofran) 4 mg IVP Q8HR PRN PRN Reason: Nausea And Vomiting Last Admin: 03/07/19 17:35 Dose: 4 mg Documented by: Oxycodone HCl (Oxycontin 20mg E.R.) 20 mg PO BID@0800,2100 [facility] Last Admin: 03/08/19 08:46 Dose: 20 mg Documented by: Pantoprazole Sodium (Protonix) 40 mg PO DAILY [facility] Last Admin: 03/08/19 08:46 Dose: 40 mg Documented by: Potassium Chloride (K-Dur 20) 20 meq PO DAILY [facility] Sodium Biphosphate/Sodium Phosphate (Fleet Adult) 133 ml RECTAL DAILY PRN PRN Reason: Constipation Physical examination: VITAL SIGNS: 98.8, 73, 16, 1 [place] 74, 97% on room air GENERAL: laying in bed, awake EYES: Pupils equal. Conjunctiva pale HEENT: External appearance of nose and ears normal, oral cavity grossly normal. NECK: JVD not raised; masses not palpable. HEART: First and second heart sounds are normal; some edema. LUNGS: Respiratory rate normal; decreased breath sounds. ABDOMEN: Soft, mild tender, liver spleen not palpable, dressing present. MASTER drain with purulent drainage PSYCH: Alert and oriented x3; mood and affect normal. INVESTIGATIONS, reviewed in the clinical context: White count 12.4 hemoglobin 6.9 progression 2.5 after replacement today 3.9 creatinine 0.66 Previous testing White count 15 hemoglobin 10 platelets 527 potassium 3.7 creatinine 0.80 lactic acid 3.2 Abdominal wound culture growing-group D enterococcus,stenotrophomonas maltophilia Assessment: -Acute purulent drainage through the abdominal MASTER drain which has been present for quite some time. Suspect intra-abdominal infection. Infected mesh was removed. Wound cultures growing group G enterococcus,'s stenotrophomonas maltophilia -Acute blood loss anemia, symptomatic, patient getting second unit of blood today -Severe hypokalemia, potassium is replaced today -Coronary artery disease per prior history of bypass -Paroxysmal atrial fibrillation -Peripheral artery disease -Hypothyroid -Diabetes mellitus type 2 on oral hypoglycemic -Lumbar osteoarthritis -Hyperlipidemia -Essential hypertension -History of bowel perforation recurrent intra-abdominal abscess -Obesity BMI 32.8 Plan: Antibodies to continue. Patient got a second unit of blood today. Potassium replaced aggressively. Repeat CBC BMP in the morning. Care was discussed with the patient. Dressing changes per surgery. Patient will IV ceftazidime, IV vancomycin.
[2019-03-08] MEDS: ACETAMINOPHEN TAB 325 MG TAB PO PRN (17:16)
[2019-03-08 20:23] LABS: Glucose,Whole Blood 290 mg/dL (75-99)
[2019-03-08] MEDS: LATANOPROST 0.005% OPHTH DROPS 2.5 ML BTL BOTH EYES SCH (20:51)
[2019-03-08] MEDS: DULoxetine HCL 60 MG CAPSULE.DR PO SCH (20:51)
[2019-03-08] MEDS: ATORVASTATIN 40 MG TAB PO SCH (20:51)
[2019-03-09] MEDS: VANCOMYCIN 1,500 MG in SODIUM CHLORIDE 0.9% 250 ML IVPB SCH ×2 (00:37→12:09)
[2019-03-09] MEDS: LEVOTHYROXINE 88 MCG TAB PO SCH (05:38)
[2019-03-09] MEDS: SODIUM CHLORIDE 0.9% 1,000 ML IV SCH ×3 (05:39→20:48)
[2019-03-09 06:56] LABS: Glucose,Whole Blood 133 mg/dL (75-99)
[2019-03-09] MEDS: INSULIN ASPART (NovoLOG) 100 UNIT/ML VIAL SQ SCH ×4 (07:35→21:17)
[2019-03-09] MEDS: HEPARIN SODIUM,PORCINE 5,000 UNIT/ML 1 ML VIAL SQ SCH ×3 (07:37→23:13)
[2019-03-09] MEDS: FUROSEMIDE 40 MG TAB PO SCH ×2 (07:47→16:48)
[2019-03-09] MEDS: AMIODARONE 100 MG TAB PO SCH (07:47)
[2019-03-09] MEDS: amLODIPine 10 MG TAB PO SCH (07:47)
[2019-03-09] MEDS: LOSARTAN 50 MG TAB PO SCH (07:47)
[2019-03-09] MEDS: METOPROLOL TARTRATE 50 MG TAB PO SCH ×2 (07:47→16:48)
[2019-03-09] MEDS: oxyCODONE ER 20 MG TAB.ER.12H PO SCH ×2 (07:48→20:47)
[2019-03-09] MEDS: PANTOPRAZOLE 40 MG TABLET PO SCH (07:48)
[2019-03-09] MEDS: POTASSIUM CHLORIDE ER 20 MEQ TAB.ER PO SCH ×2 (07:48→09:23)
[2019-03-09 08:31] LABS: African American GFR (CKD) >90 (>60 ml/min/1.73 sqM); Anion Gap 8 mmol/L; Blood Urea Nitrogen 4 mg/dL (7-17); Calcium 8.5 mg/dL (8.4-10.2); Carbon Dioxide 22 mmol/L (22-30); Chloride 107 mmol/L (98-107); Glucose 168 mg/dL (74-99); Magnesium 1.4 mg/dL (1.6-2.3); Potassium 3.4 mmol/L (3.5-5.1); Sodium 137 mmol/L (137-145)
[2019-03-09 08:37] LABS: Anisocytosis Slight; Basophils # (A) 0.1 k/uL (0-0.2); Basophils % (A) 1 %; Eosinophils # (A) 0.5 k/uL (0-0.7); Eosinophils % (A) 4 %; HCT 26.6 % (34.0-46.0); Hypochromasia Marked; Lymphocytes # (A) 1.6 k/uL (1.0-4.8); Lymphocytes % (A) 13 %; MCH 27.7 pg (25.0-35.0); MCHC 32.9 g/dL (31.0-37.0); MCV 84.2 fL (80.0-100.0); Mean Platelet Volume 6.4; Monocytes # (A) 0.6 k/uL (0-1.0); Monocytes % (A) 5 %; Neutrophils % (A) 75 %; Platelet Count 366 k/uL (150-450); Poikilocytosis Marked; RBC 3.15 m/uL (3.80-5.40); RDW 16.2 % (11.5-15.5)
[2019-03-09 08:40] LABS: HGB 8.7 gm/dL (11.4-16.0)
[2019-03-09] MEDS ORDERED: Potassium Replacement Protocol 1 EACH MISC MISCELLANE PRN (09:06)
[2019-03-09] MEDS ORDERED: Magnesium Replacement Protocol 1 EACH MISC MISCELLANE PRN (09:06)
[2019-03-09] MEDS: MAGNESIUM SULFATE-D5W PMX 1 GM in DEXTROSE/WATER 1 100ML.BAG IVPB SCH ×3 (10:33→13:38)
[2019-03-09 11:40] LABS: Glucose,Whole Blood 262 mg/dL (75-99)
--- NOTE | 2019-03-09 12:04 | P.PN ---
Subjective this is a pleasant 74 years old female with past medical history of chronic paroxysmal atrial fibrillation, coronary artery disease, diabetes mellitus, hyperlipidemia, hypertension, memory impairment, hypothyroidism, posterior arthritis of degenerative joint disease including bilateral shoulder pain and chronic low back pain with pinched nerve, urinary incontinence, chronic leukocytosis, she is a status post incisional hernia repair with open surgery and mesh placement on 01/18/2019. she was recently hospitalized from 02/20- for her abdominal wound, she still have significant draining from the MASTER tube with nausea vomiting. Patient has been followed here by surgery and infectious disease team. For her abdominal wound infection. Patient currently on ceftazidime and IV vancomycin with normal saline. Patient has noticed to have a clot in her abdominal wound needing reevaluation by surgical team yesterday. Her once culture is growing enterococcus and st.maltophilia. her pain is controlled and her abdominal side however her tenderness get worse with movement Objective - Vital Signs Vital signs: Vital Signs Temp 98.1 F 03/09/19 05:30 Pulse 72 03/09/19 07:43 Resp 20 03/09/19 05:30 BP 120/72 03/09/19 07:43 Pulse Ox 97 03/09/19 05:30 Intake & Output 03/08/19 03/09/19 03/09/19 18:59 06:59 18:59 Intake Total 310 Output Total 3000 2600 Balance -2690 -2600 Intake: Blood Product 310 Rc As-1 Unit 310 [id number] Output: Urine 3000 2600 Other: Voiding Method Indwelling Catheter Indwelling Catheter # Bowel Movements 0 - Exam GENERAL: The patient is alert and oriented x3, not in any acute distress. Well developed, well nourished. HEENT: Pupils are round and equally reacting to light. EOMI. No scleral icterus. No conjunctival pallor. Normocephalic, atraumatic. No pharyngeal erythema. No thyromegaly. CARDIOVASCULAR: S1 and S2 present. No murmurs, rubs, or gallops. PULMONARY: Chest is clear to auscultation, no wheezing or crackles. -ABDOMEN: Soft, nontender, nondistended, normoactive bowel sounds. No palpable organomegaly. open midline abdominal wound in the lower abdomen with dressing is in a Place, no surrounding cellulitis MUSCULOSKELETAL: No joint swelling or deformity. EXTREMITIES: No cyanosis, clubbing, or pedal edema. NEUROLOGICAL: Gross neurological examination did not reveal any focal deficits. SKIN: No rashes. no petechiae. - Labs CBC & Chem 7: 03/09/19 07:52 03/09/19 07:52 Labs: Abnormal Lab Results - Last 24 Hours (Table) 03/07/19 03/08/19 03/08/19 Range/Units 07:33 12:09 16:58 WBC (3.8-10.6) k/uL RBC (3.80-5.40) m/uL Hgb (11.4-16.0) gm/dL Hct (34.0-46.0) % RDW (11.5-15.5) % Neutrophils # (1.3-7.7) k/uL Potassium (3.5-5.1) mmol/L BUN (7-17) mg/dL Glucose (74-99) mg/dL POC Glucose (mg/dL) 155 H 163 H (75-99) mg/dL Magnesium (1.6-2.3) mg/dL Crossmatch See Detail 03/08/19 03/09/19 03/09/19 Range/Units 20:22 06:52 07:52 WBC 12.0 H (3.8-10.6) k/uL RBC 3.15 L (3.80-5.40) m/uL Hgb 8.7 L D (11.4-16.0) gm/dL Hct 26.6 L (34.0-46.0) % RDW 16.2 H (11.5-15.5) % Neutrophils # 9.0 H (1.3-7.7) k/uL Potassium (3.5-5.1) mmol/L BUN (7-17) mg/dL Glucose (74-99) mg/dL POC Glucose (mg/dL) 290 H 133 H (75-99) mg/dL Magnesium (1.6-2.3) mg/dL Crossmatch 03/09/19 03/09/19 Range/Units 07:52 11:37 WBC (3.8-10.6) k/uL RBC (3.80-5.40) m/uL Hgb (11.4-16.0) gm/dL Hct (34.0-46.0) % RDW (11.5-15.5) % Neutrophils # (1.3-7.7) k/uL Potassium 3.4 L (3.5-5.1) mmol/L BUN 4 L (7-17) mg/dL Glucose 168 H (74-99) mg/dL POC Glucose (mg/dL) 262 H (75-99) mg/dL Magnesium 1.4 L (1.6-2.3) mg/dL Crossmatch Microbiology - Last 24 Hours (Table) 03/06/19 10:59 Gram Stain - Preliminary Abdomen Wound Culture - Preliminary Gram Neg Bacilli Gram Neg Bacilli#2 Enterococcus faecium VRE 03/06/19 16:30 Anaerobic Culture - Preliminary Abdomen 03/05/19 20:50 Blood Culture - Preliminary Blood No Growth after 72 hours 03/06/19 16:30 Anaerobic Culture - Preliminary Abdomen 03/06/19 16:30 Gram Stain - Preliminary Abdomen Wound Culture - Preliminary Gram Neg Bacilli 03/06/19 16:30 Gram Stain - Final Abdomen Tissue Culture - Preliminary Gram Neg Bacilli Coagulase Negative Staph Group D Enterococcus 03/06/19 10:59 Anaerobic Culture - Preliminary Abdomen Assessment and Plan Assessment: Abdominal wound infection, status post hernia repair and mesh removal Chronic paroxysmal atrial fibrillation diabetes mellitus Hyperlipidemia Hypertension History of coronary artery disease Memory impairment Hypothyroidism Osteoarthritis with degenerative joint disease including bilateral shoulder pain and chronic leg pain with pinched nerve Urine incontinence Plan: this is a pleasant 74 years old female who presents with wound infection. Continue with antibiotics as per ID team. Follow-up recommendation by surgical team. Continue with IV fluids. Pain management. Labs and medication were reviewed.. Continue same treatment. Continue with symptomatic treatment. Resume home medication. Monitor lytes and vitals. DVT and GI prophylaxis. Further recommendations of the clinical course of the patient DVT prophylaxis: Subcutaneous heparin GI Prophylaxis: Protonix PT/OT: Pending Prognosis is guarded
--- NOTE | 2019-03-09 12:56 | PN ---
PROGRESS NOTE DATE OF SERVICE: 03/09/2019 REASON FOR FOLLOWUP: Abdominal mesh infection. INTERVAL HISTORY: The patient is currently afebrile. Patient is breathing comfortably. Denies having any chest pain. No cough. No nausea, no vomiting. Denies having any abdominal pain and no diarrhea. PHYSICAL EXAMINATION: Blood pressure 120/72 with a pulse of 72, temperature 98.1. She is 97% on room air. General description is an elderly female lying in bed in no distress. Respiratory system: Unlabored breathing. Clear to auscultation anteriorly. Heart S1, S2. Regular rate and rhythm. Abdomen soft. Abdominal wound currently looks clean with no significant ( ) or surrounding redness or any foul smelling drainage. LABS: Hemoglobin 8.7, white count ( ), BUN of 4, creatinine 0.61. DIAGNOSTIC IMPRESSION AND PLAN: Patient with infected abdominal mesh status post removal of the same and extensive surgery. Local care was switched over to wound VAC. ( ) pressure 125 mmHg to be changed Monday, Monday, . Antibiotic coverage in the form of Fortaz and vancomycin and continue supportive care. MMODL / IJN: [id number] /
--- NOTE | 2019-03-09 14:13 | P.PN ---
Subjective Progress Note Date: 03/09/19 CHIEF COMPLAINT: Mesh infection, ventral hernia HISTORY OF PRESENT ILLNESS: The patient is a 74-year-old female status post removal of mesh including ventral hernia repair. Clinically she is doing well. She is status post evacuation of hematoma along the midline incision with removal of previous mesh. She is awaiting placement of wound VAC. She is being covered by infectious disease. Multiple antibiotics started. She is tolerating diet. [place] catheter present. ROS: No reports of nausea and vomiting. No fevers or chills. No new chest pain. No productive sputum PHYSICAL EXAM: VITAL SIGNS: Reviewed CONSTITUTIONAL: Well developed and in no acute distress. EYES: Conjuctivae without sclera icterus. Extraocular movements grossly intact. HEAD, EARS, NOSE, THROAT: Moist buccal mucosa. Head is atraumatic, normocephalic. Hears conversational speech. No nasal drainage. NECK: Supple. No thyroidomegaly. RESPIRATORY: Non-labored respirations and equal bilateral excursions. CARDIOVASCULAR: Palpable 2+ radial pulses. Regular rate. Regular rhythm. ABDOMEN: Dressing intact MUSCULOSKELETAL: No gross deformity of the lower extremities noted. No clubbing. No cyanosis. SKIN: Good skin turgor. Well perfused. NEUROLOGIC: Cranial nerves I through XII grossly intact. No focal or la teralizing signs. PSYCH: Appropriate affect. Alert and oriented to person, place and time. CLINCAL LABS: White blood cell count elevated over 12,000 ASSESSMENT: 1. Status post evacuation of hematoma along the midline incision with removal of previous mesh PLAN: 1. Await placement of wound VAC per infectious disease. Objective - Vital Signs Vital signs: Vital Signs Temp 98.1 F 03/09/19 05:30 Pulse 72 03/09/19 07:43 Resp 20 03/09/19 05:30 BP 120/72 03/09/19 07:43 Pulse Ox 97 03/09/19 05:30 Intake & Output 03/08/19 03/09/19 03/09/19 18:59 06:59 18:59 Intake Total 310 Output Total 3000 2600 Balance -2690 -2600 Intake: Blood Product 310 Rc As-1 Unit 310 [id number] Output: Urine 3000 2600 Other: Voiding Method Indwelling Catheter Indwelling Catheter # Bowel Movements 0 - Labs CBC & Chem 7: 03/10/19 08:03 03/10/19 08:03 Labs: Abnormal Lab Results - Last 24 Hours (Table) 03/08/19 03/08/19 03/09/19 Range/Units 16:58 20:22 06:52 WBC (3.8-10.6) k/uL RBC (3.80-5.40) m/uL Hgb (11.4-16.0) gm/dL Hct (34.0-46.0) % RDW (11.5-15.5) % Neutrophils # (1.3-7.7) k/uL Potassium (3.5-5.1) mmol/L BUN (7-17) mg/dL Glucose (74-99) mg/dL POC Glucose (mg/dL) 163 H 290 H 133 H (75-99) mg/dL Magnesium (1.6-2.3) mg/dL 03/09/19 03/09/19 03/09/19 Range/Units 07:52 07:52 11:37 WBC 12.0 H (3.8-10.6) k/uL RBC 3.15 L (3.80-5.40) m/uL Hgb 8.7 L D (11.4-16.0) gm/dL Hct 26.6 L (34.0-46.0) % RDW 16.2 H (11.5-15.5) % Neutrophils # 9.0 H (1.3-7.7) k/uL Potassium 3.4 L (3.5-5.1) mmol/L BUN 4 L (7-17) mg/dL Glucose 168 H (74-99) mg/dL POC Glucose (mg/dL) 262 H (75-99) mg/dL Magnesium 1.4 L (1.6-2.3) mg/dL Microbiology - Last 24 Hours (Table) 03/06/19 10:59 Gram Stain - Preliminary Abdomen Wound Culture - Preliminary Stenotrophomonas maltophilia Gram Neg Bacilli Enterococcus faecium VRE 03/06/19 16:30 Anaerobic Culture - Preliminary Abdomen 03/05/19 20:50 Blood Culture - Preliminary Blood No Growth after 72 hours 03/06/19 16:30 Anaerobic Culture - Preliminary Abdomen 03/06/19 16:30 Gram Stain - Preliminary Abdomen Wound Culture - Preliminary Gram Neg Bacilli 03/06/19 16:30 Gram Stain - Final Abdomen Tissue Culture - Preliminary Gram Neg Bacilli Coagulase Negative Staph Group D Enterococcus 03/06/19 10:59 Anaerobic Culture - Preliminary Abdomen Assessment and Plan (1) Infected hernioplasty mesh Current Visit: Yes Status: Acute Code(s): T85.79XA - INFECT/INFLM REACTION DUE TO OTH INT PROSTH DEV/GRFT, INIT SNOMED Code(s): 782485943 (2) Surgical site infection Current Visit: Yes Status: Acute Code(s): T81.49XA - INFECTION FOLLOWING A PROCEDURE, OTHER SURGICAL SITE, INIT SNOMED Code(s): 87511274 (3) Abdominal abscess Current Visit: No Status: Acute Code(s): SDP4218 - SNOMED Code(s): 75 067157 (4) Acute blood loss anemia Current Visit: No Status: Acute Code(s): D62 - ACUTE POSTHEMORRHAGIC ANEMIA SNOMED Code(s): 988618488
[2019-03-09] MEDS: DAPTOmycin 500 MG in SODIUM CHLORIDE 0.9% 50 ML IVPB SCH (15:18)
[2019-03-09] MEDS: HYDROmorphone 0.5 MG/0.5 ML SYRINGE IVP PRN (16:47)
[2019-03-09 17:02] LABS: Glucose,Whole Blood 169 mg/dL (75-99)
[2019-03-09] MEDS: ATORVASTATIN 40 MG TAB PO SCH (20:47)
[2019-03-09] MEDS: DULoxetine HCL 60 MG CAPSULE.DR PO SCH (20:47)
[2019-03-09] MEDS: LATANOPROST 0.005% OPHTH DROPS 2.5 ML BTL BOTH EYES SCH (20:48)
[2019-03-09 21:20] LABS: Glucose,Whole Blood 202 mg/dL (75-99)
[2019-03-10] MEDS: LEVOTHYROXINE 88 MCG TAB PO SCH (05:42)
[2019-03-10] MEDS: SODIUM CHLORIDE 0.9% 1,000 ML IV SCH ×3 (05:43→20:52)
[2019-03-10 07:26] LABS: Glucose,Whole Blood 131 mg/dL (75-99)
[2019-03-10] MEDS: POTASSIUM CHLORIDE ER 20 MEQ TAB.ER PO SCH (08:12)
[2019-03-10] MEDS: FUROSEMIDE 40 MG TAB PO SCH ×2 (08:12→17:36)
[2019-03-10] MEDS: METOPROLOL TARTRATE 50 MG TAB PO SCH ×2 (08:12→17:36)
[2019-03-10] MEDS: AMIODARONE 100 MG TAB PO SCH (08:12)
[2019-03-10] MEDS: PANTOPRAZOLE 40 MG TABLET PO SCH (08:12)
[2019-03-10] MEDS: amLODIPine 10 MG TAB PO SCH (08:12)
[2019-03-10] MEDS: HEPARIN SODIUM,PORCINE 5,000 UNIT/ML 1 ML VIAL SQ SCH ×3 (08:12→23:24)
[2019-03-10] MEDS: LOSARTAN 50 MG TAB PO SCH (08:12)
[2019-03-10] MEDS: INSULIN ASPART (NovoLOG) 100 UNIT/ML VIAL SQ SCH ×4 (08:13→20:50)
[2019-03-10] MEDS: oxyCODONE ER 20 MG TAB.ER.12H PO SCH ×2 (08:13→20:50)
[2019-03-10] MEDS: ONDANSETRON 4 MG/2 ML VIAL IVP PRN (08:27)
[2019-03-10 08:50] LABS: Anisocytosis Slight; Basophils # (A) 0.1 k/uL (0-0.2); Basophils % (A) 1 %; Eosinophils # (A) 0.5 k/uL (0-0.7); Eosinophils % (A) 5 %; HCT 26.7 % (34.0-46.0); HGB 8.7 gm/dL (11.4-16.0); Hypochromasia Slight; Lymphocytes # (A) 1.6 k/uL (1.0-4.8); Lymphocytes % (A) 17 %; MCHC 32.5 g/dL (31.0-37.0); MCV 83.2 fL (80.0-100.0); Monocytes # (A) 0.6 k/uL (0-1.0); Monocytes % (A) 7 %; Neutrophils # (A) 6.6 k/uL (1.3-7.7); Neutrophils % (A) 69 %; Platelet Count 407 k/uL (150-450); Poikilocytosis Moderate; RDW 17.4 % (11.5-15.5); WBC 9.6 k/uL (3.8-10.6)
[2019-03-10 08:52] LABS: African American GFR (CKD) >90 (>60 ml/min/1.73 sqM); Anion Gap 8 mmol/L; Blood Urea Nitrogen 2 mg/dL (7-17); Calcium 7.7 mg/dL (8.4-10.2); Carbon Dioxide 24 mmol/L (22-30); Chloride 106 mmol/L (98-107); Glucose 143 mg/dL (74-99); Magnesium 1.8 mg/dL (1.6-2.3); Potassium 3.2 mmol/L (3.5-5.1); Sodium 138 mmol/L (137-145)
[2019-03-10] MEDS ORDERED: MAGNESIUM OXIDE 400 MG TAB PO STA (09:41)
--- NOTE | 2019-03-10 09:42 | P.PN ---
Subjective this is a pleasant 74 years old female with past medical history of chronic paroxysmal atrial fibrillation, coronary artery disease, diabetes mellitus, hyperlipidemia, hypertension, memory impairment, hypothyroidism, posterior arthritis of degenerative joint disease including bilateral shoulder pain and chronic low back pain with pinched nerve, urinary incontinence, chronic leukocytosis, she is a status post incisional hernia repair with open surgery and mesh placement on 01/18/2019. she was recently hospitalized from 02/20- for her abdominal wound, she still have significant draining from the MASTER tube with nausea vomiting. Patient has been followed here by surgery and infectious disease team. For her abdominal wound infection. Patient currently on ceftazidime and IV vancomycin with normal saline. Patient has noticed to have a clot in her abdominal wound needing reevaluation by surgical team yesterday. Her once culture is growing enterococcus and st.maltophilia. her pain is controlled and her abdominal side however her tenderness get worse with movement 03/10/2019 Patient is fully awake and oriented. She couldn't recognize family members me from yesterday. She is able to eat and drink however she is filling and well today, she felt nausea with no vomiting and Zofran is provided for her. She has to her usual abdominal pain of every day from her abdominal wound. No new abdominal pain or pain anywhere else. She denies to me any other symptoms. No chest pain or dyspnea or headache. She still have some loose bowel movement and given less laxative. Patient got wound VAC today. Patient remains on ceftazidime and daptomycin as per ID team. Blood pressure this morning is 117/56 and currently she is on normal saline and 1 25 mL/h, however this resembled pressure was 95/53. Labs are unremarkable except for low potassium which is replaced, hemoglobin 8.7 Objective - Vital Signs Vital signs: Vital Signs Temp 99.2 F 03/10/19 07:00 Pulse 74 03/10/19 07:00 Resp 16 03/10/19 08:00 BP 117/56 03/10/19 07:00 Pulse Ox 96 03/10/19 07:00 Intake & Output 03/09/19 03/10/19 03/10/19 18:59 06:59 18:59 Intake Total 780 Output Total 3300 5 Balance -2519 Intake: Oral 780 Output: Urine 3300 5 Other: Voiding Method Indwelling Catheter Indwelling Catheter - Exam GENERAL: The patient is alert and oriented x3, not in any acute distress. Well developed, well nourished. HEENT: Pupils are round and equally reacting to light. EOMI. No scleral icterus. No conjunctival pallor. Normocephalic, atraumatic. No pharyngeal erythema. No thyromegaly. CARDIOVASCULAR: S1 and S2 present. No murmurs, rubs, or gallops. PULMONARY: Chest is clear to auscultation, no wheezing or crackles. -ABDOMEN: Soft, nontender, nondistended, normoactive bowel sounds. No palpable organomegaly. open midline abdominal wound in the lower abdomen with wound VAC is in place MUSCULOSKELETAL: No joint swelling or deformity. EXTREMITIES: No cyanosis, clubbing, or pedal edema. NEUROLOGICAL: Gross neurological examination did not reveal any focal deficits. SKIN: No rashes. no petechiae. - Labs CBC & Chem 7: 03/10/19 08:03 03/10/19 08:03 Labs: Abnormal Lab Results - Last 24 Hours (Table) 03/09/19 03/09/19 03/09/19 Range/Units 11:37 17:00 21:10 RBC (3.80-5.40) m/uL Hgb (11.4-16.0) gm/dL Hct (34.0-46.0) % RDW (11.5-15.5) % Potassium (3.5-5.1) mmol/L BUN (7-17) mg/dL Glucose (74-99) mg/dL POC Glucose (mg/dL) 262 H 169 H 202 H (75-99) mg/dL Calcium (8.4-10.2) mg/dL 03/10/19 03/10/19 03/10/19 Range/Units 07:23 08:03 08:03 RBC 3.20 L (3.80-5.40) m/uL Hgb 8.7 L (11.4-16.0) gm/dL Hct 26.7 L (34.0-46.0) % RDW 17.4 H (11.5-15.5) % Potassium 3.2 L (3.5-5.1) mmol/L BUN 2 L (7-17) mg/dL Glucose 143 H (74-99) mg/dL POC Glucose (mg/dL) 131 H (75-99) mg/dL Calcium 7.7 L (8.4-10.2) mg/dL Microbiology - Last 24 Hours (Table) 03/06/19 16:30 Gram Stain - Final Abdomen Wound Culture - Final Stenotrophomonas maltophilia 03/06/19 16:30 Gram Stain - Final Abdomen Tissue Culture - Final Stenotrophomonas maltophilia Staphylococcus epidermidis Enterococcus faecium VRE 03/05/19 20:50 Blood Culture - Preliminary Blood No Growth after 96 hours 03/06/19 10:59 Gram Stain - Preliminary Abdomen Wound Culture - Preliminary Stenotrophomonas maltophilia Gram Neg Bacilli Enterococcus faecium VRE Assessment and Plan Assessment: Abdominal wound infection, status post hernia repair and mesh removal Chronic paroxysmal atrial fibrillation diabetes mellitus Hyperlipidemia Hypertension History of coronary artery disease Memory impairment Hypothyroidism Osteoarthritis with degenerative joint disease including bilateral shoulder pain and chronic leg pain with pinched nerve Urine incontinence Plan: this is a pleasant 74 years old female who presents with wound infection. Continue with antibiotics as per ID team. Follow-up recommendation by surgical team. Continue with IV fluids. Pain management. Labs and medication were reviewed.. Continue same treatment. Continue with symptomatic treatment. Resume home medication. Monitor lytes and vitals. DVT and GI prophylaxis. Further recommendations of the clinical course of the patient DVT prophylaxis: Subcutaneous heparin GI Prophylaxis: Protonix PT/OT: Pending Prognosis is guarded
[2019-03-10] MEDS ORDERED: VANCOMYCIN TROUGH DUE 1 EACH MISC MISCELLANE ONE (11:00)
[2019-03-10 12:11] LABS: Glucose,Whole Blood 219 mg/dL (75-99)
[2019-03-10] MEDS: DAPTOmycin 500 MG in SODIUM CHLORIDE 0.9% 50 ML IVPB SCH (13:19)
--- NOTE | 2019-03-10 15:21 | P.PN ---
Subjective Progress Note Date: 03/10/19 CHIEF COMPLAINT: Mesh infection, ventral hernia HISTORY OF PRESENT ILLNESS: The patient is a 74-year-old female status post evacuation of the hematoma including removal of abdominal wall mesh during hosp italization. CY, wound VAC was placed. Her pain is controlled. Tolerating regular diet. No new concerns. ROS: No reports of nausea and vomiting. No fevers or chills. No new chest pain. No productive sputum PHYSICAL EXAM: VITAL SIGNS: Reviewed CONSTITUTIONAL: Well developed and in no acute distress. EYES: Conjuctivae without sclera icterus. Extraocular movements grossly intact. HEAD, EARS, NOSE, THROAT: Moist buccal mucosa. Head is atraumatic, normocephalic. Hears conversational speech. No nasal drainage. NECK: Supple. No thyroidomegaly. RESPIRATORY: Non-labored respirations and equal bilateral excursions. CARDIOVASCULAR: Palpable 2+ radial pulses. Regular rate. Regular rhythm. ABDOMEN: Wound VAC intact without leaks. Moderate serosanguineous output over 300 mL in canister colostomy 24 hours MUSCULOSKELETAL: No gross deformity of the lower extremities noted. No clubbing. No cyanosis. SKIN: Good skin turgor. Well perfused. NEUROLOGIC: Cranial nerves I through XII grossly intact. No focal or lateralizing signs. PSYCH: Appropriate affect. Alert and oriented to person, place and time. CLINCAL LABS: White blood cell count normal ASSESSMENT: 1. Status post evacuation of hematoma along the midline incision with removal of previous mesh PLAN: 1. Wound VAC management per infectious disease 2. Recommend increased protein intake for optimal wound care and management Objective - Vital Signs Vital signs: Vital Signs Temp 98.0 F 03/10/19 15:00 Pulse 70 03/10/19 15:00 Resp 16 03/10/19 15:00 BP 131/70 03/10/19 15:00 Pulse Ox 97 03/10/19 15:00 Intake & Output 03/09/19 03/10/19 03/10/19 18:59 06:59 18:59 Intake Total 780 Output Total 3300 2075 2800 Balance -[id number] Intake: Oral 780 Output: Urine 3300 2075 2800 Other: Voiding Method Indwelling Catheter Indwelling Catheter - Labs CBC & Chem 7: 03/10/19 08:03 03/10/19 08:03 Labs: Abnormal Lab Results - Last 24 Hours (Table) 03/09/19 03/09/19 03/10/19 Range/Units 17:00 21:10 07:23 RBC (3.80-5.40) m/uL Hgb (11.4-16.0) gm/dL Hct (34.0-46.0) % RDW (11.5-15.5) % Potassium (3.5-5.1) mmol/L BUN (7-17) mg/dL Glucose (74-99) mg/dL POC Glucose (mg/dL) 169 H 202 H 131 H (75-99) mg/dL Calcium (8.4-10.2) mg/dL 03/10/19 03/10/19 03/10/19 Range/Units 08:03 08:03 12:09 RBC 3.20 L (3.80-5.40) m/uL Hgb 8.7 L (11.4-16.0) gm/dL Hct 26.7 L (34.0-46.0) % RDW 17.4 H (11.5-15.5) % Potassium 3.2 L (3.5-5.1) mmol/L BUN 2 L (7-17) mg/dL Glucose 143 H (74-99) mg/dL POC Glucose (mg/dL) 219 H (75-99) mg/dL Calcium 7.7 L (8.4-10.2) mg/dL Microbiology - Last 24 Hours (Table) 03/06/19 10:59 Gram Stain - Final Abdomen Wound Culture - Final Stenotrophomonas maltophilia Escherichia coli Enterococcus faecium VRE 03/06/19 10:59 Anaerobic Culture - Final Abdomen 03/06/19 16:30 Gram Stain - Final Abdomen Wound Culture - Final Stenotrophomonas maltophilia 03/06/19 16:30 Gram Stain - Final Abdomen Tissue Culture - Final Stenotrophomonas maltophilia Staphylococcus epidermidis Enterococcus faecium VRE 03/05/19 20:50 Blood Culture - Preliminary Blood No Growth after 96 hours Assessment and Plan (1) Infected hernioplasty mesh Current Visit: Yes Status: Acute Code(s): T85.79XA - INFECT/INFLM REACTION DUE TO OTH INT PROSTH DEV/GRFT, INIT SNOMED Code(s): 509629744 (2) Surgical site infection Current Visit: Yes Status: Acute Code(s): T81.49XA - INFECTION FOLLOWING A PROCEDURE, OTHER SURGICAL SITE, INIT SNOMED Code(s): 29649149 (3) Abdominal abscess Current Visit: No Status: Acute Code(s): QPT3712 - SNOMED Code(s): 63180036 (4) Acute blood loss anemia Current Visit: No Status: Acute Code(s): D62 - ACUTE POSTHEMORRHAGIC ANEMIA SNOMED Code(s): 806853572
[2019-03-10 17:13] LABS: Glucose,Whole Blood 143 mg/dL (75-99)
--- NOTE | 2019-03-10 18:45 | PN ---
PROGRESS NOTE DATE OF SERVICE: 03/10/2019 REASON FOR FOLLOWUP: Infected abdominal mesh. INTERVAL HISTORY: The patient is currently afebrile. The patient is breathing comfortably. The patient did have a wound VAC applied and denies having any pain or symptoms associated with it. No chest pain, shortness of breath or cough. PHYSICAL EXAMINATION: Blood pressure is 131/70 with a pulse of 70, temperature 98. She is 97% on room air. General description is an elderly female lying in bed in no distress. Respiratory system: Unlabored breathing, clear to auscultation anteriorly. Heart S1, S2. Regular rate and rhythm. Abdomen soft. Wound is covered with a wound VAC. Extremities: No edema of the feet. LABS: Hemoglobin is 8.7, white count 9.6, BUN of 2, creatinine 0.56. DIAGNOSTIC IMPRESSION AND PLAN: Patient with infected abdominal mesh. Culture positive for VRE and Stenotrophomonas. The patient is currently covered with daptomycin and Fortaz. The patient noticed to have significant bruise at her midline site plus with a history of recurrent abdominal hematoma, she may benefit from hematology evaluation to rule out any coagulopathy. Continue current antibiotics. Local wound care is ordered. Continue supportive care. MMODL / IJN: [id number] /
[2019-03-10 20:36] LABS: Glucose,Whole Blood 195 mg/dL (75-99)
[2019-03-10] MEDS: LATANOPROST 0.005% OPHTH DROPS 2.5 ML BTL BOTH EYES SCH (20:49)
[2019-03-10] MEDS: ATORVASTATIN 40 MG TAB PO SCH (20:50)
[2019-03-10] MEDS: DULoxetine HCL 60 MG CAPSULE.DR PO SCH (20:50)
[2019-03-11] MEDS: LEVOTHYROXINE 88 MCG TAB PO SCH (05:31)
[2019-03-11 07:29] LABS: Glucose,Whole Blood 129 mg/dL (75-99)
[2019-03-11] MEDS: INSULIN ASPART (NovoLOG) 100 UNIT/ML VIAL SQ SCH ×4 (07:32→21:51)
[2019-03-11] MEDS: amLODIPine 10 MG TAB PO SCH ×2 (07:41→09:46)
[2019-03-11] MEDS: FUROSEMIDE 40 MG TAB PO SCH ×2 (07:41→16:15)
[2019-03-11] MEDS: LOSARTAN 50 MG TAB PO SCH ×2 (07:41→09:46)
[2019-03-11] MEDS: HEPARIN SODIUM,PORCINE 5,000 UNIT/ML 1 ML VIAL SQ SCH ×2 (07:41→15:24)
[2019-03-11] MEDS: POTASSIUM CHLORIDE ER 20 MEQ TAB.ER PO SCH ×3 (07:41→11:37)
[2019-03-11] MEDS: PANTOPRAZOLE 40 MG TABLET PO SCH (07:42)
[2019-03-11] MEDS: METOPROLOL TARTRATE 50 MG TAB PO SCH ×2 (07:42→16:15)
[2019-03-11] MEDS: oxyCODONE ER 20 MG TAB.ER.12H PO SCH ×2 (07:42→21:54)
[2019-03-11] MEDS: AMIODARONE 100 MG TAB PO SCH (07:45)
--- NOTE | 2019-03-11 08:25 | P.PN ---
Subjective this is a pleasant 74 years old female with past medical history of chronic paroxysmal atrial fibrillation, coronary artery disease, diabetes mellitus, hyperlipidemia, hypertension, memory impairment, hypothyroidism, posterior arthritis of degenerative joint disease including bilateral shoulder pain and chronic low back pain with pinched nerve, urinary incontinence, chronic leukocytosis, she is a status post incisional hernia repair with open surgery and mesh placement on 01/18/2019. she was recently hospitalized from 02/20- for her abdominal wound, she still have significant draining from the MASTER tube with nausea vomiting. Patient has been followed here by surgery and infectious disease team. For her abdominal wound infection. Patient currently on ceftazidime and IV vancomycin with normal saline. Patient has noticed to have a clot in her abdominal wound needing reevaluation by surgical team yesterday. Her once culture is growing enterococcus and st.maltophilia. her pain is controlled and her abdominal side however her tenderness get worse with movement 03/10/2019 Patient is fully awake and oriented. She couldn't recognize family members me from yesterday. She is able to eat and drink however she is filling and well today, she felt nausea with no vomiting and Zofran is provided for her. She has to her usual abdominal pain of every day from her abdominal wound. No new abdominal pain or pain anywhere else. She denies to me any other symptoms. No chest pain or dyspnea or headache. She still have some loose bowel movement and given less laxative. Patient got wound VAC today. Patient remains on ceftazidime and daptomycin as per ID team. Blood pressure this morning is 117/56 and currently she is on normal saline and 1 25 mL/h, however this resembled pressure was 95/53. Labs are unremarkable except for low potassium which is replaced, hemoglobin 8.7 03/11/2019 Patient is awake and oriented 9 chest pain or dyspnea. Tolerating diet well, abdominal pain is as usual with wound VAC in place. She has no bowel movement yesterday and only few the day before. She is passing gases. She has a big bruise around her left midline around the frontal half of the middle left arm, by 3-4 inches on every direction. Also she had a hematoma of the her abdominal wound at the other day, we will call hematology consult. Vitas looks stable, blood pressure 93/54, which is similar to her baseline. Labs from this morning are pending. Sugar controlled. Patient remains on daptomycin and ceftazidime and normal saline at 75 ml/h Objective - Vital Signs Vital signs: Vital Signs Temp 98.2 F 03/11/19 07:00 Pulse 78 03/11/19 07:00 Resp 17 03/11/19 07:00 BP 93/54 03/11/19 07:00 Pulse Ox 92 L 03/11/19 07:00 Intake & Output 03/10/19 03/11/19 03/11/19 18:59 06:59 18:59 Intake Total 400 Output Total 2800 3275 Balance -2800 -2875 Intake: Oral 400 Output: Urine 2800 3275 Other: Voiding Method Indwelling Catheter Indwelling Catheter - Exam GENERAL: The patient is alert and oriented x3, not in any acute distress. Well developed, well nourished. HEENT: Pupils are round and equally reacting to light. EOMI. No scleral icterus. No conjunctival pallor. Normocephalic, atraumatic. No pharyngeal erythema. No thyromegaly. CARDIOVASCULAR: S1 and S2 present. No murmurs, rubs, or gallops. PULMONARY: Chest is clear to auscultation, no wheezing or crackles. -ABDOMEN: Soft, nontender, nondistended, normoactive bowel sounds. No palpable organomegaly. open midline abdominal wound in the lower abdomen with wound VAC is in place MUSCULOSKELETAL: No joint swelling or deformity. EXTREMITIES: No cyanosis, clubbing, or pedal edema. NEUROLOGICAL: Gross neurological examination did not reveal any focal deficits. SKIN: No rashes. no petechiae. - Labs CBC & Chem 7: 03/10/19 08:03 03/10/19 08:03 Labs: Abnormal Lab Results - Last 24 Hours (Table) 03/10/19 03/10/19 03/10/19 Range/Units 08:03 08:03 12:09 RBC 3.20 L (3.80-5.40) m/uL Hgb 8.7 L (11.4-16.0) gm/dL Hct 26.7 L (34.0-46.0) % RDW 17.4 H (11.5-15.5) % Potassium 3.2 L (3.5-5.1) mmol/L BUN 2 L (7-17) mg/dL Glucose 143 H (74-99) mg/dL POC Glucose (mg/dL) 219 H (75-99) mg/dL Calcium 7.7 L (8.4-10.2) mg/dL 03/10/19 03/10/19 03/11/19 Range/Units 17:11 20:34 07:18 RBC (3.80-5.40) m/uL Hgb (11.4-16.0) gm/dL Hct (34.0-46.0) % RDW (11.5-15.5) % Potassium (3.5-5.1) mmol/L BUN (7-17) mg/dL Glucose (74-99) mg/dL POC Glucose (mg/dL) 143 H 195 H 129 H (75-99) mg/dL Calcium (8.4-10.2) mg/dL Microbiology - Last 24 Hours (Table) 03/05/19 20:50 Blood Culture - Preliminary Blood No Growth after 120 hours 03/06/19 16:30 Anaerobic Culture - Final Abdomen 03/06/19 16:30 Anaerobic Culture - Final Abdomen 03/06/19 10:59 Gram Stain - Final Abdomen Wound Culture - Final Stenotrophomonas maltophilia Escherichia coli Enterococcus faecium VRE 03/06/19 10:59 Anaerobic Culture - Final Abdomen Assessment and Plan Assessment: Abdominal wound infection, status post hernia repair and mesh removal Chronic paroxysmal atrial fibrillation Hematoma/bruise around the left midline diabetes mellitus Hyperlipidemia Hypertension History of coronary artery disease Memory impairment Hypothyroidism Osteoarthritis with degenerative joint disease including bilateral shoulder pain and chronic leg pain with pinched nerve Urine incontinence Plan: this is a pleasant 74 years old female who presents with wound infection. C ontinue with antibiotics as per ID team. Follow-up recommendation by surgical team. Continue with IV fluids. Pain management. Call hematology consult Labs and medication were reviewed.. Continue same treatment. Continue with symptomatic treatment. Resume home medication. Monitor lytes and vitals. DVT and GI prophylaxis. Further recommendations of the clinical course of the patient DVT prophylaxis: Subcutaneous heparin GI Prophylaxis: Protonix PT/OT: Pending Prognosis is guarded
[2019-03-11 08:31] LABS: Anisocytosis Slight; Basophils # (A) 0.1 k/uL (0-0.2); Basophils % (A) 1 %; Eosinophils # (A) 0.5 k/uL (0-0.7); Eosinophils % (A) 6 %; HCT 25.6 % (34.0-46.0); HGB 8.4 gm/dL (11.4-16.0); Hypochromasia Moderate; Lymphocytes # (A) 1.5 k/uL (1.0-4.8); Lymphocytes % (A) 17 %; MCH 27.4 pg (25.0-35.0); MCHC 32.8 g/dL (31.0-37.0); MCV 83.6 fL (80.0-100.0); Monocytes # (A) 0.5 k/uL (0-1.0); Monocytes % (A) 5 %; Neutrophils # (A) 6.1 k/uL (1.3-7.7); Neutrophils % (A) 69 %; Platelet Count 461 k/uL (150-450); Poikilocytosis Moderate; RBC 3.06 m/uL (3.80-5.40); RDW 16.7 % (11.5-15.5); WBC 8.9 k/uL (3.8-10.6)
[2019-03-11 08:45] LABS: African American GFR (CKD) >90 (>60 ml/min/1.73 sqM); Anion Gap 6 mmol/L; Blood Urea Nitrogen 2 mg/dL (7-17); Carbon Dioxide 30 mmol/L (22-30); Chloride 103 mmol/L (98-107); Glucose 117 mg/dL (74-99); Magnesium 1.7 mg/dL (1.6-2.3); Sodium 139 mmol/L (137-145)
[2019-03-11 08:59] LABS: INR 0.9 (<1.2); Prothrombin Time 9.5 sec (9.0-12.0)
[2019-03-11 09:18] LABS: Partial Thromboplastin Time 20.5 sec (22.0-30.0)
[2019-03-11 09:22] LABS: Reticulocyte % 4.4 % (0.5-2.0)
[2019-03-11] MEDS ORDERED: MAGNESIUM SULFATE-D5W PMX 1 GM in DEXTROSE/WATER 1 100ML.BAG IVPB ONE ×2 (09:30→11:58)
--- NOTE | 2019-03-11 10:46 | P.PN ---
Subjective Progress Note Date: 03/11/19 CHIEF COMPLAINT: Abdominal pain, nausea HISTORY OF PRESENT ILLNESS: Patient is status post removal of infected mesh from previous hernia repair. Patient examined this morning at the bedside. She denies abdominal pain. Tolerating diet without nausea or vomiting. Wound VAC placed this weekend with sanguinous drainage. Hemoglobin remained stable. Hemoglobin this morning 8.4. Potassium 3.0. Magnesium 1.7. PHYSICAL EXAM: VITAL SIGNS: Reviewed. GENERAL: Well-developed in no acute distress. HEENT: No sclera icterus. Extraocular movements grossly intact. Moist buccal mucosa. Head is atraumatic, normocephalic. ABDOMEN: Soft. Nondistended. Wound vac to abdomen. NEUROLOGIC: Alert and oriented. Cranial nerves II through XII grossly intact. ASSESSMENT: 1. History of recent incisional hernia repair, complicated by rectal sheath hemorrhage, December 2018 2. intra-abdominal abscess, status post removal of infected mesh, cultures positive for enterococcus faecium VRE and stenotrophomonas 3. Acute blood loss anemia, and unexpected but potential complication of surgery PLAN: -Continue diet as tolerated -Continue antibiotics. Infectious disease on consult -Continue wound VAC -Continue to monitor hemoglobin -Incentive spirometer -Increase activity as tolerated. Patient encouraged to be out of bed and ambulating in the hallway today -Patient would like to return to [facility] at time of discharge Nurse practitioner note has been reviewed by physician. Signing provider agrees with the documented findings, assessment, and plan of care. Objective - Vital Signs Vital signs: Vital Signs Temp 98.2 F 03/11/19 07:00 Pulse 64 03/11/19 09:33 Resp 17 03/11/19 07:00 BP 103/62 03/11/19 09:33 Pulse Ox 92 L 03/11/19 07:00 Intake & Output 03/10/19 03/11/19 03/11/19 18:59 06:59 18:59 Intake Total 400 Output Total 2800 3275 Balance -2800 -2875 Intake: Oral 400 Output: Urine 2800 3275 Other: Voiding Method Indwelling Catheter Indwelling Catheter - Labs CBC & Chem 7: 03/11/19 07:35 03/11/19 07:35 Labs: Abnormal Lab Results - Last 24 Hours (Table) 03/10/19 03/10/19 03/10/19 Range/Units 12:09 17:11 20:34 RBC (3.80-5.40) m/uL Hgb (11.4-16.0) gm/dL Hct (34.0-46.0) % RDW (11.5-15.5) % Plt Count (150-450) k/uL Retic Count (0.5-2.0) % APTT (22.0-30.0) sec Potassium (3.5-5.1) mmol/L BUN (7-17) mg/dL Glucose (74-99) mg/dL POC Glucose (mg/dL) 219 H 143 H 195 H (75-99) mg/dL Calcium (8.4-10.2) mg/dL 03/11/19 03/11/19 03/11/19 Range/Units 07:18 07:35 07:35 RBC 3.06 L (3.80-5.40) m/uL Hgb 8.4 L (11.4-16.0) gm/dL Hct 25.6 L (34.0-46.0) % RDW 16.7 H (11.5-15.5) % Plt Count 461 H (150-450) k/uL Retic Count (0.5-2.0) % APTT (22.0-30.0) sec Potassium 3.0 L (3.5-5.1) mmol/L BUN 2 L (7-17) mg/dL Glucose 117 H (74-99) mg/dL POC Glucose (mg/dL) 129 H (75-99) mg/dL Calcium 8.0 L (8.4-10.2) mg/dL 03/11/19 03/11/19 Range/Units 07:35 07:35 RBC (3.80-5.40) m/uL Hgb (11.4-16.0) gm/dL Hct (34.0-46.0) % RDW (11.5-15.5) % Plt Count (150-450) k/uL Retic Count 4.4 H (0.5-2.0) % APTT 20.5 L (22.0-30.0) sec Potassium (3.5-5.1) mmol/L BUN (7-17) mg/dL Glucose (74-99) mg/dL POC Glucose (mg/dL) (75-99) mg/dL Calcium (8.4-10.2) mg/dL Microbiology - Last 24 Hours (Table) 03/05/19 20:50 Blood Culture - Preliminary Blood No Growth after 120 hours 03/06/19 16:30 Anaerobic Culture - Final Abdomen 03/06/19 16:30 Anaerobic Culture - Final Abdomen 03/06/19 10:59 Gram Stain - Final Abdomen Wound Culture - Final Stenotrophomonas maltophilia Escherichia coli Enterococcus faecium VRE 03/06/19 10:59 Anaerobic Culture - Final Abdomen
[2019-03-11] MEDS: SODIUM CHLORIDE 0.9% 1,000 ML IV SCH ×2 (11:37→17:31)
[2019-03-11 12:35] LABS: Glucose,Whole Blood 234 mg/dL (75-99)
[2019-03-11] MEDS: DAPTOmycin 500 MG in SODIUM CHLORIDE 0.9% 50 ML IVPB SCH (14:35)
[2019-03-11] MEDS: HYDROmorphone 0.5 MG/0.5 ML SYRINGE IVP PRN (15:22)
--- NOTE | 2019-03-11 15:32 | PN ---
PROGRESS NOTE DATE OF SERVICE: 03/11/2019 REASON FOR FOLLOWUP: Infected abdominal mesh. INTERVAL HISTORY: The patient is currently afebrile. The patient is breathing comfortably. Denies having any chest pain or cough. No nausea, no vomiting. No abdominal pain or any diarrhea. PHYSICAL EXAMINATION: Blood pressure 117/82 with a pulse of 72, temperature 98.3, she is 98% on room air. General description is an elderly female, lying in bed in no distress. RESPIRATORY SYSTEM: Unlabored breathing, clear to auscultation anteriorly. HEART: S1, S2. Regular rate and rhythm. ABDOMEN: Soft, clinically covered with the wound VAC. EXTREMITIES: No edema of the feet. LABS: Hemoglobin 8.4, white count of 8.9, BUN of 10, creatinine 0.62. Abdominal culture also grew ESBL E coli. DIAGNOSTIC IMPRESSION AND PLAN: Patient with infected abdominal mesh, status post removal of the same. Culture of the pathogen now showing ESBL E coli as well. Antibiotic adjusted to Invanz 1 g daily in addition to daptomycin, will add Bactrim DS to cover for the Stenotrophomonas and monitor her clinical course closely. Local wound care to continue with wound VAC. [facility]. MMODL / IJN: [id number] /
[2019-03-11] MEDS: ERTAPENEM 1 GM in SODIUM CHLORIDE 0.9% 50 ML IVPB SCH (15:46)
[2019-03-11] MEDS: ACETAMINOPHEN TAB 325 MG TAB PO PRN (16:15)
[2019-03-11 17:18] LABS: Glucose,Whole Blood 163 mg/dL (75-99)
[2019-03-11 18:15] LABS: % Iron Saturation 4.66 (12.00-45.00)
[2019-03-11 21:04] LABS: Glucose,Whole Blood 199 mg/dL (75-99)
[2019-03-11] MEDS: DULoxetine HCL 60 MG CAPSULE.DR PO SCH (21:38)
[2019-03-11] MEDS: SULFAMETHOX-TMP 800-160MG 1 EACH TAB PO SCH (21:38)
[2019-03-11] MEDS: ATORVASTATIN 40 MG TAB PO SCH (21:38)
[2019-03-11] MEDS: LATANOPROST 0.005% OPHTH DROPS 2.5 ML BTL BOTH EYES SCH (21:52)
--- NOTE | 2019-03-11 22:52 | P.CONS ---
History of Present Illness - Reason for Consult Consult date: 03/11/19 Chronic anemia, wound infection, abd wall hematoma - History of Present Illness The patient is a 74-year-old white female with multiple medical problems. She is currently admitted for wound infection of her abdominal wound, following hernia repair and mesh placement. Consult was placed for chronic anemia. The patient's hemoglobin has been low, going back to 12/16. She is required blood transfusions about 3 times since then, including this admission. During this. The patient has had multiple hospital admissions including CABG in 12/16, ischemic bowel with perforation requiring ostomy placement during that admissi on, reversal of colostomy in 04/17, dehydration and high blood sugars 11/16, hernia repair with mesh placement 01/17, admission for wound infection in late 02/16, and subsequently this admission. The patient did develop a rectus sheath hematoma after removal of the mesh. Hemoglobin remained stable. Low hemoglobins noted in the EMR were during these admissions. In 11/16, hemoglobin had improved to 11.3 prior to dropping again. The patient denies any obvious bleeding in the stool or urine. Last colonoscopy/EGD were more than 5 years ago. Review of labs in the EMR show that her hemoglobins were mostly normal prior to 12/16. Creatinine is within normal limits. coags were normal. The patient denied any prior history suggestive of a bleeding disorder, including multiple surgeries without any bleeding complications Review of Systems Constitutional: Reports fatigue, Reports weakness Eyes: denies blurred vision, denies pain Ears: deny: decreased hearing, ear discharge, earache, tinnitus Ears, nose, mouth and throat: Denies headache, Denies sore throat Cardiovascular: Reports as per HPI Respiratory: Denies cough Gastrointestinal: Reports as per HPI Genitourinary: Denies dysuria, Denies hematuria Menstruation: Reports postmenopausal Musculoskeletal: Denies myalgias Integumentary: Reports as per HPI, Reports wounds Neurological: Reports weakness, Denies numbness Psychiatric: Denies anxiety, Denies depression Endocrine: Reports fatigue, Reports high blood sugars Hematologic/Lymphatic: Reports as per HPI Past Medical History Past Medical History: Atrial Fibrillation, Coronary Artery Disease (CAD), D iabetes Mellitus, Hyperlipidemia, Hypertension, Memory Impairment, Osteoarthritis (OA), Thyroid Disorder, Vascular Disorder Additional Past Medical History / Comment(s): 01/18/19 incisional hernia repair- open with mesh and has drain, paroxysmal Afib, NIDDM type II, PAD, decreased circulation to R lower extremity-pt states had several unsuccessful attempts at placing artificial artery, bowel surgery d/t blood clot to colon post operatively, frequent diarrhea, urinary incontinence, chronic elevated WBC, chronic low back pain/pinched nerve, bilateral shoulder pain-DJD, "forgetful", hypothyroid, vertigo at times. History of Any Multi-Drug Resistant Organisms: ESBL Year Discovered:: 03/04/18 MDRO Source:: BODY FLUID ASPIRATE Past Surgical History: Appendectomy, Bowel Resection, Breast Surgery, Cholecystectomy, Coronary Bypass/CABG, Heart Catheterization, Hernia Repair, Joint Replacement, Orthopedic Surgery Additional Past Surgical History / Comment(s): 01/18/19 incisional hernia repair- open with mesh, 12/11/17 CABG 4 vessel, 12/20/17 colectomy/ileostomy with reversal, R leg attempted bypasses with artificial artery which pt states were unsuccessful, L breast benign tumor removed, bilateral total knee arthroplasties, R rotator cuff repair, low back epidural injections, piccs-since removed. Past Anesthesia/Blood Transfusion Reactions: No Reported Reaction Additional Past Anesthesia/Blood Transfusion Reaction / Comm: Pt has recently received blood and also years ago received blood without reaction. Past Psychological History: Anxiety, Depression Additional Psychological History / Comment(s): Pt lives with her spouse in [place] and they winter in [place]. She lately has been using a walker to ambulate d/t weakness, but normally uses a cane. She no longer drives d/t rotator cuff problems, her spouse drives. She is otherwise independent. Smoking Status: Former smoker Past Alcohol Use History: None Reported Additional Past Alcohol Use History / Comment(s): Pt started smoking in 1964 and quit in 2007. She was a ppd smoker. Past Drug Use History: None Reported - Past Family History Mother Family Medical History: Cancer Additional Family Medical History / Comment(s): Uterine cancer. Father Family Medical History: Congestive Heart Failure (CHF) Medications and Allergies Home Medications Medication Instructions Recorded Confirmed Type DULoxetine HCL [Cymbalta] 60 mg PO HS@2100 12/14/16 03/05/19 History Ergocalciferol (Vitamin D2) 50,000 unit PO COHEN 12/14/16 03/05/19 History [Vitamin D2] Amiodarone [Cordarone] 100 mg PO DAILY@0800 03/02/18 03/05/19 History Furosemide [Lasix] 40 mg PO BID@0800,1700 03/02/18 03/05/19 History Latanoprost/Pf [Latanoprost 0.005% 1 drop BOTH EYES HS@2100 03/02/18 03/05/19 History Eye Drop] Cilostazol [Pletal] 100 mg PO DAILY@0800 11/15/18 03/05/19 History Losartan Potassium 100 mg PO DAILY@0800 11/15/18 03/05/19 History Metoprolol Tartrate [Lopressor] 50 mg PO BID@0800,1700 11/15/18 03/05/19 History Potassium Chloride ER [K-Dur 20] 20 meq PO DIRECTED 11/15/18 03/05/19 History amLODIPine [Norvasc] 10 mg PO DAILY@0800 11/15/18 03/05/19 History metFORMIN HCL [Glucophage] 500 mg PO BID@0800,1700 11/15/18 03/05/19 History Loperamide [Imodium] 2 mg PO BID@0800,1700 02/19/19 03/05/19 History Ensure Clear 1 can PO TID@0800,1200,1700 03/05/19 03/05/19 History L.acidoph,Paracasei, B.lactis 1 cap PO DAILY@1700 03/05/19 03/05/19 History [Probiotic] Levothyroxine Sodium [Synthroid] 88 mcg PO DAILY@0600 03/05/19 03/05/19 History Magnesium Hydroxide [Milk of 2,400 mg PO DAILY PRN 03/05/19 03/05/19 History Magnesia] Na Phos,M-B/Na Phos,Di-Ba [Fleet 133 ml RECTAL DAILY PRN 03/05/19 03/05/19 History Adult] Ondansetron HCl [Zofran] 8 mg PO DAILY PRN 03/05/19 03/05/19 History Potassium Chloride ER [K-Dur 20] 40 meq PO ONCE 03/05/19 03/05/19 History oxyCODONE ER [OxyCONTIN] 20 mg PO BID@0800,2100 03/05/19 03/05/19 History predniSONE 10 mg PO DAILY@0800 03/05/19 03/05/19 History DAPTOmycin [Cubicin] 500 mg IV DAILY #14 bag 03/11/19 Rx Ertapenem [INVanz] 1 gm IVPB Q24H #14 bag 03/11/19 Rx Sulfamethox-Tmp 800-160Mg [Bactrim 1 tab PO Q12HR #28 tab 03/11/19 Rx DS 800-160 mg] Allergies Allergy/AdvReac Type Severity Reaction Status Date / Time morphine AdvReac Intermediate Itching Verified 03/05/19 19:59 Physical Exam Vitals: Vital Signs Temp Pulse Resp BP Pulse Ox 03/11/19 07:00 98.2 F 78 17 93/54 92 L 03/10/19 22:09 98.9 F 69 16 107/70 98 03/10/19 16:00 16 03/10/19 15:00 98.0 F 70 16 131/70 97 Intake and Output 03/10/19 03/11/19 03/11/19 22:59 06:59 14:59 Intake Total 400 Output Total 3275 Balance 400 -3275 Intake: Oral 400 Output: Urine 3275 Other: Voiding Method Indwelling Catheter - Constitutional General appearance: no acute distress - EENT Eyes: EOMI, PERRLA ENT: hearing grossly normal, normal oropharynx - Neck Neck: no lymphadenopathy Thyroid: bilateral: normal size - Respiratory Respiratory: bilateral: CTA - Cardiovascular Rhythm: regular Heart sounds: normal: S1, S2 - Gastrointestinal General gastrointestinal: normal bowel sounds, soft - Integumentary wound VAC midline abdomen No unusual bruising, petechia purpura - Neurologic Neurologic: CNII-XII intact - Musculoskeletal Musculoskeletal: generalized weakness, strength equal bilaterally - Psychiatric Psychiatric: A&O x's 3, appropriate affect Results CBC & Chem 7: 03/11/19 07:35 03/11/19 12:56 Labs: Abnormal Lab Results - Last 24 Hours (Table) 03/10/19 03/10/19 03/10/19 Range/Units 12:09 17:11 20:34 RBC (3.80-5.40) m/uL Hgb (11.4-16.0) gm/dL Hct (34.0-46.0) % RDW (11.5-15.5) % Plt Count (150-450) k/uL Potassium (3.5-5.1) mmol/L BUN (7-17) mg/dL Glucose (74-99) mg/dL POC Glucose (mg/dL) 219 H 143 H 195 H (75-99) mg/dL Calcium (8.4-10.2) mg/dL 03/11/19 03/11/19 03/11/19 Range/Units 07:18 07:35 07:35 RBC 3.06 L (3.80-5.40) m/uL Hgb 8.4 L (11.4-16.0) gm/dL Hct 25.6 L (34.0-46.0) % RDW 16.7 H (11.5-15.5) % Plt Count 461 H (150-450) k/uL Potassium 3.0 L (3.5-5.1) mmol/L BUN 2 L (7-17) mg/dL Glucose 117 H (74-99) mg/dL POC Glucose (mg/dL) 129 H (75-99) mg/dL Calcium 8.0 L (8.4-10.2) mg/dL Microbiology - Last 24 Hours (Table) 03/05/19 20:50 Blood Culture - Preliminary Blood No Growth after 120 hours 03/06/19 16:30 Anaerobic Culture - Final Abdomen 03/06/19 16:30 Anaerobic Culture - Final Abdomen 03/06/19 10:59 Gram Stain - Final Abdomen Wound Culture - Final Stenotrophomonas maltophilia Escherichia coli Enterococcus faecium VRE 03/06/19 10:59 Anaerobic Culture - Final Abdomen Comments: operative reports/procedure notes reviewed Pathology reports reviewed Chest x-ray: report reviewed CT scan - abdomen: report reviewed CT scan - pelvis: report reviewed Assessment and Plan (1) Acute on chronic anemia Narrative/Plan: The patient has been chronically anemic now since 12/16, with intermittent improvements. Drop in hemoglobin have been associated with acute illnesses and hospitalizations. In between the patient has shown at least partial improvement. - The patient had no history of anemia prior to her cardiac surgery. Based on the clinical history, it appears that her anemia is most likely due to a combination of blood loss related to surgical procedures, and more so, ongoing inflammation related to her illnesses and procedures. - During this hospitalization, again the patient had marked ongoing inflammation, as well as some degree of blood loss related to her surgical procedure. This resulted in significant drop in hemoglobin from baseline. Agree with transfusion for hemoglobin less than 7. Hemoglobin has been stable since. - Anemia workup will be ordered\\ - Continue to monitor and transfuse for hemoglobin less than 7 Current Visit: Yes Status: Acute Code(s): D64.9 - ANEMIA, UNSPECIFIED SNOMED Code(s): 058811867 (2) Abdominal wall hematoma Narrative/Plan: This is a known possible postprocedure complication. The patient's coags are normal. Her clinical history is not suggestive in any way of any underlying bleeding disorder. She was on Pletal leading up to this admission. In addition the drop in hemoglobin may have been somewhat more performed because of underlying inflammation from her active wound and related marrow suppression. Therefore at this time any underlying clotting disorder is not suspected. No further workup is recommended in this regard, unless any new issues occur Current Visit: Yes Status: Acute Code(s): S30.1XXA - CONTUSION OF ABDOMINAL WALL, INITIAL ENCOUNTER SNOMED Code(s): 452475924 Plan: The patient has multiple other medical problems. Defer to the admitting service and other consultants for management of the same.
[2019-03-12] MEDS: HEPARIN SODIUM,PORCINE 5,000 UNIT/ML 1 ML VIAL SQ SCH ×4 (00:22→23:37)
[2019-03-12] MEDS: LEVOTHYROXINE 88 MCG TAB PO SCH (05:40)
[2019-03-12] MEDS: ONDANSETRON 4 MG/2 ML VIAL IVP PRN (07:22)
[2019-03-12] MEDS: SULFAMETHOX-TMP 800-160MG 1 EACH TAB PO SCH ×2 (07:22→20:36)
[2019-03-12] MEDS: LOSARTAN 50 MG TAB PO SCH (07:22)
[2019-03-12] MEDS: PANTOPRAZOLE 40 MG TABLET PO SCH (07:22)
[2019-03-12] MEDS: METOPROLOL TARTRATE 50 MG TAB PO SCH ×2 (07:22→16:48)
[2019-03-12] MEDS: POTASSIUM CHLORIDE ER 20 MEQ TAB.ER PO SCH ×3 (07:22→17:29)
[2019-03-12] MEDS: FUROSEMIDE 40 MG TAB PO SCH ×2 (07:22→16:48)
[2019-03-12] MEDS: oxyCODONE ER 20 MG TAB.ER.12H PO SCH ×2 (07:23→20:40)
[2019-03-12] MEDS: AMIODARONE 100 MG TAB PO SCH (07:23)
[2019-03-12] MEDS: INSULIN ASPART (NovoLOG) 100 UNIT/ML VIAL SQ SCH ×4 (07:25→20:37)
[2019-03-12 07:32] LABS: Glucose,Whole Blood 118 mg/dL (75-99)
[2019-03-12 08:04] LABS: Protein, Total 4.2 g/dL (6.2-8.2)
[2019-03-12 08:10] LABS: African American GFR (CKD) >90 (>60 ml/min/1.73 sqM); Anion Gap 7 mmol/L; Blood Urea Nitrogen <2 mg/dL (7-17); Calcium 8.1 mg/dL (8.4-10.2); Carbon Dioxide 26 mmol/L (22-30); Chloride 104 mmol/L (98-107); Glucose 107 mg/dL (74-99); Magnesium 1.9 mg/dL (1.6-2.3); Potassium 3.4 mmol/L (3.5-5.1); Sodium 137 mmol/L (137-145)
--- NOTE | 2019-03-12 08:13 | P.PN ---
Subjective this is a pleasant 74 years old female with past medical history of chronic paroxysmal atrial fibrillation, coronary artery disease, diabetes mellitus, hyperlipidemia, hypertension, memory impairment, hypothyroidism, posterior arthritis of degenerative joint disease including bilateral shoulder pain and chronic low back pain with pinched nerve, urinary incontinence, chronic leukocytosis, she is a status post incisional hernia repair with open surgery and mesh placement on 01/18/2019. she was recently hospitalized from 02/20- for her abdominal wound, she still have significant draining from the MASTER tube with nausea vomiting. Patient has been followed here by surgery and infectious disease team. For her abdominal wound infection. Patient currently on ceftazidime and IV vancomycin with normal saline. Patient has noticed to have a clot in her abdominal wound needing reevaluation by surgical team yesterday. Her once culture is growing enterococcus and st.maltophilia. her pain is controlled and her abdominal side however her tenderness get worse with movement 03/10/2019 Patient is fully awake and oriented. She couldn't recognize family members me from yesterday. She is able to eat and drink however she is filling and well today, she felt nausea with no vomiting and Zofran is provided for her. She has to her usual abdominal pain of every day from her abdominal wound. No new abdominal pain or pain anywhere else. She denies to me any other symptoms. No chest pain or dyspnea or headache. She still have some loose bowel movement and given less laxative. Patient got wound VAC today. Patient remains on ceftazidime and daptomycin as per ID team. Blood pressure this morning is 117/56 and currently she is on normal saline and 1 25 mL/h, however this resembled pressure was 95/53. Labs are unremarkable except for low potassium which is replaced, hemoglobin 8.7 03/11/2019 Patient is awake and oriented 9 chest pain or dyspnea. Tolerating diet well, abdominal pain is as usual with wound VAC in place. She has no bowel movement yesterday and only few the day before. She is passing gases. She has a big bruise around her left midline around the frontal half of the middle left arm, by 3-4 inches on every direction. Also she had a hematoma of the her abdominal wound at the other day, we will call hematology consult. Vitas looks stable, blood pressure 93/54, which is similar to her baseline. Labs from this morning are pending. Sugar controlled. Patient remains on daptomycin and ceftazidime and normal saline at 75 ml/h 03/12/2019 Patient awake and alert, she had 3 episodes of nonbloody vomiting associated with some upper abdominal pain, her nausea has been controlled with Zofran. She got tow bowel movements since morning which they are semisolid. Vitals are stable and blood pressure is slightly better at 107/52, last night blood pressure was on the low side 96/52. Heart rate is 74. Last time she had fever was on 03/08. Yesterday her antibiotics were changed from ceftazidime and to In vanz and Bactrim, also she continues on daptomycin and normal saline at 75 mL/h. She is also on oral Lasix 40 mg twice daily. Because blood pressure on the low side. Norvasc 10 mg yesterday, we will lower her losartan from 100-50 mg daily. Hematology input is appreciated, no further clots and workup is needed however she has chronic anemia but workup has been ordered as well. Objective - Vital Signs Vital signs: Vital Signs Temp 98.3 F 03/12/19 05:00 Pulse 74 03/12/19 05:00 Resp 20 03/12/19 05:00 BP 107/52 03/12/19 05:00 Pulse Ox 97 03/12/19 05:00 Intake & Output 03/11/19 03/12/19 03/12/19 18:59 06:59 18:59 Intake Total 600 Output Total 600 3800 250 Balance -600 -3200 -250 Intake: Oral 600 Output: Drainage 250 Right Abdomen 250 Urine 600 3800 Uretheral (Almaguer) 1900 Other: Voiding Method Indwelling Catheter Indwelling Catheter # Voids 0 # Bowel Movements 0 - Exam GENERAL: The patient is alert and oriented x3, not in any acute distress. Well developed, well nourished. HEENT: Pupils are round and equally reacting to light. EOMI. No scleral icterus. No conjunctival pallor. Normocephalic, atraumatic. No pharyngeal erythema. No thyromegaly. CARDIOVASCULAR: S1 and S2 present. No murmurs, rubs, or gallops. PULMONARY: Chest is clear to auscultation, no wheezing or crackles. -ABDOMEN: Soft, nontender, nondistended, normoactive bowel sounds. No palpable organomegaly. open midline abdominal wound in the lower abdomen with wound VAC is in place MUSCULOSKELETAL: No joint swelling or deformity. EXTREMITIES: No cyanosis, clubbing, or pedal edema. NEUROLOGICAL: Gross neurological examination did not reveal any focal deficits. SKIN: No rashes. no petechiae. - Labs CBC & Chem 7: 03/11/19 07:35 03/11/19 12:56 Labs: Abnormal Lab Results - Last 24 Hours (Table) 03/11/19 03/11/19 03/11/19 Range/Units 07:35 07:35 07:35 RBC 3.06 L (3.80-5.40) m/uL Hgb 8.4 L (11.4-16.0) gm/dL Hct 25.6 L (34.0-46.0) % RDW 16.7 H (11.5-15.5) % Plt Count 461 H (150-450) k/uL Retic Count (0.5-2.0) % APTT 20.5 L (22.0-30.0) sec Potassium 3.0 L (3.5-5.1) mmol/L BUN 2 L (7-17) mg/dL Glucose 117 H (74-99) mg/dL POC Glucose (mg/dL) (75-99) mg/dL Calcium 8.0 L (8.4-10.2) mg/dL Iron (50-170) ug/dL % Saturation (12.00-45.00) Total Protein (PEP) (6.2-8.2) g/dL 03/11/19 03/11/19 03/11/19 Range/Units 07:35 07:35 07:35 RBC (3.80-5.40) m/uL Hgb (11.4-16.0) gm/dL Hct (34.0-46.0) % RDW (11.5-15.5) % Plt Count (150-450) k/uL Retic Count 4.4 H (0.5-2.0) % APTT (22.0-30.0) sec Potassium (3.5-5.1) mmol/L BUN (7-17) mg/dL Glucose (74-99) mg/dL POC Glucose (mg/dL) (75-99) mg/dL Calcium (8.4-10.2) mg/dL Iron 11 L (50-170) ug/dL % Saturation 4.66 L (12.00-45.00) Total Protein (PEP) 4.2 L (6.2-8.2) g/dL 03/11/19 03/11/19 03/11/19 Range/Units 12:23 17:07 20:50 RBC (3.80-5.40) m/uL Hgb (11.4-16.0) gm/dL Hct (34.0-46.0) % RDW (11.5-15.5) % Plt Count (150-450) k/uL Retic Count (0.5-2.0) % APTT (22.0-30.0) sec Potassium (3.5-5.1) mmol/L BUN (7-17) mg/dL Glucose (74-99) mg/dL POC Glucose (mg/dL) 234 H 163 H 199 H (75-99) mg/dL Calcium (8.4-10.2) mg/dL Iron (50-170) ug/dL % Saturation (12.00-45.00) Total Protein (PEP) (6.2-8.2) g/dL 03/12/19 Range/Units 07:15 RBC (3.80-5.40) m/uL Hgb (11.4-16.0) gm/dL Hct (34.0-46.0) % RDW (11.5-15.5) % Plt Count (150-450) k/uL Retic Count (0.5-2.0) % APTT (22.0-30.0) sec Potassium (3.5-5.1) mmol/L BUN (7-17) mg/dL Glucose (74-99) mg/dL POC Glucose (mg/dL) 118 H (75-99) mg/dL Calcium (8.4-10.2) mg/dL Iron (50-170) ug/dL % Saturation (12.00-45.00) Total Protein (PEP) (6.2-8.2) g/dL Microbiology - Last 24 Hours (Table) 03/05/19 20:50 Blood Culture - Final Blood No Growth after 144 hours 03/06/19 16:30 Gram Stain - Final Other - Other Wound Culture - Final Stenotrophomonas maltophilia Staphylococcus epidermidis Enterococcus faecium VRE 03/06/19 16:30 Anaerobic Culture - Final Other - Other Assessment and Plan Assessment: Abdominal wound infection, status post hernia repair and mesh removal Chronic paroxysmal atrial fibrillation Chronic anemia diabetes mellitus bruise around the left midline. Mostly secondary to surgery and procedure Hyperlipidemia Hypertension History of coronary artery disease Memory impairment Hypothyroidism Osteoarthritis with degenerative joint disease including bilateral shoulder pain and chronic leg pain with pinched nerve Urine incontinence Plan: this is a pleasant 74 years old female who presents with wound infection. Continue with antibiotics as per ID team. Follow-up recommendation by surgical team. Continue with IV fluids. Pain management. Call hematology consult Labs and medication were reviewed.. Continue same treatment. Continue with symptomatic treatment. Resume home medication. Monitor lytes and vitals. DVT and GI prophylaxis. Further recommendations of the clinical course of the patient DVT prophylaxis: Subcutaneous heparin GI Prophylaxis: Protonix PT/OT: Pending Prognosis is guarded
[2019-03-12] MEDS: ERTAPENEM 1 GM in SODIUM CHLORIDE 0.9% 50 ML IVPB SCH ×2 (08:32→12:59)
--- NOTE | 2019-03-12 11:09 | P.PN ---
Subjective Progress Note Date: 03/12/19 Principal diagnosis: Iron deficient anemia In f/u today pt has c/o nausea and vomiting x 1, denies fever, cough, abd wound vac is not unusually painful, no bleeding or new bruising to report Objective - Vital Signs Vital signs: Vital Signs Temp 98.3 F 03/12/19 05:00 Pulse 74 03/12/19 05:00 Resp 20 03/12/19 05:00 BP 107/52 03/12/19 05:00 Pulse Ox 97 03/12/19 05:00 Intake & Output 03/11/19 03/12/19 03/12/19 18:59 06:59 18:59 Intake Total 600 240 Output Total 600 3800 250 Balance -600 -3200 -10 Intake: Oral 600 240 Output: Drainage 250 Right Abdomen 250 Urine 600 3800 Uretheral (Almaguer) 1900 Other: Voiding Method Indwelling Catheter Indwelling Catheter Indwelling Catheter # Voids 0 # Bowel Movements 0 - Constitutional General appearance: Present: cooperative, no acute distress, obese - EENT Eyes: Present: anicteric sclerae, EOMI - Respiratory Details: respirations even and unlabored - Cardiovascular Details: skin warm and dry - Gastrointestinal Gastrointestinal Comment(s): wound vac in place, no drainage, bleeding, foul odors General gastrointestinal: Present: soft - Integumentary Integumentary Comment(s): Large hematoma on LUE - Neurologic Neurologic: Present: CNII-XII intact - Musculoskeletal Musculoskeletal: Present: generalized weakness - Psychiatric Psychiatric: Present: A&O x's 3, appropriate affect, intact judgment & insight - Labs CBC & Chem 7: 03/11/19 07:35 03/12/19 07:18 Labs: Abnormal Lab Results - Last 24 Hours (Table) 03/11/19 03/11/19 03/11/19 Range/Units 07:35 07:35 12:23 Potassium (3.5-5.1) mmol/L BUN (7-17) mg/dL Glucose (74-99) mg/dL POC Glucose (mg/dL) 234 H (75-99) mg/dL Calcium (8.4-10.2) mg/dL Iron 11 L (50-170) ug/dL % Saturation 4.66 L (12.00-45.00) Total Protein (PEP) 4.2 L (6.2-8.2) g/dL 03/11/19 03/11/19 03/12/19 Range/Units 17:07 20:50 07:15 Potassium (3.5-5.1) mmol/L BUN (7-17) mg/dL Glucose (74-99) mg/dL POC Glucose (mg/dL) 163 H 199 H 118 H (75-99) mg/dL Calcium (8.4-10.2) mg/dL Iron (50-170) ug/dL % Saturation (12.00-45.00) Total Protein (PEP) (6.2-8.2) g/dL 03/12/19 Range/Units 07:18 Potassium 3.4 L (3.5-5.1) mmol/L BUN <2 L (7-17) mg/dL Glucose 107 H (74-99) mg/dL POC Glucose (mg/dL) (75-99) mg/dL Calcium 8.1 L (8.4-10.2) mg/dL Iron (50-170) ug/dL % Saturation (12.00-45.00) Total Protein (PEP) (6.2-8.2) g/dL Microbiology - Last 24 Hours (Table) 03/05/19 20:50 Blood Culture - Final Blood No Growth after 144 hours 03/06/19 16:30 Gram Stain - Final Other - Other Wound Culture - Final Stenotrophomonas maltophilia Staphylococcus epidermidis Enterococcus faecium VRE 03/06/19 16:30 Anaerobic Culture - Final Other - Other Assessment and Plan (1) Acute on chronic anemia Current Visit: Yes Status: Chronic Code(s): D64.9 - ANEMIA, UNSPECIFIED SNOMED Code(s): 357027727 (2) Acute blood loss anemia Current Visit: Yes Status: Acute Priority: Medium Code(s): D62 - ACUTE PO STHEMORRHAGIC ANEMIA SNOMED Code(s): 384026578 Plan: Recent procedures, persistent inflammation, acute and chronic infection are contributing to anemia and exacerbation. Labs resulted do show iron deficiency. Due to treatment of infection oral iron ordered vs parenteral iron at this time. No transfusion needed at this time. Some work up still pending but, paraproteinemia less likely. Reviewed possible SE of oral iron, pt will see how she tolerates. Outpt f/u 1-2 months to re-evaluate anemia and treatment of the same Dr. Attests: I have performed H&P and developed impression and plan of care of patient, discussed with dictator. I agree with dictated note, documented as a scribe.
[2019-03-12 11:36] LABS: Glucose,Whole Blood 178 mg/dL (75-99)
[2019-03-12] MEDS: FERROUS SULFATE 325 MG TAB PO SCH ×2 (11:41→16:47)
[2019-03-12 12:01] VITALS: BMI 32.4
[2019-03-12 12:23] LABS: Free Kappa Lt Chain Qnt, Serum 1.24 mg/dL (0.33-1.94)
[2019-03-12] MEDS: DAPTOmycin 500 MG in SODIUM CHLORIDE 0.9% 50 ML IVPB SCH (13:02)
[2019-03-12] MEDS ORDERED: POTASSIUM CHLORIDE ER 20 MEQ TAB.ER PO STA (14:29)
--- NOTE | 2019-03-12 14:29 | P.PN ---
Subjective Progress Note Date: 03/12/19 CHIEF COMPLAINT: Abdominal pain, nausea HISTORY OF PRESENT ILLNESS: Patient is status post removal of infected mesh from previous hernia repair. Patient examined this morning at the bedside. She denies abdominal pain. She reports an episode of emesis this morning. Since then, she has tolerated diet without nausea or vomiting. Wound vac intact. PHYSICAL EXAM: VITAL SIGNS: Reviewed. GENERAL: Well-developed in no acute distress. HEENT: No sclera icterus. Extraocular movements grossly intact. Moist buccal mucosa. Head is atraumatic, normocephalic. ABDOMEN: Soft. Nondistended. Wound vac to abdomen. NEUROLOGIC: Alert and oriented. Cranial nerves II through XII grossly intact. ASSESSMENT: 1. History of recent incisional hernia repair, complicated by rectal sheath hemorrhage, December 2018 2. intra-abdominal abscess, status post removal of infected mesh, cultures positive for enterococcus faecium VRE and stenotrophomonas 3. Acute blood loss anemia, and unexpected but potential complication of rocha rgery PLAN: -Continue diet as tolerated -Continue antibiotics. Infectious disease on consult -Continue wound VAC -Continue to monitor hemoglobin -Incentive spirometer -Increase activity as tolerated. Patient encouraged to be out of bed and ambulating in the hallway today -Patient to receive midline IV catheter today for outpatient IV antibiotics -Patient will be discharged tomorrow to subacute rehab Nurse practitioner note has been reviewed by physician. Signing provider agrees with the documented findings, assessment, and plan of care. Objective - Vital Signs Vital signs: Vital Signs Temp 98.0 F 03/12/19 14:14 Pulse 70 03/12/19 14:14 Resp 17 03/12/19 14:14 BP 134/62 03/12/19 14:14 Pulse Ox 99 03/12/19 14:14 Intake & Output 03/11/19 03/12/19 03/12/19 18:59 06:59 18:59 Intake Total 600 240 Output Total 600 3800 950 Balance -600 -3200 -710 Weight 83.007 kg Intake: Oral 600 240 Output: Drainage 250 Right Abdomen 250 Urine 600 3800 700 Uretheral ([place]) 1900 Other: Voiding Method Indwelling Catheter Indwelling Catheter Indwelling Catheter # Voids 0 # Bowel Movements 0 - Labs CBC & Chem 7: 03/11/19 07:35 03/12/19 07:18 Labs: Abnormal Lab Results - Last 24 Hours (Table) 03/10/19 03/11/19 03/11/19 Range/Units 08:03 07:35 07:35 Haptoglobin 308.0 H (31.2-198.0) mg/dL Potassium (3.5-5.1) mmol/L BUN (7-17) mg/dL Glucose (74-99) mg/dL POC Glucose (mg/dL) (75-99) mg/dL Calcium (8.4-10.2) mg/dL Iron 11 L (50-170) ug/dL % Saturation 4.66 L (12.00-45.00) Total Protein (PEP) 4.2 L (6.2-8.2) g/dL RBC Folate 1,517 H (280 - 791) ng/mL 03/11/19 03/11/19 03/12/19 Range/Units 17:07 20:50 07:15 Haptoglobin (31.2-198.0) mg/dL Potassium (3.5-5.1) mmol/L BUN (7-17) mg/dL Glucose (74-99) mg/dL POC Glucose (mg/dL) 163 H 199 H 118 H (75-99) mg/dL Calcium (8.4-10.2) mg/dL Iron (50-170) ug/dL % Saturation (12.00-45.00) Total Protein (PEP) (6.2-8.2) g/dL RBC Folate (280 - 791) ng/mL 03/12/19 03/12/19 Range/Units 07:18 11:22 Haptoglobin (31.2-198.0) mg/dL Potassium 3.4 L (3.5-5.1) mmol/L BUN <2 L (7-17) mg/dL Glucose 107 H (74-99) mg/dL POC Glucose (mg/dL) 178 H (75-99) mg/dL Calcium 8.1 L (8.4-10.2) mg/dL Iron (50-170) ug/dL % Saturation (12.00-45.00) Total Protein (PEP) (6.2-8.2) g/dL RBC Folate (280 - 791) ng/mL Microbiology - Last 24 Hours (Table) 03/05/19 20:50 Blood Culture - Final Blood No Growth after 144 hours 03/06/19 16:30 Gram Stain - Final Other - Other Wound Culture - Final Stenotrophomonas maltophilia Staphylococcus epidermidis Enterococcus faecium VRE 03/06/19 16:30 Anaerobic Culture - Final Other - Other
[2019-03-12] MEDS: SODIUM CHLORIDE 0.9% 1,000 ML IV SCH (14:40)
[2019-03-12 15:00] LABS: Albumin 2.06 g/dL (3.80-4.90); Gamma Globulin 0.33 g/dL (0.70-1.50)
--- NOTE | 2019-03-12 15:07 | PN ---
PROGRESS NOTE DATE OF SERVICE: 03/12/2019 REASON FOR FOLLOWUP: Infected abdominal mesh. INTERVAL HISTORY: The patient is currently afebrile. The patient has been breathing comfortably. Denies having any chest pain. No cough, no nausea, no vomiting. No abdominal pain, no diarrhea. PHYSICAL EXAMINATION: Blood pressure 107/52 with a pulse of 84, temperature 98.1, she is 97% on room air. General description is a elderly female, lying in bed in no distress. RESPIRATORY SYSTEM: Unlabored breathing, clear to auscultation anteriorly. HEART: S1, S2. Regular rate and rhythm. ABDOMEN: Soft, no tenderness. EXTREMITIES: No edema of the feet. LABS: BUN of 2, creatinine 0.55. DIAGNOSTIC IMPRESSION AND PLAN: Patient with infected abdominal mesh, status post wound culture did show multiple bacteria including ESBL Escherichia coli and Stenotrophomonas and VRE. Patient is currently covered with Invanz, vancomycin, oral Bactrim DS to continue for 2 weeks with close outpatient followup. Local care to continue with the wound VAC. [facility] next week. MMODL / IJN: [id number] /
[2019-03-12 17:19] LABS: Glucose,Whole Blood 165 mg/dL (75-99)
[2019-03-12] MEDS: DULoxetine HCL 60 MG CAPSULE.DR PO SCH (20:36)
[2019-03-12] MEDS: ATORVASTATIN 40 MG TAB PO SCH (20:36)
[2019-03-12] MEDS: LATANOPROST 0.005% OPHTH DROPS 2.5 ML BTL BOTH EYES SCH (20:40)
[2019-03-12 20:49] LABS: Glucose,Whole Blood 113 mg/dL (75-99)
[2019-03-12 21:53] VITALS: RESP 20
[2019-03-12] MEDS: HYDROmorphone 0.5 MG/0.5 ML SYRINGE IVP PRN (23:26)
[2019-03-13] MEDS: HYDROmorphone 0.5 MG/0.5 ML SYRINGE IVP PRN (03:33)
[2019-03-13] MEDS: SODIUM CHLORIDE 0.9% 1,000 ML IV SCH ×2 (04:30→10:15)
[2019-03-13 04:55] VITALS: BP 94/57; PULSE 92; TEMP 98.5
[2019-03-13] MEDS: LEVOTHYROXINE 88 MCG TAB PO SCH (05:46)
[2019-03-13 07:31] LABS: Glucose,Whole Blood 125 mg/dL (75-99)
[2019-03-13] MEDS: oxyCODONE ER 20 MG TAB.ER.12H PO SCH (07:54)
[2019-03-13] MEDS: PANTOPRAZOLE 40 MG TABLET PO SCH (07:58)
[2019-03-13] MEDS: METOPROLOL TARTRATE 50 MG TAB PO SCH (07:59)
[2019-03-13] MEDS: POTASSIUM CHLORIDE ER 20 MEQ TAB.ER PO SCH (07:59)
[2019-03-13] MEDS: FUROSEMIDE 40 MG TAB PO SCH (07:59)
[2019-03-13] MEDS: SULFAMETHOX-TMP 800-160MG 1 EACH TAB PO SCH (08:00)
[2019-03-13] MEDS ORDERED: LOSARTAN 50 MG TAB PO SCH (08:00)
[2019-03-13] MEDS: FERROUS SULFATE 325 MG TAB PO SCH (08:00)
[2019-03-13] MEDS: HEPARIN SODIUM,PORCINE 5,000 UNIT/ML 1 ML VIAL SQ SCH (08:02)
[2019-03-13] MEDS: ERTAPENEM 1 GM in SODIUM CHLORIDE 0.9% 50 ML IVPB SCH (08:03)
[2019-03-13] MEDS: INSULIN ASPART (NovoLOG) 100 UNIT/ML VIAL SQ SCH ×2 (08:06→13:17)
[2019-03-13] MEDS: AMIODARONE 100 MG TAB PO SCH (09:40)
[2019-03-13 09:53] LABS: Anisocytosis Slight; Basophils # (A) 0.1 k/uL (0-0.2); Basophils % (A) 1 %; Eosinophils # (A) 0.6 k/uL (0-0.7); Eosinophils % (A) 5 %; HCT 26.3 % (34.0-46.0); HGB 8.2 gm/dL (11.4-16.0); Hypochromasia Moderate; Lymphocytes # (A) 1.6 k/uL (1.0-4.8); Lymphocytes % (A) 14 %; MCH 26.2 pg (25.0-35.0); MCHC 31.3 g/dL (31.0-37.0); MCV 83.5 fL (80.0-100.0); Mean Platelet Volume 6.7; Monocytes # (A) 0.6 k/uL (0-1.0); Monocytes % (A) 5 %; Neutrophils # (A) 8.5 k/uL (1.3-7.7); Neutrophils % (A) 73 %; Platelet Count 584 k/uL (150-450); Poikilocytosis Moderate; RBC 3.15 m/uL (3.80-5.40); WBC 11.6 k/uL (3.8-10.6)
[2019-03-13 10:23] LABS: African American GFR (CKD) >90 (>60 ml/min/1.73 sqM); Anion Gap 8 mmol/L; Blood Urea Nitrogen 3 mg/dL (7-17); Calcium 8.5 mg/dL (8.4-10.2); Carbon Dioxide 24 mmol/L (22-30); Chloride 106 mmol/L (98-107); Glucose 172 mg/dL (74-99); Potassium 3.7 mmol/L (3.5-5.1); Sodium 138 mmol/L (137-145)
--- NOTE | 2019-03-13 11:44 | P.DS ---
Providers Date of admission: 03/05/19 18:25 Expected date of discharge: 03/13/19 Attending physician: Christopher Montoya Consults: 03/05/19 19:30 Consult Physician Stat Consulting Provider: Comfort Costa Consult Reason/Comments: Postop infection Do you want consulting provider notified?: Yes 03/06/19 08:49 Consult Physician Routine Consulting Provider: Parveen Dietz Consult Reason/Comments: medical management Do you want consulting provider notified?: Yes 03/10/19 19:38 Consult Physician Routine Consulting Provider: Andres Rascon Consult Reason/Comments: hematoma at midline site Do you want consulting provider notified?: Yes 03/11/19 08:25 Consult Physician Urgent Consulting Provider: Andres Rascon Consult Reason/Comments: left arm bruise , hematoma at abd wound Do you want consulting provider notified?: Yes Primary care physician: [facility] Course: 73-year-old female known surgical services from recent repair of incisional hernia performed on 01/18/[address] Montoya. Patient's course was completed by rectal sheath hemorrhage. Patient was recently hospitalized for abdominal pain and nausea. The patient was found to have elevated white count during that hospitalization and was placed on IV antibiotics. She was discharged to [facility] in stable condition. Patient was evaluated by Dr. Montoya outpatient at his office. She reports MASTER drain output has turned a brownish color with sediment over the past couple days. Dr. Montoya referred the patient to the emergency room for further evaluation. Patient underwent removal of infected abdominal mesh on 03/06/2019. cultures positive for enterococcus faecium VRE and stenotrophomonas. She has been followed by infectious disease during hospitalization. Wound VAC was placed to abdominal wound. She has been stable postoperatively. Pain controlled with oral medications. Vital signs are stable. She is stable for discharge to subacute rehab today on IV antibiotics per infectious disease recommendations. She is to follow-up with Dr. Montoya next week. Please see EMR for further hospital course details. Discharge Diagnosis: 1. History of recent incisional hernia repair, complicated by rectal sheath hemorrhage, December 2018 2. intra-abdominal abscess, status post removal of infected mesh, cultures positive for enterococcus faecium VRE and stenotrophomonas 3. Acute blood loss anemia, an unexpected but potential complication of surgery Nurse practitioner note has been reviewed by physician. Signing provider agrees with the documented findings, assessment, and plan of care. Patient Condition at Discharge: Good Plan - Discharge Summary Discharge Rx Participant: No New Discharge Prescriptions: New DAPTOmycin [Cubicin] 500 mg IV DAILY #14 bag Sulfamethox-Tmp 800-160Mg [Bactrim DS 800-160 mg] 1 tab PO Q12HR #28 tab Ertapenem [INVanz] 1 gm IVPB Q24H #14 bag Discontinued Atorvastatin [Lipitor] 40 mg PO HS@2100 Piperacillin-Tazobactam [Zosyn] 3.375 gm IVPB Q8H No Action Ergocalciferol (Vitamin D2) [Vitamin D2] 50,000 unit PO COHEN DULoxetine HCL [Cymbalta] 60 mg PO HS@2100 Furosemide [Lasix] 40 mg PO BID@0800,1700 Latanoprost/Pf [Latanoprost 0.005% Eye Drop] 1 drop BOTH EYES HS@2100 Amiodarone [Cordarone] 100 mg PO DAILY@0800 amLODIPine [Norvasc] 10 mg PO DAILY@0800 Potassium Chloride ER [K-Dur 20] 20 meq PO DIRECTED Metoprolol Tartrate [Lopressor] 50 mg PO BID@0800,1700 Losartan Potassium 100 mg PO DAILY@0800 Cilostazol [Pletal] 100 mg PO DAILY@0800 metFORMIN HCL [Glucophage] 500 mg PO BID@0800,1700 Loperamide [Imodium] 2 mg PO BID@0800,1700 Magnesium Hydroxide [Milk of Magnesia] 2,400 mg PO DAILY PRN PRN Reason: Constipation L.acidoph,Paracasei, B.lactis [Probiotic] 1 cap PO DAILY@1700 Na Phos,M-B/Na Phos,Di-Ba [Fleet Adult] 133 ml RECTAL DAILY PRN PRN Reason: Constipation Potassium Chloride ER [K-Dur 20] 40 meq PO ONCE Ensure Clear 1 can PO TID@0800,1200,1700 predniSONE 10 mg PO DAILY@0800 Levothyroxine Sodium [Synthroid] 88 mcg PO DAILY@0600 oxyCODONE ER [OxyCONTIN] 20 mg PO BID@0800,2100 Ondansetron HCl [Zofran] 8 mg PO DAILY PRN PRN Reason: Nausea Discharge Medication List DULoxetine HCL [Cymbalta] 60 mg PO HS@209912/14/16 [History] Ergocalciferol (Vitamin D2) [Vitamin D2] 50,000 unit PO COHEN 12/14/16 [History] Amiodarone [Cordarone] 100 mg PO DAILY@0800 03/02/18 [History] Furosemide [Lasix] 40 mg PO BID@0800,1700 03/02/18 [History] Latanoprost/Pf [Latanoprost 0.005% Eye Drop] 1 drop BOTH EYES HS@209903/02/18 [History] Cilostazol [Pletal] 100 mg PO DAILY@0811/15/18 [History] Losartan Potassium 100 mg PO DAILY@0811/15/18 [History] Metoprolol Tartrate [Lopressor] 50 mg PO BID@0800,1700 11/15/18 [History] Potassium Chloride ER [K-Dur 20] 20 meq PO DIRECTED 11/15/18 [History] amLODIPine [Norvasc] 10 mg PO DAILY@0800 11/15/18 [History] metFORMIN HCL [Glucophage] 500 mg PO BID@0800,1700 11/15/18 [History] Loperamide [Imodium] 2 mg PO BID@0800,1700 02/19/19 [History] Ensure Clear 1 can PO TID@0800,1200,1700 03/05/19 [History] L.acidoph,Paracasei, B.lactis [Probiotic] 1 cap PO DAILY@1700 03/05/19 [History] Levothyroxine Sodium [Synthroid] 88 mcg PO DAILY@0600 03/05/19 [History] Magnesium Hydroxide [Milk of Magnesia] 2,400 mg PO DAILY PRN 03/05/19 [History] Na Phos,M-B/Na Phos,Di-Ba [Fleet Adult] 133 ml RECTAL DAILY PRN 03/05/19 [History] Ondansetron HCl [Zofran] 8 mg PO DAILY PRN 03/05/19 [History] Potassium Chloride ER [K-Dur 20] 40 meq PO ONCE 03/05/19 [History] oxyCODONE ER [OxyCONTIN] 20 mg PO BID@0800,2100 03/05/19 [History] predniSONE 10 mg PO DAILY@0800 03/05/19 [History] DAPTOmycin [Cubicin] 500 mg IV DAILY #14 bag 03/11/19 [Rx] Ertapenem [INVanz] 1 gm IVPB Q24H #14 bag 03/11/19 [Rx] Sulfamethox-Tmp 800-160Mg [Bactrim DS 800-160 mg] 1 tab PO Q12HR #28 tab 03/11/19 [Rx] Follow up Appointment(s)/Referral(s): Diaz Alcala DO [Primary Care Provider] - 1-2 days Christopher Montoya MD [STAFF PHYSICIAN] - 1 Week Patient Instructions/Handouts: Surgical Site Infections (DC) Activity/Diet/Wound Care/Special Instructions: wound vac to abd wound , 120mmhg , continuous pressure , black foam change monday , monday, Monday follow up with Dr costa in wound care , office said they will call patient with time and date of appt.
[2019-03-13 12:33] LABS: Glucose,Whole Blood 175 mg/dL (75-99)
--- NOTE | 2019-03-13 12:42 | PN ---
PROGRESS NOTE DATE OF SERVICE: 03/13/2019 REASON FOR FOLLOWUP: Infected abdominal mesh. INTERVAL HISTORY: The patient is currently afebrile. The patient is breathing comfortably. The patient denies having any chest pain. No cough. No nausea, no vomiting, no abdominal pain or diarrhea. PHYSICAL EXAMINATION: Blood pressure is 94/57 with a pulse of 92, temperature 98.5, she is 97% on room air. General description is an elderly female, lying in bed in no distress. RESPIRATORY SYSTEM: Unlabored breathing, clear to auscultation anteriorly. HEART: S1, S2. Regular rate and rhythm. ABDOMEN: Soft, no tenderness. EXTREMITIES: No edema of the feet. LABS: White count slightly elevated at 11.6 with a BUN of 3, creatinine 0.62. DIAGNOSTIC IMPRESSION AND PLAN: Patient with infected abdominal mesh with multiple pathogens including VRE, ESBL E coli and Stenotrophomonas. Patient is currently covered with Bactrim DS, Invanz and daptomycin which will continue for 2 weeks. Will monitor CBC, BMP and the CRP. Local care to continue with the wound VAC. Follow up in [facility] Center in 1 week. MMODL / IJN: [id number] /
[2019-03-13] MEDS: DAPTOmycin 500 MG in SODIUM CHLORIDE 0.9% 50 ML IVPB SCH (13:17)
--- NOTE | 2019-03-13 21:23 | P.PN ---
Progress Note - Text Progress Note Date: 03/13/19 - Chief Complaint Abdominal discomfort interval history: This is a pleasant 73-year-old patient of Dr. Alcala. Chronic stable medical conditions include atrial fibrillation, coronary artery disease, diabetes, hyperlipidemia, hypertension, Randy arthritis, hypothyroid, peripheral arterial disease. Patient and December 2017 had a "coronary bypass for ischemic bowel resulting in the ostomy and a wound VAC. Patient subsequently had intra- abdominal abscess and required protracted course of antibiotics. Back in March 2018 had an abscess and patient did have a MASTER drain in place for the same. And December of this year patient had the incisional hernia with mesh placed. By Dr. Montoya. Patient does have significant bleeding from a MASTER drain. Continues to have a MASTER drain in place. Patient was recently in the hospital from 02/20/2019 through February 27. Patient is still putting a significant amount from a MASTER drain A nausea vomiting. Had elevated white count. Patient was seen by Dr. Lancaster from [place]. Was put on antibiotics and discharged on the same. Patient presented to Dr. Montoya's office. Having significant drainage through the MASTER drain. The drainage had become more purulent. Also having some diarrhea off and on for few days. No fever no chills. Having nausea. Appetite has been okay. Has been having sharp abdominal pain and discomfort. Dr. Montoya decided to take the abdominal mesh out. Also has been some drainage from the lower part of the abdominal incision which is opened up about 2 cm Following day, the patient had a superficial venous bleed from a abdominal incision wound.significant blood loss. Patient received 1 unit of blood. Patient is continued to receive antibiotics. Doing better. Today-. Laying in bed. Did tolerate her diet. Has been in bowel movements. Minimal abdominal pain. Has a wound VAC in place. Does feel tired. Review of systems: Was done for constitutional, cardiovascular, GI, pulmonary. relevant finding as above Current medications reviewed at today's electronic records Physical examination: VITAL SIGNS: 98.5, 92, 20, 94/57, 97% on room air GENERAL: laying in bed, awake EYES: Pupils equal. Conjunctiva pale HEENT: External appearance of nose and ears normal, oral cavity grossly normal. NECK: JVD not raised; masses not palpable. HEART: First and second heart sounds are normal; some edema. LUNGS: Respiratory rate normal; decreased breath sounds. ABDOMEN: Soft, mild tender, liver spleen not palpable, dressing present. Wound VAC in place PSYCH: Alert and oriented x3; mood and affect normal. INVESTIGATIONS, reviewed in the clinical context: White count 11.6 hemoglobin 8.2 platelets 584 progression 3.7 creatinine 0.62 Previous testing White count 15 hemoglobin 10 platelets 527 potassium 3.7 creatinine 0.80 lactic acid 3.2 Abdominal wound culture growing-group D enterococcus,stenotrophomonas maltophilia Assessment: -Acute purulent drainage through the abdominal MASTER drain which has been present for quite some time. Suspect intra-abdominal infection. Infected mesh was removed. Wound cultures growing group G enterococcus,'s stenotrophomonas maltophilia. Now wound VAC in place -Acute blood loss anemia, symptomatic, receive 2 units of blood -Severe hypokalemia, potassium is replaced -Coronary artery disease per prior history of bypass -Paroxysmal atrial fibrillation -Peripheral artery disease -Hypothyroid -Diabetes mellitus type 2 on oral hypoglycemic -Lumbar osteoarthritis -Hyperlipidemia -Essential hypertension -History of bowel perforation recurrent intra-abdominal abscess -Obesity BMI 32.8 Plan: Patient being discharged to [facility] today. Will be going on IV daptomycin and Bactrim and Invanz bradycardia. Wound VAC to continue. Care was discussed with the patient. Questions were answered. Thank you Dr. Montoya
== END 2019-03-13 15:30 | DRG 907 ==
LOC: EC 17:16 → 4MS4W 18:25
PROVIDERS: ADMIT Surgery; ATTEND Surgery
PROC: 30233N1 Transfusion of Nonautologous Red Blood Cells into Peripheral Vein, Percutaneous Approach (ICD-10-PCS; 2019-03-06)
PROC: 0WPF0JZ Removal of Synthetic Substitute from Abdominal Wall, Open Approach (ICD-10-PCS; principal; 2019-03-06 11:25)
DX: T85.79XA Infection and inflammatory reaction due to other internal prosthetic devices, implants and grafts, initial encounter (principal); K65.1 Peritoneal abscess; D62 Acute posthemorrhagic anemia; T81.30XA Disruption of wound, unspecified, initial encounter; T81.41XA Infection following a procedure, superficial incisional surgical site, initial encounter; B95.2 Enterococcus as the cause of diseases classified elsewhere; E03.9 Hypothyroidism, unspecified; E11.41 Type 2 diabetes mellitus with diabetic mononeuropathy; E11.51 Type 2 diabetes mellitus with diabetic peripheral angiopathy without gangrene; E78.5 Hyperlipidemia, unspecified; E87.6 Hypokalemia; F17.210 Nicotine dependence, cigarettes, uncomplicated; F32.9 Major depressive disorder, single episode, unspecified; F41.9 Anxiety disorder, unspecified; G89.29 Other chronic pain; I10 Essential (primary) hypertension; I25.10 Atherosclerotic heart disease of native coronary artery without angina pectoris; I48.0 Paroxysmal atrial fibrillation; M19.90 Unspecified osteoarthritis, unspecified site; M47.816 Spondylosis without myelopathy or radiculopathy, lumbar region; R32 Unspecified urinary incontinence; S30.1XXA Contusion of abdominal wall, initial encounter; S40.022A Contusion of left upper arm, initial encounter; Y83.2 Surgical operation with anastomosis, bypass or graft as the cause of abnormal reaction of the patient, or of later complication, without mention of misadventure at the time of the procedure; Z79.02 Long term (current) use of antithrombotics/antiplatelets; Z79.84 Long term (current) use of oral hypoglycemic drugs; Z79.890 Hormone replacement therapy; Z79.899 Other long term (current) drug therapy; Z80.49 Family history of malignant neoplasm of other genital organs; Z82.49 Family history of ischemic heart disease and other diseases of the circulatory system; Z95.1 Presence of aortocoronary bypass graft; Z96.653 Presence of artificial knee joint, bilateral; Z88.5 Allergy status to narcotic agent
CPT/HCPCS: 36410; 36415; 76937; 80048; 80053; 81003; 82150; 82550; 82553; 82607; 82728; 82747; 83010; 83540; 83550; 83605; 83690; 83735; 83883; 83921; 84132; 84165; 84484; 85025; 85045; 85610; 85730; 86334; 86850; 86900; 86901; 86920; 87040; 87070; 87075; 87077; 87186; 87205; 93005; 96365; 96366; 96375; 99285

== ENCOUNTER 2019-03-29 10:05 | Emergency (ER) | payer MEDICARE ==
[2019-03-29] MEDS ORDERED: SODIUM CHLORIDE 0.9% 500 ML 500 ML IV ONE (10:26)
[2019-03-29 10:36] VITALS: TEMP 97.8
--- NOTE | 2019-03-29 10:36 | ED ---
General Adult HPI - General Stated complaint: CONFUSION Time Seen by Provider: 03/29/19 10:07 Source: RN notes reviewed - History of Present Illness Initial comments: 74-year-old female with a complicated past medical history including complications from a recent hernia repair requiring secondary healing presents to the emergency determine for confusion. Patient is currently living at [facility]. According to EMS staff attempted to wake patient this morning and patient seemed confused. They then called EMS. EMS reports the patient is alert and oriented 4 and is back to baseline. Patient states she just wasn't awake yet at the time. Patient states she did not sleep well last night as she had 2 machines that were beeping next to her. States that she is feeling her normal self at this time. Denies headache. Denies chest pain shortness of breath.Patient has no other complaints at this time including shortness of b reath, chest pain, abdominal pain, nausea or vomiting, headache, or visual changes. - Related Data Home Medications Medication Instructions Recorded Confirmed DULoxetine HCL [Cymbalta] 60 mg PO HS@209912/14/16 03/05/19 Ergocalciferol (Vitamin D2) 50,000 unit PO COHEN 12/14/16 03/05/19 [Vitamin D2] Amiodarone [Cordarone] 100 mg PO DAILY@0800 03/02/18 03/05/19 Furosemide [Lasix] 40 mg PO BID@0800,1700 03/02/18 03/05/19 Latanoprost/Pf [Latanoprost 0.005% 1 drop BOTH EYES HS@209903/02/18 03/05/19 Eye Drop] Cilostazol [Pletal] 100 mg PO DAILY@0800 11/15/18 03/05/19 Metoprolol Tartrate [Lopressor] 50 mg PO BID@0800,1700 11/15/18 03/05/19 metFORMIN HCL [Glucophage] 500 mg PO BID@0800,1700 11/15/18 03/05/19 Ensure Clear 1 can PO TID@0800,1200,1700 03/05/19 03/05/19 L.acidoph,Paracasei, B.lactis 1 cap PO DAILY@1700 03/05/19 03/05/19 [Probiotic] Levothyroxine Sodium [Synthroid] 88 mcg PO DAILY@0600 03/05/19 03/05/19 Magnesium Hydroxide [Milk of 2,400 mg PO DAILY PRN 03/05/19 03/05/19 Magnesia] Na Phos,M-B/Na Phos,Di-Ba [Fleet 133 ml RECTAL DAILY PRN 03/05/19 03/05/19 Adult] predniSONE 10 mg PO DAILY@0800 03/05/19 03/05/19 Previous Rx's Medication Instructions Recorded DAPTOmycin [Cubicin] 500 mg IV DAILY #14 bag 03/11/19 Ertapenem [INVanz] 1 gm IVPB Q24H #14 bag 03/11/19 Sulfamethox-Tmp 800-160Mg [Bactrim 1 tab PO Q12HR #28 tab 03/11/19 DS 800-160 mg] Atorvastatin [Lipitor] 40 mg PO HS@2100 tab 03/13/19 INSULIN ASPART (NovoLOG) [NovoLOG 0 unit SQ ACHS vial 03/13/19 (formulary)] Loperamide [Imodium] 2 mg PO BID@0800,1700 PRN #0 03/13/19 Losartan [Cozaar] 50 mg PO DAILY@0800 tab 03/13/19 Potassium Chloride ER [K-Dur 20] 20 meq PO DAILY #0 03/13/19 oxyCODONE ER [OxyCONTIN] 20 mg PO BID@0800,2100 #6 tab 03/13/19 Allergies Allergy/AdvReac Type Severity Reaction Status Date / Time morphine AdvReac Intermediate Itching Verified 03/05/19 19:59 Review of Systems ROS Statement: Those systems with pertinent positive or pertinent negative responses have been documented in the HPI. ROS Other: All systems not noted in ROS Statement are negative. Past Medical History Past Medical History: Atrial Fibrillation, Coronary Artery Disease (CAD), Diabetes Mellitus, Hyperlipidemia, Hypertension, Memory Impairment, Osteoarthritis (OA), Thyroid Disorder, Vascular Disorder Additional Past Medical History / Comment(s): 01/18/19 incisional hernia repair- open with mesh and has drain, paroxysmal Afib, NIDDM type II, PAD, decreased circulation to R lower extremity-pt states had several unsuccessful attempts at placing artificial artery, bowel surgery d/t blood clot to colon post opera tively, frequent diarrhea, urinary incontinence, chronic elevated WBC, chronic low back pain/pinched nerve, bilateral shoulder pain-DJD, "forgetful", hypothyroid, vertigo at times. History of Any Multi-Drug Resistant Organisms: ESBL, VRE Date of last positivie culture/infection: 03/06/19 VRE; 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 Source:: Abdomen-VRE; Body Fluid Aspirate-ESBL Past Surgical History: Appendectomy, Bowel Resection, Breast Surgery, Cholecystectomy, Coronary Bypass/CABG, Heart Catheterization, Hernia Repair, Joint Replacement, Orthopedic Surgery Additional Past Surgical History / Comment(s): 01/18/19 incisional hernia repair- open with mesh, 12/11/17 CABG 4 vessel, 12/20/17 colectomy/ileostomy with reversal, R leg attempted bypasses with artificial artery which pt states were unsuccessful, L breast benign tumor removed, bilateral total knee arthroplasties, R rotator cuff repair, low back epidural injections, piccs-since removed. Past Anesthesia/Blood Transfusion Reactions: No Reported Reaction Additional Past Anesthesia/Blood Transfusion Reaction / Comment(s): Pt has recently received blood and also years ago received blood without reaction. Past Psychological History: Anxiety, Depression Additional Psychological History / Comment(s): Pt lives with her spouse in [place] and they winter in [place]. She lately has been using a walker to ambulate d/t weakness, but normally uses a cane. She no longer drives d/t rotator cuff problems, her spouse drives. She is otherwise independent. Smoking Status: Former smoker Past Alcohol Use History: None Reported Additional Past Alcohol Use History / Comment(s): Pt started smoking in 1965 and quit in 2007. She was a ppd smoker. Past Drug Use History: None Reported - Past Family History Mother Family Medical History: Cancer Additional Family Medical History / Comment(s): Uterine cancer. Father Family Medical History: Congestive Heart Failure (CHF) General Exam General appearance: alert, in no apparent distress Head exam: Present: atraumatic, normocephalic, normal inspection Eye exam: Present: normal appearance, PERRL, EOMI. Absent: scleral icterus, conjunctival injection, periorbital swelling ENT exam: Present: normal exam, mucous membranes moist Neck exam: Present: normal inspection. Absent: tenderness, meningismus, lymphadenopathy Respiratory exam: Present: normal lung sounds bilaterally. Absent: respiratory distress, wheezes, rales, rhonchi, stridor Cardiovascular Exam: Present: regular rate, normal rhythm, normal heart sounds. Absent: systolic murmur, diastolic murmur, rubs, gallop, clicks GI/Abdominal exam: Present: soft, normal bowel sounds, other (Dressing noted over hernia surgery). Absent: distended, tenderness, guarding, rebound, rigid Neurological exam: Present: alert (She is pleasant, answering questions without difficulty), oriented X3 Psychiatric exam: Present: normal affect, normal mood Course Vital Signs 03/29/19 10:31 Temperature 97.8 F Pulse Rate 78 Respiratory 18 Rate Blood Pressure 142/90 O2 Sat by Pulse 96 Oximetry EKG Findings - EKG Comments: EKG Findings:: Sinus rhythm, ventricular rate 75, WI interval 146, QTc 509 Medical Decision Making - Medical Decision Making Carolyn is a 74-year-old female. Patient is alert and oriented 4. She has pleasant incarceration. Exam is unremarkable. I do not see any obvious signs of infection around abdominal wound. CBC shows a white blood cell count 12.7. This is likely reactive. Hemoglobin 9.3 which is chronic for patient. CMP is unremarkable. Urinalysis does not show any evidence of infection. Chest x-ray shows chronic changes without acute cardiopulmonary process.CT brain shows age- related atrophic and chronic small vessel ischemic change without acute intracranial process seen. Patient has remained alert and oriented 4 throughout her stay. She'll be discharged back tomorrow. She'll return here if she has any worsening symptoms. - Lab Data Result diagrams: 03/29/19 10:36 03/29/19 10:36 Lab Results 03/29/19 03/29/19 03/29/19 Range/Units 10:36 10:36 11:45 WBC 12.7 H (3.8-10.6) k/uL RBC 3.73 L (3.80-5.40) m/uL Hgb 9.3 L (11.4-16.0) gm/dL Hct 30.0 L (34.0-46.0) % MCV 80.3 (80.0-100.0) fL MCH 25.0 (25.0-35.0) pg MCHC 31.1 (31.0-37.0) g/dL RDW 16.3 H (11.5-15.5) % Plt Count 661 H (150-450) k/uL Neutrophils % 73 % Lymphocytes % 15 % Monocytes % 5 % Eosinophils % 6 % Basophils % 0 % Neutrophils # 9.2 H (1.3-7.7) k/uL Lymphocytes # 1.9 (1.0-4.8) k/uL Monocytes # 0.7 (0-1.0) k/uL Eosinophils # 0.8 H (0-0.7) k/uL Basophils # 0.0 (0-0.2) k/uL Hypochromasia Marked Poikilocytosis Slight Anisocytosis Slight Sodium 137 (137-145) mmol/L Potassium 3.6 (3.5-5.1) mmol/L Chloride 105 (98-107) mmol/L Carbon Dioxide 23 (22-30) mmol/L Anion Gap 9 mmol/L BUN 13 (7-17) mg/dL Creatinine 0.84 (0.52-1.04) mg/dL Est GFR (CKD-EPI)AfAm 80 (>60 ml/min/1.73 sqM) Est GFR (CKD-EPI)NonAf 70 (>60 ml/min/1.73 sqM) Glucose 105 H (74-99) mg/dL Calcium 9.4 (8.4-10.2) mg/dL Total Bilirubin 0.3 (0.2-1.3) mg/dL AST 24 (14-36) U/L ALT 28 (9-52) U/L Alkaline Phosphatase 163 H (38-126) U/L Total Protein 5.6 L (6.3-8.2) g/dL Albumin 3.0 L (3.5-5.0) g/dL Urine Color Yellow Urine Appearance Clear (Clear) Urine pH 5.5 (5.0-8.0) Ur Specific [place] 1.014 (1.001-1.035) Urine Protein Trace H (Negative) Urine Glucose (UA) Negative (Negative) Urine Ketones Negative (Negative) Urine Blood Negative (Negative) Urine Nitrite Negative (Negative) Urine Bilirubin Negative (Negative) Urine Urobilinogen <2.0 (<2.0) mg/dL Ur Leukocyte Esterase Negative (Negative) Disposition Clinical Impression: History of confusion Disposition: HOME SELF-CARE Condition: Good Instructions (If sedation given, give patient instructions): Altered Mental Status (ED) Additional Instructions: Please follow-up with primary care in 1-2 days. Patient denies any worsening symptoms she may return to the emergency department. Is patient prescribed a controlled substance at d/c from ED?: No Referrals: Diaz Alcala DO [Primary Care Provider] - 1-2 days Time of Disposition: 14:02
[2019-03-29 11:05] LABS: Calcium 9.4 mg/dL (8.4-10.2); Potassium 3.6 mmol/L (3.5-5.1); Total Bilirubin 0.3 mg/dL (0.2-1.3); Total Protein 5.6 g/dL (6.3-8.2)
[2019-03-29 11:13] LABS: Anisocytosis Slight; Basophils % (A) 0 %; Eosinophils # (A) 0.8 k/uL (0-0.7); Eosinophils % (A) 6 %; HGB 9.3 gm/dL (11.4-16.0); Hypochromasia Marked; Lymphocytes # (A) 1.9 k/uL (1.0-4.8); Lymphocytes % (A) 15 %; MCHC 31.1 g/dL (31.0-37.0); MCV 80.3 fL (80.0-100.0); Mean Platelet Volume 5.9; Monocytes # (A) 0.7 k/uL (0-1.0); Monocytes % (A) 5 %; Neutrophils # (A) 9.2 k/uL (1.3-7.7); Neutrophils % (A) 73 %; Platelet Count 661 k/uL (150-450); Poikilocytosis Slight; RBC 3.73 m/uL (3.80-5.40); RDW 16.3 % (11.5-15.5); WBC 12.7 k/uL (3.8-10.6)
--- NOTE | 2019-03-29 12:08 | XR ---
EXAMINATION TYPE: XR chest 2V DATE OF EXAM: 03/29/2019 COMPARISON: Chest x-ray November 15, 2018. HISTORY: Altered mental status and weakness. TECHNIQUE: Frontal and lateral views of the chest are obtained. FINDINGS: Overlying sternal wires and mediastinal clips are redemonstrated. Cardiac closure device rocha perior posterior part again seen. There is chronic parenchymal changes without suspicious new focal a ir space opacity, pleural effusion, or pneumothorax seen. The cardiac silhouette size remains within normal limits with atherosclerotic and ectatic aorta. The osseous structures remain demineralized. IMPRESSION: Chronic changes without new acute pulmonary process.
[2019-03-29 12:52] LABS: Appearance,Urine Clear (Clear); Bilirubin,Urine Negative (Negative); Blood,Urine Negative (Negative); Color,Urine Yellow; Glucose,Urine (UA) Negative (Negative); Ketones,Urine Negative (Negative); Leukocyte Esterase,Urine Negative (Negative); Nitrite,Urine Negative (Negative); PH, Urine 5.5 (5.0-8.0); Protein,Urine Trace (Negative); Specific Gravity,Urine 1.014 (1.001-1.035); Urobilinogen,Urine <2.0 mg/dL (<2.0)
--- NOTE | 2019-03-29 13:54 | CT ---
EXAMINATION TYPE: CT brain wo con DATE OF EXAM: 03/29/2019 COMPARISON: December 13, 2017 HISTORY: confusion Unenhanced CT of the brain was performed. The ventricles, basal cisterns and sulci overlying the cerebral convexities demonstrate mild enlargem ent. There is no evidence for intracranial hemorrhage or sulcal effacement. There is decreased attenuation about the periventricular white matter and deep white matter of both c erebral hemispheres, compatible with chronic small vessel ischemia. Differential diagnosis does inclu de demyelination. No mass effects are seen.No midline shift. Osseous calvarium is intact. If symptoms persist consider MRI. IMPRESSION: 1. Age related atrophic and chronic small vessel ischemic change without acute intracranial process s een at this time.
[2019-03-29 15:12] LABS: Glucose,Whole Blood 97 mg/dL (75-99)
[2019-03-29 15:19] VITALS: BP 116/72; PULSE 72; RESP 16
[2019-03-29] MEDS ORDERED: NALOXONE 0.4 MG/ML 1 ML VIAL IV PRN (15:35)
[2019-03-29] MEDS ORDERED: SODIUM CHLORIDE 0.9% 1,000 ML IV SCH (15:45)
== END 2019-03-29 16:20 | disposition home or self-care (01) ==
LOC: EC 10:05
DX: R41.0 Disorientation, unspecified (principal); G31.1 Senile degeneration of brain, not elsewhere classified; I25.10 Atherosclerotic heart disease of native coronary artery without angina pectoris; E78.5 Hyperlipidemia, unspecified; I10 Essential (primary) hypertension; E11.51 Type 2 diabetes mellitus with diabetic peripheral angiopathy without gangrene; E03.9 Hypothyroidism, unspecified; I48.0 Paroxysmal atrial fibrillation; F41.9 Anxiety disorder, unspecified; F32.9 Major depressive disorder, single episode, unspecified; M19.90 Unspecified osteoarthritis, unspecified site; Z79.899 Other long term (current) drug therapy; Z79.84 Long term (current) use of oral hypoglycemic drugs; Z79.890 Hormone replacement therapy; Z79.51 Long term (current) use of inhaled steroids; Z88.5 Allergy status to narcotic agent; Z87.891 Personal history of nicotine dependence; Z95.1 Presence of aortocoronary bypass graft; Z96.653 Presence of artificial knee joint, bilateral
CPT/HCPCS: 36415; 70450; 71046; 80053; 81003; 85025; 93005; 96360; 96361; 99285

== ENCOUNTER 2019-03-30 01:34 | Inpatient (IN) | payer MEDICARE ==
[2019-03-30 01:41] LABS: Glucose,Whole Blood 101 mg/dL (75-99)
[2019-03-30 02:12] LABS: Anisocytosis Slight; Basophils # (A) 0.1 k/uL (0-0.2); Basophils % (A) 1 %; Eosinophils # (A) 1.2 k/uL (0-0.7); Eosinophils % (A) 8 %; HCT 30.3 % (34.0-46.0); HGB 9.7 gm/dL (11.4-16.0); Hypochromasia Marked; Lymphocytes # (A) 2.1 k/uL (1.0-4.8); Lymphocytes % (A) 14 %; MCH 25.3 pg (25.0-35.0); MCHC 32.1 g/dL (31.0-37.0); MCV 78.7 fL (80.0-100.0); Mean Platelet Volume 5.7; Microcytosis Slight; Monocytes # (A) 0.9 k/uL (0-1.0); Monocytes % (A) 6 %; Neutrophils # (A) 10.8 k/uL (1.3-7.7); Neutrophils % (A) 71 %; Platelet Count 711 k/uL (150-450); Poikilocytosis Slight; RBC 3.84 m/uL (3.80-5.40); RDW 16.3 % (11.5-15.5); WBC 15.3 k/uL (3.8-10.6)
[2019-03-30 02:13] LABS: VBG PH 7.45 (7.31-7.41)
[2019-03-30 02:17] LABS: Appearance,Urine Clear (Clear); Bilirubin,Urine Negative (Negative); Blood,Urine Negative (Negative); Color,Urine Light Yellow; Glucose,Urine (UA) Negative (Negative); Ketones,Urine Negative (Negative); Leukocyte Esterase,Urine Negative (Negative); Nitrite,Urine Negative (Negative); Protein,Urine Negative (Negative); Specific Gravity,Urine 1.005 (1.001-1.035); Urobilinogen,Urine <2.0 mg/dL (<2.0)
[2019-03-30 02:26] LABS: ALT 30 U/L (9-52); AST 23 U/L (14-36); African American GFR (CKD) >90 (>60 ml/min/1.73 sqM); Albumin 3.2 g/dL (3.5-5.0); Alkaline Phosphatase 198 U/L (38-126); Anion Gap 10 mmol/L; Blood Urea Nitrogen 9 mg/dL (7-17); Calcium 9.5 mg/dL (8.4-10.2); Carbon Dioxide 21 mmol/L (22-30); Chloride 106 mmol/L (98-107); Glucose 87 mg/dL (74-99); Non-African American GFR(CKD) 87 (>60 ml/min/1.73 sqM); Potassium 3.8 mmol/L (3.5-5.1); Sodium 137 mmol/L (137-145); Total Bilirubin 0.4 mg/dL (0.2-1.3); Total Protein 5.9 g/dL (6.3-8.2)
--- NOTE | 2019-03-30 02:51 | XR ---
EXAMINATION TYPE: XR chest 1V portable DATE OF EXAM: 03/30/2019 COMPARISON: Yesterday HISTORY: Mental status changes TECHNIQUE: Single frontal view of the chest is obtained. FINDINGS: Heart size is normal. There is no heart failure. There are sternal wires. Costophrenic ang les are clear. Thoracic aorta is atheromatous. There is moderate arthritic change in the shoulder darlene nts. There is no pleural effusion. IMPRESSION: No active cardiopulmonary disease. Atheromatous aorta.
[2019-03-30] MEDS ORDERED: NALOXONE 0.4 MG/ML 1 ML VIAL IV PRN (02:53)
[2019-03-30] MEDS ORDERED: SODIUM CHLORIDE 0.9% 1,000 ML IV SCH (03:00)
--- NOTE | 2019-03-30 06:24 | ED ---
Altered Mental Status HPI - General Chief Complaint: Altered Mental Status Stated Complaint: Hallucinations Time Seen by Provider: 03/30/19 01:38 Source: patient Mode of arrival: ambulatory Limitations: no limitations - History of Present Illness Initial Comments: 's patient is a 74-year-old woman coming from the [facility] care facility to be evaluated for altered mental status. The patient reportedly has been having fluctuating level of consciousness and hallucinating. When I interview the patient, she is currently not complaining of any pain or difficulty with breathing. She did recognize she was in the hospital. She was not oriented to time. MD Complaint: altered mental status, confusion Onset/Timin -: days(s) Severity: moderate Consistency of Symptoms: waxing and waning Context: history of similar presentation Associated Symptoms: denies other symptoms - Related Data Home Medications Medication Instructions Recorded Confirmed DULoxetine HCL [Cymbalta] 60 mg PO HS@209912/14/16 03/30/19 Ergocalciferol (Vitamin D2) 50,000 unit PO COHEN 12/14/16 03/30/19 [Vitamin D2] Amiodarone [Cordarone] 100 mg PO DAILY@0800 03/02/18 03/30/19 Furosemide [Lasix] 40 mg PO BID@0800,1700 03/02/18 03/30/19 Latanoprost/Pf [Latanoprost 0.005% 1 drop BOTH EYES HS@209903/02/18 03/30/19 Eye Drop] Cilostazol [Pletal] 100 mg PO DAILY@0800 11/15/18 03/30/19 Metoprolol Tartrate [Lopressor] 50 mg PO BID@0800,1700 11/15/18 03/30/19 metFORMIN HCL [Glucophage] 500 mg PO BID@0800,1700 11/15/18 03/30/19 Ensure Clear 1 can PO BID@0800,1700 03/05/19 03/30/19 L.acidoph,Paracasei, B.lactis 1 cap PO BID@0800,1700 03/05/19 03/30/19 [Probiotic] Levothyroxine Sodium [Synthroid] 88 mcg PO DAILY@0600 03/05/19 03/30/19 Magnesium Hydroxide [Milk of 2,400 mg PO DAILY PRN 03/05/19 03/30/19 Magnesia] Na Phos,M-B/Na Phos,Di-Ba [Fleet 133 ml RECTAL DAILY PRN 03/05/19 03/30/19 Adult] predniSONE 10 mg PO DAILY@0800 03/05/19 03/30/19 DAPTOmycin [Cubicin] 500 mg IV DAILY@2130 03/30/19 03/30/19 Ferrous Sulfate [Feosol] 325 mg PO DAILY@1700 03/30/19 03/30/19 INSULIN ASPART (NovoLOG) [NovoLOG See Protocol SQ ACHS 03/30/19 03/30/19 (formulary)] Nystatin 100,000Unit/gm Cream 1 applic TOPICAL BID@0800,2100 03/30/19 03/30/19 [Mycostatin Cream] Ondansetron HCl [Zofran] 8 mg PO Q12H PRN 03/30/19 03/30/19 Previous Rx's Medication Instructions Recorded Ertapenem [INVanz] 1 gm IVPB Q24H #14 bag 03/11/19 Atorvastatin [Lipitor] 40 mg PO HS@2100 tab 03/13/19 Loperamide [Imodium] 2 mg PO BID@0800,1700 PRN #0 03/13/19 Losartan [Cozaar] 50 mg PO DAILY@0800 tab 03/13/19 Potassium Chloride ER [K-Dur 20] 20 meq PO DAILY #0 03/13/19 oxyCODONE ER [OxyCONTIN] 20 mg PO BID@0800,2100 #6 tab 03/13/19 Allergies Allergy/AdvReac Type Severity Reaction Status Date / Time morphine Allergy Intermediate Itching Verified 03/30/19 09:55 Review of Systems ROS Statement: Those systems with pertinent positive or pertinent negative responses have been documented in the HPI. ROS Other: All systems not noted in ROS Statement are negative. Constitutional: Denies: fever, chills Respiratory: Denies: cough, dyspnea Cardiovascular: Denies: chest pain Gastrointestinal: Denies: abdominal pain, vomiting, diarrhea Musculoskeletal: Reports: back pain (Chronic) Neurological: Denies: headache Past Medical History Past Medical History: Atrial Fibrillation, Coronary Artery Disease (CAD), Diabetes Mellitus, Hyperlipidemia, Hypertension, Memory Impairment, Osteoarthritis (OA), Thyroid Disorder, Vascular Disorder Additional Past Medical History / Comment(s): 01/18/19 incisional hernia repair- open with mesh and has drain, paroxysmal Afib, NIDDM type II, PAD, decreased circulation to R lower extremity-pt states had several unsuccessful attempts at placing artificial artery, bowel surgery d/t blood clot to colon post operatively, frequent diarrhea, urinary incontinence, chronic elevated WBC, chronic low back pain/pinched nerve, bilateral shoulder pain-DJD, "forgetful", hypothyroid, vertigo at times. History of Any Multi-Drug Resistant Organisms: ESBL, VRE Date of last positivie culture/infection: 03/06/19 VRE; 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 Source:: Abdomen-VRE; Body Fluid Aspirate-ESBL Past Surgical History: Appendectomy, Bowel Resection, Breast Surgery, Cholecystectomy, Coronary Bypass/CABG, Heart Catheterization, Hernia Repair, Joint Replacement, Orthopedic Surgery Additional Past Surgical History / Comment(s): 01/18/19 incisional hernia repair- open with mesh, 12/11/17 CABG 4 vessel, 12/20/17 colectomy/ileostomy with reve rsal, R leg attempted bypasses with artificial artery which pt states were unsuccessful, L breast benign tumor removed, bilateral total knee arthroplasties, R rotator cuff repair, low back epidural injections, piccs-since removed. Past Anesthesia/Blood Transfusion Reactions: No Reported Reaction Additional Past Anesthesia/Blood Transfusion Reaction / Comment(s): Pt has recently received blood and also years ago received blood without reaction. Past Psychological History: Anxiety, Depression Additional Psychological History / Comment(s): Pt lives with her spouse in [place] and they winter in [place]. She lately has been using a walker to ambulate d/t weakness, but normally uses a cane. She no longer drives d/t rotator cuff problems, her spouse drives. She is otherwise independent. Smoking Status: Former smoker Past Alcohol Use History: None Reported Additional Past Alcohol Use History / Comment(s): Pt started smoking in 1965 and quit in 2007. She was a ppd smoker. Past Drug Use History: None Reported - Past Family History Mother Family Medical History: Cancer Additional Family Medical History / Comment(s): Uterine cancer. Father Family Medical History: Congestive Heart Failure (CHF) General Exam Limitations: no limitations General appearance: alert, in no apparent distress Head exam: Present: atraumatic, normocephalic Eye exam: Present: normal appearance. Absent: scleral icterus, conjunctival injection ENT exam: Present: normal oropharynx Respiratory exam: Present: normal lung sounds bilaterally. Absent: respiratory distress, wheezes, rales, rhonchi, stridor Cardiovascular Exam: Present: regular rate, normal rhythm, normal heart sounds. Absent: systolic murmur, diastolic murmur, rubs, gallop GI/Abdominal exam: Present: soft, other (Patient has a wound VAC dressing applied to the anterior abdomen. There is no purulent drainage. No erythema or warmth.). Absent: distended, tenderness, guarding, rebound Extremities exam: Present: normal inspection, normal capillary refill. Absent: pedal edema, calf tenderness Back exam: Present: normal inspection. Absent: CVA tenderness (R), CVA tenderness (L) Neurological exam: Present: alert, CN II-XII intact. Absent: oriented X3 (Patient disoriented to time), motor sensory deficit Skin exam: Present: warm, dry, normal color. Absent: rash Course Vital Signs 03/30/19 01:37 Temperature 98.7 F Pulse Rate 78 Respiratory 18 Rate Blood Pressure 111/84 O2 Sat by Pulse 94 L Oximetry Medical Decision Making - Medical Decision Making Patient 74-year-old woman from [facility] to be evaluated for what appears to be acute delirium. Patient was seen here yesterday for same complaint, workup including head CT was negative. The patient does appear to be delirious, and therefore be admitted pending results of cultures. Patient's does relate that she previously had hallucinations when she was on antibiotics for a different infection. Differential does include infection, owning, medication reaction. Given that this is second visit for this comp laint will admit. - Lab Data Result diagrams: 03/31/19 06:22 03/31/19 06:22 Lab Results 03/30/19 03/30/19 03/30/19 Range/Units 01:39 01:54 01:54 WBC 15.3 H (3.8-10.6) k/uL RBC 3.84 (3.80-5.40) m/uL Hgb 9.7 L (11.4-16.0) gm/dL Hct 30.3 L (34.0-46.0) % MCV 78.7 L (80.0-100.0) fL MCH 25.3 (25.0-35.0) pg MCHC 32.1 (31.0-37.0) g/dL RDW 16.3 H (11.5-15.5) % Plt Count 711 H (150-450) k/uL Neutrophils % 71 % Lymphocytes % 14 % Monocytes % 6 % Eosinophils % 8 % Basophils % 1 % Neutrophils # 10.8 H (1.3-7.7) k/uL Lymphocytes # 2.1 (1.0-4.8) k/uL Monocytes # 0.9 (0-1.0) k/uL Eosinophils # 1.2 H (0-0.7) k/uL Basophils # 0.1 (0-0.2) k/uL Hypochromasia Marked Poikilocytosis Slight Anisocytosis Slight Microcytosis Slight VBG pH (7.31-7.41) VBG pCO2 (37-51) mmHg VBG HCO3 (24-28) mmol/L Sodium 137 (137-145) mmol/L Potassium 3.8 (3.5-5.1) mmol/L Chloride 106 (98-107) mmol/L Carbon Dioxide 21 L (22-30) mmol/L Anion Gap 10 mmol/L BUN 9 (7-17) mg/dL Creatinine 0.69 (0.52-1.04) mg/dL Est GFR (CKD-EPI)AfAm >90 (>60 ml/min/1.73 sqM) Est GFR (CKD-EPI)NonAf 87 (>60 ml/min/1.73 sqM) Glucose 87 (74-99) mg/dL POC Glucose (mg/dL) 101 H (75-99) mg/dL POC Glu Tool Crib Manager ID Elías, Yazmin Plasma Lactic Acid Frederick (0.7-2.0) mmol/L Calcium 9.5 (8.4-10.2) mg/dL Total Bilirubin 0.4 (0.2-1.3) mg/dL AST 23 (14-36) U/L ALT 30 (9-52) U/L Alkaline Phosphatase 198 H (38-126) U/L Creatine Kinase (30-135) U/L Total Protein 5.9 L (6.3-8.2) g/dL Albumin 3.2 L (3.5-5.0) g/dL Urine Color Urine Appearance (Clear) Urine pH (5.0-8.0) Ur Specific [place] (1.001-1.035) Urine Protein (Negative) Urine Glucose (UA) (Negative) Urine Ketones (Negative) Urine Blood (Negative) Urine Nitrite (Negative) Urine Bilirubin (Negative) Urine Urobilinogen (<2.0) mg/dL Ur Leukocyte Esterase (Negative) 03/30/19 03/30/19 03/30/19 Range/Units 01:54 01:54 01:54 WBC (3.8-10.6) k/uL RBC (3.80-5.40) m/uL Hgb (11.4-16.0) gm/dL Hct (34.0-46.0) % MCV (80.0-100.0) fL MCH (25.0-35.0) pg MCHC (31.0-37.0) g/dL RDW (11.5-15.5) % Plt Count (150-450) k/uL Neutrophils % % Lymphocytes % % Monocytes % % Eosinophils % % Basophils % % Neutrophils # (1.3-7.7) k/uL Lymphocytes # (1.0-4.8) k/uL Monocytes # (0-1.0) k/uL Eosinophils # (0-0.7) k/uL Basophils # (0-0.2) k/uL Hypochromasia Poikilocytosis Anisocytosis Microcytosis VBG pH 7.45 H (7.31-7.41) VBG pCO2 29 L (37-51) mmHg VBG HCO3 20 L (24-28) mmol/L Sodium (137-145) mmol/L Potassium (3.5-5.1) mmol/L Chloride (98-107) mmol/L Carbon Dioxide (22-30) mmol/L Anion Gap mmol/L BUN (7-17) mg/dL Creatinine (0.52-1.04) mg/dL Est GFR (CKD-EPI)AfAm (>60 ml/min/1.73 sqM) Est GFR (CKD-EPI)NonAf (>60 ml/min/1.73 sqM) Glucose (74-99) mg/dL POC Glucose (mg/dL) (75-99) mg/dL POC Glu Tool Crib Manager ID Plasma Lactic Acid [place] 1.7 (0.7-2.0) mmol/L Calcium (8.4-10.2) mg/dL Total Bilirubin (0.2-1.3) mg/dL AST (14-36) U/L ALT (9-52) U/L Alkaline Phosphatase (38-126) U/L Creatine Kinase (30-135) U/L Total Protein (6.3-8.2) g/dL Albumin (3.5-5.0) g/dL Urine Color Light Yellow Urine Appearance Clear (Clear) Urine pH 6.0 (5.0-8.0) Ur Specific [place] 1.005 (1.001-1.035) Urine Protein Negative (Negative) Urine Glucose (UA) Negative (Negative) Urine Ketones Negative (Negative) Urine Blood Negative (Negative) Urine Nitrite Negative (Negative) Urine Bilirubin Negative (Negative) Urine Urobilinogen <2.0 (<2.0) mg/dL Ur Leukocyte Esterase Negative (Negative) 03/30/19 Range/Units 01:54 WBC (3.8-10.6) k/uL RBC (3.80-5.40) m/uL Hgb (11.4-16.0) gm/dL Hct (34.0-46.0) % MCV (80.0-100.0) fL MCH (25.0-35.0) pg MCHC (31.0-37.0) g/dL RDW (11.5-15.5) % Plt Count (150-450) k/uL Neutrophils % % Lymphocytes % % Monocytes % % Eosinophils % % Basophils % % Neutrophils # (1.3-7.7) k/uL Lymphocytes # (1.0-4.8) k/uL Monocytes # (0-1.0) k/uL Eosinophils # (0-0.7) k/uL Basophils # (0-0.2) k/uL Hypochromasia Poikilocytosis Anisocytosis Microcytosis VBG pH (7.31-7.41) VBG pCO2 (37-51) mmHg VBG HCO3 (24-28) mmol/L Sodium (137-145) mmol/L Potassium (3.5-5.1) mmol/L Chloride (98-107) mmol/L Carbon Dioxide (22-30) mmol/L Anion Gap mmol/L BUN (7-17) mg/dL Creatinine (0.52-1.04) mg/dL Est GFR (CKD-EPI)AfAm (>60 ml/min/1.73 sqM) Est GFR (CKD-EPI)NonAf (>60 ml/min/1.73 sqM) Glucose (74-99) mg/dL POC Glucose (mg/dL) (75-99) mg/dL POC Glu Tool Crib Manager ID Plasma Lactic Acid [place] (0.7-2.0) mmol/L Calcium (8.4-10.2) mg/dL Total Bilirubin (0.2-1.3) mg/dL AST (14-36) U/L ALT (9-52) U/L Alkaline Phosphatase (38-126) U/L Creatine Kinase 66 (30-135) U/L Total Protein (6.3-8.2) g/dL Albumin (3.5-5.0) g/dL Urine Color Urine Appearance (Clear) Urine pH (5.0-8.0) Ur Specific [place] (1.001-1.035) Urine Protein (Negative) Urine Glucose (UA) (Negative) Urine Ketones (Negative) Urine Blood (Negative) Urine Nitrite (Negative) Urine Bilirubin (Negative) Urine Urobilinogen (<2.0) mg/dL Ur Leukocyte Esterase (Negative) - EKG Data -: EKG Interpreted by Me EKG shows normal: sinus rhythm (With rate 76 bpm), axis (Normal), intervals (Normal), QRS complexes (Normal) Interpretation: nonspecific ST-T wave changes, LVH Disposition Clinical Impression: Acute delirium Disposition: ADMITTED IP TO THIS HOSP Condition: Fair Is patient prescribed a controlled substance at d/c from ED?: No
[2019-03-30 07:12] LABS: Glucose,Whole Blood 79 mg/dL (75-99)
[2019-03-30] MEDS ORDERED: ONDANSETRON ODT 4 MG TAB PO PRN (10:55)
[2019-03-30] MEDS ORDERED: oxyCODONE ER 20 MG TAB.ER.12H PO SCH (10:55)
[2019-03-30] MEDS ORDERED: NA PHOS,M-B/NA PHOS,DI-BA 133 ML ENEMA RECTAL PRN (10:55)
[2019-03-30] MEDS ORDERED: MAGNESIUM HYDROXIDE 2,400 MG/10 ML CUP PO PRN (10:55)
--- NOTE | 2019-03-30 12:38 | P.GSCN ---
History of Present Illness Consult date: 03/30/19 Reason for Consult: Abdominal wound History of present illness: Patient is well known to our service. Underwent recent excision of infected me sh earlier this month. Patient was transferred to the hospital yesterday because of confusion and delirium. No complaints of discomfort that we are aware of. She is afebrile without tachycardia. White blood cell count elevated. Wound VAC dressing remains in place from her transfer. Review of Systems ROS unobtainable: due to mental status Past Medical History Past Medical History: Atrial Fibrillation, Coronary Artery Disease (CAD), Diabetes Mellitus, Hyperlipidemia, Hypertension, Memory Impairment, Osteoarthrit is (OA), Thyroid Disorder, Vascular Disorder Additional Past Medical History / Comment(s): 01/18/19 incisional hernia repair- open with mesh and has drain, paroxysmal Afib, NIDDM type II, PAD, decreased circulation to R lower extremity-pt states had several unsuccessful attempts at placing artificial artery, bowel surgery d/t blood clot to colon post operatively, frequent diarrhea, urinary incontinence, chronic elevated WBC, chronic low back pain/pinched nerve, bilateral shoulder pain-DJD, "forgetful", hypothyroid, vertigo at times. 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; 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 Source:: Abdomen-VRE; Body Fluid Aspirate-ESBL Past Surgical History: Appendectomy, Bowel Resection, Breast Surgery, Cholecys tectomy, Coronary Bypass/CABG, Heart Catheterization, Hernia Repair, Joint Replacement, Orthopedic Surgery Additional Past Surgical History / Comment(s): 01/18/19 incisional hernia repair- open with mesh, 12/11/17 CABG 4 vessel, 12/20/17 colectomy/ileostomy with reversal, R leg attempted bypasses with artificial artery which pt states were unsuccessful, L breast benign tumor removed, bilateral total knee arthroplasties, R rotator cuff repair, low back epidural injections, piccs-since removed. Past Anesthesia/Blood Transfusion Reactions: No Reported Reaction Additional Past Anesthesia/Blood Transfusion Reaction / Comm: Pt has recently received blood and also years ago received blood without reaction. Past Psychological History: Anxiety, Depression Additional Psychological History / Comment(s): Pt lives with her spouse in [place] and they winter in [place]. She lately has been using a walker to ambulate d/t weakness, but normally uses a cane. She no longer drives d/t rotator cuff problems, her spouse drives. She is otherwise independent. Smoking Status: Former smoker Past Alcohol Use History: None Reported Additional Past Alcohol Use History / Comment(s): Pt started smoking in 1964 and quit in 2007. She was a ppd smoker. Past Drug Use History: None Reported - Past Family History Mother Family Medical History: Cancer Additional Family Medical History / Comment(s): Uterine cancer. Father Family Medical History: Congestive Heart Failure (CHF) Medications and Allergies Home Medications Medication Instructions Recorded Confirmed Type DULoxetine HCL [Cymbalta] 60 mg PO HS@2100 12/14/16 03/30/19 History Ergocalciferol (Vitamin D2) 50,000 unit PO COHEN 12/14/16 03/30/19 History [Vitamin D2] Amiodarone [Cordarone] 100 mg PO DAILY@0800 03/02/18 03/30/19 History Furosemide [Lasix] 40 mg PO BID@0800,1700 03/02/18 03/30/19 History Latanoprost/Pf [Latanoprost 0.005% 1 drop BOTH EYES HS@2100 03/02/18 03/30/19 History Eye Drop] Cilostazol [Pletal] 100 mg PO DAILY@0800 11/15/18 03/30/19 History Metoprolol Tartrate [Lopressor] 50 mg PO BID@0800,1700 11/15/18 03/30/19 History metFORMIN HCL [Glucophage] 500 mg PO BID@0800,1700 11/15/18 03/30/19 History Ensure Clear 1 can PO BID@0800,1700 03/05/19 03/30/19 History L.acidoph,Paracasei, B.lactis 1 cap PO BID@0800,1700 03/05/19 03/30/19 History [Probiotic] Levothyroxine Sodium [Synthroid] 88 mcg PO DAILY@0600 03/05/19 03/30/19 History Magnesium Hydroxide [Milk of 2,400 mg PO DAILY PRN 03/05/19 03/30/19 History Magnesia] Na Phos,M-B/Na Phos,Di-Ba [Fleet 133 ml RECTAL DAILY PRN 03/05/19 03/30/19 History Adult] predniSONE 10 mg PO DAILY@0800 03/05/19 03/30/19 History Ertapenem [INVanz] 1 gm IVPB Q24H #14 bag 03/11/19 03/30/19 Rx Atorvastatin [Lipitor] 40 mg PO HS@2100 tab 03/13/19 03/30/19 Rx Loperamide [Imodium] 2 mg PO BID@0800,1700 PRN #0 03/13/19 03/30/19 Rx Losartan [Cozaar] 50 mg PO DAILY@0800 tab 03/13/19 03/30/19 Rx Potassium Chloride ER [K-Dur 20] 20 meq PO DAILY #0 03/13/19 03/30/19 Rx oxyCODONE ER [OxyCONTIN] 20 mg PO BID@0800,2100 #6 tab 03/13/19 03/30/19 Rx DAPTOmycin [Cubicin] 500 mg IV DAILY@2130 03/30/19 03/30/19 History Ferrous Sulfate [Feosol] 325 mg PO DAILY@1700 03/30/19 03/30/19 History INSULIN ASPART (NovoLOG) [NovoLOG See Protocol SQ ACHS 03/30/19 03/30/19 History (formulary)] Nystatin 100,000Unit/gm Cream 1 applic TOPICAL BID@0800,2100 03/30/19 03/30/19 History [Mycostatin Cream] Ondansetron HCl [Zofran] 8 mg PO Q12H PRN 03/30/19 03/30/19 History Allergies Allergy/AdvReac Type Severity Reaction Status Date / Time morphine Allergy Intermediate Itching Verified 03/30/19 09:55 Surgical - Exam Vital Signs Temp Pulse Resp BP Pulse Ox 98.7 F 78 18 111/84 94 L 03/30/19 01:37 03/30/19 01:37 03/30/19 01:37 03/30/19 01:37 03/30/19 01:37 Physical exam: General: Well-developed, well-nourished HEENT: Normocephalic, sclerae nonicteric Abdomen: Nontender, nondistended, large midline wound, some purulent fluid at the base of the wound, no fistula noted, some gangrenous superficial fat present particularly on the left side of the wound Extremities: No edema Neuro: Confused, semi-alert Results - Labs 03/30/19 01:54 03/30/19 01:54 Abnormal Lab Results - Last 24 Hours (Table) 03/30/19 03/30/19 03/30/19 Range/Units 01:39 01:54 01:54 WBC 15.3 H (3.8-10.6) k/uL Hgb 9.7 L (11.4-16.0) gm/dL Hct 30.3 L (34.0-46.0) % MCV 78.7 L (80.0-100.0) fL RDW 16.3 H (11.5-15.5) % Plt Count 711 H (150-450) k/uL Neutrophils # 10.8 H (1.3-7.7) k/uL Eosinophils # 1.2 H (0-0.7) k/uL VBG pH (7.31-7.41) VBG pCO2 (37-51) mmHg VBG HCO3 (24-28) mmol/L Carbon Dioxide 21 L (22-30) mmol/L POC Glucose (mg/dL) 101 H (75-99) mg/dL Alkaline Phosphatase 198 H (38-126) U/L Total Protein 5.9 L (6.3-8.2) g/dL Albumin 3.2 L (3.5-5.0) g/dL 03/30/19 Range/Units 01:54 WBC (3.8-10.6) k/uL Hgb (11.4-16.0) gm/dL Hct (34.0-46.0) % MCV (80.0-100.0) fL RDW (11.5-15.5) % Plt Count (150-450) k/uL Neutrophils # (1.3-7.7) k/uL Eosinophils # (0-0.7) k/uL VBG pH 7.45 H (7.31-7.41) VBG pCO2 29 L (37-51) mmHg VBG HCO3 20 L (24-28) mmol/L Carbon Dioxide (22-30) mmol/L POC Glucose (mg/dL) (75-99) mg/dL Alkaline Phosphatase (38-126) U/L Total Protein (6.3-8.2) g/dL Albumin (3.5-5.0) g/dL Diabetes panel 11/30/19 Range/Units 01:54 Sodium 137 (137-145) mmol/L Potassium 3.8 (3.5-5.1) mmol/L Chloride 106 (98-107) mmol/L Carbon Dioxide 21 L (22-30) mmol/L BUN 9 (7-17) mg/dL Creatinine 0.69 (0.52-1.04) mg/dL Glucose 87 (74-99) mg/dL Calcium 9.5 (8.4-10.2) mg/dL AST 23 (14-36) U/L ALT 30 (9-52) U/L Alkaline Phosphatase 198 H (38-126) U/L Total Protein 5.9 L (6.3-8.2) g/dL Albumin 3.2 L (3.5-5.0) g/dL Calcium panel 03/30/19 Range/Units 01:54 Calcium 9.5 (8.4-10.2) mg/dL Albumin 3.2 L (3.5-5.0) g/dL Pituitary panel 03/30/19 Range/Units 01:54 Sodium 137 (137-145) mmol/L Potassium 3.8 (3.5-5.1) mmol/L Chloride 106 (98-107) mmol/L Carbon Dioxide 21 L (22-30) mmol/L BUN 9 (7-17) mg/dL Creatinine 0.69 (0.52-1.04) mg/dL Glucose 87 (74-99) mg/dL Calcium 9.5 (8.4-10.2) mg/dL Adrenal panel 03/30/19 Range/Units 01:54 Sodium 137 (137-145) mmol/L Potassium 3.8 (3.5-5.1) mmol/L Chloride 106 (98-107) mmol/L Carbon Dioxide 21 L (22-30) mmol/L BUN 9 (7-17) mg/dL Creatinine 0.69 (0.52-1.04) mg/dL Glucose 87 (74-99) mg/dL Calcium 9.5 (8.4-10.2) mg/dL Total Bilirubin 0.4 (0.2-1.3) mg/dL AST 23 (14-36) U/L ALT 30 (9-52) U/L Alkaline Phosphatase 198 H (38-126) U/L Total Protein 5.9 L (6.3-8.2) g/dL Albumin 3.2 L (3.5-5.0) g/dL Assessment and Plan (1) Infected hernioplasty mesh Narrative/Plan: Will replace wound VAC dressing. May require bedside debridement. Continue antibiotics per infectious disease. Continue workup of the patient's mental status changes. Current Visit: No Status: Acute Code(s): T85.79XA - INFECT/INFLM REACTION DUE TO OTH INT PROSTH DEV/GRFT, INIT SNOMED Code(s): 658458202
[2019-03-30] MEDS: metFORMIN 500 MG TAB PO SCH ×2 (12:44→17:39)
[2019-03-30] MEDS: METOPROLOL TARTRATE 50 MG TAB PO SCH ×2 (12:44→17:39)
[2019-03-30] MEDS: LEVOTHYROXINE 88 MCG TAB PO SCH (12:50)
[2019-03-30] MEDS: predniSONE 10 MG TAB PO SCH (12:52)
[2019-03-30] MEDS: CILOSTAZOL 100 MG TAB PO SCH (12:52)
[2019-03-30] MEDS: AMIODARONE 100 MG TAB PO SCH (12:52)
[2019-03-30] MEDS: POTASSIUM CHLORIDE ER 20 MEQ TAB.ER PO SCH (12:52)
[2019-03-30] MEDS: LOSARTAN 50 MG TAB PO SCH (12:54)
[2019-03-30 13:01] LABS: Glucose,Whole Blood 149 mg/dL (75-99)
[2019-03-30] MEDS ORDERED: NON FORMULARY DRUG (Ensure Clear 1 CAN) PO SCH (17:00)
[2019-03-30] MEDS: FERROUS SULFATE 325 MG TAB PO SCH (17:39)
[2019-03-30] MEDS: FUROSEMIDE 40 MG TAB PO SCH (17:39)
[2019-03-30] MEDS: LACTOBACILLUS ACIDOPH & BULGAR 1 EACH PACKET PO SCH (17:39)
--- NOTE | 2019-03-30 19:15 | P.HPIM ---
History of Present Illness H&P Date: 03/30/19 Chief Complaint: Lethargic History of presenting complaint: This is a pleasant 73-year-old patient of Dr. Alcala. Chronic stable medical conditions include atrial fibrillation, coronary artery disease, diabetes, hyperlipidemia, hypertension, Randy arthritis, hypothyroid, peripheral arterial disease. December 2017 had a "coronary bypass, complicated by ischemic bowel resulting in the ostomy and a wound VAC. Patient subsequently had intra- abdominal abscess and required protracted course of antibiotics. Back in March 2018 had an abscess and patient did have a MASTER drain in place for the same. And December 2018 patient had the incisional hernia with mesh placed. By Dr. Montoya. Patient did undergo admission for significant drainage that MASTER drain. Patient yet again admitted on March 03 and discharged on March 13 and during that admission infected mesh was removed. Patient had a wound VAC Was placed. Patient was discharged on March 13 with 2 week course of IV daptomycin, IV Invanz, and Bactrim. Wound cultures had grown S maltophilia, VRE, staph epidermidis. Patient yesterday presented to the ER with some altered mental status. When the EMS and arrived patient is back to herself. Does no fever no tachycardia and no hypertension. No abdominal pain. Patient is a very slight elevation of white count. Decided to send the patient back to the [facility] and to follow clinically. Patient returned as she again became more confused and was admitted. Patient did rather tired. Unable to give much of her history. Does no fever no tachycardia no hypertension yet again. Consultation was made to Dr. Montoya and Dr. Costa from [place] to to whom the patient is well known. is the bedside. Computed tomography scan of the ER was negative . Review of systems cannot be done as patient rather lethargic. Past medical history: Coronary artery disease with bypass, acute ischemic bowel with perforation, paroxysmal atrial fibrillation, peripheral artery disease, hypothyroid, diabetes mellitus type 2, chronic low back pain from arthritis, depression, hyperlipidemia, hypertension, recurrent intra-abdominal abscess, recent removal of infected abdominal mesh Social history: Smoked a pack a day for 43 years. Stopped in 2007 alcohol rarely. . Currently at [facility] Family history: Uterine cancer Physical examination: VITAL SIGNS: 98.4, 79, 18, 138/71, 95% room air GENERAL: BMI 31.7, laying in bed lethargic, arousable EYES: Pupils equal. Conjunctiva pale HEENT: External appearance of nose and ears normal, oral cavity dry NECK: JVD unable to assess; masses not palpable. HEART: First and second heart sounds are normal; some edema. LUNGS: Respiratory rate normal; decreased breath sounds. ABDOMEN: Soft, nontender, liver spleen not palpable, wound VAC in place. PSYCH: Lethargic, just about arousable NEUROLOGICAL: Pupils are equal, reactive, not really following commands lethargic. LYMPHATICS: No lymph nodes palpable in the axilla and neck INVESTIGATIONS, reviewed in the clinical context: White count 15.3 hemoglobin 9.7 platelets 711 potassium 3.8 crit 0.69 Recent wound cultures from the loss admission 20 S maltophilia, VRE, staph epidermidis Assessment: -This is a patient with multiple episodes of intra-abdominal abscess who recently had a abdominal infected mesh removed by Dr. Montoya. Cultures did grow multiple organisms including S maltophilia, VRE, staph epidermidis. Patient was discharged on good antibiotics with broad coverage including IV Invanz, IV daptomycin and Bactrim. Patient's abdominal examination of the benign. With no guarding rigidity or tenderness. -Altered mental status, possibly metabolic encephalopathy. Patient has no fever, no tachycardia, no hypotension. Some elevation in white count. This could be from her pain medications, she takes OxyContin. -Coronary artery disease per prior history of bypass -Paroxysmal atrial fibrillation -Peripheral artery disease -Hypothyroid -Diabetes mellitus type 2 on oral hypoglycemic -Lumbar osteoarthritis -Hyperlipidemia -Essential hypertension -History of bowel perforation recurrent intra-abdominal abscess -Obesity BMI 32.8 Plan: We'll start the patient on IV fluids. Agree with current antibiotics. Consultation was made to Dr. Montoya and Dr. costa from [place]. There are no focal symptoms. Computed tomography scan of the brain was negative. We'll DC the OxyContin. Do neuro checks. Keep a close eye. Care was discussed the at the bedside. No neurology coverage is available on the weekend. We will order EEG. Past Medical History Past Medical History: Atrial Fibrillation, Coronary Artery Disease (CAD), Diabetes Mellitus, Hyperlipidemia, Hypertension, Memory Impairment, Osteoarthritis (OA), Thyroid Disorder, Vascular Disorder Additional Past Medical History / Comment(s): 01/18/19 incisional hernia repair- open with mesh and has drain, paroxysmal Afib, NIDDM type II, PAD, decreased circulation to R lower extremity-pt states had several unsuccessful attempts at placing artificial artery, bowel surgery d/t blood clot to colon post operative ly, frequent diarrhea, urinary incontinence, chronic elevated WBC, chronic low back pain/pinched nerve, bilateral shoulder pain-DJD, "forgetful", hypothyroid, vertigo at times. History of Any Multi-Drug Resistant Organisms: ESBL, VRE Date of last positivie culture/infection: 03/06/19 VRE; 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 Source:: Abdomen-VRE; Body Fluid Aspirate-ESBL Past Surgical History: Appendectomy, Bowel Resection, Breast Surgery, Cholecystectomy, Coronary Bypass/CABG, Heart Catheterization, Hernia Repair, Joint Replacement, Orthopedic Surgery Additional Past Surgical History / Comment(s): 01/18/19 incisional hernia repair- open with mesh, 12/11/17 CABG 4 vessel, 12/20/17 colectomy/ileostomy with reversal, R leg attempted bypasses with artificial artery which pt states were unsuccessful, L breast benign tumor removed, bilateral total knee arthroplasties, R rotator cuff repair, low back epidural injections, piccs-since removed. Past Anesthesia/Blood Transfusion Reactions: No Reported Reaction Additional Past Anesthesia/Blood Transfusion Reaction / Comment(s): Pt has recently received blood and also years ago received blood without reaction. Past Psychological History: Anxiety, Depression Additional Psychological History / Comment(s): Pt lives with her spouse in [place] and they winter in [place]. She lately has been using a walker to ambulate d/t weakness, but normally uses a cane. She no longer drives d/t rotator cuff problems, her spouse drives. She is otherwise independent. Smoking Status: Former smoker Past Alcohol Use History: None Reported Additional Past Alcohol Use History / Comment(s): Pt started smoking in 1964 and quit in 2007. She was a ppd smoker. Past Drug Use History: None Reported - Past Family History Mother Family Medical History: Cancer Additional Family Medical History / Comment(s): Uterine cancer. Father Family Medical History: Congestive Heart Failure (CHF) Medications and Allergies Home Medications Medication Instructions Recorded Confirmed Type DULoxetine HCL [Cymbalta] 60 mg PO HS@2100 12/14/16 03/30/19 History Ergocalciferol (Vitamin D2) 50,000 unit PO COHEN 12/14/16 03/30/19 History [Vitamin D2] Amiodarone [Cordarone] 100 mg PO DAILY@0800 03/02/18 03/30/19 History Furosemide [Lasix] 40 mg PO BID@0800,1700 03/02/18 03/30/19 History Latanoprost/Pf [Latanoprost 0.005% 1 drop BOTH EYES HS@2100 03/02/18 03/30/19 History Eye Drop] Cilostazol [Pletal] 100 mg PO DAILY@0800 11/15/18 03/30/19 History Metoprolol Tartrate [Lopressor] 50 mg PO BID@0800,1700 11/15/18 03/30/19 History metFORMIN HCL [Glucophage] 500 mg PO BID@0800,1700 11/15/18 03/30/19 History Ensure Clear 1 can PO BID@0800,1700 03/05/19 03/30/19 History L.acidoph,Paracasei, B.lactis 1 cap PO BID@0800,1700 03/05/19 03/30/19 History [Probiotic] Levothyroxine Sodium [Synthroid] 88 mcg PO DAILY@0600 03/05/19 03/30/19 History Magnesium Hydroxide [Milk of 2,400 mg PO DAILY PRN 03/05/19 03/30/19 History Magnesia] Na Phos,M-B/Na Phos,Di-Ba [Fleet 133 ml RECTAL DAILY PRN 03/05/19 03/30/19 History Adult] predniSONE 10 mg PO DAILY@0800 03/05/19 03/30/19 History Ertapenem [INVanz] 1 gm IVPB Q24H #14 bag 03/11/19 03/30/19 Rx Atorvastatin [Lipitor] 40 mg PO HS@2100 tab 03/13/19 03/30/19 Rx Loperamide [Imodium] 2 mg PO BID@0800,1700 PRN #0 03/13/19 03/30/19 Rx Losartan [Cozaar] 50 mg PO DAILY@0800 tab 03/13/19 03/30/19 Rx Potassium Chloride ER [K-Dur 20] 20 meq PO DAILY #0 03/13/19 03/30/19 Rx oxyCODONE ER [OxyCONTIN] 20 mg PO BID@0800,2100 #6 tab 03/13/19 03/30/19 Rx DAPTOmycin [Cubicin] 500 mg IV DAILY@2130 03/30/19 03/30/19 History Ferrous Sulfate [Feosol] 325 mg PO DAILY@17003/30/19 03/30/19 History INSULIN ASPART (NovoLOG) [NovoLOG See Protocol SQ ACHS 03/30/19 03/30/19 History (formulary)] Nystatin 100,000Unit/gm Cream 1 applic TOPICAL BID@0800,209903/30/19 03/30/19 History [Mycostatin Cream] Ondansetron HCl [Zofran] 8 mg PO Q12H PRN 03/30/19 03/30/19 History Allergies Allergy/AdvReac Type Severity Reaction Status Date / Time morphine Allergy Intermediate Itching Verified 03/30/19 09:55 Physical Exam Vitals: Vital Signs Temp Pulse Pulse Resp BP BP Pulse Ox 03/30/19 13:00 98.2 F 92 18 116/77 97 03/30/19 04:11 98.4 F 79 18 138/71 95 03/30/19 03:44 79 17 138/78 95 03/30/19 01:37 98.7 F 78 18 111/84 94 L Intake and Output 03/30/19 03/30/19 03/30/19 06:59 14:59 22:59 Intake Total 421 Output Total 490 Balance -69 Intake: Oral 421 Output: Urine 490 Other: Weight 81.193 kg Results CBC & Chem 7: 03/30/19 01:54 03/30/19 01:54 Labs: Abnormal Lab Results - Last 24 Hours (Table) 03/30/19 03/30/19 03/30/19 Range/Units 01:39 01:54 01:54 WBC 15.3 H (3.8-10.6) k/uL Hgb 9.7 L (11.4-16.0) gm/dL Hct 30.3 L (34.0-46.0) % MCV 78.7 L (80.0-100.0) fL RDW 16.3 H (11.5-15.5) % Plt Count 711 H (150-450) k/uL Neutrophils # 10.8 H (1.3-7.7) k/uL Eosinophils # 1.2 H (0-0.7) k/uL VBG pH (7.31-7.41) VBG pCO2 (37-51) mmHg VBG HCO3 (24-28) mmol/L Carbon Dioxide 21 L (22-30) mmol/L POC Glucose (mg/dL) 101 H (75-99) mg/dL Alkaline Phosphatase 198 H (38-126) U/L Total Protein 5.9 L (6.3-8.2) g/dL Albumin 3.2 L (3.5-5.0) g/dL 03/30/19 03/30/19 Range/Units 01:54 12:59 WBC (3.8-10.6) k/uL Hgb (11.4-16.0) gm/dL Hct (34.0-46.0) % MCV (80.0-100.0) fL RDW (11.5-15.5) % Plt Count (150-450) k/uL Neutrophils # (1.3-7.7) k/uL Eosinophils # (0-0.7) k/uL VBG pH 7.45 H (7.31-7.41) VBG pCO2 29 L (37-51) mmHg VBG HCO3 20 L (24-28) mmol/L Carbon Dioxide (22-30) mmol/L POC Glucose (mg/dL) 149 H (75-99) mg/dL Alkaline Phosphatase (38-126) U/L Total Protein (6.3-8.2) g/dL Albumin (3.5-5.0) g/dL Thrombosis Risk Factor Assmnt - Choose All That Apply Any of the Below Risk Factors Present?: Yes Each Factor Represents 1 point: Obesity (BMI >25) Other Risk Factors: Yes Each Risk Factor Represents 3 Points: Age 75 years or older Other congenital or acquired thrombophilia - If yes, enter type in comment: No Thrombosis Risk Factor Assessment Total Risk Factor Score: 4 Thrombosis Risk Factor Assessment Level: Moderate Risk
[2019-03-30] MEDS: LACTATED RINGERS 1,000 ML IV SCH (19:29)
[2019-03-30] MEDS ORDERED: ATORVASTATIN 40 MG TAB PO SCH (21:00)
[2019-03-30] MEDS ORDERED: DAPTOmycin 500 MG VIAL IV SCH (21:30)
[2019-03-30] MEDS: LATANOPROST 0.005% OPHTH DROPS 2.5 ML BTL BOTH EYES SCH (22:27)
[2019-03-30] MEDS: DAPTOmycin 500 MG in SODIUM CHLORIDE 0.9% 50 ML IVPB SCH (22:27)
[2019-03-30] MEDS: DULoxetine HCL 60 MG CAPSULE.DR PO SCH (22:27)
[2019-03-30] MEDS: NYSTATIN 100,000UNIT/GM CREAM 30 GM TUBE TOPICAL SCH (22:27)
[2019-03-31] MEDS: ACETAMINOPHEN TAB 325 MG TAB PO PRN ×3 (03:05→20:24)
[2019-03-31] MEDS: LEVOTHYROXINE 88 MCG TAB PO SCH (05:32)
[2019-03-31] MEDS: LACTATED RINGERS 1,000 ML IV SCH ×3 (05:32→20:29)
[2019-03-31 06:50] LABS: Anisocytosis Slight; HCT 28.4 % (34.0-46.0); HGB 8.9 gm/dL (11.4-16.0); Hypochromasia Slight; MCH 24.9 pg (25.0-35.0); MCHC 31.3 g/dL (31.0-37.0); MCV 79.7 fL (80.0-100.0); Mean Platelet Volume 6.5; Microcytosis Slight; Platelet Count 624 k/uL (150-450); Poikilocytosis Slight; RBC 3.56 m/uL (3.80-5.40); RDW 17.2 % (11.5-15.5); WBC 11.1 k/uL (3.8-10.6)
[2019-03-31 06:57] LABS: ALT 27 U/L (9-52); AST 16 U/L (14-36); African American GFR (CKD) >90 (>60 ml/min/1.73 sqM); Albumin 2.7 g/dL (3.5-5.0); Alkaline Phosphatase 171 U/L (38-126); Anion Gap 9 mmol/L; Blood Urea Nitrogen 8 mg/dL (7-17); Carbon Dioxide 22 mmol/L (22-30); Chloride 108 mmol/L (98-107); Glucose 105 mg/dL (74-99); Non-African American GFR(CKD) 87 (>60 ml/min/1.73 sqM); Potassium 3.4 mmol/L (3.5-5.1); Sodium 139 mmol/L (137-145); Total Bilirubin 0.5 mg/dL (0.2-1.3); Total Protein 5.1 g/dL (6.3-8.2)
[2019-03-31] MEDS: FUROSEMIDE 40 MG TAB PO SCH ×2 (08:55→17:54)
[2019-03-31] MEDS: LACTOBACILLUS ACIDOPH & BULGAR 1 EACH PACKET PO SCH ×2 (08:55→17:54)
[2019-03-31] MEDS: CILOSTAZOL 100 MG TAB PO SCH (08:55)
[2019-03-31] MEDS: POTASSIUM CHLORIDE ER 20 MEQ TAB.ER PO SCH (08:55)
[2019-03-31] MEDS: metFORMIN 500 MG TAB PO SCH ×2 (08:55→17:54)
[2019-03-31] MEDS: METOPROLOL TARTRATE 50 MG TAB PO SCH ×2 (08:55→17:54)
[2019-03-31] MEDS: predniSONE 10 MG TAB PO SCH (08:55)
[2019-03-31] MEDS: LOSARTAN 50 MG TAB PO SCH (08:55)
[2019-03-31] MEDS: AMIODARONE 100 MG TAB PO SCH (08:55)
[2019-03-31] MEDS: NYSTATIN 100,000UNIT/GM CREAM 30 GM TUBE TOPICAL SCH ×2 (08:56→20:27)
--- NOTE | 2019-03-31 10:11 | P.PN ---
Subjective Progress Note Date: 03/31/19 Principal diagnosis: Abdominal wound Patient doing well today. Her delirium has resolved. She appears completely alert at this time. Denies pain. Tolerating diet. White blood cell count 11.1. She is afebrile. Cultures and C. diff currently negative. Objective - Vital Signs Vital signs: Vital Signs Temp 97.5 F L 03/31/19 05:00 Pulse 80 03/31/19 05:00 Resp 16 03/31/19 05:00 BP 124/67 03/31/19 05:00 Pulse Ox 95 03/31/19 05:00 Intake & Output 03/30/19 03/31/19 03/31/19 18:59 06:59 18:59 Intake Total 421 1500 Output Total 490 Balance -69 1500 Intake: Intake, IV Titration 1500 Amount Lactated Ringers 1,000 ml 1500 @ 125 mls/hr IV .Q8H WILLIAM Rx#:[id number] Oral 421 Output: Urine 490 Other: Voiding Method Diaper Diaper Incontinent Incontinent # Voids 2 1 # Bowel Movements 1 1 - Exam Abdomen: Soft, nondistended, nontender, wound VAC in place - Labs CBC & Chem 7: 03/31/19 06:22 03/31/19 06:22 Labs: Abnormal Lab Results - Last 24 Hours (Table) 03/30/19 03/31/19 03/31/19 Range/Units 12:59 06:22 06:22 WBC 11.1 H (3.8-10.6) k/uL RBC 3.56 L (3.80-5.40) m/uL Hgb 8.9 L (11.4-16.0) gm/dL Hct 28.4 L (34.0-46.0) % MCV 79.7 L (80.0-100.0) fL MCH 24.9 L (25.0-35.0) pg RDW 17.2 H (11.5-15.5) % Plt Count 624 H (150-450) k/uL Potassium 3.4 L (3.5-5.1) mmol/L Chloride 108 H (98-107) mmol/L Glucose 105 H (74-99) mg/dL POC Glucose (mg/dL) 149 H (75-99) mg/dL Alkaline Phosphatase 171 H (38-126) U/L Total Protein 5.1 L (6.3-8.2) g/dL Albumin 2.7 L (3.5-5.0) g/dL Microbiology - Last 24 Hours (Table) 03/30/19 01:54 Blood Culture - Preliminary Blood No Growth after 24 hours Assessment and Plan (1) Infected hernioplasty mesh Narrative/Plan: Continue VAC therapy. Continue regular diet. Continue workup of the patient's delirium. May require bedside debridement. Current Visit: No Status: Acute Code(s): T85.79XA - INFECT/INFLM REACTION DUE TO OTH INT PROSTH DEV/GRFT, INIT SNOMED Code(s): 360509527
[2019-03-31] MEDS: FERROUS SULFATE 325 MG TAB PO SCH (17:53)
[2019-03-31] MEDS: DAPTOmycin 500 MG in SODIUM CHLORIDE 0.9% 50 ML IVPB SCH (20:23)
[2019-03-31] MEDS: DULoxetine HCL 60 MG CAPSULE.DR PO SCH (20:24)
[2019-03-31] MEDS: LOPERAMIDE 2 MG CAP PO PRN (20:24)
[2019-03-31] MEDS: LATANOPROST 0.005% OPHTH DROPS 2.5 ML BTL BOTH EYES SCH (21:08)
--- NOTE | 2019-03-31 23:52 | P.PN ---
Progress Note - Text Progress Note Date: 03/31/19 Chief Complaint: Lethargic History of presenting complaint: This is a pleasant 73-year-old patient of Dr. Alcala. Chronic stable medical conditions include atrial fibrillation, coronary artery disease, diabetes, hyperlipidemia, hypertension, Randy arthritis, hypothyroid, peripheral arterial disease. December 2017 had a "coronary bypass, complicated by ischemic bowel resulting in the ostomy and a wound VAC. Patient subsequently had intra- abdominal abscess and required protracted course of antibiotics. Back in March 2018 had an abscess and patient did have a MASTER drain in place for the same. And December 2018 patient had the incisional hernia with mesh placed. By Dr. Montoya. Patient did undergo admission for significant drainage that MASTER drain. Patient yet again admitted on March 03 and discharged on March 13 and during that admission infected mesh was removed. Patient had a wound VAC Was placed. Patient was discharged on March 13 with 2 week course of IV daptomycin, IV Invanz, and Bactrim. Wound cultures had grown S maltophilia, VR E, staph epidermidis. Patient yesterday presented to the ER with some altered mental status. When the EMS and arrived patient is back to herself. Does no fever no tachycardia and no hypertension. No abdominal pain. Patient is a very slight elevation of white count. Decided to send the patient back to the [facility] and to follow clinically. Patient returned as she again became more confused and was admitted. Patient did rather tired. Unable to give much of her history. Does no fever no tachycardia no hypertension yet again. Consultation was made to Dr. Montoya and Dr. Lancaster from [place] to to whom the patient is well known. is the bedside. Computed tomography scan of the ER was negative. Patient was felt to be in metabolic encephalopathy from her pain medications. Today-alert today. Feeling much better. Having a conversation. Did get a oral intake. Requesting of pain medicines Review of systems: Was done for constitutional, cardiovascular, GI, pulmonary. relevant finding as above Active Medications Acetaminophen (Tylenol Tab) 650 mg PO Q6HR PRN PRN Reason: Mild Pain or Fever > 100.5 Last Admin: 03/31/19 20:24 Dose: 650 mg Documented by: Amiodarone HCl (Cordarone) 100 mg PO DAILY@0800 WILLIAM Last Admin: 03/31/19 08:55 Dose: 100 mg Documented by: Cilostazol (Pletal) 100 mg PO DAILY@0800 REPLACED BY [facility] Last Admin: 03/31/19 08:55 Dose: 100 mg Documented by: Duloxetine HCl (Cymbalta) 60 mg PO HS@2100 REPLACED BY [facility] Last Admin: 03/31/19 20:24 Dose: 60 mg Documented by: Ferrous Sulfate (Feosol) 325 mg PO DAILY@1700 REPLACED BY [facility] Last Admin: 03/31/19 17:53 Dose: 325 mg Documented by: Furosemide (Lasix) 40 mg PO BID@0800,1700 REPLACED BY [facility] Last Admin: 03/31/19 17:54 Dose: 40 mg Documented by: Ceftazidime 2 gm/ Sodium (Chloride) 100 mls @ 100 mls/hr IVPB Q8HR REPLACED BY [facility] Last Admin: 03/31/19 14:48 Dose: 100 mls/hr Documented by: Daptomycin 500 mg/ Sodium (Chloride) 50 mls @ 100 mls/hr IVPB [facility]; Protocol Last Admin: 03/31/19 20:23 Dose: 100 mls/hr Documented by: Lactated Ringer's (Lactated Ringers) 1,000 mls @ 125 mls/hr IV .Q8H REPLACED BY [facility] Last Admin: 03/31/19 20:29 Dose: 125 mls/hr Documented by: Lactobacillus Acidoph/Bulgaricus (Lactinex) 1 each PO BID@0800,1700 REPLACED BY [facility] Last Admin: 03/31/19 17:54 Dose: 1 each Documented by: Latanoprost (Xalatan 0.005%) 1 drops BOTH EYES HS@2100 REPLACED BY [facility] Last Admin: 03/31/19 21:08 Dose: 1 drops Documented by: Levothyroxine Sodium (Synthroid) 88 mcg PO DAILY@0630 REPLACED BY [facility] Last Admin: 03/31/19 05:32 Dose: 88 mcg Documented by: Loperamide HCl (Imodium) 2 mg PO BID PRN PRN Reason: Loose Stool Last Admin: 03/31/19 20:24 Dose: 2 mg Documented by: Losartan Potassium (Cozaar) 50 mg PO DAILY@0800 REPLACED BY [facility] Last Admin: 03/31/19 08:55 Dose: 50 mg Documented by: Magnesium Hydroxide (Milk Of Magnesia) 2,400 mg PO DAILY PRN PRN Reason: Constipation Metformin HCl (Glucophage) 500 mg PO BID@0800,1700 REPLACED BY [facility] Last Admin: 03/31/19 17:54 Dose: 500 mg Documented by: Metoprolol Tartrate (Lopressor) 50 mg PO BID@0800,1700 REPLACED BY [facility] Last Admin: 03/31/19 17:54 Dose: 50 mg Documented by: Naloxone HCl (Narcan) 0.2 mg IV Q2M PRN PRN Reason: Opioid Reversal Nystatin (Mycostatin Cream) 1 applic TOPICAL BID@0800,2100 REPLACED BY [facility] Last Admin: 03/31/19 20:27 Dose: 1 applic Documented by: Ondansetron HCl (Zofran Odt) 8 mg PO Q12H PRN PRN Reason: Nausea Oxycodone HCl (Oxycontin 15mg E.R.) 15 mg PO Q12HR REPLACED BY [facility] Potassium Chloride (K-Dur 20) 20 meq PO DAILY REPLACED BY [facility] Last Admin: 03/31/19 08:55 Dose: 20 meq Documented by: Prednisone () 10 mg PO DAILY@0800 REPLACED BY [facility] Last Admin: 03/31/19 08:55 Dose: 10 mg Documented by: Sodium Biphosphate/Sodium Phosphate (Fleet Adult) 133 ml RECTAL DAILY PRN PRN Reason: Constipation Physical examination: VITAL SIGNS: 97.7, 77, 18, 110/63, 98% room air GENERAL: Laying in bed, awake EYES: Pupils equal. Conjunctiva pale HEENT: External appearance of nose and ears normal, oral cavity dry NECK: JVD unable to assess; masses not palpable. HEART: First and second heart sounds are normal; some edema. LUNGS: Respiratory rate normal; decreased breath sounds. ABDOMEN: Soft, nontender, liver spleen not palpable, wound VAC in place. PSYCH: AAO 3, motor affect normal INVESTIGATIONS, reviewed in the clinical context: White count 10.1 hemoglobin 8.9 progression 3.4 creatinine 0.69 Previous testing White count 15.3 hemoglobin 9.7 platelets 711 potassium 3.8 crit 0.69 Recent wound cultures from the last admission - S maltophilia, VRE, staph epidermidis Assessment: -This is a patient with multiple episodes of intra-abdominal abscess who recently had a abdominal infected mesh removed by Dr. Montoya. Cultures did grow multiple organisms including S maltophilia, VRE, staph epidermidis. Patient was discharged on good antibiotics with broad coverage including IV In vanz, IV daptomycin and Bactrim. Patient's abdominal examination of the benign. With no guarding rigidity or tenderness. -Altered mental status, possibly metabolic encephalopathy. Patient has no fe jonathan, no tachycardia, no hypotension. Some elevation in white count. This could be from her pain medications, she takes OxyContin.-Improved -Coronary artery disease per prior history of bypass -Paroxysmal atrial fibrillation -Peripheral artery disease -Hypothyroid -Diabetes mellitus type 2 on oral hypoglycemic -Lumbar osteoarthritis -Hyperlipidemia -Essential hypertension -History of bowel perforation recurrent intra-abdominal abscess -Obesity BMI 32.8 Plan: Resume OxyContin ER 15 mg every 12. Care was discussed with the patient. Other medications to continue. Care was discussed with the patient.
[2019-03-31] MEDS: oxyCODONE ER 15 MG TAB.ER.12H PO SCH (23:59)
[2019-04-01] MEDS: LACTATED RINGERS 1,000 ML IV SCH ×3 (06:12→20:46)
[2019-04-01] MEDS: LEVOTHYROXINE 88 MCG TAB PO SCH (06:12)
[2019-04-01] MEDS: LOSARTAN 50 MG TAB PO SCH (08:00)
[2019-04-01] MEDS: METOPROLOL TARTRATE 50 MG TAB PO SCH ×2 (08:00→16:57)
[2019-04-01] MEDS: oxyCODONE ER 15 MG TAB.ER.12H PO SCH ×2 (08:00→20:35)
[2019-04-01] MEDS: FUROSEMIDE 40 MG TAB PO SCH ×2 (08:00→16:57)
[2019-04-01] MEDS: predniSONE 10 MG TAB PO SCH (08:01)
[2019-04-01] MEDS: NYSTATIN 100,000UNIT/GM CREAM 30 GM TUBE TOPICAL SCH ×2 (08:01→20:36)
[2019-04-01] MEDS: POTASSIUM CHLORIDE ER 20 MEQ TAB.ER PO SCH (08:01)
[2019-04-01] MEDS: metFORMIN 500 MG TAB PO SCH ×2 (08:01→16:57)
[2019-04-01] MEDS: AMIODARONE 100 MG TAB PO SCH (08:02)
[2019-04-01] MEDS: LACTOBACILLUS ACIDOPH & BULGAR 1 EACH PACKET PO SCH ×2 (08:02→17:00)
[2019-04-01] MEDS: CILOSTAZOL 100 MG TAB PO SCH (08:02)
[2019-04-01] MEDS: LOPERAMIDE 2 MG CAP PO PRN ×2 (13:01→15:11)
--- NOTE | 2019-04-01 13:31 | P.PN ---
Subjective Progress Note Date: 04/01/19 CHIEF COMPLAINT: Abdominal wound HISTORY OF PRESENT ILLNESS: Patient examined this morning at the bedside. She denies abdominal pain. Confusion has improved. Tolerating diet. Vital signs stable. She is afebrile. PHYSICAL EXAM: VITAL SIGNS: Reviewed. GENERAL: Well-developed in no acute distress. HEENT: No sclera icterus. Extraocular movements grossly intact. Moist buccal mucosa. Head is atraumatic, normocephalic. ABDOMEN: Soft. Nondistended. Nontender. Wound vac noted. NEUROLOGIC: Alert and oriented. Cranial nerves II through XII grossly intact. ASSESSMENT: 1. History of infected hernioplasty mesh PLAN: Continue diet as tolerated Continue wound vac Dr. Montoya to assess wound this afternoon Nurse practitioner note has been reviewed by physician. Signing provider agrees with the documented findings, assessment, and plan of care. Objective - Vital Signs Vital signs: Vital Signs Temp 98 F 04/01/19 11:20 Pulse 78 04/01/19 11:20 Resp 20 04/01/19 11:20 BP 131/73 04/01/19 11:20 Pulse Ox 97 04/01/19 11:20 Intake & Output 03/31/19 04/01/19 04/01/19 18:59 06:59 18:59 Intake Total 2300 2800 1000 Balance 2300 2800 1000 Intake: Intake, IV Titration 1500 1850 1000 Amount DAPTOmycin 500 mg In 50 Sodium Chloride 0.9% 50 ml @ 100 mls/hr IVPB HS WILLIAM Rx#:[id number] Lactated Ringers 1,000 ml 1500 1700 1000 @ 125 mls/hr IV .Q8H WILLIAM Rx#:[id number] cefTAZidime 2 gm In 100 Sodium Chloride 0.9% 100 ml @ 100 mls/hr IVPB Q8HR WILLIAM Rx#:[id number] Oral 800 950 Other: Voiding Method Diaper Diaper Diaper Incontinent Incontinent Incontinent # Voids 2 2 # Bowel Movements 1 1 - Labs CBC & Chem 7: 03/31/19 06:22 03/31/19 06:22 Labs: Microbiology - Last 24 Hours (Table) 03/30/19 01:54 Blood Culture - Preliminary Blood No Growth after 48 hours
[2019-04-01] MEDS: FERROUS SULFATE 325 MG TAB PO SCH (16:57)
--- NOTE | 2019-04-01 18:38 | EEG ---
ELECTROENCEPHALOGRAM REPORT DATE OF PROCEDURE: 04/01/2019 ELECTROENCEPHALOGRAM (EEG) REPORT: TECHNIQUE: A routine 18-channel EEG was performed with video using the 10/20 international electrode placement system. HISTORY: Intermittent episodes of confusion. CURRENT MEDICATIONS: Metoprolol, levothyroxine, furosemide, OxyContin, Cordarone, ceftazidime. STUDY DURATION: 22 minutes. FINDINGS: Please note that portions of this recording were limited in interpretation by the presence of muscle artifact. BACKGROUND: The background activity consists of 7 to 8 Hz rhythmic waveforms symmetrically distributed through both posterior quadrants. ACTIVATION: Hyperventilation: Not performed. Photic stimulation: No driving seen. Sleep: None. ABNORMALITIES: Intermittent diffuse 5 to 7 Hz polymorphic theta range slowing was seen. IMPRESSION: Abnormal EEG. The intermittent diffuse polymorphic theta range slowing mentioned above is not epileptiform in nature. In combination with the slow background, these findings indicate mild diffuse cerebral dysfunction as may be seen in a toxometabolic encephalopathy. No seizures were recorded. No epileptiform activity was present. MMODL / IJN: [id number] /
[2019-04-01] MEDS: LATANOPROST 0.005% OPHTH DROPS 2.5 ML BTL BOTH EYES SCH (20:35)
[2019-04-01] MEDS: DULoxetine HCL 60 MG CAPSULE.DR PO SCH (20:35)
[2019-04-01] MEDS: DAPTOmycin 500 MG in SODIUM CHLORIDE 0.9% 50 ML IVPB SCH (20:35)
[2019-04-01] MEDS: ACETAMINOPHEN TAB 325 MG TAB PO PRN (21:41)
--- NOTE | 2019-04-02 00:52 | P.PN ---
Progress Note - Text Progress Note Date: 04/01/19 Chief Complaint: Lethargic History of presenting complaint: This is a pleasant 73-year-old patient of Dr. Alcala. Chronic stable medical conditions include atrial fibrillation, coronary artery disease, diabetes, hyperlipidemia, hypertension, Randy arthritis, hypothyroid, peripheral arterial disease. December 2017 had a "coronary bypass, complicated by ischemic bowel resulting in the ostomy and a wound VAC. Patient subsequently had intra- abdominal abscess and required protracted course of antibiotics. Back in March 2018 had an abscess and patient did have a MASTER drain in place for the same. And December 2018 patient had the incisional hernia with mesh placed. By Dr. Montoya. Patient did undergo admission for significant drainage that MASTER drain. Patient yet again admitted on March 03 and discharged on March 13 and during that admission infected mesh was removed. Patient had a wound VAC Was placed. Patient was discharged on March 13 with 2 week course of IV daptomycin, IV Invanz, and Bactrim. Wound cultures had grown S maltophilia, VR E, staph epidermidis. Patient yesterday presented to the ER with some altered mental status. When the EMS and arrived patient is back to herself. Does no fever no tachycardia and no hypertension. No abdominal pain. Patient is a very slight elevation of white count. Decided to send the patient back to the [facility] and to follow clinically. Patient returned as she again became more confused and was admitted. Patient did rather tired. Unable to give much of her history. Does no fever no tachycardia no hypertension yet again. Consultation was made to Dr. Montoya and Dr. Lancaster from [place] to to whom the patient is well known. is the bedside. Computed tomography scan of the ER was negative. Patient was felt to be in metabolic encephalopathy from her pain medications.patient's OxyContin was discontinued. Patient did wake up the following day. Patient was resumed OxyContin on a reduced dose. Today-seen by me earlier today. Patient doing well.pain controlled. Awaiting to see if Dr. Montoya may debride the abdominal wound.. Review of systems: Was done for constitutional, cardiovascular, GI, pulmonary. relevant finding as above Active Medications Acetaminophen (Tylenol Tab) 650 mg PO Q6HR PRN PRN Reason: Mild Pain or Fever > 100.5 Last Admin: 04/01/19 21:41 Dose: 650 mg Documented by: Amiodarone HCl (Cordarone) 100 mg PO DAILY@0800 [facility] Last Admin: 04/01/19 08:02 Dose: 100 mg Documented by: Cilostazol (Pletal) 100 mg PO DAILY@0800 [facility] Last Admin: 04/01/19 08:02 Dose: 100 mg Documented by: Duloxetine HCl (Cymbalta) 60 mg PO HS@2100 [facility] Last Admin: 04/01/19 20:35 Dose: 60 mg Documented by: Ferrous Sulfate (Feosol) 325 mg PO DAILY@1700 [facility] Last Admin: 04/01/19 16:57 Dose: 325 mg Documented by: Furosemide (Lasix) 40 mg PO BID@0800,1700 [facility] Last Admin: 04/01/19 16:57 Dose: 40 mg Documented by: Ceftazidime 2 gm/ Sodium (Chloride) 100 mls @ 100 mls/hr IVPB Q8HR [facility] Last Admin: 04/01/19 23:52 Dose: 100 mls/hr Documented by: Daptomycin 500 mg/ Sodium (Chloride) 50 mls @ 100 mls/hr IVPB [facility]; Protocol Last Admin: 04/01/19 20:35 Dose: 100 mls/hr Documented by: Lactated Ringer's (Lactated Ringers) 1,000 mls @ 125 mls/hr IV .Q8H [facility] Last Admin: 04/01/19 20:46 Dose: 125 mls/hr Documented by: Lactobacillus Acidoph/Bulgaricus (Lactinex) 1 each PO BID@0800,1700 [facility] Last Admin: 04/01/19 17:00 Dose: 1 each Documented by: Latanoprost (Xalatan 0.005%) 1 drops BOTH EYES HS@2100 [facility] Last Admin: 04/01/19 20:35 Dose: 1 drops Documented by: Levothyroxine Sodium (Synthroid) 88 mcg PO DAILY@0630 [facility] Last Admin: 04/01/19 06:12 Dose: 88 mcg Documented by: Loperamide HCl (Imodium) 2 mg PO BID PRN PRN Reason: Loose Stool Last Admin: 04/01/19 15:11 Dose: 2 mg Documented by: Losartan Potassium (Cozaar) 50 mg PO DAILY@0800 [facility] Last Admin: 04/01/19 08:00 Dose: 50 mg Documented by: Magnesium Hydroxide (Milk Of Magnesia) 2,400 mg PO DAILY PRN PRN Reason: Constipation Metformin HCl (Glucophage) 500 mg PO BID@0800,1700 [facility] Last Admin: 04/01/19 16:57 Dose: 500 mg Documented by: Metoprolol Tartrate (Lopressor) 50 mg PO BID@0800,1700 [facility] Last Admin: 04/01/19 16:57 Dose: 50 mg Documented by: Naloxone HCl (Narcan) 0.2 mg IV Q2M PRN PRN Reason: Opioid Reversal Nystatin (Mycostatin Cream) 1 applic TOPICAL BID@0800,2100 [facility] Last Admin: 04/01/19 20:36 Dose: Not Given Documented by: Ondansetron HCl (Zofran Odt) 8 mg PO Q12H PRN PRN Reason: Nausea Oxycodone HCl (Oxycontin 15mg E.R.) 15 mg PO Q12HR [facility] Last Admin: 04/01/19 20:35 Dose: 15 mg Documented by: Potassium Chloride (K-Dur 20) 20 meq PO DAILY [facility] Last Admin: 04/01/19 08:01 Dose: 20 meq Documented by: Prednisone () 10 mg PO DAILY@0800 [facility] Last Admin: 04/01/19 08:01 Dose: 10 mg Documented by: Sodium Biphosphate/Sodium Phosphate (Fleet Adult) 133 ml RECTAL DAILY PRN PRN Reason: Constipation Physical examination: VITAL SIGNS: 98, 78, 20, 131/73, 97% room air GENERAL: sitting at the edge of the bed, comfortable EYES: Pupils equal. Conjunctiva pale HEENT: External appearance of nose and ears normal, oral cavity dry NECK: JVD unable to assess; masses not palpable. HEART: First and second heart sounds are normal; some edema. LUNGS: Respiratory rate normal; decreased breath sounds. ABDOMEN: Soft, nontender, liver spleen not palpable, abdominal wound edges appear a bit raw. PSYCH: AAO 3, motor affect normal INVESTIGATIONS, reviewed in the clinical context: White count 10.1 hemoglobin 8.9 progression 3.4 creatinine 0.69 Previous testing White count 15.3 hemoglobin 9.7 platelets 711 potassium 3.8 crit 0.69 Recent wound cultures from the last admission - S maltophilia, VRE, staph epidermidis Assessment: -This is a patient with multiple episodes of intra-abdominal abscess who recently had a abdominal infected mesh removed by Dr. Montoya. Cultures did grow multiple organisms including S maltophilia, VRE, staph epidermidis. Patient was discharged on good antibiotics with broad coverage including IV Invanz, IV daptomycin and Bactrim. Patient's abdominal examination of the benign. With no guarding rigidity or tenderness. -Altered mental status, possibly metabolic encephalopathy. improved after cutting back the dose of OxyContin -Coronary artery disease per prior history of bypass -Paroxysmal atrial fibrillation -Peripheral artery disease -Hypothyroid -Diabetes mellitus type 2 on oral hypoglycemic -Lumbar osteoarthritis -Hyperlipidemia -Essential hypertension -History of bowel perforation recurrent intra-abdominal abscess -Obesity BMI 32.8 Plan: awaiting decision from Dr. Montoya to see if he might debrided the wound. Other medication treatment plan to continue. Pain well controlled. Discussed with the patient.
[2019-04-02] MEDS: LEVOTHYROXINE 88 MCG TAB PO SCH (06:03)
[2019-04-02] MEDS: LACTATED RINGERS 1,000 ML IV SCH ×3 (06:03→23:45)
--- NOTE | 2019-04-02 07:10 | P.CONS ---
History of Present Illness - Reason for Consult Consult date: 04/01/19 infected abdominal hernioplasty mesh Requesting physician: Parveen Dietz - Chief Complaint mental status changes1 day - History of Present Illness patient is a 74-year-old female with a past medical history significant for infected abdominal hernioplasty mesh that was removed on her last admission to the hospital abdominal culture were positive for multiple pa thogens including stenotrophomonas ESBL E. coli and VRE, patient was advised a two-week course of IV daptomycin and Invanz and oral Bactrim DS, along with local wound care with a wound VAC patient was receiving this treatment and local senior living, patient has been sent back to the ER at [facility] with mental status changes and confusion apparently about 1 day duration patient denies any headache or URI symptoms no chest pain or shortness of breath very minimal cough currently denies any abdominal pain no problems with the wound VAC no diarrhea or any urinary symptoms on arrival to the ER the patient was afebrile she did have elevated white count of 15,000 chest x-ray was negative for any pneumonia he has been negative patient has been admitted to the hospital for workup of mental status changes antibiotic has been Fortaz and daptomycin infectious disease was consulted for further recommendation regarding local wound care and antibiotic therapy Review of Systems Positive point has been mentioned in the HPI rest of the systems are negative Past Medical History Past Medical History: Atrial Fibrillation, Coronary Artery Disease (CAD), Diabetes Mellitus, Hyperlipidemia, Hypertension, Memory Impairment, Osteoarthritis (OA), Thyroid Disorder, Vascular Disorder Additional Past Medical History / Comment(s): 01/18/19 incisional hernia repair- open with mesh and has drain, paroxysmal Afib, NIDDM type II, PAD, decreased circulation to R lower extremity-pt states had several unsuccessful attempts at placing artificial artery, bowel surgery d/t blood clot to colon post operatively, frequent diarrhea, urinary incontinence, chronic elevated WBC, chronic low back pain/pinched nerve, bilateral shoulder pain-DJD, "forgetful", hypothyroid, vertigo at times. 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; 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 Source:: Abdomen-VRE; Body Fluid Aspirate-ESBL Past Surgical History: Appendectomy, Bowel Resection, Breast Surgery, Cholecystectomy, Coronary Bypass/CABG, Heart Catheterization, Hernia Repair, Joint Replacement, Orthopedic Surgery Additional Past Surgical History / Comment(s): 01/18/19 incisional hernia repair- open with mesh, 12/11/17 CABG 4 vessel, 12/20/17 colectomy/ileostomy with re versal, R leg attempted bypasses with artificial artery which pt states were unsuccessful, L breast benign tumor removed, bilateral total knee arthroplasties, R rotator cuff repair, low back epidural injections, piccs-since removed. Past Anesthesia/Blood Transfusion Reactions: No Reported Reaction Additional Past Anesthesia/Blood Transfusion Reaction / Comm: Pt has recently received blood and also years ago received blood without reaction. Past Psychological History: Anxiety, Depression Additional Psychological History / Comment(s): Pt lives with her spouse in [place] and they winter in [place]. She lately has been using a walker to ambulate d/t weakness, but normally uses a cane. She no longer drives d/t rotator cuff problems, her spouse drives. She is otherwise independent. Smoking Status: Former smoker Past Alcohol Use History: None Reported Additional Past Alcohol Use History / Comment(s): Pt started smoking in 1964 and quit in 2007. She was a ppd smoker. Past Drug Use History: None Reported - Past Family History Mother Family Medical History: Cancer Additional Family Medical History / Comment(s): Uterine cancer. Father Family Medical History: Congestive Heart Failure (CHF) Medications and Allergies Home Medications Medication Instructions Recorded Confirmed Type DULoxetine HCL [Cymbalta] 60 mg PO HS@209912/14/16 03/30/19 History Ergocalciferol (Vitamin D2) 50,000 unit PO COHEN 12/14/16 03/30/19 History [Vitamin D2] Amiodarone [Cordarone] 100 mg PO DAILY@0803/02/18 03/30/19 History Furosemide [Lasix] 40 mg PO BID@0800,1700 03/02/18 03/30/19 History Latanoprost/Pf [Latanoprost 0.005% 1 drop BOTH EYES HS@209903/02/18 03/30/19 History Eye Drop] Cilostazol [Pletal] 100 mg PO DAILY@0800 11/15/18 03/30/19 History Metoprolol Tartrate [Lopressor] 50 mg PO BID@0800,1700 11/15/18 03/30/19 History metFORMIN HCL [Glucophage] 500 mg PO BID@0800,1700 11/15/18 03/30/19 History Ensure Clear 1 can PO BID@0800,1700 03/05/19 03/30/19 History L.acidoph,Paracasei, B.lactis 1 cap PO BID@0800,1700 03/05/19 03/30/19 History [Probiotic] Levothyroxine Sodium [Synthroid] 88 mcg PO DAILY@0600 03/05/19 03/30/19 History Magnesium Hydroxide [Milk of 2,400 mg PO DAILY PRN 03/05/19 03/30/19 History Magnesia] Na Phos,M-B/Na Phos,Di-Ba [Fleet 133 ml RECTAL DAILY PRN 03/05/19 03/30/19 History Adult] predniSONE 10 mg PO DAILY@0800 03/05/19 03/30/19 History Ertapenem [INVanz] 1 gm IVPB Q24H #14 bag 03/11/19 03/30/19 Rx Atorvastatin [Lipitor] 40 mg PO HS@2100 tab 03/13/19 03/30/19 Rx Loperamide [Imodium] 2 mg PO BID@0800,1700 PRN #0 03/13/19 03/30/19 Rx Losartan [Cozaar] 50 mg PO DAILY@0800 tab 03/13/19 03/30/19 Rx Potassium Chloride ER [K-Dur 20] 20 meq PO DAILY #0 03/13/19 03/30/19 Rx oxyCODONE ER [OxyCONTIN] 20 mg PO BID@0800,2100 #6 tab 03/13/19 03/30/19 Rx DAPTOmycin [Cubicin] 500 mg IV DAILY@2130 03/30/19 03/30/19 History Ferrous Sulfate [Feosol] 325 mg PO DAILY@1700 03/30/19 03/30/19 History INSULIN ASPART (NovoLOG) [NovoLOG See Protocol SQ ACHS 03/30/19 03/30/19 History (formulary)] Nystatin 100,000Unit/gm Cream 1 applic TOPICAL BID@0800,2100 03/30/19 03/30/19 History [Mycostatin Cream] Ondansetron HCl [Zofran] 8 mg PO Q12H PRN 03/30/19 03/30/19 History Allergies Allergy/AdvReac Type Severity Reaction Status Date / Time morphine Allergy Intermediate Itching Verified 03/30/19 09:55 Physical Exam Vitals: Vital Signs Temp Pulse Resp BP Pulse Ox 04/01/19 08:00 79 18 04/01/19 04:45 97.5 F L 79 18 132/72 97 04/01/19 00:08 18 03/31/19 21:00 97.7 F 77 18 110/63 98 03/31/19 11:24 97.1 F L 85 18 128/71 98 Intake and Output 03/31/19 04/01/19 04/01/19 22:59 06:59 14:59 Intake Total 1140 1660 Balance 1140 1660 Intake: Intake, IV Titration 550 1300 Amount DAPTOmycin 500 mg In 50 Sodium Chloride 0.9% 50 ml @ 100 mls/hr IVPB HS [facility] Rx#:[id number] Lactated Ringers 1,000 ml 500 1200 @ 125 mls/hr IV .Q8H [facility] Rx#:[id number] cefTAZidime 2 gm In 100 Sodium Chloride 0.9% 100 ml @ 100 mls/hr IVPB Q8HR [facility] Rx#:[id number] Oral 590 360 Other: Voiding Method Diaper Diaper Diaper Incontinent Incontinent Incontinent # Voids 2 2 # Bowel Movements 1 GENERAL DESCRIPTION: an elderly female lying in bed, no distress. No tachypnea or accessory muscle of respiration use. HEENT: Shows Pallor , no scleral icterus. Oral mucous membrane is dry. No pharyngeal erythema or thrush NECK: Trachea central, no thyromegaly. LUNGS: Unlabored breathing. Clear to auscultation anteriorly. No wheeze or crackle. HEART: S1, S2, regular rate and rhythm. No loud murmur ABDOMEN: Soft, midline abdominal wound with minimal slough tissue overall coordination tissue no foul-smelling drainage or surrounding redness ,no tenderness , guarding or rigidity, no organomegaly EXTREMITIES: No edema of feet. SKIN: No rash, no masses palpable. NEUROLOGICAL: The patient is awake, alert, oriented x3, mood and affect normal. Results CBC & Chem 7: 03/31/19 06:22 03/31/19 06:22 Labs: Microbiology - Last 24 Hours (Table) 03/30/19 01:54 Blood Culture - Preliminary Blood No Growth after 48 hours Assessment and Plan Assessment: 1-patient with a distant history of infected abdominal hernioplasty mesh status post removal of the same and drainage of the abscess culture were positive for stenotrophomonas VRE in ESBL E. coli in this patient currently admitted hospital with confusion she did have elevated white count on admission though has come down to 11,000 today patient has been afebrile and currently with no other clinical focus of infection with a negative UA and chest x-ray and abdominal wound looks clean possible metabolic etiology for mental status changes (1) Infection due to Stenotrophomonas maltophilia Current Visit: Yes Status: Acute Code(s): A49.8 - OTHER BACTERIAL INFECTIONS OF UNSPECIFIED SITE SNOMED Code(s): 54608089 (2) VRE (vancomycin-resistant Enterococci) infection Current Visit: Yes Status: Acute Code(s): A49.1 - STREPTOCOCCAL INFECTION, UNSPECIFIED SITE; Z16.21 - RESISTANCE TO VANCOMYCIN SNOMED Code(s): 255360717 (3) Infected hernioplasty mesh Current Visit: No Status: Acute Code(s): T85.79XA - INFECT/INFLM REACTION DUE TO OTH INT PROSTH DEV/GRFT, INIT SNOMED Code(s): 413885276 Plan: 1-the patient be continued on Fortaz 2 g every 8 hours and daptomycin 2-local wound care with a wound VAC black foam continues pressure 125 mmHg to be changed Monday We will follow on clinical condition and cultures to further adjust medication if needed Thank you for this consultation will follow this patient with you
[2019-04-02] MEDS: NYSTATIN 100,000UNIT/GM CREAM 30 GM TUBE TOPICAL SCH ×2 (08:22→21:01)
[2019-04-02] MEDS: AMIODARONE 100 MG TAB PO SCH (08:22)
[2019-04-02] MEDS: predniSONE 10 MG TAB PO SCH (08:22)
[2019-04-02] MEDS: LACTOBACILLUS ACIDOPH & BULGAR 1 EACH PACKET PO SCH ×2 (08:22→16:19)
[2019-04-02] MEDS: METOPROLOL TARTRATE 50 MG TAB PO SCH ×2 (08:22→16:19)
[2019-04-02] MEDS: metFORMIN 500 MG TAB PO SCH ×2 (08:22→16:19)
[2019-04-02] MEDS: CILOSTAZOL 100 MG TAB PO SCH (08:22)
[2019-04-02] MEDS: LOSARTAN 50 MG TAB PO SCH (08:22)
[2019-04-02] MEDS: FUROSEMIDE 40 MG TAB PO SCH ×2 (08:22→16:19)
[2019-04-02] MEDS: POTASSIUM CHLORIDE ER 20 MEQ TAB.ER PO SCH (08:23)
[2019-04-02] MEDS: oxyCODONE ER 15 MG TAB.ER.12H PO SCH ×2 (08:23→21:00)
--- NOTE | 2019-04-02 12:37 | P.DS ---
Providers Date of admission: 04/01/19 11:54 Expected date of discharge: 04/02/19 Attending physician: Parveen Dietz Consults: 03/30/19 11:02 Consult Physician Routine Consulting Provider: Christopher Montoya Consult Reason/Comments: abd infection Do you want consulting provider notified?: Yes Consult Physician Routine Consulting Provider: Comfort Costa Consult Reason/Comments: abd infection Do you want consulting provider notified?: Yes Primary care physician: Diaz Bronson [facility] Course: Chief Complaint: Lethargic History of presenting complaint: This is a pleasant 73-year-old patient of Dr. Alcala. Chronic stable medical conditions include atrial fibrillation, coronary artery disease, diabetes, hyperlipidemia, hypertension, Randy arthritis, hypothyroid, peripheral arterial disease. December 2017 had a "coronary bypass, complicated by ischemic bowel resulting in the ostomy and a wound VAC. Patient subsequently had intra- abdominal abscess and required protracted course of antibiotics. Back in March 2018 had an abscess and patient did have a MASTER drain in place for the same. And December 2018 patient had the incisional hernia with mesh placed. By Dr. Montoya. Patient did undergo admission for significant drainage that MASTER drain. Patient yet again admitted on March 03 and discharged on March 13 and during that admission infected mesh was removed. Patient had a wound VAC Was placed. Patient was discharged on March 13 with 2 week course of IV daptomycin, IV Invanz, and Bactrim. Wound cultures had grown S maltophilia, VRE, staph epidermidis. Patient yesterday presented to the ER with some altered mental status. When the EMS and arrived patient is back to herself. Does no fever no tachycardia and no hypertension. No abdominal pain. Patient is a very slight elevation of white count. Decided to send the patient back to the [facility] and to follow clinically. Patient returned as she again became more confused and was admitted. Patient did rather tired. Unable to give much of her history. Does no fever no tachycardia no hypertension yet again. Consultation was made to Dr. Montoya and Dr. Costa from [place] to to whom the patient is well known. is the bedside. Computed tomography scan of the ER was negative. Patient was felt to be in metabolic encephalopathy from her pain medications.zully sandoval's OxyContin was discontinued. Patient did wake up the following day. Patient was resumed OxyContin on a reduced dose.Patient was feeling well. May need some debridement . Discussed with Dr. Montoya team today and Dr. Costa from [place]. Patient will follow-up with Dr. costa [facility] for wound to be cleaned up. Discussed with the patient. Questions were answered. Also discussed with julissa today. 1 more week of antibiotics. Discussion and discharge planning more than 35 minutes Today-patient feeling well. Pain control. Tolerating a diet. Consultation: Dr. Montoya from general surgery Dr. costa from [place] Physical examination: VITAL SIGNS: 97.8, 77, 18, 142/78, 97% room air GENERAL: Propped up,, comfortable EYES: Pupils equal. Conjunctiva pale HEENT: External appearance of nose and ears normal, oral cavity dry NECK: JVD unable to assess; masses not palpable. HEART: First and second heart sounds are normal; some edema. LUNGS: Respiratory rate normal; decreased breath sounds. ABDOMEN: Soft, nontender, liver spleen not palpable, wound VAC in place. PSYCH: AAO 3, motor affect normal INVESTIGATIONS, reviewed in the clinical context: White count 11.1 hemoglobin 8.9 platelets 624 creatinine 0.69 Previous testing White count 15.3 hemoglobin 9.7 platelets 711 potassium 3.8 crit 0.69 Recent wound cultures from the last admission - S maltophilia, VRE, staph epidermidis Assessment: -This is a patient with multiple episodes of intra-abdominal abscess who recently had a abdominal infected mesh removed recently, by Dr. Montoya. Cultures did grow multiple organisms including S maltophilia, VRE, staph epidermidis. Patient was discharged on antibiotics with broad coverage . Has a wound VAC in place. -Altered mental status, metabolic encephalopathy. improved after cutting back the dose of OxyContin, POA -Coronary artery disease per prior history of bypass -Paroxysmal atrial fibrillation -Peripheral artery disease -Hypothyroid -Diabetes mellitus type 2 on oral hypoglycemic -Lumbar osteoarthritis -Hyperlipidemia -Essential hypertension -History of bowel perforation recurrent intra-abdominal abscess -Obesity BMI 32.8 Disposition: [facility] Labs: CBC CMP 3 days Patient Condition at Discharge: Undetermined Plan - Discharge Summary Discharge Rx Participant: No New Discharge Prescriptions: New oxyCODONE ER [OxyCONTIN] 15 mg PO Q12HR #6 tab.er.12h Continue Ergocalciferol (Vitamin D2) [Vitamin D2] 50,000 unit PO COHEN DULoxetine HCL [Cymbalta] 60 mg PO HS@2100 Furosemide [Lasix] 40 mg PO BID@0800,1700 Latanoprost/Pf [Latanoprost 0.005% Eye Drop] 1 drop BOTH EYES HS@2100 Amiodarone [Cordarone] 100 mg PO DAILY@0800 Metoprolol Tartrate [Lopressor] 50 mg PO BID@0800,1700 Cilostazol [Pletal] 100 mg PO DAILY@0800 metFORMIN HCL [Glucophage] 500 mg PO BID@0800,1700 Magnesium Hydroxide [Milk of Magnesia] 2,400 mg PO DAILY PRN PRN Reason: Constipation L.acidoph,Paracasei, B.lactis [Probiotic] 1 cap PO BID@0800,1700 Na Phos,M-B/Na Phos,Di-Ba [Fleet Adult] 133 ml RECTAL DAILY PRN PRN Reason: Constipation Ensure Clear 1 can PO BID@0800,1700 predniSONE 10 mg PO DAILY@0800 Levothyroxine Sodium [Synthroid] 88 mcg PO DAILY@0600 Losartan [Cozaar] 50 mg PO DAILY@0800 tab Atorvastatin [Lipitor] 40 mg PO HS@2100 tab Loperamide [Imodium] 2 mg PO BID@0800,1700 PRN #0 PRN Reason: Diarrhea Potassium Chloride ER [K-Dur 20] 20 meq PO DAILY #0 INSULIN ASPART (NovoLOG) [NovoLOG (formulary)] See Protocol SQ ACHS Nystatin 100,000Unit/gm Cream [Mycostatin Cream] 1 applic TOPICAL BID@0800,2100 Ferrous Sulfate [Iron (65 MG Elemental)] 325 mg PO DAILY@1700 Ondansetron HCl [Zofran] 8 mg PO Q12H PRN PRN Reason: Nausea DAPTOmycin [Cubicin] 500 mg IV DAILY@2129 #7 Ertapenem [INVanz] 1 gm IVPB Q24H #7 bag Discontinued oxyCODONE ER [OxyCONTIN] 20 mg PO BID@0800,2100 #6 tab Discharge Medication List DULoxetine HCL [Cymbalta] 60 mg PO HS@2100 12/14/16 [History] Ergocalciferol (Vitamin D2) [Vitamin D2] 50,000 unit PO COHEN 12/14/16 [History] Amiodarone [Cordarone] 100 mg PO DAILY@0800 03/02/18 [History] Furosemide [Lasix] 40 mg PO BID@0800,1700 03/02/18 [History] Latanoprost/Pf [Latanoprost 0.005% Eye Drop] 1 drop BOTH EYES HS@2100 03/02/18 [History] Cilostazol [Pletal] 100 mg PO DAILY@0800 11/15/18 [History] Metoprolol Tartrate [Lopressor] 50 mg PO BID@0800,1700 11/15/18 [History] metFORMIN HCL [Glucophage] 500 mg PO BID@0800,1700 11/15/18 [History] Ensure Clear 1 can PO BID@0800,1700 03/05/19 [History] L.acidoph,Paracasei, B.lactis [Probiotic] 1 cap PO BID@0800,1700 03/05/19 [History] Levothyroxine Sodium [Synthroid] 88 mcg PO DAILY@0600 03/05/19 [History] Magnesium Hydroxide [Milk of Magnesia] 2,400 mg PO DAILY PRN 03/05/19 [History] Na Phos,M-B/Na Phos,Di-Ba [Fleet Adult] 133 ml RECTAL DAILY PRN 03/05/19 [History] predniSONE 10 mg PO DAILY@0800 03/05/19 [History] Atorvastatin [Lipitor] 40 mg PO HS@2100 tab 03/13/19 [Rx] Loperamide [Imodium] 2 mg PO BID@0800,1700 PRN #0 03/13/19 [Rx] Losartan [Cozaar] 50 mg PO DAILY@0800 tab 03/13/19 [Rx] Potassium Chloride ER [K-Dur 20] 20 meq PO DAILY #0 03/13/19 [Rx] Ferrous Sulfate [Iron (65 MG Elemental)] 325 mg PO DAILY@1700 03/30/19 [History] INSULIN ASPART (NovoLOG) [NovoLOG (formulary)] See Protocol SQ ACHS 03/30/19 [History] Nystatin 100,000Unit/gm Cream [Mycostatin Cream] 1 applic TOPICAL BID@0800,2100 03/30/19 [History] Ondansetron HCl [Zofran] 8 mg PO Q12H PRN 03/30/19 [History] DAPTOmycin [Cubicin] 500 mg IV DAILY@2130 #7 04/02/19 [Rx] Ertapenem [INVanz] 1 gm IVPB Q24H #7 bag 04/02/19 [Rx] oxyCODONE ER [OxyCONTIN] 15 mg PO Q12HR #6 tab.er.12h 04/02/19 [Rx] Follow up Appointment(s)/Referral(s): Diaz Alcala DO [Primary Care Provider] - 1 Week Comfort Costa MD [STAFF PHYSICIAN] - 1 Week Christopher Montoya MD [STAFF PHYSICIAN] - 1 Week Patient Instructions/Handouts: Altered Mental Status (ED) Activity/Diet/Wound Care/Special Instructions: Follow-up with the wound care center with Dr. Mari costa. Wound VAC per Dr. Montoya
[2019-04-02 12:47] VITALS: TEMP 98
--- NOTE | 2019-04-02 15:05 | PN ---
PROGRESS NOTE DATE OF SERVICE: 04/02/2019 REASON FOR FOLLOW UP: Infected abdominal mesh and abdominal wound. INTERVAL HISTORY: The patient is currently afebrile. Patient is breathing comfortably. Patient denies having any chest pain. No cough. No nausea. No abdominal pain. No diarrhea, no urinary symptoms. PHYSICAL EXAMINATION: Blood pressure 141/71 with a pulse of 80, temperature 98, she is 97% on room air. General description is an elderly female, lying in bed in no distress. RESPIRATORY SYSTEM: Unlabored breathing, clear to auscultation anteriorly. HEART: S1, S2. Regular rate and rhythm. ABDOMEN: Tenderness, wound is current covered with a wound VAC. LABS: No new labs have been obtained today. Blood culture has been negative. DIAGNOSTIC IMPRESSION AND PLAN: Patient with a history of infected abdominal mesh with removal of the mesh. The patient with positive multiple pathogen to continue with Invanz with daptomycin for another week. Local wound care with the wound VAC and follow up in the [facility] next week for continued local wound care. Discussed in detail with the admitting physician. MMODL / IJN: [id number] /
[2019-04-02] MEDS: FERROUS SULFATE 325 MG TAB PO SCH (16:19)
[2019-04-02] MEDS: DULoxetine HCL 60 MG CAPSULE.DR PO SCH (21:00)
[2019-04-02] MEDS: LATANOPROST 0.005% OPHTH DROPS 2.5 ML BTL BOTH EYES SCH (21:01)
[2019-04-02] MEDS: DAPTOmycin 500 MG in SODIUM CHLORIDE 0.9% 50 ML IVPB SCH (21:01)
[2019-04-03 06:08] VITALS: BP 124/76; PULSE 70; RESP 17
[2019-04-03] MEDS: LEVOTHYROXINE 88 MCG TAB PO SCH (06:20)
[2019-04-03] MEDS: FUROSEMIDE 40 MG TAB PO SCH (07:56)
[2019-04-03] MEDS: METOPROLOL TARTRATE 50 MG TAB PO SCH (07:56)
[2019-04-03] MEDS: LOSARTAN 50 MG TAB PO SCH (07:56)
[2019-04-03] MEDS: AMIODARONE 100 MG TAB PO SCH (07:56)
[2019-04-03] MEDS: LACTOBACILLUS ACIDOPH & BULGAR 1 EACH PACKET PO SCH (07:56)
[2019-04-03] MEDS: metFORMIN 500 MG TAB PO SCH (07:56)
[2019-04-03] MEDS: CILOSTAZOL 100 MG TAB PO SCH (07:56)
[2019-04-03] MEDS: POTASSIUM CHLORIDE ER 20 MEQ TAB.ER PO SCH (07:57)
[2019-04-03] MEDS: oxyCODONE ER 15 MG TAB.ER.12H PO SCH (07:57)
[2019-04-03] MEDS: predniSONE 10 MG TAB PO SCH (07:57)
[2019-04-03] MEDS: LACTATED RINGERS 1,000 ML IV SCH (10:27)
[2019-04-03] MEDS: NYSTATIN 100,000UNIT/GM CREAM 30 GM TUBE TOPICAL SCH (10:28)
== END 2019-04-03 11:03 | DRG 919 ==
LOC: EC 01:34 → 3NMEDONC 02:53 → OBSVTOIN 04-01 11:54
PROVIDERS: ADMIT Hospitalist; ATTEND Hospitalist
DX: T85.79XA Infection and inflammatory reaction due to other internal prosthetic devices, implants and grafts, initial encounter (principal); G92 Toxic encephalopathy; Z16.21 Resistance to vancomycin; Y83.2 Surgical operation with anastomosis, bypass or graft as the cause of abnormal reaction of the patient, or of later complication, without mention of misadventure at the time of the procedure; B95.2 Enterococcus as the cause of diseases classified elsewhere; E03.9 Hypothyroidism, unspecified; E11.51 Type 2 diabetes mellitus with diabetic peripheral angiopathy without gangrene; E78.5 Hyperlipidemia, unspecified; F17.210 Nicotine dependence, cigarettes, uncomplicated; F32.9 Major depressive disorder, single episode, unspecified; F41.9 Anxiety disorder, unspecified; I10 Essential (primary) hypertension; I25.10 Atherosclerotic heart disease of native coronary artery without angina pectoris; I48.0 Paroxysmal atrial fibrillation; M19.90 Unspecified osteoarthritis, unspecified site; M47.816 Spondylosis without myelopathy or radiculopathy, lumbar region; Z79.02 Long term (current) use of antithrombotics/antiplatelets; Z79.890 Hormone replacement therapy; Z79.899 Other long term (current) drug therapy; Z80.49 Family history of malignant neoplasm of other genital organs; Z82.49 Family history of ischemic heart disease and other diseases of the circulatory system; Z95.1 Presence of aortocoronary bypass graft; Z96.653 Presence of artificial knee joint, bilateral; Z79.4 Long term (current) use of insulin; T40.2X5A Adverse effect of other opioids, initial encounter; Z90.49 Acquired absence of other specified parts of digestive tract; Z88.5 Allergy status to narcotic agent
CPT/HCPCS: 36415; 51701; 71045; 80053; 81003; 82140; 82550; 82803; 83605; 85025; 85027; 87040; 87324; 93005; 95816; 99285

== ENCOUNTER 2019-04-17 12:52 | Inpatient (IN) | payer MEDICARE ==
[2019-04-17] MEDS ORDERED: SODIUM CHLORIDE 0.9% 1,000 ML IV STA (14:04)
[2019-04-17 14:33] LABS: Anisocytosis Slight; Basophils # (A) 0.1 k/uL (0-0.2); Basophils % (A) 1 %; Eosinophils # (A) 0.2 k/uL (0-0.7); Eosinophils % (A) 1 %; HCT 34.2 % (34.0-46.0); Hypochromasia Moderate; Lymphocytes # (A) 0.9 k/uL (1.0-4.8); Lymphocytes % (A) 4 %; MCH 25.2 pg (25.0-35.0); MCV 78.8 fL (80.0-100.0); Mean Platelet Volume 7.1; Microcytosis Slight; Monocytes % (A) 4 %; Neutrophils # (A) 22.3 k/uL (1.3-7.7); Neutrophils % (A) 90 %; Platelet Count 671 k/uL (150-450); Poikilocytosis Slight; RBC 4.35 m/uL (3.80-5.40); RDW 16.8 % (11.5-15.5); WBC 24.6 k/uL (3.8-10.6)
[2019-04-17 14:45] LABS: ALT 22 U/L (4-34); AST 33 U/L (14-36); African American GFR (CKD) >90 (>60 ml/min/1.73 sqM); Albumin 3.7 g/dL (3.5-5.0); Alkaline Phosphatase 199 U/L (38-126); Anion Gap 12 mmol/L; Blood Urea Nitrogen 13 mg/dL (7-17); Calcium 9.3 mg/dL (8.4-10.2); Carbon Dioxide 28 mmol/L (22-30); Chloride 94 mmol/L (98-107); Glucose 171 mg/dL (74-99); Magnesium 1.1 mg/dL (1.6-2.3); Non-African American GFR(CKD) 80 (>60 ml/min/1.73 sqM); Phosphorus 3.6 mg/dL (2.5-4.5); Potassium 3.2 mmol/L (3.5-5.1); Sodium 134 mmol/L (137-145); Total Bilirubin 0.9 mg/dL (0.2-1.3); Total Protein 6.4 g/dL (6.3-8.2)
--- NOTE | 2019-04-17 14:45 | ED ---
Weakness HPI - General Source: patient, RN notes reviewed, old records reviewed Mode of arrival: ambulatory Limitations: no limitations <Yeni Shoemaker - Last Filed: 04/17/19 18:18> <Derek Valdivia - Last Filed: 04/17/19 19:02> - General Chief complaint: Weakness Stated complaint: Vomiting Time Seen by Provider: 04/17/19 13:46 - History of Present Illness Initial comments: This patient's a 74-year-old female, she presents today for evaluation for concern for generalized weakness, vomiting episodes, complaints of right upper abdominal pain. She has extensive history of anterior abdominal hernia repair with complications and wound has been treated for infection. Patient reports that she finished IV antibiotics 2 days ago. Patient states that she has been having no further fevers according to her at-home thermometer. Patient reports that she follow up with wound care clinic today and started vomiting. She states that Dr. Broderick sent her to the ER for further evaluation. She reports that her white blood cell, started to be elevated two days ago. (Yeni Shoemaker) - Related Data Home Medications Medication Instructions Recorded Confirmed DULoxetine HCL [Cymbalta] 60 mg PO HS@2100 12/14/16 04/17/19 Ergocalciferol (Vitamin D2) 50,000 unit PO COHEN@1700 12/14/16 04/17/19 [Vitamin D2] Amiodarone [Cordarone] 100 mg PO DAILY@0800 03/02/18 04/17/19 Furosemide [Lasix] 40 mg PO BID@0600,1400 03/02/18 04/17/19 Latanoprost/Pf [Latanoprost 0.005% 1 drop BOTH EYES HS@2100 03/02/18 04/17/19 Eye Drop] Cilostazol [Pletal] 100 mg PO DAILY@0800 11/15/18 04/17/19 Metoprolol Tartrate [Lopressor] 50 mg PO BID@0800,1700 11/15/18 04/17/19 metFORMIN HCL [Glucophage] 500 mg PO BID@0800,1700 11/15/18 04/17/19 Ensure Clear 237 ml PO BID@0800,1700 03/05/19 04/17/19 L.acidoph,Paracasei, B.lactis 1 cap PO BID@0800,1700 03/05/19 04/17/19 [Probiotic] Levothyroxine Sodium [Synthroid] 88 mcg PO DAILY@0600 03/05/19 04/17/19 Na Phos,M-B/Na Phos,Di-Ba [Fleet 133 ml RECTAL DAILY PRN 03/05/19 04/17/19 Adult] predniSONE 10 mg PO DAILY@0800 03/05/19 04/17/19 Ferrous Sulfate [Iron (65 MG 325 mg PO DAILY@1700 03/30/19 04/17/19 Elemental)] INSULIN ASPART (NovoLOG) [NovoLOG See Protocol SQ ACHS 03/30/19 04/17/19 (formulary)] Nystatin 100,000Unit/gm Cream 1 applic TOPICAL BID@0800,2100 03/30/19 04/17/19 [Mycostatin Cream] Ondansetron HCl [Zofran] 8 mg PO Q12H PRN 03/30/19 04/17/19 Bisacodyl [Dulcolax] 10 mg RECTAL DAILY PRN 04/17/19 04/17/19 Loperamide [Imodium] 2 mg PO BID PRN 04/17/19 04/17/19 Magic Cup 1 dose PO DAILY@1500 04/17/19 04/17/19 Magnesium Hydroxide [Milk of 7,200 mg PO DAILY PRN 04/17/19 04/17/19 Magnesia Concentrate] Potassium Chloride ER [K-Dur 20] 20 meq PO DAILY@1700 04/17/19 04/17/19 oxyCODONE ER [OxyCONTIN] 15 mg PO Q12H 04/17/19 04/17/19 Previous Rx's Medication Instructions Recorded Atorvastatin [Lipitor] 40 mg PO HS@2100 tab 03/13/19 Losartan [Cozaar] 50 mg PO DAILY@0800 tab 03/13/19 Allergies Allergy/AdvReac Type Severity Reaction Status Date / Time morphine Allergy Intermediate Itching Verified 04/17/19 18:19 Review of Systems ROS Other: All systems not noted in ROS Statement are negative. <Yeni Shoemaker - Last Filed: 04/17/19 18:18> ROS Other: All systems not noted in ROS Statement are negative. <Derek Valdivia - Last Filed: 04/17/19 19:02> ROS Statement: Those systems with pertinent positive or pertinent negative responses have been documented in the HPI. Past Medical History Past Medical History: Atrial Fibrillation, Coronary Artery Disease (CAD), Diabetes Mellitus, Hyperlipidemia, Hypertension, Memory Impairment, Osteoarthritis (OA), Thyroid Disorder, Vascular Disorder Additional Past Medical History / Comment(s): 01/18/19 incisional hernia repair- open with mesh and has drain, paroxysmal Afib, NIDDM type II, PAD, decreased circulation to R lower extremity-pt states had several unsuccessful attempts at placing artificial artery, bowel surgery d/t blood clot to colon post operatively, frequent diarrhea, urinary incontinence, chronic elevated WBC, chronic low back pain/pinched nerve, bilateral shoulder pain-DJD, "forgetful", hypothyroid, vertigo at times. History of Any Multi-Drug Resistant Organisms: ESBL, VRE Date of last positivie culture/infection: 03/06/19 VRE; 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 Source:: Abdomen-VRE; Body Fluid Aspirate-ESBL Past Surgical History: Appendectomy, Bowel Resection, Breast Surgery, Cholecystectomy, Coronary Bypass/CABG, Heart Catheterization, Hernia Repair, Joint Replacement, Orthopedic Surgery Additional Past Surgical History / Comment(s): 01/18/19 incisional hernia repair- open with mesh, 12/11/17 CABG 4 vessel, 12/20/17 colectomy/ileostomy with reversal, R leg attempted bypasses with artificial artery which pt states were unsuccessful, L breast benign tumor removed, bilateral total knee arthroplasties, R rotator cuff repair, low back epidural injections, piccs-since removed. Past Anesthesia/Blood Transfusion Reactions: No Reported Reaction Additional Past Anesthesia/Blood Transfusion Reaction / Comment(s): Pt has recently received blood and also years ago received blood without reaction. Past Psychological History: Anxiety, Depression Smoking Status: Former smoker Past Alcohol Use History: None Reported Past Drug Use History: None Reported - Past Family History Mother Family Medical History: Cancer Additional Family Medical History / Comment(s): Uterine cancer. Father Family Medical History: Congestive Heart Failure (CHF) <Yeni Shoemaker - Last Filed: 04/17/19 18:18> General Exam Limitations: no limitations General appearance: alert, in no apparent distress Head exam: Present: atraumatic, normocephalic, normal inspection Eye exam: Present: normal appearance, PERRL, EOMI. Absent: scleral icterus, conjunctival injection, periorbital swelling ENT exam: Present: normal exam, mucous membranes moist Neck exam: Present: normal inspection. Absent: tenderness, meningismus, lymphadenopathy Respiratory exam: Present: normal lung sounds bilaterally. Absent: respiratory distress, wheezes, rales, rhonchi, stridor Cardiovascular Exam: Present: regular rate, normal rhythm, normal heart sounds. Absent: systolic murmur, diastolic murmur, rubs, gallop, clicks GI/Abdominal exam: Present: soft, tenderness ( minimal right upper quadrant tenderness. Patient has large intra-abdominal wound. No surrounding cellulitis. It is packed with gauze at this time, no drainage. The wound site actually appears better according to Patient from previous.), normal bowel sounds. Absent: distended, guarding, rebound, rigid Extremities exam: Present: normal inspection, full ROM, normal capillary refill. Absent: tenderness, pedal edema, joint swelling, calf tenderness Back exam: Present: normal inspection Neurological exam: Present: alert, oriented X3, CN II-XII intact Psychiatric exam: Present: normal affect, normal mood Skin exam: Present: warm <Yeni Shoemaker - Last Filed: 04/17/19 18:18> - General Exam Comments Initial Comments: 74-year-old female. Alert and oriented 3. No significant distress. (Yeni Shoemaker) Course <Derek Valdivia - Last Filed: 04/17/19 19:02> Vital Signs 04/17/19 04/17/19 12:58 17:30 Temperature 97.8 F Pulse Rate 75 86 Respiratory 19 18 Rate Blood Pressure 113/81 110/70 O2 Sat by Pulse 100 97 Oximetry - Reevaluation(s) Reevaluation #1: 04/17/19 19:01 Patient evaluation this case and I did evaluate and review the findings and evaluate the workup as well as review old charting. Case is discussed with Dr. Dietz. Patient be admitted. I do agree with the assessment and plan (Derek Valdivia) Medical Decision Making - Lab Data Result diagrams: 04/17/19 14:15 04/17/19 14:15 - Radiology Data Radiology results: report reviewed <Yeni Shoemaker - Last Filed: 04/17/19 18:18> - Lab Data Result diagrams: 04/17/19 14:15 04/17/19 14:15 <Derek Valdivia - Last Filed: 04/17/19 19:02> - Medical Decision Making [id number] female presents today for evaluation for running fatigue, some right-sided abdominal pain. Patient states has been off of antibiotics for a large wound on her anterior abdomen after her hernia repair and wound he has since. She's been off of antibiotics for the past 2 days. At this time patient's does have worsening leukocytosis of 24,000 and increased from 2 days at which her was 17. Positive lactic acid. Patient was given a fluid bolus, started on Zosyn and vancomycin this time is initial concern was related to infection from her abdominal site. But this does appear to be improving and she has no significant drainage or cellulitis at this time. Patient was able to provide a urine sample showing and this is positive for infection. Urine culture will be completed. I discussed the case with Dr. Valdivia. And recommended discussed the case with Dr. andersen. He was visited times I discussed the case with Dr. Vanegas. And he is agreeable to admit the Patient this time for IV antibiotics and consults to Dr. Montoya patient's surgeon for wound care as well as Dr. Edmonds for wound care. (Yeni Shoemaker) - Lab Data Lab Results 04/17/19 04/17/19 04/17/19 Range/Units 14:15 14:15 14:15 WBC 24.6 H (3.8-10.6) k/uL RBC 4.35 (3.80-5.40) m/uL Hgb 11.0 L (11.4-16.0) gm/dL Hct 34.2 (34.0-46.0) % MCV 78.8 L (80.0-100.0) fL MCH 25.2 (25.0-35.0) pg MCHC 32.0 (31.0-37.0) g/dL RDW 16.8 H (11.5-15.5) % Plt Count 671 H (150-450) k/uL Neutrophils % 90 % Lymphocytes % 4 % Monocytes % 4 % Eosinophils % 1 % Basophils % 1 % Neutrophils # 22.3 H (1.3-7.7) k/uL Lymphocytes # 0.9 L (1.0-4.8) k/uL Monocytes # 1.0 (0-1.0) k/uL Eosinophils # 0.2 (0-0.7) k/uL Basophils # 0.1 (0-0.2) k/uL Hypochromasia Moderate Poikilocytosis Slight Anisocytosis Slight Microcytosis Slight PT (9.0-12.0) sec INR (<1.2) APTT (22.0-30.0) sec Sodium 134 L (137-145) mmol/L Potassium 3.2 L (3.5-5.1) mmol/L Chloride 94 L (98-107) mmol/L Carbon Dioxide 28 (22-30) mmol/L Anion Gap 12 mmol/L BUN 13 (7-17) mg/dL Creatinine 0.75 (0.52-1.04) mg/dL Est GFR (CKD-EPI)AfAm >90 (>60 ml/min/1.73 sqM) Est GFR (CKD-EPI)NonAf 80 (>60 ml/min/1.73 sqM) Glucose 171 H (74-99) mg/dL Lactic Ac Sepsis Rflx Plasma Lactic Acid [place] 3.5 H* (0.7-2.0) mmol/L Calcium 9.3 (8.4-10.2) mg/dL Phosphorus 3.6 (2.5-4.5) mg/dL Magnesium 1.1 L (1.6-2.3) mg/dL Total Bilirubin 0.9 (0.2-1.3) mg/dL AST 33 (14-36) U/L ALT 22 (4-34) U/L Alkaline Phosphatase 199 H (38-126) U/L Troponin I (0.000-0.034) ng/mL Total Protein 6.4 (6.3-8.2) g/dL Albumin 3.7 (3.5-5.0) g/dL Urine Color Urine Appearance (Clear) Urine pH (5.0-8.0) Ur Specific [place] (1.001-1.035) Urine Protein (Negative) Urine Glucose (UA) (Negative) Urine Ketones (Negative) Urine Blood (Negative) Urine Nitrite (Negative) Urine Bilirubin (Negative) Urine Urobilinogen (<2.0) mg/dL Ur Leukocyte Esterase (Negative) Urine RBC (0-5) /hpf Urine WBC (0-5) /hpf Urine Bacteria (None) /hpf Urine Mucus (None) /hpf 04/17/19 04/17/19 04/17/19 Range/Units 14:15 14:15 14:54 WBC (3.8-10.6) k/uL RBC (3.80-5.40) m/uL Hgb (11.4-16.0) gm/dL Hct (34.0-46.0) % MCV (80.0-100.0) fL MCH (25.0-35.0) pg MCHC (31.0-37.0) g/dL RDW (11.5-15.5) % Plt Count (150-450) k/uL Neutrophils % % Lymphocytes % % Monocytes % % Eosinophils % % Basophils % % Neutrophils # (1.3-7.7) k/uL Lymphocytes # (1.0-4.8) k/uL Monocytes # (0-1.0) k/uL Eosinophils # (0-0.7) k/uL Basophils # (0-0.2) k/uL Hypochromasia Poikilocytosis Anisocytosis Microcytosis PT 9.5 (9.0-12.0) sec INR 0.9 (<1.2) APTT 22.0 (22.0-30.0) sec Sodium (137-145) mmol/L Potassium (3.5-5.1) mmol/L Chloride (98-107) mmol/L Carbon Dioxide (22-30) mmol/L Anion Gap mmol/L BUN (7-17) mg/dL Creatinine (0.52-1.04) mg/dL Est GFR (CKD-EPI)AfAm (>60 ml/min/1.73 sqM) Est GFR (CKD-EPI)NonAf (>60 ml/min/1.73 sqM) Glucose (74-99) mg/dL Lactic Ac Sepsis Rflx Y Plasma Lactic Acid [place] (0.7-2.0) mmol/L Calcium (8.4-10.2) mg/dL Phosphorus (2.5-4.5) mg/dL Magnesium (1.6-2.3) mg/dL Total Bilirubin (0.2-1.3) mg/dL AST (14-36) U/L ALT (4-34) U/L Alkaline Phosphatase (38-126) U/L Troponin I 0.014 (0.000-0.034) ng/mL Total Protein (6.3-8.2) g/dL Albumin (3.5-5.0) g/dL Urine Color Urine Appearance (Clear) Urine pH (5.0-8.0) Ur Specific [place] (1.001-1.035) Urine Protein (Negative) Urine Glucose (UA) (Negative) Urine Ketones (Negative) Urine Blood (Negative) Urine Nitrite (Negative) Urine Bilirubin (Negative) Urine Urobilinogen (<2.0) mg/dL Ur Leukocyte Esterase (Negative) Urine RBC (0-5) /hpf Urine WBC (0-5) /hpf Urine Bacteria (None) /hpf Urine Mucus (None) /hpf 04/17/19 Range/Units 17:30 WBC (3.8-10.6) k/uL RBC (3.80-5.40) m/uL Hgb (11.4-16.0) gm/dL Hct (34.0-46.0) % MCV (80.0-100.0) fL MCH (25.0-35.0) pg MCHC (31.0-37.0) g/dL RDW (11.5-15.5) % Plt Count (150-450) k/uL Neutrophils % % Lymphocytes % % Monocytes % % Eosinophils % % Basophils % % Neutrophils # (1.3-7.7) k/uL Lymphocytes # (1.0-4.8) k/uL Monocytes # (0-1.0) k/uL Eosinophils # (0-0.7) k/uL Basophils # (0-0.2) k/uL Hypochromasia Poikilocytosis Anisocytosis Microcytosis PT (9.0-12.0) sec INR (<1.2) APTT (22.0-30.0) sec Sodium (137-145) mmol/L Potassium (3.5-5.1) mmol/L Chloride (98-107) mmol/L Carbon Dioxide (22-30) mmol/L Anion Gap mmol/L BUN (7-17) mg/dL Creatinine (0.52-1.04) mg/dL Est GFR (CKD-EPI)AfAm (>60 ml/min/1.73 sqM) Est GFR (CKD-EPI)NonAf (>60 ml/min/1.73 sqM) Glucose (74-99) mg/dL Lactic Ac Sepsis Rflx Plasma Lactic Acid [place] (0.7-2.0) mmol/L Calcium (8.4-10.2) mg/dL Phosphorus (2.5-4.5) mg/dL Magnesium (1.6-2.3) mg/dL Total Bilirubin (0.2-1.3) mg/dL AST (14-36) U/L ALT (4-34) U/L Alkaline Phosphatase (38-126) U/L Troponin I (0.000-0.034) ng/mL Total Protein (6.3-8.2) g/dL Albumin (3.5-5.0) g/dL Urine Color Yellow Urine Appearance Cloudy H (Clear) Urine pH 6.5 (5.0-8.0) Ur Specific [place] 1.050 H (1.001-1.035) Urine Protein Trace H (Negative) Urine Glucose (UA) Negative (Negative) Urine Ketones Negative (Negative) Urine Blood Moderate H (Negative) Urine Nitrite Positive H (Negative) Urine Bilirubin Negative (Negative) Urine Urobilinogen <2.0 (<2.0) mg/dL Ur Leukocyte Esterase Large H (Negative) Urine RBC 15 H (0-5) /hpf Urine WBC >182 H (0-5) /hpf Urine Bacteria Occasional H (None) /hpf Urine Mucus Many H (None) /hpf 04/17/19 17:02 EKG shows normal sinus rhythm, left ventricular hypertrophy repolarization unrelated prolonged QT. Retrograde of 80 bpm. Was 162 ms. QRS duration is 80 ms. QT QTc is 456/525 ms. (Yeni Shoemaker) - Radiology Data CT shows open anterior abdominal wound. Correlate for distal colonic fecal bruits. Mild fecal retention. Chest x-ray shows chronic changes without acute cardio vomiting process. (Yeni Shomeaker) Disposition Is patient prescribed a controlled substance at d/c from ED?: No Time of Disposition: 18:25 <Yeni Shoemaker - Last Filed: 04/17/19 18:18> <Derek Valdivia - Last Filed: 04/17/19 19:02> Clinical Impression: UTI (urinary tract infection), Sepsis, Surgical wound present Disposition: ADMITTED IP TO THIS HOSP Condition: Stable Referrals: Diaz Alcala DO [Primary Care Provider] - 1-2 days
[2019-04-17 14:51] LABS: INR 0.9 (<1.2); Prothrombin Time 9.5 sec (9.0-12.0)
--- NOTE | 2019-04-17 14:59 | XR ---
EXAMINATION TYPE: XR chest 2V DATE OF EXAM: 04/17/2019 COMPARISON: Chest x-ray March 30, 2019 HISTORY: Weakness and vomiting. TECHNIQUE: Frontal and lateral views of the chest are obtained. FINDINGS: Overlying sternal wires and mediastinal clips with closure device posterior superior aspec t are redemonstrated. There is chronic medical change without suspicious focal air space opacity, pleural effusion, or pneumothorax seen. The cardiac silhouette size remains within normal limits with ectatic thoracic aorta redemonstrated. Deformity right humeral head level redemonstrated. IMPRESSION: Chronic changes without acute pulmonary process.
--- NOTE | 2019-04-17 15:47 | CT ---
EXAMINATION TYPE: CT abdomen pelvis w con DATE OF EXAM: 04/17/2019 COMPARISON: 02/19/2019 INDICATION: right side abdominal pain DLP: 1387.9 mGycm, Automated exposure control for dose reduction was used. CONTRAST: 100 mL of Isovue 300. Study performed without Oral Contrast TECHNIQUE: Axial images were obtained from above the diaphragm to the pubic rami in the axial plane a t 5 mm thick sections. Reconstructed images are reviewed on the computer in the coronal plane. FINDINGS: Limited CT sections are obtained the lung bases. There is a small calcification along the posterior medial right lung base present previously. Minimal compressive atelectasis may be at the right lung b ase. CT ABDOMEN: Liver: Normal Spleen: Multiple calcified splenic granuloma are within the spleen. A splenule is inferior to the spl een. Pancreas: Atrophic Adrenal glands: The adrenal glands are normal. Gallbladder: Normal Kidneys: No masses are evident. No hydronephrosis is present. No cysts are present. Delayed images were obtained through the kidneys, which remain unremarkable. Aorta: Vascular calcification is within the aorta. Inferior vena cava: Normal. CT PELVIS: There is an open anterior abdominal wall wound extending towards the external peritoneal s urface. This is widely patent. Excellent Loops of bowel within the abdomen and pelvis are normal. Fecal debris is within the colon. There a re loops of bowel which are incompletely distended or lack oral contrast limiting their evaluation. Appendix: Not identified. Urinary bladder: Normal. Genitourinary structures: Uterus is unremarkable. Adnexal regions are clear. Osseous structures: No suspicious lytic or sclerotic lesions. Facet degenerative changes are within t he lumbar spine. There is an old rib fracture T11 on the right posterior old healed rib fracture at T 10 posteriorly is present. IMPRESSIONS: 1. Open anterior abdominal wound. 2. Distal colonic fecal debris. Correlate for mild fecal retention.
[2019-04-17] MEDS ORDERED: SODIUM CHLORIDE 0.9% 1,000 ML IV ONE (16:51)
[2019-04-17] MEDS ORDERED: PIPERACILLIN-TAZOBACTAM 3.375 GM in SODIUM CHLORIDE 0.9% 100 ML IVPB STA (16:51)
[2019-04-17] MEDS ORDERED: VANCOMYCIN IV PER PHARMACY 1 EACH MISC MISCELLANE PRN (16:53)
[2019-04-17] MEDS ORDERED: VANCOMYCIN 1,500 MG in SODIUM CHLORIDE 0.9% 250 ML IVPB ONE (17:30)
[2019-04-17 17:50] LABS: Appearance,Urine Cloudy (Clear); Bacteria,Urine Occasional /hpf; Bilirubin,Urine Negative (Negative); Blood,Urine Moderate (Negative); Color,Urine Yellow; Glucose,Urine (UA) Negative (Negative); Ketones,Urine Negative (Negative); Leukocyte Esterase,Urine Large (Negative); Mucus,Urine Many /hpf; Nitrite,Urine Positive (Negative); PH, Urine 6.5 (5.0-8.0); Protein,Urine Trace (Negative); RBC,Urine 15 /hpf (0-5); Urobilinogen,Urine <2.0 mg/dL (<2.0); WBC,Urine >182 /hpf (0-5)
[2019-04-17] MEDS ORDERED: NALOXONE 0.4 MG/ML 1 ML VIAL IV PRN (18:26)
[2019-04-17] MEDS ORDERED: IBUPROFEN 400 MG TAB PO PRN (18:26)
[2019-04-17] MEDS ORDERED: MORPHINE SULFATE 4 MG/ML SYRINGE IV PRN (18:26)
[2019-04-17] MEDS ORDERED: ACETAMINOPHEN TAB 325 MG TAB PO PRN (18:26)
[2019-04-17] MEDS ORDERED: BISACODYL 10 MG SUPP RECTAL PRN (18:33)
[2019-04-17] MEDS ORDERED: MAGNESIUM HYDROXIDE 2,400 MG/10 ML CUP PO PRN (18:33)
[2019-04-17] MEDS ORDERED: ONDANSETRON 4 MG TAB PO PRN (18:33)
[2019-04-17] MEDS ORDERED: NA PHOS,M-B/NA PHOS,DI-BA 133 ML ENEMA RECTAL PRN (18:33)
[2019-04-17] MEDS ORDERED: LOPERAMIDE 2 MG CAP PO PRN (18:33)
[2019-04-17] MEDS: SODIUM CHLORIDE 0.9% 1,000 ML IV SCH (19:10)
--- NOTE | 2019-04-17 21:39 | P.HPIM ---
History of Present Illness H&P Date: 04/17/19 Chief Complaint: Abdominal pain Chief Complaint: Abdominal pain History of presenting complaint: This is a pleasant 74-year-old patient of Dr. Alcala. Chronic stable medical conditions include atrial fibrillation, coronary artery disease, diabetes, hyperlipidemia, hypertension, osteoarthritis, hypothyroid, peripheral arterial disease. December 2017 had a "coronary bypass, complicated by ischemic bowel resulting in the ostomy and a wound VAC. Patient subsequently had intra- abdominal abscess and required protracted course of antibiotics. March 2018 had an abscess and patient did have a MASTER drain in place for the same. December 2018 patient had the incisional hernia with mesh placed. By Dr. Montoya. Patient did undergo admission for significant drainage from MASTER drain. admitted on March 03 and discharged on March 13 and during that admission infected mesh was removed. Patient had a wound VAC placed. Patient was disch arged on March 13 with 2 week course of IV daptomycin, IV Invanz, and Bactrim. Wound cultures had grown S maltophilia, VRE, staph epidermidis. Patient April 01 admitted with delirium. Because of OxyContin was cut back. Patient yesterday had a follow-up appointment with Dr. Montoya. Was doing fine. Her dressing has been placed over the abdominal wound. Wound VAC has been temporarily held off. Then patient started of with abdominal pain across the upper abdomen yesterday. Followed by several bouts of vomiting. Patient did see Dr. costa the office today. And decision was made to send out of the ER. Patient been having some urinary frequency for last 2 days. No dysuria. No obvious fever and chills. Prior to that patient's been tolerating a diet rather well. Has been using a walker and walking close to 60-70 feet. Review of systems: GEN.: Tired EYES: [None] HEENT: [None] NECK: [None] RESPIRATORY: [None] CARDIOVASCULAR: [None] GASTROINTESTINAL: [As above] GENITOURINARY: [None] MUSCULOSKELETAL: [Chronic joint pains] LYMPHATICS: [None] HEMATOLOGICAL: [None] PSYCHIATRY: [None] NEUROLOGICAL: [None] Past medical history: Coronary artery disease with bypass, acute ischemic bowel with perforation, paroxysmal atrial fibrillation, peripheral artery disease, hypothyroid, diabetes mellitus type 2, chronic low back pain from arthritis, depression, hyperlipidemia, hypertension, recurrent intra-abdominal abscess,removal of infected abdominal mesh Social history: Smoked a pack a day for 43 years. Stopped in 2007 alcohol rarely. . Currently at [facility] Family history: Uterine cancer Physical examination: VITAL SIGNS: 97.8, 75, 19, 11 3/81, 100% on room air GENERAL: Laying in bed,, comfortable EYES: Pupils equal. Conjunctiva pale HEENT: External appearance of nose and ears normal, oral cavity dry NECK: JVD unable to assess; masses not palpable. HEART: First and second heart sounds are normal; some edema. LUNGS: Respiratory rate normal; decreased breath sounds. ABDOMEN: Soft, dressing over the abdomen. Minimal tenderness, no guarding or ri gidity, liver spleen not palpable, PSYCH: AAO 3, motor affect normal NEUROLOGICAL: Cranial nerves grossly intact, SENSATION grossly intact INVESTIGATIONS, reviewed in the clinical context: White count 24.6 hemoglobin 11 platelets 671 potassium 3.2 creatinine 0.75 lactic acid 3.5. UA positive Patient's white count was 11.1 on March 31 Computed tomography scan of the abdomen-open anterior abdominal wound, distal colonic fecal debris. EKG tracing-prolonged QT sinus rhythm Chest x-ray film personally reviewed by me-no obvious infiltrates Assessment: -Patient rather extensive medical history regarding intra-abdominal abscess from ischemic bowel with multiple episodes of the same the wound VAC in place. Yesterday had an episode of upper abdominal pain going across, with severe nausea vomiting. Patient also had urinary symptoms and does of frequency but no dysuria. Concern is if intra-abdominal abscesses coming back. Computed tomography scan of the abdomen was otherwise normal, too. 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 costa from ID and Dr. Montoya from general surgery. Home medications resumed. Patient started on vancomycin. Care was discussed with the patient. Questions were answered. Further antibiotics per Dr. costa. Past Medical History Past Medical History: Atrial Fibrillation, Coronary Artery Disease (CAD), Diabetes Mellitus, Hyperlipidemia, Hypertension, Memory Impairment, Osteoarthritis (OA), Thyroid Disorder, Vascular Disorder Additional Past Medical History / Comment(s): 01/18/19 incisional hernia repair-open with mesh and has drain, paroxysmal Afib, NIDDM type II, PAD, decreased circulation to R lower extremity-pt states had several unsuccessful attempts at placing artificial artery, bowel surgery d/t blood clot to colon post operatively, frequent diarrhea, urinary incontinence, chronic elevated WBC, chronic low back pain/pinched nerve, bilateral shoulder pain-DJD, "forgetful", hypothyroid, vertigo at times. History of Any Multi-Drug Resistant Organisms: ESBL, VRE Date of last positivie culture/infection: 03/06/19 VRE; 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 Source:: Abdomen-VRE; Body Fluid Aspirate-ESBL Past Surgical History: Appendectomy, Bowel Resection, Breast Surgery, Cholecystectomy, Coronary Bypass/CABG, Heart Catheterization, Hernia Repair, Joint Replacement, Orthopedic Surgery Additional Past Surgical History / Comment(s): 01/18/19 incisional hernia repair- open with mesh, 12/11/17 CABG 4 vessel, 12/20/17 colectomy/ileostomy with reversal, R leg attempted bypasses with artificial artery which pt states were unsuccessful, L breast benign tumor removed, bilateral total knee arthroplasties, R rotator cuff repair, low back epidural injections, piccs-since removed. Past Anesthesia/Blood Transfusion Reactions: No Reported Reaction Additional Past Anesthesia/Blood Transfusion Reaction / Comment(s): Pt has recently received blood and also years ago received blood without reaction. Past Psychological History: Anxiety, Depression Smoking Status: Former smoker Past Alcohol Use History: None Reported Past Drug Use History: None Reported - Past Family History Mother Family Medical History: Cancer Additional Family Medical History / Comment(s): Uterine cancer. Father Family Medical History: Congestive Heart Failure (CHF) Medications and Allergies Home Medications Medication Instructions Recorded Confirmed Type DULoxetine HCL [Cymbalta] 60 mg PO HS@2100 12/14/16 04/17/19 History Ergocalciferol (Vitamin D2) 50,000 unit PO COHEN@1700 12/14/16 04/17/19 History [Vitamin D2] Amiodarone [Cordarone] 100 mg PO DAILY@0800 03/02/18 04/17/19 History Furosemide [Lasix] 40 mg PO BID@0600,1400 03/02/18 04/17/19 History Latanoprost/Pf [Latanoprost 0.005% 1 drop BOTH EYES HS@2100 03/02/18 04/17/19 History Eye Drop] Cilostazol [Pletal] 100 mg PO DAILY@0800 11/15/18 04/17/19 History Metoprolol Tartrate [Lopressor] 50 mg PO BID@0800,1700 11/15/18 04/17/19 History metFORMIN HCL [Glucophage] 500 mg PO BID@0800,1700 11/15/18 04/17/19 History Ensure Clear 237 ml PO BID@0800,1700 03/05/19 04/17/19 History L.acidoph,Paracasei, B.lactis 1 cap PO BID@0800,1700 03/05/19 04/17/19 History [Probiotic] Levothyroxine Sodium [Synthroid] 88 mcg PO DAILY@0600 03/05/19 04/17/19 History Na Phos,M-B/Na Phos,Di-Ba [Fleet 133 ml RECTAL DAILY PRN 03/05/19 04/17/19 History Adult] predniSONE 10 mg PO DAILY@0800 03/05/19 04/17/19 History Atorvastatin [Lipitor] 40 mg PO HS@2100 tab 03/13/19 04/17/19 Rx Losartan [Cozaar] 50 mg PO DAILY@0800 tab 03/13/19 04/17/19 Rx Ferrous Sulfate [Iron (65 MG 325 mg PO DAILY@1700 03/30/19 04/17/19 History Elemental)] INSULIN ASPART (NovoLOG) [NovoLOG See Protocol SQ ACHS 03/30/19 04/17/19 History (formulary)] Nystatin 100,000Unit/gm Cream 1 applic TOPICAL BID@0800,2100 03/30/19 04/17/19 History [Mycostatin Cream] Ondansetron HCl [Zofran] 8 mg PO Q12H PRN 03/30/19 04/17/19 History Bisacodyl [Dulcolax] 10 mg RECTAL DAILY PRN 04/17/19 04/17/19 History Loperamide [Imodium] 2 mg PO BID PRN 04/17/19 04/17/19 History Magic Cup 1 dose PO DAILY@1500 04/17/19 04/17/19 History Magnesium Hydroxide [Milk of 7,200 mg PO DAILY PRN 04/17/19 04/17/19 History Magnesia Concentrate] Potassium Chloride ER [K-Dur 20] 20 meq PO DAILY@1700 04/17/19 04/17/19 History oxyCODONE ER [OxyCONTIN] 15 mg PO Q12H 04/17/19 04/17/19 History Allergies Allergy/AdvReac Type Severity Reaction Status Date / Time morphine Allergy Intermediate Itching Verified 04/17/19 18:19 Physical Exam Vitals: Vital Signs Temp Pulse Resp BP Pulse Ox 04/17/19 19:15 99.0 F 81 18 112/66 98 04/17/19 17:30 86 18 110/70 97 04/17/19 12:58 97.8 F 75 19 113/81 100 Intake and Output 04/17/19 04/17/19 04/17/19 06:59 14:59 22:59 Other: Weight 79.832 kg Results CBC & Chem 7: 04/17/19 14:15 04/17/19 14:15 Labs: Abnormal Lab Results - Last 24 Hours (Table) 04/17/19 04/17/19 04/17/19 Range/Units 14:15 14:15 14:15 WBC 24.6 H (3.8-10.6) k/uL Hgb 11.0 L (11.4-16.0) gm/dL MCV 78.8 L (80.0-100.0) fL RDW 16.8 H (11.5-15.5) % Plt Count 671 H (150-450) k/uL Neutrophils # 22.3 H (1.3-7.7) k/uL Lymphocytes # 0.9 L (1.0-4.8) k/uL Sodium 134 L (137-145) mmol/L Potassium 3.2 L (3.5-5.1) mmol/L Chloride 94 L (98-107) mmol/L Glucose 171 H (74-99) mg/dL Plasma Lactic Acid [place] 3.5 H* (0.7-2.0) mmol/L Magnesium 1.1 L (1.6-2.3) mg/dL Alkaline Phosphatase 199 H (38-126) U/L Urine Appearance (Clear) Ur Specific [place] (1.001-1.035) Urine Protein (Negative) Urine Blood (Negative) Urine Nitrite (Negative) Ur Leukocyte Esterase (Negative) Urine RBC (0-5) /hpf Urine WBC (0-5) /hpf Urine Bacteria (None) /hpf Urine Mucus (None) /hpf 04/17/19 04/17/19 Range/Units 17:30 19:09 WBC (3.8-10.6) k/uL Hgb (11.4-16.0) gm/dL MCV (80.0-100.0) fL RDW (11.5-15.5) % Plt Count (150-450) k/uL Neutrophils # (1.3-7.7) k/uL Lymphocytes # (1.0-4.8) k/uL Sodium (137-145) mmol/L Potassium (3.5-5.1) mmol/L Chloride (98-107) mmol/L Glucose (74-99) mg/dL Plasma Lactic Acid [place] 3.9 H* (0.7-2.0) mmol/L Magnesium (1.6-2.3) mg/dL Alkaline Phosphatase (38-126) U/L Urine Appearance Cloudy H (Clear) Ur Specific [place] 1.050 H (1.001-1.035) Urine Protein Trace H (Negative) Urine Blood Moderate H (Negative) Urine Nitrite Positive H (Negative) Ur Leukocyte Esterase Large H (Negative) Urine RBC 15 H (0-5) /hpf Urine WBC >182 H (0-5) /hpf Urine Bacteria Occasional H (None) /hpf Urine Mucus Many H (None) /hpf
[2019-04-17] MEDS: KETOROLAC 30 MG/ML 1 ML VIAL IVP PRN (22:10)
[2019-04-17 23:19] LABS: Glucose,Whole Blood 161 mg/dL (75-99)
[2019-04-17] MEDS: LATANOPROST 0.005% OPHTH DROPS 2.5 ML BTL BOTH EYES SCH (23:49)
[2019-04-17] MEDS: DULoxetine HCL 60 MG CAPSULE.DR PO SCH (23:49)
[2019-04-17] MEDS: ATORVASTATIN 40 MG TAB PO SCH (23:49)
[2019-04-17] MEDS: INSULIN ASPART (NovoLOG) 100 UNIT/ML VIAL SQ SCH (23:50)
[2019-04-17] MEDS: oxyCODONE ER 15 MG TAB.ER.12H PO SCH (23:50)
[2019-04-17] MEDS: MAGNESIUM OXIDE 400 MG TAB PO SCH (23:50)
[2019-04-17] MEDS: POTASSIUM CHLORIDE ER 20 MEQ TAB.ER PO SCH (23:50)
[2019-04-17] MEDS: NYSTATIN 100,000UNIT/GM CREAM 30 GM TUBE TOPICAL SCH (23:51)
[2019-04-18] MEDS: SODIUM CHLORIDE 0.9% 1,000 ML IV SCH ×4 (03:04→20:54)
[2019-04-18] MEDS: KETOROLAC 30 MG/ML 1 ML VIAL IVP PRN (03:52)
[2019-04-18 03:53] LABS: Anisocytosis Slight; Basophils # (A) 0.1 k/uL (0-0.2); Basophils % (A) 1 %; Eosinophils # (A) 0.4 k/uL (0-0.7); Eosinophils % (A) 4 %; HCT 28.6 % (34.0-46.0); Hypochromasia Marked; Lymphocytes % (A) 9 %; MCH 24.8 pg (25.0-35.0); MCHC 31.1 g/dL (31.0-37.0); MCV 79.6 fL (80.0-100.0); Mean Platelet Volume 7.2; Microcytosis Slight; Monocytes # (A) 0.6 k/uL (0-1.0); Monocytes % (A) 5 %; Neutrophils # (A) 9.2 k/uL (1.3-7.7); Neutrophils % (A) 81 %; Platelet Count 507 k/uL (150-450); Poikilocytosis Slight; RBC 3.59 m/uL (3.80-5.40); WBC 11.4 k/uL (3.8-10.6)
[2019-04-18 03:59] LABS: ALT 17 U/L (4-34); AST 22 U/L (14-36); African American GFR (CKD) >90 (>60 ml/min/1.73 sqM); Albumin 2.7 g/dL (3.5-5.0); Alkaline Phosphatase 143 U/L (38-126); Anion Gap 5 mmol/L; Blood Urea Nitrogen 10 mg/dL (7-17); Calcium 8.1 mg/dL (8.4-10.2); Carbon Dioxide 27 mmol/L (22-30); Chloride 104 mmol/L (98-107); Glucose 98 mg/dL (74-99); Non-African American GFR(CKD) 89 (>60 ml/min/1.73 sqM); Sodium 136 mmol/L (137-145); Total Bilirubin 0.5 mg/dL (0.2-1.3); Total Protein 5.1 g/dL (6.3-8.2)
[2019-04-18 04:02] LABS: Potassium 3.3 mmol/L (3.5-5.1)
[2019-04-18 04:06] LABS: HGB 8.9 gm/dL (11.4-16.0)
[2019-04-18] MEDS: LEVOTHYROXINE 88 MCG TAB PO SCH (05:28)
[2019-04-18] MEDS: FUROSEMIDE 40 MG TAB PO SCH ×2 (05:28→14:42)
[2019-04-18 06:45] LABS: Glucose,Whole Blood 98 mg/dL (75-99)
[2019-04-18] MEDS: INSULIN ASPART (NovoLOG) 100 UNIT/ML VIAL SQ SCH ×5 (07:24→20:53)
[2019-04-18] MEDS ORDERED: [UNRECOGNIZED DRUG - OTHER] PO SCH (08:00)
[2019-04-18] MEDS ORDERED: VANCOMYCIN 1,500 MG in SODIUM CHLORIDE 0.9% 250 ML IVPB SCH (08:00)
[2019-04-18] MEDS: LACTOBACILLUS ACIDOPH & BULGAR 1 EACH PACKET PO SCH ×2 (08:45→17:11)
[2019-04-18] MEDS: oxyCODONE ER 15 MG TAB.ER.12H PO SCH ×2 (08:45→20:54)
[2019-04-18] MEDS: predniSONE 10 MG TAB PO SCH (08:45)
[2019-04-18] MEDS: PANTOPRAZOLE 40 MG/10 ML VIAL IV SCH (08:45)
[2019-04-18] MEDS: METOPROLOL TARTRATE 50 MG TAB PO SCH ×2 (08:45→17:10)
[2019-04-18] MEDS: MAGNESIUM OXIDE 400 MG TAB PO SCH ×3 (08:46→20:54)
[2019-04-18] MEDS: LOSARTAN 50 MG TAB PO SCH (08:46)
[2019-04-18] MEDS: metFORMIN 500 MG TAB PO SCH ×2 (09:26→17:10)
[2019-04-18] MEDS: NYSTATIN 100,000UNIT/GM CREAM 30 GM TUBE TOPICAL SCH ×2 (09:27→20:54)
[2019-04-18] MEDS: CILOSTAZOL 100 MG TAB PO SCH (10:35)
[2019-04-18] MEDS: AMIODARONE 100 MG TAB PO SCH (10:35)
[2019-04-18 12:00] LABS: Glucose,Whole Blood 198 mg/dL (75-99)
[2019-04-18] MEDS: CEFEPIME 2 GM in SODIUM CHLORIDE 0.9% 100 ML IVPB SCH ×2 (14:42→20:53)
[2019-04-18] MEDS ORDERED: NON FORMULARY DRUG (Magic Cup 1 DOSE) PO SCH (15:00)
--- NOTE | 2019-04-18 15:42 | P.GSCN ---
History of Present Illness Consult date: 04/18/19 Reason for Consult: surgical wound management Requesting physician: Yeni Shoemaker History of present illness: CHIEF COMPLAINT: surgical wound management HISTORY OF PRESENT ILLNESS: 74-year-old female well-known to surgical services for recent incisional hernia repair and postoperative abscess with recent removal of infected mesh. Patient was discharged to [facility] with wound VAC and IV antibiotics per infectious disease recommendations. Patient states she has been doing well until a few days ago. She states she recently completed her course of IV antibiotics. She reports she saw Dr. Montoya in his office on Monday. She states at that time she began feeling kind of weak. She saw Dr. Lancaster yesterday at his office. Patient reports she began vomiting at that time and was referred to the emergency room for further evaluation. Patient states she is feeling well this morning. She has been tolerating liquid diet. No further episodes of nausea or vomiting. PAST MEDICAL HISTORY: See list. PAST SURGICAL HISTORY: See list. SOCIAL HISTORY: No illicit drug use. REVIEW OF SYSTEMS: CONSTITUTIONAL: Denies fever or chills. HEENT: Denies blurred vision, vision changes, or eye pain. Denies hemoptysis CARDIOVASCULAR: Denies chest pain or pressure. RESPIRATORY: No shortness of breath. GASTROINTESTINAL: Refer to HPI for pertinent findings HEMATOLOGIC: Denies bleeding disorders. GENITOURINARY: Denies any blood in urine. SKIN: Denies pruitis. Denies rash. PHYSICAL EXAM: VITAL SIGNS: Reviewed. GENERAL: Well-developed in no acute distress. HEENT: No sclera icterus. Extraocular movements grossly intact. Moist buccal mucosa. Head is atraumatic, normocephalic. ABDOMEN: Soft. Nondistended. Large open wound with packing noted. No necrotic tissue. NEUROLOGIC: Alert and oriented. Cranial nerves II through XII grossly intact. LABORATORY DATA: WBC 11.4. Hemoglobin 8.9. Platelet count 507. IMAGING: CT abdomen and pelvis: Open anterior abdominal wound. Distal colonic fecal debris. Correlate for mild fecal retention. ASSESSMENT: Nausea UTI History of incisional hernia repair, complicated by rectal sheath hemorrhage, December 2018 History of postoperative intra-abdominal abscess, status post incisional hernia repair with recent removal of infected mesh PLAN: -Advance diet -Continue antibiotics per Dr. Lancaster -May resume wound VAC from surgical standpoint. We will defer to infectious disease -No surgical intervention recommended at this time Nurse practitioner note has been reviewed by physician. Signing provider agrees with the documented findings, assessment, and plan of care. Past Medical History Past Medical History: Atrial Fibrillation, Coronary Artery Disease (CAD), Diabetes Mellitus, Hyperlipidemia, Hypertension, Memory Impairment, Osteoarthritis (OA), Thyroid Disorder, Vascular Disorder Additional Past Medical History / Comment(s): 01/18/19 incisional hernia repair- open with mesh and has drain, paroxysmal Afib, NIDDM type II, PAD, decreased circulation to R lower extremity-pt states had several unsuccessful attempts at placing artificial artery, bowel surgery d/t blood clot to colon post o peratively, frequent diarrhea, urinary incontinence, chronic elevated WBC, chronic low back pain/pinched nerve, bilateral shoulder pain-DJD, "forgetful", hypothyroid, vertigo at times. 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; 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 Source:: Abdomen-VRE; Body Fluid Aspirate-ESBL Past Surgical History: Appendectomy, Bowel Resection, Breast Surgery, Cholecystectomy, Coronary Bypass/CABG, Heart Catheterization, Hernia Repair, Joint Replacement, Orthopedic Surgery Additional Past Surgical History / Comment(s): 01/18/19 incisional hernia repair- open with mesh, 12/11/17 CABG 4 vessel, 12/20/17 colectomy/ileostomy with reversal, R leg attempted bypasses with artificial artery which pt states were unsuccessful, L breast benign tumor removed, bilateral total knee arthroplasties, R rotator cuff repair, low back epidural injections, piccs-since removed. Past Anesthesia/Blood Transfusion Reactions: No Reported Reaction Additional Past Anesthesia/Blood Transfusion Reaction / Comm: Pt has recently received blood and also years ago received blood without reaction. Past Psychological History: Anxiety, Depression Additional Psychological History / Comment(s): Pt lives with her spouse in [place] and they winter in [place]. She lately has been using a walker to ambulate d/t weakness, but normally uses a cane. She no longer drives d/t rotator cuff problems, her spouse drives. She is otherwise independent. Smoking Status: Former smoker Past Alcohol Use History: None Reported Additional Past Alcohol Use History / Comment(s): Pt started smoking in 1965 and quit in 2007. She was a ppd smoker. Past Drug Use History: None Reported - Past Family History Mother Family Medical History: Cancer Additional Family Medical History / Comment(s): Uterine cancer. Father Family Medical History: Congestive Heart Failure (CHF) Medications and Allergies Home Medications Medication Instructions Recorded Confirmed Type DULoxetine HCL [Cymbalta] 60 mg PO HS@2100 12/14/16 04/17/19 History Ergocalciferol (Vitamin D2) 50,000 unit PO COHEN@1700 12/14/16 04/17/19 History [Vitamin D2] Amiodarone [Cordarone] 100 mg PO DAILY@0800 03/02/18 04/17/19 History Furosemide [Lasix] 40 mg PO BID@0600,1400 03/02/18 04/17/19 History Latanoprost/Pf [Latanoprost 0.005% 1 drop BOTH EYES HS@2100 03/02/18 04/17/19 History Eye Drop] Cilostazol [Pletal] 100 mg PO DAILY@0800 11/15/18 04/17/19 History Metoprolol Tartrate [Lopressor] 50 mg PO BID@0800,1700 11/15/18 04/17/19 History metFORMIN HCL [Glucophage] 500 mg PO BID@0800,1700 11/15/18 04/17/19 History Ensure Clear 237 ml PO BID@0800,1700 03/05/19 04/17/19 History L.acidoph,Paracasei, B.lactis 1 cap PO BID@0800,1700 03/05/19 04/17/19 History [Probiotic] Levothyroxine Sodium [Synthroid] 88 mcg PO DAILY@0600 03/05/19 04/17/19 History Na Phos,M-B/Na Phos,Di-Ba [Fleet 133 ml RECTAL DAILY PRN 03/05/19 04/17/19 History Adult] predniSONE 10 mg PO DAILY@0800 03/05/19 04/17/19 History Atorvastatin [Lipitor] 40 mg PO HS@2100 tab 03/13/19 04/17/19 Rx Losartan [Cozaar] 50 mg PO DAILY@0800 tab 03/13/19 04/17/19 Rx Ferrous Sulfate [Iron (65 MG 325 mg PO DAILY@1700 03/30/19 04/17/19 History Elemental)] INSULIN ASPART (NovoLOG) [NovoLOG See Protocol SQ ACHS 03/30/19 04/17/19 History (formulary)] Nystatin 100,000Unit/gm Cream 1 applic TOPICAL BID@0800,2100 03/30/19 04/17/19 History [Mycostatin Cream] Ondansetron HCl [Zofran] 8 mg PO Q12H PRN 03/30/19 04/17/19 History Bisacodyl [Dulcolax] 10 mg RECTAL DAILY PRN 04/17/19 04/17/19 History Loperamide [Imodium] 2 mg PO BID PRN 04/17/19 04/17/19 History Magic Cup 1 dose PO DAILY@1500 04/17/19 04/17/19 History Magnesium Hydroxide [Milk of 7,200 mg PO DAILY PRN 04/17/19 04/17/19 History Magnesia Concentrate] Potassium Chloride ER [K-Dur 20] 20 meq PO DAILY@1700 04/17/19 04/17/19 History oxyCODONE ER [OxyCONTIN] 15 mg PO Q12H 04/17/19 04/17/19 History Allergies Allergy/AdvReac Type Severity Reaction Status Date / Time morphine Allergy Intermediate Itching Verified 04/17/19 18:19 Surgical - Exam Vital Signs Temp Pulse Resp BP Pulse Ox 97.8 F 75 19 113/81 100 04/17/19 12:58 04/17/19 12:58 04/17/19 12:58 04/17/19 12:58 04/17/19 12:58 Results - Labs 04/18/19 03:36 04/18/19 03:36 Abnormal Lab Results - Last 24 Hours (Table) 04/17/19 04/17/19 04/17/19 Range/Units 17:30 19:09 23:18 WBC (3.8-10.6) k/uL RBC (3.80-5.40) m/uL Hgb (11.4-16.0) gm/dL Hct (34.0-46.0) % MCV (80.0-100.0) fL MCH (25.0-35.0) pg RDW (11.5-15.5) % Plt Count (150-450) k/uL Neutrophils # (1.3-7.7) k/uL Sodium (137-145) mmol/L Potassium (3.5-5.1) mmol/L POC Glucose (mg/dL) 161 H (75-99) mg/dL Plasma Lactic Acid [place] 3.9 H* (0.7-2.0) mmol/L Calcium (8.4-10.2) mg/dL Alkaline Phosphatase (38-126) U/L Total Protein (6.3-8.2) g/dL Albumin (3.5-5.0) g/dL Urine Appearance Cloudy H (Clear) Ur Specific [place] 1.050 H (1.001-1.035) Urine Protein Trace H (Negative) Urine Blood Moderate H (Negative) Urine Nitrite Positive H (Negative) Ur Leukocyte Esterase Large H (Negative) Urine RBC 15 H (0-5) /hpf Urine WBC >182 H (0-5) /hpf Urine Bacteria Occasional H (None) /hpf Urine Mucus Many H (None) /hpf 04/17/19 04/18/19 04/18/19 Range/Units 23:32 03:36 03:36 WBC 11.4 H (3.8-10.6) k/uL RBC 3.59 L (3.80-5.40) m/uL Hgb 8.9 L D (11.4-16.0) gm/dL Hct 28.6 L (34.0-46.0) % MCV 79.6 L (80.0-100.0) fL MCH 24.8 L (25.0-35.0) pg RDW 17.0 H (11.5-15.5) % Plt Count 507 H (150-450) k/uL Neutrophils # 9.2 H (1.3-7.7) k/uL Sodium 136 L (137-145) mmol/L Potassium 3.3 L (3.5-5.1) mmol/L POC Glucose (mg/dL) (75-99) mg/dL Plasma Lactic Acid [place] 2.9 H* (0.7-2.0) mmol/L Calcium 8.1 L (8.4-10.2) mg/dL Alkaline Phosphatase 143 H (38-126) U/L Total Protein 5.1 L (6.3-8.2) g/dL Albumin 2.7 L (3.5-5.0) g/dL Urine Appearance (Clear) Ur Specific [place] (1.001-1.035) Urine Protein (Negative) Urine Blood (Negative) Urine Nitrite (Negative) Ur Leukocyte Esterase (Negative) Urine RBC (0-5) /hpf Urine WBC (0-5) /hpf Urine Bacteria (None) /hpf Urine Mucus (None) /hpf 04/18/19 Range/Units 11:46 WBC (3.8-10.6) k/uL RBC (3.80-5.40) m/uL Hgb (11.4-16.0) gm/dL Hct (34.0-46.0) % MCV (80.0-100.0) fL MCH (25.0-35.0) pg RDW (11.5-15.5) % Plt Count (150-450) k/uL Neutrophils # (1.3-7.7) k/uL Sodium (137-145) mmol/L Potassium (3.5-5.1) mmol/L POC Glucose (mg/dL) 198 H (75-99) mg/dL Plasma Lactic Acid [place] (0.7-2.0) mmol/L Calcium (8.4-10.2) mg/dL Alkaline Phosphatase (38-126) U/L Total Protein (6.3-8.2) g/dL Albumin (3.5-5.0) g/dL Urine Appearance (Clear) Ur Specific [place] (1.001-1.035) Urine Protein (Negative) Urine Blood (Negative) Urine Nitrite (Negative) Ur Leukocyte Esterase (Negative) Urine RBC (0-5) /hpf Urine WBC (0-5) /hpf Urine Bacteria (None) /hpf Urine Mucus (None) /hpf Microbiology - Last 24 Hours (Table) 04/17/19 17:30 Urine Culture - Preliminary Urine,Voided Diabetes panel 04/18/19 Range/Units 03:36 Sodium 136 L (137-145) mmol/L Potassium 3.3 L (3.5-5.1) mmol/L Chloride 104 (98-107) mmol/L Carbon Dioxide 27 (22-30) mmol/L BUN 10 (7-17) mg/dL Creatinine 0.66 (0.52-1.04) mg/dL Glucose 98 (74-99) mg/dL Calcium 8.1 L (8.4-10.2) mg/dL AST 22 (14-36) U/L ALT 17 (4-34) U/L Alkaline Phosphatase 143 H (38-126) U/L Total Protein 5.1 L (6.3-8.2) g/dL Albumin 2.7 L (3.5-5.0) g/dL Calcium panel 04/18/19 Range/Units 03:36 Calcium 8.1 L (8.4-10.2) mg/dL Albumin 2.7 L (3.5-5.0) g/dL Pituitary panel 04/18/19 Range/Units 03:36 Sodium 136 L (137-145) mmol/L Potassium 3.3 L (3.5-5.1) mmol/L Chloride 104 (98-107) mmol/L Carbon Dioxide 27 (22-30) mmol/L BUN 10 (7-17) mg/dL Creatinine 0.66 (0.52-1.04) mg/dL Glucose 98 (74-99) mg/dL Calcium 8.1 L (8.4-10.2) mg/dL Adrenal panel 04/18/19 Range/Units 03:36 Sodium 136 L (137-145) mmol/L Potassium 3.3 L (3.5-5.1) mmol/L Chloride 104 (98-107) mmol/L Carbon Dioxide 27 (22-30) mmol/L BUN 10 (7-17) mg/dL Creatinine 0.66 (0.52-1.04) mg/dL Glucose 98 (74-99) mg/dL Calcium 8.1 L (8.4-10.2) mg/dL Total Bilirubin 0.5 (0.2-1.3) mg/dL AST 22 (14-36) U/L ALT 17 (4-34) U/L Alkaline Phosphatase 143 H (38-126) U/L Total Protein 5.1 L (6.3-8.2) g/dL Albumin 2.7 L (3.5-5.0) g/dL
[2019-04-18] MEDS ORDERED: POTASSIUM CHLORIDE ER 20 MEQ TAB.ER PO SCH (17:00)
[2019-04-18 17:01] LABS: Glucose,Whole Blood 282 mg/dL (75-99)
[2019-04-18] MEDS: FERROUS SULFATE 325 MG TAB PO SCH (17:10)
[2019-04-18] MEDS: POTASSIUM CHLORIDE ER 20 MEQ TAB.ER PO SCH (17:10)
[2019-04-18 20:37] LABS: Glucose,Whole Blood 247 mg/dL (75-99)
[2019-04-18] MEDS: DULoxetine HCL 60 MG CAPSULE.DR PO SCH (20:53)
[2019-04-18] MEDS: ATORVASTATIN 40 MG TAB PO SCH (20:53)
[2019-04-18] MEDS: LATANOPROST 0.005% OPHTH DROPS 2.5 ML BTL BOTH EYES SCH (20:53)
--- NOTE | 2019-04-18 22:38 | P.CONS ---
History of Present Illness - Reason for Consult Consult date: 04/18/19 UTI And Abdominal wound Requesting physician: Parveen Dietz - Chief Complaint vomiting and urinary frequency x 1 day - History of Present Illness Patient is a 74-year-old female with a past medical history significant for infected abdominal mesh status post removal with resultant extensive abdominal wound patient has completed antibiotic therapy the patient came to the wound care center yesterday for evaluation of her abdominal wound patient did have a significant nausea and vomiting that apparently started the day she presented to the wound care center no worsening abdominal pain and the patient was complaining of urinary frequency and some burning but no hematuria with the symptom the patient was sent to [facility] ER on arrival to the ER the patient has been afebrile however he did have elevated white count 24,[address] of abdominal pelvis with evidence of abdominal wound but no abscess patient did receive a dose of Zosyn and vancomycin in the ER subsequently vancomycin was continued infectious was consulted for further r ecommendation for antibiotic therapy, as of this morning the patient denies having any fever any chills no further nausea no vomiting he denies any abdominal pain and no diarrhea. Review of Systems Positive point has been mentioned in HPI rest of the systems are negative Past Medical History Past Medical History: Atrial Fibrillation, Coronary Artery Disease (CAD), Diabetes Mellitus, Hyperlipidemia, Hypertension, Memory Impairment, Osteoarthritis (OA), Thyroid Disorder, Vascular Disorder Additional Past Medical History / Comment(s): 01/18/19 incisional hernia repair- open with mesh and has drain, paroxysmal Afib, NIDDM type II, PAD, decreased circulation to R lower extremity-pt states had several unsuccessful attempts at placing artificial artery, bowel surgery d/t blood clot to colon post operativ hayde, frequent diarrhea, urinary incontinence, chronic elevated WBC, chronic low back pain/pinched nerve, bilateral shoulder pain-DJD, "forgetful", hypothyroid, vertigo at times. 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; 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 Source:: Abdomen-VRE; Body Fluid Aspirate-ESBL Past Surgical History: Appendectomy, Bowel Resection, Breast Surgery, Cholecystectomy, Coronary Bypass/CABG, Heart Catheterization, Hernia Repair, Joint Replacement, Orthopedic Surgery Additional Past Surgical History / Comment(s): 01/18/19 incisional hernia repair- open with mesh, 12/11/17 CABG 4 vessel, 12/20/17 colectomy/ileostomy with reversal, R leg attempted bypasses with artificial artery which pt states were unsuccessful, L breast benign tumor removed, bilateral total knee arthroplasties, R rotator cuff repair, low back epidural injections, piccs-since removed. Past Anesthesia/Blood Transfusion Reactions: No Reported Reaction Additional Past Anesthesia/Blood Transfusion Reaction / Comm: Pt has recently received blood and also years ago received blood without reaction. Past Psychological History: Anxiety, Depression Additional Psychological History / Comment(s): Pt lives with her spouse in [place] and they winter in [place]. She lately has been using a walker to ambulate d/t weakness, but normally uses a cane. She no longer drives d/t rotator cuff problems, her spouse drives. She is otherwise independent. Smoking Status: Former smoker Past Alcohol Use History: None Reported Additional Past Alcohol Use History / Comment(s): Pt started smoking in 1964 and quit in 2007. She was a ppd smoker. Past Drug Use History: None Reported - Past Family History Mother Family Medical History: Cancer Additional Family Medical History / Comment(s): Uterine cancer. Father Family Medical History: Congestive Heart Failure (CHF) Medications and Allergies Home Medications Medication Instructions Recorded Confirmed Type DULoxetine HCL [Cymbalta] 60 mg PO HS@209912/14/16 04/17/19 History Ergocalciferol (Vitamin D2) 50,000 unit PO COHEN@1700 12/14/16 04/17/19 History [Vitamin D2] Amiodarone [Cordarone] 100 mg PO DAILY@0800 03/02/18 04/17/19 History Furosemide [Lasix] 40 mg PO BID@0600,1400 03/02/18 04/17/19 History Latanoprost/Pf [Latanoprost 0.005% 1 drop BOTH EYES HS@209903/02/18 04/17/19 History Eye Drop] Cilostazol [Pletal] 100 mg PO DAILY@0800 11/15/18 04/17/19 History Metoprolol Tartrate [Lopressor] 50 mg PO BID@0800,1700 11/15/18 04/17/19 History metFORMIN HCL [Glucophage] 500 mg PO BID@0800,1700 11/15/18 04/17/19 History Ensure Clear 237 ml PO BID@0800,1700 03/05/19 04/17/19 History L.acidoph,Paracasei, B.lactis 1 cap PO BID@0800,1700 03/05/19 04/17/19 History [Probiotic] Levothyroxine Sodium [Synthroid] 88 mcg PO DAILY@0600 03/05/19 04/17/19 History Na Phos,M-B/Na Phos,Di-Ba [Fleet 133 ml RECTAL DAILY PRN 03/05/19 04/17/19 History Adult] predniSONE 10 mg PO DAILY@0800 03/05/19 04/17/19 History Atorvastatin [Lipitor] 40 mg PO HS@2100 tab 03/13/19 04/17/19 Rx Losartan [Cozaar] 50 mg PO DAILY@0800 tab 03/13/19 04/17/19 Rx Ferrous Sulfate [Iron (65 MG 325 mg PO DAILY@1700 03/30/19 04/17/19 History Elemental)] INSULIN ASPART (NovoLOG) [NovoLOG See Protocol SQ ACHS 03/30/19 04/17/19 History (formulary)] Nystatin 100,000Unit/gm Cream 1 applic TOPICAL BID@0800,2100 03/30/19 04/17/19 History [Mycostatin Cream] Ondansetron HCl [Zofran] 8 mg PO Q12H PRN 03/30/19 04/17/19 History Bisacodyl [Dulcolax] 10 mg RECTAL DAILY PRN 04/17/19 04/17/19 History Loperamide [Imodium] 2 mg PO BID PRN 04/17/19 04/17/19 History Magic Cup 1 dose PO DAILY@1500 04/17/19 04/17/19 History Magnesium Hydroxide [Milk of 7,200 mg PO DAILY PRN 04/17/19 04/17/19 History Magnesia Concentrate] Potassium Chloride ER [K-Dur 20] 20 meq PO DAILY@1700 04/17/19 04/17/19 History oxyCODONE ER [OxyCONTIN] 15 mg PO Q12H 04/17/19 04/17/19 History Allergies Allergy/AdvReac Type Severity Reaction Status Date / Time morphine Allergy Intermediate Itching Verified 04/17/19 18:19 Physical Exam Vitals: Vital Signs Temp Pulse Pulse Resp BP BP Pulse Ox 04/18/19 07:00 98.0 F 81 16 122/73 96 04/18/19 00:49 97.6 F 79 16 113/73 98 04/17/19 22:47 98.2 F 81 16 101/67 98 04/17/19 22:00 77 20 127/76 97 04/17/19 19:15 99.0 F 81 18 112/66 98 04/17/19 17:30 86 18 110/70 97 04/17/19 12:58 97.8 F 75 19 113/81 100 Intake and Output 04/17/19 04/18/19 04/18/19 22:59 06:59 14:59 Intake Total 600 Balance 600 Intake: Intake, IV Titration 600 Amount Sodium Chloride 0.9% 1, 600 000 ml @ 136 mls/hr IV . Q7H22M [facility] Rx#:[id number] Other: Voiding Method Toilet Toilet Diaper Diaper Incontinent Incontinent # Voids 1 Weight 79.832 kg GENERAL DESCRIPTION: Elderly female lying in bed, no distress. No tachypnea or accessory muscle of respiration use. HEENT: Shows Pallor , no scleral icterus. Oral mucous membrane is dry. NECK: Trachea central, no thyromegaly. LUNGS: Unlabored breathing. Clear to auscultation anteriorly. No wheeze or cr ackle. HEART: S1, S2, regular rate and rhythm. ABDOMEN: Soft, no tenderness , guarding or rigidity EXTREMITIES: No edema of feet. SKIN: No rash, no masses palpable. NEUROLOGICAL: The patient is awake, alert, oriented x3, mood and affect normal. Results CBC & Chem 7: 04/18/19 03:36 04/18/19 03:36 Labs: Abnormal Lab Results - Last 24 Hours (Table) 04/17/19 04/17/19 04/17/19 Range/Units 14:15 14:15 14:15 WBC 24.6 H (3.8-10.6) k/uL RBC (3.80-5.40) m/uL Hgb 11.0 L (11.4-16.0) gm/dL Hct (34.0-46.0) % MCV 78.8 L (80.0-100.0) fL MCH (25.0-35.0) pg RDW 16.8 H (11.5-15.5) % Plt Count 671 H (150-450) k/uL Neutrophils # 22.3 H (1.3-7.7) k/uL Lymphocytes # 0.9 L (1.0-4.8) k/uL Sodium 134 L (137-145) mmol/L Potassium 3.2 L (3.5-5.1) mmol/L Chloride 94 L (98-107) mmol/L Glucose 171 H (74-99) mg/dL POC Glucose (mg/dL) (75-99) mg/dL Plasma Lactic Acid Frederick 3.5 H* (0.7-2.0) mmol/L Calcium (8.4-10.2) mg/dL Magnesium 1.1 L (1.6-2.3) mg/dL Alkaline Phosphatase 199 H (38-126) U/L Total Protein (6.3-8.2) g/dL Albumin (3.5-5.0) g/dL Urine Appearance (Clear) Ur Specific [place] (1.001-1.035) Urine Protein (Negative) Urine Blood (Negative) Urine Nitrite (Negative) Ur Leukocyte Esterase (Negative) Urine RBC (0-5) /hpf Urine WBC (0-5) /hpf Urine Bacteria (None) /hpf Urine Mucus (None) /hpf 04/17/19 04/17/19 04/17/19 Range/Units 17:30 19:09 23:18 WBC (3.8-10.6) k/uL RBC (3.80-5.40) m/uL Hgb (11.4-16.0) gm/dL Hct (34.0-46.0) % MCV (80.0-100.0) fL MCH (25.0-35.0) pg RDW (11.5-15.5) % Plt Count (150-450) k/uL Neutrophils # (1.3-7.7) k/uL Lymphocytes # (1.0-4.8) k/uL Sodium (137-145) mmol/L Potassium (3.5-5.1) mmol/L Chloride (98-107) mmol/L Glucose (74-99) mg/dL POC Glucose (mg/dL) 161 H (75-99) mg/dL Plasma Lactic Acid Frederick 3.9 H* (0.7-2.0) mmol/L Calcium (8.4-10.2) mg/dL Magnesium (1.6-2.3) mg/dL Alkaline Phosphatase (38-126) U/L Total Protein (6.3-8.2) g/dL Albumin (3.5-5.0) g/dL Urine Appearance Cloudy H (Clear) Ur Specific [place] 1.050 H (1.001-1.035) Urine Protein Trace H (Negative) Urine Blood Moderate H (Negative) Urine Nitrite Positive H (Negative) Ur Leukocyte Esterase Large H (Negative) Urine RBC 15 H (0-5) /hpf Urine WBC >182 H (0-5) /hpf Urine Bacteria Occasional H (None) /hpf Urine Mucus Many H (None) /hpf 04/17/19 04/18/19 04/18/19 Range/Units 23:32 03:36 03:36 WBC 11.4 H (3.8-10.6) k/uL RBC 3.59 L (3.80-5.40) m/uL Hgb 8.9 L D (11.4-16.0) gm/dL Hct 28.6 L (34.0-46.0) % MCV 79.6 L (80.0-100.0) fL MCH 24.8 L (25.0-35.0) pg RDW 17.0 H (11.5-15.5) % Plt Count 507 H (150-450) k/uL Neutrophils # 9.2 H (1.3-7.7) k/uL Lymphocytes # (1.0-4.8) k/uL Sodium 136 L (137-145) mmol/L Potassium 3.3 L (3.5-5.1) mmol/L Chloride (98-107) mmol/L Glucose (74-99) mg/dL POC Glucose (mg/dL) (75-99) mg/dL Plasma Lactic Acid Frederick 2.9 H* (0.7-2.0) mmol/L Calcium 8.1 L (8.4-10.2) mg/dL Magnesium (1.6-2.3) mg/dL Alkaline Phosphatase 143 H (38-126) U/L Total Protein 5.1 L (6.3-8.2) g/dL Albumin 2.7 L (3.5-5.0) g/dL Urine Appearance (Clear) Ur Specific [place] (1.001-1.035) Urine Protein (Negative) Urine Blood (Negative) Urine Nitrite (Negative) Ur Leukocyte Esterase (Negative) Urine RBC (0-5) /hpf Urine WBC (0-5) /hpf Urine Bacteria (None) /hpf Urine Mucus (None) /hpf Microbiology - Last 24 Hours (Table) 04/17/19 17:30 Urine Culture - Preliminary Urine,Voided Assessment and Plan Assessment: Patient with significant leukocytosis on admission in this patient predominant symptom has been her nausea vomiting and urinary frequency and burning likely secondary to symptomatic urinary tract infection and likely from enteric gram- negative pathogen the abdominal wound looks clean yesterday at the wound care center with no evidence of any purulence or cellulitis and CT failed to reveal any abdominal abscess clinically doubt the source of infection (1) Surgical wound present Current Visit: Yes Status: Acute Code(s): T14.8XXA - OTHER INJURY OF UNS PECIFIED BODY REGION, INITIAL ENCOUNTER SNOMED Code(s): 779427457 (2) Urinary tract infection Current Visit: Yes Status: Acute Code(s): N39.0 - URINARY TRACT INFECTION, SITE NOT SPECIFIED SNOMED Code(s): 61463146 Plan: 1-we will start the patient cefepime 2 g every 12 hours 2-discontinue vancomycin with clinical suspicion for gram-positive infection 3-local wound care to the abdominal wound with wound VAC continuous pressure of 125 mmHg to be changed Monday and Monday We will follow on clinical condition and cultures to further adjust medication if needed Thank you for this consultation we will follow the patient along with you Time with Patient: Greater than 30
[2019-04-19] MEDS: KETOROLAC 30 MG/ML 1 ML VIAL IVP PRN (00:28)
[2019-04-19] MEDS: LEVOTHYROXINE 88 MCG TAB PO SCH (05:35)
[2019-04-19] MEDS: FUROSEMIDE 40 MG TAB PO SCH ×2 (05:35→17:24)
[2019-04-19] MEDS: SODIUM CHLORIDE 0.9% 1,000 ML IV SCH ×2 (05:36→13:49)
[2019-04-19 06:45] LABS: Glucose,Whole Blood 101 mg/dL (75-99)
[2019-04-19] MEDS ORDERED: VANCOMYCIN TROUGH DUE 1 EACH MISC MISCELLANE ONE (07:00)
[2019-04-19] MEDS: INSULIN ASPART (NovoLOG) 100 UNIT/ML VIAL SQ SCH ×4 (07:14→20:50)
[2019-04-19 08:25] LABS: African American GFR (CKD) >90 (>60 ml/min/1.73 sqM); Non-African American GFR(CKD) 89 (>60 ml/min/1.73 sqM)
[2019-04-19] MEDS: PANTOPRAZOLE 40 MG/10 ML VIAL IV SCH (09:32)
[2019-04-19] MEDS: MAGNESIUM OXIDE 400 MG TAB PO SCH ×3 (09:32→20:28)
[2019-04-19] MEDS: CEFEPIME 2 GM in SODIUM CHLORIDE 0.9% 100 ML IVPB SCH ×2 (09:32→20:28)
[2019-04-19] MEDS: LOSARTAN 50 MG TAB PO SCH (09:33)
[2019-04-19] MEDS: CILOSTAZOL 100 MG TAB PO SCH (09:33)
[2019-04-19] MEDS: AMIODARONE 100 MG TAB PO SCH (09:33)
[2019-04-19] MEDS: oxyCODONE ER 15 MG TAB.ER.12H PO SCH ×2 (09:33→20:28)
[2019-04-19] MEDS: metFORMIN 500 MG TAB PO SCH ×2 (09:33→17:25)
[2019-04-19] MEDS: predniSONE 10 MG TAB PO SCH (09:34)
[2019-04-19] MEDS: METOPROLOL TARTRATE 50 MG TAB PO SCH ×2 (09:34→17:24)
[2019-04-19] MEDS: LACTOBACILLUS ACIDOPH & BULGAR 1 EACH PACKET PO SCH ×2 (09:34→17:25)
[2019-04-19] MEDS: NYSTATIN 100,000UNIT/GM CREAM 30 GM TUBE TOPICAL SCH ×2 (09:34→20:29)
[2019-04-19] MEDS: ONDANSETRON 4 MG/2 ML VIAL IVP PRN (11:18)
[2019-04-19 12:09] LABS: Glucose,Whole Blood 158 mg/dL (75-99)
--- NOTE | 2019-04-19 13:09 | P.PN ---
Progress Note - Text Progress Note Date: 04/19/19 the patient has some complaints of nausea. She denies any vomiting. On exam her vital signs are stable. Her abdomen soft. Wound is clean. Patient to have local wound care. She'll be discharged home per medicine.
[2019-04-19 17:14] LABS: Glucose,Whole Blood 162 mg/dL (75-99)
[2019-04-19] MEDS: FERROUS SULFATE 325 MG TAB PO SCH (17:24)
[2019-04-19] MEDS: POTASSIUM CHLORIDE ER 20 MEQ TAB.ER PO SCH (17:25)
--- NOTE | 2019-04-19 19:52 | P.PN ---
Progress Note - Text Progress Note Date: 04/18/19 Chief Complaint: Abdominal pain History of presenting complaint: This is a pleasant 74-year-old patient of Dr. Alcala. Chronic stable medical conditions include atrial fibrillation, coronary artery disease, diabetes, hyperlipidemia, hypertension, osteoarthritis, hypothyroid, peripheral arterial disease. December 2017 had a "coronary bypass, complicated by ischemic bowel resulting in the ostomy and a wound VAC. Patient subsequently had intra- abdominal abscess and required protracted course of antibiotics. March 2018 had an abscess and patient did have a MASTER drain in place for the same. December 2018 patient had the incisional hernia with mesh placed. By Dr. Montoya. Patient did undergo admission for significant drainage from MASTER drain. admitted on March 03 and discharged on March 13 and during that admission infected mesh was removed. Patient had a wound VAC placed. Patient was discharged on March 13 with 2 week course of IV daptomycin, IV Invanz, and Bactrim. Wound cultures had grown S maltophilia, VRE, staph epidermidis. Patie nt April 01 admitted with delirium. Because of OxyContin was cut back. Patient yesterday had a follow-up appointment with Dr. Montoya. Was doing fine. Her dressing has been placed over the abdominal wound. Wound VAC has been temporarily held off. Then patient started of with abdominal pain across the upper abdomen yesterday. Followed by several bouts of vomiting. Patient did see Dr. costa the office today. And decision was made to send out of the ER. Patient been having some urinary frequency for last 2 days. No dysuria. No obvious fever and chills. Prior to that patient's been tolerating a diet rather well. Has been using a walker and walking close to 60-70 feet. Admitted with acute UTI. Does not appear to have any acute abdominal issue. Today-feeling better. Did tolerate some diet. slight nausea. No abdominal pain. Review of systems: Was done for constitutional, cardiovascular, GI, pulmonary. relevant finding as above Current medications reviewed, and today's electronic records Physical examination: VITAL SIGNS: 98.3, 77, 16, 11 , 98% room air GENERAL: Laying in bed,, comfortable EYES: Pupils equal. Conjunctiva pale HEENT: External appearance of nose and ears normal, oral cavity dry NECK: JVD unable to assess; masses not palpable. HEART: First and second heart sounds are normal; some edema. LUNGS: Respiratory rate normal; decreased breath sounds. ABDOMEN: Soft, dressing over the abdomen. Minimal tenderness, no guarding or rigidity, liver spleen not palpable, PSYCH: AAO 3, motor affect normal NEUROLOGICAL: Cranial nerves grossly intact, SENSATION grossly intact INVESTIGATIONS, reviewed in the clinical context: White count 11.4 hemoglobin 8.9 platelets 507 creatinine 0.66 Previous testing White count 24.6 hemoglobin 11 platelets 671 potassium 3.2 creatinine 0.75 lactic acid 3.5. UA positive Patient's white count was 11.1 on March 31 Computed tomography scan of the abdomen-open anterior abdominal wound, distal colonic fecal debris. 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 Urine cultures are pending. Patient informed me that Dr. Montoya's of the wound VAC can go back on. Await the same. Diet is being advanced.
--- NOTE | 2019-04-19 20:03 | P.PN ---
Progress Note - Text Progress Note Date: 04/19/19 Chief Complaint: UTI History of presenting complaint: This is a pleasant 74-year-old patient of Dr. Alcala. Chronic stable medical conditions include atrial fibrillation, coronary artery disease, diabetes, hyperlipidemia, hypertension, osteoarthritis, hypothyroid, peripheral arterial disease. December 2017 had a "coronary bypass, complicated by ischemic bowel resulting in the ostomy and a wound VAC. Patient subsequently had intra- abdominal abscess and required protracted course of antibiotics. March 2018 had an abscess and patient did have a MASTER drain in place for the same. December 2018 patient had the incisional hernia with mesh placed. By Dr. Cresencio carter. Patient did undergo admission for significant drainage from MASTER drain. admitted on March 03 and discharged on March 13 and during that admission infected mesh was removed. Patient had a wound VAC placed. Patient was discharged on March 13 with 2 week course of IV daptomycin, IV Invanz, and Bactrim. Wound cultures had grown S maltophilia, VRE, staph epidermidis. Patient April 01 admitted with delirium. Because of OxyContin was cut back. Patient yesterday had a follow-up appointment with Dr. Montoya. Was doing fine. Her dressing has been placed over the abdominal wound. Wound VAC has been temporarily held off. Then patient started of with abdominal pain across the upper abdomen yesterday. Followed by several bouts of vomiting. Patient did see Dr. costa the office today. And decision was made to send out of the ER. Patient been having some urinary frequency for last 2 days. No dysuria. No obvious fever and chills. Prior to that patient's been tolerating a diet rather well. Has been using a walker and walking close to 60-70 feet. Admitted with acute UTI. Does not appear to have any acute abdominal issue. Today-occasional nausea. Oral intake okay. No abdominal pain. No fever. Wound VAC is placed again. Review of systems: Was done for constitutional, cardiovascular, GI, pulmonary. relevant finding as above Active Medications Acetaminophen (Tylenol Tab) 650 mg PO Q6HR PRN PRN Reason: Mild Pain or Fever > 100.5 Last Admin: 04/17/19 22:12 Dose: 650 mg Documented by: Amiodarone HCl (Cordarone) 100 mg PO DAILY@0800 WILLIAM Last Admin: 04/19/19 09:33 Dose: 100 mg Documented by: Atorvastatin Calcium (Lipitor) 40 mg PO HS@2100 [facility] Last Admin: 04/18/19 20:53 Dose: 40 mg Documented by: Bisacodyl (Dulcolax) 10 mg RECTAL DAILY PRN PRN Reason: Constipation Cilostazol (Pletal) 100 mg PO DAILY@0800 [facility] Last Admin: 04/19/19 09:33 Dose: 100 mg Documented by: Duloxetine HCl (Cymbalta) 60 mg PO HS@2100 [facility] Last Admin: 04/18/19 20:53 Dose: 60 mg Documented by: Ergocalciferol (Vitamin D2) 50,000 unit PO COHEN@1700 WILLIAM Ferrous Sulfate (Feosol) 325 mg PO DAILY@1700 [facility] Last Admin: 04/19/19 17:24 Dose: 325 mg Documented by: Furosemide (Lasix) 40 mg PO BID@0600,1400 [facility] Last Admin: 04/19/19 17:24 Dose: 40 mg Documented by: Cefepime HCl 2 gm/ Sodium (Chloride) 100 mls @ 200 mls/hr IVPB Q12HR [facility] Last Admin: 04/19/19 09:32 Dose: 200 mls/hr Documented by: Ibuprofen (Motrin) 400 mg PO Q6HR PRN PRN Reason: Mild Pain or Fever > 100.5 Insulin Aspart (Novolog) 0 unit SQ ACHS [facility]; Protocol Last Admin: 04/19/19 17:30 Dose: 1 unit Documented by: Ketorolac Tromethamine (Toradol) 15 mg IVP Q6HR PRN PRN Reason: Moderate Pain Stop: 04/22/19 18:27 Last Admin: 04/19/19 00:28 Dose: 15 mg Documented by: Lactobacillus Acidoph/Bulgaricus (Lactinex) 1 each PO BID@0800,1700 [facility] Last Admin: 04/19/19 17:25 Dose: 1 each Documented by: Latanoprost (Xalatan 0.005%) 1 drops BOTH EYES HS@2100 [facility] Last Admin: 04/18/19 20:53 Dose: 1 drops Documented by: Levothyroxine Sodium (Synthroid) 88 mcg PO DAILY@0600 [facility] Last Admin: 04/19/19 05:35 Dose: 88 mcg Documented by: Loperamide HCl (Imodium) 2 mg PO BID PRN PRN Reason: Diarrhea Losartan Potassium (Cozaar) 50 mg PO DAILY@0800 [facility] Last Admin: 04/19/19 09:33 Dose: 50 mg Documented by: Magnesium Hydroxide (Milk Of Magnesia) 7,200 mg PO DAILY PRN PRN Reason: Constipation Magnesium Oxide (Mag-Ox) 400 mg PO TID [facility] Last Admin: 04/19/19 17:25 Dose: 400 mg Documented by: Metformin HCl (Glucophage) 500 mg PO BID@0800,1700 [facility] Last Admin: 04/19/19 17:25 Dose: 500 mg Documented by: Metoprolol Tartrate (Lopressor) 50 mg PO BID@0800,1700 [facility] Last Admin: 04/19/19 17:24 Dose: 50 mg Documented by: Morphine Sulfate (Morphine Sulfate (Inj)) 4 mg IV Q4HR PRN PRN Reason: Severe Pain Naloxone HCl (Narcan) 0.2 mg IV Q2M PRN PRN Reason: Opioid Reversal Nystatin (Mycostatin Cream) 1 applic TOPICAL BID@0800,2100 [facility] Last Admin: 04/19/19 09:34 Dose: Not Given Documented by: Ondansetron HCl (Zofran) 4 mg IVP Q8HR PRN PRN Reason: Nausea And Vomiting Last Admin: 04/19/19 11:18 Dose: 4 mg Documented by: Ondansetron HCl (Zofran) 8 mg PO Q12H PRN PRN Reason: Nausea Oxycodone HCl (Oxycontin 15mg E.R.) 15 mg PO Q12H [facility] Last Admin: 04/19/19 09:33 Dose: 15 mg Documented by: Pantoprazole Sodium (Protonix) 40 mg IV DAILY [facility] Last Admin: 04/19/19 09:32 Dose: 40 mg Documented by: Potassium Chloride (K-Dur 20) 40 meq PO DAILY@1700 [facility] Last Admin: 04/19/19 17:25 Dose: 40 meq Documented by: Prednisone () 10 mg PO DAILY@0800 [facility] Last Admin: 04/19/19 09:34 Dose: 10 mg Documented by: Sodium Biphosphate/Sodium Phosphate (Fleet Adult) 133 ml RECTAL DAILY PRN PRN Reason: Constipation Physical examination: VITAL SIGNS: 98.6, 81, 20, 134/77, 98% room air GENERAL: Laying in bed,, comfortable EYES: Pupils equal. Conjunctiva pale HEENT: External appearance of nose and ears normal, oral cavity dry NECK: JVD unable to assess; masses not palpable. HEART: First and second heart sounds are normal; some edema. LUNGS: Respiratory rate normal; decreased breath sounds. ABDOMEN: Soft, wound VAC. No tenderness, , liver spleen not palpable, PSYCH: AAO 3, motor affect normal NEUROLOGICAL: Cranial nerves grossly intact, SENSATION grossly intact INVESTIGATIONS, reviewed in the clinical context: White count 11.4 hemoglobin 8.9 platelets 507 creatinine 0.66 Previous testing White count 24.6 hemoglobin 11 platelets 671 potassium 3.2 creatinine 0.75 lactic acid 3.5. UA positive Patient's white count was 11.1 on March 31 Computed tomography scan of the abdomen-open anterior abdominal wound, distal colonic fecal debris. 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 Pending urine cultures. Otherwise clinically stable. He will return to F once cultures returned. Antibiotics can be determined. Discussed with patient.
[2019-04-19] MEDS: DULoxetine HCL 60 MG CAPSULE.DR PO SCH (20:28)
[2019-04-19] MEDS: ATORVASTATIN 40 MG TAB PO SCH (20:28)
[2019-04-19] MEDS: LATANOPROST 0.005% OPHTH DROPS 2.5 ML BTL BOTH EYES SCH (20:29)
[2019-04-19 20:38] LABS: Glucose,Whole Blood 194 mg/dL (75-99)
[2019-04-20] MEDS: LEVOTHYROXINE 88 MCG TAB PO SCH (06:04)
[2019-04-20] MEDS: FUROSEMIDE 40 MG TAB PO SCH ×2 (06:04→14:34)
[2019-04-20 06:55] LABS: Glucose,Whole Blood 121 mg/dL (75-99)
[2019-04-20] MEDS: INSULIN ASPART (NovoLOG) 100 UNIT/ML VIAL SQ SCH ×4 (07:09→21:02)
[2019-04-20] MEDS: MAGNESIUM OXIDE 400 MG TAB PO SCH ×3 (07:15→20:38)
[2019-04-20] MEDS: oxyCODONE ER 15 MG TAB.ER.12H PO SCH ×2 (07:15→20:38)
[2019-04-20] MEDS: METOPROLOL TARTRATE 50 MG TAB PO SCH ×2 (07:15→17:10)
[2019-04-20] MEDS: LOSARTAN 50 MG TAB PO SCH (07:15)
[2019-04-20] MEDS: predniSONE 10 MG TAB PO SCH (07:15)
[2019-04-20] MEDS: CILOSTAZOL 100 MG TAB PO SCH (07:16)
[2019-04-20] MEDS: AMIODARONE 100 MG TAB PO SCH (07:16)
[2019-04-20] MEDS: LACTOBACILLUS ACIDOPH & BULGAR 1 EACH PACKET PO SCH ×2 (07:17→17:11)
[2019-04-20] MEDS: NYSTATIN 100,000UNIT/GM CREAM 30 GM TUBE TOPICAL SCH ×2 (07:17→20:40)
[2019-04-20] MEDS: metFORMIN 500 MG TAB PO SCH ×2 (07:17→17:10)
[2019-04-20] MEDS: PANTOPRAZOLE 40 MG/10 ML VIAL IV SCH (07:18)
[2019-04-20] MEDS: CEFEPIME 2 GM in SODIUM CHLORIDE 0.9% 100 ML IVPB SCH ×2 (07:18→20:39)
[2019-04-20 07:40] LABS: African American GFR (CKD) >90 (>60 ml/min/1.73 sqM); Non-African American GFR(CKD) >90 (>60 ml/min/1.73 sqM)
--- NOTE | 2019-04-20 07:47 | PN ---
PROGRESS NOTE DATE OF SERVICE: 04/19/2019. REASON FOR FOLLOWUP: 1. Gram-negative infection. 2. Abdominal wound, post surgical. INTERVAL HISTORY: The patient is currently afebrile. Patient is breathing comfortably. The patient denies having any chest pain or shortness of breath or cough. No nausea, vomiting. No abdominal pain. No diarrhea. PHYSICAL EXAMINATION: Blood pressure is 110/73 with a pulse of 71, temperature 97.9. She is 100% on room air. General description is an elderly female lying in bed in no distress. Respiratory system: Unlabored breathing. Clear to auscultation anteriorly. Heart S1, S2. Regular rate and rhythm. Abdomen soft, no tenderness. LABS: No new labs have been obtained today. Urine showing a gram-negative. Blood culture has been negative. DIAGNOSTIC IMPRESSION AND PLAN: 1. Patient with gram-negative urinary tract infection in this patient admitted to the hospital with nausea, vomiting and urinary symptoms. Currently covered with cefepime to continue while waiting for the culture to finalize to determine discharge antibiotic. 2. Abdominal wound, postsurgical. Local care with wound VAC. Monitor clinical course closely. MMODL / IJN: [id number] /
--- NOTE | 2019-04-20 11:26 | P.PN ---
Progress Note - Text Progress Note Date: 04/20/19 the patient feels well. She's been tolerating diet. She denies a significant abdominal pain. On exam her vital signs are stable. Her abdomen soft. Wound is stable. Patiently discharged o [facility]. Her UTIs resolved.
[2019-04-20 11:47] LABS: Glucose,Whole Blood 266 mg/dL (75-99)
[2019-04-20 16:43] LABS: Glucose,Whole Blood 171 mg/dL (75-99)
[2019-04-20] MEDS: POTASSIUM CHLORIDE ER 20 MEQ TAB.ER PO SCH (17:10)
[2019-04-20] MEDS: FERROUS SULFATE 325 MG TAB PO SCH (17:10)
[2019-04-20 20:32] LABS: Glucose,Whole Blood 147 mg/dL (75-99)
[2019-04-20] MEDS: ATORVASTATIN 40 MG TAB PO SCH (20:38)
[2019-04-20] MEDS: DULoxetine HCL 60 MG CAPSULE.DR PO SCH (20:39)
[2019-04-20] MEDS: LATANOPROST 0.005% OPHTH DROPS 2.5 ML BTL BOTH EYES SCH (21:03)
--- NOTE | 2019-04-20 22:35 | P.PN ---
Progress Note - Text Progress Note Date: 04/20/19 Chief Complaint: UTI History of presenting complaint: This is a pleasant 74-year-old patient of Dr. Alcala. Chronic stable medical conditions include atrial fibrillation, coronary artery disease, diabetes, hyperlipidemia, hypertension, osteoarthritis, hypothyroid, peripheral arterial disease. December 2017 had a "coronary bypass, complicated by ischemic bowel resulting in the ostomy and a wound VAC. Patient subsequently had intra- abdominal abscess and required protracted course of antibiotics. March 2018 had an abscess and patient did have a MASTER drain in place for the same. December 2018 patient had the incisional hernia with mesh placed. By Dr. Cresencio carter. Patient did undergo admission for significant drainage from MASTER drain. admitted on March 03 and discharged on March 13 and during that admission infected mesh was removed. Patient had a wound VAC placed. Patient was discharged on March 13 with 2 week course of IV daptomycin, IV Invanz, and Bactrim. Wound cultures had grown S maltophilia, VRE, staph epidermidis. Patient April 01 admitted with delirium. Because of OxyContin was cut back. Patient yesterday had a follow-up appointment with Dr. Montoya. Was doing fine. Her dressing has been placed over the abdominal wound. Wound VAC has been temporarily held off. Then patient started of with abdominal pain across the upper abdomen yesterday. Followed by several bouts of vomiting. Patient did see Dr. costa the office today. And decision was made to send out of the ER. Patient been having some urinary frequency for last 2 days. No dysuria. No obvious fever and chills. Prior to that patient's been tolerating a diet rather well. Has been using a walker and walking close to 60-70 feet. Admitted with acute UTI. Does not appear to have any acute abdominal issue. Today-feeling better. Wound VAC in place. Urine culture pending. Tolerating diet. Review of systems: Was done for constitutional, cardiovascular, GI, pulmonary. relevant finding as above Active Medications Acetaminophen (Tylenol Tab) 650 mg PO Q6HR PRN PRN Reason: Mild Pain or Fever > 100.5 Last Admin: 04/17/19 22:12 Dose: 650 mg Documented by: Amiodarone HCl (Cordarone) 100 mg PO DAILY@0800 [facility] Last Admin: 04/20/19 07:16 Dose: 100 mg Documented by: Atorvastatin Calcium (Lipitor) 40 mg PO HS@2100 [facility] Last Admin: 04/20/19 20:38 Dose: 40 mg Documented by: Bisacodyl (Dulcolax) 10 mg RECTAL DAILY PRN PRN Reason: Constipation Cilostazol (Pletal) 100 mg PO DAILY@0800 [facility] Last Admin: 04/20/19 07:16 Dose: 100 mg Documented by: Duloxetine HCl (Cymbalta) 60 mg PO HS@2100 [facility] Last Admin: 04/20/19 20:39 Dose: 60 mg Documented by: Ergocalciferol (Vitamin D2) 50,000 unit PO COHEN@1700 [facility] Ferrous Sulfate (Feosol) 325 mg PO DAILY@1700 [facility] Last Admin: 04/20/19 17:10 Dose: 325 mg Documented by: Furosemide (Lasix) 40 mg PO BID@0600,1400 [facility] Last Admin: 04/20/19 14:34 Dose: 40 mg Documented by: Cefepime HCl 2 gm/ Sodium (Chloride) 100 mls @ 200 mls/hr IVPB Q12HR [facility] Last Admin: 04/20/19 20:39 Dose: 200 mls/hr Documented by: Ibuprofen (Motrin) 400 mg PO Q6HR PRN PRN Reason: Mild Pain or Fever > 100.5 Insulin Aspart (Novolog) 0 unit SQ ACHS [facility]; Protocol Last Admin: 04/20/19 21:02 Dose: Not Given Documented by: Ketorolac Tromethamine (Toradol) 15 mg IVP Q6HR PRN PRN Reason: Moderate Pain Stop: 04/22/19 18:27 Last Admin: 04/19/19 00:28 Dose: 15 mg Documented by: Lactobacillus Acidoph/Bulgaricus (Lactinex) 1 each PO BID@0800,1700 [facility] Last Admin: 04/20/19 17:11 Dose: 1 each Documented by: Latanoprost (Xalatan 0.005%) 1 drops BOTH EYES HS@2100 [facility] Last Admin: 04/20/19 21:03 Dose: Not Given Documented by: Levothyroxine Sodium (Synthroid) 88 mcg PO DAILY@0600 [facility] Last Admin: 04/20/19 06:04 Dose: 88 mcg Documented by: Loperamide HCl (Imodium) 2 mg PO BID PRN PRN Reason: Diarrhea Losartan Potassium (Cozaar) 50 mg PO DAILY@0800 [facility] Last Admin: 04/20/19 07:15 Dose: 50 mg Documented by: Magnesium Hydroxide (Milk Of Magnesia) 7,200 mg PO DAILY PRN PRN Reason: Constipation Magnesium Oxide (Mag-Ox) 400 mg PO TID [facility] Last Admin: 04/20/19 20:38 Dose: 400 mg Documented by: Metformin HCl (Glucophage) 500 mg PO BID@0800,1700 [facility] Last Admin: 04/20/19 17:10 Dose: 500 mg Documented by: Metoprolol Tartrate (Lopressor) 50 mg PO BID@0800,1700 [facility] Last Admin: 04/20/19 17:10 Dose: 50 mg Documented by: Morphine Sulfate (Morphine Sulfate (Inj)) 4 mg IV Q4HR PRN PRN Reason: Severe Pain Naloxone HCl (Narcan) 0.2 mg IV Q2M PRN PRN Reason: Opioid Reversal Nystatin (Mycostatin Cream) 1 applic TOPICAL BID@0800,2100 [facility] Last Admin: 04/20/19 20:40 Dose: Not Given Documented by: Ondansetron HCl (Zofran) 4 mg IVP Q8HR PRN PRN Reason: Nausea And Vomiting Last Admin: 04/19/19 11:18 Dose: 4 mg Documented by: Ondansetron HCl (Zofran) 8 mg PO Q12H PRN PRN Reason: Nausea Oxycodone HCl (Oxycontin 15mg E.R.) 15 mg PO Q12H [facility] Last Admin: 04/20/19 20:38 Dose: 15 mg Documented by: Pantoprazole Sodium (Protonix) 40 mg PO DAILY [facility] Potassium Chloride (K-Dur 20) 40 meq PO DAILY@1700 [facility] Last Admin: 04/20/19 17:10 Dose: 40 meq Documented by: Prednisone () 10 mg PO DAILY@0800 [facility] Last Admin: 04/20/19 07:15 Dose: 10 mg Documented by: Sodium Biphosphate/Sodium Phosphate (Fleet Adult) 133 ml RECTAL DAILY PRN PRN Reason: Constipation Physical examination: VITAL SIGNS:98.3 80, 16, 132/75, 96% room air GENERAL: sitting up, EYES: Pupils equal. Conjunctiva pale HEENT: External appearance of nose and ears normal, oral cavity dry NECK: JVD unable to assess; masses not palpable. HEART: First and second heart sounds are normal; some edema. LUNGS: Respiratory rate normal; decreased breath sounds. ABDOMEN: Soft, wound VAC. No tenderness, , liver spleen not palpable, PSYCH: AAO 3, motor affect normal NEUROLOGICAL: Cranial nerves grossly intact, SENSATION grossly intact INVESTIGATIONS, reviewed in the clinical context: White count 11.4 hemoglobin 8.9 platelets 507 creatinine 0.66 urine wzjzyao-kqzn-yddnkbra bacilli, culture pending Previous testing White count 24.6 hemoglobin 11 platelets 671 potassium 3.2 creatinine 0.75 lactic acid 3.5. UA positive Patient's white count was 11.1 on March 31 Computed tomography scan of the abdomen-open anterior abdominal wound, distal colonic fecal debris. 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 Pending urine cultures. Otherwise clinically stable. He will return to [facility] once cultures returned. discussed with [employer]. Authorization pending
--- NOTE | 2019-04-20 22:49 | PN ---
PROGRESS NOTE DATE OF SERVICE: 04/20/2019 REASON FOR FOLLOWUP: 1. Urinary tract infection gram-negative. 2. Abdominal wound. INTERVAL HISTORY: The patient is currently afebrile. The patient is breathing comfortably. The patient denies having any chest pain or shortness of breath or cough. No nausea, no vomiting. No abdominal pain. No diarrhea. PHYSICAL EXAMINATION: Blood pressure is 127/84 with a pulse of 68. Temperature 97.8. She is 99% on room air. General description is an elderly female up in the chair in no distress. Respiratory system: Unlabored breathing, clear to auscultation anteriorly. Heart S1, S2. Regular rate and rhythm. Abdomen soft, no tenderness. LABS: Urine is gram-negative bacilli after 3 days not identified. Blood cultures have been negative. DIAGNOSTIC IMPRESSION AND PLAN: 1. Patient admitted to the hospital with nausea, vomiting, urinary frequency, likely secondary to symptomatic urinary tract infection. Urine showing a gram-negative bacilli with ID sensitivity pending. Patient is currently on cefepime with discharge antibiotic will depend on the culture report. 2. The patient abdominal postsurgical. Continue local wound care with wound VAC as previously advised. 3. Continue supportive care. MMODL / IJN: [id number] /
[2019-04-21] MEDS: KETOROLAC 30 MG/ML 1 ML VIAL IVP PRN (00:17)
[2019-04-21] MEDS: FUROSEMIDE 40 MG TAB PO SCH ×2 (04:35→14:47)
[2019-04-21] MEDS: LEVOTHYROXINE 88 MCG TAB PO SCH (04:36)
[2019-04-21 05:08] LABS: Appearance,Urine Clear (Clear); Bilirubin,Urine Negative (Negative); Blood,Urine Negative (Negative); Color,Urine Yellow; Glucose,Urine (UA) Negative (Negative); Hyaline Casts,Urine 4 /lpf (0-2); Ketones,Urine Negative (Negative); Leukocyte Esterase,Urine Small (Negative); Mucus,Urine Rare /hpf; Nitrite,Urine Negative (Negative); Protein,Urine Trace (Negative); RBC,Urine 1 /hpf (0-5); Specific Gravity,Urine 1.013 (1.001-1.035); Squamous Epithelial Cell,Urine 1 /hpf (0-4); Urobilinogen,Urine <2.0 mg/dL (<2.0); WBC,Urine 8 /hpf (0-5)
[2019-04-21] MEDS: ONDANSETRON 4 MG/2 ML VIAL IVP PRN (06:24)
[2019-04-21 06:46] LABS: Anisocytosis Slight; Basophils # (A) 0.1 k/uL (0-0.2); Basophils % (A) 1 %; Eosinophils # (A) 0.4 k/uL (0-0.7); Eosinophils % (A) 3 %; HCT 26.9 % (34.0-46.0); HGB 8.6 gm/dL (11.4-16.0); Hypochromasia Marked; Lymphocytes # (A) 2.1 k/uL (1.0-4.8); Lymphocytes % (A) 17 %; MCH 25.4 pg (25.0-35.0); MCHC 31.9 g/dL (31.0-37.0); MCV 79.4 fL (80.0-100.0); Mean Platelet Volume 6.8; Microcytosis Slight; Monocytes # (A) 0.8 k/uL (0-1.0); Monocytes % (A) 6 %; Neutrophils # (A) 8.4 k/uL (1.3-7.7); Neutrophils % (A) 71 %; Platelet Count 540 k/uL (150-450); Poikilocytosis Slight; RBC 3.39 m/uL (3.80-5.40); RDW 16.9 % (11.5-15.5); WBC 11.9 k/uL (3.8-10.6)
[2019-04-21 06:58] LABS: Glucose,Whole Blood 98 mg/dL (75-99)
[2019-04-21 07:26] LABS: African American GFR (CKD) >90 (>60 ml/min/1.73 sqM); Anion Gap 5 mmol/L; Blood Urea Nitrogen 8 mg/dL (7-17); C Reactive Protein 37.6 mg/L (<10.0); Calcium 8.6 mg/dL (8.4-10.2); Carbon Dioxide 29 mmol/L (22-30); Chloride 104 mmol/L (98-107); Glucose 84 mg/dL (74-99); Non-African American GFR(CKD) 89 (>60 ml/min/1.73 sqM); Potassium 3.6 mmol/L (3.5-5.1); Sodium 138 mmol/L (137-145)
[2019-04-21] MEDS: INSULIN ASPART (NovoLOG) 100 UNIT/ML VIAL SQ SCH ×4 (07:52→20:24)
[2019-04-21] MEDS: PANTOPRAZOLE 40 MG TABLET PO SCH (07:58)
[2019-04-21] MEDS: predniSONE 10 MG TAB PO SCH (07:58)
[2019-04-21] MEDS: MAGNESIUM OXIDE 400 MG TAB PO SCH ×3 (07:58→20:20)
[2019-04-21] MEDS: LOSARTAN 50 MG TAB PO SCH (07:58)
[2019-04-21] MEDS: METOPROLOL TARTRATE 50 MG TAB PO SCH ×2 (07:58→17:19)
[2019-04-21] MEDS: oxyCODONE ER 15 MG TAB.ER.12H PO SCH ×2 (07:58→20:20)
[2019-04-21] MEDS: AMIODARONE 100 MG TAB PO SCH (07:59)
[2019-04-21] MEDS: metFORMIN 500 MG TAB PO SCH ×2 (07:59→17:19)
[2019-04-21] MEDS: LACTOBACILLUS ACIDOPH & BULGAR 1 EACH PACKET PO SCH ×2 (07:59→17:19)
[2019-04-21] MEDS: NYSTATIN 100,000UNIT/GM CREAM 30 GM TUBE TOPICAL SCH ×2 (08:00→20:23)
[2019-04-21] MEDS: CILOSTAZOL 100 MG TAB PO SCH (08:00)
[2019-04-21] MEDS: ERTAPENEM 1 GM in SODIUM CHLORIDE 0.9% 50 ML IVPB SCH (09:43)
[2019-04-21 11:52] LABS: Glucose,Whole Blood 230 mg/dL (75-99)
--- NOTE | 2019-04-21 14:19 | P.PN ---
Progress Note - Text Progress Note Date: 04/21/19 the patient feels better. Apparently her antibiotics for her urinary tract infection have been changed. She denies any significant abdominal pain. On exam her vital signs are stable. Her abdomen is soft. Wound is clean. Recent UTI appears to be treated. Patiently discharged home per medicine and infectious disease once her antibiotics flexion has been made
--- NOTE | 2019-04-21 16:50 | PN ---
PROGRESS NOTE DATE OF SERVICE: 04/21/2019. REASON FOR FOLLOWUP: 1. Multidrug resistant urinary tract infection. 2. Abdominal wound. INTERVAL HISTORY: The patient is currently afebrile. Patient has been breathing comfortably. The patient denies having any chest pain or any cough. No further nausea. No vomiting. No diarrhea. No abdominal pain. PHYSICAL EXAMINATION: Blood pressure 99/64 with a pulse of 74, temperature of 97.9. She is 94% on room air. General description is an elderly female, lying in bed in no distress. Respiratory system: Unlabored breathing and is clear to auscultation anteriorly. Heart S1, S2. Regular rate and rhythm. Abdomen soft, no tenderness. LABS: Hemoglobin 8.3, white count 11.9 with a BUN of 8, creatinine 0.65. The repeat UA is much clearer compared to initial UA. DIAGNOSTIC IMPRESSION AND PLAN: 1. Patient admitted to the hospital with urinary symptoms, likely urinary tract infection, could have been the Klebsiella, the infected pathogen as the patient clinically improved without getting treatment for the ESBL the patient is currently growing in the urine. She will get a dose of Invanz today and one tomorrow which should be more than enough. Antibiotic can be subsequently discontinued. She has of her midline which was discontinued. No need for any further midline or PICC line at this point. 2. Abdominal wound. Local care to continue with the wound VAC and close outpatient followup. MMODL / IJN: [id number] /
[2019-04-21 16:55] LABS: Glucose,Whole Blood 199 mg/dL (75-99)
[2019-04-21] MEDS ORDERED: ERGOCALCIFEROL 50,000 UNIT CAP PO SCH (17:00)
[2019-04-21] MEDS: POTASSIUM CHLORIDE ER 20 MEQ TAB.ER PO SCH (17:18)
[2019-04-21] MEDS: FERROUS SULFATE 325 MG TAB PO SCH (17:18)
[2019-04-21] MEDS: ATORVASTATIN 40 MG TAB PO SCH (20:20)
[2019-04-21] MEDS: DULoxetine HCL 60 MG CAPSULE.DR PO SCH (20:21)
[2019-04-21] MEDS: LATANOPROST 0.005% OPHTH DROPS 2.5 ML BTL BOTH EYES SCH (20:23)
--- NOTE | 2019-04-21 21:43 | P.PN ---
Progress Note - Text Progress Note Date: 04/21/19 Chief Complaint: UTI History of presenting complaint: This is a pleasant 74-year-old patient of Dr. Alcala. Chronic stable medical conditions include atrial fibrillation, coronary artery disease, diabetes, hyperlipidemia, hypertension, osteoarthritis, hypothyroid, peripheral arterial disease. December 2017 had a "coronary bypass, complicated by ischemic bowel resulting in the ostomy and a wound VAC. Patient subsequently had intra- abdominal abscess and required protracted course of antibiotics. March 2018 had an abscess and patient did have a MASTER drain in place for the same. December 2018 patient had the incisional hernia with mesh placed. By Dr. Cresencio carter. Patient did undergo admission for significant drainage from MASTER drain. admitted on March 03 and discharged on March 13 and during that admission infected mesh was removed. Patient had a wound VAC placed. Patient was discharged on March 13 with 2 week course of IV daptomycin, IV Invanz, and Bactrim. Wound cultures had grown S maltophilia, VRE, staph epidermidis. Patient April 01 admitted with delirium. Because of OxyContin was cut back. Patient yesterday had a follow-up appointment with Dr. Montoya. Was doing fine. Her dressing has been placed over the abdominal wound. Wound VAC has been temporarily held off. Then patient started of with abdominal pain across the upper abdomen yesterday. Followed by several bouts of vomiting. Patient did see Dr. costa the office today. And decision was made to send out of the ER. Patient been having some urinary frequency for last 2 days. No dysuria. No obvious fever and chills. Prior to that patient's been tolerating a diet rather well. Has been using a walker and walking close to 60-70 feet. Admitted with acute UTI. Does not appear to have any acute abdominal issue. Today-feeling better. Wound VAC in place. comfortable. Following a diet. Awaiting to go to [facility] Review of systems: Was done for constitutional, cardiovascular, GI, pulmonary. relevant finding as above Active Medications Acetaminophen (Tylenol Tab) 650 mg PO Q6HR PRN PRN Reason: Mild Pain or Fever > 100.5 Last Admin: 04/17/19 22:12 Dose: 650 mg Documented by: Amiodarone HCl (Cordarone) 100 mg PO DAILY@0800 [facility] Last Admin: 04/21/19 07:59 Dose: 100 mg Documented by: Atorvastatin Calcium (Lipitor) 40 mg PO HS@2100 [facility] Last Admin: 04/21/19 20:20 Dose: 40 mg Documented by: Bisacodyl (Dulcolax) 10 mg RECTAL DAILY PRN PRN Reason: Constipation Cilostazol (Pletal) 100 mg PO DAILY@0800 [facility] Last Admin: 04/21/19 08:00 Dose: 100 mg Documented by: Duloxetine HCl (Cymbalta) 60 mg PO HS@2100 [facility] Last Admin: 04/21/19 20:21 Dose: 60 mg Documented by: Ergocalciferol (Vitamin D2) 50,000 unit PO COHEN@1700 [facility] Last Admin: 04/21/19 18:04 Dose: 50,000 unit Documented by: Ferrous Sulfate (Feosol) 325 mg PO DAILY@1700 [facility] Last Admin: 04/21/19 17:18 Dose: 325 mg Documented by: Furosemide (Lasix) 40 mg PO BID@0600,1400 [facility] Last Admin: 04/21/19 14:47 Dose: 40 mg Documented by: Ertapenem 1 gm/ Sodium (Chloride) 50 mls @ 100 mls/hr IVPB DAILY [facility]; Protocol Last Admin: 04/21/19 09:43 Dose: 100 mls/hr Documented by: Ibuprofen (Motrin) 400 mg PO Q6HR PRN PRN Reason: Mild Pain or Fever > 100.5 Insulin Aspart (Novolog) 0 unit SQ ACHS [facility]; Protocol Last Admin: 04/21/19 20:24 Dose: Not Given Documented by: Ketorolac Tromethamine (Toradol) 15 mg IVP Q6HR PRN PRN Reason: Moderate Pain Stop: 04/22/19 18:27 Last Admin: 04/21/19 00:17 Dose: 15 mg Documented by: Lactobacillus Acidoph/Bulgaricus (Lactinex) 1 each PO BID@0800,1700 [facility] Last Admin: 04/21/19 17:19 Dose: 1 each Documented by: Latanoprost (Xalatan 0.005%) 1 drops BOTH EYES HS@2100 [facility] Last Admin: 04/21/19 20:23 Dose: Not Given Documented by: Levothyroxine Sodium (Synthroid) 88 mcg PO DAILY@0600 [facility] Last Admin: 04/21/19 04:36 Dose: 88 mcg Documented by: Loperamide HCl (Imodium) 2 mg PO BID PRN PRN Reason: Diarrhea Losartan Potassium (Cozaar) 50 mg PO DAILY@0800 [facility] Last Admin: 04/21/19 07:58 Dose: 50 mg Documented by: Magnesium Hydroxide (Milk Of Magnesia) 7,200 mg PO DAILY PRN PRN Reason: Constipation Magnesium Oxide (Mag-Ox) 400 mg PO TID [facility] Last Admin: 04/21/19 20:20 Dose: 400 mg Documented by: Metformin HCl (Glucophage) 500 mg PO BID@0800,1700 [facility] Last Admin: 04/21/19 17:19 Dose: 500 mg Documented by: Metoprolol Tartrate (Lopressor) 50 mg PO BID@0800,1700 [facility] Last Admin: 04/21/19 17:19 Dose: 50 mg Documented by: Naloxone HCl (Narcan) 0.2 mg IV Q2M PRN PRN Reason: Opioid Reversal Nystatin (Mycostatin Cream) 1 applic TOPICAL BID@0800,2100 [facility] Last Admin: 04/21/19 20:23 Dose: Not Given Documented by: Ondansetron HCl (Zofran) 4 mg IVP Q8HR PRN PRN Reason: Nausea And Vomiting Last Admin: 04/21/19 06:24 Dose: 4 mg Documented by: Ondansetron HCl (Zofran) 8 mg PO Q12H PRN PRN Reason: Nausea Oxycodone HCl (Oxycontin 15mg E.R.) 15 mg PO Q12H [facility] Last Admin: 04/21/19 20:20 Dose: 15 mg Documented by: Pantoprazole Sodium (Protonix) 40 mg PO DAILY [facility] Last Admin: 04/21/19 07:58 Dose: 40 mg Documented by: Potassium Chloride (K-Dur 20) 40 meq PO DAILY@1700 [facility] Last Admin: 04/21/19 17:18 Dose: 40 meq Documented by: Prednisone () 10 mg PO DAILY@0800 [facility] Last Admin: 04/21/19 07:58 Dose: 10 mg Documented by: Sodium Biphosphate/Sodium Phosphate (Fleet Adult) 133 ml RECTAL DAILY PRN PRN Reason: Constipation Physical examination: VITAL SIGNS:98.4, 74, 18, 141/89, 96% room air GENERAL: propped up in bed, comfortable EYES: Pupils equal. Conjunctiva pale HEENT: External appearance of nose and ears normal, oral cavity dry NECK: JVD unable to assess; masses not palpable. HEART: First and second heart sounds are normal; some edema. LUNGS: Respiratory rate normal; decreased breath sounds. ABDOMEN: Soft, wound VAC. No tenderness, , liver spleen not palpable, PSYCH: AAO 3, motor affect normal NEUROLOGICAL: Cranial nerves grossly intact, SENSATION grossly intact INVESTIGATIONS, reviewed in the clinical context: white count 11.9 hemoglobin 8.6 platelets 540 creatinine 0.65 urine kufozgd-lsgo-Pwjiyipdpjp pneumoniae, E. coli Previous testing White count 24.6 hemoglobin 11 platelets 671 potassium 3.2 creatinine 0.75 lactic acid 3.5. UA positive Patient's white count was 11.1 on March 31 Computed tomography scan of the abdomen-open anterior abdominal wound, distal colonic fecal debris. EKG tracing-prolonged QT sinus rhythm Chest x-ray film personally reviewed by me-no obvious infiltrates Assessment: -Acute UTI from cystitis, from Klebsiellar pneumoniae, E. 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 She will get 2 doses of Invanz. That is one dose today and one dose tomorrow. Midline was discontinued today. Patient can be discharged tomorrow without any antibiotics..
[2019-04-22] MEDS: LEVOTHYROXINE 88 MCG TAB PO SCH (06:14)
[2019-04-22] MEDS: FUROSEMIDE 40 MG TAB PO SCH ×2 (06:14→15:26)
[2019-04-22 07:13] LABS: Glucose,Whole Blood 110 mg/dL (75-99)
[2019-04-22 07:29] LABS: Anisocytosis Slight; Basophils # (A) 0.1 k/uL (0-0.2); Basophils % (A) 1 %; Eosinophils # (A) 0.5 k/uL (0-0.7); Eosinophils % (A) 4 %; HCT 28.7 % (34.0-46.0); HGB 8.9 gm/dL (11.4-16.0); Hypochromasia Marked; Lymphocytes # (A) 2.5 k/uL (1.0-4.8); Lymphocytes % (A) 22 %; MCH 24.8 pg (25.0-35.0); MCHC 31.1 g/dL (31.0-37.0); MCV 79.7 fL (80.0-100.0); Mean Platelet Volume 6.7; Microcytosis Slight; Monocytes # (A) 0.6 k/uL (0-1.0); Monocytes % (A) 5 %; Neutrophils # (A) 7.5 k/uL (1.3-7.7); Neutrophils % (A) 66 %; Platelet Count 612 k/uL (150-450); Poikilocytosis Slight; WBC 11.3 k/uL (3.8-10.6)
[2019-04-22] MEDS: INSULIN ASPART (NovoLOG) 100 UNIT/ML VIAL SQ SCH ×2 (07:39→12:09)
[2019-04-22] MEDS: CILOSTAZOL 100 MG TAB PO SCH (08:13)
[2019-04-22] MEDS: AMIODARONE 100 MG TAB PO SCH (08:13)
[2019-04-22] MEDS: ERTAPENEM 1 GM in SODIUM CHLORIDE 0.9% 50 ML IVPB SCH (08:13)
[2019-04-22] MEDS: METOPROLOL TARTRATE 50 MG TAB PO SCH (08:14)
[2019-04-22] MEDS: metFORMIN 500 MG TAB PO SCH (08:14)
[2019-04-22] MEDS: MAGNESIUM OXIDE 400 MG TAB PO SCH (08:14)
[2019-04-22] MEDS: LOSARTAN 50 MG TAB PO SCH (08:14)
[2019-04-22] MEDS: predniSONE 10 MG TAB PO SCH (08:14)
[2019-04-22] MEDS: oxyCODONE ER 15 MG TAB.ER.12H PO SCH (08:14)
[2019-04-22] MEDS: LACTOBACILLUS ACIDOPH & BULGAR 1 EACH PACKET PO SCH (08:14)
[2019-04-22] MEDS: PANTOPRAZOLE 40 MG TABLET PO SCH (08:14)
[2019-04-22] MEDS: NYSTATIN 100,000UNIT/GM CREAM 30 GM TUBE TOPICAL SCH (08:15)
[2019-04-22] MEDS ORDERED: Magnesium Replacement Protocol 1 EACH MISC MISCELLANE PRN (09:29)
[2019-04-22] MEDS ORDERED: HEPARIN SODIUM,PORCINE 5,000 UNIT/ML 1 ML VIAL SQ SCH (09:45)
[2019-04-22] MEDS: MAGNESIUM SULFATE-D5W PMX 1 GM in DEXTROSE/WATER 1 100ML.BAG IVPB SCH ×2 (10:51→12:09)
[2019-04-22 11:55] LABS: Glucose,Whole Blood 169 mg/dL (75-99)
--- NOTE | 2019-04-22 12:56 | CDI ---
Documentation Clarification Form Date: 04/22/2019 12:47:39 PM From: Emma Hairston RN, CCDS Admit Date: 04/17/2019 07:01:00 PM Patient Name: Carolyn Sellers Visit Number: [id number] ATTENTION: The Clinical Documentation Specialists (CDI) and [facility] Coding Staff appreciate your assistance in clarifying documentation. Please respond to the clarification below the line at the bottom and electronically sign. The CDI & [facility] Coding staff will review the response and follow-up if needed. Please note: Queries are made part of the Legal Health Record. If you have any questions, please contact the author of this message via ITS. Dr. Parveen Perez declining Hgb and Hct lacks specificity to accurately reflect your patients severity of condition and clarification is needed. History/Risk Factors: CABG with ischemic bowel with perforation with ostomy and wound vac December 2018, CAD, paroxysmal atrial fib, PAD, abdominal mesh Clinical indicators: Hemoglobin: 11.0/8.9/8.6/8.9 Hematocrit: 34.2/28.6/26.9/28.7 Treatment: Monitoring labs Feosol 325 mg Po QD 2L IVF Bolus In order to capture the severity of condition, please clarify the clinical significance of the declining Hgb and Hct and etiology if known: Acute blood loss anemia Acute on chronic blood loss anemia Chronic blood loss anemia Iron deficiency anemia Drug induced anemia Nutritional anemia Anemia of chronic disease Unable to determine Other, please specify (Last Revision: January 2017) Anemia of chronic disease MTDD
[2019-04-22 15:07] VITALS: BP 120/50; PULSE 69; RESP 18; TEMP 97.8
--- NOTE | 2019-04-22 16:43 | PN ---
PROGRESS NOTE DATE OF SERVICE: 04/22/2019 REASON FOR FOLLOWUP: 1. Urinary tract infection. 2. Abdominal wound. INTERVAL HISTORY: The patient was seen on rounds earlier this afternoon. The patient has been afebrile. The patient is breathing comfortably. No further nausea, vomiting or abdominal pain. Her urinary symptoms have improved. PHYSICAL EXAMINATION: Blood pressure 120/50 with a pulse of 69, temperature 97.9. She is 92% on room air. General description is an elderly female up in the chair in no distress. RESPIRATORY SYSTEM: Unlabored breathing. Clear to auscultation anteriorly. HEART: S1, S2. Regular rate and rhythm. ABDOMEN: Soft. No tenderness. LABS: White count 11.3. Repeat urine was not significantly positive. Culture so far negative. DIAGNOSTIC IMPRESSION AND PLAN: 1. Patient admitted to hospital with a urinary tract infection, likely klebsiella as the infected pathogen, with overall clinical improvement on cefepime. ESBL E coli more likely a colonizer, as repeat UA was not significantly positive. She will get her dose of Invanz today and can go home. No further antibiotic on discharge. 2. Abdominal wound, postsurgical; to continue local wound care with wound V.A.C. and follow up in the wound care center. MMODL / IJN: [id number] /
--- NOTE | 2019-04-22 23:38 | P.DS ---
Providers Date of admission: 04/17/19 19:01 Attending physician: Parveen Dietz Consults: 04/17/19 18:26 Consult Physician Stat Consulting Provider: Christopher Montoya Consult Reason/Comments: surgical wound mgmt Do you want consulting provider notified?: Yes Consult Physician Stat Consulting Provider: Comfort Lancaster Consult Reason/Comments: Wound care, UTI sepsis Do you want consulting provider notified?: Yes Primary care physician: [facility] Course: Diagnoses: -Acute UTI from cystitis, from Klebsiellar pneumoniae, E. 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 coli and Klebsiella found in urine culture, patient has been evaluated by infectious diseases specialist, she is being treated with ertapenem/InVanze admission showed interval improvement, she finished her course of antibiotic therapy and she does not need any more antibiotics on discharged. Patient has been evaluated by physical therapy and recommended subacute rehab for her generalized weakness. patient is also on wound VAC for her abdominal wound and patient's been evaluated by surgery service. On the day of discharge patient denies chest pain, no dyspnea, no change in urine or bowel habits, no nausea vomiting, no fever and she is tolerating diet well. Patient is eager to be discharged to rehab today Patient was cleared for discharge by infectious disease and surgical services Problems and management plan were discussed with the patient and he verbalized understanding and acceptance Patient was found stable and can be discharged home however he needs follow-up as an outpatient. Patient was instructed to follow up with PCP within one week and patient agrees Gen: patient is a AAOx3, no distress CVS: S1-S2, RRR, no murmur Lungs: B/L CTA, no wheezing -Abdomen: soft, no distention, no tenderness, positive bowel sounds. Wound VAC is in place Extremity: no leg edema or induration Time spent more than 35 minutes Patient Condition at Discharge: Stable Plan - Discharge Summary Discharge Rx Participant: Yes New Discharge Prescriptions: No Action Ergocalciferol (Vitamin D2) [Vitamin D2] 50,000 unit PO COHEN@1700 DULoxetine HCL [Cymbalta] 60 mg PO HS@2100 Furosemide [Lasix] 40 mg PO BID@0600,1400 Latanoprost/Pf [Latanoprost 0.005% Eye Drop] 1 drop BOTH EYES HS@2100 Amiodarone [Cordarone] 100 mg PO DAILY@0800 Metoprolol Tartrate [Lopressor] 50 mg PO BID@0800,1700 Cilostazol [Pletal] 100 mg PO DAILY@0800 metFORMIN HCL [Glucophage] 500 mg PO BID@0800,1700 L.acidoph,Paracasei, B.lactis [Probiotic] 1 cap PO BID@0800,1700 Na Phos,M-B/Na Phos,Di-Ba [Fleet Adult] 133 ml RECTAL DAILY PRN PRN Reason: Constipation Ensure Clear 237 ml PO BID@0800,1700 predniSONE 10 mg PO DAILY@0800 Levothyroxine Sodium [Synthroid] 88 mcg PO DAILY@0600 Losartan [Cozaar] 50 mg PO DAILY@0800 tab Atorvastatin [Lipitor] 40 mg PO HS@2100 tab INSULIN ASPART (NovoLOG) [NovoLOG (formulary)] See Protocol SQ ACHS Nystatin 100,000Unit/gm Cream [Mycostatin Cream] 1 applic TOPICAL BID@0800,2100 Ferrous Sulfate [Iron (65 MG Elemental)] 325 mg PO DAILY@1700 Ondansetron HCl [Zofran] 8 mg PO Q12H PRN PRN Reason: Nausea Bisacodyl [Dulcolax] 10 mg RECTAL DAILY PRN PRN Reason: Constipation Loperamide [Imodium] 2 mg PO BID PRN PRN Reason: Diarrhea Magic Cup 1 dose PO DAILY@1500 Magnesium Hydroxide [Milk of Magnesia Concentrate] 7,200 mg PO DAILY PRN PRN Reason: Constipation oxyCODONE ER [OxyCONTIN] 15 mg PO Q12H Potassium Chloride ER [K-Dur 20] 20 meq PO DAILY@1700 Discharge Medication List DULoxetine HCL [Cymbalta] 60 mg PO HS@2100 12/14/16 [History] Ergocalciferol (Vitamin D2) [Vitamin D2] 50,000 unit PO COHEN@1700 12/14/16 [History] Amiodarone [Cordarone] 100 mg PO DAILY@0800 03/02/18 [History] Furosemide [Lasix] 40 mg PO BID@0600,1400 03/02/18 [History] Latanoprost/Pf [Latanoprost 0.005% Eye Drop] 1 drop BOTH EYES HS@2100 03/02/18 [History] Cilostazol [Pletal] 100 mg PO DAILY@0800 11/15/18 [History] Metoprolol Tartrate [Lopressor] 50 mg PO BID@0800,1700 11/15/18 [History] metFORMIN HCL [Glucophage] 500 mg PO BID@0800,1700 11/15/18 [History] Ensure Clear 237 ml PO BID@0800,1700 03/05/19 [History] L.acidoph,Paracasei, B.lactis [Probiotic] 1 cap PO BID@0800,1700 03/05/19 [History] Levothyroxine Sodium [Synthroid] 88 mcg PO DAILY@0600 03/05/19 [History] Na Phos,M-B/Na Phos,Di-Ba [Fleet Adult] 133 ml RECTAL DAILY PRN 03/05/19 [History] predniSONE 10 mg PO DAILY@0800 03/05/19 [History] Atorvastatin [Lipitor] 40 mg PO HS@2100 tab 03/13/19 [Rx] Losartan [Cozaar] 50 mg PO DAILY@0800 tab 03/13/19 [Rx] Ferrous Sulfate [Iron (65 MG Elemental)] 325 mg PO DAILY@1700 03/30/19 [History] INSULIN ASPART (NovoLOG) [NovoLOG (formulary)] See Protocol SQ ACHS 03/30/19 [History] Nystatin 100,000Unit/gm Cream [Mycostatin Cream] 1 applic TOPICAL BID@0800,2100 03/30/19 [History] Ondansetron HCl [Zofran] 8 mg PO Q12H PRN 03/30/19 [History] Bisacodyl [Dulcolax] 10 mg RECTAL DAILY PRN 04/17/19 [History] Loperamide [Imodium] 2 mg PO BID PRN 04/17/19 [History] Magic Cup 1 dose PO DAILY@1500 04/17/19 [History] Magnesium Hydroxide [Milk of Magnesia Concentrate] 7,200 mg PO DAILY PRN 04/17/19 [History] Potassium Chloride ER [K-Dur 20] 20 meq PO DAILY@1700 04/17/19 [History] oxyCODONE ER [OxyCONTIN] 15 mg PO Q12H 04/17/19 [History] Follow up Appointment(s)/Referral(s): Diaz Alcala DO [Primary Care Provider] - 1-2 days
--- NOTE | 2019-04-26 12:12 | CDI ---
Documentation Clarification Form Date: 04/26/19 From: Sherry Bruce Phone: If you have a question about this query, please contact Teresa Duarte, Fill Technician at [phone] between 8am and 5pm. Admit Date: 04/17/19 Discharge Date:04/22/19 Patient Name: Carolyn Sellers Visit Number: [id number] ATTENTION: The Clinical Documentation Specialists (CDI) and [facility] Coding Staff appreciate your assistance in clarifying documentation. Please respond to the clarification below the line at the bottom and electronically sign. The CDI & [facility] Coding staff will review the response and follow-up if needed. Please note: Queries are made part of the Legal Health Record. If you have any questions, please contact the author of this message via ITS. Dear Dr. Parveen Dietz The patient presented with acute cystitis. Sepsis was documented in the ED note. History/Risk Factors: acute cystitis Clinical Indicators: Elevated lactic acid, WBC: 24.6, documentation in the discharge summary stated mild chronic leukocytosis, mostly reactive related to her Prednisone. Lactic acid: 3.5, 3.9, 2.9 Blood cultures: No growth Vitals signs on admission: T. 97.8, P. 75, R. 19, BP 113/81 Antibiotics: IV Vancomycin, IV Zosyn, IV Cefepime IV Bolus: 2 liter bolus In your professional opinion, please clarify if these findings signify one of the following conditions, whether the condition is POA, and cause, if known: Condition Sepsis ruled out SIRS, without underlying infectious process Sepsis Other, please specify Unable to determine Possible sepsis, secondary to UTI, POA MTDD
== END 2019-04-22 15:49 | DRG 872 ==
LOC: EC 12:52 → 5NMEDONC 19:01 → 4SSUR 22:18
PROVIDERS: ADMIT Hospitalist; ATTEND Hospitalist
DX: A41.9 Sepsis, unspecified organism (principal); N30.00 Acute cystitis without hematuria; Z16.24 Resistance to multiple antibiotics; D63.8 Anemia in other chronic diseases classified elsewhere; G72.9 Myopathy, unspecified; E11.51 Type 2 diabetes mellitus with diabetic peripheral angiopathy without gangrene; B96.1 Klebsiella pneumoniae [K. pneumoniae] as the cause of diseases classified elsewhere; B96.20 Unspecified Escherichia coli [E. coli] as the cause of diseases classified elsewhere; E03.9 Hypothyroidism, unspecified; E66.9 Obesity, unspecified; E78.5 Hyperlipidemia, unspecified; F32.9 Major depressive disorder, single episode, unspecified; F41.9 Anxiety disorder, unspecified; I10 Essential (primary) hypertension; I25.10 Atherosclerotic heart disease of native coronary artery without angina pectoris; I48.0 Paroxysmal atrial fibrillation; M47.816 Spondylosis without myelopathy or radiculopathy, lumbar region; T38.0X5A Adverse effect of glucocorticoids and synthetic analogues, initial encounter; D72.829 Elevated white blood cell count, unspecified; G89.29 Other chronic pain; M54.5 Low back pain; R26.9 Unspecified abnormalities of gait and mobility; R32 Unspecified urinary incontinence; M19.012 Primary osteoarthritis, left shoulder; M19.011 Primary osteoarthritis, right shoulder; R41.3 Other amnesia; Z68.31 Body mass index [BMI] 31.0-31.9, adult; Z79.02 Long term (current) use of antithrombotics/antiplatelets; Z79.84 Long term (current) use of oral hypoglycemic drugs; Z79.890 Hormone replacement therapy; Z79.899 Other long term (current) drug therapy; Z79.52 Long term (current) use of systemic steroids; Z88.5 Allergy status to narcotic agent; Z96.653 Presence of artificial knee joint, bilateral; Z95.1 Presence of aortocoronary bypass graft; Z87.891 Personal history of nicotine dependence; Z90.49 Acquired absence of other specified parts of digestive tract; Z80.49 Family history of malignant neoplasm of other genital organs; Z82.49 Family history of ischemic heart disease and other diseases of the circulatory system
CPT/HCPCS: 36415; 71046; 74177; 80048; 80053; 81001; 82565; 83605; 83735; 84100; 84484; 85025; 85610; 85730; 86140; 87040; 87077; 87086; 87186; 93005; 96361; 96365; 96366; 96367; 96375; 99285

== ENCOUNTER 2019-05-31 17:35 | Inpatient (IN) | payer MEDICARE ==
[2019-05-31] MEDS ORDERED: SODIUM CHLORIDE 0.9% 1,000 ML IV STA ×3 (18:00→20:39)
[2019-05-31] MEDS ORDERED: ONDANSETRON 4 MG/2 ML VIAL IVP STA (18:00)
[2019-05-31] MEDS ORDERED: SODIUM CHLORIDE 0.9% 500 ML 500 ML IV STA ×2 (18:00→20:39)
--- NOTE | 2019-05-31 18:00 | ED ---
Recheck HPI - General Chief Complaint: Recheck/Abnormal Lab/Rx Stated Complaint: Vomiting/abn labs Time Seen by Provider: 05/31/19 17:54 Source: patient, RN notes reviewed, old records reviewed Mode of arrival: ambulatory Limitations: no limitations - History of Present Illness Initial Comments: this is a 72-year-old female DF for evaluation patient is here for recheck of abnormal white blood cell count abnormal level has increased outpatient lab test s with increased nausea and vomiting patient feels weak with feels like she stay hydrated no travel history other she is recently from other hospitals recent surgical procedure her abdomen mesh removal secondary to infection with percutaneous drainage. Patient has no significant change in abdominal pain no change in fluid output. Otherwise denying any cough congestion or shortness of breath no rashes MD Complaint: abnormal lab (inc WBC) -: unknown Initial Visit For: other (post Op infection) Returns Today for: Called Because of Abnormal Lab/Test Symptoms Since Prior Visit: no new symptoms (maybe some inc NV) Associated Symptoms: none, fever, chills, nausea - Related Data Home Medications Medication Instructions Recorded Confirmed DULoxetine HCL [Cymbalta] 60 mg PO HS@209912/14/16 04/17/19 Ergocalciferol (Vitamin D2) 50,000 unit PO COHEN@1700 12/14/16 04/17/19 [Vitamin D2] Amiodarone [Cordarone] 100 mg PO DAILY@0800 03/02/18 04/17/19 Furosemide [Lasix] 40 mg PO BID@0600,1400 03/02/18 04/17/19 Latanoprost/Pf [Latanoprost 0.005% 1 drop BOTH EYES HS@209903/02/18 04/17/19 Eye Drop] Cilostazol [Pletal] 100 mg PO DAILY@0800 11/15/18 04/17/19 Metoprolol Tartrate [Lopressor] 50 mg PO BID@0800,1700 11/15/18 04/17/19 metFORMIN HCL [Glucophage] 500 mg PO BID@0800,1700 11/15/18 04/17/19 Ensure Clear 237 ml PO BID@0800,1700 03/05/19 04/17/19 L.acidoph,Paracasei, B.lactis 1 cap PO BID@0800,1700 03/05/19 04/17/19 [Probiotic] Levothyroxine Sodium [Synthroid] 88 mcg PO DAILY@0600 03/05/19 04/17/19 Na Phos,M-B/Na Phos,Di-Ba [Fleet 133 ml RECTAL DAILY PRN 03/05/19 04/17/19 Adult] predniSONE 10 mg PO DAILY@0800 03/05/19 04/17/19 Ferrous Sulfate [Iron (65 MG 325 mg PO DAILY@1700 03/30/19 04/17/19 Elemental)] INSULIN ASPART (NovoLOG) [NovoLOG See Protocol SQ ACHS 03/30/19 04/17/19 (formulary)] Nystatin 100,000Unit/gm Cream 1 applic TOPICAL BID@0800,2100 03/30/19 04/17/19 [Mycostatin Cream] Ondansetron HCl [Zofran] 8 mg PO Q12H PRN 03/30/19 04/17/19 Bisacodyl [Dulcolax] 10 mg RECTAL DAILY PRN 04/17/19 04/17/19 Loperamide [Imodium] 2 mg PO BID PRN 04/17/19 04/17/19 Magic Cup 1 dose PO DAILY@1500 04/17/19 04/17/19 Magnesium Hydroxide [Milk of 7,200 mg PO DAILY PRN 04/17/19 04/17/19 Magnesia Concentrate] Potassium Chloride ER [K-Dur 20] 20 meq PO DAILY@1700 04/17/19 04/17/19 Previous Rx's Medication Instructions Recorded Atorvastatin [Lipitor] 40 mg PO HS@2100 tab 03/13/19 Losartan [Cozaar] 50 mg PO DAILY@0800 tab 03/13/19 Acetaminophen Tab [Tylenol] 650 mg PO Q6HR PRN tab 04/22/19 Pantoprazole [Protonix] 40 mg PO DAILY #15 tablet. 04/22/19 oxyCODONE ER [OxyCONTIN] 15 mg PO Q12H #4 tab 04/22/19 Allergies Allergy/AdvReac Type Severity Reaction Status Date / Time morphine Allergy Intermediate Itching Verified 05/31/19 17:40 Review of Systems ROS Statement: Those systems with pertinent positive or pertinent negative responses have been documented in the HPI. ROS Other: All systems not noted in ROS Statement are negative. Past Medical History Past Medical History: Atrial Fibrillation, Coronary Artery Disease (CAD), Diabet es Mellitus, Hyperlipidemia, Hypertension, Memory Impairment, Osteoarthritis (OA), Thyroid Disorder, Vascular Disorder Additional Past Medical History / Comment(s): 01/18/19 incisional hernia repair- open with mesh and has drain, paroxysmal Afib, NIDDM type II, PAD, decreased circulation to R lower extremity-pt states had several unsuccessful attempts at placing artificial artery, bowel surgery d/t blood clot to colon post operatively, frequent diarrhea, urinary incontinence, chronic elevated WBC, chronic low back pain/pinched nerve, bilateral shoulder pain-DJD, "forgetful", hypothyroid, vertigo at times. History of Any Multi-Drug Resistant Organisms: ESBL, Other MDRO, VRE Date of last positivie culture/infection: 03/06/19 VRE; 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 Source:: Abdomen-VRE; Body Fluid Aspirate-ESBL Past Surgical History: Appendectomy, Bowel Resection, Breast Surgery, Cholecystectomy, Coronary Bypass/CABG, Heart Catheterization, Hernia Repair, Joint Replacement, Orthopedic Surgery Additional Past Surgical History / Comment(s): 01/18/19 incisional hernia repair- open with mesh, 12/11/17 CABG 4 vessel, 12/20/17 colectomy/ileostomy with rever alex, R leg attempted bypasses with artificial artery which pt states were unsuccessful, L breast benign tumor removed, bilateral total knee arthroplasties, R rotator cuff repair, low back epidural injections, piccs-since removed. Past Anesthesia/Blood Transfusion Reactions: No Reported Reaction Additional Past Anesthesia/Blood Transfusion Reaction / Comment(s): Pt has recently received blood and also years ago received blood without reaction. Past Psychological History: Anxiety, Depression Smoking Status: Former smoker Past Alcohol Use History: None Reported Past Drug Use History: None Reported - Past Family History Mother Family Medical History: Cancer Additional Family Medical History / Comment(s): Uterine cancer. Father Family Medical History: Congestive Heart Failure (CHF) General Exam Limitations: no limitations General appearance: alert, in no apparent distress Head exam: Present: atraumatic, normocephalic, normal inspection Eye exam: Present: normal appearance, PERRL, EOMI. Absent: scleral icterus, c onjunctival injection, periorbital swelling ENT exam: Present: normal exam, mucous membranes moist Neck exam: Present: normal inspection. Absent: tenderness, meningismus, lymphadenopathy Respiratory exam: Present: normal lung sounds bilaterally. Absent: respiratory distress, wheezes, rales, rhonchi, stridor Cardiovascular Exam: Present: normal rhythm, tachycardia, normal heart sounds. Absent: systolic murmur, diastolic murmur, rubs, gallop, clicks GI/Abdominal exam: Present: soft, normal bowel sounds. Absent: distended, tenderness, guarding, rebound, rigid Extremities exam: Present: normal inspection, full ROM, normal capillary refill. Absent: tenderness, pedal edema, joint swelling, calf tenderness Back exam: Present: normal inspection Neurological exam: Present: alert, oriented X3, CN II-XII intact Psychiatric exam: Present: normal affect, normal mood Skin exam: Present: warm, dry, intact, normal color. Absent: rash Course Vital Signs 05/31/19 17:37 Temperature 98.2 F Pulse Rate 102 H Respiratory 18 Rate Blood Pressure 144/98 O2 Sat by Pulse 98 Oximetry - Reevaluation(s) Reevaluation #1: 05/31/19 19:35 Medical record is reviewed Reevaluation #2: 05/31/19 21:40 Patient still remains feeling weak with nausea no active vomiting - Consultations Consultation #1: spoke w Dr J Luis garcia for admission Medical Decision Making - Medical Decision Making 4 female here with acute on chronic infection with leukocytosis today. Patient will continue her will restart antibiotics here in the ER pending urine cultures. Patient will also see infectious disease and postoperative evaluation - Lab Data Result diagrams: 05/31/19 19:00 05/31/19 19:00 Lab Results 05/31/19 05/31/19 05/31/19 Range/Units 19:00 19:00 19:00 WBC 18.8 H (3.8-10.6) k/uL RBC 4.28 (3.80-5.40) m/uL Hgb 10.2 L (11.4-16.0) gm/dL Hct 33.4 L (34.0-46.0) % MCV 78.0 L (80.0-100.0) fL MCH 23.9 L (25.0-35.0) pg MCHC 30.7 L (31.0-37.0) g/dL RDW 18.1 H (11.5-15.5) % Plt Count 576 H (150-450) k/uL Neutrophils % 80 % Lymphocytes % 12 % Monocytes % 5 % Eosinophils % 2 % Basophils % 0 % Neutrophils # 15.0 H (1.3-7.7) k/uL Lymphocytes # 2.2 (1.0-4.8) k/uL Monocytes # 0.9 (0-1.0) k/uL Eosinophils # 0.4 (0-0.7) k/uL Basophils # 0.1 (0-0.2) k/uL Hypochromasia Slight Anisocytosis Slight Microcytosis Slight PT (9.0-12.0) sec INR (<1.2) APTT (22.0-30.0) sec Sodium 133 L (137-145) mmol/L Potassium 3.0 L (3.5-5.1) mmol/L Chloride 94 L (98-107) mmol/L Carbon Dioxide 29 (22-30) mmol/L Anion Gap 10 mmol/L BUN 14 (7-17) mg/dL Creatinine 0.65 (0.52-1.04) mg/dL Est GFR (CKD-EPI)AfAm >90 (>60 ml/min/1.73 sqM) Est GFR (CKD-EPI)NonAf 89 (>60 ml/min/1.73 sqM) Glucose 131 H (74-99) mg/dL Plasma Lactic Acid Frederick 3.2 H* (0.7-2.0) mmol/L Calcium 9.7 (8.4-10.2) mg/dL Phosphorus 3.4 (2.5-4.5) mg/dL Magnesium 1.5 L (1.6-2.3) mg/dL Total Bilirubin 0.5 (0.2-1.3) mg/dL AST 27 (14-36) U/L ALT 24 (4-34) U/L Alkaline Phosphatase 185 H (38-126) U/L Creatine Kinase 22 L (30-135) U/L Troponin I (0.000-0.034) ng/mL NT-Pro-B Natriuret Pep pg/mL Total Protein 6.4 (6.3-8.2) g/dL Albumin 3.8 (3.5-5.0) g/dL Influenza Type A RNA (Not Detectd) Influenza Type B (PCR) (Not Detectd) 05/31/19 05/31/19 05/31/19 Range/Units 19:00 19:00 19:00 WBC (3.8-10.6) k/uL RBC (3.80-5.40) m/uL Hgb (11.4-16.0) gm/dL Hct (34.0-46.0) % MCV (80.0-100.0) fL MCH (25.0-35.0) pg MCHC (31.0-37.0) g/dL RDW (11.5-15.5) % Plt Count (150-450) k/uL Neutrophils % % Lymphocytes % % Monocytes % % Eosinophils % % Basophils % % Neutrophils # (1.3-7.7) k/uL Lymphocytes # (1.0-4.8) k/uL Monocytes # (0-1.0) k/uL Eosinophils # (0-0.7) k/uL Basophils # (0-0.2) k/uL Hypochromasia Anisocytosis Microcytosis PT 9.4 (9.0-12.0) sec INR 0.9 (<1.2) APTT 20.6 L (22.0-30.0) sec Sodium (137-145) mmol/L Potassium (3.5-5.1) mmol/L Chloride (98-107) mmol/L Carbon Dioxide (22-30) mmol/L Anion Gap mmol/L BUN (7-17) mg/dL Creatinine (0.52-1.04) mg/dL Est GFR (CKD-EPI)AfAm (>60 ml/min/1.73 sqM) Est GFR (CKD-EPI)NonAf (>60 ml/min/1.73 sqM) Glucose (74-99) mg/dL Plasma Lactic Acid Frederick (0.7-2.0) mmol/L Calcium (8.4-10.2) mg/dL Phosphorus (2.5-4.5) mg/dL Magnesium (1.6-2.3) mg/dL Total Bilirubin (0.2-1.3) mg/dL AST (14-36) U/L ALT (4-34) U/L Alkaline Phosphatase (38-126) U/L Creatine Kinase (30-135) U/L Troponin I 0.022 (0.000-0.034) ng/mL NT-Pro-B Natriuret Pep 335 pg/mL Total Protein (6.3-8.2) g/dL Albumin (3.5-5.0) g/dL Influenza Type A RNA (Not Detectd) Influenza Type B (PCR) (Not Detectd) 05/31/19 Range/Units 20:50 WBC (3.8-10.6) k/uL RBC (3.80-5.40) m/uL Hgb (11.4-16.0) gm/dL Hct (34.0-46.0) % MCV (80.0-100.0) fL MCH (25.0-35.0) pg MCHC (31.0-37.0) g/dL RDW (11.5-15.5) % Plt Count (150-450) k/uL Neutrophils % % Lymphocytes % % Monocytes % % Eosinophils % % Basophils % % Neutrophils # (1.3-7.7) k/uL Lymphocytes # (1.0-4.8) k/uL Monocytes # (0-1.0) k/uL Eosinophils # (0-0.7) k/uL Basophils # (0-0.2) k/uL Hypochromasia Anisocytosis Microcytosis PT (9.0-12.0) sec INR (<1.2) APTT (22.0-30.0) sec Sodium (137-145) mmol/L Potassium (3.5-5.1) mmol/L Chloride (98-107) mmol/L Carbon Dioxide (22-30) mmol/L Anion Gap mmol/L BUN (7-17) mg/dL Creatinine (0.52-1.04) mg/dL Est GFR (CKD-EPI)AfAm (>60 ml/min/1.73 sqM) Est GFR (CKD-EPI)NonAf (>60 ml/min/1.73 sqM) Glucose (74-99) mg/dL Plasma Lactic Acid Frederick (0.7-2.0) mmol/L Calcium (8.4-10.2) mg/dL Phosphorus (2.5-4.5) mg/dL Magnesium (1.6-2.3) mg/dL Total Bilirubin (0.2-1.3) mg/dL AST (14-36) U/L ALT (4-34) U/L Alkaline Phosphatase (38-126) U/L Creatine Kinase (30-135) U/L Troponin I (0.000-0.034) ng/mL NT-Pro-B Natriuret Pep pg/mL Total Protein (6.3-8.2) g/dL Albumin (3.5-5.0) g/dL Influenza Type A RNA Not Detected (Not Detectd) Influenza Type B (PCR) Not Detected (Not Detectd) - Radiology Data Radiology results: report reviewed (XR Abdominal series w chest is negative for acute disease), image reviewed Disposition Clinical Impression: Acute delirium, Abdominal pain, Urinary tract infection, Leukocytosis Disposition: ADMITTED IP TO THIS HOSP Condition: Fair Is patient prescribed a controlled substance at d/c from ED?: No Referrals: Diaz Alcala DO [Primary Care Provider] - 1-2 days
[2019-05-31] MEDS ORDERED: PANTOPRAZOLE 40 MG/10 ML VIAL IVP STA (18:01)
[2019-05-31 19:26] LABS: ALT 24 U/L (4-34); AST 27 U/L (14-36); African American GFR (CKD) >90 (>60 ml/min/1.73 sqM); Albumin 3.8 g/dL (3.5-5.0); Alkaline Phosphatase 185 U/L (38-126); Anion Gap 10 mmol/L; Blood Urea Nitrogen 14 mg/dL (7-17); Calcium 9.7 mg/dL (8.4-10.2); Carbon Dioxide 29 mmol/L (22-30); Chloride 94 mmol/L (98-107); Creatine Kinase 22 U/L (30-135); Glucose 131 mg/dL (74-99); Magnesium 1.5 mg/dL (1.6-2.3); Non-African American GFR(CKD) 89 (>60 ml/min/1.73 sqM); Phosphorus 3.4 mg/dL (2.5-4.5); Sodium 133 mmol/L (137-145); Total Bilirubin 0.5 mg/dL (0.2-1.3); Total Protein 6.4 g/dL (6.3-8.2)
[2019-05-31 19:45] LABS: Anisocytosis Slight; Basophils # (A) 0.1 k/uL (0-0.2); Basophils % (A) 0 %; Eosinophils # (A) 0.4 k/uL (0-0.7); Eosinophils % (A) 2 %; HCT 33.4 % (34.0-46.0); HGB 10.2 gm/dL (11.4-16.0); Hypochromasia Slight; Lymphocytes # (A) 2.2 k/uL (1.0-4.8); Lymphocytes % (A) 12 %; MCH 23.9 pg (25.0-35.0); MCHC 30.7 g/dL (31.0-37.0); Mean Platelet Volume 7.9; Microcytosis Slight; Monocytes # (A) 0.9 k/uL (0-1.0); Monocytes % (A) 5 %; Neutrophils % (A) 80 %; Platelet Count 576 k/uL (150-450); RBC 4.28 m/uL (3.80-5.40); RDW 18.1 % (11.5-15.5); WBC 18.8 k/uL (3.8-10.6)
[2019-05-31 19:54] LABS: INR 0.9 (<1.2); Prothrombin Time 9.4 sec (9.0-12.0)
[2019-05-31 19:55] LABS: Partial Thromboplastin Time 20.6 sec (22.0-30.0)
--- NOTE | 2019-05-31 20:22 | XR ---
EXAMINATION TYPE: XR abdomen acute w cxr DATE OF EXAM: 05/31/2019 COMPARISON: Chest x-ray 04/17/2019 HISTORY: Abdominal pain. Vomiting. TECHNIQUE: 4 views FINDINGS: There is no heart failure nor confluent pneumonic infiltrate. Bowel gas pattern is normal. There is no sign of intestinal obstruction or pneumoperitoneum. Fecal pattern is normal. There is low er lumbar dextroscoliosis. There are no pathologic calcifications over the kidneys. There are clips f rom cholecystectomy. There are sternal wires. IMPRESSION: No active cardiopulmonary disease. Nonacute abdomen. Chest unchanged compared to old exam .
[2019-05-31] MEDS ORDERED: HYDROmorphone 1 MG/ML 1 ML SYRINGE IVP STA (21:44)
[2019-05-31] MEDS ORDERED: SODIUM CHLORIDE 0.9% 500 ML 500 ML IV SCH (21:45)
[2019-05-31 21:50] LABS: Appearance,Urine Clear (Clear); Bilirubin,Urine Negative (Negative); Blood,Urine Negative (Negative); Color,Urine Yellow; Glucose,Urine (UA) 1+ (Negative); Hyaline Casts,Urine 1 /lpf (0-2); Ketones,Urine Negative (Negative); Leukocyte Esterase,Urine Large (Negative); Mucus,Urine Rare /hpf; Nitrite,Urine Negative (Negative); Protein,Urine Negative (Negative); RBC,Urine <1 /hpf (0-5); Squamous Epithelial Cell,Urine 3 /hpf (0-4); Urobilinogen,Urine <2.0 mg/dL (<2.0); WBC,Urine 7 /hpf (0-5)
[2019-05-31] MEDS: SODIUM CHLORIDE 0.9% 1,000 ML IV SCH (22:19)
[2019-06-01] MEDS: HYDROmorphone 1 MG/ML 1 ML SYRINGE IVP PRN ×5 (01:03→14:55)
[2019-06-01 06:54] LABS: Glucose,Whole Blood 115 mg/dL (75-99)
[2019-06-01] MEDS: SODIUM CHLORIDE 0.9% 1,000 ML IV SCH ×3 (07:24→19:47)
[2019-06-01] MEDS: INSULIN ASPART (NovoLOG) 100 UNIT/ML VIAL SQ SCH ×4 (07:43→20:45)
[2019-06-01] MEDS: PANTOPRAZOLE 40 MG/10 ML VIAL IV SCH (07:47)
[2019-06-01] MEDS: ENOXAPARIN 40 MG/0.4 ML SYRINGE SQ SCH (07:48)
[2019-06-01 11:35] LABS: Glucose,Whole Blood 175 mg/dL (75-99)
[2019-06-01] MEDS ORDERED: ACETAMINOPHEN TAB 325 MG TAB PO PRN (12:13)
[2019-06-01] MEDS: FUROSEMIDE 40 MG TAB PO SCH (13:09)
[2019-06-01] MEDS: oxyCODONE ER 15 MG TAB.ER.12H PO SCH ×2 (13:09→20:44)
[2019-06-01] MEDS: AMIODARONE 100 MG TAB PO SCH (13:38)
--- NOTE | 2019-06-01 14:00 | P.GSCN ---
History of Present Illness Consult date: 06/01/19 Reason for Consult: Nausea and vomiting History of present illness: We were consulted to see this patient who is known to our service. Patient admitted for elevated white blood cell count and nausea and vomiting. Denies pain. Nausea and vomiting apparently have resolved. Was found as an outpatient to have an elevated white blood cell count. Has a wound VAC in place treating a large midline abdominal wound. Being seen also by infectious disease. Wound is related to previous postoperative mesh infection with subsequent mesh removal. X-rays were normal. White blood cell count 18. Patient does tend to run with an elevated white blood cell count. Review of Systems The patient denies any acute changes in vision or hearing, no dysphagia or odynophagia, no chest pain or shortness of breath, no dysuria or hematuria, no headache, no runny nose, no rectal bleeding or melena, no unexplained weight loss Past Medical History Past Medical History: Atrial Fibrillation, Coronary Artery Disease (CAD), Diabetes Mellitus, Hyperlipidemia, Hypertension, Memory Impairment, Osteoarthritis (OA), Thyroid Disorder, Vascular Disorder Additional Past Medical History / Comment(s): 01/18/19 incisional hernia repair- open with mesh and has drain, paroxysmal Afib, NIDDM type II takes metformin, PAD, decreased circulation to R lower extremity-pt states had several unsuccessful attempts at placing artificial artery, bowel surgery d/t blood clot to colon post operatively, frequent diarrhea, urinary incontinence, chronic elevated WBC, chronic low back pain/pinched nerve, bilateral shoulder pain-DJD, "forgetful", hypothyroid, vertigo at times History of Any Multi-Drug Resistant Organisms: ESBL, Other MDRO, 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; 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 Source:: Abdomen-VRE; Body Fluid Aspirate-ESBL Past Surgical History: Appendectomy, Bowel Resection, Breast Surgery, Cholecystectomy, Coronary Bypass/CABG, Heart Catheterization, Hernia Repair, Joint Replacement, Orthopedic Surgery Additional Past Surgical History / Comment(s): 01/18/19 incisional hernia repair- open with mesh, 12/11/17 CABG 4 vessel, 12/20/17 colectomy/ileostomy with reversal, R leg attempted bypasses with artificial artery which pt states were unsuccessful, L breast benign tumor removed, bilateral total knee arthroplasties, R rotator cuff repair, low back epidural injections, piccs-since removed. Past Anesthesia/Blood Transfusion Reactions: No Reported Reaction Additional Past Anesthesia/Blood Transfusion Reaction / Comm: Pt has recently received blood and also years ago received blood without reaction. Past Psychological History: Anxiety, Depression Additional Psychological History / Comment(s): Pt lives with her spouse in [place] and they winter in [place]. She lately has been using a walker to ambulate d/t weakness, but normally uses a cane. She no longer drives d/t rotator cuff problems, her spouse drives. She is otherwise independent. Smoking Status: Former smoker Past Alcohol Use History: None Reported Additional Past Alcohol Use History / Comment(s): Pt started smoking in 1964 and quit in 2007. She was a ppd smoker. Past Drug Use History: None Reported - Past Family History Mother Family Medical History: Cancer Additional Family Medical History / Comment(s): Uterine cancer. Father Family Medical History: Congestive Heart Failure (CHF) Medications and Allergies Home Medications Medication Instructions Recorded Confirmed Type DULoxetine HCL [Cymbalta] 60 mg PO HS 12/14/16 06/01/19 History Ergocalciferol (Vitamin D2) 50,000 unit PO COHEN 12/14/16 06/01/19 History [Vitamin D2] Amiodarone [Cordarone] 100 mg PO DAILY 03/02/18 06/01/19 History Furosemide [Lasix] 40 mg PO BID@0600,1400 03/02/18 06/01/19 History Latanoprost/Pf [Latanoprost 0.005% 1 drop BOTH EYES HS 03/02/18 06/01/19 History Eye Drop] Cilostazol [Pletal] 100 mg PO DAILY 11/15/18 06/01/19 History Metoprolol Tartrate [Lopressor] 50 mg PO AC-BID@0800,1700 11/15/18 06/01/19 History metFORMIN HCL [Glucophage] 500 mg PO AC-BID@0800,1700 11/15/18 06/01/19 History L.acidoph,Paracasei, B.lactis 1 cap PO AC-BID@0800,1700 03/05/19 06/01/19 History [Probiotic] Levothyroxine Sodium [Synthroid] 88 mcg PO DAILY@0600 03/05/19 06/01/19 History predniSONE 10 mg PO DAILY 03/05/19 06/01/19 History Ferrous Sulfate [Iron (65 MG 325 mg PO AC-SUPPER 03/30/19 06/01/19 History Elemental)] INSULIN ASPART (NovoLOG) [NovoLOG See Protocol SQ ACHS 03/30/19 06/01/19 History (formulary)] Nystatin 100,000Unit/gm Cream 1 applic TOPICAL BID 03/30/19 06/01/19 History [Mycostatin Cream] Loperamide [Imodium] 2 mg PO BID PRN 04/17/19 06/01/19 History Potassium Chloride ER [K-Dur 20] 20 meq PO AC-SUPPER 04/17/19 06/01/19 History Acetaminophen Tab [Tylenol] 650 mg PO Q6HR PRN tab 04/22/19 06/01/19 Rx Pantoprazole [Protonix] 40 mg PO DAILY #15 tablet. 04/22/19 06/01/19 Rx oxyCODONE ER [OxyCONTIN] 15 mg PO Q12H #4 tab 04/22/19 06/01/19 Rx Atorvastatin [Lipitor] 40 mg PO HS 06/01/19 06/01/19 History Losartan [Cozaar] 50 mg PO DAILY 06/01/19 06/01/19 History Allergies Allergy/AdvReac Type Severity Reaction Status Date / Time morphine Allergy Intermediate Itching Verified 06/01/19 11:38 Surgical - Exam Vital Signs Temp Pulse Resp BP Pulse Ox 98.2 F 102 H 18 144/98 98 05/31/19 17:37 05/31/19 17:37 05/31/19 17:37 05/31/19 17:37 05/31/19 17:37 Physical exam: General: Well-developed, well-nourished HEENT: Normocephalic, sclerae nonicteric Abdomen: Nontender, nondistended, midline wound with wound VAC in place, wound bed approximately 8 x 8 cm Extremities: No edema Neuro: Alert and oriented Results - Labs 05/31/19 19:00 05/31/19 19:00 Abnormal Lab Results - Last 24 Hours (Table) 05/31/19 05/31/19 05/31/19 Range/Units 19:00 19:00 19:00 WBC 18.8 H (3.8-10.6) k/uL Hgb 10.2 L (11.4-16.0) gm/dL Hct 33.4 L (34.0-46.0) % MCV 78.0 L (80.0-100.0) fL MCH 23.9 L (25.0-35.0) pg MCHC 30.7 L (31.0-37.0) g/dL RDW 18.1 H (11.5-15.5) % Plt Count 576 H (150-450) k/uL Neutrophils # 15.0 H (1.3-7.7) k/uL APTT (22.0-30.0) sec Sodium 133 L (137-145) mmol/L Potassium 3.0 L (3.5-5.1) mmol/L Chloride 94 L (98-107) mmol/L Glucose 131 H (74-99) mg/dL POC Glucose (mg/dL) (75-99) mg/dL Plasma Lactic Acid Frederick 3.2 H* (0.7-2.0) mmol/L Magnesium 1.5 L (1.6-2.3) mg/dL Alkaline Phosphatase 185 H (38-126) U/L Creatine Kinase 22 L (30-135) U/L Urine Glucose (UA) (Negative) Ur Leukocyte Esterase (Negative) Urine WBC (0-5) /hpf Urine Mucus (None) /hpf 05/31/19 05/31/19 06/01/19 Range/Units 19:00 21:37 06:53 WBC (3.8-10.6) k/uL Hgb (11.4-16.0) gm/dL Hct (34.0-46.0) % MCV (80.0-100.0) fL MCH (25.0-35.0) pg MCHC (31.0-37.0) g/dL RDW (11.5-15.5) % Plt Count (150-450) k/uL Neutrophils # (1.3-7.7) k/uL APTT 20.6 L (22.0-30.0) sec Sodium (137-145) mmol/L Potassium (3.5-5.1) mmol/L Chloride (98-107) mmol/L Glucose (74-99) mg/dL POC Glucose (mg/dL) 115 H (75-99) mg/dL Plasma Lactic Acid Frederick (0.7-2.0) mmol/L Magnesium (1.6-2.3) mg/dL Alkaline Phosphatase (38-126) U/L Creatine Kinase (30-135) U/L Urine Glucose (UA) 1+ H (Negative) Ur Leukocyte Esterase Large H (Negative) Urine WBC 7 H (0-5) /hpf Urine Mucus Rare H (None) /hpf 06/01/19 Range/Units 11:33 WBC (3.8-10.6) k/uL Hgb (11.4-16.0) gm/dL Hct (34.0-46.0) % MCV (80.0-100.0) fL MCH (25.0-35.0) pg MCHC (31.0-37.0) g/dL RDW (11.5-15.5) % Plt Count (150-450) k/uL Neutrophils # (1.3-7.7) k/uL APTT (22.0-30.0) sec Sodium (137-145) mmol/L Potassium (3.5-5.1) mmol/L Chloride (98-107) mmol/L Glucose (74-99) mg/dL POC Glucose (mg/dL) 175 H (75-99) mg/dL Plasma Lactic Acid Frederikc (0.7-2.0) mmol/L Magnesium (1.6-2.3) mg/dL Alkaline Phosphatase (38-126) U/L Creatine Kinase (30-135) U/L Urine Glucose (UA) (Negative) Ur Leukocyte Esterase (Negative) Urine WBC (0-5) /hpf Urine Mucus (None) /hpf Diabetes panel 05/31/19 Range/Units 19:00 Sodium 133 L (137-145) mmol/L Potassium 3.0 L (3.5-5.1) mmol/L Chloride 94 L (98-107) mmol/L Carbon Dioxide 29 (22-30) mmol/L BUN 14 (7-17) mg/dL Creatinine 0.65 (0.52-1.04) mg/dL Glucose 131 H (74-99) mg/dL Calcium 9.7 (8.4-10.2) mg/dL AST 27 (14-36) U/L ALT 24 (4-34) U/L Alkaline Phosphatase 185 H (38-126) U/L Total Protein 6.4 (6.3-8.2) g/dL Albumin 3.8 (3.5-5.0) g/dL Calcium panel 05/31/19 Range/Units 19:00 Calcium 9.7 (8.4-10.2) mg/dL Phosphorus 3.4 (2.5-4.5) mg/dL Albumin 3.8 (3.5-5.0) g/dL Pituitary panel 05/31/19 Range/Units 19:00 Sodium 133 L (137-145) mmol/L Potassium 3.0 L (3.5-5.1) mmol/L Chloride 94 L (98-107) mmol/L Carbon Dioxide 29 (22-30) mmol/L BUN 14 (7-17) mg/dL Creatinine 0.65 (0.52-1.04) mg/dL Glucose 131 H (74-99) mg/dL Calcium 9.7 (8.4-10.2) mg/dL Adrenal panel 05/31/19 Range/Units 19:00 Sodium 133 L (137-145) mmol/L Potassium 3.0 L (3.5-5.1) mmol/L Chloride 94 L (98-107) mmol/L Carbon Dioxide 29 (22-30) mmol/L BUN 14 (7-17) mg/dL Creatinine 0.65 (0.52-1.04) mg/dL Glucose 131 H (74-99) mg/dL Calcium 9.7 (8.4-10.2) mg/dL Total Bilirubin 0.5 (0.2-1.3) mg/dL AST 27 (14-36) U/L ALT 24 (4-34) U/L Alkaline Phosphatase 185 H (38-126) U/L Total Protein 6.4 (6.3-8.2) g/dL Albumin 3.8 (3.5-5.0) g/dL Assessment and Plan (1) Acute vomiting Narrative/Plan: Patient with acute vomiting. Doing better currently. Continue antibiotics per infectious disease. Continue workup of elevated white blood cell count. Continue wound care in the form of wound VAC therapy. Current Visit: No Status: Acute Code(s): R11.10 - VOMITING, UNSPECIFIED SNOMED Code(s): 94944091
[2019-06-01] MEDS: IOPAMIDOL CONTRAST (ORAL USE) VIAL PO PRN ×2 (15:20→16:31)
[2019-06-01 16:38] LABS: Glucose,Whole Blood 191 mg/dL (75-99)
[2019-06-01] MEDS: FERROUS SULFATE 325 MG TAB PO SCH (16:52)
[2019-06-01] MEDS: POTASSIUM CHLORIDE ER 20 MEQ TAB.ER PO SCH (16:52)
[2019-06-01] MEDS: METOPROLOL TARTRATE 50 MG TAB PO SCH (16:52)
[2019-06-01] MEDS: LACTOBACILLUS ACIDOPH & BULGAR 1 EACH PACKET PO SCH (16:53)
[2019-06-01] MEDS ORDERED: metFORMIN 500 MG TAB PO SCH (17:00)
--- NOTE | 2019-06-01 17:12 | P.HPIM ---
History of Present Illness H&P Date: 06/01/19 Chief Complaint: Abdominal discomfort History of presenting complaint: This is a pleasant 74-year-old patient of Dr. Alcala. Chronic stable medical conditions include atrial fibrillation, coronary artery disease, diabetes, hyperlipidemia, hypertension, osteoarthritis, hypothyroid, peripheral arterial disease. December 2017 had a "coronary bypass, complicated by ischemic bowel resulting in the ostomy and a wound VAC. Patient subsequently had intra- abdominal abscess and required protracted course of antibiotics. March 2018 had an abscess and patient did have a MASTER drain in place for the same. December 2018 patient had the incisional hernia with mesh placed. By Dr. Montoya. Patient did undergo admission for significant drainage from MASTER drain. admitted on March 03 and discharged on March 13 and during that admission infected mesh was removed. Patient had a wound VAC placed. Patient was discharged on March 13 with 2 week course of IV daptomycin, IV Invanz, and Bactrim. Wound cultures had grown S maltophilia, VRE, staph epidermidis. Denise ent April 01 admitted with delirium. Dose of OxyContin was cut back. Since then patient was in [place] visiting her son in law and was admitted to the hospital after she became sick. Received antibiotics. Patient now presents with elevated white count some abdominal discomfort and feeling out of sorts. Appetite has been waxing and waning. Patient's wound VAC is changed every 3 days. No obvious fever or chills. Normally has 1-2 bowel movements a day. Review of systems: GEN.: Tired EYES: None HEENT: None NECK: None RESPIRATORY: None CARDIOVASCULAR: None GASTROINTESTINAL: As above GENITOURINARY: None MUSCULOSKELETAL: Chronic joint pains LYMPHATICS: None HEMATOLOGICAL: None PSYCHIATRY: None NEUROLOGICAL: None Past medical history: Coronary artery disease with bypass, acute ischemic bowel with perforation, paroxysmal atrial fibrillation, peripheral artery disease, hypothyroid, diabetes mellitus type 2, chronic low back pain from arthritis, depression, hyperlipidemia, hypertension, recurrent intra-abdominal abscess,removal of infected abdominal mesh Social history: Smoked a pack a day for 43 years. Stopped in 2007 alcohol rarely. . Lives in [place] with the . Family history: Uterine cancer Physical examination: VITAL SIGNS: 98.2, 102, 18, 144/98, 98% on room air GENERAL: Laying in bed, slightly uncomfortable EYES: Pupils equal. Conjunctiva pale HEENT: External appearance of nose and ears normal, oral cavity dry NECK: JVD unable to assess; masses not palpable. HEART: First and second heart sounds are normal; some edema. LUNGS: Respiratory rate normal; decreased breath sounds. ABDOMEN: Soft, wound VAC in place. Minimal tenderness, no guarding or rigidity, liver spleen not palpable, PSYCH: AAO 3, motor affect normal NEUROLOGICAL: Cranial nerves grossly intact, SENSATION grossly intact INVESTIGATIONS, reviewed in the clinical context: White count 8.8 hemoglobin 10.2 platelets 576 potassium 3 creatinine 0.65 lactic acid 3.2 albumin 3.8 EKG tracing personally reviewed by me-normal sinus rhythm nonspecific changes Abdominal x-ray-will acute reported Assessment: -Patient rather extensive medical history regarding intra-abdominal abscess from ischemic bowel with multiple episodes of the same, the wound VAC in place. Now presents with episodes of vomiting 3 times in one day. Abdominal discomfort. Elevated white count. Concern about intra-abdominal abscess. Abdominal examination is relatively benign. Proceed to a computed tomography scan of the abdomen. 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 Monahan earlier today. We'll proceed to computed tomography scan of the abdomen. Home medications resumed. Dr. Montoya consulted from general surgery. Care was discussed with the patient. Wound VAC to continue. Started and IV ceftriaxone. Diet is on clear liquids for currently. Lovenox for DVT prophylaxis. Past Medical History Past Medical History: Atrial Fibrillation, Coronary Artery Disease (CAD), Diabetes Mellitus, Hyperlipidemia, Hypertension, Memory Impairment, Osteoarthritis (OA), Thyroid Disorder, Vascular Disorder Additional Past Medical History / Comment(s): 01/18/19 incisional hernia repair- open with mesh and has drain, paroxysmal Afib, NIDDM type II takes metformin, P AD, decreased circulation to R lower extremity-pt states had several unsuccessful attempts at placing artificial artery, bowel surgery d/t blood clot to colon post operatively, frequent diarrhea, urinary incontinence, chronic elevated WBC, chronic low back pain/pinched nerve, bilateral shoulder pain-DJD, "forgetful", hypothyroid, vertigo at times History of Any Multi-Drug Resistant Organisms: ESBL, Other MDRO, VRE Date of last positivie culture/infection: 03/06/19 VRE; 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 Source:: Abdomen-VRE; Body Fluid Aspirate-ESBL Past Surgical History: Appendectomy, Bowel Resection, Breast Surgery, Cholecystectomy, Coronary Bypass/CABG, Heart Catheterization, Hernia Repair, Joint Replacement, Orthopedic Surgery Additional Past Surgical History / Comment(s): 01/18/19 incisional hernia repair- open with mesh, 12/11/17 CABG 4 vessel, 12/20/17 colectomy/ileostomy with reversal, R leg attempted bypasses with artificial artery which pt states were unsuccessful, L breast benign tumor removed, bilateral total knee arthroplasties, R rotator cuff repair, low back epidural injections, piccs-since removed. Past Anesthesia/Blood Transfusion Reactions: No Reported Reaction Additional Past Anesthesia/Blood Transfusion Reaction / Comment(s): Pt has recently received blood and also years ago received blood without reaction. Past Psychological History: Anxiety, Depression Additional Psychological History / Comment(s): Pt lives with her spouse in [place] and they winter in [place]. She lately has been using a walker to ambulate d/t weakness, but normally uses a cane. She no longer drives d/t rotator cuff problems, her spouse drives. She is otherwise independent. Smoking Status: Former smoker Past Alcohol Use History: None Reported Additional Past Alcohol Use History / Comment(s): Pt started smoking in 1964 and quit in 2007. She was a ppd smoker. Past Drug Use History: None Reported - Past Family History Mother Family Medical History: Cancer Additional Family Medical History / Comment(s): Uterine cancer. Father Family Medical History: Congestive Heart Failure (CHF) Medications and Allergies Home Medications Medication Instructions Recorded Confirmed Type DULoxetine HCL [Cymbalta] 60 mg PO HS 12/14/16 06/01/19 History Ergocalciferol (Vitamin D2) 50,000 unit PO COHEN 12/14/16 06/01/19 History [Vitamin D2] Amiodarone [Cordarone] 100 mg PO DAILY 03/02/18 06/01/19 History Furosemide [Lasix] 40 mg PO BID@0600,1400 03/02/18 06/01/19 History Latanoprost/Pf [Latanoprost 0.005% 1 drop BOTH EYES HS 03/02/18 06/01/19 History Eye Drop] Cilostazol [Pletal] 100 mg PO DAILY 11/15/18 06/01/19 History Metoprolol Tartrate [Lopressor] 50 mg PO AC-BID@0800,1700 11/15/18 06/01/19 History metFORMIN HCL [Glucophage] 500 mg PO AC-BID@0800,1700 11/15/18 06/01/19 History L.acidoph,Paracasei, B.lactis 1 cap PO AC-BID@0800,1700 03/05/19 06/01/19 History [Probiotic] Levothyroxine Sodium [Synthroid] 88 mcg PO DAILY@0600 03/05/19 06/01/19 History predniSONE 10 mg PO DAILY 03/05/19 06/01/19 History Ferrous Sulfate [Iron (65 MG 325 mg PO AC-SUPPER 03/30/19 06/01/19 History Elemental)] INSULIN ASPART (NovoLOG) [NovoLOG See Protocol SQ ACHS 03/30/19 06/01/19 History (formulary)] Nystatin 100,000Unit/gm Cream 1 applic TOPICAL BID 03/30/19 06/01/19 History [Mycostatin Cream] Loperamide [Imodium] 2 mg PO BID PRN 04/17/19 06/01/19 History Potassium Chloride ER [K-Dur 20] 20 meq PO AC-SUPPER 04/17/19 06/01/19 History Acetaminophen Tab [Tylenol] 650 mg PO Q6HR PRN tab 04/22/19 06/01/19 Rx Pantoprazole [Protonix] 40 mg PO DAILY #15 tablet.dr 04/22/19 06/01/19 Rx oxyCODONE ER [OxyCONTIN] 15 mg PO Q12H #4 tab 04/22/19 06/01/19 Rx Atorvastatin [Lipitor] 40 mg PO HS 06/01/19 06/01/19 History Losartan [Cozaar] 50 mg PO DAILY 06/01/19 06/01/19 History Allergies Allergy/AdvReac Type Severity Reaction Status Date / Time morphine Allergy Intermediate Itching Verified 06/01/19 11:38 Physical Exam Vitals: Vital Signs Temp Pulse Pulse Resp BP BP Pulse Ox 06/01/19 07:25 16 06/01/19 07:00 98.0 F 80 16 124/66 97 06/01/19 02:23 98.6 F 83 12 122/79 98 06/01/19 00:59 83 18 06/01/19 00:29 98.5 F 92 12 143/81 100 05/31/19 23:38 18 05/31/19 22:19 91 19 133/72 100 05/31/19 17:37 98.2 F 102 H 18 144/98 98 Intake and Output 05/31/19 06/01/19 06/01/19 22:59 06:59 14:59 Other: Voiding Method Bedpan Toilet Toilet Bedpan Bedpan # Voids 1 Weight 81.647 kg 81.647 kg Results CBC & Chem 7: 05/31/19 19:00 05/31/19 19:00 Labs: Abnormal Lab Results - Last 24 Hours (Table) 05/31/19 05/31/19 05/31/19 Range/Units 19:00 19:00 19:00 WBC 18.8 H (3.8-10.6) k/uL Hgb 10.2 L (11.4-16.0) gm/dL Hct 33.4 L (34.0-46.0) % MCV 78.0 L (80.0-100.0) fL MCH 23.9 L (25.0-35.0) pg MCHC 30.7 L (31.0-37.0) g/dL RDW 18.1 H (11.5-15.5) % Plt Count 576 H (150-450) k/uL Neutrophils # 15.0 H (1.3-7.7) k/uL APTT (22.0-30.0) sec Sodium 133 L (137-145) mmol/L Potassium 3.0 L (3.5-5.1) mmol/L Chloride 94 L (98-107) mmol/L Glucose 131 H (74-99) mg/dL POC Glucose (mg/dL) (75-99) mg/dL Plasma Lactic Acid Frederick 3.2 H* (0.7-2.0) mmol/L Magnesium 1.5 L (1.6-2.3) mg/dL Alkaline Phosphatase 185 H (38-126) U/L Creatine Kinase 22 L (30-135) U/L Urine Glucose (UA) (Negative) Ur Leukocyte Esterase (Negative) Urine WBC (0-5) /hpf Urine Mucus (None) /hpf 05/31/19 05/31/19 06/01/19 Range/Units 19:00 21:37 06:53 WBC (3.8-10.6) k/uL Hgb (11.4-16.0) gm/dL Hct (34.0-46.0) % MCV (80.0-100.0) fL MCH (25.0-35.0) pg MCHC (31.0-37.0) g/dL RDW (11.5-15.5) % Plt Count (150-450) k/uL Neutrophils # (1.3-7.7) k/uL APTT 20.6 L (22.0-30.0) sec Sodium (137-145) mmol/L Potassium (3.5-5.1) mmol/L Chloride (98-107) mmol/L Glucose (74-99) mg/dL POC Glucose (mg/dL) 115 H (75-99) mg/dL Plasma Lactic Acid Frederick (0.7-2.0) mmol/L Magnesium (1.6-2.3) mg/dL Alkaline Phosphatase (38-126) U/L Creatine Kinase (30-135) U/L Urine Glucose (UA) 1+ H (Negative) Ur Leukocyte Esterase Large H (Negative) Urine WBC 7 H (0-5) /hpf Urine Mucus Rare H (None) /hpf Thrombosis Risk Factor Assmnt - Choose All That Apply Any of the Below Risk Factors Present?: Yes Each Factor Represents 1 point: Obesity (BMI >25) Other Risk Factors: Yes Each Risk Factor Represents 2 Points: Age 61-74 years Thrombosis Risk Factor Assessment Total Risk Factor Score: 3 Thrombosis Risk Factor Assessment Level: Moderate Risk
[2019-06-01 20:31] LABS: Glucose,Whole Blood 156 mg/dL (75-99)
--- NOTE | 2019-06-01 20:39 | CT ---
EXAMINATION TYPE: CT abdomen pelvis w con DATE OF EXAM: 06/01/2019 COMPARISON: 04/17/2019 HISTORY: 74-year-old female abdominal pain, fever TECHNIQUE: Contiguous axial scanning of the abdomen and pelvis following administration of 100 ml Iso amy 300 IV contrast. Delayed images through the kidneys and coronal/sagittal reconstructions perform ed. CT DLP: 1826.2 mGycm Automated exposure control for dose reduction was used. FINDINGS: Median sternotomy wires. Heart normal size without pericardial effusion. Coronary artery calcificatio ns are present. New small right pleural effusion. Some strandy atelectasis at the lung bases. Hypodensity along the anterior falciform ligament likely focal fat. A few scattered calcified granulo mas within the liver. More numerous calcified granulomas within the spleen with an inferior splenule. Cholecystectomy clips. Portal venous system is patent. No biliary ductal dilatation. Stable thickening lateral limb left adrenal gland. Stable 1 cm hypodensity anterior mid pole left kid beronica too small for accurate CT characterization, likely cyst. Similar additional probable cysts upper pole left kidney measuring 1.3 cm. Right kidney, right adrenal gland, atrophic pancreas show no gross abnormal body. No dilated small bowel, free fluid, or free air. No mesenteric or retroperitoneal lymphadenopathy seen. There seems to have been prior right hemicolectomy with ileocolonic anastomosis at the level of the m idtransverse colon. Moderate stool within the colon. Sigmoid diverticulosis. Some stranding along the proximal sigmoid, axial image 55 and 56 could represent mild inflammation or prominent pericolonic v essels. The latter seems favored when correlating with the sagittal series. Moderate atherosclerotic calcifications abdominal aorta and iliac arteries. Bladder is urine distended. Uterus is anteverted. Pelvic phleboliths. Suspect visualization of small left ovary. Right ovary not clearly seen. No abnormal fluid collection in the pelvis or pelvic lympha denopathy. Large ventral abdominal wound with overlying wound VAC. The tissues have come together significantly as compared to 04/17/2019. A 3.2 cm wide and 3.5 cm craniocaudal defect remains that is also filled w ith some low density tissue, possible granulation tissue. Similar thickening of soft tissues just overlying the superficial fascia measuring up to 1.2 cm thick . Probable scarring granulation tissue. No well-formed discrete fluid collection is identified. Bones: Mild degenerative changes of the hips. Degenerated reverse S-shaped scoliosis lumbar spine. Gr laci 1 retrolisthesis at L3-L4 grade 1 anterolisthesis at L4-L5. IMPRESSION: 1. LARGE VENTRAL ABDOMINAL WOUND HAS COME TOGETHER SIGNIFICANTLY IN THE INTERVAL. 3.5 X 3.2 CM 3.5 X 3.2 CM DEFECT OF THE SUBCUTANEOUS LAYER REMAINS BUT EVEN THIS IS FILLED WITH LOW-DENSITY MATERIAL, PO SSIBLE GRANULATION TISSUE. 2. BROAD-BASED THICKENING MEASURING UP TO 1.2 CM THICK OVERLYING THE ANTERIOR SUPERFICIAL FASCIA PROB ABLY REPRESENTS SCARRING. PLATELIKE FLUID IS DIFFICULT TO ENTIRELY EXCLUDE BUT CONSIDERED LESS LIKELY THIS BROAD-BASED THICKENING WAS ALSO PRESENT ON THE 04/17/2019 EXAM. NO DISCRETE WELL-FORMED FLUI D COLLECTION IS OTHERWISE SEEN. IF CONCERN FOR INFECTION AT THIS SITE, CONSIDER TARGETED ULTRASOUND T O DETERMINE IF THIS REPRESENTS FLUID. 3. STATUS POST RIGHT HEMICOLECTOMY WITH ILEOCOLONIC ANASTOMOSIS OF THE TRANSVERSE COLON. THERE IS SIG MOID DIVERTICULOSIS WITH EITHER PROMINENT PERICOLONIC VESSELS ALONG THE PROXIMAL SIGMOID COLON VERSUS MILD INFLAMMATION. CLINICALLY CORRELATE FOR ANY SYMPTOMS OF MILD ACUTE DIVERTICULITIS. 4. NEW SMALL RIGHT PLEUR
[2019-06-01] MEDS: LATANOPROST 0.005% OPHTH DROPS 2.5 ML BTL BOTH EYES SCH (20:43)
[2019-06-01] MEDS: DULoxetine HCL 60 MG CAPSULE.DR PO SCH (20:44)
[2019-06-01] MEDS: ATORVASTATIN 40 MG TAB PO SCH (20:44)
[2019-06-01] MEDS: metroNIDAZOLE 500 MG TAB PO SCH (22:22)
[2019-06-02] MEDS: HYDROmorphone 1 MG/ML 1 ML SYRINGE IVP PRN ×5 (00:01→22:19)
[2019-06-02] MEDS: SODIUM CHLORIDE 0.9% 1,000 ML IV SCH ×2 (05:37→06:07)
[2019-06-02] MEDS: LEVOTHYROXINE 88 MCG TAB PO SCH (06:03)
[2019-06-02] MEDS: FUROSEMIDE 40 MG TAB PO SCH ×2 (06:03→13:57)
[2019-06-02 07:08] LABS: Glucose,Whole Blood 132 mg/dL (75-99)
[2019-06-02] MEDS: CILOSTAZOL 100 MG TAB PO SCH (08:20)
[2019-06-02] MEDS: oxyCODONE ER 15 MG TAB.ER.12H PO SCH ×2 (08:21→20:54)
[2019-06-02] MEDS: predniSONE 10 MG TAB PO SCH (08:21)
[2019-06-02] MEDS: LOSARTAN 50 MG TAB PO SCH (08:21)
[2019-06-02] MEDS: metroNIDAZOLE 500 MG TAB PO SCH ×3 (08:21→22:16)
[2019-06-02] MEDS: ENOXAPARIN 40 MG/0.4 ML SYRINGE SQ SCH (08:21)
[2019-06-02] MEDS: METOPROLOL TARTRATE 50 MG TAB PO SCH ×2 (08:21→16:56)
[2019-06-02] MEDS: AMIODARONE 100 MG TAB PO SCH (08:22)
[2019-06-02] MEDS: INSULIN ASPART (NovoLOG) 100 UNIT/ML VIAL SQ SCH ×4 (08:47→21:02)
[2019-06-02] MEDS: PANTOPRAZOLE 40 MG/10 ML VIAL IV SCH (09:00)
[2019-06-02] MEDS: LACTOBACILLUS ACIDOPH & BULGAR 1 EACH PACKET PO SCH ×2 (09:09→16:56)
--- NOTE | 2019-06-02 09:26 | CONS ---
CONSULTATION DATE OF SERVICE: 06/01/2019 REASON FOR CONSULTATION: Leukocytosis and . HISTORY OF PRESENT ILLNESS: The patient is a 74 -year-old female in this patient who did have a history of infected abdominal wall mesh, status post removal of the same with resultant abdominal wound, currently being treated with a wound VAC. The [facility] and the wound looks clean and the patient was doing well. The patient mentioned the next day she did follow up with her PCP who did a CBC on her and noted that her white count was elevated. Yesterday, the patient started having an episode of vomiting and unable to keep anything down. She did have some chills but no high-grade fever. No urinary symptoms. No chest pain, shortness of breath or cough. Denies any worsening abdominal pain. No diarrhea. With these symptoms, the patient presented to the ER. On arrival to the ER, the patient did have acute abdominal series which shows no active cardiopulmonary disease. Nonacute abdomen. The patient did have elevated white count of 18.8. The patient's urine did show slight leukocyte esterase with only 7 WBC. Influenza serology was negative. The patient was started on Rocephin and has been admitted to the hospital. Infectious Disease was consulted for further recommendations regarding antibiotic therapy. REVIEW OF SYSTEMS: Positive points have been mentioned in HPI. Rest of the systems are negative. PAST MEDICAL HISTORY: Atrial fibrillation, coronary artery disease, diabetes mellitus, hypertension, hyperlipidemia, osteoarthritis, hypothyroidism, did have an infected abdominal mesh, status post removal of the same. PAST SURGICAL HISTORY: Past surgical history of coronary artery bypass grafting, appendectomy, bowel resection, breast surgery, cholecystectomy, PTCA, stent, joint replacement, hernia repair, abdominal surgery, removal of mesh. SOCIAL HISTORY: Remote history of smoking. The patient quit back in 2007. No drinking or drug use. FAMILY HISTORY: Mother with history of uterine cancer. Father history of congestive heart failure. ALLERGIES: MORPHINE. MEDICATIONS: The patient is currently on Tylenol, albuterol, Lipitor, Rocephin 1 g q.12h. she is on Cymbalta, Lovenox, vitamin D2, iron sulfate, Lasix, Dilaudid, NovoLog, Lactinex, Synthroid, Cozaar, Lopressor, Protonix, K-Dur, prednisone. PHYSICAL EXAMINATION: On examination, her blood pressure is 121/72 with a pulse of 79, temperature 98.1. She is 100% on room air. General description is an elderly female lying in bed in no distress. No tachypnea or accessory muscles for respiration use. HEENT examination is slight pallor. No scleral icterus. Oral mucosal membranes dry. No pharyngeal erythema or thrush. Neck: Trachea central. No thyromegaly. Lungs unlabored breathing. Clear to auscultation anteriorly. No wheeze or crackles. Heart S1, S2. Regular rate and rhythm. ABDOMEN: Soft, no tenderness. No guarding or rigidity. Abdominal wound is currently covered with wound VAC. EXTREMITIES: No edema of the feet. SKIN examination: No rash or mass palpable. NEUROLOGICAL: Patient is awake, alert, oriented x3. Mood and affect normal. LABS: Hemoglobin is 10.2, white count of 18.8. BUN of 14, creatinine 0.65, lactic acid 3.2. Urine mildly positive. Influenza serology was negative. Subsequently did have a CT abdomen and pelvis completed with concern for mild diverticulitis. IMPRESSION/PLAN: Patient admitted to the hospital with elevated white count along with vomiting. Source could be likely diverticulitis as the patient urinalysis was not significantly positive. Underlying urinary tract infection not entirely excluded. The patient had abdominal wound examined on Monday that did not show any evidence of any purulence or cellulitis. PLAN: 1. Rocephin, dose to be adjusted to 2 g daily and we will add Flagyl 5 mg IV q.8 hours. 2. Continue local wound care with abdominal wound with wound VAC to be changed on Monday, Monday and Monday. 3. IV fluids. 4. We will follow up on clinical condition and culture to further adjust medication if needed. Thank you for this consultation. We will follow this patient along with you. MMODL / IJN: [id number] /
--- NOTE | 2019-06-02 09:45 | P.PN ---
Subjective Progress Note Date: 06/02/19 Principal diagnosis: Acute vomiting Patient doing better today. No nausea or vomiting. She is complaining of some right-sided chest pain. She states she fell on that area. Tolerating diet. Once more to eat. Objective - Vital Signs Vital signs: Vital Signs Temp 98.3 F 06/02/19 07:00 Pulse 65 06/02/19 07:00 Resp 16 06/02/19 08:15 BP 135/70 06/02/19 07:00 Pulse Ox 94 L 06/02/19 01:45 Intake & Output 06/01/19 06/02/19 06/02/19 18:59 06:59 18:59 Intake Total 250 Output Total 800 Balance -550 Intake: Oral 250 Output: Urine 800 Other: Voiding Method Toilet Toilet Bedpan Bedpan # Voids 2 - Exam Abdomen: Soft, nontender, nondistended Right chest wall with mild tenderness, no ecchymosis or erythema noted no crepitus - Labs CBC & Chem 7: 05/31/19 19:00 05/31/19 19:00 Labs: Abnormal Lab Results - Last 24 Hours (Table) 06/01/19 06/01/19 06/01/19 Range/Units 11:33 16:37 20:30 POC Glucose (mg/dL) 175 H 191 H 156 H (75-99) mg/dL 06/02/19 Range/Units 07:06 POC Glucose (mg/dL) 132 H (75-99) mg/dL Microbiology - Last 24 Hours (Table) 05/31/19 19:00 Blood Culture - Preliminary Blood No Growth after 24 hours Assessment and Plan (1) Acute vomiting Narrative/Plan: Continue workup of right-sided chest pain. Advance diet. Continue local wound care with wound VAC. Continue antibiotics per infectious disease. Follow cultures. Current Visit: No Status: Acute Code(s): R11.10 - VOMITING, UNSPECIFIED SNOMED Code(s): 26200327
--- NOTE | 2019-06-02 10:46 | US ---
EXAMINATION TYPE: US venous doppler duplex LE DATE OF EXAM: 06/02/2019 10:23 AM COMPARISON: Previous study dated 12/08/2017. CLINICAL HISTORY: rule out dvt. SIDE PERFORMED: Bilateral TECHNIQUE: The lower extremity deep venous system is examined utilizing real time linear array sonog yoel with graded compression, doppler sonography and color-flow sonography. VESSELS IMAGED: External Iliac Vein (EIV) Common Femoral Vein Deep Femoral Vein Greater Saphenous Vein * Femoral Vein Popliteal Vein Small Saphenous Vein * Proximal Calf Veins, not seen (* superficial vessels) Patient of large body habitus Right Leg: Negative for DVT Left Leg: Negative for DVT No popliteal fossa lesion is seen. IMPRESSION: THIS EXAMINATION IS NEGATIVE FOR DVT IN BOTH LEGS.
[2019-06-02 10:47] LABS: African American GFR (CKD) >90 (>60 ml/min/1.73 sqM); Anion Gap 6 mmol/L; Blood Urea Nitrogen 4 mg/dL (7-17); Calcium 8.1 mg/dL (8.4-10.2); Carbon Dioxide 27 mmol/L (22-30); Chloride 100 mmol/L (98-107); Glucose 252 mg/dL (74-99); Non-African American GFR(CKD) >90 (>60 ml/min/1.73 sqM); Potassium 2.9 mmol/L (3.5-5.1); Sodium 133 mmol/L (137-145)
[2019-06-02 11:30] LABS: Glucose,Whole Blood 190 mg/dL (75-99)
[2019-06-02] MEDS ORDERED: ERGOCALCIFEROL 50,000 UNIT CAP PO SCH (12:13)
[2019-06-02] MEDS ORDERED: ENOXAPARIN 40 MG/0.4 ML SYRINGE SQ STA (12:26)
[2019-06-02] MEDS ORDERED: Potassium Replacement Protocol 1 EACH MISC MISCELLANE PRN (14:27)
[2019-06-02] MEDS: POTASSIUM CHLORIDE ER 20 MEQ TAB.ER PO SCH ×3 (14:41→16:56)
[2019-06-02 16:39] LABS: Glucose,Whole Blood 256 mg/dL (75-99)
[2019-06-02] MEDS: FERROUS SULFATE 325 MG TAB PO SCH (16:56)
--- NOTE | 2019-06-02 18:03 | CT ---
EXAMINATION TYPE: CT chest angio for PE DATE OF EXAM: 06/02/2019 COMPARISON: Lower extremity ultrasound of the same date and CT thorax dated 12/08/2017 HISTORY: Right-sided chest pain with deep inspiration CT DLP: 717.4 mGycm. Automated Exposure Control for Dose Reduction was Utilized. CONTRAST: CTA scan of the thorax is performed with IV Contrast, patient injected with 88cc mL of Isovue 370, pu lmonary embolism protocol. MIP Images are created on CT scanner and reviewed. FINDINGS: LUNGS: Small right pleural effusion is seen and very trace left pleural effusion with bibasilar atele ctasis. Groundglass opacity in the right frontal lobe is present on image 49 measuring 1.6 x 0.7 cm. This is new from 2018. Background mild emphysematous change with scattered apical blebs. MEDIASTINUM: Large calcified granulomas of the mediastinum from prior benign granulomatous disease. P ostsurgical change of prior coronary artery bypass grafting. There is satisfactory enhancement of the pulmonary artery and its branches, there is no CT evidence for pulmonary embolism. There are no gre ater than 1 cm hilar or mediastinal lymph nodes. No cardiomegaly or pericardial effusion is seen. OTHER: Benign calcified splenic granulomas. Partially visualized hypoattenuating left renal lesion is incompletely characterized. Cholecystectomy clips. Few scattered hepatic benign granulomas. Multiple old healed right-sided rib fractures. Mild degenerative change of the thoracic spine. IMPRESSION: 1. No evidence of pulmonary embolus. 2. Small right pleural effusion and trace left pleural effusion with bibasilar atelectasis. 3. Groundglass opacity of the right upper lung measuring 1.6 x 0.7 cm. This could be infectious, infl ammatory or neoplastic. Follow-up CT thorax is recommended in 3 months for reevaluation.
[2019-06-02] MEDS: ATORVASTATIN 40 MG TAB PO SCH (20:53)
[2019-06-02] MEDS: DULoxetine HCL 60 MG CAPSULE.DR PO SCH (20:53)
[2019-06-02] MEDS: ENOXAPARIN 80 MG/0.8 ML SYRINGE SQ SCH (20:54)
[2019-06-02] MEDS: LATANOPROST 0.005% OPHTH DROPS 2.5 ML BTL BOTH EYES SCH (20:55)
[2019-06-02 21:20] LABS: Glucose,Whole Blood 196 mg/dL (75-99)
--- NOTE | 2019-06-02 22:23 | P.PN ---
Progress Note - Text Progress Note Date: 06/02/19 Chief Complaint: Abdominal discomfort History of presenting complaint: This is a pleasant 74-year-old patient of Dr. Alcala. Chronic stable medical conditions include atrial fibrillation, coronary artery disease, diabetes, hyperlipidemia, hypertension, osteoarthritis, hypothyroid, peripheral arterial disease. December 2017 had a "coronary bypass, complicated by ischemic bowel resulting in the ostomy and a wound VAC. Patient subsequently had intra- abdominal abscess and required protracted course of antibiotics. March 2018 had an abscess and patient did have a MASTER drain in place for the same. December 2018 patient had the incisional hernia with mesh placed. By Dr. Montoya. Patient did undergo admission for significant drainage from MASTER drain. admitted on March 03 and discharged on March 13 and during that admission infected mesh was removed. Patient had a wound VAC placed. Patient was discharged on March 13 with 2 week course of IV daptomycin, IV Invanz, and Bactrim. Wound cultures had grown S maltophilia, VRE, staph epidermidis. Patient April 01 admitted with delirium. Dose of OxyContin was cut back. Since then patient was in [place] visiting her son in law and was admitted to the hospital after she became sick. Received antibiotics. Patient now presents with elevated white count some abdominal discomfort and feeling out of sorts. Appetite has been waxing and waning. Patient's wound VAC is changed every 3 days. No obvious fever or chills. Normally has 1-2 bowel movements a day. Hospital course: Admitted with leukocytosis and some abdominal pain. Computed tomography scan abdomen did not show any abscess. Started on liquid diet. Today-did tolerate a liquid diet. Just feels weak tired rundown. On IV antibiotics. This morning did complain of some right-sided chest pain somewhat sharp. No cough. No fever no chills. No shortness of breath. Computed tomography scan of the chest ordered to rule out PE. Review of systems: Was done for constitutional, cardiovascular, GI, pulmonary. relevant finding as above Active Medications Acetaminophen (Tylenol Tab) 650 mg PO Q6HR PRN PRN Reason: Mild Pain or Fever > 100.5 Amiodarone HCl (Cordarone) 100 mg PO DAILY [facility] Last Admin: 06/02/19 08:22 Dose: 100 mg Documented by: Atorvastatin Calcium (Lipitor) 40 mg PO HS [facility] Last Admin: 06/02/19 20:53 Dose: 40 mg Documented by: Cilostazol (Pletal) 100 mg PO DAILY [facility] Last Admin: 06/02/19 08:20 Dose: 100 mg Documented by: Duloxetine HCl (Cymbalta) 60 mg PO HS [facility] Last Admin: 06/02/19 20:53 Dose: 60 mg Documented by: Enoxaparin Sodium (Lovenox) 80 mg SQ Q12HR [facility] Last Admin: 06/02/19 20:54 Dose: 80 mg Documented by: Ergocalciferol (Vitamin D2) 50,000 unit PO COHEN [facility] Last Admin: 06/02/19 13:57 Dose: 50,000 unit Documented by: Ferrous Sulfate (Feosol) 325 mg PO AC-SUPPER [facility] Last Admin: 06/02/19 16:56 Dose: 325 mg Documented by: Furosemide (Lasix) 40 mg PO BID@0600,1400 [facility] Last Admin: 06/02/19 13:57 Dose: 40 mg Documented by: Hydromorphone HCl (Dilaudid) 1 mg IVP Q4HR PRN PRN Reason: Pain Last Admin: 06/02/19 14:01 Dose: 1 mg Documented by: Sodium Chloride (Saline 0.9%) 1,000 mls @ 130 mls/hr IV .Q7H42M [facility] Last Admin: 06/02/19 06:07 Dose: 130 mls/hr Documented by: Ceftriaxone Sodium 2 gm/ (Sodium Chloride) 50 mls @ 100 mls/hr IVPB Q24HR [facility] Last Admin: 06/02/19 10:21 Dose: 100 mls/hr Documented by: Insulin Aspart (Novolog) 0 unit SQ [facility]; Protocol Last Admin: 06/02/19 21:02 Dose: 3 unit Documented by: Lactobacillus Acidoph/Bulgaricus (Lactinex) 1 each PO AC-BID@0800,1700 [facility] Last Admin: 06/02/19 16:56 Dose: 1 each Documented by: Latanoprost (Xalatan 0.005%) 1 drops [facility] Last Admin: 06/02/19 20:55 Dose: 1 drops Documented by: Levothyroxine Sodium (Synthroid) 88 mcg PO DAILY@0600 [facility] Last Admin: 06/02/19 06:03 Dose: 88 mcg Documented by: Losartan Potassium (Cozaar) 50 mg PO DAILY [facility] Last Admin: 06/02/19 08:21 Dose: 50 mg Documented by: Metoprolol Tartrate (Lopressor) 50 mg PO AC-BID@0800,1700 [facility] Last Admin: 06/02/19 16:56 Dose: 50 mg Documented by: Metronidazole (Flagyl) 500 mg PO TID [facility] Last Admin: 06/02/19 22:16 Dose: 500 mg Documented by: Miscellaneous Information (Potassium Per Protocol) 1 each MISCELLANE DAILY PRN; Protocol PRN Reason: Per Protocol Oxycodone HCl (Oxycontin 15mg E.R.) 15 mg PO Q12HR [facility] Last Admin: 06/02/19 20:54 Dose: 15 mg Documented by: Pantoprazole Sodium (Protonix) 40 mg IV DAILY [facility] Last Admin: 06/02/19 09:00 Dose: 40 mg Documented by: Potassium Chloride (K-Dur 20) 20 meq PO AC-SUPPER [facility] Last Admin: 06/02/19 16:56 Dose: 20 meq Documented by: Prednisone () 10 mg PO DAILY [facility] Last Admin: 06/02/19 08:21 Dose: 10 mg Documented by: Physical examination: VITAL SIGNS: 98.9-53-51-1403-95% on room air GENERAL: Laying in bed, tired EYES: Pupils equal. Conjunctiva pale HEENT: External appearance of nose and ears normal, oral cavity dry NECK: JVD unable to assess; masses not palpable. HEART: First and second heart sounds are normal; some edema. LUNGS: Respiratory rate normal; decreased breath sounds. ABDOMEN: Soft, wound VAC in place. Minimal tenderness, no guarding or rigidity, liver spleen not palpable,bowel sounds present PSYCH: AAO 3, motor affect normal NEUROLOGICAL: Cranial nerves grossly intact, SENSATION grossly intact INVESTIGATIONS, reviewed in the clinical context: Potassium 2.9 creatinine 0.[address] chest-negative for PE Previous testing White count 8.8 hemoglobin 10.2 platelets 576 potassium 3 creatinine 0.65 lactic acid 3.2 albumin 3.8 EKG tracing personally reviewed by me-normal sinus rhythm nonspecific changes Abdominal x-ray-will acute reported computed tomography scan abdomen-no new significant findings Assessment: -Patient rather extensive medical history regarding intra-abdominal abscess from ischemic bowel with multiple episodes of the same, the wound VAC in place. Now presents with episodes of vomiting 3 times in one day. Abdominal discomfort. Elevated white count. Abdominal examination is relatively benign. computed tomography scan of the abdomen-unremarkable -Acute right chest pain. 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 Replace potassium. Change IV fluids to LR. Repeat labs. Replace second dose of Lasix with Aldactone.
[2019-06-03] MEDS: SODIUM CHLORIDE 0.9% 1,000 ML IV SCH ×3 (00:45→23:54)
[2019-06-03] MEDS: HYDROmorphone 1 MG/ML 1 ML SYRINGE IVP PRN ×2 (03:01→20:16)
[2019-06-03] MEDS: LEVOTHYROXINE 88 MCG TAB PO SCH (05:19)
[2019-06-03 07:22] LABS: Glucose,Whole Blood 180 mg/dL (75-99)
[2019-06-03] MEDS: METOPROLOL TARTRATE 50 MG TAB PO SCH ×2 (07:46→17:25)
[2019-06-03] MEDS: SPIRONOLACTONE 25 MG TAB PO SCH (07:46)
[2019-06-03] MEDS: ENOXAPARIN 80 MG/0.8 ML SYRINGE SQ SCH ×2 (07:46→20:15)
[2019-06-03] MEDS: predniSONE 10 MG TAB PO SCH (07:47)
[2019-06-03] MEDS: LACTOBACILLUS ACIDOPH & BULGAR 1 EACH PACKET PO SCH ×2 (07:47→17:26)
[2019-06-03] MEDS: metroNIDAZOLE 500 MG TAB PO SCH ×3 (07:47→20:16)
[2019-06-03] MEDS: LOSARTAN 50 MG TAB PO SCH (07:47)
[2019-06-03] MEDS: CILOSTAZOL 100 MG TAB PO SCH (07:47)
[2019-06-03] MEDS: FUROSEMIDE 40 MG TAB PO SCH (07:47)
[2019-06-03] MEDS: oxyCODONE ER 15 MG TAB.ER.12H PO SCH ×2 (07:48→23:54)
[2019-06-03] MEDS: PANTOPRAZOLE 40 MG/10 ML VIAL IV SCH (07:48)
[2019-06-03] MEDS: INSULIN ASPART (NovoLOG) 100 UNIT/ML VIAL SQ SCH ×4 (07:48→21:28)
[2019-06-03] MEDS: AMIODARONE 100 MG TAB PO SCH (07:52)
--- NOTE | 2019-06-03 10:13 | P.PN ---
Subjective Progress Note Date: 06/03/19 CHIEF COMPLAINT: Vomiting HISTORY OF PRESENT ILLNESS: Patient seen and examined this morning at the bedside. She reports some lower abdominal discomfort. Tolerating diet. Denies nausea or vomiting. Wound VAC remains intact. Labs from this morning are pending. Vital signs stable. She is afebrile. PHYSICAL EXAM: VITAL SIGNS: Reviewed. GENERAL: Well-developed in no acute distress. HEENT: No sclera icterus. Extraocular movements grossly intact. Moist buccal mucosa. Head is atraumatic, normocephalic. ABDOMEN: Soft. Nondistended. Minimal tenderness. Wound VAC intact. NEUROLOGIC: Alert and oriented. Cranial nerves II through XII grossly intact. ASSESSMENT: 1. Leukocytosis 2. Nausea and vomiting, resolved 3. History of incisional hernia repair,, treated by rectus sheath hemorrhage, December 2018 4. History of postoperative intra-abdominal abscess with removal of infected mesh, March 2019 PLAN: Continue wound vac Monitor WBC. Await lab results from this AM No surgical intervention recommended at this time Nurse practitioner note has been reviewed by physician. Signing provider agrees with the documented findings, assessment, and plan of care. Objective - Vital Signs Vital signs: Vital Signs Temp 98.5 F 06/03/19 07:00 Pulse 79 06/03/19 07:00 Resp 12 06/03/19 07:00 BP 161/87 06/03/19 07:00 Pulse Ox 97 06/03/19 07:00 Intake & Output 06/02/19 06/03/19 06/03/19 18:59 06:59 18:59 Output Total 800 700 Balance -800 -700 Output: Urine 800 700 Other: Voiding Method Toilet Bedpan # Voids 2 # Bowel Movements 2 1 - Labs CBC & Chem 7: 05/31/19 19:00 06/02/19 10:18 Labs: Abnormal Lab Results - Last 24 Hours (Table) 06/02/19 06/02/19 06/02/19 Range/Units 10:18 11:29 16:35 Sodium 133 L (137-145) mmol/L Potassium 2.9 L (3.5-5.1) mmol/L BUN 4 L (7-17) mg/dL Creatinine 0.51 L (0.52-1.04) mg/dL Glucose 252 H (74-99) mg/dL POC Glucose (mg/dL) 190 H 256 H (75-99) mg/dL Calcium 8.1 L (8.4-10.2) mg/dL 06/02/19 06/03/19 Range/Units 20:58 07:20 Sodium (137-145) mmol/L Potassium (3.5-5.1) mmol/L BUN (7-17) mg/dL Creatinine (0.52-1.04) mg/dL Glucose (74-99) mg/dL POC Glucose (mg/dL) 196 H 180 H (75-99) mg/dL Calcium (8.4-10.2) mg/dL Microbiology - Last 24 Hours (Table) 05/31/19 19:00 Blood Culture - Preliminary Blood No Growth after 48 hours
[2019-06-03] MEDS ORDERED: ONDANSETRON 4 MG/2 ML VIAL IVP PRN (10:17)
--- NOTE | 2019-06-03 10:53 | PN ---
PROGRESS NOTE DATE OF SERVICE: 06/02/2019 REASON FOR FOLLOWUP: Acute sigmoid diverticulitis. INTERVAL HISTORY: The patient is currently afebrile. The patient is breathing comfortably. No further vomiting has been reported. No chest pain, shortness of breath, or cough. No diarrhea. PHYSICAL EXAMINATION: Blood pressure is 136/87 with a pulse of 82, temperature of 98.5, she is 98% on room air. General description is an elderly female lying in bed in no distress. RESPIRATORY SYSTEM: Unlabored breathing. Clear to auscultation anteriorly. HEART: S1, S2. Regular rate and rhythm. ABDOMEN: Soft. No tenderness. EXTREMITIES: No edema of feet. LABS: No new labs have been obtained today. Blood culture has been negative so far. DIAGNOSTIC IMPRESSION AND PLAN: Patient admitted to the hospital with fever and leukocytosis, source likely includes sigmoid diverticulitis. The patient is covered with Rocephin and Flagyl to continue. Repeat CBC tomorrow. Wound will be examined tomorrow at the time of wound VAC change. Continue supportive care. MMODL / IJN: [id number] /
[2019-06-03 11:32] LABS: Anisocytosis Slight; Basophils # (A) 0.1 k/uL (0-0.2); Basophils % (A) 1 %; Eosinophils # (A) 0.4 k/uL (0-0.7); Eosinophils % (A) 3 %; HCT 34.5 % (34.0-46.0); HGB 10.4 gm/dL (11.4-16.0); Hypochromasia Moderate; Lymphocytes # (A) 0.7 k/uL (1.0-4.8); Lymphocytes % (A) 6 %; MCH 24.2 pg (25.0-35.0); MCHC 30.2 g/dL (31.0-37.0); MCV 80.3 fL (80.0-100.0); Mean Platelet Volume 7.5; Microcytosis Slight; Monocytes # (A) 0.4 k/uL (0-1.0); Monocytes % (A) 3 %; Neutrophils # (A) 11.2 k/uL (1.3-7.7); Neutrophils % (A) 87 %; Platelet Count 563 k/uL (150-450); RDW 18.3 % (11.5-15.5); WBC 12.9 k/uL (3.8-10.6)
[2019-06-03 11:51] LABS: Glucose,Whole Blood 306 mg/dL (75-99)
[2019-06-03 13:35] LABS: African American GFR (CKD) >90 (>60 ml/min/1.73 sqM); Anion Gap 11 mmol/L; Blood Urea Nitrogen 5 mg/dL (7-17); C Reactive Protein 48.7 mg/L (<10.0); Calcium 8.9 mg/dL (8.4-10.2); Carbon Dioxide 24 mmol/L (22-30); Chloride 102 mmol/L (98-107); Glucose 247 mg/dL (74-99); Non-African American GFR(CKD) >90 (>60 ml/min/1.73 sqM); Potassium 3.4 mmol/L (3.5-5.1); Sodium 137 mmol/L (137-145)
[2019-06-03 16:55] LABS: Glucose,Whole Blood 213 mg/dL (75-99)
[2019-06-03] MEDS: FERROUS SULFATE 325 MG TAB PO SCH (17:26)
[2019-06-03] MEDS: POTASSIUM CHLORIDE ER 20 MEQ TAB.ER PO SCH (17:26)
--- NOTE | 2019-06-03 20:07 | P.PN ---
Progress Note - Text Progress Note Date: 06/03/19 Chief Complaint: Abdominal discomfort History of presenting complaint: This is a pleasant 74-year-old patient of Dr. Alcala. Chronic stable medical conditions include atrial fibrillation, coronary artery disease, diabetes, hyperlipidemia, hypertension, osteoarthritis, hypothyroid, peripheral arterial disease. December 2017 had a "coronary bypass, complicated by ischemic bowel resulting in the ostomy and a wound VAC. Patient subsequently had intra- abdominal abscess and required protracted course of antibiotics. March 2018 had an abscess and patient did have a MASTER drain in place for the same. December 2018 patient had the incisional hernia with mesh placed. By Dr. Montoya. Patient did undergo admission for significant drainage from MASTER drain. admitted on March 03 and discharged on March 13 and during that admission infected mesh was removed. Patient had a wound VAC placed. Patient was discharged on March 13 with 2 week course of IV daptomycin, IV Invanz, and Bactrim. Wound cultures had grown S maltophilia, VRE, staph epidermidis. Patient April 01 admitted with delirium. Dose of OxyContin was cut back. Since then patient was in [place] visiting her son in law and was admitted to the hospital after she became sick. Received antibiotics. Patient now presents with elevated white count some abdominal discomfort and feeling out of sorts. Appetite has been waxing and waning. Patient's wound VAC is changed every 3 days. No obvious fever or chills. Normally has 1-2 bowel movements a day. Hospital course: Admitted with leukocytosis and some abdominal pain. Computed tomography scan abdomen did not show any abscess. Started on liquid diet. Computed tomography scan negative for PE for right-sided chest pain. Today-feels really tired and rundown. Sitting upon a chair. Appetite not very good. No vomiting. No fever. Review of systems: Was done for constitutional, cardiovascular, GI, pulmonary. relevant finding as above Active Medications Acetaminophen (Tylenol Tab) 650 mg PO Q6HR PRN PRN Reason: Mild Pain or Fever > 100.5 Amiodarone HCl (Cordarone) 100 mg PO DAILY [facility] Last Admin: 06/03/19 07:52 Dose: 100 mg Documented by: Atorvastatin Calcium (Lipitor) 40 mg PO HS [facility] Last Admin: 06/02/19 20:53 Dose: 40 mg Documented by: Cilostazol (Pletal) 100 mg PO DAILY [facility] Last Admin: 06/03/19 07:47 Dose: 100 mg Documented by: Duloxetine HCl (Cymbalta) 60 mg PO HS [facility] Last Admin: 06/02/19 20:53 Dose: 60 mg Documented by: Enoxaparin Sodium (Lovenox) 80 mg SQ Q12HR [facility] Last Admin: 06/03/19 07:46 Dose: 80 mg Documented by: Ergocalciferol (Vitamin D2) 50,000 unit PO COHEN [facility] Last Admin: 06/02/19 13:57 Dose: 50,000 unit Documented by: Ferrous Sulfate (Feosol) 325 mg PO AC-SUPPER [facility] Last Admin: 06/03/19 17:26 Dose: 325 mg Documented by: Furosemide (Lasix) 40 mg PO DAILY [facility] Last Admin: 06/03/19 07:47 Dose: 40 mg Documented by: Hydromorphone HCl (Dilaudid) 1 mg IVP Q4HR PRN PRN Reason: Pain Last Admin: 06/03/19 03:01 Dose: 1 mg Documented by: Sodium Chloride (Saline 0.9%) 1,000 mls @ 130 mls/hr IV .Q7H42M [facility] Last Admin: 06/03/19 01:27 Dose: 130 mls/hr Documented by: Ceftriaxone Sodium 2 gm/ (Sodium Chloride) 50 mls @ 100 mls/hr IVPB Q24HR [facility] Last Admin: 06/03/19 07:47 Dose: 100 mls/hr Documented by: Insulin Aspart (Novolog) 0 unit SQ ACHS [facility]; Protocol Last Admin: 06/03/19 17:26 Dose: 4 unit Documented by: Lactobacillus Acidoph/Bulgaricus (Lactinex) 1 each PO AC-BID@0800,1700 [facility] Last Admin: 06/03/19 17:26 Dose: 1 each Documented by: Latanoprost (Xalatan 0.005%) 1 drops BOTH EYES HS [facility] Last Admin: 06/02/19 20:55 Dose: 1 drops Documented by: Levothyroxine Sodium (Synthroid) 88 mcg PO DAILY@0600 [facility] Last Admin: 06/03/19 05:19 Dose: Not Given Documented by: Losartan Potassium (Cozaar) 50 mg PO DAILY [facility] Last Admin: 06/03/19 07:47 Dose: 50 mg Documented by: Metoprolol Tartrate (Lopressor) 50 mg PO AC-BID@0800,1700 [facility] Last Admin: 06/03/19 17:25 Dose: 50 mg Documented by: Metronidazole (Flagyl) 500 mg PO TID [facility] Last Admin: 06/03/19 17:25 Dose: 500 mg Documented by: Miscellaneous Information (Potassium Per Protocol) 1 each MISCELLANE DAILY PRN; Protocol PRN Reason: Per Protocol Ondansetron HCl (Zofran) 4 mg IVP Q6HR PRN PRN Reason: Nausea And Vomiting Last Admin: 06/03/19 10:40 Dose: 4 mg Documented by: Oxycodone HCl (Oxycontin 15mg E.R.) 15 mg PO Q8HR [facility] Pantoprazole Sodium (Protonix) 40 mg IV DAILY [facility] Last Admin: 06/03/19 07:48 Dose: 40 mg Documented by: Potassium Chloride (K-Dur 20) 20 meq PO AC-SUPPER [facility] Last Admin: 06/03/19 17:26 Dose: 20 meq Documented by: Prednisone () 10 mg PO DAILY [facility] Last Admin: 06/03/19 07:47 Dose: 10 mg Documented by: Spironolactone (Aldactone) 50 mg PO DAILY [facility] Last Admin: 06/03/19 07:46 Dose: 50 mg Documented by: Physical examination: VITAL SIGNS: 98.5-79-12-161/87-97% on room air GENERAL: Sitting up in a chair, tired EYES: Pupils equal. Conjunctiva pale HEENT: External appearance of nose and ears normal, oral cavity dry NECK: JVD unable to assess; masses not palpable. HEART: First and second heart sounds are normal; some edema. LUNGS: Respiratory rate normal; decreased breath sounds. ABDOMEN: Soft, wound VAC in place. Minimal tenderness, no guarding or rigidity, liver spleen not palpable,bowel sounds present PSYCH: AAO 3, motor affect normal NEUROLOGICAL: Cranial nerves grossly intact, SENSATION grossly intact INVESTIGATIONS, reviewed in the clinical context: White count 12.9 hemoglobin 10.4 platelets 563 potassium 3.4 creatinine 0.52, CRP 40.7 Previous testing White count 8.8 hemoglobin 10.2 platelets 576 potassium 3 creatinine 0.65 lactic acid 3.2 albumin 3.8 EKG tracing personally reviewed by me-normal sinus rhythm nonspecific changes Abdominal x-ray-will acute reported computed tomography scan abdomen-no new significant findings CT chest-negative for PE Assessment: -Patient does feel weak and tired. Given that patient is on chronic dose of prednisone, will add stress dose hydrocortisone. That might explain some of her symptoms. -Patient rather extensive medical history regarding intra-abdominal abscess from ischemic bowel with multiple episodes of the same, the wound VAC in place. Now presents with episodes of vomiting 3 times in one day. Abdominal discomfort. Elevated white count. Abdominal examination is relatively benign. computed tomography scan of the abdomen-unremarkable -Acute right chest pain. 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 Continue with antibiotics. Continue ceftriaxone. Discussed with the patient and at the bedside.
[2019-06-03] MEDS: DULoxetine HCL 60 MG CAPSULE.DR PO SCH (20:15)
[2019-06-03] MEDS: ATORVASTATIN 40 MG TAB PO SCH (20:15)
[2019-06-03] MEDS: LATANOPROST 0.005% OPHTH DROPS 2.5 ML BTL BOTH EYES SCH (20:15)
--- NOTE | 2019-06-03 21:02 | PN ---
PROGRESS NOTE DATE OF SERVICE: 06/03/2019. REASON FOR FOLLOWUP: Sigmoid diverticulitis. INTERVAL HISTORY: The patient is currently afebrile. The patient has been breathing comfortably. The patient denies having any chest pain. She has been complaining of nausea but no vomiting. No diarrhea. PHYSICAL EXAMINATION: Blood pressure 129/81 with a pulse of 78, temperature 98.3. She is 98% on room air. General description is an elderly female lying in bed in no distress. RESPIRATORY SYSTEM: Unlabored breathing. Clear to auscultation anteriorly. HEART: S1, S2. Regular rate and rhythm. ABDOMEN: Soft. No tenderness. LABS: Hemoglobin is 10.4, white count 12.9, BUN of 5, creatinine 0.52. Blood culture has been negative. DIAGNOSTIC IMPRESSION AND PLAN: 1. Patient admitted to hospital with leukocytosis, fever, possible sigmoid diverticulitis. The patient is covered with Rocephin and Flagyl; to continue. White count has shown a downward trend. Continue with supportive care. 2. Patient with abdominal wound. Local wound care to continue with a wound V.A.C. to change q.48 hours. Continue with supportive care. MMODL / IJN: [id number] /
[2019-06-03 21:13] LABS: Glucose,Whole Blood 188 mg/dL (75-99)
[2019-06-03] MEDS: HYDROCORTISONE SUCCINATE 100 MG/2 ML VIAL IV SCH (21:27)
[2019-06-04] MEDS: HYDROmorphone 1 MG/ML 1 ML SYRINGE IVP PRN (03:18)
[2019-06-04] MEDS: HYDROCORTISONE SUCCINATE 100 MG/2 ML VIAL IV SCH ×3 (04:38→20:31)
[2019-06-04] MEDS: LEVOTHYROXINE 88 MCG TAB PO SCH (06:00)
[2019-06-04] MEDS: SODIUM CHLORIDE 0.9% 1,000 ML IV SCH ×3 (06:04→11:54)
[2019-06-04 06:53] LABS: Glucose,Whole Blood 176 mg/dL (75-99)
[2019-06-04] MEDS: INSULIN ASPART (NovoLOG) 100 UNIT/ML VIAL SQ SCH ×4 (08:34→21:21)
[2019-06-04] MEDS: oxyCODONE ER 15 MG TAB.ER.12H PO SCH ×2 (08:35→17:21)
[2019-06-04] MEDS: LACTOBACILLUS ACIDOPH & BULGAR 1 EACH PACKET PO SCH ×2 (08:35→17:22)
[2019-06-04] MEDS: METOPROLOL TARTRATE 50 MG TAB PO SCH ×2 (08:35→17:22)
[2019-06-04] MEDS: AMIODARONE 100 MG TAB PO SCH (08:36)
[2019-06-04] MEDS: FUROSEMIDE 40 MG TAB PO SCH (08:37)
[2019-06-04] MEDS: ENOXAPARIN 80 MG/0.8 ML SYRINGE SQ SCH ×2 (08:37→20:31)
[2019-06-04] MEDS: CILOSTAZOL 100 MG TAB PO SCH (08:37)
[2019-06-04] MEDS: LOSARTAN 50 MG TAB PO SCH (08:38)
[2019-06-04] MEDS: SPIRONOLACTONE 25 MG TAB PO SCH (08:38)
[2019-06-04] MEDS: PANTOPRAZOLE 40 MG/10 ML VIAL IV SCH (08:38)
[2019-06-04] MEDS: metroNIDAZOLE 500 MG TAB PO SCH ×3 (08:38→20:30)
--- NOTE | 2019-06-04 10:36 | P.PN ---
Subjective Progress Note Date: 06/04/19 CHIEF COMPLAINT: Vomiting HISTORY OF PRESENT ILLNESS: Patient seen and examined this morning at the bedside. Denies abdominal pain. Tolerating diet. Denies nausea or vomiting. Wound VAC remains intact. Labs from this morning are pending. Vital signs stable. She is afebrile. PHYSICAL EXAM: VITAL SIGNS: Reviewed. GENERAL: Well-developed in no acute distress. HEENT: No sclera icterus. Extraocular movements grossly intact. Moist buccal mucosa. Head is atraumatic, normocephalic. ABDOMEN: Soft. Nondistended. Nontender. Wound VAC intact. NEUROLOGIC: Alert and oriented. Cranial nerves II through XII grossly intact. ASSESSMENT: 1. Leukocytosis 2. Nausea and vomiting, resolved 3. History of incisional hernia repair, complicated by rectus sheath hemorrhage, December 2018 4. History of postoperative intra-abdominal abscess with removal of infected mesh, March 2019 PLAN: Continue diet as tolerated Continue wound vac No surgical intervention recommended Discharge per medicine Nurse practitioner note has been reviewed by physician. Signing provider agrees with the documented findings, assessment, and plan of care. Objective - Vital Signs Vital signs: Vital Signs Temp 98 F 06/04/19 07:00 Pulse 63 06/04/19 08:30 Resp 15 06/04/19 08:30 BP 158/82 06/04/19 07:00 Pulse Ox 94 L 06/04/19 08:01 Intake & Output 06/03/19 06/04/19 06/04/19 18:59 06:59 18:59 Output Total 700 Balance -700 Output: Urine 700 Other: Voiding Method Toilet Toilet Toilet Bedpan Bedpan Bedpan # Voids 4 2 2 - Labs CBC & Chem 7: 06/03/19 10:54 06/03/19 10:54 Labs: Abnormal Lab Results - Last 24 Hours (Table) 06/03/19 06/03/19 06/03/19 Range/Units 10:54 10:54 11:47 WBC 12.9 H (3.8-10.6) k/uL Hgb 10.4 L (11.4-16.0) gm/dL MCH 24.2 L (25.0-35.0) pg MCHC 30.2 L (31.0-37.0) g/dL RDW 18.3 H (11.5-15.5) % Plt Count 563 H (150-450) k/uL Neutrophils # 11.2 H (1.3-7.7) k/uL Lymphocytes # 0.7 L (1.0-4.8) k/uL Potassium 3.4 L (3.5-5.1) mmol/L BUN 5 L (7-17) mg/dL Glucose 247 H (74-99) mg/dL POC Glucose (mg/dL) 306 H (75-99) mg/dL C-Reactive Protein 48.7 H (<10.0) mg/L 06/03/19 06/03/19 06/04/19 Range/Units 16:49 21:06 06:51 WBC (3.8-10.6) k/uL Hgb (11.4-16.0) gm/dL MCH (25.0-35.0) pg MCHC (31.0-37.0) g/dL RDW (11.5-15.5) % Plt Count (150-450) k/uL Neutrophils # (1.3-7.7) k/uL Lymphocytes # (1.0-4.8) k/uL Potassium (3.5-5.1) mmol/L BUN (7-17) mg/dL Glucose (74-99) mg/dL POC Glucose (mg/dL) 213 H 188 H 176 H (75-99) mg/dL C-Reactive Protein (<10.0) mg/L Microbiology - Last 24 Hours (Table) 05/31/19 19:00 Blood Culture - Preliminary Blood No Growth after 72 hours
[2019-06-04 11:41] LABS: Glucose,Whole Blood 209 mg/dL (75-99)
--- NOTE | 2019-06-04 12:08 | CDI ---
Documentation Clarification Form Date: 06/04/2019 CDS: Maru Thrasher, CCS, CCDS Admit Date: 05/31/2019 Patient Name: Carolyn Sellers ATTENTION: The Clinical Documentation Specialists (CDI) and [facility] Coding Staff appreciate your assistance in clarifying documentation. Please respond to the clarification below the line at the bottom and electronically sign. The CDI & [facility] Coding staff will review the response and follow-up if needed. Please note: Queries are made part of the Legal Health Record. If you have any questions, please contact the author of this message via ITS. Dear Dr. Dietz: The patients principal diagnosis has not been clearly identified and requires clarification. Patient presented with elevated WBC, nausea & vomiting, some abdominal discomfort, weakness & tired. History of incisional hernia repair, complicated by rectus sheath hemorrhage, December 2018, history of postoperative intra- abdominal abscess with removal of infected mesh, March 2019. Still has wound VAC. History/Risk factors: CAD status post bypass, acute ischemic bowel with perforation, paroxysmal atrial fibrillation, peripheral artery disease, hypothyroid, diabetes mellitus type 2, chronic low back pain from arthritis, depression, hyperlipidemia, hypertension, former smoker. Clinical Indicators on admission: VS: T (98.2), P 102^, R 18, BP 144/98^, PO 98 RA. LAB: WBC 18.8^, Hgb 10.2*, Pl Ct 576^, Neut 15.0^, Na 133*, K 3.0*, Lactic Acid 3.2^^, Mag 1.5* UA: clear, neg nitrite, large esterase. No culture. Blood culture negative. Influenza negative. RAD: Acute Abdomen series: Nonacute abdomen. 06/01 CT Abdomen/Pelvis: Large ventral abdominal wound, status post hemicolectomy w/ileocolonic anastomosis of the transverse colon. There is sigmoid diverticulosis with either prominent pericolonic vessels along proximal sigmoid vs mild inflammation, correlate for symptoms of mild acute diverticulitis. Other Clinical Indicators: Per the Infectious Disease consult: likely sigmoid diverticulitis & UTI not excluded. Treatment: IV Zofran, IV fl 100, IV fl bolus x4, IV PPI, IV Rocephin, IV Flagyl, IV Dilaudid, IV SoluCortef given 06/04. In your professional opinion, can you please clarify which diagnosis, after study, accounted for the patients presenting symptoms and was the reason chiefly responsible for the admission? Sigmoid Diverticulitis o With or Without Sepsis Sigmoid Diverticulitis ruled out Weakness due to chronic steroid use (on Prednisone chronically, held as of 06/04) Nausea & vomiting due to: Other signs & symptoms (please explain) due to other condition, please specify: (Last Revision: July 2017) Possible sigmoid diverticulitis, causing possible sepsis, POA MTDD
[2019-06-04 17:13] LABS: Glucose,Whole Blood 285 mg/dL (75-99)
[2019-06-04] MEDS: FERROUS SULFATE 325 MG TAB PO SCH (17:23)
[2019-06-04] MEDS: POTASSIUM CHLORIDE ER 20 MEQ TAB.ER PO SCH (17:23)
[2019-06-04] MEDS: ATORVASTATIN 40 MG TAB PO SCH (20:30)
[2019-06-04] MEDS: DULoxetine HCL 60 MG CAPSULE.DR PO SCH (20:31)
[2019-06-04] MEDS: LATANOPROST 0.005% OPHTH DROPS 2.5 ML BTL BOTH EYES SCH (20:36)
[2019-06-04 21:12] LABS: Glucose,Whole Blood 237 mg/dL (75-99)
--- NOTE | 2019-06-04 22:26 | P.PN ---
Progress Note - Text Progress Note Date: 06/04/19 Chief Complaint: Abdominal discomfort History of presenting complaint: This is a pleasant 74-year-old patient of Dr. Alcala. Chronic stable medical conditions include atrial fibrillation, coronary artery disease, diabetes, hyperlipidemia, hypertension, osteoarthritis, hypothyroid, peripheral arterial disease. December 2017 had a "coronary bypass, complicated by ischemic bowel resulting in the ostomy and a wound VAC. Patient subsequently had intra- abdominal abscess and required protracted course of antibiotics. March 2018 had an abscess and patient did have a MASTER drain in place for the same. December 2018 patient had the incisional hernia with mesh placed. By Dr. Montoya. Patient did undergo admission for significant drainage from MASTER drain. admitted on March 03 and discharged on March 13 and during that admission infected mesh was removed. Patient had a wound VAC placed. Patient was discharged on March 13 with 2 week course of IV daptomycin, IV Invanz, and Bactrim. Wound cultures had grown S maltophilia, VRE, staph epidermidis. Patient April 01 admitted with delirium. Dose of OxyContin was cut back. Since then patient was in [place] visiting her son in law and was admitted to the hospital after she became sick. Received antibiotics. Patient now presents with elevated white count some abdominal discomfort and feeling out of sorts. Appetite has been waxing and waning. Patient's wound VAC is changed every 3 days. No obvious fever or chills. Normally has 1-2 bowel movements a day. Hospital course: Admitted with leukocytosis and some abdominal pain. Computed tomography scan abdomen did not show any abscess. Started on liquid diet. Computed tomography scan negative for PE for right-sided chest pain. Started on stress dose of hydrocortisone. Today-feels much better today. Started to eat better. Had a bowel movement. No fever no chills. Active Medications Acetaminophen (Tylenol Tab) 650 mg PO Q6HR PRN PRN Reason: Mild Pain or Fever > 100.5 Amiodarone HCl (Cordarone) 100 mg PO DAILY [facility] Last Admin: 06/04/19 08:36 Dose: 100 mg Documented by: Atorvastatin Calcium (Lipitor) 40 mg PO HS [facility] Last Admin: 06/04/19 20:30 Dose: 40 mg Documented by: Cilostazol (Pletal) 100 mg PO DAILY [facility] Last Admin: 06/04/19 08:37 Dose: 100 mg Documented by: Duloxetine HCl (Cymbalta) 60 mg PO HS [facility] Last Admin: 06/04/19 20:31 Dose: 60 mg Documented by: Enoxaparin Sodium (Lovenox) 80 mg SQ Q12HR [facility] Last Admin: 06/04/19 20:31 Dose: 80 mg Documented by: Ergocalciferol (Vitamin D2) 50,000 unit PO COHEN [facility] Last Admin: 06/02/19 13:57 Dose: 50,000 unit Documented by: Ferrous Sulfate (Feosol) 325 mg PO AC-SUPPER [facility] Last Admin: 06/04/19 17:23 Dose: 325 mg Documented by: Furosemide (Lasix) 40 mg PO DAILY [facility] Last Admin: 06/04/19 08:37 Dose: 40 mg Documented by: Hydrocortisone Sodium Succinate (Solu-Cortef) 25 mg IV Q8HR [facility] Hydromorphone HCl (Dilaudid) 1 mg IVP Q4HR PRN PRN Reason: Pain Last Admin: 06/04/19 03:18 Dose: 1 mg Documented by: Sodium Chloride (Saline 0.9%) 1,000 mls @ 130 mls/hr IV .Q7H42M [facility] Last Admin: 06/04/19 11:54 Dose: 130 mls/hr Documented by: Ceftriaxone Sodium 2 gm/ (Sodium Chloride) 50 mls @ 100 mls/hr IVPB Q24HR [facility] Last Admin: 06/04/19 08:36 Dose: 100 mls/hr Documented by: Insulin Aspart (Novolog) 0 unit SQ [facility]; Protocol Last Admin: 06/04/19 21:21 Dose: 5 unit Documented by: Lactobacillus Acidoph/Bulgaricus (Lactinex) 1 each PO AC-BID@0800,1700 [facility] Last Admin: 06/04/19 17:22 Dose: 1 each Documented by: Latanoprost (Xalatan 0.005%) 1 drops BOTH EYES [facility] Last Admin: 06/04/19 20:36 Dose: 1 drops Documented by: Levothyroxine Sodium (Synthroid) 88 mcg PO DAILY@0600 [facility] Last Admin: 06/04/19 06:00 Dose: 88 mcg Documented by: Losartan Potassium (Cozaar) 50 mg PO DAILY [facility] Last Admin: 06/04/19 08:38 Dose: 50 mg Documented by: Metoprolol Tartrate (Lopressor) 50 mg PO AC-BID@0800,1700 [facility] Last Admin: 06/04/19 17:22 Dose: 50 mg Documented by: Metronidazole (Flagyl) 500 mg PO TID [facility] Last Admin: 06/04/19 20:30 Dose: 500 mg Documented by: Miscellaneous Information (Potassium Per Protocol) 1 each MISCELLANE DAILY PRN; Protocol PRN Reason: Per Protocol Ondansetron HCl (Zofran) 4 mg IVP Q6HR PRN PRN Reason: Nausea And Vomiting Last Admin: 06/03/19 10:40 Dose: 4 mg Documented by: Oxycodone HCl (Oxycontin 15mg E.R.) 15 mg PO Q8HR [facility] Last Admin: 06/04/19 17:21 Dose: 15 mg Documented by: Pantoprazole Sodium (Protonix) 40 mg PO AC-BRKFST [facility] Potassium Chloride (K-Dur 20) 20 meq PO AC-SUPPER [facility] Last Admin: 06/04/19 17:23 Dose: 20 meq Documented by: Spironolactone (Aldactone) 50 mg PO DAILY [facility] Last Admin: 06/04/19 08:38 Dose: 50 mg Documented by: Physical examination: VITAL SIGNS: 64-42-77-133/82-99% on room air GENERAL: Sitting up in a chair, looking better EYES: Pupils equal. Conjunctiva pale HEENT: External appearance of nose and ears normal, oral cavity dry NECK: JVD unable to assess; masses not palpable. HEART: First and second heart sounds are normal; some edema. LUNGS: Respiratory rate normal; decreased breath sounds. ABDOMEN: Soft, wound VAC in place. Minimal tenderness, no guarding or rigidity, liver spleen not palpable,bowel sounds present PSYCH: AAO 3, motor affect normal NEUROLOGICAL: Cranial nerves grossly intact, SENSATION grossly intact INVESTIGATIONS, reviewed in the clinical context: White count 12.9 hemoglobin 10.4 platelets 563 potassium 3.4 creatinine 0.52, CRP 40.7 Previous testing White count 8.8 hemoglobin 10.2 platelets 576 potassium 3 creatinine 0.65 lactic acid 3.2 albumin 3.8 EKG tracing personally reviewed by me-normal sinus rhythm nonspecific changes Abdominal x-ray-will acute reported computed tomography scan abdomen-no new significant findings CT chest-negative for PE Assessment: -Adrenal insufficiency, patient responding to stress dose steroids. Feeling better. -Patient rather extensive medical history regarding intra-abdominal abscess from ischemic bowel with multiple episodes of the same, the wound VAC in place. Now presents with episodes of vomiting 3 times in one day. Abdominal discomfort. Elevated white count. Abdominal examination is relatively benign. computed tomography scan of the abdomen-unremarkable -Acute right chest pain. 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 Clinically looking better. Cut back the dose of IV hydrocortisone to 25 mg every 8. Discussed with the patient. Watch for another 24 hours. Discussed with ID.
--- NOTE | 2019-06-04 22:27 | PN ---
PROGRESS NOTE DATE OF SERVICE: 06/04/2019 REASON FOR FOLLOWUP: likely sigmoid diverticulitis. INTERVAL HISTORY: The patient is afebrile. She has been breathing comfortably. The patient denies any further nausea or vomiting. No chest pain, shortness of breath or cough. No diarrhea. PHYSICAL EXAMINATION: Blood pressure 133/82 with a pulse of 68, temperature 98. She is 99% on room air. General description is an elderly female up in the chair in no distress. RESPIRATORY SYSTEM: Unlabored breathing with decreased breath sounds at the base. No wheeze. HEART: S1, S2. Regular rate and rhythm. ABDOMEN: Soft. No tenderness. LABS: No new labs have been obtained today. DIAGNOSTIC IMPRESSION AND PLAN: 1. Patient admitted to hospital with vomiting. Did have elevated white count. She did have a CT of abdomen and pelvis suspicious for sigmoid diverticulitis. The patient is currently covered with Rocephin and Flagyl. CT was suspicious for a possible pneumonia. However, the patient does not have significant respiratory symptoms. To continue Rocephin and Flagyl while monitoring clinical course closely. 2. Abdominal wound will be examined tomorrow at the time of wound V.A.C. changes. Continue with supportive care. MMODL / IJN: [id number] /
[2019-06-05] MEDS: HYDROCORTISONE SUCCINATE 100 MG/2 ML VIAL IV SCH ×2 (00:21→07:46)
[2019-06-05] MEDS: oxyCODONE ER 15 MG TAB.ER.12H PO SCH ×2 (00:22→07:49)
[2019-06-05 03:54] VITALS: PULSE 68
[2019-06-05] MEDS: LEVOTHYROXINE 88 MCG TAB PO SCH (06:20)
[2019-06-05] MEDS: SODIUM CHLORIDE 0.9% 1,000 ML IV SCH ×3 (06:24→15:53)
[2019-06-05 06:50] LABS: Glucose,Whole Blood 231 mg/dL (75-99)
[2019-06-05] MEDS ORDERED: PANTOPRAZOLE 40 MG TABLET PO SCH (07:30)
[2019-06-05 07:44] VITALS: BP 133/71; RESP 18; TEMP 98.1
[2019-06-05] MEDS: INSULIN ASPART (NovoLOG) 100 UNIT/ML VIAL SQ SCH ×2 (07:45→12:02)
[2019-06-05] MEDS: METOPROLOL TARTRATE 50 MG TAB PO SCH (07:47)
[2019-06-05] MEDS: LACTOBACILLUS ACIDOPH & BULGAR 1 EACH PACKET PO SCH (07:47)
[2019-06-05] MEDS: AMIODARONE 100 MG TAB PO SCH (07:47)
[2019-06-05] MEDS: LOSARTAN 50 MG TAB PO SCH (07:48)
[2019-06-05] MEDS: FUROSEMIDE 40 MG TAB PO SCH (07:48)
[2019-06-05] MEDS: SPIRONOLACTONE 25 MG TAB PO SCH (07:48)
[2019-06-05] MEDS: CILOSTAZOL 100 MG TAB PO SCH (07:48)
[2019-06-05] MEDS: ENOXAPARIN 80 MG/0.8 ML SYRINGE SQ SCH (07:48)
[2019-06-05] MEDS: metroNIDAZOLE 500 MG TAB PO SCH (07:48)
[2019-06-05 11:25] LABS: Glucose,Whole Blood 369 mg/dL (75-99)
[2019-06-05] MEDS: HYDROmorphone 1 MG/ML 1 ML SYRINGE IVP PRN (12:26)
--- NOTE | 2019-06-05 16:29 | PN ---
PROGRESS NOTE DATE OF SERVICE: 06/05/2019 REASON FOR FOLLOWUP: 1. Acute diverticulitis. 2. Abdominal wound. INTERVAL HISTORY: The patient is currently afebrile. The patient is breathing comfortably. The patient's abdominal pain is currently controlled. No further nausea. No vomiting, diarrhea, or pain to the abdominal wound. PHYSICAL EXAMINATION: Blood pressure 133/71 with a pulse of 68, temperature 98.1, she is 95% on room air. General description is an elderly female lying in bed in no distress. RESPIRATORY SYSTEM: Unlabored breathing. Clear to auscultation anteriorly. HEART: S1, S2. Regular rate and rhythm. ABDOMEN: Soft. The midline abdominal wound was clean with no slough tissue or surrounding redness or foul-smelling drainage. LABS: No new labs have been obtained today. Blood culture has been negative. DIAGNOSTIC IMPRESSION AND PLAN: 1. Patient admitted to the hospital with nausea, vomiting, and abdominal pain. Has been diagnosed with acute diverticulitis. The patient clinically responded to the Rocephin and Flagyl. We will switch oral therapy to Ceftin and Flagyl for 10 days. Prescription was sent to the pharmacy. 2. Patient with abdominal wound, postsurgical. Local care to continue with wound VAC changed Monday, Monday, and Monday. [facility]. MMODL / IJN: [id number] /
== END 2019-06-05 15:52 | disposition home health service (06) | DRG 872 ==
LOC: EC 17:35 → 4SSUR 21:35
PROVIDERS: ADMIT Hospitalist; ATTEND Hospitalist
DX: A41.9 Sepsis, unspecified organism (principal); Z16.24 Resistance to multiple antibiotics; K57.32 Diverticulitis of large intestine without perforation or abscess without bleeding; N39.0 Urinary tract infection, site not specified; E27.40 Unspecified adrenocortical insufficiency; R11.10 Vomiting, unspecified; R07.89 Other chest pain; I48.0 Paroxysmal atrial fibrillation; E87.6 Hypokalemia; I25.10 Atherosclerotic heart disease of native coronary artery without angina pectoris; E11.51 Type 2 diabetes mellitus with diabetic peripheral angiopathy without gangrene; I10 Essential (primary) hypertension; E78.5 Hyperlipidemia, unspecified; E03.9 Hypothyroidism, unspecified; E66.9 Obesity, unspecified; R26.9 Unspecified abnormalities of gait and mobility; M47.816 Spondylosis without myelopathy or radiculopathy, lumbar region; G89.29 Other chronic pain; M54.5 Low back pain; M19.90 Unspecified osteoarthritis, unspecified site; F32.9 Major depressive disorder, single episode, unspecified; F41.9 Anxiety disorder, unspecified; Z68.31 Body mass index [BMI] 31.0-31.9, adult; Z95.1 Presence of aortocoronary bypass graft; Z96.653 Presence of artificial knee joint, bilateral; Z79.899 Other long term (current) drug therapy; Z79.02 Long term (current) use of antithrombotics/antiplatelets; Z79.52 Long term (current) use of systemic steroids; Z79.84 Long term (current) use of oral hypoglycemic drugs; Z79.890 Hormone replacement therapy; Z87.19 Personal history of other diseases of the digestive system; Z87.891 Personal history of nicotine dependence; Z80.49 Family history of malignant neoplasm of other genital organs; Z82.49 Family history of ischemic heart disease and other diseases of the circulatory system
CPT/HCPCS: 36415; 71275; 74022; 74177; 80048; 80053; 81001; 82550; 83605; 83735; 83880; 84100; 84484; 85025; 85610; 85730; 86140; 87040; 87502; 93005; 93970; 94760; 96361; 96365; 96375; 99285

== ENCOUNTER 2019-06-11 16:03 | Inpatient (IN) | payer MEDICARE ==
[2019-06-11] MEDS ORDERED: ONDANSETRON 4 MG/2 ML VIAL IVP STA (17:59)
--- NOTE | 2019-06-11 18:22 | ED ---
General Adult HPI - General Chief complaint: Weakness Stated complaint: Weakness/vomiting Time Seen by Provider: 06/11/19 17:58 Source: patient Mode of arrival: ambulatory Limitations: no limitations - History of Present Illness Initial comments: Dictation was produced using [employer] dictation software. please excuse any grammatical, word or spelling errors. Chief Complaint: 74-year-old female with chief complaint of generalized weakness and nausea. History of Present Illness: Patient is 74-year-old female with past medical history of a chief fibrillation, diabetes, dyslipidemia, abdominal hernia complicated by infection of mesh. She presents today with nausea vomiting and generalized weakness. Patient was just discharged from the hospital for the same complaint. Chart review shows that patient was discharged on the fifth. Since being discharged patient states that she's been having persistent symptoms. She presents today with reports that he is unable to care for her at home. Patient has been generally weak and has been sleeping excessively. She is unable to tolerate anything orally. Patient takes multiple medications. Most recently she has been on antibiotics for concern of abdominal wall infection. She has no specific pain complaints. She denies any shortness of breath. She was seen by Dr. Alcala mid-level at the clinic office today and was told to come to the emergency The ROS documented in this emergency department record has been reviewed and confirmed by me. Those systems with pertinent positive or negative responses have been documented in the HPI. All other systems are other negative and/or noncontributory. PHYSICAL EXAM: General Impression: Alert and oriented x3, not in acute distress HEENT: Normocephalic atraumatic, extra-ocular movements intact, pupils equal and reactive to light bilaterally, dry mucous membranes Cardiovascular: Heart regular rate and rhythm, S1&S2 audible, no murmurs, rubs or gallops Chest: Lungs clear to auscultation bilaterally, no rhonchi, no wheeze, no rales Abdomen: Bowel sounds present, abdomen soft, non-tender, non-distended, no or ganomegaly, wound site clean dry and intact, wound VAC working appropriately without any surrounding skin erythema Musculoskeletal: Pulses present and equal in all extremities, no peripheral edema Motor: no focal deficits noted Neurological: CN II-XII grossly intact, no focal motor or sensory deficits noted Skin: Intact with no visualized rashes Psych: Normal affect and mood ED course: 74-year-old female presents with generalized weakness. Patient has been in the hospital multiple times recently. It appears that her is unable to care for at home given her complex medical issues. Vital signs upon arrival are within acceptable limits. Patient is generally weak on physical examination however does not show any signs of focal neurologic deficits.Lavatory evaluation tape. Leukocytosis 70.9. This appears to be uptrending from patient's baseline. Coag panel is unremarkable. Metabolic panel shows sodium 132, potassium 2.9. Lactic acidosis at 3.4. Magnesium 1.4. Influenza test negative. Discussed patient case with Dr. Dietz who would like to have patient admitted. He requested CT of the abdomen and pelvis be ordered to have infectious season Gen. surgery consult. Patient given potassium replacement and magnesium replacement. The patient has poor oral tolerance p atient was covered with Zosyn IV. - Related Data Home Medications Medication Instructions Recorded Confirmed DULoxetine HCL [Cymbalta] 60 mg PO HS 12/14/16 06/11/19 Ergocalciferol (Vitamin D2) 50,000 unit PO COHEN 12/14/16 06/11/19 [Vitamin D2] Amiodarone [Cordarone] 100 mg PO DAILY 03/02/18 06/11/19 Latanoprost/Pf [Latanoprost 0.005% 1 drop BOTH EYES HS 03/02/18 06/11/19 Eye Drop] Cilostazol [Pletal] 100 mg PO DAILY@0500 11/15/18 06/11/19 Metoprolol Tartrate [Lopressor] 50 mg PO AC-BID@0800,1700 11/15/18 06/11/19 metFORMIN HCL [Glucophage] 500 mg PO AC-BID@0800,1700 11/15/18 06/11/19 L.acidoph,Paracasei, B.lactis 1 cap PO AC-BID@0800,1700 03/05/19 06/11/19 [Probiotic] Levothyroxine Sodium [Synthroid] 88 mcg PO DAILY@0600 03/05/19 06/11/19 predniSONE 10 mg PO DAILY 03/05/19 06/11/19 Ferrous Sulfate [Iron (65 MG 325 mg PO AC-SUPPER 03/30/19 06/11/19 Elemental)] Nystatin 100,000Unit/gm Cream 1 applic TOPICAL BID 03/30/19 06/11/19 [Mycostatin Cream] Loperamide [Imodium] 2 mg PO BID PRN 04/17/19 06/11/19 Potassium Chloride ER [K-Dur 20] 40 meq PO AC-SUPPER 04/17/19 06/11/19 Atorvastatin [Lipitor] 40 mg PO HS 06/01/19 06/11/19 Losartan [Cozaar] 50 mg PO DAILY 06/01/19 06/11/19 Apixaban [Eliquis] 5 mg PO BID 06/03/19 06/11/19 oxyCODONE HCL [OxyCONTIN] 20 mg PO Q8H 06/03/19 06/11/19 Insulin Aspart [NovoLOG Flexpen] 3 unit SQ QAM 06/11/19 06/11/19 predniSONE See Taper PO DIRECTED 06/11/19 06/11/19 Previous Rx's Medication Instructions Recorded Acetaminophen Tab [Tylenol] 650 mg PO Q6HR PRN tab 04/22/19 Pantoprazole [Protonix] 40 mg PO DAILY #15 tablet. 04/22/19 Cefuroxime Axetil [Ceftin] 500 mg PO BID #20 tab 06/05/19 Furosemide [Lasix] 40 mg PO DAILY #0 06/05/19 Gabapentin [Neurontin] 100 mg PO BID #6 cap 06/05/19 Gabapentin [Neurontin] 300 mg PO HS #3 cap 06/05/19 Spironolactone [Aldactone] 50 mg PO DAILY tab 06/05/19 metroNIDAZOLE [Flagyl] 500 mg PO Q8HR #30 tab 06/05/19 Allergies Allergy/AdvReac Type Severity Reaction Status Date / Time morphine Allergy Intermediate Itching Verified 06/11/19 20:07 Review of Systems ROS Statement: Those systems with pertinent positive or pertinent negative responses have been documented in the HPI. ROS Other: All systems not noted in ROS Statement are negative. Past Medical History Past Medical History: Atrial Fibrillation, Coronary Artery Disease (CAD), Diabetes Mellitus, Hyperlipidemia, Hypertension, Memory Impairment, O steoarthritis (OA), Thyroid Disorder, Vascular Disorder Additional Past Medical History / Comment(s): 01/18/19 incisional hernia repair- open with mesh and has drain, paroxysmal Afib, NIDDM type II takes metformin, PAD, decreased circulation to R lower extremity-pt states had several unsuccessful attempts at placing artificial artery, bowel surgery d/t blood clot to colon post operatively, frequent diarrhea, urinary incontinence, chronic elevated WBC, chronic low back pain/pinched nerve, bilateral shoulder pain-DJD, "forgetful", hypothyroid, vertigo at times History of Any Multi-Drug Resistant Organisms: ESBL, Other MDRO, VRE Date of last positivie culture/infection: 03/06/19 VRE; 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 Source:: Abdomen-VRE; Body Fluid Aspirate-ESBL Past Surgical History: Appendectomy, Bowel Resection, Breast Surgery, Cholecystectomy, Coronary Bypass/CABG, Heart Catheterization, Hernia Repair, Joint Replacement, Orthopedic Surgery Additional Past Surgical History / Comment(s): 01/18/19 incisional hernia repair- open with mesh, 12/11/17 CABG 4 vessel, 12/20/17 colectomy/ileostomy with reversal, R leg attempted bypasses with artificial artery which pt states were unsuccessful, L breast benign tumor removed, bilateral total knee arthropl asties, R rotator cuff repair, low back epidural injections, piccs-since removed. Past Anesthesia/Blood Transfusion Reactions: No Reported Reaction Additional Past Anesthesia/Blood Transfusion Reaction / Comment(s): Pt has recently received blood and also years ago received blood without reaction. Past Psychological History: Anxiety, Depression Smoking Status: Former smoker Past Alcohol Use History: None Reported Past Drug Use History: None Reported - Past Family History Mother Family Medical History: Cancer Additional Family Medical History / Comment(s): Uterine cancer. Father Family Medical History: Congestive Heart Failure (CHF) General Exam Limitations: no limitations Course Vital Signs 06/11/19 16:15 Temperature 97.8 F Pulse Rate 77 Respiratory 19 Rate Blood Pressure 125/74 O2 Sat by Pulse 99 Oximetry Medical Decision Making - Lab Data Result diagrams: 06/11/19 19:40 06/11/19 19:40 Lab Results 06/11/19 06/11/19 06/11/19 Range/Units 19:40 19:40 19:40 WBC 17.9 H (3.8-10.6) k/uL RBC 4.67 (3.80-5.40) m/uL Hgb 11.3 L (11.4-16.0) gm/dL Hct 37.1 (34.0-46.0) % MCV 79.4 L (80.0-100.0) fL MCH 24.2 L (25.0-35.0) pg MCHC 30.5 L (31.0-37.0) g/dL RDW 17.8 H (11.5-15.5) % Plt Count 481 H (150-450) k/uL Neutrophils % 82 % Lymphocytes % 8 % Monocytes % 5 % Eosinophils % 4 % Basophils % 1 % Neutrophils # 14.6 H (1.3-7.7) k/uL Lymphocytes # 1.4 (1.0-4.8) k/uL Monocytes # 0.8 (0-1.0) k/uL Eosinophils # 0.6 (0-0.7) k/uL Basophils # 0.2 (0-0.2) k/uL Hypochromasia Slight Anisocytosis Slight Microcytosis Slight PT 9.6 (9.0-12.0) sec INR 0.9 (<1.2) APTT 18.4 L (22.0-30.0) sec Sodium 132 L (137-145) mmol/L Potassium 2.9 L (3.5-5.1) mmol/L Chloride 91 L (98-107) mmol/L Carbon Dioxide 28 (22-30) mmol/L Anion Gap 13 mmol/L BUN 11 (7-17) mg/dL Creatinine 0.63 (0.52-1.04) mg/dL Est GFR (CKD-EPI)AfAm >90 (>60 ml/min/1.73 sqM) Est GFR (CKD-EPI)NonAf 90 (>60 ml/min/1.73 sqM) Glucose 243 H (74-99) mg/dL Plasma Lactic Acid Frederick (0.7-2.0) mmol/L Calcium 9.7 (8.4-10.2) mg/dL Ionized Calcium Adiel 4.8 (4.5-5.3) mg/dL Phosphorus 3.1 (2.5-4.5) mg/dL Magnesium 1.4 L (1.6-2.3) mg/dL Total Bilirubin 0.4 (0.2-1.3) mg/dL AST 31 (14-36) U/L ALT 23 (4-34) U/L Alkaline Phosphatase 191 H (38-126) U/L Troponin I (0.000-0.034) ng/mL Total Protein 6.6 (6.3-8.2) g/dL Albumin 4.0 (3.5-5.0) g/dL Lipase 38 (23-300) U/L TSH 1.700 (0.465-4.680) mIU/L Influenza Type A RNA (Not Detectd) Influenza Type B (PCR) (Not Detectd) 06/11/19 06/11/19 06/11/19 Range/Units 19:40 19:40 19:40 WBC (3.8-10.6) k/uL RBC (3.80-5.40) m/uL Hgb (11.4-16.0) gm/dL Hct (34.0-46.0) % MCV (80.0-100.0) fL MCH (25.0-35.0) pg MCHC (31.0-37.0) g/dL RDW (11.5-15.5) % Plt Count (150-450) k/uL Neutrophils % % Lymphocytes % % Monocytes % % Eosinophils % % Basophils % % Neutrophils # (1.3-7.7) k/uL Lymphocytes # (1.0-4.8) k/uL Monocytes # (0-1.0) k/uL Eosinophils # (0-0.7) k/uL Basophils # (0-0.2) k/uL Hypochromasia Anisocytosis Microcytosis PT (9.0-12.0) sec INR (<1.2) APTT (22.0-30.0) sec Sodium (137-145) mmol/L Potassium (3.5-5.1) mmol/L Chloride (98-107) mmol/L Carbon Dioxide (22-30) mmol/L Anion Gap mmol/L BUN (7-17) mg/dL Creatinine (0.52-1.04) mg/dL Est GFR (CKD-EPI)AfAm (>60 ml/min/1.73 sqM) Est GFR (CKD-EPI)NonAf (>60 ml/min/1.73 sqM) Glucose (74-99) mg/dL Plasma Lactic Acid Frederick 3.4 H* (0.7-2.0) mmol/L Calcium (8.4-10.2) mg/dL Ionized Calcium Adiel (4.5-5.3) mg/dL Phosphorus (2.5-4.5) mg/dL Magnesium (1.6-2.3) mg/dL Total Bilirubin (0.2-1.3) mg/dL AST (14-36) U/L ALT (4-34) U/L Alkaline Phosphatase (38-126) U/L Troponin I <0.012 (0.000-0.034) ng/mL Total Protein (6.3-8.2) g/dL Albumin (3.5-5.0) g/dL Lipase (23-300) U/L TSH (0.465-4.680) mIU/L Influenza Type A RNA Not Detected (Not Detectd) Influenza Type B (PCR) Not Detected (Not Detectd) Disposition Clinical Impression: Weakness, SIRS (systemic inflammatory response syndrome) Disposition: ADMITTED IP TO THIS [facility] Condition: Fair Referrals: Diaz Alcala DO [Primary Care Provider] - 1-2 days Decision Time: 20:54
[2019-06-11 20:02] LABS: Anisocytosis Slight; Basophils # (A) 0.2 k/uL (0-0.2); Basophils % (A) 1 %; Eosinophils # (A) 0.6 k/uL (0-0.7); Eosinophils % (A) 4 %; HCT 37.1 % (34.0-46.0); HGB 11.3 gm/dL (11.4-16.0); Hypochromasia Slight; Lymphocytes # (A) 1.4 k/uL (1.0-4.8); Lymphocytes % (A) 8 %; MCH 24.2 pg (25.0-35.0); MCHC 30.5 g/dL (31.0-37.0); MCV 79.4 fL (80.0-100.0); Mean Platelet Volume 7.2; Microcytosis Slight; Monocytes # (A) 0.8 k/uL (0-1.0); Monocytes % (A) 5 %; Neutrophils # (A) 14.6 k/uL (1.3-7.7); Neutrophils % (A) 82 %; Platelet Count 481 k/uL (150-450); RBC 4.67 m/uL (3.80-5.40); RDW 17.8 % (11.5-15.5); WBC 17.9 k/uL (3.8-10.6)
[2019-06-11 20:06] LABS: Ionized Calcium 4.8 mg/dL (4.5-5.3)
[2019-06-11 20:16] LABS: ALT 23 U/L (4-34); AST 31 U/L (14-36); African American GFR (CKD) >90 (>60 ml/min/1.73 sqM); Alkaline Phosphatase 191 U/L (38-126); Anion Gap 13 mmol/L; Blood Urea Nitrogen 11 mg/dL (7-17); Calcium 9.7 mg/dL (8.4-10.2); Carbon Dioxide 28 mmol/L (22-30); Chloride 91 mmol/L (98-107); Glucose 243 mg/dL (74-99); Magnesium 1.4 mg/dL (1.6-2.3); Non-African American GFR(CKD) 90 (>60 ml/min/1.73 sqM); Phosphorus 3.1 mg/dL (2.5-4.5); Potassium 2.9 mmol/L (3.5-5.1); Sodium 132 mmol/L (137-145); Total Bilirubin 0.4 mg/dL (0.2-1.3); Total Protein 6.6 g/dL (6.3-8.2)
[2019-06-11 20:24] LABS: INR 0.9 (<1.2); Prothrombin Time 9.6 sec (9.0-12.0)
[2019-06-11 20:28] LABS: Partial Thromboplastin Time 18.4 sec (22.0-30.0)
[2019-06-11] MEDS ORDERED: ONDANSETRON 4 MG/2 ML VIAL IVP PRN (20:50)
[2019-06-11] MEDS ORDERED: NALOXONE 0.4 MG/ML 1 ML VIAL IV PRN (20:50)
[2019-06-11] MEDS ORDERED: METOCLOPRAMIDE 5 MG/ML 2 ML VIAL IVP PRN (21:12)
--- NOTE | 2019-06-11 21:12 | CT ---
EXAMINATION TYPE: CT abdomen pelvis w con DATE OF EXAM: 06/11/2019 COMPARISON: June 01, 2019 HISTORY: abdominal pain, fever. hx of diverticulitis. CT DLP: 1595.5 mGycm Automated exposure control for dose reduction was used. CONTRAST: Performed with IV Contrast, patient injected with 100 mL of Isovue 300. Multiple axial sections were obtained from the diaphragm to the floor the pelvis with intravenous con trast. There is minimal subsegmental atelectasis at the lung bases. Heart size is normal. There is no perica rdial effusion. Stomach is intact. There are numerous calcified splenic granulomata. There is no panc reatic mass. There are clips from cholecystectomy. Liver shows no focal defect. The bile ducts are no t dilated. There is no adrenal mass. Kidneys show satisfactory contrast opacification. There is no hydronephrosi s. There is 1 cm cortical cyst upper pole left kidney. Delayed images show normal renal excretion. There is defect on the anterior abdominal wall with dehiscence of the skin. There is no retroperitone al adenopathy. Abdominal aorta is atheromatous. Bladder distends smoothly. There is no inguinal herni a. There is no free fluid in the pelvis. There is mild retained fecal material in the left colon. There is no mesenteric edema. There is no ascites or free air. There is increased density in the subc utaneous fat over the area of dehiscence. There is 5 mm anterior subluxation of L4 in relation L5. There is disc space narrowing in the lumbar spine. There is no compression fracture. Bony pelvis is intact. There is no evidence of a bowel obstr uction. Appendix is not seen. There is no sign of thickened appendix. There appears to be right hemic olectomy with ileocolic anastomosis at the hepatic flexure of the colon. IMPRESSION: There is anterior abdominal wall dehiscence unchanged. There is subcutaneous thickening across the ab domen at the dehiscence measuring up to 11 mm unchanged. Atherosclerotic vascular disease. There is c learing of small right pleural effusion compared to old exam. Mild basilar atelectasis unchanged. Old granulomatous disease.
[2019-06-11] MEDS: MAGNESIUM SULFATE-D5W PMX 1 GM in DEXTROSE/WATER 1 100ML.BAG IVPB SCH ×2 (21:30→22:43)
[2019-06-11] MEDS: SODIUM CHLORIDE 0.9% 1,000 ML IV SCH (21:37)
[2019-06-11] MEDS: POTASSIUM CHLORIDE 20 MEQ in WATER FOR INJECTION 1 100ML.BAG IVPB SCH (21:38)
[2019-06-11] MEDS: CILOSTAZOL 100 MG TAB PO SCH (21:40)
[2019-06-11] MEDS: ATORVASTATIN 40 MG TAB PO SCH (21:40)
[2019-06-11] MEDS: APIXABAN 5 MG TAB PO SCH (21:40)
[2019-06-11] MEDS: DULoxetine HCL 60 MG CAPSULE.DR PO SCH (21:40)
[2019-06-11] MEDS ORDERED: HYDROcodone/APAP 5-325MG 1 EACH TAB PO PRN (21:45)
[2019-06-11] MEDS ORDERED: HYDROcodone/APAP 5-325MG 1 EACH TAB PO STA (21:45)
[2019-06-11] MEDS: GABAPENTIN 300 MG CAP PO SCH (22:40)
[2019-06-12] MEDS: PIPERACILLIN-TAZOBACTAM 3.375 GM in SODIUM CHLORIDE 0.9% 100 ML IVPB SCH ×3 (00:51→17:09)
[2019-06-12] MEDS: LEVOTHYROXINE 88 MCG TAB PO SCH (07:26)
[2019-06-12] MEDS: POTASSIUM CHLORIDE 20 MEQ in WATER FOR INJECTION 1 100ML.BAG IVPB SCH (07:31)
[2019-06-12] MEDS ORDERED: predniSONE 10 MG TAB PO SCH (09:00)
[2019-06-12] MEDS ORDERED: ACETAMINOPHEN TAB 325 MG TAB PO PRN (10:15)
[2019-06-12] MEDS ORDERED: LOPERAMIDE 2 MG CAP PO PRN (10:15)
[2019-06-12] MEDS: LOSARTAN 50 MG TAB PO SCH (10:29)
[2019-06-12] MEDS: SPIRONOLACTONE 25 MG TAB PO SCH (10:29)
[2019-06-12] MEDS: metFORMIN 500 MG TAB PO SCH ×2 (10:29→17:13)
[2019-06-12] MEDS: AMIODARONE 100 MG TAB PO SCH (10:29)
[2019-06-12] MEDS: METOPROLOL TARTRATE 50 MG TAB PO SCH ×2 (10:30→17:14)
[2019-06-12] MEDS: APIXABAN 5 MG TAB PO SCH ×2 (10:31→22:07)
[2019-06-12] MEDS: HYDROCORTISONE SUCCINATE 100 MG/2 ML VIAL IV SCH ×2 (10:50→17:12)
[2019-06-12] MEDS: GABAPENTIN 100 MG CAP PO SCH ×2 (10:53→17:24)
[2019-06-12] MEDS: oxyCODONE ER 20 MG TAB.ER.12H PO SCH ×2 (10:53→17:24)
[2019-06-12] MEDS: PANTOPRAZOLE 40 MG TABLET PO SCH (10:56)
[2019-06-12] MEDS: FERROUS SULFATE 325 MG TAB PO SCH (17:13)
--- NOTE | 2019-06-12 18:16 | P.HPIM ---
History of Present Illness H&P Date: 06/12/19 Chief Complaint: Tired Chief Complaint: Abdominal discomfort History of presenting complaint: This is a pleasant 74-year-old patient of Dr. Alcala. Chronic stable medical conditions include atrial fibrillation, coronary artery disease, diabetes, h yperlipidemia, hypertension, osteoarthritis, hypothyroid, peripheral arterial disease. December 2017 had a "coronary bypass, complicated by ischemic bowel resulting in the ostomy and a wound VAC. Patient subsequently had intra- abdominal abscess and required protracted course of antibiotics. March 2018 had an abscess and patient did have a MASTER drain in place for the same. December 2018 patient had the incisional hernia with mesh placed. By Dr. Montoya. Patient did undergo admission for significant drainage from MASTER drain. admitted on March 03 and discharged on March 13 and during that admission infected mesh was removed. Patient had a wound VAC placed. Patient was discharged on March 13 with 2 week course of IV daptomycin, IV Invanz, and Bactrim. Wound cultures had grown S maltophilia, VRE, staph epidermidis. Patient April 01 admitted with delirium. Dose of OxyContin was cut back. Since then patient was in [place] visiting her son in law and was admitted to the hospital after she became sick. Received antibiotics. Patient intubated. From May 31 through June 05. Admitted with sigmoid diverticulitis. And also adrenal insufficiency. Patient was discharged on 10 days of Ceftin and Flagyl. Patient now presents with feeling weak tired rundown. Yesterday he slept all day or night. Except for going to the bathroom. Denies any fever and chills. Having upper abdominal discomfort. Significant nausea. Patient continues to have a wound VAC. Patient did have some loose stools on Monday and Monday. No fever and chills. Appetite has been okay. Rundown. Patient started on antibiotics in the ER.. Review of systems: GEN.: Tired EYES: None HEENT: None NECK: None RESPIRATORY: None CARDIOVASCULAR: None GASTROINTESTINAL: As above GENITOURINARY: None MUSCULOSKELETAL: Chronic joint pains LYMPHATICS: None HEMATOLOGICAL: None PSYCHIATRY: None NEUROLOGICAL: Very sleepy Past medical history: Coronary artery disease with bypass, acute ischemic bowel with perforation, paroxysmal atrial fibrillation, peripheral artery disease, hypothyroid, diabetes mellitus type 2, chronic low back pain from arthritis, depression, hyperlipidemia, hypertension, recurrent intra-abdominal abscess,removal of infected abdominal mesh Social history: Smoked a pack a day for 43 years. Stopped in 2007 alcohol rarely. . Lives in [place] with the . Family history: Uterine cancer Physical examination: VITAL SIGNS: 97.8-77-19-125/74-99% on room air GENERAL: Laying in bed, tired EYES: Pupils equal. Conjunctiva pale HEENT: External appearance of nose and ears normal, oral cavity dry NECK: JVD unable to assess; masses not palpable. HEART: First and second heart sounds are normal; some edema. LUNGS: Respiratory rate normal; decreased breath sounds. ABDOMEN: Soft, wound VAC in place. Minimal tenderness, no guarding or rigidity, liver spleen not palpable, PSYCH: AAO 3, motor affect normal NEUROLOGICAL: Cranial nerves grossly intact, SENSATION grossly intact INVESTIGATIONS, reviewed in the clinical context: White count 7.9 hemoglobin 11.3 platelets 41 potassium 2.9 bun 11 creatinine 0.63 Lactic acid 3.4 Computed tomography scan of the abdomen and pelvis-not much different than previous computed tomography scan. Assessment: -Patient rather extensive medical history regarding intra-abdominal abscess from ischemic bowel with multiple episodes of the same, the wound VAC in place. Patient presents with feeling weak tired rundown very sleepy. No fever.Elevated white count. Recent admission with sigmoid diverticulitis. Empirically being treated for infection currently. -Severe hypokalemia could be contributing -Possible adrenal insufficiency due to that patient continue steroids for a while.. 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 We will add stress dose of IV hydrocortisone 25 mg 3 times a day. Patient be put on a soft diet. Other home medications reviewed. And reviewed. Potassium to be aggressively replaced. Consultations made to IDODILIA Montoya from general surgery. Care was discussed with the patient question answered. Follow labs. Past Medical History Past Medical History: Atrial Fibrillation, Coronary Artery Disease (CAD), Diabetes Mellitus, Hyperlipidemia, Hypertension, Memory Impairment, Osteoarthritis (OA), Thyroid Disorder, Vascular Disorder Additional Past Medical History / Comment(s): 01/18/19 incisional hernia repair- open with mesh and has drain, paroxysmal Afib, NIDDM type II takes metformin, PAD, decreased circulation to R lower extremity-pt states had several unsuccessful attempts at placing artificial artery, bowel surgery d/t blood clot to colon post operatively, frequent diarrhea, urinary incontinence, chronic e levated WBC, chronic low back pain/pinched nerve, bilateral shoulder pain-DJD, "forgetful", hypothyroid, vertigo at times History of Any Multi-Drug Resistant Organisms: ESBL, Other MDRO, VRE Date of last positivie culture/infection: 03/06/19 VRE; 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 Source:: Abdomen-VRE; Body Fluid Aspirate-ESBL Past Surgical History: Appendectomy, Bowel Resection, Breast Surgery, Cholecystectomy, Coronary Bypass/CABG, Heart Catheterization, Hernia Repair, Joint Replacement, Orthopedic Surgery Additional Past Surgical History / Comment(s): 01/18/19 incisional hernia repair- open with mesh, 12/11/17 CABG 4 vessel, 12/20/17 colectomy/ileostomy with reversal, R leg attempted bypasses with artificial artery which pt states were unsuccessful, L breast benign tumor removed, bilateral total knee arthroplasties, R rotator cuff repair, low back epidural injections, piccs-since removed. Past Anesthesia/Blood Transfusion Reactions: No Reported Reaction Additional Past Anesthesia/Blood Transfusion Reaction / Comment(s): Pt has recently received blood and also years ago received blood without reaction. Past Psychological History: Anxiety, Depression Smoking Status: Former smoker Past Alcohol Use History: None Reported Past Drug Use History: None Reported - Past Family History Mother Family Medical History: Cancer Additional Family Medical History / Comment(s): Uterine cancer. Father Family Medical History: Congestive Heart Failure (CHF) Medications and Allergies Home Medications Medication Instructions Recorded Confirmed Type DULoxetine HCL [Cymbalta] 60 mg PO HS 12/14/16 06/11/19 History Ergocalciferol (Vitamin D2) 50,000 unit PO COHEN 12/14/16 06/11/19 History [Vitamin D2] Amiodarone [Cordarone] 100 mg PO DAILY 03/02/18 06/11/19 History Latanoprost/Pf [Latanoprost 0.005% 1 drop BOTH EYES HS 03/02/18 06/11/19 History Eye Drop] Cilostazol [Pletal] 100 mg PO DAILY@0500 11/15/18 06/11/19 History Metoprolol Tartrate [Lopressor] 50 mg PO AC-BID@0800,1700 11/15/18 06/11/19 History metFORMIN HCL [Glucophage] 500 mg PO AC-BID@0800,1700 11/15/18 06/11/19 History L.acidoph,Paracasei, B.lactis 1 cap PO AC-BID@0800,1700 03/05/19 06/11/19 History [Probiotic] Levothyroxine Sodium [Synthroid] 88 mcg PO DAILY@0600 03/05/19 06/11/19 History predniSONE 10 mg PO DAILY 03/05/19 06/11/19 History Ferrous Sulfate [Iron (65 MG 325 mg PO AC-SUPPER 03/30/19 06/11/19 History Elemental)] Nystatin 100,000Unit/gm Cream 1 applic TOPICAL BID 03/30/19 06/11/19 History [Mycostatin Cream] Loperamide [Imodium] 2 mg PO BID PRN 04/17/19 06/11/19 History Potassium Chloride ER [K-Dur 20] 40 meq PO AC-SUPPER 04/17/19 06/11/19 History Acetaminophen Tab [Tylenol] 650 mg PO Q6HR PRN tab 04/22/19 06/11/19 Rx Pantoprazole [Protonix] 40 mg PO DAILY #15 tablet. 04/22/19 06/11/19 Rx Atorvastatin [Lipitor] 40 mg PO HS 06/01/19 06/11/19 History Losartan [Cozaar] 50 mg PO DAILY 06/01/19 06/11/19 History Apixaban [Eliquis] 5 mg PO BID 06/03/19 06/11/19 History oxyCODONE HCL [OxyCONTIN] 20 mg PO Q8H 06/03/19 06/11/19 History Cefuroxime Axetil [Ceftin] 500 mg PO BID #20 tab 06/05/19 06/11/19 Rx Furosemide [Lasix] 40 mg PO DAILY #0 06/05/19 06/11/19 Rx Gabapentin [Neurontin] 100 mg PO BID #6 cap 06/05/19 06/11/19 Rx Gabapentin [Neurontin] 300 mg PO HS #3 cap 06/05/19 06/11/19 Rx Spironolactone [Aldactone] 50 mg PO DAILY tab 06/05/19 06/11/19 Rx metroNIDAZOLE [Flagyl] 500 mg PO Q8HR #30 tab 06/05/19 06/11/19 Rx Insulin Aspart [NovoLOG Flexpen] 3 unit SQ QAM 06/11/19 06/11/19 History predniSONE See Taper PO DIRECTED 06/11/19 06/11/19 History Allergies Allergy/AdvReac Type Severity Reaction Status Date / Time morphine Allergy Intermediate Itching Verified 06/11/19 20:07 Physical Exam Vitals: Vital Signs Temp Pulse Resp BP Pulse Ox 06/12/19 07:33 75 16 141/79 100 06/11/19 23:00 73 20 131/85 99 06/11/19 21:00 78 20 135/95 99 06/11/19 19:45 81 20 138/56 99 06/11/19 16:15 97.8 F 77 19 125/74 99 Intake and Output 06/11/19 06/12/19 06/12/19 22:59 06:59 14:59 Other: Weight 81.647 kg Results CBC & Chem 7: 06/11/19 19:40 06/11/19 19:40 Labs: Abnormal Lab Results - Last 24 Hours (Table) 06/11/19 06/11/19 06/11/19 Range/Units 19:40 19:40 19:40 WBC 17.9 H (3.8-10.6) k/uL Hgb 11.3 L (11.4-16.0) gm/dL MCV 79.4 L (80.0-100.0) fL MCH 24.2 L (25.0-35.0) pg MCHC 30.5 L (31.0-37.0) g/dL RDW 17.8 H (11.5-15.5) % Plt Count 481 H (150-450) k/uL Neutrophils # 14.6 H (1.3-7.7) k/uL APTT 18.4 L (22.0-30.0) sec Sodium 132 L (137-145) mmol/L Potassium 2.9 L (3.5-5.1) mmol/L Chloride 91 L (98-107) mmol/L Glucose 243 H (74-99) mg/dL Plasma Lactic Acid Frederick (0.7-2.0) mmol/L Magnesium 1.4 L (1.6-2.3) mg/dL Alkaline Phosphatase 191 H (38-126) U/L 06/11/19 06/11/19 Range/Units 19:40 23:48 WBC (3.8-10.6) k/uL Hgb (11.4-16.0) gm/dL MCV (80.0-100.0) fL MCH (25.0-35.0) pg MCHC (31.0-37.0) g/dL RDW (11.5-15.5) % Plt Count (150-450) k/uL Neutrophils # (1.3-7.7) k/uL APTT (22.0-30.0) sec Sodium (137-145) mmol/L Potassium (3.5-5.1) mmol/L Chloride (98-107) mmol/L Glucose (74-99) mg/dL Plasma Lactic Acid Frederick 3.4 H* 2.6 H* (0.7-2.0) mmol/L Magnesium (1.6-2.3) mg/dL Alkaline Phosphatase (38-126) U/L
[2019-06-12] MEDS: ATORVASTATIN 40 MG TAB PO SCH (22:06)
[2019-06-12] MEDS: SODIUM CHLORIDE 0.9% 1,000 ML IV SCH (22:07)
[2019-06-12] MEDS: DULoxetine HCL 60 MG CAPSULE.DR PO SCH (22:07)
[2019-06-12] MEDS: GABAPENTIN 300 MG CAP PO SCH (22:07)
[2019-06-12] MEDS: NYSTATIN 100,000UNIT/GM CREAM 30 GM TUBE TOPICAL SCH (22:07)
[2019-06-12] MEDS: LATANOPROST 0.005% OPHTH DROPS 2.5 ML BTL BOTH EYES SCH (22:14)
--- NOTE | 2019-06-13 | P.CONS ---
History of Present Illness - Reason for Consult Consult date: 06/12/19 Infection/leukocytosis Requesting physician: Parveen Dietz - Chief Complaint Weakness and unable to take care of herself x days - History of Present Illness Patient is a 74-year-old female with a past medical history significant for abdominal incisional hernia repair that occurred complicated with postop hematoma subsequent infection requiring removal of the infected mesh prolonged course of antibiotic and the current local wound care with a wound VAC patient was recently admitted to this facility with vomiting and abdominal pain She was diagnosed with acute diverticulitis patient clinically improved on Rocephin and Flagyl and was just discharged home on oral Ceftin and Flagyl with the patient was currently taking, patient is now brought back to the hospital with a chief complaint of generalized weakness and inability to care for herself patient was able to tolerate anything orally, with the symptoms the patient was evaluated by the ER physician, on arrival to the ER the patient was afebrile, the patient did have elevated white count of 17,[address] of abdominal pelvis which did not show any acute changes, the patient was started on Zosyn and to the hospital infectious disease was consulted for further recommendations regarding antibiotic therapy, patient wound VAC was changed (staff this morning and mentioned that wound base looks clean and the patient has no symptoms referable to the wound VAC and abdominal wound Review of Systems Positive point has been mentioned in the HPI rest of the systems are negative Past Medical History Past Medical History: Atrial Fibrillation, Coronary Artery Disease (CAD), Diabetes Mellitus, Hyperlipidemia, Hypertension, Memory Impairment, Osteoarthritis (OA), Thyroid Disorder, Vascular Disorder Additional Past Medical History / Comment(s): 01/18/19 incisional hernia repair- open with mesh and has drain, paroxysmal Afib, NIDDM type II takes metformin, PAD, decreased circulation to R lower extremity-pt states had several unsuccessful attempts at placing artificial artery, bowel surgery d/t blood clot to colon post operatively, frequent diarrhea, urinary incontinence, chronic elevated WBC, chronic low back pain/pinched nerve, bilateral shoulder pain-DJD, "forgetful", hypothyroid, vertigo at times History of Any Multi-Drug Resistant Organisms: ESBL, Other MDRO, 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; 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 Source:: Abdomen-VRE; Body Fluid Aspirate-ESBL Past Surgical History: Appendectomy, Bowel Resection, Breast Surgery, Cholecystectomy, Coronary Bypass/CABG, Heart Catheterization, Hernia Repair, Joint Replacement, Orthopedic Surgery Additional Past Surgical History / Comment(s): 01/18/19 incisional hernia repair- open with mesh, 12/11/17 CABG 4 vessel, 12/20/17 colectomy/ileostomy with reversal, R leg attempted bypasses with artificial artery which pt states were unsuccessful, L breast benign tumor removed, bilateral total knee arthroplast ies, R rotator cuff repair, low back epidural injections, piccs-since removed. Past Anesthesia/Blood Transfusion Reactions: No Reported Reaction Additional Past Anesthesia/Blood Transfusion Reaction / Comm: Pt has recently received blood and also years ago received blood without reaction. Past Psychological History: Anxiety, Depression Smoking Status: Former smoker Past Alcohol Use History: None Reported Past Drug Use History: None Reported - Past Family History Mother Family Medical History: Cancer Additional Family Medical History / Comment(s): Uterine cancer. Father Family Medical History: Congestive Heart Failure (CHF) Medications and Allergies Home Medications Medication Instructions Recorded Confirmed Type DULoxetine HCL [Cymbalta] 60 mg PO HS 12/14/16 06/11/19 History Ergocalciferol (Vitamin D2) 50,000 unit PO COHEN 12/14/16 06/11/19 History [Vitamin D2] Amiodarone [Cordarone] 100 mg PO DAILY 03/02/18 06/11/19 History Latanoprost/Pf [Latanoprost 0.005% 1 drop BOTH EYES HS 03/02/18 06/11/19 History Eye Drop] Cilostazol [Pletal] 100 mg PO DAILY@0500 11/15/18 06/11/19 History Metoprolol Tartrate [Lopressor] 50 mg PO AC-BID@0800,1700 11/15/18 06/11/19 History metFORMIN HCL [Glucophage] 500 mg PO AC-BID@0800,1700 11/15/18 06/11/19 History L.acidoph,Paracasei, B.lactis 1 cap PO AC-BID@0800,1700 03/05/19 06/11/19 History [Probiotic] Levothyroxine Sodium [Synthroid] 88 mcg PO DAILY@0600 03/05/19 06/11/19 History predniSONE 10 mg PO DAILY 03/05/19 06/11/19 History Ferrous Sulfate [Iron (65 MG 325 mg PO AC-SUPPER 03/30/19 06/11/19 History Elemental)] Nystatin 100,000Unit/gm Cream 1 applic TOPICAL BID 03/30/19 06/11/19 History [Mycostatin Cream] Loperamide [Imodium] 2 mg PO BID PRN 04/17/19 06/11/19 History Potassium Chloride ER [K-Dur 20] 40 meq PO AC-SUPPER 04/17/19 06/11/19 History Acetaminophen Tab [Tylenol] 650 mg PO Q6HR PRN tab 04/22/19 06/11/19 Rx Pantoprazole [Protonix] 40 mg PO DAILY #15 tablet.dr 04/22/19 06/11/19 Rx Atorvastatin [Lipitor] 40 mg PO HS 06/01/19 06/11/19 History Losartan [Cozaar] 50 mg PO DAILY 06/01/19 06/11/19 History Apixaban [Eliquis] 5 mg PO BID 06/03/19 06/11/19 History oxyCODONE HCL [OxyCONTIN] 20 mg PO Q8H 06/03/19 06/11/19 History Cefuroxime Axetil [Ceftin] 500 mg PO BID #20 tab 06/05/19 06/11/19 Rx Furosemide [Lasix] 40 mg PO DAILY #0 06/05/19 06/11/19 Rx Gabapentin [Neurontin] 100 mg PO BID #6 cap 06/05/19 06/11/19 Rx Gabapentin [Neurontin] 300 mg PO HS #3 cap 06/05/19 06/11/19 Rx Spironolactone [Aldactone] 50 mg PO DAILY tab 06/05/19 06/11/19 Rx metroNIDAZOLE [Flagyl] 500 mg PO Q8HR #30 tab 06/05/19 06/11/19 Rx Insulin Aspart [NovoLOG Flexpen] 3 unit SQ QAM 06/11/19 06/11/19 History predniSONE See Taper PO DIRECTED 06/11/19 06/11/19 History Allergies Allergy/AdvReac Type Severity Reaction Status Date / Time morphine Allergy Intermediate Itching Verified 06/11/19 20:07 Physical Exam Vitals: Vital Signs Temp Pulse Pulse Resp BP BP Pulse Ox 06/12/19 23:25 65 16 06/12/19 20:00 97 F L 65 16 135/74 98 06/12/19 14:54 85 18 06/12/19 14:52 97.2 F L 85 18 111/68 96 06/12/19 11:57 98.5 F 87 18 145/82 95 06/12/19 11:23 72 16 125/86 99 06/12/19 07:33 75 16 141/79 100 Intake and Output 06/12/19 06/12/19 06/13/19 14:59 22:59 06:59 Other: Voiding Method Bedside Commode Bedside Commode Bedside Commode GENERAL DESCRIPTION: An elderly female lying in bed, no distress. No tachypnea or accessory muscle of respiration use. HEENT: Shows Pallor , no scleral icterus. Oral mucous membrane is dry. No pharyngeal erythema or thrush NECK: Trachea central, no thyromegaly. LUNGS: Unlabored breathing. Clear to auscultation anteriorly. No wheeze or crackle. HEART: S1, S2, regular rate and rhythm. No loud murmur ABDOMEN: Soft, abdominal wound is currently covered with a wound VAC ,no tenderness , guarding or rigidity, no organomegaly EXTREMITIES: No edema of feet. SKIN: No rash, no masses palpable. NEUROLOGICAL: The patient is awake, alert, oriented x3, mood and affect normal. Results CBC & Chem 7: 06/11/19 19:40 06/11/19 19:40 Labs: Abnormal Lab Results - Last 24 Hours (Table) 06/11/19 Range/Units 23:48 Plasma Lactic Acid Frederick 2.6 H* (0.7-2.0) mmol/L Assessment and Plan Assessment: 1-patient presented to the hospital with generalized weakness which is likely multifactorial in this patient did have elevated white count which is also multifactorial in this patient currently with no fever and the patient does not look toxic, pulmonary symptoms and was suspicious for pneumonia CT abdominal pelvis did not show any acute abnormality abdominal bruits clean concern for possible UTI (1) Open abdominal wall wound Current Visit: Yes Status: Acute Code(s): S31.109A - UNSP OPN WND ABD WALL, UNSP Q W/O PENET PERIT CAV, INIT SNOMED Code(s): 643724539 (2) Leukocytosis Current Visit: Yes Status: Acute Code(s): D72.829 - ELEVATED WHITE BLOOD CELL COUNT, UNSPECIFIED SNOMED Code(s): 026985456 Plan: 1- we will check a UA and culture 2- gentle IV fluid 3-local wound care to the abdominal wound with a wound VAC continuous pressure 1 25 mmHg to be change Monday 4- Zosyn 3.375 g every 8 hours while waiting for the culture finalized and condition to stabilized We will follow on clinical condition and cultures to further adjust medication if needed Thank you for this consultation will follow this patient with you Time with Patient: Greater than 30
[2019-06-13] MEDS: HYDROCORTISONE SUCCINATE 100 MG/2 ML VIAL IV SCH ×4 (02:43→23:14)
[2019-06-13] MEDS: oxyCODONE ER 20 MG TAB.ER.12H PO SCH ×3 (02:43→17:39)
[2019-06-13] MEDS: PIPERACILLIN-TAZOBACTAM 3.375 GM in SODIUM CHLORIDE 0.9% 100 ML IVPB SCH ×4 (02:45→23:13)
[2019-06-13] MEDS: LEVOTHYROXINE 88 MCG TAB PO SCH (05:53)
[2019-06-13] MEDS: CILOSTAZOL 100 MG TAB PO SCH ×2 (05:53→23:10)
[2019-06-13] MEDS: PANTOPRAZOLE 40 MG TABLET PO SCH (06:01)
[2019-06-13 07:28] LABS: Anisocytosis Slight; HCT 30.6 % (34.0-46.0); Hypochromasia Marked; MCH 24.7 pg (25.0-35.0); MCHC 30.6 g/dL (31.0-37.0); MCV 80.7 fL (80.0-100.0); Mean Platelet Volume 7.5; Microcytosis Slight; Platelet Count 539 k/uL (150-450); RBC 3.79 m/uL (3.80-5.40); RDW 17.4 % (11.5-15.5); WBC 10.4 k/uL (3.8-10.6)
[2019-06-13 07:32] LABS: African American GFR (CKD) >90 (>60 ml/min/1.73 sqM); Anion Gap 9 mmol/L; Blood Urea Nitrogen 8 mg/dL (7-17); Calcium 9.2 mg/dL (8.4-10.2); Carbon Dioxide 27 mmol/L (22-30); Chloride 99 mmol/L (98-107); Glucose 256 mg/dL (74-99); Non-African American GFR(CKD) 89 (>60 ml/min/1.73 sqM); Potassium 3.7 mmol/L (3.5-5.1); Sodium 135 mmol/L (137-145)
[2019-06-13 07:37] LABS: HGB 9.4 gm/dL (11.4-16.0)
[2019-06-13] MEDS: APIXABAN 5 MG TAB PO SCH ×2 (08:57→23:10)
[2019-06-13] MEDS: metFORMIN 500 MG TAB PO SCH ×2 (08:58→17:40)
[2019-06-13] MEDS: GABAPENTIN 100 MG CAP PO SCH ×2 (08:58→17:39)
[2019-06-13] MEDS: LOSARTAN 50 MG TAB PO SCH (08:58)
[2019-06-13] MEDS: METOPROLOL TARTRATE 50 MG TAB PO SCH ×2 (08:59→17:40)
[2019-06-13] MEDS: SPIRONOLACTONE 25 MG TAB PO SCH (09:00)
[2019-06-13] MEDS: AMIODARONE 100 MG TAB PO SCH (09:01)
[2019-06-13] MEDS: NYSTATIN 100,000UNIT/GM CREAM 30 GM TUBE TOPICAL SCH ×2 (09:34→12:29)
[2019-06-13] MEDS: SODIUM CHLORIDE 0.9% 1,000 ML IV SCH (09:59)
[2019-06-13 13:07] LABS: Appearance,Urine Clear (Clear); Bilirubin,Urine Negative (Negative); Blood,Urine Negative (Negative); Color,Urine Light Yellow; Glucose,Urine (UA) 4+ (Negative); Ketones,Urine Negative (Negative); Leukocyte Esterase,Urine Negative (Negative); Nitrite,Urine Negative (Negative); Protein,Urine Trace (Negative); Specific Gravity,Urine 1.019 (1.001-1.035); Urobilinogen,Urine <2.0 mg/dL (<2.0)
--- NOTE | 2019-06-13 15:31 | P.GSCN ---
History of Present Illness Consult date: 06/13/19 Reason for Consult: Abdominal pain History of present illness: CHIEF COMPLAINT: Abdominal pain HISTORY OF PRESENT ILLNESS: 74-year-old female well-known to surgical services for incisional hernia repair and postoperative abscess with removal of infected mesh. Patient has had a wound VAC to her abdomen since that time. She reports feeling lethargic for the past couple days. She reports increased urinary frequency and burning with urination. She denies abdominal pain. PAST MEDICAL HISTORY: See list. PAST SURGICAL HISTORY: See list. SOCIAL HISTORY: No illicit drug use. REVIEW OF SYSTEMS: CONSTITUTIONAL: Denies fever or chills. HEENT: Denies blurred vision, vision changes, or eye pain. Denies hemoptysis CARDIOVASCULAR: Denies chest pain or pressure. RESPIRATORY: No shortness of breath. GASTROINTESTINAL: Refer to HPI for pertinent findings HEMATOLOGIC: Denies bleeding disorders. GENITOURINARY: Denies any blood in urine. SKIN: Denies pruitis. Denies rash. PHYSICAL EXAM: VITAL SIGNS: Reviewed. GENERAL: Well-developed in no acute distress. HEENT: No sclera icterus. Extraocular movements grossly intact. Moist buccal mucosa. Head is atraumatic, normocephalic. ABDOMEN: Soft. Nondistended. Nontender. Wound VAC to abdomen noted. NEUROLOGIC: Alert and oriented. Cranial nerves II through XII grossly intact. LABORATORY DATA: WBC 10.4. Hemoglobin 9.4. Platelet count 539. IMAGING: CT abdomen and pelvis: Anterior abdominal wall dehiscence unchanged. Subcutaneous thickening across abdomen at the dehiscence measuring up to 11 mm unchanged. ASSESSMENT: 1. Lethargy, leukocytosis 2. History of incisional hernia repair, complicated by rectus sheath hemorr africa, December 2018 3. History of postoperative intra-abdominal abscess, status post incisional he rnia repair with recent removal of infected mesh PLAN: Do not suspect patient's lethargy and leukocytosis are secondary to abdominal wound Check UA/culture due to patient's recent recurrent urinary tract infection No surgical intervention recommended at this time Nurse practitioner note has been reviewed by physician. Signing provider agrees with the documented findings, assessment, and plan of care. Past Medical History Past Medical History: Atrial Fibrillation, Coronary Artery Disease (CAD), Diabetes Mellitus, Hyperlipidemia, Hypertension, Memory Impairment, Osteoarthritis (OA), Thyroid Disorder, Vascular Disorder Additional Past Medical History / Comment(s): 01/18/19 incisional hernia repair- open with mesh and has drain, paroxysmal Afib, NIDDM type II takes metformin, PAD, decreased circulation to R lower extremity-pt states had several unsuccessful attempts at placing artificial artery, bowel surgery d/t blood clot to colon post operatively, frequent diarrhea, urinary incontinence, chronic elevated WBC, chronic low back pain/pinched nerve, bilateral shoulder pain-DJD, "forgetful", hypothyroid, vertigo at times History of Any Multi-Drug Resistant Organisms: ESBL, Other MDRO, 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; 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 Source:: Abdomen-VRE; Body Fluid Aspirate-ESBL Past Surgical History: Appendectomy, Bowel Resection, Breast Surgery, Cholecystectomy, Coronary Bypass/CABG, Heart Catheterization, Hernia Repair, Joint Replacement, Orthopedic Surgery Additional Past Surgical History / Comment(s): 01/18/19 incisional hernia repair- open with mesh, 12/11/17 CABG 4 vessel, 12/20/17 colectomy/ileostomy with reversal, R leg attempted bypasses with artificial artery which pt states were unsuccessful, L breast benign tumor removed, bilateral total knee arthroplasties, R rotator cuff repair, low back epidural injections, piccs-since removed. Past Anesthesia/Blood Transfusion Reactions: No Reported Reaction Additional Past Anesthesia/Blood Transfusion Reaction / Comm: Pt has recently received blood and also years ago received blood without reaction. Past Psychological History: Anxiety, Depression Smoking Status: Former smoker Past Alcohol Use History: None Reported Past Drug Use History: None Reported - Past Family History Mother Family Medical History: Cancer Additional Family Medical History / Comment(s): Uterine cancer. Father Family Medical History: Congestive Heart Failure (CHF) Medications and Allergies Home Medications Medication Instructions Recorded Confirmed Type DULoxetine HCL [Cymbalta] 60 mg PO HS 12/14/16 06/11/19 History Ergocalciferol (Vitamin D2) 50,000 unit PO COHEN 12/14/16 06/11/19 History [Vitamin D2] Amiodarone [Cordarone] 100 mg PO DAILY 03/02/18 06/11/19 History Latanoprost/Pf [Latanoprost 0.005% 1 drop BOTH EYES HS 03/02/18 06/11/19 History Eye Drop] Cilostazol [Pletal] 100 mg PO DAILY@0500 11/15/18 06/11/19 History Metoprolol Tartrate [Lopressor] 50 mg PO AC-BID@0800,1700 11/15/18 06/11/19 History metFORMIN HCL [Glucophage] 500 mg PO AC-BID@0800,1700 11/15/18 06/11/19 History L.acidoph,Paracasei, B.lactis 1 cap PO AC-BID@0800,1700 03/05/19 06/11/19 History [Probiotic] Levothyroxine Sodium [Synthroid] 88 mcg PO DAILY@0600 03/05/19 06/11/19 History predniSONE 10 mg PO DAILY 03/05/19 06/11/19 History Ferrous Sulfate [Iron (65 MG 325 mg PO AC-SUPPER 03/30/19 06/11/19 History Elemental)] Nystatin 100,000Unit/gm Cream 1 applic TOPICAL BID 03/30/19 06/11/19 History [Mycostatin Cream] Loperamide [Imodium] 2 mg PO BID PRN 04/17/19 06/11/19 History Potassium Chloride ER [K-Dur 20] 40 meq PO AC-SUPPER 04/17/19 06/11/19 History Acetaminophen Tab [Tylenol] 650 mg PO Q6HR PRN tab 04/22/19 06/11/19 Rx Pantoprazole [Protonix] 40 mg PO DAILY #15 tablet. 04/22/19 06/11/19 Rx Atorvastatin [Lipitor] 40 mg PO HS 06/01/19 06/11/19 History Losartan [Cozaar] 50 mg PO DAILY 06/01/19 06/11/19 History Apixaban [Eliquis] 5 mg PO BID 06/03/19 06/11/19 History oxyCODONE HCL [OxyCONTIN] 20 mg PO Q8H 06/03/19 06/11/19 History Cefuroxime Axetil [Ceftin] 500 mg PO BID #20 tab 06/05/19 06/11/19 Rx Furosemide [Lasix] 40 mg PO DAILY #0 06/05/19 06/11/19 Rx Gabapentin [Neurontin] 100 mg PO BID #6 cap 06/05/19 06/11/19 Rx Gabapentin [Neurontin] 300 mg PO HS #3 cap 06/05/19 06/11/19 Rx Spironolactone [Aldactone] 50 mg PO DAILY tab 06/05/19 06/11/19 Rx metroNIDAZOLE [Flagyl] 500 mg PO Q8HR #30 tab 06/05/19 06/11/19 Rx Insulin Aspart [NovoLOG Flexpen] 3 unit SQ QAM 06/11/19 06/11/19 History predniSONE See Taper PO DIRECTED 06/11/19 06/11/19 History Allergies Allergy/AdvReac Type Severity Reaction Status Date / Time morphine Allergy Intermediate Itching Verified 06/11/19 20:07 Surgical - Exam Vital Signs Temp Pulse Resp BP Pulse Ox 97.8 F 77 19 125/74 99 06/11/19 16:15 06/11/19 16:15 06/11/19 16:15 06/11/19 16:15 06/11/19 16:15 Results - Labs 06/13/19 06:19 06/13/19 06:19 Abnormal Lab Results - Last 24 Hours (Table) 06/11/19 06/11/19 06/11/19 Range/Units 19:40 19:40 19:40 WBC 17.9 H (3.8-10.6) k/uL Hgb 11.3 L (11.4-16.0) gm/dL MCV 79.4 L (80.0-100.0) fL MCH 24.2 L (25.0-35.0) pg MCHC 30.5 L (31.0-37.0) g/dL RDW 17.8 H (11.5-15.5) % Plt Count 481 H (150-450) k/uL Neutrophils # 14.6 H (1.3-7.7) k/uL APTT 18.4 L (22.0-30.0) sec Sodium 132 L (137-145) mmol/L Potassium 2.9 L (3.5-5.1) mmol/L Chloride 91 L (98-107) mmol/L Glucose 243 H (74-99) mg/dL Plasma Lactic Acid Frederick (0.7-2.0) mmol/L Magnesium 1.4 L (1.6-2.3) mg/dL Alkaline Phosphatase 191 H (38-126) U/L 06/11/19 06/11/19 Range/Units 19:40 23:48 WBC (3.8-10.6) k/uL Hgb (11.4-16.0) gm/dL MCV (80.0-100.0) fL MCH (25.0-35.0) pg MCHC (31.0-37.0) g/dL RDW (11.5-15.5) % Plt Count (150-450) k/uL Neutrophils # (1.3-7.7) k/uL APTT (22.0-30.0) sec Sodium (137-145) mmol/L Potassium (3.5-5.1) mmol/L Chloride (98-107) mmol/L Glucose (74-99) mg/dL Plasma Lactic Acid Frederick 3.4 H* 2.6 H* (0.7-2.0) mmol/L Magnesium (1.6-2.3) mg/dL Alkaline Phosphatase (38-126) U/L Diabetes panel 06/11/19 Range/Units 19:40 Sodium 132 L (137-145) mmol/L Potassium 2.9 L (3.5-5.1) mmol/L Chloride 91 L (98-107) mmol/L Carbon Dioxide 28 (22-30) mmol/L BUN 11 (7-17) mg/dL Creatinine 0.63 (0.52-1.04) mg/dL Glucose 243 H (74-99) mg/dL Calcium 9.7 (8.4-10.2) mg/dL AST 31 (14-36) U/L ALT 23 (4-34) U/L Alkaline Phosphatase 191 H (38-126) U/L Total Protein 6.6 (6.3-8.2) g/dL Albumin 4.0 (3.5-5.0) g/dL Thyroid panel 06/11/19 Range/Units 19:40 TSH 1.700 (0.465-4.680) mIU/L Calcium panel 06/11/19 Range/Units 19:40 Calcium 9.7 (8.4-10.2) mg/dL Ionized Calcium Adiel 4.8 (4.5-5.3) mg/dL Phosphorus 3.1 (2.5-4.5) mg/dL Albumin 4.0 (3.5-5.0) g/dL Pituitary panel 06/11/19 Range/Units 19:40 Sodium 132 L (137-145) mmol/L Potassium 2.9 L (3.5-5.1) mmol/L Chloride 91 L (98-107) mmol/L Carbon Dioxide 28 (22-30) mmol/L BUN 11 (7-17) mg/dL Creatinine 0.63 (0.52-1.04) mg/dL Glucose 243 H (74-99) mg/dL Calcium 9.7 (8.4-10.2) mg/dL TSH 1.700 (0.465-4.680) mIU/L Adrenal panel 06/11/19 Range/Units 19:40 Sodium 132 L (137-145) mmol/L Potassium 2.9 L (3.5-5.1) mmol/L Chloride 91 L (98-107) mmol/L Carbon Dioxide 28 (22-30) mmol/L BUN 11 (7-17) mg/dL Creatinine 0.63 (0.52-1.04) mg/dL Glucose 243 H (74-99) mg/dL Calcium 9.7 (8.4-10.2) mg/dL Total Bilirubin 0.4 (0.2-1.3) mg/dL AST 31 (14-36) U/L ALT 23 (4-34) U/L Alkaline Phosphatase 191 H (38-126) U/L Total Protein 6.6 (6.3-8.2) g/dL Albumin 4.0 (3.5-5.0) g/dL
[2019-06-13 16:36] LABS: Glucose,Whole Blood 331 mg/dL (75-99)
[2019-06-13] MEDS ORDERED: FLUCONAZOLE 100 MG TAB PO STA (17:02)
[2019-06-13] MEDS: FERROUS SULFATE 325 MG TAB PO SCH (17:41)
--- NOTE | 2019-06-13 18:12 | PN ---
PROGRESS NOTE DATE OF SERVICE: 06/13/2019 REASON FOR FOLLOWUP: Leukocytosis, possible UTI. INTERVAL HISTORY: The patient is currently afebrile. The patient has been breathing comfortably. The patient denies having any chest pain or shortness of breath or cough. No further nausea, vomiting, or any diarrhea. She is complaining of some vaginal drainage and yeast infection. PHYSICAL EXAMINATION: On examination, her blood pressure is 103/55 with a pulse of 73, temperature 97. She is 97% on room air. General description is an elderly female lying in bed in no distress. RESPIRATORY SYSTEM: Unlabored breathing. Clear to auscultation anteriorly. HEART: S1, S2. Regular rate and rhythm. ABDOMEN: Soft. No tenderness. LABS: Hemoglobin is 9.4, white count 10.4, BUN of 8, creatinine 0.65. UA is currently negative, though. DIAGNOSTIC IMPRESSION AND PLAN: Patient admitted to hospital with generalized not feeling well in this patient who did have an elevated white count on admission, possible dehydration. There was concern for possible UTI. Her urine is not significantly positive. Will keep the patient on Zosyn, as the patient's white count has normalized. She will get one dose of Diflucan for her vaginal yeast infection. Monitor clinical course closely. MMODL / IJN: [id number] /
[2019-06-13 21:01] LABS: Glucose,Whole Blood 353 mg/dL (75-99)
--- NOTE | 2019-06-13 23:04 | P.PN ---
Subjective Progress Note Date: 06/13/19 Principal diagnosis: Generalized weakness and lethargic. Rule out urinary tract infection Recent history of abdominal abscess status post surgery. Currently on wound VAC. This is a pleasant 74-year-old patient of Dr. Alcala. Chronic stable medical conditions include atrial fibrillation, coronary artery disease, diabetes, hyperlipidemia, hypertension, osteoarthritis, hypothyroid, peripheral arterial disease. December 2017 had a "coronary bypass, complicated by ischemic bowel resulting in the ostomy and a wound VAC. Patient subsequently had intra- abdominal abscess and required protracted course of antibiotics. March 2018 had an abscess and patient did have a MASTER drain in place for the same. December 2018 patient had the incisional hernia with mesh placed. By Dr. Montoya. Patient did undergo admission for significant drainage from MASTER drain. admitted on March 03 and discharged on March 13 and during that admission infected mesh was removed. Patient had a wound VAC placed. Patient was discharged on March 13 with 2 week course of IV daptomycin, IV Invanz, and Bactrim. Wound cultures had grown S maltophilia, VRE, staph epidermidis. Patient April 01 admitted with delirium. Dose of OxyContin was cut back. Since then patient was in [place] visiting her son in law and was admitted to the hospital after she became sick. Received antibiotics. Patient intubated. From May 31 through June 05. Admitted with sigmoid diverticulitis. And also adrenal insufficiency. Patient was discharged on 10 days of Ceftin and Flagyl. Patient now presents with feeling weak tired rundown. Yesterday he slept all day or night. Except for going to the bathroom. Denies any fever and chills. Having upper abdominal discomfort. Significant nausea. Patient continues to have a wound VAC. Patient did have some loose stools on Monday and Monday. No fever and chills. Appetite has been okay. Rundown. Patient started on antibiotics in the ER.. INVESTIGATIONS, reviewed in the clinical context: White count 7.9 hemoglobin 11.3 platelets 41 potassium 2.9 bun 11 creatinine 0.63 Lactic acid 3.4 Computed tomography scan of the abdomen and pelvis-not much different than previous computed tomography scan. 06/13/2019 Patient is currently lying in the bed comfortably. Awake alert and oriented 3. Patient says that she feels better. Wound VAC is in place for abdominal wound. No surrounding redness or tenderness noted. Patient has been afebrile. Currently being continued on IV antibiotic is now on Zosyn. Urinalysis and urine culture was ordered. ID and general surgery is following. Pro-calcitonin not elevated 0.09 Current medications reviewed. Objective - Vital Signs Vital signs: Vital Signs Temp 97.0 F L 06/13/19 12:00 Pulse 63 06/13/19 12:00 Resp 18 06/13/19 12:00 BP 103/55 06/13/19 12:00 Pulse Ox 97 06/13/19 12:00 Intake & Output 06/12/19 06/13/19 06/13/19 18:59 06:59 18:59 Intake Total 600 Output Total 300 Balance 300 Weight 81.6 kg Intake: Oral 600 Output: Urine 300 Straight 300 Other: Voiding Method Bedside Commode Bedside Commode Toilet # Voids 300 - Exam GENERAL: Laying in bed, tired EYES: Pupils equal. Conjunctiva pale HEENT: External appearance of nose and ears normal, oral cavity dry NECK: JVD unable to assess; masses not palpable. HEART: First and second heart sounds are normal; some edema. LUNGS: Respiratory rate normal; decreased breath sounds. ABDOMEN: Soft, wound VAC in place. Minimal tenderness, no guarding or rigidity, liver spleen not palpable, PSYCH: AAO 3, motor affect normal NEUROLOGICAL: Cranial nerves grossly intact, SENSATION grossly intact - Labs CBC & Chem 7: 06/13/19 06:19 06/13/19 06:19 Labs: Abnormal Lab Results - Last 24 Hours (Table) 06/13/19 06/13/19 06/13/19 Range/Units 06:19 06:19 12:20 RBC 3.79 L (3.80-5.40) m/uL Hgb 9.4 L D (11.4-16.0) gm/dL Hct 30.6 L (34.0-46.0) % MCH 24.7 L (25.0-35.0) pg MCHC 30.6 L (31.0-37.0) g/dL RDW 17.4 H (11.5-15.5) % Plt Count 539 H (150-450) k/uL Sodium 135 L (137-145) mmol/L Glucose 256 H (74-99) mg/dL POC Glucose (mg/dL) (75-99) mg/dL Urine Protein Trace H (Negative) Urine Glucose (UA) 4+ H (Negative) 06/13/19 Range/Units 16:34 RBC (3.80-5.40) m/uL Hgb (11.4-16.0) gm/dL Hct (34.0-46.0) % MCH (25.0-35.0) pg MCHC (31.0-37.0) g/dL RDW (11.5-15.5) % Plt Count (150-450) k/uL Sodium (137-145) mmol/L Glucose (74-99) mg/dL POC Glucose (mg/dL) 331 H (75-99) mg/dL Urine Protein (Negative) Urine Glucose (UA) (Negative) Microbiology - Last 24 Hours (Table) 06/11/19 23:48 Blood Culture - Preliminary Blood No Growth after 24 hours Assessment and Plan Assessment: -Generalized weakness and tiredness with elevated white count. Possible urinary tract infection versus reactive. Leukocytosis improved currently on IV Zosyn. -Recent history of intra-abdominal abscess from ischemic bowel with multiple episodes of the same, the wound VAC in place. Patient presents with feeling weak tired rundown very sleepy. No fever.Elevated white count. Recent admission with sigmoid diverticulitis. Empirically being treated for infection currently. -Severe hypokalemia could be contributing -Possible adrenal insufficiency due to that patient continue steroids for a while.. 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 added stress dose of IV hydrocortisone 50 mg 3 times a day. Patient be put on a soft diet. Other home medications reviewed. And reviewed. Potassium to be aggressively replaced. Consultations made to [facility] and Dr. Montoya from general surgery. Urinalysis and culture report. Care was discussed with the patient question answered. Follow labs. Time with Patient: Greater than 30
[2019-06-13] MEDS: LATANOPROST 0.005% OPHTH DROPS 2.5 ML BTL BOTH EYES SCH (23:10)
[2019-06-13] MEDS: GABAPENTIN 300 MG CAP PO SCH (23:10)
[2019-06-13] MEDS: DULoxetine HCL 60 MG CAPSULE.DR PO SCH (23:10)
[2019-06-13] MEDS: ATORVASTATIN 40 MG TAB PO SCH (23:10)
[2019-06-13 23:18] LABS: Glucose,Whole Blood 372 mg/dL (75-99)
[2019-06-14] MEDS: INSULIN ASPART (NovoLOG) 100 UNIT/ML VIAL SQ SCH ×5 (00:03→21:35)
[2019-06-14] MEDS: oxyCODONE ER 20 MG TAB.ER.12H PO SCH ×4 (00:04→23:50)
[2019-06-14 05:39] LABS: Glucose,Whole Blood 279 mg/dL (75-99)
[2019-06-14] MEDS: PANTOPRAZOLE 40 MG TABLET PO SCH (06:49)
[2019-06-14] MEDS: LEVOTHYROXINE 88 MCG TAB PO SCH (06:49)
[2019-06-14 07:05] LABS: Anisocytosis Slight; Basophils % (A) 0 %; Eosinophils % (A) 0 %; HCT 29.4 % (34.0-46.0); HGB 8.8 gm/dL (11.4-16.0); Hypochromasia Moderate; Lymphocytes # (A) 0.8 k/uL (1.0-4.8); Lymphocytes % (A) 8 %; MCV 79.9 fL (80.0-100.0); Mean Platelet Volume 7.5; Microcytosis Slight; Monocytes # (A) 0.5 k/uL (0-1.0); Monocytes % (A) 5 %; Neutrophils # (A) 9.2 k/uL (1.3-7.7); Neutrophils % (A) 85 %; Platelet Count 521 k/uL (150-450); RBC 3.68 m/uL (3.80-5.40); RDW 17.8 % (11.5-15.5); WBC 10.8 k/uL (3.8-10.6)
[2019-06-14 07:16] LABS: Calcium 9.3 mg/dL (8.4-10.2)
[2019-06-14] MEDS: HYDROCORTISONE SUCCINATE 100 MG/2 ML VIAL IV SCH ×3 (07:34→23:49)
[2019-06-14] MEDS: APIXABAN 5 MG TAB PO SCH ×2 (07:35→21:28)
[2019-06-14] MEDS: PIPERACILLIN-TAZOBACTAM 3.375 GM in SODIUM CHLORIDE 0.9% 100 ML IVPB SCH ×3 (07:35→23:49)
[2019-06-14] MEDS: METOPROLOL TARTRATE 50 MG TAB PO SCH ×2 (07:35→16:39)
[2019-06-14] MEDS: metFORMIN 500 MG TAB PO SCH ×2 (07:35→16:39)
[2019-06-14] MEDS: GABAPENTIN 100 MG CAP PO SCH ×2 (07:37→16:39)
[2019-06-14] MEDS: LOSARTAN 50 MG TAB PO SCH (07:37)
[2019-06-14] MEDS: SPIRONOLACTONE 25 MG TAB PO SCH (07:37)
[2019-06-14] MEDS: AMIODARONE 100 MG TAB PO SCH (07:57)
[2019-06-14] MEDS: NYSTATIN 100,000UNIT/GM CREAM 30 GM TUBE TOPICAL SCH ×2 (07:58→21:29)
--- NOTE | 2019-06-14 11:27 | P.PN ---
Progress Note - Text Progress Note Date: 06/14/19 The patient resting comfortably. She denies a significant abdominal pain. Her wound is clean. On exam her vital signs are stable. Her evidence soft. Resolving UTI. Patient will need to be evaluated Y she has recurring urinary tract infections. Currently no surgical intervention is planned. She'll continue local wound care.
[2019-06-14 11:38] LABS: Glucose,Whole Blood 278 mg/dL (75-99)
[2019-06-14] MEDS: FERROUS SULFATE 325 MG TAB PO SCH (16:40)
[2019-06-14 17:03] LABS: Glucose,Whole Blood 227 mg/dL (75-99)
[2019-06-14] MEDS: GABAPENTIN 300 MG CAP PO SCH (21:28)
[2019-06-14] MEDS: ATORVASTATIN 40 MG TAB PO SCH (21:28)
[2019-06-14] MEDS: DULoxetine HCL 60 MG CAPSULE.DR PO SCH (21:28)
[2019-06-14] MEDS: LATANOPROST 0.005% OPHTH DROPS 2.5 ML BTL BOTH EYES SCH (21:28)
[2019-06-14 21:51] LABS: Glucose,Whole Blood 277 mg/dL (75-99)
--- NOTE | 2019-06-14 22:34 | PN ---
PROGRESS NOTE DATE OF SERVICE: 06/14/2019 REASON FOR FOLLOWUP: 1. Leukocytosis. 2. Abdominal wound. INTERVAL HISTORY: The patient is currently afebrile. The patient is breathing comfortably. Denies having any chest pain or shortness of breath or cough. No nausea, no vomiting, no abdominal pain, and no diarrhea. PHYSICAL EXAMINATION: Blood pressure is 129/80 with a pulse of 75, temperature 97.9. She is 98% on room air. General description is an elderly female lying in bed in no distress. RESPIRATORY SYSTEM: Unlabored breathing. Clear to auscultation anteriorly. HEART: S1, S2. Regular rate and rhythm. ABDOMEN: Soft. Abdominal wound looks clean, with no slough tissue. EXTREMITIES: No edema of the feet. LABS: Hemoglobin is 8.8, white count 10.9. BUN of 11, creatinine 0.79. Blood cultures have been negative. DIAGNOSTIC IMPRESSION AND PLAN: 1. Patient presented to hospital with generalized weakness, not feeling well, in this patient who did have an elevated white count but no significant fever. The patient did have a CT scan of the abdomen and pelvis that was negative for any abscess or diverticulitis. UA has been negative. Abdominal wound is clean. The patient is responding to Zosyn, but no definite clinical focus of infection. Will continue the Zosyn for another 24 hours, hopefully switching her to oral, and monitor the patient closely. 2. Abdominal wound, which looks clean. Local care will continue with the wound V.A.C. Continue with supportive care. MMODL / IJN: [id number] /
[2019-06-14] MEDS: SODIUM CHLORIDE 0.9% 1,000 ML IV SCH (23:56)
[2019-06-15] MEDS: LEVOTHYROXINE 88 MCG TAB PO SCH (05:49)
[2019-06-15] MEDS: CILOSTAZOL 100 MG TAB PO SCH (05:49)
[2019-06-15 06:55] LABS: Glucose,Whole Blood 226 mg/dL (75-99)
[2019-06-15] MEDS: INSULIN ASPART (NovoLOG) 100 UNIT/ML VIAL SQ SCH ×4 (07:23→21:10)
[2019-06-15] MEDS: PIPERACILLIN-TAZOBACTAM 3.375 GM in SODIUM CHLORIDE 0.9% 100 ML IVPB SCH (07:24)
[2019-06-15] MEDS: metFORMIN 500 MG TAB PO SCH ×2 (07:24→16:54)
[2019-06-15] MEDS: PANTOPRAZOLE 40 MG TABLET PO SCH (07:24)
[2019-06-15] MEDS: HYDROCORTISONE SUCCINATE 100 MG/2 ML VIAL IV SCH ×3 (07:24→23:32)
[2019-06-15] MEDS: oxyCODONE ER 20 MG TAB.ER.12H PO SCH ×3 (09:02→23:32)
[2019-06-15] MEDS: SPIRONOLACTONE 25 MG TAB PO SCH (09:02)
[2019-06-15] MEDS: LOSARTAN 50 MG TAB PO SCH (09:02)
[2019-06-15] MEDS: METOPROLOL TARTRATE 50 MG TAB PO SCH ×2 (09:02→16:51)
[2019-06-15] MEDS: APIXABAN 5 MG TAB PO SCH ×2 (09:03→21:10)
[2019-06-15] MEDS: AMIODARONE 100 MG TAB PO SCH (09:03)
[2019-06-15] MEDS: GABAPENTIN 100 MG CAP PO SCH ×2 (09:03→16:54)
[2019-06-15] MEDS: NYSTATIN 100,000UNIT/GM CREAM 30 GM TUBE TOPICAL SCH ×2 (09:04→21:17)
[2019-06-15 11:18] LABS: Glucose,Whole Blood 284 mg/dL (75-99)
[2019-06-15 16:51] LABS: Glucose,Whole Blood 211 mg/dL (75-99)
[2019-06-15] MEDS: FERROUS SULFATE 325 MG TAB PO SCH (16:53)
[2019-06-15 21:05] LABS: Glucose,Whole Blood 233 mg/dL (75-99)
[2019-06-15] MEDS: GABAPENTIN 300 MG CAP PO SCH (21:10)
[2019-06-15] MEDS: ATORVASTATIN 40 MG TAB PO SCH (21:10)
[2019-06-15] MEDS: AMOXIC-POT CLAV 875-125MG 1 EACH TAB PO SCH (21:10)
[2019-06-15] MEDS: DULoxetine HCL 60 MG CAPSULE.DR PO SCH (21:10)
[2019-06-15] MEDS: LATANOPROST 0.005% OPHTH DROPS 2.5 ML BTL BOTH EYES SCH (21:11)
[2019-06-15] MEDS: SODIUM CHLORIDE 0.9% 1,000 ML IV SCH (21:17)
[2019-06-16] MEDS: LEVOTHYROXINE 88 MCG TAB PO SCH (05:13)
[2019-06-16] MEDS: CILOSTAZOL 100 MG TAB PO SCH (05:13)
--- NOTE | 2019-06-16 05:16 | PN ---
PROGRESS NOTE DATE OF SERVICE: 06/15/2019 REASON FOR FOLLOWUP: 1. Leukocytosis. 2. Abdominal wound. INTERVAL HISTORY: The patient is currently afebrile. She mention intense level of lightheadedness, not been feeling that well today. Denies having any headache. No chest pain, shortness of breath or cough. No abdominal pain. No nausea, vomiting. No diarrhea. PHYSICAL EXAMINATION: Blood pressure 112/58 with a pulse of 77, temperature 98.5, she is 97% on room air. General description is an elderly female lying in bed in no distress. Respiratory system: Unlabored breathing, clear to auscultation anteriorly. Heart S1, S2. Regular rate and rhythm. Abdomen soft, no tenderness. Extremities: No edema of the feet. LABS: Blood culture has been negative. No CBC was done today. DIAGNOSTIC IMPRESSION AND PLAN: 1. Patient admitted to the hospital with acute illness and this patient did have evidence of leukocytosis. So far workup has been negative. CT abdomen and pelvis did not show any abscess. Urine has been negative. We will switch her over to oral Augmentin. Repeat a CBC, BMP tomorrow. 2. abdominal wound. Local care to continue with the wound VAC. Continue supportive care. MMODL / IJN: [id number] /
[2019-06-16 06:46] LABS: Glucose,Whole Blood 202 mg/dL (75-99)
[2019-06-16 07:04] LABS: Anisocytosis Slight; Basophils # (A) 0.1 k/uL (0-0.2); Basophils % (A) 1 %; Eosinophils # (A) 0.1 k/uL (0-0.7); Eosinophils % (A) 1 %; HCT 30.1 % (34.0-46.0); Hypochromasia Marked; Lymphocytes # (A) 1.2 k/uL (1.0-4.8); Lymphocytes % (A) 8 %; MCH 24.4 pg (25.0-35.0); MCV 81.4 fL (80.0-100.0); Mean Platelet Volume 7.9; Microcytosis Slight; Monocytes # (A) 0.5 k/uL (0-1.0); Monocytes % (A) 3 %; Neutrophils # (A) 12.1 k/uL (1.3-7.7); Neutrophils % (A) 86 %; Platelet Count 621 k/uL (150-450); RDW 17.4 % (11.5-15.5); WBC 14.1 k/uL (3.8-10.6)
[2019-06-16 07:27] LABS: African American GFR (CKD) >90 (>60 ml/min/1.73 sqM); Anion Gap 8 mmol/L; Blood Urea Nitrogen 12 mg/dL (7-17); Calcium 9.7 mg/dL (8.4-10.2); Carbon Dioxide 25 mmol/L (22-30); Chloride 104 mmol/L (98-107); Glucose 187 mg/dL (74-99); Non-African American GFR(CKD) 82 (>60 ml/min/1.73 sqM); Potassium 3.8 mmol/L (3.5-5.1); Sodium 137 mmol/L (137-145)
[2019-06-16] MEDS: INSULIN ASPART (NovoLOG) 100 UNIT/ML VIAL SQ SCH ×4 (07:27→20:26)
[2019-06-16] MEDS: HYDROCORTISONE SUCCINATE 100 MG/2 ML VIAL IV SCH ×3 (07:27→23:19)
[2019-06-16] MEDS: GABAPENTIN 100 MG CAP PO SCH ×2 (07:28→15:28)
[2019-06-16] MEDS: LOSARTAN 50 MG TAB PO SCH (07:28)
[2019-06-16] MEDS: METOPROLOL TARTRATE 50 MG TAB PO SCH ×2 (07:28→17:30)
[2019-06-16] MEDS: oxyCODONE ER 20 MG TAB.ER.12H PO SCH ×3 (07:28→23:19)
[2019-06-16] MEDS: SPIRONOLACTONE 25 MG TAB PO SCH (07:28)
[2019-06-16] MEDS: AMIODARONE 100 MG TAB PO SCH (07:28)
[2019-06-16] MEDS: PANTOPRAZOLE 40 MG TABLET PO SCH (07:28)
[2019-06-16] MEDS: APIXABAN 5 MG TAB PO SCH ×2 (07:29→19:31)
[2019-06-16] MEDS: AMOXIC-POT CLAV 875-125MG 1 EACH TAB PO SCH (07:29)
[2019-06-16] MEDS: metFORMIN 500 MG TAB PO SCH (07:29)
[2019-06-16 08:04] LABS: C Reactive Protein <5.0 mg/L (<10.0)
[2019-06-16] MEDS ORDERED: ERGOCALCIFEROL 50,000 UNIT CAP PO SCH (09:00)
[2019-06-16] MEDS: NYSTATIN 100,000UNIT/GM CREAM 30 GM TUBE TOPICAL SCH ×2 (10:37→19:34)
[2019-06-16] MEDS ORDERED: PIPERACILLIN-TAZOBACTAM 3.375 GM in SODIUM CHLORIDE 0.9% 100 ML IVPB SCH (11:00)
[2019-06-16 11:36] LABS: Glucose,Whole Blood 295 mg/dL (75-99)
[2019-06-16 17:02] LABS: Glucose,Whole Blood 228 mg/dL (75-99)
[2019-06-16] MEDS: FERROUS SULFATE 325 MG TAB PO SCH (17:30)
[2019-06-16] MEDS: ATORVASTATIN 40 MG TAB PO SCH (19:30)
[2019-06-16] MEDS: LATANOPROST 0.005% OPHTH DROPS 2.5 ML BTL BOTH EYES SCH (19:30)
[2019-06-16] MEDS: DULoxetine HCL 60 MG CAPSULE.DR PO SCH (19:30)
[2019-06-16] MEDS: PIPERACILLIN-TAZOBACTAM 3.375 GM in SODIUM CHLORIDE 0.9% 100 ML IVPB SCH (19:30)
[2019-06-16] MEDS: GABAPENTIN 300 MG CAP PO SCH (19:30)
[2019-06-16] MEDS: SODIUM CHLORIDE 0.9% 1,000 ML IV SCH (19:33)
[2019-06-16 20:02] LABS: Glucose,Whole Blood 293 mg/dL (75-99)
--- NOTE | 2019-06-16 22:37 | PN ---
PROGRESS NOTE DATE OF SERVICE: 06/16/2019 REASON FOR FOLLOWUP: Leukocytosis, possible abdominal source. INTERVAL HISTORY: The patient was seen on rounds this afternoon. Patient is afebrile, however, overall the patient states she is not feeling as good, but denies having any headache. No chest pain, shortness or cough. No nausea, no vomiting. No abdominal pain. No diarrhea. No urinary symptoms. PHYSICAL EXAMINATION: Blood pressure 122/79 with a pulse of 70, temperature is 97.7, she is 98% on room air. General description is an elderly female lying in bed in no distress. Respiratory system: Unlabored breathing, clear to auscultation anteriorly. Heart S1, S2. Regular rate and rhythm. Abdomen soft, no tenderness. Abdominal wound is currently covered with a wound VAC. Extremities: No edema of the feet. LABS: Hemoglobin 9, white count 14.1, BUN of 12, creatinine 0.74. Blood culture has been negative. DIAGNOSTIC IMPRESSION AND PLAN: Patient with leukocytosis, concern for possible abdominal source though initial CT abdomen and pelvis did not show any abnormality. However, currently, the patient did not have any other clinical focus. Urine was negative. Abdominal wound looks clean. We will repeat a CT abdomen and pelvis with contrast to better rule out any intra- abdominal pathology. We will restart her back on Zosyn as white count has shown an upward trend and discontinue the Augmentin. Family at the bedside. They had multiple questions, those were answered in layman's terms. MMODL / IJN: [id number] /
--- NOTE | 2019-06-16 23:54 | P.PN ---
Subjective Progress Note Date: 06/14/19 Principal diagnosis: Generalized weakness and lethargic. Rule out urinary tract infection Recent history of abdominal abscess status post surgery. Currently on wound VAC. This is a pleasant 74-year-old patient of Dr. Alcala. Chronic stable medical conditions include atrial fibrillation, coronary artery disease, diabetes, hyperlipidemia, hypertension, osteoarthritis, hypothyroid, peripheral arterial disease. December 2017 had a "coronary bypass, complicated by ischemic bowel resulting in the ostomy and a wound VAC. Patient subsequently had intra- abdominal abscess and required protracted course of antibiotics. March 2018 had an abscess and patient did have a MASTER drain in place for the same. December 2018 patient had the incisional hernia with mesh placed. By Dr. Montoya. Patient did undergo admission for significant drainage from MASTER drain. admitted on March 03 and discharged on March 13 and during that admission infected mesh was removed. Patient had a wound VAC placed. Patient was discharged on March 13 with 2 week course of IV daptomycin, IV Invanz, and Bactrim. Wound cultures had grown S maltophilia, VRE, staph epidermidis. Patient April 01 admitted with delirium. Dose of OxyContin was cut back. Since then patient was in [place] visiting her son in law and was admitted to the hospital after she became sick. Received antibiotics. Patient intubated. From May 31 through June 05. Admitted with sigmoid diverticulitis. And also adrenal insufficiency. Patient was discharged on 10 days of Ceftin and Flagyl. Patient now presents with feeling weak tired rundown. Yesterday he slept all day or night. Except for going to the bathroom. Denies any fever and chills. Having upper abdominal discomfort. Significant nausea. Patient continues to have a wound VAC. Patient did have some loose stools on Monday and Monday. No fever and chills. Appetite has been okay. Rundown. Patient started on antibiotics in the ER.. INVESTIGATIONS, reviewed in the clinical context: White count 7.9 hemoglobin 11.3 platelets 41 potassium 2.9 bun 11 creatinine 0.63 Lactic acid 3.4 Computed tomography scan of the abdomen and pelvis-not much different than previous computed tomography scan. 06/13/2019 Patient is currently lying in the bed comfortably. Awake alert and oriented 3. Patient says that she feels better. Wound VAC is in place for abdominal wound. No surrounding redness or tenderness noted. Patient has been afebrile. Currently being continued on IV antibiotic is now on Zosyn. Urinalysis and urine culture was ordered. ID and general surgery is following. Pro-calcitonin not elevated 0.09 06/14/2019 Patient is currently lying in the bed comfortably. Awake alert and oriented 3. Abdominal wound is with wound VAC and looks clean. Patient has been afebrile. Urinalysis is negative for infection. Follow-up urine culture report. Patient is currently on anti-MRSA form of Zosyn. ID is on board and general surgery as well. Denied any complaints of abdominal pain. No nausea vomiting. Tolerating oral diet. No fever no chills. Current medications reviewed. Objective - Vital Signs Vital signs: Vital Signs Temp 98.2 F 06/14/19 19:28 Pulse 75 06/14/19 19:28 Resp 15 06/14/19 19:28 BP 127/70 06/14/19 19:28 Pulse Ox 97 06/14/19 19:28 Intake & Output 06/14/19 06/14/19 06/15/19 06:59 18:59 06:59 Intake Total 1060 160 Balance 1060 160 Weight 76.5 kg 76.5 kg Intake: Intake, IV Titration 160 160 Amount Sodium Chloride 0.9% 1, 160 160 000 ml @ 20 mls/hr IV . Q24H [facility] Rx#:[id number] Oral 900 Other: Voiding Method Toilet Toilet # Voids 2 # Bowel Movements 1 - Exam GENERAL: Laying in bed, tired EYES: Pupils equal. Conjunctiva pale HEENT: External appearance of nose and ears normal, oral cavity dry NECK: JVD unable to assess; masses not palpable. HEART: First and second heart sounds are normal; some edema. LUNGS: Respiratory rate normal; decreased breath sounds. ABDOMEN: Soft, wound VAC in place. Minimal tenderness, no guarding or rigidity, liver spleen not palpable, PSYCH: AAO 3, motor affect normal NEUROLOGICAL: Cranial nerves grossly intact, SENSATION grossly intact - Labs CBC & Chem 7: 06/16/19 05:53 06/16/19 05:53 Labs: Abnormal Lab Results - Last 24 Hours (Table) 06/13/19 06/14/19 06/14/19 Range/Units 23:16 05:37 06:41 WBC 10.8 H (3.8-10.6) k/uL RBC 3.68 L (3.80-5.40) m/uL Hgb 8.8 L (11.4-16.0) gm/dL Hct 29.4 L (34.0-46.0) % MCV 79.9 L (80.0-100.0) fL MCH 24.0 L (25.0-35.0) pg MCHC 30.0 L (31.0-37.0) g/dL RDW 17.8 H (11.5-15.5) % Plt Count 521 H (150-450) k/uL Neutrophils # 9.2 H (1.3-7.7) k/uL Lymphocytes # 0.8 L (1.0-4.8) k/uL Sodium (137-145) mmol/L Glucose (74-99) mg/dL POC Glucose (mg/dL) 372 H 279 H (75-99) mg/dL 06/14/19 06/14/19 06/14/19 Range/Units 06:41 11:35 16:58 WBC (3.8-10.6) k/uL RBC (3.80-5.40) m/uL Hgb (11.4-16.0) gm/dL Hct (34.0-46.0) % MCV (80.0-100.0) fL MCH (25.0-35.0) pg MCHC (31.0-37.0) g/dL RDW (11.5-15.5) % Plt Count (150-450) k/uL Neutrophils # (1.3-7.7) k/uL Lymphocytes # (1.0-4.8) k/uL Sodium 135 L (137-145) mmol/L Glucose 228 H (74-99) mg/dL POC Glucose (mg/dL) 278 H 227 H (75-99) mg/dL 06/14/19 Range/Units 21:31 WBC (3.8-10.6) k/uL RBC (3.80-5.40) m/uL Hgb (11.4-16.0) gm/dL Hct (34.0-46.0) % MCV (80.0-100.0) fL MCH (25.0-35.0) pg MCHC (31.0-37.0) g/dL RDW (11.5-15.5) % Plt Count (150-450) k/uL Neutrophils # (1.3-7.7) k/uL Lymphocytes # (1.0-4.8) k/uL Sodium (137-145) mmol/L Glucose (74-99) mg/dL POC Glucose (mg/dL) 277 H (75-99) mg/dL Microbiology - Last 24 Hours (Table) 06/11/19 23:48 Blood Culture - Preliminary Blood No Growth after 48 hours Assessment and Plan Assessment: -Generalized weakness and tiredness with elevated white count. Possible urinary tract infection versus reactive. Leukocytosis improved. currently on IV Zosyn. -Recent history of intra-abdominal abscess from ischemic bowel with multiple episodes of the same, the wound VAC in place. Patient presents with feeling weak tired rundown very sleepy. No fever.Elevated white count. Recent admission with sigmoid diverticulitis. Empirically being treated for infection currently. -Severe hypokalemia could be contributing -Possible adrenal insufficiency due to that patient continue steroids for a while.. 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 added stress dose of IV hydrocortisone 50 mg 3 times a day. Patient be put on a soft diet. Other home medications reviewed. And reviewed. Potassium to be aggressively replaced. Consultations made to ID and Dr. Montoya from general surgery. Urinalysis and culture report. Care was discussed with the patient question answered. Follow labs. Time with Patient: Greater than 30
--- NOTE | 2019-06-16 23:57 | P.PN ---
Subjective Progress Note Date: 06/15/19 Principal diagnosis: Generalized weakness and lethargic. Rule out urinary tract infection Recent history of abdominal abscess status post surgery. Currently on wound VAC. This is a pleasant 74-year-old patient of Dr. Alcala. Chronic stable medical conditions include atrial fibrillation, coronary artery disease, diabetes, hyperlipidemia, hypertension, osteoarthritis, hypothyroid, peripheral arterial disease. December 2017 had a "coronary bypass, complicated by ischemic bowel resulting in the ostomy and a wound VAC. Patient subsequently had intra- abdominal abscess and required protracted course of antibiotics. March 2018 had an abscess and patient did have a MASTER drain in place for the same. December 2018 patient had the incisional hernia with mesh placed. By Dr. Montoya. Patient did undergo admission for significant drainage from MASTER drain. admitted on March 03 and discharged on March 13 and during that admission infected mesh was removed. Patient had a wound VAC placed. Patient was discharged on March 13 with 2 week course of IV daptomycin, IV Invanz, and Bactrim. Wound cultures had grown S maltophilia, VRE, staph epidermidis. Patient April 01 admitted with delirium. Dose of OxyContin was cut back. Since then patient was in [place] visiting her son in law and was admitted to the hospital after she became sick. Received antibiotics. Patient intubated. From May 31 through June 05. Admitted with sigmoid diverticulitis. And also adrenal insufficiency. Patient was discharged on 10 days of Ceftin and Flagyl. Patient now presents with feeling weak tired rundown. Yesterday he slept all day or night. Except for going to the bathroom. Denies any fever and chills. Having upper abdominal discomfort. Significant nausea. Patient continues to have a wound VAC. Patient did have some loose stools on Monday and Monday. No fever and chills. Appetite has been okay. Rundown. Patient started on antibiotics in the ER.. INVESTIGATIONS, reviewed in the clinical context: White count 7.9 hemoglobin 11.3 platelets 41 potassium 2.9 bun 11 creatinine 0.63 Lactic acid 3.4 Computed tomography scan of the abdomen and pelvis-not much different than previous computed tomography scan. 06/13/2019 Patient is currently lying in the bed comfortably. Awake alert and oriented 3. Patient says that she feels better. Wound VAC is in place for abdominal wound. No surrounding redness or tenderness noted. Patient has been afebrile. Currently being continued on IV antibiotic is now on Zosyn. Urinalysis and urine culture was ordered. ID and general surgery is following. Pro-calcitonin not elevated 0.09 06/14/2019 Patient is currently lying in the bed comfortably. Awake alert and oriented 3. Abdominal wound is with wound VAC and looks clean. Patient has been afebrile. Urinalysis is negative for infection. Follow-up urine culture report. Patient is currently on antibiotics form of Zosyn. ID is on board and general surgery as well. Denied any complaints of abdominal pain. No nausea vomiting. Tolerating oral diet. No fever no chills. 06/15/2019 Patient is currently denied any complaints of abdominal pain. Abdominal wound is clean and wound VAC in place. Urinalysis showed no evidence of infection. Patient is improving clinically. Tolerating oral diet. Patient has been afebrile. Respiratory well to Zosyn. ID is following. No chest pain or shortness of breath. No cough or sputum production. Able to ambulate to the bathroom. Current medications reviewed. Objective - Vital Signs Vital signs: Vital Signs Temp 98.5 F 06/15/19 19:47 Pulse 77 06/15/19 19:47 Resp 16 06/15/19 19:47 BP 112/58 06/15/19 19:47 Pulse Ox 97 06/15/19 19:47 Intake & Output 06/15/19 06/15/19 06/16/19 06:59 18:59 06:59 Intake Total 1040 Balance 1040 Intake: Intake, IV Titration 240 Amount Piperacillin-Tazobactam 3 100 .375 gm In Sodium Chloride 0.9% 100 ml @ 25 mls/hr IVPB Q8HR [facility] Rx# :[id number] Sodium Chloride 0.9% 1, 140 000 ml @ 20 mls/hr IV . Q24H [facility] Rx#:[id number] Oral 800 Other: Voiding Method Toilet # Voids 1 # Bowel Movements 1 - Exam GENERAL: Laying in bed, tired EYES: Pupils equal. Conjunctiva pale HEENT: External appearance of nose and ears normal, oral cavity dry NECK: JVD unable to assess; masses not palpable. HEART: First and second heart sounds are normal; some edema. LUNGS: Respiratory rate normal; decreased breath sounds. ABDOMEN: Soft, wound VAC in place. Minimal tenderness, no guarding or rigidity, liver spleen not palpable, PSYCH: AAO 3, motor affect normal NEUROLOGICAL: Cranial nerves grossly intact, SENSATION grossly intact - Labs CBC & Chem 7: 06/16/19 05:53 06/16/19 05:53 Labs: Abnormal Lab Results - Last 24 Hours (Table) 06/14/19 06/15/19 06/15/19 Range/Units 21:31 06:53 11:17 POC Glucose (mg/dL) 277 H 226 H 284 H (75-99) mg/dL 06/15/19 06/15/19 Range/Units 16:47 21:03 POC Glucose (mg/dL) 211 H 233 H (75-99) mg/dL Microbiology - Last 24 Hours (Table) 06/11/19 23:48 Blood Culture - Preliminary Blood No Growth after 72 hours Assessment and Plan Assessment: -Generalized weakness and tiredness with elevated white count. Possible urinary tract infection versus reactive. Leukocytosis improved. currently on IV Zosyn. -Recent history of intra-abdominal abscess from ischemic bowel with multiple episodes of the same, the wound VAC in place. Patient presents with feeling weak tired rundown very sleepy. No fever.Elevated white count. Recent admission with sigmoid diverticulitis. Empirically being treated for infection currently. -Severe hypokalemia could be contributing -Possible adrenal insufficiency due to that patient continue steroids for a while.. 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 added stress dose of IV hydrocortisone 50 mg 3 times a day. Patient be put on a soft diet. Other home medications reviewed. And reviewed. Potassium to be aggressively replaced. Consultations made to ID and Dr. Montoya from general surgery. Urinalysis is negative for infection.. Care was discussed with the patient question answered. Follow labs. Time with Patient: Greater than 30
--- NOTE | 2019-06-17 | P.PN ---
Subjective Progress Note Date: 06/16/19 Principal diagnosis: Generalized weakness and lethargic. Rule out urinary tract infection Recent history of abdominal abscess status post surgery. Currently on wound VAC. This is a pleasant 74-year-old patient of Dr. Alcala. Chronic stable medical conditions include atrial fibrillation, coronary artery disease, diabetes, hyperlipidemia, hypertension, osteoarthritis, hypothyroid, peripheral arterial disease. December 2017 had a "coronary bypass, complicated by ischemic bowel resulting in the ostomy and a wound VAC. Patient subsequently had intra- abdominal abscess and required protracted course of antibiotics. March 2018 had an abscess and patient did have a MASTER drain in place for the same. December 2018 patient had the incisional hernia with mesh placed. By Dr. Montoya. Patient did undergo admission for significant drainage from MASTER drain. admitted on March 03 and discharged on March 13 and during that admission infected mesh was removed. Patient had a wound VAC placed. Patient was discharged on March 13 with 2 week course of IV daptomycin, IV Invanz, and Bactrim. Wound cultures had grown S maltophilia, VRE, staph epidermidis. Patient April 01 admitted with delirium. Dose of OxyContin was cut back. Since then patient was in [place] visiting her son in law and was admitted to the hospital after she became sick. Received antibiotics. Patient intubated. From May 31 through June 05. Admitted with sigmoid diverticulitis. And also adrenal insufficiency. Patient was discharged on 10 days of Ceftin and Flagyl. Patient now presents with feeling weak tired rundown. Yesterday he slept all day or night. Except for going to the bathroom. Denies any fever and chills. Having upper abdominal discomfort. Significant nausea. Patient continues to have a wound VAC. Patient did have some loose stools on Monday and Monday. No fever and chills. Appetite has been okay. Rundown. Patient started on antibiotics in the ER.. INVESTIGATIONS, reviewed in the clinical context: White count 7.9 hemoglobin 11.3 platelets 41 potassium 2.9 bun 11 creatinine 0.63 Lactic acid 3.4 Computed tomography scan of the abdomen and pelvis-not much different than previous computed tomography scan. 06/13/2019 Patient is currently lying in the bed comfortably. Awake alert and oriented 3. Patient says that she feels better. Wound VAC is in place for abdominal wound. No surrounding redness or tenderness noted. Patient has been afebrile. Currently being continued on IV antibiotic is now on Zosyn. Urinalysis and urine culture was ordered. ID and general surgery is following. Pro-calcitonin not elevated 0.09 06/14/2019 Patient is currently lying in the bed comfortably. Awake alert and oriented 3. Abdominal wound is with wound VAC and looks clean. Patient has been afebrile. Urinalysis is negative for infection. Follow-up urine culture report. Patient is currently on antibiotics form of Zosyn. ID is on board and general surgery as well. Denied any complaints of abdominal pain. No nausea vomiting. Tolerating oral diet. No fever no chills. 06/15/2019 Patient is currently denied any complaints of abdominal pain. Abdominal wound is clean and wound VAC in place. Urinalysis showed no evidence of infection. Patient is improving clinically. Tolerating oral diet. Patient has been afebrile. Respiratory well to Zosyn. ID is following. No chest pain or shortness of breath. No cough or sputum production. Able to ambulate to the bathroom. 06/16/2019 Patient is comfortable on the bed. Tolerating heart healthy diet. Denied any complaints of abdominal pain. No nausea vomiting. Patient did have sweats of diarrhea. Currently on antibiotics in the form of Zosyn. Patient did have mild leukocytosis with WBC count 14. Patient is also on hydrocortisone 50 mg every 8, was started as a stress dose. We will reduce to 25 mg every 8 and gradually tapered down. Patient does have hyperglycemia likely due to steroids. Continued on insulin sliding scale and follow. Abdominal wound is clean. Wound VAC in place. ID is planning for repeat CT abdomen to rule out any abdominal abscess. Patient has been afebrile. Blood pressure is stable. General surgery is following. Current medications reviewed. Objective - Vital Signs Vital signs: Vital Signs Temp 98.6 F 06/16/19 15:00 Pulse 86 06/16/19 15:00 Resp 17 06/16/19 15:00 BP 158/74 06/16/19 15:00 Pulse Ox 94 L 06/16/19 15:00 Intake & Output 06/15/19 06/16/19 06/16/19 18:59 06:59 18:59 Intake Total 1040 900 Balance 1040 900 Intake: Intake, IV Titration 240 100 Amount Piperacillin-Tazobactam 3 100 .375 gm In Sodium Chloride 0.9% 100 ml @ 25 mls/hr IVPB Q8HR [facility] Rx# :[id number] Piperacillin-Tazobactam 3 100 .375 gm In Sodium Chloride 0.9% 100 ml @ 25 mls/hr IVPB Q8HR [facility] Rx# :[id number] Sodium Chloride 0.9% 1, 140 000 ml @ 20 mls/hr IV . Q24H [facility] Rx#:[id number] Oral 800 800 Other: Voiding Method Toilet Toilet Toilet Diaper Diaper # Voids 1 1 # Bowel Movements 1 - Exam GENERAL: Laying in bed, tired EYES: Pupils equal. Conjunctiva pale HEENT: External appearance of nose and ears normal, oral cavity dry NECK: JVD unable to assess; masses not palpable. HEART: First and second heart sounds are normal; some edema. LUNGS: Respiratory rate normal; decreased breath sounds. ABDOMEN: Soft, wound VAC in place. Minimal tenderness, no guarding or rigidity, liver spleen not palpable, PSYCH: AAO 3, motor affect normal NEUROLOGICAL: Cranial nerves grossly intact, SENSATION grossly intact - Labs CBC & Chem 7: 06/16/19 05:53 06/16/19 05:53 Labs: Abnormal Lab Results - Last 24 Hours (Table) 06/15/19 06/16/19 06/16/19 Range/Units 21:03 05:53 05:53 WBC 14.1 H (3.8-10.6) k/uL RBC 3.70 L (3.80-5.40) m/uL Hgb 9.0 L (11.4-16.0) gm/dL Hct 30.1 L (34.0-46.0) % MCH 24.4 L (25.0-35.0) pg MCHC 30.0 L (31.0-37.0) g/dL RDW 17.4 H (11.5-15.5) % Plt Count 621 H (150-450) k/uL Neutrophils # 12.1 H (1.3-7.7) k/uL Glucose 187 H (74-99) mg/dL POC Glucose (mg/dL) 233 H (75-99) mg/dL 06/16/19 06/16/19 06/16/19 Range/Units 06:45 11:35 17:00 WBC (3.8-10.6) k/uL RBC (3.80-5.40) m/uL Hgb (11.4-16.0) gm/dL Hct (34.0-46.0) % MCH (25.0-35.0) pg MCHC (31.0-37.0) g/dL RDW (11.5-15.5) % Plt Count (150-450) k/uL Neutrophils # (1.3-7.7) k/uL Glucose (74-99) mg/dL POC Glucose (mg/dL) 202 H 295 H 228 H (75-99) mg/dL Microbiology - Last 24 Hours (Table) 06/11/19 23:48 Blood Culture - Preliminary Blood No Growth after 96 hours Assessment and Plan Assessment: -Generalized weakness and tiredness with elevated white count. Possible urinary tract infection versus reactive. Leukocytosis improved. currently on IV Zosyn. -Recent history of intra-abdominal abscess from ischemic bowel with multiple episodes of the same, the wound VAC in place. Patient presents with feeling weak tired rundown very sleepy. No fever. Elevated white count. Recent admission with sigmoid diverticulitis. Empirically being treated for infection currently. -Severe hypokalemia . Improved -Possible adrenal insufficiency due to that patient continue steroids for a w hile.. 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 added stress dose of IV hydrocortisone 50-->25 mg 3 times a day. Patient is tolerating heart healthy diet. Other home medications reviewed. Potassium to be aggressively replaced. Followed by ID and Dr. Montoya from general surgery. Urinalysis is negative for infection.. Care was discussed with the patient question answered. Follow labs. Time with Patient: Greater than 30
[2019-06-17] MEDS: HYDROCORTISONE SUCCINATE 100 MG/2 ML VIAL IV SCH ×3 (00:56→16:19)
[2019-06-17] MEDS: LEVOTHYROXINE 88 MCG TAB PO SCH (05:11)
[2019-06-17] MEDS: CILOSTAZOL 100 MG TAB PO SCH (05:11)
[2019-06-17] MEDS: PIPERACILLIN-TAZOBACTAM 3.375 GM in SODIUM CHLORIDE 0.9% 100 ML IVPB SCH ×3 (05:11→21:07)
[2019-06-17 07:30] LABS: Glucose,Whole Blood 213 mg/dL (75-99)
[2019-06-17] MEDS: PANTOPRAZOLE 40 MG TABLET PO SCH (07:42)
[2019-06-17] MEDS: GABAPENTIN 100 MG CAP PO SCH ×2 (07:42→16:20)
[2019-06-17] MEDS: SPIRONOLACTONE 25 MG TAB PO SCH (07:42)
[2019-06-17] MEDS: LOSARTAN 50 MG TAB PO SCH (07:42)
[2019-06-17] MEDS: METOPROLOL TARTRATE 50 MG TAB PO SCH ×2 (07:42→16:17)
[2019-06-17] MEDS: oxyCODONE ER 20 MG TAB.ER.12H PO SCH ×3 (07:43→23:24)
[2019-06-17] MEDS: INSULIN ASPART (NovoLOG) 100 UNIT/ML VIAL SQ SCH ×4 (07:43→21:07)
[2019-06-17] MEDS: AMIODARONE 100 MG TAB PO SCH (07:46)
[2019-06-17 08:05] LABS: Anisocytosis Slight; Basophils # (A) 0.1 k/uL (0-0.2); Basophils % (A) 1 %; Eosinophils # (A) 0.1 k/uL (0-0.7); Eosinophils % (A) 1 %; HGB 9.1 gm/dL (11.4-16.0); Hypochromasia Slight; Lymphocytes # (A) 1.1 k/uL (1.0-4.8); Lymphocytes % (A) 10 %; MCHC 30.4 g/dL (31.0-37.0); Microcytosis Slight; Monocytes # (A) 0.7 k/uL (0-1.0); Monocytes % (A) 6 %; Neutrophils # (A) 9.2 k/uL (1.3-7.7); Neutrophils % (A) 82 %; Platelet Count 425 k/uL (150-450); RDW 18.1 % (11.5-15.5); WBC 11.3 k/uL (3.8-10.6)
--- NOTE | 2019-06-17 08:16 | P.PN ---
Subjective This is a pleasant 74-year-old patient of Dr. Alcala. Chronic stable medical conditions include atrial fibrillation, coronary artery disease, diabetes, hyperlipidemia, hypertension, osteoarthritis, hypothyroid, peripheral arterial disease. December 2017 had a "coronary bypass, complicated by ischemic bowel resulting in the ostomy and a wound VAC. Patient subsequently had intra- abdominal abscess and required protracted course of antibiotics. March 2018 had an abscess and patient did have a MASTER drain in place for the same. December 2018 patient had the incisional hernia with mesh placed. By Dr. Montoya. Patient did undergo admission for significant drainage from MASTER drain. admitted on March 03 and discharged on March 13 and during that admission infected mesh was removed. Patient had a wound VAC placed. Patient was d ischarged on March 13 with 2 week course of IV daptomycin, IV Invanz, and Bactrim. Wound cultures had grown S maltophilia, VRE, staph epidermidis. Patient April 01 admitted with delirium. Dose of OxyContin was cut back. Since then patient was in [place] visiting her son in law and was admitted to the hospital after she became sick. Received antibiotics. Patient intubated. From May 31 through June 05. Admitted with sigmoid diverticulitis. And also adrenal insufficiency. Patient was discharged on 10 days of Ceftin and Flagyl. Patient now presents with feeling weak tired rundown. Yesterday he slept all day or night. Except for going to the bathroom. Denies any fever and chills. Having upper abdominal discomfort. Significant nausea. Patient continues to have a wound VAC. Patient did have some loose stools on Monday and Monday. No fever and chills. Appetite has been okay. Rundown. Patient started on antibiotics in the ER.. INVESTIGATIONS, reviewed in the clinical context: White count 7.9 hemoglobin 11.3 platelets 41 potassium 2.9 bun 11 creatinine 0.63 Lactic acid 3.4 Computed tomography scan of the abdomen and pelvis-not much different than previous computed tomography scan. 06/13/2019 Patient is currently lying in the bed comfortably. Awake alert and oriented 3. Patient says that she feels better. Wound VAC is in place for abdominal wound. No surrounding redness or tenderness noted. Patient has been afebrile. Currently being continued on IV antibiotic is now on Zosyn. Urinalysis and urine culture was ordered. ID and general surgery is following. Pro-calcitonin not elevated 0.09 06/14/2019 Patient is currently lying in the bed comfortably. Awake alert and oriented 3. Abdominal wound is with wound VAC and looks clean. Patient has been afebrile. Urinalysis is negative for infection. Follow-up urine culture report. Patient is currently on antibiotics form of Zosyn. ID is on board and general surgery as well. Denied any complaints of abdominal pain. No nausea vomiting. Tolerating oral diet. No fever no chills. 06/15/2019 Patient is currently denied any complaints of abdominal pain. Abdominal wound is clean and wound VAC in place. Urinalysis showed no evidence of infection. Patient is improving clinically. Tolerating oral diet. Patient has been afebrile. Respiratory well to Zosyn. ID is following. No chest pain or shortness of breath. No cough or sputum production. Able to ambulate to the bathroom. 06/16/2019 Patient is comfortable on the bed. Tolerating heart healthy diet. Denied any complaints of abdominal pain. No nausea vomiting. Patient did have sweats of diarrhea. Currently on antibiotics in the form of Zosyn. Patient did have mild leukocytosis with WBC count 14. Patient is also on hydrocortisone 50 mg every 8, was started as a stress dose. We will reduce to 25 mg every 8 and gradually tapered down. Patient does have hyperglycemia likely due to steroids. Continued on insulin sliding scale and follow. Abdominal wound is clean. Wound VAC in place. ID is planning for repeat CT abdomen to rule out any abdominal abscess. Patient has been afebrile. Blood pressure is stable. General surgery is following. 04/16/2020 Patient is resting in bed, not in distress, she still have some mild abdominal discomfort/pain, wound VAC is placed, she is tolerating diet gradually. No di arrhea. But her bowel movement is soft. No chest pain or dyspnea. Vital stable. WBC is 11.3 K. Hemoglobin is 9.1. Sugar more than 200. Patient is going to [facility] for rehab upon discharge Objective - Vital Signs Vital signs: Vital Signs Temp 97.7 F 06/17/19 07:00 Pulse 79 06/17/19 07:00 Resp 18 06/17/19 07:00 BP 116/60 06/17/19 07:00 Pulse Ox 96 06/17/19 07:00 Intake & Output 06/16/19 06/17/19 06/17/19 18:59 06:59 18:59 Intake Total 900 Balance 900 Intake: Intake, IV Titration 100 Amount Piperacillin-Tazobactam 3 100 .375 gm In Sodium Chloride 0.9% 100 ml @ 25 mls/hr IVPB Q8HR [facility] Rx# :[id number] Oral 800 Other: Voiding Method Toilet Toilet Toilet Diaper Diaper Diaper # Voids 1 2 # Bowel Movements 1 1 - Exam GENERAL: The patient is alert and oriented x3, not in any acute distress. Well developed, well nourished. HEENT: Pupils are round and equally reacting to light. EOMI. No scleral icterus. No conjunctival pallor. Normocephalic, atraumatic. No pharyngeal erythema. No thyromegaly. CARDIOVASCULAR: S1 and S2 present. No murmurs, rubs, or gallops. PULMONARY: Chest is clear to auscultation, no wheezing or crackles. -ABDOMEN: Soft, nontender, nondistended, normoactive bowel sounds. No palpable organomegaly. Wound VAC is in place at periumbilical abdominal wound , no surrounding cellulitis MUSCULOSKELETAL: No joint swelling or deformity. EXTREMITIES: No cyanosis, clubbing, or pedal edema. NEUROLOGICAL: Gross neurological examination did not reveal any focal deficits. SKIN: No rashes. no petechiae. - Labs CBC & Chem 7: 06/17/19 07:08 06/16/19 05:53 Labs: Abnormal Lab Results - Last 24 Hours (Table) 06/16/19 06/16/19 06/16/19 Range/Units 11:35 17:00 20:01 WBC (3.8-10.6) k/uL Hgb (11.4-16.0) gm/dL Hct (34.0-46.0) % MCV (80.0-100.0) fL MCH (25.0-35.0) pg MCHC (31.0-37.0) g/dL RDW (11.5-15.5) % Neutrophils # (1.3-7.7) k/uL POC Glucose (mg/dL) 295 H 228 H 293 H (75-99) mg/dL 06/17/19 06/17/19 Range/Units 07:08 07:27 WBC 11.3 H (3.8-10.6) k/uL Hgb 9.1 L (11.4-16.0) gm/dL Hct 30.0 L (34.0-46.0) % MCV 79.0 L (80.0-100.0) fL MCH 24.0 L (25.0-35.0) pg MCHC 30.4 L (31.0-37.0) g/dL RDW 18.1 H (11.5-15.5) % Neutrophils # 9.2 H (1.3-7.7) k/uL POC Glucose (mg/dL) 213 H (75-99) mg/dL Microbiology - Last 24 Hours (Table) 06/11/19 23:48 Blood Culture - Preliminary Blood No Growth after 120 hours Assessment and Plan Assessment: -Generalized weakness and tiredness with elevated white count. Possible urinary tract infection versus reactive. Leukocytosis improved. currently on IV Zosyn. -Recent history of intra-abdominal abscess from ischemic bowel with multiple episodes of the same, the wound VAC in place. Patient presents with feeling weak tired rundown very sleepy. No fever. Elevated white count. Recent admission with sigmoid diverticulitis. Empirically being treated for infection currently. -Severe hypokalemia . Improved -Possible adrenal insufficiency due to that patient continue steroids for a while.. 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 added stress dose of IV hydrocortisone 50-->25 mg 3 times a day. Patient is tolerating heart healthy diet. Other home medications reviewed. Potassium to be aggressively replaced. Followed by ID and Dr. Montoya from general surgery. Urinalysis is negative for infection. Care was discussed with the patient question answered. DVT prophylaxis: On Eliquis GI prophylaxis: Protonix PT/OT. Subacute rehab Prognosis is guarded
[2019-06-17 08:47] LABS: African American GFR (CKD) >90 (>60 ml/min/1.73 sqM); Anion Gap 7 mmol/L; Blood Urea Nitrogen 12 mg/dL (7-17); Calcium 9.1 mg/dL (8.4-10.2); Carbon Dioxide 21 mmol/L (22-30); Chloride 108 mmol/L (98-107); Glucose 207 mg/dL (74-99); Magnesium 1.8 mg/dL (1.6-2.3); Non-African American GFR(CKD) 88 (>60 ml/min/1.73 sqM); Potassium 3.8 mmol/L (3.5-5.1); Sodium 136 mmol/L (137-145)
[2019-06-17] MEDS: IOPAMIDOL CONTRAST (ORAL USE) VIAL PO PRN ×2 (09:33→10:33)
[2019-06-17 10:02] VITALS: BMI 29.8
[2019-06-17] MEDS: APIXABAN 5 MG TAB PO SCH ×2 (10:33→21:06)
--- NOTE | 2019-06-17 11:28 | P.PN ---
Subjective Progress Note Date: 06/17/19 CHIEF COMPLAINT: Abdominal pain HISTORY OF PRESENT ILLNESS: Patient examined this morning at the bedside. She denies abdominal pain. Tolerating diet. Denies nausea or vomiting. WBC 11.3 today. PHYSICAL EXAM: VITAL SIGNS: Reviewed. GENERAL: Well-developed in no acute distress. HEENT: No sclera icterus. Extraocular movements grossly intact. Moist buccal mucosa. Head is atraumatic, normocephalic. ABDOMEN: Soft. Nondistended. Nontender. Wound VAC to abdomen noted. NEUROLOGIC: Alert and oriented. Cranial nerves II through XII grossly intact. ASSESSMENT: 1. Lethargy, leukocytosis 2. History of incisional hernia repair, complicated by rectus sheath hemorrhage, December 2018 3. History of postoperative intra-abdominal abscess, status post incisional hernia repair with recent removal of infected mesh PLAN: Continue antibiotics per infectious disease. Patient with history of recurrent UTI. Patients UA within normal limits this admission, however UA was obtained greater than 24 hours after arrival to the ER. Patient had been receiving IV antibiotics for over 24 hours when UA was completed. Patient reported urinary frequency and burning with urination when she was examined in the emergency room on the day of admission. Continue to suspect that patient's leukocytosis may be due to her recurrent UTIs No surgical intervention recommended at this time Continue wound vac Repeat CT abdomen pelvis ordered per infectious disease. Await results. If no acute abnormality may be discharged home from a surgical standpoint. Nurse practitioner note has been reviewed by physician. Signing provider agrees with the documented findings, assessment, and plan of care. Objective - Vital Signs Vital signs: Vital Signs Temp 97.7 F 06/17/19 07:00 Pulse 79 06/17/19 07:00 Resp 18 06/17/19 07:00 BP 116/60 06/17/19 07:00 Pulse Ox 96 06/17/19 07:00 Intake & Output 06/16/19 06/17/19 06/17/19 18:59 06:59 18:59 Intake Total 900 Balance 900 Weight 76.5 kg Intake: Intake, IV Titration 100 Amount Piperacillin-Tazobactam 3 100 .375 gm In Sodium Chloride 0.9% 100 ml @ 25 mls/hr IVPB Q8HR [facility] Rx# :[id number] Oral 800 Other: Voiding Method Toilet Toilet Toilet Diaper Diaper Diaper # Voids 1 2 # Bowel Movements 1 1 - Labs CBC & Chem 7: 06/17/19 07:08 06/17/19 07:08 Labs: Abnormal Lab Results - Last 24 Hours (Table) 06/16/19 06/16/19 06/16/19 Range/Units 11:35 17:00 20:01 WBC (3.8-10.6) k/uL Hgb (11.4-16.0) gm/dL Hct (34.0-46.0) % MCV (80.0-100.0) fL MCH (25.0-35.0) pg MCHC (31.0-37.0) g/dL RDW (11.5-15.5) % Neutrophils # (1.3-7.7) k/uL Sodium (137-145) mmol/L Chloride (98-107) mmol/L Carbon Dioxide (22-30) mmol/L Glucose (74-99) mg/dL POC Glucose (mg/dL) 295 H 228 H 293 H (75-99) mg/dL 06/17/19 06/17/19 06/17/19 Range/Units 07:08 07:08 07:27 WBC 11.3 H (3.8-10.6) k/uL Hgb 9.1 L (11.4-16.0) gm/dL Hct 30.0 L (34.0-46.0) % MCV 79.0 L (80.0-100.0) fL MCH 24.0 L (25.0-35.0) pg MCHC 30.4 L (31.0-37.0) g/dL RDW 18.1 H (11.5-15.5) % Neutrophils # 9.2 H (1.3-7.7) k/uL Sodium 136 L (137-145) mmol/L Chloride 108 H (98-107) mmol/L Carbon Dioxide 21 L (22-30) mmol/L Glucose 207 H (74-99) mg/dL POC Glucose (mg/dL) 213 H (75-99) mg/dL Microbiology - Last 24 Hours (Table) 06/11/19 23:48 Blood Culture - Preliminary Blood No Growth after 120 hours
[2019-06-17 11:53] LABS: Glucose,Whole Blood 321 mg/dL (75-99)
--- NOTE | 2019-06-17 12:01 | CT ---
EXAMINATION TYPE: CT abdomen pelvis w con DATE OF EXAM: 06/17/2019 COMPARISON: 06/11/2019 HISTORY: SIRS, Sepsis CT DLP: 1670.10 mGycm CONTRAST: CT scan of the abdomen and pelvis is performed with Oral Contrast and with IV Contrast, patient injec radha with 100 ml mL of Isovue 300. FINDINGS: LUNG BASES-: No visible nodule. No infiltrate. LIVER/GB: Cholecystectomy clips noted to be in place. No space occupying hepatic lesion. Biliary t ree is of normal caliber. PANCREAS: No inflammation. No distinct mass. SPLEEN: No splenic enlargement. No lesion seen. Innumerable splenic granulomas. ADRENALS: No nodule. No thickening. KIDNEYS/BLADDER: No hydronephrosis. No nephrolithiasis. No distinct renal mass. Urinary bladder g rossly unremarkable. BOWEL: Normal appendix. Normal bowel caliber. No inflammation. GENITAL ORGANS: No gross abnormality. LYMPH NODES: No greater than 1cm abdominal or pelvic lymph nodes are appreciated. AORTA: No significant abnormality. OSSEOUS STRUCTURES: No significant abnormality is seen. OTHER: Anterior abdominal wall dehiscence defect redemonstrated with surrounding strandy attenuation which may reflect underlying cellulitis. No evidence for drainable collection. IMPRESSION: 1. Anterior abdominal wall dehiscence defect redemonstrated with surrounding strandy attenuation whic h may reflect underlying cellulitis. No evidence for drainable collection.
[2019-06-17] MEDS: NYSTATIN 100,000UNIT/GM CREAM 30 GM TUBE TOPICAL SCH ×2 (15:39→21:08)
[2019-06-17 16:56] LABS: Glucose,Whole Blood 266 mg/dL (75-99)
[2019-06-17] MEDS: FERROUS SULFATE 325 MG TAB PO SCH (17:17)
[2019-06-17 20:44] LABS: Glucose,Whole Blood 331 mg/dL (75-99)
[2019-06-17] MEDS: ATORVASTATIN 40 MG TAB PO SCH (21:06)
[2019-06-17] MEDS: GABAPENTIN 300 MG CAP PO SCH (21:06)
[2019-06-17] MEDS: DULoxetine HCL 60 MG CAPSULE.DR PO SCH (21:06)
[2019-06-17] MEDS: LATANOPROST 0.005% OPHTH DROPS 2.5 ML BTL BOTH EYES SCH (21:06)
[2019-06-17] MEDS: SODIUM CHLORIDE 0.9% 1,000 ML IV SCH (21:14)
[2019-06-18] MEDS: PIPERACILLIN-TAZOBACTAM 3.375 GM in SODIUM CHLORIDE 0.9% 100 ML IVPB SCH ×3 (03:26→21:04)
[2019-06-18] MEDS: CILOSTAZOL 100 MG TAB PO SCH (05:00)
[2019-06-18] MEDS: LEVOTHYROXINE 88 MCG TAB PO SCH (05:00)
--- NOTE | 2019-06-18 05:26 | PN ---
PROGRESS NOTE DATE OF SERVICE: 06/17/2019. REASON FOR FOLLOWUP: Leukocytosis, possible abdominal sepsis. INTERVAL HISTORY: The patient is currently afebrile. She has been breathing comfortably. The patient has been complaining of some diarrhea today. Denies having any chest pain, shortness of breath or cough and no urinary symptoms. PHYSICAL EXAMINATION: Her vital signs are stable. T-max of 98. General he description is elderly female up in the chair in no distress. RESPIRATORY SYSTEM: Unlabored breathing, with decreased breath sounds in the bases. No wheeze. HEART: S1, S2. Regular rate and rhythm. ABDOMEN: Soft, no tenderness. LABS: White count down to 11.3. Blood cultures have been negative. CT abdominal has no abscess, there was some cellulitis DIAGNOSTIC IMPRESSION AND PLAN: Patient with leukocytosis in this patient who did have extensive workup. She did have a CT repeated. No evidence of any abdominal abscess, some cellulitis. Urine has been negative. Her white count responded to Zosyn. Recommend to get a Midline and continue with IV Zosyn for at least 2 weeks. Local wound care to continue with the wound VAC and monitor clinical course closely. MMODL / IJN: [id number] /
--- NOTE | 2019-06-18 07:09 | P.PN ---
Subjective This is a pleasant 74-year-old patient of Dr. Alcala. Chronic stable medical conditions include atrial fibrillation, coronary artery disease, diabetes, hyperlipidemia, hypertension, osteoarthritis, hypothyroid, peripheral arterial disease. December 2017 had a "coronary bypass, complicated by ischemic bowel resulting in the ostomy and a wound VAC. Patient subsequently had intra- abdominal abscess and required protracted course of antibiotics. March 2018 had an abscess and patient did have a MASTER drain in place for the same. December 2018 patient had the incisional hernia with mesh placed. By Dr. Montoya. Patient did undergo admission for significant drainage from MASTER drain. admitted on March 03 and discharged on March 13 and during that admission infected mesh was removed. Patient had a wound VAC placed. Patient was d ischarged on March 13 with 2 week course of IV daptomycin, IV Invanz, and Bactrim. Wound cultures had grown S maltophilia, VRE, staph epidermidis. Patient April 01 admitted with delirium. Dose of OxyContin was cut back. Since then patient was in [place] visiting her son in law and was admitted to the hospital after she became sick. Received antibiotics. Patient intubated. From May 31 through June 05. Admitted with sigmoid diverticulitis. And also adrenal insufficiency. Patient was discharged on 10 days of Ceftin and Flagyl. Patient now presents with feeling weak tired rundown. Yesterday he slept all day or night. Except for going to the bathroom. Denies any fever and chills. Having upper abdominal discomfort. Significant nausea. Patient continues to have a wound VAC. Patient did have some loose stools on Monday and Monday. No fever and chills. Appetite has been okay. Rundown. Patient started on antibiotics in the ER.. INVESTIGATIONS, reviewed in the clinical context: White count 7.9 hemoglobin 11.3 platelets 41 potassium 2.9 bun 11 creatinine 0.63 Lactic acid 3.4 Computed tomography scan of the abdomen and pelvis-not much different than previous computed tomography scan. 06/13/2019 Patient is currently lying in the bed comfortably. Awake alert and oriented 3. Patient says that she feels better. Wound VAC is in place for abdominal wound. No surrounding redness or tenderness noted. Patient has been afebrile. Currently being continued on IV antibiotic is now on Zosyn. Urinalysis and urine culture was ordered. ID and general surgery is following. Pro-calcitonin not elevated 0.09 06/14/2019 Patient is currently lying in the bed comfortably. Awake alert and oriented 3. Abdominal wound is with wound VAC and looks clean. Patient has been afebrile. Urinalysis is negative for infection. Follow-up urine culture report. Patient is currently on antibiotics form of Zosyn. ID is on board and general surgery as well. Denied any complaints of abdominal pain. No nausea vomiting. Tolerating oral diet. No fever no chills. 06/15/2019 Patient is currently denied any complaints of abdominal pain. Abdominal wound is clean and wound VAC in place. Urinalysis showed no evidence of infection. Patient is improving clinically. Tolerating oral diet. Patient has been afebrile. Respiratory well to Zosyn. ID is following. No chest pain or shortness of breath. No cough or sputum production. Able to ambulate to the bathroom. 06/16/2019 Patient is comfortable on the bed. Tolerating heart healthy diet. Denied any complaints of abdominal pain. No nausea vomiting. Patient did have sweats of diarrhea. Currently on antibiotics in the form of Zosyn. Patient did have mild leukocytosis with WBC count 14. Patient is also on hydrocortisone 50 mg every 8, was started as a stress dose. We will reduce to 25 mg every 8 and gradually tapered down. Patient does have hyperglycemia likely due to steroids. Continued on insulin sliding scale and follow. Abdominal wound is clean. Wound VAC in place. ID is planning for repeat CT abdomen to rule out any abdominal abscess. Patient has been afebrile. Blood pressure is stable. General surgery is following. 06/17/2019 Patient is resting in bed, not in distress, she still have some mild abdominal discomfort/pain, wound VAC is placed, she is tolerating diet gradually. No di arrhea. But her bowel movement is soft. No chest pain or dyspnea. Vital stable. WBC is 11.3 K. Hemoglobin is 9.1. Sugar more than 200. Patient is going to [facility] for rehab upon discharge 06/18/2019 Patient is lying In bed, wound VAC is in place, she is tolerating diet well. She had repeat CAT scan of the abdomen and pelvis yesterday which showed anterior abdominal wall but he seems defect redemonstrates and with surrounding strandy attenuation which may reflect underlying cellulitis, most likely abdominal wound is the source of infection. Infectious disease recommended midline and 2 more weeks of IV Zosyn and to continue wound VAC in place while keep monitoring, patient was started on Cortef intravenously upon admission for stress dose, however patient does not remember she was been on steroids at home however home medication shown prednisone 10 mg daily. We going to stop the ile ocolic Cortef today and start her on prednisone 10 mg daily while keep monitoring, currently blood pressure stable 133/75. Labs are still pending Objective - Vital Signs Vital signs: Vital Signs Temp 98.4 F 06/18/19 02:41 Pulse 68 06/18/19 02:41 Resp 18 06/18/19 02:41 BP 133/75 06/18/19 02:41 Pulse Ox 93 L 06/18/19 02:41 Intake & Output 06/17/19 06/18/19 06/18/19 18:59 06:59 18:59 Intake Total 600 160 Balance 600 160 Weight 76.5 kg Intake: Intake, IV Titration 160 Amount Sodium Chloride 0.9% 1, 160 000 ml @ 20 mls/hr IV . Q24H [facility] Rx#:[id number] Oral 600 Other: Voiding Method Toilet Toilet Diaper Diaper # Voids 2 0 # Bowel Movements 1 - Exam GENERAL: The patient is alert and oriented x3, not in any acute distress. Well developed, well nourished. HEENT: Pupils are round and equally reacting to light. EOMI. No scleral icterus. No conjunctival pallor. Normocephalic, atraumatic. No pharyngeal erythema. No thyromegaly. CARDIOVASCULAR: S1 and S2 present. No murmurs, rubs, or gallops. PULMONARY: Chest is clear to auscultation, no wheezing or crackles. -ABDOMEN: Soft, nontender, nondistended, normoactive bowel sounds. No palpable organomegaly. Wound VAC is in place at periumbilical abdominal wound , no surrounding cellulitis MUSCULOSKELETAL: No joint swelling or deformity. EXTREMITIES: No cyanosis, clubbing, or pedal edema. NEUROLOGICAL: Gross neurological examination did not reveal any focal deficits. SKIN: No rashes. no petechiae. - Labs CBC & Chem 7: 06/17/19 07:08 06/17/19 07:08 Labs: Abnormal Lab Results - Last 24 Hours (Table) 02/06/17/19 06/17/19 Range/Units 07:08 07:08 07:27 WBC 11.3 H (3.8-10.6) k/uL Hgb 9.1 L (11.4-16.0) gm/dL Hct 30.0 L (34.0-46.0) % MCV 79.0 L (80.0-100.0) fL MCH 24.0 L (25.0-35.0) pg MCHC 30.4 L (31.0-37.0) g/dL RDW 18.1 H (11.5-15.5) % Neutrophils # 9.2 H (1.3-7.7) k/uL Sodium 136 L (137-145) mmol/L Chloride 108 H (98-107) mmol/L Carbon Dioxide 21 L (22-30) mmol/L Glucose 207 H (74-99) mg/dL POC Glucose (mg/dL) 213 H (75-99) mg/dL 06/17/19 06/17/19 06/17/19 Range/Units 11:50 16:54 20:43 WBC (3.8-10.6) k/uL Hgb (11.4-16.0) gm/dL Hct (34.0-46.0) % MCV (80.0-100.0) fL MCH (25.0-35.0) pg MCHC (31.0-37.0) g/dL RDW (11.5-15.5) % Neutrophils # (1.3-7.7) k/uL Sodium (137-145) mmol/L Chloride (98-107) mmol/L Carbon Dioxide (22-30) mmol/L Glucose (74-99) mg/dL POC Glucose (mg/dL) 321 H 266 H 331 H (75-99) mg/dL Microbiology - Last 24 Hours (Table) 06/11/19 23:48 Blood Culture - Final Blood No Growth after 144 hours Assessment and Plan Assessment: -Generalized weakness and tiredness with elevated white count. Possible urinary tract infection versus reactive. Leukocytosis improved. currently on IV Zosyn. -Recent history of intra-abdominal abscess from ischemic bowel with multiple episodes of the same, the wound VAC in place. Patient presents with feeling weak tired rundown very sleepy. No fever. Elevated white count. Recent admi ssion with sigmoid diverticulitis. Empirically being treated for infection currently. -Severe hypokalemia . Improved -Possible adrenal insufficiency due to that patient continue steroids for a while.. 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 Change cortisone to prednisone 10 mg daily, home medications reviewed. Potassium to be aggressively replaced. Followed by ID and Dr. Montoya from general surgery. Continue with Zosyn for 2 more weeks. Urinalysis is negative for infection. Care was discussed with the patient question answered. DVT prophylaxis: On Eliquis GI prophylaxis: Protonix PT/OT. Subacute rehab Prognosis is guarded
[2019-06-18 07:18] LABS: Glucose,Whole Blood 175 mg/dL (75-99)
[2019-06-18 07:32] LABS: Anisocytosis Slight; Basophils # (A) 0.1 k/uL (0-0.2); Basophils % (A) 1 %; Eosinophils # (A) 0.4 k/uL (0-0.7); Eosinophils % (A) 4 %; HCT 27.8 % (34.0-46.0); HGB 8.5 gm/dL (11.4-16.0); Hypochromasia Marked; Lymphocytes # (A) 1.4 k/uL (1.0-4.8); Lymphocytes % (A) 12 %; MCH 24.4 pg (25.0-35.0); MCHC 30.4 g/dL (31.0-37.0); MCV 80.3 fL (80.0-100.0); Mean Platelet Volume 7.2; Microcytosis Slight; Monocytes # (A) 0.6 k/uL (0-1.0); Monocytes % (A) 5 %; Neutrophils # (A) 8.8 k/uL (1.3-7.7); Neutrophils % (A) 76 %; Platelet Count 567 k/uL (150-450); RBC 3.46 m/uL (3.80-5.40); RDW 17.6 % (11.5-15.5); WBC 11.5 k/uL (3.8-10.6)
[2019-06-18] MEDS: oxyCODONE ER 20 MG TAB.ER.12H PO SCH ×2 (07:34→16:29)
[2019-06-18] MEDS: METOPROLOL TARTRATE 50 MG TAB PO SCH ×2 (07:34→16:29)
[2019-06-18] MEDS: PANTOPRAZOLE 40 MG TABLET PO SCH (07:34)
[2019-06-18] MEDS: INSULIN ASPART (NovoLOG) 100 UNIT/ML VIAL SQ SCH ×4 (07:34→21:05)
[2019-06-18] MEDS: NYSTATIN 100,000UNIT/GM CREAM 30 GM TUBE TOPICAL SCH ×2 (08:18→21:06)
[2019-06-18] MEDS: LOSARTAN 50 MG TAB PO SCH (08:18)
[2019-06-18] MEDS: SPIRONOLACTONE 25 MG TAB PO SCH (08:18)
[2019-06-18] MEDS: GABAPENTIN 100 MG CAP PO SCH ×2 (08:18→16:29)
[2019-06-18] MEDS: AMIODARONE 100 MG TAB PO SCH (08:18)
[2019-06-18] MEDS: APIXABAN 5 MG TAB PO SCH (08:18)
[2019-06-18] MEDS: predniSONE 10 MG TAB PO SCH (08:18)
[2019-06-18] MEDS ORDERED: HYDROCORTISONE SUCCINATE 100 MG/2 ML VIAL IV SCH (09:00)
[2019-06-18 11:44] LABS: Glucose,Whole Blood 242 mg/dL (75-99)
--- NOTE | 2019-06-18 12:29 | P.PN ---
Subjective Progress Note Date: 06/18/19 CHIEF COMPLAINT: Abdominal pain HISTORY OF PRESENT ILLNESS: Patient examined this morning at the bedside. She denies abdominal pain. Tolerating diet. Denies nausea or vomiting. WBC 11.5 today. PHYSICAL EXAM: VITAL SIGNS: Reviewed. GENERAL: Well-developed in no acute distress. HEENT: No sclera icterus. Extraocular movements grossly intact. Moist buccal mucosa. Head is atraumatic, normocephalic. ABDOMEN: Soft. Nondistended. Nontender. Wound VAC to abdomen noted. NEUROLOGIC: Alert and oriented. Cranial nerves II through XII grossly intact. ASSESSMENT: 1. Lethargy, leukocytosis 2. History of incisional hernia repair, complicated by rectus sheath hemorrhage, December 2018 3. History of postoperative intra-abdominal abscess, status post incisional hernia repair with recent removal of infected mesh PLAN: Continue antibiotics per infectious disease. Patient with history of recurrent UTI. Patients UA within normal limits this admission, however UA was obtained greater than 24 hours after arrival to the ER. Patient had been receiving IV antibiotics for over 24 hours when UA was completed. Patient reported urinary frequency and burning with urination when she was examined in the emergency room on the day of admission. Continue to suspect that patient's leukocytosis may be due to her recurrent UTIs No surgical intervention recommended at this time Continue wound vac Patient to be discharged on IV antibiotics per infectious disease. Will hold Eliquis and place order for midline IV to be inserted Stable for discharge from a surgical standpoint when cleared by internal medicine and infectious disease Nurse practitioner note has been reviewed by physician. Signing provider agrees with the documented findings, assessment, and plan of care. Objective - Vital Signs Vital signs: Vital Signs Temp 98.4 F 06/18/19 07:00 Pulse 63 06/18/19 07:00 Resp 16 06/18/19 07:00 BP 161/96 06/18/19 07:00 Pulse Ox 93 L 06/18/19 07:00 Intake & Output 06/17/19 06/18/19 06/18/19 18:59 06:59 18:59 Intake Total 600 160 Balance 600 160 Weight 76.5 kg Intake: Intake, IV Titration 160 Amount Sodium Chloride 0.9% 1, 160 000 ml @ 20 mls/hr IV . Q24H [facility] Rx#:[id number] Oral 600 Other: Voiding Method Toilet Toilet Toilet Diaper Diaper Diaper # Voids 2 0 # Bowel Movements 1 - Labs CBC & Chem 7: 06/18/19 07:10 06/17/19 07:08 Labs: Abnormal Lab Results - Last 24 Hours (Table) 06/17/19 06/17/19 06/18/19 Range/Units 16:54 20:43 07:10 WBC 11.5 H (3.8-10.6) k/uL RBC 3.46 L (3.80-5.40) m/uL Hgb 8.5 L (11.4-16.0) gm/dL Hct 27.8 L (34.0-46.0) % MCH 24.4 L (25.0-35.0) pg MCHC 30.4 L (31.0-37.0) g/dL RDW 17.6 H (11.5-15.5) % Plt Count 567 H (150-450) k/uL Neutrophils # 8.8 H (1.3-7.7) k/uL POC Glucose (mg/dL) 266 H 331 H (75-99) mg/dL 06/18/19 06/18/19 Range/Units 07:16 11:41 WBC (3.8-10.6) k/uL RBC (3.80-5.40) m/uL Hgb (11.4-16.0) gm/dL Hct (34.0-46.0) % MCH (25.0-35.0) pg MCHC (31.0-37.0) g/dL RDW (11.5-15.5) % Plt Count (150-450) k/uL Neutrophils # (1.3-7.7) k/uL POC Glucose (mg/dL) 175 H 242 H (75-99) mg/dL Microbiology - Last 24 Hours (Table) 06/11/19 23:48 Blood Culture - Final Blood No Growth after 144 hours
--- NOTE | 2019-06-18 16:12 | PN ---
PROGRESS NOTE DATE OF SERVICE: 06/18/2019 REASON FOR FOLLOWUP: Leukocytosis, possible abdominal source. INTERVAL HISTORY: The patient is currently afebrile. The patient has been breathing comfortably. She is complaining of not feeling as good, though, but no nausea, no vomiting. Denies any abdominal pain. She did mention that she had two loose stools this morning. Stool for C difficile has been requested; not collected. PHYSICAL EXAMINATION: On examination, her blood pressure is 161/96 with a pulse of 63, temperature 98.4. She is 93% on room air. General description is an elderly female lying in bed in no distress. RESPIRATORY SYSTEM: Unlabored breathing. Clear to auscultation anteriorly. HEART: S1, S2. Regular rate and rhythm. ABDOMEN: Soft. No tenderness. LABS: White count 11.5. Blood culture has been negative. DIAGNOSTIC IMPRESSION AND PLAN: 1. Patient admitted to hospital not feeling well, nausea, in this patient who did have elevated white count. So far the patient did have extensive workup, including a repeat CT of abdomen and pelvis with oral contrast with possible cellulitis noted. No drainable collection. Patient clinically responding to Zosyn. Will let that continue for at least 2 weeks. 2. Patient with diarrhea. Will wait for the stool for C difficile to be completed. If it is negative, will add Questran for symptomatic relief. Continue with supportive care. MMODL / IJN: [id number] /
[2019-06-18] MEDS: FERROUS SULFATE 325 MG TAB PO SCH (16:29)
[2019-06-18 16:59] LABS: Glucose,Whole Blood 289 mg/dL (75-99)
[2019-06-18 20:07] LABS: Glucose,Whole Blood 306 mg/dL (75-99)
[2019-06-18] MEDS: ATORVASTATIN 40 MG TAB PO SCH (21:05)
[2019-06-18] MEDS: DULoxetine HCL 60 MG CAPSULE.DR PO SCH (21:05)
[2019-06-18] MEDS: LATANOPROST 0.005% OPHTH DROPS 2.5 ML BTL BOTH EYES SCH (21:05)
[2019-06-18] MEDS: GABAPENTIN 300 MG CAP PO SCH (21:05)
[2019-06-19] MEDS: oxyCODONE ER 20 MG TAB.ER.12H PO SCH ×3 (00:11→17:32)
[2019-06-19] MEDS: PIPERACILLIN-TAZOBACTAM 3.375 GM in SODIUM CHLORIDE 0.9% 100 ML IVPB SCH ×3 (03:51→20:38)
[2019-06-19] MEDS: CILOSTAZOL 100 MG TAB PO SCH (05:19)
[2019-06-19] MEDS: LEVOTHYROXINE 88 MCG TAB PO SCH (05:19)
[2019-06-19] MEDS: SODIUM CHLORIDE 0.9% 1,000 ML IV SCH ×2 (05:48→20:32)
[2019-06-19] MEDS: METOPROLOL TARTRATE 50 MG TAB PO SCH ×2 (07:15→17:33)
[2019-06-19] MEDS: GABAPENTIN 100 MG CAP PO SCH ×2 (07:16→17:32)
[2019-06-19] MEDS: SPIRONOLACTONE 25 MG TAB PO SCH (07:16)
[2019-06-19] MEDS: PANTOPRAZOLE 40 MG TABLET PO SCH (07:16)
[2019-06-19] MEDS: predniSONE 10 MG TAB PO SCH (07:16)
[2019-06-19] MEDS: AMIODARONE 100 MG TAB PO SCH (07:17)
[2019-06-19] MEDS: LOSARTAN 50 MG TAB PO SCH (07:17)
[2019-06-19 07:37] LABS: Glucose,Whole Blood 276 mg/dL (75-99)
[2019-06-19 07:52] LABS: Anisocytosis Slight; Basophils # (A) 0.1 k/uL (0-0.2); Basophils % (A) 1 %; Eosinophils # (A) 0.5 k/uL (0-0.7); Eosinophils % (A) 4 %; HCT 28.3 % (34.0-46.0); HGB 8.6 gm/dL (11.4-16.0); Hypochromasia Marked; Lymphocytes # (A) 1.2 k/uL (1.0-4.8); Lymphocytes % (A) 10 %; MCH 24.5 pg (25.0-35.0); MCHC 30.3 g/dL (31.0-37.0); MCV 80.8 fL (80.0-100.0); Mean Platelet Volume 7.4; Microcytosis Slight; Monocytes # (A) 0.6 k/uL (0-1.0); Monocytes % (A) 5 %; Neutrophils # (A) 10.2 k/uL (1.3-7.7); Neutrophils % (A) 80 %; Platelet Count 543 k/uL (150-450); RDW 17.5 % (11.5-15.5); WBC 12.7 k/uL (3.8-10.6)
[2019-06-19] MEDS: INSULIN ASPART (NovoLOG) 100 UNIT/ML VIAL SQ SCH ×4 (08:00→20:31)
[2019-06-19] MEDS: APIXABAN 5 MG TAB PO SCH ×2 (09:16→20:32)
[2019-06-19] MEDS: NYSTATIN 100,000UNIT/GM CREAM 30 GM TUBE TOPICAL SCH ×2 (09:17→20:32)
--- NOTE | 2019-06-19 11:03 | P.PN ---
Subjective Progress Note Date: 06/19/19 CHIEF COMPLAINT: Abdominal pain HISTORY OF PRESENT ILLNESS: Patient examined this morning at the bedside. She denies abdominal pain. Tolerating diet. Denies nausea or vomiting. WBC 12.7. Cdiff negative. Vital signs stable. She is afebrile. PHYSICAL EXAM: VITAL SIGNS: Reviewed. GENERAL: Well-developed in no acute distress. HEENT: No sclera icterus. Extraocular movements grossly intact. Moist buccal mucosa. Head is atraumatic, normocephalic. ABDOMEN: Soft. Nondistended. Nontender. Wound VAC to abdomen noted. NEUROLOGIC: Alert and oriented. Cranial nerves II through XII grossly intact. ASSESSMENT: 1. Lethargy, leukocytosis 2. History of incisional hernia repair, complicated by rectus sheath hemorrh age, December 2018 3. History of postoperative intra-abdominal abscess, status post incisional her anusha repair with recent removal of infected mesh PLAN: No surgical intervention recommended at this time Continue wound vac Patient to be discharged on IV antibiotics per infectious disease. Midline IV has been inserted. May resume Eliquis. Stable for discharge from a surgical standpoint when cleared by internal medicine and infectious disease Nurse practitioner note has been reviewed by physician. Signing provider agrees with the documented findings, assessment, and plan of care. Objective - Vital Signs Vital signs: Vital Signs Temp 98.2 F 06/19/19 07:00 Pulse 82 06/19/19 07:00 Resp 16 06/19/19 08:00 BP 155/81 06/19/19 07:00 Pulse Ox 95 06/19/19 07:00 Intake & Output 06/18/19 06/19/19 06/19/19 18:59 06:59 18:59 Intake Total 320 Balance 320 Intake: Intake, IV Titration 320 Amount Sodium Chloride 0.9% 1, 320 000 ml @ 20 mls/hr IV . Q24H [facility] Rx#:[id number] Other: Voiding Method Toilet Toilet Toilet Diaper Diaper Diaper # Voids 1 1 # Bowel Movements 2 - Labs CBC & Chem 7: 06/19/19 06:58 06/17/19 07:08 Labs: Abnormal Lab Results - Last 24 Hours (Table) 06/18/19 06/18/19 06/18/19 Range/Units 11:41 16:57 20:06 WBC (3.8-10.6) k/uL RBC (3.80-5.40) m/uL Hgb (11.4-16.0) gm/dL Hct (34.0-46.0) % MCH (25.0-35.0) pg MCHC (31.0-37.0) g/dL RDW (11.5-15.5) % Plt Count (150-450) k/uL Neutrophils # (1.3-7.7) k/uL POC Glucose (mg/dL) 242 H 289 H 306 H (75-99) mg/dL 06/19/19 06/19/19 Range/Units 06:58 07:32 WBC 12.7 H (3.8-10.6) k/uL RBC 3.50 L (3.80-5.40) m/uL Hgb 8.6 L (11.4-16.0) gm/dL Hct 28.3 L (34.0-46.0) % MCH 24.5 L (25.0-35.0) pg MCHC 30.3 L (31.0-37.0) g/dL RDW 17.5 H (11.5-15.5) % Plt Count 543 H (150-450) k/uL Neutrophils # 10.2 H (1.3-7.7) k/uL POC Glucose (mg/dL) 276 H (75-99) mg/dL
[2019-06-19 11:57] LABS: Glucose,Whole Blood 336 mg/dL (75-99)
[2019-06-19 15:16] LABS: Appearance,Urine Clear (Clear); Bilirubin,Urine Negative (Negative); Blood,Urine Negative (Negative); Color,Urine Yellow; Glucose,Urine (UA) 3+ (Negative); Ketones,Urine Negative (Negative); Protein,Urine Negative (Negative); Specific Gravity,Urine 1.005 (1.001-1.035); Urobilinogen,Urine <2.0 mg/dL (<2.0)
[2019-06-19 15:17] LABS: Leukocyte Esterase,Urine Negative (Negative); Nitrite,Urine Negative (Negative)
[2019-06-19 17:19] LABS: Glucose,Whole Blood 289 mg/dL (75-99)
[2019-06-19] MEDS: FERROUS SULFATE 325 MG TAB PO SCH (17:32)
[2019-06-19 17:38] LABS: Hemoglobin A1C 7.8 % (4.0-6.0)
--- NOTE | 2019-06-19 18:42 | PN ---
PROGRESS NOTE DATE OF SERVICE: 06/19/2019. REASON FOR FOLLOWUP: 1. Leukocytosis, possible abdominal source. 2. Abdominal wound, post surgical. INTERVAL HISTORY: The patient has been afebrile. She has been breathing comfortably. The diarrhea has decreased. However has been complaining of urinary frequency and some burning this morning. The patient denies having any chest pain or shortness of breath or cough and no diarrhea. PHYSICAL EXAMINATION: Blood pressure 125/83 with a pulse of 83, temperature 98.4. She is 91% on room air. General description is an elderly female up in the bed in no distress. Respiratory system: Unlabored breathing, clear to auscultation anteriorly. Heart S1, S2. Regular rate and rhythm. Abdomen soft, no tenderness. LABS: Hemoglobin 8.6, white count 12.7. DIAGNOSTIC IMPRESSION AND PLAN: Patient with leukocytosis which is likely multifactorial with possible abdominal source. However, no definite fluid collection has been seen. The patient has been on Zosyn, to continue. She has been complaining of urinary symptoms for which UA will be checked and treated positive. Local wound care to the abdominal wound with wound VAC. Continue supportive care. MMODL / IJN: [id number] /
[2019-06-19 20:17] LABS: Glucose,Whole Blood 254 mg/dL (75-99)
[2019-06-19] MEDS: GABAPENTIN 300 MG CAP PO SCH (20:31)
[2019-06-19] MEDS: DULoxetine HCL 60 MG CAPSULE.DR PO SCH (20:32)
[2019-06-19] MEDS: ATORVASTATIN 40 MG TAB PO SCH (20:32)
[2019-06-19] MEDS: LATANOPROST 0.005% OPHTH DROPS 2.5 ML BTL BOTH EYES SCH (20:37)
--- NOTE | 2019-06-19 22:26 | P.PN ---
Progress Note - Text Progress Note Date: 06/19/19 Chief Complaint: Abdominal discomfort History of presenting complaint: This is a pleasant 74-year-old patient of Dr. Alcala. Chronic stable medical conditions include atrial fibrillation, coronary artery disease, diabetes, hyperlipidemia, hypertension, osteoarthritis, hypothyroid, peripheral arterial disease. December 2017 had a "coronary bypass, complicated by ischemic bowel resulting in the ostomy and a wound VAC. Patient subsequently had intra- abdominal abscess and required protracted course of antibiotics. March 2018 had an abscess and patient did have a MASTER drain in place for the same. December 2018 patient had the incisional hernia with mesh placed. By Dr. Montoya. Patient did undergo admission for significant drainage from MASTER drain. admitted on March 03 and discharged on March 13 and during that admission infected mesh was removed. Patient had a wound VAC placed. Patient was discharged on March 13 with 2 week course of IV daptomycin, IV Invanz, and Bactrim. Wound cultures had grown S maltophilia, VRE, staph epidermidis. Patient April 01 admitted with delirium. Dose of OxyContin was cut back. Since then patient was in [place] visiting her son in law and was admitted to the hospital after she became sick. Received antibiotics. Patient intubated. From May 31 through June 05. Admitted with sigmoid diverticulitis. And also adrenal insufficiency. Patient was discharged on 10 days of Ceftin and Flagyl. Patient now presents with feeling weak tired rundown. Yesterday he slept all day or night. Except for going to the bathroom. Denies any fever and chills. Having upper abdominal discomfort. Significant nausea. Patient continues to have a wound VAC. Patient did have some loose stools on Monday and Monday. No fever and chills. Appetite has been okay. Rundown. Patient started on antibiotics in the ER.. Today-has been empirically and IV Zosyn. Feeling better. White count has been up and down. Pending UA today. Tolerating a diet. No abdominal pain. Review of systems: Was done for constitutional, cardiovascular, GI, pulmonary. relevant finding as above Active Medications Acetaminophen (Tylenol Tab) 650 mg PO Q6HR PRN PRN Reason: Mild Pain or Fever > 100.5 Hydrocodone Bitart/Acetaminophen ([place] 5-325) 2 each PO Q6HR PRN PRN Reason: Pain Last Admin: 06/12/19 02:57 Dose: 1 each Documented by: Amiodarone HCl (Cordarone) 100 mg PO DAILY [facility] Last Admin: 06/19/19 07:17 Dose: 100 mg Documented by: Apixaban (Eliquis) 5 mg PO BID [facility] Last Admin: 06/19/19 20:32 Dose: 5 mg Documented by: Atorvastatin Calcium (Lipitor) 40 mg PO [facility] Last Admin: 06/19/19 20:32 Dose: 40 mg Documented by: Cilostazol (Pletal) 100 mg PO DAILY@0500 [facility] Last Admin: 06/19/19 05:19 Dose: 100 mg Documented by: Duloxetine HCl (Cymbalta) 60 mg PO [facility] Last Admin: 06/19/19 20:32 Dose: 60 mg Documented by: Ergocalciferol (Vitamin D2) 50,000 unit PO [facility] Last Admin: 06/16/19 07:29 Dose: 50,000 unit Documented by: Ferrous Sulfate (Feosol) 325 mg PO AC-SUPPER [facility] Last Admin: 06/19/19 17:32 Dose: 325 mg Documented by: Gabapentin (Neurontin) 100 mg PO BID@0900,1600 [facility] Last Admin: 06/19/19 17:32 Dose: 100 mg Documented by: Gabapentin (Neurontin) 300 mg PO [facility] Last Admin: 06/19/19 20:31 Dose: 300 mg Documented by: Sodium Chloride (Saline 0.9%) 1,000 mls @ 20 mls/hr IV .Q24H [facility] Last Admin: 06/19/19 20:32 Dose: 20 mls/hr Documented by: Piperacillin Sod/Tazobactam (Sod 3.375 gm/ Sodium Chloride) 100 mls @ 25 mls/hr IVPB Q8H [facility] Last Admin: 06/19/19 20:38 Dose: 25 mls/hr Documented by: Insulin Aspart (Novolog) 0 unit SQ [facility]; Protocol Last Admin: 06/19/19 20:31 Dose: 6 unit Documented by: Latanoprost (Xalatan 0.005%) 1 drops BOTH EYES [facility] Last Admin: 06/19/19 20:37 Dose: 1 drops Documented by: Levothyroxine Sodium (Synthroid) 88 mcg PO DAILY@0600 [facility] Last Admin: 06/19/19 05:19 Dose: 88 mcg Documented by: Loperamide HCl (Imodium) 2 mg PO BID PRN PRN Reason: Diarrhea Losartan Potassium (Cozaar) 50 mg PO DAILY [facility] Last Admin: 06/19/19 07:17 Dose: 50 mg Documented by: Metoclopramide HCl (Reglan) 10 mg IVP Q8H PRN PRN Reason: Nausea And Vomiting Metoprolol Tartrate (Lopressor) 50 mg PO AC-BID@0800,1700 [facility] Last Admin: 06/19/19 17:33 Dose: 50 mg Documented by: Naloxone HCl (Narcan) 0.2 mg IV Q2M PRN PRN Reason: Opioid Reversal Nystatin (Mycostatin Cream) 1 applic TOPICAL BID [facility] Last Admin: 06/19/19 20:32 Dose: 1 applic Documented by: Oxycodone HCl (Oxycontin 20mg E.R.) 20 mg PO Q8HR [facility] Last Admin: 06/19/19 17:32 Dose: 20 mg Documented by: Pantoprazole Sodium (Protonix) 40 mg PO AC-BRKFST [facility] Last Admin: 06/19/19 07:16 Dose: 40 mg Documented by: Prednisone () 10 mg PO DAILY [facility] Last Admin: 06/19/19 07:16 Dose: 10 mg Documented by: Spironolactone (Aldactone) 50 mg PO DAILY [facility] Last Admin: 06/19/19 07:16 Dose: 50 mg Documented by: Physical examination: VITAL SIGNS: 98.4, 83, 16, 125/83, 91% GENERAL: Laying in bed, comfortable EYES: Pupils equal. Conjunctiva pale HEENT: External appearance of nose and ears normal, oral cavity dry NECK: JVD unable to assess; masses not palpable. HEART: First and second heart sounds are normal; some edema. LUNGS: Respiratory rate normal; decreased breath sounds. ABDOMEN: Soft, wound VAC in place. No tenderness, no guarding or rigidity, liver spleen not palpable, PSYCH: AAO 3, motor affect normal NEUROLOGICAL: Cranial nerves grossly intact, SENSATION grossly intact INVESTIGATIONS, reviewed in the clinical context: White count 12.7 hemoglobin 8.6 Previous testing White count 7.9 hemoglobin 11.3 platelets 41 potassium 2.9 bun 11 creatinine 0.63 Lactic acid 3.4 Computed tomography scan of the abdomen and pelvis-not much different than previous computed tomography scan. Assessment: -Patient rather extensive medical history regarding intra-abdominal abscess from ischemic bowel with multiple episodes of the same, the wound VAC in place. Patient presents with feeling weak tired rundown very sleepy. No fever.Elevated white count. Recent admission with sigmoid diverticulitis. Empirically being treated for infection currently. -Severe hypokalemia could be contributing -Possible adrenal insufficiency due to that patient continue steroids for a while.. 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 Awarded a straight cath for urine sample for UA. Discussed with Dr. costa from ID. if that is unremarkable then she can return to the ECF/discharge.
[2019-06-20] MEDS: oxyCODONE ER 20 MG TAB.ER.12H PO SCH ×2 (00:48→07:43)
[2019-06-20] MEDS: PIPERACILLIN-TAZOBACTAM 3.375 GM in SODIUM CHLORIDE 0.9% 100 ML IVPB SCH ×2 (04:21→12:15)
[2019-06-20] MEDS: CILOSTAZOL 100 MG TAB PO SCH (04:21)
[2019-06-20] MEDS: LEVOTHYROXINE 88 MCG TAB PO SCH (05:12)
[2019-06-20 07:03] LABS: Glucose,Whole Blood 177 mg/dL (75-99)
[2019-06-20 07:40] LABS: Anisocytosis Slight; Basophils # (A) 0.1 k/uL (0-0.2); Basophils % (A) 1 %; Eosinophils # (A) 0.6 k/uL (0-0.7); Eosinophils % (A) 5 %; HCT 28.5 % (34.0-46.0); HGB 8.7 gm/dL (11.4-16.0); Hypochromasia Moderate; Lymphocytes # (A) 1.2 k/uL (1.0-4.8); Lymphocytes % (A) 10 %; MCH 24.6 pg (25.0-35.0); MCHC 30.6 g/dL (31.0-37.0); MCV 80.3 fL (80.0-100.0); Mean Platelet Volume 7.7; Microcytosis Slight; Monocytes # (A) 0.5 k/uL (0-1.0); Monocytes % (A) 4 %; Neutrophils # (A) 9.5 k/uL (1.3-7.7); Neutrophils % (A) 79 %; Platelet Count 509 k/uL (150-450); RBC 3.55 m/uL (3.80-5.40); RDW 18.2 % (11.5-15.5); WBC 12.1 k/uL (3.8-10.6)
[2019-06-20] MEDS: APIXABAN 5 MG TAB PO SCH (07:43)
[2019-06-20] MEDS: LOSARTAN 50 MG TAB PO SCH (07:43)
[2019-06-20] MEDS: METOPROLOL TARTRATE 50 MG TAB PO SCH (07:43)
[2019-06-20] MEDS: predniSONE 10 MG TAB PO SCH (07:44)
[2019-06-20] MEDS: AMIODARONE 100 MG TAB PO SCH (07:44)
[2019-06-20] MEDS: GABAPENTIN 100 MG CAP PO SCH (07:44)
[2019-06-20] MEDS: PANTOPRAZOLE 40 MG TABLET PO SCH (07:44)
[2019-06-20] MEDS: SPIRONOLACTONE 25 MG TAB PO SCH (07:44)
[2019-06-20] MEDS: INSULIN ASPART (NovoLOG) 100 UNIT/ML VIAL SQ SCH ×2 (07:45→12:15)
[2019-06-20 07:51] LABS: C Reactive Protein 60.7 mg/L (<10.0); Potassium 3.4 mmol/L (3.5-5.1)
[2019-06-20 12:01] LABS: Glucose,Whole Blood 380 mg/dL (75-99)
[2019-06-20] MEDS: NYSTATIN 100,000UNIT/GM CREAM 30 GM TUBE TOPICAL SCH (12:15)
--- NOTE | 2019-06-20 12:27 | P.DS ---
Providers Date of admission: 06/11/19 20:50 Expected date of discharge: 06/20/19 Attending physician: Parveen Dietz Consults: 06/11/19 20:18 Consult Physician Routine Consulting Provider: Christopher Montoya Consult Reason/Comments: abdominal pain Do you want consulting provider notified?: Yes Consult Physician Routine Consulting Provider: Comfort Costa Consult Reason/Comments: infectiou Do you want consulting provider notified?: Yes Primary care physician: Diaz Br[facility] Course: Chief Complaint: Abdominal discomfort History of presenting complaint: This is a pleasant 74-year-old patient of Dr. Alcala. Chronic stable medical conditions include atrial fibrillation, coronary artery disease, diabetes, hyperlipidemia, hypertension, osteoarthritis, hypothyroid, peripheral arterial disease. December 2017 had a "coronary bypass, complicated by ischemic bowel resulting in the ostomy and a wound VAC. Patient subsequently had intra-abd ominal abscess and required protracted course of antibiotics. March 2018 had an abscess and patient did have a MASTER drain in place for the same. December 2018 patient had the incisional hernia with mesh placed. By Dr. Montoya. Patient did undergo admission for significant drainage from MASTER drain. admitted on March 03 and discharged on March 13 and during that admission infected mesh was removed. Patient had a wound VAC placed. Patient was discharged on March 13 with 2 week course of IV daptomycin, IV Invanz, and Bactrim. Wound cultures had grown S maltophilia, VRE, staph epidermidis. Patient April 01 admitted with delirium. Dose of OxyContin was cut back. Since then patient was in [place] visiting her son in law and was admitted to the hospital after she became sick. Received antibiotics. Patient intubated. From May 31 through June 05. Admitted with sigmoid diverticulitis. And also adrenal insufficiency. Patient was discharged on 10 days of Ceftin and Flagyl. Patient now presents with feeling weak tired rundown. Yesterday he slept all day or night. Except for going to the bathroom. Denies any fever and chills. Having upper abdominal discomfort. Significant nausea. Patient continues to have a wound VAC. Patient did have some loose stools on Monday and Monday. No fever and chills. Appetite has been okay. Rundown. Patient started on a ntibiotics in the ER.. Patient was empirically treated with IV Zosyn. Did well. UA came back negative. Also did get a burst of steroids. For stress dose. Today-doing well. Starting a diet. No abdominal pain. Discussed with Dr. costa from ID. 7 days of IV Zosyn. Discussed with the patient. Discussed with process planner Discussion and discharge planning more than 35 minutes Consultation: Dr. costa from ID Dr. Montoya from surgery Physical examination: VITAL SIGNS: 98.4, 80, 16, 154/85, 92% on room air GENERAL: Sitting up in a recliner,, comfortable EYES: Pupils equal. Conjunctiva pale HEENT: External appearance of nose and ears normal, oral cavity dry NECK: JVD unable to assess; masses not palpable. HEART: First and second heart sounds are normal; some edema. LUNGS: Respiratory rate normal; decreased breath sounds. ABDOMEN: Soft, wound VAC in place. No tenderness, no guarding or rigidity, liver spleen not palpable, PSYCH: AAO 3, motor affect normal NEUROLOGICAL: Cranial nerves grossly intact, SENSATION grossly intact INVESTIGATIONS, reviewed in the clinical context: White count 12.1 hemoglobin 8.7 creatinine 0.8 Previous testing White count 7.9 hemoglobin 11.3 platelets 41 potassium 2.9 bun 11 creatinine 0.63 Lactic acid 3.4 Computed tomography scan of the abdomen and pelvis-not much different than previous computed tomography scan. UA-negative Assessment: -Patient rather extensive medical history regarding intra-abdominal abscess from ischemic bowel with multiple episodes of the same, the wound VAC in place. Patient presents with feeling weak tired rundown very sleepy. No fever.Elevated white count. Possible sigmoid diverticulitis. 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 Plan: ECF/[place] Patient Condition at Discharge: Fair Plan - Discharge Summary Discharge Rx Participant: No New Discharge Prescriptions: New Piperacillin-Tazobactam [Zosyn] 3.375 gm IVPB Q8H #21 vial Continue Ergocalciferol (Vitamin D2) [Vitamin D2] 50,000 unit PO COHEN DULoxetine HCL [Cymbalta] 60 mg PO HS Latanoprost/Pf [Latanoprost 0.005% Eye Drop] 1 drop BOTH EYES HS Amiodarone [Cordarone] 100 mg PO DAILY Metoprolol Tartrate [Lopressor] 50 mg PO AC-BID@0800,1700 Cilostazol [Pletal] 100 mg PO DAILY@0500 metFORMIN HCL [Glucophage] 500 mg PO AC-BID@0800,1700 L.acidoph,Paracasei, B.lactis [Probiotic] 1 cap PO AC-BID@0800,1700 predniSONE 10 mg PO DAILY Levothyroxine Sodium [Synthroid] 88 mcg PO DAILY@0600 Nystatin 100,000Unit/gm Cream [Mycostatin Cream] 1 applic TOPICAL BID Ferrous Sulfate [Iron (65 MG Elemental)] 325 mg PO AC-SUPPER Loperamide [Imodium] 2 mg PO BID PRN PRN Reason: Diarrhea Pantoprazole [Protonix] 40 mg PO DAILY #15 tablet.dr Acetaminophen Tab [Tylenol] 650 mg PO Q6HR PRN tab PRN Reason: Mild Pain Or Fever > 100.5 Losartan [Cozaar] 50 mg PO DAILY Atorvastatin [Lipitor] 40 mg PO HS Apixaban [Eliquis] 5 mg PO BID Spironolactone [Aldactone] 50 mg PO DAILY tab Insulin Aspart [NovoLOG Flexpen] 3 unit SQ QAM Gabapentin [Neurontin] 300 mg PO HS #3 cap Gabapentin [Neurontin] 100 mg PO BID #6 cap oxyCODONE HCL [OxyCONTIN] 20 mg PO Q8H #6 tab Discontinued Potassium Chloride ER [K-Dur 20] 40 meq PO AC-SUPPER Cefuroxime Axetil [Ceftin] 500 mg PO BID #20 tab metroNIDAZOLE [Flagyl] 500 mg PO Q8HR #30 tab Furosemide [Lasix] 40 mg PO DAILY #0 predniSONE See Taper PO DIRECTED Discharge Medication List DULoxetine HCL [Cymbalta] 60 mg PO HS 12/14/16 [History] Ergocalciferol (Vitamin D2) [Vitamin D2] 50,000 unit PO COHEN 12/14/16 [History] Amiodarone [Cordarone] 100 mg PO DAILY 03/02/18 [History] Latanoprost/Pf [Latanoprost 0.005% Eye Drop] 1 drop BOTH EYES HS 03/02/18 [History] Cilostazol [Pletal] 100 mg PO DAILY@0500 11/15/18 [History] Metoprolol Tartrate [Lopressor] 50 mg PO AC-BID@0800,1700 11/15/18 [History] metFORMIN HCL [Glucophage] 500 mg PO AC-BID@0800,1700 11/15/18 [History] L.acidoph,Paracasei, B.lactis [Probiotic] 1 cap PO AC-BID@0800,1700 03/05/19 [History] Levothyroxine Sodium [Synthroid] 88 mcg PO DAILY@0600 03/05/19 [History] predniSONE 10 mg PO DAILY 03/05/19 [History] Ferrous Sulfate [Iron (65 MG Elemental)] 325 mg PO AC-SUPPER 03/30/19 [History] Nystatin 100,000Unit/gm Cream [Mycostatin Cream] 1 applic TOPICAL BID 03/30/19 [History] Loperamide [Imodium] 2 mg PO BID PRN 04/17/19 [History] Acetaminophen Tab [Tylenol] 650 mg PO Q6HR PRN tab 04/22/19 [Rx] Pantoprazole [Protonix] 40 mg PO DAILY #15 tablet. 04/22/19 [Rx] Atorvastatin [Lipitor] 40 mg PO HS 06/01/19 [History] Losartan [Cozaar] 50 mg PO DAILY 06/01/19 [History] Apixaban [Eliquis] 5 mg PO BID 06/03/19 [History] Spironolactone [Aldactone] 50 mg PO DAILY tab 06/05/19 [Rx] Insulin Aspart [NovoLOG Flexpen] 3 unit SQ QAM 06/11/19 [History] Gabapentin [Neurontin] 100 mg PO BID #6 cap 06/20/19 [Rx] Gabapentin [Neurontin] 300 mg PO HS #3 cap 06/20/19 [Rx] Piperacillin-Tazobactam [Zosyn] 3.375 gm IVPB Q8H #21 vial 06/20/19 [Rx] oxyCODONE HCL [OxyCONTIN] 20 mg PO Q8H #6 tab 06/20/19 [Rx] Follow up Appointment(s)/Referral(s): Diaz Alcala DO [Primary Care Provider] - 1-2 days Comfort Costa MD [STAFF PHYSICIAN] - 2 Weeks Christopher Montoya MD [STAFF PHYSICIAN] - 3 Weeks Activity/Diet/Wound Care/Special Instructions: [facility] Wound vac to be changed Monday, Monday and Monday. Black foam, continuous suction at 120 mmHG.
--- NOTE | 2019-06-20 13:49 | P.PN ---
Subjective Progress Note Date: 06/20/19 CHIEF COMPLAINT: Abdominal pain HISTORY OF PRESENT ILLNESS: Patient examined this morning at the bedside. She denies abdominal pain. Tolerating diet. Denies nausea or vomiting. WBC 12.1. Vital signs stable. She is afebrile. PHYSICAL EXAM: VITAL SIGNS: Reviewed. GENERAL: Well-developed in no acute distress. HEENT: No sclera icterus. Extraocular movements grossly intact. Moist buccal mucosa. Head is atraumatic, normocephalic. ABDOMEN: Soft. Nondistended. Nontender. Wound VAC to abdomen noted. NEUROLOGIC: Alert and oriented. Cranial nerves II through XII grossly intact. ASSESSMENT: 1. Lethargy, leukocytosis 2. History of incisional hernia repair, complicated by rectus sheath hemorrhage, December 2018 3. History of postoperative intra-abdominal abscess, status post incisional hernia repair with recent removal of infected mesh PLAN: No surgical intervention recommended at this time Continue wound vac Stable for discharge from a surgical standpoint when cleared by internal medicine and infectious disease Nurse practitioner note has been reviewed by physician. Signing provider agrees with the documented findings, assessment, and plan of care. Objective - Vital Signs Vital signs: Vital Signs Temp 98.4 F 06/20/19 07:00 Pulse 80 06/20/19 07:00 Resp 16 06/20/19 08:00 BP 154/85 06/20/19 07:00 Pulse Ox 92 L 06/20/19 07:00 Intake & Output 06/19/19 06/20/19 06/20/19 18:59 06:59 18:59 Intake Total 100 Balance 100 Intake: Oral 100 Other: Voiding Method Toilet Toilet Toilet Diaper Diaper Diaper # Voids 2 2 # Bowel Movements 1 - Labs CBC & Chem 7: 06/20/19 06:39 06/20/19 06:39 Labs: Abnormal Lab Results - Last 24 Hours (Table) 06/19/19 06/19/19 06/19/19 Range/Units 06:58 14:22 17:18 WBC (3.8-10.6) k/uL RBC (3.80-5.40) m/uL Hgb (11.4-16.0) gm/dL Hct (34.0-46.0) % MCH (25.0-35.0) pg MCHC (31.0-37.0) g/dL RDW (11.5-15.5) % Plt Count (150-450) k/uL Neutrophils # (1.3-7.7) k/uL Potassium (3.5-5.1) mmol/L Glucose (74-99) mg/dL POC Glucose (mg/dL) 289 H (75-99) mg/dL Hemoglobin A1c 7.8 H (4.0-6.0) % C-Reactive Protein (<10.0) mg/L Urine Glucose (UA) 3+ H (Negative) 06/19/19 06/20/19 06/20/19 Range/Units 20:13 06:39 06:39 WBC 12.1 H (3.8-10.6) k/uL RBC 3.55 L (3.80-5.40) m/uL Hgb 8.7 L (11.4-16.0) gm/dL Hct 28.5 L (34.0-46.0) % MCH 24.6 L (25.0-35.0) pg MCHC 30.6 L (31.0-37.0) g/dL RDW 18.2 H (11.5-15.5) % Plt Count 509 H (150-450) k/uL Neutrophils # 9.5 H (1.3-7.7) k/uL Potassium 3.4 L (3.5-5.1) mmol/L Glucose 173 H (74-99) mg/dL POC Glucose (mg/dL) 254 H (75-99) mg/dL Hemoglobin A1c (4.0-6.0) % C-Reactive Protein 60.7 H (<10.0) mg/L Urine Glucose (UA) (Negative) 06/20/19 06/20/19 Range/Units 06:59 11:52 WBC (3.8-10.6) k/uL RBC (3.80-5.40) m/uL Hgb (11.4-16.0) gm/dL Hct (34.0-46.0) % MCH (25.0-35.0) pg MCHC (31.0-37.0) g/dL RDW (11.5-15.5) % Plt Count (150-450) k/uL Neutrophils # (1.3-7.7) k/uL Potassium (3.5-5.1) mmol/L Glucose (74-99) mg/dL POC Glucose (mg/dL) 177 H 380 H (75-99) mg/dL Hemoglobin A1c (4.0-6.0) % C-Reactive Protein (<10.0) mg/L Urine Glucose (UA) (Negative)
[2019-06-20 14:58] VITALS: BP 156/85; PULSE 74; RESP 18; TEMP 98.7
--- NOTE | 2019-06-20 16:23 | PN ---
PROGRESS NOTE DATE OF SERVICE: 06/20/2019 REASON FOR FOLLOWUP: Leukocytosis, possible abdominal sepsis. INTERVAL HISTORY: The patient is currently afebrile. The patient has been feeling better. The patient denies having any chest pain. No shortness of breath or cough. No nausea, vomiting abdominal pain and diarrhea. PHYSICAL EXAMINATION: Blood pressure 154/85 with a pulse of 80, temperature 98.4, she is 92% on room air. General description is an elderly female lying in bed in no distress. Respiratory system: Unlabored breathing, clear to auscultation anteriorly. Heart S1, S2. Regular rate and rhythm. Abdomen soft, no tenderness. LABS: Hemoglobin 8.7, white count 12.1, creatinine 0.80. Blood culture has been negative. Repeat urine was negative. DIAGNOSTIC IMPRESSION AND PLAN: 1. Patient admitted to the hospital with not feeling well. This patient did have an elevated white count, possible abdominal source. CT did show possible cellulitis, but no abscess. The patient's white count ( ) Zosyn to continue for about a week to 10 days with close outpatient followup. 2. Patient abdominal wound postsurgical. Local care with wound VAC and follow with the wound care center next week. MMODL / IJN: [id number] /
--- NOTE | 2019-06-24 06:52 | CDI ---
Documentation Clarification Form Date: 06/24/19 From: Paty Shepherd Phone: If you have a question about this query, please contact Teresa Duarte, Financial Compliance Manager at [phone] between 8am and 5pm. Admit Date: 06/11/19 Discharge Date: 06/20/19 Patient Name: Carolyn Sellers Visit Number: [id number] ATTENTION: The Clinical Documentation Specialists (CDI) and [facility] Coding Staff appreciate your assistance in clarifying documentation. Please respond to the clarification below the line at the bottom and electronically sign. The CDI & [facility] Coding staff will review the response and follow-up if needed. Please note: Queries are made part of the Legal Health Record. If you have any questions, please contact the author of this message via ITS. Dear Dr. Parveen Dietz, The patient presented with the following the patient had an elevated WBC count in the ER 17,000 ct of abd/pelvic did not show any acute changes and the patient was started on Zosyn and the hospital ID was consulted for further recommendations reg antibiotic therapy(Wound vac was changed and wound looks clean patient has no symptoms referable to wound VAC- patient does not look toxic, pulmonary symptoms and was suspicious for pneumonia. Concern for possible UTI). (06/12 consult) History/Risk Factors: adrenal insufficiency, s/p ischemic bowel w infection/a fib, CAD, DM, hyperlipidemia, HTN, OA hypothyroid Clinical Indicators: no fever, elevated WBC, weak Lab findings: WBC-17.9, neutrophils-14.6, lactic acid-3.4, lactic acid sepsis rflx-Y, no Cortisol, CRP-<5.0 then 60.7, Procalcitonin, Radiology findings: Anterior abdominal wall dehiscence defect redemonstrated with surrounding strandy attenuation which may reflect underlying cellulitis. No evidence for drainable collection. Vital Signs: T-97.8, P-77, R-19, BP-125/74, O2-99 Treatment: IV Zoysn, IV Solu-Cortef, IV Augmentin, discharged on IV Zosyn Consults: ID & Surgery In your professional opinion, can you please clarify the cause of leukocytosis and reason for IV Zoysn? Other, please specify Unable to determine addressed in dc summary RP/db MTDD
== END 2019-06-20 15:34 | DRG 644 ==
LOC: EC 16:03 → 3SCARD 20:50 → 4SSUR 06-14 07:17
PROVIDERS: ADMIT Hospitalist; ATTEND Hospitalist
PROC: 05HF33Z Insertion of Infusion Device into Left Cephalic Vein, Percutaneous Approach (ICD-10-PCS; principal; 2019-06-18 09:55)
DX: E27.40 Unspecified adrenocortical insufficiency (principal); K57.32 Diverticulitis of large intestine without perforation or abscess without bleeding; E87.2 Acidosis; T81.89XA Other complications of procedures, not elsewhere classified, initial encounter; E11.51 Type 2 diabetes mellitus with diabetic peripheral angiopathy without gangrene; B37.3 Candidiasis of vulva and vagina; I48.0 Paroxysmal atrial fibrillation; E03.9 Hypothyroidism, unspecified; E11.65 Type 2 diabetes mellitus with hyperglycemia; E87.6 Hypokalemia; F32.9 Major depressive disorder, single episode, unspecified; F41.9 Anxiety disorder, unspecified; I10 Essential (primary) hypertension; I25.10 Atherosclerotic heart disease of native coronary artery without angina pectoris; E78.5 Hyperlipidemia, unspecified; M47.816 Spondylosis without myelopathy or radiculopathy, lumbar region; M19.90 Unspecified osteoarthritis, unspecified site; R26.9 Unspecified abnormalities of gait and mobility; M54.5 Low back pain; G89.29 Other chronic pain; R32 Unspecified urinary incontinence; E66.9 Obesity, unspecified; Z68.29 Body mass index [BMI] 29.0-29.9, adult; Z79.01 Long term (current) use of anticoagulants; Z79.02 Long term (current) use of antithrombotics/antiplatelets; Z79.4 Long term (current) use of insulin; Z79.890 Hormone replacement therapy; Z79.891 Long term (current) use of opiate analgesic; Z79.52 Long term (current) use of systemic steroids; Z79.899 Other long term (current) drug therapy; Z86.19 Personal history of other infectious and parasitic diseases; Z87.440 Personal history of urinary (tract) infections; Z90.49 Acquired absence of other specified parts of digestive tract; Z87.891 Personal history of nicotine dependence; Z96.653 Presence of artificial knee joint, bilateral; Z71.3 Dietary counseling and surveillance; Z95.1 Presence of aortocoronary bypass graft; Z98.890 Other specified postprocedural states; Z88.5 Allergy status to narcotic agent; Z80.49 Family history of malignant neoplasm of other genital organs; Z82.49 Family history of ischemic heart disease and other diseases of the circulatory system
CPT/HCPCS: 36410; 36415; 74177; 76937; 80048; 80053; 81003; 82330; 83036; 83605; 83690; 83735; 84100; 84145; 84443; 84484; 85025; 85027; 85610; 85730; 86140; 87040; 87324; 87502; 93005; 94760; 96365; 96366; 96368; 96375; 96376; 99285

== ENCOUNTER 2019-07-15 11:41 | Day surgery (SDC) | payer MEDICARE ==
[2019-07-12 13:03] VITALS: BMI 27.3
[2019-07-15 12:00] LABS: Glucose,Whole Blood 166 mg/dL (75-99)
[2019-07-15 12:17] VITALS: PULSE 92; TEMP 981
[2019-07-15] MEDS ORDERED: LIDOCAINE 1% INJ 10MG/ML (20 ML MDV) ONE (12:33)
[2019-07-15] MEDS ORDERED: LIDOCAINE 1% INJ 10MG/ML (20 ML MDV) SQ ONE (12:34)
--- NOTE | 2019-07-15 13:17 | IR ---
EXAMINATION TYPE: IR cvc insert >=5 years DATE OF EXAM: 07/15/2019 COMPARISON: NONE CLINICAL HISTORY: Infection Needs long-term intravenous access for antibiotics. PROCEDURE: Hand hygiene obtained with soap and water and alcohol-based hand rub. After informed consent, the skin overlying the left brachial vein was localized with ultrasound and n oted to be compressible and patent. An ultrasound image was obtained and submitted on the patient's chart. The overlying skin was prepped and draped and Lidocaine was used for local anesthesia. A ski n elizabeth was made with a scalpel. Access was gained to the vein under ultrasound guidance with a 21 ga uge needle and a 0.018 inch wire was advanced. Access site was dilated with Peel-Away sheath and cat heter tailored to the appropriate length and advanced such that the distal tip is at the cavoatrial j unction. Spot image was obtained verifying placement. Catheter was fixed to the skin and a sterile dressing was placed following hemostasis. Catheter was aspirated and flushed with saline. Patient w as discharged in stable condition without complication.Maximal barrier technique is utilized. Ultras ound image is documented on the chart. Ultrasound used with sterile technique. Fluoro time and fluoroscopic images submitted to document procedure: 0.1 minutes fluoroscopy time, 18 images document the procedure IMPRESSION: STATUS POST ULTRASOUND AND FLUOROSCOPIC GUIDED PICC LINE PLACEMENT, READY FOR USE. THIS PROCEDURE WAS PERFORMED BY THE UNDERSIGNED.
[2019-07-15 13:21] VITALS: BP 162/72; RESP 16
== END 2019-07-15 13:28 ==
LOC: CATHCVL 11:41
PROVIDERS: ATTEND Radiology Diagnostic Radiology
DX: Z45.2 Encounter for adjustment and management of vascular access device (principal); I10 Essential (primary) hypertension; I25.10 Atherosclerotic heart disease of native coronary artery without angina pectoris; E78.5 Hyperlipidemia, unspecified; I48.0 Paroxysmal atrial fibrillation; E03.9 Hypothyroidism, unspecified; E11.51 Type 2 diabetes mellitus with diabetic peripheral angiopathy without gangrene; E27.40 Unspecified adrenocortical insufficiency; G89.29 Other chronic pain; F32.9 Major depressive disorder, single episode, unspecified; M47.816 Spondylosis without myelopathy or radiculopathy, lumbar region; E87.6 Hypokalemia; E66.9 Obesity, unspecified; R41.3 Other amnesia; M19.012 Primary osteoarthritis, left shoulder; M19.011 Primary osteoarthritis, right shoulder; D72.829 Elevated white blood cell count, unspecified; F41.9 Anxiety disorder, unspecified; Z95.1 Presence of aortocoronary bypass graft; Z87.891 Personal history of nicotine dependence; Z79.01 Long term (current) use of anticoagulants; Z80.49 Family history of malignant neoplasm of other genital organs; Z68.31 Body mass index [BMI] 31.0-31.9, adult; Z90.49 Acquired absence of other specified parts of digestive tract; Z98.890 Other specified postprocedural states; Z96.653 Presence of artificial knee joint, bilateral; Z82.49 Family history of ischemic heart disease and other diseases of the circulatory system; Z79.890 Hormone replacement therapy; Z79.4 Long term (current) use of insulin; Z79.891 Long term (current) use of opiate analgesic; Z79.899 Other long term (current) drug therapy; Z88.5 Allergy status to narcotic agent
CPT/HCPCS: 36573; C1751; C1769; J2001